=== PATIENT | male | born 1945 | race Caucasian/White ===

== ENCOUNTER 2023-01-26 07:24 | Outpatient (OUT) | payer MEDICARE, SELFPAY ==
[2023-01-26 07:47] LABS: Basophils Absolute Auto 0.1 10^3/uL (0.0-0.1); Basophils Percent Auto 0.7 % (0.2-2.0); Eosinophils Absolute Auto 0.4 10^3/uL (0.0-0.7); Eosinophils Percent Auto 5.6 % (0.9-7.0); Hematocrit 40.2 % (42.0-54.0); Hemoglobin 13.6 g/dL (14.0-18.0); Immature Granulocytes Abs Auto 0.02 10^3/uL (0.00-0.03); Immature Granulocytes Pct Auto 0.3 % (0.0-0.5); Lymphocytes Absolute Auto 1.6 10^3/uL (1.2-3.8); Lymphocytes Percent Auto 21.4 % (20.5-60.0); Mean Corpuscular HGB Conc 33.8 g/dL (29.9-35.2); Mean Corpuscular Hemoglobin 33.2 pg (25.9-34.0); Mean Platelet Volume 10.2 fL (9.5-13.5); Monocytes Absolute Auto 0.7 10^3/uL (0.3-0.8); Monocytes Percent Auto 9.9 % (1.7-12.0); Neutrophils Absolute Auto 4.5 10^3/uL (1.4-6.5); Neutrophils Percent Auto 62.1 % (43.0-75.0); Platelet Count 228 10^3/uL (150-450); Red Cell Distribution Width 13.5 % (11.0-15.0); White Blood Count 7.3 10^3/uL (4.0-11.0)
[2023-01-26 08:14] LABS: Alanine Aminotransferase 25 U/L (16-63); Anion Gap 11.1; Aspartate Amino Transferase 19 U/L (15-37); BUN Creatinine Ratio 8.8; Calcium 8.6 mg/dL (8.5-10.1); Carbon Dioxide 28.5 mmol/L (21.0-32.0); Chloride 103 mmol/L (98-107); Chol HDL Ratio 3.9; Cholesterol 132 mg/dL (<=200); Estimated GFR (African America >60 (>=60); Estimated GFR (Non-African Ame 51 (>=60); Glucose 159 mg/dL (74-106); HDL Cholesterol 34 mg/dL (40-60); Potassium 4.6 mmol/L (3.5-5.1); Sodium 138 mmol/L (136-145); Triglycerides 100 mg/dL (<=150)
== END 2023-01-26 07:25 | disposition home or self-care (01) ==
PROVIDERS: Visit Provider Internal Medicine Cardiovascular Disease
DX: E78.5 Hyperlipidemia, unspecified (principal); I10 Essential (primary) hypertension; I48.19 Other persistent atrial fibrillation
CPT/HCPCS: 36415; 80048; 80061; 84450; 84460; 85025

== ENCOUNTER 2023-03-02 01:07 | Emergency (ER) | payer MEDICARE, SELFPAY ==
[2023-03-02] VITALS (7 sets, daily range): BP systolic 159–207; BP diastolic 77–98; PULSE 57–59; RESP 17–19; O2SAT 95–99; BMI 30.4
--- NOTE | 2023-03-02 01:14 | ED_ITS ---
HPI - Fall General Chief Complaint: Fall Stated Complaint: FALL HEAD HIP INJURY Time Seen by Provider: 03/02/23 01:09 Source: patient and other Source comment: EMS Mode of arrival: ambulance Limitations: physical limitation History of Present Illness HPI Narrative: This 77-year-old male for evaluation after he fell at home. The patient had back surgery when he was 66 years old and 2 disks were removed. He recovered from the back surgery but has had a right-sided foot drop since that time. The patient was in the bathroom this morning when he was getting off of the toilet and slipped falling forward and striking the right side of his face just above his right eyebrow on the door and then fell backwards striking his right hip on a shower chair. He denies any loss of consciousness. He denies any dizziness or chest pain prior to his fall. He is not on any blood thinners. He denies any low back pain but complains of a headache above his left eye, left elbow pain where he landed on his left elbow, left hip pain and left-sided neck pain. He has no weakness numbness or tingling. He lives with a female head of digital. Related Data Home Medications Medication Instructions Recorded Confirmed atorvastatin 80 mg tablet mg 03/02/23 lisinopril 2.5 mg tablet mg 03/02/23 Allergies Allergy/AdvReac Type Severity Reaction Status Date / Time coconut Allergy Intermediate Verified 03/02/23 01:13 Review of Systems ROS Status of ROS 10 or more systems reviewed and unremark able except as noted in history and below Exam Narrative Exam Narrative: Nurses note and vital signs reviewed and patient is not hypoxic. Blood pressure is noted to be elevated at 207/98 General: The patient appears well and in no apparent distress. Patient is resting comfortably on cart. GCS 15 Skin: Warm, dry, no pallor noted. There is no rash noted. Head: Normocephalic, atraumatic, mild tenderness to left frontal area of forehead without crepitus, laceration or abrasion Eye: Normal conjunctiva, no drainage, EOMI. PERRL Ears, Nose, Mouth, and Throat: oral mucosa is moist. Nares patent. Cardiovascular: Regular Rate and Rhythm S1S2, no murmurs, rubs or gallops Respiratory: Patient is in no distress, no accessory muscle use, lungs are clear to auscultation, no wheezing, rales or rhonchi, no chest wall tenderness to palpation Back: non-tender, no CVA tenderness bilaterally to percussion. GI: Normal bowel sounds, no tenderness to palpation, no masses appreciated. No rebound, guarding, or rigidity noted. Stable pelvic rock Musculoskeletal: The patient has no evidence of calf tenderness, no pitting edema, symmetrical pulses noted bilaterally, he has discomfort in his right lateral hip when lifting and bending his right knee, stable pelvic rock. No leg length shortening, mild tenderness with superficial abrasion to the right elbow area where there is a healed scar, pt has full range of motion of the right arm, wrist and fingers. 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 Psychiatric: Cooperative Constitutional Vital Signs, click to edit/add: Last Vital Signs Pulse 57 L 03/02/23 01:30 Resp 19 03/02/23 01:30 BP 163/85 H 03/02/23 02:02 Pulse Ox 95 03/02/23 01:20 O2 Del Method Room Air 03/02/23 01:07 Course Vital Signs Vital signs: Vital Signs Pulse Rate 59 L 03/02/23 01:07 Respiratory Rate 18 03/02/23 01:07 Blood Pressure 207/98 H 03/02/23 01:07 Pulse Oximetry 99 03/02/23 01:07 Oxygen Delivery Method Room Air 03/02/23 01:07 Pulse Rate 57 L 03/02/23 01:30 Respiratory Rate 19 03/02/23 01:30 Blood Pressure 163/85 H 03/02/23 02:02 Pulse Oximetry 95 03/02/23 01:20 Oxygen Delivery Method Room Air 03/02/23 01:07 MDM - Fall MDM Narrative Medical decision making narrative: This 77-year-old male with a history of a drop foot for the past 10 yearss after having back surgery is brought to the emergency department by EMS after having a fall in his bathroom. The patient states that he stood up from the toilet and his right leg gave out on him causing him to fall forward and strike his forehead on the door. He then fell backwards and struck his right hip on a shower chair prior to falling down. He denies loss of consciousness. He denies any dizziness or chest pain prior to his fall. He was immobilized by EMS due to complaint of head injury and left-sided neck pain. His neuro exam was normal. He was able to move his right lower extremity despite having some pain in his right hip. EKG done upon arrival was a sinus rhythm with a prolonged QTc interval at 466 ms. He was mildly tender over his left forehead area. There is no midline bony vertebral tenderness but he was remained in a c-collar until CT scan resulted. CT scan of the head and neck was ordered due to the head injury and fall with neck pain. These are included in the body of this report did not show any acute fracture or dislocation. X-ray of the right hip and right elbow were also ordered and do not show any bony fracture or other notable abnormality. After the CT scans and x-rays resulted the patient was liberated from his c- collar and was able to ambulate with assistance and then independently. He feels comfortable being discharged home. Medical Records Medical records narrative: The [address] [address] [address] Scan Report Signed Patient: SHAHRZAD EDGAR MR#: [id number] : 1945 Acct:[id number] Age/Sex: 77 / M ADM Date: 03/02/23 Loc: ER Attending Dr: Ordering Physician: Benita Patterson Date of Service: 03/02/23 Procedure(s): CT head/brain wo con Accession Number(s): [id number] cc: Physician,Non-Staff M.DMook~ The [address] [address] Patient Name: SHAHRZAD EDGAR MRN: [id number] date: 1945 Sex: M Assigned Patient Location: ER Current Patient Location: ER Accession/Order Number: [id number] Exam Date: 03/02/2023 01:34 Report Date: 03/02/2023 02:05 At the request of: BENITA PATTERSON Procedure: CT head/brain wo con EXAM: CT head/brain wo con HISTORY: fall, head injury COMPARISON: CT head examination dated 04/19/2022. TECHNIQUE: Noncontrast axial CT images through the head were obtained with coronal and sagittal reformats. Dose reduction techniques were achieved by using automated exposure control and/or adjustment of mA and/or kV according to patient size and/or use of iterative reconstruction technique. FINDINGS: There is generalized volume loss. 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 Encephalomalacia is again seen in the left MCA territory. There is decreased attenuation within the periventricular white matter suggestive of chronic microvascular ischemic changes. There is no evidence of intracranial hemorrhage, mass, or midline shift. No extra-axial fluid collection is seen. There is a chronic left mastoid effusion. Otherwise, the visualized paranasal sinuses and mastoid air cells are clear. No skull abnormalities are identified. CT/CT head/brain wo con IMPRESSION: 1. [place] [address] CT Scan Report Signed Patient: SHAHRZAD EDGAR MR#: [id number] : 1945 Acct:[id number] Age/Sex: 77 / M ADM Date: 03/02/23 Loc: ER Attending Dr: Ordering Physician: Benita Patterson Date of Service: 03/02/23 Procedure(s): CT cervical spine wo con Accession Number(s): [id number] cc: Physician,Non-Staff M.D.~ The [place] [id number] Patient Name: SHAHRZAD EDGAR MRN: [id number] date: 1945 Sex: M Assigned Patient Location: ER Current Patient Location: ER Accession/Order Number: [id number] Exam Date: 03/02/2023 01:34 Report Date: 03/02/2023 02:14 At the request of: BENITA PATTERSON Procedure: CT cervical spine wo con EXAM: CT cervical spine wo con HISTORY: fall COMPARISON: CT cervical spine examination dated 04/19/2022. TECHNIQUE: Noncontrast axial CT images through the cervical spine were obtained with coronal and sagittal reformats. Dose reduction techniques were achieved by using automated exposure control and/or adjustment of mA and/or kV according to patient size and/or use of iterative reconstruction technique. FINDINGS: No acute fracture or subluxation is seen. The vertebral body heights are preserved. The vertebral elements are in anatomic alignment. The prevertebral soft tissues are unremarkable. There is advanced degenerative disc disease at C3-C4, C4-C5, C5-C6, C6-C7, and C7-T1. There are multilevel degenerative changes including endplate osteophytes, degenerative facet arthropathy, and uncovertebral hypertrophy. There is severe right neural foraminal narrowing at C3-C4 secondary to a posterior disc osteophyte complex. There is severe left neural foraminal narrowing at C4-C5 secondary to uncovertebral hypertrophy. There is severe bilateral neural foraminal narrowing at C5-C6 secondary to uncovertebral hypertrophy. There is moderate right neural foraminal narrowing at C7-T1 secondary to uncovertebral hypertrophy and degenerative facet arthropathy. There is mild scattered neural foraminal narrowing elsewhere. There is mild spinal canal stenosis at C3-C4 secondary to a posterior disc osteophyte complex. There is mild spinal canal stenosis at C6-C7 secondary to a posterior disc osteophyte complex. CT/CT cervical spine wo con IMPRESSION: 1. No acute fracture or subluxation of the cervical [place] [address] XRay Report Signed Patient: SHAHRZAD EDGAR MR#: [id number] : 1945 Acct:[id number] Age/Sex: 77 / M ADM Date: 03/02/23 Loc: ER Attending Dr: Ordering Physician: Benita Patterson Date of Service: 03/02/23 Procedure(s): XR elbow RT min 3V Accession Number(s): [id number] cc: Benita Patterson; Physician,Non-Staff M.D.~ The [place] [id number] Patient Name: SHAHRZAD EDGAR MRN: [id number] date: 1945 Sex: M Assigned Patient Location: ER Current Patient Location: ER Accession/Order Number: [id number] Exam Date: 03/02/2023 01:52 Report Date: 03/02/2023 02:30 At the request of: BENITA PATTERSON Procedure: XR elbow RT min 3V EXAM: XR elbow RT min 3V HISTORY: fall, elbow pain COMPARISON: None available TECHNIQUE: 3 views right elbow x-rays FINDINGS: No acute fracture line, dislocation, or focal osseous erosion. Prior surgical changes of the elbow with internal fixation device at the ulna and distal humerus. 1.2 cm osseous excrescence at the mid to distal anterior humerus is a remote benign finding. XR/XR elbow RT min 3V IMPRESSION: No radiographic evidence for acute bony injury. If there is persistent clinical concern, cross-sectional imaging to better evaluate as indicated. Electronically authenticated by: OSITO CUELLO Date: 03/02/2023 02:[address] [address] XRay Report Signed Patient: SHAHRZAD EDGAR MR#: [id number] : 1945 Acct:[id number] Age/Sex: 77 / M ADM Date: 03/02/23 Loc: ER Attending Dr: Ordering Physician: Benita Patterson Date of Service: 03/02/23 Procedure(s): XR hip RT 2V w/ pelvis Accession Number(s): [id number] cc: Benita Patterson; Physician,Non-Staff M.D.~ The [address] [address] Patient Name: SHAHRZAD EDGAR MRN: [id number] date: 1945 Sex: M Assigned Patient Location: ER Current Patient Location: ER Accession/Order Number: [id number] Exam Date: 03/02/2023 01:52 Report Date: 03/02/2023 02:30 At the request of: BENITA PATTERSON Procedure: XR hip RT 2V w/ pelvis EXAM: XR hip RT 2V w/ pelvis HISTORY: fall, hip pain COMPARISON: None. TECHNIQUE: One view of the pelvis and 2 views of the right hip were obtained. FINDINGS: No acute fracture or dislocation is seen. The femoral heads are well-seated in the acetabula. There are mild degenerative changes of the sacroiliac joints and the hip joints. The pubic symphysis is preserved. XR/XR hip RT 2V w/ pelvis IMPRESSION: 1. No acute fracture or dislocation of the pelvis or right hip is seen. If there is concern for an occult injury, cross-sectional imaging is recommended. Electronically authenticated by: Hortencia AGRAWAL Date: 03/02/2023 02:30 ECG Data Attestation: I personally reviewed and interpreted this ECG as follows: (Sinus bradycardia at 58 beats for minute, normal axis, QT prolongation at 466 ms, No acute ST segment elevation or T-wave inversion) Discharge Plan Discharge Chief Complaint: Fall Clinical Impression: Closed head injury, Contusion of elbow, right, Contusion of hip, right Patient Disposition: Home, Self-Care Prescriptions / Home Meds: No Action atorvastatin 80 mg tablet lisinopril 2.5 mg tablet Stand Alone Forms: Portal Instructions Referrals: Physician,Non-Staff, MD [Primary Care Provider] - 1 week
--- NOTE | 2023-03-02 01:14 | ECG_ITS ---
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
--- NOTE | 2023-03-02 01:15 | CT_ITS ---
The [address] [address] Patient Name: SHAHRZAD EDGAR MRN: [id number] date: 1945 Sex: M Assigned Patient Location: ER Current Patient Location: ER Accession/Order Number: [id number] Exam Date: 03/02/2023 01:34 Report Date: 03/02/2023 02:05 At the request of: YRN MARKER Procedure: CT head/brain wo con EXAM: CT head/brain wo con HISTORY: fall, head injury COMPARISON: CT head examination dated 04/19/2022. TECHNIQUE: Noncontrast axial CT images through the head were obtained with coronal and sagittal reformats. Dose reduction techniques were achieved by using automated exposure control and/or adjustment of mA and/or kV according to patient size and/or use of iterative reconstruction technique. FINDINGS: There is generalized volume loss. 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 Encephalomalacia is again seen in the left MCA territory. There is decreased attenuation within the periventricular white matter suggestive of chronic microvascular ischemic changes. There is no evidence of intracranial hemorrhage, mass, or midline shift. No extra-axial fluid collection is seen. There is a chronic left mastoid effusion. Otherwise, the visualized paranasal sinuses and mastoid air cells are clear. No skull abnormalities are identified. CT/CT head/brain wo con IMPRESSION: 1. No acute intracranial abnormality. Electronically authenticated by: Hortencia AGRAWAL Date: 03/02/2023 02:05
--- NOTE | 2023-03-02 01:15 | XR_ITS ---
The [place] [id number] Patient Name: SHAHRZAD EDGAR MRN: [id number] date: 1945 Sex: M Assigned Patient Location: ER Current Patient Location: ER Accession/Order Number: [id number] Exam Date: 03/02/2023 01:52 Report Date: 03/02/2023 02:30 At the request of: YRN MARKER Procedure: XR elbow RT min 3V EXAM: XR elbow RT min 3V HISTORY: fall, elbow pain COMPARISON: None available TECHNIQUE: 3 views right elbow x-rays FINDINGS: No acute fracture line, dislocation, or focal osseous erosion. Prior surgical changes of the elbow with internal fixation device at the ulna and distal humerus. 1.2 cm osseous excrescence at the mid to distal anterior humerus is a remote benign finding. XR/XR elbow RT min 3V IMPRESSION: No radiographic evidence for acute bony injury. If there is persistent clinical concern, cross-sectional imaging to better evaluate as indicated. Electronically authenticated by: OSITO CUELLO Date: 03/02/2023 02:30
--- NOTE | 2023-03-02 01:15 | XR_ITS ---
The [address] [address] Patient Name: SHAHRZAD EDGAR MRN: [id number] date: 1945 Sex: M Assigned Patient Location: ER Current Patient Location: ER Accession/Order Number: [id number] Exam Date: 03/02/2023 01:52 Report Date: 03/02/2023 02:30 At the request of: YRN MARKER Procedure: XR hip RT 2V w/ pelvis EXAM: XR hip RT 2V w/ pelvis HISTORY: fall, hip pain COMPARISON: None. TECHNIQUE: One view of the pelvis and 2 views of the right hip were obtained. FINDINGS: No acute fracture or dislocation is seen. The femoral heads are well-seated in the acetabula. There are mild degenerative changes of the sacroiliac joints and the hip joints. The pubic symphysis is preserved. XR/XR hip RT 2V w/ pelvis IMPRESSION: 1. No acute fracture or dislocation of the pelvis or right hip is seen. If there is concern for an occult injury, cross-sectional imaging is recommended. Electronically authenticated by: Hortencia AGRAWAL Date: 03/02/2023 02:30
[2023-03-02] MEDS: ACETAMINOPHEN 325 MG TABLET 650 MG PO (01:34)
[2023-03-02] MEDS: BACITRACIN OINTMENT 28.4 GM TUBE 1 APPLIC TOPICAL (02:58)
== END 2023-03-02 03:03 | disposition home or self-care (01) ==
PROVIDERS: Emergency Provider Emergency Medicine
DX: S09.8XXA Other specified injuries of head, initial encounter (principal); S50.01XA Contusion of right elbow, initial encounter; S70.01XA Contusion of right hip, initial encounter; W01.198A Fall on same level from slipping, tripping and stumbling with subsequent striking against other object, initial encounter; M21.371 Foot drop, right foot; Z79.899 Other long term (current) drug therapy
CPT/HCPCS: 70450; 72125; 73080; 73502; 93005; 99285

== ENCOUNTER 2023-10-04 11:45 | Observation (INO) | payer MEDICARE, SELFPAY ==
[2023-10-04] VITALS (39 sets, daily range): BP systolic 131–165; BP diastolic 70–90; PULSE 49–65; TEMP 36.4–36.6; O2SAT 92–99; BMI 27.0
--- NOTE | 2023-10-04 11:53 | XR_ITS ---
The [address] [address] Patient Name: SHAHRZAD EDGAR MRN: [id number] date: 1945 Sex: M Assigned Patient Location: ER Current Patient Location: ER Accession/Order Number: [id number] Exam Date: 10/04/2023 12:00 Report Date: 10/04/2023 14:39 At the request of: LENORA LAGOS Procedure: XR chest 1V EXAM: XR chest 1V HISTORY: AMS COMPARISON: None. TECHNIQUE: One view was performed. FINDINGS: The cardiomediastinal silhouette appears normal. Lungs are clear. There is no pleural effusion or pneumothorax. There is mild apical pleural thickening. Bones and soft tissues appear unremarkable. XR/XR chest 1V IMPRESSION: No acute cardiopulmonary process. Electronically authenticated by: RAMESH TEMPLE Date: 10/04/2023 14:39
--- NOTE | 2023-10-04 11:53 | ECG_ITS ---
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
--- NOTE | 2023-10-04 11:54 | CT_ITS ---
The [address] [address] Patient Name: SHAHRZAD EDGAR MRN: [id number] date: 1945 Sex: M Assigned Patient Location: ER Current Patient Location: ER Accession/Order Number: [id number] Exam Date: 10/04/2023 11:56 Report Date: 10/04/2023 12:25 At the request of: LENORA LAGOS Procedure: CT stroke head/brain wo con EXAMINATION: CT stroke head/brain wo con, 10/04/2023 11:56 AM EDT HISTORY: CVa symptoms COMPARISON: CT head 03/02/2023. TECHNIQUE: CT scan of the head was performed without IV contrast. CT dose reduction technique was used, including Automated Exposure Control. FINDINGS: BRAIN PARENCHYMA/CSF SPACES: Ventricles are normal in size for age. There is no hemorrhage, mass effect or midline shift. There is atherosclerotic calcification of bilateral carotid arteries. There is a stable large chronic infarct in the right parietal and temporal lobes in the middle cerebral artery distribution. There is a stable small chronic infarct in the left parietal lobe. There is mild low-attenuation in the white matter consistent with chronic small vessel ischemia and there is severe atherosclerotic carotid artery calcification. PARANASAL SINUSES: Clear. SKULL BASE AND CALVARIUM: Normal. EXTRACRANIAL SOFT TISSUES: Normal. CT/CT stroke head/brain wo con IMPRESSION: 1. No acute intracranial abnormality. 2. Stable large chronic infarct in the right MCA distribution and small chronic infarct in the left MCA distribution. 3. Atherosclerotic calcification and chronic microvascular ischemia. Electronically authenticated by: RAMESH TEMPLE Date: 10/04/2023 12:25
[2023-10-04 12:05] LABS: Basophils Absolute Auto 0.1 10^3/uL (0.0-0.1); Basophils Percent Auto 0.8 % (0.2-2.0); Eosinophils Absolute Auto 0.4 10^3/uL (0.0-0.7); Eosinophils Percent Auto 5.7 % (0.9-7.0); Hematocrit 37.7 % (42.0-54.0); Hemoglobin 13.1 g/dL (14.0-18.0); Immature Granulocytes Abs Auto 0.04 10^3/uL (0.00-0.03); Immature Granulocytes Pct Auto 0.5 % (0.0-0.5); Lymphocytes Percent Auto 25.8 % (20.5-60.0); Mean Corpuscular HGB Conc 34.7 g/dL (29.9-35.2); Mean Corpuscular Hemoglobin 34.2 pg (25.9-34.0); Mean Corpuscular Volume 98.4 fL (80.0-94.0); Mean Platelet Volume 10.5 fL (9.5-13.5); Monocytes Absolute Auto 0.9 10^3/uL (0.3-0.8); Neutrophils Absolute Auto 4.4 10^3/uL (1.4-6.5); Neutrophils Percent Auto 56.2 % (43.0-75.0); Platelet Count 215 10^3/uL (150-450); Red Blood Count 3.83 10^6/uL (4.70-6.10); Red Cell Distribution Width 13.8 % (11.0-15.0); White Blood Count 7.7 10^3/uL (4.0-11.0)
[2023-10-04 12:08] LABS: Glucometer 116 mg/dL (74-106)
[2023-10-04 12:25] LABS: Anion Gap 10.3; BUN Creatinine Ratio 11.1; Calcium 8.3 mg/dL (8.5-10.1); Carbon Dioxide 27.3 mmol/L (21.0-32.0); Chloride 104 mmol/L (98-107); Estimated GFR (African America >60 (>=60); Estimated GFR (Non-African Ame 56 (>=60); Glucose 118 mg/dL (74-106); Potassium 3.6 mmol/L (3.5-5.1); Sodium 138 mmol/L (136-145); Troponin I High Sensitivity 6.8 pg/mL (4.0-76.1)
[2023-10-04 12:55] LABS: INR 0.99; Prothrombin Time 10.5 sec (9.0-11.6)
--- NOTE | 2023-10-04 13:40 | ED.GENADUL1 ---
HPI HPI - General Adult General Chief complaint: Altered Mental Status Stated complaint: ALTERED MENTAL STATUS Time Seen by Provider: 10/04/23 11:50 Mode of arrival: ambulance History of Present Illness HPI narrative: 77-year-old male to the emergency department chief complaint of confusion, generalized weakness. EMS brought the patient to the emergency department with concern for stroke. 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 Symptoms began on Thursday after he attended a . Patient reports nonspecific symptoms of feeling generally unwell, generalized weakness. He denies any fever, sweats, chills. Denies any nausea or vomiting. reports that today he woke up at 9 AM and reported that his left side felt funny. This is the side affected by the stroke previously. He thought he had some tingling on that side. He told his to call 911 as he may be having a stroke. Related Data Home Medications ?Medication ?Instructions ?Recorded ?Confirmed atorvastatin 80 mg tablet 80 mg PO DAILY 03/02/23 10/04/23 lisinopril 2.5 mg tablet 2.5 mg PO DAILY 03/02/23 10/04/23 sotalol 120 mg tablet (Sotalol AF) 120 mg PO Q12H 10/04/23 10/04/23 Allergies Allergy/AdvReac Type Severity Reaction Status Date / Time coconut Allergy Intermediate Verified 03/02/23 01:13 Opioid HPI Opioid Management Most Recent Opioid Data: Last ED Pain Assessment 10/04/23 12:11 Review of Systems ROS Status of ROS 10 or more systems reviewed and unremarkable except as noted in history and below Exam Narrative Exam Narrative: Physical exam: VITALS: I have reviewed the triage vital signs. GENERAL: Well developed, well appearing adult in no acute distress. NEURO: Alert and oriented. Moves all extremities. Face is symmetric and expressive. NIHSS as below. EYES: PERRL. No scleral icterus or conjunctival injection. No discharge. HENT: Normocephalic, atraumatic. Hearing is grossly intact. Nares grossly patent and without discharge. Mucous membranes moist. NECK: No JVD. Patient moves neck without restriction. CARDIO: Rhythm regular. Normal rate. No murmur, rub, or gallop. Pulses equal bilaterally in the upper and lower extremity. No lower extremity edema. PULM: Lungs clear to auscultation in all blunt. No wheezes, rales, or rhonchi. No conversational dyspnea. No splinting, stridor, or accessory muscle use. GI/: Abdomen is soft and non-tender. Normoactive bowel sounds. EXTREMITIES: Symmetric muscle bulk. No joint swelling. No clubbing, cyanosis, or deformity. SKIN: Warm and dry. Normal turgor. No rash or lesions appreciated. PSYCH: Mood, affect, and interaction is appropriate to the setting. 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: Obeys both correctly = 0 Best gaze: Normal = 0 Visual field testing: No visual field loss = 0 Facial paresis: Normal symmetric movement = 0 Motor function left arm: Drift = 1 Motor function right arm: Normal = 0 Motor function left leg: Drift = 1 Motor function right leg: Normal = 0 Limb ataxia: No ataxia = 0 Sensory: Subjective sensation change on left = 1 Best language: No aphasia = 0 Dysarthria: Normal articulation = 0 Extinction and inattention: Normal = 0 Total Score (severe deficit >22): 3 Constitutional Vital Signs, click to edit/add: Last Vital Signs Temp 97.9 F 10/04/23 11:49 Pulse 52 L 10/04/23 12:40 Resp 18 10/04/23 12:50 BP 131/86 10/04/23 12:30 Pulse Ox 96 10/04/23 12:40 O2 Del Method Room Air 10/04/23 12:11 Course Vital Signs Vital signs: Vital Signs Temperature 97.9 F 10/04/23 11:49 Pulse Rate 65 10/04/23 11:49 Respiratory Rate 20 10/04/23 11:49 Blood Pressure 156/81 H 10/04/23 11:49 Pulse Oximetry 97 10/04/23 11:49 Oxygen Delivery Method Room Air 10/04/23 11:49 Temperature 97.9 F 10/04/23 11:49 Pulse Rate 52 L 10/04/23 12:40 Respiratory Rate 18 10/04/23 12:50 Blood Pressure 131/86 10/04/23 12:30 Pulse Oximetry 96 10/04/23 12:40 Oxygen Delivery Method Room Air 10/04/23 12:11 Medical Decision Making MDM Narrative Medical decision making narrative: 77-year-old male to the emergency department chief complaint of several days of feeling unwell, generalized weakness. Vital stable, the patient is afebrile. Per EMS's description and 's description via telephone to nurse Willis patient appears to be at his neurologic baseline with left-sided weakness and paresthesia. By chart review he does have a history of a right MCA and a left MCA stroke. The right MCA was a very large stroke. CT head is negative except for his chronic findings of right and left MCA infarct. Lab work is unremarkable. COVID testing negative. tPA was not given to this patient as he is not within the window, low NIHSS stroke scale (baseline), other diagnosis more likely than ischemic stroke. Case was discussed with Dr. Avila the hospitalist who agreed admit the patient. [facility]. I did discuss with Dr. Partida who agrees with care thus far, no TPA, OK to stay at [place] for work-up. [facility] DATA #[id number]: Stroke & Stroke Rehabilitation: Thrombolytic Therapy [x] Patient arrived more than 3.5 hours after last known well time, or the time last known well is unknown Medical Records Medical records reviewed: Yes I reviewed the patient's medical records Lab Data Lab results reviewed: Yes I reviewed the patient's lab results Labs: Lab Results 10/04/23 10/04/23 10/04/23 Range/Units 11:53 12:06 12:35 WBC 7.7 (4.0-11.0) 10^3/uL RBC 3.83 L (4.70-6.10) 10^6/uL Hgb 13.1 L (14.0-18.0) g/dL Hct 37.7 L (42.0-54.0) % MCV 98.4 H (80.0-94.0) fL MCH 34.2 H (25.9-34.0) pg MCHC 34.7 (29.9-35.2) g/dL RDW 13.8 (11.0-15.0) % Plt Count 215 (150-450) 10^3/uL MPV 10.5 (9.5-13.5) fL Neut % (Auto) 56.2 (43.0-75.0) % Lymph % (Auto) 25.8 (20.5-60.0) % [place] % (Auto) 11.0 (1.7-12.0) % Eos % (Auto) 5.7 (0.9-7.0) % Baso % (Auto) 0.8 (0.2-2.0) % Neut # (Auto) 4.4 (1.4-6.5) 10^3/uL Lymph # (Auto) 2.0 (1.2-3.8) 10^3/uL [place] # (Auto) 0.9 H (0.3-0.8) 10^3/uL Eos # (Auto) 0.4 (0.0-0.7) 10^3/uL Baso # (Auto) 0.1 (0.0-0.1) 10^3/uL Abs Immat Gran (auto) 0.04 H (0.00-0.03) 10^3/uL Imm/Tot Granulo (auto) 0.5 (0.0-0.5) % PT 10.5 (9.0-11.6) sec INR 0.99 APTT 28.0 (22.3-36.2) sec Sodium 138 (136-145) mmol/L Potassium 3.6 (3.5-5.1) mmol/L Chloride 104 (98-107) mmol/L Carbon Dioxide 27.3 (21.0-32.0) mmol/L Anion Gap 10.3 BUN 14.0 (7.0-18.0) mg/dL Creatinine 1.26 (0.70-1.30) mg/dL Est GFR ( Amer) >60 (>=60) Est GFR (Non-Af Amer) 56 L (>=60) BUN/Creatinine Ratio 11.1 Glucose 118 H (74-106) mg/dL Calcium 8.3 L (8.5-10.1) mg/dL Troponin I High Sens 6.8 (4.0-76.1) pg/mL SARS-CoV-2 Ag (CV2AG) (NEGATIVE) POC Glucose 116 H (74-106) mg/dL 10/04/23 Range/Units 13:09 WBC (4.0-11.0) 10^3/uL RBC (4.70-6.10) 10^6/uL Hgb (14.0-18.0) g/dL Hct (42.0-54.0) % MCV (80.0-94.0) fL MCH (25.9-34.0) pg MCHC (29.9-35.2) g/dL RDW (11.0-15.0) % Plt Count (150-450) 10^3/uL MPV (9.5-13.5) fL Neut % (Auto) (43.0-75.0) % Lymph % (Auto) (20.5-60.0) % [place] % (Auto) (1.7-12.0) % Eos % (Auto) (0.9-7.0) % Baso % (Auto) (0.2-2.0) % Neut # (Auto) (1.4-6.5) 10^3/uL Lymph # (Auto) (1.2-3.8) 10^3/uL [place] # (Auto) (0.3-0.8) 10^3/uL Eos # (Auto) (0.0-0.7) 10^3/uL Baso # (Auto) (0.0-0.1) 10^3/uL Abs Immat Gran (auto) (0.00-0.03) 10^3/uL Imm/Tot Granulo (auto) (0.0-0.5) % PT (9.0-11.6) sec INR APTT (22.3-36.2) sec Sodium (136-145) mmol/L Potassium (3.5-5.1) mmol/L Chloride (98-107) mmol/L Carbon Dioxide (21.0-32.0) mmol/L Anion Gap BUN (7.0-18.0) mg/dL Creatinine (0.70-1.30) mg/dL Est GFR ( Amer) (>=60) Est GFR (Non-Af Amer) (>=60) BUN/Creatinine Ratio Glucose (74-106) mg/dL Calcium (8.5-10.1) mg/dL Troponin I High Sens (4.0-76.1) pg/mL SARS-CoV-2 Ag (CV2AG) Negative (NEGATIVE) POC Glucose (74-106) mg/dL Imaging Data CT scan - head: Radiologist's impression: ITS Impressions Brain CT 10/04/23 11:54 IMPRESSION: 1. No acute intracranial abnormality. 2. Stable large chronic infarct in the right MCA distribution and small chronic infarct in the left MCA distribution. 3. Atherosclerotic calcification and chronic microvascular ischemia. Electronically authenticated by: RAMESH TEMPLE Date: 10/04/2023 12:25 ECG Data Attestation: I personally reviewed and interpreted this ECG as follows: (Sinus david at 56. No stemi. Normal QTc. ) Critical Care Time Critical Care Time Critical Care Time: Yes Total Critical Care Time: 32 Attestation: Critical Care Procedure Note Authorized and Performed by: Amor Tyler DO Total critical care time: 32 min Due to a high probability of clinically significant, life threatening deterioration, the patient required my highest level of preparedness to intervene emergently and I personally spent this critical care time directly and personally managing the patient. This critical care time included obtaining a history; examining the patient; pulse oximetry; ordering and review of studies; arranging urgent treatment with development of a management plan; evaluation of patient's response to treatment; frequent reassessment; and, discussions with other providers. This critical care time was performed to assess and manage the high probability of imminent, life-threatening deterioration that could result in multi-organ failure. It was exclusive of separately billable procedures and treating other patients and teaching time. Please see MDM section and the rest of the note for further information on patient assessment and treatment. Discharge Plan Discharge Chief Complaint: Altered Mental Status Clinical Impression: Generalized weakness, Acute metabolic encephalopathy, History of stroke Patient Disposition: Admitted as Observation Time of Disposition Decision: 14:03 Condition: Fair Prescriptions / Home Meds: No Action atorvastatin 80 mg tablet 80 mg PO DAILY lisinopril 2.5 mg tablet 2.5 mg PO DAILY sotalol [Sotalol AF] 120 mg tablet 120 mg PO Q12H Print Language: Icelandic Referrals: Physician,Non-Staff, MD [Primary Care Provider] - 1 week
[2023-10-04 13:55] LABS: Internal Control Within Normal Limits; SARS-CoV-2 Ag NEGATIVE (NEGATIVE)
--- NOTE | 2023-10-04 14:13 | P.HP_ITS ---
HPI H&P: HPI History of Present Illness Chief complaint: ALTERED MENTAL STATUS Narrative: Patient was seen and evaluated in the emergency room after feeling like he was having a stroke earlier in the day. He had tingling into his left arm. That is since resolved. He felt maybe the left arm is a little weaker than normal. He did suffer a stroke in the past with resultant left-sided weakness. This morning however he just tripped and fell. 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 When I saw patient in the emergency room, he was sitting in the cot resting comfortably, denied any current complaints, denied current chest pain states earlier in the day he did have chest pain as well. More pressure type. Has not had any other anginal symptoms leading up to today. Currently he just feels weak, still feels like the left side may be is weaker than it normally is for him. He was exposed to COVID 5 days ago. COVID test is negative. Opioid HPI Opioid Management Most Recent Pain and Opioid Data: Last ED Pain Assessment 10/04/23 12:11 Review of Systems ROS Status of ROS 10 or more systems reviewed and unremark able except as noted in history and below Meds Home Medications and Allergies Home Medications ?Medication ?Instructions ?Recorded ?Confirmed ?Type atorvastatin 80 mg tablet 80 mg PO DAILY 03/02/23 10/04/23 History lisinopril 2.5 mg tablet 2.5 mg PO DAILY 03/02/23 10/04/23 History sotalol 120 mg tablet (Sotalol AF) 120 mg PO Q12H 10/04/23 10/04/23 History Allergies Allergy/AdvReac Type Severity Reaction Status Date / Time coconut Allergy Intermediate Verified 03/02/23 01:13 Exam Constitutional Vital Signs, click to edit/add: Last Vital Signs Temp 97.9 F 10/04/23 11:49 Pulse 52 L 10/04/23 12:40 Resp 18 10/04/23 12:50 BP 131/86 10/04/23 12:30 Pulse Ox 96 10/04/23 12:40 O2 Del Method Room Air 10/04/23 12:11 Documenting provider has reviewed patient's vital signs: yes Common normals: no apparent distress Neck & C-Spine Common normals: full ROM, no lymphadenopathy, supple, no meningeal signs and no carotid bruits Respiratory Common normals: normal respiratory effort and no retractions Cardio Common normals: regular rate, regular rhythm and no murmurs GI Common normals: Normal to inspection, nondistended, normoactive bowel sounds present, soft to palpation, no hepatosplenomegaly and no masses Neuro Common normals: oriented x3, CN's II-XII intact bilaterally and moves all extremities; focal motor deficits (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, left drift) Results Labs Labs: Short CBC 10/04/23 Range/Units 11:53 WBC 7.7 (4.0-11.0) 10^3/uL Hgb 13.1 L (14.0-18.0) g/dL Hct 37.7 L (42.0-54.0) % Plt Count 215 (150-450) 10^3/uL BMP 10/04/23 11:53 Sodium 138 Potassium 3.6 Chloride 104 Carbon Dioxide 27.3 BUN 14.0 Creatinine 1.26 Glucose 118 H Calcium 8.3 L Assessment and Plan Assessment and Plan (1) History of stroke: (2) Generalized weakness: (3) Acute metabolic encephalopathy: Plan Patient with some altered mental status morning, left-sided weakness and tingling, consult to telestroke has been placed, history of CVA with resultant left-sided weakness. Currently he is without symptoms. Check MRI scan and CTA neck tomorrow. Consult to telestroke, start patient on baby aspirin. Neurochecks. Telemetry. Hypertension by history-bradycardic. Will decrease his blood pressure medication dosing. Watch closely may need to increase his JENNIFER inhibitor. Continue with sotalol but 80 mg twice a day Altered mental status, return to baseline currently, exposed to COVID but COVID test is negative. Check thyroid profile and urinalysis. Sinus bradycardia likely related to blood pressure medication-monitor on telemetry Admission status: Patient with a history of CVA with resultant left-sided weakness. Progress today with tingling, new onset the patient, that has resolved, consult to telestroke, medically necessary treatment likely will span 1 midnight, place patient observation status
[2023-10-04 14:43] LABS: Troponin I High Sensitivity 6.9 pg/mL (4.0-76.1)
[2023-10-04 14:54] LABS: Alanine Aminotransferase 22 U/L (16-63); Albumin Globulin Ratio 0.9; Albumin Level 3.5 g/dL (3.4-5.0); Alkaline Phosphatase 94 U/L (46-116); Aspartate Amino Transferase 16 U/L (15-37); Bilirubin Direct 0.3 mg/dL (0.0-0.2); Bilirubin Total 1.1 mg/dL (0.2-1.0); Free T3 2.27 pg/mL (2.18-3.98); Globulin 3.7 g/dL; Magnesium 1.8 mg/dL (1.8-2.4); Thyroid Stimulating Hormone 1.606 uIU/mL (0.358-3.740); Total Protein 7.2 g/dL (6.4-8.2)
[2023-10-04 17:48] LABS: Troponin I High Sensitivity 6.9 pg/mL (4.0-76.1)
[2023-10-04] MEDS: SOTALOL HCL 80 MG TABLET PO (20:40)
[2023-10-05] VITALS: PULSE 51
[2023-10-05 02:00] VITALS: PULSE 50
[2023-10-05 03:15] VITALS: BP 148/79; PULSE 54; TEMP 36.7; O2SAT 94
[2023-10-05 04:00] VITALS: PULSE 51
[2023-10-05 05:33] LABS: Basophils Absolute Auto 0.1 10^3/uL (0.0-0.1); Basophils Percent Auto 0.6 % (0.2-2.0); Eosinophils Absolute Auto 0.4 10^3/uL (0.0-0.7); Eosinophils Percent Auto 4.9 % (0.9-7.0); Hematocrit 37.7 % (42.0-54.0); Hemoglobin 12.7 g/dL (14.0-18.0); Immature Granulocytes Abs Auto 0.01 10^3/uL (0.00-0.03); Immature Granulocytes Pct Auto 0.1 % (0.0-0.5); Lymphocytes Absolute Auto 1.7 10^3/uL (1.2-3.8); Lymphocytes Percent Auto 21.8 % (20.5-60.0); Mean Corpuscular HGB Conc 33.7 g/dL (29.9-35.2); Mean Corpuscular Hemoglobin 33.5 pg (25.9-34.0); Mean Corpuscular Volume 99.5 fL (80.0-94.0); Mean Platelet Volume 10.3 fL (9.5-13.5); Monocytes Absolute Auto 0.7 10^3/uL (0.3-0.8); Monocytes Percent Auto 9.4 % (1.7-12.0); Neutrophils Absolute Auto 4.9 10^3/uL (1.4-6.5); Neutrophils Percent Auto 63.2 % (43.0-75.0); Platelet Count 199 10^3/uL (150-450); Red Blood Count 3.79 10^6/uL (4.70-6.10); Red Cell Distribution Width 13.7 % (11.0-15.0); White Blood Count 7.7 10^3/uL (4.0-11.0)
[2023-10-05 05:53] LABS: Anion Gap 12.4; BUN Creatinine Ratio 11.1; Calcium 8.5 mg/dL (8.5-10.1); Carbon Dioxide 25.6 mmol/L (21.0-32.0); Chloride 103 mmol/L (98-107); Estimated GFR (African America >60 (>=60); Estimated GFR (Non-African Ame 56 (>=60); Glucose 119 mg/dL (74-106); Sodium 137 mmol/L (136-145)
--- NOTE | 2023-10-05 06:00 | CT_ITS ---
The [address] [address] Patient Name: SHAHRZAD EDGAR MRN: [id number] date: 1945 Sex: M Assigned Patient Location: [place] Current Patient Location: [place] Accession/Order Number: [id number] Exam Date: 10/05/2023 08:34 Report Date: 10/05/2023 09:33 At the request of: ZACHARIAH OCHOA Procedure: CT angio neck EXAM: CT angio neck, CT angio head HISTORY: AMS COMPARISON: CT head 10/04/2023. TECHNIQUE: Post contrast CTA imaging of the head and neck was performed with coronal and sagittal reformats. Maximum intensity projection and 3-D reformats were performed on a separate workstation. NASCET criteria was utilized. This CT exam was performed using one or more of the following dose reduction techniques: Automated exposure control, adjustment of the MA and/or kV according to patient size, or use of iterative reconstruction technique. FINDINGS: Calvarium/skull base: No evidence of acute fracture or destructive lesion. Mastoids and middle ears demonstrate no substantial mucosal disease. Paranasal sinuses: No air fluid levels. Brain: No acute intracranial hemorrhage. No acute large vascular territory infarct. No mass lesion or mass effect. No hydrocephalus. Aortic arch: Imaged portion shows no evidence of aneurysm. No significant stenosis of the major origins of the major arch vessels. Right carotid system: There is dense atherosclerotic calcification of the high right common carotid artery and carotid bulb with slightly lesser involvement of the origin of the right internal and external carotid arteries. There is short segment approximately 50% stenosis involving the carotid bulb. Left carotid system: Mixed atherosclerotic changes present involving the left carotid system greater involving the carotid bulb and origin of the internal carotid artery without hemodynamically significant stenosis. Vertebral arteries: The left vertebral artery originates from the aortic arch. Left vertebral artery dominance. No evidence of significant (50% or greater) stenosis or occlusion. Anterior circulation: No evidence of aneurysm, significant stenosis, or occlusion. Vertebrobasilar system: No evidence of aneurysm, significant stenosis, or occlusion. Bilateral type posterior cerebral arteries. Venous sinuses: Grossly patent. Additional findings: Mild emphysema involving the visualized upper lungs. No abnormal intraparenchymal enhancement. CT/CT angio neck IMPRESSION: 1. Approximately 50% short segment stenosis involving the right carotid bulb. 2. There is otherwise no significant stenosis, large vessel occlusion or aneurysm involving the remaining neck or intracranial arterial vasculature. 3. Normal variant anatomy involving the posterior circulation. Electronically authenticated by: EULALIO COCHRAN Date: 10/05/2023 09:33
[2023-10-05 06:16] VITALS: PULSE 52
--- NOTE | 2023-10-05 06:49 | P.DS_ITS ---
DS: Providers Provider Date of admission: 10/04/23 16:15 Primary care physician: Non-Staff Physician, Consults: 10/04/23 13:50 Consult to Telestroke Routine Reason for consultation: left weakness Has provider been notified: Yes 10/04/23 14:04 Consult to Pharmacy Routine Consulting Provider: Reason for consultation: Please [place] me when Med Rec is Updated Has provider been notified: No Occupational Therapy Eval and Treat Routine Reason for consultation: Only if needed for Rehab Has provider been notified: No Physical Therapy Eval and Treat Routine Reason for consultation: Eval and Treat Has provider been notified: No 10/05/23 07:15 Consult to Telestroke Routine Reason for consultation: follow up from ER Has provider been notified: No DS: Diagnosis Discharge Diagnosis (1) History of stroke: (2) Generalized weakness: (3) Acute metabolic encephalopathy: Plan Patient with some altered mental status morning, left-sided weakness and tingling, consult to telestroke has been placed, history of CVA with resultant left-sided weakness. Currently he is without symptoms. Check MRI scan and CTA neck tomorrow. Consult to telestroke, start patient on baby aspirin. Neurochecks. Telemetry. Hypertension by history-bradycardic. Will decrease his blood pressure medication dosing. Watch closely may need to increase his JENNIFER inhibitor. Continue with sotalol but 80 mg twice a day Altered mental status, return to baseline currently, exposed to COVID but COVID test is negative. Check thyroid profile and urinalysis. Sinus bradycardia likely related to blood pressure medication-monitor on telemetry Admission status: Patient with a history of CVA with resultant left-sided weakness. Progress today with tingling, new onset the patient, that has resolved, consult to telestroke, medically necessary treatment likely will span 1 midnight, place patient observation status ? DS: Summary Hospital Course Hospital Course: Patient was seen and evaluated in the emergency room after he told his that he thought he was having a recurrence of his stroke. Is having tingling of his left arm, this episode lasted for approximately 3 hours. Evaluation in the emergency room was unremarkable. No new neurological deficits, he has some left-sided weakness persisting from previous stroke. He was admitted overnight for observation, CT scan head and neck were completed without any significant acute changes. He feels back to his baseline. He would prefer to be discharged to home in with continue with any workup as an outpatient. Aspirin was not on his home medication list but add an aspirin a day. Follow-up with his PCP within the next week. Medications see list. Status at Discharge Overall status at discharge: patient is back to baseline Time Spent with Patient Time attestation: Total time spent providing and/or coordinating discharge services: Time spent: greater than 30 minutes Exam Constitutional Vital Signs, click to edit/add: Last Vital Signs Temp 98.0 F 10/05/23 03:15 Pulse 52 L 10/05/23 06:16 Resp 18 10/05/23 03:15 BP 148/79 H 10/05/23 03:15 Pulse Ox 94 L 10/05/23 03:15 O2 Del Method Room Air 10/05/23 03:15 Documenting provider has reviewed patient's vital signs: yes Common normals: no apparent distress Neck & C-Spine Common normals: full ROM, no lymphadenopathy, supple, no meningeal signs and no carotid bruits Respiratory Common normals: normal respiratory effort and no retractions Cardio Common normals: regular rate, regular rhythm and no murmurs GI Common normals: Normal to inspection, nondistended, normoactive bowel sounds present, soft to palpation, no hepatosplenomegaly and no masses Neuro Common normals: oriented x3, CN's II-XII intact bilaterally and moves all extremities; focal motor deficits (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 pitching coach strength, left drift) DS: Data Data Completed and Pending Labs on day of discharge: Labs from last 24 hours 10/05/23 10/04/23 10/04/23 05:22 17:27 14:21 WBC 7.7 RBC 3.79 L Hgb 12.7 L Hct 37.7 L MCV 99.5 H MCH 33.5 MCHC 33.7 RDW 13.7 Plt Count 199 MPV 10.3 Neut % (Auto) 63.2 Lymph % (Auto) 21.8 [place] % (Auto) 9.4 Eos % (Auto) 4.9 Baso % (Auto) 0.6 Neut # (Auto) 4.9 Lymph # (Auto) 1.7 [place] # (Auto) 0.7 Eos # (Auto) 0.4 Baso # (Auto) 0.1 Abs Immat Gran (auto) 0.01 Imm/Tot Granulo (auto) 0.1 PT INR APTT Sodium 137 Potassium 4.0 Chloride 103 Carbon Dioxide 25.6 Anion Gap 12.4 BUN 14.0 Creatinine 1.26 Est GFR ( Amer) >60 Est GFR (Non-Af Amer) 56 L BUN/Creatinine Ratio 11.1 Glucose 119 H Calcium 8.5 Magnesium 1.8 Total Bilirubin 1.1 H Direct Bilirubin 0.3 H AST 16 ALT 22 Alkaline Phosphatase 94 Troponin I High Sens 6.9 6.9 Total Protein 7.2 Albumin 3.5 Globulin 3.7 Albumin/Globulin Ratio 0.9 TSH 1.606 Thyroxine (T4) 9.40 Free T3 2.27 SARS-CoV-2 Ag (CV2AG) POC Glucose 10/04/23 10/04/23 10/04/23 13:09 12:35 12:06 WBC RBC Hgb Hct MCV MCH MCHC RDW Plt Count MPV Neut % (Auto) Lymph % (Auto) [place] % (Auto) Eos % (Auto) Baso % (Auto) Neut # (Auto) Lymph # (Auto) [place] # (Auto) Eos # (Auto) Baso # (Auto) Abs Immat Gran (auto) Imm/Tot Granulo (auto) PT 10.5 INR 0.99 APTT 28.0 Sodium Potassium Chloride Carbon Dioxide Anion Gap BUN Creatinine Est GFR ( Amer) Est GFR (Non-Af Amer) BUN/Creatinine Ratio Glucose Calcium Magnesium Total Bilirubin Direct Bilirubin AST ALT Alkaline Phosphatase Troponin I High Sens Total Protein Albumin Globulin Albumin/Globulin Ratio TSH Thyroxine (T4) Free T3 SARS-CoV-2 Ag (CV2AG) Negative POC Glucose 116 H 10/04/23 11:53 WBC 7.7 RBC 3.83 L Hgb 13.1 L Hct 37.7 L MCV 98.4 H MCH 34.2 H MCHC 34.7 RDW 13.8 Plt Count 215 MPV 10.5 Neut % (Auto) 56.2 Lymph % (Auto) 25.8 [place] % (Auto) 11.0 Eos % (Auto) 5.7 Baso % (Auto) 0.8 Neut # (Auto) 4.4 Lymph # (Auto) 2.0 [place] # (Auto) 0.9 H Eos # (Auto) 0.4 Baso # (Auto) 0.1 Abs Immat Gran (auto) 0.04 H Imm/Tot Granulo (auto) 0.5 PT INR APTT Sodium 138 Potassium 3.6 Chloride 104 Carbon Dioxide 27.3 Anion Gap 10.3 BUN 14.0 Creatinine 1.26 Est GFR ( Amer) >60 Est GFR (Non-Af Amer) 56 L BUN/Creatinine Ratio 11.1 Glucose 118 H Calcium 8.3 L Magnesium Total Bilirubin Direct Bilirubin AST ALT Alkaline Phosphatase Troponin I High Sens 6.8 Total Protein Albumin Globulin Albumin/Globulin Ratio TSH Thyroxine (T4) Free T3 SARS-CoV-2 Ag (CV2AG) POC Glucose Discharge Plan Discharge Disposition: Home, Self-Care Condition: Fair Discharge Medications: New sotalol 80 mg Tablet 80 mg PO BID Qty: 60 11RF aspirin 81 mg Tablet,Delayed Release (Dr/Ec) 81 mg PO QD Qty: 30 11RF lisinopril 10 mg Tablet 5 mg PO DAILY Qty: 30 11RF Continued atorvastatin 80 mg tablet 80 mg PO DAILY Discontinued lisinopril 2.5 mg tablet 2.5 mg PO DAILY sotalol [Sotalol AF] 120 mg tablet 120 mg PO Q12H Print Language: [place] Citizen Patient Instructions: Lisinopril (By mouth), Aspirin (By mouth), Sotalol (By mouth), Encephalopathy (DC) Forms: Portal Instructions Follow Up Appointments: October 11 @ 1pm with Desiree Cuellar NP [id number] [facility] [phone] Discharge Date/Time: 10/05/23 10:45
[2023-10-05 08:00] VITALS: BP 168/83; PULSE 59; TEMP 36.5; O2SAT 95
--- NOTE | 2023-10-05 08:25 | CT_ITS ---
The [address] [address] Patient Name: SHAHRZAD EDGAR MRN: [id number] date: 1945 Sex: M Assigned Patient Location: MS Current Patient Location: MS Accession/Order Number: [id number] Exam Date: 10/05/2023 08:34 Report Date: 10/05/2023 09:33 At the request of: ZACHARIAH OCHOA Procedure: CT angio head EXAM: CT angio neck, CT angio head HISTORY: AMS COMPARISON: CT head 10/04/2023. TECHNIQUE: Post contrast CTA imaging of the head and neck was performed with coronal and sagittal reformats. Maximum intensity projection and 3-D reformats were performed on a separate workstation. NASCET criteria was utilized. This CT exam was performed using one or more of the following dose reduction techniques: Automated exposure control, adjustment of the MA and/or kV according to patient size, or use of iterative reconstruction technique. FINDINGS: Calvarium/skull base: No evidence of acute fracture or destructive lesion. Mastoids and middle ears demonstrate no substantial mucosal disease. Paranasal sinuses: No air fluid levels. Brain: No acute intracranial hemorrhage. No acute large vascular territory infarct. No mass lesion or mass effect. No hydrocephalus. Aortic arch: Imaged portion shows no evidence of aneurysm. No significant stenosis of the major origins of the major arch vessels. Right carotid system: There is dense atherosclerotic calcification of the high right common carotid artery and carotid bulb with slightly lesser involvement of the origin of the right internal and external carotid arteries. There is short segment approximately 50% stenosis involving the carotid bulb. Left carotid system: Mixed atherosclerotic changes present involving the left carotid system greater involving the carotid bulb and origin of the internal carotid artery without hemodynamically significant stenosis. Vertebral arteries: The left vertebral artery originates from the aortic arch. Left vertebral artery dominance. No evidence of significant (50% or greater) stenosis or occlusion. Anterior circulation: No evidence of aneurysm, significant stenosis, or occlusion. Vertebrobasilar system: No evidence of aneurysm, significant stenosis, or occlusion. Bilateral type posterior cerebral arteries. Venous sinuses: Grossly patent. Additional findings: Mild emphysema involving the visualized upper lungs. No abnormal intraparenchymal enhancement. CT/CT angio head IMPRESSION: 1. Approximately 50% short segment stenosis involving the right carotid bulb. 2. There is otherwise no significant stenosis, large vessel occlusion or aneurysm involving the remaining neck or intracranial arterial vasculature. 3. Normal variant anatomy involving the posterior circulation. Electronically authenticated by: EULALIO COCHRAN Date: 10/05/2023 09:33
--- NOTE | 2023-10-05 09:15 | CM.NOTE ---
Rounds made with Dr. Avila. Potential discharge later today after MRI/CT neck. Verbalizes understanding.
--- NOTE | 2023-10-05 10:06 | SWNOTE1 ---
SW met with pt to discuss dc needs. Pt was sitting on edge of the bed asking when he could be discharged. SW advised pt that once he has MRI and CT done then doctor will review and if everything is alright, he can be discharged. He voiced he refused the MRI due to being claustrophobic and he had the CT done already. SW advised pt that SW will check with nursing. SW asked if he worked with therapy, he voiced he did. Pt lives at home with a lady friend. Pt has a cane at home that he does use when he is out and about. Pt does not have any concerns about discharge and is ready to go. SW spoke to nursing and she will be in to talk to pt shortly. SW let pt know. SW checked therapy notes and pt did well with therapy, no needs. Medicare Outpatient Observation Notice reviewed and discussed with patient. Pt. verbalized understanding and signed the form. Original given to patient and copy placed in patient?s chart.
[2023-10-05] MEDS: LISINOPRIL 10 MG TABLET 5 MG PO (10:24)
[2023-10-05] MEDS: ASPIRIN 81 MG TABLET.DR PO (10:24)
[2023-10-05] MEDS: ATORVASTATIN CALCIUM 40 MG TABLET 80 MG PO (10:25)
[2023-10-05] MEDS: SOTALOL HCL 80 MG TABLET PO (10:27)
--- NOTE | 2023-10-05 11:12 | NUTR.NU ---
Pt was admitted this date w/dx CHI, acute metabolicy encephalopathy, general weakness. He has h/o AK, CVA w/associated foot drop; follows regular diet. BMI 27.0 is WNR for age. No nutritional needs at this time. Pt was discharged following completion of CT (head/neck).
--- NOTE | 2023-10-06 12:36 | CM.DCFOLLOWU ---
1st attempt 10/06/23
--- NOTE | 2023-10-07 11:29 | CM.DCFOLLOWU ---
Person spoke with:patient How are you feeling? well, was at a picnic How is your pain? none Did you understand your discharge instructions? yes Do you have any questions about your discharge instructions? no Were you given any prescriptions at discharge? yes Were you able to get your prescriptions filled? yes Do you understand how to take your medications as ordered? yes Do you have any questions about your follow up appointment and do you plan to keep your follow up appointment? no questions, follow ups reviewed Is there anything else that you would like to discuss? no Questions/Comments/Concerns/Other: none
== END 2023-10-05 10:45 | disposition home or self-care (01) ==
LOC: ER 14:05 → MS 10-05 06:04
PROVIDERS: Admitting Provider Family Medicine; Emergency Provider Student in an Organized Health Care Education/Training Program; Visit Provider Family Medicine
DX: R20.2 Paresthesia of skin (principal); I69.354 Hemiplegia and hemiparesis following cerebral infarction affecting left non-dominant side; Z20.822 Contact with and (suspected) exposure to COVID-19; M21.371 Foot drop, right foot; I10 Essential (primary) hypertension; R00.1 Bradycardia, unspecified; R41.82 Altered mental status, unspecified; G93.41 Metabolic encephalopathy
CPT/HCPCS: 36415; 70450; 70496; 70498; 71045; 80048; 80076; 81001; 82948; 83735; 84436; 84443; 84481; 84484; 85025; 85610; 85730; 87086; 87811; 93005; 93242; 94761; 97161; 97165; 99285; G0378; Q9967

== ENCOUNTER 2023-10-22 09:48 | Outpatient (OUT) | payer MEDICARE, SELFPAY | END 2023-10-22 09:49 | disposition home or self-care (01) | LOC: CARD 09:49 | PROVIDERS: Visit Provider Nurse Practitioner Family | DX: I48.91 Unspecified atrial fibrillation (principal) | CPT/HCPCS: 93246 ==

== ENCOUNTER 2024-04-05 07:24 | Observation (INO) | payer MEDICARE, SELFPAY ==
[2024-04-05] VITALS (25 sets, daily range): BP systolic 119–164; BP diastolic 71–89; PULSE 67–114; TEMP 36.5–37.5; O2SAT 89–96; BMI 27.4; BMI 26.2
--- NOTE | 2024-04-05 07:29 | CT_ITS ---
The [address] [address] Patient Name: SHAHRZAD EDGAR MRN: [id number] date: 1945 Sex: M Assigned Patient Location: ER Current Patient Location: ER Accession/Order Number: [id number] Exam Date: 04/05/2024 07:39 Report Date: 04/05/2024 08:04 At the request of: HUI LOREDO Procedure: CT stroke head/brain wo con NONCONTRAST HEAD CT COMPARISON: Head CT 10/04/2023. CLINICAL HISTORY: Right-sided weakness. TECHNIQUE: Routine noncontrast images of the brain obtained. CT examination of the head without IV contrast. Dose reduction techniques were achieved by using: automated exposure control and/or adjustment of mA and /or kV according to patient size and/or use of iterative reconstruction technique. FINDINGS: Paranasal sinuses and mastoid air cells are clear. Intraorbital contents are unremarkable. No acute bony abnormality. Intracranially, there is no evidence of hemorrhage, mass effect, or midline shift. Brain is atrophic. Remote large right MCA and smaller left posterior MCA distribution infarcts with associated encephalomalacia. Dense carotid calcifications. . CT/CT stroke head/brain wo con IMPRESSION: No acute intracranial hemorrhage. 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 Electronically authenticated by: DENNYS MOMIN Date: 04/05/2024 08:04
--- NOTE | 2024-04-05 07:30 | ED_ITS ---
HPI HPI - General Adult General Chief complaint: Weakness Stated complaint: WEAKNESS Time Seen by Provider: 04/05/24 07:29 History of Present Illness HPI narrative: 78-year-old male presents to the emergency department for a chief complaint of difficulty with his speech. He has had this symptom for about 21 hours. He also complains of a mild headache. He has no new weakness in his arms or his legs. He reports having a stroke before, it was years ago and it affected his left arm and his left leg but the function of those extremities came back to normal with therapy. The speech issue is intermittent. Related Data Home Medications ?Medication ?Instructions ?Recorded ?Confirmed atorvastatin 80 mg tablet 80 mg PO DAILY 03/02/23 04/05/24 Previous Rx's ?Medication ?Instructions ?Recorded aspirin 81 mg tablet,delayed 81 mg PO QD #30 tabs 10/05/23 release lisinopril 10 mg tablet 5 mg (1/2 x 10 mg) PO DAILY #30 10/05/23 tabs sotalol 80 mg tablet 80 mg PO BID #60 tabs 10/05/23 Allergies Allergy/AdvReac Type Severity Reaction Status Date / Time coconut Allergy Intermediate Verified 03/02/23 01:13 Opioid HPI Opioid Management Most Recent Opioid Data: Last ORT Total Score 0 10/04/23 16:34 10/04/23 Last ORT Risk Category Low Risk 10/04/23 16:34 10/04/23 Review of Systems ROS Narrative A ten point review of systems is negative except as noted above. [facility] Medical History (Updated 04/05/24 @ 10:30 by Ari Herrera MD) History of stroke ?Z86.73 - Personal history of transient ischemic attack (TIA), and cerebral infarction without residual deficits (ICD-10) Acute metabolic encephalopathy ?G93.41 - Metabolic encephalopathy (ICD-10) Generalized weakness ?R53.1 - Weakness (ICD-10) Foot drop, bilateral ?M21.371 - Foot drop, right foot (ICD-10) ?M21.372 - Foot drop, left foot (ICD-10) Hyperlipemia ?E78.5 - Hyperlipidemia, unspecified (ICD-10) Past heart attack ?I25.2 - Old myocardial infarction (ICD-10) Hypertension ?I10 - Essential (primary) hypertension (ICD-10) CVA (cerebral vascular accident) ?I63.9 - Cerebral infarction, unspecified (ICD-10) Surgical History (Updated 10/04/23 @ 16:30 by Swathi Garner) Hx of cholecystectomy ?Z90.49 - Acquired absence of other specified parts of digestive tract (ICD- 10) History of back surgery ?Z98.890 - Other specified postprocedural states (ICD-10) Family History (Updated 10/04/23 @ 16:31 by Swathi Garner) Father Family history of COPD (chronic obstructive pulmonary disease) Mother Family history of cancer Social History (Updated 10/04/23 @ 16:33 by Swathi Garner) Within the past year, how often did you have a drink containing alcohol: monthly or less Within the past year, how many standard drinks containing alcohol did you have on a typical day: 1 or 2 Within the past year, how often did you have six or more drinks on one occasion: never Total score: 0 Score interpretation: A score less than 4 is consistent with normal alcohol consumption. Smoking status: Former smoker Non-prescribed substance use: denies use Previous occupational history: retired Highest level of school completed/degree received: GED or equivalent Are you now , , , , never or living with a partner: living with partner In a typical week, how many times do you talk on the telephone with family, friends, or neighbors: 3 or more times per week How often do you get together with friends or relatives: 3 or more times per week Do you belong to any clubs or organizations such as worship groups unions, fraternal or athletic groups, or school groups: no Little interest or pleasure in doing things: not at all Feeling down, depressed, or hopeless: not at all Feel stressed/tense/nervous/anxious/difficulty sleeping: not at all Do you think of yourself as: straight/heterosexual Gender Identity: male Exam Narrative Exam Narrative: Nurses note and vital signs reviewed and patient is not hypoxic. General: The patient appears well and in no apparent distress. Patient is resting comfortably on cart. Skin: Warm, dry, no pallor noted. There is no rash noted. Head: Normocephalic, atraumatic Eye: Normal conjunctiva, no drainage, EOMI. PERRL Ears, Nose, Mouth, and Throat: oral mucosa is moist. Nares patent. Mouth without vesicles. Ear canals patent. Tm's without Erythema Cardiovascular: Regular Rate and Rhythm Respiratory: Patient is in no distress, no accessory muscle use, lungs are clear to auscultation, no wheezing, rales or rhonchi Back: non-tender, no CVA tenderness bilaterally to percussion. GI: Normal bowel sounds, no tenderness to palpation, no masses appreciated. No rebound, guarding, or rigidity noted. Musculoskeletal: The patient has no evidence of calf tenderness, no pitting edema, symmetrical pulses noted bilaterally Neurological: A&O x4, normal speech. Occasionally he will have difficulty starting his words. We held a conversation for 3 or 4 minutes where he did not have any difficulty with his speech. Hand grasp, bicep strength, tricep strength is 5 out of 5 and symmetric. Motor strength normal in his left leg. He has some difficulty with his right leg due to back surgery years ago and he states the nerve was hit and he has dropfoot. This is not new for him. Cranial nerves II through XII are intact Psychiatric: Cooperative Constitutional Vital Signs, click to edit/add: Last Vital Signs Temp 99.5 F 04/05/24 07:25 Pulse 70 04/05/24 09:50 Resp 22 H 04/05/24 09:50 BP 164/89 H 04/05/24 07:27 Pulse Ox 89 L 04/05/24 10:24 O2 Del Method Nasal Cannula 04/05/24 10:24 Course Vital Signs Vital signs: Vital Signs Temperature 99.5 F 04/05/24 07:25 Pulse Rate 75 04/05/24 07:25 Respiratory Rate 16 04/05/24 07:25 Blood Pressure 164/89 H 04/05/24 07:25 Temperature 99.5 F 04/05/24 07:25 Pulse Rate 70 04/05/24 09:50 Respiratory Rate 22 H 04/05/24 09:50 Blood Pressure 164/89 H 04/05/24 07:27 Pulse Oximetry 89 L 04/05/24 10:24 Oxygen Delivery Method Nasal Cannula 04/05/24 10:24 Medical Decision Making MDM Narrative Medical decision making narrative: His NIH score is 1. The patient presented with expressive aphasia which is mild and intermittent. CT brain as well as CTA head and neck show no hemorrhage or significant stenosis. Case discussed with Dr. Carrasco at [facility] and the patient will be admitted here at his recommendation. Treatment diagnosis and disposition were discussed with the patient. Differential Diagnosis Differential Diagnosis: Stroke, intracranial hemorrhage Lab Data Lab results reviewed: Yes I reviewed the patient's lab results Labs: Lab Results 04/05/24 Range/Units 07:35 WBC 7.9 (4.0-11.0) 10^3/uL RBC 3.60 L (4.70-6.10) 10^6/uL Hgb 12.4 L (14.0-18.0) g/dL Hct 35.7 L (42.0-54.0) % MCV 99.2 H (80.0-94.0) fL MCH 34.4 H (25.9-34.0) pg MCHC 34.7 (29.9-35.2) g/dL RDW 13.7 (11.0-15.0) % Plt Count 170 (150-450) 10^3/uL MPV 10.2 (9.5-13.5) fL Seg Neuts % (Manual) 80.0 H (43.0-75.0) Lymphocytes % (Manual) 6.0 L (20.5-60.0) % Monocytes % (Manual) 13.0 H (1.7-12.0) % Eosinophils % (Manual) 1.0 (0.9-7.0) % Basophils % (Manual) 0.0 L (0.2-2.0) % Neutrophils # (Manual) 6.32 (1.4-6.5) 10^3/uL Lymphocytes # (Manual) 0.47 L (1.20-3.80) 10^3/uL Monocytes # (Manual) 1.02 H (0.30-0.80) 10^3/uL Eosinophils # (Manual) 0.07 (0.00-0.70) 10^3/uL Basophils # (Manual) 0.00 (0.00-0.10) 10^3/uL Poikilocytosis 1+ Ovalocytes 1+ PT 11.7 H (9.0-11.6) sec INR 1.12 APTT 29.3 (22.3-36.2) sec Sodium 137 (136-145) mmol/L Potassium 4.2 (3.5-5.1) mmol/L Chloride 100 (98-107) mmol/L Carbon Dioxide 27.6 (21.0-32.0) mmol/L Anion Gap 13.6 BUN 14.0 (7.0-18.0) mg/dL Creatinine 1.55 H (0.70-1.30) mg/dL Est GFR ( Amer) 53 L (>=60 mL/min/1.73m^2) Est GFR (Non-Af Amer) 44 L (>=60 mL/min/1.73m^2) BUN/Creatinine Ratio 9.0 Glucose 141 H (74-106) mg/dL Calcium 8.2 L (8.5-10.1) mg/dL Imaging Data CT scan - head: Radiologist's impression: ITS Impressions Brain CT 04/05/24 07:29 IMPRESSION: No acute intracranial hemorrhage. 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 Electronically authenticated by: DENNYS MOMIN Date: 04/05/2024 08:04 Chest X-Ray 04/05/24 07:30 IMPRESSION: 1. No acute cardiopulmonary process. Electronically authenticated by: RAMESH DE SANTIAGO Date: 04/05/2024 09:52 Neck CTA 04/05/24 08:07 IMPRESSION: 1. Similar approximately 50% stenosis involving the right carotid bulb. 2. Otherwise no significant stenosis, large vessel occlusion or aneurysm involving the remaining visualized neck or intracranial arterial vasculature. 3. Please note the aortic arch and aortic arch branch vessel origins were not included in the [id number]. Electronically authenticated by: EULALIO COCHRAN Date: 04/05/2024 08:54 Head CTA 04/05/24 08:28 IMPRESSION: 1. Similar approximately 50% stenosis involving the right carotid bulb. 2. Otherwise no significant stenosis, large vessel occlusion or aneurysm involving the remaining visualized neck or intracranial arterial vasculature. 3. Please note the aortic arch and aortic arch branch vessel origins were not included in the [id number]. Electronically authenticated by: EULALIO COCHRAN Date: 04/05/2024 08:54 ECG Data Attestation: I personally reviewed and interpreted this ECG as follows: (EKG on my interpretation shows sinus rhythm with a rate of 72 and no acute change) Discharge Plan Discharge Chief Complaint: Weakness Clinical Impression: Expressive aphasia Patient Disposition: Admitted as Observation Time of Disposition Decision: 10:30 Condition: Good
--- NOTE | 2024-04-05 07:30 | XR_ITS ---
The [address] [address] Patient Name: SHAHRZAD EDGAR MRN: [id number] date: 1945 Sex: M Assigned Patient Location: ER Current Patient Location: ER Accession/Order Number: [id number] Exam Date: 04/05/2024 07:39 Report Date: 04/05/2024 09:52 At the request of: HUI LOREDO Procedure: XR chest 1V EXAMINATION: XR chest 1V HISTORY: A cva , cough COMPARISON: XR chest 10/04/2023 FINDINGS: LUNGS: No significant pulmonary parenchymal abnormalities. VASCULATURE: No increased pulmonary vasculature. PLEURA: No pneumothorax, effusion, or pleural thickening. CARDIAC: No cardiomegaly or cardiac silhouette abnormality. MEDIASTINUM: No visible mass or adenopathy. BONES: No fracture or visible bone lesion. OTHER: Negative. XR/XR chest 1V IMPRESSION: 1. No acute cardiopulmonary process. Electronically authenticated by: RAMESH DE SANTIAGO Date: 04/05/2024 09:52
--- NOTE | 2024-04-05 07:30 | ECG_ITS ---
The [facility] Test Date: 2024-04-05 Pat Name: SHAHRZAD EDGAR Department: Room: - Gender: Male Rn Anesthetist: : 1945 Requested By: [id number] Order Number: [id number] Reading MD: REESE CHEUNG Measurements Intervals [place] Rate: 72 P: 64 IA: 172 QRS: 53 QRSD: 82 T: 64 QT: 436 QTc: 461 Interpretive Statements 1100 Sinus rhythm 1474 with frequent supraventricular premature complexes 8304 Long QTc interval 9150 abnormal ECG Compared to ECG 04/05/2024 07:27:28 Ventricular premature complex(es) no longer present Electronically Signed On 04-05-2024 19:44:21 EST by REESE CHEUNG
--- OUTSIDE RECORDS SUMMARY | 2024-04-05 07:32 | XMS_ITS | CCD ---
Author Organization [facility] Care Team Providers Care Technical Recruiter Name Role Phone IGORVANESSA MOHANMAKAYLALeila Attending Unavailable HOUSE, VALENTE Primary Care Unavailable Mihcelle, Valente P Unavailable Unavailable Unavailable Saurabh Goyal Unavailable Unavailable Primary Care Provider UnavailBENITA Singh Referring Unavailable CHIRRI, ALLAN Admitting Unavailable CHIRRI ALLAN Attending Unavailable SONIA MCKINNEY Consulting Unavailable CRISTIN ORTEGA Consulting Unavailable KENIA KANG Consulting Unavailab le ZOGRAFFARIBA MCGUIRE Consulting Unavailable HUAN MAYO Consulting Unavailable BLOOD, GILLES Ortega Consulting Unavailable MASDANY ISAACS I Consulting Unavailable MARKER ., DR POOL Attending Unavailable HOUSE, DR WANG Primary Care Unavailable MARKER ., DR POOL Admitting Unavailable MARKER ., DR POOL Consulting Unavailable VICENTA MARCH Consulting Unavailable VINEET, DR ANN Rendon Attending Unavailabl e MICHELLE, DR WANG Primary Care Unavailable VINEET, DR ANN Rendon Consulting Unavailabl e VINEET, DR ANN Rendon Admitting Unavailabl e SOUMYA RILEY Consulting Unavailable OBI MIDDLETON Consulting Unavailable NEFFARIBA THORPE Consulting Unavailable MICHELLE, DR WANG Primary Care Unavailable HOUSE, DR WANG Admitting Unavailable HOUSE, DR WANG Attending Unavailable HOUSE, DR WANG Consulting Unavailable HOUSE, DR WANG Primary Care Unavailable JUSTEN, DR MCDANIEL Admitting Unavailable JUSTEN, DR MCDANIEL Attending Unavailable JUSTEN, DR MCDANIEL Consulting Unavailable WEST, DR REINA Palacios Consulting Unavailable MICHELLE, DR WANG Primary Care Unavailable ZIEBER, DR RAMESH Dixon Consulting Unavailable SHAIKH Eleni CAMPOS Attending Unavailable SHAIKH Eleni CAMPOS Admitting Unavailable SOUMYA RILEY Consulting Unavailable SHAIKH Eleni CAMPOS Consulting Unavailable STRAWSER, RIC Consulting Unavailable OBI MIDDLETON Consulting Unavailable REINA GOMEZ Consulting Unavailable HOUSE, DR WANG Primary Care Unavailable OSVALDO, SOUMYA Attending Unavailable OSVALDO, SOUMYA Admitting Unavailable OSVALDO, SOUMYA Consulting Unavailable LOULOU DAVIS Consulting Unavailable VICENTA MARCH Consulting Unavailable HOUSE, DR WANG Primary Care Unavailable OSVALDO, SOUMYA Attending Unavailable OSVALDO, SOUMYA Admitting Unavailable OSVALDO, SOUMYA Consulting Unavailable OSITO CUELLO Consulting Unavailable HOUSE, DR WANG Primary Care Unavailable PAY ., DR ORLANDO Admitting Unavailable PAY ., DR ORLANDO Attending Unavailable GRANBY, DR REINA Palacios Consulting Unavailable PAY ., DR ORLANDO Consulting Unavailable GELBART, KENY Consulting Unavailable Traboulssi, Mourhaf Referring Unavailable Traboulssi, Mourhaf Attending Unavailable House, Dr. Valente Santacruz Primary Care Unava ilable Traboulssi, Mourhaf Referring Unavailable Traboulssi, Mourhaf Attending Unavailable House, Dr. Valente Santacruz Primary Care Unava ilable Espinoza, Chew Attending Unavailable House, Dr. Valente Santacruz Primary Care Unava ilable Traboulssi, Mourhaf Referring Unavailable Traboulssi, Mourhaf Attending Unavailable House, Dr. Valente Santacruz Primary Care Unava ilable Traboulssi, Mourhaf Attending Unavailable Traboulssi, Mourhaf Referring Unavailable House, Dr. Valente Santacruz Primary Care Unava ilable Espinoza, Chew Consulting Unavailable Candis Pearson Admitting Unavailable Candis Pearson Attending Unavailable HouseValente Primary Care Unavailable House Valente CARDOSO Primary Care Provider Unavailable Primary Care Provider Unavailabl e Unallocated , Noms Provider Primary Care Provi miya Veronica Liz MD Unavailable TRABOULSSI, MOURHAF Attending Unavailable TRABOULSSI, MOURHAF Referring Unavailable TRABOULSSI, MOURHAF Attending Unavailable TRABOULSSI, MOURHAF Referring Unavailable MARCIANO HI Attending Unavailable MARCIANO HI Attending Unavailable MARCIANO HI Attending Unavailable MARCIANO HI Attending Unavailable MARCIANO HI Attending Unavailable Allergies Allergy Classification Reported Allergen(s) Allergy Type Date of Onset Reaction(s) Facility (2 sources) Coconut extract Drug Allergy Unknown [facility] Other (1 source) coconut allergenic extract Drug Allergy 11-28-2021 Anaphylaxis [facility] (1 source) Coconut extract Drug Allergy 01-31-2016 [facility] Repository (4 sources) Coconut Oil OIL; Translations: [Coconut Oil OIL] Allergy to drug (finding) [facility] DO Work Phone: (1 source) Coconut extract Drug Allergy 12-13-2020 [facility] Repository (4 sources) Coconut Oil; Translations: [COCONUT OIL] Drug Allergy 01-29-[address] [facility] Medications Current Medications Medication Drug Class(es) Dates Sig (Normalized) Sig (Original) amiodarone hydrochloride 200 mg oral tablet (3 sources) Antiarrhythmic Start: 12-08-2021 End: 03-08-2022 take 1 tablet by mouth once daily amiodarone (CORDARONE) 200 MG tablet Take 1 tablet by mouth daily 90 tablet 0 12/08/2021 03/08/2022 Active Start: 12-03-2021 End: 12-08-2021 take 1 tablet by mouth twice daily amiodarone (CORDARONE) 200 MG tablet Take 1 tablet by mouth 2 times daily for 9 doses 9 tablet 0 12/03/2021 12/08/2021 Active Start: 12-03-2021 End: 12-08-2021 amiodarone (CORDARONE) table t 200 mg Aspir-81 (2 sources) Aspir-81 Active aspirin 81 mg delayed release oral tablet (19 sources) Platelet Aggregation Inhibitor, Nonsteroidal Anti-inflammatory Drug Start: 05-30-2020 End: 12-03-2021 take 81 mg by mouth once daily Aspirin Active 81 MG PO Daily May 30, 2020 1:00am Start: 05-29-2020 End: 05-30-2020 take 81 mg by mouth once daily Aspirin Discontinued 81 MG PO Daily May 29, 2020 1:00am May 30, 2020 1:41pm Start: 03-31-2019 End: 04-20-2019 take 1 tablet by mouth once daily Aspirin (Aspir-81) 81 mg Tablet,Delayed Release (Dr/Ec) Discontinued 81 MG PO Daily March 31, 2019 1:00am April 20, 2019 12:16pm atorvastatin 80 mg oral tablet (20 sources) HMG-CoA Reductase Inhibitor Start: 04-01-2019 take 1 tablet by mouth once daily atorvastatin (Lipitor) 80 mg tablet Indications: Hyperlipidemia, unspecified hyperlipidemia type TAKE 1 TABLET BY MOUTH EVERY DAY 90 tablet 3 07/06/2023 Active belladonna alkaloids 16.2 mg / opium 60 mg rectal suppository (1 source) Start: 12-02-2021 opium-belladonna (B&O SUPPRETTES) 16.2-60 MG suppository 60 mg cefdinir 300 mg oral capsule (2 sources) Cephalosporin Antibacterial Start: 12-02-2021 End: 12-07-2021 take 1 capsule by mouth every twelve hours cefdinir (OMNICEF) 300 MG capsule Take 1 capsule by mouth every 12 hours for 8 doses 8 capsule 0 12/03/2021 12/07/2021 Active 0.3 ml enoxaparin sodium 100 mg/ml prefilled syringe (1 source) Low Molecular Weight Heparin Start: 11-29-2021 enoxaparin Sodium (LOVENOX) injection 30 mg glucagon (rdna) 1 mg injection (1 source) Antihypoglycemic Agent Start: 11-28-2021 glucagon (rDNA) injection 1 mg 1000 ml glucose 100 mg/ml injection (3 sources) Start: 11-28-2021 dextrose 10 % infusion Start: 11-28-2021 dextrose bolus 10% 125 mL Start: 11-28-2021 glucose chewab le tablet 16 g hyoscyamine sulfate 0.125 mg sublingual tablet (1 source) Start: 12-01-2021 hyoscyamine (LEVSIN/SL) sublingual tablet 125 mcg ibuprofen 400 mg oral tablet (4 sources) Nonsteroidal Anti-inflammatory Drug take 1 tablet by mouth twice daily ibuprofen 400 MG tablet Take 1 tablet twice a day by oral route. Active insulin lispro 100 unt/ml injectable solution (3 sources) Insulin Analog Start: 11-28-2021 End: 12-01-2021 insulin lispro (HUMALOG) injection vial 0-16 Units labetalol hydrochloride 5 mg/ml injectable solution (1 source) beta-Adrenergic Nereyda Start: 11-28-2021 labetalol (NORMODYNE;TRANDA TE) injection 10 mg lisinopril 10 mg oral tablet (20 sources) Angiotensin Converting Enzyme Inhibitor Start: 11-04-2023 lisinopril 10 mg tablet 1 tablet (10 mg) once daily. 11/04/2023 Active Start: 12-03-2021 take 1 tablet by lavern th once daily lisinopril (PRINIVIL;ZESTRIL) 10 MG tablet Take 1 tablet by mouth daily 30 tablet 3 12/03/2021 Active Start: 11-27-2021 End: 12-03-2021 take 1 tablet by mouth once daily Lisinopril 5 MG Oral Tablet TAKE 1 TABLET DAILY. Quantity: 90 Refills: 3 Ordered: 27-Nov-2021 Veronica Liz MD Start : 27-Nov-2021 Active new dose Start: 04-01-2019 End: 01-28-2024 take 1 tablet by mouth once daily lisinopril 2.5 mg tablet Indications: Essential hypertension Take 1 tablet (2.5 mg) by mouth once daily. 90 tablet 3 08/21/2023 01/28/2024 Discontinued (Dose adjustment) loperamide hydrochloride 2 mg oral capsule (1 source) Opioid Agonist Start: 12-02-2021 loperamide (IMODIUM) capsule 2 mg metoprolol tartrate 25 mg oral tablet (5 sources) beta-Adrenergic Nereyda Start: 12-02-2021 take 1 tablet by mouth twice daily metoprolol tartrate (LOPRESSOR) 25 MG tablet Take 1 tablet by mouth 2 times daily 60 tablet 3 12/03/2021 Active Start: 12-02-2021 metoprolol (LO PRESSOR) injection 5 mg Start: 03-31-2019 End: 04-20-2019 take 75 mg by mouth twice daily Metoprolol Tartrate Discontinued 75 MG PO Twice daily March 31, 2019 4:13pm April 20, 2019 12:16pm Start: 05-13-2018 End: 03-31-2019 take 50 mg by mouth twice daily Metoprolol Tartrate Discontinued 50 MG PO Twice daily 60 May 13, 2018 1:00am March 31, 2019 4:13pm ondansetron (ZOFRAN-ODT) disintegrating tablet 4 mg (1 source) Start: 11-28-2021 ondansetron (ZOFRAN-ODT) disintegrating tablet 4 mg SITagliptin 100 mg oral tablet (8 sources) Dipeptidyl Peptidase 4 Inhibitor Start: 03-31-2019 take 1 tablet by mouth once daily Sitagliptin Phosphate (Januvia) 100 mg Tablet Active 100 MG PO Daily March 31, 2019 1:00am 5 ml sodium chloride 9 mg/ml injection (2 sources) Start: 11-28-2021 sodium chloride flush 0.9 % injection 10 mL Start: 11-28-2021 End: 12-03-2021 0.9 % sodium chloride infusi on sotalol hydrochloride 80 mg oral tablet (20 sources) Antiarrhythmic Start: 12-11-2023 take 1 tablet by mouth every twelve hours sotalol (Betapace) 80 mg tablet Take 1 tablet (80 mg) by mouth every 12 hours. 12/11/2023 Active Start: 08-21-2023 End: 01-28-2024 take 1 tablet by mouth twice daily sotalol (sotalol AF) 120 mg tablet Indications: Persistent atrial fibrillation (Multi) Take 1 tablet (120 mg) by mouth 2 times a day. 180 tablet 3 08/21/2023 01/28/2024 Discontinued (Dose adjustment) Start: 03-11-2023 take 1 tablet by lavern twice daily sotalol AF (Betapace AF) 120 MG tablet TAKE 1/2 TABLET TWICE A DAY BY MOUTH 03/11/2023 Active Start: 03-11-2023 take 1 tablet by lavern th twice daily sotalol AF 120 mg tablet Indications: Persistent atrial fibrillation (Multi) TAKE 1/2 TABLET BY MOUTH TWICE A DAY 90 tablet 1 03/11/2023 Active Start: 02-17-2022 take 1 tablet by lavern th twice daily Sotalol HCl (AF) 120 MG Oral Tablet take 1/2 tablet by mouth twice daily Quantity: 90 Refills: 1 Ordered: 06-Jun-2022 Veronica Liz MD Start : 17-Feb-2022 Active Start: 04-20-2019 End: 12-03-2021 Sotalol (Betapace) 120 mg ta blet Active 60 MG PO Twice daily April 20, 2019 1:00am take 0.5 tablet by [facility] twice daily sotalol AF 120 mg tablet Take 0.5 tablets (60 mg) by mouth 2 times a day. 0 Active take 1 tablet by lavern th every twelve hours Betapace AF 120 MG Oral Tablet Take 1/2 tablet every 12 hours Quantity: 0 Refills: 0 Ordered: 19-Nov-2021 DO Active take 0.5 tablet by m outh every twelve hours Sotalol HCl 120 MG 1/2 TABLET Orally every 12 hrs Active tamsulosin hydrochloride 0.4 mg oral capsule (2 sources) alpha-Adrenergic Nereyda Start: 12-01-2021 take 1 capsule by mouth once daily tamsulosin (FLOMAX) 0.4 MG capsule Take 1 capsule by mouth daily 30 capsule 3 12/03/2021 Active Completed/Discontinued Medications Medication Drug Class(es) Dates Sig (Normalized) Sig (Original) acetaminophen 500 mg oral tablet (3 sources) Start: 11-29-2021 End: 11-30-2021 acetaminophen (TYLENOL) tablet 1,000 mg Start: 11-28-2021 acetaminophen (TYLENOL) tablet 650 mg amoxicillin 875 mg / clavulanate 125 mg oral tablet (1 source) Penicillin-class Antibacterial Start: 11-28-2021 End: 12-02-2021 amoxicillin-clavulanate (AUGMENTIN) 875-125 MG per tablet 1 tablet apixaban 5 mg oral tablet (2 sources) Factor Xa Inhibitor Start: 05-13-2018 End: 05-30-2020 take 1 tablet by mouth twice daily Apixaban (Eliquis) 5 mg Tablet Discontinued 5 MG PO Twice daily 60 30 April 01, 2019 1:00am May 30, 2020 1:41pm 50 ml calcium gluconate 20 mg/ml injection (1 source) Start: 11-29-2021 End: 11-29-2021 calcium gluconate 1000 mg in sodium chloride 50 mL cefTRIAXone (ROCEPHIN) 1,000 mg in sterile water 10 mL IV syringe (1 source) Start: 11-28-2021 End: 11-28-2021 cefTRIAXone (ROCEPHIN) 1,000 mg in sterile water 10 mL IV syringe cephalexin 500 mg oral capsule (2 sources) Cephalosporin Antibacterial Start: 12-01-2020 take 1 capsule by mouth every eight hours Cephalexin 500 MG Oral Capsule TAKE 1 CAPSULE BY MOUTH EVERY 8 HOURS Quantity: 30 Refills: 0 Ordered: 01-Dec-2020 DO Start : 01-Dec-2020 Complete Start: 05-14-2018 End: 03-31-2019 take 500 mg by mouth twice daily Cephalexin Discontinued 500 MG PO Twice daily 09 01May 14, 2018 1:00am March 31, 2019 4:09pm clopidogrel 75 mg oral tablet (1 source) [id number] Platelet Inhibitor Start: 04-01-2019 End: 04-20-2019 take 1 tablet by mouth once daily Clopidogrel (Plavix) 75 mg tablet Discontinued 75 MG PO Daily April 01, 2019 1:00am April 20, 2019 12:16pm 1 ml dexamethasone phosphate 4 mg/ml injection (1 source) Corticosteroid Start: 11-28-2021 End: 11-28-2021 dexamethasone (DECADRON) injection 4 mg dexamethasone 1 mg/ml / tobramycin 3 mg/ml ophthalmic suspension (1 source) Aminoglycoside Antibacterial, Corticosteroid Start: 08-22-2021 take 2 drop(s) into the eye(s) four times daily Tobramycin-Dexametha sone 0.3-0.1 % Ophthalmic Suspension PLACE 2 DROPS INTO BOTH EYES 4 TIMES A DAY Quantity: 5 Refills: 0 Ordered: 22-Aug-2021 DO Start : 22-Aug-2021 Complete 1 ml diphenhydrAMINE hydrochloride 50 mg/ml cartridge (1 source) Histamine-1 Receptor Antagonist Start: 11-30-2021 End: 11-30-2021 diphenhydrAMINE (BENADRYL) injection 25 mg famotidine (PEPCID) 20 mg in sodium chloride (PF) 10 mL injection (1 source) Start: 11-28-2021 End: 11-28-2021 famotidine (PEPCID) 20 mg in sodium chloride (PF) 10 mL injection gadoteridol (PROHANCE) injection 20 mL (1 source) Start: 11-28-2021 End: 11-28-2021 gadoteridol (PROHANCE) injection 20 mL iopamidol (ISOVUE-370) 76 % injection 90 mL (1 source) Start: 11-28-2021 End: 11-28-2021 iopamidol (ISOVUE-370) 76 % injection 90 mL 5 ml levETIRAcetam 100 mg/ml injection (1 source) Start: 11-28-2021 End: 11-28-2021 levETIRAcetam (KEPPRA) injection 500 mg 100 ml magnesium sulfate 10 mg/ml injection (2 sources) Start: 11-29-2021 End: 11-29-2021 magnesium sulfate 1000 mg in dextrose 5% 100 mL IVPB Start: 11-28-2021 End: 11-28-2021 magnesium sulfate 4000 mg in 100 mL IVPB premix metFORMIN hydrochloride 500 mg oral tablet (1 source) Biguanide Start: 05-13-2018 End: 03-31-2019 take 500 mg by mouth twice daily at mealtime Metformin Discontinued 500 MG PO Twice daily with meals 60 May 13, 2018 1:00am March 31, 2019 4:09pm methylPREDNISolone 4 MG Oral Tablet Therapy Pack (1 source) Start: 08-22-2021 methylPREDNISolone 4 MG Oral Tablet Therapy Pack TAKE 6 TABLETS ON DAY 1 DIRECTED ON PACKAGE AND DECREASE BY 1 TAB EACH DAY FOR A TOTAL OF 6 DAYS Quantity: 21 Refills: 0 Ordered: 22-Aug-2021 DO Start : 22-Aug-2021 Complete 1 ml morphine sulfate 2 mg/ml cartridge (1 source) Opioid Agonist Start: 11-28-2021 End: 11-28-2021 2 mg, IntraVENous, ONCE, 1 dose, On Kimmie 11/28/21 at 0345 mupirocin 0.02 mg/mg topical ointment (1 source) RNA Synthetase Inhibitor Antibacterial Start: 12-01-2020 Mupirocin 2 % External Ointment APPLY TOPICALLY 3 TIMES DAILY Quantity: 22 Refills: 0 Ordered: 01-Dec-2020 DO Start : 01-Dec-2020 Complete niCARdipine (CARDENE) 20 mg in 0.9 % sodium chloride 200 mL solution (1 source) Start: 11-28-2021 End: 11-28-2021 niCARdipine (CARDENE) 20 mg in 0.9 % sodium chloride 200 mL solution nitroglycerin 0.4 mg sublingual tablet (5 sources) Nitrate Vasodilator Start: 12-26-2021 Nitroglycerin 0.4 MG Sublingual Tablet Sublingual DISSOLVE 1 TABLET UNDER THE TONGUE NEEDED Quantity: 25 Refills: 0 Ordered: 26-Dec-2021 DO Start : 26-Dec-2021 Active Start: 04-01-2019 End: 07-31-2020 Nitroglycerin Discontinued 0 .4 MG SUBLINGUAL Q5M 25 April 01, 2019 1:00am July 31, 2020 1:34pm ofloxacin 3 mg/ml ophthalmic solution (2 sources) Quinolone Antimicrobial Start: 11-30-2021 End: 12-04-2021 ofloxacin (OCUFLOX) 0.3 % solution 5 drop Start: 11-28-2021 End: 11-29-2021 ofloxacin (OCUFLOX) 0.3 % so lution 10 drop omeprazole 20 mg delayed release oral capsule (1 source) Proton Pump Inhibitor Start: 05-30-2020 End: 07-31-2020 take 20 mg by mouth once daily Omeprazole Discontinued 20 MG PO Daily May 30, 2020 1:00am July 31, 2020 1:34pm polysaccharide iron complex 150 mg oral capsule (1 source) Start: 04-20-2019 End: 06-12-2020 Polysaccharide Iron Complex Discontinued 150 MG PO Every 48 hours April 20, 2019 1:00am June 12, 2020 2:24pm 2 ml prochlorperazine 5 mg/ml injection (1 source) Phenothiazine Start: 11-30-2021 End: 11-30-2021 prochlorperazine (COMPAZINE) injection 10 mg sulfamethoxazole 800 mg / trimethoprim 160 mg oral tablet (1 source) Dihydrofolate Reductase Inhibitor Antibacterial, Sulfonamide Antimicrobial Start: 08-22-2021 take 1 tablet by mouth twice daily Sulfamethoxazole-Tri methoprim 800-160 MG Oral Tablet TAKE 1 TABLET BY MOUTH TWICE A DAY FOR 1 WEEK Quantity: 14 Refills: 0 Ordered: 22-Aug-2021 DO Start : 22-Aug-2021 Complete traMADol hydrochloride 50 mg oral tablet (1 source) Opioid Agonist Start: 12-01-2020 take 1 tablet by mouth every four hours as needed for pain traMADol HCl - 50 MG Oral Tablet TAKE ONE TABLET BY MOUTH EVERY 4 HOURS NEEDED FOR PAIN Quantity: 20 Refills: 0 Ordered: 01-Dec-2020 DO Start : 01-Dec-2020 Complete vancomycin (VANCOCIN) 1750 mg in sodium chloride 0.9 % 500 mL IVPB (1 source) Start: 11-28-2021 End: 11-28-2021 vancomycin (VANCOCIN) 1750 mg in sodium chloride 0.9 % 500 mL IVPB Problems Active Problems Problem Classification Problem Date Documented Date Episodic/Chronic Acquired foot deformities (2 sources) Right foot drop; Translations: [Foot drop, right foot] 01-07-2024 Episodic Acute cerebrovascular disease (15 sources) Cerebrovascular accident; Translations: [Cerebral infarction, unspecified] Onset: 11-28-2021 Chronic Acute myocardial infarction (1 source) Acute myocardial infarction of inferior wall; Translations: [ST elevation (STEMI) myocardial infarction involving other coronary artery of inferior wall] 04-17-2019 Chronic Bacterial infection; unspecified site (1 source) Bacteremia; Translations: [Bacteremia] 05-29-2020 Episodic Biliary tract disease (2 sources) Cholangiectasis; Translations: [Other specified diseases of biliary tract] 05-29-2020 Chronic Biliary tract disease (1 source) Common bile duct calculus; Translations: [Calculus of bile duct without cholangitis or cholecystitis without obstruction] 05-29-2020 Episodic Cardiac dysrhythmias (20 sources) Paroxysmal atrial fibrillation; Translations: [Cardiac arrhythmia, unspecified] Onset: 06-10-2018 Chronic Chronic obstructive pulmonary disease and bronchiectasis (5 sources) Chronic obstructive pulmonary disease, unspecified; Translations: [Chronic obstructive lung disease] Onset: 06-10-2018 Chronic Coronary atherosclerosis and other heart disease (20 sources) Single coronary vessel disease; Translations: [Coronary atherosclerosis of unspecified type of vessel, [place] or graft] Onset: 09-23-2021 06-12-2020 Chronic Coronary atherosclerosis and other heart disease (1 source) Past history of procedure; Translations: [Coronary angioplasty status] 06-12-2020 Episodic Deficiency and other anemia (1 source) Anemia due to blood loss; Translations: [Iron deficiency anemia secondary to blood loss (chronic)] 06-12-2020 Chronic Deficiency and other anemia (17 sources) Anemia; Translations: [Anemia, unspecified] Onset: 11-29-2021 Episodic Deficiency and other anemia (2 sources) Microcytic anemia; Translations: [Iron deficiency anemia, unspecified] Episodic Diabetes mellitus with complications (1 source) Polyneuropathy due to diabetes mellitus; Translations: [Diabetes 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] 03-17-2024 Chronic Diabetes mellitus without complication (5 sources) Type 2 diabetes mellitus without complication; Translations: [Type 2 diabetes mellitus without complications] Onset: 09-23-2021 Chronic Disorders of lipid metabolism (19 sources) Hyperlipidemia; Translations: [Other and unspecified hyperlipidemia] Onset: 09-23-2021 06-12-2020 Chronic E Codes: Fall (2 sources) Fall on same level, unspecified, initial encounter; Translations: [Fall on same level from slipping, tripping and stumbling with subsequent striking against other object, initial encounter] Onset: 08-27-2021 Episodic Esophageal disorders (1 source) Gastro-esophageal reflux disease without esophagitis; Translations: [GERD WITHOUT ESOPHAGITIS] Onset: 04-23-2022 Chronic Essential hypertension (20 sources) Essential hypertension; Translations: [Unspecified essential hypertension] Onset: 09-23-2021 Chronic Fluid and electrolyte disorders (2 sources) Hyponatremia; Translations: [Hypo-osmolality and hyponatremia] Onset: 11-28-2021 Episodic Headache; including migraine (4 sources) Headache; including migraine; Translations: [HEADACHE UNSPECIFIED] Onset: 08-27-2021 Immunizations and screening for infectious disease (8 sources) Patient encounter status; Translations: [Other specified vaccination] Episodic Late effects of cerebrovascular disease (5 sources) Dysphagia following cerebral infarction; Translations: [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] Onset: 12-09-2021 Chronic Mycoses (3 sources) Onychomycosis; Translations: [Tinea unguium] 01-07-2024 Episodic Nonspecific chest pain (7 sources) Chest pain, unspecified; Translations: [Chest pain] Onset: 09-25-2021 Episodic Osteoarthritis (1 source) Unspecified osteoarthritis, unspecified site; Translations: [UNSPECIFIED OSTEOARTHRITIS UNS SITE] Onset: 04-23-2022 Chronic Other aftercare (8 sources) Drug therapy finding; Translations: [Long-term (current) use of other medications] Episodic Other aftercare (1 source) 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; Translations: [CARE HOME CURRENT USE OF ASPIRIN] Onset: 04-23-2022 Episodic Other aftercare (5 sources) Taking high risk medication; Translations: [Other penitentiary (current) drug therapy] Onset: 01-29-2023 01-29-2023 Episodic Other circulatory disease (1 source) Personal history of transient ischemic attack (TIA), and cerebral infarction without residual deficits; Translations: [PERS HX TIA AND CI NO RESID DEFICIT] Onset: 04-23-2022 Episodic Other hematologic conditions (1 source) Other specified abnormalities of plasma proteins; Translations: [OTH SPEC ABNORM PLASMA PROTEINS] Onset: 04-23-2022 Episodic Other injuries and conditions due to external causes (1 source) Unspecified injury of head, initial encounter; Translations: [UNSPECIFIED INJURY HEAD INITIAL ENC] Onset: 04-23-2022 Episodic Other lower respiratory disease (1 source) Shortness of breath Onset: 06-10-2018 Episodic Other nutritional; endocrine; and metabolic disorders (1 source) Morbid (severe) obesity due to excess calories; Translations: [MORBID SEVERE OBES D/T EXCESS DELVIN] Onset: 08-27-2021 Chronic Other nutritional; endocrine; and metabolic disorders (1 source) Body mass index (BMI) 30.0-30.9, adult; Translations: [BODY MASS INDEX BMI 30.0-30.9 ADULT] Onset: 08-27-2021 Chronic Other nutritional; endocrine; and metabolic disorders (14 sources) Overweight in adulthood with body mass index of 25 or more but less than 30; Translations: [Overweight] Onset: 01-29-2023 01-29-2023 Episodic Other nutritional; endocrine; and metabolic disorders (2 sources) Body mass index (BMI) 27.0-27.9, adult; Translations: [Body mass index (BMI) 27.0-27.9, adult] Onset: 01-28-2024 Episodic Other screening for suspected conditions (not mental disorders or infectious disease) (2 sources) Hormone level - finding; Translations: [Other specified abnormal findings of blood chemistry] 05-29-2020 Episodic Other skin disorders (2 sources) Asteatosis cutis; Translations: [Xerosis cutis] 01-07-2024 Episodic Otitis media and related conditions (2 sources) Otitis media; Translations: [Unspecified nonsuppurative otitis media, left ear] Onset: 11-28-2021 Episodic Peripheral and visceral atherosclerosis (2 sources) Peripheral vascular disease, unspecified; Translations: [Peripheral vascular disease] Onset: 04-23-2022 03-31-2019 Chronic Residual codes; unclassified (1 source) Acquired absence of other specified parts of digestive tract; Translations: [ACQ ABSENCE OTH PART DIGESTV TRACT] Onset: 04-23-2022 Episodic Substance-related disorders (2 sources) Nicotine dependence, unspecified, uncomplicated; Translations: [Tobacco user] Onset: 06-10-2018 05-29-2020 Chronic Syncope (2 sources) Syncope and collapse; Translations: [Syncope] Onset: 04-23-2022 06-12-2020 Episodic Transient cerebral ischemia (5 sources) Transient cerebral ischemic attack, unspecified; Translations: [TRANS CERBRAL ISCHEMIC ATTACK UNS] Onset: 04-20-2022 Chronic Unclassified (1 source) nursing home (current) use of oral hypoglycemic drugs Onset: 06-10-2018 Unclassified (1 source) CONTACT W/AND (SUSP) EXPOS COVID-19; Translations: [CONTACT W/AND (SUSP) EXPOS COVID-19] Onset: 04-23-2022 Unclassified (1 source) R07.9 - Chest pain, unspecified; Translations: [R07.9 - Chest pain, unspecified] Onset: 09-23-2021 Unclassified (4 sources) Other persistent atrial fibrillation; Translations: [Other persistent atrial fibrillation] Onset: 01-29-2023 Past or Other Problems Problem Classification Problem Date Documented Date Episodic/Chronic Acute bronchitis (1 source) Acute bronchiolitis, unspecified; Translations: [ACUTE BRONCHIOLITIS UNSPECIFIED] Onset: 08-23-2021 Episodic Deficiency and other anemia (6 sources) Anemia, unspecified; Translations: [ANEMIA UNSPECIFIED] Onset: 05-14-2022 Episodic Fracture of upper limb (2 sources) Displaced fracture of proximal phalanx of left little finger, subsequent encounter for fracture with routine healing; Translations: [Displaced fracture of proximal phalanx of left little finger, initial encounter for closed fracture] Onset: 08-29-2021 Resolved: 09-17-2021 Episodic Inflammation; infection of eye (except that caused by tuberculosis or sexually transmitteddisease) (1 source) Unspecified conjunctivitis; Translations: [UNSPECIFIED CONJUNCTIVITIS] Onset: 08-23-2021 Episodic Open wounds of head; neck; and trunk (4 sources) Laceration without foreign body of left eyelid and periocular area, initial encounter; Translations: [LAC NO FB LT EYELID PERIOCULAR INIT] Onset: 08-26-2021 Episodic Other aftercare (3 sources) 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; Translations: [OTH CARE HOME CURRENT DRUG THERAPY] Onset: 04-23-2022 Episodic Other aftercare (1 source) 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; Translations: [CARE HOME USE ORAL HYPOGLYCEMIC DX] Onset: 12-09-2021 Episodic Other connective tissue disease (2 sources) Pain in left hand Onset: 08-29-2021 Resolved: 09-17-2021 Episodic Other injuries and conditions due to external causes (1 source) Unspecified foreign body in respiratory tract, part unspecified causing other injury, initial encounter; Translations: [UNS FB RESP TRACT UNS OTH INJ INIT] Onset: 12-09-2021 Episodic Other injuries and conditions due to external causes (1 source) Other specified injuries of head, initial encounter; Translations: [OTH SPEC INJURIES HEAD INITIAL ENC] Onset: 08-27-2021 Episodic Other lower respiratory disease (1 source) Shortness of breath; Translations: [SHORTNESS OF BREATH] Onset: 12-09-2021 Episodic Other nutritional; endocrine; and metabolic disorders (2 sources) Body mass index (BMI) 28.0-28.9, adult; Translations: [Body mass index (BMI) 28.0-28.9, adult] Onset: 01-29-2023 Episodic Other upper respiratory disease (3 sources) Nasal congestion; Translations: [NASAL CONGESTION] Onset: 08-22-2021 Episodic Other upper respiratory infections (1 source) Acute pharyngitis, unspecified; Translations: [ACUTE PHARYNGITIS UNSPECIFIED] Onset: 08-23-2021 Episodic Screening and history of mental health and substance abuse codes (15 sources) Ex-smoker; Translations: [Personal history of tobacco use] Onset: 04-23-2022 07-30-2023 Episodic Comment on above: QUIT MAR 2019; Unclassified (3 sources) Onset: 01-29-2023 Resolved: 01-28-2024 01-29-2023 Results Test Name Value Interpretation Reference Range Facility ECG 12 [place] 01-28-2024 Normal sinus rhythm with a QTc interval of 495 ms [facility] Work Phone: ECG 12 [place] 07-30-2023 Atrial fibrillation with nonspecific ST-T changes [facility] Work Phone: ECG 12 [place] 01-29-2023 Normal sinus rhythm with a QTc interval of 481 ms [facility] Work Phone: Tobacco Screening.on 023 Adult depression screening assessment No [facility] [employer] Work Phone: Fall risk assessment b) One or more fall s in the last year [facility] [employer] [place] Work Phone: Tobacco use status [facility] b) No [facility] [employer] Work Phone: Office Visit (Cardiology)on 06-06-2022 Follow-up visit Diagnoses/Problems Assessed Persistent atrial fibrillation (427.31) (I48.19) 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) (I25.10) Hyperlipidemia (272.4) (E78.5) Essential hypertension (401.9) (I10) Anemia (285.9) (D64.9) High risk medication use (V58.69) (Z79.899) Former smoker (V15.82) (Z87.891) QUIT MAR 2019 Overweight with body mass index (BMI) of 27 to 27.9 in adult (278.02,V85.23) (E66.3,Z68.27) Orders Overweight with body mass index (BMI) of 27 to 27.9 in adult Healthy Weight Tips; Status:Complete - Retrospective Authorization; Done: 06Jun2022 Some eating tips that can help you lose weight.; Status:Complete - Retrospective Authorization; Done: 06Jun2022 Persistent atrial fibrillation Renew: Sotalol HCl (AF) 120 MG Oral Tablet; take 1/2 tablet by mouth twice daily SocHx: Former smoker Tobacco Use Screening; Status:Complete; Done: 06Jun2022 Patient Instructions Please bring all medicines, vitamins, and herbal supplements with you when you come to the office. Prescriptions will not be filled unless you are compliant with your follow up appointments or have a follow up appointment scheduled as per instruction of your physician. Refills should be requested at the time of your visit. Discussed the Watchman procedure Follow up in 2 months Chief Complaint SHAHRZAD EDGAR is being seen for OV Per MT. History of Present Illness Yesterday OV note. Patient showed up in the office following recent hospitalization. He did not bring his medication with him. It turns out that the patient had been out of his sotalol for several days. Apparently no changes were made in his medication following his recent stroke. Detail of his recent hospitalization is unclear Assessment 1. Status post prior presentation with inferior wall myocardial infarction. Status post thrombectomy and balloon angioplasty to a small PLV branch. back in 2019. Patient describe functional class I. He had previous hospital admission for atypical chest pain work-up was benign cardiac balderas 2. Persistent atrial fibrillation appears now back in A-fib with RVR. He had a history of intolerance to Eliquis due to GI bleed. He was recently in the hospital for stroke. Apparently he had ran out of his sotalol for several days 3. High-risk medication in form of sotalol 4. Obesity with another weight gain 5. Hypertension 6. Hyperlipidemia 7. Anemia was seen by hematology in the past 8. Reformed smoker 9. Stroke detail is lacking Plan 1. Advised the patient to resume his sotalol we will bring him back in 6 to 8 weeks to assess his rhythm 2. He was counseled regarding losing weight, exercise and dietary modification 3. Discussed with him anticoagulation and Watchman device he refused both I advised him that he had very high risk for recurrence of his stroke he understand 4. We will try to retrieve retrieve his record from [place] Surgical History Problems History of Back surgery History of Cataract surgery History of Colonoscopy History of Elbow surgery History of Gallbladder surgery History of Tonsillectomy History of Vasectomy Current Meds Medication NameInstruction Aspirin EC 81 MG Oral Tablet Delayed ReleaseTAKE 1 TABLET DAILY. Atorvastatin Calcium 80 MG Oral TabletTAKE 1 TABLET DAILY. Lisinopril 2.5 MG Oral TabletTAKE 1 TABLET DAILY. Nitroglycerin 0.4 MG Sublingual Tablet SublingualDISSOLVE 1 TABLET UNDER THE TONGUE NEEDED Sotalol HCl (AF) 120 MG Oral Tablettake 1/2 tablet by mouth twice daily Allergies Medication Coconut Oil OIL Adverse Reaction; Recorded By: Kristin Mcmanus; 06/05/2022 1:12:09 PM Social History Problems Caffeine use (V49.89) (Z78.9) 2 CUPS OF COFFEE DAILY Consumes alcohol (V49.89) (Z78.9) 1 BEER OCCASIONALLY Former smoker (V15.82) (Z87.891) QUIT MAR 2019 No illicit drug use Review of Systems Constitutional: not feeling tired. Cardiovascular: no intermittent leg claudication and as noted in HPI. Respiratory: no cough and no shortness of breath. Gastrointestinal: no change in bowel habits and no blood in stools. Integumentary: no skin rashes. Neurological: no seizures and no frequent falls. All other systems have been reviewed and are negative for complaint. Vitals Vital Signs Recorded: 06Jun2022 09:22AM Heart Rate80, L Radial Xckqeexy225, LUE, Sitting Tvtoxqlst45, LUE, Sitting Height6 ft 1 in Jwtjce677 lb BMI Bgirefjiul50.84 kg/m2 BSA Calculated2.2 Tobacco Useb) No Falls Screening (Age 18+)a) No falls within the last year Physical Exam Constitutional: alert and in no acute distress. Neck: neck is supple, symmetric, trachea midline, no masses and no thyromegaly . Pulmonary: no increased work of breathing or signs of respiratory distress and lungs clear to auscultation. Cardiovascular: carotid pulses 2+ bilaterally with no bruit , JVP was normal, no thrills , regular rhythm, normal S1 and S2, no murmurs the rhythm was irregularly irregular, p (more content not included)... 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) (I25.10) High risk medication use (V58.69) (Z79.899) Hyperlipidemia (272.4) (E78.5) Essential hypertension (401.9) (I10) Former smoker (V15.82) (Z87.891) QUIT MAR 2019 Anemia (285.9) (D64.9) Overweight with body mass index (BMI) of 27 to 27.9 in adult (278.02,V85.23) (E66.3,Z68.27) Orders Overweight with body mass index (BMI) of 27 to 27.9 in adult Healthy Weight Tips; Status:Complete - Retrospective Authorization; Done: 05Jun2022 Some eating tips that can help you lose weight.; Status:Complete - Retrospective Authorization; Done: 05Jun2022 Persistent atrial fibrillation IO EKG Electrocardiogram- 12 Lead; Status:Complete; Done: 05Jun2022 SocHx: Former smoker Tobacco Use Screening; Status:Complete; Done: [id number] Patient Instructions Please bring all medicines, vitamins, and herbal supplements with you when you come to the office. Prescriptions will not be filled unless you are compliant with your follow up appointments or have a follow up appointment scheduled as per instruction of your physician. Refills should be requested at the time of your visit. Fall prevention education given [employer] discuss with patient Patient to call with correct medication list Retrieve records from [place] Will come back tomorrow with medication bottles The provider reviewed the following test(s) and result(s) with the patient: ECG Chief Complaint SHAHRZAD EDGAR is being seen for a 6 month follow-up of. History of Present Illness Patient is here for follow-up and continue management for history of inferior wall myocardial infarction and PCI to the PLV branch, persistent atrial fibrillation, obesity, hypertension and hyperlipidemia. Unfortunately he did not tolerate Eliquis and this was discontinued. Patient did not bring his medication with him. He reports he was in the hospital in [place] in [place] after a stroke. He does not know if any of his medication has been changed. On examination he is in atrial fibrillation with slightly elevated heart rate. Unfortunately we could not confirm his medication. Unfortunately he does not remember what happened and he cannot give me any detail. Assessment 1. Status post prior presentation with inferior wall myocardial infarction. Status post thrombectomy and balloon angioplasty to a small PLV branch. back in 2019. Patient describe functional class I. He had previous hospital admission for atypical chest pain work-up was benign cardiac balderas 2. Persistent atrial fibrillation appears now back in A-fib with RVR. He had a history of intolerance to Eliquis due to GI bleed. He was recently in the hospital for stroke detail is lacking unclear if any of the medication has been changed 3. High-risk medication in form of sotalol this seems to ineffective at current dose to maintain sinus rhythm ll 4. Obesity with another weight gain 5. Hypertension 6. Hyperlipidemia 7. Anemia was seen by hematology in the past 8. Reformed smoker 9. Stroke detail is lacking Plan 1. Clinically we cannot adjust any of his medication considering we do not have an accurate list of his medication and were missing some clinical data from his recent hospitalization. Clearly the patient is very high risk for recurrent stroke unless anticoagulation and/or a Watchman device is considered. The patient adamant about not being on anticoagulation 2. He was counseled regarding losing weight, exercise and dietary modification 3. Current was advised to come back to the office tomorrow bring his medication to give him appropriate recommendation to address his elevated heart rate, atrial fibrillation and risk of embolic event 4. I to retrieve his record from [place] 5. I advised the patient TO bring his medication with him and tried to write things down concerning his memory does not appears to be good and he has no good social support system Surgical History Problems History of Back surgery History of Cataract surgery History of Colonoscopy History of Elbow surgery History of Gallbladder surgery History of Tonsillectomy History of Vasectomy Current Meds Medication NameInstruction Aspirin EC 81 MG Oral Tablet Delayed ReleaseTAKE 1 TABLET DAILY. Atorvastatin Calcium 80 MG Oral TabletTAKE 1 TABLET DAILY. Lisinopril 5 MG Oral TabletTAKE 1 TABLET DAILY. Nitroglycerin 0.4 MG Sublingual Tablet SublingualDISSOLVE 1 TABLET UNDER THE TONGUE NEEDED Sotalol HCl (AF) 120 MG Oral Tablettake 1/2 tablet by mouth twice daily Patient did not bring medication list or bottles. Updated verbally with patient Allergies Medication Coconut Oil OIL Adverse Reaction; Recorded By: Kristin Mcmanus; 06/05/2022 1:12:09 PM Social History Problems Caffeine use (V49.89) (Z78.9) 2 CUPS OF COFFEE DAILY Consumes alcohol (V49.89) (Z78.9) 1 BEER OCCASIONALLY Former smoker (V15.82 (more content not included)... Normal [employer] Tobacco Screening.on 023 Adult depression screening assessment No [facility] [employer] 250 DO Work Phone: Fall risk assessment b) One or more fall s in the last year [facility] [employer] 250 DO Work Phone: Tobacco use status [facility] b) No [facility] [employer] 250 DO Work Phone: CBC AUTO DIFFon 05-14-2022 BASO # 0.0 103/ul Normal 0.0-0.1 [facility] Comment on above: Performed By: #### C BC ####[facility] [address] [place], [place] [address]Dr. Sea Pugh Basophils/100 WBC (Bld) 0.5 % Normal 0.2-2.0 [facility] Comment on above: Performed By: #### C BC ####[facility] [address] [place], [place] [address]Dr. eSa Pugh EO # 0.4 103/ul Normal 0.0-0.7 [facility] Comment on above: Performed By: #### C BC ####[facility] [address] [place], [place] [address]Dr. Shondapreston Keaton Eosinophils/100 WBC (Bld) 4.7 % Normal 0.9-7.0 [facility] Comment on above: Performed By: #### C BC ####[facility] [address] [place], [place] [address]Dr. Sea Pugh Erythrocyte distribution width (RBC) [Ratio] 13.7 % Normal 11.0-15.0 [facility] Comment on above: Performed By: #### C BC ####[facility] [address] [place], [place] [address]Dr. Sea Pugh Hematocrit (Bld) [Volume fraction] 40.5 % Critically low 42.0-54.0 [facility] Comment on above: Performed By: #### C BC ####[facility] [address] [place], [place] [address]Dr. Sea Pugh Hemoglobin (Bld) [Mass/Vol] 13.5 g/dL Critically low 14.0-18.0 [facility] Comment on above: Performed By: #### C BC ####[facility] [address] [place], [place] [address]Dr. Sea Pugh IG # 0.03 10e3/ul Normal 0.00-0.03 [facility] Comment on above: Performed By: #### C BC ####[facility] [address] [place] [address]Dr. Sea Pugh IG % 0.4 % Normal 0.0-0.5 [facility] Comment on above: Performed By: #### C BC ####[facility] [address] [place] [address]Dr. Sea Pugh LYMPH # 2.0 103/ul Normal 1.2-3.8 [facility] Comment on above: Performed By: #### C BC ####[facility] [address] [place], [place] [address]DrMook Pugh Lymphocytes/100 WBC (Bld) 25.4 % Normal 20.5-60.0 [facility] Comment on above: Performed By: #### C BC ####[facility] [address] [place], [place] [address]Dr. Sea Pugh MANUAL DIFF REQ NO Normal [facility] Comment on above: Performed By: #### C BC ####[facility] [address] [place] [address]Dr. Shondapreston Pugh MCH (RBC) [Entitic mass] 29.6 pg Normal 25.9-34.0 [facility] Comment on above: Performed By: #### C BC ####[facility] [address] [place], [place] [address]Dr. Sea Keaton MCHC (RBC) [Mass/Vol] 33.3 g/dL Normal 29.9-35.2 [facility] Comment on above: Performed By: #### C BC ####[facility] [address] [place], [place] [address]DrMook Pugh MCV (RBC) [Entitic vol] 88.8 fL Normal 80.0-94.0 [facility] Comment on above: Performed By: #### C BC ####[facility] [address] [place], [place] [address]DrMook Pugh MONO # 0.8 103/ul Normal 0.3-0.8 [facility] Comment on above: Performed By: #### C BC ####[facility] [address] [place], [place] [address]Dr. Sea Pugh Monocytes/100 WBC (Bld) 10.4 % Normal 1.7-12.0 [facility] Comment on above: Performed By: #### C BC ####[facility] [address] [place] [address]Dr. Sea Pugh NEUT # 4.6 103/ul Normal 1.4-6.5 [facility] Comment on above: Performed By: #### C BC ####[facility] [address] [place] [address]Dr. Sea Pugh Neutrophils/100 WBC (Bld) 58.6 % Normal 43.0-75.0 [facility] Comment on above: Performed By: #### C BC ####[facility] [address] [place] [address]Dr. Sea Pugh Platelet mean volume (Bld) [Entitic vol] 9.8 fL Normal 9.5-13.5 [facility] Comment on above: Performed By: #### C BC ####[facility] [address] [place] [address]Dr. Sea Pugh PLT 243 103/ul Normal 150-450 [facility] Comment on above: Performed By: #### C BC ####[facility] [address] [place] [address]Dr. Sea Pugh RBC 4.56 106/ul Critically low 4.70-6.10 [facility] Comment on above: Performed By: #### C BC ####[facility] [address] [place] [address]Dr. Sea Pugh WBC 7.8 103/ul Normal 4.0-11.0 [facility] Comment on above: Performed By: #### C BC ####[facility] [address] [place] [address]Dr. Sae Pugh CBC AUTO DIFFon 04-21-2022 BASO # 0.1 103/ul Normal 0.0-0.1 [facility] Comment on above: Performed By: #### H STROPN, CMP, CRP #### [facility] [address] [place] [address] [address] Sea Pugh Basophils/100 WBC (Bld) 0.7 % Normal 0.2-2.0 [facility] Comment on above: Performed By: #### H STROPN, CMP, CRP #### [facility] [address] [place] [address] Dr. Sea Pugh EO # 0.3 103/ul Normal 0.0-0.7 [facility] Comment on above: Performed By: #### H STROPN, CMP, CRP #### [facility] [address] [place] [address] Dr. Sea Pugh Eosinophils/100 WBC (Bld) 4.9 % Normal 0.9-7.0 [facility] Comment on above: Performed By: #### H STROPN, CMP, CRP #### [facility] [address] [place] [address] Dr. Sea Pugh Erythrocyte distribution width (RBC) [Ratio] 14.0 % Normal 11.0-15.0 [facility] Comment on above: Performed By: #### H STROPN, CMP, CRP #### [facility] [address] [place] [address] Dr. Sea Pugh Hematocrit (Bld) [Volume fraction] 38.5 % Critically low 42.0-54.0 [facility] Comment on above: Performed By: #### H STROPN, CMP, CRP #### [facility] [address] [place] [address] Dr. Sea Pugh Hemoglobin (Bld) [Mass/Vol] 13.3 g/dL Critically low 14.0-18.0 [facility] Comment on above: Performed By: #### H STROPN, CMP, CRP #### [facility] [address] [place] [address] Dr. Sea Pugh IG # 0.02 10e3/ul Normal 0.00-0.03 [facility] Comment on above: Performed By: #### H STROPN, CMP, CRP #### [facility] [address] [place] [address] Dr. Sea Pugh IG % 0.3 % Normal 0.0-0.5 [facility] Comment on above: Performed By: #### H STROPN, CMP, CRP #### [facility] [address] [place] [address] Dr. Sea Pugh LYMPH # 1.5 103/ul Normal 1.2-3.8 [facility] Comment on above: Performed By: #### H STROPN, CMP, CRP #### [facility] [address] [place] [address] Dr. Sea Pugh Lymphocytes/100 WBC (Bld) 22.7 % Normal 20.5-60.0 [facility] Comment on above: Performed By: #### H STROPN, CMP, CRP #### [facility] [address] [place] [address] Dr. Sea Pugh MANUAL DIFF REQ NO Normal [facility] Comment on above: Performed By: #### H STROPN, CMP, CRP #### [facility] [address] [place] [address] Dr. Sea Pugh MCH (RBC) [Entitic mass] 29.4 pg Normal 25.9-34.0 [facility] Comment on above: Performed By: #### H STROPN, CMP, CRP #### [facility] [address] [place] [address] Dr. Sea Pugh MCHC (RBC) [Mass/Vol] 34.5 g/dL Normal 29.9-35.2 [facility] Comment on above: Performed By: #### H STROPN, CMP, CRP #### [facility] [address] [place] [address] Dr. Sea Pugh MCV (RBC) [Entitic vol] 85.0 fL Normal 80.0-94.0 [facility] Comment on above: Performed By: #### H STROPN, CMP, CRP #### [facility] [address] [place] [address] Dr. Sea Pugh MONO # 0.7 103/ul Normal 0.3-0.8 [facility] Comment on above: Performed By: #### H STROPN, CMP, CRP #### [facility] [address] [place], [place] [id number] Dr. Sea Pugh Monocytes/100 WBC (Bld) 10.2 % Normal 1.7-12.0 [facility] Comment on above: Performed By: #### H STROPN, CMP, CRP #### [facility] [address] [address] [address] Sea Pugh NEUT # 4.1 103/ul Normal 1.4-6.5 [facility] Comment on above: Performed By: #### H STROPN, CMP, CRP #### [facility] [address] [place] [address] Dr. Sea Pugh Neutrophils/100 WBC (Bld) 61.2 % Normal 43.0-75.0 [facility] Comment on above: Performed By: #### H STROPN, CMP, CRP #### [facility] [address] [place] [address] Dr. Sea Pugh Platelet mean volume (Bld) [Entitic vol] 9.1 fL Critically low 9.5-13.5 [facility] Comment on above: Performed By: #### H STROPN, CMP, CRP #### [facility] [address] [place] [address] Dr. Sea Pugh PLT 216 103/ul Normal 150-450 [facility] Comment on above: Performed By: #### H STROPN, CMP, CRP #### [facility] [address] [place] [address] Dr. Sea Pugh RBC 4.53 106/ul Critically low 4.70-6.10 [facility] Comment on above: Performed By: #### H STROPN, CMP, CRP #### [facility] [address] [place] [address] Dr. Sea Pugh WBC 6.8 103/ul Normal 4.0-11.0 [facility] Comment on above: Performed By: #### H STROPN, CMP, CRP #### [facility] [address] [place] [address] Dr. Sea Pugh ECHOCARDIO M/2D COMPLETEon 0 04-21-2022 ECHOCARDIO M/2D COMPLETE Patient: SHAHRZAD EDGAR. Exam Date: 04/21/2022 : 1945 Gender:M Ordering : SHAIKH Marya CAMPOS . Admission #: [id number] Family : Order #: [id number] CLICK HERE TO VIEW EXAM ECHOCARDIOGRAM REPORT PROCEDURE: CARDIO PULMONARY ECHOCARDIO M/2D COMP INDICATIONS: Elevated troponin, TIA, HX:AK COMPARISON: None. DESCRIPTION: COMPLETE ECHOCARDIOGRAM Real-time transthoracic echocardiography with 2D, M-mode, spectral and color flow Doppler performed. QUALITY: Technical quality was good. LEFT VENTRICLE: Normal chamber size. Thickened septal wall. LV EF: Global left ventricular systolic function is hyperdynamic; visually estimated ejection fraction 65 to 70%. No significant wall motion abnormalities. DIASTOLIC: Normal diastolic function. ATRIAL SEPTUM: Inadequately seen. LEFT ATRIUM: Normal chamber size. RIGHT ATRIUM: Normal chamber size. RIGHT VENTRICLE: Normal chamber size. Normal right ventricular systolic function. Right ventricular hypertrophy seen. TRICUSPID VALVE: Normal mobility and thickness. No stenosis with trivial regurgitation. No evidence of pulmonary hypertension. RVSP 22mmHg MITRAL VALVE: Normal mobility and thickness. No mitral valve prolapse. No evidence of mitral valve stenosis. There is no mitral annular calcification. Trivial mitral regurgitation. AORTIC VALVE: Normal trileaflet appearance. Mildly calcified aortic valve. Normal leaflet mobility. No evidence of aortic valve stenosis. Trivial aortic regurgitation. AORTIC ROOT: Normal diameter and appearance. PULMONIC VALVE: Normal thickness and mobility. No stenosis. Trivial regurgitation. PERICARDIUM: Trivial pericardial effusion. CONCLUSION: Global left ventricular systolic function is hyperdynamic; visually estimated ejection fraction 65 to 70%. No wall motion abnormalities. Normal diastolic function. The right ventricle is normal in size and systolic function. No significant valvular abnormalities. Trivial pericardial effusion. Adult Echocardiography Procedure Report Left Ventricle LVEDD (3.7 - 5.6 cm): 4.25 cm LVESD (2.2 - 4.0 cm): 2.83 cm LVIVS thickness (0.6 - 1.2 cm): 1.29 cm LVPW thickness (0.5 - 1.0 cm): 1.01 cm e': 0.06 m/s E - e': 13.16 LVOT Max Gradient: 4.26 mm[Hg] Peak Velocity (LVOT): 1.03 m/s Mean Velocity (LVOT): 0.64 m/s LVOT Diameter 2.04 cm Left Atrium LA Volume Index (2D A2C): 58.91 ml, 58.91 ml Left Atrium Systolic Dimension: 3.44 cm Mitral Valve MV E to A Ratio: 0.84 Mitral Valve A-Wave Peak Velocity: 0.98 m/s Mitral Valve E-Wave Peak Velocity: 0.83 m/s Right Ventricle RV Internal Diastolic Dimension: 3.34 cm Aorta AO Root Diam: 3.75 cm Ascending Ao Diam: 3.13 cm Aortic Valve AoV Area (Peak Maldonado): 2.44 cm2, 2.44 cm2 AoV Area (VTI): 2.37 cm2, 2.37 cm2 Peak Velocity(Antegrade Flow): 1.38 m/s Peak Gradient(Antegrade Flow): 7.59 mm[Hg] Mean Velocity(Antegrade Flow): 0.95 m/s Mean Gradient(Antegrade Flow): 3.96 mm[Hg] Velocity Time Integral: 28.18 cm Tricuspid Valve Peak Velocity (Regurgitant Flow): 2.04 m/s, 2.61 m/s, 2.23 m/s Peak Velocity: 0.63 m/s Pulmonic Valve Peak Velocity: 0.99 m/s, 1.01 m/s Peak Gradient: 3.88 mm[Hg], 4.10 mm[Hg] Right Atrium Right Atrium Systolic Pressure: 42.89 ml, 42.89 ml Dictated by: Florinda Chan M.D. on 04/21/2022 at 14:55 Approved by: Florinda Chan M.D. on 04/21/2022 at 14:57 Normal [facility] MRI BRAIN WO CONon 3 MRI BRAIN WO CON EXAMINATION: MRI BRAIN WO CON, 04/20/2022 6:59 AM EST HISTORY: Ischemic stroke ; acute left-sided weakness COMPARISON: None. TECHNIQUE: MRI of the brain was performed without IV contrast. FINDINGS: CEREBRUM: Increased T2 signal within the subcortical white matter of the posterior right temporal lobe extending into the posterior parietal lobe. CEREBELLUM: No edema, visible mass, or inappropriate atrophy. CSF SPACES: Ventricles, cisterns, and sulci are appropriate for age. No hydrocephalus, subarachnoid hemorrhage, or mass. IMPRESSION: 1. Very limited examination. Only the first portion of axial diffusion-weighted imaging was performed prior to patient discontinuing examination due to claustrophobia. 2. Increased T2 signal involving the posterior right temporal and posterior parietal lobes; sequela of remote infarction versus edema versus chronic changes. No appreciable mass effect on the soft tissue or sulci. Electronically authenticated by: RAMESH DE SANTIAGO Date: 2022-04-21 14:41 Normal [facility] POINT OF CARE GLUCOSEon 03-25 Glucose [Mass/Vol] 180 mg/dL Critically high 74-106 [facility] Comment on above: Performed By: #### P OCGLUC ####[facility] [address] [place], [place] [address]PvDr. Sea Pugh PROF CHEM 8 (BAS METB)on Anion gap [Moles/Vol] 13.5 mmol/L Normal [facility] Comment on above: Performed By: #### D DIM #### [facility] [address] [address] [address] Sea Pugh Calcium [Mass/Vol] 8.7 mg/dL Normal 8.5-10.1 [facility] Comment on above: Performed By: #### D DIM #### [facility] [address] [address] [address] Sea Pugh Chloride [Moles/Vol] 100 mmol/L Normal 98-107 [facility] Comment on above: Performed By: #### D DIM #### [facility] [address] [address] [address] Sea Pugh CO2 [Moles/Vol] 27.2 mmol/L Normal 21.0-32.0 [facility] Comment on above: Performed By: #### D DIM #### [facility] [address] [address] [address] Sea Pugh Creatinine [Mass/Vol] 1.27 mg/dL Normal 0.70-1.30 [facility] Comment on above: Performed By: #### D DIM #### [facility] [address] [address] [address] Sea Pugh EGFR-AF [place]TH [place]OREAN >60 Normal >=60 [facility] Comment on above: Performed By: #### D DIM #### [facility] [address] [address] [address] Sea Pugh EGFR-NON AF [place] 55 mL/min/1.73m2 Critically low >=60 [facility] Comment on above: Performed By: #### D DIM #### [facility] [address] [address] [address] Sea Pugh Glucose [Mass/Vol] 134 mg/dL Critically high 74-106 [facility] Comment on above: Performed By: #### D DIM #### [facility] [address] [address] [address] Sea Pugh Potassium [Moles/Vol] 3.7 mmol/L Normal 3.5-5.1 [facility] Comment on above: Performed By: #### D DIM #### [facility] [address] [address] [address] Sea Pugh Sodium [Moles/Vol] 137 mmol/L Normal 136-145 [facility] Comment on above: Performed By: #### D DIM #### [facility] [address] [address] [address] Sea Pugh Urea nitrogen [Mass/Vol] 14.0 mg/dL Normal 7.0-18.0 [facility] Comment on above: Performed By: #### D DIM #### [facility] [address] [address] [address] Sea Pugh Urea nitrogen/Creatinine [Mass ratio] 11.0 mg/mg Normal [facility] Comment on above: Performed By: #### D DIM #### [facility] [address] [address] [address] Sea Pugh CARDIAC SRINIVASAN 3-6on 3 CK [Catalytic activity/Vol] 282 U/L Normal 39-308 [facility] Comment on above: Performed By: #### H PACOPN, CMP, CRP #### [facility] [address] [address] [address] Sea Pugh CK.MB [Mass/Vol] 4.34 ng/mL Critically high <=3.60 [facility] Comment on above: Performed By: #### H STROPN, CMP, CRP #### [facility] [address] [place] [address] Dr. Sea Pugh HSTROP 113.2 pg/mL Critically high 4.0-76.1 [facility] Comment on above: Result Comment: CUT- OFF POINTS HAVE BEEN ESTABLISHED BASED ON THE FOURTH UNIVERSAL DEFINITIONS OF MYOCARDIAL INFARCTION. THE UPPER REFERENCE LIMIT (URL) OF TROPONIN, DEFINED THE 99TH PERCENTILE OF cTnI DISTRIBUTION IN A REFERENCE POPULATION, HAS BEEN CONFIRMED THE DECISION THRESHOLD FOR [place] DIAGNOSIS. Performed By: #### H STROPN, CMP, CRP #### [facility] [address] [place] [address] Dr. Sea Pugh CBC AUTO DIFFon 04-20-2022 BASO # 0.0 103/ul Normal 0.0-0.1 [facility] Comment on above: Performed By: #### H STROPN, CMP, CRP #### [facility] [address] [place] [address] Dr. Sea Pugh Basophils/100 WBC (Bld) 0.5 % Normal 0.2-2.0 [facility] Comment on above: Performed By: #### H STROPN, CMP, CRP #### [facility] [address] [place] [address] Dr. Sea Pugh EO # 0.1 103/ul Normal 0.0-0.7 [facility] Comment on above: Performed By: #### H STROPN, CMP, CRP #### [facility] [address] [place] [address] Dr. Sea Pugh Eosinophils/100 WBC (Bld) 0.6 % Critically low 0.9-7.0 [facility] Comment on above: Performed By: #### H STROPN, CMP, CRP #### [facility] [address] [place] [address] Dr. Sea Pugh Erythrocyte distribution width (RBC) [Ratio] 13.6 % Normal 11.0-15.0 [facility] Comment on above: Performed By: #### H STROPN, CMP, CRP #### [facility] [address] [place] [address] Dr. Sea Pugh Hematocrit (Bld) [Volume fraction] 37.2 % Critically low 42.0-54.0 [facility] Comment on above: Performed By: #### H STROPN, CMP, CRP #### [facility] [address] [address] [address] Sea Pugh Hemoglobin (Bld) [Mass/Vol] 13.3 g/dL Critically low 14.0-18.0 [facility] Comment on above: Performed By: #### H STROPN, CMP, CRP #### [facility] [address] [address] [address] Sea Pugh IG # 0.04 10e3/ul Critically high 0.00-0.03 [facility] Comment on above: Performed By: #### H STROPN, CMP, CRP #### [facility] [address] [place] [address] Dr. Sea Pugh IG % 0.5 % Normal 0.0-0.5 [facility] Comment on above: Performed By: #### H STROPN, CMP, CRP #### [facility] [address] [address] [address] Sea Pugh LYMPH # 1.2 103/ul Normal 1.2-3.8 [facility] Comment on above: Performed By: #### H STROPN, CMP, CRP #### [facility] [address] [place] [address] Dr. Sea Pugh Lymphocytes/100 WBC (Bld) 14.7 % Critically low 20.5-60.0 [facility] Comment on above: Performed By: #### H STROPN, CMP, CRP #### [facility] [address] [place] [address] Dr. Sea Pugh MANUAL DIFF REQ NO Normal [facility] Comment on above: Performed By: #### H STROPN, CMP, CRP #### [facility] [address] [place] [address] Dr. Sea Pugh MCH (RBC) [Entitic mass] 29.6 pg Normal 25.9-34.0 [facility] Comment on above: Performed By: #### H STROPN, CMP, CRP #### [facility] [address] [place] [address] Dr. Sea Pugh MCHC (RBC) [Mass/Vol] 35.8 g/dL Critically high 29.9-35.2 [facility] Comment on above: Performed By: #### H STROPN, CMP, CRP #### [facility] [address] [place] [address] Dr. Sea Pugh MCV (RBC) [Entitic vol] 82.9 fL Normal 80.0-94.0 [facility] Comment on above: Performed By: #### H STROPN, CMP, CRP #### [facility] [address] [place] [address] Dr. Sea Pugh MONO # 0.7 103/ul Normal 0.3-0.8 [facility] Comment on above: Performed By: #### H STROPN, CMP, CRP #### [facility] [address] [place] [address] Dr. Sea Pugh Monocytes/100 WBC (Bld) 9.4 % Normal 1.7-12.0 [facility] Comment on above: Performed By: #### H STROPN, CMP, CRP #### [facility] [address] [place] [address] Dr. Sea Pugh NEUT # 5.9 103/ul Normal 1.4-6.5 [facility] Comment on above: Performed By: #### H STROPN, CMP, CRP #### [facility] [address] [place] [address] Dr. Sea Pugh Neutrophils/100 WBC (Bld) 74.3 % Normal 43.0-75.0 [facility] Comment on above: Performed By: #### H STROPN, CMP, CRP #### [facility] [address] [place] [address] Dr. Sea Pugh Platelet mean volume (Bld) [Entitic vol] 9.4 fL Critically low 9.5-13.5 [facility] Comment on above: Performed By: #### H STROPN, CMP, CRP #### [facility] [address] [place] [address] Dr. Sea Pugh PLT 215 103/ul Normal 150-450 [facility] Comment on above: Performed By: #### H STROPN, CMP, CRP #### [facility] [address] [address] [address] Sea Pugh RBC 4.49 106/ul Critically low 4.70-6.10 [facility] Comment on above: Performed By: #### H STROPN, CMP, CRP #### [facility] [address] [address] [address] Sea Pugh WBC 7.9 103/ul Normal 4.0-11.0 [facility] Comment on above: Performed By: #### H STROPN, CMP, CRP #### [facility] [address] [address] [address] Sea Pugh [facility]24 SARS-CoV-2 (COVID-19) RNA PHOENIX+probe Ql (Unsp spec) Not detected Normal NOT DETECTED [facility] Comment on above: Result Comment: When diagnostic testing is negative, the possibility of a false negative should be considered in the context of a patient's recent exposures and the presence of clinical signs and symptoms consistent with SARS-CoV-2. This test is not yet approved or cleared by the [place] FDA. When there are no FDA-approved or cleared tests available, and other criteria are met, FDA can make tests available under an emergency access mechanism called an Emergency Use Authorization (EUA). The EUA for this test is supported by the [place] of Health and Human Service's declaration that circumstances exist to justify the emergency use of in vitro diagnostics for the detection and/or diagnosis of the virus that causes COVID-19. This EUA will remain in effect for the duration of the COVID-19 declaration justifying emergency of IVDs, unless it is terminated or revoked by the FDA (after which the test may no longer be used). Performed By: #### D DIM #### [facility] [address] [address] [address] Sea Pugh POINT OF CARE GLUCOSEon 03-24 Glucose [Mass/Vol] 134 mg/dL Critically high 74-106 [facility] Comment on above: Performed By: #### D DIM #### [facility] [address] [address] [address] Sea Pugh PROF CHEM 8 (BAS METB)on Anion gap [Moles/Vol] 15.3 mmol/L Normal [facility] Comment on above: Performed By: #### B MP ####[facility] [address] [address]DrMook Pugh Calcium [Mass/Vol] 8.9 mg/dL Normal 8.5-10.1 [facility] Comment on above: Performed By: #### B MP ####[facility] [address] [address]Dr. Sea Pugh Chloride [Moles/Vol] 101 mmol/L Normal 98-107 [facility] Comment on above: Performed By: #### B MP ####[facility] [address] [address]Dr. Sea Pugh CO2 [Moles/Vol] 25.5 mmol/L Normal 21.0-32.0 [facility] Comment on above: Performed By: #### B MP ####[facility] [address] [address]Dr. Sea Pugh Creatinine [Mass/Vol] 1.09 mg/dL Normal 0.70-1.30 [facility] Comment on above: Performed By: #### B MP ####[facility] [address] [address]DrMook Pugh EGFR-AF [place]ORE[place] >60 Normal >=60 [facility] Comment on above: Performed By: #### B MP ####[facility] [address] [id number] Pugh EGFR-NON AF [place]ORE[place] >60 Normal >=60 [facility] Comment on above: Performed By: #### B MP ####[facility] [address] [address]DrMook Pugh Glucose [Mass/Vol] 150 mg/dL Critically high 74-106 [facility] Comment on above: Performed By: #### B MP ####[facility] [address] [place], [place] [address]Wf. Sea Pugh Potassium [Moles/Vol] 3.8 mmol/L Normal 3.5-5.1 [facility] Comment on above: Performed By: #### B MP ####[facility] [address] [place], [place] [address]Bm. Sea Pugh Sodium [Moles/Vol] 138 mmol/L Normal 136-145 [facility] Comment on above: Performed By: #### B MP ####[facility] [address] [place], [place] [address]Wb. Sea Pugh Urea nitrogen [Mass/Vol] 11.0 mg/dL Normal 7.0-18.0 [facility] Comment on above: Performed By: #### B MP ####[facility] [address] [id number]. Sea Pugh Urea nitrogen/Creatinine [Mass ratio] 10.1 mg/mg Normal [facility] Comment on above: Performed By: #### B MP ####[facility] [address] [id number][address] Sea Pugh TROPONIN, HIGH SENSITIVITYon 04-20-2022 HSTROP 136.3 pg/mL Critically high 4.0-76.1 [facility] Comment on above: Result Comment: CUT- OFF POINTS HAVE BEEN ESTABLISHED BASED ON THE FOURTH UNIVERSAL DEFINITIONS OF MYOCARDIAL INFARCTION. THE UPPER REFERENCE LIMIT (URL) OF TROPONIN, DEFINED THE 99TH PERCENTILE OF cTnI DISTRIBUTION IN A REFERENCE POPULATION, HAS BEEN CONFIRMED THE DECISION THRESHOLD FOR [place] DIAGNOSIS. Performed By: #### D DIM #### [facility] [address] [place], [place] [address] Dr. Sea Pugh HSTROP 141.1 pg/mL Critically high 4.0-76.1 [facility] Comment on above: Result Comment: CUT- OFF POINTS HAVE BEEN ESTABLISHED BASED ON THE FOURTH UNIVERSAL DEFINITIONS OF MYOCARDIAL INFARCTION. THE UPPER REFERENCE LIMIT (URL) OF TROPONIN, DEFINED THE 99TH PERCENTILE OF cTnI DISTRIBUTION IN A REFERENCE POPULATION, HAS BEEN CONFIRMED THE DECISION THRESHOLD FOR [place] DIAGNOSIS. Performed By: #### H STROPN #### [facility] [address] [address] [address] Sea Pugh CARDIAC SRINIVASAN ADMITon 023 CK [Catalytic activity/Vol] 266 U/L Normal 39-308 [facility] Comment on above: Performed By: #### B DIANA, DOUGIEDM ####[facility] [address] [id number]. Sea Pugh CK.MB [Mass/Vol] 4.18 ng/mL Critically high <=3.60 [facility] Comment on above: Performed By: #### B DIANA, DOUGIEDM ####[facility] [address] [address]Dr. Sea Pugh HSTROP 32.5 pg/mL Normal 4.0-76.1 [facility] Comment on above: Result Comment: CUT- OFF POINTS HAVE BEEN ESTABLISHED BASED ON THE FOURTH UNIVERSAL DEFINITIONS OF MYOCARDIAL INFARCTION. THE UPPER REFERENCE LIMIT (URL) OF TROPONIN, DEFINED THE 99TH PERCENTILE OF cTnI DISTRIBUTION IN A REFERENCE POPULATION, HAS BEEN CONFIRMED THE DECISION THRESHOLD FOR [place] DIAGNOSIS. Performed By: #### B DIANA, SANJEEV ####[facility] [address] [id number]. Sea Pugh RAMONE 241 ng/mL Critically high 16-96 [facility] Comment on above: Performed By: #### B DIANA, DOUGIEDM ####[facility] [address] [id number]. Sea Pugh CBC AUTO DIFFon 04-19-2022 BASO # 0.0 103/ul Normal 0.0-0.1 [facility] Comment on above: Performed By: #### C BC #### [facility] [address] [address] [address] Sea Pugh Basophils/100 WBC (Bld) 0.3 % Normal 0.2-2.0 [facility] Comment on above: Performed By: #### C BC #### [facility] [address] [address] [address] Sea Pugh EO # 0.2 103/ul Normal 0.0-0.7 [facility] Comment on above: Performed By: #### C BC #### [facility] [address] [address] [address] Sea Pugh Eosinophils/100 WBC (Bld) 1.4 % Normal 0.9-7.0 [facility] Comment on above: Performed By: #### C BC #### [facility] [address] [place] [address] Dr. Sea Pugh Erythrocyte distribution width (RBC) [Ratio] 13.5 % Normal 11.0-15.0 [facility] Comment on above: Performed By: #### C BC #### [facility] [address] [place] [address] Dr. Sea Pugh Hematocrit (Bld) [Volume fraction] 37.5 % Critically low 42.0-54.0 [facility] Comment on above: Performed By: #### C BC #### [facility] [address] [place] [address] Dr. Sea Pugh Hemoglobin (Bld) [Mass/Vol] 13.4 g/dL Critically low 14.0-18.0 [facility] Comment on above: Performed By: #### C BC #### [facility] [address] [place] [address] Dr. Sea Pugh IG # 0.08 10e3/ul Critically high 0.00-0.03 [facility] Comment on above: Performed By: #### C BC #### [facility] [address] [place] [address] Dr. Sea Pugh IG % 0.7 % Critically high 0.0-0.5 [facility] Comment on above: Performed By: #### C BC #### [facility] [address] [place] [address] Dr. Sea Pugh LYMPH # 1.1 103/ul Critically low 1.2-3.8 [facility] Comment on above: Performed By: #### C BC #### [facility] [address] [place] [address] Dr. Sea Pugh Lymphocytes/100 WBC (Bld) 8.7 % Critically low 20.5-60.0 [facility] Comment on above: Performed By: #### C BC #### [facility] [address] [place] [address] Dr. Sea Pugh MANUAL DIFF REQ NO Normal [facility] Comment on above: Performed By: #### C BC #### [facility] [address] [place] [address] Dr. Sea Pugh MCH (RBC) [Entitic mass] 30.0 pg Normal 25.9-34.0 [facility] Comment on above: Performed By: #### C BC #### [facility] [address] [place] [address] Dr. Sea Pugh MCHC (RBC) [Mass/Vol] 35.7 g/dL Critically high 29.9-35.2 [facility] Comment on above: Performed By: #### C BC #### [facility] [address] [place] [address] Dr. Sea Pugh MCV (RBC) [Entitic vol] 84.1 fL Normal 80.0-94.0 [facility] Comment on above: Performed By: #### C BC #### [facility] [address] [place] [address] Dr. Sea Pugh MONO # 0.8 103/ul Normal 0.3-0.8 [facility] Comment on above: Performed By: #### C BC #### [facility] [address] [place] [address] Dr. Sea Pugh Monocytes/100 WBC (Bld) 6.8 % Normal 1.7-12.0 [facility] Comment on above: Performed By: #### C BC #### [facility] [address] [place] [address] Dr. Sea Pugh NEUT # 10.0 103/ul Critically high 1.4-6.5 [facility] Comment on above: Performed By: #### C BC #### [facility] [address] [place] [address] Dr. Sea Pugh Neutrophils/100 WBC (Bld) 82.1 % Critically high 43.0-75.0 [facility] Comment on above: Performed By: #### C BC #### [facility] [address] [address] [address] Sea Pugh Platelet mean volume (Bld) [Entitic vol] 9.2 fL Critically low 9.5-13.5 [facility] Comment on above: Performed By: #### C BC #### [facility] [address] [address] [address] Sea Pugh PLT 203 103/ul Normal 150-450 [facility] Comment on above: Performed By: #### C BC #### [facility] [address] [address] [address] Sea Pugh RBC 4.46 106/ul Critically low 4.70-6.10 [facility] Comment on above: Performed By: #### C BC #### [facility] [address] [address] [address] Sea Pugh WBC 12.1 103/ul Critically high 4.0-11.0 [facility] Comment on above: Performed By: #### C BC #### [facility] [address] CSPINE WO CONon 3 CT CSPINE WO CON EXAMINATION: CT CSPINE WO CON HISTORY: Syncope COMPARISON: None. TECHNIQUE: CT Cervical spine without IV contrast. Coronal and sagittal reformations were performed. Dose reduction techniques were achieved by using automated exposure control and/or adjustment of mA and/or kV according to patient size and/or use of iterative reconstruction technique. FINDINGS: Again demonstrated is straightening of the normal cervical lordosis. Vertebral body heights and alignments exhibit no fracture or listhesis. The dens and lateral masses of C1 are symmetric. Multilevel intervertebral disc space narrowing, endplate, uncovertebral and facet arthrosis. No prevertebral soft tissue edema. IMPRESSION: No visualized acute irregularities. Electronically authenticated by: REINA GOMEZ Date: 2022-04-19 20:22 Normal [facility] CT STROKE HEAD WOon 04-19-[address] STROKE HEAD WO NONCONTRAST CT SCAN OF THE HEAD CT STROKE HEAD WO HISTORY:: Syncope in a 76-year-old male TECHNIQUE: Multiple axial images are taken from the level the vertex down to the base of the skull without the use of IV contrast. Images were then reconstructed in the sagittal and coronal planes. This exam was performed according to our departmental dose-optimization program which includes use of Automated Exposure Control, adjustment of the mA and/or kV according to patient size and/or use of iterative reconstruction technique. COMPARISON: November 27, 2021 CT head noncontrast FINDINGS: Brain Parenchyma: Encephalomalacia within the right parietal temporal lobe in an area of prior old infarct. There is global, diffuse atrophy with periventricular decreased white matter attenuation. No intracranial mass. No intracranial hemorrhage. Posterior fossa: Normal. Midline shift: None Extra-axial fluid collection: None Ventricles: Normal. Mastoid air cells: Normal. Sinuses: Normal. Cranium: No depressed skull fracture. Soft tissues: Normal. Orbits: Orbits demonstrate postoperative changes from prior cataract resection with prosthetic lens implant. IMPRESSION: 1. Chronic small vessel ischemic change. 2. Old stroke in the right parietal temporal lobe. 3. Otherwise, no CT evidence for acute pathology. 4. If symptoms continue, MRI may help better delineate. Electronically authenticated by: OBI MIDDLETON Date: 2022-04-19 20:08 Normal [facility] CTA CHEST WO W CONon 023 CTA CHEST WO W CON EXAMINATION:CTA CHES T WO W CON INDICATION:Syncope COMPARISON:12/06/2021 TECHNIQUE:Thin section transaxial slices were acquired through the chest. Coronal and sagittal reconstructed images were reviewed. IV CONTRAST:With FINDINGS: LUNGS: There are patchy groundglass densities in each lower lobe which are felt to be areas of atelectasis due to some minimal breathing motion artifact. No suspicious airspace disease is present within the lungs. There is no pneumothorax. PLEURAL CAVITY: No pleural effusion. MEDIASTINUM: Trachea and central airways are patent. HEART: Coronary artery calcifications are present. VASCULAR:There is no aneurysm or dissection of the thoracic aorta. There is scattered atherosclerotic plaque throughout the thoracic aorta. LYMPH NODES:There is no suspicious lymphadenopathy in the chest. CHEST WALL/AXILLA: Chest wall and axilla are unremarkable. BONES: There is a similar mild compression deformity of the superior T7 vertebral body which is chronic. No acute osseous injuries are present in the chest. VISUALIZED UPPER ABDOMEN: Upper abdominal structures are unremarkable. IMPRESSION: Unremarkable CT angiogram of the chest. No acute aortic syndrome in the thoracic aorta. No traumatic injuries or suspicious airspace disease. Electronically authenticated by: RIC MOON Date: 2022-04-19 21:52 Normal [facility] D-DIMERon 04-19-2022 D-DIMER 2.01 mg/L FEU Critically high <=0.59 [facility] Comment on above: Performed By: #### D DIM #### [facility] [address] [address] [address] Sea Pugh D-DIMER COMMENTS SEE BELOW Normal [facility] Comment on above: Result Comment: Incr eases in D-Dimer concentration observed with thromboembolic events can be variable due to localization, size, and age of the thrombus. Therefore, a thromboembolic event cannot be diagnosed with certainty on the basis of the reference range. D-Dimers may also be elevated for a variety of disorders including: advanced age, , coronary disease, cancer, liver disease, infection, inflammation, hematoma, DIC, trauma, post-surgery, diabetes, thrombolytic or anticoagulant therapy, stress, and generalized hospitalization. Performed By: #### D DIM #### [facility] [address] [address] [address] Sea Pugh PROF CHEM 8 (BAS METB)on Anion gap [Moles/Vol] 19.2 mmol/L Normal [facility] Comment on above: Performed By: #### B SANJEEV ORTIZ ####[facility] [address] [id number] Pugh Calcium [Mass/Vol] 9.1 mg/dL Normal 8.5-10.1 [facility] Comment on above: Performed By: #### B SANJEEV ORTIZ ####[facility] [address] [id number] Pugh Chloride [Moles/Vol] 98 mmol/L Normal 98-107 [facility] Comment on above: Performed By: #### B DOUGIE ORTIZDM ####[facility] [address] [id number] Pugh CO2 [Moles/Vol] 21.4 mmol/L Normal 21.0-32.0 [facility] Comment on above: Performed By: #### B DIANA, SANJEEV ####[facility] [address] [address]Dr. Sea Pugh Creatinine [Mass/Vol] 1.45 mg/dL Critically high 0.70-1.30 [facility] Comment on above: Performed By: #### B DIANA, SANJEEV ####[facility] [address] [place], [place] [address]Dr. Sea Pugh EGFR-AF [place]OREAN 58 mL/min/1.73m2 Critically low >=60 [facility] Comment on above: Performed By: #### B DIANA, SANJEEV ####[facility] [address] [place], [place] [address]Dr. Sea Pugh EGFR-NON AF [place]ORE[place] 47 mL/min/1.73m2 Critically low >=60 [facility] Comment on above: Performed By: #### SANJEEV Martins MP ####[facility] [address] [place], [place] [address]Dr. Sea Pugh Glucose [Mass/Vol] 221 mg/dL Critically high 74-106 [facility] Comment on above: Performed By: #### SANJEEV Martins MP ####[facility] [address] [place], [place] [address]Dr. Sea Pugh Potassium [Moles/Vol] 3.6 mmol/L Normal 3.5-5.1 [facility] Comment on above: Performed By: #### Lakshmi ORTIZ, SANJEEV ####[facility] [address] [place], [place] [address]Dr. Sea Pugh Sodium [Moles/Vol] 135 mmol/L Critically low 136-145 Th [facility] Comment on above: Performed By: #### B SANJEEV ORTIZ ####[facility] [address] [place], [place] [address]Dr. Sea Pugh Urea nitrogen [Mass/Vol] 12.0 mg/dL Normal 7.0-18.0 [facility] Comment on above: Performed By: #### SANJEEV Martins MP ####[facility] [address] [address]Dr. Sea Pugh Urea nitrogen/Creatinine [Mass ratio] 8.3 mg/mg Normal [facility] Comment on above: Performed By: #### B SANJEEV ORTIZ ####[facility] [address] [address]Dr. Sea Pugh XR CHEST 1 Von 04-19-2022 XR CHEST 1 V EXAMINATION: XR CHES T 1 V HISTORY: Left arm weakness and tingling. 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 COMPARISON: 09/22/2021 portable chest TECHNIQUE: Portable chest FINDINGS: The lung parenchyma is free of consolidation or infiltrate. No pneumothorax or pleural effusion. The cardiac, mediastinal and hilar contours are normal. The visualized osseous structures exhibit no gross abnormality. IMPRESSION: No acute cardiopulmonary abnormality. 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 TECHNIQUE: A swallowing evaluation was performed with fluoroscopy in the usual manner. Standard level fluoroscopic mode of operation utilized. 0.9 minutes of fluoroscopy. 27 images FINDINGS: ORAL PHASE: Normal deglutition. PHARYNGEAL PHASE: Normal swallowing. ASPIRATION: None. STRUCTURE: Normal. No visible obstruction, stricture, or dilatation. OTHER: Negative. IMPRESSION: Normal modified barium swallow Electronically authenticated by: REINA GO Date: 2021-12-20 10:49 Normal [facility] CARDIAC SRINIVASAN 3-6on 2 CK [Catalytic activity/Vol] 63 U/L Normal 39-308 [facility] Comment on above: Performed By: #### C MREP ####[facility] [address] [address]DrMook Pugh CK.MB [Mass/Vol] 1.00 ng/mL Normal <=3.60 [facility] Comment on above: Performed By: #### C MREP ####[facility] [address] [address]DrMook Pugh HSTROP 7.1 pg/mL Normal 4.0-76.1 [facility] Comment on above: Result Comment: CUT- OFF POINTS HAVE BEEN ESTABLISHED BASED ON THE FOURTH UNIVERSAL DEFINITIONS OF MYOCARDIAL INFARCTION. THE UPPER REFERENCE LIMIT (URL) OF TROPONIN, DEFINED THE 99TH PERCENTILE OF cTnI DISTRIBUTION IN A REFERENCE POPULATION, HAS BEEN CONFIRMED THE DECISION THRESHOLD FOR [place] DIAGNOSIS. Performed By: #### C MREP ####[facility] [address] [place], [place] [address]BeDr. Sea Pugh CARDIAC SRINIVASAN ADMITon 022 CK [Catalytic activity/Vol] 66 U/L Normal 39-308 [facility] Comment on above: Performed By: #### D DIM #### [facility] [address] [address] [address] Sea Pugh CK.MB [Mass/Vol] 0.93 ng/mL Normal <=3.60 [facility] Comment on above: Performed By: #### D DIM #### [facility] [address] [place] [address] Dr. Sea Pugh HSTROP 8.2 pg/mL Normal 4.0-76.1 [facility] Comment on above: Result Comment: CUT- OFF POINTS HAVE BEEN ESTABLISHED BASED ON THE FOURTH UNIVERSAL DEFINITIONS OF MYOCARDIAL INFARCTION. THE UPPER REFERENCE LIMIT (URL) OF TROPONIN, DEFINED THE 99TH PERCENTILE OF cTnI DISTRIBUTION IN A REFERENCE POPULATION, HAS BEEN CONFIRMED THE DECISION THRESHOLD FOR [place] DIAGNOSIS. Performed By: #### D DIM #### [facility] [address] [place] [address] Dr. Sea Pugh RAMONE 62 ng/mL Normal 16-96 [facility] Comment on above: Performed By: #### D DIM #### [facility] [address] [address] [address] Sea Pugh CBC AUTO DIFFon 12-06-2021 BASO # 0.0 103/ul Normal 0.0-0.1 [facility] Comment on above: Performed By: #### D DIM #### [facility] [address] [address] [address] Sea Pugh Basophils/100 WBC (Bld) 0.3 % Normal 0.2-2.0 [facility] Comment on above: Performed By: #### D DIM #### [facility] [address] [address] [address] Sea Pugh EO # 0.5 103/ul Normal 0.0-0.7 [facility] Comment on above: Performed By: #### D DIM #### [facility] [address] [address] [address] Sea Pugh Eosinophils/100 WBC (Bld) 5.4 % Normal 0.9-7.0 [facility] Comment on above: Performed By: #### D DIM #### [facility] [address] [place] [address] Dr. Sea Pugh Erythrocyte distribution width (RBC) [Ratio] 13.7 % Normal 11.0-15.0 [facility] Comment on above: Performed By: #### D DIM #### [facility] [address] [place] [address] Dr. Sea Pugh Hematocrit (Bld) [Volume fraction] 34.9 % Critically low 42.0-54.0 [facility] Comment on above: Performed By: #### D DIM #### [facility] [address] [place] [address] Dr. Sea Pugh Hemoglobin (Bld) [Mass/Vol] 12.2 g/dL Critically low 14.0-18.0 [facility] Comment on above: Performed By: #### D DIM #### [facility] [address] [place] [address] Dr. Sea Pugh IG # 0.07 10e3/ul Critically high 0.00-0.03 [facility] Comment on above: Performed By: #### D DIM #### [facility] [address] [place] [address] Dr. Sea Pugh IG % 0.7 % Critically high 0.0-0.5 [facility] Comment on above: Performed By: #### D DIM #### [facility] [address] [place] [address] Dr. Sea Pugh LYMPH # 1.3 103/ul Normal 1.2-3.8 [facility] Comment on above: Performed By: #### D DIM #### [facility] [address] [address] [address] Sea Pugh Lymphocytes/100 WBC (Bld) 13.5 % Critically low 20.5-60.0 [facility] Comment on above: Performed By: #### D DIM #### [facility] [address] [address] [address] Sea Pugh MANUAL DIFF REQ NO Normal [facility] Comment on above: Performed By: #### D DIM #### [facility] [address] [address] [address] Sea Pugh MCH (RBC) [Entitic mass] 30.5 pg Normal 25.9-34.0 [facility] Comment on above: Performed By: #### D DIM #### [facility] [address] [place] [address] Dr. Sea Pugh MCHC (RBC) [Mass/Vol] 35.0 g/dL Normal 29.9-35.2 [facility] Comment on above: Performed By: #### D DIM #### [facility] [address] [address] [address] Sea Pugh MCV (RBC) [Entitic vol] 87.3 fL Normal 80.0-94.0 [facility] Comment on above: Performed By: #### D DIM #### [facility] [address] [place] [address] Dr. Sea Pugh MONO # 1.3 103/ul Critically high 0.3-0.8 [facility] Comment on above: Performed By: #### D DIM #### [facility] [address] [address] [address] Sea Pugh Monocytes/100 WBC (Bld) 12.9 % Critically high 1.7-12.0 [facility] Comment on above: Performed By: #### D DIM #### [facility] [address] [address] [address] Sea Pugh NEUT # 6.7 103/ul Critically high 1.4-6.5 [facility] Comment on above: Performed By: #### D DIM #### [facility] [address] [address] [address] Sea Pugh Neutrophils/100 WBC (Bld) 67.2 % Normal 43.0-75.0 [facility] Comment on above: Performed By: #### D DIM #### [facility] [address] [address] [address] Sea Pugh Platelet mean volume (Bld) [Entitic vol] 9.7 fL Normal 9.5-13.5 [facility] Comment on above: Performed By: #### D DIM #### [facility] [address] [address] [address] Sea Pugh PLT 226 103/ul Normal 150-450 [facility] Comment on above: Performed By: #### D DIM #### [facility] [address] [place] [address] Dr. Sea Pugh RBC 4.00 106/ul Critically low 4.70-6.10 [facility] Comment on above: Performed By: #### D DIM #### [facility] [id number] Sea Pugh WBC 10.0 103/ul Normal 4.0-11.0 [facility] Comment on above: Performed By: #### D DIM #### [facility] [address] [place], [place] [id number] Dr. Sea Pugh CTA CHEST WO W CONon -16-2 022 CTA CHEST WO W CON EXAMINATION: CTA CHEST WO W CON HISTORY: SHORTNESS OF BREATH chest pressure, recent stroke COMPARISON: CT chest 09/22/2021 TECHNIQUE: CT angiography of the pulmonary arteries following the administration of 100 mL Omnipaque 350 intravenous contrast. Coronal and sagittal MIP (maximum intensity projection) images were performed. 3-D reconstruction. Dose reduction techniques were achieved by using automated exposure control and/or adjustment of mA and/or kV according to patient size and/or use of iterative reconstruction technique. FINDINGS: No evidence for acute pulmonary embolism, thoracic aortic aneurysm, or aortic dissection. Moderate left coronary artery calcifications. Focal 1.4 cm thick anterior pericardial effusion. No enlarged mediastinal or hilar lymph nodes by CT size criteria. Moderate amount of fluid or mucus within the right bronchus. Mild bilateral upper lobe paraseptal and centrilobular emphysema. No lung consolidation, large pleural effusions, pneumothorax, or suspicious groundglass lung infiltrates. Mild pneumobilia partially seen. Prior cholecystectomy. Finding could reflect underlying sphincter laxity etiology. Minimal hiatal hernia. No acute bony abnormality. IMPRESSION: No evidence for acute pulmonary embolism, thoracic aortic aneurysm, or aortic dissection. Moderate left coronary artery calcifications. Focal 1.4 cm thick anterior pericardial effusion. Moderate amount of fluid/secretions within the right bronchus, reflecting aspiration or mucous. Mild bilateral upper lobe paraseptal and centrilobular emphysema. Mild pneumobilia. Electronically authenticated by: OSITO CUELLO Date: 2021-12-06 01:29 Normal [facility] D-DIMERon 12-06-2021 D-DIMER 1.11 mg/L FEU Critically high <=0.59 [facility] Comment on above: Performed By: #### D DIM #### [facility] [address] [address] [address] Sea Pugh D-DIMER COMMENTS SEE BELOW Normal [facility] Comment on above: Result Comment: Incr eases in D-Dimer concentration observed with thromboembolic events can be variable due to localization, size, and age of the thrombus. Therefore, a thromboembolic event cannot be diagnosed with certainty on the basis of the reference range. D-Dimers may also be elevated for a variety of disorders including: advanced age, , coronary disease, cancer, liver disease, infection, inflammation, hematoma, DIC, trauma, post-surgery, diabetes, thrombolytic or anticoagulant therapy, stress, and generalized hospitalization. Performed By: #### D DIM #### [facility] [address] [address] [address] Sea Pugh PROF CHEM 8 (BAS METB)on Anion gap [Moles/Vol] 9.5 mmol/L Normal [facility] Comment on above: Performed By: #### H STROPN, CMP, CRP #### [facility] [address] [address] [address] Sea Pugh Calcium [Mass/Vol] 8.6 mg/dL Normal 8.5-10.1 [facility] Comment on above: Performed By: #### H STROPN, CMP, CRP #### [facility] [address] [address] [address] Sea Pugh Chloride [Moles/Vol] 100 mmol/L Normal 98-107 [facility] Comment on above: Performed By: #### H STROPN, CMP, CRP #### [facility] [address] [address] [address] Sea Pugh CO2 [Moles/Vol] 25.8 mmol/L Normal 21.0-32.0 [facility] Comment on above: Performed By: #### H STROPN, CMP, CRP #### [facility] [address] [address] [address] Sea Pugh Creatinine [Mass/Vol] 1.12 mg/dL Normal 0.70-1.30 [facility] Comment on above: Performed By: #### H STROPN, CMP, CRP #### [facility] [address] [address] [address] Sea Pugh EGFR-AF [place]TH [place]OREAN >60 Normal >=60 [facility] Comment on above: Performed By: #### H STROPN, CMP, CRP #### [facility] [address] [address] [address] Sea Pugh EGFR-NON AF [place]OREAN >60 Normal >=60 [facility] Comment on above: Performed By: #### H STROPN, CMP, CRP #### [facility] [address] [address] [address] Sea Pugh Glucose [Mass/Vol] 201 mg/dL Critically high 74-106 [facility] Comment on above: Performed By: #### H STROPN, CMP, CRP #### [facility] [address] [address] [address] Sea Pugh Potassium [Moles/Vol] 3.3 mmol/L Critically low 3.5-5.1 [facility] Comment on above: Performed By: #### H STROPN, CMP, CRP #### [facility] [address] [address] [address] Sea Pugh Sodium [Moles/Vol] 132 mmol/L Critically low 136-145 Th [facility] Comment on above: Performed By: #### H STROPN, CMP, CRP #### [facility] [address] [address] [address] Sea Pugh Urea nitrogen [Mass/Vol] 16.0 mg/dL Normal 7.0-18.0 [facility] Comment on above: Performed By: #### H STROPN, CMP, CRP #### [facility] [address] [address] [address] Sea Pugh Urea nitrogen/Creatinine [Mass ratio] 14.3 mg/mg Normal [facility] Comment on above: Performed By: #### H STROPN, CMP, CRP #### [facility] [address] [address] [address] Sea Pugh Basic Metabolic Panelon 11-21 Anion gap [Moles/Vol] 12 mmol/L 9 - 17 mmol/L [email or web address] [facility] Calcium [Mass/Vol] 8.3 mg/dL Low 8.6 - 10. 4 mg/dL [facility] Chloride [Moles/Vol] 100 mmol/L 98 - 10 7 mmol/L [facility] CO2 [Moles/Vol] 21 mmol/L 20 - 31 mmol/L [facility] Creatinine [Mass/Vol] 0.69 mg/dL Low 0.7 - 1.2 mg/dL [email or web address] [facility] GFR >60 60 - PI NF mL/min [email or web address] [facility] GFR Non- >60 60 - PINF mL/min [email or web address] [facility] GFR/1.73 sq M.predicted MDRD (S/P/Bld) [Vol rate/Area] [facility] Comment on above: Average GFR for 70 o r more years old: 75 mL/min/1.73sq m Chronic Kidney Disease: <60 mL/min/1.73sq m Kidney failure: <15 mL/min/1.73sq m eGFR calculated using average adult body mass. Additional eGFR calculator available at: http://www.[employer].Ixchelsis/multiple_crcl_2012.htm Glucose [Mass/Vol] 138 mg/dL High 70 - 99 mg/dL [facility] Interpretation and review of laboratory results Abnormal [facility] Potassium [Moles/Vol] 4.0 mmol/L 3.7 - 5.3 mmol/L [facility] Sodium [Moles/Vol] 133 mmol/L Low 135 - 144 mmol/L [facility] Urea nitrogen (BldV) [Mass/Vol] 12 mg/dL 8 - 23 mg/dL [facility] Basic Metabolic Profon 12-04 (cont.) Normal [facility] Comment on above: Result Comment: Aver age GFR for 70 or more years old: 75 mL/min/1.73sq m Chronic Kidney Disease: <60 mL/min/1.73sq m Kidney failure: <15 mL/min/1.73sq m eGFR calculated using average adult body mass. Additional eGFR calculator available at: http://www.[employer]/multiple_crcl_2012.htm Performed By: #### DALE KINNEY, CDP #### [facility] [address] [place] [id number] Beer Coil Cleaner: Afshin Mansfield MD Anion gap [Moles/Vol] 12 mmol/L Normal 9-17 [facility] Comment on above: Performed By: #### DALE KINNEY, CDP #### [facility] [address] [place] [address] [phone] Beer Coil Cleaner: Afshin Mansfield MD Calcium [Mass/Vol] 8.3 mg/dL Low 8.6-10.4 [facility] Comment on above: Performed By: #### DALE KINNEY, CDP #### [facility] [address] [place] [address] 38350 Beer Coil Cleaner: Afshin Mansfield MD Chloride [Moles/Vol] 100 mmol/L Normal 98-107 [facility] Comment on above: Performed By: #### DALE KINNEY, CDP #### [facility] [address] [place] [address] [phone] Beer Coil Cleaner: Afshin Mansfield MD CO2 [Moles/Vol] 21 mmol/L Normal 20-31 [facility] Comment on above: Performed By: #### I OCSUNIL BMP, CDP #### [facility] [address] [place] [address] 38782 Beer Coil Cleaner: Afshin Mansfield MD Creatinine [Mass/Vol] 0.69 mg/dL Low 0.70-1.20 [facility] Comment on above: Performed By: #### I OCAL, BMP, CDP #### [facility] [address] [place] [address] [phone] Beer Coil Cleaner: Afshin Mansfield MD GFR, Amer >60 Normal >60 [facility] Comment on above: Performed By: #### I OCSUNIL BMP, CDP #### [facility] [address] [place] [address] 53089 Beer Coil Cleaner: Afshin Manfsield MD GFR,non Amer >60 Normal >60 [facility] Comment on above: Performed By: #### I OCSUNIL BMP, CDP #### [facility] [address] [place] [address] 38015 Beer Coil Cleaner: Afshin Mansfield MD Glucose [Mass/Vol] 138 mg/dL High 70-99 [facility] Comment on above: Performed By: #### I OCSUNIL BMP, CDP #### [facility] [address] [place] [address] 32159 Beer Coil Cleaner: Afshin Mansfield MD Potassium [Moles/Vol] 4.0 mmol/L Normal 3.7-5.3 [facility] Comment on above: Performed By: #### I OCSUNIL, BMP, CDP #### [facility] [address] [place] [address] [phone] Beer Coil Cleaner: Afshin Mansfield MD Sodium [Moles/Vol] 133 mmol/L Low 135-144 [facility] Comment on above: Performed By: #### I OCDALE BARBER, CDP #### [facility] [address] [place], [place] [phone] Beer Coil Cleaner: Afshin Mansfield MD Urea nitrogen [Mass/Vol] 12 mg/dL Normal 8-23 [facility] Comment on above: Performed By: #### I OCDALE BARBER, CDP #### [facility] [address] [place], [place] [phone] Beer Coil Cleaner: Afshin Mansfield MD CBC with Auto Differentialon 12-04-2021 Absolute Eos # 0.64 High [facility] Absolute Immature Granulocyte 0.06 [facility] Absolute Lymph # 1.09 Low [facility] Absolute [place] # 1.29 High [facility] Basophils (Bld) [#/Vol] 0.04 10*3/uL [facility] Basophils/100 WBC (Bld) 0 % 0 - 2 % [facility] Eosinophils/100 WBC (Bld) 6 % High 1 - 4 % [facility] Hematocrit (Bld) [Volume fraction] 36.1 % Low 40.7 - 50.3 % [facility] Hemoglobin (Bld) [Mass/Vol] 12.6 g/dL Low 13 - 17 g/dL [facility] Immature granulocytes/100 WBC (Bld) 1 % High 0 [facility] Interpretation and review of laboratory results Abnormal [facility] Lymphocytes/100 WBC (Bld) 9 % Low 24 - 43 % [facility] MCH (RBC) [Entitic mass] 30.1 pg 25.2 - 33.5 pg [facility] MCHC (RBC) [Mass/Vol] 34.9 g/dL High 28.4 - 34.8 g/dL [facility] MCV (RBC) [Entitic vol] 86.2 fL 82.6 - 102.9 fL [facility] Monocytes/100 WBC (Bld) 11 % 3 - 12 % [facility] NRBC Automated 0.0 0.0 per 100 WBC [facility] Platelet distribution width (Bld) [Ratio] 13.6 % 11.8 - 14.4 % [facility] Platelet mean volume (Bld) [Entitic vol] 9.8 fL 8.1 - 13.5 fL [facility] Platelets (Bld) [#/Vol] 212 10*3/uL [facility] RBC (Bld) [#/Vol] 4.19 10*6/uL Low 4.21 - 5.7 7 m/uL [facility] Segmented neutrophils/100 WBC (Bld) 73 % High 36 - 65 % [facility] Segs Absolute 8.59 High [facility] WBC (Bld) [#/Vol] 11.7 10*3/uL High [facility] CBC with Diffon 12-04-2021 Abs. Basophil 0.04 k/uL Normal 0.00-0.20 [facility] Comment on above: Performed By: #### I DALE REYES, CDP #### [facility] [address] [place] [address] Beer Coil Cleaner: Afshin Mansfield MD Abs.Imm.Granulocyte 0.06 k/uL Normal 0.00-0.30 [facility] Comment on above: Performed By: #### DALE KINNEY, CDP #### [facility] [address] [place] [address] [phone] Beer Coil Cleaner: Afshin Mansfield MD Abs.Neutrophil (Seg) 8.59 k/uL High 1.50-8.10 [facility] Comment on above: Performed By: #### DALE KINNEY, CDP #### [facility] [address] [place] [address] [phone] Beer Coil Cleaner: Afshin Mansfield MD Basophils/100 WBC (Bld) 0 % Normal 0-2 [facility] Comment on above: Performed By: #### DALE KINNEY, CDP #### [facility] [address] [place] [address] 17841 Beer Coil Cleaner: Afshin Mansfield MD Eosinophils (Bld) [#/Vol] 0.64 10*3/uL High 0.00-0.44 [facility] Comment on above: Performed By: #### DALE KINNEY, CDP #### [facility] [address] [place] [address] 42184 Beer Coil Cleaner: Afshin Mansfield MD Eosinophils/100 WBC (Bld) 6 % High 1-4 [facility] Comment on above: Performed By: #### DALE KINNEY, CDP #### [facility] [address] [place] [address] [phone] Beer Coil Cleaner: Afshin Mansfield MD Erythrocyte distribution width (RBC) [Ratio] 13.6 % Normal 11.8-14.4 [facility] Comment on above: Performed By: #### DALE KINNEY, CDP #### [facility] [address] [place] [address] 69782 Beer Coil Cleaner: Afshin Mansfield MD Hematocrit (Bld) [Volume fraction] 36.1 % Low 40.7-50.3 [facility] Comment on above: Performed By: #### DALE KINNEY, CDP #### [facility] [address] [place] [address] 75123 Beer Coil Cleaner: Afshin Mansfield MD Hemoglobin (Bld) [Mass/Vol] 12.6 g/dL Low 13.0-17.0 [facility] Comment on above: Performed By: #### DALE KINNEY, CDP #### [facility] [address] [place] [address] 10204 Beer Coil Cleaner: Afshin Mansfield MD Immature granulocytes/100 WBC (Bld) 1 % High 0 [facility] Comment on above: Performed By: #### DALE KINNEY, CDP #### [facility] [address] [place] [address] 07556 Beer Coil Cleaner: Afshin Mansfield MD Lymphocytes (Bld) [#/Vol] 1.09 10*3/uL Low 1.10-3.70 [facility] Comment on above: Performed By: #### I DALE REYES, CDP #### [facility] [address] [place] [address] 03643 Beer Coil Cleaner: Afshin Mansfield MD Lymphocytes/100 WBC (Bld) 9 % Low 24-43 [facility] Comment on above: Performed By: #### I DALE REYES, CDP #### [facility] [address] [place] [address] 96708 Beer Coil Cleaner: Afshin Mansfield MD MCH (RBC) [Entitic mass] 30.1 pg Normal 25.2-33.5 [facility] Comment on above: Performed By: #### DALE KINNEY, CDP #### [facility] [address] [place] [address] [phone] Beer Coil Cleaner: Afshin Mansfield MD MCHC (RBC) [Mass/Vol] 34.9 g/dL High 28.4-34.8 [facility] Comment on above: Performed By: #### DALE KINNEY, CDP #### [facility] [address] [place] [address] 47495 Beer Coil Cleaner: Afshin Mansfield MD MCV (RBC) [Entitic vol] 86.2 fL Normal 82.6-102.9 [facility] Comment on above: Performed By: #### DALE KINNEY, CDP #### [facility] [address] [place] [address] 61436 Beer Coil Cleaner: Afshin Mansfield MD Monocytes (Bld) [#/Vol] 1.29 10*3/uL High 0.10-1.20 [facility] Comment on above: Performed By: #### DALE KINNEY, CDP #### [facility] [address] [place] [address] [phone] Beer Coil Cleaner: Afshin Mansfield MD Monocytes/100 WBC (Bld) 11 % Normal 3-12 [facility] Comment on above: Performed By: #### I OCSUNIL BMP, CDP #### [facility] [address] [place] [address] [phone] Beer Coil Cleaner: Afshin Mansfield MD Neutrophil (Seg) 73 % High 36-65 [facility] Comment on above: Performed By: #### I OCSUNIL, BMP, CDP #### [facility] [address] [place] [address] [phone] Beer Coil Cleaner: Afshin Mansfield MD NRBC Automated 0.0 per 100 WBC Normal 0.0 [facility] Comment on above: Performed By: #### I OCDALE BARBER, CDP #### [facility] [address] [place] [address] 42784 Beer Coil Cleaner: Afshin Mansfield MD Platelet mean volume (Bld) [Entitic vol] 9.8 fL Normal 8.1-13.5 [facility] Comment on above: Performed By: #### I OCDALE BARBER, CDP #### [facility] [address] [place] [address] 38284 Beer Coil Cleaner: Afshin Mansfield MD Platelets (Bld) [#/Vol] 212 10*3/uL Normal 138-453 [facility] Comment on above: Performed By: #### I DALE REYES, CDP #### [address] [address] Beer Coil Cleaner: Afshin Mansfield MD RBC (Bld) [#/Vol] 4.19 10*6/uL Low 4.21-5.77 [facility] Comment on above: Performed By: #### I OCDALE BARBER, CDP #### [facility] [address] [place] [address] 13309 Beer Coil Cleaner: Afshin Mansfield MD WBC (Bld) [#/Vol] 11.7 10*3/uL High 3.5-11.3 [facility] Comment on above: Performed By: #### I OCAL, BMP, CDP #### [facility] [address] [place] [address] Beer Coil Cleaner: Afshin Mansfield MD POC Glucose Fingerstickon Glucose [Mass/Vol] 110 mg/dL 75 - 110 mg/dL [facility] Basic Metabolic Panelon 11-21 Anion gap [Moles/Vol] 14 mmol/L 9 - 17 mmol/L [facility] [employer] Calcium [Mass/Vol] 8.0 mg/dL Low 8.6 - 10. 4 mg/dL [facility] [employer] Chloride [Moles/Vol] 101 mmol/L 98 - 10 7 mmol/L [facility] CO2 [Moles/Vol] 18 mmol/L Low 20 - 31 mmol/L [facility] Creatinine [Mass/Vol] 0.67 mg/dL Low 0.7 - 1.2 mg/dL [facility] GFR >60 60 - PI NF mL/min [facility] GFR Non- >60 60 - PINF mL/min [facility] GFR/1.73 sq M.predicted MDRD (S/P/Bld) [Vol rate/Area] [facility] Comment on above: Average GFR for 70 o r more years old: 75 mL/min/1.73sq m Chronic Kidney Disease: <60 mL/min/1.73sq m Kidney failure: <15 mL/min/1.73sq m eGFR calculated using average adult body mass. Additional eGFR calculator available at: http://www.[employer] [place].Ixchelsis/multiple_crcl_2012.htm Glucose [Mass/Vol] 156 mg/dL High 70 - 99 mg/dL [facility] Interpretation and review of laboratory results Abnormal [facility] Potassium [Moles/Vol] 3.9 mmol/L 3.7 - 5.3 mmol/L [facility] Sodium [Moles/Vol] 133 mmol/L Low 135 - 144 mmol/L [facility] Urea nitrogen (BldV) [Mass/Vol] 12 mg/dL 8 - 23 mg/dL [facility] Basic Metabolic Profon 12-03 (cont.) Normal [facility] Comment on above: Result Comment: Aver age GFR for 70 or more years old: 75 mL/min/1.73sq m Chronic Kidney Disease: <60 mL/min/1.73sq m Kidney failure: <15 mL/min/1.73sq m eGFR calculated using average adult body mass. Additional eGFR calculator available at: http://www.Therapydia/multiple_crcl_2012.htm Performed By: #### I OCDALE BARBER, CDP #### [facility] [address] [place] [address] [phone] Beer Coil Cleaner: Afshin Mansfield MD Anion gap [Moles/Vol] 14 mmol/L Normal 9-17 [facility] Comment on above: Performed By: #### I OCDALE BARBER, CDP #### [facility] [address] [place] [address] 25122 Beer Coil Cleaner: Afshin Mansfield MD Calcium [Mass/Vol] 8.0 mg/dL Low 8.6-10.4 [facility] Comment on above: Performed By: #### I OCSUNIL BMP, CDP #### [facility] [address] [place] [address] [phone] Beer Coil Cleaner: Afshin Mansfield MD Chloride [Moles/Vol] 101 mmol/L Normal 98-107 [facility] Comment on above: Performed By: #### I OCSUNIL BMP, CDP #### [facility] [address] [place] [address] [phone] Beer Coil Cleaner: Afshin Mansfield MD CO2 [Moles/Vol] 18 mmol/L Low 20-31 [facility] Comment on above: Performed By: #### I OCSUNIL BMP, CDP #### [facility] [address] [place] [address] 61391 Beer Coil Cleaner: Afshin Mansfield MD Creatinine [Mass/Vol] 0.67 mg/dL Low 0.70-1.20 [facility] Comment on above: Performed By: #### I DALE REYES, CDP #### [facility] [address] [place] [address] 79801 Beer Coil Cleaner: Afshin Mansfield MD GFR, Amer >60 Normal >60 [facility] Comment on above: Performed By: #### I OCSUNIL BMP, CDP #### [facility] [address] [place] [address] 47623 Beer Coil Cleaner: Afshin Mansfield MD GFR,non Amer >60 Normal >60 [facility] Comment on above: Performed By: #### I DALE REYES, CDP #### [facility] [address] [place] [address] 44404 Beer Coil Cleaner: Afshin Mansfield MD Glucose [Mass/Vol] 156 mg/dL High 70-99 [facility] Comment on above: Performed By: #### I OCDALE BARBER, CDP #### [facility] [address] [place] [address] 37240 Beer Coil Cleaner: Afshin Mansfield MD Potassium [Moles/Vol] 3.9 mmol/L Normal 3.7-5.3 [facility] Comment on above: Performed By: #### I DALE REYES, CDP #### [facility] [address] [place] [address] 12804 Beer Coil Cleaner: Afshin Mansfield MD Sodium [Moles/Vol] 133 mmol/L Low 135-144 [facility] Comment on above: Performed By: #### I OCSUNIL BMP, CDP #### [facility] [address] [place] [address] 05607 Beer Coil Cleaner: Afshin Mansfield MD Urea nitrogen [Mass/Vol] 12 mg/dL Normal 8-23 [facility] Comment on above: Performed By: #### I OCDALE BARBER, CDP #### [facility] [address] [place] [phone] Beer Coil Cleaner: Afshin Mansfield MD CBC with Auto Differentialon 12-03-2021 Absolute Eos # 0.54 High [facility] Absolute Immature Granulocyte 0.07 [facility] Absolute Lymph # 1.07 Low [facility] Absolute [place] # 1.20 [facility] Basophils (Bld) [#/Vol] 0.03 10*3/uL [facility] Basophils/100 WBC (Bld) 0 % 0 - 2 % [facility] Eosinophils/100 WBC (Bld) 5 % High 1 - 4 % [facility] Hematocrit (Bld) [Volume fraction] 37.0 % Low 40.7 - 50.3 % [facility] Hemoglobin (Bld) [Mass/Vol] 13.1 g/dL 13 - 17 g/dL [facility] Immature granulocytes/100 WBC (Bld) 1 % High 0 [facility] Interpretation and review of laboratory results Abnormal [facility] Lymphocytes/100 WBC (Bld) 10 % Low 24 - 43 % [facility] MCH (RBC) [Entitic mass] 30.8 pg 25.2 - 33.5 pg [facility] MCHC (RBC) [Mass/Vol] 35.4 g/dL High 28.4 - 34.8 g/dL [facility] MCV (RBC) [Entitic vol] 87.1 fL 82.6 - 102.9 fL [facility] Monocytes/100 WBC (Bld) 11 % 3 - 12 % [facility] NRBC Automated 0.0 0.0 per 100 WBC [facility] Platelet distribution width (Bld) [Ratio] 13.7 % 11.8 - 14.4 % [facility] Platelet mean volume (Bld) [Entitic vol] 10.6 fL 8.1 - 13.5 fL [facility] Platelets (Bld) [#/Vol] 223 10*3/uL [facility] RBC (Bld) [#/Vol] 4.25 10*6/uL 4.21 - 5.7 7 m/uL [facility] Segmented neutrophils/100 WBC (Bld) 73 % High 36 - 65 % [facility] Segs Absolute 8.06 [facility] WBC (Bld) [#/Vol] 11.0 10*3/uL [facility] CBC with Diffon 12-03-2021 Abs. Basophil 0.03 k/uL Normal 0.00-0.20 [facility] Comment on above: Performed By: #### I OCSUNIL BMP, CDP #### [facility] [address] [place] [address] 37298 Beer Coil Cleaner: Afshin Mansfield MD Abs.Imm.Granulocyte 0.07 k/uL Normal 0.00-0.30 [facility] Comment on above: Performed By: #### I OCSUNIL BMP, CDP #### [facility] [address] [place] [address] 98002 Beer Coil Cleaner: Afshin Mansfield MD Abs.Neutrophil (Seg) 8.06 k/uL Normal 1.50-8.10 [facility] Comment on above: Performed By: #### I OCSUNIL BMP, CDP #### [facility] [address] [place] [address] 62594 Beer Coil Cleaner: Afshin Mansfield MD Basophils/100 WBC (Bld) 0 % Normal 0-2 [facility] Comment on above: Performed By: #### I OCAL, BMP, CDP #### [facility] [address] [place] [address] 57800 Beer Coil Cleaner: Afshin Mansfield MD Eosinophils (Bld) [#/Vol] 0.54 10*3/uL High 0.00-0.44 [facility] Comment on above: Performed By: #### I OCSUNIL BMP, CDP #### [facility] [address] [place] [address] 69601 Beer Coil Cleaner: Afshin Mansfield MD Eosinophils/100 WBC (Bld) 5 % High 1-4 [facility] Comment on above: Performed By: #### DALE KINNEY, CDP #### [facility] [address] [place] [address] 14567 Beer Coil Cleaner: Afshin Mansfield MD Erythrocyte distribution width (RBC) [Ratio] 13.7 % Normal 11.8-14.4 [facility] Comment on above: Performed By: #### DALE KINNEY, CDP #### [facility] [address] [place] [address] 44304 Beer Coil Cleaner: Afshin Mansfield MD Hematocrit (Bld) [Volume fraction] 37.0 % Low 40.7-50.3 [facility] Comment on above: Performed By: #### DALE KINNEY, CDP #### [facility] [address] [place] [address] 44982 Beer Coil Cleaner: Afshin Mansfield MD Hemoglobin (Bld) [Mass/Vol] 13.1 g/dL Normal 13.0-17.0 [facility] Comment on above: Performed By: #### DALE KINNEY, CDP #### [facility] [address] [place] [address] 11296 Beer Coil Cleaner: Afshin Mansfield MD Immature granulocytes/100 WBC (Bld) 1 % High 0 [facility] Comment on above: Performed By: #### DALE KINNEY, CDP #### [facility] [address] [place] [address] 78312 Beer Coil Cleaner: Afshin Mansfield MD Lymphocytes (Bld) [#/Vol] 1.07 10*3/uL Low 1.10-3.70 [facility] Comment on above: Performed By: #### DALE KINNEY, CDP #### [facility] [address] [place] [address] [phone] Beer Coil Cleaner: Afshin Mansfield MD Lymphocytes/100 WBC (Bld) 10 % Low 24-43 [facility] Comment on above: Performed By: #### I OCDALE BARBER, CDP #### [facility] [address] [place] [address] [phone] Beer Coil Cleaner: Afshin Mansfield MD MCH (RBC) [Entitic mass] 30.8 pg Normal 25.2-33.5 [facility] Comment on above: Performed By: #### I OCDALE BARBER, CDP #### [facility] [address] [place] [address] 95821 Beer Coil Cleaner: Afshin Mansfield MD MCHC (RBC) [Mass/Vol] 35.4 g/dL High 28.4-34.8 [facility] Comment on above: Performed By: #### DALE KINNEY, CDP #### [address] [address] Beer Coil Cleaner: Afshin Mansfield MD MCV (RBC) [Entitic vol] 87.1 fL Normal 82.6-102.9 [facility] Comment on above: Performed By: #### DALE KINNEY, CDP #### [address] [address] Beer Coil Cleaner: Afshin Mansfield MD Monocytes (Bld) [#/Vol] 1.20 10*3/uL Normal 0.10-1.20 [facility] Comment on above: Performed By: #### I DALE REYES, CDP #### [facility] [address] [place] [address] 69826 Beer Coil Cleaner: Afshin Mansfield MD Monocytes/100 WBC (Bld) 11 % Normal 3-12 [facility] Comment on above: Performed By: #### I OCDALE BARBER, CDP #### [facility] [address] [place] [address] 62583 Beer Coil Cleaner: Afshin Mansfield MD Neutrophil (Seg) 73 % High 36-65 [facility] Comment on above: Performed By: #### I DALE REYES, CDP #### [facility] [address] [place] [address] 14812 Beer Coil Cleaner: Afshin Mansfield MD NRBC Automated 0.0 per 100 WBC Normal 0.0 [facility] Comment on above: Performed By: #### I DALE REYES, CDP #### [facility] [address] [place] [address] 63295 Beer Coil Cleaner: Afshin Mansfield MD Platelet mean volume (Bld) [Entitic vol] 10.6 fL Normal 8.1-13.5 [facility] Comment on above: Performed By: #### DALE KINNEY, CDP #### [facility] [address] [place] [address] 84860 Beer Coil Cleaner: Afshin Mansfield MD Platelets (Bld) [#/Vol] 223 10*3/uL Normal 138-453 [facility] Comment on above: Performed By: #### DALE KINNEY, CDP #### [facility] [address] [place] [address] 19946 Beer Coil Cleaner: Afshin Mansfield MD RBC (Bld) [#/Vol] 4.25 10*6/uL Normal 4.21-5.77 [facility] Comment on above: Performed By: #### DALE KINNEY, CDP #### [facility] [address] [place] [address] [phone] Beer Coil Cleaner: Afshin Mansfield MD WBC (Bld) [#/Vol] 11.0 10*3/uL Normal 3.5-11.3 [facility] Comment on above: Performed By: #### I DALE REYES, CDP #### [facility] [address] [place] [address] [phone] Beer Coil Cleaner: Afshin Mansfield MD Cult,Bloodon 12-03-2021 Cult,Blood Specimen Description .BLOOD Special Requests L HAND 20ML Culture NO GROWTH 5 DAYS Report Status FINAL 12/03/2021 Normal [facility] Comment on above: Performed By: #### B C #### [facility] [address] [place] [address] Beer Coil Cleaner: Afshin Mansfield MD Cult,Blood Specimen Description .BLOOD Special Requests r hand 20ml Culture NO GROWTH 5 DAYS Report Status FINAL 12/03/2021 Normal [facility] Comment on above: Performed By: #### I OCAL, BMP, CDP #### [facility] [address] [place], [place] [phone] Beer Coil Cleaner: Afshin Mansfield MD Culture, Blood 1on 2 Bacteria identified Cx Nom (Unsp spec) NO GROWTH 5 DAYS [facility] Special Requests L HAND 20ML [facility] Specimen Description .BLOOD [facility] Bacteria identified Cx Nom (Unsp spec) NO GROWTH 5 DAYS [facility] SEC[facility] Special Requests r hand 20ml [facility] Specimen Description .BLOOD [facility] SECP[facility] EKG 12 LeadOrdered By: Unkno wn Result on 12-03-2021 Atrial Rate 90 BPM [facility] SECPing[facility] Q-T Interval 422 ms [facility] QRS Duration 88 ms [facility]ITAL[facility] Medical QTc Calculation (Bazett) 516 ms [facility] HEALTH R Crary 23 degrees [facility] SECEventBuilder HEALTH T Crary 48 degrees [facility] SECPingify International Ventricular Rate 90 BPM [facility]ITAL[facility]ALTH EKG 12 Leadon 12-03-2021 Atrial flutter with variable block Premature supraventricular complexes and fusion complexes Low voltage QRS Inferior 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) Prolonged QT Abnormal ECG When compared with ECG of 02-DEC-2021 03:02, Junctional rhythm has replaced Atrial fibrillation ST no longer depressed in Inferior leads ST no longer depressed in Anterior leads [facility] STV MUSE Result, Unknown Provider - 12/03/2021 Atrial flutter with variable block Premature supraventricular complexes and fusion complexes Low voltage QRS Inferior 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) Prolonged QT Abnormal ECG When compared with ECG of 02-DEC-2021 03:02, Junctional rhythm has replaced Atrial fibrillation ST no longer depressed in Inferior leads ST no longer depressed in Anterior leads [facility] [employer] Work Phone: Osmolality, Urineon 12-04-19 22 Osmolality - Urine 670 mOsm/kg Normal 80-1300 [facility] Comment on above: Performed By: #### DALE KINNEY, CDP #### [facility] [address] [place] [address] Beer Coil Cleaner: Afshin Mansfield MD Osmolality, Ur 670 [facility] POC Glucose Fingerstickon Glucose [Mass/Vol] 151 mg/dL High 75 - 110 mg/dL [facility] Interpretation and review of laboratory results Abnormal [facility] Glucose [Mass/Vol] 172 mg/dL High 75 - 110 mg/dL [facility] Interpretation and review of laboratory results Abnormal [facility] Glucose [Mass/Vol] 160 mg/dL High 75 - 110 mg/dL [facility] Interpretation and review of laboratory results Abnormal [facility] SODIUM, URINE, RANDOMon 11-21 Sodium (U) [Moles/Vol] 154 mmol/L [facility] Comment on above: No normal range esta blished. [facility] Sodium, Random Uron 12-04-19 Sodium (U) [Moles/Vol] 154 mmol/L Normal [facility] Comment on above: Result Comment: No n ormal range established. Performed By: #### I DALE REYES, CDP #### [facility] [address] [place] [address] Beer Coil Cleaner: Afshin Mansfield MD EKG 12 LeadOrdered By: Huan Mayo on 12-02-2021 Atrial Rate 125 BPM [facility] [employer] Work Phone: Q-T Interval 322 ms [facility] Work Phone: QRS Duration 84 ms [facility] Work Phone: QTc Calculation (Bazett) 470 ms [facility] Work Phone: R Crary 14 degrees [facility] Work Phone: T Crary -59 degrees [facility] ho[facility] Work Phone: Ventricular Rate 128 BPM [facility] [employer] [facility] Work Phone: [facility] Work Phone: EKG 12 Leadon 12-02-2021 Atrial fibrillation with rapid ventricular response with premature ventricular or aberrantly conducted complexes Low voltage QRS 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) ACUTE AK / STEMI Consider right ventricular involvement in acute inferior infarct Abnormal ECG When compared with ECG of 02-DEC-2021 03:02, T wave inversion no longer evident in Inferior leads [facility] STV Huan Galo MD - 12/02/2021 Atrial fibrillation with rapid ventricular response with premature ventricular or aberrantly conducted complexes Low voltage QRS 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) ACUTE AK / STEMI Consider right ventricular involvement in acute inferior infarct Abnormal ECG When compared with ECG of 02-DEC-2021 03:02, T wave inversion no longer evident in Inferior leads [facility] Work Phone: Magnesiumon 12-02-2021 Magnesium [Mass/Vol] 2.0 mg/dL Normal 1.6-2.6 [facility] Comment on above: Performed By: #### I DALE REYES, CDP #### [facility] [address], [place] [id number] Beer Coil Cleaner: Afshin Mansfield MD Magnesium [Mass/Vol] 2.0 mg/dL 1.6 - 2 .6 mg/dL [facility] No Panel Informationon 12-02 [facility] ho[facility]be POC Glucose Fingerstickon Glucose [Mass/Vol] 164 mg/dL High 75 - 110 mg/dL [facility] Interpretation and review of laboratory results Abnormal [facility] Glucose [Mass/Vol] 220 mg/dL High 75 - 110 mg/dL [facility] Interpretation and review of laboratory results Abnormal [facility] Glucose [Mass/Vol] 197 mg/dL High 75 - 110 mg/dL [facility] Interpretation and review of laboratory results Abnormal [facility] Glucose [Mass/Vol] 188 mg/dL High 75 - 110 mg/dL [facility] Interpretation and review of laboratory results Abnormal [facility] Phosphoruson 12-02-2021 Phosphate [Mass/Vol] 2.8 mg/dL 2.5 - 4 .5 mg/dL [facility] Phosphorus, Inorg.on 022 Phosphorus, Inorg. 2.8 mg/dL Normal 2.5-4.5 [facility] Comment on above: Performed By: #### I DALE REYES, CDP #### [facility] [address] [place] [id number] Beer Coil Cleaner: Afshin Mansfield MD Troponinon 12-02-2021 Troponin, High Sens 15 ng/L Normal 0-22 [facility] Comment on above: Result Comment: High Sensitivity Troponin values cannot be compared with other Troponin methodologies. Patients with high levels of Biotin oral intake (i.e >5mg/day) may have falsely decreased Troponin levels. Samples collected within 8 hours of biotin intake may require additional information for diagnosis. Performed By: #### DALE KINNEY, CDP #### [facility] [address] [place] [address] Beer Coil Cleaner: Afshin Mansfield MD Troponin, High Sensitivity 15 ng/L 0 - 22 ng/L [facility] Comment on above: High Sensitivity Troponin values cannot be compared with other Troponin methodologies. Patients with high levels of Biotin oral intake (i.e >5mg/day) may have falsely decreased Troponin levels. Samples collected within 8 hours of biotin intake may require additional information for diagnosis. [facility]be Troponin, High Sens 15 ng/L Normal 0-22 [facility] Comment on above: Result Comment: High Sensitivity Troponin values cannot be compared with other Troponin methodologies. Patients with high levels of Biotin oral intake (i.e >5mg/day) may have falsely decreased Troponin levels. Samples collected within 8 hours of biotin intake may require additional information for diagnosis. Performed By: #### I OCAL, BMP, CDP #### [facility] [address] [place] [address] Beer Coil Cleaner: Afshin Mansfield MD Troponin, High Sensitivity 15 ng/L 0 - 22 ng/L [facility] [employer] Comment on above: High Sensitivity Troponin values cannot be compared with other Troponin methodologies. Patients with high levels of Biotin oral intake (i.e >5mg/day) may have falsely decreased Troponin levels. Samples collected within 8 hours of biotin intake may require additional information for diagnosis. [facility]be Basic Metabolic Panelon 11-21 Anion gap [Moles/Vol] 11 mmol/L 9 - 17 mmol/L [facility] Calcium [Mass/Vol] 8.1 mg/dL Low 8.6 - 10. 4 mg/dL [facility] Chloride [Moles/Vol] 102 mmol/L 98 - 10 7 mmol/L [facility] CO2 [Moles/Vol] 19 mmol/L Low 20 - 31 mmol/L [facility] Creatinine [Mass/Vol] 0.76 mg/dL 0.7 - 1.2 mg/dL [facility] GFR >60 60 - PI NF mL/min [email or web address] [facility] GFR Non- >60 60 - PINF mL/min [email or web address] [facility] GFR/1.73 sq M.predicted MDRD (S/P/Bld) [Vol rate/Area] [facility] Comment on above: Average GFR for 70 o r more years old: 75 mL/min/1.73sq m Chronic Kidney Disease: <60 mL/min/1.73sq m Kidney failure: <15 mL/min/1.73sq m eGFR calculated using average adult body mass. Additional eGFR calculator available at: http://www.Therapydia/multiple_crcl_2012.htm Glucose [Mass/Vol] 176 mg/dL High 70 - 99 mg/dL [facility] Interpretation and review of laboratory results Abnormal [facility] Potassium [Moles/Vol] 4.2 mmol/L 3.7 - 5.3 mmol/L [facility] Sodium [Moles/Vol] 132 mmol/L Low 135 - 144 mmol/L [facility] Urea nitrogen (BldV) [Mass/Vol] 16 mg/dL 8 - 23 mg/dL [facility] Basic Metabolic Profon 12-01 (cont.) Normal [facility] Comment on above: Result Comment: Aver age GFR for 70 or more years old: 75 mL/min/1.73sq m Chronic Kidney Disease: <60 mL/min/1.73sq m Kidney failure: <15 mL/min/1.73sq m eGFR calculated using average adult body mass. Additional eGFR calculator available at: http://www.Therapydia/multiple_crcl_2012.htm Performed By: #### C DP, BMP #### [facility] [address] [place] [address] Beer Coil Cleaner: Afshin Mansfield MD Anion gap [Moles/Vol] 11 mmol/L Normal 9-17 [facility] Comment on above: Performed By: #### C DP, BMP #### [facility] [address] [place] [id number] Beer Coil Cleaner: Afshin Mansfield MD Calcium [Mass/Vol] 8.1 mg/dL Low 8.6-10.4 [facility] Comment on above: Performed By: #### C DP, BMP #### [facility] [address] [place] [id number] Beer Coil Cleaner: Afshin Mansfield MD Chloride [Moles/Vol] 102 mmol/L Normal 98-107 [facility] Comment on above: Performed By: #### C DP, BMP #### [address] [address] Beer Coil Cleaner: Afshin Mansfield MD CO2 [Moles/Vol] 19 mmol/L Low 20-31 [facility] Comment on above: Performed By: #### C DP, BMP #### [address] [address] Beer Coil Cleaner: Afshin Mansfield MD Creatinine [Mass/Vol] 0.76 mg/dL Normal 0.70-1.20 [facility] Comment on above: Performed By: #### C DP, BMP #### [address] [address] Beer Coil Cleaner: Afshin Mansfield MD GFR, Amer >60 Normal >60 [facility] Comment on above: Performed By: #### C DP, BMP #### [address] [address] Beer Coil Cleaner: Afshin Mansfield MD GFR,non Amer >60 Normal >60 [facility] Comment on above: Performed By: #### C DP, BMP #### [address] [address] Beer Coil Cleaner: Afshin Mansfield MD Glucose [Mass/Vol] 176 mg/dL High 70-99 [facility] Comment on above: Performed By: #### C DP, BMP #### [facility] [address] [place] [address] Beer Coil Cleaner: Afshin Mansfield MD Potassium [Moles/Vol] 4.2 mmol/L Normal 3.7-5.3 [facility] Comment on above: Performed By: #### C DP, BMP #### [address] [address] Beer Coil Cleaner: Afshin Mansfield MD Sodium [Moles/Vol] 132 mmol/L Low 135-144 [facility] Comment on above: Performed By: #### C DP, BMP #### [facility] [address] [place], [place] [phone] Beer Coil Cleaner: Afshin Mansfield MD Urea nitrogen [Mass/Vol] 16 mg/dL Normal 8-23 [facility] Comment on above: Performed By: #### C DP, BMP #### [facility] [address] [place], [place] [phone] Beer Coil Cleaner: Afshin Mansfield MD CBC with Auto Differentialon 12-01-2021 Absolute Eos # 0.00 [facility] Absolute Immature Granulocyte 0.00 [facility] Absolute Lymph # 1.35 [facility] Absolute [place] # 1.80 High [facility] Basophils (Bld) [#/Vol] 0.00 10*3/uL [facility] Basophils/100 WBC (Bld) 0 % 0 - 2 % [facility] Eosinophils/100 WBC (Bld) 0 % Low 1 - 4 % [facility] Hematocrit (Bld) [Volume fraction] 45.2 % 40.7 - 50.3 % [facility] Hemoglobin (Bld) [Mass/Vol] 15.6 g/dL 13 - 17 g/dL [facility] Immature granulocytes/100 WBC (Bld) 0 % 0 [facility] Interpretation and review of laboratory results Abnormal [facility] Lymphocytes/100 WBC (Bld) 9 % Low 24 - 44 % [facility] MCH (RBC) [Entitic mass] 30.5 pg 25.2 - 33.5 pg [facility] MCHC (RBC) [Mass/Vol] 34.5 g/dL 28.4 - 34.8 g/dL [facility] MCV (RBC) [Entitic vol] 88.5 fL 82.6 - 102.9 fL [facility] Monocytes/100 WBC (Bld) 12 % High 1 - 7 % [facility] Morphology Callum (Bld) [Interp] Normal [facility] NRBC Automated 0.0 0.0 per 100 WBC [facility] Platelet distribution width (Bld) [Ratio] 13.8 % 11.8 - 14.4 % [facility] Platelet mean volume (Bld) [Entitic vol] 9.6 fL 8.1 - 13.5 fL [facility] Platelets (Bld) [#/Vol] 235 10*3/uL [facility] RBC (Bld) [#/Vol] 5.11 10*6/uL 4.21 - 5.7 7 m/uL [facility] Segmented neutrophils/100 WBC (Bld) 79 % High 36 - 66 % [facility] Segs Absolute 11.85 High [facility] WBC (Bld) [#/Vol] 15.0 10*3/uL High [facility] CBC with Diffon 12-01-2021 Abs. Basophil 0.00 k/uL Normal 0.0-0.2 [facility] Comment on above: Performed By: #### C DP, BMP #### [place] [address] Beer Coil Cleaner: Afshin Mansfield MD Abs.Imm.Granulocyte 0.00 k/uL Normal 0.00-0.30 [facility] Comment on above: Performed By: #### C DP, BMP #### [facility] [address] [place], [place] [phone] Beer Coil Cleaner: Afshin Mansfield MD Abs.Neutrophil (Seg) 11.85 k/uL High 1.8-7.7 [facility] Comment on above: Performed By: #### C DP, BMP #### [facility] [address] [place] [address] Beer Coil Cleaner: Afshin Mansfield MD Basophils/100 WBC (Bld) 0 % Normal 0-2 [facility] Comment on above: Performed By: #### C DP, BMP #### [facility] [address] Beer Coil Cleaner: Afshin Mansfield MD Eosinophils (Bld) [#/Vol] 0.00 10*3/uL Normal 0.0-0.4 [facility] Comment on above: Performed By: #### C DP, BMP #### [address] [address] Beer Coil Cleaner: Afshin Mansfield MD Eosinophils/100 WBC (Bld) 0 % Low 1-4 [facility] Comment on above: Performed By: #### C DP, BMP #### [address] [address] Beer Coil Cleaner: Afshin Mansfield MD Immature granulocytes/100 WBC (Bld) 0 % Normal 0 [facility] Comment on above: Performed By: #### C DP, BMP #### [address] [address] Beer Coil Cleaner: Afshin Mansfield MD Lymphocytes (Bld) [#/Vol] 1.35 10*3/uL Normal 1.0-4.8 [facility] Comment on above: Performed By: #### C DP, BMP #### [address] [address] Beer Coil Cleaner: Afshin Mansfield MD Lymphocytes/100 WBC (Bld) 9 % Low 24-44 [facility] Comment on above: Performed By: #### C DP, BMP #### [address] [address] Beer Coil Cleaner: Afshin Mansfield MD Monocytes (Bld) [#/Vol] 1.80 10*3/uL High 0.1-0.8 [facility] Comment on above: Performed By: #### C DP, BMP #### [facility] [address] [place] [address] Beer Coil Cleaner: Afshin Mansfield MD Monocytes/100 WBC (Bld) 12 % High 1-7 [facility] Comment on above: Performed By: #### C DP, BMP #### [facility] [address] [place] [address] Beer Coil Cleaner: Afshin Mansfield MD Morphology Callum (Bld) [Interp] Normal Normal [facility] Comment on above: Performed By: #### C DP, BMP #### [address] [address] Beer Coil Cleaner: Afshin Mansfield MD Neutrophil (Seg) 79 % High 36-66 [facility] Comment on above: Performed By: #### C DP, BMP #### [facility] [address] [place] [address] Beer Coil Cleaner: Afshin Mansfield MD Erythrocyte distribution width (RBC) [Ratio] 13.8 % Normal 11.8-14.4 [facility] Comment on above: Performed By: #### C DP, BMP #### [address] [address] Beer Coil Cleaner: Afshin Mansfield MD Hematocrit (Bld) [Volume fraction] 45.2 % Normal 40.7-50.3 [facility] Comment on above: Performed By: #### C DP, BMP #### [address] [address] Beer Coil Cleaner: Afshin Mansfield MD Hemoglobin (Bld) [Mass/Vol] 15.6 g/dL Normal 13.0-17.0 [facility] Comment on above: Performed By: #### C DP, BMP #### [facility] [address] [place] [address] Beer Coil Cleaner: Afshin Mansfield MD MCH (RBC) [Entitic mass] 30.5 pg Normal 25.2-33.5 [facility] Comment on above: Performed By: #### C DP, BMP #### [address] [address] Beer Coil Cleaner: Afshin Mansfield MD MCHC (RBC) [Mass/Vol] 34.5 g/dL Normal 28.4-34.8 [facility] Comment on above: Performed By: #### C DP, BMP #### [address] [address] Beer Coil Cleaner: Afshin Mansfield MD MCV (RBC) [Entitic vol] 88.5 fL Normal 82.6-102.9 [facility] Comment on above: Performed By: #### C DP, BMP #### [address] [address] Beer Coil Cleaner: Afshin Mansfield MD NRBC Automated 0.0 per 100 WBC Normal 0.0 [facility] Comment on above: Performed By: #### C DP, BMP #### [address] [address] Beer Coil Cleaner: Afshin Mansfield MD Platelet mean volume (Bld) [Entitic vol] 9.6 fL Normal 8.1-13.5 [facility] Comment on above: Performed By: #### C DP, BMP #### [address] [address] Beer Coil Cleaner: Afshin Mansfield MD Platelets (Bld) [#/Vol] 235 10*3/uL Normal 138-453 [facility] Comment on above: Performed By: #### C DP, BMP #### [address] [address] Beer Coil Cleaner: Afshin Mansfield MD RBC (Bld) [#/Vol] 5.11 10*6/uL Normal 4.21-5.77 [facility] Comment on above: Performed By: #### C DP, BMP #### [address] [address] Beer Coil Cleaner: Afshin Mansfield MD WBC (Bld) [#/Vol] 15.0 10*3/uL High 3.5-11.3 [facility] Comment on above: Performed By: #### C DP, BMP #### [facility] [address] [place] [address] Beer Coil Cleaner: Afshin Mansfield MD ECHO Complete 2D W Doppler W Coloron 12-01-2021 Transthoracic Echocardiography Report (TTE) Patient Name EDGAR Date of Study 11/30/2021 SHAHRZAD Date of 1945 Gender Male Age 76 year(s) Race Room Number 0122 Height: 73 inch, 185.42 cm Corporate ID [id number] Weight: 207 pounds, 93.9 kg # Patient Acct [id number] BSA: 2.18 m^2 BMI: 27.31 # kg/m^2 MR # [id number] Quality Control Associate Rosmery Walsh Interpreting Physician Vicki Rob Fellow Referring Nurse Practitioner Interpreting Referring Physician Yolie Cabrera Fellow Type of Study TTE procedure:2D Echocardiogram, M-Mode, Doppler, Color Doppler, Bubble Study. Procedure Date Date: 11/30/2021 Start: 02:35 PM Study Location: [facility] Technical Quality: Adequate visualization Indications:Stroke. History / Tech. Comments: Echo done at patient bedside. Procedure explained to patient. Patient Status: Inpatient Height: 73 inches Weight: 207 pounds BSA: 2.18 m^2 BMI: 27.31 kg/m^2 CONCLUSIONS Summary Left ventricle is normal in size. Global left ventricular systolic function is normal. Calculated ejection fraction 54% by Escobar's method. Negative bubble study, no shunt noted. No significant valvular abnormalities. Signature FINDINGS Left Atrium Left atrium is normal in size. Negative bubble study, no shunt noted. Left Ventricle Left ventricle is normal in size. Global left ventricular systolic function is normal. Calculated ejection fraction 54% by Escobar's method. Right Atrium Right atrium is normal in size. Right Ventricle Normal right ventricular size and function. TAPSE value of 2.08cm noted. Mitral Valve Thickened mitral valve leaflets. No mitral regurgitation. Aortic Valve Aortic valve is trileaflet. Aortic valve is mildly sclerotic but opens well. No aortic insufficiency. Tricuspid Valve Normal tricuspid valve structure and function. No tricuspid regurgitation. Pulmonic Valve Pulmonic valve not well visualized but Doppler velocities are normal. No pulmonic insufficiency. Pericardial Effusion Anterior echo free space suggestive of adipose tissue is seen. Miscellaneous E/E' average = 9.1. IVC normal diameter & inspiratory collapse indicating normal RA filling pressure . M-mode / 2D Measurements & Calculations: LVIDd:3.5 cm(3.7 - 5.6 cm) Diastolic Volume:26.7 ml LVIDs:2.4 cm(2.2 - 4.0 cm) Systolic Volume:12.1 ml IVSd:0.9 cm(0.6 - 1.1 cm) Aortic Root:3.2 cm(2.0 - 3.7 cm) LVPWd:1 cm(0.6 - 1.1 cm) LA Dimension: 3.1 cm(1.9 - 4.0 cm) Fractional Shortenin.43 % LA volume/Index: 35.7 ml /16m^2 Calculated LVEF (%): 54.68 % LVOT:1.9 cm RVDd:2.3 cm Mitral: Aortic Valve Area (P1/2-Time): 3.73 cm^2 Peak Velocity: 1.15 m/s Peak E-Wave: 0.91 m/s Mean Velocity: 0.76 m/s Peak Gradient: 5.29 mmHg Peak Gradient: 3.33 mmHg Mean Gradient: 3 mmHg Mean Gradient: 2 mmHg Deceleration Time: 202 msec P1/2t: 59 msec Area (continuity): 1.8 cm^2 AV VTI: 19.5 cm Area (continuity): 1.49 cm^2 Mean Velocity: 0.56 m/s Pulmonic: Peak Velocity: 0.77 m/s Peak Gradient: 2.4 mmHg Diastology / Tissue Doppler Septal Wall E' velocity:0.08 m/s Septal Wall E/E':10.8 Lateral Wall E' velocity:0.12 m/s Lateral Wall E/E':7.5 [facility] STV CPA Vicki Rob MD - 12/01/2021 Transthoracic Echocardiography Report (TTE) Patient Name EDGAR Date of Study 11/30/2021 SHAHRZAD Date of 1945 Gender Male Age 76 year(s) Race Room Number 0122 Height: 73 inch, 185.42 cm Corporate ID [id number] Weight: 207 pounds, 93.9 kg # Patient Acct [id number] BSA: 2.18 m^2 BMI: 27.31 # kg/m^2 MR # [id number] Quality Control Associate Rosmery Walsh Interpreting Physician Vicki Rob Fellow Referring Nurse Practitioner Interpreting Referring Physician Yolie Cabrera Fellow Type of Study TTE procedure:2D Echocardiogram, M-Mode, Doppler, Color Doppler, Bubble Study. Procedure Date Date: 11/30/2021 Start: 02:35 PM Study Location: [facility] Technical Quality: Adequate visualization Indications:Stroke. History / Tech. Comments: Echo done at patient bedside. Procedure explained to patient. Patient Status: Inpatient Height: 73 inches Weight: 207 pounds BSA: 2.18 m^2 BMI: 27.31 kg/m^2 CONCLUSIONS Summary Left ventricle is normal in size. Global left ventricular systolic function is normal. Calculated ejection fraction 54% by Escobar's method. Negative bubble study, no shunt noted. No significant valvular abnormalities. Signature - - - - FINDINGS Left Atrium Left atrium is normal in size. Negative bubble study, no shunt noted. Left Ventricle Left ventricle is normal in size. Global left ventricular systolic function is normal. Calculated ejection fraction 54% by Escobar's method. Right Atrium Right atrium is normal in size. Right Ventricle Normal right ventricular size and function. TAPSE value of 2.08cm noted. Mitral Valve Thickened mitral valve leaflets. No mitral regurgitation. Aortic Valve Aortic valve is trileaflet. Aortic valve is mildly sclerotic but opens well. No aortic insufficiency. Tricuspid Valve Normal tricuspid valve structure and function. No tricuspid regurgitation. Pulmonic Valve Pulmonic valve not well visualized but Doppler velocities are normal. No pulmonic insufficiency. Pericardial Effusion Anterior echo free space suggestive of adipose tissue is seen. Miscellaneous E/E' average = 9.1. IVC normal diameter & inspiratory collapse indicating normal RA filling pressure . M-mode / 2D Measurements & Calculations: LVIDd:3.5 cm(3.7 - 5.6 cm) Diastolic Volume:26.7 ml LVIDs:2.4 cm(2.2 - 4.0 cm) Systolic Volume:12.1 ml IVSd:0.9 cm(0.6 - 1.1 cm) Aortic Root:3.2 cm(2.0 - 3.7 cm) LVPWd:1 cm(0.6 - 1.1 cm) LA Dimension: 3.1 cm(1.9 - 4.0 cm) Fractional Shortenin.43 % LA volume/Index: 35.7 ml /16m^2 Calculated LVEF (%): 54.68 % LVOT:1.9 cm RVDd:2.3 cm Mitral: Aortic Valve Area (P1/2-Time): 3.73 cm^2 Peak Velocity: 1.15 m/s Peak E-Wave: 0.91 m/s Mean Velocity: 0.76 m/s Peak Gradient: 5.29 mmHg Peak Gradient: 3.33 mmHg Mean Gradient: 3 mmHg Mean Gradient: 2 mmHg Deceleration Time: 202 msec P1/2t: 59 msec Area (continuity): 1.8 cm^2 AV VTI: 19.5 cm Area (continuity): 1.49 cm^2 Mean Velocity: 0.56 m/s Pulmonic: Peak Velocity: 0.77 m/s Peak Gradient: 2.4 mmHg Diastology / Tissue Doppler Septal Wall E' velocity:0.08 m/s Septal Wall E/E':10.8 Lateral Wall E' velocity:0.12 m/s Lateral Wall E/E':7.5 [facility] [employer] Work Phone: [facility] Work Phone: POC Glucose Fingerstickon Glucose [Mass/Vol] 132 mg/dL High 75 - 110 mg/dL [facility] Interpretation and review of laboratory results Abnormal [facility] Glucose [Mass/Vol] 129 mg/dL High 75 - 110 mg/dL [facility] Interpretation and review of laboratory results Abnormal [facility] Glucose [Mass/Vol] 369 mg/dL High 75 - 110 mg/dL [facility] Interpretation and review of laboratory results Abnormal [facility] Glucose [Mass/Vol] 196 mg/dL High 75 - 110 mg/dL [facility] Interpretation and review of laboratory results Abnormal [facility] Glucose [Mass/Vol] 181 mg/dL High 75 - 110 mg/dL [facility] Interpretation and review of laboratory results Abnormal [facility] Urinalysis w/ Microon 2021 Bilirubin, SemiQt,Ur Negative Normal NEG [facility] Comment on above: Performed By: #### U AMIC #### [facility] [address] [place] [phone] Beer Coil Cleaner: Afshin Mansfield MD Blood, Urine LARGE Abnormal NEG [facility] Comment on above: Performed By: #### U AMIC #### [facility] [address] [place] [address] [phone] Beer Coil Cleaner: Afshin Mansfield MD Casts 2 TO 5 HYALINE Normal 0-8 [facility] Comment on above: Result Comment: Refe rence range defined for non-centrifuged specimen. Performed By: #### U AMIC #### [facility] [address] [place] [address] [phone] Beer Coil Cleaner: Afshin Mansfield MD Clarity (U) Clear Normal CLEAR [facility] Comment on above: Performed By: #### U AMIC #### [address] [address] Beer Coil Cleaner: Afshin Mansfield MD Color (U) Yellow Normal YEL [facility] Comment on above: Performed By: #### U AMIC #### [address] [address] Beer Coil Cleaner: Afshin Mansfield MD Epithelial cells LM Ql (Urine sed) 0 TO 2 Normal 0-5 [facility] Comment on above: Performed By: #### U AMIC #### [address] [address] Beer Coil Cleaner: Afshin Mansfield MD Glucose Ql (U) Negative Normal NEG [facility] Comment on above: Performed By: #### U AMIC #### [address] [address] Beer Coil Cleaner: Afshin Mansfield MD Ketones Ql (U) TRACE Abnormal NEG [facility] Comment on above: Performed By: #### U AMIC #### [address] [address] Beer Coil Cleaner: Afshin Mansfield MD Leukocyte esterase Test strip Ql (U) Negative Normal NEG [facility] Comment on above: Performed By: #### U AMIC #### [address] [address] Beer Coil Cleaner: Afshin Mansfield MD Nitrite,Ur Negative Normal NEG [facility] Comment on above: Performed By: #### U AMIC #### [address] [address] Beer Coil Cleaner: Afshin Mansfield MD PH,Ur 5.5 Normal 5.0-8.0 [facility] Comment on above: Performed By: #### U AMIC #### [address] [address] Beer Coil Cleaner: Afshin Mansfield MD Protein Ql (U) TRACE Abnormal NEG [facility] Comment on above: Performed By: #### U AMIC #### [address] [address] Beer Coil Cleaner: Afshin Mansfield MD Spec. [place],Ur 1.031 High 1.005-1.030 [facility] Comment on above: Performed By: #### U AMIC #### [address] [address] Beer Coil Cleaner: Afshin Mansfield MD Urine RBC's 20 TO 50 Normal 0-4 [facility] Comment on above: Result Comment: Refe rence range defined for non-centrifuged specimen. Performed By: #### U AMIC #### [address] [address] Beer Coil Cleaner: Afshin Mansfield MD Urine WBC's 2 TO 5 Normal 0-5 [facility] Comment on above: Performed By: #### U AMIC #### [address] [address] Beer Coil Cleaner: Afshin Mansfield MD Urobilinogen,Ur Normal Normal NORM [facility] Comment on above: Performed By: #### U AMIC #### [address] [address] Beer Coil Cleaner: Afshin Mansfield MD Urinalysis with Microscopico n 12-01-2021 Bilirubin Urine Negative NEGATIVE [facility] Casts UA 2 TO 5 HYALINE Reference range defined for non-centrifuged specimen. [facility] Color, UA Yellow Yellow [facility] Epithelial Cells UA 0 TO 2 [facility] Glucose, Ur Negative NEGATIVE [facility] Interpretation and review of laboratory results Abnormal [facility] Ketones Ql (U) TRACE Abnormal NEGATIVE [facility] Leukocyte esterase Test strip Ql (U) Negative NEGATIVE [facility] Nitrite, Urine Negative NEGATIVE [facility] pH, UA 5.5 5 - 8 [facility] Protein, UA TRACE Abnormal NEGATIVE [facility] RBC, UA 20 TO 50 [facility] Comment on above: Reference range defi alisha for non-centrifuged specimen. Specific [place], UA 1.031 High 1.005 - 1.03 ULISES N [facility] Turbidity UA Clear Clear [facility] Urine Hgb LARGE Abnormal NEGATIVE [facility] Urobilinogen, Urine Normal Normal [facility] WBC, UA 2 TO 5 [facility] Basic Metabolic Panelon 09- Anion gap [Moles/Vol] 11 mmol/L 9 - 17 mmol/L [facility] Calcium [Mass/Vol] 7.7 mg/dL Low 8.6 - 10. 4 mg/dL [facility] Chloride [Moles/Vol] 102 mmol/L 98 - 10 7 mmol/L [facility] CO2 [Moles/Vol] 21 mmol/L 20 - 31 mmol/L [facility] Creatinine [Mass/Vol] 0.79 mg/dL 0.7 - 1.2 mg/dL [facility] GFR >60 60 - PI NF mL/min [facility] GFR Non- >60 60 - PINF mL/min [facility] GFR/1.73 sq M.predicted MDRD (S/P/Bld) [Vol rate/Area] [facility] Comment on above: Average GFR for 70 o r more years old: 75 mL/min/1.73sq m Chronic Kidney Disease: <60 mL/min/1.73sq m Kidney failure: <15 mL/min/1.73sq m eGFR calculated using average adult body mass. Additional eGFR calculator available at: http://www.[employer].Ixchelsis/multiple_crcl_2011.htm Glucose [Mass/Vol] 196 mg/dL High 70 - 99 mg/dL [facility] Interpretation and review of laboratory results Abnormal [facility] Potassium [Moles/Vol] 4.5 mmol/L 3.7 - 5.3 mmol/L [facility] Sodium [Moles/Vol] 134 mmol/L Low 135 - 144 mmol/L [facility] Urea nitrogen (BldV) [Mass/Vol] 17 mg/dL 8 - 23 mg/dL [facility] Basic Metabolic Profon 11-30 Glucose [Mass/Vol] 196 mg/dL High 70-99 [facility] Comment on above: Performed By: #### C DAVEY HOLLINGSWORTH BMP #### [facility] [address] [place] [address] [phone] Beer Coil Cleaner: Afshin Mansfield MD (cont.) [facility] Comment on above: Result Comment: Aver age GFR for 70 or more years old: 75 mL/min/1.73sq m Chronic Kidney Disease: <60 mL/min/1.73sq m Kidney failure: <15 mL/min/1.73sq m eGFR calculated using average adult body mass. Additional eGFR calculator available at: http://www.Therapydia/multiple_crcl_2011.htm Performed By: #### DAVEY PICHARDO BMP #### [facility] [address] [place] [address] [phone] Beer Coil Cleaner: Afshin Mansfield MD Anion gap [Moles/Vol] 11 mmol/L Normal 9-17 [facility] Comment on above: Performed By: #### C DARRICK GLYHGB, BMP #### [facility] [address] [place] [address] [phone] Beer Coil Cleaner: Afshin Mansfield MD Calcium [Mass/Vol] 7.7 mg/dL Low 8.6-10.4 [facility] Comment on above: Performed By: #### C DARRICK GLYHGB, BMP #### [facility] [address] [place] [address] [place] [address] Beer Coil Cleaner: Afshin Mansfield MD Chloride [Moles/Vol] 102 mmol/L Normal 98-107 [facility] Comment on above: Performed By: #### C BC, GLYHGB, BMP #### [facility] [address] [place] [phone] Beer Coil Cleaner: Afshin Mansfield MD CO2 [Moles/Vol] 21 mmol/L Normal 20-31 [facility] Comment on above: Performed By: #### C BC, GLYHGB, BMP #### [facility] [address] [place] [address] 8[address]78 Beer Coil Cleaner: Afshin Mansfield MD Creatinine [Mass/Vol] 0.79 mg/dL Normal 0.70-1.20 [facility] Comment on above: Performed By: #### C BC, GLYHGB, BMP #### [facility] [address] [place] [address] 264[address] Beer Coil Cleaner: Afshin Mansfield MD GFR, Amer >60 Normal >60 [facility] Comment on above: Performed By: #### C BC, GLYHGB, BMP #### [facility] [address] [place] [phone] Beer Coil Cleaner: Afshin Mansfield MD GFR,non Amer >60 Normal >60 [facility] Comment on above: Performed By: #### C BC, GLYHGB, BMP #### [facility] [address] [place] [address] Beer Coil Cleaner: Afshin Mansfield MD Potassium [Moles/Vol] 4.5 mmol/L Normal 3.7-5.3 [facility] Comment on above: Performed By: #### C BC, GLYHGB, BMP #### [facility] [address] [place] [address] Beer Coil Cleaner: Afshin Mansfiled MD Sodium [Moles/Vol] 134 mmol/L Low 135-144 [facility] Comment on above: Performed By: #### C DAVEY HOLLINGSWORTH BMP #### [facility] [address] [place], [place] [phone] Beer Coil Cleaner: Afshin Mansfield MD Urea nitrogen [Mass/Vol] 17 mg/dL Normal 8-23 [facility] Comment on above: Performed By: #### C DARRICK GLYHGB, BMP #### [facility] [address] [place], [place] [phone] Beer Coil Cleaner: Afshin Mansfield MD CBC with Auto Differentialon 11-30-2021 Absolute Eos # [facility] Absolute Immature Granulocyte 0.12 [facility] Absolute Lymph # 1.09 Low [facility] Absolute [place] # 1.40 High [facility] Basophils Absolute [facility] Basophils/100 WBC (Bld) 0 % 0 - 2 % [facility] Eosinophils/100 WBC (Bld) 0 % Low 1 - 4 % [facility] Hematocrit (Bld) [Volume fraction] 41.7 % 40.7 - 50.3 % [facility] Hemoglobin (Bld) [Mass/Vol] 13.9 g/dL 13 - 17 g/dL [facility] Immature granulocytes/100 WBC (Bld) 1 % High 0 [facility] Interpretation and review of laboratory results Abnormal [facility] Lymphocytes/100 WBC (Bld) 8 % Low 24 - 43 % [facility] MCH (RBC) [Entitic mass] 29.6 pg 25.2 - 33.5 pg [facility] MCHC (RBC) [Mass/Vol] 33.3 g/dL 28.4 - 34.8 g/dL [facility] MCV (RBC) [Entitic vol] 88.7 fL 82.6 - 102.9 fL [facility] Monocytes/100 WBC (Bld) 10 % 3 - 12 % [facility] NRBC Automated 0.0 0.0 per 100 WBC [facility] Platelet distribution width (Bld) [Ratio] 14.0 % 11.8 - 14.4 % [facility] Platelet mean volume (Bld) [Entitic vol] 10.2 fL 8.1 - 13.5 fL [facility] Platelets (Bld) [#/Vol] 230 10*3/uL [facility] RBC (Bld) [#/Vol] 4.70 10*6/uL 4.21 - 5.7 7 m/uL [facility] Segmented neutrophils/100 WBC (Bld) 81 % High 36 - 65 % [facility] Segs Absolute 11.07 High [facility] WBC (Bld) [#/Vol] 13.7 10*3/uL High [facility] CBC with Diffon 11-30-2021 Abs. Basophil <0.03 Normal 0.00-0.20 [facility] Comment on above: Performed By: #### C ALEKSEY HOLLINGSWORTHB, BMP #### [facility] [address] [place] [address] Beer Coil Cleaner: Afshin Mansfield MD Abs. Eosinophil <0.03 Normal 0.00-0.44 [facility] Comment on above: Performed By: #### C DAVEY HOLLINGSWORTH, BMP #### [facility] [address] [place] [address] Beer Coil Cleaner: Afshin Mansfield MD Abs.Imm.Granulocyte 0.12 k/uL Normal 0.00-0.30 [facility] Comment on above: Performed By: #### C LÓPEZ HOLLINGSWORTHHGB, BMP #### [facility] [address] [place] [address] Beer Coil Cleaner: Afshin Mansfield MD Abs.Neutrophil (Seg) 11.07 k/uL High 1.50-8.10 [facility] Comment on above: Performed By: #### LÓPEZ PICHARDOHGB, BMP #### [facility] [address] [place] [phone] Beer Coil Cleaner: Afshin Mansfield MD Basophils/100 WBC (Bld) 0 % Normal 0-2 [facility] Comment on above: Performed By: #### C BC, GLYHGB, BMP #### [facility] [address] [place] [address]208 Beer Coil Cleaner: Afshin Mansfield MD Eosinophils/100 WBC (Bld) 0 % Low 1-4 [facility] Comment on above: Performed By: #### C BC, GLYHGB, BMP #### [facility] [address] [place] [address]86 Beer Coil Cleaner: Afshin Mansfield MD Erythrocyte distribution width (RBC) [Ratio] 14.0 % Normal 11.8-14.4 [facility] Comment on above: Performed By: #### C BC, GLYHGB, BMP #### [facility] [address] [place] [phone] Beer Coil Cleaner: Afshin Mansfield MD Hematocrit (Bld) [Volume fraction] 41.7 % Normal 40.7-50.3 [facility] Comment on above: Performed By: #### C BC, GLYHGB, BMP #### [facility] [address] [place] [phone] Beer Coil Cleaner: Afshin Mansfield MD Hemoglobin (Bld) [Mass/Vol] 13.9 g/dL Normal 13.0-17.0 [facility] Comment on above: Performed By: #### C BC, GLYHGB, BMP #### [facility] [address] [place] [address] Beer Coil Cleaner: Afshin Mansfield MD Immature granulocytes/100 WBC (Bld) 1 % High 0 [facility] Comment on above: Performed By: #### C BC, GLYHGB, BMP #### [facility] [address] [place] [address]35 Beer Coil Cleaner: Afshin Mansfield MD Lymphocytes (Bld) [#/Vol] 1.09 10*3/uL Low 1.10-3.70 [facility] Comment on above: Performed By: #### C DARRICK GLYHGB, BMP #### [address] [address] Beer Coil Cleaner: Afshin Mansfield MD Lymphocytes/100 WBC (Bld) 8 % Low 24-43 [facility] Comment on above: Performed By: #### C DARRICK GLYHGB, BMP #### [facility] [address] [place] [address] Beer Coil Cleaner: Afshin Mansfield MD MCH (RBC) [Entitic mass] 29.6 pg Normal 25.2-33.5 [facility] Comment on above: Performed By: #### Amara HOLLINGSWORTH GLYHGB, BMP #### [address] [address] Beer Coil Cleaner: Afshin Mansfield MD MCHC (RBC) [Mass/Vol] 33.3 g/dL Normal 28.4-34.8 [facility] Comment on above: Performed By: #### Amara HOLLINGSWORTH GLYHGB, BMP #### [facility] [address] [place] [address] Beer Coil Cleaner: Afshin Mansfield MD MCV (RBC) [Entitic vol] 88.7 fL Normal 82.6-102.9 [facility] Comment on above: Performed By: #### C DARRICK GLYHGB, BMP #### [facility] [address] [place] [address]65 Beer Coil Cleaner: Afshin Mansfield MD Monocytes (Bld) [#/Vol] 1.40 10*3/uL High 0.10-1.20 [facility] Comment on above: Performed By: #### Amara HOLLINGSWORTH GLYHGB, BMP #### [facility] [address] [place] [address]16 Beer Coil Cleaner: Afshin Mansfield MD Monocytes/100 WBC (Bld) 10 % Normal 3-12 [facility] Comment on above: Performed By: #### C BC, GLYHGB, BMP #### [address] [address] Beer Coil Cleaner: Afshin Mansfield MD Neutrophil (Seg) 81 % High 36-65 [facility] Comment on above: Performed By: #### C BC, GLYHGB, BMP #### [facility] [address] [place] [address]997 Beer Coil Cleaner: Afshin Mansfield MD NRBC Automated 0.0 per 100 WBC Normal 0.0 [facility] Comment on above: Performed By: #### C BC, GLYHGB, BMP #### [facility] [address] [place] [address]72 Beer Coil Cleaner: Afshin Mansfield MD Platelet mean volume (Bld) [Entitic vol] 10.2 fL Normal 8.1-13.5 [facility] Comment on above: Performed By: #### C BC, GLYHGB, BMP #### [address] [address] Beer Coil Cleaner: Afshin Mansfield MD Platelets (Bld) [#/Vol] 230 10*3/uL Normal 138-453 [facility] Comment on above: Performed By: #### C BC, GLYHGB, BMP #### [facility] [address] [place] [address]31 Beer Coil Cleaner: Afshin Mansfield MD RBC (Bld) [#/Vol] 4.70 10*6/uL Normal 4.21-5.77 [facility] Comment on above: Performed By: #### C BC, GLYHGB, BMP #### [facility] [address] [place] [address] Beer Coil Cleaner: Afshin Mansfield MD WBC (Bld) [#/Vol] 13.7 10*3/uL High 3.5-11.3 [facility] Comment on above: Performed By: #### C BC, GLYHGB, [facility] #### [facility] [address] [place] [address] Beer Coil Cleaner: Afshin Mansfield MD EKG 12 LeadOrdered By: Constance Rob on 11-30-2021 Atrial Rate 65 BPM [employer] Work Phone: P Crary 77 degrees [employer] Work Phone: P-R Interval 172 ms [employer] Work Phone: Q-T Interval 462 ms [employer] Work Phone: QRS Duration 84 ms [employer] Work Phone: QTc Calculation (Bazett) 480 ms [employer] Work Phone: R Crary 27 degrees [employer] Work Phone: T Crary 53 degrees [employer] Work Phone: Ventricular Rate 65 BPM [facility] [employer] Work Phone: [employer] Work Phone: EKG 12 Leadon 11-30-2021 Normal sinus rhythm Low voltage QRS Inferior infarct , age undetermined Abnormal ECG No previous ECGs available [facility] Vicki Dash MD - 11/30/2021 Normal sinus rhythm Low voltage QRS Inferior infarct , age undetermined Abnormal ECG No previous ECGs available [employer] Work Phone: POC Glucose Fingerstickon Glucose [Mass/Vol] 160 mg/dL High 75 - 110 mg/dL [facility] Interpretation and review of laboratory results Abnormal [employer] Glucose [Mass/Vol] 181 mg/dL High 75 - 110 mg/dL [facility] Interpretation and review of laboratory results Abnormal [employer] Glucose [Mass/Vol] 182 mg/dL High 75 - 110 mg/dL [facility] Interpretation and review of laboratory results Abnormal [facility] Basic Metabolic Panelon Anion gap [Moles/Vol] 12 mmol/L 9 - 17 mmol/L [facility] Calcium [Mass/Vol] 8.3 mg/dL Low 8.6 - 10. 4 mg/dL [facility] Chloride [Moles/Vol] 101 mmol/L 98 - 10 7 mmol/L [facility] CO2 [Moles/Vol] 20 mmol/L 20 - 31 mmol/L [facility] Creatinine [Mass/Vol] 0.89 mg/dL 0.7 - 1.2 mg/dL [facility] GFR >60 60 - PI NF mL/min [facility] GFR Non- >60 60 - PINF mL/min [facility] GFR/1.73 sq M.predicted MDRD (S/P/Bld) [Vol rate/Area] [facility] Comment on above: Average GFR for 70 o r more years old: 75 mL/min/1.73sq m Chronic Kidney Disease: <60 mL/min/1.73sq m Kidney failure: <15 mL/min/1.73sq m eGFR calculated using average adult body mass. Additional eGFR calculator available at: http://www.Therapydia/multiple_crcl_2012.htm Glucose [Mass/Vol] 198 mg/dL High 70 - 99 mg/dL [facility] Interpretation and review of laboratory results Abnormal [facility] Potassium [Moles/Vol] 4.4 mmol/L 3.7 - 5.3 mmol/L [facility] Sodium [Moles/Vol] 133 mmol/L Low 135 - 144 mmol/L [facility] Urea nitrogen (BldV) [Mass/Vol] 14 mg/dL 8 - 23 mg/dL [facility] Basic Metabolic Profon 11-29 (cont.) Normal [facility] Comment on above: Result Comment: Aver age GFR for 70 or more years old: 75 mL/min/1.73sq m Chronic Kidney Disease: <60 mL/min/1.73sq m Kidney failure: <15 mL/min/1.73sq m eGFR calculated using average adult body mass. Additional eGFR calculator available at: http://www.Therapydia/multiple_crcl_2012.htm Performed By: #### I OCDALE BARBER, CDP #### [facility] [address] [place] [address] Beer Coil Cleaner: Afshin Mansfield MD Anion gap [Moles/Vol] 12 mmol/L Normal 9-17 [facility] Comment on above: Performed By: #### I DALE REYES, CDP #### [facility] [address] [place] [phone] Beer Coil Cleaner: Afshin Mansfield MD Calcium [Mass/Vol] 8.3 mg/dL Low 8.6-10.4 [facility] Comment on above: Performed By: #### I OCSUNIL BMP, CDP #### [facility] [address] [place] [address]659 Beer Coil Cleaner: Afshin Mansfield MD Chloride [Moles/Vol] 101 mmol/L Normal 98-107 [facility] Comment on above: Performed By: #### I OCSUNIL BMP, CDP #### [facility] [address] [place] [phone] Beer Coil Cleaner: Afshin Mansfield MD CO2 [Moles/Vol] 20 mmol/L Normal 20-31 [facility] Comment on above: Performed By: #### I OCSUNIL BMP, CDP #### [facility] [address] [place] [address]99 Beer Coil Cleaner: Afshin Mansfield MD Creatinine [Mass/Vol] 0.89 mg/dL Normal 0.70-1.20 [facility] Comment on above: Performed By: #### I OCSUNIL BMP, CDP #### [facility] [address] [place] [address]990 Beer Coil Cleaner: Afshin Mansfield MD GFR, Amer >60 Normal >60 [facility] Comment on above: Performed By: #### I OCSUNIL, BMP, CDP #### [facility] [address] [place] [address]39 Beer Coil Cleaner: Afshin Mansfield MD GFR,non Amer >60 Normal >60 [facility] Comment on above: Performed By: #### I OCSUNIL, BMP, CDP #### [facility] [address] [place] [phone] Beer Coil Cleaner: Afshin Mansfield MD Glucose [Mass/Vol] 198 mg/dL High 70-99 [facility] Comment on above: Performed By: #### I AMY BMP, CDP #### [facility] [address] [place] [address] 71082 Beer Coil Cleaner: Afshin Mansfield MD Potassium [Moles/Vol] 4.4 mmol/L Normal 3.7-5.3 [facility] Comment on above: Performed By: #### DALE KINNEY, CDP #### [facility] [address] [place] [address] 77231 Beer Coil Cleaner: Afshin Mansfield MD Sodium [Moles/Vol] 133 mmol/L Low 135-144 [facility] Comment on above: Performed By: #### I OCSUNIL BMP, CDP #### [facility] [address] [place] [phone] Beer Coil Cleaner: Afshin Mansfield MD Urea nitrogen [Mass/Vol] 14 mg/dL Normal 8-23 [facility] Comment on above: Performed By: #### I OCSUNIL BMP, CDP #### [facility] [address] [place] [phone] Beer Coil Cleaner: Afshin Mansfield MD CBC with Auto Differentialon 11-29-2021 Absolute Eos # 0.00 [facility] Absolute Immature Granulocyte 0.19 [facility] Absolute Lymph # 0.57 Low [facility] Absolute [place] # 1.33 High [facility] Basophils (Bld) [#/Vol] 0.00 10*3/uL [facility] Basophils/100 WBC (Bld) 0 % 0 - 2 % [facility] Eosinophils/100 WBC (Bld) 0 % Low 1 - 4 % [facility] Hematocrit (Bld) [Volume fraction] 40.4 % Low 40.7 - 50.3 % [facility] Hemoglobin (Bld) [Mass/Vol] 13.6 g/dL 13 - 17 g/dL [facility] Immature granulocytes/100 WBC (Bld) 1 % High 0 [facility] Interpretation and review of laboratory results Abnormal [facility] Lymphocytes/100 WBC (Bld) 3 % Low 24 - 43 % [facility] MCH (RBC) [Entitic mass] 30.5 pg 25.2 - 33.5 pg [facility] MCHC (RBC) [Mass/Vol] 33.7 g/dL 28.4 - 34.8 g/dL [facility] MCV (RBC) [Entitic vol] 90.6 fL 82.6 - 102.9 fL [facility] Monocytes/100 WBC (Bld) 7 % 3 - 12 % [facility] Morphology Callum (Bld) [Interp] Normal [facility] NRBC Automated 0.0 0.0 per 100 WBC [facility] Platelet distribution width (Bld) [Ratio] 13.7 % 11.8 - 14.4 % [facility] Platelet mean volume (Bld) [Entitic vol] 9.9 fL 8.1 - 13.5 fL [facility] Platelets (Bld) [#/Vol] 250 10*3/uL [facility] RBC (Bld) [#/Vol] 4.46 10*6/uL 4.21 - 5.7 7 m/uL [facility] Segmented neutrophils/100 WBC (Bld) 89 % High 36 - 65 % [facility] Segs Absolute 16.91 High [facility] WBC (Bld) [#/Vol] 19.0 10*3/uL High [facility] CBC with Diffon 11-29-2021 Abs. Basophil 0.00 k/uL Normal 0.00-0.20 [facility] Comment on above: Performed By: #### I DALE REYES, CDP #### [facility] [address] [place] [address] [phone] Beer Coil Cleaner: Afshin Mansfield MD Abs.Imm.Granulocyte 0.19 k/uL Normal 0.00-0.30 [facility] Comment on above: Performed By: #### DALE KINNEY, CDP #### [facility] [address] [place] [address] [phone] Beer Coil Cleaner: Afshin Mansfield MD Abs.Neutrophil (Seg) 16.91 k/uL High 1.50-8.10 [facility] Comment on above: Performed By: #### DALE KINNEY, CDP #### [facility] [address] [place] [address] 18763 Beer Coil Cleaner: Afshin Mansfield MD Basophils/100 WBC (Bld) 0 % Normal 0-2 [facility] Comment on above: Performed By: #### DALE KINNEY, CDP #### [facility] [address] [place] [address] [phone] Beer Coil Cleaner: Afshin Mansfield MD Eosinophils (Bld) [#/Vol] 0.00 10*3/uL Normal 0.00-0.44 [facility] Comment on above: Performed By: #### I OCDALE BARBER, CDP #### [facility] [address] [place] [address] 68329 Beer Coil Cleaner: Afshin Mansfield MD Eosinophils/100 WBC (Bld) 0 % Low 1-4 [facility] Comment on above: Performed By: #### I OCDALE BARBER, CDP #### [facility] [address] [place] [address] 72309 Beer Coil Cleaner: Afshin Mansfield MD Immature granulocytes/100 WBC (Bld) 1 % High 0 [facility] Comment on above: Performed By: #### I OCAL, BMP, CDP #### [facility] [address] [place] [address] 75245 Beer Coil Cleaner: Afshin Mansfield MD Lymphocytes (Bld) [#/Vol] 0.57 10*3/uL Low 1.10-3.70 [facility] Comment on above: Performed By: #### I OCAL, BMP, CDP #### [facility] [address] [place] [address] 10932 Beer Coil Cleaner: Afshin Mansfield MD Lymphocytes/100 WBC (Bld) 3 % Low 24-43 [facility] Comment on above: Performed By: #### I OCAL, BMP, CDP #### [address] [address] Beer Coil Cleaner: Afshin Mansfield MD Monocytes (Bld) [#/Vol] 1.33 10*3/uL High 0.10-1.20 [facility] Comment on above: Performed By: #### I OCAL, BMP, CDP #### [facility] [address] [place] [address] 28960 Beer Coil Cleaner: Afshin Mansfield MD Monocytes/100 WBC (Bld) 7 % Normal 3-12 [facility] Comment on above: Performed By: #### I OCAL, BMP, CDP #### [facility] [address] [place] [address] 74218 Beer Coil Cleaner: Afshin Mansfield MD Morphology Callum (Bld) [Interp] Normal Normal [facility] Comment on above: Performed By: #### I OCAL, BMP, CDP #### [facility] [address] [place] [address] 86963 Beer Coil Cleaner: Afshin Mansfield MD Neutrophil (Seg) 89 % High 36-65 [facility] Comment on above: Performed By: #### I DALE REYES, CDP #### [facility] [address] [place] [address] [phone] Beer Coil Cleaner: Afshin Mansfield MD Erythrocyte distribution width (RBC) [Ratio] 13.7 % Normal 11.8-14.4 [facility] Comment on above: Performed By: #### I OCDALE BARBER, CDP #### [facility] [address] [place] [address] 76293 Beer Coil Cleaner: Afshin Mansfield MD Hematocrit (Bld) [Volume fraction] 40.4 % Low 40.7-50.3 [facility] Comment on above: Performed By: #### I DALE REYES, CDP #### [facility] [address] [place] [address] 92145 Beer Coil Cleaner: Afshin Mansfield MD Hemoglobin (Bld) [Mass/Vol] 13.6 g/dL Normal 13.0-17.0 [facility] Comment on above: Performed By: #### DALE KINNEY, CDP #### [facility] [address] [place] [address] [phone] Beer Coil Cleaner: Afshin Mansfield MD MCH (RBC) [Entitic mass] 30.5 pg Normal 25.2-33.5 [facility] Comment on above: Performed By: #### I OCDALE BARBER, CDP #### [facility] [address] [place] [address] [phone] Beer Coil Cleaner: Afshin Mansfield MD MCHC (RBC) [Mass/Vol] 33.7 g/dL Normal 28.4-34.8 [facility] Comment on above: Performed By: #### I OCDALE BARBER, CDP #### [facility] [address] [place] [address] 98057 Beer Coil Cleaner: Afshin Mansfield MD MCV (RBC) [Entitic vol] 90.6 fL Normal 82.6-102.9 [facility] Comment on above: Performed By: #### I OCDALE BARBER, CDP #### [facility] [address] [place] [address] 10991 Beer Coil Cleaner: Afshin Mansfield MD NRBC Automated 0.0 per 100 WBC Normal 0.0 [facility] Comment on above: Performed By: #### I OCSUNIL, BMP, CDP #### [facility] [address] [place] [address] [phone] Beer Coil Cleaner: Afshin Mansfield MD Platelet mean volume (Bld) [Entitic vol] 9.9 fL Normal 8.1-13.5 [facility] Comment on above: Performed By: #### I OCDALE BARBER, CDP #### [facility] [address] [place] [address] 03438 Beer Coil Cleaner: Afshin Mansfield MD Platelets (Bld) [#/Vol] 250 10*3/uL Normal 138-453 [facility] Comment on above: Performed By: #### I OCDALE BARBER, CDP #### [facility] [address] [place] [address] [phone] Beer Coil Cleaner: Afshin Mansfield MD RBC (Bld) [#/Vol] 4.46 10*6/uL Normal 4.21-5.77 [facility] Comment on above: Performed By: #### I OCSUNIL BMP, CDP #### [facility] [address] [place] [address] 65714 Beer Coil Cleaner: Afshin Mansfield MD WBC (Bld) [#/Vol] 19.0 10*3/uL High 3.5-11.3 [facility] Comment on above: Performed By: #### I OCSUNIL BMP, CDP #### [facility] [address] [place] [address] 30941 Beer Coil Cleaner: Afshin Mansfield MD CT HEAD WO CONTRASTon 2021 CT HEAD WO CONTRAST EXAMINATION: CT OF THE HEAD WITHOUT CONTRAST 11/29/2021 9:36 am TECHNIQUE: CT of the head was performed without the administration of intravenous contrast. Automated exposure control, iterative reconstruction, and/or weight based adjustment of the mA/kV was utilized to reduce the radiation dose to as low as reasonably achievable. COMPARISON: MRI brain performed 11/28/2021. CT brain performed 11/28/2021. HISTORY: ORDERING SYSTEM PROVIDED HISTORY: stroke monitoring TECHNOLOGIST PROVIDED HISTORY: stroke monitoring Reason for Exam: stroke monitoring FINDINGS: BRAIN/VENTRICLES: There is redemonstration of a right MCA distribution infarct with a small focus of presumed hemorrhage that is similar compared to prior examination. There is mild adjacent mass effect. There is a minimal leftward shift. The ventricles are stable. The infratentorial structures are unremarkable. ORBITS: The visualized portion of the orbits demonstrate no acute abnormality. SINUSES: Paranasal sinuses are normally aerated. There is fluid in the left mastoid air cells. SOFT TISSUES/SKULL: No acute abnormality of the visualized skull or soft tissues. 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 Similar punctate focus of presumed hemorrhage. Interpreted by: Anders Shepard MD Signed by: Anders Shepard MD 11/29/21 Final result Normal [facility] 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 Similar punctate focus of presumed hemorrhage. PN RIS CONSOLIDATED EXAMINATION: CT OF THE HEAD WITHOUT CONTRAST 11/29/2021 9:36 am TECHNIQUE: CT of the head was performed without the administration of intravenous contrast. Automated exposure control, iterative reconstruction, and/or weight based adjustment of the mA/kV was utilized to reduce the radiation dose to as low as reasonably achievable. COMPARISON: MRI brain performed 11/28/2021. CT brain performed 11/28/2021. HISTORY: ORDERING SYSTEM PROVIDED HISTORY: stroke monitoring TECHNOLOGIST PROVIDED HISTORY: stroke monitoring Reason for Exam: stroke monitoring FINDINGS: BRAIN/VENTRICLES: There is redemonstration of a right MCA distribution infarct with a small focus of presumed hemorrhage that is similar compared to prior examination. There is mild adjacent mass effect. There is a minimal leftward shift. The ventricles are stable. The infratentorial structures are unremarkable. ORBITS: The visualized portion of the orbits demonstrate no acute abnormality. SINUSES: Paranasal sinuses are normally aerated. There is fluid in the left mastoid air cells. SOFT TISSUES/SKULL: No acute abnormality of the visualized skull or soft tissues. [facility] Anders Anton MD - 11/29/2021 EXAMINATION: CT OF THE HEAD WITHOUT CONTRAST 11/29/2021 9:36 am TECHNIQUE: CT of the head was performed without the administration of intravenous contrast. Automated exposure control, iterative reconstruction, and/or weight based adjustment of the mA/kV was utilized to reduce the radiation dose to as low as reasonably achievable. COMPARISON: MRI brain performed 11/28/2021. CT brain performed 11/28/2021. HISTORY: ORDERING SYSTEM PROVIDED HISTORY: stroke monitoring TECHNOLOGIST PROVIDED HISTORY: stroke monitoring Reason for Exam: stroke monitoring FINDINGS: BRAIN/VENTRICLES: There is redemonstration of a right MCA distribution infarct with a small focus of presumed hemorrhage that is similar compared to prior examination. There is mild adjacent mass effect. There is a minimal leftward shift. The ventricles are stable. The infratentorial structures are unremarkable. ORBITS: The visualized portion of the orbits demonstrate no acute abnormality. SINUSES: Paranasal sinuses are normally aerated. There is fluid in the left mastoid air cells. SOFT TISSUES/SKULL: No acute abnormality of the visualized skull or soft tissues. 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 Similar punctate focus of presumed hemorrhage. [facility] [email or web address] Phone: [facility] Phone: Radiology Study observation (narrative) [facility] Phone: Calcium, Ionicon 11-29-2021 Calcium [Moles/Vol] 1.07 mmol/L Low 1.13-1.33 [facility] Comment on above: Performed By: #### I OCSUNIL, BMP, CDP #### [facility] [address] [place] [address] Beer Coil Cleaner: Afshin Mansfield MD Calcium, Ionizedon Calcium, Ionized 1.07 mmol/L Low 1.13 - 1.33 mmol/L [facility] Interpretation and review of laboratory results Abnormal [facility] Magnesiumon 11-29-2021 Magnesium [Mass/Vol] 2.6 mg/dL Normal 1.6-2.6 [facility] Comment on above: Performed By: #### I OCSUNIL, BMP, CDP #### [facility] [address] [phone] Beer Coil Cleaner: Afshin Mansfield MD Magnesium [Mass/Vol] 2.6 mg/dL 1.6 - 2 .6 mg/dL [facility] POC Glucose Fingerstickon Glucose [Mass/Vol] 199 mg/dL High 75 - 110 mg/dL [facility] Interpretation and review of laboratory results Abnormal [facility] Glucose [Mass/Vol] 211 mg/dL High 75 - 110 mg/dL [facility] Interpretation and review of laboratory results Abnormal [facility] Glucose [Mass/Vol] 213 mg/dL High 75 - 110 mg/dL [facility] Interpretation and review of laboratory results Abnormal [facility] Glucose [Mass/Vol] 195 mg/dL High 75 - 110 mg/dL [facility] Interpretation and review of laboratory results Abnormal [facility] Glucose [Mass/Vol] 205 mg/dL High 75 - 110 mg/dL [facility] Interpretation and review of laboratory results Abnormal [facility] Basic Metabolic Profon 11-28 (cont.) Normal [facility] Comment on above: Result Comment: Aver age GFR for 70 or more years old: 75 mL/min/1.73sq m Chronic Kidney Disease: <60 mL/min/1.73sq m Kidney failure: <15 mL/min/1.73sq m eGFR calculated using average adult body mass. Additional eGFR calculator available at: http://www.[employer].Ixchelsis/multiple_crcl_2012.htm Performed By: #### C BC, GLYHGB, BMP #### [facility] [address] [place] [address] [phone] Beer Coil Cleaner: Afshin Mansfield MD Anion gap [Moles/Vol] 15 mmol/L Normal 9-17 [facility] Comment on above: Performed By: #### C BC, GLYHGB, BMP #### [facility] [address] [place] [address] 55706 Beer Coil Cleaner: Afshin Mansfield MD Calcium [Mass/Vol] 8.1 mg/dL Low 8.6-10.4 [facility] Comment on above: Performed By: #### C BC, GLYHGB, BMP #### [facility] [address] [place] [address] 33454 Beer Coil Cleaner: Afshin Mansfield MD Chloride [Moles/Vol] 95 mmol/L Low 98-107 [facility] Comment on above: Performed By: #### C BC, GLYHGB, BMP #### [facility] [address] [place] [address] [phone] Beer Coil Cleaner: Afshin Mansfield MD CO2 [Moles/Vol] 21 mmol/L Normal 20-31 [facility] Comment on above: Performed By: #### C BC, GLYHGB, BMP #### [facility] [address] [place] [address] 86942 Beer Coil Cleaner: Afshin Mansfield MD Creatinine [Mass/Vol] 0.94 mg/dL Normal 0.70-1.20 [facility] Comment on above: Performed By: #### C BC, GLYHGB, BMP #### [facility] [address] [place] [address] 05766 Beer Coil Cleaner: Afshin Mansfield MD GFR, Amer >60 Normal >60 [facility] Comment on above: Performed By: #### C BC, GLYHGB, BMP #### [facility] [place] [address] Beer Coil Cleaner: Afshin Mansfield MD GFR,non Amer >60 Normal >60 [facility] Comment on above: Performed By: #### C BC, GLYHGB, BMP #### [facility] [address] [place] [address] 06875 Beer Coil Cleaner: Afshin Mansfield MD Glucose [Mass/Vol] 230 mg/dL High 70-99 [facility] Comment on above: Performed By: #### C BC, GLYHGB, BMP #### [facility] [address] [place] [address] 72656 Beer Coil Cleaner: Afshin Mansfield MD Potassium [Moles/Vol] 4.2 mmol/L Normal 3.7-5.3 [facility] Comment on above: Performed By: #### C BC, GLYHGB, BMP #### [facility] [address] [place] [address] 26084 Beer Coil Cleaner: Afshin Mansfield MD Sodium [Moles/Vol] 131 mmol/L Low 135-144 [facility] Comment on above: Performed By: #### C BC, GLYHGB, BMP #### [facility] [address] [place] [address] 99028 Beer Coil Cleaner: Afshin Mansfield MD Urea nitrogen [Mass/Vol] 10 mg/dL Normal 8-23 [facility] Comment on above: Performed By: #### C BC, GLYHGB, BMP #### [facility] [address] [place] [address] [phone] Beer Coil Cleaner: Afshin Mansfield MD Basic metabolic panelon -0 Anion gap [Moles/Vol] 15 mmol/L 9 - 17 mmol/L [facility] Calcium [Mass/Vol] 8.1 mg/dL Low 8.6 - 10. 4 mg/dL [facility] Chloride [Moles/Vol] 95 mmol/L Low 98 - 10 7 mmol/L [facility] CO2 [Moles/Vol] 21 mmol/L 20 - 31 mmol/L [facility] Creatinine [Mass/Vol] 0.94 mg/dL 0.7 - 1.2 mg/dL [facility] GFR >60 60 - PI NF mL/min [facility] GFR Non- >60 60 - PINF mL/min [facility] GFR/1.73 sq M.predicted MDRD (S/P/Bld) [Vol rate/Area] [facility] Comment on above: Average GFR for 70 o r more years old: 75 mL/min/1.73sq m Chronic Kidney Disease: <60 mL/min/1.73sq m Kidney failure: <15 mL/min/1.73sq m eGFR calculated using average adult body mass. Additional eGFR calculator available at: http://www.[employer]/multiple_crcl_2011.htm Glucose [Mass/Vol] 230 mg/dL High 70 - 99 mg/dL [facility] Interpretation and review of laboratory results Abnormal [facility] Potassium [Moles/Vol] 4.2 mmol/L 3.7 - 5.3 mmol/L [facility] Sodium [Moles/Vol] 131 mmol/L Low 135 - 144 mmol/L [facility] Urea nitrogen (BldV) [Mass/Vol] 10 mg/dL 8 - 23 mg/dL [facility] C-Reactive Proteinon 022 CRP [Mass/Vol] 13.7 mg/L High 0.0-5.0 [facility] Comment on above: Performed By: #### I DALE REYES, CDP #### [facility] [address] [place] [address] Beer Coil Cleaner: Afshin Mansfield MD CRP [Mass/Vol] 13.7 mg/L High 0 - 5 mg/L [facility] Interpretation and review of laboratory results Abnormal [facility] CBCon 11-28-2021 Erythrocyte distribution width (RBC) [Ratio] 13.6 % Normal 11.8-14.4 [facility] Comment on above: Performed By: #### C BC, GLYHGB, BMP #### [facility] [address] [place] [address] [phone] Beer Coil Cleaner: Afshin Mansfield MD Hematocrit (Bld) [Volume fraction] 40.1 % Low 40.7-50.3 [facility] Comment on above: Performed By: #### C BC, GLYHGB, BMP #### [facility] [address] [place] [address] 84820 Beer Coil Cleaner: Afshin Mansfield MD Hemoglobin (Bld) [Mass/Vol] 13.9 g/dL Normal 13.0-17.0 [facility] Comment on above: Performed By: #### C BC, GLYHGB, BMP #### [facility] [address] [place] [address] 83453 Beer Coil Cleaner: Afshin Mansfield MD MCH (RBC) [Entitic mass] 30.2 pg Normal 25.2-33.5 [facility] Comment on above: Performed By: #### C BC, GLYHGB, BMP #### [facility] [address] [place] [address] 23348 Beer Coil Cleaner: Afshin Mansfield MD MCHC (RBC) [Mass/Vol] 34.7 g/dL Normal 28.4-34.8 [facility] Comment on above: Performed By: #### C BC, GLYHGB, BMP #### [facility] [address] [place] [address] 98347 Beer Coil Cleaner: Afshin Mansfield MD MCV (RBC) [Entitic vol] 87.0 fL Normal 82.6-102.9 [facility] Comment on above: Performed By: #### C BC, GLYHGB, BMP #### [facility] [address] [place] [address] [phone] Beer Coil Cleaner: Afshin Mansfield MD NRBC Automated 0.0 per 100 WBC Normal 0.0 [facility] Comment on above: Performed By: #### Amara HOLLING[place]ORTH GLYHGB, BMP #### [facility] [place] [address] Beer Coil Cleaner: Afshin Mansfield MD Platelet mean volume (Bld) [Entitic vol] 10.1 fL Normal 8.1-13.5 [facility] Comment on above: Performed By: #### C DARRICK GLYHGB, BMP #### [facility] [address] [place] [address] 17610 Beer Coil Cleaner: Afshin Mansfield MD Platelets (Bld) [#/Vol] 222 10*3/uL Normal 138-453 [facility] Comment on above: Performed By: #### Amara HOLLINGSWORTH GLYHGB, BMP #### [facility] [address] [place] [address] 66123 Beer Coil Cleaner: Afshin Mansfield MD RBC (Bld) [#/Vol] 4.61 10*6/uL Normal 4.21-5.77 [facility] Comment on above: Performed By: #### C DARRICK GLYHGB, BMP #### [facility] [address] [place] [address] 89129 Beer Coil Cleaner: Afshin Mansfield MD WBC (Bld) [#/Vol] 13.5 10*3/uL High 3.5-11.3 [facility] Comment on above: Performed By: #### C DARRICK GLYHGB, BMP #### [facility] [place] [address] Beer Coil Cleaner: Afshin Mansfield MD Hematocrit (Bld) [Volume fraction] 40.1 % Low 40.7 - 50.3 % [facility] Hemoglobin (Bld) [Mass/Vol] 13.9 g/dL 13 - 17 g/dL [facility] Interpretation and review of laboratory results Abnormal [facility] MCH (RBC) [Entitic mass] 30.2 pg 25.2 - 33.5 pg [facility] MCHC (RBC) [Mass/Vol] 34.7 g/dL 28.4 - 34.8 g/dL [facility] MCV (RBC) [Entitic vol] 87.0 fL 82.6 - 102.9 fL [facility] NRBC Automated 0.0 0.0 per 100 WBC [facility] Platelet distribution width (Bld) [Ratio] 13.6 % 11.8 - 14.4 % [facility] Platelet mean volume (Bld) [Entitic vol] 10.1 fL 8.1 - 13.5 fL [facility] Platelets (Bld) [#/Vol] 222 10*3/uL [facility] RBC (Bld) [#/Vol] 4.61 10*6/uL 4.21 - 5.7 7 m/uL [facility] WBC (Bld) [#/Vol] 13.5 10*3/uL High [facility] AUTO DIFFon 11-28-2021 BASO # 0.0 103/ul Normal 0.0-0.1 [facility] Comment on above: Performed By: #### H STROPN, CMP, CRP #### [facility] [address] [address] [address] Sea Pugh Basophils/100 WBC (Bld) 0.3 % Normal 0.2-2.0 [facility] Comment on above: Performed By: #### H STROPN, CMP, CRP #### [facility] [address] [address] [address] Sea Pugh EO # 0.1 103/ul Normal 0.0-0.7 [facility] Comment on above: Performed By: #### H STROPN, CMP, CRP #### [facility] [address] [address] [address] Sea Pugh Eosinophils/100 WBC (Bld) 0.8 % Critically low 0.9-7.0 [facility] Comment on above: Performed By: #### H STROPN, CMP, CRP #### [facility] [address] [address] [address] Sea Pugh Erythrocyte distribution width (RBC) [Ratio] 13.6 % Normal 11.0-15.0 [facility] Comment on above: Performed By: #### H STROPN, CMP, CRP #### [facility] [address] [place] [address] Dr. Sea Pugh Hematocrit (Bld) [Volume fraction] 41.0 % Critically low 42.0-54.0 [facility] Comment on above: Performed By: #### H STROPN, CMP, CRP #### [facility] [address] [place] [address] Dr. Sea Pugh Hemoglobin (Bld) [Mass/Vol] 14.0 g/dL Normal 14.0-18.0 [facility] Comment on above: Performed By: #### H STROPN, CMP, CRP #### [facility] [address] [place] [address] Dr. Sea Pugh IG # 0.04 10e3/ul Critically high 0.00-0.03 [facility] Comment on above: Performed By: #### H STROPN, CMP, CRP #### [facility] [address] [place] [address] Dr. Sea Pugh IG % 0.3 % Normal 0.0-0.5 [facility] Comment on above: Performed By: #### H STROPN, CMP, CRP #### [facility] [address] [place] [address] Dr. Sea Pugh LYMPH # 1.2 103/ul Normal 1.2-3.8 [facility] Comment on above: Performed By: #### H STROPN, CMP, CRP #### [facility] [address] [place] [address] Dr. Sea Pugh Lymphocytes/100 WBC (Bld) 9.7 % Critically low 20.5-60.0 [facility] Comment on above: Performed By: #### H STROPN, CMP, CRP #### [facility] [address] [place] [address] Dr. Sea Pugh MANUAL DIFF REQ NO Normal [facility] Comment on above: Performed By: #### H STROPN, CMP, CRP #### [facility] [address] [place] [address] Dr. Sea Pugh MCH (RBC) [Entitic mass] 29.9 pg Normal 25.9-34.0 [facility] Comment on above: Performed By: #### H STROPN, CMP, CRP #### [facility] [address] [place] [address] Dr. Sea Pugh MCHC (RBC) [Mass/Vol] 34.1 g/dL Normal 29.9-35.2 [facility] Comment on above: Performed By: #### H STROPN, CMP, CRP #### [facility] [address] [place] [address] Dr. Sea Pugh MCV (RBC) [Entitic vol] 87.6 fL Normal 80.0-94.0 [facility] Comment on above: Performed By: #### H STROPN, CMP, CRP #### [facility] [address] [place] [address] Dr. Sea Pugh MONO # 0.9 103/ul Critically high 0.3-0.8 [facility] Comment on above: Performed By: #### H STROPN, CMP, CRP #### [facility] [address] [place] [address] Dr. Sea Pugh Monocytes/100 WBC (Bld) 7.4 % Normal 1.7-12.0 [facility] Comment on above: Performed By: #### H STROPN, CMP, CRP #### [facility] [address] [place] [address] Dr. Sea Pugh NEUT # 10.3 103/ul Critically high 1.4-6.5 [facility] Comment on above: Performed By: #### H STROPN, CMP, CRP #### [facility] [address] [place] [address] Dr. Sea Pugh Neutrophils/100 WBC (Bld) 81.5 % Critically high 43.0-75.0 [facility] Comment on above: Performed By: #### H STROPN, CMP, CRP #### [facility] [address] [address] [address] Sea Pugh Platelet mean volume (Bld) [Entitic vol] 9.8 fL Normal 9.5-13.5 [facility] Comment on above: Performed By: #### H STROPN, CMP, CRP #### [facility] [address] [address] [address] Sea Pugh PLT 247 103/ul Normal 150-450 [facility] Comment on above: Performed By: #### H STROPN, CMP, CRP #### [facility] [address] [address] [address] Sea Pugh RBC 4.68 106/ul Critically low 4.70-6.10 [facility] Comment on above: Performed By: #### H STROPN, CMP, CRP #### [facility] [address] [address] [address] Sea Pugh WBC 12.6 103/ul Critically high 4.0-11.0 [facility] Comment on above: Performed By: #### H STROPN, CMP, CRP #### [facility] [address] [address] [address] Sea Pugh CRPon 11-28-2021 CRP 0.3 mg/dL Normal <=1.0 [facility] Comment on above: Performed By: #### H STROPN, CMP, CRP #### [facility] [address] HEAD WO CONon 11-28-2021 CT HEAD WO CON EXAMINATION: CT HEAD WO CON HISTORY: HEADACHE COMPARISON: None. TECHNIQUE: CT examination of the head without IV contrast. Dose reduction techniques were achieved by using automated exposure control and/or adjustment of mA and/or kV according to patient size and/or use of iterative reconstruction technique. FINDINGS: Large area of hypoattenuation noted within the right parietotemporal region with associated sulcal effacement and loss of mitchell-white. There are areas of trace hemorrhage noted within the anterior right temporal lobe measuring 4.5 x 7.8 mm. Mild effacement of the right lateral ventricles visualized, no evidence for obstructive hydrocephalus. There is minimal leftward 4 mm midline shift with no evidence for herniation. Basal cisterns are patent. Imaged portions of the paranasal sinuses are clear. Left-sided mastoid effusion visualized. Osseous structures are intact. Bilateral orbits show no acute pathology. IMPRESSION: 1. There is a large area of hypoattenuation noted within the right parietotemporal region with right-sided sulcal effacement and loss of mitchell-white differentiation concerning for an acute infarct. There is a trace hemorrhage noted within the anterior right temporal lobe measuring 4.5 x 7.8 mm. Mild effacement of the right lateral ventricles visualized, no evidence for obstructive hydrocephalus. Minimal leftward 4 mm midline shift with no evidence for herniation. 2. Complete opacification of the left mastoid air cells. Findings relayed to Dr. Patterson at 12:10 AM on 11/28/2021. Electronically authenticated by: VICENTA MARCH Date: 2021-11-28 00:11 Normal [facility] CT HEAD WO CONTRASTon 2021 CT HEAD WO CONTRAST EXAMINATION: CT OF THE HEAD WITHOUT CONTRAST; CTA OF THE HEAD AND NECK WITH CONTRAST 11/28/2021 4:46 am: TECHNIQUE: CT of the head was performed without the administration of intravenous contrast. Automated exposure control, iterative reconstruction, and/or weight based adjustment of the mA/kV was utilized to reduce the radiation dose to as low as reasonably achievable.; CTA of the head and neck was performed with the administration of intravenous contrast. Multiplanar reformatted images are provided for review. MIP images are provided for review. Stenosis of the internal carotid arteries measured using NASCET criteria. Automated exposure control, iterative reconstruction, and/or weight based adjustment of the mA/kV was utilized to reduce the radiation dose to as low as reasonably achievable. Noncontrast CT of the head with reconstructed 2-D images are also provided for review. COMPARISON: None. HISTORY: ORDERING SYSTEM PROVIDED HISTORY: left weakness, sensory deficit TECHNOLOGIST PROVIDED HISTORY: left weakness, sensory deficit Reason for Exam: lt side weakness, mass vs stroke FINDINGS: CT HEAD: BRAIN/VENTRICLES: Cytotoxic edema and appearance of vasogenic edema are present throughout the M2 inferior division right MCA distribution. There is mild patchy associated petechial cortical hemorrhage. No measurable hematoma. There is moderate effacement of the right lateral ventricle and approximately 3 mm leftward midline shift. There is mild diffuse cerebral atrophy. ORBITS: The visualized portion of the orbits demonstrate no acute abnormality. SINUSES: Visualized paranasal sinuses and mastoids are noted for near complete fluid opacification of the left mastoid and partial opacification of the left middle ear cavity. SOFT TISSUES/SKULL: No acute abnormality of the visualized skull or soft tissues. CTA NECK: AORTIC ARCH/ARCH VESSELS: No dissection or arterial injury. No significant stenosis of the brachiocephalic or subclavian arteries. CAROTID ARTERIES: No dissection, arterial injury, or hemodynamically significant stenosis by NASCET criteria. VERTEBRAL ARTERIES: No dissection, arterial injury, or significant stenosis. SOFT TISSUES: The lung apices are clear. No cervical or superior mediastinal lymphadenopathy. The larynx and pharynx are unremarkable. No acute abnormality of the salivary and thyroid glands. BONES: No acute osseous abnormality. CTA HEAD: ANTERIOR CIRCULATION: No significant stenosis of the intracranial internal carotid, anterior cerebral, or middle cerebral arteries. Although there is no specific vessel occlusion identified in the right MCA distribution, there is marked paucity of vessels throughout the affected area. No aneurysm. POSTERIOR CIRCULATION: No significant stenosis of the vertebral, basilar, or posterior cerebral arteries. No aneurysm. OTHER: No dural venous sinus thrombosis on this non-dedicated study. IMPRESSION: 1. Findings appear most consistent with subacute (1-2 week range) infarct in the region of right M2 inferior division with petechial hemorrhage in areas along the cortical ribbon and apparent normalization of cortical density consistent with fogging effect. Associated edema results in sulcal and right lateral ventricle effacement with 3 mm leftward midline shift. 2. No specific vessel occlusion identified however there is marked paucity of vessels throughout the affected area. 3. Mass felt to be unlikely but pre and postcontrast MRI could be obtained for confirmation. Critical results were called by Dr. Adalberto Escobar to Dr. Velázquez on 11/28/2021 at 06:40. Interpreted by: Adalberto Escobar MD Signed by: Adalberto Escobar MD 11/28/21 Final result Normal [facility] Radiology Study observation (narrative) [facility] [employer] Work Phone: CTA HEAD NECK W CONTRASTon 0 11-28-2021 CTA HEAD NECK W CONTRAST EXAMINATION: CT OF THE HEAD WITHOUT CONTRAST; CTA OF THE HEAD AND NECK WITH CONTRAST 11/28/2021 4:46 am: TECHNIQUE: CT of the head was performed without the administration of intravenous contrast. Automated exposure control, iterative reconstruction, and/or weight based adjustment of the mA/kV was utilized to reduce the radiation dose to as low as reasonably achievable.; CTA of the head and neck was performed with the administration of intravenous contrast. Multiplanar reformatted images are provided for review. MIP images are provided for review. Stenosis of the internal carotid arteries measured using NASCET criteria. Automated exposure control, iterative reconstruction, and/or weight based adjustment of the mA/kV was utilized to reduce the radiation dose to as low as reasonably achievable. Noncontrast CT of the head with reconstructed 2-D images are also provided for review. COMPARISON: None. HISTORY: ORDERING SYSTEM PROVIDED HISTORY: left weakness, sensory deficit TECHNOLOGIST PROVIDED HISTORY: left weakness, sensory deficit Reason for Exam: lt side weakness, mass vs stroke FINDINGS: CT HEAD: BRAIN/VENTRICLES: Cytotoxic edema and appearance of vasogenic edema are present throughout the M2 inferior division right MCA distribution. There is mild patchy associated petechial cortical hemorrhage. No measurable hematoma. There is moderate effacement of the right lateral ventricle and approximately 3 mm leftward midline shift. There is mild diffuse cerebral atrophy. ORBITS: The visualized portion of the orbits demonstrate no acute abnormality. SINUSES: Visualized paranasal sinuses and mastoids are noted for near complete fluid opacification of the left mastoid and partial opacification of the left middle ear cavity. SOFT TISSUES/SKULL: No acute abnormality of the visualized skull or soft tissues. CTA NECK: AORTIC ARCH/ARCH VESSELS: No dissection or arterial injury. No significant stenosis of the brachiocephalic or subclavian arteries. CAROTID ARTERIES: No dissection, arterial injury, or hemodynamically significant stenosis by NASCET criteria. VERTEBRAL ARTERIES: No dissection, arterial injury, or significant stenosis. SOFT TISSUES: The lung apices are clear. No cervical or superior mediastinal lymphadenopathy. The larynx and pharynx are unremarkable. No acute abnormality of the salivary and thyroid glands. BONES: No acute osseous abnormality. CTA HEAD: ANTERIOR CIRCULATION: No significant stenosis of the intracranial internal carotid, anterior cerebral, or middle cerebral arteries. Although there is no specific vessel occlusion identified in the right MCA distribution, there is marked paucity of vessels throughout the affected area. No aneurysm. POSTERIOR CIRCULATION: No significant stenosis of the vertebral, basilar, or posterior cerebral arteries. No aneurysm. OTHER: No dural venous sinus thrombosis on this non-dedicated study. IMPRESSION: 1. Findings appear most consistent with subacute (1-2 week range) infarct in the region of right M2 inferior division with petechial hemorrhage in areas along the cortical ribbon and apparent normalization of cortical density consistent with fogging effect. Associated edema results in sulcal and right lateral ventricle effacement with 3 mm leftward midline shift. 2. No specific vessel occlusion identified however there is marked paucity of vessels throughout the affected area. 3. Mass felt to be unlikely but pre and postcontrast MRI could be obtained for confirmation. Critical results were called by Dr. Adalberto Escobar to Dr. Velázquez on 11/28/2021 at 06:40. Interpreted by: Adalberto Escobar MD Signed by: Adalberto Escobar MD 11/28/21 Final result Normal [facility] CTA head neck with contrasto n 11-28-2021 Radiology Study observation (narrative) [facility] [employer] Work Phone: Hemoglobin A1Con 11-28-2021 Glucose [Mass/Vol] 186 mg/dL Normal [facility] Comment on above: Result Comment: The ADA and AACC recommend providing the estimated average glucose result to permit better patient understanding of their HBA1c result. Performed By: #### C BC, GLYHGB, BMP #### [facility] [place], [place] [id number] [employer]: Afshin Mansfield MD HbA1c (Bld) [Mass fraction] 8.1 % High 4.0-6.0 [facility] Comment on above: Performed By: #### C BC, GLYHGB, BMP #### [facility] [address] [place], [place] [id number] [employer]er: Afshin Mansfield MD Hemoglobin A1con 11-28-2021 Glucose [Mass/Vol] 186 mg/dL [facility] [employer] [facility] Comment on above: The ADA and AACC rec ommend providing the estimated average glucose result to permit better patient understanding of their HBA1c result. HbA1c (Bld) [Mass fraction] 8.1 % High 4 - 6 % [facility] Interpretation and review of laboratory results Abnormal [facility] LACTATE/LACTIC ACIDon 2021 Lactate [Moles/Vol] 1.7 mmol/L Normal 0.4-1.9 [facility] Comment on above: Performed By: #### D DIM #### [facility] [address] [address] [address] Sea Pugh Lipid Panelon 11-28-2021 Cholesterol [Mass/Vol] 122 mg/dL NINF - 200 mg/dL [facility] Comment on above: Cholesterol Guidelines: <200 Desirable 200-240 Borderline >240 Undesirable Cholesterol in HDL [Mass/Vol] 34 mg/dL Low 40 - PINF mg/dL [facility] Comment on above: HDL Guidelines: <40 Undesirable 40-59 Borderline >59 Desirable Cholesterol in LDL [Mass/Vol] 74 mg/dL 0 - 130 mg/dL [facility] Comment on above: LDL Guidelines: <100 Desirable 100-129 Near to/above Desirable 130-159 Borderline >159 Undesirable Direct (measured) LDL and calculated LDL are not interchangeable tests. Cholesterol.total/Cho lesterol in HDL [Mass ratio] 3.6 {ratio} NINF - 5 [facility] Interpretation and review of laboratory results Abnormal [facility] Triglyceride [Mass/Vol] 71 mg/dL NINF - 150 mg/dL [facility] Comment on above: Triglyceride Guidelines: <150 Desirable 150-199 Borderline 200-499 High >499 Very high Based on AHA Guidelines for fasting triglyceride, December 2011. [facility] Lipid Profileon 11-28-2021 Cholesterol [Mass/Vol] 122 mg/dL Normal <200 [facility] Comment on above: Result Comment: Cholesterol Guidelines: <200 Desirable 200-240 Borderline >240 Undesirable Performed By: #### I DALE REYES, CDP #### [facility] [place] [address] [employer]er: Afshin Mansfield MD Cholesterol in HDL [Mass/Vol] 34 mg/dL Low >40 [facility] Comment on above: Result Comment: HDL Guidelines: <40 Undesirable 40-59 Borderline >59 Desirable Performed By: #### I DALE REYES, CDP #### [facility] [address] [place] [id number] [employer]: Afshin Mansfield MD Cholesterol in LDL [Mass/Vol] 74 mg/dL Normal 0-130 [facility] Comment on above: Result Comment: LDL Guidelines: <100 Desirable 100-129 Near to/above Desirable 130-159 Borderline >159 Undesirable Direct (measured) LDL and calculated LDL are not interchangeable tests. Performed By: #### I DALE REYES, CDP #### [facility] [address] [place] [phone] [employer]: Afshin Mansfield MD Cholesterol.total/Cho lesterol in HDL [Mass ratio] 3.6 {ratio} Normal <5 [facility] Comment on above: Performed By: #### I DALE REYES, CDP #### [facility] [address] [place] [address] [phone] [employer]: Afshin Mansfield MD Triglyceride [Mass/Vol] 71 mg/dL Normal <150 [facility] Comment on above: Result Comment: Triglyceride Guidelines: <150 Desirable 150-199 Borderline 200-499 High >499 Very high Based on AHA Guidelines for fasting triglyceride, December 2011. Performed By: #### I DALE REYES, CDP #### [facility] [address] [place] [phone] [employer]: Afshin Mansfield MD MRI BRAIN W WO CONTRASTon MRI BRAIN W WO CONTRAST EXAMINATION: MRI OF THE BRAIN WITHOUT AND WITH CONTRAST 11/28/2021 8:52 am TECHNIQUE: Multiplanar multisequence MRI of the head/brain was performed without and with the administration of intravenous contrast. COMPARISON: CT brain performed 11/28/2021. HISTORY: ORDERING SYSTEM PROVIDED HISTORY: questionable brain mass, bleeding TECHNOLOGIST PROVIDED HISTORY: questionable brain mass, bleeding What is the sedation requirement?->None Reason for Exam: questionable brain mass, bleeding FINDINGS: INTRACRANIAL STRUCTURES/VENTRICLES : The sellar and suprasellar structures, optic chiasm, corpus callosum, pineal gland, tectum, and midline brainstem structures are unremarkable. The craniocervical junction is unremarkable. There is restricted diffusion and associated FLAIR signal abnormality involving the right parietal/temporal lobes. There is edema with mass effect upon the right lateral ventricle. There is minimal leftward midline shift. There is no abnormal postcontrast enhancement. The infratentorial structures including the cerebellopontine angles and internal auditory canals are unremarkable. There is associated scattered blooming artifact involving the right parietal/temporal lobes. ORBITS: The visualized portion of the orbits demonstrate no acute abnormality. SINUSES: There is fluid in the left mastoid air cells. Paranasal sinuses are normally aerated. BONES/SOFT TISSUES: The bone marrow signal intensity appears normal. The soft tissues demonstrate no acute abnormality. IMPRESSION: Subacute ischemia involving the right parietal/temporal lobe with associated hemorrhagic/hemosider in staining. There is mild associated edema, mass effect, and minimal leftward midline shift. Interpreted by: Anders Shepard MD Signed by: Anders Shepard MD 11/28/21 Final result Normal [facility] Subacute ischemia involving the right parietal/temporal lobe with associated hemorrhagic/hemosider in staining. There is mild associated edema, mass effect, and minimal leftward midline shift. [facility] RIS CONSOLIDATED EXAMINATION: MRI OF THE BRAIN WITHOUT AND WITH CONTRAST 11/28/2021 8:52 am TECHNIQUE: Multiplanar multisequence MRI of the head/brain was performed without and with the administration of intravenous contrast. COMPARISON: CT brain performed 11/28/2021. HISTORY: ORDERING SYSTEM PROVIDED HISTORY: questionable brain mass, bleeding TECHNOLOGIST PROVIDED HISTORY: questionable brain mass, bleeding What is the sedation requirement?->None Reason for Exam: questionable brain mass, bleeding FINDINGS: INTRACRANIAL STRUCTURES/VENTRICLES : The sellar and suprasellar structures, optic chiasm, corpus callosum, pineal gland, tectum, and midline brainstem structures are unremarkable. The craniocervical junction is unremarkable. There is restricted diffusion and associated FLAIR signal abnormality involving the right parietal/temporal lobes. There is edema with mass effect upon the right lateral ventricle. There is minimal leftward midline shift. There is no abnormal postcontrast enhancement. The infratentorial structures including the cerebellopontine angles and internal auditory canals are unremarkable. There is associated scattered blooming artifact involving the right parietal/temporal lobes. ORBITS: The visualized portion of the orbits demonstrate no acute abnormality. SINUSES: There is fluid in the left mastoid air cells. Paranasal sinuses are normally aerated. BONES/SOFT TISSUES: The bone marrow signal intensity appears normal. The soft tissues demonstrate no acute abnormality. [facility] Anders Merino MD - 11/28/2021 EXAMINATION: MRI OF THE BRAIN WITHOUT AND WITH CONTRAST 11/28/2021 8:52 am TECHNIQUE: Multiplanar multisequence MRI of the head/brain was performed without and with the administration of intravenous contrast. COMPARISON: CT brain performed 11/28/2021. HISTORY: ORDERING SYSTEM PROVIDED HISTORY: questionable brain mass, bleeding TECHNOLOGIST PROVIDED HISTORY: questionable brain mass, bleeding What is the sedation requirement?->None Reason for Exam: questionable brain mass, bleeding FINDINGS: INTRACRANIAL STRUCTURES/VENTRICLES : The sellar and suprasellar structures, optic chiasm, corpus callosum, pineal gland, tectum, and midline brainstem structures are unremarkable. The craniocervical junction is unremarkable. There is restricted diffusion and associated FLAIR signal abnormality involving the right parietal/temporal lobes. There is edema with mass effect upon the right lateral ventricle. There is minimal leftward midline shift. There is no abnormal postcontrast enhancement. The infratentorial structures including the cerebellopontine angles and internal auditory canals are unremarkable. There is associated scattered blooming artifact involving the right parietal/temporal lobes. ORBITS: The visualized portion of the orbits demonstrate no acute abnormality. SINUSES: There is fluid in the left mastoid air cells. Paranasal sinuses are normally aerated. BONES/SOFT TISSUES: The bone marrow signal intensity appears normal. The soft tissues demonstrate no acute abnormality. IMPRESSION: Subacute ischemia involving the right parietal/temporal lobe with associated hemorrhagic/hemosider in staining. There is mild associated edema, mass effect, and minimal leftward midline shift. [employer] Phone: Radiology Study observation (narrative) [employer] Phone: MRI BRAIN W WO CONTRASTOrder ed By: Anders Shepard on 11-28-2021 [employer] Phone: Magnesiumon 11-28-2021 Magnesium [Mass/Vol] 1.5 mg/dL Low 1.6-2.6 [facility] Comment on above: Performed By: #### I AMY, DALE, CDP #### [facility] [address] [phone] [employer]er: Afshin Mansfield MD Interpretation and review of laboratory results Abnormal [facility] Magnesium [Mass/Vol] 1.5 mg/dL Low 1.6 - 2 .6 mg/dL [facility] No Panel Informationon 11-28 1. Findings appear most consistent with subacute (1-2 week range) infarct in the region of right M2 inferior division with petechial hemorrhage in areas along the cortical ribbon and apparent normalization of cortical density consistent with fogging effect. Associated edema results in sulcal and right lateral ventricle effacement with 3 mm leftward midline shift. 2. No specific vessel occlusion identified however there is marked paucity of vessels throughout the affected area. 3. Mass felt to be unlikely but pre and postcontrast MRI could be obtained for confirmation. Critical results were called by Dr. Adalberto Escobar to Dr. Velázquez on 11/28/2021 at 06:40. [facility] RIS CONSOLIDATED EXAMINATION: CT OF THE HEAD WITHOUT CONTRAST; CTA OF THE HEAD AND NECK WITH CONTRAST 11/28/2021 4:46 am: TECHNIQUE: CT of the head was performed without the administration of intravenous contrast. Automated exposure control, iterative reconstruction, and/or weight based adjustment of the mA/kV was utilized to reduce the radiation dose to as low as reasonably achievable.; CTA of the head and neck was performed with the administration of intravenous contrast. Multiplanar reformatted images are provided for review. MIP images are provided for review. Stenosis of the internal carotid arteries measured using NASCET criteria. Automated exposure control, iterative reconstruction, and/or weight based adjustment of the mA/kV was utilized to reduce the radiation dose to as low as reasonably achievable. Noncontrast CT of the head with reconstructed 2-D images are also provided for review. COMPARISON: None. HISTORY: ORDERING SYSTEM PROVIDED HISTORY: left weakness, sensory deficit TECHNOLOGIST PROVIDED HISTORY: left weakness, sensory deficit Reason for Exam: lt side weakness, mass vs stroke FINDINGS: CT HEAD: BRAIN/VENTRICLES: Cytotoxic edema and appearance of vasogenic edema are present throughout the M2 inferior division right MCA distribution. There is mild patchy associated petechial cortical hemorrhage. No measurable hematoma. There is moderate effacement of the right lateral ventricle and approximately 3 mm leftward midline shift. There is mild diffuse cerebral atrophy. ORBITS: The visualized portion of the orbits demonstrate no acute abnormality. SINUSES: Visualized paranasal sinuses and mastoids are noted for near complete fluid opacification of the left mastoid and partial opacification of the left middle ear cavity. SOFT TISSUES/SKULL: No acute abnormality of the visualized skull or soft tissues. CTA NECK: AORTIC ARCH/ARCH VESSELS: No dissection or arterial injury. No significant stenosis of the brachiocephalic or subclavian arteries. CAROTID ARTERIES: No dissection, arterial injury, or hemodynamically significant stenosis by NASCET criteria. VERTEBRAL ARTERIES: No dissection, arterial injury, or significant stenosis. SOFT TISSUES: The lung apices are clear. No cervical or superior mediastinal lymphadenopathy. The larynx and pharynx are unremarkable. No acute abnormality of the salivary and thyroid glands. BONES: No acute osseous abnormality. CTA HEAD: ANTERIOR CIRCULATION: No significant stenosis of the intracranial internal carotid, anterior cerebral, or middle cerebral arteries. Although there is no specific vessel occlusion identified in the right MCA distribution, there is marked paucity of vessels throughout the affected area. No aneurysm. POSTERIOR CIRCULATION: No significant stenosis of the vertebral, basilar, or posterior cerebral arteries. No aneurysm. OTHER: No dural venous sinus thrombosis on this non-dedicated study. [facility] RIS CONSOLIDATED Adalberto Escobar MD - 11/28/2021 EXAMINATION: CT OF THE HEAD WITHOUT CONTRAST; CTA OF THE HEAD AND NECK WITH CONTRAST 11/28/2021 4:46 am: TECHNIQUE: CT of the head was performed without the administration of intravenous contrast. Automated exposure control, iterative reconstruction, and/or weight based adjustment of the mA/kV was utilized to reduce the radiation dose to as low as reasonably achievable.; CTA of the head and neck was performed with the administration of intravenous contrast. Multiplanar reformatted images are provided for review. MIP images are provided for review. Stenosis of the internal carotid arteries measured using NASCET criteria. Automated exposure control, iterative reconstruction, and/or weight based adjustment of the mA/kV was utilized to reduce the radiation dose to as low as reasonably achievable. Noncontrast CT of the head with reconstructed 2-D images are also provided for review. COMPARISON: None. HISTORY: ORDERING SYSTEM PROVIDED HISTORY: left weakness, sensory deficit TECHNOLOGIST PROVIDED HISTORY: left weakness, sensory deficit Reason for Exam: lt side weakness, mass vs stroke FINDINGS: CT HEAD: BRAIN/VENTRICLES: Cytotoxic edema and appearance of vasogenic edema are present throughout the M2 inferior division right MCA distribution. There is mild patchy associated petechial cortical hemorrhage. No measurable hematoma. There is moderate effacement of the right lateral ventricle and approximately 3 mm leftward midline shift. There is mild diffuse cerebral atrophy. ORBITS: The visualized portion of the orbits demonstrate no acute abnormality. SINUSES: Visualized paranasal sinuses and mastoids are noted for near complete fluid opacification of the left mastoid and partial opacification of the left middle ear cavity. SOFT TISSUES/SKULL: No acute abnormality of the visualized skull or soft tissues. CTA NECK: AORTIC ARCH/ARCH VESSELS: No dissection or arterial injury. No significant stenosis of the brachiocephalic or subclavian arteries. CAROTID ARTERIES: No dissection, arterial injury, or hemodynamically significant stenosis by NASCET criteria. VERTEBRAL ARTERIES: No dissection, arterial injury, or significant stenosis. SOFT TISSUES: The lung apices are clear. No cervical or superior mediastinal lymphadenopathy. The larynx and pharynx are unremarkable. No acute abnormality of the salivary and thyroid glands. BONES: No acute osseous abnormality. CTA HEAD: ANTERIOR CIRCULATION: No significant stenosis of the intracranial internal carotid, anterior cerebral, or middle cerebral arteries. Although there is no specific vessel occlusion identified in the right MCA distribution, there is marked paucity of vessels throughout the affected area. No aneurysm. POSTERIOR CIRCULATION: No significant stenosis of the vertebral, basilar, or posterior cerebral arteries. No aneurysm. OTHER: No dural venous sinus thrombosis on this non-dedicated study. IMPRESSION: 1. Findings appear most consistent with subacute (1-2 week range) infarct in the region of right M2 inferior division with petechial hemorrhage in areas along the cortical ribbon and apparent normalization of cortical density consistent with fogging effect. Associated edema results in sulcal and right lateral ventricle effacement with 3 mm leftward midline shift. 2. No specific vessel occlusion identified however there is marked paucity of vessels throughout the affected area. 3. Mass felt to be unlikely but pre and postcontrast MRI could be obtained for confirmation. Critical results were called by Dr. Adalberto Escobar to Dr. Velázquez on 11/28/2021 at 06:40. [employer] Work Phone: No Panel InformationOrdered By: Adalberto Escobar on 11-28-2021 [employer] Work Phone: POC Glucose Fingerstickon Glucose [Mass/Vol] 223 mg/dL High 75 - 110 mg/dL [employer] Interpretation and review of laboratory results [email or web address] [facility] Glucose [Mass/Vol] 242 mg/dL High 75 - 110 mg/dL [facility] hoohbe Interpretation and review of laboratory results Abnormal Miew [facility] Glucose [Mass/Vol] 262 mg/dL High 75 - 110 mg/dL [facility] Interpretation and review of laboratory results Abnormal [facility] Glucose [Mass/Vol] 317 mg/dL High 75 - 110 mg/dL [facility] Interpretation and review of laboratory results [email or web address] [facility] PROF 14(COMP METB)on 022 Albumin [Mass/Vol] 3.7 g/dL Normal 3.4-5.0 [facility] Comment on above: Performed By: #### H STROPN, CMP, CRP #### [facility] [address] [address] [address] Sea Pugh Albumin/Globulin [Mass ratio] 0.9 {ratio} Normal [facility] Comment on above: Performed By: #### H STROPN, CMP, CRP #### [facility] [address] [address] [address] Sea Pugh ALP [Catalytic activity/Vol] 150 U/L Critically high 46-116 [facility] Comment on above: Performed By: #### H STROPN, CMP, CRP #### [facility] [address] [address] [address] Sea Pugh ALT [Catalytic activity/Vol] 23 U/L Normal 16-63 [facility] Comment on above: Performed By: #### H STROPN, CMP, CRP #### [facility] [address] [address] [address] Sea Pugh Anion gap [Moles/Vol] 9.8 mmol/L Normal [facility] Comment on above: Performed By: #### H STROPN, CMP, CRP #### [facility] [address] [address] [address] Sea Pugh AST [Catalytic activity/Vol] 20 U/L Normal 15-37 [facility] Comment on above: Performed By: #### H STROPN, CMP, CRP #### [facility] [address] [place] [address] Dr. Sea Pugh Bilirubin [Mass/Vol] 1.2 mg/dL Critically high 0.2-1.0 [facility] Comment on above: Performed By: #### H STROPN, CMP, CRP #### [facility] [address] [place] [address] Dr. Sea Pugh Calcium [Mass/Vol] 8.5 mg/dL Normal 8.5-10.1 [facility] Comment on above: Performed By: #### H STROPN, CMP, CRP #### [facility] [address] [place] [address] Dr. Sea Pugh Chloride [Moles/Vol] 100 mmol/L Normal 98-107 [facility] Comment on above: Performed By: #### H STROPN, CMP, CRP #### [facility] [address] [place] [address] Dr. Sea Pugh CO2 [Moles/Vol] 26.8 mmol/L Normal 21.0-32.0 [facility] Comment on above: Performed By: #### H STROPN, CMP, CRP #### [facility] [address] [address] [address] Sea Pugh Creatinine [Mass/Vol] 1.21 mg/dL Normal 0.70-1.30 [facility] Comment on above: Performed By: #### H STROPN, CMP, CRP #### [facility] [address] [address] [address] Sea Pugh EGFR-AF [place]OREAN >60 Normal >=60 [facility] Comment on above: Performed By: #### H STROPN, CMP, CRP #### [facility] [address] [address] [address] Sea Pugh EGFR-NON AF [place] 58 mL/min/1.73m2 Critically low >=60 [facility] Comment on above: Performed By: #### H STROPN, CMP, CRP #### [facility] [address] [address] [address] Sea Pugh Globulin (S) [Mass/Vol] 3.9 g/dL Normal [facility] Comment on above: Performed By: #### H STROPN, CMP, CRP #### [facility] [address] [address] [address] Sea Pugh Glucose [Mass/Vol] 165 mg/dL Critically high 74-106 [facility] Comment on above: Performed By: #### H STROPN, CMP, CRP #### [facility] [address] [address] [address] Sea Pugh Potassium [Moles/Vol] 3.6 mmol/L Normal 3.5-5.1 [facility] Comment on above: Performed By: #### H STROPN, CMP, CRP #### [facility] [address] [address] [address] Sea Pugh Protein [Mass/Vol] 7.6 g/dL Normal 6.4-8.2 [facility] Comment on above: Performed By: #### H STROPN, CMP, CRP #### [facility] [address] [address] [address] Sea Pugh Sodium [Moles/Vol] 133 mmol/L Critically low 136-145 Th [facility] Comment on above: Performed By: #### H STROPN, CMP, CRP #### [facility] [address] [address] [address] Sea Pugh Urea nitrogen [Mass/Vol] 9.0 mg/dL Normal 7.0-18.0 [facility] Comment on above: Performed By: #### H STROPN, CMP, CRP #### [facility] [address] [place] [address] Dr. Sea Pugh Urea nitrogen/Creatinine [Mass ratio] 7.4 mg/mg Normal [facility] Comment on above: Performed By: #### H STROPN, CMP, CRP #### [facility] [address] [place], [place] [address] [address]. Sea Pugh Procalcitoninon 11-28-2021 Procalcitonin 0.10 ng/mL High <0.09 [facility] Comment on above: Result Comment: Suspected Sepsis: <0.50 ng/mL Low likelihood of sepsis. 0.50-2.00 ng/mL Increased likelihood of sepsis. Antibiotics encouraged. >2.00 ng/mL High risk of sepsis/shock. Antibiotics strongly encouraged. Suspected Lower Resp Tract Infections: <0.24 ng/mL Low likelihood of bacterial infection. >0.24 ng/mL Increased likelihood of bacterial infection. Antibiotics encouraged. With successful antibiotic therapy, PCT levels should decrease rapidly. (Half-life of 24 to 36 hours.) Procalcitonin values from samples collected within the first 6 hours of systemic infection may still be low. Retesting may be indicated. Values from day 1 and day 4 can be entered into the Change in Procalcitonin Calculator (www.xlodeu-iau-pdnamlkyio.com) to determine the patient's Mortality Risk Prognosis In healthy neonates, plasma Procalcitonin (PCT) concentrations increase gradually after , reaching peak values at about 24 hours of age then decrease to normal values below 0.5 ng/mL by 48-72 hours of age. Performed By: #### I OCAL, BMP, CDP #### [facility] [address] [place] [address] Beer Coil Cleaner: Afshin Mansfield MD Interpretation and review of laboratory results Abnormal [facility] Procalcitonin 0.1 ng/mL High NINF - 0.09 ng/mL [facility] Comment on above: Suspected Sepsis: <0.50 ng/mL Low likelihood of sepsis. 0.50-2.00 ng/mL Increased likelihood of sepsis. Antibiotics encouraged. >2.00 ng/mL High risk of sepsis/shock. Antibiotics strongly encouraged. Suspected Lower Resp Tract Infections: <0.24 ng/mL Low likelihood of bacterial infection. >0.24 ng/mL Increased likelihood of bacterial infection. Antibiotics encouraged. With successful antibiotic therapy, PCT levels should decrease rapidly. (Half-life of 24 to 36 hours.) Procalcitonin values from samples collected within the first 6 hours of systemic infection may still be low. Retesting may be indicated. Values from day 1 and day 4 can be entered into the Change in Procalcitonin Calculator (www.dwxopc-qwh-jwhffcupqv.Ixchelsis) to determine the patient's Mortality Risk Prognosis In healthy neonates, plasma Procalcitonin (PCT) concentrations increase gradually after , reaching peak values at about 24 hours of age then decrease to normal values below 0.5 ng/mL by 48-72 hours of age. [facility] SED RATE 42 mm/hr Critically high <=20 [facility] Comment on above: Performed By: #### S EDR #### [facility] [address] [address] [address] Sea Pugh TROPONIN, HIGH SENSITIVITYon 11-28-2021 HSTROP 7.0 pg/mL Normal 4.0-76.1 [facility] Comment on above: Result Comment: CUT- OFF POINTS HAVE BEEN ESTABLISHED BASED ON THE FOURTH UNIVERSAL DEFINITIONS OF MYOCARDIAL INFARCTION. THE UPPER REFERENCE LIMIT (URL) OF TROPONIN, DEFINED THE 99TH PERCENTILE OF cTnI DISTRIBUTION IN A REFERENCE POPULATION, HAS BEEN CONFIRMED THE DECISION THRESHOLD FOR AK DIAGNOSIS. Performed By: #### H STROPN, CMP, CRP #### [facility] [address] [place], [place] [address] Dr. 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) (I25.10) High risk medication use (V58.69) (Z79.899) Hyperlipidemia (272.4) (E78.5) Former smoker (V15.82) (Z87.891) QUIT MAR 2019 Essential hypertension (401.9) (I10) Anemia (285.9) (D64.9) Overweight with body mass index (BMI) of 28 to 28.9 in adult (278.02,V85.24) (E66.3,Z68.28) Orders Essential hypertension Start: Lisinopril 5 MG Oral Tablet; TAKE 1 TABLET DAILY Essential hypertension, Persistent atrial fibrillation Basic Metabolic Panel; Status:Active - Retrospective Authorization; Requested for:[id number]; Overweight with body mass index (BMI) of 28 to 28.9 in adult Healthy Weight Tips; Status:Complete - Retrospective Authorization; Done: 27Nov2021 Some eating tips that can help you lose weight.; Status:Complete - Retrospective Authorization; Done: [id number] Persistent atrial fibrillation IO EKG Electrocardiogram- 12 Lead; Status:Complete; Done: [id number] Single vessel coronary disease Renew: Aspirin EC 81 MG Oral Tablet Delayed Release; TAKE 1 TABLET DAILY Renew: Atorvastatin Calcium 80 MG Oral Tablet (Lipitor); TAKE 1 TABLET DAILY SocHx: Former smoker Tobacco Use Screening; Status:Complete; Done: 27Nov2021 Patient Instructions Please bring all medicines, vitamins, and herbal supplements with you when you come to the office. Prescriptions will not be filled unless you are compliant with your follow up appointments or have a follow up appointment scheduled as per instruction of your physician. Refills should be requested at the time of your visit. Increase Lisinopril Blood Pressure Follow Up In 4 weeks. Follow up in 6 months The provider reviewed the following test(s) and result(s) with the patient: ECG Chief Complaint SHAHRZAD EDGAR is being seen for a 6 month follow-up of. History of Present Illness Patient is here for follow-up continue management for prior history of coronary artery disease, myocardial infarction, PCI to the distal right coronary artery, persistent atrial fibrillation maintaining normal sinus rhythm, obesity, hypertension and hyperlipidemia. Since last time I saw him he was admitted to the hospital on 1 occasion with atypical chest pain. It felt to be GI based on my review of his record. His CT scan noted and reviewed with him. His laboratory also noted and reviewed with him. Since his discharge from the hospital he denies any complaint. Today blood pressure seem to be suboptimally controlled. Improved after I saw him Assessment 1. Status post prior presentation with inferior wall myocardial infarction. Status post thrombectomy and balloon angioplasty to a small PLV branch. back in 2019. Patient describe functional class I. He had recent hospital admission for atypical chest pain work-up was benign cardiac balderas 2. Persistent atrial fibrillation maintained in normal sinus rhythm/sinus bradycardia. Started on sotalol recently. QTc atenolol is acceptable. Currently on only aspirin. His Eliquis was discontinued rpreviously due to severe anemia 3. High-risk medication in form of sotalol tolerating that well 4. Obesity with another weight gain 5. Hypertension to be running a little bit on the high range 6. Hyperlipidemia on atorvastatin seem to be controlled based on recent lab 7. Anemia etiology unclear currently being followed by hematology 8. Reformed smoker 9. Mild sinus bradycardia completely asymptomatic heart rate 60 today Plan 1. Patient was advised to continue present medical therapy. Except increasing his lisinopril to 5 mg to optimize blood pressure control. We discussed anticoagulation the patient elected to remain on aspirin. He understand the risk and benefit. We discussed watchman device but the patient elected to defer for now 2. He was counseled regarding losing weight, exercise and dietary modification 3. Reported that he has not been smoking 3 years 4. We'll see him back in the office in next 6 month will have a blood pressure in 6 to 8 weeks 5. Reviewed his recent lab with him Surgical History Problems History of Back surgery History of Cataract surgery History of Colonoscopy History of Elbow surgery History of Gallbladder surgery History of Tonsillectomy History of Vasectomy Current Meds Medication NameInstruction Aspirin EC 81 MG Oral Tablet Delayed ReleaseTAKE 1 TABLET DAILY. Atorvastatin Calcium 80 MG Oral TabletTAKE 1 TABLET DAILY. Betapace AF 120 MG Oral TabletTake 1/2 tablet every 12 hours Januvia 100 MG Oral TabletTAKE 1 TABLET DAILY. Lisinopril 2.5 MG Oral TabletTAKE 1 TABLET DAILY. Allergies Medication No Known Drug Allergies Recorded By: Jie Parker; 05/22/2021 1:11:42 PM Social History Problems Caffeine use (V49.89) (Z78.9) 2 CUPS OF COFFEE DAILY Consumes alcohol (V49.89) (Z72.89) 1 BEER OCCASIONALLY Former smoker (V15.82) (Z87.891) QUIT MAR 2019 No illicit drug us (more content not included)... Normal [employer] Tobacco Screening.on 022 Fall risk assessment a) No falls within the last year [facility] [employer] 250 DO Work Phone: Tobacco use status [facility] b) No [facility] 250 DO Work Phone: BNPon 09-22-2021 Natriuretic peptide B (Bld) [Mass/Vol] 836.0 pg/mL Normal <=900.0 [facility] Comment on above: Performed By: #### H STROPN, CMP, BNP ####[facility] [address] [place], [place] [id number]. Sea Pugh CBC AUTO DIFFon 09-22-2021 BASO # 0.1 103/ul Normal 0.0-0.1 [facility] Comment on above: Performed By: #### D DIM #### [facility] [address] [address] [address] Sea Pugh Basophils/100 WBC (Bld) 0.5 % Normal 0.2-2.0 [facility] Comment on above: Performed By: #### D DIM #### [facility] [address] [address] [address] Sea Pugh EO # 0.3 103/ul Normal 0.0-0.7 [facility] Comment on above: Performed By: #### D DIM #### [facility] [address] [address] [address] Sea Pugh Eosinophils/100 WBC (Bld) 3.3 % Normal 0.9-7.0 [facility] Comment on above: Performed By: #### D DIM #### [facility] [address] [address] [address] Sea Pugh Erythrocyte distribution width (RBC) [Ratio] 13.7 % Normal 11.0-15.0 [facility] Comment on above: Performed By: #### D DIM #### [facility] [address] [address] [address] Sea Pugh Hematocrit (Bld) [Volume fraction] 41.3 % Critically low 42.0-54.0 [facility] Comment on above: Performed By: #### D DIM #### [facility] [address] [address] [address] Sea Pugh Hemoglobin (Bld) [Mass/Vol] 14.0 g/dL Normal 14.0-18.0 [facility] Comment on above: Performed By: #### D DIM #### [facility] [address] [address] [address] Sea Pugh IG # 0.04 10e3/ul Critically high 0.00-0.03 [facility] Comment on above: Performed By: #### D DIM #### [facility] [address] [address] [address] Sea Pugh IG % 0.4 % Normal 0.0-0.5 [facility] Comment on above: Performed By: #### D DIM #### [facility] [address] [place] [address] Dr. Sea Pugh LYMPH # 1.3 103/ul Normal 1.2-3.8 [facility] Comment on above: Performed By: #### D DIM #### [facility] [address] [place] [address] Dr. Sea Pugh Lymphocytes/100 WBC (Bld) 13.1 % Critically low 20.5-60.0 [facility] Comment on above: Performed By: #### D DIM #### [facility] [address] [place] [address] Dr. Sea Pugh MANUAL DIFF REQ NO Normal [facility] Comment on above: Performed By: #### D DIM #### [facility] [address] [place] [address] Dr. Sea Pugh MCH (RBC) [Entitic mass] 30.2 pg Normal 25.9-34.0 [facility] Comment on above: Performed By: #### D DIM #### [facility] [address] [place] [address] Dr. Sea Pugh MCHC (RBC) [Mass/Vol] 33.9 g/dL Normal 29.9-35.2 [facility] Comment on above: Performed By: #### D DIM #### [facility] [address] [place] [address] Dr. Sea Pugh MCV (RBC) [Entitic vol] 89.0 fL Normal 80.0-94.0 [facility] Comment on above: Performed By: #### D DIM #### [facility] [address] [address] [address] Sea Pugh MONO # 1.0 103/ul Critically high 0.3-0.8 [facility] Comment on above: Performed By: #### D DIM #### [facility] [address] [address] [address] Sea Pugh Monocytes/100 WBC (Bld) 9.8 % Normal 1.7-12.0 [facility] Comment on above: Performed By: #### D DIM #### [facility] [address] [address] [address] Sea Pugh NEUT # 7.1 103/ul Critically high 1.4-6.5 [facility] Comment on above: Performed By: #### D DIM #### [facility] [address] [place] [address] Dr. Sea Pugh Neutrophils/100 WBC (Bld) 72.9 % Normal 43.0-75.0 [facility] Comment on above: Performed By: #### D DIM #### [facility] [address] [place] [address] Dr. Sea Pugh Platelet mean volume (Bld) [Entitic vol] 9.7 fL Normal 9.5-13.5 [facility] Comment on above: Performed By: #### D DIM #### [facility] [address] [place] [address] Dr. Sea Pugh PLT 247 103/ul Normal 150-450 [facility] Comment on above: Performed By: #### D DIM #### [facility] [address] [address] [address] Sea Pugh RBC 4.64 106/ul Critically low 4.70-6.10 [facility] Comment on above: Performed By: #### D DIM #### [facility] [address] [address] [address] Sea Pugh WBC 9.8 103/ul Normal 4.0-11.0 [facility] Comment on above: Performed By: #### D DIM #### [facility] [address] [id number] Sea Pugh CTA CHEST WO W CONon 022 CTA CHEST WO W CON CTA CHEST WITH IV CONTRAST CTA CHEST WO W CON, DATE: 09/22/2021 6:37 PM EDT HISTORY: CHEST PAIN, UNSPECIFIED in a 75-year-old male COMPARISON: CT chest dated 11/29/2020 CT dated 02/11/2016 CT dated 11/29/2020 TECHNIQUE: Multiple axial images are taken from the level of the thyroid down through the upper abdomen with and without the use of IV contrast. Images are then reconstructed in the sagittal and coronal planes. This exam was performed according to our departmental dose-optimization program which includes use of Automated Exposure Control, adjustment of the mA and/or kV according to patient size and/or use of iterative reconstruction technique. Postprocessing was performed for CTA with the following as per hospital protocol: Maximum intensity projection (MIPs) Contrast Used: 25 mL of Omnipaque 350 FINDINGS: Lungs: Lungs are adequately expanded. Bibasilar atelectasis versus groundglass opacities are demonstrated. Pleura: No pneumothorax. No pneumomediastinum. Trace effusion. Thyroid: Normal Mediastinum: Aorta: Normal. No evidence of dissection. Aorta measures within normal limits. Minimal vascular calcification. Pulmonary artery: Normal. No pulmonary embolus, allowing for bolus timing. Heart: Normal. Trachea/Bronchi: Well aerated. No intraluminal masses. Esophagus: Decompressed which limits evaluation. Normal for the lack of distention. Lymph Nodes: Normal. Chest wall: Normal. Axilla: Normal. Osseous Structures: Stable 5% compression fracture of the superior endplate seen at T8 compared to 2020. Subdiaphragm: The subdiaphragmatic abdominal organs included in the [id number] do not demonstrate any acute abnormality. IMPRESSION: 1. Normal-appearing thoracic aorta. 2. No CT evidence for acute pulmonary embolus. 3. Otherwise unremarkable CT scan of the chest for acute pathology. Electronically authenticated by: OBI MIDDLETON Date: 2021-09-22 19:33 Normal [facility] Covid-19 PCR (CVDTB)on SARS-CoV-2 (COVID-19) RNA PHOENIX+probe Ql (Unsp spec) Not detected Normal NOT DETECTED [facility] Comment on above: Result Comment: When diagnostic testing is negative, the possibility of a false negative should be considered in the context of a patient's recent exposures and the presence of clinical signs and symptoms consistent with SARS-CoV-2. This test is not yet approved or cleared by the [place] FDA. When there are no FDA-approved or cleared tests available, and other criteria are met, FDA can make tests available under an emergency access mechanism called an Emergency Use Authorization (EUA). The EUA for this test is supported by the [place] Technician of Health and Human Service's declaration that circumstances exist to justify the emergency use of in vitro diagnostics for the detection and/or diagnosis of the virus that causes COVID-19. This EUA will remain in effect for the duration of the COVID-19 declaration justifying emergency of IVDs, unless it is terminated or revoked by the FDA (after which the test may no longer be used). Performed By: #### H STROPN, CMP, CRP #### [facility] [address] [address] [address] Sea Pugh PROF 14(COMP METB)on 022 Albumin [Mass/Vol] 3.6 g/dL Normal 3.4-5.0 [facility] Comment on above: Performed By: #### H STROPN, CMP, BNP ####[facility] [address] [address]DrMook Pugh Albumin/Globulin [Mass ratio] 0.9 {ratio} Normal [facility] Comment on above: Performed By: #### H STROPN, CMP, BNP ####[facility] [address] [address]Dr. Sea Pugh ALP [Catalytic activity/Vol] 143 U/L Critically high 46-116 [facility] Comment on above: Performed By: #### H STROPN, CMP, BNP ####[facility] [address] [address]DrMook Pugh ALT [Catalytic activity/Vol] 28 U/L Normal 16-63 [facility] Comment on above: Performed By: #### H STROPN, CMP, BNP ####[facility] [address] [address]Dr. Sea Pugh Anion gap [Moles/Vol] 12.6 mmol/L Normal [facility] Comment on above: Performed By: #### H STROPN, CMP, BNP ####[facility] [address] [address]Dr. Sea Pugh AST [Catalytic activity/Vol] 18 U/L Normal 15-37 [facility] Comment on above: Performed By: #### H STROPN, CMP, BNP ####[facility] [address] [address]Dr. Sea Pugh Bilirubin [Mass/Vol] 1.1 mg/dL Critically high 0.2-1.0 [facility] Comment on above: Performed By: #### H STROPN, CMP, BNP ####[facility] [address] [address]Dr. Sea Pugh Calcium [Mass/Vol] 8.7 mg/dL Normal 8.5-10.1 [facility] Comment on above: Performed By: #### H STROPN, CMP, BNP ####[facility] [address] [address]Dr. Sea Pugh Chloride [Moles/Vol] 100 mmol/L Normal 98-107 [facility] Comment on above: Performed By: #### H STROPN, CMP, BNP ####[facility] [address] [address]Dr. Sea Pugh CO2 [Moles/Vol] 27.1 mmol/L Normal 21.0-32.0 [facility] Comment on above: Performed By: #### H STROPN, CMP, BNP ####[facility] [address] [address]Dr. Sea Pugh Creatinine [Mass/Vol] 1.15 mg/dL Normal 0.70-1.30 [facility] Comment on above: Performed By: #### H STROPN, CMP, BNP ####[facility] [address] [address]Dr. Sea Pugh EGFR-AF NORTH [place]OREAN >60 Normal >=60 [facility] Comment on above: Performed By: #### H STROPN, CMP, BNP ####[facility] [address] [address]Dr. Sea Pugh EGFR-NON AF [place]OREAN >60 Normal >=60 [facility] Comment on above: Performed By: #### H STROPN, CMP, BNP ####[facility] [address] [address]Dr. Sea Pugh Globulin (S) [Mass/Vol] 3.9 g/dL Normal [facility] Comment on above: Performed By: #### H STROPN, CMP, BNP ####[facility] [address] [address]Dr. Sea Pugh Glucose [Mass/Vol] 214 mg/dL Critically high 74-106 [facility] Comment on above: Performed By: #### H STROPN, CMP, BNP ####[facility] [address] [address]Dr. Sea Pugh Potassium [Moles/Vol] 3.7 mmol/L Normal 3.5-5.1 [facility] Comment on above: Performed By: #### H STROPN, CMP, BNP ####[facility] [address] [place], [place] [address]Dr. Sea Pugh Protein [Mass/Vol] 7.5 g/dL Normal 6.4-8.2 [facility] Comment on above: Performed By: #### H STROPN, CMP, BNP ####[facility] [address] [address]Dr. Sea Pugh Sodium [Moles/Vol] 136 mmol/L Normal 136-145 [facility] Comment on above: Performed By: #### H STROPN, CMP, BNP ####[facility] [address] [address]Dr. Sea Pugh Urea nitrogen [Mass/Vol] 13.0 mg/dL Normal 7.0-18.0 [facility] Comment on above: Performed By: #### H STROPN, CMP, BNP ####[facility] [address] [place], [place] [address]Dr. Sea Pugh Urea nitrogen/Creatinine [Mass ratio] 11.3 mg/mg Normal [facility] Comment on above: Performed By: #### H STROPN, CMP, BNP ####[facility] [address] [address]Dr. Sea Pugh PROTIMEon 09-22-2021 INR Coag (PPP) [Relative time] 1.07 {INR} Normal [facility] Comment on above: Performed By: #### P T, PTT ####[facility] [address] [address]Dr. Sea Pugh INR GUIDELINES SEE BELOW Normal [facility] Comment on above: Result Comment: MONTEZ RED INR: 2.0 - 3.0 CONDITIONS NOT LISTED BELOW 2.5 - 3.5 FOR PROSTHETIC HEART VALVE REPLACEMENT 2.5 - 3.5 RECURRENT THROMBOSIS Performed By: #### P T, PTT ####[facility] [address] [place], [place] [address]Dr. Sea Pugh PT Coag (PPP) [Time] 11.5 s Normal 9.0-11.6 [facility] Comment on above: Performed By: #### P T, PTT ####[facility] [address] [place], [place] [address]Dr. Sea Pugh PTTon 09-22-2021 aPTT Coag (Bld) [Time] 30.2 s Normal 22.3-36.2 [facility] Comment on above: Performed By: #### P T, PTT ####[facility] [address] [place], [place] [address]Dr. Sea Pugh TROPONIN, HIGH SENSITIVITYon 09-22-2021 HSTROP 9.5 pg/mL Normal 4.0-76.1 [facility] Comment on above: Result Comment: CUT- OFF POINTS HAVE BEEN ESTABLISHED BASED ON THE FOURTH UNIVERSAL DEFINITIONS OF MYOCARDIAL INFARCTION. THE UPPER REFERENCE LIMIT (URL) OF TROPONIN, DEFINED THE 99TH PERCENTILE OF cTnI DISTRIBUTION IN A REFERENCE POPULATION, HAS BEEN CONFIRMED THE DECISION THRESHOLD FOR AK DIAGNOSIS. Performed By: #### H STROPN, CMP, BNP ####[facility] [address] [place], [place] [address]Yk. Sea Pugh XR CHEST 1 Von 09-22-2021 XR CHEST 1 V EXAM: XR CHEST 1 V a t 1828 hours HISTORY: CHEST PAIN, UNSPECIFIED COMPARISON: 08/22/2021 TECHNIQUE: AP upright portable chest x-ray FINDINGS: The heart is not enlarged and the vasculature is not distended. No acute infiltrate, effusion or pneumothorax is identified. The osseous structures are grossly intact. IMPRESSION: No acute infiltrate or evidence of cardiac decompensation. The overall appearance of the chest is unchanged. Electronically authenticated by: FARIBA MCCLURE Date: 2021-09-22 19:39 Normal [facility] CT HEAD WO CONon 08-26-[address]21 CT HEAD WO CON CT head without contrast CLINICAL: Headache. Patient fell at home today. Patient on aspirin. Laceration above left eye. TECHNIQUE: Contiguous transaxial images were obtained from skull base to vertex without administration of intravenous contrast. Dose reduction: mA and/or kV are were adjusted by automated exposure control software based upon patients height and weight. FINDINGS: Comparison made to head CT dated 05/28/2020. There is left supraorbital scalp soft tissue swelling with laceration. There is no acute calvarial fracture. There is a left maxillary sinus air-fluid level. There is minimal partial opacification of left mastoid air cells. Right mastoid air cells are clear. The visualized portions of the globes and orbits appear grossly normal for age. The ventricles and sulci are normal for age and symmetric bilaterally. There is no intraparenchymal hemorrhage, extraaxial fluid collection, mass lesion, or acute large vessel ischemia by noncontrast CT. IMPRESSION: 1. Left supraorbital scalp soft tissue swelling and laceration. 2. No acute intracranial abnormality. 3. Left maxillary sinus air-fluid level. 4. Minimal partial opacification of left mastoid air cells. If the patient has a focal neurologic deficit or there is clinical suspicion for acute cerebrovascular accident, brain MRI would be recommended for further evaluation. Electronically authenticated by: KENY GREENE Date: 2021-08-26 09:53 Normal [facility] CT ORBIT WO CONon 08-26-2021 CT ORBIT WO CON CT cervical spine CLINICAL: HEADACHE . Patient fell today. Patient on aspirin. Laceration above left eye. TECHNIQUE: Contiguous transaxial images obtained from skullbase through cervical spine without administration of intravenous contrast. Coronal and sagittal reformations were obtained. Dose reduction: mA and/or kV are were adjusted by automated exposure control software based upon patients height and weight. FINDINGS: There are no prior exams for comparison. There is osteopenia of the cervical spine. There is straightening of the cervical spine with loss of normal cervical lordosis. There is no prevertebral soft tissue swelling or acute cervical spine fracture. There is multilevel degenerative disc disease of the cervical spine that is most pronounced from C3-C4 through T1-T2 where it is moderate to severe. There is minimal anterolisthesis of C2 on C3. There are posterior disc-osteophyte complexes, most pronounced at C6-C7 and C7-T1. There is multilevel and bilateral uncovertebral joint osteoarthritis from C3-C4 to C7-T1. There is mild right C7-T1 facet joint osteoarthritis. There is mild left C2-C3 facet joint osteoarthritis. Uncovertebral and facet joint osteoarthritis contribute to neural foraminal narrowing and neural foraminal narrowing is most pronounced on the right at C3-C4, bilaterally at C5-C6, and on the left at C6-C7. 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 There is bilateral carotid artery atherosclerosis. There is partial opacification of left mastoid air cells. There is mild biapical emphysema. IMPRESSION: 1. No acute cervical spine fracture. 2. There is straightening of the cervical spine, likely positional or related to muscle spasm. 3. Moderate to severe multilevel degenerative disc disease of the cervical spine from C3-C4 through T1-T2. Vertebral and facet joint osteoarthritis contribute to neural foraminal narrowing as described. 4. Bilateral carotid artery atherosclerosis. CT orbit without contrast CLINICAL: HEADACHE. Patient fell today. Patient on aspirin. Laceration above left eye. TECHNIQUE: Contiguous transaxial images obtained through the orbits without administration of intravenous contrast. Coronal reformations were obtained. Dose reduction: mA and/or kV are were adjusted by automated exposure control software based upon patients height and weight. FINDINGS: There are no prior exams for comparison. There is left supraorbital/periorbi babar soft tissue swelling with laceration. No discrete radiopaque foreign body is identified. There is no acute orbital fracture identified. The globes and orbits appear grossly normal for age. There is no intraconal or extraconal inflammation or fluid. There is paranasal sinus mucosal thickening with left maxillary sinus air-fluid level. Bilateral ostiomeatal units are patent. IMPRESSION: 1. Left supraorbital/periorbi babar soft tissue swelling with laceration. 2. No acute orbital fracture identified. 3. Paranasal sinus mucosal thickening with left maxillary sinus air-fluid level. 4. Intact bilateral globes. There is no intraconal or extraconal inflammation or fluid. Electronically authenticated by: KENY GREENE Date: 2021-08-26 10:03 Normal [facility] CBC W MANUAL DIFFon 08-23-19 22 ATYPICAL LYMPH # Normal [facility] Comment on above: Performed By: #### D DIM #### [facility] [address] [place] [address] Dr. Sea Pugh ATYPICAL LYMPH % Normal [facility] Comment on above: Performed By: #### D DIM #### [facility] [address] [place] [address] Dr. Sea Pugh BAND # Normal 0.0-0.3 [facility] Comment on above: Performed By: #### D DIM #### [facility] [address] [place] [address] Dr. Sea Pugh BAND % Normal 0-5 [facility] Comment on above: Performed By: #### D DIM #### [facility] [address] [place] [address] Dr. Sea Pugh BASOM # 0.00 103/ul Normal 0.00-0.10 [facility] Comment on above: Performed By: #### D DIM #### [facility] [address] [place] [address] Dr. Sea Pugh BASOM % 0.0 % Critically low 0.2-2.0 [facility] Comment on above: Performed By: #### D DIM #### [facility] [address] [place] [address] Dr. Sea Pugh BLAST # Normal [facility] Comment on above: Performed By: #### D DIM #### [facility] [address] [place] [address] Dr. Sea Pugh BLAST % Normal [facility] Comment on above: Performed By: #### D DIM #### [facility] [address] [address] [address] Sea Pugh CORRECTED WBC Normal 4.0-11.[address] [facility] Comment on above: Performed By: #### D DIM #### [facility] [address] [place] [address] Dr. Sea Pugh EOS # 0.21 103/ul Normal 0.00-0.70 [facility] Comment on above: Performed By: #### D DIM #### [facility] [address] [place] [address] Dr. Sea Pugh EOS% 2.0 % Normal 0.9-7.0 [facility] Comment on above: Performed By: #### D DIM #### [facility] [address] [place] [address] Dr. Sea Pugh HCT 41.3 % Critically low 42.0-54.0 [facility] Comment on above: Performed By: #### D DIM #### [facility] [address] [place] [address] Dr. Sea Pugh HGB 14.1 g/dl Normal 14.0-18.0 [facility] Comment on above: Performed By: #### D DIM #### [facility] [address] [place] [address] Dr. Sea Pugh LYMPHM # 1.14 103/ul Critically low 1.20-3.80 [facility] Comment on above: Performed By: #### D DIM #### [facility] [address] [place] [address] Dr. Sea Pugh LYMPHM% 11.0 % Critically low 20.5-60.0 [facility] Comment on above: Performed By: #### D DIM #### [facility] [address] [place] [address] Dr. Sea Pugh MCH 30.9 pg Normal 25.9-34.0 [facility] Comment on above: Performed By: #### D DIM #### [facility] [address] [place] [address] Dr. Sea Pugh MCHC 34.1 g/dl Normal 29.9-35.2 [facility] Comment on above: Performed By: #### D DIM #### [facility] [address] [address] [address] Sea Pugh MCV 90.4 fL Normal 80.0-94.0 [facility] Comment on above: Performed By: #### D DIM #### [facility] [address] [place] [address] Dr. Sea Pugh METAMYELOCYTE # Normal [facility] Comment on above: Performed By: #### D DIM #### [facility] [address] [place] [address] Dr. Sea Pugh METAMYELOCYTE % Normal [facility] Comment on above: Performed By: #### D DIM #### [facility] [address] [place] [address] Dr. Sea Pugh MONOM# 1.98 103/ul Critically high 0.30-0.80 [facility] Comment on above: Performed By: #### D DIM #### [facility] [address] [place] [address] Dr. Sea Pugh MONOM% 19.0 % Critically high 1.7-12.0 [facility] Comment on above: Performed By: #### D DIM #### [facility] [address] [place] [address] Dr. Sea Pugh MPV 9.7 fL Normal 9.5-13.5 [facility] Comment on above: Performed By: #### D DIM #### [facility] [address] [place] [address] Dr. Sea Pugh MYELOCYTE # Normal [facility] Comment on above: Performed By: #### D DIM #### [facility] [address] [place] [address] Dr. Sea Pugh MYELOCYTE % Normal [facility] Comment on above: Performed By: #### D DIM #### [facility] [address] [place] [address] Dr. Sea Pugh NRBC Normal [facility] Comment on above: Performed By: #### D DIM #### [facility] [address] [address] [address] Sea Pugh PLT 259 103/ul Normal 150-450 [facility] Comment on above: Performed By: #### D DIM #### [facility] [address] [address] [address] Sea Pugh RBC 4.57 106/ul Critically low 4.70-6.10 [facility] Comment on above: Performed By: #### D DIM #### [facility] [address] [address] [address] Sea Pugh RDW 13.4 % Normal 11.0-15.0 [facility] Comment on above: Performed By: #### D DIM #### [facility] [address] [place] [address] Dr. Sea Pugh SEG # 7.07 103/ul Critically high 1.40-6.50 [facility] Comment on above: Performed By: #### D DIM #### [facility] [address] [place] [address] Dr. Sea Pugh SEG % 68.0 % Normal 43.0-75.0 [facility] Comment on above: Performed By: #### D DIM #### [facility] [address] [place] [address] Dr. Sea Pugh WBC 10.4 103/ul Normal 4.0-11.0 [facility] Comment on above: Performed By: #### D DIM #### [facility] [address] [place] [address] Dr. eSa Pugh PROF CHEM 8 (BAS METB)on Anion gap [Moles/Vol] 13.5 mmol/L Normal [facility] Comment on above: Performed By: #### H STROPN, CMP, CRP #### [facility] [address] [place] [address] Dr. Sea Pugh Calcium [Mass/Vol] 8.7 mg/dL Normal 8.5-10.1 [facility] Comment on above: Performed By: #### H STROPN, CMP, CRP #### [facility] [address] [place] [address] Dr. Sea Pugh Chloride [Moles/Vol] 97 mmol/L Critically low 98-107 [facility] Comment on above: Performed By: #### H STROPN, CMP, CRP #### [facility] [address] [address] [address] Sea Pugh CO2 [Moles/Vol] 24.2 mmol/L Normal 21.0-32.0 [facility] Comment on above: Performed By: #### H STROPN, CMP, CRP #### [facility] [address] [address] [address] Sea Pugh Creatinine [Mass/Vol] 1.26 mg/dL Normal 0.70-1.30 [facility] Comment on above: Performed By: #### H STROPN, CMP, CRP #### [facility] [address] [address] [address] Sea Pugh EGFR-AF [place]TH [place]OREAN >60 Normal >=60 [facility] Comment on above: Performed By: #### H STROPN, CMP, CRP #### [facility] [address] [address] [address] Sea Pugh EGFR-NON AF [place] 56 mL/min/1.73m2 Critically low >=60 [facility] Comment on above: Performed By: #### H STROPN, CMP, CRP #### [facility] [address] [address] [address] Sea Pugh Glucose [Mass/Vol] 201 mg/dL Critically high 74-106 [facility] Comment on above: Performed By: #### H STROPN, CMP, CRP #### [facility] [address] [address] [address] Sea Pugh Potassium [Moles/Vol] 3.7 mmol/L Normal 3.5-5.1 [facility] Comment on above: Performed By: #### H STROPN, CMP, CRP #### [facility] [address] [address] [address] Sea Pugh Sodium [Moles/Vol] 131 mmol/L Critically low 136-145 [facility] Comment on above: Performed By: #### H STROPN, CMP, CRP #### [facility] [address] [place], [place] [address] Dr. Sea Pugh Urea nitrogen [Mass/Vol] 21.0 mg/dL Critically high 7.0-18.0 [facility] Comment on above: Performed By: #### H STROPN, CMP, CRP #### [facility] [address] [place], [place] [address] Dr. Sea Pugh Urea nitrogen/Creatinine [Mass ratio] 16.7 mg/mg Normal [facility] Comment on above: Performed By: #### H STROPN, CMP, CRP #### [facility] [address] [place], [place] [address] Dr. Sea Pugh XR CHEST 2 Von 08-22-2021 XR CHEST 2 V EXAM: XR CHEST 2 V HISTORY: COUGH COMPARISON: CTA chest 11/29/2020 TECHNIQUE: AP FINDINGS: The cardiomediastinal silhouette is within normal limits. The bilateral lung blunt show no evidence for acute consolidation, infiltrate, pneumothorax or pleural effusions. Mild peribronchial thickening visualized. The diaphragmatic and osseous structures are intact with no evidence for an acute osseous abnormality. Mild bibasilar dependent atelectasis visualized. IMPRESSION: Mild peribronchial thickening visualized without evidence for focal consolidation or infiltrate, findings may be secondary to bronchiolitis versus reactive airway disease. Mild bibasilar dependent atelectasis. Electronically authenticated by: VICENTA MARCH Date: 2021-08-22 05:46 Normal [facility] XR SINUSES 3 VIEWS OR GREATE Billy 08-22-2021 XR SINUSES 3 VIEWS OR GREATER XR SINUSES 3 VIEWS OR GREATER 08/22/2021 4:34 AM EDT Indication: COUGH Technique: Routine radiographs of the sinuses were obtained. Comparison: None. Findings: Pneumatized portions of the skull are clear. Visualized osseous structures are normal in alignment and mineralization. No fractures noted. No joint destruction or dislocation. Soft tissues are unremarkable for age. Impression: No acute findings. No evidence of significant sinus disease. Electronically authenticated by: LOULOU DAVIS Date: 2021-08-22 06:31 Normal [facility] Tobacco Screening.on 022 Adult depression screening assessment No [facility] 250 DO Work Phone: Fall risk assessment a) No falls within the last year [facility] 250 DO Work Phone: Tobacco use status [facility] b) No [facility] 250 DO Work Phone: Vital Signs Date Time Vital Sign Value Performing Clinician Facility 03-17-2024 11:51-0500 Body height 185.4 cm Marciano Hi DPM Work Phone: [facility] 03-17-2024 11:51-0500 Body mass index (BMI) [Ratio] 27.97 kg/m2 Marciano [facility] DPM Work Phone: [facility] 03-17-2024 11:51-0500 Body weight 96.16 kg Marciano Hi DPM Work Phone: [facility] 03-17-2024 11:51-0500 Respiratory rate 18 /min Marciano Hi DPM Work Phone: [facility] 01-28-2024 14:56-0500 Body height 185.4 cm Veronica Liz MD Work Phone: [facility] 01-28-2024 14:56-0500 Body mass index (BMI) [Ratio] 27.31 kg/m2 Veronica Liz MD Work Phone: [facility] 01-28-2024 14:56-0500 Body weight 93.89 kg Veronica Liz MD Work Phone: [facility] 01-28-2024 14:56-0500 Diastolic blood pressure 66 mm[Hg] Veronica Liz MD Work Phone: [facility] 01-28-2024 14:56-0500 Heart rate 55 /min Veronica Liz MD Work Phone: [facility] 01-28-2024 14:56-0500 Systolic blood pressure 118 mm[Hg] Veronica Liz MD Work Phone: [facility] 01-07-2024 13:51-0400 Body height 185.4 cm Marciano Hi DPM Work Phone: [facility] 01-07-2024 13:51-0400 Body mass index (BMI) [Ratio] 27.97 kg/m2 Marciano Hi DPM Work Phone: [facility] 01-07-2024 13:51-0400 Body weight 96.16 kg Marciano Brown DPM Work Phone: [facility] 01-07-2024 13:51-0400 Diastolic blood pressure 77 mm[Hg] Marciano Hi DPM Work Phone: [facility] 01-07-2024 13:51-0400 Heart rate 81 /min Marciano Hi DPM Work Phone: [facility] 01-07-2024 13:51-0400 Systolic blood pressure 131 mm[Hg] Marciano Hi DPM Work Phone: [facility] 07-30-2023 15:50-0400 Diastolic blood pressure 82 mm[Hg] Veronica Liz MD Work Phone: [facility] 07-30-2023 15:50-0400 Systolic blood pressure 132 mm[Hg] Veronica Liz MD Work Phone: [facility] 07-30-2023 14:47-0400 Body height 185.4 cm Veronica Liz MD Work Phone: [facility] 07-30-2023 14:47-0400 Body mass index (BMI) [Ratio] 28.1 kg/m2 Veronica Liz MD Work Phone: [facility] 07-30-2023 14:47-0400 Body weight 96.62 kg Veronica Liz MD Work Phone: [facility] 07-30-2023 14:47-0400 Heart rate 96 /min Veronica Liz MD Work Phone: [facility] 01-29-2023 14:35-0500 Body height 185.4 cm Veronica Liz MD Work Phone: [facility] 01-29-2023 14:35-0500 Body mass index (BMI) [Ratio] 28.89 kg/m2 Veronica Liz MD Work Phone: [facility] 01-29-2023 14:35-0500 Body weight 99.34 kg Veronica Liz MD Work Phone: [facility] 01-29-2023 14:35-0500 Diastolic blood pressure 74 mm[Hg] Veronica Liz MD Work Phone: [facility] 01-29-2023 14:35-0500 Heart rate 62 /min Veronica Liz MD Work Phone: [facility] 01-29-2023 14:35-0500 Systolic blood pressure 132 mm[Hg] Veronica Liz MD Work Phone: [facility] 08-06-2022 13:15-0400 Body height 185.42 cm Valente P [place]key[place] Work Phone: [facility] [address] [place] Work Phone: 08-06-2022 13:15-0400 Body mass index (BMI) [Ratio] 28.23 kg/m2 Valente P House Work Phone: [facility] [address] [place] Work Phone: 08-06-2022 13:15-0400 Body surface area Derived from formula 2.21 m2 Valente P House Work Phone: [facility] [address] [place] Work Phone: 08-06-2022 13:15-0400 Body weight 97.07 kg Valente P House Work Phone: [facility] [address] [place] Work Phone: 08-06-2022 13:15-0400 Diastolic blood pressure 68 mm[Hg] Valente P House Work Phone: [facility] [address] [place] Work Phone: 08-06-2022 13:15-0400 Heart rate 57 /min Valetne P House Work Phone: [facility] [address] [place] Work Phone: 08-06-2022 13:15-0400 Systolic blood pressure 132 mm[Hg] Valente P House Work Phone: [facility] [address] [place] Work Phone: 06-06-2022 09:22-0400 Body height 185.42 cm Valente P House Work Phone: [facility] [address] [place] Work Phone: 06-06-2022 09:22-0400 Body mass index (BMI) [Ratio] 27.84 kg/m2 Valente P House Work Phone: [facility] [address] [place] Work Phone: 06-06-2022 09:22-0400 Body surface area Derived from formula 2.2 m2 Valente P House Work Phone: [facility] [address] [place] Work Phone: 06-06-2022 09:22-0400 Body weight 95.71 kg Valente P House Work Phone: [facility] [address] [place] Work Phone: 06-06-2022 09:22-0400 Diastolic blood pressure 62 mm[Hg] Valente P House Work Phone: [facility] [address] [place] Work Phone: 06-06-2022 09:22-0400 Heart rate 80 /min Valente Ortega House Work Phone: [facility] [address] [place] Work Phone: 06-06-2022 09:22-0400 Systolic blood pressure 134 mm[Hg] Valente P House Work Phone: [facility] [address] [place] Work Phone: 06-05-2022 13:14-0400 Body height 185.42 cm Valente P House Work Phone: [facility] [address] [place] Work Phone: 06-05-2022 13:14-0400 Body mass index (BMI) [Ratio] 27.84 kg/m2 Valente P House Work Phone: [facility] [address] [place] Work Phone: 06-05-2022 13:14-0400 Body surface area Derived from formula 2.2 m2 Valente Ortega House Work Phone: [facility] [address] [place] Work Phone: 06-05-2022 13:14-0400 Body weight 95.71 kg Valente P House Work Phone: [facility] [address] [place] Work Phone: 06-05-2022 13:14-0400 Diastolic blood pressure 70 mm[Hg] Valente Ortega House Work Phone: [facility] [address] [place] Work Phone: 06-05-2022 13:14-0400 Heart rate 126 /min Valente P House Work Phone: [facility] [address] [place] Work Phone: 06-05-2022 13:14-0400 Systolic blood pressure 124 mm[Hg] Valente Ortega House Work Phone: [facility] [address] [place] Work Phone: 12-04-2021 10:00-0400 Diastolic blood pressure 83 mm[Hg] Neal Velázquez MD Work Phone: [facility] 12-04-2021 10:00-0400 Heart rate 82 /min Neal Velázquez MD Work Phone: [facility] [employer] 12-04-2021 10:00-0400 Respiratory rate 18 /min Neal Velázquez MD Work Phone: [facility] [employer] 12-04-2021 10:00-0400 SaO2% (BldA) [Mass fraction] 95 % Neal Velázquez MD Work Phone: [facility] [employer] 12-04-2021 10:00-0400 Systolic blood pressure 130 mm[Hg] Neal Velázquez MD Work Phone: [facility] [employer] 12-04-2021 08:00-0400 Body temperature 97.9 [degF] Neal Velázquez MD Work Phone: [facility] [employer] 11-28-2021 03:30-0400 Body height 185.4 cm Neal Velázquez MD Work Phone: [facility] [employer] 11-28-2021 03:30-0400 Body mass index (BMI) [Ratio] 27.34 kg/m2 Neal Velázquez MD Work Phone: [facility] [employer] 11-28-2021 03:30-0400 Body weight 94 kg Neal Velázquez MD Work Phone: [facility] [employer] 11-27-2021 14:19-0400 Diastolic blood pressure 88 mm[Hg] Valente P House Work Phone: [facility] [address] [place] Work Phone: 11-27-2021 14:19-0400 Systolic blood pressure 139 mm[Hg] Valente P House Work Phone: [facility] [address] [place] Work Phone: 11-27-2021 13:40-0400 Body height 185.42 cm Valente P House Work Phone: [facility] [address] [place] Work Phone: 11-27-2021 13:40-0400 Body mass index (BMI) [Ratio] 28.63 kg/m2 Valente P [place] Work Phone: [facility] [address] [place] Work Phone: 11-27-2021 13:40-0400 Body surface area Derived from formula 2.23 m2 Valente P [place] Work Phone: [facility] [address] [place] Work Phone: 11-27-2021 13:40-0400 Body weight 98.43 kg Valente P [place] Work Phone: [facility] [address] [place] Work Phone: 11-27-2021 13:40-0400 Diastolic blood pressure 80 mm[Hg] Valente Ortega [place] Work Phone: [facility] [address] [place] Work Phone: 11-27-2021 13:40-0400 Heart rate 61 /min Valente Ortega [place] Work Phone: [facility] [address] [place] Work Phone: 11-27-2021 13:40-0400 Systolic blood pressure 174 mm[Hg] Valente Ortega [place] Work Phone: [facility] [address] [place] Work Phone: 09-17-2021 12:15-0400 Body height 185.42 cm Saurabh Olexa Other [facility] Other 09-17-2021 12:15-0400 Body mass index (BMI) [Ratio] 28.49 kg/m2 Saurabh Olexa Other [facility] Other 09-17-2021 12:15-0400 Body weight 97.98 kg Saurabh Olexa Other [facility] Other 08-29-2021 10:30-0400 Body height 185.42 cm Saurabh Olexa Other [facility] Other 08-29-2021 10:30-0400 Body mass index (BMI) [Ratio] 28.49 kg/m2 Saurabh Olexa Other [facility] Other 08-29-2021 10:30-0400 Body weight 97.98 kg Saurabh Olexa Other [facility] Other 05-22-2021 13:17-0500 Body height 185.42 cm Valente P [place] Work Phone: [facility] [address] [place] Work Phone: 05-22-2021 13:17-0500 Body mass index (BMI) [Ratio] 29.95 kg/m2 Valente P [place] Work Phone: [facility] [address] [place] Work Phone: 05-22-2021 13:17-0500 Body surface area Derived from formula 2.27 m2 Valente P [place] Work Phone: [facility] [address] [place] Work Phone: 05-22-2021 13:17-0500 Body weight 102.97 kg Valente P House Work Phone: [facility] [address] [place] Work Phone: 05-22-2021 13:17-0500 Diastolic blood pressure 74 mm[Hg] Valente P House Work Phone: [facility] [address] [place] Work Phone: 05-22-2021 13:17-0500 Heart rate 60 /min Valente P House Work Phone: [facility] [address] [place] Work Phone: 05-22-2021 13:17-0500 Systolic blood pressure 137 mm[Hg] Valente Martinez Work Phone: [facility] [address] [place] Work Phone: Encounters Encounter Date Encounter Type Care Provider Facility Start: 03-17-2024 End: 03-17-2024 Bamboo flowsheet Marciano Hi DPM Work Phone: [facility] Start: 03-17-2024 End: 03-17-2024 Bamboo flowsheet Marciano Hi DPM Work Phone: [facility] Start: 03-17-2024 End: 03-17-2024 Office outpatient visit 10 minutes Marciano Hi DPM Work Phone: [facility] Comment on above: Xerosis cutis (Prima ry Dx); Diabetes 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, unspecified whether it systems manager insulin use ([facility]); Pain due to onychomycosis of toenails of both feet; Right foot drop Start: 03-17-2024 End: 03-17-2024 ambulatory MARCIANO HI Not Available Start: 01-28-2024 End: 01-28-2024 Office outpatient visit 25 minutes Veronica Liz MD Work Phone: [facility] Comment on above: Persistent atrial fi brillation (Multi) (Primary Dx); Single vessel coronary disease; Mixed hyperlipidemia; Essential hypertension; Anemia, unspecified type; Cerebrovascular accident (CVA), unspecified mechanism (Multi); High risk medication use; Former smoker; BMI 27.0-27.9,adult Start: 01-28-2024 End: 01-28-2024 ambulatory [facility] Amb[facility] Start: 01-07-2024 End: 01-07-2024 Bamboo flowsheet Marciano Hi DPM Work Phone: [facility] Start: 01-07-2024 End: 01-07-2024 Bamboo flowsheet Marciano Hi DPM Work Phone: [facility] Start: 01-07-2024 End: 01-07-2024 Office outpatient visit 15 minutes Marciano Hi DPM Work Phone: [facility] Comment on above: Xerosis cutis (Prima ry Dx); Onychomycosis; Pain due to onychomycosis of toenails of both feet; Right foot drop Start: 01-07-2024 End: 01-07-2024 ambulatory MARCIANO IH Not Available Start: 10-29-2023 End: 10-29-2023 ambulatory MARCIANO HI Not Available Start: 08-13-2023 End: 08-13-2023 ambulatory MARCIANO HI Not Available Start: 07-30-2023 End: 07-30-2023 Office outpatient visit 25 minutes Veronica Liz MD Work Phone: [facility] Comment on above: High risk medication use (Primary Dx); Single vessel coronary disease; Essential hypertension; Mixed hyperlipidemia; Persistent atrial fibrillation (Multi); BMI 28.0-28.9,adult; Cerebrovascular accident (CVA), unspecified mechanism (Multi); Anemia, unspecified type; Former smoker Start: 07-30-2023 End: 07-30-2023 ambulatory [facility] Amb[facility] Start: 06-04-2023 End: 06-04-2023 ambulatory MARCIANO HI Not Available Start: 01-29-2023 End: 01-29-2023 Office outpatient visit 25 minutes Veronica Liz MD Work Phone: [facility] Comment on above: Single vessel carvalho ry disease (Primary Dx); Essential hypertension; Mixed hyperlipidemia; Persistent atrial fibrillation (CMS/HCC); Anemia, unspecified type; BMI 28.0-28.9,adult Start: 08-25-2022 Rx Renewal Valente saul Work Phone: [facility] [address] [place] Work Phone: Start: 08-06-2022 ambulatory Vreonica Moyi lity: Start: 07-03-2022 Rx Renewal Valente P Hous e Work Phone: [facility] [address] [place] Work Phone: Start: 06-06-2022 FUV, Provider: Veronica Liz, Status: Pen, Time: 9:40 AM Valente P House Work Phone: [facility] [address] [place] Work Phone: Start: 06-06-2022 Office outpatient vi sit 10 minutes Valente P House Work Phone: [facility] [address] [place] Work Phone: Start: 06-06-2022 ambulatory Rosyleila Liz Faci lity: Start: 06-05-2022 Office outpatient vi sit 40 minutes Valente P House Work Phone: [facility] [address] [place] Work Phone: Start: 06-05-2022 ambulatory Mohancami Igorvanessa Faci lity: Start: 05-14-2022 End: 05-15-[address] VALENTE MARTINEZ Facility:[facility]1 Start: 04-20-2022 End: 04-21-[address] VALENTE MARTINEZ Facility:[facility] Start: 02-17-2022 Rx Renewal Valente P Hous e Work Phone: [facility] [address] DO Work Phone: Start: 12-20-2021 End: 12-21-[address] VALENTE MARTINEZ Facility:[facility] Start: 12-05-2021 End: 12-06-[address] VALENTE MARTINEZ Facility:[facility]1 Start: 11-28-2021 End: 12-04-2021 Evaluation and management of inpatient BENITA PATTERSON [facility] Start: 11-28-2021 End: 12-04-2021 Evaluation and management of inpatient Neal Velázquez MD Work Phone: [facility] Neuro ICU Comment on above: Cerebrovascular acci dent (CVA), unspecified mechanism (HCC) (Primary Dx); Hyponatremia Start: 11-28-2021 End: 11-28-[address] BENITA PATTERSON . Facility:[facility]1 Start: 11-27-2021 Office outpatient vi sit 25 minutes Valente Martinez Work Phone: [employer] [facility] [address] DO Work Phone: Start: 11-27-2021 ambulatory Veronica Liz Faci lity: Start: 11-18-2021 Rx Renewal Valente saul Work Phone: [employer] [facility] [address] DO Work Phone: Start: 09-23-2021 ambulatory Jeevan Ryanahim Facility :[id number] Start: 09-23-2021 End: 09-23-2021 ambulatory Jeevan [facility] Facility:[facility] Start: 09-22-2021 End: 09-23-[address] ANN MANLEY Facility:[facility]1 Start: 09-17-2021 End: 09-17-2021 ambulatory Saurabh Olexa Other [facility] Other Start: 09-17-2021 Postop follow up vis it related to original px Saurabh Olexa [facility] Start: 08-29-2021 End: 08-29-2021 ambulatory Saurabh Olexa Other [facility] Other Start: 08-29-2021 FQ visit new patient Saurabh Brothersxa [facility] Start: 08-26-2021 End: 08-26-[address] VALENTE MARTINEZ Facility:[facility]1 Start: 08-22-2021 End: 08-22-[address] VALENTE MARTINEZ Facility:[facility]1 Start: 05-22-2021 Office outpatient vi sit 25 minutes Valente Martinez Work Phone: [employer] [facility] [address] DO Work Phone: Start: 06-10-2018 Patient encounter procedure VERONICA LIZ Facility:[id number] Procedures Date Procedure Procedure Detail Performing Clinician Start: 01-28-2024 Ecg routine ecg w/le ast 12 lds w/i&r Veronica Liz MD Work Phone: Start: 07-30-2023 ECG 12-LEAD VERONICA TRENT MARY CARMEN Start: 07-30-2023 FOLLOW UP IN CARDIOLOGY VERONICA LIZ Start: 07-30-2023 Ecg routine ecg w/le ast 12 lds w/i&r Veronica Liz MD Work Phone: Start: 01-29-2023 Ecg routine ecg w/le ast 12 lds w/i&r Veronica Liz MD Work Phone: Start: 12-04-2021 Glucose blood reagent strip Allan Chirri DO Work Phone: Start: 12-04-2021 Basic metabolic pane l calcium total Adina Do RESIDUE FURNACE OPERATOR - COARSE WIRE DRAWER Work Phone: Start: 12-03-2021 Glucose blood reagent strip Allan Chirri DO Work Phone: Start: 12-03-2021 End: 12-03-2021 Assay of osmolality urine Mohammad I Mas haydee DO Work Phone: Start: 12-03-2021 Glucose blood reagent strip Allan Chirri DO Work Phone: Start: 12-03-2021 Basic metabolic pane l calcium total Adinamyranda Do RESIDUE FURNACE OPERATOR - [employer]ARSE WIRE DRAWER Work Phone: Start: 12-02-2021 Glucose blood reagent strip Allan Chirri DO Work Phone: Start: 12-02-2021 Glucose blood reagent strip Allan Chirri DO Work Phone: Start: 12-02-2021 Ecg routine ecg w/le ast 12 lds trcg only w/o i&r Gilles P Blood DO Work Phone: Start: 12-02-2021 Glucose blood reagent strip Allan Chirri DO Work Phone: Start: 12-02-2021 End: 12-02-2021 Assay of troponin quantitative Danielle Holguin MD Work Phone: Start: 12-02-2021 Assay of magnesium Martha Holguin MD Work Phone: Start: 12-02-2021 Ecg routine ecg w/le ast 12 lds i&r only Allan Chirri DO Work Phone: Start: 12-01-2021 Urnls dip stick/tabl et reagent auto microscopy Debbie Villalobos MD Work Phone: Start: 12-01-2021 Glucose blood reagent strip Allan Chirri DO Work Phone: Start: 12-01-2021 Glucose blood reagent strip Allan Chirri DO Work Phone: Start: 12-01-2021 Glucose blood reagent strip Allan Chirri DO Work Phone: Start: 12-01-2021 Glucose blood reagent strip Allan Chirri DO Work Phone: Start: 12-01-2021 Glucose blood reagent strip Allan Chirri DO Work Phone: Start: 12-01-2021 Basic metabolic pane l calcium total Amanda Garcia RESIDUE FURNACE OPERATOR - [employer]ARSE WIRE DRAWER Work Phone: Start: 11-30-2021 Glucose blood reagent strip Allan Chirri DO Work Phone: Start: 11-30-2021 Echo tthrc r-t 2d w/wom-mode compl spec&colr d Yolie Cabrera MD Work Phone: Start: 11-30-2021 Glucose blood reagent strip Allan Chirri DO Work Phone: Start: 11-30-2021 End: 11-30-2021 Basic metabolic panel calcium total Amanda Garcia RESIDUE FURNACE OPERATOR - [employer]ARSE WIRE DRAWER Work Phone: Start: 11-29-2021 Glucose blood reagent strip Allan Chirri DO Work Phone: Start: 11-29-2021 Glucose blood reagent strip Neal Velázquez MD Work Phone: Start: 11-29-2021 Ecg routine ecg w/le ast 12 lds i&r only Marilu Atkins RESIDUE FURNACE OPERATOR - [employer]ARSE WIRE DRAWER Work Phone: Start: 11-29-2021 Glucose blood reagent strip Neal Velázquez MD Work Phone: Start: 11-29-2021 Assay of magnesium Neal Velázquez MD Work Phone: Start: 11-29-2021 Ct head/brain w/o co ntrast material Isidro Mehta MD Work Phone: Start: 11-29-2021 Glucose blood reagent strip Neal Velázquez MD Work Phone: Start: 11-29-2021 Basic metabolic pane l calcium total Amanda M Jose RESIDUE FURNACE OPERATOR - [employer]ARSE WIRE DRAWER Work Phone: Start: 11-29-2021 Glucose blood reagent strip Neal Velázquez MD Work Phone: Start: 11-28-2021 Glucose blood reagent strip Neal Velázquez MD Work Phone: Start: 11-28-2021 Glucose blood reagent strip Neal Velázquez MD Work Phone: Start: 11-28-2021 Glucose blood reagent strip Neal Velázquez MD Work Phone: Start: 11-28-2021 Glucose blood reagent strip Neal Velázquez MD Work Phone: Start: 11-28-2021 Mri brain brain stem w/o w/contrast material Isidro Mehta MD Work Phone: Start: 11-28-2021 Assay of magnesium Neal Velázquez MD Work Phone: Start: 11-28-2021 Lipid panel Neal Velázquez MD Work Phone: Start: 11-28-2021 End: 11-28-2021 CULTURE, BLOOD 1 Neal Velázquez MD Work Phone: Start: 11-28-2021 Ct angiography neck w/contrast/noncontrast Isidro Mehta MD Work Phone: Start: 11-28-2021 Ct head/brain w/o co ntrast material Isidro Mehta MD Work Phone: Start: 11-28-2021 Basic metabolic pane l calcium total Neal Velázquez MD Work Phone: Cataract surgery Valente Ortega H ouse Work Phone: Colonoscopy Valente P House Work Phone: Elbow joint operations Charl es P House Work Phone: Operation on gallbladder Chelsea rles P House Work Phone: Procedure on back Valente P House Work Phone: Tonsillectomy Valente Ortega Hous e Work Phone: Vasectomy Valente P House Work Phone: Plan of Treatment Date Care Activity Detail Author Start: 08-03-2024 End: 08-03-2024 Patient encounter procedure 08/03/2024 3:30 PM EDT Office Visit [facility] [address] [facility] [address] [place] [id number] Veronica Liz MD [address] [facility] [place] [address] [place] [address] [facility] Start: 05-26-2024 End: 05-26-2024 Patient encounter procedure 05/26/2024 1:40 PM EST Procedure Visit [facility] [address] [facility] [address] [place] [id number] Marciano Hi DPM [address] [address] [facility] Start: 03-17-2024 End: 03-17-2024 Patient encounter procedure 03/17/2024 1:50 PM EST Procedure Visit [facility] [address] [facility] [address] [place] [phone] Marciano Hi DPM [address] [address] [facility] Start: 03-17-2024 End: 03-17-2024 Patient encounter procedure 03/17/2024 11:50 AM EST [facility] [address] [facility] [address] [place] [phone] Marciano Hi DPM [address] [address] Diabetes 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, unspecified whether it systems manager insulin use (CMS/HCC) (Primary Dx); Pain due to onychomycosis of toenails of both feet; Right foot drop; Xerosis cutis [facility] Comment on above: Diabetes mellitus du e to underlying condition with diabetic polyneuropathy, unspecified whether penitentiary insulin use (CMS/HCC) (Primary Dx); Pain due to onychomycosis of toenails of both feet; Right foot drop; Xerosis cutis Start: 01-28-2024 End: 01-28-2024 Patient encounter procedure 01/28/2024 3:10 PM EST Office Visit [facility] [address] [facility] [address] [place] [address] Veronica Liz MD [address] [facility] [place] [address] [place] [address] [facility] Start: 01-07-2024 End: 01-07-2024 Patient encounter procedure 01/07/2024 2:00 PM EDT Procedure Visit [facility] [address] [phone] Marciano Hi DPM [address] [address] Onychomycosis (Primary Dx); Pain due to onychomycosis of toenails of both feet; Right foot drop; Xerosis cutis [facility] Comment on above: Onychomycosis (Prima ry Dx); Pain due to onychomycosis of toenails of both feet; Right foot drop; Xerosis cutis Start: 11-22-2023 COVID-19 Vaccine ( season) COVID-19 Vaccine ( season) [facility] Start: 11-22-2023 Influenza vaccination [facility] Start: 07-30-2023 End: 07-30-2023 Patient encounter procedure 07/30/2023 3:00 PM EDT Office Visit [facility] [address] [facility] [address] [place] [id number] Veronica Liz MD [address] [facility] [address] [place] [address] [place] [address] [facility] Start: 01-29-2023 FUV, Provider: Veronica Liz, Status: Pen, Time: 3:10 PM FUV, Provider: Veronica Liz, Status: Pen, Time: 3:10 PM [facility] [address] [place] Work Phone: Start: 11-28-2022 Diabetes mellitus screening Diabetes Screening [facility] Start: 11-28-2022 Hemoglobin A1c measurement A1C test (Diabetic or Prediabetic) [facility] Start: 11-28-2022 Lipid panel Lipids [facility] Start: 11-21-2022 COVID-19 Vaccine ( season) COVID-19 Vaccine () [facility] Start: 11-21-2022 Influenza vaccination Influenza Vacc ine (#1) [facility] Start: 08-06-2022 FUV, Provider: Veronica Liz, Status: Pen, Time: 1:30 PM FUV, Provider: Veronica Liz, Status: Pen, Time: 1:30 PM [facility] Work Phone: Start: 06-05-2022 FUV, Provider: Veronica Liz, Status: Pen, Time: 1:20 PM FUV, Provider: Veronica Liz, Status: Pen, Time: 1:20 PM [facility] [employer] 250 DO Work Phone: Start: 02-27-2022 Hemoglobin A1c measurement Diabetes: Hemoglobin A1C [facility] Start: 01-27-2022 End: 01-27-2022 Patient encounter procedure 01/27/2022 Office Visit Neurology Jasmin Corrales MD [address] [place] [address] [address] [email or web address] [facility] Start: 12-31-2021 NURSEVST, Provider: SURJIT TIRADO AGENCY OWNER 1,[id number], Status: Pen, Time: 1:30 PM NURSEVST, Provider: SURJIT TIRADO AGENCY OWNER 1,[id number], Status: Pen, Time: 1:30 PM [facility] DO Work Phone: Start: 12-19-2021 End: 11-30-2022 CT HEAD WO CONTRAST CT HEAD WO CONTRAST Imaging Routine Cerebrovascular accident (CVA), unspecified mechanism (HCC) Expected: 12/19/2021, Expires: 11/30/2022 [email or web address] Phone: Comment on above: Expected: 12/19/2021 , Expires: 11/30/2022 Start: 12-10-2021 End: 01-02-2022 Basic metabolic 2000 panel - Serum or Plasma Basic Metabolic Panel Lab Routine Hyponatremia Expected: 12/10/2021, Expires: 01/02/2022 [employer] Phone: Comment on above: Expected: 12/10/2021 , Expires: 01/02/2022 Start: 11-27-2021 FUV, Provider: Veronica Liz, Status: Pen, Time: 1:30 PM FUV, Provider: Veronica Liz, Status: Pen, Time: 1:30 PM [facility] [employer] [place] 250 DO Work Phone: Start: 11-21-2021 Influenza vaccination Flu vaccine (# 1) [facility] Start: 2021 RSV High Risk: (Elde rly (60+) or Population) (1 - 1-dose 75+ series) RSV High Risk: (Elderly (60+) or Population) (1 - 1-dose 75+ series) [facility] Start: 05-18-2021 COVID-19 Vaccine (4 - Booster for Pfizer series) COVID-19 Vaccine (4 - Booster for Pfizer series) [facility] Start: 03-12-2021 COVID-19 Vaccine (4 - Pfizer series) COVID-19 Vaccine (4 - Pfizer series) [facility] Start: 10-24-2011 Abdominal aortic aneurysm screening AAA screen [facility] Start: 2006 RSV patient s and/or patients aged 60+ years (1 - 1-dose 60+ series) RSV patients and/or patients aged 60+ years (1 - 1-dose 60+ series) [facility] Start: 1996 Shingles vaccine (1 of 2) Shingles vaccine (1 of 2) [facility] Start: 1996 Zoster Vaccines (1 o f 2) Zoster Vaccines (1 of 2) [facility] Start: 10-24-1991 Screening for malign ant neoplasm of colon [facility] Start: 1968 DTaP/Tdap/Td Vaccine s (1 - Tdap) DTaP/Tdap/Td Vaccines (1 - Tdap) [facility] Start: 1965 DTaP/Tdap/Td vaccine (1 - Tdap) DTaP/Tdap/Td vaccine (1 - Tdap) [facility] Start: 1965 Urine screening for protein Diabetes: Urine Protein Screening [facility] Start: 1964 Diabetic retinal exam Diabetic retin al exam [facility] Start: 1964 Hepatitis C screening B ON [facility] Start: 1958 Depression Screen Depression Screen [facility] Start: 1956 Diabetic foot examination Diabetic foot exam [facility] Start: 1956 Glaucoma screening Diabetes: R etinopathy Screening [facility] Start: 1952 Pneumococcal 65+ yea rs Vaccine (1 - PCV) Pneumococcal 65+ years Vaccine (1 - PCV) [facility] Start: 1952 Pneumococcal Vaccine : 65+ Years (1 - PCV) Pneumococcal Vaccine: 65+ Years (1 - PCV) [facility] Start: 1952 Pneumococcal Vaccine : 65+ Years (1 of 2 - PCV) Pneumococcal Vaccine: 65+ Years (1 of 2 - PCV) [facility] Start: 1946 Annual Wellness Visi t (AWV) Annual Wellness Visit (AWV) [facility] Start: [address] Lip[address] Lipid Panel [facility] Start: 1946 Medicare Annual Wellness (AWV) Medicare Annual Wellness (AWV) [facility] Start: 1946 Medicare Annual Wellness Visit Medicare Annual Wellness Visit (AWV) [facility] End: 12-05-2021 Basic metabolic 2000 panel - Serum or Plasma Basic Metabolic Panel Lab Routine Daily for 3 Days starting 12/03/2021 until 12/05/2021, 2 completed [employer] Phone: Comment on above: Daily for 3 Days sta rting 12/03/2021 until 12/05/2021, 2 completed End: 12-05-2021 CBC W Auto Differential panel - Blood CBC with Auto Differential Lab Routine Daily for 3 Days starting 12/03/2021 until 12/05/2021, 2 completed [employer] Phone: Comment on above: Daily for 3 Days sta rting 12/03/2021 until 12/05/2021, 2 completed Continuous pulse oximetry Pulse oximetry, continuous Respiratory Care Routine Every 4hr until discontinued starting 11/28/2021 [employer] Phone: Comment on above: Every 4hr until disc ontinued starting 11/28/2021 Glucose [Mass/volume ] in Serum or Plasma [employer] Phone: Comment on above: 4X Daily (AC & HS) u ntil discontinued starting 11/28/2021 As Needed until disc ontinued starting 11/28/2021 Oxygen therapy [Mini [facility] Data Set] Initiate Oxygen Therapy Protocol Respiratory Care Routine As Needed until discontinued starting 11/28/2021 [employer] Phone: Comment on above: As Needed until disc ontinued starting 11/28/2021 End: 11-28-2021 LOADING SUPERVISOR clinical swallow evaluation LOADING SUPERVISOR clinical swallow evaluation LOADING SUPERVISOR Routine One Time for 1 Occurrences starting 11/28/2021 until 11/28/2021 [employer] Phone: Comment on above: One Time for 1 Occur rences starting 11/28/2021 until 11/28/2021 End: 11-28-2021 Speech and language therapy regime Speech Language Pathology (LOADING SUPERVISOR) eval and treat LOADING SUPERVISOR Routine One Time for 1 Occurrences starting 11/28/2021 until 11/28/2021 [employer] Phone: Comment on above: One Time for 1 Occur rences starting 11/28/2021 until 11/28/2021 Immunizations Immunization Date Immunization Notes Care Provider [facility] 01-15-2021 Pfizer-BioNTech COVID-19 Vacc 30 MCG/0.3ML Intramuscular Suspension [employer] Work Phone: [facility] Comment on above: Series: 06-12-2020 Pfizer-BioNTech COVID-19 Vacc 30 MCG/0.3ML Intramuscular Suspension [employer] Work Phone: [facility] 05-21-2020 Pfizer-BioNTech COVID-19 Vacc 30 MCG/0.3ML Intramuscular Suspension [employer] Work Phone: [facility] Comment on above: Series: 03-23-2017 influenza virus vaccine, unspecified formulation [employer] P [employer] Work Phone: [employer] 250 DO Work Phone: Payers Date Payer Category Payer Self-pay [id number] 2011 Medicare [id number] 1959 Medicare [id number] 1945 Unknown [id number] 2.16.8 40.1.902203.3.579.2.355 1946 Unknown [id number] 2.16. 840.1.059489.3.579.2.175 1946 Unknown [id number] 2.16.84 0.1.464282.3.579.2.593 1946 Unknown [id number] 2.16.84 0.1.314696.3.579.2.593 1946 Unknown [id number] 2.16.84 0.1.168994.3.579.2.593 1946 Unknown [id number] 2.16.84 0.1.638762.3.579.2.593 1946 Unknown [id number] 2.16.84 0.1.757987.3.579.2.593 1946 Unknown [id number] 2.16.84 0.1.510279.3.579.2.593 1946 Unknown [id number] 2.16.84 0.1.813079.3.579.2.593 1946 Unknown [id number] 2.16.84 0.1.056848.3.579.2.593 1946 Unknown [id number] 2.16. 840.1.551142.3.579.2.356 1946 Unknown [id number] 2.16. 840.1.217449.3.579.2.356 1946 Unknown [id number] 2.16. 840.1.448339.3.579.2.356 1946 Unknown [id number] 2.16. 840.1.058435.3.579.2.356 1946 Unknown [id number] 2.16. 840.1.886722.3.579.2.356 1946 Unknown [id number] 2.16.840.1.533262.3.579.2.1244 1946 Unknown [id number] 2.16.8 40.1.841164.3.579.2.1244 1946 Unknown [id number] 2.16.84 0.1.446689.3.579.2.1259 1946 Unknown [id number] 2.16.84 0.1.623993.3.579.2.1259 1946 Unknown [id number] 2.16.84 0.1.641100.3.579.2.1259 1946 Unknown [id number] 2.16.84 0.1.691752.3.579.2.1259 1946 Unknown [id number] 2.16.84 0.1.409492.3.579.2.1259 Unknown Unknown HCAP/HFA/FAP Active [id number] Unknown [id number] 2.16.8 40.1.106004.3.579.2.531 Social History Date Type Detail Facility Start: 01-29-2023 End: 03-17-2024 No illicit drug use No illicit drug use [place] [address] DO Work Phone: Comment on above: 1 BEER OCCASIONALLY; 2 CUPS OF COFFEE ELVIN LY; QUIT MAR 2019; Start: 01-29-2023 End: 03-17-2024 Sex Assigned At [facility] [employer] Other Start: 12-02-2021 End: 07-30-2023 Tobacco smoking status ILIS Ex-smoker [employer] Phone: End: 03-23-2018 History of tobacco use Current smoker [employer] Phone: End: 03-23-2018 History of tobacco use Cigarette Smoker [employer] Phone: Start: 12-02-2021 End: 03-17-2024 Alcohol intake Current drinker of alcohol (finding) [employer] Phone: Start: 11-28-2021 History SDOH Alcohol Frequency 2 [employer] Phone: Start: 11-28-2021 History SDOH Alcohol Std Drinks 3 [employer] Phone: Start: 12-02-2021 History SDOH Alcohol Comment occ beer [employer] Phone: Start: 1945 Sex Assigned At Not on file [employer] Phone: Start: 11-18-2021 End: 01-28-2024 Exposure to SARS-CoV-2 (event) Not sure [employer] Phone: Start: 1945 Sex Assigned At Male [facility] Start: 01-29-2023 End: 07-30-2023 Tobacco use and exposure Smokeless tobacco non-user [facility] Work Phone: Start: 01-29-2023 Alcohol Comment occasionally [facility] Work Phone: Start: 06-04-2023 Tobacco smoking status NHIS Tobacco smoking consumption unknown [facility] Start: 06-04-2023 Alcohol Comment coffee daily [facility] NEGATED: Highlighted rowStart: NINF History of tobacco use Passive smoker [facility] Medical Equipment Procedure Code Equipment Code Equipment Origin al Text Equipment Identifier Dates Capsule endoscopy, for patency of lumen evaluation Video capsule endoscopy system [id number] FDA Start: 10-20-2019 Femoral artery closure plug/patch, synthetic polymer [id number] FDA Start: 03-31-2019 Clinical Notes 08-26-2021 to 03-17-2024 Marciano Hi DPM - 03/17/2024 11:50 AM Pranav Liz MD - 01/28/2024 3:10 PM ESTPatient InstructionsAttachmentsMarciano Hi DPM - 01/07/2024 2:00 PM EDTPatient Instructions Note Date & Type Note Facility 03-17-2024 History of Present illness Narrative Patient: Shahrzad Edgar : 1945 PCP: Noms Provider MD Deo SUBJECTIVE This is a 78 y.o. male that presents today with a CC of elongated, thick nails. Pt states nails have been elongated and thick for many years and cause pain with ambulation in shoegear. Pt has tried previous treatment with minimal relief. Pt presents today for nail care and treatment. Patient is DM2 Patient also presents today for follow-up of dry skin and fissures to feet and has periodically been using prescribed or recommended ilyr-zlz-vsxeiri cream with negative improvement. Patient also states he had cold exposure for many years to his feet Patient has history of right foot drop secondary to spinal surgery in the past and refused AFO rx in the past. Allergies: No Known Allergies Past Medical History: Past Medical History: Diagnosis Date Diabetes ([facility]) Medications: Current Outpatient Medications: aspirin 81 MG EC tablet, Take 1 tablet by mouth Daily, Disp: , Rfl: atorvastatin (Lipitor) 80 MG tablet, Take 80 mg by mouth Daily, Disp: , Rfl: ibuprofen 400 MG tablet, Take 1 tablet twice a day by oral route., Disp: , Rfl: lisinopril 2.5 MG tablet, Take 2.5 mg by mouth Daily, Disp: , Rfl: sotalol AF (Betapace AF) 120 MG tablet, TAKE 1/2 TABLET TWICE A DAY BY MOUTH, Disp: , Rfl: Social History: Social History Socioeconomic History Marital status: Spouse name: Not on file Number of children: Not on file Years of education: Not on file Highest education level: Not on file Occupational History Not on file Tobacco Use Smoking status: Unknown Passive exposure: Never Smokeless tobacco: Not on file Vaping Use Vaping status: Never Used Substance and Sexual Activity Alcohol use: Yes Alcohol/week: 1.0 standard drink of alcohol Types: 1 Cans of beer per week Comment: coffee daily Drug use: Never Sexual activity: Defer Other Topics Concern Not on file Social History Narrative Not on file Social Drivers of Health Financial Resource Strain: Not on file Food Insecurity: Not on file Transportation Needs: Not on file Physical Activity: Not on file Stress: Not on file Social Connections: Not on file Intimate Partner Violence: Not on file Housing Stability: Not on file ROS: General: denies fever, chills, fatigue, malaise OBJECTIVE LE EXAM: DERM: Elongated thick yellow crumbly nails digits 1 through 10. Negative hair growth with thin shiny atrophic skin bilaterally Great amounts of Dry and scaly skin to bilateral feet and ankles VASC: Negative DP and negative PT pedal pulses NEURO: 5.07 [place] monofilament test diminished to digits and forefoot bilaterally 125Hz tuning fork diminished to 1st MPJ bilaterally ORTHO: Positive pain on palpation to nails 1 through 10 +4/5dorsiflexion right ankle ASSESSMENT 1. Diabetes 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, unspecified whether penitentiary insulin use ([facility]) 2. Pain due to onychomycosis of toenails of both feet 3. Right foot drop 4. Xerosis cutis PLAN Discussed proper foot care with patient today. Debride nails in length and thickness digits 1 through 10 Patient educated today on proper diabetic foot care including monitoring feet daily for any signs of infection openings in the skin or irregularities to both feet. Patient had a diabetic neurological exam today to both their feet and discussed proper shoe gear. Patient education on condition and treatment of condition. Patient encouraged to continue with creams to feet daily and did offer urea cream . Patient states that he will use jwgo-jqy-tgevnes creams as necessary Marciano Hi DPM documented in this encounter [facility] 01-28-2024 History of Present illness Narrative Subjective Shahrzad Edgar is a 78 y.o. male Chief Complaint Follow-up HPI Patient is here for follow-up continue management for history of coronary artery disease prior myocardial infarction, persistent atrial fibrillation on sotalol, hypertension, hyperlipidemia and history of intolerance to anticoagulation due to GI bleed. Since last time I saw him he denies any cardiac complaints chest pain, palpitation, lightheadedness, dizziness or syncope. He remains active. Described functional class II Assessment 1. Status post prior presentation with inferior wall myocardial infarction. Status post thrombectomy and balloon angioplasty to a small PLV branch. back in 2019. Patient describe functional class I. No recurrence of his symptoms 2. Persistent atrial fibrillation. Last time he was back [facility] but repeat EKG today he is in sinus rhythm. He has history of intolerance to anticoagulation 3. High-risk medication in form of sotalol QTc interval is slightly prolonged but acceptable 4. Mildly overweight with BMI of 28 5. Hypertension controlled 6. Hyperlipidemia controlled recent lab noted and reviewed with him 7. Anemia was seen by hematology in the past 8. Reformed smoker 9. Previous history of stroke with no residual deficit Plan 1. I advised the patient to continue present medical therapy. We discussed Watchman device but he again declined 2. He was counseled regarding losing weight, exercise and dietary modification 3. I advised him to repeat his lab work 4. I recommended to continue present medical regimen. 5. Risk of embolic event discussed with patient and at length he understood he only consent to aspirin therapy 6. I will see him back in 6 months Review of Systems All other systems reviewed and are negative. Vitals: 01/28/24 1456 BP: 118/66 BP Location: Left arm Patient Position: Sitting Pulse: 55 Weight: 93.9 kg (207 lb) Height: 1.854 m (6' 1 ) EKG done in office today Objective Physical Exam Constitutional: Appearance: Normal appearance. HENT: Nose: Nose normal. Neck: Vascular: No carotid bruit. Cardiovascular: Rate and Rhythm: Normal rate. Pulses: Normal pulses. Heart sounds: Normal heart sounds. Pulmonary: Effort: Pulmonary effort is normal. Abdominal: General: Bowel sounds are normal. Palpations: Abdomen is soft. Musculoskeletal: General: Normal range of motion. Cervical back: Normal range of motion. Right lower leg: No edema. Left lower leg: No edema. Skin: General: Skin is warm and dry. Neurological: General: No focal deficit present. Mental Status: He is alert. Psychiatric: Mood and Affect: Mood normal. Behavior: Behavior normal. Thought Content: Thought content normal. Judgment: Judgment normal. Allergies Coconut oil Current Medications Current Outpatient Medications: aspirin 81 mg EC tablet, Take 1 tablet (81 mg) by mouth once daily., Disp: , Rfl: atorvastatin (Lipitor) 80 mg tablet, TAKE 1 TABLET BY MOUTH EVERY DAY, Disp: 90 tablet, Rfl: 3 lisinopril 10 mg tablet, 1 tablet (10 mg) once daily., Disp: , Rfl: sotalol (Betapace) 80 mg tablet, Take 1 tablet (80 mg) by mouth every 12 hours., Disp: , Rfl: lisinopril 2.5 mg tablet, Take 1 tablet (2.5 mg) by mouth once daily., Disp: 90 tablet, Rfl: 3 sotalol (sotalol AF) 120 mg tablet, Take 1 tablet (120 mg) by mouth 2 times a day., Disp: 180 tablet, Rfl: 3 Assessment/Plan 1. Persistent atrial fibrillation (Multi) Follow Up In Cardiology 2. Single vessel coronary disease 3. Mixed hyperlipidemia 4. Essential hypertension 5. Anemia, unspecified type 6. Cerebrovascular accident (CVA), unspecified mechanism (Multi) 7. High risk medication use 8. Former smoker 9. BMI 27.0-27.9,adult Scribe Attestation By signing my name below, I, Carline Camacho LPN , Ilene attest that this documentation has been prepared under the direction and in the presence of Veronica Liz MD. Provider Attestation - Scribe documentation All medical record entries made by the Scribe were at my direction and personally dictated by me. I have reviewed the chart and agree that the record accurately reflects my personal performance of the history, physical exam, discussion and plan. documented in this encounter [facility] Work Phone: 01-28-2024 Instructions Carline López LPN - 01/28/2024 3:10 PM EST Please bring all medicines, vitamins, and herbal supplements with you when you come to the office. Prescriptions will not be filled unless you are compliant with your follow up appointments or have a follow up appointment scheduled as per instruction of your physician. Refills should be requested at the time of your visit. Fall Prevention Education Given BMI was above normal measurement. Current weight: 93.9 kg (207 lb) Weight change since last visit (-) denotes wt loss -6 lbs Weight loss needed to achieve BMI 25: 17.9 Lbs Weight loss needed to achieve BMI 30: -19.9 Lbs Provided instructions on dietary changes. The following attachments cannot be sent through Care Everywhere.Heart Healthy Diet (Samoan)documented in this encounter [facility] Work Phone: 01-07-2024 History of Present illness Narrative Patient: Shahrzad Edgar : 1945 PCP: Noms Provider MD Deo SUBJECTIVE This is a 78 y.o. male that presents today with a CC of elongated, thick nails. Pt states nails have been elongated and thick for many years and cause pain with ambulation in shoegear. Pt has tried previous treatment with minimal relief. Pt presents today for nail care and treatment. Patient is DM2 Patient also presents today for follow-up of dry skin and fissures to feet and has periodically been using prescribed or recommended jmuc-foh-nloljdd cream with minimal improvement. Patient also states he had cold exposure for many years to his feet Patient has history of right foot drop secondary to spinal surgery in the past and refused AFO rx in the past. Allergies: No Known Allergies Past Medical History: Past Medical History: Diagnosis Date Diabetes ([facility]) Medications: Current Outpatient Medications: aspirin 81 MG EC tablet, Take 1 tablet by mouth Daily, Disp: , Rfl: atorvastatin (Lipitor) 80 MG tablet, Take 80 mg by mouth Daily, Disp: , Rfl: ibuprofen 400 MG tablet, Take 1 tablet twice a day by oral route., Disp: , Rfl: lisinopril 2.5 MG tablet, Take 2.5 mg by mouth Daily, Disp: , Rfl: sotalol AF (Betapace AF) 120 MG tablet, TAKE 1/2 TABLET TWICE A DAY BY MOUTH, Disp: , Rfl: Social History: Social History Socioeconomic History Marital status: Spouse name: Not on file Number of children: Not on file Years of education: Not on file Highest education level: Not on file Occupational History Not on file Tobacco Use Smoking status: Unknown Passive exposure: Never Smokeless tobacco: Not on file Vaping Use Vaping status: Never Used Substance and Sexual Activity Alcohol use: Yes Alcohol/week: 1.0 standard drink of alcohol Types: 1 Cans of beer per week Comment: coffee daily Drug use: Never Sexual activity: Defer Other Topics Concern Not on file Social History Narrative Not on file Social Drivers of Health Financial Resource Strain: Not on file Food Insecurity: Not on file Transportation Needs: Not on file Physical Activity: Not on file Stress: Not on file Social Connections: Not on file Intimate Partner Violence: Not on file Housing Stability: Not on file ROS: General: denies fever, chills, fatigue, malaise OBJECTIVE LE EXAM: DERM: Elongated thick yellow crumbly nails digits 1 through 10. Negative hair growth with thin shiny atrophic skin bilaterally Notable large amounts Dry and scaly skin to bilateral feet and ankles VASC: Negative DP and negative PT pedal pulses NEURO: 5.07 [place] [employer] monofilament test diminished to digits and forefoot bilaterally 125Hz tuning fork diminished to 1st MPJ bilaterally ORTHO: Positive pain on palpation to nails 1 through 10 +4/5dorsiflexion right ankle ASSESSMENT 1. Onychomycosis 2. Pain due to onychomycosis of toenails of both feet 3. Right foot drop 4. Xerosis cutis PLAN Discussed proper foot care with patient today. Debride nails in length and thickness digits 1 through 10 Patient educated today on proper diabetic foot care including monitoring feet daily for any signs of infection openings in the skin or irregularities to both feet. Patient had a diabetic neurological exam today to both their feet and discussed proper shoe gear. Patient education on condition and treatment of condition. Patient encouraged to continue with creams to feet daily and did offer urea cream . Patient states that he will use pvek-vea-gkmeaii creams as necessary Marciano Hi DPM documented in this encounter [facility] 07-30-2023 History of Present illness Narrative Subjective Shahrzad Edgar is a 77 y.o. male Chief Complaint Follow-up HPI Patient is here for follow-up continue management for previous inferior wall myocardial infarction remotely, persistent atrial fibrillation, treatment with sotalol, hypertension hyperlipidemia in addition he had a history of anemia and has declined to be on aggressive anticoagulation. Since last time I saw him he denies complaint of chest pain, palpitation, lightheadedness, dizziness or syncope. He remains reasonably active. He was noted to be back in atrial fibrillation. This is asymptomatic. His recent laboratory data noted and reviewed with him. Assessment 1. Status post prior presentation with inferior wall myocardial infarction. Status post thrombectomy and balloon angioplasty to a small PLV branch. back in 2019. Patient describe functional class I. 2. Persistent atrial fibrillation. Been on sotalol with recurrence not on anticoagulation because of previous GI bleed and anemia 3. High-risk medication in form of sotalol 4. Mildly overweight with BMI of 28 5. Hypertension controlled 6. Hyperlipidemia controlled recent lab noted and reviewed with him 7. Anemia was seen by hematology in the past 8. Reformed smoker 9. Previous history of stroke with no residual deficit Plan 1. I discussed with patient treatment option for atrial fibrillation. Patient refused ablation and oral anticoagulation. We discussed also Watchman device but he declined. 2. He was counseled regarding losing weight, exercise and dietary modification 3. I reviewed with him his recent lab work 4. I recommended to continue present medical regimen. Will see him back in 6 months and repeat EKG if remain in A-fib we will switch him to metoprolol 5. Risk of embolic event discussed with patient and at length he understood he only consent to aspirin therapy Review of Systems All other systems reviewed and are negative. Vitals: 07/30/23 1447 07/30/23 1550 BP: 144/88 132/82 BP Location: Left arm Patient Position: Sitting Pulse: 96 Weight: 96.6 kg (213 lb) Height: 1.854 m (6' 1 ) EKG done in office today Objective Physical Exam Constitutional: Appearance: Normal appearance. HENT: Nose: Nose normal. Neck: Vascular: No carotid bruit. Cardiovascular: Rate and Rhythm: Normal rate. Rhythm irregularly irregular. Pulses: Normal pulses. Heart sounds: Normal heart sounds. Pulmonary: Effort: Pulmonary effort is normal. Abdominal: General: Bowel sounds are normal. Palpations: Abdomen is soft. Musculoskeletal: General: Normal range of motion. Cervical back: Normal range of motion. Right lower leg: No edema. Left lower leg: No edema. Skin: General: Skin is warm and dry. Neurological: General: No focal deficit present. Mental Status: He is alert. Psychiatric: Mood and Affect: Mood normal. Behavior: Behavior normal. Thought Content: Thought content normal. Judgment: Judgment normal. Allergies Coconut oil Current Medications Current Outpatient Medications: aspirin 81 mg EC tablet, Take 1 tablet (81 mg) by mouth once daily., Disp: , Rfl: atorvastatin (Lipitor) 80 mg tablet, TAKE 1 TABLET BY MOUTH EVERY DAY, Disp: 90 tablet, Rfl: 3 lisinopril 2.5 mg tablet, Take 1 tablet (2.5 mg) by mouth once daily., Disp: , Rfl: sotalol AF 120 mg tablet, TAKE 1/2 TABLET BY MOUTH TWICE A DAY, Disp: 90 tablet, Rfl: 1 Assessment/Plan 1. High risk medication use 2. Single vessel coronary disease Follow Up In Cardiology 3. Essential hypertension Follow Up In Cardiology 4. Mixed hyperlipidemia 5. Persistent atrial fibrillation (Multi) Follow Up In Cardiology ECG 12 Lead 6. BMI 28.0-28.9,adult 7. Cerebrovascular accident (CVA), unspecified mechanism (Multi) 8. Anemia, unspecified type 9. Former smoker Scribe Attestation By signing my name below, Shaina Hsu LPN, Scribe attest that this documentation has been prepared under the direction and in the presence of Veronica Liz MD. Provider Attestation - Scribe documentation All medical record entries made by the Scribe were at my direction and personally dictated by me. I have reviewed the chart and agree that the record accurately reflects my personal performance of the history, physical exam, discussion and plan. documented in this encounter [facility] Work Phone: 07-30-2023 Instructions Shaina Floyd LPN - 07/30/2023 3:00 PM EDT Please bring all medicines, vitamins, and herbal supplements with you when you come to the office. Prescriptions will not be filled unless you are compliant with your follow up appointments or have a follow up appointment scheduled as per instruction of your physician. Refills should be requested at the time of your visit. BMI was above normal measurement. Current weight: 96.6 kg (213 lb) Weight change since last visit (-) denotes wt loss -6 lbs Weight loss needed to achieve BMI 25: 23.9 Lbs Weight loss needed to achieve BMI 30: -13.9 Lbs Provided instructions on dietary changes Advised to Increase physical activity. Watchman Discussed Follow up 6 months with ekg documented in this encounter [facility] Work Phone: 01-29-2023 History of Present illness Narrative Subjective Shahrzad Edgar is a 77 y.o. male Chief Complaint Follow-up HPI Patient is here for follow-up continue management for coronary artery disease with PCI and thrombectomy to PLV branch, atrial fibrillation, obesity and hypertension. Since last time I saw him he reports he is feeling well. He denies any complaint of chest pain, palpitation, lightheadedness, dizziness or syncope. He remains active. Described functional class I. He denies any active cardiac symptoms. Recent laboratory data noted and reviewed with him. Assessment 1. Status post prior presentation with inferior wall myocardial infarction. Status post thrombectomy and balloon angioplasty to a small PLV branch. back in 2019. Patient describe functional class I. 2. Persistent atrial fibrillation. Remains in sinus on sotalol not on anticoagulation due to prior history of GI bleed and anemia. QTc interval is acceptable 3. High-risk medication in form of sotalol 4. Mildly overweight with BMI of 28 5. Hypertension controlled 6. Hyperlipidemia controlled 7. Anemia was seen by hematology in the past 8. Reformed smoker 9. Previous history of stroke with no residual deficit Plan 1. Advised the patient to continue present medical regimen 2. He was counseled regarding losing weight, exercise and dietary modification 3. Discussed with him anticoagulation and Watchman device he refused both I advised him that he had very high risk for recurrence of his stroke he understand 4. I reviewed his lab work 5. 6-month follow-up Review of Systems All other systems reviewed and are negative. Visit Vitals BP 132/74 (BP Location: Right arm, Patient Position: Sitting) Pulse 62 Ht 1.854 m (6' 1 ) Wt 99.3 kg (219 lb) BMI 28.89 kg/m Smoking Status Former BSA 2.26 m Objective Physical Exam Constitutional: Appearance: Normal appearance. He is normal weight. HENT: Nose: Nose normal. Neck: Vascular: No carotid bruit. Cardiovascular: Rate and Rhythm: Normal rate. Pulses: Normal pulses. Heart sounds: Normal heart sounds. Pulmonary: Effort: Pulmonary effort is normal. Abdominal: General: Bowel sounds are normal. Palpations: Abdomen is soft. Genitourinary: Rectum: Normal. Musculoskeletal: General: Normal range of motion. Cervical back: Normal range of motion. Right lower leg: No edema. Left lower leg: No edema. Skin: General: Skin is warm and dry. Neurological: General: No focal deficit present. Mental Status: He is alert. Psychiatric: Mood and Affect: Mood normal. Behavior: Behavior normal. Thought Content: Thought content normal. Judgment: Judgment normal. Current Medications Current Outpatient Medications: aspirin 81 mg EC tablet, Take 1 tablet (81 mg) by mouth once daily., Disp: , Rfl: atorvastatin (Lipitor) 80 mg tablet, Take 1 tablet (80 mg) by mouth once daily., Disp: , Rfl: lisinopril 2.5 mg tablet, Take 1 tablet (2.5 mg) by mouth once daily., Disp: , Rfl: sotalol AF 120 mg tablet, Take 0.5 tablets (60 mg) by mouth 2 times a day., Disp: , Rfl: Assessment/Plan 1. Single vessel coronary disease Follow Up In Cardiology 2. Essential hypertension Follow Up In Cardiology 3. Mixed hyperlipidemia 4. Persistent atrial fibrillation (CMS/HCC) ECG 12 Lead 5. Anemia, unspecified type 6. BMI 28.0-28.9,adult EKG done in office today documented in this encounter [facility] Work Phone: 01-29-2023 Instructions Clyde Nunez MA - 01/29/2023 3:10 PM EST Please bring all medicines, vitamins, and herbal supplements with you when you come to the office. Prescriptions will not be filled unless you are compliant with your follow up appointments or have a follow up appointment scheduled as per instruction of your physician. Refills should be requested at the time of your visit. documented in this encounter [facility] Work Phone: 06-05-2022 History of Present illness Narrative Yesterday OV note. Patient showed up in the office following recent hospitalization. He did not bring his medication with him. It turns out that the patient had been out of his sotalol for several days. Apparently no changes were made in his medication following his recent stroke. Detail of his recent hospitalization is unclearAssessment1. Status post prior presentation with inferior wall myocardial infarction. Status post thrombectomy and balloon angioplasty to a small PLV branch. back in 2019. Patient describe functional class I. He had previous hospital admission for atypical chest pain work-up was benign cardiac wise2. Persistent atrial fibrillation appears now back in A-fib with RVR. He had a history of intolerance to Eliquis due to GI bleed. He was recently in the hospital for stroke. Apparently he had ran out of his sotalol for several days3. High-risk medication in form of sotalol4. Obesity with another weight gain5. Hypertension6. Hyperlipidemia7. Anemia was seen by hematology in the past8. Reformed smoker9. Stroke detail is lackingPlan1. Advised the patient to resume his sotalol we will bring him back in 6 to 8 weeks to assess his rhythm2. He was counseled regarding losing weight, exercise and dietary modification3. Discussed with him anticoagulation and Watchman device he refused both I advised him that he had very high risk for recurrence of his stroke he understand4. We will try to retrieve retrieve his record from [place] [id number] DO Work Phone: 12-03-2021 History of Present illness Narrative Images from the original note were not included. [employer] Progress Note Date: 12/03/2021 Patient name: Shahrzad Edgar Date of admission: 11/28/2021 3:15 AM Date of : 1945 PCP: No primary care provider on file. Reason for Admission: Brain mass [G93.89] Subjective: Clinical Changes / Abnormalities: Pt seen and examined in the room. Pt remains afib rate controlled on amio gtt. Medications: Scheduled Meds: lisinopril 10 mg Oral Daily metoprolol tartrate 25 mg Oral BID cefdinir 300 mg Oral 2 times per day insulin lispro 0-16 Units SubCUTAneous 4x Daily AC & HS tamsulosin 0.4 mg Oral Daily ofloxacin 5 drop Left Ear Daily enoxaparin 30 mg SubCUTAneous BID atorvastatin 80 mg Oral Nightly Continuous Infusions: amiodarone 0.5 mg/min (12/02/21 2350) sodium chloride 75 mL/hr at 12/02/21 0310 dextrose CBC: Recent Labs 12/01/21 0352 12/03/21 0407 WBC 15.0* 11.0 HGB 15.6 13.1 PLT 235 223 BMP: Recent Labs 12/01/21 0352 12/03/21 0407 NA 132* 133* K 4.2 3.9 CL 102 101 CO2 19* 18* BUN 16 12 CREATININE 0.76 0.67* GLUCOSE 176* 156* Hepatic: No results for input(s): AST, ALT, ALB, BILITOT, ALKPHOS in the last 72 hours. Troponin: Recent Labs 12/02/21 0316 12/02/21 0837 TROPHS 15 15 BNP: No results for input(s): BNP in the last 72 hours. Lipids: No results for input(s): CHOL, HDL in the last 72 hours. Invalid input(s): LDLCALCU INR: No results for input(s): INR in the last 72 hours. Objective: Vitals: BP 133/88 Pulse 85 Temp 98.2 F (36.8 C) (Oral) Resp 18 Ht 6' 1 (1.854 m) Wt 207 lb 3.7 oz (94 kg) SpO2 100% BMI 27.34 kg/m General appearance: alert and cooperative with exam HEENT: Head: Normocephalic, no lesions, without obvious abnormality. Neck: no JVD, trachea midline, no adenopathy Lungs: Clear to auscultation Heart: irregular rate and rhythm, s1/s2 auscultated, no murmurs, afib Abdomen: soft, non-tender, bowel sounds active Extremities: no edema Neurologic: not done Assessment / Acute Cardiac Problems: Cerebrovascular accident Atrial Fibrillation Hyperlipidemia Otitis media with effusion Patient Active Problem List: Cerebrovascular accident (CVA) (HCC) Otitis media with effusion, left PAF (paroxysmal atrial fibrillation) (HCC) Anemia Atrial fibrillation with RVR (HCC) Primary hypertension Type 2 diabetes mellitus without complication, without long-term current use of insulin (HCC) COPD (chronic obstructive pulmonary disease) ([facility]) [id number] Score for Atrial Fibrillation Stroke Risk Risk Factors Component Value C CHF No 0 H HTN Yes 1 A2 Age >= 75 Yes, (76 y.o.) 2 D DM Yes 1 S2 Prior Stroke/TIA No 0 V Vascular Disease No 0 A Age 65-74 No, (76 y.o.) 0 Sc Sex male 0 [id number] Score 4 Score last updated 12/03/21 10:13 AM EDT Click here for a link to the UpToDate guideline Atrial Fibrillation: Anticoagulation therapy to prevent embolization Disclaimer: Risk Score calculation is dependent on accuracy of patient problem list and past encounter diagnosis. Plan of Treatment: PAF not on AC due to GIB and anemia currently On amio gtt. Will d/c gtt and start on PO Continue BB and ASA Sotalol d/c'd due to prolonged qtc Cleared for AC per GI. Plan for repeat CT 12/19 and will start on DOAC if stable No further cardiac workup at this time. Please call with further questions or concerns [employer] [phone] [facility] IN-PATIENT SERVICE [facility] Progress Note Date: 12/03/2021 Patient name: Shahrzad Edgar Date of admission: 11/28/2021 3:15 AM Account: [id number] Date of : 1945 PCP: No primary care provider on file. Room: [address] [place] [address] Code Status: Full Code Chief Complaint: Right temporoparietal stroke Interval hx: The patient was seen and examined at bedside. Is vitally stable, alert and oriented x 4. No acute events overnight. The patient stated that he feels well, denied any complaints. States he slept well overnight. Does currently have a mild headache for which he is requesting Tylenol. He is eager to be discharged to [facility]. Patient counseled regarding treatment follow-up plan, expressed understanding and agreement. Amiodarone infusion ongoing, plan to discontinue and start oral per cardiology. Likely discharge later today. Brief History of Present Illness: Shahrzad Edgar is a 76 y.o. male with H/O DM, CAD on a baby aspirin at home, A. fib not on AC, who was admitted on 11/28/2021 with a right-sided temporal headache with dizziness. Initially evaluated at [facility] and later transferred to [facility] after CT head was done showing an area of hypoattenuation in the right parietotemporal region with right-sided sulcal effacement and loss of mitchell-white differentiation concerning for an acute infarct with trace hemorrhage noted around the anterior right temporal lobe with leftward midline shift. He was given IV Decadron and IV Keppra and then transferred to the neuro ICU. ICH score 0. MRI brain was done and was consistent with a subacute infarct with hemorrhagic transformation. Repeat CT head done 11/29 was stable. Of note, patient was previously on Eliquis which was discontinued in May 2021 due to severe anemia and he also had GI bleeding in September 2021 as per patient's cardiology office. Patient unable to elaborate any further on the circumstances surrounding his GI bleed. GI was consulted who did clear the patient for AC given that there is no active bleeding at this time and hemoglobin remains stable. Plan is to repeat CT head on 12/12/21 and start AC at that time of area of stroke/bleed is stable. Past Medical History: Past Medical History: Diagnosis Date Arthritis COPD (chronic obstructive pulmonary disease) (HCC) Diabetes mellitus (HCC) Gangrenous cholecystitis History of blood transfusion Hypertension Past Surgical History: Past Surgical History: Procedure Laterality Date CHOLECYSTECTOMY, OPEN Medications Prior to Admission: Prior to Admission medications Medication Sig Start Date End Date Taking? Authorizing Provider aspirin 81 MG EC tablet Take 81 mg by mouth daily Yes Historical Provider, atorvastatin (LIPITOR) 80 MG tablet Take 80 mg by mouth daily Yes Historical Provider, lisinopril (PRINIVIL;ZESTRIL) 5 MG tablet Take 5 mg by mouth daily Yes Historical Provider, sotalol (BETAPACE) 120 MG tablet Take 60 mg by mouth 2 times daily Yes Historical Provider, SITagliptin (JANUVIA) 100 MG tablet Take 100 mg by mouth daily Yes Historical Provider, Allergies: Coconut (cocos nucifera) allergy skin test Social History: Tobacco: reports that he has quit smoking. His smoking use included cigarettes. He does not have any smokeless tobacco history on file. Alcohol: reports current alcohol use. Drug Use: reports no history of drug use. Family History: Family History Problem Relation Age of Onset Cancer Mother Review of Systems: Review of Systems Constitutional: Negative for activity change, appetite change, chills, diaphoresis and fever. Respiratory: Negative for apnea, cough, chest tightness, shortness of breath and wheezing. Cardiovascular: Negative for chest pain and palpitations. Gastrointestinal: Negative for abdominal distention, abdominal pain, constipation, diarrhea, nausea and vomiting. Genitourinary: Negative for difficulty urinating, dysuria and frequency. Musculoskeletal: Negative for arthralgias and myalgias. Neurological: Negative for dizziness, light-headedness and headaches. Psychiatric/Behavioral: Negative for agitation and confusion. All other systems reviewed and are negative. Physical Exam: BP 132/64 Pulse 77 Temp 98.2 F (36.8 C) (Oral) Resp 18 Ht 6' 1 (1.854 m) Wt 207 lb 3.7 oz (94 kg) SpO2 100% BMI 27.34 kg/m Temp (24hrs), Av.3 F (36.8 C), Min:98.2 F (36.8 C), Max:98.6 F (37 C) Recent Labs 12/02/21 0857 12/02/21 1201 12/02/21 1655 12/02/21 2053 POCGLU 188* 197* 220* 164* No intake or output data in the 24 hours ending 12/03/21 0849 Neurologic Exam GENERAL Appears comfortable and in no distress HEENT NC/ AT HEART S1 and S2 heard; palpation of pulses: radial pulse NECK Supple and no bruits heard MENTAL STATUS: Alert, oriented, intact memory, no confusion, normal speech, normal language, no hallucination or delusion CRANIAL NERVES: II - Visual blunt intact to confrontation III,IV, - PERR, EOMs full, no ptosis V - Normal facial sensation VII - Normal facial symmetry VIII - Intact hearing IX,X - Symmetrical palate XI - Symmetrical shoulder shrug XII - Midline tongue, no atrophy MOTOR FUNCTION: RUE: Significant for good strength of grade 3/5 in proximal and distal muscle groups LUE: Significant for good strength of grade 4/5 in proximal and distal muscle groups RLE: Significant for good strength of grade 3/5 in proximal and distal muscle groups LLE: Significant for good strength of grade 4/5 in proximal and distal muscle groups Normal bulk, normal tone and no involuntary movements, no tremor SENSORY FUNCTION: Normal touch, normal pinprick, normal vibration, normal proprioception CEREBELLAR FUNCTION: Intact fine motor control over upper limbs and lower limbs REFLEX FUNCTION: Symmetric in upper and lower extremities, no Babinski sign STATION and GAIT Deferred Investigations: Laboratory Testing: Recent Results (from the past 24 hour(s)) POC Glucose Fingerstick Collection Time: 12/02/21 8:57 AM Result Value Ref Range POC Glucose 188 (H) 75 - 110 mg/dL POC Glucose Fingerstick Collection Time: 12/02/21 12:01 PM Result Value Ref Range POC Glucose 197 (H) 75 - 110 mg/dL EKG 12 Lead Collection Time: 12/02/21 3:40 PM Result Value Ref Range Ventricular Rate 90 BPM Atrial Rate 90 BPM QRS Duration 88 ms Q-T Interval 422 ms QTc Calculation (Bazett) 516 ms R Crary 23 degrees T Crary 48 degrees POC Glucose Fingerstick Collection Time: 12/02/21 4:55 PM Result Value Ref Range POC Glucose 220 (H) 75 - 110 mg/dL POC Glucose Fingerstick Collection Time: 12/02/21 8:53 PM Result Value Ref Range POC Glucose 164 (H) 75 - 110 mg/dL CBC with Auto Differential Collection Time: 12/03/21 4:07 AM Result Value Ref Range WBC 11.0 3.5 - 11.3 k/uL RBC 4.25 4.21 - 5.77 m/uL Hemoglobin 13.1 13.0 - 17.0 g/dL Hematocrit 37.0 (L) 40.7 - 50.3 % MCV 87.1 82.6 - 102.9 fL MCH 30.8 25.2 - 33.5 pg MCHC 35.4 (H) 28.4 - 34.8 g/dL RDW 13.7 11.8 - 14.4 % Platelets 223 138 - 453 k/uL MPV 10.6 8.1 - 13.5 fL NRBC Automated 0.0 0.0 per 100 WBC Seg Neutrophils 73 (H) 36 - 65 % Lymphocytes 10 (L) 24 - 43 % Monocytes 11 3 - 12 % Eosinophils % 5 (H) 1 - 4 % Basophils 0 0 - 2 % Immature Granulocytes 1 (H) 0 % Segs Absolute 8.06 1.50 - 8.10 k/uL Absolute Lymph # 1.07 (L) 1.10 - 3.70 k/uL Absolute [place] # 1.20 0.10 - 1.20 k/uL Absolute Eos # 0.54 (H) 0.00 - 0.44 k/uL Basophils Absolute 0.03 0.00 - 0.20 k/uL Absolute Immature Granulocyte 0.07 0.00 - 0.30 k/uL Basic Metabolic Panel Collection Time: 12/03/21 4:07 AM Result Value Ref Range Glucose 156 (H) 70 - 99 mg/dL BUN 12 8 - 23 mg/dL Creatinine 0.67 (L) 0.70 - 1.20 mg/dL Calcium 8.0 (L) 8.6 - 10.4 mg/dL Sodium 133 (L) 135 - 144 mmol/L Potassium 3.9 3.7 - 5.3 mmol/L Chloride 101 98 - 107 mmol/L CO2 18 (L) 20 - 31 mmol/L Anion Gap 14 9 - 17 mmol/L GFR Non- >60 >60 mL/min GFR >60 >60 mL/min GFR Comment Recent Labs 12/03/21 0407 WBC 11.0 RBC 4.25 HGB 13.1 HCT 37.0* MCV 87.1 MCH 30.8 MCHC 35.4* RDW 13.7 PLT 223 MPV 10.6 Recent Labs 12/03/21 0407 NA 133* K 3.9 CL 101 CO2 18* BUN 12 CREATININE 0.67* GLUCOSE 156* CALCIUM 8.0* Hemoglobin A1C Date Value Ref Range Status 11/28/2021 8.1 (H) 4.0 - 6.0 % Final Assessment : Primary Problem Cerebrovascular accident (CVA) ([facility]) Active Hospital Problems Diagnosis Date Noted Atrial fibrillation with RVR ([facility]) [I48.91] 12/02/2021 Priority: Medium Type 2 diabetes mellitus without complication, without long-term current use of insulin ([facility]) [E11.9] 12/02/2021 Priority: Medium Primary hypertension [I10] 12/02/2021 Priority: Medium COPD (chronic obstructive pulmonary disease) ([facility]) [J44.9] 12/02/2021 Priority: Medium PAF (paroxysmal atrial fibrillation) ([facility]) [I48.0] 11/29/2021 Priority: Medium Anemia [D64.9] 11/29/2021 Priority: Medium Cerebrovascular accident (CVA) ([facility]) [I63.9] 11/28/2021 Priority: Medium Otitis media with effusion, left [H65.92] 11/28/2021 Priority: Medium Patient is a 76 y.o. male who initially presented with headache and dizziness, found to have subacute right parietotemporal lobe infarct with hemorrhagic transformation and leftward midline shift. His headache has gradually continued to improve. Patient has history of A. fib but was not on anticoagulation due to history of GI bleed, resumed after consultation with GI and cardiology. Right parieto temporal lobe ischemia with hemorrhagic ulceration on left and midline shift History of A. fib, not on anticoagulation Plan: Continue Lipitor 80 mg nightly Continue amiodarone p.o. per cardiology GI okay with starting anticoagulation, planning for repeat CT head on 12/19/2021 and if stable patient can be started on anticoagulation. Neurology following, Higu[place] catheter removed and patient tolerated voiding trial. Continue Flomax, HTN meds Cardiology following for A. Fib Internal medicine following for medical management PT/OT/ST Plan for discharge to [facility] today Follow-up further recommendations after discussing the case with attending The plan was discussed with the patient, patient's family and the medical staff. Consultations: IP CONSULT TO PHARMACY PHARMACY TO CHANGE BASE FLUIDS IP CONSULT TO OTOLARYNGOLOGY IP CONSULT TO PHYSICAL MEDICINE REHAB IP CONSULT TO GI IP CONSULT TO UROLOGY IP CONSULT TO CARDIOLOGY IP CONSULT TO INTERNAL MEDICINE Patient is admitted as inpatient status because of co-morbidities listed above, severity of signs and symptoms as outlined, requirement for current medical therapies and most importantly because of direct risk to patient if care not provided in a hospital setting. Jasmin Corrales MD 12/03/2021 8:49 AM Copy sent to Dr. Ware primary care provider on file. Associated attestation - Reymundo Tomas MD - 12/03/2021 7:38 PM EDT Attending Physician Statement I have discussed the case of Shahrzad Edgar including pertinent history and exam findings with the resident/ COARSE WIRE DRAWER. I reviewed medications, clinical labs, x-rays and other diagnostic tests with the resident/ COARSE WIRE DRAWER. I have seen and examined the patient and the lamas elements of the encounter have been performed by me. I agree with the assessment, plan and orders as documented by the resident or COARSE WIRE DRAWER. Impression and Plan: Mr. Shahrzad Edgar is a 76 y.o. male with Right MCA infarct with hemorrhagic transformation; hx of A Fib not on anticoag; hx of GI Bleed; GI okay to start anticoagulation. plan to rpt CT head on 12/19/21 and if stable, then to start anticoagulation; discharge plan in progress. This note was partially created using voice recognition software and is inherently subject to errors including those of syntax and sound alike substitutions which may escape proofreading. In such instances, original meaning may be extrapolated by contextual derivation. Reymundo Tomas MD 12/03/2021 7:34 PM Images from the original note were not included. [facility] Office: [phone] Darrius Mattson DO, Valente Kaur DO, Noel Lin DO, Gilles Mantilla DO, rEnst Pond MD, Sara Dalal MD, Lizbet Grossman MD, Ernestine Colvin MD, Gaurav Macias MD, Jyoti Dale MD, Moody Canas DO, Jennifer Kaur MD, Dany Arroyo DO, Abbi Kirkland MD, Kye Adam MD, Keny Mattson DO, Phuong Cannon MD, Dustin Degroot MD, Susan Castro MD, Aaliyah Rudolph MD, Mary Concepcion MD, Dorcas Ness MD, Osmin Marlow DO, Zena Irby MD, Lewis See MD, Blanka Martin, COARSE WIRE DRAWER, Nicky Gonzalez CNP, Pattie Vasquez, COARSE WIRE DRAWER, Prem Potter, COARSE WIRE DRAWER, Adrienne Domingo, DNP, Marissa Hamilton, COARSE WIRE DRAWER, Lida Soto, COARSE WIRE DRAWER, Rosmery Bryan CNP, Cici Antoine CNP, Leslie Chen, COARSE WIRE DRAWER, TIARRA SandersC, Kathy Wilder, MOLD FINISHER, Janet Bar, MIYA, Triny Francois, COARSE WIRE DRAWER, Mary Ortiz, COARSE WIRE DRAWER, Sue Rivera, LAURENCE [facility] IN-PATIENT SERVICE [facility] Progress Note 12/03/2021 8:19 AM Name: Shahrzad Edgar Acct: [id number] Room: [address] [place] [address] Day: 5 Admit Date: 11/28/2021 3:15 AM PCP: No primary care provider on file. Code Status: Full Code Subjective: C/C: Weakness Interval History Status: First time seeing patient . Pt says hes feeling a little better today HR better controlled but still on amiodarone. He has no other complaints. Review of Systems: Constitutional: negative for chills, fevers, sweats Respiratory: negative for cough, dyspnea on exertion, shortness of breath, wheezing Cardiovascular: negative for chest pain, chest pressure/discomfort, lower extremity edema, palpitations Gastrointestinal: negative for abdominal pain, constipation, diarrhea, nausea, vomiting Neurological: negative for dizziness, headache Medications: Allergies: Allergies Allergen Reactions Coconut (Cocos Nucifera) Allergy Skin Test Anaphylaxis Current Meds: Scheduled Meds: lisinopril 10 mg Oral Daily lisinopril 5 mg Oral Once metoprolol tartrate 25 mg Oral BID cefdinir 300 mg Oral 2 times per day insulin lispro 0-16 Units SubCUTAneous 4x Daily AC & HS tamsulosin 0.4 mg Oral Daily ofloxacin 5 drop Left Ear Daily enoxaparin 30 mg SubCUTAneous BID atorvastatin 80 mg Oral Nightly Continuous Infusions: amiodarone 0.5 mg/min (12/02/21 2350) sodium chloride 75 mL/hr at 12/02/21 0310 dextrose PRN Meds: metoprolol, opium-belladonna, loperamide, hyoscyamine, acetaminophen, ondansetron OR ondansetron, glucose, dextrose bolus OR dextrose bolus, glucagon (rDNA), dextrose, sodium chloride flush, labetalol Data: Past Medical History: has a past medical history of Arthritis, COPD (chronic obstructive pulmonary disease) (HCC), Diabetes mellitus (HCC), Gangrenous cholecystitis, History of blood transfusion, and Hypertension. Social History: reports that he has quit smoking. His smoking use included cigarettes. He does not have any smokeless tobacco history on file. He reports current alcohol use. He reports that he does not use drugs. Family History: Family History Problem Relation Age of Onset Cancer Mother Vitals: BP 132/64 Pulse 77 Temp 98.2 F (36.8 C) (Oral) Resp 18 Ht 6' 1 (1.854 m) Wt 207 lb 3.7 oz (94 kg) SpO2 100% BMI 27.34 kg/m Temp (24hrs), Av.3 F (36.8 C), Min:98.2 F (36.8 C), Max:98.6 F (37 C) Recent Labs 12/02/21 0857 12/02/21 1201 12/02/21 1655 12/02/21 2053 POCGLU 188* 197* 220* 164* I/O (24Hr): No intake or output data in the 24 hours ending 12/03/21 0819 Labs: Hematology: Recent Labs 12/01/2135112/03/21 0407 WBC 15.0* 11.0 RBC 5.11 4.25 HGB 15.6 13.1 HCT 45.2 37.0* MCV 88.5 87.1 MCH 30.5 30.8 MCHC 34.5 35.4* RDW 13.8 13.7 PLT 235 223 MPV 9.6 10.6 Chemistry: Recent Labs 12/01/21 0352 12/02/21 0316 12/02/21 0837 12/03/21 0407 NA 132* -- -- 133* K 4.2 -- -- 3.9 CL 102 -- -- 101 CO2 19* -- -- 18* GLUCOSE 176* -- -- 156* BUN 16 -- -- 12 CREATININE 0.76 -- -- 0.67* MG -- 2.0 -- -- ANIONGAP 11 -- -- 14 LABGLOM >60 -- -- >60 GFRAA >60 -- -- >60 CALCIUM 8.1* -- -- 8.0* PHOS -- 2.8 -- -- TROPHS -- 15 15 -- Recent Labs 12/01/21 1819 12/01/21202212/02/21 0857 12/02/21 1201 12/02/21 1655 12/02/212052 POCGLU 129* 132* 188* 197* 220* 164* ABG:No results found for: POCPH, PHART, PH, POCPCO2, MXK6AOT, PCO2, POCPO2, PO2ART, PO2, POCHCO3, DYP5UQS, HCO3, NBEA, PBEA, BEART, BE, THGBART, THB, UVO9SEG, EQCI7UCX, Y6WPTUFH, O2SAT, FIO2 Lab Results Component Value Date/Time SPECIAL r hand 20ml 11/28/2021 07:37 AM Lab Results Component Value Date/Time CULTURE NO GROWTH 5 DAYS 11/28/2021 07:37 AM Radiology: CT HEAD WO CONTRAST Result Date: 11/29/2021 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 Similar punctate focus of presumed hemorrhage. CT HEAD WO CONTRAST Result Date: 11/28/2021 1. Findings appear most consistent with subacute (1-2 week range) infarct in the region of right M2 inferior division with petechial hemorrhage in areas along the cortical ribbon and apparent normalization of cortical density consistent with fogging effect. Associated edema results in sulcal and right lateral ventricle effacement with 3 mm leftward midline shift. 2. No specific vessel occlusion identified however there is marked paucity of vessels throughout the affected area. 3. Mass felt to be unlikely but pre and postcontrast MRI could be obtained for confirmation. Critical results were called by Dr. Adalberto Escobar to Dr. Velázquez on 11/28/2021 at 06:40. CTA head neck with contrast Result Date: 11/28/2021 1. Findings appear most consistent with subacute (1-2 week range) infarct in the region of right M2 inferior division with petechial hemorrhage in areas along the cortical ribbon and apparent normalization of cortical density consistent with fogging effect. Associated edema results in sulcal and right lateral ventricle effacement with 3 mm leftward midline shift. 2. No specific vessel occlusion identified however there is marked paucity of vessels throughout the affected area. 3. Mass felt to be unlikely but pre and postcontrast MRI could be obtained for confirmation. Critical results were called by Dr. Adalberto Escobar to Dr. Velázquez on 11/28/2021 at 06:40. MRI BRAIN W WO CONTRAST Result Date: 11/28/2021 Subacute ischemia involving the right parietal/temporal lobe with associated hemorrhagic/hemosiderin staining. There is mild associated edema, mass effect, and minimal leftward midline shift. Physical Examination: General appearance: alert, cooperative and no distress Mental Status: oriented to person, place and time and normal affect Lungs: clear to auscultation bilaterally, normal effort Heart: regular rate and rhythm, no murmur Abdomen: soft, nontender, nondistended, normal bowel sounds, no masses, hepatomegaly, splenomegaly Extremities: no edema, redness, tenderness in the calves Skin: no gross lesions, rashes, induration Assessment: Hospital Problems Last Modified POA * (Principal) Cerebrovascular accident (CVA) ([facility]) 11/30/2021 Yes Otitis media with effusion, left 11/28/2021 Yes PAF (paroxysmal atrial fibrillation) ([facility]) 12/02/2021 Yes Anemia 11/29/2021 Yes Atrial fibrillation with RVR ([facility]) 12/02/2021 No Primary hypertension 12/02/2021 Yes Type 2 diabetes mellitus without complication, without long-term current use of insulin ([facility]) 12/02/2021 Yes COPD (chronic obstructive pulmonary disease) ([facility]) 12/02/2021 Yes Plan: Middle ear mastoid effusion: Continue cefdinir for total of 5 days and reevaluate response. Outpt ENT evaluation in 4 weeks. Overweight BMI 27: Recommend weight loss lifestyle modification Urinary retention: Voiding trial , continue flomax. Diarrhea: Augmentin was discontinued, patient started on cefdinir. 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 Needs outpt BMP in one week. Add fluid restriction. Paroxysmal atrial fibrillation: Cardiology following. Continue lopressor and amiodarone with plans to start DOAC when okay with neurology. Was taken off of sotalol. Primary HTN: goal blood pressure less than 160, currently at goal. PTOT DVT ppx No other recommendations from medicine perspective will sign off. Please call with questions. Dany Arroyo DO 12/03/2021 8:19 AM Physical Therapy Facility/Department: [address] NEURO ICU Daily Treatment Note NAME: Shahrzad Edgar : 1945 Date of Service: 12/02/2021 Discharge Recommendations: Patient would benefit from continued therapy after discharge PT Equipment Recommendations Equipment Needed: No (defer equipment recommendations to rehab facility) Patient Diagnosis(es): The encounter diagnosis was Cerebrovascular accident (CVA), unspecified mechanism (HCC). Assessment Pt cooperative, motivated, decreased awareness of L sided deficits; leans hard to his L, aware but doesn't correct unless verbally reminded to do so; able to system trainer margie stedy with max A+1, again leans to L during transfer from bed to chair, inconsistently able to correct with verbal and tactile cues. Activity Tolerance: Patient tolerated treatment well Equipment Needed: No (defer equipment recommendations to rehab facility) Plan Plan Plan: (5-6 visits weekly) Current Treatment Recommendations: Strengthening;ROM;Balance training;Functional mobility training;Transfer training;Gait training;Home exercise program;Safety education & training;Patient/Caregiver education & training;Equipment evaluation, education, & procurement;Endurance training;Wheelchair mobility training;Neuromuscular re-education;Cognitive reorientation;Positioning;Thera peutic activities PT Plan of Care: Daily Restrictions Restrictions/Precautions Restrictions/Precautions: Fall Risk, General Precautions Required Braces or Orthoses?: No Position Activity Restriction Other position/activity restrictions: Left Sided Weakness. SBP <160. Subjective Subjective Subjective: denies pain Orientation Overall Orientation Status: Within Functional Limits Orientation Level: Oriented to person;Disoriented to time;Oriented to place;Disoriented to situation Cognition Overall Cognitive Status: Exceptions Arousal/Alertness: Delayed responses to stimuli;Inconsistent responses to stimuli Following Commands: Follows one step commands with increased time;Follows one step commands with repetition;Follows multistep commands with increased time;Follows multistep commands with repitition Attention Span: Attends with cues to redirect;Difficulty attending to directions Safety Judgement: Decreased awareness of need for assistance;Decreased awareness of need for safety Problem Solving: Assistance required to generate solutions;Assistance required to implement solutions;Assistance required to identify errors made;Assistance required to correct errors made;Decreased awareness of errors Insights: Decreased awareness of deficits Initiation: Requires cues for some Sequencing: Requires cues for all Objective Bed Mobility Training Bed Mobility Training: Yes Overall Level of Assistance: Maximum assistance;Assist X1 Interventions: Demonstration;Manual cues;Safety awareness training;Tactile cues;Verbal cues;Visual cues Rolling: Maximum assistance;Assist X1 Supine to Sit: Maximum assistance;Assist X1 (HOB elevated to assist with supine to sit after pt initiated movement with HOB flat) Scooting: Moderate assistance;Assist X1 Balance Sitting: Impaired Sitting - Static: Other (comment) (pt inconsistently able to correct his L lean with frequent to constant cues) Sitting - Dynamic: Poor (constant support) (leans hard to his L) Transfer Training Transfer Training: Yes Overall Level of Assistance: Maximum assistance;Assist X1 (use of margie stedy) Interventions: Demonstration;Manual cues;Safety awareness training;Tactile cues;Verbal cues Sit to Stand: Maximum assistance;Assist X1 (in margie stedy) Stand to Sit: Maximum assistance;Assist X1 Stand Pivot Transfers: Total assistance (margie stedy) Bed to Chair: Total assistance (margie stedy) Gait Training Gait Training: No Wheelchair Management Wheelchair Management: No PT Exercises Exercise Treatment: dangle EOB ~15 minutes min to max A+1--frequent verbal and tactile cues for pt leaning hard to his L in sitting--inconsistently wade to self correct A/AROM Exercises: AA/PROM LLE: heel slides, SAQs; PROM L ankle. all x 5 reps; AROM RLE x 10 reps: heel slides, SAQs; PROM R ankle (chronic weakness); AROM RUE, AAROM LUE: grasp/release x 5 reps--frequent cues to succeed with L hand, driss finger/wrist extension Static Sitting Balance Exercises: dangled EOB working on upright posture, correcting L lean; pt not pushing with his RUE, but still leaning hard to his L Static Standing Balance Exercises: standing in margie stedy with mod to max A+1, frequent cues for upright posture Safety Devices Type of Devices: Call light within reach;Chair alarm in place;Gait belt;Patient at risk for falls;Left in chair;Nurse notified (pt with chair alarm in chair but no box in which to plug it; RN notified/aware) Restraints Restraints Initially in Place: No Goals Short Term Goals Time Frame for Short term goals: 14 visits Short term goal 1: Pt will be able to tolerate EOB sitting SBA for ~15 mins Short term goal 2: Pt will be Sabina with Transfers Short term goal 3: Pt will be Sabina with bed mobility Short term goal 4: Pt will be SBA when ambulating 50ft with least restrictive AD Additional Goals?: No Ergonomist Goals Additional Goals?: No Education Patient Education Education Given To: Patient Education Provided: Role of Therapy;Plan of Care;Precautions;Transfer Training;Fall Prevention Strategies Education Method: Demonstration;Verbal;Teach Back Barriers to Learning: Cognition Education Outcome: Continued education needed Therapy Time Individual Concurrent Group Co-treatment Time In 1411 Time Out 1521 Minutes 70 Timed Code Treatment Minutes: 47 Minutes Zach Thakur, PT Speech Language Pathology Speech Language Pathology [facility] Cognitive and Speech Treatment Note Date: 12/02/2021 Patient s Name: Shahrzad Edgar Diagnosis: Patient Active Problem List Diagnosis Code Cerebrovascular accident (CVA) ([facility]) I63.9 Otitis media with effusion, left H65.92 History of atrial fibrillation Z86.79 Anemia D64.9 Pain: 0/10 Cognitive Treatment Treatment time: 5113-3323 Subjective: [x] Alert [x] Cooperative [] Confused [] Agitated [] Lethargic Objective/Assessment: Recall: Delayed Recall - Associated Lists: 11/29 independently Organization: Category Members - [place]: 02/01 increased to 03/03 with mod verbal cue Problem Solving/Reasoning: Word Deduction: 1516 increased to 16/16 with mod verbal cue Multiple Uses for Objects: 7/8 not increased with max verbal cue Speech: Pt. Seen for O/M treatment program for lingual weakness. Pt. Completed O/M exercises X 6 X 1 sets with min cues. Education provided re: compensatory strategies to increase speech intelligibility/clarity. Pt. Verbalized understanding. Plan: [x] Continue ST services [] Discharge from ST: Discharge recommendations: [] Further therapy recommended at discharge.The patient should be able to tolerate at least 3 hours of therapy per day over 5 days or 15 hours over 7 days. [x] Further therapy recommended at discharge. [] No therapy recommended at discharge. Completed by: Sheri Serna Field Captain Clinician Cosigned By: Ayla White M.S.CCC/LOADING SUPERVISOR [employer] Optimization Manager Documentation Note Admission Dx: Brain mass [G93.89] Past Medical History: has a past medical history of Arthritis, COPD (chronic obstructive pulmonary disease) (HCC), Diabetes mellitus (HCC), History of blood transfusion, and Hypertension. Previous Testing: ECHO 11/30/2021: EF 54%, negative bubble study, no valvular abnormalities. Previous office/hospital visit: None Evelin Griffin RN [employer] Optimization Manager NEUROLOGY INPATIENT PROGRESS NOTE 12/01/2021 Subjective: Shahrzad Edgar is a 76 y.o. male admitted on 11/28/2021 with Brain mass [G93.89] Briefly, this is a 76 y.o. male with history of A. fib, hypertension, hyperlipidemia, diabetes, PAD, COPD, arthritis admitted on 11/28/2021 as a transfer from outside hospital for right temporal headache. Patient developed a headache along with dizziness on day of arrival. Excedrin was tried but did not help. Patient was initially evaluated at [facility] and noted to have left upper extremity weakness as well. Elevated blood pressures with systolic in the 170s. Received 2 doses of labetalol and hydralazine. CT head had concern for right-sided acute infarct with trace hemorrhage, mild effacement and mild midline shift; edema with concern for possible mass. Patient has a history of A. fib for which she is taking Eliquis however it was discontinued in May 2021 due to severe anemia and subsequent GI bleed in September 2021. Patient was initially admitted to neuro ICU and given Decadron 10 mg and Keppra 500 mg IV x1 prior to transfer over. Upon arrival at [place], patient's blood pressure was normotensive. Evaluated by the stroke team and NIH score of 8. MRI brain with and without contrast showed subacute right parietal/temporal lobe ischemic infarct with hemorrhagic transformation and minimal leftward midline shift. Antiplatelets and anticoagulant held. CT head and neck with no LVO. ENT consult was obtained for left middle ear and mastoid effusion. Patient was started on Augmentin. Repeat CT head on 11/29 was stable. GI was consulted for anticoagulation clearance. Today, no acute events reported overnight however patient was noted to have a elevated PVR greater than 400 mL and therefore Higuera was reinserted. No current facility-administered medications on file prior to encounter. Current Outpatient Medications on File Prior to Encounter Medication Sig Dispense Refill aspirin 81 MG EC tablet Take 81 mg by mouth daily atorvastatin (LIPITOR) 80 MG tablet Take 80 mg by mouth daily lisinopril (PRINIVIL;ZESTRIL) 5 MG tablet Take 5 mg by mouth daily sotalol (BETAPACE) 120 MG tablet Take 60 mg by mouth 2 times daily SITagliptin (JANUVIA) 100 MG tablet Take 100 mg by mouth daily Allergies: Shahrzad Edgar is allergic to coconut (cocos nucifera) allergy skin test. Past Medical History: Diagnosis Date Arthritis COPD (chronic obstructive pulmonary disease) (HCC) Diabetes mellitus (HCC) History of blood transfusion Hypertension No past surgical history on file. Medications: lisinopril 5 mg Oral Daily ofloxacin 5 drop Left Ear Daily enoxaparin 30 mg SubCUTAneous BID [Held by provider] sotalol 60 mg Oral BID lisinopril 5 mg Oral Daily atorvastatin 80 mg Oral Nightly amoxicillin-clavulanate 1 tablet Oral 2 times per day insulin lispro 0-16 Units SubCUTAneous Q6H PRN Meds include: acetaminophen, ondansetron OR ondansetron, glucose, dextrose bolus OR dextrose bolus, glucagon (rDNA), dextrose, sodium chloride flush, labetalol Objective: BP 133/71 Pulse 66 Temp 98.6 F (37 C) (Oral) Resp 17 Ht 6' 1 (1.854 m) Wt 207 lb 3.7 oz (94 kg) SpO2 94% BMI 27.34 kg/m Blood pressure range: Systolic (24hrs), Av , Min:113 , Max:164 ; Diastolic (24hrs), Av, Min:68, Max:91 ROS: As per HPI CONSTITUTIONAL: negative for fatigue and malaise EYES: negative for double vision and photophobia HEENT: negative for tinnitus and sore throat RESPIRATORY: negative for cough, shortness of breath CARDIOVASCULAR: negative for chest pain, palpitations, or syncope GASTROINTESTINAL: negative for abdominal pain, nausea, vomiting, diarrhea, or constipation GENITOURINARY: negative for incontinence or retention MUSCULOSKELETAL: negative for neck or back pain, negative for extremity pain NEUROLOGICAL: Negative for seizures, headaches, weakness, numbness, confusion, aphasia, dysarthria PSYCHIATRIC: negative for agitation, hallucination, SI/HI SKIN Negative for spontaneous contusions, rashes, or lesions NEUROLOGIC EXAMINATION GENERAL Appears comfortable and in no distress HEENT NC/ AT HEART S1 and S2 heard; palpation of pulses: radial pulse NECK Supple and no bruits heard MENTAL STATUS: Alert, oriented, intact memory, no confusion, normal speech, normal language, no hallucination or delusion CRANIAL NERVES: II - Visual blunt intact to confrontation III,IV, - PERR, EOMs full, no ptosis V - Normal facial sensation VII - Normal facial symmetry VIII - Intact hearing IX,X - Symmetrical palate XI - Symmetrical shoulder shrug XII - Midline tongue, no atrophy MOTOR FUNCTION: RUE: Significant for good strength of grade 5/5 in proximal and distal muscle groups LUE: Significant for good strength of grade 3/5 in proximal and distal muscle groups RLE: Significant for good strength of grade 5/5 in proximal and distal muscle groups LLE: Significant for good strength of grade 3/5 in proximal and distal muscle groups Normal bulk, normal tone and no involuntary movements, no tremor SENSORY FUNCTION: Normal touch, normal pin, normal vibration, normal proprioception CEREBELLAR FUNCTION: Intact fine motor control over upper limbs and lower limbs REFLEX FUNCTION: Symmetric in upper and lower extremities, no Babinski sign STATION and GAIT Not tested due to condition Data: Lab Results: CBC: Recent Labs 11/29/21 0546 11/30/21 0811 12/01/21 0352 WBC 19.0* 13.7* 15.0* HGB 13.6 13.9 15.6 PLT 250 230 235 BMP: Recent Labs 11/29/21 0546 11/30/21 0811 12/01/21 0352 NA 133* 134* 132* K 4.4 4.5 4.2 CL 101 102 102 CO2 20 21 19* BUN 14 17 16 CREATININE 0.89 0.79 0.76 GLUCOSE 198* 196* 176* Lab Results Component Value Date CHOL 122 11/28/2021 LDLCHOLESTEROL 74 11/28/2021 HDL 34 (L) 11/28/2021 TRIG 71 11/28/2021 LABA1C 8.1 (H) 11/28/2021 No results found for: PHENYTOIN, PHENYTOIN, VALPROATE, CBMZ IMAGING CT HEAD (11/28/2021): Subacute infarct R M2 inferior division with petechial hemorrhage in areas along the cortical ribbon & apparent normalization of cortical density consistent with fogging effect. Associated edema results in sulcal & R lateral ventricle effacement with 3mm L-francois shift. F/U CT HEAD (11/29/2021): Similar presumed R MCA distribution infarct with mild adjacent mass effect & minimal L-francois midline shift. Similar punctate focus of presumed hemorrhage. MRI BRAIN W/WO (11/28/2021): Subacute ischemia involving R parietal/temporal lobe with associated hemorrhagic staining. There is mild associated edema, mass effect & minimal L-francois midline shift. CTA HEAD & NECK (11/28/2021): No LVO, however there is marked paucity of vessels throughout the affected area. ECHO (11/30/2021): Assessment and Plan 76 y.o. male with history of A. fib, hypertension, hyperlipidemia, diabetes, PAD, COPD, arthritis admitted on 11/28/2021 as a transfer from outside hospital for right temporal headache. Right MCA stroke with hemorrhagic transformation -GI okay to start anticoagulation -Recommend repeat CT head on 12/19/2021, If negative/stable, AC can be started at that time. Continue on Statin PT/OT/LOADING SUPERVISOR Urinary retention - will obtain urology consulation Zena Irby MD PGY-4 Neurology 12/01/2021 11:32 AM Associated attestation - Allan Pemberton DO - 12/01/2021 9:00 PM EDT Attending Physician Statement: I have discussed the case of Shahrzad Edgar, including pertinent history and exam findings with the resident. I have seen and examined the patient and the lamas elements of the encounter have been performed by me. I have reviewed medications, clinical laboratory, imaging and other diagnostic tests with the residents. I agree with the assessment, plan and orders as documented by the resident with changes made to the note as needed. Allan Normcarrie 12/01/2021 9:00 PM Echo was completed at the bedside. Physical Therapy Facility/Department: [address] NEUR[facility] ICU Daily Treatment Note Name: Shahrzad Edgar : 1945 Date of Service: 11/30/2021 Discharge Recommendations: Patient would benefit from continued therapy after discharge PT Equipment Recommendations Other: Continue to assess for DME needs Patient Diagnosis(es): There were no encounter diagnoses. Past Medical History: has a past medical history of Arthritis, COPD (chronic obstructive pulmonary disease) (HCC), Diabetes mellitus (HCC), History of blood transfusion, and Hypertension. Past Surgical History: has no past surgical history on file. Assessment Body Structures, Functions, Activity Limitations Requiring Skilled Therapeutic Intervention: Decreased functional mobility ;Decreased ADL status;Decreased strength;Decreased cognition;Decreased balance;Decreased coordination Assessment: Pt had a decline with tolerance to sitting EOB. Pt able to sit EOB maxA x 8 mins with c/o fatigue and request to return to supine after ~8mins. Pt had c/o headache upon exiting; RN notified. Pt would benefit from continued acute PT to address deficits. Therapy Prognosis: Fair Activity Tolerance Activity Tolerance: Patient tolerated treatment well;Patient limited by fatigue;Treatment limited secondary to decreased cognition;Patient limited by pain Activity Tolerance Comments: Pt fatigued easily today while sitting EOB Plan Plan Plan: (6x/wk) Current Treatment Recommendations: Strengthening, ROM, Balance training, Functional mobility training, Transfer training, ADL/Self-care training, Cognitive/Perceptual training, Gait training, Stair training, Home exercise program, Safety education & training, Patient/Caregiver education & training, Vestibular rehab, Equipment evaluation, education, & procurement Safety Devices Type of Devices: All fall risk precautions in place, Bed alarm in place, Call light within reach, Left in bed, Nurse notified Restraints Restraints Initially in Place: No Restrictions Restrictions/Precautions Restrictions/Precautions: Fall Risk, General Precautions Required Braces or Orthoses?: No Position Activity Restriction Other position/activity restrictions: Left Sided Weakness. SBP <160. Subjective General Chart Reviewed: Yes Response To Previous Treatment: Patient unable to report, no changes reported from family or staff Family / Caregiver Present: No Subjective Subjective: RN and pt agreeable to PT. Pt supine upon arrival. Pt pleasant and cooperative t/o. Pt c/o 10/30 headache after session; RN notified. Cognition Orientation Overall Orientation Status: Within Functional Limits Cognition Overall Cognitive Status: Exceptions Arousal/Alertness: Delayed responses to stimuli;Inconsistent responses to stimuli Following Commands: Follows one step commands with increased time;Follows one step commands with repetition Attention Span: Difficulty attending to directions;Attends with cues to redirect Memory: Decreased short term memory;Decreased recall of recent events Safety Judgement: Decreased awareness of need for assistance;Decreased awareness of need for safety Problem Solving: Assistance required to generate solutions;Assistance required to implement solutions;Assistance required to correct errors made;Decreased awareness of errors Insights: Decreased awareness of deficits Initiation: Requires cues for all Sequencing: Requires cues for all Cognition Comment: Pt fatigued t/o Objective Bed mobility Bridging: Minimal assistance (PROM to position L LE into flexion) Supine to Sit: Maximum assistance;2 Person assistance Sit to Supine: Maximum assistance;2 Person assistance Bed Mobility Comments: assessed with HOB elevated. Pt sat EOB x 8 minutes, pushing with R UE to the L side with maxA x 1-2 to maintain. Tactile and verbal cues t/o to diminish pushing Transfers Comment: didn't assess d/t poor sitting balance Balance Posture: Fair Sitting - Static: Poor Sitting - Dynamic: Poor Comments: Pt pushed heavily to the L side, required maxA to maintain sitting balance Exercise Treatment: Pt performed supine>sit transfer MaxA and sat EOB for ~8 mins w/MaxA and L side blocking to prevent collapse to L side. Pt required repeated verbal and tactile cueing for antigravity movement and to diminish L side push with poor return demonstration. Pt c/o fatigue and requested return to supine after sitting EOB for ~8 mins. PROM Exercises: L LE PROM KTC, hip abd/add, AAROM to L ankle DF/PF x 10 reps A/AROM Exercises: Supine: R UE hand over L UE for shoulder flexion x 5 reps, AAROM/PROM L UE x 10 reps shoulder flexion Dynamic Sitting Balance Exercises: AROM to R LE LAQ sitting at EOB x 10 reps; encouraged increased awareness of L UE with R UE during sitting balance to help decrease pushing with R UE. OutComes Score AM-PAC Score AM-PAC Inpatient Mobility Raw Score : 8 (11/30/211436) AM-PAC Inpatient T-Scale Score : 28.52 (11/30/211436) Mobility Inpatient CMS 0-100% Score: 86.62 (11/30/211436) Mobility Inpatient CMS G-Code Modifier : CM (11/30/211436) Goals Short Term Goals Time Frame for Short term goals: 14 visits Short term goal 1: Pt will be able to tolerate EOB sitting SBA for ~15 mins Short term goal 2: Pt will be Sabina with Transfers Short term goal 3: Pt will be Sabina with bed mobility Short term goal 4: Pt will be SBA when ambulating 50ft with least restrictive AD Additional Goals?: No Residential Goals Additional Goals?: No Education Patient Education Education Given To: Patient Education Provided: Role of Therapy;Plan of Care Education Method: Demonstration;Verbal Barriers to Learning: Cognition Education Outcome: Continued education needed;Demonstrated understanding Therapy Time Individual Concurrent Group Co-treatment Time In 1412 Time Out 1435 Minutes 23 Timed Code Treatment Minutes: 23 Minutes LITTLE SELF PTA Neurology Nurse Practitioner Progress Note INTERVAL HISTORY: This is a 76 y.o. male admitted 11/28/2021 for R temporal headache. This is a follow-up neurology progress note. The patient was examined and the chart was reviewed. Discussed with the pt & RN. There were no acute events overnight. No new motor, sensory, visual or bulbar symptoms. Pt was A&Ox3, with residual L sided weakness. Headache had resolved. HPI: Shahrzad Edgar is a 76 y.o. male with H/O A fib, HTN, HLD, DM, PAD, COPD, arthritis, who was admitted as a transfer from [facility] on 11/28/2021 for R temporal headache. Patient reported he had developed right temporal headache and dizziness on the day of arrival. Excedrin did not help. He was seen by his batch plant operator and was told that his BP was elevated; he was started on lisinopril 5 mg daily. He was initially evaluated at [facility]. Patient was noted to have left upper extremity weakness. Patient's blood pressure was 176/96 mmHg. He received 2 doses of labetalol 10 mg and hydralazine 10 mg. He was noted to have piece of cotton in his left ear that had purulent material when removed. He received CT head that was concerning for right sided acute infarct with trace hemorrhage, mild effacement and mild midline shift; with edema there was concern for possible mass. Patient has history of A. fib for which she was taking Eliquis however it was discontinued in May 2021 due to severe anemia and subsequent GI bleed in September 2021. Case was discussed with Dr. Velázquez who recommended Decadron 10 mg IV and Keppra 500 mg IVPB x1 prior to be transferred to [facility] for higher level of care. Patient was directly admitted to neuro ICU. HOSPITAL COURSE: Upon arrival, the pressure was 130/64 mmHg, pulse 87. Patient was evaluated by the stroke team; NIH score was 8. MRI brain with and without contrast showed subacute R parietal/temporal lobe ischemic infarct with hemorrhagic transformation & minimal L-francois midline shift. Antiplatelets and AC were held. CT head and neck was negative for LVO. ENT was consulted for left middle ear and mastoid effusion. Patient was started on Augmentin. Repeat CT head on 11/29 was stable. Patient's status was changed to stepdown unit under neurology service on 11/29. GI was consulted for AC clearance. Patient was started on Lipitor 80 mg nightly. Was started on lisinopril 5 mg daily. lisinopril 5 mg Oral Daily ofloxacin 5 drop Left Ear Daily enoxaparin 30 mg SubCUTAneous BID [Held by provider] sotalol 60 mg Oral BID lisinopril 5 mg Oral Daily atorvastatin 80 mg Oral Nightly amoxicillin-clavulanate 1 tablet Oral 2 times per day insulin lispro 0-16 Units SubCUTAneous Q6H Past Medical History: Diagnosis Date Arthritis COPD (chronic obstructive pulmonary disease) (HCC) Diabetes mellitus (HCC) History of blood transfusion Hypertension No past surgical history on file. PHYSICAL EXAM: Blood pressure (!) 142/99, pulse 98, temperature 97.9 F (36.6 C), temperature source Oral, resp. rate 20, height 6' 1 (1.854 m), weight 207 lb 3.7 oz (94 kg), SpO2 96 %. ROS: Constitutional Negative for fever and chills HEENT + L sided weakness Eyes Negative for photophobia, pain and discharge Respiratory Negative for hemoptysis and sputum Cardiovascular Negative for orthopnea, claudication and PND Gastrointestinal Negative for abdominal pain, diarrhea, blood in stool Musculoskeletal Negative for joint pain, negative for myalgia Skin Negative for rash or itching Endo/heme/allergies Negative for polydipsia, environmental allergy Psychiatric/behavioral Negative for suicidal ideation. Patient is not anxious Neurological Examination: Mental status Patient was sleeping but easily arousable, was alert and oriented x 3; following all simple commands; slow response, speech is fluent, no dysarthria, aphasia Cranial nerves II - visual blunt intact to confrontation; pupils reactive III, IV, - extraocular muscles intact; no SAMMIE; no nystagmus; no ptosis V - normal facial sensation VII - normal facial symmetry VIII - intact hearing IX, X - symmetrical palate elevation XI - asymmetrical shoulder shrug XII - midline tongue without atrophy or fasciculation Motor function Strength: Was able to lift all limbs antigravity with LUE & LLE drift L sided extremities 3+/5 Normal bulk and tone Sensory function Grossly intact Cerebellar No visible tremors Reflex function 2/4 symmetric throughout L plantar - extensor response Gait Not tested DATA Lab Results Component Value Date WBC 13.7 (H) 11/30/2021 RBC 4.70 11/30/2021 HGB 13.9 11/30/2021 HCT 41.7 11/30/2021 PLT 230 11/30/2021 NA 134 (L) 11/30/2021 K 4.5 11/30/2021 MG 2.6 11/29/2021 CL 102 11/30/2021 CREATININE 0.79 11/30/2021 BUN 17 11/30/2021 CO2 21 11/30/2021 LABA1C 8.1 (H) 11/28/2021 Lab Results Component Value Date CHOL 122 11/28/2021 Lab Results Component Value Date TRIG 71 11/28/2021 Lab Results Component Value Date HDL 34 (L) 11/28/2021 Lab Results Component Value Date LDLCHOLESTEROL 74 11/28/2021 No results found for: LABVLDL, VLDL Lab Results Component Value Date CHOLHDLRATIO 3.6 11/28/2021 11/28/21 07:37 CRP 13.7 (H) DIAGNOSTIC DATA: CT HEAD (11/28/2021): Subacute infarct R M2 inferior division with petechial hemorrhage in areas along the cortical ribbon & apparent normalization of cortical density consistent with fogging effect. Associated edema results in sulcal & R lateral ventricle effacement with 3mm L-francois shift. F/U CT HEAD (11/29/2021): Similar presumed R MCA distribution infarct with mild adjacent mass effect & minimal L-francois midline shift. Similar punctate focus of presumed hemorrhage. MRI BRAIN W/WO (11/28/2021): Subacute ischemia involving R parietal/temporal lobe with associated hemorrhagic staining. There is mild associated edema, mass effect & minimal L-francois midline shift. CTA HEAD & NECK (11/28/2021): No LVO, however there is marked paucity of vessels throughout the affected area. ECHO (11/30/2021): IMPRESSION: 76 y.o. male admitted with R temporal headache & L hemiparesis; MRI brain - subacute R parietal/temporal lobe ischemic infarct with hemorrhagic transformation & minimal L-francois midline shift. F/U CT head (11/29) - stable. Pt was A&Ox3, with residual L hemiparesis. Headache had resolved A fib. Pt was on Eliquis that was D/C'd in 05/2021 due to severe anemia & GI bleed (09/2021) L middle ear & mastoid effusion; was started on PO Augmentin x 7 days & Ofloxacin drops x 7 days, by ENT HTN; on lisinopril 5 mg QD Comorbid conditions - HLD, DM, PAD, COPD, arthritis PLAN: SBP goal <160 mmHg Echo - result awaited Continue Lipitor 80 mg HS DVT Px; Lovenox 30 mg SC BID Continue PT/OT/ST Needs to F/U with ENT within 3-4 weeks GI okay with starting AC. We recommend repeat CT head on 12/19/2021; if negative/stable, AC can be started. Needs to F/U with neurology as OP after CT head is done D/C planning Please note that this note was generated using a voice recognition dictation software. Although every effort was made to ensure the accuracy of this automated wastewater technician, some errors in wastewater technician may have occurred. Associated attestation - Allan Pemberton DO - 11/30/2021 11:37 PM EDT Attending Physician Statement: I have discussed the care of Shahrzad Edgar, including pertinent history and exam findings with the YARY. I have seen and examined the patient and the lamas elements of the encounter have been performed by me. I have reviewed medications, clinical laboratory, imaging and other diagnostic tests with the YARY. I agree with the assessment, plan and orders as documented by the YARY with changes made to the note as needed. Allan Pemberton DO 11/30/2021 11:36 PM 2214 new orders received Mag and extra strength tylenol to treat headache clarified and admin per orders Irregular hr noted this am Pt has a headache 9/10 pain, per pt tylenol ordered doesn't help at all. Neuro MD notified Occupational Therapy Facility/Department: [address] [facility] ICU Occupational Therapy Initial Assessment Name: Shahrzad Edgar : 1945 Date of Service: 11/29/2021 Discharge Recommendations: Patient would benefit from continued therapy after discharge, 24 hour supervision or assist OT Equipment Recommendations Other: Will continue to make appropriate recommendations for DME / AE as Pt progresses. Patient Diagnosis(es): There were no encounter diagnoses. Past Medical History: has a past medical history of Arthritis, COPD (chronic obstructive pulmonary disease) (HCC), Diabetes mellitus (HCC), History of blood transfusion, and Hypertension. Past Surgical History: has no past surgical history on file. Assessment Performance deficits / Impairments: Decreased functional mobility ;Decreased endurance;Decreased coordination;Decreased ADL status;Decreased posture;Decreased balance;Decreased ROM;Decreased strength;Decreased vision/visual deficit;Decreased safe awareness;Decreased cognition;Decreased fine motor control Assessment: Pt has deficits at this time with his ability to independently / safely complete daily tasks, balance and mobility, endurance, and fluctuating cognition. At this time, the Pt has decreased ability to return to PLOF and prior living situation. He will benefit from continued participation in acute and post-acute OT services to improve independence / to improve functional activity participation. Prognosis: Good;Fair Decision Making: Medium Complexity REQUIRES OT FOLLOW-UP: Yes Activity Tolerance Activity Tolerance: Patient limited by pain;Patient limited by fatigue;Treatment limited secondary to decreased cognition Plan Plan Times per Week: 4-5x/week Current Treatment Recommendations: Strengthening, Balance training, ROM, Functional mobility training, Endurance training, Neuromuscular re-education, Positioning, Equipment evaluation, education, & procurement, Patient/Caregiver education & training, Safety education & training, Pain management, Cognitive reorientation, Self-Care / ADL, Cognitive/Perceptual training, Coordination training, Sensory integraion Restrictions Restrictions/Precautions Restrictions/Precautions: Fall Risk, General Precautions Required Braces or Orthoses?: No Position Activity Restriction Other position/activity restrictions: Left Sided Weakness. SBP <160. Subjective General Patient assessed for rehabilitation services?: Yes Family / Caregiver Present: No Diagnosis: Brain mass, Right middle cerebral artery stroke, Otitis media with effusion (Left). Subjective Subjective: RN approved Pt to be seen for OT Evaluation. General Comment Comments: Pt was agreeable / cooperative throughout. Reported BENAVIDES pain, which worsened with movement / activity. Social/Functional History Social/Functional History Lives With: ( a lady , significant other) Type of Home: Apartment (2 bedroom, first floor) Home Layout: One level Home Access: Stairs to enter with rails Entrance Stairs - Number of Steps: 3 Entrance Stairs - Rails: Left Bathroom Shower/Tub: Tub/Shower unit Bathroom Toilet: Standard Bathroom Equipment: Grab bars in shower, Shower chair (uses shower chair, bathing self) Bathroom Accessibility: Accessible Home Equipment: Cane, Rollator ADL Assistance: Independent (Independent / Mod I for all ADLs) Homemaking Assistance: Independent Homemaking Responsibilities: Yes (split) Ambulation Assistance: Independent (SPC for longer distances, no AD use in appartment) Transfer Assistance: Independent Active Contract Designer: Yes Mode of Transportation: Car Occupation: Retired Leisure & Hobbies: casino Objective Safety Devices Type of Devices: All fall risk precautions in place;Bed alarm in place;Call light within reach;Gait belt;Left in bed;Nurse notified (RN present at end of OT session) Restraints Restraints Initially in Place: No Bed Mobility Training Bed Mobility Training: Yes Overall Level of Assistance: Maximum assistance;Assist X1;Additional time;Adaptive equipment (Max X1 Assist. HOB elevated, Bedrail (Right).) Interventions: Visual cues;Verbal cues;Manual cues (Max Cues task initiation / motor planning / integration of LUE & Hand.) Rolling: Maximum assistance;Adaptive equipment;Additional time;Assist X1 (from Supine to Right Sidelying) Supine to Sit: Maximum assistance;Assist X1;Additional time;Adaptive equipment (Pt demo'd significant Left sided lean (in sitting). Required Max Assist progressing to Mod Assist for static sitting balance. Demo'd pushing through RUE (when holding bedrail, and when supporting on bed). Max cues / assist for upright posture.) Scooting: Maximum assistance;Assist X1;Additional time;Adaptive equipment Balance Sitting: Impaired Sitting - Static: Poor (constant support);Other (comment) (Pt demo'd significant Left sided lean (in sitting). Required Max Assist progressing to Mod Assist for static sitting balance. Demo'd pushing through RUE (when holding bedrail, and when supporting on bed). Maintained ~4-5 mins.) Standing: (Unable to complete this date, not appropriate.) Transfer Training Transfer Training: No (Due to high level of assist for Static Sitting EOB; increased fatigue with sitting EOB - Bed Moblity and Sitting EOB completed only todday. No further standing / transfers / mobility.) ADL UE Dressing: Maximum assistance;Increased time to complete;Verbal cueing UE Dressing Skilled Clinical Factors: Supine with HOB elevated, Pt completed UBD to don and manage gown. LE Dressing: Maximum assistance;Increased time to complete;Verbal cueing LE Dressing Skilled Clinical Factors: Supine with HOB elevated, Pt participated in LBD to don Bilateral socks (Max Assist, Max Cues). Activity Tolerance Activity Tolerance: Patient tolerated treatment well;Patient limited by fatigue;Treatment limited secondary to decreased cognition Vision Vision: Impaired Vision Exceptions: Wears glasses for reading Tracking: (Mild Left Neglect. Pt able to visually track Left and turn head to Left (to focus); but requires Mod Cues (verbal / visual / tactile).) Hearing Hearing: Exceptions to WFL Hearing Exceptions: Hard of hearing/hearing concerns Cognition Overall Cognitive Status: Exceptions Arousal/Alertness: Delayed responses to stimuli;Inconsistent responses to stimuli Following Commands: Follows one step commands with increased time;Follows one step commands with repetition Attention Span: Difficulty attending to directions;Attends with cues to redirect Memory: Decreased short term memory;Decreased recall of recent events Safety Judgement: Decreased awareness of need for assistance;Decreased awareness of need for safety Problem Solving: Assistance required to generate solutions;Assistance required to implement solutions;Assistance required to correct errors made;Decreased awareness of errors Insights: Decreased awareness of deficits Initiation: Requires cues for some Sequencing: Requires cues for some Cognition Comment: Pt appeareed obtunded to some external stimuli. Pt responses to verbal cueing were affirmative but with poor return demonstration. Orientation Overall Orientation Status: Impaired Orientation Level: Oriented to person;Disoriented to time;Oriented to place;Disoriented to situation Education Given To: Patient Education Provided: Role of Therapy;Plan of Care;Equipment;Precautions;ADL Adaptive Strategies;Energy Conservation;Transfer Training;Fall Prevention Strategies Education Provided Comments: Integration of LUE / Left Hand. Visual attention to Left. Positioning of Left UE when supine in bed. Education Method: Verbal;Demonstration Barriers to Learning: Cognition (Mild Left Neglect) Education Outcome: Verbalized understanding;Continued education needed ROM LUE AROM (degrees) LUE AROM : Exceptions LUE General AROM: Decreased (but partial) AROM throughout. L Shoulder Flexion 0-180: AROM 0 to ~60 // MMT 2-/5 L Elbow Flexion 0-145: AROM 0 to ~100 // MMT 2-/5 L Elbow Extension 145-0: AROM ~100 to 0 // MMT 2-/5 L Wrist Flexion 0-80: AROM 0 to ~30 // MMT 2-/5 L Wrist Extension 0-70: AROM 0 to ~30 // MMT 2-/5 Left Hand AROM (degrees) Left Hand General AROM: Partial AROM Left Hand & Digits. Able to complete Left hand grasp and release (grasp MMT 2-/5). RUE AROM (degrees) RUE AROM : WFL Right Hand AROM (degrees) Right Hand AROM: WFL AM-PAC Score AM-PAC Inpatient Daily Activity Raw Score: 7 (11/29/211742) AM-PAC Inpatient ADL T-Scale Score : 20.13 (11/29/211742) ADL Inpatient CMS 0-100% Score: 92.44 (11/29/211742) ADL Inpatient CMS G-Code Modifier : CM (11/29/211742) Goals Short Term Goals Time Frame for Short term goals: Within 14 treatment sessions Short Term Goal 1: Pt will demo Fair Tolerance / Participation with LUE HEP (for improved LUE AROM / Active Grasp). Short Term Goal 2: After participation in LUE weight-bearing, Pt will maintain Fair Dynamic Sitting Balance (13-15 mins) during functional tasks. Short Term Goal 3: Pt will participate in UB and LB ADLs with Min Assist with 50% integration of LUE. Short Term Goal 4: Pt will complete ADL and Bathroom Transfers with Mod Assist without LOB. Short Term Goal 5: Pt will maintain Fair- Dynamic Standing Balance (5-6 mins) while participating in functional tasks. Therapy Time Individual Concurrent Group Co-treatment Time In 0850 Time Out 0922 Minutes 32 Timed Code Treatment Minutes: 24 Minutes (ADL + TherAct) MUNDO Richey OTR/L Physical Therapy Facility/Department: [address] NEURO ICU Physical Therapy Initial Assessment Name: Shahrzad Edgar : 1945 Date of Service: 11/29/2021 HPI History Obtained From: patient, chart review The patient is a 76 y.o. male with hx of DM, CAD on baby aspirin and former smoker, who presented with right sided temporal headache and dizziness which started earlier today (unable to state exact time). He was initially evaluated at [facility]. 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 No improvement with Excedrin. Patient denies any other blood thinners aside from aspirin. At [facility] patient noted to have clear speech, no facial droop and with sensation and strength intact in all extremities. He was noted to have left hand shaking, with positive left pronator drift. BP 176/96 and he was given two doses of 10mg labetalol and 10mg of Hydralazine. EST elevated at 42 and leukocytosis at 12.6. he was noted to have piece of cotton in his left ear for some drainage and when removed, did have purulent material. CT head from [facility] showed area of hypoattenuation in right parietotemporal region with right sided sulcal effacement and loss of mitchell white differentiation concerning for an acute infarct. There is a trace hemorrhage noted within the anterior right temporal lobe measuring 4.5 x7.8mm. Mild effacement of the right lateral ventricles visualized, no evidence for obstructive hydrcephalus. Minimal leftward 4mm midline shift with no evidence for herniation. Also noted to have complete opacification of the left mastoid air cells. Discharge Recommendations: Further therapy recommended at discharge.The patient should be able to tolerate at least 3 hours of therapy per day over 5 days or 15 hours over 7 days. This patient may benefit from a Physical Medicine and Rehab consult. PT Equipment Recommendations Equipment Needed: No Other: Continue to assess for DME needs Patient Diagnosis(es): There were no encounter diagnoses. Past Medical History: has a past medical history of Arthritis, COPD (chronic obstructive pulmonary disease) (HCC), Diabetes mellitus (HCC), History of blood transfusion, and Hypertension. Past Surgical History: has no past surgical history on file. Assessment Body Structures, Functions, Activity Limitations Requiring Skilled Therapeutic Intervention: Decreased functional mobility ;Decreased ADL status;Decreased strength;Decreased cognition;Decreased balance;Decreased coordination Assessment: Pt able to sit EOB ModA L lean for ~15 mins with c/o fatigue and request to return to supine after ~13 mins. Pt had no c/o adverse s/s other than fatigue. Pt would benefit from continued acute PT to address deficits. Therapy Prognosis: Fair Decision Making: Medium Complexity Requires PT Follow-Up: Yes Activity Tolerance Activity Tolerance: Patient tolerated treatment well;Patient limited by fatigue;Treatment limited secondary to decreased cognition Plan Plan Plan: (6x/wk) Current Treatment Recommendations: Strengthening, ROM, Balance training, Functional mobility training, Transfer training, ADL/Self-care training, Cognitive/Perceptual training, Gait training, Stair training, Home exercise program, Safety education & training, Patient/Caregiver education & training, Vestibular rehab, Equipment evaluation, education, & procurement Safety Devices Type of Devices: All fall risk precautions in place, Bed alarm in place, Call light within reach, Gait belt, Patient at risk for falls, Left in bed, Nurse notified Restraints Restraints Initially in Place: No Restrictions Restrictions/Precautions Restrictions/Precautions: Fall Risk, General Precautions Required Braces or Orthoses?: No Position Activity Restriction Other position/activity restrictions: SBP <160 Subjective General Chart Reviewed: Yes Patient assessed for rehabilitation services?: Yes Response To Previous Treatment: Not applicable Family / Caregiver Present: No Follows Commands: Impaired Other (Comment): Pt required repeated verbal and tactile cueing with good response and poor follow through. General Comment Comments: Pt and RN agreeable to PT. Pt asleep and supine in bed with HOB elevated upon arrival for PT eval Subjective Subjective: Pt reported no c/o pain or numbness/tingling. Social/Functional History Social/Functional History Lives With: ( a lady ) Type of Home: Apartment (2 bedroom, first floor) Home Layout: One level Home Access: Stairs to enter with rails Entrance Stairs - Number of Steps: 3 Entrance Stairs - Rails: Left Bathroom Shower/Tub: Tub/Shower unit Bathroom Toilet: Standard Bathroom Equipment: Grab bars in shower, Shower chair (uses shower chair, bathing self) Bathroom Accessibility: Accessible Home Equipment: Cane, Rollator ADL Assistance: Independent Homemaking Assistance: Independent Homemaking Responsibilities: Yes (split) Ambulation Assistance: Independent (SPC for longer distances, no AD use in appartment) Transfer Assistance: Independent Active Contract Designer: Yes Mode of Transportation: Car Occupation: Retired Leisure & Hobbies: casino Vision/Hearing Vision: Needs glasses for reading Hearing: Impaired, Hard of hearing Cognition Orientation Orientation Level: Oriented to person;Oriented to time;Disoriented to place Cognition Overall Cognitive Status: Exceptions Arousal/Alertness: Delayed responses to stimuli;Inconsistent responses to stimuli Following Commands: Follows one step commands with increased time;Follows one step commands with repetition;Follows multistep commands with repitition;Inconsistently follows commands;Follows multistep commands with increased time Attention Span: Difficulty attending to directions Safety Judgement: Decreased awareness of need for assistance;Decreased awareness of need for safety Problem Solving: Assistance required to generate solutions;Assistance required to implement solutions;Assistance required to correct errors made;Decreased awareness of errors Insights: Decreased awareness of deficits Initiation: Requires cues for some Sequencing: Requires cues for some Cognition Comment: Pt responses to external stimuli were delayed. Pt responses to verbal cueing were affirmative but with poor return demonstration. Objective PROM RLE (degrees) RLE General PROM: Hips to 90, Knees 0-90. Limited assessment d/t assist lvl @ EOB. PROM LLE (degrees) LLE General PROM: Hips to 90, Knees 0-90. Limited assessment d/t assist lvl @ EOB. PROM RUE (degrees) RUE General PROM: Shldr flexion to 90 AAROM. Limited assessment d/t assist lvl @ EOB. PROM LUE (degrees) LUE General PROM: Shldr flexion to 90 AAROM. Limited assessment d/t assist lvl @ EOB. Strength RLE Strength RLE: WFL Comment: Min Antigravity Strength LLE Comment: Some antigravity with giving away after ~5 sec antigravity hold Strength RUE Strength RUE: WFL Comment: Minimum antigravity Strength LUE Comment: Some antigravity with giving away after ~5 sec antigravity hold Bed mobility Supine to Sit: Maximum assistance;2 Person assistance Sit to Supine: Maximum assistance Balance Posture: Fair (Kyphotic T-spine with elevated shoulders) Sitting - Static: Poor;+ Sitting - Dynamic: Poor Comments: Pt pushed heavily to the L, required ModA to prevent collapse to L side Exercise Treatment: Pt performed supine>sit transfer MaxA and sat EOB for ~15 mins w/ModA d/t L side lean/push. Pt required repeated verbal and tactile cueing for antigravity movement and to diminish L side push and return to midline with minimal return demonstration. Pt c/o fatigue and requested return to supine after sitting EOB for ~13 mins. AM-PAC Score [facility] Inpatient Mobility Raw Score : 9 (11/29/211544) [facility] Inpatient T-Scale Score : 30.55 (11/29/211544) Mobility Inpatient CMS 0-100% Score: 81.38 (11/29/211544) Mobility Inpatient [facility] G-Code Modifier : CM (11/29/21 154) Goals Short Term Goals Time Frame for Short term goals: 14 visits Short term goal 1: Pt will be able to tolerate EOB sitting SBA for ~15 mins Short term goal 2: Pt will be Sabina with Transfers Short term goal 3: Pt will be Sabina with bed mobility Short term goal 4: Pt will be SBA when ambulating 50ft with least restrictive AD Additional Goals?: No Ergonomist Goals Additional Goals?: No Education Patient Education Education Given To: Patient Education Provided: Role of Therapy;Plan of Care Education Method: Demonstration;Verbal Barriers to Learning: Cognition Education Outcome: Continued education needed;Demonstrated understanding Therapy Time Individual Concurrent Group Co-treatment Time In 1443 Time Out 1520 Minutes 37 Timed Code Treatment Minutes: 25 Minutes SHAQUILLE JENKINS This treatment/evaluation completed by signing SPT. Signing PT agrees with treatment and documentation. Images from the original note were not included. Neuro Critical Care Sign Out to Neurology Date and time: 11/29/2021 2:50 PM Patient's name: Shahrzad Edgar Patient's account/billing number: [id number] Patient's Date of : 1945 Age: 76 y.o. Date of Admission: 11/28/2021 3:15 AM Length of stay during current admission: 1 Primary Care Physician: No primary care provider on file. Code Status: Full Code Mode of physician to physician communication: [] Via telephone [x] In person Date and time of sign-out: 11/29/2021 2:50 PM Accepting Neurology HARNESS PLACER: Adina Do NP Accepting team's attending: Dr. 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 Found to have right parietotemporal subacute infarct w/hemorrhagic conversion. Also noted to have possible L mastoiditis, ENT evaluated started on abx. Repeat CTH 11/29 stable. Patient tx to stepdown Procedures during patient's ICU stay: None Current Vitals: BP (!) 176/84 Comment: prn given Pulse 73 Temp 98.6 F (37 C) Resp 14 Ht 6' 1 (1.854 m) Wt 207 lb 3.7 oz (94 kg) SpO2 97% BMI 27.34 kg/m Cultures: Blood cultures: [] None drawn [x] Negative Consults: 1. ENT Assessment: Patient Active Problem List Diagnosis Date Noted Brain mass 11/28/2021 Right middle cerebral artery stroke (HCC) 11/28/2021 Otitis media with effusion, left 11/28/2021 Additional assessment: R parietotemporal subacute infarct w/hemorrhagic conversion Mastoiditis Recommended Follow-up: Continue to hold APT Above mentioned assessment and plan was discussed by me with the admitting medicine resident. The medicine team assigned to the patient by medicine admitting resident will be following up the patient from now onwards on the floor. Guevara Kaur DO Neuro Critical Care 11/29/2021, 2:50 PM Speech Language Pathology Speech Language Pathology [facility] Dysphagia Treatment Note Date: 11/29/2021 Patient s Name: Shahrzad Edgar Diagnosis: dysphagia Patient Active Problem List Diagnosis Code Brain mass G93.89 Right middle cerebral artery stroke (HCC) I63.511 Otitis media with effusion, left H65.92 Pain: 0/10 Dysphagia Treatment Treatment time: 948-956 Subjective: [x] Alert [x] Cooperative [] Confused [] Agitated [] Lethargic Objective/Assessment: Pt. Seen for repeat BSSE. Pt. Provided with Soft Solids, Puree, Thin and [place] thick trials. Pt. With no overt s/s of aspiration noted with nectar, thin via cup, puree and soft solids indicating probable safe swallow for consistencies tested. Pt. With immediate cough noted with thin via straw. Patient presents with probable safe swallow for Dysphagia soft and bite/sized (Dysphagia III) diet with thin liquids via CUP ONLY - NO STRAWS as evidenced by no overt s/s of aspiration noted with consistencies tested. Recommend small sips and bites, only feed when alert and awake and upright at 90 degrees for all PO intake. Recommend close monitoring for overt/clinical s/s of aspiration and D/C PO intake and complete Modified Barium Swallow Study should they occur. Results and recommendations reported to RN. Plan: [x] Continue ST services [] Discharge from ST: Discharge recommendations: [] Further therapy recommended at discharge.The patient should be able to tolerate at least 3 hours of therapy per day over 5 days or 15 hours over 7 days. [x] Further therapy recommended at discharge. [] No therapy recommended at discharge. Treatment completed by: Ayla White LOADING SUPERVISOR, M.S. CCC-LOADING SUPERVISOR Speech Language Pathology Speech Language Pathology [facility] Cognitive and Speech Treatment Note Date: 11/29/2021 Patient s Name: Shahrzad Edgar Diagnosis: Patient Active Problem List Diagnosis Code Brain mass G93.89 Right middle cerebral artery stroke (HCC) I63.511 Otitis media with effusion, left H65.92 Pain: 0/10 Cognitive Treatment Treatment time: 957-1010 Subjective: [] Alert [x] Cooperative [] Confused [] Agitated [x] Lethargic Objective/Assessment: Recall: Delayed recall 0/3 increased to 3/3 with max verbal cues Immediate Memory for 5 Units: 7/9 increased to 8/9 with repetitions Organization: [employer] - [place]: 27/36 increased to 36/36 with min-mod verbal cues Problem Solving/Reasoning: Word deduction: 8/10 increased to 10/10 with mod verbal cues Multiple Definitions: 2/2 independently Speech: Pt. Seen for O/M treatment program for lingual weakness. Pt. Completed O/M exercises X 3 X 1 sets with max cues. Education provided re: compensatory strategies to increase speech intelligibility/clarity. Pt. Verbalized understanding. Exercise program left at bedside. Plan: [x] Continue ST services [] Discharge from ST: Discharge recommendations: [x] Further therapy recommended at discharge.The patient should be able to tolerate at least 3 hours of therapy per day over 5 days or 15 hours over 7 days. [] Further therapy recommended at discharge. [] No therapy recommended at discharge. Completed by: Sheri Serna Field Captain Clinician Cosigned By: Ayla White M.S.CCC/LOADING SUPERVISOR Images from the original note were not included. Physical Therapy Physical Therapy Cancel Note DATE: 11/29/2021 NAME: Shahrzad Edgar : 1945 Patient not seen this date for Physical Therapy due to: Other: Pt with OT, to CT, then speech. Ck pm as able Images from the original note were not included. Daily Progress Note Neuro Critical Care Patient Name: Shahrzad Edgar Patient : 1945 Room/Bed: [address] [place], [place] [id number] Code Status: Full Code Allergies: Allergies Allergen Reactions Coconut (Cocos Nucifera) Allergy Skin Test Anaphylaxis CHIEF COMPLAINT: Headache INTERVAL HISTORY Initial Presentation (Admitted 11/28): This is a 76 y.o. male with acute onset headache x1 day and noted to be hypertensive. Patient reportedly with only left arm pronator drift during evaluation at outside facility. CT scan at outlying facility did show concern for area of loss of schmitz/white matter differentiation thought to be infarction vs mass along right parietotemporal region. Hospital Course: 11/28: MRI showing right sided subacute infarct with hemorrhagic conversion Last 24h: Patient evaluated at bedside No acute events overnight IV abx changed to PO per ENT Passed swallow study however still concerned for possible aspiration risk CURRENT MEDICATIONS: SCHEDULED MEDICATIONS: atorvastatin 80 mg Oral Nightly amoxicillin-clavulanate 1 tablet Oral 2 times per day ofloxacin 10 drop Left Ear Daily insulin lispro 0-16 Units SubCUTAneous Q6H CONTINUOUS INFUSIONS: sodium chloride 75 mL/hr at 11/28/21 1010 dextrose PRN MEDICATIONS: acetaminophen, ondansetron OR ondansetron, glucose, dextrose bolus OR dextrose bolus, glucagon (rDNA), dextrose, sodium chloride flush, labetalol VITALS: Temperature Range: Temp: 98.6 F (37 C) Temp Av.3 F (36.8 C) Min: 97.8 F (36.6 C) Max: 98.6 F (37 C) BP Range: Systolic (24hrs), Av , Min:119 , Max:172 Diastolic (24hrs), Av, Min:60, Max:103 Pulse Range: Pulse Av.4 Min: 65 Max: 86 Respiration Range: Resp Av.1 Min: 7 Max: 23 Current Pulse Ox: SpO2: 96 % 24HR Pulse Ox Range: SpO2 Av.9 % Min: 88 % Max: 98 % Patient Vitals for the past 12 hrs: BP Temp Temp src Pulse Resp SpO2 11/29/21 0600 (!) 143/103 98.6 F (37 C) -- 73 19 96 % 11/29/21 0500 (!) 172/88 98.6 F (37 C) -- 76 19 95 % 11/29/21 0400 (!) 149/78 98.4 F (36.9 C) -- 69 18 96 % 11/29/21 0300 (!) 152/73 98.2 F (36.8 C) -- 70 15 96 % 11/29/21 0200 (!) 151/71 98.4 F (36.9 C) -- 73 18 91 % 11/29/21 0100 (!) 150/67 98.2 F (36.8 C) -- 65 19 92 % 11/29/21 0000 (!) 147/69 98.4 F (36.9 C) Oral 67 13 96 % 11/28/21 2300 (!) 156/73 98.6 F (37 C) -- 66 19 96 % 11/28/21 2200 (!) 150/70 98.4 F (36.9 C) -- 69 18 96 % 11/28/21 2100 (!) 152/73 98.2 F (36.8 C) Oral 68 19 96 % 11/28/21 2000 (!) 161/70 98 F (36.7 C) Oral 76 19 98 % 11/28/21 1915 (!) 146/74 -- -- 78 19 95 % 11/28/21 1900 (!) 163/77 -- -- 72 (!) 7 97 % RECENT LABS: Lab Results Component Value Date WBC 19.0 (H) 11/29/2021 HGB 13.6 11/29/2021 HCT 40.4 (L) 11/29/2021 PLT 250 11/29/2021 CHOL 122 11/28/2021 TRIG 71 11/28/2021 HDL 34 (L) 11/28/2021 NA 131 (L) 11/28/2021 K 4.2 11/28/2021 CL 95 (L) 11/28/2021 CREATININE 0.94 11/28/2021 BUN 10 11/28/2021 CO2 21 11/28/2021 LABA1C 8.1 (H) 11/28/2021 24 HOUR INTAKE/OUTPUT: Intake/Output Summary (Last 24 hours) at 11/29/2021 0648 Last data filed at 11/29/2021 0600 Gross per 24 hour Intake 975.5 ml Output 2105 ml Net -1129.5 ml Labs and Images reviewed with: [] Dr. Vicki See [x] Dr. Neal Velázquez [] Dr. Jovany Macias [] There are no new interval images to review. PHYSICAL EXAM CONSTITUTIONAL: Well developed, well nourished, alert and oriented x 3, in no acute distress. GCS 15. Nontoxic. No dysarthria. No aphasia. HEAD: normocephalic, atraumatic EYES: PERRLA, EOMI. Visual Acuity and Peripheral vision in tact b/l ENT: moist mucous membranes NECK: supple, symmetric LUNGS: Equal air entry bilaterally CARDIOVASCULAR: normal s1 / s2, RRR, distal pulses intact ABDOMEN: Soft, no rigidity NEUROLOGIC: Mental Status: A & O x3,awake Cranial Nerves: II: Visual acuity: normal II: Visual blunt: abnormal - L field defect III: Pupils: equal, round, reactive to light III,IV,: Extra Ocular Movements: intact V: Facial sensation: abnormal L VII: Facial strength: intact VIII: Hearing: intact IX: Palate: intact XI: Shoulder shrug: intact XII: Tongue movement: normal Motor Exam: Drift: present - LUE Tone: normal MOTOR: RUE: 5/5 LUE: 3/5 RLE: 5/5 LLE: 2/5 Sensory: Touch: Right Upper Extremity: normal Left Upper Extremity: abnormal - unable to sense Right Lower Extremity: normal Left Lower Extremity: abnormal - unable to sense Deep Tendon Reflexes: Right Bicep: 2+ Left Bicep: 2+ Right Knee: 2+ Left Knee: 2+ Plantar Response: Right: downgoing Left: downgoing Clonus: absent Coordination/Dysmetria: Heel to Palacio: Right: normal Finger to Nose: Right: normal DRAINS: [x] There are no drains for Neuro Critical Care to monitor at this time. ASSESSMENT AND PLAN: This is a 76 y.o. male with acute onset headache x1 day and noted to be hypertensive. Patient reportedly with only left arm pronator drift during evaluation at outside facility. CT scan at outlying facility did show concern for area of loss of schmitz/white matter differentiation thought to be infarction vs mass along right parietotemporal region. MRI here showing subacute ischemia R parietal/temporal lobe w/hemorraghic conversion NEUROLOGIC: - MRI subacute ischemia R parietal/temporal lobe w/hemorraghic conversion - Repeat CTH today 0900 - AEDs: start Keppra 500mg BID - Goal SBP <140 CARDIOVASCULAR: - SBP 142 - 172 - Goal SBP <140 - Labetalol prn PULMONARY: -Spo2>92% 3L NC RENAL/FLUID/ELECTROLYTE: - Na 133 K 4.4 - BUN 14 Cr 0.89 GI/NUTRITION: - Passed swallow study yesterday. Repeat today - NPO. Regular diet if able to pass swallow study - Bowel regimen: Zofran PRN - GI prophylaxis: home pepcid ID: - Tmax 37 - WBC 19 (13.5). Leukocytosis likely secondary to steroids - Purulent drainage noted in left ear canal, CT suspicious for mastoiditis given loss of air cells - ENT - Augmentin for PO 7 days. Ofloxacin drops HEME: - Hgb 13.6 - Plt 250 - Restart eliquis if CTH stable - Continue to hold AP therapy ENDOCRINE: - Continue to monitor blood glucose, goal <180 - insulin sliding scale OTHER: - PT/OT/ST - Code Status: Full Code PROPHYLAXIS: Stress ulcer: home pepcid DVT PROPHYLAXIS: - SCD sleeves DISPOSITION: [x] Neuro SD if repeat CTH stable We will continue to follow along. For any changes in exam or patient status please contact Neuro Critical Care. Guevara Kaur DO Neuro Critical Care Pager [phone] 11/29/2021 6:48 AM Associated attestation - Neal Vleázquez MD - 11/29/2021 10:14 AM EDT I reviewed the resident s note and agree with the documented findings and plan of care. Any areas of disagreement are noted on the chart. I agree with the chief complaint, past medical history, past surgical history, allergies, medications, social and family history as documented unless otherwise noted below. I have personally seen and evaluated the patient and images. I find the patient's history and physical exam are consistent with the Resident documentation. I agree with the care provided, treatment rendered, disposition and follow-up plan. HPI: Recurrent headache with mild left upper extremity weakness. Neurological examination: Alert and oriented to person and hospital. 5/5 on the right. 3/5 on the left. MRI appears to be consistent with a subacute infarct with hemorrhagic transformation. Statin for secondary stroke prevention. Patient has history of atrial fibrillation and was on Eliquis in the past. However, it was stopped due to anemia and a GI bleed. Repeat head CT this morning shows no acute processes. Start DVT prophylaxis. Maintain SBP < 160. Incentive spirometry. LOADING SUPERVISOR eval. PT/OT. Insulin sliding scale. Stepdown. Discharge planning. 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 Date of Eval: 11/28/2021 Evaluating Therapist: ROBBY Hall Current Diet level: Current Diet : NPO Primary Complaint: The patient is a 76 y.o. male with hx of DM, CAD on baby aspirin and former smoker, who presented with right sided temporal headache and dizziness which started earlier today (unable to state exact time). He was initially evaluated at [facility]. 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 No improvement with Excedrin. Patient denies any other blood thinners aside from aspirin[facility] noted to have clear speech, no facial droop and with sensation and strength intact in all extremities. He was noted to have left hand shaking, with positive left pronator drift. BP 176/96 and he was given two doses of 10mg labetalol and 10mg of Hydralazine. EST elevated at 42 and leukocytosis at 12.6. he was noted to have piece of cotton in his left ear for some drainage and when removed, did have purulent material. CT head from [facility] showed area of hypoattenuation in right parietotemporal region with right sided sulcal effacement and loss of mitchell white differentiation concerning for an acute infarct. There is a trace hemorrhage noted within the anterior right temporal lobe measuring 4.5 x7.8mm. Mild effacement of the right lateral ventricles visualized, no evidence for obstructive hydrcephalus. Minimal leftward 4mm midline shift with no evidence for herniation. Also noted to have complete opacification of the left mastoid air cells. Dr. Velázquez recommended 10mg IVV Decadron and 500mg IV keppra prior to transfer to Neuro ICU at [place]. Pain: Pain Assessment Pain Assessment: 0-10 Pain Level: 7 Pain Location: Head Pain Descriptors: Aching Reason for Referral Shahrzad Edgar was referred for a bedside swallow evaluation to assess the efficiency of his swallow function, identify signs and symptoms of aspiration and make recommendations regarding safe dietary consistencies, effective compensatory strategies, and safe eating environment. Impression: Pt. Required cues to remain awake and alert for PO trials at this time. Pt. With no overt s/s of aspiration with Puree trials. + cough noted with cup sip of nectar trials. Recommend Puree with meds until repeat BSSE can be completed Dysphagia Outcome Severity Scale: Level 2: Moderate Severe dysphagia- Maximum assistance or maximum use of strategies with partial PO only Treatment Plan Requires LOADING SUPERVISOR Intervention: Yes D/C Recommendations: Ongoing speech therapy is recommended during this hospitalization;Ongoing speech therapy is recommended at next level of care Recommended Diet and Intervention Solids: Puree with meds Liquids: NPO Recommended Form of Meds: Meds in puree Recommendations: Modified barium swallow study 3-5X/week Treatment/Goals Will re-assess at bedside 11/29/21 General Chart Reviewed: Yes Behavior/Cognition: Alert;Cooperative Respiratory Status: Room air Communication Observation: Functional Follows Directions: Simple Vision/Hearing Vision Vision: Impaired Hearing Hearing: Exceptions to WFL Oral Phase Dysfunction Oral Phase Oral Phase: Exceptions: Decreased oral acceptance due to decreased alert levels Indicators of Pharyngeal Phase Dysfunction: Impaired No overt s/s of aspiration with Puree trials. + cough noted with nectar thick liquid trials. 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 Date of Eval: 11/28/2021 Evaluating Therapist: Sheri Serna RECENT RESULTS CT OF HEAD/MRI: Subacute ischemia involving the right parietal/temporal lobe with associated hemorrhagic/hemosiderin staining. There is mild associated edema, mass effect, and minimal leftward midline shift. Primary Complaint: The patient is a 76 y.o. male with hx of DM, CAD on baby aspirin and former smoker, who presented with right sided temporal headache and dizziness which started earlier today (unable to state exact time). He was initially evaluated at [facility]. 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 No improvement with Excedrin. Patient denies any other blood thinners aside from aspirin. At outlying facility patient noted to have clear speech, no facial droop and with sensation and strength intact in all extremities. He was noted to have left hand shaking, with positive left pronator drift. BP 176/96 and he was given two doses of 10mg labetalol and 10mg of Hydralazine. EST elevated at 42 and leukocytosis at 12.6. he was noted to have piece of cotton in his left ear for some drainage and when removed, did have purulent [facility] area of hypoattenuation in right parietotemporal region with right sided sulcal effacement and loss of mitchell white differentiation concerning for an acute infarct. There is a trace hemorrhage noted within the anterior right temporal lobe measuring 4.5 x7.8mm. Mild effacement of the right lateral ventricles visualized, no evidence for obstructive hydrcephalus. Minimal leftward 4mm midline shift with no evidence for herniation. Also noted to have complete opacification of the left mastoid air cells. Dr. Velázquez recommended 10mg IVV Decadron and 500mg IV keppra prior to transfer to Neuro ICU at [place]. Pain: Pain Assessment Pain Assessment: 0-10 Pain Level: 7 Pain Location: Head Pain Descriptors: Aching Vision/ Hearing Vision Vision: Within Functional Limits Hearing Hearing: Within functional limits Assessment: Pt presents with moderate cognitive deficits characterized by difficulties with immediate recall, inductive reasoning, thought flexibility, delayed recall, and word deductions. Pt. Presents with no dysarthria, decreased lingual range of motion (to the left side) O/M deficits at this time. ST to follow up and provide treatment to address noted deficits. Education provided. Recommendations: Recommendations Requires LOADING SUPERVISOR Intervention: Yes Patient Education: yes Patient Education Response: Verbalizes understanding Plan: Speech Therapy Prognosis Prognosis: Good Individuals consulted Consulted and agree with results and recommendations: Patient Goals: Short-term Goals Goal 1: Pt. will complete abstract/deductive reasoning tasks with 90% accuracy. Goal 2: Pt. will recall 3-5 units with and without distractions with 90% accuracy. Goal 3: Pt. Will complete OMEX for lingual weakness 10-20 x per session. Patient/family involved in developing goals and treatment plan: yes Subjective: Social/Functional History Lives With: Friend(s) Type of Home: Apartment Active Contract Designer: Yes Vision Vision: Within Functional Limits Hearing Hearing: Within functional limits Objective: Oral Motor Labial: No impairment Lingual: Decreased strength (Left ROM) Motor Speech Apraxic Characteristics: None Dysarthric Characteristics: Decreased breath support;Other (comment);Blended word boundaries (harsh vocal quality) Cognition: Orientation Overall Orientation Status: Within Normal Limits Attention Attention: Within Functional Limits Memory Memory: Exceptions to WFL Short-term Memory: Moderate (0/3, 2/3) Immediate Memory: Mild (4/5) Problem Solving Problem Solving: Exceptions to WFL Verbal Reasoning Skills: Moderate (Inductive reasonin/4 Word deductions: 3/4) Abstract Reasoning Abstract Reasoning: Exceptions to WFL Convergent Thinking: WFL Divergent Thinking: Severe (4 animals in 30 seconds) Safety/Judgment Safety/Judgment: Exceptions to WFL Insight: WFL Flexibility of Thought: Moderate (1/3) Prognosis: Speech Therapy Prognosis Prognosis: Good Individuals consulted Consulted and agree with results and recommendations: Patient Education: Patient Education: yes Patient Education Response: Verbalizes understanding Therapy Time: Individual Concurrent Group Co-treatment Time In 1046 Time Out 1058 Minutes 12 Completed by: Sheri Serna Field Captain Clinician Cosigned By: Ayla White M.S.CCC/LOADING SUPERVISOR [facility] Pharmacokinetic Monitoring Service - Vancomycin Shahrzad Edgar is a 76 y.o. male starting on vancomycin therapy for suspected mastoiditis. Pharmacy consulted by Dr. Neal Velázquez for monitoring and adjustment. Target Concentration: Goal AUC/ALEXANDRA 400-600 mg*hr/L Additional Antimicrobials: Ceftriaxone Pertinent Laboratory Values: Wt Readings from Last 1 Encounters: 11/28/21 207 lb 3.7 oz (94 kg) Temp Readings from Last 1 Encounters: 11/28/21 98.8 F (37.1 C) (Oral) Estimated Creatinine Clearance: 77 mL/min (based on SCr of 0.94 mg/dL). Recent Labs 11/28/21 0359 CREATININE 0.94 WBC 13.5* Procalcitonin: N/a Pertinent Cultures: Culture Date Source Results MRSA Nasal Swab: N/A. Non-respiratory infection. Plan: Dosing recommendations based on Bayesian software Start vancomycin 1750mg IVPB x 1 dose followed by 1500mg IVPB every 18 hours. Anticipated AUC of 519 and trough concentration of 15.6 at steady state Renal labs as indicated Vancomycin concentration not ordered. Pharmacy will continue to monitor patient and adjust therapy as indicated Thank you for the consult, Raymundo Dallas RPH 11/28/2021 6:35 AM documented in this encounter [email or web address] [email or web address] Phone: 12-02-2021 Hospital Discharge instructions Yair Schofield RN - 12/02/2021 2:45 PM EDT Continuity of Care Form Patient Name: Shahrzad Edgar : 1945 Admit date: 11/28/2021 Discharge date: 12/03/2021 Code Status Order: Full Code Advance Directives: Admitting Physician: Allan Pemberton DO PCP: No primary care provider on file. Discharging Nurse: yair Discharging Hospital Unit/Room#: 0122/0122-01 Discharging Unit Phone Number: [phone] Emergency Contact: Extended Emergency Contact Information Primary Emergency Contact: nadine allen Relation: Other Preferred language: Samoan Cook Pie needed? No Past Surgical History: No past surgical history on file. Immunization History: Immunization History Administered Date(s) Administered COVID-19, PFIZER PURPLE top, DILUTE for use, (age 12 y+), 30mcg/0.3mL 05/21/2020, 06/12/2020, 01/15/2021 Active Problems: Patient Active Problem List Diagnosis Code Cerebrovascular accident (CVA) ([facility]) I63.9 Otitis media with effusion, left H65.92 History of atrial fibrillation Z86.79 Anemia D64.9 Isolation/Infection: Isolation No Isolation Patient Infection Status None to display Nurse Assessment: Last Vital Signs: BP 113/72 Pulse 89 Temp 98.8 F (37.1 C) (Oral) Resp 18 Ht 6' 1 (1.854 m) Wt 207 lb 3.7 oz (94 kg) SpO2 99% BMI 27.34 kg/m Last documented pain score (0-10 scale): Pain Level: 3 Last Weight: Wt Readings from Last 1 Encounters: 11/28/21 207 lb 3.7 oz (94 kg) Mental Status: oriented and logical IV Access: - None Nursing Mobility/ADLs: Walking Assisted Transfer Assisted Bathing Assisted Dressing Assisted Toileting Independent Feeding Independent Peer Financial Counselor Independent Med Delivery whole Wound Care Documentation and Therapy: Elimination: Continence: Bowel: Yes Bladder: Yes Urinary Catheter: None Colostomy/Ileostomy/Ileal Conduit: No Date of Last BM: Intake/Output Summary (Last 24 hours) at 12/02/2021 1444 Last data filed at 12/02/2021 0400 Gross per 24 hour Intake -- Output 1225 ml Net -1225 ml I/O last 3 completed shifts: In: - Out: 2575 [Urine:2575] Safety Concerns: None Impairments/Disabilities: None Nutrition Therapy: Current Nutrition Therapy: Dysphagia soft Routes of Feeding: Oral Liquids: [place] Thick Liquids Daily Fluid Restriction: 1500 Last Modified Barium Swallow with Video (Video Swallowing Test): n/a Treatments at the Time of Hospital Discharge: Respiratory Treatments: Oxygen Therapy: is not on home oxygen therapy. Ventilator: - No ventilator support Rehab Therapies: Physical Therapy, Occupational Therapy, and Speech/Language Therapy Weight Bearing Status/Restrictions: No weight bearing restrictions Other Medical Equipment (for information only, NOT a DME order): walker Other Treatments: Patient's personal belongings (please select all that are sent with patient): None RN SIGNATURE: CASE MANAGEMENT/SOCIAL WORK SECTION Inpatient Status Date: 11/28/21 Readmission Risk Assessment Score: Readmission Risk Risk of Unplanned Readmission: 13 Discharging to Facility/ Agency [facility]: [facility] Address: Phone: Fax: Dialysis Facility (if applicable) Name: Address: Dialysis Schedule: Phone: Fax: Wash Rack Operator/Grocery Stocker signature: PHYSICIAN SECTION Prognosis: {Prognosis:5194214911} Condition at Discharge: { Patient Condition:654743704} Rehab Potential (if transferring to Rehab): {Prognosis:2823959156} Recommended Labs or Other Treatments After Discharge: Physician Certification: I certify the above information and transfer of Shahrzad Edgar is necessary for the continuing treatment of the diagnosis listed and that he requires {Admit to Appropriate Level of Care:53579} for {GREATER/LESS:601158382} 30 days. Update Admission H&P: {CHP DME Changes in HandP:622973955} PHYSICIAN SIGNATURE: The following attachments cannot be sent through Care Everywhere.[place]ins (Samoan)Ischemic Stroke: General Info (Samoan)Stroke: Symptoms: General Info (Samoan)Diabetes: Heart Attack and Stroke Risk: General Info (Samoan)documented in this encounter [facility] Work Phone: 09-17-2021 Evaluation note Encounter Date Diagnosis Assessment Notes Aug, Left hand pain (ICD-10 - M79.642) Aug, Closed displaced fracture of proximal phalanx of left little finger with routine healing, subsequent encounter (ICD-10 - S62.617D) Radiographs reviewed with patient today. Discussed with patient to work on range of motion exercises [facility] #2 Other 06-09-2022 Evaluation note* Encounter Date Diagnosis Assessment Notes Treatment Notes Treatment Clinical Notes Aug, Left hand pain (ICD-10 - M79.642) Aug, Closed displaced fracture of proximal phalanx of left little finger, initial encounter (ICD-10 - S62.617A) Extensive discussion about current condition and treatment options available. Patient has sustained a 5th finger fracture. This is stable and we will treat nonoperatively at this time. Patient instructed on leanne taping to the ring finger and gentle ROM exercises. Patient also instructed on the use of splint as needed and instructed to limit strenuous weight bearing on the affected hand. Discussed this can take at least 6 weeks to heal. Instructed on gentle motion of the fingers. Advised patient ice and elevate to decrease pain and swelling. [facility] #2 Other 06-06-2022 NotePROCEDURE: XR HAND LT MIN 3V COMPARISON: None. HISTORY: Pain FINDINGS: BONES:Subtle contour deformity identified at the base of the fifth proximal phalanx. No dislocation. Mild degenerative changes. SOFT TISSUES:Negative. No visible soft tissue swelling. EFFUSION:None visible. OTHER: Negative. IMPRESSION: Suspected nondisplaced fracture base of the fifth proximal phalanx Electronically authenticated by: REINA GO Date: 2021-08-26 10:45[facility] Diagnosis Cerebrovascular accident (CVA), unspecified mechanism (HCC) Hyponatremia Hyposmolality and/or hyponatremia Otitis media with effusion, left PAF (paroxysmal atrial fibrillation) (HCC) Atrial fibrillation Anemia Anemia, unspecified Atrial fibrillation with RVR (HCC) Atrial fibrillation Type 2 diabetes mellitus without complication, without long-term current use of insulin (HCC) Primary hypertension Unspecified essential hypertension COPD (chronic obstructive pulmonary disease) (HCC) Chronic airway obstruction, not elsewhere classified Hemorrhagic stroke ([facility]) Intracerebral hemorrhage documented in this encounter [facility] Work Phone: evaluation noteNo assessment information available [facility] Work Phone: Evaluation note* Diagnosis Single vessel coronary disease- Primary Essential hypertension Unspecified essential hypertension Mixed hyperlipidemia Persistent atrial fibrillation (CMS/HCC) Atrial fibrillation Anemia, unspecified type BMI 28.0-28.9,adult documented in this encounter [facility] Work Phone: Evaluation note* Diagnosis High risk medication use- Primary Single vessel coronary disease Essential hypertension Unspecified essential hypertension Mixed hyperlipidemia Persistent atrial fibrillation (Multi) Atrial fibrillation BMI 28.0-28.9,adult Cerebrovascular accident (CVA), unspecified mechanism (Multi) Anemia, unspecified type Former smoker Personal history of tobacco use, presenting hazards to health documented in this encounter [facility] Work Phone: Evaluation note* Diagnosis Xerosis cutis- Primary Other specified disease of sebaceous glands Onychomycosis Dermatophytosis of nail Pain due to onychomycosis of toenails of both feet Right foot drop Other acquired deformity of ankle and foot documented in this encounter [facility] HealthcareEvaluation note* Diagnosis Persistent atrial fibrillation (Multi)- Primary Atrial fibrillation Single vessel coronary disease Mixed hyperlipidemia Essential hypertension Unspecified essential hypertension Anemia, unspecified type Cerebrovascular accident (CVA), unspecified mechanism (Multi) High risk medication use Former smoker Personal history of tobacco use, presenting hazards to health BMI 27.0-27.9,adult documented in this encounter 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 (CMS/HCC) Pain due to onychomycosis of toenails of both feet Right foot drop Other acquired deformity of ankle and foot documented in this encounter [facility] Narrative - Reported* Type Description Date Medical History AK Medical History DM Medical History HTN Surgical History cholecystectomy Surgical History back surgery Surgical History elbow surgery Surgical History cataracts, bilaterally Surgical History T & A Hospitalization History see above Hospitalization History [place] -2019 [facility]2 Other History of Present illness Narrative* Is here for follow-up continue management for coronary artery disease with prior PCI, atrial fibrillation, obesity, hypertension and hyperlipidemia. Since last time I saw him he reports his been feeling well. He denies any complaint of chest pain, palpitation, lightheadedness, dizziness or syncope.He remains fairly active. He denies any change in cardiac status or symptoms. * Assessment * 1. Status post prior presentation with inferior wall myocardial infarction. Status post thrombectomy and balloon angioplasty to a small PLV branch. back in 2019. Patient describe functional class I * 2. Persistent atrial fibrillation maintained in normal sinus rhythm/sinus bradycardia. Started on sotalol recently. QTc atenolol is acceptable. Currently on only aspirin. His Eliquis was discontinuedrpreviously due to severe anemia * 3. High-risk medication in form of sotalol tolerating that well * 4. Obesity with another weight gain * 5. Hypertension controlled * 6. Hyperlipidemia on atorvastatin * 7. Anemia etiology unclear currently being followed by hematology * 8. Reformed smoker * 9. Mild sinus bradycardia completely asymptomatic heart rate 60 today * Plan * 1. Patient was advised to continue present medical therapy. We discussed anticoagulation the patient elected to remain on aspirin. He understand the risk and benefit. We discussed watchman device butthe patient elected to defer for now * 2. He was counseled regarding losing weight, exercise and dietary modification * 3. Reported that he has not been smoking * 4. We'll see him back in the office in next 6 month * 5. Patient advised to repeat lab work as ordered -[facility] DO Work Phone: History of Present illness Narrative* Patient is here for follow-up continue management for prior history of coronary artery disease, myocardial infarction, PCI to the distal right coronary artery, persistent atrial fibrillation maintaining normal sinus rhythm, obesity, hypertension and hyperlipidemia. Since last time I saw him he was admitted to the hospital on 1 occasion with atypical chest pain. It felt to be GI based on my reviewof his record. His CT scan noted and reviewed with him. His laboratory also noted and reviewed withhim. Since his discharge from the hospital he denies any complaint. Today blood pressure seem to besuboptimally controlled. Improved after I saw him * Assessment * 1. Status post prior presentation with inferior wall myocardial infarction. Status post thrombectomy and balloon angioplasty to a small PLV branch. back in 2019. Patient describe functional class I. He had recent hospital admission for atypical chest pain work-up was benign cardiac balderas * 2. Persistent atrial fibrillation maintained in normal sinus rhythm/sinus bradycardia. Started on sotalol recently. QTc atenolol is acceptable. Currently on only aspirin. His Eliquis was discontinuedrpreviously due to severe anemia * 3. High-risk medication in form of sotalol tolerating that well * 4. Obesity with another weight gain * 5. Hypertension to be running a little bit on the high range * 6. Hyperlipidemia on atorvastatin seem to be controlled based on recent lab * 7. Anemia etiology unclear currently being followed by hematology * 8. Reformed smoker * 9. Mild sinus bradycardia completely asymptomatic heart rate 60 today * Plan * 1. Patient was advised to continue present medical therapy. Except increasing his lisinopril to 5 mg to optimize blood pressure control. We discussed anticoagulation the patient elected to remain on aspirin. He understand the risk and benefit. We discussed watchman device but the patient elected todefer for now * 2. He was counseled regarding losing weight, exercise and dietary modification * 3. Reported that he has not been smoking 3 years * 4. We'll see him back in the office in next 6 month will have a blood pressure in 6 to 8 weeks * 5. Reviewed his recent lab with him -[facility] DO Work Phone: History of Present illness Narrative* Patient is here for follow-up and continue management for history of inferior wall myocardial infarction and PCI to the PLV branch, persistent atrial fibrillation, obesity, hypertension and hyperlipidemia. Unfortunately he did not tolerate Eliquis and this was discontinued. Patient did not bring his medication with him. He reports he was in the hospital in [place] in [place] after a stroke. Hedoes not know if any of his medication has been changed. On examination he is in atrial fibrillation with slightly elevated heart rate. Unfortunately we could not confirm his medication. Unfortunately he does not remember what happened and he cannot give me any detail. * Assessment * 1. Status post prior presentation with inferior wall myocardial infarction. Status post thrombectomy and balloon angioplasty to a small PLV branch. back in 2019. Patient describe functional class I. He had previous hospital admission for atypical chest pain work-up was benign cardiac balderas * 2. Persistent atrial fibrillation appears now back in A-fib with RVR. He had a history of intolerance to Eliquis due to GI bleed. He was recently in the hospital for stroke detail is lacking unclear if any of the medication has been changed * 3. High-risk medication in form of sotalol this seems to ineffective at current dose to maintain sinus rhythm ll * 4. Obesity with another weight gain * 5. Hypertension * 6. Hyperlipidemia * 7. Anemia was seen by hematology in the past * 8. Reformed smoker * 9. Stroke detail is lacking * Plan * 1. Clinically we cannot adjust any of his medication considering we do not have an accurate list ofhis medication and were missing some clinical data from his recent hospitalization. Clearly the patient is very high risk for recurrent stroke unless anticoagulation and/or a Watchman device is consid ered. The patient adamant about not being on anticoagulation * 2. He was counseled regarding losing weight, exercise and dietary modification * 3. Current was advised to come back to the office tomorrow bring his medication to give him appropriate recommendation to address his elevated heart rate, atrial fibrillation and risk of embolic event * 4. I to retrieve his record from [place] * 5. I advised the patient TO bring his medication with him and tried to write things down concerninghis memory does not appears to be good and he has no good social support system [facility] DO Work Phone: Summary Purpose Family History No Family History Records FoundUnknown Family Member Name Dates Details No pertinent family history: Mother, Father(V49.89, Z78.9) Status:Active Unknown Family Member Name Dates Details No pertinent family history: Mother, Father(V49.89, Z78.9) Status:Active Unknown Family Member Name Dates Details No pertinent family history: Mother, Father(V49.89, Z78.9) Status:Active Unknown Family Member Name Dates Details No pertinent family history: Mother, Father(V49.89, Z78.9) Status:Active Unknown Family Member Name Dates Details No pertinent family history: Mother, Father(V49.89, Z78.9) Status:Active Unknown Family Member Name Dates Details No pertinent family history: Mother, Father(V49.89, Z78.9) Status:Active Unknown Family Member Name Dates Details No pertinent family history: Mother, Father(V49.89, Z78.9) Status:Active Unknown Family Member Name Dates Details No pertinent family history: Mother, Father(V49.89, Z78.9) Status:Active Relationship Condition Age at Onset Recorded Date/T melissa Not Specified Hypertension Unknown Advance Directives No Advanced Directives Records FoundLatest Code Status on File Code Status Date Activated Date Inactivated Comments Full Code 11/28/2021 3:26 AM Chief Complaint SHAHRZAD EDGAR is being seen for a 6 month follow-up of.SHAHRZAD EDGAR is being seen for a 6 month follow-up of.SHAHRZAD EDGAR is being seen for OV Per MT. Reason for Referral Specialty Diagnoses / Procedures Referred By Julio C t Referred To Contact Diagnoses Persistent atrial fibrillation (CMS/HCC) Procedures ECG 12 Lead Veronica Liz MD [address] [facility], [address] [address] Referral ID Status Reason Start Date Expiration Date V isits Requested Visits Authorized [id number] Pending Review 01/29/2023 01/29/2024 1 1 Specialty Diagnoses / Procedures Referred By Julio C t Referred To Contact Cardiology Diagnoses Single vessel coronary disease Essential hypertension Procedures Follow Up In Cardiology Veronica Liz MD [address] [facility], [address] [address] Veronica Liz MD [address] [facility] [address], [address] [address] Referral ID Status Reason Start Date Expiration Date V isits Requested Visits Authorized [id number] Authorized 01/29/2023 01/29/2024 1 1 Specialty Diagnoses / Procedures Referred By Contac t Referred To Contact Radiology Diagnoses Cerebrovascular accident (CVA), unspecified mechanism (HCC) Procedures CT HEAD WO CONTRAST Alexander Grey, RESIDUE FURNACE OPERATOR - COARSE WIRE DRAWER [address] [facility] [address] [place] [address] Referral ID Status Reason Start Date Expiration Date Visits Re quested Visits Authorized [id number] Open 12/19/2021 12/19/2022 1 1 Additional Source Comments (unrecognized sect ion and content) No Status Records FoundNo Status Records FoundNo Status Records FoundNo Status Records FoundNo Status Records FoundNo Status Records FoundNo Status Records FoundNo Status Records Found INFORMATION SOURCE (unrecogn ized section and content) DATE CREATED AUTHOR 06/11/2018 [facility] DATE CREATED AUTHOR AUTHOR'S ORGANIZ ATION 12/17/2021 [facility] DATE CREATED AUTHOR AUTHOR'S ORGANIZ ATION 05/18/2022 [facility] DATE CREATED AUTHOR AUTHOR'S ORGANIZ ATION 06/06/2022 [facility] DATE CREATED AUTHOR AUTHOR'S ORGANIZ ATION 08/07/2022 [facility] DATE CREATED AUTHOR AUTHOR'S ORGANIZ ATION 11/22/2022 [facility] DATE CREATED AUTHOR AUTHOR'S ORGANIZ ATION 01/30/2024 [facility] DATE CREATED AUTHOR AUTHOR'S ORGANIZ ATION 03/18/2024 [facility] dical Specialists EPIC REASON FOR VISIT (unrecogniz ed section and content) Reason Comments Follow-up 6 month Specialty Diagnoses / Procedures Referred By Contac t Referred To Contact Diagnoses Persistent atrial fibrillation (CMS/HCC) Procedures ECG 12 Lead Veronica Liz MD [address] [facility], [address] [place] [address] Referral ID Status Reason Start Date Expiration Date V isits Requested Visits Authorized [id number] Pending Review 01/29/2023 01/29/2024 1 1 Reason Comments Follow-up 6 months Specialty Diagnoses / Procedures Referred By Contac t Referred To Contact Cardiology Diagnoses Single vessel coronary disease Essential hypertension Procedures Follow Up In Cardiology Veronica Liz MD [address] [facility], [address] [address] Veronica Liz MD [address] [place] [id number] Referral ID Status Reason Start Date Expiration Date V isits Requested Visits Authorized [id number] Authorized 01/29/2023 01/29/2024 1 1 Reason Comments Toenail Care Non DM Nails Specialty Diagnoses / Procedures Referred By Contac t Referred To Contact Cardiology Diagnoses Persistent atrial fibrillation (Multi) Procedures Follow Up In Cardiology Veronica Liz MD [address] [place] [address], [address] [address] Phone: tel: fax: Veronica Liz MD [address] [place] [address] Phone: tel: fax: Referral ID Status Reason Start Date Expiration Date V isits Requested Visits Authorized [id number] Authorized 07/30/2023 07/29/2024 1 1 Reason Comments Toenail Care Non dm nail care Ordered Prescriptions (unrec ognized section and content) Prescription Sig Dispensed Refills Start Date End Da te cefdinir (OMNICEF) 300 MG capsule Take 1 capsule by mouth every 12 hours for 8 doses 8 capsule 0 12/03/2021 12/07/2021 amiodarone (CORDARONE) 200 MG tablet Take 1 tablet by mouth daily 90 tablet 0 12/08/2021 03/08/2022 amiodarone (CORDARONE) 200 MG tablet Take 1 tablet by mouth 2 times daily for 9 doses 9 tablet 0 12/03/2021 12/08/2021 tamsulosin (FLOMAX) 0.4 MG capsule Take 1 capsule by mouth daily 30 capsule 3 12/03/2021 metoprolol tartrate (LOPRESSOR) 25 MG tablet Take 1 tablet by mouth 2 times daily 60 tablet 3 12/03/2021 lisinopril (PRINIVIL;ZESTRIL) 10 MG tablet Take 1 tablet by mouth daily 30 tablet 3 12/03/2021 Scheduled Active and Recently Administ ered Medications (unrecognized section and content) Medication Order 12/02/2021 12/03/2021 12/04/2021 amiodarone (CORDARONE) 150 mg in dextrose 5 % 100 mL bolus (COMPLETED) 150 mg, IntraVENous, at 600 mL/hr, Administer over 10 Minutes, ONCE, On Thu12/02/21 at 1200, For 1 dose, Use in-line filter. 1151 (New Bag - Provider: Huang Gurrola RN)1201 (Stopped - Provider: Huang Gurrola RN) amiodarone (CORDARONE) tablet 200 mg(Linked Group 1) 200 mg, Oral, 2 TIMES DAILY, 10 doses, First dose on Thu12/03/21 at 1100, Last dose on 12/07/21 at 2100 1123 (Given - Provider: Little Treadwell RN)2253 (Given - Provider: Jono Serrano RN) 0847 (Given - Provider: Yair Schofield RN)2099 (Due) amiodarone (CORDARONE) tablet 200 mg(Linked Group 1) 200 mg, Oral, DAILY, First dose on Thu12/08/21 at 0900, Until Discontinued amoxicillin-clavulanate (AUGMENTIN) 875-125 MG per tablet 1 tablet (CANCELED) 1 tablet, Oral, EVERY 12 HOURS SCHEDULED (2 times per day), 14 doses, First dose on Kimmie 11/28/21 at 2100, Last dose on Kimmie 12/05/21 at 0900, Antimicrobial Indications: Other, Other Abx Indication: Left ear infection/possible mastoiditis 935 (Given - Provider: Huang Gurrola RN) atorvastatin (LIPITOR) tablet 80 mg 80 mg, Oral, NIGHTLY, First dose on Kimmie 11/28/21 at 2100, Until Discontinued 2053 (Given - Provider: Jono Serrano RN) 2020 (Given - Provider: Jono Serrano RN) 2099 (Due) cefdinir (OMNICEF) capsule 300 mg 300 mg, Oral, EVERY 12 HOURS SCHEDULED (2 times per day), 10 doses, First dose on Thu12/02/21 at 2100, Last dose on 12/07/21 at 0900, Antimicrobial Indications: Head and Neck Infection 2053 (Given - Provider: Jono Serrano RN) 0848 (Given - Provider: Little Treadwell RN)2020 (Given - Provider: Jono Serrano RN) 0847 (Given - Provider: Yair Schofield RN)2099 (Due) enoxaparin Sodium (LOVENOX) injection 30 mg 30 mg, SubCUTAneous, 2 TIMES DAILY, First dose on Thu11/29/21 at 1030, Until Discontinued, Indication of Use: Prophylaxis-DVT/PE 42 (Given - Provider: Huang Gurrola RN)2053 (Given - Provider: Jono Serrano RN) 0847 (Given - Provider: Little Treadwell RN)2020 (Given - Provider: Jono Serrano RN) 0846 (Given - Provider: Yair Schofield RN)2099 (Due) insulin lispro (HUMALOG) injection vial 0-16 Units 0-16 Units, SubCUTAneous, 4 TIMES DAILY BEFORE MEALS & NIGHTLY, First dose (after last modification) on Thu12/01/21 at 1700, Until Discontinued, High Dose Corrective Algorithm Glucose: Dose: 70-199 No Insulin 200-249 4 Units 250-299 8 Units 300-349 12 Units Over 349 16 Units and notify physician 0911 (Not Given - Provider: Eugenie Lynn RN - Reason: Order parameters not met - Comment: [phone] (Not Given - Provider: Huang Gurrola RN - Reason: Order parameters not met)1800 (Given - Provider: Huang Gurrola RN) 0002 (Not Given - Provider: Jono Serrano RN - Reason: Order parameters not met)0835 (Not Given - Provider: Little Treadwell RN - Reason: Order parameters not met)1122 (Not Given - Provider: Little Treadwell RN - Reason: Order parameters not met)1631 (Not Given - Provider: Little Treadwell RN - Reason: Order parameters not met)2122 (Not Given - Provider: Jono Serrano RN - Reason: Order parameters not met) 0717 (Not Given - Provider: Yair Schofield RN - Reason: Order parameters not met)1039 (Not Given - Provider: Yair Schofield RN - Reason: Order parameters not met - Comment: [phone] (Due)2100 (Due) lisinopril (PRINIVIL;ZESTRIL) tablet 10 mg 10 mg, Oral, DAILY, First dose (after last modification) on Thu12/03/21 at 0900, Until Discontinued 0847 (Given - Provider: Little Treadwell RN) 0846 (Given - Provider: Yair Schofield RN) lisinopril (PRINIVIL;ZESTRIL) tablet 5 mg (CANCELED) 5 mg, Oral, DAILY, First dose on Thu11/29/21 at 1445, Until Discontinued 0936 (Given - Provider: Huang Gurrola RN) metoprolol tartrate (LOPRESSOR) tablet 25 mg 25 mg, Oral, 2 TIMES DAILY, First dose on Thu12/02/21 at 1430, Until Discontinued 1409 (Not Given - Provider: Huang Gurrola RN - Reason: Other - Comment: start with evening dose)2053 (Given - Provider: Jono Serrano RN) 0847 (Given - Provider: Little Treadwell RN)2021 (Given - Provider: Jono Serrano RN) 0847 (Given - Provider: Yair Schofield RN)2100 (Due) ofloxacin (OCUFLOX) 0.3 % solution 5 drop (COMPLETED) 5 drop, Left Ear, DAILY, 5 doses, First dose (after last modification) on Thu11/30/21 at 0900, Last dose on Thu12/04/21 at 0900 0943 (Given - Provider: Huang Gurrola RN) 0848 (Given - Provider: Little Treadwell RN) 0847 (Given - Provider: Yair Schofield RN) tamsulosin (FLOMAX) capsule 0.4 mg 0.4 mg, Oral, DAILY, First dose on Thu12/01/21 at 2100, Until Discontinued, Do not crush or break. 0936 (Given - Provider: Huang Gurrola RN) 0847 (Given - Provider: Little Treadwell RN) 0847 (Given - Provider: Yair Schofield RN) Continuous Medication Order 12/02/2021 12/03/2021 12/04/2021 0.9 % sodium chloride infusion (CANCELED) IntraVENous, at 75 mL/hr, CONTINUOUS, Starting on Kimmie 11/28/21 at 0745 0310 (New Bag - Provider: Charo Rudd RN) amiodarone (CORDARONE) 450 mg in dextrose 5 % 250 mL infusion (CANCELED) 1 mg/min (33.3333 mL/hr, rounded to 33.3 mL/hr), IntraVENous, CONTINUOUS, Starting on Thu12/02/21 at 1200, Until Thu12/02/21 at 1759, 33.3 ml/hr (1mg/min) x 6hrs. Use in-line filter. 1203 (New Bag - Provider: Huang Gurrola RN) amiodarone (CORDARONE) 450 mg in dextrose 5 % 250 mL infusion (CANCELED) 0.5 mg/min (16.6667 mL/hr, rounded to 16.7 mL/hr), IntraVENous, CONTINUOUS, Starting on Thu12/02/21 at 1800, Until Thu12/03/21 at 1041, 16.7 ml/hr (0.5mg/min) Use in-line filter. May prolong Qt interval. 1802 (New Bag - Provider: Huang Gurrola RN)2350 (New Bag - Provider: Jono Serrano RN) 1121 (Stopped - Provider: Little Treadwell, JUAN) PRN Medication Order 12/02/2021 12/03/2021 12/04/2021 acetaminophen (TYLENOL) tablet 650 mg 650 mg, Oral, EVERY 4 HOURS PRN, Starting on Kimmie 11/28/21 at 0317, Until Discontinued, Pain Mild (1-3), Fever, Fever >100.5 (38 C), Maximum dose of acetaminophen is 4000 mg from all sources in 24 hours. 0638 (Given - Provider: Charo Rudd, JUAN) 0123 (Given - Provider: Jono Serrano, JUAN)0846 (Given - Provider: Little Treadwell, RN)2253 (Given - Provider: Jono Serrano, JUAN) 0735 (Given - Provider: Yair Schofield, JUAN)1223 (Given - Provider: Yair Schofield, JUAN) dextrose 10 % infusion IntraVENous, at 100 mL/hr, CONTINUOUS PRN, if blood glucose remains LESS THAN 70 mg/dL after 2 dextrose 10% intravenous boluses or administration of glucagon, Starting on Kimmie 11/28/21 at 0752, If blood glucose fails to stabilize after 2 dextrose 10% intravenous boluses or glucagon administration, start dextrose 10% infusion at 100 mL/hour and repeat blood glucose at 30 and 60 minutes. If blood glucose is GREATER THAN 70 mg/dL after 60 minutes, discontinue dextrose 10% infusion. dextrose bolus 10% 125 mL(Linked Group 2) 125 mL, IntraVENous, at 937.5 mL/hr, Administer over 8 Minutes, PRN, Other, Blood glucose 40 - 69 mg/dL and patient NOT ALERT or NPO, Starting on [facility] 11/28/21 at 0752, Repeat blood glucose in 15 minutes. If blood glucose remains LESS THAN 70 mg/dL, repeat treatment and recheck blood glucose in 15 minutes x 2. If using glycemic management system, dose as instructed per system. If blood glucose remains LESS THAN 70 mg/dL after 2 intravenous boluses start dextrose 10% at 100 mL/hour and notify provider. dextrose bolus 10% 250 mL(Linked Group 2) 250 mL, IntraVENous, at 937.5 mL/hr, Administer over 16 Minutes, PRN, Other, Blood glucose LESS THAN 40 mg/dL and patient NOT ALERT or NPO, Starting on Kimmie 11/28/21 at 0752, Repeat blood glucose in 15 minutes. If blood glucose remains LESS THAN 70 mg/dL, repeat treatment and recheck blood glucose in 15 minutes x 2. If using glycemic management system, dose as instructed per system. If blood glucose remains LESS THAN 70 mg/dL after 2 intravenous boluses start dextrose 10% at 100 mL/hour and notify provider. glucagon (rDNA) injection 1 mg 1 mg, SubCUTAneous, PRN, Starting on Thu11/28/21 at 0752, Until Discontinued, Low blood sugar, Blood glucose LESS THAN 70 mg/dL and patient NOT ALERT or NPO and does not have IV access., After administration, attempt intravenous access and start dextrose 10% at 100 mL/hr. Repeat blood glucose in 15 minutes x 2 and notify provider. glucose chewable tablet 16 g 16 g (4 tablet), Oral, PRN, Starting on Kimmie 11/28/21 at 0752, Until Discontinued, Low blood sugar, If blood glucose is LESS THAN 70 mg/dL and patient is alert and tolerating oral. Give 4 tablets (16g) Repeat blood glucose in 15 minutes. If blood glucose is LESS THAN 70 mg/dL, repeat treatment and recheck blood glucose in 15 minutes x 2. If blood glucose remains LESS THAN 70 mg/dL, notify provider. hyoscyamine (LEVSIN/SL) sublingual tablet 125 mcg 125 mcg, SubLINGual, EVERY 6 HOURS PRN, Starting on Thu12/01/21 at 2035, Until Discontinued, Cramping, bladder spasms 0941 (Given - Provider: Huang Gurrola RN) labetalol (NORMODYNE;TRANDATE) injection 10 mg 10 mg, IntraVENous, EVERY 4 HOURS PRN, Starting on Thu11/28/21 at 1319, Until Discontinued, High Blood Pressure, SBP > 160, Hold for HR < 60 0638 (Given - Provider: Charo Rudd RN) loperamide (IMODIUM) capsule 2 mg 2 mg, Oral, 4 TIMES DAILY PRN, Starting on Thu12/02/21 at 1543, Until Discontinued, Diarrhea, After each loose stool. metoprolol (LOPRESSOR) injection 5 mg 5 mg, IntraVENous, EVERY 6 HOURS PRN, 3 doses, Starting on Thu12/02/21 at 0301, Until Discontinued, High Blood Pressure, HR >140 0307 (Given - Provider: Charo Rudd RN) ondansetron (ZOFRAN) injection 4 mg(Linked Group 3) 4 mg, IntraVENous, EVERY 6 HOURS PRN, Starting on Thu11/28/21 at 0317, Until Discontinued, Nausea, Vomiting, Administer if oral route cannot be used. ondansetron (ZOFRAN-ODT) disintegrating tablet 4 mg(Linked Group 3) 4 mg, Oral, EVERY 8 HOURS PRN, Starting on Thu11/28/21 at 0317, Until Discontinued, Nausea, Vomiting opium-belladonna (B&O SUPPRETTES) 16.2-60 MG suppository 60 mg mg dosing is based on opium component, 60 mg, Rectal, EVERY 8 HOURS PRN, Starting on Thu12/02/21 at 1230, Until Discontinued, Bladder Spasms, Note: Additive effect with hyoscyamine. sodium chloride flush 0.9 % injection 10 mL 10 mL, IntraVENous, PRN, Starting on Thu11/28/21 at 0937, Until Discontinued, Line Care 0847 (Given - Provider: Yair Schofield RN) Linked Groups Order Group 1: amiodarone (CORDARONE) tablet 200 mgJump to med 200 mg, Oral, 2 TIMES DAILY, 10 doses, First dose on Thu12/03/21 at 1100, Last dose on Thu12/07/21 at 2100 Followed by amiodarone (CORDARONE) tablet 200 mgJump to med 200 mg, Oral, DAILY, First dose on Thu12/08/21 at 0900, Until Discontinued Group 2: dextrose bolus 10% 125 mLJump to med 125 mL, IntraVENous, at 937.5 mL/hr, Administer over 8 Minutes, PRN, Other, Blood glucose 40 - 69 mg/dL and patient NOT ALERT or NPO, Starting on Kimmie 11/28/21 at 0752
Repeat blood glucose in 15 minutes. If blood glucose remains LESS THAN 70 mg/dL, repeat treatment and recheck blood glucose in 15 minutes x 2. If using glycemic management system, dose as instructed per system. If blood glucose remains LESS THAN 70 mg/dL after 2 intravenous boluses start dextrose 10% at 100 mL/hour and notify provider.
Or dextrose bolus 10% 250 mLJump to med 250 mL, IntraVENous, at 937.5 mL/hr, Administer over 16 Minutes, PRN, Other, Blood glucose LESS THAN 40 mg/dL and patient NOT ALERT or NPO, Starting on Kimmie 11/28/21 at 0752
Repeat blood glucose in 15 minutes. If blood glucose remains LESS THAN 70 mg/dL, repeat treatment and recheck blood glucose in 15 minutes x 2. If using glycemic management system, dose as instructed per system. If blood glucose remains LESS THAN 70 mg/dL after 2 intravenous boluses start dextrose 10% at 100 mL/hour and notify provider.
Group 3: ondansetron (ZOFRAN-ODT) disintegrating tablet 4 mgJump to med 4 mg, Oral, EVERY 8 HOURS PRN, Starting on Kimmie 11/28/21 at 0317, Until Discontinued, Nausea, Vomiting Or ondansetron (ZOFRAN) injection 4 mgJump to med 4 mg, IntraVENous, EVERY 6 HOURS PRN, Starting on Kimmie 11/28/21 at 0317, Until Discontinued, Nausea, Vomiting
Administer if oral route cannot be used.
Goals (unrecognized section and content) Goals may be documented in a n alternate section Care Teams (unrecognized sec tion and content) Technical Recruiter Relationship Specialty Start Date End Date Valente Martinez DO [address] [place] [address] PCP - General 03/23/99 Technical Recruiter Relationship Specialty Start Date End Date Unallocated, Godwin Ojeda MD [address] [place] [address] PCP - General Family Medicine 06/04/23 Technical Recruiter Relationship Specialty Start Date End Date Unallocated, Godwin Ojeda MD [address] [place] [address] PCP - General Family Medicine 06/04/23 Technical Recruiter Relationship Specialty Start Date End Date Veronica Liz MD [address] [facility], [address] [place] [address] PCP - MSSP ACO Attributed Provider 03/23/23 FOR RECORDS PERTAINING TO PATIENTS WHO ARE OR HAVE BEEN ENROLLED IN A CHEMICAL DEPENDENCY/SUBSTANCEABUSE PROGRAM, SOME INFORMATION MAY BE OMITTED. This clinical summary was aggregated from multiple sources. Caution should be exercised in using it in the provision of clinical care. This summary normalizes information from multiple sources, and as a consequence, information in this document may materially change the coding, format and clinical context of patient data. In addition, data may be omitted in some cases. CLINICAL DECISIONS SHOULD BE BASED ON THE PRIMARY CLINICAL RECORDS. [employer] [facility]. provides no warranty or guarantee of the accuracy or completeness of information in this document.
[2024-04-05 07:49] LABS: Hematocrit 35.7 % (42.0-54.0); Hemoglobin 12.4 g/dL (14.0-18.0); Mean Corpuscular HGB Conc 34.7 g/dL (29.9-35.2); Mean Corpuscular Hemoglobin 34.4 pg (25.9-34.0); Mean Corpuscular Volume 99.2 fL (80.0-94.0); Mean Platelet Volume 10.2 fL (9.5-13.5); Platelet Count 170 10^3/uL (150-450); Red Cell Distribution Width 13.7 % (11.0-15.0); White Blood Count 7.9 10^3/uL (4.0-11.0)
[2024-04-05] MEDS: ONDANSETRON PF 4 MG/2 ML VIAL IV (07:52)
[2024-04-05 07:58] LABS: Anion Gap 13.6; Calcium 8.2 mg/dL (8.5-10.1); Carbon Dioxide 27.6 mmol/L (21.0-32.0); Chloride 100 mmol/L (98-107); Estimated GFR (African America 53 (>=60 mL/min/1.73m^2); Estimated GFR (Non-African Ame 44 (>=60 mL/min/1.73m^2); Glucose 141 mg/dL (74-106); Potassium 4.2 mmol/L (3.5-5.1); Sodium 137 mmol/L (136-145)
[2024-04-05 08:00] LABS: INR 1.12; Partial Thromboplastin Time 29.3 sec (22.3-36.2); Prothrombin Time 11.7 sec (9.0-11.6)
--- NOTE | 2024-04-05 08:07 | CT_ITS ---
[address] [address] Patient Name: SHAHRZAD EDGAR MRN: [id number] date: 1945 Sex: M Assigned Patient Location: ER Current Patient Location: Accession/Order Number: [id number] Exam Date: 04/05/2024 08:21 Report Date: 04/05/2024 08:54 At the request of: HUI LOREDO Procedure: CT angio neck EXAM: CT angio neck, CT angio head HISTORY: Expressive aphasia COMPARISON: CT head 04/05/2024, CTA Head and Neck 10/05/2023 TECHNIQUE: Axial noncontrast CT imaging of the head was performed. Subsequent postcontrast CTA imaging of the head and neck was performed with coronal and sagittal reformats. Maximum intensity projection and 3-D reformats were performed on a separate workstation. NASCET criteria was utilized. This CT exam was performed using one or more of the following dose reduction techniques: Automated exposure control, adjustment of the MA and/or kV according to patient size, or use of iterative reconstruction technique. FINDINGS: Aortic arch: Please note the aortic arch and origins of the aortic arch branch vessels were not included in the [id number]. Right carotid system: Short segment approximately 50% stenosis involving the right carotid bulb not substantially changed from prior. Left carotid system: No evidence of significant (50% or greater) stenosis or occlusion. Vertebral arteries: Left vertebral artery dominance.. No evidence of significant (50% or greater) stenosis or occlusion. Anterior circulation: No evidence of aneurysm, significant stenosis, or occlusion. Vertebrobasilar system: No evidence of aneurysm, significant stenosis, or occlusion. The diminutive appearing basilar artery terminates predominantly of the superior cerebellar arteries with bilateral -type posterior cerebral arteries. Venous sinuses: Grossly patent. Additional findings: No abnormal intraparenchymal enhancement. CT/CT angio neck IMPRESSION: 1. Similar approximately 50% stenosis involving the right carotid bulb. 2. Otherwise no significant stenosis, large vessel occlusion or aneurysm involving the remaining visualized neck or intracranial arterial vasculature. 3. Please note the aortic arch and aortic arch branch vessel origins were not included in the [id number]. Electronically authenticated by: EULALIO COCHRAN Date: 04/05/2024 08:54
[2024-04-05 08:11] LABS: Eosinophils Absolute Manual 0.07 10^3/uL (0.00-0.70); Lymphocytes Absolute Manual 0.47 10^3/uL (1.20-3.80); Monocytes Absolute Manual 1.02 10^3/uL (0.30-0.80); Segmented Neut Absolute Manual 6.32 10^3/uL (1.4-6.5)
[2024-04-05 08:13] LABS: Ovalocytes 1+; Poikilocytosis 1+
--- NOTE | 2024-04-05 08:28 | CT_ITS ---
[address] [address] Patient Name: SHAHRZAD EDGAR MRN: [id number] date: 1945 Sex: M Assigned Patient Location: ER Current Patient Location: Accession/Order Number: [id number] Exam Date: 04/05/2024 08:21 Report Date: 04/05/2024 08:54 At the request of: HUI LOREDO Procedure: CT angio head EXAM: CT angio neck, CT angio head HISTORY: Expressive aphasia COMPARISON: CT head 04/05/2024, CTA Head and Neck 10/05/2023 TECHNIQUE: Axial noncontrast CT imaging of the head was performed. Subsequent postcontrast CTA imaging of the head and neck was performed with coronal and sagittal reformats. Maximum intensity projection and 3-D reformats were performed on a separate workstation. NASCET criteria was utilized. This CT exam was performed using one or more of the following dose reduction techniques: Automated exposure control, adjustment of the MA and/or kV according to patient size, or use of iterative reconstruction technique. FINDINGS: Aortic arch: Please note the aortic arch and origins of the aortic arch branch vessels were not included in the [id number]. Right carotid system: Short segment approximately 50% stenosis involving the right carotid bulb not substantially changed from prior. Left carotid system: No evidence of significant (50% or greater) stenosis or occlusion. Vertebral arteries: Left vertebral artery dominance.. No evidence of significant (50% or greater) stenosis or occlusion. Anterior circulation: No evidence of aneurysm, significant stenosis, or occlusion. Vertebrobasilar system: No evidence of aneurysm, significant stenosis, or occlusion. The diminutive appearing basilar artery terminates predominantly of the superior cerebellar arteries with bilateral -type posterior cerebral arteries. Venous sinuses: Grossly patent. Additional findings: No abnormal intraparenchymal enhancement. CT/CT angio head IMPRESSION: 1. Similar approximately 50% stenosis involving the right carotid bulb. 2. Otherwise no significant stenosis, large vessel occlusion or aneurysm involving the remaining visualized neck or intracranial arterial vasculature. 3. Please note the aortic arch and aortic arch branch vessel origins were not included in the [id number]. Electronically authenticated by: EULALIO COCHRAN Date: 04/05/2024 08:54
--- OUTSIDE RECORDS SUMMARY | 2024-04-05 11:22 | XMS_ITS | CCD ---
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 Role Phone IGORVANESSA MOHANMAKAYLALeila Attending Unavailable HOUSE, VALENTE Primary Care Unavailable Michelle, Valente P Unavailable Unavailable Unavailable Saurabh Goyal [...] Admitting Unavailable JUSTEN, DR MCDANIEL Attending Unavailable JUSTNE, DR MCDANIEL Consulting Unavailable WEST, DR REINA [...] Unavailable PAY ., DR ORLANDO Attending Unavailable GENOA, DR REINA Palacios Consulting Unavailable PAY ., [...] Care Provi miya Veronica Liz MD Unavailable [phone] TRABOULSSI, MOURHAF Attending Unavailable TRABOULSSI, MOURHAF Referring Unavailable TRABOULSSI, MOURHAF Attending Unavailable TRABOULSSI, MOURHAF Referring Unavailable MARCIANO HI Attending Unavailable MARCIANO HI Attending Unavailable MARCIANO HI Attending Unavailable MARCIANO HI Attending Unavailable MARCIANO HI Attending Unavailable Allergies Allergy Classification Reported Allergen(s) Allergy Type Date of Onset Reaction(s) Facility (2 sources) Coconut extract Drug Allergy Unknown [employer] Other (1 source) coconut allergenic extract Drug Allergy 11-28-2021 Anaphylaxis [facility] (1 source) Coconut extract Drug Allergy 01-31-2016 [facility] Repository (4 sources) Coconut Oil OIL; Translations: [Coconut Oil OIL] Allergy to drug (finding) [facility] 250 DO Work Phone: (1 source) Coconut extract Drug Allergy 12-13-2020 [facility] Repository (4 sources) Coconut Oil; Translations: [COCONUT OIL] Drug Allergy 01-29-[address] [facility] Medications Current Medications Medication Drug Class(es) Dates [...] 20, 2019 1:00am take 0.5 tablet by 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; Translations: [RESIDENTIAL CURRENT USE OF ASPIRIN] Onset: 04-23-2022 Episodic Other aftercare (5 sources) Taking high risk medication; Translations: [Other alf (current) drug therapy] Onset: 01-29-2023 01-29-2023 Episodic [...] UNS] Onset: 04-20-2022 Chronic Unclassified (1 source) 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 (current) use of oral hypoglycemic drugs Onset: [...] 08-26-2021 Episodic Other aftercare (3 sources) 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; Translations: [OTH RESIDENTIAL CURRENT DRUG THERAPY] Onset: 04-23-2022 Episodic Other aftercare (1 source) 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; Translations: [RESIDENTIAL USE ORAL HYPOGLYCEMIC DX] Onset: 12-09-2021 Episodic [...] with a QTc interval of 495 ms [facility] Work Phone: ECG 12 [place] 07-30-2023 Atrial fibrillation with nonspecific ST-T changes [facility] Work Phone: ECG 12 [place] 01-29-2023 Normal sinus rhythm with a QTc interval of 481 ms [facility] Work Phone: Tobacco Screening.on 023 Adult depression screening assessment No [facility] [employer] Work Phone: Fall risk assessment b) One or more fall s in the last year [facility] [place] Work Phone: Tobacco use status [facility] b) No [facility]umm[facility]ummRosita [facility] [employer] Work Phone: Office Visit (Cardiology)on 06-06-2022 Follow-up [...] try to retrieve retrieve his record from [place] Surgical History Problems History of Back surgery [...] Recorded: 06Jun2022 09:22AM Heart Rate80, L Radial Tqqrgiil544, LUE, Sitting Izeytiexg77, LUE, Sitting Height6 ft 1 in Ayvmvv666 lb BMI Gtapgrdczk89.84 kg/m2 BSA Calculated2.2 Tobacco Useb) No Falls [...] irregular, p (more content not included)... Normal [employer] Tobacco Screening.on 023 Fall risk assessment a) No falls within the last year [facility] DATY 250 DO Work Phone: Tobacco use status [facility] b) No [facility] [employer] 250 DO Work Phone: Office Visit (Cardiology)on [...] Former smoker Tobacco Use Screening; Status:Complete; Done: [id number] Patient Instructions Please bring all medicines, vitamins, and herbal supplements with you when you come to the office. Prescriptions will not be filled unless you are compliant with your follow up appointments or have a follow up appointment scheduled as per instruction of your physician. Refills should be requested at the time of your visit. Fall prevention education given ProviderTrust Device discuss with patient Patient to call with correct medication list Retrieve records from [place] Will come back tomorrow with medication bottles [...] reports he was in the hospital in [place] in [place] after a stroke. He does not know [...] 4. I to retrieve his record from [place] 5. I advised the patient TO bring [...] Coconut Oil OIL Adverse Reaction; Recorded By: Krsitin Mcmanus; 06/05/2022 1:12:09 PM Social History Problems Caffeine use (V49.89) (Z78.9) 2 CUPS OF COFFEE DAILY Consumes alcohol (V49.89) (Z78.9) 1 BEER OCCASIONALLY Former smoker (V15.82 (more content not included)... Normal [employer] Tobacco Screening.on 023 Adult depression screening assessment No [facility] Tarari 250 DO Work Phone: Fall risk assessment b) One or more fall s in the last year [facility] DATY 250 DO Work Phone: Tobacco use status CPHS b) No [facility] DATY 250 DO Work Phone: CBC AUTO DIFFon 05-14-2022 BASO # 0.0 103/ul Normal 0.0-0.1 [facility] Comment on above: Performed By: #### C BC ####[facility] [address] [place], [place] [address]Dr. Sea Pugh Basophils/100 WBC (Bld) 0.5 % Normal 0.2-2.0 [facility] Comment on above: Performed By: #### C BC ####[facility] [address] [place], [place] [address]Dr. Sea Pugh EO # 0.4 103/ul Normal 0.0-0.7 [facility] Comment on above: Performed By: #### C BC ####[facility] [address] [place], [place] [address]Dr. Shondapreston Keaton Eosinophils/100 WBC (Bld) 4.7 % Normal 0.9-7.0 [facility] Comment on above: Performed By: #### C BC ####[facility] [address] [place], [place] [address]Dr. Sea Pugh Erythrocyte distribution width (RBC) [Ratio] 13.7 % Normal 11.0-15.0 [facility] Comment on above: Performed By: #### C BC ####[facility] [address] [place], [place] [address]Dr. Sea Pugh Hematocrit (Bld) [Volume fraction] 40.5 % Critically low 42.0-54.0 [facility] Comment on above: Performed By: #### C BC ####[facility] [address] [place], [place] [address]Dr. Sea Pugh Hemoglobin (Bld) [Mass/Vol] 13.5 g/dL Critically low 14.0-18.0 [facility] Comment on above: Performed By: #### C BC ####[facility] [address] [place], [place] [address]Dr. Sea Pugh IG # 0.03 10e3/ul Normal 0.00-0.03 [facility] Comment on above: Performed By: #### C BC ####[facility] [address] [id number]. Sea Pugh IG % 0.4 % Normal 0.0-0.5 [facility] Comment on above: Performed By: #### C BC ####[facility] [address] [place] [address]Dr. Sea Pugh LYMPH # 2.0 103/ul Normal 1.2-3.8 [facility] Comment on above: Performed By: #### C BC ####[facility] [address] [place], [place] [address]DrMook Pugh Lymphocytes/100 WBC (Bld) 25.4 % Normal 20.5-60.0 [facility] Comment on above: Performed By: #### C BC ####[facility] [address] [place], [place] [address]Dr. Sea Pugh MANUAL DIFF REQ NO Normal [facility] Comment on above: Performed By: #### C BC ####[facility] [address] [place] [address]Dr. Shondapreston Pugh MCH (RBC) [Entitic mass] 29.6 pg Normal 25.9-34.0 [facility] Comment on above: Performed By: #### C BC ####[facility] [address] [place], [place] [address]Dr. Sea Keaton MCHC (RBC) [Mass/Vol] 33.3 g/dL Normal 29.9-35.2 [facility] Comment on above: Performed By: #### C BC ####[facility] [address] [place], [place] [address]DrMook Pugh MCV (RBC) [Entitic vol] 88.8 fL Normal 80.0-94.0 [facility] Comment on above: Performed By: #### C BC ####[facility] [address] [place], [place] [address]DrMook Pugh MONO # 0.8 103/ul Normal 0.3-0.8 [facility] Comment on above: Performed By: #### C BC ####[facility] [address] [place], [place] [address]Dr. Sea Pugh Monocytes/100 WBC (Bld) 10.4 % Normal 1.7-12.0 [facility] Comment on above: Performed By: #### C BC ####[facility] [address] [id number]. Sea Pugh NEUT # 4.6 103/ul Normal 1.4-6.5 [facility] Comment on above: Performed By: #### C BC ####[facility] [address] [place] [address]Dr. Sea Pugh Neutrophils/100 WBC (Bld) 58.6 % Normal 43.0-75.0 [facility] Comment on above: Performed By: #### C BC ####[facility] [address] [place] [address]Dr. Sea Pugh Platelet mean volume (Bld) [Entitic vol] 9.8 fL Normal 9.5-13.5 [facility] Comment on above: Performed By: #### C BC ####[facility] [address] [place] [address]Dr. Sea Pugh PLT 243 103/ul Normal 150-450 [facility] Comment on above: Performed By: #### C BC ####[facility] [address] [place] [address]Dr. Sea Pugh RBC 4.56 106/ul Critically low 4.70-6.10 [facility] Comment on above: Performed By: #### C BC ####[facility] [address] [id number]. Sea Pugh WBC 7.8 103/ul Normal 4.0-11.0 [facility] Comment on above: Performed By: #### C BC ####[facility] [address] [place] [address]Dr. Sea Pugh CBC AUTO DIFFon 04-21-2022 BASO # 0.1 103/ul Normal 0.0-0.1 [facility] Comment on above: Performed By: #### H STROPN, CMP, CRP #### [facility] [address] [address] [address] Sea Pugh Basophils/100 WBC (Bld) 0.7 % Normal 0.2-2.0 [facility] Comment on above: Performed By: #### H STROPN, CMP, CRP #### [facility] [address] [place] [address] Dr. Sea Pugh EO # 0.3 103/ul Normal 0.0-0.7 [facility] Comment on above: Performed By: #### H STROPN, CMP, CRP #### [facility] [address] [place] [address] Dr. Sea Pugh Eosinophils/100 WBC (Bld) 4.9 % Normal 0.9-7.0 [facility] Comment on above: Performed By: #### H STROPN, CMP, CRP #### [facility] [address] [place] [address] Dr. Sea Pugh Erythrocyte distribution width (RBC) [Ratio] 14.0 % Normal 11.0-15.0 [facility] Comment on above: Performed By: #### H STROPN, CMP, CRP #### [facility] [address] [place] [address] Dr. Sea Pugh Hematocrit (Bld) [Volume fraction] 38.5 % Critically low 42.0-54.0 [facility] Comment on above: Performed By: #### H STROPN, CMP, CRP #### [facility] [address] [place] [address] Dr. Sea Pugh Hemoglobin (Bld) [Mass/Vol] 13.3 g/dL Critically low 14.0-18.0 [facility] Comment on above: Performed By: #### H STROPN, CMP, CRP #### [facility] [address] [place] [address] Dr. Sea Pugh IG # 0.02 10e3/ul Normal 0.00-0.03 [facility] Comment on above: Performed By: #### H STROPN, CMP, CRP #### [facility] [address] [place] [address] Dr. Sea Pugh IG % 0.3 % Normal 0.0-0.5 [facility] Comment on above: Performed By: #### H STROPN, CMP, CRP #### [facility] [address] [place] [address] Dr. Sea Pugh LYMPH # 1.5 103/ul Normal 1.2-3.8 [facility] Comment on above: Performed By: #### H STROPN, CMP, CRP #### [facility] [address] [place] [address] Dr. Sea Pugh Lymphocytes/100 WBC (Bld) 22.7 % Normal 20.5-60.0 [facility] Comment on above: Performed By: #### H STROPN, CMP, CRP #### [facility] [address] [place] [address] Dr. Sea Pugh MANUAL DIFF REQ NO Normal [facility] Comment on above: Performed By: #### H STROPN, CMP, CRP #### [facility] [address] [place] [address] Dr. Sea Pugh MCH (RBC) [Entitic mass] 29.4 pg Normal 25.9-34.0 [facility] Comment on above: Performed By: #### H STROPN, CMP, CRP #### [facility] [address] [place] [address] Dr. Sea Pugh MCHC (RBC) [Mass/Vol] 34.5 g/dL Normal 29.9-35.2 [facility] Comment on above: Performed By: #### H STROPN, CMP, CRP #### [facility] [address] [place] [address] Dr. Sea Pugh MCV (RBC) [Entitic vol] 85.0 fL Normal 80.0-94.0 [facility] Comment on above: Performed By: #### H STROPN, CMP, CRP #### [facility] [address] [place] [address] Dr. Sea Pugh MONO # 0.7 103/ul Normal 0.3-0.8 [facility] Comment on above: Performed By: #### H STROPN, CMP, CRP #### [facility] [address] [place], [place] [id number] Dr. Sea Pugh Monocytes/100 WBC (Bld) 10.2 % Normal 1.7-12.0 [facility] Comment on above: Performed By: #### H STROPN, CMP, CRP #### [facility] [address] [address] [address] Sea Pugh NEUT # 4.1 103/ul Normal 1.4-6.5 [facility] Comment on above: Performed By: #### H STROPN, CMP, CRP #### [facility] [address] [place] [address] Dr. Sea Pguh Neutrophils/100 WBC (Bld) 61.2 % Normal 43.0-75.0 [facility] Comment on above: Performed By: #### H STROPN, CMP, CRP #### [facility] [address] [place] [address] Dr. Sea Pugh Platelet mean volume (Bld) [Entitic vol] 9.1 fL Critically low 9.5-13.5 [facility] Comment on above: Performed By: #### H STROPN, CMP, CRP #### [facility] [address] [place] [address] Dr. Sea Pugh PLT 216 103/ul Normal 150-450 [facility] Comment on above: Performed By: #### H STROPN, CMP, CRP #### [facility] [address] [place] [address] Dr. Sea Pugh RBC 4.53 106/ul Critically low 4.70-6.10 [facility] Comment on above: Performed By: #### H STROPN, CMP, CRP #### [facility] [address] [place] [address] Dr. Sea Pugh WBC 6.8 103/ul Normal 4.0-11.0 [facility] Comment on above: Performed By: #### H STROPN, CMP, CRP #### [facility] [address] [place] [address] Dr. Sea Pugh ECHOCARDIO M/2D COMPLETEon 0 04-21-2022 ECHOCARDIO M/2D COMPLETE Patient: SHAHRZAD EDGAR. Exam Date: 04/21/2022 : 1945 Gender:M Ordering : SHAIKH Marya CAMPOS . Admission #: [id number] Family : Order #: [id number] CLICK HERE TO VIEW EXAM ECHOCARDIOGRAM REPORT PROCEDURE: CARDIO PULMONARY ECHOCARDIO M/2D COMP INDICATIONS: Elevated troponin, TIA, HX:[place] COMPARISON: None. DESCRIPTION: COMPLETE ECHOCARDIOGRAM Real-time transthoracic [...] Chan M.D. on 04/21/2022 at 14:57 Normal [facility] MRI BRAIN WO CONon 3 MRI [...] DE SANTIAGO Date: 2022-04-21 14:41 Normal [facility] POINT OF CARE GLUCOSEon 03-25 Glucose [Mass/Vol] 180 mg/dL Critically high 74-106 [facility] Comment on above: Performed By: #### P OCGLUC ####[facility] [address] [place], [place] [address]Dr. Sea Pugh PROF CHEM 8 (BAS METB)on Anion gap [Moles/Vol] 13.5 mmol/L Normal [facility] Comment on above: Performed By: #### D DIM #### [facility] [address] [address] [address] Sea Pugh Calcium [Mass/Vol] 8.7 mg/dL Normal 8.5-10.1 [facility] Comment on above: Performed By: #### D DIM #### [facility] [address] [address] [address] Sea Pugh Chloride [Moles/Vol] 100 mmol/L Normal 98-107 [facility] Comment on above: Performed By: #### D DIM #### [facility] [address] [address] [address] Sea Pugh CO2 [Moles/Vol] 27.2 mmol/L Normal 21.0-32.0 [facility] Comment on above: Performed By: #### D DIM #### [facility] [address] [address] [address] Sea Pugh Creatinine [Mass/Vol] 1.27 mg/dL Normal 0.70-1.30 [facility] Comment on above: Performed By: #### D DIM #### [facility] [address] [address] [address] Sea Pugh EGFR-AF PALAUAN >60 Normal >=60 [facility] Comment on above: Performed By: #### D DIM #### [facility] [address] [address] [address] Sea Pugh EGFR-NON AF PALAUAN 55 mL/min/1.73m2 Critically low >=60 [facility] Comment on above: Performed By: #### D DIM #### [facility] [address] [address] [address] Sea Pugh Glucose [Mass/Vol] 134 mg/dL Critically high 74-106 [facility] Comment on above: Performed By: #### D DIM #### [facility] [address] [address] [address] Sea Pugh Potassium [Moles/Vol] 3.7 mmol/L Normal 3.5-5.1 [facility] Comment on above: Performed By: #### D DIM #### [facility] [address] [address] [address] Sea Pugh Sodium [Moles/Vol] 137 mmol/L Normal 136-145 [facility] Comment on above: Performed By: #### D DIM #### [facility] [address] [address] [address] Sea Pugh Urea nitrogen [Mass/Vol] 14.0 mg/dL Normal 7.0-18.0 [facility] Comment on above: Performed By: #### D DIM #### [facility] [address] [address] [address] Sea Pugh Urea nitrogen/Creatinine [Mass ratio] 11.0 mg/mg Normal [facility] Comment on above: Performed By: #### D DIM #### [facility] [address] [address] [address] Sea Pugh CARDIAC SRINIVASAN 3-6on 3 CK [Catalytic activity/Vol] 282 U/L Normal 39-308 [facility] Comment on above: Performed By: #### H PACOPN, CMP, CRP #### [facility] [address] [address] [address] Sea Pugh CK.MB [Mass/Vol] 4.34 ng/mL Critically high <=3.60 [facility] Comment on above: Performed By: #### H STROPN, CMP, CRP #### [facility] [address] [place] [address] Dr. Sea Pugh HSTROP 113.2 pg/mL Critically high 4.0-76.1 [facility] Comment on above: Result Comment: CUT- OFF POINTS HAVE BEEN ESTABLISHED BASED ON THE FOURTH UNIVERSAL DEFINITIONS OF MYOCARDIAL INFARCTION. THE UPPER REFERENCE LIMIT (URL) OF TROPONIN, DEFINED THE 99TH PERCENTILE OF cTnI DISTRIBUTION IN A REFERENCE POPULATION, HAS BEEN CONFIRMED THE DECISION THRESHOLD FOR [place] DIAGNOSIS. Performed By: #### H STROPN, CMP, CRP #### [facility] [address] [place] [address] Dr. Sea Pugh CBC AUTO DIFFon 04-20-2022 BASO # 0.0 103/ul Normal 0.0-0.1 [facility] Comment on above: Performed By: #### H STROPN, CMP, CRP #### [facility] [address] [place] [address] Dr. Sea Pugh Basophils/100 WBC (Bld) 0.5 % Normal 0.2-2.0 [facility] Comment on above: Performed By: #### H STROPN, CMP, CRP #### [facility] [address] [place] [address] Dr. Sea Pugh EO # 0.1 103/ul Normal 0.0-0.7 [facility] Comment on above: Performed By: #### H STROPN, CMP, CRP #### [facility] [address] [place] [address] Dr. Sea Pugh Eosinophils/100 WBC (Bld) 0.6 % Critically low 0.9-7.0 [facility] Comment on above: Performed By: #### H STROPN, CMP, CRP #### [facility] [address] [place] [address] Dr. Sea Pugh Erythrocyte distribution width (RBC) [Ratio] 13.6 % Normal 11.0-15.0 [facility] Comment on above: Performed By: #### H STROPN, CMP, CRP #### [facility] [address] [place] [address] Dr. Sea Pugh Hematocrit (Bld) [Volume fraction] 37.2 % Critically low 42.0-54.0 [facility] Comment on above: Performed By: #### H STROPN, CMP, CRP #### [facility] [address] [address] [address] Sea Pugh Hemoglobin (Bld) [Mass/Vol] 13.3 g/dL Critically low 14.0-18.0 [facility] Comment on above: Performed By: #### H STROPN, CMP, CRP #### [facility] [address] [address] [address] Sea Pugh IG # 0.04 10e3/ul Critically high 0.00-0.03 [facility] Comment on above: Performed By: #### H STROPN, CMP, CRP #### [facility] [address] [place] [address] Dr. Sea Pugh IG % 0.5 % Normal 0.0-0.5 [facility] Comment on above: Performed By: #### H STROPN, CMP, CRP #### [facility] [address] [address] [address] Sea Pugh LYMPH # 1.2 103/ul Normal 1.2-3.8 [facility] Comment on above: Performed By: #### H STROPN, CMP, CRP #### [facility] [address] [place] [address] Dr. Sea Pugh Lymphocytes/100 WBC (Bld) 14.7 % Critically low 20.5-60.0 [facility] Comment on above: Performed By: #### H STROPN, CMP, CRP #### [facility] [address] [place] [address] Dr. Sea Pugh MANUAL DIFF REQ NO Normal [facility] Comment on above: Performed By: #### H STROPN, CMP, CRP #### [facility] [address] [place] [address] Dr. Sea Pugh MCH (RBC) [Entitic mass] 29.6 pg Normal 25.9-34.0 [facility] Comment on above: Performed By: #### H STROPN, CMP, CRP #### [facility] [address] [place] [address] Dr. Sea Pugh MCHC (RBC) [Mass/Vol] 35.8 g/dL Critically high 29.9-35.2 [facility] Comment on above: Performed By: #### H STROPN, CMP, CRP #### [facility] [address] [place] [address] Dr. Sea Pugh MCV (RBC) [Entitic vol] 82.9 fL Normal 80.0-94.0 [facility] Comment on above: Performed By: #### H STROPN, CMP, CRP #### [facility] [address] [place] [address] Dr. Sea Pugh MONO # 0.7 103/ul Normal 0.3-0.8 [facility] Comment on above: Performed By: #### H STROPN, CMP, CRP #### [facility] [address] [place] [address] Dr. Sea Pugh Monocytes/100 WBC (Bld) 9.4 % Normal 1.7-12.0 [facility] Comment on above: Performed By: #### H STROPN, CMP, CRP #### [facility] [address] [place] [address] Dr. Sea Pugh NEUT # 5.9 103/ul Normal 1.4-6.5 [facility] Comment on above: Performed By: #### H STROPN, CMP, CRP #### [facility] [address] [place] [address] Dr. Sea Pugh Neutrophils/100 WBC (Bld) 74.3 % Normal 43.0-75.0 [facility] Comment on above: Performed By: #### H STROPN, CMP, CRP #### [facility] [address] [place] [address] Dr. Sea Pugh Platelet mean volume (Bld) [Entitic vol] 9.4 fL Critically low 9.5-13.5 [facility] Comment on above: Performed By: #### H STROPN, CMP, CRP #### [facility] [address] [place] [address] Dr. Sea Pugh PLT 215 103/ul Normal 150-450 [facility] Comment on above: Performed By: #### H STROPN, CMP, CRP #### [facility] [address] [address] [address] Sea Pugh RBC 4.49 106/ul Critically low 4.70-6.10 [facility] Comment on above: Performed By: #### H STROPN, CMP, CRP #### [facility] [address] [address] [address] Sea Pugh WBC 7.9 103/ul Normal 4.0-11.0 [facility] Comment on above: Performed By: #### H STROPN, CMP, CRP #### [facility] [address] [address] [address] Sea Pugh [facility]24 SARS-CoV-2 (COVID-19) RNA [place]+probe Ql (Unsp spec) Not detected Normal NOT DETECTED [facility] Comment on above: Result Comment: When diagnostic [...] for this test is supported by the [place] of Health and Human Service's declaration that [...] used). Performed By: #### D DIM #### [facility] [address] [address] [address] Sea Pugh POINT OF CARE GLUCOSEon 03-24 Glucose [Mass/Vol] 134 mg/dL Critically high 74-106 T [facility] Comment on above: Performed By: #### D DIM #### [facility] [address] [address] [address] Sea Pugh PROF CHEM 8 (BAS METB)on Anion gap [Moles/Vol] 15.3 mmol/L Normal [facility] Comment on above: Performed By: #### B MP ####[facility] [address] [address]DrMook Pugh Calcium [Mass/Vol] 8.9 mg/dL Normal 8.5-10.1 [facility] Comment on above: Performed By: #### B MP ####[facility] [address] [address]Dr. Sea Pugh Chloride [Moles/Vol] 101 mmol/L Normal 98-107 [facility] Comment on above: Performed By: #### B MP ####[facility] [address] [address]Dr. Sea Pugh CO2 [Moles/Vol] 25.5 mmol/L Normal 21.0-32.0 [facility] Comment on above: Performed By: #### B MP ####[facility] [address] [address]Dr. Sea Pugh Creatinine [Mass/Vol] 1.09 mg/dL Normal 0.70-1.30 [facility] Comment on above: Performed By: #### B MP ####[facility] [address] [address]DrMook Pugh EGFR-AF PALAUAN >60 Normal >=60 [facility] Comment on above: Performed By: #### B MP ####[facility] [address] [id number] Pugh EGFR-NON AF PALAUAN >60 Normal >=60 [facility] Comment on above: Performed By: #### B MP ####[facility] [address] [address]DrMook Pugh Glucose [Mass/Vol] 150 mg/dL Critically high 74-106 [facility] Comment on above: Performed By: #### B MP ####[facility] [address] [place], [place] [address]Mg. Sea Pugh Potassium [Moles/Vol] 3.8 mmol/L Normal 3.5-5.1 [facility] Comment on above: Performed By: #### B MP ####[facility] [address] [place], [place] [address]Ij. Sea Pugh Sodium [Moles/Vol] 138 mmol/L Normal 136-145 [facility] Comment on above: Performed By: #### B MP ####[facility] [address] [place], [place] [address]Qv. Sea Pugh Urea nitrogen [Mass/Vol] 11.0 mg/dL Normal 7.0-18.0 [facility] Comment on above: Performed By: #### B MP ####[facility] [address] [id number]. Sea Pugh Urea nitrogen/Creatinine [Mass ratio] 10.1 mg/mg Normal [facility] Comment on above: Performed By: #### B MP ####[facility] [address] [id number]. Sea Pugh TROPONIN, HIGH SENSITIVITYon 04-20-2022 HSTROP 136.3 pg/mL Critically high 4.0-76.1 [facility] Comment on above: Result Comment: CUT- OFF POINTS HAVE BEEN ESTABLISHED BASED ON THE FOURTH UNIVERSAL DEFINITIONS OF MYOCARDIAL INFARCTION. THE UPPER REFERENCE LIMIT (URL) OF TROPONIN, DEFINED THE 99TH PERCENTILE OF cTnI DISTRIBUTION IN A REFERENCE POPULATION, HAS BEEN CONFIRMED THE DECISION THRESHOLD FOR [place] DIAGNOSIS. Performed By: #### D DIM #### [facility] [address] [place], [place] [address] Dr. Sea Pugh HSTROP 141.1 pg/mL Critically high 4.0-76.1 [facility] Comment on above: Result Comment: CUT- OFF POINTS HAVE BEEN ESTABLISHED BASED ON THE FOURTH UNIVERSAL DEFINITIONS OF MYOCARDIAL INFARCTION. THE UPPER REFERENCE LIMIT (URL) OF TROPONIN, DEFINED THE 99TH PERCENTILE OF cTnI DISTRIBUTION IN A REFERENCE POPULATION, HAS BEEN CONFIRMED THE DECISION THRESHOLD FOR [place] DIAGNOSIS. Performed By: #### H STROPN #### [facility] [address] [address] [address] Sea Pugh CARDIAC SRINIVASAN ADMITon 023 CK [Catalytic activity/Vol] 266 U/L Normal 39-308 [facility] Comment on above: Performed By: #### B DIANA, DOUGIEDM ####[facility] [address] [id number]. Sea Pugh CK.MB [Mass/Vol] 4.18 ng/mL Critically high <=3.60 [facility] Comment on above: Performed By: #### B DIANA, DOUGIEDM ####[facility] [address] [address]Dr. Sea Pugh HSTROP 32.5 pg/mL Normal 4.0-76.1 [facility] Comment on above: Result Comment: CUT- OFF POINTS HAVE BEEN ESTABLISHED BASED ON THE FOURTH UNIVERSAL DEFINITIONS OF MYOCARDIAL INFARCTION. THE UPPER REFERENCE LIMIT (URL) OF TROPONIN, DEFINED THE 99TH PERCENTILE OF cTnI DISTRIBUTION IN A REFERENCE POPULATION, HAS BEEN CONFIRMED THE DECISION THRESHOLD FOR [place] DIAGNOSIS. Performed By: #### B DIANA, SANJEEV ####[facility] [address] [id number]. Sea Pugh RAMONE 241 ng/mL Critically high 16-96 [facility] Comment on above: Performed By: #### B DIANA, DOUGIEDM ####[facility] [address] [id number]. Sea Pugh CBC AUTO DIFFon 04-19-2022 BASO # 0.0 103/ul Normal 0.0-0.1 [facility] Comment on above: Performed By: #### C BC #### [facility] [address] [address] [address] Sea Pugh Basophils/100 WBC (Bld) 0.3 % Normal 0.2-2.0 [facility] Comment on above: Performed By: #### C BC #### [facility] [address] [address] [address] Sea Pugh EO # 0.2 103/ul Normal 0.0-0.7 [facility] Comment on above: Performed By: #### C BC #### [facility] [address] [address] [address] Sea Pugh Eosinophils/100 WBC (Bld) 1.4 % Normal 0.9-7.0 [facility] Comment on above: Performed By: #### C BC #### [facility] [address] [place] [address] Dr. Sea Pugh Erythrocyte distribution width (RBC) [Ratio] 13.5 % Normal 11.0-15.0 [facility] Comment on above: Performed By: #### C BC #### [facility] [address] [place] [address] Dr. Sea Pugh Hematocrit (Bld) [Volume fraction] 37.5 % Critically low 42.0-54.0 [facility] Comment on above: Performed By: #### C BC #### [facility] [address] [place] [address] Dr. Sea Pugh Hemoglobin (Bld) [Mass/Vol] 13.4 g/dL Critically low 14.0-18.0 [facility] Comment on above: Performed By: #### C BC #### [facility] [address] [place] [address] Dr. Sea Pugh IG # 0.08 10e3/ul Critically high 0.00-0.03 [facility] Comment on above: Performed By: #### C BC #### [facility] [address] [place] [address] Dr. Sea Pugh IG % 0.7 % Critically high 0.0-0.5 [facility] Comment on above: Performed By: #### C BC #### [facility] [address] [place] [address] Dr. Sea Pugh LYMPH # 1.1 103/ul Critically low 1.2-3.8 [facility] Comment on above: Performed By: #### C BC #### [facility] [address] [place] [address] Dr. Sea Pugh Lymphocytes/100 WBC (Bld) 8.7 % Critically low 20.5-60.0 [facility] Comment on above: Performed By: #### C BC #### [facility] [address] [place] [address] Dr. Sea Pugh MANUAL DIFF REQ NO Normal [facility] Comment on above: Performed By: #### C BC #### [facility] [address] [place] [address] Dr. Sea Pugh MCH (RBC) [Entitic mass] 30.0 pg Normal 25.9-34.0 [facility] Comment on above: Performed By: #### C BC #### [facility] [address] [place] [address] Dr. Sea Pugh MCHC (RBC) [Mass/Vol] 35.7 g/dL Critically high 29.9-35.2 [facility] Comment on above: Performed By: #### C BC #### [facility] [address] [place] [address] Dr. Sea Pugh MCV (RBC) [Entitic vol] 84.1 fL Normal 80.0-94.0 [facility] Comment on above: Performed By: #### C BC #### [facility] [address] [place] [address] Dr. Sea Pugh MONO # 0.8 103/ul Normal 0.3-0.8 [facility] Comment on above: Performed By: #### C BC #### [facility] [address] [place] [address] Dr. Sea Pugh Monocytes/100 WBC (Bld) 6.8 % Normal 1.7-12.0 [facility] Comment on above: Performed By: #### C BC #### [facility] [address] [place] [address] Dr. Sea Pugh NEUT # 10.0 103/ul Critically high 1.4-6.5 [facility] Comment on above: Performed By: #### C BC #### [facility] [address] [place] [address] Dr. Sea Pugh Neutrophils/100 WBC (Bld) 82.1 % Critically high 43.0-75.0 [facility] Comment on above: Performed By: #### C BC #### [facility] [address] [address] [address] Sea Pugh Platelet mean volume (Bld) [Entitic vol] 9.2 fL Critically low 9.5-13.5 [facility] Comment on above: Performed By: #### C BC #### [facility] [address] [address] [address] Sea Pugh PLT 203 103/ul Normal 150-450 [facility] Comment on above: Performed By: #### C BC #### [facility] [address] [address] [address] Sea Pugh RBC 4.46 106/ul Critically low 4.70-6.10 [facility] Comment on above: Performed By: #### C BC #### [facility] [address] [address] [address] Sea Pugh WBC 12.1 103/ul Critically high 4.0-11.0 [facility] Comment on above: Performed By: #### C BC #### [facility] [address] [address] [address] CSPINE WO CONon [...] REINA GOMEZ Date: 2022-04-19 20:22 Normal [facility] CT STROKE HEAD WOon 04-19-[address] [...] by: OBI MIDDLETON Date: 2022-04-19 20:08 Normal [facility] CTA CHEST WO W CONon 023 [...] by: RIC MOON Date: 2022-04-19 21:52 Normal [facility] D-DIMERon 04-19-2022 D-DIMER 2.01 mg/L FEU Critically high <=0.59 [facility] Comment on above: Performed By: #### D DIM #### [facility] [address] [address] [address] Sea Pugh D-DIMER COMMENTS SEE BELOW Normal [facility] Comment on above: Result Comment: Incr [...] hospitalization. Performed By: #### D DIM #### [facility] [address] [address] [address] Sea Pugh PROF CHEM 8 (BAS METB)on Anion gap [Moles/Vol] 19.2 mmol/L Normal [facility] Comment on above: Performed By: #### B SANJEEV ORTIZ ####[facility] [address] [id number] Pugh Calcium [Mass/Vol] 9.1 mg/dL Normal 8.5-10.1 [facility] Comment on above: Performed By: #### B SANJEEV ORTIZ ####[facility] [address] [id number] Pugh Chloride [Moles/Vol] 98 mmol/L Normal 98-107 [facility] Comment on above: Performed By: #### B DOUGIE ORTIZDM ####[facility] [address] [id number] Pugh CO2 [Moles/Vol] 21.4 mmol/L Normal 21.0-32.0 [facility] Comment on above: Performed By: #### B DIANA, SANJEEV ####[facility] [address] [address]Dr. Sea Pugh Creatinine [Mass/Vol] 1.45 mg/dL Critically high 0.70-1.30 [facility] Comment on above: Performed By: #### B DIANA, SANJEEV ####[facility] [address] [place], [place] [address]Dr. Sea Pugh EGFR-AF PALAUAN 58 mL/min/1.73m2 Critically low >=60 [facility] Comment on above: Performed By: #### B DIANA, SANJEEV ####[facility] [address] [place], [place] [address]Dr. Sea Pugh EGFR-NON AF PALAUAN 47 mL/min/1.73m2 Critically low >=60 [facility] Comment on above: Performed By: #### SANJEEV Martins MP ####[facility] [address] [place], [place] [address]Dr. Sea Pugh Glucose [Mass/Vol] 221 mg/dL Critically high 74-106 [facility] Comment on above: Performed By: #### SANJEEV Martins MP ####[facility] [address] [place], [place] [address]Dr. Sea Pugh Potassium [Moles/Vol] 3.6 mmol/L Normal 3.5-5.1 [facility] Comment on above: Performed By: #### Lakshmi ORTIZ, SANJEEV ####[facility] [address] [place], [place] [address]Dr. Sea Pugh Sodium [Moles/Vol] 135 mmol/L Critically low 136-145 [facility] Comment on above: Performed By: #### B SANJEEV ORTIZ ####[facility] [address] [place], [place] [address]Dr. Sea Pugh Urea nitrogen [Mass/Vol] 12.0 mg/dL Normal 7.0-18.0 [facility] Comment on above: Performed By: #### SANJEEV Martins MP ####[facility] [address] [address]Dr. Sea Pugh Urea nitrogen/Creatinine [Mass ratio] 8.3 mg/mg Normal [facility] Comment on above: Performed By: #### B SANJEEV ORTIZ ####[facility] [address] [address]Dr. Sea Pugh XR CHEST 1 Von 04-19-2022 XR CHEST 1 V EXAMINATION: XR CHES T 1 V HISTORY: Left arm weakness and tingling. 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 COMPARISON: 09/22/2021 portable chest TECHNIQUE: Portable chest FINDINGS: The lung parenchyma is free of consolidation or infiltrate. No pneumothorax or pleural effusion. The cardiac, mediastinal and hilar contours are normal. The visualized osseous structures exhibit no gross abnormality. IMPRESSION: No acute cardiopulmonary abnormality. Electronically authenticated by: REINA GOMEZ Date: 2022-04-19 20:12 Normal [facility] XR MODIFIED BARIUM SWALLOWon 12-20-2021 XR [...] by: REINA GO Date: 2021-12-20 10:49 Normal [facility] CARDIAC SRINIVASAN 3-6on 2 CK [Catalytic activity/Vol] 63 U/L Normal 39-308 [facility] Comment on above: Performed By: #### C MREP ####[facility] [address] [address]DrMook Pugh CK.MB [Mass/Vol] 1.00 ng/mL Normal <=3.60 [facility] Comment on above: Performed By: #### C MREP ####[facility] [address] [address]DrMook Pugh HSTROP 7.1 pg/mL Normal 4.0-76.1 [facility] Comment on above: Result Comment: CUT- OFF POINTS HAVE BEEN ESTABLISHED BASED ON THE FOURTH UNIVERSAL DEFINITIONS OF MYOCARDIAL INFARCTION. THE UPPER REFERENCE LIMIT (URL) OF TROPONIN, DEFINED THE 99TH PERCENTILE OF cTnI DISTRIBUTION IN A REFERENCE POPULATION, HAS BEEN CONFIRMED THE DECISION THRESHOLD FOR [place] DIAGNOSIS. Performed By: #### C MREP ####[facility] [address] [place], [place] [address]XiDr. Sea Pugh CARDIAC SRINIVASAN ADMITon 022 CK [Catalytic activity/Vol] 66 U/L Normal 39-308 [facility] Comment on above: Performed By: #### D DIM #### [facility] [address] [address] [address] Sea Pugh CK.MB [Mass/Vol] 0.93 ng/mL Normal <=3.60 [facility] Comment on above: Performed By: #### D DIM #### [facility] [address] [place] [address] Dr. Sea Pugh HSTROP 8.2 pg/mL Normal 4.0-76.1 [facility] Comment on above: Result Comment: CUT- OFF POINTS HAVE BEEN ESTABLISHED BASED ON THE FOURTH UNIVERSAL DEFINITIONS OF MYOCARDIAL INFARCTION. THE UPPER REFERENCE LIMIT (URL) OF TROPONIN, DEFINED THE 99TH PERCENTILE OF cTnI DISTRIBUTION IN A REFERENCE POPULATION, HAS BEEN CONFIRMED THE DECISION THRESHOLD FOR [place] DIAGNOSIS. Performed By: #### D DIM #### [facility] [address] [place] [address] Dr. Sea Pugh RAMONE 62 ng/mL Normal 16-96 [facility] Comment on above: Performed By: #### D DIM #### [facility] [address] [address] [address] Sea Pugh CBC AUTO DIFFon 12-06-2021 BASO # 0.0 103/ul Normal 0.0-0.1 [facility] Comment on above: Performed By: #### D DIM #### [facility] [address] [address] [address] Sea Pugh Basophils/100 WBC (Bld) 0.3 % Normal 0.2-2.0 [facility] Comment on above: Performed By: #### D DIM #### [facility] [address] [address] [address] Sea Pugh EO # 0.5 103/ul Normal 0.0-0.7 [facility] Comment on above: Performed By: #### D DIM #### [facility] [address] [address] [address] Sea Pugh Eosinophils/100 WBC (Bld) 5.4 % Normal 0.9-7.0 [facility] Comment on above: Performed By: #### D DIM #### [facility] [address] [place] [address] Dr. Sea Pugh Erythrocyte distribution width (RBC) [Ratio] 13.7 % Normal 11.0-15.0 [facility] Comment on above: Performed By: #### D DIM #### [facility] [address] [place] [address] Dr. Sea Pugh Hematocrit (Bld) [Volume fraction] 34.9 % Critically low 42.0-54.0 [facility] Comment on above: Performed By: #### D DIM #### [facility] [address] [place] [address] Dr. Sea Pugh Hemoglobin (Bld) [Mass/Vol] 12.2 g/dL Critically low 14.0-18.0 [facility] Comment on above: Performed By: #### D DIM #### [facility] [address] [place] [address] Dr. Sea Pugh IG # 0.07 10e3/ul Critically high 0.00-0.03 [facility] Comment on above: Performed By: #### D DIM #### [facility] [address] [place] [address] Dr. Sea Pugh IG % 0.7 % Critically high 0.0-0.5 [facility] Comment on above: Performed By: #### D DIM #### [facility] [address] [place] [address] Dr. Sea Pugh LYMPH # 1.3 103/ul Normal 1.2-3.8 [facility] Comment on above: Performed By: #### D DIM #### [facility] [address] [address] [address] Sea Pugh Lymphocytes/100 WBC (Bld) 13.5 % Critically low 20.5-60.0 [facility] Comment on above: Performed By: #### D DIM #### [facility] [address] [address] [address] Sea Pugh MANUAL DIFF REQ NO Normal [facility] Comment on above: Performed By: #### D DIM #### [facility] [address] [address] [address] Sea Pugh MCH (RBC) [Entitic mass] 30.5 pg Normal 25.9-34.0 [facility] Comment on above: Performed By: #### D DIM #### [facility] [address] [place] [address] Dr. Sea Pugh MCHC (RBC) [Mass/Vol] 35.0 g/dL Normal 29.9-35.2 [facility] Comment on above: Performed By: #### D DIM #### [facility] [address] [address] [address] Sea Pugh MCV (RBC) [Entitic vol] 87.3 fL Normal 80.0-94.0 [facility] Comment on above: Performed By: #### D DIM #### [facility] [address] [place] [address] Dr. Sea Pugh MONO # 1.3 103/ul Critically high 0.3-0.8 [facility] Comment on above: Performed By: #### D DIM #### [facility] [address] [address] [address] Sea Pugh Monocytes/100 WBC (Bld) 12.9 % Critically high 1.7-12.0 [facility] Comment on above: Performed By: #### D DIM #### [facility] [address] [address] [address] Sea Pugh NEUT # 6.7 103/ul Critically high 1.4-6.5 [facility] Comment on above: Performed By: #### D DIM #### [facility] [address] [address] [address] Sea Pugh Neutrophils/100 WBC (Bld) 67.2 % Normal 43.0-75.0 [facility] Comment on above: Performed By: #### D DIM #### [facility] [address] [address] [address] Sea Pugh Platelet mean volume (Bld) [Entitic vol] 9.7 fL Normal 9.5-13.5 [facility] Comment on above: Performed By: #### D DIM #### [facility] [address] [address] [address] Sea Pugh PLT 226 103/ul Normal 150-450 [facility] Comment on above: Performed By: #### D DIM #### [facility] [address] [place] [address] Dr. Sea Pugh RBC 4.00 106/ul Critically low 4.70-6.10 [facility] Comment on above: Performed By: #### D DIM #### [facility] [id number] Sea Pugh WBC 10.0 103/ul Normal 4.0-11.0 [facility] Comment on above: Performed By: #### D DIM #### [facility] [address] [place], [place] [id number] Dr. Sea Pugh CTA CHEST WO W [...] OSITO CUELLO Date: 2021-12-06 01:29 Normal [facility] D-DIMERon 12-06-2021 D-DIMER 1.11 mg/L FEU Critically high <=0.59 [facility] Comment on above: Performed By: #### D DIM #### [facility] [address] [address] [address] Sea Pugh D-DIMER COMMENTS SEE BELOW Normal [facility] Comment on above: Result Comment: Incr [...] hospitalization. Performed By: #### D DIM #### [facility] [address] [address] [address] Sea Pugh PROF CHEM 8 (BAS METB)on Anion gap [Moles/Vol] 9.5 mmol/L Normal [facility] Comment on above: Performed By: #### H STROPN, CMP, CRP #### [facility] [address] [address] [address] Sea Pugh Calcium [Mass/Vol] 8.6 mg/dL Normal 8.5-10.1 [facility] Comment on above: Performed By: #### H STROPN, CMP, CRP #### [facility] [address] [address] [address] Sea Pugh Chloride [Moles/Vol] 100 mmol/L Normal 98-107 [facility] Comment on above: Performed By: #### H STROPN, CMP, CRP #### [facility] [address] [address] [address] Sea Pugh CO2 [Moles/Vol] 25.8 mmol/L Normal 21.0-32.0 [facility] Comment on above: Performed By: #### H STROPN, CMP, CRP #### [facility] [address] [address] [address] Sea Pugh Creatinine [Mass/Vol] 1.12 mg/dL Normal 0.70-1.30 [facility] Comment on above: Performed By: #### H STROPN, CMP, CRP #### [facility] [address] [address] [address] Sea Pugh EGFR-AF PALAUAN >60 Normal >=60 [facility] Comment on above: Performed By: #### H STROPN, CMP, CRP #### [facility] [address] [address] [address] Sea Pugh EGFR-NON AF PALAUAN >60 Normal >=60 [facility] Comment on above: Performed By: #### H STROPN, CMP, CRP #### [facility] [address] [address] [address] Sea Pugh Glucose [Mass/Vol] 201 mg/dL Critically high 74-106 [facility] Comment on above: Performed By: #### H STROPN, CMP, CRP #### [facility] [address] [address] [address] Sea Pugh Potassium [Moles/Vol] 3.3 mmol/L Critically low 3.5-5.1 [facility] Comment on above: Performed By: #### H STROPN, CMP, CRP #### [facility] [address] [address] [address] Sea Pugh Sodium [Moles/Vol] 132 mmol/L Critically low 136-145 [facility] Comment on above: Performed By: #### H STROPN, CMP, CRP #### [facility] [address] [address] [address] Sea Pugh Urea nitrogen [Mass/Vol] 16.0 mg/dL Normal 7.0-18.0 [facility] Comment on above: Performed By: #### H STROPN, CMP, CRP #### [facility] [address] [address] [address] Sea Pugh Urea nitrogen/Creatinine [Mass ratio] 14.3 mg/mg Normal [facility] Comment on above: Performed By: #### H STROPN, CMP, CRP #### [facility] [address] [address] [address] Sea Pugh Basic Metabolic Panelon 11-21 Anion gap [Moles/Vol] 12 mmol/L 9 - 17 mmol/L [employer] Calcium [Mass/Vol] 8.3 mg/dL Low 8.6 - 10. 4 mg/dL [facility] Chloride [Moles/Vol] 100 mmol/L 98 - 10 7 mmol/L [facility] CO2 [Moles/Vol] 21 mmol/L 20 - 31 mmol/L [facility] Creatinine [Mass/Vol] 0.69 mg/dL Low 0.7 - 1.2 mg/dL [facility] GFR >60 60 - PI NF mL/min [facility] GFR Non- >60 60 - PINF mL/min [facility] GFR/1.73 sq M.predicted MDRD (S/P/Bld) [Vol rate/Area] [facility] Comment on above: Average GFR for 70 o r more years old: 75 mL/min/1.73sq m Chronic Kidney Disease: <60 mL/min/1.73sq m Kidney failure: <15 mL/min/1.73sq m eGFR calculated using average adult body mass. Additional eGFR calculator available at: http://www.TowerMetriX.Fermentalg/multiple_crcl_2012.htm Glucose [Mass/Vol] 138 mg/dL High 70 - 99 mg/dL [facility] Interpretation and review of laboratory results Abnormal [facility] Potassium [Moles/Vol] 4.0 mmol/L 3.7 - 5.3 mmol/L [facility] Sodium [Moles/Vol] 133 mmol/L Low 135 - 144 mmol/L [facility] Urea nitrogen (BldV) [Mass/Vol] 12 mg/dL 8 - 23 mg/dL [facility] Basic Metabolic Profon 12-04 (cont.) Normal [facility] Comment on above: Result Comment: Aver age GFR for 70 or more years old: 75 mL/min/1.73sq m Chronic Kidney Disease: <60 mL/min/1.73sq m Kidney failure: <15 mL/min/1.73sq m eGFR calculated using average adult body mass. Additional eGFR calculator available at: http://www.Fly6/multiple_crcl_2012.htm Performed By: #### DALE KINNEY, CDP #### [facility] [address] [place] [address] Periodontal Assistant: Afshin Mansfield MD Anion gap [Moles/Vol] 12 mmol/L Normal 9-17 [facility] Comment on above: Performed By: #### DALE KINNEY, CDP #### [facility] [address] [place] [address] Periodontal Assistant: Afshin Mansfield MD Calcium [Mass/Vol] 8.3 mg/dL Low 8.6-10.4 [facility] Comment on above: Performed By: #### DALE KINNEY, CDP #### [facility] [address] [place] [address] Periodontal Assistant: Afshin Mansfield MD Chloride [Moles/Vol] 100 mmol/L Normal 98-107 [facility] Comment on above: Performed By: #### DALE KINNEY, CDP #### [facility] [address] [place] [address] [phone] Periodontal Assistant: Afshin Mansfield MD CO2 [Moles/Vol] 21 mmol/L Normal 20-31 [facility] Comment on above: Performed By: #### I OCSUNIL BMP, CDP #### [facility] [employer] [address] [place] [address] Periodontal Assistant: Afshin Mansfield MD Creatinine [Mass/Vol] 0.69 mg/dL Low 0.70-1.20 [facility] Comment on above: Performed By: #### I OCAL, BMP, CDP #### [facility] [address] [place] [address] Periodontal Assistant: Afshin Mansfield MD GFR, Amer >60 Normal >60 [facility] Comment on above: Performed By: #### I OCSUNIL BMP, CDP #### [facility] [employer] [address] [place] [address] 03562 Periodontal Assistant: Afshin Mansfield MD GFR,non Amer >60 Normal >60 [facility] Comment on above: Performed By: #### I OCSUNIL BMP, CDP #### [facility] [employer] [address] [place] [address] 8[address] Periodontal Assistant: Afshin Mansfield MD Glucose [Mass/Vol] 138 mg/dL High 70-99 [facility] Comment on above: Performed By: #### I OCSUNIL BMP, CDP #### [facility] [employer] [address] [place] [address] 7[address]31 Periodontal Assistant: Afshin Mansfield MD Potassium [Moles/Vol] 4.0 mmol/L Normal 3.7-5.3 [facility] Comment on above: Performed By: #### I OCSUNIL, BMP, CDP #### [facility] [address] [place] [address] 0101[address] Periodontal Assistant: Afshin Mansfield MD Sodium [Moles/Vol] 133 mmol/L Low 135-144 [facility] Comment on above: Performed By: #### I OCDALE BARBER, CDP #### [facility] [address], [place] [phone] Periodontal Assistant: Afshin Mansfield MD Urea nitrogen [Mass/Vol] 12 mg/dL Normal 8-23 [facility] Comment on above: Performed By: #### I OCDALE BARBER, CDP #### [facility] [address], [place] [phone] Periodontal Assistant: Afshin Mansfield MD CBC with Auto Differentialon 12-04-2021 Absolute Eos # 0.64 High [facility] Absolute Immature Granulocyte 0.06 [facility] Absolute Lymph # 1.09 Low [facility] Absolute Caroline # 1.29 High [facility] Basophils (Bld) [#/Vol] 0.04 10*3/uL [facility] Basophils/100 WBC (Bld) 0 % 0 - 2 % [facility] Eosinophils/100 WBC (Bld) 6 % High 1 - 4 % [facility] Hematocrit (Bld) [Volume fraction] 36.1 % Low 40.7 - 50.3 % [facility] Hemoglobin (Bld) [Mass/Vol] 12.6 g/dL Low 13 - 17 g/dL [facility] Immature granulocytes/100 WBC (Bld) 1 % High 0 [facility] Interpretation and review of laboratory results Abnormal [facility] Lymphocytes/100 WBC (Bld) 9 % Low 24 - 43 % [facility] MCH (RBC) [Entitic mass] 30.1 pg 25.2 - 33.5 pg [facility] MCHC (RBC) [Mass/Vol] 34.9 g/dL High 28.4 - 34.8 g/dL [facility] MCV (RBC) [Entitic vol] 86.2 fL 82.6 - 102.9 fL [facility] Monocytes/100 WBC (Bld) 11 % 3 - 12 % [facility] NRBC Automated 0.0 0.0 per 100 WBC [facility] Platelet distribution width (Bld) [Ratio] 13.6 % 11.8 - 14.4 % [facility] Platelet mean volume (Bld) [Entitic vol] 9.8 fL 8.1 - 13.5 fL [facility] Platelets (Bld) [#/Vol] 212 10*3/uL [facility] RBC (Bld) [#/Vol] 4.19 10*6/uL Low 4.21 - 5.7 7 m/uL [facility] Segmented neutrophils/100 WBC (Bld) 73 % High 36 - 65 % [facility] Segs Absolute 8.59 High [facility] WBC (Bld) [#/Vol] 11.7 10*3/uL High [facility] CBC with Diffon 12-04-2021 Abs. Basophil 0.04 k/uL Normal 0.00-0.20 [facility] Comment on above: Performed By: #### I ADLE REYES, CDP #### [facility] [employer] [address] [place] [address] Periodontal Assistant: Afshin Mansfield MD Abs.Imm.Granulocyte 0.06 k/uL Normal 0.00-0.30 [facility] Comment on above: Performed By: #### DALE KINNEY, CDP #### [facility] [address] [place] [address] Periodontal Assistant: Afshin Mansfield MD Abs.Neutrophil (Seg) 8.59 k/uL High 1.50-8.10 [facility] Comment on above: Performed By: #### DALE KINNEY, CDP #### [facility] [address] [place] [address] Periodontal Assistant: Afshin Mansfield MD Basophils/100 WBC (Bld) 0 % Normal 0-2 [facility] Comment on above: Performed By: #### DALE KINNEY, CDP #### [facility] [address] [place] [address] Periodontal Assistant: Afshin Mansfield MD Eosinophils (Bld) [#/Vol] 0.64 10*3/uL High 0.00-0.44 [facility] Comment on above: Performed By: #### DALE KINNEY, CDP #### [facility] [address] [place] [address] Periodontal Assistant: Afshin Mansfield MD Eosinophils/100 WBC (Bld) 6 % High 1-4 [facility] Comment on above: Performed By: #### DALE KINNEY, CDP #### [facility] [address] [place] [address] Periodontal Assistant: Afshin Mansfield MD Erythrocyte distribution width (RBC) [Ratio] 13.6 % Normal 11.8-14.4 [facility] Comment on above: Performed By: #### DALE KINNEY, CDP #### [facility] [employer] [address] [place] [address] Periodontal Assistant: Afshin Mansfield MD Hematocrit (Bld) [Volume fraction] 36.1 % Low 40.7-50.3 [facility] Comment on above: Performed By: #### DALE KINNEY, CDP #### [facility] [employer] [address] [place] [address]34 Periodontal Assistant: Afshin Mansfield MD Hemoglobin (Bld) [Mass/Vol] 12.6 g/dL Low 13.0-17.0 [facility] Comment on above: Performed By: #### DALE KINNEY, CDP #### [facility] [address] [place] [address]256 Periodontal Assistant: Afshin Mansfield MD Immature granulocytes/100 WBC (Bld) 1 % High 0 [facility] Comment on above: Performed By: #### DALE KINNEY, CDP #### [facility] [address] [place] [address]82 Periodontal Assistant: Afshin Mansfield MD Lymphocytes (Bld) [#/Vol] 1.09 10*3/uL Low 1.10-3.70 [facility] Comment on above: Performed By: #### I DALE REYES, CDP #### [facility] [employer] [address] [place] [address] 06491 Periodontal Assistant: Afshin Mansfield MD Lymphocytes/100 WBC (Bld) 9 % Low 24-43 [facility] Comment on above: Performed By: #### I DALE REYES, CDP #### [facility] [employer] [address] [place] [address] 01470 Periodontal Assistant: Afshin Mansfield MD MCH (RBC) [Entitic mass] 30.1 pg Normal 25.2-33.5 [facility] Comment on above: Performed By: #### DALE KINNEY, CDP #### [facility] [employer] [address] [place] [address] 97465 Periodontal Assistant: Afshin Mansfield MD MCHC (RBC) [Mass/Vol] 34.9 g/dL High 28.4-34.8 [facility] Comment on above: Performed By: #### DALE KINNEY, CDP #### [facility] [employer] [address] [place] [address] 47404 Periodontal Assistant: Afshin Mansfield MD MCV (RBC) [Entitic vol] 86.2 fL Normal 82.6-102.9 [facility] Comment on above: Performed By: #### DALE KINNEY, CDP #### [facility] [employer] [address] [place] [address] 58238 Periodontal Assistant: Afshin Mansfield MD Monocytes (Bld) [#/Vol] 1.29 10*3/uL High 0.10-1.20 [facility] Comment on above: Performed By: #### DALE KINNEY, CDP #### [facility] [employer] [address] [place] [address] 65557 Periodontal Assistant: Afshin Mansfield MD Monocytes/100 WBC (Bld) 11 % Normal 3-12 [facility] Comment on above: Performed By: #### I OCSUNIL BMP, CDP #### [facility] [employer] [address] [place] [address] 41013 Periodontal Assistant: Afshin Mansfield MD Neutrophil (Seg) 73 % High 36-65 [facility] Comment on above: Performed By: #### I OCSUNIL, BMP, CDP #### [facility] [employer] [address] [place] [address] 86833 Periodontal Assistant: Afsihn Mansfield MD NRBC Automated 0.0 per 100 WBC Normal 0.0 [facility] Comment on above: Performed By: #### I OCDALE BARBER, CDP #### [facility] [employer] [address] [place] [address] 86212 Periodontal Assistant: Afshin Mansfield MD Platelet mean volume (Bld) [Entitic vol] 9.8 fL Normal 8.1-13.5 [facility] Comment on above: Performed By: #### I OCDALE BARBER, CDP #### [facility] [employer] [address] [place] [address] 31558 Periodontal Assistant: Afshin Mansfield MD Platelets (Bld) [#/Vol] 212 10*3/uL Normal 138-453 [facility] Comment on above: Performed By: #### I DALE REYES, CDP #### [address] [address] Periodontal Assistant: Afshin Mansfield MD RBC (Bld) [#/Vol] 4.19 10*6/uL Low 4.21-5.77 [facility] Comment on above: Performed By: #### I OCDALE BARBER, CDP #### [facility] [employer] [address] [place] [address] 80156 Periodontal Assistant: Afshin Mansfield MD WBC (Bld) [#/Vol] 11.7 10*3/uL High 3.5-11.3 [facility] Comment on above: Performed By: #### I OCAL, BMP, CDP #### [facility] [address] [place] [address] Periodontal Assistant: Afshin Mansfield MD POC Glucose Fingerstickon Glucose [Mass/Vol] 110 mg/dL 75 - 110 mg/dL [facility] Basic Metabolic Panelon 11-21 Anion gap [Moles/Vol] 14 mmol/L 9 - 17 mmol/L [facility] [employer] Calcium [Mass/Vol] 8.0 mg/dL Low 8.6 - 10. 4 mg/dL [facility] [employer] Chloride [Moles/Vol] 101 mmol/L 98 - 10 7 mmol/L [facility] [employer] CO2 [Moles/Vol] 18 mmol/L Low 20 - 31 mmol/L [facility] Creatinine [Mass/Vol] 0.67 mg/dL Low 0.7 - 1.2 mg/dL [facility] GFR >60 60 - PI NF mL/min [facility] GFR Non- >60 60 - PINF mL/min [facility] GFR/1.73 sq M.predicted MDRD (S/P/Bld) [Vol rate/Area] [facility] Comment on above: Average GFR for 70 o r more years old: 75 mL/min/1.73sq m Chronic Kidney Disease: <60 mL/min/1.73sq m Kidney failure: <15 mL/min/1.73sq m eGFR calculated using average adult body mass. Additional eGFR calculator available at: http://www.TowerMetriX.Fermentalg/multiple_crcl_2012.htm Glucose [Mass/Vol] 156 mg/dL High 70 - 99 mg/dL [facility] Interpretation and review of laboratory results Abnormal [facility] Potassium [Moles/Vol] 3.9 mmol/L 3.7 - 5.3 mmol/L [facility] Sodium [Moles/Vol] 133 mmol/L Low 135 - 144 mmol/L [facility] Urea nitrogen (BldV) [Mass/Vol] 12 mg/dL 8 - 23 mg/dL [facility] Basic Metabolic Profon 12-03 (cont.) Normal [facility] Comment on above: Result Comment: Aver age GFR for 70 or more years old: 75 mL/min/1.73sq m Chronic Kidney Disease: <60 mL/min/1.73sq m Kidney failure: <15 mL/min/1.73sq m eGFR calculated using average adult body mass. Additional eGFR calculator available at: http://www.Fly6/multiple_crcl_2012.htm Performed By: #### I OCDALE BARBER, CDP #### [facility] [address] [place] [address] 76013 Periodontal Assistant: Afshin Mansfield MD Anion gap [Moles/Vol] 14 mmol/L Normal 9-17 [facility] Comment on above: Performed By: #### I OCDALE BARBER, CDP #### [facility] [address] [place] [address] 47720 Periodontal Assistant: Afshin Mansfield MD Calcium [Mass/Vol] 8.0 mg/dL Low 8.6-10.4 [facility] Comment on above: Performed By: #### I OCSUNIL BMP, CDP #### [facility] [address] [place] [address] 06318 Periodontal Assistant: Afshin Mansfield MD Chloride [Moles/Vol] 101 mmol/L Normal 98-107 [facility] Comment on above: Performed By: #### I OCSUNIL BMP, CDP #### [facility] [address] [place] [address] 86141 Periodontal Assistant: Afshin Mansfield MD CO2 [Moles/Vol] 18 mmol/L Low 20-31 [facility] Comment on above: Performed By: #### I OCSUNIL BMP, CDP #### [facility] [address] [place] [address] 23879 Periodontal Assistant: Afshin Mansfield MD Creatinine [Mass/Vol] 0.67 mg/dL Low 0.70-1.20 [facility] Comment on above: Performed By: #### I DALE REYES, CDP #### [facility] [employer] [address] [place] [address] 63412 Periodontal Assistant: Afshin Mansfield MD GFR, Amer >60 Normal >60 [facility] Comment on above: Performed By: #### I OCSUNIL BMP, CDP #### [facility] [address] [place] [address] 50663 Periodontal Assistant: Afshin Mansfield MD GFR,non Amer >60 Normal >60 [facility] Comment on above: Performed By: #### I DALE REYES, CDP #### [facility] [employer] [address] [place] [address] 04350 Periodontal Assistant: Afshin Mansfield MD Glucose [Mass/Vol] 156 mg/dL High 70-99 [facility] Comment on above: Performed By: #### I OCDALE BARBER, CDP #### [facility] [employer] [address] [place] [address] 81465 Periodontal Assistant: Afshin Mansfield MD Potassium [Moles/Vol] 3.9 mmol/L Normal 3.7-5.3 [facility] Comment on above: Performed By: #### I DALE REYES, CDP #### [facility] [address] [place] [address] 55616 Periodontal Assistant: Afshin Mansfield MD Sodium [Moles/Vol] 133 mmol/L Low 135-144 [facility] Comment on above: Performed By: #### I OCSUNIL BMP, CDP #### [facility] [employer] [address] [place] [address] 99803 Periodontal Assistant: Afshin Mansfield MD Urea nitrogen [Mass/Vol] 12 mg/dL Normal 8-23 [facility] Comment on above: Performed By: #### I OCDALE BARBER, CDP #### [facility] [address] [id number] Periodontal Assistant: Afshin Mansfield MD CBC with Auto Differentialon 12-03-2021 Absolute Eos # 0.54 High [facility] Absolute Immature Granulocyte 0.07 [facility] Absolute Lymph # 1.07 Low [facility] Absolute Caroline # 1.20 [facility] Basophils (Bld) [#/Vol] 0.03 10*3/uL [facility] Basophils/100 WBC (Bld) 0 % 0 - 2 % [facility] Eosinophils/100 WBC (Bld) 5 % High 1 - 4 % [facility] Hematocrit (Bld) [Volume fraction] 37.0 % Low 40.7 - 50.3 % [facility] Hemoglobin (Bld) [Mass/Vol] 13.1 g/dL 13 - 17 g/dL [facility] Immature granulocytes/100 WBC (Bld) 1 % High 0 [facility] Interpretation and review of laboratory results Abnormal [facility] Lymphocytes/100 WBC (Bld) 10 % Low 24 - 43 % [facility] MCH (RBC) [Entitic mass] 30.8 pg 25.2 - 33.5 pg [facility] MCHC (RBC) [Mass/Vol] 35.4 g/dL High 28.4 - 34.8 g/dL [facility] MCV (RBC) [Entitic vol] 87.1 fL 82.6 - 102.9 fL [facility] Monocytes/100 WBC (Bld) 11 % 3 - 12 % [facility] NRBC Automated 0.0 0.0 per 100 WBC [facility] Platelet distribution width (Bld) [Ratio] 13.7 % 11.8 - 14.4 % [facility] Platelet mean volume (Bld) [Entitic vol] 10.6 fL 8.1 - 13.5 fL [facility] Platelets (Bld) [#/Vol] 223 10*3/uL [facility] RBC (Bld) [#/Vol] 4.25 10*6/uL 4.21 - 5.7 7 m/uL [facility] Segmented neutrophils/100 WBC (Bld) 73 % High 36 - 65 % [facility] Segs Absolute 8.06 [facility] WBC (Bld) [#/Vol] 11.0 10*3/uL [facility] CBC with Diffon 12-03-2021 Abs. Basophil 0.03 k/uL Normal 0.00-0.20 [facility] Comment on above: Performed By: #### I OCSUNIL BMP, CDP #### [facility] [address] [place] [address] 28381 Periodontal Assistant: Afshin Mansfield MD Abs.Imm.Granulocyte 0.07 k/uL Normal 0.00-0.30 [facility] Comment on above: Performed By: #### I OCSUNIL BMP, CDP #### [facility]Install[facility] [address] [place] [address] 40416 Periodontal Assistant: Afshin Mansfield MD Abs.Neutrophil (Seg) 8.06 k/uL Normal 1.50-8.10 [facility] Comment on above: Performed By: #### I OCSUNIL BMP, CDP #### [facility] [address] [place] [address] 38382 Periodontal Assistant: Afshin Mansfield MD Basophils/100 WBC (Bld) 0 % Normal 0-2 [facility] Comment on above: Performed By: #### I OCAL, BMP, CDP #### [facility] [address] [place] [address] 20986 Periodontal Assistant: Afshin Mansfield MD Eosinophils (Bld) [#/Vol] 0.54 10*3/uL High 0.00-0.44 [facility] Comment on above: Performed By: #### I OCSUNIL BMP, CDP #### [facility] [address] [place] [address] 65795 Periodontal Assistant: Afshin Mansfield MD Eosinophils/100 WBC (Bld) 5 % High 1-4 [facility] Comment on above: Performed By: #### DALE KINNEY, CDP #### [facility] [address] [place] [address] 19069 Periodontal Assistant: Afshin Mansfield MD Erythrocyte distribution width (RBC) [Ratio] 13.7 % Normal 11.8-14.4 [facility] Comment on above: Performed By: #### DALE KINNEY, CDP #### [facility] [address] [place] [address] 29371 Periodontal Assistant: Afshin Mansfield MD Hematocrit (Bld) [Volume fraction] 37.0 % Low 40.7-50.3 [facility] Comment on above: Performed By: #### DALE KINNEY, CDP #### [facility] [address] [place] [address] 77750 Periodontal Assistant: Afshin Mansfield MD Hemoglobin (Bld) [Mass/Vol] 13.1 g/dL Normal 13.0-17.0 [facility] Comment on above: Performed By: #### DALE KINNEY, CDP #### [facility] CenterInstallShield Software Corporation [address] [place] [address] Periodontal Assistant: Afshin Mansfield MD Immature granulocytes/100 WBC (Bld) 1 % High 0 [facility] Comment on above: Performed By: #### DALE KINNEY, CDP #### [employer] [address] [place] [address] Periodontal Assistant: Afshin Mansfield MD Lymphocytes (Bld) [#/Vol] 1.07 10*3/uL Low 1.10-3.70 [facility] Comment on above: Performed By: #### DALE KINNEY, CDP #### [employer] [address] [place] [address] Periodontal Assistant: Afshin Mansfield MD Lymphocytes/100 WBC (Bld) 10 % Low 24-43 [facility] Comment on above: Performed By: #### I OCDALE BARBER, CDP #### [facility] [employer] [address] [place] [address] Periodontal Assistant: Afshin Mansfield MD MCH (RBC) [Entitic mass] 30.8 pg Normal 25.2-33.5 [facility] Comment on above: Performed By: #### I OCDALE BARBER, CDP #### [facility] [employer] [address] [place] [address] Periodontal Assistant: Afshin Mansfield MD MCHC (RBC) [Mass/Vol] 35.4 g/dL High 28.4-34.8 [facility] Comment on above: Performed By: #### DALE KINNEY, CDP #### [address] [address] Periodontal Assistant: Afshin Mansfield MD MCV (RBC) [Entitic vol] 87.1 fL Normal 82.6-102.9 [facility] Comment on above: Performed By: #### DALE KINNEY, CDP #### [address] [address] Periodontal Assistant: Afshin Mansfield MD Monocytes (Bld) [#/Vol] 1.20 10*3/uL Normal 0.10-1.20 [facility] Comment on above: Performed By: #### I DALE REYES, CDP #### [facility] [employer] [address] [place] [address] Periodontal Assistant: Afshin Mansfield MD Monocytes/100 WBC (Bld) 11 % Normal 3-12 [facility] Comment on above: Performed By: #### I OCDALE BARBER, CDP #### [facility] [employer] [address] [place] [address] 76269 Periodontal Assistant: Afshin Mansfield MD Neutrophil (Seg) 73 % High 36-65 [facility] Comment on above: Performed By: #### I DALE REYES, CDP #### [facility] [employer] [address] [place] [address] Periodontal Assistant: Afshin Mansfield MD NRBC Automated 0.0 per 100 WBC Normal 0.0 [facility] Comment on above: Performed By: #### I DALE REYES, CDP #### [facility] [employer] [address] [place] [address]346 Periodontal Assistant: Afshin Mansfield MD Platelet mean volume (Bld) [Entitic vol] 10.6 fL Normal 8.1-13.5 [facility] Comment on above: Performed By: #### DALE KINNEY, CDP #### [facility] [employer] [address] [place] [address] Periodontal Assistant: Afshin Mansfield MD Platelets (Bld) [#/Vol] 223 10*3/uL Normal 138-453 [facility] Comment on above: Performed By: #### DALE KINNEY, CDP #### [facility] [employer] [address] [place] [address] Periodontal Assistant: Afshin Mansfield MD RBC (Bld) [#/Vol] 4.25 10*6/uL Normal 4.21-5.77 [facility] Comment on above: Performed By: #### DALE KINNEY, CDP #### [facility] [employer] [address] [place] [address]47 Periodontal Assistant: Afshin Mansfield MD WBC (Bld) [#/Vol] 11.0 10*3/uL Normal 3.5-11.3 [facility] Comment on above: Performed By: #### I DALE REYES, CDP #### [facility] [employer] [address] [place] [address]13 Periodontal Assistant: Afshin Mansfield MD Cult,Bloodon 12-03-2021 Cult,Blood Specimen Description .BLOOD Special Requests L HAND 20ML Culture NO GROWTH 5 DAYS Report Status FINAL 12/03/2021 Normal [facility] Comment on above: Performed By: #### B C #### [facility] [address] [place] [address] Periodontal Assistant: Afshin Mansfield MD Cult,Blood Specimen Description .BLOOD Special Requests r hand 20ml Culture NO GROWTH 5 DAYS Report Status FINAL 12/03/2021 Normal [facility] Comment on above: Performed By: #### I OCAL, BMP, CDP #### [facility] [address] [place], [place] [id number] Periodontal Assistant: Afshin Mansfield MD Culture, Blood 1on 2 Bacteria identified Cx Nom (Unsp spec) NO GROWTH 5 DAYS [facility] SECNative [facility]ITALTenable Network Security HEALTH Special Requests L HAND 20ML [facility] SEC OURS [employer] Specimen Description .BLOOD [facility] SEC[facility]ITALTenable Network Security HEALTH [facility]ITALTenable Network Security HEALTH Bacteria identified Cx Nom (Unsp spec) NO GROWTH 5 DAYS [facility] SECNative [facility]ALT[facility] Network Security HEALTH Special Requests r hand 20ml B[facility] SEC [employer] Specimen Description .BLOOD [facility]ITALTenable Network Security HEALTH [facility] SECStudyEdge EKG 12 LeadOrdered By: Unkno wn Result on 12-03-2021 Atrial Rate 90 BPM [facility] SECStudyEdge Q-T Interval 422 ms [facility] [employer] HEALTH QRS Duration 88 ms [facility] SEC[facility]PITALMarketBrief QTc Calculation (Bazett) 516 ms [facility] [employer] HEALTH R [place] 23 degrees [facility] SECPharmacoPhotonics HEALTH T [place] 48 degrees [facility] SECStudyEdge Ventricular Rate 90 BPM [facility] SECO [facility]ITALT[facility] Network Security HEALTH [facility]ITALTenable Network Security HEALTH EKG 12 Leadon 12-03-2021 Atrial flutter with variable block Premature supraventricular complexes and fusion complexes Low voltage QRS Inferior 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) Prolonged QT Abnormal ECG When compared with ECG of 02-DEC-2021 03:02, Junctional rhythm has replaced Atrial fibrillation ST no longer depressed in Inferior leads ST no longer depressed in Anterior leads [facility] STV MUSE Result, Unknown Provider - 12/03/2021 Atrial flutter with variable block Premature supraventricular complexes and fusion complexes Low voltage QRS Inferior 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) Prolonged QT Abnormal ECG When compared with ECG of 02-DEC-2021 03:02, Junctional rhythm has replaced Atrial fibrillation ST no longer depressed in Inferior leads ST no longer depressed in Anterior leads [facility] [employer] Work Phone: Osmolality, Urineon 12-04-19 22 Osmolality - Urine 670 mOsm/kg Normal 80-1300 [facility] Comment on above: Performed By: #### DALE KINNEY, CDP #### [facility] [address] [place] [address] Periodontal Assistant: Afshin Mansfield MD Osmolality, Ur 670 [facility] POC Glucose Fingerstickon Glucose [Mass/Vol] 151 mg/dL High 75 - 110 mg/dL [facility] Interpretation and review of laboratory results Abnormal [facility] Glucose [Mass/Vol] 172 mg/dL High 75 - 110 mg/dL [facility] Interpretation and review of laboratory results Abnormal [facility] Glucose [Mass/Vol] 160 mg/dL High 75 - 110 mg/dL [facility] Interpretation and review of laboratory results Abnormal [facility] SODIUM, URINE, RANDOMon 11-21 Sodium (U) [Moles/Vol] 154 mmol/L [facility] Comment on above: No normal range esta blished. [facility] Sodium, Random Uron 12-04-19 Sodium (U) [Moles/Vol] 154 mmol/L Normal [facility] Comment on above: Result Comment: No n ormal range established. Performed By: #### I DALE REYES, CDP #### [facility] [address] [place] [address] Periodontal Assistant: Afshin Mansfield MD EKG 12 LeadOrdered By: Huan Mayo on 12-02-2021 Atrial Rate 125 BPM [facility] [employer] Work Phone: Q-T Interval 322 ms [facility] [employer] Work Phone: QRS Duration 84 ms [facility] [employer] Work Phone: QTc Calculation (Bazett) 470 ms [facility] [employer] Work Phone: R [place] 14 degrees [facility] [employer] Work Phone: T [place] -59 degrees [facility] [employer] Work Phone: Ventricular Rate 128 BPM 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) ACUTE [place] / STEMI Consider right ventricular involvement in acute inferior infarct Abnormal ECG When compared with ECG of 02-DEC-2021 03:02, T wave inversion no longer evident in Inferior leads [facility] STV Huan Galo MD - 12/02/2021 Atrial fibrillation with rapid ventricular response with premature ventricular or aberrantly conducted complexes Low voltage QRS 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) ACUTE [place] / STEMI Consider right ventricular involvement in acute inferior infarct Abnormal ECG When compared with ECG of 02-DEC-2021 03:02, T wave inversion no longer evident in Inferior leads [facility] [employer] Work Phone: Magnesiumon 12-02-2021 Magnesium [Mass/Vol] 2.0 mg/dL Normal 1.6-2.6 [facility] Comment on above: Performed By: #### I DALE REYES, CDP #### [facility] [address] [place], [place] [id number] Periodontal Assistant: Afshin Mansfield MD Magnesium [Mass/Vol] 2.0 mg/dL 1.6 - 2 .6 mg/dL [employer] No Panel Informationon 12-02 [facility] [employer] POC Glucose Fingerstickon Glucose [Mass/Vol] 164 mg/dL High 75 - 110 mg/dL [facility] Interpretation and review of laboratory results Abnormal [facility] Glucose [Mass/Vol] 220 mg/dL High 75 - 110 mg/dL [facility] Interpretation and review of laboratory results Abnormal [facility] Glucose [Mass/Vol] 197 mg/dL High 75 - 110 mg/dL [facility] Interpretation and review of laboratory results Abnormal [facility] Glucose [Mass/Vol] 188 mg/dL High 75 - 110 mg/dL [facility] Interpretation and review of laboratory results Abnormal [facility] Phosphoruson 12-02-2021 Phosphate [Mass/Vol] 2.8 mg/dL 2.5 - 4 .5 mg/dL [facility] Phosphorus, Inorg.on 022 Phosphorus, Inorg. 2.8 mg/dL Normal 2.5-4.5 [facility] Comment on above: Performed By: #### I DALE REYES, CDP #### [facility] [address] [place] [address] Periodontal Assistant: Afshin Mansfield MD Troponinon 12-02-2021 Troponin, High Sens 15 ng/L Normal 0-22 [facility] Comment on above: Result Comment: High Sensitivity Troponin values cannot be compared with other Troponin methodologies. Patients with high levels of Biotin oral intake (i.e >5mg/day) may have falsely decreased Troponin levels. Samples collected within 8 hours of biotin intake may require additional information for diagnosis. Performed By: #### DALE KINNEY, CDP #### [facility] [address] [place] [address] Periodontal Assistant: Afshin Mansfield MD Troponin, High Sensitivity 15 ng/L 0 - 22 ng/L [facility] Comment on above: High Sensitivity Troponin values cannot be compared with other Troponin methodologies. Patients with high levels of Biotin oral intake (i.e >5mg/day) may have falsely decreased Troponin levels. Samples collected within 8 hours of biotin intake may require additional information for diagnosis. [facility] [employer] Troponin, High Sens 15 ng/L Normal 0-22 [facility] Comment on above: Result Comment: High Sensitivity Troponin values cannot be compared with other Troponin methodologies. Patients with high levels of Biotin oral intake (i.e >5mg/day) may have falsely decreased Troponin levels. Samples collected within 8 hours of biotin intake may require additional information for diagnosis. Performed By: #### I OCAL, BMP, CDP #### [facility] CenterInstallShield Software Corporation [address] [place] [address] Periodontal Assistant: Afshin Mansfield MD Troponin, High Sensitivity 15 ng/L 0 - 22 ng/L [facility] [employer] Comment on above: High Sensitivity Troponin values cannot be compared with other Troponin methodologies. Patients with high levels of Biotin oral intake (i.e >5mg/day) may have falsely decreased Troponin levels. Samples collected within 8 hours of biotin intake may require additional information for diagnosis. [facility] [employer] Basic Metabolic Panelon 11-21 Anion gap [Moles/Vol] 11 mmol/L 9 - 17 mmol/L [facility] Calcium [Mass/Vol] 8.1 mg/dL Low 8.6 - 10. 4 mg/dL [facility] Chloride [Moles/Vol] 102 mmol/L 98 - 10 7 mmol/L [facility] CO2 [Moles/Vol] 19 mmol/L Low 20 - 31 mmol/L [facility] Creatinine [Mass/Vol] 0.76 mg/dL 0.7 - 1.2 mg/dL [facility] GFR >60 60 - PI NF mL/min App[employer] [facility] GFR Non- >60 60 - PINF mL/min Appifier [facility] GFR/1.73 sq M.predicted MDRD (S/P/Bld) [Vol rate/Area] [facility] Comment on above: Average GFR for 70 o r more years old: 75 mL/min/1.73sq m Chronic Kidney Disease: <60 mL/min/1.73sq m Kidney failure: <15 mL/min/1.73sq m eGFR calculated using average adult body mass. Additional eGFR calculator available at: http://www.[email or web address]/multiple_crcl_2012.htm Glucose [Mass/Vol] 176 mg/dL High 70 - 99 mg/dL [facility] Interpretation and review of laboratory results Abnormal [facility] Potassium [Moles/Vol] 4.2 mmol/L 3.7 - 5.3 mmol/L [facility] Sodium [Moles/Vol] 132 mmol/L Low 135 - 144 mmol/L [facility] Urea nitrogen (BldV) [Mass/Vol] 16 mg/dL 8 - 23 mg/dL [facility] Basic Metabolic Profon 12-01 (cont.) Normal [facility] Comment on above: Result Comment: Aver age GFR for 70 or more years old: 75 mL/min/1.73sq m Chronic Kidney Disease: <60 mL/min/1.73sq m Kidney failure: <15 mL/min/1.73sq m eGFR calculated using average adult body mass. Additional eGFR calculator available at: http://www.[email or web address]/multiple_crcl_2012.htm Performed By: #### C DP, BMP #### [facility] CenterInstallShield Software Corporation [address] [place] [address] Periodontal Assistant: Afshin Mansfield MD Anion gap [Moles/Vol] 11 mmol/L Normal 9-17 [facility] Comment on above: Performed By: #### C DP, BMP #### [facility] CenterInstallSh[facility] Software Corporation [address] [place] [address] [phone] Periodontal Assistant: Afshin Mansfield MD Calcium [Mass/Vol] 8.1 mg/dL Low 8.6-10.4 [facility] Comment on above: Performed By: #### C DP, BMP #### [facility] CenterInstallShield Software Corporation [address] [place] [address] [id number] Periodontal Assistant: Afshin Mansfield MD Chloride [Moles/Vol] 102 mmol/L Normal 98-107 [facility] Comment on above: Performed By: #### C DP, BMP #### [address] [address] Periodontal Assistant: Afshin Mansfield MD CO2 [Moles/Vol] 19 mmol/L Low 20-31 [facility] Comment on above: Performed By: #### C DP, BMP #### [address] [address] Periodontal Assistant: Afshin Mansfield MD Creatinine [Mass/Vol] 0.76 mg/dL Normal 0.70-1.20 [facility] Comment on above: Performed By: #### C DP, BMP #### [address] [address] Periodontal Assistant: Afshin Mansfield MD GFR, Amer >60 Normal >60 [facility] Comment on above: Performed By: #### C DP, BMP #### [address] [address] Periodontal Assistant: Afshin Mansfield MD GFR,non Amer >60 Normal >60 [facility] Comment on above: Performed By: #### C DP, BMP #### [address] [address] Periodontal Assistant: Afshin Mansfield MD Glucose [Mass/Vol] 176 mg/dL High 70-99 [facility] Comment on above: Performed By: #### C DP, BMP #### [facility] [employer] [address] [place] [address] Periodontal Assistant: Afshin Mansfield MD Potassium [Moles/Vol] 4.2 mmol/L Normal 3.7-5.3 [facility] Comment on above: Performed By: #### C DP, BMP #### [address] [address] Periodontal Assistant: Afshin Mansfield MD Sodium [Moles/Vol] 132 mmol/L Low 135-144 [facility] Comment on above: Performed By: #### C DP, BMP #### [facility] [address] [place], [place] [phone] Periodontal Assistant: Afshin Mansfield MD Urea nitrogen [Mass/Vol] 16 mg/dL Normal 8-23 [facility] Comment on above: Performed By: #### C DP, BMP #### [facility] [address] [place], [place] [phone] Periodontal Assistant: Afshin Mansfield MD CBC with Auto Differentialon 12-01-2021 Absolute Eos # 0.00 [facility] Absolute Immature Granulocyte 0.00 [facility] Absolute Lymph # 1.35 [facility] Absolute Caroline # 1.80 High [facility] Basophils (Bld) [#/Vol] 0.00 10*3/uL [facility] Basophils/100 WBC (Bld) 0 % 0 - 2 % [facility] Eosinophils/100 WBC (Bld) 0 % Low 1 - 4 % [facility] Hematocrit (Bld) [Volume fraction] 45.2 % 40.7 - 50.3 % [facility] Hemoglobin (Bld) [Mass/Vol] 15.6 g/dL 13 - 17 g/dL [facility] Immature granulocytes/100 WBC (Bld) 0 % 0 [facility] Interpretation and review of laboratory results Abnormal [facility] Lymphocytes/100 WBC (Bld) 9 % Low 24 - 44 % [facility] MCH (RBC) [Entitic mass] 30.5 pg 25.2 - 33.5 pg [facility] MCHC (RBC) [Mass/Vol] 34.5 g/dL 28.4 - 34.8 g/dL [facility] MCV (RBC) [Entitic vol] 88.5 fL 82.6 - 102.9 fL [facility] Monocytes/100 WBC (Bld) 12 % High 1 - 7 % [facility] Morphology Callum (Bld) [Interp] Normal [facility] NRBC Automated 0.0 0.0 per 100 WBC [facility] Platelet distribution width (Bld) [Ratio] 13.8 % 11.8 - 14.4 % [facility] Platelet mean volume (Bld) [Entitic vol] 9.6 fL 8.1 - 13.5 fL [facility] Platelets (Bld) [#/Vol] 235 10*3/uL [facility] RBC (Bld) [#/Vol] 5.11 10*6/uL 4.21 - 5.7 7 m/uL [facility] Segmented neutrophils/100 WBC (Bld) 79 % High 36 - 66 % [facility] Segs Absolute 11.85 High [facility] WBC (Bld) [#/Vol] 15.0 10*3/uL High [facility] CBC with Diffon 12-01-2021 Abs. Basophil 0.00 k/uL Normal 0.0-0.2 [facility] Comment on above: Performed By: #### C DP, BMP #### [place] [address] Periodontal Assistant: Afshin Mansfield MD Abs.Imm.Granulocyte 0.00 k/uL Normal 0.00-0.30 [facility] Comment on above: Performed By: #### C DP, BMP #### [facility] [address] [place], [place] [id number] Periodontal Assistant: Afshin Mansfield MD Abs.Neutrophil (Seg) 11.85 k/uL High 1.8-7.7 [facility] Comment on above: Performed By: #### C DP, BMP #### [facility] [address] [place] [address] Periodontal Assistant: Afshin Mansfield MD Basophils/100 WBC (Bld) 0 % Normal 0-2 [facility] Comment on above: Performed By: #### C DP, BMP #### [address] [address] Periodontal Assistant: Afshin Mansfield MD Eosinophils (Bld) [#/Vol] 0.00 10*3/uL Normal 0.0-0.4 [facility] Comment on above: Performed By: #### C DP, BMP #### [address] [address] Periodontal Assistant: Afshin Mansfield MD Eosinophils/100 WBC (Bld) 0 % Low 1-4 [facility] Comment on above: Performed By: #### C DP, BMP #### [address] [address] Periodontal Assistant: Afshin Mansfield MD Immature granulocytes/100 WBC (Bld) 0 % Normal 0 [facility] Comment on above: Performed By: #### C DP, BMP #### [address] [address] Periodontal Assistant: Afshin Mansfield MD Lymphocytes (Bld) [#/Vol] 1.35 10*3/uL Normal 1.0-4.8 [facility] Comment on above: Performed By: #### C DP, BMP #### [address] [address] Periodontal Assistant: Afshin Mansfield MD Lymphocytes/100 WBC (Bld) 9 % Low 24-44 [facility] Comment on above: Performed By: #### C DP, BMP #### [address] [address] Periodontal Assistant: Afshin Mansfield MD Monocytes (Bld) [#/Vol] 1.80 10*3/uL High 0.1-0.8 [facility] Comment on above: Performed By: #### C DP, BMP #### [facility] [employer] [address] [place] [address] Periodontal Assistant: Afshin Mansfield MD Monocytes/100 WBC (Bld) 12 % High 1-7 [facility] Comment on above: Performed By: #### C DP, BMP #### [facility] [employer] [address] [place] [address] Periodontal Assistant: Afshin Mansfield MD Morphology Callum (Bld) [Interp] Normal Normal [facility] Comment on above: Performed By: #### C DP, BMP #### [address] [address] Periodontal Assistant: Afshin Mansfield MD Neutrophil (Seg) 79 % High 36-66 [facility] Comment on above: Performed By: #### C DP, BMP #### [facility] [employer] [address] [place] [address] Periodontal Assistant: Afshin Mansfield MD Erythrocyte distribution width (RBC) [Ratio] 13.8 % Normal 11.8-14.4 [facility] Comment on above: Performed By: #### C DP, BMP #### [address] [address] Periodontal Assistant: Afshin Mansfield MD Hematocrit (Bld) [Volume fraction] 45.2 % Normal 40.7-50.3 [facility] Comment on above: Performed By: #### C DP, BMP #### [address] [address] Periodontal Assistant: Afshin Mansfield MD Hemoglobin (Bld) [Mass/Vol] 15.6 g/dL Normal 13.0-17.0 [facility] Comment on above: Performed By: #### C DP, BMP #### [facility] [employer] [address] [place] [address] Periodontal Assistant: Afshin Mansfield MD MCH (RBC) [Entitic mass] 30.5 pg Normal 25.2-33.5 [facility] Comment on above: Performed By: #### C DP, BMP #### [address] [address] Periodontal Assistant: Afshin Mansfield MD MCHC (RBC) [Mass/Vol] 34.5 g/dL Normal 28.4-34.8 [facility] Comment on above: Performed By: #### C DP, BMP #### [address] [address] Periodontal Assistant: Afshin Mansfield MD MCV (RBC) [Entitic vol] 88.5 fL Normal 82.6-102.9 [facility] Comment on above: Performed By: #### C DP, BMP #### [address] [address] Periodontal Assistant: Afshin Mansfield MD NRBC Automated 0.0 per 100 WBC Normal 0.0 [facility] Comment on above: Performed By: #### C DP, BMP #### [address] [address] Periodontal Assistant: Afshin Mansfield MD Platelet mean volume (Bld) [Entitic vol] 9.6 fL Normal 8.1-13.5 [facility] Comment on above: Performed By: #### C DP, BMP #### [address] [address] Periodontal Assistant: Afshin Mansfield MD Platelets (Bld) [#/Vol] 235 10*3/uL Normal 138-453 [facility] Comment on above: Performed By: #### C DP, BMP #### [address] [address] Periodontal Assistant: Afshin Mansfield MD RBC (Bld) [#/Vol] 5.11 10*6/uL Normal 4.21-5.77 [facility] Comment on above: Performed By: #### C DP, BMP #### [address] [address] Periodontal Assistant: Afshin Mansfield MD WBC (Bld) [#/Vol] 15.0 10*3/uL High 3.5-11.3 [facility] Comment on above: Performed By: #### C DP, BMP #### [facility] [address] [place] [address] Periodontal Assistant: Afshin Mansfield MD ECHO Complete 2D W Doppler W Coloron 12-01-2021 Transthoracic Echocardiography Report (TTE) Patient Name EDGAR Date of Study 11/30/2021 SHAHRZAD Date of 1945 Gender Male Age 76 year(s) Race Room Number 0122 Height: 73 inch, 185.42 cm Corporate ID [id number] Weight: 207 pounds, 93.9 kg # Patient Acct [id number] BSA: 2.18 m^2 BMI: 27.31 # kg/m^2 MR # [id number] [employer] Rosmery Walsh Interpreting Physician Vicki Rob Fellow Referring Nurse Practitioner Interpreting Referring Physician Yolie Cabrera Fellow Type of Study TTE procedure:2D Echocardiogram, M-Mode, Doppler, Color Doppler, Bubble Study. Procedure Date Date: 11/30/2021 Start: 02:35 PM Study Location: [facility] Technical Quality: Adequate visualization Indications:Stroke. History / [...] Height: 73 inch, 185.42 cm Corporate ID [id number] Weight: 207 pounds, 93.9 kg # Patient Acct [id number] BSA: 2.18 m^2 BMI: 27.31 # kg/m^2 MR # [id number] [employer] Rosmery Walsh Interpreting Physician Vicki Rob Fellow Referring Nurse Practitioner Interpreting Referring Physician Yolie Cabrera Fellow Type of Study TTE procedure:2D Echocardiogram, M-Mode, Doppler, Color Doppler, Bubble Study. Procedure Date Date: 11/30/2021 Start: 02:35 PM Study Location: [facility] Technical Quality: Adequate visualization Indications:Stroke. History / [...] Wall E' velocity:0.12 m/s Lateral Wall E/E':7.5 [facility] [employer] Work Phone: [facility] [employer] Work Phone: POC Glucose Fingerstickon Glucose [Mass/Vol] 132 mg/dL High 75 - 110 mg/dL [facility] [employer] [facility]CHILLIC[facility] Interpretation and review of laboratory results Abnormal [facility] Glucose [Mass/Vol] 129 mg/dL High 75 - 110 mg/dL [facility] Interpretation and review of laboratory results Abnormal [facility] Glucose [Mass/Vol] 369 mg/dL High 75 - 110 mg/dL [facility] Interpretation and review of laboratory results Abnormal [facility] Glucose [Mass/Vol] 196 mg/dL High 75 - 110 mg/dL [facility] Interpretation and review of laboratory results Abnormal [facility] Glucose [Mass/Vol] 181 mg/dL High 75 - 110 mg/dL [facility] Interpretation and review of laboratory results Abnormal [facility] Urinalysis w/ Microon 2021 Bilirubin, SemiQt,Ur Negative Normal NEG [facility] Comment on above: Performed By: #### U AMIC #### [facility] [employer] [address] [place] [phone] Periodontal Assistant: Afshin Mansfield MD Blood, Urine LARGE Abnormal NEG [facility] Comment on above: Performed By: #### U AMIC #### [facility] [employer] [address] [place] [address] [phone] Periodontal Assistant: Afshin Mansfield MD Casts 2 TO 5 HYALINE Normal 0-8 [facility] Comment on above: Result Comment: Refe rence range defined for non-centrifuged specimen. Performed By: #### U AMIC #### [facility] [employer] [address] [place] [address] Periodontal Assistant: Afshin Mansfield MD Clarity (U) Clear Normal CLEAR [facility] Comment on above: Performed By: #### U AMIC #### [address] [address] Periodontal Assistant: Afshin Mansfield MD Color (U) Yellow Normal YEL [facility] Comment on above: Performed By: #### U AMIC #### [address] [address] Periodontal Assistant: Afshin Mansfield MD Epithelial cells LM Ql (Urine sed) 0 TO 2 Normal 0-5 [facility] Comment on above: Performed By: #### U AMIC #### [address] [address] Periodontal Assistant: Afshin Mansfield MD Glucose Ql (U) Negative Normal NEG [facility] Comment on above: Performed By: #### U AMIC #### [address] [address] Periodontal Assistant: Afshin Mansfield MD Ketones Ql (U) TRACE Abnormal NEG [facility] Comment on above: Performed By: #### U AMIC #### [address] [address] Periodontal Assistant: Afshin Mansfield MD Leukocyte esterase Test strip Ql (U) Negative Normal NEG [facility] Comment on above: Performed By: #### U AMIC #### [address] [address] Periodontal Assistant: Afshin Mansfield MD Nitrite,Ur Negative Normal NEG [facility] Comment on above: Performed By: #### U AMIC #### [address] [address] Periodontal Assistant: Afshin Mansfield MD PH,Ur 5.5 Normal 5.0-8.0 [facility] Comment on above: Performed By: #### U AMIC #### [address] [address] Periodontal Assistant: Afshin Mansfield MD Protein Ql (U) TRACE Abnormal NEG [facility] Comment on above: Performed By: #### U AMIC #### [address] [address] Periodontal Assistant: Afshin Mansfield MD Spec. [place],Ur 1.031 High 1.005-1.030 [facility] Comment on above: Performed By: #### U AMIC #### [address] [address] Periodontal Assistant: Afshin Mansfield MD Urine RBC's 20 TO 50 Normal 0-4 [facility] Comment on above: Result Comment: Refe rence range defined for non-centrifuged specimen. Performed By: #### U AMIC #### [address] [address] Periodontal Assistant: Afshin Mansfield MD Urine WBC's 2 TO 5 Normal 0-5 [facility] Comment on above: Performed By: #### U AMIC #### [address] [address] Periodontal Assistant: Afshin Mansfield MD Urobilinogen,Ur Normal Normal NORM [facility] Comment on above: Performed By: #### U AMIC #### [address] [address] Periodontal Assistant: Afshin Mansfield MD Urinalysis with Microscopico n 12-01-2021 Bilirubin Urine Negative NEGATIVE [facility] [employer] Casts UA 2 TO 5 HYALINE Reference range defined for non-centrifuged specimen. [facility] [employer] Color, UA Yellow Yellow [facility] Epithelial Cells UA 0 TO 2 [facility] Glucose, Ur Negative NEGATIVE [facility] [employer] [facility] Interpretation and review of laboratory results Abnormal [facility] Ketones Ql (U) TRACE Abnormal NEGATIVE [facility] Leukocyte esterase Test strip Ql (U) Negative NEGATIVE [facility] Nitrite, Urine Negative NEGATIVE [facility] pH, UA 5.5 5 - 8 [facility] Protein, UA TRACE Abnormal NEGATIVE [facility] RBC, UA 20 TO 50 [facility] Comment on above: Reference range defi alisha for non-centrifuged specimen. Specific [place], UA 1.031 High 1.005 - 1.03 ULISES N [facility] Turbidity UA Clear Clear [facility] Urine Hgb LARGE Abnormal NEGATIVE [facility] Urobilinogen, Urine Normal Normal [facility] WBC, UA 2 TO 5 [facility] Basic Metabolic Panelon 09- Anion gap [Moles/Vol] 11 mmol/L 9 - 17 mmol/L [facility] Calcium [Mass/Vol] 7.7 mg/dL Low 8.6 - 10. 4 mg/dL [facility] Chloride [Moles/Vol] 102 mmol/L 98 - 10 7 mmol/L [facility] CO2 [Moles/Vol] 21 mmol/L 20 - 31 mmol/L [facility] Creatinine [Mass/Vol] 0.79 mg/dL 0.7 - 1.2 mg/dL [facility] GFR >60 60 - PI NF mL/min [facility] GFR Non- >60 60 - PINF mL/min [facility] GFR/1.73 sq M.predicted MDRD (S/P/Bld) [Vol rate/Area] [facility] Comment on above: Average GFR for 70 o r more years old: 75 mL/min/1.73sq m Chronic Kidney Disease: <60 mL/min/1.73sq m Kidney failure: <15 mL/min/1.73sq m eGFR calculated using average adult body mass. Additional eGFR calculator available at: http://www.TowerMetriX.Fermentalg/multiple_crcl_2011.htm Glucose [Mass/Vol] 196 mg/dL High 70 - 99 mg/dL [facility] Interpretation and review of laboratory results Abnormal [facility] Potassium [Moles/Vol] 4.5 mmol/L 3.7 - 5.3 mmol/L [facility] Sodium [Moles/Vol] 134 mmol/L Low 135 - 144 mmol/L [facility] Urea nitrogen (BldV) [Mass/Vol] 17 mg/dL 8 - 23 mg/dL [facility] Basic Metabolic Profon 11-30 Glucose [Mass/Vol] 196 mg/dL High 70-99 [facility] Comment on above: Performed By: #### C DAVEY HOLLINGSWORTH BMP #### [employer] [address] [place] [address] [phone] Periodontal Assistant: Afshin Mansfield MD (cont.) [facility] Comment on above: Result Comment: Aver age GFR for 70 or more years old: 75 mL/min/1.73sq m Chronic Kidney Disease: <60 mL/min/1.73sq m Kidney failure: <15 mL/min/1.73sq m eGFR calculated using average adult body mass. Additional eGFR calculator available at: http://www.Fly6/multiple_crcl_2011.htm Performed By: #### DAVEY PICHARDO BMP #### [employer] [address] [place] [address] [phone] Periodontal Assistant: Afshin Mansfield MD Anion gap [Moles/Vol] 11 mmol/L Normal 9-17 [facility] Comment on above: Performed By: #### C DARRICK GLYHGB, BMP #### [employer] [address] [place] [address] [phone] Periodontal Assistant: Afshin Mansfield MD Calcium [Mass/Vol] 7.7 mg/dL Low 8.6-10.4 [facility] Comment on above: Performed By: #### C DARRICK GLYHGB, BMP #### [employer] [address] [place] [address] [place] [address] Periodontal Assistant: Afshin Mansfield MD Chloride [Moles/Vol] 102 mmol/L Normal 98-107 [facility] Comment on above: Performed By: #### C BC, GLYHGB, BMP #### [facility] [address] [place] [address] Periodontal Assistant: Afshin Mansfield MD CO2 [Moles/Vol] 21 mmol/L Normal 20-31 [facility] Comment on above: Performed By: #### C BC, GLYHGB, BMP #### [facility] [address] [place] [address] Periodontal Assistant: Afshin Mansfield MD Creatinine [Mass/Vol] 0.79 mg/dL Normal 0.70-1.20 [facility] Comment on above: Performed By: #### C BC, GLYHGB, BMP #### [facility] [address] [place] [address] Periodontal Assistant: Afshin Mansfield MD GFR, Amer >60 Normal >60 [facility] Comment on above: Performed By: #### C BC, GLYHGB, BMP #### [facility] [address] [place] [address] Periodontal Assistant: Afshin Mansfield MD GFR,non Amer >60 Normal >60 [facility] Comment on above: Performed By: #### C BC, GLYHGB, BMP #### [facility] [address] [place] [address] Periodontal Assistant: Afshin Mansfield MD Potassium [Moles/Vol] 4.5 mmol/L Normal 3.7-5.3 [facility] Comment on above: Performed By: #### C BC, GLYHGB, BMP #### [facility] [address] [place] [address] Periodontal Assistant: Afshin Mansfield MD Sodium [Moles/Vol] 134 mmol/L Low 135-144 [facility] Comment on above: Performed By: #### C DAVEY HOLLINGSWORTH BMP #### [facility] [address] [place], [place] [phone] Periodontal Assistant: Afshin Mansfield MD Urea nitrogen [Mass/Vol] 17 mg/dL Normal 8-23 [facility] Comment on above: Performed By: #### C DARRICK GLYHGB, BMP #### [facility] [address] [place], [place] [phone] Periodontal Assistant: Afshin Mansfield MD CBC with Auto Differentialon 11-30-2021 Absolute Eos # [facility] Absolute Immature Granulocyte 0.12 [facility] Absolute Lymph # 1.09 Low [facility] Absolute Caroline # 1.40 High [facility] Basophils Absolute [facility] Basophils/100 WBC (Bld) 0 % 0 - 2 % [facility] Eosinophils/100 WBC (Bld) 0 % Low 1 - 4 % [facility] Hematocrit (Bld) [Volume fraction] 41.7 % 40.7 - 50.3 % [facility] Hemoglobin (Bld) [Mass/Vol] 13.9 g/dL 13 - 17 g/dL [facility] Immature granulocytes/100 WBC (Bld) 1 % High 0 [facility] Interpretation and review of laboratory results Abnormal [facility] Lymphocytes/100 WBC (Bld) 8 % Low 24 - 43 % [facility] MCH (RBC) [Entitic mass] 29.6 pg 25.2 - 33.5 pg [facility] MCHC (RBC) [Mass/Vol] 33.3 g/dL 28.4 - 34.8 g/dL [facility] MCV (RBC) [Entitic vol] 88.7 fL 82.6 - 102.9 fL [facility] Monocytes/100 WBC (Bld) 10 % 3 - 12 % [facility] NRBC Automated 0.0 0.0 per 100 WBC [facility] Platelet distribution width (Bld) [Ratio] 14.0 % 11.8 - 14.4 % [facility] Platelet mean volume (Bld) [Entitic vol] 10.2 fL 8.1 - 13.5 fL [facility] Platelets (Bld) [#/Vol] 230 10*3/uL [facility] RBC (Bld) [#/Vol] 4.70 10*6/uL 4.21 - 5.7 7 m/uL [facility] Segmented neutrophils/100 WBC (Bld) 81 % High 36 - 65 % [facility] Segs Absolute 11.07 High [facility] WBC (Bld) [#/Vol] 13.7 10*3/uL High [facility] CBC with Diffon 11-30-2021 Abs. Basophil <0.03 Normal 0.00-0.20 [facility] Comment on above: Performed By: #### C ALEKSEY HOLLINGSWORTHB, BMP #### [facility] [employer] [address] [place] [address] Periodontal Assistant: Afshin Mansfield MD Abs. Eosinophil <0.03 Normal 0.00-0.44 [facility] Comment on above: Performed By: #### C DAVEY HOLLINGSWORTH, BMP #### [employer] [address] [place] [address] Periodontal Assistant: Afshin Mansfield MD Abs.Imm.Granulocyte 0.12 k/uL Normal 0.00-0.30 [facility] Comment on above: Performed By: #### C LÓPEZ HOLLINGSWORTHHGB, BMP #### [facility] [address] [place] [address] Periodontal Assistant: Afshin Mansfiedl MD Abs.Neutrophil (Seg) 11.07 k/uL High 1.50-8.10 [facility] Comment on above: Performed By: #### LÓPEZ PICHARDOHGB, BMP #### [facility] [address] [place] [address] Periodontal Assistant: Afshin Mansfield MD Basophils/100 WBC (Bld) 0 % Normal 0-2 [facility] Comment on above: Performed By: #### C BC, GLYHGB, BMP #### [facility] [employer] [address] [place] [address] Periodontal Assistant: Afshin Mansfield MD Eosinophils/100 WBC (Bld) 0 % Low 1-4 [facility] Comment on above: Performed By: #### C BC, GLYHGB, BMP #### [facility] [address] [place] [address] Periodontal Assistant: Afshin Mansfield MD Erythrocyte distribution width (RBC) [Ratio] 14.0 % Normal 11.8-14.4 [facility] Comment on above: Performed By: #### C BC, GLYHGB, BMP #### [facility] [employer] [address] [place] [address] Periodontal Assistant: Afshin Mansfield MD Hematocrit (Bld) [Volume fraction] 41.7 % Normal 40.7-50.3 [facility] Comment on above: Performed By: #### C BC, GLYHGB, BMP #### [facility] [employer] [address] [place] [address] Periodontal Assistant: Afshin Mansfield MD Hemoglobin (Bld) [Mass/Vol] 13.9 g/dL Normal 13.0-17.0 [facility] Comment on above: Performed By: #### C BC, GLYHGB, BMP #### [facility] [employer] [address] [place] [address] Periodontal Assistant: Afshin Mansfield MD Immature granulocytes/100 WBC (Bld) 1 % High 0 [facility] Comment on above: Performed By: #### C BC, GLYHGB, BMP #### [facility] [address] [place] [address] Periodontal Assistant: Afshin Mansfield MD Lymphocytes (Bld) [#/Vol] 1.09 10*3/uL Low 1.10-3.70 [facility] Comment on above: Performed By: #### C DARRICK GLYHGB, BMP #### [address] [address] Periodontal Assistant: Afshin Mansfield MD Lymphocytes/100 WBC (Bld) 8 % Low 24-43 [facility] Comment on above: Performed By: #### C DARRICK GLYHGB, BMP #### [facility] [employer] [address] [place] [address] Periodontal Assistant: Afshin Mansfield MD MCH (RBC) [Entitic mass] 29.6 pg Normal 25.2-33.5 [facility] Comment on above: Performed By: #### Amara HOLLINGSWORTH GLYHGB, BMP #### [address] [address] Periodontal Assistant: Afshin Mansfield MD MCHC (RBC) [Mass/Vol] 33.3 g/dL Normal 28.4-34.8 [facility] Comment on above: Performed By: #### Amara HOLLINGSWORTH GLYHGB, BMP #### [facility] [employer] [address] [place] [address] Periodontal Assistant: Afshin Mansfield MD MCV (RBC) [Entitic vol] 88.7 fL Normal 82.6-102.9 [facility] Comment on above: Performed By: #### C DARRICK GLYHGB, BMP #### [facility] [employer] [address] [place] [address] Periodontal Assistant: Afshin Mansfield MD Monocytes (Bld) [#/Vol] 1.40 10*3/uL High 0.10-1.20 [facility] Comment on above: Performed By: #### Amara HOLLINGSWORTH GLYHGB, BMP #### [facility] [employer] [address] [place] [address] Periodontal Assistant: Afshin Mansfield MD Monocytes/100 WBC (Bld) 10 % Normal 3-12 [facility] Comment on above: Performed By: #### C BC, GLYHGB, BMP #### [address] [address] Periodontal Assistant: Afshin Mansfield MD Neutrophil (Seg) 81 % High 36-65 [facility] Comment on above: Performed By: #### C BC, GLYHGB, BMP #### [facility] [employer] [address] [place] [address] Periodontal Assistant: Afshin Mansfield MD NRBC Automated 0.0 per 100 WBC Normal 0.0 [facility] Comment on above: Performed By: #### C BC, GLYHGB, BMP #### [facility] [employer] [address] [place] [address] Periodontal Assistant: Afshin Mansfield MD Platelet mean volume (Bld) [Entitic vol] 10.2 fL Normal 8.1-13.5 [facility] Comment on above: Performed By: #### C BC, GLYHGB, BMP #### [address] [address] Periodontal Assistant: Afshin Mansfield MD Platelets (Bld) [#/Vol] 230 10*3/uL Normal 138-453 [facility] Comment on above: Performed By: #### C BC, GLYHGB, BMP #### [facility] [employer] [address] [place] [address] Periodontal Assistant: Afshin Mansfield MD RBC (Bld) [#/Vol] 4.70 10*6/uL Normal 4.21-5.77 [facility] Comment on above: Performed By: #### C BC, GLYHGB, BMP #### [facility] [employer] [address] [place] [address] Periodontal Assistant: Afshin Mansfield MD WBC (Bld) [#/Vol] 13.7 10*3/uL High 3.5-11.3 [facility] Comment on above: Performed By: #### C BC, GLYHGB, [facility] #### [facility] [address] [place] [address] Periodontal Assistant: Afshin Mansfield MD EKG 12 LeadOrdered By: Constance Rob on 11-30-2021 Atrial Rate 65 BPM [employer] Work Phone: P [place] 77 degrees [employer] Work Phone: P-R Interval 172 ms [employer] Work Phone: Q-T Interval 462 ms [employer] Work Phone: QRS Duration 84 ms [employer] Work Phone: QTc Calculation (Bazett) 480 ms [employer] Work Phone: R [place] 27 degrees [employer] Work Phone: T [place] 53 degrees [employer] Work Phone: Ventricular Rate 65 BPM [facility] [email or web address] Work Phone: [employer] Work Phone: EKG 12 Leadon 11-30-2021 Normal sinus rhythm Low voltage QRS Inferior infarct , age undetermined Abnormal ECG No previous ECGs available [facility] Vicki Dash MD - 11/30/2021 Normal sinus rhythm Low voltage QRS Inferior infarct , age undetermined Abnormal ECG No previous ECGs available [employer] Work Phone: POC Glucose Finger[employer] Glucose [Mass/Vol] 160 mg/dL High 75 - 110 mg/dL [employer] Interpretation and review of laboratory results Abnormal [employer] Glucose [Mass/Vol] 181 mg/dL High 75 - 110 mg/dL [employer] Interpretation and review of laboratory results Abnormal [employer] Glucose [Mass/Vol] 182 mg/dL High 75 - 110 mg/dL [facility] Interpretation and review of laboratory results Abnormal [facility] Basic Metabolic Panelon Anion gap [Moles/Vol] 12 mmol/L 9 - 17 mmol/L [facility] Calcium [Mass/Vol] 8.3 mg/dL Low 8.6 - 10. 4 mg/dL [facility] Chloride [Moles/Vol] 101 mmol/L 98 - 10 7 mmol/L [facility] CO2 [Moles/Vol] 20 mmol/L 20 - 31 mmol/L [facility] Creatinine [Mass/Vol] 0.89 mg/dL 0.7 - 1.2 mg/dL [facility] GFR >60 60 - PI NF mL/min [facility] GFR Non- >60 60 - PINF mL/min [facility] GFR/1.73 sq M.predicted MDRD (S/P/Bld) [Vol rate/Area] [facility] Comment on above: Average GFR for 70 o r more years old: 75 mL/min/1.73sq m Chronic Kidney Disease: <60 mL/min/1.73sq m Kidney failure: <15 mL/min/1.73sq m eGFR calculated using average adult body mass. Additional eGFR calculator available at: http://www.Fly6/multiple_crcl_2012.htm Glucose [Mass/Vol] 198 mg/dL High 70 - 99 mg/dL [facility] Interpretation and review of laboratory results Abnormal [facility] Potassium [Moles/Vol] 4.4 mmol/L 3.7 - 5.3 mmol/L [facility] Sodium [Moles/Vol] 133 mmol/L Low 135 - 144 mmol/L [facility] Urea nitrogen (BldV) [Mass/Vol] 14 mg/dL 8 - 23 mg/dL [facility] Basic Metabolic Profon 11-29 (cont.) Normal [facility] Comment on above: Result Comment: Aver age GFR for 70 or more years old: 75 mL/min/1.73sq m Chronic Kidney Disease: <60 mL/min/1.73sq m Kidney failure: <15 mL/min/1.73sq m eGFR calculated using average adult body mass. Additional eGFR calculator available at: http://www.Fly6/multiple_crcl_2012.htm Performed By: #### I OCDALE BARBER, CDP #### [facility] [employer] [address] [place] [address] Periodontal Assistant: Afshin Mansfield MD Anion gap [Moles/Vol] 12 mmol/L Normal 9-17 [facility] Comment on above: Performed By: #### I DALE REYES, CDP #### [employer] [address] [place] [address] Periodontal Assistant: Afshin Mansfield MD Calcium [Mass/Vol] 8.3 mg/dL Low 8.6-10.4 [facility] Comment on above: Performed By: #### I OCSUNIL BMP, CDP #### [facility] [address] [place] [address] Periodontal Assistant: Afshin Mansfield MD Chloride [Moles/Vol] 101 mmol/L Normal 98-107 [facility] Comment on above: Performed By: #### I OCSUNIL BMP, CDP #### [facility] [address] [place] [address] Periodontal Assistant: Afshin Mansfield MD CO2 [Moles/Vol] 20 mmol/L Normal 20-31 [facility] Comment on above: Performed By: #### I OCSUNIL BMP, CDP #### [facility] [address] [place] [address] Periodontal Assistant: Afshin Mansfield MD Creatinine [Mass/Vol] 0.89 mg/dL Normal 0.70-1.20 [facility] Comment on above: Performed By: #### I OCSUNIL BMP, CDP #### [employer] [address] [place] [address] Periodontal Assistant: Afshin Mansfield MD GFR, Amer >60 Normal >60 [facility] Comment on above: Performed By: #### I OCSUNIL, BMP, CDP #### [facility] [employer] [address] [place] [address] Periodontal Assistant: Afshin Mansfield MD GFR,non Amer >60 Normal >60 [facility] Comment on above: Performed By: #### I OCSUNIL, BMP, CDP #### [facility] [employer] [address] [place] [address] Periodontal Assistant: Afshin Mansfield MD Glucose [Mass/Vol] 198 mg/dL High 70-99 [facility] Comment on above: Performed By: #### I AMY BMP, CDP #### [facility] [employer] [address] [place] [address] 61406 Periodontal Assistant: Afshin Mansfield MD Potassium [Moles/Vol] 4.4 mmol/L Normal 3.7-5.3 [facility] Comment on above: Performed By: #### DALE KINNEY, CDP #### [facility] [employer] [address] [place] [address] 29705 Periodontal Assistant: Afshin Mansfield MD Sodium [Moles/Vol] 133 mmol/L Low 135-144 [facility] Comment on above: Performed By: #### I OCSUNIL BMP, CDP #### [facility] [employer] [address] [place] [address] 44688 Periodontal Assistant: Afshin Mansfield MD Urea nitrogen [Mass/Vol] 14 mg/dL Normal 8-23 [facility] Comment on above: Performed By: #### I OCSUNIL BMP, CDP #### [facility] [employer] [address] [place] [address] 30917 Periodontal Assistant: Afshin Mansfield MD CBC with Auto Differentialon 11-29-2021 Absolute Eos # 0.00 [facility] Absolute Immature Granulocyte 0.19 [facility] Absolute Lymph # 0.57 Low [facility] Absolute Caroline # 1.33 High [facility] Basophils (Bld) [#/Vol] 0.00 10*3/uL [facility] Basophils/100 WBC (Bld) 0 % 0 - 2 % [facility] Eosinophils/100 WBC (Bld) 0 % Low 1 - 4 % [facility] Hematocrit (Bld) [Volume fraction] 40.4 % Low 40.7 - 50.3 % [facility] Hemoglobin (Bld) [Mass/Vol] 13.6 g/dL 13 - 17 g/dL [facility] Immature granulocytes/100 WBC (Bld) 1 % High 0 [facility] Interpretation and review of laboratory results Abnormal [facility] Lymphocytes/100 WBC (Bld) 3 % Low 24 - 43 % [facility] MCH (RBC) [Entitic mass] 30.5 pg 25.2 - 33.5 pg [facility] MCHC (RBC) [Mass/Vol] 33.7 g/dL 28.4 - 34.8 g/dL [facility] MCV (RBC) [Entitic vol] 90.6 fL 82.6 - 102.9 fL [facility] Monocytes/100 WBC (Bld) 7 % 3 - 12 % [facility] Morphology Callum (Bld) [Interp] Normal [facility] NRBC Automated 0.0 0.0 per 100 WBC [facility] Platelet distribution width (Bld) [Ratio] 13.7 % 11.8 - 14.4 % [facility] Platelet mean volume (Bld) [Entitic vol] 9.9 fL 8.1 - 13.5 fL [facility] Platelets (Bld) [#/Vol] 250 10*3/uL [facility] RBC (Bld) [#/Vol] 4.46 10*6/uL 4.21 - 5.7 7 m/uL [facility] Segmented neutrophils/100 WBC (Bld) 89 % High 36 - 65 % [facility] Segs Absolute 16.91 High [facility] WBC (Bld) [#/Vol] 19.0 10*3/uL High [facility] CBC with Diffon 11-29-2021 Abs. Basophil 0.00 k/uL Normal 0.00-0.20 [facility] Comment on above: Performed By: #### I DALE REYES, CDP #### [employer] [address] [place] [address] 08093 Periodontal Assistant: Afshin Mansfield MD Abs.Imm.Granulocyte 0.19 k/uL Normal 0.00-0.30 [facility] Comment on above: Performed By: #### DALE KINNEY, CDP #### [employer] [address] [place] [address] 37525 Periodontal Assistant: Afshin Mansfield MD Abs.Neutrophil (Seg) 16.91 k/uL High 1.50-8.10 [facility] Comment on above: Performed By: #### DALE KINNEY, CDP #### [employer] [address] [place] [address] 15913 Periodontal Assistant: Afshin Mansfield MD Basophils/100 WBC (Bld) 0 % Normal 0-2 [facility] Comment on above: Performed By: #### DALE KINNEY, CDP #### [facility] [address] [place] [address] 35269 Periodontal Assistant: Afshin Mansfield MD Eosinophils (Bld) [#/Vol] 0.00 10*3/uL Normal 0.00-0.44 [facility] Comment on above: Performed By: #### I OCDALE BARBER, CDP #### [employer] [address] [place] [address] 82586 Periodontal Assistant: Afshin Mansfield MD Eosinophils/100 WBC (Bld) 0 % Low 1-4 [facility] Comment on above: Performed By: #### I OCDALE BARBER, CDP #### [facility] [address] [place] [address] 08199 Periodontal Assistant: Afshin Mansfield MD Immature granulocytes/100 WBC (Bld) 1 % High 0 [facility] Comment on above: Performed By: #### I OCAL, BMP, CDP #### [facility] [address] [place] [address] 21533 Periodontal Assistant: Afshin Mansfield MD Lymphocytes (Bld) [#/Vol] 0.57 10*3/uL Low 1.10-3.70 [facility] Comment on above: Performed By: #### I OCAL, BMP, CDP #### [facility] [employer] [address] [place] [address] 61625 Periodontal Assistant: Afshin Mansfield MD Lymphocytes/100 WBC (Bld) 3 % Low 24-43 [facility] Comment on above: Performed By: #### I OCAL, BMP, CDP #### [address] [address] Periodontal Assistant: Afshin Mansfield MD Monocytes (Bld) [#/Vol] 1.33 10*3/uL High 0.10-1.20 [facility] Comment on above: Performed By: #### I OCAL, BMP, CDP #### [facility] [employer] [address] [place] [address] 22091 Periodontal Assistant: Afshin Mansfield MD Monocytes/100 WBC (Bld) 7 % Normal 3-12 [facility] Comment on above: Performed By: #### I OCAL, BMP, CDP #### [facility] [employer] [address] [place] [address] 39596 Periodontal Assistant: Afshin Mansfield MD Morphology Callum (Bld) [Interp] Normal Normal [facility] Comment on above: Performed By: #### I OCAL, BMP, CDP #### [facility] [address] [place] [address] 55093 Periodontal Assistant: Afshin Mansfield MD Neutrophil (Seg) 89 % High 36-65 [facility] Comment on above: Performed By: #### I DALE REYES, CDP #### [facility] [employer] [address] [place] [address] 61173 Periodontal Assistant: Afshin Mansfield MD Erythrocyte distribution width (RBC) [Ratio] 13.7 % Normal 11.8-14.4 [facility] Comment on above: Performed By: #### I OCDALE BARBER, CDP #### [facility] [address] [place] [address] 75903 Periodontal Assistant: Afshin Mansfield MD Hematocrit (Bld) [Volume fraction] 40.4 % Low 40.7-50.3 [facility] Comment on above: Performed By: #### I DALE REYES, CDP #### [facility] [address] [place] [address] 19688 Periodontal Assistant: Afshin Mansfield MD Hemoglobin (Bld) [Mass/Vol] 13.6 g/dL Normal 13.0-17.0 [facility] Comment on above: Performed By: #### DALE KINNEY, CDP #### [facility] [address] [place] [address] 92816 Periodontal Assistant: Afshin Mansfield MD MCH (RBC) [Entitic mass] 30.5 pg Normal 25.2-33.5 [facility] Comment on above: Performed By: #### I OCDALE BARBER, CDP #### [facility] [address] [place] [address] 92474 Periodontal Assistant: Afshin Mansfield MD MCHC (RBC) [Mass/Vol] 33.7 g/dL Normal 28.4-34.8 [facility] Comment on above: Performed By: #### I OCDALE BARBER, CDP #### [facility] [address] [place] [address] 08455 Periodontal Assistant: Afshin Mansfield MD MCV (RBC) [Entitic vol] 90.6 fL Normal 82.6-102.9 [facility] Comment on above: Performed By: #### I OCDALE BARBER, CDP #### [facility] [employer] [address] [place] [address] 54621 Periodontal Assistant: Afshin Mansfield MD NRBC Automated 0.0 per 100 WBC Normal 0.0 [facility] Comment on above: Performed By: #### I OCSUNIL, BMP, CDP #### [facility] [employer] [address] [place] [address] 98942 Periodontal Assistant: Afshin Mansfield MD Platelet mean volume (Bld) [Entitic vol] 9.9 fL Normal 8.1-13.5 [facility] Comment on above: Performed By: #### I OCDALE BARBER, CDP #### [facility] [employer] [address] [place] [address] 35952 Periodontal Assistant: Afshin Mansfield MD Platelets (Bld) [#/Vol] 250 10*3/uL Normal 138-453 [facility] Comment on above: Performed By: #### I OCDALE BARBER, CDP #### [facility] [employer] [address] [place] [address] 58791 Periodontal Assistant: Afshin Mansfield MD RBC (Bld) [#/Vol] 4.46 10*6/uL Normal 4.21-5.77 [facility] Comment on above: Performed By: #### I OCSUNIL BMP, CDP #### [facility] [employer] [address] [place] [address] 07389 Periodontal Assistant: Afshin Mansfield MD WBC (Bld) [#/Vol] 19.0 10*3/uL High 3.5-11.3 [facility] Comment on above: Performed By: #### I OCSUNIL BMP, CDP #### [facility] [employer] 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 [facility] Anders Anton MD - 11/29/2021 EXAMINATION: CT [...] shift. Similar punctate focus of presumed hemorrhage. [facility] [employer] Phone: [facility] Phone: Radiology Study observation (narrative) [facility] Phone: Calcium, Ionicon 11-29-2021 Calcium [Moles/Vol] 1.07 mmol/L Low 1.13-1.33 [facility] Comment on above: Performed By: #### I OCSUNIL, BMP, CDP #### [facility] [employer] [address] [place] [address] Periodontal Assistant: Afshin Mansfield MD Calcium, Ionizedon Calcium, Ionized 1.07 mmol/L Low 1.13 - 1.33 mmol/L [facility] Interpretation and review of laboratory results Abnormal [facility] Magnesiumon 11-29-2021 Magnesium [Mass/Vol] 2.6 mg/dL Normal 1.6-2.6 [facility] Comment on above: Performed By: #### I OCSUNIL, BMP, CDP #### [facility] [employer] [address] [id number] Periodontal Assistant: Afshin Mansfield MD Magnesium [Mass/Vol] 2.6 mg/dL 1.6 - 2 .6 mg/dL [facility] POC Glucose Fingerstickon Glucose [Mass/Vol] 199 mg/dL High 75 - 110 mg/dL [facility] Interpretation and review of laboratory results Abnormal [facility] Glucose [Mass/Vol] 211 mg/dL High 75 - 110 mg/dL [facility] Interpretation and review of laboratory results Abnormal [facility] Glucose [Mass/Vol] 213 mg/dL High 75 - 110 mg/dL [facility] Interpretation and review of laboratory results Abnormal [facility] Glucose [Mass/Vol] 195 mg/dL High 75 - 110 mg/dL [facility] Interpretation and review of laboratory results Abnormal [facility] Glucose [Mass/Vol] 205 mg/dL High 75 - 110 mg/dL [facility] Interpretation and review of laboratory results Abnormal [facility] SYSTEMT[facility] Basic Metabolic Profon 11-28 (cont.) Normal [facility] Comment on above: Result Comment: Aver age GFR for 70 or more years old: 75 mL/min/1.73sq m Chronic Kidney Disease: <60 mL/min/1.73sq m Kidney failure: <15 mL/min/1.73sq m eGFR calculated using average adult body mass. Additional eGFR calculator available at: http://www.TowerMetriX.Fermentalg/multiple_crcl_2012.htm Performed By: #### C BC, GLYHGB, BMP #### [facility] [address] [place] [address] 70810 Periodontal Assistant: Afshin Mansfield MD Anion gap [Moles/Vol] 15 mmol/L Normal 9-17 [facility] Comment on above: Performed By: #### C BC, GLYHGB, BMP #### [facility] [address] [place] [address] 04910 Periodontal Assistant: Afshin Mansfield MD Calcium [Mass/Vol] 8.1 mg/dL Low 8.6-10.4 [facility] Comment on above: Performed By: #### C BC, GLYHGB, BMP #### [facility] [employer] [address] [place] [address] 78723 Periodontal Assistant: Afshin Mansfield MD Chloride [Moles/Vol] 95 mmol/L Low 98-107 [facility] Comment on above: Performed By: #### C BC, GLYHGB, BMP #### [facility] [employer] [address] [place] [address] 58045 Periodontal Assistant: Afshin Mansfield MD CO2 [Moles/Vol] 21 mmol/L Normal 20-31 [facility] Comment on above: Performed By: #### C BC, GLYHGB, BMP #### [facility] [employer] [address] [place] [address] 15167 Periodontal Assistant: Afshin Mansfield MD Creatinine [Mass/Vol] 0.94 mg/dL Normal 0.70-1.20 [facility] Comment on above: Performed By: #### C BC, GLYHGB, BMP #### [facility] [address] [place] [address] 74460 Periodontal Assistant: Afshin Mansfield MD GFR, Amer >60 Normal >60 [facility] Comment on above: Performed By: #### C BC, GLYHGB, BMP #### [facility] [place] [address] Periodontal Assistant: Afshin Mansfield MD GFR,non Amer >60 Normal >60 [facility] Comment on above: Performed By: #### C BC, GLYHGB, BMP #### [facility] [address] [place] [address] 28735 Periodontal Assistant: Afshin Mansfield MD Glucose [Mass/Vol] 230 mg/dL High 70-99 [facility] Comment on above: Performed By: #### C BC, GLYHGB, BMP #### [facility] [address] [place] [address] 50851 Periodontal Assistant: Afshin Mansfield MD Potassium [Moles/Vol] 4.2 mmol/L Normal 3.7-5.3 [facility] Comment on above: Performed By: #### C BC, GLYHGB, BMP #### [facility] [address] [place] [address] 69938 Periodontal Assistant: Afshin Mansfield MD Sodium [Moles/Vol] 131 mmol/L Low 135-144 [facility] Comment on above: Performed By: #### C BC, GLYHGB, BMP #### [facility] [address] [place] [address] 67439 Periodontal Assistant: Afshin Mansfield MD Urea nitrogen [Mass/Vol] 10 mg/dL Normal 8-23 [facility] Comment on above: Performed By: #### C BC, GLYHGB, BMP #### [facility] [address] [place] [address] 94053 Periodontal Assistant: Afshin Mansfield MD Basic metabolic panelon -0 Anion gap [Moles/Vol] 15 mmol/L 9 - 17 mmol/L [facility] Calcium [Mass/Vol] 8.1 mg/dL Low 8.6 - 10. 4 mg/dL [facility] Chloride [Moles/Vol] 95 mmol/L Low 98 - 10 7 mmol/L [facility] CO2 [Moles/Vol] 21 mmol/L 20 - 31 mmol/L [facility] Creatinine [Mass/Vol] 0.94 mg/dL 0.7 - 1.2 mg/dL [facility] GFR >60 60 - PI NF mL/min [facility] GFR Non- >60 60 - PINF mL/min [facility] GFR/1.73 sq M.predicted MDRD (S/P/Bld) [Vol rate/Area] [facility] Comment on above: Average GFR for 70 o r more years old: 75 mL/min/1.73sq m Chronic Kidney Disease: <60 mL/min/1.73sq m Kidney failure: <15 mL/min/1.73sq m eGFR calculated using average adult body mass. Additional eGFR calculator available at: http://www.Fly6/multiple_crcl_2011.htm Glucose [Mass/Vol] 230 mg/dL High 70 - 99 mg/dL [facility] Interpretation and review of laboratory results Abnormal [facility] Potassium [Moles/Vol] 4.2 mmol/L 3.7 - 5.3 mmol/L [facility] Sodium [Moles/Vol] 131 mmol/L Low 135 - 144 mmol/L [facility] Urea nitrogen (BldV) [Mass/Vol] 10 mg/dL 8 - 23 mg/dL [facility] C-Reactive Proteinon 022 CRP [Mass/Vol] 13.7 mg/L High 0.0-5.0 [facility] Comment on above: Performed By: #### I DALE REYES, CDP #### [facility] [employer] [address] [place] [address] Periodontal Assistant: Afshin Mansfield MD CRP [Mass/Vol] 13.7 mg/L High 0 - 5 mg/L [facility] Interpretation and review of laboratory results Abnormal [facility] CBCon 11-28-2021 Erythrocyte distribution width (RBC) [Ratio] 13.6 % Normal 11.8-14.4 [facility] Comment on above: Performed By: #### C BC, GLYHGB, BMP #### [facility] [employer] [address] [place] [address] 84495 Periodontal Assistant: Afshin Mansfield MD Hematocrit (Bld) [Volume fraction] 40.1 % Low 40.7-50.3 [facility] Comment on above: Performed By: #### C BC, GLYHGB, BMP #### [facility] [address] [place] [address] 92950 Periodontal Assistant: Afshin Mansfield MD Hemoglobin (Bld) [Mass/Vol] 13.9 g/dL Normal 13.0-17.0 [facility] Comment on above: Performed By: #### C BC, GLYHGB, BMP #### [facility] [employer] [address] [place] [address] 21122 Periodontal Assistant: Afshin Mansfield MD MCH (RBC) [Entitic mass] 30.2 pg Normal 25.2-33.5 [facility] Comment on above: Performed By: #### C BC, GLYHGB, BMP #### [facility] [employer] [address] [place] [address] 64602 Periodontal Assistant: Afshin Mansfield MD MCHC (RBC) [Mass/Vol] 34.7 g/dL Normal 28.4-34.8 [facility] Comment on above: Performed By: #### C BC, GLYHGB, BMP #### [facility] [employer] [address] [place] [address] 91107 Periodontal Assistant: Afshin Mansfield MD MCV (RBC) [Entitic vol] 87.0 fL Normal 82.6-102.9 [facility] Comment on above: Performed By: #### C BC, GLYHGB, BMP #### [facility] [employer] [address] [place] [address] [phone] Periodontal Assistant: Afshin Mansfield MD NRBC Automated 0.0 per 100 WBC Normal 0.0 [facility] Comment on above: Performed By: #### Amara [place] GLYHGB, BMP #### [facility] [employer] [facility] [place] [address] Periodontal Assistant: Afshin Mansfield MD Platelet mean volume (Bld) [Entitic vol] 10.1 fL Normal 8.1-13.5 [facility] Comment on above: Performed By: #### C DARRICK GLYHGB, BMP #### [facility] [address] [place] [address] 13010 Periodontal Assistant: Afshin Mansfield MD Platelets (Bld) [#/Vol] 222 10*3/uL Normal 138-453 [facility] Comment on above: Performed By: #### Amara HOLLING[place]TH GLYHGB, BMP #### [facility] [address] [place] [address] 06294 Periodontal Assistant: Afshin Mansfield MD RBC (Bld) [#/Vol] 4.61 10*6/uL Normal 4.21-5.77 [facility] Comment on above: Performed By: #### C DARRICK GLYHGB, BMP #### [facility] [employer] [address] [place] [address] 76591 Periodontal Assistant: Afshin Mansfield MD WBC (Bld) [#/Vol] 13.5 10*3/uL High 3.5-11.3 [facility] Comment on above: Performed By: #### C DARRICK GLYHGB, BMP #### [facility] [place] [address] Periodontal Assistant: Afshin Mansfield MD Hematocrit (Bld) [Volume fraction] 40.1 % Low 40.7 - 50.3 % [facility] Hemoglobin (Bld) [Mass/Vol] 13.9 g/dL 13 - 17 g/dL [facility] Interpretation and review of laboratory results Abnormal [facility] MCH (RBC) [Entitic mass] 30.2 pg 25.2 - 33.5 pg [facility] MCHC (RBC) [Mass/Vol] 34.7 g/dL 28.4 - 34.8 g/dL [facility] MCV (RBC) [Entitic vol] 87.0 fL 82.6 - 102.9 fL [facility] NRBC Automated 0.0 0.0 per 100 WBC [facility] Platelet distribution width (Bld) [Ratio] 13.6 % 11.8 - 14.4 % [facility] Platelet mean volume (Bld) [Entitic vol] 10.1 fL 8.1 - 13.5 fL [facility] Platelets (Bld) [#/Vol] 222 10*3/uL [facility] RBC (Bld) [#/Vol] 4.61 10*6/uL 4.21 - 5.7 7 m/uL [facility] WBC (Bld) [#/Vol] 13.5 10*3/uL High [facility] CBC AUTO DIFFon 11-28-2021 BASO # 0.0 103/ul Normal 0.0-0.1 [facility] Comment on above: Performed By: #### H STROPN, CMP, CRP #### [facility] [address] [address] [address] Sea Pugh Basophils/100 WBC (Bld) 0.3 % Normal 0.2-2.0 [facility] Comment on above: Performed By: #### H STROPN, CMP, CRP #### [facility] [address] [address] [address] Sea Pugh EO # 0.1 103/ul Normal 0.0-0.7 [facility] Comment on above: Performed By: #### H STROPN, CMP, CRP #### [facility] [address] [address] [address] Sea Pugh Eosinophils/100 WBC (Bld) 0.8 % Critically low 0.9-7.0 [facility] Comment on above: Performed By: #### H STROPN, CMP, CRP #### [facility] [address] [address] [address] Sea Pugh Erythrocyte distribution width (RBC) [Ratio] 13.6 % Normal 11.0-15.0 [facility] Comment on above: Performed By: #### H STROPN, CMP, CRP #### [facility] [address] [place] [address] Dr. Sea Pugh Hematocrit (Bld) [Volume fraction] 41.0 % Critically low 42.0-54.0 [facility] Comment on above: Performed By: #### H STROPN, CMP, CRP #### [facility] [address] [place] [address] Dr. Sea Pugh Hemoglobin (Bld) [Mass/Vol] 14.0 g/dL Normal 14.0-18.0 [facility] Comment on above: Performed By: #### H STROPN, CMP, CRP #### [facility] [address] [place] [address] Dr. Sea Pugh IG # 0.04 10e3/ul Critically high 0.00-0.03 [facility] Comment on above: Performed By: #### H STROPN, CMP, CRP #### [facility] [address] [place] [address] Dr. Sea Pugh IG % 0.3 % Normal 0.0-0.5 [facility] Comment on above: Performed By: #### H STROPN, CMP, CRP #### [facility] [address] [place] [address] Dr. Sea Pugh LYMPH # 1.2 103/ul Normal 1.2-3.8 [facility] Comment on above: Performed By: #### H STROPN, CMP, CRP #### [facility] [address] [place] [address] Dr. Sea Pugh Lymphocytes/100 WBC (Bld) 9.7 % Critically low 20.5-60.0 [facility] Comment on above: Performed By: #### H STROPN, CMP, CRP #### [facility] [address] [place] [address] Dr. Sea Pugh MANUAL DIFF REQ NO Normal [facility] Comment on above: Performed By: #### H STROPN, CMP, CRP #### [facility] [address] [place] [address] Dr. Sea Pugh MCH (RBC) [Entitic mass] 29.9 pg Normal 25.9-34.0 [facility] Comment on above: Performed By: #### H STROPN, CMP, CRP #### [facility] [address] [place] [address] Dr. Sea Pugh MCHC (RBC) [Mass/Vol] 34.1 g/dL Normal 29.9-35.2 [facility] Comment on above: Performed By: #### H STROPN, CMP, CRP #### [facility] [address] [place] [address] Dr. Sea Pugh MCV (RBC) [Entitic vol] 87.6 fL Normal 80.0-94.0 [facility] Comment on above: Performed By: #### H STROPN, CMP, CRP #### [facility] [address] [place] [address] Dr. Sea Pugh MONO # 0.9 103/ul Critically high 0.3-0.8 [facility] Comment on above: Performed By: #### H STROPN, CMP, CRP #### [facility] [address] [place] [address] Dr. Sea Pugh Monocytes/100 WBC (Bld) 7.4 % Normal 1.7-12.0 [facility] Comment on above: Performed By: #### H STROPN, CMP, CRP #### [facility] [address] [place] [address] Dr. Sea Pugh NEUT # 10.3 103/ul Critically high 1.4-6.5 [facility] Comment on above: Performed By: #### H STROPN, CMP, CRP #### [facility] [address] [place] [address] Dr. Sea Pugh Neutrophils/100 WBC (Bld) 81.5 % Critically high 43.0-75.0 [facility] Comment on above: Performed By: #### H STROPN, CMP, CRP #### [facility] [address] [address] [address] Sea Pugh Platelet mean volume (Bld) [Entitic vol] 9.8 fL Normal 9.5-13.5 [facility] Comment on above: Performed By: #### H STROPN, CMP, CRP #### [facility] [address] [address] [address] Sea Pugh PLT 247 103/ul Normal 150-450 [facility] Comment on above: Performed By: #### H STROPN, CMP, CRP #### [facility] [address] [address] [address] Sea Pugh RBC 4.68 106/ul Critically low 4.70-6.10 [facility] Comment on above: Performed By: #### H STROPN, CMP, CRP #### [facility] [address] [address] [address] Sea Pugh WBC 12.6 103/ul Critically high 4.0-11.0 [facility] Comment on above: Performed By: #### H STROPN, CMP, CRP #### [facility] [address] [address] [address] Sea Pugh CRPon 11-28-2021 CRP 0.3 mg/dL Normal <=1.0 [facility] Comment on above: Performed By: #### H STROPN, CMP, CRP #### [facility] [address] HEAD WO CONon 11-28-2021 CT [...] VICENTA MARCH Date: 2021-11-28 00:11 Normal [facility] CT HEAD WO CONTRASTon 2021 CT HEAD [...] Adalberto Escobar MD 11/28/21 Final result Normal [facility] Radiology Study observation (narrative) MIRA BANNERNative [facility] [employer] Work Phone: CTA HEAD NECK W CONTRASTon [...] Adalberto Escobar MD 11/28/21 Final result Normal [facility] CTA head neck with contrasto n 11-28-2021 Radiology Study observation (narrative) [facility] [employer] Work Phone: Hemoglobin A1Con 11-28-2021 Glucose [Mass/Vol] 186 mg/dL Normal [facility] Comment on above: Result Comment: The ADA and AACC recommend providing the estimated average glucose result to permit better patient understanding of their HBA1c result. Performed By: #### C BC, GLYHGB, BMP #### [employer] [facility] [place], [place] [phone] Periodontal Assistant: Afshin Mansfield MD HbA1c (Bld) [Mass fraction] 8.1 % High 4.0-6.0 [facility] Comment on above: Performed By: #### C BC, GLYHGB, BMP #### [employer] [address] [place], [place] [phone] Periodontal Assistant: Afshin Mansfield MD Hemoglobin A1con 11-28-2021 Glucose [Mass/Vol] 186 mg/dL [facility] [employer] Comment on above: The ADA and AACC rec ommend providing the estimated average glucose result to permit better patient understanding of their HBA1c result. HbA1c (Bld) [Mass fraction] 8.1 % High 4 - 6 % [facility] Interpretation and review of laboratory results Abnormal [facility] LACTATE/LACTIC ACIDon 2021 Lactate [Moles/Vol] 1.7 mmol/L Normal 0.4-1.9 [facility] Comment on above: Performed By: #### D DIM #### [facility] [address] [address] [address] Sea Pugh Lipid Panelon 11-28-2021 Cholesterol [Mass/Vol] 122 mg/dL NINF - 200 mg/dL [facility] Comment on above: Cholesterol Guidelines: <200 Desirable 200-240 Borderline >240 Undesirable Cholesterol in HDL [Mass/Vol] 34 mg/dL Low 40 - PINF mg/dL [facility] Comment on above: HDL Guidelines: <40 Undesirable 40-59 Borderline >59 Desirable Cholesterol in LDL [Mass/Vol] 74 mg/dL 0 - 130 mg/dL [facility] Comment on above: LDL Guidelines: <100 Desirable 100-129 Near to/above Desirable 130-159 Borderline >159 Undesirable Direct (measured) LDL and calculated LDL are not interchangeable tests. Cholesterol.total/Cho lesterol in HDL [Mass ratio] 3.6 {ratio} NINF - 5 [facility] Interpretation and review of laboratory results Abnormal [facility] Triglyceride [Mass/Vol] 71 mg/dL NINF - 150 mg/dL [facility] Comment on above: Triglyceride Guidelines: <150 Desirable 150-199 Borderline 200-499 High >499 Very high Based on AHA Guidelines for fasting triglyceride, December 2011. [facility] Lipid Profileon 11-28-2021 Cholesterol [Mass/Vol] 122 mg/dL Normal <200 [facility] Comment on above: Result Comment: Cholesterol Guidelines: <200 Desirable 200-240 Borderline >240 Undesirable Performed By: #### I DALE REYES, CDP #### [employer] [facility] [place] [address] Periodontal Assistant: Afshin Mansfield MD Cholesterol in HDL [Mass/Vol] 34 mg/dL Low >40 [facility] Comment on above: Result Comment: HDL Guidelines: <40 Undesirable 40-59 Borderline >59 Desirable Performed By: #### I DALE REYES, CDP #### [employer] [address] [place] [address] [phone] Periodontal Assistant: Afshin Mansfield MD Cholesterol in LDL [Mass/Vol] 74 mg/dL Normal 0-130 [facility] Comment on above: Result Comment: LDL Guidelines: <100 Desirable 100-129 Near to/above Desirable 130-159 Borderline >159 Undesirable Direct (measured) LDL and calculated LDL are not interchangeable tests. Performed By: #### I DALE REYES, CDP #### [employer] [address] [place] [address] [phone] Periodontal Assistant: Afshin Mansfield MD Cholesterol.total/Cho lesterol in HDL [Mass ratio] 3.6 {ratio} Normal <5 [facility] Comment on above: Performed By: #### I DALE REYES, CDP #### [facility] CenterInstallSh[facility] Corporation [address] [place] [phone] Periodontal Assistant: Afshin Mansfield MD Triglyceride [Mass/Vol] 71 mg/dL Normal <150 [facility] Comment on above: Result Comment: Triglyceride Guidelines: <150 Desirable 150-199 Borderline 200-499 High >499 Very high Based on AHA Guidelines for fasting triglyceride, December 2011. Performed By: #### I DALE REYES, CDP #### [employer] [address] [place] [address] [phone] Periodontal Assistant: Afshin Mansfield MD MRI BRAIN W WO [...] Anders Shepard MD 11/28/21 Final result Normal [facility] Subacute ischemia involving the right parietal/temporal lobe with associated hemorrhagic/hemosider in staining. There is mild associated edema, mass effect, and minimal leftward midline shift. [facility] RIS CONSOLIDATED EXAMINATION: MRI OF THE BRAIN [...] The soft tissues demonstrate no acute abnormality. [facility] Anders Merino MD - 11/28/2021 [...] mass effect, and minimal leftward midline shift. [employer] Phone: Radiology Study observation (narrative) [employer] Phone: MRI BRAIN W WO CONTRASTOrder ed By: Anders Shepard on 11-28-2021 [employer] Phone: Magnesiumon 11-28-2021 Magnesium [Mass/Vol] 1.5 mg/dL Low 1.6-2.6 [facility] Comment on above: Performed By: #### I AMY, DALE, CDP #### [employer] [address] [phone] Periodontal Assistant: Afshin Mansfield MD Interpretation and review of laboratory results Abnormal [facility] Magnesium [Mass/Vol] 1.5 mg/dL Low 1.6 - 2 .6 mg/dL [facility] No Panel Informationon 11-28 1. Findings appear [...] to Dr. Velázquez on 11/28/2021 at 06:40. [facility] RIS CONSOLIDATED EXAMINATION: CT OF THE HEAD [...] venous sinus thrombosis on this non-dedicated study. [facility] RIS CONSOLIDATED Adalberto Escobar MD - 11/28/2021 [...] to Dr. Velázquez on 11/28/2021 at 06:40. [employer] Work Phone: No Panel InformationOrdered By: Adalberto Escobar on 11-28-2021 [employer] Work Phone: POC Glucose Finger[employer] Glucose [Mass/Vol] 223 mg/dL High 75 - 110 mg/dL [employer] Interpretation and review of laboratory results Abnormal [employer] [facility] Glucose [Mass/Vol] 242 mg/dL High 75 - 110 mg/dL [facility] [employer] Interpretation and review of laboratory results Abnormal [employer] Glucose [Mass/Vol] 262 mg/dL High 75 - 110 mg/dL [facility] Interpretation and review of laboratory results Abnormal [facility] Glucose [Mass/Vol] 317 mg/dL High 75 - 110 mg/dL [facility] Interpretation and review of laboratory results Abnormal [employer] BANNERUruut PROF 14(COMP METB)on 022 Albumin [Mass/Vol] 3.7 g/dL Normal 3.4-5.0 [facility] Comment on above: Performed By: #### H STROPN, CMP, CRP #### [facility] [address] [address] [address] Sea Pugh Albumin/Globulin [Mass ratio] 0.9 {ratio} Normal [facility] Comment on above: Performed By: #### H STROPN, CMP, CRP #### [facility] [address] [address] [address] Sea Pugh ALP [Catalytic activity/Vol] 150 U/L Critically high 46-116 [facility] Comment on above: Performed By: #### H STROPN, CMP, CRP #### [facility] [address] [address] [address] Sea Pugh ALT [Catalytic activity/Vol] 23 U/L Normal 16-63 [facility] Comment on above: Performed By: #### H STROPN, CMP, CRP #### [facility] [address] [address] [address] Sea Pugh Anion gap [Moles/Vol] 9.8 mmol/L Normal [facility] Comment on above: Performed By: #### H STROPN, CMP, CRP #### [facility] [address] [address] [address] Sea Pugh AST [Catalytic activity/Vol] 20 U/L Normal 15-37 [facility] Comment on above: Performed By: #### H STROPN, CMP, CRP #### [facility] [address] [place] [address] Dr. Sea Pugh Bilirubin [Mass/Vol] 1.2 mg/dL Critically high 0.2-1.0 [facility] Comment on above: Performed By: #### H STROPN, CMP, CRP #### [facility] [address] [place] [address] Dr. Sea Pugh Calcium [Mass/Vol] 8.5 mg/dL Normal 8.5-10.1 [facility] Comment on above: Performed By: #### H STROPN, CMP, CRP #### [facility] [address] [place] [address] Dr. Sea Pugh Chloride [Moles/Vol] 100 mmol/L Normal 98-107 [facility] Comment on above: Performed By: #### H STROPN, CMP, CRP #### [facility] [address] [place] [address] Dr. Sea Pugh CO2 [Moles/Vol] 26.8 mmol/L Normal 21.0-32.0 [facility] Comment on above: Performed By: #### H STROPN, CMP, CRP #### [facility] [address] [address] [address] Sea Pugh Creatinine [Mass/Vol] 1.21 mg/dL Normal 0.70-1.30 [facility] Comment on above: Performed By: #### H STROPN, CMP, CRP #### [facility] [address] [address] [address] Sea Pugh EGFR-AF PALAUAN >60 Normal >=60 [facility] Comment on above: Performed By: #### H STROPN, CMP, CRP #### [facility] [address] [address] [address] Sea Pugh EGFR-NON AF PALAUAN 58 mL/min/1.73m2 Critically low >=60 [facility] Comment on above: Performed By: #### H STROPN, CMP, CRP #### [facility] [address] [address] [address] Sea Pugh Globulin (S) [Mass/Vol] 3.9 g/dL Normal [facility] Comment on above: Performed By: #### H STROPN, CMP, CRP #### [facility] [address] [address] [address] Sea Pugh Glucose [Mass/Vol] 165 mg/dL Critically high 74-106 [facility] Comment on above: Performed By: #### H STROPN, CMP, CRP #### [facility] [address] [address] [address] Sea Pugh Potassium [Moles/Vol] 3.6 mmol/L Normal 3.5-5.1 [facility] Comment on above: Performed By: #### H STROPN, CMP, CRP #### [facility] [address] [address] [address] Sea Pugh Protein [Mass/Vol] 7.6 g/dL Normal 6.4-8.2 [facility] Comment on above: Performed By: #### H STROPN, CMP, CRP #### [facility] [address] [address] [address] Sea Pugh Sodium [Moles/Vol] 133 mmol/L Critically low 136-145 [facility] Comment on above: Performed By: #### H STROPN, CMP, CRP #### [facility] [address] [address] [address] Sea Pugh Urea nitrogen [Mass/Vol] 9.0 mg/dL Normal 7.0-18.0 [facility] Comment on above: Performed By: #### H STROPN, CMP, CRP #### [facility] [address] [place] [address] Dr. Sea Pugh Urea nitrogen/Creatinine [Mass ratio] 7.4 mg/mg Normal [facility] Comment on above: Performed By: #### H STROPN, CMP, CRP #### [facility] [address] [place], [place] [address] Dr. Sea Pugh Procalcitoninon 11-28-2021 Procalcitonin 0.10 ng/mL High <0.09 [facility] Comment on above: Result Comment: Suspected Sepsis: [...] entered into the Change in Procalcitonin Calculator (www.hevmtt-slb-coktqlispo.com) to determine the patient's Mortality Risk Prognosis In healthy neonates, plasma Procalcitonin (PCT) concentrations increase gradually after , reaching peak values at about 24 hours of age then decrease to normal values below 0.5 ng/mL by 48-72 hours of age. Performed By: #### I OCAL, BMP, CDP #### [facility] CenterInstall[facility]ield Software Corporation [address] [place] [address] Periodontal Assistant: Afshin Mansfield MD Interpretation and review of laboratory results Abnormal [facility] Procalcitonin 0.1 ng/mL High NINF - 0.09 ng/mL [facility] Comment on above: Suspected Sepsis: <0.50 ng/mL [...] entered into the Change in Procalcitonin Calculator (www.bbkpgn-ebz-lkmvbdroul.Fermentalg) to determine the patient's Mortality Risk Prognosis In healthy neonates, plasma Procalcitonin (PCT) concentrations increase gradually after , reaching peak values at about 24 hours of age then decrease to normal values below 0.5 ng/mL by 48-72 hours of age. [facility] SED [facility] SED RATE 42 mm/hr Critically high <=20 [facility] Comment on above: Performed By: #### S EDR #### [facility] [address] [address] [address] Sea Pugh TROPONIN, HIGH SENSITIVITYon 11-28-2021 HSTROP 7.0 pg/mL Normal 4.0-76.1 [facility] Comment on above: Result Comment: CUT- OFF POINTS HAVE BEEN ESTABLISHED BASED ON THE FOURTH UNIVERSAL DEFINITIONS OF MYOCARDIAL INFARCTION. THE UPPER REFERENCE LIMIT (URL) OF TROPONIN, DEFINED THE 99TH PERCENTILE OF cTnI DISTRIBUTION IN A REFERENCE POPULATION, HAS BEEN CONFIRMED THE DECISION THRESHOLD FOR [place] DIAGNOSIS. Performed By: #### H STROPN, CMP, CRP #### [facility] [address] [place], [place] [address] Dr. Sea Pugh Office Visit (Cardiology)on 11-27-2021 [...] Metabolic Panel; Status:Active - Retrospective Authorization; Requested for:[id number]; Overweight with body mass index (BMI) of 28 to 28.9 in adult Healthy Weight Tips; Status:Complete - Retrospective Authorization; Done: 27Nov2021 Some eating tips that can help you lose weight.; Status:Complete - Retrospective Authorization; Done: [id number] Persistent atrial fibrillation IO EKG Electrocardiogram- 12 Lead; Status:Complete; Done: [id number] Single vessel coronary disease Renew: Aspirin EC [...] drug us (more content not included)... Normal [employer] Tobacco Screening.on 022 Fall risk assessment a) No falls within the last year [facility] [employer] 250 DO Work Phone: Tobacco use status [facility] b) No [facility] 250 DO Work Phone: BNPon 09-22-2021 Natriuretic peptide B (Bld) [Mass/Vol] 836.0 pg/mL Normal <=900.0 [facility] Comment on above: Performed By: #### H STROPN, CMP, BNP ####[facility] [address] [place], [place] [address]ZvDr. Sea Pugh CBC AUTO DIFFon 09-22-2021 BASO # 0.1 103/ul Normal 0.0-0.1 [facility] Comment on above: Performed By: #### D DIM #### [facility] [address] [address] [address] Sea Pugh Basophils/100 WBC (Bld) 0.5 % Normal 0.2-2.0 [facility] Comment on above: Performed By: #### D DIM #### [facility] [address] [address] [address] Sea Pugh EO # 0.3 103/ul Normal 0.0-0.7 [facility] Comment on above: Performed By: #### D DIM #### [facility] [address] [address] [address] Sea Pugh Eosinophils/100 WBC (Bld) 3.3 % Normal 0.9-7.0 [facility] Comment on above: Performed By: #### D DIM #### [facility] [address] [address] [address] Sea Pugh Erythrocyte distribution width (RBC) [Ratio] 13.7 % Normal 11.0-15.0 [facility] Comment on above: Performed By: #### D DIM #### [facility] [address] [address] [address] Sea Pugh Hematocrit (Bld) [Volume fraction] 41.3 % Critically low 42.0-54.0 [facility] Comment on above: Performed By: #### D DIM #### [facility] [address] [address] [address] Sea Pugh Hemoglobin (Bld) [Mass/Vol] 14.0 g/dL Normal 14.0-18.0 [facility] Comment on above: Performed By: #### D DIM #### [facility] [address] [address] [address] Sea Pugh IG # 0.04 10e3/ul Critically high 0.00-0.03 [facility] Comment on above: Performed By: #### D DIM #### [facility] [address] [address] [address] Sea Pugh IG % 0.4 % Normal 0.0-0.5 [facility] Comment on above: Performed By: #### D DIM #### [facility] [address] [place] [address] Dr. Sea Pugh LYMPH # 1.3 103/ul Normal 1.2-3.8 [facility] Comment on above: Performed By: #### D DIM #### [facility] [address] [place] [address] Dr. Sea Pugh Lymphocytes/100 WBC (Bld) 13.1 % Critically low 20.5-60.0 [facility] Comment on above: Performed By: #### D DIM #### [facility] [address] [place] [address] Dr. Sea Pugh MANUAL DIFF REQ NO Normal [facility] Comment on above: Performed By: #### D DIM #### [facility] [address] [place] [address] Dr. Sea Pugh MCH (RBC) [Entitic mass] 30.2 pg Normal 25.9-34.0 [facility] Comment on above: Performed By: #### D DIM #### [facility] [address] [place] [address] Dr. Sea Pugh MCHC (RBC) [Mass/Vol] 33.9 g/dL Normal 29.9-35.2 [facility] Comment on above: Performed By: #### D DIM #### [facility] [address] [place] [address] Dr. Sea Pugh MCV (RBC) [Entitic vol] 89.0 fL Normal 80.0-94.0 [facility] Comment on above: Performed By: #### D DIM #### [facility] [address] [address] [address] Sea Pugh MONO # 1.0 103/ul Critically high 0.3-0.8 [facility] Comment on above: Performed By: #### D DIM #### [facility] [address] [address] [address] Sea Pugh Monocytes/100 WBC (Bld) 9.8 % Normal 1.7-12.0 [facility] Comment on above: Performed By: #### D DIM #### [facility] [address] [address] [address] Sea Pugh NEUT # 7.1 103/ul Critically high 1.4-6.5 [facility] Comment on above: Performed By: #### D DIM #### [facility] [address] [place] [address] Dr. Sea Pugh Neutrophils/100 WBC (Bld) 72.9 % Normal 43.0-75.0 [facility] Comment on above: Performed By: #### D DIM #### [facility] [address] [place] [address] Dr. Sea Pugh Platelet mean volume (Bld) [Entitic vol] 9.7 fL Normal 9.5-13.5 [facility] Comment on above: Performed By: #### D DIM #### [facility] [address] [place] [address] Dr. Sea Pugh PLT 247 103/ul Normal 150-450 [facility] Comment on above: Performed By: #### D DIM #### [facility] [address] [address] [address] Sea Pugh RBC 4.64 106/ul Critically low 4.70-6.10 [facility] Comment on above: Performed By: #### D DIM #### [facility] [address] [address] [address] Sea Pugh WBC 9.8 103/ul Normal 4.0-11.0 [facility] Comment on above: Performed By: #### D DIM #### [facility] [address] [id number] Sea Pugh CTA CHEST WO W [...] The subdiaphragmatic abdominal organs included in the kiolk-ua-eazt do not demonstrate any acute abnormality. IMPRESSION: 1. Normal-appearing thoracic aorta. 2. No CT evidence for acute pulmonary embolus. 3. Otherwise unremarkable CT scan of the chest for acute pathology. Electronically authenticated by: OBI MIDDLETON Date: 2021-09-22 19:33 Normal [facility] Covid-19 PCR (CVDTB)on SARS-CoV-2 (COVID-19) RNA [place]+probe Ql (Unsp spec) Not detected Normal NOT DETECTED [facility] Comment on above: Result Comment: When diagnostic [...] for this test is supported by the Vascular Surgery Physician of Health and Human Service's declaration that [...] By: #### H STROPN, CMP, CRP #### [facility] [address] [address] [address] Sea Pugh PROF 14(COMP METB)on 022 Albumin [Mass/Vol] 3.6 g/dL Normal 3.4-5.0 [facility] Comment on above: Performed By: #### H STROPN, CMP, BNP ####[facility] [address] [address]DrMook Pugh Albumin/Globulin [Mass ratio] 0.9 {ratio} Normal [facility] Comment on above: Performed By: #### H STROPN, CMP, BNP ####[facility] [address] [address]Dr[address] Sea Pugh ALP [Catalytic activity/Vol] 143 U/L Critically high 46-116 [facility] Comment on above: Performed By: #### H STROPN, CMP, BNP ####[facility] [address] [address]DrMook Pugh ALT [Catalytic activity/Vol] 28 U/L Normal 16-63 [facility] Comment on above: Performed By: #### H STROPN, CMP, BNP ####[facility] [address] [address]Dr. Sea Pugh Anion gap [Moles/Vol] 12.6 mmol/L Normal [facility] Comment on above: Performed By: #### H STROPN, CMP, BNP ####[facility] [address] [place] [address]Dr. Sea Pugh AST [Catalytic activity/Vol] 18 U/L Normal 15-37 [facility] Comment on above: Performed By: #### H STROPN, CMP, BNP ####[facility] [address] [place] [address]Dr. Sea Pugh Bilirubin [Mass/Vol] 1.1 mg/dL Critically high 0.2-1.0 [facility] Comment on above: Performed By: #### H STROPN, CMP, BNP ####[facility] [address] [place] [address]Dr. Sea Pugh Calcium [Mass/Vol] 8.7 mg/dL Normal 8.5-10.1 [facility] Comment on above: Performed By: #### H STROPN, CMP, BNP ####[facility] [address] [place] [address]Dr. Sea Pugh Chloride [Moles/Vol] 100 mmol/L Normal 98-107 [facility] Comment on above: Performed By: #### H STROPN, CMP, BNP ####[facility] [address] [place] [address]Dr. Sea Pugh CO2 [Moles/Vol] 27.1 mmol/L Normal 21.0-32.0 [facility] Comment on above: Performed By: #### H STROPN, CMP, BNP ####[facility] [address] [place] [address]Dr. Sea Pugh Creatinine [Mass/Vol] 1.15 mg/dL Normal 0.70-1.30 [facility] Comment on above: Performed By: #### H STROPN, CMP, BNP ####[facility] [address] [place] [address]Dr. Sea Pugh EGFR-AF PALAUAN >60 Normal >=60 [facility] Comment on above: Performed By: #### H STROPN, CMP, BNP ####[facility] [address] [place] [address]Dr. Sea Pugh EGFR-NON AF PALAUAN >60 Normal >=60 [facility] Comment on above: Performed By: #### H STROPN, CMP, BNP ####[facility] [address] [place] [address]Dr. Sea Pugh Globulin (S) [Mass/Vol] 3.9 g/dL Normal [facility] Comment on above: Performed By: #### H STROPN, CMP, BNP ####[facility] [address] [place] [address]Dr. Sea Pugh Glucose [Mass/Vol] 214 mg/dL Critically high 74-106 [facility] Comment on above: Performed By: #### H STROPN, CMP, BNP ####[facility] [address] [place] [address]Dr. Sea Pugh Potassium [Moles/Vol] 3.7 mmol/L Normal 3.5-5.1 [facility] Comment on above: Performed By: #### H STROPN, CMP, BNP ####[facility] [address] [place], [place] [address]Dr. Sea Pugh Protein [Mass/Vol] 7.5 g/dL Normal 6.4-8.2 [facility] Comment on above: Performed By: #### H STROPN, CMP, BNP ####[facility] [address] [place] [address]Dr. Sea Pugh Sodium [Moles/Vol] 136 mmol/L Normal 136-145 [facility] Comment on above: Performed By: #### H STROPN, CMP, BNP ####[facility] [address] [place] [address]Dr. Sea Pugh Urea nitrogen [Mass/Vol] 13.0 mg/dL Normal 7.0-18.0 [facility] Comment on above: Performed By: #### H STROPN, CMP, BNP ####[facility] [address] [place], [place] [address]Dr. Sea Pugh Urea nitrogen/Creatinine [Mass ratio] 11.3 mg/mg Normal [facility] Comment on above: Performed By: #### H STROPN, CMP, BNP ####[facility] [address] [place] [address]Dr. Sea Pugh PROTIMEon 09-22-2021 INR Coag (PPP) [Relative time] 1.07 {INR} Normal [facility] Comment on above: Performed By: #### P T, PTT ####[facility] [address] [place] [address]Dr. Sea Pugh INR GUIDELINES SEE BELOW Normal [facility] Comment on above: Result Comment: MONTEZ RED INR: 2.0 - 3.0 CONDITIONS NOT LISTED BELOW 2.5 - 3.5 FOR PROSTHETIC HEART VALVE REPLACEMENT 2.5 - 3.5 RECURRENT THROMBOSIS Performed By: #### P T, PTT ####[facility] [address] [place], [place] [address]Dr. Sea Pugh PT Coag (PPP) [Time] 11.5 s Normal 9.0-11.6 [facility] Comment on above: Performed By: #### P T, PTT ####[facility] [address] [place], [place] [address]Dr. Sea Pugh PTTon 09-22-2021 aPTT Coag (Bld) [Time] 30.2 s Normal 22.3-36.2 [facility] Comment on above: Performed By: #### P T, PTT ####[facility] [address] [place], [place] [address]Dr. Sea Pugh TROPONIN, HIGH SENSITIVITYon 09-22-2021 HSTROP 9.5 pg/mL Normal 4.0-76.1 [facility] Comment on above: Result Comment: CUT- OFF POINTS HAVE BEEN ESTABLISHED BASED ON THE FOURTH UNIVERSAL DEFINITIONS OF MYOCARDIAL INFARCTION. THE UPPER REFERENCE LIMIT (URL) OF TROPONIN, DEFINED THE 99TH PERCENTILE OF cTnI DISTRIBUTION IN A REFERENCE POPULATION, HAS BEEN CONFIRMED THE DECISION THRESHOLD FOR [place] DIAGNOSIS. Performed By: #### H STROPN, CMP, BNP ####[facility] [address] [place], [place] [address]Xa. Sea Pugh XR CHEST 1 Von 09-22-2021 [...] FARIBA MCCLURE Date: 2021-09-22 19:39 Normal [facility] CT HEAD WO CONon 08-26-2021 CT HEAD [...] KENY GREENE Date: 2021-08-26 09:53 Normal [facility] CT ORBIT WO CONon 08-26-2021 CT ORBIT [...] KENY GREENE Date: 2021-08-26 10:03 Normal [facility] CBC W MANUAL DIFFon 08-23-19 22 ATYPICAL LYMPH # Normal [facility] Comment on above: Performed By: #### D DIM #### [facility] [address] [place] [address] Dr. Sea Pugh ATYPICAL LYMPH % Normal [facility] Comment on above: Performed By: #### D DIM #### [facility] [address] [place] [address] Dr. Sea Pugh BAND # Normal 0.0-0.3 [facility] Comment on above: Performed By: #### D DIM #### [facility] [address] [place] [address] Dr. Sea Pugh BAND % Normal 0-5 [facility] Comment on above: Performed By: #### D DIM #### [facility] [address] [place] [address] Dr. Sea Pugh BASOM # 0.00 103/ul Normal 0.00-0.10 [facility] Comment on above: Performed By: #### D DIM #### [facility] [address] [place] [address] Dr. Sea Pugh BASOM % 0.0 % Critically low 0.2-2.0 [facility] Comment on above: Performed By: #### D DIM #### [facility] [address] [place] [address] Dr. Sea Pugh BLAST # Normal [facility] Comment on above: Performed By: #### D DIM #### [facility] [address] [place] [address] Dr. Sea Pugh BLAST % Normal [facility] Comment on above: Performed By: #### D DIM #### [facility] [address] [place] [address] [address] Sea Pugh CORRECTED WBC Normal 4.0-11.0 [facility] Comment on above: Performed By: #### D DIM #### [facility] [address] [place] [address] Dr. Sea Pugh EOS # 0.21 103/ul Normal 0.00-0.70 [facility] Comment on above: Performed By: #### D DIM #### [facility] [address] [place] [address] Dr. Sea Pugh EOS% 2.0 % Normal 0.9-7.0 [facility] Comment on above: Performed By: #### D DIM #### [facility] [address] [place] [address] Dr. Sea Pugh HCT 41.3 % Critically low 42.0-54.0 [facility] Comment on above: Performed By: #### D DIM #### [facility] [address] [place] [address] Dr. Sea Pugh HGB 14.1 g/dl Normal 14.0-18.0 [facility] Comment on above: Performed By: #### D DIM #### [facility] [address] [place] [address] Dr. Sea Pugh LYMPHM # 1.14 103/ul Critically low 1.20-3.80 [facility] Comment on above: Performed By: #### D DIM #### [facility] [address] [place] [address] Dr. Sea Pugh LYMPHM% 11.0 % Critically low 20.5-60.0 [facility] Comment on above: Performed By: #### D DIM #### [facility] [address] [place] [address] Dr. Sea Pugh MCH 30.9 pg Normal 25.9-34.0 [facility] Comment on above: Performed By: #### D DIM #### [facility] [address] [place] [address] Dr. Sea Pugh MCHC 34.1 g/dl Normal 29.9-35.2 [facility] Comment on above: Performed By: #### D DIM #### [facility] [address] [place] [address] [address] Sea Pugh MCV 90.4 fL Normal 80.0-94.0 [facility] Comment on above: Performed By: #### D DIM #### [facility] [address] [place] [address] Dr. Sea Pugh METAMYELOCYTE # Normal [facility] Comment on above: Performed By: #### D DIM #### [facility] [address] [place] [address] Dr. eSa Pugh METAMYELOCYTE % Normal [facility] Comment on above: Performed By: #### D DIM #### [facility] [address] [place] [address] Dr. Sea Pugh MONOM# 1.98 103/ul Critically high 0.30-0.80 [facility] Comment on above: Performed By: #### D DIM #### [facility] [address] [place] [address] Dr. Sea Pugh MONOM% 19.0 % Critically high 1.7-12.0 [facility] Comment on above: Performed By: #### D DIM #### [facility] [address] [place] [address] Dr. Sea Pugh MPV 9.7 fL Normal 9.5-13.5 [facility] Comment on above: Performed By: #### D DIM #### [facility] [address] [place] [address] Dr. Sea Pugh MYELOCYTE # Normal [facility] Comment on above: Performed By: #### D DIM #### [facility] [address] [place] [address] Dr. Sea Pugh MYELOCYTE % Normal [facility] Comment on above: Performed By: #### D DIM #### [facility] [address] [place] [address] Dr. Sea Pugh NRBC Normal [facility] Comment on above: Performed By: #### D DIM #### [facility] [address] [place] [address] [address] Sea Pugh PLT 259 103/ul Normal 150-450 [facility] Comment on above: Performed By: #### D DIM #### [facility] [address] [place] [address] [address] Sea Pugh RBC 4.57 106/ul Critically low 4.70-6.10 [facility] Comment on above: Performed By: #### D DIM #### [facility] [address] [place] [address] [address] Sea Pugh RDW 13.4 % Normal 11.0-15.0 [facility] Comment on above: Performed By: #### D DIM #### [facility] [address] [place] [address] Dr. Sea Pugh SEG # 7.07 103/ul Critically high 1.40-6.50 [facility] Comment on above: Performed By: #### D DIM #### [facility] [address] [place] [address] Dr. Sea Pugh SEG % 68.0 % Normal 43.0-75.0 [facility] Comment on above: Performed By: #### D DIM #### [facility] [address] [place] [address] Dr. Sea Pugh WBC 10.4 103/ul Normal 4.0-11.0 [facility] Comment on above: Performed By: #### D DIM #### [facility] [address] [place] [address] Dr. Sea Pugh PROF CHEM 8 (BAS METB)on Anion gap [Moles/Vol] 13.5 mmol/L Normal [facility] Comment on above: Performed By: #### H STROPN, CMP, CRP #### [facility] [address] [place] [address] Dr. Sea Pugh Calcium [Mass/Vol] 8.7 mg/dL Normal 8.5-10.1 [facility] Comment on above: Performed By: #### H STROPN, CMP, CRP #### [facility] [address] [place] [address] Dr. Sea Pugh Chloride [Moles/Vol] 97 mmol/L Critically low 98-107 [facility] Comment on above: Performed By: #### H STROPN, CMP, CRP #### [facility] [address] [place] [address] [address] Sea Pugh CO2 [Moles/Vol] 24.2 mmol/L Normal 21.0-32.0 [facility] Comment on above: Performed By: #### H STROPN, CMP, CRP #### [facility] [address] [place] [address] [address] Sea Pugh Creatinine [Mass/Vol] 1.26 mg/dL Normal 0.70-1.30 [facility] Comment on above: Performed By: #### H STROPN, CMP, CRP #### [facility] [address] [place] [address] [address] Sea Pugh EGFR-AF PALAUAN >60 Normal >=60 [facility] Comment on above: Performed By: #### H STROPN, CMP, CRP #### [facility] [address] [place] [address] [address] Sea Pugh EGFR-NON AF PALAUAN 56 mL/min/1.73m2 Critically low >=60 [facility] Comment on above: Performed By: #### H STROPN, CMP, CRP #### [facility] [address] [place] [address] [address] Sea Pugh Glucose [Mass/Vol] 201 mg/dL Critically high 74-106 [facility] Comment on above: Performed By: #### H STROPN, CMP, CRP #### [facility] [address] [place] [address] [address] Sea Pugh Potassium [Moles/Vol] 3.7 mmol/L Normal 3.5-5.1 [facility] Comment on above: Performed By: #### H STROPN, CMP, CRP #### [facility] [address] [place] [address] [address] Sea Pugh Sodium [Moles/Vol] 131 mmol/L Critically low 136-145 [facility] Comment on above: Performed By: #### H STROPN, CMP, CRP #### [facility] [address] [place], [place] [address] Dr. Sea Pugh Urea nitrogen [Mass/Vol] 21.0 mg/dL Critically high 7.0-18.0 [facility] Comment on above: Performed By: #### H STROPN, CMP, CRP #### [facility] [address] [place], [place] [address] Dr. Sea Pugh Urea nitrogen/Creatinine [Mass ratio] 16.7 mg/mg Normal [facility] Comment on above: Performed By: #### H STROPN, CMP, CRP #### [facility] [address] [place], [place] [address] Dr. Sea Pugh XR CHEST 2 Von [...] VICENTA MARCH Date: 2021-08-22 05:46 Normal [facility] XR SINUSES 3 VIEWS OR GREATE Billy [...] by: LOULOU DAVIS Date: 2021-08-22 06:31 Normal [facility] Tobacco Screening.on 022 Adult depression screening assessment No [facility] [address] DO Work Phone: Fall risk assessment a) No falls within the last year [facility] [address] DO Work Phone: Tobacco use status [facility] b) No [facility] [address] DO Work Phone: Vital Signs Date Time Vital Sign Value Performing Clinician Facility 03-17-2024 11:51-0500 Body height 185.4 cm Marciano Hi DPM Work Phone: [facility] 03-17-2024 11:51-0500 Body mass index (BMI) [Ratio] 27.97 kg/m2 Marciano Hi DPM Work Phone: [facility] 03-17-2024 11:51-0500 Body weight 96.16 kg Marciano Hi DPM Work Phone: [facility] 03-17-2024 11:51-0500 Respiratory rate 18 /min Marciano Hi DPM Work Phone: [facility] 01-28-2024 14:56-0500 Body height 185.4 cm Veronica Liz MD Work Phone: [facility] 01-28-2024 14:56-0500 Body mass index (BMI) [Ratio] 27.31 kg/m2 Veronica Liz MD Work Phone: [facility] 01-28-2024 14:56-0500 Body weight 93.89 kg Veronica Liz MD Work Phone: [facility] 01-28-2024 14:56-0500 Diastolic blood pressure 66 mm[Hg] Veronica Liz MD Work Phone: [facility] 01-28-2024 14:56-0500 Heart rate 55 /min Veronica Liz MD Work Phone: [facility] 01-28-2024 14:56-0500 Systolic blood pressure 118 mm[Hg] Veronica Liz MD Work Phone: [facility] 01-07-2024 13:51-0400 Body height 185.4 cm Marciano Hi DPM Work Phone: [facility] 01-07-2024 13:51-0400 Body mass index (BMI) [Ratio] 27.97 kg/m2 Marciano Hi DPM Work Phone: [facility] 01-07-2024 13:51-0400 Body weight 96.16 kg Marciano Brown DPM Work Phone: [facility] 01-07-2024 13:51-0400 Diastolic blood pressure 77 mm[Hg] Marciano Hi DPM Work Phone: [facility] 01-07-2024 13:51-0400 Heart rate 81 /min Marciano Hi DPM Work Phone: [facility] 01-07-2024 13:51-0400 Systolic blood pressure 131 mm[Hg] Marciano Hi DPM Work Phone: [facility] 07-30-2023 15:50-0400 Diastolic blood pressure 82 mm[Hg] Veronica Liz MD Work Phone: [facility] 07-30-2023 15:50-0400 Systolic blood pressure 132 mm[Hg] Veronica Liz MD Work Phone: [facility] 07-30-2023 14:47-0400 Body height 185.4 cm Veronica Liz MD Work Phone: [facility] 07-30-2023 14:47-0400 Body mass index (BMI) [Ratio] 28.1 kg/m2 Veronica Liz MD Work Phone: [facility] 07-30-2023 14:47-0400 Body weight 96.62 kg Veronica Liz MD Work Phone: [facility] 07-30-2023 14:47-0400 Heart rate 96 /min Veronica Liz MD Work Phone: [facility] 01-29-2023 14:35-0500 Body height 185.4 cm Veronica Liz MD Work Phone: [facility] 01-29-2023 14:35-0500 Body mass index (BMI) [Ratio] 28.89 kg/m2 Veronica Liz MD Work Phone: [facility] 01-29-2023 14:35-0500 Body weight 99.34 kg Veronica Liz MD Work Phone: [facility] 01-29-2023 14:35-0500 Diastolic blood pressure 74 mm[Hg] Veronica Liz MD Work Phone: [facility] 01-29-2023 14:35-0500 Heart rate 62 /min Veronica Liz MD Work Phone: [facility] 01-29-2023 14:35-0500 Systolic blood pressure 132 mm[Hg] Veronica Liz MD Work Phone: [facility] 08-06-2022 13:15-0400 Body height 185.42 cm Valente P [employer] Work Phone: [facility] [address] [place] Work Phone: 08-06-2022 13:15-0400 Body mass index (BMI) [Ratio] 28.23 kg/m2 Valente P House Work Phone: [facility] [address] [place] Work Phone: 08-06-2022 13:15-0400 Body surface area Derived from formula 2.21 m2 Valente P House Work Phone: [facility] [address] [place] Work Phone: 08-06-2022 13:15-0400 Body weight 97.07 kg Valente P House Work Phone: [facility] [address] [place] Work Phone: 08-06-2022 13:15-0400 Diastolic blood pressure 68 mm[Hg] Valente P House Work Phone: [facility] [address] [place] Work Phone: 08-06-2022 13:15-0400 Heart rate 57 /min Valente P House Work Phone: [facility] [address] [place] Work Phone: 08-06-2022 13:15-0400 Systolic blood pressure 132 mm[Hg] Valente P House Work Phone: [facility] [address] [place] Work Phone: 06-06-2022 09:22-0400 Body height 185.42 cm Valente P House Work Phone: [facility] 250 DO Work Phone: 06-06-2022 09:22-0400 Body mass index (BMI) [Ratio] 27.84 kg/m2 Valente P House Work Phone: [facility] [address] DO Work Phone: 06-06-2022 09:22-0400 Body surface area Derived from formula 2.2 m2 Valente P House Work Phone: [facility] [address] DO Work Phone: 06-06-2022 09:22-0400 Body weight 95.71 kg Valente P House Work Phone: [facility] [address] DO Work Phone: 06-06-2022 09:22-0400 Diastolic blood pressure 62 mm[Hg] Valente P House Work Phone: [facility] [address] DO Work Phone: 06-06-2022 09:22-0400 Heart rate 80 /min Valente Ortega House Work Phone: [facility] [address] DO Work Phone: 06-06-2022 09:22-0400 Systolic blood pressure 134 mm[Hg] Valente P House Work Phone: [facility] [address] DO Work Phone: 06-05-2022 13:14-0400 Body height 185.42 cm Valente P House Work Phone: [facility] 250 DO Work Phone: 06-05-2022 13:14-0400 Body mass index (BMI) [Ratio] 27.84 kg/m2 Valente P House Work Phone: [facility] 250 DO Work Phone: 06-05-2022 13:14-0400 Body surface area Derived from formula 2.2 m2 Valente Ortega House Work Phone: [facility] 250 DO Work Phone: 06-05-2022 13:14-0400 Body weight 95.71 kg Valente P House Work Phone: [facility] 250 DO Work Phone: 06-05-2022 13:14-0400 Diastolic blood pressure 70 mm[Hg] Valente Ortega House Work Phone: [facility] 250 DO Work Phone: 06-05-2022 13:14-0400 Heart rate 126 /min Valente P House Work Phone: [facility] 250 DO Work Phone: 06-05-2022 13:14-0400 Systolic blood pressure 124 mm[Hg] Valente Ortega House Work Phone: [facility] 250 DO Work Phone: 12-04-2021 10:00-0400 Diastolic blood pressure 83 mm[Hg] Neal Velázquez MD [facility] 12-04-2021 10:00-0400 Heart rate 82 /min Neal Velázquez MD Work Phone: [facility] [employer] 12-04-2021 10:00-0400 Respiratory rate 18 /min Neal Velázquez MD Work Phone: [facility] [employer] 12-04-2021 10:00-0400 SaO2% (BldA) [Mass fraction] 95 % Neal Velázquez MD Work Phone: [facility] [employer] 12-04-2021 10:00-0400 Systolic blood pressure 130 mm[Hg] Neal Velázquez MD Work Phone: [facility] [employer] 12-04-2021 08:00-0400 Body temperature 97.9 [degF] Neal Velázquez MD Work Phone: [facility] [employer] 11-28-2021 03:30-0400 Body height 185.4 cm Neal Velázquez MD Work Phone: [facility] [employer] 11-28-2021 03:30-0400 Body mass index (BMI) [Ratio] 27.34 kg/m2 Neal Velázquez MD Work Phone: [facility] [employer] 11-28-2021 03:30-0400 Body weight 94 kg Neal Velázquez MD Work Phone: [facility] [employer] 11-27-2021 14:19-0400 Diastolic blood pressure 88 mm[Hg] Valente P House Work Phone: [facility] 250 DO Work Phone: 11-27-2021 14:19-0400 Systolic blood pressure 139 mm[Hg] Valente P House Work Phone: [facility] 250 DO Work Phone: 11-27-2021 13:40-0400 Body height 185.42 cm Valente P House Work Phone: [facility] 250 DO Work Phone: 11-27-2021 13:40-0400 Body mass index (BMI) [Ratio] 28.63 kg/m2 Valente P [employer] Work Phone: [facility] 250 DO Work Phone: 11-27-2021 13:40-0400 Body surface area Derived from formula 2.23 m2 Valente P [employer] Work Phone: [facility] 250 DO Work Phone: 11-27-2021 13:40-0400 Body weight 98.43 kg Valente P [employer] Work Phone: [facility] 250 DO Work Phone: 11-27-2021 13:40-0400 Diastolic blood pressure 80 mm[Hg] Valente Ortega [employer] Work Phone: [facility] 250 DO Work Phone: 11-27-2021 13:40-0400 Heart rate 61 /min Valente Ortega [employer] Work Phone: [facility] 250 DO Work Phone: 11-27-2021 13:40-0400 Systolic blood pressure 174 mm[Hg] Valente Ortega [employer] Work Phone: [facility] 250 DO Work Phone: 09-17-2021 12:15-0400 Body height 185.42 cm Saurabh Olexa Other [employer] Other 09-17-2021 12:15-0400 Body mass index (BMI) [Ratio] 28.49 kg/m2 Saurabh Olexa Other [employer] Other 09-17-2021 12:15-0400 Body weight 97.98 kg Saurabh Olexa Other [employer] Other 08-29-2021 10:30-0400 Body height 185.42 cm Saurabh Olexa Other [employer] Other 08-29-2021 10:30-0400 Body mass index (BMI) [Ratio] 28.49 kg/m2 Saurabh Olexa Other [employer] Other 08-29-2021 10:30-0400 Body weight 97.98 kg Saurabh Olexa Other [employer] Other 05-22-2021 13:17-0500 Body height 185.42 cm Valente P [employer] Work Phone: [facility] 250 DO Work Phone: 05-22-2021 13:17-0500 Body mass index (BMI) [Ratio] 29.95 kg/m2 Valente P [employer] Work Phone: [facility] 250 DO Work Phone: 05-22-2021 13:17-0500 Body surface area Derived from formula 2.27 m2 Valente P [employer] Work Phone: [facility] 250 DO Work Phone: 05-22-2021 13:17-0500 Body weight 102.97 kg Valente P House Work Phone: [facility] 250 DO Work Phone: 05-22-2021 13:17-0500 Diastolic blood pressure 74 mm[Hg] Valente P House Work Phone: [facility] 250 DO Work Phone: 05-22-2021 13:17-0500 Heart rate 60 /min Valente P House Work Phone: [facility] 250 DO Work Phone: 05-22-2021 13:17-0500 Systolic blood pressure 137 mm[Hg] Valente Martinez Work Phone: -[facility] 250 DO Work Phone: Encounters Encounter Date [...] underlying condition with diabetic polyneuropathy, unspecified whether moth exterminator insulin use ([facility]); Pain due to onychomycosis of toenails of both feet; Right foot drop Start: 03-17-2024 End: 03-17-2024 ambulatory MARCIANO HI Not Available Start: 01-28-2024 End: 01-28-2024 Office outpatient visit 25 minutes Veronica Liz MD Work Phone: [facility] Comment on above: Persistent atrial fi brillation (Multi) (Primary Dx); Single vessel coronary disease; Mixed hyperlipidemia; Essential hypertension; Anemia, unspecified type; Cerebrovascular accident (CVA), unspecified mechanism (Multi); High risk medication use; Former smoker; BMI 27.0-27.9,adult Start: 01-28-2024 End: 01-28-2024 ambulatory [facility] Ambulatory Start: 01-07-2024 End: 01-07-2024 Bamboo flowsheet [...] drop Start: 01-07-2024 End: 01-07-2024 ambulatory MARCIANO HI Not Available Start: 10-29-2023 End: 10-29-2023 ambulatory MARCIANO HI Not Available Start: 08-13-2023 End: 08-13-2023 ambulatory MARCIANO HI Not Available Start: 07-30-2023 End: 07-30-2023 Office outpatient visit 25 minutes Veronica Liz MD Work Phone: [facility] Comment on above: High risk medication use (Primary Dx); Single vessel coronary disease; Essential hypertension; Mixed hyperlipidemia; Persistent atrial fibrillation (Multi); BMI 28.0-28.9,adult; Cerebrovascular accident (CVA), unspecified mechanism (Multi); Anemia, unspecified type; Former smoker Start: 07-30-2023 End: 07-30-2023 ambulatory [facility] Ambulatory Start: 06-04-2023 End: 06-04-2023 ambulatory MARCIANO HI Not Available Start: 01-29-2023 End: 01-29-2023 Office outpatient visit 25 minutes Veronica Liz MD Work Phone: [facility] Comment on above: Single vessel carvalho ry disease (Primary Dx); Essential hypertension; Mixed hyperlipidemia; Persistent atrial fibrillation (CMS/HCC); Anemia, unspecified type; BMI 28.0-28.9,adult Start: 08-25-2022 Rx Renewal Valente saul Work Phone: [facility] [place] Work Phone: Start: 08-06-2022 ambulatory Veronica Moyi lity: Start: 07-03-2022 Rx Renewal Valente P Hous e Work Phone: [facility] 250 DO Work Phone: Start: 06-06-2022 FUV, Provider: Veronica Liz, Status: Pen, Time: 9:40 AM Valente P House Work Phone: [facility] 250 DO Work Phone: Start: 06-06-2022 Office outpatient vi sit 10 minutes Valente P House Work Phone: [facility] 250 DO Work Phone: Start: 06-06-2022 ambulatory Rosyleila Liz Faci lity: Start: 06-05-2022 Office outpatient vi sit 40 minutes Valente P House Work Phone: [facility] 250 DO Work Phone: Start: 06-05-2022 ambulatory Mohancami Igorvanessa Faci lity: Start: 05-14-2022 End: 05-15-[address] VALENTE MARTINEZ Facility:H1 Start: 04-20-2022 End: 04-21-[address] VALENTE MARTINEZ Facility:H1 Start: 02-17-2022 Rx Renewal Valente P Hous e Work Phone: [facility] 250 DO Work Phone: Start: 12-20-2021 End: 12-21-[address] VALENTE MARTINEZ Facility:H1 Start: 12-05-2021 End: 12-06-[address] VALENTE MARTINEZ Facility:H1 Start: 11-28-2021 End: 12-04-2021 Evaluation and management of inpatient [facility] Start: 11-28-2021 End: 12-04-2021 Evaluation and management of inpatient Neal Velázuqez MD Work Phone: [facility] 1B Neuro ICU Comment on above: Cerebrovascular acci dent (CVA), unspecified mechanism (HCC) (Primary Dx); Hyponatremia Start: 11-28-2021 End: 11-28-[address] BENITA PATTERSON . Facility:H1 Start: 11-27-2021 Office outpatient vi sit 25 minutes Valente Martinez Work Phone: [facility] 250 DO Work Phone: Start: 11-27-2021 ambulatory Veronica Liz Faci lity: Start: 11-18-2021 Rx Renewal Valente saul Work Phone: [facility] 250 DO Work Phone: Start: 09-23-2021 ambulatory Jeevan Ryanahim Facility :[id number] Start: 09-23-2021 End: 09-23-2021 ambulatory Jeevan [facility] Facility:[facility] Start: 09-22-2021 End: 09-23-[address] ANN MANLEY Facility:H1 Start: 09-17-2021 End: 09-17-2021 ambulatory Saurabh Olexa Other [employer] Other Start: 09-17-2021 Postop follow up vis it related to original px Saurabh Olexa [facility] Start: 08-29-2021 End: 08-29-2021 ambulatory Saurabh Olexa Other [employer] Other Start: 08-29-2021 FQ visit new patient Saurabh Brothersxa [facility] Start: 08-26-2021 End: 08-26-[address] VALENTE MARTINEZ Facility:H1 Start: 08-22-2021 End: 08-22-[address] VALENTE MARTINEZ Facility:H1 Start: 05-22-2021 Office outpatient vi sit 25 minutes Valente Martinez Work Phone: [facility] 250 DO Work Phone: Start: 06-10-2018 Patient [...] metabolic pane l calcium total Adina Do MOVIE EDITOR - [employer] WORK[employer] Work Phone: Start: 12-03-2021 Glucose blood reagent strip Allan Chirri DO Work Phone: Start: 12-03-2021 End: 12-03-2021 Assay of osmolality urine Mohammad I Mas haydee DO Work Phone: Start: 12-03-2021 Glucose blood reagent strip Allan Chirri DO Work Phone: Start: 12-03-2021 Basic metabolic pane l calcium total Adinamyranda Do MOVIE EDITOR - [employer] WORKER Work Phone: Start: 12-02-2021 Glucose blood reagent [...] metabolic pane l calcium total Amanda Garcia MOVIE EDITOR - [employer] WORKER Work Phone: Start: 11-30-2021 Glucose blood reagent strip Allan Chirri DO Work Phone: Start: 11-30-2021 Echo tthrc r-t 2d w/wom-mode compl spec&colr d Yolie Cabrera MD Work Phone: Start: 11-30-2021 Glucose blood reagent strip Allan Chirri DO Work Phone: Start: 11-30-2021 End: 11-30-2021 Basic metabolic panel calcium total Amanda Garcia MOVIE EDITOR - AMMONIA WORKER Work Phone: Start: 11-29-2021 Glucose blood reagent strip Allan Chirri DO Work Phone: Start: 11-29-2021 Glucose blood reagent strip Neal Velázquez MD Work Phone: Start: 11-29-2021 Ecg routine ecg w/le ast 12 lds i&r only Marilu Atkins MOVIE EDITOR - [employer]IA WORKER Work Phone: Start: 11-29-2021 Glucose blood reagent strip Neal Velázquez MD Work Phone: Start: 11-29-2021 Assay of magnesium Neal Velázquez MD Work Phone: Start: 11-29-2021 Ct head/brain w/o co ntrast material Isidro Mehta MD Work Phone: Start: 11-29-2021 Glucose blood reagent strip Neal Velázquez MD Work Phone: Start: 11-29-2021 Basic metabolic pane l calcium total Amanda M Jose MOVIE EDITOR - AMMONIA WORKER Work Phone: Start: 11-29-2021 Glucose blood reagent [...] procedure 08/03/2024 3:30 PM EDT Office Visit [facility] [address] [facility] [address] [place] [phone] Veronica Liz MD [address] [facility] [address] [place] [address] [place] [address] [facility] Start: 05-26-2024 End: 05-26-2024 Patient encounter procedure 05/26/2024 1:40 PM EST Procedure Visit [facility] [address] [facility] [address] [place] [phone] Marciano Hi DPM [address] [address] [facility] Start: 03-17-2024 End: 03-17-2024 Patient encounter procedure 03/17/2024 1:50 PM EST Procedure Visit [facility] [address] [facility] [address] [place] [phone] Marciano Hi DPM [address] [address] [facility] Start: 03-17-2024 End: 03-17-2024 Patient encounter procedure 03/17/2024 11:50 AM EST [facility] [address] [facility] 120 [place] [phone] Marciano Hi DPM [address] [address] Diabetes 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, unspecified whether moth exterminator insulin use (CMS/HCC) (Primary Dx); Pain due to onychomycosis of toenails of both feet; Right foot drop; Xerosis cutis [facility] Comment on above: Diabetes mellitus du e to underlying condition with diabetic polyneuropathy, unspecified whether alf insulin use (CMS/HCC) (Primary Dx); Pain due to onychomycosis of toenails of both feet; Right foot drop; Xerosis cutis Start: 01-28-2024 End: 01-28-2024 Patient encounter procedure 01/28/2024 3:10 PM EST Office Visit [facility] [address] [facility] 250 [place] [address] Veronica Lzi MD [address] [facility] [address], [place] [address] [place] [address] [facility] Start: 01-07-2024 End: 01-07-2024 Patient encounter procedure 01/07/2024 2:00 PM EDT Procedure Visit [facility] [address] [phone] Marciano Hi DPM [address] [address] Onychomycosis (Primary Dx); Pain due to onychomycosis of toenails of both feet; Right foot drop; Xerosis cutis [facility] Comment on above: Onychomycosis (Prima ry Dx); Pain due to onychomycosis of toenails of both feet; Right foot drop; Xerosis cutis Start: 11-22-2023 COVID-19 Vaccine ( season) COVID-19 Vaccine ( season) [facility] Start: 11-22-2023 Influenza vaccination [facility] Start: 07-30-2023 End: 07-30-2023 Patient encounter procedure 07/30/2023 3:00 PM EDT Office Visit [facility] [address] [facility] 250 [place] [phone] Veronica Liz MD [address] [facility] [address] [place] [address] [place] [address] [facility] Start: 01-29-2023 FUV, Provider: Veronica Liz, Status: Pen, Time: 3:10 PM FUV, Provider: Veronica Liz, Status: Pen, [facility]: 3:[facility] [place] Work Phone: Start: 11-28-2022 Diabetes mellitus screening Diabetes Screening [facility] Start: 11-28-2022 Hemoglobin A1c measurement A1C test (Diabetic or Prediabetic) [facility] Start: 11-28-2022 Lipid panel Lipids [facility] Start: 11-21-2022 COVID-19 Vaccine ( season) COVID-19 Vaccine () [facility] Start: 11-21-2022 Influenza vaccination Influenza Vacc ine (#1) [facility] Start: 08-06-2022 FUV, Provider: Veronica Liz, Status: Pen, Time: 1:30 PM FUV, Provider: Veronica Liz, Status: Pen, Time: [facility] [facility]: Start: 06-05-2022 FUV, Provider: Veronica Liz, Status: Pen, Time: 1:20 PM FUV, Provider: Veronica Liz, Status: Pen, Time: 1:20 PM [facility] 250 DO Work Phone: Start: 02-27-2022 Hemoglobin A1c measurement Diabetes: Hemoglobin A1C [facility] Start: 01-27-2022 End: 01-27-2022 Patient encounter procedure 01/27/2022 Office Visit Neurology Jasmin Corrales MD [address] [place] [address] [employer] [facility] Start: 12-31-2021 NURSEVST, Provider: SURJIT TIRADO ICE CREAM MIXER 1,[id number], Status: Pen, Time: 1:30 PM NURSEVST, Provider: SURJIT TIRADO [employer] MIXER 1,[id number], Status: Pen, Time: 1:[address] [facility] 250 DO Work Phone: Start: 12-19-2021 End: 11-30-2022 CT HEAD WO CONTRAST CT HEAD WO CONTRAST Imaging Routine Cerebrovascular accident (CVA), unspecified mechanism (HCC) Expected: 12/19/2021, Expires: 11/30/2022 [employer] Phone: Comment on above: Expected: 12/19/2021 , Expires: 11/30/2022 Start: 12-10-2021 End: 01-02-2022 Basic metabolic 2000 panel - Serum or Plasma Basic Metabolic Panel Lab Routine Hyponatremia Expected: 12/10/2021, Expires: 01/02/2022 [employer] Phone: Comment on above: Expected: 12/10/2021 , Expires: 01/02/2022 Start: 11-27-2021 FUV, Provider: Veronica Liz, Status: Pen, Time: 1:30 PM FUV, Provider: Veronica Liz, Status: Pen, Time: 1:30 PM [facility] 250 DO Work Phone: Start: 11-21-2021 Influenza vaccination Flu vaccine (# 1) [facility] Start: 2021 RSV High Risk: (Elde rly (60+) or Population) (1 - 1-dose 75+ series) RSV High Risk: (Elderly (60+) or Population) (1 - 1-dose 75+ series) [facility] Start: 05-18-2021 COVID-19 Vaccine (4 - Booster for Pfizer series) COVID-19 Vaccine (4 - Booster for Pfizer series) [facility] Start: 03-12-2021 COVID-19 Vaccine (4 - Pfizer series) COVID-19 Vaccine (4 - Pfizer series) [facility] Start: 10-24-2011 Abdominal aortic aneurysm screening AAA screen [facility] Start: 2006 RSV patient s and/or patients aged 60+ years (1 - 1-dose 60+ series) RSV patients and/or patients aged 60+ years (1 - 1-dose 60+ series) [facility] Start: 1996 Shingles vaccine (1 of 2) Shingles vaccine (1 of 2) [facility] Start: 1996 Zoster Vaccines (1 o f 2) Zoster Vaccines (1 of 2) [facility] Start: 10-24-1991 Screening for malign ant neoplasm of colon [facility] Start: 1968 DTaP/Tdap/Td Vaccine s (1 - Tdap) DTaP/Tdap/Td Vaccines (1 - Tdap) [facility] Start: 1965 DTaP/Tdap/Td vaccine (1 - Tdap) DTaP/Tdap/Td vaccine (1 - Tdap) [facility] Start: 1965 Urine screening for protein Diabetes: Urine Protein Screening [facility] Start: 1964 Diabetic retinal exam Diabetic retin al exam [facility] Start: 1964 Hepatitis C screening B ON [facility] Start: 1958 Depression Screen Depression Screen [facility] Start: 1956 Diabetic foot examination Diabetic foot exam [facility] Start: 1956 Glaucoma screening Diabetes: R etinopathy Screening [facility] Start: 1952 Pneumococcal 65+ yea rs Vaccine (1 - PCV) Pneumococcal 65+ years Vaccine (1 - PCV) [employer] Start: 1952 Pneumococcal Vaccine : 65+ Years (1 - PCV) Pneumococcal Vaccine: 65+ Years (1 - PCV) [facility] Start: 1952 Pneumococcal Vaccine : 65+ Years (1 of 2 - PCV) Pneumococcal Vaccine: 65+ Years (1 of 2 - PCV) [facility] Start: 1946 Annual Wellness Visi t (AWV) Annual Wellness Visit (AWV) [employer] Start: 1946 Lipid panel Lipid Panel [facility] Start: 1946 Medicare Annual Wellness (AWV) Medicare Annual Wellness (AWV) [facility] Start: 1946 Medicare Annual Wellness Visit Medicare Annual Wellness Visit (AWV) [facility] End: 12-05-2021 Basic metabolic 2000 panel - Serum or Plasma Basic Metabolic Panel Lab Routine Daily for 3 Days starting 12/03/2021 until 12/05/2021, 2 completed [employer] Phone: Comment on above: Daily for 3 Days sta rting 12/03/2021 until 12/05/2021, 2 completed End: 12-05-2021 CBC W Auto Differential panel - Blood CBC with Auto Differential Lab Routine Daily for 3 Days starting 12/03/2021 until 12/05/2021, 2 completed [employer] Phone: Comment on above: Daily for 3 Days sta rting 12/03/2021 until 12/05/2021, 2 completed Continuous pulse oximetry Pulse oximetry, continuous Respiratory Care Routine Every 4hr until discontinued starting 11/28/2021 [employer] Phone: Comment on above: Every 4hr until disc ontinued starting 11/28/2021 Glucose [Mass/volume ] in Serum or Plasma [employer] Phone: Comment on above: 4X Daily (AC & HS) u ntil discontinued starting 11/28/2021 As Needed until disc ontinued starting 11/28/2021 Oxygen therapy [[facility]] Initiate Oxygen Therapy Protocol Respiratory Care Routine As Needed until discontinued starting 11/28/2021 [employer] Phone: Comment on above: As Needed until disc ontinued starting 11/28/2021 End: 11-28-2021 TRUCK LOADER clinical swallow evaluation TRUCK LOADER clinical swallow evaluation TRUCK LOADER Routine One Time for 1 Occurrences starting 11/28/2021 until 11/28/2021 [employer] Phone: Comment on above: One Time for 1 Occur rences starting 11/28/2021 until 11/28/2021 End: 11-28-2021 Speech and language therapy regime Speech Language Pathology (TRUCK LOADER) eval and treat TRUCK LOADER Routine One Time for 1 Occurrences starting 11/28/2021 until 11/28/2021 [employer] Phone: Comment on above: One Time for 1 Occur rences starting 11/28/2021 until 11/28/2021 Immunizations Immunization Date Immunization Notes Care Provider [facility] 01-15-2021 Pfizer-BioNTech COVID-19 Vacc 30 MCG/0.3ML Intramuscular Suspension [employer] Work Phone: [facility] Comment on above: Series: 06-12-2020 Pfizer-BioNTech COVID-19 Vacc 30 MCG/0.3ML Intramuscular Suspension [employer]ael[employer] Work Phone: [facility] 05-21-2020 Pfizer-BioNTech COVID-19 Vacc 30 MCG/0.3ML Intramuscular Suspension Valente Acorio Work Phone: [facility] Comment on above: Series: 03-23-2017 influenza virus vaccine, unspecified formulation Valente P [employer] Work Phone: [facility] 250 DO Work Phone: Payers Date Payer Category Payer Self-pay [id number] 2011 Medicare [id number] 1959 Medicare [id number] 1945 Unknown [id number] 2.16.8 40.1.659073.3.579.2.355 1945 Unknown [id number] 2.16. 840.1.916461.3.579.2.175 1945 Unknown [id number] 2.16.84 0.1.269796.3.579.2.593 1946 Unknown [id number] 2.16.84 0.1.773638.3.579.2.593 1946 Unknown [id number] 2.16.84 0.1.351658.3.579.2.593 1946 Unknown [id number] 2.16.84 0.1.258607.3.579.2.593 1946 Unknown [id number] 2.16.84 0.1.634378.3.579.2.593 1946 Unknown [id number] 2.16.84 0.1.375969.3.579.2.593 1946 Unknown [id number] 2.16.84 0.1.249919.3.579.2.593 1946 Unknown [id number] 2.16.84 0.1.737354.3.579.2.593 1946 Unknown [id number] 2.16. 840.1.583147.3.579.2.356 1946 Unknown [id number] 2.16. 840.1.988889.3.579.2.356 1946 Unknown [id number] 2.16. 840.1.487606.3.579.2.356 1946 Unknown [id number] 2.16. 840.1.463729.3.579.2.356 1946 Unknown [id number] 2.16. 840.1.297855.3.579.2.356 1946 Unknown [id number] 2.16.840.1.466299.3.579.2.1244 1946 Unknown [id number] 2.16.8 40.1.535056.3.579.2.1244 1946 Unknown [id number] 2.16.84 0.1.555362.3.579.2.1259 1946 Unknown [id number] 2.16.84 0.1.539837.3.579.2.1259 1946 Unknown [id number] 2.16.84 0.1.739524.3.579.2.1259 1946 Unknown [id number] 2.16.84 0.1.299378.3.579.2.1259 1946 Unknown [id number] 2.16.84 0.1.274265.3.579.2.1259 Unknown Unknown HCAP/HFA/FAP Active [id number] Unknown [id number] 2.16.8 40.1.839618.3.579.2.531 Social History Date Type Detail Facility Start: 01-29-2023 End: 03-17-2024 No illicit drug use No illicit drug use [place] [address] DO Work Phone: Comment on above: 1 BEER OCCASIONALLY; 2 CUPS OF COFFEE ELVIN LY; QUIT MAR 2019; Start: 01-29-2023 End: 03-17-2024 Sex Assigned At [facility] [employer] Other Start: 12-02-2021 End: 07-30-2023 Tobacco smoking status DCIS Ex-smoker [employer] Phone: End: 03-23-2018 History of tobacco use Current smoker [employer] Phone: End: 03-23-2018 History of tobacco use Cigarette Smoker [employer] Phone: Start: 12-02-2021 End: 03-17-2024 Alcohol intake Current drinker of alcohol (finding) [employer] Phone: Start: 11-28-2021 History SDOH Alcohol Frequency 2 [employer] Phone: Start: 11-28-2021 History SDOH Alcohol Std Drinks 3 [employer] Phone: Start: 12-02-2021 History SDOH Alcohol Comment occ beer [employer] Phone: Start: 1945 Sex Assigned At Not on file [employer] Phone: Start: 11-18-2021 End: 01-28-2024 Exposure to SARS-CoV-2 (event) Not sure [employer] Phone: Start: 1945 Sex Assigned At Male [facility] Start: 01-29-2023 End: 07-30-2023 Tobacco use and exposure Smokeless tobacco non-user [facility] Work Phone: Start: 01-29-2023 Alcohol Comment occasionally [facility] Work Phone: Start: 06-04-2023 Tobacco smoking status NHIS Tobacco smoking consumption unknown [facility] Start: 06-04-2023 Alcohol Comment coffee daily [facility] NEGATED: Highlighted rowStart: NINF History of tobacco use Passive smoker [facility] Medical Equipment Procedure Code Equipment Code Equipment Origin al Text Equipment Identifier Dates Capsule endoscopy, for patency of lumen evaluation Video capsule endoscopy system [id number] FDA Start: 10-20-2019 Femoral artery closure plug/patch, synthetic polymer [id number] FDA Start: 03-31-2019 Clinical Notes 08-26-2021 to 03-17-2024 Marciano Hi DPM - 03/17/2024 11:50 AM Pranav Liz MD - 01/28/2024 3:10 PM ESTPatient InstructionsAttachmentsMarciano Hi DPM - 01/07/2024 2:00 PM EDTPatient Instructions Note Date & Type Note Facility 03-17-2024 History of Present illness Narrative Patient: Shahrazd Edgar : 1945 PCP: [facility] Provider MD [...] has periodically been using prescribed or recommended alie-bnb-jxflvjs cream with negative improvement. Patient also states he had cold exposure for many years to his feet Patient has history of right foot drop secondary to spinal surgery in the past and refused AFO rx in the past. Allergies: No Known Allergies Past Medical History: Past Medical History: Diagnosis Date Diabetes ([facility]) Medications: Current Outpatient Medications: aspirin 81 MG [...] and negative PT pedal pulses NEURO: 5.07 [employer] monofilament test diminished to digits and forefoot bilaterally 125Hz tuning fork diminished to 1st MPJ bilaterally ORTHO: Positive pain on palpation to nails 1 through 10 +4/5dorsiflexion right ankle ASSESSMENT 1. Diabetes 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, unspecified whether alf insulin use ([facility]) 2. Pain due to onychomycosis of toenails [...] . Patient states that he will use scld-joc-ciwuprw creams as necessary Marciano Hi DPM documented in this encounter [facility] 01-28-2024 History of Present illness Narrative [...] fibrillation. [facility] time [facility] repeat EKG today he is in [...] discussion and plan. documented in this encounter [facility] Work Phone: 01-28-2024 Instructions Carline López LPN [...] be sent through Care Everywhere.Heart Healthy Diet (Malian)documented in this encounter [facility] Work Phone: 01-07-2024 History of Present illness [...] has periodically been using prescribed or recommended ugtn-boj-sjqsode cream with minimal improvement. Patient also states he had cold exposure for many years to his feet Patient has history of right foot drop secondary to spinal surgery in the past and refused AFO rx in the past. Allergies: No Known Allergies Past Medical History: Past Medical History: Diagnosis Date Diabetes ([facility]) Medications: Current Outpatient Medications: aspirin 81 MG [...] and negative PT pedal pulses NEURO: 5.07 [employer] monofilament test diminished to digits and [...] . Patient states that he will use rvpr-rdb-fiyvoub creams as necessary Marciano Hi DPM documented in this encounter [facility] 07-30-2023 History of Present illness Narrative [...] discussion and plan. documented in this encounter [facility] Work Phone: 07-30-2023 Instructions Shaina Floyd LPN [...] months with ekg documented in this encounter [facility] Work Phone: 01-29-2023 History of Present illness [...] in office today documented in this encounter [facility] Work Phone: 01-29-2023 Instructions Clyde Nunez MA [...] of your visit. documented in this encounter [facility] Work Phone: 06-05-2022 History of Present illness [...] try to retrieve retrieve his record from [place] [address] DO Work Phone: 12-03-2021 History of Present illness Narrative Images from the original note were not included. [employer] Progress Note Date: 12/03/2021 Patient name: Shahrzad [...] insulin (HCC) COPD (chronic obstructive pulmonary disease) ([facility]) [id number] Score for Atrial Fibrillation Stroke Risk Risk Factors Component Value C CHF No 0 H HTN Yes 1 A2 Age >= 75 Yes, (76 y.o.) 2 D DM Yes 1 S2 Prior Stroke/TIA No 0 V Vascular Disease No 0 A Age 65-74 No, (76 y.o.) 0 Sc Sex male 0 [id number] Score 4 Score last updated 12/03/21 10:13 [...] Please call with further questions or concerns [place] [employer] [phone] [facility] Neurology IN-PATIENT SERVICE [facility] Progress Note Date: 12/03/2021 Patient name: Shahrzad Edgar Date of admission: 11/28/2021 3:15 AM Account: [id number] Date of : 1945 PCP: No primary care provider on file. Room: [address] [place] [address] Code Status: Full Code Chief Complaint: Right [...] He is eager to be discharged to [facility]. Patient counseled regarding treatment follow-up plan, [...] temporal headache with dizziness. Initially evaluated at [facility] and later transferred to [facility] after CT head was done showing [...] ms QTc Calculation (Bazett) 516 ms R [place] 23 degrees T [place] 48 degrees POC Glucose Fingerstick Collection Time: [...] 1.07 (L) 1.10 - 3.70 k/uL Absolute Caroline # 1.20 0.10 - 1.20 k/uL Absolute [...] Assessment : Primary Problem Cerebrovascular accident (CVA) ([facility]) Active Hospital Problems Diagnosis Date Noted Atrial fibrillation with RVR ([facility]) [I48.91] 12/02/2021 Priority: Medium Type 2 diabetes mellitus without complication, without long-term current use of insulin ([facility]) [E11.9] 12/02/2021 Priority: Medium Primary hypertension [I10] 12/02/2021 Priority: Medium COPD (chronic obstructive pulmonary disease) ([facility]) [J44.9] 12/02/2021 Priority: Medium PAF (paroxysmal atrial fibrillation) ([facility]) [I48.0] 11/29/2021 Priority: Medium Anemia [D64.9] 11/29/2021 Priority: Medium Cerebrovascular accident (CVA) ([facility]) [I63.9] 11/28/2021 Priority: Medium Otitis media with [...] medical management PT/OT/ST Plan for discharge to [facility] today Follow-up further recommendations after discussing [...] history and exam findings with the resident/ AMMONIA WORKER. I reviewed medications, clinical labs, x-rays and other diagnostic tests with the resident/ AMMONIA WORKER. I have seen and examined the patient and the lamas elements of the encounter have been performed by me. I agree with the assessment, plan and orders as documented by the resident or AMMONIA WORKER. Impression and Plan: Mr. Shahrzad Edgar is [...] from the original note were not included. [facility] Office: [phone] Darrius Mattson DO, Valente Kaur DO, Noel Lin DO, Gilles Mantilla DO, Ernst Pond MD, Sara Dalal MD, Lizbet Grossman [...] Irby MD, Lewis See MD, Blanka Martin, AMMONIA WORKER, Nicky Gonzalez CNP, Pattie Vasquez, AMMONIA WORKER, Prem Potter, AMMONIA WORKER, Adrienne Domingo, DNP, Marissa Hamilton, AMMONIA WORKER, Lida Soto, AMMONIA WORKER, Rosmery Bryan CNP, Cici Antoine CNP, Leslie Chen, AMMONIA WORKER, TIARRA SandersC, Kathy Wilder, ORDER PICKER/ASSEMBLER, Janet Bar, MIYA, Triny Francois, AMMONIA WORKER, Mary Ortiz, AMMONIA WORKER, Sue Rivera, LAURENCE [facility] IN-PATIENT SERVICE [facility] Progress Note 12/03/2021 8:19 AM Name: Shahrzad Edgar Acct: [id number] Room: [address] [place] [address] Day: 5 Admit Date: 11/28/2021 3:15 AM [...] results found for: POCPH, PHART, PH, POCPCO2, HOA8MRE, PCO2, POCPO2, PO2ART, PO2, POCHCO3, DNN8OLF, HCO3, NBEA, PBEA, BEART, BE, THGBART, THB, YFT4MNM, EWKQ4TAI, B7ZPUYLM, O2SAT, FIO2 Lab Results Component Value Date/Time [...] Modified POA * (Principal) Cerebrovascular accident (CVA) ([facility]) 11/30/2021 Yes Otitis media with effusion, left 11/28/2021 Yes PAF (paroxysmal atrial fibrillation) ([facility]) 12/02/2021 Yes Anemia 11/29/2021 Yes Atrial fibrillation with RVR ([facility]) 12/02/2021 No Primary hypertension 12/02/2021 Yes Type 2 diabetes mellitus without complication, without long-term current use of insulin ([facility]) 12/02/2021 Yes COPD (chronic obstructive pulmonary disease) ([facility]) 12/02/2021 Yes Plan: Middle ear mastoid effusion: [...] DO 12/03/2021 8:19 AM Physical Therapy Facility/Department: [address] NEURO ICU Daily Treatment Note NAME: [...] verbally reminded to do so; able to seat joiner margie stedy with max A+1, again leans [...] with least restrictive AD Additional Goals?: No Ecological Risk Assessor Goals Additional Goals?: No Education Patient Education Education Given To: Patient Education Provided: Role of Therapy;Plan of Care;Precautions;Transfer Training;Fall Prevention Strategies Education Method: Demonstration;Verbal;Teach Back Barriers to Learning: Cognition Education Outcome: Continued education needed Therapy Time Individual Concurrent Group Co-treatment Time In 1411 Time Out 1521 Minutes 70 Timed Code Treatment Minutes: 47 Minutes Zach Thakur, PT Speech Language Pathology Speech Language Pathology [facility] Cognitive and Speech Treatment Note Date: 12/02/2021 Patient s Name: Shahrzad Edgar Diagnosis: Patient Active Problem List Diagnosis Code Cerebrovascular accident (CVA) ([facility]) I63.9 Otitis media with effusion, left H65.92 History of atrial fibrillation Z86.79 Anemia D64.9 Pain: 0/10 Cognitive Treatment Treatment time: 2239-9801 Subjective: [x] Alert [x] Cooperative [] Confused [] Agitated [] Lethargic Objective/Assessment: Recall: Delayed Recall - Associated Lists: 11/29 independently Organization: Category Members - Norris: 02/01 increased to 03/03 with mod verbal [...] recommended at discharge. Completed by: Sheri Serna Securities Adviser Clinician Cosigned By: Ayla White M.S.CCC/TRUCK LOADER [place] [employer] Documentation Note Admission Dx: Brain mass [G93.89] Past Medical History: has a past medical history of Arthritis, COPD (chronic obstructive pulmonary disease) (HCC), Diabetes mellitus (HCC), History of blood transfusion, and Hypertension. Previous Testing: ECHO 11/30/2021: EF 54%, negative bubble study, no valvular abnormalities. Previous office/hospital visit: None Evelin Griffin RN [place] [employer] NEUROLOGY INPATIENT PROGRESS NOTE 12/01/2021 Subjective: Shahrzad [...] not help. Patient was initially evaluated at [facility] and noted to have left upper extremity [...] prior to transfer over. Upon arrival at [place], patient's blood pressure was normotensive. Evaluated by [...] started at that time. Continue on Statin PT/OT/TRUCK LOADER Urinary retention - will obtain urology consulation [...] completed at the bedside. Physical Therapy Facility/Department: [address] NEURO ICU Daily Treatment Note Name: [...] with least restrictive AD Additional Goals?: No Senior Living Goals Additional Goals?: No Education Patient Education [...] who was admitted as a transfer from [facility] on 11/28/2021 for R temporal headache. Patient reported he had developed right temporal headache and dizziness on the day of arrival. Excedrin did not help. He was seen by his vice president financial and was told that his BP was elevated; he was started on lisinopril 5 mg daily. He was initially evaluated at [facility]. Patient was noted to have left upper [...] IVPB x1 prior to be transferred to [facility] for higher level of care. Patient was [...] to ensure the accuracy of this automated market intelligence consultant, some errors in market intelligence consultant may have occurred. Associated attestation - Allan [...] all. Neuro MD notified Occupational Therapy Facility/Department: [address] NEURO ICU Occupational Therapy Initial Assessment [...] use in appartment) Transfer Assistance: Independent Active Process Project Engineer: Yes Mode of Transportation: Car Occupation: Retired [...] TherAct) MUNDO Richey OTR/L Physical Therapy Facility/Department: [address] NEURO ICU Physical Therapy Initial Assessment [...] exact time). He was initially evaluated at [facility]. Patient was reported to have been at vice president financial earlier today, and BP was elevated, but patient unable to state how elevated. No improvement with Excedrin. Patient denies any other blood thinners aside from aspirin. At [facility] patient noted to have clear speech, [...] did have purulent material. CT head from [facility] showed area of hypoattenuation in right [...] use in appartment) Transfer Assistance: Independent Active Process Project Engineer: Yes Mode of Transportation: Car Occupation: Retired [...] sitting EOB for ~13 mins. AM-PAC Score [facility] Inpatient Mobility Raw Score : 9 (11/29/211544) [facility] Inpatient T-Scale Score : 30.55 (11/29/211544) Mobility Inpatient CMS 0-100% Score: 81.38 (11/29/211544) Mobility Inpatient [facility] G-Code Modifier : CM (11/29/21 154) Goals [...] with least restrictive AD Additional Goals?: No Ecological Risk Assessor Goals Additional Goals?: No Education Patient Education [...] Patient's name: Shahrzad Edgar Patient's account/billing number: [id number] Patient's Date of : 1945 Age: 76 y.o. Date of Admission: 11/28/2021 3:15 AM Length of stay during current admission: 1 Primary Care Physician: No primary care provider on file. Code Status: Full Code Mode of physician to physician communication: [] Via telephone [x] In person Date and time of sign-out: 11/29/2021 2:50 PM Accepting Neurology DIRECTOR OF EVENT MARKETING: Adina Do NP Accepting team's attending: Dr. [...] PM Speech Language Pathology Speech Language Pathology [facility] Dysphagia Treatment Note Date: 11/29/2021 Patient s [...] Provided with Soft Solids, Puree, Thin and [place] thick trials. Pt. With no overt s/s [...] at discharge. Treatment completed by: Ayla White TRUCK LOADER, M.S. CCC-TRUCK LOADER Speech Language Pathology Speech Language Pathology [facility] Cognitive and Speech Treatment Note Date: 11/29/2021 [...] 8/9 with repetitions Organization: Category Members - Norris: 27/36 increased to 36/36 with min-mod verbal [...] recommended at discharge. Completed by: Sheri Serna Securities Adviser Clinician Cosigned By: Ayla White M.S.CCC/TRUCK LOADER Images from the original note were not [...] Name: Shahrzad Edgar Patient : 1945 Room/Bed: [address] [place], [place] [address] Code Status: Full Code Allergies: Allergies Allergen [...] Left: downgoing Clonus: absent Coordination/Dysmetria: Heel to Aplacio: Right: normal Finger to Nose: Right: normal [...] Guevara Kaur DO Neuro Critical Care Pager [phone] 11/29/2021 6:48 AM Associated attestation - Neal Velázquez MD - 11/29/2021 10:14 AM EDT I [...] prophylaxis. Maintain SBP < 160. Incentive spirometry. TRUCK LOADER eval. PT/OT. Insulin sliding scale. Stepdown. Discharge planning. I independently reviewed all labs, imaging and EKG tracings Speech Language Pathology Facility/Department: [address] NEURO ICU CLINICAL BEDSIDE SWALLOW EVALUATION [...] exact time). He was initially evaluated at [facility]. Patient was reported to have been at vice president financial earlier today, and BP was elevated, but patient unable to state how elevated. No improvement with Excedrin. Patient denies any other blood thinners aside from aspirin. [facility] patient noted to have clear [...] did have purulent material. CT head from [facility] showed area of hypoattenuation in right [...] prior to transfer to Neuro ICU at [place]. Pain: Pain Assessment Pain Assessment: 0-10 Pain [...] with partial PO only Treatment Plan Requires TRUCK LOADER Intervention: Yes D/C Recommendations: Ongoing speech therapy [...] Patient Education Response: Needs reinforcement Therapy Time 8629-2851 ROBBY Hall 11/28/2021 3:02 PM Speech Language Pathology Facility/Department: [address] NEURO ICU Initial Speech/Language/Cognitive Assessment NAME: [...] exact time). He was initially evaluated at [facility]. Patient was reported to have been at vice president financial earlier today, and BP was elevated, but [...] did have purulent material. [facility] showed area of hypoattenuation in [...] prior to transfer to Neuro ICU at [place]. Pain: Pain Assessment Pain Assessment: 0-10 Pain [...] noted deficits. Education provided. Recommendations: Recommendations Requires TRUCK LOADER Intervention: Yes Patient Education: yes Patient Education [...] With: Friend(s) Type of Home: Apartment Active Process Project Engineer: Yes Vision Vision: Within Functional Limits Hearing [...] 1058 Minutes 12 Completed by: Sheri Serna Securities Adviser Clinician Cosigned By: Ayla White M.S.CCC/TRUCK LOADER [facility] Pharmacokinetic Monitoring Service - Vancomycin Shahrzad [...] 6:35 AM documented in this encounter [facility] [employer] Phone: 12-02-2021 Hospital Discharge instructions Yair Schofield RN - 12/02/2021 2:45 PM EDT Continuity of Care Form Patient Name: Shahrzad Edgar : 1945 Admit date: 11/28/2021 Discharge date: 12/03/2021 Code Status Order: Full Code Advance Directives: Admitting Physician: Allan Pemberton DO PCP: No primary care provider on file. Discharging Nurse: yair Discharging Hospital Unit/Room#: 0122/0122-01 Discharging Unit Phone Number: [phone] Emergency Contact: Extended Emergency Contact Information Primary Emergency Contact: nadine allen Relation: Other Preferred language: Malian Freight Caller needed? No Past Surgical History: No past surgical history on file. Immunization History: Immunization History Administered Date(s) Administered COVID-19, PFIZER PURPLE top, DILUTE for use, (age 12 y+), 30mcg/0.3mL 05/21/2020, 06/12/2020, 01/15/2021 Active Problems: Patient Active Problem List Diagnosis Code Cerebrovascular accident (CVA) ([facility]) I63.9 Otitis media with effusion, left H65.92 [...] Assisted Dressing Assisted Toileting Independent Feeding Independent Stitcher Tape Controlled Machine Independent Med Delivery whole Wound Care Documentation [...] Dysphagia soft Routes of Feeding: Oral Liquids: [place] Thick Liquids Daily Fluid Restriction: 1500 Last [...] Readmission: 13 Discharging to Facility/ Agency Name: [facility] Address: Phone: Fax: Dialysis Facility (if applicable) Name: Address: Dialysis Schedule: Phone: Fax: Fire Protection Designer/Mastic Worker signature: PHYSICIAN SECTION Prognosis: {Prognosis:5863456173} Condition at Discharge: { Patient Condition:876179983} Rehab Potential (if transferring to Rehab): {Prognosis:1934506826} Recommended Labs or Other Treatments After Discharge: Physician Certification: I certify the above information and transfer of Shahrzad Edgar is necessary for the continuing treatment of the diagnosis listed and that he requires {Admit to Appropriate Level of Care:21901} for {GREATER/LESS:802485268} 30 days. Update Admission H&P: {CHP DME Changes in HandP:844072330} PHYSICIAN SIGNATURE: The following attachments cannot be sent through Care Everywhere.[place] (Malian)Ischemic Stroke: General Info (Malian)Stroke: Symptoms: General Info (Malian)Diabetes: Heart Attack and Stroke Risk: General Info (Malian)documented in this encounter [facility] [employer] Work Phone: 09-17-2021 Evaluation note Encounter Date Diagnosis Assessment Notes Aug, Left hand pain (ICD-10 - M79.642) Aug, Closed displaced fracture of proximal phalanx of left little finger with routine healing, subsequent encounter (ICD-10 - S62.617D) Radiographs reviewed with patient today. Discussed with patient to work on range of motion exercises [employer] Other 06-09-2022 Evaluation note* Encounter Date Diagnosis [...] and elevate to decrease pain and swelling. [employer] Other 06-06-2022 NotePROCEDURE: XR HAND LT MIN 3V COMPARISON: None. HISTORY: Pain FINDINGS: BONES:Subtle contour deformity identified at the base of the fifth proximal phalanx. No dislocation. Mild degenerative changes. SOFT TISSUES:Negative. No visible soft tissue swelling. EFFUSION:None visible. OTHER: Negative. IMPRESSION: Suspected nondisplaced fracture base of the fifth proximal phalanx Electronically authenticated by: REINA GO Date: 2021-08-26 10:45[facility] Diagnosis Cerebrovascular accident (CVA), unspecified [...] airway obstruction, not elsewhere classified Hemorrhagic stroke ([facility]) Intracerebral hemorrhage documented in this encounter [facility] Work Phone: evaluation noteNo assessment information available [facility] Work Phone: Evaluation note* Diagnosis Single vessel coronary disease- Primary Essential hypertension Unspecified essential hypertension Mixed hyperlipidemia Persistent atrial fibrillation (CMS/HCC) Atrial fibrillation Anemia, unspecified type BMI 28.0-28.9,adult documented in this encounter [facility] Work Phone: Evaluation note* Diagnosis High risk medication use- Primary Single vessel coronary disease Essential hypertension Unspecified essential hypertension Mixed hyperlipidemia Persistent atrial fibrillation (Multi) Atrial fibrillation BMI 28.0-28.9,adult Cerebrovascular accident (CVA), unspecified mechanism (Multi) Anemia, unspecified type Former smoker Personal history of tobacco use, presenting hazards to health documented in this encounter [facility] Work Phone: Evaluation note* Diagnosis Xerosis cutis- Primary Other specified disease of sebaceous glands Onychomycosis Dermatophytosis of nail Pain due to onychomycosis of toenails of both feet Right foot drop Other acquired deformity of ankle and foot documented in this encounter [facility]* Diagnosis Persistent atrial fibrillation (Multi)- Primary Atrial fibrillation Single vessel coronary disease Mixed hyperlipidemia Essential hypertension Unspecified essential hypertension Anemia, unspecified type Cerebrovascular accident (CVA), unspecified mechanism (Multi) High risk medication use Former smoker Personal history of tobacco use, presenting hazards to health BMI 27.0-27.9,adult documented in this encounter 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 (CMS/HCC) Pain due to onychomycosis of toenails of both feet Right foot drop Other acquired deformity of ankle and foot documented in this encounter [facility] Narrative - Reported* Type Description Date Medical History [place] Medical History DM Medical History HTN Surgical History cholecystectomy Surgical History back surgery Surgical History elbow surgery Surgical History cataracts, bilaterally Surgical History T & A Hospitalization History see above Hospitalization History [place] -[place] [employer] Other History of Present illness Narrative* Is [...] advised to repeat lab work as ordered -[facility] DO Work Phone: History of [...] 5. Reviewed his recent lab with him -[facility] DO Work Phone: History of [...] reports he was in the hospital in [place] in [place] after a stroke. Hedoes not know if [...] 4. I to retrieve his record from [place] * 5. I advised the patient TO bring his medication with him and tried to write things down concerninghis memory does not appears to be good and he has no good social support system [facility] DO Work Phone: Summary Purpose [...] 12 Lead Veronica Liz MD [address] [facility] 2, [address] [address] Referral ID Status Reason Start Date Expiration Date V isits Requested Visits Authorized [id number] Pending Review 01/29/2023 01/29/2024 1 1 Specialty Diagnoses / Procedures Referred By Julio C t Referred To Contact Cardiology Diagnoses Single vessel coronary disease Essential hypertension Procedures Follow Up In Cardiology Veronica Liz MD [address] [facility] 2, [address] [address] Veronica Liz MD [address] [facility] 2, [address] [address] Referral ID Status Reason Start Date Expiration Date V isits Requested Visits Authorized [id number] Authorized 01/29/2023 01/29/2024 1 1 Specialty Diagnoses / Procedures Referred By Contac t Referred To Contact Radiology Diagnoses Cerebrovascular accident (CVA), unspecified mechanism (HCC) Procedures CT HEAD WO CONTRAST Alexander Grey, MOVIE EDITOR - AMMONIA WORKER [address] [facility] [address] [place] [address] Referral ID Status Reason Start Date Expiration Date Visits Re quested Visits Authorized [id number] Open 12/19/2021 12/19/2022 1 1 Additional Source Comments (unrecognized sect ion and content) No Status Records FoundNo Status Records FoundNo Status Records FoundNo Status Records FoundNo Status Records FoundNo Status Records FoundNo Status Records FoundNo Status Records Found INFORMATION SOURCE (unrecogn ized section and content) DATE CREATED AUTHOR 06/11/2018 [facility] DATE CREATED AUTHOR AUTHOR'S ORGANIZ ATION 12/17/2021 [facility] DATE CREATED AUTHOR AUTHOR'S ORGANIZ ATION 05/18/2022 [facility] DATE CREATED AUTHOR AUTHOR'S ORGANIZ ATION 06/06/2022 [employer] DATE CREATED AUTHOR AUTHOR'S ORGANIZ ATION 08/07/2022 [facility] DATE CREATED AUTHOR AUTHOR'S ORGANIZ ATION 11/22/2022 [facility] DATE CREATED AUTHOR AUTHOR'S ORGANIZ ATION 01/30/2024 [facility] DATE CREATED AUTHOR AUTHOR'S ORGANIZ ATION 03/18/2024 [facility] EPIC REASON FOR VISIT (unrecogniz ed section and content) Reason Comments Follow-up 6 month Specialty Diagnoses / Procedures Referred By Contac t Referred To Contact Diagnoses Persistent atrial fibrillation (CMS/HCC) Procedures ECG 12 Lead Veronica Liz MD [address] [facility], [address] [place] [address] Referral ID Status Reason Start Date Expiration Date V isits Requested Visits Authorized [id number] Pending Review 01/29/2023 01/29/2024 1 1 Reason Comments Follow-up 6 months Specialty Diagnoses / Procedures Referred By Contac t Referred To Contact Cardiology Diagnoses Single vessel coronary disease Essential hypertension Procedures Follow Up In Cardiology Veronica Liz MD [address] [facility], [address] [address] Veronica Liz MD [address] [place] [phone] Referral ID Status Reason Start Date Expiration Date V isits Requested Visits Authorized [id number] Authorized 01/29/2023 01/29/2024 1 1 Reason Comments Toenail Care Non DM Nails Specialty Diagnoses / Procedures Referred By Contac t Referred To Contact Cardiology Diagnoses Persistent atrial fibrillation (Multi) Procedures Follow Up In Cardiology Veronica Liz MD [address] [place] [address], [address] [address] Phone: tel: fax: Veronica Liz MD [address] [place] [phone] Phone: tel: fax: Referral ID Status Reason Start Date Expiration Date V isits Requested Visits Authorized [id number] Authorized 07/30/2023 07/29/2024 1 1 Reason Comments [...] Reason: Order parameters not met - Comment: [phone] (Not Given - Provider: Huang Gurrola RN [...] JUAN) 0735 (Given - Provider: Yair Schofield, JUNA)1223 (Given - Provider: Yair Schofield, JUAN) dextrose [...] patient NOT ALERT or NPO, Starting on [facility] 11/28/21 at 0752, Repeat blood glucose in [...] Care Teams (unrecognized sec tion and content) Cocoa [employer] Operator Relationship Specialty Start Date End Date Valente Martinez DO [address] [place] [address] PCP - General 03/23/99 [employer]oa Press Operator Relationship Specialty Start Date End Date Unallocated, Godwin Ojeda MD [address] [place] [address] PCP - General Family Medicine 06/04/23 [employer]oa [employer] Operator Relationship Specialty Start Date End Date Unallocated, Godwin Ojeda MD [address] [place] [address] PCP - General Family Medicine 06/04/23 Cocoa Press Operator Relationship Specialty Start Date End Date Veronica Liz MD [address] [facility], [address] [place] [address] PCP - MSSP ACO Attributed Provider 03/23/23 [...] BE BASED ON THE PRIMARY CLINICAL RECORDS. [employer] [facility]. provides no warranty or guarantee of the accuracy or completeness of information in this document.
--- NOTE | 2024-04-05 12:00 | CA_ITS ---
Patient Name: SHAHRZAD EDGAR MR#: [id number] : 1945 Exam Date: 04/05/2024 Ordering Doctor: EULALIO VALENCIA . ECHOCARDIOGRAM REPORT PROCEDURE: CA ECHO DOPPLER COMPLETE INDICATIONS: CVA, HTN, CAD COMPARISON: None. DESCRIPTION: COMPLETE ECHOCARDIOGRAM Real-time transthoracic echocardiography with 2D, M-mode, spectral and color flow Doppler performed. QUALITY: Technical quality was good. LEFT VENTRICLE: Normal chamber size. Thickened septal wall. Global left ventricular systolic function is normal. LV EF: Estimated left ventricular ejection fraction is 55-60%. DIASTOLIC: Diastolic function is indeterminate. ATRIAL SEPTUM: Agitated saline contrast does not reveal an intra-cardiac shunt. LEFT ATRIUM: Normal chamber size. RIGHT ATRIUM: Mild dilatation. RIGHT VENTRICLE: Normal chamber size. Normal right ventricular systolic function. TRICUSPID VALVE: Normal mobility and thickness. No stenosis with trivial regurgitation. Unable to assess right sided pressures due to lack of measurable tricuspid regurgitation. MITRAL VALVE: Normal mobility and thickness. No evidence of mitral valve stenosis. There is no mitral annular calcification. Trivial mitral regurgitation. AORTIC VALVE: Normal trileaflet appearance. Mildly calcified aortic valve. Normal leaflet mobility. No evidence of aortic valve stenosis. No aortic regurgitation. AORTIC ROOT: Normal diameter and appearance. PULMONIC VALVE: Normal thickness and mobility. No stenosis. Trivial regurgitation. PERICARDIUM: No evidence of pericardial effusion. IVC: Collapses with inspirations. Normal size. PLEURA: CONCLUSION: 1. Global left ventricular systolic function is normal. Estimated left ventricular ejection fraction is 55-60%. 2. Normal right ventricular size and systolic function. 3. No valvular dysfunction. 4. Agitated saline contrast does not reveal an intra-cardiac shunt. Adult Echocardiography Procedure Report Left Ventricle LVEDD (3.7 - 5.6 cm): 5.03 cm LVESD (2.2 - 4.0 cm): 3.11 cm LVIVS thickness (0.6 - 1.2 cm): 1.27 cm LVPW thickness (0.5 - 1.0 cm): 0.93 cm e': 0.06 m/s E - e': 16.08 LVOT Max Gradient: 2.73 mm[Hg] LVOT Area (cm2): 0.83 m/s Peak Velocity (LVOT): 0.83 m/s Mean Velocity (LVOT): 0.60 m/s LVOT Diameter 2.06 cm Left Ventricular Ejection Fraction: 55-60 % Left Atrium LA Volume Index (2D A2C): 33.07 ml/m2 Left Atrium Systolic Dimension: 2.84 cm Mitral Valve MV E to A Ratio: 0.85 Mitral Valve A-Wave Peak Velocity: 1.04 m/s Mitral Valve E-Wave Peak Velocity: 0.89 m/s Right Ventricle RV Internal Diastolic Dimension: 2.92 cm Aorta AO Root Diam: 2.61 cm Aortic Valve AoV Area (Peak Maldonado): 2.54 cm2, 2.54 cm2 AoV Area (VTI): 2.44 cm2, 2.44 cm2 Peak Velocity(Antegrade Flow): 1.09 m/s Peak Gradient(Antegrade Flow): 4.73 mm[Hg] Mean Velocity(Antegrade Flow): 0.73 m/s Mean Gradient(Antegrade Flow): 2.52 mm[Hg] Velocity Time Integral: 25.30 cm Tricuspid Valve Peak Velocity (Regurgitant Flow): 1.65 m/s Pulmonic Valve Peak Velocity: 0.93 m/s Peak Gradient: 4.15 mm[Hg], 2.82 mm[Hg] Right Atrium Right Atrium Systolic Pressure: 46.19 ml, 46.19 ml Dictated by: Curt Karimi M.D. on 04/09/2024 at 13:18 Approved by: Curt Karimi M.D. on 04/09/2024 at 13:25
--- NOTE | 2024-04-05 12:06 | CM.NOTE ---
Rounds made with Dr. Jain, discussed reason for admission to hospital and further testing (MRI, echo, PT , OT). Pt will remain OBS status for further testing.
[2024-04-05] MEDS: CLOPIDOGREL BISULFATE 75 MG TABLET PO (12:54)
[2024-04-05] MEDS: ENOXAPARIN SODIUM 40 MG/0.4 ML SYRINGE SUBQ (12:54)
[2024-04-05] MEDS: ASPIRIN 81 MG TABLET.DR PO (12:55)
--- NOTE | 2024-04-05 14:53 | P.HP_ITS ---
HPI H&P: HPI History of Present Illness Chief complaint: WEAKNESS, EXPRESSIVE APHASIA Narrative: Patient is a 78 y.o white male with past medical history of hyperlipidemia, hypertension, and past Right MCA stroke, Afib who presented to the ER today after having some right leg pain, knee pain and hip pain. He then found it difficult to think or words and speak them so his girlfriend called EMS. He reports the right leg pain is not new, he had back surgery in the past and has right foot drop from that. He has not been checking his blood pressure. He is ex smoker, quit 5 years ago. Has a daily smokers cough. Of note when patient arrived on the floor his oxygen dropped to 89% so he was placed in 2L nc. Patient had a CT and CTA of the head, both showed no acute stroke. His speech is not impaired when talking to me on exam. He denies chest pain, shortness of breath, no numbness or tingling, no headache or visual changes. ER findings: WBC's 7.9, Normal INR, Cr 1.55; chest X-ray: 1. No acute cardiopulmonary process., head CT/CTA: 1. Similar approximately 50% stenosis involving the right carotid bulb. 2. Otherwise no significant stenosis, large vessel occlusion or aneurysm involving the remaining visualized neck or intracranial arterial vasculature. Opioid HPI Opioid Management Most Recent Pain and Opioid Data: Last Pain Scale 2 04/05/24 14:00 04/05/24 Last Pain Assessment 04/05/24 14:00 Last ORT Total Score 0 04/05/24 11:18 04/05/24 Last ORT Risk Category Low Risk 04/05/24 11:18 04/05/24 Review of Systems ROS Narrative ROS: a complete review of systems were reviewed with patient and are positive as below or listed in History of Chief Complaint. General: no fever, chills, night sweats Head: no headache, trauma, visual changes, nausea or vomiting Skin: no reported rashes, itching or sores Eyes: no blurriness of vision Ears: no reported hearing loss, vertigo, earache, or tinnitus Throat: no sore throat, hoarseness, swelling of neck, or tongue pain Heart: no chest pain Lungs: no shortness of breath or cough GI: no diarrhea or vomiting/nausea Urinary: no urinary urgency, frequency or pain Neuro: numbness or tingling, pain of right leg HEM: no bleeding issues or bruising ENDO: no thyroid problems Psych: no anxiety or depression PFSH PFS Medical History (Updated 04/05/24 @ 15:08 by Aislinn Jain DO) COPD (chronic obstructive pulmonary disease) ?J44.9 - Chronic obstructive pulmonary disease, unspecified (ICD-10) History of stroke ?Z86.73 - Personal history of transient ischemic attack (TIA), and cerebral infarction without residual deficits (ICD-10) Acute metabolic encephalopathy ?G93.41 - Metabolic encephalopathy (ICD-10) Generalized weakness ?R53.1 - Weakness (ICD-10) Foot drop, bilateral ?M21.371 - Foot drop, right foot (ICD-10) ?M21.372 - Foot drop, left foot (ICD-10) Hyperlipemia ?E78.5 - Hyperlipidemia, unspecified (ICD-10) Past heart attack ?I25.2 - Old myocardial infarction (ICD-10) Hypertension ?I10 - Essential (primary) hypertension (ICD-10) CVA (cerebral vascular accident) ?I63.9 - Cerebral infarction, unspecified (ICD-10) Surgical History Hx of cholecystectomy ?Z90.49 - Acquired absence of other specified parts of digestive tract (ICD- 10) History of back surgery ?Z98.890 - Other specified postprocedural states (ICD-10) Family History Father Family history of COPD (chronic obstructive pulmonary disease) Mother Family history of cancer Alzheimer dementia Social History Within the past year, how often did you have a drink containing alcohol: 2-4 times a month Within the past year, how many standard drinks containing alcohol did you have on a typical day: 1 or 2 Within the past year, how often did you have six or more drinks on one occasion: never Total score: 0 Score interpretation: A score less than 4 is consistent with normal alcohol consumption. Smoking status: Former smoker Second hand tobacco smoke exposure: No Non-prescribed substance use: denies use Previous occupational history: retired Known occupational exposures/hazards: No Highest level of school completed/degree received: GED or equivalent Are you now , , , , never or living with a partner: living with partner In a typical week, how many times do you talk on the telephone with family, friends, or neighbors: 3 or more times per week How often do you get together with friends or relatives: 3 or more times per week How often do you attend rastafarian or yazdanism services: never Do you belong to any clubs or organizations such as rastafarian groups unions, [employer] or athletic groups, or school groups: no Total score: 2 Score interpretation: A score of greater than or equal to 2 indicates the lowest level of social isolation. Little interest or pleasure in doing things: not at all Feeling down, depressed, or hopeless: several days Feel stressed/tense/nervous/anxious/difficulty sleeping: not at all Do you think of yourself as: straight/heterosexual Gender Identity: male Meds Home Medications and Allergies Home Medications ?Medication ?Instructions ?Recorded ?Confirmed ?Type atorvastatin 80 mg tablet 80 mg PO DAILY 03/02/23 04/05/24 History aspirin 81 mg tablet,delayed 81 mg PO QD #30 tabs 10/05/23 04/05/24 Rx release lisinopril 10 mg tablet 5 mg (1/2 x 10 mg) PO DAILY #30 10/05/23 04/05/24 Rx tabs sotalol 80 mg tablet 80 mg PO BID #60 tabs 10/05/23 04/05/24 Rx Allergies Allergy/AdvReac Type Severity Reaction Status Date / Time coconut Allergy Intermediate Verified 03/02/23 01:13 Exam Constitutional Vital Signs, click to edit/add: Last Vital Signs Temp 99.3 F 04/05/24 11:18 Pulse 69 04/05/24 13:55 Resp 16 04/05/24 11:18 BP 152/83 H 04/05/24 11:18 Pulse Ox 93 L 04/05/24 11:18 O2 Del Method Nasal Cannula 04/05/24 11:18 O2 Flow Rate 2 04/05/24 11:18 Results Labs Labs: Short CBC 04/05/24 Range/Units 07:35 WBC 7.9 (4.0-11.0) 10^3/uL Hgb 12.4 L (14.0-18.0) g/dL Hct 35.7 L (42.0-54.0) % Plt Count 170 (150-450) 10^3/uL BMP 04/05/24 07:35 Sodium 137 Potassium 4.2 Chloride 100 Carbon Dioxide 27.6 BUN 14.0 Creatinine 1.55 H Glucose 141 H Calcium 8.2 L Assessment and Plan Assessment and Plan (1) Expressive aphasia: Assessment and Plan: CTA and CT ok. neurochecks q6 hours, TeleStroke consult, continue atorvastatin, aspirin and add plavix. Echo pending, patient refuses MRI even with anxiolytic offered. check TSH, LIPID panel, ha1c in the morning. PT/OT evaluation. (2) Hyperlipemia: Assessment and Plan: continue statin Qualifiers: Hyperlipidemia type: unspecified Qualified Code(s): E78.5 - Hyperlipidemia, unspecified (3) Hypertension: Assessment and Plan: continue blood pressure control with lisinopril and sotalol Qualifiers: Hypertension type: primary hypertension Qualified Code(s): I10 - Essential (primary) hypertension (4) History of stroke: Assessment and Plan: may need plavix daily on top of aspirin. (5) COPD (chronic obstructive pulmonary disease): Assessment and Plan: will place on as needed albuterol with scheduled duonebs, patient most likely has emphysema that he is unaware of. monitor need for oxygen saturations. Chest Xray was clear. Qualifiers: COPD type: unspecified COPD Qualified Code(s): J44.9 - Chronic obstruct eligio pulmonary disease, unspecified (6) KYLE (acute kidney injury): Assessment and Plan: provide fluid bolus Plan Patient is a full code SCD's for prophylaxis Patient is observation status and is not expected to cross 2 midnights.
[2024-04-05] MEDS: IPRATROPIUM/ALBUTEROL SULFATE 3 ML AMPUL.NEB IH ×2 (16:36→22:12)
[2024-04-05] MEDS: SOTALOL HCL 80 MG TABLET PO (21:22)
[2024-04-06] VITALS (10 sets, daily range): BP systolic 106–107; BP diastolic 56–66; PULSE 61–111; TEMP 36.8–37.2; O2SAT 91–96; BMI 26.2
[2024-04-06 00:17] LABS: Bilirubin Urine NEGATIVE (NEGATIVE); Blood Urine NEGATIVE (NEGATIVE); Clarity Urine CLEAR (CLEAR); Color Urine YELLOW (YELLOW); Glucose Urine UA NEGATIVE (NEGATIVE); Ketones Urine TRACE mg/dL (NEGATIVE); Leukocyte Esterase Urine NEGATIVE (NEGATIVE); Nitrite Urine NEGATIVE (NEGATIVE); Protein Urine 30 mg/dL (NEG/TRACE); Specific Gravity Urine 1.025 (1.005-1.025)
[2024-04-06 00:26] LABS: WBC Urine 0-2 #/HPF (NONE SEEN)
[2024-04-06 00:27] LABS: Bacteria Urine NONE SEEN #/HPF (NONE SEEN); Cast Seen? NONE SEEN #/LPF (NONE SEEN); Crystals Seen? None Seen #/HPF (None Seen); Mucus Urine NONE SEEN (NONE SEEN); RBC Urine 0-2 #/HPF (0-2); Squamous Epithelial Cell Urine NONE SEEN #/LPF (NONE/RARE); Urine Culture Indicated NO
[2024-04-06 00:28] LABS: Amphetamine Screen Urine NEGATIVE (NEGATIVE); Barbiturates Screen Urine NEGATIVE (NEGATIVE); Benzodiazepines Screen Urine NEGATIVE (NEGATIVE); Buprenorphine Screen Urine NEGATIVE (NEGATIVE); Cannabinoid Screen Urine NEGATIVE (NEGATIVE); Cocaine Screen Urine NEGATIVE (NEGATIVE); Methadone Screen Urine NEGATIVE (NEGATIVE); Methamphetamines Screen Urine NEGATIVE (NEGATIVE); Opiate Screen Urine NEGATIVE (NEGATIVE); Oxycodone Screen Urine NEGATIVE (NEGATIVE); Phencyclidine Screen Urine NEGATIVE (NEGATIVE); Tricyclic Antidepressant Urine NEGATIVE (NEGATIVE)
[2024-04-06] MEDS: IPRATROPIUM/ALBUTEROL SULFATE 3 ML AMPUL.NEB IH ×2 (05:31→11:24)
[2024-04-06 05:46] LABS: Basophils Percent Auto 0.5 % (0.2-2.0); Eosinophils Percent Auto 0.5 % (0.9-7.0); Hematocrit 34.4 % (42.0-54.0); Immature Granulocytes Abs Auto 0.02 10^3/uL (0.00-0.03); Immature Granulocytes Pct Auto 0.3 % (0.0-0.5); Lymphocytes Absolute Auto 0.7 10^3/uL (1.2-3.8); Lymphocytes Percent Auto 10.8 % (20.5-60.0); Mean Corpuscular HGB Conc 34.9 g/dL (29.9-35.2); Mean Corpuscular Hemoglobin 34.5 pg (25.9-34.0); Mean Corpuscular Volume 98.9 fL (80.0-94.0); Mean Platelet Volume 10.2 fL (9.5-13.5); Monocytes Percent Auto 16.7 % (1.7-12.0); Neutrophils Absolute Auto 4.3 10^3/uL (1.4-6.5); Neutrophils Percent Auto 71.2 % (43.0-75.0); Platelet Count 158 10^3/uL (150-450); Red Blood Count 3.48 10^6/uL (4.70-6.10); Red Cell Distribution Width 13.7 % (11.0-15.0)
[2024-04-06 05:57] LABS: Estimated Average Glucose 140 mg/dL; Glycohemoglobin A1C 6.5 % (4.5-6.2); INR 1.15; Partial Thromboplastin Time 32.7 sec (22.3-36.2)
[2024-04-06 06:12] LABS: Alanine Aminotransferase 21 U/L (16-63); Albumin Globulin Ratio 0.8; Albumin Level 2.9 g/dL (3.4-5.0); Alkaline Phosphatase 85 U/L (46-116); Anion Gap 13.9; Aspartate Amino Transferase 29 U/L (15-37); BUN Creatinine Ratio 12.4; Bilirubin Total 1.3 mg/dL (0.2-1.0); Calcium 7.8 mg/dL (8.5-10.1); Carbon Dioxide 26.1 mmol/L (21.0-32.0); Chloride 99 mmol/L (98-107); Chol HDL Ratio 3.2; Cholesterol 106 mg/dL (<=200); Estimated GFR (African America >60 (>=60 mL/min/1.73m^2); Estimated GFR (Non-African Ame 50 (>=60 mL/min/1.73m^2); Globulin 3.7 g/dL; Glucose 110 mg/dL (74-106); HDL Cholesterol 33 mg/dL (40-60); Sodium 135 mmol/L (136-145); Thyroid Stimulating Hormone 1.105 uIU/mL (0.358-3.740); Total Protein 6.6 g/dL (6.4-8.2); Triglycerides 97 mg/dL (<=150); VLDL CHOLESTEROL 19.4 mg/dL
--- NOTE | 2024-04-06 07:43 | CT_ITS ---
[address] [address] Patient Name: SHAHRZAD EDGAR MRN: [id number] date: 1945 Sex: M Assigned Patient Location: [place] Current Patient Location: [place] Accession/Order Number: [id number] Exam Date: 04/06/2024 07:55 Report Date: 04/06/2024 08:11 At the request of: EULALIO VALENCIA Procedure: CT stroke head/brain wo con NONCONTRAST HEAD CT COMPARISON: Head CT, yesterday at 7:41 AM. CLINICAL HISTORY: None provided. TECHNIQUE: Routine noncontrast images of the brain obtained. CT examination of the head without IV contrast. Dose reduction techniques were achieved by using: automated exposure control and/or adjustment of mA and /or kV according to patient size and/or use of iterative reconstruction technique. FINDINGS: Paranasal sinuses and mastoid air cells are clear. Intraorbital contents are unremarkable. No acute bony abnormality. Intracranially, there is no evidence of hemorrhage, mass effect, or midline shift. Brain is atrophic. Remote bilateral MCA infarcts right larger than left, unchanged. Dense carotid calcifications. . CT/CT stroke head/brain wo con IMPRESSION: No acute intracranial hemorrhage. Chronic findings as documented. No significant interval change. Electronically authenticated by: DENNYS MOMIN Date: 04/06/2024 08:11
--- NOTE | 2024-04-06 08:51 | PM.DS1 ---
DS: Providers Provider Date of admission: 04/05/24 11:09 Primary care physician: Non-Staff PhysicianMD Attending physician on admission: Aislinn Jain Consults: 04/05/24 Consult to Dietitian Routine Reason for consultation: weight loss greater than 10 lbs Has provider been notified: No 04/05/24 11:54 Consult to Telestroke Routine Reason for consultation: CVA symptoms with expressive aphasia, history of MCA stroke Has provider been notified: Yes 04/05/24 12:00 Occupational Therapy Eval and Treat Routine Reason for consultation: CVA Has provider been notified: No Physical Therapy Eval and Treat Routine Reason for consultation: cva Has provider been notified: No Discharging clinician: Aislinn Jain DS: Diagnosis Discharge Diagnosis (1) TIA (transient ischemic attack): (2) Expressive aphasia: (3) Hyperlipemia: Qualifiers: Hyperlipidemia type: unspecified Qualified Code(s): E78.5 - Hyperlipidemia, unspecified (4) Hypertension: Qualifiers: Hypertension type: primary hypertension Qualified Code(s): I10 - Essential (primary) hypertension (5) History of stroke: (6) COPD (chronic obstructive pulmonary disease): Qualifiers: COPD type: unspecified COPD Qualified Code(s): J44.9 - Chronic obstructive pulmonary disease, unspecified (7) KYLE (acute kidney injury): DS: Summary Hospital Course Hospital Course: Patient is a 78 y.o white male with past medical history of hyperlipidemia, hypertension, and past Right MCA stroke, Afib and UGIB who presented to the ER yesterday after having some right leg pain, knee pain and hip pain. He then found it difficult to think of words and speak them so his girlfriend called EMS. He reports the right leg pain is not new, he had back surgery in the past and has right foot drop from that. He has not been checking his blood pressure. He is ex smoker, quit 5 years ago. Has a daily smokers cough. Of note when patient arrived on the floor his oxygen dropped to 89% so he was placed in 2L nc. Patient had a CT and CTA of the head, both showed no acute stroke. ER findings: WBC's 7.9, Normal INR, Cr 1.55; chest X-ray: 1. No acute cardiopulmonary process., head CT/CTA: 1. Similar approximately 50% stenosis involving the right carotid bulb. 2. Otherwise no significant stenosis, large vessel occlusion or aneurysm involving the remaining visualized neck or intracranial arterial vasculature. His speech is not impaired when talking to me on exam. He denies chest pain, shortness of breath, no numbness or tingling, no headache or visual changes. Patient refused follow up MRI. Repeat CT head today showed no acute process. Telestroke consult note in the chart which I have also reviewed, recommended anticoagulation with Eliquis for his Afib but patient refused. Also discussed Watchman device, Patient states he doesn't want. Per patient choice, they recommended daily aspirin, BP control, continuing statin and diet/lifestyle modifications for ha1c 6.5. I have also discussed plan with patient. Was going to make follow up with Neurology but patient refused. He is aware that acute massive stroke would be fatal and debilitating but can only offer life preserving and preventative medication, patient has made his own informed decision. Oxygen was 89% on room air but there was difficulty with finger probe. He was walked without oxygen with ear probe and did not dip below 96%, patient does not require oxygen. He will be discharged home today with close cardiology and PCP follow up. May return to the ER with any worsening signs or symptoms. Status at Discharge Functional status at discharge: uses cane/walker Overall status at discharge: patient is back to baseline Time Spent with Patient Time attestation: Total time spent providing and/or coordinating discharge services: Time spent: greater than 30 minutes Exam Narrative Exam Narrative: General: Patient is alert, and oriented to person, place and time with normal affect, proper hygiene Skin: no visible rashes, or ulcers Head: atraumatic, acephalic Eyes: PERRLA, no nystagmus present, conjunctiva clear, no scleral icterus Ears: normal gross auditory acuity Neck: no masses palpated, normal thyroid, no JVD or audible carotid bruits Heart: Normal rate and rhythm, no murmurs/rubs/gallops Lungs: no audible wheezes, crackles and normal breath sounds all lung blunt Abdomen: Normal audible bowel sounds, no distension, No palpable masses, no organomegaly, no rebound/guarding/ or rigidity Musculoskeletal: no swelling bilateral lower extremities Neuro: CN II-X grossly intact, normal sensation upper and lower extremities Constitutional Vital Signs, click to edit/add: Last Vital Signs Temp 99 F 04/06/24 07:59 Pulse 66 04/06/24 08:00 Resp 20 04/06/24 07:59 BP 106/56 04/06/24 07:59 Pulse Ox 91 L 04/06/24 07:59 O2 Del Method Nasal Cannula 04/06/24 07:59 O2 Flow Rate 2 04/06/24 07:59 DS: Data Data Completed and Pending Labs on day of discharge: Labs from last 24 hours 04/06/24 04/05/24 04:54 23:51 WBC 6.0 RBC 3.48 L Hgb 12.0 L Hct 34.4 L MCV 98.9 H MCH 34.5 H MCHC 34.9 RDW 13.7 Plt Count 158 MPV 10.2 Neut % (Auto) 71.2 Lymph % (Auto) 10.8 L [place] % (Auto) 16.7 H Eos % (Auto) 0.5 L Baso % (Auto) 0.5 Neut # (Auto) 4.3 Lymph # (Auto) 0.7 L [place] # (Auto) 1.0 H Eos # (Auto) 0.0 Baso # (Auto) 0.0 Abs Immat Gran (auto) 0.02 Imm/Tot Granulo (auto) 0.3 PT 12.0 H INR 1.15 APTT 32.7 Sodium 135 L Potassium 4.0 Chloride 99 Carbon Dioxide 26.1 Anion Gap 13.9 BUN 17.0 Creatinine 1.37 H Est GFR ( Amer) >60 Est GFR (Non-Af Amer) 50 L BUN/Creatinine Ratio 12.4 Glucose 110 H Estimat Average Glucose 140 Hemoglobin A1c 6.5 H Calcium 7.8 L Total Bilirubin 1.3 H AST 29 ALT 21 Alkaline Phosphatase 85 Total Protein 6.6 Albumin 2.9 L Globulin 3.7 Albumin/Globulin Ratio 0.8 Triglycerides 97 Cholesterol 106 LDL Cholesterol, Calc 54.0 VLDL Cholesterol 19.4 HDL Cholesterol 33 L Cholesterol/HDL Ratio 3.2 TSH 1.105 Urine Color Yellow Urine Clarity Clear Urine pH 6.0 Ur Specific [place] 1.025 Urine Protein 30 A Urine Glucose (UA) Negative Urine Ketones Trace A Urine Occult Blood Negative Urine Nitrite Negative Urine Bilirubin Negative Urine Urobilinogen 2.0 A Ur Leukocyte Esterase Negative Urine RBC 0-2 Urine WBC 0-2 A Ur Squamous Epith Cells None seen Urine Crystals None seen Urine Bacteria None seen Urine Casts None seen Urine Mucus None seen Ur Culture Indicated? No Urine Opiates Screen Negative Ur Buprenorphine Scrn Negative Ur Oxycodone Screen Negative Urine Methadone Screen Negative Ur Barbiturates Screen Negative U Tricyclic Antidepress Negative Ur Phencyclidine Scrn Negative Ur Amphetamines Screen Negative U Methamphetamines Scrn Negative U Benzodiazepines Scrn Negative Urine Cocaine Screen Negative U Cannabinoids Screen Negative Discharge Plan Discharge Disposition: Home, Self-Care Condition: Fair Discharge Medications: Continued atorvastatin 80 mg tablet 80 mg PO DAILY sotalol 80 mg Tablet 80 mg PO BID Qty: 60 11RF aspirin 81 mg Tablet,Delayed Release (Dr/Ec) 81 mg PO QD Qty: 30 11RF lisinopril 10 mg Tablet 5 mg PO DAILY Qty: 30 11RF Activity: other Activity Detail: Use your cane for ambulation Diet: advance to your usual diet Print Language: Upper Sorbian Patient Instructions: Aphasia (DC) Forms: Portal Instructions Follow Up Appointments: @ 10am with Dr. Avila [phone] Larson first available
[2024-04-06] MEDS: LISINOPRIL 10 MG TABLET 5 MG PO (09:14)
[2024-04-06] MEDS: ASPIRIN 81 MG TABLET.DR PO (09:14)
[2024-04-06] MEDS: ATORVASTATIN CALCIUM 40 MG TABLET 80 MG PO (09:14)
[2024-04-06] MEDS: SOTALOL HCL 80 MG TABLET PO (09:14)
[2024-04-06] MEDS: CLOPIDOGREL BISULFATE 75 MG TABLET PO (09:14)
--- NOTE | 2024-04-06 12:01 | CM.NOTE ---
Rounds made with Dr. Jain, pt will discharge to home today if able to wean oxygen off. Pt does not wear home oxygen. Discussed with pt about need to f/u with neurologist, stitchdowns toe former, and PCP. Pt refusing to f/u with neurologist. PCP found to be Dr. Avila, called registration to correct and tiger txt Dr. Avila that pt would discharge today. No discharge needs identified. PT note states pt could benefit from KELLY Sanchez updated and will call DME.
--- NOTE | 2024-04-06 12:57 | SWNOTE1 ---
Therapy recommended AFO brace. KELLY called [facility] [place] [facility] and they do not have them there. She stated the patient will have to go to [facility] in [place]. KELLY spoke with pt and provided him with name, address, and phone number for [facility].
--- NOTE | 2024-04-06 12:59 | SWNOTE1 ---
SW advised to pt that he will have to go to that place and get fitted for the brace. He voiced understanding.
--- NOTE | 2024-04-06 13:06 | NUTR.NU ---
Diet consult completed; nutrition assessment to follow.
--- NOTE | 2024-04-06 14:29 | CM.NOTE ---
Medicare Outpatient Observation Notice discussed with pt, pt verbalizes understanding and signs paper. Original given to pt and copy placed on pt's chart.
--- NOTE | 2024-04-07 15:43 | CM.DCFOLLOWU ---
1st attempt 04/07/24, no answer
--- NOTE | 2024-04-13 15:04 | CM.DCFOLLOWU ---
04/13- 2nd attempt. No answer
--- NOTE | 2024-04-15 15:53 | CM.DCFOLLOWU ---
3rd attempt 04/15/24, no answer
== END 2024-04-06 13:42 | disposition home or self-care (01) ==
LOC: ER 10:30 → MS 11:16
PROVIDERS: Admitting Provider Family Medicine; Emergency Provider Emergency Medicine; PCP Family Medicine; Visit Provider Family Medicine
DX: G45.9 Transient cerebral ischemic attack, unspecified (principal); R47.01 Aphasia; E78.5 Hyperlipidemia, unspecified; I10 Essential (primary) hypertension; Z86.73 Personal history of transient ischemic attack (TIA), and cerebral infarction without residual deficits; I48.91 Unspecified atrial fibrillation; M21.371 Foot drop, right foot; Z87.891 Personal history of nicotine dependence; Z90.49 Acquired absence of other specified parts of digestive tract; Z79.82 Long term (current) use of aspirin; J44.9 Chronic obstructive pulmonary disease, unspecified; N17.9 Acute kidney failure, unspecified; I48.19 Other persistent atrial fibrillation; R09.02 Hypoxemia; I25.2 Old myocardial infarction; E11.9 Type 2 diabetes mellitus without complications; I65.21 Occlusion and stenosis of right carotid artery; R51.9 Headache, unspecified; Z79.899 Other long term (current) drug therapy
CPT/HCPCS: 36415; 70450; 70496; 70498; 71045; 80048; 80053; 80061; 80307; 81001; 83036; 84443; 85007; 85025; 85027; 85610; 85730; 93005; 93306; 94640; 94761; 96372; 96374; 97162; 97165; 99285; G0378; J1650; J2405; Q9966

== ENCOUNTER 2024-08-22 02:21 | Emergency (ER) | payer MEDICARE, SELFPAY ==
[2024-08-22] VITALS (20 sets, daily range): BP systolic 175; BP diastolic 81; PULSE 55–102; TEMP 36.7; O2SAT 90–99; BMI 25.7
--- NOTE | 2024-08-22 02:30 | ECG_ITS ---
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 Measurements Intervals [place] Rate: 57 P: 50 WA: 192 QRS: 47 QRSD: 84 T: 51 QT: 526 QTc: 520 Interpretive Statements 1100 Sinus rhythm 8304 Long QTc interval 9150 abnormal ECG Compared to ECG 04/05/2024 07:36:09 No significant changes Electronically Signed On 08-22-2024 7:09:37 EDT by ANCA BUTLER M.D.
--- OUTSIDE RECORDS SUMMARY | 2024-08-22 02:31 | XMS_ITS | CCD ---
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 [employer] Carrier Name Role Phone VERONICA LIZ Attending Unavailable HOUSE, VALENTE Primary Care Unavailable Michelle, Valente P Unavailable Unavailable Unavailable Saurabh Goyal Unavailable Unavailable Primary Care Provider Unavailkate saul MARKER, BENITA Referring Unavailable CHIRRI, ALLAN Admitting Unavailable CHIRRIANILL Attending Unavailable SONIA MCKINNEY Consulting Unavailable CRISTIN ORTEGA Consulting Unavailable KENIA KANG Consulting Unavailab le ZOGRAFFARIBA MCGUIRE Consulting Unavailable HUAN MAYO Consulting Unavailable BLOOD, GILLES Ortega Consulting Unavailable DANY ARROYO I Consulting Unavailable MARKER ., DR POOL [...] RILEY Consulting Unavailable OBI MIDDLETON Consulting Unavailable NEFCYFARIBA Consulting Unavailable MICHELLE, DR WANG Primary Care [...] Unavailable OBI MIDDLETON Consulting Unavailable REINA GOMEZ Unavailable HOUSE, DR WANG Primary Care Unavailable [...] Unavailable PAY ., DR ORLANDO Attending Unavailable HAMLIN, DR REINA Palacios Consulting Unavailable PAY ., DR ORLANDO Consulting Unavailable KENY GREENE Consulting Unavailable Traboulssi, Mourhaf Referring Unavailable Traboulssi, Mourhaf Attending Unavailable [place], Dr. Valente Santacruz Primary Care Unava ilable Traboulssi, Mourhaf Referring Unavailable Traboulssi, Mourhaf Attending Unavailable House, Dr. Valente Santacruz Primary Care Unava ilable Jeevan Espinoza Attending Unavailable [place], Dr. Valente Santacruz Primary Care Unava ilable Traboulssi, Mourhaf Referring Unavailable Traboulssi, Mourhaf Attending Unavailable House, Dr. Valente Santacruz Primary Care Unava ilable Traboulssi, Mourhaf Attending Unavailable Traboulssi, Mourhaf Referring Unavailable [place], Dr. Valente Santacruz Primary Care Unava ilable Valente Martinez DO Primary Care Provider Unavailable Primary Care Provider Unavailabl e Unallocated , Noms Provider Primary Care Provi miya Veronica Liz MD Unavailable [phone] Jeevan Espinoza Consulting Unavailable Candis Pearson Admitting Unavailable Candis Pearson Attending Unavailable Valente Martinez Primary Care Unavailable Zachariah Ochoa MD Primary Care Provider TRABOULSSI, MOURHAF Attending Unavailable TRABOULSSI, MOURHAF Referring Unavailable TRABOULSSI, MOURHAF Attending Unavailable TRABOULSSI, MOURHAF Referring Unavailable TRABOULSSI, MOURHAF Attending Unavailable ZACHARIAH OCHOA Primary Care Unavailable MARCIANO HI Attending Unavailable MARCIANO HI Attending Unavailable MARCIANO HI Attending Unavailable MARCIANO HI Attending Unavailable MARCIANO HI Attending Unavailable Allergies Allergy Classification Reported Allergen(s) Allergy Type Date of Onset Reaction(s) Facility (2 sources) Coconut extract Drug Allergy Unknown [facility] Other (1 source) coconut allergenic extract Drug Allergy 11-28-2021 Anaphylaxis [facility] (1 source) Coconut extract Drug Allergy 01-31-2016 [facility] Repository (4 sources) Coconut Oil OIL; Translations: [Coconut Oil OIL] Allergy to drug (finding) [facility] 250 DO Work Phone: (5 sources) Coconut Oil; Translations: [COCONUT OIL] Drug Allergy 01-29-2023 Other [facility] (1 source) Coconut extract Drug Allergy 09-17-2021 [facility] Repository Medications Current Medications Medication Drug Class(es) Dates [...] aspirin 81 mg delayed release oral tablet (20 sources) Platelet Aggregation Inhibitor, Nonsteroidal Anti-inflammatory Drug [...] 125 mcg ibuprofen 400 mg oral tablet (6 sources) Nonsteroidal Anti-inflammatory Drug take 1 tablet [...] Start: 12-03-2021 take 1 tablet by lavern once daily lisinopril (PRINIVIL;ZESTRIL) 10 MG tablet [...] 20, 2019 1:00am take 0.5 tablet by m outh twice daily sotalol AF 120 mg tablet [...] mL solution nitroglycerin 0.4 mg sublingual tablet (6 sources) Nitrate Vasodilator Start: 12-26-2021 Nitroglycerin 0.4 [...] Date Documented Date Episodic/Chronic Acquired foot deformities (3 sources) Right foot drop; Translations: [Foot drop, right foot] 01-07-2024 Episodic Acute cerebrovascular disease (17 sources) Cerebrovascular accident; Translations: [Cerebral infarction, unspecified] [...] [Coronary atherosclerosis of unspecified type of vessel, [place] or graft] Onset: 09-22-2021 06-12-2020 Chronic Coronary atherosclerosis and other heart disease (1 source) Past history of procedure; Translations: [Coronary angioplasty status] 06-12-2020 Episodic Deficiency and other anemia (1 source) Anemia due to blood loss; Translations: [Iron deficiency anemia secondary to blood loss (chronic)] 06-12-2020 Chronic Deficiency and other anemia (2 sources) Microcytic anemia; Translations: [Iron deficiency anemia, unspecified] Episodic Diabetes mellitus with complications (2 sources) Polyneuropathy due to diabetes mellitus; Translations: [Diabetes 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] 03-17-2024 Chronic Diabetes mellitus without complication (5 sources) Type 2 diabetes mellitus without complication; Translations: [Type 2 diabetes mellitus without complications] Onset: 09-22-2021 Chronic Disorders of lipid metabolism (20 sources) Hyperlipidemia; Translations: [Other and unspecified hyperlipidemia] Onset: 09-22-2021 06-12-2020 Chronic E Codes: Fall (2 sources) Fall on same level, unspecified, initial encounter; Translations: [Fall on same level from slipping, tripping and stumbling with subsequent striking against other object, initial encounter] Onset: 08-27-2021 Episodic Esophageal disorders (1 source) Gastro-esophageal reflux disease without esophagitis; Translations: [GERD WITHOUT ESOPHAGITIS] Onset: 04-23-2022 Chronic Essential hypertension (20 sources) Essential hypertension; Translations: [Unspecified essential hypertension] Onset: 09-22-2021 Chronic Fluid and electrolyte disorders (2 sources) [...] left non-dominant side] Onset: 12-09-2021 Chronic Mycoses (4 sources) Onychomycosis; Translations: [Tinea unguium] 01-07-2024 Episodic Occlusion or stenosis of precerebral arteries (4 sources) Right carotid artery stenosis; Translations: [Occlusion and stenosis of right carotid artery] Onset: 01-28-2024 04-20-2024 Chronic Osteoarthritis (1 source) Unspecified osteoarthritis, unspecified site; Translations: [UNSPECIFIED OSTEOARTHRITIS UNS SITE] Onset: 04-23-2022 Chronic Other aftercare (8 sources) Drug therapy finding; Translations: [Long-term (current) use of other medications] Episodic Other aftercare (1 source) [facility] (current) use of aspirin; Translations: [JAIL CURRENT USE OF ASPIRIN] Onset: 04-23-2022 Episodic Other aftercare (7 sources) Taking high risk medication; Translations: [Other fci (current) drug therapy] Onset: 01-29-2023 01-29-2023 Episodic [...] Chronic Other nutritional; endocrine; and metabolic disorders (16 sources) Overweight in adulthood with body mass index of 25 or more but less than 30; Translations: [Overweight] Onset: 01-29-2023 01-29-2023 Episodic Other nutritional; endocrine; and metabolic disorders (2 sources) Body mass index (BMI) 26.0-26.9, adult; Translations: [Body mass index (BMI) 26.0-26.9, adult] Onset: 04-20-2024 Episodic Other nutritional; endocrine; and metabolic disorders (2 sources) Body mass index (BMI) 27.0-27.9, adult; Translations: [Body mass index (BMI) 27.0-27.9, adult] Onset: 01-28-2024 Episodic Other screening for suspected conditions (not mental disorders or infectious disease) (2 sources) Hormone level - finding; Translations: [Other specified abnormal findings of blood chemistry] 05-29-2020 Episodic Other skin disorders (3 sources) Asteatosis cutis; Translations: [Xerosis cutis] 01-07-2024 [...] Onset: 04-23-2022 06-12-2020 Episodic Transient cerebral ischemia (7 sources) Transient cerebral ischemic attack, unspecified; Translations: [Transient cerebral ischemia] Onset: 04-20-2022 Chronic Unclassified (1 source) [facility] (current) use of oral hypoglycemic drugs Onset: 06-10-2018 Unclassified (1 source) CONTACT W/AND (SUSP) EXPOS COVID-19; Translations: [CONTACT W/AND (SUSP) EXPOS COVID-19] Onset: 04-23-2022 Unclassified (4 sources) Other persistent atrial fibrillation; Translations: [Other persistent atrial fibrillation] Onset: 01-29-2023 Past or Other Problems Problem Classification Problem Date Documented Date Episodic/Chronic Acute bronchitis (1 source) Acute bronchiolitis, unspecified; Translations: [ACUTE BRONCHIOLITIS UNSPECIFIED] Onset: 08-23-2021 Episodic Deficiency and other anemia (18 sources) Anemia; Translations: [Anemia, unspecified] Onset: 11-29-2021 Episodic Deficiency and other anemia (6 sources) [...] conjunctivitis; Translations: [UNSPECIFIED CONJUNCTIVITIS] Onset: 08-23-2021 Episodic Nonspecific chest pain (8 sources) Chest pain, unspecified; Translations: [Chest pain] Onset: 09-22-2021 Episodic Open wounds of head; neck; and trunk (4 sources) Laceration without foreign body of left eyelid and periocular area, initial encounter; Translations: [LAC NO FB LT EYELID PERIOCULAR INIT] Onset: 08-26-2021 Episodic Other aftercare (3 sources) 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; Translations: [OTH INTERIOR DESIGN INSTRUCTOR CURRENT DRUG THERAPY] Onset: 04-23-2022 Episodic Other aftercare (1 source) [facility] (current) use of oral hypoglycemic drugs; Translations: [INTERIOR DESIGN INSTRUCTOR USE ORAL HYPOGLYCEMIC DX] Onset: 12-09-2021 Episodic [...] of mental health and substance abuse codes (17 sources) Ex-smoker; Translations: [Personal history of tobacco use] Onset: 04-23-2022 07-30-2023 Episodic Comment on above: QUIT MAR 2019; Unclassified (4 sources) Onset: 01-29-2023 Resolved: 04-20-2024 01-29-2023 Results Test Name Value Interpretation Reference Range Facility ECG 12 [place] 04-20-2024 Normal sinus rhythm with 1 PVC and QTc interval is borderline prolonged at 500 malacic [facility] Work Phone: ECG 12 [place] 01-28-2024 Normal sinus rhythm with a QTc interval of 495 ms [facility] Work Phone: ECG 12 [place] 07-30-2023 Atrial fibrillation with nonspecific ST-T changes [facility] Work Phone: ECG 12 [place] 01-29-2023 Normal sinus rhythm with a QTc interval of 481 ms [facility] Work Phone: Tobacco Screening.on 023 Adult depression screening assessment No [facility] Work Phone: Fall risk assessment b) One or more fall s in the last year [employer] Work Phone: Tobacco use status [facility] b) No [employer] Work Phone: Office Visit (Cardiology)on 06-06-2022 Follow-up [...] Former smoker Tobacco Use Screening; Status:Complete; Done: [id number] Patient Instructions Please bring all medicines, vitamins, [...] try to retrieve retrieve his record from [place] Surgical History Problems History of Back surgery [...] Recorded: 06Jun2022 09:22AM Heart Rate80, L Radial Wbgtejcb615, LUE, Sitting Wblxlfedq35, LUE, Sitting Height6 ft 1 in Zqrmkz935 lb BMI Xioqfoymje96.84 kg/m2 BSA Calculated2.2 Tobacco Useb) No Falls [...] irregular, p (more content not included)... Normal [employer] Tobacco Screening.on 023 Fall risk assessment a) No falls within the last year -[facility] [employer] 250 DO Work Phone: Tobacco use status [facility] b) No -[facility] [employer] 250 DO Work Phone: Office Visit (Cardiology)on [...] Former smoker Tobacco Use Screening; Status:Complete; Done: [id number] Patient Instructions Please bring all medicines, vitamins, and herbal supplements with you when you come to the office. Prescriptions will not be filled unless you are compliant with your follow up appointments or have a follow up appointment scheduled as per instruction of your physician. Refills should be requested at the time of your visit. Fall prevention education given Watchman Device discuss with patient Patient to call with correct medication list Retrieve records from [place] Will come back tomorrow with medication bottles [...] reports he was in the hospital in [place] in [place] after a stroke. He does not know [...] 4. I to retrieve his record from [place] 5. I advised the patient TO bring [...] smoker (V15.82 (more content not included)... Normal [facility] Tobacco Screening.on 023 Adult depression screening assessment No [facility] [employer] [facility] 250 DO Work Phone: Fall risk assessment b) One or more fall s in the last year [facility] 250 DO Work Phone: Tobacco use status [facility] b) No [facility] 250 DO Work Phone: CBC AUTO DIFFon 05-14-2022 BASO # 0.0 103/ul Normal 0.0-0.1 [facility] Comment on above: Performed By: #### C BC ####[facility] [address] [place], [place] [address]Dr. Sea Pugh Basophils/100 WBC (Bld) 0.5 % Normal 0.2-2.0 [facility] Comment on above: Performed By: #### C BC ####[facility] [address] [place], [place] [address]Dr. Sea Pugh EO # 0.4 103/ul Normal 0.0-0.7 [facility] Comment on above: Performed By: #### C BC ####[facility] [address] [place], [place] [address]Dr. Sea Pugh Eosinophils/100 WBC (Bld) 4.7 % Normal 0.9-7.0 [facility] Comment on above: Performed By: #### C BC ####[facility] [address] [place], [place] [address]Dr. Sea Pugh Erythrocyte distribution width (RBC) [Ratio] 13.7 % Normal 11.0-15.0 [facility] Comment on above: Performed By: #### C BC ####[facility] [address] [place], [place] [address]Dr. Sea Pugh Hematocrit (Bld) [Volume fraction] 40.5 % Critically low 42.0-54.0 [facility] Comment on above: Performed By: #### C BC ####[facility] [address] [place] [id number]. Sea Pugh Hemoglobin (Bld) [Mass/Vol] 13.5 g/dL Critically low 14.0-18.0 [facility] Comment on above: Performed By: #### C BC ####[facility] [address] [place] [id number]. Sea Pugh IG # 0.03 10e3/ul Normal 0.00-0.03 [facility] Comment on above: Performed By: #### C BC ####[facility] [address] [place], [place] [address]Dr. Sea Pugh IG % 0.4 % Normal 0.0-0.5 [facility] Comment on above: Performed By: #### C BC ####[facility] [address] [place], [place] [address]Dr. Shondapreston Keaton LYMPH # 2.0 103/ul Normal 1.2-3.8 [facility] Comment on above: Performed By: #### C BC ####[facility] [address] [place], [place] [address]Dr. Sea Pugh Lymphocytes/100 WBC (Bld) 25.4 % Normal 20.5-60.0 [facility] Comment on above: Performed By: #### C BC ####[facility] [address] [place], [place] [address]Dr. Sea Pugh MANUAL DIFF REQ NO Normal [facility] Comment on above: Performed By: #### C BC ####[facility] [address] [place], [place] [address]Dr. Sea Pugh MCH (RBC) [Entitic mass] 29.6 pg Normal 25.9-34.0 [facility] Comment on above: Performed By: #### C BC ####[facility] [address] [place], [place] [address]Dr. Sea Pugh MCHC (RBC) [Mass/Vol] 33.3 g/dL Normal 29.9-35.2 [facility] Comment on above: Performed By: #### C BC ####[facility] [address] [place] [id number]. Sea Pugh MCV (RBC) [Entitic vol] 88.8 fL Normal 80.0-94.0 [facility] Comment on above: Performed By: #### C BC ####[facility] [address] [place] [id number]. Sea Pugh MONO # 0.8 103/ul Normal 0.3-0.8 [facility] Comment on above: Performed By: #### C BC ####[facility] [address] [place] [id number]. Sea Pugh Monocytes/100 WBC (Bld) 10.4 % Normal 1.7-12.0 [facility] Comment on above: Performed By: #### C BC ####[facility] [address] [place] [id number]. Sea Pugh NEUT # 4.6 103/ul Normal 1.4-6.5 [facility] Comment on above: Performed By: #### C BC ####[facility] [address] [place] [id number]. Sea Pugh Neutrophils/100 WBC (Bld) 58.6 % Normal 43.0-75.0 [facility] Comment on above: Performed By: #### C BC ####[facility] [address] [place] [id number]. Sea Pugh Platelet mean volume (Bld) [Entitic vol] 9.8 fL Normal 9.5-13.5 [facility] Comment on above: Performed By: #### C BC ####[facility] [address] [place] [id number]. Sea Pugh PLT 243 103/ul Normal 150-450 [facility] Comment on above: Performed By: #### C BC ####[facility] [address] [place] [id number]. Sea Pugh RBC 4.56 106/ul Critically low 4.70-6.10 [facility] Comment on above: Performed By: #### C BC ####[facility] [address] [place] [id number]. Sea Pugh WBC 7.8 103/ul Normal 4.0-11.0 [facility] Comment on above: Performed By: #### C BC ####[facility] [address] [place] [address]Dr. Sea Pugh CBC AUTO DIFFon 04-21-2022 BASO # 0.1 103/ul Normal 0.0-0.1 [facility] Comment on above: Performed By: #### H STROPN, CMP, CRP #### [facility] [address] [place] [address] [address] Sea Pugh Basophils/100 WBC (Bld) 0.7 % Normal 0.2-2.0 [facility] Comment on above: Performed By: #### H STROPN, CMP, CRP #### [facility] [address] [address] [address] Sea Pugh EO # 0.3 103/ul Normal 0.0-0.7 [facility] Comment on above: Performed By: #### H STROPN, CMP, CRP #### [facility] [address] [address] [address] Sea Pugh Eosinophils/100 WBC (Bld) 4.9 % Normal 0.9-7.0 [facility] Comment on above: Performed By: #### H STROPN, CMP, CRP #### [facility] [address] [place] [address] [address] Sea Pugh Erythrocyte distribution width (RBC) [Ratio] 14.0 % Normal 11.0-15.0 [facility] Comment on above: Performed By: #### H STROPN, CMP, CRP #### [facility] [address] [place] [address] [address] Sea Pugh Hematocrit (Bld) [Volume fraction] 38.5 % Critically low 42.0-54.0 [facility] Comment on above: Performed By: #### H STROPN, CMP, CRP #### [facility] [address] [address] [address] Sea Pugh Hemoglobin (Bld) [Mass/Vol] 13.3 g/dL Critically low 14.0-18.0 [facility] Comment on above: Performed By: #### H STROPN, CMP, CRP #### [facility] [address] [place] [address] [address] Sea Pugh IG # 0.02 10e3/ul Normal 0.00-0.03 [facility] Comment on above: Performed By: #### H STROPN, CMP, CRP #### [facility] [address] [place] [address] [address] Sea Pugh IG % 0.3 % Normal 0.0-0.5 [facility] Comment on above: Performed By: #### H STROPN, CMP, CRP #### [facility] [address] [place] [address] Dr. Sea Pugh LYMPH # 1.5 103/ul Normal 1.2-3.8 [facility] Comment on above: Performed By: #### H STROPN, CMP, CRP #### [facility] [address] [place] [address] Dr. Sea Pugh Lymphocytes/100 WBC (Bld) 22.7 % Normal 20.5-60.0 [facility] Comment on above: Performed By: #### H STROPN, CMP, CRP #### [facility] [address] [place] [address] Dr. Sea Pugh MANUAL DIFF REQ NO Normal [facility] Comment on above: Performed By: #### H STROPN, CMP, CRP #### [facility] [address] [place] [address] Dr. Sea Pugh MCH (RBC) [Entitic mass] 29.4 pg Normal 25.9-34.0 [facility] Comment on above: Performed By: #### H STROPN, CMP, CRP #### [facility] [address] [place] [address] Dr. Sea Pugh MCHC (RBC) [Mass/Vol] 34.5 g/dL Normal 29.9-35.2 [facility] Comment on above: Performed By: #### H STROPN, CMP, CRP #### [facility] [address] [place] [address] [address] Sea Pugh MCV (RBC) [Entitic vol] 85.0 fL Normal 80.0-94.0 [facility] Comment on above: Performed By: #### H STROPN, CMP, CRP #### [facility] [address] [place] [address] Dr. Sea Pugh MONO # 0.7 103/ul Normal 0.3-0.8 [facility] Comment on above: Performed By: #### H STROPN, CMP, CRP #### [facility] [address] [place] [address] Dr. Sea Pugh Monocytes/100 WBC (Bld) 10.2 % Normal 1.7-12.0 [facility] Comment on above: Performed By: #### H STROPN, CMP, CRP #### [facility] [address] [place] [address] Dr. Sea Pugh NEUT # 4.1 103/ul Normal 1.4-6.5 [facility] Comment on above: Performed By: #### H STROPN, CMP, CRP #### [facility] [address] [place] [address] Dr. Sea Pugh Neutrophils/100 WBC (Bld) 61.2 % Normal 43.0-75.0 [facility] Comment on above: Performed By: #### H STROPN, CMP, CRP #### [facility] [address] [place] [address] Dr. Sea Pugh Platelet mean volume (Bld) [Entitic vol] 9.1 fL Critically low 9.5-13.5 [facility] Comment on above: Performed By: #### H STROPN, CMP, CRP #### [facility] [address] [place] [address] Dr. Sea Pugh PLT 216 103/ul Normal 150-450 [facility] Comment on above: Performed By: #### H STROPN, CMP, CRP #### [facility] [address] [place] [address] Dr. Sea Pugh RBC 4.53 106/ul Critically low 4.70-6.10 [facility] Comment on above: Performed By: #### H STROPN, CMP, CRP #### [facility] [address] [place], [place] [address] Dr. Sea Pugh WBC 6.8 103/ul Normal 4.0-11.0 [facility] Comment on above: Performed By: #### H STROPN, CMP, CRP #### [facility] [address] [place], [place] [address] Dr. Sea Pugh ECHOCARDIO M/2D COMPLETEon 0 04-21-2022 ECHOCARDIO M/2D COMPLETE Patient: SHAHRZAD EDGAR Exam Date: 04/21/2022 : 1945 Gender:M Ordering : SHAIKH Marya CAMPOS . Admission #: [id number] Family : Order #: [id number] CLICK HERE TO VIEW EXAM ECHOCARDIOGRAM REPORT PROCEDURE: CARDIO PULMONARY ECHOCARDIO M/2D COMP INDICATIONS: Elevated troponin, TIA, HX:MS COMPARISON: None. DESCRIPTION: COMPLETE ECHOCARDIOGRAM Real-time transthoracic [...] Chan M.D. on 04/21/2022 at 14:57 Normal [facility] MRI BRAIN WO CONon 01-30-202 3 MRI BRAIN WO CON EXAMINATION: MRI [...] RAMESH DE SANTIAGO Date: 2022-04-21 14:41 Normal [facility] POINT OF CARE GLUCOSEon 03-25 Glucose [Mass/Vol] 180 mg/dL Critically high 74-106 [facility] Comment on above: Performed By: #### P OCGLUC ####[facility] [address] [place] [address]Dr. Sea Pugh PROF CHEM 8 (BAS METB)on Anion gap [Moles/Vol] 13.5 mmol/L Normal [facility] Comment on above: Performed By: #### D DIM #### [facility] [address] [address] [address] Sea Pugh Calcium [Mass/Vol] 8.7 mg/dL Normal 8.5-10.1 [facility] Comment on above: Performed By: #### D DIM #### [facility] [address] [place] [address] [address] Sea Pugh Chloride [Moles/Vol] 100 mmol/L Normal 98-107 [facility] Comment on above: Performed By: #### D DIM #### [facility] [address] [place] [address] [address] Sea Pugh CO2 [Moles/Vol] 27.2 mmol/L Normal 21.0-32.0 [facility] Comment on above: Performed By: #### D DIM #### [facility] [address] [place] [address] [address] Sea Pugh Creatinine [Mass/Vol] 1.27 mg/dL Normal 0.70-1.30 [facility] Comment on above: Performed By: #### D DIM #### [facility] [address] [place] [address] [address] Sea Pugh EGFR-AF ROMANIAN >60 Normal >=60 [facility] Comment on above: Performed By: #### D DIM #### [facility] [address] [place] [address] [address] Sea Pugh EGFR-NON AF ROMANIAN 55 mL/min/1.73m2 Critically low >=60 [facility] Comment on above: Performed By: #### D DIM #### [facility] [address] [place] [address] [address] Sea Pugh Glucose [Mass/Vol] 134 mg/dL Critically high 74-106 [facility] Comment on above: Performed By: #### D DIM #### [facility] [facility] [address] [address] [address] Sea Pugh Potassium [Moles/Vol] 3.7 mmol/L Normal 3.5-5.1 [facility] Comment on above: Performed By: #### D DIM #### [facility] [address] [address] [address] Sea Pugh Sodium [Moles/Vol] 137 mmol/L Normal 136-145 [facility] Comment on above: Performed By: #### D DIM #### [facility] [address] [address] [address] Sea Pugh Urea nitrogen [Mass/Vol] 14.0 mg/dL Normal 7.0-18.0 [facility] Comment on above: Performed By: #### D DIM #### [facility] [address] [address] [address] Sea Pugh Urea nitrogen/Creatinine [Mass ratio] 11.0 mg/mg Normal [facility] Comment on above: Performed By: #### D DIM #### [facility] [address] [place] [address] Dr. Sea Pugh CARDIAC SRINIVASAN 3-6on 3 CK [Catalytic activity/Vol] 282 U/L Normal 39-308 [facility] Comment on above: Performed By: #### H STROPN, CMP, CRP #### [facility] [address] [place] [address] Dr. Sea Pugh CK.MB [Mass/Vol] 4.34 ng/mL Critically high <=3.60 [facility] Comment on above: Performed By: #### H STROPN, CMP, CRP #### [facility] [address] [place] [address] Dr. Sea Pugh HSTROP 113.2 pg/mL Critically high 4.0-76.1 [facility] Comment on above: Result Comment: CUT- OFF POINTS HAVE BEEN ESTABLISHED BASED ON THE FOURTH UNIVERSAL DEFINITIONS OF MYOCARDIAL INFARCTION. THE UPPER REFERENCE LIMIT (URL) OF TROPONIN, DEFINED THE 99TH PERCENTILE OF cTnI DISTRIBUTION IN A REFERENCE POPULATION, HAS BEEN CONFIRMED THE DECISION THRESHOLD FOR MS DIAGNOSIS. Performed By: #### H STROPN, CMP, CRP #### [facility] [address] [place] [address] Dr. Sea Pugh CBC AUTO DIFFon 04-20-2022 BASO # 0.0 103/ul Normal 0.0-0.1 [facility] Comment on above: Performed By: #### H STROPN, CMP, CRP #### [facility] [address] [place] [address] Dr. Sea Pugh Basophils/100 WBC (Bld) 0.5 % Normal 0.2-2.0 [facility] Comment on above: Performed By: #### H STROPN, CMP, CRP #### [facility] [address] [place] [address] Dr. Sea Pugh EO # 0.1 103/ul Normal 0.0-0.7 [facility] Comment on above: Performed By: #### H STROPN, CMP, CRP #### [facility] [address] [place] [address] Dr. Sea Pugh Eosinophils/100 WBC (Bld) 0.6 % Critically low 0.9-7.0 [facility] Comment on above: Performed By: #### H STROPN, CMP, CRP #### [facility] [address] [address] [address] Sea Pugh Erythrocyte distribution width (RBC) [Ratio] 13.6 % Normal 11.0-15.0 [facility] Comment on above: Performed By: #### H STROPN, CMP, CRP #### [facility] [address] [place] [address] Dr. Sea Pugh Hematocrit (Bld) [Volume fraction] 37.2 % Critically low 42.0-54.0 [facility] Comment on above: Performed By: #### H STROPN, CMP, CRP #### [facility] [address] [place] [address] Dr. Sea Pugh Hemoglobin (Bld) [Mass/Vol] 13.3 g/dL Critically low 14.0-18.0 [facility] Comment on above: Performed By: #### H STROPN, CMP, CRP #### [facility] [address] [place] [address] Dr. Sea Pugh IG # 0.04 10e3/ul Critically high 0.00-0.03 [facility] Comment on above: Performed By: #### H STROPN, CMP, CRP #### [facility] [address] [place] [address] Dr. Sea Pugh IG % 0.5 % Normal 0.0-0.5 [facility] Comment on above: Performed By: #### H STROPN, CMP, CRP #### [facility] [address] [place] [address] Dr. Sea Pugh LYMPH # 1.2 103/ul Normal 1.2-3.8 [facility] Comment on above: Performed By: #### H STROPN, CMP, CRP #### [facility] [address] [place] [address] Dr. Sea Pugh Lymphocytes/100 WBC (Bld) 14.7 % Critically low 20.5-60.0 [facility] Comment on above: Performed By: #### H STROPN, CMP, CRP #### [facility] [address] [address] [address] Sea Pugh MANUAL DIFF REQ NO Normal [facility] Comment on above: Performed By: #### H STROPN, CMP, CRP #### [facility] [address] [address] [address] Sea Pugh MCH (RBC) [Entitic mass] 29.6 pg Normal 25.9-34.0 [facility] Comment on above: Performed By: #### H STROPN, CMP, CRP #### [facility] [address] [address] [address] Sea Pugh MCHC (RBC) [Mass/Vol] 35.8 g/dL Critically high 29.9-35.2 [facility] Comment on above: Performed By: #### H STROPN, CMP, CRP #### [facility] [address] [place] [address] Dr. Sea Pugh MCV (RBC) [Entitic vol] 82.9 fL Normal 80.0-94.0 [facility] Comment on above: Performed By: #### H STROPN, CMP, CRP #### [facility] [address] [place] [address] Dr. Sea Pugh MONO # 0.7 103/ul Normal 0.3-0.8 [facility] Comment on above: Performed By: #### H STROPN, CMP, CRP #### [facility] [address] [address] [address] Sea Pugh Monocytes/100 WBC (Bld) 9.4 % Normal 1.7-12.0 [facility] Comment on above: Performed By: #### H STROPN, CMP, CRP #### [facility] [address] [place] [address] Dr. Sea Pugh NEUT # 5.9 103/ul Normal 1.4-6.5 [facility] Comment on above: Performed By: #### H STROPN, CMP, CRP #### [facility] [address] [place] [address] Dr. Sea Pugh Neutrophils/100 WBC (Bld) 74.3 % Normal 43.0-75.0 [facility] Comment on above: Performed By: #### H STROPN, CMP, CRP #### [facility] [address] [address] [address] Sea Pugh Platelet mean volume (Bld) [Entitic vol] 9.4 fL Critically low 9.5-13.5 [facility] Comment on above: Performed By: #### H STROPN, CMP, CRP #### [facility] [address] [address] [address] Sea Pugh PLT 215 103/ul Normal 150-450 [facility] Comment on above: Performed By: #### H STROPN, CMP, CRP #### [facility] [address] [address] [address] Sea Pugh RBC 4.49 106/ul Critically low 4.70-6.10 [facility] Comment on above: Performed By: #### H STROPN, CMP, CRP #### [facility] [address] [address] [address] Sea Pugh WBC 7.9 103/ul Normal 4.0-11.0 [facility] Comment on above: Performed By: #### H STROPN, CMP, CRP #### [facility] [address] [address] [address] Sea Pugh [facility]on [facility]-24 SARS-CoV-2 (COVID-19) RNA [place]+probe Ql (Unsp spec) Not detected Normal NOT DETECTED [facility] Comment on above: Result Comment: When [...] for this test is supported by the [employer] of Health and Human Service's declaration that [...] used). Performed By: #### D DIM #### [facility] [address] [address] [address] Sea Pugh POINT OF CARE GLUCOSEon 03-24 Glucose [Mass/Vol] 134 mg/dL Critically high 74-106 [facility] Comment on above: Performed By: #### D DIM #### [facility] [address] [place] [address] Dr. Sea Pugh PROF CHEM 8 (BAS METB)on Anion gap [Moles/Vol] 15.3 mmol/L Normal [facility] Comment on above: Performed By: #### B MP ####[facility] [address] [address]Dr. Sea Pugh Calcium [Mass/Vol] 8.9 mg/dL Normal 8.5-10.1 [facility] Comment on above: Performed By: #### B MP ####[facility] [address] [address]Dr. Sea Pugh Chloride [Moles/Vol] 101 mmol/L Normal 98-107 [facility] Comment on above: Performed By: #### B MP ####[facility] [address] [address]Dr. Sea Pugh CO2 [Moles/Vol] 25.5 mmol/L Normal 21.0-32.0 [facility] Comment on above: Performed By: #### B MP ####[facility] [address] [address]Dr. Sea Pugh Creatinine [Mass/Vol] 1.09 mg/dL Normal 0.70-1.30 [facility] Comment on above: Performed By: #### B MP ####[facility] [address] [address]Dr. Sea Pugh EGFR-AF ROMANIAN >60 Normal >=60 [facility] Comment on above: Performed By: #### B MP ####[facility] [address] [id number]. Sea Pugh EGFR-NON AF ROMANIAN >60 Normal >=60 [facility] Comment on above: Performed By: #### B MP ####[facility] [address] [address]Dr. Sea Keaton Glucose [Mass/Vol] 150 mg/dL Critically high 74-106 [facility] Comment on above: Performed By: #### B MP ####[facility] [address] [address]Dr. Sea Keaton Potassium [Moles/Vol] 3.8 mmol/L Normal 3.5-5.1 [facility] Comment on above: Performed By: #### B MP ####[facility] [address] [address]. Sea Keaton Sodium [Moles/Vol] 138 mmol/L Normal 136-145 [facility] Comment on above: Performed By: #### B MP ####[facility] [address] [address]Dr. Sea Keaton Urea nitrogen [Mass/Vol] 11.0 mg/dL Normal 7.0-18.0 [facility] Comment on above: Performed By: #### B MP ####[facility] [address] [address]Dr. Sea Keaton Urea nitrogen/Creatinine [Mass ratio] 10.1 mg/mg Normal [facility] Comment on above: Performed By: #### B MP ####[facility] [address] [address]Dr. Sea Keaton TROPONIN, HIGH SENSITIVITYon 04-20-2022 HSTROP 136.3 pg/mL Critically high 4.0-76.1 [facility] Comment on above: Result Comment: CUT- OFF POINTS HAVE BEEN ESTABLISHED BASED ON THE FOURTH UNIVERSAL DEFINITIONS OF MYOCARDIAL INFARCTION. THE UPPER REFERENCE LIMIT (URL) OF TROPONIN, DEFINED THE 99TH PERCENTILE OF cTnI DISTRIBUTION IN A REFERENCE POPULATION, HAS BEEN CONFIRMED THE DECISION THRESHOLD FOR MS DIAGNOSIS. Performed By: #### D DIM #### [facility] [address] [address] [address] Sea Pugh HSTROP 141.1 pg/mL Critically high 4.0-76.1 [facility] Comment on above: Result Comment: CUT- OFF POINTS HAVE BEEN ESTABLISHED BASED ON THE FOURTH UNIVERSAL DEFINITIONS OF MYOCARDIAL INFARCTION. THE UPPER REFERENCE LIMIT (URL) OF TROPONIN, DEFINED THE 99TH PERCENTILE OF cTnI DISTRIBUTION IN A REFERENCE POPULATION, HAS BEEN CONFIRMED THE DECISION THRESHOLD FOR MS DIAGNOSIS. Performed By: #### H STROPN #### [facility] [address] [address] [address] Sea Pugh CARDIAC SRINIVASAN ADMITon 023 CK [Catalytic activity/Vol] 266 U/L Normal 39-308 [facility] Comment on above: Performed By: #### B DIANA, SANJEEV ####[facility] [address] [address]Dr. Sea Pugh CK.MB [Mass/Vol] 4.18 ng/mL Critically high <=3.60 [facility] Comment on above: Performed By: #### B DIANA, DOUGIEDM ####[facility] [address] [id number] Sea Pugh HSTROP 32.5 pg/mL Normal 4.0-76.1 [facility] Comment on above: Result Comment: CUT- OFF POINTS HAVE BEEN ESTABLISHED BASED ON THE FOURTH UNIVERSAL DEFINITIONS OF MYOCARDIAL INFARCTION. THE UPPER REFERENCE LIMIT (URL) OF TROPONIN, DEFINED THE 99TH PERCENTILE OF cTnI DISTRIBUTION IN A REFERENCE POPULATION, HAS BEEN CONFIRMED THE DECISION THRESHOLD FOR MS DIAGNOSIS. Performed By: #### B DIANA, CMADM ####[facility] [address] [id number] Sea Pugh RAMONE 241 ng/mL Critically high 16-96 [facility] Comment on above: Performed By: #### B DIANA, CMADM ####[facility] [address] [id number] Sea Pugh CBC AUTO DIFFon 04-19-2022 BASO # 0.0 103/ul Normal 0.0-0.1 [facility] Comment on above: Performed By: #### C BC #### [facility] [address] [place] [address] Dr. Sea Pugh Basophils/100 WBC (Bld) 0.3 % Normal 0.2-2.0 [facility] Comment on above: Performed By: #### C BC #### [facility] [address] [place] [address] Dr. Sea Pugh EO # 0.2 103/ul Normal 0.0-0.7 [facility] Comment on above: Performed By: #### C BC #### [facility] [address] [place] [address] Dr. Sea Pugh Eosinophils/100 WBC (Bld) 1.4 % Normal 0.9-7.0 [facility] Comment on above: Performed By: #### C BC #### [facility] [address] [place] [address] Dr. Sea Pugh Erythrocyte distribution width (RBC) [Ratio] 13.5 % Normal 11.0-15.0 [facility] Comment on above: Performed By: #### C BC #### [facility] [address] [place] [address] Dr. Sea Pugh Hematocrit (Bld) [Volume fraction] 37.5 % Critically low 42.0-54.0 [facility] Comment on above: Performed By: #### C BC #### [facility] [address] [place] [address] Dr. Sea Pugh Hemoglobin (Bld) [Mass/Vol] 13.4 g/dL Critically low 14.0-18.0 [facility] Comment on above: Performed By: #### C BC #### [facility] [address] [place] [address] Dr. Sea Pugh IG # 0.08 10e3/ul Critically high 0.00-0.03 [facility] Comment on above: Performed By: #### C BC #### [facility] [address] [place] [address] Dr. Sea Pugh IG % 0.7 % Critically high 0.0-0.5 [facility] Comment on above: Performed By: #### C BC #### [facility] [address] [place] [address] Dr. Sea Pugh LYMPH # 1.1 103/ul Critically low 1.2-3.8 [facility] Comment on above: Performed By: #### C BC #### [facility] [address] [place] [address] Dr. Sea Pugh Lymphocytes/100 WBC (Bld) 8.7 % Critically low 20.5-60.0 [facility] Comment on above: Performed By: #### C BC #### [facility] [address] [place] [address] Dr. Sea Pugh MANUAL DIFF REQ NO Normal [facility] Comment on above: Performed By: #### C BC #### [facility] [address] [place] [address] Dr. Sea Pugh MCH (RBC) [Entitic mass] 30.0 pg Normal 25.9-34.0 [facility] Comment on above: Performed By: #### C BC #### [facility] [address] [place] [address] Dr. Sea Pugh MCHC (RBC) [Mass/Vol] 35.7 g/dL Critically high 29.9-35.2 [facility] Comment on above: Performed By: #### C BC #### [facility] [address] [place] [address] Dr. Sea Pugh MCV (RBC) [Entitic vol] 84.1 fL Normal 80.0-94.0 [facility] Comment on above: Performed By: #### C BC #### [facility] [address] [place] [address] Dr. Sea Pugh MONO # 0.8 103/ul Normal 0.3-0.8 [facility] Comment on above: Performed By: #### C BC #### [facility] [address] [place] [address] Dr. Sea Pugh Monocytes/100 WBC (Bld) 6.8 % Normal 1.7-12.0 [facility] Comment on above: Performed By: #### C BC #### [facility] [address] [place] [address] Dr. Sea Pugh NEUT # 10.0 103/ul Critically high 1.4-6.5 [facility] Comment on above: Performed By: #### C BC #### [facility] [address] [place] [address] Dr. Sea Pugh Neutrophils/100 WBC (Bld) 82.1 % Critically high 43.0-75.0 [facility] Comment on above: Performed By: #### C BC #### [facility] [address] [place] [address] Dr. Sea Pugh Platelet mean volume (Bld) [Entitic vol] 9.2 fL Critically low 9.5-13.5 [facility] Comment on above: Performed By: #### C BC #### [facility] [address] [place] [address] Dr. Sea Pugh PLT 203 103/ul Normal 150-450 [facility] Comment on above: Performed By: #### C BC #### [facility] [address] [place] [address] Dr. Sea Pugh RBC 4.46 106/ul Critically low 4.70-6.10 [facility] Comment on above: Performed By: #### C BC #### [facility] [address] [place] [address] Dr. Sea Pugh WBC 12.1 103/ul Critically high 4.0-11.0 [facility] Comment on above: Performed By: #### C BC #### [facility] [address] [place] [address] CSPINE WO CONon [...] REINA GOMEZ Date: 2022-04-19 20:22 Normal [facility] [address] STROKE HEAD WOon 04-19-19 23 [...] by: OBI MIDDLETON Date: 2022-04-19 20:08 Normal [facility] CTA CHEST WO W CONon 023 [...] by: RIC MOON Date: 2022-04-19 21:52 Normal [facility] D-DIMERon 04-19-2022 D-DIMER 2.01 mg/L FEU Critically high <=0.59 [facility] Comment on above: Performed By: #### D DIM #### [facility] [address] [address] [address] Sea Pugh D-DIMER COMMENTS SEE BELOW Normal [facility] Comment on above: Result Comment: Incr [...] hospitalization. Performed By: #### D DIM #### [facility] [address] [place], [place] [address] Dr. Sea Pugh PROF CHEM 8 (BAS METB)on Anion gap [Moles/Vol] 19.2 mmol/L Normal [facility] Comment on above: Performed By: #### B MP, CMADM ####[facility] [address] [place], [place] [address]PvDr. Sea Pugh Calcium [Mass/Vol] 9.1 mg/dL Normal 8.5-10.1 [facility] Comment on above: Performed By: #### B SANJEEV ORTIZ ####[facility] [address] [address]Dr. Sea Pugh Chloride [Moles/Vol] 98 mmol/L Normal 98-107 [facility] Comment on above: Performed By: #### B DIANA, SANJEEV ####[facility] [address] [address]Dr. Sea Pugh CO2 [Moles/Vol] 21.4 mmol/L Normal 21.0-32.0 [facility] Comment on above: Performed By: #### SANJEEV Martins MP ####[facility] [address] [place], [place] [address]Dr. Sea Pugh Creatinine [Mass/Vol] 1.45 mg/dL Critically high 0.70-1.30 [facility] Comment on above: Performed By: #### SANJEEV Martins MP ####[facility] [address] [place], [place] [address]Dr. Sea Pugh EGFR-AF ROMANIAN 58 mL/min/1.73m2 Critically low >=60 [facility] Comment on above: Performed By: #### SANJEEV Martins MP ####[facility] [address] [place], [place] [address]Dr. Sea Pugh EGFR-NON AF ROMANIAN 47 mL/min/1.73m2 Critically low >=60 [facility] Comment on above: Performed By: #### Lakshmi ORTIZ, SANJEEV ####[facility] [address] [address]Dr. Sea Pugh Glucose [Mass/Vol] 221 mg/dL Critically high 74-106 [facility] Comment on above: Performed By: #### SANJEEV Martins MP ####[facility] [address] [place], [place] [address]Dr. Sea Pugh Potassium [Moles/Vol] 3.6 mmol/L Normal 3.5-5.1 [facility] Comment on above: Performed By: #### SANJEEV Martins MP ####[facility] [address] [place], [place] [address]Jt. Sea Pugh Sodium [Moles/Vol] 135 mmol/L Critically low 136-145 [facility] Comment on above: Performed By: #### B DIANA, SANJEEV ####[facility] [address] [place], [place] [address]Zf. Sea Pugh Urea nitrogen [Mass/Vol] 12.0 mg/dL Normal 7.0-18.0 [facility] Comment on above: Performed By: #### B DIANA, SANJEEV ####[facility] [address] [place], [place] [address]Bb. Sea Pugh Urea nitrogen/Creatinine [Mass ratio] 8.3 mg/mg Normal [facility] Comment on above: Performed By: #### B DIANA, SANJEEV ####[facility] [address] [place], [place] [address]Rd. Sea Pugh XR CHEST 1 Von 04-19-2022 XR CHEST 1 V EXAMINATION: XR CHES T 1 V HISTORY: Left arm weakness and tingling. 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 COMPARISON: 09/22/2021 portable chest TECHNIQUE: Portable chest FINDINGS: The lung parenchyma is free of consolidation or infiltrate. No pneumothorax or pleural effusion. The cardiac, mediastinal and hilar contours are normal. The visualized osseous structures exhibit no gross abnormality. IMPRESSION: No acute cardiopulmonary abnormality. Electronically authenticated by: REINA GOMEZ Date: 2022-04-19 20:12 Normal [facility] XR MODIFIED BARIUM SWALLOWon 12-20-2021 XR MODIFIED [...] by: REINA GO Date: 2021-12-20 10:49 Normal [facility] CARDIAC SRINIVASAN 3-6on 2 CK [Catalytic activity/Vol] 63 U/L Normal 39-308 [facility] Comment on above: Performed By: #### C MREP ####[facility] [address] [id number]. Sea Pugh CK.MB [Mass/Vol] 1.00 ng/mL Normal <=3.60 [facility] Comment on above: Performed By: #### C MREP ####[facility] [address] [id number]. Sea Pugh HSTROP 7.1 pg/mL Normal 4.0-76.1 [facility] Comment on above: Result Comment: CUT- OFF POINTS HAVE BEEN ESTABLISHED BASED ON THE FOURTH UNIVERSAL DEFINITIONS OF MYOCARDIAL INFARCTION. THE UPPER REFERENCE LIMIT (URL) OF TROPONIN, DEFINED THE 99TH PERCENTILE OF cTnI DISTRIBUTION IN A REFERENCE POPULATION, HAS BEEN CONFIRMED THE DECISION THRESHOLD FOR MS DIAGNOSIS. Performed By: #### C MREP ####[facility] [address] [address]Dr. Sea Pugh CARDIAC SRINIVASAN ADMITon 022 CK [Catalytic activity/Vol] 66 U/L Normal 39-308 [facility] Comment on above: Performed By: #### D DIM #### [facility] [address] [place] [address] Dr. Sea Pugh CK.MB [Mass/Vol] 0.93 ng/mL Normal <=3.60 [facility] Comment on above: Performed By: #### D DIM #### [facility] [address] [place] [address] Dr. Sea Pugh HSTROP 8.2 pg/mL Normal 4.0-76.1 [facility] Comment on above: Result Comment: CUT- OFF POINTS HAVE BEEN ESTABLISHED BASED ON THE FOURTH UNIVERSAL DEFINITIONS OF MYOCARDIAL INFARCTION. THE UPPER REFERENCE LIMIT (URL) OF TROPONIN, DEFINED THE 99TH PERCENTILE OF cTnI DISTRIBUTION IN A REFERENCE POPULATION, HAS BEEN CONFIRMED THE DECISION THRESHOLD FOR MS DIAGNOSIS. Performed By: #### D DIM #### [facility] [address] [address] [address] Sea Pugh RAMONE 62 ng/mL Normal 16-96 [facility] Comment on above: Performed By: #### D DIM #### [facility] [address] [address] [address] Sea Pugh CBC AUTO DIFFon 12-06-2021 BASO # 0.0 103/ul Normal 0.0-0.1 [facility] Comment on above: Performed By: #### D DIM #### [facility] [address] [address] [address] Sea Pugh Basophils/100 WBC (Bld) 0.3 % Normal 0.2-2.0 [facility] Comment on above: Performed By: #### D DIM #### [facility] [address] [address] [address] Sea Pugh EO # 0.5 103/ul Normal 0.0-0.7 [facility] Comment on above: Performed By: #### D DIM #### [facility] [address] [address] [address] Sea Pugh Eosinophils/100 WBC (Bld) 5.4 % Normal 0.9-7.0 [facility] Comment on above: Performed By: #### D DIM #### [facility] [address] [address] [address] Sea Pugh Erythrocyte distribution width (RBC) [Ratio] 13.7 % Normal 11.0-15.0 [facility] Comment on above: Performed By: #### D DIM #### [facility] [address] [address] [address] Sea Pugh Hematocrit (Bld) [Volume fraction] 34.9 % Critically low 42.0-54.0 [facility] Comment on above: Performed By: #### D DIM #### [facility] Laboratory [address] [address] [address] Sea Pugh Hemoglobin (Bld) [Mass/Vol] 12.2 g/dL Critically low 14.0-18.0 [facility] Comment on above: Performed By: #### D DIM #### [facility] [address] [address] [address] Sea Pugh IG # 0.07 10e3/ul Critically high 0.00-0.03 [facility] Comment on above: Performed By: #### D DIM #### [facility] [address] [address] [address] Sea Pugh IG % 0.7 % Critically high 0.0-0.5 [facility] Comment on above: Performed By: #### D DIM #### [facility] [address] [place] [address] Dr. Sae Pugh LYMPH # 1.3 103/ul Normal 1.2-3.8 [facility] Comment on above: Performed By: #### D DIM #### [facility] [address] [place] [address] Dr. Sea Pugh Lymphocytes/100 WBC (Bld) 13.5 % Critically low 20.5-60.0 [facility] Comment on above: Performed By: #### D DIM #### [facility] [address] [place] [address] Dr. Sea Pugh MANUAL DIFF REQ NO Normal [facility] Comment on above: Performed By: #### D DIM #### [facility] [address] [place] [address] Dr. Sea Pugh MCH (RBC) [Entitic mass] 30.5 pg Normal 25.9-34.0 [facility] Comment on above: Performed By: #### D DIM #### [facility] [address] [place] [address] Dr. Sea Pugh MCHC (RBC) [Mass/Vol] 35.0 g/dL Normal 29.9-35.2 [facility] Comment on above: Performed By: #### D DIM #### [facility] [address] [place] [address] Dr. Sea Pugh MCV (RBC) [Entitic vol] 87.3 fL Normal 80.0-94.0 [facility] Comment on above: Performed By: #### D DIM #### [facility] [address] [place] [address] Dr. Sea Pugh MONO # 1.3 103/ul Critically high 0.3-0.8 [facility] Comment on above: Performed By: #### D DIM #### [facility] [address] [address] [address] Sea Pugh Monocytes/100 WBC (Bld) 12.9 % Critically high 1.7-12.0 [facility] Comment on above: Performed By: #### D DIM #### [facility] [address] [address] [address] Sea Pugh NEUT # 6.7 103/ul Critically high 1.4-6.5 [facility] Comment on above: Performed By: #### D DIM #### [facility] [address] [address] [address] Sea Pugh Neutrophils/100 WBC (Bld) 67.2 % Normal 43.0-75.0 [facility] Comment on above: Performed By: #### D DIM #### [facility] [address] [place] [address] Dr. Sea Pugh Platelet mean volume (Bld) [Entitic vol] 9.7 fL Normal 9.5-13.5 [facility] Comment on above: Performed By: #### D DIM #### [facility] [address] [address] [address] Sea Pugh PLT 226 103/ul Normal 150-450 [facility] Comment on above: Performed By: #### D DIM #### [facility] [address] [address] [address] Sea Pugh RBC 4.00 106/ul Critically low 4.70-6.10 [facility] Comment on above: Performed By: #### D DIM #### [facility] [address] [address] [address] Sea Pguh WBC 10.0 103/ul Normal 4.0-11.0 [facility] Comment on above: Performed By: #### D DIM #### [facility] [address] [address] [address] Sea Pugh CTA CHEST WO W [...] OSITO CUELLO Date: 2021-12-06 01:29 Normal [facility] D-DIMERon 12-06-2021 D-DIMER 1.11 mg/L FEU Critically high <=0.59 [facility] Comment on above: Performed By: #### D DIM #### [facility] [address] [place] [address] Dr. Sea Pugh D-DIMER COMMENTS SEE BELOW Normal [facility] Comment on above: Result Comment: [...] hospitalization. Performed By: #### D DIM #### [facility] [address] [address] [address] Sea Pugh PROF CHEM 8 (BAS METB)on Anion gap [Moles/Vol] 9.5 mmol/L Normal [facility] Comment on above: Performed By: #### H STROPN, CMP, CRP #### [facility] [address] [address] [address] Sea Pugh Calcium [Mass/Vol] 8.6 mg/dL Normal 8.5-10.1 [facility] Comment on above: Performed By: #### H STROPN, CMP, CRP #### [facility] [address] [address] [address] Sea Pugh Chloride [Moles/Vol] 100 mmol/L Normal 98-107 [facility] Comment on above: Performed By: #### H STROPN, CMP, CRP #### [facility] [address] [address] [address] Sea Pugh CO2 [Moles/Vol] 25.8 mmol/L Normal 21.0-32.0 [facility] Comment on above: Performed By: #### H STROPN, CMP, CRP #### [facility] [address] [address] [address] Sea Pugh Creatinine [Mass/Vol] 1.12 mg/dL Normal 0.70-1.30 [facility] Comment on above: Performed By: #### H STROPN, CMP, CRP #### [facility] [address] [address] [address] Sea Pugh EGFR-AF ROMANIAN >60 Normal >=60 [facility] Comment on above: Performed By: #### H STROPN, CMP, CRP #### [facility] [address] [address] [address] Sea Pugh EGFR-NON AF ROMANIAN >60 Normal >=60 [facility] Comment on above: Performed By: #### H STROPN, CMP, CRP #### [facility] [address] [address] [address] Sea Pugh Glucose [Mass/Vol] 201 mg/dL Critically high 74-106 [facility] Comment on above: Performed By: #### H STROPN, CMP, CRP #### [facility] [address] [address] [address] Sea Pugh Potassium [Moles/Vol] 3.3 mmol/L Critically low 3.5-5.1 [facility] Comment on above: Performed By: #### H STROPN, CMP, CRP #### [facility] [address] [address] [address] Sea Pugh Sodium [Moles/Vol] 132 mmol/L Critically low 136-145 [facility] Comment on above: Performed By: #### H STROPN, CMP, CRP #### [facility] [address] [address] [address] Sea Pugh Urea nitrogen [Mass/Vol] 16.0 mg/dL Normal 7.0-18.0 [facility] Comment on above: Performed By: #### H STROPN, CMP, CRP #### [facility] [address] [address] [address] Sea Pugh Urea nitrogen/Creatinine [Mass ratio] 14.3 mg/mg Normal [facility] Comment on above: Performed By: #### H STROPN, CMP, CRP #### [facility] [address] [address] [address] Sea Pugh Basic Metabolic Panelon 11-21 Anion gap [Moles/Vol] 12 mmol/L 9 - 17 mmol/L [facility] Calcium [Mass/Vol] 8.3 mg/dL Low 8.6 - 10. 4 mg/dL [facility] Chloride [Moles/Vol] 100 mmol/L 98 - 10 7 mmol/L [facility] CO2 [Moles/Vol] 21 mmol/L 20 - 31 mmol/L [facility] Creatinine [Mass/Vol] 0.69 mg/dL Low 0.7 - 1.2 mg/dL [facility] GFR >60 60 - PI NF mL/min [facility] GFR Non- >60 60 - PINF mL/min [facility] GFR/1.73 sq M.predicted MDRD (S/P/Bld) [Vol rate/Area] [facility] Comment on above: Average GFR for 70 o r more years old: 75 mL/min/1.73sq m Chronic Kidney Disease: <60 mL/min/1.73sq m Kidney failure: <15 mL/min/1.73sq m eGFR calculated using average adult body mass. Additional eGFR calculator available at: http://www.Vinveli/Calxeda_crcl_2012.htm Glucose [Mass/Vol] 138 mg/dL High 70 - 99 mg/dL [facility] Interpretation and review of laboratory results Abnormal [facility] Potassium [Moles/Vol] 4.0 mmol/L 3.7 - 5.3 mmol/L [facility] Sodium [Moles/Vol] 133 mmol/L Low 135 - 144 mmol/L [facility] Urea nitrogen (BldV) [Mass/Vol] 12 mg/dL 8 - 23 mg/dL [facility] Basic Metabolic Profon 12-04 (cont.) Normal [facility] Comment on above: Result Comment: Aver age GFR for 70 or more years old: 75 mL/min/1.73sq m Chronic Kidney Disease: <60 mL/min/1.73sq m Kidney failure: <15 mL/min/1.73sq m eGFR calculated using average adult body mass. Additional eGFR calculator available at: http://www.Vinveli/Calxeda_crcl_2012.htm Performed By: #### DALE KINNEY, CDP #### [employer] [address] [place] [address] Signs Cleaner: Afshin Mansfield MD Anion gap [Moles/Vol] 12 mmol/L Normal 9-[address] [facility] Comment on above: Performed By: #### DALE KINNEY, CDP #### [employer] [address] [place] [phone] Signs Cleaner: Afshin Mansfield MD Calcium [Mass/Vol] 8.3 mg/dL Low 8.6-10.4 [facility] Comment on above: Performed By: #### I OCAL, BMP, CDP #### [facility] [address] [place] [phone] Signs Cleaner: Afshin Mansfield MD Chloride [Moles/Vol] 100 mmol/L Normal 98-107 [facility] Comment on above: Performed By: #### I OCAL, BMP, CDP #### [facility] [address] [place] [phone] Signs Cleaner: Afshin Mansfield MD CO2 [Moles/Vol] 21 mmol/L Normal 20-31 [facility] Comment on above: Performed By: #### I OCAL, BMP, CDP #### [facility] [address] [place] [phone] Signs Cleaner: Afshin Mansfield MD Creatinine [Mass/Vol] 0.69 mg/dL Low 0.70-1.[address] [facility] Comment on above: Performed By: #### I OCAL, BMP, CDP #### [facility] [employer] [address] [place] [phone] Signs Cleaner: Afshin Mansfield MD GFR, Amer >60 Normal >60 [facility] Comment on above: Performed By: #### I OCAL, BMP, CDP #### [facility] [employer] [address] [place] [phone] Signs Cleaner: Afshin Mansfield MD GFR,non Amer >60 Normal >60 [facility] Comment on above: Performed By: #### I OCAL, BMP, CDP #### [facility] [address] [place] [phone] Signs Cleaner: Afshin Mansfield MD Glucose [Mass/Vol] 138 mg/dL High 70-99 [facility] Comment on above: Performed By: #### I OCAL, BMP, CDP #### [facility] [address] [place] [address] [phone] Signs Cleaner: Afshin Mansfield MD Potassium [Moles/Vol] 4.0 mmol/L Normal 3.7-5.[address] [facility] Comment on above: Performed By: #### I OCDALE BARBER, CDP #### [facility] [address] [place] [address] Signs Cleaner: Afshin Mansfield MD Sodium [Moles/Vol] 133 mmol/L Low 135-144 [facility] Comment on above: Performed By: #### I OCDALE BARBER, CDP #### [facility] [address] [place] [address] Signs Cleaner: Afshin Mansfield MD Urea nitrogen [Mass/Vol] 12 mg/dL Normal 8-23 [facility] Comment on above: Performed By: #### I DALE REYES, CDP #### [facility] [address] [place], [place] [phone] Signs Cleaner: Afshin Mansfield MD CBC with Auto Differentialon 12-04-2021 Absolute Eos # 0.64 High [facility] Absolute Immature Granulocyte 0.06 [facility] Absolute Lymph # 1.09 Low [facility] Absolute [place] # 1.29 High [facility] Basophils (Bld) [#/Vol] 0.04 10*3/uL [facility] Basophils/100 WBC (Bld) 0 % 0 - 2 % [facility] Eosinophils/100 WBC (Bld) 6 % High 1 - 4 % [facility] Hematocrit (Bld) [Volume fraction] 36.1 % Low 40.7 - 50.3 % [facility] Hemoglobin (Bld) [Mass/Vol] 12.6 g/dL Low 13 - 17 g/dL [facility] Immature granulocytes/100 WBC (Bld) 1 % High 0 [facility] Interpretation and review of laboratory results Abnormal [facility] Lymphocytes/100 WBC (Bld) 9 % Low 24 - 43 % [facility] MCH (RBC) [Entitic mass] 30.1 pg 25.2 - 33.5 pg [facility] MCHC (RBC) [Mass/Vol] 34.9 g/dL High 28.4 - 34.8 g/dL [facility] MCV (RBC) [Entitic vol] 86.2 fL 82.6 - 102.9 fL [facility] Monocytes/100 WBC (Bld) 11 % 3 - 12 % [facility] NRBC Automated 0.0 0.0 per 100 WBC [facility] Platelet distribution width (Bld) [Ratio] 13.6 % 11.8 - 14.4 % [facility] Platelet mean volume (Bld) [Entitic vol] 9.8 fL 8.1 - 13.5 fL [facility] Platelets (Bld) [#/Vol] 212 10*3/uL [facility] RBC (Bld) [#/Vol] 4.19 10*6/uL Low 4.21 - 5.7 7 m/uL [facility] Segmented neutrophils/100 WBC (Bld) 73 % High 36 - 65 % [facility] Segs Absolute 8.59 High [facility] WBC (Bld) [#/Vol] 11.7 10*3/uL High [facility] CBC with Diffon 12-04-2021 Abs. Basophil 0.04 k/uL Normal 0.00-0.20 [facility] Comment on above: Performed By: #### I DALE REYES, CDP #### [employer] [facility] [phone] Signs Cleaner: Afshin Mansfield MD Abs.Imm.Granulocyte 0.06 k/uL Normal 0.00-0.30 [facility] Comment on above: Performed By: #### I DALE REYES, CDP #### [employer] [facility] [place], [place] [phone] Signs Cleaner: Afshin Mansfield MD Abs.Neutrophil (Seg) 8.59 k/uL High 1.50-8.10 [facility] Comment on above: Performed By: #### I OCSUNIL BMP, CDP #### [facility] [employer] [address] [place] [phone] Signs Cleaner: Afshin Mansfield MD Basophils/100 WBC (Bld) 0 % Normal 0-2 [facility] Comment on above: Performed By: #### I OCSUNIL, BMP, CDP #### [facility] [employer] [address] [place] [phone] Signs Cleaner: Afshin Mansfield MD Eosinophils (Bld) [#/Vol] 0.64 10*3/uL High 0.00-0.44 [facility] Comment on above: Performed By: #### I OCSUNIL BMP, CDP #### [facility] [employer] [address] [place] [phone] Signs Cleaner: Afshin Mansfield MD Eosinophils/100 WBC (Bld) 6 % High 1-4 [facility] Comment on above: Performed By: #### I OCSUNIL BMP, CDP #### [facility] [employer] [address] [place] [phone] Signs Cleaner: Afshin Mansfield MD Erythrocyte distribution width (RBC) [Ratio] 13.6 % Normal 11.8-14.4 [facility] Comment on above: Performed By: #### I OCDALE BARBER, CDP #### [facility] [employer] [address] [place] [phone] Signs Cleaner: Afshin Mansfield MD Hematocrit (Bld) [Volume fraction] 36.1 % Low 40.7-50.3 [facility] Comment on above: Performed By: #### I OCSUNIL BMP, CDP #### [facility] [address] [place] [phone] Signs Cleaner: Afshin Mansfield MD Hemoglobin (Bld) [Mass/Vol] 12.6 g/dL Low 13.0-17.0 [facility] Comment on above: Performed By: #### I OCDALE BARBER, CDP #### [facility] [employer] [address] [place] [phone] Signs Cleaner: Afshin Mansfield MD Immature granulocytes/100 WBC (Bld) 1 % High 0 [facility] Comment on above: Performed By: #### I OCSUNIL BMP, CDP #### [address] [phone] Signs Cleaner: Afshin Mansfield MD Lymphocytes (Bld) [#/Vol] 1.09 10*3/uL Low 1.10-3.70 [facility] Comment on above: Performed By: #### I DALE REYES, CDP #### [facility] [employer] [address] [place] [phone] Signs Cleaner: Afshin Mansfield MD Lymphocytes/100 WBC (Bld) 9 % Low 24-43 [facility] Comment on above: Performed By: #### I OCDALE BARBER, CDP #### [facility] [address] [place] [phone] Signs Cleaner: Afshin Mansfield MD MCH (RBC) [Entitic mass] 30.1 pg Normal 25.2-33.5 [facility] Comment on above: Performed By: #### I DALE REYES, CDP #### [place] [address] Signs Cleaner: Afshin Mansfield MD MCHC (RBC) [Mass/Vol] 34.9 g/dL High 28.4-34.[address] [facility] Comment on above: Performed By: #### I OCDALE BARBER, CDP #### [facility] [address] [place] [phone] Signs Cleaner: Afshin Mansfield MD MCV (RBC) [Entitic vol] 86.2 fL Normal 82.6-102.9 [facility] Comment on above: Performed By: #### I DALE REYES, CDP #### [facility] [place] [address] Signs Cleaner: Afshin Mansfield MD Monocytes (Bld) [#/Vol] 1.29 10*3/uL High 0.10-1.20 [facility] Comment on above: Performed By: #### I OCAL, BMP, CDP #### [facility] [address] [place] [phone] Signs Cleaner: Afshin Mansfield MD Monocytes/100 WBC (Bld) 11 % Normal 3-12 [facility] Comment on above: Performed By: #### I OCAL, BMP, CDP #### [facility] [address] [place] [phone] Signs Cleaner: Afshin Mansfield MD Neutrophil (Seg) 73 % High 36-65 [facility] Comment on above: Performed By: #### I OCAL, BMP, CDP #### [facility] [address] [place] [phone] Signs Cleaner: Afshin Mansfield MD NRBC Automated 0.0 per 100 WBC Normal 0.0 [facility] Comment on above: Performed By: #### I OCAL, BMP, CDP #### [facility] [address] [place] [phone] Signs Cleaner: Afshin Mansfield MD Platelet mean volume (Bld) [Entitic vol] 9.8 fL Normal 8.1-13.5 [facility] Comment on above: Performed By: #### I OCAL, BMP, CDP #### [facility] [employer] [address] [place] [phone] Signs Cleaner: Afshin Mansfield MD Platelets (Bld) [#/Vol] 212 10*3/uL Normal 138-453 [facility] Comment on above: Performed By: #### I OCAL, BMP, CDP #### [facility] [address] [place] [address] [phone] Signs Cleaner: Afshin Mansfield MD RBC (Bld) [#/Vol] 4.19 10*6/uL Low 4.21-5.77 [facility] Comment on above: Performed By: #### DALE KINNEY, CDP #### [facility] [address] [place], [place] [phone] Signs Cleaner: Afshin Mansfield MD WBC (Bld) [#/Vol] 11.7 10*3/uL High 3.5-11.3 [facility] Comment on above: Performed By: #### I DALE REYES, CDP #### [facility] [address] [place], [place] [phone] Signs Cleaner: Afshin Mansfield MD POC Glucose Fingerstickon Glucose [Mass/Vol] 110 mg/dL 75 - 110 mg/dL [facility] [employer] Basic Metabolic Panelon 11-21 Anion gap [Moles/Vol] 14 mmol/L 9 - 17 mmol/L [facility] Calcium [Mass/Vol] 8.0 mg/dL Low 8.6 - 10. 4 mg/dL [facility] Chloride [Moles/Vol] 101 mmol/L 98 - 10 7 mmol/L [facility] CO2 [Moles/Vol] 18 mmol/L Low 20 - 31 mmol/L [facility] Creatinine [Mass/Vol] 0.67 mg/dL Low 0.7 - 1.2 mg/dL [facility] GFR >60 60 - PI NF mL/min [facility] GFR Non- >60 60 - PINF mL/min [facility] GFR/1.73 sq M.predicted MDRD (S/P/Bld) [Vol rate/Area] [facility] [employer] Comment on above: Average GFR for 70 o r more years old: 75 mL/min/1.73sq m Chronic Kidney Disease: <60 mL/min/1.73sq m Kidney failure: <15 mL/min/1.73sq m eGFR calculated using average adult body mass. Additional eGFR calculator available at: http://www.Vinveli/multiple_crcl_2012.htm Glucose [Mass/Vol] 156 mg/dL High 70 - 99 mg/dL [facility] Interpretation and review of laboratory results Abnormal [facility] Potassium [Moles/Vol] 3.9 mmol/L 3.7 - 5.3 mmol/L [facility] Sodium [Moles/Vol] 133 mmol/L Low 135 - 144 mmol/L [facility] Urea nitrogen (BldV) [Mass/Vol] 12 mg/dL 8 - 23 mg/dL [facility] Basic Metabolic Profon 12-03 (cont.) Normal [facility] Comment on above: Result Comment: Aver age GFR for 70 or more years old: 75 mL/min/1.73sq m Chronic Kidney Disease: <60 mL/min/1.73sq m Kidney failure: <15 mL/min/1.73sq m eGFR calculated using average adult body mass. Additional eGFR calculator available at: http://www.Vinveli/multiple_crcl_2012.htm Performed By: #### DALE KINNEY CDP #### [facility] [address] [place] [address] Signs Cleaner: Afshin Mansfield MD Anion gap [Moles/Vol] 14 mmol/L Normal 9-[address] [facility] Comment on above: Performed By: #### DALE KINNEY, CDP #### [employer] [address] [place] [address] [phone] Signs Cleaner: Afshin Mansfield MD Calcium [Mass/Vol] 8.0 mg/dL Low 8.6-10.4 [facility] Comment on above: Performed By: #### DALE KINNEY, CDP #### [facility] [address] [place] [phone] Signs Cleaner: Afshin Mansfield MD Chloride [Moles/Vol] 101 mmol/L Normal 98-107 [facility] Comment on above: Performed By: #### I OCAL, BMP, CDP #### [facility] [address] [place] [phone] Signs Cleaner: Afshin Mansfield MD CO2 [Moles/Vol] 18 mmol/L Low 20-31 [facility] Comment on above: Performed By: #### I OCAL, BMP, CDP #### [facility] [address] [place] [phone] Signs Cleaner: Afshin Mansfield MD Creatinine [Mass/Vol] 0.67 mg/dL Low 0.70-1.[address] [facility] Comment on above: Performed By: #### I OCAL, BMP, CDP #### [facility] [address] [place] [phone] Signs Cleaner: Afshin Mansfield MD GFR, Amer >60 Normal >60 [facility] Comment on above: Performed By: #### I OCAL, BMP, CDP #### [facility] [address] [place] [phone] Signs Cleaner: Afshin Mansfield MD GFR,non Amer >60 Normal >60 [facility] Comment on above: Performed By: #### I OCAL, BMP, CDP #### [facility] [address] [place] [phone] Signs Cleaner: Afshin Mansfield MD Glucose [Mass/Vol] 156 mg/dL High 70-99 [facility] Comment on above: Performed By: #### I OCAL, BMP, CDP #### [facility] [address] [place] [phone] Signs Cleaner: Afshin Mansfield MD Potassium [Moles/Vol] 3.9 mmol/L Normal 3.7-5.[address] [facility] Comment on above: Performed By: #### I OCAL, BMP, CDP #### [facility] [address] [place] [address], [place] [phone] Signs Cleaner: Afshin Mansfield MD Sodium [Moles/Vol] 133 mmol/L Low 135-144 [facility] Comment on above: Performed By: #### I OCDALE BARBER, CDP #### [facility] [address] [place], [place] [phone] Signs Cleaner: Afshin Mansfield MD Urea nitrogen [Mass/Vol] 12 mg/dL Normal 8-23 [facility] Comment on above: Performed By: #### I OCDALE BARBER, CDP #### [facility] [address] [place], [place] [phone] Signs Cleaner: Afshin Mansfield MD CBC with Auto Differentialon 12-03-2021 Absolute Eos # 0.54 High [facility] Absolute Immature Granulocyte 0.07 [facility] Absolute Lymph # 1.07 Low [facility] Absolute [place] # 1.20 [facility] Basophils (Bld) [#/Vol] 0.03 10*3/uL [facility] Basophils/100 WBC (Bld) 0 % 0 - 2 % [facility] Eosinophils/100 WBC (Bld) 5 % High 1 - 4 % [facility] Hematocrit (Bld) [Volume fraction] 37.0 % Low 40.7 - 50.3 % [facility] Hemoglobin (Bld) [Mass/Vol] 13.1 g/dL 13 - 17 g/dL [facility] Immature granulocytes/100 WBC (Bld) 1 % High 0 [facility] Interpretation and review of laboratory results Abnormal [facility] Lymphocytes/100 WBC (Bld) 10 % Low 24 - 43 % [facility] MCH (RBC) [Entitic mass] 30.8 pg 25.2 - 33.5 pg [facility] MCHC (RBC) [Mass/Vol] 35.4 g/dL High 28.4 - 34.8 g/dL [facility] MCV (RBC) [Entitic vol] 87.1 fL 82.6 - 102.9 fL [facility] Monocytes/100 WBC (Bld) 11 % 3 - 12 % [facility] NRBC Automated 0.0 0.0 per 100 WBC [facility] Platelet distribution width (Bld) [Ratio] 13.7 % 11.8 - 14.4 % [facility] Platelet mean volume (Bld) [Entitic vol] 10.6 fL 8.1 - 13.5 fL [facility] Platelets (Bld) [#/Vol] 223 10*3/uL [facility] RBC (Bld) [#/Vol] 4.25 10*6/uL 4.21 - 5.7 7 m/uL [facility] Segmented neutrophils/100 WBC (Bld) 73 % High 36 - 65 % [facility] Segs Absolute 8.06 [facility] WBC (Bld) [#/Vol] 11.0 10*3/uL [facility] CBC with Diffon 12-03-2021 Abs. Basophil 0.03 k/uL Normal 0.00-0.20 [facility] Comment on above: Performed By: #### DALE KINNEY, CDP #### [facility] [address] [place] [address] Signs Cleaner: Afshin Mansfield MD Abs.Imm.Granulocyte 0.07 k/uL Normal 0.00-0.30 [facility] Comment on above: Performed By: #### DALE KINNEY, CDP #### [facility] [address] [place] [address] Signs Cleaner: Afshin Mansfield MD Abs.Neutrophil (Seg) 8.06 k/uL Normal 1.50-8.10 [facility] Comment on above: Performed By: #### DALE KINNEY, CDP #### [facility] [address] [place] [address] Signs Cleaner: Afshin Mansfield MD Basophils/100 WBC (Bld) 0 % Normal 0-2 [facility] Comment on above: Performed By: #### I OCSUNIL BMP, CDP #### [facility] [address] [place] [phone] Signs Cleaner: Afshin Mansfield MD Eosinophils (Bld) [#/Vol] 0.54 10*3/uL High 0.00-0.44 [facility] Comment on above: Performed By: #### I OCSUNIL BMP, CDP #### [facility] [address] [place] [phone] Signs Cleaner: Afshin Mansfield MD Eosinophils/100 WBC (Bld) 5 % High 1-4 [facility] Comment on above: Performed By: #### I OCDALE BARBER, CDP #### [facility] [address] [place] [phone] Signs Cleaner: Afshin Mansfield MD Erythrocyte distribution width (RBC) [Ratio] 13.7 % Normal 11.8-14.4 [facility] Comment on above: Performed By: #### I OCDALE BARBER, CDP #### [facility] [address] [place] [phone] Signs Cleaner: Afshin Mansfield MD Hematocrit (Bld) [Volume fraction] 37.0 % Low 40.7-50.3 [facility] Comment on above: Performed By: #### I OCDALE BARBER, CDP #### [facility] [address] [place] [phone] Signs Cleaner: Afshin Mansfiedl MD Hemoglobin (Bld) [Mass/Vol] 13.1 g/dL Normal 13.0-17.0 [facility] Comment on above: Performed By: #### I OCSUNIL BMP, CDP #### [facility] [address] [place] [phone] Signs Cleaner: Afshin Mansfield MD Immature granulocytes/100 WBC (Bld) 1 % High 0 [facility] Comment on above: Performed By: #### I OCSUNIL BMP, CDP #### [facility] [address] [place] [phone] Signs Cleaner: Afshin Mansfield MD Lymphocytes (Bld) [#/Vol] 1.07 10*3/uL Low 1.10-3.70 [facility] Comment on above: Performed By: #### I OCSUNIL, BMP, CDP #### [facility] [address] [place] [phone] Signs Cleaner: Afshin Mansfield MD Lymphocytes/100 WBC (Bld) 10 % Low 24-43 [facility] Comment on above: Performed By: #### I OCDALE BARBER, CDP #### [facility] [address] [place] [phone] Signs Cleaner: Afshin Mansfield MD MCH (RBC) [Entitic mass] 30.8 pg Normal 25.2-33.5 [facility] Comment on above: Performed By: #### I OCDALE BARBER, CDP #### [address] [address] Signs Cleaner: Afshin Mansfield MD MCHC (RBC) [Mass/Vol] 35.4 g/dL High 28.4-34.[address] [facility] Comment on above: Performed By: #### I OCDALE BARBER, CDP #### [address] [phone] Signs Cleaner: Afshin Mansfield MD MCV (RBC) [Entitic vol] 87.1 fL Normal 82.6-102.9 [facility] Comment on above: Performed By: #### I OCDALE BARBER, CDP #### [facility] [address] [place] [phone] Signs Cleaner: Afshin Mansfield MD Monocytes (Bld) [#/Vol] 1.20 10*3/uL Normal 0.10-1.20 [facility] Comment on above: Performed By: #### I OCSUNIL, BMP, CDP #### [facility] [address] [place] [phone] Signs Cleaner: Afshin Mansfield MD Monocytes/100 WBC (Bld) 11 % Normal 3-12 [facility] Comment on above: Performed By: #### I OCAL, BMP, CDP #### [facility] [address] [place] [phone] Signs Cleaner: Afshin Mansfield MD Neutrophil (Seg) 73 % High 36-65 [facility] Comment on above: Performed By: #### I OCAL, BMP, CDP #### [facility] [address] [place] [phone] Signs Cleaner: Afshin Mansfield MD NRBC Automated 0.0 per 100 WBC Normal 0.0 [facility] Comment on above: Performed By: #### I OCAL, BMP, CDP #### [facility] [address] [place] [phone] Signs Cleaner: Afshin Mansfield MD Platelet mean volume (Bld) [Entitic vol] 10.6 fL Normal 8.1-13.5 [facility] Comment on above: Performed By: #### I OCAL, BMP, CDP #### [facility] [address] [place] [phone] Signs Cleaner: Afshin Mansfield MD Platelets (Bld) [#/Vol] 223 10*3/uL Normal 138-453 [facility] Comment on above: Performed By: #### I OCAL, BMP, CDP #### [facility] [address] [place] [phone] Signs Cleaner: Afshin Mansfield MD RBC (Bld) [#/Vol] 4.25 10*6/uL Normal 4.21-5.77 [facility] Comment on above: Performed By: #### I OCAL, BMP, CDP #### [facility] [address] [place] [address] [place] [address] Signs Cleaner: Afshin Mansfield MD WBC (Bld) [#/Vol] 11.0 10*3/uL Normal 3.5-11.3 [facility] Comment on above: Performed By: #### I DALE REYES, CDP #### [facility] [place] [address] Signs Cleaner: Afshin Mansfield MD Cult,Bloodon 12-03-2021 Cult,Blood Specimen Description .BLOOD Special Requests L HAND 20ML Culture NO GROWTH 5 DAYS Report Status FINAL 12/03/2021 [facility] Comment on above: Performed By: #### B C #### [facility] [address] [place] [phone] Signs Cleaner: Afshin Mansfield MD Cult,Blood Specimen Description .BLOOD Special Requests r hand 20ml Culture NO GROWTH 5 DAYS Report Status FINAL 12/03/2021 [facility] Comment on above: Performed By: #### I DALE REYES, CDP #### [facility] [address] [place] [phone] Signs Cleaner: Afshin Mansfield MD Culture, Blood 1on 2 Bacteria identified Cx Nom (Unsp spec) NO GROWTH 5 DAYS [facility] Special Requests L HAND 20ML [facility] Specimen Description .BLOOD [facility] Bacteria identified Cx Nom (Unsp spec) NO GROWTH 5 DAYS [facility] Special Requests r hand 20ml [facility] Specimen Description .[facility]OOD [facility] EKG 12 LeadOrdered By: Unkno wn Result on 12-03-2021 Atrial Rate 90 BPM [facility] Q-T Interval 422 ms [facility] QRS Duration 88 ms [facility] QTc Calculation (Bazett) 516 ms [facility] R [place] 23 degrees [facility] T [place] 48 degrees [facility] Ventricular Rate 90 BPM [facility] EKG 12 Leadon 12-03-2021 Atrial flutter with variable block Premature supraventricular complexes and fusion complexes Low voltage QRS Inferior 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) Prolonged QT Abnormal ECG When compared with ECG of 02-DEC-2021 03:02, Junctional rhythm has replaced Atrial fibrillation ST no longer depressed in Inferior leads ST no longer depressed in Anterior leads [facility] STV MUSE Result, Unknown Provider - 12/03/2021 Atrial flutter with variable block Premature supraventricular complexes and fusion complexes Low voltage QRS Inferior 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) Prolonged QT Abnormal ECG When compared with ECG of 02-DEC-2021 03:02, Junctional rhythm has replaced Atrial fibrillation ST no longer depressed in Inferior leads ST no longer depressed in Anterior leads [facility] Work Phone: Osmolality, Urineon 12-04-19 22 Osmolality - Urine 670 mOsm/kg Normal 80-1300 [facility] Comment on above: Performed By: #### I OCAL, BMP, CDP #### [facility] [address] [place] [address] Signs Cleaner: Afshin Mansfield MD Osmolality, Ur 670 [facility] POC Glucose Fingerstickon Glucose [Mass/Vol] 151 mg/dL High 75 - 110 mg/dL [facility] Interpretation and review of laboratory results Abnormal [facility] Glucose [Mass/Vol] 172 mg/dL High 75 - 110 mg/dL [facility] Interpretation and review of laboratory results Abnormal [facility] Glucose [Mass/Vol] 160 mg/dL High 75 - 110 mg/dL [facility] Interpretation and review of laboratory results Abnormal [facility] SODIUM, URINE, RANDOMon 11-21 Sodium (U) [Moles/Vol] 154 mmol/L [facility] Comment on above: No normal range esta blished. [facility] Sodium, Random Uron 12-04-19 Sodium (U) [Moles/Vol] 154 mmol/L Normal [facility] Comment on above: Result Comment: No n ormal range established. Performed By: #### I OCAL, BMP, CDP #### [employer] [address] [place] [address] Signs Cleaner: Afshin Mansfield MD EKG 12 LeadOrdered By: Huan Mayo on 12-02-2021 Atrial Rate 125 BPM [employer] Phone: Q-T Interval 322 ms [employer] Phone: QRS Duration 84 ms [facility] [employer] Phone: QTc Calculation (Bazett) 470 ms [employer] Phone: R [place] 14 degrees [facility] [employer] Phone: T [place] -59 degrees [employer] Phone: Ventricular Rate 128 BPM [facility] Work Phone: [facility] Phone: EKG 12 Leadon 12-02-2021 Atrial fibrillation with rapid ventricular response with premature ventricular or aberrantly conducted complexes Low voltage QRS 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) ACUTE MS / STEMI Consider right ventricular involvement in acute inferior infarct Abnormal ECG When compared with ECG of 02-DEC-2021 03:02, T wave inversion no longer evident in Inferior leads [facility] STV Huan Galo MD - 12/02/2021 Atrial fibrillation with rapid ventricular response with premature ventricular or aberrantly conducted complexes Low voltage QRS 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) ACUTE MS / STEMI Consider right ventricular involvement in acute inferior infarct Abnormal ECG When compared with ECG of 02-DEC-2021 03:02, T wave inversion no longer evident in Inferior leads [employer] Phone: Magnesiumon 12-02-2021 Magnesium [Mass/Vol] 2.0 mg/dL Normal 1.6-2.6 [facility] Comment on above: Performed By: #### DALE KINNEY, CDP #### [facility] [address] [place] [address] Signs Cleaner: Afshin Mansfield MD Magnesium [Mass/Vol] 2.0 mg/dL 1.6 - 2 .6 mg/dL [facility] [employer] No Panel Informationon 12-02 [facility] [employer] POC Glucose Fingerstickon Glucose [Mass/Vol] 164 mg/dL High 75 - 110 mg/dL [facility] Interpretation and review of laboratory results Abnormal [facility] Glucose [Mass/Vol] 220 mg/dL High 75 - 110 mg/dL [facility] Interpretation and review of laboratory results Abnormal [facility] Glucose [Mass/Vol] 197 mg/dL High 75 - 110 mg/dL [facility] Interpretation and review of laboratory results Abnormal [facility] Glucose [Mass/Vol] 188 mg/dL High 75 - 110 mg/dL [facility] Interpretation and review of laboratory results Abnormal [facility] Phosphoruson 12-02-2021 Phosphate [Mass/Vol] 2.8 mg/dL 2.5 - 4 .5 mg/dL [facility] Phosphorus, Inorg.on 022 Phosphorus, Inorg. 2.8 mg/dL Normal 2.5-4.5 [facility] Comment on above: Performed By: #### I DALE REYES, CDP #### [facility] [address] [place] [address] Signs Cleaner: Afshin Mansfield MD Troponinon 12-02-2021 Troponin, High Sens 15 ng/L Normal 0-22 [facility] Comment on above: Result Comment: High Sensitivity Troponin values cannot be compared with other Troponin methodologies. Patients with high levels of Biotin oral intake (i.e >5mg/day) may have falsely decreased Troponin levels. Samples collected within 8 hours of biotin intake may require additional information for diagnosis. Performed By: #### I DALE REYES, CDP #### [employer] [address] [place] [address] Signs Cleaner: Afshin Mansfield MD Troponin, High Sensitivity 15 ng/L 0 - 22 ng/L [facility] [employer] Comment on above: High Sensitivity Troponin values cannot be compared with other Troponin methodologies. Patients with high levels of Biotin oral intake (i.e >5mg/day) may have falsely decreased Troponin levels. Samples collected within 8 hours of biotin intake may require additional information for diagnosis. [facility] [employer] Troponin, High Sens 15 ng/L Normal 0-22 [facility] Comment on above: Result Comment: High Sensitivity Troponin values cannot be compared with other Troponin methodologies. Patients with high levels of Biotin oral intake (i.e >5mg/day) may have falsely decreased Troponin levels. Samples collected within 8 hours of biotin intake may require additional information for diagnosis. Performed By: #### I DALE REYES, CDP #### [employer] [address] [place] [address] Signs Cleaner: Afshin Mansifeld MD Troponin, High Sensitivity 15 ng/L 0 - 22 ng/L [facility] [employer] Comment on above: High Sensitivity Troponin values cannot be compared with other Troponin methodologies. Patients with high levels of Biotin oral intake (i.e >5mg/day) may have falsely decreased Troponin levels. Samples collected within 8 hours of biotin intake may require additional information for diagnosis. [facility] [employer] Basic Metabolic Panelon 11-21 Anion gap [Moles/Vol] 11 mmol/L 9 - 17 mmol/L [facility] [employer] Calcium [Mass/Vol] 8.1 mg/dL Low 8.6 - 10. 4 mg/dL [facility] Chloride [Moles/Vol] 102 mmol/L 98 - 10 7 mmol/L [facility] [employer] CO2 [Moles/Vol] 19 mmol/L Low 20 - 31 mmol/L [facility] Creatinine [Mass/Vol] 0.76 mg/dL 0.7 - 1.2 mg/dL [facility] [employer] GFR >60 60 - PI NF mL/min [facility] GFR Non- >60 60 - PINF mL/min [facility] GFR/1.73 sq M.predicted MDRD (S/P/Bld) [Vol rate/Area] [facility] Comment on above: Average GFR for 70 o r more years old: 75 mL/min/1.73sq m Chronic Kidney Disease: <60 mL/min/1.73sq m Kidney failure: <15 mL/min/1.73sq m eGFR calculated using average adult body mass. Additional eGFR calculator available at: http://www.Vinveli/Calxeda_crcl_2012.htm Glucose [Mass/Vol] 176 mg/dL High 70 - 99 mg/dL [facility] Interpretation and review of laboratory results Abnormal [facility] Potassium [Moles/Vol] 4.2 mmol/L 3.7 - 5.3 mmol/L [facility] Sodium [Moles/Vol] 132 mmol/L Low 135 - 144 mmol/L [facility] Urea nitrogen (BldV) [Mass/Vol] 16 mg/dL 8 - 23 mg/dL [facility] Basic Metabolic Profon 12-01 (cont.) Normal [facility] Comment on above: Result Comment: Aver age GFR for 70 or more years old: 75 mL/min/1.73sq m Chronic Kidney Disease: <60 mL/min/1.73sq m Kidney failure: <15 mL/min/1.73sq m eGFR calculated using average adult body mass. Additional eGFR calculator available at: http://www.Vinveli/Calxeda_crcl_2012.htm Performed By: #### C MARLYS, BMP #### [employer] [address] [place] [phone] Signs Cleaner: Afshin Mansfield MD Anion gap [Moles/Vol] 11 mmol/L Normal 9-[address] [facility] Comment on above: Performed By: #### C MARLYS BMP #### [facility] [address] [place] [phone] Signs Cleaner: Afshin Mansfield MD Calcium [Mass/Vol] 8.1 mg/dL Low 8.6-10.4 [facility] Comment on above: Performed By: #### C DP, BMP #### [facility] [address] [place] [phone] Signs Cleaner: Afshin Mansfield MD Chloride [Moles/Vol] 102 mmol/L Normal 98-107 [facility] Comment on above: Performed By: #### C DP, BMP #### [facility] [address] [place] [phone] Signs Cleaner: Afshin Mansfield MD CO2 [Moles/Vol] 19 mmol/L Low 20-31 [facility] Comment on above: Performed By: #### C DP, BMP #### [facility] [address] [place] [phone] Signs Cleaner: Afshin Mansfield MD Creatinine [Mass/Vol] 0.76 mg/dL Normal 0.70-1.[address] [facility] Comment on above: Performed By: #### C DP, BMP #### [address] [address] Signs Cleaner: Afshin Mansfield MD GFR, Amer >60 Normal >60 [facility] Comment on above: Performed By: #### C DP, BMP #### [facility] [address] [place] [phone] Signs Cleaner: Afshin Mansfield MD GFR,non Amer >60 Normal >60 [facility] Comment on above: Performed By: #### C DP, BMP #### [facility] [address] [place] [phone] Signs Cleaner: Afshin Mansfield MD Glucose [Mass/Vol] 176 mg/dL High 70-99 [facility] Comment on above: Performed By: #### C DP, BMP #### [facility] [address] [place] [address] Signs Cleaner: Afshin Mansfield MD Potassium [Moles/Vol] 4.2 mmol/L Normal 3.7-5.[address] [facility] Comment on above: Performed By: #### C DP, BMP #### [facility] [address] [place] [phone] Signs Cleaner: Afshin Mansfield MD Sodium [Moles/Vol] 132 mmol/L Low 135-144 [facility] Comment on above: Performed By: #### C DP, BMP #### [facility] [place] [address] Signs Cleaner: Afshin Mansfield MD Urea nitrogen [Mass/Vol] 16 mg/dL Normal 8-23 [facility] Comment on above: Performed By: #### C DP, BMP #### [facility] [place] [address] Signs Cleaner: Afshin Mansfield MD CBC with Auto Differentialon 12-01-2021 Absolute Eos # 0.00 [facility] Absolute Immature Granulocyte 0.00 [facility] Absolute Lymph # 1.35 [facility] Absolute [place] # 1.80 High [facility] Basophils (Bld) [#/Vol] 0.00 10*3/uL [facility] Basophils/100 WBC (Bld) 0 % 0 - 2 % [facility] Eosinophils/100 WBC (Bld) 0 % Low 1 - 4 % [facility] Hematocrit (Bld) [Volume fraction] 45.2 % 40.7 - 50.3 % [facility] Hemoglobin (Bld) [Mass/Vol] 15.6 g/dL 13 - 17 g/dL [facility] Immature granulocytes/100 WBC (Bld) 0 % 0 [facility] Interpretation and review of laboratory results Abnormal [facility] Lymphocytes/100 WBC (Bld) 9 % Low 24 - 44 % [facility] MCH (RBC) [Entitic mass] 30.5 pg 25.2 - 33.5 pg [facility] MCHC (RBC) [Mass/Vol] 34.5 g/dL 28.4 - 34.8 g/dL [facility] MCV (RBC) [Entitic vol] 88.5 fL 82.6 - 102.9 fL [facility] Monocytes/100 WBC (Bld) 12 % High 1 - 7 % [facility] Morphology Callum (Bld) [Interp] Normal [facility] NRBC Automated 0.0 0.0 per 100 WBC [facility] Platelet distribution width (Bld) [Ratio] 13.8 % 11.8 - 14.4 % [facility] Platelet mean volume (Bld) [Entitic vol] 9.6 fL 8.1 - 13.5 fL [facility] Platelets (Bld) [#/Vol] 235 10*3/uL [facility] RBC (Bld) [#/Vol] 5.11 10*6/uL 4.21 - 5.7 7 m/uL [facility] Segmented neutrophils/100 WBC (Bld) 79 % High 36 - 66 % [facility] Segs Absolute 11.85 High [facility] WBC (Bld) [#/Vol] 15.0 10*3/uL High [facility] CBC with Diffon 12-01-2021 Abs. Basophil 0.00 k/uL Normal 0.0-0.2 [facility] Comment on above: Performed By: #### C DP, BMP #### [employer] [address] [place] [phone] Signs Cleaner: Afshin Mansfield MD Abs.Imm.Granulocyte 0.00 k/uL Normal 0.00-0.30 [facility] Comment on above: Performed By: #### C DP, BMP #### [employer] [address] [place] [phone] Signs Cleaner: Afshin Mansfield MD Abs.Neutrophil (Seg) 11.85 k/uL High 1.8-7.7 [facility] Comment on above: Performed By: #### C DP, BMP #### [address] [address] Signs Cleaner: Afshin Mansfield MD Basophils/100 WBC (Bld) 0 % Normal 0-2 [facility] Comment on above: Performed By: #### C DP, BMP #### [address] [address] Signs Cleaner: Afshin Mansfield MD Eosinophils (Bld) [#/Vol] 0.00 10*3/uL Normal 0.0-0.4 [facility] Comment on above: Performed By: #### C DP, BMP #### [place] [id number] Signs Cleaner: Afshin Mansfield MD Eosinophils/100 WBC (Bld) 0 % Low 1-4 [facility] Comment on above: Performed By: #### C DP, BMP #### [address] [address] Signs Cleaner: Afshin Mansfield MD Immature granulocytes/100 WBC (Bld) 0 % Normal 0 [facility] Comment on above: Performed By: #### C DP, BMP #### [address] [address] Signs Cleaner: Afshin Mansfield MD Lymphocytes (Bld) [#/Vol] 1.35 10*3/uL Normal 1.0-4.8 [facility] Comment on above: Performed By: #### C DP, BMP #### [address] [address] Signs Cleaner: Afshin Mansfield MD Lymphocytes/100 WBC (Bld) 9 % Low 24-44 [facility] Comment on above: Performed By: #### C DP, BMP #### [address] [address] Signs Cleaner: Afshin Mansfield MD Monocytes (Bld) [#/Vol] 1.80 10*3/uL High 0.1-0.8 [facility] Comment on above: Performed By: #### C DP, BMP #### [address] [address] Signs Cleaner: Afshin Mansfield MD Monocytes/100 WBC (Bld) 12 % High 1-7 [facility] Comment on above: Performed By: #### C DP, BMP #### [address] [address] Signs Cleaner: Afshin Mansfield MD Morphology Callum (Bld) [Interp] Normal Normal [facility] Comment on above: Performed By: #### C DP, BMP #### [address] [address] Signs Cleaner: Afshin Mansfield MD Neutrophil (Seg) 79 % High 36-66 [facility] Comment on above: Performed By: #### C DP, BMP #### [address] [address] Signs Cleaner: Afshin Mansfield MD Erythrocyte distribution width (RBC) [Ratio] 13.8 % Normal 11.8-14.4 [facility] Comment on above: Performed By: #### C DP, BMP #### [facility] [address] [place] [address] Signs Cleaner: Afshin Mansfield MD Hematocrit (Bld) [Volume fraction] 45.2 % Normal 40.7-50.3 [facility] Comment on above: Performed By: #### C DP, BMP #### [address] [address] Signs Cleaner: Afshin Mansfield MD Hemoglobin (Bld) [Mass/Vol] 15.6 g/dL Normal 13.0-17.0 [facility] Comment on above: Performed By: #### C DP, BMP #### [address] [address] Signs Cleaner: Afshin Mansfield MD MCH (RBC) [Entitic mass] 30.5 pg Normal 25.2-33.5 [facility] Comment on above: Performed By: #### C DP, BMP #### [address] [address] Signs Cleaner: Afshin Mansfield MD MCHC (RBC) [Mass/Vol] 34.5 g/dL Normal 28.4-34.[address] [facility] Comment on above: Performed By: #### C DP, BMP #### [address] [address] Signs Cleaner: Afshin Mansfield MD MCV (RBC) [Entitic vol] 88.5 fL Normal 82.6-102.9 [facility] Comment on above: Performed By: #### C DP, BMP #### [address] [address] Signs Cleaner: Afshin Mansfield MD NRBC Automated 0.0 per 100 WBC Normal 0.0 [facility] Comment on above: Performed By: #### C DP, BMP #### [address] [address] Signs Cleaner: Afshin Mansfield MD Platelet mean volume (Bld) [Entitic vol] 9.6 fL Normal 8.1-13.5 [facility] Comment on above: Performed By: #### C DP, BMP #### [address] [address] Signs Cleaner: Afshin Mansfield MD Platelets (Bld) [#/Vol] 235 10*3/uL Normal 138-453 [facility] Comment on above: Performed By: #### C DP, BMP #### [facility] [address] [place] [address] Signs Cleaner: Afshin Mansfield MD RBC (Bld) [#/Vol] 5.11 10*6/uL Normal 4.21-5.77 [facility] Comment on above: Performed By: #### C DP, BMP #### [facility] [address] [place] [address] Signs Cleaner: Afshin Mansfield MD WBC (Bld) [#/Vol] 15.0 10*3/uL High 3.5-11.3 [facility] Comment on above: Performed By: #### C DP, BMP #### [facility] [address] [place] [address] Signs Cleaner: Afshin Mansfield MD ECHO Complete 2D W Doppler W Coloron 12-01-2021 Transthoracic Echocardiography Report (TTE) Patient Name EDGAR Date of Study 11/30/2021 SHAHRZAD Date of 1945 Gender Male Age 76 year(s) Race Room Number 0122 Height: 73 inch, 185.42 cm Corporate ID [id number] Weight: 207 pounds, 93.9 kg # Patient Acct [id number] BSA: 2.18 m^2 BMI: 27.31 # kg/m^2 MR # [id number] [employer] Rosmery Walsh Interpreting Physician Vicki Rob Fellow Referring Nurse Practitioner Interpreting Referring Physician Yolie Cabrera Fellow Type of Study TTE procedure:2D Echocardiogram, M-Mode, Doppler, Color Doppler, Bubble Study. Procedure Date Date: 11/30/2021 Start: 02:35 PM Study Location: [facility] Technical Quality: Adequate visualization Indications:Stroke. History [...] Wall E' velocity:0.12 m/s Lateral Wall E/E':7.5 PN STV Vicki Goldberg MD - 12/01/2021 Transthoracic Echocardiography Report (TTE) Patient Name EDGAR Date of Study 11/30/2021 SHAHRZAD Date of 1945 Gender Male Age 76 year(s) Race Room Number 0122 Height: 73 inch, 185.42 cm Corporate ID [id number] Weight: 207 pounds, 93.9 kg # Patient Acct [id number] BSA: 2.18 m^2 BMI: 27.31 # kg/m^2 MR # [id number] [employer] Rosmery Walsh Interpreting Physician Vicki Rob Fellow Referring Nurse Practitioner Interpreting Referring Physician Yolie Cabrera Type of Study TTE procedure:2D Echocardiogram, M-Mode, Doppler, Color Doppler, Bubble Study. Procedure Date Date: 11/30/2021 Start: 02:35 PM Study Location: [facility] Technical Quality: Adequate visualization Indications:Stroke. History [...] Wall E' velocity:0.12 m/s Lateral Wall E/E':7.5 [facility] Work Phone: [facility] Work Phone: POC Glucose Fingerstickon Glucose [Mass/Vol] 132 mg/dL High 75 - 110 mg/dL [facility] Interpretation and review of laboratory results Abnormal [facility] Glucose [Mass/Vol] 129 mg/dL High 75 - 110 mg/dL [facility] Interpretation and review of laboratory results Abnormal [facility] Glucose [Mass/Vol] 369 mg/dL High 75 - 110 mg/dL [facility] Interpretation and review of laboratory results Abnormal [facility] Glucose [Mass/Vol] 196 mg/dL High 75 - 110 mg/dL [facility] Interpretation and review of laboratory results Abnormal [facility] Glucose [Mass/Vol] 181 mg/dL High 75 - 110 mg/dL [facility] Interpretation and review of laboratory results Abnormal [facility] Urinalysis w/ Microon 2021 Bilirubin, SemiQt,Ur Negative Normal NEG [facility] Comment on above: Performed By: #### U [facility] #### [facility] [address] [place] [address] Signs Cleaner: Afshin Mansfield MD Blood, Urine LARGE Abnormal NEG [facility] Comment on above: Performed By: #### U AMIC #### [address] [address] Signs Cleaner: Afshin Mansfield MD Casts 2 TO 5 HYALINE Normal 0-8 [facility] Comment on above: Result Comment: Refe rence range defined for non-centrifuged specimen. Performed By: #### U AMIC #### [address] [address] Signs Cleaner: Afshin Mansfield MD Clarity (U) Clear Normal CLEAR [facility] Comment on above: Performed By: #### U AMIC #### [address] [address] Signs Cleaner: Afshin Mansfield MD Color (U) Yellow Normal YEL [facility] Comment on above: Performed By: #### U AMIC #### [address] [address] Signs Cleaner: Afshin Mansfield MD Epithelial cells LM Ql (Urine sed) 0 TO 2 Normal 0-5 [facility] Comment on above: Performed By: #### U AMIC #### [address] [address] Signs Cleaner: Afshin Mansfield MD Glucose Ql (U) Negative Normal NEG [facility] Comment on above: Performed By: #### U AMIC #### [address] [address] Signs Cleaner: Afshin Mansfield MD Ketones Ql (U) TRACE Abnormal NEG [facility] Comment on above: Performed By: #### U AMIC #### [address] [address] Signs Cleaner: Afshin Mansfield MD Leukocyte esterase Test strip Ql (U) Negative Normal NEG [facility] Comment on above: Performed By: #### U AMIC #### [address] [address] Signs Cleaner: Afshin Mansfield MD Nitrite,Ur Negative Normal NEG [facility] Comment on above: Performed By: #### U AMIC #### [address] [address] Signs Cleaner: Afshin Mansfield MD PH,Ur 5.5 Normal 5.0-8.0 [facility] Comment on above: Performed By: #### U AMIC #### [address] [address] Signs Cleaner: Afshin Mansfield MD Protein Ql (U) TRACE Abnormal NEG [facility] Comment on above: Performed By: #### U AMIC #### [address] [address] Signs Cleaner: Afshin Mansfield MD Spec. [place],Ur 1.031 High 1.005-1.030 [facility] Comment on above: Performed By: #### U AMIC #### [address] [address] Signs Cleaner: Afshin Mansfield MD Urine RBC's 20 TO 50 Normal 0-4 [facility] Comment on above: Result Comment: Refe rence range defined for non-centrifuged specimen. Performed By: #### U AMIC #### [address] [address] Signs Cleaner: Afshin Mansfield MD Urine WBC's 2 TO 5 Normal 0-5 [facility] Comment on above: Performed By: #### U AMIC #### [address] [address] Signs Cleaner: Afshin Mansfield MD Urobilinogen,Ur Normal Normal NORM [facility] Comment on above: Performed By: #### U [facility] #### [facility] [address] [place] [address] Signs Cleaner: Afshin Mansfield MD Urinalysis with Microscopico n 12-01-2021 Bilirubin Urine Negative NEGATIVE [facility] Casts UA 2 TO 5 HYALINE Reference range defined for non-centrifuged specimen. [facility] Color, UA Yellow Yellow [facility] Epithelial Cells UA 0 TO 2 [facility] Glucose, Ur Negative NEGATIVE [facility] Interpretation and review of laboratory results Abnormal [facility] Ketones Ql (U) TRACE Abnormal NEGATIVE [facility] Leukocyte esterase Test strip Ql (U) Negative NEGATIVE [facility] Nitrite, Urine Negative NEGATIVE [facility] pH, UA 5.5 5 - 8 [facility] Protein, UA TRACE Abnormal NEGATIVE [facility] RBC, UA 20 TO 50 [facility] Comment on above: Reference range defi alisha for non-centrifuged specimen. Specific [place], UA 1.031 High 1.005 - 1.03 [facility]ES N [facility] Turbidity UA Clear Clear [facility] Urine Hgb LARGE Abnormal NEGATIVE [facility] Urobilinogen, Urine Normal Normal [facility] WBC, UA 2 TO 5 [facility] Basic Metabolic Panelon - Anion gap [Moles/Vol] 11 mmol/L 9 - 17 mmol/L [facility] Calcium [Mass/Vol] 7.7 mg/dL Low 8.6 - 10. 4 mg/dL [facility] Chloride [Moles/Vol] 102 mmol/L 98 - 10 7 mmol/L [facility] CO2 [Moles/Vol] 21 mmol/L 20 - 31 mmol/L [facility] Creatinine [Mass/Vol] 0.79 mg/dL 0.7 - 1.2 mg/dL [facility] GFR >60 60 - PI NF mL/min [facility] GFR Non- >60 60 - PINF mL/min [facility] GFR/1.73 sq M.predicted MDRD (S/P/Bld) [Vol rate/Area] [facility] Comment on above: Average GFR for 70 o r more years old: 75 mL/min/1.73sq m Chronic Kidney Disease: <60 mL/min/1.73sq m Kidney failure: <15 mL/min/1.73sq m eGFR calculated using average adult body mass. Additional eGFR calculator available at: http://www.Vinveli/Calxeda_crcl_2012.htm Glucose [Mass/Vol] 196 mg/dL High 70 - 99 mg/dL [facility] Interpretation and review of laboratory results Abnormal [facility] Potassium [Moles/Vol] 4.5 mmol/L 3.7 - 5.3 mmol/L [facility] Sodium [Moles/Vol] 134 mmol/L Low 135 - 144 mmol/L [facility] Urea nitrogen (BldV) [Mass/Vol] 17 mg/dL 8 - 23 mg/dL [facility] Basic Metabolic Profon 11-30 Glucose [Mass/Vol] 196 mg/dL High 70-99 [facility] Comment on above: Performed By: #### C DARRICK GLYHGB, BMP #### [employer] [address] [place], [place] [id number] Signs Cleaner: Afshin Mansfield MD (cont.) [facility] Comment on above: Result Comment: Aver age GFR for 70 or more years old: 75 mL/min/1.73sq m Chronic Kidney Disease: <60 mL/min/1.73sq m Kidney failure: <15 mL/min/1.73sq m eGFR calculated using average adult body mass. Additional eGFR calculator available at: http://www.Vinveli/Calxeda_crcl_2011.htm Performed By: #### C DARRICK GLYHGB, BMP #### [employer] [address] [place] [address] Signs Cleaner: Afshin Mansfield MD Anion gap [Moles/Vol] 11 mmol/L Normal 9-[address] [facility] Comment on above: Performed By: #### C BC, GLYHGB, BMP #### [facility] [address] [place] [address] Signs Cleaner: Afshin Mansfield MD Calcium [Mass/Vol] 7.7 mg/dL Low 8.6-10.4 [facility] Comment on above: Performed By: #### C BC, GLYHGB, BMP #### [facility] [address] [place] [address] Signs Cleaner: Afshin Mansfield MD Chloride [Moles/Vol] 102 mmol/L Normal 98-107 [facility] Comment on above: Performed By: #### C BC, GLYHGB, BMP #### [facility] [address] [place] [address] Signs Cleaner: Afshin Mansfield MD CO2 [Moles/Vol] 21 mmol/L Normal 20-31 [facility] Comment on above: Performed By: #### C BC, GLYHGB, BMP #### [facility] [address] [place] [address] Signs Cleaner: Afshin Mansfield MD Creatinine [Mass/Vol] 0.79 mg/dL Normal 0.70-1.[address] [facility] Comment on above: Performed By: #### C BC, GLYHGB, BMP #### [employer] [address] [place] [address] Signs Cleaner: Afshin Mansfield MD GFR, Amer >60 Normal >60 [facility] Comment on above: Performed By: #### C BC, GLYHGB, BMP #### [facility] [address] [place] [address] Signs Cleaner: Afshin Mansfield MD GFR,non Amer >60 Normal >60 [facility] Comment on above: Performed By: #### C BC, GLYHGB, BMP #### [facility] [address] [place] [address] Signs Cleaner: Afshin Mansfield MD Potassium [Moles/Vol] 4.5 mmol/L Normal 3.7-5.[address] [facility] Comment on above: Performed By: #### C BC, GLYHGB, BMP #### [facility] [address] [place] [address] Signs Cleaner: Afshin Mansfield MD Sodium [Moles/Vol] 134 mmol/L Low 135-144 [facility] Comment on above: Performed By: #### C BC, GLYHGB, BMP #### [facility] [address] [place] [address] Signs Cleaner: Afshin Mansfield MD Urea nitrogen [Mass/Vol] 17 mg/dL Normal 8-23 [facility] Comment on above: Performed By: #### C BC, GLYHGB, BMP #### [facility] [address] [place] [address] Signs Cleaner: Afshin Mansfield MD CBC with Auto Differentialon 11-30-2021 Absolute Eos # [facility] Absolute Immature Granulocyte 0.12 [facility] Absolute Lymph # 1.09 Low [facility] Absolute [place] # 1.40 High [facility] Basophils Absolute [facility] Basophils/100 WBC (Bld) 0 % 0 - 2 % [facility] Eosinophils/100 WBC (Bld) 0 % Low 1 - 4 % [facility] Hematocrit (Bld) [Volume fraction] 41.7 % 40.7 - 50.3 % [facility] Hemoglobin (Bld) [Mass/Vol] 13.9 g/dL 13 - 17 g/dL [facility] Immature granulocytes/100 WBC (Bld) 1 % High 0 [facility] Interpretation and review of laboratory results Abnormal [facility] Lymphocytes/100 WBC (Bld) 8 % Low 24 - 43 % [facility] MCH (RBC) [Entitic mass] 29.6 pg 25.2 - 33.5 pg [facility] MCHC (RBC) [Mass/Vol] 33.3 g/dL 28.4 - 34.8 g/dL [facility] MCV (RBC) [Entitic vol] 88.7 fL 82.6 - 102.9 fL [facility] Monocytes/100 WBC (Bld) 10 % 3 - 12 % [facility] NRBC Automated 0.0 0.0 per 100 WBC [facility] Platelet distribution width (Bld) [Ratio] 14.0 % 11.8 - 14.4 % [facility] Platelet mean volume (Bld) [Entitic vol] 10.2 fL 8.1 - 13.5 fL [facility] Platelets (Bld) [#/Vol] 230 10*3/uL [facility] RBC (Bld) [#/Vol] 4.70 10*6/uL 4.21 - 5.7 7 m/uL [facility] Segmented neutrophils/100 WBC (Bld) 81 % High 36 - 65 % [facility] Segs Absolute 11.07 High [facility] WBC (Bld) [#/Vol] 13.7 10*3/uL High [facility] CBC with Diffon 11-30-2021 Abs. Basophil <0.03 Normal 0.00-0.20 [facility] Comment on above: Performed By: #### C DARRICK GLYCUAUHTEMOCB, BMP #### [employer] [facility] [place] [address] Signs Cleaner: Afshin Mansfield MD Abs. Eosinophil <0.03 Normal 0.00-0.44 [facility] Comment on above: Performed By: #### C BC, GLYHGB, BMP #### [employer] [address] [place] [address] Signs Cleaner: Afshin Mansfield MD Abs.Imm.Granulocyte 0.12 k/uL Normal 0.00-0.30 [facility] Comment on above: Performed By: #### C BC, GLYHGB, BMP #### [facility] [address] [place] [phone] Signs Cleaner: Afshin Mansfield MD Abs.Neutrophil (Seg) 11.07 k/uL High 1.50-8.10 [facility] Comment on above: Performed By: #### C BC, GLYHGB, BMP #### [facility] [address] [place] [address] Signs Cleaner: Afshin Mansfield MD Basophils/100 WBC (Bld) 0 % Normal 0-2 [facility] Comment on above: Performed By: #### C BC, GLYHGB, BMP #### [facility] [address] [place] [address] Signs Cleaner: Afshin Mansfield MD Eosinophils/100 WBC (Bld) 0 % Low 1-4 [facility] Comment on above: Performed By: #### C BC, GLYHGB, BMP #### [facility] [address] [place] [address] Signs Cleaner: Afshin Mansfield MD Erythrocyte distribution width (RBC) [Ratio] 14.0 % Normal 11.8-14.4 [facility] Comment on above: Performed By: #### C BC, GLYHGB, BMP #### [facility] [address] [place] [phone] Signs Cleaner: Afshin Mansfield MD Hematocrit (Bld) [Volume fraction] 41.7 % Normal 40.7-50.3 [facility] Comment on above: Performed By: #### C BC, GLYHGB, BMP #### [facility] [address] [place] [address] Signs Cleaner: Afshin Mansfield MD Hemoglobin (Bld) [Mass/Vol] 13.9 g/dL Normal 13.0-17.0 [facility] Comment on above: Performed By: #### C BC, GLYHGB, BMP #### [facility] [address] [place] [address] Signs Cleaner: Afshin Mansfield MD Immature granulocytes/100 WBC (Bld) 1 % High 0 [facility] Comment on above: Performed By: #### C BC, GLYHGB, BMP #### [address] [address] Signs Cleaner: Afshin Mansfield MD Lymphocytes (Bld) [#/Vol] 1.09 10*3/uL Low 1.10-3.70 [facility] Comment on above: Performed By: #### C BC, GLYHGB, BMP #### [facility] [address] [place] [address] Signs Cleaner: Afshin Mansfield MD Lymphocytes/100 WBC (Bld) 8 % Low 24-43 [facility] Comment on above: Performed By: #### C BC, GLYHGB, BMP #### [facility] [address] [place] [address] Signs Cleaner: Afshin Mansfield MD MCH (RBC) [Entitic mass] 29.6 pg Normal 25.2-33.5 [facility] Comment on above: Performed By: #### C BC, GLYHGB, BMP #### [facility] [address] [place] [address] Signs Cleaner: Afshin Mansfield MD MCHC (RBC) [Mass/Vol] 33.3 g/dL Normal 28.4-34.[address] [facility] Comment on above: Performed By: #### C BC, GLYHGB, BMP #### [facility] [address] [place] [address] Signs Cleaner: Afshin Mansfield MD MCV (RBC) [Entitic vol] 88.7 fL Normal 82.6-102.9 [facility] Comment on above: Performed By: #### C BC, GLYHGB, BMP #### [facility] [address] [place] [address] Signs Cleaner: Afshin Mansfield MD Monocytes (Bld) [#/Vol] 1.40 10*3/uL High 0.10-1.20 [facility] Comment on above: Performed By: #### C BC, GLYHGB, BMP #### [facility] [address] [place] [address] Signs Cleaner: Afshin Mansfield MD Monocytes/100 WBC (Bld) 10 % Normal 3-12 [facility] Comment on above: Performed By: #### C BC, GLYHGB, BMP #### [facility] [address] [place] [address] Signs Cleaner: Afshin Mansfield MD Neutrophil (Seg) 81 % High 36-65 [facility] Comment on above: Performed By: #### C BC, GLYHGB, BMP #### [facility] [address] [place] [address] Signs Cleaner: Afshin Mansfield MD NRBC Automated 0.0 per 100 WBC Normal 0.0 [facility] Comment on above: Performed By: #### C BC, GLYHGB, BMP #### [facility] [address] [place] [phone] Signs Cleaner: Afshin Mansfield MD Platelet mean volume (Bld) [Entitic vol] 10.2 fL Normal 8.1-13.5 [facility] Comment on above: Performed By: #### C BC, GLYHGB, BMP #### [facility] [address] [place] [phone] Signs Cleaner: Afshin Mansfield MD Platelets (Bld) [#/Vol] 230 10*3/uL Normal 138-453 [facility] Comment on above: Performed By: #### C BC, GLYHGB, BMP #### [facility] [address] [place] [address] Signs Cleaner: Afshin Mansfield MD RBC (Bld) [#/Vol] 4.70 10*6/uL Normal 4.21-5.77 [facility] Comment on above: Performed By: #### C BC GLYHGB, BMP #### [facility] [address] [place] [address] Signs Cleaner: Afshin Mansfield MD WBC (Bld) [#/Vol] 13.7 10*3/uL High 3.5-11.3 [facility] Comment on above: Performed By: #### C BC, GLYHGB, BMP #### [facility] [address] [place] [address] Signs Cleaner: Afshin Mansfield MD EKG 12 LeadOrdered By: Constance Rob on 11-30-2021 Atrial Rate 65 BPM [employer] Phone: P [place] 77 degrees [employer] Phone: P-R Interval 172 ms [employer] Phone: Q-T Interval 462 ms [employer] Phone: QRS Duration 84 ms [employer] Phone: QTc Calculation (Bazett) 480 ms [employer] Phone: R [place] 27 degrees [employer] Phone: T [place] 53 degrees [employer] Phone: Ventricular Rate 65 BPM [facility] [employer] [employer] Phone: [employer] Phone: EKG 12 Leadon 11-30-2021 Normal sinus rhythm Low voltage QRS Inferior infarct , age undetermined Abnormal ECG No previous ECGs available [facility] Vicki Dash MD - 11/30/2021 Normal sinus rhythm Low voltage QRS Inferior infarct , age undetermined Abnormal ECG No previous ECGs available Kony Work Phone: POC Glucose Fingerstickon Glucose [Mass/Vol] 160 mg/dL High 75 - 110 mg/dL [facility] [employer] Interpretation and review of laboratory results Abnormal [facility] [employer] [facility] [employer] Glucose [Mass/Vol] 181 mg/dL High 75 - 110 mg/dL [facility] Mant[facility] [employer] Interpretation and review of laboratory results Abnormal [facility] [employer] [facility] [employer] Glucose [Mass/Vol] 182 mg/dL High 75 - 110 mg/dL [facility] Interpretation and review of laboratory results Abnormal [facility] Basic Metabolic Panelon Anion gap [Moles/Vol] 12 mmol/L 9 - 17 mmol/L [facility] Calcium [Mass/Vol] 8.3 mg/dL Low 8.6 - 10. 4 mg/dL [facility] Chloride [Moles/Vol] 101 mmol/L 98 - 10 7 mmol/L [facility] CO2 [Moles/Vol] 20 mmol/L 20 - 31 mmol/L [facility] Creatinine [Mass/Vol] 0.89 mg/dL 0.7 - 1.2 mg/dL [facility] GFR >60 60 - PI NF mL/min [facility] [employer] GFR Non- >60 60 - PINF mL/min [facility] GFR/1.73 sq M.predicted MDRD (S/P/Bld) [Vol rate/Area] [facility] Comment on above: Average GFR for 70 o r more years old: 75 mL/min/1.73sq m Chronic Kidney Disease: <60 mL/min/1.73sq m Kidney failure: <15 mL/min/1.73sq m eGFR calculated using average adult body mass. Additional eGFR calculator available at: http://www.Wattpad.[employer]/multiple_crcl_2012.htm Glucose [Mass/Vol] 198 mg/dL High 70 - 99 mg/dL [facility] Interpretation and review of laboratory results Abnormal [facility] Potassium [Moles/Vol] 4.4 mmol/L 3.7 - 5.3 mmol/L [facility] Sodium [Moles/Vol] 133 mmol/L Low 135 - 144 mmol/L [facility] Urea nitrogen (BldV) [Mass/Vol] 14 mg/dL 8 - 23 mg/dL [facility] Basic Metabolic Profon 11-29 (cont.) Normal [facility] Comment on above: Result Comment: Aver age GFR for 70 or more years old: 75 mL/min/1.73sq m Chronic Kidney Disease: <60 mL/min/1.73sq m Kidney failure: <15 mL/min/1.73sq m eGFR calculated using average adult body mass. Additional eGFR calculator available at: http://www.Vinveli/multiple_crcl_2012.htm Performed By: #### I DALE REYES, CDP #### [facility] Hospital[facility] [address] [place] [address] [phone] Signs Cleaner: Afshin Mansfield MD Anion gap [Moles/Vol] 12 mmol/L Normal 9-[address] [facility] Comment on above: Performed By: #### DALE KINNEY, CDP #### [facility] Hospital[facility] [address] [place] [address] [phone] Signs Cleaner: Afshin Mansfield MD Calcium [Mass/Vol] 8.3 mg/dL Low 8.6-10.4 [facility] Comment on above: Performed By: #### I DALE REYES, CDP #### [facility] Hospital[facility] [address] [place] [address] [phone] Signs Cleaner: Afshin Mansfield MD Chloride [Moles/Vol] 101 mmol/L Normal 98-107 [facility] Comment on above: Performed By: #### I DALE REYES, CDP #### [facility] [address] [place] [address] [phone] Signs Cleaner: Afshin Mansfield MD CO2 [Moles/Vol] 20 mmol/L Normal 20-31 [facility] Comment on above: Performed By: #### I OCDALE BARBER, CDP #### [facility] [address] [place] [address] [phone] Signs Cleaner: Afshin Mansfield MD Creatinine [Mass/Vol] 0.89 mg/dL Normal 0.70-1.[address] [facility] Comment on above: Performed By: #### I OCSUNIL, BMP, CDP #### [facility] [address] [place] [address] [phone] Signs Cleaner: Afshin Mansfield MD GFR, Amer >60 Normal >60 [facility] Comment on above: Performed By: #### I OCSUNIL BMP, CDP #### [facility] [address] [place] [address] [phone] Signs Cleaner: Afshin Mansfield MD GFR,non Amer >60 Normal >60 [facility] Comment on above: Performed By: #### I OCSNUIL BMP, CDP #### [facility] [address] [place] [address] [phone] Signs Cleaner: Afshin Mansfield MD Glucose [Mass/Vol] 198 mg/dL High 70-99 [facility] Comment on above: Performed By: #### I OCSUNIL BMP, CDP #### [facility] [address] [place] [address] [phone] Signs Cleaner: Afshin Mansfield MD Potassium [Moles/Vol] 4.4 mmol/L Normal 3.7-5.[address] [facility] Comment on above: Performed By: #### I OCSUNIL BMP, CDP #### [facility] Hospital[facility] [address] [place] [address] [phone] Signs Cleaner: Afshin Mansfield MD Sodium [Moles/Vol] 133 mmol/L Low 135-144 [facility] Comment on above: Performed By: #### I OCALDALE, CDP #### [facility] [address] [place], [place] [phone] Signs Cleaner: Afshin Mansfield MD Urea nitrogen [Mass/Vol] 14 mg/dL Normal 8-23 [facility] Comment on above: Performed By: #### I OCAL, BMP, CDP #### [facility] [address] [place], [place] [phone] Signs Cleaner: Afshin Mansfield MD CBC with Auto Differentialon 11-29-2021 Absolute Eos # 0.00 [facility] Absolute Immature Granulocyte 0.19 [facility] Absolute Lymph # 0.57 Low [facility] Absolute [place] # 1.33 High [facility] Basophils (Bld) [#/Vol] 0.00 10*3/uL [facility] Basophils/100 WBC (Bld) 0 % 0 - 2 % [facility] Eosinophils/100 WBC (Bld) 0 % Low 1 - 4 % [facility] Hematocrit (Bld) [Volume fraction] 40.4 % Low 40.7 - 50.3 % [facility] Hemoglobin (Bld) [Mass/Vol] 13.6 g/dL 13 - 17 g/dL [facility] Immature granulocytes/100 WBC (Bld) 1 % High 0 [facility] Interpretation and review of laboratory results Abnormal [facility] Lymphocytes/100 WBC (Bld) 3 % Low 24 - 43 % [facility] MCH (RBC) [Entitic mass] 30.5 pg 25.2 - 33.5 pg [facility] MCHC (RBC) [Mass/Vol] 33.7 g/dL 28.4 - 34.8 g/dL [facility] MCV (RBC) [Entitic vol] 90.6 fL 82.6 - 102.9 fL [facility] Monocytes/100 WBC (Bld) 7 % 3 - 12 % [facility] Morphology Callum (Bld) [Interp] Normal [facility] NRBC Automated 0.0 0.0 per 100 WBC [facility] Platelet distribution width (Bld) [Ratio] 13.7 % 11.8 - 14.4 % [facility] Platelet mean volume (Bld) [Entitic vol] 9.9 fL 8.1 - 13.5 fL [facility] Platelets (Bld) [#/Vol] 250 10*3/uL [facility] RBC (Bld) [#/Vol] 4.46 10*6/uL 4.21 - 5.7 7 m/uL [facility] Segmented neutrophils/100 WBC (Bld) 89 % High 36 - 65 % [facility] Segs Absolute 16.91 High [facility] WBC (Bld) [#/Vol] 19.0 10*3/uL High [facility] CBC with Diffon 11-29-2021 Abs. Basophil 0.00 k/uL Normal 0.00-0.20 [facility] Comment on above: Performed By: #### DALE KINNEY, CDP #### [facility] [address] [place] [address] Signs Cleaner: Afshin Mansfield MD Abs.Imm.Granulocyte 0.19 k/uL Normal 0.00-0.30 [facility] Comment on above: Performed By: #### DALE KINNEY, CDP #### [facility] [address] [place] [address] [phone] Signs Cleaner: Afshin Mansfield MD Abs.Neutrophil (Seg) 16.91 k/uL High 1.50-8.10 [facility] Comment on above: Performed By: #### I DALE REYES, CDP #### [facility] [address] [place] [address] [phone] Signs Cleaner: Afshin Mansfield MD Basophils/100 WBC (Bld) 0 % Normal 0-2 [facility] Comment on above: Performed By: #### I DALE REYES, CDP #### [facility] [address] [place] [address] Signs Cleaner: Afshin Mansfield MD Eosinophils (Bld) [#/Vol] 0.00 10*3/uL Normal 0.00-0.44 [facility] Comment on above: Performed By: #### I OCAL, BMP, CDP #### [facility] Hospital[facility] [address] [place] [address] [phone] Signs Cleaner: Afshin Mansfield MD Eosinophils/100 WBC (Bld) 0 % Low 1-4 [facility] Comment on above: Performed By: #### I OCAL, BMP, CDP #### [facility] Hospital[facility] [address] [place] [address] [phone] Signs Cleaner: Afshin Mansfield MD Immature granulocytes/100 WBC (Bld) 1 % High 0 [facility] Comment on above: Performed By: #### I OCSUNIL, BMP, CDP #### [facility] [address] [place] [address] [phone] Signs Cleaner: Afshin Mansfield MD Lymphocytes (Bld) [#/Vol] 0.57 10*3/uL Low 1.10-3.70 [facility] Comment on above: Performed By: #### I OCAL, BMP, CDP #### [facility] [address] [place] [address] [phone] Signs Cleaner: Afshin Manfsield MD Lymphocytes/100 WBC (Bld) 3 % Low 24-43 [facility] Comment on above: Performed By: #### I OCAL, BMP, CDP #### [facility] [address] [place] [address] [phone] Signs Cleaner: Afshin Mansfield MD Monocytes (Bld) [#/Vol] 1.33 10*3/uL High 0.10-1.20 [facility] Comment on above: Performed By: #### I OCAL, BMP, CDP #### [employer] [address] [place] [address] [phone] Signs Cleaner: Afshin Mansfield MD Monocytes/100 WBC (Bld) 7 % Normal 3-12 [facility] Comment on above: Performed By: #### DALE KINNEY, CDP #### [facility] [employer] [address] [place] [address] [phone] Signs Cleaner: Afshin Mansfield MD Morphology Callum (Bld) [Interp] Normal Normal [facility] Comment on above: Performed By: #### I DALE REYES, CDP #### [facility] [address] [place] [address] [phone] Signs Cleaner: Afshin Mansfield MD Neutrophil (Seg) 89 % High 36-65 [facility] Comment on above: Performed By: #### DALE KINNEY, CDP #### [facility] [address] [place] [address] [phone] Signs Cleaner: Afshin Mansfield MD Erythrocyte distribution width (RBC) [Ratio] 13.7 % Normal 11.8-14.4 [facility] Comment on above: Performed By: #### DALE KINNEY, CDP #### [facility] [address] [place] [address] [phone] Signs Cleaner: Afshin Mansfield MD Hematocrit (Bld) [Volume fraction] 40.4 % Low 40.7-50.3 [facility] Comment on above: Performed By: #### DALE KINNEY, CDP #### [facility] [address] [place] [address] [phone] Signs Cleaner: Afshin Mansfield MD Hemoglobin (Bld) [Mass/Vol] 13.6 g/dL Normal 13.0-17.0 [facility] Comment on above: Performed By: #### I DALE REYES, CDP #### [facility] [address] [place] [address] [phone] Signs Cleaner: Afshin Mansfield MD MCH (RBC) [Entitic mass] 30.5 pg Normal 25.2-33.5 [facility] Comment on above: Performed By: #### I OCDALE BARBER, CDP #### [address] [phone] Signs Cleaner: Afshin Mansfield MD MCHC (RBC) [Mass/Vol] 33.7 g/dL Normal 28.4-34.[address] [facility] Comment on above: Performed By: #### I OCDALE BARBER, CDP #### [address] [phone] Signs Cleaner: Afshin Mansfield MD MCV (RBC) [Entitic vol] 90.6 fL Normal 82.6-102.9 [facility] Comment on above: Performed By: #### I DALE REYES, CDP #### [address] [phone] Signs Cleaner: Afshin Mansfield MD NRBC Automated 0.0 per 100 WBC Normal 0.0 [facility] Comment on above: Performed By: #### I DALE REYES, CDP #### [address] [phone] Signs Cleaner: Afshin Mansfield MD Platelet mean volume (Bld) [Entitic vol] 9.9 fL Normal 8.1-13.5 [facility] Comment on above: Performed By: #### I DALE REYES, CDP #### [address] [phone] Signs Cleaner: Afshin Mansfield MD Platelets (Bld) [#/Vol] 250 10*3/uL Normal 138-453 [facility] Comment on above: Performed By: #### I DALE REYES, CDP #### [address] [phone] Signs Cleaner: Afshin Mansfield MD RBC (Bld) [#/Vol] 4.46 10*6/uL Normal 4.21-5.77 [facility] Comment on above: Performed By: #### I DALE REYES, CDP #### [facility] [address] [place] [address] Signs Cleaner: Afshin Mansfield MD WBC (Bld) [#/Vol] 19.0 10*3/uL High 3.5-11.3 [facility] Comment on above: Performed By: #### I DALE REYES, CDP #### [employer] [address] [place] [address] Signs Cleaner: Afshin Mansfield MD CT HEAD WO [...] Anders Shepard MD 11/29/21 Final result Normal [facility] 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 [facility] Anders Anton MD - 11/29/2021 EXAMINATION: CT [...] shift. Similar punctate focus of presumed hemorrhage. [facility] Mant[facility] Work Phone: Kony Work Phone: Radiology Study observation (narrative) Kony Work Phone: Calcium, Ionicon 11-29-2021 Calcium [Moles/Vol] 1.07 mmol/L Low 1.13-1.33 [facility] Comment on above: Performed By: #### I DALE REYES, CDP #### [facility] [address] [place], [place] [phone] Signs Cleaner: Afshin Mansfield MD Calcium, Ionizedon Calcium, Ionized 1.07 mmol/L Low 1.13 - 1.33 mmol/L [facility] [employer] Interpretation and review of laboratory results Abnormal [facility]ITALRep Magnesiumon 11-29-2021 Magnesium [Mass/Vol] 2.6 mg/dL Normal 1.6-2.6 [facility] Comment on above: Performed By: #### DALE KINNEY, CDP #### [facility] [address] [place] [address] Signs Cleaner: Afshin Mansfield MD Magnesium [Mass/Vol] 2.6 mg/dL 1.6 - 2 .6 mg/dL [facility]ITALMe[facility] [employer] POC Glucose Fingerstickon Glucose [Mass/Vol] 199 mg/dL High 75 - 110 mg/dL [facility] [employer] Interpretation and review of laboratory results Abnormal [facility] Glucose [Mass/Vol] 211 mg/dL High 75 - 110 mg/dL [facility] Interpretation and review of laboratory results Abnormal [facility] Glucose [Mass/Vol] 213 mg/dL High 75 - 110 mg/dL [facility] Interpretation and review of laboratory results Abnormal [facility] Glucose [Mass/Vol] 195 mg/dL High 75 - 110 mg/dL [facility] [employer] Interpretation and review of laboratory results Abnormal [facility] Mantra [facility]Me[facility] Glucose [Mass/Vol] 205 mg/dL High 75 - 110 mg/dL [facility] Interpretation and review of laboratory results Abnormal [facility] Basic Metabolic Profon 11-28 (cont.) Normal [facility] Comment on above: Result Comment: Aver age GFR for 70 or more years old: 75 mL/min/1.73sq m Chronic Kidney Disease: <60 mL/min/1.73sq m Kidney failure: <15 mL/min/1.73sq m eGFR calculated using average adult body mass. Additional eGFR calculator available at: http://www.Wattpad.Inoveight [employer]/multiple_crcl_2012.htm Performed By: #### C BC, GLYHGB, BMP #### [employer] [address] [place] [address] [phone] Signs Cleaner: Afshin Mansfield MD Anion gap [Moles/Vol] 15 mmol/L Normal 9-[address] [facility] Comment on above: Performed By: #### C BC, GLYHGB, BMP #### [employer] [address] [place] [address] [phone] Signs Cleaner: Afshin Mansfield MD Calcium [Mass/Vol] 8.1 mg/dL Low 8.6-10.4 [facility] Comment on above: Performed By: #### C BC, GLYHGB, BMP #### [employer] [address] [place] [address] [phone] Signs Cleaner: Afshin Mansfield MD Chloride [Moles/Vol] 95 mmol/L Low 98-107 [facility] Comment on above: Performed By: #### C BC, GLYHGB, BMP #### [employer] [address] [place] [address] [phone] Signs Cleaner: Afshin Mansfield MD CO2 [Moles/Vol] 21 mmol/L Normal 20-31 [facility] Comment on above: Performed By: #### C BC, GLYHGB, BMP #### [employer] [address] [place] [address] [phone] Signs Cleaner: Afshin Mansfield MD Creatinine [Mass/Vol] 0.94 mg/dL Normal 0.70-1.[address] [facility] Comment on above: Performed By: #### C BC, GLYHGB, BMP #### [facility] [address] [place] [address] [phone] Signs Cleaner: Afshin Mansfield MD GFR, Amer >60 Normal >60 [facility] Comment on above: Performed By: #### C BC, GLYHGB, BMP #### [facility] [address] [place] [address] [phone] Signs Cleaner: Afshin Mansfield MD GFR,non Amer >60 Normal >60 [facility] Comment on above: Performed By: #### C BC, GLYHGB, BMP #### [facility] [address] [place] [address] [phone] Signs Cleaner: Afshin Mansfield MD Glucose [Mass/Vol] 230 mg/dL High 70-99 [facility] Comment on above: Performed By: #### C BC, GLYHGB, BMP #### [facility] [address] [place] [address] [phone] Signs Cleaner: Afshin Mansfield MD Potassium [Moles/Vol] 4.2 mmol/L Normal 3.7-5.[address] [facility] Comment on above: Performed By: #### C BC, GLYHGB, BMP #### [facility] [address] [place] [address] [phone] Signs Cleaner: Afshin Mansfield MD Sodium [Moles/Vol] 131 mmol/L Low 135-144 [facility] Comment on above: Performed By: #### C BC, GLYHGB, BMP #### [facility] [address] [place] [address] [phone] Signs Cleaner: Afshin Mansfield MD Urea nitrogen [Mass/Vol] 10 mg/dL Normal 8-23 [facility] Comment on above: Performed By: #### C BC, GLYHGB, BMP #### [facility] [address] [place] [phone] Signs Cleaner: Afshin Mansfield MD Basic metabolic panelon Anion gap [Moles/Vol] 15 mmol/L 9 - 17 mmol/L [facility] Calcium [Mass/Vol] 8.1 mg/dL Low 8.6 - 10. 4 mg/dL [facility] [employer] Chloride [Moles/Vol] 95 mmol/L Low 98 - 10 7 mmol/L [facility] [employer] CO2 [Moles/Vol] 21 mmol/L 20 - 31 mmol/L [facility] Creatinine [Mass/Vol] 0.94 mg/dL 0.7 - 1.2 mg/dL [facility] GFR >60 60 - PI NF mL/min [facility] GFR Non- >60 60 - PINF mL/min [facility] GFR/1.73 sq M.predicted MDRD (S/P/Bld) [Vol rate/Area] [facility] Comment on above: Average GFR for 70 o r more years old: 75 mL/min/1.73sq m Chronic Kidney Disease: <60 mL/min/1.73sq m Kidney failure: <15 mL/min/1.73sq m eGFR calculated using average adult body mass. Additional eGFR calculator available at: http://www.Wattpad.[employer]/multiple_crcl_2011.htm Glucose [Mass/Vol] 230 mg/dL High 70 - 99 mg/dL [facility] Interpretation and review of laboratory results Abnormal [facility] Potassium [Moles/Vol] 4.2 mmol/L 3.7 - 5.3 mmol/L [facility] Sodium [Moles/Vol] 131 mmol/L Low 135 - 144 mmol/L [facility] Urea nitrogen (BldV) [Mass/Vol] 10 mg/dL 8 - 23 mg/dL [facility] C-Reactive Proteinon CRP [Mass/Vol] 13.7 mg/L High 0.0-5.0 [facility] Comment on above: Performed By: #### I DALE REYES, CDP #### [employer] [address] [place] [phone] Signs Cleaner: Afshin Mansfield MD CRP [Mass/Vol] 13.7 mg/L High 0 - 5 mg/L [facility] Interpretation and review of laboratory results Abnormal [facility] CBCon 11-28-2021 Erythrocyte distribution width (RBC) [Ratio] 13.6 % Normal 11.8-14.4 [facility] Comment on above: Performed By: #### C LÓPEZ HOLLINGSWORTHHGLakshmi, BMP #### [facility] [address] [place] [address] [phone] Signs Cleaner: Afshin Mansfield MD Hematocrit (Bld) [Volume fraction] 40.1 % Low 40.7-50.3 [facility] Comment on above: Performed By: #### C DARRICK GLYHGB, BMP #### [employer] [address] [place] [phone] Signs Cleaner: Afshin Mansfield MD Hemoglobin (Bld) [Mass/Vol] 13.9 g/dL Normal 13.0-17.0 [facility] Comment on above: Performed By: #### C BC, GLYHGB, BMP #### [employer] [address] [place] [phone] Signs Cleaner: Afshin Mansfield MD MCH (RBC) [Entitic mass] 30.2 pg Normal 25.2-33.5 [facility] Comment on above: Performed By: #### C BC, GLYHGB, BMP #### [employer] [address] [place] [phone] Signs Cleaner: Afshin Mansfield MD MCHC (RBC) [Mass/Vol] 34.7 g/dL Normal 28.4-34.8 [facility] Comment on above: Performed By: #### C BC, GLYHGB, BMP #### [address] [phone] Signs Cleaner: Afshin Mansfield MD MCV (RBC) [Entitic vol] 87.0 fL Normal 82.6-102.9 [facility] Comment on above: Performed By: #### C BC, GLYHGB, BMP #### [facility] [address] [place] [phone] Signs Cleaner: Afshin Mansfield MD NRBC Automated 0.0 per 100 WBC Normal 0.0 [facility] Comment on above: Performed By: #### C BC, GLYHGB, BMP #### [facility] [address] [place] [address] [phone] Signs Cleaner: Afshin Mansfield MD Platelet mean volume (Bld) [Entitic vol] 10.1 fL Normal 8.1-13.5 [facility] Comment on above: Performed By: #### C BC, GLYHGB, BMP #### [address] [phone] Signs Cleaner: Afshin Mansfield MD Platelets (Bld) [#/Vol] 222 10*3/uL Normal 138-453 [facility] Comment on above: Performed By: #### C BC, GLYHGB, BMP #### [address] [phone] Signs Cleaner: Afshin Mansfield MD RBC (Bld) [#/Vol] 4.61 10*6/uL Normal 4.21-5.77 [facility] Comment on above: Performed By: #### C BC, GLYHGB, BMP #### [address] [id number] Signs Cleaner: Afshin Mansfield MD WBC (Bld) [#/Vol] 13.5 10*3/uL High 3.5-11.3 [facility] Comment on above: Performed By: #### C BC, GLYHGB, BMP #### [facility] [address] [place] [address] Signs Cleaner: Afshin Mansfield MD Hematocrit (Bld) [Volume fraction] 40.1 % Low 40.7 - 50.3 % [facility] Hemoglobin (Bld) [Mass/Vol] 13.9 g/dL 13 - 17 g/dL [facility] Interpretation and review of laboratory results Abnormal [facility] MCH (RBC) [Entitic mass] 30.2 pg 25.2 - 33.5 pg [facility] MCHC (RBC) [Mass/Vol] 34.7 g/dL 28.4 - 34.8 g/dL [facility] MCV (RBC) [Entitic vol] 87.0 fL 82.6 - 102.9 fL [facility] NRBC Automated 0.0 0.0 per 100 WBC [facility] Platelet distribution width (Bld) [Ratio] 13.6 % 11.8 - 14.4 % [facility] Platelet mean volume (Bld) [Entitic vol] 10.1 fL 8.1 - 13.5 fL [facility] Platelets (Bld) [#/Vol] 222 10*3/uL [facility] RBC (Bld) [#/Vol] 4.61 10*6/uL 4.21 - 5.7 7 m/uL [facility] WBC (Bld) [#/Vol] 13.5 10*3/uL High [facility] CBC AUTO DIFFon 11-28-2021 BASO # 0.0 103/ul Normal 0.0-0.1 [facility] Comment on above: Performed By: #### H STROPN, CMP, CRP #### [facility] [address] [address] [address] Sea Pugh Basophils/100 WBC (Bld) 0.3 % Normal 0.2-2.0 [facility] Comment on above: Performed By: #### H STROPN, CMP, CRP #### [facility] [address] [place] [address] Dr. Sea Pugh EO # 0.1 103/ul Normal 0.0-0.7 [facility] Comment on above: Performed By: #### H STROPN, CMP, CRP #### [facility] [address] [place] [address] Dr. Sea Pugh Eosinophils/100 WBC (Bld) 0.8 % Critically low 0.9-7.0 [facility] Comment on above: Performed By: #### H STROPN, CMP, CRP #### [facility] [address] [place] [address] Dr. Sea Pugh Erythrocyte distribution width (RBC) [Ratio] 13.6 % Normal 11.0-15.0 [facility] Comment on above: Performed By: #### H STROPN, CMP, CRP #### [facility] [address] [place] [address] Dr. Sea Pugh Hematocrit (Bld) [Volume fraction] 41.0 % Critically low 42.0-54.0 [facility] Comment on above: Performed By: #### H STROPN, CMP, CRP #### [facility] [address] [place] [address] Dr. Sea Pugh Hemoglobin (Bld) [Mass/Vol] 14.0 g/dL Normal 14.0-18.0 [facility] Comment on above: Performed By: #### H STROPN, CMP, CRP #### [facility] [address] [place] [address] Dr. Sea Pugh IG # 0.04 10e3/ul Critically high 0.00-0.03 [facility] Comment on above: Performed By: #### H STROPN, CMP, CRP #### [facility] [address] [place] [address] Dr. Sea Pugh IG % 0.3 % Normal 0.0-0.5 [facility] Comment on above: Performed By: #### H STROPN, CMP, CRP #### [facility] [address] [place] [address] Dr. Sea Pugh LYMPH # 1.2 103/ul Normal 1.2-3.8 [facility] Comment on above: Performed By: #### H STROPN, CMP, CRP #### [facility] [address] [address] [address] Sea Pugh Lymphocytes/100 WBC (Bld) 9.7 % Critically low 20.5-60.0 [facility] Comment on above: Performed By: #### H STROPN, CMP, CRP #### [facility] [address] [place] [address] Dr. Sea Pugh MANUAL DIFF REQ NO Normal [facility] Comment on above: Performed By: #### H STROPN, CMP, CRP #### [facility] [address] [place] [address] Dr. Sea Pugh MCH (RBC) [Entitic mass] 29.9 pg Normal 25.9-34.0 [facility] Comment on above: Performed By: #### H STROPN, CMP, CRP #### [facility] [address] [place] [address] Dr. Sea Pugh MCHC (RBC) [Mass/Vol] 34.1 g/dL Normal 29.9-35.2 [facility] Comment on above: Performed By: #### H STROPN, CMP, CRP #### [facility] [address] [place] [address] Dr. Sea Pugh MCV (RBC) [Entitic vol] 87.6 fL Normal 80.0-94.0 [facility] Comment on above: Performed By: #### H STROPN, CMP, CRP #### [facility] [address] [place] [address] Dr. Sea Pugh MONO # 0.9 103/ul Critically high 0.3-0.8 [facility] Comment on above: Performed By: #### H STROPN, CMP, CRP #### [facility] [address] [place] [address] Dr. Sea Pugh Monocytes/100 WBC (Bld) 7.4 % Normal 1.7-12.0 [facility] Comment on above: Performed By: #### H STROPN, CMP, CRP #### [facility] [address] [address] [address] Sea Pugh NEUT # 10.3 103/ul Critically high 1.4-6.5 [facility] Comment on above: Performed By: #### H STROPN, CMP, CRP #### [facility] [address] [address] [address] Sea Pugh Neutrophils/100 WBC (Bld) 81.5 % Critically high 43.0-75.0 [facility] Comment on above: Performed By: #### H STROPN, CMP, CRP #### [facility] [address] [place] [address] Dr. Sea Pugh Platelet mean volume (Bld) [Entitic vol] 9.8 fL Normal 9.5-13.5 [facility] Comment on above: Performed By: #### H STROPN, CMP, CRP #### [facility] [address] [place] [address] Dr. Sea Pugh PLT 247 103/ul Normal 150-450 [facility] Comment on above: Performed By: #### H STROPN, CMP, CRP #### [facility] [address] [place] [address] Dr. Sea Pugh RBC 4.68 106/ul Critically low 4.70-6.10 [facility] Comment on above: Performed By: #### H STROPN, CMP, CRP #### [facility] [address] [place] [address] Dr. Sea Pugh WBC 12.6 103/ul Critically high 4.0-11.0 [facility] Comment on above: Performed By: #### H STROPN, CMP, CRP #### [facility] [address] [place] [address] Dr. Sea Pugh CRPon 11-28-2021 CRP 0.3 mg/dL Normal <=1.0 [facility] Comment on above: Performed By: #### H STROPN, CMP, CRP #### [facility] [address] [place] [address] HEAD WO CONon [...] by: VICENTA MARCH Date: 2021-11-28 00:11 Normal [facility] CT HEAD WO CONTRASTon 2021 CT HEAD [...] Adalberto Escobar MD 11/28/21 Final result Normal [facility] Radiology Study observation (narrative) MIRA AMEZCUA [facility] [employer] Work Phone: CTA HEAD NECK W CONTRASTon [...] Adalberto Escobar MD 11/28/21 Final result Normal [facility] CTA head neck with contrasto n 11-28-2021 Radiology Study observation (narrative) MIRA TOVARRADHA [facility] [employer] Work Phone: Hemoglobin A1Con 11-28-2021 Glucose [Mass/Vol] 186 mg/dL Normal [facility] Comment on above: Result Comment: The ADA and AACC recommend providing the estimated average glucose result to permit better patient understanding of their HBA1c result. Performed By: #### C BC, GLYHGB, BMP #### [employer] [facility] [place] [address] Signs Cleaner: Afshin Mansfield MD HbA1c (Bld) [Mass fraction] 8.1 % High 4.0-6.0 [facility] Comment on above: Performed By: #### C BC, GLYHGB, BMP #### [facility] [address] [place] [address] Signs Cleaner: Afshin Mansfield MD Hemoglobin A1con 11-28-2021 Glucose [Mass/Vol] 186 mg/dL [facility] [employer] Comment on above: The ADA and AACC rec ommend providing the estimated average glucose result to permit better patient understanding of their HBA1c result. HbA1c (Bld) [Mass fraction] 8.1 % High 4 - 6 % [employer] [facility] Interpretation and review of laboratory results Abnormal [facility] [employer] [facility] [employer] LACTATE/LACTIC ACIDon 2021 Lactate [Moles/Vol] 1.7 mmol/L Normal 0.4-1.9 [facility] Comment on above: Performed By: #### D DIM #### [facility] [address] [address] [address] Sea Pugh Lipid Panelon 11-28-2021 Cholesterol [Mass/Vol] 122 mg/dL NINF - 200 mg/dL [facility] Comment on above: Cholesterol Guidelines: <200 Desirable 200-240 Borderline >240 Undesirable Cholesterol in HDL [Mass/Vol] 34 mg/dL Low 40 - PINF mg/dL [facility] Comment on above: HDL Guidelines: <40 Undesirable 40-59 Borderline >59 Desirable Cholesterol in LDL [Mass/Vol] 74 mg/dL 0 - 130 mg/dL [facility] Comment on above: LDL Guidelines: <100 Desirable 100-129 Near to/above Desirable 130-159 Borderline >159 Undesirable Direct (measured) LDL and calculated LDL are not interchangeable tests. Cholesterol.total/Cho lesterol in HDL [Mass ratio] 3.6 {ratio} NINF - 5 [facility] Interpretation and review of laboratory results Abnormal [facility] Triglyceride [Mass/Vol] 71 mg/dL NINF - 150 mg/dL [facility] Comment on above: Triglyceride Guidelines: <150 Desirable 150-199 Borderline 200-499 High >499 Very high Based on AHA Guidelines for fasting triglyceride, December 2011. [employer] Lipid Profileon 11-28-2021 Cholesterol [Mass/Vol] 122 mg/dL Normal <200 [facility] Comment on above: Result Comment: Cholesterol Guidelines: <200 Desirable 200-240 Borderline >240 Undesirable Performed By: #### I DALE REYES, CDP #### [employer] [address] [place] [id number] Signs Cleaner: Afshin Mansfield MD Cholesterol in HDL [Mass/Vol] 34 mg/dL Low >40 [facility] Comment on above: Result Comment: HDL Guidelines: <40 Undesirable 40-59 Borderline >59 Desirable Performed By: #### I DALE REYES, CDP #### [employer] [address] [place] [id number] Signs Cleaner: Afshin Mansfield MD Cholesterol in LDL [Mass/Vol] 74 mg/dL Normal 0-130 [facility] Comment on above: Result Comment: LDL Guidelines: <100 Desirable 100-129 Near to/above Desirable 130-159 Borderline >159 Undesirable Direct (measured) LDL and calculated LDL are not interchangeable tests. Performed By: #### I DALE REYES, CDP #### [employer] [address] [place] [id number] Signs Cleaner: Afshin Mansfield MD Cholesterol.total/Cho lesterol in HDL [Mass ratio] 3.6 {ratio} Normal <5 [facility] Comment on above: Performed By: #### I DALE REYES, CDP #### [employer] [address] [place] [id number] Signs Cleaner: Afshin Mansfield MD Triglyceride [Mass/Vol] 71 mg/dL Normal <150 [facility] Comment on above: Result Comment: Triglyceride Guidelines: <150 Desirable 150-199 Borderline 200-499 High >499 Very high Based on AHA Guidelines for fasting triglyceride, December 2011. Performed By: #### I DALE REYES, CDP #### [employer] [address] [place] [phone] Signs Cleaner: Afshni Mansfield MD MRI BRAIN W WO CONTRASTon [...] Anders Shepard MD 11/28/21 Final result Normal [facility] Subacute ischemia involving the right parietal/temporal lobe with associated hemorrhagic/hemosider in staining. There is mild associated edema, mass effect, and minimal leftward midline shift. [facility] RIS CONSOLIDATED EXAMINATION: MRI OF THE BRAIN [...] The soft tissues demonstrate no acute abnormality. [facility] Anders Anton MD - 11/28/2021 EXAMINATION: MRI OF THE [...] mass effect, and minimal leftward midline shift. [employer] Work Phone: Radiology Study observation (narrative) [employer] Phone: MRI BRAIN W WO CONTRASTOrder ed By: Anders Shepard on 11-28-2021 [employer] Work Phone: Magnesiumon 11-28-2021 Magnesium [Mass/Vol] 1.5 mg/dL Low 1.6-2.6 [facility] Comment on above: Performed By: #### I AMY, DALE, CDP #### [employer] [address] [place] [address] Signs Cleaner: Afshin Mansfield MD Interpretation and review of laboratory results Abnormal [facility] Magnesium [Mass/Vol] 1.5 mg/dL Low 1.6 - 2 .6 mg/dL [facility] [employer] No Panel Informationon 11-28 1. Findings appear [...] to Dr. Velázquez on 11/28/2021 at 06:40. [facility] RIS CONSOLIDATED EXAMINATION: CT OF THE HEAD [...] venous sinus thrombosis on this non-dedicated study. [facility] RIS CONSOLIDATED Adalberto Escobar MD - 11/28/2021 [...] to Dr. Velázquez on 11/28/2021 at 06:40. [employer] Work Phone: No Panel InformationOrdered By: Adalberto Escobar on 11-28-2021 [facility] Work Phone: POC Glucose [employer] Glucose [Mass/Vol] 223 mg/dL High 75 - 110 mg/dL [facility] [employer] Interpretation and review of laboratory results Abnormal [facility] Glucose [Mass/Vol] 242 mg/dL High 75 - 110 mg/dL [facility] Interpretation and review of laboratory results Abnormal [facility] Glucose [Mass/Vol] 262 mg/dL High 75 - 110 mg/dL [facility] Interpretation and review of laboratory results Abnormal [facility] Glucose [Mass/Vol] 317 mg/dL High 75 - 110 mg/dL [facility] Interpretation and review of laboratory results Abnormal [facility] PROF 14(COMP METB)on 022 Albumin [Mass/Vol] 3.7 g/dL Normal 3.4-5.0 [facility] Comment on above: Performed By: #### H JOSUÉ, CMP, CRP #### [facility] [address] [address] [address] Sea Pugh Albumin/Globulin [Mass ratio] 0.9 {ratio} Normal [facility] Comment on above: Performed By: #### H PACOPN, CMP, CRP #### [facility] [address] [address] [address] Sea Pugh ALP [Catalytic activity/Vol] 150 U/L Critically high 46-116 [facility] Comment on above: Performed By: #### H STROPN, CMP, CRP #### [facility] [address] [address] [address] Sea Pugh ALT [Catalytic activity/Vol] 23 U/L Normal 16-63 [facility] Comment on above: Performed By: #### H STROPN, CMP, CRP #### [facility] [address] [address] [address] Sea Pugh Anion gap [Moles/Vol] 9.8 mmol/L Normal [facility] Comment on above: Performed By: #### H STROPN, CMP, CRP #### [facility] [address] [address] [address] Sea Pugh AST [Catalytic activity/Vol] 20 U/L Normal 15-37 [facility] Comment on above: Performed By: #### H STROPN, CMP, CRP #### [facility] [address] [address] [address] Sea Pugh Bilirubin [Mass/Vol] 1.2 mg/dL Critically high 0.2-1.0 [facility] Comment on above: Performed By: #### H STROPN, CMP, CRP #### [facility] [address] [address] [address] Sea Pugh Calcium [Mass/Vol] 8.5 mg/dL Normal 8.5-10.1 [facility] Comment on above: Performed By: #### H STROPN, CMP, CRP #### [facility] [address] [address] [address] Sea Pugh Chloride [Moles/Vol] 100 mmol/L Normal 98-107 [facility] Comment on above: Performed By: #### H STROPN, CMP, CRP #### [facility] [address] [address] [address] Sea Pugh CO2 [Moles/Vol] 26.8 mmol/L Normal 21.0-32.0 [facility] Comment on above: Performed By: #### H STROPN, CMP, CRP #### [facility] [address] [address] [address] Sea Pugh Creatinine [Mass/Vol] 1.21 mg/dL Normal 0.70-1.30 [facility] Comment on above: Performed By: #### H STROPN, CMP, CRP #### [facility] [address] [address] [address] Sea Pugh EGFR-AF ROMANIAN >60 Normal >=60 [facility] Comment on above: Performed By: #### H STROPN, CMP, CRP #### [facility] [address] [address] [address] Sea Pugh EGFR-NON AF ROMANIAN 58 mL/min/1.73m2 Critically low >=60 [facility] Comment on above: Performed By: #### H STROPN, CMP, CRP #### [facility] [address] [address] [address] Sea Pugh Globulin (S) [Mass/Vol] 3.9 g/dL Normal [facility] Comment on above: Performed By: #### H STROPN, CMP, CRP #### [facility] [address] [address] [address] Sea Pugh Glucose [Mass/Vol] 165 mg/dL Critically high 74-106 [facility] Comment on above: Performed By: #### H STROPN, CMP, CRP #### [facility] [address] [address] [address] Sea Pugh Potassium [Moles/Vol] 3.6 mmol/L Normal 3.5-5.1 [facility] Comment on above: Performed By: #### H STROPN, CMP, CRP #### [facility] [address] [address] [address] Sea Pugh Protein [Mass/Vol] 7.6 g/dL Normal 6.4-8.2 [facility] Comment on above: Performed By: #### H STROPN, CMP, CRP #### [facility] [address] [address] [address] Sea Pugh Sodium [Moles/Vol] 133 mmol/L Critically low 136-145 [facility] Comment on above: Performed By: #### H STROPN, CMP, CRP #### [facility] [address] [address] [address] Sea Pugh Urea nitrogen [Mass/Vol] 9.0 mg/dL Normal 7.0-18.0 [facility] Comment on above: Performed By: #### H STROPN, CMP, CRP #### [facility] [address] [address] [address] Sea Pugh Urea nitrogen/Creatinine [Mass ratio] 7.4 mg/mg Normal [facility] Comment on above: Performed By: #### H JOSUÉ, CMP, CRP #### [facility] [address] [address] [address] Sea Pugh Procalcitoninon 11-28-2021 Procalcitonin 0.10 ng/mL High <0.09 [facility] Comment on above: Result Comment: Suspected Sepsis: [...] entered into the Change in Procalcitonin Calculator (www.ogmojj-zrt-yjyepjfxck.com) to determine the patient's Mortality Risk Prognosis In healthy neonates, plasma Procalcitonin (PCT) concentrations increase gradually after , reaching peak values at about 24 hours of age then decrease to normal values below 0.5 ng/mL by 48-72 hours of age. Performed By: #### I OCAL, BMP, CDP #### [address] [place] [address] Signs Cleaner: Afshin Mansfield MD Interpretation and review of laboratory results Abnormal [facility] Procalcitonin 0.1 ng/mL High NINF - 0.09 ng/mL [facility] Comment on above: Suspected Sepsis: <0.50 [...] entered into the Change in Procalcitonin Calculator (www.ujlqvd-bdr-mpamfbundo.[employer]) to determine the patient's Mortality Risk Prognosis In healthy neonates, plasma Procalcitonin (PCT) concentrations increase gradually after , reaching peak values at about 24 hours of age then decrease to normal values below 0.5 ng/mL by 48-72 hours of age. [facility] SED RATE WESTERGRENon 2021 SED RATE 42 mm/hr Critically high <=20 [facility] Comment on above: Performed By: #### S EDR #### [facility] [address] [address] [address] Sea Pugh TROPONIN, HIGH SENSITIVITYon 11-28-2021 HSTROP 7.0 pg/mL Normal 4.0-76.1 [facility] Comment on above: Result Comment: CUT- OFF POINTS HAVE BEEN ESTABLISHED BASED ON THE FOURTH UNIVERSAL DEFINITIONS OF MYOCARDIAL INFARCTION. THE UPPER REFERENCE LIMIT (URL) OF TROPONIN, DEFINED THE 99TH PERCENTILE OF cTnI DISTRIBUTION IN A REFERENCE POPULATION, HAS BEEN CONFIRMED THE DECISION THRESHOLD FOR MS DIAGNOSIS. Performed By: #### H STROPN, CMP, CRP #### [facility] [address] [address] [address] Sea Pugh Office Visit (Cardiology)on 11-27-2021 [...] Metabolic Panel; Status:Active - Retrospective Authorization; Requested for:18Dec2021; Overweight with body mass index (BMI) of 28 to 28.9 in adult Healthy Weight Tips; Status:Complete - Retrospective Authorization; Done: 27Nov2021 Some eating tips that can help you lose weight.; Status:Complete - Retrospective Authorization; Done: 27Nov2021 Persistent atrial fibrillation IO EKG Electrocardiogram- 12 Lead; Status:Complete; Done: 27Nov2021 Single vessel coronary disease Renew: Aspirin EC [...] drug us (more content not included)... Normal [employer] Tobacco Screening.on 022 Fall risk assessment a) No falls within the last year -[facility] 250 DO Work Phone: Tobacco use status [facility] b) No [facility] 250 DO Work Phone: BNPon 09-22-2021 Natriuretic peptide B (Bld) [Mass/Vol] 836.0 pg/mL Normal <=900.0 [facility] Comment on above: Performed By: #### H STROPN, CMP, BNP ####[facility] [address] [address]Dr[address] Sea Pugh CBC AUTO DIFFon 09-22-2021 BASO # 0.1 103/ul Normal 0.0-0.1 [facility] Comment on above: Performed By: #### D DIM #### [facility] [address] [place] [address] Dr. Sea Pugh Basophils/100 WBC (Bld) 0.5 % Normal 0.2-2.0 [facility] Comment on above: Performed By: #### D DIM #### [facility] [address] [place] [address] Dr. Sea Pugh EO # 0.3 103/ul Normal 0.0-0.7 [facility] Comment on above: Performed By: #### D DIM #### [facility] [address] [address] [address] Sea Pugh Eosinophils/100 WBC (Bld) 3.3 % Normal 0.9-7.0 [facility] Comment on above: Performed By: #### D DIM #### [facility] [address] [place] [address] Dr. Sea Pugh Erythrocyte distribution width (RBC) [Ratio] 13.7 % Normal 11.0-15.0 [facility] Comment on above: Performed By: #### D DIM #### [facility] [address] [place] [address] Dr. Sea Pugh Hematocrit (Bld) [Volume fraction] 41.3 % Critically low 42.0-54.0 [facility] Comment on above: Performed By: #### D DIM #### [facility] [address] [place] [address] Dr. Sea Pugh Hemoglobin (Bld) [Mass/Vol] 14.0 g/dL Normal 14.0-18.0 [facility] Comment on above: Performed By: #### D DIM #### [facility] [address] [place] [address] Dr. Sea Pugh IG # 0.04 10e3/ul Critically high 0.00-0.03 [facility] Comment on above: Performed By: #### D DIM #### [facility] [address] [place] [address] Dr. Sea Pugh IG % 0.4 % Normal 0.0-0.5 [facility] Comment on above: Performed By: #### D DIM #### [facility] [address] [place] [address] Dr. Sea Pugh LYMPH # 1.3 103/ul Normal 1.2-3.8 [facility] Comment on above: Performed By: #### D DIM #### [facility] [address] [place] [address] Dr. Sea Pugh Lymphocytes/100 WBC (Bld) 13.1 % Critically low 20.5-60.0 [facility] Comment on above: Performed By: #### D DIM #### [facility] [address] [place] [address] Dr. Sea Pugh MANUAL DIFF REQ NO Normal [facility] Comment on above: Performed By: #### D DIM #### [facility] [address] [place] [address] Dr. Sea Pugh MCH (RBC) [Entitic mass] 30.2 pg Normal 25.9-34.0 [facility] Comment on above: Performed By: #### D DIM #### [facility] [address] [address] [address] Sea Pugh MCHC (RBC) [Mass/Vol] 33.9 g/dL Normal 29.9-35.2 [facility] [facility] Comment on above: Performed By: #### D DIM #### [facility] [address] [address] [address] Sea Pugh MCV (RBC) [Entitic vol] 89.0 fL Normal 80.0-94.0 [facility] Comment on above: Performed By: #### D DIM #### [facility] [address] [address] [address] Sea Pugh MONO # 1.0 103/ul Critically high 0.3-0.8 [facility] Comment on above: Performed By: #### D DIM #### [facility] [address] [address] [address] Sea Pugh Monocytes/100 WBC (Bld) 9.8 % Normal 1.7-12.0 [facility] Comment on above: Performed By: #### D DIM #### [facility] [address] [address] [address] Sea Pugh NEUT # 7.1 103/ul Critically high 1.4-6.5 [facility] Comment on above: Performed By: #### D DIM #### [facility] [address] [address] [address] Sea Pugh Neutrophils/100 WBC (Bld) 72.9 % Normal 43.0-75.0 [facility] Comment on above: Performed By: #### D DIM #### [facility] [address] [address] [address] Sea Pugh Platelet mean volume (Bld) [Entitic vol] 9.7 fL Normal 9.5-13.5 [facility] Comment on above: Performed By: #### D DIM #### [facility] [address] [address] [address] Sea Pugh PLT 247 103/ul Normal 150-450 [facility] Comment on above: Performed By: #### D DIM #### [facility] [address] [place], [place] [address] Dr. Sea Pugh RBC 4.64 106/ul Critically low 4.70-6.10 [facility] Comment on above: Performed By: #### D DIM #### [facility] [address] [place], [place] [address] Dr. Sea Pugh WBC 9.8 103/ul Normal 4.0-11.0 [facility] Comment on above: Performed By: #### D DIM #### [facility] [address] [place], [place] [address] Dr. Sea Pugh CTA CHEST WO W CONon 07-03-2 022 CTA CHEST WO W CON CTA [...] The subdiaphragmatic abdominal organs included in the [id number] do not demonstrate any acute abnormality. IMPRESSION: 1. Normal-appearing thoracic aorta. 2. No CT evidence for acute pulmonary embolus. 3. Otherwise unremarkable CT scan of the chest for acute pathology. Electronically authenticated by: OBI MIDDLETON Date: 2021-09-22 19:33 Normal [facility] Covid-19 PCR (CVDTB)on SARS-CoV-2 (COVID-19) RNA PHOENIX+probe Ql (Unsp spec) Not detected Normal NOT DETECTED [facility] Comment on above: Result Comment: When [...] for this test is supported by the [place] of [employer] and Human Service's declaration that [...] By: #### H STROPN, CMP, CRP #### [facility] [address] [place], [place] [address] Dr. Sea Pugh PROF 14(COMP METB)on 022 Albumin [Mass/Vol] 3.6 g/dL Normal 3.4-5.0 [facility] Comment on above: Performed By: #### H STROPN, CMP, BNP ####[facility] [address] [place], [place] [address]TyDr. Sea Pugh Albumin/Globulin [Mass ratio] 0.9 {ratio} Normal [facility] Comment on above: Performed By: #### H STROPN, CMP, BNP ####[facility] [address] [address]Dr. Sea Pugh ALP [Catalytic activity/Vol] 143 U/L Critically high 46-116 [facility] Comment on above: Performed By: #### H STROPN, CMP, BNP ####[facility] [address] [address]Dr. Sea Pugh ALT [Catalytic activity/Vol] 28 U/L Normal 16-63 [facility] Comment on above: Performed By: #### H STROPN, CMP, BNP ####[facility] [address] [address]Dr. Sea Pugh Anion gap [Moles/Vol] 12.6 mmol/L Normal [facility] Comment on above: Performed By: #### H STROPN, CMP, BNP ####[facility] [address] [address]Dr. Sea Pugh AST [Catalytic activity/Vol] 18 U/L Normal 15-37 [facility] Comment on above: Performed By: #### H STROPN, CMP, BNP ####[facility] [address] [address]Dr. Sea Pugh Bilirubin [Mass/Vol] 1.1 mg/dL Critically high 0.2-1.0 [facility] Comment on above: Performed By: #### H STROPN, CMP, BNP ####[facility] [address] [address]Dr. Sea Pugh Calcium [Mass/Vol] 8.7 mg/dL Normal 8.5-10.1 [facility] Comment on above: Performed By: #### H STROPN, CMP, BNP ####[facility] [address] [address]Dr. Sea Pugh Chloride [Moles/Vol] 100 mmol/L Normal 98-107 [facility] Comment on above: Performed By: #### H STROPN, CMP, BNP ####[facility] [address] [address]Dr. Sea Pugh CO2 [Moles/Vol] 27.1 mmol/L Normal 21.0-32.0 [facility] Comment on above: Performed By: #### H STROPN, CMP, BNP ####[facility] [address] [address]Dr. Sea Keaton Creatinine [Mass/Vol] 1.15 mg/dL Normal 0.70-1.30 [facility] Comment on above: Performed By: #### H STROPN, CMP, BNP ####[facility] [address] [address]Dr. Sea Keaton EGFR-AF ROMANIAN >60 Normal >=60 [facility] Comment on above: Performed By: #### H STROPN, CMP, BNP ####[facility] [address] [address]Dr. Sea Pugh EGFR-NON AF ROMANIAN >60 Normal >=60 [facility] Comment on above: Performed By: #### H STROPN, CMP, BNP ####[facility] [address] [address]Dr. Sea Pugh Globulin (S) [Mass/Vol] 3.9 g/dL Normal [facility] Comment on above: Performed By: #### H STROPN, CMP, BNP ####[facility] [address] [address]Dr. Shondapreston Keaton Glucose [Mass/Vol] 214 mg/dL Critically high 74-106 [facility] Comment on above: Performed By: #### H STROPN, CMP, BNP ####[facility] [address] [address]Dr. Shondapreston Keaton Potassium [Moles/Vol] 3.7 mmol/L Normal 3.5-5.1 [facility] Comment on above: Performed By: #### H STROPN, CMP, BNP ####[facility] [address] [address]Dr. Sea Pugh Protein [Mass/Vol] 7.5 g/dL Normal 6.4-8.2 [facility] Comment on above: Performed By: #### H STROPN, CMP, BNP ####[facility] [address] [address]Dr. Sea Pugh Sodium [Moles/Vol] 136 mmol/L Normal 136-145 [facility] Comment on above: Performed By: #### H JOSUÉ, CMP, BNP ####[facility] [address] [address]Dr. Sea Pugh Urea nitrogen [Mass/Vol] 13.0 mg/dL Normal 7.0-18.0 [facility] Comment on above: Performed By: #### H JOSUÉ, CMP, BNP ####[facility] [address] [address]Dr. Sea Pugh Urea nitrogen/Creatinine [Mass ratio] 11.3 mg/mg Normal [facility] Comment on above: Performed By: #### H JOSUÉ CMP, BNP ####[facility] [address] [address]Dr. Sea Pugh PROTIMEon 09-22-2021 INR Coag (PPP) [Relative time] 1.07 {INR} Normal [facility] Comment on above: Performed By: #### P T, PTT ####[facility] [address] [address]Dr. Sea Pugh INR GUIDELINES SEE BELOW Normal [facility] Comment on above: Result Comment: MONTEZ RED INR: 2.0 - 3.0 CONDITIONS NOT LISTED BELOW 2.5 - 3.5 FOR PROSTHETIC HEART VALVE REPLACEMENT 2.5 - 3.5 RECURRENT THROMBOSIS Performed By: #### P T, PTT ####[facility] [address] [place], [place] [address]Dr. Sea Pugh PT Coag (PPP) [Time] 11.5 s Normal 9.0-11.6 [facility] Comment on above: Performed By: #### P T, PTT ####[facility] [address] [place], [place] [address]Dr. Sea Pugh PTTon 09-22-2021 aPTT Coag (Bld) [Time] 30.2 s Normal 22.3-36.2 [facility] Comment on above: Performed By: #### P T, PTT ####[facility] [address] [place], [place] [address]Uq. Sea Pugh TROPONIN, HIGH SENSITIVITYon 09-22-2021 HSTROP 9.5 pg/mL Normal 4.0-76.1 [facility] Comment on above: Result Comment: CUT- OFF POINTS HAVE BEEN ESTABLISHED BASED ON THE FOURTH UNIVERSAL DEFINITIONS OF MYOCARDIAL INFARCTION. THE UPPER REFERENCE LIMIT (URL) OF TROPONIN, DEFINED THE 99TH PERCENTILE OF cTnI DISTRIBUTION IN A REFERENCE POPULATION, HAS BEEN CONFIRMED THE DECISION THRESHOLD FOR MS DIAGNOSIS. Performed By: #### H STROPN, CMP, BNP ####[facility] [address] [place], [place] [address]Fu. Sea Pugh XR CHEST 1 Von 09-22-2021 [...] FARIBA MCCLURE Date: 2021-09-22 19:39 Normal [facility] HEAD WO CONon 08-26-2021 CT [...] KENY GREENE Date: 2021-08-26 09:53 Normal [facility] CT ORBIT WO CONon 08-26-2021 CT [...] KENY GREENE Date: 2021-08-26 10:03 Normal [facility] CBC W MANUAL DIFFon 08-23-19 22 ATYPICAL LYMPH # Normal [facility] Comment on above: Performed By: #### D DIM #### [facility] [address] [place] [address] Dr. Sea Pugh ATYPICAL LYMPH % Normal [facility] Comment on above: Performed By: #### D DIM #### [facility] [address] [place] [address] Dr. Sea Pugh BAND # Normal 0.0-0.3 [facility] Comment on above: Performed By: #### D DIM #### [facility] [address] [place] [address] Dr. Sea Pugh BAND % Normal 0-5 [facility] Comment on above: Performed By: #### D DIM #### [facility] [address] [place] [address] Dr. Sea PRICE # 0.00 103/ul Normal 0.00-0.10 [facility] Comment on above: Performed By: #### D DIM #### [facility] [address] [place] [address] Dr. Yilan Pugh BASOM % 0.0 % Critically low 0.2-2.0 [facility] Comment on above: Performed By: #### D DIM #### [facility] [address] [place] [address] Dr. Sea Pugh BLAST # Normal [facility] Comment on above: Performed By: #### D DIM #### [facility] [address] [place] [address] Dr. Sea Pugh BLAST % Normal [facility] Comment on above: Performed By: #### D DIM #### [facility] [address] [place] [address] Dr. Sea Pugh CORRECTED WBC Normal 4.0-11.0 [facility] Comment on above: Performed By: #### D DIM #### [facility] [address] [place] [address] Dr. Sea Pugh EOS # 0.21 103/ul Normal 0.00-0.70 [facility] Comment on above: Performed By: #### D DIM #### [facility] [address] [place] [address] Dr. Sea Pugh EOS% 2.0 % Normal 0.9-7.0 [facility] Comment on above: Performed By: #### D DIM #### [facility] [address] [place] [address] Dr. Sea Pugh HCT 41.3 % Critically low 42.0-54.0 [facility] Comment on above: Performed By: #### D DIM #### [facility] [address] [place] [address] Dr. Sea Pugh HGB 14.1 g/dl Normal 14.0-18.0 [facility] Comment on above: Performed By: #### D DIM #### [facility] [address] [place] [address] Dr. Sea Pugh LYMPHM # 1.14 103/ul Critically low 1.20-3.80 [facility] Comment on above: Performed By: #### D DIM #### [facility] [address] [place] [address] Dr. Sea Pugh LYMPHM% 11.0 % Critically low 20.5-60.0 [facility] Comment on above: Performed By: #### D DIM #### [facility] [address] [place] [address] Dr. Sea Pugh MCH 30.9 pg Normal 25.9-34.0 [facility] Comment on above: Performed By: #### D DIM #### [facility] [address] [place] [address] Dr. Sea Pugh MCHC 34.1 g/dl Normal 29.9-35.2 [facility] Comment on above: Performed By: #### D DIM #### [facility] [address] [place] [address] Dr. Sea Pugh MCV 90.4 fL Normal 80.0-94.0 [facility] Comment on above: Performed By: #### D DIM #### [facility] [address] [place] [address] Dr. Sea Pugh METAMYELOCYTE # Normal [facility] Comment on above: Performed By: #### D DIM #### [facility] [address] [place] [address] Dr. Sea Pugh METAMYELOCYTE % Normal [facility] Comment on above: Performed By: #### D DIM #### [facility] [address] [place] [address] Dr. Sea Pugh MONOM# 1.98 103/ul Critically high 0.30-0.80 [facility] Comment on above: Performed By: #### D DIM #### [facility] [address] [place] [address] Dr. Sea Pugh MONOM% 19.0 % Critically high 1.7-12.0 [facility] Comment on above: Performed By: #### D DIM #### [facility] [address] [place] [address] Dr. Sea Puhg MPV 9.7 fL Normal 9.5-13.5 [facility] Comment on above: Performed By: #### D DIM #### [facility] [address] [place], [place] [id number] Dr. Sea Pugh MYELOCYTE # Normal [facility] Comment on above: Performed By: #### D DIM #### [facility] [address] [place] [address] Dr. Sea Pugh MYELOCYTE % Normal [facility] Comment on above: Performed By: #### D DIM #### [facility] [address] [address] [address] Sea Pugh NRBC Normal [facility] Comment on above: Performed By: #### D DIM #### [facility] [address] [address] [address] Sea Pugh PLT 259 103/ul Normal 150-450 [facility] Comment on above: Performed By: #### D DIM #### [facility] [address] [place] [address] Dr. Sea Pugh RBC 4.57 106/ul Critically low 4.70-6.10 [facility] Comment on above: Performed By: #### D DIM #### [facility] [address] [place] [address] Dr. Sea Pugh RDW 13.4 % Normal 11.0-15.0 [facility] Comment on above: Performed By: #### D DIM #### [facility] [address] [place] [address] Dr. Sea Pugh SEG # 7.07 103/ul Critically high 1.40-6.50 [facility] Comment on above: Performed By: #### D DIM #### [facility] [address] [place] [address] Dr. Sea Pugh SEG % 68.0 % Normal 43.0-75.0 [facility] Comment on above: Performed By: #### D DIM #### [facility] [address] [place] [address] Dr. Sea Pugh WBC 10.4 103/ul Normal 4.0-11.0 [facility] Comment on above: Performed By: #### D DIM #### [facility] [address] [place] [address] Dr. Sea Pugh PROF CHEM 8 (BAS METB)on 06- 02-2022 Anion gap [Moles/Vol] 13.5 mmol/L Normal [facility] Comment on above: Performed By: #### H STROPN, CMP, CRP #### [facility] [address] [address] [address] Sea Pugh Calcium [Mass/Vol] 8.7 mg/dL Normal 8.5-10.1 [facility] Comment on above: Performed By: #### H STROPN, CMP, CRP #### [facility] [address] [address] [address] Sea Pugh Chloride [Moles/Vol] 97 mmol/L Critically low 98-107 [facility] Comment on above: Performed By: #### H STROPN, CMP, CRP #### [facility] [address] [address] [address] Sea Pugh CO2 [Moles/Vol] 24.2 mmol/L Normal 21.0-32.0 [facility] Comment on above: Performed By: #### H STROPN, CMP, CRP #### [facility] [address] [address] [address] Sea Pugh Creatinine [Mass/Vol] 1.26 mg/dL Normal 0.70-1.30 [facility] Comment on above: Performed By: #### H STROPN, CMP, CRP #### [facility] [address] [address] [address] Sea Pugh EGFR-AF ROMANIAN >60 Normal >=60 [facility] Comment on above: Performed By: #### H STROPN, CMP, CRP #### [facility] [address] [address] [address] Sea Pugh EGFR-NON AF ROMANIAN 56 mL/min/1.73m2 Critically low >=60 [facility] Comment on above: Performed By: #### H STROPN, CMP, CRP #### [facility] [address] [address] [address] Sea Pugh Glucose [Mass/Vol] 201 mg/dL Critically high 74-106 [facility] Comment on above: Performed By: #### H STROPN, CMP, CRP #### [facility] [address] [address] [address] Sea Pugh Potassium [Moles/Vol] 3.7 mmol/L Normal 3.5-5.1 [facility] Comment on above: Performed By: #### H STROPN, CMP, CRP #### [facility] [address] [address] [address] Sea Pugh Sodium [Moles/Vol] 131 mmol/L Critically low 136-145 [facility] Comment on above: Performed By: #### H STROPN, CMP, CRP #### [facility] [address] [address] [address] Sea Pugh Urea nitrogen [Mass/Vol] 21.0 mg/dL Critically high 7.0-18.0 [facility] Comment on above: Performed By: #### H STROPN, CMP, CRP #### [facility] [address] [address] [address] Sea Pugh Urea nitrogen/Creatinine [Mass ratio] 16.7 mg/mg Normal [facility] Comment on above: Performed By: #### H STROPN, CMP, CRP #### [facility] [address] [address] [address] Sea Pugh XR CHEST 2 Von [...] VICENTA MARCH Date: 2021-08-22 05:46 Normal [facility] XR SINUSES 3 VIEWS OR GREATBoo Cervantes 08-22-2021 XR SINUSES 3 VIEWS OR GREATER [...] by: LOULOU DAVIS Date: 2021-08-22 06:31 Normal [facility] Tobacco Screening.on 022 Adult depression screening assessment No [facility] [address] DO Work Phone: Fall risk assessment a) No falls within the last year [facility] 250 DO Work Phone: Tobacco use status [facility] b) No [facility] [address] DO Work Phone: Vital Signs Date Time Vital Sign Value Performing Clinician Facility 05-26-2024 13:28-0500 Body height 185.4 cm Marciano Hi DPM Work Phone: [facility] 05-26-2024 13:28-0500 Body mass index (BMI) [Ratio] 27.97 kg/m2 Marciano Hi DPM Work Phone: [facility] 05-26-2024 13:28-0500 Body weight 96.16 kg Marciano Hi DPM Work Phone: [facility] 05-26-2024 13:28-0500 Respiratory rate 18 /min Marciano Hi DPM Work Phone: [facility] 04-20-2024 13:45-0500 Body height 185.4 cm Veronica Liz MD Work Phone: [facility] 04-20-2024 13:45-0500 Body mass index (BMI) [Ratio] 26.25 kg/m2 Veronica Liz MD Work Phone: [facility] 04-20-2024 13:45-0500 Body weight 90.27 kg Veronica Liz MD Work Phone: [facility] 04-20-2024 13:45-0500 Diastolic blood pressure 58 mm[Hg] Veronica Liz MD Work Phone: [facility] 04-20-2024 13:45-0500 Heart rate 61 /min Veronica Liz MD Work Phone: [facility] 04-20-2024 13:45-0500 Systolic blood pressure 96 mm[Hg] Veronica Liz MD Work Phone: [facility] 03-17-2024 11:51-0500 Body height 185.4 cm Marciano Hi DPM Work Phone: [facility] 03-17-2024 11:51-0500 Body mass index (BMI) [Ratio] 27.97 kg/m2 Marciano Hi DPM Work Phone: [facility] 03-17-2024 11:51-0500 Body weight 96.16 kg Marciano Hi DPM Work Phone: [facility] 03-17-2024 11:51-0500 Respiratory rate 18 /min Marciano Hi DPM Work Phone: [facility] 01-28-2024 14:56-0500 Body height 185.4 cm Veronica Liz MD Work Phone: [facility] 01-28-2024 14:56-0500 Body mass index (BMI) [Ratio] 27.31 kg/m2 Veronica Liz MD Work Phone: [facility] 01-28-2024 14:56-0500 Body weight 93.89 kg Veronica Liz MD Work Phone: [facility] 01-28-2024 14:56-0500 Diastolic blood pressure 66 mm[Hg] Veronica Liz MD Work Phone: [facility] 01-28-2024 14:56-0500 Heart rate 55 /min Veronica Liz MD Work Phone: [facility] 01-28-2024 14:56-0500 Systolic blood pressure 118 mm[Hg] Veronica Liz MD Work Phone: [facility] 01-07-2024 13:51-0400 Body height 185.4 cm Marciano Hi DPM Work Phone: [facility] 01-07-2024 13:51-0400 Body mass index (BMI) [Ratio] 27.97 kg/m2 Marciano Hi DPM Work Phone: [facility] 01-07-2024 13:51-0400 Body weight 96.16 kg Marciano Hi DPM Work Phone: [facility] 01-07-2024 13:51-0400 Diastolic blood pressure 77 mm[Hg] Marciano Hi DPM Work Phone: [facility] 01-07-2024 13:51-0400 Heart rate 81 /min Marciano Hi DPM Work Phone: [facility] 01-07-2024 13:51-0400 Systolic blood pressure 131 mm[Hg] Marciano Hi DPM Work Phone: [facility] 07-30-2023 15:50-0400 Diastolic blood pressure 82 mm[Hg] Veronica Liz MD Work Phone: [facility] 07-30-2023 15:50-0400 Systolic blood pressure 132 mm[Hg] Veronica Liz MD Work Phone: [facility] 07-30-2023 14:47-0400 Body height 185.4 cm Veronica Liz MD Work Phone: [facility] 07-30-2023 14:47-0400 Body mass index (BMI) [Ratio] 28.1 kg/m2 Veronica Liz MD Work Phone: [facility] 07-30-2023 14:47-0400 Body weight 96.62 kg Veronica Liz MD Work Phone: [facility] 07-30-2023 14:47-0400 Heart rate 96 /min Veronica Liz MD Work Phone: [facility] 01-29-2023 14:35-0500 Body height 185.4 cm Veronica Liz MD Work Phone: [facility] 01-29-2023 14:35-0500 Body mass index (BMI) [Ratio] 28.89 kg/m2 Veronica Liz MD Work Phone: [facility] 01-29-2023 14:35-0500 Body weight 99.34 kg Veronica Liz MD Work Phone: [facility] 01-29-2023 14:35-0500 Diastolic blood pressure 74 mm[Hg] Veronica Liz MD Work Phone: [facility] 01-29-2023 14:35-0500 Heart rate 62 /min Veronica Liz MD Work Phone: [facility] 01-29-2023 14:35-0500 Systolic blood pressure 132 mm[Hg] Veronica Liz MD Work Phone: [facility] 08-06-2022 13:15-0400 Body height 185.42 cm Valente P House Work Phone: [facility] [address] [place] Work Phone: 08-06-2022 13:15-0400 Body mass index (BMI) [Ratio] 28.23 kg/m2 Valente P House Work Phone: [facility] [address] [place] Work Phone: 08-06-2022 13:15-0400 Body surface area Derived from formula 2.21 m2 Valente P House Work Phone: [facility] [address] [place] Work Phone: 08-06-2022 13:15-0400 Body weight 97.07 kg Valente P House Work Phone: [facility] [address] [place] Work Phone: 08-06-2022 13:15-0400 Diastolic blood pressure 68 mm[Hg] Valente P House Work Phone: [facility] [address] [place] Work Phone: 08-06-2022 13:15-0400 Heart rate 57 /min Valente P House Work Phone: [facility] [address] [place] Work Phone: 08-06-2022 13:15-0400 Systolic blood pressure 132 mm[Hg] Valente P House Work Phone: [facility] [address] [place] Work Phone: 06-06-2022 09:22-0400 Body height 185.42 cm Valente P House Work Phone: [facility] 250 DO Work Phone: 06-06-2022 09:22-0400 Body mass index (BMI) [Ratio] 27.84 kg/m2 Valente P House Work Phone: [facility] 250 DO Work Phone: 06-06-2022 09:22-0400 Body surface area Derived from formula 2.2 m2 Valente P House Work Phone: [facility] [address] DO Work Phone: 06-06-2022 09:22-0400 Body weight 95.71 kg Valente P House Work Phone: [facility] 250 DO Work Phone: 06-06-2022 09:22-0400 Diastolic blood pressure 62 mm[Hg] Valente P House Work Phone: [facility] [address] DO Work Phone: 06-06-2022 09:22-0400 Heart rate 80 /min Valente P House Work Phone: [facility] 250 DO Work Phone: 06-06-2022 09:22-0400 Systolic blood pressure 134 mm[Hg] Valente P House Work Phone: [facility] 250 DO Work Phone: 06-05-2022 13:14-0400 Body height 185.42 cm Valente P House Work Phone: [facility] 250 DO Work Phone: 06-05-2022 13:14-0400 Body mass index (BMI) [Ratio] 27.84 kg/m2 Valente P House Work Phone: [facility] 250 DO Work Phone: 06-05-2022 13:14-0400 Body surface area Derived from formula 2.2 m2 Valente P House Work Phone: [facility] 250 DO Work Phone: 06-05-2022 13:14-0400 Body weight 95.71 kg Valente P House Work Phone: [facility] 250 DO Work Phone: 06-05-2022 13:14-0400 Diastolic blood pressure 70 mm[Hg] Valente P House Work Phone: [facility] 250 DO Work Phone: 06-05-2022 13:14-0400 Heart rate 126 /min Valente P House Work Phone: [facility] 250 DO Work Phone: 06-05-2022 13:14-0400 Systolic blood pressure 124 mm[Hg] Valente P House Work Phone: [facility] 250 DO Work Phone: 12-04-2021 10:00-0400 Diastolic blood pressure 83 mm[Hg] Neal Velázquez MD Work Phone: [facility] [employer] 12-04-2021 10:00-0400 Heart rate 82 /min Neal Velázquez MD Work Phone: [facility] [employer] 12-04-2021 10:00-0400 Respiratory rate 18 /min Neal Velázquez MD Work Phone: [facility] [employer] 12-04-2021 10:00-0400 SaO2% (BldA) [Mass fraction] 95 % Neal Velázquez MD Work Phone: [facility] [employer] 12-04-2021 10:00-0400 Systolic blood pressure 130 mm[Hg] Neal Velázquez MD Work Phone: [facility] [employer] 12-04-2021 08:00-0400 Body temperature 97.9 [degF] Neal Velázquez MD Work Phone: [facility] [employer] 11-28-2021 03:30-0400 Body height 185.4 cm Neal Velázquez MD Work Phone: [facility] [employer] 11-28-2021 03:30-0400 Body mass index (BMI) [Ratio] 27.34 kg/m2 Neal Velázquez MD Work Phone: [facility] [employer] 11-28-2021 03:30-0400 Body weight 94 kg Neal Velázquez MD Work Phone: [facility] [employer] 11-27-2021 14:19-0400 Diastolic blood pressure 88 mm[Hg] Valente Ortega House Work Phone: [facility] 250 DO Work Phone: 11-27-2021 14:19-0400 Systolic blood pressure 139 mm[Hg] Valente P House Work Phone: [facility] 250 DO Work Phone: 11-27-2021 13:40-0400 Body height 185.42 cm Valente P House Work Phone: [facility] 250 DO Work Phone: 11-27-2021 13:40-0400 Body mass index (BMI) [Ratio] 28.63 kg/m2 Valente P House Work Phone: [facility] 250 DO Work Phone: 11-27-2021 13:40-0400 Body surface area Derived from formula 2.23 m2 Valente P House Work Phone: [facility] 250 DO Work Phone: 11-27-2021 13:40-0400 Body weight 98.43 kg Valente P House Work Phone: [facility] 250 DO Work Phone: 11-27-2021 13:40-0400 Diastolic blood pressure 80 mm[Hg] Valente P House Work Phone: [facility] 250 DO Work Phone: 11-27-2021 13:40-0400 Heart rate 61 /min Valente P House Work Phone: [facility] 250 DO Work Phone: 11-27-2021 13:40-0400 Systolic blood pressure 174 mm[Hg] Valente P House Work Phone: [facility] 250 DO Work Phone: 09-17-2021 12:15-0400 Body height 185.42 cm Saurabh Goyal Other [employer] Other 09-17-2021 12:15-0400 Body mass index (BMI) [Ratio] 28.49 kg/m2 Saurabh Olexa Other [employer] Other 09-17-2021 12:15-0400 Body weight 97.98 kg Saurabh Olexa Other [employer] Other 08-29-2021 10:30-0400 Body height 185.42 cm Saurabh Olexa Other [employer] Other 08-29-2021 10:30-0400 Body mass index (BMI) [Ratio] 28.49 kg/m2 Saurabh Olexa Other [employer] Other 08-29-2021 10:30-0400 Body weight 97.98 kg Saurabh Olexa Other [employer] Other 05-22-2021 13:17-0500 Body height 185.42 cm Valente P House Work Phone: [facility] [employer] 250 DO Work Phone: 05-22-2021 13:17-0500 Body mass index (BMI) [Ratio] 29.95 kg/m2 Valente P House Work Phone: [facility] 250 DO Work Phone: 05-22-2021 13:17-0500 Body surface area Derived from formula 2.27 m2 Valente P House Work Phone: [facility] [facility] 250 DO Work Phone: 05-22-2021 13:17-0500 Body weight 102.97 kg Valente P House Work Phone: [facility] 250 DO Work Phone: 05-22-2021 13:17-0500 Diastolic blood pressure 74 mm[Hg] Valente P House Work Phone: [facility] 250 DO Work Phone: 05-22-2021 13:17-0500 Heart rate 60 /min Valente Ortega [employer] Work Phone: [facility] 250 DO Work Phone: 05-22-2021 13:17-0500 Systolic blood pressure 137 mm[Hg] Valente Ortega [employer] Work Phone: [facility] 250 DO Work Phone: Encounters Encounter Date Encounter Type Care Provider Facility Start: 08-11-2024 End: 08-11-2024 ambulatory MARCIANO HI Not Available Start: 05-26-2024 End: 05-26-2024 Bamboo flowsheet Marciano Hi DPM Work Phone: [facility] Start: 05-26-2024 End: 05-26-2024 Bamboo flowsheet Marciano Hi DPM Work Phone: [employer] [employer] Start: 05-26-2024 End: 05-26-2024 Office outpatient visit 15 minutes Marciano Hi DPM Work Phone: [employer] [facility] Comment on above: Xerosis cutis (Prima ry Dx); Diabetes 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, 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 ([facility]); Pain due to onychomycosis of toenails of both feet; Right foot drop Start: 05-26-2024 End: 05-26-2024 ambulatory MARCIANO HI Not Available Start: 04-20-2024 End: 04-20-2024 Office outpatient visit 40 minutes Veronica Liz MD Work Phone: [facility] Comment on above: TIA (transient ische alexandra attack) (Primary Dx); Single vessel coronary disease; High risk medication use; Stenosis of right carotid artery; Persistent atrial fibrillation (Multi); Mixed hyperlipidemia; Essential hypertension; Cerebrovascular accident (CVA), unspecified mechanism (Multi); Former smoker; BMI 26.0-26.9,adult Start: 04-20-2024 End: 04-20-2024 ambulatory [facility] Start: 03-17-2024 End: 03-17-2024 Bamboo flowsheet Marciano Hi DPM Work Phone: [facility] Start: 03-17-2024 End: 03-17-2024 Bamboo flowsheet Marciano Hi DPM Work Phone: [facility] Start: 03-17-2024 End: 03-17-2024 Office outpatient visit 10 minutes Marciano Hi DPM Work Phone: [facility] Comment on above: Xerosis cutis (Prima ry Dx); Diabetes 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, 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 ([facility]); Pain due to onychomycosis of toenails of both feet; Right foot drop Start: 03-17-2024 End: 03-17-2024 ambulatory MARCIANO HI Not Available Start: 01-28-2024 End: 01-28-2024 Office outpatient visit 25 minutes Veronica Liz MD Work Phone: [facility] Comment on above: Persistent atrial fi brillation (Multi) (Primary Dx); Single vessel coronary disease; Mixed hyperlipidemia; Essential hypertension; Anemia, unspecified type; Cerebrovascular accident (CVA), unspecified mechanism (Multi); High risk medication use; Former smoker; BMI 27.0-27.9,adult Start: 01-28-2024 End: 01-28-2024 ambulatory [facility] Start: 01-07-2024 End: 01-07-2024 Bamboo flowspernell Hi DPM Work Phone: [facility] Start: 01-07-2024 End: 01-07-2024 Bamboo flowsheet Marciano Hi DPM Work Phone: [facility] Start: 01-07-2024 End: 01-07-2024 Office outpatient visit 15 minutes Marciano Hi DPM Work Phone: [facility] Comment on above: Xerosis cutis (Prima ry Dx); Onychomycosis; Pain due to onychomycosis of toenails of both feet; Right foot drop Start: 01-07-2024 End: 01-07-2024 ambulatory MARCIANO HI Not Available Start: 10-29-2023 End: 10-29-2023 ambulatory MARCIANO HI Not Available Start: 07-30-2023 End: 07-30-2023 Office outpatient visit 25 minutes Veronica Liz MD Work Phone: [facility] Comment on above: High risk medication use (Primary Dx); Single vessel coronary disease; Essential hypertension; Mixed hyperlipidemia; Persistent atrial fibrillation (Multi); BMI 28.0-28.9,adult; Cerebrovascular accident (CVA), unspecified mechanism (Multi); Anemia, unspecified type; Former smoker Start: 07-30-2023 End: 07-30-2023 ambulatory [facility] Start: 01-29-2023 End: 01-29-2023 Office outpatient visit 25 minutes Veronica Liz MD Work Phone: [facility] Comment on above: Single vessel carvalho ry disease (Primary Dx); Essential hypertension; Mixed hyperlipidemia; Persistent atrial fibrillation (CMS/HCC); Anemia, unspecified type; BMI 28.0-28.9,adult Start: 08-25-2022 Rx Renewal Valente saul Work Phone: [place] [id number] [place] Work Phone: Start: 08-06-2022 ambulatory Mohanrosa Liz Fac lity: Start: 07-03-2022 Rx Renewal Valente saul Work Phone: [facility] 250 DO Work Phone: Start: 06-06-2022 FUV, Provider: Veronica Liz, Status: Pen, Time: 9:40 AM Valente Ortega Michelle Work Phone: [facility] 250 DO Work Phone: Start: 06-06-2022 Office outpatient vi sit 10 minutes Valente P House Work Phone: [facility] 250 DO Work Phone: Start: 06-06-2022 ambulatory Mourhaf Traboulssi Faci lity: Start: 06-05-2022 Office outpatient vi sit 40 minutes Valente P House Work Phone: [facility] 250 DO Work Phone: Start: 06-05-2022 ambulatory Mourcami Olsoni Faci lity: Start: 05-14-2022 End: 05-15-[address] VALENTE MARTINEZ Facility:H1 Start: 04-20-2022 End: 04-21-[address] VALENTE MARTINEZ Facility:[facility]1 Start: 02-17-2022 Rx Renewal Valente Murguia e Work Phone: [facility] 250 DO Work Phone: Start: 12-20-2021 End: 12-21-[address] VALENTE MARTINEZ Facility:[facility]1 Start: 12-05-2021 End: 12-06-[address] VALENTE MARTINEZ Facility:[facility]1 Start: 11-28-2021 End: 12-04-2021 Evaluation and management of inpatient BENITA PATTERSON [facility] Start: 11-28-2021 End: 12-04-2021 Evaluation and management of inpatient Neal Velázquez MD Work Phone: [facility] Comment on above: Cerebrovascular acci dent (CVA), unspecified mechanism (HCC) (Primary Dx); Hyponatremia Start: 11-28-2021 End: 11-28-[address] BENITA PATTERSON . Facility:[facility]1 Start: 11-27-2021 Office outpatient vi sit 25 minutes Valente P House Work Phone: [facility] 250 DO Work Phone: Start: 11-27-2021 ambulatory Veronica Liz Faci lity: Start: 11-18-2021 Rx Renewal Valente saul Work Phone: [facility] 250 DO Work Phone: Start: 09-23-2021 ambulatory [facility] :[id number] Start: 09-22-2021 End: 09-23-2021 ambulatory [facility] Start: 09-22-2021 End: 09-23-[address] ANN MANLEY Facility:H1 Start: 09-17-2021 End: 09-17-2021 ambulatory Saurabh Olexa Other [employer] Other Start: 09-17-2021 Postop follow up vis it related to original px Saurabh Olexa [facility] Start: 08-29-2021 End: 08-29-2021 ambulatory Saurabh Olexa Other [employer] Other Start: 08-29-2021 FQHC visit new patient Saurabh Brothersxa [facility] Start: 08-26-2021 End: 08-26-[address] VALENTE MARTINEZ Facility:H1 Start: 08-22-2021 End: 08-22-[address] VALENTE MARTINEZ Facility:H1 Start: 05-22-2021 Office outpatient vi sit 25 minutes Valente Martinez Work Phone: [facility] 250 DO Work Phone: Start: 06-10-2018 Patient encounter procedure VERONICA LIZ Facility:[id number] Procedures Date Procedure Procedure Detail Performing Clinician Start: 04-20-2024 Ecg routine ecg w/le ast 12 lds w/i&r Veronica Liz MD Work Phone: Start: 01-28-2024 Ecg routine ecg w/le ast [...] Start: 12-04-2021 Glucose blood reagent strip Allan Agora Mobileri DO Work Phone: Start: 12-04-2021 Basic metabolic pane l calcium total 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 Work Phone: Start: 12-03-2021 Glucose blood reagent strip Allan Agora Mobileri DO Work Phone: Start: 12-03-2021 End: 12-03-2021 Assay of osmolality urine Mohammad I Mas haydee DO Work Phone: Start: 12-03-2021 Glucose blood reagent strip Allan Chirri DO Work Phone: Start: 12-03-2021 Basic metabolic pane l calcium total 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 Work Phone: Start: 12-02-2021 Glucose blood reagent [...] metabolic pane l calcium total Amanda Garcia 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 Work Phone: Start: 11-30-2021 Glucose blood reagent strip Allan Chirri DO Work Phone: Start: 11-30-2021 Echo tthrc r-t 2d w/wom-mode compl spec&colr d Yolie Cabrera MD Work Phone: Start: 11-30-2021 Glucose blood reagent strip Allan Chirri DO Work Phone: Start: 11-30-2021 End: 11-30-2021 Basic metabolic panel calcium total Amanda Garcia 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 Work Phone: Start: 11-29-2021 Glucose blood reagent strip Allan Chirri DO Work Phone: Start: 11-29-2021 Glucose blood reagent strip Neal Velázquez MD Work Phone: Start: 11-29-2021 Ecg routine ecg w/le ast 12 lds i&r only Marilu Atkins 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 Work Phone: Start: 11-29-2021 Glucose blood reagent strip Neal Velázquez MD Work Phone: Start: 11-29-2021 Assay of magnesium Neal Velázquez MD Work Phone: Start: 11-29-2021 Ct head/brain w/o co ntrast material Isidro Mehta MD Work Phone: Start: 11-29-2021 Glucose blood reagent strip Neal Velázquez MD Work Phone: Start: 11-29-2021 Basic metabolic pane l calcium total Amanda Garcia 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 Work Phone: Start: 11-29-2021 Glucose blood reagent [...] Velázquez MD Work Phone: Cataract surgery Valente P H ouse Work Phone: Colonoscopy Valente P House Work Phone: Elbow joint operations Charl es P House Work Phone: Operation on gallbladder Chelsea rles P House Work Phone: Procedure on back Valente P House Work Phone: Tonsillectomy Valente P Hous e Work Phone: Vasectomy Valente P House Work Phone: Plan of Treatment Date Care Activity Detail Author Start: 10-26-2024 End: 10-26-2024 Patient encounter procedure 10/26/2024 2:30 PM EDT Office Visit [address] [place] [address] Veronica Liz MD [address] [facility] [address] [place] [address] [place] [address] [facility] Start: 08-11-2024 End: 08-11-2024 Patient encounter procedure 08/11/2024 2:10 PM EDT Procedure Visit [facility] [address] [facility] [address] [place] [address] Marciano Hi, DPM [address] [facility] 5 [place] [address] [facility] Start: 08-03-2024 End: 08-03-2024 Patient encounter procedure 08/03/2024 3:30 PM EDT Office Visit [address] [place] [address] Veronica Liz MD [address] [facility] [address] [place] [address] [place] [address] [facility] Start: 05-26-2024 End: 05-26-2024 Patient encounter procedure [facility] Comment on above: Diabetes mellitus du e to underlying condition with diabetic polyneuropathy, 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 (CMS/HCC) (Primary Dx); Pain due to onychomycosis of toenails of both feet; Right foot drop; Xerosis cutis Start: 03-17-2024 End: 03-17-2024 Patient encounter procedure 03/17/2024 1:50 PM EST Procedure Visit [facility] [address] [facility] [address] [place] [address] Marciano Hi, VILMA [address] [facility] 5 [place] [address] [facility] Start: 03-17-2024 End: 03-17-2024 Patient encounter procedure 03/17/2024 11:50 AM EST Procedure Visit [facility] [address] [facility] [address] [place] [id number] Marciano Hi DPM [address] [address] Diabetes 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, 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 (CMS/HCC) (Primary Dx); Pain due to onychomycosis of toenails of both feet; Right foot drop; Xerosis cutis [facility] Comment on above: Diabetes mellitus du e to underlying condition with diabetic polyneuropathy, unspecified whether fci insulin use (CMS/HCC) (Primary Dx); Pain due to onychomycosis of toenails of both feet; Right foot drop; Xerosis cutis Start: 01-28-2024 End: 01-28-2024 Patient encounter procedure 01/28/2024 3:10 PM EST Office Visit [facility] [address] [facility] 250 [place] [id number] Veronica Liz MD [address] [facility] [address], [place] [address] [place] [address] [facility] Start: 01-07-2024 End: 01-07-2024 Patient encounter procedure 01/07/2024 2:00 PM EDT Procedure Visit [facility] [address] [facility] [address] [place] [address] Marciano Hi DPM [address] [facility] 5 [place] [address] Onychomycosis (Primary Dx); Pain due to onychomycosis of toenails of both feet; Right foot drop; Xerosis cutis [facility] Comment on above: Onychomycosis (Prima ry Dx); Pain due to onychomycosis of toenails of both feet; Right foot drop; Xerosis cutis Start: 11-22-2023 COVID-19 Vaccine ( season) COVID-19 Vaccine () [facility] Start: 11-22-2023 Influenza vaccination [facility] Start: 07-30-2023 End: 07-30-2023 Patient encounter procedure 07/30/2023 3:00 PM EDT Office Visit [facility] [address] [facility] [address] [place] [phone] Veronica Liz MD [address] [facility] [address], [facility] [address] [place] [address] [facility] Start: 01-29-2023 FUV, Provider: Veronica Liz, Status: Pen, Time: 3:10 PM FUV, Provider: Veronica Liz, Status: Pen, Time: 3:[address] [facility] [address] [place] Work Phone: Start: 11-28-2022 Diabetes mellitus screening Diabetes Screening [facility] Start: 11-28-2022 Hemoglobin A1c measurement A1C test (Diabetic or Prediabetic) [facility] Start: 11-28-2022 Lipid panel Lipids [facility] Start: 11-21-2022 COVID-19 Vaccine () COVID-19 Vaccine () [facility] Start: 11-21-2022 Influenza vaccination Influenza Vacc ine (#1) [facility] Start: 08-06-2022 FUV, Provider: Veronica Liz, Status: Pen, Time: 1:30 PM FUV, Provider: Veronica Liz, Status: Pen, Time: 1:30 PM [facility] 250 DO Work Phone: Start: 06-05-2022 FUV, Provider: Veronica Liz, Status: Pen, Time: 1:20 PM FUV, Provider: Veronica Liz, Status: Pen, Time: 1:20 PM [facility] 250 DO Work Phone: Start: 02-27-2022 Hemoglobin A1c measurement Diabetes: Hemoglobin A1C [facility] Start: 01-27-2022 End: 01-27-2022 Patient encounter procedure 01/27/2022 Office Visit Neurology AntoniJasmin lee MD [address] [place] [address] [facility] Start: 12-31-2021 NURSEVST, Provider: SURJIT TIRADO FRUIT LOADER MACHINE OPERATOR 1,[id number], Status: Pen, Time: 1:30 PM NURSEVST, Provider: SURJIT TIRADO FRUIT LOADER MACHINE OPERATOR 1,[id number], Status: Pen, Time: 1:[address] [facility] 250 DO Work Phone: Start: 12-19-2021 End: 11-30-2022 CT HEAD WO CONTRAST CT HEAD WO CONTRAST Imaging Routine Cerebrovascular accident (CVA), unspecified mechanism (HCC) Expected: 12/19/2021, Expires: 11/30/2022 [facility] Work Phone: Comment on above: Expected: 12/19/2021 , Expires: 11/30/2022 Start: 12-10-2021 End: 10-13-2022 Basic metabolic 2000 panel - Serum or Plasma Basic Metabolic Panel Lab Routine Hyponatremia Expected: 12/10/2021, Expires: 01/02/2022 [facility] [employer] Work Phone: Comment on above: Expected: 12/10/2021 , Expires: 01/02/2022 Start: 11-27-2021 FUV, Provider: Veronica Liz, Status: Pen, Time: 1:30 PM FUV, Provider: Veronica Liz, Status: Pen, Time: 1:30 PM [facility] 250 DO Work Phone: Start: 11-21-2021 Influenza vaccination Flu vaccine (# 1) [facility] Start: 2021 RSV High Risk: (Elde rly (60+) or Population) (1 - 1-dose 75+ series) RSV High Risk: (Elderly (60+) or Population) (1 - 1-dose 75+ series) [facility] Start: 05-18-2021 COVID-19 Vaccine (4 - Booster for Pfizer series) COVID-19 Vaccine (4 - Booster for Pfizer series) [facility] Start: 03-12-2021 COVID-19 Vaccine (4 - Pfizer series) COVID-19 Vaccine (4 - Pfizer series) [facility] Start: 10-24-2011 Abdominal aortic aneurysm screening AAA screen [facility] Start: 2006 RSV patient s and/or patients aged 60+ years (1 - 1-dose 60+ series) RSV patients and/or patients aged 60+ years (1 - 1-dose 60+ series) [facility] Start: 1996 Shingles vaccine (1 of 2) Shingles vaccine (1 of 2) [facility] Start: 1996 Zoster Vaccines (1 o f 2) Zoster Vaccines (1 of 2) [facility] Start: 10-24-1991 Screening for malign ant neoplasm of colon [facility] Start: 1968 DTaP/Tdap/Td Vaccine s (1 - Tdap) DTaP/Tdap/Td Vaccines (1 - Tdap) [facility] Start: 1965 DTaP/Tdap/Td vaccine (1 - Tdap) DTaP/Tdap/Td vaccine (1 - Tdap) [facility] Start: 1965 Pneumococcal vaccination Pneumococcal Vaccine (1 of 2 - PCV) [facility] Start: 1965 Urine screening for protein Diabetes: Urine Protein Screening [facility] Start: 1964 Diabetic retinal exam Diabetic retin al exam [facility] Start: 1964 Hepatitis C screening B [facility] Start: 1958 Depression Screen Depression Screen [facility] Start: 1956 Diabetic foot examination Diabetic foot exam [facility] Start: 1956 Glaucoma screening Diabetes: R etinopathy Screening [facility] Start: 1952 Pneumococcal 65+ yea rs Vaccine (1 - PCV) Pneumococcal 65+ years Vaccine (1 - PCV) [facility] Start: 1952 Pneumococcal Vaccine : 65+ Years (1 - PCV) Pneumococcal Vaccine: 65+ Years (1 - PCV) [facility] Start: 1952 Pneumococcal Vaccine : 65+ Years (1 of 2 - PCV) Pneumococcal Vaccine: 65+ Years (1 of 2 - PCV) [facility] Start: 1946 Annual Wellness Visi t (AWV) Annual Wellness Visit (AWV) [facility] Start: 1946 Lipid panel Lipid Panel [facility] Start: 1946 Medicare Annual Wellness (AWV) Medicare Annual Wellness (AWV) [facility] Start: 1946 Medicare Annual Wellness Visit Medicare Annual Wellness Visit (AWV) [facility] End: 12-05-2021 Basic metabolic 2000 panel - Serum or Plasma Basic Metabolic Panel Lab Routine Daily for 3 Days starting 12/03/2021 until 12/05/2021, 2 completed [facility] Work Phone: Comment on above: Daily for 3 Days sta rting 12/03/2021 until 12/05/2021, 2 completed End: 12-05-2021 CBC W Auto Differential panel - Blood CBC with Auto Differential Lab Routine Daily for 3 Days starting 12/03/2021 until 12/05/2021, 2 completed [employer] Phone: Comment on above: Daily for 3 Days sta rting 12/03/2021 until 12/05/2021, 2 completed Continuous pulse oximetry Pulse oximetry, continuous Respiratory Care Routine Every 4hr until discontinued starting 11/28/2021 [employer] Phone: Comment on above: Every 4hr until disc ontinued starting 11/28/2021 Glucose [Mass/volume ] in Serum or Plasma [employer] Phone: Comment on above: 4X Daily (AC & HS) u ntil discontinued starting 11/28/2021 As Needed until disc ontinued starting 11/28/2021 Oxygen therapy [[facility] Data Set] Initiate Oxygen Therapy Protocol Respiratory Care Routine As Needed until discontinued starting 11/28/2021 [employer] Phone: Comment on above: As Needed until disc ontinued starting 11/28/2021 End: 11-28-2021 [employer] clinical swallow evaluation FOOD RUNNER clinical swallow evaluation FOOD RUNNER Routine One Time for 1 Occurrences starting 11/28/2021 until 11/28/2021 [employer] Phone: Comment on above: One Time for 1 Occur rences starting 11/28/2021 until 11/28/2021 End: 11-28-2021 Speech and language therapy regime Speech Language Pathology (FOOD RUNNER) eval and treat FOOD RUNNER Routine One Time for 1 Occurrences starting 11/28/2021 until 11/28/2021 [employer] Phone: Comment on above: One Time for 1 Occur rences starting 11/28/2021 until 11/28/2021 Immunizations Immunization Date Immunization Notes Care Provider Zoya amezquita 01-15-2021 Pfizer-BioNTech COVID-19 Vacc 30 MCG/0.3ML Intramuscular Suspension Valente Martinez Work Phone: [facility] Comment on above: Series: 06-12-2020 Pfizer-BioNTech COVID-19 Vacc 30 MCG/0.3ML Intramuscular Suspension Valente P House Work Phone: [facility] 05-21-2020 Pfizer-BioNTech COVID-19 Vacc 30 MCG/0.3ML Intramuscular Suspension Valente P House Work Phone: [facility] Comment on above: Series: 03-23-2017 influenza virus vaccine, unspecified formulation Valente P House Work Phone: -[facility] 250 DO Work Phone: Payers Date Payer Category Payer Self-pay [id number] 2011 Medicare [id number] 1959 Medicare [id number] 1945 Unknown [id number] 2.16.8 40.1.931038.3.579.2.355 1945 Unknown [id number] 2.16. 840.1.786621.3.579.2.175 1945 Unknown [id number] 2.16.84 0.1.267180.3.579.2.593 1945 Unknown [id number] 2.16.84 0.1.103982.3.579.2.593 1945 Unknown [id number] 2.16.84 0.1.767487.3.579.2.593 1945 Unknown [id number] 2.16.84 0.1.562815.3.579.2.593 1946 Unknown [id number] 2.16.84 0.1.597234.3.579.2.593 1946 Unknown [id number] 2.16.84 0.1.254993.3.579.2.593 1946 Unknown [id number] 2.16.84 0.1.175487.3.579.2.593 1946 Unknown [id number] 2.16.84 0.1.185878.3.579.2.593 1946 Unknown [id number] 2.16. 840.1.266399.3.579.2.356 1945 Unknown [id number] 2.16. 840.1.937950.3.579.2.356 1945 Unknown [id number] 2.16. 840.1.408395.3.579.2.356 1946 Unknown [id number] 2.16. 840.1.796643.3.579.2.356 1945 Unknown [id number] 2.16. 840.1.734591.3.579.2.356 1945 Unknown [id number] 2.16.840.1.089335.3.579.2.1244 1946 Unknown [id number] 2.16.840.1.042317.3.579.2.1244 1946 Unknown [id number] 2.16.8 40.1.860640.3.579.2.1244 1946 Unknown [id number] 2.16.84 0.1.908139.3.579.2.1259 1946 Unknown [id number] 2.16.84 0.1.511970.3.579.2.1259 1945 Unknown [id number] 2.16.84 0.1.432867.3.579.2.1259 1946 Unknown [id number] 2.16.84 0.1.441127.3.579.2.1259 1946 Unknown [id number] 2.16.84 0.1.013702.3.579.2.1259 Unknown Unknown HCAP/HFA/FAP Active [id number] Unknown [id number] 2.16.8 40.1.174383.3.579.2.531 Social History Date Type Detail Facility Start: 01-29-2023 End: 03-17-2024 No illicit drug use No illicit drug use -[facility] 250 DO Work Phone: Comment on above: 1 BEER OCCASIONALLY; 2 CUPS OF COFFEE ELVIN LY; QUIT MAR 2019; Start: 01-29-2023 End: 03-17-2024 Sex Assigned At [facility] [employer] Other Start: 12-02-2021 End: 07-30-2023 Tobacco smoking status MTIS Ex-smoker [employer] Phone: End: 03-23-2018 History of tobacco use Current smoker [employer] Phone: End: 03-23-2018 History of tobacco use Cigarette Smoker [employer] Phone: Start: 12-02-2021 End: 05-26-2024 Alcohol intake Current drinker of alcohol (finding) [employer] Phone: Start: 11-28-2021 History SDOH Alcohol Frequency 2 [employer] Phone: Start: 11-28-2021 History SDOH Alcohol Std Drinks 3 [employer] Phone: Start: 12-02-2021 History SDOH Alcohol Comment occ beer [employer] Phone: Start: 1945 Sex Assigned At Not on file [employer] Phone: Start: 11-18-2021 End: 04-20-2024 Exposure to SARS-CoV-2 (event) Not sure [employer] Phone: Start: 1945 Sex Assigned At Male [facility] Start: 01-29-2023 End: 07-30-2023 Tobacco use and exposure Smokeless tobacco non-user [facility] Work Phone: Start: 01-29-2023 Alcohol Comment occasionally [facility] Work Phone: Start: 06-04-2023 Tobacco smoking status NHIS Tobacco smoking consumption unknown [facility] Start: 06-04-2023 Alcohol Comment coffee daily [facility] NEGATED: Highlighted rowStart: JACKSONF History of tobacco use Passive smoker [facility] Medical Equipment Procedure Code Equipment Code Equipment Origin al Text Equipment Identifier Dates Capsule endoscopy, for patency of lumen evaluation Video capsule endoscopy system [id number] FDA Start: 10-20-2019 Femoral artery closure plug/patch, synthetic polymer [id number] [facility] Start: 03-31-2019 Clinical Notes 08-26-2021 to 05-26-2024 Marciano Hi DPM - 05/26/2024 1:40 PM VINCENTMocynthia Liz MD - 04/20/2024 2:00 PM ESTPatient InstructionsMarciano Hi DPM - 03/17/2024 11:50 AM ESTPatient InstructionsAttachments Note Date & Type Note Facility 05-26-2024 History of Present illness Narrative Patient: Shahrzad [...] has periodically been using prescribed or recommended quyk-bql-pkcimyo cream with negative improvement. Patient also states he had cold exposure for many years to his feet Patient has history of right foot drop secondary to spinal surgery in the past and refused AFO rx in the past. Allergies: No Known Allergies Past Medical History: Past Medical History: Diagnosis Date Diabetes ([facility]) Medications: Current Outpatient Medications: aspirin 81 MG [...] growth with thin shiny atrophic skin bilaterally Diminished amounts of Dry and scaly skin to bilateral feet and ankles VASC: Negative DP and negative PT pedal pulses NEURO: 5.07 [place] Nacho monofilament test diminished to digits and forefoot bilaterally 125Hz tuning fork diminished to 1st MPJ bilaterally ORTHO: Positive pain on palpation to toenails of the left 1,2,3,4,5 toes and right 1,2,3,4,5 toes +4/5dorsiflexion right ankle ASSESSMENT 1. Diabetes 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, unspecified whether fci insulin use ([facility]) 2. Pain due to onychomycosis of toenails [...] . Patient states that he will use mrla-qvy-espzvrp creams as necessary Marciano Hi DPM documented in this encounter [facility] 04-20-2024 History of Present illness Narrative Subjective Shahrzad Edgar is a 78 y.o. male Chief Complaint Follow-up HPI Patient is here for earlier follow-up. He is known to have a history of coronary artery disease, atrial fibrillation maintaining sinus rhythm with sotalol. He presented recently to the hospital with difficulty with speech and diagnosed with TIA. He was at [facility]. He underwent evaluation and was seen by the neurology team telehealth. The patient workup was benign and he was discharged home with recommendation to follow-up with me to discuss anticoagulation. Patient had a history of anemia and intolerance to anticoagulation in the past. He has declined to proceed with a Watchman device or a trial of resuming anticoagulation. He seems to recovered from his recent event. He denies chest pain, lightheadedness, dizziness or syncope. Assessment 1. Recent presentation with transient TIA. His neuro evaluation was negative patient on the review of the record from [place]. He was asked To see me to discuss anticoagulation again 2. Status post prior presentation with inferior wall myocardial infarction. Status post thrombectomy and balloon angioplasty to a small PLV branch. back in 2019. Patient describe functional class I. No recurrence of his symptoms 3. Persistent atrial fibrillation. No recent recurrence. Currently in sinus rhythm 4. High-risk medication in form of sotalol QTc interval is slightly prolonged but acceptable 5. Mildly overweight with BMI of 26 6. Hypertension controlled 7. Hyperlipidemia controlled recent lab noted and reviewed with him 8. Anemia was seen by hematology in the past 9. Reformed smoker 9. Previous history of stroke with no residual deficit. He recently was hospitalized with concern about recurrence for TIA. Workup was benign his previous workup noted and reviewed as per previous office visit Plan 1. I revisited the issue with anticoagulation with him at great length. We discussed resuming Eliquis versus Watchman device following lengthy discussion the patient elected to remain on aspirin. He understands there is increased risk of stroke considering his of atrial fibrillation and a prior cerebrovascular event. I estimated the risk in the range of 5 to 10%. Despite lengthy discussion the patient remained adamant about not considering Watchman device or anticoagulation 2. He was counseled regarding losing weight, exercise and dietary modification 3. I advised him to repeat his recent hospitalization record 4. I recommended to continue present medical regimen. As per patient choice 5. Risk of embolic event discussed with patient and at length he understood he only consent to aspirin therapy 6. I will see him back in 6 months Review of Systems All other systems reviewed and are negative. Vitals: 04/20/24 1345 BP: 96/58 BP Location: Left arm Patient Position: Sitting Pulse: 61 Weight: 90.3 kg (199 lb) Height: 1.854 m (6' 1 ) [...] (10 mg) once daily., Disp: , Rfl: nitroglycerin (Nitrostat) 0.4 mg SL tablet, Place 1 tablet (0.4 mg) under the tongue., Disp: , Rfl: sotalol (Betapace) 80 mg tablet, Take 1 tablet (80 mg) by mouth every 12 hours., Disp: , Rfl: Assessment/Plan 1. TIA (transient ischemic attack) 2. Single vessel coronary disease Follow Up In Cardiology 3. High risk medication use 4. Stenosis of right carotid artery 5. Persistent atrial fibrillation (Multi) ECG 12 Lead 6. Mixed hyperlipidemia 7. Essential hypertension 8. Cerebrovascular accident (CVA), unspecified mechanism (Multi) 9. Former smoker 10. BMI 26.0-26.9,adult Scribe Attestation By signing my name below, I, Shaina Martins LPN , Scribe attest that this documentation has been [...] discussion and plan. documented in this encounter [facility] Work Phone: 04-20-2024 Instructions Shaina Floyd LPN - 04/20/2024 2:00 PM EST Please bring all medicines, vitamins, and herbal supplements with you when you come to the office. Prescriptions will not be filled unless you are compliant with your follow up appointments or have a follow up appointment scheduled as per instruction of your physician. Refills should be requested at the time of your visit. BMI was above normal measurement. Current weight: 90.3 kg (199 lb) Weight change since last visit (-) denotes wt loss -8 lbs Weight loss needed to achieve BMI 25: 9.9 Lbs Weight loss needed to achieve BMI 30: -27.9 Lbs Provided instructions on dietary changes. 6 months Declines anticoagulation. documented in this encounter [facility] Work Phone: 03-17-2024 History of Present illness Narrative Patient: [...] has periodically been using prescribed or recommended wmmh-wzt-obcdxrn cream with negative improvement. Patient also states he had cold exposure for many years to his feet Patient has history of right foot drop secondary to spinal surgery in the past and refused AFO rx in the past. Allergies: No Known Allergies Past Medical History: Past Medical History: Diagnosis Date Diabetes ([facility]) Medications: Current Outpatient Medications: aspirin 81 MG [...] and negative PT pedal pulses NEURO: 5.07 [place] Nacho monofilament test diminished to digits and forefoot bilaterally 125Hz tuning fork diminished to 1st MPJ bilaterally ORTHO: Positive pain on palpation to nails 1 through 10 +4/5dorsiflexion right ankle ASSESSMENT 1. 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 Pain due to onychomycosis of toenails [...] . Patient states that he will use qvrl-lzy-tmjtgtz creams as necessary Marciano Hi DPM documented in this encounter [facility] 01-28-2024 History of Present illness Narrative Subjective [...] fibrillation. Last time he was back in [facility] but repeat EKG today he [...] Scribe Attestation By signing my name below, ICarline LPN, Scribboo attest that this documentation has been prepared [...] discussion and plan. documented in this encounter [facility] Work Phone: 01-28-2024 Instructions Carline [...] be sent through Care Everywhere.Heart Healthy Diet ([place])documented in this encounter [facility] Work Phone: 01-07-2024 History of [...] has periodically been using prescribed or recommended doug-mwt-soiiuua cream with minimal improvement. Patient also states he had cold exposure for many years to his feet Patient has history of right foot drop secondary to spinal surgery in the past and refused AFO rx in the past. Allergies: No Known Allergies Past Medical History: Past Medical History: Diagnosis Date Diabetes ([facility]) Medications: Current Outpatient Medications: aspirin 81 MG [...] and negative PT pedal pulses NEURO: 5.07 [place] Nacho monofilament test diminished to digits and [...] . Patient states that he will use ionu-ppi-otzwdiz creams as necessary Marciano Hi DPM documented in this encounter [facility] 07-30-2023 History of Present illness Narrative Subjective [...] Scribe Attestation By signing my name below, IShaina LPN, Scribe attest that this documentation has [...] discussion and plan. documented in this encounter [facility] Work Phone: 07-30-2023 Instructions Shaina [...] months with ekg documented in this encounter [facility] Work Phone: 01-29-2023 History of [...] in office today documented in this encounter [facility] Work Phone: 01-29-2023 Instructions Clyde [...] of your visit. documented in this encounter [facility] Work Phone: 06-05-2022 History of [...] try to retrieve retrieve his record from [place] [address] DO Work Phone: 12-03-2021 History of Present illness Narrative Images from the original note were not included. [employer] Air[employer] C[employer] Progress Note Date: 12/03/2021 Patient name: Shahrzad [...] with effusion, left PAF (paroxysmal atrial fibrillation) ([facility]) Anemia Atrial fibrillation with RVR (HCC) Primary hypertension Type 2 diabetes mellitus without complication, without long-term current use of insulin (HCC) COPD (chronic obstructive pulmonary disease) ([facility]) [id number] Score for Atrial Fibrillation Stroke Risk Risk Factors Component Value C CHF No 0 H HTN Yes 1 A2 Age >= 75 Yes, (76 y.o.) 2 D DM Yes 1 S2 Prior Stroke/TIA No 0 V Vascular Disease No 0 A Age 65-74 No, (76 y.o.) 0 Sc Sex male 0 [id number] Score 4 Score last updated 12/03/21 10:13 [...] Please call with further questions or concerns [place] Airset Caster [facility]. [phone] [facility] Neurology IN-PATIENT SERVICE [facility] Progress Note Date: 12/03/2021 Patient name: Shahrzad Edgar Date of admission: 11/28/2021 3:15 AM Account: [id number] Date of : 1945 PCP: No primary care provider on file. Room: [address] [place] [address] Code Status: Full Code Chief Complaint: Right [...] He is eager to be discharged to [facility]. Patient counseled regarding treatment follow-up plan, [...] temporal headache with dizziness. Initially evaluated at [facility] and later transferred to [facility] after CT head was done showing [...] Labs 12/02/21 0857 12/02/21 1201 12/02/21 1655 12/02/213 POCGLU 188* 197* 220* 164* No intake [...] ms QTc Calculation (Bazett) 516 ms R [place] 23 degrees T [place] 48 degrees POC Glucose Fingerstick Collection Time: [...] 1.07 (L) 1.10 - 3.70 k/uL Absolute [place] # 1.20 0.10 - 1.20 k/uL Absolute [...] Assessment : Primary Problem Cerebrovascular accident (CVA) ([facility]) Active Hospital Problems Diagnosis Date Noted Atrial fibrillation with RVR ([facility]) [I48.91] 12/02/2021 Priority: Medium Type 2 diabetes mellitus without complication, without long-term current use of insulin (HCC) [E11.9] 12/02/2021 Priority: Medium Primary hypertension [I10] 12/02/2021 Priority: Medium COPD (chronic obstructive pulmonary disease) ([facility]) [J44.9] 12/02/2021 Priority: Medium PAF (paroxysmal atrial fibrillation) ([facility]) [I48.0] 11/29/2021 Priority: Medium Anemia [D64.9] 11/29/2021 Priority: Medium Cerebrovascular accident (CVA) ([facility]) [I63.9] 11/28/2021 Priority: Medium Otitis media with [...] medical management PT/OT/ST Plan for discharge to [facility] today Follow-up further recommendations after discussing [...] not provided in a hospital setting. Jasmin Corraels MD 12/03/2021 8:49 AM Copy sent to Dr. Ware primary care provider on file. Associated attestation - Reymundo Tomas MD - 12/03/2021 7:38 PM EDT Attending Physician Statement I have discussed the case of Shahrzad Edgar including pertinent history and exam findings with the resident/ TRAP OPERATOR. I reviewed medications, clinical labs, x-rays and other diagnostic tests with the resident/ TRAP OPERATOR. I have seen and examined the patient and the lamas elements of the encounter have been performed by me. I agree with the assessment, plan and orders as documented by the resident or TRAP OPERATOR. Impression and Plan: Mr. Shahrzad Edgar is [...] from the original note were not included. [facility] Office: [phone] Darrius Mattson DO, Valente Kaur DO, Noel [...] Irby MD, Lewis See MD, Blanka Martin, LAURENCE, Nicky Gonzalez, LAURENCE, Pattie Vasquez, LAURENCE, Prem Potter, LAURENCE, Adrienne Domingo, MIYA, Marissa Hamilton, LAURENCE, Lida Soto, LAURENCE, Rosmery Bryan CNP, Cici Antoine, LAURENCE, Leslie Chen, LAURENCE, TIARRA SandersC, Kathy Wilder, LEONARDO, Janet Bar, MIYA, Triny Francois, LAURENCE, Mary Ortiz CNP, Sue Rivera CNP [facility] IN-PATIENT SERVICE [facility] Progress Note 12/03/2021 8:19 AM Name: Shahrzad Edgar Acct: [id number] Room: [facility]/0122-01 Day: 5 Admit Date: 11/28/2021 3:15 AM [...] 12/03/21 0819 Labs: Hematology: Recent Labs 12/01/2135112/03/21 040 WBC 15.0* 11.0 RBC 5.11 4.25 HGB [...] results found for: POCPH, PHART, PH, POCPCO2, LRG8OOA, PCO2, POCPO2, PO2ART, PO2, POCHCO3, VFD9NHN, HCO3, NBEA, PBEA, BEART, BE, THGBART, THB, ADL5MBJ, HEED9NHB, E7IFXHXJ, O2SAT, FIO2 Lab Results Component Value Date/Time [...] Modified POA * (Principal) Cerebrovascular accident (CVA) ([facility]) 11/30/2021 Yes Otitis media with effusion, left 11/28/2021 Yes PAF (paroxysmal atrial fibrillation) ([facility]) 12/02/2021 Yes Anemia 11/29/2021 Yes Atrial fibrillation with RVR ([facility]) 12/02/2021 No Primary hypertension 12/02/2021 Yes Type 2 diabetes mellitus without complication, without long-term current use of insulin ([facility]) 12/02/2021 Yes COPD (chronic obstructive pulmonary disease) ([facility]) 12/02/2021 Yes Plan: Middle ear mastoid effusion: [...] DO 12/03/2021 8:19 AM Physical Therapy Facility/Department: [address] NEURO ICU Daily Treatment Note NAME: [...] verbally reminded to do so; able to lead infrastructure architect margie stedy with max A+1, again leans [...] Static Standing Balance Exercises: [facility] with mod to max A+1, frequent cues [...] with least restrictive AD Additional Goals?: No Retail Event Assistant Goals Additional Goals?: No Education Patient Education Education Given To: Patient Education Provided: Role of Therapy;Plan of Care;Precautions;Transfer Training;Fall Prevention Strategies Education Method: Demonstration;Verbal;Teach Back Barriers to Learning: Cognition Education Outcome: Continued education needed Therapy Time Individual Concurrent Group Co-treatment Time In 1411 Time Out 1521 Minutes 70 Timed Code Treatment Minutes: 47 Minutes Zach Thakur PT Speech Language Pathology Speech Language Pathology [facility] Cognitive and Speech Treatment Note Date: 12/02/2021 Patient s Name: Shahrzad Edgar Diagnosis: Patient Active Problem List Diagnosis Code Cerebrovascular accident (CVA) ([facility]) I63.9 Otitis media with effusion, left H65.92 History of atrial fibrillation Z86.79 Anemia D64.9 Pain: 0/10 Cognitive Treatment Treatment time: 2782-7576 Subjective: [x] Alert [x] Cooperative [] Confused [] Agitated [] Lethargic Objective/Assessment: Recall: Delayed Recall - Associated Lists: 11/29 independently Organization: Category Members - [place]: 02/01 increased to 03/03 with mod verbal cue Problem Solving/Reasoning: Word Deduction: increased to 16 with mod verbal cue Multiple Uses for Objects: 09/27 not increased with max verbal cue Speech: [...] recommended at discharge. Completed by: Sheri Serna Hand Presser Clinician Cosigned By: Ayla White M.S.CCC/FOOD RUNNER [employer] Caster Documentation Note Admission Dx: Brain mass [G93.89] Past Medical History: has a past medical history of Arthritis, COPD (chronic obstructive pulmonary disease) (HCC), Diabetes mellitus (HCC), History of blood transfusion, and Hypertension. Previous Testing: ECHO 11/30/2021: EF 54%, negative bubble study, no valvular abnormalities. Previous office/hospital visit: None JUAN Toneyo Airset Caster NEUROLOGY INPATIENT PROGRESS NOTE 12/01/2021 Subjective: Shahrzad [...] not help. Patient was initially evaluated at [facility] and noted to have left upper [...] prior to transfer over. Upon arrival at [place], patient's blood pressure was normotensive. Evaluated by [...] condition Data: Lab Results: CBC: Recent Labs 11/29/2146 11/30/2181012/01/21 035 WBC 19.0* 13.7* 15.0* HGB 13.6 13.9 15.6 PLT 250 230 235 BMP: Recent Labs 11/29/2146 11/30/21 0811 09/11/22 0352 NA 133* 134* 132* K 4.4 [...] started at that time. Continue on Statin PT/OT/FOOD RUNNER Urinary retention - will obtain urology consulation [...] the note as needed. Allan Pemberton DO 12/01/2021 9:00 PM Echo was completed at the bedside. Physical Therapy Facility/Department: [address] NEURO ICU Daily Treatment Note Name: [...] with least restrictive AD Additional Goals?: No Retail Event Assistant Goals Additional Goals?: No Education Patient Education [...] who was admitted as a transfer from [facility] on 11/28/2021 for R temporal headache. Patient reported he had developed right temporal headache and dizziness on the day of arrival. Excedrin did not help. He was seen by his email campaign manager and was told that his BP was elevated; he was started on lisinopril 5 mg daily. He was initially evaluated at [facility]. Patient was noted to have left [...] x1 prior to be transferred to [facility] for higher level of care. Patient was [...] to ensure the accuracy of this automated dry cleaning supervisor, some errors in dry cleaning supervisor may have occurred. Associated attestation - Allan [...] needed. Allan Pemberton DO 11/30/2021 11:36 PM 2215 new orders received Mag and extra strength tylenol to treat headache clarified and admin per orders Irregular hr noted this am Pt has a headache 9/10 pain, per pt tylenol ordered doesn't help at all. Neuro MD notified Occupational Therapy Facility/Department: [address] NEURO ICU Occupational Therapy Initial Assessment [...] use in appartment) Transfer Assistance: Independent Active Renewable Energy Project Manager: Yes Mode of Transportation: Car Occupation: Retired [...] visual / tactile).) Hearing Hearing: Exceptions to WF Hearing Exceptions: Hard of hearing/hearing concerns Cognition [...] Minutes: 24 Minutes (ADL + TherAct) MUNDO Richey, ELIANR/L Physical Therapy Facility/Department: [address] NEURO ICU Physical Therapy Initial Assessment [...] exact time). He was initially evaluated at [facility] Patient was reported to have been at email campaign manager earlier today, and BP was elevated, but [...] did have purulent material. CT head from outlying facility showed area of hypoattenuation in right [...] use in appartment) Transfer Assistance: Independent Active Renewable Energy Project Manager: Yes Mode of Transportation: Car Occupation: Retired [...] sitting EOB for ~13 mins. AM-PAC Score AM-PAC Inpatient Mobility Raw Score : 9 (11/29/211544) AM-PAC Inpatient T-Scale Score : 30.55 (11/29/211544) Mobility Inpatient CMS 0-100% Score: 81.38 (11/29/211544) Mobility Inpatient CMS G-Code Modifier : CM (11/29/211544) Goals Short Term Goals Time Frame for [...] with least restrictive AD Additional Goals?: No Retail Event Assistant Goals Additional Goals?: No Education Patient Education [...] Patient's name: Shahrzad Edgar Patient's account/billing number: [id number] Patient's Date of : 1945 Age: 76 y.o. Date of Admission: 11/28/2021 3:15 AM Length of stay during current admission: 1 Primary Care Physician: No primary care provider on file. Code Status: Full Code Mode of physician to physician communication: [] Via telephone [x] In person Date and time of sign-out: 11/29/2021 2:50 PM Accepting Neurology MOTOR COACH OPERATOR: Adina Do NP Accepting team's attending: Dr. [...] PM Speech Language Pathology Speech Language Pathology [facility] Dysphagia Treatment Note Date: 11/29/2021 Patient [...] Provided with Soft Solids, Puree, Thin and Spry thick trials. Pt. With no overt s/s [...] therapy recommended at discharge. Treatment completed by: ROBBY Hall, M.S. CCC-FOOD RUNNER Speech Language Pathology Speech Language Pathology [facility] Cognitive and Speech Treatment Note Date: [...] 8/9 with repetitions Organization: Category Members - [place]: 27/36 increased to 36/36 with min-mod verbal [...] recommended at discharge. Completed by: Sheri Serna Hand Presser Clinician Cosigned By: Ayla White M.S.CCC/FOOD RUNNER Images from the original note were not [...] Name: Shahrzad Edgar Patient : 1945 Room/Bed: [facility]0122-01 Code Status: Full Code Allergies: Allergies Allergen [...] Guevara Kaur DO Neuro Critical Care Pager [phone] 11/29/2021 6:48 AM Associated attestation - Neal [...] prophylaxis. Maintain SBP < 160. Incentive spirometry. FOOD RUNNER eval. PT/OT. Insulin sliding scale. Stepdown. Discharge planning. I independently reviewed all labs, imaging and EKG tracings Speech Language Pathology Facility/Department: [address] NEURO ICU CLINICAL BEDSIDE SWALLOW EVALUATION [...] exact time). He was initially evaluated at [facility]. Patient was reported to have been at email campaign manager earlier today, and BP was elevated, but [...] did have purulent material. CT head from [facility] showed area of hypoattenuation in right [...] prior to transfer to Neuro ICU at [place]. Pain: Pain Assessment Pain Assessment: 0-10 Pain [...] with partial PO only Treatment Plan Requires FOOD RUNNER Intervention: Yes D/C Recommendations: Ongoing speech therapy [...] Patient Education Response: Needs reinforcement Therapy Time [id number] ROBBY Hall 11/28/2021 3:02 PM Speech Language Pathology Facility/Department: [address] NEURO ICU Initial Speech/Language/Cognitive Assessment NAME: [...] exact time). He was initially evaluated at [facility]. Patient was reported to have been at email campaign manager earlier today, and BP was elevated, but patient unable to state how elevated. No improvement with Excedrin. Patient denies any other blood thinners aside from aspirin. At [facility] patient noted to have clear [...] did have purulent material. CT head from [facility] showed area of hypoattenuation in [...] prior to transfer to Neuro ICU at [place]. Pain: Pain Assessment Pain Assessment: 0-10 Pain [...] noted deficits. Education provided. Recommendations: Recommendations Requires FOOD RUNNER Intervention: Yes Patient Education: yes Patient Education [...] With: Friend(s) Type of Home: Apartment Active Renewable Energy Project Manager: Yes Vision Vision: Within Functional Limits Hearing [...] 1058 Minutes 12 Completed by: Sheri Serna Hand Presser Clinician Cosigned By: Ayla White M.S.CCC/FOOD RUNNER [facility] Pharmacokinetic Monitoring Service - Vancomycin Shahrzad [...] 6:35 AM documented in this encounter [facility] Work Phone: 12-02-2021 Hospital Discharge instructions Yair Schofield RN - 12/02/2021 2:45 PM EDT Continuity of Care Form Patient Name: Shahrzad Edgar : 1945 Admit date: 11/28/2021 Discharge date: 12/03/2021 Code Status Order: Full Code Advance Directives: Admitting Physician: Allan Pemberton DO PCP: No primary care provider on file. Discharging Nurse: yair Dischmanny Hospital Unit/Room#: 0122/0122-01 Discharging Unit Phone Number: [phone] Emergency Contact: Extended Emergency Contact Information Primary Emergency Contact: nadine allen Relation: Other Preferred language: Com[place]an Electronics Hardware Design Engineer needed? No Past Surgical History: No past surgical history on file. Immunization History: Immunization History Administered Date(s) Administered COVID-19, PFIZER PURPLE top, DILUTE for use, (age 12 y+), 30mcg/0.3mL 05/21/2020, 06/12/2020, 01/15/2021 Active Problems: Patient Active Problem List Diagnosis Code Cerebrovascular accident (CVA) ([facility]) I63.9 Otitis media with effusion, left H65.92 [...] Assisted Dressing Assisted Toileting Independent Feeding Independent Supervisor Plasma Independent Med Delivery whole Wound Care Documentation [...] Dysphagia soft Routes of Feeding: Oral Liquids: Spry Thick Liquids Daily Fluid Restriction: 1500 Last [...] Readmission: 13 Discharging to Facility/ Agency Name: [facility] Address: Phone: Fax: Dialysis Facility (if applicable) Name: Address: Dialysis Schedule: Phone: Fax: Orientation And Mobility Specialist/Head Well Puller signature: PHYSICIAN SECTION Prognosis: {Prognosis:9817717034} Condition at Discharge: { Patient Condition:444029127} Rehab Potential (if transferring to Rehab): {Prognosis:7015908414} Recommended Labs or Other Treatments After Discharge: Physician Certification: I certify the above information and transfer of Shahrzad Edgar is necessary for the continuing treatment of the diagnosis listed and that he requires {Admit to Appropriate Level of Care:01341} for {GREATER/LESS:349958624} 30 days. Update Admission H&P: {CHP DME Changes in HandP:025410799} PHYSICIAN SIGNATURE: The following attachments cannot be sent through Care Everywhere.Statins (Comoran)Ischemic Stroke: General Info (Comoran)Stroke: Symptoms: General Info (Comoran)Diabetes: Heart Attack and Stroke Risk: General Info (Comoran)documented in this encounter [facility] [employer] Work Phone: 09-17-2021 Evaluation note Encounter Date Diagnosis Assessment Notes Aug, Left hand pain (ICD-10 - M79.642) Aug, Closed displaced fracture of proximal phalanx of left little finger with routine healing, subsequent encounter (ICD-10 - S62.617D) Radiographs reviewed with patient today. Discussed with patient to work on range of motion exercises [facility] Other 06-09-2022 Evaluation note* Encounter Date Diagnosis [...] and elevate to decrease pain and swelling. [facility] Other 06-06-2022 NotePROCEDURE: XR HAND LT MIN 3V COMPARISON: None. HISTORY: Pain FINDINGS: BONES:Subtle contour deformity identified at the base of the fifth proximal phalanx. No dislocation. Mild degenerative changes. SOFT TISSUES:Negative. No visible soft tissue swelling. EFFUSION:None visible. OTHER: Negative. IMPRESSION: Suspected nondisplaced fracture base of the fifth proximal phalanx Electronically authenticated by: REINA GO Date: 2021-08-26 10:45[facility] Diagnosis Cerebrovascular accident (CVA), unspecified mechanism (HCC) Hyponatremia Hyposmolality and/or hyponatremia Otitis media with effusion, left PAF (paroxysmal atrial fibrillation) ([facility]) Atrial fibrillation Anemia Anemia, unspecified Atrial fibrillation with RVR (HCC) Atrial fibrillation Type 2 diabetes mellitus without complication, without long-term current use of insulin (HCC) Primary hypertension Unspecified essential hypertension COPD (chronic obstructive pulmonary disease) (HCC) Chronic airway obstruction, not elsewhere classified Hemorrhagic stroke (HCC) Intracerebral hemorrhage documented in this encounter [facility] Work Phone: evaluation noteNo assessment information available [facility] Work Phone: Evaluation note* Diagnosis Single vessel coronary disease- Primary Essential hypertension Unspecified essential hypertension Mixed hyperlipidemia Persistent atrial fibrillation (CMS/HCC) Atrial fibrillation Anemia, unspecified type BMI 28.0-28.9,adult documented in this encounter [facility] Work Phone: Evaluation note* Diagnosis High risk medication use- Primary Single vessel coronary disease Essential hypertension Unspecified essential hypertension Mixed hyperlipidemia Persistent atrial fibrillation (Multi) Atrial fibrillation BMI 28.0-28.9,adult Cerebrovascular accident (CVA), unspecified mechanism (Multi) Anemia, unspecified type Former smoker Personal history of tobacco use, presenting hazards to health documented in this encounter [facility] Work Phone: Evaluation note* Diagnosis Xerosis cutis- Primary Other specified disease of sebaceous glands Onychomycosis Dermatophytosis of nail Pain due to onychomycosis of toenails of both feet Right foot drop Other acquired deformity of ankle and foot documented in this encounter [facility] HealthcareEvaluation note* Diagnosis Persistent atrial fibrillation (Multi)- Primary Atrial fibrillation Single vessel coronary disease Mixed hyperlipidemia Essential hypertension Unspecified essential hypertension Anemia, unspecified type Cerebrovascular accident (CVA), unspecified mechanism (Multi) High risk medication use Former smoker Personal history of tobacco use, presenting hazards to health BMI 27.0-27.9,adult documented in this encounter [facility] Work Phone: Evaluation note* Diagnosis Xerosis cutis- Primary Other specified disease of sebaceous glands Diabetes 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, unspecified whether fci insulin use (CMS/HCC) Pain due to onychomycosis of toenails of both feet Right foot drop Other acquired deformity of ankle and foot documented in this encounter [facility] HealthcareEvaluation note* Diagnosis TIA (transient ischemic attack)- Primary Unspecified transient cerebral ischemia Single vessel coronary disease High risk medication use Stenosis of right carotid artery Occlusion and stenosis of carotid artery without mention of cerebral infarction Persistent atrial fibrillation (Multi) Atrial fibrillation Mixed hyperlipidemia Essential hypertension Unspecified essential hypertension Cerebrovascular accident (CVA), unspecified mechanism (Multi) Former smoker Personal history of tobacco use, presenting hazards to health BMI 26.0-26.9,adult documented in this encounter [facility] Work Phone: History general Narrative - Reported* Type Description Date Medical History MS Medical History DM Medical History HTN Surgical History cholecystectomy Surgical History back surgery Surgical History elbow surgery Surgical History cataracts, bilaterally Surgical History T & A Hospitalization History see above Hospitalization History MS -2019 [facility] Other History of Present illness Narrative* Is [...] advised to repeat lab work as ordered [facility] DO Work Phone: History of [...] 5. Reviewed his recent lab with him -[facility] DO Work Phone: History [...] reports he was in the hospital in [place] in [place] after a stroke. Hedoes not know if [...] atypical chest pain work-up was benign cardiac baldears * 2. Persistent atrial fibrillation appears now back in [place]- with RVR. He had a history of [...] 4. I to retrieve his record from [place] * 5. I advised the patient TO bring his medication with him and tried to write things down concerninghis memory does not appears to be good and he has no good social support system -[facility] DO Work Phone: Summary [...] Diagnoses / Procedures Referred By Julio C day Referred To Contact Diagnoses Persistent atrial fibrillation (CMS/HCC) Procedures ECG 12 Lead Veronica Liz MD [address] [facility] [address], [address] [address] Referral ID Status Reason Start Date Expiration Date V isits Requested Visits Authorized [id number] Pending Review 01/29/2023 01/29/2024 1 1 Specialty Diagnoses / Procedures Referred By Julio C day Referred To Contact Cardiology Diagnoses Single vessel coronary disease Essential hypertension Procedures Follow Up In Cardiology Veronica Liz MD [address] [facility] 2, [place] [address] [place] [id number] Veronica Liz MD [address], [address] [place] [address] Referral ID Status Reason Start Date Expiration Date V isits Requested Visits Authorized [id number] Authorized 01/29/2023 01/29/2024 1 1 Specialty Diagnoses / Procedures Referred By Contac t Referred To Contact Radiology Diagnoses Cerebrovascular accident (CVA), unspecified mechanism (HCC) Procedures CT HEAD WO CONTRAST Alexander Grey, AFTER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 [address] [place] [address] [place] [address] Referral ID Status Reason Start Date Expiration Date Visits Re quested Visits Authorized [id number] Open 12/19/2021 12/19/2022 1 1 Additional Source Comments (unrecognized sect ion and content) No Status Records FoundNo Status Records FoundNo Status Records FoundNo Status Records FoundNo Status Records FoundNo Status Records FoundNo Status Records FoundNo Status Records Found INFORMATION SOURCE (unrecogn ized section and content) DATE CREATED AUTHOR 06/11/2018 [facility] Healthcare DATE CREATED AUTHOR AUTHOR'S ORGANIZ ATION 12/17/2021 [facility] DATE CREATED AUTHOR AUTHOR'S ORGANIZ ATION 05/18/2022 [facility] DATE CREATED AUTHOR AUTHOR'S ORGANIZ ATION 06/06/2022 [facility] DATE CREATED AUTHOR AUTHOR'S ORGANIZ ATION 08/07/2022 [facility] DATE CREATED AUTHOR AUTHOR'S ORGANIZ ATION 04/11/2024 [facility] DATE CREATED AUTHOR AUTHOR'S ORGANIZ ATION 04/22/2024 [facility] DATE CREATED AUTHOR AUTHOR'S ORGANIZ ATION 08/18/[address] [facility] dical Specialists EPIC REASON FOR VISIT (unrecogniz ed section and content) Reason Comments Follow-up 6 month Specialty Diagnoses / Procedures Referred By Contac t Referred To Contact Diagnoses Persistent atrial fibrillation (CMS/HCC) Procedures ECG 12 Lead Veronica Liz MD [address] [facility] [address], [address] [place] [address] Referral ID Status Reason Start Date Expiration Date V isits Requested Visits Authorized [id number] Pending Review 01/29/2023 01/29/2024 1 1 Reason Comments Follow-up 6 months Specialty Diagnoses / Procedures Referred By Contac t Referred To Contact Cardiology Diagnoses Single vessel coronary disease Essential hypertension Procedures Follow Up In Cardiology Veronica Liz MD [address] [facility] 2, [place] [address] [place] [address] Veronica Liz MD [address] [facility] [address], [address] [address] Referral ID Status Reason Start Date Expiration Date V isits Requested Visits Authorized [id number] Authorized 01/29/2023 01/29/2024 1 1 Reason Comments Toenail Care Non DM Nails Specialty Diagnoses / Procedures Referred By Contac t Referred To Contact Cardiology Diagnoses Persistent atrial fibrillation (Multi) Procedures Follow Up In Cardiology Veronica Liz MD [address] [facility] [address], [address] [address] Phone: tel: fax: Veronica Liz MD [address] [place] [address] [address], [address] [address] Phone: tel: fax: Referral ID Status Reason Start Date Expiration Date V isits Requested Visits Authorized [id number] Authorized 07/30/2023 07/29/2024 1 1 Reason Comments Toenail Care Non dm nail care Reason Comments Follow-up [facility] 04/06 TIA expressive aphasia Specialty Diagnoses / Procedures Referred By Contac t Referred To Contact Diagnoses Persistent atrial fibrillation (Multi) Procedures ECG 12 Lead Veronica Liz MD [address] [facility] 2, [address] [address] Phone: tel: fax: Referral ID Status Reason Start Date Expiration Date V isits Requested Visits Authorized [id number] Authorized 04/20/2024 04/20/2025 1 1 Ordered Prescriptions (unrec ognized section and content) [...] filter. 1151 (New Bag - Provider: Huang Grurola RN)1201 (Stopped - Provider: Huang Gurrola RN) amiodarone (CORDARONE) tablet 200 mg(Linked Group 1) 200 mg, Oral, 2 TIMES DAILY, 10 doses, First dose on Thu12/03/21 at 1100, Last dose on 12/07/21 at 2100 1123 (Given - Provider: Little Treadwell, JUAN)2253 (Given - Provider: Jono Serrano RN) 0847 (Given - Provider: Yair Schofield RN)2100 (Due) amiodarone (CORDARONE) tablet 200 mg(Linked Group [...] 2100, Until Discontinued 2053 (Given - Provider: Jnoo Serrano RN) 2020 (Given - Provider: Jono Serrano RN) 2099 (Due) cefdinir (OMNICEF) capsule 300 mg 300 mg, Oral, EVERY 12 HOURS SCHEDULED (2 times per day), 10 doses, First dose on 12/02/21 at 2100, Last dose on Thu12/07/21 at 0900, Antimicrobial Indications: Head and Neck Infection 2053 (Given - Provider: Jono Serrano RN) 0848 (Given - Provider: Little Treadwell RN)2020 (Given - Provider: Jono Serrano RN) 0847 (Given - Provider: Yair Schofield, JUAN)2099 (Due) enoxaparin Sodium (LOVENOX) injection 30 mg 30 mg, SubCUTAneous, 2 TIMES DAILY, First dose on Thu11/29/21 at 1030, Until Discontinued, Indication of Use: Prophylaxis-DVT/PE 42 (Given - Provider: Huang Gurrola RN)2053 (Given - Provider: Jono Serrano RN) 0847 (Given - Provider: Little Treadwell RN)2020 (Given - Provider: Jono Serrano RN) 0846 (Given - Provider: Yair Schofield, JUAN)2099 (Due) insulin lispro (HUMALOG) injection vial 0-16 [...] Reason: Order parameters not met - Comment: [phone] (Not Given - Provider: Huang Gurrola RN - Reason: Order parameters not met)1800 (Given - Provider: uHang Gurrola RN) 0002 (Not Given - Provider: [...] RN) 0847 (Given - Provider: Little Treadwell RN)202 (Given - Provider: Jono Serrano RN) 0847 (Given - Provider: Yair Schofield RN)2100 (Due) ofloxacin (OCUFLOX) 0.3 % solution 5 drop (COMPLETED) 5 drop, Left Ear, DAILY, 5 doses, First dose (after last modification) on Thu11/30/21 at 0900, Last dose on Thu12/04/21 at 0900 0943 (Given - Provider: Huang Gurrola RN) 0848 (Given - Provider: Little Treadwell, RN) 0847 (Given - Provider: Yair Schofield, RN) tamsulosin (FLOMAX) capsule 0.4 mg 0.4 mg, Oral, DAILY, First dose on Thu12/01/21 at 2100, Until Discontinued, Do not crush or break. 0936 (Given - Provider: Huang Gurrola RN) 0847 (Given - Provider: Little Treadwell, JUAN) 0847 (Given - Provider: Yair Schofield, RN) Continuous Medication Order 12/02/2021 12/03/2021 12/04/2021 [...] Serrano RN) 1121 (Stopped - Provider: Little Treadwell RN) PRN Medication Order 12/02/2021 12/03/2021 12/04/2021 acetaminophen (TYLENOL) tablet 650 mg 650 mg, Oral, EVERY 4 HOURS PRN, Starting on Kimmie 11/28/21 at 0317, Until Discontinued, Pain Mild (1-3), Fever, Fever >100.5 (38 C), Maximum dose of acetaminophen is 4000 mg from all sources in 24 hours. 0638 (Given - Provider: Charo Rudd RN) 0123 (Given - Provider: Jono Serrano, RN)0846 (Given - Provider: Little Treadwell RN)2253 (Given - Provider: Jono Serrano RN) 0735 (Given - Provider: Yair Schofield, RN)1223 (Given - Provider: Yair Schofield, RN) dextrose 10 % infusion IntraVENous, at 100 [...] g (4 tablet), Oral, PRN, Starting on Thu11/28/21 at 0752, Until [...] HR >140 0307 (Given - Provider: Charo Rudd, JUAN) ondansetron (ZOFRAN) injection 4 mg(Linked Group 3) [...] 1100, Last dose on 12/07/21 at 2100 Followed by amiodarone (CORDARONE) tablet 200 mgJump to med 200 mg, Oral, DAILY, First dose on Thu12/08/21 at 0900, Until Discontinued Group 2: dextrose bolus 10% 125 mLJump to med 125 mL, IntraVENous, at 937.5 mL/hr, Administer over 8 Minutes, PRN, Other, Blood glucose 40 - 69 mg/dL and patient NOT ALERT or NPO, Starting on Thu11/28/21 at 0752
Repeat blood glucose in 15 [...] patient NOT ALERT or NPO, Starting on Thu11/28/21 at 0752
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 Attributed Provider 03/23/23 Zachariah Ochoa MD [address] [facility] [place] [address] PCP - General Family Medicine 04/20/24 FOR RECORDS PERTAINING TO PATIENTS WHO ARE [...] BE BASED ON THE PRIMARY CLINICAL RECORDS. [employer] provides no warranty or guarantee of the accuracy or completeness of information in this document.
--- NOTE | 2024-08-22 02:51 | ED_ITS ---
HPI HPI - General Adult General Chief complaint: Dizziness Stated complaint: FALL, DIZZY Time Seen by Provider: 08/22/24 02:39 Source: patient Mode of arrival: ambulance Limitations: no limitations History of Present Illness HPI narrative: patient up to get some H20. [place] a little dizzy and reached for something to balance himself but was not successful and fell on his right side. Injured right elbow and buttocks. No leg weakness but does have chronic right foot drop. no lower extremity weakness Related Data Home Medications ?Medication ?Instructions ?Recorded ?Confirmed atorvastatin 80 mg tablet 80 mg PO DAILY 03/02/2305/17 nitroglycerin 0.4 mg sublingual 0.4 mg sublingual Q5M PRN chest 08/22/24 tablet pain Previous Rx's ?Medication ?Instructions ?Recorded aspirin 81 mg tablet,delayed 81 mg PO QD #30 tabs 09/20 08/13 release lisinopril 10 mg tablet 5 mg (1/2 x 10 mg) PO DAILY #30 10/05/23 tabs sotalol 80 mg tablet 80 mg PO BID #60 tabs Allergies Allergy/AdvReac Type Severity Reaction Status Date / Time coconut Allergy Intermediate Vomiting Verified 08/22/24 02:33 Opioid HPI Opioid Management Most Recent Opioid Data: Last Pain Scale 6 Today, 02:40 Last ED Pain Assessment Today, 02:40 Last ORT Total Score 0 04/05/24, 11:18 Last ORT Risk Category Low Risk 04/05/24, 11:18 Ur Phencyclidine Scrn, (NEGATIVE) Negative , 23:51 Review of Systems ROS Status of ROS 10 or more systems reviewed and unremark able except as noted in history and below [facility] Medical History (Updated 08/22/24 @ 05:27 by Chevy Wood MD) COPD (chronic obstructive pulmonary disease) ?J44.9 - Chronic obstructive pulmonary disease, unspecified (ICD-10) History of stroke ?Z86.73 - Personal history of transient ischemic attack (TIA), and cerebral infarction without residual deficits (ICD-10) Acute metabolic encephalopathy ?G93.41 - Metabolic encephalopathy (ICD-10) Generalized weakness ?R53.1 - Weakness (ICD-10) Foot drop, bilateral ?M21.371 - Foot drop, right foot (ICD-10) ?M21.372 - Foot drop, left foot (ICD-10) Hyperlipemia ?E78.5 - Hyperlipidemia, unspecified (ICD-10) Past heart attack ?I25.2 - Old myocardial infarction (ICD-10) Hypertension ?I10 - Essential (primary) hypertension (ICD-10) CVA (cerebral vascular accident) ?I63.9 - Cerebral infarction, unspecified (ICD-10) Surgical History Hx of cholecystectomy ?Z90.49 - Acquired absence of other specified parts of digestive tract (ICD- 10) History of back surgery ?Z98.890 - Other specified postprocedural states (ICD-10) Family History Father Family history of COPD (chronic obstructive pulmonary disease) Mother Family history of cancer Alzheimer dementia Social History Within the past year, how often did you have a drink containing alcohol: 2-4 times a month Within the past year, how many standard drinks containing alcohol did you have on a typical day: 1 or 2 Within the past year, how often did you have six or more drinks on one occasion: never Total score: 0 Score interpretation: A score less than 4 is consistent with normal alcohol consumption. Smoking status: Former smoker Second hand tobacco smoke exposure: No Non-prescribed substance use: denies use Previous occupational history: retired Known occupational exposures/hazards: No Highest level of school completed/degree received: GED or equivalent Are you now , , , , never or living with a partner: living with partner In a typical week, how many times do you talk on the telephone with family, friends, or neighbors: 3 or more times per week How often do you get together with friends or relatives: 3 or more times per week How often do you attend mormonism or christian services: never Do you belong to any clubs or organizations such as mormonism groups unions, fraternal or athletic groups, or school groups: no Total score: 2 Score interpretation: A score of greater than or equal to 2 indicates the lowest level of social isolation. Little interest or pleasure in doing things: not at all Feeling down, depressed, or hopeless: not at all Feel stressed/tense/nervous/anxious/difficulty sleeping: not at all Do you think of yourself as: straight/heterosexual Gender Identity: male Exam Constitutional Vital Signs, click to edit/add: Last Vital Signs Temp 98.1 F 08/22/24 02:27 Pulse 94 H 08/22/24 05:20 Resp 19 08/22/24 05:20 BP 175/81 H 08/22/24 02:30 Pulse Ox 95 08/22/24 05:20 O2 Del Method Room Air 08/22/24 02:42 Common normals: no apparent distress, average body habitus, oriented x3, no limitations, healthy appearing and well nourished HENMT Common normals: normocephalic and head/scalp atraumatic Eye Common normals: PERRL and EOMs intact bilaterally Neck & C-Spine Common normals: full ROM Respiratory Common normals: normal respiratory effort, no retractions, no use of accessory muscles and clear to auscultation bilaterally Cardio Common normals: regular rate, regular rhythm, S1 normal heart sound and S2 n ormal heart sound GI Common normals: Normal to inspection, nondistended, normoactive bowel sounds present, soft to palpation and non-tender Back & Pelvis Other: right hip/buttocks tenderness Extremity Other: well healed incision right elbow. no obvious swelling Neuro Common normals: oriented x3, CN's II-XII intact bilaterally, moves all extremities and no focal motor deficits Psych Appearance: grossly normal Course Vital Signs Vital signs: Vital Signs Temperature 98.1 F 08/22/24 02:27 Pulse Rate 102 H 08/22/24 02:27 Respiratory Rate 16 08/22/24 02:27 Blood Pressure 175/81 H 08/22/24 02:27 Pulse Oximetry 99 08/22/24 02:27 Oxygen Delivery Method Room Air 08/22/24 02:27 Temperature 98.1 F 08/22/24 02:27 Pulse Rate 94 H 08/22/24 05:20 Respiratory Rate 19 08/22/24 05:20 Blood Pressure 175/81 H 08/22/24 02:30 Pulse Oximetry 95 08/22/24 05:20 Oxygen Delivery Method Room Air 08/22/24 02:42 Medical Decision Making [facility] Narrative Medical decision making narrative: patient fell at home injuring right elbow and right hip/buttocks. . denies striking his head. xrays of right hip and elbow without fractures. Patient informed of diagnosis of contusion and discharged home Lab Data Labs: Lab Results 08/22/24 Range/Units 02:47 WBC 7.2 (4.0-11.0) 10^3/uL RBC 3.41 L (4.70-6.10) 10^6/uL Hgb 11.7 L (14.0-18.0) g/dL Hct 34.1 L (42.0-54.0) % MCV 100.0 H (80.0-94.0) fL MCH 34.3 H (25.9-34.0) pg MCHC 34.3 (29.9-35.2) g/dL RDW 15.7 H (11.0-15.0) % Plt Count 255 (150-450) 10^3/uL MPV 9.9 (9.5-13.5) fL Neut % (Auto) 61.9 (43.0-75.0) % Lymph % (Auto) 24.1 (20.5-60.0) % [place] % (Auto) 8.1 (1.7-12.0) % Eos % (Auto) 4.7 (0.9-7.0) % Baso % (Auto) 0.4 (0.2-2.0) % Neut # (Auto) 4.4 (1.4-6.5) 10^3/uL Lymph # (Auto) 1.7 (1.2-3.8) 10^3/uL [place] # (Auto) 0.6 (0.3-0.8) 10^3/uL Eos # (Auto) 0.3 (0.0-0.7) 10^3/uL Baso # (Auto) 0.0 (0.0-0.1) 10^3/uL Abs Immat Gran (auto) 0.06 H (0.00-0.03) 10^3/uL Imm/Tot Granulo (auto) 0.8 H (0.0-0.5) % Sodium 139 (136-145) mmol/L Potassium 4.0 (3.5-5.1) mmol/L Chloride 102 (98-107) mmol/L Carbon Dioxide 29.9 (21.0-32.0) mmol/L Anion Gap 11.1 BUN 16.0 (7.0-18.0) mg/dL Creatinine 1.48 H (0.70-1.30) mg/dL Est GFR ( Amer) 56 L (>=60 mL/min/1.73m^2) Est GFR (Non-Af Amer) 46 L (>=60 mL/min/1.73m^2) BUN/Creatinine Ratio 10.8 Glucose 104 (74-106) mg/dL Calcium 8.9 (8.5-10.1) mg/dL Discharge Plan Discharge Chief Complaint: Dizziness Clinical Impression: Contusion of elbow, right, Contusion of hip, right Patient Disposition: Home, Self-Care Condition: Good Mode of Transportation: Private Vehicle Prescriptions / Home Meds: No Action atorvastatin 80 mg tablet 80 mg PO DAILY sotalol 80 mg Tablet 80 mg PO BID Qty: 60 11RF aspirin 81 mg Tablet,Delayed Release (Dr/Ec) 81 mg PO QD Qty: 30 11RF lisinopril 10 mg Tablet 5 mg PO DAILY Qty: 30 11RF nitroglycerin 0.4 mg tablet, sublingual 0.4 mg sublingual Q5M PRN (Reason: chest pain) Rx Instructions: do not exceed 3 doses per episode Print Language: Libyan Instructions: Hip Contusion (ED) Referrals: Raphael Avila MD [Primary Care Provider, Family Practice] - 1 week Discharge Date/Time: 08/22/24 06:59
--- NOTE | 2024-08-22 02:54 | XR_ITS ---
The [address] [address] Patient Name: SHAHRZAD EDGAR MRN: [id number] date: 1945 Sex: M Assigned Patient Location: ED.MAIN Current Patient Location: Accession/Order Number: [id number] Exam Date: 08/22/2024 08:07 Report Date: 08/22/2024 08:08 At the request of: SOUMYA RILEY MD Procedure: XR elbow RT min 3V XR elbow RT min 3V 08/22/2024 3:28 AM SIGNS AND SYMPTOMS: Fall, right hip and elbow pain PROTOCOL: Frontal, lateral, and oblique radiographs of the right elbow COMPARISON: 03/02/2023 FINDINGS: Postoperative changes are noted along the proximal ulna axis with previous hardware repair of an olecranon fracture. There is no evidence of acute displaced fracture. A small osteochondroma is redemonstrated along the anterior margin of the distal humeral shaft. The joint spaces are preserved. No soft tissue swelling. No joint effusion. XR/XR elbow RT min 3V IMPRESSION: No fracture. Status post hardware fixation of a remote olecranon fracture. A small osteochondroma is redemonstrated along the anterior margin of the distal humerus. Impression dictated by: Robbie Fuentes M.D. 08/22/2024 8:08 AM Dictation Location: [facility] Electronically authenticated by: [id number] Y Date: 08/22/2024 08:08
--- NOTE | 2024-08-22 02:54 | XR_ITS ---
The [place] [id number] Patient Name: SHAHRZAD EDGAR MRN: [id number] date: 1945 Sex: M Assigned Patient Location: ED.MAIN Current Patient Location: Accession/Order Number: [id number] Exam Date: 08/22/2024 08:06 Report Date: 08/22/2024 08:07 At the request of: SOUMYA RILEY MD Procedure: XR hip RT 2V w/ pelvis XR hip RT 2V w/ pelvis 08/22/2024 3:28 AM SIGNS AND SYMPTOMS: Fall, right hip and elbow pain PROTOCOL: Frontal radiograph the pelvis with frontal and frog-leg views of the right hip COMPARISON: 03/02/2023 FINDINGS: There is mild narrowing of the joint spaces of the hips. Degenerative changes are partly visualized in the lumbar spine and sacroiliac joints. There is no fracture or dislocation. The bony ring of the pelvis is intact. Vascular calcifications are present in the pelvis. XR/XR hip RT 2V w/ pelvis IMPRESSION: No fracture or dislocation. Mild degenerative changes are noted in the hips. Impression dictated by: Robbie Fuentes M.D. 08/22/2024 8:07 AM Dictation Location: [place] [address] Electronically authenticated by: [id number] Y Date: 08/22/2024 08:07
[2024-08-22 03:07] LABS: Basophils Percent Auto 0.4 % (0.2-2.0); Eosinophils Absolute Auto 0.3 10^3/uL (0.0-0.7); Eosinophils Percent Auto 4.7 % (0.9-7.0); Hematocrit 34.1 % (42.0-54.0); Hemoglobin 11.7 g/dL (14.0-18.0); Immature Granulocytes Abs Auto 0.06 10^3/uL (0.00-0.03); Immature Granulocytes Pct Auto 0.8 % (0.0-0.5); Lymphocytes Absolute Auto 1.7 10^3/uL (1.2-3.8); Lymphocytes Percent Auto 24.1 % (20.5-60.0); Mean Corpuscular HGB Conc 34.3 g/dL (29.9-35.2); Mean Corpuscular Hemoglobin 34.3 pg (25.9-34.0); Mean Platelet Volume 9.9 fL (9.5-13.5); Monocytes Absolute Auto 0.6 10^3/uL (0.3-0.8); Monocytes Percent Auto 8.1 % (1.7-12.0); Neutrophils Absolute Auto 4.4 10^3/uL (1.4-6.5); Neutrophils Percent Auto 61.9 % (43.0-75.0); Platelet Count 255 10^3/uL (150-450); Red Blood Count 3.41 10^6/uL (4.70-6.10); Red Cell Distribution Width 15.7 % (11.0-15.0); White Blood Count 7.2 10^3/uL (4.0-11.0)
[2024-08-22 03:08] LABS: Anion Gap 11.1; BUN Creatinine Ratio 10.8; Calcium 8.9 mg/dL (8.5-10.1); Carbon Dioxide 29.9 mmol/L (21.0-32.0); Chloride 102 mmol/L (98-107); Estimated GFR (African America 56 (>=60 mL/min/1.73m^2); Estimated GFR (Non-African Ame 46 (>=60 mL/min/1.73m^2); Glucose 104 mg/dL (74-106); Sodium 139 mmol/L (136-145)
== END 2024-08-22 06:59 | disposition home or self-care (01) ==
PROVIDERS: Emergency Provider Internal Medicine; PCP Family Medicine
DX: S70.01XA Contusion of right hip, initial encounter (principal); S50.01XA Contusion of right elbow, initial encounter; W18.39XA Other fall on same level, initial encounter; M21.371 Foot drop, right foot; Z90.49 Acquired absence of other specified parts of digestive tract; Z87.891 Personal history of nicotine dependence; R42 Dizziness and giddiness
CPT/HCPCS: 36415; 73080; 73502; 80048; 81001; 85025; 93005; 99285

== ENCOUNTER 2024-12-15 08:31 | Emergency (ER) | payer MEDICARE, SELFPAY ==
[2024-12-15] VITALS (34 sets, daily range): BP systolic 102–130; BP diastolic 47–84; PULSE 49–66; TEMP 36.7; O2SAT 92–100; BMI 27.7
--- NOTE | 2024-12-15 08:43 | ECG_ITS ---
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 Measurements Intervals [place] Rate: 67 P: 90 SD: 188 QRS: 55 QRSD: 86 T: 51 QT: 468 QTc: 483 Interpretive Statements 1100 Sinus rhythm 1474 with frequent supraventricular premature complexes 8304 Long QTc interval 9150 abnormal ECG Compared to ECG 08/22/2024 02:28:25 No significant changes Electronically Signed On 12-16-2024 7:29:11 EDT by ANCA BUTLER M.D.
--- NOTE | 2024-12-15 08:43 | XR_ITS ---
The [address] [address] Patient Name: SHAHRZAD EDGAR MRN: [id number] date: 1945 Sex: M Assigned Patient Location: ER Current Patient Location: ER Accession/Order Number: [id number] Exam Date: 12/15/2024 09:00 Report Date: 12/15/2024 09:14 At the request of: HUI LOREDO MD Procedure: XR chest 1V Single view chest: CLINICAL HISTORY: weak COMPARISON: Chest 04/05/2024 FINDINGS: The heart is normal in size. The lungs are clear. The pulmonary vasculature is normal. Mediastinum and hilar regions are unremarkable. No pleural effusions are seen. Visualized bones are intact. XR/XR chest 1V IMPRESSION: NO ACUTE PROCESS. Impression dictated by: Lesa Amaya Jr.OMook 12/15/2024 9:14 AM Dictation Location: [place] [address] Electronically authenticated by: [id number] Y Date: 12/15/2024 09:14
--- NOTE | 2024-12-15 08:44 | CT_ITS ---
The [address] [address] Patient Name: SHAHRZAD EDGAR MRN: [id number] date: 1945 Sex: M Assigned Patient Location: ER Current Patient Location: ED.MAIN Accession/Order Number: [id number] Exam Date: 12/15/2024 09:00 Report Date: 12/15/2024 09:23 At the request of: HUI LOREDO MD Procedure: CT head/brain wo con CT BRAIN WITHOUT CONTRAST: CLINICAL HISTORY: weak COMPARISON: None TECHNIQUE: Contiguous axial unenhanced images were obtained through the brain. This CT exam was performed using one or more following dose reduction techniques: Automated exposure control, adjustment of the mA and/or kV according to patient size, or use of iterative reconstruction technique. FINDINGS: There is no evidence of midline shift, intra or extra-axial fluid collection, hemorrhage or CT evidence of stroke. Remote infarcts bilaterally with associated encephalomalacia grossly unchanged from the prior study. Cortical atrophy with chronic microvascular ischemic changes. Posterior fossa appears unremarkable. Visualized intraorbital contents demonstrate no acute findings. Visualized paranasal sinuses are clear. The surrounding soft tissues are normal. CT/CT head/brain wo con IMPRESSION: NO ACUTE INTRACRANIAL ABNORMALITY. Impression dictated by: Wilson Trinidad Jr., D.O. 12/15/2024 9:23 AM Dictation Location: [place] [address] Electronically authenticated by: [id number] Y Date: 12/15/2024 09:23
--- NOTE | 2024-12-15 08:44 | ED.GENADUL1 ---
HPI HPI - General Adult General Chief complaint: Weakness Stated complaint: CHEST PAIN Time Seen by Provider: 12/15/24 08:38 Source: patient Mode of arrival: ambulance Limitations: no limitations History of Present Illness HPI narrative: 79-year-old male presented for generalized weakness. He states his legs feel wobbly and he states that it has been like this for about a week and it is getting a little bit worse. No complaints of fever or cough or abdominal pain. No vomiting or diarrhea. He gets short of breath when he exerts himself. He was brought here by squad. Related Data Home Medications ?Medication ?Instructions ?Recorded ?Confirmed atorvastatin 80 mg tablet 80 mg PO DAILY 03/02/23 12/15/24 nitroglycerin 0.4 mg sublingual 0.4 mg sublingual Q5M PRN chest 08/22/24 12/15/24 tablet pain Previous Rx's ?Medication ?Instructions ?Recorded aspirin 81 mg tablet,delayed 81 mg PO QD #30 tabs 10/05/23 release lisinopril 10 mg tablet 5 mg (1/2 x 10 mg) PO DAILY #30 10/05/23 tabs sotalol 80 mg tablet 80 mg PO BID #60 tabs 10/05/23 cephalexin 500 mg capsule 500 mg PO TID 7 days #21 caps 12/15/24 Allergies Allergy/AdvReac Type Severity Reaction Status Date / Time coconut Allergy Intermediate Vomiting Verified 12/15/24 08:35 Opioid HPI Opioid Management Most Recent Opioid Data: Last Pain Scale 8 Today, 12:25 Last MAR Pain Assessment Today, 12:25 Last ORT Total Score 0 04/05/24, 11:18 Last ORT Risk Category Low Risk 04/05/24, 11:18 Ur Phencyclidine Scrn, (NEGATIVE) Negative 04/05/24, 23:51 Review of Systems ROS Narrative A ten point review of systems is negative except as noted above. [facility] Medical History (Updated 12/15/24 @ 13:04 by Ari Herrera MD) COPD (chronic obstructive pulmonary disease) ?J44.9 - Chronic obstructive pulmonary disease, unspecified (ICD-10) History of stroke ?Z86.73 - Personal history of transient ischemic attack (TIA), and cerebral infarction without residual deficits (ICD-10) Acute metabolic encephalopathy ?G93.41 - Metabolic encephalopathy (ICD-10) Generalized weakness ?R53.1 - Weakness (ICD-10) Foot drop, bilateral ?M21.371 - Foot drop, right foot (ICD-10) ?M21.372 - Foot drop, left foot (ICD-10) Hyperlipemia ?E78.5 - Hyperlipidemia, unspecified (ICD-10) Past heart attack ?I25.2 - Old myocardial infarction (ICD-10) Hypertension ?I10 - Essential (primary) hypertension (ICD-10) CVA (cerebral vascular accident) ?I63.9 - Cerebral infarction, unspecified (ICD-10) Surgical History Hx of cholecystectomy ?Z90.49 - Acquired absence of other specified parts of digestive tract (ICD-10) History of back surgery ?Z98.890 - Other specified postprocedural states (ICD-10) Family History Father Family history of COPD (chronic obstructive pulmonary disease) Mother Family history of cancer Alzheimer dementia Social History Within the past year, how often did you have a drink containing alcohol: 2-4 times a month Within the past year, how many standard drinks containing alcohol did you have on a typical day: 1 or 2 Within the past year, how often did you have six or more drinks on one occasion: never Total score: 0 Score interpretation: A score less than 4 is consistent with normal alcohol consumption. Smoking status: Former smoker Second hand tobacco smoke exposure: No Non-prescribed substance use: denies use Previous occupational history: retired Known occupational exposures/hazards: No Highest level of school completed/degree received: GED or equivalent Are you now , , , , never or living with a partner: living with partner In a typical week, how many times do you talk on the telephone with family, friends, or neighbors: 3 or more times per week How often do you get together with friends or relatives: 3 or more times per week How often do you attend anabaptist or jewish services: never Do you belong to any clubs or organizations such as anabaptist groups unions, fraternal or athletic groups, or school groups: no Total score: 2 Score interpretation: A score of greater than or equal to 2 indicates the lowest level of social isolation. Little interest or pleasure in doing things: not at all Feeling down, depressed, or hopeless: not at all Feel stressed/tense/nervous/anxious/difficulty sleeping: not at all Do you think of yourself as: straight/heterosexual Gender Identity: male Exam Narrative Exam Narrative: Nurses note and vital signs reviewed and patient is not hypoxic. General:The patient appears well and in no apparent distress.Patient is resting comfortably on cart. Skin:Warm, dry, no pallor noted.There is no rash noted. Head:Normocephalic, atraumatic Eye: Normal conjunctiva, no drainage Ears, Nose, Mouth, and Throat: oral mucosa is moist. Nares patent. Cardiovascular:Regular Rate and Rhythm Respiratory:Patient is in no distress, no accessory muscle use, lungs are clear to auscultation, no wheezing, rales or rhonchi Back:non-tender, no CVA tenderness bilaterally to percussion. GI: Soft and nontender Musculoskeletal: The patient has no evidence of calf tenderness, no pitting edema, symmetrical pulses noted bilaterally Neurological:A&O x4, normal speech Psychiatric:Cooperative Constitutional Vital Signs, click to edit/add: Last Vital Signs Temp 98.1 F 12/15/24 08:35 Pulse 66 12/15/24 08:35 Resp 16 12/15/24 08:35 BP 117/84 12/15/24 08:35 Pulse Ox 100 12/15/24 08:35 O2 Del Method Room Air 12/15/24 08:35 Course Vital Signs Vital signs: Vital Signs Temperature 98.1 F 12/15/24 08:35 Pulse Rate 66 12/15/24 08:35 Respiratory Rate 16 12/15/24 08:35 Blood Pressure 117/84 12/15/24 08:35 Pulse Oximetry 100 12/15/24 08:35 Oxygen Delivery Method Room Air 12/15/24 08:35 Temperature 98.1 F 12/15/24 08:35 Pulse Rate 66 12/15/24 08:35 Respiratory Rate 16 12/15/24 08:35 Blood Pressure 117/84 12/15/24 08:35 Pulse Oximetry 100 12/15/24 08:35 Oxygen Delivery Method Room Air 12/15/24 08:35 Medical Decision Making MDM Narrative Medical decision making narrative: His workup is negative except for mild UTI. CT brain and blood work and x-ray are all negative. He was given IV Rocephin. We discussed the patient going home and the patient would prefer to go home and desires to go home. He will return if symptoms worsen. He was prescribed Keflex as well. Treatment diagnosis and follow-up were discussed with the patient. Differential Diagnosis Differential Diagnosis: Dehydration, anemia, UTI, pneumonia Lab Data Lab results reviewed: Yes I reviewed the patient's lab results Labs: Lab Results 12/15/24 12/15/24 Range/Units 08:40 12:30 WBC 10.0 (4.0-11.0) 10^3/uL RBC 3.33 L (4.70-6.10) 10^6/uL Hgb 11.1 L (14.0-18.0) g/dL Hct 33.4 L (42.0-54.0) % MCV 100.3 H (80.0-94.0) fL MCH 33.3 (25.9-34.0) pg MCHC 33.2 (29.9-35.2) g/dL RDW 15.0 (11.0-15.0) % Plt Count 291 (150-450) 10^3/uL MPV 10.0 (9.5-13.5) fL Neut % (Auto) 75.6 H (43.0-75.0) % Lymph % (Auto) 13.2 L (20.5-60.0) % [place] % (Auto) 6.7 (1.7-12.0) % Eos % (Auto) 3.9 (0.9-7.0) % Baso % (Auto) 0.3 (0.2-2.0) % Neut # (Auto) 7.5 H (1.4-6.5) 10^3/uL Lymph # (Auto) 1.3 (1.2-3.8) 10^3/uL [place] # (Auto) 0.7 (0.3-0.8) 10^3/uL Eos # (Auto) 0.4 (0.0-0.7) 10^3/uL Baso # (Auto) 0.0 (0.0-0.1) 10^3/uL Abs Immat Gran (auto) 0.03 (0.00-0.03) 10^3/uL Imm/Tot Granulo (auto) 0.3 (0.0-0.5) % Sodium 135 L (136-145) mmol/L Potassium 4.3 (3.5-5.1) mmol/L Chloride 99 (98-107) mmol/L Carbon Dioxide 26.3 (21.0-32.0) mmol/L Anion Gap 14.0 BUN 23.0 H (7.0-18.0) mg/dL Creatinine 1.64 H (0.70-1.30) mg/dL Est GFR ( Amer) 50 L (>=60 mL/min/1.73m^2) Est GFR (Non-Af Amer) 41 L (>=60 mL/min/1.73m^2) BUN/Creatinine Ratio 14.0 Glucose 157 H (74-106) mg/dL Calcium 8.7 (8.5-10.1) mg/dL Troponin I High Sens 4.9 (4.0-76.1) pg/mL Urine Color Lt. yellow (YELLOW) Urine Clarity Clear (CLEAR) Urine pH 6.0 (5.0-9.0) Ur Specific [place] 1.020 (1.005-1.025) Urine Protein Negative (NEG/TRACE) mg/dL Urine Glucose (UA) 100 A (NEGATIVE) mg/dL Urine Ketones Negative (NEGATIVE) mg/dL Urine Occult Blood Negative (NEGATIVE) Urine Nitrite Negative (NEGATIVE) Urine Bilirubin Negative (NEGATIVE) Urine Urobilinogen 0.2 (0.2-1.0) EU/dL Ur Leukocyte Esterase Trace A (NEGATIVE) Urine RBC 0-2 (0-2) #/HPF Urine WBC 5-10 A (NONE SEEN) #/HPF Ur Squamous Epith Cells Few A (NONE/RARE) #/LPF Urine Crystals None seen (None Seen) #/HPF Urine Bacteria Trace A (NONE SEEN) #/HPF Urine Casts None seen (NONE SEEN) #/LPF Urine Mucus None seen (NONE SEEN) Ur Culture Indicated? Yes-[facility] [place] Imaging Data Chest x-ray: Radiologist's impression: ITS Impressions Chest X-Ray 12/15/24 08:43 IMPRESSION: NO ACUTE PROCESS. Impression dictated by: Wilson Trinidad Jr. DMookOMook 12/15/2024 9:14 AM Dictation Location: [facility] Electronically authenticated by: [id number] Y Date: 12/15/2024 09:[address] 12/15/24 08:44 IMPRESSION: NO ACUTE INTRACRANIAL ABNORMALITY. Impression dictated by: Wilson Trinidad Jr., D.O. 12/15/2024 9:23 AM Dictation Location: [employer] Electronically authenticated by: [id number] Y Date: 12/15/2024 09:23 ECG Data Attestation: I personally reviewed and interpreted this ECG as follows: (EKG my interpretation shows sinus rhythm with rate of 67 and no acute change) Discharge Plan Discharge Chief Complaint: Weakness Clinical Impression: Urinary tract infection Patient Disposition: Home, Self-Care Time of Disposition Decision: 13:04 Condition: Good Mode of Transportation: Private Vehicle Prescriptions / Home Meds: New cephalexin 500 mg capsule 500 mg PO TID 7 Days Qty: 21 0RF No Action atorvastatin 80 mg tablet 80 mg PO DAILY sotalol 80 mg Tablet 80 mg PO BID Qty: 60 11RF aspirin 81 mg Tablet,Delayed Release (Dr/Ec) 81 mg PO QD Qty: 30 11RF lisinopril 10 mg Tablet 5 mg PO DAILY Qty: 30 11RF nitroglycerin 0.4 mg tablet, sublingual 0.4 mg sublingual Q5M PRN (Reason: chest pain) Rx Instructions: do not exceed 3 doses per episode Print Language: Citizen [place] Instructions: Urinary Tract Infection in Men (ED) Referrals: Raphael Avila MD [Primary Care Provider, Family Practice] - 1 week
[2024-12-15] MEDS: 0.9 % SODIUM CHLORIDE 1,000 ML 1000 ML IV (08:50)
[2024-12-15 08:52] LABS: Hematocrit 33.4 % (42.0-54.0); Hemoglobin 11.1 g/dL (14.0-18.0); Immature Granulocytes Abs Auto 0.03 10^3/uL (0.00-0.03); Immature Granulocytes Pct Auto 0.3 % (0.0-0.5); Lymphocytes Absolute Auto 1.3 10^3/uL (1.2-3.8); Mean Corpuscular HGB Conc 33.2 g/dL (29.9-35.2); Mean Corpuscular Hemoglobin 33.3 pg (25.9-34.0); Mean Corpuscular Volume 100.3 fL (80.0-94.0); Platelet Count 291 10^3/uL (150-450); Red Blood Count 3.33 10^6/uL (4.70-6.10); White Blood Count 10.0 10^3/uL (4.0-11.0)
[2024-12-15 09:08] LABS: Anion Gap 14.0; Blood Urea Nitrogen 23.0 mg/dL (7.0-18.0); Calcium 8.7 mg/dL (8.5-10.1); Carbon Dioxide 26.3 mmol/L (21.0-32.0); Chloride 99 mmol/L (98-107); Estimated GFR (African America 50 (>=60 mL/min/1.73m^2); Estimated GFR (Non-African Ame 41 (>=60 mL/min/1.73m^2); Glucose 157 mg/dL (74-106); Potassium 4.3 mmol/L (3.5-5.1); Sodium 135 mmol/L (136-145)
--- OUTSIDE RECORDS SUMMARY | 2024-12-15 09:22 | XMS_ITS | Encounter Summary ---
Author Organization [facility] Address [address] [place] [address] Phone Care Team Providers Care Fulfillment Associate Name Role Phone Valente Tobin DO Primary Care Provider [phone] Sherlyn Larson MD Unavailable [phone] Raphael Avila MD Primary Care Provider [phone] Encounter Details Date Type Department Care Team (Late st Contact Info) Description 05/01/2020 Orders Only [facility] [address] [place] [address] Conversion, Onbase Social History Tobacco Use Types Packs/Day Years Used Date Smoking Tobacco: Never Assessed Sex and Gender Information Value Date Recorded Sex Assigned at Not on file Legal Sex Male 6:44 PM EST Gender Identity Not on file Sexual Orientation Not on file documented as of this encounter Plan of Treatment Upcoming Encounters Date Type Department Care Team (Late st Contact Info) Description 06/08/2025 3:00 PM EDT Office Visit [facility] [address]03 [facility] [address] [place] [address] Sherlyn Larson MD 703 [facility] 2, [address] [place] [address] Scheduled Orders Name Type Priority Associated Diagnoses Orde r Schedule OUTSIDE LAB SCAN Lab Ordered: 05/01/2020 documented as of this encounter Visit Diagnoses Not on filedocumented in this encounter Care Teams Fulfillment Associate Relationship Specialty Start Date End Date Valente Tobin DO PCP - General 03/23/99 07/29/23 Sherlyn aLrson MD 703 [facility] 2, [address] [address] PCP - MSSP ACO Attributed Provider 03/23/23 03/22/24 Raphael Avila MD [address] [place] [address] PCP - General Family Medicine 04/20/24 documented as of this encounter
--- OUTSIDE RECORDS SUMMARY | 2024-12-15 09:22 | XMS_ITS | Encounter Summary ---
Author Organization [facility] Address [address] [place] [address] Phone Care Team Providers Care Blocker Hand Name Role Phone Raphael Avila MD Primary Care Provider + [phone] Encounter Details Date Type Department Care Team (Late Contact Info) Description 05/24/2024 Patient Risk Score [facility] [place] 7580 [facility] [address] [place] [address] Social History Tobacco Use Types Packs/Day Years Used Date Smoking Tobacco: Former Cigarettes Q uit: 2019 Smokeless Tobacco: Never Alcohol Use Standard Drinks/Week Comments Yes 2 (1 standard drink = 0.6 oz pur e alcohol) occasionally Sex and Gender Information Value Date Recorded Sex Assigned at Not on file Legal Sex Male 6:44 PM EST Gender Identity Not on file Sexual Orientation Not on file documented as of this encounter Plan of Treatment Upcoming Encounters Date Type Department Care Team (Late st Contact Info) Description 06/08/2025 3:00 PM EDT Office Visit [place] [address] [facility] [address] [place] [address] Sherlyn Larson MD 703 [facility] 2, [address] [place] [address] documented as of this encounter Visit Diagnoses Not on filedocumented in this encounter Additional Health Concerns Assessment Noted Time A fall risk assessment has been complete d for the patient 04/20/2024 1:45 PM EST documented as of this encounter Care Teams Blocker Hand Relationship Specialty Start Date End Date Raphael Avila MD [address] [facility] [place] [address] PCP - General Family Medicine 04/20/24 documented as of this encounter
--- OUTSIDE RECORDS SUMMARY | 2024-12-15 09:22 | XMS_ITS | Encounter Summary ---
Author Organization [facility] Address [address] [place] [address] Phone Care Team Providers Care Home Lighting Adviser Name Role Phone Sherlyn Larson MD Unavailable [phone] Raphael Avila MD Primary Care Provider + [phone] Encounter Details Date Type Department Care Team (Late st Contact Info) Description 11/25/2023 Patient Risk Score [facility] [place] [address] [facility] [address] [place] [address] Social History Tobacco Use Types [...] Description 06/08/2025 3:00 PM EDT Office Visit [place] [address] [facility] [address] [place] [address] Sherlyn Larson MD 703 [facility] 2, [address] [place] [address] documented as of this encounter Visit Diagnoses Not on filedocumented in this encounter Additional Health Concerns Assessment Noted Time A fall risk assessment has been complete d for the patient 07/30/2023 2:48 PM EDT documented as of this encounter Care Teams Home Lighting Adviser Relationship Specialty Start Date End Date Sherlyn Larson MD 703 [facility] 2, [facility] 250 [place] [address] PCP - MSSP ACO Attributed Provider 03/23/23 03/22/24 Raphael Avila MD 1265 [facility] [place] [address] PCP - General Family Medicine 04/20/24 documented as of this encounter
--- OUTSIDE RECORDS SUMMARY | 2024-12-15 09:22 | XMS_ITS | Clinical Summary ---
Author Organization [facility] Address [address] [place] [address] Care Team Providers Care Sliver Machine Operator Name Role Phone Unallocated, [facility] Provider Primary Care Provi miya Allergies No known active allergies Medications aspirin 81 MG EC tablet Take 1 tablet by mouth Daily Active atorvastatin (Lipitor) 80 MG tablet Take 80 mg by mouth Daily Active lisinopril 2.5 MG tablet Take 2.5 mg by mouth Daily Active ibuprofen 400 MG tablet Take 1 tablet twice a day by oral route. Active sotalol AF (Betapace AF) 120 MG tablet TAKE 1/2 TABLET TWICE A DAY BY MOUTH 03/11/2023 Active Active Problems No known active problems Encounters Date Type Department Care Team Description 11/03/2024 2:40 PM EDT Procedure Visit [facility] [address] [facility] [address] [place] [address] Marciano Chapman DPM Xerosis cutis (Primary Dx); Diabetes 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, unspecified whether half-way insulin use (HCC); Pain due to onychomycosis of toenails of both feet; Right foot drop 11/03/2024 Bamboo flowsheet [facility] [address] [place] [address] [place] [address] Marciano Chapman DPM 11/03/2024 Travel from Last 3 Months Family History Relation Name Status Comments Father Mother Social History Tobacco Use Types Packs/Day Years Used Date Smoking Tobacco: Unknown Passive Smoke Exposure: Never Tobacco Cessation:Counseling Given: Yes Alcohol Use Standard Drinks/Week Comments Yes 1 (1 standard drink = 0.6 oz pur e alcohol) coffee daily Sex and Gender Information Value Date Recorded Sex Assigned at Not on file Legal Sex Male 6:56 PM EDT Gender Identity Not on file Sexual Orientation Not on file Last Filed Vital Signs Vital Sign Reading Time Taken Comments Blood Pressure 131/77 01/07/2024 1:51 PM EDT Pulse 81 01/07/2024 1:51 PM EDT Temperature - - Respiratory Rate 16 11/03/2024 1:40 PM EDT Oxygen Saturation - - Inhaled Oxygen Concentration - - Weight 96.2 kg (212 lb) 11/03/2024 1:40 PM EDT Height 185.4 cm (6' 1 ) 11/03/2024 1:40 PM EDT Body Mass Index 27.97 11/03/2024 1:40 PM EDT Plan of Treatment Upcoming Encounters Date Type Department Care Team ([facility] st Contact Info) Description 01/26/2025 1:50 PM EST Procedure Visit [facility] 112 [facility] 120 [place] [address] Marciano Chapman, DPDina 3008 [facility] 5 [place] [address] Health Maintenance Due Date Last Done Comments Medicare Annual Wellness (AWV) 1945 Diabetes: Retinopathy Screening 1956 Diabetes: Urine Protein Screening 1965 Pneumococcal Vaccine: 65+ Ye ars (1 of 2 - PCV) 1965 Diabetes: Hemoglobin A1C 02/27/2022 11/28/2021 Influenza Vaccine (#1) 2024 03/23/2017 Colonoscopy Discontinued 04/18/2019, 03/24, 02/21/2016 Colorectal Cancer Screening Discontinued CT Colonography Discontinued FIT-DNA Discontinued FIT Discontinued FOBT Discontinued Sigmoidoscopy Discontinued Insurance MEDICARE Care Teams Sliver Machine Operator Relationship Specialty Start Date End Date Unallocated, [facility] Provider, [address] [place], [place] [id number] PCP - General Family Medicine 06/04/23
--- OUTSIDE RECORDS SUMMARY | 2024-12-15 09:22 | XMS_ITS | Encounter Summary ---
Author Organization [facility] Address [address] [place] [address] Phone Care Team Providers Care Veneer Supervisor Name Role Phone Sherlyn Larson MD Unavailable [phone] Raphael Avila MD Primary Care Provider + [phone] Encounter Details Date Type Department Care Team (Late st Contact Info) Description 12/25/2023 Patient Risk Score [facility] 7580 [facility] [address] [place] [address] Social History Tobacco Use Types [...] Description 06/08/2025 3:00 PM EDT Office Visit [place] [id number] [facility] [address] [place] [address] Sherlyn Larson MD 703 [facility] 2, [address] [place] [address] documented as of this encounter Visit Diagnoses Not on filedocumented in this encounter Additional Health Concerns Assessment Noted Time A fall risk assessment has been complete d for the patient 07/30/2023 2:48 PM EDT documented as of this encounter Care Teams Veneer Supervisor Relationship Specialty Start Date End Date Sherlyn Larson MD 703 [facility] 2, [facility] [address] [place] [address] PCP - MSSP ACO Attributed Provider 03/23/23 03/22/24 Raphael Avila MD 1265 [facility] [place] [address] PCP - General Family Medicine 04/20/24 documented as of this encounter
--- OUTSIDE RECORDS SUMMARY | 2024-12-15 09:22 | XMS_ITS | Encounter Summary ---
Author Organization [facility] Address [address] [place] [address] Phone Care Team Providers Care Senior Instrumentation Engineer Name Role Phone Sherlyn Larson MD Unavailable [phone] Raphael Avila MD Primary Care Provider [phone] Encounter Details Date Type Department Care Team (Late st Contact Info) Description 09/24/2023 Patient Risk Score [facility] Care Management 7580 [facility] [address] [place] [address] Social History Tobacco Use Types [...] Description 06/08/2025 3:00 PM EDT Office Visit [place] [address] [facility] [address] [place] [address] Sherlyn Larson MD 703 [facility] 2, [address] [place] [address] documented as of this encounter Visit Diagnoses Not on filedocumented in this encounter Additional Health Concerns Assessment Noted Time A fall risk assessment has been complete d for the patient 07/30/2023 2:48 PM EDT documented as of this encounter Care Teams Senior Instrumentation Engineer Relationship Specialty Start Date End Date Sherlyn Larson MD 703 [facility] 2, [facility] [address] [place] [address] PCP - MSSP ACO Attributed Provider 03/23/23 03/22/24 Raphael Avila MD 12[address] [place] [address] PCP - General Family Medicine 04/20/24 documented as of this encounter
--- OUTSIDE RECORDS SUMMARY | 2024-12-15 09:22 | XMS_ITS | Clinical Summary ---
Author Organization [facility] Radiation Watch [facility] tem Address [id number] [address] [place] [address] Care Team Providers Care Rn Intern Name Role Phone Unavailable Primary Care Provider Unavailabl e Social History Tobacco Use Types Packs/Day Years Used Date Smoking Tobacco: Never Assessed Sex and Gender Information Value Date Recorded Sex Assigned at Not on file Legal Sex Male 2:13 PM EDT Gender Identity Not on file Sexual Orientation Not on file Plan of Treatment Health Maintenance Due Date Last Done Comments Depression Screening 1958 Tobacco Screening 1958 DTaP,Tdap and Td Vaccines (1 - Tdap) 1965 Zoster (Shingles) Vaccine (1 of 2) 1996 Fall Risk Screening 10/24/2011 COVID-19 Vaccine (2024-2 6 season) 2024 01/15/2021, 06/12/2020, 05/21/2020 Influenza Vaccine 11/21/2024 03/23/2017 Medical Devices Not on file Insurance MEDICARE
--- OUTSIDE RECORDS SUMMARY | 2024-12-15 09:22 | XMS_ITS | Encounter Summary ---
Author Organization [facility] Address [address] [place] [address] Phone Care Team Providers Care Community Arts Worker Name Role Phone Sherlyn Larson MD Unavailable [phone] Raphael Avila MD Primary Care Provider [phone] Encounter Details Date Type Department Care Team (Late st Contact Info) Description 02/24/2024 Patient Risk Score [facility] [place] [address] [facility] [address] [place] [address] Social History Tobacco Use Types [...] on file Sexual Orientation Not on file COVID-19 Exposure Response Date Recorded In the last 10 days, have yo u been in contact with someone who was confirmed or suspected to have Coronavirus/COVID-19? No / Unsure 01/28/2024 2:40 PM EST documented as of this encounter Plan of Treatment Upcoming Encounters Date Type Department Care Team (Late st Contact Info) Description 06/08/2025 3:00 PM EDT Office Visit [facility] 703 [facility] [address] [place] [address] Sherlyn Larson MD 703 [facility] 2, [address] [place] [address] documented as of this encounter Visit Diagnoses Not on filedocumented in this encounter Additional Health Concerns Assessment Noted Time A fall risk assessment has been complete d for the patient 01/28/2024 2:58 PM EST documented as of this encounter Care Teams Community Arts Worker Relationship Specialty Start Date End Date Sherlyn Larson MD 703 [facility] 2, [address] [place] [address] PCP - MSSP ACO Attributed Provider 03/23/23 03/22/24 Raphael Avila MD 1265 [facility] [place] [address] PCP - General Family Medicine 04/20/24 documented as of this encounter
--- OUTSIDE RECORDS SUMMARY | 2024-12-15 09:22 | XMS_ITS | Encounter Summary ---
Author Organization [facility] Address [address] [place] [address] Phone Care Team Providers Care Work Car Operator Name Role Phone Valente Tobin DO Primary Care Provider [phone] Sherlyn Larson MD Unavailable [phone] Raphael Avila MD Primary Care Provider [phone] Encounter Details Date Type Department Care Team (Late st Contact Info) Description 04/21/2022 Orders Only [facility] [address] [place] [address] Conversion, Onbase Social History Tobacco Use Types [...] Description 06/08/2025 3:00 PM EDT Office Visit [facility] 703 [facility] [address] [place] [address] Sherlyn Larson MD 703 [facility] 2, [address] [place] [address] Scheduled Orders Name Type Priority Associated Diagnoses Orde r Schedule OUTSIDE LAB SCAN Lab Ordered: 04/21/2022 documented as of this encounter Visit Diagnoses Not on filedocumented in this encounter Care Teams Work Car Operator Relationship Specialty Start Date End Date Valente Tobin DO PCP - General 03/23/99 07/29/23 Sherlyn Larson MD 703 [facility] 2, [address] [address] PCP - MSSP ACO Attributed Provider 03/23/23 03/22/24 Raphael Avila MD [address] [place] [address] PCP - General Family Medicine 04/20/24 documented as of this encounter
--- OUTSIDE RECORDS SUMMARY | 2024-12-15 09:22 | XMS_ITS | Encounter Summary ---
Author Organization [facility] Address [address] [place] [address] Phone Care Team Providers Care Burn Table Operator Name Role Phone Raphael Avila MD Primary Care Provider + [phone] Encounter Details Date Type Department Care Team (Late Contact Info) Description 03/25/2024 Patient Risk Score [facility] [place] 7580 [facility] [address] [place] [address] Social History Tobacco Use Types [...] Description 06/08/2025 3:00 PM EDT Office Visit [place] [address] [facility] [address] [place] [address] Sherlyn Larson MD 703 [facility] 2, [address] [place] [address] documented as of this encounter Visit Diagnoses Not on filedocumented in this encounter Additional Health Concerns Assessment Noted Time A fall risk assessment has been complete d for the patient 01/28/2024 2:58 PM EST documented as of this encounter Care Teams Burn Table Operator Relationship Specialty Start Date End Date Raphael Avila MD [address] [facility] [place] [address] PCP - General Family Medicine 04/20/24 documented as of this encounter
--- OUTSIDE RECORDS SUMMARY | 2024-12-15 09:22 | XMS_ITS | Encounter Summary ---
Author Organization [facility] Address [address] [place] [address] Phone Care Team Providers Care Ultrasound Applications Specialist Name Role Phone Sherlyn Larson MD Unavailable [phone] Raphael Avila MD Primary Care Provider + [phone] Encounter Details Date Type Department Care Team (Late st Contact Info) Description 10/25/2023 Patient Risk Score [facility] [place] 7580 [facility] [address] [place] [address] Social History Tobacco Use Types [...] Description 06/08/2025 3:00 PM EDT Office Visit [place] [address] [facility] [address] [place] [address] Sherlyn Larson MD 703 [facility] 2, [address] [place] [address] documented as of this encounter Visit Diagnoses Not on filedocumented in this encounter Additional Health Concerns Assessment Noted Time A fall risk assessment has been complete d for the patient 07/30/2023 2:48 PM EDT documented as of this encounter Care Teams Ultrasound Applications Specialist Relationship Specialty Start Date End Date Sherlyn Larson MD 703 [facility] 2, [facility] [address] [place] [address] PCP - MSSP ACO Attributed Provider 03/23/23 03/22/24 Raphael Avila MD 1265 [facility] [place] [address] PCP - General Family Medicine 04/20/24 documented as of this encounter
--- OUTSIDE RECORDS SUMMARY | 2024-12-15 09:22 | XMS_ITS | Encounter Summary ---
Author Organization [facility] Address [address] [place] [address] Phone Care Team Providers Care Flight Crew Ordnanceman Name Role Phone Sherlyn Larson MD Unavailable [phone] Raphael Avila MD Primary Care Provider + [phone] Encounter Details Date Type Department Care Team (Late Contact Info) Description 01/25/2024 Patient Risk Score [facility] Care Management [address] [place] [address] Social History Tobacco Use Types [...] PM EST documented as of this encounter Functional Status * BP Answer Date of Assessment Author 118/66 01/28/2024 2:56 PM EST Dina Arredondo CMA * Pulse Answer Date of Assessment Author 55 01/28/2024 2:56 PM EST Dina Arredondo CMA * Communicable Disease Screening Question Answer Date of Assessment Author Do you have any of the following new or worsening symptoms? None of these 01/28/2024 2:40 PM EST Laura Adams documented as of this encounter Plan of Treatment Upcoming Encounters Date Type Department Care Team (Late Contact Info) Description 06/08/2025 3:00 PM EDT Office Visit [facility] 703 [facility] 250 [place] [address] Sherlyn Larson MD 703 [facility] 2, [address] [address] documented as of this encounter Visit Diagnoses Not on filedocumented in this encounter Additional Health Concerns Assessment Noted Time A fall risk assessment has been complete d for the patient 07/30/2023 2:48 PM EDT documented as of this encounter Care Teams Flight Crew Ordnanceman Relationship Specialty Start Date End Date Sherlyn Larson MD [address] [place] [address] 2, [address] [address] PCP - MSSP ACO Attributed Provider 03/23/23 03/22/24 Raphael Avila MD 1265 [facility] [place] [address] PCP - General Family Medicine 04/20/24 documented as of this encounter
--- OUTSIDE RECORDS SUMMARY | 2024-12-15 09:22 | XMS_ITS | Encounter Summary ---
Author Organization [facility] Address [address] [place] [address] Phone Care Team Providers Care Ore Dryer Name Role Phone Raphael Avila MD Primary Care Provider + [phone] Encounter Details Date Type Department Care Team (Late Contact Info) Description 04/26/2024 Patient Risk Score [facility] [place] 7580 [facility] [address] [place] [address] Social History Tobacco Use Types [...] suspected to have Coronavirus/COVID-19? No / Unsure 04/20/2024 1:32 PM EST documented as of this encounter Plan of Treatment Upcoming Encounters Date Type Department Care Team (Late st Contact Info) Description 06/08/2025 3:00 PM EDT Office Visit [facility] 703 [facility] [address] [place] [address] Sherlyn Larson MD 703 [facility] [address], [address] [place] [address] documented as of this encounter Visit Diagnoses Not on filedocumented in this encounter Additional Health Concerns Assessment Noted Time A fall risk assessment has been complete d for the patient 04/20/2024 1:45 PM EST documented as of this encounter Care Teams Ore Dryer Relationship Specialty Start Date End Date Raphael Avila MD [address] [place] [address] PCP - General Family Medicine 04/20/24 documented as of this encounter
--- OUTSIDE RECORDS SUMMARY | 2024-12-15 09:22 | XMS_ITS | Encounter Summary ---
Author Organization [facility] Address [address] [place] [address] Phone Care Team Providers Care Furnace Setter Name Role Phone Valente Tobin DO Primary Care Provider [phone] Sherlyn Larson MD Unavailable [phone] Raphael Avila MD Primary Care Provider [phone] Encounter Details Date Type Department Care Team (Late st Contact Info) Description 05/14/2022 Orders Only [facility] [address] [place] [address] Conversion, Onbase Social History Tobacco Use Types [...] Description 06/08/2025 3:00 PM EDT Office Visit [facility] 703 [facility] [address] [place] [address] Sherlyn Larson MD 703 [facility] 2, [address] [place], [place] [id number] Scheduled Orders Name Type Priority Associated Diagnoses Orde r Schedule OUTSIDE LAB SCAN Lab Ordered: 05/14/2022 documented as of this encounter Visit Diagnoses Not on filedocumented in this encounter Care Teams Furnace Setter Relationship Specialty Start Date End Date Valente Tobin DO PCP - General 03/23/99 07/29/23 Sherlyn Larson MD 703 [facility] 2, [address] [address] PCP - MSSP ACO Attributed Provider 03/23/23 03/22/24 Raphael Avila MD [address] [place] [address] PCP - General Family Medicine 04/20/24 documented as of this encounter
--- OUTSIDE RECORDS SUMMARY | 2024-12-15 09:23 | XMS_ITS | Clinical Summary ---
Author Organization [facility] Address [address] [place] [address] Phone Care Team Providers Care [facility] Department Supervisor Name Role Phone Raphael Avila MD Primary Care Provider [phone] Allergies Active Allergy Reactions Criticality Noted Date Comments Coconut Oil Other 01/29/2023 Medications aspirin 81 mg EC tablet Take 1 tablet (81 mg) by mouth once daily. Active lisinopril 10 mg tablet Take 0.5 tablets (5 mg) by mouth once daily. 11/04/19 24 Active nitroglycerin (Nitrostat) 0.[address] 1 tablet (0.4 mg) under the tongue. Active atorvastatin (Lipitor) 80 mg tabletIndications: Hyperlipidemia, unspecified hyperlipidemia type Take 1 tablet (80 mg) by mouth once daily. 90 tablet 3 08/13/19 25 Active sotalol (Betapace) 80 mg tabletIndications: Persistent atrial fibrillation (Multi) Take 0.5 tablets (40 mg) by mouth 3 times a day. 135 tablet 3 10/27/19 25 026 Active Additional Information Patient taking differently:40 mg oral2 times daily, Reported on 11/23/2024 magnesium oxide (Mag-Ox) 400 mg (241.3 mg elemental) tabletIndications: Persistent atrial fibrillation (Multi) Take 1 tablet by mouth 2 times a day. 11/12/19 25 026 Active Active Problems Problem Noted Date Diagnosed Date BMI 24.0-24.9, adult 10/26/2024 Prolonged QT interval 10/26/2024 TIA (transient ischemic attack) 04/20/2024 Stenosis of right carotid artery 01/28/2024 Former smoker 07/30/2023 Anemia 01/29/2023 Essential hypertension 01/29/2023 Hyperlipidemia 01/29/2023 Persistent atrial fibrillation (Multi) Single vessel coronary disease 01/29/2023 High risk medication use 01/29/2023 Stroke (Multi) 01/29/2023 BMI 26.0-26.9,adult 01/29/2023 Encounters Date Type Department Care Team Description 11/23/2024 2:00 PM EDT Ancillary Procedure [address] [place] [address] Kristin Mcmanus LPN High risk medication use; Persistent atrial fibrillation (Multi) Discharge Disposition: Home 11/23/2024 Travel 11/11/[address] [place] [address] Irena Lynn LPN Persistent atrial fibrillation (Multi) 11/09/2024 2:00 PM EDT Ancillary Procedure [address] [place] [address] Clyde Yoo MA Persistent atrial fibrillation (Multi) (Primary Dx); High risk medication use 11/09/2024 Travel 10/26/2024 2:30 PM EDT Office Visit [address] [phone] Sherlyn Larson MD Persistent atrial fibrillation (Multi) (Primary Dx); Single vessel coronary disease; High risk medication use; Stenosis of right carotid artery; Mixed hyperlipidemia; Essential hypertension; Anemia, unspecified type; Cerebrovascular accident (CVA), unspecified mechanism (Multi); Former smoker; BMI 24.0-24.9, adult; Prolonged QT interval 10/26/2024 Travel from Last 3 Months Immunizations Immunization Administration Dates Next Due Influenza, Unspecified 03/23/2017 Pfizer Purple Cap SARS-CoV-2 01/15/2021,06/13/19 21,05/21/2020 Family History Medical History Relation Name Comments No Known Problems Father No Known Problems Mother Relation Name Status Comments Father Mother Social History Tobacco Use Types Packs/Day Years Used Date Smoking Tobacco: Former Cigarettes Q uit: 2019 Smokeless Tobacco: Never Tobacco Cessation:Counseling Given: Not Answered Alcohol Use Standard Drinks/Week Comments Yes 2 (1 standard drink = 0.6 oz pur e alcohol) occasionally Sex and Gender Information Value Date Recorded Sex Assigned at Not on file Legal Sex Male 6:44 PM EST Gender Identity Not on file Sexual Orientation Not on file Last Filed Vital Signs Vital Sign Reading Time Taken Comments Blood Pressure 102/58 11/23/2024 4:38 PM EDT Pulse 64 11/23/2024 4:38 PM EDT Temperature - - Respiratory Rate - - Oxygen Saturation - - Inhaled Oxygen Concentration - - Weight 82.6 kg (182 lb) 11/23/2024 4:38 PM EDT Height 185.4 cm (6' 1 ) 11/23/2024 4:38 PM EDT Body Mass Index 24.01 11/23/2024 4:38 PM EDT Plan of Treatment Upcoming Encounters Date Type Department Care Team (Late st Contact Info) Description 06/08/2025 3:00 PM EDT Office Visit [facility] [address] [phone] Sherlyn Larson MD [address] [facility] [address] [place] [address] [place] [address] Health Maintenance Due Date Last Done Comments Lipid Panel 1945 Medicare Annual Wellness Visit (AWV) 1945 Hepatitis C Screening 1964 Pneumococcal Vaccine (1 of 2 - PCV) 1965 DTaP/Tdap/Td Vaccines (1 - Tdap) 1968 Zoster Vaccines (1 of 2) 1996 RSV High Risk: (Elderly (60+ ) or Population) (1 - 1-dose 75+ series) 2021 Diabetes Screening 11/28/2022 11/28/2021 COVID-19 Vaccine (4 - 2024-2 6 season) 2024 01/15/2021, 06/12/2020, 05/21/2020 Influenza Vaccine (#1) 2024 03/23/2017 Colonoscopy Discontinued 04/18/2019 Colorectal Cancer Screening Discontinued Irritable Bowel Syndrome Discontinued 04/18/2019 CT Colonography Discontinued FIT-DNA (Cologuard) Discontinued FIT Discontinued HIB Vaccines Aged Out No longer eligi ble based on patient's age to complete this topic HPV Vaccines Aged Out No longer eligi ble based on patient's age to complete this topic Hepatitis A Vaccines Aged Out No long er eligible based on patient's age to complete this topic Hepatitis B Vaccines Aged Out No long er eligible based on patient's age to complete this topic IPV Vaccines Aged Out No longer eligi ble based on patient's age to complete this topic Meningococcal Vaccine Aged Out No tim el eligible based on patient's age to complete this topic Rotavirus Vaccines Aged Out No longer eligible based on patient's age to complete this topic Sigmoidoscopy Discontinued Procedures Procedure Name Priority Date/Time Associated Diagnosis Comments ECG 12-LEAD Routine 11/23/2024 1:19 PM EDT High risk medication use Persistent atrial fibrillation (Multi) ECG 12-LEAD Routine 11/09/2024 1:08 PM EDT High risk medication use Persistent atrial fibrillation (Multi) ECG 12-LEAD Routine 10/26/2024 2:30 PM EDT High risk medication use Persistent atrial fibrillation (Multi) COLONOSCOPY 04/18/2019 from Last 3 Months or Most Recently Relevant to Health Maintenance Results * ECG 12 Lead (11/23/2024 1:19 PM EDT) Only the most recent of3 resultswithin the time period is included. Narrative [facility] - 11/23/2024 4:55 PM EDT Sinus rhythm with occasional PACs QTc interval is 501 ms us Sherlyn Larson MD ECG ORDERABLES Edited Res ult - Final [facility] * COLONOSCOPY (04/18/2019) Anatomical Region Laterality Modality Endoscopy Narrative 04/18/2019 Ordered by an unspecified provider. us Onbase Conversion ENDOSCOPY PROCEDURE ORDERABLES Final Result from Last 3 Months or Most Recently Relevant to Health Maintenance Insurance MEDICARE PART A AND B Care Teams [facility] Department Supervisor Relationship Specialty Start Date End Date Raphael Avila MD [address] [facility] [place] [address] PCP - General Family Medicine 04/20/24
--- OUTSIDE RECORDS SUMMARY | 2024-12-15 09:23 | XMS_ITS | Patient Health Record ---
Author Organization [facility] in [place] Address [address] [place] [address] Care Team Providers Care Appraisal Analyst Name Role Phone PoloAlexiaDesiree Primary Care Provider Allergies Allergen (clinical drug ingredient) Drug/Non Drug Allergy documented on EMR Reaction Allergy Type Onset Date Status coconut allergenic extract Coconut (Diagnostic) Unknown Drug Allergy Active Results Component Value Reference Range Notes CBC AUTO DIFF (Not yet revie wed by provider) Interpretation: Performing Lab: Notes/Report: [facility] , White Blood Count 10.0 4.0-11.0 10 3/uL Red Blood Count 3.33 4.70-6.10 10 6/uL Hemoglobin 11.1 14.0-18.0 g/dL Hematocrit 33.4 42.0-54.0 % Mean Corpuscular Volume 100.3 80.0-94.0 fL Mean Corpuscular Hemoglobin 33.3 25.9-34.0 pg Mean Corpuscular HGB Conc 33.2 29.9-35.2 g/dL Red Cell Distribution Width 15.0 11.0-15.0 % Platelet Count 291 150-450 10 3/uL Mean Platelet Volume 10.0 9.5-13.5 fL Neutrophils Percent Auto 75.6 43.0-75.0 % Lymphocytes Percent Auto 13.2 20.5-60.0 % Monocytes Percent Auto 6.7 1.7-12.0 % Eosinophils Percent Auto 3.9 0.9-7.0 % Basophils Percent Auto 0.3 0.2-2.0 % Immature Granulocytes Pct Auto 0.3 0.0-0.5 % Neutrophils Absolute Auto 7.5 1.4-6.5 10 3/uL Lymphocytes Absolute Auto 1.3 1.2-3.8 10 3/uL Monocytes Absolute Auto 0.7 0.3-0.8 10 3/uL Eosinophils Absolute Auto 0.4 0.0-0.7 10 3/uL Basophils Absolute Auto 0.0 0.0-0.1 10 3/uL Immature Granulocytes Abs Auto 0.03 0.00-0.03 10 3/uL Performing Lab: see note ML - [facility] LB PROF CHEM 8 (BAS METB) (Not yet reviewed by provider) Interpretation: Performing Lab: Notes/Report: [facility] , Sodium 135 136-145 mmol/L Potassium 4.3 3.5-5.1 mmol/L Chloride 99 98-107 mmol/L Carbon Dioxide 26.3 21.0-32.0 mmol/L Anion Gap 14.0 Glucose 157 74-106 mg/dL Blood Urea Nitrogen 23.0 7.0-18.0 mg/dL Creatinine 1.64 0.70-1.30 mg/dL Estimated GFR ( Suki 50 >=60 mL/mi n/1.73m 2 Estimated GFR (Non- Marina 41 >=60 mL/mi n/1.73m 2 BUN Creatinine Ratio 14.0 Calcium 8.7 8.5-10.1 mg/dL Performing Lab: see note ML - [facility] LB Troponin I High Sensitivity (Not yet reviewed by provider) Interpretation: Performing Lab: Notes/Report: [facility] , Troponin I High Sensitivity 4.9 4.0-76.1 pg/m L CUT-OFF POINTS HAVE BEEN ESTABLISHED BASED ON THE FOURTH UNIVERSAL DEFINITION OF MYOCARDIAL INFARCTION. THE UPPER REFERENCE LIMIT (URL) OF TROPONIN, DEFINED THE 99TH PERCENTILE OF cTnI DISTRIBUTION IN A REFERENCE POPULATION, HAS BEEN CONFIRMED THE DECISION THRESHOLD FOR PA DIAGNOSIS. 99TH PERCENTILE = 76.2 PG/ML NOTE: HIGH-SENSITIVITY TROPONIN ASSAY IS NOT INTENDED TO BE USED IN ISOLATION BUT SHOULD BE INTERPRETED IN CONJUNCTION WITH OTHER DIAGNOSTIC AND CLINICAL INFORMATION. Performing Lab: see note ML - [facility] LB ECG 12 lead (Not yet reviewe d by provider) Interpretation: Performing Lab: Notes/Report: Source Facility: [facility]-[address] [place] [address] [place] [address] Electrocardiograph Report Draft Patient: SHAHRZAD MCNAIR MR#: [id number] : 1945 Acct:[id number] Age/Sex: 79 / M ADM Date: Loc: ER Attending Dr: Ordering Physician: Hui Loredo M.D. Date of Service: 12/15/24 Procedure(s): ECG 12 lead Accession Number(s): [id number] cc: [facility] Test Date: 2024-12-15 Pat Name: SHAHRZAD MCNAIR Department: Room: - Gender: Male [employer]: : 1945 Requested By: 1030 Order Number: [id number] Reading MD: Measurements Intervals [place] Rate: 67 P: 90 GA: 188 QRS: 55 QRSD: 86 T: 51 QT: 468 QTc: 483 Interpretive Statements 1100 Sinus rhythm 1474 with frequent supraventricular premature complexes 8304 Long QTc interval 9150 abnormal ECG No previous ECG available for comparison Dictated By: Aren Cabrera Signed By: DD/ TD/TT: Digital Sales Assistant: XR chest 1V (Not yet reviewe d by provider) Interpretation: Performing Lab: Notes/Report: Source Facility: [place] [address] XRay Report Signed Patient: SHAHRZAD MCNAIR MR#: [id number] : 1945 Acct:[id number] Age/Sex: 79 / M ADM Date: Loc: ER Attending Dr: Ordering Physician: Hui Loredo M.D. Date of Service: 12/15/24 Procedure(s): XR chest 1V Accession Number(s): [id number] cc: Raphael Avila M.D.; Hui Loredo M.D. [place] [id number] Patient Name: SHAHRZAD MCNAIR MRN: [id number] date: 1945 Sex: M Assigned Patient Location: ER Current Patient Location: ER Accession/Order Number: [id number] Exam Date: 12/15/2024 09:00 Report Date: 12/15/2024 09:14 At the request of: HUI LOREDO MD Procedure: XR chest 1V Single view chest: CLINICAL HISTORY: weak COMPARISON: Chest 04/05/2024 FINDINGS: The heart is normal in size. The lungs are clear. The pulmonary vasculature is normal. Mediastinum and hilar regions are unremarkable. No pleural effusions are seen. Visualized bones are intact. XR/XR chest 1V IMPRESSION: NO ACUTE PROCESS. Impression dictated by: Wilson Trinidad Jr., D.OMook 12/15/2024 9:14 AM Dictation Location: [place] [address] Electronically authenticated by: [id number] Y Date: 12/15/2024 09:14 Dictated By: Wilson Trinidad M.D. Signed By: 12/15/24916 DD/ 3 TD/TT: Digital Sales Assistant: XR elbow RT min 3V Reviewed date:08/22/2024 09:36:42 PM Interpretation: Performing Lab: Notes/Report: Source Facility: [place] [address] XRay Report Signed Patient: SHAHRZAD MCNAIR MR#: [id number] : 1945 Acct:[id number] Age/Sex: 78 / M ADM Date: 08/22/24 Loc: ER Attending Dr: Ordering Physician: Chevy Wood Date of Service: 08/22/24 Procedure(s): XR elbow RT min 3V Accession Number(s): [id number] cc: Chevy Wood; Raphael Avila M.D. [place] [id number] Patient Name: SHAHRZAD MCNAIR MRN: [id number] date: 1945 Sex: M Assigned Patient Location: ED.MAIN Current Patient Location: Accession/Order Number: [id number] Exam Date: 08/22/2024 08:07 Report Date: 08/22/2024 08:08 At the request of: CHEVY WOOD MD Procedure: XR elbow RT min 3V XR elbow RT min 3V 08/22/2024 3:28 AM SIGNS AND SYMPTOMS: Fall, right hip and elbow pain PROTOCOL: Frontal, lateral, and oblique radiographs of the right elbow COMPARISON: 03/02/2023 FINDINGS: Postoperative changes are noted along the proximal ulna axis with previous hardware repair of an olecranon fracture. There is no evidence of acute displaced fracture. A small osteochondroma is redemonstrated along the anterior margin of the distal humeral shaft. The joint spaces are preserved. No soft tissue swelling. No joint effusion. XR/XR elbow RT min 3V IMPRESSION: No fracture. Status post hardware fixation of a remote olecranon fracture. A small osteochondroma is redemonstrated along the anterior margin of the distal humerus. Impression dictated by: Robbie Fuentes M.D. 08/22/2024 8:08 AM Dictation Location: [place] [address] Electronically authenticated by: [id number] Y Date: 08/22/2024 08:08 Dictated By: Robbie Fuentes M.D. Signed By: 08/22/24 0811 DD/ 0808 TD/TT: Digital Sales Assistant: XR hip RT 2V w/ pelvis Reviewed date:08/22/2024 09:36:42 PM Interpretation: Performing Lab: Notes/Report: Source Facility: [place] [address] [place] [address] XRay Report Signed Patient: SHAHRZAD MCNAIR MR#: [id number] : 1945 Acct:[id number] Age/Sex: 78 / M ADM Date: 08/22/24 Loc: ER Attending Dr: Ordering Physician: Chevy Wood Date of Service: 08/22/24 Procedure(s): XR hip RT 2V w/ pelvis Accession Number(s): [id number] cc: Chevy Wood; Raphael Avila M.D. [place] [address] Patient Name: SHAHRZAD MCNAIR MRN: [facility]:[id number] date: 1945 Sex: M Assigned Patient Location: ED.MAIN Current Patient Location: Accession/Order Number: [id number] Exam Date: 08/22/2024 08:06 Report Date: 08/22/2024 08:07 At the request of: CHEVY WOOD MD Procedure: XR hip RT 2V w/ pelvis XR hip RT 2V w/ pelvis 08/22/2024 3:28 AM SIGNS AND SYMPTOMS: Fall, right hip and elbow pain PROTOCOL: Frontal radiograph the pelvis with frontal and frog-leg views of the right hip COMPARISON: 03/02/2023 FINDINGS: There is mild narrowing of the joint spaces of the hips. Degenerative changes are partly visualized in the lumbar spine and sacroiliac joints. There is no fracture or dislocation. The bony ring of the pelvis is intact. Vascular calcifications are present in the pelvis. XR/XR hip RT 2V w/ pelvis IMPRESSION: No fracture or dislocation. Mild degenerative changes are noted in the hips. Impression dictated by: Robbie Fuentes M.D. 08/22/2024 8:07 AM Dictation Location: [place] [address] Electronically authenticated by: [id number] Y Date: 08/22/2024 08:07 Dictated By: Robbie Fuentes M.D. 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 Measurements Intervals [place] Rate: 57 P: 50 GA: 192 QRS: 47 QRSD: 84 T: 51 QT: 526 QTc: 520 Interpretive Statements 1100 Sinus rhythm 8304 Long QTc interval 9150 abnormal ECG Compared to ECG 04/05/2024 07:36:09 No significant changes Electronically Signed On 08-22-2024 7:09:37 EDT by ANCA BUTLER M.D. Dictated By: ANCA BUTLER Signed By: 08/22/24 0710 DD/ TD/TT: Digital Sales Assistant: PROF ANDREEA Escobar (JAKE GALEANA) Reviewed date:08/22/2024 09:36:42 PM Interpretation: Performing Lab: Notes/Report: [facility] , Sodium 139 136-145 mmol/L Potassium 4.0 3.5-5.1 mmol/L Chloride 102 98-107 mmol/L Carbon Dioxide 29.9 21.0-32.0 mmol/L Anion Gap 11.1 Glucose 104 74-106 mg/dL Blood Urea Nitrogen 16.0 7.0-18.0 mg/dL Creatinine 1.48 0.70-1.30 mg/dL Estimated GFR ( Suki 56 >=60 mL/mi n/1.73m 2 Estimated GFR (Non- Marina 46 >=60 mL/mi n/1.73m 2 BUN Creatinine Ratio 10.8 Calcium 8.9 8.5-10.1 mg/dL Performing Lab: see note ML - [facility] LB CBC AUTO DIFF Reviewed date:08/22/2024 09:36:42 PM Interpretation: Performing Lab: Notes/Report: [facility] , White Blood Count 7.2 4.0-11.0 10 3/uL Red Blood Count 3.41 4.70-6.10 10 6/uL Hemoglobin 11.7 14.0-18.0 g/dL Hematocrit 34.1 42.0-54.0 % Mean Corpuscular Volume 100.0 80.0-94.0 fL Mean Corpuscular Hemoglobin 34.3 25.9-34.0 pg Mean Corpuscular HGB Conc 34.3 29.9-35.2 g/dL Red Cell Distribution Width 15.7 11.0-15.0 % Platelet Count 255 150-450 10 3/uL Mean Platelet Volume 9.9 9.5-13.5 fL Neutrophils Percent Auto 61.9 43.0-75.0 % Lymphocytes Percent Auto 24.1 20.5-60.0 % Monocytes Percent Auto 8.1 1.7-12.0 % Eosinophils Percent Auto 4.7 0.9-7.0 % Basophils Percent Auto 0.4 0.2-2.0 % Immature Granulocytes Pct Auto 0.8 0.0-0.5 % Neutrophils Absolute Auto 4.4 1.4-6.5 10 3/uL Lymphocytes Absolute Auto 1.7 1.2-3.8 10 3/uL Monocytes Absolute Auto 0.6 0.3-0.8 10 3/uL Eosinophils Absolute Auto 0.3 0.0-0.7 10 3/uL Basophils Absolute Auto 0.0 0.0-0.1 10 3/uL Immature Granulocytes Abs Auto 0.06 0.00-0.03 10 3/uL Performing Lab: see note ML - [facility] CA echo doppler complete Reviewed date:04/10/2024 02:49:18 PM Interpretation: Performing Lab: Notes/Report: Source Facility: [place] [address] Cardiology Report Signed Patient: SHAHRZAD MCNAIR MR#: [id number] : 1945 Acct:[id number] Age/Sex: 78 / M ADM Date: 04/05/24 Loc: MS 213-[address]: Eulalio Valencia D.O. Ordering Physician: Eulalio Valencia D.O. Date of Service: 04/05/24 Procedure(s): CA echo doppler complete Accession Number(s): [id number] cc: Raphael Avila M.D.; Eulalio Valencia D.O. Patient Name: SHAHRZAD MCNAIR MR#: [id number] : 1945 Exam Date: 04/05/2024 Ordering Doctor: EULALIO VALENCIA . ECHOCARDIOGRAM REPORT PROCEDURE: CA ECHO DOPPLER COMPLETE INDICATIONS: CVA, HTN, CAD COMPARISON: None. DESCRIPTION: COMPLETE ECHOCARDIOGRAM Real-time transthoracic echocardiography with 2D, M-mode, spectral and color flow Doppler performed. QUALITY: Technical quality was good. LEFT VENTRICLE: Normal chamber size. Thickened septal wall. Global left ventricular systolic function is normal. LV EF: Estimated left ventricular ejection fraction is 55-60%. DIASTOLIC: Diastolic function is indeterminate. ATRIAL SEPTUM: Agitated saline contrast does not reveal an intra-cardiac shunt. LEFT ATRIUM: Normal chamber size. RIGHT ATRIUM: Mild dilatation. RIGHT VENTRICLE: Normal chamber size. Normal right ventricular systolic function. TRICUSPID VALVE: Normal mobility and thickness. No stenosis with trivial regurgitation. Unable to assess right sided pressures due to lack of measurable tricuspid regurgitation. MITRAL VALVE: Normal mobility and thickness. No evidence of mitral valve stenosis. There is no mitral annular calcification. Trivial mitral regurgitation. AORTIC VALVE: Normal trileaflet appearance. Mildly calcified aortic valve. Normal leaflet mobility. No evidence of aortic valve stenosis. No aortic regurgitation. AORTIC ROOT: Normal diameter and appearance. PULMONIC VALVE: Normal thickness and mobility. No stenosis. Trivial regurgitation. PERICARDIUM: No evidence of pericardial effusion. IVC: Collapses with inspirations. Normal size. PLEURA: CONCLUSION: 1. Global left ventricular systolic function is normal. Estimated left ventricular ejection fraction is 55-60%. 2. Normal right ventricular size and systolic function. 3. No valvular dysfunction. 4. Agitated saline contrast does not reveal an intra-cardiac shunt. Adult Echocardiography Procedure Report Left Ventricle LVEDD (3.7 - 5.6 cm): 5.03 cm LVESD (2.2 - 4.0 cm): 3.11 cm LVIVS thickness (0.6 - 1.2 cm): 1.27 cm LVPW thickness (0.5 - 1.0 cm): 0.93 cm e': 0.06 m/s E - e': 16.08 LVOT Max Gradient: 2.73 mm[Hg] LVOT Area (cm2): 0.83 m/s Peak Velocity (LVOT): 0.83 m/s Mean Velocity (LVOT): 0.60 m/s LVOT Diameter 2.06 cm Left Ventricular Ejection Fraction: 55-60 % Left Atrium LA Volume Index (2D A2C): 33.07 ml/m2 Left Atrium Systolic Dimension: 2.84 cm Mitral Valve MV E to A Ratio: 0.85 Mitral Valve A-Wave Peak Velocity: 1.04 m/s Mitral Valve E-Wave Peak Velocity: 0.89 m/s Right Ventricle RV Internal Diastolic Dimension: 2.92 cm Aorta AO Root Diam: 2.61 cm Aortic Valve AoV Area (Peak Maldonado): 2.54 cm2, 2.54 cm2 AoV Area (VTI): 2.44 cm2, 2.44 cm2 Peak Velocity(Antegrade Flow): 1.09 m/s Peak Gradient(Antegrade Flow): 4.73 mm[Hg] Mean Velocity(Antegrade Flow): 0.73 m/s Mean Gradient(Antegrade Flow): 2.52 mm[Hg] Velocity Time Integral: 25.30 cm Tricuspid Valve Peak Velocity (Regurgitant Flow): 1.65 m/s Pulmonic Valve Peak Velocity: 0.93 m/s Peak Gradient: 4.15 mm[Hg], 2.82 mm[Hg] Right Atrium Right Atrium Systolic Pressure: 46.19 ml, 46.19 ml Dictated by: Anca Butler M.D. on 04/09/2024 at 13:18 Approved by: Anca Butler M.D. on 04/09/2024 at 13:25 Dictated By: ANCA BUTLER Signed By: 04/09/24 1326 DD/ 1325 TD/TT: Digital Sales Assistant: Reason For Referral No Information Medications Medication SIG (Take, Route, Frequency, Duration) Notes Start Date End Date Status Aspirin Adult Low Dose 81 MG 1 tablet Or ally Once a day Active Atorvastatin Calcium 80 MG 1 tablet Oral ly Once a day 10/12/2023 Active Nitroglycerin Active Sotalol HCl 80 MG TAKE 1 TABLET BY ELVIE TH EVERY 12 HOURS FOR 30 DAYS; Duration: 90 Active Lisinopril 10 MG TAKE 1/2 TABLET BY M OUT ONCE EVERYDAY; Duration: 90 Active Social History Tobacco Use: Social History Observation Description Date Details (start date - stop date) Former Smoker 03/23/1963 - 03/23/2019 Tobacco Control (Standard) Question Answer Notes Tobacco use: Former smoker When did you start smoking? 03/23/1963 When did you stop smoking? 03/23/2019 How long has it been since y ou last smoked? 1-5 years Additional Findings: Tobacco non-user Ex -very heavy cigarette smoker (40+/day) AUDIT-C (Standard) Question Answer Notes Did you have a drink contain ing alcohol in the past year? Yes How often did you have six o r more drinks on one occasion in the past year? Never (0 point) How many drinks did you have on a typical day when you were drinking in the past year? 1 or 2 drinks (0 point) How often did you have a dri nk containing alcohol in the past year? Monthly or less (1 point) Points 1 Interpretation Negative Problems Problem Type SNOMED Code ICD Code Onset Dates Problem Status W/U Status Risk Notes Problem Atrial fibrillation (03002491) Atrial fibrillation (I48.91) Active confirmed Problem Hyperlipidaemia (52251896) Hyperlipemia (E78.5) Active confirmed Problem Hypertension (76030597) Hypertension (I10) Active confirmed Problem COPD - Chronic obstructive pulmonary disease (07591999) COPD (chronic obstructive pulmonary disease) (J44.9) Active confirmed Problem Stroke (342063780) Stroke (I63.9) Active confir med Problem Myocardial infarction (56549059) PA (myocardial infarction) (I21.3) Active confirmed Problem Expressive aphasia (267266987) Expressive aphasia (R47.01) Active confirmed Problem Altered mental status (466014319) Altered mental status (R41.82) Active confirmed Problem Metabolic encephalopathy (03536245) Acute metabolic encephalopathy (G93.41) Active confirmed Problem Essential hypertension (49775695) BP (high blood pressure) (I10) Active confirmed Vital Signs Blood pressure diastolic 68 mm Hg 07/12/2024 Height 73 in 07/12/2024 Blood pressure systolic 112 mm Hg 07/12/2024 Weight 194.8 lbs 07/12/2024 BMI 25.7 kg/m2 07/12/2024 Encounters Encounter Location Date Provider Diagnosis [facility] [address] [place] [address] 04/06/2024 Desiree Cuellar [facility] [address] [place] [address] 09/27/2024 Desiree Cuellar Hypertension I10 [facility] [address] [place] [address] 10/12/2024 Desiree Cuellar [facility] [address] [place] [address] 04/11/2024 Desiree Cuellar Hypertension I10 [facility] [address] [place] [address] 07/12/2024 Desiree Polo Hypertension I10 Assessments Encounter Date Diagnosis (ICD Code) Assessment Notes Treatment Notes Treatment Clinical Notes Section Notes 04/11/2024 Hypertension (ICD-10 - I10) BP looks good fu cardiology 07/12/2024 Hypertension (ICD-10 - I10) continue meds fu cardiology as scheduled BP good today 09/27/2024 Hypertension (ICD-10 - I10) Plan Of Treatment Pending Test Test Name Order Date HEMOGLOBIN A1C (GLYCO) 09/27/2024 INSULIN, TOTAL 09/27/2024 LIPID PANEL (CHOL/TRIG/HDL/LDL) 09/28/19 CBC WITH DIFF 04/11/2024 URIC ACID 09/27/2024 PSA, TOTAL 04/11/2024 Holter Monitor 24 Hour 10/21/2023 CBC AUTO DIFF 12/15/2024 PROF CHEM 8 (BAS METB) 12/15/2024 THYROID PANEL (T4/TSH/FREE T3) ECG 12 lead 12/15/2024 Troponin I High Sensitivity 12/15/2024 XR chest 1V 12/15/2024 PSA, SCREENING 09/27/2024 CMP (COMP MET [facility]) w/eGFR CKD-EPI 2024 CMP (COMP MET [facility]) w/eGFR CKD-EPI 2024 CBC WITH DIFF 09/27/2024 Insurance Providers Payer Name Payer Address Payer Phone Subscriber Number Group Number Insured Name Patient Relationship to Insured Coverage Start Date Coverage End Date [place] [address] [place] [address] [id number] Shahrzad Mcnair Self - patient is the insured Medical (General) History Medical History History ICD Code Hypertension I10 COPD (chronic obstructive pulmonary dise ase) J44.9 Atrial fibrillation I48.91 Stroke I63.9 PA (myocardial infarction) I21.3 Surgical History Surgery Date(Month/Year) Tonsillectomy Cataract- bilateral Lumbar surgery- disc x2 Plate and Pin in Right Elbow CHOLECYSTECTOMY Hospitalization History Reason Date(Month/Year) Encephalopathy 09/2023
--- OUTSIDE RECORDS SUMMARY | 2024-12-15 09:23 | XMS_ITS | Clinical Summary ---
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 Name Role Phone Unavailable Primary Care Provider Unavailabl e Allergies Active Allergy Reactions Criticality Noted Date Comments Cocos Nucifera Anaphylaxis High 11/28/2021 Medications atorvastatin (LIPITOR) 80 MG tablet Take 80 mg by mouth daily Active SITagliptin (JANUVIA) 100 MG tablet Take 100 mg by mouth daily Active lisinopril (PRINIVIL;ZESTR IL) 10 MG tablet Take 1 tablet by mouth daily 30 tablet 3 2 Active metoprolol tartrate (LOPRESSOR) 25 MG tablet Take 1 tablet by mouth 2 times daily 60 tablet 3 2 Active tamsulosin (FLOMAX) 0.4 MG capsule Take 1 capsule by mouth daily 30 capsule 3 2 Active amiodarone (CORDARONE) 200 MG tablet Take 1 tablet by mouth 2 times daily for 9 doses 9 tablet 2 Active amiodarone (CORDARONE) 200 MG tablet Take 1 tablet by mouth daily 90 tablet 2 Active aspirin 81 MG EC tablet Take 81 mg by mouth daily 12/04/19 22 Discontinu ed(Stop Taking at Discharge) sotalol (BETAPACE) 120 MG tablet Take 60 mg by mouth 2 times daily 12/04/19 22 Discontinu ed(Stop Taking at Discharge) Active Problems Problem Noted Date Diagnosed Date 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 Atrial fibrillation with RVR 12/02/2021 Primary hypertension 12/02/2021 Type 2 diabetes mellitus wit hout complication, without long-term current use of insulin 12/02/2021 COPD (chronic obstructive pulmonary disease) 02/2022 PAF (paroxysmal atrial fibrillation) 11/29/2021 Anemia 11/29/2021 Cerebrovascular accident (CVA) 11/28/2021 Otitis media with effusion, left 11/28/2021 Family History Medical History Relation Name Comments Cancer Mother Relation Name Status Comments Mother Social History Tobacco Use Types Packs/Day Years Used Date Smoking Tobacco: Former Cigarettes Tobacco Cessation:Counseling Given: Not Answered Alcohol Use Standard Drinks/Week Comments Yes 0 (1 standard drink = 0.6 oz pur e alcohol) occ beer AUDIT-C Answer Date Recorded Q1: How often do you have a drink containing alc ohol? Monthly or less 11/28/2021 Q2: How many drinks containi ng alcohol do you have on a typical day when you are drinking? 5 or 6 11/28/2021 Q3: How often do you have si x or more drinks on one occasion? Less than monthly 11/28/2021 Sex and Gender Information Value Date Recorded Sex Assigned at Not on file Legal Sex Male 7:59 PM EDT Gender Identity Not on file Sexual Orientation Not on file Last Filed Vital Signs Vital Sign Reading Time Taken Comments Blood Pressure 130/83 12/04/2021 10:00 AM EDT Pulse 82 12/04/2021 10:00 AM EDT Temperature 36.6 C (97.9 F) 12/04/2021 8:00 AM EDT Respiratory Rate 18 12/04/2021 10:00 AM EDT Oxygen Saturation 95% 12/04/2021 10:00 AM EDT Inhaled Oxygen Concentration - - Weight 94 kg (207 lb 3.7 oz) 11/28/2021 6:29 AM EDT Height 185.4 cm (6' 1 ) 11/28/2021 6:29 AM EDT Body Mass Index 27.34 11/28/2021 6:29 AM EDT Plan of Treatment Health Maintenance Due Date Last Done Comments Depression Screen 1957 Diabetic Alb to Cr ratio (uACR) test 1964 Hepatitis C screen 1964 DTaP/Tdap/Td vaccine (1 - Tdap) 1965 Pneumococcal 50+ years Vaccine (1 of 2 - PCV) 1965 Shingles vaccine (1 of 2) 1996 Respiratory Syncytial Virus (RSV) or age 60 yrs+ (1 - 1-dose 75+ series) 2021 Lipids 11/28/2022 11/28/2021 GFR test (Diabetes, CKD 3-4, OR last GFR 15-59) 12/04/2022 12/04/2021, 12/03/2021, 12/01/2021, Additional history exists Annual Wellness Visit (Medicare) 02/16/2023 COVID-19 Vaccine ( season) 2023 01/15/2021, 06/12/2020, 05/21/2020 Flu vaccine (#1) 10/21/2024 A1C test (Diabetic or Prediabetic) Discontinued 11/28/2021 Hepatitis A vaccine Aged Out No longe r eligible based on patient's age to complete this topic Hepatitis B vaccine Aged Out No longe r eligible based on patient's age to complete this topic Hib vaccine Aged Out No longer eligi ble based on patient's age to complete this topic Meningococcal (ACWY) vaccine Aged Out No longer eligible based on patient's age to complete this topic Meningococcal B vaccine Aged Out No l onger eligible based on patient's age to complete this topic Polio vaccine Aged Out No longer elig ible based on patient's age to complete this topic Procedures Procedure Name Priority Date/Time Associated Diagnosis Comments BASIC METABOLIC PANEL Routine 12/04/2021 6:18 AM EDT LIPID PANEL Routine 11/28/2021 7:37 AM EDT HEMOGLOBIN A1C Routine 11/28/2021 3:59 AM EDT from Last 3 Months or Most Recently Relevant to Health Maintenance Results * (ABNORMAL) Basic Metabolic Panel (12/04/2021 6:18 AM EDT) Glucose 138(H) 70 - 99 mg/dL 12/04/2021 6:18 AM EDT [facility] BUN 12 8 - 23 mg/dL 12/04/2021 6:18 AM EDT [facility] Creatinine 0.69(L) 0.70 - 1.20 mg/dL 12/04/2021 6:18 AM EDT [facility] Calcium 8.3(L) 8.6 - 10.4 mg/dL 12/04/2021 6:18 AM EDT [facility] Sodium 133(L) 135 - 144 mmol/L 12/04/2021 6:18 AM EDT [facility] Potassium 4.0 3.7 - 5.3 mmol/L 12/04/2021 6:18 AM EDT [facility] Chloride 100 98 - 107 mmol/L 12/04/2021 6:18 AM EDT [facility] CO2 21 20 - 31 mmol/L 12/04/2021 6:18 AM EDT [facility] Anion Gap 12 9 - 17 mmol/L 12/04/2021 6:18 AM EDT [facility] GFR Non- >60 >60 mL/min 12/04/2021 6:18 AM EDT [facility] GFR >60 >60 mL/min 12/04/2021 6:18 AM EDT [facility] GFR Comment 12/04/2021 6:18 AM EDT [facility] Comment: Average GFR for 70 or more years old: 75 mL/min/1.73sq m Chronic Kidney Disease: <60 mL/min/1.73sq m Kidney failure: <15 mL/min/1.73sq m eGFR calculated using average adult body mass. Additional eGFR calculator available at: http://www.[employer]/multiple_crcl_2012.htm BLOOD SPECIMEN / Unknown 12/04/2021 6:18 AM EDT 12/04/2021 6:30 AM EDT Adina Do INSPECTOR CHIEF - ALCOHOL RUBBER CHEMISTRY ORDERABLES Fi nal Result [facility] [address] [phone] * (ABNORMAL) Lipid Panel (11/28/2021 7:37 AM EDT) Cholesterol 122 <200 mg/dL 11/28/2021 7:37 AM EDT [facility] Comment: Cholesterol Guidelines: <200 Desirable 200-240 Borderline >240 Undesirable HDL 34(L) >40 mg/dL 11/28/2021 7:37 AM EDT [facility] Comment: HDL Guidelines: <40 Undesirable 40-59 Borderline >59 Desirable LDL Cholesterol 74 0 - 130 mg/dL 11/28/2021 7:37 AM EDT [facility] Comment: LDL Guidelines: <100 Desirable 100-129 Near to/above Desirable 130-159 Borderline >159 Undesirable Direct (measured) LDL and calculated LDL are not interchangeable tests. Chol/HDL Ratio 3.6 <5 11/28/2021 7:37 AM EDT [facility] Comment: Triglycerides 71 <150 mg/dL 11/28/2021 7:37 AM EDT [facility] Comment: Triglyceride Guidelines: <150 Desirable 150-199 Borderline 200-499 High >499 Very high Based on AHA Guidelines for fasting triglyceride, December 2011. 11/28/2021 7:37 AM EDT 11/28/2021 7:49 AM EDT us Neal Velázquez MD CHEMISTRY ORDERABLES Final Resul t Performing Organization Address [place] de Phone Number [facility] [address] [place] [address] * (ABNORMAL) Hemoglobin A1c (11/28/2021 3:59 AM EDT) Hemoglobin A1C 8.1(H) 4.0 - 6.0 % 11/28/2021 3:59 AM EDT [facility] Estimated Avg Glucose 186 mg/dL 11/28/2021 3:59 AM EDT [facility] Comment: The ADA and AACC recommend providing the estimated average glucose result to permit better patient understanding of their HBA1c result. BLOOD SPECIMEN / Unknown 11/28/2021 3:59 AM EDT 11/28/2021 4:15 AM EDT us Neal Velázquez MD CHEMISTRY ORDERABLES Final Resul t Performing Organization Address [place] Co de Phone Number [facility] [address] [place] [address] from Last 3 Months or Most Recently Relevant to Health Maintenance Insurance MEDICARE MEDICARE Advance Directives * Full Code (Latest Code Status on File) Date Activated Date Inactivated Comments 11/28/2021 3:26 AM 12/04/2021 2:54 PM
--- OUTSIDE RECORDS SUMMARY | 2024-12-15 09:24 | XMS_ITS | CCD ---
Author Organization [facility] Care Team Providers Care Management Consultant Name Role Phone VERONICA LIZ Attending Unavailable HOUSE, VALENTE Primary Care Unavailable Michelle, Valente P Unavailable Unavailable Unavailable Saurabh Goyal Unavailable Unavailable Primary Care Provider UnavailBENITA Singh Referring Unavailable CHIRRI, ALLAN Admitting Unavailable CHIRRIANILL Attending Unavailable SONIA MCKINNEY Consulting Unavailable CRISTIN ORTEGA Consulting Unavailable JORGE LUISKENIA Consulting Unavailab le ZOGRAFFARIBA MCGUIRE Consulting Unavailable HUAN MAYO Consulting Unavailable BLOOD, GILLES Ortega Consulting Unavailable MASDANY HUBBARD I Consulting Unavailable MARKER ., DR POOL [...] RILEY Consulting Unavailable OBI MIDDLETON Consulting Unavailable FARIBA MCCLURE Consulting Unavailable MICHELLE, DR WANG Primary Care Unavailable MICHELLE, DR WANG Admitting Unavailable HOUSE, DR WANG Attending Unavailable HOUSE, DR WANG Consulting Unavailable HOUSE, DR WANG Primary Care Unavailable JUSTNE, DR MCDANIEL Admitting Unavailable JUSTEN, DR MCDANIEL Attending Unavailable JUSTEN, DR MCDANIEL Consulting Unavailable DONAVAN, DR REINA Palacios Consulting Unavailable MICHELLE, DR WANG Primary Care Unavailable ZIEBER, DR RAMESH Dixon Consulting Unavailable SHAIKH Eleni CAMPOS Attending Unavailable SHAIKH Eleni CAMPOS Admitting Unavailable OSVALDO, SOUMYA Consulting Unavailable SHAIKH Eleni CAMPOS Consulting Unavailable STRAWSERRIC Consulting Unavailable OBI MIDDLETON Consulting Unavailable REINA GOMEZ Consulting Unavailable MICHELLE, DR WANG Primary Care Unavailable SOUMYA RILEY Attending Unavailable OSVALDO, SOUMYA Admitting Unavailable OSVALDO, SOUMYA Consulting Unavailable RYAN, LOULOU Consulting Unavailable VICENTA MARCH Consulting Unavailable HOUSE, DR WANG Primary Care Unavailable OSVALDO, SOUMYA Attending Unavailable OSVALDO, SOUMYA Admitting Unavailable OSVALDO, SOUMYA Consulting Unavailable OSITO CUELLO Consulting Unavailable HOUSE, DR WANG Primary Care Unavailable PAY ., DR ORLANDO Admitting Unavailable PAY ., DR ORLANDO Attending Unavailable TOLEDO, DR REINA Palacios Consulting Unavailable PAY ., DR ORLANDO Consulting Unavailable KENY GREENE Consulting Unavailable Traboulssi, Mourhaf Referring Unavailable Traboulssi, Mourhaf Attending Unavailable House, Dr. Valente Santacruz Primary Care Unava ilable Traboulssi, Mourhaf Referring Unavailable Traboulssi, Mourhaf Attending Unavailable House, Dr. Valente Santacruz Primary Care Unava ilable Jeevan Espinoza Attending Unavailable House, Dr. Valente Santacruz Primary Care Unava ilable Traboulssi, Mourhaf Referring Unavailable Traboulssi, Mourhaf Attending Unavailable House, Dr. Valente Santacruz Primary Care Unava ilable Traboulssi, Mourhaf Attending Unavailable Traboulssi, Mourhaf Referring Unavailable House, Dr. Valente Santacruz Primary Care Unava ilable House Valente CARDOSO Primary Care Provider Unavailable Primary Care Provider Unavailabl e Unallocated , Noms Provider [facility] mi[facility] Rosy Liz MDf Unavailable Jeevan Espinoza Consulting Unavailable Candis Pearson Admitting Unavailable Candis Pearson Attending Unavailable Valente Martinez Primary Care Unavailable Zachariah Ochoa MD Primary Care Provider Zachariah Ochoa MD Primary Care Provider 1( [phone] MARCIANO HI Attending Unavailable MARCIANO HI Attending Unavailable MARCIANO HI Attending Unavailable MARCIANO HI Attending Unavailable MARCIANO HI Attending Unavailable TRABOULSSI, MOURHAF Attending Unavailable SERGEOULSSI, MOURHAF Referring Unavailable ZACHARIAH OCHOA Primary Care Unavailable SHALONDA, MOURHAF Referring Unavailable ZACHARIAH OCHOA Primary Care Unavailable TRABOULSSI, MOURHAF Attending Unavailable TRABOULSSI, MOURHAF Referring Unavailable VERONICA LIZ Attending Unavailable ZACHARIAH OCHOA Primary Care Unavailable VERONICA LIZ Referring Unavailable ZACHARIAH OCHOA Primary Care Unavailable Allergies Allergy Classification Reported Allergen(s) Allergy Type Date of Onset Reaction(s) Facility (2 sources) Coconut extract Drug Allergy Unknown [facility] Other (1 source) coconut allergenic extract Drug Allergy 11-28-2021 Anaphylaxis [facility] (1 source) Coconut extract Drug Allergy 01-31-2016 [facility] Repository (4 sources) Coconut Oil OIL; Translations: [Coconut Oil OIL] Allergy to drug (finding) [facility] 250 DO Work Phone: (8 sources) Coconut Oil; Translations: [COCONUT OIL] Drug Allergy 01-29-2023 Other [facility] (1 source) Coconut extract Drug Allergy 09-17-2021 [facility] Repository Medications Current Medications Medication Drug [...] mg tablet Indications: Hyperlipidemia, unspecified hyperlipidemia type Take 1 tablet (80 mg) by mouth once daily. 90 tablet 3 08/12/2024 Active belladonna alkaloids 16.2 mg / opium [...] 125 mcg ibuprofen 400 mg oral tablet (8 sources) Nonsteroidal Anti-inflammatory Drug take 1 tablet [...] sources) Angiotensin Converting Enzyme Inhibitor Start: 11-04-2023 take 0.5 tablet by mouth once daily lisinopril 10 mg tablet Take 0.5 tablets (5 mg) by mouth once daily. 11/04/2023 Active Start: 11-04-2023 lisinopril 10 mg tablet 1 [...] Start: 12-02-2021 loperamide (IMODIUM) capsule 2 mg magnesium oxide 400 mg oral tablet (1 source) Start: 11-11-2024 End: 11-11-2025 take 1 tablet by mouth twice daily magnesium oxide (Mag-Ox) 400 mg (241.3 mg elemental) tablet Indications: Persistent atrial fibrillation (Multi) Take 1 tablet by mouth 2 times a day. 11/11/2024 11/11/2025 Active metoprolol tartrate 25 mg oral tablet (5 [...] mg oral tablet (20 sources) Antiarrhythmic Start: 10-26-2024 End: 10-26-2025 take 0.5 tablet by mouth three times daily sotalol (Betapace) 80 mg tablet Indications: Persistent atrial fibrillation (Multi) Take 0.5 tablets (40 mg) by mouth 3 times a day. 135 tablet 3 10/26/2024 10/26/2025 Active Start: 12-11-2023 End: 10-26-2024 take 1 tablet by mouth every twelve hours sotalol (Betapace) 80 mg tablet Take 1 tablet (80 mg) by mouth every 12 hours. 12/11/2023 10/26/2024 Discontinued (Reorder) Start: 08-21-2023 End: 01-28-2024 take 1 tablet by mouth twice daily sotalol (sotalol AF) 120 mg tablet Indications: Persistent atrial fibrillation (Multi) Take 1 tablet (120 mg) by mouth 2 times a day. 180 tablet 3 08/21/2023 01/28/2024 Discontinued (Dose adjustment) Start: 03-11-2023 take 1 tablet by lavern th twice daily sotalol AF (Betapace AF) 120 [...] day. 0 Active take 1 tablet by alvern th every twelve hours Betapace AF 120 [...] Discontinued 5 MG PO Twice daily 60 April 01, 2019 1:00am May 30, 2020 [...] mg tablet Discontinued 75 MG PO Daily 30 April 01, 2019 1:00am April 20, 2019 [...] mL solution nitroglycerin 0.4 mg sublingual tablet (9 sources) Nitrate Vasodilator Start: 12-26-2021 Nitroglycerin 0.4 [...] Date Documented Date Episodic/Chronic Acquired foot deformities (4 sources) Right foot drop; Translations: [Foot drop, right foot] 01-07-2024 Episodic Acute cerebrovascular disease (19 sources) Cerebrovascular accident; Translations: [Cerebral infarction, unspecified] [...] type of vessel, [place] or graft] Onset: 09-22-2021 06-12-2020 Chronic Coronary atherosclerosis and other heart disease (1 source) Past history of procedure; Translations: [Coronary angioplasty status] 06-12-2020 Episodic Deficiency and other anemia (1 source) Anemia due to blood loss; Translations: [Iron deficiency anemia secondary to blood loss (chronic)] 06-12-2020 Chronic Deficiency and other anemia (2 sources) Microcytic anemia; Translations: [Iron deficiency anemia, unspecified] Episodic Deficiency and other anemia (6 sources) Anemia, unspecified; Translations: [ANEMIA UNSPECIFIED] Onset: 05-14-2022 Episodic Diabetes mellitus with complications (3 sources) Polyneuropathy due to diabetes mellitus; Translations: [...] left non-dominant side] Onset: 12-09-2021 Chronic Mycoses (5 sources) Onychomycosis; Translations: [Tinea unguium] 01-07-2024 Episodic Occlusion or stenosis of precerebral arteries (8 sources) Right carotid artery stenosis; Translations: [Occlusion and stenosis of right carotid artery] Onset: 01-28-2024 04-20-2024 Chronic Osteoarthritis (1 source) Unspecified osteoarthritis, unspecified site; Translations: [UNSPECIFIED OSTEOARTHRITIS UNS SITE] Onset: 04-23-2022 Chronic Other aftercare (8 sources) Drug therapy finding; Translations: [Long-term (current) use of other medications] Episodic Other aftercare (1 source) long term 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 care registered nurse (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) use of aspirin; Translations: [SNF CURRENT USE OF ASPIRIN] Onset: 04-23-2022 Episodic Other aftercare (3 sources) 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; Translations: [OTH MANAGER MERCHANDISE CURRENT DRUG THERAPY] Onset: 04-23-2022 Episodic Other aftercare (16 sources) Taking high risk medication; Translations: [Other snf (current) drug therapy] Onset: 01-29-2023 01-29-2023 Episodic [...] BMI 30.0-30.9 ADULT] Onset: 08-27-2021 Chronic Other screening for suspected conditions (not mental disorders or infectious disease) (6 sources) Hormone level - finding; Translations: [Other specified abnormal findings of blood chemistry] Onset: 10-26-2024 05-29-2020 Episodic Other skin disorders (4 sources) Asteatosis cutis; Translations: [Xerosis cutis] 01-07-2024 [...] OTH PART DIGESTV TRACT] Onset: 04-23-2022 Episodic Residual codes; unclassified (4 sources) Body mass index 20-24 - normal; Translations: [Body mass index (BMI) 24.0-24.9, adult] Onset: 10-26-2024 10-26-2024 Episodic Residual codes; unclassified (2 sources) Body mass index (BMI) 24.0-24.9, adult; Translations: [Body mass index (BMI) 24.0-24.9, adult] Onset: 10-26-2024 Episodic Screening and history of mental health and substance abuse codes (20 sources) Ex-smoker; Translations: [Personal history of tobacco use] Onset: 04-23-2022 07-30-2023 Episodic Comment on above: QUIT MAR 2019; Substance-related disorders (2 sources) Nicotine dependence, unspecified, uncomplicated; Translations: [Tobacco user] Onset: 06-10-2018 05-29-2020 Chronic Syncope (2 sources) Syncope and collapse; Translations: [Syncope] Onset: 04-23-2022 06-12-2020 Episodic Transient cerebral ischemia (10 sources) Transient cerebral ischemic attack, unspecified; Translations: [Transient cerebral ischemia] Onset: 04-20-2022 Chronic Unclassified (1 source) FDC (current) use of oral hypoglycemic drugs Onset: 06-10-2018 Unclassified (1 source) CONTACT W/AND (SUSP) EXPOS COVID-19; Translations: [CONTACT W/AND (SUSP) EXPOS COVID-19] Onset: 04-23-2022 Unclassified (2 sources) Other persistent atrial fibrillation; Translations: [Other persistent atrial fibrillation] Onset: 01-29-2023 Past or Other Problems Problem Classification Problem Date Documented Date Episodic/Chronic Acute bronchitis (1 source) Acute bronchiolitis, unspecified; Translations: [ACUTE BRONCHIOLITIS UNSPECIFIED] Onset: 08-23-2021 Episodic Deficiency and other anemia (20 sources) Anemia; Translations: [Anemia, unspecified] Onset: 11-29-2021 Episodic Fracture of upper limb (2 sources) [...] PERIOCULAR INIT] Onset: 08-26-2021 Episodic Other aftercare (1 source) FDC (current) use of oral hypoglycemic drugs; Translations: [SNF USE ORAL HYPOGLYCEMIC DX] Onset: 12-09-2021 Episodic [...] Episodic Other nutritional; endocrine; and metabolic disorders (19 sources) Overweight in adulthood with body mass [...] (BMI) 27.0-27.9, adult] Onset: 01-28-2024 Episodic Other upper respiratory disease (3 sources) Nasal congestion; Translations: [NASAL CONGESTION] Onset: 08-22-2021 Episodic Other upper respiratory infections (1 source) Acute pharyngitis, unspecified; Translations: [ACUTE PHARYNGITIS UNSPECIFIED] Onset: 08-23-2021 Episodic Unclassified (7 sources) Onset: 01-29-2023 Resolved: 04-20-2024 01-29-2023 Results Test Name Value Interpretation Reference Range Facility ECG 12 [place] 11-23-2024 Sinus rhythm with occasional PACs QTc Miri is 501 ms [facility] Work Phone: ECG 12 [place] 10-26-2024 Normal sinus rhythm with prolonged QTc interval of 517 ms [facility] Work Phone: ECG 12 [place] 04-20-2024 Normal sinus rhythm with 1 PVC and QTc interval is borderline prolonged at 500 malacic [facility] Work Phone: ECG 12 [place] 01-28-2024 Normal sinus rhythm with a QTc interval of 495 ms [facility] Work Phone: ECG 12 [place] 07-30-2023 Atrial fibrillation with nonspecific ST-T changes [facility] Work Phone: ECG 12 [place] 01-29-2023 Normal sinus rhythm with a QTc interval of 481 ms [facility] Work Phone: Tobacco Screening.on 023 Adult depression screening assessment No [facility] [employer] Work Phone: Fall risk assessment b) One or more fall s in the last year [facility] [employer] Work Phone: Tobacco use status [facility] b) No [facility] [employer] Work Phone: Office Visit (Cardiology)on 06-06-2022 Follow-up [...] try to retrieve retrieve his record from [place] Surgical History Problems History of Back surgery [...] Recorded: 06Jun2022 09:22AM Heart Rate80, L Radial Agocxkpp718, LUE, Sitting Jwrrbeyxx75, LUE, Sitting Height6 ft 1 in Eggifs051 lb BMI Heqhdcqhqk04.84 kg/m2 BSA Calculated2.2 Tobacco Useb) No Falls [...] irregular, p (more content not included)... Normal [place] Tobacco Screening.on 023 Fall risk assessment a) No falls within the last year [facility] [employer] 250 DO Work Phone: Tobacco use status [facility] b) No [facility] [employer] 250 DO Work Phone: Office Visit (Cardiology)on [...] Former smoker Tobacco Use Screening; Status:Complete; Done: 05Jun2022 Patient Instructions Please bring all medicines, vitamins, [...] with correct medication list Retrieve records from [place] Will come back tomorrow with medication bottles [...] reports he was in the hospital in [place] in [place] after a stroke. He does not know [...] 4. I to retrieve his record from [place] 5. I advised the patient TO bring [...] smoker (V15.82 (more content not included)... Normal [place] Tobacco Screening.on 023 Adult depression screening assessment No [facility] [employer] 250 DO Work Phone: Fall risk assessment b) One or more fall s in the last year [facility] 250 DO Work Phone: Tobacco use status [facility] b) No -[facility] 250 DO Work Phone: CBC AUTO DIFFon 05-14-2022 BASO # 0.0 103/ul Normal 0.0-0.1 [facility] Comment on above: Performed By: #### C BC ####[facility] [address] [place] [address]Dr. Sea Pugh Basophils/100 WBC (Bld) 0.5 % Normal 0.2-2.0 [facility] Comment on above: Performed By: #### C BC ####[facility] H[address] [place], [place] [address]Dr. Sea Pugh EO # 0.4 103/ul Normal 0.0-0.7 [facility] Comment on above: Performed By: #### C BC ####[facility] C[address] [place], [place] [address]Dr. Sea Pugh Eosinophils/100 WBC (Bld) 4.7 % Normal 0.9-7.0 [facility] Comment on above: Performed By: #### C BC ####[facility] [address] [place], [place] [address]Dr. Sea Pugh Erythrocyte distribution width (RBC) [Ratio] 13.7 % Normal 11.0-15.0 [facility] Comment on above: Performed By: #### C BC ####[facility] [address] [place], [place] [address]Dr. Sea Pugh Hematocrit (Bld) [Volume fraction] 40.5 % Critically low 42.0-54.0 [facility] Comment on above: Performed By: #### C BC ####[facility] Bd[address]tsne[address] [place], [place] [address]Dr. Sea Pugh Hemoglobin (Bld) [Mass/Vol] 13.5 g/dL Critically low 14.0-18.0 [facility] Comment on above: Performed By: #### C BC ####[facility] [address] [place], [place] [address]DrMook Pugh IG # 0.03 10e3/ul Normal 0.00-0.03 [facility] Comment on above: Performed By: #### C BC ####[facility] [address] [place] [address]Dr. Sea Pugh IG % 0.4 % Normal 0.0-0.5 [facility] Comment on above: Performed By: #### C BC ####[facility] [address] [place] [address]DrMook Pugh LYMPH # 2.0 103/ul Normal 1.2-3.8 [facility] Comment on above: Performed By: #### C BC ####[facility] [address] [place] [address]DrMook Pugh Lymphocytes/100 WBC (Bld) 25.4 % Normal 20.5-60.0 [facility] Comment on above: Performed By: #### C BC ####[facility] [address] [place] [address]DrMook Pugh MANUAL DIFF REQ NO Normal [facility] Comment on above: Performed By: #### C BC ####[facility] [address] [place] [address]DrMook Pugh MCH (RBC) [Entitic mass] 29.6 pg Normal 25.9-34.0 [facility] Comment on above: Performed By: #### C BC ####[facility] [address] [place] [address]DrMook Pugh MCHC (RBC) [Mass/Vol] 33.3 g/dL Normal 29.9-35.2 [facility] Comment on above: Performed By: #### C BC ####[facility] [address] [place] [address]DrMook Pugh MCV (RBC) [Entitic vol] 88.8 fL Normal 80.0-94.0 [facility] Comment on above: Performed By: #### C BC ####[facility] [address] [place] [address]DrMook Pugh MONO # 0.8 103/ul Normal 0.3-0.8 [facility] Comment on above: Performed By: #### C BC ####[facility] [address] [place] [id number]. Sea Pugh Monocytes/100 WBC (Bld) 10.4 % Normal 1.7-12.0 [facility] Comment on above: Performed By: #### C BC ####[facility] [address] [place] [id number]. Sea Pugh NEUT # 4.6 103/ul Normal 1.4-6.5 [facility] Comment on above: Performed By: #### C BC ####[facility] [address] [place] [id number]. Sea Pugh Neutrophils/100 WBC (Bld) 58.6 % Normal 43.0-75.0 [facility] Comment on above: Performed By: #### C BC ####[facility] Q[address] [place], [place] [address]Dr. Sea Pugh Platelet mean volume (Bld) [Entitic vol] 9.8 fL Normal 9.5-13.5 [facility] Comment on above: Performed By: #### C BC ####[facility] [address] [place], [place] [id number]. Sea Pugh PLT 243 103/ul Normal 150-450 [facility] Comment on above: Performed By: #### C BC ####[facility] [address] [place], [place] [address]Dr. Sea Pugh RBC 4.56 106/ul Critically low 4.70-6.10 [facility] Comment on above: Performed By: #### C BC ####[facility] [address] [place], [place] [address]Dr. Sea Pugh WBC 7.8 103/ul Normal 4.0-11.0 [facility] Comment on above: Performed By: #### C BC ####[facility] [address] [place], [place] [address]Dr. Sea Pugh CBC AUTO DIFFon 04-21-2022 BASO # 0.1 103/ul Normal 0.0-0.1 [facility] Comment on above: Performed By: #### H STROPN, CMP, CRP #### [facility] [address] [address] [address] Sea Pugh Basophils/100 WBC (Bld) 0.7 % Normal 0.2-2.0 [facility] Comment on above: Performed By: #### H STROPN, CMP, CRP #### [facility] [address] [place] [address] Dr. Sea Pugh EO # 0.3 103/ul Normal 0.0-0.7 [facility] Comment on above: Performed By: #### H STROPN, CMP, CRP #### [facility] [address] [place] [address] Dr. Sea Pugh Eosinophils/100 WBC (Bld) 4.9 % Normal 0.9-7.0 [facility] Comment on above: Performed By: #### H STROPN, CMP, CRP #### [facility] [address] [place] [address] Dr. Sea Pugh Erythrocyte distribution width (RBC) [Ratio] 14.0 % Normal 11.0-15.0 [facility] Comment on above: Performed By: #### H STROPN, CMP, CRP #### [facility] [address] [place] [address] Dr. Sea Pugh Hematocrit (Bld) [Volume fraction] 38.5 % Critically low 42.0-54.0 [facility] Comment on above: Performed By: #### H STROPN, CMP, CRP #### [facility] [address] [place] [address] Dr. Sea Pugh Hemoglobin (Bld) [Mass/Vol] 13.3 g/dL Critically low 14.0-18.0 [facility] Comment on above: Performed By: #### H STROPN, CMP, CRP #### [facility] [address] [place] [address] Dr. Sea Pugh IG # 0.02 10e3/ul Normal 0.00-0.03 [facility] Comment on above: Performed By: #### H STROPN, CMP, CRP #### [facility] [address] [address] [address] Sea Pugh IG % 0.3 % Normal 0.0-0.5 [facility] Comment on above: Performed By: #### H STROPN, CMP, CRP #### [facility] [address] [address] [address] Sea Pugh LYMPH # 1.5 103/ul Normal 1.2-3.8 [facility] Comment on above: Performed By: #### H STROPN, CMP, CRP #### [facility] [address] [address] [address] Sea Pugh Lymphocytes/100 WBC (Bld) 22.7 % Normal 20.5-60.0 [facility] Comment on above: Performed By: #### H STROPN, CMP, CRP #### [facility] [address] [place] [address] Dr. Sea Pugh MANUAL DIFF REQ NO Normal [facility] Comment on above: Performed By: #### H STROPN, CMP, CRP #### [facility] [address] [address] [address] Sea Pugh MCH (RBC) [Entitic mass] 29.4 pg Normal 25.9-34.0 [facility] Comment on above: Performed By: #### H STROPN, CMP, CRP #### [facility] [address] [place] [address] Dr. Sea Pugh MCHC (RBC) [Mass/Vol] 34.5 g/dL Normal 29.9-35.2 [facility] Comment on above: Performed By: #### H STROPN, CMP, CRP #### [facility] [address] [place] [address] Dr. Sea Pugh MCV (RBC) [Entitic vol] 85.0 fL Normal 80.0-94.0 [facility] Comment on above: Performed By: #### H STROPN, CMP, CRP #### [facility] [address] [place] [address] Dr. Sea Pugh MONO # 0.7 103/ul Normal 0.3-0.8 [facility] Comment on above: Performed By: #### H STROPN, CMP, CRP #### [facility] [address] [address] [address] Sea Pugh Monocytes/100 WBC (Bld) 10.2 % Normal 1.7-12.0 [facility] Comment on above: Performed By: #### H STROPN, CMP, CRP #### [facility] [address] [address] [address] Sea Pugh NEUT # 4.1 103/ul Normal 1.4-6.5 [facility] Comment on above: Performed By: #### H STROPN, CMP, CRP #### [facility] [address] [place] [address] Dr. Sea Pugh Neutrophils/100 WBC (Bld) 61.2 % Normal 43.0-75.0 [facility] Comment on above: Performed By: #### H STROPN, CMP, CRP #### [facility] [address] [address] [address] Sea Pugh Platelet mean volume (Bld) [Entitic vol] 9.1 fL Critically low 9.5-13.5 [facility] Comment on above: Performed By: #### H STROPN, CMP, CRP #### [facility] [address] [place] [address] Dr. Sea Pugh PLT 216 103/ul Normal 150-450 [facility] [facility] Comment on above: Performed By: #### H STROPN, CMP, CRP #### [facility] [address] [place] [address] Dr. Sea Pugh RBC 4.53 106/ul Critically low 4.70-6.10 [facility] Comment on above: Performed By: #### H STROPN, CMP, CRP #### [facility] [address] [address] [address] Sea Pugh WBC 6.8 103/ul Normal 4.0-11.0 [facility] Comment on above: Performed By: #### H STROPN, CMP, CRP #### [facility] [address] [address] [address] Sea Pugh ECHOCARDIO M/2D COMPLETEon 0 04-21-2022 ECHOCARDIO M/2D COMPLETE Patient: SHAHRZAD EDGAR Exam Date: 04/21/2022 : 1945 Gender:M Ordering : SHAIKH Marya CAMPOS . Admission #: [id number] Family : Order #: [id number] CLICK HERE TO VIEW EXAM ECHOCARDIOGRAM REPORT PROCEDURE: CARDIO PULMONARY ECHOCARDIO M/2D COMP INDICATIONS: Elevated troponin, TIA, HX:TN COMPARISON: None. DESCRIPTION: COMPLETE ECHOCARDIOGRAM Real-time transthoracic [...] Chan M.D. on 04/21/2022 at 14:57 Normal [facility] MRI BRAIN WO CONon MRI BRAIN WO CON EXAMINATION: MRI BRAIN [...] RAMESH DE SANTIAGO Date: 2022-04-21 14:41 Normal [facility] POINT OF CARE GLUCOSEon - Glucose [Mass/Vol] 180 mg/dL Critically high 74-106 T [facility] Comment on above: Performed By: #### P OCGLUC ####[facility] [address] [address]Dr. Sea Pugh PROF CHEM 8 (BAS METB)on Anion gap [Moles/Vol] 13.5 mmol/L Normal [facility] Comment on above: Performed By: #### D DIM #### [facility] [address] [address] [address] Sea Pugh Calcium [Mass/Vol] 8.7 mg/dL Normal 8.5-10.1 [facility] Comment on above: Performed By: #### D DIM #### [facility] [address] [address] [address] Sea Pugh Chloride [Moles/Vol] 100 mmol/L Normal 98-107 [facility] Comment on above: Performed By: #### D DIM #### [facility] [address] [address] [address] Sea Pugh CO2 [Moles/Vol] 27.2 mmol/L Normal 21.0-32.0 [facility] Comment on above: Performed By: #### D DIM #### [facility] [address] [address] [address] Sea Pugh Creatinine [Mass/Vol] 1.27 mg/dL Normal 0.70-1.30 [facility] Comment on above: Performed By: #### D DIM #### [facility] [address] [address] [address] Sea Pugh EGFR-AF DOMINICAN >60 Normal >=60 [facility] Comment on above: Performed By: #### D DIM #### [facility] [address] [address] [address] Sea Pugh EGFR-NON AF DOMINICAN 55 mL/min/1.73m2 Critically low >=60 [facility] Comment on above: Performed By: #### D DIM #### [facility] [address] [address] [address] Sea Pugh Glucose [Mass/Vol] 134 mg/dL Critically high 74-106 T [facility] Comment on above: Performed By: #### D DIM #### [facility] [address] [address] [address] Sea Pugh Potassium [Moles/Vol] 3.7 mmol/L Normal 3.5-5.1 [facility] Comment on above: Performed By: #### D DIM #### [facility] [address] [address] [address] Sea Pugh Sodium [Moles/Vol] 137 mmol/L Normal 136-145 [facility] Comment on above: Performed By: #### D DIM #### [facility] [address] [address] [address] Sea Pugh Urea nitrogen [Mass/Vol] 14.0 mg/dL Normal 7.0-18.0 [facility] Comment on above: Performed By: #### D DIM #### [facility] [address] [address] [address] Sea Pugh Urea nitrogen/Creatinine [Mass ratio] 11.0 mg/mg Normal [facility] Comment on above: Performed By: #### D DIM #### [facility] [address] [address] [address] Sea Pugh CARDIAC SRINIVASAN 3-6on 3 CK [Catalytic activity/Vol] 282 U/L Normal 39-308 [facility] Comment on above: Performed By: #### H STROPN, CMP, CRP #### [facility] [address] [address] [address] Sea Pugh CK.MB [Mass/Vol] 4.34 ng/mL Critically high <=3.60 [facility] Comment on above: Performed By: #### H STROPN, CMP, CRP #### [facility] [address] [address] [address] Sea Pugh HSTROP 113.2 pg/mL Critically high 4.0-76.[address] [facility] Comment on above: Result Comment: CUT- OFF POINTS HAVE BEEN ESTABLISHED BASED ON THE FOURTH UNIVERSAL DEFINITIONS OF MYOCARDIAL INFARCTION. THE UPPER REFERENCE LIMIT (URL) OF TROPONIN, DEFINED THE 99TH PERCENTILE OF cTnI DISTRIBUTION IN A REFERENCE POPULATION, HAS BEEN CONFIRMED THE DECISION THRESHOLD FOR [place] DIAGNOSIS. Performed By: #### H STROPN, CMP, CRP #### [facility] [address] [address] [address] Sea Pugh CBC AUTO DIFFon 04-20-2022 BASO # 0.0 103/ul Normal 0.0-0.1 [facility] Comment on above: Performed By: #### H STROPN, CMP, CRP #### [facility] [address] [address] [address] Sea Pguh Basophils/100 WBC (Bld) 0.5 % Normal 0.2-2.0 [facility] Comment on above: Performed By: #### H STROPN, CMP, CRP #### [facility] [address] [address] [address] Sea Pugh EO # 0.1 103/ul Normal 0.0-0.7 [facility] Comment on above: Performed By: #### H STROPN, CMP, CRP #### [facility] [address] [address] [address] Sea Pugh Eosinophils/100 WBC (Bld) 0.6 % Critically low 0.9-7.0 [facility] Comment on above: Performed By: #### H STROPN, CMP, CRP #### [facility] [address] [address] [address] Sea Pugh Erythrocyte distribution width (RBC) [Ratio] 13.6 % Normal 11.0-15.0 [facility] Comment on above: Performed By: #### H STROPN, CMP, CRP #### [facility] [address] [address] [address] Sea Pugh Hematocrit (Bld) [Volume fraction] 37.2 % Critically low 42.0-54.0 [facility] Comment on above: Performed By: #### H STROPN, CMP, CRP #### [facility] [address] [address] [address] Sea Pugh Hemoglobin (Bld) [Mass/Vol] 13.3 g/dL Critically low 14.0-18.0 [facility] Comment on above: Performed By: #### H STROPN, CMP, CRP #### [facility] [address] [place] [address] Dr. Sea Pugh IG # 0.04 10e3/ul Critically high 0.00-0.03 [facility] Comment on above: Performed By: #### H STROPN, CMP, CRP #### [facility] [address] [place] [address] Dr. Sea Pugh IG % 0.5 % Normal 0.0-0.5 [facility] Comment on above: Performed By: #### H STROPN, CMP, CRP #### [facility] [address] [place] [address] Dr. Sea Pugh LYMPH # 1.2 103/ul Normal 1.2-3.8 [facility] Comment on above: Performed By: #### H STROPN, CMP, CRP #### [facility] [address] [place] [address] Dr. Sea Pugh Lymphocytes/100 WBC (Bld) 14.7 % Critically low 20.5-60.0 [facility] Comment on above: Performed By: #### H STROPN, CMP, CRP #### [facility] [address] [place] [address] Dr. Sea Pugh MANUAL DIFF REQ NO Normal [facility] Comment on above: Performed By: #### H STROPN, CMP, CRP #### [facility] [address] [address] [address] Sea Pugh MCH (RBC) [Entitic mass] 29.6 pg Normal 25.9-34.0 [facility] Comment on above: Performed By: #### H STROPN, CMP, CRP #### [facility] [address] [address] [address] Sea Pugh MCHC (RBC) [Mass/Vol] 35.8 g/dL Critically high 29.9-35.2 [facility] Comment on above: Performed By: #### H STROPN, CMP, CRP #### [facility] [address] [address] [address] Sea Pugh MCV (RBC) [Entitic vol] 82.9 fL Normal 80.0-94.0 [facility] Comment on above: Performed By: #### H STROPN, CMP, CRP #### [facility] [address] [address] [address] Sea Pugh MONO # 0.7 103/ul Normal 0.3-0.8 [facility] Comment on above: Performed By: #### H STROPN, CMP, CRP #### [facility] [address] [address] [address] Sea Pugh Monocytes/100 WBC (Bld) 9.4 % Normal 1.7-12.0 [facility] Comment on above: Performed By: #### H STROPN, CMP, CRP #### [facility] [address] [address] [address] Sea Pugh NEUT # 5.9 103/ul Normal 1.4-6.5 [facility] Comment on above: Performed By: #### H STROPN, CMP, CRP #### [facility] [address] [address] [address] Sea Pugh Neutrophils/100 WBC (Bld) 74.3 % Normal 43.0-75.0 [facility] Comment on above: Performed By: #### H STROPN, CMP, CRP #### [facility] [address] [address] [address] Sea Pugh Platelet mean volume (Bld) [Entitic vol] 9.4 fL Critically low 9.5-13.5 [facility] Comment on above: Performed By: #### H STROPN, CMP, CRP #### [facility] [address] [address] [address] Sea Pugh PLT 215 103/ul Normal 150-450 [facility] Comment on above: Performed By: #### H STROPN, CMP, CRP #### [facility] [address] [address] [address] Sea Pugh RBC 4.49 106/ul Critically low 4.70-6.10 [facility] Comment on above: Performed By: #### H STROPN, CMP, CRP #### [facility] [address] [address] [address] Sea Pugh WBC 7.9 103/ul Normal 4.0-11.0 [facility] Comment on above: Performed By: #### H STROPN, CMP, CRP #### [facility] [address] [address] [address] Sea Pugh [facility] SARS-CoV-2 (COVID-19) RNA [place]+probe Ql (Unsp spec) Not detected Normal NOT DETECTED [facility] Comment on above: Result Comment: When [...] for this test is supported by the Batting [employer] Operator of Health and Human Service's declaration that [...] used). Performed By: #### D DIM #### [facility] [address] [address] [address] Sea Pugh POINT OF CARE GLUCOSEon 03-24 Glucose [Mass/Vol] 134 mg/dL Critically high 74-106 T [facility] Comment on above: Performed By: #### D DIM #### [facility] [address] [address] [address] Sea Pugh PROF CHEM 8 (BAS METB)on Anion gap [Moles/Vol] 15.3 mmol/L Normal [facility] Comment on above: Performed By: #### B MP ####[facility] [address] [address]Dr. Sea Pugh Calcium [Mass/Vol] 8.9 mg/dL Normal 8.5-10.1 [facility] Comment on above: Performed By: #### B MP ####[facility] [address] [place], [place] [address]Dr. Sea Pugh Chloride [Moles/Vol] 101 mmol/L Normal 98-107 [facility] Comment on above: Performed By: #### B MP ####[facility] [address] [address]Dr. Sea Pugh CO2 [Moles/Vol] 25.5 mmol/L Normal 21.0-32.0 [facility] Comment on above: Performed By: #### B MP ####[facility] [address] [address]Dr. Sea Pugh Creatinine [Mass/Vol] 1.09 mg/dL Normal 0.70-1.30 [facility] Comment on above: Performed By: #### B MP ####[facility] [address] [address]Dr. Sea Pugh EGFR-AF DOMINICAN >60 Normal >=60 [facility] Comment on above: Performed By: #### B MP ####[facility] [address] [address]Dr. Sea Pugh EGFR-NON AF DOMINICAN >60 Normal >=60 [facility] Comment on above: Performed By: #### B MP ####[facility] [address] [id number][address] Sea Pugh Glucose [Mass/Vol] 150 mg/dL Critically high 74-106 T [facility] Comment on above: Performed By: #### B MP ####[facility] [address] [place], [place] [address]Ft. Sea Pugh Potassium [Moles/Vol] 3.8 mmol/L Normal 3.5-5.1 [facility] Comment on above: Performed By: #### B MP ####[facility] [address] [id number]. Sea Pugh Sodium [Moles/Vol] 138 mmol/L Normal 136-145 [facility] Comment on above: Performed By: #### B MP ####[facility] [address] [address]Dr. Sea Pugh Urea nitrogen [Mass/Vol] 11.0 mg/dL Normal 7.0-18.0 [facility] Comment on above: Performed By: #### B MP ####[facility] [address] [id number]. Sea Pugh Urea nitrogen/Creatinine [Mass ratio] 10.1 mg/mg Normal [facility] Comment on above: Performed By: #### B MP ####[facility] [address] [id number][address] Sea Pugh TROPONIN, HIGH SENSITIVITYon 04-20-2022 HSTROP 136.3 pg/mL Critically high 4.0-76.1 [facility] Comment on above: Result Comment: CUT- OFF POINTS HAVE BEEN ESTABLISHED BASED ON THE FOURTH UNIVERSAL DEFINITIONS OF MYOCARDIAL INFARCTION. THE UPPER REFERENCE LIMIT (URL) OF TROPONIN, DEFINED THE 99TH PERCENTILE OF cTnI DISTRIBUTION IN A REFERENCE POPULATION, HAS BEEN CONFIRMED THE DECISION THRESHOLD FOR [place] DIAGNOSIS. Performed By: #### D DIM #### [facility] [address] [place], [place] [address] Dr. Sea Pugh HSTROP 141.1 pg/mL Critically high 4.0-76.1 [facility] Comment on above: Result Comment: CUT- OFF POINTS HAVE BEEN ESTABLISHED BASED ON THE FOURTH UNIVERSAL DEFINITIONS OF MYOCARDIAL INFARCTION. THE UPPER REFERENCE LIMIT (URL) OF TROPONIN, DEFINED THE 99TH PERCENTILE OF cTnI DISTRIBUTION IN A REFERENCE POPULATION, HAS BEEN CONFIRMED THE DECISION THRESHOLD FOR [place] DIAGNOSIS. Performed By: #### H STROPN #### [facility] [address] [address] [address] Sea Pugh CARDIAC SRINIVASAN ADMITon 023 CK [Catalytic activity/Vol] 266 U/L Normal 39-308 [facility] Comment on above: Performed By: #### B DIANA, CMADM ####[facility] [address] [id number]. Sea Pugh CK.MB [Mass/Vol] 4.18 ng/mL Critically high <=3.60 [facility] Comment on above: Performed By: #### B DIANA, DOUGIEDM ####[facility] [address] [address]Dr. Sea Pugh HSTROP 32.5 pg/mL Normal 4.0-76.1 [facility] Comment on above: Result Comment: CUT- OFF POINTS HAVE BEEN ESTABLISHED BASED ON THE FOURTH UNIVERSAL DEFINITIONS OF MYOCARDIAL INFARCTION. THE UPPER REFERENCE LIMIT (URL) OF TROPONIN, DEFINED THE 99TH PERCENTILE OF cTnI DISTRIBUTION IN A REFERENCE POPULATION, HAS BEEN CONFIRMED THE DECISION THRESHOLD FOR TN DIAGNOSIS. Performed By: #### B DIANA, CMADM ####[facility] [address] [id number]. Sea Pugh RAMONE 241 ng/mL Critically high 16-96 [facility] Comment on above: Performed By: #### B DIANA, CMADM ####[facility] [address] [id number]. Sea Pugh CBC AUTO DIFFon 04-19-2022 BASO # 0.0 103/ul Normal 0.0-0.1 [facility] Comment on above: Performed By: #### C BC #### [facility] [address] [address] [address] Sea Pugh Basophils/100 WBC (Bld) 0.3 % Normal 0.2-2.0 [facility] Comment on above: Performed By: #### C BC #### [facility] [address] [address] [address] Sea Pugh EO # 0.2 103/ul Normal 0.0-0.7 [facility] Comment on above: Performed By: #### C BC #### [facility] [address] [address] [address] Sea Pugh Eosinophils/100 WBC (Bld) 1.4 % Normal 0.9-7.0 [facility] Comment on above: Performed By: #### C BC #### [facility] [address] [address] [address] Sea Pugh Erythrocyte distribution width (RBC) [Ratio] 13.5 % Normal 11.0-15.0 [facility] Comment on above: Performed By: #### C BC #### [facility] [address] [place] [address] Dr. Sea Pugh Hematocrit (Bld) [Volume fraction] 37.5 % Critically low 42.0-54.0 [facility] Comment on above: Performed By: #### C BC #### [facility] [address] [address] [address] Sea Pugh Hemoglobin (Bld) [Mass/Vol] 13.4 g/dL Critically low 14.0-18.0 [facility] Comment on above: Performed By: #### C BC #### [facility] [address] [address] [address] Sea Pugh IG # 0.08 10e3/ul Critically high 0.00-0.03 [facility] Comment on above: Performed By: #### C BC #### [facility] [address] [address] [address] Sea Pugh IG % 0.7 % Critically high 0.0-0.[address] [facility] Comment on above: Performed By: #### C BC #### [facility] [address] [address] [address] Sea Pugh LYMPH # 1.1 103/ul Critically low 1.2-3.8 [facility] Comment on above: Performed By: #### C BC #### [facility] [address] [address] [address] Sea Pugh Lymphocytes/100 WBC (Bld) 8.7 % Critically low 20.5-60.0 [facility] Comment on above: Performed By: #### C BC #### [facility] [address] [address] [address] Sea Pugh MANUAL DIFF REQ NO Normal [facility] Comment on above: Performed By: #### C BC #### [facility] [address] [place] [address] Dr. Sea Pugh MCH (RBC) [Entitic mass] 30.0 pg Normal 25.9-34.0 [facility] Comment on above: Performed By: #### C BC #### [facility] [address] [place] [address] Dr. Sea Pugh MCHC (RBC) [Mass/Vol] 35.7 g/dL Critically high 29.9-35.2 [facility] Comment on above: Performed By: #### C BC #### [facility] [address] [place] [address] Dr. Sea Pugh MCV (RBC) [Entitic vol] 84.1 fL Normal 80.0-94.0 [facility] Comment on above: Performed By: #### C BC #### [facility] [address] [place] [address] Dr. Sae Pugh MONO # 0.8 103/ul Normal 0.3-0.8 [facility] Comment on above: Performed By: #### C BC #### [facility] [address] [place] [address] Dr. Sea Puhg Monocytes/100 WBC (Bld) 6.8 % Normal 1.7-12.0 [facility] Comment on above: Performed By: #### C BC #### [facility] [address] [place] [address] Dr. Sea Pugh NEUT # 10.0 103/ul Critically high 1.4-6.5 [facility] Comment on above: Performed By: #### C BC #### [facility] [address] [address] [address] Sea Pugh Neutrophils/100 WBC (Bld) 82.1 % Critically high 43.0-75.0 [facility] Comment on above: Performed By: #### C BC #### [facility] [address] [address] [address] Sea Pugh Platelet mean volume (Bld) [Entitic vol] 9.2 fL Critically low 9.5-13.5 [facility] Comment on above: Performed By: #### C BC #### [facility] [address] [address] [address] Sea Pugh PLT 203 103/ul Normal 150-450 [facility] Comment on above: Performed By: #### C BC #### [facility] [address] [place] [address] Dr. Sea Pugh RBC 4.46 106/ul Critically low 4.70-6.[address] [facility] Comment on above: Performed By: #### C BC #### [facility] [address] [address] [address] Sea Pugh WBC 12.1 103/ul Critically high 4.0-11.0 [facility] Comment on above: Performed By: #### C BC #### [facility] [address] [address] [address] CSPINE WO CONon [...] REINA GOMEZ Date: 2022-04-19 20:22 Normal [facility] CT STROKE HEAD WOon 04-19-19 23 [...] OBI MIDDLETON Date: 2022-04-19 20:08 Normal [facility] CTA CHEST WO W CONon 023 [...] by: RIC MOON Date: 2022-04-19 21:52 Normal [facility] D-DIMERon 04-19-2022 D-DIMER 2.01 mg/L FEU Critically high <=0.59 [facility] Comment on above: Performed By: #### D DIM #### [facility] [address] [address] [address] Sea Pugh D-DIMER COMMENTS SEE BELOW Normal [facility] Comment on above: Result Comment: Incr [...] hospitalization. Performed By: #### D DIM #### [facility] [address] [address] [address] Sea Pugh PROF CHEM 8 (BAS METB)on Anion gap [Moles/Vol] 19.2 mmol/L Normal [facility] Comment on above: Performed By: #### B SANJEEV ORTIZ ####[facility] [address] [place] [id number]. Sea Pugh Calcium [Mass/Vol] 9.1 mg/dL Normal 8.5-10.1 [facility] Comment on above: Performed By: #### B DOUGIE ORTIZDM ####[facility] [address] [place] [id number]. Sea Pugh Chloride [Moles/Vol] 98 mmol/L Normal 98-107 [facility] Comment on above: Performed By: #### B SANJEEV ORTIZ ####[facility] [address] [place] [address]Dr. Sea Pugh CO2 [Moles/Vol] 21.4 mmol/L Normal 21.0-32.0 [facility] Comment on above: Performed By: #### B DIANA, CMADM ####[facility] [address] [place] [address]Dr. Sea Pugh Creatinine [Mass/Vol] 1.45 mg/dL Critically high 0.70-1.30 [facility] Comment on above: Performed By: #### B DIANA, CMADM ####[facility] [address] [place] [address]Dr. Sea Pugh EGFR-AF DOMINICAN 58 mL/min/1.73m2 Critically low >=60 [facility] Comment on above: Performed By: #### B DIANA CMAMOJGAN ####[facility] [address] [place], [place] [address]Dr. Sea Pugh EGFR-NON AF DOMINICAN 47 mL/min/1.73m2 Critically low >=60 [facility] Comment on above: Performed By: #### B DIANA CMAMOJGAN ####[facility] [address] [place], [place] [address]Dr. Sea Pugh Glucose [Mass/Vol] 221 mg/dL Critically high 74-106 T [facility] Comment on above: Performed By: #### B DIANA, CMAMOJGAN ####[facility] [address] [place], [place] [address]Dr. Sea Pugh Potassium [Moles/Vol] 3.6 mmol/L Normal 3.5-5.1 [facility] Comment on above: Performed By: #### B DIANA, CMADM ####[facility] [address] [place], [place] [address]Dr. Sea Pugh Sodium [Moles/Vol] 135 mmol/L Critically low 136-[address] [facility] Comment on above: Performed By: #### B DIANA, CMADM ####[facility] [address] [place], [place] [address]Dr. Sea Pugh Urea nitrogen [Mass/Vol] 12.0 mg/dL Normal 7.0-18.0 [facility] Comment on above: Performed By: #### B SANJEEV ORTIZ ####[facility] [address] [place], [place] [address]Wz. Sea Pugh Urea nitrogen/Creatinine [Mass ratio] 8.3 mg/mg Normal [facility] Comment on above: Performed By: #### B SANJEEV ORTIZ ####[facility] [address] [place], [place] [address]Dk. Sea Pugh XR CHEST 1 Von 04-19-2022 XR CHEST 1 V EXAMINATION: XR CHES T 1 V HISTORY: Left arm weakness and tingling. 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 COMPARISON: 09/22/2021 portable chest TECHNIQUE: Portable chest FINDINGS: The lung parenchyma is free of consolidation or infiltrate. No pneumothorax or pleural effusion. The cardiac, mediastinal and hilar contours are normal. The visualized osseous structures exhibit no gross abnormality. IMPRESSION: No acute cardiopulmonary abnormality. Electronically authenticated by: REINA GOMEZ Date: 2022-04-19 20:12 Normal [facility] XR MODIFIED BARIUM SWALLOWon 12-20-2021 XR [...] by: REINA GO Date: 2021-12-20 10:49 Normal [facility] CARDIAC SRINIVASAN 3-6on 2 CK [Catalytic activity/Vol] 63 U/L Normal 39-308 [facility] Comment on above: Performed By: #### C MREP ####[facility] [id number] [place], [place] [address]Uh. Sea Pugh CK.MB [Mass/Vol] 1.00 ng/mL Normal <=3.60 [facility] Comment on above: Performed By: #### C MREP ####[facility] [id number] [place], [place] [address]KjDr. Sea Pugh HSTROP 7.1 pg/mL Normal 4.0-76.1 [facility] Comment on above: Result Comment: CUT- OFF POINTS HAVE BEEN ESTABLISHED BASED ON THE FOURTH UNIVERSAL DEFINITIONS OF MYOCARDIAL INFARCTION. THE UPPER REFERENCE LIMIT (URL) OF TROPONIN, DEFINED THE 99TH PERCENTILE OF cTnI DISTRIBUTION IN A REFERENCE POPULATION, HAS BEEN CONFIRMED THE DECISION THRESHOLD FOR [place] DIAGNOSIS. Performed By: #### C MREP ####[facility] [id number] [place] [id number][address] Sea Pugh CARDIAC SRINIVASAN ADMITon 022 CK [Catalytic activity/Vol] 66 U/L Normal 39-308 [facility] Comment on above: Performed By: #### D DIM #### [facility] [address] [place] [address] Dr. Sea Pugh CK.MB [Mass/Vol] 0.93 ng/mL Normal <=3.[address] [facility] Comment on above: Performed By: #### D DIM #### [facility] [address] [address] [address] Sea Pugh HSTROP 8.2 pg/mL Normal 4.0-76.1 [facility] [place] [facility] Comment on above: Result Comment: CUT- OFF POINTS HAVE BEEN ESTABLISHED BASED ON THE FOURTH UNIVERSAL DEFINITIONS OF MYOCARDIAL INFARCTION. THE UPPER REFERENCE LIMIT (URL) OF TROPONIN, DEFINED THE 99TH PERCENTILE OF cTnI DISTRIBUTION IN A REFERENCE POPULATION, HAS BEEN CONFIRMED THE DECISION THRESHOLD FOR TN DIAGNOSIS. Performed By: #### D DIM #### [facility] [address] [address] [address] Sea Pugh RAMONE 62 ng/mL Normal 16-96 [facility] [place] [facility] Comment on above: Performed By: #### D DIM #### [facility] [address] [address] [address] Sea Pugh CBC AUTO DIFFon 12-06-2021 BASO # 0.0 103/ul Normal 0.0-0.1 [facility] Comment on above: Performed By: #### D DIM #### [facility] [address] [address] [address] Sea Pugh Basophils/100 WBC (Bld) 0.3 % Normal 0.2-2.0 [facility] Comment on above: Performed By: #### D DIM #### [facility] [address] [address] [address] Sea Pugh EO # 0.5 103/ul Normal 0.0-0.7 [facility] Comment on above: Performed By: #### D DIM #### [facility] [address] [address] [address] Sea Pugh Eosinophils/100 WBC (Bld) 5.4 % Normal 0.9-7.0 [facility] Comment on above: Performed By: #### D DIM #### [facility] [address] [address] [address] Sea Pugh Erythrocyte distribution width (RBC) [Ratio] 13.7 % Normal 11.0-15.0 [facility] Comment on above: Performed By: #### D DIM #### [facility] [address] [address] [address] Sea Pugh Hematocrit (Bld) [Volume fraction] 34.9 % Critically low 42.0-54.0 [facility] Comment on above: Performed By: #### D DIM #### [facility] [address] [address] [address] Sea Pugh Hemoglobin (Bld) [Mass/Vol] 12.2 g/dL Critically low 14.0-18.0 [facility] Comment on above: Performed By: #### D DIM #### [facility] [address] [address] [address] Sea Pugh IG # 0.07 10e3/ul Critically high 0.00-0.[address] [facility] Comment on above: Performed By: #### D DIM #### [facility] [address] [address] [address] Sea Pugh IG % 0.7 % Critically high 0.0-0.5 [facility] Comment on above: Performed By: #### D DIM #### [facility] [address] [address] [address] Sea Pugh LYMPH # 1.3 103/ul Normal 1.2-3.8 [facility] Comment on above: Performed By: #### D DIM #### [facility] [address] [place] [address] Dr. Sea Pugh Lymphocytes/100 WBC (Bld) 13.5 % Critically low 20.5-60.0 [facility] Comment on above: Performed By: #### D DIM #### [facility] [address] [place] [address] Dr. Sea Pugh MANUAL DIFF REQ NO Normal [facility] Comment on above: Performed By: #### D DIM #### [facility] [address] [place] [address] Dr. Sea Pugh MCH (RBC) [Entitic mass] 30.5 pg Normal 25.9-34.0 [facility] Comment on above: Performed By: #### D DIM #### [facility] [address] [place] [address] Dr. Sea Pugh MCHC (RBC) [Mass/Vol] 35.0 g/dL Normal 29.9-35.2 [facility] Comment on above: Performed By: #### D DIM #### [facility] [address] [place] [address] Dr. Sea Pugh MCV (RBC) [Entitic vol] 87.3 fL Normal 80.0-94.0 [facility] Comment on above: Performed By: #### D DIM #### [facility] [address] [place] [address] Dr. Sea Pugh MONO # 1.3 103/ul Critically high 0.3-0.8 [facility] Comment on above: Performed By: #### D DIM #### [facility] [address] [place] [address] Dr. Sea Pugh Monocytes/100 WBC (Bld) 12.9 % Critically high 1.7-12.0 [facility] Comment on above: Performed By: #### D DIM #### [facility] [address] [address] [address] Sea Pugh NEUT # 6.7 103/ul Critically high 1.4-6.5 [facility] Comment on above: Performed By: #### D DIM #### [facility] [address] [place] [address] Dr. Sea Pugh Neutrophils/100 WBC (Bld) 67.2 % Normal 43.0-75.0 [facility] Comment on above: Performed By: #### D DIM #### [facility] [address] [place] [address] Dr. Sea Pugh Platelet mean volume (Bld) [Entitic vol] 9.7 fL Normal 9.5-13.5 [facility] Comment on above: Performed By: #### D DIM #### [facility] [address] [place] [address] Dr. Sea Pugh PLT 226 103/ul Normal 150-450 [facility] Comment on above: Performed By: #### D DIM #### [facility] [address] [place] [address] Dr. Sea Pugh RBC 4.00 106/ul Critically low 4.70-6.10 [facility] Comment on above: Performed By: #### D DIM #### [facility] [address] [place] [address] Dr. Sea Pugh WBC 10.0 103/ul Normal 4.0-11.0 [facility] Comment on above: Performed By: #### D DIM #### [facility] [address] [place] [address] Dr. Sea Pugh CTA CHEST WO W [...] OSITO CUELLO Date: 2021-12-06 01:29 Normal [facility] D-DIMERon 12-06-2021 D-DIMER 1.11 mg/L FEU Critically high <=0.59 [facility] Comment on above: Performed By: #### D DIM #### [facility] [address] [address] [address] Sea Pugh D-DIMER COMMENTS SEE BELOW Normal [facility] Comment on above: Result Comment: Incr [...] hospitalization. Performed By: #### D DIM #### [facility] [address] [address] [address] Sea Pugh PROF CHEM 8 (BAS METB)on Anion gap [Moles/Vol] 9.5 mmol/L Normal [facility] Comment on above: Performed By: #### H STROPN, CMP, CRP #### [facility] [address] [address] [address] Sea Pugh Calcium [Mass/Vol] 8.6 mg/dL Normal 8.5-10.1 [facility] Comment on above: Performed By: #### H STROPN, CMP, CRP #### [facility] [address] [address] [address] Sea Pugh Chloride [Moles/Vol] 100 mmol/L Normal 98-107 [facility] Comment on above: Performed By: #### H STROPN, CMP, CRP #### [facility] [address] [address] [address] Sea Pugh CO2 [Moles/Vol] 25.8 mmol/L Normal 21.0-32.0 [facility] Comment on above: Performed By: #### H STROPN, CMP, CRP #### [facility] [address] [place] [address] Dr. Sea Pugh Creatinine [Mass/Vol] 1.12 mg/dL Normal 0.70-1.30 [facility] Comment on above: Performed By: #### H STROPN, CMP, CRP #### [facility] [address] [address] [address] Sea Pugh EGFR-AF DOMINICAN >60 Normal >=60 [facility] Comment on above: Performed By: #### H STROPN, CMP, CRP #### [facility] [address] [place] [address] Dr. Sea Pugh EGFR-NON AF DOMINICAN >60 Normal >=60 [facility] Comment on above: Performed By: #### H STROPN, CMP, CRP #### [facility] [address] [address] [address] Sea Pugh Glucose [Mass/Vol] 201 mg/dL Critically high 74-106 [facility] [place] [facility] Comment on above: Performed By: #### H STROPN, CMP, CRP #### [facility] [address] [address] [address] Sea Pugh Potassium [Moles/Vol] 3.3 mmol/L Critically low 3.5-5.1 [facility] Comment on above: Performed By: #### H STROPN, CMP, CRP #### [facility] [address] [address] [address] Sea Pugh Sodium [Moles/Vol] 132 mmol/L Critically low 136-[address] [facility] Comment on above: Performed By: #### H STROPN, CMP, CRP #### [facility] [address] [address] [address] Sea Pugh Urea nitrogen [Mass/Vol] 16.0 mg/dL Normal 7.0-18.0 [facility] Comment on above: Performed By: #### H STROPN, CMP, CRP #### [facility] [address] [address] [address] Sea Pugh Urea nitrogen/Creatinine [Mass ratio] 14.3 mg/mg Normal [facility] Comment on above: Performed By: #### H STROPN, CMP, CRP #### [facility] [address] [address] [address] Sea Pugh Basic Metabolic Panelon 11-21 Anion gap [Moles/Vol] 12 mmol/L 9 - 17 mmol/L [facility] Calcium [Mass/Vol] 8.3 mg/dL Low 8.6 - 10. 4 mg/dL [facility] Chloride [Moles/Vol] 100 mmol/L 98 - 10 7 mmol/L [facility] [employer] CO2 [Moles/Vol] 21 mmol/L 20 - 31 mmol/L [facility] [employer] Creatinine [Mass/Vol] 0.69 mg/dL Low 0.7 - 1.2 mg/dL [facility]ITALChinaNetCenter GFR >60 60 - PI NF mL/min itravel [facility] SUR[facility]ISECarJump [facility] GFR Non- >60 60 - PINF mL/min [facility] GFR/1.73 sq M.predicted MDRD (S/P/Bld) [Vol rate/Area] [facility] [employer] Comment on above: Average GFR for 70 o r more years old: 75 mL/min/1.73sq m Chronic Kidney Disease: <60 mL/min/1.73sq m Kidney failure: <15 mL/min/1.73sq m eGFR calculated using average adult body mass. Additional eGFR calculator available at: http://www.FreshT/multiple_crcl_2012.htm Glucose [Mass/Vol] 138 mg/dL High 70 - 99 mg/dL [facility] Interpretation and review of laboratory results Abnormal [facility] Potassium [Moles/Vol] 4.0 mmol/L 3.7 - 5.3 mmol/L [facility] Sodium [Moles/Vol] 133 mmol/L Low 135 - 144 mmol/L [facility] Urea nitrogen (BldV) [Mass/Vol] 12 mg/dL 8 - 23 mg/dL [facility] Basic Metabolic Profon 12-04 (cont.) Normal [facility] Comment on above: Result Comment: Aver age GFR for 70 or more years old: 75 mL/min/1.73sq m Chronic Kidney Disease: <60 mL/min/1.73sq m Kidney failure: <15 mL/min/1.73sq m eGFR calculated using average adult body mass. Additional eGFR calculator available at: http://www.FreshT/multiple_crcl_2012.htm Performed By: #### DALE KINNEY, CDP #### [facility] [address] [place] [address] Hide House Supervisor: Afshin Mansfield MD Anion gap [Moles/Vol] 12 mmol/L Normal 9-17 [facility] Comment on above: Performed By: #### DALE KINNEY, CDP #### [employer] [address] [place] [id number] [facility] [place] Supervisor: Afshin Mansfield MD Calcium [Mass/Vol] 8.3 mg/dL Low 8.6-10.4 [facility] Comment on above: Performed By: #### DALE KINNEY, CDP #### [facility] [address] [place] [address] [facility] [place] Supervisor: Afshin Mansfield MD Chloride [Moles/Vol] 100 mmol/L Normal 98-107 [facility] Comment on above: Performed By: #### I OCAL, BMP, CDP #### [facility] [address] [place] [address] [employer] [place] Supervisor: Afshin Mansfield MD CO2 [Moles/Vol] 21 mmol/L Normal 20-31 [facility] Comment on above: Performed By: #### I OCAL, BMP, CDP #### [facility] [address] [place] [address] [employer] Supervisor: Afshin Mansfield MD Creatinine [Mass/Vol] 0.69 mg/dL Low 0.70-1.20 [facility] Comment on above: Performed By: #### I OCAL, BMP, CDP #### [facility] [address] [place] [address] [employer] Supervisor: Afshin Mansfield MD GFR, Amer >60 Normal >60 [facility] Comment on above: Performed By: #### I OCAL, BMP, CDP #### [facility] [address] [place] [address] [employer] Supervisor: Afshin Mansfield MD GFR,non Amer >60 Normal >60 [facility] Comment on above: Performed By: #### I OCAL, BMP, CDP #### [facility] [employer] [address] [place] [address] [employer] [place] Supervisor: Afshin Mansfield MD Glucose [Mass/Vol] 138 mg/dL High 70-99 [facility] Comment on above: Performed By: #### I OCAL, BMP, CDP #### [facility] [address] [place] [address] [employer] Supervisor: Afshin Mansfield MD Potassium [Moles/Vol] 4.0 mmol/L Normal 3.7-5.3 [facility] Comment on above: Performed By: #### I OCAL, BMP, CDP #### [facility] [employer] [address] [place] [id number] [employer] [place] Supervisor: Afshin Mansfield MD Sodium [Moles/Vol] 133 mmol/L Low 135-144 [facility] Comment on above: Performed By: #### I DALE REYES, CDP #### [facility] [address] [place], [place] [id number] [employer] [place] Supervisor: Afshin Mansfield MD Urea nitrogen [Mass/Vol] 12 mg/dL Normal 8-23 [facility] Comment on above: Performed By: #### I DALE REYES, CDP #### [facility] [address] [place], [place] [phone] [facility] [place] Supervisor: Afshin Mansfield MD CBC with Auto Differentialon 12-04-2021 Absolute Eos # 0.64 High [facility] Absolute Immature Granulocyte 0.06 [facility] Absolute Lymph # 1.09 Low [facility] Absolute Sunflower # 1.29 High [facility] Basophils (Bld) [#/Vol] 0.04 10*3/uL [facility] Basophils/100 WBC (Bld) 0 % 0 - 2 % [facility] Eosinophils/100 WBC (Bld) 6 % High 1 - 4 % [facility] Hematocrit (Bld) [Volume fraction] 36.1 % Low 40.7 - 50.3 % [facility] Hemoglobin (Bld) [Mass/Vol] 12.6 g/dL Low 13 - 17 g/dL [facility] Immature granulocytes/100 WBC (Bld) 1 % High 0 [facility] Interpretation and review of laboratory results Abnormal [facility] Lymphocytes/100 WBC (Bld) 9 % Low 24 - 43 % [facility] MCH (RBC) [Entitic mass] 30.1 pg 25.2 - 33.5 pg [facility] MCHC (RBC) [Mass/Vol] 34.9 g/dL High 28.4 - 34.8 g/dL [facility] MCV (RBC) [Entitic vol] 86.2 fL 82.6 - 102.9 fL [facility] Monocytes/100 WBC (Bld) 11 % 3 - 12 % [facility] NRBC Automated 0.0 0.0 per 100 WBC [facility] Platelet distribution width (Bld) [Ratio] 13.6 % 11.8 - 14.4 % [facility] Platelet mean volume (Bld) [Entitic vol] 9.8 fL 8.1 - 13.5 fL [facility] Platelets (Bld) [#/Vol] 212 10*3/uL [facility] RBC (Bld) [#/Vol] 4.19 10*6/uL Low 4.21 - 5.7 7 m/uL [facility] Segmented neutrophils/100 WBC (Bld) 73 % High 36 - 65 % [facility] Segs Absolute 8.59 High [facility] WBC (Bld) [#/Vol] 11.7 10*3/uL High [facility] CBC with Diffon 12-04-2021 Abs. Basophil 0.04 k/uL Normal 0.00-0.20 [facility] Comment on above: Performed By: #### DALE KINNEY, CDP #### [facility] [employer] [address] [place] [address] Hide House Supervisor: Afshin Mansfield MD Abs.Imm.Granulocyte 0.06 k/uL Normal 0.00-0.30 [facility] Comment on above: Performed By: #### DALE KINNEY, CDP #### [employer] [address] [place] [address] Hide House Supervisor: Afshin Mansfield MD Abs.Neutrophil (Seg) 8.59 k/uL High 1.50-8.10 [facility] Comment on above: Performed By: #### DALE KINNEY, CDP #### [facility] [address] [place], [place] [phone] [facility] [place] Supervisor: Afshin Mansfield MD Basophils/100 WBC (Bld) 0 % Normal 0-2 [facility] Comment on above: Performed By: #### I OCDALE BARBER, CDP #### [facility] [employer] [address] [place] [address] [facility] Supervisor: Afshin Mansfield MD Eosinophils (Bld) [#/Vol] 0.64 10*3/uL High 0.00-0.44 [facility] Comment on above: Performed By: #### I OCSUNIL BMP, CDP #### [facility] [employer] [address] [place] [address] [facility] [place] Supervisor: Afshin Mansfiled MD Eosinophils/100 WBC (Bld) 6 % High 1-4 [facility] Comment on above: Performed By: #### I DALE REYES, CDP #### [facility] [employer] [address] [place] [address] [facility] Supervisor: Afshin Mansfield MD Erythrocyte distribution width (RBC) [Ratio] 13.6 % Normal 11.8-14.4 [facility] Comment on above: Performed By: #### I OCDALE BARBER, CDP #### [facility] [employer] [address] [place] [address] [facility] Supervisor: Afshin Mansfield MD Hematocrit (Bld) [Volume fraction] 36.1 % Low 40.7-50.3 [facility] Comment on above: Performed By: #### I DALE REYES, CDP #### [facility] [employer] [address] [place] [address] [facility] Supervisor: Afshin Mansfield MD Hemoglobin (Bld) [Mass/Vol] 12.6 g/dL Low 13.0-17.0 [facility] Comment on above: Performed By: #### I OCDALE BARBER, CDP #### [facility] [employer] [address] [place] [address] [employer] [facility] Supervisor: Afshin Mansfield MD Immature granulocytes/100 WBC (Bld) 1 % High 0 [facility] Comment on above: Performed By: #### I OCAL, BMP, CDP #### [facility] [employer] [address] [place] [address] [facility] Supervisor: Afshin Mansfield MD Lymphocytes (Bld) [#/Vol] 1.09 10*3/uL Low 1.10-3.70 [facility] Comment on above: Performed By: #### I OCSUNIL, BMP, CDP #### [facility] [employer] [address] [place] [address] [facility] Supervisor: Afshin Mansfield MD Lymphocytes/100 WBC (Bld) 9 % Low 24-43 [facility] Comment on above: Performed By: #### I OCDALE BARBER, CDP #### [facility] [employer] [address] [place] [address] [employer] [facility] Supervisor: Afshin Mansfield MD MCH (RBC) [Entitic mass] 30.1 pg Normal 25.2-33.5 [facility] Comment on above: Performed By: #### I OCDALE BARBER, CDP #### [facility] [employer] [address] [place] [address] [facility] [employer] Supervisor: Afshin Mansfield MD MCHC (RBC) [Mass/Vol] 34.9 g/dL High 28.4-34.8 [facility] Comment on above: Performed By: #### I OCDALE BARBER, CDP #### [facility] [employer] [address] [place] [address] [employer] Supervisor: Afshin Mansfield MD MCV (RBC) [Entitic vol] 86.2 fL Normal 82.6-102.9 [facility] Comment on above: Performed By: #### I OCDALE BARBER, CDP #### [facility] [employer] [address] [place] [address] [employer] Supervisor: Afshin Mansfield MD Monocytes (Bld) [#/Vol] 1.29 10*3/uL High 0.10-1.20 [facility] Comment on above: Performed By: #### I OCAL, BMP, CDP #### [facility] [address] [place] [address] [facility] [employer] Supervisor: Afshin Mansfield MD Monocytes/100 WBC (Bld) 11 % Normal 3-12 [facility] Comment on above: Performed By: #### I OCAL, BMP, CDP #### [facility] [employer] [address] [place] [address] [facility] Supervisor: Afshin Mansfield MD Neutrophil (Seg) 73 % High 36-65 [facility] Comment on above: Performed By: #### I OCAL, BMP, CDP #### [facility] [employer] [address] [place] [address] [facility] Supervisor: Afshin Mansfield MD NRBC Automated 0.0 per 100 WBC Normal 0.0 [facility] Comment on above: Performed By: #### I OCAL, BMP, CDP #### [facility] [address] [place] [address] [facility] [employer] Supervisor: Afshin Mansfield MD Platelet mean volume (Bld) [Entitic vol] 9.8 fL Normal 8.1-13.5 [facility] Comment on above: Performed By: #### I OCAL, BMP, CDP #### [facility] [employer] [address] [place] [address] [facility] Supervisor: Afshin Mansfield MD Platelets (Bld) [#/Vol] 212 10*3/uL Normal 138-453 [facility] Comment on above: Performed By: #### I OCAL, BMP, CDP #### [facility] [employer] [address] [place] [address] [employer] [facility] Supervisor: Afshin Mansfield MD RBC (Bld) [#/Vol] 4.19 10*6/uL Low 4.21-5.77 [facility] Comment on above: Performed By: #### I OCAL, BMP, CDP #### [facility] [address] [place] [address], [place] [id number] [employer] Supervisor: Afshin Mansfield MD WBC (Bld) [#/Vol] 11.7 10*3/uL High 3.5-11.3 [facility] Comment on above: Performed By: #### I OCAL, BMP, CDP #### [facility] [address] [place], [place] [phone] [facility] Supervisor: Afshin Mansfield MD POC Glucose Fingerstickon Glucose [Mass/Vol] 110 mg/dL 75 - 110 mg/dL [facility] [employer] Basic Metabolic Panelon 11-21 Anion gap [Moles/Vol] 14 mmol/L 9 - 17 mmol/L [facility] [employer] Calcium [Mass/Vol] 8.0 mg/dL Low 8.6 - 10. 4 mg/dL [facility] [employer] Chloride [Moles/Vol] 101 mmol/L 98 - 10 7 mmol/L [facility] [employer] CO2 [Moles/Vol] 18 mmol/L Low 20 - 31 mmol/L [facility] [employer] Creatinine [Mass/Vol] 0.67 mg/dL Low 0.7 - 1.2 mg/dL [facility] [employer] GFR >60 60 - PI NF mL/min [facility] [employer] GFR Non- >60 60 - PINF mL/min [facility] [employer] GFR/1.73 sq M.predicted MDRD (S/P/Bld) [Vol rate/Area] [facility] Comment on above: Average GFR for 70 o r more years old: 75 mL/min/1.73sq m Chronic Kidney Disease: <60 mL/min/1.73sq m Kidney failure: <15 mL/min/1.73sq m eGFR calculated using average adult body mass. Additional eGFR calculator available at: http://www.FreshT/multiple_crcl_2012.htm Glucose [Mass/Vol] 156 mg/dL High 70 - 99 mg/dL [facility] [employer] Interpretation and review of laboratory results Abnormal [facility] [employer] Potassium [Moles/Vol] 3.9 mmol/L 3.7 - 5.3 mmol/L [facility] Sodium [Moles/Vol] 133 mmol/L Low 135 - 144 mmol/L [facility] Urea nitrogen (BldV) [Mass/Vol] 12 mg/dL 8 - 23 mg/dL [facility] Basic Metabolic Profon 12-03 (cont.) Normal [facility] Comment on above: Result Comment: Aver age GFR for 70 or more years old: 75 mL/min/1.73sq m Chronic Kidney Disease: <60 mL/min/1.73sq m Kidney failure: <15 mL/min/1.73sq m eGFR calculated using average adult body mass. Additional eGFR calculator available at: http://www.FreshT/multiple_crcl_2012.htm Performed By: #### DALE KINNEY, CDP #### [facility] [address] [place] [address] [phone] [employer] Supervisor: Afshin Mansfield MD Anion gap [Moles/Vol] 14 mmol/L Normal 9-17 [facility] Comment on above: Performed By: #### DALE KINNEY, CDP #### [facility] [address] [place] [address] [phone] [employer] Supervisor: Afshin Mansfield MD Calcium [Mass/Vol] 8.0 mg/dL Low 8.6-10.4 [facility] Comment on above: Performed By: #### DALE KINNEY, CDP #### [facility] [address] [place] [address] [phone] [employer] Supervisor: Afshin Mansfield MD Chloride [Moles/Vol] 101 mmol/L Normal 98-107 [facility] Comment on above: Performed By: #### DALE KINNEY, CDP #### [facility] [address] [place] [address] [phone] Hide [employer] Supervisor: Afshin Mansfield MD CO2 [Moles/Vol] 18 mmol/L Low 20-31 [facility] Comment on above: Performed By: #### I OCAL, BMP, CDP #### [facility] [address] [place] [address] 57738 [employer] Supervisor: Afshin Mansfield MD Creatinine [Mass/Vol] 0.67 mg/dL Low 0.70-1.20 [facility] Comment on above: Performed By: #### I OCAL, BMP, CDP #### [facility] [address] [place] [address] 47262 [employer] Supervisor: Afshin Mansfield MD GFR, Amer >60 Normal >60 [facility] Comment on above: Performed By: #### I OCAL, BMP, CDP #### [facility] [address] [place] [address] 65404 Hide [employer] Supervisor: Afshin Mansfield MD GFR,non Amer >60 Normal >60 [facility] Comment on above: Performed By: #### I OCAL, BMP, CDP #### [facility] [employer] [address] [place] [address] 46463 Hide [facility] Supervisor: Afshin Mansfield MD Glucose [Mass/Vol] 156 mg/dL High 70-99 [facility] Comment on above: Performed By: #### I OCAL, BMP, CDP #### [facility] [employer] [address] [place] [address] 82678 Hide [employer] Supervisor: Afshin Mansfield MD Potassium [Moles/Vol] 3.9 mmol/L Normal 3.7-5.3 [facility] Comment on above: Performed By: #### I OCAL, BMP, CDP #### [facility] [employer] [address] [place] [address] 6[address]21 Hide [employer] Supervisor: Afshin Mansfield MD Sodium [Moles/Vol] 133 mmol/L Low 135-144 [facility] Comment on above: Performed By: #### I OCAL, BMP, CDP #### [facility] [employer] [address] [place] [address] [phone] [facility] Supervisor: Afshin Mansfield MD Urea nitrogen [Mass/Vol] 12 mg/dL Normal 8-23 [facility] Comment on above: Performed By: #### I OCSUNIL, DALE, CDP #### [facility] [address] [place], [place] [phone] Hide [facility] Supervisor: Afshin Mansfield MD CBC with Auto Differentialon 12-03-2021 Absolute Eos # 0.54 High [facility] Absolute Immature Granulocyte 0.07 [facility] Absolute Lymph # 1.07 Low [facility] Absolute Sunflower # 1.20 [facility] Basophils (Bld) [#/Vol] 0.03 10*3/uL [facility] Basophils/100 WBC (Bld) 0 % 0 - 2 % [facility] Eosinophils/100 WBC (Bld) 5 % High 1 - 4 % [facility] Hematocrit (Bld) [Volume fraction] 37.0 % Low 40.7 - 50.3 % [facility] Hemoglobin (Bld) [Mass/Vol] 13.1 g/dL 13 - 17 g/dL [facility] Immature granulocytes/100 WBC (Bld) 1 % High 0 [facility] Interpretation and review of laboratory results Abnormal [facility] Lymphocytes/100 WBC (Bld) 10 % Low 24 - 43 % [facility] MCH (RBC) [Entitic mass] 30.8 pg 25.2 - 33.5 pg [facility] MCHC (RBC) [Mass/Vol] 35.4 g/dL High 28.4 - 34.8 g/dL [facility] MCV (RBC) [Entitic vol] 87.1 fL 82.6 - 102.9 fL [facility] Monocytes/100 WBC (Bld) 11 % 3 - 12 % [facility] NRBC Automated 0.0 0.0 per 100 WBC [facility] Platelet distribution width (Bld) [Ratio] 13.7 % 11.8 - 14.4 % [facility] Platelet mean volume (Bld) [Entitic vol] 10.6 fL 8.1 - 13.5 fL [facility] Platelets (Bld) [#/Vol] 223 10*3/uL [facility] RBC (Bld) [#/Vol] 4.25 10*6/uL 4.21 - 5.7 7 m/uL [facility] Segmented neutrophils/100 WBC (Bld) 73 % High 36 - 65 % [facility] Segs Absolute 8.06 [facility] WBC (Bld) [#/Vol] 11.0 10*3/uL [facility] CBC with Diffon 12-03-2021 Abs. Basophil 0.03 k/uL Normal 0.00-0.20 [facility] Comment on above: Performed By: #### DALE KINNEY, CDP #### [facility] [employer] [address] [place] [address] Hide House Supervisor: Afshin Mansfield MD Abs.Imm.Granulocyte 0.07 k/uL Normal 0.00-0.30 [facility] Comment on above: Performed By: #### DALE KINNEY, CDP #### [facility] [address] [place] [address] Hide House Supervisor: Afshin Mansfield MD Abs.Neutrophil (Seg) 8.06 k/uL Normal 1.50-8.10 [facility] Comment on above: Performed By: #### DALE KINNEY, CDP #### [facility] [address] [place] [address] Hide House Supervisor: Afshin Mansfield MD Basophils/100 WBC (Bld) 0 % Normal 0-2 [facility] Comment on above: Performed By: #### I DALE REYES, CDP #### [facility] [address] [place] [address] Hide House Supervisor: Afshin Mansfield MD Eosinophils (Bld) [#/Vol] 0.54 10*3/uL High 0.00-0.44 [facility] Comment on above: Performed By: #### I OCDALE BARBER, CDP #### [facility] [employer] [address] [place] [address] 13072 [facility] Supervisor: Afshin Mansfield MD Eosinophils/100 WBC (Bld) 5 % High 1-4 [facility] Comment on above: Performed By: #### I OCSUNIL BMP, CDP #### [facility] [employer] [address] [place] [address] 43271 [facility] [employer] Supervisor: Afshin Mansfield MD Erythrocyte distribution width (RBC) [Ratio] 13.7 % Normal 11.8-14.4 [facility] Comment on above: Performed By: #### DALE KINNEY, CDP #### [facility] [employer] [address] [place] [address] 24422 [facility] [employer] Supervisor: Afshin Mansfield MD Hematocrit (Bld) [Volume fraction] 37.0 % Low 40.7-50.3 [facility] Comment on above: Performed By: #### I DALE REYES, CDP #### [facility] [employer] [address] [place] [address] 11899 [facility] Supervisor: Afshin Mansfield MD Hemoglobin (Bld) [Mass/Vol] 13.1 g/dL Normal 13.0-17.0 [facility] Comment on above: Performed By: #### I DALE REYES, CDP #### [facility] [employer] [address] [place] [address] 39946 [facility] Supervisor: Afshin Mansfield MD Immature granulocytes/100 WBC (Bld) 1 % High 0 [facility] Comment on above: Performed By: #### I OCDALE BARBER, CDP #### [facility] [employer] [address] [place] [address] 03718 [facility] [employer] Supervisor: Afshin Mansfield MD Lymphocytes (Bld) [#/Vol] 1.07 10*3/uL Low 1.10-3.70 [facility] Comment on above: Performed By: #### I OCAL, BMP, CDP #### [facility] [employer] [address] [place] [address] 95195 [facility] [employer] Supervisor: Afshin Mansfield MD Lymphocytes/100 WBC (Bld) 10 % Low 24-43 [facility] Comment on above: Performed By: #### I OCAL, BMP, CDP #### [facility] [employer] [address] [place] [address] 11078 Hide [employer] Supervisor: Afshin Mansfield MD MCH (RBC) [Entitic mass] 30.8 pg Normal 25.2-33.5 [facility] Comment on above: Performed By: #### I OCSUNIL, BMP, CDP #### [facility] [employer] [address] [place] [address] 76912 [facility] [employer] Supervisor: Afshin Mansfield MD MCHC (RBC) [Mass/Vol] 35.4 g/dL High 28.4-34.8 [facility] Comment on above: Performed By: #### I OCSUNIL, BMP, CDP #### [facility] [employer] [address] [place] [address] 01141 [employer] [facility] Supervisor: Afshin Mansfield MD MCV (RBC) [Entitic vol] 87.1 fL Normal 82.6-102.9 [facility] Comment on above: Performed By: #### I OCSUNIL, BMP, CDP #### [place] [address] [employer] Supervisor: Afshin Mansfield MD Monocytes (Bld) [#/Vol] 1.20 10*3/uL Normal 0.10-1.20 [facility] Comment on above: Performed By: #### I OCSUNIL, BMP, CDP #### [facility] [employer] [address] [place] [address] 83497 [employer] [facility] Supervisor: Afshin Mansfield MD Monocytes/100 WBC (Bld) 11 % Normal 3-12 [facility] Comment on above: Performed By: #### I OCSUNIL, BMP, CDP #### [facility] [address] [place] [address] [phone] [employer] Supervisor: Afshin Mansfield MD Neutrophil (Seg) 73 % High 36-65 [facility] Comment on above: Performed By: #### I OCAL, BMP, CDP #### [facility] [address] [place] [address] 82241 Hide [facility] Supervisor: Afshin Mansfield MD NRBC Automated 0.0 per 100 WBC Normal 0.0 [facility] Comment on above: Performed By: #### I OCAL, BMP, CDP #### [facility] [address] [place] [address] 19441 [facility] Supervisor: Afshin Mansfield MD Platelet mean volume (Bld) [Entitic vol] 10.6 fL Normal 8.1-13.5 [facility] Comment on above: Performed By: #### I OCAL, BMP, CDP #### [facility] [employer] [address] [place] [address] 05461 Hide [employer] Supervisor: Afshin Mansfield MD Platelets (Bld) [#/Vol] 223 10*3/uL Normal 138-453 [facility] Comment on above: Performed By: #### I OCAL, BMP, CDP #### [facility] [address] [place] [address] 35286 [facility] [employer] Supervisor: Afshin Mansfield MD RBC (Bld) [#/Vol] 4.25 10*6/uL Normal 4.21-5.77 [facility] Comment on above: Performed By: #### I OCAL, BMP, CDP #### [facility] [employer] [address] [place] [address] 44482 [facility] Supervisor: Afshin Mansfield MD WBC (Bld) [#/Vol] 11.0 10*3/uL Normal 3.5-11.3 [facility] Comment on above: Performed By: #### I OCAL, BMP, CDP #### [facility] [address] [place] [address] Hide House Supervisor: Afshin Mansfield MD Cult,Bloodon 12-03-2021 Cult,Blood Specimen Description .BLOOD Special Requests L HAND 20ML Culture NO GROWTH 5 DAYS Report Status FINAL 12/03/2021 Normal [facility] Comment on above: Performed By: #### B C #### [facility] [address] [place] [address] Hide House Supervisor: Afshin Mansfield MD Cult,Blood Specimen Description .BLOOD Special Requests r hand 20ml Culture NO GROWTH 5 DAYS Report Status FINAL 12/03/2021 Normal [facility] Comment on above: Performed By: #### I OCAL, BMP, CDP #### [facility] [address] [place], [place] [phone] [facility] Supervisor: Afshin Mansfield MD Culture, Blood 1on 2 Bacteria identified Cx Nom (Unsp spec) NO GROWTH 5 DAYS [facility] [employer] Special Requests L HAND 20ML [facility] Specimen Description .BLOOD [facility] [employer] Bacteria identified Cx Nom (Unsp spec) NO GROWTH 5 DAYS [facility] [employer] Special Requests r hand 20ml [facility] [employer] [facility] [employer] Specimen Description .BLOOD [facility] [employer] EKG 12 LeadOrdered By: Unkno wn Result on 12-03-2021 Atrial Rate 90 BPM [facility]ITALChinaNetCenter Q-T Interval 422 ms [facility] [employer] QRS Duration 88 ms [facility] [employer] QTc Calculation (Bazett) 516 ms [facility]ITALChinaNetCenter R [place] 23 degrees itravel [facility]ISE[facility]NetCenter T [place] 48 degrees itravel [facility] Ventricular Rate 90 BPM [facility]ITAL[facility] [employer] EKG 12 Leadon 12-03-2021 Atrial flutter with [...] ST no longer depressed in Anterior leads [facility] Work Phone: Osmolality, Urineon 12-04-19 22 Osmolality - Urine 670 mOsm/kg Normal 80-1300 [facility] Comment on above: Performed By: #### I DALE REYES, CDP #### [facility] [address] [place] [address] Hide House Supervisor: Afshin Mansfield MD Osmolality, Ur 670 [facility] POC Glucose Fingerstickon Glucose [Mass/Vol] 151 mg/dL High 75 - 110 mg/dL [facility] Interpretation and review of laboratory results Abnormal [facility] Glucose [Mass/Vol] 172 mg/dL High 75 - 110 mg/dL [facility] Interpretation and review of laboratory results Abnormal [facility] Glucose [Mass/Vol] 160 mg/dL High 75 - 110 mg/dL [facility] Interpretation and review of laboratory results Abnormal [facility] SODIUM, URINE, RANDOMon 11-21 Sodium (U) [Moles/Vol] 154 mmol/L [facility] Comment on above: No normal range esta blished. [facility] Sodium, Random Uron 12-04-19 Sodium (U) [Moles/Vol] 154 mmol/L Normal [facility] Comment on above: Result Comment: No n ormal range established. Performed By: #### I DALE REYES, CDP #### [facility] [address] [place] [address] Hide House Supervisor: Afshin Mansfield MD EKG 12 LeadOrdered By: Huan Mayo on 12-02-2021 Atrial Rate 125 BPM [employer] Work Phone: Q-T Interval 322 ms [employer] Work Phone: QRS Duration 84 ms [employer] Work Phone: QTc Calculation (Bazett) 470 ms [employer] Work Phone: R [place] 14 degrees [employer] Work Phone: T [place] -59 degrees [employer] Work Phone: Ventricular Rate 128 BPM [facility] [employer] Work Phone: [employer] Phone: EKG 12 Leadon 12-02-2021 Atrial fibrillation with rapid ventricular response with premature ventricular or aberrantly conducted complexes Low voltage QRS 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) ACUTE TN / STEMI Consider right ventricular involvement in acute inferior infarct Abnormal ECG When compared with ECG of 02-DEC-2021 03:02, T wave inversion no longer evident in Inferior leads [facility] Huan Galo MD - 12/02/2021 Atrial fibrillation with rapid ventricular response with premature ventricular or aberrantly conducted complexes Low voltage QRS 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) ACUTE TN / STEMI Consider right ventricular involvement in acute inferior infarct Abnormal ECG When compared with ECG of 02-DEC-2021 03:02, T wave inversion no longer evident in Inferior leads [employer] Phone: Magnesiumon 12-02-2021 Magnesium [Mass/Vol] 2.0 mg/dL Normal 1.6-2.6 [facility] Comment on above: Performed By: #### I OCAL, BMP, CDP #### [facility] [address] [place], [place] [phone] [facility] House Supervisor: Afshin Mansfield MD Magnesium [Mass/Vol] 2.0 mg/dL 1.6 - 2 .6 mg/dL [facility] No Panel Informationon 12-02 [facility] POC Glucose Fingerstickon Glucose [Mass/Vol] 164 mg/dL High 75 - 110 mg/dL [facility] Interpretation and review of laboratory results Abnormal [facility] Glucose [Mass/Vol] 220 mg/dL High 75 - 110 mg/dL [facility] Interpretation and review of laboratory results Abnormal [facility] Glucose [Mass/Vol] 197 mg/dL High 75 - 110 mg/dL [facility] Interpretation and review of laboratory results Abnormal [facility] Glucose [Mass/Vol] 188 mg/dL High 75 - 110 mg/dL [facility] Interpretation and review of laboratory results Abnormal [facility] Phosphoruson 12-02-2021 Phosphate [Mass/Vol] 2.8 mg/dL 2.5 - 4 .5 mg/dL [facility] Phosphorus, Inorg.on 022 Phosphorus, Inorg. 2.8 mg/dL Normal 2.5-4.5 [facility] Comment on above: Performed By: #### I DALE REYES, CDP #### [facility] [address] [place], [place] [phone] Hide House Supervisor: Afshin Mansfield MD Troponinon 12-02-2021 Troponin, High Sens 15 ng/L Normal 0-22 [facility] Comment on above: Result Comment: High Sensitivity Troponin values cannot be compared with other Troponin methodologies. Patients with high levels of Biotin oral intake (i.e >5mg/day) may have falsely decreased Troponin levels. Samples collected within 8 hours of biotin intake may require additional information for diagnosis. Performed By: #### I DALE REYES, CDP #### [facility] [address] [place] [address] Hide House Supervisor: Afshin Mansfield MD Troponin, High Sensitivity 15 ng/L 0 - 22 ng/L [facility] Comment on above: High Sensitivity Troponin values cannot be compared with other Troponin methodologies. Patients with high levels of Biotin oral intake (i.e >5mg/day) may have falsely decreased Troponin levels. Samples collected within 8 hours of biotin intake may require additional information for diagnosis. [facility] Troponin, High Sens 15 ng/L Normal 0-22 [facility] Comment on above: Result Comment: High Sensitivity Troponin values cannot be compared with other Troponin methodologies. Patients with high levels of Biotin oral intake (i.e >5mg/day) may have falsely decreased Troponin levels. Samples collected within 8 hours of biotin intake may require additional information for diagnosis. Performed By: #### I AMY, BMP, CDP #### [facility] [address] [place] [id number] Hide House Supervisor: Afshin Mansfield MD Troponin, High Sensitivity 15 ng/L 0 - 22 ng/L [facility] [employer] Comment on above: High Sensitivity Troponin values cannot be compared with other Troponin methodologies. Patients with high levels of Biotin oral intake (i.e >5mg/day) may have falsely decreased Troponin levels. Samples collected within 8 hours of biotin intake may require additional information for diagnosis. [facility] [employer] Metabolic Panelon 11-21 Anion gap [Moles/Vol] 11 mmol/L 9 - 17 mmol/L [facility] Calcium [Mass/Vol] 8.1 mg/dL Low 8.6 - 10. 4 mg/dL [facility] Chloride [Moles/Vol] 102 mmol/L 98 - 10 7 mmol/L [facility] CO2 [Moles/Vol] 19 mmol/L Low 20 - 31 mmol/L [facility] Creatinine [Mass/Vol] 0.76 mg/dL 0.7 - 1.2 mg/dL [facility] GFR >60 60 - PI NF mL/min [facility] GFR Non- >60 60 - PINF mL/min [facility] GFR/1.73 sq M.predicted MDRD (S/P/Bld) [Vol rate/Area] [facility] Comment on above: Average GFR for 70 o r more years old: 75 mL/min/1.73sq m Chronic Kidney Disease: <60 mL/min/1.73sq m Kidney failure: <15 mL/min/1.73sq m eGFR calculated using average adult body mass. Additional eGFR calculator available at: http://www.FreshT/multiple_crcl_2012.htm Glucose [Mass/Vol] 176 mg/dL High 70 - 99 mg/dL [facility] Interpretation and review of laboratory results Abnormal [facility] Potassium [Moles/Vol] 4.2 mmol/L 3.7 - 5.3 mmol/L [facility] Sodium [Moles/Vol] 132 mmol/L Low 135 - 144 mmol/L [facility] Urea nitrogen (BldV) [Mass/Vol] 16 mg/dL 8 - 23 mg/dL [facility] Basic Metabolic Profon 12-01 (cont.) Normal [facility] Comment on above: Result Comment: Aver age GFR for 70 or more years old: 75 mL/min/1.73sq m Chronic Kidney Disease: <60 mL/min/1.73sq m Kidney failure: <15 mL/min/1.73sq m eGFR calculated using average adult body mass. Additional eGFR calculator available at: http://www.FreshT/[employer]_crcl_2012.htm Performed By: #### C MARLYS, BMP #### [facility] [address] [place], [place] [phone] [employer] Supervisor: Afshin Mansfield MD Anion gap [Moles/Vol] 11 mmol/L Normal 9-17 [facility] Comment on above: Performed By: #### C MARLYS, BMP #### [facility] [address] [place], [place] [phone] [facility] House Supervisor: Afshin Mansfield MD Calcium [Mass/Vol] 8.1 mg/dL Low 8.6-10.4 [facility] Comment on above: Performed By: #### C MARLYS, BMP #### [address] [address] [employer] Supervisor: Afshin Mansfield MD Chloride [Moles/Vol] 102 mmol/L Normal 98-107 [facility] Comment on above: Performed By: #### C DP, BMP #### [address] [address] [employer] Supervisor: Afshin Mansfield MD CO2 [Moles/Vol] 19 mmol/L Low 20-31 [facility] Comment on above: Performed By: #### C DP, BMP #### [address] [address] [employer] Supervisor: Afshin Mansfield MD Creatinine [Mass/Vol] 0.76 mg/dL Normal 0.70-1.20 [facility] Comment on above: Performed By: #### C DP, BMP #### [address] [address] [employer] Supervisor: Afshin Mansfield MD GFR, Amer >60 Normal >60 [facility] Comment on above: Performed By: #### C DP, BMP #### [address] [address] [employer] Supervisor: Afshin Mansfield MD GFR,non Amer >60 Normal >60 [facility] Comment on above: Performed By: #### C DP, BMP #### [address] [address] [employer] Supervisor: Afshin Mansfield MD Glucose [Mass/Vol] 176 mg/dL High 70-99 [facility] Comment on above: Performed By: #### C DP, BMP #### [address] [address] [facility] [employer] Supervisor: Afshin Mansfield MD Potassium [Moles/Vol] 4.2 mmol/L Normal 3.7-5.3 [facility] Comment on above: Performed By: #### C DP, BMP #### [facility] [address] [place], [place] [phone] Hide House Supervisor: Afshin Mansfield MD Sodium [Moles/Vol] 132 mmol/L Low 135-144 [facility] Comment on above: Performed By: #### C DP, BMP #### [facility] [address] [place], [place] [phone] [facility] House Supervisor: Afshin Mansfield MD Urea nitrogen [Mass/Vol] 16 mg/dL Normal 8-23 [facility] Comment on above: Performed By: #### C DP, BMP #### [facility] [address] [place], [place] [id number] [facility] Supervisor: Afshin Mansfield MD CBC with Auto Differentialon 12-01-2021 Absolute Eos # 0.00 [facility] Absolute Immature Granulocyte 0.00 [facility] Absolute Lymph # 1.35 [facility] Absolute Sunflower # 1.80 High [facility] Basophils (Bld) [#/Vol] 0.00 10*3/uL [facility] Basophils/100 WBC (Bld) 0 % 0 - 2 % [facility] Eosinophils/100 WBC (Bld) 0 % Low 1 - 4 % [facility] Hematocrit (Bld) [Volume fraction] 45.2 % 40.7 - 50.3 % [facility] Hemoglobin (Bld) [Mass/Vol] 15.6 g/dL 13 - 17 g/dL [facility] Immature granulocytes/100 WBC (Bld) 0 % 0 [facility] Interpretation and review of laboratory results Abnormal [facility] Lymphocytes/100 WBC (Bld) 9 % Low 24 - 44 % [facility] MCH (RBC) [Entitic mass] 30.5 pg 25.2 - 33.5 pg [facility] MCHC (RBC) [Mass/Vol] 34.5 g/dL 28.4 - 34.8 g/dL [facility] MCV (RBC) [Entitic vol] 88.5 fL 82.6 - 102.9 fL [facility] Monocytes/100 WBC (Bld) 12 % High 1 - 7 % [facility] Morphology Callum (Bld) [Interp] Normal [facility] NRBC Automated 0.0 0.0 per 100 WBC [facility] Platelet distribution width (Bld) [Ratio] 13.8 % 11.8 - 14.4 % [facility] Platelet mean volume (Bld) [Entitic vol] 9.6 fL 8.1 - 13.5 fL [facility] Platelets (Bld) [#/Vol] 235 10*3/uL [facility] RBC (Bld) [#/Vol] 5.11 10*6/uL 4.21 - 5.7 7 m/uL [facility] Segmented neutrophils/100 WBC (Bld) 79 % High 36 - 66 % [facility] Segs Absolute 11.85 High [facility] WBC (Bld) [#/Vol] 15.0 10*3/uL High [facility] CBC with Diffon 12-01-2021 Abs. Basophil 0.00 k/uL Normal 0.0-0.2 [facility] Comment on above: Performed By: #### C DP, BMP #### [facility] [address] [place] [address] [facility] Supervisor: Afshin Mansfield MD Abs.Imm.Granulocyte 0.00 k/uL Normal 0.00-0.30 [facility] Comment on above: Performed By: #### C DP, BMP #### [facility] [address] [place] [address] [facility] Supervisor: Afshin Mansfield MD Abs.Neutrophil (Seg) 11.85 k/uL High 1.8-7.7 [facility] Comment on above: Performed By: #### C DP, BMP #### [facility] [address] [place] [address] [facility] Supervisor: Afshin Mansfield MD Basophils/100 WBC (Bld) 0 % Normal 0-2 [facility] Comment on above: Performed By: #### C DP, BMP #### [address] [address] [facility] Supervisor: Afshin Mansfield MD Eosinophils (Bld) [#/Vol] 0.00 10*3/uL Normal 0.0-0.4 [facility] Comment on above: Performed By: #### C DP, BMP #### [address] [address] [facility] Supervisor: Afshin Mansfield MD Eosinophils/100 WBC (Bld) 0 % Low 1-4 [facility] Comment on above: Performed By: #### C DP, BMP #### [address] [address] [facility] Supervisor: Afshin Mansfield MD Immature granulocytes/100 WBC (Bld) 0 % Normal 0 [facility] Comment on above: Performed By: #### C DP, BMP #### [address] [address] [facility] Supervisor: Afshin Mansfield MD Lymphocytes (Bld) [#/Vol] 1.35 10*3/uL Normal 1.0-4.8 [facility] Comment on above: Performed By: #### C DP, BMP #### [address] [address] [facility] Supervisor: Afshin Mansfield MD Lymphocytes/100 WBC (Bld) 9 % Low 24-44 [facility] Comment on above: Performed By: #### C DP, BMP #### [address] [address] [facility] Supervisor: Afshin Mansfield MD Monocytes (Bld) [#/Vol] 1.80 10*3/uL High 0.1-0.8 [facility] Comment on above: Performed By: #### C DP, BMP #### [address] [address] [facility] Supervisor: Afshin Mansfield MD Monocytes/100 WBC (Bld) 12 % High 1-7 [facility] Comment on above: Performed By: #### C DP, BMP #### [address] [address] [facility] Supervisor: Afshin Mansfield MD Morphology Callum (Bld) [Interp] Normal Normal [facility] Comment on above: Performed By: #### C DP, BMP #### [address] [address] [facility] Supervisor: Afshin Mansfield MD Neutrophil (Seg) 79 % High 36-66 [facility] Comment on above: Performed By: #### C DP, BMP #### [address] [address] [facility] Supervisor: Afshin Mansfield MD Erythrocyte distribution width (RBC) [Ratio] 13.8 % Normal 11.8-14.4 [facility] Comment on above: Performed By: #### C DP, BMP #### [address] [address] [facility] Supervisor: Afshin Mansfield MD Hematocrit (Bld) [Volume fraction] 45.2 % Normal 40.7-50.3 [facility] Comment on above: Performed By: #### C DP, BMP #### [address] [address] [facility] Supervisor: Afshin Mansfield MD Hemoglobin (Bld) [Mass/Vol] 15.6 g/dL Normal 13.0-17.0 [facility] Comment on above: Performed By: #### C DP, BMP #### [address] [address] [facility] Supervisor: Afshin Mansfield MD MCH (RBC) [Entitic mass] 30.5 pg Normal 25.2-33.5 [facility] Comment on above: Performed By: #### C DP, BMP #### [address] [address] [facility] Supervisor: Afshin Mansfield MD MCHC (RBC) [Mass/Vol] 34.5 g/dL Normal 28.4-34.8 [facility] Comment on above: Performed By: #### C DP, BMP #### [address] [address] [facility] Supervisor: Afshin Mansfield MD MCV (RBC) [Entitic vol] 88.5 fL Normal 82.6-102.9 [facility] Comment on above: Performed By: #### C DP, BMP #### [address] [address] [facility] Supervisor: Afshin Mansfield MD NRBC Automated 0.0 per 100 WBC Normal 0.0 [facility] Comment on above: Performed By: #### C DP, BMP #### [address] [address] [facility] Supervisor: Afshin Mansfield MD Platelet mean volume (Bld) [Entitic vol] 9.6 fL Normal 8.1-13.5 [facility] Comment on above: Performed By: #### C DP, BMP #### [address] [address] [facility] Supervisor: Afshin Mansfield MD Platelets (Bld) [#/Vol] 235 10*3/uL Normal 138-453 [facility] Comment on above: Performed By: #### C DP, BMP #### [address] [address] [facility] Supervisor: Afshin Mansfield MD RBC (Bld) [#/Vol] 5.11 10*6/uL Normal 4.21-5.77 [facility] Comment on above: Performed By: #### C DP, BMP #### [facility] [address] [place] [address] [facility] Supervisor: Afshin Mansfield MD WBC (Bld) [#/Vol] 15.0 10*3/uL High 3.5-11.3 [facility] Comment on above: Performed By: #### C DP, BMP #### [facility] [address] [place] [address] [facility] Supervisor: Afshin Mansfield MD ECHO Complete 2D W Doppler W Coloron 12-01-2021 Transthoracic Echocardiography Report (TTE) Patient Name EDGAR Date of Study 11/30/2021 SHAHRZAD Date of 1945 Gender Male Age 76 year(s) Race Room Number 0122 Height: 73 inch, 185.42 cm Corporate ID [id number] Weight: 207 pounds, 93.9 kg # Patient Acct [id number] BSA: 2.18 m^2 BMI: 27.31 # kg/m^2 MR # [id number] [employer] Rosmery Walsh Interpreting Physician Vicki Rob Fellow Referring Nurse Practitioner Interpreting Referring Physician Yolie Cabrera Fellow Type of Study TTE procedure:2D Echocardiogram, M-Mode, Doppler, Color Doppler, Bubble Study. Procedure Date Date: 11/30/2021 Start: 02:35 PM Study Location: [facility] Technical Quality: Adequate visualization Indications:Stroke. History / [...] velocity:0.12 m/s Lateral Wall E/E':7.5 [facility] - 12/01/2021 Transthoracic Echocardiography Report (TTE) Patient Name EDGAR Date of Study 11/30/2021 SHAHRZAD Date of 1945 Gender Male Age 76 year(s) Race Room Number 0122 Height: 73 inch, 185.42 cm Corporate ID [id number] Weight: 207 pounds, 93.9 kg # Patient Acct [id number] BSA: 2.18 m^2 BMI: 27.31 # kg/m^2 MR # [id number] [employer] Rosmery Walsh Interpreting Physician Vicki Rob Fellow Referring Nurse Practitioner Interpreting Referring Physician Yolie Cabrera Fellow Type of Study TTE procedure:2D Echocardiogram, M-Mode, Doppler, Color Doppler, Bubble Study. Procedure Date Date: 11/30/2021 Start: 02:35 PM Study Location: [facility] Technical Quality: Adequate visualization Indications:Stroke. History / [...] Wall E' velocity:0.12 m/s Lateral Wall E/E':7.5 [facility] [employer] Work Phone: [employer] Work Phone: POC Glucose Fingerstickon Glucose [Mass/Vol] 132 mg/dL High 75 - 110 mg/dL [facility] Interpretation and review of laboratory results Abnormal [facility] Glucose [Mass/Vol] 129 mg/dL High 75 - 110 mg/dL [facility] Interpretation and review of laboratory results Abnormal [facility] Glucose [Mass/Vol] 369 mg/dL High 75 - 110 mg/dL [facility] Interpretation and review of laboratory results Abnormal [facility] Glucose [Mass/Vol] 196 mg/dL High 75 - 110 mg/dL [facility] Interpretation and review of laboratory results Abnormal [facility] Glucose [Mass/Vol] 181 mg/dL High 75 - 110 mg/dL [facility] Interpretation and review of laboratory results Abnormal [facility] Urinalysis w/ Microon 2021 Bilirubin, SemiQt,Ur Negative Normal NEG [facility] Comment on above: Performed By: #### U AMIC #### [facility] [place] [address] [facility] [place] Supervisor: Afshin Mansfield MD Blood, Urine LARGE Abnormal NEG [facility] Comment on above: Performed By: #### U AMIC #### [facility] [place] [address] [facility] Supervisor: Afshin Mansfield MD Casts 2 TO 5 HYALINE Normal 0-8 [facility] Comment on above: Result Comment: Refe rence range defined for non-centrifuged specimen. Performed By: #### U AMIC #### [address] [address] [facility] Supervisor: Afshin Mansfield MD Clarity (U) Clear Normal CLEAR [facility] Comment on above: Performed By: #### U AMIC #### [address] [address] [facility] Supervisor: Afshin Mansfield MD Color (U) Yellow Normal YEL [facility] Comment on above: Performed By: #### U AMIC #### [address] [address] [facility] Supervisor: Afshin Mansfield MD Epithelial cells LM Ql (Urine sed) 0 TO 2 Normal 0-5 [facility] Comment on above: Performed By: #### U AMIC #### [address] [address] [facility] Supervisor: Afshin Mansfield MD Glucose Ql (U) Negative Normal NEG [facility] Comment on above: Performed By: #### U AMIC #### [address] [address] [facility] Supervisor: Afshin Mansfield MD Ketones Ql (U) TRACE Abnormal NEG [facility] Comment on above: Performed By: #### U AMIC #### [address] [address] [facility] Supervisor: Afshin Mansfield MD Leukocyte esterase Test strip Ql (U) Negative Normal NEG [facility] Comment on above: Performed By: #### U AMIC #### [address] [address] [facility] Supervisor: Afshin Mansfield MD Nitrite,Ur Negative Normal NEG [facility] Comment on above: Performed By: #### U AMIC #### [address] [address] [facility] Supervisor: Afshin Mansfield MD PH,Ur 5.5 Normal 5.0-8.0 [facility] Comment on above: Performed By: #### U AMIC #### [address] [address] [facility] Supervisor: Afshin Mansfield MD Protein Ql (U) TRACE Abnormal NEG [facility] Comment on above: Performed By: #### U AMIC #### [address] [address] [facility] Supervisor: Afshin Mansfield MD Spec. [place],Ur 1.031 High 1.005-1.030 [facility] Comment on above: Performed By: #### U AMIC #### [address] [address] [facility] Supervisor: Afshin Mansfield MD Urine RBC's 20 TO 50 Normal 0-4 [facility] Comment on above: Result Comment: Refe rence range defined for non-centrifuged specimen. Performed By: #### U AMIC #### [address] [address] [facility] Supervisor: Afshin Mansfield MD Urine WBC's 2 TO 5 Normal 0-5 [facility] Comment on above: Performed By: #### U AMIC #### [address] [address] [facility] Supervisor: Afshin Mansfield MD Urobilinogen,Ur Normal Normal NORM [facility] Comment on above: Performed By: #### U AMIC #### [address] [address] [facility] Supervisor: Afshin Mansfield MD Urinalysis with Microscopico n 12-01-2021 Bilirubin Urine Negative NEGATIVE [facility] Casts UA 2 TO 5 HYALINE Reference range defined for non-centrifuged specimen. [facility] Color, UA Yellow Yellow [facility] Epithelial Cells UA 0 TO 2 [facility] Glucose, Ur Negative NEGATIVE [facility] Interpretation and review of laboratory results Abnormal [facility] Ketones Ql (U) TRACE Abnormal NEGATIVE [facility] Leukocyte esterase Test strip Ql (U) Negative NEGATIVE [facility] Nitrite, Urine Negative NEGATIVE [facility] pH, UA 5.5 5 - 8 [facility] Protein, UA TRACE Abnormal NEGATIVE [facility] RBC, UA 20 TO 50 [facility] Comment on above: Reference range defi alisha for non-centrifuged specimen. Specific [place], UA 1.031 High 1.005 - 1.03 [facility] Turbidity UA Clear Clear [facility] Urine Hgb LARGE Abnormal NEGATIVE [facility] Urobilinogen, Urine Normal Normal [facility] WBC, UA 2 TO 5 [facility] Basic Metabolic Panelon 09- Anion gap [Moles/Vol] 11 mmol/L 9 - 17 mmol/L [facility] Calcium [Mass/Vol] 7.7 mg/dL Low 8.6 - 10. 4 mg/dL [facility] Chloride [Moles/Vol] 102 mmol/L 98 - 10 7 mmol/L [facility] CO2 [Moles/Vol] 21 mmol/L 20 - 31 mmol/L [facility] Creatinine [Mass/Vol] 0.79 mg/dL 0.7 - 1.2 mg/dL [facility] GFR >60 60 - PI NF mL/min [facility] GFR Non- >60 60 - PINF mL/min [facility] GFR/1.73 sq M.predicted MDRD (S/P/Bld) [Vol rate/Area] [facility] Comment on above: Average GFR for 70 o r more years old: 75 mL/min/1.73sq m Chronic Kidney Disease: <60 mL/min/1.73sq m Kidney failure: <15 mL/min/1.73sq m eGFR calculated using average adult body mass. Additional eGFR calculator available at: http://www.FreshT/multiple_crcl_2012.htm Glucose [Mass/Vol] 196 mg/dL High 70 - 99 mg/dL [facility] Interpretation and review of laboratory results Abnormal [facility] Potassium [Moles/Vol] 4.5 mmol/L 3.7 - 5.3 mmol/L [facility] Sodium [Moles/Vol] 134 mmol/L Low 135 - 144 mmol/L [facility] Urea nitrogen (BldV) [Mass/Vol] 17 mg/dL 8 - 23 mg/dL [facility] Basic Metabolic Profon 11-30 Glucose [Mass/Vol] 196 mg/dL High 70-99 [facility] Comment on above: Performed By: #### C LÓPEZ HOLLINGSWORTHHGB, BMP #### [facility] [employer] [address] [place] [phone] [facility] Supervisor: Afshin Mansfield MD (cont.) [facility] Comment on above: Result Comment: Aver age GFR for 70 or more years old: 75 mL/min/1.73sq m Chronic Kidney Disease: <60 mL/min/1.73sq m Kidney failure: <15 mL/min/1.73sq m eGFR calculated using average adult body mass. Additional eGFR calculator available at: http://www.FreshT/multiple_crcl_2012.htm Performed By: #### C DARRICK GLYHGB, BMP #### [facility] [address] [place] [id number] [facility] Supervisor: Afshin Mansfield MD Anion gap [Moles/Vol] 11 mmol/L Normal 9-17 [facility] Comment on above: Performed By: #### Amara HOLLINGSWORTH GLYHGB, BMP #### [facility] [address] [place] [address] [phone] [facility] Supervisor: Afshin Mansfield MD Calcium [Mass/Vol] 7.7 mg/dL Low 8.6-10.4 [facility] Comment on above: Performed By: #### C BC, GLYHGB, BMP #### [facility] [address] [place] [address] [facility] Supervisor: Afshin Mansfield MD Chloride [Moles/Vol] 102 mmol/L Normal 98-107 [facility] Comment on above: Performed By: #### C BC, GLYHGB, BMP #### [facility] [employer] [address] [place] [address] [facility] Supervisor: Afshin Mansfield MD CO2 [Moles/Vol] 21 mmol/L Normal 20-31 [facility] Comment on above: Performed By: #### C BC, GLYHGB, BMP #### [facility] [employer] [address] [place] [address] [facility] Supervisor: Afshin Mansfield MD Creatinine [Mass/Vol] 0.79 mg/dL Normal 0.70-1.20 [facility] Comment on above: Performed By: #### C BC, GLYHGB, BMP #### [facility] [employer] [address] [place] [address] [facility] Supervisor: Afshin Mansfield MD GFR, Amer >60 Normal >60 [facility] Comment on above: Performed By: #### C BC, GLYHGB, BMP #### [facility] [address] [place] [address] [facility] Supervisor: Afshin Mansfield MD GFR,non Amer >60 Normal >60 [facility] Comment on above: Performed By: #### C BC, GLYHGB, BMP #### [facility] [employer] [address] [place] [address] [facility] Supervisor: Afshin Mansfield MD Potassium [Moles/Vol] 4.5 mmol/L Normal 3.7-5.3 [facility] Comment on above: Performed By: #### C BC, GLYHGB, BMP #### [facility] [address] [place], [place] [id number] [facility] Supervisor: Afshin Mansfield MD Sodium [Moles/Vol] 134 mmol/L Low 135-144 [facility] Comment on above: Performed By: #### C BC, GLYHGB, BMP #### [facility] [address] [place], [place] [phone] [facility] Supervisor: Afshin Mansfield MD Urea nitrogen [Mass/Vol] 17 mg/dL Normal 8-23 [facility] Comment on above: Performed By: #### C BC, GLYHGB, BMP #### [facility] [address] [place], [place] [phone] [facility] Supervisor: Afshin Mansfield MD CBC with Auto Differentialon 11-30-2021 Absolute Eos # [facility] Absolute Immature Granulocyte 0.12 [facility] Absolute Lymph # 1.09 Low [facility] Absolute Sunflower # 1.40 High [facility] Basophils Absolute [facility] Basophils/100 WBC (Bld) 0 % 0 - 2 % [facility] Eosinophils/100 WBC (Bld) 0 % Low 1 - 4 % [facility] Hematocrit (Bld) [Volume fraction] 41.7 % 40.7 - 50.3 % [facility] Hemoglobin (Bld) [Mass/Vol] 13.9 g/dL 13 - 17 g/dL [facility] Immature granulocytes/100 WBC (Bld) 1 % High 0 [facility] Interpretation and review of laboratory results Abnormal [facility] Lymphocytes/100 WBC (Bld) 8 % Low 24 - 43 % [facility] MCH (RBC) [Entitic mass] 29.6 pg 25.2 - 33.5 pg [facility] MCHC (RBC) [Mass/Vol] 33.3 g/dL 28.4 - 34.8 g/dL [facility] MCV (RBC) [Entitic vol] 88.7 fL 82.6 - 102.9 fL [facility] Monocytes/100 WBC (Bld) 10 % 3 - 12 % [facility] NRBC Automated 0.0 0.0 per 100 WBC [facility] Platelet distribution width (Bld) [Ratio] 14.0 % 11.8 - 14.4 % [facility] Platelet mean volume (Bld) [Entitic vol] 10.2 fL 8.1 - 13.5 fL [facility] Platelets (Bld) [#/Vol] 230 10*3/uL [facility] RBC (Bld) [#/Vol] 4.70 10*6/uL 4.21 - 5.7 7 m/uL [facility] Segmented neutrophils/100 WBC (Bld) 81 % High 36 - 65 % [facility] Segs Absolute 11.07 High [facility] WBC (Bld) [#/Vol] 13.7 10*3/uL High [facility] CBC with Diffon 11-30-2021 Abs. Basophil <0.03 Normal 0.00-0.20 [facility] Comment on above: Performed By: #### C DAVEY HOLLINGSWORTH BMP #### [facility] [employer] [address] [place] [address] [facility] Supervisor: Afshin Mansfield MD Abs. Eosinophil <0.03 Normal 0.00-0.44 [facility] Comment on above: Performed By: #### DAVEY PICHARDO, BMP #### [facility] [address] [place] [address] [facility] Supervisor: Afshin Mansfield MD Abs.Imm.Granulocyte 0.12 k/uL Normal 0.00-0.30 [facility] Comment on above: Performed By: #### C DAVEY HOLLINGSWORTH, BMP #### [facility] [address] [place], [place] [phone] [facility] Supervisor: Afshin Mansfield MD Abs.Neutrophil (Seg) 11.07 k/uL High 1.50-8.10 [facility] Comment on above: Performed By: #### C BC, GLYHGB, BMP #### [facility] [employer] [address] [place] [address] [facility] Supervisor: Afshin Mansfield MD Basophils/100 WBC (Bld) 0 % Normal 0-2 [facility] Comment on above: Performed By: #### C BC, GLYHGB, BMP #### [facility] [employer] [address] [place] [address] [facility] Supervisor: Afshin Mansfield MD Eosinophils/100 WBC (Bld) 0 % Low 1-4 [facility] Comment on above: Performed By: #### C BC, GLYHGB, BMP #### [facility] [employer] [address] [place] [address] [facility] Supervisor: Afshin Mansfield MD Erythrocyte distribution width (RBC) [Ratio] 14.0 % Normal 11.8-14.4 [facility] Comment on above: Performed By: #### C BC, GLYHGB, BMP #### [facility] [employer] [address] [place] [address] [facility] Supervisor: Afshin Mansfield MD Hematocrit (Bld) [Volume fraction] 41.7 % Normal 40.7-50.3 [facility] Comment on above: Performed By: #### C BC, GLYHGB, BMP #### [facility] [employer] [address] [place] [address] [facility] Supervisor: Afshin Mansfield MD Hemoglobin (Bld) [Mass/Vol] 13.9 g/dL Normal 13.0-17.0 [facility] Comment on above: Performed By: #### C BC, GLYHGB, BMP #### [facility] [employer] [address] [place] [address] [facility] Supervisor: Afshin Mansfield MD Immature granulocytes/100 WBC (Bld) 1 % High 0 [facility] Comment on above: Performed By: #### C BC, GLYHGB, BMP #### [address] [address] [facility] Supervisor: Afshin Mansfield MD Lymphocytes (Bld) [#/Vol] 1.09 10*3/uL Low 1.10-3.70 [facility] Comment on above: Performed By: #### C BC, GLYHGB, BMP #### [address] [address] [facility] Supervisor: Afshin Mansfield MD Lymphocytes/100 WBC (Bld) 8 % Low 24-43 [facility] Comment on above: Performed By: #### C BC, GLYHGB, BMP #### [address] [address] [facility] Supervisor: Afshin Mansfield MD MCH (RBC) [Entitic mass] 29.6 pg Normal 25.2-33.5 [facility] Comment on above: Performed By: #### C BC, GLYHGB, BMP #### [facility] [employer] [address] [place] [address] [facility] Supervisor: Afshin Mansfield MD MCHC (RBC) [Mass/Vol] 33.3 g/dL Normal 28.4-34.8 [facility] Comment on above: Performed By: #### C BC, GLYHGB, BMP #### [address] [address] [facility] Supervisor: Afshin Mansfield MD MCV (RBC) [Entitic vol] 88.7 fL Normal 82.6-102.9 [facility] Comment on above: Performed By: #### C BC, GLYHGB, BMP #### [address] [address] [facility] Supervisor: Afshin Mansfield MD Monocytes (Bld) [#/Vol] 1.40 10*3/uL High 0.10-1.20 [facility] Comment on above: Performed By: #### C BC, GLYHGB, BMP #### [facility] [employer] [address] [place] [address] [facility] Supervisor: Afshin Mansfield MD Monocytes/100 WBC (Bld) 10 % Normal 3-12 [facility] Comment on above: Performed By: #### C BC, GLYHGB, BMP #### [facility] [employer] [address] [place] [address] [facility] Supervisor: Afshin Mansfield MD Neutrophil (Seg) 81 % High 36-65 [facility] Comment on above: Performed By: #### C BC, GLYHGB, BMP #### [facility] [employer] [address] [place] [address] [place] Supervisor: Afshin Mansfield MD NRBC Automated 0.0 per 100 WBC Normal 0.0 [facility] Comment on above: Performed By: #### C BC, GLYHGB, BMP #### [facility] [address] [place] [address] [place] Supervisor: Afshin Mansfield MD Platelet mean volume (Bld) [Entitic vol] 10.2 fL Normal 8.1-13.5 [facility] Comment on above: Performed By: #### C DARRICK GLYHGB, BMP #### [facility] [employer] [address] [place] [address] [place] Supervisor: Afshin Mansfield MD Platelets (Bld) [#/Vol] 230 10*3/uL Normal 138-453 [facility] Comment on above: Performed By: #### C BC, GLYHGB, BMP #### [facility] [employer] [address] [place] [address] [place] Supervisor: Afshin Mansfield MD RBC (Bld) [#/Vol] 4.70 10*6/uL Normal 4.21-5.77 [facility] Comment on above: Performed By: #### C BC, GLYHGB, BMP #### [facility] [address] [place] [address] Hide House Supervisor: Afshin Mansfield MD WBC (Bld) [#/Vol] 13.7 10*3/uL High 3.5-11.3 [facility] Comment on above: Performed By: #### C BC, GLYHGB, BMP #### [facility] [address] [place] [address] Hide House Supervisor: Afshin Mansfield MD EKG 12 LeadOrdered By: Constance Rob on 11-30-2021 Atrial Rate 65 BPM [employer] Work Phone: P [place] 77 degrees [employer] Work Phone: P-R Interval 172 ms [employer] Work Phone: Q-T Interval 462 ms [employer] Work Phone: QRS Duration 84 ms [employer] Work Phone: QTc Calculation (Bazett) 480 ms [employer] Work Phone: R [place] 27 degrees [employer] Work Phone: T [place] 53 degrees [employer] Work Phone: Ventricular Rate 65 BPM [employer] Work Phone: [employer] Work Phone: EKG 12 Leadon 11-30-2021 Normal sinus rhythm Low voltage QRS Inferior infarct , age undetermined Abnormal ECG No previous ECGs available [facility] Vicki Dash MD - 11/30/2021 Normal sinus rhythm Low voltage QRS Inferior infarct , age undetermined Abnormal ECG No previous ECGs available [employer] Work Phone: POC Glucose Fingerstickon Glucose [Mass/Vol] 160 mg/dL High 75 - 110 mg/dL [employer] Interpretation and review of laboratory results Abnormal [facility] Glucose [Mass/Vol] 181 mg/dL High 75 - 110 mg/dL [facility] Interpretation and review of laboratory results Abnormal [facility] Glucose [Mass/Vol] 182 mg/dL High 75 - 110 mg/dL [facility] Interpretation and review of laboratory results Abnormal [facility] Basic Metabolic Panelon Anion gap [Moles/Vol] 12 mmol/L 9 - 17 mmol/L [facility] Calcium [Mass/Vol] 8.3 mg/dL Low 8.6 - 10. 4 mg/dL [facility] Chloride [Moles/Vol] 101 mmol/L 98 - 10 7 mmol/L [facility] CO2 [Moles/Vol] 20 mmol/L 20 - 31 mmol/L [facility] Creatinine [Mass/Vol] 0.89 mg/dL 0.7 - 1.2 mg/dL [facility] GFR >60 60 - PI NF mL/min [facility] GFR Non- >60 60 - PINF mL/min [facility] GFR/1.73 sq M.predicted MDRD (S/P/Bld) [Vol rate/Area] [facility] Comment on above: Average GFR for 70 o r more years old: 75 mL/min/1.73sq m Chronic Kidney Disease: <60 mL/min/1.73sq m Kidney failure: <15 mL/min/1.73sq m eGFR calculated using average adult body mass. Additional eGFR calculator available at: http://www.Biocroí.Mocapay/multiple_crcl_2012.htm Glucose [Mass/Vol] 198 mg/dL High 70 - 99 mg/dL [facility] Interpretation and review of laboratory results Abnormal [facility] Potassium [Moles/Vol] 4.4 mmol/L 3.7 - 5.3 mmol/L [facility] Sodium [Moles/Vol] 133 mmol/L Low 135 - 144 mmol/L [facility] Urea nitrogen (BldV) [Mass/Vol] 14 mg/dL 8 - 23 mg/dL [facility] Basic Metabolic Profon 11-29 (cont.) Normal [facility] Comment on above: Result Comment: Aver age GFR for 70 or more years old: 75 mL/min/1.73sq m Chronic Kidney Disease: <60 mL/min/1.73sq m Kidney failure: <15 mL/min/1.73sq m eGFR calculated using average adult body mass. Additional eGFR calculator available at: http://www.FreshT/multiple_crcl_2012.htm Performed By: #### I OCAL, BMP, CDP #### [facility] [address] [place] [address] [employer] [place] Supervisor: Afshin Mansfield MD Anion gap [Moles/Vol] 12 mmol/L Normal 9-17 [facility] Comment on above: Performed By: #### I OCAL, BMP, CDP #### [facility] [address] [place] [address] [employer] [place] Supervisor: Afshin Mansfield MD Calcium [Mass/Vol] 8.3 mg/dL Low 8.6-10.4 [facility] Comment on above: Performed By: #### I OCAL, BMP, CDP #### [facility] [address] [place] [address]26 Hide [place] Supervisor: Afshin Mansfield MD Chloride [Moles/Vol] 101 mmol/L Normal 98-107 [facility] Comment on above: Performed By: #### I OCAL, BMP, CDP #### [facility] [address] [place] [address]27 [employer] [place] Supervisor: Afshin Mansfield MD CO2 [Moles/Vol] 20 mmol/L Normal 20-31 [facility] Comment on above: Performed By: #### I OCAL, BMP, CDP #### [facility] [address] [place] [address]246 [employer] [place] Supervisor: Afshin Mansfield MD Creatinine [Mass/Vol] 0.89 mg/dL Normal 0.70-1.20 [facility] Comment on above: Performed By: #### I DALE REYES, CDP #### [facility] [employer] [address] [place] [address]46 Hide [place] Supervisor: Afshin Mansfield MD GFR, Amer >60 Normal >60 [facility] Comment on above: Performed By: #### I AMY BMP, CDP #### [facility] [address] [place] [address] Hide [place] Supervisor: Afshin Mansfield MD GFR,non Amer >60 Normal >60 [facility] Comment on above: Performed By: #### DALE KINNEY, CDP #### [facility] [employer] [address] [place] [address]60 [place] Supervisor: Afshin Mansfield MD Glucose [Mass/Vol] 198 mg/dL High 70-99 [facility] Comment on above: Performed By: #### DALE KINNEY, CDP #### [facility] [employer] [address] [place] [address] 7[address]36 Hide [place] Supervisor: Afshin Mansfield MD Potassium [Moles/Vol] 4.4 mmol/L Normal 3.7-5.3 [facility] Comment on above: Performed By: #### DALE KINNEY, CDP #### [facility] [address] [place] [address]10 Hide [place] Supervisor: Afshin Mansfield MD Sodium [Moles/Vol] 133 mmol/L Low 135-144 [facility] Comment on above: Performed By: #### I DALE REYES, CDP #### [facility] [employer] [address] [place] [address] 38875 [facility] [place] Supervisor: Afshin Mansfield MD Urea nitrogen [Mass/Vol] 14 mg/dL Normal 8-23 [facility] Comment on above: Performed By: #### Shadi REYES BMP, CDP #### [facility] [address] [place] [address] Hide House Supervisor: Afshin Mansfield MD CBC with Auto Differentialon 11-29-2021 Absolute Eos # 0.00 [facility] Absolute Immature Granulocyte 0.19 [facility] Absolute Lymph # 0.57 Low [facility] Absolute Sunflower # 1.33 High [facility] Basophils (Bld) [#/Vol] 0.00 10*3/uL [facility] Basophils/100 WBC (Bld) 0 % 0 - 2 % [facility] Eosinophils/100 WBC (Bld) 0 % Low 1 - 4 % [facility] Hematocrit (Bld) [Volume fraction] 40.4 % Low 40.7 - 50.3 % [facility] Hemoglobin (Bld) [Mass/Vol] 13.6 g/dL 13 - 17 g/dL [facility] Immature granulocytes/100 WBC (Bld) 1 % High 0 [facility] Interpretation and review of laboratory results Abnormal [facility] Lymphocytes/100 WBC (Bld) 3 % Low 24 - 43 % [facility] MCH (RBC) [Entitic mass] 30.5 pg 25.2 - 33.5 pg [facility] MCHC (RBC) [Mass/Vol] 33.7 g/dL 28.4 - 34.8 g/dL [facility] MCV (RBC) [Entitic vol] 90.6 fL 82.6 - 102.9 fL [facility] Monocytes/100 WBC (Bld) 7 % 3 - 12 % [facility] Morphology Callum (Bld) [Interp] Normal [facility] NRBC Automated 0.0 0.0 per 100 WBC [facility] Platelet distribution width (Bld) [Ratio] 13.7 % 11.8 - 14.4 % [facility] Platelet mean volume (Bld) [Entitic vol] 9.9 fL 8.1 - 13.5 fL [facility] Platelets (Bld) [#/Vol] 250 10*3/uL [facility] RBC (Bld) [#/Vol] 4.46 10*6/uL 4.21 - 5.7 7 m/uL [facility] Segmented neutrophils/100 WBC (Bld) 89 % High 36 - 65 % [facility] Segs Absolute 16.91 High [facility] WBC (Bld) [#/Vol] 19.0 10*3/uL High [facility] CBC with Diffon 11-29-2021 Abs. Basophil 0.00 k/uL Normal 0.00-0.20 [facility] Comment on above: Performed By: #### I OCDALE BARBER, CDP #### [facility] [address] [place] [address] Hide House Supervisor: Afshin Mansfield MD Abs.Imm.Granulocyte 0.19 k/uL Normal 0.00-0.30 [facility] Comment on above: Performed By: #### I OCSUNIL BMP, CDP #### [facility] [address] [place] [address] Hide House Supervisor: Afshin Mansfield MD Abs.Neutrophil (Seg) 16.91 k/uL High 1.50-8.10 [facility] Comment on above: Performed By: #### I OCSUNIL BMP, CDP #### [facility] [address] [place] [address] Hide House Supervisor: Afshin Mansfield MD Basophils/100 WBC (Bld) 0 % Normal 0-2 [facility] Comment on above: Performed By: #### I OCSUNIL BMP, CDP #### [facility] [address] [place] [address] 79430 [facility] [place] Supervisor: Afshin Mansfield MD Eosinophils (Bld) [#/Vol] 0.00 10*3/uL Normal 0.00-0.44 [facility] Comment on above: Performed By: #### I OCSUNIL BMP, CDP #### [facility] [address] [place] [address] Hide House Supervisor: Afshin Mansfield MD Eosinophils/100 WBC (Bld) 0 % Low 1-4 [facility] Comment on above: Performed By: #### I OCAL, BMP, CDP #### [facility] [address] [place] [address] Hide House Supervisor: Afshin Mansfield MD Immature granulocytes/100 WBC (Bld) 1 % High 0 [facility] Comment on above: Performed By: #### I OCAL, BMP, CDP #### [facility] [address] [place] [address] 58156 [employer] [place] Supervisor: Afshin Mansfield MD Lymphocytes (Bld) [#/Vol] 0.57 10*3/uL Low 1.10-3.70 [facility] Comment on above: Performed By: #### I OCAL, BMP, CDP #### [facility] [address] [place] [address] 02550 Hide [place] Supervisor: Afshin Mansfield MD Lymphocytes/100 WBC (Bld) 3 % Low 24-43 [facility] Comment on above: Performed By: #### I OCAL, BMP, CDP #### [facility] [address] [place] [address] 56431 Hide [place] Supervisor: Afshin Mansfield MD Monocytes (Bld) [#/Vol] 1.33 10*3/uL High 0.10-1.20 [facility] Comment on above: Performed By: #### I OCAL, BMP, CDP #### [facility] [address] [place] [address] 51797 [facility] [place] Supervisor: Afshin Mansfield MD Monocytes/100 WBC (Bld) 7 % Normal 3-12 [facility] Comment on above: Performed By: #### I OCAL, BMP, CDP #### [facility] [address] [place] [address] 77592 [facility] [place] Supervisor: Afshin Mansfield MD Morphology Callum (Bld) [Interp] Normal Normal [facility] Comment on above: Performed By: #### I DALE REYES, CDP #### [facility] [employer] [address] [place] [address] 67926 [facility] [place] Supervisor: Afshin Mansfield MD Neutrophil (Seg) 89 % High 36-65 [facility] Comment on above: Performed By: #### I DALE REYES, CDP #### [facility] [employer] [address] [place] [address] 82611 Hide [place] Supervisor: Afshin Mansfield MD Erythrocyte distribution width (RBC) [Ratio] 13.7 % Normal 11.8-14.4 [facility] Comment on above: Performed By: #### DALE KINNEY, CDP #### [facility] [employer] [address] [place] [address] 85826 [facility] [place] Supervisor: Afshin Mansfield MD Hematocrit (Bld) [Volume fraction] 40.4 % Low 40.7-50.3 [facility] Comment on above: Performed By: #### I DALE REYES, CDP #### [facility] [employer] [address] [place] [address] 42950 [facility] [place] Supervisor: Afshin Mansfield MD Hemoglobin (Bld) [Mass/Vol] 13.6 g/dL Normal 13.0-17.0 [facility] Comment on above: Performed By: #### I DALE REYES, CDP #### [facility] [employer] [address] [place] [address] 17347 [facility] [place] Supervisor: Afshin Mansfield MD MCH (RBC) [Entitic mass] 30.5 pg Normal 25.2-33.5 [facility] Comment on above: Performed By: #### I DALE REYES, CDP #### [facility] [employer] [address] [place] [address] 99072 Hide [place] Supervisor: Afshin Mansfield MD MCHC (RBC) [Mass/Vol] 33.7 g/dL Normal 28.4-34.8 [facility] Comment on above: Performed By: #### I OCDALE BARBER, CDP #### [address] [address] [employer] House Supervisor: Afshin Mansfield MD MCV (RBC) [Entitic vol] 90.6 fL Normal 82.6-102.9 [facility] Comment on above: Performed By: #### I OCSUNIL BMP, CDP #### [facility] [employer] [address] [place] [address] 43638 Hide House Supervisor: Afshin Mansfield MD NRBC Automated 0.0 per 100 WBC Normal 0.0 [facility] Comment on above: Performed By: #### I OCDALE BARBER, CDP #### [address] [address] [employer] Supervisor: Afshin Mansfield MD Platelet mean volume (Bld) [Entitic vol] 9.9 fL Normal 8.1-13.5 [facility] Comment on above: Performed By: #### I DALE REYES, CDP #### [address] [address] [employer] Supervisor: Afshin Mansfield MD Platelets (Bld) [#/Vol] 250 10*3/uL Normal 138-453 [facility] Comment on above: Performed By: #### I DALE REYES, CDP #### [address] [address] [employer] House Supervisor: Afshin Mansfield MD RBC (Bld) [#/Vol] 4.46 10*6/uL Normal 4.21-5.77 [facility] Comment on above: Performed By: #### I OCDALE BARBER, CDP #### [address] [address] [facility] House Supervisor: Afshin Mansfield MD WBC (Bld) [#/Vol] 19.0 10*3/uL High 3.5-11.3 [facility] Comment on above: Performed By: #### I OCSUNIL, DALE, CDP #### [facility] [address] [place] [id number] Hide House Supervisor: Afshin Mansfield MD CT HEAD WO CONTRASTon [...] Anders Shepard MD 11/29/21 Final result Normal [facility] 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 Similar punctate focus of presumed hemorrhage. [facility] RIS CONSOLIDATED EXAMINATION: CT [...] shift. Similar punctate focus of presumed hemorrhage. [facility] [employer] Phone: [facility] [employer] Phone: Radiology Study observation (narrative) [facility] [employer] Phone: Calcium, [employer]icon 11-29-2021 Calcium [Moles/Vol] 1.07 mmol/L Low 1.13-1.33 [facility] Comment on above: Performed By: #### I DALE REYES, CDP #### [facility] [address] [place] [address] Hide House Supervisor: Afshin Mansfield MD Calcium, Ionizedon Calcium, Ionized 1.07 mmol/L Low 1.13 - 1.33 mmol/L [facility] Interpretation and review of laboratory results Abnormal [facility] Magnesiumon 11-29-2021 Magnesium [Mass/Vol] 2.6 mg/dL Normal 1.6-2.6 [facility] Comment on above: Performed By: #### I DALE REYES, CDP #### [facility] [address] [place] [address] Hide House Supervisor: Afshin Mansfield MD Magnesium [Mass/Vol] 2.6 mg/dL 1.6 - 2 .6 mg/dL [facility] POC Glucose Fingerstickon Glucose [Mass/Vol] 199 mg/dL High 75 - 110 mg/dL [facility] Interpretation and review of laboratory results Abnormal [facility] Glucose [Mass/Vol] 211 mg/dL High 75 - 110 mg/dL [facility] Interpretation and review of laboratory results Abnormal [facility] Glucose [Mass/Vol] 213 mg/dL High 75 - 110 mg/dL [facility] Interpretation and review of laboratory results Abnormal [facility] Glucose [Mass/Vol] 195 mg/dL High 75 - 110 mg/dL [facility] Interpretation and review of laboratory results Abnormal [facility] Glucose [Mass/Vol] 205 mg/dL High 75 - 110 mg/dL [facility] Interpretation and review of laboratory results Abnormal [facility] [employer] Basic Metabolic Profon 11-28 (cont.) Normal [facility] Comment on above: Result Comment: Aver age GFR for 70 or more years old: 75 mL/min/1.73sq m Chronic Kidney Disease: <60 mL/min/1.73sq m Kidney failure: <15 mL/min/1.73sq m eGFR calculated using average adult body mass. Additional eGFR calculator available at: http://www.Biocroí.Mocapay/multiple_crcl_2012.htm Performed By: #### C BC, GLYHGB, BMP #### [facility] [employer] [address] [place] [address] Hide [place] Supervisor: Afshin Mansfield MD Anion gap [Moles/Vol] 15 mmol/L Normal 9-17 [facility] Comment on above: Performed By: #### C BC, GLYHGB, BMP #### [facility] [employer] [address] [place] [address]73 Hide House Supervisor: Afshin Mansfield MD Calcium [Mass/Vol] 8.1 mg/dL Low 8.6-10.4 [facility] Comment on above: Performed By: #### C BC, GLYHGB, BMP #### [facility] [employer] [address] [place] [address]17 Hide [place] Supervisor: Afshin Mansfield MD Chloride [Moles/Vol] 95 mmol/L Low 98-107 [facility] Comment on above: Performed By: #### C BC, GLYHGB, BMP #### [facility] [employer] [address] [place] [address]30 Hide House Supervisor: Afshin Mansfield MD CO2 [Moles/Vol] 21 mmol/L Normal 20-31 [facility] Comment on above: Performed By: #### C BC, GLYHGB, BMP #### [employer] [address] [place] [address]297 Hide House Supervisor: Afshin Mansfield MD Creatinine [Mass/Vol] 0.94 mg/dL Normal 0.70-1.20 [facility] Comment on above: Performed By: #### C BC, GLYHGB, BMP #### [facility] [address] Hide House Supervisor: Afshin Mansfield MD GFR, Amer >60 Normal >60 [facility] Comment on above: Performed By: #### C BC, GLYHGB, BMP #### [facility] [address] [place] [address]996 Hide House Supervisor: Afshin Mansfield MD GFR,non Amer >60 Normal >60 [facility] Comment on above: Performed By: #### C BC, GLYHGB, BMP #### [facility] [address] [place] [address] Hide House Supervisor: Afshin Mansfield MD Glucose [Mass/Vol] 230 mg/dL High 70-99 [facility] Comment on above: Performed By: #### C BC, GLYHGB, BMP #### [facility] [address] [place] [address]442 Hide House Supervisor: Afshin Mansfield MD Potassium [Moles/Vol] 4.2 mmol/L Normal 3.7-5.3 [facility] Comment on above: Performed By: #### C BC, GLYHGB, BMP #### [facility] [employer] [address] [place] [address] Hide House Supervisor: Afshin Mansfield MD Sodium [Moles/Vol] 131 mmol/L Low 135-144 [facility] Comment on above: Performed By: #### C BC, GLYHGB, BMP #### [facility] [address] [place] [address] [facility] Supervisor: Afshin Mansfield MD Urea nitrogen [Mass/Vol] 10 mg/dL Normal 8-23 [facility] Comment on above: Performed By: #### C BC, GLYHGB, BMP #### [facility] [address] [place] [address]56 [employer] [facility] Supervisor: Afshin Mansfield MD Basic metabolic panelon 09-0 Anion gap [Moles/Vol] 15 mmol/L 9 - 17 mmol/L [facility] Calcium [Mass/Vol] 8.1 mg/dL Low 8.6 - 10. 4 mg/dL [facility] Chloride [Moles/Vol] 95 mmol/L Low 98 - 10 7 mmol/L [facility] CO2 [Moles/Vol] 21 mmol/L 20 - 31 mmol/L [facility] Creatinine [Mass/Vol] 0.94 mg/dL 0.7 - 1.2 mg/dL [facility] GFR >60 60 - PI NF mL/min [facility] GFR Non- >60 60 - PINF mL/min [facility] GFR/1.73 sq M.predicted MDRD (S/P/Bld) [Vol rate/Area] [facility] Comment on above: Average GFR for 70 o r more years old: 75 mL/min/1.73sq m Chronic Kidney Disease: <60 mL/min/1.73sq m Kidney failure: <15 mL/min/1.73sq m eGFR calculated using average adult body mass. Additional eGFR calculator available at: http://www.FreshT/multiple_crcl_2011.htm Glucose [Mass/Vol] 230 mg/dL High 70 - 99 mg/dL [facility] Interpretation and review of laboratory results Abnormal [facility] Potassium [Moles/Vol] 4.2 mmol/L 3.7 - 5.3 mmol/L [facility] Sodium [Moles/Vol] 131 mmol/L Low 135 - 144 mmol/L [facility] Urea nitrogen (BldV) [Mass/Vol] 10 mg/dL 8 - 23 mg/dL [facility] C-Reactive Proteinon 022 CRP [Mass/Vol] 13.7 mg/L High 0.0-5.0 [facility] Comment on above: Performed By: #### I AMY, DALE, CDP #### [facility] [employer] [facility] [place] [address] Hide House Supervisor: Afshin Mansfield MD CRP [Mass/Vol] 13.7 mg/L High 0 - 5 mg/L [facility] Interpretation and review of laboratory results Abnormal [facility] CBCon 11-28-2021 Erythrocyte distribution width (RBC) [Ratio] 13.6 % Normal 11.8-14.4 [facility] Comment on above: Performed By: #### C BC, GLYHGB, BMP #### [facility] [address] [place] [address] [facility] Supervisor: Afshin Mansfield MD Hematocrit (Bld) [Volume fraction] 40.1 % Low 40.7-50.3 [facility] Comment on above: Performed By: #### C BC, GLYHGB, BMP #### [facility] [employer] [address] [place] [address] [facility] Supervisor: Afshin Mansfield MD Hemoglobin (Bld) [Mass/Vol] 13.9 g/dL Normal 13.0-17.0 [facility] Comment on above: Performed By: #### C BC, GLYHGB, BMP #### [facility] [employer] [address] [place] [address] [facility] Supervisor: Afshin Mansfield MD MCH (RBC) [Entitic mass] 30.2 pg Normal 25.2-33.5 [facility] Comment on above: Performed By: #### C BC, GLYHGB, BMP #### [facility] [address] [place] [address] [facility] Supervisor: Afshin Mansfield MD MCHC (RBC) [Mass/Vol] 34.7 g/dL Normal 28.4-34.8 [facility] Comment on above: Performed By: #### C BC, GLYHGB, BMP #### [facility] [employer] [address] [place] [address] [facility] Supervisor: Afshin Mansfield MD MCV (RBC) [Entitic vol] 87.0 fL Normal 82.6-102.9 [facility] Comment on above: Performed By: #### C BC, GLYHGB, BMP #### [facility] [employer] [address] [place] [id number] [employer] [address] Supervisor: Afshin Mansfield MD NRBC Automated 0.0 per 100 WBC Normal 0.0 [facility] Comment on above: Performed By: #### C BC, GLYHGB, BMP #### [facility] [employer] [address] [place] [id number] [address] Supervisor: Afshin Mansfield MD Platelet mean volume (Bld) [Entitic vol] 10.1 fL Normal 8.1-13.5 [facility] Comment on above: Performed By: #### C BC, GLYHGB, BMP #### [facility] [employer] [address] [place] [address] [employer] [address] Supervisor: Afshin Mansfield MD Platelets (Bld) [#/Vol] 222 10*3/uL Normal 138-453 [facility] Comment on above: Performed By: #### C BC, GLYHGB, BMP #### [address] [address] Hide House Supervisor: Afshin Mansfield MD RBC (Bld) [#/Vol] 4.61 10*6/uL Normal 4.21-5.77 [facility] Comment on above: Performed By: #### C BC, GLYHGB, BMP #### [facility] [employer] [address] [place] [address] [employer] [address] Supervisor: Afshin Mansfield MD WBC (Bld) [#/Vol] 13.5 10*3/uL High 3.5-11.3 [facility] Comment on above: Performed By: #### C BC, GLYHGB, BMP #### [facility] [employer] [address] [place] [address] [employer] [address] Supervisor: Afshin Mansfield MD Hematocrit (Bld) [Volume fraction] 40.1 % Low 40.7 - 50.3 % [facility] Hemoglobin (Bld) [Mass/Vol] 13.9 g/dL 13 - 17 g/dL [facility] Interpretation and review of laboratory results Abnormal [facility] MCH (RBC) [Entitic mass] 30.2 pg 25.2 - 33.5 pg [facility] MCHC (RBC) [Mass/Vol] 34.7 g/dL 28.4 - 34.8 g/dL [facility] MCV (RBC) [Entitic vol] 87.0 fL 82.6 - 102.9 fL [facility] NRBC Automated 0.0 0.0 per 100 WBC [facility] Platelet distribution width (Bld) [Ratio] 13.6 % 11.8 - 14.4 % [facility] Platelet mean volume (Bld) [Entitic vol] 10.1 fL 8.1 - 13.5 fL [facility] Platelets (Bld) [#/Vol] 222 10*3/uL [facility] RBC (Bld) [#/Vol] 4.61 10*6/uL 4.21 - 5.7 7 m/uL [facility] WBC (Bld) [#/Vol] 13.5 10*3/uL High [facility] CBC AUTO DIFFon 11-28-2021 BASO # 0.0 103/ul Normal 0.0-0.1 [facility] Comment on above: Performed By: #### H STROPN, CMP, CRP #### [facility] [address] [address] [address] Sea Pugh Basophils/100 WBC (Bld) 0.3 % Normal 0.2-2.0 [facility] [place] [facility] Comment on above: Performed By: #### H STROPN, CMP, CRP #### [facility] [address] [address] [address] Sea Pugh EO # 0.1 103/ul Normal 0.0-0.7 [facility] [place] [facility] Comment on above: Performed By: #### H STROPN, CMP, CRP #### [facility] [address] [place] [address] Dr. Sea Pugh Eosinophils/100 WBC (Bld) 0.8 % Critically low 0.9-7.0 [facility] Comment on above: Performed By: #### H STROPN, CMP, CRP #### [facility] [address] [place] [address] Dr. Sea Pugh Erythrocyte distribution width (RBC) [Ratio] 13.6 % Normal 11.0-15.0 [facility] Comment on above: Performed By: #### H STROPN, CMP, CRP #### [facility] [address] [place] [address] Dr. Sea Pugh Hematocrit (Bld) [Volume fraction] 41.0 % Critically low 42.0-54.0 [facility] Comment on above: Performed By: #### H STROPN, CMP, CRP #### [facility] [address] [place] [address] Dr. Sea Pugh Hemoglobin (Bld) [Mass/Vol] 14.0 g/dL Normal 14.0-18.0 [facility] Comment on above: Performed By: #### H STROPN, CMP, CRP #### [facility] [address] [place] [address] Dr. Sea Pugh IG # 0.04 10e3/ul Critically high 0.00-0.03 [facility] Comment on above: Performed By: #### H STROPN, CMP, CRP #### [facility] [address] [place] [address] Dr. Sea Pugh IG % 0.3 % Normal 0.0-0.5 [facility] Comment on above: Performed By: #### H STROPN, CMP, CRP #### [facility] [address] [place] [address] Dr. Sea Pugh LYMPH # 1.2 103/ul Normal 1.2-3.8 [facility] Comment on above: Performed By: #### H STROPN, CMP, CRP #### [facility] [address] [place] [address] Dr. Sea Pugh Lymphocytes/100 WBC (Bld) 9.7 % Critically low 20.5-60.0 [facility] Comment on above: Performed By: #### H STROPN, CMP, CRP #### [facility] [address] [place] [address] Dr. Sea Pugh MANUAL DIFF REQ NO Normal [facility] Comment on above: Performed By: #### H STROPN, CMP, CRP #### [facility] [address] [place] [address] Dr. Sea Pugh MCH (RBC) [Entitic mass] 29.9 pg Normal 25.9-34.0 [facility] Comment on above: Performed By: #### H STROPN, CMP, CRP #### [facility] [address] [place] [address] Dr. Sea Pugh MCHC (RBC) [Mass/Vol] 34.1 g/dL Normal 29.9-35.2 [facility] Comment on above: Performed By: #### H STROPN, CMP, CRP #### [facility] [address] [place] [address] Dr. Sea Pugh MCV (RBC) [Entitic vol] 87.6 fL Normal 80.0-94.0 [facility] Comment on above: Performed By: #### H STROPN, CMP, CRP #### [facility] [address] [place] [address] Dr. Sea Pugh MONO # 0.9 103/ul Critically high 0.3-0.8 [facility] Comment on above: Performed By: #### H STROPN, CMP, CRP #### [facility] [address] [place] [address] Dr. Sea Pugh Monocytes/100 WBC (Bld) 7.4 % Normal 1.7-12.0 [facility] Comment on above: Performed By: #### H STROPN, CMP, CRP #### [facility] [address] [place] [address] Dr. Sea Pugh NEUT # 10.3 103/ul Critically high 1.4-6.[address] [facility] Comment on above: Performed By: #### H STROPN, CMP, CRP #### [facility] [address] [address] [address] Sea Pugh Neutrophils/100 WBC (Bld) 81.5 % Critically high 43.0-75.0 [facility] Comment on above: Performed By: #### H STROPN, CMP, CRP #### [facility] [address] [address] [address] Sea Pugh Platelet mean volume (Bld) [Entitic vol] 9.8 fL Normal 9.5-13.5 [facility] Comment on above: Performed By: #### H STROPN, CMP, CRP #### [facility] [address] [address] [address] Sea Pugh PLT 247 103/ul Normal 150-450 [facility] Comment on above: Performed By: #### H STROPN, CMP, CRP #### [facility] [address] [address] [address] Sea Pugh RBC 4.68 106/ul Critically low 4.70-6.10 [facility] Comment on above: Performed By: #### H STROPN, CMP, CRP #### [facility] [address] [address] [address] Sea Pugh WBC 12.6 103/ul Critically high 4.0-11.0 [facility] Comment on above: Performed By: #### H STROPN, CMP, CRP #### [facility] [address] [address] [address] Sea Pugh CRPon 11-28-2021 CRP 0.3 mg/dL Normal <=1.0 [facility] Comment on above: Performed By: #### H STROPN, CMP, CRP #### [facility] [address] [address] [address] HEAD WO CONon [...] VICENTA MARCH Date: 2021-11-28 00:11 Normal [facility] CT HEAD WO CONTRASTon 2021 CT [...] Adalberto Escobar MD 11/28/21 Final result Normal [facility] Radiology Study observation (narrative) [facility] [employer] Work Phone: CTA HEAD NECK W CONTRASTon [...] Adalberto Escobar MD 11/28/21 Final result Normal [facility] CTA head neck with contrasto n 11-28-2021 Radiology Study observation (narrative) [facility] Work Phone: Hemoglobin A1Con 11-28-2021 Glucose [Mass/Vol] 186 mg/dL Normal [facility] Comment on above: Result Comment: The ADA and AACC recommend providing the estimated average glucose result to permit better patient understanding of their HBA1c result. Performed By: #### C BC GLYHGB, BMP #### [employer] [address] [place] [address] [employer] [address] Supervisor: Afshin Mansfield MD HbA1c (Bld) [Mass fraction] 8.1 % High 4.0-6.0 [facility] Comment on above: Performed By: #### C BC GLYHGB, BMP #### [employer] [address] [place], [place] [id number] [employer] Supervisor: Afshin Mansfield MD Hemoglobin A1con 11-28-2021 Glucose [Mass/Vol] 186 mg/dL [facility] Comment on above: The ADA and AACC rec ommend providing the estimated average glucose result to permit better patient understanding of their HBA1c result. HbA1c (Bld) [Mass fraction] 8.1 % High 4 - 6 % [facility] Interpretation and review of laboratory results Abnormal [facility] LACTATE/LACTIC ACIDon 2021 Lactate [Moles/Vol] 1.7 mmol/L Normal 0.4-1.9 [facility] Comment on above: Performed By: #### D DIM #### [facility] [address] [address] [address] Sea Pugh Lipid Panelon 11-28-2021 Cholesterol [Mass/Vol] 122 mg/dL NINF - 200 mg/dL [facility] Comment on above: Cholesterol Guidelines: <200 Desirable 200-240 Borderline >240 Undesirable Cholesterol in HDL [Mass/Vol] 34 mg/dL Low 40 - PINF mg/dL [facility] Comment on above: HDL Guidelines: <40 Undesirable 40-59 Borderline >59 Desirable Cholesterol in LDL [Mass/Vol] 74 mg/dL 0 - 130 mg/dL [facility] Comment on above: LDL Guidelines: <100 Desirable 100-129 Near to/above Desirable 130-159 Borderline >159 Undesirable Direct (measured) LDL and calculated LDL are not interchangeable tests. Cholesterol.total/Cho lesterol in HDL [Mass ratio] 3.6 {ratio} NINF - 5 [facility] Interpretation and review of laboratory results Abnormal [facility] Triglyceride [Mass/Vol] 71 mg/dL NINF - 150 mg/dL [facility] Comment on above: Triglyceride Guidelines: <150 Desirable 150-199 Borderline 200-499 High >499 Very high Based on AHA Guidelines for fasting triglyceride, December 2011. [facility] Lipid Profileon 11-28-2021 Cholesterol [Mass/Vol] 122 mg/dL Normal <200 [facility] Comment on above: Result Comment: Cholesterol Guidelines: <200 Desirable 200-240 Borderline >240 Undesirable Performed By: #### I OCAL, BMP, CDP #### [facility] [place] [address] [address] Supervisor: Afshin Mansfield MD Cholesterol in HDL [Mass/Vol] 34 mg/dL Low >40 [facility] Comment on above: Result Comment: HDL Guidelines: <40 Undesirable 40-59 Borderline >59 Desirable Performed By: #### DALE KINNEY, CDP #### [employer] [address] [place] [address] [phone] [employer] [address] Supervisor: Afshin Mansfield MD Cholesterol in LDL [Mass/Vol] 74 mg/dL Normal 0-130 [facility] Comment on above: Result Comment: LDL Guidelines: <100 Desirable 100-129 Near to/above Desirable 130-159 Borderline >159 Undesirable Direct (measured) LDL and calculated LDL are not interchangeable tests. Performed By: #### I DALE REYES, CDP #### [facility] [address] [place] [address] [phone] [employer] [address] Supervisor: Afshin Mansfield MD Cholesterol.total/Cho lesterol in HDL [Mass ratio] 3.6 {ratio} Normal <5 [facility] Comment on above: Performed By: #### DALE KINNEY, CDP #### [employer] [address] [place] [address] [phone] [employer] [address] Supervisor: Afshin Mansfield MD Triglyceride [Mass/Vol] 71 mg/dL Normal <150 [facility] Comment on above: Result Comment: Triglyceride Guidelines: <150 Desirable 150-199 Borderline 200-499 High >499 Very high Based on AHA Guidelines for fasting triglyceride, December 2011. Performed By: #### DALE KINNEY, CDP #### [employer] [address] [place] [address] [phone] [employer] [address] Supervisor: Afshin Mansfield MD MRI BRAIN W WO [...] Anders Shepard MD 11/28/21 Final result Normal [facility] Subacute ischemia involving the right parietal/temporal lobe [...] demonstrate no acute abnormality. [facility] RIS Anders Merino MD - 11/28/2021 EXAMINATION: MRI [...] mass effect, and minimal leftward midline shift. [employer] Phone: Radiology Study observation (narrative) [employer] Phone: MRI BRAIN W WO CONTRASTOrder ed By: Anders Shepard on 11-28-2021 [facility] [employer] Work Phone: Magnesiumon 11-28-2021 Magnesium [Mass/Vol] 1.5 mg/dL Low 1.6-2.6 [facility] Comment on above: Performed By: #### I OCAL, BMP, CDP #### [facility] [employer] [address] [place] [address] [address] Supervisor: Afshin Mansfield MD Interpretation and review of laboratory results Abnormal [facility] Magnesium [Mass/Vol] 1.5 mg/dL Low 1.6 - 2 .6 mg/dL [facility] [employer] No Panel Informationon 11-28 1. Findings appear [...] to Dr. Velázquez on 11/28/2021 at 06:40. [employer] Work Phone: No Panel InformationOrdered By: Adalberto Escobar on 11-28-2021 [employer] Work Phone: POC Glucose [employer] Glucose [Mass/Vol] 223 mg/dL High 75 - 110 mg/dL [facility] Interpretation and review of laboratory results Abnormal [facility] Glucose [Mass/Vol] 242 mg/dL High 75 - 110 mg/dL [facility] Interpretation and review of laboratory results Abnormal [facility] Glucose [Mass/Vol] 262 mg/dL High 75 - 110 mg/dL [facility] Interpretation and review of laboratory results Abnormal [facility] [employer] Glucose [Mass/Vol] 317 mg/dL High 75 - 110 mg/dL [facility] Interpretation and review of laboratory results Abnormal [facility] [employer] PROF 14(COMP METB)on 022 Albumin [Mass/Vol] 3.7 g/dL Normal 3.4-5.0 [facility] Comment on above: Performed By: #### H STROPN, CMP, CRP #### [facility] [address] [address] [address] Sea Pugh Albumin/Globulin [Mass ratio] 0.9 {ratio} Normal [facility] Comment on above: Performed By: #### H STROPN, CMP, CRP #### [facility] [address] [address] [address] Sea Pugh ALP [Catalytic activity/Vol] 150 U/L Critically high 46-116 [facility] Comment on above: Performed By: #### H STROPN, CMP, CRP #### [facility] [address] [address] [address] Sea Pugh ALT [Catalytic activity/Vol] 23 U/L Normal 16-63 [facility] Comment on above: Performed By: #### H STROPN, CMP, CRP #### [facility] [address] [address] [address] Sea Pugh Anion gap [Moles/Vol] 9.8 mmol/L Normal [facility] Comment on above: Performed By: #### H STROPN, CMP, CRP #### [facility] [address] [address] [address] Sea Pugh AST [Catalytic activity/Vol] 20 U/L Normal 15-37 [facility] Comment on above: Performed By: #### H STROPN, CMP, CRP #### [facility] [address] [address] [address] Sea Pugh Bilirubin [Mass/Vol] 1.2 mg/dL Critically high 0.2-1.0 [facility] Comment on above: Performed By: #### H STROPN, CMP, CRP #### [facility] [address] [address] [address] Sea Pugh Calcium [Mass/Vol] 8.5 mg/dL Normal 8.5-10.1 [facility] Comment on above: Performed By: #### H STROPN, CMP, CRP #### [facility] [address] [address] [address] Sea Pugh Chloride [Moles/Vol] 100 mmol/L Normal 98-107 [facility] Comment on above: Performed By: #### H STROPN, CMP, CRP #### [facility] [address] [address] [address] Sea Pugh CO2 [Moles/Vol] 26.8 mmol/L Normal 21.0-32.[address] [facility] Comment on above: Performed By: #### H STROPN, CMP, CRP #### [facility] [address] [address] [address] Sea Pugh Creatinine [Mass/Vol] 1.21 mg/dL Normal 0.70-1.30 [facility] Comment on above: Performed By: #### H STROPN, CMP, CRP #### [facility] [address] [address] [address] Sea Pugh EGFR-AF DOMINICAN >60 Normal >=60 [facility] Comment on above: Performed By: #### H STROPN, CMP, CRP #### [facility] [address] [address] [address] Sea Pugh EGFR-NON AF DOMINICAN 58 mL/min/1.73m2 Critically low >=60 [facility] Comment on above: Performed By: #### H STROPN, CMP, CRP #### [facility] [address] [address] [address] Sea Pugh Globulin (S) [Mass/Vol] 3.9 g/dL Normal [facility] Comment on above: Performed By: #### H STROPN, CMP, CRP #### [facility] [address] [address] [address] Sea Pugh Glucose [Mass/Vol] 165 mg/dL Critically high 74-106 [facility] Comment on above: Performed By: #### H STROPN, CMP, CRP #### [facility] [address] [address] [address] Sea Pugh Potassium [Moles/Vol] 3.6 mmol/L Normal 3.5-5.1 [facility] Comment on above: Performed By: #### H STROPN, CMP, CRP #### [facility] [address] [address] [address] Sea Pugh Protein [Mass/Vol] 7.6 g/dL Normal 6.4-8.2 [facility] Comment on above: Performed By: #### H STROPN, CMP, CRP #### [facility] [address] [address] [address] Sea Pugh Sodium [Moles/Vol] 133 mmol/L Critically low 136-145 [facility] Comment on above: Performed By: #### H STROPN, CMP, CRP #### [facility] [address] [address] [address] Sea Pugh Urea nitrogen [Mass/Vol] 9.0 mg/dL Normal 7.0-18.0 [facility] Comment on above: Performed By: #### H STROPN, CMP, CRP #### [facility] [address] [place], [place] [address] Dr. Sea Pugh Urea nitrogen/Creatinine [Mass ratio] 7.4 mg/mg Normal [facility] Comment on above: Performed By: #### H STROPN, CMP, CRP #### [facility] [address] [place], [place] [address] Dr. Sea Pugh Procalcitoninon 11-28-2021 Procalcitonin 0.10 ng/mL High <0.09 [facility] Comment on above: Result Comment: Suspected Sepsis: [...] entered into the Change in Procalcitonin Calculator (www.taqlda-hqi-ucpbdpktqr.com) to determine the patient's Mortality Risk Prognosis In healthy neonates, plasma Procalcitonin (PCT) concentrations increase gradually after , reaching peak values at about 24 hours of age then decrease to normal values below 0.5 ng/mL by 48-72 hours of age. Performed By: #### I OCAL, BMP, CDP #### [facility] [address] [id number] [employer] [address] Supervisor: Afshin Mansfield MD Interpretation and review of laboratory results Abnormal [facility] Procalcitonin 0.1 ng/mL High NINF - 0.09 ng/mL [facility] Comment on above: Suspected Sepsis: <0.50 [...] entered into the Change in Procalcitonin Calculator (www.pkeovv-mos-gwwgnrnzar.Mocapay) to determine the patient's Mortality Risk Prognosis In healthy neonates, plasma Procalcitonin (PCT) concentrations increase gradually after , reaching peak values at about 24 hours of age then decrease to normal values below 0.5 ng/mL by 48-72 hours of age. [facility] SED RATE [facility] 2021 SED RATE 42 mm/hr Critically high <=[address] [facility] Comment on above: Performed By: #### S EDR #### [facility] [address] [address] [address] Sea Pugh TROPONIN, HIGH SENSITIVITYon 11-28-2021 HSTROP 7.0 pg/mL Normal 4.0-76.1 [facility] Comment on above: Result Comment: CUT- OFF POINTS HAVE BEEN ESTABLISHED BASED ON THE FOURTH UNIVERSAL DEFINITIONS OF MYOCARDIAL INFARCTION. THE UPPER REFERENCE LIMIT (URL) OF TROPONIN, DEFINED THE 99TH PERCENTILE OF cTnI DISTRIBUTION IN A REFERENCE POPULATION, HAS BEEN CONFIRMED THE DECISION THRESHOLD FOR [place] DIAGNOSIS. Performed By: #### H STROPN, CMP, CRP #### [facility] [address] [place], [place] [address] Dr. Sea Pugh Office Visit (Cardiology)on 11-27-2021 [...] Metabolic Panel; Status:Active - Retrospective Authorization; Requested for:[id number]; Overweight with body mass index (BMI) of [...] a) No falls within the last year -[facility] DO Work Phone: Tobacco use status CPHS b) No [facility] DO Work Phone: BNPon 09-22-2021 Natriuretic peptide B (Bld) [Mass/Vol] 836.0 pg/mL Normal <=900.0 [facility] Comment on above: Performed By: #### H STROPN, CMP, BNP ####[facility] [address] [place], [place] [address]TjDr. Sea Pugh CBC AUTO DIFFon 09-22-2021 BASO # 0.1 103/ul Normal 0.0-0.1 [facility] Comment on above: Performed By: #### D DIM #### [facility] [address] [address] [address] Sea Pugh Basophils/100 WBC (Bld) 0.5 % Normal 0.2-2.0 [facility] Comment on above: Performed By: #### D DIM #### [facility] [address] [address] [address] Sea Pugh EO # 0.3 103/ul Normal 0.0-0.7 [facility] Comment on above: Performed By: #### D DIM #### [facility] [address] [address] [address] Sea Pugh Eosinophils/100 WBC (Bld) 3.3 % Normal 0.9-7.0 [facility] Comment on above: Performed By: #### D DIM #### [facility] [address] [address] [address] Sea Pugh Erythrocyte distribution width (RBC) [Ratio] 13.7 % Normal 11.0-15.0 [facility] Comment on above: Performed By: #### D DIM #### [facility] [address] [address] [address] Sea Pugh Hematocrit (Bld) [Volume fraction] 41.3 % Critically low 42.0-54.0 [facility] Comment on above: Performed By: #### D DIM #### [facility] [address] [address] [address] Sea Pugh Hemoglobin (Bld) [Mass/Vol] 14.0 g/dL Normal 14.0-18.0 [facility] Comment on above: Performed By: #### D DIM #### [facility] [address] [place] [address] Dr. Sea Pugh IG # 0.04 10e3/ul Critically high 0.00-0.03 [facility] Comment on above: Performed By: #### D DIM #### [facility] [address] [place] [address] Dr. Sea Pugh IG % 0.4 % Normal 0.0-0.5 [facility] Comment on above: Performed By: #### D DIM #### [facility] [address] [place] [address] Dr. Sea Pugh LYMPH # 1.3 103/ul Normal 1.2-3.8 [facility] Comment on above: Performed By: #### D DIM #### [facility] [address] [place] [address] Dr. Sea Pugh Lymphocytes/100 WBC (Bld) 13.1 % Critically low 20.5-60.0 [facility] Comment on above: Performed By: #### D DIM #### [place] [facility] [facility] [address] [place] [address] Dr. Sea Pugh MANUAL DIFF REQ NO Normal [facility] Comment on above: Performed By: #### D DIM #### [facility] [address] [place] [address] Dr. Sea Pugh MCH (RBC) [Entitic mass] 30.2 pg Normal 25.9-34.0 [facility] Comment on above: Performed By: #### D DIM #### [facility] [address] [place] [address] Dr. Sea Pugh MCHC (RBC) [Mass/Vol] 33.9 g/dL Normal 29.9-35.2 [facility] Comment on above: Performed By: #### D DIM #### [facility] [address] [address] [address] Sea Pugh MCV (RBC) [Entitic vol] 89.0 fL Normal 80.0-94.0 [facility] Comment on above: Performed By: #### D DIM #### [facility] [address] [address] [address] Sea Pugh MONO # 1.0 103/ul Critically high 0.3-0.8 [facility] Comment on above: Performed By: #### D DIM #### [facility] [address] [address] [address] Sea Pugh Monocytes/100 WBC (Bld) 9.8 % Normal 1.7-12.0 [facility] Comment on above: Performed By: #### D DIM #### [facility] [address] [place] [address] Dr. Sea Pugh NEUT # 7.1 103/ul Critically high 1.4-6.5 [facility] Comment on above: Performed By: #### D DIM #### [facility] [address] [place] [address] Dr. Sea Pugh Neutrophils/100 WBC (Bld) 72.9 % Normal 43.0-75.0 [facility] Comment on above: Performed By: #### D DIM #### [facility] [address] [place] [address] Dr. Sea Pugh Platelet mean volume (Bld) [Entitic vol] 9.7 fL Normal 9.5-13.5 [facility] Comment on above: Performed By: #### D DIM #### [facility] [address] [place] [address] Dr. Sea Pugh PLT 247 103/ul Normal 150-450 [facility] Comment on above: Performed By: #### D DIM #### [facility] [address] [place] [address] Dr. Sea Pugh RBC 4.64 106/ul Critically low 4.70-6.10 [facility] Comment on above: Performed By: #### D DIM #### [facility] [address], [place] [address] Dr[address] Sea Pugh WBC 9.8 103/ul Normal 4.0-11.0 [facility] Comment on above: Performed By: #### D DIM #### [facility] [address], [place] [address] Dr[address] eSa Pugh CTA CHEST WO W CONon 022 [...] The subdiaphragmatic abdominal organs included in the ccvio-dv-gxtc do not demonstrate any acute abnormality. IMPRESSION: 1. Normal-appearing thoracic aorta. 2. No CT evidence for acute pulmonary embolus. 3. Otherwise unremarkable CT scan of the chest for acute pathology. Electronically authenticated by: OBI MIDDLETON Date: 2021-09-22 19:33 Normal [facility] Covid-19 PCR (CVDTB)on SARS-CoV-2 (COVID-19) RNA PHOENIX+probe Ql (Unsp spec) Not detected Normal NOT DETECTED [facility] Comment on above: Result Comment: When [...] for this test is supported by the Batting Machine Operator of Health and Human Service's declaration that [...] By: #### H STROPN, CMP, CRP #### [facility] [address] [address] [address] Sea Pugh PROF 14(COMP METB)on 022 Albumin [Mass/Vol] 3.6 g/dL Normal 3.4-5.0 [facility] Comment on above: Performed By: #### H STROPN, CMP, BNP ####[facility] [address] [id number]. Sea Pugh Albumin/Globulin [Mass ratio] 0.9 {ratio} Normal [facility] Comment on above: Performed By: #### H STROPN, CMP, BNP ####[facility] [address] [id number]. Sea Pugh ALP [Catalytic activity/Vol] 143 U/L Critically high 46-116 [facility] Comment on above: Performed By: #### H STROPN, CMP, BNP ####[facility] [address] [id number]. Sea Pugh ALT [Catalytic activity/Vol] 28 U/L Normal 16-63 [facility] Comment on above: Performed By: #### H STROPN, CMP, BNP ####[facility] [address] [address]Dr. Sea Pugh Anion gap [Moles/Vol] 12.6 mmol/L Normal [facility] Comment on above: Performed By: #### H STROPN, CMP, BNP ####[facility] [address] [address]Dr. Sea Pugh AST [Catalytic activity/Vol] 18 U/L Normal 15-37 [facility] Comment on above: Performed By: #### H STROPN, CMP, BNP ####[facility] [address] [address]Dr. Sea Pugh Bilirubin [Mass/Vol] 1.1 mg/dL Critically high 0.2-1.0 [facility] Comment on above: Performed By: #### H STROPN, CMP, BNP ####[facility] [address] [place], [place] [address]Dr. Sea Pugh Calcium [Mass/Vol] 8.7 mg/dL Normal 8.5-10.1 [facility] Comment on above: Performed By: #### H STROPN, CMP, BNP ####[facility] [address] [address]Dr. Sea Pugh Chloride [Moles/Vol] 100 mmol/L Normal 98-107 [facility] Comment on above: Performed By: #### H STROPN, CMP, BNP ####[facility] [address] [address]Dr. Sea Pugh CO2 [Moles/Vol] 27.1 mmol/L Normal 21.0-32.0 [facility] Comment on above: Performed By: #### H STROPN, CMP, BNP ####[facility] [address] [address]Dr. Sea Pugh Creatinine [Mass/Vol] 1.15 mg/dL Normal 0.70-1.30 [facility] Comment on above: Performed By: #### H STROPN, CMP, BNP ####[facility] [address] [address]Dr. Sea Pugh EGFR-AF DOMINICAN >60 Normal >=60 [facility] Comment on above: Performed By: #### H STROPN, CMP, BNP ####[facility] [address] [address]Dr. Sea Pugh EGFR-NON AF DOMINICAN >60 Normal >=60 [facility] Comment on above: Performed By: #### H STROPN, CMP, BNP ####[facility] [address] [address]Dr. Sea Keaton Globulin (S) [Mass/Vol] 3.9 g/dL Normal [facility] Comment on above: Performed By: #### H STROPN, CMP, BNP ####[facility] [address] [address]Dr. Shondapreston Keaton Glucose [Mass/Vol] 214 mg/dL Critically high 74-106 [facility] [place] [facility] Comment on above: Performed By: #### H STROPN, CMP, BNP ####[facility] [address] [place], [place] [address]Dr. Sea Pugh Potassium [Moles/Vol] 3.7 mmol/L Normal 3.5-5.1 [facility] Comment on above: Performed By: #### H STROPN, CMP, BNP ####[facility] [address] [address]Dr. Shondapreston Keaton Protein [Mass/Vol] 7.5 g/dL Normal 6.4-8.2 [facility] Comment on above: Performed By: #### H STROPN, CMP, BNP ####[facility] [address] [place], [place] [address]Dr. Sea Pugh Sodium [Moles/Vol] 136 mmol/L Normal 136-145 [facility] Comment on above: Performed By: #### H STROPN, CMP, BNP ####[facility] [address] [address]Dr. Shondapreston Pugh Urea nitrogen [Mass/Vol] 13.0 mg/dL Normal 7.0-18.0 [facility] Comment on above: Performed By: #### H STROPN, CMP, BNP ####[facility] [address] [address]Dr. Sea Pugh Urea nitrogen/Creatinine [Mass ratio] 11.3 mg/mg Normal [facility] [place] [facility] Comment on above: Performed By: #### H STROPN, CMP, BNP ####[facility] [address] [address]Dr. Sea Pugh PROTIMEon 09-22-2021 INR Coag (PPP) [Relative time] 1.07 {INR} Normal [facility] Comment on above: Performed By: #### P T, PTT ####[facility] [address] [address]Dr. Sea Pugh INR GUIDELINES SEE BELOW Normal [facility] Comment on above: Result Comment: MONTEZ RED INR: 2.0 - 3.0 CONDITIONS NOT LISTED BELOW 2.5 - 3.5 FOR PROSTHETIC HEART VALVE REPLACEMENT 2.5 - 3.5 RECURRENT THROMBOSIS Performed By: #### P T, PTT ####[facility] [address] [place], [place] [address]Dr. Shondapreston Pugh PT Coag (PPP) [Time] 11.5 s Normal 9.0-11.6 [facility] [place] [facility] Comment on above: Performed By: #### P T, PTT ####[facility] [address] [address]Dr. Sea Pugh PTTon 09-22-2021 aPTT Coag (Bld) [Time] 30.2 s Normal 22.3-36.2 [facility] Comment on above: Performed By: #### P T, PTT ####[facility] [address] [place], [place] [address]Dr. Shondapreston uPgh TROPONIN, HIGH SENSITIVITYon 09-22-2021 HSTROP 9.5 pg/mL Normal 4.0-76.1 [facility] Comment on above: Result Comment: CUT- OFF POINTS HAVE BEEN ESTABLISHED BASED ON THE FOURTH UNIVERSAL DEFINITIONS OF MYOCARDIAL INFARCTION. THE UPPER REFERENCE LIMIT (URL) OF TROPONIN, DEFINED THE 99TH PERCENTILE OF cTnI DISTRIBUTION IN A REFERENCE POPULATION, HAS BEEN CONFIRMED THE DECISION THRESHOLD FOR TN DIAGNOSIS. Performed By: #### H STROPN, CMP, BNP ####[facility] [address] [place], [place] [address]ZlMook Pugh XR CHEST 1 Von 09-22-2021 XR [...] FARIBA MCCLURE Date: 2021-09-22 19:39 Normal [facility] CT HEAD WO CONon 08-26-2021 CT [...] by: KENY GREENE Date: 2021-08-26 09:53 Normal [facility] CT ORBIT WO CONon 08-26-2021 CT [...] KENY GREENE Date: 2021-08-26 10:03 Normal [facility] CBC W MANUAL DIFFon 08-23-19 22 ATYPICAL LYMPH # Normal [facility] Comment on above: Performed By: #### D DIM #### [facility] [address] [place] [address] Dr. Sea Pugh ATYPICAL LYMPH % Normal [facility] Comment on above: Performed By: #### D DIM #### [facility] [address] [place] [address] Dr. Sea Pugh BAND # Normal 0.0-0.3 [facility] Comment on above: Performed By: #### D DIM #### [facility] [address] [place] [address] Dr. Sea Pugh BAND % Normal 0-5 [facility] Comment on above: Performed By: #### D DIM #### [facility] [address] [place] [address] Dr. Sea Pugh BASOM # 0.00 103/ul Normal 0.00-0.10 [facility] Comment on above: Performed By: #### D DIM #### [facility] [address] [address] [address] Sea Pugh BASOM % 0.0 % Critically low 0.2-2.0 [facility] Comment on above: Performed By: #### D DIM #### [facility] [address] [place] [address] Dr. Sea Pugh BLAST # Normal [facility] Comment on above: Performed By: #### D DIM #### [facility] [address] [address] [address] Sea Pugh BLAST % Normal [facility] Comment on above: Performed By: #### D DIM #### [facility] [address] [place] [address] Dr. Sea Pugh CORRECTED WBC Normal 4.0-11.0 [facility] Comment on above: Performed By: #### D DIM #### [facility] [address] [place] [address] Dr. Sea Pugh EOS # 0.21 103/ul Normal 0.00-0.70 [facility] Comment on above: Performed By: #### D DIM #### [facility] [address] [place] [address] Dr. Sea Pugh EOS% 2.0 % Normal 0.9-7.0 [facility] Comment on above: Performed By: #### D DIM #### [facility] [address] [place] [address] Dr. Sea Pugh HCT 41.3 % Critically low 42.0-54.0 [facility] Comment on above: Performed By: #### D DIM #### [facility] [address] [place] [address] Dr. Sea Pugh HGB 14.1 g/dl Normal 14.0-18.0 [facility] Comment on above: Performed By: #### D DIM #### [facility] [address] [place] [address] Dr. Sea Pugh LYMPHM # 1.14 103/ul Critically low 1.20-3.[address] [facility] Comment on above: Performed By: #### D DIM #### [facility] [address] [place] [address] Dr. Sea Pugh LYMPHM% 11.0 % Critically low 20.5-60.0 [facility] Comment on above: Performed By: #### D DIM #### [facility] [address] [place] [address] Dr. Sea Pugh MCH 30.9 pg Normal 25.9-34.0 [facility] Comment on above: Performed By: #### D DIM #### [facility] [address] [address] [address] Sea Pugh MCHC 34.1 g/dl Normal 29.9-35.2 [facility] Comment on above: Performed By: #### D DIM #### [facility] [address] [place] [address] Dr. Sea Pugh MCV 90.4 fL Normal 80.0-94.0 [facility] Comment on above: Performed By: #### D DIM #### [facility] [address] [address] [address] Sea Pugh METAMYELOCYTE # Normal [facility] Comment on above: Performed By: #### D DIM #### [facility] [address] [place] [address] Dr. Sea Pugh METAMYELOCYTE % Normal [facility] Comment on above: Performed By: #### D DIM #### [facility] [address] [place] [address] Dr. Sea Pugh MONOM# 1.98 103/ul Critically high 0.30-0.80 [facility] Comment on above: Performed By: #### D DIM #### [facility] [address] [place] [address] Dr. Sea Pugh MONOM% 19.0 % Critically high 1.7-12.[address] [facility] Comment on above: Performed By: #### D DIM #### [facility] [address] [place] [address] Dr. Sea Pugh MPV 9.7 fL Normal 9.5-13.5 [facility] Comment on above: Performed By: #### D DIM #### [facility] [address] [place] [address] Dr. Sea Pugh MYELOCYTE # Normal [facility] Comment on above: Performed By: #### D DIM #### [facility] [address] [place] [address] Dr. Sea Pugh MYELOCYTE % Normal [facility] Comment on above: Performed By: #### D DIM #### [facility] [address] [address] [address] Sea Pugh NRBC Normal [facility] Comment on above: Performed By: #### D DIM #### [facility] [address] [place] [address] Dr. Sea Pugh PLT 259 103/ul Normal 150-450 [facility] Comment on above: Performed By: #### D DIM #### [facility] [address] [place] [address] Dr. Sea Pugh RBC 4.57 106/ul Critically low 4.70-6.[address] [facility] Comment on above: Performed By: #### D DIM #### [facility] [address] [place] [address] Dr. Sea Pugh RDW 13.4 % Normal 11.0-15.0 [facility] Comment on above: Performed By: #### D DIM #### [facility] [address] [place] [address] Dr. Sea Pugh SEG # 7.07 103/ul Critically high 1.40-6.50 [facility] Comment on above: Performed By: #### D DIM #### [facility] [address] [place] [address] Dr. Sea Pugh SEG % 68.0 % Normal 43.0-75.0 [facility] Comment on above: Performed By: #### D DIM #### [facility] [address] [place] [address] Dr. Sea Pugh WBC 10.4 103/ul Normal 4.0-11.0 [facility] Comment on above: Performed By: #### D DIM #### [facility] [address] [place] [address] Dr. Sea Pugh PROF CHEM 8 (BAS METB)on Anion gap [Moles/Vol] 13.5 mmol/L Normal [facility] Comment on above: Performed By: #### H STROPN, CMP, CRP #### [facility] [address] [place] [address] Dr. Sea Pugh Calcium [Mass/Vol] 8.7 mg/dL Normal 8.5-10.1 [facility] Comment on above: Performed By: #### H STROPN, CMP, CRP #### [facility] [address] [address] [address] Sea Pugh Chloride [Moles/Vol] 97 mmol/L Critically low 98-107 [facility] Comment on above: Performed By: #### H STROPN, CMP, CRP #### [facility] [address] [address] [address] Sea Pugh CO2 [Moles/Vol] 24.2 mmol/L Normal 21.0-32.0 [facility] Comment on above: Performed By: #### H STROPN, CMP, CRP #### [facility] [address] [address] [address] Sea Pugh Creatinine [Mass/Vol] 1.26 mg/dL Normal 0.70-1.30 [facility] Comment on above: Performed By: #### H STROPN, CMP, CRP #### [facility] [address] [place] [address] Dr. Sea Pugh EGFR-AF DOMINICAN >60 Normal >=60 [facility] Comment on above: Performed By: #### H STROPN, CMP, CRP #### [facility] [address] [place] [address] Dr. Sea Pugh EGFR-NON AF DOMINICAN 56 mL/min/1.73m2 Critically low >=60 [facility] Comment on above: Performed By: #### H STROPN, CMP, CRP #### [facility] [address] [address] [address] Sea Pugh Glucose [Mass/Vol] 201 mg/dL Critically high 74-106 [facility] [place] [facility] Comment on above: Performed By: #### H STROPN, CMP, CRP #### [facility] [address] [address] [address] Sea Pugh Potassium [Moles/Vol] 3.7 mmol/L Normal 3.5-5.1 [facility] Comment on above: Performed By: #### H STROPN, CMP, CRP #### [facility] [address], [place] [address] Dr. Sea Pugh Sodium [Moles/Vol] 131 mmol/L Critically low 136-145 [facility] Comment on above: Performed By: #### H STROPN, CMP, CRP #### [facility] [address], [place] [address] Dr. Sea Pugh Urea nitrogen [Mass/Vol] 21.0 mg/dL Critically high 7.0-18.0 [facility] Comment on above: Performed By: #### H STROPN, CMP, CRP #### [facility] [address], [place] [address] Dr. Sea Pugh Urea nitrogen/Creatinine [Mass ratio] 16.7 mg/mg Normal [facility] Comment on above: Performed By: #### H STROPN, CMP, CRP #### [facility] [address], [place] [address] Dr. Sea Pugh XR CHEST 2 Von [...] VICENTA MARCH Date: 2021-08-22 05:46 Normal [facility] XR SINUSES 3 VIEWS OR GREATE [...] LOULOU DAVIS Date: 2021-08-22 06:31 Normal [facility] Tobacco Screening.on 022 Adult depression screening assessment No [facility] 250 DO Work Phone: Fall risk assessment a) No falls within the last year [facility] 250 DO Work Phone: Tobacco use status [facility] b) No [facility] 250 DO Work Phone: Vital Signs Date Time Vital Sign Value Performing Clinician Facility 11-23-2024 16:38-0400 Body height 185.4 cm [facility]-23-2024 16:38-0400 Body mass index (BMI) [Ratio] 24.01 kg/m2 [facility] 11-23-2024 16:38-0400 Body weight 82.56 kg [facility] 11-23-2024 16:38-0400 Diastolic blood pressure 58 mm[Hg] [facility] 11-23-2024 16:38-0400 Heart rate 64 /min [facility] 11-23-2024 16:38-0400 Systolic blood pressure 102 mm[Hg] [facility] 11-09-2024 14:25-0400 Body height 185.4 cm [facility] 11-09-2024 14:25-0400 Body mass index (BMI) [Ratio] 24.46 kg/m2 [facility] 11-09-2024 14:25-0400 Body weight 84.1 kg [facility] 11-09-2024 14:25-0400 Diastolic blood pressure 68 mm[Hg] [facility] 11-09-2024 14:25-0400 Heart rate 61 /min [facility] 11-09-2024 14:25-0400 Systolic blood pressure 132 mm[Hg] Clyde Yoo [facility] 11-03-2024 13:40-0400 Body height 185.4 cm Marciano Hi DPM Work Phone: [facility] 11-03-2024 13:40-0400 Body mass index (BMI) [Ratio] 27.97 kg/m2 Marciano Hi DPM Work Phone: [facility] 11-03-2024 13:40-0400 Body weight 96.16 kg Marciano Hi DPM Work Phone: [facility] 11-03-2024 13:40-0400 Respiratory rate 16 /min Marciano Hi DPM Work Phone: [facility] 10-26-2024 14:28-0400 Body height 185.4 cm Veronica Liz MD Work Phone: [facility] 10-26-2024 14:28-0400 Body mass index (BMI) [Ratio] 24.28 kg/m2 Veronica Liz MD Work Phone: [facility] 10-26-2024 14:28-0400 Body weight 83.46 kg Veronica Liz MD Work Phone: [facility] 10-26-2024 14:28-0400 Diastolic blood pressure 60 mm[Hg] Veronica Liz MD Work Phone: [facility] 10-26-2024 14:28-0400 Heart rate 62 /min Veronica Liz MD Work Phone: [facility] 10-26-2024 14:28-0400 Systolic blood pressure 134 mm[Hg] Veronica Liz MD Work Phone: [facility] 05-26-2024 13:28-0500 Body height 185.4 cm Marciano Hi DPM Work Phone: [facility] 05-26-2024 13:28-0500 Body mass index (BMI) [Ratio] 27.97 kg/m2 Marciano Hi DPM Work Phone: [facility] 05-26-2024 13:28-0500 Body weight 96.16 kg Marciano Hi DPM Work Phone: [facility] 05-26-2024 13:28-0500 Respiratory rate 18 /min Marciano Hi DPM Work Phone: [facility] 04-20-2024 13:45-0500 Body height 185.4 cm Veronica Liz MD Work Phone: [facility] 04-20-2024 13:45-0500 Body mass index (BMI) [Ratio] 26.25 kg/m2 Veronica Liz MD Work Phone: [facility] 04-20-2024 13:45-0500 Body weight 90.27 kg Veronica Liz MD Work Phone: [facility] 04-20-2024 13:45-0500 Diastolic blood pressure 58 mm[Hg] Veronica Liz MD Work Phone: [facility] 04-20-2024 13:45-0500 Heart rate 61 /min Veronica Liz MD Work Phone: [facility] 04-20-2024 13:45-0500 Systolic blood pressure 96 mm[Hg] Veronica Liz MD Work Phone: [facility] 03-17-2024 11:51-0500 Body height 185.4 cm Marciano Hi DPM Work Phone: [facility] 03-17-2024 11:51-0500 Body mass index (BMI) [Ratio] 27.97 kg/m2 Marciano Hi DPM Work Phone: [facility] 03-17-2024 11:51-0500 Body weight 96.16 kg Marciano Hi DPM Work Phone: [facility] 03-17-2024 11:51-0500 Respiratory rate 18 /min Marciano Hi DPM Work Phone: [facility] 01-28-2024 14:56-0500 Body height 185.4 cm Veronica Liz MD Work Phone: [facility] 01-28-2024 14:56-0500 Body mass index (BMI) [Ratio] 27.31 kg/m2 Veronica Liz MD Work Phone: [facility] 01-28-2024 14:56-0500 Body weight 93.89 kg Veronica Liz MD Work Phone: [facility] 01-28-2024 14:56-0500 Diastolic blood pressure 66 mm[Hg] Veronica Liz MD Work Phone: [facility] 01-28-2024 14:56-0500 Heart rate 55 /min Veronica Liz MD Work Phone: [facility] 01-28-2024 14:56-0500 Systolic blood pressure 118 mm[Hg] Veronica Liz MD Work Phone: [facility] 01-07-2024 13:51-0400 Body height 185.4 cm Marciano Hi DPM Work Phone: [facility] 01-07-2024 13:51-0400 Body mass index (BMI) [Ratio] 27.97 kg/m2 Marciano Hi DPM Work Phone: [facility] 01-07-2024 13:51-0400 Body weight 96.16 kg Marciano Hi DPM Work Phone: [facility] 01-07-2024 13:51-0400 Diastolic blood pressure 77 mm[Hg] Marciano iH DPM Work Phone: [facility] 01-07-2024 13:51-0400 Heart rate 81 /min Marciano Hi DPM Work Phone: [facility] 01-07-2024 13:51-0400 Systolic blood pressure 131 mm[Hg] Marciano Hi DPM Work Phone: [facility] 07-30-2023 15:50-0400 Diastolic blood pressure 82 mm[Hg] Veronica Liz MD Work Phone: [facility] 07-30-2023 15:50-0400 Systolic blood pressure 132 mm[Hg] Veronica Liz MD Work Phone: [facility] 07-30-2023 14:47-0400 Body height 185.4 cm Veronica Liz MD Work Phone: [facility] 07-30-2023 14:47-0400 Body mass index (BMI) [Ratio] 28.1 kg/m2 Veronica Liz MD Work Phone: [facility] 07-30-2023 14:47-0400 Body weight 96.62 kg Veronica Liz MD Work Phone: [facility] 07-30-2023 14:47-0400 Heart rate 96 /min Veronica Liz MD Work Phone: [facility] 01-29-2023 14:35-0500 Body height 185.4 cm Veronica Liz MD Work Phone: [facility] 01-29-2023 14:35-0500 Body mass index (BMI) [Ratio] 28.89 kg/m2 Veronica Liz MD Work Phone: [facility] 01-29-2023 14:35-0500 Body weight 99.34 kg Veronica Liz MD Work Phone: [facility] 01-29-2023 14:35-0500 Diastolic blood pressure 74 mm[Hg] Veronica Liz MD Work Phone: [facility] 01-29-2023 14:35-0500 Heart rate 62 /min Veronica Liz MD Work Phone: [facility] 01-29-2023 14:35-0500 Systolic blood pressure 132 mm[Hg] Veronica Liz MD Work Phone: [facility] 08-06-2022 13:15-0400 Body height 185.42 cm Valente P House Work Phone: [facility] [address] [place] Work Phone: 08-06-2022 13:15-0400 Body mass index (BMI) [Ratio] 28.23 kg/m2 Valente P House Work Phone: [facility] [address] [place] Work Phone: 08-06-2022 13:15-0400 Body surface area Derived from formula 2.21 m2 Valente P House Work Phone: [facility] [address] [place] Work Phone: 08-06-2022 13:15-0400 Body weight 97.07 kg Valente P House Work Phone: [facility] [address] [place] Work Phone: 08-06-2022 13:15-0400 Diastolic blood pressure 68 mm[Hg] Valente P House Work Phone: [facility] [address] [place] Work Phone: 08-06-2022 13:15-0400 Heart rate 57 /min Valente P House Work Phone: [facility] [address] [place] Work Phone: 08-06-2022 13:15-0400 Systolic blood pressure 132 mm[Hg] Valente P House Work Phone: [facility] [address] [place] Work Phone: 06-06-2022 09:22-0400 Body height 185.42 cm Valente P House Work Phone: [facility] [address] [place] Work Phone: 06-06-2022 09:22-0400 Body mass index (BMI) [Ratio] 27.84 kg/m2 Valente P House Work Phone: [facility] [address] [place] Work Phone: 06-06-2022 09:22-0400 Body surface area Derived from formula 2.2 m2 Valente P House Work Phone: [facility] [address] [place] Work Phone: 06-06-2022 09:22-0400 Body weight 95.71 kg Valente P House Work Phone: [facility] [address] [place] Work Phone: 06-06-2022 09:22-0400 Diastolic blood pressure 62 mm[Hg] Valente P House Work Phone: [facility] [address] [place] Work Phone: 06-06-2022 09:22-0400 Heart rate 80 /min Valente P House Work Phone: [facility] [address] [place] Work Phone: 06-06-2022 09:22-0400 Systolic blood pressure 134 mm[Hg] Valente P House Work Phone: [facility] [address] [place] Work Phone: 06-05-2022 13:14-0400 Body height 185.42 cm Valente P House Work Phone: [facility] [address] [place] Work Phone: 06-05-2022 13:14-0400 Body mass index (BMI) [Ratio] 27.84 kg/m2 Valente Ortega [employer] Work Phone: [facility] [address] [place] Work Phone: 06-05-2022 13:14-0400 Body surface area Derived from formula 2.2 m2 Valente Plurchase Work Phone: [facility] [address] DO Work Phone: 06-05-2022 13:14-0400 Body weight 95.71 kg Valente Ortega [employer] Work Phone: [facility] [address] [place] Work Phone: 06-05-2022 13:14-0400 Diastolic blood pressure 70 mm[Hg] Valente Ortega [employer] Work Phone: [facility] [address] DO Work Phone: 06-05-2022 13:14-0400 Heart rate 126 /min Valente Plurchase Work Phone: [facility] [address] DO Work Phone: 06-05-2022 13:14-0400 Systolic blood pressure 124 mm[Hg] Valente Plurchase Work Phone: [facility] [address] DO Work Phone: 12-04-2021 10:00-0400 Diastolic blood pressure 83 mm[Hg] Neal Velázquez MD Work Phone: [facility] [employer] 12-04-2021 10:00-0400 Heart rate 82 /min Neal Velázquez MD Work Phone: [employer] 12-04-2021 10:00-0400 Respiratory rate 18 /min Neal Velázquez MD Work Phone: [facility] [employer] 12-04-2021 10:00-0400 SaO2% (BldA) [Mass fraction] 95 % Nael Velázquez MD Work Phone: [facility] [employer] 12-04-2021 10:00-0400 Systolic blood pressure 130 mm[Hg] Neal Velázquez MD [facility] 12-04-2021 08:00-0400 Body temperature 97.9 [degF] Neal Velázquez MD Work Phone: [facility] 11-28-2021 03:30-0400 Body height 185.4 cm Neal Velázquez MD Work Phone: [facility] 11-28-2021 03:30-0400 Body mass index (BMI) [Ratio] 27.34 kg/m2 Neal Velázquez MD Work Phone: [facility] 11-28-2021 03:30-0400 Body weight 94 kg Neal Velázquez MD Work Phone: [facility] 11-27-2021 14:19-0400 Diastolic blood pressure 88 mm[Hg] Valente P [employer] Work Phone: [facility] [address] DO Work Phone: 11-27-2021 14:19-0400 Systolic blood pressure 139 mm[Hg] Valente P [employer] Work Phone: [facility] [address] DO Work Phone: 11-27-2021 13:40-0400 Body height 185.42 cm Valente P House Work Phone: [facility] [address] [place] Work Phone: 11-27-2021 13:40-0400 Body mass index (BMI) [Ratio] 28.63 kg/m2 Valente P House Work Phone: [facility] [address] [place] Work Phone: 11-27-2021 13:40-0400 Body surface area Derived from formula 2.23 m2 Valente P House Work Phone: [facility] [address] DO Work Phone: 11-27-2021 13:40-0400 Body weight 98.43 kg Valente P House Work Phone: [facility] [address] DO Work Phone: 11-27-2021 13:40-0400 Diastolic blood pressure 80 mm[Hg] Valente Ortega House Work Phone: [facility] [address] DO Work Phone: 11-27-2021 13:40-0400 Heart rate 61 /min Valente Ortega House Work Phone: [facility] [address] DO Work Phone: 11-27-2021 13:40-0400 Systolic blood pressure 174 mm[Hg] Valente Ortega House Work Phone: [facility] [address] DO Work Phone: 09-17-2021 12:15-0400 Body height 185.42 cm Saurabh Olexa Other Intent Other 09-17-2021 12:15-0400 Body mass index (BMI) [Ratio] 28.49 kg/m2 Saurabh Olexa Other [employer] Other 09-17-2021 12:15-0400 Body weight 97.98 kg Saurabh Olexa Other [employer] Other 08-29-2021 10:30-0400 Body height 185.42 cm Saurabh Olexa Other [employer] Other 08-29-2021 10:30-0400 Body mass index (BMI) [Ratio] 28.49 kg/m2 Saurabh Olexa Other [employer] Other 08-29-2021 10:30-0400 Body weight 97.98 kg Saurabh Olexa Other [employer] Other 05-22-2021 13:17-0500 Body height 185.42 cm Valente P House Work Phone: [facility] [address] DO Work Phone: 05-22-2021 13:17-0500 Body mass index (BMI) [Ratio] 29.95 kg/m2 Valente P House Work Phone: [facility] [address] DO Work Phone: 05-22-2021 13:17-0500 Body surface area Derived from formula 2.27 m2 Valente P House Work Phone: [facility] [address] DO Work Phone: 05-22-2021 13:17-0500 Body weight 102.97 kg Valente P House Work Phone: [facility] [address] DO Work Phone: 05-22-2021 13:17-0500 Diastolic blood pressure 74 mm[Hg] Valente P House Work Phone: [facility] [address] DO Work Phone: 05-22-2021 13:17-0500 Heart rate 60 /min Valente P House Work Phone: [facility] [address] DO Work Phone: 05-22-2021 13:17-0500 Systolic blood pressure 137 mm[Hg] Valente P House Work Phone: [facility] [address] DO Work Phone: Encounters Encounter Date Encounter Type Care Provider Facility Start: 11-23-2024 End: 11-23-2024 Professional / ancillary services management Kristin Mcmanus LPN [facility] Comment on above: High risk medication use; Persistent atrial fibrillation (Multi) Start: 11-23-2024 End: 11-23-2024 ambulatory [facility] Start: 11-09-2024 End: 11-09-2024 Professional / ancillary services management Clyde Yoo MA [facility] Comment on above: Persistent atrial fi brillation (Multi) (Primary Dx); High risk medication use Start: 11-09-2024 End: 11-09-2024 ambulatory [facility] Start: 11-03-2024 End: 11-03-2024 Office outpatient visit 10 minutes Marciano Hi DPM Work Phone: [facility] Comment on above: Xerosis cutis (Prima ry Dx); Diabetes 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, unspecified whether snf insulin use (HCC); Pain due to onychomycosis of toenails of both feet; Right foot drop Start: 11-03-2024 End: 11-03-2024 Bamboo flowsheet Marciano Hi DPM Work Phone: [facility] Start: 11-03-2024 End: 11-03-2024 Bamboo flowsheet Marciano Hi DPM Work Phone: [facility] Start: 11-03-2024 End: 11-03-2024 ambulatory MARCIANO HI Not Available Start: 10-26-2024 End: 10-26-2024 Office outpatient visit 25 minutes Veronica Liz MD Work Phone: [facility] Comment on above: Persistent atrial fi brillation (Multi) (Primary Dx); Single vessel coronary disease; High risk medication use; Stenosis of right carotid artery; Mixed hyperlipidemia; Essential hypertension; Anemia, unspecified type; Cerebrovascular accident (CVA), unspecified mechanism (Multi); Former smoker; BMI 24.0-24.9, adult; Prolonged QT interval Start: 10-26-2024 End: 10-26-2024 ambulatory [facility] Start: 08-11-2024 End: 08-11-2024 ambulatory MARCIANO HI Not Available Start: 05-26-2024 End: 05-26-2024 Bamboo flowsheet Marciano Hi DPM Work Phone: [facility] Start: 05-26-2024 End: 05-26-2024 Bamboo flowsheet Marciano Hi DPM Work Phone: [facility] Start: 05-26-2024 End: 05-26-2024 Office outpatient visit 15 minutes Marciano Hi DPM Work Phone: [facility] Comment on above: Xerosis cutis (Prima ry Dx); Diabetes 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, 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); Pain due to onychomycosis of toenails of both feet; Right foot drop Start: 05-26-2024 End: 05-26-2024 ambulatory MARCIANO HI Not Available Start: 04-20-2024 End: 04-20-2024 Office outpatient visit 40 minutes Veronica Liz MD Work Phone: [facility] Comment on above: TIA (transient ische alexandra attack) (Primary Dx); Single vessel coronary disease; High risk medication use; Stenosis of right carotid artery; Persistent atrial fibrillation (Multi); Mixed hyperlipidemia; Essential hypertension; Cerebrovascular accident (CVA), unspecified mechanism (Multi); Former smoker; BMI 26.0-26.9,adult Start: 04-20-2024 End: 04-20-2024 ambulatory [facility] Start: 03-17-2024 End: 03-17-2024 Bamboo [employer] Marciano Hi DPM Work Phone: [facility] Start: 03-17-2024 End: 03-17-2024 Bamboo flowsheet Marciano Hi DPM Work Phone: [facility] Start: 03-17-2024 End: 03-17-2024 Office outpatient visit 10 minutes Marciano Hi DPM Work Phone: [facility] Comment on above: Xerosis cutis (Prima ry Dx); Diabetes 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, unspecified whether snf insulin use (CMS/HCC); Pain due to onychomycosis of toenails of both feet; Right foot drop Start: 03-17-2024 End: 03-17-2024 ambulatory MARCIANO HI Not Available Start: 01-28-2024 End: 01-28-2024 Office outpatient visit 25 minutes Veronica Liz MD Work Phone: [facility] Comment on above: Persistent atrial fi brillation (Multi) (Primary Dx); Single vessel coronary disease; Mixed hyperlipidemia; Essential hypertension; Anemia, unspecified type; Cerebrovascular accident (CVA), unspecified mechanism (Multi); High risk medication use; Former smoker; BMI 27.0-27.9,adult Start: 01-28-2024 End: 01-28-2024 ambulatory [facility] Start: 01-07-2024 End: 01-07-2024 Bamboo flowsheet Marciano Hi DPM Work Phone: [facility] Start: 01-07-2024 End: 01-07-2024 Bamboo flowsheet Marciano Hi DPM Work Phone: [facility] Start: 01-07-2024 End: 01-07-2024 Office outpatient visit 15 minutes Marciano Hi DPM Work Phone: [facility] Comment on above: Xerosis cutis (Prima ry Dx); Onychomycosis; Pain due to onychomycosis of toenails of both feet; Right foot drop Start: 01-07-2024 End: 01-07-2024 ambulatory MARCIANO HI Not Available Start: 07-30-2023 End: 07-30-2023 Office outpatient visit 25 minutes Veronica Liz MD Work Phone: [facility] Comment on above: High risk medication use (Primary Dx); Single vessel coronary disease; Essential hypertension; Mixed hyperlipidemia; Persistent atrial fibrillation (Multi); BMI 28.0-28.9,adult; Cerebrovascular accident (CVA), unspecified mechanism (Multi); Anemia, unspecified type; Former smoker Start: 01-29-2023 End: 01-29-2023 Office outpatient visit 25 minutes Veronica Liz MD Work Phone: [facility] Comment on above: Single vessel carvalho ry disease (Primary Dx); Essential hypertension; Mixed hyperlipidemia; Persistent atrial fibrillation (CMS/HCC); Anemia, unspecified type; BMI 28.0-28.9,adult Start: 08-25-2022 Rx Renewal Valente P Hous e Work Phone: [facility] [address] [place] Work Phone: Start: 08-06-2022 ambulatory Veronica Fisher lity: Start: 07-03-2022 Rx Renewal Valente P Hous e Work Phone: [facility] [address] DO Work Phone: Start: 06-06-2022 FUV, Provider: Veronica Liz, Status: Pen, Time: 9:40 AM Valente Martinez Work Phone: [facility] [address] DO Work Phone: Start: 06-06-2022 Office outpatient vi sit 10 minutes Valente Martinez Work Phone: [facility] 250 DO Work Phone: Start: 06-06-2022 ambulatory Veronica Fisher lity: Start: 06-05-2022 Office outpatient vi sit 40 minutes Valente Martinez Work Phone: [facility] [address] DO Work Phone: Start: 06-05-2022 ambulatory Veronica Fisher lity: Start: 05-14-2022 End: 05-15-[address] VALENTE MARTINEZ Facility:[facility]1 Start: 04-20-2022 End: 04-21-[address] VALENTE MARTINEZ Facility:[facility] Start: 02-17-2022 Rx Renewal Valente P Blade e Work Phone: [facility] [address] DO Work Phone: Start: 12-20-2021 End: 12-21-[address] VALENTE MARTINEZ Facility:[facility]1 Start: 12-05-2021 End: 12-06-[address] VALENTE MARTINEZ Facility:[facility]1 Start: 11-28-2021 End: 12-04-2021 Evaluation and management of inpatient [facility] Start: 11-28-2021 End: 12-04-2021 Evaluation and management of inpatient Neal Velázquez MD Work Phone: [facility] Comment on above: Cerebrovascular acci dent (CVA), unspecified mechanism (HCC) (Primary Dx); Hyponatremia Start: 11-28-2021 End: 11-28-[address] BENITA PATTERSON . Facility:[facility]1 Start: 11-27-2021 Office outpatient vi sit 25 minutes Valente Martinez Work Phone: [facility] [address] DO Work Phone: Start: 11-27-2021 ambulatory Petartoancami Shalonda Faci lity: Start: 11-18-2021 Rx Renewal Valente saul Work Phone: [facility] 250 DO Work Phone: Start: 09-23-2021 ambulatory Jeevan Espinoza Facility :[id number] Start: 09-22-2021 End: 09-23-2021 ambulatory Jeevan Ryanahim Facility:[facility] Start: 09-22-2021 End: 09-23-[address] ANN MANLEY Facility:[facility]1 Start: 09-17-2021 End: 09-17-2021 ambulatory Saurabh Olexa Other Intent Other Start: 09-17-2021 Postop follow up vis it related to original px Saurabh Brothersxa [facility] [facility] Start: 08-29-2021 End: 08-29-2021 ambulatory Saurabh Olexa Other [employer] Other Start: 08-29-2021 FQHC visit new patient Saurabh Olexa [facility] Start: 08-26-2021 End: 08-26-[address] VALENTE MARTINEZ Facility:[facility]1 Start: 08-22-2021 End: 08-22-[address] VALENTE MARTINEZ Facility:[facility]1 Start: 05-22-2021 Office outpatient vi sit 25 minutes Valente Martinez Work Phone: [facility] [address] DO Work Phone: Start: 06-10-2018 Patient encounter procedure VERONICA LIZ Facility:[id number] Procedures Date Procedure Procedure Detail Performing Clinician Start: 11-23-2024 Ecg routine ecg w/le ast 12 lds w/i&r Veronica Liz MD Work Phone: Start: 10-26-2024 Ecg routine ecg w/le ast 12 lds w/i&r Veroniac Liz MD Work Phone: Start: 04-20-2024 Ecg routine ecg w/le ast 12 lds w/i&r Veronica Liz MD Work Phone: Start: 01-28-2024 Ecg routine ecg w/le ast 12 lds w/i&r Veronica Liz MD Work Phone: Start: 07-30-2023 Ecg routine ecg w/le ast 12 lds w/i&r Veronica Liz MD Work Phone: Start: 01-29-2023 Ecg routine ecg w/le ast 12 lds w/i&r Veronica Liz MD Work Phone: Start: 12-04-2021 Glucose blood reagent strip Allan Chirri DO Work Phone: Start: 12-04-2021 Basic metabolic pane l calcium total Adina Hi TAB MACHINE [employer]PERATOR [employer] Work Phone: Start: 12-03-2021 Glucose blood reagent strip Allan Chirri DO Work Phone: Start: 12-03-2021 End: 12-03-2021 Assay of osmolality urine Dany hubbard DO Work Phone: Start: 12-03-2021 Glucose blood reagent strip Allan Chirri DO Work Phone: Start: 12-03-2021 Basic metabolic pane l calcium total Adina Do TAB MACHINE OPERATOR - [employer] Work Phone: Start: 12-02-2021 Glucose blood reagent [...] metabolic pane l calcium total Amanda Garcia TAB MACHINE OPERATOR - [employer] Work Phone: Start: 11-30-2021 Glucose blood reagent strip Allan Chirri DO Work Phone: Start: 11-30-2021 Echo tthrc r-t 2d w/wom-mode compl spec&colr d Yolie Cabrera MD Work Phone: Start: 11-30-2021 Glucose blood reagent strip Allan Chirri DO Work Phone: Start: 11-30-2021 End: 11-30-2021 Basic metabolic panel calcium total Amanda Garcia TAB MACHINE OPERATOR - [employer] Work Phone: Start: 11-29-2021 Glucose blood reagent strip Allan Chirri DO Work Phone: Start: 11-29-2021 Glucose blood reagent strip Neal Velázquez MD Work Phone: Start: 11-29-2021 Ecg routine ecg w/le ast 12 lds i&r only Marilu Atkins TAB MACHINE OPERATOR - [employer] Work Phone: Start: 11-29-2021 Glucose blood reagent strip Neal Velázquez MD Work Phone: Start: 11-29-2021 Assay of magnesium Neal Velázquez MD Work Phone: Start: 11-29-2021 Ct head/brain w/o co ntrast material Isidro Mehta MD Work Phone: Start: 11-29-2021 Glucose blood reagent strip Neal Velázquez MD Work Phone: Start: 11-29-2021 Basic metabolic pane l calcium total Amanda Garcia TAB MACHINE OPERATOR - [employer] Work Phone: Start: 11-29-2021 Glucose blood reagent [...] Treatment Date Care Activity Detail Author Start: 06-08-2025 End: 06-08-2025 Patient encounter procedure 06/08/2025 3:00 PM EDT Office Visit [facility] [address] [facility] [address] [place] [address] Veronica Liz MD [address] [facility], [place] [address] [place] [address] [facility] Start: 01-26-2025 End: 01-26-2025 Patient encounter procedure 01/26/2025 1:50 PM EST Procedure Visit [facility] [address] [place] [address] [place] [address] Marciano Hi DPM [address] [facility] 5 [place] [address] [facility] Start: 11-23-2024 End: 11-09-2025 ECG 12 Lead ECG 12 Lead ECG Routine High risk medication use Persistent atrial fibrillation (Multi) Expected: 11/23/2024 (Approximate), Expires: 11/09/2025 [facility] Service Area Work Phone: Comment on above: Expected: 11/23/2024 (Approximate), Expires: 11/09/2025 Start: 11-23-2024 End: 11-23-2024 Professional / ancillary services management 11/23/2024 2:00 PM EDT Ancillary Procedure [address] [address] [facility] Start: 11-21-2024 COVID-19 Vaccine ( season) COVID-19 Vaccine ( season) [facility] Start: 11-21-2024 Influenza vaccination Influenza Vacc ine (#1) [facility] Start: 11-09-2024 End: 10-26-2025 ECG 12 Lead [facility] Service Area Work Phone: Comment on above: Expected: 11/09/2024 (Approximate), Expires: 10/26/2025 Start: 11-09-2024 End: 11-09-2024 Professional / ancillary services management 11/09/2024 2:00 PM EDT Ancillary Procedure [address] [address] [facility] Start: 11-03-2024 End: 11-03-2024 Patient encounter procedure 11/03/2024 2:40 PM EDT Procedure Visit [facility] [address] [place] [address] [place] [address] Marciano Hi DPM [address] [address] Diabetes 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, 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 (HCC) (Primary Dx); Pain due to onychomycosis of toenails of both feet; Right foot drop; Xerosis cutis [facility] Comment on above: Diabetes mellitus du e to underlying condition with diabetic polyneuropathy, 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 (HCC) (Primary Dx); Pain due to onychomycosis of toenails of both feet; Right foot drop; Xerosis cutis Start: 10-26-2024 End: 10-26-2024 Patient encounter procedure 10/26/2024 2:30 PM EDT Office Visit [address] [address] Veronica Liz MD [address] [facility], [facility] 250 [place] [address] [facility] Start: 08-11-2024 End: 08-11-2024 Patient encounter procedure 08/11/2024 2:10 PM EDT Procedure Visit [facility] [address] [facility] [address] [place] [address] Marciano Hi DPM [address] [address] [facility] Start: 08-03-2024 End: 08-03-2024 Patient encounter procedure 08/03/2024 3:30 PM EDT Office Visit [address] [address] Veronica Liz MD [address] [facility], [facility] 250 [place] [address] [facility] Start: 05-26-2024 End: 05-26-2024 Patient encounter procedure [facility] Comment on above: Diabetes mellitus du e to underlying condition with diabetic polyneuropathy, unspecified whether snf insulin use (CMS/HCC) (Primary Dx); Pain due to onychomycosis of toenails of both feet; Right foot drop; Xerosis cutis Start: 03-17-2024 End: 03-17-2024 Patient encounter procedure 03/17/2024 1:50 PM EST Procedure Visit [facility] [address] [facility] [address] [place] [address] Marciano Hi DPM [address] [facility] 5 [place] [address] [facility] Start: 03-17-2024 End: 03-17-2024 Patient encounter procedure 03/17/2024 11:50 AM EST Procedure Visit [facility] [facility] [address] [facility] [address] [place] [address] Marciano Hi DPM [address] [address] Diabetes 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, unspecified whether snf insulin use (CMS/HCC) (Primary Dx); Pain due to onychomycosis of toenails of both feet; Right foot drop; Xerosis cutis [facility] Comment on above: Diabetes mellitus du e to underlying condition with diabetic polyneuropathy, 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) (Primary Dx); Pain due to onychomycosis of toenails of both feet; Right foot drop; Xerosis cutis Start: 01-28-2024 End: 01-28-2024 Patient encounter procedure 01/28/2024 3:10 PM EST Office Visit [facility] 703 [facility] [address] [place] [id number] Veronica Liz MD 703 [facility], [place] [address] [place] [address] [facility] Start: 01-07-2024 End: 01-07-2024 Patient encounter procedure 01/07/2024 2:00 PM EDT Procedure Visit [facility] [address] [facility] [address] [place] [id number] Marciano Hi, VILMA 3006 [facility] [address] [place] [address] Onychomycosis (Primary Dx); Pain due to onychomycosis of toenails of both feet; Right foot drop; Xerosis cutis [facility] Comment on above: Onychomycosis (Prima ry Dx); Pain due to onychomycosis of toenails of both feet; Right foot drop; Xerosis cutis Start: 11-22-2023 COVID-19 Vaccine () COVID-19 Vaccine () [facility] Start: 11-22-2023 Influenza vaccination [facility] Start: 07-30-2023 End: 07-30-2023 Patient encounter procedure 07/30/2023 3:00 PM EDT Office Visit [facility] 7[address] [facility] [address] [place] [address] Veronica Liz MD 703 [facility] 2, [facility] [address] [place] [address] [facility] Start: 01-29-2023 FUV, Provider: Veronica Liz, Status: Pen, Time: 3:10 PM FUV, Provider: Veronica Liz, Status: Pen, Time: 3:10 PM [facility] [address] [place] Work Phone: Start: 11-28-2022 Diabetes mellitus screening Diabetes Screening [facility] Start: 11-28-2022 Hemoglobin A1c measurement A1C test (Diabetic or Prediabetic) [facility] Start: 11-28-2022 Lipid panel Lipids [facility] Start: 11-21-2022 COVID-19 Vaccine ( season) COVID-19 Vaccine () [facility] Start: 11-21-2022 Influenza vaccination Influenza Vacc ine (#1) [facility] Start: 08-06-2022 FUV, Provider: Veronica Liz, Status: Pen, Time: 1:30 PM FUV, Provider: Veronica Liz, Status: Pen, Time: 1:30 PM [facility] 250 DO Work Phone: Start: 06-05-2022 FUV, Provider: Veronica Liz, Status: Pen, Time: 1:20 PM FUV, Provider: Veronica Liz, Status: Pen, Time: 1:20 PM [facility] 250 DO Work Phone: Start: 02-27-2022 Hemoglobin A1c measurement Diabetes: Hemoglobin A1C [facility] Start: 01-27-2022 End: 01-27-2022 Patient encounter procedure 01/27/2022 Office Visit Neurology AntoniJasmin MD [address] [place] [address] [facility] Start: 12-31-2021 NURSEVST, Provider: SURJIT TIR[employer] TECH 1,[id number], Status: Pen, Time: 1:30 PM NURSEVST, Provider: SURJIT TIRADO SERVICES TECH 1,[id number], Status: Pen, Time: 1:30 PM [facility] 250 DO Work Phone: Start: 12-19-2021 End: 11-30-2022 CT HEAD WO CONTRAST CT HEAD WO CONTRAST Imaging Routine Cerebrovascular accident (CVA), unspecified mechanism (HCC) Expected: 12/19/2021, Expires: 11/30/2022 MIRA AMEZCUA [facility] Work Phone: Comment on above: Expected: 12/19/2021 , Expires: 11/30/2022 Start: 12-10-2021 End: 01-02-2022 Basic metabolic 2000 panel - Serum or Plasma Basic Metabolic Panel Lab Routine Hyponatremia Expected: 12/10/2021, Expires: 01/02/2022 [facility] [facility] Work Phone: Comment on above: Expected: 12/10/2021 , Expires: 01/02/2022 Start: 11-27-2021 FUV, Provider: Veronica Liz, Status: Pen, Time: 1:30 PM FUV, Provider: Veronica Liz, Status: Pen, Time: 1:30 PM [facility] 250 DO Work Phone: Start: 11-21-2021 Influenza vaccination Flu vaccine (# 1) [facility] Start: 2021 RSV High Risk: (Elde rly (60+) or Population) (1 - 1-dose 75+ series) RSV High Risk: (Elderly (60+) or Population) (1 - 1-dose 75+ series) [facility] Start: 05-18-2021 COVID-19 Vaccine (4 - Booster for Pfizer series) COVID-19 Vaccine (4 - Booster for Pfizer series) [facility] Start: 03-12-2021 COVID-19 Vaccine (4 - Pfizer series) COVID-19 Vaccine (4 - Pfizer series) [facility] Start: 10-24-2011 Abdominal aortic aneurysm screening AAA screen [facility] Start: 2006 RSV patient s and/or patients aged 60+ years (1 - 1-dose 60+ series) RSV patients and/or patients aged 60+ years (1 - 1-dose 60+ series) [facility] Start: 1996 Shingles vaccine (1 of 2) Shingles vaccine (1 of 2) [facility] Start: 1996 Zoster Vaccines (1 o f 2) Zoster Vaccines (1 of 2) [facility] Start: 10-24-1991 Screening for malign ant neoplasm of colon [facility] Start: 1968 DTaP/Tdap/Td Vaccine s (1 - Tdap) DTaP/Tdap/Td Vaccines (1 - Tdap) [facility] Start: 1965 DTaP/Tdap/Td vaccine (1 - Tdap) DTaP/Tdap/Td vaccine (1 - Tdap) [facility] Start: 1965 Pneumococcal vaccination Pneumococcal Vaccine (1 of 2 - PCV) [facility] Start: 1965 Pneumococcal Vaccine : 65+ Years (1 of 2 - PCV) Pneumococcal Vaccine: 65+ Years (1 of 2 - PCV) [facility] Start: 1965 Urine screening for protein Diabetes: Urine Protein Screening [facility] Start: 1964 Diabetic retinal exam Diabetic retin al exam [facility] Start: 1964 Hepatitis C screening B ON [facility] Start: 1958 Depression Screen Depression Screen [facility] Start: 1956 Diabetic foot examination Diabetic foot exam [facility] Start: 1956 Glaucoma screening Diabetes: R etinopathy Screening [facility] Start: 1952 Pneumococcal 65+ yea rs Vaccine (1 - PCV) Pneumococcal 65+ years Vaccine (1 - PCV) [facility] Start: 1952 Pneumococcal Vaccine : 65+ Years (1 - PCV) Pneumococcal Vaccine: 65+ Years (1 - PCV) [facility] Start: 1952 Pneumococcal Vaccine : 65+ Years (1 of 2 - PCV) Pneumococcal Vaccine: 65+ Years (1 of 2 - PCV) [facility] Start: 1946 Annual Wellness Visi t (AWV) Annual Wellness Visit (AWV) [facility] Start: 1946 Lipid panel Lipid Panel [facility] Start: 1946 Medicare Annual Wellness (AWV) Medicare Annual Wellness (AWV) [facility] Start: 1946 Medicare Annual Wellness Visit Medicare Annual Wellness Visit (AWV) [facility] End: 12-05-2021 Basic metabolic 2000 panel - Serum or Plasma Basic Metabolic Panel Lab Routine Daily for 3 Days starting 12/03/2021 until 12/05/2021, 2 completed [employer] Phone: Comment on above: Daily for 3 Days sta rting 12/03/2021 until 12/05/2021, 2 completed End: 12-05-2021 CBC W Auto Differential panel - Blood CBC with Auto Differential Lab Routine Daily for 3 Days starting 12/03/2021 until 12/05/2021, 2 completed [employer] Phone: Comment on above: Daily for 3 Days sta rting 12/03/2021 until 12/05/2021, 2 completed Continuous pulse oximetry Pulse oximetry, continuous Respiratory Care Routine Every 4hr until discontinued starting 11/28/2021 [employer] Phone: Comment on above: Every 4hr until disc ontinued starting 11/28/2021 Glucose [Mass/volume ] in Serum or Plasma [employer] Phone: Comment on above: 4X Daily (AC & HS) u ntil discontinued starting 11/28/2021 As Needed until disc ontinued starting 11/28/2021 Oxygen therapy [[facility] Data Set] Initiate Oxygen Therapy Protocol Respiratory Care Routine As Needed until discontinued starting 11/28/2021 [employer] Phone: Comment on above: As Needed until disc ontinued starting 11/28/2021 End: 11-28-2021 TEAR DOWN WORKER clinical swallow evaluation TEAR DOWN WORKER clinical swallow evaluation TEAR DOWN WORKER Routine One Time for 1 Occurrences starting 11/28/2021 until 11/28/2021 [employer] Phone: Comment on above: One Time for 1 Occur rences starting 11/28/2021 until 11/28/2021 End: 11-28-2021 Speech and language therapy regime Speech Language Pathology (TEAR DOWN WORKER) eval and treat TEAR DOWN WORKER Routine One Time for 1 Occurrences starting 11/28/2021 until 11/28/2021 [employer] Phone: Comment on above: One Time for 1 Occur rences starting 11/28/2021 until 11/28/2021 Immunizations Immunization Date Immunization Notes Care Provider Zoya amezquita 01-15-2021 Pfizer-BioNTech COVID-19 Vacc 30 MCG/0.3ML Intramuscular Suspension [facility] Work Phone: [facility] Comment on above: Series: 06-12-2020 Pfizer-BioNTech COVID-19 Vacc 30 MCG/0.3ML Intramuscular Suspension [facility] Work Phone: [facility] 05-21-2020 Pfizer-BioNTech COVID-19 Vacc 30 MCG/0.3ML Intramuscular Suspension [facility] Work Phone: [facility] Comment on above: Series: 03-23-2017 influenza virus vaccine, unspecified formulation [facility] Work Phone: -[facility] 250 DO Work Phone: Payers Date Payer Category Payer Self-pay [id number] 2011 Medicare [id number] 1959 Medicare [id number] 1946 Unknown [id number] 2.16.8 40.1.916890.3.579.2.355 1946 Unknown [id number] 2.16. 840.1.548296.3.579.2.175 1946 Unknown [id number] 2.16.84 0.1.350786.3.579.2.593 1946 Unknown [id number] 2.16.84 0.1.240567.3.579.2.593 1946 Unknown [id number] 2.16.84 0.1.864370.3.579.2.593 1946 Unknown [id number] 2.16.84 0.1.217077.3.579.2.593 1946 Unknown [id number] 2.16.84 0.1.308245.3.579.2.593 1946 Unknown [id number] 2.16.84 0.1.704810.3.579.2.593 1946 Unknown [id number] 2.16.84 0.1.852642.3.579.2.593 1946 Unknown [id number] 2.16.84 0.1.878755.3.579.2.593 1946 Unknown [id number] 2.16. 840.1.075594.3.579.2.356 1946 Unknown [id number] 2.16. 840.1.160171.3.579.2.356 1946 Unknown [id number] 2.16. 840.1.147174.3.579.2.356 1946 Unknown [id number] 2.16. 840.1.811853.3.579.2.356 1946 Unknown [id number] 2.16. 840.1.650858.3.579.2.356 1946 Unknown [id number] 2.16.8 40.1.757546.3.579.2.1259 1946 Unknown [id number] 2.16.84 0.1.566667.3.579.2.1259 1946 Unknown [id number] 2.16.84 0.1.900624.3.579.2.1259 1946 Unknown [id number] 2.16.84 0.1.873722.3.579.2.1259 1946 Unknown [id number] 2.16.84 0.1.042725.3.579.2.1259 1946 Unknown [id number] 2.16.840.1.114173.3.579.2.1244 1946 Unknown [id number] 2.16.840.1.811587.3.579.2.1244 1946 Unknown [id number] 2.16.840.1.304853.3.579.2.1244 1946 Unknown [id number] 2.16.840.1.923086.3.579.2.1244 1946 Unknown [id number] 2.16.840.1.528463.3.579.2.1244 Unknown Unknown HCAP/HFA/FAP Active [id number] Unknown [id number] 2.16.8 40.1.224514.3.579.2.531 Social History Date Type Detail Facility Start: 01-29-2023 End: 11-09-2024 No illicit drug use No illicit drug use -[facility] 250 DO Work Phone: Comment on above: 1 BEER OCCASIONALLY; 2 CUPS OF COFFEE ELVIN LY; QUIT MAR 2019; Start: 01-29-2023 End: 11-09-2024 Sex Assigned At [facility] [employer] Other Start: 12-02-2021 End: 07-30-2023 Tobacco smoking status [facility] Ex-smoker [employer] Phone: End: 03-23-2018 History of tobacco use Current smoker [employer] Phone: End: 03-23-2018 History of tobacco use Cigarette Smoker [employer] Phone: Start: 12-02-2021 End: 11-09-2024 Alcohol intake Current drinker of alcohol (finding) [employer] Phone: Start: 11-28-2021 History SDOH Alcohol Frequency 2 [employer] Phone: Start: 11-28-2021 History SDOH Alcohol Std Drinks 3 [employer] Phone: Start: 12-02-2021 History SDOH Alcohol Comment occ beer [employer] Phone: Start: 1945 Sex Assigned At Not on file [employer] Phone: Start: 11-18-2021 End: 04-20-2024 Exposure to SARS-CoV-2 (event) Not sure [employer] Phone: Start: 1945 Sex Assigned At Male [facility] Start: 01-29-2023 End: 07-30-2023 Tobacco use and exposure Smokeless tobacco non-user [facility] Work Phone: Start: 01-29-2023 Alcohol Comment occasionally [facility] Work Phone: Start: 06-04-2023 Tobacco smoking status NHIS Tobacco smoking consumption unknown [facility] Start: 06-04-2023 Alcohol Comment coffee daily [facility] Start: 02-15-2022 Sex Male [facility] NEGATED: Highlighted rowStart: NINF History of tobacco use Passive smoker [facility] Medical Equipment Procedure Code Equipment Code Equipment Origin al Text Equipment Identifier Dates Capsule endoscopy, for patency of lumen evaluation Video capsule endoscopy system [id number] [facility] Start: 10-20-2019 Femoral artery closure plug/patch, synthetic polymer [id number] [facility] Start: 03-31-2019 Clinical Notes 08-26-2021 to 11-23-2024 Kristin Mcmanus LPN - 11/23/2024 2:00 PM Veda Yoo MA - 11/09/2024 2:00 PM Katie Liz MD - 10/26/2024 2:30 PM EDTPatient InstructionsPatient InstructionsAttachments Note Date & Type Note Facility 11-23-2024 History of Present illness Narrative Patient here for an EKG visit ordered by Dr. Liz due to diagnosis of Persistent atrial fibrillation. Dr. Liz in suite to review EKG prior to discharge. Patient here due to recent medication changes made on 11/09/24 . Medication list Updated verbally. No cardiac complaints. To Dr. Liz to read Vitals: 11/23/24 1638 BP: 102/58 BP Location: Left arm Patient Position: Sitting Pulse: 64 Weight: 82.6 kg (182 lb) Height: 1.854 m (6' 1 ) documented in this encounter [facility] Work Phone: 11-09-2024 History of Present illness Narrative Patient is here for EKG visit ordered by Dr. Liz due to atrial fibrillation. Dr. Jeevan Espinoza MD is in suite to review EKG prior to discharge. Patient is here due to medication change at last OV. Sotalol was decreased to 40mg TID due to prolonged QT. Medication list was Updated with bottles with patient in office. Patient does express some confusion regarding Sotalol dose. States that he has been taking 40 BID at home prior to this change in medication. Verified with dispensing pharmacy, patient in fact has been receiving 80mg BID as we have recorded in patient chart. Per MT, patient to reduce Sotalol from 40mg TID to 40mg BID. Attempted to explain to patient. Becomes agitated stating he did not want to return. Does schedule and will return for 2 week EKG per MT. Denies any cardiac complaints at this time. To Dr. Liz to read. Vitals: 11/09/24 1425 BP: 132/68 BP Location: Left arm Patient Position: Sitting Pulse: 61 Weight: 84.1 kg (185 lb 6.4 oz) Height: 1.854 m (6' 1 ) EKG done in office today documented in this encounter [facility] Work Phone: 10-26-2024 History of Present illness Narrative Chief Complaint Patient presents with Follow-up 6 months Persistent atrial fibrillation (Multi Subjective Shahrzad Edgar is a 79 y.o. male HPI Patient here for follow-up to management for history of atrial fibrillation, history of TIA, previous PCI, hypertension hyperlipidemia. Since last time I saw him he denies any current complaint of chest pain, palpitation, lightheadedness, dizziness or syncope. He refused anticoagulation and Watchman device. He reports lab work was done through his PCP but results is not available to me. He is known to have normal renal function today's EKG showed prolongation of QTc interval Assessment 1. Atrial fibrillation controlled in sinus rhythm on sotalol but QTc interval is prolonged 2. Status post prior presentation with inferior wall myocardial infarction. Status post thrombectomy and balloon angioplasty to a small PLV branch. back in 2019. Patient describe functional class I. No recurrence of his symptoms 3. History of TIA refused anticoagulation including DOACs or Coumadin and refused Watchman device 4. High-risk medication in form of sotalol QTc interval is slightly prolonged 5. Mildly overweight with BMI of 26 6. Hypertension controlled on lisinopril 7. Hyperlipidemia controlled no recent lab available 8. Anemia was seen by hematology in [...] dietary modification 3. I advised him to reduce his sotalol to 40 mg 3 times daily and to do an EKG in 2 weeks 4. I recommended to continue present medical regimen. As per patient choice 5. Risk of embolic event discussed with patient and at length he understood he only consent to aspirin therapy 6. I will see him back in 6 months Review of Systems All other systems reviewed and are negative. Vitals: 10/26/24 1428 BP: 134/60 BP Location: Right arm Patient Position: Sitting Pulse: 62 Weight: 83.5 kg (184 lb) Height: 1.854 m (6' 1 ) Objective Physical Exam Constitutional: Appearance: Normal appearance. [...] Allergies Coconut oil Current Medications Current Outpatient Medications Medication Instructions aspirin 81 mg EC tablet 1 tablet, Daily atorvastatin (LIPITOR) 80 mg, oral, Daily lisinopril 10 mg, Daily nitroglycerin (NITROSTAT) 0.4 mg sotalol (BETAPACE) 40 mg, oral, 3 times daily Assessment/Plan 1. Persistent atrial fibrillation (Multi) sotalol (Betapace) 80 mg tablet ECG 12 Lead ECG 12 Lead 2. Single vessel coronary disease Follow Up In Cardiology Follow Up In Cardiology 3. High risk medication use ECG 12 Lead ECG 12 Lead 4. Stenosis of right carotid artery 5. Mixed hyperlipidemia 6. Essential hypertension 7. Anemia, unspecified type 8. Cerebrovascular accident (CVA), unspecified mechanism (Multi) 9. Former smoker 10. BMI 24.0-24.9, adult 11. Prolonged QT interval Scribe Attestation By signing my name below, Evelina Hsu RN , Scribe attest that this documentation has [...] discussion and plan. documented in this encounter [facility] Work Phone: 10-26-2024 Instructions Evelina Yoder RN - 10/26/2024 2:30 PM EDT Please bring all medicines, vitamins, and herbal supplements with you when you come to the office. Prescriptions will not be filled unless you are compliant with your follow up appointments or have a follow up appointment scheduled as per instruction of your physician. Refills should be requested at the time of your visit. Sotalol 40 mg three times a day documented in this encounter [facility] Work Phone: 05-26-2024 History of Present illness Narrative Patient: [...] has periodically been using prescribed or recommended nxbn-ygc-vhsnokf cream with negative improvement. Patient also states he had cold exposure for many years to his feet Patient has history of right foot drop secondary to spinal surgery in the past and refused AFO rx in the past. Allergies: No Known Allergies Past Medical History: Past Medical History: Diagnosis Date Diabetes ([facility]) Medications: Current Outpatient Medications: aspirin 81 MG [...] and negative PT pedal pulses NEURO: 5.07 [place] Nacho monofilament test diminished to digits and forefoot bilaterally 125Hz tuning fork diminished to 1st MPJ bilaterally ORTHO: Positive pain on palpation to toenails of the left 1,2,3,4,5 toes and right 1,2,3,4,5 toes +4/5dorsiflexion right ankle ASSESSMENT 1. Diabetes 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, unspecified whether snf insulin use ([facility]) 2. Pain due to onychomycosis of toenails [...] . Patient states that he will use oqjx-lxx-sxmjtyq creams as necessary Marciano Hi DPM documented in this encounter [facility] 04-20-2024 History of Present illness Narrative Subjective Shahrzad Edgar is a 78 y.o. male Chief Complaint Follow-up HPI Patient is here for earlier follow-up. He is known to have a history of coronary artery disease, atrial fibrillation maintaining sinus rhythm with sotalol. He presented recently to the hospital with difficulty with speech and diagnosed with TIA. He was at [facility]. He underwent evaluation and was seen [...] on the review of the record from [place]. He was asked To see me to [...] signing my name below, I, Shaina Martins LPN, Scribe attest that this documentation has [...] discussion and plan. documented in this encounter [facility] Work Phone: 04-20-2024 Instructions Shaina [...] months Declines anticoagulation. documented in this encounter [facility] Work Phone: 03-17-2024 History of [...] has periodically been using prescribed or recommended lfid-kej-lneeykg cream with negative improvement. Patient also states he had cold exposure for many years to his feet Patient has history of right foot drop secondary to spinal surgery in the past and refused AFO rx in the past. Allergies: No Known Allergies Past Medical History: Past Medical History: Diagnosis Date Diabetes ([facility]) Medications: Current Outpatient Medications: aspirin 81 MG [...] and negative PT pedal pulses NEURO: 5.07 [place] Nacho monofilament test diminished to digits and forefoot bilaterally 125Hz tuning fork diminished to 1st MPJ bilaterally ORTHO: Positive pain on palpation to nails 1 through 10 +4/5dorsiflexion right ankle ASSESSMENT 1. Diabetes 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, unspecified whether snf insulin use ([facility]) 2. Pain due to onychomycosis of toenails [...] . Patient states that he will use tygc-hkg-xlgkuyr creams as necessary Marciano Hi DPM documented in this encounter [facility] 01-28-2024 History of Present illness Narrative [...] fibrillation. Last time he was back in A-fib but repeat EKG today he is in [...] name below, I, Carline Camacho LPN , Scribe attest that this documentation [...] discussion and plan. documented in this encounter [facility] Work Phone: 01-28-2024 Instructions Carline [...] be sent through Care Everywhere.Heart Healthy Diet (Swazi)documented in this encounter [facility] Work Phone: 01-07-2024 History of [...] has periodically been using prescribed or recommended vrqh-eat-euzwwui cream with minimal improvement. Patient also states he had cold exposure for many years to his feet Patient has history of right foot drop secondary to spinal surgery in the past and refused AFO rx in the past. Allergies: No Known Allergies Past Medical History: Past Medical History: Diagnosis Date Diabetes ([facility]) Medications: Current Outpatient Medications: aspirin 81 MG [...] and negative PT pedal pulses NEURO: 5.07 [place] [employer] monofilament test diminished to digits and [...] . Patient states that he will use woex-oif-qmgoyln creams as necessary Marciano Hi DPM documented in this encounter [facility] 07-30-2023 History of Present illness Narrative [...] name below, I, Shaina Martins LPN , Ilene attest that this documentation [...] discussion and plan. documented in this encounter [facility] Work Phone: 07-30-2023 Instructions Shaina [...] months with ekg documented in this encounter [facility] Work Phone: 01-29-2023 History of [...] in office today documented in this encounter [facility] Work Phone: 01-29-2023 Instructions Clyde [...] of your visit. documented in this encounter [facility] Work Phone: 06-05-2022 History of [...] try to retrieve retrieve his record from [facility] [employer] Work Phone: 12-03-2021 History of Present illness Narrative Images from the original note were not included. [employer] Progress Note Date: 12/03/2021 Patient name: Shahrzad [...] insulin (HCC) COPD (chronic obstructive pulmonary disease) (HCC) [id number] Score for Atrial Fibrillation Stroke Risk Risk Factors Component Value C CHF No 0 H HTN Yes 1 A2 Age >= 75 Yes, (76 y.o.) 2 D DM Yes 1 S2 Prior Stroke/TIA No 0 V Vascular Disease No 0 A Age 65-74 No, (76 y.o.) 0 Sc Sex male 0 [id number] Score 4 Score last updated 12/03/21 10:13 [...] Please call with further questions or concerns [place] [employer] [facility]. [phone] [facility] Neurology IN-PATIENT SERVICE [facility] Progress Note Date: 12/03/2021 Patient name: Shahrzad Edgar Date of admission: 11/28/2021 3:15 AM Account: [id number] Date of : 1945 PCP: No primary care provider on file. Room: [address] [place] [address] Code Status: Full Code Chief Complaint: Right [...] He is eager to be discharged to [facility]. Patient counseled regarding treatment follow-up plan, expressed understanding and agreement. Amiodarone infusion ongoing, plan to discontinue and start oral per cardiology. Likely discharge later today. Brief History of Present Illness: Shahrzad Edgar is a 76 y.o. male with H/O DM, CAD on a baby aspirin at home, A. tressa not on AC, who was admitted on 11/28/2021 with a right-sided temporal headache with dizziness. Initially evaluated at [facility] and later transferred to [facility] after CT head was done showing an [...] ms QTc Calculation (Bazett) 516 ms R [place] 23 degrees T [place] 48 degrees POC Glucose Fingerstick Collection Time: [...] 1.07 (L) 1.10 - 3.70 k/uL Absolute Sunflower # 1.20 0.10 - 1.20 k/uL Absolute [...] Assessment : Primary Problem Cerebrovascular accident (CVA) ([facility]) Active Hospital Problems Diagnosis Date Noted Atrial fibrillation with RVR ([facility]) [I48.91] 12/02/2021 Priority: Medium Type 2 diabetes mellitus without complication, without long-term current use of insulin ([facility]) [E11.9] 12/02/2021 Priority: Medium Primary hypertension [I10] 12/02/2021 Priority: Medium COPD (chronic obstructive pulmonary disease) ([facility]) [J44.9] 12/02/2021 Priority: Medium PAF (paroxysmal atrial fibrillation) ([facility]) [I48.0] 11/29/2021 Priority: Medium Anemia [D64.9] 11/29/2021 Priority: Medium Cerebrovascular accident (CVA) ([facility]) [I63.9] 11/28/2021 Priority: Medium Otitis media with [...] medical management PT/OT/ST Plan for discharge to [facility] today Follow-up further recommendations after discussing [...] history and exam findings with the resident/ CONCRETE CURER. I reviewed medications, clinical labs, x-rays and other diagnostic tests with the resident/ CONCRETE CURER. I have seen and examined the patient and the lamas elements of the encounter have been performed by me. I agree with the assessment, plan and orders as documented by the resident or CONCRETE CURER. Impression and Plan: Mr. Shahrzad Edgar is [...] from the original note were not included. [facility] Office: [phone] Darrius Mattson DO, Valente Kaur DO, Noel [...] Zena Irby MD, Lewis See MD, Blanka Martin CNP, Nicky Gonzalez CNP, Pattie Vasquez CNP, Prem Potter CNP, Adrienne Domingo, MIYA, Marissa Hamilton, CONCRETE CURER, Lida Soto, CONCRETE CURER, Rosmery Bryan, CONCRETE CURER, Cici Antoine, CONCRETE CURER, Leslie Chen, CONCRETE CURER, Lalito Baker, PA-C, Kathy Wilder, OPTICAL DESIGNER, Janet Bar DNP, Triny Francois, LAURENCE, Mary Ortiz CNP, Sue Rivera, LAURENCE [facility] IN-PATIENT SERVICE [facility] Progress Note 12/03/2021 8:19 AM Name: Shahrzad Edgar Acct: [id number] Room: [address] [place] [address] Day: 5 Admit Date: 11/28/2021 3:15 AM [...] C), Max:98.6 F (37 C) Recent Labs 12/02/2157 12/02/21 12012/02/21165412/02/212052 POCGLU 188* 197* 220* 164* I/O (24Hr): No intake or output data in the 24 hours ending 12/03/21 08 Labs: Hematology: Recent Labs 12/01/2135112/03/21406 WBC 15.0* 11.0 RBC 5.11 4.25 HGB 15.6 13.1 HCT 45.2 37.0* MCV 88.5 87.1 MCH 30.5 30.8 MCHC 34.5 35.4* RDW 13.8 13.7 PLT 235 223 MPV 9.6 10.6 Chemistry: Recent Labs 12/01/2135112/02/2131512/02/21 0837 12/03/21406 NA 132* -- -- 133* K 4.2 [...] -- 15 15 -- Recent Labs 12/01/21 18112/01/21202212/02/2157 12/02/21 12012/02/211654 11/12/22 2053 POCGLU 129* 132* 188* 197* 220* 164* ABG:No results found for: POCPH, PHART, PH, POCPCO2, CTW8YGK, PCO2, POCPO2, PO2ART, PO2, POCHCO3, TPW7UGD, HCO3, NBEA, PBEA, BEART, BE, THGBART, THB, FVE3ROQ, TLIX7WQA, U4FBZSMY, O2SAT, FIO2 Lab Results Component Value Date/Time [...] Modified POA * (Principal) Cerebrovascular accident (CVA) ([facility]) 11/30/2021 Yes Otitis media with effusion, left 11/28/2021 Yes PAF (paroxysmal atrial fibrillation) ([facility]) 12/02/2021 Yes Anemia 11/29/2021 Yes Atrial fibrillation with RVR ([facility]) 12/02/2021 No Primary hypertension 12/02/2021 Yes Type 2 diabetes mellitus without complication, without long-term current use of insulin ([facility]) 12/02/2021 Yes COPD (chronic obstructive pulmonary disease) ([facility]) 12/02/2021 Yes Plan: Middle ear mastoid effusion: [...] DO 12/03/2021 8:19 AM Physical Therapy Facility/Department: [address] NEURO ICU Daily Treatment Note NAME: [...] verbally reminded to do so; able to mixed animal veterinarian margie stedy with max A+1, again leans [...] with least restrictive AD Additional Goals?: No Miter Grinder Operator Goals Additional Goals?: No Education Patient Education Education Given To: Patient Education Provided: Role of Therapy;Plan of Care;Precautions;Transfer Training;Fall Prevention Strategies Education Method: Demonstration;Verbal;Teach Back Barriers to Learning: Cognition Education Outcome: Continued education needed Therapy Time Individual Concurrent Group Co-treatment Time In 1411 Time Out 1521 Minutes 70 Timed Code Treatment Minutes: 47 Minutes Zach Thakur, PT Speech Language Pathology Speech Language Pathology [facility] Cognitive and Speech Treatment Note Date: 12/02/2021 Patient s Name: Shahrzad dEgar Diagnosis: Patient Active Problem List Diagnosis Code Cerebrovascular accident (CVA) ([facility]) I63.9 Otitis media with effusion, left H65.92 History of atrial fibrillation Z86.79 Anemia D64.9 Pain: 0/10 Cognitive Treatment Treatment time: 5362-9290 Subjective: [x] Alert [x] Cooperative [] Confused [] Agitated [] Lethargic Objective/Assessment: Recall: Delayed Recall - Associated Lists: 11/29 independently Organization: Category Members - [place]: 02/01 increased to 03/03 with mod verbal cue Problem Solving/Reasoning: Word Deduction: 15/16 increased to 16/16 with mod verbal cue [...] recommended at discharge. Completed by: Sheri Serna Research Interviewer Clinician Cosigned By: Ayla White M.S.CCC/TEAR DOWN WORKER [employer] Documentation Note Admission Dx: Brain mass [G93.89] Past Medical History: has a past medical history of Arthritis, COPD (chronic obstructive pulmonary disease) (HCC), Diabetes mellitus (HCC), History of blood transfusion, and Hypertension. Previous Testing: ECHO 11/30/2021: EF 54%, negative bubble study, no valvular abnormalities. Previous office/hospital visit: None JUAN Toney [employer] NEUROLOGY INPATIENT PROGRESS NOTE 12/01/2021 Subjective: Shahrzad [...] not help. Patient was initially evaluated at [facility] and noted to have left upper [...] prior to transfer over. Upon arrival at [place], patient's blood pressure was normotensive. Evaluated by [...] started at that time. Continue on Statin PT/OT/TEAR DOWN WORKER Urinary retention - will obtain urology consulation [...] completed at the bedside. Physical Therapy Facility/Department: [address] NEURO ICU Daily Treatment Note Name: [...] Pt pleasant and cooperative t/o. Pt c/o 8/ headache after session; RN notified. Cognition Orientation [...] with least restrictive AD Additional Goals?: No Mcc Goals Additional Goals?: No Education Patient Education Education Given To: Patient Education Provided: Role of Therapy;Plan of Care Education Method: Demonstration;Verbal Barriers to Learning: Cognition Education Outcome: Continued education needed;Demonstrated understanding Therapy Time Individual Concurrent Group Co-treatment Time In 2 Time Out 1435 Minutes 23 Timed Code [...] who was admitted as a transfer from [facility] on 11/28/2021 for R temporal headache. Patient reported he had developed right temporal headache and dizziness on the day of arrival. Excedrin did not help. He was seen by his patient scheduling coordinator and was told that his BP was elevated; he was started on lisinopril 5 mg daily. He was initially evaluated at [facility]. Patient was noted to have left [...] IVPB x1 prior to be transferred to [facility] for higher level of care. [...] to ensure the accuracy of this automated certified personal trainer, some errors in certified personal trainer may have occurred. Associated attestation - Allan [...] all. Neuro MD notified Occupational Therapy Facility/Department: [address] NEURO ICU Occupational Therapy Initial Assessment [...] use in appartment) Transfer Assistance: Independent Active Concrete Technician: Yes Mode of Transportation: Car Occupation: Retired [...] Group Co-treatment Time In 0850 Time Out 09 Minutes 32 Timed Code Treatment Minutes: 24 Minutes (ADL + TherAct) MUNDO Richey OTR/L Physical Therapy Facility/Department: [address] NEURO ICU Physical Therapy Initial Assessment [...] exact time). He was initially evaluated at [facility]. Patient was reported to have been at patient scheduling coordinator earlier today, and BP was elevated, but patient unable to state how elevated. No improvement with Excedrin. Patient denies any other blood thinners aside from aspirin. At [facility] facility patient noted to have clear [...] did have purulent material. CT head from [facility] showed area of hypoattenuation in right [...] use in appartment) Transfer Assistance: Independent Active Concrete Technician: Yes Mode of Transportation: Car Occupation: Retired [...] sitting EOB for ~13 mins. AM-PAC Score -[facility] Inpatient Mobility Raw Score : 9 (11/29/211544) [facility] Inpatient T-Scale Score : 30.55 (11/29/211544) Mobility Inpatient [facility] 0-100% Score: 81.38 (11/29/211544) Mobility Inpatient [facility] G-Code Modifier : CM (11/29/211544) Goals Short [...] with least restrictive AD Additional Goals?: No Mcc Goals Additional Goals?: No Education Patient Education [...] Patient's name: Shahrzad Edgar Patient's account/billing number: [id number] Patient's Date of : 1945 Age: 76 y.o. Date of Admission: 11/28/2021 3:15 AM Length of stay during current admission: 1 Primary Care Physician: No primary care provider on file. Code Status: Full Code Mode of physician to physician communication: [] Via telephone [x] In person Date and time of sign-out: 11/29/2021 2:50 PM Accepting Neurology TELEVISION CABINET FINISHER: Adina Do NP Accepting team's attending: Dr. [...] PM Speech Language Pathology Speech Language Pathology [facility] Dysphagia Treatment Note Date: 11/29/2021 Patient [...] Provided with Soft Solids, Puree, Thin and [place] thick trials. Pt. With no overt s/s [...] recommended at discharge. Treatment completed by: Ayla White, ROBBY, M.S. CCC-TEAR DOWN WORKER Speech Language Pathology Speech Language Pathology [facility] Cognitive and Speech Treatment Note Date: [...] 8/9 with repetitions Organization: Category Members - [place]: 27/36 increased to 36/36 with min-mod verbal [...] recommended at discharge. Completed by: Sheri Serna Research Interviewer Clinician Cosigned By: Ayla White M.S.CCC/TEAR DOWN WORKER Images from the original note were not [...] Name: Shahrzad Edgar Patient : 1945 Room/Bed: [address] [place] [address] Code Status: Full Code Allergies: Allergies Allergen [...] Guevara Kaur DO Neuro Critical Care Pager [phone] 11/29/2021 6:48 AM Associated attestation - Neal [...] prophylaxis. Maintain SBP < 160. Incentive spirometry. TEAR DOWN WORKER eval. PT/OT. Insulin sliding scale. Stepdown. Discharge planning. I independently reviewed all labs, imaging and EKG tracings Speech Language Pathology Facility/Department: [address] NEURO ICU CLINICAL BEDSIDE SWALLOW EVALUATION [...] exact time). He was initially evaluated at [facility]. Patient was reported to have been at patient scheduling coordinator earlier today, and BP was elevated, but patient unable to state how elevated. No improvement with Excedrin. Patient denies any other blood thinners aside from aspirin. At [facility] facility patient noted to have clear [...] prior to transfer to Neuro ICU at [place]. Pain: Pain Assessment Pain Assessment: 0-10 Pain [...] with partial PO only Treatment Plan Requires TEAR DOWN WORKER Intervention: Yes D/C Recommendations: Ongoing speech therapy [...] Patient Education Response: Needs reinforcement Therapy Time [id number] ROBBY Hall 11/28/2021 3:02 PM Speech Language Pathology Facility/Department: [address] NEURO ICU Initial Speech/Language/Cognitive Assessment NAME: [...] exact time). He was initially evaluated at [facility]. Patient was reported to have been at patient scheduling coordinator earlier today, and BP was elevated, but patient unable to state how elevated. No improvement with Excedrin. Patient denies any other blood thinners aside from aspirin. At [facility] facility patient noted to have clear [...] did have purulent material. CT head from [facility] facility showed area of hypoattenuation in [...] prior to transfer to Neuro ICU at [place]. Pain: Pain Assessment Pain Assessment: 0-10 Pain [...] noted deficits. Education provided. Recommendations: Recommendations Requires TEAR DOWN WORKER Intervention: Yes Patient Education: yes Patient Education [...] With: Friend(s) Type of Home: Apartment Active Concrete Technician: Yes Vision Vision: Within Functional Limits Hearing [...] 1058 Minutes 12 Completed by: Sheri Serna Research Interviewer Clinician Cosigned By: Ayla White M.S.CCC/TEAR DOWN WORKER [facility] Pharmacokinetic Monitoring Service - Vancomycin Shahrzad [...] 11/28/2021 6:35 AM documented in this encounter [facility] Work Phone: 12-02-2021 Hospital Discharge instructions Yair Schofield RN - 12/02/2021 2:45 PM EDT Continuity of Care Form Patient Name: Shahrzad Edgar : 1945 Admit date: 11/28/2021 Discharge date: 12/03/2021 Code Status Order: Full Code Advance Directives: Admitting Physician: Allan Pemberton DO PCP: No primary care provider on file. Discharging Nurse: yair Discharging Hospital Unit/Room#: 0122/0122-01 Discharging Unit Phone Number: [phone] Emergency Contact: Extended Emergency Contact Information Primary Emergency Contact: nadine allen Relation: Other Preferred language: [place] Line Appliance Assembler needed? No Past Surgical History: No past surgical history on file. Immunization History: Immunization History Administered Date(s) Administered COVID-19, PFIZER PURPLE top, DILUTE for use, (age 12 y+), 30mcg/0.3mL 05/21/2020, 06/12/2020, 01/15/2021 Active Problems: Patient Active Problem List Diagnosis Code Cerebrovascular accident (CVA) ([facility]) I63.9 Otitis media with effusion, left H65.92 [...] Assisted Dressing Assisted Toileting Independent Feeding Independent Utility Division Project Manager Independent Med Delivery whole Wound Care Documentation [...] Dysphagia soft Routes of Feeding: Oral Liquids: [place] Thick Liquids Daily Fluid Restriction: 1500 Last [...] Readmission: 13 Discharging to Facility/ Agency Name: [facility] Address: Phone: Fax: Dialysis Facility (if applicable) Name: Address: Dialysis Schedule: Phone: Fax: Contract Administrator/National Park Ranger signature: PHYSICIAN SECTION Prognosis: {Prognosis:8109116519} Condition at Discharge: { Patient Condition:834964764} Rehab Potential (if transferring to Rehab): {Prognosis:9319669979} Recommended Labs or Other Treatments After Discharge: Physician Certification: I certify the above information and transfer of Shahrzad Edgar is necessary for the continuing treatment of the diagnosis listed and that he requires {Admit to Appropriate Level of Care:16267} for {GREATER/LESS:510764903} 30 days. Update Admission H&P: {CHP DME Changes in HandP:149096224} PHYSICIAN SIGNATURE: The following attachments cannot be sent through Care Everywhere.[place] ([place]azi)Ischemic Stroke: General Info (Swazi)Stroke: Symptoms: General Info (Swazi)Diabetes: Heart Attack and Stroke Risk: General Info ([place])documented in this encounter [facility] [employer] Phone: 09-17-2021 Evaluation note Encounter Date Diagnosis Assessment Notes Aug, Left hand pain (ICD-10 - M79.642) Aug, Closed displaced fracture of proximal phalanx of left little finger with routine healing, subsequent encounter (ICD-10 - S62.617D) Radiographs reviewed with patient today. Discussed with patient to work on range of motion exercises Intent Other 06-09-2022 Evaluation note* Encounter Date Diagnosis [...] and elevate to decrease pain and swelling. Intent Other 06-06-2022 NotePROCEDURE: XR HAND LT MIN 3V COMPARISON: None. HISTORY: Pain FINDINGS: BONES:Subtle contour deformity identified at the base of the fifth proximal phalanx. No dislocation. Mild degenerative changes. SOFT TISSUES:Negative. No visible soft tissue swelling. EFFUSION:None visible. OTHER: Negative. IMPRESSION: Suspected nondisplaced fracture base of the fifth proximal phalanx Electronically authenticated by: REINA GO Date: 2021-08-26 10:45[facility] Diagnosis Cerebrovascular accident (CVA), unspecified [...] (HCC) Intracerebral hemorrhage documented in this encounter [facility] [employer] Work Phone: evaluation noteNo assessment information available [facility] Work Phone: Evaluation note* Diagnosis Single vessel coronary disease- Primary Essential hypertension Unspecified essential hypertension Mixed hyperlipidemia Persistent atrial fibrillation ([facility]/HCC) Atrial fibrillation Anemia, unspecified type BMI 28.0-28.9,adult documented in this encounter [facility] Work Phone: Evaluation note* Diagnosis High risk medication use- Primary Single vessel coronary disease Essential hypertension Unspecified essential hypertension Mixed hyperlipidemia Persistent atrial fibrillation (Multi) Atrial fibrillation BMI 28.0-28.9,adult Cerebrovascular accident (CVA), unspecified mechanism (Multi) Anemia, unspecified type Former smoker Personal history of tobacco use, presenting hazards to health documented in this encounter [facility] Work Phone: Evaluation note* Diagnosis Xerosis cutis- Primary Other specified disease of sebaceous glands Onychomycosis Dermatophytosis of nail Pain due to onychomycosis of toenails of both feet Right foot drop Other acquired deformity of ankle and foot documented in this encounter [facility]* Diagnosis Persistent atrial fibrillation (Multi)- Primary Atrial fibrillation Single vessel coronary disease Mixed hyperlipidemia Essential hypertension Unspecified essential hypertension Anemia, unspecified type Cerebrovascular accident (CVA), unspecified mechanism (Multi) High risk medication use Former smoker Personal history of tobacco use, presenting hazards to health BMI 27.0-27.9,adult documented in this encounter [facility] Work Phone: Evaluation note* Diagnosis Xerosis cutis- Primary Other specified disease of sebaceous glands Diabetes 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, 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 ([facility]) Pain due to onychomycosis of toenails of both feet Right foot drop Other acquired deformity of ankle and foot documented in this encounter [facility]* Diagnosis TIA (transient ischemic [...] health BMI 26.0-26.9,adult documented in this encounter [facility] Work Phone: Evaluation note* Diagnosis Persistent atrial fibrillation (Multi)- Primary Atrial fibrillation Single vessel coronary disease High risk medication use Stenosis of right carotid artery Occlusion and stenosis of carotid artery without mention of cerebral infarction Mixed hyperlipidemia Essential hypertension Unspecified essential hypertension Anemia, unspecified type Cerebrovascular accident (CVA), unspecified mechanism (Multi) Former smoker Personal history of tobacco use, presenting hazards to health BMI 24.0-24.9, adult Prolonged QT interval Nonspecific abnormal electrocardiogram (ECG) (EKG) documented in this encounter [facility] Work Phone: Evaluation note* Diagnosis Xerosis cutis- Primary Other specified disease of sebaceous glands Diabetes 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, 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 (HCC) Pain due to onychomycosis of toenails of both feet Right foot drop Other acquired deformity of ankle and foot documented in this encounter [facility]* Diagnosis Persistent atrial fibrillation (Multi)- Primary Atrial fibrillation High risk medication use documented in this encounter [facility] Work Phone: Evaluation note* Diagnosis High risk medication use Persistent atrial fibrillation (Multi) Atrial fibrillation documented in this encounter [facility] Work Phone: History general Narrative - Reported* Type Description Date Medical History [place] Medical History DM Medical History HTN Surgical History cholecystectomy Surgical History back surgery Surgical History elbow surgery Surgical History cataracts, bilaterally Surgical History T & A Hospitalization History see above Hospitalization History [place] -2019 Intent Other History of Present illness Narrative* Is [...] advised to repeat lab work as ordered -[facility] DO Work Phone: History of Present [...] 5. 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 Unfortunately he did not tolerate Eliquis and this was discontinued. Patient did not bring his medication with him. He reports he was in the hospital in [place] in [place] after a stroke. Hedoes not know if [...] 4. I to retrieve his record from [place] * 5. I advised the patient TO bring his medication with him and tried to write things down concerninghis memory does not appears to be good and he has no good social support system [facility] 250 DO Work Phone: History of Present illness Narrative* Marciano Hi, VILMA - 11/03/2024 2:40 PM EDT Patient: Shahrzad Edgar : 1945 PCP: Noms Provider MD Deo SUBJECTIVE This is a 79 y.o. male that presents today with a [...] skin and fissures to feet and has not been using prescribed or recommended [id number] cream with negative improvement. Patient has history of right foot drop secondary to spinal surgery in the past and refused AFO rx in the past. Allergies: No Known Allergies Past Medical History: Past Medical History: Diagnosis Date Diabetes (HCC) Medications: Current Outpatient Medications: aspirin 81 MG [...] growth with thin shiny atrophic skin bilaterally positive Large amounts of Dry and scaly skin to bilateral feet and ankles VASC: Negative DP and negative PT pedal pulses NEURO: 5.07 [place] [employer] monofilament test diminished to digits and forefoot bilaterally 125Hz tuning fork diminished to 1st MPJ bilaterally ORTHO: Positive pain on palpation to toenails of the left 1,2,3,4,5 toes and right 1,2,3,4,5 toes +4/5dorsiflexion right ankle ASSESSMENT 1. 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 Pain due to onychomycosis of toenails [...] to both feet. Patient had a diabetic neurologicalexam today to both their feet and discussed proper shoe gear. Patient education on condition and treatment of condition. Patient encouraged to continue with creams to feet daily and did offer urea cream . Marciano Hi DPM documented in this encounterNOMS Healthcare Summary Purpose Family History No Family History [...] 12 Lead Veronica Liz MD [address] [facility] 2, [address] [address] Referral ID Status Reason Start Date Expiration Date V isits Requested Visits Authorized [id number] Pending Review 01/29/2023 01/29/2024 1 1 Specialty Diagnoses / Procedures Referred By Julio C day Referred To Contact Cardiology Diagnoses Single vessel coronary disease Essential hypertension Procedures Follow Up In Cardiology Veronica Liz MD [address] [facility] 2, [address] [address] Veronica Liz MD [address] [facility] 2, [address] [place] [address] Referral ID Status Reason Start Date Expiration Date V isits Requested Visits Authorized [id number] Authorized 01/29/2023 01/29/2024 1 1 Specialty Diagnoses / Procedures Referred By Contac t Referred To Contact Radiology Diagnoses Cerebrovascular accident (CVA), unspecified mechanism (HCC) Procedures CT HEAD WO CONTRAST Alexander Grey, TAB MACHINE OPERATOR - CONCRETE CURER [address] [facility] [address] [place] [address] Referral ID Status Reason Start Date Expiration Date Visits Re quested Visits Authorized [id number] Open 12/19/2021 12/19/2022 1 1 Additional Source Comments (unrecognized sect ion and content) No Status Records FoundNo Status Records FoundNo Status Records FoundNo Status Records FoundNo Status Records FoundNo Status Records FoundNo Status Records FoundNo Status Records Found INFORMATION SOURCE (unrecogn ized section and content) DATE CREATED AUTHOR 06/11/2018 [facility] Healthcare DATE CREATED AUTHOR AUTHOR'S ORGANIZ ATION 12/17/2021 [facility] DATE CREATED AUTHOR AUTHOR'S ORGANIZ ATION 05/18/2022 [facility] DATE CREATED AUTHOR AUTHOR'S ORGANIZ ATION 06/06/2022 [employer] DATE CREATED AUTHOR AUTHOR'S ORGANIZ ATION 08/07/2022 [facility] DATE CREATED AUTHOR AUTHOR'S ORGANIZ ATION 04/11/2024 [facility] DATE CREATED AUTHOR AUTHOR'S ORGANIZ ATION 11/05/2024 [facility] EPIC DATE CREATED AUTHOR AUTHOR'S ORGANIZ ATION 11/25/2024 [facility] REASON FOR VISIT (unrecogniz ed section and content) Reason Comments Follow-up 6 month Specialty Diagnoses / Procedures Referred By Contac t Referred To Contact Diagnoses Persistent atrial fibrillation (CMS/HCC) Procedures ECG 12 Lead Veronica Liz MD 7[address] [facility] 2, [address] [place] [address] Referral ID Status Reason Start Date Expiration Date V isits Requested Visits Authorized [id number] Pending Review 01/29/2023 01/29/2024 1 1 Reason Comments Follow-up 6 months Specialty Diagnoses / Procedures Referred By Contac t Referred To Contact Cardiology Diagnoses Single vessel coronary disease Essential hypertension Procedures Follow Up In Cardiology Veronica Liz MD [address] [facility] 2, [address] [place] [id number] Veronica Liz MD [address], [address] [place] [id number] Referral ID Status Reason Start Date Expiration Date V isits Requested Visits Authorized [id number] Authorized 01/29/2023 01/29/2024 1 1 Reason Comments Toenail Care Non DM Nails Specialty Diagnoses / Procedures Referred By Contac t Referred To Contact Cardiology Diagnoses Persistent atrial fibrillation (Multi) Procedures Follow Up In Cardiology Veronica Liz MD [address] [facility] 2, [address] [address] Phone: tel: fax: Veronica Liz MD [address] [facility] 2, [address] [address] Phone: tel: fax: Referral ID Status Reason Start Date Expiration Date V isits Requested Visits Authorized [id number] Authorized 07/30/2023 07/29/2024 1 1 Reason Comments Toenail Care Non dm nail care Reason Comments Follow-up [facility] 04/06 TIA expressive aphasia Specialty Diagnoses / Procedures Referred By Contac t Referred To Contact Diagnoses Persistent atrial fibrillation (Multi) Procedures ECG 12 Lead Veronica Liz MD [address] [facility] 2, [address] [address] Phone: tel: fax: Referral ID Status Reason Start Date Expiration Date V isits Requested Visits Authorized [id number] Authorized 04/20/2024 04/20/2025 1 1 Reason Comments Follow-up 6 months Persistent atrial fibrillation (Multi Specialty Diagnoses / Procedures Referred By Contac t Referred To Contact Cardiology Diagnoses Single vessel coronary disease Procedures Follow Up In Cardiology Veronica Liz MD [address] [place], [place] [address]er [facility] 2, [place] [phone] Phone: tel: fax: Veronica Liz MD [address] [facility] 2, [place] [phone] Phone: tel: fax: Referral ID Status Reason Start Date Expiration Date V isits Requested Visits Authorized [id number] Authorized 01/28/2024 01/27/2025 1 1 Reason Comments Toenail Care Reason Comments EKG visit Specialty Diagnoses / Procedures Referred By Contac t Referred To Contact Diagnoses High risk medication use Persistent atrial fibrillation (Multi) Procedures ECG 12 Lead [facility] 2, [place] [phone] Phone: tel: fax: Referral ID Status Reason Start Date Expiration Date V isits Requested Visits Authorized [id number] Authorized 10/26/2024 10/26/2025 1 1 Reason Comments Abnormal ECG 2 week EKG follow up for Persistent atrial fibrillation Specialty Diagnoses / Procedures Referred By Contac t Referred To Contact Diagnoses High risk medication use Persistent atrial fibrillation (Multi) Procedures ECG 12 Lead Veronica Liz MD [address] [place] [address], [place] [phone] Phone: tel: fax: Referral ID Status Reason Start Date Expiration Date V isits Requested Visits Authorized [id number] Authorized 11/09/2024 11/09/2025 1 1 Ordered Prescriptions (unrec ognized section [...] TIMES DAILY, 10 doses, First dose on Tu12/03/21 at 1100, Last dose on 12/07/21 at [...] Other Abx Indication: Left ear infection/possible mastoiditis 36 (Given - Provider: Huang Gurrola RN) atorvastatin [...] on 12/02/21 at 2100, Last dose on 12/07/21 at 0900, Antimicrobial Indications: Head and Neck Infection 2053 (Given - Provider: Jono Serrano RN) 0848 (Given - Provider: Little Treadwell, JUAN)2020 (Given - Provider: Jono Serrano RN) 0847 (Given - Provider: Yair Schofield RN)2099 (Due) enoxaparin Sodium (LOVENOX) injection 30 mg 30 mg, SubCUTAneous, 2 TIMES DAILY, First dose on Thu11/29/21 at 1030, Until Discontinued, Indication of Use: Prophylaxis-DVT/PE 0942 (Given - Provider: Huang Gurrola RN)2053 (Given - Provider: Jono Serrano RN) 0847 (Given - Provider: Little Treadwell, JUAN)2020 (Given - Provider: Jono Serrano RN) 0846 [...] Reason: Order parameters not met - Comment: [id number] (Not Given - Provider: Huang Gurrola RN [...] RN) 0847 (Given - Provider: Yair Schofield JUAN) tamsulosin (FLOMAX) capsule 0.4 mg 0.4 mg, Oral, DAILY, First dose on Thu12/01/21 at 2100, Until Discontinued, Do not crush or break. 0936 (Given - Provider: Huang Gurrola RN) 0847 (Given - Provider: Little Treadwell, RN) 0847 (Given - Provider: Yair Schofield [...] Gurrola RN)2350 (New Bag - Provider: Jono Serrano, JUAN) 1121 (Stopped - Provider: Little Treadwell, JUAN) [...] JUAN) 0123 (Given - Provider: Jono Serrano, RN)0846 (Given - Provider: Little Treadwell RN)2253 (Given - Provider: Jono Serrano, JUAN) 0735 (Given - Provider: Yair Schofield, RN)1223 [...] mg 1 mg, SubCUTAneous, PRN, Starting on Kimmie 11/28/21 at 0752, [...] IntraVENous, EVERY 4 HOURS PRN, Starting on Kimmie 11/28/21 at 1319, Until Discontinued, High Blood Pressure, SBP > 160, Hold for HR < 60 0638 (Given - Provider: Charo Rudd, JUAN) loperamide (IMODIUM) capsule 2 mg 2 mg, [...] Kimmie 11/28/21 at 0317, Until Discontinued, Nausea, Vomiting, Administer if oral route cannot be used. ondansetron (ZOFRAN-ODT) disintegrating tablet 4 mg(Linked Group 3) 4 mg, Oral, EVERY 8 HOURS PRN, Starting on Kimmie 9/8/22 at 0317, Until Discontinued, Nausea, Vomiting opium-belladonna (B&O SUPPRETTES) 16.2-60 MG suppository 60 mg mg dosing is based on opium component, 60 mg, Rectal, EVERY 8 HOURS PRN, Starting on 12/02/21 at 1230, Until Discontinued, Bladder Spasms, Note: Additive effect with hyoscyamine. sodium chloride flush 0.9 % injection 10 mL 10 mL, IntraVENous, PRN, Starting on Thu11/28/21 at 0937, Until Discontinued, Line Care 0847 (Given - Provider: Yair Schofield RN) Linked Groups Order Group 1: amiodarone (CORDARONE) tablet 200 mgJump to med 200 mg, Oral, 2 TIMES DAILY, 10 doses, First dose on Tu12/03/21 at 1100, Last dose on 12/07/21 at [...] Care Teams (unrecognized sec tion and content) Management Consultant Relationship Specialty Start Date End Date MichelleValente NoamDO [address] [place] [address] PCP - General 03/23/99 Management Consultant Relationship Specialty Start Date End Date Unallocated, Godwin Ojeda MD [address] [place] [address] PCP - General Family Medicine 06/04/23 Management Consultant Relationship Specialty Start Date End Date Unallocated, Godwin Ojeda MD [address] [place] [address] PCP - General Family Medicine 06/04/23 Management Consultant Relationship Specialty Start Date End Date Veronica Liz MD [address] [facility] 2, [address] [place] [address] PCP - MSSP ACO Attributed Provider 03/23/23 Management Consultant Relationship Specialty Start Date End Date Veronica Liz MD [address] [facility] 2, [address] [place] [address] PCP - MSSP ACO Attributed Provider 03/23/23 Zachariah Ochoa MD [address] [place] [address] PCP - General Family Medicine 04/20/24 Management Consultant Relationship Specialty Start Date End Date Zachariah Ochoa MD [address] [place] [address] PCP - General [facility] Medicine 04/20/24 Management Consultant Relationship Specialty Start Date End Date Zachariah Ochoa MD [address] [place] [address] PCP - General [facility] Medicine 04/20/24 Management Consultant Relationship Specialty Start Date End Date Zachariah Ochoa MD [address] [place] [address] PCP - General Family Medicine 04/20/24 FOR [...] BE BASED ON THE PRIMARY CLINICAL RECORDS. [facility] [employer] [facility]. provides no warranty or guarantee of the accuracy or completeness of information in this document.
[2024-12-15] MEDS: ACETAMINOPHEN 500 MG TABLET PO (12:25)
[2024-12-15 12:38] LABS: Glucose Urine UA 100 mg/dL (NEGATIVE)
[2024-12-15 12:51] LABS: Cast Seen? NONE SEEN #/LPF (NONE SEEN); Crystals Seen? None Seen #/HPF (None Seen); Urine Culture Indicated YES-FRMC
== END 2024-12-15 13:58 | disposition home or self-care (01) ==
PROVIDERS: Emergency Provider Emergency Medicine; PCP Family Medicine
DX: N39.0 Urinary tract infection, site not specified (principal); Z87.891 Personal history of nicotine dependence
CPT/HCPCS: 36415; 70450; 71045; 80048; 81001; 84484; 85025; 87086; 93005; 96365; 99285; J0696

== ENCOUNTER 2025-01-15 07:07 | Observation (INO) | payer MEDICARE, SELFPAY ==
[2025-01-15] VITALS (29 sets, daily range): BP systolic 130–170; BP diastolic 68–102; PULSE 54–72; TEMP 36.5–36.9; O2SAT 89–100; BMI 24.4; BMI 22.8
--- NOTE | 2025-01-15 07:14 | XR_ITS ---
The [address] [address] Patient Name: SHAHRZAD EDGAR MRN: [id number] date: 1945 Sex: M Assigned Patient Location: ER Current Patient Location: ED.MAIN Accession/Order Number: [id number] Exam Date: 01/15/2025 07:30 Report Date: 01/15/2025 08:56 At the request of: INDIRA VOGT DO Procedure: XR ribs LT min 3V w CXR1V Left Rib series with Single View Chest HISTORY: Left anterior rib pain. Fell 4 days ago. COMPARISON: 12/15/2024 MEDIASTINUM: Cardiac, mediastinal hilar silhouettes are within normal limits. LUNGS AND PLEURA: Developing of nodular consolidation in the left paramediastinal region superior to the aortic arch. No pleural effusion. No pneumothorax. ACUTE FINDINGS: Anterior left seventh rib fracture identified. DEGENERATIVE CHANGE: Unremarkable SOFT TISSUE: Unremarkable POSTOP CHANGES: None XR/XR ribs LT min 3V w CXR1V IMPRESSION: Anterior left seventh rib fracture. Developing nodular consolidation in the left suprahilar/left paramediastinal region. May represent infiltrate. Malignancy should be excluded. CT chest without contrast may be useful in further assess. Impression dictated by: Gilles Francois M.D. 01/15/2025 8:56 AM Dictation Location: [facility]ITALOpen Lending Electronically authenticated by: [id number] Y Date: 01/15/2025 08:56
--- NOTE | 2025-01-15 07:15 | ECG_ITS ---
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 Measurements Intervals [place] Rate: 74 P: 58 MI: 196 QRS: 44 QRSD: 84 T: 52 QT: 446 QTc: 473 Interpretive Statements 1100 Sinus rhythm 1574 with frequent ventricular premature complexes 8102 Low QRS voltage in chest leads 8304 Long QTc interval 9150 abnormal ECG Compared to ECG 12/15/2024 08:40:16 Low QRS voltage now present Electronically Signed On 01-15-2025 10:07:37 EDT by ANCA BUTLER M.D.
--- OUTSIDE RECORDS SUMMARY | 2025-01-15 07:17 | XMS_ITS | CCD ---
Author Organization [facility] Care Team Providers Care Predatory Game Hunter Name Role Phone VERONICA LIZ Attending Unavailable HOUSE, VALENTE Primary Care Unavailable Michelle, Valente P Unavailable Unavailable Unavailable Saurabh Goyal Unavailable Unavailable Primary Care Provider Unavailkate saul MARKER, BENITA Referring Unavailable CHIRRI, ALLAN Admitting Unavailable CHIRRIANILL Attending Unavailable SONIA MCKINNEY Consulting Unavailable CRISTIN ORTEGA Consulting Unavailable JORGE LUISKENIA CUNHA Consulting Unavailab le ZOGRAFFARIBA MCGUIRE Consulting Unavailable [...] Unavailable PAY ., DR ORLANDO Attending Unavailable [place], DR REINA Palacios Consulting Unavailable PAY ., [...] , [place] Provider Primary Care Provi miya Marsha LEW, Rosyf Unavailable Zachariah Ochoa MD Primary Care Provider [phone] Zachariah Ochoa MD Primary Care Provider MARCIANO HI Attending Unavailable MARCIANO HI Attending Unavailable MARCIANO HI Attending Unavailable MARCIANO HI Attending Unavailable MARCIANO HI Attending Unavailable TRABOULSSI, MOURHAF Attending Unavailable TRABOULSSI, MOURHAF Referring Unavailable ZACHARIAH OCHOA Primary Care Unavailable TRABOULSSI, MOURHAF Referring Unavailable ZACHARIAH OCHOA Primary Care Unavailable TRABOULSSI, MOURHAF Attending Unavailable TRABOULSSI, MOURHAF Referring Unavailable TRABOULSSI, MOURHAF Attending Unavailable ZACHARIAH OCHOA Primary Care Unavailable VERONICA LIZ Referring Unavailable ZACHARIAH OCHOA Primary Care Unavailable Gilles Herrera DO Attending Provider Gilles Herrera Attending Unavailable Gilles Herrera Admitting Unavailable Faustino Wiley Attending Unavailable Allergies Allergy ClassificationReported Allergen(s)Allergy TypeDate of OnsetReaction(s) Facility (2 sources)Coconut extractDrug AllergyC[facility] Other (1 source)coconut allergenic extractDrug Fmijedm85-22-8396EajcwqummpaUSDBon [facility] (1 source)Coconut extractDrug Vtblwtt46-75-0581RhrUk [facility] Repository (4 sources)Coconut Oil OIL; Translations: [Coconut Oil OIL]Allergy to drug (finding)[facility] DO Work Phone: (10 sources)Coconut Oil; Translations: [COCONUT OIL]Drug Osrqkux07-35-1856ThpklWilson Health (1 source)Coconut extractDrug Ttjhzjg99-12-7663YeffutphjMercy Health [facility] Medications Current Medications MedicationDrug Class(es)DatesSig (Normalized)Sig (Original)amiodarone hydrochloride 200 mg oral tablet (3 sources)AntiarrhythmicStart: 12-08-2021 End: 56-81-6431hvba 1 tablet by mouth once dailyamiodarone (CORDARONE) 200 MG tablet Take 1 tablet by mouth daily 90 tablet 0 12/08/2021 03/08/2022ctive Start: 12-03-2021 End: 65-92-7796dhun 1 tablet by mouth twice dailyamiodarone (CORDARONE) 200 MG tablet Take 1 tablet by mouth 2 times daily for 9 doses 9 tablet 0 12/03/2021 12/08/2021 ActiveStart: 12-03-2021 End: 47-13-9637hgvxjhdiij (CORDARONE) tablet 200 mgAspir-81 (2 sources)Aspir-81 Activeaspirin 81 mg delayed release oral tablet (20 sources)Platelet Aggregation Inhibitor, Nonsteroidal Anti-inflammatory Drug Start: 05-30-2020 End: 48-04-8713tssd 1 tablet by mouth once dailyStart: 05-29-2020 End: 15-29-0959zlrg 1 tablet by mouth once dailyAspirin 81 mg Tablet Discontinued 81 MG PO Daily May 29, 2020 1:00am May 30, 2020 1:41pmStart: 03-31-2019 End: 70-08-0774amyq 1 tablet by mouth once dailyAspirin (Aspir-81) 81 mg Tablet,Delayed Release (Dr/Ec) Discontinued 81 MG PO Daily March 31, 2019 1:00am April 20, 2019 12:16pmatorvastatin 80 mg oral tablet (20 sources)HMG-CoA Reductase InhibitorStart: 04-66-3668dlgt 1 tablet by mouth once daily in the eveningbelladonna alkaloids 16.2 mg / opium 60 mg rectal suppository (1 source)Start: 90-61-6757prrxy-belladonna (B&O SUPPRETTES) 16.2-60 MG suppository 60 mgcefdinir 300 mg oral capsule (2 sources)Cephalosporin AntibacterialStart: 12-02-2021 End: 87-05-2974ldyh 1 capsule by mouth every twelve hourscefdinir (OMNICEF) 300 MG capsule Take 1 capsule by mouth every 12 hours for 8 doses 8 capsule 0 12/07/2021 Active0.3 ml enoxaparin sodium 100 mg/ml prefilled syringe (1 source)Low Molecular Weight HeparinStart: 01-72-2835zimgnumnaf Sodium (LOVENOX) injection 30 mgglucagon (rdna) 1 mg injection (1 source)Antihypoglycemic AgentStart: 74-89-0352pkocqtuz (rDNA) injection 1 mg 1000 ml glucose 100 mg/ml injection (3 sources)Start: 30-88-4325eixisqpf 10 % infusionStart: 97-12-8817mjgmwukx bolus 10% 125 mLStart: 93-18-8077zbcjmxe chewable tablet 16 ghyoscyamine sulfate 0.125 mg sublingual tablet (1 source)Start: 55-10-9014yyxggqzving (LEVSIN/SL) sublingual tablet 125 mcg ibuprofen 400 mg oral tablet (8 sources)Nonsteroidal Anti-inflammatory Drugtake 1 tablet by mouth twice daily ibuprofen 400 MG tablet Take 1 tablet twice a day by oral route. Activeinsulin lispro 100 unt/ml injectable solution (3 sources)Insulin AnalogStart: 11-28-2021 End: 23-43-5445uhqocwo lispro (HUMALOG) injection vial 0-16 Unitslabetalol hydrochloride 5 mg/ml injectable solution (1 source)beta-Adrenergic BlockerStart: 97-46-1299aqgnnshfl (NORMODYNE;TRANDATE) injection 10 mglisinopril 10 mg oral tablet (20 sources)Angiotensin Converting Enzyme InhibitorStart: 87-30-0957mwhv 0.5 tablet by mouth once dailylisinopril 10 mg tablet Take 0.5 tablets (5 mg) by mouth once daily. 11/04/2023 ActiveStart: 14-78-0486ezpldlwwva 10 mg tablet 1 tablet (10 mg) once daily. 11/04/2023 ActiveStart: 62-58-2289gops 1 tablet by mouth once dailylisinopril (PRINIVIL;ZESTRIL) 10 MG tablet Take 1 tablet by mouth daily 30 tablet 3 12/03/2021 ActiveStart: 11-27-2021 End: 90-03-2152aies 1 tablet by mouth once dailyLisinopril 5 MG Oral Tablet TAKE 1 TABLET DAILY. Quantity: 90 Refills: 3 Ordered: 27-Nov-2021 Veronica Liz MD Start : 27-Nov-2021 Active new doseStart: 04-01-2019 End: 27-38-6492gyml 1 tablet by mouth once dailyloperamide hydrochloride 2 mg oral capsule (1 source)Opioid AgonistStart: 69-31-1109tptbmcfdye (IMODIUM) capsule 2 mg magnesium oxide 400 mg oral tablet (1 source)Start: 11-11-2024 End: 56-81-5229zqlo 1 tablet by mouth twice dailymagnesium oxide (Mag-Ox) 400 mg (241.3 mg elemental) tablet Indications: Persistent atrial fibrillation (Multi) Take 1 tablet by mouth 2 times a day. 11/11/2024 11/11/2025 Activemetoprolol tartrate 25 mg oral tablet (7 sources)beta-Adrenergic BlockerStart: 41-73-8766unpe 1 tablet by mouth twice dailymetoprolol tartrate (LOPRESSOR) 25 MG tablet Take 1 tablet by mouth 2 times daily 60 tablet 3 12/03/2021 ActiveStart: 19-17-7217eccdcetzlo (LOPRESSOR) injection 5 mgStart: 03-31-2019 End: 81-40-8135Envxeqottk Tartrate 50 mg tablet Discontinued 75 MG PO Twice daily March 31, 2019 4:13pm 2019 12:16pmStart: 03-31-2019 End: 58-73-7719cbax 75 mg by mouth twice dailyMetoprolol Tartrate Discontinued 75 MG PO Twice daily March 31, 2019 4:13pm April 20, 2019 12:16pmStart: 05-13-2018 End: 98-75-6597nyxl 1 tablet by mouth twice dailyMetoprolol Tartrate 50 mg Tablet Discontinued 50 MG PO Twice daily 60 May 13, 2018 1:00am March 31, 2019 4:13pmondansetron (ZOFRAN-ODT) disintegrating tablet 4 mg (1 source)Start: 28-39-8473qwcdqeohorx (ZOFRAN-ODT) disintegrating tablet 4 mg SITagliptin 100 mg oral tablet (9 sources)Dipeptidyl Peptidase 4 InhibitorStart: 70-17-7673xnyu 1 tablet by mouth once daily5 ml sodium chloride 9 mg/ml injection (2 sources)Start: 41-15-1040tmajbd chloride flush 0.9 % injection 10 mLStart: 11-28-2021 End: .9 % sodium chloride infusionsotalol hydrochloride 80 mg oral tablet (20 sources)AntiarrhythmicStart: 10-26-2024 End: 46-43-4338usdq 0.5 tablet by mouth three times dailysotalol (Betapace) 80 mg tablet Indications: Persistent atrial fibrillation (Multi) Take 0.5 tablets (40 mg) by mouth 3 times a day. 135 tablet 3 10/26/2024 10/26/2025 ActiveStart: 12-11-2023 End: 33-37-6694tyuz 1 tablet by mouth every twelve hourssotalol (Betapace) 80 mg tablet Take 1 tablet (80 mg) by mouth every 12 hours. 12/11/2023 10/26/2024 Discontinued (Reorder)Start: 08-21-2023 End: 88-46-1494jpak 1 tablet by mouth twice dailysotalol (sotalol AF) 120 mg tablet Indications: Persistent atrial fibrillation (Multi) Take 1 tablet (120 mg) by mouth 2 times a day. 180 tablet 3 08/21/2023 01/28/2024 Discontinued (Dose adjustment)Start: 10-75-1193bbch 1 tablet by mouth twice dailysotalol AF (Betapace AF) 120 MG tablet TAKE 1/2 TABLET TWICE A DAY BY MOUTH 03/11/2023 ActiveStart: 15-21-2063wnpp 1 tablet by mouth twice dailysotalol AF 120 mg tablet Indications: Persistent atrial fibrillation (Multi) TAKE 1/2 TABLET BY MOUTH TWICE A DAY 90 tablet 1 03/11/2023 ActiveStart: 43-25-2676gwqq 1 tablet by mouth twice dailySotalol HCl (AF) 120 MG Oral Tablet take 1/2 tablet by mouth twice daily Quantity: 90 Refills: 1 Ordered: 06-Jun-2022 Veronica Liz MD Start : 17-Feb-2022 ActiveStart: 04-20-2019 End: 25-54-8725ncdw 0.5 tablet by mouth twice dailysotalol AF 120 mg tablet Take 0.5 tablets (60 mg) by mouth 2 times a day. 0 Activetake 1 tablet by mouth every twelve hoursBetapace AF 120 MG Oral Tablet Take 1/2 tablet every 12 hours Quantity: 0 Refills: 0 Ordered: 19-Nov-2021 DO Activetake 0.5 tablet by mouth every twelve hoursSotalol HCl 120 MG 1/2 TABLET Orally every 12 hrs Active tamsulosin hydrochloride 0.4 mg oral capsule (2 sources)alpha-Adrenergic BlockerStart: 69-96-1109fdzn 1 capsule by mouth once dailytamsulosin (FLOMAX) 0.4 MG capsule Take 1 capsule by mouth daily 30 capsule 3 12/03/2021 Active Completed/Discontinued Medications MedicationDrug Class(es)DatesSig (Normalized)Sig (Original)acetaminophen 500 mg oral tablet (3 sources)Start: 11-29-2021 End: 59-23-5879zcxseebwvwlba (TYLENOL) tablet 1,000 mgStart: 11-28-2021 acetaminophen (TYLENOL) tablet 650 mgamoxicillin 875 mg / clavulanate 125 mg oral tablet (1 source)Penicillin-class AntibacterialStart: 11-28-2021 End: 20-44-4916htroihoinnz-clavulanate (AUGMENTIN) 875-125 MG per tablet 1 tabletapixaban 5 mg oral tablet (4 sources)Factor Xa InhibitorStart: 05-13-2018 End: 67-65-2712ngni 1 tablet by mouth twice dailyApixaban (Eliquis) 5 mg Tablet Discontinued 5 MG PO Twice daily 60 April 01, 2019 1:00am May 30, 2020 1:41pm50 ml calcium gluconate 20 mg/ml injection (1 source)Start: 11-29-2021 End: 09-87-0992mgromue gluconate 1000 mg in sodium chloride 50 mLcefTRIAXone (ROCEPHIN) 1,000 mg in sterile water 10 mL IV syringe (1 source)Start: 11-28-2021 End: 66-12-5504stmUPPVCujg (ROCEPHIN) 1,000 mg in sterile water 10 mL IV syringe cephalexin 500 mg oral capsule (3 sources)Cephalosporin AntibacterialStart: 30-48-8337wbax 1 capsule by mouth every eight hoursCephalexin 500 MG Oral Capsule TAKE 1 CAPSULE BY MOUTH EVERY 8 HOURS Quantity: 30 Refills: 0 Ordered: 01-Dec-2020 DO Start : 01-Dec-2020 CompleteStart: 05-14-2018 End: 73-32-1544odff 1 capsule by mouth twice dailyCephalexin 500 mg capsule Discontinued 500 MG PO Twice daily 09 01May 14, 2018 1:00am March 31, 2019 4:09pmclopidogrel 75 mg oral tablet (2 sources)P2Y12 Platelet InhibitorStart: 04-01-2019 End: 15-28-7790rcvh 1 tablet by mouth once dailyClopidogrel (Plavix) 75 mg tablet Discontinued 75 MG PO Daily 30 April 01, 2019 1:00am April 20, 2019 12:16pm1 ml dexamethasone phosphate 4 mg/ml injection (1 source)CorticosteroidStart: 11-28-2021 End: 25-00-7128wnlkxfuhtbpso (DECADRON) injection 4 mgdexamethasone 1 mg/ml / tobramycin 3 mg/ml ophthalmic suspension (1 source)Aminoglycoside Antibacterial, CorticosteroidStart: 61-49-8344hcrz 2 drop(s) into the eye(s) four times dailyTobramycin-Dexamethasone 0.3-0.1 % Ophthalmic Suspension PLACE 2 DROPS INTO BOTH EYES 4 TIMES A DAYQuantity: 5 Refills: 0 Ordered: 22-Aug-2021 DO Start : 22-Aug-2021 Complete1 ml diphenhydrAMINE hydrochloride 50 mg/ml cartridge (1 source)Histamine-1 Receptor AntagonistStart: 11-30-2021 End: 69-01-6914oragxllyjpCNETC (BENADRYL) injection 25 mgfamotidine (PEPCID) 20 mg in sodium chloride (PF) 10 mL injection (1 source)Start: 11-28-2021 End: 94-85-3848vnowjwnekj (PEPCID) 20 mg in sodium chloride (PF) 10 mL injection gadoteridol (PROHANCE) injection 20 mL (1 source)Start: 11-28-2021 End: 33-55-8083vilivygkuxt (PROHANCE) injection 20 mLiopamidol (ISOVUE-370) 76 % injection 90 mL (1 source)Start: 11-28-2021 End: 91-75-8746qroqafahv (ISOVUE-370) 76 % injection 90 mL5 ml levETIRAcetam 100 mg/ml injection (1 source)Start: 11-28-2021 End: 61-26-3689turJAHYNhrxmw (KEPPRA) injection 500 mg100 ml magnesium sulfate 10 mg/ml injection (2 sources)Start: 11-29-2021 End: 30-29-5013lntxjiirx sulfate 1000 mg in dextrose 5% 100 mL IVPBStart: 11-28-2021 End: 35-66-1768ijcurercm sulfate 4000 mg in 100 mL IVPB premixmetFORMIN hydrochloride 500 mg oral tablet (2 sources)BiguanideStart: 05-13-2018 End: 32-54-9077xojl 1 tablet by mouth twice daily at mealtimeMetformin 500 mg Tablet Discontinued 500 MG PO Twice daily with meals 60 May 13, 2018 1:00amMarch 31, 2019 4:09pmmethylPREDNISolone 4 MG Oral Tablet Therapy Pack (1 source)Start: 55-74-8930srfemdBDDWJDKwkgwi 4 MG Oral Tablet Therapy Pack TAKE 6 TABLETS ON DAY 1 DIRECTED ON PACKAGE ANDDECREASE BY 1 TAB EACH DAY FOR A TOTAL OF 6 DAYS Quantity: 21 Refills: 0 Ordered: 22-Aug-2021 DO Start : 22-Aug-2021 Complete1 ml morphine sulfate 2 mg/ml cartridge (1 source)Opioid AgonistStart: 11-28-2021 End: mg, IntraVENous, ONCE, 1 dose, On Kimmie 11/28/21 at 0345mupirocin 0.02 mg/mg topical ointment (1 source)RNA Synthetase Inhibitor AntibacterialStart: 58-05-1495Lhovrkfxc 2 % External Ointment APPLY TOPICALLY 3 TIMES DAILY Quantity: 22 Refills: 0 Ordered: 01-Dec-2020 DO Start : 01-Dec-2020 CompleteniCARdipine (CARDENE) 20 mg in 0.9 % sodium chloride 200 mL solution (1 source)Start: 11-28-2021 End: 15-80-6741xaXVEqjpuei (CARDENE) 20 mg in 0.9 % sodium chloride 200 mL solutionnitroglycerin 0.4 mg sublingual tablet (10 sources)Nitrate VasodilatorStart: 81-05-7648Ydawuzqcwjmzs 0.4 MG Sublingual Tablet Sublingual DISSOLVE 1 TABLET UNDER THE TONGUE NEEDED Quantity: 25 Refills: 0 Ordered: 26-Dec-2021 DO Start : 26-Dec-2021 ActiveStart: 04-01-2019 End: 67-28-1929Zrnxorswkstar 0.4 mg Tablet, Sublingual Discontinued 0.4 MG SUBLINGUAL Q5M as needed for Chest Pain25 April 01, 2019 1:00am July 31, 2020 1:34pmofloxacin 3 mg/ml ophthalmic solution (2 sources)Quinolone AntimicrobialStart: 11-30-2021 End: 21-71-7091rtfouyxdx (OCUFLOX) 0.3 % solution 5 dropStart: 11-28-2021 End: 80-80-3813divkovags (OCUFLOX) 0.3 % solution 10 dropomeprazole 20 mg delayed release oral capsule (2 sources)Proton Pump InhibitorStart: 05-30-2020 End: 66-45-0623fthu 1 capsule by mouth once dailyOmeprazole 20 mg Capsule,Delayed Release(Dr/Ec) Discontinued 20 MG PO Daily May 30, 2020 1:00am July 31, 2020 1:34pmpolysaccharide iron complex 150 mg oral capsule (2 sources)Start: 04-20-2019 End: 15-79-3149Vdsboetwrvhuaz Iron Complex 150 mg iron capsule Discontinued 150 MG PO Every 48 hours 15 April 20, 2019 1:00am June 12, 2020 2:24pm2 ml prochlorperazine 5 mg/ml injection (1 source)PhenothiazineStart: 11-30-2021 End: 85-02-1069zecsbonrlapwqavm (COMPAZINE) injection 10 mgsulfamethoxazole 800 mg / trimethoprim 160 mg oral tablet (1 source)Dihydrofolate Reductase Inhibitor Antibacterial, Sulfonamide AntimicrobialStart: 18-60-3954wsyl 1 tablet by mouth twice daily Sulfamethoxazole-Trimethoprim 800-160 MG Oral Tablet TAKE 1 TABLET BY MOUTH TWICE A DAY FOR 1 WEEK Quantity: 14 Refills: 0 Ordered: 22-Aug-2021 DO Start : 22-Aug-2021 CompletetraMADol hydrochloride 50 mg oral tablet (1 source)Opioid AgonistStart: 56-41-1662payd 1 tablet by mouth every four hours as needed for paintraMADol HCl - 50 MG Oral Tablet TAKE ONE TABLET BY MOUTH EVERY 4 HOURS NEEDED FOR PAIN Quantity: 20 Refills: 0 Ordered: 01-Dec-2020 DO Start : 01-Dec-2020 Completevancomycin (VANCOCIN) 1750 mg in sodium chloride 0.9 % 500 mL IVPB (1 source)Start: 11-28-2021 End: 05-07-5266cgefhjckqn (VANCOCIN) 1750 mg in sodium chloride 0.9 % 500 mL IVPB Problems Active Problems Problem ClassificationProblemDateDocumented DateEpisodic/ChronicAcquired foot deformities (4 sources)Right foot drop; Translations: [Foot drop, right foot]01-07-2024 EpisodicAcute cerebrovascular disease (19 sources)Cerebrovascular accident; Translations: [Cerebral infarction, unspecified]Onset: 32-75-9847FqndnxbEfpgw myocardial infarction (2 sources)Acute myocardial infarction of inferior wall; Translations: [ST elevation (STEMI) myocardial infarction involving other coronary artery of inferior wall]07-91-9675MtclnzsUjjutlgbz infection; unspecified site (2 sources)Bacteremia; Translations: [Bacteremia]17-41-6199JlnexxxzVyffeuj tract disease (4 sources)Cholangiectasis; Translations: [Other specified diseases of biliary tract]03-58-8709FysafvgArovmkd tract disease (2 sources)Common bile duct calculus; Translations: [Calculus of bile duct without cholangitis or cholecystitis without obstruction]72-84-8772Bvljkwpo Cardiac dysrhythmias (20 sources)Paroxysmal atrial fibrillation; Translations: [Cardiac arrhythmia, unspecified]Onset: 70-09-3861UehnxnlNfemlyw obstructive pulmonary disease and bronchiectasis (6 sources)Chronic obstructive pulmonary disease, unspecified; Translations: [Chronic obstructive lung disease]Onset: 25-83-9741LspqfccHxntmvld atherosclerosis and other heart disease (20 sources)Single coronary vessel disease; Translations: [Coronary atherosclerosis of unspecified type of vessel, [place] or graft]Onset: 09-25-2021 41-72-2501AouwrtaKczdaxc on above:Problem List clean-up per request of Phys. EHR CmteCoronary atherosclerosis and other heart disease (2 sources)Past history of procedure; Translations: [Coronary angioplasty status]74-21-2965NmzofgflHnmgulluyj and other anemia (2 sources)Anemia due to blood loss; Translations: [Iron deficiency anemia secondary to blood loss (chronic)]61-05-6793OoicyheGqsguyikox and other anemia (20 sources)Anemia; Translations: [Anemia, unspecified]Onset: 89-74-5274Rmtjqhdn Comment on above:Problem List clean-up per request of Phys. EHR CmteDeficiency and other anemia (2 sources)Microcytic anemia; Translations: [Iron deficiency anemia, unspecified]EpisodicDeficiency and other anemia (6 sources)Anemia, unspecified; Translations: [ANEMIA UNSPECIFIED]Onset: 81-49-4363ThgmaybfZbalzanr mellitus with complications (3 sources)Polyneuropathy due to diabetes mellitus; Translations: [Diabetes 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]03-17-2024 ChronicDiabetes mellitus without complication (5 sources)Type 2 diabetes mellitus without complication; Translations: [Type 2 diabetes mellitus without complications]Onset: 88-71-8111PdleegnTsxrqqi on above:Problem List clean-up per request of Phys. EHR CmteDisorders of lipid metabolism (20 sources)Hyperlipidemia; Translations: [Other and unspecified hyperlipidemia] Onset: 008526-03-2459HedffnsLcpyznv on above:Problem List clean-up per request of Phys. EHR CmteE Codes: Fall (2 sources)Fall on same level, unspecified, initial encounter; Translations: [Fall on same level from slipping, tripping and stumbling with subsequent striking against other object, initial encounter]Onset: 63-30-1004Frbxxilm Esophageal disorders (1 source)Gastro-esophageal reflux disease without esophagitis; Translations: [GERD WITHOUT ESOPHAGITIS]Onset: 91-79-8721GxkhdyiCnlwyiqng hypertension (20 sources)Essential hypertension; Translations: [Unspecified essential hypertension]Onset: 64-62-0612XbygjzkRqjby and electrolyte disorders (2 sources)Hyponatremia; Translations: [Hypo-osmolality and hyponatremia]Onset: 62-53-5191EovsjvnjMscdcyao; including migraine (4 sources)Headache; including migraine; Translations: [HEADACHE UNSPECIFIED] Onset: 29-82-7204Ekpqzxkocgofg and screening for infectious disease (8 sources)Patient encounter status; Translations: [Other specified vaccination] EpisodicLate effects of cerebrovascular disease (5 sources)Dysphagia following cerebral infarction; Translations: [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 EHR Cmte Occlusion or stenosis of precerebral arteries (8 sources)Right carotid artery stenosis; Translations: [Occlusion and stenosis of right carotid artery]Onset: 248760-02-4678AddngvuRuuxarzcntzwoo (1 source)Unspecified osteoarthritis, unspecified site; Translations: [UNSPECIFIED OSTEOARTHRITIS UNS SITE]Onset: 45-33-2040QinldrgUoxnv aftercare (8 sources)Drug therapy finding; Translations: [Long-term (current) use of other medications]EpisodicOther aftercare (1 source)snf (current) use of aspirin; Translations: [SHELTER CURRENT USE OF ASPIRIN]Onset: 89-55-1434VzpqthqpIpkze aftercare (3 sources)Other nursing home (current) drug therapy; Translations: [OTH SHOE STOCK ASSOCIATE CURRENT DRUG THERAPY]Onset: 98-80-6847SmdyhivyRsimh aftercare (16 sources)Taking high risk medication; Translations: [Other 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 teacher (current) drug therapy]Onset: 821136-09-5622TmhljwblKxzhq circulatory disease (1 source)Personal history of transient ischemic attack (TIA), and cerebral infarction without residual deficits; Translations: [PERS HX TIA AND CI NO RESID DEFICIT]Onset: 88-02-7672YrbxzozqGxrpl hematologic conditions (1 source)Other specified abnormalities of plasma proteins; Translations: [OTH SPEC ABNORM PLASMA PROTEINS]Onset: 07-78-0450UczowvjkRftwq injuries and conditions due to external causes (1 source)Unspecified injury of head, initial encounter; Translations: [UNSPECIFIED INJURY HEAD INITIAL ENC]Onset: 05-40-2723XoxvfztiYnbyn lower respiratory disease (1 source)Shortness of breathOnset: 88-65-5535BkhluoqpXltzd nutritional; endocrine; and metabolic disorders (1 source)Morbid (severe) obesity due to excess calories; Translations: [MORBID SEVERE OBES D/T EXCESS DELVIN]Onset: 26-26-0193KkaiftcFbcxl nutritional; endocrine; and metabolic disorders (1 source)Body mass index (BMI) 30.0-30.9, adult; Translations: [BODY MASS INDEX BMI 30.0-30.9 ADULT]Onset: 05-84-5484QjrprdwNglhk screening for suspected conditions (not mental disorders or infectious disease) (8 sources)Hormone level - finding; Translations: [Other specified abnormal findings of blood chemistry]Onset: 092126-72-7663XjitpjmoXnbbgfh on above: Problem List clean-up per request of Phys. EHR CmteOther skin disorders (4 sources)Asteatosis cutis; Translations: [Xerosis cutis]18-70-7216Doexmgod Otitis media and related conditions (2 sources)Otitis media; Translations: [Unspecified nonsuppurative otitis media, left ear]Onset: 86-42-5600TfidrhddMhtkharthb and visceral atherosclerosis (3 sources)Peripheral vascular disease, unspecified; Translations: [Peripheral vascular disease]Onset: 198576-94-9777NdindjcAspqrie on above:Problem List clean-up per request of Phys. EHR CmteResidual codes; unclassified (1 source)Acquired absence of other specified parts of digestive tract; Translations: [ACQ ABSENCE OTH PART DIGESTV TRACT]Onset: 28-67-3847Pyihrsnf Residual codes; unclassified (4 sources)Body mass index 20-24 - normal; Translations: [Body mass index (BMI) 24.0-24.9, adult]Onset: 289688-31-4989XyxvrcxjLklwsaxz codes; unclassified (2 sources)Body mass index (BMI) 24.0-24.9, adult; Translations: [Body mass index (BMI) 24.0-24.9, adult]Onset: 06-78-3349HfepdjczWuuozqtry and history of mental health and substance abuse codes (20 sources)Ex-smoker; Translations: [Personal history of tobacco use]Onset: 393113-55-8307RuqfowxcYuepynn on above:QUIT MAR 2019;Substance-related disorders (3 sources)Nicotine dependence, unspecified, uncomplicated; Translations: [Tobacco user]Onset: 601318-39-6962VyyykipInbkhnh (3 sources)Syncope and collapse; Translations: [Syncope]Onset: 04-23-2022 09-01-5911JhzpqilkPcpjrdh on above:Problem List clean-up per request of Phys. EHR CmteTransient cerebral ischemia (10 sources)Transient cerebral ischemic attack, unspecified; Translations: [Transient cerebral ischemia]Onset: 41-13-4417FakmoatSxldjptksqow (1 source)snf (current) use of oral hypoglycemic drugsOnset: 06-10-2018 Unclassified (1 source)CONTACT W/AND (SUSP) EXPOS COVID-19; Translations: [CONTACT W/AND (SUSP) EXPOS COVID-19]Onset: 12-74-5159Wgjjczoglwib (2 sources)Other persistent atrial fibrillation; Translations: [Other persistent atrial fibrillation]Onset: 01-29-2023 Past or Other Problems Problem ClassificationProblemDateDocumented DateEpisodic/ChronicAcute bronchitis (1 source)Acute bronchiolitis, unspecified; Translations: [ACUTE BRONCHIOLITIS UNSPECIFIED]Onset: 17-77-6999NfglfypgVajwnyae of upper limb (2 sources)Displaced fracture of proximal phalanx of left little finger, subsequent encounter for fracture with routine healing; Translations: [Displaced fracture of proximal phalanx of left little finger, initial encounter for closed fracture]Onset: 08-29-2021 Resolved: 52-49-6713EsdoxmzvIpmvwpnufjzm; infection of eye (except that caused by tuberculosis or sexually transmitteddisease) (1 source)Unspecified conjunctivitis; Translations: [UNSPECIFIED CONJUNCTIVITIS] Onset: 13-93-8518FenoiyspIzch wounds of head; neck; and trunk (4 sources)Laceration without foreign body of left eyelid and periocular area, initial encounter; Translations: [LAC NO FB LT EYELID PERIOCULAR INIT]Onset: 81-34-1589CygfhazrKhdls aftercare (1 source)snf (current) use of oral hypoglycemic drugs; Translations: [SHOE STOCK ASSOCIATE USE ORAL HYPOGLYCEMIC DX]Onset: 09-25-4154EdmgzttkKozqz connective tissue disease (2 sources)Pain in left handOnset: 08-29-2021 Resolved: 91-96-0787QujmrxbkMfckh injuries and conditions due to external causes (1 source)Unspecified foreign body in respiratory tract, part unspecified causing other injury, initial encounter; Translations: [UNS FB RESP TRACT UNS OTH INJ INIT]Onset: 10-57-5091YtliuvdoIldrx injuries and conditions due to external causes (1 source)Other specified injuries of head, initial encounter; Translations: [OTH SPEC INJURIES HEAD INITIAL ENC]Onset: 22-74-9961WpzijyhuSjdju lower respiratory disease (1 source)Shortness of breath; Translations: [SHORTNESS OF BREATH]Onset: 16-47-7338WsjkhuazNcenj nutritional; endocrine; and metabolic disorders (19 sources)Overweight in adulthood with body mass index of 25 or more but less than 30; Translations: [Overweight]Onset: 595443-86-0228TwmhqoixLummr nutritional; endocrine; and metabolic disorders (2 sources)Body mass index (BMI) 26.0-26.9, adult; Translations: [Body mass index (BMI) 26.0-26.9, adult]Onset: 44-29-6036HnllwzezXczzl nutritional; endocrine; and metabolic disorders (2 sources)Body mass index (BMI) 27.0-27.9, adult; Translations: [Body mass index (BMI) 27.0-27.9, adult]Onset: 84-76-6826HwnfimkrTzhfd upper respiratory disease (3 sources)Nasal congestion; Translations: [NASAL CONGESTION]Onset: 08-22-2021 EpisodicOther upper respiratory infections (1 source)Acute pharyngitis, unspecified; Translations: [ACUTE PHARYNGITIS UNSPECIFIED]Onset: 39-54-5422IghvadzuMoytzdrwdtrj (7 sources)Onset: 01-29-2023 Resolved: Results Test NameValueInterpretationReference RangeFacilityABO/Rhon [id number]/Rh PositiveInvalid Interpretation CodeOhiohealth Grady Memorial HospitalComment on above: Performed By: #### [id number] #### [facility] [address], [place] [address]PCA/Rh History Checkon 84-72-6070RKB/Rh History CheckPatient discharged priorMcKitrick HospitalComment on above:Performed By: #### [id number] #### [facility] [address], [place] [address]JTEUxd 47-05-4522FHPW Gel InterpNegativeNoBarberton Citizens HospitalComment on above:Performed By: #### [id number] #### [facility] [address], [place] [address]DWNfh 58-38-9368Siouz gap [Moles/Vol]10 mmol/LNormal6-16Ohio[facility] Grady Memorial HospitalComment on above:Performed By: #### [id number] #### [facility] [address] [place], [place] [address]QKA/Creat Ratio9 No ZurjlGgi62-13KqwwnjOhiohealth Grady Memorial Hospital Comment on above:Performed By: #### [id number] #### [facility] [address] [place], [place] [address]Xkmczes [Mass/Vol]8.5 mg/dLLow8.9-11.1FSt. Anthony's HospitalComment on above:Performed By: #### [id number] #### [facility] [address], [place] [address]Wivwubhn [Moles/Vol]100 mmol/CMdt343-267ObqwxcOhiohealth Grady Memorial HospitalComment on above:Performed By: #### [id number] #### [facility] [address] [place], [place] [address]CG0 [Moles/Vol]29 mmol/GGzrvru49-73ShjeiyOhiohealth Grady Memorial Hospital Comment on above:Performed By: #### [id number] #### [facility] [address], [place] [address]Ymrejmypms [Mass/Vol]1.6 mg/dLHigh0.5-1.3FSt. Anthony's HospitalComment on above:Performed By: #### [id number] #### [facility] [address], [place] [address]Mcpezpt [Mass/Vol]148 mg/vKSdgcne97-899AuxtrdOhiohealth Grady Memorial HospitalComment on above:Performed By: #### [id number] #### [facility] [address], [place] [address]Vswgkfmde [Moles/Vol]4.6 mmol/LNormal3.5-5.3FSt. Anthony's HospitalComment on above:Performed By: #### [id number] #### [facility] [address] [place], [place] [address]Hjkzkd [Moles/Vol]134 mmol/BBvq758-196UnmjjrOhiohealth Grady Memorial HospitalComment on above:Performed By: #### [id number] #### [facility] [address], [place] [address]Szdr nitrogen [Mass/Vol]15 mg/dLNormal5-21Ohio[facility] Grady Memorial HospitalComment on above:Performed By: #### [id number] #### [facility] [address] [place] [address] ID#on [id number]#[id number] Interpretation CodeOhiohealth Grady Memorial HospitalComment on above:Performed By: #### [id number] #### [facility] [address] [place] [address]OTT w/ Auto Diffon 09-20-7804Bbxrfspf Absolute0.0 E9/LNormal 0.0-0.2FSt. Anthony's HospitalComment on above:Performed By: #### [id number] #### [facility] [address] [place] [address]Sjtvrlsyg/100 WBC (Bld)0.5 %Normal0.0-2.0Ohio[facility] Grady Memorial HospitalComment on above:Performed By: #### [id number] #### [facility] [address] [place] [address]Dnu Absolute0.3 E9/LNormal0.0-0.5FSt. Anthony's Hospital Comment on above:Performed By: #### [id number] #### [facility] [address] [place] [address]Nedqamqmhqv/100 WBC (Bld)3.1 %Normal0.0-8.0[facility] Memorial HospitalComment on above:Performed By: #### [id number] #### [facility] [address] [place] [address]Kpoqnkokfja distribution width (RBC) [Ratio]17.6 %High10.9-14.2 [facility] Memorial HospitalComment on above:Performed By: #### [id number] #### [facility] [address] [place] [address]Yfdpoxndqw (Bld) [Volume fraction]31.4 %Low37.7-49.0[facility] Gr[facility] Memorial HospitalComment on above:Performed By: #### [id number] #### [facility] [address] [place] [address]Pottkfjucg (Bld) [Mass/Vol]11.0 g/dLLow13.5-17.5FSt. Anthony's HospitalComment on above:Performed By: #### [id number] #### [facility] [address] [place] [address]Bzqai Absolute0.8 E9/LLow1.0-4.0[facility] Comment on above:Performed By: #### [id number] #### [facility] [address] [place] [address]Qjrurcipxud/100 WBC (Bld)9.4 %Low14.0-50.0[facility] Grady Memorial HospitalComment on above:Performed By: #### [id number] #### [facility] [address] [place] [address]JLD (RBC) [Entitic mass]34.1 wbKznt43.0-34.0[facility] Memorial HospitalComment on above:Performed By: #### [id number] #### [facility] [address] [place] [address]LNBR (RBC) [Mass/Vol]35.0 g/tGGjtfyf64.4-36.0[facility] Memorial HospitalComment on above:Performed By: #### [id number] #### [facility] [address] [place] [address]XEK (RBC) [Entitic vol]97.5 yIEpvpst54.0-100.0[facility] Memorial HospitalComment on above:Performed By: #### [id number] #### [facility] [address] [place] [address]Yiqk Absolute0.7 E9/LNormal0.2-1.0[facility] Comment on above:Performed By: #### [id number] #### [facility] [address] [place] [address]Rnayoipgr/100 WBC (Bld)7.5 %Normal4.0-14.0[facility] Memorial HospitalComment on above:Performed By: #### [id number] #### [facility] [address] [place], [place] [address]Kjfpyf Absolute7.1 E9/LNormal2.0-7.5FSt. Anthony's Hospital Comment on above:Performed By: #### [id number] #### [facility] [address], [place] [address]Juczey Auto79.5 %High36.0-75.0[facility] Comment on above:Performed By: #### [id number] #### [facility] [address] [place], [place] [address]Cnxjctgu783.0 E9/LQktipb804.0-500.0[facility] Comment on above:Performed By: #### [id number] #### [facility] [address], [place] [address]Hesargif mean volume (Bld) [Entitic vol]7.2 fLNormal6.4-10.8 [facility] Memorial HospitalComment on above:Performed By: #### [id number] #### [facility] [address], [place] [address]GXB3.2 E12/LLow4.3-5.9Ohio[facility] Gr[facility] Memorial HospitalComment on above:Performed By: #### [id number] #### [facility] [address] [place] [address]DCS3.9 E9/LNormal4.0-11.0[facility] Memorial HospitalComment on above:Performed By: #### [id number] #### [facility] [address], [place] [address]HS Abdomen/Pelvis w/ Contraston [id number] Abdomen/Pelvis w/ ContrastExam Date/Time: 01/12/2025 14:20 EDT Reason for Exam: ABDOMINAL TRAUMA;Trauma Report PLEASE SEE CT Chest w/ Contrast REPORT DATED: 01/12/2025. All CT scans at this facility use dose modulation, iterative reconstruction, and/or weight based dosing when appropriate to reduce radiation dose to as low as reasonably achievable. GFR (mL/min/1/73m2) na Contrast: Isovue 300 Contrast amount in ml's: 130.00 Rectal Contrast Given? No Ordering Provider: Gagan Cates FINAL REPORT Dictated: 01/12/2025 2:41 pm Bharat Taylor MD Signed (Electronic Signature): 01/12/2025 2:41 pm Signed by: Bharat Taylor MD Transcribed by: MARLYS Technologist: [facility] Chest w/ Contraston [id number] Chest w/ ContrastExam Date/Time: 01/12/2025 14:20 EDT Reason for Exam: CHEST TRAUMA, MOD-SEVERE;Trauma Report IMPRESSION: NO ACUTE FRACTURE OR RECENT POSTTRAUMATIC COMPLICATION IDENTIFIED. APPROXIMATELY 4 CM LEFT HILAR MASS SUSPICIOUS FOR MALIGNANCY WITH MILD SURROUNDING POSTOBSTRUCTIVE INFILTRATE. CHRONIC FINDINGS, NOTED. EXAM: CT Chest w/ Contrast, CT Abdomen/Pelvis w/ Contrast, CT Spine Thoracic, CT Spine Lumbar DATE: 01/12/2025 1:52 PM CLINICAL HISTORY: Trauma, CHEST TRAUMA, MOD-SEVERE. COMPARISON: None available. TECHNIQUE: Spiral imaging was obtained of the chest, abdomen and pelvis after the uneventful infusion of IV contrast. Routine multiplanar reformatted reconstructions were performed; including dedicated reconstructions of the thoracic and lumbar spine. All CT scans at this facility use dose modulation, iterative reconstruction, and/or weight based dosing when appropriate to reduce radiation dose to as low as reasonably achievable. Unless otherwise stated, incidental findings identified in this report do not require routine follow-up imaging. CHEST CT FINDINGS: Lungs and pleura: Approximately 4 cm superior left hilar mass occluding the superior segment bronchus with mild to moderate distal airspace opacities and septal thickening. No findings to suggest a pulmonary contusion, pleural effusion, or pneumothorax. Mediastinum and lymph nodes: Mild to moderate left suprahilar lymphadenopathy, thought to the superior hilar mass. No pathologically enlarged mediastinal, right hilar, or axillary lymph nodes. Heart: Not enlarged. Coronary artery calcifications are present. Small pericardial effusion. Thoracic aorta: Mildly ectatic and unfolded with mild atherosclerotic plaquing. There is no dissection. Pulmonary arteries: Normal in caliber without central filling defects identified to suggest significant pulmonary emboli. Thyroid: Unremarkable. Esophagus: Unremarkable. Report Musculoskeletal: No acute osseous findings identified. ABDOMEN AND PELVIS CT FINDINGS: Liver: No enlargement, significant fatty infiltration, suspicious mass or lesion. Biliary: The gallbladder has been removed. Mild predominantly extrahepatic biliary dilatation, most consistent with chronic reservoir effect. Pancreas: No suspicious mass, organized fluid collection, surrounding inflammation, or abnormal pancreatic ductal dilatation. Spleen: Unremarkable. Adrenals: Unremarkable. Kidneys: No hydronephrosis, significant urinary tract calculi, or suspicious mass. Small nonenhancing fluid density cysts. GI tract: No abnormal dilation, wall thickening, or suspicious mass. Normal appendix. Lymph nodes: No pathologically enlarged lymph nodes. Vasculature: Mild ectasia distal abdominal aorta to approximately 2.6 cm. 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 Mesentery/peritoneum/retroperitoneum: No ascites, organized fluid collection, inflammatory changes, or suspicious mass. Pelvis: The urinary bladder is unremarkable. Musculoskeletal: No acute osseous findings identified. THORACIC SPINE CT FINDINGS: There is no acute fracture, dislocation, evidence of instability, or acute paraspinal soft tissue abnormalities identified. Mild to moderate chronic T6 and T7 compression fractures and mild degenerative changes are present. LUMBAR SPINE CT FINDINGS: There is no fracture, dislocation, evidence of instability, or acute paraspinal soft tissue abnormalities identified. Mild rotary levoscoliosis and moderate degenerative changes are present. GFR (mL/min/1/73m2) na Contrast: Isovue 300 Contrast amount in ml's: 130.00 Ordering Provider: Gagan Cates FINAL REPORT Dictated: 01/12/2025 3:01 pm Bharat Taylor MD Signed (Electronic Signature): 01/12/2025 3:01 pm Signed by: Bharat Taylor MD Transcribed by: MARLYS Technologist: LouiseOhiohealth Grady Memorial HospitalCT Head or Brain w/o Contraston [id number] Head or Brain w/o ContrastExam Date/Time: 01/12/2025 14:14 EDT Reason for Exam: HEAD TRAUMA, MOD-SEVERE;Other (please specify) Report IMPRESSION: NO ACUTE INTRACRANIAL PROCESS SUSPECTED. EXAM: CT Head or Brain w/o Contrast DATE: 01/12/2025 1:52 PM CLINICAL HISTORY: HEAD TRAUMA, MOD-SEVERE. Technologist Comments: pt c/o fall. +hit head. denies LOC, thinners. left rib pain and neck pain. hx of stroke/ cholecystectomy. COMPARISON: None available. TECHNIQUE: Routine. All CT scans at this facility use dose modulation, iterative reconstruction, and/or weight based dosing when appropriate to reduce radiation dose to as low as reasonably achievable. FINDINGS: There is no intracranial hemorrhage, mass effect, midline shift, extra-axial collection, evidence of hydrocephalus, skull fracture, or a recent ischemic infarct identified. Chronic moderate to large sized right and moderate sized left middle cerebral artery distribution ischemic infarcts, mild generalized volume loss, and chronic-appearing matter changes are noted. Fluid within some inferior left mastoid air cells. The right mastoid air cells and visualized paranasal sinuses are essentially clear. Moderate debris noted in both external auditory canals, more prominently on the right. Ordering Provider: Gagan Cates FINAL REPORT Dictated: 01/12/2025 2:20 pm Bharat Taylor MD Signed (Electronic Signature): 01/12/2025 2:20 pm Signed by: Bharat Taylor MD Transcribed by: MARLYS Technologist: [facility] HospitalCT [facility] Cervical w/o Contraston [id number] Spine Cervical w/o ContrastExam Date/Time: 01/12/2025 14:14 EDT Reason for Exam: NECK TRAUMA, DANGEROUS INJURY MECHANISM;Trauma Report IMPRESSION: NO FRACTURE OR EVIDENCE OF CERVICAL SPINE INJURY IDENTIFIED. EXAM: CT Spine Cervical w/o Contrast DATE: 01/12/2025 1:52 PM CLINICAL HISTORY: Trauma, NECK TRAUMA, DANGEROUS INJURY MECHANISM. Technologist Comments: pt c/o fall. +hit head. denies LOC, thinners. left rib pain and neck pain. hx of stroke/ cholecystectomy. COMPARISON: None available. TECHNIQUE: Spiral unenhanced imaging was obtained of the cervical spine, with routine reconstructions performed. All CT scans at this facility use dose modulation, iterative reconstruction, and/or weight based dosing when appropriate to reduce radiation dose to as low as reasonably achievable. FINDINGS: The spine is visualized from the craniovertebral junction through the T1-T2 level. There is no fracture, dislocation, or acute paraspinal soft tissue abnormalities identified. Moderate degenerative changes with multilevel mild to moderate central spinal stenosis and neural foraminal narrowing is noted. Moderately extensive left and moderate right carotid bifurcation calcified plaquing. Nonspecific ill-defined opacity medial left lung apex with septal thickening (see concurrent chest CT report). Ordering Provider: Gagan Cates FINAL REPORT Dictated: 01/12/2025 2:27 pm Bharat Taylor MD Signed (Electronic Signature): 01/12/2025 2:27 pm Signed by: Bharat Taylor MD Transcribed by: MARLYS Technologist: [facility] Clinical Summaryon [id number] Clinical SummaryED Clinical Summary [place] [id number] ED Clinical Summary Person Information Name: SHAHRZAD EDGAR/New_Omar Age: 79 Years : 1945 Sex: Male Language: Mauritanian PCP: Zachariah Ochoa MD Marital Status: Visit Id: Visit Reason: Rib/trunk pain-swelling; Trauma - minor; Fall; Chest pain; fall Speciality: Acuity: 2 Enc Type: Emergency Med Service: Emergency Arrival: 01/12/2025 13:16:51 Discharge: 01/12/2025 16:05:39 LOS: 000 02:49 Checkin: 01/12/2025 13:16:51 Checkout: 01/12/2025 16:05:39 Dispo Type: Left Against Medical Advice EVENTS: Event Name Event Status Request Date/Time Start Date/Time Complete Date/Time Arrive Complete 01/12/2025 13:16:51 01/12/2025 13:16:51 01/12/2025 13:16:51 Document Home Meds Request 01/12/2025 13:16:51 Triage Complete 01/12/2025 13:16:51 01/12/2025 13:25:30 01/12/2025 13:25:30 Bed Assign Complete 01/12/2025 13:16:51 01/12/2025 13:16:51 01/12/2025 13:16:51 Dr Exam Complete 01/12/2025 13:16:51 01/12/2025 13:18:48 01/12/2025 13:18:48 RN Exam Complete 01/12/2025 13:16:51 01/12/2025 13:40:08 01/12/2025 13:40:08 Registration Complete 01/12/2025 13:18:48 01/12/2025 14:57:59 01/12/2025 14:57:59 Dr Exam Complete 01/12/2025 13:22:06 01/12/2025 13:22:06 01/12/2025 13:22:06 EKG Complete 01/12/2025 13:22:33 01/12/2025 13:27:29 NPO Request 01/12/2025 13:23:24 Pending Labs Request 01/12/2025 13:23:24 Lab Request 01/12/2025 13:23:24 Urine Collect Request 01/12/2025 13:23:24 Patient Care Request 01/12/2025 13:23:24 CT Complete 01/12/2025 13:23:24 01/12/2025 13:52:04 01/12/2025 14:20:43 X-Ray Complete 01/12/2025 13:23:24 01/12/2025 13:30:07 01/12/2025 13:51:45 Blood Collect Request 01/12/2025 13:23:24 Meds Admin Complete 01/12/2025 13:23:46 01/12/2025 13:43:21 X-Ray Complete 01/12/2025 13:32:59 01/12/2025 13:52:06 01/12/2025 13:52:42 Trauma II Request 01/12/2025 13:34:07 Fall Risk Request 01/12/2025 13:40:09 Wet Read Request 01/12/2025 13:51:45 Pending Labs Complete 01/12/2025 14:00:14 01/12/2025 14:00:14 01/12/2025 14:26:55 Lab Complete 01/12/2025 14:00:14 01/12/2025 14:00:14 01/12/2025 14:26:55 Reg Complete Request 01/12/2025 14:57:59 Reg Bed Request Complete 01/12/2025 14:57:59 01/12/2025 14:57:59 01/12/2025 14:57:59 Discharge Complete 01/12/2025 16:02:50 01/12/2025 16:09:43 01/12/2025 16:09:43 Transfer Complete 01/12/2025 16:09:43 01/12/2025 16:09:43 01/12/2025 16:09:43 ADDRESS: [address] [place] [id number] PHYS DOC NOTES: MEDICAL INFORMATION: Prescriptions Given: PATIENT EDUCATION INFORMATION: Instructions: Rib Contusion; Cervical Strain and Sprain Rehab; Pulmonary Nodule; Acute Kidney Injury, Adult Follow up: With: Address: When: Travis Medellin [facility], [address] [place] [address] In 3 days 01/15/2025 Comments: Please call hematology oncology office for close outpatient follow-up regarding new onset left lungmass as discussed. Continue to monitor symptoms. Return to ED if symptoms worsen or new symptoms arise. With: Address: When: Zachariah Ochoa [facility] [facility], [place] [address] [place] [address] Business (1) In 3 days 01/15/2025 Comments: Please call primary care provider for close outpatient follow-up regarding fall as well as acute kidney injury, rib contusion, neck strain. Please continue to monitor symptoms. Return to ED if symptoms worsen or new symptoms arise. DIAGNOSIS: KYLE (acute kidney injury); Accidental fall; Contusion of rib on left side; Left against medical advice; Mass of left lung; Neck strainCleveland Clinic Marymount Hospital CenterED Patient Summaryon [id number] Patient SummaryED Patient Summary [place] [id number] Patient Discharge Instructions Person Information Name: SHAHRZAD EDGAR Age: 79 Years Arrival Date: 01/12/2025 13:16:51 Discharge Diagnosis: KYLE (acute kidney injury); Accidental fall; Contusion of rib on left side; Left against medical advice; Mass of left lung; Neck strain Primary Care Physician: Zachariah Ochoa MD Provider Information Primary Provider: Faustino Wiley MD Advanced Hand Winder:Darryn GAGE, Gagan Quinn The exam and treatment you received in the Emergency Department were for an urgent problem and are not intended as complete care. It is important that you follow up with a doctor, nurse practitioner,or physician???s asset protection assistant for ongoing care. If your symptoms become worse or you do not improve asexpected and you are unable to reach your usual health care provider, you should return to the Emergency Department. We are available 24 hours a day. SHAHRZAD EDGAR has been given the following list of patient education materials, prescriptions and follow-up instructions: Follow-up Instructions: With: Address: When: Travis Medellin [facility], [address] [place] [address] [place] [address] In 3 days 01/15/2025 Comments: Please call hematology oncology office for close outpatient follow-up regarding new onset left lungmass as discussed. Continue to monitor symptoms. Return to ED if symptoms worsen or new symptoms arise. With: Address: When: Zachariah Ochoa [address] [facility], [place] [address] [place] [address] [facility] (1) In 3 days 01/15/2025 Comments: Please call primary care provider for close outpatient follow-up regarding fall as well as acute kidney injury, rib contusion, neck strain. Please continue to monitor symptoms. Return to ED if symptoms worsen or new symptoms arise. In the event that this physician does not participate in your insurance network, please consult with your insurance company to find a nearby participating provider. Patient Education Materials: Rib Contusion; Cervical Strain and Sprain Rehab; Pulmonary Nodule; Acute Kidney Injury, Adult A MESSAGE TO ALL PATIENTS REGARDING OPIOIDS PRESCRIPTION OPIOIDS: WHAT YOU NEED TO KNOW Prescription opioids can be used to help relieve nrfnhqxn-yx-zkdlcu pain and are often prescribed following a surgery or injury, or for certain health conditions. These medications can be an important part of the treatment but also come with serious risks. It is important to work with your healthcare provider to make sure you are getting the safest, most effective care. WHAT ARE THE RISKS AND SIDE EFFECTS OF OPIOID USE? Prescription opioids carry serious risks of addiction and overdose, especially with prolonged use. An opioid overdose, often marked by slowed breathing, can cause sudden . The use of prescription opioids can have a number of side effects as well, even when taken as directed: ??? Tolerance???meaning you might need to take more of the medication for the same pain relief ??? Physical dependence???meaning you have symptoms of withdrawal when a medication is stopped ??? Increased sensitivity to pain ??? Constipation ??? Nausea, vomiting, and dry mouth ??? Sleepiness and dizziness ??? Confusion ??? Depression ??? Low levels of testosterone that can result in lower sex drive, energy, and strength ??? Itching and sweating RISKS ARE GREATER WITH: ??? History of drug misuse, substance use disorder, or overdose ??? Mental health conditions (such as depression or anxiety) ??? Sleep apnea ??? Older age (65 years and older) ??? Avoid alcohol while taking prescription opioids. Also, unless specifically advised by your health care provider, medications to avoid include: ??? Benzodiazepines (such as Xanax or Valium) ??? Muscle relaxants (such as Soma or Flexeril) ??? Hypnotics (such as Ambien or Lunesta) ??? Other prescription opioids KNOW YOUR OPTIONS Talk to your health care provider about ways to manage your pain that don???t involve prescription opioids. Some of these options may actually work better and have fewer risks and side effects. Options may include: ??? Pain relievers such as acetaminophen, ibuprofen, and naproxen ??? Some medication that are also used for depression or seizures ??? Physical therapy and exercise ??? Cognitive behavioral therapy, a psychological, goal-directed approach, in which patients learn how to modify physical, behavioral, and emotional triggers of pain and stress. IF YOU ARE PRESCRIBED OPIOIDS FOR PAIN: ??? Never take opioids in greater amounts or more often than prescribed. ??? Follow up with your primary health care provider. o Work together to create a plan on how to manage your pain. o Talk about ways to help manage your pain that don???t involve prescription opioids. (more content not included)...NormalOhiohealth Grady Memorial HospitalEthanolon 22-38-5944Upffraa Lvl<10Normal<=11Ohio[facility]ady Memorial HospitalComment on above: Performed By: #### [id number] #### [facility] [address] [place], [place] [address]One [facility] Panelon 00-68-9314Rhnweck [Mass/Vol]3.7 g/dLNormal 3.3-5.0Ohio[facility]ady Memorial HospitalComment on above:Performed By: #### [id number] #### [facility] [address] [place], [place] [address]Rentunf/Globulin [Mass ratio]1.1 {ratio}Normal1.1-2.2FSt. Anthony's HospitalComment on above:Performed By: #### [id number] #### [facility] [address] [place], [place] [address]Vmb Wvip381 Int._Unit/HOctb44-26IwoqbcOhiohealth Grady Memorial Hospital Comment on above:Performed By: #### [id number] #### [facility] [address] [place], [place] [address]EMK50 Int._Unit/LNormal6-46Ohio[facility] Memorial HospitalComment on above:Performed By: #### [id number] #### [facility] [address] [place], [place] [address]IGA20 Int._Unit/LNormal5-43[facility] Memorial HospitalComment on above:Performed By: #### [id number] #### [facility] [address] [place], [place] [address]Mfat Direct0.1 mg/dLNormal0.0-0.4FSt. Anthony's Hospital Comment on above:Performed By: #### [id number] #### [facility] [address] [place], [place] [address]Jpga Indirect0.8 mg/dLNormal0.1-0.9[facility] Comment on above:Performed By: #### [id number] #### [facility] [address] [place], [place] [address]Immn Total0.9 mg/dLNormal0.0-1.1FSt. Anthony's Hospital Comment on above:Performed By: #### [id number] #### [facility] [address] [place], [place] [address]Zlsjqhmj (S) [Mass/Vol]3.3 g/dLNormal1.4-4.0[facility] Memorial HospitalComment on above:Performed By: #### [id number] #### [facility] [address] [place], [place] [address]Prwbicu [Mass/Vol]7.0 g/dLNormal6.0-7.8[facility] Memorial HospitalComment on above:Performed By: #### [id number] #### [facility] [address] [place], [place] [address]Oiseis Acidon 38-66-4426Fpkvvk Acid Lvl1.0 mmol/LNormal0.5-2.2 [facility] Memorial HospitalComment on above:Performed By: #### [id number] #### [facility] [address] [place] [address]Lwcanc Levelon 07-09-6564Esjart Lvl22 unit/QQunedd07-12WhittvOhiohealth Grady Memorial HospitalComment on above:Performed By: #### [id number] #### [facility] [address] [place] [address]WA & PTTon 90-74-2115MLT Coag (PPP) [Relative time]1.14 {INR} Invalid Interpretation CodeOhiohealth Grady Memorial HospitalComment on above:Result Comment: INR results are specifically intended to assess patients stabilized on long-term Anticoagulation therapy suggested INR???s ???Less Intensive Anticoagulation??? 2.0 ??? 3.0 Conventional Range 3.0 ??? 4.5Performed By: #### [id number] #### [facility] [address] [place], [place] [address]VO85.8 second(s)High9.4-12.5[facility] Western MarylandComment on above:Result Comment: 15 days - 4 weeks 1 - 5 months 6 -11 months 1-5 years 6-10 years 11 -17 years Mean: 11.2 (9.5-12.6) Mean: 11.0 (9.7-12.8) Mean: 11.0 (9.8-13.0) Mean: 11.3 (9.9-13.4) Mean: 11.7 (10.0-14.6) Mean: 11.8 (10.0 - 14.1) Pediatric Reference ranges were obtained from a study by Juan Pablo Mari et al. prepared from 1437 samples obtained at 7 different centers using the same coagulation reagent and instrumentation as [facility] Currently there are no coagulation studies available worldwide for children to 14 days, andno normal ranges.Performed By: #### [id number] #### [facility] [address] [place], [place] [address]VUQ53.0 second(s)High25.1-36.5[facility] Comment on above:Result Comment: Parameter 15 days - 4 weeks 1 - 5 months 6 - 11 months 1 - 5 years 6 - 10 years 11 - 17 years PTT Mean: 35.4 (27.6-45.6) Mean: 33.5 (24.8-40.7) Mean: 32.4 (25.1-40.7) Mean: 31.6 (24.0-39.2) Mean: 31.6 (26.9-38.7) Mean: 31.0 (24.6-38.4) Pediatric Reference ranges were obtained from a study by Juan Pablo Mari et al. prepared from 1437 samples obtained at 7 different centers using the same coagulation reagent and instrumentation as [facility]. Currently there are no coagulation studies available worldwide for children to 14 days, andno normal ranges. Heparin therapeutic range (represented by Anti-Factor Xa activity of 0.2 - 0.4 U/mL) corresponds to PTT of 56.6 - 109.0 sec.Performed By: #### [id number] #### [facility] [address] [place], [place] [address]Abg-Clkotnz Noteon 32-76-2677Mvw-Arrival NotePre-Arrival Note Pre-Arrival Summary Name: , CItizens Current Date: 01/12/2025 13:16:55 EDT Gender: Male Date of : Age: 79 Pre-Arrival Type: EMS ETA: 01/12/2025 13:31:00 EDT Primary Care Physician: Presenting Problem: fall; left shoulder pain Pre-Arrival User: Cristian MARTINEZ, Zaynab Dee Referring Source: Location: [place] Completion Date/Time: 01/12/2025 13:02:00 [facility] Emergency Department Pre-Hospital Report Form Vital Signs: Pre-Hospital Report: fall; +hit head, -loc, -thinners. +Cp. left shoulder pain. deformity 2 ribs onleft side Treatment in Route: Response to Treatment: Misc. Issues:NormalOhiohealth Grady Memorial HospitalTroponinon 00-24-8776Upjlzqbh HS 5.10 pg/mLLow15.90-38.40Ohiohealth Grady Memorial HospitalComment on above:Result Comment: The 95% CI (Confidence Interval) PPV (Positive Predictive Value) for myocardial infarction in females is 38 pg/mL, in males 51 pg/mL. The results should be used in conjunction with clinical conditions of myocardial infarction. (Access High Sensitivity Troponin I Instructions For Use, Vipin Bahman, October 2017)Performed By: #### [id number] #### [facility] [address] [place], [place] [address]JS Chest Single Viewon 38-68-3556HN Chest Single ViewExam Date/Time: 01/12/2025 13:51 EDT Reason for Exam: Trauma;Other (please specify) Report IMPRESSION: ILL-DEFINITION REGION LEFT UPPER LOBE AND AORTIC KNOB WITH PROMINENT MEDIASTINUM. THE THORACIC TRAUMA IS A CLINICAL CONCERN, CTA CHEST WITH INTRAVENOUS CONTRAST MEDIUM MAY BE UTILIZED FOR FURTHER EVALUATION. CLINICAL HISTORY: Trauma COMPARISON: NONE. FINDINGS: Osseous structures intact. Cardiopericardial silhouette normal. Pulmonary vasculature normal. Mediastinal widening on portable supine chest radiograph. Ill-defined increased opacity visualized overlying region of aortic knob and extending into left upper lobe. Technical Comments: geraldine Fabian in mGy = na DAP = na Ordering Provider: Gagan Cates FINAL REPORT Dictated: 01/12/2025 2:07 pm Will Matson MD Signed (Electronic Signature): 01/12/2025 2:07 pm Signed by: Will Matson MD Transcribed by: MARLYS Technologist: ZAYDAKettering HealthXR Shoulder Complete Lefton 23-11-7575CG Shoulder Complete LeftExam Date/Time: 01/12/2025 13:52 EDT Reason for Exam: Pain, Traumatic Report IMPRESSION: NEGATIVE LEFT SHOULDER. CLINICAL HISTORY: Pain, Traumatic COMPARISON: NONE FINDINGS: 5 views left shoulder. No fracture, dislocation, bone lesion. Glenohumeral joint, and acromioclavicular joint maintained. Left acromial humeral interval maintained. Ordering Provider: Gagan Cates FINAL REPORT Dictated: 01/12/2025 2:10 pm Will Matson MD Signed (Electronic Signature): 01/12/2025 2:10 pm Signed by: Will Matson MD Transcribed by: MARLYS Technologist: SALVADORMcKitrick HospitaleGFRon 19-38-3959hVDI68 mL/min/1.73 m2Low>=59Ohio[facility] Grady Memorial HospitalComment on above:Performed By: #### [id number] #### [facility] [address] [id number] Cultureon 35-54-4461Wmxshrcj identified Cx Nom (U)No Growth 2 Days PERFORMED BY: [place] [address] PATHOLOGIST ALUMINUM SIDING APPLICATOR MAYRA RANGEL M.D.[facility] Physician GroupComment on above: Performed By: #### CUU #### [place] [id number] USAECG 12 Leadon 84-53-8729Fhysn rhythm with occasional PACs QTc Miri is 501 [facility] Work Phone: ecg 12 Lead[place] 68-36-0548Qxhibi sinus rhythm with prolonged QTc interval of 517 [facility] Work Phone: ecg 12 [place] 04-75-4945Esajnj sinus rhythm with 1 PVC and QTc interval is borderline prolonged at 500 malOhio[facility] Work Phone: ecg 12 [place] 76-33-7314Hdwfri sinus rhythm with a QTc interval of 495 [facility] Work Phone: ecg 12 [place] 74-15-8522Gbbczc fibrillation with nonspecific ST-T changesCPAvita Health System Work Phone: ecg 12 [place] 60-03-8056Mqogot sinus rhythm with a QTc interval of 481 [facility] Work Phone: Tobacco Screening.on 35-89-4507Pggvv depression screening assessmentNoFranciscan Health [employer] Work Phone: Fall risk assessmentb) One or more falls in the last yearFranciscan Health [employer]A [employer] Work Phone: Tobacco use status CPHSb) NoMDayton General Hospital [employer]y Layer Work Phone: Office Visit (Cardiology)on 77-76-6557Ddomfd-up visit Diagnoses/Problems Assessed Persistent atrial fibrillation (427.31) [...] hospital for stroke. Apparently he had ran outof his sotalol for several days 3. High-risk [...] refused both I advised him that he hadvery high risk for recurrence of his stroke he understand 4. We will try to retrieve retrieve his record from [place] Surgical History Problems History of Back surgery [...] Recorded: 06Jun2022 09:22AM Heart Rate80, L Radial Fgnbwluz789, LUE, Sitting Fljndukqr08, LUE, Sitting Height6 ft 1 in Cebkkw708 lb BMI Mruzcxsrqo35.84 kg/m2 BSA Calculated2.2 Tobacco Useb) No Falls [...] was irregularly irregular, p (more content not included)...NormalUH Touchworks Tobacco Screening.on 24-53-8945Jxwu risk assessmenta) No falls within the last yearFranciscan Health [employer] 250 DO Work Phone: Tobacco use status CPHSb) [facility] [place] 250 DO Work Phone: Office Visit (Cardiology)on 77-79-5189Rcxcqx-up visit Diagnoses/Problems Assessed Persistent atrial fibrillation (427.31) [...] Weight Tips; Status:Complete - Retrospective Authorization; Done: [id number] Some eating tips that can help you lose weight.; Status:Complete - Retrospective Authorization; Done: 05Jun2022 Persistent atrial fibrillation IO EKG Electrocardiogram- 12 Lead; Status:Complete; Done: [id number] SocHx: Former smoker Tobacco Use Screening; Status:Complete; Done: [id number] Patient Instructions Please bring all medicines, vitamins, and herbal supplements with you when you come to the office. Prescriptions will not be filled unless you are compliant with your follow up appointments or have a follow up appointment scheduled as per instruction of your physician. Refills should be requested at the time of your visit. Fall prevention education given [employer] discuss with patient Patient to call with correct medication list Retrieve records from [place] Will come back tomorrow with medication bottles [...] reports he was in the hospital in [place] in [place] after a stroke. Hedoes not know if [...] 4. I to retrieve his record from [place] 5. I advised the patient TO bring [...] OCCASIONALLY Former smoker (V15.82 (more content not included)...NormalUH TouchworksTobacco Screening.on 34-56-4043Tsrux depression screening assessmentNoFranciscan Health Heart-[employer] 250 DO Work Phone: Fall risk assessmentb) One or more falls in the last yearFranciscan Health Heart-Hol[employer] 250 DO Work Phone: Tobacco use status CPHSb) NoMDayton General Hospital Heart- Rosita 250 DO Work Phone: CBC AUTO DIFFon 70-79-8583HLAI #0.0 103/ulNormal 0.0-0.1The [facility] HospitalComment on above:Performed By: #### CBC ####[facility] N[address] [place], [place] [address]Dr.Yilan Pugh Basophils/100 WBC (Bld)0.5 %Normal0.2-2.0The [facility] HospitalComment on above: Performed By: #### CBC ####[facility] Rqwuqtlfsn[address] [place], [place] [address]Dr.Yilan ChangEO #0.4 103/ulNormal0.0-0.7The [facility] HospitalComment on above:Performed By: #### CBC ####[facility] W[address]ri[address] [place], [place] [address]Dr.Yilan ChangEosinophils/100 WBC (Bld)4.7 %Normal0.9-7.0The [facility] HospitalComment on above:Performed By: #### CBC ####[facility] Sybsnyyfl[address] [place], [place] [address]Dr.Yilan ChangErythrocyte distribution width (RBC) [Ratio]13.7 %Normal 11.0-15.0The [facility] HospitalComment on above:Performed By: #### CBC ####[facility] Zkxlqciesu[address] [place], [place] [address]Dr. Yilan ChangHematocrit (Bld) [Volume fraction]40.5 %Critically low42.0-54.0The [facility] HospitalComment on above:Performed By: #### CBC ####[facility] [address] [address]Dr.Shondapreston KeatonHemoglobin (Bld) [Mass/Vol]13.5 g/dLCritically low14.0-18.0The [facility] HospitalComment on above:Performed By: #### CBC ####[facility] Pyhvfm[address]wj[address] [place], [place] [address]Dr.Shondapreston ChangIG #0.03 10e3/ulNormal0.00-0.03The [facility] HospitalComment on above:Performed By: #### CBC ####[facility] Jonyeonsfl[address] [place], [place] [address]Dr.Sea ChangIG %0.4 %Normal 0.0-0.5The [facility] HospitalComment on above:Performed By: #### CBC ####[facility] Lbtvarilxk[address] [place], [place] [address]Dr.Sea PughLYMPH #2.0 103/ulNormal1.2-3.8The [facility] HospitalComment on above:Performed By: #### CBC ####[facility] Kmejcnhgvs[address] [place], [place] [address]Dr.Shondapreston PughLymphocytes/100 WBC (Bld)25.4 %Ahzwct69.5-60.0The [facility] HospitalComment on above:Performed By: #### CBC ####[facility] Nbvofvvehc[address] [place], [place] [address]Dr.Sea PughMANUAL DIFF REQ NONormalThe [facility] HospitalComment on above:Performed By: #### CBC ####[facility] Qpoujhegxi[address] [place], [place] [address]Dr. Sea PughH (RBC) [Entitic mass]29.6 fdCathcv21.9-34.0The [facility] Comment on above:Performed By: #### CBC ####[facility] W[address]nrriwklp[address] [place], [place] [address]Dr.Sea PughMCHC (RBC) [Mass/Vol]33.3 g/dL Rwchdg22.9-35.2The [facility] HospitalComment on above:Performed By: #### CBC ####[facility] [address] [place] [address] [address]Dr. Sea PughMCV (RBC) [Entitic vol]88.8 fWDhiuuw84.0-94.0The [facility] Comment on above:Performed By: #### CBC ####[facility] U[address]xibnbrz[address] [place], [place] [address]Dr.Sea PughMONO #0.8 103/ulNormal0.3-0.8 The [facility] HospitalComment on above:Performed By: #### CBC ####[facility] Oowyovkixj[address] [place], [place] [address]Dr.Sea Pugh Monocytes/100 WBC (Bld)10.4 %Normal1.7-12.0The [facility] HospitalComment on above:Performed By: #### CBC ####[facility] Wuwighgfve[address] [place], [place] [address]Dr.Sea KeatonNEUT #4.6 103/ulNormal1.4-6.5The [facility] HospitalComment on above:Performed By: #### CBC ####[facility] Amoopjmckp[address] [place], [place] [address]Dr.Sea PughNeutrophils/100 WBC (Bld)58.6 %Ylmkoo61.0-75.0The [facility] HospitalComment on above:Performed By: #### CBC ####[facility] Nagaplzjbs[address] [place], [place] [address]Dr.Sea KeatonPlatelet mean volume (Bld) [Entitic vol]9.8 fLNormal9.5-13.5 The [facility] HospitalComment on above:Performed By: #### CBC ####[facility] Vqizfm[address]xu[address] [place], [place] [address]Dr.Shnodapreston PughAkdxyPYH043 103/mtRpxnxj706-013Lat [facility] HospitalComment on above:Performed By: #### CBC ####[facility] [address]cqesfgyp[address] [place], [place] [address]Dr. Sea PughRBC4.56 106/ulCritically low4.70-6.10The [facility] HospitalComment on above:Performed By: #### CBC ####[facility] [address] [place] [address]Dr.Yilan PughWBC7.8 103/ulNormal4.0-11.0The [facility] HospitalComment on above:Performed By: #### CBC ####[facility] [address] [place] [address]Dr.Yilan CampuzanoC AUTO DIFFon 55-57-7549YRWJ #0.1 103/ulNormal0.0-0.1The [facility] HospitalComment on above: Performed By: #### HSTROPN, CMP, CRP #### [facility] [address] [address] [address] Sea PughBasophils/100 WBC (Bld)0.7 %Normal0.2-2.0The [facility] Comment on above:Performed By: #### HSTROPN, CMP, CRP #### [facility] [address] [address] [address] Sea Torre #0.3 103/ulNormal0.0-0.7The [facility] HospitalComment on above: Performed By: #### HSTROPN, CMP, CRP #### [facility] [address] [address] [address] Sea Fordosinophils/100 WBC (Bld)4.9 %Normal0.9-7.0The [facility] Comment on above:Performed By: #### HSTROPN, CMP, CRP #### [facility] [address] [address] [address] Sea Fordrythrocyte distribution width (RBC) [Ratio]14.0 %Kkgzdu77.0-15.0 The [facility] Hospitalment on above:Performed By: #### HSTROPN, CMP, CRP #### [facility] [address] [address] [address] Sea PughHematocrit (Bld) [Volume fraction]38.5 %Critically low42.0-54.0 The López HospitalComment on above:Performed By: #### HSTROPN, CMP, CRP #### [facility] [address] [address] [address] Sea PughHemoglobin (Bld) [Mass/Vol]13.3 g/dLCritically low14.0-18.0The [facility] HospitalComment on above:Performed By: #### HSTROPN, CMP, CRP #### [facility] [address] [place] [address] Dr. Sea Anguiano #0.02 10e3/ulNormal0.00-0.03The [facility] Hospitalment on above:Performed By: #### HSTROPN, CMP, CRP #### [facility] [address] [place] [address] Dr. Sea Anguiano %0.3 %Normal0.0-0.5The [facility] on above: Performed By: #### HSTROPN, CMP, CRP #### [facility] [address] [place] [address] Dr. Sea Galeano #1.5 103/ulNormal1.2-3.8The [facility] Hospitalment on above:Performed By: #### HSTROPN, CMP, CRP #### [facility] [address] [place] [address] Dr. Sea Princehocytes/100 WBC (Bld)22.7 %Uoapuo60.5-60.0The [facility] on above:Performed By: #### HSTROPN, CMP, CRP #### [facility] [address] [place] [address] Dr. Sea SoniUAL DIFF REQNONormalThe [facility] HospitalComment on above: Performed By: #### HSTROPN, CMP, CRP #### [facility] [address] [place] [address] Dr. Sea Figueroa (RBC) [Entitic mass]29.4 usWbduze87.9-34.0The [facility] HospitalComment on above:Performed By: #### HSTROPN, CMP, CRP #### [facility] [address] [place] [address] Dr. Sea Steele (RBC) [Mass/Vol]34.5 g/mKQiawln60.9-35.2The [facility] HospitalComment on above:Performed By: #### HSTROPN, CMP, CRP #### [facility] [address] [address] [address] Sea Steele (RBC) [Entitic vol]85.0 gULbayww88.0-94.0The [facility] HospitalComment on above:Performed By: #### HSTROPN, CMP, CRP #### [facility] [address] [place] [address] Dr. Sea Rain #0.7 103/ulNormal0.3-0.8The [facility] HospitalComment on above:Performed By: #### HSTROPN, CMP, CRP #### [facility] [address] [place] [address] Dr. Sea Bansalocytes/100 WBC (Bld)10.2 %Normal1.7-12.0The [facility] Comment on above:Performed By: #### HSTROPN, CMP, CRP #### [facility] [address] [place] [address] Dr. Sea Zapata #4.1 103/ulNormal1.4-6.5The [facility] HospitalComment on above:Performed By: #### HSTROPN, CMP, CRP #### [facility] [address] [place] [address] Dr. Sea Díazutrophils/100 WBC (Bld)61.2 %Mkzmyj91.0-75.0The [facility] HospitalComment on above:Performed By: #### HSTROPN, CMP, CRP #### [facility] [address] [place] [address] Dr. Sea Caldwell mean volume (Bld) [Entitic vol]9.1 fLCritically low 9.5-13.5The [facility] HospitalComment on above:Performed By: #### HSTROPN, CMP, CRP #### [facility] [address] [place], [place] [address] Dr. Sea PughPLT216 103/xkGpeqfb369-960Gkr [facility] HospitalComment on above: Performed By: #### HSTROPN, CMP, CRP #### [facility] [address] [address] [address] Sea PughRBC4.53 106/ulCritically low4.70-6.10The [facility] HospitalComment on above:Performed By: #### HSTROPN, CMP, CRP #### [facility] [address] [address] [address] Sea PughWBC6.8 103/ulNormal4.0-11.0The [facility] HospitalComment on above: Performed By: #### HSTROPN, CMP, CRP #### [facility] [address] [place] [address] Dr. Osei ChangECHOCARDIO M/2D COMPLETEon [id number] M/2D COMPLETE Patient: SHAHRZAD EDGAR Exam Date: 04/21/2022 : 1945 Gender:M Ordering : SHAIKH Marya CAMPOS . Admission #: [id number] Family : Order #: [id number] CLICK HERE TO VIEW EXAM ECHOCARDIOGRAM REPORT PROCEDURE: CARDIO PULMONARY ECHOCARDIO M/2D COMP INDICATIONS: Elevated troponin, TIA, HX:NH COMPARISON: None. DESCRIPTION: COMPLETE ECHOCARDIOGRAM Real-time transthoracic [...] by: Florinda Chan M.D. on 04/21/2022 at 14:57[facility] CenterMRI BRAIN WO CONon [id number] BRAIN WO CONEXAMINATION: MRI BRAIN WO CON, 04/20/2022 6:59 AM [...] authenticated by: RAMESH DE SANTIAGO Date: 2022-04-21 14:41[facility] CenterPOINT OF CARE GLUCOSEon [id number] [Mass/Vol]180 mg/dL Critically dzmk09-298LnsUk HealthcareComment on above:Performed By: #### POCGLUC ####[facility] [address] [address]Dr. Sea PughPROF CHEM 8 (BAS METB)on 91-63-6440Ztpdl gap [Moles/Vol]13.5 mmol/LNormalUk HealthcareComment on above:Performed By: #### DDIM #### [facility] [address] [place], [place] [address] Dr. Sea PughCalcium [Mass/Vol]8.7 mg/dLNormal8.5-10.1[facility] Comment on above:Performed By: #### DDIM #### [facility] [address] [address] [address] Sea PughChloride [Moles/Vol]100 mmol/PFisybu91-682Frw [facility] Comment on above:Performed By: #### DDIM #### [facility] [address] [address] [address] Sea PughCO2 [Moles/Vol]27.2 mmol/AUwaxau52.0-32.0The [facility] Comment on above:Performed By: #### DDIM #### [facility] [address] [place] [address] Dr. Sea PughCreatinine [Mass/Vol]1.27 mg/dLNormal0.70-1.30The [facility] HospitalComment on above:Performed By: #### DDIM #### [facility] [address] [place] [address] Dr. Osei ChangEGFR-AF SRI LANKAN>60Normal>=60The [facility] HospitalComment on above:Performed By: #### DDIM #### [facility] [address] [place] [address] Dr. Sea FordGFR-NON AF LEPGWSNT87 mL/min/1.41r8Ncyapxpdpu low>=60The [facility] HospitalComment on above:Performed By: #### DDIM #### [facility] [address] [address] [address] Sea PughGlucose [Mass/Vol]134 mg/dLCritically pkbe38-863Aps [facility] HospitalComment on above:Performed By: #### DDIM #### [facility] [address] [place] [address] Dr. Sea PughPotassium [Moles/Vol]3.7 mmol/LNormal3.5-5.1The [facility] Comment on above:Performed By: #### DDIM #### [facility] [address] [place] [address] Dr. Sea Reneeum [Moles/Vol]137 mmol/ZVyiyye489-733Wph [facility] Comment on above:Performed By: #### DDIM #### [facility] [address] [place] [address] Dr. Sea Starr nitrogen [Mass/Vol]14.0 mg/dLNormal7.0-18.0The [facility] HospitalComment on above:Performed By: #### DDIM #### [facility] [address] [place] [address] Dr. Sea Starr nitrogen/Creatinine [Mass ratio]11.0 mg/mgNormalThe [facility] HospitalComment on above:Performed By: #### DDIM #### [facility] [address] [place] [address] Dr. Sea Boles SRINIVASAN 3-6on 31-87-1005BQ [Catalytic activity/Vol]282 U/L Fwvrut78-191Zhf [facility] HospitalComment on above:Performed By: #### HSTROPN, CMP, CRP #### [facility] [address] [place] [address] Dr. Sea Dailey.MB [Mass/Vol]4.34 ng/mLCritically high<=3.60The [facility] on above:Performed By: #### HSTROPN, CMP, CRP #### [facility] [address] [place] [address] Dr. Sea PughHSTROP113.2 pg/mLCritically high4.0-76.1The [facility] Comment on above:Result Comment: CUT-OFF POINTS HAVE BEEN ESTABLISHED BASED ON THE FOURTH UNIVERSAL DEFINITIONS OF MYOCARDIAL INFARCTION. THE UPPER REFERENCE LIMIT (URL) OF TROPONIN, DEFINED THE 99TH PERCENTILE OF cTnI DISTRIBUTION IN A REFERENCE POPULATION, HAS BEEN CONFIRMED THE DECISION THRESHOLD FOR NH DIAGNOSIS.Performed By: #### HSTROPN, CMP, CRP #### [facility] [address] [place] [address] Dr. Sea Rachel AUTO DIFFon 23-78-7575LHUR #0.0 103/ulNormal0.0-0.1The López HospitalComment on above:Performed By: #### HSTROPN, CMP, CRP #### [facility] [address] [address] [address] Sea PughBasophils/100 WBC (Bld)0.5 %Normal0.2-2.0The [facility] Comment on above:Performed By: #### HSTROPN, CMP, CRP #### [facility] [address] [place] [address] Dr. Sea Torre #0.1 103/ulNormal0.0-0.7The [facility] HospitalComment on above: Performed By: #### HSTROPN, CMP, CRP #### [facility] [address] [place] [address] Dr. Sea Fordosinophils/100 WBC (Bld)0.6 %Critically low0.9-7.0The [facility] Hospitalment on above:Performed By: #### HSTROPN, CMP, CRP #### [facility] [address] [place] [address] Dr. Sea Fodrrythrocyte distribution width (RBC) [Ratio]13.6 %Prjmpo18.0-15.0 The [facility] Hospitalment on above:Performed By: #### HSTROPN, CMP, CRP #### [facility] [address] [place] [address] Dr. Sea PughHematocrit (Bld) [Volume fraction]37.2 %Critically low42.0-54.0 The [facility] Hospitalment on above:Performed By: #### HSTROPN, CMP, CRP #### [facility] [address] [place] [address] Dr. Sea PughHemoglobin (Bld) [Mass/Vol]13.3 g/dLCritically low14.0-18.0The [facility] Hospitalment on above:Performed By: #### HSTROPN, CMP, CRP #### [facility] [address] [place] [address] Dr. Sea PughIG #0.04 10e3/ulCritically high0.00-0.03The [facility] Comment on above:Performed By: #### HSTROPN, CMP, CRP #### [facility] [address] [place] [address] Dr. Sea Anguiano %0.5 %Normal0.0-0.5The [facility] HospitalComment on above: Performed By: #### HSTROPN, CMP, CRP #### [facility] [address] [place] [address] Dr. Sea Galeano #1.2 103/ulNormal1.2-3.8The [facility] HospitalComment on above:Performed By: #### HSTROPN, CMP, CRP #### [facility] [address] [place] [address] Dr. Sea Princehocytes/100 WBC (Bld)14.7 %Critically low20.5-60.0The [facility] HospitalComment on above:Performed By: #### HSTROPN, CMP, CRP #### [facility] [address] [place] [address] Dr. Sea SoniUAL DIFF REQNONormalThe [facility] HospitalComment on above: Performed By: #### HSTROPN, CMP, CRP #### [facility] [address] [place] [address] Dr. Sea Steele (RBC) [Entitic mass]29.6 crDovwrm72.9-34.0The [facility] HospitalComment on above:Performed By: #### HSTROPN, CMP, CRP #### [facility] [address] [place] [address] Dr. Sea Steele (RBC) [Mass/Vol]35.8 g/dLCritically high29.9-35.2The [facility] HospitalComment on above:Performed By: #### HSTROPN, CMP, CRP #### [facility] [address] [place] [address] Dr. Sea Steele (RBC) [Entitic vol]82.9 mKEflbyu56.0-94.0The [facility] HospitalComment on above:Performed By: #### HSTROPN, CMP, CRP #### [facility] [address] [address] [address] Sea Rain #0.7 103/ulNormal0.3-0.8The [facility] HospitalComment on above:Performed By: #### HSTROPN, CMP, CRP #### [facility] [address] [address] [address] Sea Bansalocytes/100 WBC (Bld)9.4 %Normal1.7-12.0The [facility] Comment on above:Performed By: #### HSTROPN, CMP, CRP #### [facility] [address] [place] [address] Dr. Sea Zapata #5.9 103/ulNormal1.4-6.5The [facility] HospitalComment on above:Performed By: #### HSTROPN, CMP, CRP #### [facility] [address] [address] [address] Sea Díazutrophils/100 WBC (Bld)74.3 %Zzcnmh01.0-75.0The [facility] HospitalComment on above:Performed By: #### HSTROPN, CMP, CRP #### [facility] [address] [place] [address] Dr. Sea Caldwell mean volume (Bld) [Entitic vol]9.4 fLCritically low 9.5-13.5The [facility] Hospitalment on above:Performed By: #### HSTROPN, CMP, CRP #### [facility] [address] [place] [address] Dr. Sea PughPLT215 103/egXbplja646-701Iwk [facility] HospitalComment on above: Performed By: #### HSTROPN, CMP, CRP #### [facility] [address] [place] [address] Dr. Sea PughRBC4.49 106/ulCritically low4.70-6.10The [facility] HospitalComment on above:Performed By: #### HSTROPN, CMP, CRP #### [facility] [address] [address] [address] Sea PughWBC7.9 103/ulNormal4.0-11.0Uk HealthcareComment on above: Performed By: #### HSTROPN, CMP, CRP #### [facility] [address] [place] [address] Dr. Sea PughCovid-19 PCR ([facility]on 35-66-1310HDTL-CoV-2 (COVID-19) RNA PHOENIX+probe Ql (Unsp spec)Not detectedNormalNOT DETECTEDThe [facility] Comment on above:Result Comment: When diagnostic testing is negative, the [...] for this test is supported by the Editor Managing Director of Health and Human Service's declaration that circumstances exist to justify the emergency use of in vitro diagnostics for the detection and/or diagnosis of the virus that causes COVID-19. This EUA will remain in effect for the duration of the COVID-19 declaration justifying emergency of IVDs, unless it is terminated or revoked by the FDA (after which the test may no longer be used).Performed By: #### DDIM #### [facility] [address] [place] [address] Dr. Sea PughPOINT OF CARE GLUCOSEon 79-90-1068Dvdqryt [Mass/Vol]134 mg/dL Critically kruu58-715Cqa [facility] HospitalComment on above:Performed By: #### DDIM #### [facility] [address] [place] [address] Dr. Sea PughPROF CHEM 8 (BAS METB)on 74-34-9916Wmnkb gap [Moles/Vol]15.3 mmol/LNormalUk HealthcareComment on above:Performed By: #### BMP ####[facility] [address] [place], [place] [address]Dr. Yilan ChangCalcium [Mass/Vol]8.9 mg/dLNormal8.5-10.1The [facility] HospitalComment on above:Performed By: #### BMP ####[facility] [address] [place], [place] [address]Dr.Yilan ChangChloride [Moles/Vol]101 mmol/LNormal 98-107The [facility] HospitalComment on above:Performed By: #### BMP ####[facility] [address] [place], [place] [address]Dr.Yilan ChangCO2 [Moles/Vol]25.5 mmol/AAmpicm37.0-32.0The [facility] HospitalComment on above: Performed By: #### BMP ####[facility] [address] [place], [place] [address]Dr.Yilan ChangCreatinine [Mass/Vol]1.09 mg/dLNormal 0.70-1.30The [facility] on above:Performed By: #### BMP ####[facility] [address] [place], [place] [address]Dr. Yilan ChangEGFR-AF SRI LANKAN>60Normal>=60The [facility] HospitalCommymichigan medical center west branch on above: Performed By: #### BMP ####[facility] [address] [place], [place] [address]Dr.Yilan ChangEGFR-NON AF SRI LANKAN>60Normal>=60The [facility] HospitalComment on above:Performed By: #### BMP ####[facility] [address] [place], [place] [address]Dr.Yilan ChangGlucose [Mass/Vol]150 mg/dLCritically mqxq45-521Cpx [facility] HospitalComment on above: Performed By: #### BMP ####[facility] [address] [place], [place] [address]Dr.Yilan ChangPotassium [Moles/Vol]3.8 mmol/LNormal 3.5-5.1The [facility] HospitalComment on above:Performed By: #### BMP ####[facility] [address], [place] [address]Ta.Sea Pugh Sodium [Moles/Vol]138 mmol/BXtyxtg195-050Ksb [facility] Hospitalment on above: Performed By: #### BMP ####[facility] [address] [place], [place] [address]Rd.Shondapreston ChangUrea nitrogen [Mass/Vol]11.0 mg/dLNormal 7.0-18.0The [facility] HospitalComment on above:Performed By: #### BMP ####[facility] [address], [place] [address]Kv. Sea ChangUrea nitrogen/Creatinine [Mass ratio]10.1 mg/mgNormalThe [facility] HospitalComment on above:Performed By: #### BMP ####[facility] [address] [id number] Burnette, HIGH SENSITIVITYon 34-11-4853HBDPQB027.3 pg/mLCritically high4.0-76.1The [facility] on above:Result Comment: CUT-OFF POINTS HAVE BEEN ESTABLISHED BASED ON THE FOURTH UNIVERSAL DEFINITIONS OF MYOCARDIAL INFARCTION. THE UPPER REFERENCE LIMIT (URL) OF TROPONIN, DEFINED THE 99TH PERCENTILE OF cTnI DISTRIBUTION IN A REFERENCE POPULATION, HAS BEEN CONFIRMED THE DECISION THRESHOLD FOR NH DIAGNOSIS.Performed By: #### DDIM #### [facility] [address] [address] [address] Sea PughHSTROP141.1 pg/mLCritically high4.0-76.1The [facility] Comment on above:Result Comment: CUT-OFF POINTS HAVE BEEN ESTABLISHED BASED ON THE FOURTH UNIVERSAL DEFINITIONS OF MYOCARDIAL INFARCTION. THE UPPER REFERENCE LIMIT (URL) OF TROPONIN, DEFINED THE 99TH PERCENTILE OF cTnI DISTRIBUTION IN A REFERENCE POPULATION, HAS BEEN CONFIRMED THE DECISION THRESHOLD FOR NH DIAGNOSIS.Performed By: #### HSTROPN #### [facility] [address] [place], [place] [address] Dr. Sea Boles SRINIVASAN ADMITon 22-87-6680MP [Catalytic activity/Vol]266 U/L Cjtofc58-220Tsa [facility] HospitalComment on above:Performed By: #### BMP, CMADM ####[facility] [address] [id number] Dailey.MB [Mass/Vol]4.18 ng/mLCritically high<=3.60The [facility] Comment on above:Performed By: #### BMP, CMADM ####[facility] [address] [address]DrMook PughHSTROP32.5 pg/mLNormal4.0-76.1The [facility] Hospitalment on above:Result Comment: CUT-OFF POINTS HAVE BEEN ESTABLISHED BASED ON THE FOURTH UNIVERSAL DEFINITIONS OF MY OCARDIAL INFARCTION. THE UPPER REFERENCE LIMIT (URL) OF TROPONIN, DEFINED THE 99TH PERCENTILE OF cTnI DISTRIBUTION IN A REFERENCE POPULATION, HAS BEEN CONFIRMED THE DECISION THRESHOLD FOR NH DIAGNOSIS.Performed By: #### BMP, CMADM ####[facility] [address] [address]Dr. Sea RowlandO241 ng/mL Critically vufo88-60Luw [facility] on above:Performed By: #### BMP, CMADM ####[facility] [address] [address]. Sea Rachel AUTO DIFFon 45-84-1793NPUW #0.0 103/ulNormal0.0-0.1The [facility] HospitalComment on above:Performed By: #### CBC #### [facility] [address] [address] [address] Sea Montgomerysophils/100 WBC (Bld)0.3 %Normal0.2-2.0The [facility] Comment on above:Performed By: #### CBC #### [facility] [address] [address] [address] Sea Torre #0.2 103/ulNormal0.0-0.7The [facility] on above: Performed By: #### CBC #### [facility] [address] [address] [address] Sea Fordosinophils/100 WBC (Bld)1.4 %Normal0.9-7.0[facility] Comment on above:Performed By: #### CBC #### [facility] [address] [place] [address] Dr. Sea Fordrythrocyte distribution width (RBC) [Ratio]13.5 %Utmtrg16.0-15.0 [facility] HealthcareComment on above:Performed By: #### CBC #### [facility] [address] [place] [address] Dr. Sea PughHematocrit (Bld) [Volume fraction]37.5 %Critically low42.0-54.0 [facility] HealthcareComment on above:Performed By: #### CBC #### [facility] [address] [place] [address] Dr. Sea PughHemoglobin (Bld) [Mass/Vol]13.4 g/dLCritically low14.0-18.0Uk HealthcareComment on above:Performed By: #### CBC #### [facility] [address] [place] [address] Dr. Sea Anguiano #0.08 10e3/ulCritically high0.00-0.03[facility] Comment on above:Performed By: #### CBC #### [facility] [address] [place] [address] Dr. Sea Anguiano %0.7 %Critically high0.0-0.5ThTriHealth Good Samaritan HospitalComment on above:Performed By: #### CBC #### [facility] [address] [place] [address] Dr. Sea Galeano #1.1 103/ulCritically low1.2-3.8The [facility] Comment on above:Performed By: #### CBC #### [facility] [address] [place] [address] Dr. Sea Novamphocytes/100 WBC (Bld)8.7 %Critically low20.5-60.0Uk HealthcareComment on above:Performed By: #### CBC #### [facility] [address] [place] [address] Dr. Sea Merino DIFF REQNONormalThe [facility] HospitalComment on above: Performed By: #### CBC #### [facility] [address] [place] [address] Dr. Sea Steele (RBC) [Entitic mass]30.0 ewQpoeqc08.9-34.0The [facility] HospitalComment on above:Performed By: #### CBC #### [facility] [address] [place] [address] Dr. Sea Steele (RBC) [Mass/Vol]35.7 g/dLCritically high29.9-35.2The [facility] HospitalComment on above:Performed By: #### CBC #### [facility] [address] [place] [address] Dr. Sea Izaguirre (RBC) [Entitic vol]84.1 lEKeizgy68.0-94.0The [facility] HospitalComment on above:Performed By: #### CBC #### [facility] [address] [place] [address] Dr. Sea Rain #0.8 103/ulNormal0.3-0.8The [facility] HospitalComment on above:Performed By: #### CBC #### [facility] [address] [place] [address] Dr. Sea Bansalocytes/100 WBC (Bld)6.8 %Normal1.7-12.0[facility] Comment on above:Performed By: #### CBC #### [facility] [address] [place] [address] Dr. Sea Zapata #10.0 103/ulCritically high1.4-6.5The [facility] Comment on above:Performed By: #### CBC #### [facility] [address] [place] [address] Dr. Sea Díazutrophils/100 WBC (Bld)82.1 %Critically high43.0-75.0The [facility] HospitalComment on above:Performed By: #### CBC #### [facility] [address] [place] [address] Dr. Sea Santacruzlet mean volume (Bld) [Entitic vol]9.2 fLCritically low 9.5-13.5The [facility] HospitalComment on above:Performed By: #### CBC #### [facility] [address] [place] [address] Dr. Sea PughPLT203 103/ggMfvcph206-438Hjr [facility] HospitalComment on above: Performed By: #### CBC #### [facility] [address] [address] [address] Sea PughRBC4.46 106/ulCritically low4.70-6.10The [facility] HospitalComment on above:Performed By: #### CBC #### [facility] [address] [place] [address] Dr. Sea PughWBC12.1 103/ulCritically high4.0-11.0The [facility] HospitalComment on above:Performed By: #### CBC #### [facility] [address] [place] [address] Dr. Sea PughCT CSPINE WO CONon 48-15-1923ME CSPINE WO CONEXAMINATION: CT CSPINE WO CON HISTORY: Syncope COMPARISON: [...] Electronically authenticated by: REINA GOMEZ Date: 2022-04-19 20:22NoCommunity [facility] CenterCT STROKE HEAD WOon 15-36-2407RG STROKE HEAD WONONCONTRAST CT SCAN OF THE HEAD CT STROKE [...] Electronically authenticated by: OBI MIDDLETON Date: 2022-04-19 20:[address] [place] [address] CHEST WO W CONon [id number] CHEST WO W CON EXAMINATION:CTA CHEST WO W CON INDICATION:Syncope COMPARISON:12/06/2021 TECHNIQUE:Thin section [...] Electronically authenticated by: RIC MOON Date: 2022-04-19 21:52[facility] CenterD-DIMERon 52-06-9638P-DIMER2.01 mg/L FEUCritically high<=0.59 The [facility] Hospitalment on above:Performed By: #### DDIM #### [facility] [address] [address] [address] Sea Castro-DIMER COMMENTSSEE BELOWOhioHealth Grady Memorial Hospital on above:Result Comment: Increases in D-Dimer concentration observed with thromboembolic events [...] stress, and generalized hospitalization. Performed By: #### DDIM #### [facility] [address] [address] [address] Sea PughPROF CHEM 8 (BAS METB)on 21-01-4711Sugwr gap [Moles/Vol]19.2 mmol/LNormalThe [facility] on above:Performed By: #### DALE, DOUGIEDM ####[facility] [address] [address]Dr. Sea ChangCalcium [Mass/Vol]9.1 mg/dLNormal8.5-10.1The [facility] on above:Performed By: #### DALE, CMADM ####[facility] [address] [address]Dr. Sea ChangChloride [Moles/Vol]98 mmol/L Sctsao46-292Pta [facility] on above:Performed By: #### DALE, CMADM ####[facility] [address] [address]DrMook Osei ChangCO2 [Moles/Vol]21.4 mmol/YSczmnm09.0-32.0The [facility]ópez HospitalComment on above:Performed By: #### DALE, CMADM ####[facility] [address] [id number]. Yilan ChangCreatinine [Mass/Vol]1.45 mg/dLCritically high0.70-1.30The [facility] HospitalComment on above:Performed By: #### DALE, CMADM ####[facility] [address] [id number]. Yilan ChangEGFR-AF OGSXWEUX44 mL/min/1.29x4Kylkgxoopl low>=60The [facility] HospitalComment on above:Performed By: #### DALE, CMADM ####[facility] N[address] [place], [place] [id number]. Yilan ChangEGFR- NON AF TAEEHTJJ15 mL/min/1.07a2Ueesnohajl low>=60The [facility] HospitalComment on above:Performed By: #### DALE, CMADM ####[facility] [address] [place], [place] [phone]. Yilan ChangGlucose [Mass/Vol]221 mg/dL Critically bgdo39-820Aqm [facility] HospitalComment on above:Performed By: #### DALE, CMADM ####[facility] Y[address]im[address] [place], [place] [phone]. Yilan ChangPotassium [Moles/Vol]3.6 mmol/LNormal3.5-5.1The [facility] HospitalComment on above:Performed By: #### DALE, CMADM ####[facility] [address] [place], [place] [phone]. Yilan ChangSodium [Moles/Vol]135 mmol/LCritically ylz503-561Ipf [facility] HospitalComment on above: Performed By: #### DALE, CMADM ####[facility] E[address]ix[address] [place], [place] [phone]. Yilan ChangUrea nitrogen [Mass/Vol]12.0 mg/dL Normal7.0-18.0The [facility] HospitalComment on above:Performed By: #### DALE, CMADM ####[facility] [address] [place] [address]Dr. Sea PughUrea nitrogen/Creatinine [Mass ratio]8.3 mg/mgNoKindred Hospital Dayton on above:Performed By: #### BMP, CMADM ####[facility] [address] [place], [place] [address]Il. Sea PughXR CHEST 1 Von [id number] CHEST 1 VEXAMINATION: XR CHEST 1 V HISTORY: Left arm weakness and tingling. 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 COMPARISON: 09/22/2021 portable chest TECHNIQUE: Portable chest FINDINGS: The lung parenchyma is free of consolidation or infiltrate. No pneumothorax or pleural effusion. The cardiac, mediastinal and hilar contours are normal. The visualized osseous structures exhibit no gross abnormality. IMPRESSION: No acute cardiopulmonary abnormality. Electronically authenticated by: REINA GOMEZ Date: 2022-04-19 20:12[facility] CenterXR MODIFIED BARIUM SWALLOWon [id number] MODIFIED BARIUM SWALLOWEXAMINATION: XR MODIFIED BARIUM SWALLOW HISTORY: Dysphagia as [...] Electronically authenticated by: REINA GO Date: 2021-12-20 10:49[facility] CenterCARDIAC SRINIVASAN 3-6on [id number] [Catalytic activity/Vol]63 U/L Kgkljn19-849Xkm [facility] on above:Performed By: #### CMREP ####[facility] [address] [place], [place] [address]Df. Sea PughCK.MB [Mass/Vol]1.00 ng/mLNormal<=3.60The [facility] on above:Performed By: #### CMREP ####[facility] [address] [place], [place] [address]Kz. Sea PughHSTROP7.1 pg/mLNormal4.0-76.1The Hartford HospitalComment on above:Result Comment: CUT-OFF POINTS HAVE BEEN ESTABLISHED BASED ON THE FOURTH UNIVERSAL DEFINITIONS OF MYOCARDIAL INFARCTION. THE UPPER REFERENCE LIMIT (URL) OF TROPONIN, DEFINED THE 99TH PERCENTILE OF cTnI DISTRIBUTION IN A REFERENCE POPULATION, HAS BEEN CONFIRMED THE DECISION THRESHOLD FOR [place] DIAGNOSIS.Performed By: #### CMREP ####[facility] [address] [address]Dr. Sea Boles SRINIVASAN ADMITon [id number] [Catalytic activity/Vol]66 U/WPxjxld89-692Qod [facility] Comment on above:Performed By: #### DDIM #### [facility] [address] [address] [address] Sea Dailey.MB [Mass/Vol]0.93 ng/mLNormal<=3.60[facility] Comment on above:Performed By: #### DDIM #### [facility] [address] [place] [address] Dr. Sea PughHSTROP8.2 pg/mLNormal4.0-76.1The [facility] on above:Result Comment: CUT-OFF POINTS HAVE BEEN ESTABLISHED BASED ON THE FOURTH UNIVERSAL DEFINITIONS OF MYOCARDIAL INFARCTION. THE UPPER REFERENCE LIMIT (URL) OF TROPONIN, DEFINED THE 99TH PERCENTILE OF cTnI DISTRIBUTION IN A REFERENCE POPULATION, HAS BEEN CONFIRMED THE DECISION THRESHOLD FOR NH DIAGNOSIS.Performed By: #### DDIM #### [facility] [address] [address] [address] Sea RowlandO62 ng/rCDnqohd45-67Ktj [facility] HospitalComment on above: Performed By: #### DDIM #### [facility] [address] [address] [address] Sea CampuzanoC AUTO DIFFon [id number] #0.0 103/ulNormal0.0-0.1The [facility] HospitalComment on above:Performed By: #### DDIM #### [facility] [address] [address] [address] Sea PughBasophils/100 WBC (Bld)0.3 %Normal0.2-2.0[facility] Comment on above:Performed By: #### DDIM #### [facility] [address] [place] [address] Dr. Sea Torre #0.5 103/ulNormal0.0-0.7The [facility] HospitalComment on above: Performed By: #### DDIM #### [facility] [address] [place] [address] Dr. Sea Fordosinophils/100 WBC (Bld)5.4 %Normal0.9-7.0[facility] Comment on above:Performed By: #### DDIM #### [facility] [address] [place] [address] Dr. Sea Fordrythrocyte distribution width (RBC) [Ratio]13.7 %Kgqhen04.0-15.0 [facility] HealthcareComment on above:Performed By: #### DDIM #### [facility] [address] [place] [address] Dr. Sea PughHematocrit (Bld) [Volume fraction]34.9 %Critically low42.0-54.0 [facility] HealthcareComment on above:Performed By: #### DDIM #### [facility] [address] [place] [address] Dr. Sea PughHemoglobin (Bld) [Mass/Vol]12.2 g/dLCritically low14.0-18.0[facility] HealthcareComment on above:Performed By: #### DDIM #### [facility] [address] [place] [address] Dr. Sea Anguiano #0.07 10e3/ulCritically high0.00-0.03The [facility] Comment on above:Performed By: #### DDIM #### [facility] [address] [place] [address] Dr. Sea Anguiano %0.7 %Critically high0.0-0.5ThTriHealth Good Samaritan HospitalComment on above:Performed By: #### DDIM #### [facility] [address] [place] [address] Dr. Sea Galeano #1.3 103/ulNormal1.2-3.8The [facility] HospitalComment on above:Performed By: #### DDIM #### [facility] [address] [place] [address] Dr. Sea Novamphocytes/100 WBC (Bld)13.5 %Critically low20.5-60.0The [facility] HospitalComment on above:Performed By: #### DDIM #### [facility] [address] [place] [address] Dr. Sea Merino DIFF REQNONormalThe [facility] HospitalComment on above: Performed By: #### DDIM #### [facility] [address] [place] [address] Dr. Sea Figueroa (RBC) [Entitic mass]30.5 trLsoeet83.9-34.0The [facility] HospitalComment on above:Performed By: #### DDIM #### [facility] [address] [place] [address] Dr. Sea Steele (RBC) [Mass/Vol]35.0 g/qXYvgdfw55.9-35.2The [facility] HospitalComment on above:Performed By: #### DDIM #### [facility] [address] [place] [address] Dr. Sea Steele (RBC) [Entitic vol]87.3 nXNdtebx12.0-94.0The [facility] HospitalComment on above:Performed By: #### DDIM #### [facility] [address] [place] [address] Dr. Sea Rain #1.3 103/ulCritically high0.3-0.8The [facility] Comment on above:Performed By: #### DDIM #### [facility] [address] [place] [address] Dr. Sea Bansalocytes/100 WBC (Bld)12.9 %Critically high1.7-12.0The [facility] HospitalComment on above:Performed By: #### DDIM #### [facility] [address] [place] [address] Dr. Sea DíazUT #6.7 103/ulCritically high1.4-6.5The [facility] Comment on above:Performed By: #### DDIM #### [facility] [address] [place] [address] Dr. Sea Díazutrophils/100 WBC (Bld)67.2 %Ypwmcy05.0-75.0The [facility] HospitalComment on above:Performed By: #### DDIM #### [facility] [address] [place] [address] Dr. Sea PughPlatelet mean volume (Bld) [Entitic vol]9.7 fLNormal9.5-13.5The [facility] HospitalComment on above:Performed By: #### DDIM #### [facility] [address] [place] [address] Dr. Sea PughPLT226 103/cgGuncmj118-085Myu [facility] HospitalComment on above: Performed By: #### DDIM #### [facility] [address] [place] [address] Dr. Sea PughRBC4.00 106/ulCritically low4.70-6.10The [facility] HospitalComment on above:Performed By: #### DDIM #### [facility] [address] [place] [address] Dr. Sea PughWBC10.0 103/ulNormal4.0-11.0The [facility] HospitalComment on above:Performed By: #### DDIM #### [facility] [address] [place] [address] Dr. Sea Schultz CHEST WO W CONon [id number] CHEST WO W CONEXAMINATION: CTA CHEST WO W CON HISTORY: SHORTNESS [...] Electronically authenticated by: OSITO CUELLO Date: 2021-12-06 01:29[facility] CenterD-DIMERon [id number]-DIMER1.11 mg/L FEUCritically high<=0.59 The [facility] HospitalComment on above:Performed By: #### DDIM #### [facility] [address] [address] [address] Sea Castro-DIMER COMMENTSSEE BELOWGalion Community Hospitalment on above:Result Comment: Increases in D-Dimer concentration observed with thromboembolic events [...] stress, and generalized hospitalization. Performed By: #### DDIM #### [facility] [address] [address] [address] Sea PughPROF CHEM 8 (BAS METB)on [id number] gap [Moles/Vol]9.5 mmol/LNormalThe [facility] HospitalComment on above:Performed By: #### HSTROPN, CMP, CRP #### [facility] [address] [address] [address] Sea PughCalcium [Mass/Vol]8.6 mg/dLNormal8.5-10.1[facility] Comment on above:Performed By: #### HSTROPN, CMP, CRP #### [facility] [address] [address] [address] Sea PughChloride [Moles/Vol]100 mmol/KBpzdup71-154Xqe [facility] Comment on above:Performed By: #### HSTROPN, CMP, CRP #### [facility] [address] [place] [address] Dr. Sea PughCO2 [Moles/Vol]25.8 mmol/FIoderi13.0-32.0[facility] Comment on above:Performed By: #### HSTROPN, CMP, CRP #### [facility] [address] [address] [address] Sea PughCreatinine [Mass/Vol]1.12 mg/dLNormal0.70-1.30The [facility] HospitalComment on above:Performed By: #### HSTROPN, CMP, CRP #### [facility] [address] [place] [address] Dr. Sea FordGFR-AF SRI LANKAN>60Normal>=60The [facility] Hospitalment on above:Performed By: #### HSTROPN, CMP, CRP #### [facility] [address] [place] [address] Dr. Sea FordGFR-NON AF SRI LANKAN>60Normal>=60The [facility] HospitalComment on above:Performed By: #### HSTROPN, CMP, CRP #### [facility] [address] [place] [address] Dr. Sea PughGlucose [Mass/Vol]201 mg/dLCritically pcbz15-870Qim [facility] HospitalComment on above:Performed By: #### HSTROPN, CMP, CRP #### [facility] [address] [address] [address] Sea PughPotassium [Moles/Vol]3.3 mmol/LCritically low3.5-5.1The [facility] HospitalComment on above:Performed By: #### HSTROPN, CMP, CRP #### [facility] [address] [address] [address] Sea PughSodium [Moles/Vol]132 mmol/LCritically jgj130-671Amq [facility] HospitalComment on above:Performed By: #### HSTROPN, CMP, CRP #### [facility] [address] [address] [address] Sea PughUrea nitrogen [Mass/Vol]16.0 mg/dLNormal7.0-18.0The [facility] HospitalComment on above:Performed By: #### HSTROPN, CMP, CRP #### [facility] [address] [address] [address] Sea PughUrea nitrogen/Creatinine [Mass ratio]14.3 mg/mgNormalThe [facility] HospitalComment on above:Performed By: #### HSTROPN, CMP, CRP #### [facility] [address] [address] [address] Sea Montgomerysic Metabolic Panelon [id number] gap [Moles/Vol]12 mmol/L9 - 17 mmol/LBON SECOURS MERCY HEALTHCalcium [Mass/Vol]8.3 mg/dLLow8.6 - 10.4 mg/dLBON SECOURS MERCY HEALTHChloride [Moles/Vol]100 mmol/L98 - 107 mmol/LBON SECOURS MERCY HEALTHCO2 [Moles/Vol]21 mmol/L20 - 31 mmol/LBON SECOURS MERCY HEALTHCreatinine [Mass/Vol]0.69 mg/dLLow0.7 - 1.2 mg/dLBON SECOURS MER[facility]ALTH GFR >6060 - PINF mL/minBON SECOURS MERCY HEALTHGFR Non->6060 - PINF mL/minBON SECOURS MERCY HEALTHGFR/1.73 sq M.predicted MDRD (S/P/Bld) [Vol rate/Area][facility]ICComment on above:Average GFR for 70 or more years old: 75 mL/min/1.73sq m Chronic Kidney Disease: <60 mL/min/1.73sq m Kidney failure: <15 mL/min/1.73sq m eGFR calculated using average adult body mass. Additional eGFR calculator available at: http://www.[employer]/multiple_crcl_2011.htm Glucose [Mass/Vol]138 mg/zPTwwm39 - 99 mg/dLBON [facility] Interpretation and review of laboratory resultsAbnormalCARILION CLINIC Potassium [Moles/Vol]4.0 mmol/L3.7 - 5.3 mmol/LBON [facility] DOCTORS HOSPITALSodium [Moles/Vol]133 mmol/JMas680 - 144 mmol/LBON [facility]CTORS HOSPITALUrea nitrogen (BldV) [Mass/Vol]12 mg/dL8 - 23 mg/dLBON BLACK HILLS SURGERY CENTERBasic Metabolic Profon 12-04-2021(cont.)NormalMemorial Health SystemComment on above:Result Comment: Average GFR for 70 or more years old: 75 mL/min/1.73sq m Chronic Kidney Disease: <60 mL/min/1.73sq m Kidney failure: <15 mL/min/1.73sq m eGFR calculated using average adult body mass. Additional eGFR calculator available at: http://www.[employer]/multiple_crcl_2011.htmPerformed By: #### DALE MALDONADO, CDP #### [facility] [address] [phone] Retail Support Specialist: Afshin Mansfield MDAnion gap [Moles/Vol]12 mmol/LNormal9-17[facility]orial Health SystemComment on above:Performed By: #### DALE MALDONADO, CDP #### [employer] [address] [place], [place] [phone] Retail Support Specialist: WOODROW Westfallalcium [Mass/Vol]8.3 mg/dLLow8.6-10.4[facility]orial Health SystemComment on above:Performed By: #### DALE MALDONADO, CDP #### [facility] [address] [place] [address] Retail Support Specialist: WOODROW Westfallhloride [Moles/Vol]100 mmol/HXtrees66-065LcfqyMemorial Health SystemComment on above:Performed By: #### DALE MALDONADO, CDP #### [facility] [address] [place] [address] Retail Support Specialist: Afshin Mansfield MDCO2 [Moles/Vol]21 mmol/QFmbnhi04-63WvmwsMemorial Health SystemComment on above:Performed By: #### DALE MALDONADO, CDP #### [facility] [address] [place] [address] Retail Support Specialist: WOODROW Westfallreatinine [Mass/Vol]0.69 mg/dLLow0.70-1.20[facility]orial Health SystemComment on above:Performed By: #### DALE MALDONADO, CDP #### [facility] [address] [place] [address] Retail Support Specialist: Afshin Mansfield MDGFR, Amer>60Normal>60[facility]orial Health SystemComment on above:Performed By: #### DALE MALDONADO, CDP #### [facility] [address] [place] [address] Retail Support Specialist: Afshin Mansfield MDGFR,non Amer>60Normal>60[facility] Health SystemComment on above:Performed By: #### DALE MALDONADO, CDP #### [facility] [address] [place] [address] Retail Support Specialist: Afshin Mansfield MDGlucose [Mass/Vol]138 mg/tUUhjf10-13YbfiaEden Medical CenterComment on above:Performed By: #### DALE MLADONADO, CDP #### [facility] [address] [place] [address] Retail Support Specialist: JOJO Westfallotassium [Moles/Vol]4.0 mmol/LNormal3.7-5.3 [facility] Health SystemComment on above:Performed By: #### DALE MALDONADO, CDP #### [facility] [address] [place] [address] Retail Support Specialist: KRISTIAN Westfallodium [Moles/Vol]133 mmol/DLun767-353PcpimMemorial Health SystemComment on above:Performed By: #### DALE MALDONADO, CDP #### [facility] [address] [place] [address] Retail Support Specialist: Afshin Mansfield MDUrea nitrogen [Mass/Vol]12 mg/dLNormal8-23Memorial Health SystemComment on above:Performed By: #### DALE MALDONADO, CDP #### [facility] [address] [place] [address] Retail Support Specialist: Afshin Mansfield [facility] BROKEN ARROWBC with Auto Differentialon [id number] Eos #0.64HighBON SECOURS MERCY HEALTHAbsolute Immature Granulocyte0.06[facility] HEALTHAbsolute Lymph #1.09LowBON SECOURS MERCY HEALTHAbsolute [place] #1.29HighBON SECOURS MERCY HEALTHBasophils (Bld) [#/Vol]0.04 10*3/uLBON SECOURS MERCY HEALTHBasophils/100 WBC (Bld)0 %0 - 2 %[facility] Eosinophils/100 WBC (Bld)6 %High1 - 4 %[facility]CY HEALTHHematocrit (Bld) [Volume fraction]36.1 %Low40.7 - 50.3 %[facility]CY HEALTHHemoglobin (Bld) [Mass/Vol]12.6 g/dLLow13 - 17 g/dLBON SECOURS MERCY HEALTHImmature granulocytes/100 WBC (Bld)1 %Nwja3WLT SECOURS MERCY HEALTHInterpretation and review of laboratory resultsAbnormalBON SECOURS MERCY HEALTHLymphocytes/100 WBC (Bld)9 %Low24 - 43 %BON [facility]ALTH SYSTEMH (RBC) [Entitic mass]30.1 pg25.2 - 33.5 pgBON ADENA HEALTH SYSTEMHC (RBC) [Mass/Vol]34.9 g/lMGysk49.4 - 34.8 g/dLBON SECOHIOHEALTH SHELBY HOSPITALV (RBC) [Entitic vol]86.2 fL82.6 - 102.9 fLCARILION CLINICMonocytes/100 WBC (Bld)11 %3 - 12 %[facility] NRBC Automated0.00.0 per 100 WBCBON OHIOHEALTH DOCTORS HOSPITALPlatelet distribution width (Bld) [Ratio]13.6 %11.8 - 14.4 %BON [facility]CTORS HOSPITALPlatelet mean volume (Bld) [Entitic vol]9.8 fL8.1 - 13.5 fLBON [facility] HEALTHPlatelets (Bld) [#/Vol]212 10*3/uLBON [facility] DOCTORS HOSPITALRBC (Bld) [#/Vol]4.19 10*6/uLLow 4.21 - 5.77 m/uLCARILION CLINICSegmented neutrophils/100 WBC (Bld)73 % High36 - 65 %BON [facility] DOCTORS HOSPITALSegs Absolute8.59HighBON [facility]IOHEALTH DOCTORS HOSPITALWBC (Bld) [#/Vol]11.7 10*3/uLHighBON BLACK HILLS SURGERY CENTERCBC with Diffon 10-03-1006Kma. Basophil0.04 k/uLNormal0.00-0.20[facility]orial Health SystemComment on above:Performed By: #### DALE MALDONADO, CDP #### [facility] [address] [place], [place] [phone] Retail Support Specialist: Virgil Westfall.Imm.Granulocyte0.06 k/uLNormal0.00-0.30[facility]orial Health SystemComment on above:Performed By: #### DALE MALDONADO, CDP #### [employer] [address] [place], [place] [phone] Retail Support Specialist: Virgil Westfall.Neutrophil (Seg)8.59 k/uLHigh1.50-8.10[facility] Health SystemComment on above:Performed By: #### DALE MALDONADO, CDP #### [facility] [address] [place] [address] Retail Support Specialist: Afshin Mansfield MDBasophils/100 WBC (Bld)0 %Normal0-2MHoag Memorial Hospital PresbyterianComment on above:Performed By: #### DALE MALDONADO, CDP #### [facility] [address] [place] [address] Retail Support Specialist: Afshin Mansfield MDEosinophils (Bld) [#/Vol]0.64 10*3/uLHigh 0.00-0.44[facility]orial Health SystemComment on above:Performed By: #### DALE MALDONADO, CDP #### [facility] [address] [place] [address] Retail Support Specialist: IMNERVA Westfallosinophils/100 WBC (Bld)6 %High1-4[facility]orial Health SystemComment on above:Performed By: #### DALE MALDONADO, CDP #### [facility] [address] [place] [address] Retail Support Specialist: Afshin Mansfield MDErythrocyte distribution width (RBC) [Ratio]13.6 %Qytgrd85.8-14.4[facility] Health SystemComment on above:Performed By: #### DALE MALDONADO, CDP #### [facility] [address] [place] [address] Retail Support Specialist: Afshin Mansfield MDHematocrit (Bld) [Volume fraction]36.1 %Low 40.7-50.3MHoag Memorial Hospital PresbyterianComment on above:Performed By: #### DALE MALODNADO, CDP #### [facility] [address] [place] [address] Retail Support Specialist: Afshin Mansfield MDHemoglobin (Bld) [Mass/Vol]12.6 g/dLLow13.0-17.0 [facility] Health SystemComment on above:Performed By: #### DALE MALDONADO, CDP #### [facility] [address] [place] [address] Retail Support Specialist: Afshin Mansfield MDImmature granulocytes/100 WBC (Bld)1 %Prgb3ViocrMemorial Health SystemComment on above:Performed By: #### DALE MALDONADO, CDP #### [facility] [place] [address] Retail Support Specialist: Afshin Mansfield MDLymphocytes (Bld) [#/Vol]1.09 10*3/uLLow 1.10-3.70[facility]orial Health SystemComment on above:Performed By: #### DALE MALDONADO, CDP #### [facility] [place] [address] Retail Support Specialist: Vijay Westfallmphocytes/100 WBC (Bld)9 %Hpq55-11TgwyxMemorial Health SystemComment on above:Performed By: #### DALE MALDONADO, CDP #### [facility] [place] [address] Retail Support Specialist: BRITTANY WestfallCH (RBC) [Entitic mass]30.1 foXyjfpd42.2-33.5 [facility] Health SystemComment on above:Performed By: #### DALE MALDONADO, CDP #### [facility] [place] [address] Retail Support Specialist: CONNIE WestfallC (RBC) [Mass/Vol]34.9 g/vYGgjh35.4-34.8Memorial Health SystemComment on above:Performed By: #### DALE MALDONADO, CDP #### [facility] [place] [address] Retail Support Specialist: BRITTANY WestfallCV (RBC) [Entitic vol]86.2 xGPxchov09.6-102.9 [facility] SystemComment on above:Performed By: #### DALE MALDONADO, CDP #### [address] [address] Retail Support Specialist: BRITTANY Westfallonocytes (Bld) [#/Vol]1.29 10*3/uLHigh0.10-1.20 [facility] SystemComment on above:Performed By: #### DALE MALDONADO, CDP #### [facility] [place] [address] Retail Support Specialist: BRITTANY Westfallonocytes/100 WBC (Bld)11 %Normal3-12Mem[facility] Health SystemComment on above:Performed By: #### DALE MALDONAOD, CDP #### [facility] [place] [address] Retail Support Specialist: Pravin Westfallophil (Seg)73 %Klpb48-69WkrxaMemorial Health SystemComment on above:Performed By: #### DALE MALDONADO, CDP #### [facility] [place] [address] Retail Support Specialist: Afshin Mansfield MDNRBC Automated0.0 per 100 WBCNormal0.0Mem[facility] Health SystemComment on above:Performed By: #### DALE MALDONADO, CDP #### [facility] [place] [address] Retail Support Specialist: JOJO Westfalllatelet mean volume (Bld) [Entitic vol]9.8 fL Normal8.1-13.5[facility] Health SystemComment on above:Performed By: #### DALE MALDONADO, CDP #### [facility] Share[address] [place] [address] Retail Support Specialist: JOJO Westfalllatelets (Bld) [#/Vol]212 10*3/mQQpihpw957-719 [facility] SystemComment on above:Performed By: #### DALE MALDONADO, CDP #### [facility] [address] [place] [address] Retail Support Specialist: KEIKO WestfallBC (Bld) [#/Vol]4.19 10*6/uLLow4.21-5.77Memorial Health SystemComment on above:Performed By: #### DALE MALDONADO, CDP #### [facility] [address] [place] [address] Retail Support Specialist: XANDER Westfall (Bld) [#/Vol]11.7 10*3/uLHigh3.5-11.3MHoag Memorial Hospital PresbyterianComment on above:Performed By: #### DALE MALDONADO, CDP #### [facility] [address] [place] [address] Retail Support Specialist: JEANETTE Westfall Glucose Fingerstickon 18-26-3372Lybwvnf [Mass/Vol]110 mg/dL75 - 110 mg/dLBON [facility] DOCTORS HOSPITALBON [facility]CTORS HOSPITALBasic Metabolic Panelon 77-63-4285Hopou gap [Moles/Vol]14 mmol/L9 - 17 mmol/LBON SECOHIOHE[facility] HARDIN MEM[facility]IAL HOSPITALCalcium [Mass/Vol]8.0 mg/dLLow8.6 - 10.4 mg/dLBON [facility] HOSPITALChloride [Moles/Vol]101 mmol/L98 - 107 mmol/LBON [facility] UNION HOSPITALCO2 [Moles/Vol]18 mmol/LLow20 - 31 mmol/LBON [facility] Creatinine [Mass/Vol]0.67 mg/dLLow0.7 - 1.2 mg/dLBON SECOHIOHEALTH HARDIN MEMORIAL HOSPITALGFR >6060 - PINF mL/minBON SEC[facility] HEALTHGFR Non->6060 - PINF mL/minBON [facility] HEALTHGFR/1.73 sq M.predicted MDRD (S/P/Bld) [Vol rate/Area][facility] CLINICComment on above:Average GFR for 70 or more years old: 75 mL/min/1.73sq m Chronic Kidney Disease: <60 mL/min/1.73sq m Kidney failure: <15 mL/min/1.73sq m eGFR calculated using average adult body mass. Additional eGFR calculator available at: http://www.The Combine/multiple_crcl_2011.htm Glucose [Mass/Vol]156 mg/oDUeer83 - 99 mg/dLBON [facility] Interpretation and review of laboratory resultsAbnormalCARILION CLINIC Potassium [Moles/Vol]3.9 mmol/L3.7 - 5.3 mmol/LBON [facility] DOCTORS HOSPITALSodium [Moles/Vol]133 mmol/DAjd728 - 144 mmol/LBON [facility]CTORS HOSPITALUrea nitrogen (BldV) [Mass/Vol]12 mg/dL8 - 23 mg/dLBON BL[facility]ILLS SURGERY CENTERBasic Metabolic Profon 12-03-2021(cont.)NormalMemorial Health SystemComment on above:Result Comment: Average GFR for 70 or more years old: 75 mL/min/1.73sq m Chronic Kidney Disease: <60 mL/min/1.73sq m Kidney failure: <15 mL/min/1.73sq m eGFR calculated using average adult body mass. Additional eGFR calculator available at: http://www.The Combine/Synthego_crcl_2011.htmPerformed By: #### DALE MALDONADO, CDP #### [facility] [address] [place], [place] [phone] Retail Support Specialist: Byron Westfall gap [Moles/Vol]14 mmol/LNormal9-17Memorial Health SystemComment on above:Performed By: #### DALE MALDONADO, CDP #### [facility] [address] [place] [address] Retail Support Specialist: Afshin Madoff, MDCalcium [Mass/Vol]8.0 mg/dLLow8.6-10.4Memorial Health SystemComment on above:Performed By: #### DALE MALDONADO, CDP #### [facility] [address] [place] [address] Retail Support Specialist: WOODROW Westfallhloride [Moles/Vol]101 mmol/NCmqqhv38-270TkukjMemorial Health SystemComment on above:Performed By: #### DALE MALDONADO, CDP #### [facility] [address] [place] [address] Retail Support Specialist: Afshin [place] MDCO2 [Moles/Vol]18 mmol/KKrr34-20RckgoMemorial Health SystemComment on above:Performed By: #### DALE MALDONADO, CDP #### [facility] [address] [place] [address] Retail Support Specialist: WOODROW Westfallreatinine [Mass/Vol]0.67 mg/dLLow0.70-1.20Memorial Health SystemComment on above:Performed By: #### DALE MALDONADO, CDP #### [facility] [address] [place] [address] Retail Support Specialist: Afshin [place] MDGFR, Amer>60Normal>60Memorial Health SystemComment on above:Performed By: #### DALE MALDONADO, CDP #### [facility] [address] [place] [address] Retail Support Specialist: Afshin [place] MDGFR,non Amer>60Normal>60Memorial Health SystemComment on above:Performed By: #### DALE MALDONADO, CDP #### [facility] [address] [place] [address] Retail Support Specialist: Afshin [place] MDGlucose [Mass/Vol]156 mg/iOKvvh93-52TejutEden Medical CenterComment on above:Performed By: #### DALE MALDONADO, CDP #### [facility] [address] [place] [address] Retail Support Specialist: JOJO Westfallotassium [Moles/Vol]3.9 mmol/LNormal3.7-5.3 [facility] Health SystemComment on above:Performed By: #### DALE MALDONADO, CDP #### [facility] [address] [place] [address] Retail Support Specialist: Afshin [place] MDSodium [Moles/Vol]133 mmol/AOdd084-614YbcwyMemorial Health SystemComment on above:Performed By: #### DALE MALDONADO, CDP #### [facility] [address] [place] [address]179 Retail Support Specialist: Afshin [place] MDUrea nitrogen [Mass/Vol]12 mg/dLNormal8-23Memorial Health SystemComment on above:Performed By: #### DALE MALDONADO, CDP #### [facility] [place] [address] Retail Support Specialist: Afshin [place] [facility] with Auto Differentialon 78-35-9158Gsanuvhg Eos #0.54HighBON SECOURS MERCY HEALTHAbsolute Immature Granulocyte0.07B[facility] MERCY HEALTHAbsolute Lymph #1.07LowBON SECOURS MERCY HEALTHAbsolute [place] #1.20[facility]CY HEALTHBasophils (Bld) [#/Vol]0.03 10*3/uLBON [facility]OURS MERCY HEALTHBasophils/100 WBC (Bld)0 %0 - 2 %[facility] Eosinophils/100 WBC (Bld)5 %High1 - 4 %[facility] MERCY HEALTHHematocrit (Bld) [Volume fraction]37.0 %Low40.7 - 50.3 %[facility] MERCY HEALTHHemoglobin (Bld) [Mass/Vol]13.1 g/dL13 - 17 g/dLBON [facility]OU[facility] MERCY HEALTHImmature granulocytes/100 WBC (Bld)1 %Mmnk9DOK [facility]CTORS HOSPITALInterpretation and review of laboratory resultsAbnormalBON OHIOHEALTH DOCTORS HOSPITALLymphocytes/100 WBC (Bld)10 % Low24 - 43 %BON [facility] HEALTH SYSTEMH (RBC) [Entitic mass]30.8 pg25.2 - 33.5 pgBON ADENA HEALTH SYSTEMHC (RBC) [Mass/Vol]35.4 g/vMQotb33.4 - 34.8 g/dLBON SECOHIOHEALTH SHELBY HOSPITALV (RBC) [Entitic vol]87.1 fL82.6 - 102.9 fLBON [facility] DOCTORS HOSPITALMonocytes/100 WBC (Bld)11 %3 - 12 %BON [facility]CTORS HOSPITALNRBC Automated0.00.0 per 100 WBCCARILION CLINICPlatelet distribution width (Bld) [Ratio]13.7 %11.8 - 14.4 %BON [facility] DOCTORS HOSPITALPlatelet mean volume (Bld) [Entitic vol]10.6 fL8.1 - 13.5 fLSOVAH HEALTH - DANVILLE HEALTHPlatelets (Bld) [#/Vol]223 10*3/uLBON [facility] DOCTORS HOSPITALRBC (Bld) [#/Vol]4.25 10*6/uL4.21 - 5.77 m/uLCARILION CLINICSegmented neutrophils/100 WBC (Bld)73 %High36 - 65 %BON OHIO[facility]ALTH DOCTORS HOSPITALSegs Absolute8.06BON [facility] DOCTORS HOSPITALWBC (Bld) [#/Vol]11.0 10*3/uLBON BLACK HILLS SURGERY CENTERCBC with Diff on 85-46-3110Gbg. Basophil0.03 k/uLNormal0.00-0.20Memorial Health SystemComment on above:Performed By: #### DALE MALDONADO CDP #### [facility] [address] [place], [place] [phone] Retail Support Specialist: Virgil Westfall.Imm.Granulocyte0.07 k/uLNormal0.00-0.30Mem[facility] Health SystemComment on above:Performed By: #### DALE MALDONADO CDP #### [facility] [place] [address]21 Retail Support Specialist: Virgil Westfall.Neutrophil (Seg)8.06 k/uLNormal1.50-8.10 [facility] Health SystemComment on above:Performed By: #### DALE MALDONADO, CDP #### [address] [address] Retail Support Specialist: Afshin [place] MDBasophils/100 WBC (Bld)0 %Normal0-2MHoag Memorial Hospital PresbyterianComment on above:Performed By: #### DALE MALDONADO, CDP #### [address] [address] Retail Support Specialist: Afshin [place] MDEosinophils (Bld) [#/Vol]0.54 10*3/uLHigh 0.00-0.44Mem[facility] Health SystemComment on above:Performed By: #### DALE MALDONADO, CDP #### [facility] [place] [address] Retail Support Specialist: MINERVA Westfallosinophils/100 WBC (Bld)5 %High1-4[facility] Health SystemComment on above:Performed By: #### DALE MALDONADO, CDP #### [facility] [place] [address] Retail Support Specialist: Afshin [place] MDErythrocyte distribution width (RBC) [Ratio]13.7 %Amkimn61.8-14.4Mem[facility] Health SystemComment on above:Performed By: #### DALE MALDONADO, CDP #### [facility] [place] [address] Retail Support Specialist: Afshin [place] MDHematocrit (Bld) [Volume fraction]37.0 %Low 40.7-50.3MercEden Medical CenterComment on above:Performed By: #### DALE MALDONADO, CDP #### [facility] [address] [place] [address] Retail Support Specialist: Afshin [place] MDHemoglobin (Bld) [Mass/Vol]13.1 g/dLNormal 13.0-17.0Memorial Health SystemComment on above:Performed By: #### DALE MALDONADO, CDP #### [facility] [address] [place] [address] Retail Support Specialist: Afshin [place] MDImmature granulocytes/100 WBC (Bld)1 %Vycq2YislfMemorial Health SystemComment on above:Performed By: #### DALE MALDONADO, CDP #### [facility] [address] [place] [address] Retail Support Specialist: Afshin [place] MDLymphocytes (Bld) [#/Vol]1.07 10*3/uLLow 1.10-3.70Memorial Health SystemComment on above:Performed By: #### DALE MALDONADO, CDP #### [facility] [address] [place] [address]73 Retail Support Specialist: Vijay Westfallmphocytes/100 WBC (Bld)10 %Esf63-18MzwfhMemorial Health SystemComment on above:Performed By: #### DALE MALDONADO, CDP #### [facility] [address] [place] [address] Retail Support Specialist: BRITTANY WestfallCH (RBC) [Entitic mass]30.8 mjDydvtv53.2-33.5 [facility] Health SystemComment on above:Performed By: #### DALE MALDONADO, CDP #### [facility] [address] [place] [address]92 Retail Support Specialist: BRITTANY WestfallCHC (RBC) [Mass/Vol]35.4 g/hVCxdr99.4-34.8Memorial Health SystemComment on above:Performed By: #### DALE MALDONADO, CDP #### [facility] [address] [place] [address]65 Retail Support Specialist: BRITTANY WestfallCV (RBC) [Entitic vol]87.1 hPJbuuxv85.6-102.9 [facility] Health SystemComment on above:Performed By: #### DALE MALDONADO, CDP #### [facility] [address] [place] [address] Retail Support Specialist: BRITTANY Westfallonocytes (Bld) [#/Vol]1.20 10*3/uLNormal 0.10-1.20[facility] Health SystemComment on above:Performed By: #### DALE MALDONADO, CDP #### [facility] [place] [address] Retail Support Specialist: BRITTANY Westfallonocytes/100 WBC (Bld)11 %Normal3-12Memorial Health SystemComment on above:Performed By: #### DALE MALDONADO, CDP #### [address] [address] Retail Support Specialist: Pravin Westfallophil (Seg)73 %Vlzg16-47MukdrMemorial Health SystemComment on above:Performed By: #### DALE MALDONADO, CDP #### [facility] [place] [address] Retail Support Specialist: MARIE Westfall Automated0.0 per 100 WBCNormal0.0Memorial Health SystemComment on above:Performed By: #### DALE MALDONADO, CDP #### [facility] [place] [address] Retail Support Specialist: JOJO Westfalllatelet mean volume (Bld) [Entitic vol]10.6 fL Normal8.1-13.5Memorial Health SystemComment on above:Performed By: #### DALE MALDONADO, CDP #### [facility] [address] [place] [address] Retail Support Specialist: Chilango Westfall ([facility]) [#/Vol]223 10*3/fJVvmjud803-513 [facility] SystemComment on above:Performed By: #### DALE MALDONADO, CDP #### [facility] [address] [place] [address] Retail Support Specialist: KEIKO Westfall ([facility]) [#/Vol]4.25 10*6/uLNormal4.21-5.77 [facility] Health SystemComment on above:Performed By: #### DALE MALDONADO, CDP #### [facility] [address] [place] [address]68 Retail Support Specialist: XANDER Westfall ([facility]) [#/Vol]11.0 10*3/uLNormal3.5-11.3MHoag Memorial Hospital PresbyterianComment on above:Performed By: #### DALE MALDONADO, CDP #### [facility] [address] [place] [address] Retail Support Specialist: Vanessa Westfall,Bloodon 90-75-4959Rusx,BloodSpecimen Description .BLOOD Special Requests L HAND 20ML Culture NO GROWTH 5 DAYS Report Status FINAL 12/03/2021[facility] HospitalComment on above:Performed By: #### BC #### [facility] [address] [place] [address] Retail Support Specialist: Vanessa Westfall,BloodSpecimen Description .BLOOD Special Requests r hand 20ml Culture NO GROWTH 5 DAYS Report Status FINAL 12/03/2021[facility]ar[facility] HospitalComment on above:Performed By: #### DALE MALDONADO, CDP #### [facility] [address] [place] [address] Retail Support Specialist: Afshin Mansfield [facility] BROK[facility] ARROWulture, Blood 1on 12-08-0009Cqfucriy identified Cx Nom (Unsp spec)NO GROWTH 5 DAYSBON SECPROVIDENCE HEALTHY HEALTHSpecial RequestsL HAND 20MLBON SECGoo Technologies UK HEALTHCAREMeditope Biosciences HEALTHSpecimen Description.BLOODBON [facility] HEALTHBacteria identified Cx Nom (Unsp spec)NO GROWTH 5 DAYSBON [facility] HEALTHSpecial Requestsr hand 20mlBON [facility] HEALTH Specimen Description.BLOODBON [facility] HEALTHEKG 12 LeadOrdered By: Unknown Result on 86-00-4106Unfgup Uxtj71PDMEMK SECPROVIDENCE HEALTHMeditope Biosciences HEALTHQ-T Xexqfbvo470 msBON SECOURS UK HEALTHCAREMeditope Biosciences HEALTHQRS Useyafmf45 msBON SECOURS UK HEALTHCAREY HEALTHQTc Calculation (Bazett)516 msBON SECPROVIDENCE HEALTHY HEALTHR Axis23 degreesBON [facility] HEALTHT Hnkd22ipyvszeXEK [facility] HEALTH Ventricular Oicy00LQXSUJ [facility] HEALTHEKG 12 Lead on 22-27-9733Sjvnwk flutter with variable block Premature supraventricular complexes and fusion complexes Low voltage QRS Inferior 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) Prolonged QT Abnormal ECG When compared with ECG of 02-DEC-2021 03:02, Junctional rhythm has replaced Atrial fibrillation ST no longer depressed in Inferior leads ST no longer depressed in Anterior leadsMHPN STV MUSEResult, Unknown Provider - 12/03/2021 Atrial flutter with variable block Premature supraventricular complexes and fusion complexes Low voltage QRS Inferior 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) Prolonged QT Abnormal ECG When compared with ECG of 02-DEC-2021 03:02, Junctional rhythm has replaced Atrial fibrillation ST no longer depressed in Inferior leads ST no longer depressed in Anterior leads [facility] CENTERYouOS Work Phone: Osmolality, Urineon 42-48-8786Fdkrnizqvb - Aitxd945 mOsm/oeHblylj52-2532Arjoa Scripps Memorial HospitalComment on above:Performed By: #### IOCAL, BMP, CDP #### [facility] [address] [place] [address] Retail Support Specialist: Afshin [place] MDOsmolality, Uh005UUV [facility] SURGERY CENTERPOC Glucose Fingerstickon 38-24-5661Ozuayhf [Mass/Vol]151 mg/aDFkeo89 - 110 mg/dLBON [facility]CTORS HOSPITALInterpretation and review of laboratory resultsAbnormalCARILION [facility] Glucose [Mass/Vol]172 mg/zKFzyw99 - 110 mg/dLBON [facility] Interpretation and review of laboratory resultsAbnormalBON [facility] BON [facility]ORS HOSPITALGlucose [Mass/Vol]160 mg/aVZbeb53 - 110 mg/dLBON [facility]CTORS HOSPITALInterpretation and review of laboratory resultsAbnormalCARILION FRANKLIN MEMORIAL HOSPITALSODIUM, URINE, RANDOMon 60-55-9408Qmmtav (U) [Moles/Vol]154 mmol/LBON [facility] DOCTORS HOSPITALComment on above:No normal range established.BON [facility] DOCTORS HOSPITALSodium, Random Uron 79-14-3182Xftjnj (U) [Moles/Vol]154 mmol/LNormalMemorial Health SystemComment on above: Result Comment: No normal range established.Performed By: #### IOCAL, BMP, CDP #### [facility] [address] [place], [place] [address] Retail Support Specialist: Afshin [place] MDEKG 12 LeadOrdered By: Huan Mayo on 20-35-0106Mgkkmy Zmrx674AMNBSV [facility] [employer] Work Phone: Q-T Uixgnhre252 [facility] HEALTH Work Phone: QRS Mgmlffhe54 msSAINT JOSEPH'S HOSPITALGoo Technologies [facility] HEALTH Work Phone: QTc Calculation (Tktt)470 msBON [facility] HEALTH Work Phone: R Hjwm16shzvdmzBPQSOVAH HEALTH - DANVILLE [employer] Work Phone: T [place]-59degreesSOVAH HEALTH - DANVILLE HEALTH Work Phone: Ventricular [id number] [employer] Work Phone: BON [employer] Work Phone: ekG 12 Leadon 75-28-1044Hsqmkp fibrillation with rapid ventricular response with premature ventricular or aberrantly conducted complexes Low voltage QRS 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) ACUTE NH / STEMI Consider right ventricular involvement in acute inferior infarct Abnormal ECG When compared with ECG of 02-DEC-2021 03:02, T wave inversion no longer evident in Inferior leadsPN ST Huan Thrasher MD - 12/02/2021 Atrial fibrillation with rapid ventricular response with premature ventricular or aberrantly conducted complexes Low voltage QRS 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) ACUTE NH / STEMI Consider right ventricular involvement in acute inferior infarct Abnormal ECG When compared with ECG of 02-DEC-2021 03:02, T wave inversion no longer evident in Inferior leads [facility] JO[facility]'S HOSPITALCartago Software Work Phone: Magnesiumon 30-07-2966Eaapzsput [Mass/Vol]2.0 mg/dL Normal1.6-2.6[facility]ripp[facility] Memorial HospitalComment on above:Performed By: #### JOEL, BMP, CDP #### [facility] [address] [place], [place] [phone] Retail Support Specialist: Afshin [place]field MDMagnesium [Mass/Vol]2.0 mg/dL1.6 - 2.6 mg/dLBON [facility] KiptronicNo Panel Informationon 56-47-0265CMW [facility] Glucose Fingerstickon 41-11-6617Hfehred [Mass/Vol]164 mg/aCYzcx91 - 110 mg/dL S[facility] KiptronicInterpretation and review of laboratory resultsAbnormal CAR[facility]ANK[facility]OR[facility] HOSPITALGlucose [Mass/Vol]220 mg/dLHigh 75 - 110 mg/dLBON [facility] KiptronicInterpretation and review of laboratory resultsAbnormalCARILION FRANKLIN MEMORIAL HOSPITALGlucose [Mass/Vol]197 mg/hOPhpd52 - 110 mg/dLBON [facility] HOSPITALInterpretation and review of laboratory resultsAbnormalBON BL[facility] HILLS SURGERY CENTERGlucose [Mass/Vol]188 mg/mJUxfs69 - 110 mg/dLBON [facility] Interpretation and review of laboratory resultsAbnormalCARILION CLINIC BON [facility]CTORS HOSPITALPhosphoruson 48-54-3331Sjkvqspir [Mass/Vol]2.8 mg/dL2.5 - 4.5 mg/dLBON OHIO[facility]ALTH DOCTORS HOSPITALPhosphorus, Inorg.on 40-24-7988Papcyihfrr, Inorg.2.8 mg/dLNormal2.5-4.5Memorial Health SystemComment on above: Performed By: #### DALE MALDONADO, CDP #### [facility] [address] [place] [address] [phone] Retail Support Specialist: Binta Westfall 40-74-6014Kitpombt, High Sens15 ng/L Normal0-69Memorial Health SystemComment on above:Result Comment: High Sensitivity Troponin values cannot be compared with other Troponin methodologies. Patients with high levels of Biotin oral intake (i.e >5mg/day) may have falsely decreased Troponin levels. Samples collected within 8 hours of biotin intake may require additional information for diagnosis.Performed By: #### DALE MALDONADO, CDP #### [facility] [address] [place] [address] [phone] Retail Support Specialist: Quinton Westfall High Oubgdxmprgy53 ng/L0 - 22 ng/LBON [facility] DOCTORS HOSPITALComment on above: High Sensitivity Troponin values cannot be compared with other Troponin methodologies. Patients with high levels of Biotin oral intake (i.e >5mg/day) may have falsely decreased Troponin levels. Samples collected within 8 hours of biotin intake may require additional information for diagnosis. BON [facility] HEALTHTroponin, High Sens15 ng/LNormal0-22Memorial Health SystemComment on above:Result Comment: High Sensitivity Troponin values cannot be compared with other Troponin methodologies. Patients with high levels of Biotin oral intake (i.e >5mg/day) may have falsely decreased Troponin levels. Samples collected within 8 hours of biotin intake may require additional information for diagnosis.Performed By: #### JOEL, BMP, CDP #### [facility] [address] [place] [phone] Retail Support Specialist: Quinton Westfall, High Npmdtiquuio33 ng/L0 - 22 ng/LBON SECCartago SoftwareComment on above: High Sensitivity Troponin values cannot be compared with other Troponin methodologies. Patients with high levels of Biotin oral intake (i.e >5mg/day) may have falsely decreased Troponin levels. Samples collected within 8 hours of biotin intake may require additional information for diagnosis. [facility] Thin Profile TechnologiesBasic Metabolic Panelon 99-43-9839Entkc gap [Moles/Vol] 11 mmol/L9 - 17 mmol/LBON SECOURS Deetectee MicrosystemsY HEALTHCalcium [Mass/Vol]8.1 mg/dLLow8.6 - 10.4 mg/dLBON [facility]RS MERCY HEALTHChloride [Moles/Vol]102 mmol/L98 - 107 mmol/LBON [facility]RS MERCY HEALTHCO2 [Moles/Vol]19 mmol/LLow20 - 31 mmol/LBON SECOURS Deetectee MicrosystemsY HEALTHCreatinine [Mass/Vol]0.76 mg/dL0.7 - 1.2 mg/dLBON SECOURS Deetectee MicrosystemsY HEALTHGFR >6060 - PINF mL/minBON SECOURS Deetectee MicrosystemsY HEALTHGFR Non->6060 - PINF mL/minBON SECOURS Deetectee MicrosystemsY HEALTHGFR/1.73 sq M.predicted MDRD (S/P/Bld) [Vol rate/Area][facility] [employer] [facility] on above:Average GFR for 70 or more years old: 75 mL/min/1.73sq m Chronic Kidney Disease: <60 mL/min/1.73sq m Kidney failure: <15 mL/min/1.73sq m eGFR calculated using average adult body mass. Additional eGFR calculator available at: http://www.[employer]/multiple_crcl_2012.htm Glucose [Mass/Vol]176 mg/tABrio15 - 99 mg/dLBON [facility] Interpretation and review of laboratory resultsAbnormalCARILION CLINIC Potassium [Moles/Vol]4.2 mmol/L3.7 - 5.3 mmol/LBON [facility] DOCTORS HOSPITALSodium [Moles/Vol]132 mmol/YIhk083 - 144 mmol/LBON [facility] DOCTORS HOSPITALUrea nitrogen (BldV) [Mass/Vol]16 mg/dL8 - 23 mg/dLBON BLACK HILLS SURGERY CENTERBasic Metabolic Profon 12-01-2021(cont.)NormalMemorial Health SystemComment on above:Result Comment: Average GFR for 70 or more years old: 75 mL/min/1.73sq m Chronic Kidney Disease: <60 mL/min/1.73sq m Kidney failure: <15 mL/min/1.73sq m eGFR calculated using average adult body mass. Additional eGFR calculator available at: http://www.The Combine/multiple_crcl_2011.htmPerformed By: #### CDP, BMP #### [facility] [address] [place] [address] Retail Support Specialist: Byron Westfall gap [Moles/Vol]11 mmol/LNormal9-17Mem[facility] Health SystemComment on above:Performed By: #### CDP, BMP #### [facility] [address] [place] [address] Retail Support Specialist: WOODROW Westfallalcium [Mass/Vol]8.1 mg/dLLow8.6-10.4Mem[facility] Health SystemComment on above:Performed By: #### CDP, BMP #### [facility] [address] [place] [address] Retail Support Specialist: WOODROW Westfallhloride [Moles/Vol]102 mmol/RSftdtz12-274QsjxkMemorial Health SystemComment on above:Performed By: #### CDP, BMP #### [facility] [address] [place] [address] Retail Support Specialist: Afshin [place] MDCO2 [Moles/Vol]19 mmol/NQlc19-93JragqMemorial Health SystemComment on above:Performed By: #### CDP, BMP #### [address] [address] Retail Support Specialist: Afshin Mansfield MDCreatinine [Mass/Vol]0.76 mg/dLNormal0.70-1.20 [facility] Health SystemComment on above:Performed By: #### CDP, BMP #### [address] [address] Retail Support Specialist: Afshin Mansfield MDGFR, Amer>60Normal>60Memorial Health SystemComment on above:Performed By: #### BEBO, BMP #### [address] [address] Retail Support Specialist: MELVIN Westfall,non Amer>60Normal>60[facility] Health SystemComment on above:Performed By: #### BEBO, BMP #### [address] [address] Retail Support Specialist: Afshin Mansfield MDGlucose [Mass/Vol]176 mg/vLDsvi25-52YkowuEden Medical CenterComment on above:Performed By: #### CDP, BMP #### [address] [address] Retail Support Specialist: Afshin Mansfield MDPotassium [Moles/Vol]4.2 mmol/LNormal3.7-5.3 [facility] Health SystemComment on above:Performed By: #### CDP, BMP #### [address] [address] Retail Support Specialist: Afshin Mansfield MDSodium [Moles/Vol]132 mmol/TMgw694-391WbiiuMemorial Health SystemComment on above:Performed By: #### CDP, BMP #### [facility] [address] [place] [address] Retail Support Specialist: Afshin Mansfield MDUrea nitrogen [Mass/Vol]16 mg/dLNormal71 Bond StreetComment on above:Performed By: #### CDP, BMP #### [facility] [address] [place], [place] [phone] Retail Support Specialist: Afshin Mansfield [facility] with Auto Differentialon [id number] Eos #0.00[facility] HEALTHAbsolute Immature Granulocyte0.00[facility] HEALTHAbsolute Lymph #1.35[facility] HEALTHAbsolute [place] #1.80High [facility] HEALTHBasophils (Bld) [#/Vol]0.00 10*3/uLBON SECOURS MERCY HEALTHBasophils/100 WBC (Bld)0 %0 - 2 %[facility] HEALTHEosinophils/100 WBC (Bld)0 %Low1 - 4 %[facility] HEALTHHematocrit (Bld) [Volume fraction] 45.2 %40.7 - 50.3 %[facility] HEALTHHemoglobin (Bld) [Mass/Vol]15.6 g/dL 13 - 17 g/dLB[facility]RS MERCY HEALTHImmature granulocytes/100 WBC (Bld)0 %0[facility] HEALTHInterpretation and review of laboratory resultsAbnormalB[facility] MERCY HEALTHLymphocytes/100 WBC (Bld)9 %Low24 - 44 %[facility]H (RBC) [Entitic mass]30.5 pg25.2 - 33.5 pgBON [facility] HOSPITALHC (RBC) [Mass/Vol]34.5 g/dL28.4 - 34.8 g/dLB[facility] SECOURS MERCY HEALTHV (RBC) [Entitic vol]88.5 fL82.6 - 102.9 fLBON SECOURS MERCY HEALTHMonocytes/100 WBC (Bld)12 %High1 - 7 %[facility] HEALTHMorphology Callum (Bld) [Interp]Normal [facility] CLINICNRBC Automated0.00.0 per 100 WBCBON [facility] Platelet distribution width (Bld) [Ratio]13.8 %11.8 - 14.4 %B[facility]CTORS HOSPITALPlatelet mean volume (Bld) [Entitic vol]9.6 fL8.1 - 13.5 fLBON [facility] DOCTORS HOSPITALPlatelets (Bld) [#/Vol]235 10*3/uLBON SECOHIOHEALTH HARDIN MEMORIAL HOSPITALRBC (Bld) [#/Vol]5.11 10*6/uL4.21 - 5.77 m/uLBON [facility] DOCTORS HOSPITALSegmented neutrophils/100 WBC (Bld)79 %High36 - 66 %[facility] CLINICSegs Absolute 11.85HighBON [facility] DOCTORS HOSPITALWBC (Bld) [#/Vol]15.0 10*3/uLHighBON [facility] DOCTORS HOSPITALBON SECOHIOHEALTH HARDIN MEMORIAL HOSPITALCBC with Diffon [id number]. Basophil0.00 k/uLNormal0.0-0.2MercEden Medical CenterComment on above:Performed By: #### BEBO, BMP #### [facility] [address] [place] [address] Retail Support Specialist: Virgil Westfall.Imm.Granulocyte0.00 k/uLNormal0.00-0.30Memorial Health SystemComment on above:Performed By: #### BEBO, BMP #### [facility] [address] [place] [address] Retail Support Specialist: MDAbs. MalouNeutrophil (Seg)11.85 k/uLHigh1.8-7.7Mem[facility] Health SystemComment on above:Performed By: #### BEBO, BMP #### [facility] [address] [place] [address] Retail Support Specialist: Afshin Mansfield MDBasophils/100 WBC (Bld)0 %Normal0-2MercEden Medical CenterComment on above:Performed By: #### BEBO, BMP #### [facility] [address] [place] [address] Retail Support Specialist: Afshin Mansfield MDEosinophils (Bld) [#/Vol]0.00 10*3/uLNormal 0.0-0.4[facility] Health SystemComment on above:Performed By: #### CDP, BMP #### [facility] [address] [place] [address] Retail Support Specialist: MINERVA Westfallosinophils/100 WBC (Bld)0 %Low1-4[facility] Health SystemComment on above:Performed By: #### CDP, BMP #### [address] [address] Retail Support Specialist: Afshin Mansfield MDImmature granulocytes/100 WBC (Bld)0 %Normal0 [facility] Health SystemComment on above:Performed By: #### CDP, BMP #### [address] [address] Retail Support Specialist: Vijay Westfallmphocytes (Bld) [#/Vol]1.35 10*3/uLNormal 1.0-4.8Mem[facility] Health SystemComment on above:Performed By: #### CDP, BMP #### [facility] [address] [place] [address] Retail Support Specialist: Vijay Westfallmphocytes/100 WBC (Bld)9 %Uza54-86XjtatMemorial Health SystemComment on above:Performed By: #### CDP, BMP #### [facility] [address] [place] [address] Retail Support Specialist: BRITTANY Westfallonocytes (Bld) [#/Vol]1.80 10*3/uLHigh0.1-0.8 [facility] Health SystemComment on above:Performed By: #### CDP, BMP #### [facility] [address] [place] [address] Retail Support Specialist: BRITTANY Westfallonocytes/100 WBC (Bld)12 %High1-7Mem[facility] Health SystemComment on above:Performed By: #### CDP, BMP #### [facility] [address] [place] [address] Retail Support Specialist: BRITTANY Westfallorphology Callum (Bld) [Interp]NormalNormalMerBakersfield Memorial HospitalComment on above:Performed By: #### CDP, BMP #### [facility] [address] [place] [address] Retail Support Specialist: Afshin Mansfield MDNeutrophil (Seg)79 %Hxeb30-71XmevqMemorial Health SystemComment on above:Performed By: #### CDP, BMP #### [address] [address] Retail Support Specialist: Afshin Mansfield MDErythrocyte distribution width (RBC) [Ratio]13.8 %Baphuj48.8-14.4Memorial Health SystemComment on above:Performed By: #### CDP, BMP #### [facility] [address] [place] [address] Retail Support Specialist: Afshin Mansfield MDHematocrit (Bld) [Volume fraction]45.2 %Normal 40.7-50.3[facility]ripps Memorial HospitalComment on above:Performed By: #### CDP, BMP #### [facility] [address] [place] [address] Retail Support Specialist: Afshin Mansfield MDHemoglobin (Bld) [Mass/Vol]15.6 g/dLNormal 13.0-17.0Mem[facility] Health SystemComment on above:Performed By: #### CDP, BMP #### [facility] [address] [place] [address] Retail Support Specialist: BRITTANY WestfallCH (RBC) [Entitic mass]30.5 gbKwgggp59.2-33.5 [facility] Health SystemComment on above:Performed By: #### CDP, BMP #### [address] [address] Retail Support Specialist: BRITTANY WestfallCHC (RBC) [Mass/Vol]34.5 g/wTVkujfb98.4-34.8 [facility] Health SystemComment on above:Performed By: #### BEBO, BMP #### [address] [address] Retail Support Specialist: BRITTANY WestfallCV (RBC) [Entitic vol]88.5 dBZbqnzp79.6-102.9 [facility] Health SystemComment on above:Performed By: #### BEBO, BMP #### [place] [address] Retail Support Specialist: VONDA WestfallBC Automated0.0 per 100 WBCNormal0.0Mem[facility] Health SystemComment on above:Performed By: #### BEBO, BMP #### [address] [address] Retail Support Specialist: Ban Westfallteflor mean volume (Bld) [Entitic vol]9.6 fL Normal8.1-13.5Memorial Health SystemComment on above:Performed By: #### CDP, BMP #### [address] [address] Retail Support Specialist: JOJO Westfalllatelets (Bld) [#/Vol]235 10*3/bWIemmjf771-850 [facility] Health SystemComment on above:Performed By: #### BEBO, BMP #### [address] [address] Retail Support Specialist: KEIKO WestfallBC (Bld) [#/Vol]5.11 10*6/uLNormal4.21-5.77 [facility] Health SystemComment on above:Performed By: #### CDP, BMP #### [facility] [address] [place] [address] Retail Support Specialist: Afshin Mansfield MDDOCTORS [facility] ([facility]) [#/Vol]15.0 10*3/uLHigh3.5-11.3Mharrison community hospitaly [facility]ripp[facility] Memorial HospitalComment on above:Performed By: #### CDP, BMP #### [facility] [address] [place] [address] Retail Support Specialist: REYNA Westfall Complete 2D W Doppler W Coloron 12-01-2021 Transthoracic Echocardiography Report (TTE) Patient Name EDGAR Date of Study 11/30/2021 SHAHRZAD Date of 1945 Gender Male Age 76 year(s) Race Room Number 0122 Height: 73 inch, 185.42 cm Corporate ID [id number] Weight: 207 pounds, 93.9 kg # Patient Acct [id number] BSA: 2.18 m^2 BMI: 27.31 # kg/m^2 MR # [id number] Global President Rosmery Walsh Interpreting Physician Vicki Rob Fellow Referring Nurse Practitioner Interpreting Referring Physician Yolie Cabrera Fellow Type of Study TTE procedure:2D Echocardiogram, M-Mode, Doppler, Color Doppler, Bubble Study. Procedure Date Date: 11/30/2021 Start: 02:35 PM Study Location: [facility] Technical Quality: Adequate visualization Indications:Stroke. [...] Lateral Wall E' velocity:0.12 m/s Lateral Wall E/E':7.5MHPN STV Vicki Meyer MD - 12/01/2021 Transthoracic Echocardiography Report (TTE) Patient Name TALA Date of Study 11/30/2021 SHAHRZAD Date of 1945 Gender Male Age 76 year(s) Race Room Number 0122 Height: 73 inch, 185.42 cm Corporate ID [id number] Weight: 207 pounds, 93.9 kg # Patient Acct [id number] BSA: 2.18 m^2 BMI: 27.31 # kg/m^2 MR # [id number] Global President Rosmery Walsh Interpreting Physician Vicki Rob Fellow Referring Nurse Practitioner Interpreting Referring Physician Yolie Cabrera Type of Study TTE procedure:2D Echocardiogram, M-Mode, Doppler, Color Doppler, Bubble Study. Procedure Date Date: 11/30/2021 Start: 02:35 PM Study Location: [facility] Technical Quality: Adequate visualization Indications:Stroke. [...] E' velocity:0.12 m/s Lateral Wall E/E':7.5 [facility] Work Phone: [facility] Work Phone: poc Glucose Fingerstickon [id number] [Mass/Vol] 132 mg/lOIore49 - 110 mg/dLBON [facility]CTORS HOSPITALInterpretation and review of laboratory resultsAbnoDouglas County Memorial Hospital Glucose [Mass/Vol]129 mg/qXWyqh15 - 110 mg/dLBON [facility] Interpretation and review of laboratory resultsAbnormBon Secours St. Francis Medical CenterGlucose [Mass/Vol]369 mg/xAOrzc16 - 110 mg/dLBON [facility]ORS HOSPITALInterpretation and review of laboratory resultsAbnormalCARILION FRANKLIN MEMORIAL HOSPITALGlucose [Mass/Vol]196 mg/yTCicl35 - 110 mg/dLBON [facility]CTORS HOSPITALInterpretation and review of laboratory results AbnormalCARILION FRANKLIN MEMORIAL HOSPITALGlucose [Mass/Vol]181 mg/fSPdvh38 - 110 mg/dLBON [facility]CTORS HOSPITALInterpretation and review of laboratory resultsAbnormVCU Health Community Memorial Hospital Urinalysis w/ Microon 11-20-6830Vbqlwjtrn, SemiQt,UrNegativeNormalNEGMercy Scripps Memorial HospitalComment on above:Performed By: #### UAMIC #### [facility] [place] [address] Retail Support Specialist: Lia Westfall, UrineLARGEAbnormalNEGMemorial Health SystemComment on above:Performed By: #### UAMIC #### [address] [address] Retail Support Specialist: WOODROW Westfallasts2 TO 5 HYALINENormal0-8Memorial Health SystemComment on above:Result Comment: Reference range defined for non- centrifuged specimen.Performed By: #### UAMIC #### [address] [address] Retail Support Specialist: WOODROW Westfalllarity (U)ClearNormalCLEARMerBakersfield Memorial HospitalComment on above:Performed By: #### UAMIC #### [address] [address] Retail Support Specialist: WOODROW Westfallolor (U)YellowNormalYELMerBakersfield Memorial HospitalComment on above:Performed By: #### UAMIC #### [address] [address] Retail Support Specialist: Afshin Mansfield MDEpithelial cells LM Ql (Urine sed)0 TO 2Normal 0-5Mem[facility] Health SystemComment on above:Performed By: #### UAMIC #### [address] [address] Retail Support Specialist: Afshin Mansfield MDGlucose Ql (U)NegativeNormalNEGMemorial Health SystemComment on above:Performed By: #### UAMIC #### [address] [address] Retail Support Specialist: Afshin Mansfield MDKetones Ql (U)TRACEAbnormalNEGMemorial Health SystemComment on above:Performed By: #### UAMIC #### [address] [address] Retail Support Specialist: Afshin Mansfield MDLeukocyte esterase Test strip Ql (U)Negative NormalNEGMemorial Health SystemComment on above:Performed By: #### UAMIC #### [address] [address] Retail Support Specialist: Rashard Westfalltrite,UrNegativeNormalNEGMemorial Health SystemComment on above:Performed By: #### UAMIC #### [address] [address] Retail Support Specialist: JOJO Westfall,Ur5.9Kolkyn2.0-8.0Mem[facility] Health SystemComment on above:Performed By: #### UAMIC #### [address] [address] Retail Support Specialist: JOJO Westfallrotein Ql (U)TRACEAbnormwvNEGMemorial Health SystemComment on above:Performed By: #### UAMIC #### [address] [address] Retail Support Specialist: KRISTIAN Westfallpec. [place],Ur1.476Ilvr0.005-1.030Memorial Health SystemComment on above:Performed By: #### UAMIC #### [address] [address] Retail Support Specialist: Logan Westfall RBC's20 TO 58Eojxzd9-4NkkbtMemorial Health SystemComment on above:Result Comment: Reference range defined for non- centrifuged specimen.Performed By: #### UAMIC #### [address] [address] Retail Support Specialist: Logan Westfall WBC's2 TO 4Kmwotg1-7LwyqdMemorial Health SystemComment on above:Performed By: #### UAMIC #### [address] [address] Retail Support Specialist: Chase Westfallbilinogen,UrNormalNormalNORMMemorial Health SystemComment on above:Performed By: #### UAMIC #### [facility] [address] [place] [address] Retail Support Specialist: Afshin Mansfield MDUrinalysis with Microscopicon 12-01-2021 Bilirubin UrineNegativeNEGATIVEBON SECOURS Deetectee MicrosystemsY HEALTHCasts UA2 TO 5 HYALINE Reference range defined for non-centrifuged specimen.[facility]wa[facility] HEALTH Color, UAYellowYellowBON SECOURS MERCY HEALTHEpithelial Cells UA0 TO 2[facility] Deetectee MicrosystemsY HEALTHGlucose, UrNegativeNEGATIVEBON SEC[facility]ALTH[facility]AREY HEALTH Interpretation and review of laboratory resultsAbnormalBON SECOURS UK HEALTHCAREMeditope Biosciences HEALTH Ketones Ql (U)TRACEAbnormalNEGATIVEBON SECOU[facility] EnerneticsLeukocyte esterase Test strip Ql (U)NegativeNEGATIVEBON SECOURS Deetectee MicrosystemsY HEALTHNitrite, UrineNegative NEGATIVEB[facility]RS Qwaq HEALTHpH, UA5.55 - 8[facility] Qwaq HEALTHProtein, UATRACEAbnormalNEGATIVEBON [facility]RS UK HEALTHCAREMeditope Biosciences HEALTHRBC, UA20 TO 50B[facility] Qwaq HEALTHComment on above:Reference range defined for non-centrifuged specimen. Specific [place], UA1.166Rbqg8.005 - 1.03[facility] Deetectee MicrosystemsY HEALTHTurbidity UA ClearClearB[facility]RS Qwaq HEALTHUrine HgbLARGEAbnormalNEGATIVEB[facility] EnerneticsUrobilinogen, UrineNormalNormalB[facility] Qwaq HEALTHWBC, UA2 TO 5 [facility] Qwaq HEALTHBON SECOURS UK HEALTHCAREMeditope Biosciences HEALTHBasic Metabolic Panelon [id number] gap [Moles/Vol]11 mmol/L9 - 17 mmol/LBON SECOURS Qwaq HEALTH Calcium [Mass/Vol]7.7 mg/dLLow8.6 - 10.4 mg/dLB[facility]RS MERCY HEALTHChloride [Moles/Vol]102 mmol/L98 - 107 mmol/LBON SECOURS Deetectee MicrosystemsY HEALTHCO2 [Moles/Vol]21 mmol/L20 - 31 mmol/LBON [facility]RS MERCY HEALTHCreatinine [Mass/Vol]0.79 mg/dL0.7 - 1.2 mg/dLBON SEC[facility] Deetectee MicrosystemsY HEALTHGFR >6060 - PINF mL/minB[facility] SEC[facility]RS Qwaq HEALTHGFR Non->6060 - PINF mL/minCARILION CLINICGFR/1.73 sq M.predicted MDRD (S/P/Bld) [Vol rate/Area][facility] CLINICComment on above:Average GFR for 70 or more years old: 75 mL/min/1.73sq m Chronic Kidney Disease: <60 mL/min/1.73sq m Kidney failure: <15 mL/min/1.73sq m eGFR calculated using average adult body mass. Additional eGFR calculator available at: http://www.[employer]/Synthego_crcl_2012.htm Glucose [Mass/Vol]196 mg/lXMrqe42 - 99 mg/dLBON [facility] Interpretation and review of laboratory resultsAbnormalCARILION CLINIC Potassium [Moles/Vol]4.5 mmol/L3.7 - 5.3 mmol/LBON [facility] DOCTORS HOSPITALSodium [Moles/Vol]134 mmol/RJhq742 - 144 mmol/LBON [facility] DOCTORS HOSPITALUrea nitrogen (BldV) [Mass/Vol]17 mg/dL8 - 23 mg/dLBON BLACK HILLS SURGERY CENTERBasic Metabolic Profon 92-82-8180Gymrlit [Mass/Vol]196 mg/aHXugi16-78Gsvih [facility] Memorial HospitalComment on above:Performed By: #### DAVEY VEE, BMP #### [facility] [address] [place] [phone] Retail Support Specialist: Afshin Mansfield MD(cont.)[facility] Comment on above:Result Comment: Average GFR for 70 or more years old: 75 mL/min/1.73sq m Chronic Kidney Disease: <60 mL/min/1.73sq m Kidney failure: <15 mL/min/1.73sq m eGFR calculated using average adult body mass. Additional eGFR calculator available at: http://www.[employer]/Synthego_crcl_2011.htmPerformed By: #### MARIUSZ GLYHGB, BMP #### [facility] [address] [place] [phone] Retail Support Specialist: Afshin Mansfield MDAnion gap [Moles/Vol]11 mmol/LNormal9-17Mem[facility] Health SystemComment on above:Performed By: #### CBC, GLYHGB, BMP #### [facility] [address] [place] [address] Retail Support Specialist: Afshin Mansfield MDCalcium [Mass/Vol]7.7 mg/dLLow8.6-10.4[facility] Health SystemComment on above:Performed By: #### CBC, GLYHGB, BMP #### [facility] [address] [place] [address] Retail Support Specialist: Afshin Mansfield MDChloride [Moles/Vol]102 mmol/LDzhcwj45-523BwxyoMemorial Health SystemComment on above:Performed By: #### CBC, GLYHGB, BMP #### [facility] [address] [place] [address] Retail Support Specialist: Afshin Mansfield MDCO2 [Moles/Vol]21 mmol/KLwnsji07-44ScyclMemorial Health SystemComment on above:Performed By: #### CBC, GLYHGB, BMP #### [facility] [address] [place] [address] Retail Support Specialist: Afshin Mansfield MDCreatinine [Mass/Vol]0.79 mg/dLNormal0.70-1.20 [facility] SystemComment on above:Performed By: #### CBC, GLYHGB, BMP #### [facility] [address] [place] [address] Retail Support Specialist: MELVIN Westfall, Amer>60Normal>60MerBakersfield Memorial HospitalComment on above:Performed By: #### CBC, GLYHGB, BMP #### [facility] [address] [place] [address] Retail Support Specialist: Afshin Madoff, MDGFR,non Amer>60Normal>60[facility] Health SystemComment on above:Performed By: #### CBC, GLYHGB, BMP #### [facility] [address] [place] [address] Retail Support Specialist: JOJO Westfallotassium [Moles/Vol]4.5 mmol/LNormal3.7-5.3 [facility] SystemComment on above:Performed By: #### CBC, GLYHGB, BMP #### [facility] [address] [place] [address] Retail Support Specialist: Afshin Mansfield MDSodium [Moles/Vol]134 mmol/QPsz984-616FtffbMemorial Health SystemComment on above:Performed By: #### CBC, GLYHGB, BMP #### [facility] [address] [place] [address] Retail Support Specialist: Kati Westfall nitrogen [Mass/Vol]17 mg/dLNormal8-23Mem[facility] Health SystemComment on above:Performed By: #### CBC, GLYHGB, BMP #### [facility] [address] [place] [address] Retail Support Specialist: Afshin Mansfield [facility] with Auto Differentialon [id number] Eos #[facility] HEALTHAbsolute Immature Granulocyte0.12[facility] HEALTHAbsolute Lymph #1.09LowBON SECOURS MERCY HEALTHAbsolute [place] #1.40HighBON SECOURS MERCY HEALTHBasophils AbsoluteB[facility]RS MERCY HEALTHBasophils/100 WBC (Bld)0 %0 - 2 %[facility]CY HEALTHEosinophils/100 WBC (Bld)0 %Low1 - 4 %[facility] HEALTHHematocrit (Bld) [Volume fraction]41.7 %40.7 - 50.3 %[facility] HEALTHHemoglobin (Bld) [Mass/Vol]13.9 g/dL13 - 17 g/dLBON SECOURS MERCY HEALTHImmature granulocytes/100 WBC (Bld)1 %Mcht4JEC [facility] Interpretation and review of laboratory resultsAbnormalBON [facility] Lymphocytes/100 WBC (Bld)8 %Low24 - 43 %[facility] CENTERH (RBC) [Entitic mass]29.6 pg25.2 - 33.5 pgBON ADENA HEALTH SYSTEMHC (RBC) [Mass/Vol] 33.3 g/dL28.4 - 34.8 g/dLBON ADENA HEALTH SYSTEMV (RBC) [Entitic vol]88.7 fL 82.6 - 102.9 fLBON [facility] DOCTORS HOSPITALMonocytes/100 WBC (Bld)10 %3 - 12 %[facility] CLINICNRBC Automated0.00.0 per 100 WBCCARILION CLINIC Platelet distribution width (Bld) [Ratio]14.0 %11.8 - 14.4 %[facility] CLINICPlatelet mean volume (Bld) [Entitic vol]10.2 fL8.1 - 13.5 fLCARILION CLINICPlatelets (Bld) [#/Vol]230 10*3/uLBON [facility] DOCTORS HOSPITALRBC (Bld) [#/Vol]4.70 10*6/uL4.21 - 5.77 m/uLCARILION CLINICSegmented neutrophils/100 WBC (Bld)81 %High36 - 65 %[facility] CLINICSegs Absolute 11.07HighBON [facility]ALTH DOCTORS HOSPITALWBC (Bld) [#/Vol]13.7 10*3/uLHighBON BLACK HILLS SURGERY CENTERCBC with Diffon [id number]. Basophil<0.03 Normal0.00-0.20[facility] Health SystemComment on above:Performed By: #### CBC, GLYHGB, BMP #### [facility] [address] [place], [place] [phone] Retail Support Specialist: Virgil Westfall. Eosinophil<0.43Wghfvb2.00-0.44[facility] Health SystemComment on above:Performed By: #### CBC, GLYHGB, BMP #### [facility] [place] [address] Retail Support Specialist: MDAbs. MalouImm.Granulocyte0.12 k/uLNormal0.00-0.30[facility] Health SystemComment on above:Performed By: #### MARIUSZ, GLYHGB, BMP #### [facility] [address] [place] [address] Retail Support Specialist: Virgil Westfall.Neutrophil (Seg)11.07 k/uLHigh1.50-8.10[facility] Health SystemComment on above:Performed By: #### MARIUSZ, GLYHGB, BMP #### [facility] [address] [place] [address] Retail Support Specialist: Afshin Mansfield MDBasophils/100 WBC (Bld)0 %Normal0-2MHoag Memorial Hospital PresbyterianComment on above:Performed By: #### MARIUSZ, GLYHGB, BMP #### [facility] [address] [place] [address] Retail Support Specialist: Afshin Mansfield MDEosinophils/100 WBC (Bld)0 %Low1-4[facility] Health SystemComment on above:Performed By: #### MARIUSZ GLYHGB, BMP #### [facility] [address] [place] [address] Retail Support Specialist: Afshin Mansfield MDErythrocyte distribution width (RBC) [Ratio]14.0 %Egyneq06.8-14.4Mem[facility] Health SystemComment on above:Performed By: #### MARIUSZ, GLYHGB, BMP #### [facility] [address] [place] [address] Retail Support Specialist: Afshin Mansfield MDHematocrit (Bld) [Volume fraction]41.7 %Normal 40.7-50.3MercEden Medical CenterComment on above:Performed By: #### CBC, GLYHGB, BMP #### [facility] [address] [place] [address] Retail Support Specialist: Afshin Mansfield MDHemoglobin (Bld) [Mass/Vol]13.9 g/dLNormal 13.0-17.0[facility] Health SystemComment on above:Performed By: #### CBC, GLYHGB, BMP #### [facility] [address] [place] [address] Retail Support Specialist: Afshin Mansfield MDImmature granulocytes/100 WBC (Bld)1 %Frob5EzydtMemorial Health SystemComment on above:Performed By: #### CBC, GLYHGB, BMP #### [facility] [address] [place] [address] Retail Support Specialist: Afshin Mansfield MDLymphocytes (Bld) [#/Vol]1.09 10*3/uLLow 1.10-3.70Mem[facility] Health SystemComment on above:Performed By: #### CBC, GLYHGB, BMP #### [facility] [address] [place] [address] Retail Support Specialist: Vijay Westfallmphocytes/100 WBC (Bld)8 %Kbr33-08YgmfjMemorial Health SystemComment on above:Performed By: #### CBC, GLYHGB, BMP #### [facility] [address] [place] [address] Retail Support Specialist: BRITTANY WestfallCH (RBC) [Entitic mass]29.6 juKstnmf00.2-33.5 [facility] SystemComment on above:Performed By: #### CBC, GLYHGB, BMP #### [facility] [address] [place] [address] Retail Support Specialist: BRITTANY WestfallCHC (RBC) [Mass/Vol]33.3 g/lUSausjy76.4-34.8 [facility] SystemComment on above:Performed By: #### CBC, GLYHGB, BMP #### [address] [address] Retail Support Specialist: BRITTANY WestfallCV (RBC) [Entitic vol]88.7 yFMhnpns43.6-102.9 [facility] SystemComment on above:Performed By: #### CBC, GLYHGB, BMP #### [place] [address] Retail Support Specialist: BRITTANY Westfallonocytes (Bld) [#/Vol]1.40 10*3/uLHigh0.10-1.20 [facility] Health SystemComment on above:Performed By: #### CBC, GLYHGB, BMP #### [place] [address] Retail Support Specialist: BRITTANY Westfallonocytes/100 WBC (Bld)10 %Normal3-12Memorial Health SystemComment on above:Performed By: #### CBC, GLYHGB, BMP #### [place] [address] Retail Support Specialist: Pravin Westfallophil (Seg)81 %Xlyb09-52HgzlbMemorial Health SystemComment on above:Performed By: #### CBC, GLYHGB, BMP #### [place] [address] Retail Support Specialist: Afshin Mansfield MDNRBC Automated0.0 per 100 WBCNormal0.0Memorial Health SystemComment on above:Performed By: #### CBC, GLYHGB, BMP #### [place] [address] Retail Support Specialist: JOJO Westfalllatelet mean volume (Bld) [Entitic vol]10.2 fL Normal8.1-13.5Memorial Health SystemComment on above:Performed By: #### CBC, GLYHGB, BMP #### [facility] [address] [place] [address] Retail Support Specialist: Chilango Westfall ([facility]) [#/Vol]230 10*3/oFRzxnvp188-519 [facility] SystemComment on above:Performed By: #### CBC, GLYHGB, BMP #### [facility] [address] [place] [address] Retail Support Specialist: CONOR Westfall ([facility]) [#/Vol]4.70 10*6/uLNormal4.21-5.77 [facility] Health SystemComment on above:Performed By: #### CBC, GLYHGB, BMP #### [facility] [address] [place] [address] Retail Support Specialist: XANDER Westfall ([facility]) [#/Vol]13.7 10*3/uLHigh3.5-11.3Mharrison community hospitaly [facility] Memorial HospitalComment on above:Performed By: #### CBC, GLYHGB, BMP #### [facility] [address] [place] [address] Retail Support Specialist: EDWIGE Westfall 12 LeadOrdered By: Vicki Rob on 57-16-9325Kbcrje Jrax39KRSURG [employer] Work Phone: P Kybu96evbaeggJBJIntepat [employer] Services Work Phone: P-R Grdooxav663 msBON [employer] Work Phone: [phone] Nfaurfbo554 msBON [employer] Work Phone: QRS Qbjmcfbq10 msBON [employer]CCart[employer] Work Phone: QTc Calculation (Bazett)480 msBON [employer] Work Phone: R Pebl49unwlhmiGBO [employer] Work Phone: T [id number] SECCartago Software Work Phone: Ventricular [id number] [facility] [employer] Work Phone: BON [facility] [employer] Work Phone: EKG 12 Leadon 75-97-4031Yifrhv sinus rhythm Low voltage QRS Inferior infarct , age undetermined Abnormal ECG No previous ECGs availableLIFECARE HOSPITAL OF MECHANICSBURGVicki Lange MD - 11/30/2021 Normal sinus rhythm Low voltage QRS Inferior infarct , age undetermined Abnormal ECG No previous ECGs available [facility] HOSPITALCartago Software Work Phone: pOC Glucose Fingerstickon 93-01-0461Pyihrmf [Mass/Vol] 160 mg/pFEatt78 - 110 mg/dLBON NORTHWEST MEDICAL CENTERGoo Technologies UK HEALTHCAREYouOSInterpretation and review of laboratory resultsAbnormVCU Health Community Memorial Hospital Glucose [Mass/Vol]181 mg/wJPzgh25 - 110 mg/dLBON [facility] Interpretation and review of laboratory resultsAbnormHealthSouth Medical Center BON [facility] [employer] KiptronicGlucose [Mass/Vol]182 mg/wNHdkl88 - 110 mg/dLBON NORTHWEST MEDICAL CENTERGoo Technologies UK HEALTHCAREYouOSInterpretation and review of laboratory resultsAbnoRiverside Doctors' Hospital WilliamsburgMeditope Biosciences [facility] MEDICAL CENTERBasic Metabolic Panelon 16-22-3042Yaygc gap [Moles/Vol]12 mmol/L9 - 17 mmol/LBON NORTHWEST MEDICAL CENTERGoo Technologies UK HEALTHCAREYouOSCalcium [Mass/Vol]8.3 mg/dLLow8.6 - 10.4 mg/dLBON NORTHWEST MEDICAL CENTERGoo Technologies UK HEALTHCAREYouOSChloride [Moles/Vol]101 mmol/L98 - 107 mmol/LBON NORTHWEST MEDICAL CENTERGoo Technologies UK HEALTHCAREYouOSCO2 [Moles/Vol]20 mmol/L20 - 31 mmol/LBON NORTHWEST MEDICAL CENTERCartago SoftwareCreatinine [Mass/Vol]0.89 mg/dL0.7 - 1.2 mg/dLBON NORTHWEST MEDICAL CENTERGoo Technologies UK HEALTHCAREYouOSGFR >6060 - PINF mL/minSAINT JOSEPH'S HOSPITALGoo Technologies [facility] HOSPITALGFR Non->6060 - PINF mL/minBON OH[facility]HEALTH DOCTORS HOSPITALGFR/1.73 sq M.predicted MDRD (S/P/Bld) [Vol rate/Area][facility] CLINICComment on above:Average GFR for 70 or more years old: 75 mL/min/1.73sq m Chronic Kidney Disease: <60 mL/min/1.73sq m Kidney failure: <15 mL/min/1.73sq m eGFR calculated using average adult body mass. Additional eGFR calculator available at: http://www.[employer] Combine/multiple_crcl_2012.htm Glucose [Mass/Vol]198 mg/uPVcsv39 - 99 mg/dLBON [facility] Interpretation and review of laboratory resultsAbnormalCARILION CLINIC Potassium [Moles/Vol]4.4 mmol/L3.7 - 5.3 mmol/LBON [facility] DOCTORS HOSPITALSodium [Moles/Vol]133 mmol/LNxv954 - 144 mmol/LBON [facility] DOCTORS HOSPITALUrea nitrogen (BldV) [Mass/Vol]14 mg/dL8 - 23 mg/dLBON BLACK HILLS SURGERY CENTERBasic Metabolic Profon 11-29-2021(cont.)NormalMemorial Health SystemComment on above:Result Comment: Average GFR for 70 or more years old: 75 mL/min/1.73sq m Chronic Kidney Disease: <60 mL/min/1.73sq m Kidney failure: <15 mL/min/1.73sq m eGFR calculated using average adult body mass. Additional eGFR calculator available at: http://www.[employer] Combine/Synthego_crcl_2011.htmPerformed By: #### DALE MALDONADO, CDP #### [facility] [address] [place] [address] Retail Support Specialist: Byron Westfall gap [Moles/Vol]12 mmol/LNormal9-17Mem[facility] Health SystemComment on above:Performed By: #### DALE MALDONADO, CDP #### [facility] [address] [place] [address] Retail Support Specialist: Afshin Madoff, MDCalcium [Mass/Vol]8.3 mg/dLLow8.6-10.4Mem[facility] Health SystemComment on above:Performed By: #### DALE MALDONADO, CDP #### [facility] [address] [place] [address] Retail Support Specialist: WOODROW Westfallhloride [Moles/Vol]101 mmol/BTxqjdq61-089ZxwhvMemorial Health SystemComment on above:Performed By: #### DALE MALDONADO, CDP #### [facility] [address] [place] [address] Retail Support Specialist: Afshin Mansfield MDCO2 [Moles/Vol]20 mmol/RMajqxe62-32TshbiMemorial Health SystemComment on above:Performed By: #### DALE MALDONADO, CDP #### [facility] [place] [address] Retail Support Specialist: WOODROW Westfallreatinine [Mass/Vol]0.89 mg/dLNormal0.70-1.20 [facility] SystemComment on above:Performed By: #### DALE MALDONADO, CDP #### [facility] [place] [address] Retail Support Specialist: Afshin Mansfield MDGFR, Amer>60Normal>60Memorial Health SystemComment on above:Performed By: #### DALE MALDONADO, CDP #### [facility] [address] [place] [address] Retail Support Specialist: Afshin Mansfield MDGFR,non Amer>60Normal>60[facility] Health SystemComment on above:Performed By: #### DALE MALDONADO, CDP #### [facility] [place] [address] Retail Support Specialist: Afshin Mansfield MDGlucose [Mass/Vol]198 mg/oHDvsx06-56PdacsHoag Memorial Hospital PresbyterianComment on above:Performed By: #### DALE MALDONADO, CDP #### [facility] [address] [place] [address] Retail Support Specialist: JOJO Westfallotassium [Moles/Vol]4.4 mmol/LNormal3.7-5.3 [facility] Health SystemComment on above:Performed By: #### DALE MALDONADO, CDP #### [facility] [address] [place] [address] Retail Support Specialist: KRISTIAN Westfallodium [Moles/Vol]133 mmol/PGxt221-751SajgtMemorial Health SystemComment on above:Performed By: #### DALE MALDONADO, CDP #### [facility] [address] [place] [address] Retail Support Specialist: Afshin Mansfield MDUrea nitrogen [Mass/Vol]14 mg/dLNormal8-23Mem[facility] Health SystemComment on above:Performed By: #### DALE MALDONADO, CDP #### [facility] [address] [place] [address] Retail Support Specialist: Afshin Mansfield [facility] with Auto Differentialon 60-28-5346Tepbktsh Eos #0.00B[facility]CY HEALTHAbsolute Immature Granulocyte0.19[facility] HEALTHAbsolute Lymph #0.57LowBON SECOURS MERCY HEALTHAbsolute [place] #1.33 HighBON SECOURS MERCY HEALTHBasophils (Bld) [#/Vol]0.00 10*3/uLBON SECOURS MERCY HEALTHBasophils/100 WBC (Bld)0 %0 - 2 %[facility] HEALTHEosinophils/100 WBC (Bld)0 %Low1 - 4 %[facility]CY HEALTHHematocrit (Bld) [Volume fraction] 40.4 %Low40.7 - 50.3 %[facility]CY HEALTHHemoglobin (Bld) [Mass/Vol]13.6 g/dL13 - 17 g/dLBON SECOURS MERCY HEALTHImmature granulocytes/100 WBC (Bld)1 % Dsfr9LPJ [facility]ORS HOSPITALInterpretation and review of laboratory results AbnormalBON OHIOHEALTH DOCTORS HOSPITALLymphocytes/100 WBC (Bld)3 %Low24 - 43 %BON [facility] HEALTH SYSTEMH (RBC) [Entitic mass]30.5 pg25.2 - 33.5 pgBON ADENA HEALTH SYSTEMHC (RBC) [Mass/Vol]33.7 g/dL28.4 - 34.8 g/dLBON SECOHIOHEALTH SHELBY HOSPITALV (RBC) [Entitic vol]90.6 fL82.6 - 102.9 fLCARILION CLINIC Monocytes/100 WBC (Bld)7 %3 - 12 %BON [facility] DOCTORS HOSPITALMorphology Callum (Bld) [Interp]NormalCARILION CLINICNRBC Automated0.00.0 per 100 WBCBON [facility]ALTH DOCTORS HOSPITALPlatelet distribution width (Bld) [Ratio]13.7 %11.8 - 14.4 % BON [facility] DOCTORS HOSPITALPlatelet mean volume (Bld) [Entitic vol]9.9 fL8.1 - 13.5 fLCARILION CLINICPlatelets (Bld) [#/Vol]250 10*3/uLCARILION CLINICRBC (Bld) [#/Vol]4.46 10*6/uL4.21 - 5.77 m/uLCARILION CLINIC Segmented neutrophils/100 WBC (Bld)89 %High36 - 65 %BON [facility] DOCTORS HOSPITALSegs Xbhrsjna52.91HighCARILION CLINICWBC (Bld) [#/Vol]19.0 10*3/uLHighCARILION CLINICBON [facility]CTORS HOSPITALCBC with Diffon 20-81-7155Akm. Basophil0.00 k/uLNormal0.00-0.20[facility] Health SystemComment on above:Performed By: #### DALE MALDONADO, CDP #### [facility] [address] [place] [address] Retail Support Specialist: Virgil Westfall.Imm.Granulocyte0.19 k/uLNormal0.00-0.30[facility] Health SystemComment on above:Performed By: #### DALE MALDONADO, CDP #### [facility] [address] [place] [address] Retail Support Specialist: Virigl Westfall.Neutrophil (Seg)16.91 k/uLHigh1.50-8.10[facility] Health SystemComment on above:Performed By: #### DALE MALDONADO, CDP #### [facility] [address] [place] [address] Retail Support Specialist: Afshin Mansfield MDBasophils/100 WBC (Bld)0 %Normal0-2MercEden Medical CenterComment on above:Performed By: #### DALE MALDONADO, CDP #### [facility] [address] [place] [address] Retail Support Specialist: Afshin Mansfield MDEosinophils (Bld) [#/Vol]0.00 10*3/uLNormal 0.00-0.44[facility] Health SystemComment on above:Performed By: #### DALE MALDONADO, CDP #### [facility] [address] [place] [address] Retail Support Specialist: Afshin Mansfield MDEosinophils/100 WBC (Bld)0 %Low1-4[facility] Health SystemComment on above:Performed By: #### DALE MALDONADO, CDP #### [facility] [address] [place] [address] Retail Support Specialist: Afshin Mansfield MDImmature granulocytes/100 WBC (Bld)1 %Rrwi6FnifvMemorial Health SystemComment on above:Performed By: #### DALE MALDONADO, CDP #### [facility] [address] [place] [address] Retail Support Specialist: Afshin Mansfield MDLymphocytes (Bld) [#/Vol]0.57 10*3/uLLow 1.10-3.70[facility] Health SystemComment on above:Performed By: #### DALE MALDONADO, CDP #### [facility] [address] [place] [address] Retail Support Specialist: Afshin Mansfield MDLymphocytes/100 WBC (Bld)3 %Xif85-26NohgqMemorial Health SystemComment on above:Performed By: #### ADLE MALDONADO, CDP #### [facility] [address] [place] [address] Retail Support Specialist: Afshin Mansfield MDMonocytes (Bld) [#/Vol]1.33 10*3/uLHigh0.10-1.20 [facility] SystemComment on above:Performed By: #### DALE MALDONADO, CDP #### [facility] [place] [address] Retail Support Specialist: BRITTANY Westfallonocytes/100 WBC (Bld)7 %Normal3-12[facility] Health SystemComment on above:Performed By: #### DALE MALDONADO, CDP #### [facility] [place] [address] Retail Support Specialist: BRITTANY Westfallorphology Callum (Bld) [Interp]NormalNormalMemorial Health SystemComment on above:Performed By: #### DALE MALDONADO, CDP #### [facility] [place] [address] Retail Support Specialist: Afshin Mansfield MDNeutrophil (Seg)89 %Knzl10-62UnbjiMemorial Health SystemComment on above:Performed By: #### DALE MALDONADO, CDP #### [facility] [address] [place] [address] Retail Support Specialist: Afshin Mansfield MDErythrocyte distribution width (RBC) [Ratio]13.7 %Kqwguc64.8-14.4Mem[facility] Health SystemComment on above:Performed By: #### DALE MALDONADO, CDP #### [facility] [address] [place] [address] Retail Support Specialist: Afshin Mansfield MDHematocrit (Bld) [Volume fraction]40.4 %Low 40.7-50.3[facility]ripps Memorial HospitalComment on above:Performed By: #### DALE MALDONADO, CDP #### [address] [address] Retail Support Specialist: Afshin Mansfield MDHemoglobin (Bld) [Mass/Vol]13.6 g/dLNormal 13.0-17.0Mem[facility] Health SystemComment on above:Performed By: #### DALE MALDONADO, CDP #### [address] [address] Retail Support Specialist: BRITTANY WestfallCH (RBC) [Entitic mass]30.5 sqYlhqxm29.2-33.5 [facility] SystemComment on above:Performed By: #### DALE MALDONADO, CDP #### [address] [address] Retail Support Specialist: BRITTANY WestfallCHC (RBC) [Mass/Vol]33.7 g/uXQvqjsi31.4-34.8 [facility] SystemComment on above:Performed By: #### DALE MALDONADO, CDP #### [address] [address] Retail Support Specialist: BRITTANY WestfallCV (RBC) [Entitic vol]90.6 gJEtwelf62.6-102.9 [facility] SystemComment on above:Performed By: #### DALE MALDONADO, CDP #### [facility] [place] [address] Retail Support Specialist: Afshin Mansfield MDNRBC Automated0.0 per 100 WBCNormal0.0[facility] Health SystemComment on above:Performed By: #### DALE MALDONADO, CDP #### [facility] [place] [address] Retail Support Specialist: Courtney Westfall mean volume (Bld) [Entitic vol]9.9 fL Normal8.1-13.5Mem[facility] Health SystemComment on above:Performed By: #### DALE MALDONADO, CDP #### [facility] [place] [address] Retail Support Specialist: Ban Westfalltemelissa (Bld) [#/Vol]250 10*3/dKMquive467-970 [facility] SystemComment on above:Performed By: #### DALE MALDONADO, CDP #### [facility] [place] [address] Retail Support Specialist: KEIKO WestfallBC (Bld) [#/Vol]4.46 10*6/uLNormal4.21-5.77 [facility] SystemComment on above:Performed By: #### DALE MALDONADO, CDP #### [facility] [place] [address] Retail Support Specialist: XANDER Westfall (Bld) [#/Vol]19.0 10*3/uLHigh3.5-11.3MHoag Memorial Hospital PresbyterianComment on above:Performed By: #### DALE MALDONADO, CDP #### [facility] [place] [address] Retail Support Specialist: Afshin Mansfield MDCT HEAD WO CONTRASTon 26-29-1737SP HEAD WO CONTRASTEXAMINATION: CT OF THE HEAD WITHOUT CONTRAST 11/29/2021 [...] Signed by: Anders Shepard MD 11/29/21 Final resultNormalMerJohn Douglas French Centerimilar 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 Similar punctate focus of presumed hemorrhage. [facility] CONSOLIDATEDEXAMINATION: CT OF THE HEAD WITHOUT CONTRAST 11/29/2021 [...] of the visualized skull or soft tissues. [facility] Anders Dunlap MD - 11/29/2021 EXAMINATION: CT OF THE [...] shift. Similar punctate focus of presumed hemorrhage. [facility] [employer] Work Phone: bON [facility] [employer] Work Phone: radiology Study observation (narrative)[facility] [employer] Work Phone: calcium, [employer] 84-15-3732Vxcslgd [Moles/Vol]1.07 mmol/LLow1.13-1.33[facility]ripp[facility] Memorial HospitalComment on above:Performed By: #### JOEL, BMP, CDP #### [facility] [address] [place] [address] Retail Support Specialist: WOODROW Westfallalcium, Ionizedon 67-00-4841Kfbxlus, Ionized 1.07 mmol/LLow1.13 - 1.33 mmol/LBON [facility]ORS HOSPITALInterpretation and review of laboratory resultsAbnormalBON BLACK HILLS SURGERY CENTERMagnesiumon 98-56-7172Mjdxthfqx [Mass/Vol]2.6 mg/dLNormal1.6-2.6[facility] Memorial HospitalComment on above:Performed By: #### IOCAL, BMP, CDP #### [facility] [address] [place] [address] Retail Support Specialist: Gucci Westfallgnesium [Mass/Vol]2.6 mg/dL1.6 - 2.6 mg/dLBON [facility] Glucose Fingerstickon 11-29-2021 Glucose [Mass/Vol]199 mg/vGVubc50 - 110 mg/dLBON [facility] Interpretation and review of laboratory resultsAbnormalINOVA HEALTH SYSTEMGlucose [Mass/Vol]211 mg/dNOdyj65 - 110 mg/dLBON [facility]CTORS HOSPITALInterpretation and review of laboratory resultsAbnormalCARILION FRANKLIN MEMORIAL HOSPITALGlucose [Mass/Vol]213 mg/nFHkrk72 - 110 mg/dLBON [facility]CTORS HOSPITALInterpretation and review of laboratory results AbnormalBON BLACK HILLS SURGERY CENTERGlucose [Mass/Vol]195 mg/oJUyhd65 - 110 mg/dLBON [facility]CTORS HOSPITALInterpretation and review of laboratory resultsAbnormalCARILION FRANKLIN MEMORIAL [facility]PITAL Glucose [Mass/Vol]205 mg/gCXdrr11 - 110 mg/dLBON [facility] Interpretation and review of laboratory resultsAbnormBon Secours St. Francis Medical CenterBasic Metabolic Profon 11-28-2021(cont.)[facility]ar[facility] HospitalComment on above:Result Comment: Average GFR for 70 or more years old: 75 mL/min/1.73sq m Chronic Kidney Disease: <60 mL/min/1.73sq m Kidney failure: <15 mL/min/1.73sq m eGFR calculated using average adult body mass. Additional eGFR calculator available at: http://www.[employer]/multiple_crcl_2012.htmPerformed By: #### CBC, GLYHGB, BMP #### [facility] [address] [place], [place] [id number] Retail Support Specialist: Afshin Madoff, MDAnion gap [Moles/Vol]15 mmol/LNormal9-17[facility] Health SystemComment on above:Performed By: #### CBC, GLYHGB, BMP #### [facility] [address] [place] [address] Retail Support Specialist: Afshin Mansfield MDCalcium [Mass/Vol]8.1 mg/dLLow8.6-10.4Mem[facility] Health SystemComment on above:Performed By: #### CBC, GLYHGB, BMP #### [facility] [address] [place] [address] Retail Support Specialist: Afshin Mansfield MDChloride [Moles/Vol]95 mmol/RMcp91-812KghudMemorial Health SystemComment on above:Performed By: #### CBC, GLYHGB, BMP #### [facility] [address] [place] [address] Retail Support Specialist: Afshin Mansfield MDCO2 [Moles/Vol]21 mmol/LJwsmsd41-33OkahmMemorial Health SystemComment on above:Performed By: #### CBC, GLYHGB, BMP #### [facility] [address] [place] [address] Retail Support Specialist: Afshin Mansfield MDCreatinine [Mass/Vol]0.94 mg/dLNormal0.70-1.20 [facility] SystemComment on above:Performed By: #### CBC, GLYHGB, BMP #### [facility] [address] [place] [address] Retail Support Specialist: MELVIN Westfall, Amer>60Normal>60Mem[facility] Health SystemComment on above:Performed By: #### CBC, GLYHGB, BMP #### [facility] [address] [place] [address] Retail Support Specialist: MELVIN Westfall,non Amer>60Normal>60[facility] Health SystemComment on above:Performed By: #### CBC, GLYHGB, BMP #### [facility] [address] [place] [address] Retail Support Specialist: Afshin Mansfield MDGlucose [Mass/Vol]230 mg/hJNxgc59-75CzyhlHoag Memorial Hospital PresbyterianComment on above:Performed By: #### CBC, GLYHGB, BMP #### [facility] [address] [place] [address] Retail Support Specialist: JOJO Westfallotassium [Moles/Vol]4.2 mmol/LNormal3.7-5.3 [facility] SystemComment on above:Performed By: #### MARIUSZ, GLYHGB, BMP #### [facility] [address] [place] [address] Retail Support Specialist: KRISTIAN Westfallodium [Moles/Vol]131 mmol/RBif074-334RghbzMemorial Health SystemComment on above:Performed By: #### MARIUSZ, GLYHGB, BMP #### [facility] [address] [place] [address] Retail Support Specialist: Afshin Mansfield MDUrea nitrogen [Mass/Vol]10 mg/dLNormal8-23Mem[facility] Health SystemComment on above:Performed By: #### MARIUSZ, GLYHGB, BMP #### [facility] [address] [place] [address] Retail Support Specialist: Afshin Mansfield MDBasic metabolic panelon 29-65-0183Nlvle gap [Moles/Vol]15 mmol/L9 - 17 mmol/LBON SECOURS MERCY HEALTHCalcium [Mass/Vol]8.1 mg/dLLow8.6 - 10.4 mg/dLBON [facility] MERCY HEALTHChloride [Moles/Vol]95 mmol/LLow 98 - 107 mmol/LBON SECOURS MERCY HEALTHCO2 [Moles/Vol]21 mmol/L20 - 31 mmol/LBON [facility]OURS MERCY HEALTHCreatinine [Mass/Vol]0.94 mg/dL0.7 - 1.2 mg/dLBON [facility]CTORS HOSPITALGFR >6060 - PINF mL/minBON [facility]CTORS HOSPITALGFR Non->6060 - PINF mL/minCARILION CLINICGFR/1.73 sq M.predicted MDRD (S/P/Bld) [Vol rate/Area]MIRA [facility] HOSPITALComment on above:Average GFR for 70 or more years old: 75 mL/min/1.73sq m Chronic Kidney Disease: <60 mL/min/1.73sq m Kidney failure: <15 mL/min/1.73sq m eGFR calculated using average adult body mass. Additional eGFR calculator available at: http://www.[employer] Combine/multiple_crcl_2011.htm Glucose [Mass/Vol]230 mg/nVFsoy77 - 99 mg/dLBON [facility] Interpretation and review of laboratory resultsAbnoValley Health Potassium [Moles/Vol]4.2 mmol/L3.7 - 5.3 mmol/LBON [facility]ALTH DOCTORS HOSPITALSodium [Moles/Vol]131 mmol/DFkb608 - 144 mmol/LBON [facility] DOCTORS HOSPITALUrea nitrogen (BldV) [Mass/Vol]10 mg/dL8 - 23 mg/dLBON BLACK HILLS SURGERY CENTERC-Reactive Proteinon 41-36-2088XDE [Mass/Vol]13.7 mg/LHigh0.0-5.0[facility] Health SystemComment on above:Performed By: #### JOEL, BMP, CDP #### [facility] [address] [place] [address] Retail Support Specialist: WOODROW WestfallRP [Mass/Vol]13.7 mg/LHigh0 - 5 mg/LBON [facility]CTORS HOSPITALInterpretation and review of laboratory resultsAbnormalCARILION FRANKLIN MEMORIAL HOSPITALCBCon 72-54-3352Oioiiejbnmy distribution width (RBC) [Ratio]13.6 %Yhibpb94.8-14.4[facility] Health SystemComment on above:Performed By: #### CBC, GLYHGB, BMP #### [address] [address] Retail Support Specialist: Afshin Mansfield MDHematocrit (Bld) [Volume fraction]40.1 %Low 40.7-50.3MHoag Memorial Hospital PresbyterianComment on above:Performed By: #### CBC, GLYHGB, BMP #### [address] [address] Retail Support Specialist: Afshin Mansfield MDHemoglobin (Bld) [Mass/Vol]13.9 g/dLNormal 13.0-17.0Mem[facility] Health SystemComment on above:Performed By: #### CBC, GLYHGB, BMP #### [address] [address] Retail Support Specialist: BRITTANY WestfallCH (RBC) [Entitic mass]30.2 bjKfktnc31.2-33.5 [facility] SystemComment on above:Performed By: #### CBC, GLYHGB, BMP #### [address] [address] Retail Support Specialist: BRITTANY WestfallCHC (RBC) [Mass/Vol]34.7 g/gBJvmivq21.4-34.8 [facility] SystemComment on above:Performed By: #### CBC, GLYHGB, BMP #### [address] [address] Retail Support Specialist: BRITTANY WestfallCV (RBC) [Entitic vol]87.0 zLXdfkki60.6-102.9 [facility] SystemComment on above:Performed By: #### CBC, GLYHGB, BMP #### [address] [address] Retail Support Specialist: Afshin Mansfield MDNRBC Automated0.0 per 100 WBCNormal0.0Mem[facility] Health SystemComment on above:Performed By: #### CBC, GLYHGB, BMP #### [facility] [address] [place] [address] Retail Support Specialist: Courtney Westfall mean volume (Bld) [Entitic vol]10.1 fL Normal8.1-13.5Mem[facility] Health SystemComment on above:Performed By: #### CBC, GLYHGB, BMP #### [facility] [address] [place] [id number] Retail Support Specialist: Chilango Westfall (Bld) [#/Vol]222 10*3/dTLloqqc577-234 Memorial Health SystemComment on above:Performed By: #### CBC, GLYHGB, BMP #### [facility] [address] [place] [address] Retail Support Specialist: KEIKO WestfallBC (Bld) [#/Vol]4.61 10*6/uLNormal4.21-5.77 Memorial Health SystemComment on above:Performed By: #### MARIUSZ, GLYHGB, BMP #### [facility] [address] [place] [address] Retail Support Specialist: Afshin Mansfield MDWBC (Bld) [#/Vol]13.5 10*3/uLHigh3.5-11.3MHoag Memorial Hospital PresbyterianComment on above:Performed By: #### CBC, GLYHGB, BMP #### [facility] [place] [address] Retail Support Specialist: Afshin Mansfield MDHematocrit (Bld) [Volume fraction]40.1 %Low40.7 - 50.3 %CARILION CLINICHemoglobin (Bld) [Mass/Vol]13.9 g/dL13 - 17 g/dL [facility] CLINICInterpretation and review of laboratory resultsAbnormal [facility]ALTHMCH (RBC) [Entitic mass]30.2 pg25.2 - 33.5 pgBON ADENA HEALTH SYSTEMHC (RBC) [Mass/Vol]34.7 g/dL28.4 - 34.8 g/dLBON ADENA HEALTH SYSTEMV (RBC) [Entitic vol]87.0 fL82.6 - 102.9 fLCARILION CLINICNRBC Automated0.00.0 per 100 WBCBON OHIOHEALTH DOCTORS HOSPITALPlatelet distribution width (Bld) [Ratio]13.6 %11.8 - 14.4 %BON [facility]CTORS HOSPITALPlatelet mean volume (Bld) [Entitic vol]10.1 fL8.1 - 13.5 fLSOVAH HEALTH - DANVILLE HEALTHPlatelets (Bld) [#/Vol]222 10*3/uLCARILION CLINICRBC (Bld) [#/Vol]4.61 10*6/uL4.21 - 5.77 m/uLCARILION CLINICWBC (Bld) [#/Vol]13.5 10*3/uLHighBON BLACK HILLS SURGERY CENTERCBC AUTO DIFFon [id number] #0.0 103/ul Normal0.0-0.1The [facility] HospitalComment on above:Performed By: #### HSTROPN, CMP, CRP #### [facility] [address] [address] [address] Sea PughBasophils/100 WBC (Bld)0.3 %Normal0.2-2.0The [facility] Comment on above:Performed By: #### HSTROPN, CMP, CRP #### [facility] [address] [address] [address] Sea Torre #0.1 103/ulNormal0.0-0.7The [facility] HospitalComment on above: Performed By: #### HSTROPN, CMP, CRP #### [facility] [address] [address] [address] Sea Fordosinophils/100 WBC (Bld)0.8 %Critically low0.9-7.0The [facility] HospitalComment on above:Performed By: #### HSTROPN, CMP, CRP #### [facility] [address] [address] [address] Sea Fordrythrocyte distribution width (RBC) [Ratio]13.6 %Atctrb61.0-15.0 The [facility] HospitalComment on above:Performed By: #### HSTROPN, CMP, CRP #### [facility] [address] [place] [address] Dr. Sea PughHematocrit (Bld) [Volume fraction]41.0 %Critically low42.0-54.0 The [facility] HospitalComment on above:Performed By: #### HSTROPN, CMP, CRP #### [facility] [address] [place] [address] Dr. Sea PughHemoglobin (Bld) [Mass/Vol]14.0 g/fCHkjtbv66.0-18.0The [facility] Hospitalment on above:Performed By: #### HSTROPN, CMP, CRP #### [facility] [address] [place] [address] Dr. Sea Anguiano #0.04 10e3/ulCritically high0.00-0.03The [facility] Comment on above:Performed By: #### HSTROPN, CMP, CRP #### [facility] [address] [place] [address] Dr. Sea Anguiano %0.3 %Normal0.0-0.5The [facility]ome[facility] Memorial Hospitalment on above: Performed By: #### HSTROPN, CMP, CRP #### [facility] [address] [place] [address] Dr. Sea NovaMPH #1.2 103/ulNormal1.2-3.8The [facility] HospitalComment on above:Performed By: #### HSTROPN, CMP, CRP #### [facility] [address] [place] [address] Dr. Sae Nvoamphocytes/100 WBC (Bld)9.7 %Critically low20.5-60.0The López HospitalComment on above:Performed By: #### HSTROPN, CMP, CRP #### [facility] [address] [address] [address] Sea Merino DIFF REQNONormalThe [facility] HospitalComment on above: Performed By: #### HSTROPN, CMP, CRP #### [facility] [address] [address] [address] Sea Steele (RBC) [Entitic mass]29.9 mnOgzurn39.9-34.0The [facility] HospitalComment on above:Performed By: #### HSTROPN, CMP, CRP #### [facility] [address] [address] [address] Sea Steele (RBC) [Mass/Vol]34.1 g/nIJygecy85.9-35.2The [facility] HospitalComment on above:Performed By: #### HSTROPN, CMP, CRP #### [facility] [address] [address] [address] Sea Izaguirre (RBC) [Entitic vol]87.6 zMQurkqp88.0-94.0The [facility] Hospitalment on above:Performed By: #### HSTROPN, CMP, CRP #### [facility] [address] [address] [address] Sea Rain #0.9 103/ulCritically high0.3-0.8ThTriHealth Good Samaritan [facility] Comment on above:Performed By: #### HSTROPN, CMP, CRP #### [facility] [address] [place] [address] Dr. Sea Bansalocytes/100 WBC (Bld)7.4 %Normal1.7-12.0[facility] Comment on above:Performed By: #### HSTROPN, CMP, CRP #### [facility] [address] [place] [address] Dr. eSa Zapata #10.3 103/ulCritically high1.4-6.5The [facility] Comment on above:Performed By: #### HSTROPN, CMP, CRP #### [facility] [address] [place] [address] Dr. Sea Díazutrophils/100 WBC (Bld)81.5 %Critically high43.0-75.0The [facility] HospitalComment on above:Performed By: #### HSTROPN, CMP, CRP #### [facility] [address] [place] [address] Dr. Sea Santacruzlet mean volume (Bld) [Entitic vol]9.8 fLNormal9.5-13.5The [facility] HospitalComment on above:Performed By: #### HSTROPN, CMP, CRP #### [facility] [address] [place] [address] Dr. Sea PughPLT247 103/wbBjhazp261-674Zhb [facility] HospitalComment on above: Performed By: #### HSTROPN, CMP, CRP #### [facility] [address] [place] [address] Dr. Sea PughRBC4.68 106/ulCritically low4.70-6.10The [facility] HospitalComment on above:Performed By: #### HSTROPN, CMP, CRP #### [facility] [address] [place] [address] Dr. Sea PughWBC12.6 103/ulCritically high4.0-11.0The [facility] HospitalComment on above:Performed By: #### HSTROPN, CMP, CRP #### [facility] [address] [place] [address] Dr. Sea Robbins 93-38-2563LTQ6.3 mg/dLNormal<=1.0The [facility] Comment on above:Performed By: #### HSTROPN, CMP, CRP #### [facility] [address] [place] [address] Dr. Sea PughCT HEAD WO CONon [id number] HEAD WO CONEXAMINATION: CT HEAD WO CON HISTORY: HEADACHE COMPARISON: [...] Electronically authenticated by: VICENTA MARCH Date: 2021-11-28 00:11[facility] HEAD WO CONTRASTon [id number] HEAD WO CONTRASTEXAMINATION: CT OF THE HEAD WITHOUT CONTRAST; CTA [...] Signed by: Adalberto Escobar MD 11/28/21 Final resultNormalMemorial Health SystemRadiology Study observation (narrative)MIRA AMEZCUA [facility] [employer] Work Phone: cta HEAD NECK W CONTRASTon [id number] HEAD NECK W CONTRASTEXAMINATION: CT OF THE HEAD WITHOUT CONTRAST; CTA [...] Signed by: Adalberto Escobar MD 11/28/21 Final resultNormalMemorial Health SystemCTA head neck with contraston [id number] Study observation (narrative)[facility] [employer] Work Phone: Hemoglobin A1Con 84-23-0592Lrpsyjv [Mass/Vol]186 mg/dL NormalMemorial Health SystemComment on above:Result Comment: The ADA and AACC recommend providing the estimated average glucose result to permit better patient understanding of their HBA1c result.Performed By: #### CBC, GLYHGB, BMP #### [facility] [address] [place] [address] Retail Support Specialist: Asfhin Mansfield MDHbA1c (Bld) [Mass fraction]8.1 %High4.0-6.0Memorial Health SystemComment on above:Performed By: #### CBC, GLYHGB, BMP #### [facility] [address] [place] [address] Retail Support Specialist: Afshin Mansfield MDHemoglobin A1con 27-85-3786Eipbvxr [Mass/Vol]186 mg/dLBON [employer] [facility] MEDICAL CENTERComment on above:The ADA and AACC recommend providing the estimated average glucose result to permit better patient understanding of their HBA1c result. HbA1c (Bld) [Mass fraction]8.1 %High4 - 6 %[facility] JO[facility]S HOSPITALCartago Software Interpretation and review of laboratory resultsAbnormBon Secours St. Francis Medical CenterLACTATE/LACTIC ACIDon 76-53-0064Dwekzcf [Moles/Vol]1.7 mmol/LNormal0.4-1.9The [facility] HospitalComment on above:Performed By: #### DDIM #### [facility] [address] [address] [address] Sea PughLipid Panelon 70-49-9276Wpztajkjjuo [Mass/Vol]122 mg/dLNINF - 200 mg/dLBON NORTHWEST MEDICAL CENTERAmerican BioCare [facility] BEACHWOOD MEDICAL CENTERComment on above: Cholesterol Guidelines: <200 Desirable 200-240 Borderline >240 Undesirable Cholesterol in HDL [Mass/Vol]34 mg/dLLow40 - PINF mg/dLBON [employer] Comment on above: HDL Guidelines: <40 Undesirable 40-59 Borderline >59 Desirable Cholesterol in LDL [Mass/Vol]74 mg/dL0 - 130 mg/dLBON NORTHWEST MEDICAL CENTERCartago Software Comment on above: LDL Guidelines: <100 Desirable 100-129 Near to/above Desirable 130-159 Borderline >159 Undesirable Direct (measured) LDL and calculated LDL are not interchangeable tests. Cholesterol.total/Cholesterol in HDL [Mass ratio]3.6 {ratio}NINF - 5BON [facility] CENTERYouOSInterpretation and review of laboratory resultsAbnormRiverside Tappahannock HospitalYouOSTriglyceride [Mass/Vol]71 mg/dLNINF - 150 mg/dLBON NORTHWEST MEDICAL CENTERAmerican BioCare [facility] BEACHWOOD MEDICAL CENTERComment on above: Triglyceride Guidelines: <150 Desirable 150-199 Borderline 200-499 High >499 Very high Based on AHA Guidelines for fasting triglyceride, December 2011. MarketArtLipid Profileon 23-40-9669Goyirmvgyab [Mass/Vol]122 mg/dLNormal<200Mer[facility]ripp[facility] Memorial HospitalComment on above:Result Comment: Cholesterol Guidelines: <200 Desirable 200-240 Borderline >240 UndesirablePerformed By: #### DALE MALDONADO, CDP #### [facility] [address] [place] [phone] Retail Support Specialist: WOODROW Westfallholesterol in HDL [Mass/Vol]34 mg/dLLow>40Mer[facility]ripp[facility] Memorial HospitalComment on above:Result Comment: HDL Guidelines: <40 Undesirable 40-59 Borderline >59 DesirablePerformed By: #### DALE MALDOANDO, CDP #### [facility] [address] [place] [address] Retail Support Specialist: WOODROW Westfallholesterol in LDL [Mass/Vol]74 mg/dLNormal0-130 Memorial Health SystemComment on above:Result Comment: LDL Guidelines: <100 Desirable 100-129 Near to/above Desirable 130-159 Borderline >159 Undesirable Direct (measured) LDL and calculated LDL are not interchangeable tests.Performed By: #### DALE MALDONADO, CDP #### [facility] [address] [place] [address] Retail Support Specialist: Kali Westfall.total/Cholesterol in HDL [Mass ratio]3.6 {ratio}Normal<5Mer[facility]ripp[facility] Memorial HospitalComment on above: Performed By: #### DALE MALDONADO, CDP #### [facility] [address] [place] [phone] Retail Support Specialist: Afshin Mansfield MDTriglyceride [Mass/Vol]71 mg/dLNormal<150MerBakersfield Memorial HospitalComment on above:Result Comment: Triglyceride Guidelines: <150 Desirable 150-199 Borderline 200-499 High >499 Very high Based on AHA Guidelines for fasting triglyceride, December 2011.Performed By: #### DALE MALDONADO, CDP #### [facility] [address] [place] [address] Retail Support Specialist: LATRICIA Westfall WO CONTRASTon [id number] BRAIN W WO CONTRASTEXAMINATION: MRI OF THE BRAIN WITHOUT AND WITH CONTRAST 11/28/2021 8:52 am TECHNIQUE: Multiplanar multisequence MRI of the head/brain was performed without and with the administration of intravenous contrast. COMPARISON: CT brain performed 11/28/2021. HISTORY: ORDERING SYSTEM PROVIDED HISTORY: questionable brain mass, bleeding TECHNOLOGIST PROVIDED HISTORY: questionable brain mass, bleeding What is the sedation requirement?->None Reason for Exam: questionable brain mass, bleeding FINDINGS: INTRACRANIAL STRUCTURES/VENTRICLES: The sellar and suprasellar structures, optic chiasm, [...] Signed by: Anders Shepard MD 11/28/21 Final resultNormalMercy Little Company of Mary Hospitalubacute ischemia involving the right parietal/temporal lobe with associated hemorrhagic/hemosiderin staining. There is mild associated edema, mass effect, and minimal leftward midline shift. PN RIS CONSOLIDATEDEXAMINATION: MRI OF THE BRAIN WITHOUT AND WITH CONTRAST 11/28/2021 8:52 am TECHNIQUE: Multiplanar multisequence MRI of the head/brain was performed without and with the administration of intravenous contrast. COMPARISON: CT brain performed 11/28/2021. HISTORY: ORDERING SYSTEM PROVIDED HISTORY: questionable brain mass, bleeding TECHNOLOGIST PROVIDED HISTORY: questionable brain mass, bleeding What is the sedation requirement?->None Reason for Exam: questionable brain mass, bleeding FINDINGS: INTRACRANIAL STRUCTURES/VENTRICLES: The sellar and suprasellar structures, optic chiasm, [...] The soft tissues demonstrate no acute abnormality. Anders Steve MD - 11/28/2021 EXAMINATION: MRI OF THE [...] Exam: questionable brain mass, bleeding FINDINGS: INTRACRANIAL STRUCTURES/VENTRICLES: The sellar and suprasellar structures, optic chiasm, [...] mass effect, and minimal leftward midline shift. [employer] Work Phone: radiology Study observation (narrative)[employer] Phone: MRI BRAIN W WO CONTRASTOrdered By: Anders Shepard on [id number] [employer] Work Phone: Magnesiumon 56-74-7481Szucavqph [Mass/Vol]1.5 mg/dLLow 1.6-2.6Mer[facility]ripp[facility] Memorial HospitalComment on above:Performed By: #### JOEL, BMP, CDP #### [facility] [place] [address] Retail Support Specialist: Afshin Mansfield MDInterpretation and review of laboratory results AbnormalBON Th[employer] Profile TechnologiesMagnesium [Mass/Vol]1.5 mg/dLLow1.6 - 2.6 mg/dL [facility] Thin Profile TechnologiesCOPPER SPRINGS HOSPITAL Thin Profile TechnologiesNo Panel Informationon . Findings appear most consistent with subacute (1-2 [...] to Dr. Velázquez on 11/28/2021 at 06:40. [facility] RIS CONSOLIDATEDEXAMINATION: CT OF THE HEAD WITHOUT CONTRAST; CTA [...] venous sinus thrombosis on this non-dedicated study. [facility] Adalberto Green MD - 11/28/2021 EXAMINATION: CT OF THE [...] to Dr. Velázquez on 11/28/2021 at 06:40. [facility] [employer] Work Phone: No Panel InformationOrdered By: Adalberto Escobar on [id number] [facility] Work Phone: POC Glucose Fingerstickon 16-00-3837Ajzchom [Mass/Vol] 223 mg/oDEpkc64 - 110 mg/dLBON [facility]CTORS HOSPITALInterpretation and review of laboratory resultsAbnormVCU Health Community Memorial Hospital Glucose [Mass/Vol]242 mg/zKBysj52 - 110 mg/dLBON [facility] Interpretation and review of laboratory resultsAbnormBon Secours St. Francis Medical CenterGlucose [Mass/Vol]262 mg/dJBsqq25 - 110 mg/dLBON [facility]CTORS HOSPITALInterpretation and review of laboratory resultsAbnormalCARILION FRANKLIN MEMORIAL HOSPITALGlucose [Mass/Vol]317 mg/bGFnil09 - 110 mg/dLBON [facility]CTORS HOSPITALInterpretation and review of laboratory results AbnormalBON BLACK HILLS SURGERY CENTERPROF 14(COMP METB)on 73-92-4432Qxxdasp [Mass/Vol]3.7 g/dLNormal3.4-5.0The [facility] HospitalComment on above:Performed By: #### HSTROPN, CMP, CRP #### [facility] [address] [place] [address] Dr. Sea PughAlbumin/Globulin [Mass ratio]0.9 {ratio}NormalThe [facility] HospitalComment on above:Performed By: #### HSTROPN, CMP, CRP #### [facility] [address] [address] [address] Sea OrourkeP [Catalytic activity/Vol]150 U/LCritically yhze47-577Itj [facility] HospitalComment on above:Performed By: #### HSTROPN, CMP, CRP #### [facility] [address] [address] [address] Sea OrourkeT [Catalytic activity/Vol]23 U/OClxeti85-58Hor [facility] HospitalComment on above:Performed By: #### HSTROPN, CMP, CRP #### [facility] [address] [place] [address] Dr. Sea PughAnion gap [Moles/Vol]9.8 mmol/LNormalThe [facility] HospitalComment on above:Performed By: #### HSTROPN, CMP, CRP #### [facility] [address] [place] [address] Dr. Sea PughAST [Catalytic activity/Vol]20 U/FOujprc37-83Vnp [facility] HospitalComment on above:Performed By: #### HSTROPN, CMP, CRP #### [facility] [address] [place] [address] Dr. Sea PughBilirubin [Mass/Vol]1.2 mg/dLCritically high0.2-1.0The [facility] HospitalComment on above:Performed By: #### HSTROPN, CMP, CRP #### [facility] [address] [place] [address] Dr. Sea PughCalcium [Mass/Vol]8.5 mg/dLNormal8.5-10.1The [facility] Comment on above:Performed By: #### HSTROPN, CMP, CRP #### [facility] [address] [place] [address] Dr. Sea PughChloride [Moles/Vol]100 mmol/DXflwov73-056Vbu [facility] Comment on above:Performed By: #### HSTROPN, CMP, CRP #### [facility] [address] [address] [address] Sea PughCO2 [Moles/Vol]26.8 mmol/AXlxjel26.0-32.0The [facility] Comment on above:Performed By: #### HSTROPN, CMP, CRP #### [facility] [address] [place] [address] Dr. Sea PughCreatinine [Mass/Vol]1.21 mg/dLNormal0.70-1.30Uk HealthcareComment on above:Performed By: #### HSTROPN, CMP, CRP #### [facility] [address] [place] [address] Dr. Osei ChangEGFR-AF SRI LANKAN>60Normal>=60The [facility] HospitalComment on above:Performed By: #### HSTROPN, CMP, CRP #### [facility] [address] [place] [address] Dr. Sea FordGFR-NON AF ZJZKSBJI27 mL/min/1.35i5Hzhakvwlby low>=60The [facility] HospitalComment on above:Performed By: #### HSTROPN, CMP, CRP #### [facility] [address] [place] [address] Dr. Sea PughGlobulin (S) [Mass/Vol]3.9 g/dLNormalThe [facility] HospitalComment on above:Performed By: #### HSTROPN, CMP, CRP #### [facility] [address] [place] [address] Dr. Sea PughGlucose [Mass/Vol]165 mg/dLCritically vkca86-689Zmj [facility] HospitalComment on above:Performed By: #### HSTROPN, CMP, CRP #### [facility] [address] [place] [address] Dr. Sea PughPotassium [Moles/Vol]3.6 mmol/LNormal3.5-5.1The [facility] Comment on above:Performed By: #### HSTROPN, CMP, CRP #### [facility] [address] [address] [address] Sea PughProtein [Mass/Vol]7.6 g/dLNormal6.4-8.2The [facility] Comment on above:Performed By: #### HSTROPN, CMP, CRP #### [facility] [address] [address] [address] Sea PughSodium [Moles/Vol]133 mmol/LCritically rbz529-883Wby [facility] HospitalComment on above:Performed By: #### HSTROPN, CMP, CRP #### [facility] [address] [address] [address] Sea PughUrea nitrogen [Mass/Vol]9.0 mg/dLNormal7.0-18.0The [facility] HospitalComment on above:Performed By: #### HSTROPN, CMP, CRP #### [facility] [address] [address] [address] Sea PughUrea nitrogen/Creatinine [Mass ratio]7.4 mg/mgNormalThe [facility] HospitalComment on above:Performed By: #### HSTROPN, CMP, CRP #### [facility] [address] [place] [address] Dr. Sea PughProcalcitoninon 48-03-3109Yzrmtdnhbmaqp0.10 ng/mLHigh<0.09Memorial Health SystemComment on above:Result Comment: Suspected Sepsis: <0.50 ng/mL Low likelihood [...] entered into the Change in Procalcitonin Calculator (www.fxspuj-nvv-wxhytmlbpk.com) to determine the patient's Mortality Risk Prognosis In healthy neonates, plasma Procalcitonin (PCT) concentrations increase gradually after , reaching peak values at about 24 hours of age then decrease to normal values below 0.5 ng/mL by 48-72 hours of age.Performed By: #### IOCAL, BMP, CDP #### [facility] [address] [id number] Retail Support Specialist: Afshin Mansfield MDInterpretation and review of laboratory results AbnormalCARILION CLINICProcalcitonin0.1 ng/mLHighNINF - 0.09 ng/mLCARILION CLINICComment on above: Suspected Sepsis: <0.50 ng/mL Low likelihood of sepsis. 0.50-2.00 ng/mL Increased likelihood of sepsis. Antibiotics encouraged. >2.00 ng/mL High risk of sepsis/shock. Antibiotics strongly encouraged. Suspected Lower Resp Tract Infections: <0.24 ng/mL Low likelihood of bacterial infection. >0.24 ng/mL Increased likelihood of bacterial infection. Antibiotics encouraged. With successful antibiotic therapy, PCT levels should decrease rapidly. (Half- life of 24 to 36 hours.) Procalcitonin values from samples collected within the first 6 hours of systemic infection may still be low. Retesting may be indicated. Values from day 1 and day 4 can be entered into the Change in Procalcitonin Calculator (www.sislff-abo-pchbolvudd.[employer]) to determine the patient's Mortality Risk Prognosis In healthy neonates, plasma Procalcitonin (PCT) concentrations increase gradually after , reaching peak values at about 24 hours of age then decrease to normal values below 0.5 ng/mL by 48-72 hours of age. CARILION CLINICSED RATE WESTERGRENon 26-80-7401DNB RATE42 mm/hr Critically high<=20The [facility] HospitalComment on above:Performed By: #### SEDR #### [facility] [address] [place], [place] [address] Dr. Sea Burnette, HIGH SENSITIVITYon 98-97-0997CCTPGN5.0 pg/mLNormal 4.0-76.1The López HospitalComment on above:Result Comment: CUT-OFF POINTS HAVE BEEN ESTABLISHED BASED ON THE FOURTH UNIVERSAL DEFINITIONS OF MYOCARDIAL INFARCTION. THE UPPER REFERENCE LIMIT (URL) OF TROPONIN, DEFINED THE 99TH PERCENTILE OF cTnI DISTRIBUTION IN A REFERENCE POPULATION, HAS BEEN CONFIRMED THE DECISION THRESHOLD FOR [place] DIAGNOSIS.Performed By: #### HSTROPN, CMP, CRP #### [facility] [address] [address] [address] Sea Cabrera Visit (Cardiology)on 62-60-1253Xffliw-up visit Diagnoses/Problems Assessed Persistent atrial fibrillation (427.31) [...] Metabolic Panel; Status:Active - Retrospective Authorization; Requested for:[id number]; Overweight with body mass index (BMI) of 28 to 28.9 in adult Healthy Weight Tips; Status:Complete - Retrospective Authorization; Done: [id number] Some eating tips that can help you lose weight.; Status:Complete - Retrospective Authorization; Done: [id number] Persistent atrial fibrillation IO EKG Electrocardiogram- 12 Lead; Status:Complete; Done: [id number] Single vessel coronary disease Renew: Aspirin EC 81 MG Oral Tablet Delayed Release; TAKE 1 TABLET DAILY Renew: Atorvastatin Calcium 80 MG Oral Tablet (Lipitor); TAKE 1 TABLET DAILY SocHx: Former smoker Tobacco Use Screening; Status:Complete; Done: [id number] Patient Instructions Please bring all medicines, vitamins, [...] besuboptimally controlled. Improved after I saw him Assessment [...] Eliquis was discontinuedrpreviously due to severe anemia 3. High-risk medication [...] but the patient elected todefer for now 2. He was counseled regarding [...] No illicit drug us (more content not included)...NormalUH TouchworksTobacco Screening.on 73-91-1578Ewke risk assessmenta) No falls within the last yearFormerly [facility] [employer]ger[employer] 250 DO Work Phone: Tobacco use status CPHSb) [facility]MDay[facility] Olista 250 DO Work Phone: BNPon 31-42-4856Kuecsujbrte peptide B (Bld) [Mass/Vol] 836.0 pg/mLNormal<=900.0The [facility] HospitalComment on above:Performed By: #### HSTROPN, CMP, BNP ####[facility] [address] [place], [place] [address]GjDr. Sea Rachel AUTO DIFFon 40-87-2113EXGP #0.1 103/ulNormal0.0-0.1The [facility] HospitalComment on above:Performed By: #### DDIM #### [facility] [address] [address] [address] Sea Cornejophils/100 WBC (Bld)0.5 %Normal0.2-2.0The [facility] Comment on above:Performed By: #### DDIM #### [facility] [address] [address] [address] Yilan ChangEO #0.3 103/ulNormal0.0-0.7The [facility] HospitalComment on above: Performed By: #### DDIM #### [facility] [address] [place] [address] Dr. Sea Fordosinophils/100 WBC (Bld)3.3 %Normal0.9-7.0[facility] Comment on above:Performed By: #### DDIM #### [facility] [address] [place] [address] Dr. Sea Fordrythrocyte distribution width (RBC) [Ratio]13.7 %Jqkucy27.0-15.0 [facility] HealthcareComment on above:Performed By: #### DDIM #### [facility] [address] [place] [address] Dr. Sea PughHematocrit (Bld) [Volume fraction]41.3 %Critically low42.0-54.0 [facility] HealthcareComment on above:Performed By: #### DDIM #### [facility] [address] [place] [address] Dr. Sea PughHemoglobin (Bld) [Mass/Vol]14.0 g/dHBeleej50.0-18.0The [facility] HospitalComment on above:Performed By: #### DDIM #### [facility] [address] [place] [address] Dr. Sea Anguiano #0.04 10e3/ulCritically high0.00-0.03The [facility] Comment on above:Performed By: #### DDIM #### [facility] [address] [place] [address] Dr. Sea Anguiano %0.4 %Normal0.0-0.5The [facility] HospitalComment on above: Performed By: #### DDIM #### [facility] [address] [place] [address] Dr. Sea PrinceH #1.3 103/ulNormal1.2-3.8The [facility] HospitalComment on above:Performed By: #### DDIM #### [facility] [address] [place] [address] Dr. Sea Novamphocytes/100 WBC (Bld)13.1 %Critically low20.5-60.0The [facility] HospitalComment on above:Performed By: #### DDIM #### [facility] [address] [place] [address] Dr. Sea SoniUAL DIFF REQNONormalThe [facility] HospitalComment on above: Performed By: #### DDIM #### [facility] [address] [place] [address] Dr. Sea Steele (RBC) [Entitic mass]30.2 rvUcxttr87.9-34.0The [facility] HospitalComment on above:Performed By: #### DDIM #### [facility] [address] [place] [address] Dr. Sea Steele (RBC) [Mass/Vol]33.9 g/jMZiyawv27.9-35.2The [facility] HospitalComment on above:Performed By: #### DDIM #### [facility] [address] [place] [address] Dr. Sea Steele (RBC) [Entitic vol]89.0 mVWugaui27.0-94.0The [facility] HospitalComment on above:Performed By: #### DDIM #### [facility] [address] [place] [address] Dr. Sea Rain #1.0 103/ulCritically high0.3-0.8ThTriHealth [facility] Comment on above:Performed By: #### DDIM #### [facility] [address] [place] [address] Dr. Sea Bansalocytes/100 WBC (Bld)9.8 %Normal1.7-12.0[facility] Comment on above:Performed By: #### DDIM #### [facility] [address] [place] [address] Dr. Sea Zapata #7.1 103/ulCritically high1.4-6.5The [facility] Comment on above:Performed By: #### DDIM #### [facility] [address] [place] [address] Dr. Sea PughNeutrophils/100 WBC (Bld)72.9 %Zybogz11.0-75.0The [facility] HospitalComment on above:Performed By: #### DDIM #### [facility] [address] [place] [address] Dr. Sea PughPlatelet mean volume (Bld) [Entitic vol]9.7 fLNormal9.5-13.5The [facility] HospitalComment on above:Performed By: #### DDIM #### [facility] [address] [place] [address] Dr. Sea PughPLT247 103/tjUuqrxx353-267Eer [facility] HospitalComment on above: Performed By: #### DDIM #### [facility] [address] [place] [address] Dr. Sea PughRBC4.64 106/ulCritically low4.70-6.10The [facility] HospitalComment on above:Performed By: #### DDIM #### [facility] [address] [place] [address] Dr. Sea PughWBC9.8 103/ulNormal4.0-11.0The [facility] HospitalComment on above: Performed By: #### DDIM #### [facility] [address] [place] [address] Dr. Sea Schultz CHEST WO W CONon [id number] CHEST WO W CONCTA CHEST WITH IV CONTRAST CTA CHEST WO [...] The subdiaphragmatic abdominal organs included in the rhmwg-gn-bzrb do not demonstrate any acute abnormality. IMPRESSION: 1. Normal-appearing thoracic aorta. 2. No CT evidence for acute pulmonary embolus. 3. Otherwise unremarkable CT scan of the chest for acute pathology. Electronically authenticated by: OBI MIDDLETON Date: 2021-09-22 19:33NoCommunity Regional Medical CenterCovid-19 PCR ([facility]WT[facility])on 50-67-4116INEF-CoV-2 (COVID-19) RNA PHOENIX+probe Ql (Unsp spec)Not detectedNormalNOT DETECTEDThe [facility] Comment on above:Result Comment: When diagnostic testing is negative, the [...] for this test is supported by the [place] of Health and Human Service's declaration that circumstances exist to justify the emergency use of in vitro diagnostics for the detection and/or diagnosis of the virus that causes COVID-19. This EUA will remain in effect for the duration of the COVID-19 declaration justifying emergency of IVDs, unless it is terminated or revoked by the FDA (after which the test may no longer be used).Performed By: #### HSTROPN, CMP, CRP #### [facility] [address] [address] [address] Sea Hodge 14(COMP METB)on 42-94-2280Gmqtbau [Mass/Vol]3.6 g/dLNormal 3.4-5.0The [facility] HospitalComment on above:Performed By: #### HSTROPN, CMP, BNP ####[facility] [address] [address]Dr. Sea PughAlbumin/Globulin [Mass ratio]0.9 {ratio}NormalUk [facility] Comment on above:Performed By: #### HSTROPN, CMP, BNP ####[facility] [address] [address]Dr. Sea ChangALP [Catalytic activity/Vol]143 U/LCritically bkiz54-803Ewx [facility] HospitalComment on above: Performed By: #### HSTROPN, CMP, BNP ####[facility] [address] [address]Dr. Sea ChangALT [Catalytic activity/Vol]28 U/L Cvfhmi82-40Lqr [facility] HospitalComment on above:Performed By: #### HSTROPN, CMP, BNP ####[facility] [address] [address]Dr. Sea ChangAnion gap [Moles/Vol]12.6 mmol/LNormalUk [facility] Comment on above:Performed By: #### HSTROPN, CMP, BNP ####[facility] [address] [address]Dr. Yilan ChangAST [Catalytic activity/Vol]18 U/SDaxhin94-05Yss [facility] HospitalComment on above:Performed By: #### HSTROPN, CMP, BNP ####[facility] [address] [address]Dr. Sea ChangBilirubin [Mass/Vol]1.1 mg/dLCritically high0.2-1.0The [facility] HospitalComment on above:Performed By: #### HSTROPN, CMP, BNP ####[facility] [address] [address]Dr. Yilan ChangCalcium [Mass/Vol]8.7 mg/dLNormal8.5-10.1The [facility] HospitalComment on above:Performed By: #### HSTROPN, CMP, BNP ####[facility] [address] [address]Dr. Yilan Pugh Chloride [Moles/Vol]100 mmol/TKwwfkf93-445Jxt [facility] HospitalComment on above: Performed By: #### HSTROPN, CMP, BNP ####[facility] [address] [address]Dr. Yilan ChangCO2 [Moles/Vol]27.1 mmol/LNormal 21.0-32.0The [facility] HospitalComment on above:Performed By: #### HSTROPN, CMP, BNP ####[facility] [address] [address]Dr. Yilan ChangCreatinine [Mass/Vol]1.15 mg/dLNormal0.70-1.30The [facility] Comment on above:Performed By: #### HSTROPN, CMP, BNP ####[facility] [address] [address]Dr. Yilan ChangEGFR-AF SRI LANKAN>60Normal>=60The [facility] HospitalComment on above:Performed By: #### HSTROPN, CMP, BNP ####[facility] [address] [address]Dr. Yilan ChangEGFR-NON AF SRI LANKAN>60Normal>=60The [facility] Comment on above:Performed By: #### HSTROPN, CMP, BNP ####[facility] [address] [address]Dr. Yilan ChangGlobulin (S) [Mass/Vol]3.9 g/dLNormalThe [facility] HospitalComment on above:Performed By: #### LILIANTROPN, CMP, BNP ####[facility] [address] [address]Dr. Yilan ChangGlucose [Mass/Vol]214 mg/dLCritically lbfv59-705Obx [facility] HospitalComment on above:Performed By: #### HSTROPN, CMP, BNP ####[facility] [address] [address]Dr. Yilan ChangPotassium [Moles/Vol]3.7 mmol/LNormal3.5-5.1The [facility] Comment on above:Performed By: #### LILIANTROPN CMP, BNP ####[facility] [address] [address]Dr. Yilan ChangProtein [Mass/Vol]7.5 g/dLNormal6.4-8.2The [facility] HospitalComment on above:Performed By: #### LILIANTROPN, CMP, BNP ####[facility] [address] [place], [place] [address]Dr. Yilan ChangSodium [Moles/Vol]136 mmol/LNormal 136-145The [facility] HospitalCommymichigan medical center west branch on above:Performed By: #### LILIANTROPN, CMP, BNP ####[facility] [address] [address]Dr. Yilan ChangUrea nitrogen [Mass/Vol]13.0 mg/dLNormal7.0-18.0The [facility] Comment on above:Performed By: #### HSTROPN, CMP, BNP ####[facility] [address] [address]Dr. Yilan ChangUrea nitrogen/Creatinine [Mass ratio]11.3 mg/mgNoCommunity Regional Medical CenterCommymichigan medical center west branch on above:Performed By: #### HSTROPN, CMP, BNP ####[facility] [address] [place], [place] [address]Dr. Yilan ChangPROTIMEon 88-76-3716VKF Coag (PPP) [Relative time]1.07 {INR}NormalThe López HospitalComment on above: Performed By: #### PT, PTT ####[facility] [address] [address]Dr. Sea PughINR GUIDELINESSEE BELOWNoCommunity Regional Medical CenterComment on above:Result Comment: DESIRED INR: 2.0 - 3.0 CONDITIONS NOT LISTED BELOW 2.5 - 3.5 FOR PROSTHETIC HEART VALVE REPLACEMENT 2.5 - 3.5 RECURRENT THROMBOSISPerformed By: #### PT, PTT ####[facility] [address] [address]Dr. Sea KeatonPT Coag (PPP) [Time]11.5 sNormal9.0-11.6The [facility] on above:Performed By: #### PT, PTT ####[facility] [address] [address]Dr. Sea PughPTTon 57-87-8572xYJL Coag (Bld) [Time]30.2 wJusyiz12.3-36.2 The [facility] HospitalCommymichigan medical center west branch on above:Performed By: #### PT, PTT ####[facility] [address] [address]Dr. Sea Pugh TROPONIN, HIGH SENSITIVITYon 49-83-4524OWPTAT8.5 pg/mLNormal4.0-76.1The [facility] on above:Result Comment: CUT-OFF POINTS HAVE BEEN ESTABLISHED BASED ON THE FOURTH UNIVERSAL DEFINITIONS OF MYOCARDIAL INFARCTION. THE UPPER REFERENCE LIMIT (URL) OF TROPONIN, DEFINED THE 99TH PERCENTILE OF cTnI DISTRIBUTION IN A REFERENCE POPULATION, HAS BEEN CONFIRMED THE DECISION THRESHOLD FOR NH DIAGNOSIS.Performed By: #### HSTROPN, CMP, BNP ####[facility] [address] [address]Dr. Sea PughXR CHEST 1 Von 18-28-4716PG CHEST 1 VEXAM: XR CHEST 1 V at 1828 hours HISTORY: CHEST PAIN, UNSPECIFIED COMPARISON: [...] Electronically authenticated by: FARIBA MCCLURE Date: 2021-09-22 19:39[facility] CenterCT HEAD WO CONon [id number] HEAD WO CONCT head without contrast CLINICAL: Headache. Patient fell [...] Electronically authenticated by: KENY GREENE Date: 2021-08-26 09:53[facility] CenterCT ORBIT WO CONon [id number] ORBIT WO CONCT cervical spine CLINICAL: HEADACHE . Patient fell [...] prior exams for comparison. There is left supraorbital/periorbital soft tissue swelling with laceration. No discrete radiopaque foreign body is identified. There is no acute orbital fracture identified. The globes and orbits appear grossly normal for age. There is no intraconal or extraconal inflammation or fluid. There is paranasal sinus mucosal thickening with left maxillary sinus air-fluid level. Bilateral ostiomeatal units are patent. IMPRESSION: 1. Left supraorbital/periorbital soft tissue swelling with laceration. 2. No acute orbital fracture identified. 3. Paranasal sinus mucosal thickening with left maxillary sinus air-fluid level. 4. Intact bilateral globes. There is no intraconal or extraconal inflammation or fluid. Electronically authenticated by: KENY GREENE Date: 2021-08-26 10:03[facility] W MANUAL DIFFon [id number] LYMPH #NormalThe [facility] HospitalComment on above:Performed By: #### DDIM #### [facility] [address] [place] [address] Dr. Sea PughATYPICAL LYMPH %NormalUk HealthcareComment on above: Performed By: #### DDIM #### [facility] [address] [place] [address] Dr. Sea Li #Normal0.0-0.3The [facility] HospitalComment on above: Performed By: #### DDIM #### [facility] [address] [place] [address] Dr. Sea Li %Normal0-5The [facility] HospitalComment on above:Performed By: #### DDIM #### [facility] [address] [place] [address] Dr. Sea Daniels #0.00 103/ulNormal0.00-0.10The [facility] HospitalComment on above:Performed By: #### DDIM #### [facility] [address] [place] [address] Dr. Sea Daniels %0.0 %Critically low0.2-2.0The [facility] on above:Performed By: #### DDIM #### [facility] [address] [place] [address] Dr. Sea Estes #NormalThe [facility] HospitalComment on above:Performed By: #### DDIM #### [facility] [address] [place] [address] Dr. Sea Estes %NormalUk HealthcareComment on above:Performed By: #### DDIM #### [facility] [address] [place] [address] Dr. Sea JohnsonRRECTED WBCNormal4.0-11.0The [facility] HospitalCommymichigan medical center west branch on above: Performed By: #### DDIM #### [facility] [address] [place] [address] Dr. Yilan ChangEOS #0.21 103/ulNormal0.00-0.70The [facility] HospitalComment on above:Performed By: #### DDIM #### [facility] [address] [place] [address] Dr. Sea Kidd%2.0 %Normal0.9-7.0The [facility] HospitalComment on above: Performed By: #### DDIM #### [facility] [address] [place] [address] Dr. Sea HenryT41.3 %Critically low42.0-54.0The [facility] HospitalComment on above:Performed By: #### DDIM #### [facility] [address] [place] [address] Dr. Sea PughHGB14.1 g/dmOiswsg96.0-18.0The [facility] HospitalComment on above: Performed By: #### DDIM #### [facility] [address] [place] [address] Dr. Sea Alexandra #1.14 103/ulCritically low1.20-3.80The [facility] Comment on above:Performed By: #### DDIM #### [facility] [address] [place] [address] Dr. Sea Alexandra%11.0 %Critically low20.5-60.0The [facility] on above:Performed By: #### DDIM #### [facility] [address] [place] [address] Dr. Sea SteeleH30.9 mcKoacse72.9-34.0The [facility] HospitalComment on above: Performed By: #### DDIM #### [facility] [address] [place] [address] Dr. Sea SteeleHC34.1 g/gwEgzban91.9-35.2The [facility] HospitalComment on above:Performed By: #### DDIM #### [facility] [address] [place] [address] Dr. Sea SteeleV90.4 qBBluyug63.0-94.0The [facility] HospitalComment on above: Performed By: #### DDIM #### [facility] [address] [address] [address] Sea NovoaOCYTE #NormalThe [facility] HospitalComment on above: Performed By: #### DDIM #### [facility] [address] [address] [address] Sea NovoaOCYTE %NormalThe [facility] HospitalComment on above: Performed By: #### DDIM #### [facility] [address] [address] [address] Sea Betancourt#1.98 103/ulCritically high0.30-0.80The [facility] on above:Performed By: #### DDIM #### [facility] [address] [address] [address] Sea Betancourt%19.0 %Critically high1.7-12.0The [facility] HospitalComment on above:Performed By: #### DDIM #### [facility] [address] [address] [address] Sea PughMPV9.7 fLNormal9.5-13.5The [facility] HospitalComment on above: Performed By: #### DDIM #### [facility] [address] [address] [address] Sea Medina #NormalUk HealthcareComment on above:Performed By: #### DDIM #### [facility] [address] [address] [address] Sea CifuentesOCYTE %NormalUk HealthcareComment on above:Performed By: #### DDIM #### [facility] [address] [address] [address] Sea PughNRBCNormalThTriHealth Good Samaritan HospitalComment on above:Performed By: #### DDIM #### [facility] [address] [address] [address] Sea DiezT259 103/xsReudsn068-658Kex [facility] HospitalComment on above: Performed By: #### DDIM #### [facility] [address] [address] [address] Sea VázquezC4.57 106/ulCritically low4.70-6.10The [facility] HospitalComment on above:Performed By: #### DDIM #### [facility] [address] [address] [address] Sea PughRDW13.4 %Trtzdh79.0-15.0The [facility] HospitalComment on above: Performed By: #### DDIM #### [facility] [address] [address] [address] Sea Treadwell #7.07 103/ulCritically high1.40-6.50The [facility] Comment on above:Performed By: #### DDIM #### [facility] [address] [place] [address] Dr. Sea Treadwell %68.0 %Tnvilt17.0-75.0The [facility] HospitalComment on above: Performed By: #### DDIM #### [facility] [address] [place] [address] Dr. Sea PughWBC10.4 103/ulNormal4.0-11.0The [facility] HospitalComment on above:Performed By: #### DDIM #### [facility] [address] [place] [address] Dr. Sea PughPROF CHEM 8 (BAS METB)on 81-88-3024Qnhdu gap [Moles/Vol]13.5 mmol/LNormalThe [facility] HospitalComment on above:Performed By: #### HSTROPN, CMP, CRP #### [facility] [address] [place] [address] Dr. Sea PughCalcium [Mass/Vol]8.7 mg/dLNormal8.5-10.1The [facility] Comment on above:Performed By: #### HSTROPN, CMP, CRP #### [facility] [address] [place] [address] Dr. Sea PughChloride [Moles/Vol]97 mmol/LCritically qee17-514Qqt [facility] HospitalComment on above:Performed By: #### HSTROPN, CMP, CRP #### [facility] [address] [address] [address] Sea PughCO2 [Moles/Vol]24.2 mmol/AOqigak29.0-32.0[facility] Comment on above:Performed By: #### HSTROPN, CMP, CRP #### [facility] [address] [address] [address] Sea PughCreatinine [Mass/Vol]1.26 mg/dLNormal0.70-1.30The [facility] HospitalComment on above:Performed By: #### HSTROPN, CMP, CRP #### [facility] [address] [address] [address] Osei ChangEGFR-AF SRI LANKAN>60Normal>=60The [facility] HospitalComment on above:Performed By: #### HSTROPN, CMP, CRP #### [facility] [address] [place] [address] Dr. Sea FordGFR-NON AF OPVQTSNA92 mL/min/1.46j7Jzxufvqtyq low>=60The [facility] Hospitalment on above:Performed By: #### HSTROPN, CMP, CRP #### [facility] [address] [place] [address] Dr. Sea PughGlucose [Mass/Vol]201 mg/dLCritically feau93-542Izb [facility] HospitalComment on above:Performed By: #### HSTROPN, CMP, CRP #### [facility] [address] [place] [address] Dr. Sea PughPotassium [Moles/Vol]3.7 mmol/LNormal3.5-5.1The [facility] [facility] Comment on above:Performed By: #### HSTROPN, CMP, CRP #### [facility] [address] [place] [address] Dr. Sea PughSodium [Moles/Vol]131 mmol/LCritically acm934-223Dkj [facility] HospitalComment on above:Performed By: #### HSTROPN, CMP, CRP #### [facility] [address] [place], [place] [address] Dr. Sea PughUrea nitrogen [Mass/Vol]21.0 mg/dLCritically high7.0-18.0The [facility] HospitalCommymichigan medical center west [facility] on above:Performed By: #### HSTROPN, CMP, CRP #### [facility] [address] [place], [place] [address] Dr. Sea PughUrea nitrogen/Creatinine [Mass ratio]16.7 mg/mgNoCommunity Regional Medical CenterComment on above:Performed By: #### HSTROPN, CMP, CRP #### [facility] [address] [place], [place] [address] Dr. Sea PughXR CHEST 2 Von 14-26-8896ZL CHEST 2 VEXAM: XR CHEST 2 V HISTORY: COUGH COMPARISON: [...] Electronically authenticated by: VICENTA MARCH Date: 2021-08-22 05:46[facility] CenterXR SINUSES 3 VIEWS OR GREATERon 31-41-1723FP SINUSES 3 VIEWS OR GREATERXR SINUSES 3 VIEWS OR GREATER 08/22/2021 4:34 [...] Electronically authenticated by: LOULOU DAVIS Date: 2021-08-22 06:31NoCommunity Regional Medical CenterTobacco Screening.on 76-04-1970Lokcx depression [facility]Lu[facility] [address] DO Work Phone: Fall risk assessmenta) No falls within the last year -[facility] 250 DO Work Phone: Tobacco use status CPHSb) [facility] [place] [facility] DO Work Phone: Vital Signs Date TimeVital SignValuePerforming IjqxrlmgdZxkpdyiw73-94-8233 16:38-0400Body egorpc152.4 cmLwilder OzarkThe [facility]09-03-2025 16:38-0400Body mass index (BMI) [Ratio]24.01 kg/s7Imqxitu [facility]09-03-2025 16:38-0400Body .56 [facility]James [facility]. [facility]09-03-2025 16:38-0400Diastolic blood mm[Hg]Kristin [facility]09-03-2025 16:38-0400Heart rate64 /minChildren'S Hospital For Rehabilitationguille [facility] 11-23-2024 16:38-0400Systolic blood crkueedl479 mm[Hg]Kristin [facility]08-20-2025 14:25-0400Body sofxdb006.4 [facility]At[facility]08-20-2025 14:25-0400Body mass index (BMI) [Ratio]24.46 kg/v6LhvleiAtrium Health Navicent Baldwin08-20-2025 14:25-0400Body uojnio26.1 kgAtrium Health [facility]ic[facility]08-20-2025 14:25-0400Diastolic blood wegsdfdf01 mm[Hg] [facility]08-20-2025 14:25-0400Heart rate61 /minAtrium Health [facility]ic[facility]08-20-2025 14:25-0400Systolic blood jxqamwzu718 mm[Hg]Clyde [facility]08-14-2025 13:40-0400Body glgyld129.4 cmMarciano Hi DPM Work Phone: [facility] HospitalHqotuakxle79-16-3276 13:40-0400Body mass index (BMI) [Ratio]27.97 kg/u6RdkvaptuMarciano Hi DPM Work Phone: [facility] HospitalIddqcwvkjw58-54-5322 13:40-0400Body zkohtk73.16 kgTootiemedina Hi DPM Work Phone: [facility] HospitalYtololpsra30-18-8673 13:40-0400Respiratory rate16 /minMarciano Hi DPM Work Phone: [facility] HospitalSqjbmtpqkg42-87-1523 14:28-0400Body .4 cmVeronica Liz MD Work Phone: 1(820)[address]08-06-2025 14:28-0400 Body mass index (BMI) [Ratio]24.28 kg/m7XairhvuVeronica Liz MD Work Phone: 1(847)[address]08-06-2025 14:28-0400 Body havrrs35.46 kgVeronica Liz MD Work Phone: 1(994)[address]08-06-2025 14:28-0400 Diastolic blood zzromdcs40 mm[Hg]Veronica Liz MD Work Phone: 1(100)[address]08-06-2025 14:28-0400 Heart rate62 /Brody Liz MD Work Phone: 1(603)[address]08-06-2025 14:28-0400 Systolic blood tpyeklyo207 mm[Hg]Veronica Liz MD Work Phone: 1(012)[address]03-06-2025 13:28-0500 Body .4 cmMarciano Hi DPM Work Phone: [facility] HospitalIjsquokcvn24-72-3791 13:28-0500Body mass index (BMI) [Ratio]27.97 kg/j3Bllgrkot Brown DPM Work Phone: [facility] HospitalHbqjtvclpo46-82-6723 13:28-0500Body .16 kgNicpancho Brown DPM Work Phone: [facility] HospitalWmbulmpxhf00-64-0122 13:28-0500Respiratory rate18 /minTootiemedina Hi DPM Work Phone: [facility] HospitalHaxkguufcj02-15-2288 13:45-0500Body cvisyw324.4 cmVeronica Liz MD Work Phone: 1(496)866-[address] [place], [place] 9781901-29-2025 13:45-0500 Body mass index (BMI) [Ratio]26.25 kg/a2EcyglxzVeronica Liz MD Work Phone: 1(817)[address]01-29-2025 13:45-0500 Body .27 kgVeronica Liz MD Work Phone: 1(072)[address]01-29-2025 13:45-0500 Diastolic blood tnqikdja74 mm[Hg]Veronica Liz MD Work Phone: 1(905)[address]01-29-2025 13:45-0500 Heart rate61 /Brody Liz MD Work Phone: 1(002)[address] [place], [place] 978[address]01-29-2025 13:45-0500 Systolic blood gmbvlevu04 mm[Hg]Veronica Liz MD Work Phone: 1(699)[address]12-26-2024 11:51-0500 Body qttuwa955.4 cmFlorentinopancho Hi DPM Work Phone: [facility] HospitalSeahvtwdlb33-06-2199 11:51-0500Body mass index (BMI) [Ratio]27.97 kg/w4Damoehoi Brown DPM Work Phone: [facility] HospitalUzmhpcgpvi49-90-8093 11:51-0500Body nnwppa84.16 kgNicpancho Brown DPM Work Phone: [facility] HospitalKrqfngqoyt09-28-9730 11:51-0500Respiratory rate18 /minMarciano Hi DPM Work Phone: [facility] HospitalKyegiidmth93-16-0051 14:56-0500Body rojscz600.4 cmVeronica Liz MD Work Phone: 1([phone]11-07-2024 14:56-0500 Body mass index (BMI) [Ratio]27.31 kg/g1ZbnrjliVeronica Liz MD Work Phone: 1(405)[address]11-07-2024 14:56-0500 Body .89 kgVeronica Liz MD Work Phone: 1(883)[address]11-07-2024 14:56-0500 Diastolic blood qwtwxnoi28 mm[Hg]Veronica Liz MD Work Phone: 1(546)[address] [place], [place] [address]1911-07-2024 14:56-0500 Heart rate55 /Brody Liz MD Work Phone: 1(560)[address] [place], [place] [address]-07-2024 14:56-0500 Systolic blood lfmrssoj296 mm[Hg]Veronica Liz MD Work Phone: 1(505)[address] [place], [place] [address]10-17-2024 13:51-0400 Body omgupt448.4 cmMarciano Hi DPM Work Phone: [facility] HospitalObqqeqwvmh50-68-9547 13:51-0400Body mass index (BMI) [Ratio]27.97 kg/r2MwscbzliMarciano Hi DPM Work Phone: [facility] HospitalHukhjcjtwx39-92-5620 13:51-0400Body igyxaj09.16 kgMarciano Hi DPM Work Phone: [facility] HospitalMnxkuoiuff47-92-9358 13:51-0400Diastolic blood mm[Hg]Marciano Hi DPM Work Phone: 1(550)129-[address] [place], [place] [address]Avxvfdozhv64-96-0612 13:51-0400Heart rate81 /min Marciano Hi DPM Work Phone: [facility] HospitalAwqplibetq63-65-2891 13:51-0400Systolic blood ozslebla423 mm[Hg]Marciano Hi DPM Work Phone: [facility] HospitalRtloeyzcli85-39-5152 15:50-0400Diastolic blood garuzpwr72 mm[Hg]Veronica Liz MD Work Phone: 1(530)[address]05-09-2024 15:50-0400 Systolic blood hrcgathm321 mm[Hg]Veronica Liz MD Work Phone: 1(532)[address]05-09-2024 14:47-0400 Body vjbumw545.4 cmVeronica Liz MD Work Phone: 1(986)[address]05-09-2024 14:47-0400 Body mass index (BMI) [Ratio]28.1 kg/k2XnnbfeqVeronica Liz MD Work Phone: 1(912)[address]05-09-2024 14:47-0400 Body .62 kgVeronica Liz MD Work Phone: 1(994)[address]05-09-2024 14:47-0400 Heart rate96 /minVeronica Liz MD Work Phone: 1(947)[address]11-09-2023 14:35-0500 Body ljrzgy842.4 cmVeronica Liz MD Work Phone: 1(914)[address]11-09-2023 14:35-0500 Body mass index (BMI) [Ratio]28.89 kg/k7SsoolotVeronica Liz MD Work Phone: 1(742)[address]11-09-2023 14:35-0500 Body oejzln87.34 kgVeronica Liz MD Work Phone: 1(727)[address]11-09-2023 14:35-0500 Diastolic blood ugatvlpm59 mm[Hg]Veronica Liz MD Work Phone: [facility]11-09-2023 14:35-0500 Heart rate62 /minVeronica Liz MD Work Phone: [facility]11-09-2023 14:35-0500 Systolic blood mm[Hg]Veronica Liz MD Work Phone: [facility]05-17-2023 13:15-0400 Body ygcqmk055.42 cmCharles P House Work Phone: mp760-2045HU-Asnzr [place] [facility] [address] [place] Work Phone: 1(735)[phone] 13:15-0400Body mass index (BMI) [Ratio] 28.23 kg/z3Ghjjyvr P House Work Phone: mp252-7402UA-Atxwe [place] [facility] [address] [place] Work Phone: 1(205)[phone] 13:15-0400Body surface area Derived from formula2.21 n7Fkzftld P House Work Phone: mp611-5433EY-Urjih [place] [facility] [address] [place] Work Phone: 1(053)[phone] 13:15-0400Body muynhj10.07 kgCharles P House Work Phone: mp810-5860FC-Ulqiq [place] [facility] [address] [place] Work Phone: 1(330) 748-940805-17-2023 13:15-0400Diastolic blood eyilthle40 mm[Hg] Valente P House Work Phone: mp768-9092LR-Itmuf [place] [facility] [address] [place] Work Phone: 1(046)559-835-757490-84428126-46-2539 13:15-0400Heart rate57 /minCharles P House Work Phone: mp815-5825MS-Rnkmi [place] [facility] [address] [place] Work Phone: 1(707) 324-970105-17-2023 13:15-0400Systolic blood mm[Hg] Valente P House Work Phone: mp870-6389SH-Miuvv [place] [facility] [address] [place] Work Phone: 1(569)916-596-889355-11996596-90-6078 09:22-0400Body dbpbco292.42 cmCharles P House Work Phone: mp160-4939PO-Zrmvl [place] [facility] [address] DO Work Phone: 1(177) 934-177603-17-2023 09:22-0400Body mass index (BMI) [Ratio] 27.84 kg/j0Wfkfhoz P House Work Phone: mp006-2529SN-Yffet [place] [facility] [address] DO Work Phone: 1(707) 865-721103-17-2023 09:22-0400Body surface area Derived from formula2.2 j1Rwbxnjs P House Work Phone: mp297-0908WF-Tsbth [place] [facility] 250 DO Work Phone: 1(134)[phone] 09:22-0400Body klniew05.71 kgCharles P House Work Phone: mp478-2150JG-Vekte [place] [facility] 250 DO Work Phone: 1(469) 394-900903-17-2023 09:22-0400Diastolic blood mvdwysbq78 mm[Hg] Valente P House Work Phone: mp243-2828BO-Tvlar [place] [facility] [address] DO Work Phone: 1(886)[phone] 09:22-0400Heart rate80 /minCharles P House Work Phone: mp956-4627WO-Clllt [place] [facility] [address] DO Work Phone: 1(103) 790-811603-17-2023 09:22-0400Systolic blood hezzlogh814 mm[Hg] Valente P House Work Phone: mp347-5991UB-Erhit [place] [facility] [address] DO Work Phone: 1(679) 868-680903-16-2023 13:14-0400Body xyxrxe234.42 cmCharles P House Work Phone: mp067-3258YH-Fdauw [place] [facility] [address] DO Work Phone: 1(240) 264-323603-16-2023 13:14-0400Body mass index (BMI) [Ratio] 27.84 kg/h4Kuvmeco P House Work Phone: mp423-4699ST-Htxfy [place] [facility] [address] DO Work Phone: 1(660) 515-652003-16-2023 13:14-0400Body surface area Derived from formula2.2 b6Tytnrlu P House Work Phone: 1(319) 242-5731745-7083HW-Dwwqp [place] [facility] [address] DO Work Phone: 1(776) 804-910703-16-2023 13:14-0400Body kvdbyn45.71 kgCharmarianela P House Work Phone: 1(929) 445-1878832-4326XH-Xtrjw [place] [facility] [address] DO Work Phone: 1(649) 457-473603-16-2023 13:14-0400Diastolic blood sopirhfy31 mm[Hg] Valente Ortega House Work Phone: 1(492) 796-1131984-1343VC-Iztxd [place] [facility] 250 DO Work Phone: 1(444) 451-257103-16-2023 13:14-0400Heart wlhh934 /minCharles P House Work Phone: 1(364) 168-2272725-0250EG-Tniyu [place] [facility] 250 DO Work Phone: 1(159) 601-931203-16-2023 13:14-0400Systolic blood hncampxc787 mm[Hg] Valente P House Work Phone: 1(810) 138-7708766-0636OW-Zjogy [place] [facility] [address] DO Work Phone: 1(272) 209-799109-14-2022 10:00-0400Diastolic blood yspvrzxb54 mm[Hg] Neal Velázquez MD Work Phone: bon [facility] QXMMGK99-51-6051 10:00-0400Heart rate82 /minPaul Eber LEW Work Phone: bon [facility] FVFWNH04-41-9473 10:00-0400 Respiratory rate18 /minPaul Eber LEW Work Phone: [facility]09-14-2022 10:00-3193EzQ9% (BldA) [Mass fraction]95 %Neal Velázquez MD Work Phone: [facility]09-14-2022 10:00-0400Systolic blood rswqqsyl563 mm[Hg]Neal Velázquez MD Work Phone: [facility]09-14-2022 08:00-0400Body xtbskopfjkt73.9 [degF]Neal Velázquez MD Work Phone: [facility]09-08-2022 03:30-0400Body fdwelz445.4 cmPdamián Velázquez MD Work Phone: [facility]09-08-2022 03:30-0400Body mass index (BMI) [Ratio]27.34 kg/m2Paul Eber LEW Work Phone: [facility]09-08-2022 03:30-0400Body uhiwww24 kgPaul Eber LEW Work Phone: [facility]09-07-2022 14:19-0400Diastolic blood mm[Hg]Valente P House Work Phone: mp463-5613EP-Wrfys [place] [employer] 250 DO Work Phone: 1(420) 268-268109-07-2022 14:19-0400Systolic blood zbpzofst764 mm[Hg] Valente P House Work Phone: mp441-7610GB-Caoys [place] [employer] 250 DO Work Phone: 1(441) 742-742809-07-2022 13:40-0400Body oyoahp502.42 cmCharles P House Work Phone: mp526-9569BO-Wtjvv [place] [employer]-[place] 250 DO Work Phone: 1(713) 704-347409-07-2022 13:40-0400Body mass index (BMI) [Ratio] 28.63 kg/y8Uuugfbv P House Work Phone: mp942-5910IW-Evjoa [place] [employer] 250 DO Work Phone: 1(926) 785-788809-07-2022 13:40-0400Body surface area Derived from formula2.23 j5Htxkiwn P House Work Phone: mp724-4202FR-Bdcjc [place] [employer] 250 DO Work Phone: 1(116) 174-336809-07-2022 13:40-0400Body yoaque92.43 kgCharles P House Work Phone: mp379-8658NH-Pdpyz [place] [employer] 250 DO Work Phone: 1(388) 347-763609-07-2022 13:40-0400Diastolic blood rteskvet96 mm[Hg] Valente P House Work Phone: mp986-5216UW-Unphk [place] HeartINNFOCUS 250 DO Work Phone: 1(299) 241-816909-07-2022 13:40-0400Heart rate61 /minCharles P House Work Phone: mp250-6294OU-Dfyeq [place] [employer] 250 DO Work Phone: 1(959) 425-905509-07-2022 13:40-0400Systolic blood sttzynpr393 mm[Hg] Valente P House Work Phone: mp564-1187XJ-Wesvo [place] [employer] 250 DO Work Phone: 1(631) 784-697406-28-2022 12:15-0400Body nbnwek155.42 cmThomas Olexa Other [employer] Other 06-28-2022 12:15-0400Body mass index (BMI) [Ratio] 28.49 kg/j8Hmbuhz Olexa Other [employer] Other 06-28-2022 12:15-0400Body udwing57.98 kgThomas Olexa Other [employer] Other 06-09-2022 10:30-0400Body nhegxi477.42 cmThomas Olexa Other [employer] Other 06-09-2022 10:30-0400Body mass index (BMI) [Ratio] 28.49 kg/d4Wtyyee [facility]a [facility] [employer] Other 06-09-2022 10:30-0400Body ofemao62.98 kgThomas Olexa Other [facility] [employer] Other 03-02-2022 13:17-0500Body edzrqn066.42 cmCharles P House Work Phone: mp883-5399SV-Xpwzk [place] [employer]-[place] [address] DO Work Phone: 1(279) 431-618003-02-2022 13:17-0500Body mass index (BMI) [Ratio] 29.95 kg/x3Railnyj P House Work Phone: mp080-0554PI-Wfyex [place] [employer]-[place] [address] DO Work Phone: 1(786) 653-416303-02-2022 13:17-0500Body surface area Derived from formula2.27 e5Hbhrpvs P House Work Phone: mp714-3736TF-Omopz [place] [employer]-[place] 250 DO Work Phone: 1(399) 767-403703-02-2022 13:17-0500Body .97 kgCharles P House Work Phone: mp725-7500ZT-Vwgfc [place] [employer]-[place] 250 DO Work Phone: 1(638) 468-289303-02-2022 13:17-0500Diastolic blood opuhjkke11 mm[Hg] Valente P House Work Phone: mp444-4406IC-Xgcee [place] [facility] [address] DO Work Phone: 1(138) 376-865803-02-2022 13:17-0500Heart rate60 /minCharles P House Work Phone: mp584-5689OS-Syfgh [place] [facility] [address] DO Work Phone: 1(757) 317-213803-02-2022 13:17-0500Systolic blood scihexki861 mm[Hg] Valente P House Work Phone: mp584-7649LS-Ijwek [place] [employer]-[place] [address] DO Work Phone: Encounters Encounter DateEncounter TypeCare ProviderFacilityStart: 01-12-2025 End: 97-06-2264Woijuazmo department patient visitTim ThomasFacility:FTMCStart: 12-15-2024 End: 67-37-4699bombrnqrstOrtmzuxFilippo Chua [facility] Work Phone: Start: 12-15-2024 End: 43-30-7294Vdhgtliq ReferredGilles Mae DO-LAB [facility] Start: 11-23-2024 End: 61-49-0075Udrulhucmnhl / ancillary services managementKristin Mcmanus [facility] CenterComment on above:High risk medication use; Persistent atrial fibrillation (Multi)Start: 11-23-2024 End: 93-76-2722fxosqgrckxMWTDATWPhoebe Worth Medical Center AmbulatoryStart: 11-09-2024 End: 73-89-0358Wjprdirbzxtf / ancillary services managementClyde Yoo [facility] HospitalComment on above:Persistent atrial fibrillation (Multi) (Primary Dx); High risk medication useStart: 11-09-2024 End: 20-83-5041dnyonfayrfTINFNTOPhoebe Worth Medical Center AmbulatoryStart: 11-03-2024 End: 99-69-0078Rhdbdf outpatient visit 10 minutesNicholas A Brown DPM Work Phone: NOMS CI PODIATRYComment on above:Xerosis cutis (Primary Dx); Diabetes 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, 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); Pain due to onychomycosis of toenails of both feet; Right foot dropStart: 11-03-2024 End: 19-10-5174Itrlez flowsheetNicholas A Brown DPM Work Phone: noMS CI PODIATRYStart: 11-03-2024 End: 87-36-7911Fipsao flowsheetNicholas A Brown DPM Work Phone: noMS CI PODIATRYStart: 11-03-2024 End: 16-13-0467dykdyfqdpzMCCWHCFN A BROWNNot AvailableStart: 10-26-2024 End: 41-27-3581Phvhyk outpatient visit 25 Jose Liz MD Work Phone: uh [facility] on above:Persistent atrial fibrillation (Multi) (Primary Dx); Single vessel coronary disease; High risk medication use; Stenosis of right carotid artery; Mixed hyperlipidemia; Essential hypertension; Anemia, unspecified type; Cerebrovascular accident (CVA), unspecified mechanism (Multi); Former smoker; BMI 24.0-24.9, adult; Prolonged QT intervalStart: 10-26-2024 End: 36-55-4370rgndhqzhkfQMXFYQQPhoebe Worth Medical Center AmbulatoryStart: 08-11-2024 End: 45-49-7332qjisirypxmXAVQYKAJ A BROWNNot AvailableStart: 05-26-2024 End: 06-11-0187Rszliv Julia Hi DPM Work Phone: noMS CI PODIATRYStart: 05-26-2024 End: 09-38-2792Rwarqkjosselyn Hi DPM Work Phone: noMS CI PODIATRYStart: 05-26-2024 End: 98-10-1661Uxuktt outpatient visit 15 minutesMarciano Hi DPM Work Phone: noms CI PODIATRYComment on above:Xerosis cutis (Primary Dx); Diabetes 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, unspecified whether nursing home insulin use ([facility]); Pain due to onychomycosis of toenails of both feet; Right foot dropStart: 05-26-2024 End: 41-17-2821liitiuasbrIUEUBWHL A BROWNNot AvailableStart: 04-20-2024 End: 92-61-7482Gyjedb outpatient visit 40 Jose Liz MD Work Phone: uh [facility] on above:TIA (transient ischemic attack) (Primary Dx); Single vessel coronary disease; High risk medication use; Stenosis of right carotid artery; Persistent atrial fibrillation (Multi); Mixed hyperlipidemia; Essential hypertension; Cerebrovascular accident (CVA), unspecified mechanism (Multi); Former smoker; BMI 26.0-26.9,adultStart: 04-20-2024 End: 86-58-1556amkzdyafwxWDNNILWPhoebe Worth Medical Center AmbulatoryStart: 03-17-2024 End: 35-10-3175Xupkej Julia Hi DPM Work Phone: noms CI PODIATRYStart: 03-17-2024 End: 47-64-7846Iwixje Julia Hi DPM Work Phone: noms CI PODIATRYStart: 03-17-2024 End: 55-41-7968Fzqykq outpatient visit 10 Jose Manuel Hi DPM Work Phone: noms CI PODIATRYComment on above:Xerosis cutis (Primary Dx); Diabetes 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, 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 ([facility]); Pain due to onychomycosis of toenails of both feet; Right foot dropStart: 03-17-2024 End: 89-99-7856pnmbybvoszKCSCXMOH A BROWNNot AvailableStart: 01-28-2024 End: 86-39-8021Wdlwjm outpatient visit 25 Jose Liz MD Work Phone: uh FirelandsComment on above:Persistent atrial fibrillation (Multi) (Primary Dx); Single vessel coronary disease; Mixed hyperlipidemia; Essential hypertension; Anemia, unspecified type; Cerebrovascular accident (CVA), unspecified mechanism (Multi); High risk medication use; Former smoker; BMI 27.0-27.9,adultStart: 01-28-2024 End: 04-38-8234sfknlyvjxoZKLADJFPhoebe Worth Medical Center AmbulatoryStart: 01-07-2024 End: 63-53-3761Oahjdwjosselyn Hi DPM Work Phone: noms CI PODIATRYStart: 01-07-2024 End: 60-61-7286Yyutzn Julia Hi DPM Work Phone: noms CI PODIATRYStart: 01-07-2024 End: 39-42-5100Vvtech outpatient visit 15 minutesMarciano Hi DPM Work Phone: noms CI PODIATRYComment on above:Xerosis cutis (Primary Dx); Onychomycosis; Pain due to onychomycosis of toenails of both feet; Right foot dropStart: 01-07-2024 End: 74-38-1009lgbmjyowgnTHLNCHMC A BROWNNot AvailableStart: 07-30-2023 End: 34-23-0558Wymlbk outpatient visit 25 minutesVeronica Liz MD Work Phone: uh [facility] PartnersComment on above:High risk medication use (Primary Dx); Single vessel coronary disease; Essential hypertension; Mixed hyperlipidemia; Persistent atrial fibrillation (Multi); BMI 28.0-28.9,adult; Cerebrovascular accident (CVA), unspecified mechanism (Multi); Anemia, unspecified type; Former smokerStart: 01-29-2023 End: 75-38-7726Hvlkdz outpatient visit 25 minutesVeronica Liz MD Work Phone: uh [facility] PartnersComment on above:Single vessel coronary disease (Primary Dx); Essential hypertension; Mixed hyperlipidemia; Persistent atrial fibrillation (CMS/HCC); Anemia, unspecified type; BMI 28.0-28.9,adultStart: 26-00-2507Bg RenewalChelsearles P House Work Phone: [phone]-WklhxCharles [place] [address]A [place] Work Phone: Start: 59-36-1948bhiisftikpUdyhmwz Traboulssi Facility:[id number]: 62-64-5345Vh RenewalCharles P House Work Phone: [phone]-ImphlChildren'S [place] 250 DO Work Phone: Start: 66-73-3011BOT, Provider: Veronica Liz, Status: Pen, Time: 9:40 AMCharles P House Work Phone: mp838-2559JO-Sfbsc [place] [facility] 250 DO Work Phone: Start: 38-63-7955Zldlni outpatient visit 10 minutes Valente P House Work Phone: [phone]-Lvnng [place] [facility] 250 DO Work Phone: Start: 54-24-9176eybpwpxtbqBgwhlga [facility] Facility:[id number]: 27-70-4775Hzucwr outpatient visit 40 minutesCharles P House Work Phone: [phone]-Dleex [place] [facility] 250 DO Work Phone: Start: 18-99-2658mevuhrcgjqAunzmmd [facility] Facility:[id number]: 05-14-2022 End: 70-61-2479uilrrmtdmoBU VALENTE HOUSEFacility:L8Wgkgl: 04-20-2022 End: 30-60-1503ybndocyhjdGF VALENTE HOUSEFacility:H0Dbugm: 64-32-5704Nq Renewal Valente P House Work Phone: [phone]-RjzewWaseca Hospital And Clinicusky 250 DO Work Phone: Start: 12-20-2021 End: 89-23-9544zculpcqejeCY VALENTE HOUSEFacility:K5Mqbxn: 12-05-2021 End: 82-55-8301aokwprlnnwGH VALENTE HOUSEFacility:L2Dapxw: 11-28-2021 End: 91-53-8838Lkxquqwaye and management of inpatientMELISSA MARKERMerJohn Douglas French Centertart: 11-28-2021 End: 14-65-1606Twyzapkzwd and management of inpatientMichaelul Eber LEW Work Phone: stvz 1B Neuro ICUComment on above:Cerebrovascular accident (CVA), unspecified mechanism (HCC) (Primary Dx); HyponatremiaStart: 11-28-2021 End: 40-14-2797nfebhtbdsvAG BENITA MARKER .Facility:G0Rmely: 86-82-4866Nivjxk outpatient visit 25 minutesCharles P House Work Phone: [phone]-Tcitu [place] [facility] [address] DO Work Phone: Start: 25-30-5491syqehvyytrSytrisb Traboulssi Facility:[id number]: 96-42-7820Zy RenewalCharles P House Work Phone: [phone]-Mnhiq [facility] 250 DO Work Phone: Start: 08-91-0313ulzitkzhjbOdkvoi IbrahimFacility:9090 Start: 09-22-2021 End: 05-37-4122rfjawtqorwHY ANN Rendon LUCYECKFacility:B1Evfqg: 09-17-2021 End: 64-57-7985cpqpgiwljgGhpifu Olexa Other [employer] Other Start: 40-54-6629Gjiebj follow up visit related to original pxThomas OlexaFPG [facility]icsStart: 08-29-2021 End: 32-90-0128czzmrnnztxOroeyg Olexa Other [employer] Other Start: 08-65-7897BGJC visit new patientThomas OlexaFPG [facility]icsStart: 08-26-2021 End: 64-33-3017avtmhrbxexNZ CHARLES HOUSEFacility:U8Bvqft: 08-22-2021 End: 84-02-8794eyufysynfbFS CHARLES SACRAMENTOFacility:V4Cqswu: 46-28-2093Lfwgto outpatient visit 25 minutesCharles P House Work Phone: [phone]-Xzjez [facility] 250 DO Work Phone: Start: 87-11-9639Vklkcny encounter procedureMOFELI BENTLEYacility:1532 Procedures DateProcedureProcedure DetailPerforming ClinicianStart: 15-25-4792Beo routine ecg w/least 12 lds w/i&Humberto Liz MD Work Phone: Start: 61-38-9288Irb routine ecg w/least 12 lds w/i&r Veronica Liz MD Work Phone: Start: 22-79-0786Dqf routine ecg w/least 12 lds w/i&r Veronica Liz MD Work Phone: Start: 28-32-2896Chy routine ecg w/least 12 lds w/i&r Veronica Liz MD Work Phone: Start: 89-54-1918Tew routine ecg w/least 12 lds w/i&r Veronica Liz MD Work Phone: Start: 47-10-9716Kis routine ecg w/least 12 lds w/i&r Veronica Liz MD Work Phone: Start: 29-89-4038Uaqozec blood reagent stripJamal Chirri DO Work Phone: Start: 70-38-7794Qcocj metabolic panel calcium total Adina Hi JOSS HOUSE KEEPER - CHIEF COUNSEL Work Phone: Start: 52-24-7638Xrkacld blood reagent stripJamal Chirri DO Work Phone: Start: 12-03-2021 End: 70-25-7551Gugup of osmolality urineMohammad I Mashaleh DO Work Phone: Start: 00-92-3680Sqlvsgj blood reagent stripJamal Chirri DO Work Phone: Start: 83-85-3653Uxqsh metabolic panel calcium total Adina Hi JOSS HOUSE KEEPER - CHIEF COUNSEL Work Phone: Start: 18-63-5711Cjajmcv blood reagent stripJamal Chirri DO Work Phone: Start: 14-96-0563Wrkkgvg blood reagent stripJamal Chirri DO Work Phone: Start: 50-23-5678Rlx routine ecg w/least 12 lds trcg only w/o i&rJeffrey P Blood DO Work Phone: Start: 02-90-3225Hqxjwfs blood reagent stripJamal Chirri DO Work Phone: Start: 12-02-2021 End: 35-87-4979Lqnlf of troponin Caitlin Holguin MD Work Phone: Start: 66-09-0165Xrflg of magnesiumDanielle Holguin MD Work Phone: Start: 18-68-0848Fkb routine ecg w/least 12 lds i&r onlyJamal Chirri DO Work Phone: Start: 41-02-8074Pcweg dip stick/tablet reagent auto microscopyDebbie Villalobos MD Work Phone: Start: 07-06-6895Xmbcwlk blood reagent stripNeilmal Chirri DO Work Phone: Start: 50-91-3888Hrivenv blood reagent stripNeilmal Chirri DO Work Phone: Start: 79-81-3742Bpdlwik blood reagent stripJamal Chirri DO Work Phone: Start: 27-86-0106Rmwmbob blood reagent stripNeilmal Chirri DO Work Phone: Start: 81-30-2537Luaegrt blood reagent stripJamal Chirri DO Work Phone: Start: 67-88-7782Jhxrd metabolic panel calcium total Amanda Garcia JOSS HOUSE KEEPER - CHIEF COUNSEL Work Phone: Start: 78-69-7832Pofawml blood reagent stripJamal Chirri DO Work Phone: Start: 76-46-1517Vtij tthrc r-t 2d w/wom-mode compl spec&colr Yina Cabrera MD Work Phone: Start: 72-21-3178Ekbvbth blood reagent stripJamal Chirri DO Work Phone: Start: 11-30-2021 End: 34-81-7378Yhepu metabolic panel calcium totalAmanda Garcia JOSS HOUSE KEEPER - CHIEF COUNSEL Work Phone: Start: 91-06-7474Qbmkjmg blood reagent stripJatutu Niecy DO Work Phone: Start: 64-33-1200Txjugtj blood reagent Rose Velázquez MD Work Phone: Start: 70-01-2541Hkb routine ecg w/least 12 lds i&r onlyMayayadelfina Atkins JOSS HOUSE KEEPER - CHIEF COUNSEL Work Phone: Start: 36-03-3368Herwatv blood reagent Rose Velázquez MD Work Phone: Start: 36-05-8367Bhreh of Talat Velázquez MD Work Phone: Start: 83-74-1454Jg head/brain w/o contrast material Isidro Mehta MD Work Phone: Start: 20-82-1409Sqxduyf blood reagent Rose Velázquez MD Work Phone: Start: 50-78-2153Nxede metabolic panel calcium total Amanda Arroyo Garcia JOSS HOUSE KEEPER - CHIEF COUNSEL Work Phone: Start: 09-45-4419Mbduyqb blood reagent Rose Velázquez MD Work Phone: Start: 38-37-5979Futyuou blood reagent Rose Velázquez MD Work Phone: Start: 51-30-3442Qnpgaqy blood reagent Rose Velázquez MD Work Phone: Start: 42-87-8587Uychfvg blood reagent Rose Velázquez MD Work Phone: Start: 89-41-8693Mgjdang blood reagent Rose Velázquez MD Work Phone: Start: 26-27-6898Bok brain brain stem w/o w/contrast materialIsidro Mehta MD Work Phone: Start: 87-64-1372Ntvtg of Talat Velázquez MD Work Phone: Start: 91-42-1665Holdp panelPaul Eber LEW Work Phone: Start: 11-28-2021 End: 96-92-0041DQWGPRW, BLOOD 1Paul Eber LEW Work Phone: Start: 74-91-7693Jn angiography neck w/contrast/noncontrastChristian Dk Mehta MD Work Phone: Start: 03-91-4872Hf head/brain w/o contrast material Spiritism Dk Metha MD Work Phone: Start: 67-56-2102Ewlya metabolic panel calcium total Neal Velázquez MD Work Phone: Cataract surgeryCharles P House Work Phone: ColonoscopyCharles P House Work Phone: Elbow joint operationsCharles P House Work Phone: Operation on gallbladderCharles P House Work Phone: Procedure on backCharles P House Work Phone: TonsillectomyCharles P House Work Phone: VasectomyCharles P House Work Phone: Plan of Treatment DateCare ActivityDetailAuthorStart: 06-08-2025 End: 74-24-1742Knwdjld encounter gdxqwgbga93/19/2026 3:00 PM EDT Office Visit [facility] [address] [facility] [address] [place] [address] Veronica Liz MD [address] [facility] [address], [address] [place] [address] [facility]: 01-26[facility]2025 End: 86-32-1493Phzszus encounter obwzntbgq94/06/2025 1:50 PM EST Procedure Visit [facility] [address] [place] [address] Marciano Hi DPM [address] [facility] [address] [place] [address] [facility]RYStart: 11-11-6467Jexlvncq identified in Urine by CultureUrine CultureMercy Health St. Elizabeth Boardman Hospitaltart: 12-15-[address] [facility] Boardman Hospitaltart: 11-23-2024 End: 64-37-7339IOJ 12 LeadECG 12 Lead ECG Routine High risk medication use Persistent atrial fibrillation (Multi) Expected: 11/23/2024 (Approximate), Expires: 11/09/2025[facility] Service Area Work Phone: Comment on above:Expected: 11/23/2024 (Approximate), Expires: 11/09/2025Start: 11-23-2024 End: 29-80-7899Wgbqcleyhtcj / ancillary services ygyzllgkbq76/03/2025 2:00 PM EDT Ancillary Procedure [address] [address] uh [facility] PartnersStart: 49-27-9957NVKWY-19 Vaccine ( season)COVID-19 Vaccine ( season)[facility] Start: 73-08-0789Pxveckguq vaccinationInfluenza Vaccine (#1)[facility]Start: 11-09-2024 End: 21-36-6212NMW 12 [facility] Service Area Work Phone: Comment on above:Expected: 11/09/2024 (Approximate), Expires: 10/26/2025Start: 11-09-2024 End: 67-88-3054Anpbucsyqynm / ancillary services mbhkzsaauv82/20/2025 2:00 PM EDT Ancillary Procedure [address] [address] uh [facility] PartnersStart: 11-03-2024 End: 46-44-7696Lzrakly encounter novvjhnhp53/14/2025 2:40 PM EDT Procedure Visit [facility] [address] [address] Marciano Hi DPM [address] [facility] [address] [place] [address] Diabetes 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, 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); Pain due to onychomycosis of toenails of both feet; Right foot drop; Xerosis cutisNOMS CI PODIATRYComment on above:Diabetes 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, 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); Pain due to onychomycosis of toenails of both feet; Right foot drop; Xerosis cutisStart: 10-26-2024 End: 44-45-6352Wmxrcsb encounter /06/2025 2:30 PM EDT Office Visit [address] [address] Veronica Liz MD [address] [place] [address] 2, [facility] [address] [place] [address] [facility]: 08-11[facility]2024 End: 12-07-3373Rqltpoo encounter ceajnsdyy13/22/2025 2:10 PM EDT Procedure Visit [facility] 112 [facility] 120 [place] [address] Marciano Hi DPM [address] [address] [facility]Start: 08-03-2024 End: 06-55-8841Wwotxal encounter elrintnah74/14/2025 3:30 PM EDT Office Visit [address] [address] Veronica Liz MD [address] [facility] [address], [address] [place] [address] [facility]: 05-26-2024 End: 87-36-4459Qjfatyi encounter procedureNOMS CI PODIATRYComment on above: Diabetes 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, unspecified whether nursing home insulin use (CMS/HCC) (Primary Dx); Pain due to onychomycosis of toenails of both feet; Right foot drop; Xerosis cutisStart: 03-17-2024 End: 62-89-9057Uctsuyp encounter kxfjnhekc82/26/2024 1:50 PM EST Procedure Visit [facility] [address] [facility] [address] [place] [address] Marciano Hi DPM [address] [facility] [address] [place] [address] [facility]Start: 03-17-2024 End: 58-16-5096Zqkccpk encounter bizkmrrpb62/26/2024 11:50 AM EST Procedure Visit [facility] [address] [address] Marciano Hi DPM [address] [address] Diabetes 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,unspecified whether nursing home insulin use (CMS/HCC) (Primary Dx); Pain due to onychomycosis of toenails of both feet; Right foot drop; Xerosis cutisNOMS CI PODIATRYComment on above:Diabetes 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, unspecified whether nursing home insulin use (CMS/HCC) (Primary Dx); Pain due to onychomycosis of toenails of both feet; Right foot drop; Xerosis cutisStart: 01-28-2024 End: 63-99-9951Yfepsxq encounter /07/2024 3:10 PM EST Office Visit [facility] 7[address] [facility] [address] [place] [address] Veronica Liz MD [address] [facility] [address], [address] [place] [address] [facility]: 01-07-2024 End: 37-14-9077Tajyabg encounter hccicmatq05/17/2024 2:00 PM EDT Procedure Visit [facility] [address] [facility] [address] [place] [address] Marciano Hi, DPM [address] [facility] [address] [place] [address] Onychomycosis (Primary Dx); Pain due to onychomycosis of toenails of both feet; Right foot drop; Xerosis cutisNOMS CI PODIATRYComment on above:Onychomycosis (Primary Dx); Pain due to onychomycosis of toenails of both feet; Right foot drop; Xerosis cutisStart: 56-99-8395MIMLD-19 Vaccine ( season)COVID-19 Vaccine ()[facility]: 11-22-2023 Influenza vaccinationUnSumma Health [facility]: 07-30-2023 End: 79-74-2652Npopoxd encounter vxazmxcbq77/09/2024 3:00 PM EDT Office Visit [facility] [address] [facility] [address] [place] [address] Veronica Liz MD [address] [facility] 2, [facility] 250 [place] [address] [facility]: 88-68-8664WAP, Provider: Veronica Liz, Status: Pen, Time: 3:10 PMFUV, Provider: Veronica Liz, Status: Pen, Time: 3:10 PM-[facility] [address] [place] Work Phone: Start: 75-89-1257Jynqwowi mellitus screeningDiabetes ScreeningUnSumma Health Akron Campus: 90-79-6796Tmixurccsx A1c ocnrujfauqnI9L test (Diabetic or Prediabetic)[facility]Start: 69-53-2797Xgedc panelLipidsBON [facility]CT[facility]ITALStart: 64-97-6039QINKG-19 Vaccine ( season)COVID-19 Vaccine ()[facility]: 96-57-2692Nzcxxukqs vaccinationInfluenza Vaccine (#1)[facility]: 34-68-6881FQN, Provider: Veronica Liz, Status: Pen, Time: 1:30 PMFUV, Provider: Veronica Liz, Status: Pen, Time: 1:30 PMMP-[facility] 250 DO Work Phone: Start: 73-08-1044FUR, Provider: Veronica Liz, Status: Pen, Time: 1:20 PMFUV, Provider: Veronica Liz, Status: Pen, Time: 1:20 PM[facility] 250 DO Work Phone: Start: 04-86-6705Calnhciklr A1c measurementDiabetes: Hemoglobin T7FOKHVFulton State HospitalStart: 01-27-2022 End: 10-92-4934Vxnpiah encounter uwivtifzu90/07/2022 Office Visit Neurology AntoniJasmin MD [address] [place] [address] [facility] [address] [facility] Hospitaltart: 70-41-8519TPOFUBMV, Provider: SURJIT TIRADO [employer]ONS ELECTRICAL 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 OFFICER 1,[id number], Status: Pen, Time: 1:30 PM NURSEVST, Provider: SURJIT TIRADO WEAPONS ELECTRICAL ENGINEERING OFFICER 1,[id number], Status: Pen, Time: 1:30 PMAll[facility] 250 DO Work Phone: Start: 12-19-2021 End: 44-70-3034NE HEAD WO CONTRASTCT HEAD WO CONTRAST Imaging Routine Cerebrovascular accident (CVA), unspecified mechanism (HCC) Expected: 12/19/2021, Expires: 11/30/2022ON [facility] Phone: comment on above:Expected: 12/19/2021, Expires: 11/30/2022Start: 12-10-2021 End: 70-41-0775Xualh metabolic 2000 panel - Serum or PlasmaBasic Metabolic Panel Lab Routine Hyponatremia Expected: 12/10/2021, Expires: 01/02/2022ON [facility] Phone: comment on above:Expected: 12/10/2021, Expires: 01/02/2022tart: 39-87-9759POZ, Provider: Veronica Liz, Status: Pen, Time: 1:30 PMFUV, Provider: Veronica Liz, Status: Pen, Time: 1:30 PMMP-[facility] [address] DO Work Phone: Start: 35-32-7659Slbkwycac vaccinationFlu vaccine (#1) [facility]: 09-49-5553DLV High Risk: (Elderly (60+) or Population) (1 - 1-dose 75+ series)RSV High Risk: (Elderly (60+) or Population) (1 - 1-dose 75+ series)[facility] Start: 73-36-9402HPQTY-19 Vaccine (4 - Booster for Pfizer series)COVID-19 Vaccine (4 - Booster for Pfizer series)[facility]: 03-12-2021 COVID-19 Vaccine (4 - Pfizer series)COVID-19 Vaccine (4 - Pfizer series) [facility] CenterStfrenchglen: 00-82-9520Jaoycaqmz aortic aneurysm screeningAAA screenBON [facility]: 33-65-2071XFJ patients and/or patients aged 60+ years (1 - 1-dose 60+ series)RSV patients and/or patients aged 60+ years (1 - 1-dose 60+ series)[facility] CenterStfrenchgl[facility]: 25-59-3790Kopfpkxr vaccine (1 of 2)Shingles vaccine (1 of 2)[facility]: 73-37-2213Nfrhwt Vaccines (1 of 2)Zoster Vaccines (1 of 2)[facility]: 91-36-4622Hvnbwmdiy for malignant neoplasm of colonBON [facility]: 1968 DTaP/Tdap/Td Vaccines (1 - Tdap)DTaP/Tdap/Td Vaccines (1 - Tdap)[facility]: 12-00-8590DMfP/Tdap/Td vaccine (1 - Tdap) DTaP/Tdap/Td vaccine (1 - Tdap)[facility]: 1964 Pneumococcal vaccinationPneumococcal Vaccine (1 of 2 - PCV)[facility]: 95-26-6543Qibiotjgibvr Vaccine: 65+ Years (1 of 2 - PCV) Pneumococcal Vaccine: 65+ Years (1 of 2 - PCV)[facility]Start: 1965 Urine screening for proteinDiabetes: Urine Protein ScreeningFulton State Hospital Start: 11-19-6982Ttvbmgzo retinal examDiabetic retinal examBon [facility]ours [facility]: 15-04-5387Yovtcresb C screeningBON [facility]: 89-36-4100Rrznydcniv ScreenDepression ScreenBon Secours Memorial [facility]: 83-59-8927Qacewzxi foot examinationDiabetic foot examCARILION CLINIC Start: 71-19-9906Fdyesvky screeningDiabetes: Retinopathy ScreeningSt. Joseph Medical Centerart: 85-74-0014Wbtqxvsrqebq 65+ years Vaccine (1 - PCV)Pneumococcal 65+ years Vaccine (1 - PCV)[facility]: 93-74-2686Cllieybbnxlw Vaccine: 65+ Years (1 - PCV)Pneumococcal Vaccine: 65+ Years (1 - PCV)[facility]: 31-11-9708Mpujvbgdnkay Vaccine: 65+ Years (1 of 2 - PCV)Pneumococcal Vaccine: 65+ Years (1 of 2 - PCV)[facility]: 22-73-7730Csvfdh Wellness Visit (AWV)Annual Wellness Visit (AWV) [facility]: 97-30-3493Uwqbq panelLipid PanelUnSumma Health [facility] Campus: 08-03-1947Medicare Annual Wellness (AWV)Medicare Annual Wellness (AWV)[facility]Start: 08-03-1947Medicare Annual Wellness VisitMedicare Annual Wellness Visit (AWV)[facility] End: 05-92-9391Rjuqq metabolic 2000 panel - Serum or PlasmaBasic Metabolic Panel Lab Routine Daily for 3 Days starting 12/03/2021 until 12/05/2021, 2 completed [employer] Phone: comment on above:Daily for 3 Days starting 12/03/2021 until 12/05/2021, 2 completed End: 79-58-7349YLR W Auto Differential panel - BloodCBC with Auto Differential Lab Routine Daily for 3 Days starting 12/03/2021 until 12/05/2021, 2 completed [employer] Phone: Comment on above:Daily for 3 Days starting 12/03/2021 until 12/05/2021, 2 completedContinuous pulse oximetryPulse oximetry, continuous Respiratory Care Routine Every 4hr until discontinued starting 11/28/2021ON [facility] Phone: comment on above:Every 4hr until discontinued starting 11/28/2021Glucose [Mass/volume] in Serum or PlasmaBON [facility] Phone: comment on above:4X Daily (AC & HS) until discontinued starting 11/28/2021s Needed until discontinued starting 11/28/2021xygen therapy [Minimum Data Set]Initiate Oxygen Therapy Protocol Respiratory Care Routine As Needed until discontinued starting 11/28/2021ON [facility] Phone: comment on above:As Needed until discontinued starting 11/28/2021 End: 05-81-5605MRK clinical swallow evaluationSLP clinical swallow evaluation CRM FUNCTIONAL ANALYST Routine One Time for 1 Occurrences starting 11/28/2021 until 11/28/2021ON [facility] Phone: Comment on above:One Time for 1 Occurrences starting 11/28/2021 until 11/28/2021 End: 00-83-6073Zpffvu and language therapy regimeSpeech Language Pathology (CRM FUNCTIONAL ANALYST) eval and treat CRM FUNCTIONAL ANALYST Routine One Time for 1 Occurrences starting 11/28/2021 until 11/28/2021[facility] Work Phone: comment on above:One Time for 1 Occurrences starting 11/28/2021 until 11/28/2021 Immunizations Immunization DateImmunizationNotesCare TesxtratNquhnifu05-22-6546Iqswea-HgfPAbnc COVID-19 Vacc 30 MCG/0.3ML Intramuscular SuspensionCharles P House Work Phone: [facility] on above: Series:26-14-0212Wajoef-BioNTech COVID-19 Vacc 30 MCG/0.3ML Intramuscular SuspensionCharles P House Work Phone: [facility]03-01-2021Pfizer- BioNTech COVID-19 Vacc 30 MCG/0.3ML Intramuscular SuspensionCharles P House Work Phone: [facility] on above: Series:57-34-6795uezetkeoi virus vaccine, unspecified formulationCharles P House Work Phone: [phone]-[facility]ohpdEl[facility] Lake [facility] 250 DO Work Phone: Payers DatePayer CategoryPayerPolicy [id number]-qct [id number] 2012Medicare [id number] [id number] 1947 [id number] 2.840.1.883831.3.57[id number] 2.16840.1.840048.3.57[id number] 2.16840.1.282573.3.579.[id number] 2.16840.1.530948.3.57[id number] 2.16840.1.663198.3.579.[id number] 2.16840.1.612739.3.579.[id number] 2.16840.1.651052.3.579.2.52262-50-0517Wrevwwc9648996 2.16840.1.364316.3.579.2.59869-75-0587Dkctmdd2425131 2.16840.1.080875.3.579.2.9[id number] 2.840.1.720935.3.579.[id number] 2.840.1.711245.3.579.[id number] 2.840.1.258771.3.57[id number] 2.840.1.825674.3.579.[id number] 2.840.1.422460.3.57[id number] 2.16840.1.122175.3.579.[id number] 2.16840.1.983688.3.579.2.598790-18-0220Yavtcfd2142240 2.16840.1.851185.3.579.2.303615-33-4276Dbfbtqn0873651 2.16840.1.046836.3.579.2.111545-94-5975Lscjkle2118454 2.16.840.1.018054.3.579.2.203641-86-8237Dlofprm5785216 2.16.840.1.694376.3.579.2.305065-06-9476Tyynwfq136037794 2.16.840.1.392989.3.579.2.90[id number] 2.16.840.1.347011.3.579.2.555218-05-6443Cpgfqzl871712149 2.16.840.1.758069.3.579.2.006761-52-5116Oxnnibt911225995 2.16.840.1.098499.3.579.2.306555-30-5787Kzuheub459968839 2.16.840.1.857652.3.579.2.885118-50-2763Kchtuzh35755269 2.16.840.1.974544.3.579.2.61420-16-0535Htyhyyl08422211 2.16.840.1.210074.3.579.2.727UnknownUnknownHCAP/HFA/FAP [id number] 9fp64636-7108-9832-619z-[id number] 2.840.1.276245.3.579.2.531 Social History DateTypeDetailFacilityStart: 01-29-2023 End: 11-39-2297Zw illicit drug useNo illicit drug use-[facility] [place] 250 DO Work Phone: Comment on above:1 BEER OCCASIONALLY;2 CUPS OF COFFEE DAILY;QUIT MAR 2019;Start: 01-29-2023 End: 05-39-2400Vei Assigned At [facility] [employer] Other Start: 09-23-2021 End: 04-91-8638Ccahavb smoking status NHISEx-smokerCOPPER SPRINGS HOSPITAL [facility] Phone: End: 24-86-4062Qggaqpi of tobacco useCurrent smokerCOPPER SPRINGS HOSPITAL [facility] Phone: End: 23-74-9985Enmqscf of tobacco useCigarette SmokerCOPPER SPRINGS HOSPITAL [facility] Phone: start: 12-02-2021 End: 45-37-6929Ndirwsu intakeCurrent drinker of alcohol (finding)[facility] Phone: start: 83-97-9368Wkaawbj SDOH Alcohol Rqalubjhk5HLZ [facility] Phone: start: 36-23-7576Cxadgrr SDOH Alcohol Std Bdrhzp7HSU [facility] Phone: start: 40-60-0904Odexueh SDOH Alcohol Commentocc beer [facility] Phone: start: 34-25-2590Dnk Assigned At BirthNot on hattieCOPPER SPRINGS HOSPITAL [facility] Phone: start: 11-18-2021 End: 96-81-6075Izxjfmsr to SARS-CoV-2 (event)Not sureCOPPER SPRINGS HOSPITAL [employer] Work Phone: start: 83-96-8842Gmd Assigned At [facility] Hospitaltart: 01-29-2023 End: 38-57-8408Ypkuzfc use and exposureSmokeless tobacco non-userSycamore Medical Center Work Phone: Start: 88-30-3342Cjbzuyj CommentoccasionallyUnBlanchard Valley Health System [facility] Work Phone: Start: 31-10-8254Nudevvw smoking status NHISTobacco smoking consumption unknownPARK CITY HOSPITAL HealthcareStart: 28-69-9693Bjwbymc Commentcoffee dailyFulton State HospitalStart: 49-88-8201UfcDomvEfpocazhqeFirelands Regional Medical CenterSex Male (finding)[facility] CenterNEGATED: Highlighted rowStart: NINFHistory of tobacco usePassive [facility] Medical Equipment Procedure CodeEquipment CodeEquipment Original TextEquipment IdentifierDates Capsule endoscopy, for patency of lumen evaluationVideo capsule endoscopy system ()[id number] FDAStart: 9298Ovwsxne artery closure plug/patch, synthetic polymer()[id number] FDAStart: 03-31-2019 Clinical Notes 08-26-2021 to 01-12-2025 Note Date & JeydZzqjIqhljapx51-85-0537 NoteED Patient Education Note Nephrology Acute Kidney Injury, Adult Acute kidney injury [...] the kidneys. This may be caused by: ? Low blood pressure, shock, or severe dehydration. ? Severe blood loss. ? Heart and blood vessel disease. ? Severe sanchez. ? Liver disease. ??? Direct damage to the kidneys. This may be caused by: ? Certain medicines or toxins. ? Kidney disease. ? Contrast dye used in imaging tests. ? An infection of the kidney or bloodstream. ? Problems from surgery. ? Trauma to the kidney area. ? Organ failure. This includes heart or liver failure. ??? A sudden block in urine flow. This may be caused by: ? Cancer. ? Kidney stones. ? An enlarged prostate. What increases the risk? You may be more likely to develop this condition if: ??? You are older than 65 years of age. ??? You are female. ??? You are in the hospital. You may be even more at risk if you are very sick. ??? You have certain conditions. These may include: ? Chronic kidney or liver disease. ? Diabetes. ? Heart disease and heart failure. ? Lung disease. What are the signs or [...] back (flank). ??? Urine changes. You may: ? Make little or no urine. ? Pass urine with a weak flow. ??? [...] these instructions at home: Medicines ??? Take hzrx-clj-ubdbpiq and prescription medicines only as told by [...] your kidneys. Where to find support ??? [employer]: aakp.org ??? [employer]: akfinc.org Where to find more information ??? National Kidney Foundation: k (more content not included)...[facility]09-03-2025 History of Present illness Narrative* Kristin Mcmanus LPN - 11/23/2024 2:00 PM EDT Patient here for an EKG visit ordered [...] m (6' 1 ) documented in this encounterSycamore Medical Center Work Phone: 1(257) 554-288308-20-2025 History of Present illness Narrative* Clyde Yoo MA - 11/09/2024 2:00 PM EDT Patient is here for EKG visit ordered [...] done in office today documented in this encounterSycamore Medical Center Work Phone: 1(640) 789-340308-06-2025 History of Present illness Narrative* Veronica Liz MD - 10/26/2024 2:30 PM EDT Chief Complaint Patient presents with Follow-up 6 [...] is not available to me. He is know n to have normal renal function today's EKG [...] the direction and in the presence of MD Latasha. Provider Attestation - Scribe documentation All medical record entries made by the Scribe were at my direction and personally dictated by me. Ihave reviewed the chart and agree that the record accurately reflects my personal performance of the history, physical exam, discussion and plan. documented in this [facility] Work Phone: 1(105) 145-182908-06-2025 Instructions* Patient Instructions* Evelina Yoder RN - 10/26/2024 2:30 PM [...] three times a day documented in this [facility] [facility] Work Phone: 1(708) 210-299503-06-2025 History of Present illness Narrative* Marciano Hi DPM - 05/26/2024 1:40 PM EST Patient: Shahrzad Edgar : 1945 PCP: Noms [...] has periodically been using prescribed or recommended vaab-uku-juifgze cream with negative improvement. Patient also states he had cold exposure for many years to his feet Patient has history of right foot drop secondary to spinal surgery in the past and refused AFO rx in the past. Allergies: No Known Allergies Past Medical History: Past Medical History: Diagnosis Date Diabetes ([facility]) Medications: Current Outpatient Medications: aspirin 81 MG [...] and negative PT pedal pulses NEURO: 5.07 [place] Nacho monofilament test diminished to digits and forefoot bilaterally 125Hz tuning fork diminished to 1st MPJ bilaterally ORTHO: Positive pain on palpation to toenails of the left 1,2,3,4,5 toes and right 1,2,3,4,5 toes +4/5dorsiflexion right ankle ASSESSMENT 1. Diabetes 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, unspecified whether nursing home insulin use ([facility]) 2. Pain due to onychomycosis of toenails [...] . Patient states that he will use ioml-ule-himfpcc creams as necessary Marciano Hi DPM documented in this encounterFulton State [id number] History of Present illness Narrative* Veronica Liz MD - 04/20/2024 2:00 PM EST Subjective Shahrzad Edgar is a 78 y.o. male Chief Complaint Follow-up HPI Patient is here for earlier follow-up. He is known to have a history of coronary artery disease, atrial fibrillation maintaining sinus rhythm with sotalol. He presented recently to the hospital with difficulty with speech and diagnosed with TIA. He was at [facility]. He underwent evaluation and was seen [...] on the review of the record from [place]. He was asked To see me to [...] the direction and in the presence of MD Latasha. Provider Attestation - Scribe documentation All medical record entries made by the Scribe were at my direction and personally dictated by me. Ihave reviewed the chart and agree that the record accurately reflects my personal performance of the history, physical exam, discussion and plan. [facility]Sy[facility] Work Phone: 1(992) 991-364801-29-2025 Instructions* Patient Instructions* Shaina Floyd LPN - 04/20/2024 2:00 PM [...] 6 months Declines anticoagulation. documented in this encounterSycamore Medical Center Work Phone: 1(608) 524-330412-26-2024 History of Present illness Narrative* Marciano Hi DPM - 03/17/2024 11:50 AM EST Patient: Shahrzad Edgar : 1945 PCP: Noms Provider Unallocated, MD SUBJECTIVE This is a 78 y.o. male [...] has periodically been using prescribed or recommended mwez-uqx-neondbj cream with negative improvement. Patient also states he had cold exposure for many years to his feet Patient has history of right foot drop secondary to spinal surgery in the past and refused AFO rx in the past. Allergies: No Known Allergies Past Medical History: Past Medical History: Diagnosis Date Diabetes ([facility]) Medications: Current Outpatient Medications: aspirin 81 MG [...] and negative PT pedal pulses NEURO: 5.07 [place] Nacho monofilament test diminished to digits and forefoot bilaterally 125Hz tuning fork diminished to 1st MPJ bilaterally ORTHO: Positive pain on palpation to nails 1 through 10 +4/5dorsiflexion right ankle ASSESSMENT 1. 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 Pain due to onychomycosis of toenails [...] . Patient states that he will use qrpu-smm-prmmwkr creams as necessary Marciano Hi DPM documented in this encounterFulton State [id number] History of Present illness Narrative* Veronica Liz MD - 01/28/2024 3:10 PM EST Subjective Shahrzad Edgar is a 78 y.o. [...] fibrillation. Last time he was back in [facility] but repeat EKG today he is in [...] name below, I, Carline Camacho LPN , Scribkg attest that this documentation has been prepared under the direction and in the presence of MD Latasha. Provider Attestation - Scribe documentation All medical record entries made by the Scribe were at my direction and personally dictated by me. Ihave reviewed the chart and agree that the record accurately reflects my personal performance of the history, physical exam, discussion and plan. documented in this [facility] Work Phone: 1(126) 287-331911-07-2024 Instructions* Patient Instructions* Carline López LPN - 01/28/2024 3:10 PM [...] -19.9 Lbs Provided instructions on dietary changes. * Attachments The following attachments cannot be sent through Care Everywhere. * Heart Healthy Diet (Mauritanian) documented in this [facility] Work Phone: 1(881) 351-201010-17-2024 History of Present illness Narrative* Marciano Hi DPM - 01/07/2024 2:00 PM EDT Patient: Shahrzad Edgar : 1945 [...] has periodically been using prescribed or recommended yjle-ypm-jpkfhmu cream with minimal improvement. Patient also states he had cold exposure for many years to his feet Patient has history of right foot drop secondary to spinal surgery in the past and refused AFO rx in the past. Allergies: No Known Allergies Past Medical History: Past Medical History: Diagnosis Date Diabetes ([facility]) Medications: Current Outpatient Medications: aspirin 81 MG [...] and negative PT pedal pulses NEURO: 5.07 [place] Nacho monofilament test diminished to digits and [...] . Patient states that he will use mcal-hav-yskgtwt creams as necessary Marciano Hi DPM documented in this encounterFulton State [id number] History of Present illness Narrative* Veronica Liz MD - 07/30/2023 3:00 PM EDT Subjective Shahrzad Edgar is a 77 y.o. [...] the direction and in the presence of MD Latasha. Provider Attestation - Scribe documentation All medical record entries made by the Scribe were at my direction and personally dictated by me. Ihave reviewed the chart and agree that the record accurately reflects my personal performance of the history, physical exam, discussion and plan. documented in this [facility] Work Phone: 1(799) 368-468405-09-2024 Instructions* Patient Instructions* Shaina Floyd LPN - 07/30/2023 3:00 PM [...] 6 months with ekg documented in this [facility] Work Phone: 1(755) 815-513611-09-2023 History of Present illness Narrative* Veronica Liz MD - 01/29/2023 3:10 PM EST Subjective Shahrzad Edgar is a 77 y.o. [...] refused both I advised him that he hadvery high risk for recurrence of his stroke [...] done in office today documented in this [facility] Work Phone: 1(588) 472-698011-09-2023 Instructions* Patient Instructions* Clyde Nunez MA - 01/29/2023 3:10 PM [...] time of your visit. documented in this [facility] Work Phone: 1(186) 411-254403-16-2023 History of Present illness Narrative* Yesterday OV note. Patient showed up in the office following recent hospitalization. He did not bring his medication with him. It turns out that the patient had been out of his sotalol for several days. Apparently no changes were made in his medication following his recent stroke. Detail of his recent hospitalization is unclear * Assessment * 1. Status post prior [...] hospital for stroke. Apparently he had ran outof his sotalol for several days * 3. High-risk medication in form of sotalol * 4. Obesity with another weight gain * 5. Hypertension * 6. Hyperlipidemia * 7. Anemia was seen by hematology in the past * 8. Reformed smoker * 9. Stroke detail is lacking * Plan * 1. Advised the patient to resume his sotalol we will bring him back in 6 to 8 weeks to assess his rhythm * 2. He was counseled regarding losing weight, exercise and dietary modification * 3. Discussed with him anticoagulation and Watchman device he refused both I advised him that he hadvery high risk for recurrence of his stroke he understand * 4. We will try to retrieve retrieve his record from [facility] [address] DO Work Phone: 1(493) 328-257409-13-2022 History of Present illness Narrative* Valerie Del Toro, JOSS HOUSE KEEPER - CHIEF COUNSEL - 12/03/2021 10:12 AM EDT Images from the original note were not included. Kidd Assistant Project Manager Progress Note Date: 12/03/2021 Patient name: Shahrzad Edgar Date of admission: 11/28/2021 3:15 AM Date of : 1945 PCP: No primary care provider on file. Reason for Admission: Brain mass [G93.89] Subjective: Clinical Changes / Abnormalities: Pt seen and examined in the room. Pt remains afib rate controlledon amio gtt. Medications: Scheduled Meds: lisinopril 10 [...] (HCC) COPD (chronic obstructive pulmonary disease) (HCC) [id number] Score for Atrial Fibrillation Stroke Risk Risk Factors Component Value C CHF No 0 H HTN Yes 1 A2 Age >= 75 Yes, (76 y.o.) 2 D DM Yes 1 S2 Prior Stroke/TIA No 0 V Vascular Disease No 0 A Age 65-74 No, (76 y.o.) 0 Sc Sex male 0 [id number] Score 4 Score last updated 12/03/21 10:13 [...] d/c gtt and start on PO Continue BBand ASA Sotalol d/c'd due to prolonged qtc Cleared for AC per GI. Plan for repeat CT 12/19 and will start on DOAC if stable No further cardiac workup at this time. Please call with further questions or concerns [employer] [phone] * Jasmin Corrales MD - 12/03/2021 8:49 AM EDT [facility] Neurology IN-PATIENT SERVICE [facility] Progress Note Date: 12/03/2021 Patient name: Shahrzad Edgar Date of admission: 11/28/2021 3:15 AM Account: [id number] Date of : 1945 PCP: No primary care provider on file. Room: [address] [place] [address] Code Status: Full Code Chief Complaint: Right [...] He is eager to be discharged to [facility]. Patient counseled regarding treatment follow-up plan, expressed [...] temporal headache with dizziness. Initially evaluated at [facility] and later transferred to [facility] after CT head was done showing an [...] bleed. GI was consulted who did clear thepatient for AC given that there is no active bleeding at this time and hemoglobin remains stable. Pl an is to repeat CT head on 12/12/21 [...] for abdominal distention, abdominal pain, constipation, diarrhea, nauseaand vomiting. Genitourinary: Negative for difficulty urinating, dysuria [...] Labs 12/02/21 0857 12/02/21 1201 12/02/21 1655 12/02/212052 POCGLU 188* 197* 220* 164* No intake [...] ms QTc Calculation (Bazett) 516 ms R [place] 23 degrees T [place] 48 degrees POC Glucose Fingerstick Collection Time: [...] 1.07 (L) 1.10 - 3.70 k/uL Absolute [place] # 1.20 0.10 - 1.20 k/uL Absolute [...] >60 >60 mL/min GFR Comment Recent Labs 12/03/217 WBC 11.0 RBC 4.25 HGB 13.1 HCT 37.0* MCV 87.1 MCH 30.8 MCHC 35.4* RDW 13.7 PLT 223 MPV 10.6 Recent Labs 12/03/21 0407 NA 133* K 3.9 CL 101 CO2 18* BUN 12 CREATININE 0.67* GLUCOSE 156* CALCIUM 8.0* Hemoglobin A1C Date Value Ref Range Status 11/28/2021 8.1 (H) 4.0 - 6.0 % Final Assessment : Primary Problem Cerebrovascular accident (CVA) ([facility]) Active Hospital Problems Diagnosis Date Noted Atrial fibrillation with RVR ([facility]) [I48.91] 12/02/2021 Priority: Medium Type 2 diabetes mellitus without complication, without long-term current use of insulin ([facility]) [E11.9] 12/02/2021 Priority: Medium Primary hypertension [I10] 12/02/2021 Priority: Medium COPD (chronic obstructive pulmonary disease) ([facility]) [J44.9] 12/02/2021 Priority: Medium PAF (paroxysmal atrial fibrillation) ([facility]) [I48.0] 11/29/2021 Priority: Medium Anemia [D64.9] 11/29/2021 Priority: Medium Cerebrovascular accident (CVA) ([facility]) [I63.9] 11/28/2021 Priority: Medium Otitis media with [...] medical management PT/OT/ST Plan for discharge to [facility] today Follow-up further recommendations after discussing the [...] history and exam findings with the resident/ CHIEF COUNSEL. I reviewed medications, clinical labs, x-rays and other diagnostic tests with the resident/ CHIEF COUNSEL. I have seen and examined the patient and the lamas elements of the encounter have been performed by me. I agree with the assessment, plan and orders as documented by the resident or CHIEF COUNSEL. Impression and Plan: Mr. Shahrzad Edgar is [...] derivation. Reymundo Tomas MD 12/03/2021 7:34 PM * Dany Arroyo DO - 12/03/2021 8:19 AM EDT Images from the original note were not included. [facility] Office: [phone] Darrius Mattson DO, Valente Kaur DO, Noel Lin DO, Gilles Mantilla DO, Ernst Pond MD, Sara Dalal MD, Lizbet Grossman MD, Ernestine Colvin MD, Gaurav Macias MD, Jyoti Dale MD, Moody CanasDO, Jennifer Kaur MD, Dany Arroyo DO, Abbi Kirkland MD, Kye Adam MD, Keny Mattson DO, Phuong Cannon MD, Dustin Degroot MD, Susan Castro MD, Aaliyah Rudolph MD, Mary Concepcion MD, Dorcas Ness MD, Osmin Marlow DO, Zena Irby MD, Lewis See MD, Blanka Martin, CHIEF COUNSEL, Nicky Gonzalez, CHIEF COUNSEL, Pattie Vasquez, CHIEF COUNSEL, Prem Potter, CHIEF COUNSEL, Adrienne Domingo, MIYA, Marissa Hamilton, CHIEF COUNSEL, Lida Soto, CHIEF COUNSEL, Rosmery Bryan, CHIEF COUNSEL, Cici Antoine, CHIEF COUNSEL, Leslie Chen, CHIEF COUNSEL, Lalito Baker PA-C, Kathy Wilder, COMPLIANCE DIRECTOR, Janet Bar, MIYA, Triny Francois, CHIEF COUNSEL, Mary Ortiz, CHIEF COUNSEL, Sue Rivera, CHIEF COUNSEL [facility] IN-PATIENT SERVICE [facility] Progress Note 12/03/2021 8:19 AM Name: Shahrzad Edgar Acct: [id number] Room: 0122/0122-01 Day: 5 Admit Date: 11/28/2021 3:15 AM [...] (HCC), Gangrenous cholecystitis, History of blood transfusion, andHypertension. Social History: reports that he has quit [...] ending 12/03/21 0819 Labs: Hematology: Recent Labs 12/01/21 0352 12/03/21 0407 WBC 15.0* 11.0 RBC 5.11 4.25 [...] 15 15 -- Recent Labs 12/01/21 1819 12/01/213 12/02/21 0857 12/02/21 1201 12/02/21 1655 12/02/21 205 POCGLU 129* 132* 188* 197* 220* 164* ABG:No results found for: POCPH, PHART, PH, POCPCO2, RCN2ELR, PCO2, POCPO2, PO2ART, PO2, POCHCO3, RVN2UXA, HCO3, NBEA, PBEA, BEART, BE, THGBART, THB, GCF9JKX, ONUL3IFF, D7CLTQEZ, O2SAT, FIO2 Lab Results Component Value Date/Time SPECIAL r hand 20ml 11/28/2021 07:37 AM Lab Results Component Value Date/Time CULTURE NO GROWTH 5 DAYS 11/28/2021 07:37 AM Radiology: CT HEAD WO CONTRAST Result Date: 11/29/2021 Similar presumed right MCA distribution infarct with mild adjacent mass effect and minimal leftwardmidline shift. Similar punctate focus of presumed hemorrhage. CT HEAD WO CONTRAST Result Date: 11/28/2021 1. Findings appear most consistent with subacute (1-2 week range) infarct in the region of right Z3obtfebdr division with petechial hemorrhage in areas along [...] range) infarct in the region of right N5zsvfyejy division with petechial hemorrhage in areas along [...] POA * (Principal) Cerebrovascular accident (CVA) ([facility]) 11/30/2021 Yes Otitis media with effusion, left 11/28/2021 Yes PAF (paroxysmal atrial fibrillation) ([facility]) 12/02/2021 Yes Anemia 11/29/2021 Yes Atrial fibrillation with RVR ([facility]) 12/02/2021 No Primary hypertension 12/02/2021 Yes Type 2 diabetes mellitus without complication, without long-term current use of insulin ([facility]) 12/02/2021 Yes COPD (chronic obstructive pulmonary disease) ([facility]) 12/02/2021 Yes Plan: Middle ear mastoid effusion: Continue cefdinir for total of 5 days and reevaluate response. Outpt ENT evaluation in 4 weeks. Overweight BMI 27: Recommend weight loss lifestyle modification Urinary retention: Voiding trial , continue flomax. Diarrhea: Augmentin was discontinued, patient started on cefdinir. 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 Needs outpt BMP inone week. Add fluid restriction. Paroxysmal atrial fibrillation: Cardiology following. Continue lopressor and amiodarone with plans to start DOAC when okay with neurology. Was taken off of sotalol. Primary HTN: goal blood pressure less than 160, currently at goal. PTOT DVT ppx No other recommendations from medicine perspective will sign off. Please call with questions. Dany Arroyo DO 12/03/2021 8:19 AM * Ofe Serrano, PT - 12/02/2021 3:22 PM EDT Physical Therapy Facility/Department: [address] NEURO ICU Daily Treatment Note NAME: [...] verbally reminded to do so; able to train control electronic technician margie stedy with max A+1, again leans [...] education, & procurement;Endurance training;Wheelchair mobility training;Neuromuscular re-education;Cognitive reorientation;Positioning;Therapeutic activities PT Plan of Care: Daily Restrictions [...] on upright posture, correcting L lean; pt notpushing with his RUE, but still leaning hard [...] with least restrictive AD Additional Goals?: No Investigator Utility Bill Complaints Goals Additional Goals?: No Education Patient Education Education Given To: Patient Education Provided: Role of Therapy;Plan of Care;Precautions;Transfer Training;Fall Prevention Strategies Education Method: Demonstration;Verbal;Teach Back Barriers to Learning: Cognition Education Outcome: Continued education needed Therapy Time Individual Concurrent Group Co-treatment Time In 1411 Time Out 1521 Minutes 70 Timed Code Treatment Minutes: 47 Minutes Zach Thakur PT * Sheri Serna - 12/02/2021 12:50 PM EDT Speech Language Pathology Speech Language Pathology [facility] Cognitive and Speech Treatment Note Date: 12/02/2021 Patient s Name: Shahrzad Edgar Diagnosis: Patient Active Problem List Diagnosis Code Cerebrovascular accident (CVA) ([facility]) I63.9 Otitis media with effusion, left H65.92 History of atrial fibrillation Z86.79 Anemia D64.9 Pain: 0/10 Cognitive Treatment Treatment time: 9524-2822 Subjective: [x] Alert [x] Cooperative [] Confused [] Agitated [] Lethargic Objective/Assessment: Recall: Delayed Recall - Associated Lists: 11/29 independently Organization: Category Members - [place]: 02/01 increased to 03/03 with mod verbal cue Problem Solving/Reasoning: Word Deduction: 1516 increased to 1616 with mod verbal cue Multiple Uses for [...] recommended at discharge. Completed by: Sheri Serna Cement Crusher Operator Clinician Cosigned By: Ayla White M.S.CCC/CRM FUNCTIONAL ANALYST * Evelin Griffin RN - 12/02/2021 8:59 AM EDT Kidd Assistant Project Manager Documentation Note Admission Dx: Brain mass [G93.89] Past Medical History: has a past medical history of Arthritis, COPD (chronic obstructive pulmonary disease) (HCC), Diabetes mellitus (HCC), History of blood transfusion, and Hypertension. Previous Testing: ECHO 11/30/2021: EF 54%, negative bubble study, no valvular abnormalities. Previous office/hospital visit: None Evelin Griffin RN [place] Assistant Project Manager * Zena Irby MD - 12/01/2021 11:32 AM EDT NEUROLOGY INPATIENT PROGRESS NOTE 12/01/2021 Subjective: Shahrzad [...] of arrival. Excedrin was tried but did nothelp. Patient was initially evaluated at [facility] and noted to have left upper [...] prior to transfer over. Upon arrival at [place], patient's blood pressure was normotensive. Evaluated by [...] & R lateral ventricle effacement with 3mm L- francois shift. F/U CT HEAD (11/29/2021): Similar presumed [...] started at that time. Continue on Statin PT/OT/CRM FUNCTIONAL ANALYST Urinary retention - will obtain urology consulation [...] clinical laboratory, imaging and other diagnostic tests withthe residents. I agree with the assessment, plan and orders as documented by the resident with changes made to the note as needed. Allan Pemberton DO 12/01/2021 9:00 PM * Rosmery Walsh - 11/30/2021 3:04 PM EDT Echo was completed at the bedside. * LITTLE SELF - 11/30/2021 2:49 PM EDT Physical Therapy Facility/Department: [address] NEURO ICU Daily Treatment Note Name: [...] Pt pleasant and cooperative t/o. Pt c/o 8/10 headache after session; RN notified. Cognition Orientation [...] 8 minutes, pushing with R UE to theL side with maxA x 1-2 to maintain. [...] decrease pushing with R UE. OutComes Score AM-[facility] Score -[facility] Inpatient Mobility Raw Score : 8 (11/30/211436) -[facility] Inpatient T-Scale Score : 28.52 (11/30/211436) Mobility [...] with least restrictive AD Additional Goals?: No Investigator Utility Bill Complaints Goals Additional Goals?: No Education Patient Education Education Given To: Patient Education Provided: Role of Therapy;Plan of Care Education Method: Demonstration;Verbal Barriers to Learning: Cognition Education Outcome: Continued education needed;Demonstrated understanding Therapy Time Individual Concurrent Group Co-treatment Time In 1411 Time Out 1435 Minutes 23 Timed Code Treatment Minutes: 23 Minutes LITTLE SELF PTA * Alexander Grey, ELLIOT - LAURENCE - 11/30/2021 11:27 AM EDT Neurology Nurse Practitioner Progress Note INTERVAL HISTORY: [...] who was admitted as a transfer [facility] on 11/[facility]/2021 for R temporal headache. Patient reported he had developed right temporal headache and dizziness on the day of arrival. Excedrin did not help. He was seen by his manager of transportation and was told that his BP was elevated; he was started on lisinopril 5 mg daily. He was initially evaluated at [facility]. Patient was noted to have left [...] was concern for possible mass. Patient has historyof A. fib for which she was taking Eliquis however it was discontinued in May 2021 due to severe anemia and subsequent GI bleed in September 2021. Case was discussed with Dr. Velázquez who recommended Decadron 10 mg IV and Keppra 500 mg IVPB x1 prior to be transferred to [facility] for higher level of care. Patient was directly admitted to neuro ICU. HOSPITAL COURSE: Upon arrival, the pressure was 130/64 mmHg, pulse 87. Patient was evaluated by thestroke team; NIH score was 8. MRI brain [...] & R lateral ventricle effacement with 3mm L- francois shift. F/U CT HEAD (11/29/2021): Similar presumed [...] midline shift. F/U CT head (11/29) - stable.Pt was A&Ox3, with residual L hemiparesis. Headache had resolved A fib. Pt was on Eliquis that was D/C'd in 05/2021 due to severe anemia & GI bleed (09/2021) L middle ear & mastoid effusion; was started on PO Augmentin x 7 days & Ofloxacin drops x 7days, by ENT HTN; on lisinopril 5 mg [...] to ensure the accuracy of this automated service attendant cafeteria, some errors in service attendant cafeteria may have occurred. Associated attestation - Allan [...] needed. Allan Pemberton DO 11/30/2021 11:36 PM * Marita Robbins RN - 11/30/2021 6:52 AM EDT 221 new orders received Mag and extra strength tylenol to treat headache clarified and admin per orders Irregular hr noted this am * Marita Robbins RN - 11/29/2021 9:05 PM EDT Pt has a headache / pain, per pt tylenol ordered doesn't help at all. Neuro MD notified * Benita Quezada OT - 11/29/2021 5:44 PM EDT Occupational Therapy Facility/Department: [address] NEURO ICU Occupational Therapy Initial Assessment [...] living situation. He will benefit from continued participationin acute and post-acute OT services to improve [...] & training, Safety education & training, Pain ma nagement, Cognitive reorientation, Self-Care / ADL, Cognitive/Perceptual training, [...] throughout. Reported BENAVIDES pain, which worsened with movement/ activity. Social/Functional History Social/Functional History Lives With: [...] use in appartment) Transfer Assistance: Independent Active Load Blocker: Yes Mode of Transportation: Car Occupation: Retired Leisure & Hobbies: [employer] Objective Safety Devices Type of Devices: All fall risk precautions in place;Bed alarm in place;Call light within reach;Gaitbelt;Left in bed;Nurse notified (RN present at end [...] Mod Assist for static sitting balance. Demo'd pushingthrough RUE (when holding bedrail, and when supporting [...] LUE weight-bearing, Pt will maintain Fair Dynamic SittingBalance (13-15 mins) during functional tasks. Short Term [...] Time Individual Concurrent Group Co-treatment Time In 849 Time Out 921 Minutes 32 Timed Code Treatment Minutes: 24 Minutes (ADL + TherAct) MUNDO Richey, ELIANR/L * SHAQUILLE JENKINS - 11/29/2021 3:46 PM EDT Physical Therapy Facility/Department: [address] NEURO ICU Physical Therapy Initial Assessment [...] exact time). He was initially evaluated at [facility]. Patient was reported to have been at manager of transportation earlier today, and BP was elevated, but patient unable to state how elevated. No improvement with Excedrin. Patient denies any other blood thinners aside from aspirin. At [facility] facility patient noted to have clear [...] in his left ear for some drainage andwhen removed, did have purulent material. CT head from [facility] showed area of hypoattenuation in right parietotemporal region withright sided sulcal effacement and loss of mitchell white differentiation concerning for an acute infarct. There is a trace hemorrhage noted within the anterior right temporal lobe measuring 4.5 x7.8mm. Mild effacement of the right lateral ventricles visualized, no evidence for obstructive hydrcephalus.Minimal leftward 4mm midline shift with no evidence for herniation. Also noted to have complete opacification of the left mastoid air cells. Discharge Recommendations: Further therapy recommended at discharge.The patient should be able to tolerate at least 3 hours oftherapy per day over 5 days or 15 [...] in bed with HOB elevated upon arrival forPT eval Subjective Subjective: Pt reported no c/o [...] use in appartment) Transfer Assistance: Independent Active Load Blocker: Yes Mode of Transportation: Car Occupation: Retired Leisure & Hobbies: [employer] Vision/Hearing Vision: Needs glasses for reading Hearing: [...] sitting EOB for ~13 mins. AM-PAC Score [facility] Inpatient Mobility Raw Score : 9 (11/29/211544) [facility] Inpatient T-Scale Score : 30.55 (11/29/211544) Mobility Inpatient CMS 0-100% Score: 81.38 (11/29/211544) Mobility Inpatient [facility] G-Code Modifier : CM (11/29/211544) Goals [...] with least restrictive AD Additional Goals?: No Retirement Goals Additional Goals?: No Education Patient Education [...] Signing PT agrees with treatment and documentation. * Guevara Kaur DO - 11/29/2021 2:50 PM EDT Images from the original note were not included. Neuro Critical Care Sign Out to Neurology Date and time: 11/29/2021 2:50 PM Patient's name: Shahrzad Edgar Patient's account/billing number: [id number] Patient's Date of : 1945 Age: 76 y.o. Date of Admission: 11/28/2021 3:15 AM Length of stay during current admission: 1 Primary Care Physician: No primary care provider on file. Code Status: Full Code Mode of physician to physician communication: [] Via telephone [x] In person Date and time of sign-out: 11/29/2021 2:50 PM Accepting Neurology DRILLING FIELD SPECIALIST: Adina Do NP Accepting team's attending: Dr. [...] admitting resident will be following up the patientfrom now onwards on the floor. Guevara Kaur DO Neuro Critical Care 11/29/2021, 2:50 PM * ROBBY Hall - 11/29/2021 12:45 PM EDT Speech Language Pathology Speech Language Pathology [facility] Dysphagia Treatment Note Date: 11/29/2021 Patient [...] Provided with Soft Solids, Puree, Thin and [place] thick trials. Pt. With no overt s/s [...] discharge. Treatment completed by: ROBBY Hall, M.S. CCC-CRM FUNCTIONAL ANALYST * Sheri Senra - 11/29/2021 11:47 AM EDT Speech Language Pathology Speech Language Pathology [facility] Cognitive and Speech Treatment Note Date: [...] 8/9 with repetitions Organization: Category Members - [place]: 27/36 increased to 36/36 with min-mod verbal [...] recommended at discharge. Completed by: Sheri Serna Cement Crusher Operator Clinician Cosigned By: Ayla White M.S.CCC/CRM FUNCTIONAL ANALYST * Joseph Mcdonnell, PT - 11/29/2021 9:28 AM EDT Images from the original note were not included. Physical Therapy Physical Therapy Cancel Note DATE: 11/29/2021 NAME: Shahrzad Edgar : 1945 Patient not seen this date for Physical Therapy due to: Other: Pt with OT, to CT, then speech. Ck pm as able * Guevara Kaur, DO - 11/29/2021 6:48 AM EDT Images from the original note were not included. Daily Progress Note Neuro Critical Care Patient Name: Shahrzad Edgar Patient : 1945 Room/Bed: [facility]0122-01 Code Status: Full Code Allergies: Allergies Allergen [...] Guevara Kaur DO Neuro Critical Care Pager [phone] 11/29/2021 6:48 AM Associated attestation - Neal [...] prophylaxis. Maintain SBP < 160. Incentive spirometry. CRM FUNCTIONAL ANALYST eval. PT/OT. Insulin sliding scale. Stepdown. Discharge planning. I independently reviewed all labs, imaging and EKG tracings * ROBBY Hall - 11/28/2021 3:02 PM EDT Speech Language Pathology Facility/Department: [address] NEURO ICU CLINICAL BEDSIDE SWALLOW EVALUATION [...] exact time). He was initially evaluated at [facility]. Patient was reported to have been at manager of transportation earlier today, and BP was elevated, but patient unable to state how elevated. No improvement with Excedrin. Patient denies any other blood thinners aside from aspirin. [facility] noted to have clear [...] in his left ear for some drainage andwhen removed, did have purulent material. CT head from [facility] showed area of hypoattenuation in right parietotemporal region withright sided sulcal effacement and loss of mitchell white differentiation concerning for an acute infarct. There is a trace hemorrhage noted within the anterior right temporal lobe measuring 4.5 x7.8mm. Mild effacement of the right lateral ventricles visualized, no evidence for obstructive hydrcephalus.Minimal leftward 4mm midline shift with no evidence for herniation. Also noted to have complete opacification of the left mastoid air cells. Dr. Velázquez recommended 10mg IVV Decadron and 500mg IV keppra prior to transfer to Neuro ICU at [place]. Pain: Pain Assessment Pain Assessment: 0-10 Pain [...] 2: Moderate Severe dysphagia- Maximum assistance or maximumuse of strategies with partial PO only Treatment Plan Requires CRM FUNCTIONAL ANALYST Intervention: Yes D/C Recommendations: Ongoing speech therapy [...] Patient Education Response: Needs reinforcement Therapy Time [id number] ROBBY Hall 11/28/2021 3:02 PM * Sheri Serna - 11/28/2021 1:30 PM EDT Speech Language Pathology Facility/Department: [address] NEURO ICU Initial Speech/Language/Cognitive Assessment NAME: [...] exact time). He was initially evaluated at [facility]. Patient was reported to have been at manager of transportation earlier today, and BP was elevated, but [...] in his left ear for some drainage andwhen removed, did have purulent material. CT head from outlying facility showed area of hypoattenuation in right parietotemporal region withright sided sulcal effacement and loss of mitchell white differentiation concerning for an acute infarct. There is a trace hemorrhage noted within the anterior right temporal lobe measuring 4.5 x7.8mm. Mild effacement of the right lateral ventricles visualized, no evidence for obstructive hydrcephalus.Minimal leftward 4mm midline shift with no evidence for herniation. Also noted to have complete opacification of the left mastoid air cells. Dr. Velázquez recommended 10mg IVV Decadron and 500mg IV keppra prior to transfer to Neuro ICU at [place]. Pain: Pain Assessment Pain Assessment: 0-10 Pain [...] noted deficits. Education provided. Recommendations: Recommendations Requires CRM FUNCTIONAL ANALYST Intervention: Yes Patient Education: yes Patient Education [...] With: Friend(s) Type of Home: Apartment Active Load Blocker: Yes Vision Vision: Within Functional Limits Hearing Hearing: Within functional limits Objective: Oral Motor Labial: No impairment Lingual: Decreased strength (Left ROM) Motor Speech Apraxic Characteristics: None Dysarthric Characteristics: Decreased breath support;Other (comment);Blended word boundaries (harshvocal quality) Cognition: Orientation Overall Orientation Status: Within [...] 1058 Minutes 12 Completed by: Sheri Serna Cement Crusher Operator Clinician Cosigned By: Ayla White M.S.CCC/CRM FUNCTIONAL ANALYST * Raymnudo Dallas RPH - 11/28/2021 6:36 AM EDT [facility] Pharmacokinetic Monitoring Service - Vancomycin Shahrzad [...] RPH 11/28/2021 6:35 AM documented in this encounterBON [facility] Phone: 1(129) 895-681609-12-2022 Hospital Discharge instructions* Discharge Instr - NORMA* Reese Schofield RN - 12/02/2021 2:45 PM EDT Continuity of Care Form Patient Name: Shahrzad Edgar : 1945 Admit date: 11/28/2021 Discharge date: 12/03/2021 Code Status Order: Full Code Advance Directives: Admitting Physician: Allan Pemberton DO PCP: No primary care provider on file. 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 Immunization History: Immunization History Administered Date(s) Administered COVID-19, PFIZER PURPLE top, DILUTE for use, (age 12 y+), 30mcg/0.3mL 05/21/2020, 06/12/2020, 01/15/2021 Active Problems: Patient Active Problem List Diagnosis Code Cerebrovascular accident (CVA) ([facility]) I63.9 Otitis media with effusion, left H65.92 [...] Assisted Dressing Assisted Toileting Independent Feeding Independent Furnace Keeper Independent Med Delivery whole Wound Care Documentation [...] Dysphagia soft Routes of Feeding: Oral Liquids: [place] Thick Liquids Daily Fluid Restriction: 1500 Last [...] Readmission: 13 Discharging to Facility/ Agency [facility]: [facility] Address: Phone: Fax: Dialysis Facility (if applicable) Name: Address: Dialysis Schedule: Phone: Fax: Electronics Engineering Technician/Histology Assistant signature: PHYSICIAN SECTION Prognosis: {Prognosis:6752300531} Condition at Discharge: { Patient Condition:003023347} Rehab Potential (if transferring to Rehab): {Prognosis:6411692382} Recommended Labs or Other Treatments After Discharge: Physician Certification: I certify the above information and transfer of Shahrzad Edgar is necessary for the continuing treatment of the diagnosis listed and that he requires {Admit to Appropriate Level of Care:11749} for {GREATER/LESS:060712508} 30 days. Update Admission H&P: {CHP DME Changes in HandP:322549463} PHYSICIAN SIGNATURE: * Attachments The following attachments cannot be sent through Care Everywhere. * Statins (Mauritanian) * Ischemic Stroke: General Info (Mauritanian) * Stroke: Symptoms: General Info (Mauritanian) * Diabetes: Heart Attack and Stroke Risk: General Info (Mauritanian) documented in this encounterBON [facility]You[facility] Work Phone: 1(763) 519-604506-28-2022 Evaluation note* Encounter Date Diagnosis Assessment Notes Treatment Notes Treatment Clinical Notes Aug, Left hand pain (ICD-10 - M79.642 ) Aug, losed displaced fracture of proximal phalanx of left little finger with routine healing, subsequent encounter (ICD-10 - S62.617D)Radiographs reviewed with patient today. Discussed with patient to work on range of motion exercises [employer] Other 06-09-2022 Evaluation note* Encounter Date Diagnosis Assessment Notes Treatment Notes Treatment Clinical Notes Aug, Left hand pain (ICD-10 - M79.642 ) Aug, losed displaced fracture of proximal phalanx of left little finger, initial encounter (ICD-10 - S62.617A)Extensive discussion about current condition and treatment options available. Patient has sustaineda 5th finger fracture. This is stable and we will treat nonoperatively at this time. Patient instructed on leanne taping to the ring finger and gentle ROM exercises. Patient also instructed on the useof splint as needed and instructed to limit strenuous weight bearing on the affected hand. Discussed this can take at least 6 weeks to heal. Instructed on gentle motion of the fingers. Advised patient ice and elevate to decrease pain and swelling. [employer] Other 06-06-2022 NotePROCEDURE: XR HAND LT MIN 3V COMPARISON: None. HISTORY: Pain FINDINGS: BONES:Subtle contour deformity identified at the base of the fifth proximal phalanx. No dislocation. Mild degenerative changes. SOFT TISSUES:Negative. No visible soft tissue swelling. EFFUSION:None visible. OTHER: Negative. IMPRESSION: Suspected nondisplaced fracture base of the fifth proximal phalanx Electronically authenticated by: REINA GO Date: 2021-08-26 10:45[facility] HealthcareEvaluation note* Diagnosis Cerebrovascular accident (CVA), unspecified mechanism [...] (HCC) Intracerebral hemorrhage documented in this encounter [facility] Work Phone: evaluation noteNo assessment information available [facility] Work Phone: Evaluation note* Diagnosis Single vessel coronary disease- Primary Essential hypertension Unspecified essential hypertension Mixed hyperlipidemia Persistent atrial fibrillation (CMS/HCC) Atrial fibrillation Anemia, unspecified type BMI 28.0-28.9,adult documented in this encounter [facility] Work Phone: Evaluation note* Diagnosis High risk medication use- Primary Single vessel coronary disease Essential hypertension Unspecified essential hypertension Mixed hyperlipidemia Persistent atrial fibrillation (Multi) Atrial fibrillation BMI 28.0-28.9,adult Cerebrovascular accident (CVA), unspecified mechanism (Multi) Anemia, unspecified type Former smoker Personal history of tobacco use, presenting hazards to health documented in this encounter [facility] Work Phone: Evaluation note* Diagnosis Xerosis cutis- Primary Other specified disease of sebaceous glands Onychomycosis Dermatophytosis of nail Pain due to onychomycosis of toenails of both feet Right foot drop Other acquired deformity of ankle and foot documented in this encounter [facility] HealthcareEvaluation note* Diagnosis Persistent atrial fibrillation (Multi)- Primary Atrial fibrillation Single vessel coronary disease Mixed hyperlipidemia Essential hypertension Unspecified essential hypertension Anemia, unspecified type Cerebrovascular accident (CVA), unspecified mechanism (Multi) High risk medication use Former smoker Personal history of tobacco use, presenting hazards to health BMI 27.0-27.9,adult documented in this encounter [facility] Work Phone: Evaluation note* Diagnosis Xerosis cutis- Primary Other specified disease of sebaceous glands Diabetes 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, 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 ([facility]/HCC) Pain due to onychomycosis of toenails of both feet Right foot drop Other acquired deformity of ankle and foot documented in this encounter [facility] HealthcareEvaluation note* Diagnosis TIA (transient ischemic attack)- [...] health BMI 26.0-26.9,adult documented in this encounter [facility] Work Phone: Evaluation note* Diagnosis [...] electrocardiogram (ECG) (EKG) documented in this encounter [facility] Work Phone: Evaluation note* Diagnosis Xerosis cutis- Primary Other specified disease of sebaceous glands Diabetes 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, unspecified whether nursing home insulin use ([facility]) Pain due to onychomycosis of toenails of both feet Right foot drop Other acquired deformity of ankle and foot documented in this encounter [facility] HealthcareEvaluation note* Diagnosis Persistent atrial fibrillation (Multi)- Primary Atrial fibrillation High risk medication use documented in this encounter [facility] Work Phone: Evaluation note* Diagnosis High risk medication use Persistent atrial fibrillation (Multi) Atrial fibrillation documented in this encounter [facility] Work Phone: History general Narrative - Reported* Type Description Date Medical History NH Medical HistoryDMMedical HistoryHTNSurgical HistorycholecystectomySurgical Historyback surgerySurgical Historyelbow surgerySurgical Historycataracts, bilaterallySurgical HistoryT & AHospitalization Historysee aboveHospitalization HistoryMI1-2019 [facility] ABBYY Language Services Other History of Present illness Narrative* Is [...] advised to repeat lab work as ordered [facility] DO Work Phone: History of Present [...] 5. 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 Unfortunately he did not tolerate Eliquis and this was discontinued. Patient did not bring his medication with him. He reports he was in the hospital in [place] in [place] after a stroke. Hedoes not know if [...] 4. I to retrieve his record from [place] * 5. I advised the patient TO bring his medication with him and tried to write things down concerninghis memory does not appears to be good and he has no good social support system [facility] DO Work Phone: History of Present [...] has not been using prescribed or recommended ilkh-dvb-iosupuc cream with negative improvement. Patient has history [...] and negative PT pedal pulses NEURO: 5.07 [place] [employer]o monofilament test diminished to digits and forefoot bilaterally 125Hz tuning fork diminished to 1st MPJ bilaterally ORTHO: Positive pain on palpation to toenails of the left 1,2,3,4,5 toes and right 1,2,3,4,5 toes +4/5dorsiflexion right ankle ASSESSMENT 1. 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 Pain due to [...] . Marciano Hi DPM documented [facility] for [facility] (narrative)No reason for referral information availableUniversity Hospitals [facility] Work Phone: Summary Purpose Family History No [...] Records FoundLatest Code Status on File Code StatusDate ActivatedDate InactivatedCommentsFull Code11/28/2021 3:26 AM Advance Directive Response Recorded Date/ Time Advance Directives No April 10:50pm Chief Complaint SHAHRZAD EDGAR is being seen for a 6 month follow-up of.SHAHRZAD EDGAR is being seen for a 6 month follow-up of.SHAHRZAD EDGAR is being seen for OV Per MT. Reason for Referral SpecialtyDiagnoses / ProceduresReferred By ContactReferred To Contact Diagnoses Persistent atrial fibrillation (CMS/HCC) Procedures ECG 12 Lead Veronica Liz MD [address] [place] [address] 2, [place] [phone] Referral IDStatusReasonStart DateExpiration DateVisits RequestedVisits [id number] / ProceduresReferred By ContactReferred To ContactCardiology Diagnoses Single vessel coronary disease Essential hypertension Procedures Follow Up In Cardiology Veronica Liz MD [address] [facility] 2, [place] [phone] Veronica Liz MD [address] [facility] 2, [place] [phone] Referral IDStatusReasonStart DateExpiration DateVisits RequestedVisits [id number]/9/202311/8/091881BwdvsnyctBhylziuje / Procedures Referred By ContactReferred To ContactRadiology Diagnoses Cerebrovascular accident (CVA), unspecified mechanism (HCC) Procedures CT HEAD WO CONTRAST Alexander Grey, JOSS HOUSE KEEPER - CHIEF COUNSEL [address] [facility] [address] [place] [address] [place] [address] Referral IDStatusReasonStart DateExpiration DateVisits RequestedVisits [id number]/29/20229/29/202311 Additional Source Comments (unrecognized sect ion and [...] section and content) DATE CREATED AUTHOR 06/11/2018 [facility] DATE CREATED AUTHOR AUTHOR'S ORGANIZ ATION 12/17/2021 [facility] DATE CREATED AUTHOR AUTHOR'S ORGANIZ ATION 05/18/2022 [facility] DATE CREATED AUTHOR AUTHOR'S ORGANIZ ATION 06/06/2022 [facility] DATE CREATED AUTHOR AUTHOR'S ORGANIZ ATION 08/07/2022 [facility] DATE CREATED AUTHOR AUTHOR'S ORGANIZ ATION 11/05/2024 [facility] DATE CREATED AUTHOR AUTHOR'S ORGANIZ ATION 11/25/2024 [facility] DATE CREATED AUTHOR AUTHOR'S ORGANIZ ATION 12/23/2024 [facility] DATE CREATED AUTHOR AUTHOR'S ORGANIZ ATION 01/14/2025 [facility] REASON FOR VISIT (unrecogniz ed section and content) ReasonCommentsFollow-up6 monthSpecialtyDiagnoses / ProceduresReferred By Contact Referred To Contact Diagnoses Persistent atrial fibrillation (CMS/HCC) Procedures ECG 12 Lead Veronica Liz MD [address] [facility] [address], [address] [address] Referral IDStatusReasonStart DateExpiration DateVisits RequestedVisits [id number] monthsSpecialtyDiagnoses / ProceduresReferred By ContactReferred To Contact Cardiology Diagnoses Single vessel coronary disease Essential hypertension Procedures Follow Up In Cardiology Veronica Liz MD [address] [facility] [address], [address] [address] Veronica Liz MD [address] [facility] 2, [place] [address] [place] [address] Referral IDStatusReasonStart DateExpiration DateVisits RequestedVisits [id number]/9/202311/[id number] CareNon DM NailsSpecialtyDiagnoses / ProceduresReferred By ContactReferred To Contact Cardiology Diagnoses Persistent atrial fibrillation (Multi) Procedures Follow Up In Cardiology Veronica Liz MD [address] [facility] 2, [place] [address] [place], [place] [phone] Phone: tel: fax: Veronica Liz MD [address] [facility] 2, [place] [address] [place] [address] Phone: tel: fax: Referral IDStatusReasonStart DateExpiration DateVisits RequestedVisits [id number]/9/20245/687034YawbujMawbrxnvCpyrbsg CareNon dm nail careReasonCommentsFohenderson hospital – [facility] hospital discharge 04/06 TIA expressive aphasiaSpecialtyDiagnoses / ProceduresReferred By ContactReferred To Contact Diagnoses Persistent atrial fibrillation (Multi) Procedures ECG 12 Lead Veronica Liz MD [address] [facility] [address], [address] [address] Phone: tel: fax: Referral IDStatusReasonStart DateExpiration DateVisits RequestedVisits [id number]/29/20251/[id number]-ys2 months Persistent atrial fibrillation (MultiSpecialtyDiagnoses / ProceduresReferred By ContactReferred To ContactCardiology Diagnoses Single vessel coronary disease Procedures Follow Up In Cardiology Veronica Liz MD [address] [facility] 2, [place] [phone] Phone: tel: fax: Veronica Liz MD [address] [place] [address] 2, [place] [address] Phone: tel: fax: Referral IDStatusReasonStart DateExpiration DateVisits RequestedVisits [id number]/7/202411/7/375437YosrbxBohpjzrxZqectuo CareReason CommentsEKG visitSpecialtyDiagnoses / ProceduresReferred By ContactReferred To Contact Diagnoses High risk medication use Persistent atrial fibrillation (Multi) Procedures ECG 12 Lead Veronica Liz MD [address] [place] [address], [place] [address] Phone: tel: fax: Referral IDStatReasonStart DateExpiration DateVisits RequestedVisits [id number]/6/20258/[id number] ECG2 week EKG follow up for Persistent atrial fibrillationSpecialtyDiagnoses / Procedures Referred By ContactReferred To Contact Diagnoses High risk medication use Persistent atrial fibrillation (Multi) Procedures ECG 12 Lead Veronica Liz MD [address] [place] [address] 2, [place] [id number] Phone: tel: fax: Referral IDStatReasonStart DateExpiration DateVisits RequestedVisits [id number]/20/20258/ Ordered Prescriptions (unrec ognized section and content) PrescriptionSigDispensedRefillsStart DateEnd Date cefdinir (OMNICEF) 300 MG capsule Take 1 capsule by mouth every 12 hours for 8 doses 8 capsule / amiodarone (CORDARONE) 200 MG tablet Take 1 tablet by mouth daily 90 tablet / amiodarone (CORDARONE) 200 MG tablet Take 1 tablet by mouth 2 times daily for 9 doses 9 tablet / tamsulosin (FLOMAX) 0.4 MG capsule Take 1 capsule by mouth daily 30 capsule metoprolol tartrate (LOPRESSOR) 25 MG tablet Take 1 tablet by mouth 2 times daily 60 tablet lisinopril (PRINIVIL;ZESTRIL) 10 MG tablet Take 1 tablet by mouth daily 30 tablet Scheduled Active and Recently Administ ered Medications (unrecognized section and content) Medication Order// amiodarone (CORDARONE) 150 mg in dextrose 5 % 100 mL bolus (COMPLETED) 150 mg, IntraVENous, at 600 mL/hr, Administer over 10 Minutes, ONCE, On Thu12/02/21 at 1200, For 1 dose, Use in-line filter. * 1151 (New Bag - Provider: Huang Gurrola RN) * 1201 (Stopped - Provider: Huang Gurrola RN) amiodarone (CORDARONE) tablet 200 mg(Linked Group 1) 200 mg, Oral, 2 TIMES DAILY, 10 doses, First dose on Thu12/03/21 at 1100, Last dose on Thu12/07/21 at 2100 * 1123 (Given - Provider: Little Treadwell RN) * 2253 (Given - Provider: Jono Serrano RN) * 0847 (Given - Provider: Reese Schofield RN) * 2100 (Due) amiodarone (CORDARONE) tablet 200 mg(Linked Group 1) 200 mg, Oral, DAILY, First dose on Thu12/08/21 at 0900, Until Discontinued amoxicillin-clavulanate (AUGMENTIN) 875-125 MG per tablet 1 tablet (CANCELED) 1 tablet, Oral, EVERY 12 HOURS SCHEDULED (2 times per day), 14 doses, First dose on Thu11/28/21 at 2100, Last dose on Thu12/05/21 at 0900, Antimicrobial Indications: Other, Other Abx Indication: Left ear infection/possible mastoiditis * 0936 (Given - Provider: Huang Gurrola RN) atorvastatin (LIPITOR) tablet 80 mg 80 mg, Oral, NIGHTLY, First dose on Thu11/28/21 at 2100, Until Discontinued * 2053 (Given - Provider: Jono Serrano RN) * 2020 (Given - Provider: Jono Serrano RN) * 2099 (Due) cefdinir (OMNICEF) capsule 300 mg 300 mg, Oral, EVERY 12 HOURS SCHEDULED (2 times per day), 10 doses, First dose on 12/02/21 at 2100, Last dose on Thu12/07/21 at 0900, Antimicrobial Indications: Head and Neck Infection * 2053 (Given - Provider: Jono Serrano RN) * 0848 (Given - Provider: Little Treadwell RN) * 2020 (Given - Provider: Jono Serrano RN) * 0847 (Given - Provider: Reese Schofield RN) * 2099 (Due) enoxaparin Sodium (LOVENOX) injection 30 mg 30 mg, SubCUTAneous, 2 TIMES DAILY, First dose on Thu11/29/21 at 1030, Until Discontinued, Indication of Use: Prophylaxis-DVT/PE * 0942 (Given - Provider: Huang Gurrola RN) * 2053 (Given - Provider: Jono Serrano RN) * 0847 (Given - Provider: Little Treadwell RN) * 2020 (Given - Provider: Jono Serrano RN) * 0846 (Given - Provider: Reese Schofield RN) * 2099 (Due) insulin lispro (HUMALOG) injection vial 0-16 Units 0-16 Units, SubCUTAneous, 4 TIMES DAILY BEFORE MEALS & NIGHTLY, First dose (after last modification) on Thu12/01/21 at 1700, Until Discontinued, High Dose Corrective Algorithm Glucose: Dose: 70-199 No Insulin 200-249 4 Units 250-299 8 Units 300-349 12 Units Over 349 16 Units and notify physician * 0911 (Not Given - Provider: Eugenie Lynn RN - Reason: Order parameters not met - Comment: yr=329) * 1203 (Not Given - Provider: Huang Gurrola RN - Reason: Order parameters not met) * 1800 (Given - Provider: Huang Gurrola RN) * 0002 (Not Given - Provider: Jono Serrano RN - Reason: Order parameters not met) * 0835 (Not Given - Provider: Little Treadwell RN - Reason: Order parameters not met) * 1122 (Not Given - Provider: Little Treadwell RN - Reason: Order parameters not met) * 1631 (Not Given - Provider: Little Treadwell RN - Reason: Order parameters not met) * 2122 (Not Given - Provider: Jono Serrano RN - Reason: Order parameters not met) * 0717 (Not Given - Provider: Reese Schofield RN - Reason: Order parameters not met) * 1039 (Not Given - Provider: Reese Schofield RN - Reason: Order parameters not met - Comment: bs 110) * 1700 (Due) * 2100 (Due) lisinopril (PRINIVIL;ZESTRIL) tablet 10 mg 10 mg, Oral, DAILY, First dose (after last modification) on Thu12/03/21 at 0900, Until Discontinued * 0847 (Given - Provider: Little Treadwell RN) * 0846 (Given - Provider: Reese Schofield RN) lisinopril (PRINIVIL;ZESTRIL) tablet 5 mg (CANCELED) 5 mg, Oral, DAILY, First dose on Thu11/29/21 at 1445, Until Discontinued * 0936 (Given - Provider: Huang Gurrola RN) metoprolol tartrate (LOPRESSOR) tablet 25 mg 25 mg, Oral, 2 TIMES DAILY, First dose on Thu12/02/21 at 1430, Until Discontinued * 1409 (Not Given - Provider: Huang Gurrola RN - Reason: Other - Comment: start with evening dose) * 2053 (Given - Provider: Jono Serrano RN) * 0847 (Given - Provider: Little Treadwell RN) * 2021 (Given - Provider: Jono Serrano RN) * 0847 (Given - Provider: Reese Schofield RN) * 2100 (Due) ofloxacin (OCUFLOX) 0.3 % solution 5 drop (COMPLETED) 5 drop, Left Ear, DAILY, 5 doses, First dose (after last modification) on Thu11/30/21 at 0900, Lastdose on Thu12/04/21 at 0900 * 0943 (Given - Provider: Huang Gurrola RN) * 0848 (Given - Provider: Little Treadwell RN) * 0847 (Given - Provider: Reese Kanwal, RN) tamsulosin (FLOMAX) capsule 0.4 mg 0.4 mg, Oral, DAILY, First dose on Thu12/01/21 at 2100, Until Discontinued, Do not crush or break. * 0936 (Given - Provider: Huang Gurrola RN) * 0847 (Given - Provider: Little Treadwell, RN) * 0847 (Given - Provider: Reese Schofield, RN) Medication Order/ 0.9 % sodium chloride infusion (CANCELED) IntraVENous, at 75 mL/hr, CONTINUOUS, Starting on Kimmie 11/28/21 at 0745 * 0310 (New Bag - Provider: Charo Rudd RN) amiodarone (CORDARONE) 450 mg in dextrose 5 % 250 mL infusion (CANCELED) 1 mg/min (33.3333 mL/hr, rounded to 33.3 mL/hr), IntraVENous, CONTINUOUS, Starting on Thu12/02/21 at 1200, Until Thu12/02/21 at 1759, 33.3 ml/hr (1mg/min) x 6hrs. Use in-line filter. * 1203 (New Bag - Provider: Huang Gurrola RN) amiodarone (CORDARONE) 450 mg in dextrose 5 % 250 mL infusion (CANCELED) 0.5 mg/min (16.6667 mL/hr, rounded to 16.7 mL/hr), IntraVENous, CONTINUOUS, Starting on Thu12/02/21at 1800, Until Thu12/03/21 at 1041, 16.7 ml/hr (0.5mg/min) Use in-line filter. May prolong Qt interval. * 1802 (New Bag - Provider: Huang Gurrola RN) * 2350 (New Bag - Provider: Jono Serrano RN) * 1121 (Stopped - Provider: Little Treadwell, JUAN) Medication Order// acetaminophen (TYLENOL) tablet 650 mg 650 mg, Oral, EVERY 4 HOURS PRN, Starting on Kimmie 11/28/21 at 0317, Until Discontinued, Pain Mild (1-3), Fever, Fever >100.5 (38 C), Maximum dose of acetaminophen is 4000 mg from all sources in 24 hours. * 0638 (Given - Provider: Charo Rudd RN) * 0123 (Given - Provider: Jono Serrano, RN) * 0846 (Given - Provider: Little Treadwell, JUAN) * 2253 (Given - Provider: Jono Serrano, RN) * 0735 (Given - Provider: Reese Schofield, RN) * 1223 (Given - Provider: Reese Schofield, RN) dextrose 10 % infusion IntraVENous, at 100 mL/hr, CONTINUOUS PRN, if blood glucose remains LESS THAN 70 mg/dL after 2 dextrose 10% intravenous boluses or administration of glucagon, Starting on Kimmie 11/28/21 at 0752, If bloodglucose fails to stabilize after 2 dextrose 10% [...] dose as instructed per system. If blood glucoseremains LESS THAN 70 mg/dL after 2 intravenous boluses start dextrose 10% at 100 mL/hour and notifyprovider. glucagon (rDNA) injection 1 mg 1 mg, SubCUTAneous, PRN, Starting on Kimmie 11/28/21 at 0752, Until Discontinued, Low blood sugar, Bloodglucose LESS THAN 70 mg/dL and patient NOT ALERT or NPO and does not have IV access., After administration, attempt intravenous access and start dextrose 10% at 100 mL/hr. Repeat blood glucose in 15 minutes x 2 and notify provider. glucose chewable tablet 16 g 16 g (4 tablet), Oral, PRN, Starting on Kimmie 11/28/21 at 0752, Until Discontinued, Low blood sugar, Ifblood glucose is LESS THAN 70 mg/dL and [...] at 2035, Until Discontinued, Cramping, bladder spasms * 0941 (Given - Provider: Huang Gurrola RN) labetalol (NORMODYNE;TRANDATE) injection 10 mg 10 mg, IntraVENous, EVERY 4 HOURS PRN, Starting on Kimmie 11/28/21 at 1319, Until Discontinued, High Blood Pressure, SBP > 160, Hold for HR < 60 * 0638 (Given - Provider: Charo Rudd RN) loperamide (IMODIUM) capsule 2 mg 2 mg, Oral, 4 TIMES DAILY PRN, Starting on Thu12/02/21 at 1543, Until Discontinued, Diarrhea, Aftereach loose stool. metoprolol (LOPRESSOR) injection 5 mg 5 mg, IntraVENous, EVERY 6 HOURS PRN, 3 doses, Starting on Thu12/02/21 at 0301, Until Discontinued,High Blood Pressure, HR >140 * 0307 (Given - Provider: Charo Rudd RN) ondansetron (ZOFRAN) injection 4 mg(Linked Group 3) 4 mg, IntraVENous, EVERY 6 HOURS PRN, Starting on Kimmie 11/28/21 at 0317, Until Discontinued, Nausea, Vomiting, Administer if oral route cannot be used. ondansetron (ZOFRAN-ODT) disintegrating tablet 4 mg(Linked Group 3) 4 mg, Oral, EVERY 8 HOURS PRN, Starting on Kimmie 11/28/21 at 0317, Until Discontinued, Nausea, Vomiting opium-belladonna (B&O SUPPRETTES) 16.2-60 MG suppository 60 mg mg dosing is based on opium component, 60 mg, Rectal, EVERY 8 HOURS PRN, Starting on 12/02/21 [id number], Until Discontinued, Bladder Spasms, Note: Additive effect with hyoscyamine. sodium chloride flush 0.9 % injection 10 mL 10 mL, IntraVENous, PRN, Starting on Kimmie 11/28/21 at 0937, Until Discontinued, Line Care * 0847 (Given - Provider: Reese Schofield RN) Order Group 1: amiodarone (CORDARONE) tablet 200 mgJump to med 200 mg, Oral, 2 TIMES DAILY, 10 doses, First dose on 12/03/21 at 1100, Last dose on 12/07/21 at [...] dose as instructed per system. If blood glucos e remains LESS THAN 70 mg/dL after 2 [...] Care Teams (unrecognized sec tion and content) Team MemberRelationshipSpecialtyStart DateEnd Date Valente Tobin DO [address] [facility] [id number] PCP - General03/23/99Team MemberRelationshipSpecialtyStart DateEnd Date Unallocated, Godwin Ojeda MD [address] [place] [address] PCP - [facility]06/04/23Team MemberRelationshipSpecialtyStart DateEnd Date Unallocated, Godwin Ojeda MD [address] [place] [address] PCP - [facility]06/04/23Team MemberRelationshipSpecialtyStart DateEnd Date Veronica Liz MD [address] [facility] [address], [place] [address] [place] [address] [address] [facility] Attributed Provider03/23/23Team MemberRelationshipSpecialtyStart DateEnd Date Veronica Liz MD [address] [place] [address], [place] [place] [address] PCP - [facility] Attributed Provider03/23/23 Zachariah Ochoa MD [address] [facility] [place] [address] [facility] - [facility]04/20/24Team MemberRelationshipSpecialtyStart DateEnd Date Zachariah Ochoa MD [address] [place] [address] PCP - [facility]04/20/24Te MemberRelationshipSpecialtyStart DateEnd Date Zachariah Ochoa MD [address] [place] [address] PCP - [facility]04/20/24Te MemberRelationshipSpecialtyStart DateEnd Date Zachariah Ochoa MD [address] [place] [address] PCP - [facility]04/20/24 Team Status: Inactive Member Role Status Dates Gilles Herrera DO Attending Provider Active S tart: December 15, 2024 End: December 15, 2024 FOR RECORDS PERTAINING TO PATIENTS WHO ARE [...] BE BASED ON THE PRIMARY CLINICAL RECORDS. SCHEDit [facility]. provides no warranty or guarantee of the accuracy or completeness of information in this document.
--- OUTSIDE RECORDS SUMMARY | 2025-01-15 07:18 | XMS_ITS | Clinical Summary ---
Author Organization [facility] Address [address] 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 Name Role Phone Raphael Avila MD Primary Care Provider [phone] Allergies Active AllergyReactionsCriticalityNoted DateCommentsCoconut GryOllco21/09/2023 Medications MedicationSigDispense QuantityRefillsLast FilledStart DateEnd DateStatus aspirin 81 mg EC tablet Take 1 tablet (81 mg) by mouth once daily.Active lisinopril 10 mg tablet Take 0.5 tablets (5 mg) by mouth once daily.11/04/2023ctive nitroglycerin (Nitrostat) 0.[address] 1 tablet (0.4 mg) under the tongue.Active atorvastatin (Lipitor) 80 mg tablet Indications:Hyperlipidemia, unspecified hyperlipidemia typeTake 1 tablet (80 mg) by mouth once daily. 90 tablet tive sotalol (Betapace) 80 mg tablet Indications:Persistent atrial fibrillation (Multi)Take 0.5 tablets (40 mg) by mouth 3 times a day. 135 tablet /ctive Additional Information Patient taking differently:40 mg oral2 times daily, Reported on 11/23/2024 magnesium oxide (Mag-Ox) 400 mg (241.3 mg elemental) tablet Indications:Persistent atrial fibrillation (Multi)Take 1 tablet by mouth 2 times a day.ctive Active Problems ProblemNoted DateDiagnosed DateBMI 24.0-24.9, adult10/26/2024Prolonged QT qtgzehrq45/06/2025TIA (transient ischemic attack)04/20/2024Stenosis of right carotid zgdahp6601/28/2024Former rhmwga4207/30/20238414Ispacd84/09/2023Essential pehrtmspzmyo06/09/5735Nsiyjwerxhxfea69/09/2023ersistent atrial fibrillation 01/29/2023Single vessel coronary yoagkus0301/29/2023High risk medication use 01/29/20236666Lsoxav50/09/2023MI 26.0-26.9,adult01/29/2023 Encounters DateTypeDepartmentCare FnfuQiplokpkioe43/03/2025 2:00 PM EDTAncillary Procedure [address] [place] [address] Kristin Mcmanus LPN High risk medication use; Persistent atrial fibrillation (Multi) Discharge Disposition: Home11/23/20245181Yriwco96/22/[address] [facility] [address] [place] [address] Irena Lynn LPN Persistent atrial fibrillation (Multi)11/09/2024 2:00 PM EDTAncillary Procedure [address] [place] [address] Clyde Yoo MA Persistent atrial fibrillation (Multi) (Primary Dx); High risk medication use11/09/20242091Zmnfca01/06/2025 2:30 PM EDTOffice Visit [address] [address] Sherlyn Larson MD Persistent atrial fibrillation (Multi) (Primary Dx); Single vessel coronary disease; High risk medication use; Stenosis of right carotid artery; Mixed hyperlipidemia; Essential hypertension; Anemia, unspecified type; Cerebrovascular accident (CVA), unspecified mechanism (Multi); Former smoker; BMI 24.0-24.9, adult; Prolonged QT ziqxmhcl33/06/2025Travelfrom Last 3 Months Immunizations ImmunizationAdministration DatesNext DueInfluenza, Bfwnppaatcp07/01/2018Pfizer Purple Cap MNUI-TqP-830/,06/12/2020,05/21/2020 Family History Medical HistoryRelationNameCommentsNo Known ProblemsFatherNo Known Problems MotherRelationNameStatusCommentsFatherMother Social History Tobacco UseTypesPacks/DayYears UsedDateSmoking Tobacco: FormerCigarettesQuit: 2019Smokeless Tobacco: Never Tobacco Cessation:Counseling Given: Not Answered Alcohol UseStandard Drinks/WeekCommentsYes2 (1 standard drink = 0.6 oz pure alcohol)occasionallySex and Gender InformationValueDate RecordedSex Assigned at BirthNot on fileLegal BhlPudw24/26/2022 6:44 PM ESTGender IdentityNot on file Sexual OrientationNot on file Last Filed Vital Signs Vital SignReadingTime TakenCommentsBlood Qbokqatu769/5809 4:38 PM EDT Ioqwy2378 4:38 PM EDTTemperature--Respiratory Rate--Oxygen Saturation-- Inhaled Oxygen Concentration--Qfuhgu58.6 kg (182 lb)11/23/2024 4:38 PM EDTHeight 185.4 cm (6' 1 )11/23/2024 4:38 PM EDTBody Mass Index24.0109 4:38 PM EDT Plan of Treatment DateTypeDepartmentCare Team (Latest Contact Info)Cfcnfpqtjgs00/19/2026 3:00 PM EDTOffice Visit [facility] [address] [address] Sherlyn Larson MD [address] [facility] 2, [place] [address] [place] [address] Health MaintenanceDue DateLast DoneCommentsLipid Panel1946Medicare Annual Wellness Visit (AWV)1946Hepatitis C Xifntxwhv95/03/1965Pneumococcal Vaccine (1 of 2 - PCV)1965DTaP/Tdap/Td Vaccines (1 - Tdap)1968Zoster Vaccines (1 of 2)1996RSV High Risk: (Elderly (60+) or Population) (1 - 1-dose 75+ series)2Diabetes Stmohmywe13/10/2021Influenza Vaccine (#1)5003/23/2017COVID-19 Vaccine ( season)2024 01/15/2021, 06/12/2020, 0232NeffdiupoqkOxrkrrbxphxl68/27/2020Colorectal Cancer ScreeningDiscontinuedIrritable Bowel ZjbzpmwcGhksgavenlpc16/27/2020CT ColonographyDiscontinuedFIT-DNA (Cologuard)DiscontinuedFITDiscontinuedHIB VaccinesAged OutNo longer eligible based on patient's age to complete this topic HPV VaccinesAged OutNo longer eligible based on patient's age to complete this topicHepatitis A VaccinesAged OutNo longer eligible based on patient's age to complete this topicHepatitis B VaccinesAged OutNo longer eligible based on patient's age to complete this topicIPV VaccinesAged OutNo longer eligible based on patient's age to complete this topicMeningococcal VaccineAged OutNo longer eligible based on patient's age to complete this topicRotavirus VaccinesAged Out No longer eligible based on patient's age to complete this topicSigmoidoscopy Discontinued Procedures Procedure NamePriorityDate/TimeAssociated DiagnosisCommentsECG 12-LEADRoutine 11/23/2024 1:19 PM EDT High risk medication use Persistent atrial fibrillation (Multi) ECG 12-BADIBnimavs64/20/2025 1:08 PM EDT High risk medication use Persistent atrial fibrillation (Multi) ECG 12-XHGBWumdyfo25/06/2025 2:30 PM EDT High risk medication use Persistent atrial fibrillation (Multi) YPDROMJWUGW74/27/2020 from Last 3 Months or Most Recently Relevant to Health Maintenance Results * ECG 12 Lead (11/23/2024 1:19 PM EDT) Only the most recent of3 resultswithin the time period is included. Specimen (Source)Anatomical Location / LateralityCollection Method / Volume Collection TimeReceived Time Narrative CPACS - 11/23/2024 4:55 PM EDT Sinus rhythm with occasional PACs QTc interval is 501 ms Authorizing ProviderResult TypeResult StatusMourhaf Marsha LEWECJulieta ORDERABLES Edited Result - FinalPerforming OrganizationAddressCity/State/ZIP CodePhone Number CPACS * COLONOSCOPY (04/18/2019)Anatomical RegionLateralityModalityEndoscopy Narrative 04/18/2019 Ordered by an unspecified provider. Authorizing ProviderResult TypeResult StatusOnbase ConversionENDOSCOPY PROCEDURE ORDERABLESFinal Result from Last 3 Months or Most Recently Relevant to Health Maintenance Insurance * Guarantor: Davon Mcnair TypeRelation to PatientDate of BirthPhone Billing AddressPersonal/SlijifMbkj98/03/1946 [address] [place] [phone] * Guarantor: Davon Mcnair TypeRelation to PatientDate of BirthPhone Billing AddressPersonal/LfcuhpTcjl42/[birth year][address] [address] Care Teams Team MemberRelationshipSpecialtyStart DateEnd Rapheal Avila MD [address] [place] [address] PCP - GeneralFamily Medicine04/20/24
--- OUTSIDE RECORDS SUMMARY | 2025-01-15 07:18 | XMS_ITS | Patient Health Record ---
Author Organization [facility] in [place] Address [address] [place] [address] Care Team Providers Care Community Association Manager Name Role Phone Desiree Cuellar Primary Care Provider Zane Avila [phone] Allergies Allergen (clinical drug ingredient) Drug/Non Drug Allergy documented on EMR Reaction Allergy Type Onset Date Status coconut allergenic extract Coconut (Diagnostic) Unknown Drug Allergy Active Results Component Value Reference Range Notes CBC AUTO DIFF Reviewed date:12/15/2024 12:56:51 PM Interpretation: Performing Lab: Notes/Report: [facility] , White Blood Count 10.0 4.0-11.0 10 3/uL Red Blood Count3.334.70-6.10 10 6/uXLqrooalkcv35.114.0-18.0 g/yACpymfhzblt42.4 42.0-54.0 %Mean Corpuscular Eyfrnh554.380.0-94.0 fLMean Corpuscular Hemoglobin 33.325.9-34.0 pgMean Corpuscular HGB Conc33.229.9-35.2 g/dLRed Cell Distribution Width15.011.0-15.0 %Platelet Vtwxb930181-122 10 3/uLMean Platelet Gepsvf18.09.5- 13.5 fLNeutrophils Percent Auto75.643.0-75.0 %Lymphocytes Percent Auto13.220.5- 60.0 %Monocytes Percent Auto6.71.7-12.0 %Eosinophils Percent Auto3.90.9-7.0 % Basophils Percent Auto0.30.2-2.0 %Immature Granulocytes Pct Auto0.30.0-0.5 % Neutrophils Absolute Auto7.51.4-6.5 10 3/uLLymphocytes Absolute Auto1.31.2-3.8 10 3/uLMonocytes Absolute Auto0.70.3-0.8 10 3/uLEosinophils Absolute Auto0.40.0- 0.7 10 3/uLBasophils Absolute Auto0.00.0-0.1 10 3/uLImmature Granulocytes Abs Auto0.030.00-0.03 10 3/uLPerforming Lab:see noteML - [facility] LBUA RANDOM W or MICROSCOPIC Reviewed date:12/15/2024 12:56:51 PM Interpretation: Performing Lab: Notes/Report: [facility] ,Color UrineLT. YELLOWYELLOWClarity UrineCLEARCLEARSpecific [place] Urine1.020 1.005-1.025pH Urine6.05.0-9.0Protein UrineNEGATIVENEG/TRACE mg/dLGlucose Urine MA221GGUSXBVT mg/dLBilirubin UrineNEGATIVENEGATIVEKetones UrineNEGATIVENEGATIVE mg/dLBlood UrineNEGATIVENEGATIVENitrite UrineNEGATIVENEGATIVEUrobilinogen Urine 0.20.2-1.0 EU/dLLeukocyte Esterase UrineTRACENEGATIVEWBC Urine5-10NONE SEEN #/HPFRBC Urine0-20-2 #/HPFBacteria UrineTRACENONE SEEN #/HPFMucus UrineNONE SEEN NONE SEENSquamous Epithelial Cell UrineFEWNONE/RARE #/LPFCrystals Seen?None Seen None Seen #/HPFCast Seen?NONE SEENNONE SEEN #/LPFUrine Culture IndicatedS-[facility] Performing Lab:see noteML - [facility] LBECG 12 lead Reviewed date:12/16/2024 12:31:31 PM Interpretation: Performing Lab: Notes/Report: Source Facility: [facility]-[address] [place] [address] [place] [address] Electrocardiograph Report Signed Patient: SHAHRZAD MCNAIR MR#: [id number] : 1945 Acct:[id number] Age/Sex: 79 / M ADM Date: 12/15/24 Loc: ER Attending Dr: Ordering Physician: Hui Loredo M.D. 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 Measurements Intervals Zaleski Rate: 67 P: 90 FL: 188 QRS: 55 QRSD: 86 T: 51 QT: 468 QTc: 483 Interpretive Statements 1100 Sinus rhythm 1474 with frequent supraventricular premature complexes 8304 Long QTc interval 9150 abnormal ECG Compared to ECG 08/22/2024 02:28:25 No significant changes Electronically Signed On 12-16-2024 7:29:11 EDT by ANCA BUTLER M.D. Dictated By: ANCA BUTLER Signed By: 12/16/24 0729 DD/ 0840 TD/TT: Post Office Clerk:Urine Culture - [facility] Reviewed date:12/18/2024 09:16:04 PM Interpretation: Performing Lab: Notes/Report: [facility] ,[facility] No Growth 2 Days Urine Culture - [facility] Urine Culture - [facility] No Growth 2 Days Urine Culture - [facility] Urine Culture - FRTesting performed at [facility] No Growth 2 Days Urine Culture - [facility] Urine Culture - [id number] [place] [address] No Growth 2 Days Urine Culture - [facility] Performing Lab:see noteML - [facility] LBTroponin I High Sensitivity Reviewed date:12/15/2024 12:56:51 PM Interpretation: Performing Lab: Notes/Report: [facility] ,Troponin I High Sensitivity4.94.0-76.1 pg/mL DIAGNOSIS. NOTE: HIGH-SENSITIVITY TROPONIN ASSAY IS NOT INTENDED TO BE REFERENCE LIMIT (URL) OF TROPONIN, DEFINED THE 99TH CUT-OFF POINTS HAVE BEEN ESTABLISHED BASED ON THE FOURTH 99TH PERCENTILE = 76.2 PG/ML WITH OTHER DIAGNOSTIC AND CLINICAL INFORMATION. HAS BEEN CONFIRMED THE DECISION THRESHOLD FOR [place] UNIVERSAL DEFINITION OF MYOCARDIAL INFARCTION. THE UPPER USED IN ISOLATION BUT SHOULD BE INTERPRETED IN CONJUNCTION PERCENTILE OF cTnI DISTRIBUTION IN A REFERENCE POPULATION, Performing Lab:see noteML - [facility] LBPROF CHEM 8 (BAS METB) Reviewed date:12/15/2024 12:56:51 PM Interpretation: Performing Lab: Notes/Report: [facility] ,Otrxje298944-240 mmol/LPotassium4.33.5-5.1 mmol/BIjnvzhvo8869-419 mmol/LCarbon Zzizgje04.321.0-32.0 mmol/LAnion Gap14.2Xruypbv26771-778 mg/dLBlood Urea Rkxajqdq56.07.0-18.0 mg/dLCreatinine1.640.70-1.30 mg/dLEstimated GFR ( Wxulmdl67>=60 mL/min/1.73m 2Estimated GFR (Non- Ame41>=60 mL/min/1.73m 2 BUN Creatinine Ratio14.7Twvazsa7.78.5-10.1 mg/dLPerforming Lab:see noteML - [facility] LBXR elbow RT min 3V Reviewed date:08/22/2024 09:36:42 PM Interpretation: Performing Lab: Notes/Report: Source Facility: [place] [address] XRay Report Signed Patient: SHAHRZAD MCNAIR MR#: [id number] : 1945 Acct:[id number] Age/Sex: 78 / M ADM Date: 08/22/24 Loc: ER Attending Dr: Ordering Physician: Chevy Wood Date of Service: 08/22/24 Procedure(s): XR elbow RT min 3V Accession Number(s): [id number] cc: Zachariah Serna M.D. [place] [address] Patient Name: SHAHRZAD MCNAIR MRN: [id number] date: 1945 Sex: M Assigned Patient Location: ED.MAIN Current Patient Location: Accession/Order Number: [id number] Exam Date: 08/22/2024 08:07 Report Date: 08/22/2024 [...] Fuentes M.D. 08/22/2024 8:08 AM Dictation Location: [place] [address] Electronically authenticated by: [id number] Y Date: 08/22/2024 08:08 Dictated By: Robbie Fuentes M.D. Signed By: 08/22/24810 DD/ 7 TD/TT: Post Office Clerk:XR hip RT 2V w/ pelvis Reviewed date:08/22/2024 09:36:42 PM Interpretation: Performing Lab: Notes/Report: Source Facility: [place] [address] [place] [address] XRay Report Signed Patient: SHAHRZAD MCNAIR MR#: [id number] : 1945 Acct:[id number] Age/Sex: 78 / M ADM Date: 08/22/24 Loc: ER Attending Dr: Ordering Physician: Chevy Wood Date of Service: 08/22/24 Procedure(s): XR hip RT 2V w/ pelvis Accession Number(s): [id number] cc: Chevy Wood; Zachariah Avila M.D. [place] [id number] Patient Name: SHAHRZAD MCNAIR MRN: [id number] date: 1945 Sex: M Assigned Patient Location: ED.MAIN Current Patient Location: Accession/Order Number: [id number] Exam Date: 08/22/2024 08:06 Report Date: 08/22/2024 [...] Fuentes M.D. 08/22/2024 8:07 AM Dictation Location: [place] [address] Electronically authenticated by: [id number] Y Date: 08/22/2024 08:07 Dictated By: Robbie Fuentes M.D. Signed By: 08/22/24 0810 DD/ 0807 TD/TT: Post Office Clerk:PROF ANDREEA Escobar ([facility]) Reviewed date:08/22/2024 09:36:42 PM Interpretation: Performing Lab: Notes/Report: [facility] ,Dzfhru817526-774 mmol/LPotassium4.03.5-5.1 mmol/XSqtoyugg48620-097 mmol/LCarbon Dvcilvq30.921.0-32.0 mmol/LAnion Gap11.6Xgfizeq11912-538 mg/dLBlood Urea Jlwazfsq73.07.0-18.0 mg/dLCreatinine1.480.70-1.30 mg/dLEstimated GFR ( Yaabcap08>=60 mL/min/1.73m 2Estimated GFR (Non- Ame46>=60 mL/min/1.73m 2 BUN Creatinine Ratio10.7Bfpcpch3.98.5-10.1 mg/dLPerforming Lab:see noteML - [facility] LBCBC AUTO DIFF Reviewed date:08/22/2024 09:36:42 PM Interpretation: Performing Lab: Notes/Report: [facility] ,White Blood Count7.24.0-11.0 10 3/uLRed Blood Count3.414.70-6.10 10 6/uL Wpebwvxvdq55.714.0-18.0 g/cEBmqrgybuek60.142.0-54.0 %Mean Corpuscular Volume 100.080.0-94.0 fLMean Corpuscular Nfafjhelzj48.325.9-34.0 pgMean Corpuscular HGB Conc34.329.9-35.2 g/dLRed Cell Distribution Width15.711.0-15.0 %Platelet Count 764708-273 10 3/uLMean Platelet Volume9.99.5-13.5 fLNeutrophils Percent Auto61.9 43.0-75.0 %Lymphocytes Percent Auto24.120.5-60.0 %Monocytes Percent Auto8.11.7- 12.0 %Eosinophils Percent Auto4.70.9-7.0 %Basophils Percent Auto0.40.2-2.0 % Immature Granulocytes Pct Auto0.80.0-0.5 %Neutrophils Absolute Auto4.41.4-6.5 10 3/uLLymphocytes Absolute Auto1.71.2-3.8 10 3/uLMonocytes Absolute Auto0.60.3-0.8 10 3/uLEosinophils Absolute Auto0.30.0-0.7 10 3/uLBasophils Absolute Auto0.00.0- 0.1 10 3/uLImmature Granulocytes Abs Auto0.060.00-0.03 10 3/uLPerforming Lab:see noteML - [facility] LBCA echo doppler complete Reviewed date:04/10/2024 02:49:18 PM Interpretation: Performing Lab: Notes/Report: Source Facility: [facility]-[address], [place] [address] Cardiology Report Signed Patient: SHAHRZAD MCNAIR MR#: [id number] : 1945 Acct:[id number] Age/Sex: 78 / M ADM Date: 04/05/24 Loc: MS 213-[address]: Eulalio Valencia D.O. Ordering Physician: Eulalio Valencia D.O. Date of Service: 04/05/24 Procedure(s): CA echo doppler complete Accession Number(s): [id number] cc: Zachariah Avila M.D.; Eulalio Valencia D.O. Patient Name: SHAHRZAD MCNAIR MR#: [id number] : 1945 Exam Date: 04/05/2024 Ordering Doctor: [...] ANCA BUTLER Signed By: 04/09/24 1326 DD/ 132 TD/TT: Post Office Clerk:XR chest 1V Reviewed date:12/15/2024 12:56:51 PM Interpretation: Performing Lab: Notes/Report: Source Facility: [address] [address] XRay Report Signed Patient: SHAHRZAD MCNAIR MR#: [id number] : 1945 Acct:[id number] Age/Sex: 79 / M ADM Date: Loc: ER Attending Dr: Ordering Physician: Hui Loredo M.D. Date of Service: 12/15/24 Procedure(s): XR chest 1V Accession Number(s): [id number] cc: Zachariah Avila M.D.; Hui Loredo M.D. [place] [address] Patient Name: SHAHRZAD MCNAIR MRN: [id number] date: 1945 Sex: M Assigned Patient Location: ER Current Patient Location: ER Accession/Order Number: [id number] Exam Date: 12/15/2024 09:00 Report Date: 12/15/2024 [...] NO ACUTE PROCESS. Impression dictated by: Wilson Triniadd Jr., D.O. 12/15/2024 9:14 AM Dictation Location: [place] [address] Electronically authenticated by: [id number] Y Date: 12/15/2024 09:14 Dictated By: Wilson Trinidad M.D. Signed By: 12/15/24916 DD/ 3 TD/TT: Post Office Clerk:CT head/brain wo con Reviewed date:12/15/2024 12:56:51 PM Interpretation: Performing Lab: Notes/Report: Source Facility: [place] [address] CT Scan Report Signed Patient: SHAHRZAD MCNAIR MR#: [id number] : 1945 Acct:[id number] Age/Sex: 79 / M ADM Date: 12/15/24 Loc: ER Attending Dr: Ordering Physician: Hui Loredo M.D. Date of Service: 12/15/24 Procedure(s): CT head/brain wo con Accession Number(s): [id number] cc: Zachariah Avila M.D. [place] [address] Patient Name: SHAHRZAD MCNAIR MRN: [id number] date: 1945 Sex: M Assigned Patient Location: ER Current Patient Location: ED.MAIN Accession/Order Number: [id number] Exam Date: 12/15/2024 09:00 Report Date: 12/15/2024 09:23 At the request of: HUI LOREDO MD Procedure: CT head/brain wo con CT BRAIN WITHOUT CONTRAST: CLINICAL HISTORY: weak COMPARISON: None TECHNIQUE: Contiguous axial unenhanced images were obtained through the brain. This CT exam was performed using one or more following dose reduction techniques: Automated exposure control, adjustment of the mA and/or kV according to patient size, or use of iterative reconstruction technique. FINDINGS: There is no evidence of midline shift, intra or extra-axial fluid collection, hemorrhage or CT evidence of stroke. Remote infarcts bilaterally with associated encephalomalacia grossly unchanged from the prior study. Cortical atrophy with chronic microvascular ischemic changes. Posterior fossa appears unremarkable. Visualized intraorbital contents demonstrate no acute findings. Visualized paranasal sinuses are clear. The surrounding soft tissues are normal. CT/CT head/brain wo con IMPRESSION: NO ACUTE INTRACRANIAL ABNORMALITY. Impression dictated by: Lesa Amaya Jr.OMook 12/15/2024 9:23 AM Dictation Location: [place] [address] Electronically authenticated by: [id number] Y Date: 12/15/2024 09:23 Dictated By: Wilson Trinidad M.D. 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 Measurements Intervals Zaleski Rate: 57 P: 50 FL: 192 QRS: 47 QRSD: 84 T: 51 QT: 526 QTc: 520 Interpretive Statements 1100 Sinus rhythm 8304 Long QTc interval 9150 abnormal ECG Compared to ECG 04/05/2024 07:36:09 No significant changes Electronically Signed On 08-22-2024 7:09:37 EDT by ANCA BUTLER M.D. Dictated By: ANCA BUTLER Signed By: 08/22/24 0710 DD/ 0228 TD/TT: Post Office Clerk: Reason For Referral No Information Medications Medication SIG (Take, Route, Frequency, Duration) Notes Start Date End Date Status Magnesium Oxide 400 MG 1 tablet with food Orally bid ActiveAspirin Adult Low Dose 81 MG1 tablet Orally Once a dayActiveLisinopril 10 MGTAKE 1/2 TABLET BY MOUTH ONCE EVERYDAY; Duration: 90ActiveNitroglycerinActive Sotalol HCl 80 MGTAKE 1 TABLET BY MOUTH EVERY 12 HOURS FOR 30 DAYS; Duration: 90 ActiveAtorvastatin Calcium 80 MG1 tablet Orally Once a day4Active Social History Tobacco Use: Social History Observation Description Date Details (start date - stop date) Former Smoker 03/23/1963 - 03/23/2019 Tobacco Control (Standard) Question Answer Notes Tobacco use: Former smoker When did you start smoking?03/23/1963When did you stop smoking?03/23/2019How long has it been since you last smoked?1-5 yearsAdditional Findings: Tobacco psl-jgbeYx-wquo heavy cigarette smoker (40+/day)AUDIT-C (Standard) Question Answer Notes Did you have a drink containing alcohol in the p ast year? Yes How often did you have six or more drinks on one occasion in the past year?Never (0 point)How many drinks did you have on a typical day when you were drinking in the past year?1 or 2 drinks (0 point)How often did you have a drink containing alcohol in the past year?Monthly or less (1 point)Points1 InterpretationNegative Problems Problem Type SNOMED Code ICD Code Onset Dates Problem Status W/U Status Risk Notes Problem Atrial fibrillation (12058566) Atrial fib rillation (I48.91) ActiveconfirmedProblemHyperlipidaemia (39260575)Hyperlipemia (E78.5)Active confirmedProblemHypertension (54361593)Hypertension (I10)ActiveconfirmedProblem COPD - Chronic obstructive pulmonary disease (13614305)COPD (chronic obstructive pulmonary disease) (J44.9)ActiveconfirmedProblemStroke (963838926)Stroke (I63.9)ActiveconfirmedProblemMyocardial infarction (97421424)[place] (myocardial infarction) (I21.3)ActiveconfirmedProblemExpressive aphasia (495996096) Expressive aphasia (R47.01)ActiveconfirmedProblemAltered mental status (465988663)Altered mental status (R41.82)ActiveconfirmedProblemMetabolic encephalopathy (56785505)Acute metabolic encephalopathy (G93.41)Activeconfirmed ProblemEssential hypertension (48562340)BP (high blood pressure) (I10)Active confirmed Vital Signs Blood pressure diastolic 62 mm Hg 12/23/2024 Jqfdpg99 in12/23/2024lood pressure cdyywenp497 mm Hg12/23/20240979Xoairc933 lbs 12/23/2024BMI23.75 kg/m212/23/2024 Encounters Encounter Location Date Provider Diagnosis [facility] [address] [place] [address] 04/06/2024 Desiree Cuellar [facility] [place] [address] 09/27/2024Pamela CramerHypertension C40AyuepkfProwers Medical Center[address] [place] [address]/Pamela [facility] [place] [address]/Pamela [facility] [place] [address]/[facility] [place] [address]/Pajovona [facility] [address] [place] [address]/Pamela CramerHypertension N[address] [place], [place] [address] [place] [address] 07/12/2024Pamela CramerHypertension S37JwecaraProwers Medical Center[address] [place] [address]/05/2024Pamela CramerUTI (urinary tract infection) N39.0 Assessments Encounter Date Diagnosis (ICD Code) Assessment Notes Treatment Notes Treatment Clinical Notes Section Notes 04/11/2024 Hypertension (ICD-10 - I10) BP looks good fu cardiology 07/12/2024Hypertension (ICD-10 - I10) continue meds fu cardiology as scheduled BP good today 12/23/2024UTI (urinary tract infection) (ICD-10 - N39.0) defers repeat UA CS denies sx of enlarged prostate continue monitor, fu prn 09/27/2024Hypertension (ICD-10 - I10) Plan Of Treatment Pending Test Test Name Order Date HEMOGLOBIN A1C (GLYCO) 09/27/2024 INSULIN, TOTAL 09/27/2024 LIPID PANEL (CHOL/TRIG/HDL/LDL) 09/28/19 CBC WITH DIFF 04/11/2024 URIC ACID 09/27/2024 PSA, TOTAL 04/11/2024 Holter Monitor 24 Hour 10/21/2023 THYROID PANEL (T4/TSH/FREE T3) PSA, SCREENING 09/27/2024 CMP (COMP MET WILCOX) w/eGFR CKD-EPI 2024 CMP (COMP MET WILCOX) w/eGFR CKD-EPI 2024 CBC WITH DIFF 09/27/2024 Next Appt Details Provider Name:Desiree chandler, 01/16/2025 10:30:00 AM, [address] [place], [address], Insurance Providers Payer Name Payer Address Payer Phone Subscriber Number Group Number Insured Name Patient Relationship to Insured Coverage Start Date Coverage End Date [place] [address] [place] [address] [id number] Julia Mcnair - patient is the insured Medical (General) History Medical History History ICD Code Hypertension I10 COPD (chronic obstructive pulmonary dise ase) J44.9 Atrial fibrillation I48.91 Stroke I63.9 [place] (myocardial infarction) I21.3 Surgical History Surgery Date(Month/Year) Tonsillectomy Cataract- bilateralLumbar surgery- disc m0Zjyzm and Pin in Right Elbow CHOLECYSTECTOMYHospitalization History Reason Date(Month/Year) Encephalopathy 09/2023
[2025-01-15 07:27] LABS: Hematocrit 30.4 % (42.0-54.0); Hemoglobin 10.1 g/dL (14.0-18.0); Mean Corpuscular HGB Conc 33.2 g/dL (29.9-35.2); Mean Corpuscular Hemoglobin 33.0 pg (25.9-34.0); Mean Corpuscular Volume 99.3 fL (80.0-94.0); Platelet Count 247 10^3/uL (150-450); Red Blood Count 3.06 10^6/uL (4.70-6.10); White Blood Count 8.9 10^3/uL (4.0-11.0)
[2025-01-15] MEDS: HYDROMORPHONE HCL 1 MG/ML CARTRIDGE IV (07:32)
[2025-01-15 07:55] LABS: Anion Gap 15.8; Blood Urea Nitrogen 19.0 mg/dL (7.0-18.0); Calcium 8.6 mg/dL (8.5-10.1); Carbon Dioxide 26.4 mmol/L (21.0-32.0); Chloride 100 mmol/L (98-107); Estimated GFR (African America 54 (>=60 mL/min/1.73m^2); Estimated GFR (Non-African Ame 45 (>=60 mL/min/1.73m^2); Glucose 134 mg/dL (74-106); Potassium 4.2 mmol/L (3.5-5.1); Sodium 138 mmol/L (136-145)
--- NOTE | 2025-01-15 09:15 | ED.GENADUL1 ---
HPI HPI - General Adult General Chief complaint: Fall Stated complaint: DIFFICULTY BREATHING Time Seen by Provider: 01/15/25 07:14 Source: patient Mode of arrival: ambulance History of Present Illness HPI narrative: Patient is a 79-year-old male presenting to the emergency department for evaluation of left-sided rib pain. Patient states he fell at his house 4 days ago and has had pain in his left rib ever since. He was seen at [facility] immediately after the fall, and was told there were no injuries and was discharged home. Since then, he said persistent pain in left side of his rib, worse with coughing and taking a deep breath. He has been taking Tylenol home, however this has not helped his pain. He denies any fevers or chills. No abdominal pain, nausea, or vomiting. He has no active chest pain or shortness of breath. Related Data Home Medications ?Medication ?Instructions ?Recorded ?Confirmed atorvastatin 80 mg tablet 80 mg PO DAILY 03/02/23 01/15/25 nitroglycerin 0.4 mg sublingual 0.4 mg sublingual Q5M PRN chest 08/22/24 12/15/24 tablet pain Previous Rx's ?Medication ?Instructions ?Recorded aspirin 81 mg tablet,delayed 81 mg PO QD #30 tabs 10/05/23 release lisinopril 10 mg tablet 5 mg (1/2 x 10 mg) PO DAILY #30 10/05/23 tabs sotalol 80 mg tablet 80 mg PO BID #60 tabs 10/05/23 Allergies Allergy/AdvReac Type Severity Reaction Status Date / Time coconut Allergy Intermediate Vomiting Verified 12/15/24 08:35 Opioid HPI Opioid Management Most Recent Opioid Data: Last Pain Scale 8 12/15/24, 12:25 Last ORT Total Score 0 04/05/24, 11:18 Last ORT Risk Category Low Risk 04/05/24, 11:18 Ur Phencyclidine Scrn, (NEGATIVE) Negative 04/05/24, 23:51 Review of Systems ROS Status of ROS 10 or more systems reviewed and unremarkable except as noted in history and below [facility] Medical History (Updated 01/15/25 @ 09:07 by Baldomero Bo DO) COPD (chronic obstructive pulmonary disease) ?J44.9 - Chronic obstructive pulmonary disease, unspecified (ICD-10) History of stroke ?Z86.73 - Personal history of transient ischemic attack (TIA), and cerebral infarction without residual deficits (ICD-10) Acute metabolic encephalopathy ?G93.41 - Metabolic encephalopathy (ICD-10) Generalized weakness ?R53.1 - Weakness (ICD-10) Foot drop, bilateral ?M21.371 - Foot drop, right foot (ICD-10) ?M21.372 - Foot drop, left foot (ICD-10) Hyperlipemia ?E78.5 - Hyperlipidemia, unspecified (ICD-10) Past heart attack ?I25.2 - Old myocardial infarction (ICD-10) Hypertension ?I10 - Essential (primary) hypertension (ICD-10) CVA (cerebral vascular accident) ?I63.9 - Cerebral infarction, unspecified (ICD-10) Surgical History Hx of cholecystectomy ?Z90.49 - Acquired absence of other specified parts of digestive tract (ICD-10) History of back surgery ?Z98.890 - Other specified postprocedural states (ICD-10) Family History Father Family history of COPD (chronic obstructive pulmonary disease) Mother Family history of cancer Alzheimer dementia Social History Within the past year, how often did you have a drink containing alcohol: 2-4 times a month Within the past year, how many standard drinks containing alcohol did you have on a typical day: 1 or 2 Within the past year, how often did you have six or more drinks on one occasion: never Total score: 0 Score interpretation: A score less than 4 is consistent with normal alcohol consumption. Smoking status: Former smoker Second hand tobacco smoke exposure: No Non-prescribed substance use: denies use Previous occupational history: retired Known occupational exposures/hazards: No Highest level of school completed/degree received: GED or equivalent Are you now , , , , never or living with a partner: living with partner In a typical week, how many times do you talk on the telephone with family, friends, or neighbors: 3 or more times per week How often do you get together with friends or relatives: 3 or more times per week How often do you attend judaism or oriental orthodox services: never Do you belong to any clubs or organizations such as judaism groups unions, fraternal or athletic groups, or school groups: no Total score: 2 Score interpretation: A score of greater than or equal to 2 indicates the lowest level of social isolation. Little interest or pleasure in doing things: not at all Feeling down, depressed, or hopeless: not at all Feel stressed/tense/nervous/anxious/difficulty sleeping: not at all Do you think of yourself as: straight/heterosexual Gender Identity: male Exam Narrative Exam Narrative: CONSTITUTIONAL: Patient overall appears unwell, but nontoxic, answering questions and following commands appropriately, speaking in full sentences SKIN: Was warm and dry. EYES: Sclerae white. EARS, NOSE, THROAT: Moist oral mucosa. RESPIRATORY: Clear to auscultation bilaterally, no wheezes, crackles, or stridor, no use of accessory muscles CARDIOVASCULAR: Normal rate and regular rhythm. There is no S3, S4, murmur, rub. GASTROINTESTINAL: Abdomen is soft, nontender, nondistended. MUSCULOSKELETAL: There is reproducible tenderness to palpation over the left anterior rib ~6 without subcutaneous emphysema. Normal, symmetric chest wall expansion. There is no overlying ecchymosis or lacerations. NEUROLOGIC: Patient is awake and alert. Facies were symmetrical. Constitutional Vital Signs, click to edit/add: Last Vital Signs Temp 98.4 F 01/15/25 06:57 Pulse 55 L 01/15/25 09:00 Resp 23 H 01/15/25 09:00 BP 130/73 01/15/25 09:00 Pulse Ox 94 L 01/15/25 09:00 O2 Del Method Room Air 01/15/25 06:57 Course Vital Signs Vital signs: Vital Signs Temperature 98.4 F 01/15/25 06:57 Pulse Rate 65 01/15/25 06:57 Respiratory Rate 20 01/15/25 06:57 Blood Pressure 170/102 H 01/15/25 06:57 Pulse Oximetry 99 01/15/25 06:57 Oxygen Delivery Method Room Air 01/15/25 06:57 Temperature 98.4 F 01/15/25 06:57 Pulse Rate 55 L 01/15/25 09:00 Respiratory Rate 23 H 01/15/25 09:00 Blood Pressure 130/73 01/15/25 09:00 Pulse Oximetry 94 L 01/15/25 09:00 Oxygen Delivery Method Room Air 01/15/25 06:57 Medical Decision Making [facility] Narrative Medical decision making narrative: Patient is a 79-year-old male presenting to the emergency department for evaluation of left-sided rib pain after mechanical fall 4 days ago. Vital signs on arrival are within normal limits. He is afebrile and hemodynamically stable. He is saturating 94% on room air. Examination is notable for reproducible tenderness to palpation over the left anterior rib ~6. There are clear breath sounds bilaterally. Differential diagnose includes rib fracture, rib contusion, developing pneumonia, ACS, pneumothorax, pulmonary contusion, or other electrolyte/metabolic derangement. IV was established and laboratory studies were obtained. Rib/chest x-ray was ordered. He was treated with IV Dilaudid for pain. 12 Lead EKG: Normal sinus rhythm at a rate of 74. Normal axis. No ST segment elevations. QRS, VA, and QTc interval within normal limits. Final impression: normal sinus rhythm without evidence of acute myocardial ischemia Laboratory studies were unremarkable. No significant electrolyte or metabolic derangement. No evidence of acute kidney injury. No significant anemia, leukocytosis, or thrombocytopenia. Troponin nonelevated. X-rays of the left ribs/chest independently reviewed and interpreted by myself and radiology demonstrated anterior left seventh rib fracture. Developing nodular consolidation in the left suprahilar/left paramediastinal region which may represent infiltrate. On reevaluation, the patient states his pain has improved. The patient has a weak cough, and is splinting to take a deep breath. This is likely causing pneumonia to develop. I do believe he warrants admission to the hospital for treatment of pneumonia and further pain control. I empirically treated him with IV ceftriaxone and IV doxycycline. He was given an incentive spirometer and instructed on its proper use. At the time of admission, patient remains stable on 2 L nasal cannula saturating 96%. I discussed the patient with hospitalist, Dr. Aparicio, who accepted the patient to his service. FINAL IMPRESSION: #Acute nondisplaced left-sided seventh rib fracture #Acute community-acquired pneumonia DISPOSITION: Admitted to the hospital CONDITION: Fair Medical Records Medical records reviewed: Yes I reviewed the patient's medical records Lab Data Lab results reviewed: Yes I reviewed the patient's lab results Labs: Lab Results 01/15/25 Range/Units 07:22 WBC 8.9 (4.0-11.0) 10^3/uL RBC 3.06 L (4.70-6.10) 10^6/uL Hgb 10.1 L (14.0-18.0) g/dL Hct 30.4 L (42.0-54.0) % MCV 99.3 H (80.0-94.0) fL MCH 33.0 (25.9-34.0) pg MCHC 33.2 (29.9-35.2) g/dL RDW 15.7 H (11.0-15.0) % Plt Count 247 (150-450) 10^3/uL MPV 9.2 L (9.5-13.5) fL Sodium 138 (136-145) mmol/L Potassium 4.2 (3.5-5.1) mmol/L Chloride 100 (98-107) mmol/L Carbon Dioxide 26.4 (21.0-32.0) mmol/L Anion Gap 15.8 BUN 19.0 H (7.0-18.0) mg/dL Creatinine 1.51 H (0.70-1.30) mg/dL Est GFR ( Amer) 54 L (>=60 mL/min/1.73m^2) Est GFR (Non-Af Amer) 45 L (>=60 mL/min/1.73m^2) BUN/Creatinine Ratio 12.6 Glucose 134 H (74-106) mg/dL Calcium 8.6 (8.5-10.1) mg/dL Troponin I High Sens 6.7 (4.0-76.1) pg/mL Imaging Data Chest x-ray: Attestation: I personally reviewed and interpreted this imaging study as follows: Radiologist's impression: ITS Impressions Ribs X-Ray 01/15/25 07:14 IMPRESSION: Anterior left seventh rib fracture. Developing nodular consolidation in the left suprahilar/left paramediastinal region. May represent infiltrate. Malignancy should be excluded. CT chest without contrast may be useful in further assess. Impression dictated by: Gilles Francois M.D. 01/15/2025 8:56 AM Dictation Location: [place] [address] Electronically authenticated by: [id number] Y Date: 01/15/2025 08:56 ECG Data Attestation: I personally reviewed and interpreted this ECG as follows: Discharge Plan Discharge Chief Complaint: Fall Clinical Impression: Fracture of rib Patient Disposition: Admitted As Inpatient Time of Disposition Decision: 08:57 Condition: Fair
[2025-01-15] MEDS: DOXYCYCLINE HYCLATE 100 MG in 0.9 % SODIUM CHLORIDE 100 ML IV ×2 (09:54→21:28)
--- NOTE | 2025-01-15 10:09 | PM.IMHP1 ---
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 On assessment at bedside on the regular nursing floor patient resting comfortably in bed, endorses prior documented history of fall and subsequent rib pain, denies any fevers or chills at this time, no productive cough and has had persistent dry cough longstanding. States has been off Eliquis after discussion with diesel truck driver Dr. Marmolejo as outpatient following stroke, confirmed with outside records has had subsequent follow-up with cardiology Dr. Larson with no mention of reinitiation of anticoagulation. 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 Review of Systems ROS Status of ROS 10 or more systems reviewed and unremarkable except as noted in history and below [facility] Medical History (Updated 01/15/25 @ 13:43 by NARGIS BOJORQUEZ MD) COPD (chronic obstructive pulmonary disease) ?J44.9 - Chronic obstructive pulmonary disease, unspecified (ICD-10) History of stroke ?Z86.73 - Personal history of transient ischemic attack (TIA), and cerebral infarction without residual deficits (ICD-10) Acute metabolic encephalopathy ?G93.41 - Metabolic encephalopathy (ICD-10) Generalized weakness ?R53.1 - Weakness (ICD-10) Foot drop, bilateral ?M21.371 - Foot drop, right foot (ICD-10) ?M21.372 - Foot drop, left foot (ICD-10) Hyperlipemia ?E78.5 - Hyperlipidemia, unspecified (ICD-10) Past heart attack ?I25.2 - Old myocardial infarction (ICD-10) Hypertension ?I10 - Essential (primary) hypertension (ICD-10) CVA (cerebral vascular accident) ?I63.9 - Cerebral infarction, unspecified (ICD-10) Surgical History Hx of cholecystectomy ?Z90.49 - Acquired absence of other specified parts of digestive tract (ICD-10) History of back surgery ?Z98.890 - Other specified postprocedural states (ICD-10) Family History Father Family history of COPD (chronic obstructive pulmonary disease) Mother Family history of cancer Alzheimer dementia Social History Within the past year, how often did you have a drink containing alcohol: 2-4 times a month Within the past year, how many standard drinks containing alcohol did you have on a typical day: 1 or 2 Within the past year, how often did you have six or more drinks on one occasion: never Total score: 0 Score interpretation: A score less than 4 is consistent with normal alcohol consumption. Smoking status: Former smoker Second hand tobacco smoke exposure: No Non-prescribed substance use: denies use Previous occupational history: retired Known occupational exposures/hazards: No Highest level of school completed/degree received: GED or equivalent Are you now , , , , never or living with a partner: living with partner In a typical week, how many times do you talk on the telephone with family, friends, or neighbors: 3 or more times per week How often do you get together with friends or relatives: 3 or more times per week How often do you attend sikh or confucianism services: never Do you belong to any clubs or organizations such as sikh groups unions, fraternal or athletic groups, or school groups: no Total score: 2 Score interpretation: A score of greater than or equal to 2 indicates the lowest level of social isolation. Little interest or pleasure in doing things: not at all Feeling down, depressed, or hopeless: not at all Feel stressed/tense/nervous/anxious/difficulty sleeping: not at all Do you think of yourself as: straight/heterosexual Gender Identity: male Meds Home Medications and Allergies Home Medications ?Medication ?Instructions ?Recorded ?Confirmed ?Type atorvastatin 80 mg tablet 80 mg PO DAILY 03/02/23 01/15/25 History aspirin 81 mg tablet,delayed 81 mg PO QD #30 tabs 10/05/23 01/15/25 Rx release lisinopril 10 mg tablet 5 mg (1/2 x 10 mg) PO DAILY #30 10/05/23 01/15/25 Rx tabs sotalol 80 mg tablet 80 mg PO BID #60 tabs 10/05/23 01/15/25 Rx nitroglycerin 0.4 mg sublingual 0.4 mg sublingual Q5M PRN chest 08/22/24 01/15/25 History tablet pain Allergies Allergy/AdvReac Type Severity Reaction Status Date / Time coconut Allergy Intermediate Vomiting Verified 12/15/24 08:35 Exam Narrative Exam Narrative: General: cooperative and tired appearing Orientation: alert, awake and oriented x3 Head: normal to inspection Neck: normal visual inspection Cardio: no JVD, regular rate, regular rhythm Chest palpation & inspection: normal inspection of the chest, tender to palpate in L midclavicular line under nipple Resp Effort & Inspection: normal respiratory effort Abd: soft, non-tender, non-distended Extremities: Warm well perfused, no edema Constitutional Vital Signs, click to edit/add: Last Vital Signs Temp 98.4 F 01/15/25 06:57 Pulse 57 L 01/15/25 09:30 Resp 17 01/15/25 09:30 BP 140/83 01/15/25 09:30 Pulse Ox 95 01/15/25 09:20 O2 Del Method Room Air 01/15/25 06:57 Internal Medicine - H&P: Reslt Labs Labs: Short CBC 01/15/25 Range/Units 07:22 WBC 8.9 (4.0-11.0) 10^3/uL Hgb 10.1 L (14.0-18.0) g/dL Hct 30.4 L (42.0-54.0) % Plt Count 247 (150-450) 10^3/uL BMP 01/15/25 07:22 Sodium 138 Potassium 4.2 Chloride 100 Carbon Dioxide 26.4 BUN 19.0 H Creatinine 1.51 H Glucose 134 H Calcium 8.6 Assessment and Plan Assessment and Plan (1) Fracture of rib: Qualifiers: Encounter type: subsequent encounter Rib fracture type: single rib Laterality: left Fracture type: closed Fracture healing: with routine healing Qualified Code(s): S22.32XD - Fracture of one rib, left side, subsequent encounter for fracture with routine healing (2) COPD (chronic obstructive pulmonary disease): Qualifiers: COPD type: unspecified COPD Qualified Code(s): J44.9 - Chronic obstructive pulmonary disease, unspecified (3) History of stroke: (4) Foot drop, bilateral: (5) Hypertension: Qualifiers: Hypertension type: primary hypertension Qualified Code(s): I10 - Essential (primary) hypertension (6) Lung mass: (7) Obstructive pneumonia: (8) Atrial fibrillation: Qualifiers: Atrial fibrillation type: persistent (not longstanding) Qualified Code(s): I48.19 - Other persistent atrial fibrillation Plan Ciaran Mcnair is a 79 y/o M h/o hypertension, 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 1. 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 Alvarado consult if remains inpatient on 01/17/25 2. 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 Marmolejo as outpatient following stroke, confirmed with outside records has had recent follow-up with cardiology Dr. Larson with no mention of reinitiation of anticoagulation - [id number] = 6, however per patient reported outpatient cardiology discussion of holding anticoagulation, will hold on starting at present apixiban for now - continue atorvastatin, aspirin, and lisinopril - continue statin - presumed CKD, baseline appears around 1.4-1.5 Diet: regular Daily Labs: CBC, BMP Lines/Drains: PIV DVT ppx: sqh 5k q8h Code status: Full Status: observation for pain control
--- OUTSIDE RECORDS SUMMARY | 2025-01-15 11:05 | XMS_ITS | CCD ---
Author Organization [facility] Care Team Providers Care District [address] Judge Name Role Phone VERONICA LIZ Attending Unavailable [...] Unavailable PAY ., DR ORLANDO Attending Unavailable BRITT, DR REINA [employer] Unavailable PAY ., [...] Zachariah Ochoa MD Primary Care Provider [phone] Zachariah Ochoa MD Primary Care Provider MARCIANO [...] Attending Provider Gilles Herrera Attending Unavailable Gilles Herrrea Admitting Unavailable Faustino Wiley Attending Unavailable Allergies Allergy ClassificationReported Allergen(s)Allergy TypeDate of OnsetReaction(s) Facility (2 sources)Coconut extractDrug [facility]ergy[facility] [place] Other (1 source)coconut allergenic extractDrug Glfhmaj53-77-1018HxiegjdyrudQRYVCU Health [facility] (1 source)Coconut extractDrug Zjvillq53-94-6858XxtAv[facility] (4 sources)Coconut Oil OIL; Translations: [Coconut Oil OIL]Allergy to drug (finding)[facility] DO Work Phone: (10 sources)Coconut Oil; Translations: [COCONUT OIL]Drug Cmgisqz96-40-7865HqqauMercy Health [facility] (1 source)Coconut extractDrug Wnyupbi43-90-3710OhfuqgxnrC[facility] Rep[facility] Medications Current Medications MedicationDrug Class(es)DatesSig (Normalized)Sig (Original)amiodarone hydrochloride 200 mg oral tablet (3 sources)AntiarrhythmicStart: 12-08-2021 End: 03-57-9695lwuy 1 tablet by mouth once dailyamiodarone (CORDARONE) 200 MG tablet Take 1 tablet by mouth daily 90 tablet 0 12/08/2021 03/08/2022ctive Start: 12-03-2021 End: 50-65-2129vzsf 1 tablet by mouth twice dailyamiodarone (CORDARONE) 200 MG tablet Take 1 tablet by mouth 2 times daily for 9 doses 9 tablet 0 12/03/2021 12/08/2021 ActiveStart: 12-03-2021 End: 19-69-4412ksyhjahntq (CORDARONE) tablet 200 mgAspir-81 (2 sources)Aspir-81 Activeaspirin 81 mg delayed release oral tablet (20 sources)Platelet Aggregation Inhibitor, Nonsteroidal Anti-inflammatory Drug Start: 05-30-2020 End: 53-97-3168wiha 1 tablet by mouth once dailyStart: 05-29-2020 End: 14-65-3317hsbb 1 tablet by mouth once dailyAspirin 81 mg Tablet Discontinued 81 MG PO Daily May 29, 2020 1:00am May 30, 2020 1:41pmStart: 03-31-2019 End: 38-86-0662edii 1 tablet by mouth once dailyAspirin (Aspir-81) 81 mg Tablet,Delayed Release (Dr/Ec) Discontinued 81 MG PO Daily March 31, 2019 1:00am April 20, 2019 12:16pmatorvastatin 80 mg oral tablet (20 sources)HMG-CoA Reductase InhibitorStart: 93-32-2823irlz 1 tablet by mouth once daily in the eveningbelladonna alkaloids 16.2 mg / opium 60 mg rectal suppository (1 source)Start: 27-82-1384ljrtq-belladonna (B&O SUPPRETTES) 16.2-60 MG suppository 60 mgcefdinir 300 mg oral capsule (2 sources)Cephalosporin AntibacterialStart: 12-02-2021 End: 57-16-6328egyt 1 capsule by mouth every twelve hourscefdinir (OMNICEF) 300 MG capsule Take 1 capsule by mouth every 12 hours for 8 doses 8 capsule 0 12/07/2021 Active0.3 ml enoxaparin sodium 100 mg/ml prefilled syringe (1 source)Low Molecular Weight HeparinStart: 07-42-3412xplzczxyrh Sodium (LOVENOX) injection 30 mgglucagon (rdna) 1 mg injection (1 source)Antihypoglycemic AgentStart: 41-77-1906gkffmidm (rDNA) injection 1 mg 1000 ml glucose 100 mg/ml injection (3 sources)Start: 13-27-4210sxijzlnj 10 % infusionStart: 36-23-8646dfkmpzmy bolus 10% 125 mLStart: 69-77-8269lnhjhar chewable tablet 16 ghyoscyamine sulfate 0.125 mg sublingual tablet (1 source)Start: 72-77-6993dmfoouehbnf (LEVSIN/SL) sublingual tablet 125 mcg ibuprofen 400 mg oral tablet (8 sources)Nonsteroidal Anti-inflammatory Drugtake 1 tablet by mouth twice daily ibuprofen 400 MG tablet Take 1 tablet twice a day by oral route. Activeinsulin lispro 100 unt/ml injectable solution (3 sources)Insulin AnalogStart: 11-28-2021 End: 66-50-6805kiekbyz lispro (HUMALOG) injection vial 0-16 Unitslabetalol hydrochloride 5 mg/ml injectable solution (1 source)beta-Adrenergic BlockerStart: 38-38-3644socdomxja (NORMODYNE;TRANDATE) injection 10 mglisinopril 10 mg oral tablet (20 sources)Angiotensin Converting Enzyme InhibitorStart: 87-14-1730otdi 0.5 tablet by mouth once dailylisinopril 10 mg tablet Take 0.5 tablets (5 mg) by mouth once daily. 11/04/2023 ActiveStart: 27-22-2295eevzltjfdp 10 mg tablet 1 tablet (10 mg) once daily. 11/04/2023 ActiveStart: 99-86-4035gwpk 1 tablet by mouth once dailylisinopril (PRINIVIL;ZESTRIL) 10 MG tablet Take 1 tablet by mouth daily 30 tablet 3 12/03/2021 ActiveStart: 11-27-2021 End: 15-52-3477byml 1 tablet by mouth once dailyLisinopril 5 MG Oral Tablet TAKE 1 TABLET DAILY. Quantity: 90 Refills: 3 Ordered: 27-Nov-2021 Veronica Liz MD Start : 27-Nov-2021 Active new doseStart: 04-01-2019 End: 14-76-8350kxii 1 tablet by mouth once dailyloperamide hydrochloride 2 mg oral capsule (1 source)Opioid AgonistStart: 87-84-2561kqtrmfpohz (IMODIUM) capsule 2 mg magnesium oxide 400 mg oral tablet (1 source)Start: 11-11-2024 End: 22-08-7703ckkt 1 tablet by mouth twice dailymagnesium oxide (Mag-Ox) 400 mg (241.3 mg elemental) tablet Indications: Persistent atrial fibrillation (Multi) Take 1 tablet by mouth 2 times a day. 11/11/2024 11/11/2025 Activemetoprolol tartrate 25 mg oral tablet (7 sources)beta-Adrenergic BlockerStart: 31-99-8460hvth 1 tablet by mouth twice dailymetoprolol tartrate (LOPRESSOR) 25 MG tablet Take 1 tablet by mouth 2 times daily 60 tablet 3 12/03/2021 ActiveStart: 31-24-2515aqqupsmmmf (LOPRESSOR) injection 5 mgStart: 03-31-2019 End: 57-69-0826Umdqmxyhge Tartrate 50 mg tablet Discontinued 75 MG PO Twice daily March 31, 2019 4:13pm 2019 12:16pmStart: 03-31-2019 End: 04-29-1307rzme 75 mg by mouth twice dailyMetoprolol Tartrate Discontinued 75 MG PO Twice daily March 31, 2019 4:13pm April 20, 2019 12:16pmStart: 05-13-2018 End: 12-94-4525miwf 1 tablet by mouth twice dailyMetoprolol Tartrate 50 mg Tablet Discontinued 50 MG PO Twice daily 60 May 13, 2018 1:00am March 31, 2019 4:13pmondansetron (ZOFRAN-ODT) disintegrating tablet 4 mg (1 source)Start: 06-38-8223ygsznzmuzqj (ZOFRAN-ODT) disintegrating tablet 4 mg SITagliptin 100 mg oral tablet (9 sources)Dipeptidyl Peptidase 4 InhibitorStart: 47-37-7690bzyw 1 tablet by mouth once daily5 ml sodium chloride 9 mg/ml injection (2 sources)Start: 38-50-0356ihkgvt chloride flush 0.9 % injection 10 mLStart: 11-28-2021 End: .9 % sodium chloride infusionsotalol hydrochloride 80 mg oral tablet (20 sources)AntiarrhythmicStart: 10-26-2024 End: 14-91-9740jtte 0.5 tablet by mouth three times dailysotalol (Betapace) 80 mg tablet Indications: Persistent atrial fibrillation (Multi) Take 0.5 tablets (40 mg) by mouth 3 times a day. 135 tablet 3 10/26/2024 10/26/2025 ActiveStart: 12-11-2023 End: 44-54-1412mtua 1 tablet by mouth every twelve hourssotalol (Betapace) 80 mg tablet Take 1 tablet (80 mg) by mouth every 12 hours. 12/11/2023 10/26/2024 Discontinued (Reorder)Start: 08-21-2023 End: 15-27-5970aoqr 1 tablet by mouth twice dailysotalol (sotalol AF) 120 mg tablet Indications: Persistent atrial fibrillation (Multi) Take 1 tablet (120 mg) by mouth 2 times a day. 180 tablet 3 08/21/2023 01/28/2024 Discontinued (Dose adjustment)Start: 31-51-5688fuxm 1 tablet by mouth twice dailysotalol AF (Betapace AF) 120 MG tablet TAKE 1/2 TABLET TWICE A DAY BY MOUTH 03/11/2023 ActiveStart: 48-64-4394sdhj 1 tablet by mouth twice dailysotalol AF 120 mg tablet Indications: Persistent atrial fibrillation (Multi) TAKE 1/2 TABLET BY MOUTH TWICE A DAY 90 tablet 1 03/11/2023 ActiveStart: 62-44-8070peko 1 tablet by mouth twice dailySotalol HCl (AF) 120 MG Oral Tablet take 1/2 tablet by mouth twice daily Quantity: 90 Refills: 1 Ordered: 06-Jun-2022 Veronica Liz MD Start : 17-Feb-2022 ActiveStart: 04-20-2019 End: 23-97-5901xiwd 0.5 tablet by mouth twice dailysotalol AF [...] 0.4 mg oral capsule (2 sources)alpha-Adrenergic BlockerStart: 74-68-6857rcjq 1 capsule by mouth once dailytamsulosin (FLOMAX) 0.4 MG capsule Take 1 capsule by mouth daily 30 capsule 3 12/03/2021 Active Completed/Discontinued Medications MedicationDrug Class(es)DatesSig (Normalized)Sig (Original)acetaminophen 500 mg oral tablet (3 sources)Start: 11-29-2021 End: 59-59-6359okqaeiinkiayh (TYLENOL) tablet 1,000 mgStart: 11-28-2021 acetaminophen (TYLENOL) tablet 650 mgamoxicillin 875 mg / clavulanate 125 mg oral tablet (1 source)Penicillin-class AntibacterialStart: 11-28-2021 End: 19-54-4242csdngsggess-clavulanate (AUGMENTIN) 875-125 MG per tablet 1 tabletapixaban 5 mg oral tablet (4 sources)Factor Xa InhibitorStart: 05-13-2018 End: 81-32-8363crgt 1 tablet by mouth twice dailyApixaban (Eliquis) 5 mg Tablet Discontinued 5 MG PO Twice daily 60 April 01, 2019 1:00am May 30, 2020 1:41pm50 ml calcium gluconate 20 mg/ml injection (1 source)Start: 11-29-2021 End: 09-99-0951jdyupsz gluconate 1000 mg in sodium chloride 50 mLcefTRIAXone (ROCEPHIN) 1,000 mg in sterile water 10 mL IV syringe (1 source)Start: 11-28-2021 End: 23-96-3636pkbHJQKLmvz (ROCEPHIN) 1,000 mg in sterile water 10 mL IV syringe cephalexin 500 mg oral capsule (3 sources)Cephalosporin AntibacterialStart: 61-28-9693mchs 1 capsule by mouth every eight hoursCephalexin 500 MG Oral Capsule TAKE 1 CAPSULE BY MOUTH EVERY 8 HOURS Quantity: 30 Refills: 0 Ordered: 01-Dec-2020 DO Start : 01-Dec-2020 CompleteStart: 05-14-2018 End: 97-38-1489wsee 1 capsule by mouth twice dailyCephalexin 500 mg capsule Discontinued 500 MG PO Twice daily 09 01May 14, 2018 1:00am March 31, 2019 4:09pmclopidogrel 75 mg oral tablet (2 sources)P2Y12 Platelet InhibitorStart: 04-01-2019 End: 27-32-2312cypp 1 tablet by mouth once dailyClopidogrel (Plavix) 75 mg tablet Discontinued 75 MG PO Daily 30 April 01, 2019 1:00am April 20, 2019 12:16pm1 ml dexamethasone phosphate 4 mg/ml injection (1 source)CorticosteroidStart: 11-28-2021 End: 66-42-4277hvewezwhqlxck (DECADRON) injection 4 mgdexamethasone 1 mg/ml / tobramycin 3 mg/ml ophthalmic suspension (1 source)Aminoglycoside Antibacterial, CorticosteroidStart: 35-40-9977nbxn 2 drop(s) into the eye(s) four times dailyTobramycin-Dexamethasone 0.3-0.1 % Ophthalmic Suspension PLACE 2 DROPS INTO BOTH EYES 4 TIMES A DAYQuantity: 5 Refills: 0 Ordered: 22-Aug-2021 DO Start : 22-Aug-2021 Complete1 ml diphenhydrAMINE hydrochloride 50 mg/ml cartridge (1 source)Histamine-1 Receptor AntagonistStart: 11-30-2021 End: 14-34-2363pfwvgnkrerJPSGR (BENADRYL) injection 25 mgfamotidine (PEPCID) 20 mg in sodium chloride (PF) 10 mL injection (1 source)Start: 11-28-2021 End: 71-67-7767tnfjnehfcr (PEPCID) 20 mg in sodium chloride (PF) 10 mL injection gadoteridol (PROHANCE) injection 20 mL (1 source)Start: 11-28-2021 End: 16-75-9169avfdhhqigxx (PROHANCE) injection 20 mLiopamidol (ISOVUE-370) 76 % injection 90 mL (1 source)Start: 11-28-2021 End: 43-56-1737bjlwplnnj (ISOVUE-370) 76 % injection 90 mL5 ml levETIRAcetam 100 mg/ml injection (1 source)Start: 11-28-2021 End: 88-38-2411fixHUMNRqwols (KEPPRA) injection 500 mg100 ml magnesium sulfate 10 mg/ml injection (2 sources)Start: 11-29-2021 End: 57-25-6302wiytvouyj sulfate 1000 mg in dextrose 5% 100 mL IVPBStart: 11-28-2021 End: 23-80-9729bqucyrsda sulfate 4000 mg in 100 mL IVPB premixmetFORMIN hydrochloride 500 mg oral tablet (2 sources)BiguanideStart: 05-13-2018 End: 38-39-3027lchc 1 tablet by mouth twice daily at mealtimeMetformin 500 mg Tablet Discontinued 500 MG PO Twice daily with meals 60 May 13, 2018 1:00amMarch 31, 2019 4:09pmmethylPREDNISolone 4 MG Oral Tablet Therapy Pack (1 source)Start: 03-44-4566eoxraqSIUTHSUgcpey 4 MG Oral Tablet Therapy Pack TAKE [...] topical ointment (1 source)RNA Synthetase Inhibitor AntibacterialStart: 03-48-4648Dgfyxrcyy 2 % External Ointment APPLY TOPICALLY 3 TIMES DAILY Quantity: 22 Refills: 0 Ordered: 01-Dec-2020 DO Start : 01-Dec-2020 CompleteniCARdipine (CARDENE) 20 mg in 0.9 % sodium chloride 200 mL solution (1 source)Start: 11-28-2021 End: 86-99-7272ymHIRuhiqsh (CARDENE) 20 mg in 0.9 % sodium chloride 200 mL solutionnitroglycerin 0.4 mg sublingual tablet (10 sources)Nitrate VasodilatorStart: 58-74-4554Xlnmpeydxhmlk 0.4 MG Sublingual Tablet Sublingual DISSOLVE 1 TABLET UNDER THE TONGUE NEEDED Quantity: 25 Refills: 0 Ordered: 26-Dec-2021 DO Start : 26-Dec-2021 ActiveStart: 04-01-2019 End: 31-13-7766Vbyrgvzkmzqtn 0.4 mg Tablet, Sublingual Discontinued 0.4 MG SUBLINGUAL Q5M as needed for Chest Pain25 April 01, 2019 1:00am July 31, 2020 1:34pmofloxacin 3 mg/ml ophthalmic solution (2 sources)Quinolone AntimicrobialStart: 11-30-2021 End: 21-41-1544niouabato (OCUFLOX) 0.3 % solution 5 dropStart: 11-28-2021 End: 01-47-3691kskrgakzf (OCUFLOX) 0.3 % solution 10 dropomeprazole 20 mg delayed release oral capsule (2 sources)Proton Pump InhibitorStart: 05-30-2020 End: 64-74-9489ucxa 1 capsule by mouth once dailyOmeprazole 20 mg Capsule,Delayed Release(Dr/Ec) Discontinued 20 MG PO Daily May 30, 2020 1:00am July 31, 2020 1:34pmpolysaccharide iron complex 150 mg oral capsule (2 sources)Start: 04-20-2019 End: 13-45-4826Gcjwdyakdyjqca Iron Complex 150 mg iron capsule Discontinued 150 MG PO Every 48 hours 15 April 20, 2019 1:00am June 12, 2020 2:24pm2 ml prochlorperazine 5 mg/ml injection (1 source)PhenothiazineStart: 11-30-2021 End: 10-66-2239gjazjsisddplnwke (COMPAZINE) injection 10 mgsulfamethoxazole 800 mg / trimethoprim 160 mg oral tablet (1 source)Dihydrofolate Reductase Inhibitor Antibacterial, Sulfonamide AntimicrobialStart: 67-63-7028jyyv 1 tablet by mouth twice daily Sulfamethoxazole-Trimethoprim 800-160 MG Oral Tablet TAKE 1 TABLET BY MOUTH TWICE A DAY FOR 1 WEEK Quantity: 14 Refills: 0 Ordered: 22-Aug-2021 DO Start : 22-Aug-2021 CompletetraMADol hydrochloride 50 mg oral tablet (1 source)Opioid AgonistStart: 60-24-5371advg 1 tablet by mouth every four hours as needed for paintraMADol HCl - 50 MG Oral Tablet TAKE ONE TABLET BY MOUTH EVERY 4 HOURS NEEDED FOR PAIN Quantity: 20 Refills: 0 Ordered: 01-Dec-2020 DO Start : 01-Dec-2020 Completevancomycin (VANCOCIN) 1750 mg in sodium chloride 0.9 % 500 mL IVPB (1 source)Start: 11-28-2021 End: 93-19-9609uyejmzamah (VANCOCIN) 1750 mg in sodium chloride 0.9 % 500 mL IVPB Problems Active Problems Problem ClassificationProblemDateDocumented DateEpisodic/ChronicAcquired foot deformities (4 sources)Right foot drop; Translations: [Foot drop, right foot]01-07-2024 EpisodicAcute cerebrovascular disease (19 sources)Cerebrovascular accident; Translations: [Cerebral infarction, unspecified]Onset: 56-53-0259TjechvrOmdln myocardial infarction (2 sources)Acute myocardial infarction of inferior wall; Translations: [ST elevation (STEMI) myocardial infarction involving other coronary artery of inferior wall]23-05-8350RsqjxuaGrmihyhig infection; unspecified site (2 sources)Bacteremia; Translations: [Bacteremia]46-14-6918WxxycffvTrpkjwk tract disease (4 sources)Cholangiectasis; Translations: [Other specified diseases of biliary tract]41-16-2155MfogyqvDancxgn tract disease (2 sources)Common bile duct calculus; Translations: [Calculus of bile duct without cholangitis or cholecystitis without obstruction]21-98-3165Qwzojmis Cardiac dysrhythmias (20 sources)Paroxysmal atrial fibrillation; Translations: [Cardiac arrhythmia, unspecified]Onset: 64-39-3755EpfjksyKfnrnvd obstructive pulmonary disease and bronchiectasis (6 sources)Chronic obstructive pulmonary disease, unspecified; Translations: [Chronic obstructive lung disease]Onset: 68-28-9291PyojolvTorjzdgt atherosclerosis and other heart disease (20 sources)Single coronary vessel disease; Translations: [Coronary atherosclerosis of unspecified type of vessel, skull valley or graft]Onset: 09-25-2021 83-38-6930GmaunfnLgtkavd on above:Problem List clean-up per request of Phys. EHR CmteCoronary atherosclerosis and other heart disease (2 sources)Past history of procedure; Translations: [Coronary angioplasty status]97-77-1711WmnblytsVashntrytz and other anemia (2 sources)Anemia due to blood loss; Translations: [Iron deficiency anemia secondary to blood loss (chronic)]99-79-1840NmezdkgWriqrpilaj and other anemia (20 sources)Anemia; Translations: [Anemia, unspecified]Onset: 65-68-7941Bwxlyugv Comment on above:Problem List clean-up per request of Phys. EHR CmteDeficiency and other anemia (2 sources)Microcytic anemia; Translations: [Iron deficiency anemia, unspecified]EpisodicDeficiency and other anemia (6 sources)Anemia, unspecified; Translations: [ANEMIA UNSPECIFIED]Onset: 48-74-3777CatytpvkExinrlao mellitus with complications (3 sources)Polyneuropathy due to diabetes mellitus; Translations: [Diabetes 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]03-17-2024 ChronicDiabetes mellitus without complication (5 sources)Type 2 diabetes mellitus without complication; Translations: [Type 2 diabetes mellitus without complications]Onset: 69-40-2213DrpzaprSaxdpks on above:Problem List clean-up per request of Phys. EHR CmteDisorders of lipid metabolism (20 sources)Hyperlipidemia; Translations: [Other and unspecified hyperlipidemia] Onset: 585665-71-0185MwnwdxbIgvklyy on above:Problem List clean-up per request of Phys. EHR CmteE Codes: Fall (2 sources)Fall on same level, unspecified, initial encounter; Translations: [Fall on same level from slipping, tripping and stumbling with subsequent striking against other object, initial encounter]Onset: 10-41-3393Joufoymw Esophageal disorders (1 source)Gastro-esophageal reflux disease without esophagitis; Translations: [GERD WITHOUT ESOPHAGITIS]Onset: 80-97-3173FxdknvaNpztfdptq hypertension (20 sources)Essential hypertension; Translations: [Unspecified essential hypertension]Onset: 92-10-9461FdcsfidWevop and electrolyte disorders (2 sources)Hyponatremia; Translations: [Hypo-osmolality and hyponatremia]Onset: 38-77-8037AchobdarZpbiujmh; including migraine (4 sources)Headache; including migraine; Translations: [HEADACHE UNSPECIFIED] Onset: 18-16-3572Upiairoeteyfs and screening for infectious disease (8 sources)Patient encounter status; Translations: [Other specified vaccination] EpisodicLate effects of cerebrovascular disease (5 sources)Dysphagia following cerebral infarction; Translations: [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 EHR Cmte Occlusion or stenosis of precerebral arteries (8 sources)Right carotid artery stenosis; Translations: [Occlusion and stenosis of right carotid artery]Onset: 232678-75-4145BjhjryjAiaivvfpjavexp (1 source)Unspecified osteoarthritis, unspecified site; Translations: [UNSPECIFIED OSTEOARTHRITIS UNS SITE]Onset: 24-02-4416NzzvknoAsnda aftercare (8 sources)Drug therapy finding; Translations: [Long-term (current) use of other medications]EpisodicOther aftercare (1 source)[facility] (current) use of aspirin; Translations: [CORRECTION CURRENT USE OF ASPIRIN]Onset: 58-13-8432FdjygfkgWgjmp aftercare (3 sources)Other 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 (current) drug therapy; Translations: [OTH PRINCIPAL DEVELOPER CURRENT DRUG THERAPY]Onset: 58-26-6393BboorhttVipiy aftercare (16 sources)Taking high risk medication; Translations: [Other ad terminal makeup operator (current) drug therapy]Onset: 032900-89-8361NpziezucZydnj circulatory disease (1 source)Personal history of transient ischemic attack (TIA), and cerebral infarction without residual deficits; Translations: [PERS HX TIA AND CI NO RESID DEFICIT]Onset: 72-86-1326IxxayceoDgxtl hematologic conditions (1 source)Other specified abnormalities of plasma proteins; Translations: [OTH SPEC ABNORM PLASMA PROTEINS]Onset: 99-01-8769MqutowziUwxha injuries and conditions due to external causes (1 source)Unspecified injury of head, initial encounter; Translations: [UNSPECIFIED INJURY HEAD INITIAL ENC]Onset: 10-44-2063ZfgcrieqGcboq lower respiratory disease (1 source)Shortness of breathOnset: 35-87-3616PzfxyicvFuqni nutritional; endocrine; and metabolic disorders (1 source)Morbid (severe) obesity due to excess calories; Translations: [MORBID SEVERE OBES D/T EXCESS DELVIN]Onset: 35-92-8739HqwrgwkHietj nutritional; endocrine; and metabolic disorders (1 source)Body mass index (BMI) 30.0-30.9, adult; Translations: [BODY MASS INDEX BMI 30.0-30.9 ADULT]Onset: 90-82-2176LgumgeeNpybl screening for suspected conditions (not mental disorders or infectious disease) (8 sources)Hormone level - finding; Translations: [Other specified abnormal findings of blood chemistry]Onset: 135694-69-2993NdfjdacfFrljcmb on above: Problem List clean-up per request of Phys. EHR CmteOther skin disorders (4 sources)Asteatosis cutis; Translations: [Xerosis cutis]83-02-8609Louxayxh Otitis media and related conditions (2 sources)Otitis media; Translations: [Unspecified nonsuppurative otitis media, left ear]Onset: 89-98-7455DeolaaztMewdtmuwof and visceral atherosclerosis (3 sources)Peripheral vascular disease, unspecified; Translations: [Peripheral vascular disease]Onset: 950706-41-1158JpnjvnvMphmibj on above:Problem List clean-up per request of Phys. EHR CmteResidual codes; unclassified (1 source)Acquired absence of other specified parts of digestive tract; Translations: [ACQ ABSENCE OTH PART DIGESTV TRACT]Onset: 33-73-8425Iuovakqp Residual codes; unclassified (4 sources)Body mass index 20-24 - normal; Translations: [Body mass index (BMI) 24.0-24.9, adult]Onset: 642953-26-1518JumdknaiQydydyys codes; unclassified (2 sources)Body mass index (BMI) 24.0-24.9, adult; Translations: [Body mass index (BMI) 24.0-24.9, adult]Onset: 57-98-8742FdvutvvzCfuglaeku and history of mental health and substance abuse codes (20 sources)Ex-smoker; Translations: [Personal history of tobacco use]Onset: 124439-23-3230LixvvvtwSlsdwhh on above:QUIT MAR 2019;Substance-related disorders (3 sources)Nicotine dependence, unspecified, uncomplicated; Translations: [Tobacco user]Onset: 820243-38-8060BbkslgqQzijlhu (3 sources)Syncope and collapse; Translations: [Syncope]Onset: 04-23-2022 69-35-3897LbmxgctiEffrikk on above:Problem List clean-up per request of Phys. EHR CmteTransient cerebral ischemia (10 sources)Transient cerebral ischemic attack, unspecified; Translations: [Transient cerebral ischemia]Onset: 73-26-8358VqcmmxxFztgywqeukgy (1 source)[facility] (current) use of oral hypoglycemic drugsOnset: 06-10-2018 Unclassified (1 source)CONTACT W/AND (SUSP) EXPOS COVID-19; Translations: [CONTACT W/AND (SUSP) EXPOS COVID-19]Onset: 67-28-3166Lcrsvaldvlkz (2 sources)Other persistent atrial fibrillation; Translations: [Other persistent atrial fibrillation]Onset: 01-29-2023 Past or Other Problems Problem ClassificationProblemDateDocumented DateEpisodic/ChronicAcute bronchitis (1 source)Acute bronchiolitis, unspecified; Translations: [ACUTE BRONCHIOLITIS UNSPECIFIED]Onset: 06-23-5304WfecbleyLoyppoqv of upper limb (2 sources)Displaced fracture of proximal phalanx of left little finger, subsequent encounter for fracture with routine healing; Translations: [Displaced fracture of proximal phalanx of left little finger, initial encounter for closed fracture]Onset: 08-29-2021 Resolved: 36-21-1754SviztnakTkcoxtbhpubk; infection of eye (except that caused by tuberculosis or sexually transmitteddisease) (1 source)Unspecified conjunctivitis; Translations: [UNSPECIFIED CONJUNCTIVITIS] Onset: 92-39-1481BgczgvmsBbfy wounds of head; neck; and trunk (4 sources)Laceration without foreign body of left eyelid and periocular area, initial encounter; Translations: [LAC NO FB LT EYELID PERIOCULAR INIT]Onset: 73-97-5176QshwhpfnZmurj aftercare (1 source)[facility] (current) use of oral hypoglycemic drugs; Translations: [PRINCIPAL DEVELOPER USE ORAL HYPOGLYCEMIC DX]Onset: 87-38-6766SgtfgsvnYztwe connective tissue disease (2 sources)Pain in left handOnset: 08-29-2021 Resolved: 10-17-2190FpjnyxlsXkica injuries and conditions due to external causes (1 source)Unspecified foreign body in respiratory tract, part unspecified causing other injury, initial encounter; Translations: [UNS FB RESP TRACT UNS OTH INJ INIT]Onset: 99-37-2983KufzsuuqWynra injuries and conditions due to external causes (1 source)Other specified injuries of head, initial encounter; Translations: [OTH SPEC INJURIES HEAD INITIAL ENC]Onset: 25-14-4720ZmwsrilwHsnmv lower respiratory disease (1 source)Shortness of breath; Translations: [SHORTNESS OF BREATH]Onset: 52-79-9748CbtdutkeJstfv nutritional; endocrine; and metabolic disorders (19 sources)Overweight in adulthood with body mass index of 25 or more but less than 30; Translations: [Overweight]Onset: 859773-18-9252TuqugnsvTmlpf nutritional; endocrine; and metabolic disorders (2 sources)Body mass index (BMI) 26.0-26.9, adult; Translations: [Body mass index (BMI) 26.0-26.9, adult]Onset: 99-79-3618VplbkpoyKzwar nutritional; endocrine; and metabolic disorders (2 sources)Body mass index (BMI) 27.0-27.9, adult; Translations: [Body mass index (BMI) 27.0-27.9, adult]Onset: 90-89-6695MmcwkwanCldjj upper respiratory disease (3 sources)Nasal congestion; Translations: [NASAL CONGESTION]Onset: 08-22-2021 EpisodicOther upper respiratory infections (1 source)Acute pharyngitis, unspecified; Translations: [ACUTE PHARYNGITIS UNSPECIFIED]Onset: 44-99-2776XxvkuppgAmqpgcwdtetu (7 sources)Onset: 01-29-2023 Resolved: Results Test NameValueInterpretationReference RangeFacilityABO/Rhon 99-65-3054GCA/Rh PositiveInvalid Interpretation CodeGreen Cross HospitalComment on above: Performed By: #### [id number] #### [facility] [address] [place], [place] [address]BEM/Rh History Checkon 54-96-8787FFV/Rh History CheckPatient discharged priorChildren's Hospital for RehabilitationComment on above:Performed By: #### [id number] #### [facility] [address] [place], [place] [address]NJOZtn 64-71-8553UAAW Gel InterpNegativeNoSt. Mary's Medical CenterComment on above:Performed By: #### [id number] #### [facility] [address] [place], [place] [address]IQRuy 54-56-3582Tmyhf gap [Moles/Vol]10 mmol/LNormal6-16Green Cross HospitalComment on above:Performed By: #### [id number] #### [facility] [address] [place], [place] [address]TVH/Creat Ratio9 No OtirgBgq48-93FryiakGreen Cross Hospital Comment on above:Performed By: #### [id number] #### [facility] [address] [place], [place] [address]Khspptb [Mass/Vol]8.5 mg/dLLow8.9-11.1FPremier HealthComment on above:Performed By: #### [id number] #### [facility] [address] [place], [place] [address]Kafdpjym [Moles/Vol]100 mmol/YFkk378-799JiocggGreen Cross HospitalComment on above:Performed By: #### [id number] #### [facility] [address] [place], [place] [address]KW4 [Moles/Vol]29 mmol/SDjpuwc28-35ZdbbawGreen Cross Hospital Comment on above:Performed By: #### [id number] #### [facility] [address] [place], [place] [address]Lpjdgzfjdb [Mass/Vol]1.6 mg/dLHigh0.5-1.3FPremier HealthComment on above:Performed By: #### [id number] #### [facility] [address] [place], [place] [address]Casiihs [Mass/Vol]148 mg/oDUsyuai52-280SdugcsGreen Cross HospitalComment on above:Performed By: #### [id number] #### [facility] [address] [place], [place] [address]Witlwanxc [Moles/Vol]4.6 mmol/LNormal3.5-5.3FPremier HealthComment on above:Performed By: #### [id number] #### [facility] [address] [place], [place] [address]Wmxbnm [Moles/Vol]134 mmol/EWfw552-606SvpjnuGreen Cross HospitalComment on above:Performed By: #### [id number] #### [facility] [address] [place], [place] [address]Imcw nitrogen [Mass/Vol]15 mg/dLNormal5-21Green Cross HospitalComment on above:Performed By: #### [id number] #### [facility] [address] [place] [address]Aqoqp Bank ID#on [id number]#[id number] Interpretation CodeGreen Cross HospitalComment on above:Performed By: #### [id number] #### [facility] [address] [place] [address]LEJ w/ Auto Diffon 54-94-4922Yqulekqk Absolute0.0 E9/LNormal 0.0-0.2FPremier HealthComment on above:Performed By: #### [id number] #### [facility] [address] [place] [address]Nzthdtbft/100 WBC (Bld)0.5 %Normal0.0-2.0Green Cross HospitalComment on above:Performed By: #### [id number] #### [facility] [address] [place] [address]Aqo Absolute0.3 E9/LNormal0.0-0.5FPremier Health Comment on above:Performed By: #### [id number] #### [facility] [address] [place] [address]Iratctczquv/100 WBC (Bld)3.1 %Normal0.0-8.0Green Cross HospitalComment on above:Performed By: #### [id number] #### [facility] [address] [place] [address]Zlsusqsmtzt distribution width (RBC) [Ratio]17.6 %High10.9-14.2 Green Cross HospitalComment on above:Performed By: #### [id number] #### [facility] [address] [place] [address]Ynkdqtdmmg (Bld) [Volume fraction]31.4 %Low37.7-49.0Green Cross HospitalComment on above:Performed By: #### [id number] #### [facility] [address] [place] [address]Bpnvmhqzvy (Bld) [Mass/Vol]11.0 g/dLLow13.5-17.5FPremier HealthComment on above:Performed By: #### [id number] #### [facility] [address] [place] [address]Lhttw Absolute0.8 E9/LLow1.0-4.0[facility] Comment on above:Performed By: #### [id number] #### [facility] [address] [place] [address]Wwpmytusegq/100 WBC (Bld)9.4 %Low14.0-50.0Green Cross HospitalComment on above:Performed By: #### [id number] #### [facility] [address] [place] [address]IAJ (RBC) [Entitic mass]34.1 wgQyyg93.0-34.0Green Cross HospitalComment on above:Performed By: #### [id number] #### [facility] [address] [place] [address]FPBQ (RBC) [Mass/Vol]35.0 g/rDDbnscv87.4-36.0Green Cross HospitalComment on above:Performed By: #### [id number] #### [facility] [address] [place] [address]JDN (RBC) [Entitic vol]97.5 iDHrsayo46.0-100.0Green Cross HospitalComment on above:Performed By: #### [id number] #### [facility] [address] [place] [address]Plil Absolute0.7 E9/LNormal0.2-1.0[facility] Comment on above:Performed By: #### [id number] #### [facility] [address] [place] [address] 28686Fsiznkrln/100 WBC (Bld)7.5 %Normal4.0-14.0Green Cross HospitalComment on above:Performed By: #### [id number] #### [facility] [address] [place], [place] [address]Pfbggp Absolute7.1 E9/LNormal2.0-7.5FPremier Health Comment on above:Performed By: #### [id number] #### [facility] [address] [place], [place] [address]Pwurjp Auto79.5 %High36.0-75.0[facility] Comment on above:Performed By: #### [id number] #### [facility] [address] [place], [place] [address]Gmmfrzng923.0 E9/PCgntbz796.0-500.0[facility] Comment on above:Performed By: #### [id number] #### [facility] [address] [place], [place] [address]Bymqxomh mean volume (Bld) [Entitic vol]7.2 fLNormal6.4-10.8 Green Cross HospitalComment on above:Performed By: #### [id number] #### [facility] [address] [place], [place] [address]MAM8.2 E12/LLow4.3-5.9Green Cross HospitalComment on above:Performed By: #### [id number] #### [facility] [address] [place] [address]YIN4.9 E9/LNormal4.0-11.0Green Cross HospitalComment on above:Performed By: #### [id number] #### [facility] [address] [place], [place] [address]WF Abdomen/Pelvis w/ Contraston 15-42-9733GV Abdomen/Pelvis w/ ContrastExam Date/Time: 01/12/2025 14:20 EDT [...] Bharat Taylor MD Transcribed by: MARLYS Technologist: [facility] Chest w/ Contraston [id number] Chest w/ ContrastExam Date/Time: 01/12/2025 14:20 EDT [...] Bharat Taylor MD Transcribed by: MARLYS Technologist: LouiseGreen Cross HospitalCT Head or Brain w/o Contraston 06-54-8735TT Head or Brain w/o ContrastExam Date/Time: 01/12/2025 [...] Bharat Taylor MD Transcribed by: MARLYS Technologist: [facility] CenterCT Spine Cervical w/o Contraston 20-74-1615SA Spine Cervical w/o ContrastExam Date/Time: 01/12/2025 14:14 [...] Taylor MD Transcribed by: MARLYS Technologist: Micah [facility] Clinical Summaryon 88-00-8691PP Clinical SummaryED Clinical Summary [place] [id number] ED Clinical Summary Person Information Name: SHAHRZAD EDGAR/New_[place] Age: 79 Years : 1945 Sex: Male Language: German PCP: Zachariah Ochoa MD Marital Status: Visit [...] 01/12/2025 16:09:43 01/12/2025 16:09:43 01/12/2025 16:09:43 ADDRESS: [address] [place] [id number] PHYS DOC NOTES: MEDICAL INFORMATION: Prescriptions Given: PATIENT EDUCATION INFORMATION: Instructions: Rib Contusion; Cervical Strain and Sprain Rehab; Pulmonary Nodule; Acute Kidney Injury, Adult Follow up: With: Address: When: Travis Medellin [facility], [address] [place] [address] In 3 days 01/15/2025 Comments: Please call hematology oncology office for close outpatient follow-up regarding new onset left lungmass as discussed. Continue to monitor symptoms. Return to ED if symptoms worsen or new symptoms arise. With: Address: When: Zachariah Ochoa [facility] [facility], [place] [address] Business (1) In 3 days 01/15/2025 Comments: [...] medical advice; Mass of left lung; Neck strainAshtabula County Medical Center CenterED Patient Summaryon 72-53-5657QB Patient SummaryED Patient Summary [place] [id number] Patient Discharge Instructions Person Information Name: SHAHRZAD EDGAR Age: 79 Years Arrival Date: 01/12/2025 13:16:51 Discharge Diagnosis: KYLE (acute kidney injury); Accidental fall; Contusion of rib on left side; Left against medical advice; Mass of left lung; Neck strain Primary Care Physician: Zachariah Ochoa MD Provider Information Primary Provider: Faustino Wiley MD Advanced Cardiac Cath Tech:Darryn GAGE, Gagan Quinn The exam and treatment you received in the Emergency Department were for an urgent problem and are not intended as complete care. It is important that you follow up with a doctor, nurse practitioner,or physician???s pizza hut assistant for ongoing care. If your symptoms become worse or you do not improve asexpected and you are unable to reach your usual health care provider, you should return to the Emergency Department. We are available 24 hours a day. SHAHRZAD EDGAR has been given the following list of patient education materials, prescriptions and follow-up instructions: Follow-up Instructions: With: Address: When: Travis Medellin [facility], [address] [place] [address] [place] [address] In 3 days 01/15/2025 Comments: Please call hematology oncology office for close outpatient follow-up regarding new onset left lungmass as discussed. Continue to monitor symptoms. Return to ED if symptoms worsen or new symptoms arise. With: Address: When: Zachariah Ochoa [address] [facility], [place] [address] [facility] (1) In 3 days 01/15/2025 Comments: [...] opioids can be used to help relieve zgivklej-sp-awdizp pain and are often prescribed following a [...] don???t involve prescription opioids. (more content not included)...NormalGreen Cross HospitalEthanolon 50-68-0407Vrywlmh Lvl<10Normal<=11Green Cross HospitalComment on above: Performed By: #### [id number] #### [facility] [address] [place], [place] [address]Dje [facility]ly [facility] Panelon 91-00-7705Gpvmmjl [Mass/Vol]3.7 g/dLNormal 3.3-5.0Green Cross HospitalComment on above:Performed By: #### [id number] #### [facility] [address] [place], [place] [address]Blsfnbm/Globulin [Mass ratio]1.1 {ratio}Normal1.1-2.2FPremier HealthComment on above:Performed By: #### [id number] #### [facility] [address] [place], [place] [address]Eab Mjwg003 Int._Unit/NSkai54-80TambpwGreen Cross Hospital Comment on above:Performed By: #### [id number] #### [facility] [address] [place], [place] [address]PBZ65 Int._Unit/LNormal6-46Green Cross HospitalComment on above:Performed By: #### [id number] #### [facility] [address] [place], [place] [address]LUJ97 Int._Unit/LNormal5-43Green Cross HospitalComment on above:Performed By: #### [id number] #### [facility] [address] [place], [place] [address]Oatn Direct0.1 mg/dLNormal0.0-0.4FPremier Health Comment on above:Performed By: #### [id number] #### [facility] [address] [place], [place] [address]Jxdy Indirect0.8 mg/dLNormal0.1-0.9[facility] Comment on above:Performed By: #### [id number] #### [facility] [address] [place], [place] [address]Ifql Total0.9 mg/dLNormal0.0-1.1FPremier Health Comment on above:Performed By: #### [id number] #### [facility] [address] [place], [place] [address]Bgwyekkg (S) [Mass/Vol]3.3 g/dLNormal1.4-4.0Green Cross HospitalComment on above:Performed By: #### [id number] #### [facility] [address] [place], [place] [address]Ysqsabn [Mass/Vol]7.0 g/dLNormal6.0-7.8Green Cross HospitalComment on above:Performed By: #### [id number] #### [facility] [address] [place], [place] [address]Pwqvfi Acidon 28-99-0735Uiopwm Acid Lvl1.0 mmol/LNormal0.5-2.2 Green Cross HospitalComment on above:Performed By: #### [id number] #### [facility] [address] [place] [address]Vpfegf Levelon 80-44-9749Lamktk Lvl22 unit/YBgrnpl99-64JopwyoGreen Cross HospitalComment on above:Performed By: #### [id number] #### [facility] [address] [place] [address]XF & PTTon 68-87-7964QAK Coag (PPP) [Relative time]1.14 {INR} Invalid Interpretation CodeGreen Cross HospitalComment on above:Result Comment: INR results are specifically intended to assess patients stabilized on long-term Anticoagulation therapy suggested INR???s ???Less Intensive Anticoagulation??? 2.0 ??? 3.0 Conventional Range 3.0 ??? 4.5Performed By: #### [id number] #### [facility] [address] [place], [place] [address]WU68.8 second(s)High9.4-12.5[facility] CampusComment on above:Result Comment: 15 days - 4 [...] the same coagulation reagent and instrumentation as [facility]. Currently there are no coagulation studies available worldwide for children to 14 days, andno normal ranges.Performed By: #### [id number] #### [facility] [address] [place], [place] [address]TLZ18.0 second(s)High25.1-36.5[facility] Comment on above:Result Comment: Parameter 15 days [...] the same coagulation reagent and instrumentation as [facility]. Currently there are no coagulation studies available worldwide for children to 14 days, andno normal ranges. Heparin therapeutic range (represented by Anti-Factor Xa activity of 0.2 - 0.4 U/mL) corresponds to PTT of 56.6 - 109.0 sec.Performed By: #### [id number] #### [facility] [address] [place], [place] [address]Atl-Vcapvwu Noteon 05-68-9473Tft-Arrival NotePre-Arrival Note Pre-Arrival Summary Name: , CItizens Current Date: 01/12/2025 13:16:55 EDT Gender: Male Date of : Age: 79 Pre-Arrival Type: EMS ETA: 01/12/2025 13:31:00 EDT Primary Care Physician: Presenting Problem: fall; left shoulder pain Pre-Arrival User: Cristian MARTINEZ, Zaynab Dee Referring Source: Location: [place] Completion Date/Time: 01/12/2025 13:02:00 [facility] Emergency Department Pre-Hospital Report Form Vital Signs: Pre-Hospital Report: fall; +hit head, -loc, -thinners. +Cp. left shoulder pain. deformity 2 ribs onleft side Treatment in Route: Response to Treatment: Misc. Issues:NormalGreen Cross HospitalTroponinon 13-52-4260Pnmqlsbi HS 5.10 pg/mLLow15.90-38.40Green Cross HospitalComment on above:Result Comment: The 95% CI (Confidence Interval) PPV (Positive Predictive Value) for myocardial infarction in females is 38 pg/mL, in males 51 pg/mL. The results should be used in conjunction with clinical conditions of myocardial infarction. (Access High Sensitivity Troponin I Instructions For Use, Vipin Bahman, October 2017)Performed By: #### [id number] #### [facility] [address] [place], [place] [address]GE Chest Single Viewon 94-83-6200BV Chest Single ViewExam Date/Time: 01/12/2025 13:51 EDT [...] Will Matson MD Transcribed by: MARLYS Technologist: ZAYDACleveland Clinic Mercy HospitalXR Shoulder Complete Lefton 58-36-5053QA Shoulder Complete LeftExam Date/Time: 01/12/2025 13:52 EDT [...] Will Matson MD Transcribed by: MARLYS Technologist: SALVADORChildren's Hospital for RehabilitationeGFRon 81-89-6083vOTH41 mL/min/1.73 m2Low>=59Green Cross HospitalComment on above:Performed By: #### [id number] #### [facility] [address] [place] [id number] Cultureon 29-13-2767Echrgbns identified Cx Nom (U)No Growth 2 Days PERFORMED BY: [place] [address] PATHOLOGIST PROCUREMENT MANAGER MAYRA RANGEL M.D.[facility] Physician GroupComment on above: Performed By: #### CUU #### [place] [id number] USAECG 12 Lead[place] 12-12-7885Agxdo rhythm with occasional PACs QTc Miri is 501 [facility] Work Phone: ecg 12 [place] 67-79-6292Zfseic sinus rhythm with prolonged QTc interval of 517 [facility] Work Phone: ecg 12 [place] 26-68-2825Pbjper sinus rhythm with 1 PVC and QTc interval is borderline prolonged at 500 [facility] Work Phone: ecg 12 [place] 48-23-2172Hipmsn sinus rhythm with a QTc interval of 495 [facility] Work Phone: ecg 12 [place] 20-44-1063Yhbamv fibrillation with nonspecific ST-T changesCPFirelands Regional Medical Center Work Phone: ecg 12 [place] 47-13-1885Girkwc sinus rhythm with a QTc interval of 481 [facility] Work Phone: Tobacco Screening.on 76-83-8400Aighb depression screening assessmentNoJefferson Healthcare Hospital TherMark Work Phone: Fall risk assessmentb) One or more falls in the last yearJefferson Healthcare Hospital AlticastA [employer] Work Phone: Tobacco use status CPHSb) NoMMason General Hospital [employer] Work Phone: Office Visit (Cardiology)on 25-30-1067Kdgunz-up visit Diagnoses/Problems Assessed Persistent atrial fibrillation (427.31) [...] try to retrieve retrieve his record from [place] Surgical History Problems History of Back surgery [...] Recorded: 06Jun2022 09:22AM Heart Rate80, L Radial Qwjslhjd887, LUE, Sitting Rckaalulf34, LUE, Sitting Height6 ft 1 in Pzkaum804 lb BMI Hxvsjvuueb97.84 kg/m2 BSA Calculated2.2 Tobacco Useb) No Falls [...] (more content not included)...NormalUH Touchworks Tobacco Screening.on 50-05-5680Wyao risk assessmenta) No falls within the last yearJefferson Healthcare Hospital i[employer]itBetter 250 DO Work Phone: Tobacco use status CPHSb) [facility] [employer]te Health 250 DO Work Phone: Office Visit (Cardiology)on 59-90-8686Tlszrm-up visit Diagnoses/Problems Assessed Persistent atrial fibrillation (427.31) [...] Weight Tips; Status:Complete - Retrospective Authorization; Done: [id number] Some eating tips that can help you lose weight.; Status:Complete - Retrospective Authorization; Done: 05Jun2022 Persistent atrial fibrillation IO EKG Electrocardiogram- 12 Lead; Status:Complete; Done: [id number] SocHx: Former smoker Tobacco Use Screening; Status:Complete; Done: [id number] Patient Instructions Please bring all medicines, vitamins, and herbal supplements with you when you come to the office. Prescriptions will not be filled unless you are compliant with your follow up appointments or have a follow up appointment scheduled as per instruction of your physician. Refills should be requested at the time of your visit. Fall prevention education given [employer] Device discuss with patient Patient to call with correct medication list Retrieve records from [place] Will come back tomorrow with medication bottles [...] reports he was in the hospital in [place] in [place] after a stroke. Hedoes not know if [...] 4. I to retrieve his record from [place] 5. I advised the patient TO bring [...] (V15.82 (more content not included)...NormalUH TouchworksTobacco Screening.on 35-99-4249Ikgtt depression screening assessmentNoJefferson Healthcare Hospital Heart-[place] Range 250 DO Work Phone: Fall risk assessmentb) One or more falls in the last yearJefferson Healthcare Hospital Heart-[place] 250 DO Work Phone: Tobacco use status CPHSb) NoMMason General Hospital Heart- [place] 250 DO Work Phone: CBC AUTO DIFFon 89-32-4205DOPL #0.0 103/ulNormal 0.0-0.1[facility] Mentor HospitalComment on above:Performed By: #### CBC ####[facility] [address] [place], [place] [address]Dr.Yilan Pugh Basophils/100 WBC (Bld)0.5 %Normal0.2-2.0The [facility] Ment[facility] HospitalComment on above: Performed By: #### CBC ####[facility] Znccgvvacb[address] [place], [place] [address]Dr.Yilan ChangEO #0.4 103/ulNormal0.0-0.7The [facility] Ment[facility] HospitalComment on above:Performed By: #### CBC ####[facility] Numeedlkhp[address] [place], [place] [address]Dr.Yilan ChangEosinophils/100 WBC (Bld)4.7 %Normal0.9-7.0[facility] Ment[facility] HospitalComment on above:Performed By: #### CBC ####[facility] Avuqfjczaa[address] [place], [place] [address]Dr.Yilan ChangErythrocyte distribution width (RBC) [Ratio]13.7 %Normal 11.0-15.0The [facility] Ment[facility] HospitalComment on above:Performed By: #### CBC ####[facility] Pzdmeqhcek[address] [place], [place] [address]Dr. Yilan ChangHematocrit (Bld) [Volume fraction]40.5 %Critically low42.0-54.0The [facility] Ment[facility] HospitalComment on above:Performed By: #### CBC ####[facility] [address] [place] [address]Dr.Shondapreston KeatonHemoglobin (Bld) [Mass/Vol]13.5 g/dLCritically low14.0-18.0The [facility] HospitalComment on above:Performed By: #### CBC ####[facility] L[address]awrm[address]stl[address] [place], [place] [address]Dr.Shondapreston ChangIG #0.03 10e3/ulNormal0.00-0.03The [facility] Ment[facility] HospitalComment on above:Performed By: #### CBC ####[facility] Cddsklfxyo[address] [place], [place] [address]Dr.Sea ChangIG %0.4 %Normal 0.0-0.5The [facility] Ment[facility] HospitalComment on above:Performed By: #### CBC ####[facility] Hbxjavxhjz[address] [place], [place] [address]Dr.Sea PughLYMPH #2.0 103/ulNormal1.2-3.8The [facility] HospitalComment on above:Performed By: #### CBC ####[facility] Qtrcuncohx[address] [place], [place] [address]Dr.Shondapreston PughLymphocytes/100 WBC (Bld)25.4 %Sghwqq94.5-60.0The [facility] Ment[facility] HospitalComment on above:Performed By: #### CBC ####[facility] Zmtcpprllx[address] [place], [place] [address]Dr.Sea PughMANUAL DIFF REQ NONormalThe [facility] Clinic Mentor HospitalComment on above:Performed By: #### CBC ####[facility] Ioscjduyar[address] [place], [place] [address]Dr. Sea PughH (RBC) [Entitic mass]29.6 qvZvijro42.9-34.0[facility] Comment on above:Performed By: #### CBC ####[facility] Yvelnzzrxh[address] [place], [place] [address]Dr.Sea PughMCHC (RBC) [Mass/Vol]33.3 g/dL Kxihiv22.9-35.2The [facility] Mentor HospitalComment on above:Performed By: #### CBC ####[facility] [address] [address]Dr. Sea PughMCV (RBC) [Entitic vol]88.8 uVOkatka20.0-94.0The [facility] Comment on above:Performed By: #### CBC ####[facility] Wbeqgrfub[address] [place], [place] [address]Dr.Sea PughMONO #0.8 103/ulNormal0.3-0.8 [facility] HospitalComment on above:Performed By: #### CBC ####[facility] Ezfzdkbjju[address] [place], [place] [address]Dr.Sea Pugh Monocytes/100 WBC (Bld)10.4 %Normal1.7-12.0The [facility] HospitalComment on above:Performed By: #### CBC ####[facility] Hfvymqweoi[address] [place], [place] [address]Dr.Sea KeatonNEUT #4.6 103/ulNormal1.4-6.5The [facility] HospitalComment on above:Performed By: #### CBC ####[facility] Chchiwcvhj[address] [place], [place] [address]Dr.Sea PughNeutrophils/100 WBC (Bld)58.6 %Ahfqpi54.0-75.0The [facility] HospitalComment on above:Performed By: #### CBC ####[facility] Tjexnvdjoo[address] [place], [place] [address]Dr.Sea KeatonPlatelet mean volume (Bld) [Entitic vol]9.8 fLNormal9.5-13.5 [facility] HospitalComment on above:Performed By: #### CBC ####[facility] Vjmpq[address]wzs[address] [place], [place] [address]Dr.Shondapreston PughHrrohTYD619 103/exIfvbnh173-854Giu [facility] HospitalComment on above:Performed By: #### CBC ####[facility] Lpuybxuxgb[address] [place], [place] [address]Dr. Sea PughRBC4.56 106/ulCritically low4.70-6.10The [facility] HospitalComment on above:Performed By: #### CBC ####[facility] [address] [address]Dr.Yilan PughWBC7.8 103/ulNormal4.0-11.0The [facility] HospitalComment on above:Performed By: #### CBC ####[facility] [address] [address]Dr.Yilan CampuzanoC AUTO DIFFon [id number] #0.1 103/ulNormal0.0-0.1The [facility] HospitalComment on above: Performed By: #### HSTROPN, CMP, CRP #### [facility] [address] [address] [address] Sea PughBasophils/100 WBC (Bld)0.7 %Normal0.2-2.0The [facility] Comment on above:Performed By: #### HSTROPN, CMP, CRP #### [facility] [address] [address] [address] Sea Torre #0.3 103/ulNormal0.0-0.7The [facility] HospitalComment on above: Performed By: #### HSTROPN, CMP, CRP #### [facility] [address] [address] [address] Sea Fordosinophils/100 WBC (Bld)4.9 %Normal0.9-7.0The [facility] Comment on above:Performed By: #### HSTROPN, CMP, CRP #### [facility] [address] [address] [address] Sea Fordrythrocyte distribution width (RBC) [Ratio]14.0 %Xhkpob88.0-15.0 The [facility] Hospitalment on above:Performed By: #### HSTROPN, CMP, CRP #### [facility] [address] [address] [address] Sea PughHematocrit (Bld) [Volume fraction]38.5 %Critically low42.0-54.0 The [facility] HospitalComment on above:Performed By: #### HSTROPN, CMP, CRP #### [facility] [address] [address] [address] Sea PughHemoglobin (Bld) [Mass/Vol]13.3 g/dLCritically low14.0-18.0The [facility] HospitalComment on above:Performed By: #### HSTROPN, CMP, CRP #### [facility] [address] [place] [address] Dr. Sea Anguiano #0.02 10e3/ulNormal0.00-0.03The [facility] Hospitalment on above:Performed By: #### HSTROPN, CMP, CRP #### [facility] [address] [place] [address] Dr. Sea Anguiano %0.3 %Normal0.0-0.5The [facility] on above: Performed By: #### HSTROPN, CMP, CRP #### [facility] [address] [place] [address] Dr. Sea Galeano #1.5 103/ulNormal1.2-3.8The [facility] Hospitalment on above:Performed By: #### HSTROPN, CMP, CRP #### [facility] [address] [place] [address] Dr. Sea Princehocytes/100 WBC (Bld)22.7 %Tggqbp85.5-60.0The [facility] on above:Performed By: #### HSTROPN, CMP, CRP #### [facility] [address] [place] [address] Dr. Sea SoniUAL DIFF REQNONormalThe [facility] HospitalComment on above: Performed By: #### HSTROPN, CMP, CRP #### [facility] [address] [place] [address] Dr. Sea Figueroa (RBC) [Entitic mass]29.4 bhRbilqa10.9-34.0The [facility] HospitalComment on above:Performed By: #### HSTROPN, CMP, CRP #### [facility] [address] [place] [address] Dr. Sea Steele (RBC) [Mass/Vol]34.5 g/qGEylxki52.9-35.2The [facility] HospitalComment on above:Performed By: #### HSTROPN, CMP, CRP #### [facility] [address] [address] [address] Sea Steele (RBC) [Entitic vol]85.0 aLEdeofm40.0-94.0The [facility] HospitalComment on above:Performed By: #### HSTROPN, CMP, CRP #### [facility] [address] [place] [address] Dr. Sea Rain #0.7 103/ulNormal0.3-0.8The [facility] HospitalComment on above:Performed By: #### HSTROPN, CMP, CRP #### [facility] [address] [place] [address] Dr. Sea Bansalocytes/100 WBC (Bld)10.2 %Normal1.7-12.0The [facility] Comment on above:Performed By: #### HSTROPN, CMP, CRP #### [facility] [address] [place] [address] Dr. Sea Zapata #4.1 103/ulNormal1.4-6.5The [facility] HospitalComment on above:Performed By: #### HSTROPN, CMP, CRP #### [facility] [address] [place] [address] Dr. Sea Díazutrophils/100 WBC (Bld)61.2 %Wqfgau80.0-75.0The [facility] HospitalComment on above:Performed By: #### HSTROPN, CMP, CRP #### [facility] [address] [place] [address] Dr. Sea Caldwell mean volume (Bld) [Entitic vol]9.1 fLCritically low 9.5-13.5The [facility] HospitalComment on above:Performed By: #### HSTROPN, CMP, CRP #### [facility] [address], [place] [address] Dr. Sea PughPLT216 103/zxBlusxx441-871Uzg [facility] HospitalComment on above: Performed By: #### HSTROPN, CMP, CRP #### [facility] [address] [address] [address] Sea PughRBC4.53 106/ulCritically low4.70-6.10The [facility] HospitalComment on above:Performed By: #### HSTROPN, CMP, CRP #### [facility] [address] [address] [address] Sea PughWBC6.8 103/ulNormal4.0-11.0The [facility] HospitalComment on above: Performed By: #### HSTROPN, CMP, CRP #### [facility] [address] [place] [address] Dr. Osei ChangECHOCARDIO M/2D COMPLETEon 45-77-1730MEWORPZXQB M/2D COMPLETE Patient: SHAHRZAD EDGAR Exam Date: 04/21/2022 : 1945 Gender:M Ordering : SHAIKH Marya CAMPOS . Admission #: [id number] Family : Order #: [id number] CLICK HERE TO VIEW EXAM ECHOCARDIOGRAM REPORT PROCEDURE: CARDIO PULMONARY ECHOCARDIO M/2D COMP INDICATIONS: Elevated troponin, TIA, HX:NM COMPARISON: None. DESCRIPTION: COMPLETE ECHOCARDIOGRAM Real-time transthoracic [...] by: Florinda Chan M.D. on 04/21/2022 at 14:57[facility] HospitalMRI BRAIN WO CONon [id number] BRAIN WO CONEXAMINATION: MRI BRAIN WO CON, [...] authenticated by: RAMESH DE SANTIAGO Date: 2022-04-21 14:41[facility] HospitalPOINT OF CARE GLUCOSEon 77-64-7267Azofazt [Mass/Vol]180 mg/dL Critically wmwa33-180EheAvita Health System Galion HospitalComment on above:Performed By: #### POCGLUC ####[facility] [address] [address]Dr. Sea PughPROF CHEM 8 (BAS METB)on 09-25-6190Rpskk gap [Moles/Vol]13.5 mmol/LNormalAvita Health System Galion HospitalComment on above:Performed By: #### DDIM #### [facility] [address], [place] [address] Dr. Sea PughCalcium [Mass/Vol]8.7 mg/dLNormal8.5-10.1[facility] Comment on above:Performed By: #### DDIM #### [facility] [address] [address] [address] Sea PughChloride [Moles/Vol]100 mmol/XYfrnyo24-664Fan [facility] Comment on above:Performed By: #### DDIM #### [facility] [address] [address] [address] Sea PughCO2 [Moles/Vol]27.2 mmol/KYovmrk74.0-32.0The [facility] Comment on above:Performed By: #### DDIM #### [facility] [address] [place] [address] Dr. Sea PughCreatinine [Mass/Vol]1.27 mg/dLNormal0.70-1.30The [facility] HospitalComment on above:Performed By: #### DDIM #### [facility] [address] [place] [address] Dr. Osei ChangEGFR-AF LITHUANIAN>60Normal>=60The [facility] HospitalComment on above:Performed By: #### DDIM #### [facility] [address] [place] [address] Dr. Sea FordGFR-NON AF FFLUDFQY26 mL/min/1.70v1Yajrjtxsrz low>=60The [facility] HospitalComment on above:Performed By: #### DDIM #### [facility] [address] [address] [address] Sea PughGlucose [Mass/Vol]134 mg/dLCritically iini06-246Thc [facility] HospitalComment on above:Performed By: #### DDIM #### [facility] [address] [place] [address] Dr. Sea PughPotassium [Moles/Vol]3.7 mmol/LNormal3.5-5.1The [facility] Comment on above:Performed By: #### DDIM #### [facility] [address] [place] [address] Dr. Sea Reneeum [Moles/Vol]137 mmol/UTmhlpb748-142Rhj [facility] Comment on above:Performed By: #### DDIM #### [facility] [address] [place] [address] Dr. Sea Starr nitrogen [Mass/Vol]14.0 mg/dLNormal7.0-18.0The [facility] HospitalComment on above:Performed By: #### DDIM #### [facility] [address] [place] [address] Dr. Sea Starr nitrogen/Creatinine [Mass ratio]11.0 mg/mgNormalThe [facility] HospitalComment on above:Performed By: #### DDIM #### [facility] [address] [place] [address] Dr. Sea Boles SRINIVASAN 3-6on 63-66-9677XE [Catalytic activity/Vol]282 U/L Krrubn91-769Skw [facility] HospitalComment on above:Performed By: #### HSTROPN, CMP, CRP #### [facility] [address] [place] [address] Dr. Sea Dailey.MB [Mass/Vol]4.34 ng/mLCritically high<=3.60The [facility] on above:Performed By: #### HSTROPN, CMP, CRP #### [facility] [address] [place] [address] Dr. Sea PughHSTROP113.2 pg/mLCritically high4.0-76.1The [facility] Comment on above:Result Comment: CUT-OFF POINTS HAVE BEEN ESTABLISHED BASED ON THE FOURTH UNIVERSAL DEFINITIONS OF MYOCARDIAL INFARCTION. THE UPPER REFERENCE LIMIT (URL) OF TROPONIN, DEFINED THE 99TH PERCENTILE OF cTnI DISTRIBUTION IN A REFERENCE POPULATION, HAS BEEN CONFIRMED THE DECISION THRESHOLD FOR NM DIAGNOSIS.Performed By: #### HSTROPN, CMP, CRP #### [facility] [address] [place] [address] Dr. Sea Rachel AUTO DIFFon 01-60-5640USSM #0.0 103/ulNormal0.0-0.1The [facility] HospitalComment on above:Performed By: #### HSTROPN, CMP, CRP #### [facility] [address] [address] [address] Sea PughBasophils/100 WBC (Bld)0.5 %Normal0.2-2.0The [facility] Comment on above:Performed By: #### HSTROPN, CMP, CRP #### [facility] [address] [place] [address] Dr. Sea Torre #0.1 103/ulNormal0.0-0.7The [facility] HospitalComment on above: Performed By: #### HSTROPN, CMP, CRP #### [facility] [address] [place] [address] Dr. Sea Fordosinophils/100 WBC (Bld)0.6 %Critically low0.9-7.0The [facility] Hospitalment on above:Performed By: #### HSTROPN, CMP, CRP #### [facility] [address] [place] [address] Dr. Sea Fordrythrocyte distribution width (RBC) [Ratio]13.6 %Ocqrui11.0-15.0 The [facility] Hospitalment on above:Performed By: #### HSTROPN, CMP, CRP #### [facility] [address] [place] [address] Dr. Sea PughHematocrit (Bld) [Volume fraction]37.2 %Critically low42.0-54.0 The [facility] Hospitalment on above:Performed By: #### HSTROPN, CMP, CRP #### [facility] [address] [place] [address] Dr. Sea PughHemoglobin (Bld) [Mass/Vol]13.3 g/dLCritically low14.0-18.0The [facility] Hospitalment on above:Performed By: #### HSTROPN, CMP, CRP #### [facility] [address] [place] [address] Dr. Sea PughIG #0.04 10e3/ulCritically high0.00-0.03The [facility] Comment on above:Performed By: #### HSTROPN, CMP, CRP #### [facility] [address] [place] [address] Dr. Sea Anguiano %0.5 %Normal0.0-0.5The [facility] HospitalComment on above: Performed By: #### HSTROPN, CMP, CRP #### [facility] [address] [place] [address] Dr. Sea Galeano #1.2 103/ulNormal1.2-3.8The [facility] HospitalComment on above:Performed By: #### HSTROPN, CMP, CRP #### [facility] [address] [place] [address] Dr. Sea Princehocytes/100 WBC (Bld)14.7 %Critically low20.5-60.0The [facility] HospitalComment on above:Performed By: #### HSTROPN, CMP, CRP #### [facility] [address] [place] [address] Dr. Sea SoniUAL DIFF REQNONormalThe [facility] HospitalComment on above: Performed By: #### HSTROPN, CMP, CRP #### [facility] [address] [place] [address] Dr. Sea Steele (RBC) [Entitic mass]29.6 ioUvqzfv69.9-34.0The [facility] HospitalComment on above:Performed By: #### HSTROPN, CMP, CRP #### [facility] [address] [place] [address] Dr. Sea Steele (RBC) [Mass/Vol]35.8 g/dLCritically high29.9-35.2The [facility] HospitalComment on above:Performed By: #### HSTROPN, CMP, CRP #### [facility] [address] [place] [address] Dr. Sea Steele (RBC) [Entitic vol]82.9 fHCgbjfj71.0-94.0The [facility] HospitalComment on above:Performed By: #### HSTROPN, CMP, CRP #### [facility] [address] [address] [address] Sea Rain #0.7 103/ulNormal0.3-0.8The [facility] HospitalComment on above:Performed By: #### HSTROPN, CMP, CRP #### [facility] [address] [address] [address] Sea Bansalocytes/100 WBC (Bld)9.4 %Normal1.7-12.0The [facility] Comment on above:Performed By: #### HSTROPN, CMP, CRP #### [facility] [address] [place] [address] Dr. Sea Zapata #5.9 103/ulNormal1.4-6.5The [facility] HospitalComment on above:Performed By: #### HSTROPN, CMP, CRP #### [facility] [address] [address] [address] Sea Díazutrophils/100 WBC (Bld)74.3 %Azxmto50.0-75.0The [facility] HospitalComment on above:Performed By: #### HSTROPN, CMP, CRP #### [facility] [address] [place] [address] Dr. Sea Caldwell mean volume (Bld) [Entitic vol]9.4 fLCritically low 9.5-13.5The [facility] Hospitalment on above:Performed By: #### HSTROPN, CMP, CRP #### [facility] [address] [place] [address] Dr. Sea PughPLT215 103/tbTjjyxn412-564Ldj [facility] HospitalComment on above: Performed By: #### HSTROPN, CMP, CRP #### [facility] [address] [place] [address] Dr. Sea PughRBC4.49 106/ulCritically low4.70-6.10The [facility] HospitalComment on above:Performed By: #### HSTROPN, CMP, CRP #### [facility] [address] [address] [address] Sea PughWBC7.9 103/ulNormal4.0-11.0[facility] HospitalComment on above: Performed By: #### HSTROPN, CMP, CRP #### [facility] [address] [place] [address] Dr. Sea PughCovid-19 PCR ([facility]CO[facility])on 86-20-3350BPMA-CoV-2 (COVID-19) RNA PH[place]ENIX+probe Ql (Unsp spec)Not detectedNormalNOT DETECTEDThe [facility] Comment on above:Result Comment: When diagnostic [...] for this test is supported by the Consumer Lender of Health and Human Service's declaration that [...] longer be used).Performed By: #### DDIM #### [facility] [address] [place] [address] Dr. Sea PughPOINT OF CARE GLUCOSEon 34-12-5437Xjwtpsr [Mass/Vol]134 mg/dL Critically ivmi11-449Qmc [facility] HospitalComment on above:Performed By: #### DDIM #### [facility] [address] [place] [address] Dr. Sea PughPROF CHEM 8 (BAS METB)on 50-78-3300Zxicg gap [Moles/Vol]15.3 mmol/LNormalAvita Health System Galion HospitalComment on above:Performed By: #### BMP ####[facility] Ebbq[address] [place], [place] [address]Dr. Yilan ChangCalcium [Mass/Vol]8.9 mg/dLNormal8.5-10.1The [facility] HospitalComment on above:Performed By: #### BMP ####[facility] Rtpzghkv[address] [place], [place] [address]Dr.Yilan ChangChloride [Moles/Vol]101 mmol/LNormal 98-107The [facility] HospitalComment on above:Performed By: #### BMP ####[facility] Agxhefvuri[address] [place], [place] [address]Dr.Yilan ChangCO2 [Moles/Vol]25.5 mmol/KGnbpwr95.0-32.0The [facility] HospitalComment on above: Performed By: #### BMP ####[facility] [address]rctj[address] [place], [place] [address]Dr.Yilan ChangCreatinine [Mass/Vol]1.09 mg/dLNormal 0.70-1.30The [facility] on above:Performed By: #### BMP ####[facility] Fopymdxgpn[address] [place], [place] [address]Dr. Yilan ChangEGFR-AF LITHUANIAN>60Normal>=60The [facility] HospitalCommclaren greater lans[facility] on above: Performed By: #### BMP ####[facility] [address]ynaxseuq[address] [place], [place] [address]Dr.Yilan ChangEGFR-NON AF LITHUANIAN>60Normal>=60The [facility] HospitalComment on above:Performed By: #### BMP ####[facility] Gilnaytuyk[address] [place], [place] [address]Dr.Yilan ChangGlucose [Mass/Vol]150 mg/dLCritically lnxj70-339Xpp [facility] HospitalComment on above: Performed By: #### BMP ####[facility] T[address]rxfctfy[address] [place], [place] [address]Dr.Yilan ChangPotassium [Moles/Vol]3.8 mmol/LNormal 3.5-5.1The [facility] HospitalComment on above:Performed By: #### BMP ####[facility] [address] [place], [place] [address]Uk.Sea Pugh Sodium [Moles/Vol]138 mmol/GGrcltf163-639Xob [facility] Hospitalment on above: Performed By: #### BMP ####[facility] [address] [place], [place] [address]Uu.Shondapreston ChangUrea nitrogen [Mass/Vol]11.0 mg/dLNormal 7.0-18.0The [facility] HospitalComment on above:Performed By: #### BMP ####[facility] [address] [place], [place] [address]Te. Sea ChangUrea nitrogen/Creatinine [Mass ratio]10.1 mg/mgNormalThe [facility] HospitalComment on above:Performed By: #### BMP ####[facility] [address] [id number] Burnette, HIGH SENSITIVITYon 45-92-5479HHRUTO313.3 pg/mLCritically high4.0-76.1The [facility] on above:Result Comment: CUT-OFF POINTS HAVE BEEN ESTABLISHED BASED ON THE FOURTH UNIVERSAL DEFINITIONS OF MYOCARDIAL INFARCTION. THE UPPER REFERENCE LIMIT (URL) OF TROPONIN, DEFINED THE 99TH PERCENTILE OF cTnI DISTRIBUTION IN A REFERENCE POPULATION, HAS BEEN CONFIRMED THE DECISION THRESHOLD FOR NM DIAGNOSIS.Performed By: #### DDIM #### [facility] [address] [address] [address] Sea PughHSTROP141.1 pg/mLCritically high4.0-76.1The [facility] Comment on above:Result Comment: CUT-OFF POINTS HAVE BEEN ESTABLISHED BASED ON THE FOURTH UNIVERSAL DEFINITIONS OF MYOCARDIAL INFARCTION. THE UPPER REFERENCE LIMIT (URL) OF TROPONIN, DEFINED THE 99TH PERCENTILE OF cTnI DISTRIBUTION IN A REFERENCE POPULATION, HAS BEEN CONFIRMED THE DECISION THRESHOLD FOR NM DIAGNOSIS.Performed By: #### HSTROPN #### [facility] [address], [place] [address] Dr. Sea Boles SRINIVASAN ADMITon 40-21-3908NS [Catalytic activity/Vol]266 U/L Gmigxl73-968Svb [facility] HospitalComment on above:Performed By: #### BMP, CMADM ####[facility] [address] [address]DrMook Dailey.MB [Mass/Vol]4.18 ng/mLCritically high<=3.60The [facility] Comment on above:Performed By: #### BMP, CMADM ####[facility] [address] [address]DrMook PughHSTROP32.5 pg/mLNormal4.0-76.1The [facility] Hospitalment on above:Result Comment: CUT-OFF POINTS HAVE BEEN ESTABLISHED BASED ON THE FOURTH UNIVERSAL DEFINITIONS OF MY OCARDIAL INFARCTION. THE UPPER REFERENCE LIMIT (URL) OF TROPONIN, DEFINED THE 99TH PERCENTILE OF cTnI DISTRIBUTION IN A REFERENCE POPULATION, HAS BEEN CONFIRMED THE DECISION THRESHOLD FOR NM DIAGNOSIS.Performed By: #### BMP, CMADM ####[facility] [address] [address]Dr. Sea RowlandO241 ng/mL Critically oowq74-85Ihh [facility] on above:Performed By: #### BMP, CMADM ####[facility] [address] [address]Dr. Sea Rachel AUTO DIFFon 27-36-2726YTIV #0.0 103/ulNormal0.0-0.1The [facility] HospitalComment on above:Performed By: #### CBC #### [facility] [address] [address] [address] Sea Montgomerysophils/100 WBC (Bld)0.3 %Normal0.2-2.0The [facility] Comment on above:Performed By: #### CBC #### [facility] [address] [address] [address] Sea Torre #0.2 103/ulNormal0.0-0.7The [facility] on above: Performed By: #### CBC #### [facility] [address] [address] [address] Sea Fordosinophils/100 WBC (Bld)1.4 %Normal0.9-7.0[facility] Comment on above:Performed By: #### CBC #### [facility] [address] [place] [address] Dr. Sea Fordrythrocyte distribution width (RBC) [Ratio]13.5 %Rmzsvk66.0-15.0 [facility] HospitalComment on above:Performed By: #### CBC #### [facility] [address] [place] [address] Dr. Sea PughHematocrit (Bld) [Volume fraction]37.5 %Critically low42.0-54.0 [facility] HospitalComment on above:Performed By: #### CBC #### [facility] [address] [place] [address] Dr. Sea PughHemoglobin (Bld) [Mass/Vol]13.4 g/dLCritically low14.0-18.0[facility] HospitalComment on above:Performed By: #### CBC #### [facility] [address] [place] [address] Dr. Sea Anguiano #0.08 10e3/ulCritically high0.00-0.03[facility] Comment on above:Performed By: #### CBC #### [facility] [address] [place] [address] Dr. Sea Anguiano %0.7 %Critically high0.0-0.5ThKettering HealthComment on above:Performed By: #### CBC #### [facility] [facility] [address] [place] [address] Dr. Sea Galeano #1.1 103/ulCritically low1.2-3.8[facility] Comment on above:Performed By: #### CBC #### [facility] [address] [place] [address] Dr. Sae Novamphocytes/100 WBC (Bld)8.7 %Critically low20.5-60.0[facility] HospitalComment on above:Performed By: #### CBC #### [facility] [address] [place] [address] Dr. Sea Merino DIFF REQNONormalThe [facility] HospitalComment on above: Performed By: #### CBC #### [facility] [address] [place] [address] Dr. Sea Steele (RBC) [Entitic mass]30.0 vyZaskxf78.9-34.0[facility] HospitalComment on above:Performed By: #### CBC #### [facility] [address] [place] [address] Dr. Sea Stelee (RBC) [Mass/Vol]35.7 g/dLCritically high29.9-35.2[facility] HospitalComment on above:Performed By: #### CBC #### [facility] [address] [place] [address] Dr. Sea Izaguirre (RBC) [Entitic vol]84.1 rSMahtxg24.0-94.0The [facility] HospitalComment on above:Performed By: #### CBC #### [facility] [address] [place] [address] Dr. Sea Rain #0.8 103/ulNormal0.3-0.8The [facility] HospitalComment on above:Performed By: #### CBC #### [facility] [address] [place] [address] Dr. Sea Bansalocytes/100 WBC (Bld)6.8 %Normal1.7-12.0[facility] Comment on above:Performed By: #### CBC #### [facility] [address] [place] [address] Dr. Sae Zapata #10.0 103/ulCritically high1.4-6.5[facility] Comment on above:Performed By: #### CBC #### [facility] [address] [place] [address] Dr. Sea Díazutrophils/100 WBC (Bld)82.1 %Critically high43.0-75.0[facility] HospitalComment on above:Performed By: #### CBC #### [facility] [address] [place] [address] Dr. Sea Santacruzlet mean volume (Bld) [Entitic vol]9.2 fLCritically low 9.5-13.5[facility] HospitalComment on above:Performed By: #### CBC #### [facility] [address] [place] [address] Dr. Sea PughPLT203 103/gjRwvlpa929-359Mdj [facility] HospitalComment on above: Performed By: #### CBC #### [facility] [address] [address] [address] Sea PughRBC4.46 106/ulCritically low4.70-6.10[facility] HospitalComment on above:Performed By: #### CBC #### [facility] [address] [place] [address] Dr. Sea PughWBC12.1 103/ulCritically high4.0-11.0[facility] HospitalComment on above:Performed By: #### CBC #### [facility] [address] [place] [address] Dr. Sea PughCT CSPINE WO CONon [id number] CSPINE WO CONEXAMINATION: CT CSPINE WO CON [...] Electronically authenticated by: REINA GOMEZ Date: 2022-04-19 20:22NoReg[facility] Hospital [facility] EastCT STROKE HEAD WOon [id number] STROKE HEAD WONONCONTRAST CT SCAN OF THE [...] Electronically authenticated by: OBI MIDDLETON Date: 2022-04-19 20:[address] [place] [address] CHEST WO W CONon [id number] CHEST WO W CON EXAMINATION:CTA CHEST WO [...] Electronically authenticated by: RIC MOON Date: 2022-04-19 21:52[facility] HospitalD-DIMERon 06-09-2393U-DIMER2.01 mg/L FEUCritically high<=0.59 [facility] Hospitalment on above:Performed By: #### DDIM #### [facility] [address] [address] [address] Sea Castro-DIMER COMMENTSSEE BELOWMount Carmel Health System on above:Result Comment: Increases in D-Dimer concentration [...] generalized hospitalization. Performed By: #### DDIM #### [facility] [address] [address] [address] Sea PughPROF CHEM 8 (BAS METB)on 23-05-2396Qlhkq gap [Moles/Vol]19.2 mmol/LNormalThe [facility] on above:Performed By: #### DALE, DOUGIEDM ####[facility] [address] [address]Dr. Sea ChangCalcium [Mass/Vol]9.1 mg/dLNormal8.5-10.1[facility] on above:Performed By: #### DALE, CMADM ####[facility] [address] [address]Dr. Sea ChangChloride [Moles/Vol]98 mmol/L Xhkrow78-434Xdx [facility] on above:Performed By: #### DALE, CMADM ####[facility] [address] [address]DrMook Osei ChangCO2 [Moles/Vol]21.4 mmol/XWqipzk35.0-32.0The López HospitalComment on above:Performed By: #### DALE, CMADM ####[facility] [address] [id number]. Yilan ChangCreatinine [Mass/Vol]1.45 mg/dLCritically high0.70-1.30[facility] HospitalComment on above:Performed By: #### DALE, CMADM ####[facility] [address] [id number]. Yilan ChangEGFR-AF TXKSLZBQ69 mL/min/1.32q0Fmlrwzyamb low>=60The [facility] HospitalComment on above:Performed By: #### DALE, CMADM ####[facility] [address] [place], [place] [id number]. Yilan ChangEGFR- NON AF HRAVHYEM03 mL/min/1.90d4Xmzvvvncam low>=60The [facility] HospitalComment on above:Performed By: #### DALE, CMADM ####[facility] [address] [place], [place] [address]Dr. Yilan ChangGlucose [Mass/Vol]221 mg/dL Critically kbrj42-769Jfr [facility] HospitalComment on above:Performed By: #### DALE, CMADM ####[facility] [address] [place], [place] [address]Dr. Yilan ChangPotassium [Moles/Vol]3.6 mmol/LNormal3.5-5.1[facility] HospitalComment on above:Performed By: #### DALE, CMADM ####[facility] [address] [place], [place] [address]Dr. Yilan ChangSodium [Moles/Vol]135 mmol/LCritically bby984-106Fef [facility] HospitalComment on above: Performed By: #### DALE, CMADM ####[facility] [address] [place], [place] [address]Dr. Yilan ChangUrea nitrogen [Mass/Vol]12.0 mg/dL Normal7.0-18.0[facility] HospitalComment on above:Performed By: #### DALE, CMADM ####[facility] [address] [place] [address] [address] Sea PughUrea nitrogen/Creatinine [Mass ratio]8.3 mg/mgNoWayne Hospital on above:Performed By: #### BMP, CMADM ####[facility] [address] [place], [place] [address]Fm. Sea PughXR CHEST 1 Von [id number] CHEST 1 VEXAMINATION: XR CHEST 1 V HISTORY: Left arm weakness and tingling. 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 COMPARISON: 09/22/2021 portable chest TECHNIQUE: Portable chest FINDINGS: The lung parenchyma is free of consolidation or infiltrate. No pneumothorax or pleural effusion. The cardiac, mediastinal and hilar contours are normal. The visualized osseous structures exhibit no gross abnormality. IMPRESSION: No acute cardiopulmonary abnormality. Electronically authenticated by: REINA GOMEZ Date: 2022-04-19 20:12[facility] HospitalXR MODIFIED BARIUM SWALLOWon [id number] MODIFIED BARIUM SWALLOWEXAMINATION: XR MODIFIED BARIUM SWALLOW [...] Electronically authenticated by: REINA GO Date: 2021-12-20 10:49[facility] HospitalCARDIAC SRINIVASAN 3-6on [id number] [Catalytic activity/Vol]63 U/L Eboobv10-254Ckb [facility] on above:Performed By: #### CMREP ####[facility] [address] [place], [place] [address]Zr. Sea PughCK.MB [Mass/Vol]1.00 ng/mLNormal<=3.60[facility] on above:Performed By: #### CMREP ####[facility] [address] [place], [place] [address]Kv. Sea PughHSTROP7.1 pg/mLNormal4.0-76.1The [facility] HospitalComment on above:Result Comment: CUT-OFF POINTS HAVE BEEN ESTABLISHED BASED ON THE FOURTH UNIVERSAL DEFINITIONS OF MYOCARDIAL INFARCTION. THE UPPER REFERENCE LIMIT (URL) OF TROPONIN, DEFINED THE 99TH PERCENTILE OF cTnI DISTRIBUTION IN A REFERENCE POPULATION, HAS BEEN CONFIRMED THE DECISION THRESHOLD FOR NM DIAGNOSIS.Performed By: #### CMREP ####[facility] [address] [address]Dr. Sea Boles SRINIVASAN ADMITon 08-21-0903GA [Catalytic activity/Vol]66 U/AXjxsic99-052Jzq [facility] Comment on above:Performed By: #### DDIM #### [facility] [address] [address] [address] Sea Dailey.MB [Mass/Vol]0.93 ng/mLNormal<=3.60[facility] Comment on above:Performed By: #### DDIM #### [facility] [address] [place] [address] Dr. Sea PughHSTROP8.2 pg/mLNormal4.0-76.1The [facility] on above:Result Comment: CUT-OFF POINTS HAVE BEEN ESTABLISHED BASED ON THE FOURTH UNIVERSAL DEFINITIONS OF MYOCARDIAL INFARCTION. THE UPPER REFERENCE LIMIT (URL) OF TROPONIN, DEFINED THE 99TH PERCENTILE OF cTnI DISTRIBUTION IN A REFERENCE POPULATION, HAS BEEN CONFIRMED THE DECISION THRESHOLD FOR NM DIAGNOSIS.Performed By: #### DDIM #### [facility] [address] [address] [address] Sea RowlandO62 ng/oENqqzsm84-35Dbo [facility] HospitalComment on above: Performed By: #### DDIM #### [facility] [address] [address] [address] Sea CampuzanoC AUTO DIFFon [id number] #0.0 103/ulNormal0.0-0.1The [facility] HospitalComment on above:Performed By: #### DDIM #### [facility] [address] [address] [address] Sea PughBasophils/100 WBC (Bld)0.3 %Normal0.2-2.0[facility] Comment on above:Performed By: #### DDIM #### [facility] [address] [place] [address] Dr. Sea Torre #0.5 103/ulNormal0.0-0.7The [facility] HospitalComment on above: Performed By: #### DDIM #### [facility] [address] [place] [address] Dr. Sea Fordosinophils/100 WBC (Bld)5.4 %Normal0.9-7.0[facility] Comment on above:Performed By: #### DDIM #### [facility] [address] [place] [address] Dr. Sea Fordrythrocyte distribution width (RBC) [Ratio]13.7 %Xvzpgv20.0-15.0 [facility] HospitalComment on above:Performed By: #### DDIM #### [facility] [address] [place] [address] Dr. Sea PughHematocrit (Bld) [Volume fraction]34.9 %Critically low42.0-54.0 [facility] HospitalComment on above:Performed By: #### DDIM #### [facility] [address] [place] [address] Dr. Sea PughHemoglobin (Bld) [Mass/Vol]12.2 g/dLCritically low14.0-18.0[facility] HospitalComment on above:Performed By: #### DDIM #### [facility] [address] [place] [address] Dr. Sea Anguiano #0.07 10e3/ulCritically high0.00-0.03[facility] Comment on above:Performed By: #### DDIM #### [facility] [address] [place] [address] Dr. Sea Anguiano %0.7 %Critically high0.0-0.5ThKettering HealthComment on above:Performed By: #### DDIM #### [facility] [address] [place] [address] Dr. Sea Galeano #1.3 103/ulNormal1.2-3.8[facility] HospitalComment on above:Performed By: #### DDIM #### [facility] [address] [place] [address] Dr. Sea Novamphocytes/100 WBC (Bld)13.5 %Critically low20.5-60.0[facility] HospitalComment on above:Performed By: #### DDIM #### [facility] [address] [place] [address] Dr. Sea Merino DIFF REQNONormalThe [facility] HospitalComment on above: Performed By: #### DDIM #### [facility] [address] [place] [address] Dr. Sea Figueroa (RBC) [Entitic mass]30.5 gnVimjlv00.9-34.0[facility] HospitalComment on above:Performed By: #### DDIM #### [facility] [address] [place] [address] Dr. Sea Steele (RBC) [Mass/Vol]35.0 g/yAXzxipx15.9-35.2The [facility] HospitalComment on above:Performed By: #### DDIM #### [facility] [address] [place] [address] Dr. Sea Steele (RBC) [Entitic vol]87.3 gGDthfuh14.0-94.0[facility] HospitalComment on above:Performed By: #### DDIM #### [facility] [address] [place] [address] Dr. Sea Rain #1.3 103/ulCritically high0.3-0.8[facility] Comment on above:Performed By: #### DDIM #### [facility] [address] [place] [address] Dr. Sea Bansalocytes/100 WBC (Bld)12.9 %Critically high1.7-12.0[facility] HospitalComment on above:Performed By: #### DDIM #### [facility] [address] [place] [address] Dr. Sea DíazUT #6.7 103/ulCritically high1.4-6.5[facility] Comment on above:Performed By: #### DDIM #### [facility] [address] [place] [address] Dr. Sea Díazutrophils/100 WBC (Bld)67.2 %Tqwynw88.0-75.0[facility] HospitalComment on above:Performed By: #### DDIM #### [facility] [address] [place] [address] Dr. Sea PughPlatelet mean volume (Bld) [Entitic vol]9.7 fLNormal9.5-13.5The [facility] HospitalComment on above:Performed By: #### DDIM #### [facility] [address] [place] [address] Dr. Sea PughPLT226 103/tgFzonfc696-783Hkx [facility] HospitalComment on above: Performed By: #### DDIM #### [facility] [address] [place] [address] Dr. Sea PughRBC4.00 106/ulCritically low4.70-6.10The [facility] HospitalComment on above:Performed By: #### DDIM #### [facility] [address] [place] [address] Dr. Sea PughWBC10.0 103/ulNormal4.0-11.0[facility] HospitalComment on above:Performed By: #### DDIM #### [facility] [address] [place] [address] Dr. Sea Schultz CHEST WO W CONon [id number] CHEST WO W CONEXAMINATION: CTA CHEST WO [...] Electronically authenticated by: OSITO CUELLO Date: 2021-12-06 01:29[facility] HospitalD-DIMERon 30-33-7211S-DIMER1.11 mg/L FEUCritically high<=0.59 [facility] HospitalComment on above:Performed By: #### DDIM #### [facility] [address] [address] [address] Sea Castro-DIMER COMMENTSSEE BELOWUniversity Hospitals Portage Medical Centerment on above:Result Comment: Increases in D-Dimer concentration [...] generalized hospitalization. Performed By: #### DDIM #### [facility] [address] [address] [address] Sea PughPROF CHEM 8 (BAS METB)on 09-04-0182Szfix gap [Moles/Vol]9.5 mmol/LNormalThe [facility] HospitalComment on above:Performed By: #### HSTROPN, CMP, CRP #### [facility] [address] [address] [address] Sea PughCalcium [Mass/Vol]8.6 mg/dLNormal8.5-10.1[facility] Comment on above:Performed By: #### HSTROPN, CMP, CRP #### [facility] [address] [address] [address] Sea PughChloride [Moles/Vol]100 mmol/CTqxpyu63-793Fmq [facility] Comment on above:Performed By: #### HSTROPN, CMP, CRP #### [facility] [address] [place] [address] Dr. Sea PughCO2 [Moles/Vol]25.8 mmol/QYdcwdu66.0-32.0[facility] Comment on above:Performed By: #### HSTROPN, CMP, CRP #### [facility] [address] [address] [address] Sea PughCreatinine [Mass/Vol]1.12 mg/dLNormal0.70-1.30The [facility] HospitalComment on above:Performed By: #### HSTROPN, CMP, CRP #### [facility] [address] [place] [address] Dr. Sea FordGFR-AF LITHUANIAN>60Normal>=60The [facility] Hospitalment on above:Performed By: #### HSTROPN, CMP, CRP #### [facility] [address] [place] [address] Dr. Sea FordGFR-NON AF LITHUANIAN>60Normal>=60The [facility] HospitalComment on above:Performed By: #### HSTROPN, CMP, CRP #### [facility] [address] [place] [address] Dr. Sea PughGlucose [Mass/Vol]201 mg/dLCritically gllq37-955Crd [facility] HospitalComment on above:Performed By: #### HSTROPN, CMP, CRP #### [facility] [address] [address] [address] Sea PughPotassium [Moles/Vol]3.3 mmol/LCritically low3.5-5.1The [facility] HospitalComment on above:Performed By: #### HSTROPN, CMP, CRP #### [facility] [address] [address] [address] Sea PughSodium [Moles/Vol]132 mmol/LCritically hss315-046Sjt [facility] HospitalComment on above:Performed By: #### HSTROPN, CMP, CRP #### [facility] [address] [address] [address] Sea PughUrea nitrogen [Mass/Vol]16.0 mg/dLNormal7.0-18.0The [facility] HospitalComment on above:Performed By: #### HSTROPN, CMP, CRP #### [facility] [address] [address] [address] Sea PughUrea nitrogen/Creatinine [Mass ratio]14.3 mg/mgNormalThe [facility] HospitalComment on above:Performed By: #### HSTROPN, CMP, CRP #### [facility] [address] [address] [address] Sea Montgomerysic Metabolic Panelon 78-52-0782Zjyrs gap [Moles/Vol]12 mmol/L9 - 17 mmol/LBON SECOURS MERCY HEALTHCalcium [Mass/Vol]8.3 mg/dLLow8.6 - 10.4 mg/dLBON SECOURS MERCY HEALTHChloride [Moles/Vol]100 mmol/L98 - 107 mmol/LBON SECOURS MERCY HEALTHCO2 [Moles/Vol]21 mmol/L20 - 31 mmol/LBON SECOURS MERCY HEALTHCreatinine [Mass/Vol]0.69 mg/dLLow0.7 - 1.2 mg/dLBON SECOURS MERCY HEALTH GFR >6060 - PINF mL/minBON SECOURS MERCY HEALTHGFR Non->6060 - PINF mL/minBON SECOURS MERCY HEALTHGFR/1.73 sq M.predicted MDRD (S/P/Bld) [Vol rate/Area][facility] CENTERComment on above:Average GFR for 70 or more years old: 75 mL/min/1.73sq m Chronic Kidney Disease: <60 mL/min/1.73sq m Kidney failure: <15 mL/min/1.73sq m eGFR calculated using average adult body mass. Additional eGFR calculator available at: http://www.[employer]/multiple_crcl_2011.htm Glucose [Mass/Vol]138 mg/tJLqzs85 - 99 mg/dLBON [facility]. [facility] Interpretation and review of laboratory resultsAbnormalCLINCH VALLEY MEDICAL CENTER Potassium [Moles/Vol]4.0 mmol/L3.7 - 5.3 mmol/LBON [address] JOHN OF GOD HOSPITALSodium [Moles/Vol]133 mmol/NWrj919 - 144 mmol/LBON ST[address] JOHN OF GOD HOSPITALUrea nitrogen (BldV) [Mass/Vol]12 mg/dL8 - 23 mg/dLBON CHILDREN'S CARE HOSPITAL AND SCHOOLBasic Metabolic Profon 12-04-2021(cont.)NormalMercy Health Perrysburg HospitalComment on above:Result Comment: Average GFR for 70 or more years old: 75 mL/min/1.73sq m Chronic Kidney Disease: <60 mL/min/1.73sq m Kidney failure: <15 mL/min/1.73sq m eGFR calculated using average adult body mass. Additional eGFR calculator available at: http://www.[employer]/multiple_crcl_2011.htmPerformed By: #### DALE MALDONADO, CDP #### [facility] [address] [id number] Piano Regulator: Afshin Mansfield MDAnion gap [Moles/Vol]12 mmol/LNormal9-17[facility] HospitalComment on above:Performed By: #### DALE MALDONADO, CDP #### [facility] [address] [place], [place] [id number] Piano Regulator: WOODROW Westfallalcium [Mass/Vol]8.3 mg/dLLow8.6-10.4[facility] HospitalComment on above:Performed By: #### DALE MALDONADO, CDP #### [facility] [address] [place] [address] Piano Regulator: WOODROW Westfallhloride [Moles/Vol]100 mmol/NShugiw60-941EcjimMercy Health Perrysburg HospitalComment on above:Performed By: #### DALE MALDONADO, CDP #### [facility] [address] [place] [address] Piano Regulator: Afshin Mansfield MDCO2 [Moles/Vol]21 mmol/KBqqeny95-05XjttrMercy Health Perrysburg HospitalComment on above:Performed By: #### DALE MALDONADO, CDP #### [facility] [address] [place] [id number] Piano Regulator: WOODROW Westfallreatinine [Mass/Vol]0.69 mg/dLLow0.70-1.20[facility] HospitalComment on above:Performed By: #### DALE MALDONADO, CDP #### [facility] [address] [place] [address] Piano Regulator: Afshin Mansfield MDGFR, Amer>60Normal>60[facility] HospitalComment on above:Performed By: #### DALE MALDONADO, CDP #### [facility] [address] [place] [address] Piano Regulator: Afshin Mansfield MDGFR,non Amer>60Normal>60[facility] HospitalComment on above:Performed By: #### DALE MALDONADO, CDP #### [facility] [address] [place] [address] Piano Regulator: Afshin Mansfield MDGlucose [Mass/Vol]138 mg/nJNpcs63-36EsruzShriners HospitalComment on above:Performed By: #### DALE MALDONADO, CDP #### [facility] [address] [place] [address] Piano Regulator: JOJO Westfallotassium [Moles/Vol]4.0 mmol/LNormal3.7-5.3 [facility] HospitalComment on above:Performed By: #### DALE MALDONADO, CDP #### [facility] [address] [place] [address] Piano Regulator: KRISTIAN Westfallodium [Moles/Vol]133 mmol/SKwl825-081QszriMercy Health Perrysburg HospitalComment on above:Performed By: #### DALE MALDONADO, CDP #### [facility] [address] [place] [address] Piano Regulator: Afshin Mansfield MDUrea nitrogen [Mass/Vol]12 mg/dLNormal8-23[facility] HospitalComment on above:Performed By: #### DALE MALDONADO, CDP #### [facility] [address] [place] [id number] Piano Regulator: Afshin Mansfield [facility] – STILLWATERBC with Auto Differentialon 46-01-7289Fazsrkdj Eos #0.64HighBON SECOURS MERCY HEALTHAbsolute Immature Granulocyte0.06[facility] HEALTHAbsolute Lymph #1.09LowBON SECOURS MERCY HEALTHAbsolute [place] #1.29HighBON SECOURS MERCY HEALTHBasophils (Bld) [#/Vol]0.04 10*3/uLBON SECOURS MERCY HEALTHBasophils/100 WBC (Bld)0 %0 - 2 %[facility] Eosinophils/100 WBC (Bld)6 %High1 - 4 %[facility]CY HEALTHHematocrit (Bld) [Volume fraction]36.1 %Low40.7 - 50.3 %[facility] HEALTHHemoglobin (Bld) [Mass/Vol]12.6 g/dLLow13 - 17 g/dLBON SECOURS MERCY HEALTHImmature granulocytes/100 WBC (Bld)1 %Ttgf4BSC SECOURS MERCY HEALTHInterpretation and review of laboratory resultsAbnormalBON SECOURS MERCY HEALTHLymphocytes/100 WBC (Bld)9 %Low24 - 43 %BON [facility] MEDICAL CENTERH (RBC) [Entitic mass]30.1 pg25.2 - 33.5 pgBON ADENA REGIONAL MEDICAL CENTERHC (RBC) [Mass/Vol]34.9 g/eIIpdq12.4 - 34.8 g/dLBON SECWILSON STREET HOSPITALV (RBC) [Entitic vol]86.2 fL82.6 - 102.9 fLCLINCH VALLEY MEDICAL CENTERMonocytes/100 WBC (Bld)11 %3 - 12 %[facility] NRBC Automated0.00.[address] JOHN OF GOD HOSPITALPlatelet distribution width (Bld) [Ratio]13.6 %11.8 - 14.4 %[facility] [facility] GOD HOSPITALPlatelet mean volume (Bld) [Entitic vol]9.8 fL8.1 - 13.5 fLBON MONROVIA COMMUNITY [facility]OSPITAL HEALTHPlatelets (Bld) [#/Vol]212 10*3/uLBON ST. JOHN OF GOD HOSPITALRBC (Bld) [#/Vol]4.19 10*6/uLLow 4.21 - 5.77 m/uLCLINCH VALLEY MEDICAL CENTERSegmented neutrophils/100 WBC (Bld)73 % High36 - 65 %B[facility] JOHN OF GOD HOSPITALSegs Absolute8.59HighBON ST. JOHN OF GOD HOSPITALWBC (Bld) [#/Vol]11.7 10*3/uLHighBON CHILDREN'S CARE HOSPITAL AND SCHOOLCBC with Diffon [id number]. Basophil0.04 k/uLNormal0.00-0.20[facility] HospitalComment on above:Performed By: #### DALE MALDONADO, CDP #### [employer] [facility] [address] [place], [place] [id number] Piano Regulator: Virgil Westfall.Imm.Granulocyte0.06 k/uLNormal0.00-0.30[facility] Perrysburg HospitalComment on above:Performed By: #### DALE MALDNOADO, CDP #### [facility] [address] [place], [place] [id number] Piano Regulator: Virgil Westfall.Neutrophil (Seg)8.59 k/uLHigh1.50-8.10Mer[facility] Perrysburg HospitalComment on above:Performed By: #### DALE MALDONADO, CDP #### [facility] [address] [place] [address] Piano Regulator: Afshin Mansfield MDBasophils/100 WBC (Bld)0 %Normal0-2MElastar Community HospitalComment on above:Performed By: #### DALE MALDONADO, CDP #### [facility] [address] [place] [address] Piano Regulator: Afshin Mansfield MDEosinophils (Bld) [#/Vol]0.64 10*3/uLHigh 0.00-0.44[facility] HospitalComment on above:Performed By: #### DALE MALDONADO, CDP #### [facility] [address] [place] [address] Piano Regulator: MINERVA Wsetfallosinophils/100 WBC (Bld)6 %High1-4[facility] Perrysburg HospitalComment on above:Performed By: #### DALE MALDONADO, CDP #### [facility] [address] [place] [address] Piano Regulator: Afshin Mansfield MDErythrocyte distribution width (RBC) [Ratio]13.6 %Lgfnmt82.8-14.4[facility] HospitalComment on above:Performed By: #### DALE MALDONADO, CDP #### [facility] [address] [place] [address] Piano Regulator: Afshin Mansfield MDHematocrit (Bld) [Volume fraction]36.1 %Low 40.7-50.3MElastar Community HospitalComment on above:Performed By: #### DALE MALDONADO, CDP #### [facility] [address] [place] [address] Piano Regulator: Afshin Mansfield MDHemoglobin (Bld) [Mass/Vol]12.6 g/dLLow13.0-17.0 [facility] HospitalComment on above:Performed By: #### DALE MALDONADO, CDP #### [facility] [address] [place] [address] Piano Regulator: Afshin Mansfield MDImmature granulocytes/100 WBC (Bld)1 %Qggm7AaudqMercy Health Perrysburg HospitalComment on above:Performed By: #### DALE MALDONADO, CDP #### [facility] [address] [place] [address] Piano Regulator: Afshin Mansfield MDLymphocytes (Bld) [#/Vol]1.09 10*3/uLLow 1.10-3.70[facility] HospitalComment on above:Performed By: #### DALE MALDONADO, CDP #### [facility] [address] [place] [address] Piano Regulator: Vijay Westfallmphocytes/100 WBC (Bld)9 %Wlt39-04MknobMercy Health Perrysburg HospitalComment on above:Performed By: #### DALE MALDONADO, CDP #### [facility] [address] [place] [address] Piano Regulator: BRITTANY WestfallCH (RBC) [Entitic mass]30.1 uiSuvkfw48.2-33.5 [facility] HospitalComment on above:Performed By: #### DALE MALDONADO, CDP #### [facility] [address] [place] [address] Piano Regulator: CONNIE WestfallC (RBC) [Mass/Vol]34.9 g/jMIfqq43.4-34.8[facility] HospitalComment on above:Performed By: #### DALE MALDONADO, CDP #### [facility] [address] [place] [address] Piano Regulator: BRITTANY WestfallCV (RBC) [Entitic vol]86.2 gVAeaiwy87.6-102.9 [facility] HospitalComment on above:Performed By: #### DALE MALDONADO, CDP #### [address] [address] Piano Regulator: BRITTANY Westfallonocytes (Bld) [#/Vol]1.29 10*3/uLHigh0.10-1.20 [facility] HospitalComment on above:Performed By: #### DALE MALDONADO, CDP #### [facility] [address] [place] [address] Piano Regulator: BRITTANY Westfallonocytes/100 WBC (Bld)11 %Normal3-12[facility] HospitalComment on above:Performed By: #### DALE MALDONADO, CDP #### [facility] [address] [place] [address] Piano Regulator: Pravin Westfallophil (Seg)73 %Psnn90-81ZiilgMercy Health Perrysburg HospitalComment on above:Performed By: #### DALE MALDONADO, CDP #### [facility] [address] [place] [address] Piano Regulator: Afshin Mansfield MDNRBC Automated0.0 per 100 WBCNormal0.0[facility] HospitalComment on above:Performed By: #### DALE MALDONADO, CDP #### [facility] [address] [place] [address] Piano Regulator: JOJO Westfalllatelet mean volume (Bld) [Entitic vol]9.8 fL Normal8.1-13.5[facility] HospitalComment on above:Performed By: #### DALE MALDONADO, CDP #### [facility] [address] [place] [address] Piano Regulator: JOJO Westfalllatelets (Bld) [#/Vol]212 10*3/jKRscian542-166 [facility] HospitalComment on above:Performed By: #### DALE MALDONADO, CDP #### [facility] [address] [place] [address] Piano Regulator: KEIKO WestfallBC (Bld) [#/Vol]4.19 10*6/uLLow4.21-5.77[facility] HospitalComment on above:Performed By: #### DALE MALDONADO, CDP #### [facility] [address] [place] [address] Piano Regulator: XANDER Westfall (Bld) [#/Vol]11.7 10*3/uLHigh3.5-11.3MElastar Community HospitalComment on above:Performed By: #### DALE MALDONADO, CDP #### [facility] [address] [place] [address] Piano Regulator: JEANETTE Westfall Glucose Fingerstickon 80-95-7677Mfuemwq [Mass/Vol]110 mg/dL75 - 110 mg/dLBON ST. JOHN OF GOD HOSPITALBON ST. JOHN OF GOD HOSPITALBasic Metabolic Panelon 88-35-3331Nwlgn gap [Moles/Vol]14 mmol/L9 - 17 mmol/LBON SECPROMEDICA MEMORIAL HOSPITALCalcium [Mass/Vol]8.0 mg/dLLow8.6 - 10.4 mg/dLBON SECOURS [facility] HOSPITALChloride [Moles/Vol]101 mmol/L98 - 107 mmol/LBON SECOURS [facility]ALTH RIVERSIDE METHODIST HOSPITALCO2 [Moles/Vol]18 mmol/LLow20 - 31 mmol/LBON SECPROMEDICA MEMORIAL [facility]ITAL Creatinine [Mass/Vol]0.67 mg/dLLow0.7 - 1.2 mg/dLBON SECPROMEDICA MEMORIAL HOSPITALGFR >6060 - PINF mL/minBON SECOURS [facility] HEALTHGFR Non->6060 - PINF mL/minBON SEC[facility]RS [facility] HEALTHGFR/1.73 sq M.predicted MDRD (S/P/Bld) [Vol rate/Area][facility] CENTERComment on above:Average GFR for 70 or more years old: 75 mL/min/1.73sq m Chronic Kidney Disease: <60 mL/min/1.73sq m Kidney failure: <15 mL/min/1.73sq m eGFR calculated using average adult body mass. Additional eGFR calculator available at: http://www.Ewireless/multiple_crcl_2011.htm Glucose [Mass/Vol]156 mg/nAUuwt05 - 99 mg/dLBON [facility]. [facility] Interpretation and review of laboratory resultsAbnormalCLINCH VALLEY MEDICAL [facility]ENTER Potassium [Moles/Vol]3.9 mmol/L3.7 - 5.3 mmol/LBON ST. JOHN OF GOD HOSPITALSodium [Moles/Vol]133 mmol/TZlc250 - 144 mmol/LBON ST[address] JOHN OF GOD HOSPITALUrea nitrogen (BldV) [Mass/Vol]12 mg/dL8 - 23 mg/dLBON CHILDREN'S CARE HOSPITAL AND SCHOOLBasic Metabolic Profon 12-03-2021(cont.)NormalMercy Health Perrysburg HospitalComment on above:Result Comment: Average GFR for 70 or more years old: 75 mL/min/1.73sq m Chronic Kidney Disease: <60 mL/min/1.73sq m Kidney failure: <15 mL/min/1.73sq m eGFR calculated using average adult body mass. Additional eGFR calculator available at: http://www.Ewireless/[employer]_crcl_2011.htmPerformed By: #### DALE MALDONADO, CDP #### [facility] [address] [place], [place] [id number] Piano Regulator: Byron Westfall gap [Moles/Vol]14 mmol/LNormal9-17[facility] HospitalComment on above:Performed By: #### DALE MALDONADO, CDP #### [facility] [address] [place] [address] Piano Regulator: Afshin Madoff, MDCalcium [Mass/Vol]8.0 mg/dLLow8.6-10.4[facility] HospitalComment on above:Performed By: #### DALE MALDONADO, CDP #### [facility] [address] [place] [address] Piano Regulator: WOODROW Westfallhloride [Moles/Vol]101 mmol/ISytbaj01-731WuuwiMercy Health Perrysburg HospitalComment on above:Performed By: #### DALE MALDONADO, CDP #### [facility] [address] [place] [address] Piano Regulator: Afshin Mansfield MDCO2 [Moles/Vol]18 mmol/JDbz81-10BmjgkMercy Health Perrysburg HospitalComment on above:Performed By: #### DALE MALDONADO, CDP #### [facility] [address] [place] [address] Piano Regulator: WOODROW Westfallreatinine [Mass/Vol]0.67 mg/dLLow0.70-1.20[facility] HospitalComment on above:Performed By: #### DALE MALDONADO, CDP #### [facility] [address] [place] [address] Piano Regulator: Afshin Mansfield MDGFR, Amer>60Normal>60[facility] HospitalComment on above:Performed By: #### DALE MALDONADO, CDP #### [facility] [address] [place] [address] Piano Regulator: Afshin Mansfield MDGFR,non Amer>60Normal>60[facility] HospitalComment on above:Performed By: #### DALE MALDONADO, CDP #### [facility] [address] [place] [address] Piano Regulator: Afshin Mansfield MDGlucose [Mass/Vol]156 mg/uCMxut28-13YbuyfShriners HospitalComment on above:Performed By: #### DALE MALDONADO, CDP #### [facility] [address] [place] [address] Piano Regulator: JOJO Westfallotassium [Moles/Vol]3.9 mmol/LNormal3.7-5.3 [facility] HospitalComment on above:Performed By: #### DALE MALDONADO, CDP #### [facility] [address] [place] [address] Piano Regulator: Afshin Mansfield MDSodium [Moles/Vol]133 mmol/EGoc592-993CbklkMercy Health Perrysburg HospitalComment on above:Performed By: #### DALE MALDONADO, CDP #### [facility] [address] [place] [address] Piano Regulator: Afshin Mansfield MDUrea nitrogen [Mass/Vol]12 mg/dLNormal8-23[facility] HospitalComment on above:Performed By: #### DALE MALDONADO, CDP #### [facility] [place] [address] Piano Regulator: Afshin Mansfield [facility] with Auto Differentialon 05-95-8497Pmadzgbg Eos #0.54HighBON SECOURS MERCY HEALTHAbsolute Immature Granulocyte0.07B[facility] MERCY HEALTHAbsolute Lymph #1.07LowBON SECOURS MERCY HEALTHAbsolute [place] #1.20B[facility] MERCY HEALTHBasophils (Bld) [#/Vol]0.03 10*3/uLBON SECOURS MERCY HEALTHBasophils/100 WBC (Bld)0 %0 - 2 %[facility] Eosinophils/100 WBC (Bld)5 %High1 - 4 %[facility]CY HEALTHHematocrit (Bld) [Volume fraction]37.0 %Low40.7 - 50.3 %[facility] MERCY HEALTHHemoglobin (Bld) [Mass/Vol]13.1 g/dL13 - 17 g/dLBON SECOURS MERCY HEALTHImmature granulocytes/100 WBC (Bld)1 %Yhjp5PNE ST. JOHN OF GOD HOSPITALInterpretation and review of laboratory resultsAbnormalBON ST. JOHN OF GOD HOSPITALLymphocytes/100 WBC (Bld)10 % Low24 - 43 %BON [facility]DE[facility]ION[facility] MEDICAL CENTERH (RBC) [Entitic mass]30.8 pg25.2 - 33.5 pgBON ADENA REGIONAL MEDICAL CENTERHC (RBC) [Mass/Vol]35.4 g/cUEcet27.4 - 34.8 g/dLBON SECWILSON STREET HOSPITALV (RBC) [Entitic vol]87.1 fL82.6 - 102.[address] JOHN OF GOD HOSPITALMonocytes/100 WBC (Bld)11 %3 - 12 %B[facility] OF GOD HOSPITALNRBC Automated0.00.0 per 100 WBCCLINCH VALLEY MEDICAL CENTERPlatelet distribution width (Bld) [Ratio]13.7 %11.8 - 14.4 %[facility] [address] [facility] OF GOD HOSPITALPlatelet mean volume (Bld) [Entitic vol]10.6 fL8.1 - 13.5 fLRIVERSIDE HEALTH SYSTEM HEALTHPlatelets (Bld) [#/Vol]223 10*3/uLBON ST. JOHN OF GOD HOSPITALRBC (Bld) [#/Vol]4.25 10*6/uL4.21 - 5.77 m/uLCLINCH VALLEY MEDICAL CENTERSegmented neutrophils/100 WBC (Bld)73 %High36 - 65 %BON [facility] JOHN OF GOD HOSPITALSegs Absolute8.06BON ST[facility] JOHN OF GOD HOSPITALWBC (Bld) [#/Vol]11.0 10*3/uLBON CHILDREN'S CARE HOSPITAL AND SCHOOLCBC with Diff on 68-85-0560Tok. Basophil0.03 k/uLNormal0.00-0.20[facility] HospitalComment on above:Performed By: #### DALE MALDONADO CDP #### [facility] [address] [place], [place] [id number] Piano Regulator: Virgil Westfall.Imm.Granulocyte0.07 k/uLNormal0.00-0.30[facility] HospitalComment on above:Performed By: #### DALE MALDONADO CDP #### [facility] [address] [place] [address] Piano Regulator: Virgil Westfall.Neutrophil (Seg)8.06 k/uLNormal1.50-8.10 [facility] HospitalComment on above:Performed By: #### DALE MALDONADO, CDP #### [address] [address] Piano Regulator: Afshin Mansfield MDBasophils/100 WBC (Bld)0 %Normal0-2MElastar Community HospitalComment on above:Performed By: #### DALE MALDONADO, CDP #### [address] [address] Piano Regulator: Afshin Mansfield MDEosinophils (Bld) [#/Vol]0.54 10*3/uLHigh 0.00-0.44[facility] HospitalComment on above:Performed By: #### DALE MALDONADO, CDP #### [facility] [address] [place] [address] Piano Regulator: MINERVA Westfallosinophils/100 WBC (Bld)5 %High1-4[facility] HospitalComment on above:Performed By: #### DALE MALDONADO, CDP #### [facility] [address] [place] [address] Piano Regulator: Afshin Mansfield MDErythrocyte distribution width (RBC) [Ratio]13.7 %Vegbsu13.8-14.4[facility] HospitalComment on above:Performed By: #### DALE MALDONADO, CDP #### [facility] [address] [place] [address] Piano Regulator: Afshin Mansfield MDHematocrit (Bld) [Volume fraction]37.0 %Low 40.7-50.3MercShriners HospitalComment on above:Performed By: #### DALE MALDONADO, CDP #### [facility] [address] [place] [address] Piano Regulator: Afshin Mansfield MDHemoglobin (Bld) [Mass/Vol]13.1 g/dLNormal 13.0-17.0[facility] HospitalComment on above:Performed By: #### DALE MALDONADO, CDP #### [facility] [address] [place] [address] Piano Regulator: Afshin Mansfield MDImmature granulocytes/100 WBC (Bld)1 %Jmmg9JjkkhMercy Health Perrysburg HospitalComment on above:Performed By: #### DALE MALDONADO, CDP #### [facility] [address] [place] [address] Piano Regulator: Afshin Mansfield MDLymphocytes (Bld) [#/Vol]1.07 10*3/uLLow 1.10-3.70[facility] HospitalComment on above:Performed By: #### DALE MALDONADO, CDP #### [facility] [address] [place] [address] Piano Regulator: Vijay Westfallmphocytes/100 WBC (Bld)10 %Idu99-08LfrmhMercy Health Perrysburg HospitalComment on above:Performed By: #### DALE MALDONADO, CDP #### [facility] [address] [place] [address] Piano Regulator: BRITTANY WestfallCH (RBC) [Entitic mass]30.8 ikOtfrun73.2-33.5 [facility] HospitalComment on above:Performed By: #### DALE MALDONADO, CDP #### [facility] [address] [place] [address] Piano Regulator: BRITTANY WestfallCHC (RBC) [Mass/Vol]35.4 g/uCPcbg19.4-34.8[facility] HospitalComment on above:Performed By: #### DALE MALDONADO, CDP #### [facility] [address] [place] [address] Piano Regulator: BRITTANY WestfallCV (RBC) [Entitic vol]87.1 xWHqxwca86.6-102.9 [facility] HospitalComment on above:Performed By: #### DALE MALDONADO, CDP #### [facility] [address] [place] [address] Piano Regulator: BRITTANY Westfallonocytes (Bld) [#/Vol]1.20 10*3/uLNormal 0.10-1.20[facility] HospitalComment on above:Performed By: #### DALE MALDONADO, CDP #### [facility] [address] [place] [address] Piano Regulator: BRITTANY Westfallonocytes/100 WBC (Bld)11 %Normal3-12[facility] HospitalComment on above:Performed By: #### DALE MALDONADO, CDP #### [address] [address] Piano Regulator: Pravin Westfallophil (Seg)73 %Crtk75-72HgxnlMercy Health Perrysburg HospitalComment on above:Performed By: #### DALE MALDONADO, CDP #### [facility] [address] [place] [address] Piano Regulator: MARIE Westfall Automated0.0 per 100 WBCNormal0.0[facility] HospitalComment on above:Performed By: #### DALE MALDONADO, CDP #### [facility] [address] [place] [address] Piano Regulator: JOJO Westfalllatelet mean volume (Bld) [Entitic vol]10.6 fL Normal8.1-13.5[facility] HospitalComment on above:Performed By: #### DALE MALDONADO, CDP #### [facility] [address] [place] [address] Piano Regulator: Chilango Westfall ([facility]) [#/Vol]223 10*3/aRDshsxh633-550 [facility] HospitalComment on above:Performed By: #### DALE MALDONADO, CDP #### [facility] [address] [place] [address] Piano Regulator: KEIKO Westfall ([facility]) [#/Vol]4.25 10*6/uLNormal4.21-5.77 [facility] HospitalComment on above:Performed By: #### DALE MALDONADO, CDP #### [facility] [address] [place] [address] Piano Regulator: XANDER Westfall ([facility]) [#/Vol]11.0 10*3/uLNormal3.5-11.3MElastar Community HospitalComment on above:Performed By: #### DALE MALDONADO, CDP #### [facility] [address] [place] [address] Piano Regulator: Vanessa Westfall,Bloodon 75-47-6445Cpts,BloodSpecimen Description .BLOOD Special Requests L HAND 20ML Culture NO GROWTH 5 DAYS Report Status FINAL 12/03/2021[facility] HospitalComment on above:Performed By: #### BC #### [facility] [address] [place] [address] Piano Regulator: Vanessa Westfall,BloodSpecimen Description .BLOOD Special Requests r hand 20ml Culture NO GROWTH 5 DAYS Report Status FINAL 12/03/2021[facility] HospitalComment on above:Performed By: #### DALE MALDONADO, CDP #### [facility] [address] [place] [address] Piano Regulator: Afshin Mansfield [facility] STILLWATERulture, Blood 1on 88-32-8228Isjluitn identified Cx Nom (Unsp spec)NO GROWTH 5 DAYSBON SECLEGACY HEALTHY HEALTHSpecial RequestsL HAND 20MLBON SECWellRight [facility] RITA'S MEDICAL CENTERAptana HEALTHSpecimen Description.BLOODBON [facility] HEALTHBacteria identified Cx Nom (Unsp spec)NO GROWTH 5 DAYSBON SECOCHSNER MEDICAL CENTER HEALTHSpecial Requestsr hand 20mlBON [facility] HEALTH Specimen Description.BLOODINOVA FAIR OAKS [facility]OSPITAL HEALTHEKG 12 LeadOrdered By: Unknown Result on 91-48-4110Weufwv Vmlx02JNKPJR SECLEGACY HEALTHAptana HEALTHQ-T Gkduwmjm242 msBON SECOURS MERCY HEALTH ST. RITA'S MEDICAL CENTERAptana HEALTHQRS Mucmvsuy24 msBON [address] [facility] HEALTHQTc Calculation (Bazett)516 msBON SECLEGACY HEALTHY HEALTHR Axis23 degreesBON [facility] HEALTHT Xlee05mlpwzzsWWA [facility] HEALTH Ventricular Fvxc99UQHVFZ [facility] HEALTHEKG 12 Lead on 90-01-0413Hkbxyt flutter with variable block Premature supraventricular complexes [...] ST no longer depressed in Anterior leads COMMUNITY HEALTH SYSTEMSRDA [employer] Work Phone: Osmolality, Urineon 46-28-8640Fjdeylggkw - Kxpwm524 mOsm/eoAwuhik78-2097Ldedd St Luke Medical CenterComment on above:Performed By: #### IOCAL, BMP, CDP #### [facility] [address] [place] [address] Piano Regulator: Afshin Mansfield MDOsmolality, Rw188CRT CHILDREN[facility]S CARE HOSPITAL AND SCHOOLPOC Glucose Fingerstickon 51-30-0780Pwkfflm [Mass/Vol]151 mg/fSZikl51 - 110 mg/dLBON ST. JOHN OF GOD HOSPITALInterpretation and review of laboratory resultsAbnormalVALLEY HEALTH Glucose [Mass/Vol]172 mg/uORjyo68 - 110 mg/dLB[facility] Interpretation and review of laboratory resultsAbnormalBON ST[facility]ITAL B[facility] GOD HOSPITALGlucose [Mass/Vol]160 mg/cHMlub00 - 110 mg/dLB[address] ST[address] JOHN OF GOD HOSPITALInterpretation and review of laboratory resultsAbnormalVALLEY HEALTHSODIUM, URINE, RANDOMon 89-04-4940Womldc (U) [Moles/Vol]154 mmol/LBON ST. JOHN OF GOD HOSPITALComment on above:No normal range established.BON ST. JOHN OF GOD HOSPITALSodium, Random Uron 48-31-9570Eytiyu (U) [Moles/Vol]154 mmol/LNormalMercy Health Perrysburg HospitalComment on above: Result Comment: No normal range established.Performed By: #### IOCAL, BMP, CDP #### [facility] [address] [place], [place] [id number] Piano Regulator: Afshin Mansfield MDEKG 12 LeadOrdered By: Huan Mayo on 20-64-8523Gkvsgy Avow520CH[facility] [employer] Work Phone: Q-T [id number] [facility] HEALTH Work Phone: QRS Ejcrttmo61 msBOSTON CITY HOSPITALWellRight [facility] HEALTH Work Phone: QTc Calculation (Tktt)470 msBON SECOCHSNER MEDICAL CENTER HEALTH Work Phone: R [id number] HEALTH SYSTEM [employer] Work Phone: T George-59degreesRIVERSIDE HEALTH SYSTEM HEALTH Work Phone: Ventricular [id number] [employer] Work Phone: BON [employer] Work Phone: ekG 12 Leadon 34-25-0440Nelzsz fibrillation with rapid ventricular response with premature ventricular or aberrantly conducted complexes Low voltage QRS 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) ACUTE NM / STEMI Consider right ventricular involvement in acute inferior infarct Abnormal ECG When compared with ECG of 02-DEC-2021 03:02, T wave inversion no longer evident in Inferior leadsPN ST Huan Thrasher MD - 12/02/2021 Atrial fibrillation with rapid ventricular response with premature ventricular or aberrantly conducted complexes Low voltage QRS 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) ACUTE NM / STEMI Consider right ventricular involvement in acute inferior infarct Abnormal ECG When compared with ECG of 02-DEC-2021 03:02, T wave inversion no longer evident in Inferior leads [facility] CITY HOSPITALRidley Work Phone: Magnesiumon 08-74-8174Cugsttyxd [Mass/Vol]2.0 mg/dL Normal1.6-2.6Mercy St Luke Medical CenterComment on above:Performed By: #### JOEL, BMP, CDP #### [facility] [address] [place], [place] [id number] Piano Regulator: Afshin Mansfield MDMagnesium [Mass/Vol]2.0 mg/dL1.6 - 2.6 mg/dLBON [facility] [employer] SoftwareNo Panel Informationon 32-70-3839NJB [facility] Glucose Fingerstickon 75-72-6773Okhlnou [Mass/Vol]164 mg/vTJkvw48 - 110 mg/dL [facility] [employer] SoftwareInterpretation and review of laboratory resultsAbnormal VALLEY HEALTHGlucose [Mass/Vol]220 mg/dLHigh 75 - 110 mg/dLB[facility] [employer] SoftwareInterpretation and review of laboratory resultsAbnormalVALLEY HEALTHGlucose [Mass/Vol]197 mg/bEXfyh01 - 110 mg/dLBON ST. JOHN OF GOD HOSPITALInterpretation and review of laboratory resultsAbnormalBON CHILDREN'S CARE HOSPITAL AND SCHOOLGlucose [Mass/Vol]188 mg/qMCynk40 - 110 mg/dLB[facility] Interpretation and review of laboratory resultsAbnormalCLINCH VALLEY [facility] BON ST. JOHN OF GOD HOSPITALPhosphoruson 16-31-4259Snoouwldn [Mass/Vol]2.8 mg/dL2.5 - 4.5 mg/dLBON ST. JOHN OF GOD HOSPITALPhosphorus, Inorg.on 15-62-4022Kuxprdogwz, Inorg.2.8 mg/dLNormal2.5-4.5[facility] HospitalComment on above: Performed By: #### DALE MALDONADO, CDP #### [facility] [address] [place] [id number] Piano Regulator: Binta Westfall 21-56-9347Rqyjyjom, High Sens15 ng/L Normal0-75Mer[facility] HospitalComment on above:Result Comment: High Sensitivity Troponin values cannot be compared with other Troponin methodologies. Patients with high levels of Biotin oral intake (i.e >5mg/day) may have falsely decreased Troponin levels. Samples collected within 8 hours of biotin intake may require additional information for diagnosis.Performed By: #### DALE MALDONADO, CDP #### [facility] [address] [place] [address] [phone] Piano Regulator: Quinton Westfall High Rqlbotkeajb18 ng/L0 - 22 ng/LBON [facility] GOD HOSPITALComment on above: High Sensitivity Troponin values cannot be compared with other Troponin methodologies. Patients with high levels of Biotin oral intake (i.e >5mg/day) may have falsely decreased Troponin levels. Samples collected within 8 hours of biotin intake may require additional information for diagnosis. [facility] HEALTHTroponin, High Sens15 ng/LNormal0-22Mer[facility] Health Perrysburg HospitalComment on above:Result Comment: High Sensitivity Troponin values cannot be compared with other Troponin methodologies. Patients with high levels of Biotin oral intake (i.e >5mg/day) may have falsely decreased Troponin levels. Samples collected within 8 hours of biotin intake may require additional information for diagnosis.Performed By: #### JOEL, BMP, CDP #### [facility] [address] [id number] Piano Regulator: Quinton Westfall, High Lwfqdugprbq90 ng/L0 - 22 ng/LBON SECRidleyComment on above: High Sensitivity Troponin values cannot be compared with other Troponin methodologies. Patients with high levels of Biotin oral intake (i.e >5mg/day) may have falsely decreased Troponin levels. Samples collected within 8 hours of biotin intake may require additional information for diagnosis. [facility] TigerTextBasic Metabolic Panelon [id number] gap [Moles/Vol] 11 mmol/L9 - 17 mmol/LBON SECOURS InfernoRed TechnologyY HEALTHCalcium [Mass/Vol]8.1 mg/dLLow8.6 - 10.4 mg/dLBON SECOURS MERCY HEALTHChloride [Moles/Vol]102 mmol/L98 - 107 mmol/LBON SEC[facility]RS MERCY HEALTHCO2 [Moles/Vol]19 mmol/LLow20 - 31 mmol/LBON [facility] InfernoRed TechnologyY HEALTHCreatinine [Mass/Vol]0.76 mg/dL0.7 - 1.2 mg/dLBON SECOURS InfernoRed TechnologyY HEALTHGFR >6060 - PINF mL/minBON SECOURS InfernoRed TechnologyY HEALTHGFR Non->6060 - PINF mL/minBON SECOURS InfernoRed TechnologyY HEALTHGFR/1.73 sq M.predicted MDRD (S/P/Bld) [Vol rate/Area][facility] Intuitive User Interfaces [facility] on above:Average GFR for 70 or more years old: 75 mL/min/1.73sq m Chronic Kidney Disease: <60 mL/min/1.73sq m Kidney failure: <15 mL/min/1.73sq m eGFR calculated using average adult body mass. Additional eGFR calculator available at: http://www.Bloodhound.Infracommerce/multiple_crcl_2012.htm Glucose [Mass/Vol]176 mg/eUHirg94 - 99 mg/dLB[facility] Interpretation and review of laboratory resultsAbnormalCLINCH VALLEY MEDICAL [facility]ENTER Potassium [Moles/Vol]4.2 mmol/L3.7 - 5.3 mmol/LBON [facility] GOD HOSPITALSodium [Moles/Vol]132 mmol/JSqh101 - 144 mmol/LBON [facility] OF GOD HOSPITALUrea nitrogen (BldV) [Mass/Vol]16 mg/dL8 - 23 mg/dLBON CHILDREN'S CARE HOSPITAL AND SCHOOLBasic Metabolic Profon 12-01-2021(cont.)NormalMercy Health Perrysburg HospitalComment on above:Result Comment: Average GFR for 70 or more years old: 75 mL/min/1.73sq m Chronic Kidney Disease: <60 mL/min/1.73sq m Kidney failure: <15 mL/min/1.73sq m eGFR calculated using average adult body mass. Additional eGFR calculator available at: http://www.Ewireless/multiple_crcl_2011.htmPerformed By: #### CDP, BMP #### [facility] [address] [place] [id number] Piano Regulator: Byron Westfall gap [Moles/Vol]11 mmol/LNormal9-17Mer[facility] Perrysburg HospitalComment on above:Performed By: #### CDP, BMP #### [facility] [address] [place] [address] Piano Regulator: WOODROW Westfallalcium [Mass/Vol]8.1 mg/dLLow8.6-10.4Mer[facility] Perrysburg HospitalComment on above:Performed By: #### CDP, BMP #### [facility] [address] [place] [address] Piano Regulator: WOODROW Westfallhloride [Moles/Vol]102 mmol/ZDhjfrr04-839BdyglMercy Health Perrysburg HospitalComment on above:Performed By: #### CDP, BMP #### [facility] [address] [place] [address] Piano Regulator: Afshin Mansfield MDCO2 [Moles/Vol]19 mmol/TJom34-85YdnroMercy Health Perrysburg HospitalComment on above:Performed By: #### CDP, BMP #### [address] [address] Piano Regulator: Afshin Mansfield MDCreatinine [Mass/Vol]0.76 mg/dLNormal0.70-1.20 [facility] Perrysburg HospitalComment on above:Performed By: #### CDP, BMP #### [address] [address] Piano Regulator: Afshin Mansfield MDGFR, Amer>60Normal>60[facility] Perrysburg HospitalComment on above:Performed By: #### BEBO, BMP #### [address] [address] Piano Regulator: MELVIN Westfall,non Amer>60Normal>60Mer[facility] Perrysburg HospitalComment on above:Performed By: #### BEBO, BMP #### [address] [address] Piano Regulator: Afshin Mansfield MDGlucose [Mass/Vol]176 mg/lCBsos80-39LrimmShriners HospitalComment on above:Performed By: #### CDP, BMP #### [address] [address] Piano Regulator: Afshin Mansfield MDPotassium [Moles/Vol]4.2 mmol/LNormal3.7-5.3 [facility] Perrysburg HospitalComment on above:Performed By: #### CDP, BMP #### [address] [address] Piano Regulator: Afshin Mansfield MDSodium [Moles/Vol]132 mmol/MAdw437-314BvktnMercy Health Perrysburg HospitalComment on above:Performed By: #### CDP, BMP #### [facility] [address] [place] [address] Piano Regulator: Afshin Mansfield MDUrea nitrogen [Mass/Vol]16 mg/dLNormal81 Carter StreetComment on above:Performed By: #### CDP, BMP #### [facility] [address] [place], [place] [id number] Piano Regulator: Afshin Mansfield [facility] with Auto Differentialon [id number] Eos #0.00[facility] MERCY HEALTHAbsolute Immature Granulocyte0.00[facility]CY HEALTHAbsolute Lymph #1.35[facility] HEALTHAbsolute [place] #1.80High [facility] MERCY HEALTHBasophils (Bld) [#/Vol]0.00 [...] (Bld)9 %Low24 - 44 %[facility] HOSPITALH (RBC) [Entitic mass]30.5 pg25.2 - 33.5 pgBON SECOURS MERCY LICKING MEMORIAL HOSPITALHC (RBC) [Mass/Vol]34.5 g/dL28.4 - 34.8 g/dLBON SECOURS MERCY HEALTHV (RBC) [Entitic vol]88.5 fL82.6 - 102.9 fLBON SECOURS MERCY HEALTHMonocytes/100 WBC (Bld)12 %High1 - 7 %[facility] HEALTHMorphology Callum (Bld) [Interp]Normal [facility] MEDICAL CENTERNRBC Automated0.00.[address] [facility] Platelet distribution width (Bld) [Ratio]13.8 %11.8 - 14.4 %[facility] GOD HOSPITALPlatelet mean volume (Bld) [Entitic vol]9.6 fL8.1 - 13.[address] [facility] OF GOD HOSPITALPlatelets (Bld) [#/Vol]235 10*3/uLBON SECPROMEDICA MEMORIAL HOSPITALRBC (Bld) [#/Vol]5.11 10*6/uL4.21 - 5.77 m/uLBON ST. JOHN OF GOD HOSPITALSegmented neutrophils/100 WBC (Bld)79 %High36 - 66 %[facility] MEDICAL CENTERSegs Absolute 11.85HighBON ST. JOHN OF GOD HOSPITALWBC (Bld) [#/Vol]15.0 10*3/uLHighBON ST. JOHN OF GOD HOSPITALBON SECPROMEDICA MEMORIAL HOSPITALCBC with Diffon [id number]. Basophil0.00 k/uLNormal0.0-0.2MercShriners HospitalComment on above:Performed By: #### BEBO, BMP #### [facility] [address] [place] [address] Piano Regulator: Virgil Westfall.Imm.Granulocyte0.00 k/uLNormal0.00-0.30Mer[facility] Perry[facility] HospitalComment on above:Performed By: #### BEBO, BMP #### [facility] [address] [place] [address] Piano Regulator: MDAbs. MalouNeutrophil (Seg)11.85 k/uLHigh1.8-7.7Mer[facility] Perry[facility] HospitalComment on above:Performed By: #### BEBO, BMP #### [facility] [address] [place] [address] Piano Regulator: Afshin Mansfield MDBasophils/100 WBC (Bld)0 %Normal0-2MercShriners HospitalComment on above:Performed By: #### BEBO, BMP #### [facility] [address] [place] [address] Piano Regulator: Afshin Mansfield MDEosinophils (Bld) [#/Vol]0.00 10*3/uLNormal 0.0-0.4Mer[facility] Perry[facility] HospitalComment on above:Performed By: #### CDP, BMP #### [facility] [address] [place] [address] Piano Regulator: MINERVA Westfallosinophils/100 WBC (Bld)0 %Low1-4[facility] HospitalComment on above:Performed By: #### CDP, BMP #### [address] [address] Piano Regulator: Afshin Mansfield MDImmature granulocytes/100 WBC (Bld)0 %Normal0 [facility] Perry[facility] HospitalComment on above:Performed By: #### CDP, BMP #### [address] [address] Piano Regulator: Vijay Westfallmphocytes (Bld) [#/Vol]1.35 10*3/uLNormal 1.0-4.8[facility] Perry[facility] HospitalComment on above:Performed By: #### CDP, BMP #### [facility] [employer] [address] [place] [address] Piano Regulator: Vijay Westfallmphocytes/100 WBC (Bld)9 %Eir38-08MikjcMercy Health Perrysburg HospitalComment on above:Performed By: #### CDP, BMP #### [facility] [employer] [address] [place] [address] Piano Regulator: BRITTANY Westfallonocytes (Bld) [#/Vol]1.80 10*3/uLHigh0.1-0.8 [facility] HospitalComment on above:Performed By: #### CDP, BMP #### [facility] [address] [place] [address] Piano Regulator: BRITTANY Westfallonocytes/100 WBC (Bld)12 %High1-7Mer[facility] Perry[facility] HospitalComment on above:Performed By: #### CDP, BMP #### [facility] [address] [place] [address] Piano Regulator: BRITTANY Westfallorphology Callum (Bld) [Interp]NormalNormalMerCommunity Hospital of GardenaComment on above:Performed By: #### CDP, BMP #### [facility] [address] [place] [address] Piano Regulator: Afshin Mansfield MDNeutrophil (Seg)79 %Cfoa94-01TxujkMercy Health Perrysburg HospitalComment on above:Performed By: #### CDP, BMP #### [address] [address] Piano Regulator: Afshin Mansfield MDErythrocyte distribution width (RBC) [Ratio]13.8 %Bxzpvk02.8-14.4[facility] Perry[facility] HospitalComment on above:Performed By: #### CDP, BMP #### [facility] [address] [place] [address] Piano Regulator: Afshin Mansfield MDHematocrit (Bld) [Volume fraction]45.2 %Normal 40.7-50.3[facility] Medical CenterComment on above:Performed By: #### CDP, BMP #### [facility] [address] [place] [address] Piano Regulator: Afshin Mansfield MDHemoglobin (Bld) [Mass/Vol]15.6 g/dLNormal 13.0-17.0[facility] HospitalComment on above:Performed By: #### CDP, BMP #### [facility] [address] [place] [address] Piano Regulator: BRITTANY WestfallCH (RBC) [Entitic mass]30.5 abFxhavh42.2-33.5 [facility] HospitalComment on above:Performed By: #### CDP, BMP #### [address] [address] Piano Regulator: BRITTANY WestfallCHC (RBC) [Mass/Vol]34.5 g/gKAqupjm90.4-34.8 [facility] HospitalComment on above:Performed By: #### BEBO, BMP #### [address] [address] Piano Regulator: BRITTANY WestfallCV (RBC) [Entitic vol]88.5 jFPydkai80.6-102.9 [facility] HospitalComment on above:Performed By: #### BEBO, BMP #### [place] [address] Piano Regulator: VONDA WestfallBC Automated0.0 per 100 WBCNormal0.0[facility] Perry[facility] HospitalComment on above:Performed By: #### BEBO, BMP #### [address] [address] Piano Regulator: Ban Westfallteflor mean volume (Bld) [Entitic vol]9.6 fL Normal8.1-13.5[facility] Perry[facility] HospitalComment on above:Performed By: #### CDP, BMP #### [address] [address] Piano Regulator: JOJO Westfalllatelets (Bld) [#/Vol]235 10*3/vNPzmgsp713-864 [facility] HospitalComment on above:Performed By: #### BEBO, BMP #### [address] [address] Piano Regulator: KEIKO WestfallBC (Bld) [#/Vol]5.11 10*6/uLNormal4.21-5.77 [facility] HospitalComment on above:Performed By: #### CDP, BMP #### [facility] [address] [place] [address] Piano Regulator: Afshin Mansfield [facility] ([facility] [#/Vol]15.0 10*3/uLHigh3.5-11.3Mregional medical centery St Luke Medical CenterComment on above:Performed By: #### CDP, BMP #### [facility] [address] [place] [address] Piano Regulator: REYNA Westfall Complete 2D W Doppler W Coloron 12-01-2021 Transthoracic Echocardiography Report (TTE) Patient Name EDGAR Date of Study 11/30/2021 SHAHRZAD Date of 1945 Gender Male Age 76 year(s) Race Room Number 0122 Height: 73 inch, 185.42 cm Corporate ID [id number] Weight: 207 pounds, 93.9 kg # Patient Acct [id number] BSA: 2.18 m^2 BMI: 27.31 # kg/m^2 MR # [id number] [employer] Rosmery Walsh Interpreting Physician Vicki Rob Fellow Referring Nurse Practitioner Interpreting Referring Physician Yolie Cabrera Fellow Type of Study TTE procedure:2D Echocardiogram, M-Mode, Doppler, Color Doppler, Bubble Study. Procedure Date Date: 11/30/2021 Start: 02:35 PM Study Location: [facility] Technical Quality: Adequate visualization Indications:Stroke. [...] Height: 73 inch, 185.42 cm Corporate ID [id number] Weight: 207 pounds, 93.9 kg # Patient Acct [id number] BSA: 2.18 m^2 BMI: 27.31 # kg/m^2 MR # [id number] [employer] Rosmery Walsh Interpreting Physician Vicki Rob Fellow Referring Nurse Practitioner Interpreting Referring Physician Yolie Cabrera Type of Study TTE procedure:2D Echocardiogram, M-Mode, Doppler, Color Doppler, Bubble Study. Procedure Date Date: 11/30/2021 Start: 02:35 PM Study Location: [facility] Technical Quality: Adequate visualization Indications:Stroke. [...] E' velocity:0.12 m/s Lateral Wall E/E':7.[address] [facility] Work Phone: [facility] Work Phone: poc Glucose Fingerstickon [id number] [Mass/Vol] 132 mg/cTCqck40 - 110 mg/dLB[facility] ST. JOHN OF GOD HOSPITALInterpretation and review of laboratory resultsAbnoCoteau des Prairies Hospital Glucose [Mass/Vol]129 mg/lTJjil87 - 110 mg/dLB[facility] Interpretation and review of laboratory resultsAbnormDominion HospitalGlucose [Mass/Vol]369 mg/iIYidl26 - 110 mg/dLB[facility]. [facility] OF GOD HOSPITALInterpretation and review of laboratory resultsAbnormalVALLEY HEALTHGlucose [Mass/Vol]196 mg/pAYsts29 - 110 mg/dLB[address]. JOHN OF GOD HOSPITALInterpretation and review of laboratory results AbnormalVALLEY HEALTHGlucose [Mass/Vol]181 mg/oOWkim17 - 110 mg/dLB[address] [facility] OF GOD HOSPITALInterpretation and review of laboratory resultsAbnormDickenson Community Hospital Urinalysis w/ Microon 94-94-4391Oqanfdzre, SemiQt,UrNegativeNormalNEGMercy St Luke Medical CenterComment on above:Performed By: #### UAMIC #### [facility] [place] [address] Piano Regulator: Lia Westfall, UrineLARGEAbnormalNEGMercy Health Perrysburg HospitalComment on above:Performed By: #### UAMIC #### [address] [address] Piano Regulator: WOODROW Westfallasts2 TO 5 HYALINENormal0-8[facility] HospitalComment on above:Result Comment: Reference range defined for non- centrifuged specimen.Performed By: #### UAMIC #### [address] [address] Piano Regulator: WOODROW Westfalllarity (U)ClearNormalCLEARMerCommunity Hospital of GardenaComment on above:Performed By: #### UAMIC #### [address] [address] Piano Regulator: WOODROW Westfallolor (U)YellowNormalYELMerCommunity Hospital of GardenaComment on above:Performed By: #### UAMIC #### [address] [address] Piano Regulator: Afshin Mansfield MDEpithelial cells LM Ql (Urine sed)0 TO 2Normal 0-5[facility] HospitalComment on above:Performed By: #### UAMIC #### [address] [address] Piano Regulator: Afshin Mansfield MDGlucose Ql (U)NegativeNormalNEGMercy Health Perrysburg HospitalComment on above:Performed By: #### UAMIC #### [address] [address] Piano Regulator: Afshin Mansfield MDKetones Ql (U)TRACEAbnormalNEGMercy Health Perrysburg HospitalComment on above:Performed By: #### UAMIC #### [address] [address] Piano Regulator: Afshin Mansfield MDLeukocyte esterase Test strip Ql (U)Negative NormalNEGMercy Health Perrysburg HospitalComment on above:Performed By: #### UAMIC #### [address] [address] Piano Regulator: Rashard Westfalltrite,UrNegativeNormalNEGMercy Health Perrysburg HospitalComment on above:Performed By: #### UAMIC #### [address] [address] Piano Regulator: JOJO Westfall,Ur5.0Plvweb6.0-8.0[facility] HospitalComment on above:Performed By: #### UAMIC #### [address] [address] Piano Regulator: JOOJ Westfallrotein Ql (U)TRACEAbnormmsNEGMercy Health Perrysburg HospitalComment on above:Performed By: #### UAMIC #### [address] [address] Piano Regulator: KRISTIAN Westfallpec. [place],Ur1.747Ywmd6.005-1.030[facility] HospitalComment on above:Performed By: #### UAMIC #### [address] [address] Piano Regulator: Logan Westfall RBC's20 TO 92Gjbdih9-5ZjfauMercy Health Perrysburg HospitalComment on above:Result Comment: Reference range defined for non- centrifuged specimen.Performed By: #### UAMIC #### [address] [address] Piano Regulator: Logan Westfall WBC's2 TO 0Nhbuer5-5FcnwpMercy Health Perrysburg HospitalComment on above:Performed By: #### UAMIC #### [address] [address] Piano Regulator: Chase Westfallbilinogen,UrNormalNormalNORMMercy Health Perrysburg HospitalComment on above:Performed By: #### UAMIC #### [facility] [address] [place] [address] Piano Regulator: Afshin Mansfield MDUrinalysis with Microscopicon 12-01-2021 Bilirubin UrineNegativeNEGATIVEBON SECOURS InfernoRed TechnologyY HEALTHCasts UA2 TO 5 HYALINE Reference range defined for non-centrifuged specimen.[facility] HEALTH Color, UAYellowYellowBON SECOURS MERCY HEALTHEpithelial Cells UA0 TO 2[facility] InfernoRed TechnologyY HEALTHGlucose, UrNegativeNEGATIVEBON SECOURS [facility] Interpretation and review of laboratory resultsAbnormalBON SECOURS MER[facility] RITA'S MEDICAL CENTERAptana HEALTH Ketones Ql (U)TRACEAbnormalNEGATIVEBON SECOURS fflapLeukocyte esterase Test strip Ql (U)NegativeNEGATIVEBON SEC[facility] InfernoRed TechnologyY HEALTHNitrite, UrineNegative NEGATIVEBON [facility] Clever HEALTHpH, UA5.55 - 8[facility] Clever HEALTHProtein, UATRACEAbnormalNEGATIVEBON SECOURS MER[facility] RITA'S MEDICAL CENTERAptana HEALTHRBC, UA20 TO 50B[facility] Clever HEALTHComment on above:Reference range defined for non-centrifuged specimen. Specific [place], UA1.931Vyla6.005 - 1.03[facility] InfernoRed TechnologyY HEALTHTurbidity UA ClearClearBON SECOURS Clever HEALTHUrine HgbLARGEAbnormalNEGATIVEBON SEC[facility]RS fflapUrobilinogen, UrineNormalNormalBON [facility] Clever HEALTHWBC, UA2 TO 5 [facility] Clever HEALTHBON SECOURS [facility] RITA'S MEDICAL CENTERAptana HEALTHBasic Metabolic Panelon [id number] gap [Moles/Vol]11 mmol/L9 - 17 mmol/LBON SEC[facility] HEALTH Calcium [Mass/Vol]7.7 mg/dLLow8.6 - 10.4 mg/dLB[facility] SECOURS MERCY HEALTHChloride [Moles/Vol]102 mmol/L98 - 107 mmol/LBON [facility] InfernoRed TechnologyY HEALTHCO2 [Moles/Vol]21 mmol/L20 - 31 mmol/LBON [facility]RS MERCY HEALTHCreatinine [Mass/Vol]0.79 mg/dL0.7 - 1.2 mg/dLBON SEC[facility] InfernoRed TechnologyY HEALTHGFR >6060 - PINF mL/minBON SECOURS Clever HEALTHGFR Non->6060 - PINF mL/minCLINCH VALLEY MEDICAL CENTERGFR/1.73 sq M.predicted MDRD (S/P/Bld) [Vol rate/Area][facility] MEDICAL CENTERComment on above:Average GFR for 70 or more years old: 75 mL/min/1.73sq m Chronic Kidney Disease: <60 mL/min/1.73sq m Kidney failure: <15 mL/min/1.73sq m eGFR calculated using average adult body mass. Additional eGFR calculator available at: http://www.Ewireless/Placeable, [employer]_crcl_2012.htm Glucose [Mass/Vol]196 mg/vHTwnx13 - 99 mg/dLB[facility] Interpretation and review of laboratory resultsAbnormalCLINCH VALLEY MEDICAL CENTER Potassium [Moles/Vol]4.5 mmol/L3.7 - 5.3 mmol/LBON ST[facility] JOHN OF GOD HOSPITALSodium [Moles/Vol]134 mmol/KNee365 - 144 mmol/LBON [address] [facility] OF GOD HOSPITALUrea nitrogen (BldV) [Mass/Vol]17 mg/dL8 - 23 mg/dLBON CHILDREN'S CARE HOSPITAL AND SCHOOLBasic Metabolic Profon 11-88-0863Xixvjtp [Mass/Vol]196 mg/tBFngm96-37Jeanc St [facility] Medical CenterComment on above:Performed By: #### DAVEY VEE, BMP #### [facility] [address] [place] [id number] Piano Regulator: Afshin Mansfield MD(cont.)[facility] Comment on above:Result Comment: Average GFR for 70 or more years old: 75 mL/min/1.73sq m Chronic Kidney Disease: <60 mL/min/1.73sq m Kidney failure: <15 mL/min/1.73sq m eGFR calculated using average adult body mass. Additional eGFR calculator available at: http://www.Ewireless/Placeable, [employer]_crcl_2011.htmPerformed By: #### MARIUSZ GLYHGB, BMP #### [facility] [address] [place] [phone] Piano Regulator: Afshin Mansfield MDAnion gap [Moles/Vol]11 mmol/LNormal9-17[facility] HospitalComment on above:Performed By: #### CBC, GLYHGB, BMP #### [facility] [address] [place] [address] Piano Regulator: Afshin Mansfield MDCalcium [Mass/Vol]7.7 mg/dLLow8.6-10.4[facility] HospitalComment on above:Performed By: #### CBC, GLYHGB, BMP #### [facility] [address] [place] [address] Piano Regulator: Afshin Mansfield MDChloride [Moles/Vol]102 mmol/EJgihiy68-828LqsprMercy Health Perrysburg HospitalComment on above:Performed By: #### CBC, GLYHGB, BMP #### [facility] [address] [place] [address] Piano Regulator: Afshin Mansfield MDCO2 [Moles/Vol]21 mmol/ROusxze68-10FolhdMercy Health Perrysburg HospitalComment on above:Performed By: #### CBC, GLYHGB, BMP #### [facility] [address] [place] [address] Piano Regulator: Afshin Mansfield MDCreatinine [Mass/Vol]0.79 mg/dLNormal0.70-1.20 [facility] HospitalComment on above:Performed By: #### CBC, GLYHGB, BMP #### [facility] [address] [place] [address] Piano Regulator: MELVIN Westfall, Amer>60Normal>60MerCommunity Hospital of GardenaComment on above:Performed By: #### CBC, GLYHGB, BMP #### [facility] [address] [place] [address] Piano Regulator: Afshin Madoff, MDGFR,non Amer>60Normal>60[facility] HospitalComment on above:Performed By: #### CBC, GLYHGB, BMP #### [facility] [address] [place] [address] Piano Regulator: JOJO Westfallotassium [Moles/Vol]4.5 mmol/LNormal3.7-5.3 [facility] HospitalComment on above:Performed By: #### CBC, GLYHGB, BMP #### [facility] [address] [place] [address] Piano Regulator: Afshin Mansfield MDSodium [Moles/Vol]134 mmol/IMfh255-391MkdatMercy Health Perrysburg HospitalComment on above:Performed By: #### CBC, GLYHGB, BMP #### [facility] [address] [place] [address] Piano Regulator: Kati Westfall nitrogen [Mass/Vol]17 mg/dLNormal8-23[facility] HospitalComment on above:Performed By: #### CBC, GLYHGB, BMP #### [facility] [address] [place] [address] Piano Regulator: Afshin Mansfield [facility] with Auto Differentialon [id number] Eos #[facility]CY HEALTHAbsolute Immature Granulocyte0.12[facility] HEALTHAbsolute Lymph #1.09LowBON SECOURS MERCY HEALTHAbsolute [place] #1.40HighBON SECOURS MERCY HEALTHBasophils AbsoluteBON SEC[facility]RS MERCY HEALTHBasophils/100 WBC (Bld)0 %0 - 2 %[facility]CY HEALTHEosinophils/100 WBC (Bld)0 %Low1 - 4 %[facility]CY HEALTHHematocrit (Bld) [Volume fraction]41.7 %40.7 - 50.3 %[facility]CY HEALTHHemoglobin (Bld) [Mass/Vol]13.9 g/dL13 - 17 g/dLBON SECOURS MERCY HEALTHImmature granulocytes/100 WBC (Bld)1 %Gutb3MTV [facility] Interpretation and review of laboratory resultsAbnormalB[facility] ST. [facility] Lymphocytes/100 WBC (Bld)8 %Low24 - 43 %[facility] CENTERH (RBC) [Entitic mass]29.6 pg25.2 - 33.5 pgBON ADENA [facility] (RBC) [Mass/Vol] 33.3 g/dL28.4 - 34.8 g/dLBON ADENA REGIONAL MEDICAL CENTERV (RBC) [Entitic vol]88.7 fL 82.6 - 102.[address] JOHN OF GOD HOSPITALMonocytes/100 WBC (Bld)10 %3 - 12 %[facility] CENTERNRBC Automated0.00.0 per 100 WBCCLINCH VALLEY MEDICAL [facility]ENTER Platelet distribution width (Bld) [Ratio]14.0 %11.8 - 14.4 %[facility] MEDICAL CENTERPlatelet mean volume (Bld) [Entitic vol]10.2 fL8.1 - 13.5 fLCLINCH VALLEY MEDICAL CENTERPlatelets (Bld) [#/Vol]230 10*3/uLBON ST. JOHN OF GOD HOSPITALRBC (Bld) [#/Vol]4.70 10*6/uL4.21 - 5.77 m/uLCLINCH VALLEY MEDICAL CENTERSegmented neutrophils/100 WBC (Bld)81 %High36 - 65 %[facility] CENTERSegs Absolute 11.07HighBON ST. JOHN OF GOD HOSPITALWBC (Bld) [#/Vol]13.7 10*3/uLHighBON CHILDREN'S CARE HOSPITAL AND SCHOOLCBC with Diffon [id number]. Basophil<0.03 Normal0.00-0.20[facility] HospitalComment on above:Performed By: #### CBC, GLYHGB, BMP #### [employer] [address] [place], [place] [id number] Piano Regulator: Virgil Westfall. Eosinophil<0.08Vrwzew7.00-0.44[facility] Perrysburg HospitalComment on above:Performed By: #### CBC, GLYHGB, BMP #### [facility] [place] [address] Piano Regulator: MDAbs. MalouImm.Granulocyte0.12 k/uLNormal0.00-0.30[facility] HospitalComment on above:Performed By: #### MARIUSZ, GLYHGB, BMP #### [facility] [address] [place] [address] Piano Regulator: Virgil Westfall.Neutrophil (Seg)11.07 k/uLHigh1.50-8.10[facility] HospitalComment on above:Performed By: #### MARIUSZ, GLYHGB, BMP #### [facility] [employer] [address] [place] [address] Piano Regulator: Afhsin Mansfield MDBasophils/100 WBC (Bld)0 %Normal0-2MElastar Community HospitalComment on above:Performed By: #### MARIUSZ, GLYHGB, BMP #### [facility] [employer] [address] [place] [address] Piano Regulator: Afshin Mansfield MDEosinophils/100 WBC (Bld)0 %Low1-4Mer[facility] HospitalComment on above:Performed By: #### MARIUSZ GLYHGB, BMP #### [facility] [employer] [address] [place] [address] Piano Regulator: Afshin Mansfield MDErythrocyte distribution width (RBC) [Ratio]14.0 %Ppmyuz17.8-14.4[facility] HospitalComment on above:Performed By: #### MARIUSZ, GLYHGB, BMP #### [facility] [address] [place] [address] Piano Regulator: Afshin Mansfield MDHematocrit (Bld) [Volume fraction]41.7 %Normal 40.7-50.3MercShriners HospitalComment on above:Performed By: #### CBC, GLYHGB, BMP #### [facility] [address] [place] [address] Piano Regulator: Afshin Mansfield MDHemoglobin (Bld) [Mass/Vol]13.9 g/dLNormal 13.0-17.0Mer[facility] HospitalComment on above:Performed By: #### CBC, GLYHGB, BMP #### [facility] [address] [place] [address] Piano Regulator: Afshin Mansfield MDImmature granulocytes/100 WBC (Bld)1 %Pzgf1BwatmMercy Health Perrysburg HospitalComment on above:Performed By: #### CBC, GLYHGB, BMP #### [facility] [address] [place] [address] Piano Regulator: Afshin Mansfield MDLymphocytes (Bld) [#/Vol]1.09 10*3/uLLow 1.10-3.70[facility] HospitalComment on above:Performed By: #### CBC, GLYHGB, BMP #### [facility] [address] [place] [address] Piano Regulator: Vijay Westfallmphocytes/100 WBC (Bld)8 %Nkz19-92WzterMercy Health Perrysburg HospitalComment on above:Performed By: #### CBC, GLYHGB, BMP #### [facility] [address] [place] [address] Piano Regulator: BRITTANY WestfallCH (RBC) [Entitic mass]29.6 waSifqxx50.2-33.5 [facility] HospitalComment on above:Performed By: #### CBC, GLYHGB, BMP #### [facility] [address] [place] [address] Piano Regulator: BRITTANY WestfallCHC (RBC) [Mass/Vol]33.3 g/iOFgjqwb57.4-34.8 [facility] HospitalComment on above:Performed By: #### CBC, GLYHGB, BMP #### [address] [address] Piano Regulator: BRITTANY WestfallCV (RBC) [Entitic vol]88.7 fJMajgpw66.6-102.9 [facility] HospitalComment on above:Performed By: #### CBC, GLYHGB, BMP #### [place] [address] Piano Regulator: BRITTANY Westfallonocytes (Bld) [#/Vol]1.40 10*3/uLHigh0.10-1.20 [facility] HospitalComment on above:Performed By: #### CBC, GLYHGB, BMP #### [place] [address] Piano Regulator: BRITTANY Westfallonocytes/100 WBC (Bld)10 %Normal3-12Mer[facility] HospitalComment on above:Performed By: #### CBC, GLYHGB, BMP #### [place] [address] Piano Regulator: Pravin Westfallophil (Seg)81 %Iovb91-98RirgnMercy Health Perrysburg HospitalComment on above:Performed By: #### CBC, GLYHGB, BMP #### [place] [address] Piano Regulator: Afshin Mansfield MDNRBC Automated0.0 per 100 WBCNormal0.0Mer[facility] Perry[facility] HospitalComment on above:Performed By: #### CBC, GLYHGB, BMP #### [place] [address] Piano Regulator: JOJO Westfalllatelet mean volume (Bld) [Entitic vol]10.2 fL Normal8.1-13.5[facility] HospitalComment on above:Performed By: #### CBC, GLYHGB, BMP #### [facility] [address] [place] [address] Piano Regulator: Chilango Westfall ([facility]) [#/Vol]230 10*3/hPLmnyta985-779 [facility] HospitalComment on above:Performed By: #### CBC, GLYHGB, BMP #### [facility] [address] [place] [address] Piano Regulator: CONOR Westfall ([facility]) [#/Vol]4.70 10*6/uLNormal4.21-5.77 [facility] HospitalComment on above:Performed By: #### CBC, GLYHGB, BMP #### [facility] [address] [place] [address] Piano Regulator: XANDER Westfall ([facility]) [#/Vol]13.7 10*3/uLHigh3.5-11.3Mregional medical centery St Luke Medical CenterComment on above:Performed By: #### CBC, GLYHGB, BMP #### [facility] [address] [place] [address] Piano Regulator: EDWIGE Westfall 12 LeadOrdered By: Vicki Rob on [id number] [id number] [employer] Work Phone: P Prhw75dlhvkisOZSVerge Solutions Work Phone: P-R Qbviyomx128 msBON [employer] Work Phone: [phone] Toajoppv246 msBON [employer] Work Phone: QRS Csztbzld79 msBON SECRidley Work Phone: QTc Calculation (Bazett)480 msBON [employer] Work Phone: R [id number] [employer] Work Phone: T Ubdk81qmxnpsdMBJ SECRidley Work Phone: Ventricular Kdln11JNAWEP [facility] fflap Work Phone: BON [facility] [employer] Work Phone: EKG 12 Leadon [id number] sinus rhythm Low voltage QRS Inferior infarct , age undetermined Abnormal ECG No previous ECGs availableADVANCED SURGICAL HOSPITALVicki Lange MD - 11/30/2021 Normal sinus rhythm Low voltage QRS Inferior infarct , age undetermined Abnormal ECG No previous ECGs available BOST[facility] CITY HOSPITALRidley Work Phone: pOC Glucose Fingerstickon 38-88-4056Vxzjhht [Mass/Vol] 160 mg/kUMvcj53 - 110 mg/dLBON [facility] CENTERWellRight [facility] RITA[facility] MEDICAL CENTERRDA MicroelectronicsInterpretation and review of laboratory resultsAbnormDickenson Community Hospital Glucose [Mass/Vol]181 mg/xQHmnq89 - 110 mg/dLBON [facility] Interpretation and review of laboratory resultsAbnormRappahannock General Hospital BON [facility] Inferno[employer] Rootstock SoftwareGlucose [Mass/Vol]182 mg/jWXzlp83 - 110 mg/dLBON [facility] CENTERWellRight [facility] MEDICAL CENTERRDA MicroelectronicsInterpretation and review of laboratory resultsAbnoPoplar Springs HospitalAptana MEMORIAL HEALTH SYSTEMBasic Metabolic Panelon [id number] gap [Moles/Vol]12 mmol/L9 - 17 mmol/LBON [facility]IONAL MEDICAL CENTERWellRight [facility] RITA'[facility] MEDICAL CENTERRDA MicroelectronicsCalcium [Mass/Vol]8.3 mg/dLLow8.6 - 10.4 mg/dLBON [facility] CENTERWellRight [facility] MEDICAL CENTERRDA MicroelectronicsChloride [Moles/Vol]101 mmol/L98 - 107 mmol/LBON [facility] MEDICAL CENTERWellRight [facility] MEDICAL CENTERRDA MicroelectronicsCO2 [Moles/Vol]20 mmol/L20 - 31 mmol/LBON [facility]ION[facility] MEDICAL CENTERRidleyCreatinine [Mass/Vol]0.89 mg/dL0.7 - 1.2 mg/dLBON [facility] CENTERWellRight [facility] MEDICAL CENTERRDA MicroelectronicsGFR >6060 - PINF mL/minBOSTON CITY HOSPITALWellRight [facility] HOSPITALGFR Non->6060 - PINF mL/minBON ST. JOHN OF GOD HOSPITALGFR/1.73 sq M.predicted MDRD (S/P/Bld) [Vol rate/Area][facility] CENTERComment on above:Average GFR for 70 or more years old: 75 mL/min/1.73sq m Chronic Kidney Disease: <60 mL/min/1.73sq m Kidney failure: <15 mL/min/1.73sq m eGFR calculated using average adult body mass. Additional eGFR calculator available at: http://www.Ewireless/multiple_crcl_2012.htm Glucose [Mass/Vol]198 mg/wNBcxc13 - 99 mg/dLBON ST. [facility] Interpretation and review of laboratory resultsAbnormalCLINCH VALLEY [facility]ENTER Potassium [Moles/Vol]4.4 mmol/L3.7 - 5.3 mmol/LBON ST. JOHN OF GOD HOSPITALSodium [Moles/Vol]133 mmol/UUpm311 - 144 mmol/LBON ST. JOHN OF GOD HOSPITALUrea nitrogen (BldV) [Mass/Vol]14 mg/dL8 - 23 mg/dLBON CHILDREN'S CARE HOSPITAL AND SCHOOLBasic Metabolic Profon 11-29-2021(cont.)NormalMercy Health Perrysburg HospitalComment on above:Result Comment: Average GFR for 70 or more years old: 75 mL/min/1.73sq m Chronic Kidney Disease: <60 mL/min/1.73sq m Kidney failure: <15 mL/min/1.73sq m eGFR calculated using average adult body mass. Additional eGFR calculator available at: http://www.Ewireless/Placeable, [employer]_crcl_2011.htmPerformed By: #### DALE MALDONADO, CDP #### [employer] [facility] [employer] [address] [place] [address] Piano Regulator: Byron Westfall gap [Moles/Vol]12 mmol/LNormal9-17[facility] HospitalComment on above:Performed By: #### DALE MALDONADO, CDP #### [facility] [address] [place] [address] Piano Regulator: Afshin Madoff, MDCalcium [Mass/Vol]8.3 mg/dLLow8.6-10.4[facility] HospitalComment on above:Performed By: #### DALE MALDONADO, CDP #### [facility] [employer] [address] [place] [address] Piano Regulator: WOODROW Westfallhloride [Moles/Vol]101 mmol/ZUquqmv86-060KesijMercy Health Perrysburg HospitalComment on above:Performed By: #### DALE MALDONADO, CDP #### [facility] [employer] [address] [place] [address] Piano Regulator: Afshin Mansfield MDCO2 [Moles/Vol]20 mmol/MOhlclt46-97XfgmiMercy Health Perrysburg HospitalComment on above:Performed By: #### DALE MALDONADO, CDP #### [facility] [employer] [address] [place] [address] Piano Regulator: WOODROW Westfallreatinine [Mass/Vol]0.89 mg/dLNormal0.70-1.20 [facility] HospitalComment on above:Performed By: #### DALE MALDONADO, CDP #### [facility] [employer] [address] [place] [address] Piano Regulator: Afshin Mansfield MDGFR, Amer>60Normal>60[facility] HospitalComment on above:Performed By: #### DALE MALDONADO, CDP #### [facility] [employer] [address] [place] [address] Piano Regulator: Afshin Mansfield MDGFR,non Amer>60Normal>60[facility] HospitalComment on above:Performed By: #### DALE MALDONADO, CDP #### [facility] [employer] [address] [place] [address] Piano Regulator: Afshin Mansfield MDGlucose [Mass/Vol]198 mg/tQMhlo58-51TyuppElastar Community HospitalComment on above:Performed By: #### DALE MALDONADO, CDP #### [facility] [address] [place] [address] Piano Regulator: JOJO Westfallotassium [Moles/Vol]4.4 mmol/LNormal3.7-5.3 [facility] HospitalComment on above:Performed By: #### DALE MALDONADO, CDP #### [facility] [address] [place] [address] Piano Regulator: KRISTIAN Westfallodium [Moles/Vol]133 mmol/PClo475-163RakxyMercy Health Perrysburg HospitalComment on above:Performed By: #### DALE MALDONADO, CDP #### [facility] [address] [place] [address] Piano Regulator: Afshin Mansfield MDUrea nitrogen [Mass/Vol]14 mg/dLNormal8-23[facility] HospitalComment on above:Performed By: #### DALE MALDONADO, CDP #### [facility] [address] [place] [address] Piano Regulator: Afshin Mansfield [facility] with Auto Differentialon [id number] Eos #0.00B[facility] MERCY HEALTHAbsolute Immature Granulocyte0.19B[facility]CY HEALTHAbsolute Lymph #0.57LowBON SECOURS MERCY HEALTHAbsolute [place] #1.33 HighBON SECOURS MERCY HEALTHBasophils (Bld) [#/Vol]0.00 10*3/uLBON SECOURS MERCY HEALTHBasophils/100 WBC (Bld)0 %0 - 2 %[facility] HEALTHEosinophils/100 WBC (Bld)0 %Low1 - 4 %[facility] MERCY HEALTHHematocrit (Bld) [Volume fraction] 40.4 %Low40.7 - 50.3 %[facility] MERCY HEALTHHemoglobin (Bld) [Mass/Vol]13.6 g/dL13 - 17 g/dLBON SECOURS MERCY HEALTHImmature granulocytes/100 WBC (Bld)1 % Swnh6HZC ST. JOHN OF GOD HOSPITALInterpretation and review of laboratory results AbnormalBON ST. JOHN OF GOD HOSPITALLymphocytes/100 WBC (Bld)3 %Low24 - 43 %BON [facility] MEDICAL CENTERH (RBC) [Entitic mass]30.5 pg25.2 - 33.5 pgBON ADENA REGIONAL MEDICAL CENTERHC (RBC) [Mass/Vol]33.7 g/dL28.4 - 34.8 g/dLBON SECWILSON STREET HOSPITALV (RBC) [Entitic vol]90.6 fL82.6 - 102.9 fLCLINCH VALLEY MEDICAL CENTER Monocytes/100 WBC (Bld)7 %3 - 12 %B[facility] JOHN OF GOD HOSPITALMorphology Callum (Bld) [Interp]NormalCLINCH VALLEY MEDICAL CENTERNRBC Automated0.00.[address] JOHN OF GOD HOSPITALPlatelet distribution width (Bld) [Ratio]13.7 %11.8 - 14.4 % B[facility] OF GOD HOSPITALPlatelet mean volume (Bld) [Entitic vol]9.9 fL8.1 - 13.5 fLCLINCH VALLEY MEDICAL CENTERPlatelets (Bld) [#/Vol]250 10*3/uLCLINCH VALLEY MEDICAL CENTERRBC (Bld) [#/Vol]4.46 10*6/uL4.21 - 5.77 m/uLCLINCH VALLEY MEDICAL CENTER Segmented neutrophils/100 WBC (Bld)89 %High36 - 65 %BON [facility] JOHN OF GOD HOSPITALSegs Ctuhodji95.91HighCLINCH VALLEY MEDICAL CENTERWBC (Bld) [#/Vol]19.0 10*3/uLHighCLINCH VALLEY MEDICAL CENTERBON ST. JOHN OF GOD HOSPITALCBC with Diffon [id number]. Basophil0.00 k/uLNormal0.00-0.20[facility] HospitalComment on above:Performed By: #### DALE MALDONADO, CDP #### [facility] [address] [place] [address] Piano Regulator: Virgil Westfall.Imm.Granulocyte0.19 k/uLNormal0.00-0.30[facility] HospitalComment on above:Performed By: #### DALE MALDONADO, CDP #### [facility] [address] [place] [address] Piano Regulator: Virgil Westfall.Neutrophil (Seg)16.91 k/uLHigh1.50-8.10[facility] HospitalComment on above:Performed By: #### DALE MALDONADO, CDP #### [facility] [address] [place] [address] Piano Regulator: Afshin Mansfield MDBasophils/100 WBC (Bld)0 %Normal0-2MercShriners HospitalComment on above:Performed By: #### DALE MALDONADO, CDP #### [facility] [address] [place] [address] Piano Regulator: Afshin Mansfield MDEosinophils (Bld) [#/Vol]0.00 10*3/uLNormal 0.00-0.44[facility] HospitalComment on above:Performed By: #### DALE MALDONADO, CDP #### [facility] [address] [place] [address] Piano Regulator: Afshin Mansfield MDEosinophils/100 WBC (Bld)0 %Low1-4Mer[facility] HospitalComment on above:Performed By: #### DALE MALDONADO, CDP #### [facility] [address] [place] [address] Piano Regulator: Afshin Mansfield MDImmature granulocytes/100 WBC (Bld)1 %Rlbk4KrqmiMercy Health Perrysburg HospitalComment on above:Performed By: #### DALE MALDONADO, CDP #### [facility] [address] [place] [address] Piano Regulator: Afshin Mansfield MDLymphocytes (Bld) [#/Vol]0.57 10*3/uLLow 1.10-3.70[facility] HospitalComment on above:Performed By: #### DALE MALDONADO, CDP #### [facility] [address] [place] [address] Piano Regulator: Afshin Mansfield MDLymphocytes/100 WBC (Bld)3 %Ate86-87MxeuqMercy Health Perrysburg HospitalComment on above:Performed By: #### DALE MALDONADO, CDP #### [facility] [address] [place] [address] Piano Regulator: Afshin Mansfield MDMonocytes (Bld) [#/Vol]1.33 10*3/uLHigh0.10-1.20 [facility] HospitalComment on above:Performed By: #### DALE MALDONADO, CDP #### [facility] [employer] [address] [place] [address] Piano Regulator: BRITTANY Westfallonocytes/100 WBC (Bld)7 %Normal3-12[facility] HospitalComment on above:Performed By: #### DALE MALDONADO, CDP #### [facility] [employer] [address] [place] [address] Piano Regulator: BRITTANY Westfallorphology Callum (Bld) [Interp]NormalNormalMercy Health Perrysburg HospitalComment on above:Performed By: #### DALE MALDONADO, CDP #### [facility] [employer] [address] [place] [address] Piano Regulator: Afshin Mansfield MDNeutrophil (Seg)89 %Rerb31-30YofwiMercy Health Perrysburg HospitalComment on above:Performed By: #### DALE MALDONADO, CDP #### [facility] [address] [place] [address] Piano Regulator: Afshin Mansfield MDErythrocyte distribution width (RBC) [Ratio]13.7 %Ytnepi55.8-14.4[facility] HospitalComment on above:Performed By: #### DALE MALDONADO, CDP #### [facility] [address] [place] [address] Piano Regulator: Afshin Mansfield MDHematocrit (Bld) [Volume fraction]40.4 %Low 40.7-50.3[facility] Luke Medical CenterComment on above:Performed By: #### DALE MALDONADO, CDP #### [address] [address] Piano Regulator: Afshin Mansfield MDHemoglobin (Bld) [Mass/Vol]13.6 g/dLNormal 13.0-17.0[facility] HospitalComment on above:Performed By: #### DALE MALDONADO, CDP #### [address] [address] Piano Regulator: BRITTANY WestfallCH (RBC) [Entitic mass]30.5 qpGsvvws68.2-33.5 [facility] HospitalComment on above:Performed By: #### DALE MALDONADO, CDP #### [address] [address] Piano Regulator: BRITTANY WestfallCHC (RBC) [Mass/Vol]33.7 g/tOIfofoy23.4-34.8 [facility] HospitalComment on above:Performed By: #### DALE MALDONADO, CDP #### [address] [address] Piano Regulator: BRITTANY WestfallCV (RBC) [Entitic vol]90.6 wPDvtbho12.6-102.9 [facility] HospitalComment on above:Performed By: #### DALE MALDONADO, CDP #### [facility] [employer] [address] [place] [address] Piano Regulator: Afshin Mansfield MDNRBC Automated0.0 per 100 WBCNormal0.0[facility] HospitalComment on above:Performed By: #### DALE MALDONADO, CDP #### [facility] [employer] [address] [place] [address] Piano Regulator: Courtney Westfall mean volume (Bld) [Entitic vol]9.9 fL Normal8.1-13.5[facility] HospitalComment on above:Performed By: #### DALE MALDONADO, CDP #### [facility] [employer] [address] [place] [address] Piano Regulator: Ban Westfalltemelissa (Bld) [#/Vol]250 10*3/bWXjmypr770-787 [facility] HospitalComment on above:Performed By: #### DALE MALDONADO, CDP #### [facility] [employer] [address] [place] [address] Piano Regulator: KEIKO WestfallBC (Bld) [#/Vol]4.46 10*6/uLNormal4.21-5.77 [facility] HospitalComment on above:Performed By: #### DALE MALDONADO, CDP #### [facility] [employer] [address] [place] [address] Piano Regulator: XANDER Westfall (Bld) [#/Vol]19.0 10*3/uLHigh3.5-11.3MElastar Community HospitalComment on above:Performed By: #### DALE MALDONADO, CDP #### [facility] [employer] [address] [place] [address] Piano Regulator: Afshin Mansfield MDCT HEAD WO CONTRASTon [id number] HEAD WO CONTRASTEXAMINATION: CT OF THE HEAD [...] Signed by: Anders Shepard MD 11/29/21 Final resultNormalMerBaldwin Park Hospitalimilar 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 Similar punctate focus of presumed hemorrhage. [facility] CONSOLIDATEDEXAMINATION: CT OF THE HEAD [...] of the visualized skull or soft tissues. [facility] Anders Dunlap MD - 11/29/2021 [...] shift. Similar punctate focus of presumed hemorrhage. [facility] [employer] Work Phone: [facility] [employer] Work Phone: radiology Study observation (narrative)[facility] [employer] Work Phone: calcium, Ionicon [id number] [Moles/Vol]1.07 mmol/LLow1.13-1.33[facility] Luke Medical CenterComment on above:Performed By: #### JOEL, BMP, CDP #### [facility] [address] [place] [address] Piano Regulator: WOODROW Westfallalcium, Ionizedon 82-48-7993Wccnmec, Ionized 1.07 mmol/LLow1.13 - 1.33 mmol/LBON ST. JOHN OF GOD HOSPITALInterpretation and review of laboratory resultsAbnormalBON CHILDREN'S CARE HOSPITAL AND SCHOOLMagnesiumon 42-00-1763Olubgqrnl [Mass/Vol]2.6 mg/dLNormal1.6-2.6[facility] Luke Medical CenterComment on above:Performed By: #### IOCAL, BMP, CDP #### [facility] [address] [place] [address] Piano Regulator: Gucci Westfallgnesium [Mass/Vol]2.6 mg/dL1.6 - 2.6 mg/dLB[facility] Glucose Fingerstickon 11-29-2021 Glucose [Mass/Vol]199 mg/hZKnzl05 - 110 mg/dLB[facility] Interpretation and review of laboratory resultsAbnormalSENTARA OBICI HOSPITALGlucose [Mass/Vol]211 mg/oTEuzb30 - 110 mg/dLBON ST. JOHN OF GOD HOSPITALInterpretation and review of laboratory resultsAbnormalVALLEY HEALTHGlucose [Mass/Vol]213 mg/oXBscf79 - 110 mg/dLB[address]. JOHN OF GOD HOSPITALInterpretation and review of laboratory results AbnormalBON CHILDREN'S CARE HOSPITAL AND SCHOOLGlucose [Mass/Vol]195 mg/wUVovy47 - 110 mg/dLB[address] ST. JOHN OF GOD HOSPITALInterpretation and review of laboratory resultsAbnormalVALLEY HEALTH Glucose [Mass/Vol]205 mg/eUJbzm43 - 110 mg/dLB[facility] Interpretation and review of laboratory resultsAbnormDominion HospitalBasic Metabolic Profon 11-28-2021(cont.)[facility] Memorial HospitalComment on above:Result Comment: Average GFR for 70 or more years old: 75 mL/min/1.73sq m Chronic Kidney Disease: <60 mL/min/1.73sq m Kidney failure: <15 mL/min/1.73sq m eGFR calculated using average adult body mass. Additional eGFR calculator available at: http://www.[employer]hound.Infracommerce/multiple_crcl_2012.htmPerformed By: #### CBC, GLYHGB, BMP #### [facility] [address] [place], [place] [id number] Piano Regulator: Afshin Madoff, MDAnion gap [Moles/Vol]15 mmol/LNormal9-17[facility] HospitalComment on above:Performed By: #### CBC, GLYHGB, BMP #### [facility] [address] [place] [address] Piano Regulator: Afshin Mansfield MDCalcium [Mass/Vol]8.1 mg/dLLow8.6-10.4[facility] HospitalComment on above:Performed By: #### CBC, GLYHGB, BMP #### [facility] [address] [place] [address] Piano Regulator: Afshin Mansfield MDChloride [Moles/Vol]95 mmol/CRac19-313XxxmoMercy Health Perrysburg HospitalComment on above:Performed By: #### CBC, GLYHGB, BMP #### [facility] [address] [place] [address] Piano Regulator: Afshin Mansfield MDCO2 [Moles/Vol]21 mmol/FPfnxxe94-25VcqgmMercy Health Perrysburg HospitalComment on above:Performed By: #### CBC, GLYHGB, BMP #### [facility] [address] [place] [address] Piano Regulator: Afshin Mansfield MDCreatinine [Mass/Vol]0.94 mg/dLNormal0.70-1.20 [facility] HospitalComment on above:Performed By: #### CBC, GLYHGB, BMP #### [facility] [address] [place] [address] Piano Regulator: MELVIN Westfall, Amer>60Normal>60[facility] HospitalComment on above:Performed By: #### CBC, GLYHGB, BMP #### [facility] [address] [place] [address] Piano Regulator: MELVIN Westfall,non Amer>60Normal>60[facility] HospitalComment on above:Performed By: #### CBC, GLYHGB, BMP #### [facility] [address] [place] [address] Piano Regulator: Afshin Mansfield MDGlucose [Mass/Vol]230 mg/nSKycn93-25RcbspElastar Community HospitalComment on above:Performed By: #### CBC, GLYHGB, BMP #### [facility] [address] [place] [address] Piano Regulator: JOJO Westfallotassium [Moles/Vol]4.2 mmol/LNormal3.7-5.3 [facility] HospitalComment on above:Performed By: #### MARIUSZ, GLYHGB, BMP #### [facility] [address] [place] [address] Piano Regulator: KRISTIAN Westfallodium [Moles/Vol]131 mmol/YPxu735-177IorpeMercy Health Perrysburg HospitalComment on above:Performed By: #### MARIUSZ, GLYHGB, BMP #### [facility] [address] [place] [address] Piano Regulator: Afshin Mansfield MDUrea nitrogen [Mass/Vol]10 mg/dLNormal8-23Mer[facility] Perrysburg HospitalComment on above:Performed By: #### MARIUSZ, GLYHGB, BMP #### [facility] [address] [place] [address] Piano Regulator: Afshin Mansfield MDBasic metabolic panelon 55-99-2903Vqcmh gap [Moles/Vol]15 mmol/L9 - 17 mmol/LBON SECOURS MERCY HEALTHCalcium [Mass/Vol]8.1 mg/dLLow8.6 - 10.4 mg/dLBON SECOURS MERCY HEALTHChloride [Moles/Vol]95 mmol/LLow 98 - 107 mmol/LBON SECOURS MERCY HEALTHCO2 [Moles/Vol]21 mmol/L20 - 31 mmol/LBON SECOURS MERCY HEALTHCreatinine [Mass/Vol]0.94 mg/dL0.7 - 1.2 mg/dLBON ST. JOHN OF GOD HOSPITALGFR >6060 - PINF mL/minBON ST. JOHN OF GOD HOSPITALGFR Non->6060 - PINF mL/minCLINCH VALLEY MEDICAL CENTERGFR/1.73 sq M.predicted MDRD (S/P/Bld) [Vol rate/Area]MIRA ST. [facility] OF GOD HOSPITALComment on above:Average GFR for 70 or more years old: 75 mL/min/1.73sq m Chronic Kidney Disease: <60 mL/min/1.73sq m Kidney failure: <15 mL/min/1.73sq m eGFR calculated using average adult body mass. Additional eGFR calculator available at: http://www.Ewireless/multiple_crcl_2011.htm Glucose [Mass/Vol]230 mg/cIZxre76 - 99 mg/dLBON ST. [facility]OSPITAL Interpretation and review of laboratory resultsAbnoLifePoint Health Potassium [Moles/Vol]4.2 mmol/L3.7 - 5.3 mmol/LBON ST. JOHN OF GOD HOSPITALSodium [Moles/Vol]131 mmol/DRfv017 - 144 mmol/LBON ST[address] JOHN OF GOD HOSPITALUrea nitrogen (BldV) [Mass/Vol]10 mg/dL8 - 23 mg/dLBON CHILDREN'S CARE HOSPITAL AND SCHOOLC-Reactive Proteinon [id number] [Mass/Vol]13.7 mg/LHigh0.0-5.0[facility] HospitalComment on above:Performed By: #### JOEL, BMP, CDP #### [facility] [address] [place] [address] Piano Regulator: WOODROW WestfallRP [Mass/Vol]13.7 mg/LHigh0 - 5 mg/LBON [address] JOHN OF GOD HOSPITALInterpretation and review of laboratory resultsAbnormalVALLEY HEALTHCBCon 31-43-6138Jfcjtmhopui distribution width (RBC) [Ratio]13.6 %Wyjvaa99.8-14.4Mer[facility] Perrysburg HospitalComment on above:Performed By: #### CBC, GLYHGB, BMP #### [address] [address] Piano Regulator: Afshin Mansfield MDHematocrit (Bld) [Volume fraction]40.1 %Low 40.7-50.3MElastar Community HospitalComment on above:Performed By: #### CBC, GLYHGB, BMP #### [address] [address] Piano Regulator: Afshin Mansfield MDHemoglobin (Bld) [Mass/Vol]13.9 g/dLNormal 13.0-17.0[facility] HospitalComment on above:Performed By: #### CBC, GLYHGB, BMP #### [address] [address] Piano Regulator: BRITTANY WestfallCH (RBC) [Entitic mass]30.2 ldDbsosf94.2-33.5 [facility] HospitalComment on above:Performed By: #### CBC, GLYHGB, BMP #### [address] [address] Piano Regulator: BRITTANY WestfallCHC (RBC) [Mass/Vol]34.7 g/oJKpvaav66.4-34.8 [facility] HospitalComment on above:Performed By: #### CBC, GLYHGB, BMP #### [address] [address] Piano Regulator: BRITTANY WestfallCV (RBC) [Entitic vol]87.0 uZNlptkx81.6-102.9 [facility] HospitalComment on above:Performed By: #### CBC, GLYHGB, BMP #### [address] [address] Piano Regulator: Afshin Mansfield MDNRBC Automated0.0 per 100 WBCNormal0.0Mer[facility] Perry[facility] HospitalComment on above:Performed By: #### CBC, GLYHGB, BMP #### [facility] [address] [place] [address] Piano Regulator: Courtney Westfall mean volume (Bld) [Entitic vol]10.1 fL Normal8.1-13.5Mer[facility] Perry[facility] HospitalComment on above:Performed By: #### CBC, GLYHGB, BMP #### [facility] [address] [place] [address] Piano Regulator: Chilango Westfall (Bld) [#/Vol]222 10*3/eHUvabui962-617 [facility] HospitalComment on above:Performed By: #### CBC, GLYHGB, BMP #### [facility] [employer] [address] [place] [address] Piano Regulator: KEIKO WestfallBC (Bld) [#/Vol]4.61 10*6/uLNormal4.21-5.77 [facility] HospitalComment on above:Performed By: #### MARIUSZ, GLYHGB, BMP #### [facility] [employer] [address] [place] [address] Piano Regulator: Afshin Mansfield MDWBC (Bld) [#/Vol]13.5 10*3/uLHigh3.5-11.3MElastar Community HospitalComment on above:Performed By: #### CBC, GLYHGB, BMP #### [facility] [employer] [facility] [place] [address] Piano Regulator: Afshin Mansfield MDHematocrit (Bld) [Volume fraction]40.1 %Low40.7 - 50.3 %CLIN[facility] VALLEY MEDICAL CENTERHemoglobin (Bld) [Mass/Vol]13.9 g/dL13 - 17 g/dL [facility] MEDICAL CENTERInterpretation and review of laboratory resultsAbnormal B[facility] MERCY HEALTHMCH (RBC) [Entitic mass]30.2 pg25.2 - 33.5 pgBON ADENA REGIONAL MEDICAL CENTERHC (RBC) [Mass/Vol]34.7 g/dL28.4 - 34.8 g/dLBON ADENA REGIONAL MEDICAL CENTERV (RBC) [Entitic vol]87.0 fL82.6 - 102.9 fLCLINCH VALLEY MEDICAL CENTERNRBC Automated0.00.[address] JOHN OF GOD HOSPITALPlatelet distribution width (Bld) [Ratio]13.6 %11.8 - 14.4 %[facility] [facility] OF GOD HOSPITALPlatelet mean volume (Bld) [Entitic vol]10.1 fL8.1 - 13.5 fLRIVERSIDE HEALTH SYSTEM HEALTHPlatelets (Bld) [#/Vol]222 10*3/uLCLINCH VALLEY MEDICAL CENTERRBC (Bld) [#/Vol]4.61 10*6/uL4.21 - 5.77 m/uLCLINCH VALLEY MEDICAL CENTERWBC (Bld) [#/Vol]13.5 10*3/uLHighBON CHILDREN'S CARE HOSPITAL AND SCHOOLCBC AUTO DIFFon [id number] #0.0 103/ul Normal0.0-0.1The [facility] Ment[facility] HospitalComment on above:Performed By: #### HSTROPN, CMP, CRP #### [facility] [address] [address] [address] Sea PughBasophils/100 WBC (Bld)0.3 %Normal0.2-2.0[facility] Comment on above:Performed By: #### HSTROPN, CMP, CRP #### [facility] [address] [address] [address] Sea Torre #0.1 103/ulNormal0.0-0.7The [facility] HospitalComment on above: Performed By: #### HSTROPN, CMP, CRP #### [facility] [address] [address] [address] Sea Fordosinophils/100 WBC (Bld)0.8 %Critically low0.9-7.0The [facility] Whitley HospitalComment on above:Performed By: #### HSTROPN, CMP, CRP #### [facility] [address] [address] [address] Sea Fordrythrocyte distribution width (RBC) [Ratio]13.6 %Jikhdr09.0-15.0 The [facility] HospitalComment on above:Performed By: #### HSTROPN, CMP, CRP #### [facility] [address] [place] [address] Dr. Sea PughHematocrit (Bld) [Volume fraction]41.0 %Critically low42.0-54.0 The [facility] HospitalComment on above:Performed By: #### HSTROPN, CMP, CRP #### [facility] [address] [place] [address] Dr. Sea PughHemoglobin (Bld) [Mass/Vol]14.0 g/fRPdxyeh95.0-18.0The White Hospitalment on above:Performed By: #### HSTROPN, CMP, CRP #### [facility] [address] [place] [address] Dr. Sea Anguiano #0.04 10e3/ulCritically high0.00-0.03The [facility] Comment on above:Performed By: #### HSTROPN, CMP, CRP #### [facility] [address] [place] [address] Dr. Sea Anguiano %0.3 %Normal0.0-0.5The White Hospitalment on above: Performed By: #### HSTROPN, CMP, CRP #### [facility] [address] [place] [address] Dr. Sea NovaMPH #1.2 103/ulNormal1.2-3.8The [facility] HospitalComment on above:Performed By: #### HSTROPN, CMP, CRP #### [facility] [address] [place] [address] Dr. Sea Novamphocytes/100 WBC (Bld)9.7 %Critically low20.5-60.0The López HospitalComment on above:Performed By: #### HSTROPN, CMP, CRP #### [facility] [address] [address] [address] Sea Merino DIFF REQNONormalThe [facility] HospitalComment on above: Performed By: #### HSTROPN, CMP, CRP #### [facility] [address] [address] [address] Sea Steele (RBC) [Entitic mass]29.9 ktNcujfo14.9-34.0The [facility] HospitalComment on above:Performed By: #### HSTROPN, CMP, CRP #### [facility] [address] [address] [address] Sea Steele (RBC) [Mass/Vol]34.1 g/oKOcdoks23.9-35.2The [facility] HospitalComment on above:Performed By: #### HSTROPN, CMP, CRP #### [facility] [address] [address] [address] Sea Izaguirre (RBC) [Entitic vol]87.6 jBWfukzh58.0-94.0The White Hospitalment on above:Performed By: #### HSTROPN, CMP, CRP #### [facility] [address] [address] [address] Sea Rain #0.9 103/ulCritically high0.3-0.8ThKettering Health Comment on above:Performed By: #### HSTROPN, CMP, CRP #### [facility] [address] [place] [address] Dr. Sea Bansalocytes/100 WBC (Bld)7.4 %Normal1.7-12.0[facility] Comment on above:Performed By: #### HSTROPN, CMP, CRP #### [facility] [address] [place] [address] Dr. Sea Zapata #10.3 103/ulCritically high1.4-6.5The [facility] Comment on above:Performed By: #### HSTROPN, CMP, CRP #### [facility] [address] [place] [address] Dr. Sea Díazutrophils/100 WBC (Bld)81.5 %Critically high43.0-75.0The [facility] HospitalComment on above:Performed By: #### HSTROPN, CMP, CRP #### [facility] [address] [place] [address] Dr. Sea Santacruzlet mean volume (Bld) [Entitic vol]9.8 fLNormal9.5-13.5The [facility] HospitalComment on above:Performed By: #### HSTROPN, CMP, CRP #### [facility] [address] [place] [address] Dr. Sea PughPLT247 103/gsWyghmr487-545Mgv [facility] HospitalComment on above: Performed By: #### HSTROPN, CMP, CRP #### [facility] [address] [place] [address] Dr. Sea PughRBC4.68 106/ulCritically low4.70-6.10The [facility] HospitalComment on above:Performed By: #### HSTROPN, CMP, CRP #### [facility] [address] [place] [address] Dr. Sea PughWBC12.6 103/ulCritically high4.0-11.0The [facility] HospitalComment on above:Performed By: #### HSTROPN, CMP, CRP #### [facility] [address] [place] [address] Dr. Sea Robbins 74-86-7027OVQ6.3 mg/dLNormal<=1.0[facility] Comment on above:Performed By: #### HSTROPN, CMP, CRP #### [facility] [address] [place] [address] Dr. Sea PughCT HEAD WO CONon [id number] HEAD WO CONEXAMINATION: CT HEAD WO CON [...] authenticated by: VICENTA MARCH Date: 2021-11-28 00:11[facility] HEAD WO CONTRASTon [id number] HEAD WO CONTRASTEXAMINATION: CT OF THE HEAD [...] Signed by: Adalberto Escobar MD 11/28/21 Final resultNormalMercy Health Perrysburg HospitalRadiology Study observation (narrative)MIRA AMEZCUA [facility] [employer] Work Phone: cta HEAD NECK W CONTRASTon [id number] HEAD NECK W CONTRASTEXAMINATION: CT OF THE [...] Signed by: Adalberto Escobar MD 11/28/21 Final resultNormalMercy Health Perrysburg HospitalCTA head neck with contraston [id number] Study observation (narrative)[facility] [employer] Work Phone: Hemoglobin A1Con [id number] [Mass/Vol]186 mg/dL NormalMercy Health Perrysburg HospitalComment on above:Result Comment: The ADA and AACC recommend providing the estimated average glucose result to permit better patient understanding of their HBA1c result.Performed By: #### CBC, GLYHGB, BMP #### [facility] [address] [place] [address] Piano Regulator: Asfhin Mansfield MDHbA1c (Bld) [Mass fraction]8.1 %High4.0-6.0[facility] HospitalComment on above:Performed By: #### CBC, GLYHGB, BMP #### [facility] [address] [place] [address] Piano Regulator: Afshin Mansfield MDHemoglobin A1con 79-63-3865Wdzqycc [Mass/Vol]186 mg/dLBON [employer] [facility]IAL HEALTH SYSTEMComment on above:The ADA and AACC recommend providing the estimated average glucose result to permit better patient understanding of their HBA1c result. HbA1c (Bld) [Mass fraction]8.1 %High4 - 6 %[facility] HOSPITALRidley Interpretation and review of laboratory resultsAbnormDominion HospitalLACTATE/LACTIC ACIDon 80-75-6451Ehjvwgw [Moles/Vol]1.7 mmol/LNormal0.4-1.9The [facility] HospitalComment on above:Performed By: #### DDIM #### [facility] [address] [address] [address] Sea PughLipid Panelon [id number] [Mass/Vol]122 mg/dLNINF - 200 mg/dLBON WHITE MOUNTAIN REGIONAL MEDICAL CENTERSkyscraper MEMORIAL HEALTH SYSTEMComment on above: Cholesterol Guidelines: <200 Desirable 200-240 Borderline >240 Undesirable Cholesterol in HDL [Mass/Vol]34 mg/dLLow40 - PINF mg/dLBON [employer] Comment on above: HDL Guidelines: <40 Undesirable 40-59 Borderline >59 Desirable Cholesterol in LDL [Mass/Vol]74 mg/dL0 - 130 mg/dLBON WHITE MOUNTAIN REGIONAL MEDICAL CENTERRidley Comment on above: LDL Guidelines: <100 Desirable 100-129 Near to/above Desirable 130-159 Borderline >159 Undesirable Direct (measured) LDL and calculated LDL are not interchangeable tests. Cholesterol.total/Cholesterol in HDL [Mass ratio]3.6 {ratio}NINF - 5BON LAKEWOOD REGIONAL MEDICAL CENTERRDA MicroelectronicsInterpretation and review of laboratory resultsAbnormLewisGale Hospital MontgomeryRDA MicroelectronicsTriglyceride [Mass/Vol]71 mg/dLNINF - 150 mg/dLBON WHITE MOUNT[facility] REGION[facility] MEDICAL CENTERSkyscraper MEMORIAL HEALTH SYSTEMComment on above: Triglyceride Guidelines: <150 Desirable 150-199 Borderline 200-499 High >499 Very high Based on AHA Guidelines for fasting triglyceride, December 2011. Be SportLipid Profileon 15-25-5394Ymxfbezletx [Mass/Vol]122 mg/dLNormal<200Mercy St Luke Medical CenterComment on above:Result Comment: Cholesterol Guidelines: <200 Desirable 200-240 Borderline >240 UndesirablePerformed By: #### DALE MALDONADO, CDP #### [facility] [address] [place] [address] Piano Regulator: WOODROW Westfallholesterol in HDL [Mass/Vol]34 mg/dLLow>40Mercy St Luke Medical CenterComment on above:Result Comment: HDL Guidelines: <40 Undesirable 40-59 Borderline >59 DesirablePerformed By: #### DALE MALDONADO, CDP #### [facility] [address] [place] [address] Piano Regulator: WOODROW Westfallholesterol in LDL [Mass/Vol]74 mg/dLNormal0-130 [facility] HospitalComment on above:Result Comment: LDL Guidelines: <100 Desirable 100-129 Near to/above Desirable 130-159 Borderline >159 Undesirable Direct (measured) LDL and calculated LDL are not interchangeable tests.Performed By: #### DALE MALDONADO, CDP #### [facility] [address] [place] [address] Piano Regulator: Kali Westfall.total/Cholesterol in HDL [Mass ratio]3.6 {ratio}Normal<5[facility] Luke Medical CenterComment on above: Performed By: #### DALE MALDONADO, CDP #### [facility] [address] [place] [address] Piano Regulator: Afshin Mansfield MDTriglyceride [Mass/Vol]71 mg/dLNormal<150MerCommunity Hospital of GardenaComment on above:Result Comment: Triglyceride Guidelines: <150 Desirable 150-199 Borderline 200-499 High >499 Very high Based on AHA Guidelines for fasting triglyceride, December 2011.Performed By: #### DALE MALDONADO, CDP #### [facility] [address] [place] [address] Piano Regulator: LATRICIA Westfall WO CONTRASTon [id number] BRAIN W WO CONTRASTEXAMINATION: MRI OF THE [...] by: Anders Shepard MD 11/28/21 Final resultNormalMercy Park Sanitariumubacute ischemia involving the right parietal/temporal lobe with [...] mass effect, and minimal leftward midline shift. [employer] Work Phone: radiology Study observation (narrative)[email or web address] Phone: MRI BRAIN W WO CONTRASTOrdered By: Anders Shepard on [id number] [employer] Work Phone: Magnesiumon 49-00-3114Ojaymiebx [Mass/Vol]1.5 mg/dLLow 1.6-2.6Mer[facility] [address] Luke Medical CenterComment on above:Performed By: #### JOEL, BMP, CDP #### [facility] [place] [address] Piano Regulator: Afshin Mansfield MDInterpretation and review of laboratory results AbnormalBON TigerTextMagnesium [Mass/Vol]1.5 mg/dLLow1.6 - 2.6 mg/dL [facility] TigerTextDIGN[facility] TigerTextNo Panel Informationon . Findings appear most consistent [...] to Dr. Velázquez on 11/28/2021 at 06:40. [facility] RIS CONSOLIDATEDEXAMINATION: CT OF THE [...] venous sinus thrombosis on this non-dedicated study. [facility] Adalberto Green MD - 11/28/2021 [...] to Dr. Velázquez on 11/28/2021 at 06:40. [facility] [employer] Work Phone: No Panel InformationOrdered By: Adalberto Escobar on [id number] [facility] Work Phone: POC Glucose Fingerstickon 68-22-3531Dmldjfu [Mass/Vol] 223 mg/cUMier49 - 110 mg/dLBON ST. JOHN OF GOD HOSPITALInterpretation and review of laboratory resultsAbnormDickenson Community Hospital Glucose [Mass/Vol]242 mg/oPWpvs65 - 110 mg/dLB[facility] Interpretation and review of laboratory resultsAbnormDominion HospitalGlucose [Mass/Vol]262 mg/xPUzsk24 - 110 mg/dLB[address] ST. [facility] OF GOD HOSPITALInterpretation and review of laboratory resultsAbnormalVALLEY HEALTHGlucose [Mass/Vol]317 mg/zWBskn57 - 110 mg/dLB[address] ST[address] [facility] OF GOD HOSPITALInterpretation and review of laboratory results AbnormalBON CHILDREN'S CARE HOSPITAL AND SCHOOLPROF 14(COMP METB)on 32-62-6019Mrwjahx [Mass/Vol]3.7 g/dLNormal3.4-5.0The [facility] HospitalComment on above:Performed By: #### HSTROPN, CMP, CRP #### [facility] [address] [place] [address] Dr. Sea PughAlbumin/Globulin [Mass ratio]0.9 {ratio}NormalThe [facility] HospitalComment on above:Performed By: #### HSTROPN, CMP, CRP #### [facility] [address] [address] [address] Sea OrourkeP [Catalytic activity/Vol]150 U/LCritically yikt03-321Grp [facility] HospitalComment on above:Performed By: #### HSTROPN, CMP, CRP #### [facility] [address] [address] [address] Sea OrourkeT [Catalytic activity/Vol]23 U/PXoopid05-54Czp [facility] HospitalComment on above:Performed By: #### HSTROPN, CMP, CRP #### [facility] [address] [place] [address] Dr. Sea PughAnion gap [Moles/Vol]9.8 mmol/LNormalThe [facility] HospitalComment on above:Performed By: #### HSTROPN, CMP, CRP #### [facility] [address] [place] [address] Dr. Sea PughAST [Catalytic activity/Vol]20 U/WZalrdb65-73Ple [facility] HospitalComment on above:Performed By: #### HSTROPN, CMP, CRP #### [facility] [address] [place] [address] Dr. Sea PughBilirubin [Mass/Vol]1.2 mg/dLCritically high0.2-1.0The [facility] HospitalComment on above:Performed By: #### HSTROPN, CMP, CRP #### [facility] [address] [place] [address] Dr. Sea PughCalcium [Mass/Vol]8.5 mg/dLNormal8.5-10.1[facility] Comment on above:Performed By: #### HSTROPN, CMP, CRP #### [facility] [address] [place] [address] Dr. Sea PughChloride [Moles/Vol]100 mmol/IDgoztj57-000Iks [facility] Comment on above:Performed By: #### HSTROPN, CMP, CRP #### [facility] [address] [address] [address] Sea PughCO2 [Moles/Vol]26.8 mmol/OGfjhig62.0-32.0[facility] Comment on above:Performed By: #### HSTROPN, CMP, CRP #### [facility] [address] [place] [address] Dr. Sea PughCreatinine [Mass/Vol]1.21 mg/dLNormal0.70-1.30[facility] Galion HospitalComment on above:Performed By: #### HSTROPN, CMP, CRP #### [facility] [address] [place] [address] Dr. Osei ChangEGFR-AF LITHUANIAN>60Normal>=60The [facility] HospitalComment on above:Performed By: #### HSTROPN, CMP, CRP #### [facility] [address] [place] [address] Dr. Sea FordGFR-NON AF ECLBWMSX64 mL/min/1.89t1Ypaensmbbs low>=60The [facility] HospitalComment on above:Performed By: #### HSTROPN, CMP, CRP #### [facility] [address] [place] [address] Dr. Sea PughGlobulin (S) [Mass/Vol]3.9 g/dLNormalThe [facility] HospitalComment on above:Performed By: #### HSTROPN, CMP, CRP #### [facility] [address] [place] [address] Dr. Sea PughGlucose [Mass/Vol]165 mg/dLCritically pzpz29-661Xmr [facility] HospitalComment on above:Performed By: #### HSTROPN, CMP, CRP #### [facility] [address] [place] [address] Dr. Sea PughPotassium [Moles/Vol]3.6 mmol/LNormal3.5-5.1The [facility] Comment on above:Performed By: #### HSTROPN, CMP, CRP #### [facility] [address] [address] [address] Sae PughProtein [Mass/Vol]7.6 g/dLNormal6.4-8.2The [facility] Comment on above:Performed By: #### HSTROPN, CMP, CRP #### [facility] [address] [address] [address] Sea PughSodium [Moles/Vol]133 mmol/LCritically ocn851-430Hnz [facility] HospitalComment on above:Performed By: #### HSTROPN, CMP, CRP #### [facility] [address] [address] [address] Sea PughUrea nitrogen [Mass/Vol]9.0 mg/dLNormal7.0-18.0The [facility] HospitalComment on above:Performed By: #### HSTROPN, CMP, CRP #### [facility] [address] [address] [address] Sea PughUrea nitrogen/Creatinine [Mass ratio]7.4 mg/mgNormalThe [facility] Mentor HospitalComment on above:Performed By: #### HSTROPN, CMP, CRP #### [facility] [address] [place] [address] Dr. Sea PughProcalcitoninon 93-98-2418Zxlvewdrskbqt3.10 ng/mLHigh<0.09[facility] Perrysburg HospitalComment on above:Result Comment: Suspected Sepsis: <0.50 ng/mL [...] entered into the Change in Procalcitonin Calculator (www.fyzrzk-coi-piphyradgw.com) to determine the patient's Mortality Risk Prognosis In healthy neonates, plasma Procalcitonin (PCT) concentrations increase gradually after , reaching peak values at about 24 hours of age then decrease to normal values below 0.5 ng/mL by 48-72 hours of age.Performed By: #### IOCAL, BMP, CDP #### [facility] [address] [id number] Piano Regulator: Afshin Mansfield MDInterpretation and review of laboratory results AbnormalCLINCH VALLEY MEDICAL CENTERProcalcitonin0.1 ng/mLHighNINF - 0.09 ng/mLCLINCH VALLEY MEDICAL CENTERComment on above: Suspected Sepsis: <0.50 ng/mL Low [...] entered into the Change in Procalcitonin Calculator (www.sdhxuh-ett-vmfatbnsis.Infracommerce) to determine the patient's Mortality Risk Prognosis In healthy neonates, plasma Procalcitonin (PCT) concentrations increase gradually after , reaching peak values at about 24 hours of age then decrease to normal values below 0.5 ng/mL by 48-72 hours of age. CLINCH VALLEY MEDICAL CENTERSED RATE WESTERGRENon 42-90-5706MGO RATE42 mm/hr Critically high<=20The [facility] HospitalComment on above:Performed By: #### SEDR #### [facility] [address], [place] [address] Dr. Sea Burnette, HIGH SENSITIVITYon 67-65-0219FBZLBO6.0 pg/mLNormal 4.0-76.1The López HospitalComment on above:Result Comment: CUT-OFF POINTS HAVE BEEN ESTABLISHED BASED ON THE FOURTH UNIVERSAL DEFINITIONS OF MYOCARDIAL INFARCTION. THE UPPER REFERENCE LIMIT (URL) OF TROPONIN, DEFINED THE 99TH PERCENTILE OF cTnI DISTRIBUTION IN A REFERENCE POPULATION, HAS BEEN CONFIRMED THE DECISION THRESHOLD FOR NM DIAGNOSIS.Performed By: #### HSTROPN, CMP, CRP #### [facility] [address] [address] [address] Sea Cabrera Visit (Cardiology)on 82-86-8341Fxgsdu-up visit Diagnoses/Problems Assessed Persistent atrial fibrillation (427.31) [...] Metabolic Panel; Status:Active - Retrospective Authorization; Requested for:[id number]; Overweight with body mass index (BMI) of 28 to 28.9 in adult Healthy Weight Tips; Status:Complete - Retrospective Authorization; Done: [id number] Some eating tips that can help you lose weight.; Status:Complete - Retrospective Authorization; Done: [id number] Persistent atrial fibrillation IO EKG Electrocardiogram- 12 Lead; Status:Complete; Done: [id number] Single vessel coronary disease Renew: Aspirin EC 81 MG Oral Tablet Delayed Release; TAKE 1 TABLET DAILY Renew: Atorvastatin Calcium 80 MG Oral Tablet (Lipitor); TAKE 1 TABLET DAILY SocHx: Former smoker Tobacco Use Screening; Status:Complete; Done: [id number] Patient Instructions Please bring all medicines, vitamins, [...] us (more content not included)...NormalUH TouchworksTobacco Screening.on 98-71-6201Sbws risk assessmenta) No falls within the last yearHigh[facility] iBuyitBetter 250 DO Work Phone: Tobacco use status CPHSb) NoMMason General Hospital Analyte Health 250 DO Work Phone: BNPon 35-74-6008Qeptzdntoey peptide B (Bld) [Mass/Vol] 836.0 pg/mLNormal<=900.0The [facility] HospitalComment on above:Performed By: #### HSTROPN, CMP, BNP ####[facility] [address] [place], [place] [address]TkDr. Sea Rachel AUTO DIFFon 43-91-9330SCIS #0.1 103/ulNormal0.0-0.1The [facility] HospitalComment on above:Performed By: #### DDIM #### [facility] [address] [address] [address] Sea Cornejophils/100 WBC (Bld)0.5 %Normal0.2-2.0[facility] Comment on above:Performed By: #### DDIM #### [facility] [address] [address] [address] Yilan ChangEO #0.3 103/ulNormal0.0-0.7The [facility] HospitalComment on above: Performed By: #### DDIM #### [facility] [address] [place] [address] Dr. Sea Fordosinophils/100 WBC (Bld)3.3 %Normal0.9-7.0[facility] Comment on above:Performed By: #### DDIM #### [facility] [address] [place] [address] Dr. Sea Fordrythrocyte distribution width (RBC) [Ratio]13.7 %Fldtew13.0-15.0 [facility] HospitalComment on above:Performed By: #### DDIM #### [facility] [address] [place] [address] Dr. Sea PughHematocrit (Bld) [Volume fraction]41.3 %Critically low42.0-54.0 [facility] HospitalComment on above:Performed By: #### DDIM #### [facility] [address] [place] [address] Dr. Sea PughHemoglobin (Bld) [Mass/Vol]14.0 g/iUXncoxf08.0-18.0The [facility] HospitalComment on above:Performed By: #### DDIM #### [facility] [address] [place] [address] Dr. Sea Anguiano #0.04 10e3/ulCritically high0.00-0.03[facility] Comment on above:Performed By: #### DDIM #### [facility] [address] [place] [address] Dr. Sea Anguiano %0.4 %Normal0.0-0.5The [facility] HospitalComment on above: Performed By: #### DDIM #### [facility] [address] [place] [address] Dr. Sea PrinceH #1.3 103/ulNormal1.2-3.8The [facility] HospitalComment on above:Performed By: #### DDIM #### [facility] [address] [place] [address] Dr. Sea Novamphocytes/100 WBC (Bld)13.1 %Critically low20.5-60.0The [facility] HospitalComment on above:Performed By: #### DDIM #### [facility] [address] [place] [address] Dr. Sea SoniUAL DIFF REQNONormalThe [facility] HospitalComment on above: Performed By: #### DDIM #### [facility] [address] [place] [address] Dr. Sea Steele (RBC) [Entitic mass]30.2 acHajrmw56.9-34.0The [facility] HospitalComment on above:Performed By: #### DDIM #### [facility] [address] [place] [address] Dr. Sea Steele (RBC) [Mass/Vol]33.9 g/pAUyawlq39.9-35.2The [facility] HospitalComment on above:Performed By: #### DDIM #### [facility] [address] [place] [address] Dr. Sea Steele (RBC) [Entitic vol]89.0 nKAykrri42.0-94.0The [facility] HospitalComment on above:Performed By: #### DDIM #### [facility] [address] [place] [address] Dr. Sea Rain #1.0 103/ulCritically high0.3-0.8ThKettering Health Comment on above:Performed By: #### DDIM #### [facility] [address] [place] [address] Dr. Sea Bansalocytes/100 WBC (Bld)9.8 %Normal1.7-12.0[facility] Comment on above:Performed By: #### DDIM #### [facility] [address] [place] [address] Dr. Sea Zapata #7.1 103/ulCritically high1.4-6.5The [facility] Comment on above:Performed By: #### DDIM #### [facility] [address] [place] [address] Dr. Sea PughNeutrophils/100 WBC (Bld)72.9 %Cdhuuu09.0-75.0The [facility] HospitalComment on above:Performed By: #### DDIM #### [facility] [address] [place] [address] Dr. Sea PughPlatelet mean volume (Bld) [Entitic vol]9.7 fLNormal9.5-13.5The [facility] HospitalComment on above:Performed By: #### DDIM #### [facility] [address] [place] [address] Dr. Sea PughPLT247 103/ppQrxzgq645-485Wft [facility] HospitalComment on above: Performed By: #### DDIM #### [facility] [address] [place] [address] Dr. Sea PughRBC4.64 106/ulCritically low4.70-6.10The [facility] HospitalComment on above:Performed By: #### DDIM #### [facility] [address] [place] [address] Dr. Sea PughWBC9.8 103/ulNormal4.0-11.0The [facility] HospitalComment on above: Performed By: #### DDIM #### [facility] [address] [place] [address] Dr. Sea Schultz CHEST WO W CONon [id number] CHEST WO W CONCTA CHEST WITH IV [...] The subdiaphragmatic abdominal organs included in the ipqnv-pp-bcor do not demonstrate any acute abnormality. IMPRESSION: 1. Normal-appearing thoracic aorta. 2. No CT evidence for acute pulmonary embolus. 3. Otherwise unremarkable CT scan of the chest for acute pathology. Electronically authenticated by: OBI MIDDLETON Date: 2021-09-22 19:33NoRegency Hospital Cleveland EastCovid-19 PCR ([facility] SYSTEMTB)on 87-24-0848PILC-CoV-2 (COVID-19) RNA [place]+probe Ql (Unsp spec)Not detectedNormalNOT DETECTEDThe [facility] Comment on above:Result Comment: When diagnostic [...] for this test is supported by the [place] of Health and Human Service's declaration that [...] used).Performed By: #### HSTROPN, CMP, CRP #### [facility] [address] [address] [address] Sea Hodge 14(COMP METB)on 50-65-4746Cneackb [Mass/Vol]3.6 g/dLNormal 3.4-5.0The [facility] HospitalComment on above:Performed By: #### HSTROPN, CMP, BNP ####[facility] [address] [address]Dr. Sea PughAlbumin/Globulin [Mass ratio]0.9 {ratio}NormalAvita Health System [facility] Comment on above:Performed By: #### HSTROPN, CMP, BNP ####[facility] [address] [address]Dr. Sea ChangALP [Catalytic activity/Vol]143 U/LCritically ytlq68-798Pqe [facility] HospitalComment on above: Performed By: #### HSTROPN, CMP, BNP ####[facility] [address] [address]Dr. Sea ChangALT [Catalytic activity/Vol]28 U/L Rjbwkz97-48Vgv [facility] HospitalComment on above:Performed By: #### HSTROPN, CMP, BNP ####[facility] [address] [address]Dr. Sea ChangAnion gap [Moles/Vol]12.6 mmol/LNormalAv[facility] Comment on above:Performed By: #### HSTROPN, CMP, BNP ####[facility] [address] [address]Dr. Yilan ChangAST [Catalytic activity/Vol]18 U/EViwcmv66-37Scx [facility] HospitalComment on above:Performed By: #### HSTROPN, CMP, BNP ####[facility] [address] [address]Dr. Sea ChangBilirubin [Mass/Vol]1.1 mg/dLCritically high0.2-1.0The [facility] HospitalComment on above:Performed By: #### HSTROPN, CMP, BNP ####[facility] [address] [address]Dr. Yilan ChangCalcium [Mass/Vol]8.7 mg/dLNormal8.5-10.1The [facility] HospitalComment on above:Performed By: #### HSTROPN, CMP, BNP ####[facility] [address] [address]Dr. Yilan Pugh Chloride [Moles/Vol]100 mmol/VSfjies47-244Lue [facility] HospitalComment on above: Performed By: #### HSTROPN, CMP, BNP ####[facility] [address] [address]Dr. Yilan ChangCO2 [Moles/Vol]27.1 mmol/LNormal 21.0-32.0The [facility] HospitalComment on above:Performed By: #### HSTROPN, CMP, BNP ####[facility] [address] [address]Dr. Yilan ChangCreatinine [Mass/Vol]1.15 mg/dLNormal0.70-1.30The [facility] Comment on above:Performed By: #### HSTROPN, CMP, BNP ####[facility] [address] [address]Dr. Yilan ChangEGFR-AF LITHUANIAN>60Normal>=60The [facility] HospitalComment on above:Performed By: #### HSTROPN, CMP, BNP ####[facility] [address] [address]Dr. Yilan ChangEGFR-NON AF LITHUANIAN>60Normal>=60[facility] Comment on above:Performed By: #### HSTROPN, CMP, BNP ####[facility] [address] [address]Dr. Yilan ChangGlobulin (S) [Mass/Vol]3.9 g/dLNormalThe [facility] HospitalComment on above:Performed By: #### LILIANTROPN, CMP, BNP ####[facility] [address] [address]Dr. Yilan ChangGlucose [Mass/Vol]214 mg/dLCritically wgpq99-238Mub [facility] HospitalComment on above:Performed By: #### HSTROPN, CMP, BNP ####[facility] [address] [address]Dr. Yilan ChangPotassium [Moles/Vol]3.7 mmol/LNormal3.5-5.1The [facility] Comment on above:Performed By: #### LILIANTROPN CMP, BNP ####[facility] [address] [address]Dr. Yilan ChangProtein [Mass/Vol]7.5 g/dLNormal6.4-8.2The [facility] HospitalComment on above:Performed By: #### LILIANTROPN, CMP, BNP ####[facility] [address] [place], [place] [address]Dr. Yilan ChangSodium [Moles/Vol]136 mmol/LNormal 136-145The [facility] HospitalCommclaren greater [facility] hospital on above:Performed By: #### LILIANTROPN, CMP, BNP ####[facility] [address] [address]Dr. Yilan ChangUrea nitrogen [Mass/Vol]13.0 mg/dLNormal7.0-18.0The [facility] Comment on above:Performed By: #### HSTROPN, CMP, BNP ####[facility] [address] [address]Dr. Yilan ChangUrea nitrogen/Creatinine [Mass ratio]11.3 mg/mgNoRegency Hospital Cleveland EastCommclaren greater lansing hospital on above:Performed By: #### HSTROPN, CMP, BNP ####[facility] [address] [place], [place] [address]Dr. Yilan ChangPROTIMEon 40-13-6202MTI Coag (PPP) [Relative time]1.07 {INR}NormalThe López HospitalComment on above: Performed By: #### PT, PTT ####[facility] [address] [address]Dr. Sea PughINR GUIDELINESSEE BELOWNoRegency Hospital Cleveland EastComment on above:Result Comment: DESIRED INR: 2.0 - 3.0 CONDITIONS NOT LISTED BELOW 2.5 - 3.5 FOR PROSTHETIC HEART VALVE REPLACEMENT 2.5 - 3.5 RECURRENT THROMBOSISPerformed By: #### PT, PTT ####[facility] [address] [address]Dr. Sea KeatonPT Coag (PPP) [Time]11.5 sNormal9.0-11.6The [facility] on above:Performed By: #### PT, PTT ####[facility] [address] [address]Dr. Sea PughPTTon 16-66-3160iWQI Coag (Bld) [Time]30.2 yShukhe51.3-36.2 The [facility] HospitalCommclaren greater lansing hospital on above:Performed By: #### PT, PTT ####[facility] [address] [address]Dr. Sea Pugh TROPONIN, HIGH SENSITIVITYon 09-49-5873BKTTWN2.5 pg/mLNormal4.0-76.1The [facility] on above:Result Comment: CUT-OFF POINTS HAVE BEEN ESTABLISHED BASED ON THE FOURTH UNIVERSAL DEFINITIONS OF MYOCARDIAL INFARCTION. THE UPPER REFERENCE LIMIT (URL) OF TROPONIN, DEFINED THE 99TH PERCENTILE OF cTnI DISTRIBUTION IN A REFERENCE POPULATION, HAS BEEN CONFIRMED THE DECISION THRESHOLD FOR NM DIAGNOSIS.Performed By: #### HSTROPN, CMP, BNP ####[facility] [address] [address]Dr. Sea PughXR CHEST 1 Von [id number] CHEST 1 VEXAM: XR CHEST 1 V [...] Electronically authenticated by: FARIBA MCCLURE Date: 2021-09-22 19:39[facility] HospitalCT HEAD WO CONon [id number] HEAD WO CONCT head without contrast CLINICAL: [...] Electronically authenticated by: KENY GREENE Date: 2021-08-26 09:53[facility] HospitalCT ORBIT WO CONon [id number] ORBIT WO CONCT cervical spine CLINICAL: HEADACHE [...] Electronically authenticated by: KENY GREENE Date: 2021-08-26 10:03[facility] W MANUAL DIFFon [id number] LYMPH #NormalThe [facility] Whitley HospitalComment on above:Performed By: #### DDIM #### [facility] [address] [place] [address] Dr. Sea PughATYPICAL LYMPH %NormalAvita Health System Galion HospitalComment on above: Performed By: #### DDIM #### [facility] [address] [place] [address] Dr. Sea Li #Normal0.0-0.3The [facility] HospitalComment on above: Performed By: #### DDIM #### [facility] [address] [place] [address] Dr. Sea Li %Normal0-5The [facility] HospitalComment on above:Performed By: #### DDIM #### [facility] [address] [place] [address] Dr. Sea Daniels #0.00 103/ulNormal0.00-0.10The [facility] HospitalComment on above:Performed By: #### DDIM #### [facility] [address] [place] [address] Dr. Sea Daniels %0.0 %Critically low0.2-2.0The [facility] on above:Performed By: #### DDIM #### [facility] [address] [place] [address] Dr. Sea Estes #NormalThe [facility] HospitalComment on above:Performed By: #### DDIM #### [facility] [address] [place] [address] Dr. Sea Estes %NormalAvita Health System Galion HospitalComment on above:Performed By: #### DDIM #### [facility] [address] [place] [address] Dr. Sea JohnsonRRECTED WBCNormal4.0-11.0The [facility] HospitalCommclaren greater lansing hospital on above: Performed By: #### DDIM #### [facility] [address] [place] [address] Dr. Yilan ChangEOS #0.21 103/ulNormal0.00-0.70The [facility] HospitalComment on above:Performed By: #### DDIM #### [facility] [address] [place] [address] Dr. Sea Kidd%2.0 %Normal0.9-7.0The [facility] HospitalComment on above: Performed By: #### DDIM #### [facility] [address] [place] [address] Dr. Sea HenryT41.3 %Critically low42.0-54.0The [facility] HospitalComment on above:Performed By: #### DDIM #### [facility] [address] [place] [address] Dr. Sea PughHGB14.1 g/suYcwluw30.0-18.0The [facility] HospitalComment on above: Performed By: #### DDIM #### [facility] [address] [place] [address] Dr. Sea Alexandra #1.14 103/ulCritically low1.20-3.80The [facility] Comment on above:Performed By: #### DDIM #### [facility] [address] [place] [address] Dr. Sea Alexandra%11.0 %Critically low20.5-60.0The [facility] on above:Performed By: #### DDIM #### [facility] [address] [place] [address] Dr. Sea SteeleH30.9 zfCntllo37.9-34.0The [facility] HospitalComment on above: Performed By: #### DDIM #### [facility] [address] [place] [address] Dr. Sea SteeleHC34.1 g/ixCgoqhq32.9-35.2The [facility] HospitalComment on above:Performed By: #### DDIM #### [facility] [address] [place] [address] Dr. Sea SteeleV90.4 fEKyuzpq54.0-94.0The [facility] HospitalComment on above: Performed By: #### DDIM #### [facility] [address] [address] [address] Sea NovoaOCYTE #NormalThe [facility] HospitalComment on above: Performed By: #### DDIM #### [facility] [address] [address] [address] Sea NovoaOCYTE %NormalThe [facility] HospitalComment on above: Performed By: #### DDIM #### [facility] [address] [address] [address] Sea Betancourt#1.98 103/ulCritically high0.30-0.80The [facility] on above:Performed By: #### DDIM #### [facility] [address] [address] [address] Sea Betancourt%19.0 %Critically high1.7-12.0The [facility] HospitalComment on above:Performed By: #### DDIM #### [facility] [address] [address] [address] Sea PughMPV9.7 fLNormal9.5-13.5The [facility] HospitalComment on above: Performed By: #### DDIM #### [facility] [address] [address] [address] Sea Medina #NormalAvita Health System Galion HospitalComment on above:Performed By: #### DDIM #### [facility] [address] [address] [address] Sea CifuentesOCYTE %NormalAvita Health System Galion HospitalComment on above:Performed By: #### DDIM #### [facility] [address] [address] [address] Sea PughNRBCNormalThKettering HealthComment on above:Performed By: #### DDIM #### [facility] [address] [address] [address] Sea DiezT259 103/nrWxpwow466-627Gzr [facility] HospitalComment on above: Performed By: #### DDIM #### [facility] [address] [address] [address] Sea VázquezC4.57 106/ulCritically low4.70-6.10The [facility] HospitalComment on above:Performed By: #### DDIM #### [facility] [address] [address] [address] Sea PughRDW13.4 %Rzjsjf49.0-15.0The [facility] HospitalComment on above: Performed By: #### DDIM #### [facility] [address] [address] [address] Sea Treadwell #7.07 103/ulCritically high1.40-6.50The [facility] Comment on above:Performed By: #### DDIM #### [facility] [address] [place] [address] Dr. Sea Treadwell %68.0 %Kiyhyu22.0-75.0The [facility] HospitalComment on above: Performed By: #### DDIM #### [facility] [address] [place] [address] Dr. Sea PughWBC10.4 103/ulNormal4.0-11.0The [facility] HospitalComment on above:Performed By: #### DDIM #### [facility] [address] [place] [address] Dr. Sea PughPROF CHEM 8 (BAS METB)on 58-04-9650Yikmm gap [Moles/Vol]13.5 mmol/LNormalThe [facility] HospitalComment on above:Performed By: #### HSTROPN, CMP, CRP #### [facility] [address] [place] [address] Dr. Sea PughCalcium [Mass/Vol]8.7 mg/dLNormal8.5-10.1The [facility] Comment on above:Performed By: #### HSTROPN, CMP, CRP #### [facility] [address] [place] [address] Dr. Sea PughChloride [Moles/Vol]97 mmol/LCritically xzh93-264Fqo [facility] HospitalComment on above:Performed By: #### HSTROPN, CMP, CRP #### [facility] [address] [address] [address] Sea PughCO2 [Moles/Vol]24.2 mmol/GXiuupa35.0-32.0[facility] Comment on above:Performed By: #### HSTROPN, CMP, CRP #### [facility] [address] [address] [address] Sea PughCreatinine [Mass/Vol]1.26 mg/dLNormal0.70-1.30The [facility] HospitalComment on above:Performed By: #### HSTROPN, CMP, CRP #### [facility] [address] [address] [address] Osei ChangEGFR-AF LITHUANIAN>60Normal>=60The [facility] HospitalComment on above:Performed By: #### HSTROPN, CMP, CRP #### [facility] [address] [place] [address] Dr. Sea FordGFR-NON AF TONSBNZU05 mL/min/1.25k9Oehpaxdkpi low>=60The [facility] Hospitalment on above:Performed By: #### HSTROPN, CMP, CRP #### [facility] [address] [place] [address] Dr. Sea PughGlucose [Mass/Vol]201 mg/dLCritically fnjt32-232Pgd [facility] HospitalComment on above:Performed By: #### HSTROPN, CMP, CRP #### [facility] [facility] [address] [place] [address] Dr. Sea PughPotassium [Moles/Vol]3.7 mmol/LNormal3.5-5.1[facility] Comment on above:Performed By: #### HSTROPN, CMP, CRP #### [facility] [address] [place] [address] Dr. Sea PughSodium [Moles/Vol]131 mmol/LCritically icn215-937Qjv [facility] HospitalComment on above:Performed By: #### HSTROPN, CMP, CRP #### [facility] [address], [place] [address] Dr. Sea PughUrea nitrogen [Mass/Vol]21.0 mg/dLCritically high7.0-18.0[facility] HospitalCommclaren greater [facility] on above:Performed By: #### HSTROPN, CMP, CRP #### [facility] [address], [place] [address] Dr. Sea PughUrea nitrogen/Creatinine [Mass ratio]16.7 mg/mgNoRegency Hospital Cleveland EastComment on above:Performed By: #### HSTROPN, CMP, CRP #### [facility] [address], [place] [address] Dr. Sea PughXR CHEST 2 Von [id number] CHEST 2 VEXAM: XR CHEST 2 V [...] Electronically authenticated by: VICENTA MARCH Date: 2021-08-22 05:46[facility] HospitalXR SINUSES 3 VIEWS OR GREATERon [id number] SINUSES 3 VIEWS OR GREATERXR SINUSES 3 [...] Electronically authenticated by: LOULOU DAVIS Date: 2021-08-22 06:31NoRegency Hospital Cleveland EastTobacco Screening.on 24-67-1573Emnxx depression screening assessmentPark [facility]let [facility] [address] [facility] Work Phone: Fall risk assessmenta) No falls within the last year -[facility] [address] DO Work Phone: Tobacco use status CPHSb) [facility] [place] [facility] DO Work Phone: Vital Signs Date TimeVital SignValuePerforming UyhzpfgvfAapysmoi14-96-4274 16:38-0400Body .4 cmLwilder De[facility] ParkPro[facility]09-03-2025 16:38-0400Body mass index (BMI) [Ratio]24.01 kg/d3Wxnhavg [place] [facility]09-03-2025 16:38-0400Body tvmrve89.56 kgH[facility]09-03-2025 16:38-0400Diastolic blood lctsrhsy21 mm[Hg]Kristin [facility]09-03-2025 16:38-0400Heart rate64 /minProvidence Hospitalguille [facility] 11-23-2024 16:38-0400Systolic blood hspfleqp921 mm[Hg]Kristin [facility]08-20-2025 14:25-0400Body .4 [facility] 14:25-0400Body mass index (BMI) [Ratio]24.46 kg/p9RqtgjpTanner Medical Center [facility]08-20-2025 14:25-0400Body kidvvp67.1 kgT[facility] Medical Center [place]08-20-2025 14:25-0400Diastolic blood lxqngyes98 mm[Hg] [facility]08-20-2025 14:25-0400Heart rate61 /minTanner Medical Center [place]08-20-2025 14:25-0400Systolic blood yzplnxlu390 mm[Hg]Clyde [facility]08-14-2025 13:40-0400Body echdmj360.4 cmMarciano Hi DPM Work Phone: [facility] HospitalCmidcxzgxe47-45-6368 13:40-0400Body mass index (BMI) [Ratio]27.97 kg/p9DiblvxuiMarciano Hi DPM Work Phone: [facility] HospitalYjrwqixpfx33-30-0096 13:40-0400Body .16 kgTootiemedina Hi DPM Work Phone: [facility] HospitalIpksdnhuch15-60-8828 13:40-0400Respiratory rate16 /minMarciano Hi DPM Work Phone: [facility] HospitalEmafcjtxoo19-70-0345 14:28-0400Body .4 cmVeronica Liz MD Work Phone: 1(349)[address]08-06-2025 14:28-0400 Body mass index (BMI) [Ratio]24.28 kg/m8WdlimbeVeronica Liz MD Work Phone: 1(506)414[address]08-06-2025 14:28-0400 Body fownov03.46 kgVeronica Liz MD Work Phone: 1(459)[address]08-06-2025 14:28-0400 Diastolic blood cmuydbwg85 mm[Hg]Veronica Liz MD Work Phone: 1(435)[address]08-06-2025 14:28-0400 Heart rate62 /Brody Liz MD Work Phone: 1(858)[address]08-06-2025 14:28-0400 Systolic blood kibzzzyu248 mm[Hg]Veronica Liz MD Work Phone: 1(837)[address]03-06-2025 13:28-0500 Body wphtdo038.4 cmMarciano Hi DPM Work Phone: [facility] HospitalGyjcfoalpr66-19-6430 13:28-0500Body mass index (BMI) [Ratio]27.97 kg/v8Fuvrhxnm Brown DPM Work Phone: [facility] HospitalDwolemsrag87-50-4852 13:28-0500Body ayekmk92.16 kgNicpancho Brown DPM Work Phone: [facility] HospitalLmjupdgsja12-16-1268 13:28-0500Respiratory rate18 /minTootiemedina Hi DPM Work Phone: [facility] HospitalPrmhtonidv89-72-2485 13:45-0500Body msbisg750.4 cmVeronica Liz MD Work Phone: 1(862)605-[address] [place], [place] 1587001-29-2025 13:45-0500 Body mass index (BMI) [Ratio]26.25 kg/n9AhgltjpVeronica Liz MD Work Phone: 1(591)[address]01-29-2025 13:45-0500 Body tntoet91.27 kgVeronica Liz MD Work Phone: 1(025)[address]01-29-2025 13:45-0500 Diastolic blood ardxifua18 mm[Hg]Veronica Liz MD Work Phone: 1(908)[address]01-29-2025 13:45-0500 Heart rate61 /Brody Liz MD Work Phone: 1(490)[address] [place], [place] 1587001-29-2025 13:45-0500 Systolic blood zlqtccfo79 mm[Hg]Veronica Liz MD Work Phone: 1(874)[address]12-26-2024 11:51-0500 Body omdnvy319.4 cmFlorentinopancho Hi DPM Work Phone: [facility] HospitalIvyseuxupo51-87-8933 11:51-0500Body mass index (BMI) [Ratio]27.97 kg/w4Hkdavqla Brown DPM Work Phone: [facility] HospitalFdhxenkqfo08-58-3510 11:51-0500Body eprksg26.16 kgNicpancho Brown DPM Work Phone: [facility] HospitalTvncnymcbn74-41-9426 11:51-0500Respiratory rate18 /minMarciano Hi DPM Work Phone: [facility] HospitalSgvrrerjga62-09-3691 14:56-0500Body eulzwv906.4 cmVeronica Liz MD Work Phone: [phone]11-07-2024 14:56-0500 Body mass index (BMI) [Ratio]27.31 kg/x2SmpfronVeronica Liz MD Work Phone: 1(858)[address]11-07-2024 14:56-0500 Body .89 kgVeronica Liz MD Work Phone: 1(520)[address]11-07-2024 14:56-0500 Diastolic blood hyurxhpi96 mm[Hg]Veronica Liz MD Work Phone: 1(321)[address] [place], [place] 1587011-07-2024 14:56-0500 Heart rate55 /Brody Liz MD Work Phone: 1(895)[address] [place], [place] 1587011-07-2024 14:56-0500 Systolic blood qlifdxam142 mm[Hg]Veronica Liz MD Work Phone: 1(910)[address] [place], [place] 1587010-17-2024 13:51-0400 Body rbyvbv118.4 cmMarciano Hi DPM Work Phone: [facility] HospitalBpkicsapzy51-03-1957 13:51-0400Body mass index (BMI) [Ratio]27.97 kg/r2KiulkvrdMarciano Hi DPM Work Phone: [facility] HospitalWdlwhsydsq46-46-2680 13:51-0400Body nxesch12.16 kgMarciano Hi DPM Work Phone: [facility] HospitalEspygrvqkk56-67-0004 13:51-0400Diastolic blood qaipgnbt13 mm[Hg]Marciano Hi DPM Work Phone: 1(402)064-[address] [place], [place] [address]Zsphygqhvf08-98-6100 13:51-0400Heart rate81 /min Marciano Hi DPM Work Phone: [facility] HospitalVyaynfbuod55-97-6016 13:51-0400Systolic blood ilmtwdnv067 mm[Hg]Marciano Hi DPM Work Phone: [facility] HospitalRnolwjrcob48-20-2959 15:50-0400Diastolic blood ositbwsn75 mm[Hg]Veronica Liz MD Work Phone: 1(002)[address]05-09-2024 15:50-0400 Systolic blood lhozvdbe221 mm[Hg]Veronica Liz MD Work Phone: 1(844)414[address]05-09-2024 14:47-0400 Body cbukyo960.4 cmVeronica Liz MD Work Phone: 1(613)[address]05-09-2024 14:47-0400 Body mass index (BMI) [Ratio]28.1 kg/l5YxgiphuVeronica Liz MD Work Phone: 1(186)[address]05-09-2024 14:47-0400 Body ftpqby82.62 kgVeronica Liz MD Work Phone: 1(979)[address]05-09-2024 14:47-0400 Heart rate96 /minVeronica Liz MD Work Phone: 1(639)[address]11-09-2023 14:35-0500 Body ywykxy180.4 cmVeronica Liz MD Work Phone: 1(550)[address]11-09-2023 14:35-0500 Body mass index (BMI) [Ratio]28.89 kg/u2JszmizmVeronica Liz MD Work Phone: 1(964)[address]11-09-2023 14:35-0500 Body iqgtor56.34 kgVeronica Liz MD Work Phone: 1(838)[address]11-09-2023 14:35-0500 Diastolic blood mm[Hg]Veronica Liz MD Work Phone: [facility]11-09-2023 14:35-0500 Heart rate62 /minVeronica Liz MD Work Phone: [facility]11-09-2023 14:35-0500 Systolic blood gngifopa992 mm[Hg]Veronica Liz MD Work Phone: [facility]05-17-2023 13:15-0400 Body uhdmut331.42 cmCharles P House Work Phone: mp823-6284BU-Pxnhz [place] [facility] [address] [place] Work Phone: 1(154)[phone] 13:15-0400Body mass index (BMI) [Ratio] 28.23 kg/e4Wvfvmlm P House Work Phone: mp659-7266FN-Ucfhi [place] [facility] [address] [place] Work Phone: 1(677)[phone] 13:15-0400Body surface area Derived from formula2.21 d4Ictvxlo P House Work Phone: mp291-5863IH-Lvoap [place] [facility] [address] [place] Work Phone: 1(116)[phone] 13:15-0400Body swfpax67.07 kgCharles P House Work Phone: mp481-6422WJ-Btqbg [place] [facility] [address] [place] Work Phone: 1(130) 291-753705-17-2023 13:15-0400Diastolic blood kyamqhtq74 mm[Hg] Valente P House Work Phone: mp905-5188GW-Wohoa [place] [facility] [address] [place] Work Phone: 1(656)827-722-049271-37305385-01-1383 13:15-0400Heart rate57 /minCharles P House Work Phone: mp309-8192PS-Mvrem [place] [facility] [address] [place] Work Phone: 1(271) 957-287405-17-2023 13:15-0400Systolic blood xsgirxsn866 mm[Hg] Valente P House Work Phone: mp069-2057HB-Asxri [place] [facility] [address] [place] Work Phone: 1(903)032-982-032586-22071958-22-9403 09:22-0400Body .42 cmCharles P House Work Phone: mp313-7499YY-Bodjh [place] [facility] [address] DO Work Phone: 1(832) 232-748103-17-2023 09:22-0400Body mass index (BMI) [Ratio] 27.84 kg/m4Vrxeljl P House Work Phone: mp292-3298VR-Zdcjp [place] [facility] [address] DO Work Phone: 1(349) 848-414903-17-2023 09:22-0400Body surface area Derived from formula2.2 j8Ttchbnh P House Work Phone: mp020-5301WE-Xqkku [place] [facility] [address] DO Work Phone: 1(349)[phone] 09:22-0400Body .71 kgCharles P House Work Phone: mp940-6227OT-Cklrd [place] [facility] [address] DO Work Phone: 1(309) 528-221403-17-2023 09:22-0400Diastolic blood kgtedjdn34 mm[Hg] Valente P House Work Phone: mp263-7537XA-Psdre [place] [facility] [address] DO Work Phone: 1(795)[phone] 09:22-0400Heart rate80 /minCharles P House Work Phone: mp991-1500LY-Fqbfe [place] [facility] [address] DO Work Phone: 1(103) 561-970003-17-2023 09:22-0400Systolic blood wobkpetr223 mm[Hg] Valente P House Work Phone: mp743-9898QT-Bojzc [place] [facility] [address] DO Work Phone: 1(774) 226-377603-16-2023 13:14-0400Body zvusvo553.42 cmCharles P House Work Phone: mp464-4619EK-Lynbp [place] [facility] [address] DO Work Phone: 1(862) 259-613103-16-2023 13:14-0400Body mass index (BMI) [Ratio] 27.84 kg/s0Yrwrnlo P House Work Phone: mp999-9874MQ-Ilheo [place] [facility] [address] DO Work Phone: 1(329) 558-459803-16-2023 13:14-0400Body surface area Derived from formula2.2 y2Wcymkyf P House Work Phone: 1(158) 353-8038726-8171MX-Dwoum [place] [facility] [address] DO Work Phone: 1(647) 546-551803-16-2023 13:14-0400Body rfjyuh47.71 kgCharmarianela P House Work Phone: 1(679) 594-3640889-2896NB-Qbqbn [place] [facility] [address] DO Work Phone: 1(794) 993-702503-16-2023 13:14-0400Diastolic blood vquaoran22 mm[Hg] Valente Ortega House Work Phone: 1(518) 124-3039153-8642BH-Epgby [place] [facility] [address] DO Work Phone: 1(802) 800-189803-16-2023 13:14-0400Heart srej507 /minCharles P House Work Phone: 1(129) 964-2180473-2061GN-Jieno [place] [facility] 250 DO Work Phone: 1(688) 977-329803-16-2023 13:14-0400Systolic blood snhdvqne551 mm[Hg] Valente P House Work Phone: 1(155) 351-2636004-4294SE-Vxovw [place] [facility] [address] DO Work Phone: 1(191) 344-682409-14-2022 10:00-0400Diastolic blood fyldgbcg99 mm[Hg] Neal Velázquez MD Work Phone: bon [facility] XZXHNK45-42-3979 10:00-0400Heart rate82 /minPaul Eber LEW Work Phone: bon [facility] RRQXEO23-28-1102 10:00-0400 Respiratory rate18 /minPaul Eber LEW Work Phone: [facility]09-14-2022 10:00-6610OsX5% (BldA) [Mass fraction]95 %Neal Velázquez MD Work Phone: [facility]09-14-2022 10:00-0400Systolic blood ekmuqepa619 mm[Hg]Neal Velázquez MD Work Phone: [facility]09-14-2022 08:00-0400Body scyvusiphwe15.9 [degF]Neal Velázquez MD Work Phone: [facility]09-08-2022 03:30-0400Body cynavf624.4 cmPdamián Velázquez MD Work Phone: [facility]09-08-2022 03:30-0400Body mass index (BMI) [Ratio]27.34 kg/m2Paul Eber LEW Work Phone: [facility]09-08-2022 03:30-0400Body kgPaul Eber LEW Work Phone: [facility]09-07-2022 14:19-0400Diastolic blood xehgaeov55 mm[Hg]Valente P House Work Phone: mp163-4316CA-Kubcg [place] [employer] 250 DO Work Phone: 1(651) 183-701209-07-2022 14:19-0400Systolic blood ihuwobfk561 mm[Hg] Valente P House Work Phone: mp446-6312RB-Bekpu [place] [employer] 250 DO Work Phone: 1(536) 331-823909-07-2022 13:40-0400Body irteyr244.42 cmCharles P House Work Phone: mp347-7962JX-Bcgmw [place] [employer] [address] DO Work Phone: 1(534) 246-849209-07-2022 13:40-0400Body mass index (BMI) [Ratio] 28.63 kg/r6Eugvsfl P House Work Phone: mp364-9034IB-Aduxa [place] [employer] [address] DO Work Phone: 1(659) 388-146109-07-2022 13:40-0400Body surface area Derived from formula2.23 n2Pvogsbh P House Work Phone: mp587-0424QJ-Rxlqk [place] [employer] 250 DO Work Phone: 1(947) 628-968409-07-2022 13:40-0400Body gbybmi58.43 kgCharles P House Work Phone: mp232-4238ZF-Fiman [place] [employer] [address] DO Work Phone: 1(285) 502-522809-07-2022 13:40-0400Diastolic blood hvkufnwd54 mm[Hg] Valente P House Work Phone: mp952-5126JF-Kwphi [place] [employer] [address] DO Work Phone: 1(332) 203-480909-07-2022 13:40-0400Heart rate61 /minCharles P House Work Phone: mp368-1868FC-Xwljw [place] [employer] 250 DO Work Phone: 1(899) [phone] 13:40-0400Systolic blood eowaiypc705 mm[Hg] Valente P House Work Phone: mp250-8329EK-Ydjtk [place] [employer] 250 DO Work Phone: 1(573) 145-207706-28-2022 12:15-0400Body drnipe121.42 cmThomas Olexa Other [employer] Other 06-28-2022 12:15-0400Body mass index (BMI) [Ratio] 28.49 kg/m5Vpfrmu [employer] Other [employer] Other 06-28-2022 12:15-0400Body cbevfn23.98 kgThomas Olexa Other [employer] Other 06-09-2022 10:30-0400Body synfqc545.42 cmThomas Olexa Other [employer] Other 06-09-2022 10:30-0400Body mass index (BMI) [Ratio] 28.49 kg/m8Apzxfm [facility]lex[facility] Other [facility] Other 06-09-2022 10:30-0400Body surlmp34.98 kgThomas Olexa Other [facility] Other 03-02-2022 13:17-0500Body yuxapb463.42 cmCharles P House Work Phone: mp784-4125NH-Jjyhy [place] [employer] [address] DO Work Phone: 1(851) 246-823703-02-2022 13:17-0500Body mass index (BMI) [Ratio] 29.95 kg/w7Fgirfgg P House Work Phone: mp770-6248GD-Dywke [place] [employer] [address] DO Work Phone: 1(953) 259-874003-02-2022 13:17-0500Body surface area Derived from formula2.27 b2Xejmjbt P House Work Phone: mp132-6866PN-Xaqjp [place] [employer]-[place] [address] DO Work Phone: 1(797) 681-618903-02-2022 13:17-0500Body vtammb483.97 kgCharles P House Work Phone: mp327-8879EQ-Vlmzv [place] [employer]-[place] [address] DO Work Phone: 1(963) 336-658103-02-2022 13:17-0500Diastolic blood mm[Hg] Valente P House Work Phone: mp660-1383DL-Gxlwc [place] [facility] [address] DO Work Phone: 1(405) 560-964703-02-2022 13:17-0500Heart rate60 /minCharles P House Work Phone: mp862-8040TN-Zdgbj [place] [facility] [address] DO Work Phone: 1(801) 751-918903-02-2022 13:17-0500Systolic blood xqfvinxp767 mm[Hg] Valente P House Work Phone: mp128-5077ND-Pleyw [place] [employer]-[place] [address] DO Work Phone: Encounters Encounter DateEncounter TypeCare ProviderFacilityStart: 01-12-2025 End: 64-38-8480Nqapzqxjz department patient visitTim ThomasFacility:FTMCStart: 12-15-2024 End: 06-24-2037vvhvhidfzkPcfzrgqFilippo Chua [facility] Work Phone: Start: 12-15-2024 End: 85-16-8666Nqklbhbt ReferredGliles Mae DO-LAB [facility] Start: 11-23-2024 End: 27-97-8644Slhlcppuvqfm / ancillary services managementKristin Mcmanus [facility] County HospitalComment on above:High risk medication use; Persistent atrial fibrillation (Multi)Start: 11-23-2024 End: 31-38-2867xhavjufkpaMQLIKONWellstar [facility] AmbulatoryStart: 11-09-2024 End: 56-77-1286Ypurysaerliz / ancillary services managementClyde Yoo [facility] HospitalComment on above:Persistent atrial fibrillation (Multi) (Primary Dx); High risk medication useStart: 11-09-2024 End: 88-92-5690qkiteygtlyJKWMTZKWellstar [facility] Center AmbulatoryStart: 11-03-2024 End: 51-87-6715Vgblra outpatient visit 10 minutesNicholas A Brown DPM Work Phone: NOMS CI PODIATRYComment on above:Xerosis cutis (Primary Dx); Diabetes 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, unspecified whether ad terminal makeup operator insulin use (HCC); Pain due to onychomycosis of toenails of both feet; Right foot dropStart: 11-03-2024 End: 27-48-2873Cckbqw flowsheetNicholas A Brown DPM Work Phone: noMS CI PODIATRYStart: 11-03-2024 End: 14-88-1251Casjmr flowsheetNicholas A Brown DPM Work Phone: noMS CI PODIATRYStart: 11-03-2024 End: 56-88-5338lbyeoueqylHVDSIUIX A BROWNNot AvailableStart: 10-26-2024 End: 16-32-2635Uldcih outpatient visit 25 Jose Liz MD Work Phone: uh [facility] on above:Persistent atrial fibrillation (Multi) (Primary Dx); Single vessel coronary disease; High risk medication use; Stenosis of right carotid artery; Mixed hyperlipidemia; Essential hypertension; Anemia, unspecified type; Cerebrovascular accident (CVA), unspecified mechanism (Multi); Former smoker; BMI 24.0-24.9, adult; Prolonged QT intervalStart: 10-26-2024 End: 86-41-5789guamuuibyfOPTTAJQWellstar [facility] AmbulatoryStart: 08-11-2024 End: 29-19-0374bvbbnodlcpMRWYLOTC A BROWNNot AvailableStart: 05-26-2024 End: 51-52-1594Agfgcv Julia Hi DPM Work Phone: noMS CI PODIATRYStart: 05-26-2024 End: 51-72-8753Onskbzjosselyn Hi DPM Work Phone: noMS CI PODIATRYStart: 05-26-2024 End: 76-08-6598Cgygvb outpatient visit 15 minutesMarciano Hi DPM Work Phone: noms CI PODIATRYComment on above:Xerosis cutis (Primary Dx); Diabetes 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, unspecified whether 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 insulin use ([facility]); Pain due to onychomycosis of toenails of both feet; Right foot dropStart: 05-26-2024 End: 64-04-5323lpxmjpstxmNEXYNAOJ A BROWNNot AvailableStart: 04-20-2024 End: 45-03-6786Nysdbo outpatient visit 40 Jose Liz MD Work Phone: uh [facility] on above:TIA (transient ischemic attack) (Primary Dx); Single vessel coronary disease; High risk medication use; Stenosis of right carotid artery; Persistent atrial fibrillation (Multi); Mixed hyperlipidemia; Essential hypertension; Cerebrovascular accident (CVA), unspecified mechanism (Multi); Former smoker; BMI 26.0-26.9,adultStart: 04-20-2024 End: 40-19-5677rhqejtiugrFAFCBMAWellstar [facility] AmbulatoryStart: 03-17-2024 End: 30-04-7482Xccurq Julia Hi DPM Work Phone: noms CI PODIATRYStart: 03-17-2024 End: 33-43-5253Vnfbxc Julia Hi DPM Work Phone: noms CI PODIATRYStart: 03-17-2024 End: 98-73-9990Vsxgpv outpatient visit 10 Jose Manuel Hi DPM Work Phone: noms CI PODIATRYComment on above:Xerosis cutis (Primary Dx); Diabetes 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, unspecified whether ad terminal makeup operator insulin use ([facility]); Pain due to onychomycosis of toenails of both feet; Right foot dropStart: 03-17-2024 End: 97-08-8116vugmxfnbbwZFMTPZXH A BROWNNot AvailableStart: 01-28-2024 End: 57-73-2881Vhspiu outpatient visit 25 Jose Liz MD Work Phone: uh FirelandsComment on above:Persistent atrial fibrillation (Multi) (Primary Dx); Single vessel coronary disease; Mixed hyperlipidemia; Essential hypertension; Anemia, unspecified type; Cerebrovascular accident (CVA), unspecified mechanism (Multi); High risk medication use; Former smoker; BMI 27.0-27.9,adultStart: 01-28-2024 End: 99-38-4148qtvqazmqkkJFHNEMZWellstar [facility] Center AmbulatoryStart: 01-07-2024 End: 57-02-7845Eptiqhjosselyn Hi DPM Work Phone: noms CI PODIATRYStart: 01-07-2024 End: 70-22-1415Pjjxqs Julia Hi DPM Work Phone: noms CI PODIATRYStart: 01-07-2024 End: 64-81-3025Wfzhnq outpatient visit 15 minutesMarciano Hi DPM Work Phone: noms CI PODIATRYComment on above:Xerosis cutis (Primary Dx); Onychomycosis; Pain due to onychomycosis of toenails of both feet; Right foot dropStart: 01-07-2024 End: 98-88-7158fuzukhrmxsLBQTXIBF A BROWNNot AvailableStart: 07-30-2023 End: 78-04-2527Ewzjjj outpatient visit 25 minutesVeronica Liz MD Work Phone: uh [facility] HospitalComment on above:High risk medication use (Primary Dx); Single vessel coronary disease; Essential hypertension; Mixed hyperlipidemia; Persistent atrial fibrillation (Multi); BMI 28.0-28.9,adult; Cerebrovascular accident (CVA), unspecified mechanism (Multi); Anemia, unspecified type; Former smokerStart: 01-29-2023 End: 53-44-0076Vtgjwh outpatient visit 25 minutesVeronica Liz MD Work Phone: uh [facility] HospitalComment on above:Single vessel coronary disease (Primary Dx); Essential hypertension; Mixed hyperlipidemia; Persistent atrial fibrillation (CMS/HCC); Anemia, unspecified type; BMI 28.0-28.9,adultStart: 08-57-6278Qo RenewalChelsearles P House Work Phone: [phone]-[place] [address] Work Phone: Start: 16-78-2554hxmbuddoihAuoentk Traboulssi Facility:[id number]: 71-76-9828Dg RenewalCharles P House Work Phone: mp470-2691OP-[facility]jj[facility] 250 DO Work Phone: Start: 53-22-5661GNC, Provider: Veronica Liz, Status: Pen, Time: 9:40 AMCharles P House Work Phone: mp630-2129OY-Pgbnm [place] [facility] [address] DO Work Phone: Start: 40-02-8506Ckucxr outpatient visit 10 minutes Valente P House Work Phone: mp007-2868OE-Ozvnn [place] [facility] 250 DO Work Phone: Start: 51-31-4443lmpeyruuxpFdjkqza [facility] Facility:[id number]: 06-07-5660Mvuahi outpatient visit 40 minutesCharles P House Work Phone: [phone]-Dnuri [place] [facility] [address] DO Work Phone: Start: 72-48-2031enyxsgpwheEemvobw [facility] Facility:[id number]: 05-14-2022 End: 35-50-0841yjybsjaoxmBH VALENTE HOUSEFacility:X3Ubtcg: 04-20-2022 End: 79-01-0018cgledmtusvLD VALENTE HOUSEFacility:X6Hliah: 33-64-8287Fr Renewal Valente P House Work Phone: mp098-3784UN-VlqpmAustin Hospital And Clinicusky 250 DO Work Phone: Start: 12-20-2021 End: 32-34-0767lhtmhxnfkcEJ VALENTE HOUSEFacility:Z2Vrwhx: 12-05-2021 End: 27-39-1168xxmmqcxkttDZ VALENTE HOUSEFacility:Y8Ntmzm: 11-28-2021 End: 15-94-1680Jmzdlkiefs and management of inpatientMELISSA MARKERMerBaldwin Park Hospitaltart: 11-28-2021 End: 03-35-3536Hybepeqtau and management of inpatientMichaelul Eber LEW Work Phone: stvz 1B Neuro ICUComment on above:Cerebrovascular accident (CVA), unspecified mechanism (HCC) (Primary Dx); HyponatremiaStart: 11-28-2021 End: 14-87-5009viiozlfwjvLQ BENITA MARKER .Facility:H2Cthoq: 97-99-8968Gbfben outpatient visit 25 minutesCharles P House Work Phone: [phone]-Ssqrf [facility] DO Work Phone: Start: 10-31-6643fpwgrfcnhhWhjqgvp Traboulssi Facility:[id number]: 63-07-9137Yi RenewalCharles P House Work Phone: [phone]-Ibkqk [facility] DO Work Phone: Start: 79-45-6632mnhkbntwrnKgbafd IbrahimFacility:9090 Start: 09-22-2021 End: 25-39-7520ektpsjxjccKA ANN Rendon LUCYECKFacility:V5Aeyhp: 09-17-2021 End: 08-32-8483avddxltiffVwuwvt [employer] Other [employer] Other Start: 73-71-5919Yfvatf follow up visit related to original pxThomas OlexaFPG [facility] OrthopedicsStart: 08-29-2021 End: 42-10-8878dsymtnamcvQliuvh Olex[employer] Other [employer] Other Start: 58-20-8053GTHQ visit new patientThomas OlexaFPG [facility] OrthopedicsStart: 08-26-2021 End: 63-93-4923ohzwfsjtnpYM CHARLES HOUSEFacility:F9Bxkgg: 08-22-2021 End: 86-09-2390zchqmwflodPQ CHARLES SUMMERTOWNFacility:W8Cyjdq: 15-33-6622Jylcil outpatient visit 25 minutesCharles P House Work Phone: [phone]-Erxqj [facility] DO Work Phone: Start: 78-83-8619Txcguvt encounter procedureMOFELI BENTLEYacility:1532 Procedures DateProcedureProcedure DetailPerforming ClinicianStart: 38-65-2093Tdf routine ecg w/least 12 lds w/i&Humberto Liz MD Work Phone: Start: 32-94-3563Cez routine ecg w/least 12 lds w/i&r Veronica Liz MD Work Phone: Start: 15-43-5186Plz routine ecg w/least 12 lds w/i&r Veronica Liz MD Work Phone: Start: 48-20-9029Mph routine ecg w/least 12 lds w/i&r Veronica Liz MD Work Phone: Start: 84-06-8604Tlk routine ecg w/least 12 lds w/i&r Veronica Liz MD Work Phone: Start: 58-90-5423Xty routine ecg w/least 12 lds w/i&r Veronica Liz MD Work Phone: Start: 03-39-8439Vzbiuys blood reagent stripJamal Chirri DO Work Phone: Start: 39-68-1421Tjeoj metabolic panel calcium total Adina Hi CENTRIFUGAL SEPARATOR - MILK HANDLER Work Phone: Start: 60-62-8291Qgyyzhh blood reagent stripJamal Chirri DO Work Phone: Start: 12-03-2021 End: 70-45-5499Bzrat of osmolality urineMohammad I Mashaleh DO Work Phone: Start: 98-91-2604Ieuuiwl blood reagent stripJamal Chirri DO Work Phone: Start: 48-80-5342Ypymu metabolic panel calcium total Adina Hi CENTRIFUGAL SEPARATOR - MILK HANDLER Work Phone: Start: 91-54-2921Ykvwfem blood reagent stripJamal Chirri DO Work Phone: Start: 69-54-9497Goobmls blood reagent stripJamal Chirri DO Work Phone: Start: 97-65-0806Afh routine ecg w/least 12 lds trcg only w/o i&rJeffrey P Blood DO Work Phone: Start: 81-33-1447Liiqbgn blood reagent stripJamal Chirri DO Work Phone: Start: 12-02-2021 End: 19-47-0227Pgaxi of troponin Caitlin Holguin MD Work Phone: Start: 82-40-8385Dsxkd of magnesiumDanielle Holguin MD Work Phone: Start: 16-21-6269Dmw routine ecg w/least 12 lds i&r onlyJamal Chirri DO Work Phone: Start: 81-15-9300Lbpbk dip stick/tablet reagent auto microscopyDebbie Villalobos MD Work Phone: Start: 19-46-0006Tgdypbl blood reagent stripNeilmal Chirri DO Work Phone: Start: 54-70-5505Lnsbqdz blood reagent stripNeilmal Chirri DO Work Phone: Start: 68-74-3419Rlpebzb blood reagent stripJamal Chirri DO Work Phone: Start: 48-24-8916Cqvcztb blood reagent stripNeilmal Chirri DO Work Phone: Start: 01-71-9620Ibihjwm blood reagent stripJamal Chirri DO Work Phone: Start: 62-39-3833Nwixc metabolic panel calcium total Amanda Garcia CENTRIFUGAL SEPARATOR - MILK HANDLER Work Phone: Start: 57-54-6530Vcqrxdl blood reagent stripJamal Chirri DO Work Phone: Start: 64-42-6716Cbnu tthrc r-t 2d w/wom-mode compl spec&colr Yina Cabrera MD Work Phone: Start: 54-54-6863Sjncjmj blood reagent stripJamal Chirri DO Work Phone: Start: 11-30-2021 End: 31-18-8653Tohqc metabolic panel calcium totalAmanda Garcia CENTRIFUGAL SEPARATOR - MILK HANDLER Work Phone: Start: 11-53-2219Lybxhbf blood reagent stripJatutu Niecy DO Work Phone: Start: 40-59-5472Tdrffad blood reagent Rose Velázquez MD Work Phone: Start: 21-75-5241Ngv routine ecg w/least 12 lds i&r onlyMayayadelfina Atkins CENTRIFUGAL SEPARATOR - MILK HANDLER Work Phone: Start: 56-44-9406Zggygmc blood reagent Rose Velázquez MD Work Phone: Start: 69-98-7723Jinok of Talat Velázquez MD Work Phone: Start: 46-54-8974Jf head/brain w/o contrast material Isidro Mehta MD Work Phone: Start: 67-84-5755Mrxjqug blood reagent Rose Velázquez MD Work Phone: Start: 73-19-7304Dszyr metabolic panel calcium total Amanda Arroyo Garcia CENTRIFUGAL SEPARATOR - MILK HANDLER Work Phone: Start: 65-90-2973Nxsuuoh blood reagent Rose Velázquez MD Work Phone: Start: 53-85-3001Nfxazkr blood reagent Rose Velázquze MD Work Phone: Start: 78-44-0833Kyspfld blood reagent Rose Velázquez MD Work Phone: Start: 26-62-7864Azxejli blood reagent Rose Velázquez MD Work Phone: Start: 88-11-0187Cqdioht blood reagent Rose Velázquez MD Work Phone: Start: 71-27-6558Hxm brain brain stem w/o w/contrast materialIsidro Mehta MD Work Phone: Start: 05-32-2028Izxkn of Talat Velázquez MD Work Phone: Start: 07-24-8452Sqgjc panelPaul Eber LEW Work Phone: Start: 11-28-2021 End: 93-52-3499YAIWTHY, BLOOD 1Paul Eber LEW Work Phone: Start: 27-29-6646Mx angiography neck w/contrast/noncontrastChristian Dk Mehta MD Work Phone: Start: 10-52-6987Dp head/brain w/o contrast material Buddhism Dk Mehta MD Work Phone: Start: 18-42-2702Sfmxq metabolic panel calcium total Neal Velázquez MD Work Phone: Cataract surgeryCharles P House Work Phone: ColonoscopyCharles P House Work Phone: Elbow joint operationsCharles P House Work Phone: Operation on gallbladderCharles P House Work Phone: Procedure on backCharles P House Work Phone: TonsillectomyCharles P House Work Phone: VasectomyCharles P House Work Phone: Plan of Treatment DateCare ActivityDetailAuthorStart: 06-08-2025 End: 87-40-8330Ezszyvg encounter ahdhublux62/19/2026 3:00 PM EDT Office Visit [facility] [address] [facility] [address] [place] [address] Veronica Liz MD [address] [facility] 2, [address] [place] [address] [facility]: 01-26-2025 End: 52-47-1723Vyfeeco encounter alkhenjvx78/06/2025 1:50 PM EST Procedure Visit [facility] [address] [place] [address] Marciano Hi DPM [address] [facility] [address] [place] [address] [facility]RYStart: 86-37-5044Qjurscgu identified in Urine by CultureUrine CultureSelect Medical Specialty Hospital - Columbustart: 12-15-2024 Urine cultureSelect Medical Specialty Hospital - Columbustart: 11-23-2024 End: 66-69-0326DXJ 12 LeadECG 12 Lead ECG Routine High risk medication use Persistent atrial fibrillation (Multi) Expected: 11/23/2024 (Approximate), Expires: 11/09/2025[facility] Service Area Work Phone: Comment on above:Expected: 11/23/2024 (Approximate), Expires: 11/09/2025Start: 11-23-2024 End: 81-65-4609Batzpogrxhyv / ancillary services hcxjuqnfnp92/03/2025 2:00 PM EDT Ancillary Procedure [address] [address] [facility]: 09-40-5747MYQVX-19 Vaccine ( season)COVID-19 Vaccine ( season)[facility] Start: 56-57-0342Suvirtbpn vaccinationInfluenza Vaccine (#1)[facility]onStart: 11-09-2024 End: 16-67-3907SII 12 [facility] Service Area Work Phone: Comment on above:Expected: 11/09/2024 (Approximate), Expires: 10/26/2025Start: 11-09-2024 End: 79-68-5312Skcxvpvgsmqw / ancillary services wewmbtyvmr30/20/2025 2:00 PM EDT Ancillary Procedure [address] [address] [facility] HospitalStart: 11-03-2024 End: 97-62-4879Jgxtoht encounter xeaqmnxxq81/14/2025 2:40 PM EDT Procedure Visit [facility] [address] [address] Marciano Hi DPM [address] [facility] [address] [place] [address] Diabetes 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, unspecified whether ad terminal makeup operator insulin use (HCC) (Primary Dx); Pain due to onychomycosis of toenails of both feet; Right foot drop; Xerosis cutisNOMS CI PODIATRYComment on above:Diabetes 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, unspecified whether ad terminal makeup operator insulin use (HCC) (Primary Dx); Pain due to onychomycosis of toenails of both feet; Right foot drop; Xerosis cutisStart: 10-26-2024 End: 74-72-8700Lprghww encounter banphmpqs78/06/2025 2:30 PM EDT Office Visit [address] [address] Veronica Liz MD [address] [place] [address] 2, [facility] [address] [place] [address] [facility]: 08-11-2024 End: 41-79-9827Zlozezk encounter /22/2025 2:10 PM EDT Procedure Visit [facility] [address] [facility] 120 [place] [address] Marciano Hi DPM [address] [address] [facility]Start: 08-03-2024 End: 52-68-1880Ydcjqko encounter sdizctsrr92/14/2025 3:30 PM EDT Office Visit [address] [address] Veronica Liz MD [address] [facility] 2, [address] [place] [address] [facility]: 05-26-2024 End: 64-92-9747Dupvxmw encounter procedureNOMS CI PODIATRYComment on above: Diabetes 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, unspecified whether 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 insulin use (CMS/HCC) (Primary Dx); Pain due to onychomycosis of toenails of both feet; Right foot drop; Xerosis cutisStart: 03-17-2024 End: 30-45-0013Kkvqzqx encounter kohomfjhm35/26/2024 1:50 PM EST Procedure Visit [facility] [address] [facility] 120 [place] [address] Marciano Hi DPM [address] [facility] [address] [place] [address] [facility]OD[facility]RYStart: 03-17-2024 End: 37-10-6680Ikcvfgs encounter syvepvdfl33/26/2024 11:50 AM EST Procedure Visit [facility] [address] [address] Marciano Hi DPM [address] [address] Diabetes 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,unspecified whether 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 insulin use (CMS/HCC) (Primary Dx); Pain due to onychomycosis of toenails of both feet; Right foot drop; Xerosis cutisNOMS CI PODIATRYComment on above:Diabetes 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, unspecified whether 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 insulin use (CMS/HCC) (Primary Dx); Pain due to onychomycosis of toenails of both feet; Right foot drop; Xerosis cutisStart: 01-28-2024 End: 29-56-2276Tsxktfc encounter kqqqdibfq66/07/2024 3:10 PM EST Office Visit [facility] 7[address] [facility] 250 [place] [address] Veronica Liz MD [address] [facility] 2, [address] [place] [address] [facility]: 01-07-2024 End: 41-48-5680Urkeueb encounter ivtmxdgoo87/17/2024 2:00 PM EDT Procedure Visit [facility] [address] [facility] 120 [place] [address] Marciano Hi, DPM [address] [facility] 5 [place] [address] Onychomycosis (Primary Dx); Pain due to onychomycosis of toenails of both feet; Right foot drop; Xerosis cutisNOMS CI PODIATRYComment on above:Onychomycosis (Primary Dx); Pain due to onychomycosis of toenails of both feet; Right foot drop; Xerosis cutisStart: 81-95-4257RPLUX-19 Vaccine ( season)COVID-19 Vaccine ()[facility]: 11-22-2023 Influenza vaccinationUnMadison Health: 07-30-2023 End: 39-21-4663Gfahtru encounter edrssqydp49/09/2024 3:00 PM EDT Office Visit [facility] [address] [facility] [address] [place] [address] Veronica Liz MD [address] [facility] 2, [facility] [address] [place] [address] [facility]: 09-16-7345XMX, Provider: Veronica Liz, Status: Pen, Time: 3:10 PMFUV, Provider: Veronica Liz, Status: Pen, Time: 3:10 PM-[facility] [address] [place] Work Phone: Start: 77-14-2886Forrejel mellitus screeningDiabetes ScreeningUnMadison Health: 57-39-1932Qgoursrzkc A1c jairyqdhjndB3V test (Diabetic or Prediabetic)[facility]ENTERStart: 82-51-9705Lmszs panelLipidsBON ST. JOHN OF GOD HOSPITALStart: 76-33-6070RXBZZ-19 Vaccine ( season)COVID-19 Vaccine ()[facility]: 63-84-5850Ilzlkxlye vaccinationInfluenza Vaccine (#1)[facility]: 65-91-7488ABF, Provider: Veronica Liz, Status: Pen, Time: 1:30 PMFUV, Provider: Veronica Liz, Status: Pen, Time: 1:30 PMMP-[facility] 250 DO Work Phone: Start: 61-65-3823BVA, Provider: Veronica Liz, Status: Pen, Time: 1:20 PMFUV, Provider: Veronica Liz, Status: Pen, Time: 1:20 PM[facility] [place] 250 DO Work Phone: Start: 96-25-1669Xxwgqziegy A1c measurementDiabetes: Hemoglobin Z3ZZTZKSaint [place] University HospitalStart: 01-27-2022 End: 87-24-9425Otkfeam encounter cbzwzgmga03/07/2022 Office Visit Neurology AntoniJasmin MD [address] [place] [address] [facility] Unittart: 51-23-7168MLDKTHQT, Provider: SURJIT TIRADO CELERY STRIPPER 1,[id number], Status: Pen, Time: 1:30 PM NURSEVST, Provider: SURJIT TIRADO CELERY STRIPPER 1,[id number], Status: Pen, Time: 1:30 PMChildren[facility] [place] 250 DO Work Phone: Start: 12-19-2021 End: 39-58-5983EL HEAD WO CONTRASTCT HEAD WO CONTRAST Imaging Routine Cerebrovascular accident (CVA), unspecified mechanism (HCC) Expected: 12/19/2021, Expires: 11/30/2022ON [facility] Phone: comment on above:Expected: 12/19/2021, Expires: 11/30/2022Start: 12-10-2021 End: 09-02-2342Onlkl metabolic 2000 panel - Serum or PlasmaBasic Metabolic Panel Lab Routine Hyponatremia Expected: 12/10/2021, Expires: 01/02/2022ON [place] Phone: comment on above:Expected: 12/10/2021, Expires: 01/02/2022tart: 60-08-0562CGG, Provider: Veronica Liz, Status: Pen, Time: 1:30 PMFUV, Provider: Veronica Liz, Status: Pen, Time: 1:[address]-[facility] 250 DO Work Phone: Start: 50-80-4711Sysmmdztl vaccinationFlu vaccine (#1) [facility]: 21-77-0728AVO High Risk: (Elderly (60+) or Population) (1 - 1-dose 75+ series)RSV High Risk: (Elderly (60+) or Population) (1 - 1-dose 75+ series)[facility] Start: 91-00-2344WABDL-19 Vaccine (4 - Booster for Pfizer series)COVID-19 Vaccine (4 - Booster for Pfizer series)[facility]: 03-12-2021 COVID-19 Vaccine (4 - Pfizer series)COVID-19 Vaccine (4 - Pfizer series) [facility]: 35-05-6042Eopljwpxf aortic aneurysm screeningAAA screenBON [facility]: 85-23-4688AFX patients and/or patients aged 60+ years (1 - 1-dose 60+ series)RSV patients and/or patients aged 60+ years (1 - 1-dose 60+ series)[facility]: 43-75-4569Xooumksy vaccine (1 of 2)Shingles vaccine (1 of 2)[facility]: 63-39-2581Sdwjnm Vaccines (1 of 2)Zoster Vaccines (1 of 2)[facility]: 32-32-9909Iyyhefhbg for malignant neoplasm of colonBON [facility]: 1968 DTaP/Tdap/Td Vaccines (1 - Tdap)DTaP/Tdap/Td Vaccines (1 - Tdap)[facility]: 60-95-6783NCkU/Tdap/Td vaccine (1 - Tdap) DTaP/Tdap/Td vaccine (1 - Tdap)[facility]: 1964 Pneumococcal vaccinationPneumococcal Vaccine (1 of 2 - PCV)[facility]: 05-74-3013Xuwfjnzdwrvu Vaccine: 65+ Years (1 of 2 - PCV) Pneumococcal Vaccine: 65+ Years (1 of 2 - PCV)[facility]Start: 1965 Urine screening for proteinDiabetes: Urine Protein ScreeningSaint Louis University Hospital Start: 11-27-7288Kakhtjpy retinal examDiabetic retinal examSouthside Regional Medical Center: 67-45-7094Qhubzaoap C screeningBON [facility]: 10-58-4901Gsuzqyxsih ScreenDepression ScreenSouthside Regional Medical Center: 59-23-6496Jtwhlqbx foot examinationDiabetic foot examCLINCH VALLEY MEDICAL [facility]ENTER Start: 05-85-4796Dutkedah screeningDiabetes: Retinopathy ScreeningExcelsior Springs Medical Centerart: 19-67-2471Hserqwpimndn 65+ years Vaccine (1 - PCV)Pneumococcal 65+ years Vaccine (1 - PCV)[facility]: 90-40-6832Ebneshxjlosn Vaccine: 65+ Years (1 - PCV)Pneumococcal Vaccine: 65+ Years (1 - PCV)[facility]: 91-36-5534Mzbiqxeorepw Vaccine: 65+ Years (1 of 2 - PCV)Pneumococcal Vaccine: 65+ Years (1 of 2 - PCV)[facility]: 68-56-9293Orvuhp Wellness Visit (AWV)Annual Wellness Visit (AWV) [facility]: 61-59-3440Tvvbz panelLipid PanelUnMadison Health: 08-03-1947Medicare Annual Wellness (AWV)Medicare Annual Wellness (AWV)[facility] [place] [facility] HospitalStart: 08-03-1947Medicare Annual Wellness VisitMedicare Annual Wellness Visit (AWV)[facility] End: 07-82-9862Ysfjm metabolic 2000 panel - Serum or PlasmaBasic Metabolic Panel Lab Routine Daily for 3 Days starting 12/03/2021 until 12/05/2021, 2 completed [email or web address] Phone: comment on above:Daily for 3 Days starting 12/03/2021 until 12/05/2021, 2 completed End: 93-69-2281FQN W Auto Differential panel - BloodCBC with Auto Differential Lab Routine Daily for 3 Days starting 12/03/2021 until 12/05/2021, 2 completed [email or web address] Phone: Comment on above:Daily for 3 Days starting 12/03/2021 until 12/05/2021, 2 completedContinuous pulse oximetryPulse oximetry, continuous Respiratory Care Routine Every 4hr until discontinued starting 11/28/2021ON [employer] Phone: comment on above:Every 4hr until discontinued starting 11/28/2021Glucose [Mass/volume] in Serum or PlasmaBON [facility] Phone: comment on above:4X Daily (AC & HS) until discontinued starting 11/28/2021s Needed until discontinued starting 11/28/2021xygen therapy [Minimum Data Set]Initiate Oxygen Therapy Protocol Respiratory Care Routine As Needed until discontinued starting 11/28/2021ON [facility] Phone: comment on above:As Needed until discontinued starting 11/28/2021 End: 61-33-8689HKL clinical swallow evaluationSLP clinical swallow evaluation JUNIOR ART DIRECTOR Routine One Time for 1 Occurrences starting 11/28/2021 until 11/28/2021ON [employer] Phone: Comment on above:One Time for 1 Occurrences starting 11/28/2021 until 11/28/2021 End: 27-12-0122Lzouut and language therapy regimeSpeech Language Pathology (JUNIOR ART DIRECTOR) eval and treat JUNIOR ART DIRECTOR Routine One Time for 1 Occurrences starting 11/28/2021 until 11/28/2021[facility] Work Phone: comment on above:One Time for 1 Occurrences starting 11/28/2021 until 11/28/2021 Immunizations Immunization DateImmunizationNotesCare UtlmahyfJltepglv90-04-5081Dgalzq-NxyTFzog COVID-19 Vacc 30 MCG/0.3ML Intramuscular SuspensionCharles P House Work Phone: [facility] on above: Series:70-79-4618Tfxtvi-BioNTech COVID-19 Vacc 30 MCG/0.3ML Intramuscular SuspensionCharles P House Work Phone: [facility]03-01-2021Pfizer- BioNTech COVID-19 Vacc 30 MCG/0.3ML Intramuscular SuspensionCharles P House Work Phone: [facility] on above: Series:79-69-3097rriayupmi virus vaccine, unspecified formulationCharles P House Work Phone: [phone]-YeozuMayo Clinic Hospital 250 DO Work Phone: Payers DatePayer CategoryPayerPolicy [id number]-[id number] [id number] 2012Medicare [id number] [id number] 1947 [id number] 2.840.1.674026.3.57[id number] 2.16840.1.411777.3.57[id number] 2.16840.1.802059.3.57[id number] 2.16840.1.524008.3.579.[id number] 2.16840.1.867546.3.579.2.10029-14-6275Lgsvszi4823559 2.16840.1.587961.3.579.[id number] 2.16840.1.883094.3.579.2.2[id number] 2.16840.1.506798.3.579.2.31923-92-8716Usearmh9251812 2.16840.1.930017.3.579.2.84143-30-0018Mezctce0494261 2.840.1.903523.3.579.[id number] 2.840.1.598739.3.579.2.1[id number] 2.840.1.563184.3.579.2.[id number] 2.840.1.346512.3.579.2.[id number] 2.840.1.271047.3.57[id number] 2.16840.1.852353.3.579.2.07135-91-2908Szzyqhr28388822 2.16840.1.577061.3.579.2.883279-32-4504Ljnuvcn8362376 2.16840.1.783829.3.579.2.712667-30-0578Gzherms6595630 2.16840.1.958189.3.579.2.319031-14-2654Butkhcr1267554 2.16.840.1.521151.3.579.2.038016-05-9906Patqqnk8737069 2.16.840.1.451613.3.579.2.617507-29-9428Hwiwxac491037565 2.16.840.1.342055.3.579.2.099097-73-7934Tuhifzi411186473 2.16.840.1.434234.3.57[id number] 2.16.840.1.531265.3.579.2.256952-93-8503Beitxqs005731063 2.16.840.1.026870.3.579.2.266133-55-8840Xseiyqh056548138 2.16.840.1.550498.3.579.2.021303-84-2169Gajsnbi46004880 2.16.840.1.452803.3.579.2.85209-89-0085Mcfwkai42252660 2.16.840.1.777279.3.579.2.727UnknownUnknownHCAP/HFA/FAP [id number] 5cu67871-8948-1771-620h-[id number] 2.840.1.237043.3.579.2.531 Social History DateTypeDetailFacilityStart: 01-29-2023 End: 34-84-7587St illicit drug useNo illicit drug use-[facility] [place] 250 DO Work Phone: Comment on above:1 BEER OCCASIONALLY;2 CUPS OF COFFEE DAILY;QUIT MAR 2019;Start: 01-29-2023 End: 67-03-4812Lzk Assigned At [facility] [place] Other Start: 09-23-2021 End: 07-91-1095Dfapkzr smoking status NHISEx-smokerDIGN[facility] [employer] Phone: End: 67-00-4523Zpxbagx of tobacco useCurrent smokerDIGNITY [facility]ALTH [facility] [employer] Phone: End: 42-87-3525Dpyecuv of tobacco useCigarette SmokerDIGNITY HEALTH [facility] [employer] Phone: start: 12-02-2021 End: 47-38-9375Pqqmiem intakeCurrent drinker of alcohol (finding)[facility] [employer] Phone: start: 00-10-2397Mprdmpm SDOH Alcohol Atzdgxtlg0ZZJ [employer] Phone: start: 94-62-7534Jxxzkta SDOH Alcohol Std Muanug0TIF [employer] Phone: start: 07-29-4870Aietpor SDOH Alcohol Commentocc beer [facility] [employer] Phone: start: 62-82-9131Emv Assigned At BirthNot on hattieDIGNITY HEALTH [facility] [employer] Phone: start: 11-18-2021 End: 43-34-3400Lxvwpyxh to SARS-CoV-2 (event)Not sureDIGNITY HEALTH [facility] [employer] Work Phone: start: 71-52-9689Dza Assigned At [facility] Charles Hospitaltart: 01-29-2023 End: 75-85-8937Kaeolfo use and exposureSmokeless tobacco non-userSelect Medical Specialty Hospital [facility] Work Phone: Start: 52-45-0055Idaqelm CommentoccasionallyUnChildren's Hospital of [facility] Work Phone: Start: 37-58-2956Fotocju smoking status NHISTobacco smoking consumption unknownKANE COUNTY HUMAN RESOURCE SSD HealthcareStart: 63-97-1343Iejjlkz Commentcoffee dailySaint [place] University HospitalStart: 39-70-8611SjpRdnjXpipdvqsyjParkview HealthSex Male (finding)[facility] HospitalNEGATED: Highlighted rowStart: NINFHistory of tobacco usePassive [facility] Medical Equipment Procedure CodeEquipment CodeEquipment Original TextEquipment IdentifierDates Capsule endoscopy, for patency of lumen evaluationVideo capsule endoscopy system ()[id number] FDAStart: 40-99-6500Exvvtfx artery closure plug/patch, synthetic polymer()[id number] FDAStart: 03-31-2019 Clinical Notes 08-26-2021 to 01-12-2025 Note Date & YleeTimpUcotspft66-17-9570 NoteED Patient Education Note Nephrology Acute Kidney [...] these instructions at home: Medicines ??? Take icon-wkn-cvnsywn and prescription medicines only as told by [...] your kidneys. Where to find support ??? [employer]: aakp.org ??? [employer]: akfinc.org Where to find more information ??? National Kidney Foundation: k (more content not included)...[facility]09-03-2025 History of Present illness Narrative* Kristin [...] m (6' 1 ) documented in this encounterSelect [facility] Work Phone: 1(257) 447-469808-20-2025 History of Present illness Narrative* Clyde Yoo [...] done in office today documented in this encounterSelect Medical [facility]ty [facility] Work Phone: 1(398) 201-490208-06-2025 History of Present illness Narrative* Veronica Liz [...] exam, discussion and plan. documented in this [facility] Work Phone: 1(388) 863-787208-06-2025 Instructions* Patient Instructions* Evelina Yoder RN - [...] three times a day documented in this [facility] Work Phone: 1(245) 791-145503-06-2025 History of Present illness Narrative* Marciano Hi [...] has periodically been using prescribed or recommended wumf-idw-medmkbw cream with negative improvement. Patient also states he had cold exposure for many years to his feet Patient has history of right foot drop secondary to spinal surgery in the past and refused AFO rx in the past. Allergies: No Known Allergies Past Medical History: Past Medical History: Diagnosis Date Diabetes ([facility]) Medications: Current Outpatient Medications: aspirin [...] and negative PT pedal pulses NEURO: 5.07 [place] Nacho monofilament test diminished to digits and forefoot bilaterally 125Hz tuning fork diminished to 1st MPJ bilaterally ORTHO: Positive pain on palpation to toenails of the left 1,2,3,4,5 toes and right 1,2,3,4,5 toes +4/5dorsiflexion right ankle ASSESSMENT 1. Diabetes 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, unspecified whether 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 insulin use ([facility] [facility]) 2. Pain due to onychomycosis [...] . Patient states that he will use ffuy-zcu-dwsteup creams as necessary Marciano Hi DPM documented in this encounterSaint Louis University HospitalNanghfntkg98-93-6905 History of Present illness Narrative* Veronica Liz [...] and diagnosed with TIA. He was at [facility]. He underwent evaluation and was seen [...] on the review of the record from [place]. He was asked To see me to [...] exam, discussion and plan. [facility] Work Phone: [phone]) 587-264701-29-2025 Instructions* Patient Instructions* Shaina Floyd LPN - [...] 6 months Declines anticoagulation. documented in this [facility]Select [facility] Work Phone: 1([phone]) 544-724512-26-2024 History of Present illness Narrative* Marciano Hi [...] has periodically been using prescribed or recommended axio-gea-jegvuwh cream with negative improvement. Patient also states he had cold exposure for many years to his feet Patient has history of right foot drop secondary to spinal surgery in the past and refused AFO rx in the past. Allergies: No Known Allergies Past Medical History: Past Medical History: Diagnosis Date Diabetes ([facility]) Medications: Current Outpatient Medications: aspirin [...] and negative PT pedal pulses NEURO: 5.07 [place] Nacho monofilament test diminished to digits and forefoot bilaterally 125Hz tuning fork diminished to 1st MPJ bilaterally ORTHO: Positive pain on palpation to nails 1 through 10 +4/5dorsiflexion right ankle ASSESSMENT 1. Diabetes 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, unspecified whether ad terminal makeup operator insulin use ([facility]) 2. Pain due to onychomycosis [...] . Patient states that he will use thpv-uat-ibrsonk creams as necessary Marciano Hi DPM documented in this encounterSaint Louis University [id number] History of Present illness Narrative* Veronica Liz [...] [facility] repeat E[facility] today he is in [...] exam, discussion and plan. documented in this [facility] Work Phone: [phone] 186-207011-07-2024 Instructions* Patient Instructions* Carline López LPN - [...] through Care Everywhere. * Heart Healthy Diet (German) documented in this [facility] Work Phone: [phone] 800-726410-17-2024 History of Present illness Narrative* Marciano Hi [...] has periodically been using prescribed or recommended vhzq-pxu-eefqqov cream with minimal improvement. Patient also states he had cold exposure for many years to his feet Patient has history of right foot drop secondary to spinal surgery in the past and refused AFO rx in the past. Allergies: No Known Allergies Past Medical History: Past Medical History: Diagnosis Date Diabetes ([facility]) Medications: Current Outpatient Medications: aspirin [...] and negative PT pedal pulses NEURO: 5.07 [place] Nacho monofilament test diminished to digits and [...] . Patient states that he will use dahr-esn-kkxccmi creams as necessary Marciano Hi DPM documented in this encounterSaint Louis University HospitalDetgezhdqg26-52-3990 History of Present illness Narrative* Veronica Liz [...] exam, discussion and plan. documented in this [facility] Work Phone: [phone] Instructions* Patient Instructions* Shaina Floyd LPN - [...] 6 months with ekg documented in this [facility] Work Phone: [phone] History of Present illness Narrative* Veronica Liz [...] done in office today documented in this [facility] Work Phone: [phone]) 985-698411-09-2023 Instructions* Patient Instructions* Clyde Nunez MA - [...] time of your visit. documented in this [facility] Work Phone: [phone] History of Present illness Narrative* Yesterday OV [...] try to retrieve retrieve his record from [facility] 250 DO Work Phone: 1([phone]) 528-170509-13-2022 History of Present illness Narrative* Valerie Del Toro, CENTRIFUGAL SEPARATOR - MILK HANDLER - 12/03/2021 10:12 AM EDT Images from the original note were not included. [employer] Progress Note Date: 12/03/2021 Patient name: Shahrzad [...] (HCC) COPD (chronic obstructive pulmonary disease) (HCC) [id number] Score for Atrial Fibrillation Stroke Risk Risk Factors Component Value C CHF No 0 H HTN Yes 1 A2 Age >= 75 Yes, (76 y.o.) 2 D DM Yes 1 S2 Prior Stroke/TIA No 0 V Vascular Disease No 0 A Age 65-74 No, (76 y.o.) 0 Sc Sex male 0 [id number] Score 4 Score last updated 12/03/21 10:13 [...] call with further questions or concerns [employer] [phone] * Jasmin Corrales MD - 12/03/2021 8:49 AM EDT [facility] Neurology IN-PATIENT SERVICE [facility] Progress Note Date: 12/03/2021 Patient name: Shahrzad Edgar Date of admission: 11/28/2021 3:15 AM Account: [id number] Date of : 1945 PCP: No primary care provider on file. Room: [address] [place] [address] Code Status: Full Code Chief Complaint: Right [...] He is eager to be discharged to [facility]. Patient counseled regarding treatment follow-up plan, [...] temporal headache with dizziness. Initially evaluated at [facility] and later transferred to [facility] after CT head was done showing [...] ms QTc Calculation (Bazett) 516 ms R George 23 degrees T George 48 degrees POC Glucose Fingerstick Collection Time: [...] 1.07 (L) 1.10 - 3.70 k/uL Absolute [place] # 1.20 0.10 - 1.20 k/uL Absolute [...] Assessment : Primary Problem Cerebrovascular accident (CVA) ([facility]) Active Hospital Problems Diagnosis Date Noted Atrial fibrillation with RVR ([facility]) [I48.91] 12/02/2021 Priority: Medium Type 2 diabetes mellitus without complication, without long-term current use of insulin ([facility]) [E11.9] 12/02/2021 Priority: Medium Primary hypertension [I10] 12/02/2021 Priority: Medium COPD (chronic obstructive pulmonary disease) ([facility]) [J44.9] 12/02/2021 Priority: Medium PAF (paroxysmal atrial fibrillation) ([facility]) [I48.0] 11/29/2021 Priority: Medium Anemia [D64.9] 11/29/2021 Priority: Medium Cerebrovascular accident (CVA) ([facility]) [I63.9] 11/28/2021 Priority: Medium Otitis [...] medical management PT/OT/ST Plan for discharge to [facility] today Follow-up further recommendations after discussing [...] history and exam findings with the resident/ MILK HANDLER. I reviewed medications, clinical labs, x-rays and other diagnostic tests with the resident/ MILK HANDLER. I have seen and examined the patient and the lamas elements of the encounter have been performed by me. I agree with the assessment, plan and orders as documented by the resident or MILK HANDLER. Impression and Plan: Mr. Shahrzad Edgar is [...] from the original note were not included. [facility] Office: [phone] Darrius Mattson DO, Valente Kaur DO, Noel Lin DO, Gilles Mantilla DO, Ernst Pond MD, Sara Dalal MD, Lizbet Grossman MD, Ernestine Colvin MD, Gaurav Macias MD, Jyoti Dale MD, Moody CanasDO, Jennifer Kaur MD, Dany Arroyo DO, Abbi Kirkland MD, yKe Adam MD, Keny Mattson DO, Phuong Cannon MD, Dustin Degroot MD, Susan Castro MD, Aaliyah Rudolph MD, Mary Concepcion MD, Dorcas Ness MD, Osmin Marlow DO, Zena Irby MD, Lewis See MD, Blanka Martin, MILK HANDLER, Nicky Gonzalez, MILK HANDLER, Pattie Vasquez, MILK HANDLER, Prem Potter, MILK HANDLER, Adrienne Domingo, MIYA, Marissa Hamilton, MILK HANDLER, Lida Soto, MILK HANDLER, Rosmery Bryan, MILK HANDLER, Cici Antoine, MILK HANDLER, Leslie Chen, MILK HANDLER, Lalito Baker PA-C, Kathy Wilder, PHARMACY OPERATIONS MANAGER, Janet Bar, MIYA, Triny Francois, MILK HANDLER, Mary Ortiz, MILK HANDLER, Sue Rivera, MILK HANDLER [facility] IN-PATIENT SERVICE [facility] Progress Note 12/03/2021 8:19 AM Name: Shahrzad Edgar Acct: [id number] Room: 0122/0122-01 Day: 5 Admit Date: 11/28/2021 [...] results found for: POCPH, PHART, PH, POCPCO2, XES4HHG, PCO2, POCPO2, PO2ART, PO2, POCHCO3, EUH1TIM, HCO3, NBEA, PBEA, BEART, BE, THGBART, THB, LLQ2MUN, PIMG4HSS, T9DOVVWV, O2SAT, FIO2 Lab Results Component Value Date/Time [...] range) infarct in the region of right E1lvznbzid division with petechial hemorrhage in areas along [...] range) infarct in the region of right Y2rslkgzoh division with petechial hemorrhage in areas along [...] Modified POA * (Principal) Cerebrovascular accident (CVA) ([facility]) 11/30/2021 Yes Otitis media with effusion, left 11/28/2021 Yes PAF (paroxysmal atrial fibrillation) ([facility]) 12/02/2021 Yes Anemia 11/29/2021 Yes Atrial fibrillation with RVR ([facility]) 12/02/2021 No Primary hypertension 12/02/2021 Yes Type 2 diabetes mellitus without complication, without long-term current use of insulin ([facility]) 12/02/2021 Yes COPD (chronic obstructive pulmonary disease) (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 Cognitive and Speech Treatment Note Date: 12/02/2021 Patient s Name: Shahrzad Edgar Diagnosis: Patient Active Problem List Diagnosis Code Cerebrovascular accident (CVA) ([facility]) I63.9 Otitis media with effusion, left H65.92 History of atrial fibrillation Z86.79 Anemia D64.9 Pain: 0/10 Cognitive Treatment Treatment time: 3979-2042 Subjective: [x] Alert [x] Cooperative [] Confused [] Agitated [] Lethargic Objective/Assessment: Recall: Delayed Recall - Associated Lists: 11/29 independently Organization: Category Members - [place]: 02/01 increased to 03/03 with mod verbal [...] recommended at discharge. Completed by: Sheri Serna Chief Engineer Drilling And Recovery Clinician Cosigned By: Ayla White M.S.CCC/JUNIOR ART DIRECTOR * Evelin Griffin RN - 12/02/2021 8:59 AM EDT [employer] Documentation Note Admission Dx: Brain mass [G93.89] Past Medical History: has a past medical history of Arthritis, COPD (chronic obstructive pulmonary disease) (HCC), Diabetes mellitus (HCC), History of blood transfusion, and Hypertension. Previous Testing: ECHO 11/30/2021: EF 54%, negative bubble study, no valvular abnormalities. Previous office/hospital visit: None Evelin Griffin RN [employer] * Zena Irby MD - 12/01/2021 11:32 [...] did nothelp. Patient was initially evaluated at [facility] and noted to have left upper [...] prior to transfer over. Upon arrival at [place], patient's blood pressure was normotensive. Evaluated by [...] started at that time. Continue on Statin PT/OT/JUNIOR ART DIRECTOR Urinary retention - will obtain urology consulation [...] 11/30/2021 2:49 PM EDT Physical Therapy Facility/Department: [address] NEURO ICU Daily Treatment Note Name: [...] decrease pushing with R UE. OutComes Score AM-[facility] Score -[facility] Inpatient Mobility Raw Score : 8 (11/30/211436) -[facility] Inpatient T-Scale Score : 28.52 (11/30/211436) Mobility [...] with least restrictive AD Additional Goals?: No Local Operator Goals Additional Goals?: No Education Patient [...] not help. He was seen by his pre school teacher and was told that his BP was elevated; he was started on lisinopril 5 mg daily. He was initially evaluated at [facility]. Patient was noted to have left [...] IVPB x1 prior to be transferred to [facility] for higher level of care. Patient was [...] to ensure the accuracy of this automated trolley operator, some errors in trolley operator may have occurred. Associated attestation - Allan [...] 11/29/2021 5:44 PM EDT Occupational Therapy Facility/Department: [address] NEURO ICU Occupational Therapy Initial Assessment [...] use in appartment) Transfer Assistance: Independent Active Accountant Property: Yes Mode of Transportation: Car Occupation: Retired Leisure & Hobbies: [employer] Objective Safety Devices Type of Devices: All [...] 11/29/2021 3:46 PM EDT Physical Therapy Facility/Department: [address] NEURO ICU Physical Therapy Initial Assessment [...] exact time). He was initially evaluated at [facility]. Patient was reported to have been at pre school teacher earlier today, and BP was elevated, but patient unable to state how elevated. No improvement with Excedrin. Patient denies any other blood thinners aside from aspirin. At [facility] facility patient noted to have clear speech, [...] did have purulent material. CT head from [facility] showed area of hypoattenuation in right [...] use in appartment) Transfer Assistance: Independent Active Accountant Property: Yes Mode of Transportation: Car Occupation: Retired Leisure & Hobbies: [employer] Vision/Hearing Vision: Needs glasses for reading Hearing: [...] sitting EOB for ~13 mins. AM-PAC Score [facility] Inpatient Mobility Raw Score : 9 (11/29/211544) [facility] Inpatient T-Scale Score : 30.55 (11/29/211544) Mobility Inpatient CMS 0-100% Score: 81.38 (11/29/211544) Mobility Inpatient [facility] G-Code Modifier : CM (11/29/211544) Goals Short [...] with least restrictive AD Additional Goals?: No Longterm Goals Additional Goals?: No Education Patient Education [...] Patient's name: Shahrzad Edgar Patient's account/billing number: [id number] Patient's Date of : 1945 Age: 76 y.o. Date of Admission: 11/28/2021 3:15 AM Length of stay during current admission: 1 Primary Care Physician: No primary care provider on file. Code Status: Full Code Mode of physician to physician communication: [] Via telephone [x] In person Date and time of sign-out: 11/29/2021 2:50 PM Accepting Neurology WEAPONS AND TACTICS INSTRUCTOR: Adina Do NP Accepting team's attending: Dr. [...] EDT Speech Language Pathology Speech Language Pathology [facility] Dysphagia Treatment Note Date: 11/29/2021 Patient [...] Provided with Soft Solids, Puree, Thin and Manteno thick trials. Pt. With no overt s/s [...] discharge. Treatment completed by: ROBBY Hall, M.S. CCC-JUNIOR ART DIRECTOR * Sheri Serna - 11/29/2021 11:47 AM EDT Speech Language Pathology Speech Language Pathology [facility] Cognitive and Speech Treatment Note Date: [...] 8/9 with repetitions Organization: Category Members - [place]: 27/36 increased to 36/36 with min-mod verbal [...] recommended at discharge. Completed by: Sheri Serna Chief Engineer Drilling And Recovery Clinician Cosigned By: Ayla White M.S.CCC/JUNIOR ART DIRECTOR * Joseph Mcdonnell, PT - 11/29/2021 9:28 [...] Name: Shahrzad Edgar Patient : 1945 [facility] Code Status: Full Code Allergies: Allergies [...] Guevara Kaur DO Neuro Critical Care Pager [phone] 11/29/2021 6:48 AM Associated attestation - Neal [...] prophylaxis. Maintain SBP < 160. Incentive spirometry. JUNIOR ART DIRECTOR eval. PT/OT. Insulin sliding scale. Stepdown. Discharge planning. I independently reviewed all labs, imaging and EKG tracings * ROBBY Hall - 11/28/2021 3:02 PM EDT Speech Language Pathology Facility/Department: [address] NEURO ICU CLINICAL BEDSIDE SWALLOW EVALUATION [...] exact time). He was initially evaluated at [facility]. Patient was reported to have been at pre school teacher earlier today, and BP was elevated, but patient unable to state how elevated. No improvement with Excedrin. Patient denies any other blood thinners aside from aspirin[facility] to [facility] clear [...] did have purulent material. CT head from [facility] showed area of hypoattenuation in right [...] prior to transfer to Neuro ICU at [place]. Pain: Pain Assessment Pain Assessment: 0-10 Pain [...] with partial PO only Treatment Plan Requires JUNIOR ART DIRECTOR Intervention: Yes D/C Recommendations: Ongoing speech therapy [...] Patient Education Response: Needs reinforcement Therapy Time [id number] ROBBY Hall 11/28/2021 3:02 PM * Sheri Serna - 11/28/2021 1:30 PM EDT Speech Language Pathology Facility/Department: [address] NEURO ICU Initial Speech/Language/Cognitive Assessment NAME: [...] exact time). He was initially evaluated at [facility]. Patient was reported to have been at pre school teacher earlier today, and BP was elevated, but [...] prior to transfer to Neuro ICU at [place]. Pain: Pain Assessment Pain Assessment: 0-10 Pain [...] noted deficits. Education provided. Recommendations: Recommendations Requires JUNIOR ART DIRECTOR Intervention: Yes Patient Education: yes Patient Education [...] With: Friend(s) Type of Home: Apartment Active Accountant Property: Yes Vision Vision: Within Functional Limits Hearing [...] 1058 Minutes 12 Completed by: Sheri Serna Chief Engineer Drilling And Recovery Clinician Cosigned By: Ayla White M.S.CCC/JUNIOR ART DIRECTOR * Raymundo Dallas RPH - 11/28/2021 6:36 AM EDT [facility] Pharmacokinetic Monitoring Service - [...] 11/28/2021 6:35 AM documented in this encounterBON Kuailexue Phone: 1([phone]) [phone] Hospital Discharge instructions* Discharge Instr - NORMA* Reese Schofield RN - 12/02/2021 2:45 PM EDT Continuity of Care Form Patient Name: Shahrzad Edgra : 1945 Admit date: 11/28/2021 Discharge date: 12/03/2021 Code Status Order: Full Code Advance Directives: Admitting Physician: Allan Pemberton DO PCP: No primary care provider on file. 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 Immunization History: Immunization History Administered Date(s) Administered COVID-19, PFIZER PURPLE top, DILUTE for use, (age 12 y+), 30mcg/0.3mL 05/21/2020, 06/12/2020, 01/15/2021 Active Problems: Patient Active Problem List Diagnosis Code Cerebrovascular accident (CVA) ([facility]) I63.9 Otitis media with effusion, [...] Assisted Dressing Assisted Toileting Independent Feeding Independent Air Conditioning Manager Independent Med Delivery whole Wound Care [...] Dysphagia soft Routes of Feeding: Oral Liquids: Manteno Thick Liquids Daily Fluid Restriction: 1500 Last [...] Readmission: 13 Discharging to Facility/ Agency Name: [facility] Address: Phone: Fax: Dialysis Facility (if applicable) Name: Address: Dialysis Schedule: Phone: Fax: Charrer/Senior Administrator Support signature: PHYSICIAN SECTION Prognosis: {Prognosis:1644424301} Condition at Discharge: { Patient Condition:905932553} Rehab Potential (if transferring to Rehab): {Prognosis:3825714286} Recommended Labs or Other Treatments After Discharge: Physician Certification: I certify the above information and transfer of Shahrzad Edgar is necessary for the continuing treatment of the diagnosis listed and that he requires {Admit to Appropriate Level of Care:46024} for {GREATER/LESS:343012021} 30 days. Update Admission H&P: {CHP DME Changes in HandP:943635752} PHYSICIAN SIGNATURE: * Attachments The following attachments cannot be sent through Care Everywhere. * Statins (German) * Ischemic Stroke: General Info (German) * Stroke: Symptoms: General Info (German) * Diabetes: Heart Attack and Stroke Risk: General Info (German) documented in this encounterB[facility] Work Phone: 1(665) 992-708606-28-2022 Evaluation note* Encounter Date Diagnosis Assessment Notes Treatment Notes Treatment Clinical Notes Aug, Left hand pain (ICD-10 - M79.642 ) Aug, losed displaced fracture of proximal phalanx of left little finger with routine healing, subsequent encounter (ICD-10 - S62.617D)Radiographs reviewed with patient today. Discussed with patient to work on range of motion exercises [employer] Other 06-09-2022 Evaluation note* Encounter Date Diagnosis [...] and elevate to decrease pain and swelling. [employer] Other 06-06-2022 NotePROCEDURE: XR HAND LT MIN 3V COMPARISON: None. HISTORY: Pain FINDINGS: BONES:Subtle contour deformity identified at the base of the fifth proximal phalanx. No dislocation. Mild degenerative changes. SOFT TISSUES:Negative. No visible soft tissue swelling. EFFUSION:None visible. OTHER: Negative. IMPRESSION: Suspected nondisplaced fracture base of the fifth proximal phalanx Electronically authenticated by: REINA GO Date: 2021-08-26 10:45[facility] Diagnosis Cerebrovascular accident (CVA), unspecified [...] (HCC) Intracerebral hemorrhage documented in this encounter [facility] Work Phone: evaluation noteNo assessment information available [facility] Work Phone: Evaluation note* Diagnosis Single vessel coronary disease- Primary Essential hypertension Unspecified essential hypertension Mixed hyperlipidemia Persistent atrial fibrillation (CMS/HCC) Atrial fibrillation Anemia, unspecified type BMI 28.0-28.9,adult documented in this encounter [facility] Work Phone: Evaluation note* Diagnosis High risk medication use- Primary Single vessel coronary disease Essential hypertension Unspecified essential hypertension Mixed hyperlipidemia Persistent atrial fibrillation (Multi) Atrial fibrillation BMI 28.0-28.9,adult Cerebrovascular accident (CVA), unspecified mechanism (Multi) Anemia, unspecified type Former smoker Personal history of tobacco use, presenting hazards to health documented in this encounter [facility] Work Phone: Evaluation note* Diagnosis Xerosis cutis- Primary Other specified disease of sebaceous glands Onychomycosis Dermatophytosis of nail Pain due to onychomycosis of toenails of both feet Right foot drop Other acquired deformity of ankle and foot documented in this encounter [facility]* Diagnosis Persistent atrial fibrillation (Multi)- Primary Atrial fibrillation Single vessel coronary disease Mixed hyperlipidemia Essential hypertension Unspecified essential hypertension Anemia, unspecified type Cerebrovascular accident (CVA), unspecified mechanism (Multi) High risk medication use Former smoker Personal history of tobacco use, presenting hazards to health BMI 27.0-27.9,adult documented in this encounter [facility] Work Phone: Evaluation note* Diagnosis Xerosis cutis- Primary Other specified disease of sebaceous glands Diabetes 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, unspecified whether ad terminal makeup operator insulin use ([facility]/HCC) Pain due to onychomycosis of toenails of both feet Right foot drop Other acquired deformity of ankle and foot documented in this encounter [facility]* Diagnosis TIA (transient ischemic attack)- [...] health BMI 26.0-26.9,adult documented in this encounter [facility] [facility] Work Phone: Evaluation note* Diagnosis Persistent atrial [...] electrocardiogram (ECG) (EKG) documented in this encounter [facility] Work Phone: Evaluation note* Diagnosis Xerosis cutis- Primary Other specified disease of sebaceous glands Diabetes 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, unspecified whether 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 insulin use ([facility]) Pain due to onychomycosis of toenails of both feet Right foot drop Other acquired deformity of ankle and foot documented in this encounter [facility] Healthcare[facility]* Diagnosis Persistent atrial fibrillation (Multi)- Primary Atrial fibrillation High risk medication use documented in this encounter [facility] Work Phone: Evaluation note* Diagnosis High risk medication use Persistent atrial fibrillation (Multi) Atrial fibrillation documented in this encounter [facility] Work Phone: History general Narrative - Reported* Type Description Date Medical History NM Medical HistoryDMMedical HistoryHTNSurgical HistorycholecystectomySurgical Historyback surgerySurgical Historyelbow surgerySurgical Historycataracts, bilaterallySurgical HistoryT & AHospitalization Historysee aboveHospitalization HistoryMI1-2019 [facility] Other History of Present illness Narrative* Is [...] advised to repeat lab work as ordered [facility] [facility] DO Work Phone: History of Present [...] 5. 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 Unfortunately he did not tolerate Eliquis and this was discontinued. Patient did not bring his medication with him. He reports he was in the hospital in [place] in [place] after a stroke. Hedoes not know if [...] 4. I to retrieve his record from [place] * 5. I advised the patient TO bring his medication with him and tried to write things down concerninghis memory does not appears to be good and he has no good social support system [facility] [facility] DO Work Phone: History of Present [...] has not been using prescribed or recommended pfqu-kxy-gugafop cream with negative improvement. Patient has history [...] and negative PT pedal pulses NEURO: 5.07 [place] [employer] monofilament test diminished to digits and forefoot bilaterally 125Hz tuning fork diminished to 1st MPJ bilaterally ORTHO: Positive pain on palpation to toenails of the left 1,2,3,4,5 toes and right 1,2,3,4,5 toes +4/5dorsiflexion right ankle ASSESSMENT 1. Diabetes 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, unspecified whether ad terminal makeup operator insulin use (HCC) 2. Pain due to [...] . Marciano Hi DPM [facility] (narrative)No reason for referral information [facility]Mer[facility]tr Work Phone: Summary Purpose Family History [...] Procedures ECG 12 Lead Veronica Liz MD [address] [place] [address] 2, [place] [phone] Referral IDStatusReasonStart DateExpiration DateVisits RequestedVisits [id number] [id number] / ProceduresReferred By ContactReferred To ContactCardiology Diagnoses Single vessel coronary disease Essential hypertension Procedures Follow Up In Cardiology Veronica Liz MD [address] [facility] 2, [place] [phone] Veronica Liz MD [address] [facility] 2, [place] [phone] Referral IDStatusReasonStart DateExpiration DateVisits RequestedVisits [id number]/9/202311/8/054755NxrvsmzdsYrlzeiyhc / Procedures Referred By ContactReferred To ContactRadiology Diagnoses Cerebrovascular accident (CVA), unspecified mechanism (HCC) Procedures CT HEAD WO CONTRAST Alexander Grey, CENTRIFUGAL SEPARATOR - MILK HANDLER [address] [facility] [address] [address] [place] [address] Referral IDStatusReasonStart DateExpiration DateVisits RequestedVisits [id number]/29/20229/29/202311 Additional Source Comments (unrecognized sect ion and [...] section and content) DATE CREATED AUTHOR 06/11/2018 [facility] DATE CREATED AUTHOR AUTHOR'S ORGANIZ ATION 12/17/2021 [facility] DATE CREATED AUTHOR AUTHOR'S ORGANIZ ATION 05/18/2022 [facility] DATE CREATED AUTHOR AUTHOR'S ORGANIZ ATION 06/06/2022 [employer] DATE CREATED AUTHOR AUTHOR'S ORGANIZ ATION 08/07/2022 [facility] DATE CREATED AUTHOR AUTHOR'S ORGANIZ ATION 11/05/2024 [facility] DATE CREATED AUTHOR AUTHOR'S ORGANIZ ATION 11/25/2024 [facility] DATE CREATED AUTHOR AUTHOR'S ORGANIZ ATION 12/23/2024 [facility] DATE CREATED AUTHOR AUTHOR'S ORGANIZ ATION 01/14/2025 [facility] REASON FOR VISIT (unrecogniz ed section and content) ReasonCommentsFollow-up6 monthSpecialtyDiagnoses / ProceduresReferred By Contact Referred To Contact Diagnoses Persistent atrial fibrillation (CMS/HCC) Procedures ECG 12 Lead Veronica Liz MD [address] [facility] 2, [address] [address] Referral IDStatusReasonStart DateExpiration DateVisits RequestedVisits [id number] [id number]-gu7 monthsSpecialtyDiagnoses / ProceduresReferred By ContactReferred To Contact Cardiology Diagnoses Single vessel coronary disease Essential hypertension Procedures Follow Up In Cardiology Veronica Liz MD [address] [facility] 2, [address] [address] Veronica Liz MD [address] [facility] 2, [place] [address] [place] [address] Referral IDStatusReasonStart DateExpiration DateVisits RequestedVisits [id number]/9/202311/676708RqtztzYywvdlimRycjmtb CareNon DM NailsSpecialtyDiagnoses / ProceduresReferred By ContactReferred To Contact Cardiology Diagnoses Persistent atrial fibrillation (Multi) Procedures Follow Up In Cardiology Veronica Liz MD [address] [facility] 2, [place] [address] [place], [place] [phone] Phone: tel: fax: Veronica Liz MD [address] [facility] 2, [place] [address] [place] [address] Phone: tel: fax: Referral IDStatusReasonStart DateExpiration DateVisits RequestedVisits [id number]/9/20245/241135SlptdaMavilsytFsdqoem CareNon dm nail careReasonCommentsFoveterans affairs sierra [facility] 04/06 TIA expressive aphasiaSpecialtyDiagnoses / ProceduresReferred By ContactReferred To Contact Diagnoses Persistent atrial fibrillation (Multi) Procedures ECG 12 Lead Veronica Liz MD [address] [facility] 2, [address] [address] Phone: tel: fax: Referral IDStatusReasonStart DateExpiration DateVisits RequestedVisits [id number]/29/20251/922992GugilrLijpaqyhTfxuva-in3 months Persistent atrial fibrillation (MultiSpecialtyDiagnoses / ProceduresReferred By ContactReferred To ContactCardiology Diagnoses Single vessel coronary disease Procedures Follow Up In Cardiology Veronica Liz MD [address] [facility] 2, [place] [phone] Phone: tel: fax: Veronica Liz MD [address] [place] [address] 2, [place] [address] Phone: tel: fax: Referral IDStatusReasonStart DateExpiration DateVisits RequestedVisits [id number]/7/202411/7/083620LgaxeuIscknvckZvcjaon CareReason CommentsEKG visitSpecialtyDiagnoses / ProceduresReferred By ContactReferred To Contact Diagnoses High risk medication use Persistent atrial fibrillation (Multi) Procedures ECG 12 Lead Veronica Liz MD [address] [place] [address] 2, [place] [address] Phone: tel: fax: Referral IDStatReasonStart DateExpiration DateVisits RequestedVisits [id number]/6/20258/323517HdpfnoZbfpfbglYxwdndtl ECG2 week EKG follow up for Persistent atrial fibrillationSpecialtyDiagnoses / Procedures Referred By ContactReferred To Contact Diagnoses High risk medication use Persistent atrial fibrillation (Multi) Procedures ECG 12 Lead Veronica Liz MD [address] [place] [address] 2, [place] [phone] Phone: tel: fax: Referral IDStatReasonStart DateExpiration DateVisits RequestedVisits [id number]/20/20258/ Ordered Prescriptions (unrec ognized section and content) [...] Reason: Order parameters not met - Comment: bn=[id number]) * 1203 (Not Given - Provider: Huang [...] at 0900 * 0943 (Given - Provider: Hunag Gurrola RN) * 0848 (Given - Provider: [...] EVERY 8 HOURS PRN, Starting on 12/02/21 [id number], Until Discontinued, Bladder Spasms, Note: Additive effect [...] DateEnd Date Valente Tobin DO [address] [facility] [place] [phone] PCP - General03/23/99Team MemberRelationshipSpecialtyStart DateEnd Date Unallocated, Godwin Ojeda MD [address] [place] [address] PCP - [facility]06/04/23Team MemberRelationshipSpecialtyStart DateEnd Date Unallocated, Godwin Ojeda MD [address] [place] [address] PCP - [facility]06/04/23Team MemberRelationshipSpecialtyStart DateEnd Date Veronica Liz MD [address] [facility] 2, [address] [place] [address] [facility] - [facility] Attributed Provider03/23/23Team MemberRelationshipSpecialtyStart DateEnd Date Veronica Liz MD [address] [place] [address] 2, [address] [place] [address] PCP - [facility] Attributed Provider03/23/23 Zachariah Ochoa MD [address] [facility] [place] [address] [facility] - [facility]04/20/24Team MemberRelationshipSpecialtyStart DateEnd Date Zachariah Ochoa MD [address] [facility] [place] [address] PCP - [facility]04/20/24Te MemberRelationshipSpecialtyStart DateEnd Date Zachariah Ochoa MD [address] [facility] [place] [address] PCP - [facility]04/20/24Te MemberRelationshipSpecialtyStart DateEnd Date Zachariah Ochoa MD [address] [facility] [place] [address] PCP - [facility]04/20/24 Team Status: Inactive Member Role Status [...] BE BASED ON THE PRIMARY CLINICAL RECORDS. [employer] [facility]. provides no warranty or guarantee of the accuracy or completeness of information in this document.
[2025-01-15 13:26] LABS: Hematocrit 30.6 % (42.0-54.0); Hemoglobin 10.2 g/dL (14.0-18.0); Immature Granulocytes Abs Auto 0.02 10^3/uL (0.00-0.03); Immature Granulocytes Pct Auto 0.2 % (0.0-0.5); Lymphocytes Absolute Auto 1.4 10^3/uL (1.2-3.8); Mean Corpuscular HGB Conc 33.3 g/dL (29.9-35.2); Mean Corpuscular Hemoglobin 33.4 pg (25.9-34.0); Mean Corpuscular Volume 100.3 fL (80.0-94.0); Platelet Count 267 10^3/uL (150-450); Red Blood Count 3.05 10^6/uL (4.70-6.10); White Blood Count 8.7 10^3/uL (4.0-11.0)
[2025-01-15 13:47] LABS: Anion Gap 13.1; Blood Urea Nitrogen 19.0 mg/dL (7.0-18.0); Calcium 8.6 mg/dL (8.5-10.1); Carbon Dioxide 28.4 mmol/L (21.0-32.0); Chloride 100 mmol/L (98-107); Estimated GFR (African America >60 (>=60 mL/min/1.73m^2); Estimated GFR (Non-African Ame 52 (>=60 mL/min/1.73m^2); Glucose 112 mg/dL (74-106); Potassium 4.5 mmol/L (3.5-5.1); Sodium 137 mmol/L (136-145)
[2025-01-15] MEDS: METHOCARBAMOL 500 MG TABLET PO ×2 (13:54→21:19)
[2025-01-15] MEDS: ACETAMINOPHEN 500 MG TABLET 1000 MG PO ×2 (13:54→21:18)
[2025-01-15] MEDS: HEPARIN SODIUM (PORCINE) 5,000 UNIT/ML VIAL 5000 UNIT SUBQ ×2 (13:54→21:18)
[2025-01-15] MEDS: SOTALOL HCL 80 MG TABLET 40 MG PO (21:19)
[2025-01-16] VITALS (7 sets, daily range): BP systolic 120–177; BP diastolic 61–79; PULSE 61–69; TEMP 36.5–36.8; O2SAT 90–93
[2025-01-16] MEDS: METHOCARBAMOL 500 MG TABLET PO ×4 (05:53→21:45)
[2025-01-16] MEDS: ACETAMINOPHEN 500 MG TABLET 1000 MG PO (05:53)
[2025-01-16] MEDS: HEPARIN SODIUM (PORCINE) 5,000 UNIT/ML VIAL 5000 UNIT SUBQ (05:54)
[2025-01-16 06:14] LABS: Hematocrit 28.0 % (42.0-54.0); Hemoglobin 9.4 g/dL (14.0-18.0); Immature Granulocytes Abs Auto 0.03 10^3/uL (0.00-0.03); Immature Granulocytes Pct Auto 0.4 % (0.0-0.5); Lymphocytes Absolute Auto 1.3 10^3/uL (1.2-3.8); Mean Corpuscular HGB Conc 33.6 g/dL (29.9-35.2); Mean Corpuscular Hemoglobin 33.0 pg (25.9-34.0); Mean Corpuscular Volume 98.2 fL (80.0-94.0); Platelet Count 248 10^3/uL (150-450); Red Blood Count 2.85 10^6/uL (4.70-6.10); White Blood Count 8.4 10^3/uL (4.0-11.0)
[2025-01-16 06:43] LABS: Anion Gap 13.6; Blood Urea Nitrogen 19.0 mg/dL (7.0-18.0); Calcium 8.7 mg/dL (8.5-10.1); Carbon Dioxide 25.0 mmol/L (21.0-32.0); Chloride 101 mmol/L (98-107); Estimated GFR (African America >60 (>=60 mL/min/1.73m^2); Estimated GFR (Non-African Ame 55 (>=60 mL/min/1.73m^2); Glucose 112 mg/dL (74-106); Potassium 4.6 mmol/L (3.5-5.1); Sodium 135 mmol/L (136-145)
--- OUTSIDE RECORDS SUMMARY | 2025-01-16 07:58 | XMS_ITS | Clinical Summary ---
Author Organization [facility] Address [address] [place] [address] Care Team Providers Care Gill Tender Name Role Phone Unallocated, Noms Provider Primary Care Provi miya Allergies No known active allergies Medications MedicationSigDispense QuantityRefillsLast FilledStart DateEnd DateStatus aspirin 81 MG EC tablet Take 1 tablet by mouth DailyActive atorvastatin (Lipitor) 80 MG tablet Take 80 mg by mouth DailyActive lisinopril 2.5 MG tablet Take 2.5 mg by mouth DailyActive ibuprofen 400 MG tablet Take 1 tablet twice a day by oral route.Active sotalol AF (Betapace AF) 120 MG tablet TAKE 1/2 TABLET TWICE A DAY BY MOUTH03/11/2023ctive Active Problems No known active problems Encounters DateTypeDepartmentCare NnetZoaarwiqgoy05/14/2025 2:40 PM EDTProcedure Visit [facility] [address] [place] [address] Marciano Chapman DPM Xerosis cutis (Primary Dx); Diabetes 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, 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 (HCC); Pain due to onychomycosis of toenails of both feet; Right foot drop11/03/2024amboo flowsheet [facility] [address] [place] [address] Marciano Chapman DPM 11/03/2024Travelfrom Last 3 Months Family History RelationNameStatusCommentsFatherDeceasedMotherDeceased Social History Tobacco UseTypesPacks/DayYears UsedDateSmoking Tobacco: UnknownPassive Smoke Exposure: Never Tobacco Cessation:Counseling Given: Yes Alcohol UseStandard Drinks/WeekCommentsYes1 (1 standard drink = 0.6 oz pure alcohol)coffee dailySex and Gender InformationValueDate RecordedSex Assigned at BirthNot on fileLegal KlmXhhj9106/04/2022 6:56 PM EDTGender IdentityNot on file Sexual OrientationNot on file Last Filed Vital Signs Vital SignReadingTime TakenCommentsBlood Xoicrhfj495/7710 1:51 PM EDT Vdjsw3561 1:51 PM EDTTemperature--Respiratory Hzgu9869 1:40 PM EDTOxygen Saturation--Inhaled Oxygen Concentration--Ijahux63.2 kg (212 lb) 11/03/2024 1:40 PM VBBGtpdfh321.4 cm (6' 1 )11/03/2024 1:40 PM EDTBody Mass Index27.9708 1:40 PM EDT Plan of Treatment DateTypeDepartmentCare Team (Latest Contact Info)Yrmbsbrmltk49/06/2025 1:50 PM ESTProcedure Visit [facility] [address] [facility] [facility] [address] [place] [address] Marciano Chapman DPM [address] [facility] [address] [place] [address] Health MaintenanceDue DateLast DoneCommentsMedicare Annual Wellness (AWV) 1945Diabetes: Retinopathy Mkmacekux59/03/1957Diabetes: Urine Protein Derqhtnnb60/03/1966Pneumococcal Vaccine: 65+ Years (1 of 2 - PCV)1965 Diabetes: Hemoglobin A1C/10/2021Influenza Vaccine (#1)2024 03/23/20171306BcbtrdlvwylOcpvrxxjvkrt35/27/2020, 04/18/2019, 02/21/2016Colorectal Cancer ScreeningDiscontinuedCT ColonographyDiscontinuedFIT-DNADiscontinuedFIT DiscontinuedFOBTDiscontinuedSigmoidoscopyDiscontinued Insurance Care Teams Team MemberRelationshipSpecialtyStart DateEnd Date Unallocated, Noms Lynette, [address] [place], [place] [phone] PCP - GeneralFamily Medicine06/04/23
--- OUTSIDE RECORDS SUMMARY | 2025-01-16 07:58 | XMS_ITS | Clinical Summary ---
Author Organization [facility] tem Address [id number] [place] [address] Care Team Providers Care Buyer Assistant Name Role Phone Unavailable Primary Care Provider Unavailabl e Social History Tobacco UseTypesPacks/DayYears UsedDateSmoking Tobacco: Never AssessedSex and Gender InformationValueDate RecordedSex Assigned at BirthNot on fileLegal Sex Male10/04/2023 2:13 PM EDTGender IdentityNot on fileSexual OrientationNot on file Plan of Treatment Health MaintenanceDue DateLast DoneCommentsDepression Ebgyeqkeo77/03/1959Tobacco Abkizzakt09/03/1959DTaP,Tdap and Td Vaccines (1 - Tdap)1965Zoster (Shingles) Vaccine (1 of 2)1996Fall Risk Yzgonfhqn29/03/2012COVID-19 Vaccine ( season)/, 06/12/2020, 05/21/2020 Influenza Dmqozmx63 Medical Devices Not on file Insurance
--- OUTSIDE RECORDS SUMMARY | 2025-01-16 07:59 | XMS_ITS | Patient Health Record ---
Author Organization The [facility] in [place] Address [address] [place] [address] Care Team Providers Care Senior Office Assistant Name Role Phone Desiree Cuellar Primary Care Provider [phone] Zane Avila [phone] Allergies Allergen (clinical drug ingredient) Drug/Non Drug Allergy documented on EMR Reaction Allergy Type Onset Date Status coconut allergenic extract Coconut (Diagnostic) Unknown Drug Allergy Active Results Component Value Reference Range Notes CBC AUTO DIFF Reviewed date:12/15/2024 12:56:51 PM Interpretation: Performing Lab: Notes/Report: [facility] , White Blood Count 10.0 4.0-11.0 10 3/uL Red Blood Count3.334.70-6.10 10 6/kSEqzrhvpfkm67.114.0-18.0 g/sCRoeqpdmxlm90.4 42.0-54.0 %Mean Corpuscular Ujzybd715.380.0-94.0 fLMean Corpuscular Hemoglobin 33.325.9-34.0 pgMean Corpuscular HGB Conc33.229.9-35.2 g/dLRed Cell Distribution Width15.011.0-15.0 %Platelet Khmvc578227-322 10 3/uLMean Platelet Oxfsxx60.09.5- 13.5 fLNeutrophils Percent Auto75.643.0-75.0 %Lymphocytes Percent Auto13.220.5- 60.0 %Monocytes Percent Auto6.71.7-12.0 %Eosinophils Percent Auto3.90.9-7.0 % Basophils Percent Auto0.30.2-2.0 %Immature Granulocytes Pct Auto0.30.0-0.5 % Neutrophils Absolute Auto7.51.4-6.5 10 3/uLLymphocytes Absolute Auto1.31.2-3.8 10 3/uLMonocytes Absolute Auto0.70.3-0.8 10 3/uLEosinophils Absolute Auto0.40.0- 0.7 10 3/uLBasophils Absolute Auto0.00.0-0.1 10 3/uLImmature Granulocytes Abs Auto0.030.00-0.03 10 3/uLPerforming Lab:see noteML - [facility] LBCBC AUTO DIFF (Not yet reviewed by provider) Interpretation: Performing Lab: Notes/Report: [facility] ,White Blood Count8.74.0-11.0 10 3/uLRed Blood Count3.054.70-6.10 10 6/uL Liabvbruya35.214.0-18.0 g/vUNgcdrsfngz40.642.0-54.0 %Mean Corpuscular Volume 100.380.0-94.0 fLMean Corpuscular Dnlkvgrhfx36.425.9-34.0 pgMean Corpuscular HGB Conc33.329.9-35.2 g/dLRed Cell Distribution Width15.711.0-15.0 %Platelet Count 274927-336 10 3/uLMean Platelet Volume9.49.5-13.5 fLNeutrophils Percent Auto73.7 43.0-75.0 %Lymphocytes Percent Auto15.920.5-60.0 %Monocytes Percent Auto6.31.7- 12.0 %Eosinophils Percent Auto3.30.9-7.0 %Basophils Percent Auto0.60.2-2.0 % Immature Granulocytes Pct Auto0.20.0-0.5 %Neutrophils Absolute Auto6.41.4-6.5 10 3/uLLymphocytes Absolute Auto1.41.2-3.8 10 3/uLMonocytes Absolute Auto0.60.3-0.8 10 3/uLEosinophils Absolute Auto0.30.0-0.7 10 3/uLBasophils Absolute Auto0.10.0- 0.1 10 3/uLImmature Granulocytes Abs Auto0.020.00-0.03 10 3/uLPerforming Lab:see note - [facility] LBPROF CHEM 8 (BAS METB) Reviewed date:01/15/2025 11:55:31 AM Interpretation: Performing Lab: Notes/Report: [facility] ,Ormydd454878-138 mmol/LPotassium4.23.5-5.1 mmol/LUgbqrfpw31594-702 mmol/LCarbon Sugsfoh23.421.0-32.0 mmol/LAnion Gap15.0Tdmlboy34445-375 mg/dLBlood Urea Snkpcrlt04.07.0-18.0 mg/dLCreatinine1.510.70-1.30 mg/dLEstimated GFR ( Suwjmqd72>=60 mL/min/1.73m 2Estimated GFR (Non- Ame45>=60 mL/min/1.73m 2 BUN Creatinine Ratio12.1Gkehsvp8.68.5-10.1 mg/dLPerforming Lab:see note - [facility] LBCBC no Diff (Hemogram) Reviewed date:01/15/2025 11:55:31 AM Interpretation: Performing Lab: Notes/Report: [facility] ,White Blood Count8.94.0-11.0 10 3/uLRed Blood Count3.064.70-6.10 10 6/uL Updfkbmevw56.114.0-18.0 g/nPKslgypqiic36.442.0-54.0 %Mean Corpuscular Kixrzi49.3 80.0-94.0 fLMean Corpuscular Jqugszwozl73.025.9-34.0 pgMean Corpuscular HGB Conc 33.229.9-35.2 g/dLRed Cell Distribution Width15.711.0-15.0 %Platelet Ncjqy296 150-450 10 3/uLMean Platelet Volume9.29.5-13.5 fLPerforming Lab:see note - [facility] LBTroponin I High Sensitivity Reviewed date:01/15/2025 11:55:31 AM Interpretation: Performing Lab: Notes/Report: [facility] ,Troponin I High Sensitivity6.74.0-76.1 pg/mL CUT-OFF POINTS HAVE BEEN ESTABLISHED BASED ON THE FOURTH UNIVERSAL DEFINITION OF MYOCARDIAL INFARCTION. THE UPPER REFERENCE LIMIT (URL) OF TROPONIN, DEFINED THE 99TH PERCENTILE OF cTnI DISTRIBUTION IN A REFERENCE POPULATION, HAS BEEN CONFIRMED THE DECISION THRESHOLD FOR [place] DIAGNOSIS. 99TH PERCENTILE = 76.2 PG/ML NOTE: HIGH-SENSITIVITY TROPONIN ASSAY IS NOT INTENDED TO BE USED IN ISOLATION BUT SHOULD BE INTERPRETED IN CONJUNCTION WITH OTHER DIAGNOSTIC AND CLINICAL INFORMATION. Performing Lab:see noteML - [facility] LBECG 12 lead Reviewed date:01/15/2025 11:55:31 AM Interpretation: Performing Lab: Notes/Report: Source Facility: [place] [address] [place] [address] Electrocardiograph Report Signed Patient: SHAHRZAD MCNAIR MR#: [id number] : 1945 Acct:[id number] Age/Sex: 79 / M ADM Date: 01/15/25 Loc: ER Attending Dr: Ordering Physician: Indira Vogt Date of Service: 01/15/25 Procedure(s): ECG 12 lead Accession Number(s): [id number] cc: [facility] Test Date: 2025-01-15 Pat Name: SHAHRZAD MCNAIR Department: Room: - Gender: Male Tobacco Prizer: : 1945 Requested By: [id number] Order Number: [id number] Reading MD: ANCA BUTLER M.D. Measurements Intervals Johnson Rate: 74 P: 58 ME: 196 QRS: 44 QRSD: 84 T: 52 QT: 446 QTc: 473 Interpretive Statements 1100 Sinus rhythm 1574 with frequent ventricular premature complexes 8102 Low QRS voltage in chest leads 8304 Long QTc interval 9150 abnormal ECG Compared to ECG 12/15/2024 08:40:16 Low QRS voltage now present Electronically Signed On 01-15-2025 10:07:37 EDT by ANCA BUTLER M.D. Dictated By: ANCA BUTLER Signed By: 01/15/25 1007 DD/ 0703 TD/TT: Quality Systems Engineer:CBC AUTO DIFF (Not yet reviewed by provider) Interpretation: Performing Lab: Notes/Report: [facility] ,White Blood Count8.44.0-11.0 10 3/uLRed Blood Count2.854.70-6.10 10 6/uL Hemoglobin9.414.0-18.0 g/pAYhzhmgalwo37.042.0-54.0 %Mean Corpuscular Qcrhty42.2 80.0-94.0 fLMean Corpuscular Xxltborckn65.025.9-34.0 pgMean Corpuscular HGB Conc 33.629.9-35.2 g/dLRed Cell Distribution Width15.611.0-15.0 %Platelet Xxdrr339 150-450 10 3/uLMean Platelet Volume9.49.5-13.5 fLNeutrophils Percent Auto71.7 43.0-75.0 %Lymphocytes Percent Auto16.020.5-60.0 %Monocytes Percent Auto6.91.7- 12.0 %Eosinophils Percent Auto4.60.9-7.0 %Basophils Percent Auto0.40.2-2.0 % Immature Granulocytes Pct Auto0.40.0-0.5 %Neutrophils Absolute Auto6.01.4-6.5 10 3/uLLymphocytes Absolute Auto1.31.2-3.8 10 3/uLMonocytes Absolute Auto0.60.3-0.8 10 3/uLEosinophils Absolute Auto0.40.0-0.7 10 3/uLBasophils Absolute Auto0.00.0- 0.1 10 3/uLImmature Granulocytes Abs Auto0.030.00-0.03 10 3/uLPerforming Lab:see noteML - [facility] LBPROF CHEM 8 (BAS METB) (Not yet reviewed by provider) Interpretation: Performing Lab: Notes/Report: [facility] ,Qwfbku131844-223 mmol/LPotassium4.63.5-5.1 mmol/PUdbtasrw30447-321 mmol/LCarbon Xsukeyn15.021.0-32.0 mmol/LAnion Gap13.1Gqzcoum70141-625 mg/dLBlood Urea Sryqkcpi03.07.0-18.0 mg/dLCreatinine1.270.70-1.30 mg/dLEstimated GFR ( Suki>60>=60 mL/min/1.73m 2Estimated GFR (Non- Ame55>=60 mL/min/1.73m 2 BUN Creatinine Ratio15.9Dbefsoi8.78.5-10.1 mg/dLPerforming Lab:see noteML - [facility] LBXR chest 1V Reviewed date:12/15/2024 12:56:51 PM Interpretation: Performing Lab: Notes/Report: Source Facility: [facility]-[address] [place] [address] [place] [address] XRay Report Signed Patient: SHAHRZAD MCNAIR MR#: [id number] : 1945 Acct:[id number] Age/Sex: 79 / M ADM Date: Loc: ER Attending Dr: Ordering Physician: Hui Loredo M.D. Date of Service: 12/15/24 Procedure(s): XR chest 1V Accession Number(s): [id number] cc: Zachariah Avila M.D.; Hui Loredo M.D. [place] [address] Patient Name: SHAHRZAD MCNAIR MRN: [id number] date: 1945 Sex: M Assigned Patient Location: ER Current Patient Location: ER Accession/Order Number: [id number] Exam Date: 12/15/2024 09:00 Report Date: 12/15/2024 [...] PROCESS. Impression dictated by: Wilson Trinidad Jr., D.O. 12/15/2024 9:14 AM Dictation Location: [place] [address] Electronically authenticated by: [id number] Y Date: 12/15/2024 09:14 Dictated By: Wilson Trinidad M.D. Signed By: 12/15/2417 DD/ 3 TD/TT: Quality Systems Engineer:CT head/brain wo con Reviewed date:12/15/2024 12:56:51 PM Interpretation: Performing Lab: Notes/Report: Source Facility: [place] [address] [place] [address] CT Scan Report Signed Patient: SHAHRZAD MCNAIR MR#: [id number] : 1945 Acct:[id number] Age/Sex: 79 / M ADM Date: 12/15/24 Loc: ER Attending Dr: Ordering Physician: Hui Loredo M.D. Date of Service: 12/15/24 Procedure(s): CT head/brain wo con Accession Number(s): [id number] cc: Zachariah Avila M.D. [place] [address] Patient Name: SHAHRZAD MCNAIR MRN: [id number] date: 1945 Sex: M Assigned Patient Location: ER Current Patient Location: ED.MAIN Accession/Order Number: [id number] Exam Date: 12/15/2024 09:00 Report Date: 12/15/2024 [...] NO ACUTE INTRACRANIAL ABNORMALITY. Impression dictated by: Wilson Trinidad Jr., D.OMook 12/15/2024 9:23 AM Dictation Location: [place] [address] Electronically authenticated by: [id number] Y Date: 12/15/2024 09:23 Dictated By: Wilson Trinidad M.D. Signed By: 12/15/24924 DD/ 2 TD/TT: Quality Systems Engineer:ECG 12 lead Reviewed date:12/16/2024 12:31:31 PM Interpretation: Performing Lab: Notes/Report: Source Facility: [place] [address] [place] [address] Electrocardiograph Report Signed Patient: SHAHRZAD MCNAIR MR#: [id number] : 1945 Acct:[id number] Age/Sex: 79 / M ADM Date: 12/15/24 Loc: ER Attending Dr: Ordering Physician: Hui Loredo M.D. Date of Service: 12/15/24 Procedure(s): ECG 12 lead Accession Number(s): [id number] cc: [facility] Test Date: 2024-12-15 Pat Name: SHAHRZAD MCNAIR Department: Room: - Gender: Male Tobacco Prizer: : 1945 Requested By: ZACHARIAH AVILA Order Number: [id number] Reading MD: ANCA BUTLER M.D. Measurements Intervals Johnson Rate: 67 P: 90 ME: 188 QRS: 55 QRSD: 86 T: 51 QT: 468 QTc: 483 Interpretive Statements 1100 Sinus rhythm 1474 with frequent supraventricular premature complexes 8304 Long QTc interval 9150 abnormal ECG Compared to ECG 08/22/2024 02:28:25 No significant changes Electronically Signed On 12-16-2024 7:29:11 EDT by ANCA BUTLER M.D. Dictated By: ANCA BUTLER Signed By: 12/16/24 0729 DD/ 9 TD/TT: Quality Systems Engineer:Urine Culture - [facility] Reviewed date:12/18/2024 09:16:04 PM Interpretation: Performing Lab: Notes/Report: [facility] ,[facility] For Report Urine Culture - FR No Growth 2 Days Urine Culture - FR Urine Culture - FR No Growth 2 Days Urine Culture - FRTesting performed at [facility] Urine Culture - [facility] No Growth 2 Days Urine Culture - [id number] [place] [address] Urine Culture - [facility] No Growth 2 Days Performing Lab:see noteML - [facility] LBTroponin I High Sensitivity Reviewed date:12/15/2024 12:56:51 PM Interpretation: Performing Lab: Notes/Report: [facility] ,Troponin I High Sensitivity4.94.0-76.1 pg/mL CUT-OFF POINTS HAVE BEEN ESTABLISHED BASED ON THE FOURTH UNIVERSAL DEFINITION OF MYOCARDIAL INFARCTION. THE UPPER REFERENCE LIMIT (URL) OF TROPONIN, DEFINED THE 99TH PERCENTILE OF cTnI DISTRIBUTION IN A REFERENCE POPULATION, HAS BEEN CONFIRMED THE DECISION THRESHOLD FOR [place] DIAGNOSIS. 99TH PERCENTILE = 76.2 PG/ML NOTE: HIGH-SENSITIVITY TROPONIN ASSAY IS NOT INTENDED TO BE USED IN ISOLATION BUT SHOULD BE INTERPRETED IN CONJUNCTION WITH OTHER DIAGNOSTIC AND CLINICAL INFORMATION. Performing Lab:see noteML - [facility] LBUA RANDOM W or MICROSCOPIC Reviewed date:12/15/2024 12:56:51 PM Interpretation: Performing Lab: Notes/Report: [facility] ,Color UrineLT. YELLOWYELLOWClarity UrineCLEARCLEARSpecific [place]terbury Urine1.020 1.005-1.025pH Urine6.05.0-9.0Protein UrineNEGATIVENEG/TRACE mg/dLGlucose Urine JX468BZZNHNCV mg/dLBilirubin UrineNEGATIVENEGATIVEKetones UrineNEGATIVENEGATIVE mg/dLBlood UrineNEGATIVENEGATIVENitrite UrineNEGATIVENEGATIVEUrobilinogen Urine 0.20.2-1.0 EU/dLLeukocyte Esterase UrineTRACENEGATIVEWBC Urine5-10NONE SEEN #/HPFRBC Urine0-20-2 #/HPFBacteria UrineTRACENONE SEEN #/HPFMucus UrineNONE SEEN NONE SEENSquamous Epithelial Cell UrineFEWNONE/RARE #/LPFCrystals Seen?None Seen None Seen #/HPFCast Seen?NONE SEENNONE SEEN #/LPFUrine Culture [facility] Performing Lab:see noteML - [facility] LBPROF CHEM 8 (BAS METB) Reviewed date:12/15/2024 12:56:51 PM Interpretation: Performing Lab: Notes/Report: [facility] ,Hqifzr543696-244 mmol/LPotassium4.33.5-5.1 mmol/YZsdjakby9023-337 mmol/LCarbon Tvbsckl67.321.0-32.0 mmol/LAnion Gap14.4Qvqmxai72660-907 mg/dLBlood Urea Qhcyptqx54.07.0-18.0 mg/dLCreatinine1.640.70-1.30 mg/dLEstimated GFR ( Obzrakm71>=60 mL/min/1.73m 2Estimated GFR (Non- Ame41>=60 mL/min/1.73m 2 BUN Creatinine Ratio14.8Dcpurmv9.78.5-10.1 mg/dLPerforming Lab:see noteML - [facility] LBXR elbow RT min 3V Reviewed date:08/22/2024 09:36:42 PM Interpretation: Performing Lab: Notes/Report: Source Facility: [place] [address] XRay Report Signed Patient: SHAHRZAD MCNAIR MR#: [id number] : 1945 Acct:[id number] Age/Sex: 78 / M ADM Date: 08/22/24 Loc: ER Attending Dr: Ordering Physician: Chevy Wood Date of Service: 08/22/24 Procedure(s): XR elbow RT min 3V Accession Number(s): [id number] cc: Chevy Wood; Zachariah Avila M.D. [place] [address] Patient Name: SHAHRZAD MCNAIR MRN: [id number] date: 1945 Sex: M Assigned Patient Location: ED.MAIN Current Patient Location: Accession/Order Number: [id number] Exam Date: 08/22/2024 08:07 Report Date: 08/22/2024 [...] Fuentes M.D. 08/22/2024 8:08 AM Dictation Location: [place] [address] Electronically authenticated by: [id number] Y Date: 08/22/2024 08:08 Dictated By: Robbie Fuentes M.D. Signed By: 08/22/24 0811 DD/ 0808 TD/TT: Quality Systems Engineer:XR hip RT 2V w/ pelvis Reviewed date:08/22/2024 09:36:42 PM Interpretation: Performing Lab: Notes/Report: Source Facility: [place] [address] XRay Report Signed Patient: SHAHRZAD MCNAIR MR#: [id number] : 1945 Acct:[id number] Age/Sex: 78 / M ADM Date: 08/22/24 Loc: ER Attending Dr: Ordering Physician: Chevy Wood Date of Service: 08/22/24 Procedure(s): XR hip RT 2V w/ pelvis Accession Number(s): [id number] cc: Zachariah Serna M.D. [place] [address] Patient Name: SHAHRZAD MCNAIR MRN: [id number] date: 1945 Sex: M Assigned Patient Location: ED.MAIN Current Patient Location: Accession/Order Number: [id number] Exam Date: 08/22/2024 08:06 Report Date: 08/22/2024 [...] Fuentes M.D. 08/22/2024 8:07 AM Dictation Location: [place] [address] Electronically authenticated by: [id number] Y Date: 08/22/2024 08:07 Dictated By: Robbie Fuentes M.D. Signed By: 08/22/24 0810 DD/ TD/TT: Quality Systems Engineer:ECG 12 lead Reviewed date:08/22/2024 09:36:42 PM Interpretation: Performing Lab: Notes/Report: Source Facility: [place] [address] Electrocardiograph Report Signed Patient: SHAHRZAD MCNAIR MR#: [id number] : 1945 Acct:[id number] Age/Sex: 78 / M ADM Date: 08/22/24 Loc: ER Attending Dr: Ordering Physician: Chevy Wood Date of Service: 08/22/24 Procedure(s): ECG 12 lead Accession Number(s): [id number] cc: [facility] Test Date: 2024-08-22 Pat Name: SHAHRZAD MCNAIR Department: Room: - Gender: Male Tobacco Prizer: : 1945 Requested By: [id number] Order Number: [id number] Reading MD: ANCA BUTLER M.D. Measurements Intervals Johnson Rate: 57 P: 50 ME: 192 QRS: 47 QRSD: 84 T: 51 QT: 526 QTc: 520 Interpretive Statements 1100 Sinus rhythm 8304 Long QTc interval 9150 abnormal ECG Compared to ECG 04/05/2024 07:36:09 No significant changes Electronically Signed On 08-22-2024 7:09:37 EDT by ANCA BUTLER M.D. Dictated By: ANCA BUTLER Signed By: 08/22/2410 DD/ 7 TD/TT: Quality Systems Engineer:PROF ANDREEA Escobar ([facility]) Reviewed date:08/22/2024 09:36:42 PM Interpretation: Performing Lab: Notes/Report: [facility] ,Xfaelk138936-675 mmol/LPotassium4.03.5-5.1 mmol/RJakpgkpb59795-664 mmol/LCarbon Pzuqjai92.921.0-32.0 mmol/LAnion Gap11.9Fkkalpb49615-937 mg/dLBlood Urea Stratrws32.07.0-18.0 mg/dLCreatinine1.480.70-1.30 mg/dLEstimated GFR ( Ibikwle00>=60 mL/min/1.73m 2Estimated GFR (Non- Ame46>=60 mL/min/1.73m 2 BUN Creatinine Ratio10.8Zatarcc3.98.5-10.1 mg/dLPerforming Lab:see noteML - [facility] LBCBC AUTO DIFF Reviewed date:08/22/2024 09:36:42 PM Interpretation: Performing Lab: Notes/Report: [facility] ,White Blood Count7.24.0-11.0 10 3/uLRed Blood Count3.414.70-6.10 10 6/uL Alhyebhpyo04.714.0-18.0 g/yEJkkbnzstja15.142.0-54.0 %Mean Corpuscular Volume 100.080.0-94.0 fLMean Corpuscular Lnssvoqhpl81.325.9-34.0 pgMean Corpuscular HGB Conc34.329.9-35.2 g/dLRed Cell Distribution Width15.711.0-15.0 %Platelet Count 411751-207 10 3/uLMean Platelet Volume9.99.5-13.5 fLNeutrophils Percent Auto61.9 43.0-75.0 %Lymphocytes Percent Auto24.120.5-60.0 %Monocytes Percent Auto8.11.7- 12.0 %Eosinophils Percent Auto4.70.9-7.0 %Basophils Percent Auto0.40.2-2.0 % Immature Granulocytes Pct Auto0.80.0-0.5 %Neutrophils Absolute Auto4.41.4-6.5 10 3/uLLymphocytes Absolute Auto1.71.2-3.8 10 3/uLMonocytes Absolute Auto0.60.3-0.8 10 3/uLEosinophils Absolute Auto0.30.0-0.7 10 3/uLBasophils Absolute Auto0.00.0- 0.1 10 3/uLImmature Granulocytes Abs Auto0.060.00-0.03 10 3/uLPerforming Lab:see noteML - [facility] LBCA echo doppler complete Reviewed date:04/10/2024 02:49:18 PM Interpretation: Performing Lab: Notes/Report: Source Facility: [place] [address] [place] [address] Cardiology Report Signed Patient: SHAHRZAD MCNAIR MR#: [id number] : 1945 Acct:[id number] Age/Sex: 78 / M ADM Date: 04/05/24 Loc: [place] 213-[address]: Eulalio Valencia D.O. Ordering Physician: Eulalio Valencia D.O. Date of Service: 04/05/24 Procedure(s): CA echo doppler complete Accession Number(s): [id number] cc: Zachariah Avila M.D.; Eulalio Valencia D.O. Patient Name: SHAHRZAD MCNAIR MR#: [id number] : 1945 Exam Date: 04/05/2024 Ordering Doctor: [...] Dictated By: ANCA BUTLER Signed By: 04/09/24 132 DD/ 24 TD/TT: Quality Systems Engineer:PROF ANDREEA Escobar ([facility]) (Not yet reviewed by provider) Interpretation: Performing Lab: Notes/Report: [facility] ,Qhrtet966042-756 mmol/LPotassium4.53.5-5.1 mmol/CLqvplxbc66429-342 mmol/LCarbon Boztejf82.421.0-32.0 mmol/LAnion Gap13.5Nwbmamb66880-926 mg/dLBlood Urea Dpeluqpx36.07.0-18.0 mg/dLCreatinine1.340.70-1.30 mg/dLEstimated GFR ( Suki>60>=60 mL/min/1.73m 2Estimated GFR (Non- Ame52>=60 mL/min/1.73m 2 BUN Creatinine Ratio14.6Gsagusq8.68.5-10.1 mg/dLPerforming Lab:see noteML - [facility] LBXR ribs LT min 3V w CXR1V Reviewed date:01/15/2025 11:55:31 AM Interpretation: Performing Lab: Notes/Report: Source Facility: [facility]-[address] [place] [address] [address] XRay Report Signed Patient: SHAHRZAD MCNAIR MR#: [id number] : 1945 Acct:[id number] Age/Sex: 79 / M ADM Date: 01/15/25 Loc: ER Attending Dr: Ordering Physician: Indira Vogt Date of Service: 01/15/25 Procedure(s): XR ribs LT min 3V w CXR1V Accession Number(s): [id number] cc: Zachariah Avila M.D.; Indira Vogt [place] [address] Patient Name: SHAHRZAD MCNAIR MRN: [id number] date: 1945 Sex: M Assigned Patient Location: ER Current Patient Location: ED.MAIN Accession/Order Number: [id number] Exam Date: 01/15/2025 07:30 Report Date: 01/15/2025 08:56 At the request of: INDIRA VOGT DO Procedure: XR ribs LT min 3V w CXR1V Left Rib series with Single View Chest HISTORY: Left anterior rib pain. Fell 4 days ago. COMPARISON: 12/15/2024 MEDIASTINUM: Cardiac, mediastinal hilar silhouettes are within normal limits. LUNGS AND PLEURA: Developing of nodular consolidation in the left paramediastinal region superior to the aortic arch. No pleural effusion. No pneumothorax. ACUTE FINDINGS: Anterior left seventh rib fracture identified. DEGENERATIVE CHANGE: Unremarkable SOFT TISSUE: Unremarkable POSTOP CHANGES: None XR/XR ribs LT min 3V w CXR1V IMPRESSION: Anterior left seventh rib fracture. Developing nodular consolidation in the left suprahilar/left paramediastinal region. May represent infiltrate. Malignancy should be excluded. CT chest without contrast may be useful in further assess. Impression dictated by: Gilles Francois M.D. 01/15/2025 8:56 AM Dictation Location: [place] [address] Electronically authenticated by: [id number] Y Date: 01/15/2025 08:56 Dictated By: Gilles Francois D.O. Signed By: 01/15/2558 DD/ 5 TD/TT: Quality Systems Engineer: Reason For Referral No Information Medications Medication [...] since you last smoked?1-5 yearsAdditional Findings: Tobacco fym-oftgMw-atlh heavy cigarette smoker (40+/day)AUDIT-C (Standard) Question Answer [...] W/U Status Risk Notes Problem Atrial fibrillation (29499065) Atrial fib rillation (I48.91) ActiveconfirmedProblemHyperlipidaemia (01321494)Hyperlipemia (E78.5)Active confirmedProblemHypertension (24817822)Hypertension (I10)ActiveconfirmedProblem COPD - Chronic obstructive pulmonary disease (28274118)COPD (chronic obstructive pulmonary disease) (J44.9)ActiveconfirmedProblemStroke (321959977)Stroke (I63.9)ActiveconfirmedProblemMyocardial infarction (57934628)NV (myocardial infarction) (I21.3)ActiveconfirmedProblemExpressive aphasia (874776676) Expressive aphasia (R47.01)ActiveconfirmedProblemAltered mental status (155942471)Altered mental status (R41.82)ActiveconfirmedProblemMetabolic encephalopathy (21737677)Acute metabolic encephalopathy (G93.41)Activeconfirmed ProblemEssential hypertension (31575279)BP (high blood pressure) (I10)Active confirmed Vital Signs Blood pressure diastolic 62 mm Hg 12/23/2024 Ezkqvq02 in12/23/2024lood pressure tdpfjhot858 mm Hg12/23/20246395Utffps322 lbs 12/23/2024BMI23.75 kg/m212/23/2024 Encounters Encounter Location Date Provider Diagnosis [facility] [address] [place] [address] 04/06/2024 Desiree Cuellar [facility] [place] [address] 09/27/2024Pamela CramerHypertension U75VgzmqcaNorthern [facility] [place] [address]/[facility] [place] [address]/[facility] [place] [address]/[facility] [place] [address]/[facility] [address] [place] [address]/Doug [facility] [place] [address]/Pamela CramerHypertension I67BjorlgiNorthern [facility] [place] [address]/[facility]amela CramerHypertension L57NqsqvsgNorthern [facility] [place] [address]/05/2024Pamela PoloUTI (urinary tract infection) N39.0 Assessments Encounter Date [...] INSULIN, TOTAL 09/27/2024 LIPID PANEL (CHOL/TRIG/HDL/LDL) 09/28/19 25 CBC WITH DIFF 04/11/2024 URIC ACID 09/27/2024 PSA, TOTAL 04/11/2024 Holter Monitor 24 Hour 10/21/2023 CBC AUTO DIFF 01/15/2025 CBC AUTO DIFF 01/16/2025 PROF CHEM 8 (BAS METB) 01/16/2025 PROF CHEM 8 (BAS METB) 01/15/2025 THYROID PANEL (T4/TSH/FREE T3) PSA, SCREENING 09/27/2024 CMP (COMP MET [place]) w/eGFR CKD-EPI 2024 CMP (COMP MET [place]) w/eGFR CKD-EPI 2024 CBC WITH DIFF 09/27/2024 Next Appt Details Provider Name:Desiree chandler, 01/16/2025 10:30:00 AM, [address] [place], [address], Insurance Providers Payer Name Payer Address Payer Phone Subscriber Number Group Number Insured Name Patient Relationship to Insured Coverage Start Date Coverage End Date [place]IC[place] [address] [place] [address] [id number] Julia Mcnair - patient is the insured Medical (General) History Medical History History ICD Code Hypertension I10 COPD (chronic obstructive pulmonary dise ase) J44.9 Atrial fibrillation I48.91 Stroke I63.9 NV (myocardial infarction) I21.3 Surgical History Surgery Date(Month/Year) Tonsillectomy Cataract- bilateralLumbar surgery- disc w1UOLTEOKTHDOBQDZXkpji and Pin in Right ElbowHospitalization History Reason Date(Month/Year) Encephalopathy 09/2023
--- OUTSIDE RECORDS SUMMARY | 2025-01-16 07:59 | XMS_ITS | Clinical Summary ---
Author Organization [facility] Address [address] [facility], [address] [place] [address] Care Team Providers Care Websphere Consultant Name Role Phone Unavailable Primary Care Provider Unavailabl e Allergies Active AllergyReactionsCriticalityNoted DateCommentsCocos NuciferaAnaphylaxis High11/28/2021 Medications MedicationSigDispense QuantityRefillsLast FilledStart DateEnd DateStatus atorvastatin (LIPITOR) 80 MG tablet Take 80 mg by mouth dailyActive SITagliptin (JANUVIA) 100 MG tablet Take 100 mg by mouth dailyActive lisinopril (PRINIVIL;ZESTRIL) 10 MG tablet Take 1 tablet by mouth daily 30 tablet ctive metoprolol tartrate (LOPRESSOR) 25 MG tablet Take 1 tablet by mouth 2 times daily 60 tablet ctive tamsulosin (FLOMAX) 0.4 MG capsule Take 1 capsule by mouth daily 30 capsule ctive amiodarone (CORDARONE) 200 MG tablet Take 1 tablet by mouth 2 times daily for 9 doses 9 tablet 12/03/2021ctive amiodarone (CORDARONE) 200 MG tablet Take 1 tablet by mouth daily 90 tablet 12/08/2021ctive aspirin 81 MG EC tablet Take 81 mg by mouth daily12/03/2021iscontinued(Stop Taking at Discharge) sotalol (BETAPACE) 120 MG tablet Take 60 mg by mouth 2 times daily12/03/2021iscontinued(Stop Taking at Discharge) Active Problems ProblemNoted DateDiagnosed DateHemorrhagic frjdpv5112/03/2021trial fibrillation with RVR12/02/2021rimary mwdnwlvakyyc52/12/2022Type 2 diabetes mellitus without complication, without long-term current use of pwqbijy56/12/2022COPD (chronic obstructive pulmonary disease)12/02/2021AF (paroxysmal atrial fibrillation) 11/29/20213560Yzxwqp05/09/2022erebrovascular accident (CVA)2Otitis media with effusion, left11/28/2021 Family History Medical HistoryRelationNameCommentsCancerMotherRelationNameStatusCommentsMother Social History Tobacco UseTypesPacks/DayYears UsedDateSmoking Tobacco: FormerCigarettes Tobacco Cessation:Counseling Given: Not Answered Alcohol UseStandard Drinks/WeekCommentsYes0 (1 standard drink = 0.6 oz pure alcohol)occ beerAUDIT-CAnswerDate RecordedQ1: How often do you have a drink containing alcohol?Monthly or less11/28/2021Q2: How many drinks containing alcohol do you have on a typical day when you are drinking?5 or 6011/28/2021Q3: How often do you have six or more drinks on one occasion?Less than monthly 11/28/2021ex and Gender InformationValueDate RecordedSex Assigned at BirthNot on fileLegal EgdYxmr6709/22/2021 7:59 PM EDTGender IdentityNot on fileSexual OrientationNot on file Last Filed Vital Signs Vital SignReadingTime TakenCommentsBlood Rxgvcfqf953/8312/04/2021 10:00 AM EDT Pbyaz327312/04/2021 10:00 AM PWRBnfgisjaign58.6 ??C (97.9 ??F)12/04/2021 8:00 AM EDTRespiratory Kkei044212/04/2021 10:00 AM EDTOxygen Rofydirkdb70%12/04/2021 10:00 AM EDTInhaled Oxygen Concentration--Cwhjlx67 kg (207 lb 3.7 oz)11/28/2021 6:29 AM JOVWjrhpn902.4 cm (6' 1 )11/28/2021 6:29 AM EDTBody Mass Index27.34011/28/2021 6:29 AM EDT Plan of Treatment Health MaintenanceDue DateLast DoneCommentsDepression Tnhbew9110/23/1958Diabetic Alb to Cr ratio (uACR) test1964Hepatitis C hcdhzt5910/23/1964DTaP/Tdap/Td vaccine (1 - Tdap)1965Pneumococcal 50+ years Vaccine (1 of 1 - PCV) 1996Shingles vaccine (1 of 2)1996Respiratory Syncytial Virus (RSV) or age 60 yrs+ (1 - 1-dose 75+ series)10/23/20213723Wqazln94/08/2023 11/28/2021GFR test (Diabetes, CKD 3-4, OR last GFR 15-59)/, 12/03/2021, 12/01/2021, Additional history existsFlu vaccine (#1)10/21/2024 COVID-19 Vaccine (2024- season), 06/12/2020, 1A1C test (Diabetic or Prediabetic)Akqayvwiefgb65/08/2022Hepatitis A vaccineAged OutNo longer eligible based on patient's age to complete this topic Hepatitis B vaccineAged OutNo longer eligible based on patient's age to complete this topicHib vaccineAged OutNo longer eligible based on patient's age to complete this topicMeningococcal (ACWY) vaccineAged OutNo longer eligible based on patient's age to complete this topicMeningococcal B vaccineAged OutNo longer eligible based on patient's age to complete this topicPolio vaccineAged OutNo longer eligible based on patient's age to complete this topic Procedures Procedure NamePriorityDate/TimeAssociated DiagnosisCommentsBASIC METABOLIC PANEL Yofpqyd5312/04/2021 6:18 AM EDT LIPID UHGIJHpbzscx11/08/2022 7:37 AM EDT HEMOGLOBIN O4LPbqeskd47/08/2022 3:59 AM EDT from Last 3 Months or Most Recently Relevant to Health Maintenance Results * (ABNORMAL) Basic Metabolic Panel (12/04/2021 6:18 AM EDT)ComponentValueRef RangeTest MethodAnalysis TimePerformed AtPathologist PgzukbgtdSxkiujp092(H)70 - 99 mg/dL12/04/2021 6:18 AM EDTMERCY VNNROZABCZPAESU867 - 23 mg/dL12/04/2021 6:18 AM EDTMERCY LABORATORIESCreatinine0.69(L)0.70 - 1.20 mg/dL12/04/2021 6:18 AM EDTMERCY LABORATORIESCalcium8.3(L)8.6 - 10.4 mg/dL12/04/2021 6:18 AM EDT MERCY EJLZJYKSKEYWVpbopd010(L)135 - 144 mmol/L12/04/2021 6:18 AM EDTMERCY LABORATORIESPotassium4.03.7 - 5.3 mmol/L12/04/2021 6:18 AM EDTMERCY JWHRVJRKLJEIBmxjzegx07636 - 107 mmol/L12/04/2021 6:18 AM EDTMERCY LABORATORIES ZN61300 - 31 mmol/L12/04/2021 6:18 AM EDTMERCY LABORATORIESAnion Lyn839 - 17 mmol/L12/04/2021 6:18 AM EDTMERCY LABORATORIESGFR Non->60>60 mL/min12/04/2021 6:18 AM EDTMERCY LABORATORIESGFR >60>60 mL/min12/04/2021 6:18 AM EDTMERCY LABORATORIESGFR Tomphgo7012/04/2021 6:18 AM EDTMERCY LABORATORIESComment: Average GFR for 70 or more years old: 75 mL/min/1.73sq m Chronic Kidney Disease: <60 mL/min/1.73sq m Kidney failure: <15 mL/min/1.73sq m ? eGFR calculated using average adult body mass. Additional eGFR calculator available at: ? http://www.Efizity/multiple_crcl_2012.htm ? Specimen (Source)Anatomical Location / LateralityCollection Method / Volume Collection TimeReceived TimeBLOOD SPECIMEN / Golwtsl5312/04/2021 6:18 AM EDT 12/04/2021 6:30 AM EDT Narrative Authorizing ProviderResult TypeResult StatusAdina Do AUTOMATION AND CONTROLS INSTRUCTOR - CNPCHEMISTRY ORDERABLESFinal ResultPerforming OrganizationAddressCity/State/ZIP CodePhone Number [facility] [address] [place] [address], [facility] [phone] * (ABNORMAL) Lipid Panel (11/28/2021 7:37 AM EDT)ComponentValueRef RangeTest MethodAnalysis TimePerformed AtPathologist XyaeroplcZwldoeitcpt049<200 mg/dL 11/28/2021 7:37 AM EDTMERCY LABORATORIESComment: Cholesterol Guidelines: <200 Desirable 200-240 ??Borderline >240 Undesirable HDL34(L)>40 mg/dL11/28/2021 7:37 AM EDTMERCY LABORATORIESComment: HDL Guidelines: <40 Undesirable 40-59 ?Borderline >59 Desirable LDL Cllykqsxjin411 - 130 mg/dL11/28/2021 7:37 AM EDTMERCY LABORATORIESComment: LDL Guidelines: <100 Desirable 100-129 ?? Near to/above Desirable 130-159 ?? Borderline >159 Undesirable Direct (measured) LDL and calculated LDL are not interchangeable tests. Chol/HDL Ratio3.6< 7:37 AM EDTMERCY LABORATORIESComment:Triglycerides 71<150 mg/dL11/28/2021 7:37 AM EDTMERCY LABORATORIESComment: Triglyceride Guidelines: <150 Desirable 150-199 ??Borderline 200-499 ??High >499 Very high Based on AHA Guidelines for fasting triglyceride, December 2011. Specimen (Source)Anatomical Location / LateralityCollection Method / Volume Collection TimeReceived Time11/28/2021 7:37 AM EDT11/28/2021 7:49 AM EDT Narrative Authorizing ProviderResult TypeResult StatusPaul Eber MDCHEMISTRY ORDERABLES Final ResultPerforming OrganizationAddressCity/State/ZIP CodePhone Number [place] [id number] [address] [phone] * (ABNORMAL) Hemoglobin A1c (11/28/2021 3:59 AM EDT)ComponentValueRef RangeTest MethodAnalysis TimePerformed AtPathologist SignatureHemoglobin A1C8.1(H)4.0 - 6.0 %11/28/2021 3:59 AM EDTMERCY LABORATORIESEstimated Avg Nmdhluc290pv/dL 11/28/2021 3:59 AM EDTMERCY LABORATORIESComment: The ADA and AACC recommend providing the estimated average glucose result to permit better patient understanding of their HBA1c result. Specimen (Source)Anatomical Location / LateralityCollection Method / Volume Collection TimeReceived TimeBLOOD SPECIMEN / Utkxsgp4711/28/2021 3:59 AM EDT 11/28/2021 4:15 AM EDT Narrative Authorizing ProviderResult TypeResult StatusPaul Eber MDCHEMISTRY ORDERABLES Final ResultPerforming OrganizationAddressCity/State/ZIP CodePhone Number [facility] [address] [place] [address], [facility] [phone] from Last 3 Months or Most Recently Relevant to Health Maintenance Insurance * Guarantor: Davon Mcnair TypeRelation to PatientDate of BirthPhone Billing AddressPersonal/JfnfxqIfih55/03/1946 ([place]) [address] [place] [address] Advance Directives * Full Code (Latest Code Status on File) Date ActivatedDate InactivatedComments11/28/2021 3:26 AM12/04/2021 2:54 PM
--- OUTSIDE RECORDS SUMMARY | 2025-01-16 07:59 | XMS_ITS | Clinical Summary ---
Author Organization [facility] Address [address] [place] [address] Phone Care Team Providers Care Supervisor Landscape Name Role Phone Raphael Avila MD Primary Care Provider [phone] Allergies Active AllergyReactionsCriticalityNoted DateCommentsCoconut WsoSwlpr25/09/2023 Medications MedicationSigDispense QuantityRefillsLast FilledStart DateEnd DateStatus aspirin [...] Problems ProblemNoted DateDiagnosed DateBMI 24.0-24.9, adult10/26/2024Prolonged QT dilscxnw84/06/2025TIA (transient ischemic attack)04/20/2024Stenosis of right carotid jowmsb1701/28/2024Former bgquxf0907/30/20234549Zkkmnz54/09/2023Essential glkyvqjqheao15/09/9836Khucjsbtllwpnj83/09/2023ersistent atrial fibrillation 01/29/2023Single vessel coronary fiplcvj1401/29/2023High risk medication use 01/29/20237072Gwjvgi40/09/2023MI 26.0-26.9,adult01/29/2023 Encounters DateTypeDepartmentCare DnnePkpzfmsxymm95/03/2025 2:00 PM EDTAncillary Procedure [address] [place] [address] Kristin Mcmanus LPN High risk medication use; Persistent atrial fibrillation (Multi) Discharge Disposition: Home11/23/20247641Jkziwu84/22/[address] [facility] [address] [place] [address] Irena Lynn LPN Persistent atrial fibrillation (Multi)11/09/2024 2:00 PM EDTAncillary Procedure [address] [place] [address] Clyde Yoo MA Persistent atrial fibrillation (Multi) (Primary Dx); High risk medication use11/09/20241785Azrrbf46/06/2025 2:30 PM EDTOffice Visit [address] [address] Sherlyn Larson MD Persistent atrial fibrillation (Multi) (Primary Dx); Single vessel coronary disease; High risk medication use; Stenosis of right carotid artery; Mixed hyperlipidemia; Essential hypertension; Anemia, unspecified type; Cerebrovascular accident (CVA), unspecified mechanism (Multi); Former smoker; BMI 24.0-24.9, adult; Prolonged QT /06/2025Travelfrom Last 3 Months Immunizations ImmunizationAdministration DatesNext DueInfluenza, Avhbsuducqg14/01/2018Pfizer Purple Cap VJWE-RkV-430/,06/12/2020,05/21/2020 Family History Medical HistoryRelationNameCommentsNo Known ProblemsFatherNo Known Problems MotherRelationNameStatusCommentsFatherMother Social History Tobacco UseTypesPacks/DayYears UsedDateSmoking Tobacco: FormerCigarettesQuit: 2019Smokeless Tobacco: Never Tobacco Cessation:Counseling Given: Not Answered Alcohol UseStandard Drinks/WeekCommentsYes2 (1 standard drink = 0.6 oz pure alcohol)occasionallySex and Gender InformationValueDate RecordedSex Assigned at BirthNot on fileLegal NgwAbyf93/26/2022 6:44 PM ESTGender IdentityNot on file Sexual OrientationNot on file Last Filed Vital Signs Vital SignReadingTime TakenCommentsBlood Phynojmx992/5809 4:38 PM EDT Eccec5933 4:38 PM EDTTemperature--Respiratory Rate--Oxygen Saturation-- Inhaled Oxygen Concentration--Wbkjio64.6 kg (182 lb)11/23/2024 4:38 PM EDTHeight 185.4 cm (6' 1 )11/23/2024 4:38 PM EDTBody Mass Index24.0109 4:38 PM EDT Plan of Treatment DateTypeDepartmentCare Team (Latest Contact Info)Crdyyrvsycq54/19/2026 3:00 PM EDTOffice Visit [facility] [address] [address] Sherlyn Larson MD [address] [facility] 2, [place] [address] [place] [address] Health MaintenanceDue DateLast DoneCommentsLipid Panel1946Medicare Annual Wellness Visit (AWV)1946Hepatitis C Neuryrvqi31/03/1965Pneumococcal Vaccine (1 of 2 - PCV)1965DTaP/Tdap/Td Vaccines (1 - Tdap)1968Zoster Vaccines (1 of 2)1996RSV High Risk: (Elderly (60+) or Population) (1 - 1-dose 75+ series)2Diabetes Kvfjvzeyw72/10/2021Influenza Vaccine (#1)5003/23/2017COVID-19 Vaccine ( season)2024 01/15/2021, 06/12/2020, 7484BhrqswureirGaakfdcrdorp09/27/2020Colorectal Cancer ScreeningDiscontinuedIrritable Bowel CgxnelbfUbsahsxxkfre43/27/2020CT ColonographyDiscontinuedFIT-DNA (Cologuard)DiscontinuedFITDiscontinuedHIB VaccinesAged OutNo longer eligible based [...] medication use Persistent atrial fibrillation (Multi) ECG 12-MLFBPtbreqj75/20/2025 1:08 PM EDT High risk medication use Persistent atrial fibrillation (Multi) ECG 12-DAJCVpziyro16/06/2025 2:30 PM EDT High risk medication use Persistent atrial fibrillation (Multi) ZDNRMERPCVI68/27/2020 from Last 3 Months or Most Recently [...] Mcnair TypeRelation to PatientDate of BirthPhone Billing AddressPersonal/ZtvevgMduj59/03/1946 [address] [place] [id number] * Guarantor: Davon Mcnair TypeRelation to PatientDate of BirthPhone Billing AddressPersonal/AonasuOcka38/03/1946 [address] [address] Care Teams Team MemberRelationshipSpecialtyStart DateEnd Raphael Avila MD [address] [facility] [place] [address] PCP - GeneralFamily Medicine04/20/24
--- OUTSIDE RECORDS SUMMARY | 2025-01-16 08:03 | XMS_ITS | CCD ---
Author Organization [facility] Care Team Providers Care Airline Reservationist Name Role Phone VERONICA LIZ Attending Unavailable [...] Unavailable PAY ., DR ORLANDO Attending Unavailable [place], DR REINA [employer] Unavailable PAY ., [...] Care Provi miya Marsha LEW, Rosyf Unavailable [phone] Zachariah Ochoa MD Primary Care Provider [phone] Zachariah Ochoa MD Primary Care Provider [phone] MARCIANO HI Attending Unavailable MARCIANO HI Attending [...] TypeDate of OnsetReaction(s) Facility (2 sources)Coconut extractDrug [facility]ergyS[facility] MOD[facility]FT Other (1 source)coconut allergenic extractDrug Cyfbwzu02-55-5675FbuhvxqhichZXTJohn [facility] Center (1 source)Coconut extractDrug Fanltzd31-33-0342NljCleveland Clinic Foundation Repository (4 sources)Coconut Oil OIL; Translations: [Coconut Oil OIL]Allergy to drug (finding)[facility] DO Work Phone: (10 sources)Coconut Oil; Translations: [COCONUT OIL]Drug Htitlmq82-88-6451JypgkZanesville City Hospital (1 source)Coconut extractDrug Yxvbeja32-35-7757BbxftrqaxOhiohealth [facility] Repository Medications Current Medications MedicationDrug Class(es)DatesSig (Normalized)Sig (Original)amiodarone hydrochloride 200 mg oral tablet (3 sources)AntiarrhythmicStart: 12-08-2021 End: 33-88-8277wklj 1 tablet by mouth once dailyamiodarone (CORDARONE) 200 MG tablet Take 1 tablet by mouth daily 90 tablet 0 12/08/2021 03/08/2022ctive Start: 12-03-2021 End: 91-62-3329kjqd 1 tablet by mouth twice dailyamiodarone (CORDARONE) 200 MG tablet Take 1 tablet by mouth 2 times daily for 9 doses 9 tablet 0 12/03/2021 12/08/2021 ActiveStart: 12-03-2021 End: 83-75-0241canehgpxsa (CORDARONE) tablet 200 mgAspir-81 (2 sources)Aspir-81 Activeaspirin 81 mg delayed release oral tablet (20 sources)Platelet Aggregation Inhibitor, Nonsteroidal Anti-inflammatory Drug Start: 05-30-2020 End: 25-14-2921vvjb 1 tablet by mouth once dailyStart: 05-29-2020 End: 70-65-2714lpys 1 tablet by mouth once dailyAspirin 81 mg Tablet Discontinued 81 MG PO Daily May 29, 2020 1:00am May 30, 2020 1:41pmStart: 03-31-2019 End: 72-27-8267nnql 1 tablet by mouth once dailyAspirin (Aspir-81) 81 mg Tablet,Delayed Release (Dr/Ec) Discontinued 81 MG PO Daily March 31, 2019 1:00am April 20, 2019 12:16pmatorvastatin 80 mg oral tablet (20 sources)HMG-CoA Reductase InhibitorStart: 48-02-9017jesl 1 tablet by mouth once daily in the eveningbelladonna alkaloids 16.2 mg / opium 60 mg rectal suppository (1 source)Start: 82-46-0224uvuli-belladonna (B&O SUPPRETTES) 16.2-60 MG suppository 60 mgcefdinir 300 mg oral capsule (2 sources)Cephalosporin AntibacterialStart: 12-02-2021 End: 54-28-9192nyca 1 capsule by mouth every twelve hourscefdinir (OMNICEF) 300 MG capsule Take 1 capsule by mouth every 12 hours for 8 doses 8 capsule 0 12/07/2021 Active0.3 ml enoxaparin sodium 100 mg/ml prefilled syringe (1 source)Low Molecular Weight HeparinStart: 79-26-7754mckactcvkx Sodium (LOVENOX) injection 30 mgglucagon (rdna) 1 mg injection (1 source)Antihypoglycemic AgentStart: 10-15-5753vutxxhpe (rDNA) injection 1 mg 1000 ml glucose 100 mg/ml injection (3 sources)Start: 29-73-6080iuhdegjd 10 % infusionStart: 79-97-4630zmpmlhij bolus 10% 125 mLStart: 03-57-5787jurmolo chewable tablet 16 ghyoscyamine sulfate 0.125 mg sublingual tablet (1 source)Start: 25-06-3686opmzmrxxhdn (LEVSIN/SL) sublingual tablet 125 mcg ibuprofen 400 mg oral tablet (8 sources)Nonsteroidal Anti-inflammatory Drugtake 1 tablet by mouth twice daily ibuprofen 400 MG tablet Take 1 tablet twice a day by oral route. Activeinsulin lispro 100 unt/ml injectable solution (3 sources)Insulin AnalogStart: 11-28-2021 End: 90-53-8913awkvzlw lispro (HUMALOG) injection vial 0-16 Unitslabetalol hydrochloride 5 mg/ml injectable solution (1 source)beta-Adrenergic BlockerStart: 60-92-8039lyvclptqc (NORMODYNE;TRANDATE) injection 10 mglisinopril 10 mg oral tablet (20 sources)Angiotensin Converting Enzyme InhibitorStart: 59-37-2201cawq 0.5 tablet by mouth once dailylisinopril 10 mg tablet Take 0.5 tablets (5 mg) by mouth once daily. 11/04/2023 ActiveStart: 44-71-3064cyuvuqqqvb 10 mg tablet 1 tablet (10 mg) once daily. 11/04/2023 ActiveStart: 35-19-8788ases 1 tablet by mouth once dailylisinopril (PRINIVIL;ZESTRIL) 10 MG tablet Take 1 tablet by mouth daily 30 tablet 3 12/03/2021 ActiveStart: 11-27-2021 End: 13-36-0745eptm 1 tablet by mouth once dailyLisinopril 5 MG Oral Tablet TAKE 1 TABLET DAILY. Quantity: 90 Refills: 3 Ordered: 27-Nov-2021 Veronica Liz MD Start : 27-Nov-2021 Active new doseStart: 04-01-2019 End: 06-16-9403hyeb 1 tablet by mouth once dailyloperamide hydrochloride 2 mg oral capsule (1 source)Opioid AgonistStart: 19-95-9866uprlnfmpre (IMODIUM) capsule 2 mg magnesium oxide 400 mg oral tablet (1 source)Start: 11-11-2024 End: 45-04-8598hrnl 1 tablet by mouth twice dailymagnesium oxide (Mag-Ox) 400 mg (241.3 mg elemental) tablet Indications: Persistent atrial fibrillation (Multi) Take 1 tablet by mouth 2 times a day. 11/11/2024 11/11/2025 Activemetoprolol tartrate 25 mg oral tablet (7 sources)beta-Adrenergic BlockerStart: 05-69-9633brro 1 tablet by mouth twice dailymetoprolol tartrate (LOPRESSOR) 25 MG tablet Take 1 tablet by mouth 2 times daily 60 tablet 3 12/03/2021 ActiveStart: 84-52-0349snohcyyror (LOPRESSOR) injection 5 mgStart: 03-31-2019 End: 13-13-2338Lfzvszults Tartrate 50 mg tablet Discontinued 75 MG PO Twice daily March 31, 2019 4:13pm 2019 12:16pmStart: 03-31-2019 End: 18-34-7946hxsx 75 mg by mouth twice dailyMetoprolol Tartrate Discontinued 75 MG PO Twice daily March 31, 2019 4:13pm April 20, 2019 12:16pmStart: 05-13-2018 End: 19-88-5992necg 1 tablet by mouth twice dailyMetoprolol Tartrate 50 mg Tablet Discontinued 50 MG PO Twice daily 60 May 13, 2018 1:00am March 31, 2019 4:13pmondansetron (ZOFRAN-ODT) disintegrating tablet 4 mg (1 source)Start: 27-68-6223pategsfsjlu (ZOFRAN-ODT) disintegrating tablet 4 mg SITagliptin 100 mg oral tablet (9 sources)Dipeptidyl Peptidase 4 InhibitorStart: 11-29-6156mfxn 1 tablet by mouth once daily5 ml sodium chloride 9 mg/ml injection (2 sources)Start: 09-46-3764ymxqla chloride flush 0.9 % injection 10 mLStart: 11-28-2021 End: .9 % sodium chloride infusionsotalol hydrochloride 80 mg oral tablet (20 sources)AntiarrhythmicStart: 10-26-2024 End: 75-76-7447mjpu 0.5 tablet by mouth three times dailysotalol (Betapace) 80 mg tablet Indications: Persistent atrial fibrillation (Multi) Take 0.5 tablets (40 mg) by mouth 3 times a day. 135 tablet 3 10/26/2024 10/26/2025 ActiveStart: 12-11-2023 End: 96-91-3744pqwm 1 tablet by mouth every twelve hourssotalol (Betapace) 80 mg tablet Take 1 tablet (80 mg) by mouth every 12 hours. 12/11/2023 10/26/2024 Discontinued (Reorder)Start: 08-21-2023 End: 03-68-2651vfcm 1 tablet by mouth twice dailysotalol (sotalol AF) 120 mg tablet Indications: Persistent atrial fibrillation (Multi) Take 1 tablet (120 mg) by mouth 2 times a day. 180 tablet 3 08/21/2023 01/28/2024 Discontinued (Dose adjustment)Start: 53-84-4275tnjp 1 tablet by mouth twice dailysotalol AF (Betapace AF) 120 MG tablet TAKE 1/2 TABLET TWICE A DAY BY MOUTH 03/11/2023 ActiveStart: 23-96-3705xoql 1 tablet by mouth twice dailysotalol AF 120 mg tablet Indications: Persistent atrial fibrillation (Multi) TAKE 1/2 TABLET BY MOUTH TWICE A DAY 90 tablet 1 03/11/2023 ActiveStart: 57-13-1974aehr 1 tablet by mouth twice dailySotalol HCl (AF) 120 MG Oral Tablet take 1/2 tablet by mouth twice daily Quantity: 90 Refills: 1 Ordered: 06-Jun-2022 Veronica Liz MD Start : 17-Feb-2022 ActiveStart: 04-20-2019 End: 58-34-2126ocoh 0.5 tablet by mouth twice dailysotalol AF [...] 0.4 mg oral capsule (2 sources)alpha-Adrenergic BlockerStart: 05-52-0705swsp 1 capsule by mouth once dailytamsulosin (FLOMAX) 0.4 MG capsule Take 1 capsule by mouth daily 30 capsule 3 12/03/2021 Active Completed/Discontinued Medications MedicationDrug Class(es)DatesSig (Normalized)Sig (Original)acetaminophen 500 mg oral tablet (3 sources)Start: 11-29-2021 End: 06-53-9114wuciprsesjunv (TYLENOL) tablet 1,000 mgStart: 11-28-2021 acetaminophen (TYLENOL) tablet 650 mgamoxicillin 875 mg / clavulanate 125 mg oral tablet (1 source)Penicillin-class AntibacterialStart: 11-28-2021 End: 03-10-7050eggxautsfzv-clavulanate (AUGMENTIN) 875-125 MG per tablet 1 tabletapixaban 5 mg oral tablet (4 sources)Factor Xa InhibitorStart: 05-13-2018 End: 83-74-0810znae 1 tablet by mouth twice dailyApixaban (Eliquis) 5 mg Tablet Discontinued 5 MG PO Twice daily 60 April 01, 2019 1:00am May 30, 2020 1:41pm50 ml calcium gluconate 20 mg/ml injection (1 source)Start: 11-29-2021 End: 23-04-0120puvcnjj gluconate 1000 mg in sodium chloride 50 mLcefTRIAXone (ROCEPHIN) 1,000 mg in sterile water 10 mL IV syringe (1 source)Start: 11-28-2021 End: 42-19-4812yxsGJKBGqdi (ROCEPHIN) 1,000 mg in sterile water 10 mL IV syringe cephalexin 500 mg oral capsule (3 sources)Cephalosporin AntibacterialStart: 52-21-4358pzic 1 capsule by mouth every eight hoursCephalexin 500 MG Oral Capsule TAKE 1 CAPSULE BY MOUTH EVERY 8 HOURS Quantity: 30 Refills: 0 Ordered: 01-Dec-2020 DO Start : 01-Dec-2020 CompleteStart: 05-14-2018 End: 12-90-8078cmak 1 capsule by mouth twice dailyCephalexin 500 mg capsule Discontinued 500 MG PO Twice daily 09 01May 14, 2018 1:00am March 31, 2019 4:09pmclopidogrel 75 mg oral tablet (2 sources)P2Y12 Platelet InhibitorStart: 04-01-2019 End: 48-88-6766hrbs 1 tablet by mouth once dailyClopidogrel (Plavix) 75 mg tablet Discontinued 75 MG PO Daily 30 April 01, 2019 1:00am April 20, 2019 12:16pm1 ml dexamethasone phosphate 4 mg/ml injection (1 source)CorticosteroidStart: 11-28-2021 End: 50-59-0773uxfhanwtxhrcc (DECADRON) injection 4 mgdexamethasone 1 mg/ml / tobramycin 3 mg/ml ophthalmic suspension (1 source)Aminoglycoside Antibacterial, CorticosteroidStart: 48-23-1002xgcy 2 drop(s) into the eye(s) four times dailyTobramycin-Dexamethasone 0.3-0.1 % Ophthalmic Suspension PLACE 2 DROPS INTO BOTH EYES 4 TIMES A DAYQuantity: 5 Refills: 0 Ordered: 22-Aug-2021 DO Start : 22-Aug-2021 Complete1 ml diphenhydrAMINE hydrochloride 50 mg/ml cartridge (1 source)Histamine-1 Receptor AntagonistStart: 11-30-2021 End: 23-04-2958fyzjyoypihPQYKD (BENADRYL) injection 25 mgfamotidine (PEPCID) 20 mg in sodium chloride (PF) 10 mL injection (1 source)Start: 11-28-2021 End: 39-41-9480iurjbafcmb (PEPCID) 20 mg in sodium chloride (PF) 10 mL injection gadoteridol (PROHANCE) injection 20 mL (1 source)Start: 11-28-2021 End: 56-34-4852lrvjeyqwzns (PROHANCE) injection 20 mLiopamidol (ISOVUE-370) 76 % injection 90 mL (1 source)Start: 11-28-2021 End: 16-01-8115lacguiirq (ISOVUE-370) 76 % injection 90 mL5 ml levETIRAcetam 100 mg/ml injection (1 source)Start: 11-28-2021 End: 81-44-1733zzaUKHAYxyaim (KEPPRA) injection 500 mg100 ml magnesium sulfate 10 mg/ml injection (2 sources)Start: 11-29-2021 End: 72-80-6015whxssyzta sulfate 1000 mg in dextrose 5% 100 mL IVPBStart: 11-28-2021 End: 38-66-7303sgzfsvdtt sulfate 4000 mg in 100 mL IVPB premixmetFORMIN hydrochloride 500 mg oral tablet (2 sources)BiguanideStart: 05-13-2018 End: 25-46-7248axri 1 tablet by mouth twice daily at mealtimeMetformin 500 mg Tablet Discontinued 500 MG PO Twice daily with meals 60 May 13, 2018 1:00amMarch 31, 2019 4:09pmmethylPREDNISolone 4 MG Oral Tablet Therapy Pack (1 source)Start: 85-94-3991iorjphOYQHIKNhhopu 4 MG Oral Tablet Therapy Pack TAKE [...] topical ointment (1 source)RNA Synthetase Inhibitor AntibacterialStart: 00-72-0322Lesafuanp 2 % External Ointment APPLY TOPICALLY 3 TIMES DAILY Quantity: 22 Refills: 0 Ordered: 01-Dec-2020 DO Start : 01-Dec-2020 CompleteniCARdipine (CARDENE) 20 mg in 0.9 % sodium chloride 200 mL solution (1 source)Start: 11-28-2021 End: 55-27-7013czLZQboksru (CARDENE) 20 mg in 0.9 % sodium chloride 200 mL solutionnitroglycerin 0.4 mg sublingual tablet (10 sources)Nitrate VasodilatorStart: 79-36-9813Nkzwvdvtmsxkl 0.4 MG Sublingual Tablet Sublingual DISSOLVE 1 TABLET UNDER THE TONGUE NEEDED Quantity: 25 Refills: 0 Ordered: 26-Dec-2021 DO Start : 26-Dec-2021 ActiveStart: 04-01-2019 End: 69-90-7522Adaultfecogre 0.4 mg Tablet, Sublingual Discontinued 0.4 MG SUBLINGUAL Q5M as needed for Chest Pain25 April 01, 2019 1:00am July 31, 2020 1:34pmofloxacin 3 mg/ml ophthalmic solution (2 sources)Quinolone AntimicrobialStart: 11-30-2021 End: 68-76-6186gpczlvmlf (OCUFLOX) 0.3 % solution 5 dropStart: 11-28-2021 End: 97-25-3824ukfbcnrnp (OCUFLOX) 0.3 % solution 10 dropomeprazole 20 mg delayed release oral capsule (2 sources)Proton Pump InhibitorStart: 05-30-2020 End: 29-76-8723xcio 1 capsule by mouth once dailyOmeprazole 20 mg Capsule,Delayed Release(Dr/Ec) Discontinued 20 MG PO Daily May 30, 2020 1:00am July 31, 2020 1:34pmpolysaccharide iron complex 150 mg oral capsule (2 sources)Start: 04-20-2019 End: 14-49-7829Grrkpqeprgxqcs Iron Complex 150 mg iron capsule Discontinued 150 MG PO Every 48 hours 15 April 20, 2019 1:00am June 12, 2020 2:24pm2 ml prochlorperazine 5 mg/ml injection (1 source)PhenothiazineStart: 11-30-2021 End: 84-20-3615yguytpdfsnziqlbk (COMPAZINE) injection 10 mgsulfamethoxazole 800 mg / trimethoprim 160 mg oral tablet (1 source)Dihydrofolate Reductase Inhibitor Antibacterial, Sulfonamide AntimicrobialStart: 75-30-5738isrs 1 tablet by mouth twice daily Sulfamethoxazole-Trimethoprim 800-160 MG Oral Tablet TAKE 1 TABLET BY MOUTH TWICE A DAY FOR 1 WEEK Quantity: 14 Refills: 0 Ordered: 22-Aug-2021 DO Start : 22-Aug-2021 CompletetraMADol hydrochloride 50 mg oral tablet (1 source)Opioid AgonistStart: 35-49-6319agii 1 tablet by mouth every four hours as needed for paintraMADol HCl - 50 MG Oral Tablet TAKE ONE TABLET BY MOUTH EVERY 4 HOURS NEEDED FOR PAIN Quantity: 20 Refills: 0 Ordered: 01-Dec-2020 DO Start : 01-Dec-2020 Completevancomycin (VANCOCIN) 1750 mg in sodium chloride 0.9 % 500 mL IVPB (1 source)Start: 11-28-2021 End: 80-89-5744nixtabjkdz (VANCOCIN) 1750 mg in sodium chloride 0.9 % 500 mL IVPB Problems Active Problems Problem ClassificationProblemDateDocumented DateEpisodic/ChronicAcquired foot deformities (4 sources)Right foot drop; Translations: [Foot drop, right foot]01-07-2024 EpisodicAcute cerebrovascular disease (19 sources)Cerebrovascular accident; Translations: [Cerebral infarction, unspecified]Onset: 26-01-2814QindtvyXmgrj myocardial infarction (2 sources)Acute myocardial infarction of inferior wall; Translations: [ST elevation (STEMI) myocardial infarction involving other coronary artery of inferior wall]61-62-3951NnzyasdApldqwbmt infection; unspecified site (2 sources)Bacteremia; Translations: [Bacteremia]18-45-3835BrblhgsjQeurybb tract disease (4 sources)Cholangiectasis; Translations: [Other specified diseases of biliary tract]54-81-3055QonuvqsKmkjfbo tract disease (2 sources)Common bile duct calculus; Translations: [Calculus of bile duct without cholangitis or cholecystitis without obstruction]94-50-1782Afmhtxyq Cardiac dysrhythmias (20 sources)Paroxysmal atrial fibrillation; Translations: [Cardiac arrhythmia, unspecified]Onset: 97-65-1269RanuhqsOqqbqsa obstructive pulmonary disease and bronchiectasis (6 sources)Chronic obstructive pulmonary disease, unspecified; Translations: [Chronic obstructive lung disease]Onset: 92-51-3218XhndsufBdfoxcgz atherosclerosis and other heart disease (20 sources)Single coronary vessel disease; Translations: [Coronary atherosclerosis of unspecified type of vessel, red devil or graft]Onset: 09-25-2021 36-72-0984HjehqquEcrlbno on above:Problem List clean-up per request of Phys. EHR CmteCoronary atherosclerosis and other heart disease (2 sources)Past history of procedure; Translations: [Coronary angioplasty status]40-28-7429YoxvzsmwXsjnicwohi and other anemia (2 sources)Anemia due to blood loss; Translations: [Iron deficiency anemia secondary to blood loss (chronic)]74-54-8060ZdgfludYkoenbokdy and other anemia (20 sources)Anemia; Translations: [Anemia, unspecified]Onset: 62-13-0263Leelimtf Comment on above:Problem List clean-up per request of Phys. EHR CmteDeficiency and other anemia (2 sources)Microcytic anemia; Translations: [Iron deficiency anemia, unspecified]EpisodicDeficiency and other anemia (6 sources)Anemia, unspecified; Translations: [ANEMIA UNSPECIFIED]Onset: 86-83-2646WorabutsUnedxkyd mellitus with complications (3 sources)Polyneuropathy due to diabetes mellitus; Translations: [Diabetes 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]03-17-2024 ChronicDiabetes mellitus without complication (5 sources)Type 2 diabetes mellitus without complication; Translations: [Type 2 diabetes mellitus without complications]Onset: 30-98-9465NetvcqmIvgqzki on above:Problem List clean-up per request of Phys. EHR CmteDisorders of lipid metabolism (20 sources)Hyperlipidemia; Translations: [Other and unspecified hyperlipidemia] Onset: 337798-71-4943LoomhtqFcbcgvg on above:Problem List clean-up per request of Phys. EHR CmteE Codes: Fall (2 sources)Fall on same level, unspecified, initial encounter; Translations: [Fall on same level from slipping, tripping and stumbling with subsequent striking against other object, initial encounter]Onset: 06-03-7438Jclzyesf Esophageal disorders (1 source)Gastro-esophageal reflux disease without esophagitis; Translations: [GERD WITHOUT ESOPHAGITIS]Onset: 13-84-9922RaxthnmUkjqjvivu hypertension (20 sources)Essential hypertension; Translations: [Unspecified essential hypertension]Onset: 16-43-0505OzfgegvHddxw and electrolyte disorders (2 sources)Hyponatremia; Translations: [Hypo-osmolality and hyponatremia]Onset: 94-08-6042DvpogydcOxyvdijw; including migraine (4 sources)Headache; including migraine; Translations: [HEADACHE UNSPECIFIED] Onset: 44-53-9947Kgkoavhcveiwc and screening for infectious disease (8 sources)Patient encounter status; Translations: [Other specified vaccination] EpisodicLate effects of cerebrovascular disease (5 sources)Dysphagia following cerebral infarction; Translations: [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 EHR Cmte Occlusion or stenosis of precerebral arteries (8 sources)Right carotid artery stenosis; Translations: [Occlusion and stenosis of right carotid artery]Onset: 550167-34-4290SujakpfEunepksltrzqtp (1 source)Unspecified osteoarthritis, unspecified site; Translations: [UNSPECIFIED OSTEOARTHRITIS UNS SITE]Onset: 95-96-4291CmrndqtNanmr aftercare (8 sources)Drug therapy finding; Translations: [Long-term (current) use of other medications]EpisodicOther aftercare (1 source)[facility] (current) use of aspirin; Translations: [LONGTERM CURRENT USE OF ASPIRIN]Onset: 27-59-7391SalrrzxlJmclc aftercare (3 sources)Other shelter (current) drug therapy; Translations: [OTH TALLIER CURRENT DRUG THERAPY]Onset: 83-83-4610VptzhpybGsgko aftercare (16 sources)Taking high risk medication; Translations: [Other front desk host (current) drug therapy]Onset: 548132-77-5149JhqixmogVrdzn circulatory disease (1 source)Personal history of transient ischemic attack (TIA), and cerebral infarction without residual deficits; Translations: [PERS HX TIA AND CI NO RESID DEFICIT]Onset: 08-99-2862KbioywlbKqmnc hematologic conditions (1 source)Other specified abnormalities of plasma proteins; Translations: [OTH SPEC ABNORM PLASMA PROTEINS]Onset: 93-06-7192VgsqpuxpZkmex injuries and conditions due to external causes (1 source)Unspecified injury of head, initial encounter; Translations: [UNSPECIFIED INJURY HEAD INITIAL ENC]Onset: 15-81-7779NhmixpteKzfbp lower respiratory disease (1 source)Shortness of breathOnset: 65-63-8420AyvvjlmrSzqqs nutritional; endocrine; and metabolic disorders (1 source)Morbid (severe) obesity due to excess calories; Translations: [MORBID SEVERE OBES D/T EXCESS DELVIN]Onset: 50-00-6038SqbvonbYrkqv nutritional; endocrine; and metabolic disorders (1 source)Body mass index (BMI) 30.0-30.9, adult; Translations: [BODY MASS INDEX BMI 30.0-30.9 ADULT]Onset: 81-71-5228XlmutqqJvomf screening for suspected conditions (not mental disorders or infectious disease) (8 sources)Hormone level - finding; Translations: [Other specified abnormal findings of blood chemistry]Onset: 885155-52-3405XzyeiueePscmpiw on above: Problem List clean-up per request of Phys. EHR CmteOther skin disorders (4 sources)Asteatosis cutis; Translations: [Xerosis cutis]77-30-2671Spxrlpuk Otitis media and related conditions (2 sources)Otitis media; Translations: [Unspecified nonsuppurative otitis media, left ear]Onset: 70-82-9046MegtwjxsOijtiwtmki and visceral atherosclerosis (3 sources)Peripheral vascular disease, unspecified; Translations: [Peripheral vascular disease]Onset: 128665-22-8603KmmyfsiOkyojgw on above:Problem List clean-up per request of Phys. EHR CmteResidual codes; unclassified (1 source)Acquired absence of other specified parts of digestive tract; Translations: [ACQ ABSENCE OTH PART DIGESTV TRACT]Onset: 67-24-3031Fooinxok Residual codes; unclassified (4 sources)Body mass index 20-24 - normal; Translations: [Body mass index (BMI) 24.0-24.9, adult]Onset: 954121-98-7743NhivajylYhjyvuxe codes; unclassified (2 sources)Body mass index (BMI) 24.0-24.9, adult; Translations: [Body mass index (BMI) 24.0-24.9, adult]Onset: 37-72-9824VyoikraiVsiobralk and history of mental health and substance abuse codes (20 sources)Ex-smoker; Translations: [Personal history of tobacco use]Onset: 380885-46-6541XucgalbiHxbylnf on above:QUIT MAR 2019;Substance-related disorders (3 sources)Nicotine dependence, unspecified, uncomplicated; Translations: [Tobacco user]Onset: 456077-32-4734WxjucnxGpsactv (3 sources)Syncope and collapse; Translations: [Syncope]Onset: 04-23-2022 29-16-7856TnmznzexOgokyes on above:Problem List clean-up per request of Phys. EHR CmteTransient cerebral ischemia (10 sources)Transient cerebral ischemic attack, unspecified; Translations: [Transient cerebral ischemia]Onset: 22-28-0499PxvvzuxWhtdzyhwpiik (1 source)[facility] (current) use of oral hypoglycemic drugsOnset: 06-10-2018 Unclassified (1 source)CONTACT W/AND (SUSP) EXPOS COVID-19; Translations: [CONTACT W/AND (SUSP) EXPOS COVID-19]Onset: 95-81-9072Djhuvyajdkan (2 sources)Other persistent atrial fibrillation; Translations: [Other persistent atrial fibrillation]Onset: 01-29-2023 Past or Other Problems Problem ClassificationProblemDateDocumented DateEpisodic/ChronicAcute bronchitis (1 source)Acute bronchiolitis, unspecified; Translations: [ACUTE BRONCHIOLITIS UNSPECIFIED]Onset: 83-26-4842PkstzixqMxnfgbpf of upper limb (2 sources)Displaced fracture of proximal phalanx of left little finger, subsequent encounter for fracture with routine healing; Translations: [Displaced fracture of proximal phalanx of left little finger, initial encounter for closed fracture]Onset: 08-29-2021 Resolved: 53-75-2472CjohykchKdckpjcfskwa; infection of eye (except that caused by tuberculosis or sexually transmitteddisease) (1 source)Unspecified conjunctivitis; Translations: [UNSPECIFIED CONJUNCTIVITIS] Onset: 60-31-7166EdmbrzhcHzyu wounds of head; neck; and trunk (4 sources)Laceration without foreign body of left eyelid and periocular area, initial encounter; Translations: [LAC NO FB LT EYELID PERIOCULAR INIT]Onset: 58-90-0816PyltstmrTytsa aftercare (1 source)[facility] (current) use of oral hypoglycemic drugs; Translations: [TALLIER USE ORAL HYPOGLYCEMIC DX]Onset: 13-35-9570XgvjjrukDwsss connective tissue disease (2 sources)Pain in left handOnset: 08-29-2021 Resolved: 33-62-3446HceigxhzItqks injuries and conditions due to external causes (1 source)Unspecified foreign body in respiratory tract, part unspecified causing other injury, initial encounter; Translations: [UNS FB RESP TRACT UNS OTH INJ INIT]Onset: 15-30-7103MvllgdliPjmmj injuries and conditions due to external causes (1 source)Other specified injuries of head, initial encounter; Translations: [OTH SPEC INJURIES HEAD INITIAL ENC]Onset: 94-30-2494TxmiyrczZytef lower respiratory disease (1 source)Shortness of breath; Translations: [SHORTNESS OF BREATH]Onset: 97-93-8141SghscmovCfnsu nutritional; endocrine; and metabolic disorders (19 sources)Overweight in adulthood with body mass index of 25 or more but less than 30; Translations: [Overweight]Onset: 490253-03-9464YbswwfwsYnlxg nutritional; endocrine; and metabolic disorders (2 sources)Body mass index (BMI) 26.0-26.9, adult; Translations: [Body mass index (BMI) 26.0-26.9, adult]Onset: 27-99-8279QngqwespCrjbb nutritional; endocrine; and metabolic disorders (2 sources)Body mass index (BMI) 27.0-27.9, adult; Translations: [Body mass index (BMI) 27.0-27.9, adult]Onset: 95-18-7950UghggyqeKqhng upper respiratory disease (3 sources)Nasal congestion; Translations: [NASAL CONGESTION]Onset: 08-22-2021 EpisodicOther upper respiratory infections (1 source)Acute pharyngitis, unspecified; Translations: [ACUTE PHARYNGITIS UNSPECIFIED]Onset: 81-65-1235MujuufcqSwqjlfmwpfhp (7 sources)Onset: 01-29-2023 Resolved: Results Test NameValueInterpretationReference RangeFacilityABO/Rhon 02-20-7551AYQ/Rh PositiveInvalid Interpretation CodeMarietta Memorial HospitalComment on above: Performed By: #### [id number] #### [facility] [address], [place] [address]COR/Rh History Checkon 24-58-7479YMK/Rh History CheckPatient discharged priorHocking Valley Community HospitalComment on above:Performed By: #### [id number] #### [facility] [address], [place] [address]ZAOEkm 70-35-2776TBAI Gel InterpNegativeNoCity HospitalComment on above:Performed By: #### [id number] #### [facility] [address], [place] [address]CISgi 10-18-3589Iuvuj gap [Moles/Vol]10 mmol/LNormal6-16M[facility]etta Memorial HospitalComment on above:Performed By: #### [id number] #### [facility] [address], [place] [address]NQL/Creat Ratio9 No AyawlFde38-19DdlervMarietta Memorial Hospital Comment on above:Performed By: #### [id number] #### [facility] [address], [place] [address]Lbllguq [Mass/Vol]8.5 mg/dLLow8.9-11.1FOhio Valley HospitalComment on above:Performed By: #### [id number] #### [facility] [address], [place] [address]Sjpkgchx [Moles/Vol]100 mmol/WOmg439-087XhrhikMarietta Memorial HospitalComment on above:Performed By: #### [id number] #### [facility] [address], [place] [address]YN6 [Moles/Vol]29 mmol/DOwfmla23-68KvudafMarietta Memorial Hospital Comment on above:Performed By: #### [id number] #### [facility] [address], [place] [address]Vzfjedjpyf [Mass/Vol]1.6 mg/dLHigh0.5-1.3FOhio Valley HospitalComment on above:Performed By: #### [id number] #### [facility] [address], [place] [address]Swjbvyy [Mass/Vol]148 mg/mLEtieoq93-575PaayszMarietta Memorial HospitalComment on above:Performed By: #### [id number] #### [facility] [address], [place] [address]Nmcfhnkwz [Moles/Vol]4.6 mmol/LNormal3.5-5.3FOhio Valley HospitalComment on above:Performed By: #### [id number] #### [facility] [address], [place] [address]Qhunfj [Moles/Vol]134 mmol/VUfz837-133CevgbmMarietta Memorial HospitalComment on above:Performed By: #### [id number] #### [facility] [address], [place] [address]Rgdw nitrogen [Mass/Vol]15 mg/dLNormal5-21M[facility]etta Memorial HospitalComment on above:Performed By: #### [id number] #### [facility] [address] [place] [address]Hbsih Bank ID#on [id number]#[id number] Interpretation CodeMarietta Memorial HospitalComment on above:Performed By: #### [id number] #### [facility] [address] [place] [address]UQD w/ Auto Diffon 66-62-6840Oijsuwhw Absolute0.0 E9/LNormal 0.0-0.2FOhio Valley HospitalComment on above:Performed By: #### [id number] #### [facility] [address] [place] [address]Jecvknfvs/100 WBC (Bld)0.5 %Normal0.0-2.0Marietta Memorial HospitalComment on above:Performed By: #### [id number] #### [facility] [address] [place] [address]Lbv Absolute0.3 E9/LNormal0.0-0.5FOhio Valley Hospital Comment on above:Performed By: #### [id number] #### [facility] [address] [place] [address]Hryxusywvhu/100 WBC (Bld)3.1 %Normal0.0-8.0M[facility]etta Memorial HospitalComment on above:Performed By: #### [id number] #### [facility] [address] [place] [address]Howsapozqrx distribution width (RBC) [Ratio]17.6 %High10.9-14.2 [facility] Memorial HospitalComment on above:Performed By: #### [id number] #### [facility] [address] [place] [address]Fxqubenxug (Bld) [Volume fraction]31.4 %Low37.7-49.0M[facility]etta Memorial HospitalComment on above:Performed By: #### [id number] #### [facility] [address] [place] [address]Pinyrynijg (Bld) [Mass/Vol]11.0 g/dLLow13.5-17.5FOhio Valley HospitalComment on above:Performed By: #### [id number] #### [facility] [address] [place] [address]Aurpk Absolute0.8 E9/LLow1.0-4.0[facility] Comment on above:Performed By: #### [id number] #### [facility] [address] [place] [address]Hothzwxbetc/100 WBC (Bld)9.4 %Low14.0-50.0M[facility]etta Memorial HospitalComment on above:Performed By: #### [id number] #### [facility] [address] [place] [address]OJZ (RBC) [Entitic mass]34.1 mqWhaz83.0-34.0M[facility] Memorial HospitalComment on above:Performed By: #### [id number] #### [facility] [address] [place] [address]BJKU (RBC) [Mass/Vol]35.0 g/lOJcgnon89.4-36.0[facility] HospitalComment on above:Performed By: #### [id number] #### [facility] [address] [place] [address]SFC (RBC) [Entitic vol]97.5 hRBuvseu55.0-100.0M[facility] HospitalComment on above:Performed By: #### [id number] #### [facility] [address] [place] [address]Iyiu Absolute0.7 E9/LNormal0.2-1.0[facility] Comment on above:Performed By: #### [id number] #### [facility] [address] [place] [address]Juechnxwb/100 WBC (Bld)7.5 %Normal4.0-14.0M[facility] Memorial HospitalComment on above:Performed By: #### [id number] #### [facility] [address], [place] [address]Dgmbzx Absolute7.1 E9/LNormal2.0-7.5FOhio Valley Hospital Comment on above:Performed By: #### [id number] #### [facility] [address], [place] [address]Rycgzk Auto79.5 %High36.0-75.0[facility] Comment on above:Performed By: #### [id number] #### [facility] [address], [place] [address]Rzkjdvxv810.0 E9/YAtkvro516.0-500.0[facility] Comment on above:Performed By: #### [id number] #### [facility] [address], [place] [address]Wbrqgkjv mean volume (Bld) [Entitic vol]7.2 fLNormal6.4-10.8 [facility] Memorial HospitalComment on above:Performed By: #### [id number] #### [facility] [address], [place] [address]CWI8.2 E12/LLow4.3-5.9M[facility] Memorial HospitalComment on above:Performed By: #### [id number] #### [facility] [address] [place] [address]NIH6.9 E9/LNormal4.0-11.0M[facility] Memorial HospitalComment on above:Performed By: #### [id number] #### [facility] [address], [place] [address]FQ Abdomen/Pelvis w/ Contraston 63-87-7635JZ Abdomen/Pelvis w/ ContrastExam Date/Time: 01/12/2025 14:20 EDT [...] Taylor MD Transcribed by: MARLYS Technologist: [facility] Chest w/ Contraston 17-79-8535GU Chest w/ ContrastExam Date/Time: 01/12/2025 14:20 EDT [...] Bharat Taylor MD Transcribed by: MARLYS Technologist: LouiseMarietta Memorial HospitalCT Head or Brain w/o Contraston 28-79-0716NC Head or Brain w/o ContrastExam Date/Time: 01/12/2025 [...] Bharat Taylor MD Transcribed by: MARLYS Technologist: [facility] CenterCT Spine Cervical w/o Contraston 34-04-9972XV Spine Cervical w/o ContrastExam Date/Time: 01/12/2025 14:14 [...] Taylor MD Transcribed by: MARLYS Technologist: [facility] Clinical Summaryon [id number] Clinical SummaryED Clinical Summary [id number] ED Clinical Summary Person Information Name: SHAHRZAD EDGAR/New_Omar Age: 79 Years : 1945 Sex: Male Language: Lithuanian PCP: Zachariah Ochoa MD Marital Status: Visit [...] 01/12/2025 16:09:43 01/12/2025 16:09:43 01/12/2025 16:09:43 ADDRESS: [address] [place] [id number] PHYS DOC NOTES: MEDICAL INFORMATION: Prescriptions Given: PATIENT EDUCATION INFORMATION: Instructions: Rib Contusion; Cervical Strain and Sprain Rehab; Pulmonary Nodule; Acute Kidney Injury, Adult Follow up: With: Address: When: Travis Medellin [facility], [address] [place] [address] In 3 days 01/15/2025 Comments: Please call hematology oncology office for close outpatient follow-up regarding new onset left lungmass as discussed. Continue to monitor symptoms. Return to ED if symptoms worsen or new symptoms arise. With: Address: When: Zachariah Ochoa [facility] [facility], [place] [address] [place] [address] Business (1) In 3 days 01/15/2025 Comments: [...] medical advice; Mass of left lung; Neck strainHolmes County Joel [facility]omerene Memorial Hospital CenterED Patient Summaryon 17-38-0424RE Patient SummaryED Patient Summary [place] [id number] Patient Discharge Instructions Person Information Name: SHAHRZAD EDGAR Age: 79 Years Arrival Date: 01/12/2025 13:16:51 Discharge Diagnosis: KYLE (acute kidney injury); Accidental fall; Contusion of rib on left side; Left against medical advice; Mass of left lung; Neck strain Primary Care Physician: Zachariah Ochoa MD Provider Information Primary Provider: Faustino Wiley MD Advanced Respiratory Supervisor:Darryn GAGE, Gagan Quinn The exam and treatment you received in the Emergency Department were for an urgent problem and are not intended as complete care. It is important that you follow up with a doctor, nurse practitioner,or physician???s classroom assistant for ongoing care. If your symptoms become worse or you do not improve asexpected and you are unable to reach your usual health care provider, you should return to the Emergency Department. We are available 24 hours a day. SHAHRZAD EDGAR has been given the following list of patient education materials, prescriptions and follow-up instructions: Follow-up Instructions: With: Address: When: Travis Medellin [facility], [address] [place] [address] [place] [address] In 3 days 01/15/2025 Comments: Please call hematology oncology office for close outpatient follow-up regarding new onset left lungmass as discussed. Continue to monitor symptoms. Return to ED if symptoms worsen or new symptoms arise. With: Address: When: Zachariah Ochoa [address] [facility], [place] [address] [place] [address] [facility] (1) In 3 days 01/15/2025 Comments: [...] opioids can be used to help relieve qfgmlprd-xp-jyydjm pain and are often prescribed following a [...] don???t involve prescription opioids. (more content not included)...NormalMarietta Memorial HospitalEthanolon 77-76-1265Kwkwsbe Lvl<10Normal<=11[facility] HospitalComment on above: Performed By: #### [id number] #### [facility] [address] [place], [place] [address]Qng [facility] Panelon 18-33-5009Rcouvut [Mass/Vol]3.7 g/dLNormal 3.3-5.0[facility] HospitalComment on above:Performed By: #### [id number] #### [facility] [address] [place], [place] [address]Ngxfjut/Globulin [Mass ratio]1.1 {ratio}Normal1.1-2.2FOhio Valley HospitalComment on above:Performed By: #### [id number] #### [facility] [address] [place], [place] [address]Ncl Kvgx745 Int._Unit/TMgel53-95QmhdfrMarietta Memorial Hospital Comment on above:Performed By: #### [id number] #### [facility] [address] [place], [place] [address]VDF61 Int._Unit/LNormal6-46[facility] HospitalComment on above:Performed By: #### [id number] #### [facility] [address], [place] [address]BWG71 Int._Unit/LNormal5-43[facility] HospitalComment on above:Performed By: #### [id number] #### [facility] [address], [place] [address]Cwst Direct0.1 mg/dLNormal0.0-0.4FOhio Valley Hospital Comment on above:Performed By: #### [id number] #### [facility] [address], [place] [address]Qlak Indirect0.8 mg/dLNormal0.1-0.9[facility] Comment on above:Performed By: #### [id number] #### [facility] [address] [place], [place] [address]Oynj Total0.9 mg/dLNormal0.0-1.1FOhio Valley Hospital Comment on above:Performed By: #### [id number] #### [facility] [address], [place] [address]Yomcvfxw (S) [Mass/Vol]3.3 g/dLNormal1.4-4.0[facility] Memorial HospitalComment on above:Performed By: #### [id number] #### [facility] [address], [place] [address]Hljkigj [Mass/Vol]7.0 g/dLNormal6.0-7.8[facility] HospitalComment on above:Performed By: #### [id number] #### [facility] [address], [place] [address]Yumokz Acidon 01-39-0251Nmgfjc Acid Lvl1.0 mmol/LNormal0.5-2.2 [facility] HospitalComment on above:Performed By: #### [id number] #### [facility] [address] [place] [address]Pqsffj Levelon 16-82-8058Uughph Lvl22 unit/PAdxewp39-99IdwilzMarietta Memorial HospitalComment on above:Performed By: #### [id number] #### [facility] [address] [place] [address]MD & PTTon 31-61-7087GZR Coag (PPP) [Relative time]1.14 {INR} Invalid Interpretation CodeMarietta Memorial HospitalComment on above:Result Comment: INR results are specifically intended to assess patients stabilized on long-term Anticoagulation therapy suggested INR???s ???Less Intensive Anticoagulation??? 2.0 ??? 3.0 Conventional Range 3.0 ??? 4.5Performed By: #### [id number] #### [facility] [address], [place] [address]IB08.8 second(s)High9.4-12.5[facility] [...] the same coagulation reagent and instrumentation as [facility]. Currently there are no coagulation studies available worldwide for children to 14 days, andno normal ranges.Performed By: #### [id number] #### [facility] [address], [place] [address]LGC26.0 second(s)High25.1-36.5[facility] [...] the same coagulation reagent and instrumentation as [facility]. Currently there are no coagulation studies available worldwide for children to 14 days, andno normal ranges. Heparin therapeutic range (represented by Anti-Factor Xa activity of 0.2 - 0.4 U/mL) corresponds to PTT of 56.6 - 109.0 sec.Performed By: #### [id number] #### [facility] [address] [place], [place] [address]Csz-Wrragee Noteon 89-20-0940Vrj-Arrival NotePre-Arrival Note Pre-Arrival Summary Name: , CItizens Current Date: 01/12/2025 13:16:55 EDT Gender: Male Date of : Age: 79 Pre-Arrival Type: EMS ETA: 01/12/2025 13:31:00 EDT Primary Care Physician: Presenting Problem: fall; left shoulder pain Pre-Arrival User: Cristian MARTINEZ, Zaynab Dee Referring Source: Location: CT Completion Date/Time: 01/12/2025 13:02:00 [facility] Emergency Department Pre-Hospital Report Form Vital Signs: Pre-Hospital Report: fall; +hit head, -loc, -thinners. +Cp. left shoulder pain. deformity 2 ribs onleft side Treatment in Route: Response to Treatment: Misc. Issues:NormalMarietta Memorial HospitalTroponinon 29-86-2802Mulmxkuu HS 5.10 pg/mLLow15.90-38.40[facility] HospitalComment on above:Result Comment: The 95% CI (Confidence Interval) PPV (Positive Predictive Value) for myocardial infarction in females is 38 pg/mL, in males 51 pg/mL. The results should be used in conjunction with clinical conditions of myocardial infarction. (Access High Sensitivity Troponin I Instructions For Use, Vipin Bahman, October 2017)Performed By: #### [id number] #### [facility] [address] [place], [place] [address]GP Chest Single Viewon 20-10-9466IK Chest Single ViewExam Date/Time: 01/12/2025 13:51 EDT [...] into left upper lobe. Technical Comments: geraldine Faiban in mGy = na DAP = na Ordering Provider: Gagan Cates FINAL REPORT Dictated: 01/12/2025 2:07 pm Will Matson MD Signed (Electronic Signature): 01/12/2025 2:07 pm Signed by: Will Matson MD Transcribed by: MARLYS Technologist: ZAYDAUniversity Hospitals Geauga Medical CenterXR Shoulder Complete Lefton 23-51-8987FT Shoulder Complete LeftExam Date/Time: 01/12/2025 13:52 EDT [...] Will Matson MD Transcribed by: MARLYS Technologist: SALVADORHocking Valley Community HospitaleGFRon 97-88-0329aERU45 mL/min/1.73 m2Low>=59M[facility] Memorial HospitalComment on above:Performed By: #### [id number] #### [facility] [address] [place] [id number] Cultureon 34-52-5879Zxuofzgn identified Cx Nom (U)No Growth 2 Days PERFORMED BY: [place] [address] PATHOLOGIST APPRENTICESHIP TRAINING REPRESENTATIVE MAYRA RANGEL M.D.[facility] ER Physician GroupComment on above: Performed By: #### CUU #### [place] [id number] USAECG [address] [place] 74-69-1626Ynpfc rhythm with occasional PACs QTc Miri is [address] [facility] Work Phone: ecg [address] [place] 32-64-3784Rotunh sinus rhythm with prolonged QTc interval of 517 [facility] Work Phone: ecg [address] [place] 39-37-0823Kxtypu sinus rhythm with 1 PVC and QTc interval is borderline prolonged at 500 malOhio[facility] Work Phone: ecg [address] [place] 46-22-5859Ponajo sinus rhythm with a QTc interval of 495 [facility] Work Phone: ecg [address] [place] 28-77-6119Ntlhhn fibrillation with nonspecific ST-T changesCPTwin City Hospital Work Phone: ecg [address] [place] 13-04-5005Cmowvi sinus rhythm with a QTc interval of 481 [facility] Work Phone: Tobacco Screening.on 29-80-0793Pgxuo depression screening assessmentNoSkagit Valley Hospital [employer] Work Phone: Fall risk assessmentb) One or more falls in the last yearSkagit Valley Hospital [employer] Work Phone: Tobacco use status CPHSb) NoMLourdes Medical Center P-Commercey [employer] Work Phone: Office Visit (Cardiology)on 59-58-0538Bznnwd-up visit Diagnoses/Problems Assessed Persistent atrial fibrillation (427.31) [...] try to retrieve retrieve his record from [place] Surgical History Problems History of Back surgery [...] Recorded: 06Jun2022 09:22AM Heart Rate80, L Radial Lndomzet677, LUE, Sitting Puywenfdg56, LUE, Sitting Height6 ft 1 in Gxdpmb501 lb BMI Ayuqskfpss42.84 kg/m2 BSA Calculated2.2 Tobacco Useb) No Falls [...] (more content not included)...NormalUH Touchworks Tobacco Screening.on 38-31-0373Mfze risk assessmenta) No falls within the last yearSkagit Valley Hospital Wugly 250 DO Work Phone: Tobacco use status CPHSb) [facility] earthmine 250 DO Work Phone: Office Visit (Cardiology)on 02-10-4317Mpwjsj-up visit Diagnoses/Problems Assessed Persistent atrial fibrillation (427.31) [...] Weight Tips; Status:Complete - Retrospective Authorization; Done: [id number] Some eating tips that can help you lose weight.; Status:Complete - Retrospective Authorization; Done: 05Jun2022 Persistent atrial fibrillation IO EKG Electrocardiogram- 12 Lead; Status:Complete; Done: [id number] SocHx: Former smoker Tobacco Use Screening; Status:Complete; Done: [id number] Patient Instructions Please bring all medicines, vitamins, and herbal supplements with you when you come to the office. Prescriptions will not be filled unless you are compliant with your follow up appointments or have a follow up appointment scheduled as per instruction of your physician. Refills should be requested at the time of your visit. Fall prevention education given Carmudi Device discuss with patient Patient to call with correct medication list Retrieve records from [place] Will come back tomorrow with medication bottles [...] reports he was in the hospital in [place] in [place] after a stroke. Hedoes not know if [...] 4. I to retrieve his record from [place] 5. I advised the patient TO bring [...] (V15.82 (more content not included)...NormalUH TouchworksTobacco Screening.on 31-70-7451Nlncx depression screening assessmentNoSkagit Valley Hospital Heart-[employer] 250 DO Work Phone: Fall risk assessmentb) One or more falls in the last yearSkagit Valley Hospital Heart-[employer] 250 DO Work Phone: Tobacco use status CPHSb) NoMLourdes Medical Center Heart- Rosita 250 DO Work Phone: CBC AUTO DIFFon 80-22-2200TNTU #0.0 103/ulNormal 0.0-0.1The Berger HospitalComment on above:Performed By: #### CBC ####[facility] [address] [place], [place] [address]Dr.Yilan Pugh Basophils/100 WBC (Bld)0.5 %Normal0.2-2.0The [facility] HospitalComment on above: Performed By: #### CBC ####[facility] Z[address] [place], [place] [address]Dr.Yilan ChangEO #0.4 103/ulNormal0.0-0.7The [facility] HospitalComment on above:Performed By: #### CBC ####[facility] [address] [place], [place] [address]Dr.Yilan ChangEosinophils/100 WBC (Bld)4.7 %Normal0.9-7.0The [facility] HospitalComment on above:Performed By: #### CBC ####[facility] Kix[address] [place], [place] [address]Dr.Yilan ChangErythrocyte distribution width (RBC) [Ratio]13.7 %Normal 11.0-15.0The [facility] HospitalComment on above:Performed By: #### CBC ####[facility] Z[address]zoipt[address] [place], [place] [address]Dr. Yilan ChangHematocrit (Bld) [Volume fraction]40.5 %Critically low42.0-54.0The [facility] HospitalComment on above:Performed By: #### CBC ####[facility] [address] [place] [address]Dr.Shondapreston KeatonHemoglobin (Bld) [Mass/Vol]13.5 g/dLCritically low14.0-18.0The [facility] HospitalComment on above:Performed By: #### CBC ####[facility] Uhsnv[address] [place], [place] [address]Dr.Shondapreston ChangIG #0.03 10e3/ulNormal0.00-0.03The [facility] HospitalComment on above:Performed By: #### CBC ####[facility] Yvtclcyzhe[address] [place], [place] [address]Dr.Sea ChangIG %0.4 %Normal 0.0-0.5The [facility] HospitalComment on above:Performed By: #### CBC ####[facility] Hom[address] [place], [place] [address]Dr.Sea PughLYMPH #2.0 103/ulNormal1.2-3.8The [facility] HospitalComment on above:Performed By: #### CBC ####[facility] J[address] [place], [place] [address]Dr.Shondapreston PughLymphocytes/100 WBC (Bld)25.4 %Mutwno57.5-60.0The [facility] HospitalComment on above:Performed By: #### CBC ####[facility] Inhbpf[address] [place], [place] [address]Dr.Sea PughMANUAL DIFF REQ NONormalThe Berger HospitalComment on above:Performed By: #### CBC ####[facility] Ohwvgirmyy021059 [address] [place], [place] [address]Dr. Sea PughH (RBC) [Entitic mass]29.6 weHdyjdk19.9-34.0[facility] Comment on above:Performed By: #### CBC ####[facility] [address] [place], [place] [address]Dr.Sea PughMCHC (RBC) [Mass/Vol]33.3 g/dL Srroce33.9-35.2The [facility] HospitalComment on above:Performed By: #### CBC ####[facility] [address] [place] [address]Dr. Sea PughMCV (RBC) [Entitic vol]88.8 xFPwqfre89.0-94.0[facility] Comment on above:Performed By: #### CBC ####[facility] Ruv[address]cd[address] [place], [place] [address]Dr.Sea PughMONO #0.8 103/ulNormal0.3-0.8 The [facility] HospitalComment on above:Performed By: #### CBC ####[facility] Pgcstvukje[address] [place], [place] [address]Dr.Sea Pugh Monocytes/100 WBC (Bld)10.4 %Normal1.7-12.0The [facility] HospitalComment on above:Performed By: #### CBC ####[facility] Sm[address]ws[address] [place], [place] [address]Dr.Sea KeatonNEUT #4.6 103/ulNormal1.4-6.5The [facility] HospitalComment on above:Performed By: #### CBC ####[facility] Rzbaezmecx[address] [place], [place] [address]Dr.Sea PughNeutrophils/100 WBC (Bld)58.6 %Yxjdkn98.0-75.0The [facility] HospitalComment on above:Performed By: #### CBC ####[facility] Mzxov[address]lexe[address] [place], [place] [address]Dr.Sea KeatonPlatelet mean volume (Bld) [Entitic vol]9.8 fLNormal9.5-13.5 The [facility] HospitalComment on above:Performed By: #### CBC ####[facility] Vijjwijqgn[address] [place], [place] [address]Dr.Shondapreston PughQwxqsLGI415 103/hrVzijak098-837Jhh [facility] HospitalComment on above:Performed By: #### CBC ####[facility] Fpydwuraxe[address] [place], [place] [address]Dr. Sea PughRBC4.56 106/ulCritically low4.70-6.10The [facility] HospitalComment on above:Performed By: #### CBC ####[facility] [address] [place] [address]Dr.Yilan PughWBC7.8 103/ulNormal4.0-11.0The [facility] HospitalComment on above:Performed By: #### CBC ####[facility] [address] [place] [address]Dr.Yilan CampuzanoC AUTO DIFFon [id number] #0.1 103/ulNormal0.0-0.1The [facility] HospitalComment on above: Performed By: #### HSTROPN, CMP, CRP #### [facility] [address] [address] [address] Sea PughBasophils/100 WBC (Bld)0.7 %Normal0.2-2.0[facility] Comment on above:Performed By: #### HSTROPN, CMP, CRP #### [facility] [address] [address] [address] Sea Torre #0.3 103/ulNormal0.0-0.7The [facility] HospitalComment on above: Performed By: #### HSTROPN, CMP, CRP #### [facility] [address] [address] [address] Sea Fordosinophils/100 WBC (Bld)4.9 %Normal0.9-7.0[facility] Comment on above:Performed By: #### HSTROPN, CMP, CRP #### [facility] [address] [address] [address] Sea Fordrythrocyte distribution width (RBC) [Ratio]14.0 %Clcryy73.0-15.0 The [facility] Hospitalment on above:Performed By: #### HSTROPN, CMP, CRP #### [facility] [address] [address] [address] Sea PughHematocrit (Bld) [Volume fraction]38.5 %Critically low42.0-54.0 The López HospitalComment on above:Performed By: #### HSTROPN, CMP, CRP #### [facility] [address] [address] [address] Sea PughHemoglobin (Bld) [Mass/Vol]13.3 g/dLCritically low14.0-18.0The [facility] HospitalComment on above:Performed By: #### HSTROPN, CMP, CRP #### [facility] [address] [place] [address] Dr. Sea Anguiano #0.02 10e3/ulNormal0.00-0.03The [facility] Hospitalment on above:Performed By: #### HSTROPN, CMP, CRP #### [facility] [address] [place] [address] Dr. Sea Anguiano %0.3 %Normal0.0-0.5[facility] on above: Performed By: #### HSTROPN, CMP, CRP #### [facility] [address] [place] [address] Dr. Sea Galeano #1.5 103/ulNormal1.2-3.8The [facility] Hospitalment on above:Performed By: #### HSTROPN, CMP, CRP #### [facility] [address] [place] [address] Dr. Sea Princehocytes/100 WBC (Bld)22.7 %Sorzza54.5-60.0[facility] on above:Performed By: #### HSTROPN, CMP, CRP #### [facility] [address] [place] [address] Dr. Sea SoniUAL DIFF REQNONormalThe [facility] HospitalComment on above: Performed By: #### HSTROPN, CMP, CRP #### [facility] [address] [place] [address] Dr. Sea Figueroa (RBC) [Entitic mass]29.4 nzRublul22.9-34.0The [facility] HospitalComment on above:Performed By: #### HSTROPN, CMP, CRP #### [facility] [address] [place] [address] Dr. Sea Steele (RBC) [Mass/Vol]34.5 g/dHKrqpdr11.9-35.2The [facility] HospitalComment on above:Performed By: #### HSTROPN, CMP, CRP #### [facility] [address] [address] [address] Sea Steele (RBC) [Entitic vol]85.0 nRVdvklv59.0-94.0The [facility] HospitalComment on above:Performed By: #### HSTROPN, CMP, CRP #### [facility] [address] [place] [address] Dr. Sea Rain #0.7 103/ulNormal0.3-0.8The [facility] HospitalComment on above:Performed By: #### HSTROPN, CMP, CRP #### [facility] [address] [place] [address] Dr. Sea Bansalocytes/100 WBC (Bld)10.2 %Normal1.7-12.0[facility] Comment on above:Performed By: #### HSTROPN, CMP, CRP #### [facility] [address] [place] [address] Dr. Sea Zapata #4.1 103/ulNormal1.4-6.5The [facility] HospitalComment on above:Performed By: #### HSTROPN, CMP, CRP #### [facility] [address] [place] [address] Dr. Sea Díazutrophils/100 WBC (Bld)61.2 %Dgtymr34.0-75.0The [facility] HospitalComment on above:Performed By: #### HSTROPN, CMP, CRP #### [facility] [address] [place] [address] Dr. Sea Caldwell mean volume (Bld) [Entitic vol]9.1 fLCritically low 9.5-13.5The [facility] HospitalComment on above:Performed By: #### HSTROPN, CMP, CRP #### [facility] [address] [place], [place] [address] Dr. Sea PughPLT216 103/vqEmfypj439-031Auu [facility] HospitalComment on above: Performed By: #### HSTROPN, CMP, CRP #### [facility] [address] [address] [address] Sea PughRBC4.53 106/ulCritically low4.70-6.10The [facility] HospitalComment on above:Performed By: #### HSTROPN, CMP, CRP #### [facility] [address] [address] [address] Sea PughWBC6.8 103/ulNormal4.0-11.0The [facility] HospitalComment on above: Performed By: #### HSTROPN, CMP, CRP #### [facility] [address] [place] [address] Dr. Osei ChangECHOCARDIO M/2D COMPLETEon [id number] M/2D COMPLETE Patient: SHAHRZAD EDGAR Exam Date: 04/21/2022 : 1945 Gender:M Ordering : SHAIKH Marya CAMPOS . Admission #: [id number] Family : Order #: [id number] CLICK HERE TO VIEW EXAM ECHOCARDIOGRAM REPORT PROCEDURE: CARDIO PULMONARY ECHOCARDIO M/2D COMP INDICATIONS: Elevated troponin, TIA, HX:[place] COMPARISON: None. DESCRIPTION: COMPLETE ECHOCARDIOGRAM Real-time transthoracic [...] 14:57[facility] CenterMRI BRAIN WO CONon [id number] BRAIN WO CONEXAMINATION: MRI BRAIN WO CON, [...] 14:41[facility] CenterPOINT OF CARE GLUCOSEon 89-37-3279Rpcvleh [Mass/Vol]180 mg/dL Critically ysaw25-826WkyCleveland Clinic FoundationComment on above:Performed By: #### POCGLUC ####[facility] [address] [address]Dr. Sea PughPROF CHEM 8 (BAS METB)on 40-49-9724Fwqic gap [Moles/Vol]13.5 mmol/LNormalCleveland Clinic FoundationComment on above:Performed By: #### DDIM #### [facility] [address] [place], [place] [address] Dr. Sea PughCalcium [Mass/Vol]8.7 mg/dLNormal8.5-10.1[facility] Comment on above:Performed By: #### DDIM #### [facility] [address] [address] [address] Sea PughChloride [Moles/Vol]100 mmol/ECoubhe40-383Qgh [facility] Comment on above:Performed By: #### DDIM #### [facility] [address] [address] [address] Sea PughCO2 [Moles/Vol]27.2 mmol/TQjesfr93.0-32.0[facility] Comment on above:Performed By: #### DDIM #### [facility] [address] [place] [address] Dr. Sea PughCreatinine [Mass/Vol]1.27 mg/dLNormal0.70-1.30The [facility] HospitalComment on above:Performed By: #### DDIM #### [facility] [address] [place] [address] Dr. Osei ChangEGFR-AF MOSOTHO>60Normal>=60The [facility] HospitalComment on above:Performed By: #### DDIM #### [facility] [address] [place] [address] Dr. Sea FordGFR-NON AF HIDRJDBY27 mL/min/1.33l7Zfieihahfa low>=60The [facility] HospitalComment on above:Performed By: #### DDIM #### [facility] [address] [address] [address] Sea PughGlucose [Mass/Vol]134 mg/dLCritically ckwa68-652Zxi [facility] HospitalComment on above:Performed By: #### DDIM #### [facility] [address] [place] [address] Dr. Sea PughPotassium [Moles/Vol]3.7 mmol/LNormal3.5-5.1[facility] Comment on above:Performed By: #### DDIM #### [facility] [address] [place] [address] Dr. Sea Reneeum [Moles/Vol]137 mmol/GAdsisj230-537Epv [facility] Comment on above:Performed By: #### DDIM #### [facility] [address] [place] [address] Dr. Sea Starr nitrogen [Mass/Vol]14.0 mg/dLNormal7.0-18.0The [facility] HospitalComment on above:Performed By: #### DDIM #### [facility] [address] [place] [address] Dr. Sea Starr nitrogen/Creatinine [Mass ratio]11.0 mg/mgNormalThe [facility] HospitalComment on above:Performed By: #### DDIM #### [facility] [address] [place] [address] Dr. Sea Boles SRINIVASAN 3-6on 84-59-4598EL [Catalytic activity/Vol]282 U/L Rcztre16-183Ueq [facility] HospitalComment on above:Performed By: #### HSTROPN, CMP, CRP #### [facility] [address] [place] [address] Dr. Sea Dailey.MB [Mass/Vol]4.34 ng/mLCritically high<=3.60[facility] on above:Performed By: #### HSTROPN, CMP, CRP #### [facility] [address] [place] [address] Dr. Sea PughHSTROP113.2 pg/mLCritically high4.0-76.1[facility] Comment on above:Result Comment: CUT-OFF POINTS HAVE BEEN ESTABLISHED BASED ON THE FOURTH UNIVERSAL DEFINITIONS OF MYOCARDIAL INFARCTION. THE UPPER REFERENCE LIMIT (URL) OF TROPONIN, DEFINED THE 99TH PERCENTILE OF cTnI DISTRIBUTION IN A REFERENCE POPULATION, HAS BEEN CONFIRMED THE DECISION THRESHOLD FOR [place] DIAGNOSIS.Performed By: #### HSTROPN, CMP, CRP #### [facility] [address] [place] [address] Dr. Sea Rachel AUTO DIFFon 61-10-1923XCVJ #0.0 103/ulNormal0.0-0.1The López HospitalComment on above:Performed By: #### HSTROPN, CMP, CRP #### [facility] [address] [address] [address] Sea PughBasophils/100 WBC (Bld)0.5 %Normal0.2-2.0[facility] Comment on above:Performed By: #### HSTROPN, CMP, CRP #### [facility] [address] [place] [address] Dr. Sea Torre #0.1 103/ulNormal0.0-0.7The [facility] HospitalComment on above: Performed By: #### HSTROPN, CMP, CRP #### [facility] [address] [place] [address] Dr. Sea Fordosinophils/100 WBC (Bld)0.6 %Critically low0.9-7.0The [facility] Hospitalment on above:Performed By: #### HSTROPN, CMP, CRP #### [facility] [address] [place] [address] Dr. Sea Fordrythrocyte distribution width (RBC) [Ratio]13.6 %Pfnmmr60.0-15.0 The [facility] Hospitalment on above:Performed By: #### HSTROPN, CMP, CRP #### [facility] [address] [place] [address] Dr. Sea PughHematocrit (Bld) [Volume fraction]37.2 %Critically low42.0-54.0 The [facility] Hospitalment on above:Performed By: #### HSTROPN, CMP, CRP #### [facility] [address] [place] [address] Dr. Sea PughHemoglobin (Bld) [Mass/Vol]13.3 g/dLCritically low14.0-18.0The [facility] Hospitalment on above:Performed By: #### HSTROPN, CMP, CRP #### [facility] [address] [place] [address] Dr. Sea PughIG #0.04 10e3/ulCritically high0.00-0.03[facility] Comment on above:Performed By: #### HSTROPN, CMP, CRP #### [facility] [address] [place] [address] Dr. Sea Anguiano %0.5 %Normal0.0-0.5The [facility] HospitalComment on above: Performed By: #### HSTROPN, CMP, CRP #### [facility] [address] [place] [address] Dr. Sea Galeano #1.2 103/ulNormal1.2-3.8The [facility] HospitalComment on above:Performed By: #### HSTROPN, CMP, CRP #### [facility] [address] [place] [address] Dr. Sea Princehocytes/100 WBC (Bld)14.7 %Critically low20.5-60.0The [facility] HospitalComment on above:Performed By: #### HSTROPN, CMP, CRP #### [facility] [address] [place] [address] Dr. Sea SoniUAL DIFF REQNONormalThe [facility] HospitalComment on above: Performed By: #### HSTROPN, CMP, CRP #### [facility] [address] [place] [address] Dr. Sea Steele (RBC) [Entitic mass]29.6 faBsrlbx67.9-34.0The [facility] HospitalComment on above:Performed By: #### HSTROPN, CMP, CRP #### [facility] [address] [place] [address] Dr. Sea Steele (RBC) [Mass/Vol]35.8 g/dLCritically high29.9-35.2The [facility] HospitalComment on above:Performed By: #### HSTROPN, CMP, CRP #### [facility] [address] [place] [address] Dr. Sea Steele (RBC) [Entitic vol]82.9 dFLxjnir11.0-94.0The [facility] HospitalComment on above:Performed By: #### HSTROPN, CMP, CRP #### [facility] [address] [address] [address] Sea Rain #0.7 103/ulNormal0.3-0.8The [facility] HospitalComment on above:Performed By: #### HSTROPN, CMP, CRP #### [facility] [address] [address] [address] Sea Bansalocytes/100 WBC (Bld)9.4 %Normal1.7-12.0[facility] Comment on above:Performed By: #### HSTROPN, CMP, CRP #### [facility] [address] [place] [address] Dr. Sea Zapata #5.9 103/ulNormal1.4-6.5The [facility] HospitalComment on above:Performed By: #### HSTROPN, CMP, CRP #### [facility] [address] [address] [address] Sea Díazutrophils/100 WBC (Bld)74.3 %Bazquf65.0-75.0The [facility] HospitalComment on above:Performed By: #### HSTROPN, CMP, CRP #### [facility] [address] [place] [address] Dr. Sea Caldwell mean volume (Bld) [Entitic vol]9.4 fLCritically low 9.5-13.5The [facility] Hospitalment on above:Performed By: #### HSTROPN, CMP, CRP #### [facility] [address] [place] [address] Dr. Sea PughPLT215 103/voEcwejf325-613Udd [facility] HospitalComment on above: Performed By: #### HSTROPN, CMP, CRP #### [facility] [address] [place] [address] Dr. Sea PughRBC4.49 106/ulCritically low4.70-6.10The [facility] HospitalComment on above:Performed By: #### HSTROPN, CMP, CRP #### [facility] [address] [address] [address] Sea PughWBC7.9 103/ulNormal4.0-11.0[facility] Clinic FoundationComment on above: Performed By: #### HSTROPN, CMP, CRP #### [facility] [address] [place] [address] Dr. Sea PughCovid-19 PCR ([facility])on 61-54-6352YQWR-CoV-2 (COVID-19) RNA [place]+probe Ql (Unsp spec)Not detectedNormalNOT DETECTEDThe [facility] Comment on above:Result Comment: When diagnostic [...] for this test is supported by the [employer] of Health and Human Service's declaration [...] longer be used).Performed By: #### DDIM #### [facility] [address] [place] [address] Dr. Sea PughPOINT OF CARE GLUCOSEon 25-25-2936Czlvehp [Mass/Vol]134 mg/dL Critically kmmq92-266Iga [facility] HospitalComment on above:Performed By: #### DDIM #### [facility] [address] [place] [address] Dr. Sea PughPROF CHEM 8 (BAS METB)on 29-38-4619Vebme gap [Moles/Vol]15.3 mmol/LNormalCleveland Clinic FoundationComment on above:Performed By: #### BMP ####[facility] [address] [place], [place] [address]Dr. Yilan ChangCalcium [Mass/Vol]8.9 mg/dLNormal8.5-10.1The [facility] HospitalComment on above:Performed By: #### BMP ####[facility] [address]jte[address] [place], [place] [address]Dr.Yilan ChangChloride [Moles/Vol]101 mmol/LNormal 98-107The [facility] HospitalComment on above:Performed By: #### BMP ####[facility] [address]rgs[address] [place], [place] [address]Dr.Yilan ChangCO2 [Moles/Vol]25.5 mmol/DDyrwmu06.0-32.0The [facility] HospitalComment on above: Performed By: #### BMP ####[facility] [address] [place], [place] [address]Dr.Yilan ChangCreatinine [Mass/Vol]1.09 mg/dLNormal 0.70-1.30The [facility] on above:Performed By: #### BMP ####[facility] [address] [place], [place] [address]Dr. Yilan ChangEGFR-AF MOSOTHO>60Normal>=60The [facility] HospitalComformerly [facility] on above: Performed By: #### BMP ####[facility] [address] [place], [place] [address]Dr.Yilan ChangEGFR-NON AF MOSOTHO>60Normal>=60The [facility] HospitalComment on above:Performed By: #### BMP ####[facility] [address] [place], [place] [address]Dr.Yilan ChangGlucose [Mass/Vol]150 mg/dLCritically vqzu71-862Ofv [facility] HospitalComment on above: Performed By: #### BMP ####[facility] [address] [place], [place] [address]Dr.Yilan ChangPotassium [Moles/Vol]3.8 mmol/LNormal 3.5-5.1The [facility] HospitalComment on above:Performed By: #### BMP ####[facility] [address] [place], [place] [address]Ul.Sea Pugh Sodium [Moles/Vol]138 mmol/FEoneah926-980Zde [facility] Hospitalment on above: Performed By: #### BMP ####[facility] [address] [place], [place] [address]Ef.Shondapreston ChangUrea nitrogen [Mass/Vol]11.0 mg/dLNormal 7.0-18.0The [facility] HospitalComment on above:Performed By: #### BMP ####[facility] [address] [place], [place] [address]Qg. Sea ChangUrea nitrogen/Creatinine [Mass ratio]10.1 mg/mgNormalThe [facility] HospitalComment on above:Performed By: #### BMP ####[facility] [address] [address]DrPrem Burnette, HIGH SENSITIVITYon 49-31-1135TPYBCJ486.3 pg/mLCritically high4.0-76.1The [facility] on above:Result Comment: CUT-OFF POINTS HAVE BEEN ESTABLISHED BASED ON THE FOURTH UNIVERSAL DEFINITIONS OF MYOCARDIAL INFARCTION. THE UPPER REFERENCE LIMIT (URL) OF TROPONIN, DEFINED THE 99TH PERCENTILE OF cTnI DISTRIBUTION IN A REFERENCE POPULATION, HAS BEEN CONFIRMED THE DECISION THRESHOLD FOR [place] DIAGNOSIS.Performed By: #### DDIM #### [facility] [address] [address] [address] Sea PughHSTROP141.1 pg/mLCritically high4.0-76.1[facility] Comment on above:Result Comment: CUT-OFF POINTS HAVE BEEN ESTABLISHED BASED ON THE FOURTH UNIVERSAL DEFINITIONS OF MYOCARDIAL INFARCTION. THE UPPER REFERENCE LIMIT (URL) OF TROPONIN, DEFINED THE 99TH PERCENTILE OF cTnI DISTRIBUTION IN A REFERENCE POPULATION, HAS BEEN CONFIRMED THE DECISION THRESHOLD FOR [place] DIAGNOSIS.Performed By: #### HSTROPN #### [facility] [address] [place], [place] [address] Dr. Sea Boles SRINIVASAN ADMITon 58-95-5192EU [Catalytic activity/Vol]266 U/L Qlupnh00-457Kuv [facility] HospitalComment on above:Performed By: #### BMP, CMADM ####[facility] [address] [address]DrMook Dailey.MB [Mass/Vol]4.18 ng/mLCritically high<=3.60[facility] Comment on above:Performed By: #### BMP, CMADM ####[facility] [address] [place] [address]DrMook PughHSTROP32.5 pg/mLNormal4.0-76.1The [facility] Hospitalment on above:Result Comment: CUT-OFF POINTS HAVE BEEN ESTABLISHED BASED ON THE FOURTH UNIVERSAL DEFINITIONS OF MY OCARDIAL INFARCTION. THE UPPER REFERENCE LIMIT (URL) OF TROPONIN, DEFINED THE 99TH PERCENTILE OF cTnI DISTRIBUTION IN A REFERENCE POPULATION, HAS BEEN CONFIRMED THE DECISION THRESHOLD FOR [place] DIAGNOSIS.Performed By: #### BMP, CMADM ####[facility] [address] [address]Dr. Sea RowlandO241 ng/mL Critically wkch82-91Hox [facility] on above:Performed By: #### BMP, CMADM ####[facility] [address] [place] [address]Dr. Sea Rachel AUTO DIFFon 00-98-2224LIJV #0.0 103/ulNormal0.0-0.1The [facility] HospitalComment on above:Performed By: #### CBC #### [facility] [address] [address] [address] Sea Montgomerysophils/100 WBC (Bld)0.3 %Normal0.2-2.0[facility] Comment on above:Performed By: #### CBC #### [facility] [address] [address] [address] Sea Torre #0.2 103/ulNormal0.0-0.7The [facility] on above: Performed By: #### CBC #### [facility] [address] [address] [address] Sea Fordosinophils/100 WBC (Bld)1.4 %Normal0.9-7.0[facility] Comment on above:Performed By: #### CBC #### [facility] [address] [place] [address] Dr. Sea Fordrythrocyte distribution width (RBC) [Ratio]13.5 %Dglvob94.0-15.0 [facility] FoundationComment on above:Performed By: #### CBC #### [facility] [address] [place] [address] Dr. Sea PughHematocrit (Bld) [Volume fraction]37.5 %Critically low42.0-54.0 [facility] FoundationComment on above:Performed By: #### CBC #### [facility] [address] [place] [address] Dr. Sea PughHemoglobin (Bld) [Mass/Vol]13.4 g/dLCritically low14.0-18.0[facility] FoundationComment on above:Performed By: #### CBC #### [facility] [address] [place] [address] Dr. Sea Anguiano #0.08 10e3/ulCritically high0.00-0.03[facility] Comment on above:Performed By: #### CBC #### [facility] [address] [place] [address] Dr. Sea Anguiano %0.7 %Critically high0.0-0.5ThProMedica Defiance Regional HospitalComment on above:Performed By: #### CBC #### [facility] [address] [place] [address] Dr. Sea Galeano #1.1 103/ulCritically low1.2-3.8The [facility] Comment on above:Performed By: #### CBC #### [facility] [address] [place] [address] Dr. Sea Novamphocytes/100 WBC (Bld)8.7 %Critically low20.5-60.0[facility] FoundationComment on above:Performed By: #### CBC #### [facility] [address] [place] [address] Dr. Sea Merino DIFF REQNONormalThe Berger HospitalComment on above: Performed By: #### CBC #### [facility] [address] [place] [address] Dr. Sea Steele (RBC) [Entitic mass]30.0 hiTfijtk79.9-34.0The [facility] HospitalComment on above:Performed By: #### CBC #### [facility] [address] [place] [address] Dr. Sea Steele (RBC) [Mass/Vol]35.7 g/dLCritically high29.9-35.2The [facility] HospitalComment on above:Performed By: #### CBC #### [facility] [address] [place] [address] Dr. Sea Izaguirre (RBC) [Entitic vol]84.1 cNLoiwqg85.0-94.0The [facility] HospitalComment on above:Performed By: #### CBC #### [facility] [address] [place] [address] Dr. Sea Rain #0.8 103/ulNormal0.3-0.8The [facility] HospitalComment on above:Performed By: #### CBC #### [facility] [address] [place] [address] Dr. Sea Bansalocytes/100 WBC (Bld)6.8 %Normal1.7-12.0[facility] Comment on above:Performed By: #### CBC #### [facility] [address] [place] [address] Dr. Sea Zapata #10.0 103/ulCritically high1.4-6.5[facility] Comment on above:Performed By: #### CBC #### [facility] [address] [place] [address] Dr. Sea Díazutrophils/100 WBC (Bld)82.1 %Critically high43.0-75.0The [facility] HospitalComment on above:Performed By: #### CBC #### [facility] [address] [place] [address] Dr. Sea Santacruzlet mean volume (Bld) [Entitic vol]9.2 fLCritically low 9.5-13.5The [facility] HospitalComment on above:Performed By: #### CBC #### [facility] [address] [place] [address] Dr. Sea PughPLT203 103/wjHpqarz804-131Kyp [facility] HospitalComment on above: Performed By: #### CBC #### [facility] [address] [address] [address] Sea PughRBC4.46 106/ulCritically low4.70-6.10The [facility] HospitalComment on above:Performed By: #### CBC #### [facility] [address] [place] [address] Dr. Sea PughWBC12.1 103/ulCritically high4.0-11.0The [facility] HospitalComment on above:Performed By: #### CBC #### [facility] [address] [place] [address] Dr. Sea PughCT CSPINE WO CONon 77-24-7288TD CSPINE WO CONEXAMINATION: CT CSPINE WO CON [...] Electronically authenticated by: REINA GOMEZ Date: 2022-04-19 20:22NoCleveland Clinic Avon HospitalCT STROKE HEAD WOon [id number] STROKE HEAD WONONCONTRAST CT SCAN OF THE [...] Electronically authenticated by: OBI MIDDLETON Date: 2022-04-19 20:[address] [place] [address] CHEST WO W CONon [id number] CHEST WO W CON EXAMINATION:CTA CHEST WO [...] MOON Date: 2022-04-19 21:52[facility] CenterD-[facility]IMERon 09-01-9159R-DIMER2.01 mg/L FEUCritically high<=0.59 The [facility] Hospitalment on above:Performed By: #### DDIM #### [facility] [address] [address] [address] Sea Castro-DIMER COMMENTSSEE BELOWCincinnati Children's Hospital Medical Center on above:Result Comment: Increases in D-Dimer concentration [...] generalized hospitalization. Performed By: #### DDIM #### [facility] [address] [address] [address] Sea PughPROF CHEM 8 (BAS METB)on 73-64-6770Kjpaj gap [Moles/Vol]19.2 mmol/LNormalThe [facility] on above:Performed By: #### DALE, DOUGIEDM ####[facility] [address] [address]Dr. Sea ChangCalcium [Mass/Vol]9.1 mg/dLNormal8.5-10.1The [facility] on above:Performed By: #### DALE, CMADM ####[facility] [address] [address]Dr. Sea ChangChloride [Moles/Vol]98 mmol/L Euduwg32-079Ttq [facility] on above:Performed By: #### DALE, CMADM ####[facility] [address] [address]DrMook Osei ChangCO2 [Moles/Vol]21.4 mmol/IMynfpj70.0-32.0The López HospitalComment on above:Performed By: #### DALE, CMADM ####[facility] [address] [address]Dr. Yilan ChangCreatinine [Mass/Vol]1.45 mg/dLCritically high0.70-1.30The [facility] HospitalComment on above:Performed By: #### DALE, CMADM ####[facility] [address] [address]Dr. Yilan ChangEGFR-AF ZTOQGCGB48 mL/min/1.91c8Kurtwblqsb low>=60The [facility] HospitalComment on above:Performed By: #### DALE, CMADM ####[facility] Offkdwgfib[address] [place], [place] [address]Dr. Yilan ChangEGFR- NON AF HCRLPDCF47 mL/min/1.97a9Fasmmbmdda low>=60The [facility] HospitalComment on above:Performed By: #### DALE, CMADM ####[facility] Gmn[address] [place], [place] [address]Dr. Yilan ChangGlucose [Mass/Vol]221 mg/dL Critically amkl45-130Uew [facility] HospitalComment on above:Performed By: #### DALE, CMADM ####[facility] Thnitnny[address] [place], [place] [address]Dr. Yilan ChangPotassium [Moles/Vol]3.6 mmol/LNormal3.5-5.1The [facility] HospitalComment on above:Performed By: #### DALE, CMADM ####[facility] Qwldoxoz[address] [place], [place] [address]Dr. Yilan ChangSodium [Moles/Vol]135 mmol/LCritically vii380-812Jgu [facility] HospitalComment on above: Performed By: #### DALE, CMADM ####[facility] Blogpjckax[address] [place], [place] [address]Dr. Yilan ChangUrea nitrogen [Mass/Vol]12.0 mg/dL Normal7.0-18.0The [facility] HospitalComment on above:Performed By: #### DALE, CMADM ####[facility] [address] [place] [address] Sea PughUrea nitrogen/Creatinine [Mass ratio]8.3 mg/mgNoRegency Hospital [facility] on above:Performed By: #### BMP, CMADM ####[facility] [address] [place], [place] [address]Hx. Sea PughXR CHEST 1 Von [id number] CHEST 1 VEXAMINATION: XR CHEST 1 V HISTORY: Left arm weakness and tingling. 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 COMPARISON: 09/22/2021 portable chest TECHNIQUE: Portable chest FINDINGS: The lung parenchyma is free of consolidation or infiltrate. No pneumothorax or pleural effusion. The cardiac, mediastinal and hilar contours are normal. The visualized osseous structures exhibit no gross abnormality. IMPRESSION: No acute cardiopulmonary abnormality. Electronically authenticated by: REINA GOMEZ Date: 2022-04-19 20:12[facility] CenterXR MODIFIED BARIUM SWALLOWon [id number] MODIFIED BARIUM SWALLOWEXAMINATION: XR MODIFIED BARIUM SWALLOW [...] modified barium swallow Electronically authenticated by: REINA OG Date: 2021-12-20 10:49[facility] CenterCARDIAC SRINIVASAN 3-6on [id number] [Catalytic activity/Vol]63 U/L Ielaam31-032Qsd [facility] on above:Performed By: #### CMREP ####[facility] [address] [place], [place] [address]Zo. Sea PughCK.MB [Mass/Vol]1.00 ng/mLNormal<=3.60[facility] on above:Performed By: #### CMREP ####[facility] Xax[address] [place], [place] [address]Vv. Sea PughHSTROP7.1 pg/mLNormal4.0-76.1The Raleigh HospitalComment on above:Result Comment: CUT-OFF POINTS HAVE BEEN ESTABLISHED BASED ON THE FOURTH UNIVERSAL DEFINITIONS OF MYOCARDIAL INFARCTION. THE UPPER REFERENCE LIMIT (URL) OF TROPONIN, DEFINED THE 99TH PERCENTILE OF cTnI DISTRIBUTION IN A REFERENCE POPULATION, HAS BEEN CONFIRMED THE DECISION THRESHOLD FOR [place] DIAGNOSIS.Performed By: #### CMREP ####[facility] [address] [address]Dr. Sea Boles SRINIVASAN ADMITon [id number] [Catalytic activity/Vol]66 U/TQxwira60-162Qpz [facility] Comment on above:Performed By: #### DDIM #### [facility] [address] [address] [address] Sea Dailey.MB [Mass/Vol]0.93 ng/mLNormal<=3.60[facility] Comment on above:Performed By: #### DDIM #### [facility] [address] [place] [address] Dr. Sea PughHSTROP8.2 pg/mLNormal4.0-76.1[facility] on above:Result Comment: CUT-OFF POINTS HAVE BEEN ESTABLISHED BASED ON THE FOURTH UNIVERSAL DEFINITIONS OF MYOCARDIAL INFARCTION. THE UPPER REFERENCE LIMIT (URL) OF TROPONIN, DEFINED THE 99TH PERCENTILE OF cTnI DISTRIBUTION IN A REFERENCE POPULATION, HAS BEEN CONFIRMED THE DECISION THRESHOLD FOR [place] DIAGNOSIS.Performed By: #### DDIM #### [facility] [address] [address] [address] Sea RowlandO62 ng/hLAqfwkl21-05Yza [facility] HospitalComment on above: Performed By: #### DDIM #### [facility] [address] [address] [address] Sea CampuzanoC AUTO DIFFon [id number] #0.0 103/ulNormal0.0-0.1The [facility] HospitalComment on above:Performed By: #### DDIM #### [facility] [address] [address] [address] Sea PughBasophils/100 WBC (Bld)0.3 %Normal0.2-2.0[facility] Comment on above:Performed By: #### DDIM #### [facility] [address] [place] [address] Dr. Sea Torre #0.5 103/ulNormal0.0-0.7The [facility] HospitalComment on above: Performed By: #### DDIM #### [facility] [address] [place] [address] Dr. Sea Fordosinophils/100 WBC (Bld)5.4 %Normal0.9-7.0[facility] Comment on above:Performed By: #### DDIM #### [facility] [address] [place] [address] Dr. Sea Fordrythrocyte distribution width (RBC) [Ratio]13.7 %Adirpq20.0-15.0 [facility] FoundationComment on above:Performed By: #### DDIM #### [facility] [address] [place] [address] Dr. Sea PughHematocrit (Bld) [Volume fraction]34.9 %Critically low42.0-54.0 [facility] FoundationComment on above:Performed By: #### DDIM #### [facility] [address] [place] [address] Dr. Sea PughHemoglobin (Bld) [Mass/Vol]12.2 g/dLCritically low14.0-18.0[facility] FoundationComment on above:Performed By: #### DDIM #### [facility] [address] [place] [address] Dr. Sea Anguiano #0.07 10e3/ulCritically high0.00-0.03The [facility] Comment on above:Performed By: #### DDIM #### [facility] [address] [place] [address] Dr. Sea Anguiano %0.7 %Critically high0.0-0.5ThProMedica Defiance Regional HospitalComment on above:Performed By: #### DDIM #### [facility] [address] [place] [address] Dr. Sea Galeano #1.3 103/ulNormal1.2-3.8The [facility] HospitalComment on above:Performed By: #### DDIM #### [facility] [address] [place] [address] Dr. Sea Novamphocytes/100 WBC (Bld)13.5 %Critically low20.5-60.0The [facility] HospitalComment on above:Performed By: #### DDIM #### [facility] [address] [place] [address] Dr. Sea Merino DIFF REQNONormalThe Berger HospitalComment on above: Performed By: #### DDIM #### [facility] [address] [place] [address] Dr. Sae Figueroa (RBC) [Entitic mass]30.5 xjBxuctv99.9-34.0The [facility] HospitalComment on above:Performed By: #### DDIM #### [facility] [address] [place] [address] Dr. Sea Steele (RBC) [Mass/Vol]35.0 g/fPIrquay87.9-35.2The [facility] HospitalComment on above:Performed By: #### DDIM #### [facility] [address] [place] [address] Dr. Sea Steele (RBC) [Entitic vol]87.3 vZKuspve68.0-94.0The [facility] HospitalComment on above:Performed By: #### DDIM #### [facility] [address] [place] [address] Dr. Sea Rain #1.3 103/ulCritically high0.3-0.8The [facility] Comment on above:Performed By: #### DDIM #### [facility] [address] [place] [address] Dr. Sea Bansalocytes/100 WBC (Bld)12.9 %Critically high1.7-12.0The [facility] HospitalComment on above:Performed By: #### DDIM #### [facility] [address] [place] [address] Dr. Sea DíazUT #6.7 103/ulCritically high1.4-6.5[facility] Comment on above:Performed By: #### DDIM #### [facility] [address] [place] [address] Dr. Sea Díazutrophils/100 WBC (Bld)67.2 %Vhkfnm55.0-75.0The [facility] HospitalComment on above:Performed By: #### DDIM #### [facility] [address] [place] [address] Dr. Sea PughPlatelet mean volume (Bld) [Entitic vol]9.7 fLNormal9.5-13.5The [facility] HospitalComment on above:Performed By: #### DDIM #### [facility] [address] [place] [address] Dr. Sea PughPLT226 103/iyWqzral128-962Rfh [facility] HospitalComment on above: Performed By: #### DDIM #### [facility] [address] [place] [address] Dr. Sea PughRBC4.00 106/ulCritically low4.70-6.10The [facility] HospitalComment on above:Performed By: #### DDIM #### [facility] [address] [place] [address] Dr. Sea PughWBC10.0 103/ulNormal4.0-11.0The [facility] HospitalComment on above:Performed By: #### DDIM #### [facility] [address] [place] [address] Dr. Sea Schultz CHEST WO W CONon [id number] CHEST WO W CONEXAMINATION: CTA CHEST WO [...] CUELLO Date: 2021-12-06 01:29[facility] CenterD-DIMERon 58-07-2072M-DIMER1.11 mg/L FEUCritically high<=0.59 The [facility] HospitalComment on above:Performed By: #### DDIM #### [facility] [address] [address] [address] Sea Castro-DIMER COMMENTSSEE BELOWHenry County Hospitalment on above:Result Comment: Increases in D-Dimer [...] generalized hospitalization. Performed By: #### DDIM #### [facility] [address] [address] [address] Sea PughPROF CHEM 8 (BAS METB)on 09-75-6990Hxkli gap [Moles/Vol]9.5 mmol/LNormalThe Berger HospitalComment on above:Performed By: #### HSTROPN, CMP, CRP #### [facility] [address] [address] [address] Sea PughCalcium [Mass/Vol]8.6 mg/dLNormal8.5-10.1[facility] Comment on above:Performed By: #### HSTROPN, CMP, CRP #### [facility] [address] [address] [address] Sea PughChloride [Moles/Vol]100 mmol/SFktgqe02-573Vgw [facility] Comment on above:Performed By: #### HSTROPN, CMP, CRP #### [facility] [address] [place] [address] Dr. Sea PughCO2 [Moles/Vol]25.8 mmol/MQxdajr88.0-32.0[facility] Comment on above:Performed By: #### HSTROPN, CMP, CRP #### [facility] [address] [address] [address] Sea PughCreatinine [Mass/Vol]1.12 mg/dLNormal0.70-1.30The [facility] HospitalComment on above:Performed By: #### HSTROPN, CMP, CRP #### [facility] [address] [place] [address] Dr. Sea FordGFR-AF MOSOTHO>60Normal>=60The [facility]ment on above:Performed By: #### HSTROPN, CMP, CRP #### [facility] [address] [place] [address] Dr. Sea FordGFR-NON AF MOSOTHO>60Normal>=60The [facility] HospitalComment on above:Performed By: #### HSTROPN, CMP, CRP #### [facility] [address] [place] [address] Dr. Sea PughGlucose [Mass/Vol]201 mg/dLCritically sepj46-688Thp [facility] HospitalComment on above:Performed By: #### HSTROPN, CMP, CRP #### [facility] [address] [address] [address] Sea PughPotassium [Moles/Vol]3.3 mmol/LCritically low3.5-5.1The [facility] HospitalComment on above:Performed By: #### HSTROPN, CMP, CRP #### [facility] [address] [address] [address] Sea PughSodium [Moles/Vol]132 mmol/LCritically qzb847-104Pah [facility] HospitalComment on above:Performed By: #### HSTROPN, CMP, CRP #### [facility] [address] [address] [address] Sea PughUrea nitrogen [Mass/Vol]16.0 mg/dLNormal7.0-18.0The [facility] HospitalComment on above:Performed By: #### HSTROPN, CMP, CRP #### [facility] [address] [address] [address] Sea PughUrea nitrogen/Creatinine [Mass ratio]14.3 mg/mgNormalThe Berger HospitalComment on above:Performed By: #### HSTROPN, CMP, CRP #### [facility] [address] [address] [address] Sea Montgomerysic Metabolic Panelon 18-59-3968Iebjw gap [Moles/Vol]12 mmol/L9 - 17 mmol/LBON SECOURS MERCY HEALTHCalcium [Mass/Vol]8.3 mg/dLLow8.6 - 10.4 mg/dLBON SECOURS MERCY HEALTHChloride [Moles/Vol]100 mmol/L98 - 107 mmol/LBON SECOURS MERCY HEALTHCO2 [Moles/Vol]21 mmol/L20 - 31 mmol/LBON [facility]OURS MERCY HEALTHCreatinine [Mass/Vol]0.69 mg/dLLow0.7 - 1.2 mg/dLBON SECOURS MERCY [facility]ALTH GFR >6060 - PINF mL/minBON SECOURS MERCY HEALTHGFR Non->6060 - PINF mL/minBON SECOURS MERCY HEALTHGFR/1.73 sq M.predicted MDRD (S/P/Bld) [Vol rate/Area][facility] HOSPITALComment on above:Average GFR for 70 or more years old: 75 mL/min/1.73sq m Chronic Kidney Disease: <60 mL/min/1.73sq m Kidney failure: <15 mL/min/1.73sq m eGFR calculated using average adult body mass. Additional eGFR calculator available at: http://www.Yammer/multiple_crcl_2011.htm Glucose [Mass/Vol]138 mg/cHFgpy73 - 99 mg/dLBON [facility] Interpretation and review of laboratory resultsAbnormalDICKENSON COMMUNITY HOSPITAL Potassium [Moles/Vol]4.0 mmol/L3.7 - 5.3 mmol/LBON [facility]IO VALLEY HOSPITALSodium [Moles/Vol]133 mmol/JEtk677 - 144 mmol/LBON [facility] VALLEY HOSPITALUrea nitrogen (BldV) [Mass/Vol]12 mg/dL8 - 23 mg/dLBON FREEMAN REGIONAL HEALTH SERVICESBasic Metabolic Profon 12-04-2021(cont.)NormalMarietta Osteopathic ClinicComment on above:Result Comment: Average GFR for 70 or more years old: 75 mL/min/1.73sq m Chronic Kidney Disease: <60 mL/min/1.73sq m Kidney failure: <15 mL/min/1.73sq m eGFR calculated using average adult body mass. Additional eGFR calculator available at: http://www.Yammer/multiple_crcl_2011.htmPerformed By: #### DALE MALDONADO, CDP #### [facility] [address] [id number] Youth Care Specialist: Afshin Mansfield MDAnion gap [Moles/Vol]12 mmol/LNormal9-17[facility] ClinicComment on above:Performed By: #### DALE MALDONADO, CDP #### [facility] [address] [place], [place] [phone] Youth Care Specialist: WOODROW Westfallalcium [Mass/Vol]8.3 mg/dLLow8.6-10.4[facility] ClinicComment on above:Performed By: #### DALE MALDONADO, CDP #### [facility] [address] [place] [address] Youth Care Specialist: WOODROW Westfallhloride [Moles/Vol]100 mmol/QInlzhz49-539QdwycMarietta Osteopathic ClinicComment on above:Performed By: #### DALE MALDONADO, CDP #### [facility] [address] [place] [address] Youth Care Specialist: Afshin Mansfield MDCO2 [Moles/Vol]21 mmol/AUyjkbt38-75XueluMarietta Osteopathic ClinicComment on above:Performed By: #### DALE MALDONADO, CDP #### [facility] [address] [place] [address] Youth Care Specialist: WOODROW Westfallreatinine [Mass/Vol]0.69 mg/dLLow0.70-1.20[facility] ClinicComment on above:Performed By: #### DALE MALDONADO, CDP #### [facility] [address] [place] [address] Youth Care Specialist: Afshin Mansfield MDGFR, Amer>60Normal>60[facility]opathic ClinicComment on above:Performed By: #### DALE MALDONADO, CDP #### [facility] [address] [place] [address] Youth Care Specialist: Afshin Mansfield MDGFR,non Amer>60Normal>60[facility] ClinicComment on above:Performed By: #### DALE MALDONADO, CDP #### [facility] [address] [place] [address] Youth Care Specialist: Afshin Mansfield MDGlucose [Mass/Vol]138 mg/eOFzoh35-40VkhkgCoast Plaza HospitalComment on above:Performed By: #### DALE MALDONADO, CDP #### [facility] [address] [place] [address] Youth Care Specialist: JOJO Westfallotassium [Moles/Vol]4.0 mmol/LNormal3.7-5.3 [facility] ClinicComment on above:Performed By: #### DALE MALDONADO, CDP #### [facility] [address] [place] [address] Youth Care Specialist: KRISTIAN Westfallodium [Moles/Vol]133 mmol/RJkl456-742ImtojMarietta Osteopathic ClinicComment on above:Performed By: #### DALE MALDONADO, CDP #### [facility] [address] [place] [address] Youth Care Specialist: Afshin Mansfield MDUrea nitrogen [Mass/Vol]12 mg/dLNormal8-23[facility] ClinicComment on above:Performed By: #### DALE MALDONADO, CDP #### [facility] [address] [place] [address] Youth Care Specialist: Afshin Mansfield [facility] WOODWARDBC with Auto Differentialon 48-91-4560Yonuiqnu Eos #0.64HighBON SECOURS MERCY HEALTHAbsolute Immature Granulocyte0.06B[facility] HEALTHAbsolute Lymph #1.09LowBON SECOURS MERCY HEALTHAbsolute Mcduffie #1.29HighBON SECOURS MERCY HEALTHBasophils (Bld) [#/Vol]0.04 10*3/uLBON SECOURS MERCY HEALTHBasophils/100 WBC (Bld)0 %0 - 2 %[facility] Eosinophils/100 WBC (Bld)6 %High1 - 4 %[facility]CY HEALTHHematocrit (Bld) [Volume fraction]36.1 %Low40.7 - 50.3 %[facility]CY HEALTHHemoglobin (Bld) [Mass/Vol]12.6 g/dLLow13 - 17 g/dLBON SECOURS MERCY HEALTHImmature granulocytes/100 WBC (Bld)1 %Qdnd5SXF [facility] HEALTHInterpretation and review of laboratory resultsAbnormalBON SECOURS MERCY HEALTHLymphocytes/100 WBC (Bld)9 %Low24 - 43 %[facility] SYSTEMH (RBC) [Entitic mass]30.1 pg25.2 - 33.5 pgBON ADENA HEALTH SYSTEMHC (RBC) [Mass/Vol]34.9 g/iEUybg15.4 - 34.8 g/dLBON SECTWIN CITY HOSPITALV (RBC) [Entitic vol]86.2 fL82.6 - 102.9 fLDICKENSON COMMUNITY HOSPITALMonocytes/100 WBC (Bld)11 %3 - 12 %[facility] NRBC Automated0.00.0 per 100 WBCBON OHIO VALLEY HOSPITALPlatelet distribution width (Bld) [Ratio]13.6 %11.8 - 14.4 %B[facility] HOSPITALPlatelet mean volume (Bld) [Entitic vol]9.8 fL8.1 - 13.5 fLBON GARDENS REGIONAL HOSPITAL & [facility] CENTER - HAWAIIAN GARDENS HEALTHPlatelets (Bld) [#/Vol]212 10*3/uLBON OHIO VALLEY HOSPITALRBC (Bld) [#/Vol]4.19 10*6/uLLow 4.21 - 5.77 m/uLDICKENSON COMMUNITY HOSPITALSegmented neutrophils/100 WBC (Bld)73 % High36 - 65 %B[facility] HOSPITALSegs Absolute8.59HighBON OHIO VALLEY HOSPITALWBC (Bld) [#/Vol]11.7 10*3/uLHighBON FREEMAN REGIONAL HEALTH SERVICESCBC with Diffon 20-63-9711Mto. Basophil0.04 k/uLNormal0.00-0.20[facility] ClinicComment on above:Performed By: #### DALE MALDONADO, CDP #### [facility] [address] [place], [place] [phone] Youth Care Specialist: Virgil Westfall.Imm.Granulocyte0.06 k/uLNormal0.00-0.30[facility] ClinicComment on above:Performed By: #### DALE MALDONADO, CDP #### [facility] [address] [place], [place] [phone] Youth Care Specialist: Virgil Westfall.Neutrophil (Seg)8.59 k/uLHigh1.50-8.10[facility] ClinicComment on above:Performed By: #### DALE MALDONADO, CDP #### [facility] [address] [place] [address] Youth Care Specialist: Afshin Mansfield MDBasophils/100 WBC (Bld)0 %Normal0-2MScripps Mercy HospitalComment on above:Performed By: #### DALE MALDONADO, CDP #### [facility] [address] [place] [address] Youth Care Specialist: Afshin Mansfield MDEosinophils (Bld) [#/Vol]0.64 10*3/uLHigh 0.00-0.44[facility] ClinicComment on above:Performed By: #### DALE MALDONADO, CDP #### [facility] [address] [place] [address] Youth Care Specialist: MINERVA Westfallosinophils/100 WBC (Bld)6 %High1-4[facility] ClinicComment on above:Performed By: #### DALE MALDONADO, CDP #### [facility] [address] [place] [address] Youth Care Specialist: Afshin Mansfield MDErythrocyte distribution width (RBC) [Ratio]13.6 %Wgmnhx46.8-14.4[facility] ClinicComment on above:Performed By: #### DALE MALDONADO, CDP #### [facility] [address] [place] [address] Youth Care Specialist: Afshin Mansfield MDHematocrit (Bld) [Volume fraction]36.1 %Low 40.7-50.3MScripps Mercy HospitalComment on above:Performed By: #### DALE MALDONADO, CDP #### [facility] [address] [place] [address] Youth Care Specialist: Afshin Mansfield MDHemoglobin (Bld) [Mass/Vol]12.6 g/dLLow13.0-17.0 [facility] ClinicComment on above:Performed By: #### DALE MALDONADO, CDP #### [facility] [address] [place] [address] Youth Care Specialist: Afshin Mansfield MDImmature granulocytes/100 WBC (Bld)1 %Sjch3ObgfhMarietta Osteopathic ClinicComment on above:Performed By: #### DALE MALDONADO, CDP #### [facility] [address] [place] [address] Youth Care Specialist: Afshin Mansfield MDLymphocytes (Bld) [#/Vol]1.09 10*3/uLLow 1.10-3.70[facility] ClinicComment on above:Performed By: #### DALE MALDONADO, CDP #### [facility] [address] [place] [address] Youth Care Specialist: Vijay Westfallmphocytes/100 WBC (Bld)9 %Ocn39-26DhbrtMarietta Osteopathic ClinicComment on above:Performed By: #### DALE MALDONADO, CDP #### [facility] [address] [place] [address] Youth Care Specialist: BRITTANY WestfallCH (RBC) [Entitic mass]30.1 xnPtpsgy61.2-33.5 [facility] ClinicComment on above:Performed By: #### DALE MALDONADO, CDP #### [facility] [address] [place] [address] Youth Care Specialist: CONNIE WestfallC (RBC) [Mass/Vol]34.9 g/yUFggn37.4-34.8[facility] ClinicComment on above:Performed By: #### DALE MALDONADO, CDP #### [facility] [address] [place] [address] Youth Care Specialist: BRITTANY WestfallCV (RBC) [Entitic vol]86.2 hHTxpjjj09.6-102.9 [facility] ClinicComment on above:Performed By: #### DALE MALDONADO, CDP #### [address] [address] Youth Care Specialist: BRITTANY Westfallonocytes (Bld) [#/Vol]1.29 10*3/uLHigh0.10-1.20 [facility] ClinicComment on above:Performed By: #### DALE MALDONADO, CDP #### [facility] [address] [place] [address] Youth Care Specialist: BRITTANY Westfallonocytes/100 WBC (Bld)11 %Normal3-12[facility] ClinicComment on above:Performed By: #### DALE MALDONADO, CDP #### [facility] [address] [place] [address] Youth Care Specialist: Pravin Westfallophil (Seg)73 %Ttyx07-82DaejqMarietta Osteopathic ClinicComment on above:Performed By: #### DALE MALDONADO, CDP #### [facility] [address] [place] [address] Youth Care Specialist: Afshin Mansfield MDNRBC Automated0.0 per 100 WBCNormal0.0[facility] ClinicComment on above:Performed By: #### DALE MALDONADO, CDP #### [facility] [address] [place] [address] Youth Care Specialist: JOJO Westfalllatelet mean volume (Bld) [Entitic vol]9.8 fL Normal8.1-13.5[facility] ClinicComment on above:Performed By: #### DALE MALDONADO, CDP #### [facility] [address] [place] [address] Youth Care Specialist: JOJO Westfalllatelets (Bld) [#/Vol]212 10*3/lYSuudel602-343 [facility] ClinicComment on above:Performed By: #### DALE MALDONADO, CDP #### [facility] [address] [place] [address] Youth Care Specialist: KEIKO WestfallBC (Bld) [#/Vol]4.19 10*6/uLLow4.21-5.77Marietta Osteopathic ClinicComment on above:Performed By: #### DALE MALDONADO, CDP #### [facility] [address] [place] [address] Youth Care Specialist: XANDER Westfall (Bld) [#/Vol]11.7 10*3/uLHigh3.5-11.3MScripps Mercy HospitalComment on above:Performed By: #### DALE MALDONADO, CDP #### [facility] [address] [place] [address] Youth Care Specialist: JEANETTE Westfall Glucose Fingerstickon 67-49-2537Oknlzor [Mass/Vol]110 mg/dL75 - 110 mg/dLBON OHIO VALLEY HOSPITALBON [facility] VALLEY HOSPITALBasic Metabolic Panelon 01-51-2369Atwsj gap [Moles/Vol]14 mmol/L9 - 17 mmol/LBON [facility] HOSPITALCalcium [Mass/Vol]8.0 mg/dLLow8.6 - 10.4 mg/dLBON SECOURS BARNESVILLE HOSPITALChloride [Moles/Vol]101 mmol/L98 - 107 mmol/LBON SECOURS BARNESVILLE HOSPITALCO2 [Moles/Vol]18 mmol/LLow20 - 31 mmol/LBON [facility] Creatinine [Mass/Vol]0.67 mg/dLLow0.7 - 1.2 mg/dLBON [facility]ULT[facility] COMM[facility]ITY HOSPITALGFR >6060 - PINF mL/minB[facility] HEALTHGFR Non->6060 - PINF mL/minB[facility] HEALTHGFR/1.73 sq M.predicted MDRD (S/P/Bld) [Vol rate/Area][facility] HOSPITALComment on above:Average GFR for 70 or more years old: 75 mL/min/1.73sq m Chronic Kidney Disease: <60 mL/min/1.73sq m Kidney failure: <15 mL/min/1.73sq m eGFR calculated using average adult body mass. Additional eGFR calculator available at: http://www.Yammer/multiple_crcl_2011.htm Glucose [Mass/Vol]156 mg/zAEzyf05 - 99 mg/dLBON [facility] Interpretation and review of laboratory resultsAbnormalDICKENSON COMMUNITY HOSPITAL Potassium [Moles/Vol]3.9 mmol/L3.7 - 5.3 mmol/LBON [facility] VALLEY HOSPITALSodium [Moles/Vol]133 mmol/NRom081 - 144 mmol/LBON [facility] VALLEY HOSPITALUrea nitrogen (BldV) [Mass/Vol]12 mg/dL8 - 23 mg/dLBON [facility] HEALTH SERVICESBasic Metabolic Profon 12-03-2021(cont.)NormalMarietta Osteopathic ClinicComment on above:Result Comment: Average GFR for 70 or more years old: 75 mL/min/1.73sq m Chronic Kidney Disease: <60 mL/min/1.73sq m Kidney failure: <15 mL/min/1.73sq m eGFR calculated using average adult body mass. Additional eGFR calculator available at: http://www.Yammer/Frogtek Bop_crcl_2011.htmPerformed By: #### DALE MALDONADO, CDP #### [facility] [address], [place] [id number] Youth Care Specialist: Byron Westfall gap [Moles/Vol]14 mmol/LNormal9-17[facility] Osteopathic ClinicComment on above:Performed By: #### DALE MALDONADO, CDP #### [facility] [address] [place] [address] Youth Care Specialist: Afshin Madoff, MDCalcium [Mass/Vol]8.0 mg/dLLow8.6-10.4[facility] Osteopathic ClinicComment on above:Performed By: #### DALE MALDONADO, CDP #### [facility] [address] [place] [address] Youth Care Specialist: WOODROW Westfallhloride [Moles/Vol]101 mmol/EIoqrbt43-495CpdpnMarietta Osteopathic ClinicComment on above:Performed By: #### DALE MALDONADO, CDP #### [facility] [address] [place] [address] Youth Care Specialist: Afshin Mansfield MDCO2 [Moles/Vol]18 mmol/PCli98-33AssbiMarietta Osteopathic ClinicComment on above:Performed By: #### DALE MALDONADO, CDP #### [facility] [address] [place] [address] Youth Care Specialist: WOODROW Westfallreatinine [Mass/Vol]0.67 mg/dLLow0.70-1.20[facility] ClinicComment on above:Performed By: #### DALE MALDONADO, CDP #### [facility] [address] [place] [address] Youth Care Specialist: Afshin Mansfield MDGFR, Amer>60Normal>60[facility] Osteopathic ClinicComment on above:Performed By: #### DALE MALDONADO, CDP #### [facility] [address] [place] [address] Youth Care Specialist: Afshin Mansfield MDGFR,non Amer>60Normal>60[facility] Osteopathic ClinicComment on above:Performed By: #### DALE MALDONADO, CDP #### [facility] [address] [place] [address] Youth Care Specialist: Afshin Mansfield MDGlucose [Mass/Vol]156 mg/bFMyko56-24FwmccCoast Plaza HospitalComment on above:Performed By: #### DALE MALDONADO, CDP #### [facility] [address] [place] [address] Youth Care Specialist: JOJO Westfallotassium [Moles/Vol]3.9 mmol/LNormal3.7-5.3 [facility]opathic ClinicComment on above:Performed By: #### DALE MALDONADO, CDP #### [facility] [address] [place] [address] Youth Care Specialist: Afshin Mansfield MDSodium [Moles/Vol]133 mmol/WGrs551-733UxatdMarietta Osteopathic ClinicComment on above:Performed By: #### DALE MALDONADO, CDP #### [facility] [address] [place] [address] Youth Care Specialist: Afshin Mansfield MDUrea nitrogen [Mass/Vol]12 mg/dLNormal8-23[facility]opathic ClinicComment on above:Performed By: #### DALE MALDONADO, CDP #### [facility] [place] [address] Youth Care Specialist: Afshin Mansfield [facility] with Auto Differentialon 05-16-6534Ewkbmutr Eos #0.54HighBON SECOURS MERCY HEALTHAbsolute Immature Granulocyte0.07[facility] HEALTHAbsolute Lymph #1.07LowBON SECOURS MERCY HEALTHAbsolute Mcduffie #1.20[facility] HEALTHBasophils (Bld) [#/Vol]0.03 10*3/uLBON SECOURS MERCY HEALTHBasophils/100 WBC (Bld)0 %0 - 2 %[facility] Eosinophils/100 WBC (Bld)5 %High1 - 4 %[facility] HEALTHHematocrit (Bld) [Volume fraction]37.0 %Low40.7 - 50.3 %[facility] HEALTHHemoglobin (Bld) [Mass/Vol]13.1 g/dL13 - 17 g/dLBON SECOURS MERCY HEALTHImmature granulocytes/100 WBC (Bld)1 %Kdas3OUL [facility] VALLEY HOSPITALInterpretation and review of laboratory resultsAbnormalBON OHIO VALLEY HOSPITALLymphocytes/100 WBC (Bld)10 % Low24 - 43 %BON [facility] HEALTH SYSTEMH (RBC) [Entitic mass]30.8 pg25.2 - 33.5 pgBON ADENA HEALTH SYSTEMHC (RBC) [Mass/Vol]35.4 g/kELxdp77.4 - 34.8 g/dLBON SECTWIN CITY HOSPITALV (RBC) [Entitic vol]87.1 fL82.6 - 102.9 fLBON OHIO VALLEY HOSPITALMonocytes/100 WBC (Bld)11 %3 - 12 %B[facility]LEY HOSPITALNRBC Automated0.00.0 per 100 WBCDICKENSON COMMUNITY HOSPITALPlatelet distribution width (Bld) [Ratio]13.7 %11.8 - 14.4 %BON [facility] VALLEY HOSPITALPlatelet mean volume (Bld) [Entitic vol]10.6 fL8.1 - 13.5 fLMOUNTAIN VIEW REGIONAL MEDICAL CENTER HEALTHPlatelets (Bld) [#/Vol]223 10*3/uLBON OHIO VALLEY HOSPITALRBC (Bld) [#/Vol]4.25 10*6/uL4.21 - 5.77 m/uLDICKENSON COMMUNITY HOSPITALSegmented neutrophils/100 WBC (Bld)73 %High36 - 65 %BON OH[facility] VALLEY HOSPITALSegs Absolute8.06BON [facility] VALLEY HOSPITALWBC (Bld) [#/Vol]11.0 10*3/uLBON [facility] HEALTH SERVICESCBC with Diff on 36-07-4827Mkm. Basophil0.03 k/uLNormal0.00-0.20[facility] Osteopathic ClinicComment on above:Performed By: #### DALE MALDONADO CDP #### [facility] [address] [place], [place] [id number] Youth Care Specialist: Virgil Westfall.Imm.Granulocyte0.07 k/uLNormal0.00-0.30[facility] Osteopathic ClinicComment on above:Performed By: #### DALE MALDONADO CDP #### [facility] [address] [place] [address] Youth Care Specialist: Virgil Westfall.Neutrophil (Seg)8.06 k/uLNormal1.50-8.10 [facility]opathic ClinicComment on above:Performed By: #### DALE MALDONADO, CDP #### [address] [address] Youth Care Specialist: Afshin Mansfield MDBasophils/100 WBC (Bld)0 %Normal0-2MScripps Mercy HospitalComment on above:Performed By: #### ADLE MALDONADO, CDP #### [address] [address] Youth Care Specialist: Afshin Mansfield MDEosinophils (Bld) [#/Vol]0.54 10*3/uLHigh 0.00-0.44[facility]opathic ClinicComment on above:Performed By: #### DALE MALDONADO, CDP #### [facility] [address] [place] [address] Youth Care Specialist: MINERVA Westfallosinophils/100 WBC (Bld)5 %High1-4[facility] Osteopathic ClinicComment on above:Performed By: #### DALE MALDONADO, CDP #### [facility] [address] [place] [address] Youth Care Specialist: Afshin Mansfield MDErythrocyte distribution width (RBC) [Ratio]13.7 %Ehwnbx62.8-14.4[facility]opathic ClinicComment on above:Performed By: #### DALE MALDONADO, CDP #### [facility] [address] [place] [address] Youth Care Specialist: Afshin Manfsield MDHematocrit (Bld) [Volume fraction]37.0 %Low 40.7-50.3MercCoast Plaza HospitalComment on above:Performed By: #### DALE MALDONADO, CDP #### [facility] [address] [place] [address] Youth Care Specialist: Afshin Mansfield MDHemoglobin (Bld) [Mass/Vol]13.1 g/dLNormal 13.0-17.0[facility] ClinicComment on above:Performed By: #### DALE MALDONADO, CDP #### [facility] [address] [place] [address] Youth Care Specialist: Afshin Mansfield MDImmature granulocytes/100 WBC (Bld)1 %Cmjy3TkgafMarietta Osteopathic ClinicComment on above:Performed By: #### DALE MALDONADO, CDP #### [facility] [address] [place] [address] Youth Care Specialist: Afshin Mansfield MDLymphocytes (Bld) [#/Vol]1.07 10*3/uLLow 1.10-3.70[facility] ClinicComment on above:Performed By: #### DALE MALDONADO, CDP #### [facility] [address] [place] [address] Youth Care Specialist: Vijay Westfallmphocytes/100 WBC (Bld)10 %Aah88-61KnpryMarietta Osteopathic ClinicComment on above:Performed By: #### DALE MALDONADO, CDP #### [facility] [address] [place] [address] Youth Care Specialist: BRITTANY WestfallCH (RBC) [Entitic mass]30.8 gsTwlfbu53.2-33.5 [facility] ClinicComment on above:Performed By: #### DALE MALDONADO, CDP #### [facility] [address] [place] [address] Youth Care Specialist: BRITTANY WestfallCHC (RBC) [Mass/Vol]35.4 g/iIRnvb79.4-34.8[facility] ClinicComment on above:Performed By: #### DALE MALDONADO, CDP #### [facility] [address] [place] [address] Youth Care Specialist: BRITTANY WestfallCV (RBC) [Entitic vol]87.1 aDZaqdil89.6-102.9 [facility] ClinicComment on above:Performed By: #### DALE MALDONADO, CDP #### [facility] [address] [place] [address] Youth Care Specialist: BRITTANY Westfallonocytes (Bld) [#/Vol]1.20 10*3/uLNormal 0.10-1.20[facility] ClinicComment on above:Performed By: #### DALE MALDONADO, CDP #### [facility] [address] [place] [address] Youth Care Specialist: BRITTANY Westfallonocytes/100 WBC (Bld)11 %Normal3-12[facility]opathic ClinicComment on above:Performed By: #### DALE MALDONADO, CDP #### [address] [address] Youth Care Specialist: Pravin Westfallophil (Seg)73 %Ytls26-45LdcrbMarietta Osteopathic ClinicComment on above:Performed By: #### DLAE MALDONADO, CDP #### [facility] [address] [place] [address] Youth Care Specialist: MARIE Westfall Automated0.0 per 100 WBCNormal0.0[facility]opathic ClinicComment on above:Performed By: #### DALE MALDONADO, CDP #### [facility] [address] [place] [address] Youth Care Specialist: JOJO Westfalllatelet mean volume (Bld) [Entitic vol]10.6 fL Normal8.1-13.5[facility] Osteopathic ClinicComment on above:Performed By: #### DALE MALDONADO, CDP #### [facility] [address] [place] [address] Youth Care Specialist: Chilango Westfall ([facility]) [#/Vol]223 10*3/mFHwzaow548-829 [facility]opathic ClinicComment on above:Performed By: #### DALE MALDONADO, CDP #### [facility] [address] [place] [address] Youth Care Specialist: KEIKO Westfall ([facility]) [#/Vol]4.25 10*6/uLNormal4.21-5.77 [facility] ClinicComment on above:Performed By: #### DAEL MALDNOADO, CDP #### [facility] [address] [place] [address] Youth Care Specialist: XANDER Westfall ([facility]) [#/Vol]11.0 10*3/uLNormal3.5-11.3MScripps Mercy HospitalComment on above:Performed By: #### DALE MALDONADO, CDP #### [facility] [address] [place] [address] Youth Care Specialist: Vanessa Westfall,Bloodon 78-94-0533Kemk,BloodSpecimen Description .BLOOD Special Requests L HAND 20ML Culture NO GROWTH 5 DAYS Report Status FINAL 12/03/2021[facility] HospitalComment on above:Performed By: #### BC #### [facility] [address] [place] [address] Youth Care Specialist: Vanessa Westfall,BloodSpecimen Description .BLOOD Special Requests r hand 20ml Culture NO GROWTH 5 DAYS Report Status FINAL 12/03/2021[facility] HospitalComment on above:Performed By: #### DALE MALDONADO, CDP #### [facility] [address] [place] [address] Youth Care Specialist: Afshin Mansfield [facility] – WOODWARDulture, Blood 1on 21-67-6460Uhoeqlom identified Cx Nom (Unsp spec)NO GROWTH 5 DAYSBON SECEVERGREENHEALTHY HEALTHSpecial RequestsL HAND 20MLBON SECMediaCrossing Inc. [facility] HEALTH SYSTEMMicroCHIPS HEALTHSpecimen Description.BLOODBON [facility] HEALTHBacteria identified Cx Nom (Unsp spec)NO GROWTH 5 DAYSBON SECHUEY [facility] HEALTHSpecial Requestsr hand 20mlBON [facility] HEALTH Specimen Description.BLOODLIFEPOINT HEALTH HEALTHEKG 12 LeadOrdered By: Unknown Result on 70-48-8499Rsptnx Ajkm19FAPATH SECEVERGREENHEALTHMicroCHIPS HEALTHQ-T Aomuvoqr105 msBON SECOURS [facility] VALLEY HEALTH SYSTEMMicroCHIPS HEALTHQRS Ikfeltkb43 msBON SECOURS BLANCHARD VALLEY HEALTH SYSTEMY HEALTHQTc Calculation (Bazett)516 msBON SECEVERGREENHEALTHY HEALTHR Axis23 degreesBON [facility] HEALTHT Eueg30unahbppJVU [facility] HEALTH Ventricular Kpud65IKGYXL [facility] HEALTHEKG 12 Lead on 92-17-4911Wjtxio flutter with variable block Premature supraventricular complexes [...] no longer depressed in Anterior leads [facility] FA[facility] OAKS HOSPITALJRapid Work Phone: Osmolality, Urineon 33-95-8639Xgxxpapxze - Puxuk277 mOsm/voSnsgyi05-7938Chfyp [facility] Medical CenterComment on above:Performed By: #### IOCAL, BMP, CDP #### [facility] [address] [place] [address] Youth Care Specialist: Afshin Mansfield MDOsmolality, Bj329XIU FRE[facility] REGIONAL HEALTH SERVICESPOC Glucose Fingerstickon 79-40-8041Czhorjj [Mass/Vol]151 mg/sOTusa33 - 110 mg/dLBON [facility]IO VALLEY HOSPITALInterpretation and review of laboratory resultsAbnormalCRITICAL ACCESS HOSPITAL Glucose [Mass/Vol]172 mg/vIKcpd59 - 110 mg/dLB[facility] Interpretation and review of laboratory resultsAbnormalBON [facility] BON [facility] HOSPITALGlucose [Mass/Vol]160 mg/aOEskz08 - 110 mg/dLBON [facility] VALLEY HOSPITALInterpretation and review of laboratory resultsAbnormalCRITICAL ACCESS HOSPITALSODIUM, URINE, RANDOMon 56-80-7638Sfnhvv (U) [Moles/Vol]154 mmol/LBON OHIO VALLEY HOSPITALComment on above:No normal range established.BON [facility] VALLEY HOSPITALSodium, Random Uron 53-73-1128Yhbxvy (U) [Moles/Vol]154 mmol/LNormalMarietta Osteopathic ClinicComment on above: Result Comment: No normal range established.Performed By: #### IOCAL, BMP, CDP #### [facility] [facility] [address], [place] [id number] Youth Care Specialist: Afshin Mansfield MDEKG 12 LeadOrdered By: Huan Mayo on 37-63-6372Spwaqv Rmxt997ONWNPO [facility] [employer] Work Phone: Q-T [id number] [facility] HEALTH Work Phone: QRS Qsbhotok97 msTARAVISTA BEHAVIORAL HEALTH CENTERMediaCrossing Inc. [facility] HEALTH Work Phone: QTc Calculation (Tktt)470 msBON [facility] HEALTH Work Phone: R [id number] [facility]IEW [facility] [employer] Work Phone: T Sunnyside-59degreesMOUNTAIN VIEW REGIONAL [facility] HEALTH Work Phone: Ventricular [id number] [employer] Work Phone: BON [employer] Work Phone: ekG 12 Leadon 87-72-5236Gsgejm fibrillation with rapid ventricular response with premature ventricular or aberrantly conducted complexes Low voltage QRS 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) ACUTE [place] / STEMI Consider right ventricular involvement in acute inferior infarct Abnormal ECG When compared with ECG of 02-DEC-2021 03:02, T wave inversion no longer evident in Inferior leadsPN ST Huan Thrasher MD - 12/02/2021 Atrial fibrillation with rapid ventricular response with premature ventricular or aberrantly conducted complexes Low voltage QRS 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) ACUTE OH / STEMI Consider right ventricular involvement in acute inferior infarct Abnormal ECG When compared with ECG of 02-DEC-2021 03:02, T wave inversion no longer evident in Inferior leads TARAVISTA BEHAVIORAL HEALTH CENTERUQ Communications Work Phone: Magnesiumon 66-77-8296Cqfbfaudu [Mass/Vol]2.0 mg/dL Normal1.6-2.6[facility] Medical CenterComment on above:Performed By: #### JOEL, BMP, CDP #### [employer] [address] [place], [place] [id number] Youth Care Specialist: Afshin Mansfield MDMagnesium [Mass/Vol]2.0 mg/dL1.6 - 2.6 mg/dLBON [facility] TimeTrade SystemsNo Panel Informationon 44-88-3277NPJ [facility] Glucose Fingerstickon 94-01-4198Hwortdv [Mass/Vol]164 mg/dDEskg97 - 110 mg/dL [facility] TimeTrade SystemsInterpretation and review of laboratory resultsAbnormal CRITICAL ACCESS HOSPITALGlucose [Mass/Vol]220 mg/dLHigh 75 - 110 mg/dLBON [facility] TimeTrade SystemsInterpretation and review of laboratory resultsAbnormalCRITICAL ACCESS HOSPITALGlucose [Mass/Vol]197 mg/zRIlyf59 - 110 mg/dLBON [facility] VALLEY HOSPITALInterpretation and review of laboratory resultsAbnormalBON FREEM[facility] REGIONAL HEALTH SERVICESGlucose [Mass/Vol]188 mg/mSZzth04 - 110 mg/dLB[facility] Interpretation and review of laboratory resultsAbnormalDICKENSON COMMUNITY [facility]OSPITAL BON [facility] VALLEY HOSPITALPhosphoruson 17-50-8715Usvsekqwm [Mass/Vol]2.8 mg/dL2.5 - 4.5 mg/dLBON OHIO VALLEY HOSPITALPhosphorus, Inorg.on 22-28-1698Hfirbmhdrr, Inorg.2.8 mg/dLNormal2.5-4.5[facility] ClinicComment on above: Performed By: #### DALE MALDONADO, CDP #### [employer] [address] [place] [phone] Youth Care Specialist: Binta Westfall 08-08-5547Bsdzsbmc, High Sens15 ng/L Normal0-98M[facility] Osteopathic ClinicComment on above:Result Comment: High Sensitivity Troponin values cannot be compared with other Troponin methodologies. Patients with high levels of Biotin oral intake (i.e >5mg/day) may have falsely decreased Troponin levels. Samples collected within 8 hours of biotin intake may require additional information for diagnosis.Performed By: #### DALE MALDONADO, CDP #### [facility] [address] [place] [phone] Youth Care Specialist: Quinton Westfall High Dehkalzppxb14 ng/L0 - 22 ng/LBON OHIO VALLEY HOSPITALComment on above: High Sensitivity Troponin values cannot be compared with other Troponin methodologies. Patients with high levels of Biotin oral intake (i.e >5mg/day) may have falsely decreased Troponin levels. Samples collected within 8 hours of biotin intake may require additional information for diagnosis. [facility] HEALTHTroponin, High Sens15 ng/LNormal0-22[facility] ClinicComment on above:Result Comment: High Sensitivity Troponin values cannot be compared with other Troponin methodologies. Patients with high levels of Biotin oral intake (i.e >5mg/day) may have falsely decreased Troponin levels. Samples collected within 8 hours of biotin intake may require additional information for diagnosis.Performed By: #### JOEL, BMP, CDP #### [facility] [address] [place] [phone] Youth Care Specialist: Quinton Westfall, High Lcelbwjgust07 ng/L0 - 22 ng/LBON SECUQ CommunicationsComment on above: High Sensitivity Troponin values cannot be compared with other Troponin methodologies. Patients with high levels of Biotin oral intake (i.e >5mg/day) may have falsely decreased Troponin levels. Samples collected within 8 hours of biotin intake may require additional information for diagnosis. [facility] Eleutian TechnologyBasic Metabolic Panelon 62-56-6453Orbkv gap [Moles/Vol] 11 mmol/L9 - 17 mmol/LBON SECOURS Team My MobileY HEALTHCalcium [Mass/Vol]8.1 mg/dLLow8.6 - 10.4 mg/dLBON SEC[facility]RS MERCY HEALTHChloride [Moles/Vol]102 mmol/L98 - 107 mmol/LBON [facility] MERCY HEALTHCO2 [Moles/Vol]19 mmol/LLow20 - 31 mmol/LBON SECOURS Team My MobileY HEALTHCreatinine [Mass/Vol]0.76 mg/dL0.7 - 1.2 mg/dLBON SECOURS Team My MobileY HEALTHGFR >6060 - PINF mL/minBON SECOURS Team My MobileY HEALTHGFR Non->6060 - PINF mL/minBON SECOURS Team My MobileY HEALTHGFR/1.73 sq M.predicted MDRD (S/P/Bld) [Vol rate/Area][facility] [employer] [facility] on above:Average GFR for 70 or more years old: 75 mL/min/1.73sq m Chronic Kidney Disease: <60 mL/min/1.73sq m Kidney failure: <15 mL/min/1.73sq m eGFR calculated using average adult body mass. Additional eGFR calculator available at: http://www.Meta.[employer]/multiple_crcl_2012.htm Glucose [Mass/Vol]176 mg/gVYpxw23 - 99 mg/dLBON [facility] Interpretation and review of laboratory resultsAbnormalDICKENSON COMMUNITY [facility]OSPITAL Potassium [Moles/Vol]4.2 mmol/L3.7 - 5.3 mmol/LBON [facility] VALLEY HOSPITALSodium [Moles/Vol]132 mmol/YWzj660 - 144 mmol/LBON [facility] VALLEY HOSPITALUrea nitrogen (BldV) [Mass/Vol]16 mg/dL8 - 23 mg/dLBON FREEMAN REGIONAL HEALTH SERVICESBasic Metabolic Profon 12-01-2021(cont.)NormalMarietta Osteopathic ClinicComment on above:Result Comment: Average GFR for 70 or more years old: 75 mL/min/1.73sq m Chronic Kidney Disease: <60 mL/min/1.73sq m Kidney failure: <15 mL/min/1.73sq m eGFR calculated using average adult body mass. Additional eGFR calculator available at: http://www.Yammer/multiple_crcl_2011.htmPerformed By: #### CDP, BMP #### [employer] [address] [place] [address] Youth Care Specialist: Byron Westfall gap [Moles/Vol]11 mmol/LNormal9-17[facility] ClinicComment on above:Performed By: #### CDP, BMP #### [employer] [address] [place] [address] Youth Care Specialist: WOODROW Westfallalcium [Mass/Vol]8.1 mg/dLLow8.6-10.4[facility] ClinicComment on above:Performed By: #### CDP, BMP #### [employer] [address] [place] [address] Youth Care Specialist: WOODROW Westfallhloride [Moles/Vol]102 mmol/FErfkwn63-310ExzrhMarietta Osteopathic ClinicComment on above:Performed By: #### CDP, BMP #### [employer] [address] [place] [address] Youth Care Specialist: Afshin Mansfield MDCO2 [Moles/Vol]19 mmol/DWgv18-97YgtgdMarietta Osteopathic ClinicComment on above:Performed By: #### CDP, BMP #### [address] [address] Youth Care Specialist: Afshin Mansfield MDCreatinine [Mass/Vol]0.76 mg/dLNormal0.70-1.20 [facility] ClinicComment on above:Performed By: #### CDP, BMP #### [address] [address] Youth Care Specialist: Afshin Mansfield MDGFR, Amer>60Normal>60[facility] ClinicComment on above:Performed By: #### BEBO, BMP #### [address] [address] Youth Care Specialist: MELVIN Westfall,non Amer>60Normal>60[facility] ClinicComment on above:Performed By: #### BEBO, BMP #### [address] [address] Youth Care Specialist: Afshin Mansfield MDGlucose [Mass/Vol]176 mg/lZZsxs69-56DeeunCoast Plaza HospitalComment on above:Performed By: #### CDP, BMP #### [address] [address] Youth Care Specialist: Afshin Mansfield MDPotassium [Moles/Vol]4.2 mmol/LNormal3.7-5.3 [facility] Osteopathic ClinicComment on above:Performed By: #### CDP, BMP #### [address] [address] Youth Care Specialist: Afshin Mansfield MDSodium [Moles/Vol]132 mmol/SVgj678-258JxivkMarietta Osteopathic ClinicComment on above:Performed By: #### CDP, BMP #### [facility] [address] [place] [address] Youth Care Specialist: Afshin Mansfield MDUrea nitrogen [Mass/Vol]16 mg/dLNormal09 Castillo StreetComment on above:Performed By: #### CDP, BMP #### [facility] [address] [place], [place] [id number] Youth Care Specialist: Afshin Mansfield [facility] with Auto Differentialon [id number] Eos #0.00[facility] HEALTHAbsolute Immature Granulocyte0.00[facility] HEALTHAbsolute Lymph #1.35[facility] HEALTHAbsolute Mcduffie #1.80High [facility] HEALTHBasophils (Bld) [#/Vol]0.00 [...] (Bld)9 %Low24 - 44 %[facility] CENTERH (RBC) [Entitic mass]30.5 pg25.2 - 33.5 pgBON SECOURS MERCY COMMUNITY REGIONAL MEDICAL CENTERHC (RBC) [Mass/Vol]34.5 g/dL28.4 - 34.8 g/dLBON SECOURS MERCY HEALTHV (RBC) [Entitic vol]88.5 fL82.6 - 102.9 fLBON SECOURS MERCY HEALTHMonocytes/100 WBC (Bld)12 %High1 - 7 %[facility]CY HEALTHMorphology Callum (Bld) [Interp]Normal [facility] HOSPITALNRBC Automated0.00.0 per 100 WBCBON [facility] Platelet distribution width (Bld) [Ratio]13.8 %11.8 - 14.4 %[facility] HOSPITALPlatelet mean volume (Bld) [Entitic vol]9.6 fL8.1 - 13.5 fLBON [facility] VALLEY HOSPITALPlatelets (Bld) [#/Vol]235 10*3/uLBON [facility]IANCE COMMUNITY HOSPITALRBC (Bld) [#/Vol]5.11 10*6/uL4.21 - 5.77 m/uLBON [facility]IO VALLEY HOSPITALSegmented neutrophils/100 WBC (Bld)79 %High36 - 66 %[facility]UN[facility] HOSPITALSegs Absolute 11.85HighBON [facility]IO VALLEY HOSPITALWBC (Bld) [#/Vol]15.0 10*3/uLHighBON [facility]IO VALLEY HOSPITALBON SECAULTMAN ALLIANCE COMMUNITY HOSPITALCBC with Diffon [id number]. Basophil0.00 k/uLNormal0.0-0.2MercCoast Plaza HospitalComment on above:Performed By: #### BEBO, BMP #### [employer] [address] [place] [address] Youth Care Specialist: Virgil Westfall.Imm.Granulocyte0.00 k/uLNormal0.00-0.30[facility] Osteopathic ClinicComment on above:Performed By: #### BEBO, BMP #### [employer] [address] [place] [address] Youth Care Specialist: MDAbs. MalouNeutrophil (Seg)11.85 k/uLHigh1.8-7.7[facility] Osteopathic ClinicComment on above:Performed By: #### BEBO, BMP #### [employer] [address] [place] [address] Youth Care Specialist: Afshin Mansfield MDBasophils/100 WBC (Bld)0 %Normal0-2MercCoast Plaza HospitalComment on above:Performed By: #### BEBO, BMP #### [facility] [address] [place] [address] Youth Care Specialist: Afshin Mansfield MDEosinophils (Bld) [#/Vol]0.00 10*3/uLNormal 0.0-0.4[facility]opathic ClinicComment on above:Performed By: #### CDP, BMP #### [facility] [address] [place] [address] Youth Care Specialist: MINERVA Westfallosinophils/100 WBC (Bld)0 %Low1-4[facility] Osteopathic ClinicComment on above:Performed By: #### CDP, BMP #### [address] [address] Youth Care Specialist: Afshin Mansfield MDImmature granulocytes/100 WBC (Bld)0 %Normal0 [facility] ClinicComment on above:Performed By: #### CDP, BMP #### [address] [address] Youth Care Specialist: Vijay Westfallmphocytes (Bld) [#/Vol]1.35 10*3/uLNormal 1.0-4.8[facility] ClinicComment on above:Performed By: #### CDP, BMP #### [facility] [address] [place] [address] Youth Care Specialist: Vijay Westfallmphocytes/100 WBC (Bld)9 %Vid16-16ScjzcMarietta Osteopathic ClinicComment on above:Performed By: #### CDP, BMP #### [facility] [address] [place] [address] Youth Care Specialist: BRITTANY Westfallonocytes (Bld) [#/Vol]1.80 10*3/uLHigh0.1-0.8 [facility] ClinicComment on above:Performed By: #### CDP, BMP #### [facility] [address] [place] [address] Youth Care Specialist: BRITTANY Westfallonocytes/100 WBC (Bld)12 %High1-7[facility]opathic ClinicComment on above:Performed By: #### CDP, BMP #### [facility] [address] [place] [address] Youth Care Specialist: BRITTANY Westfallorphology Callum (Bld) [Interp]NormalNormalMerWatsonville Community Hospital– WatsonvilleComment on above:Performed By: #### CDP, BMP #### [facility] [address] [place] [address] Youth Care Specialist: Asfhin Mansfield MDNeutrophil (Seg)79 %Ardz47-27RidxsMarietta Osteopathic ClinicComment on above:Performed By: #### CDP, BMP #### [address] [address] Youth Care Specialist: Afshin Mansfield MDErythrocyte distribution width (RBC) [Ratio]13.8 %Npmjog35.8-14.4[facility] Osteopathic ClinicComment on above:Performed By: #### CDP, BMP #### [facility] [address] [place] [address] Youth Care Specialist: Afshin Mansfield MDHematocrit (Bld) [Volume fraction]45.2 %Normal 40.7-50.3[facility] Regional Medical CenterComment on above:Performed By: #### CDP, BMP #### [facility] [address] [place] [address] Youth Care Specialist: Afshin Mansfield MDHemoglobin (Bld) [Mass/Vol]15.6 g/dLNormal 13.0-17.0[facility] ClinicComment on above:Performed By: #### CDP, BMP #### [facility] [address] [place] [address] Youth Care Specialist: BRITTANY WestfallCH (RBC) [Entitic mass]30.5 hvUlxfvr01.2-33.5 [facility] ClinicComment on above:Performed By: #### CDP, BMP #### [address] [address] Youth Care Specialist: BRITTANY WestfallCHC (RBC) [Mass/Vol]34.5 g/qXDrqfat57.4-34.8 [facility] ClinicComment on above:Performed By: #### BEBO, BMP #### [address] [address] Youth Care Specialist: BRITTANY WestfallCV (RBC) [Entitic vol]88.5 dXNdcgbv12.6-102.9 [facility] ClinicComment on above:Performed By: #### BEBO, BMP #### [place] [address] Youth Care Specialist: VONDA WestfallBC Automated0.0 per 100 WBCNormal0.0[facility]opathic ClinicComment on above:Performed By: #### BEBO, BMP #### [address] [address] Youth Care Specialist: Ban Westfallteflor mean volume (Bld) [Entitic vol]9.6 fL Normal8.1-13.5[facility] Osteopathic ClinicComment on above:Performed By: #### CDP, BMP #### [address] [address] Youth Care Specialist: JOJO Westfalllatelets (Bld) [#/Vol]235 10*3/xPNeluue728-925 [facility] ClinicComment on above:Performed By: #### BEBO, BMP #### [address] [address] Youth Care Specialist: KEIKO WestfallBC (Bld) [#/Vol]5.11 10*6/uLNormal4.21-5.77 [facility] ClinicComment on above:Performed By: #### CDP, BMP #### [facility] [address] [place] [address] Youth Care Specialist: Afshin Mansfield MDWH[facility] ([facility] [#/Vol]15.0 10*3/uLHigh3.5-11.3Mtrihealthy [facility] Regional Medical CenterComment on above:Performed By: #### CDP, BMP #### [facility] [address] [place] [address] Youth Care Specialist: REYNA Westfall Complete 2D W Doppler W Coloron 12-01-2021 Transthoracic Echocardiography Report (TTE) Patient Name EDGAR Date of Study 11/30/2021 SHAHRZAD Date of 1945 Gender Male Age 76 year(s) Race Room Number 0122 Height: 73 inch, 185.42 cm Corporate ID [id number] Weight: 207 pounds, 93.9 kg # Patient Acct [id number] BSA: 2.18 m^2 BMI: 27.31 # kg/m^2 MR # [id number] [employer] Supervisor Rosmery Walsh Interpreting Physician Vicki Rob Fellow Referring Nurse Practitioner Interpreting Referring Physician Yolie Cabrera Fellow Type of Study TTE procedure:2D Echocardiogram, M-Mode, Doppler, Color Doppler, Bubble Study. Procedure Date Date: 11/30/2021 Start: 02:35 PM Study Location: [facility] Technical Quality: Adequate visualization Indications:Stroke. History [...] Height: 73 inch, 185.42 cm Corporate ID [id number] Weight: 207 pounds, 93.9 kg # Patient Acct [id number] BSA: 2.18 m^2 BMI: 27.31 # kg/m^2 MR # [id number] [employer] Super[employer] Rosmery Walsh Interpreting Physician Vicki Rob Fellow Referring Nurse Practitioner Interpreting Referring Physician Yolie Cabrera Type of Study TTE procedure:2D Echocardiogram, M-Mode, Doppler, Color Doppler, Bubble Study. Procedure Date Date: 11/30/2021 Start: 02:35 PM Study Location: [facility] Technical Quality: Adequate visualization Indications:Stroke. History [...] E' velocity:0.12 m/s Lateral Wall E/E':7.5 [facility] Work Phone: [facility] Work Phone: poc Glucose Fingerstickon [id number] [Mass/Vol] 132 mg/oROabh29 - 110 mg/dLBON [facility]IO VALLEY HOSPITALInterpretation and review of laboratory resultsAbnoMarshall County Healthcare Center Glucose [Mass/Vol]129 mg/rKQmsw48 - 110 mg/dLB[facility] Interpretation and review of laboratory resultsAbnormBon Secours St. Mary's HospitalGlucose [Mass/Vol]369 mg/oTNdod54 - 110 mg/dLB[facility] VALLEY HOSPITALInterpretation and review of laboratory resultsAbnormalCRITICAL ACCESS HOSPITALGlucose [Mass/Vol]196 mg/rDAkzi71 - 110 mg/dLB[facility] VALLEY HOSPITALInterpretation and review of laboratory results AbnormalCRITICAL ACCESS HOSPITALGlucose [Mass/Vol]181 mg/hTPtou29 - 110 mg/dLBON [facility]IO VALLEY HOSPITALInterpretation and review of laboratory resultsAbnormSentara Williamsburg [facility] Urinalysis w/ Microon [id number], SemiQt,UrNegativeNormalNEGMercy West Hills Regional Medical CenterComment on above:Performed By: #### UAMIC #### [employer] [facility] [place] [address] Youth Care Specialist: Lia Westfall, UrineLARGEAbnormalNEGMarietta Osteopathic ClinicComment on above:Performed By: #### UAMIC #### [address] [address] Youth Care Specialist: WOODROW Westfallasts2 TO 5 HYALINENormal0-8M[facility] Osteopathic ClinicComment on above:Result Comment: Reference range defined for non- centrifuged specimen.Performed By: #### UAMIC #### [address] [address] Youth Care Specialist: WOODROW Westfalllarity (U)ClearNormalCLEARMerWatsonville Community Hospital– WatsonvilleComment on above:Performed By: #### UAMIC #### [address] [address] Youth Care Specialist: WOODROW Westfallolor (U)YellowNormalYELMerWatsonville Community Hospital– WatsonvilleComment on above:Performed By: #### UAMIC #### [address] [address] Youth Care Specialist: Afshin Mansfield MDEpithelial cells LM Ql (Urine sed)0 TO 2Normal 0-5[facility] Osteopathic ClinicComment on above:Performed By: #### UAMIC #### [address] [address] Youth Care Specialist: Afshin Mansfield MDGlucose Ql (U)NegativeNormalNEGMarietta Osteopathic ClinicComment on above:Performed By: #### UAMIC #### [address] [address] Youth Care Specialist: Afshin Mansfield MDKetones Ql (U)TRACEAbnormalNEGMarietta Osteopathic ClinicComment on above:Performed By: #### UAMIC #### [address] [address] Youth Care Specialist: Afshin Mansfield MDLeukocyte esterase Test strip Ql (U)Negative NormalNEGMarietta Osteopathic ClinicComment on above:Performed By: #### UAMIC #### [address] [address] Youth Care Specialist: Rashard Westfalltrite,UrNegativeNormalNEGMarietta Osteopathic ClinicComment on above:Performed By: #### UAMIC #### [address] [address] Youth Care Specialist: JOJO Westfall,Ur5.8Zjlybf3.0-8.0[facility]opathic ClinicComment on above:Performed By: #### UAMIC #### [address] [address] Youth Care Specialist: JOJO Westfallrotein Ql (U)TRACEAbnormiaNEGMarietta Osteopathic ClinicComment on above:Performed By: #### UAMIC #### [address] [address] Youth Care Specialist: KRISTIAN Westfallpec. Banks,Ur1.814Rdcm0.005-1.030[facility] Osteopathic ClinicComment on above:Performed By: #### UAMIC #### [address] [address] Youth Care Specialist: Logan Westfall RBC's20 TO 55Pslgtv6-7UstxnMarietta Osteopathic ClinicComment on above:Result Comment: Reference range defined for non- centrifuged specimen.Performed By: #### UAMIC #### [address] [address] Youth Care Specialist: Logan Westfall WBC's2 TO 1Qfenlg3-8DfdkwMarietta Osteopathic ClinicComment on above:Performed By: #### UAMIC #### [address] [address] Youth Care Specialist: Chase Westfallbilinogen,UrNormalNormalNORMMarietta Osteopathic ClinicComment on above:Performed By: #### UAMIC #### [facility] [address] [place] [address] Youth Care Specialist: Afshin Mansfield MDUrinalysis with Microscopicon 12-01-2021 Bilirubin UrineNegativeNEGATIVEB[facility] SECOURS Team My MobileY HEALTHCasts UA2 TO 5 HYALINE Reference range defined for non-centrifuged specimen.[facility] Color, UAYellowYellowBON SECOURS MERCY HEALTHEpithelial Cells UA0 TO 2[facility] Team My MobileY HEALTHGlucose, UrNegativeNEGATIVEBON SECOURS [facility]Y [facility]ALTH Interpretation and review of laboratory resultsAbnormalBON SECOURS [facility] SYSTEMMicroCHIPS HEALTH Ketones Ql (U)TRACEAbnormalNEGATIVEBON SECOURS RevolvLeukocyte esterase Test strip Ql (U)NegativeNEGATIVEB[facility]RS Team My MobileY HEALTHNitrite, UrineNegative NEGATIVEBON SEC[facility]RS Counsyl HEALTHpH, UA5.55 - 8[facility] Counsyl HEALTHProtein, UATRACEAbnormalNEGATIVEBON SECOURS [facility]ALTH SYSTEMMicroCHIPS HEALTHRBC, UA20 TO 50B[facility] Counsyl HEALTHComment on above:Reference range defined for non-centrifuged specimen. Specific Banks, UA1.499Sggu3.005 - 1.03[facility] Team My MobileY HEALTHTurbidity UA ClearClearBON SEC[facility]RS Counsyl HEALTHUrine HgbLARGEAbnormalNEGATIVEBON SEC[facility]RS RevolvUrobilinogen, UrineNormalNormalB[facility] Counsyl HEALTHWBC, UA2 TO 5 [facility] Counsyl HEALTHBON SECOURS [facility] HEALTH SYSTEMMicroCHIPS HEALTHBasic Metabolic Panelon [id number] gap [Moles/Vol]11 mmol/L9 - 17 mmol/LBON SECOURS Counsyl HEALTH Calcium [Mass/Vol]7.7 mg/dLLow8.6 - 10.4 mg/dLB[facility] SECOURS MERCY HEALTHChloride [Moles/Vol]102 mmol/L98 - 107 mmol/LBON SECOURS Team My MobileY HEALTHCO2 [Moles/Vol]21 mmol/L20 - 31 mmol/LBON SECOURS MERCY HEALTHCreatinine [Mass/Vol]0.79 mg/dL0.7 - 1.2 mg/dLB[facility] Team My MobileY HEALTHGFR >6060 - PINF mL/minBON SECOURS Counsyl HEALTHGFR Non->6060 - PINF mL/minDICKENSON COMMUNITY HOSPITALGFR/1.73 sq M.predicted MDRD (S/P/Bld) [Vol rate/Area][facility]UNITY HOSPITALComment on above:Average GFR for 70 or more years old: 75 mL/min/1.73sq m Chronic Kidney Disease: <60 mL/min/1.73sq m Kidney failure: <15 mL/min/1.73sq m eGFR calculated using average adult body mass. Additional eGFR calculator available at: http://www.Yammer/Frogtek Bop_crcl_2012.htm Glucose [Mass/Vol]196 mg/uQVtgk40 - 99 mg/dLB[facility] Interpretation and review of laboratory resultsAbnormalDICKENSON COMMUNITY HOSPITAL Potassium [Moles/Vol]4.5 mmol/L3.7 - 5.3 mmol/LBON [facility] VALLEY HOSPITALSodium [Moles/Vol]134 mmol/TYas303 - 144 mmol/LBON [facility] HOSPITALUrea nitrogen (BldV) [Mass/Vol]17 mg/dL8 - 23 mg/dLBON FREEMAN REGIONAL HEALTH SERVICESBasic Metabolic Profon 26-71-0138Knwkazq [Mass/Vol]196 mg/dSCtbx71-93Pqllf [facility] Medical CenterComment on above:Performed By: #### DAVEY VEE, BMP #### [employer] [address] [place] [phone] Youth Care Specialist: Afshin Mansfield MD(cont.)[facility] Comment on above:Result Comment: Average GFR for 70 or more years old: 75 mL/min/1.73sq m Chronic Kidney Disease: <60 mL/min/1.73sq m Kidney failure: <15 mL/min/1.73sq m eGFR calculated using average adult body mass. Additional eGFR calculator available at: http://www.Yammer/Frogtek Bop_crcl_2011.htmPerformed By: #### MARIUSZ GLYHGB, BMP #### [employer] [address] [place] [phone] Youth Care Specialist: Afshin Mansfield MDAnion gap [Moles/Vol]11 mmol/LNormal9-17[facility] ClinicComment on above:Performed By: #### CBC, GLYHGB, BMP #### [facility] [address] [place] [address] Youth Care Specialist: Afshin Mansfield MDCalcium [Mass/Vol]7.7 mg/dLLow8.6-10.4[facility] ClinicComment on above:Performed By: #### CBC, GLYHGB, BMP #### [facility] [address] [place] [address] Youth Care Specialist: Afshin Mansfield MDChloride [Moles/Vol]102 mmol/QHucyca65-987GeojmMarietta Osteopathic ClinicComment on above:Performed By: #### CBC, GLYHGB, BMP #### [facility] [address] [place] [address] Youth Care Specialist: Afshin Mansfield MDCO2 [Moles/Vol]21 mmol/CMwnhdu46-94FirpdMarietta Osteopathic ClinicComment on above:Performed By: #### CBC, GLYHGB, BMP #### [facility] [address] [place] [address] Youth Care Specialist: Afshin Mansfield MDCreatinine [Mass/Vol]0.79 mg/dLNormal0.70-1.20 [facility] ClinicComment on above:Performed By: #### CBC, GLYHGB, BMP #### [facility] [address] [place] [address] Youth Care Specialist: MELVIN Westfall, Amer>60Normal>60MerWatsonville Community Hospital– WatsonvilleComment on above:Performed By: #### CBC, GLYHGB, BMP #### [facility] [address] [place] [address] Youth Care Specialist: Afshin Madoff, MDGFR,non Amer>60Normal>60[facility] ClinicComment on above:Performed By: #### CBC, GLYHGB, BMP #### [facility] [address] [place] [address] Youth Care Specialist: JOJO Westfallotassium [Moles/Vol]4.5 mmol/LNormal3.7-5.3 [facility] ClinicComment on above:Performed By: #### CBC, GLYHGB, BMP #### [facility] [address] [place] [address] Youth Care Specialist: Afshin Mansfield MDSodium [Moles/Vol]134 mmol/CGuw550-287AfbbeMarietta Osteopathic ClinicComment on above:Performed By: #### CBC, GLYHGB, BMP #### [facility] [address] [place] [address] Youth Care Specialist: Kati Westfall nitrogen [Mass/Vol]17 mg/dLNormal8-23[facility] ClinicComment on above:Performed By: #### CBC, GLYHGB, BMP #### [facility] [address] [place] [address] Youth Care Specialist: Afshin Mansfield [facility] with Auto Differentialon [id number] Eos #[facility] HEALTHAbsolute Immature Granulocyte0.12[facility] HEALTHAbsolute Lymph #1.09LowBON SEC[facility]RS MERCY HEALTHAbsolute Mcduffie #1.40HighBON SECOURS MERCY HEALTHBasophils AbsoluteBON SEC[facility]RS MERCY HEALTHBasophils/100 WBC (Bld)0 %0 - 2 %[facility]CY HEALTHEosinophils/100 WBC (Bld)0 %Low1 - 4 %[facility]CY HEALTHHematocrit (Bld) [Volume fraction]41.7 %40.7 - 50.3 %[facility] MERCY HEALTHHemoglobin (Bld) [Mass/Vol]13.9 g/dL13 - 17 g/dLBON SECOURS MERCY HEALTHImmature granulocytes/100 WBC (Bld)1 %Euqe0[facility] Interpretation and review of laboratory resultsAbnormalB[facility] Lymphocytes/100 WBC (Bld)8 %Low24 - 43 %[facility] HOSPITALH (RBC) [Entitic mass]29.6 pg25.2 - 33.5 pgBON ADENA HEALTH SYSTEMHC (RBC) [Mass/Vol] 33.3 g/dL28.4 - 34.8 g/dLBON ADENA HEALTH SYSTEMV (RBC) [Entitic vol]88.7 fL 82.6 - 102.9 fLBON [facility]IO VALLEY HOSPITALMonocytes/100 WBC (Bld)10 %3 - 12 %[facility]UN[facility] HOSPITALNRBC Automated0.00.0 per 100 WBCDICKENSON COMMUNITY HOSPITAL Platelet distribution width (Bld) [Ratio]14.0 %11.8 - 14.4 %D[facility]EN[facility] COMMUNITY HOSPITALPlatelet mean volume (Bld) [Entitic vol]10.2 fL8.1 - 13.5 fLDICKENSON COMMUNITY HOSPITALPlatelets (Bld) [#/Vol]230 10*3/uLBON OHIO VALLEY HOSPITALRBC (Bld) [#/Vol]4.70 10*6/uL4.21 - 5.77 m/uLDICKENSON COMMUNITY HOSPITALSegmented neutrophils/100 WBC (Bld)81 %High36 - 65 %DICKENSON COMMUNITY HOSPITALSegs Absolute 11.07HighBON OHIO VALLEY HOSPITALWBC (Bld) [#/Vol]13.7 10*3/uLHighBON FREEMAN REGIONAL HEALTH SERVICESCBC with Diffon 10-80-8625Tjl. Basophil<0.03 Normal0.00-0.20[facility] ClinicComment on above:Performed By: #### CBC, GLYHGB, BMP #### [employer] [address] [place], [place] [id number] Youth Care Specialist: Virgil Westfall. Eosinophil<0.52Rjonmy7.00-0.44[facility] ClinicComment on above:Performed By: #### CBC, GLYHGB, BMP #### [facility] [place] [address] Youth Care Specialist: MDAbs. MalouImm.Granulocyte0.12 k/uLNormal0.00-0.30[facility] ClinicComment on above:Performed By: #### MARIUSZ, GLYHGB, BMP #### [facility] [address] [place] [address] Youth Care Specialist: Virgil Westfall.Neutrophil (Seg)11.07 k/uLHigh1.50-8.10[facility] ClinicComment on above:Performed By: #### MARIUSZ, GLYHGB, BMP #### [facility] [employer] [address] [place] [address] Youth Care Specialist: Afshin Mansfield MDBasophils/100 WBC (Bld)0 %Normal0-2MScripps Mercy HospitalComment on above:Performed By: #### MARIUSZ, GLYHGB, BMP #### [facility] [address] [place] [address] Youth Care Specialist: Afshin Mansfield MDEosinophils/100 WBC (Bld)0 %Low1-4[facility] ClinicComment on above:Performed By: #### MARIUSZ GLYHGB, BMP #### [facility] [address] [place] [address] Youth Care Specialist: Afshin Mansfield MDErythrocyte distribution width (RBC) [Ratio]14.0 %Xaqqme30.8-14.4[facility] ClinicComment on above:Performed By: #### MARIUSZ, GLYHGB, BMP #### [facility] [address] [place] [address] Youth Care Specialist: Afshin Mansfield MDHematocrit (Bld) [Volume fraction]41.7 %Normal 40.7-50.3MercCoast Plaza HospitalComment on above:Performed By: #### CBC, GLYHGB, BMP #### [facility] [address] [place] [address] Youth Care Specialist: Afshin Mansfield MDHemoglobin (Bld) [Mass/Vol]13.9 g/dLNormal 13.0-17.0[facility] ClinicComment on above:Performed By: #### CBC, GLYHGB, BMP #### [facility] [address] [place] [address] Youth Care Specialist: Afshin Mansfield MDImmature granulocytes/100 WBC (Bld)1 %Syno3QggzrMarietta Osteopathic ClinicComment on above:Performed By: #### CBC, GLYHGB, BMP #### [facility] [address] [place] [address] Youth Care Specialist: Afshin Mansfield MDLymphocytes (Bld) [#/Vol]1.09 10*3/uLLow 1.10-3.70[facility] ClinicComment on above:Performed By: #### CBC, GLYHGB, BMP #### [facility] [address] [place] [address] Youth Care Specialist: Vijay Westfallmphocytes/100 WBC (Bld)8 %Ebh12-40MozmzMarietta Osteopathic ClinicComment on above:Performed By: #### CBC, GLYHGB, BMP #### [facility] [address] [place] [address] Youth Care Specialist: BRITTANY WestfallCH (RBC) [Entitic mass]29.6 uaYdaicc01.2-33.5 [facility] ClinicComment on above:Performed By: #### CBC, GLYHGB, BMP #### [facility] [address] [place] [address] Youth Care Specialist: BRITTANY WestfallCHC (RBC) [Mass/Vol]33.3 g/sOWiaagk40.4-34.8 [facility] ClinicComment on above:Performed By: #### CBC, GLYHGB, BMP #### [address] [address] Youth Care Specialist: BRITTANY WestfallCV (RBC) [Entitic vol]88.7 iLZqxuws71.6-102.9 [facility] ClinicComment on above:Performed By: #### CBC, GLYHGB, BMP #### [place] [address] Youth Care Specialist: BRITTANY Westfallonocytes (Bld) [#/Vol]1.40 10*3/uLHigh0.10-1.20 [facility] ClinicComment on above:Performed By: #### CBC, GLYHGB, BMP #### [place] [address] Youth Care Specialist: BRITTANY Westfallonocytes/100 WBC (Bld)10 %Normal3-12[facility] ClinicComment on above:Performed By: #### CBC, GLYHGB, BMP #### [place] [address] Youth Care Specialist: Pravin Westfallophil (Seg)81 %Kglm83-10SannbMarietta Osteopathic ClinicComment on above:Performed By: #### CBC, GLYHGB, BMP #### [place] [address] Youth Care Specialist: Afshin Mansfield MDNRBC Automated0.0 per 100 WBCNormal0.0Marietta Osteopathic ClinicComment on above:Performed By: #### CBC, GLYHGB, BMP #### [place] [address] Youth Care Specialist: JOJO Westfalllatelet mean volume (Bld) [Entitic vol]10.2 fL Normal8.1-13.5[facility] Osteopathic ClinicComment on above:Performed By: #### CBC, GLYHGB, BMP #### [facility] [address] [place] [address] Youth Care Specialist: Chilango Westfall ([facility]) [#/Vol]230 10*3/rYSvuhyf483-539 [facility] Osteopathic ClinicComment on above:Performed By: #### CBC, GLYHGB, BMP #### [facility] [address] [place] [address] Youth Care Specialist: CONOR Westfall ([facility]) [#/Vol]4.70 10*6/uLNormal4.21-5.77 [facility] Osteopathic ClinicComment on above:Performed By: #### CBC, GLYHGB, BMP #### [facility] [address] [place] [address] Youth Care Specialist: XANDER Westfall ([facility]) [#/Vol]13.7 10*3/uLHigh3.5-11.3Mtrihealthy [facility] Regional Medical CenterComment on above:Performed By: #### CBC, GLYHGB, BMP #### [facility] [address] [place] [address] Youth Care Specialist: EDWIGE Westfall 12 LeadOrdered By: Vicki Rob on 32-16-2062Xoxkot Flds12FUWDVO [employer] Work Phone: P Csps51pznmwcxIYIPurple Work Phone: P-R [id number] msBON [employer] Work Phone: [phone] Msxtlply469 msBON [employer] Work Phone: QRS Ymkdqfye67 msBON [employer] Work Phone: QTc Calculation (Bazett)480 msBON [employer] Work Phone: R Rxvr75gysnufkITM [employer] Work Phone: T [id number] [employer] Work Phone: Ventricular [id number] [facility] [employer] Work Phone: BON [facility] Team [employer] Mobile [employer] Work Phone: EKG 12 Leadon [id number] sinus rhythm Low voltage QRS Inferior infarct , age undetermined Abnormal ECG No previous ECGs availableHAVEN BEHAVIORAL HOSPITAL OF EASTERN PENNSYLVANIAVicki Lange MD - 11/30/2021 Normal sinus rhythm Low voltage QRS Inferior infarct , age undetermined Abnormal ECG No previous ECGs available [facility] BEH[facility]ALTH CENTERUQ Communications Work Phone: pOC Glucose Fingerstickon 08-55-9071Pshcdog [Mass/Vol] 160 mg/jMElcp81 - 110 mg/dLBON NORTHERN COCHISE COMMUNITY HOSPITALMediaCrossing Inc. [facility] SYSTEMJRapidInterpretation and review of laboratory resultsAbnormSentara Williamsburg Regional Medical [facility] Glucose [Mass/Vol]181 mg/lQMpcs96 - 110 mg/dLBON [facility] Interpretation and review of laboratory resultsAbnormMary [facility] BON [facility] Team My Mobile TimeTr[employer] SystemsGlucose [Mass/Vol]182 mg/sHSxow96 - 110 mg/dLBON NORTHER[facility] COCHISE COMMUNITY HOSPITALMediaCrossing Inc. [facility] SYSTEMJRapidInterpretation and review of laboratory resultsAbnoLifePoint HealthMicroCHIPS [facility]OSPITALBasic Metabolic Panelon 92-39-2130Jwoqa gap [Moles/Vol]12 mmol/L9 - 17 mmol/LBON NORTHERN COCHISE COMMUNITY HOSPITALMediaCrossing Inc. [facility]ALTH SYSTEMJRapidCalcium [Mass/Vol]8.3 mg/dLLow8.6 - 10.4 mg/dLBON NORTHERN COCHISE COMMUNITY HOSPITALMediaCrossing Inc. [facility] SYSTEMJRapidChloride [Moles/Vol]101 mmol/L98 - 107 mmol/LBON NORTHER[facility] CO[facility]ISE COMMUNITY HOSPITALMediaCrossing Inc. [facility] SYSTEMJRapidCO2 [Moles/Vol]20 mmol/L20 - 31 mmol/LBON NORTHERN COCHISE COMMUNITY HOSPITALUQ CommunicationsCreatinine [Mass/Vol]0.89 mg/dL0.7 - 1.2 mg/dLBON NORTHERN COCHISE COMMUNITY HOSPITALMediaCrossing Inc. [facility] SYSTEMJRapidGFR >6060 - PINF mL/minTARAVISTA BEHAVIORAL HEALTH CENTERMediaCrossing Inc. [facility] HOSPITALGFR Non->6060 - PINF mL/minBON OHIO VALLEY HOSPITALGFR/1.73 sq M.predicted MDRD (S/P/Bld) [Vol rate/Area][facility] HOSPITALComment on above:Average GFR for 70 or more years old: 75 mL/min/1.73sq m Chronic Kidney Disease: <60 mL/min/1.73sq m Kidney failure: <15 mL/min/1.73sq m eGFR calculated using average adult body mass. Additional eGFR calculator available at: http://www.Yammer/multiple_crcl_2012.htm Glucose [Mass/Vol]198 mg/bZByin23 - 99 mg/dLBON [facility] Interpretation and review of laboratory resultsAbnormalDICKENSON COMMUNITY HOSPITAL Potassium [Moles/Vol]4.4 mmol/L3.7 - 5.3 mmol/LBON OHIO VALLEY HOSPITALSodium [Moles/Vol]133 mmol/FFvb398 - 144 mmol/LBON [facility] VALLEY HOSPITALUrea nitrogen (BldV) [Mass/Vol]14 mg/dL8 - 23 mg/dLBON [facility]REEMAN REGIONAL HEALTH SERVICESBasic Metabolic Profon 11-29-2021(cont.)NormalMarietta Osteopathic ClinicComment on above:Result Comment: Average GFR for 70 or more years old: 75 mL/min/1.73sq m Chronic Kidney Disease: <60 mL/min/1.73sq m Kidney failure: <15 mL/min/1.73sq m eGFR calculated using average adult body mass. Additional eGFR calculator available at: http://www.Yammer/Frogtek Bop_crcl_2011.htmPerformed By: #### DALE MALDONADO, CDP #### [facility] [address] [place] [address] Youth Care Specialist: Byron Westfall gap [Moles/Vol]12 mmol/LNormal9-17[facility] Osteopathic ClinicComment on above:Performed By: #### DALE MALDONADO, CDP #### [facility] [address] [place] [address] Youth Care Specialist: Afshin Madoff, MDCalcium [Mass/Vol]8.3 mg/dLLow8.6-10.4[facility] Osteopathic ClinicComment on above:Performed By: #### DALE MALDONADO, CDP #### [facility] [employer] [address] [place] [address] Youth Care Specialist: WOODROW Westfallhloride [Moles/Vol]101 mmol/FJpdalh45-416ZqkneMarietta Osteopathic ClinicComment on above:Performed By: #### DALE MALDONADO, CDP #### [facility] [employer] [address] [place] [address] Youth Care Specialist: Afshin Mansfield MDCO2 [Moles/Vol]20 mmol/RFarxbo88-89XylpvMarietta Osteopathic ClinicComment on above:Performed By: #### DALE MALDONADO, CDP #### [facility] [address] [place] [address] Youth Care Specialist: WOODROW Westfallreatinine [Mass/Vol]0.89 mg/dLNormal0.70-1.20 [facility] Osteopathic ClinicComment on above:Performed By: #### DALE MALDONADO, CDP #### [facility] [address] [place] [address] Youth Care Specialist: Afshin Mansfield MDGFR, Amer>60Normal>60[facility] Osteopathic ClinicComment on above:Performed By: #### DALE MALDONADO, CDP #### [facility] [address] [place] [address] Youth Care Specialist: Afshin Mansfield MDGFR,non Amer>60Normal>60[facility] Osteopathic ClinicComment on above:Performed By: #### DALE MALDONADO, CDP #### [facility] [address] [place] [address] Youth Care Specialist: Afshin Mansfield MDGlucose [Mass/Vol]198 mg/jTLybc16-49FmcqpScripps Mercy HospitalComment on above:Performed By: #### DALE MALDONADO, CDP #### [facility] [address] [place] [address] Youth Care Specialist: JOJO Westfallotassium [Moles/Vol]4.4 mmol/LNormal3.7-5.3 [facility] ClinicComment on above:Performed By: #### DALE MALDONADO, CDP #### [facility] [address] [place] [address] Youth Care Specialist: KRISTIAN Westfallodium [Moles/Vol]133 mmol/LBrw310-308AgaojMarietta Osteopathic ClinicComment on above:Performed By: #### DALE MALDONADO, CDP #### [facility] [address] [place] [address] Youth Care Specialist: Afshin Mansfield MDUrea nitrogen [Mass/Vol]14 mg/dLNormal8-23[facility] Osteopathic ClinicComment on above:Performed By: #### DALE MALDONADO, CDP #### [facility] [address] [place] [address] Youth Care Specialist: Afshin Mansfield [facility] with Auto Differentialon 23-06-4543Jjsnovii Eos #0.00B[facility] MERCY HEALTHAbsolute Immature Granulocyte0.19[facility] HEALTHAbsolute Lymph #0.57LowBON SECOURS MERCY HEALTHAbsolute Mcduffie #1.33 HighBON SECOURS MERCY HEALTHBasophils (Bld) [#/Vol]0.00 10*3/uLBON SECOURS MERCY HEALTHBasophils/100 WBC (Bld)0 %0 - 2 %[facility] HEALTHEosinophils/100 WBC (Bld)0 %Low1 - 4 %[facility]CY HEALTHHematocrit (Bld) [Volume fraction] 40.4 %Low40.7 - 50.3 %[facility]CY HEALTHHemoglobin (Bld) [Mass/Vol]13.6 g/dL13 - 17 g/dLBON SECOURS MERCY HEALTHImmature granulocytes/100 WBC (Bld)1 % Tmxe1EGH [facility] VALLEY HOSPITALInterpretation and review of laboratory results AbnormalBON OHIO VALLEY HOSPITALLymphocytes/100 WBC (Bld)3 %Low24 - 43 %BON [facility]ALTH SYSTEMH (RBC) [Entitic mass]30.5 pg25.2 - 33.5 pgBON ADENA HEALTH SYSTEMHC (RBC) [Mass/Vol]33.7 g/dL28.4 - 34.8 g/dLBON SECTWIN CITY HOSPITALV (RBC) [Entitic vol]90.6 fL82.6 - 102.9 fLDICKENSON COMMUNITY HOSPITAL Monocytes/100 WBC (Bld)7 %3 - 12 %BON [facility]LEY HOSPITALMorphology Callum (Bld) [Interp]NormalDICKENSON COMMUNITY HOSPITALNRBC Automated0.00.0 per 100 WBCBON OHIO VALLEY HOSPITALPlatelet distribution width (Bld) [Ratio]13.7 %11.8 - 14.4 % BON [facility] VALLEY HOSPITALPlatelet mean volume (Bld) [Entitic vol]9.9 fL8.1 - 13.5 fLDICKENSON COMMUNITY HOSPITALPlatelets (Bld) [#/Vol]250 10*3/uLDICKENSON COMMUNITY HOSPITALRBC (Bld) [#/Vol]4.46 10*6/uL4.21 - 5.77 m/uLDICKENSON COMMUNITY HOSPITAL Segmented neutrophils/100 WBC (Bld)89 %High36 - 65 %BON [facility] VALLEY HOSPITALSegs Bigsborb84.91HighDICKENSON COMMUNITY HOSPITALWBC (Bld) [#/Vol]19.0 10*3/uLHighDICKENSON COMMUNITY HOSPITALBON [facility]IO VALLEY HOSPITALCBC with Diffon 30-80-3732Eor. Basophil0.00 k/uLNormal0.00-0.20[facility] Osteopathic ClinicComment on above:Performed By: #### DALE MALDONADO, CDP #### [facility] [address] [place] [address] Youth Care Specialist: Virgil Westfall.Imm.Granulocyte0.19 k/uLNormal0.00-0.30[facility] Osteopathic ClinicComment on above:Performed By: #### DALE MALDONADO, CDP #### [facility] [address] [place] [address] Youth Care Specialist: Virgil Westfall.Neutrophil (Seg)16.91 k/uLHigh1.50-8.10[facility] ClinicComment on above:Performed By: #### DALE MALDONADO, CDP #### [facility] [address] [place] [address] Youth Care Specialist: Afshin Mansfield MDBasophils/100 WBC (Bld)0 %Normal0-2MercCoast Plaza HospitalComment on above:Performed By: #### DALE MALDONADO, CDP #### [facility] [address] [place] [address] Youth Care Specialist: Afshin Mansfield MDEosinophils (Bld) [#/Vol]0.00 10*3/uLNormal 0.00-0.44[facility] ClinicComment on above:Performed By: #### DALE MALDONADO, CDP #### [facility] [address] [place] [address] Youth Care Specialist: Afshin Mansfield MDEosinophils/100 WBC (Bld)0 %Low1-4[facility]opathic ClinicComment on above:Performed By: #### DALE MALDONADO, CDP #### [facility] [address] [place] [address] Youth Care Specialist: Afshin Mansfield MDImmature granulocytes/100 WBC (Bld)1 %Yozr0NgwwuMarietta Osteopathic ClinicComment on above:Performed By: #### DALE MALDONADO, CDP #### [facility] [address] [place] [address] Youth Care Specialist: Afshin Mansfield MDLymphocytes (Bld) [#/Vol]0.57 10*3/uLLow 1.10-3.70[facility] ClinicComment on above:Performed By: #### DALE MALDONADO, CDP #### [facility] [address] [place] [address] Youth Care Specialist: Afshin Mansfield MDLymphocytes/100 WBC (Bld)3 %Gwc53-37RcwrvMarietta Osteopathic ClinicComment on above:Performed By: #### DALE MALDONADO, CDP #### [facility] [address] [place] [address] Youth Care Specialist: Afshin Mansfield MDMonocytes (Bld) [#/Vol]1.33 10*3/uLHigh0.10-1.20 [facility] ClinicComment on above:Performed By: #### DALE MALDONADO, CDP #### [facility] [address] [place] [address] Youth Care Specialist: BRITTANY Westfallonocytes/100 WBC (Bld)7 %Normal3-12[facility]opathic ClinicComment on above:Performed By: #### DALE MALDONADO, CDP #### [facility] [address] [place] [address] Youth Care Specialist: BRITTANY Westfallorphology Callum (Bld) [Interp]NormalNormalMarietta Osteopathic ClinicComment on above:Performed By: #### DALE MALDONADO, CDP #### [facility] [address] [place] [address] Youth Care Specialist: Afshin Mansfield MDNeutrophil (Seg)89 %Qdnj41-69EisxwMarietta Osteopathic ClinicComment on above:Performed By: #### DALE MALDONADO, CDP #### [facility] [address] [place] [address] Youth Care Specialist: Afshin Mansfield MDErythrocyte distribution width (RBC) [Ratio]13.7 %Jpzrwk53.8-14.4[facility]opathic ClinicComment on above:Performed By: #### DALE MALDONADO, CDP #### [facility] [address] [place] [address] Youth Care Specialist: Afshin Mansfield MDHematocrit (Bld) [Volume fraction]40.4 %Low 40.7-50.3[facility] Medical CenterComment on above:Performed By: #### DALE MALDONADO, CDP #### [address] [address] Youth Care Specialist: Afshin Mansfield MDHemoglobin (Bld) [Mass/Vol]13.6 g/dLNormal 13.0-17.0[facility] ClinicComment on above:Performed By: #### DALE MALDONADO, CDP #### [address] [address] Youth Care Specialist: BRITTANY WestfallCH (RBC) [Entitic mass]30.5 rpBgrmcp23.2-33.5 [facility] ClinicComment on above:Performed By: #### DALE MALDONADO, CDP #### [address] [address] Youth Care Specialist: BRITTANY WestfallCHC (RBC) [Mass/Vol]33.7 g/dUMxlxio83.4-34.8 [facility] ClinicComment on above:Performed By: #### DALE MALDONADO, CDP #### [address] [address] Youth Care Specialist: BRITTANY WestfallCV (RBC) [Entitic vol]90.6 jXAtwzox47.6-102.9 [facility] ClinicComment on above:Performed By: #### DALE MALDONADO, CDP #### [facility] [address] [place] [address] Youth Care Specialist: Afshin Mansfield MDNRBC Automated0.0 per 100 WBCNormal0.0[facility] ClinicComment on above:Performed By: #### DALE MALDONADO, CDP #### [facility] [address] [place] [address] Youth Care Specialist: Courtney Westfall mean volume (Bld) [Entitic vol]9.9 fL Normal8.1-13.5[facility]opathic ClinicComment on above:Performed By: #### DALE MALDONADO, CDP #### [facility] [address] [place] [address] Youth Care Specialist: Ban Westfalltemelissa (Bld) [#/Vol]250 10*3/kMJaimmp812-899 [facility] ClinicComment on above:Performed By: #### DALE MALDONADO, CDP #### [facility] [address] [place] [address] Youth Care Specialist: KEIKO WestfallBC (Bld) [#/Vol]4.46 10*6/uLNormal4.21-5.77 [facility] ClinicComment on above:Performed By: #### DALE MALDONADO, CDP #### [facility] [address] [place] [address] Youth Care Specialist: XANDER Westfall (Bld) [#/Vol]19.0 10*3/uLHigh3.5-11.3MScripps Mercy HospitalComment on above:Performed By: #### DALE MALDONADO, CDP #### [facility] [address] [place] [address] Youth Care Specialist: Afshin Mansfield MDCT HEAD WO CONTRASTon 15-42-0006RC HEAD WO CONTRASTEXAMINATION: CT OF THE HEAD [...] Signed by: Anders Shepard MD 11/29/21 Final resultNormalMerSHC Specialty Hospitalimilar 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 Similar punctate focus of presumed hemorrhage. [facility] CONSOLIDATEDEXAMINATION: CT OF THE HEAD [...] of the visualized skull or soft tissues. [facility] Anders Dunlap MD - 11/29/2021 [...] shift. Similar punctate focus of presumed hemorrhage. [facility] [employer] Work Phone: [facility] [employer] Work Phone: radiology Study observation (narrative)[facility] [employer] Work Phone: calcium, [employer]icon 09-18-0319Ocoguie [Moles/Vol]1.07 mmol/LLow1.13-1.33[facility] Medical CenterComment on above:Performed By: #### JOEL, BMP, CDP #### [facility] [address] [place] [address] Youth Care Specialist: WOODROW Westfallalcium, Ionizedon 65-05-2068Dtawfec, Ionized 1.07 mmol/LLow1.13 - 1.33 mmol/LBON [facility]IO VALLEY HOSPITALInterpretation and review of laboratory resultsAbnormalBON FREEMAN REGIONAL HEALTH SERVICESMagnesiumon 40-64-6543Ywckxyzjt [Mass/Vol]2.6 mg/dLNormal1.6-2.6[facility] Medical CenterComment on above:Performed By: #### IOCAL, BMP, CDP #### [facility] [address] [place] [address] Youth Care Specialist: Gucci Westfallgnesium [Mass/Vol]2.6 mg/dL1.6 - 2.6 mg/dLBON [facility] Glucose Fingerstickon 11-29-2021 Glucose [Mass/Vol]199 mg/dQIcic14 - 110 mg/dLBON [facility] Interpretation and review of laboratory resultsAbnormalPIONEER COMMUNITY HOSPITAL OF PATRICKGlucose [Mass/Vol]211 mg/wNTjwl99 - 110 mg/dLBON [facility]IO VALLEY HOSPITALInterpretation and review of laboratory resultsAbnormalCRITICAL ACCESS HOSPITALGlucose [Mass/Vol]213 mg/hAFolc82 - 110 mg/dLBON [facility]IO VALLEY HOSPITALInterpretation and review of laboratory results AbnormalBON FREEMAN REGIONAL HEALTH SERVICESGlucose [Mass/Vol]195 mg/dOIaaj03 - 110 mg/dLBON [facility] VALLEY HOSPITALInterpretation and review of laboratory resultsAbnormalCRITICAL ACCESS HOSPITAL Glucose [Mass/Vol]205 mg/tKTjaj53 - 110 mg/dLBON [facility] Interpretation and review of laboratory resultsAbnormBon Secours St. Mary's HospitalBasic Metabolic Profon 11-28-2021(cont.)[facility] HospitalComment on above:Result Comment: Average GFR for 70 or more years old: 75 mL/min/1.73sq m Chronic Kidney Disease: <60 mL/min/1.73sq m Kidney failure: <15 mL/min/1.73sq m eGFR calculated using average adult body mass. Additional eGFR calculator available at: http://www.Meta.[employer]/multiple_crcl_2012.htmPerformed By: #### CBC, GLYHGB, BMP #### [facility] [address], [place] [id number] Youth Care Specialist: Afshin Madoff, MDAnion gap [Moles/Vol]15 mmol/LNormal9-17[facility] ClinicComment on above:Performed By: #### CBC, GLYHGB, BMP #### [facility] [address] [place] [address] Youth Care Specialist: Afshin Mansfield MDCalcium [Mass/Vol]8.1 mg/dLLow8.6-10.4[facility] ClinicComment on above:Performed By: #### CBC, GLYHGB, BMP #### [facility] [address] [place] [address] Youth Care Specialist: Afshin Mansfield MDChloride [Moles/Vol]95 mmol/VLux67-835OzhliMarietta Osteopathic ClinicComment on above:Performed By: #### CBC, GLYHGB, BMP #### [facility] [address] [place] [address] Youth Care Specialist: Afshin Mansfield MDCO2 [Moles/Vol]21 mmol/QPtkrzi00-60OpbvwMarietta Osteopathic ClinicComment on above:Performed By: #### CBC, GLYHGB, BMP #### [facility] [address] [place] [address] Youth Care Specialist: Afshin Mansfield MDCreatinine [Mass/Vol]0.94 mg/dLNormal0.70-1.20 [facility] ClinicComment on above:Performed By: #### CBC, GLYHGB, BMP #### [facility] [address] [place] [address] Youth Care Specialist: MELVIN Westfall, Amer>60Normal>60[facility] ClinicComment on above:Performed By: #### CBC, GLYHGB, BMP #### [facility] [address] [place] [address] Youth Care Specialist: MELVIN Westfall,non Amer>60Normal>60[facility] ClinicComment on above:Performed By: #### CBC, GLYHGB, BMP #### [facility] [address] [place] [address] Youth Care Specialist: Afshin Mansfield MDGlucose [Mass/Vol]230 mg/zPXwoy16-95SbrzmScripps Mercy HospitalComment on above:Performed By: #### CBC, GLYHGB, BMP #### [facility] [address] [place] [address] Youth Care Specialist: JOJO Westfallotassium [Moles/Vol]4.2 mmol/LNormal3.7-5.3 [facility] ClinicComment on above:Performed By: #### MARIUSZ, GLYHGB, BMP #### [facility] [address] [place] [address] Youth Care Specialist: KRISTIAN Westfallodium [Moles/Vol]131 mmol/OQow327-960FhekiMarietta Osteopathic ClinicComment on above:Performed By: #### MARIUSZ, GLYHGB, BMP #### [facility] [address] [place] [address] Youth Care Specialist: Afshin Mansfield MDUrea nitrogen [Mass/Vol]10 mg/dLNormal8-23[facility] ClinicComment on above:Performed By: #### MARIUSZ, GLYHGB, BMP #### [facility] [address] [place] [address] Youth Care Specialist: Afshin Mansfield MDBasic metabolic panelon 27-89-9650Numvg gap [Moles/Vol]15 mmol/L9 - 17 mmol/LBON SECOURS MERCY HEALTHCalcium [Mass/Vol]8.1 mg/dLLow8.6 - 10.4 mg/dLBON [facility]RS MERCY HEALTHChloride [Moles/Vol]95 mmol/LLow 98 - 107 mmol/LBON SECOURS MERCY HEALTHCO2 [Moles/Vol]21 mmol/L20 - 31 mmol/LBON [facility]OURS MERCY HEALTHCreatinine [Mass/Vol]0.94 mg/dL0.7 - 1.2 mg/dLBON OHIO VALLEY HOSPITALGFR >6060 - PINF mL/minBON [facility]IO VALLEY HOSPITALGFR Non->6060 - PINF mL/minDICKENSON COMMUNITY HOSPITALGFR/1.73 sq M.predicted MDRD (S/P/Bld) [Vol rate/Area]MIRA [facility] HOSPITALComment on above:Average GFR for 70 or more years old: 75 mL/min/1.73sq m Chronic Kidney Disease: <60 mL/min/1.73sq m Kidney failure: <15 mL/min/1.73sq m eGFR calculated using average adult body mass. Additional eGFR calculator available at: http://www.Yammer/multiple_crcl_2011.htm Glucose [Mass/Vol]230 mg/pDUedm89 - 99 mg/dLBON [facility] Interpretation and review of laboratory resultsAbnoCumberland Hospital Potassium [Moles/Vol]4.2 mmol/L3.7 - 5.3 mmol/LBON OHIO VALLEY HOSPITALSodium [Moles/Vol]131 mmol/MXfi937 - 144 mmol/LBON [facility]IO VALLEY HOSPITALUrea nitrogen (BldV) [Mass/Vol]10 mg/dL8 - 23 mg/dLBON FREEMAN REGIONAL HEALTH SERVICESC-Reactive Proteinon 56-11-2346BYJ [Mass/Vol]13.7 mg/LHigh0.0-5.0[facility] ClinicComment on above:Performed By: #### JOEL, BMP, CDP #### [facility] [address] [place] [address] Youth Care Specialist: WOODROW WestfallRP [Mass/Vol]13.7 mg/LHigh0 - 5 mg/LBON [facility]IO VALLEY HOSPITALInterpretation and review of laboratory resultsAbnormalCRITICAL ACCESS HOSPITALCBCon 83-05-2530Wckztsptsnc distribution width (RBC) [Ratio]13.6 %Zipcmn32.8-14.4[facility]opathic ClinicComment on above:Performed By: #### CBC, GLYHGB, BMP #### [address] [address] Youth Care Specialist: Afshin Mansfield MDHematocrit (Bld) [Volume fraction]40.1 %Low 40.7-50.3MScripps Mercy HospitalComment on above:Performed By: #### CBC, GLYHGB, BMP #### [address] [address] Youth Care Specialist: Afshin Mansfield MDHemoglobin (Bld) [Mass/Vol]13.9 g/dLNormal 13.0-17.0[facility] ClinicComment on above:Performed By: #### CBC, GLYHGB, BMP #### [address] [address] Youth Care Specialist: BRITTANY WestfallCH (RBC) [Entitic mass]30.2 anOdftwf28.2-33.5 [facility] ClinicComment on above:Performed By: #### CBC, GLYHGB, BMP #### [address] [address] Youth Care Specialist: BRITTANY WestfallCHC (RBC) [Mass/Vol]34.7 g/wFRkpwhw05.4-34.8 [facility] ClinicComment on above:Performed By: #### CBC, GLYHGB, BMP #### [address] [address] Youth Care Specialist: BRITTANY WestfallCV (RBC) [Entitic vol]87.0 fJWazvnm42.6-102.9 [facility] ClinicComment on above:Performed By: #### CBC, GLYHGB, BMP #### [address] [address] Youth Care Specialist: Afshin Mansfield MDNRBC Automated0.0 per 100 WBCNormal0.0Marietta Osteopathic ClinicComment on above:Performed By: #### CBC, GLYHGB, BMP #### [facility] [address] [place] [address] Youth Care Specialist: Courtney Westfall mean volume (Bld) [Entitic vol]10.1 fL Normal8.1-13.5M[facility] Osteopathic ClinicComment on above:Performed By: #### CBC, GLYHGB, BMP #### [facility] [address] [place] [address] Youth Care Specialist: Chilango Westfall (Bld) [#/Vol]222 10*3/cKCmmgql645-197 [facility] Osteopathic ClinicComment on above:Performed By: #### CBC, GLYHGB, BMP #### [facility] [address] [place] [address] Youth Care Specialist: KEIKO WestfallBC (Bld) [#/Vol]4.61 10*6/uLNormal4.21-5.77 [facility] Osteopathic ClinicComment on above:Performed By: #### MARIUSZ, GLYHGB, BMP #### [facility] [address] [place] [address] Youth Care Specialist: Afshin Mansfield MDWBC (Bld) [#/Vol]13.5 10*3/uLHigh3.5-11.3MScripps Mercy HospitalComment on above:Performed By: #### CBC, GLYHGB, BMP #### [facility] [place] [address] Youth Care Specialist: Afshin Mansfield MDHematocrit (Bld) [Volume fraction]40.1 %Low40.7 - 50.3 %[facility] HOSPITALHemoglobin (Bld) [Mass/Vol]13.9 g/dL13 - 17 g/dL [facility] HOSPITALInterpretation and review of laboratory resultsAbnormal [facility]ALTHMCH (RBC) [Entitic mass]30.2 pg25.2 - 33.5 pgBON ADENA HEALTH SYSTEMHC (RBC) [Mass/Vol]34.7 g/dL28.4 - 34.8 g/dLBON ADENA HEALTH SYSTEMV (RBC) [Entitic vol]87.0 fL82.6 - 102.9 fLDICKENSON COMMUNITY HOSPITALNRBC Automated0.00.0 per 100 WBCBON OHIO VALLEY HOSPITALPlatelet distribution width (Bld) [Ratio]13.6 %11.8 - 14.4 %BON [facility] VALLEY HOSPITALPlatelet mean volume (Bld) [Entitic vol]10.1 fL8.1 - 13.5 fLMOUNTAIN VIEW REGIONAL MEDICAL [facility]ENTER HEALTHPlatelets (Bld) [#/Vol]222 10*3/uLDICKENSON COMMUNITY HOSPITALRBC (Bld) [#/Vol]4.61 10*6/uL4.21 - 5.77 m/uLDICKENSON COMMUNITY HOSPITALWBC (Bld) [#/Vol]13.5 10*3/uLHighBON FREEMAN REGIONAL HEALTH SERVICESCBC AUTO DIFFon [id number] #0.0 103/ul Normal0.0-0.1The Berger HospitalComment on above:Performed By: #### HSTROPN, CMP, CRP #### [facility] [address] [address] [address] Sea PughBasophils/100 WBC (Bld)0.3 %Normal0.2-2.0[facility] Comment on above:Performed By: #### HSTROPN, CMP, CRP #### [facility] [address] [address] [address] Sea Torre #0.1 103/ulNormal0.0-0.7The Berger HospitalComment on above: Performed By: #### HSTROPN, CMP, CRP #### [facility] [address] [address] [address] Sea Fordosinophils/100 WBC (Bld)0.8 %Critically low0.9-7.0The [place] HospitalComment on above:Performed By: #### HSTROPN, CMP, CRP #### [facility] [address] [address] [address] Sea Fordrythrocyte distribution width (RBC) [Ratio]13.6 %Mpkgmk21.0-15.0 The Berger HospitalComment on above:Performed By: #### HSTROPN, CMP, CRP #### [facility] [address] [place] [address] Dr. Sea PughHematocrit (Bld) [Volume fraction]41.0 %Critically low42.0-54.0 The Berger HospitalComment on above:Performed By: #### HSTROPN, CMP, CRP #### [facility] [address] [place] [address] Dr. Sea PughHemoglobin (Bld) [Mass/Vol]14.0 g/sXOcpwik59.0-18.0The Mercy Hospitalment on above:Performed By: #### HSTROPN, CMP, CRP #### [facility] [address] [place] [address] Dr. Sea Anguiano #0.04 10e3/ulCritically high0.00-0.03[facility] Comment on above:Performed By: #### HSTROPN, CMP, CRP #### [facility] [address] [place] [address] Dr. Sea Anguiano %0.3 %Normal0.0-0.5The Mercy Hospitalment on above: Performed By: #### HSTROPN, CMP, CRP #### [facility] [address] [place] [address] Dr. Sea NovaMPH #1.2 103/ulNormal1.2-3.8The Berger HospitalComment on above:Performed By: #### HSTROPN, CMP, CRP #### [facility] [address] [place] [address] Dr. Sea Novamphocytes/100 WBC (Bld)9.7 %Critically low20.5-60.0The López HospitalComment on above:Performed By: #### HSTROPN, CMP, CRP #### [facility] [address] [address] [address] Sea Merino DIFF REQNONormalThe Berger HospitalComment on above: Performed By: #### HSTROPN, CMP, CRP #### [facility] [address] [address] [address] Sea Steele (RBC) [Entitic mass]29.9 clNpxixr57.9-34.0The Berger HospitalComment on above:Performed By: #### HSTROPN, CMP, CRP #### [facility] [address] [address] [address] Sea Steele (RBC) [Mass/Vol]34.1 g/tXZwbsvz93.9-35.2The Berger HospitalComment on above:Performed By: #### HSTROPN, CMP, CRP #### [facility] [address] [address] [address] Sea Izaguirre (RBC) [Entitic vol]87.6 fIImanxl80.0-94.0The Mercy Hospitalment on above:Performed By: #### HSTROPN, CMP, CRP #### [facility] [address] [address] [address] Sea Rain #0.9 103/ulCritically high0.3-0.8ThProMedica Defiance Regional Hospital Comment on above:Performed By: #### HSTROPN, CMP, CRP #### [facility] [address] [place] [address] Dr. Sea Bansalocytes/100 WBC (Bld)7.4 %Normal1.7-12.0[facility] Comment on above:Performed By: #### HSTROPN, CMP, CRP #### [facility] [address] [place] [address] Dr. Sea Zapata #10.3 103/ulCritically high1.4-6.5[facility] Comment on above:Performed By: #### HSTROPN, CMP, CRP #### [facility] [address] [place] [address] Dr. Sea Díazutrophils/100 WBC (Bld)81.5 %Critically high43.0-75.0The Berger HospitalComment on above:Performed By: #### HSTROPN, CMP, CRP #### [facility] [address] [place] [address] Dr. Sea Santacruzlet mean volume (Bld) [Entitic vol]9.8 fLNormal9.5-13.5The Berger HospitalComment on above:Performed By: #### HSTROPN, CMP, CRP #### [facility] [address] [place] [address] Dr. Sea PughPLT247 103/geByixoq122-453Now Berger HospitalComment on above: Performed By: #### HSTROPN, CMP, CRP #### [facility] [address] [place] [address] Dr. Sea PughRBC4.68 106/ulCritically low4.70-6.10The [facility] HospitalComment on above:Performed By: #### HSTROPN, CMP, CRP #### [facility] [address] [place] [address] Dr. Sea PughWBC12.6 103/ulCritically high4.0-11.0The Berger HospitalComment on above:Performed By: #### HSTROPN, CMP, CRP #### [facility] [address] [place] [address] Dr. Sea Robbins 10-68-1610QZZ1.3 mg/dLNormal<=1.0[facility] Comment on above:Performed By: #### HSTROPN, CMP, CRP #### [facility] [address] [place] [address] Dr. Sea PughCT HEAD WO CONon 80-21-6870PP HEAD WO CONEXAMINATION: CT HEAD WO CON [...] Electronically authenticated by: VICENTA MARCH Date: 2021-11-28 00:11[facility] HEAD WO CONTRASTon [id number] HEAD WO CONTRASTEXAMINATION: CT OF THE HEAD [...] Signed by: Adalberto Escobar MD 11/28/21 Final resultNormalMarietta Osteopathic ClinicRadiology Study observation (narrative)[facility] [employer] Work Phone: cta HEAD NECK W CONTRASTon [id number] HEAD NECK W CONTRASTEXAMINATION: CT OF THE [...] Signed by: Adalberto Escobar MD 11/28/21 Final resultNormalMarietta Osteopathic ClinicCTA head neck with contraston [id number] Study observation (narrative)[facility] [employer] Work Phone: Hemoglobin A1Con 99-19-3432Ccftqrx [Mass/Vol]186 mg/dL NormalMarietta Osteopathic ClinicComment on above:Result Comment: The ADA and AACC recommend providing the estimated average glucose result to permit better patient understanding of their HBA1c result.Performed By: #### CBC, GLYHGB, BMP #### [facility] [address] [place] [address] Youth Care Specialist: Afshin Mansfield MDHbA1c (Bld) [Mass fraction]8.1 %High4.0-6.0[facility] Osteopathic ClinicComment on above:Performed By: #### CBC, GLYHGB, BMP #### [facility] [address] [place] [address] Youth Care Specialist: Afshin Mansfield MDHemoglobin A1con 73-25-1020Ovzityy [Mass/Vol]186 mg/dLBON [employer] [facility]FIELD HOSPITALComment on above:The ADA and AACC recommend providing the estimated average glucose result to permit better patient understanding of their HBA1c result. HbA1c (Bld) [Mass fraction]8.1 %High4 - 6 %[facility] BE[facility] HEALTH CENTERUQ Communications Interpretation and review of laboratory resultsAbnormBon Secours St. Mary's HospitalLACTATE/LACTIC ACIDon 25-30-8705Brbntaw [Moles/Vol]1.7 mmol/LNormal0.4-1.9The Berger HospitalComment on above:Performed By: #### DDIM #### [facility] [address] [address] [address] Sea PughLipid Panelon 72-18-5021Lkodgpipqqi [Mass/Vol]122 mg/dLNINF - 200 mg/dLBON [facility]THER[facility] COMMUN[facility] HOSPITALWoofRadar [facility] MANSFIELD HOSPITALComment on above: Cholesterol Guidelines: <200 Desirable 200-240 Borderline >240 Undesirable Cholesterol in HDL [Mass/Vol]34 mg/dLLow40 - PINF mg/dLBON [employer] Comment on above: HDL Guidelines: <40 Undesirable 40-59 Borderline >59 Desirable Cholesterol in LDL [Mass/Vol]74 mg/dL0 - 130 mg/dLBON NORTHERN COCHISE COMMUNITY HOSPITALUQ Communications Comment on above: LDL Guidelines: <100 Desirable 100-129 Near to/above Desirable 130-159 Borderline >159 Undesirable Direct (measured) LDL and calculated LDL are not interchangeable tests. Cholesterol.total/Cholesterol in HDL [Mass ratio]3.6 {ratio}NINF - 5BON [facility] HOSPITALJRapidInterpretation and review of laboratory resultsAbnormBuchanan General HospitalJRapidTriglyceride [Mass/Vol]71 mg/dLNINF - 150 mg/dLBON NORTHER[facility] COCH[facility] COMMUN[facility] HOSPITALWoofRadar [facility] MANSFIELD HOSPITALComment on above: Triglyceride Guidelines: <150 Desirable 150-199 Borderline 200-499 High >499 Very high Based on AHA Guidelines for fasting triglyceride, December 2011. [employer] TechnologiesLipid Profileon 97-72-1263Knxhzsdgfkx [Mass/Vol]122 mg/dLNormal<200[facility] Medical CenterComment on above:Result Comment: Cholesterol Guidelines: <200 Desirable 200-240 Borderline >240 UndesirablePerformed By: #### DALE MALDONADO, CDP #### [employer] [address] [place] [address] Youth Care Specialist: WOODROW Westfallholesterol in HDL [Mass/Vol]34 mg/dLLow>40Mer[facility] Regional Medical CenterComment on above:Result Comment: HDL Guidelines: <40 Undesirable 40-59 Borderline >59 DesirablePerformed By: #### DALE MALDONADO, CDP #### [employer] [address] [place] [address] Youth Care Specialist: WOODROW Westfallholesterol in LDL [Mass/Vol]74 mg/dLNormal0-130 [facility] Osteopathic ClinicComment on above:Result Comment: LDL Guidelines: <100 Desirable 100-129 Near to/above Desirable 130-159 Borderline >159 Undesirable Direct (measured) LDL and calculated LDL are not interchangeable tests.Performed By: #### DALE MALDONADO, CDP #### [employer] [address] [place] [address] Youth Care Specialist: Kali Westfall.total/Cholesterol in HDL [Mass ratio]3.6 {ratio}Normal<5Mer[facility] Medical CenterComment on above: Performed By: #### DALE MALDONADO, CDP #### [employer] [address] [place] [address] Youth Care Specialist: Afshin Mansfield MDTriglyceride [Mass/Vol]71 mg/dLNormal<150MerWatsonville Community Hospital– WatsonvilleComment on above:Result Comment: Triglyceride Guidelines: <150 Desirable 150-199 Borderline 200-499 High >499 Very high Based on AHA Guidelines for fasting triglyceride, December 2011.Performed By: #### DALE MALDONADO, CDP #### [employer] [address] [place] [address] Youth Care Specialist: LATRICIA Westfall WO CONTRASTon 56-72-3678NUE BRAIN W WO CONTRASTEXAMINATION: MRI OF THE [...] by: Anders Shepard MD 11/28/21 Final resultNormalMercy Mercy Hospital Bakersfieldubacute ischemia involving the right parietal/temporal lobe with [...] mass effect, and minimal leftward midline shift. [employer] Work Phone: radiology Study observation (narrative)[employer] Phone: MRI BRAIN W WO CONTRASTOrdered By: Anders Shepard on 14-51-6137NQD [employer] Work Phone: Magnesiumon 77-14-9386Qkeeisfky [Mass/Vol]1.5 mg/dLLow 1.6-2.6Mer[facility] Regional Medical CenterComment on above:Performed By: #### JOEL, BMP, CDP #### [employer] [facility] [place] [address] Youth Care Specialist: Afshin Mansfield MDInterpretation and review of laboratory results AbnormalBON [employer] TechnologyMagnesium [Mass/Vol]1.5 mg/dLLow1.6 - 2.6 mg/dL [facility] Eleutian TechnologyDIGNITY HEALTH [facility]ZONA [facility]ITAL Eleutian TechnologyNo Panel Informationon . Findings appear most consistent [...] to Dr. Velázquez on 11/28/2021 at 06:40. [facility] RIS CONSOLIDATEDEXAMINATION: CT OF THE HEAD WITHOUT [...] venous sinus thrombosis on this non-dedicated study. [facility] Adalberto Green MD - 11/28/2021 EXAMINATION: CT [...] at 06:40. [facility] [employer] Work Phone: No Panel InformationOrdered By: Adalberto Escobar on 45-63-0806IDW [facility] Work Phone: POC Glucose Fingerstickon 53-20-0061Yolrllp [Mass/Vol] 223 mg/nOUbsl83 - 110 mg/dLBON [facility]LEY HOSPITALInterpretation and review of laboratory resultsAbnormSentara [facility]burg [facility] Glucose [Mass/Vol]242 mg/jGTeci73 - 110 mg/dLBON [facility] Interpretation and review of laboratory resultsAbnormBon Secours St. Mary's HospitalGlucose [Mass/Vol]262 mg/sBHhfx04 - 110 mg/dLBON [facility] VALLEY HOSPITALInterpretation and review of laboratory resultsAbnormalCRITICAL ACCESS HOSPITALGlucose [Mass/Vol]317 mg/dXAkil69 - 110 mg/dLBON [facility] VALLEY HOSPITALInterpretation and review of laboratory results AbnormalBON FREEMAN REGIONAL HEALTH SERVICESPROF 14(COMP METB)on 60-41-2920Ctpoybr [Mass/Vol]3.7 g/dLNormal3.4-5.0The Berger HospitalComment on above:Performed By: #### HSTROPN, CMP, CRP #### [facility] [address] [place] [address] Dr. Sea PughAlbumin/Globulin [Mass ratio]0.9 {ratio}NormalThe Berger HospitalComment on above:Performed By: #### HSTROPN, CMP, CRP #### [facility] [address] [address] [address] Sea OrourkeP [Catalytic activity/Vol]150 U/LCritically fajj46-102Ucd Berger HospitalComment on above:Performed By: #### HSTROPN, CMP, CRP #### [facility] [address] [address] [address] Sea OrourkeT [Catalytic activity/Vol]23 U/KAzgsdj09-94Afx Berger HospitalComment on above:Performed By: #### HSTROPN, CMP, CRP #### [facility] [address] [place] [address] Dr. Sea PughAnion gap [Moles/Vol]9.8 mmol/LNormalThe Berger HospitalComment on above:Performed By: #### HSTROPN, CMP, CRP #### [facility] [address] [place] [address] Dr. Sea PughAST [Catalytic activity/Vol]20 U/WHupxpb78-70Mvp Berger HospitalComment on above:Performed By: #### HSTROPN, CMP, CRP #### [facility] [address] [place] [address] Dr. Sea PughBilirubin [Mass/Vol]1.2 mg/dLCritically high0.2-1.0The Berger HospitalComment on above:Performed By: #### HSTROPN, CMP, CRP #### [facility] [address] [place] [address] Dr. Sea PughCalcium [Mass/Vol]8.5 mg/dLNormal8.5-10.1[facility] Comment on above:Performed By: #### HSTROPN, CMP, CRP #### [facility] [address] [place] [address] Dr. Sea PughChloride [Moles/Vol]100 mmol/ETvyole58-386Jbj [facility] Comment on above:Performed By: #### HSTROPN, CMP, CRP #### [facility] [address] [address] [address] Sea PughCO2 [Moles/Vol]26.8 mmol/TYcgzle37.0-32.0[facility] Comment on above:Performed By: #### HSTROPN, CMP, CRP #### [facility] [address] [place] [address] Dr. Sea PughCreatinine [Mass/Vol]1.21 mg/dLNormal0.70-1.30[facility] FoundationComment on above:Performed By: #### HSTROPN, CMP, CRP #### [facility] [address] [place] [address] Dr. Osei ChangEGFR-AF MOSOTHO>60Normal>=60The Berger HospitalComment on above:Performed By: #### HSTROPN, CMP, CRP #### [facility] [address] [place] [address] Dr. Sea FordGFR-NON AF SAAFINVE44 mL/min/1.75p0Fbxmbcziol low>=60The Berger HospitalComment on above:Performed By: #### HSTROPN, CMP, CRP #### [facility] [address] [place] [address] Dr. Sea PughGlobulin (S) [Mass/Vol]3.9 g/dLNormalThe Berger HospitalComment on above:Performed By: #### HSTROPN, CMP, CRP #### [facility] [address] [place] [address] Dr. Sea PughGlucose [Mass/Vol]165 mg/dLCritically bqsz38-754End Berger HospitalComment on above:Performed By: #### HSTROPN, CMP, CRP #### [facility] [address] [place] [address] Dr. Sea PughPotassium [Moles/Vol]3.6 mmol/LNormal3.5-5.1[facility] Comment on above:Performed By: #### HSTROPN, CMP, CRP #### [facility] [address] [address] [address] Sea PughProtein [Mass/Vol]7.6 g/dLNormal6.4-8.2[facility] Comment on above:Performed By: #### HSTROPN, CMP, CRP #### [facility] [address] [address] [address] Sea PughSodium [Moles/Vol]133 mmol/LCritically wxy180-972Uwb [facility] HospitalComment on above:Performed By: #### HSTROPN, CMP, CRP #### [facility] [address] [address] [address] Sea PughUrea nitrogen [Mass/Vol]9.0 mg/dLNormal7.0-18.0The [facility] HospitalComment on above:Performed By: #### HSTROPN, CMP, CRP #### [facility] [address] [address] [address] Sea PughUrea nitrogen/Creatinine [Mass ratio]7.4 mg/mgNormalThe Berger HospitalComment on above:Performed By: #### HSTROPN, CMP, CRP #### [facility] [address] [place] [address] Dr. Sea PughProcalcitoninon 31-45-0496Cedcjlshozccc8.10 ng/mLHigh<0.09M[facility] Osteopathic ClinicComment on above:Result Comment: Suspected Sepsis: <0.50 ng/mL [...] entered into the Change in Procalcitonin Calculator (www.pgcjzi-ntc-xdsazimrzf.com) to determine the patient's Mortality Risk Prognosis In healthy neonates, plasma Procalcitonin (PCT) concentrations increase gradually after , reaching peak values at about 24 hours of age then decrease to normal values below 0.5 ng/mL by 48-72 hours of age.Performed By: #### IOCAL, BMP, CDP #### [facility] [facility] [address] [id number] Youth Care Specialist: Afshin Mansfield MDInterpretation and review of laboratory results AbnormalDICKENSON COMMUNITY HOSPITALProcalcitonin0.1 ng/mLHighNINF - 0.09 ng/mLDICKENSON COMMUNITY HOSPITALComment on above: Suspected Sepsis: <0.50 ng/mL Low [...] entered into the Change in Procalcitonin Calculator (www.eliwpz-bgf-hmzledydak.[employer]) to determine the patient's Mortality Risk Prognosis In healthy neonates, plasma Procalcitonin (PCT) concentrations increase gradually after , reaching peak values at about 24 hours of age then decrease to normal values below 0.5 ng/mL by 48-72 hours of age. DICKENSON COMMUNITY HOSPITALSED RATE WESTERGRENon 31-17-8870AVE RATE42 mm/hr Critically high<=20The [facility] HospitalComment on above:Performed By: #### SEDR #### [facility] [address] [place], [place] [address] Dr. Sea Burnette, HIGH SENSITIVITYon 90-98-4962EERPVN9.0 pg/mLNormal 4.0-76.1The López HospitalComment on above:Result Comment: CUT-OFF POINTS HAVE BEEN ESTABLISHED BASED ON THE FOURTH UNIVERSAL DEFINITIONS OF MYOCARDIAL INFARCTION. THE UPPER REFERENCE LIMIT (URL) OF TROPONIN, DEFINED THE 99TH PERCENTILE OF cTnI DISTRIBUTION IN A REFERENCE POPULATION, HAS BEEN CONFIRMED THE DECISION THRESHOLD FOR [place] DIAGNOSIS.Performed By: #### HSTROPN, CMP, CRP #### [facility] [address] [address] [address] Sea Cabrera Visit (Cardiology)on 81-22-4253Fyyeze-up visit Diagnoses/Problems Assessed Persistent atrial fibrillation (427.31) [...] Metabolic Panel; Status:Active - Retrospective Authorization; Requested for:[id number]; Overweight with body mass index (BMI) of 28 to 28.9 in adult Healthy Weight Tips; Status:Complete - Retrospective Authorization; Done: [id number] Some eating tips that can help you lose weight.; Status:Complete - Retrospective Authorization; Done: [id number] Persistent atrial fibrillation IO EKG Electrocardiogram- 12 Lead; Status:Complete; Done: [id number] Single vessel coronary disease Renew: Aspirin EC 81 MG Oral Tablet Delayed Release; TAKE 1 TABLET DAILY Renew: Atorvastatin Calcium 80 MG Oral Tablet (Lipitor); TAKE 1 TABLET DAILY SocHx: Former smoker Tobacco Use Screening; Status:Complete; Done: [id number] Patient Instructions Please bring all medicines, vitamins, [...] us (more content not included)...NormalUH TouchworksTobacco Screening.on 04-01-7341Kmav risk assessmenta) No falls within the last yearUNC [facility] Wugly 250 DO Work Phone: Tobacco use status CPHSb) NoMLourdes Medical Center earthmine 250 DO Work Phone: BNPon 99-29-2363Lbvpaevrqul peptide B (Bld) [Mass/Vol] 836.0 pg/mLNormal<=900.0The Berger HospitalComment on above:Performed By: #### HSTROPN, CMP, BNP ####[facility] [address] [place], [place] [address]PnDr. Sea Rachel AUTO DIFFon 86-72-2070OUSL #0.1 103/ulNormal0.0-0.1The Berger HospitalComment on above:Performed By: #### DDIM #### [facility] [address] [address] [address] Sea Cornejophils/100 WBC (Bld)0.5 %Normal0.2-2.0[facility] Comment on above:Performed By: #### DDIM #### [facility] [address] [address] [address] Yilan ChangEO #0.3 103/ulNormal0.0-0.7The Berger HospitalComment on above: Performed By: #### DDIM #### [facility] [address] [place] [address] Dr. Sea Fordosinophils/100 WBC (Bld)3.3 %Normal0.9-7.0[facility] Comment on above:Performed By: #### DDIM #### [facility] [address] [place] [address] Dr. Sea Fordrythrocyte distribution width (RBC) [Ratio]13.7 %Zxhtyl43.0-15.0 [facility] FoundationComment on above:Performed By: #### DDIM #### [facility] [address] [place] [address] Dr. Sea PughHematocrit (Bld) [Volume fraction]41.3 %Critically low42.0-54.0 [facility] FoundationComment on above:Performed By: #### DDIM #### [facility] [address] [place] [address] Dr. Sea PughHemoglobin (Bld) [Mass/Vol]14.0 g/vSVgxxsz67.0-18.0The Berger HospitalComment on above:Performed By: #### DDIM #### [facility] [address] [place] [address] Dr. Sea Anguiano #0.04 10e3/ulCritically high0.00-0.03[facility] Comment on above:Performed By: #### DDIM #### [facility] [address] [place] [address] Dr. Sea Anguiano %0.4 %Normal0.0-0.5The Berger HospitalComment on above: Performed By: #### DDIM #### [facility] [address] [place] [address] Dr. Sea PrinceH #1.3 103/ulNormal1.2-3.8The Berger HospitalComment on above:Performed By: #### DDIM #### [facility] [address] [place] [address] Dr. Sea Novamphocytes/100 WBC (Bld)13.1 %Critically low20.5-60.0The Berger HospitalComment on above:Performed By: #### DDIM #### [facility] [address] [place] [address] Dr. Sea SoniUAL DIFF REQNONormalThe Berger HospitalComment on above: Performed By: #### DDIM #### [facility] [address] [place] [address] Dr. Sea Steele (RBC) [Entitic mass]30.2 zyKebepz37.9-34.0The Berger HospitalComment on above:Performed By: #### DDIM #### [facility] [address] [place] [address] Dr. Sea Steele (RBC) [Mass/Vol]33.9 g/cUUakwwj17.9-35.2The Berger HospitalComment on above:Performed By: #### DDIM #### [facility] [address] [place] [address] Dr. Sea Steele (RBC) [Entitic vol]89.0 rTBnrbnz95.0-94.0The Berger HospitalComment on above:Performed By: #### DDIM #### [facility] [address] [place] [address] Dr. Sea Rain #1.0 103/ulCritically high0.3-0.8ThProMedica Defiance Regional [facility] Comment on above:Performed By: #### DDIM #### [facility] [address] [place] [address] Dr. Sea Bansalocytes/100 WBC (Bld)9.8 %Normal1.7-12.0[facility] Comment on above:Performed By: #### DDIM #### [facility] [address] [place] [address] Dr. Sea Zapata #7.1 103/ulCritically high1.4-6.5[facility] Comment on above:Performed By: #### DDIM #### [facility] [address] [place] [address] Dr. Sea PughNeutrophils/100 WBC (Bld)72.9 %Tlyjjv81.0-75.0The [facility] HospitalComment on above:Performed By: #### DDIM #### [facility] [address] [place] [address] Dr. Sea PughPlatelet mean volume (Bld) [Entitic vol]9.7 fLNormal9.5-13.5The [facility] HospitalComment on above:Performed By: #### DDIM #### [facility] [address] [place] [address] Dr. Sea PughPLT247 103/vyBqfbit059-261Xay [facility] HospitalComment on above: Performed By: #### DDIM #### [facility] [address] [place] [address] Dr. Sea PughRBC4.64 106/ulCritically low4.70-6.10The [facility] HospitalComment on above:Performed By: #### DDIM #### [facility] [address] [place] [address] Dr. Sea PughWBC9.8 103/ulNormal4.0-11.0The [facility] HospitalComment on above: Performed By: #### DDIM #### [facility] [address] [place] [address] Dr. Sea Schultz CHEST WO W CONon [id number] CHEST WO W CONCTA CHEST WITH IV [...] The subdiaphragmatic abdominal organs included in the dioid-mw-braj do not demonstrate any acute abnormality. IMPRESSION: 1. Normal-appearing thoracic aorta. 2. No CT evidence for acute pulmonary embolus. 3. Otherwise unremarkable CT scan of the chest for acute pathology. Electronically authenticated by: OBI MIDDLETON Date: 2021-09-22 19:33NoCleveland Clinic Avon HospitalCovid-19 PCR ([facility])on [id number]-CoV-2 (COVID-19) RNA [place]+probe Ql (Unsp spec)Not detectedNormalNOT DETECTEDThe [facility] Comment on above:Result Comment: When diagnostic [...] for this test is supported by the [place] of Health and Human Service's declaration that [...] used).Performed By: #### HSTROPN, CMP, CRP #### [facility] [address] [address] [address] Sea Hodge 14(COMP METB)on 20-72-4184Ifgccht [Mass/Vol]3.6 g/dLNormal 3.4-5.0The [facility] HospitalComment on above:Performed By: #### HSTROPN, CMP, BNP ####[facility] [address] [address]Dr. Sea PughAlbumin/Globulin [Mass ratio]0.9 {ratio}NormalC[facility] Comment on above:Performed By: #### HSTROPN, CMP, BNP ####[facility] [address] [address]Dr. Sea ChangALP [Catalytic activity/Vol]143 U/LCritically fhda49-026Wkx [facility] HospitalComment on above: Performed By: #### HSTROPN, CMP, BNP ####[facility] [address] [address]Dr. Sea ChangALT [Catalytic activity/Vol]28 U/L Zkdtni08-59Evl [facility] HospitalComment on above:Performed By: #### HSTROPN, CMP, BNP ####[facility] [address] [address]Dr. Sea ChangAnion gap [Moles/Vol]12.6 mmol/LNormalC[facility] Clinic Foundation Comment on above:Performed By: #### HSTROPN, CMP, BNP ####[facility] [address] [address]Dr. Yilan ChangAST [Catalytic activity/Vol]18 U/LYoksog84-06Zyk [facility] HospitalComment on above:Performed By: #### HSTROPN, CMP, BNP ####[facility] [address] [address]Dr. Sea ChangBilirubin [Mass/Vol]1.1 mg/dLCritically high0.2-1.0The [facility] HospitalComment on above:Performed By: #### HSTROPN, CMP, BNP ####[facility] [address] [address]Dr. Yilan ChangCalcium [Mass/Vol]8.7 mg/dLNormal8.5-10.1The [facility] HospitalComment on above:Performed By: #### HSTROPN, CMP, BNP ####[facility] [address] [address]Dr. Yilan Pugh Chloride [Moles/Vol]100 mmol/QIqqsau03-361Exv [facility] HospitalComment on above: Performed By: #### HSTROPN, CMP, BNP ####[facility] [address] [address]Dr. Yilan ChangCO2 [Moles/Vol]27.1 mmol/LNormal 21.0-32.0The [facility] HospitalComment on above:Performed By: #### HSTROPN, CMP, BNP ####[facility] [address] [address]Dr. Yilan ChangCreatinine [Mass/Vol]1.15 mg/dLNormal0.70-1.30[facility] Comment on above:Performed By: #### HSTROPN, CMP, BNP ####[facility] [address] [address]Dr. Yilan ChangEGFR-AF MOSOTHO>60Normal>=60The [facility] HospitalComment on above:Performed By: #### HSTROPN, CMP, BNP ####[facility] [address] [address]Dr. Yilan ChangEGFR-NON AF MOSOTHO>60Normal>=60The [facility] Comment on above:Performed By: #### HSTROPN, CMP, BNP ####[facility] [address] [address]Dr. Yilan ChangGlobulin (S) [Mass/Vol]3.9 g/dLNormalThe [facility] HospitalComment on above:Performed By: #### LILIANTROPN, CMP, BNP ####[facility] [address] [address]Dr. Yilan ChangGlucose [Mass/Vol]214 mg/dLCritically qvpo16-972Fmm [facility] HospitalComment on above:Performed By: #### HSTROPN, CMP, BNP ####[facility] [address] [address]Dr. Yilan ChangPotassium [Moles/Vol]3.7 mmol/LNormal3.5-5.1[facility] Comment on above:Performed By: #### LILIANTROPN CMP, BNP ####[facility] [address] [address]Dr. Yilan ChangProtein [Mass/Vol]7.5 g/dLNormal6.4-8.2The [facility] HospitalComment on above:Performed By: #### LILIANTROPN, CMP, BNP ####[facility] [address] [place], [place] [address]Dr. Yilan ChangSodium [Moles/Vol]136 mmol/LNormal 136-145The [facility] HospitalComformerly [facility] on above:Performed By: #### LILIANTROPN, CMP, BNP ####[facility] [address] [address]Dr. Yilan ChangUrea nitrogen [Mass/Vol]13.0 mg/dLNormal7.0-18.0[facility] Comment on above:Performed By: #### HSTROPN, CMP, BNP ####[facility] [address] [address]Dr. Yilan ChangUrea nitrogen/Creatinine [Mass ratio]11.3 mg/mgNoCleveland Clinic Avon HospitalComformerly [facility] on above:Performed By: #### HSTROPN, CMP, BNP ####[facility] [address] [place], [place] [address]Dr. Yilan ChangPROTIMEon [id number] Coag (PPP) [Relative time]1.07 {INR}NormalThe López HospitalComment on above: Performed By: #### PT, PTT ####[facility] [address] [address]Dr. Sea PughINR GUIDELINESSEE BELOWNoCleveland Clinic Avon HospitalComment on above:Result Comment: DESIRED INR: 2.0 - 3.0 CONDITIONS NOT LISTED BELOW 2.5 - 3.5 FOR PROSTHETIC HEART VALVE REPLACEMENT 2.5 - 3.5 RECURRENT THROMBOSISPerformed By: #### PT, PTT ####[facility] [address] [address]Dr. Sea KeatonPT Coag (PPP) [Time]11.5 sNormal9.0-11.6The [facility] on above:Performed By: #### PT, PTT ####[facility] [address] [address]Dr. Sea PughPTTon [id number] Coag (Bld) [Time]30.2 kQitoos53.3-36.2 The [facility] HospitalComformerly [facility] on above:Performed By: #### PT, PTT ####[facility] [address] [address]Dr. Sea Pugh TROPONIN, HIGH SENSITIVITYon [id number] pg/mLNormal4.0-76.1The [facility] on above:Result Comment: CUT-OFF POINTS HAVE BEEN ESTABLISHED BASED ON THE FOURTH UNIVERSAL DEFINITIONS OF MYOCARDIAL INFARCTION. THE UPPER REFERENCE LIMIT (URL) OF TROPONIN, DEFINED THE 99TH PERCENTILE OF cTnI DISTRIBUTION IN A REFERENCE POPULATION, HAS BEEN CONFIRMED THE DECISION THRESHOLD FOR [place] DIAGNOSIS.Performed By: #### HSTROPN, CMP, BNP ####[facility] [address] [address]Dr. Sea PughXR CHEST 1 Von [id number] CHEST 1 VEXAM: XR CHEST 1 V [...] 19:39[facility]CT [facility] CONon [id number] HEAD WO CONCT head without contrast CLINICAL: [...] 09:53[facility] CenterCT ORBIT WO CONon [id number] ORBIT WO CONCT cervical spine CLINICAL: HEADACHE [...] Electronically authenticated by: KENY GREENE Date: 2021-08-26 10:03[facility] W MANUAL DIFFon [id number] LYMPH #NormalThe Raleigh HospitalComment on above:Performed By: #### DDIM #### [facility] [address] [place] [address] Dr. Sea PughATYPICAL LYMPH %NormalCleveland Clinic FoundationComment on above: Performed By: #### DDIM #### [facility] [address] [place] [address] Dr. Sea Li #Normal0.0-0.3The [facility] HospitalComment on above: Performed By: #### DDIM #### [facility] [address] [place] [address] Dr. Sea Li %Normal0-5The [facility] HospitalComment on above:Performed By: #### DDIM #### [facility] [address] [place] [address] Dr. Sea Daniels #0.00 103/ulNormal0.00-0.10The [facility] HospitalComment on above:Performed By: #### DDIM #### [facility] [address] [place] [address] Dr. Sea Daniels %0.0 %Critically low0.2-2.0[facility] on above:Performed By: #### DDIM #### [facility] [address] [place] [address] Dr. Sea Estes #NormalThe [facility] HospitalComment on above:Performed By: #### DDIM #### [facility] [address] [place] [address] Dr. Sea Estes %NormalCleveland Clinic FoundationComment on above:Performed By: #### DDIM #### [facility] [address] [place] [address] Dr. Sea JohnsonRRECTED WBCNormal4.0-11.0The [facility] HospitalComformerly [facility] on above: Performed By: #### DDIM #### [facility] [address] [place] [address] Dr. Yilan ChangEOS #0.21 103/ulNormal0.00-0.70The [facility] HospitalComment on above:Performed By: #### DDIM #### [facility] [address] [place] [address] Dr. Sea Kidd%2.0 %Normal0.9-7.0The [facility] HospitalComment on above: Performed By: #### DDIM #### [facility] [address] [place] [address] Dr. Sea HenryT41.3 %Critically low42.0-54.0The [facility] HospitalComment on above:Performed By: #### DDIM #### [facility] [address] [place] [address] Dr. Sea PughHGB14.1 g/hoLnzecp17.0-18.0The [facility] HospitalComment on above: Performed By: #### DDIM #### [facility] [address] [place] [address] Dr. Sea Alexandra #1.14 103/ulCritically low1.20-3.80[facility] Comment on above:Performed By: #### DDIM #### [facility] [address] [place] [address] Dr. Sea Alexandra%11.0 %Critically low20.5-60.0[facility] on above:Performed By: #### DDIM #### [facility] [address] [place] [address] Dr. Sea SteeleH30.9 iwWasakz88.9-34.0The [facility] HospitalComment on above: Performed By: #### DDIM #### [facility] [address] [place] [address] Dr. Sea SteeleHC34.1 g/ppEmwyas73.9-35.2The [facility] HospitalComment on above:Performed By: #### DDIM #### [facility] [address] [place] [address] Dr. Sea SteeleV90.4 tCMleald13.0-94.0The [facility] HospitalComment on above: Performed By: #### DDIM #### [facility] [address] [address] [address] Sea NovoaOCYTE #NormalThe [facility] HospitalComment on above: Performed By: #### DDIM #### [facility] [address] [address] [address] Sea NovoaOCYTE %NormalThe [facility] HospitalComment on above: Performed By: #### DDIM #### [facility] [address] [address] [address] Sea Betancourt#1.98 103/ulCritically high0.30-0.80The [facility] on above:Performed By: #### DDIM #### [facility] [address] [address] [address] Sea Betancourt%19.0 %Critically high1.7-12.0The [facility] HospitalComment on above:Performed By: #### DDIM #### [facility] [address] [address] [address] Sea PughMPV9.7 fLNormal9.5-13.5The [facility] HospitalComment on above: Performed By: #### DDIM #### [facility] [address] [address] [address] Sea Medina #NormalCleveland Clinic FoundationComment on above:Performed By: #### DDIM #### [facility] [address] [address] [address] Sea CifuentesOCYTE %NormalCleveland Clinic FoundationComment on above:Performed By: #### DDIM #### [facility] [address] [address] [address] Sea PughNRBCNormalThProMedica Defiance Regional HospitalComment on above:Performed By: #### DDIM #### [facility] [address] [address] [address] Sea DiezT259 103/xwBykgaq515-780Cjs [facility] HospitalComment on above: Performed By: #### DDIM #### [facility] [address] [address] [address] Sea VázquezC4.57 106/ulCritically low4.70-6.10The [facility] HospitalComment on above:Performed By: #### DDIM #### [facility] [address] [address] [address] Sea PughRDW13.4 %Hlmvnx06.0-15.0The [facility] HospitalComment on above: Performed By: #### DDIM #### [facility] [address] [address] [address] Sea Treadwell #7.07 103/ulCritically high1.40-6.50[facility] Comment on above:Performed By: #### DDIM #### [facility] [address] [place] [address] Dr. Sea Treadwell %68.0 %Kgflkt48.0-75.0The [facility] HospitalComment on above: Performed By: #### DDIM #### [facility] [address] [place] [address] Dr. Sea PughWBC10.4 103/ulNormal4.0-11.0The [facility] HospitalComment on above:Performed By: #### DDIM #### [facility] [address] [place] [address] Dr. Sea PughPROF CHEM 8 (BAS METB)on 56-33-6062Hxnof gap [Moles/Vol]13.5 mmol/LNormalThe [facility] HospitalComment on above:Performed By: #### HSTROPN, CMP, CRP #### [facility] [address] [place] [address] Dr. Sea PughCalcium [Mass/Vol]8.7 mg/dLNormal8.5-10.1[facility] Comment on above:Performed By: #### HSTROPN, CMP, CRP #### [facility] [address] [place] [address] Dr. Sea PughChloride [Moles/Vol]97 mmol/LCritically upk04-017Uyf [facility] HospitalComment on above:Performed By: #### HSTROPN, CMP, CRP #### [facility] [address] [address] [address] Sea PughCO2 [Moles/Vol]24.2 mmol/FIzsijw93.0-32.0[facility] Comment on above:Performed By: #### HSTROPN, CMP, CRP #### [facility] [address] [address] [address] Sea PughCreatinine [Mass/Vol]1.26 mg/dLNormal0.70-1.30The [facility] HospitalComment on above:Performed By: #### HSTROPN, CMP, CRP #### [facility] [address] [address] [address] Osei ChangEGFR-AF MOSOTHO>60Normal>=60The [facility] HospitalComment on above:Performed By: #### HSTROPN, CMP, CRP #### [facility] [address] [place] [address] Dr. Sea FordGFR-NON AF GIWYLXCG04 mL/min/1.00s0Hzjyhsswbz low>=60The [facility] Hospitalment on above:Performed By: #### HSTROPN, CMP, CRP #### [facility] [address] [place] [address] Dr. Sea PughGlucose [Mass/Vol]201 mg/dLCritically jpxw30-879Xyp [facility] HospitalComment on above:Performed By: #### HSTROPN, CMP, CRP #### [facility] [address] [place] [address] Dr. Sea PughPotassium [Moles/Vol]3.7 mmol/LNormal3.5-5.1[facility] Comment on above:Performed By: #### HSTROPN, CMP, CRP #### [facility] [address] [place] [address] Dr. Sea PughSodium [Moles/Vol]131 mmol/LCritically qpr237-381Sye [facility] HospitalComment on above:Performed By: #### HSTROPN, CMP, CRP #### [facility] [address] [place], [place] [address] Dr. Sea PughUrea nitrogen [Mass/Vol]21.0 mg/dLCritically high7.0-18.0The [facility] HospitalComformerly [facility] on above:Performed By: #### HSTROPN, CMP, CRP #### [facility] [address] [place], [place] [address] Dr. Sea PughUrea nitrogen/Creatinine [Mass ratio]16.7 mg/mgNoCleveland Clinic Avon HospitalComment on above:Performed By: #### HSTROPN, CMP, CRP #### [facility] [address] [place], [place] [address] Dr. Sea PughXR CHEST 2 Von [id number] CHEST 2 VEXAM: XR CHEST 2 V [...] Health CenterXR SINUSES 3 VIEWS OR GREATERon [id number] SINUSES 3 VIEWS OR GREATERXR SINUSES 3 [...] Electronically authenticated by: LOULOU DAVIS Date: 2021-08-22 06:31NoCleveland Clinic Avon HospitalTobacco Screening.on 94-78-4182Ebxps depression screening assessmentMunicipal [facility]-[address] [address] DO Work Phone: Fall risk assessmenta) No falls within the last year -[facility] DO Work Phone: Tobacco use status CPHSb) NoMLourdes [facility] [address] DO Work Phone: Vital Signs Date TimeVital SignValuePerforming YjnrblmnoQzgzojyi94-51-3451 16:38-0400Body .4 cmLwilder PoundMagruder Memorial Hospital09-03-2025 16:38-0400Body mass index (BMI) [Ratio]24.01 kg/b9Akknxbz [facility]09-03-2025 16:38-0400Body tvmzty79.56 kgHarlem Hospital Center09-03-2025 16:38-0400Diastolic blood zqygcgpf27 mm[Hg]Kristin [facility]09-03-2025 16:38-0400Heart rate64 /minMer[facility] Vincent Medical Centerguille [facility] 11-23-2024 16:38-0400Systolic blood canrmwuh953 mm[Hg]Kristin [facility]08-20-2025 14:25-0400Body igplhb654.4 cmC[facility]08-20-2025 14:25-0400Body mass index (BMI) [Ratio]24.46 kg/c4ItbcibCrisp Regional Hospital08-20-2025 14:25-0400Body zczqou55.1 kgC[facility]p Regional Hospital08-20-2025 14:25-0400Diastolic blood whaqophd68 mm[Hg] [facility]08-20-2025 14:25-0400Heart rate61 /minCrisp Regional Hospital08-20-2025 14:25-0400Systolic blood rofgrpwu230 mm[Hg][facility]08-14-2025 13:40-0400Body vseays033.4 cmMarciano Hi DPM Work Phone: [facility] ChildrenDqklkrswsg40-45-2237 13:40-0400Body mass index (BMI) [Ratio]27.97 kg/f0KsbsgepaMarciano Hi DPM Work Phone: [facility] ChildrenPmyxhmgrpd76-17-9830 13:40-0400Body tqzbre62.16 kgTootiemedina Hi DPM Work Phone: [facility] ChildrenEixbowkwgt94-14-0070 13:40-0400Respiratory rate16 /minMarciano Hi DPM Work Phone: [facility] ChildrenObvkewoaef27-31-2342 14:28-0400Body epwoju489.4 cmVeronica Liz MD Work Phone: [phone])[address]08-06-2025 14:28-0400 Body mass index (BMI) [Ratio]24.28 kg/z9PhdnsueVeronica Liz MD Work Phone: [phone])[address]08-06-2025 14:28-0400 Body gupiwp18.46 kgVeronica Liz MD Work Phone: [phone])[address]08-06-2025 14:28-0400 Diastolic blood rrfyoxpi93 mm[Hg]Veronica Liz MD Work Phone: [phone])[address]08-06-2025 14:28-0400 Heart rate62 /Brody Liz MD Work Phone: [phone])[address]08-06-2025 14:28-0400 Systolic blood pahtecqx667 mm[Hg]Veronica Liz MD Work Phone: [phone])[address]03-06-2025 13:28-0500 Body wypryb659.4 cmMarciano Hi DPM Work Phone: [facility] ChildrenHqjvxysfiz97-18-7814 13:28-0500Body mass index (BMI) [Ratio]27.97 kg/u1Umcdprpi Brown DPM Work Phone: [facility] ChildrenTicneokqmr97-98-7876 13:28-0500Body slsqua71.16 kgNicpancho Brown DPM Work Phone: [facility] ChildrenVbextzngiv61-56-4147 13:28-0500Respiratory rate18 /minTootiemedina Hi DPM Work Phone: [facility] ChildrenTmbuqazzsp06-35-4178 13:45-0500Body xznotm342.4 cmVeronica Liz MD Work Phone: 1([phone])319-[address] [place], [place] 9597001-29-2025 13:45-0500 Body mass index (BMI) [Ratio]26.25 kg/z2FcgzklcVeronica Liz MD Work Phone: [phone])[address]01-29-2025 13:45-0500 Body gpteps66.27 kgVeronica Liz MD Work Phone: [phone])[address]01-29-2025 13:45-0500 Diastolic blood bragmyvk88 mm[Hg]Veronica Liz MD Work Phone: [phone])[address]01-29-2025 13:45-0500 Heart rate61 /Brody Liz MD Work Phone: [phone] [place], [place] 9597001-29-2025 13:45-0500 Systolic blood ztjezmef02 mm[Hg]Veronica Liz MD Work Phone: [phone])[address]12-26-2024 11:51-0500 Body jgmcik028.4 cmFlorentinopancho Hi DPM Work Phone: [facility] ChildrenInjwqhrhrv66-29-3990 11:51-0500Body mass index (BMI) [Ratio]27.97 kg/l9Ohvdoiuu Brown DPM Work Phone: [facility] ChildrenFjffinuycb22-47-1860 11:51-0500Body .16 kgNicpancho Brown DPM Work Phone: [facility] ChildrenIpzpuqaqgo82-20-8759 11:51-0500Respiratory rate18 /minMarciano Hi DPM Work Phone: [facility] ChildrenTusvdjbebw92-29-9462 14:56-0500Body .4 cmVeronica Liz MD Work Phone: [phone]11-07-2024 14:56-0500 Body mass index (BMI) [Ratio]27.31 kg/z2WnueareVeronica Liz MD Work Phone: [phone])[address]11-07-2024 14:56-0500 Body bkajwy07.89 kgVeronica Liz MD Work Phone: [phone])[address]11-07-2024 14:56-0500 Diastolic blood vbfvhekt37 mm[Hg]Veronica Liz MD Work Phone: [phone])[address] [place], [place] 9597011-07-2024 14:56-0500 Heart rate55 /Brody Liz MD Work Phone: [phone])[address] [place], [place] 9597011-07-2024 14:56-0500 Systolic blood byjsbmtw060 mm[Hg]Veronica Liz MD Work Phone: [phone])[address] [place], [place] 9597010-17-2024 13:51-0400 Body ewdnvc749.4 cmMarciano Hi DPM Work Phone: [facility] ChildrenAhypcnpdso70-80-9812 13:51-0400Body mass index (BMI) [Ratio]27.97 kg/l2DvfapmjmMarciano Hi DPM Work Phone: [facility] ChildrenZrjylrujxk43-42-2058 13:51-0400Body .16 kgMarciano Hi DPM Work Phone: [facility] ChildrenGugulcdmeo65-40-1113 13:51-0400Diastolic blood kqpjutjn32 mm[Hg]Marciano Hi DPM Work Phone: 1(315)923-[address] [place], [place] [address]Efnbjikkpi61-61-9263 13:51-0400Heart rate81 /min Marciano Hi DPM Work Phone: [facility] ChildrenKpetybuzpf20-73-4866 13:51-0400Systolic blood npckueka560 mm[Hg]Marciano Hi DPM Work Phone: [facility] ChildrenCtmmdvvksa58-56-4610 15:50-0400Diastolic blood xvpeofxl34 mm[Hg]Veronica Liz MD Work Phone: [phone])[address]05-09-2024 15:50-0400 Systolic blood mm[Hg]Veronica Liz MD Work Phone: 1([phone])[address]05-09-2024 14:47-0400 Body sanbzn917.4 cmVeornica Liz MD Work Phone: [phone])[address]05-09-2024 14:47-0400 Body mass index (BMI) [Ratio]28.1 kg/p5EdeqxwoVeronica Liz MD Work Phone: [phone])[address]05-09-2024 14:47-0400 Body vqlaok43.62 kgVeronica Liz MD Work Phone: 1(489)[address]05-09-2024 14:47-0400 Heart rate96 /minVeronica Liz MD Work Phone: 1([phone])[address]11-09-2023 14:35-0500 Body pnurva778.4 cmVeronica Liz MD Work Phone: [phone])[address]11-09-2023 14:35-0500 Body mass index (BMI) [Ratio]28.89 kg/s9UcytlwmVeronica Liz MD Work Phone: [phone])[address]11-09-2023 14:35-0500 Body qhiqqv98.34 kgVeronica Liz MD Work Phone: [phone])[address]11-09-2023 14:35-0500 Diastolic blood mkoyufkv73 mm[Hg]Veronica Liz MD Work Phone: [facility]11-09-2023 14:35-0500 Heart rate62 /minVeronica Liz MD Work Phone: [facility]11-09-2023 14:35-0500 Systolic blood tlmervsp898 mm[Hg]Veronica Liz MD Work Phone: [facility]05-17-2023 13:15-0400 Body bezxzi062.42 cmCharles P House Work Phone: mp141-7231QE-Sndma [place] [facility] [address] [place] Work Phone: [phone] 13:15-0400Body mass index (BMI) [Ratio] 28.23 kg/w4Bcxnpkz P House Work Phone: [id number]-Vceng [place] [facility] [address] [place] Work Phone: [phone] 13:15-0400Body surface area Derived from formula2.21 t4Mpjvetb P House Work Phone: mp206-0400TV-Lvyjc [place] [facility] [address] [place] Work Phone: [phone] 13:15-0400Body kpuhfu52.07 kgCharles P House Work Phone: mp941-0095VY-Moacp [place] [facility] [address] [place] Work Phone: 1(261) 597-215405-17-2023 13:15-0400Diastolic blood lyhfvpyd77 mm[Hg] Valente P House Work Phone: mp203-3170ZA-Nfkvg [place] [facility] [address] [place] Work Phone: 1(991)[phone] 13:15-0400Heart rate57 /minCharles P House Work Phone: mp215-5481SS-Jqagn [place] [facility] [address] [place] Work Phone: 1([phone]) 646-624805-17-2023 13:15-0400Systolic blood szjjdakg350 mm[Hg] Valente P House Work Phone: mp969-2504XS-Avron [place] [facility] [address] [place] Work Phone: 1([phone])[phone]381 09:22-0400Body fpraum445.42 cmCharles P House Work Phone: mp436-0591NS-Qqclf [place] [facility] [address] DO Work Phone: 1(214) 550-179603-17-2023 09:22-0400Body mass index (BMI) [Ratio] 27.84 kg/s9Vvipjsj P House Work Phone: mp140-2522FB-Fwmeg [place] [facility] [address] DO Work Phone: 1(899) 423-154703-17-2023 09:22-0400Body surface area Derived from formula2.2 t6Wplbsuw P House Work Phone: mp589-6471GR-Rxgki [place] [facility] [address] DO Work Phone: [phone] 09:22-0400Body ykteha47.71 kgCharles P House Work Phone: mp268-9993PD-Tjimr [facility] 250 DO Work Phone: 1(830) [phone] 09:22-0400Diastolic blood ladlbloq17 mm[Hg] Valente P House Work Phone: mp542-3048CS-Onpjo [facility] 250 DO Work Phone: 1(425)893-158-111364-29485740-52-2519 09:22-0400Heart rate80 /minCharles P House Work Phone: mp660-2225YX-Uokfa [facility] DO Work Phone: 1(445) 356-524603-17-2023 09:22-0400Systolic blood eesghvwr023 mm[Hg] Valente P House Work Phone: mp293-7901BV-Yjvcm [facility] 250 DO Work Phone: 1(452) 434-282203-16-2023 13:14-0400Body ebuoqv983.42 cmCharles P House Work Phone: mp591-3816AN-Ggnti [facility] DO Work Phone: 1(154) 418-366603-16-2023 13:14-0400Body mass index (BMI) [Ratio] 27.84 kg/a2Rckksyw P House Work Phone: mp488-6931DH-Rxpyw [facility] DO Work Phone: 1(872) 207-892203-16-2023 13:14-0400Body surface area Derived from formula2.2 c7Lwnwjqr P House Work Phone: 1(834) [phone]-Lvglb [facility] DO Work Phone: 1(828) 527-348403-16-2023 13:14-0400Body pzjolj49.71 kgCharmarianela P House Work Phone: 1(735) [phone]-Ljtgw [facility] DO Work Phone: 1(679) 475-366603-16-2023 13:14-0400Diastolic blood mm[Hg] Valnete Ortega House Work Phone: 1(186) [phone]-Ncmeo [facility] DO Work Phone: 1(736) 232-517903-16-2023 13:14-0400Heart pafr128 /minCharles P House Work Phone: 1(527) [phone]-Ugyfc [facility] DO Work Phone: 1(547) 235-328303-16-2023 13:14-0400Systolic blood jayoanwo622 mm[Hg] Valente P House Work Phone: 1(440) [phone]-Tmuhx [facility] DO Work Phone: 1(812) 261-198709-14-2022 10:00-0400Diastolic blood yamhyhgm22 mm[Hg] Neal Velázquez MD Work Phone: bon [facility] FZHFHR70-94-2771 10:00-0400Heart rate82 /minPaul Eber LEW Work Phone: bon [facility] OMHPFC93-04-7702 10:00-0400 Respiratory rate18 /minPaul Eber LEW Work Phone: [facility]09-14-2022 10:00-3516TaU1% (BldA) [Mass fraction]95 %Neal Velázquez MD Work Phone: [facility]09-14-2022 10:00-0400Systolic blood frpqsvez805 mm[Hg]Neal Velázquez MD Work Phone: [facility]09-14-2022 08:00-0400Body bmetxuwlyvv21.9 [degF]Neal Velázquez MD Work Phone: [facility]09-08-2022 03:30-0400Body mroqtq830.4 cmPdamián Velázquez MD Work Phone: [facility]09-08-2022 03:30-0400Body mass index (BMI) [Ratio]27.34 kg/m2Paul Eber LEW Work Phone: [facility]09-08-2022 03:30-0400Body myqrgw02 kgPaul Eber LEW Work Phone: [facility]09-07-2022 14:19-0400Diastolic blood cvzjfdoo85 mm[Hg]Valente P House Work Phone: mp119-0544VB-Dluyk [place] [facility] 250 DO Work Phone: 1(183) [phone] 14:19-0400Systolic blood vmpuqgjv294 mm[Hg] Valente P House Work Phone: mp054-5477RX-Irfnd [place] [facility] [employer] 250 DO Work Phone: 1(621) 102-546709-07-2022 13:40-0400Body acmzdc175.42 cmCharles P House Work Phone: mp019-5525UP-Mlhdc [place] [facility] 250 DO Work Phone: 1(602) 352-341209-07-2022 13:40-0400Body mass index (BMI) [Ratio] 28.63 kg/u1Quengvy P House Work Phone: mp235-3996VT-Bmbzl [place] [facility] 250 DO Work Phone: 1(333) 761-477709-07-2022 13:40-0400Body surface area Derived from formula2.23 i0Tynykxr P House Work Phone: mp034-4689NV-Etkcy [place] [facility] 250 DO Work Phone: 1(844) 190-776709-07-2022 13:40-0400Body .43 kgCharles P House Work Phone: mp205-9809WJ-Hwtio [place] [facility] [employer] 250 DO Work Phone: 1(351) [phone] 13:40-0400Diastolic blood stiaktfh55 mm[Hg] Valente P House Work Phone: mp744-4390JP-Khixd [place] [facility] 250 DO Work Phone: 1(860) 133-927109-07-2022 13:40-0400Heart rate61 /minCharles P House Work Phone: mp881-7938HS-Yupbv [place] [facility] 250 DO Work Phone: 1(453) 611-287209-07-2022 13:40-0400Systolic blood kvybjhzs471 mm[Hg] Valente P House Work Phone: mp655-4026TB-Qpavl [place] [facility] 250 DO Work Phone: 1(615) 592-845106-28-2022 12:15-0400Body wassws596.42 cmThomas Olexa Other [employer] Other 06-28-2022 12:15-0400Body mass index (BMI) [Ratio] 28.49 kg/r1Gkcxxe Olexa Other [employer] Other 06-28-2022 12:15-0400Body .98 kgThomas Olexa Other [employer] Other 06-09-2022 10:30-0400Body .42 cmThomas Olexa Other [employer] Other 06-09-2022 10:30-0400Body mass index (BMI) [Ratio] 28.49 kg/y2Kapzpj [facility]lexa [facility] Other 06-09-2022 10:30-0400Body .98 kgThomas [facility]lexa [facility] Other 03-02-2022 13:17-0500Body twdggy098.42 cmCharles P House Work Phone: mp617-8978BH-Ztbbc [place] [facility] 250 DO Work Phone: 1(243) 593-971203-02-2022 13:17-0500Body mass index (BMI) [Ratio] 29.95 kg/p6Pahlfab P House Work Phone: mp300-1242XJ-Xmuxn [place] [facility] 250 DO Work Phone: 1(885) 769-459503-02-2022 13:17-0500Body surface area Derived from formula2.27 m6Pmmedpq P House Work Phone: mp072-2272GN-Bnitu [place] [facility] 250 DO Work Phone: 1(857) 192-856503-02-2022 13:17-0500Body ktckuq534.97 kgCharles P House Work Phone: mp227-5031FF-Dwytk [place] [facility] 250 DO Work Phone: 1(629) 615-260203-02-2022 13:17-0500Diastolic blood hlnddexq36 mm[Hg] Valente P House Work Phone: mp946-1586YV-Pgfys [facility] DO Work Phone: 1(621) 668-276603-02-2022 13:17-0500Heart rate60 /minCharles P House Work Phone: mp919-4805SG-Iodjk [facility] DO Work Phone: 1(761) 962-293103-02-2022 13:17-0500Systolic blood mm[Hg] Valente P House Work Phone: mp343-4492KN-Dwexn [place] [facility] 250 DO Work Phone: Encounters Encounter DateEncounter TypeCare ProviderFacilityStart: 01-12-2025 End: 84-65-9143Essvojhhm department patient visitTim ThomasFacility:FTMCStart: 12-15-2024 End: 38-83-0469uchilrtuatHpzkbavFilippo Chua [facility] Work Phone: Start: 12-15-2024 End: 71-12-6324Jqcasoph ReferredGilles Mae DO-LAB [facility] Start: 11-23-2024 End: 86-83-2631Wwsdpywqfgke / ancillary services managementKristin Mcmanus [facility] CenterComment on above:High risk medication use; Persistent atrial fibrillation (Multi)Start: 11-23-2024 End: 98-87-8797uybkzhaiujWFBJINVDodge County Hospital AmbulatoryStart: 11-09-2024 End: 32-47-7461Qtiozhlifcvd / ancillary services managementClyde Yoo [facility] GladwinComment on above:Persistent atrial fibrillation (Multi) (Primary Dx); High risk medication useStart: 11-09-2024 End: 98-99-4780gyvkvqwrumSBKIFKMDodge County Hospital AmbulatoryStart: 11-03-2024 End: 38-41-5104Pewbof outpatient visit 10 minutesNicholas A Brown DPM Work Phone: NOMS CI PODIATRYComment on above:Xerosis cutis (Primary Dx); Diabetes 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, unspecified whether front desk host insulin use (HCC); Pain due to onychomycosis of toenails of both feet; Right foot dropStart: 11-03-2024 End: 94-01-9431Hfmklb flowsheetNicholas A Brown DPM Work Phone: noMS CI PODIATRYStart: 11-03-2024 End: 82-74-3414Ickidt flowsheetNicholas A Brown DPM Work Phone: noMS CI PODIATRYStart: 11-03-2024 End: 00-54-1746qplstileadGHSPWNEA A BROWNNot AvailableStart: 10-26-2024 End: 81-32-1142Gqwcqc outpatient visit 25 Jose Liz MD Work Phone: uh [facility] on above:Persistent atrial fibrillation (Multi) (Primary Dx); Single vessel coronary disease; High risk medication use; Stenosis of right carotid artery; Mixed hyperlipidemia; Essential hypertension; Anemia, unspecified type; Cerebrovascular accident (CVA), unspecified mechanism (Multi); Former smoker; BMI 24.0-24.9, adult; Prolonged QT intervalStart: 10-26-2024 End: 48-51-0246dtfhyioccrYSPPBPCDodge County Hospital AmbulatoryStart: 08-11-2024 End: 94-44-0981bedsxsjgspYQVEIHZJ A BROWNNot AvailableStart: 05-26-2024 End: 66-52-8186Ahbcoi Julia Hi DPM Work Phone: noMS CI PODIATRYStart: 05-26-2024 End: 00-17-7337Oeadafjosselyn Hi DPM Work Phone: noMS CI PODIATRYStart: 05-26-2024 End: 85-09-4799Mwxaku outpatient visit 15 minutesMarciano Hi DPM Work Phone: noms CI PODIATRYComment on above:Xerosis cutis (Primary Dx); Diabetes 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, unspecified whether shelter insulin use ([facility]); Pain due to onychomycosis of toenails of both feet; Right foot dropStart: 05-26-2024 End: 63-01-8617tncztbrwmwNDPYZUUV A BROWNNot AvailableStart: 04-20-2024 End: 65-72-6491Bkvcpm outpatient visit 40 Jose Liz MD Work Phone: uh [facility] on above:TIA (transient ischemic attack) (Primary Dx); Single vessel coronary disease; High risk medication use; Stenosis of right carotid artery; Persistent atrial fibrillation (Multi); Mixed hyperlipidemia; Essential hypertension; Cerebrovascular accident (CVA), unspecified mechanism (Multi); Former smoker; BMI 26.0-26.9,adultStart: 04-20-2024 End: 84-00-6806odqallotmjAPMBCCEDodge County Hospital AmbulatoryStart: 03-17-2024 End: 32-11-9105Ghdune Julia Hi DPM Work Phone: noms CI PODIATRYStart: 03-17-2024 End: 62-71-3429Dcwtnc Julia Hi DPM Work Phone: noms CI PODIATRYStart: 03-17-2024 End: 75-80-5756Hshmag outpatient visit 10 Jose Manuel Hi DPM Work Phone: noms CI PODIATRYComment on above:Xerosis cutis (Primary Dx); Diabetes 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, unspecified whether front desk host insulin use ([facility]); Pain due to onychomycosis of toenails of both feet; Right foot dropStart: 03-17-2024 End: 25-72-0970jbrhyjwfxaOTCMTJNK A BROWNNot AvailableStart: 01-28-2024 End: 44-95-2285Bhkgnm outpatient visit 25 Jose Liz MD Work Phone: uh FirelandsComment on above:Persistent atrial fibrillation (Multi) (Primary Dx); Single vessel coronary disease; Mixed hyperlipidemia; Essential hypertension; Anemia, unspecified type; Cerebrovascular accident (CVA), unspecified mechanism (Multi); High risk medication use; Former smoker; BMI 27.0-27.9,adultStart: 01-28-2024 End: 84-37-6871craraatgvpFUNUZZZDodge County Hospital AmbulatoryStart: 01-07-2024 End: 46-40-7372Qwtwgljosselyn Hi DPM Work Phone: noms CI PODIATRYStart: 01-07-2024 End: 80-78-5519Fxsesw Julia Hi DPM Work Phone: noms CI PODIATRYStart: 01-07-2024 End: 45-83-4721Rubmzx outpatient visit 15 minutesMarciano Hi DPM Work Phone: noms CI PODIATRYComment on above:Xerosis cutis (Primary Dx); Onychomycosis; Pain due to onychomycosis of toenails of both feet; Right foot dropStart: 01-07-2024 End: 66-58-5781neltozfstsAAHTKQHJ A BROWNNot AvailableStart: 07-30-2023 End: 48-23-9161Uaztkx outpatient visit 25 minutesVeronica Liz MD Work Phone: uh [facility] HospitalComment on above:High risk medication use (Primary Dx); Single vessel coronary disease; Essential hypertension; Mixed hyperlipidemia; Persistent atrial fibrillation (Multi); BMI 28.0-28.9,adult; Cerebrovascular accident (CVA), unspecified mechanism (Multi); Anemia, unspecified type; Former smokerStart: 01-29-2023 End: 13-33-1599Swxkog outpatient visit 25 minutesVeronica Liz MD Work Phone: uh [facility] HospitalComment on above:Single vessel coronary disease (Primary Dx); Essential hypertension; Mixed hyperlipidemia; Persistent atrial fibrillation (CMS/HCC); Anemia, unspecified type; BMI 28.0-28.9,adultStart: 32-07-5488Iq RenewalChelsearles P House Work Phone: [phone]-YbykoBrian [place] [address] Work Phone: Start: 40-38-9297bnxslnbgxrSooshye Traboulssi Facility:[id number]: 87-42-5109Si RenewalCharles P House Work Phone: [phone]-[facility]qrgiL[facility]view [facility] 250 DO Work Phone: Start: 00-92-9024PPS, Provider: Veronica Liz, Status: Pen, Time: 9:40 AMCharles P House Work Phone: [phone]-Qgnmo [facility] 250 DO Work Phone: Start: 54-74-8466Kigisn outpatient visit 10 minutes Valente P House Work Phone: [phone]-Fuiqu [facility] 250 DO Work Phone: Start: 75-42-1034wksoyoxqrbCzgkcro [facility] Facility:89[address]Bbvbl: 94-71-2276Wkmctv outpatient visit 40 minutesCharles P House Work Phone: [phone]-Rwjrb [facility] 250 DO Work Phone: Start: 83-84-1609ziqkyuzkqsAbbxptm [facility] Facility:74[address]Nxmzn: 05-14-2022 End: 19-57-7494tyggtdemgjEV VALENTE HOUSEFacility:P0Omrfc: 04-20-2022 End: 77-64-4123oausfutadyLS VALENTE HOUSEFacility:F7Ngfyj: 12-79-4911Uj Renewal Valente P House Work Phone: [phone]-DcvlbOrtonville Hospitalusky 250 DO Work Phone: Start: 12-20-2021 End: 11-92-3279pykhwtzrpzJS VALENTE HOUSEFacility:B1Ihfdl: 12-05-2021 End: 85-14-7776hbepxttbzoCQ VALENTE HOUSEFacility:K4Fiygq: 11-28-2021 End: 46-16-8488Rggipaandj and management of inpatientMELISSA MARKERMerSHC Specialty Hospitaltart: 11-28-2021 End: 01-77-7426Ckszqomxea and management of inpatientMichaelul Eber LEW Work Phone: stvz 1B Neuro ICUComment on above:Cerebrovascular accident (CVA), unspecified mechanism (HCC) (Primary Dx); HyponatremiaStart: 11-28-2021 End: 10-77-5850gduvsmiumpJR BENITA MARKER .Facility:Z2Avilq: 71-03-1267Hcdskd outpatient visit 25 minutesCharles P House Work Phone: [phone]-Pcjiv [facility] 250 DO Work Phone: Start: 47-76-9350vzmrxfnwtuIojzxzi Traboulssi Facility:811[address]Oknuo: 39-68-5769Xi RenewalCharles P House Work Phone: [phone]-Agdzy [facility] 250 DO Work Phone: Start: 73-24-3272oimerhqnzrSvbwsf IbrahimFacility:9090 Start: 09-22-2021 End: 43-01-0291qldzbswmqzAP ANN Rendon LUCYECKFacility:O8Uqdiw: 09-17-2021 End: 46-64-7609uzknjjffyxPjjlpc Olexa Other [employer] Other Start: 92-29-2063Upvcgk follow up visit related to original pxThomas OlexaFPG Rosita OrthopedicsStart: 08-29-2021 End: 79-38-6626nayfkywptzOapdqc Olexa Other [employer] Other Start: 76-45-1703DRDW visit new patientThomas OlexaFPG Rosita OrthopedicsStart: 08-26-2021 End: 46-41-3097nerhtvueujKF CHARLES HOUSEFacility:J5Xwadm: 08-22-2021 End: 11-69-0583lormaholbdNF CHARLES OPELOUSASFacility:W5Iwzft: 95-80-4637Rqyuod outpatient visit 25 minutesCharles P House Work Phone: [phone]-Mixhk [facility] 250 DO Work Phone: Start: 17-47-4082Splvkbu encounter procedureMOFELI BENTLEYacility:1532 Procedures DateProcedureProcedure DetailPerforming ClinicianStart: 28-20-0040Gts routine ecg w/least 12 lds w/i&Humberto Liz MD Work Phone: Start: 71-85-0841Kjd routine ecg w/least 12 lds w/i&r Veronica Liz MD Work Phone: Start: 09-84-1812Eov routine ecg w/least 12 lds w/i&r Veronica Liz MD Work Phone: Start: 02-27-1306Vro routine ecg w/least 12 lds w/i&r Veronica Liz MD Work Phone: Start: 26-74-7788Cqw routine ecg w/least 12 lds w/i&r Veronica Liz MD Work Phone: Start: 75-91-5381Mts routine ecg w/least 12 lds w/i&r Veronica Liz MD Work Phone: Start: 00-25-7770Opbkwnh blood reagent stripJamal Chirri DO Work Phone: Start: 01-20-9706Wlwoe metabolic panel calcium total Adina Hi COMMUNITY RELATIONS ASSISTANT - [employer]AND[employer] M[employer]ER Work Phone: Start: 40-50-9771Nnunjte blood reagent stripJamal Chirri DO Work Phone: Start: 12-03-2021 End: 09-30-5118Xwega of osmolality urineMohammad I Mashaleh DO Work Phone: Start: 01-62-0312Knudxbw blood reagent stripJamal Chirri DO Work Phone: Start: 56-02-2923Zwvxs metabolic panel calcium total Adina Hi COMMUNITY RELATIONS ASSISTANT - [employer]AND[employer] M[employer]ER Work Phone: Start: 55-15-7100Ltdmbtb blood reagent stripJamal Chirri DO Work Phone: Start: 22-27-9722Bmkgkmy blood reagent stripJamal Chirri DO Work Phone: Start: 93-56-3385Iqa routine ecg w/least 12 lds trcg only w/o i&rJeffrey P Blood DO Work Phone: Start: 94-60-7439Oelzzsj blood reagent stripJamal Chirri DO Work Phone: Start: 12-02-2021 End: 56-53-3819Djukx of troponin Caitlin Holguin MD Work Phone: Start: 51-70-7041Hrhtt of magnesiumDanielle Holguin MD Work Phone: Start: 38-45-4505Jmn routine ecg w/least 12 lds i&r onlyJamal Chirri DO Work Phone: Start: 01-38-6996Vppgb dip stick/tablet reagent auto microscopyDebbie Villalobos MD Work Phone: Start: 34-00-7124Ycpuzfa blood reagent stripNeilmal Chirri DO Work Phone: Start: 33-20-2981Cqmyrso blood reagent stripNeilmal Chirri DO Work Phone: Start: 40-88-6097Ngywgga blood reagent stripJamal Chirri DO Work Phone: Start: 06-07-9943Aaiylfp blood reagent stripNeilmal Chirri DO Work Phone: Start: 15-89-2584Kiygltz blood reagent stripJamal Chirri DO Work Phone: Start: 02-79-2756Dpcpc metabolic panel calcium total Amanda Garcia COMMUNITY RELATIONS ASSISTANT - [employer]AND[employer] M[employer]ER Work Phone: Start: 44-23-5909Howvgha blood reagent stripJamal Chirri DO Work Phone: Start: 50-76-6944Sauy tthrc r-t 2d w/wom-mode compl spec&colr Yina Cabrera MD Work Phone: Start: 89-07-0923Dqwbvfq blood reagent stripJamal Chirri DO Work Phone: Start: 11-30-2021 End: 55-46-2913Edipo metabolic panel calcium totalAmanda Garcia COMMUNITY RELATIONS ASSISTANT - [employer] M[employer]ER Work Phone: Start: 67-66-8640Qonlfwu blood reagent stripJatutu Niecy DO Work Phone: Start: 30-68-1674Wnkandn blood reagent Rose Velázquez MD Work Phone: Start: 13-90-5026Kob routine ecg w/least 12 lds i&r onlyMayayadelfina Atkins COMMUNITY RELATIONS ASSISTANT - [employer]AND[employer] M[employer]ER Work Phone: Start: 84-24-9644Pezfhiv blood reagent Rose Velázquez MD Work Phone: Start: 64-26-2980Azeph of Talat Velázquez MD Work Phone: Start: 76-39-1111Lg head/brain w/o contrast material Isidro Mehta MD Work Phone: Start: 08-89-1166Frngpcm blood reagent Rose Velázquez MD Work Phone: Start: 04-30-5784Mkush metabolic panel calcium total Amanda Arroyo Garcia COMMUNITY RELATIONS ASSISTANT - [employer]ER Work Phone: Start: 37-79-8436Lueyizq blood reagent Rose Velázquez MD Work Phone: Start: 80-99-6046Unjrutr blood reagent Rose Velázquez MD Work Phone: Start: 55-57-1618Afsfwcg blood reagent Rose Velázquez MD Work Phone: Start: 02-57-8155Kkytenf blood reagent Rose Velázquez MD Work Phone: Start: 36-97-1604Tkhyogz blood reagent Rose Velázquez MD Work Phone: Start: 57-46-1404Ulx brain brain stem w/o w/contrast materialIsidro Mehta MD Work Phone: Start: 04-37-3071Ghmpx of Talat Velázquez MD Work Phone: Start: 70-31-0890Eubtl panelPaul Eber LEW Work Phone: Start: 11-28-2021 End: 26-31-7909ONCJUXJ, BLOOD 1Paul Eber LEW Work Phone: Start: 70-67-1018Kj angiography neck w/contrast/noncontrastChristian Dk Mehta MD Work Phone: Start: 17-06-8942Ns head/brain w/o contrast material [facility] Mehta MD Work Phone: Start: 22-60-0140Rhcur metabolic panel calcium total Neal Velázquez MD Work Phone: Cataract surgeryCharles P House Work Phone: ColonoscopyCharles P House Work Phone: Elbow joint operationsCharles P House Work Phone: Operation on gallbladderCharles P House Work Phone: Procedure on backCharles P House Work Phone: TonsillectomyCharles P House Work Phone: VasectomyCharles P House Work Phone: Plan of Treatment DateCare ActivityDetailAuthorStart: 06-08-2025 End: 33-50-5409Goqcvrg encounter qaqiezdgr49/19/2026 3:00 PM EDT Office Visit [facility] [address] [facility] [address] [place] [address] Veronica Liz MD [address] [facility] [address] [place] [address] [facility]: 01-26-2025 End: 83-17-8288Drumtue encounter gzdtlwuqk20/06/2025 1:50 PM EST Procedure Visit [facility] [address] [place] [address] Marciano Hi DPM [address] [facility] 5 [place] [address] [facility] CI PODIATRYStart: 50-66-6354Kghjkade identified in Urine by CultureUrine CultureMercy Health Kings Mills Hospitaltart: 12-15-2024 Urine cultureMercy Health Kings Mills Hospitaltart: 11-23-2024 End: 24-15-6218HHI 12 LeadECG 12 Lead ECG Routine High risk medication use Persistent atrial fibrillation (Multi) Expected: 11/23/2024 (Approximate), Expires: 11/09/2025[facility] Service Area Work Phone: Comment on above:Expected: 11/23/2024 (Approximate), Expires: 11/09/2025Start: 11-23-2024 End: 38-45-7933Cesulmriltby / ancillary services zpeqixwfpa80/03/2025 2:00 PM EDT Ancillary Procedure [address] [address] [facility]Start: 53-22-1723SPBTR-19 Vaccine ( season)COVID-19 Vaccine ( season)[facility] Start: 96-03-7716Gklcrifsf vaccinationInfluenza Vaccine (#1)[facility] HospitalStart: 11-09-2024 End: 82-14-8289UJP 12 [facility] Service Area Work Phone: Comment on above:Expected: 11/09/2024 (Approximate), Expires: 10/26/2025Start: 11-09-2024 End: 23-43-7903Xbwoabeesxtw / ancillary services zmqachavfb94/20/2025 2:00 PM EDT Ancillary Procedure [address] [address] [facility] HospitalStart: 11-03-2024 End: 24-34-9802Qgplyek encounter bkvsoxwzf22/14/2025 2:40 PM EDT Procedure Visit [facility] [address] [address] Marciano Hi DPM [address] [facility] 5 [place] [address] Diabetes 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, unspecified whether front desk host insulin use (HCC) (Primary Dx); Pain due to onychomycosis of toenails of both feet; Right foot drop; Xerosis cutisNOMS CI PODIATRYComment on above:Diabetes 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, unspecified whether front desk host insulin use (HCC) (Primary Dx); Pain due to onychomycosis of toenails of both feet; Right foot drop; Xerosis cutisStart: 10-26-2024 End: 14-27-6682Uwtmpix encounter /06/2025 2:30 PM EDT Office Visit [address] [address] Veronica Liz MD [address] [place] [address] 2, [facility] 250 [place] [address] [facility]: [facility]20[facility] End: 68-56-7476Oublttg encounter hvilqvuxn63/22/2025 2:10 PM EDT Procedure Visit [facility] [address] [facility] 120 [place] [address] Marciano Hi DPM [address] [address] [facility] CI PODIATRYStart: 08-03-2024 End: 59-70-2909Noqrfgb encounter /14/2025 3:30 PM EDT Office Visit [address] [address] Veronica Liz MD [address] [facility] [address], [address] [place] [address] [facility]: 05-26-2024 End: 97-55-3070Lepdttf encounter procedureNOMS CI PODIATRYComment on above: Diabetes 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, unspecified whether shelter insulin use (CMS/HCC) (Primary Dx); Pain due to onychomycosis of toenails of both feet; Right foot drop; Xerosis cutisStart: 03-17-2024 End: 51-54-0205Kvsjjla encounter znjsqzoad58/26/2024 1:50 PM EST Procedure Visit [facility] [address] [facility] [address] [place] [address] Marciano Hi DPM [address] [facility] 5 [place] [address] [facility] CI PODIATRYStart: 03-17-2024 End: 07-97-4824Clwmnxx encounter zurrsvpgj96/26/2024 11:50 AM EST Procedure Visit [facility] [address] [address] Marciano Hi DPM [address] [address] Diabetes 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,unspecified whether shelter insulin use (CMS/HCC) (Primary Dx); Pain due to onychomycosis of toenails of both feet; Right foot drop; Xerosis cutisNOMS CI PODIATRYComment on above:Diabetes 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, unspecified whether shelter insulin use (CMS/HCC) (Primary Dx); Pain due to onychomycosis of toenails of both feet; Right foot drop; Xerosis cutisStart: 01-28-2024 End: 11-36-4258Tkwqxku encounter dviqomasi11/07/2024 3:10 PM EST Office Visit [facility] [address] [facility] [address] [place] [id number] Veronica Liz MD [address] [facility] [address] [place] [address] [facility]: 01-07-2024 End: [id number] encounter /17/2024 2:00 PM EDT Procedure Visit [facility] [address] [facility] [address] [place] [address] Marciano Hi, DPM [address] [facility] [address] [place] [address] Onychomycosis (Primary Dx); Pain due to onychomycosis of toenails of both feet; Right foot drop; Xerosis cutisNOMS CI PODIATRYComment on above:Onychomycosis (Primary Dx); Pain due to onychomycosis of toenails of both feet; Right foot drop; Xerosis cutisStart: [id number] Vaccine ( season)COVID-19 Vaccine ()[facility]: 11-22-2023 Influenza vaccinationUnBarberton Citizens Hospital: 07-30-2023 End: 41-36-9845Exabxee encounter msohppftg16/09/2024 3:00 PM EDT Office Visit [facility] [address] [facility] [address] [place] [address] Veronica Liz MD [address] [facility] [address], [facility] [address] [place] [address] [facility]: 59-72-8987CIM, Provider: Veronica Liz, Status: Pen, Time: 3:10 PMFUV, Provider: Veronica Liz, Status: Pen, Time: 3:10 PM-[facility] [address] [place] Work Phone: Start: 22-73-6658Wcpnpeed mellitus screeningDiabetes ScreeningUnBarberton Citizens Hospital: 81-70-2147Khkfgxyfdb A1c apfwagdmcsgJ8N test (Diabetic or Prediabetic)[facility]Start: 90-92-3558Znhif panelLipidsBON [facility]LEY HOSPITALStart: 92-27-7998LHWIJ-19 Vaccine ( season)COVID-19 Vaccine ()[facility]: 30-89-8825Rpxglgqso vaccinationInfluenza Vaccine (#1)[facility]: 27-61-9223TWD, Provider: Veronica Liz, Status: Pen, Time: 1:30 PMFUV, Provider: Veronica Liz, Status: Pen, Time: 1:30 PMMP-[facility] [address] DO Work Phone: Start: 97-93-5702CYM, Provider: Veronica Liz, Status: Pen, Time: 1:20 PMFUV, Provider: Veronica Liz, Status: Pen, Time: [facility] [address] Work Phone: Start: 89-33-1166Jmpmxphpmp A1c measurementDiabetes: Hemoglobin A2BSIJQShriners Hospitals for ChildrenStart: 01-27-2022 End: 76-68-4453Deabguh encounter /07/2022 Office Visit Neurology AntoniJasmin MD [address] [place] [address] [facility] [address] [facility]Oste[facility] of Rhode Islandtart: 79-40-2804RJJGXQII, Provider: SURJIT TIRADO ELECTRONIC TEST TECHNICIAN 1,[id number], Status: Pen, Time: 1:30 PM NURSEVST, Provider: SURJIT TIRADO ELECTRONIC TEST TECHNICIAN 1,[id number], Status: Pen, [facility]: [facility] [address] Work Phone: Start: 12-19-2021 End: 05-94-6526ZZ HEAD WO CONTRASTCT HEAD WO CONTRAST Imaging Routine Cerebrovascular accident (CVA), unspecified mechanism (HCC) Expected: 12/19/2021, Expires: 11/30/2022ON [employer] Phone: comment on above:Expected: 12/19/2021, Expires: 11/30/2022Start: 12-10-2021 End: 79-88-6829Pqkzy metabolic 2000 panel - Serum or PlasmaBasic Metabolic Panel Lab Routine Hyponatremia Expected: 12/10/2021, Expires: 01/02/2022ON [employer] Phone: comment on above:Expected: 12/10/2021, Expires: 01/02/2022tart: 67-46-1266KDN, Provider: Veronica Liz, Status: Pen, Time: 1:30 PMFUV, Provider: Veronica Liz, Status: Pen, Time: 1:30 PMMP-[facility] [address] DO Work Phone: Start: 15-44-2177Tshokkhka vaccinationFlu vaccine (#1) [facility]: 90-85-7110SVK High Risk: (Elderly (60+) or Population) (1 - 1-dose 75+ series)RSV High Risk: (Elderly (60+) or Population) (1 - 1-dose 75+ series)[facility] Start: 46-92-3277QPILR-19 Vaccine (4 - Booster for Pfizer series)COVID-19 Vaccine (4 - Booster for Pfizer series)[facility]: 03-12[facility]2021 COVID-19 Vaccine (4 - Pfizer series)COVID-19 Vaccine (4 - Pfizer series) [facility] HospitalStwall: 55-35-6615Iufqlnfpz aortic aneurysm screeningAAA screenBON [facility]: 05-99-7349ITZ patients and/or patients aged 60+ years (1 - 1-dose 60+ series)RSV patients and/or patients aged 60+ years (1 - 1-dose 60+ series)[facility] HospitalSt[facility]: 54-86-6905Aqywqkso vaccine (1 of 2)Shingles vaccine (1 of 2)[facility]: 31-22-1094Racsdz Vaccines (1 of 2)Zoster Vaccines (1 of 2)[facility]: 46-83-4347Feayvnwnq for malignant neoplasm of colonBON [facility]: 1968 DTaP/Tdap/Td Vaccines (1 - Tdap)DTaP/Tdap/Td Vaccines (1 - Tdap)[facility]: 11-77-1383ROwP/Tdap/Td vaccine (1 - Tdap) DTaP/Tdap/Td vaccine (1 - Tdap)[facility]: 1964 Pneumococcal vaccinationPneumococcal Vaccine (1 of 2 - PCV)[facility]: 15-28-6207Amlrwixfsiqf Vaccine: 65+ Years (1 of 2 - PCV) Pneumococcal Vaccine: 65+ Years (1 of 2 - PCV)[facility] ChildrenStart: 1964 Urine screening for proteinDiabetes: Urine Protein ScreeningShriners Hospitals for Children Start: 96-62-1414Oecnpbob retinal examDiabetic retinal examSouthampton [facility] Hospital: 41-76-8704Dvyrydhyj C screeningBON [facility]: 10-57-6902Qzgsxazuvx ScreenDepression ScreenSouthampton Memorial Hospital: 73-13-7556Dftgtzah foot examinationDiabetic foot examDICKENSON COMMUNITY HOSPITAL Start: 86-40-9313Suahtjiy screeningDiabetes: Retinopathy ScreeningSaint John's Health Systemart: 68-02-0882Gpesasdjmtxj 65+ years Vaccine (1 - PCV)Pneumococcal 65+ years Vaccine (1 - PCV)[facility]: 29-15-1114Rachyjlvjbmc Vaccine: 65+ Years (1 - PCV)Pneumococcal Vaccine: 65+ Years (1 - PCV)[facility]: 31-73-6895Tittolspwkoi Vaccine: 65+ Years (1 of 2 - PCV)Pneumococcal Vaccine: 65+ Years (1 of 2 - PCV)[facility]: 21-23-2775Asxniy Wellness Visit (AWV)Annual Wellness Visit (AWV) [facility]: 11-08-7984Jxqco panelLipid PanelUnBarberton Citizens Hospital: 08-03-1946Medicare Annual Wellness (AWV)Medicare Annual Wellness (AWV)[facility] ChildrenStart: 08-03-1947Medicare Annual Wellness VisitMedicare Annual Wellness Visit (AWV)[facility] End: 91-91-0546Afzdo metabolic 2000 panel - Serum or PlasmaBasic Metabolic Panel Lab Routine Daily for 3 Days starting 12/03/2021 until 12/05/2021, 2 completed [employer] Phone: comment on above:Daily for 3 Days starting 12/03/2021 until 12/05/2021, 2 completed End: 60-03-0997OER W Auto Differential panel - BloodCBC with Auto Differential Lab Routine Daily for 3 Days starting 12/03/2021 until 12/05/2021, 2 completed [employer] Phone: Comment on above:Daily for 3 Days starting 12/03/2021 until 12/05/2021, 2 completedContinuous pulse oximetryPulse oximetry, continuous Respiratory Care Routine Every 4hr until discontinued starting 11/28/2021ON [employer] Phone: comment on above:Every 4hr until discontinued starting 11/28/2021Glucose [Mass/volume] in Serum or PlasmaBON [employer] Phone: comment on above:4X Daily (AC & HS) until discontinued starting 11/28/2021s Needed until discontinued starting 11/28/2021xygen therapy [Minimum Data Set]Initiate Oxygen Therapy Protocol Respiratory Care Routine As Needed until discontinued starting 11/28/2021ON [employer] Phone: comment on above:As Needed until discontinued starting 11/28/2021 End: 30-48-1525VIE clinical swallow evaluationSLP clinical swallow evaluation M[employer]ER WOOD FLOUR Routine One Time for 1 Occurrences starting 11/28/2021 until 11/28/2021ON [employer] Phone: Comment on above:One Time for 1 Occurrences starting 11/28/2021 until 11/28/2021 End: 47-20-8506Djfdiu and language therapy regimeSpeech Language Pathology (MILLER WOOD FLOUR) eval and treat MILLER WOOD FLOUR Routine One Time for 1 Occurrences starting 11/28/2021 until 11/28/2021[facility] Work Phone: comment on above:One Time for 1 Occurrences starting 11/28/2021 until 11/28/2021 Immunizations Immunization DateImmunizationNotesCare QuyytszrGizaaups07-83-9387Leqvuq-BhfTDcrp COVID-19 Vacc 30 MCG/0.3ML Intramuscular SuspensionCharles P House Work Phone: [facility] on above: Series:07-99-3770Tjzcif-BioNTech COVID-19 Vacc 30 MCG/0.3ML Intramuscular SuspensionCharles P House Work Phone: [facility]03-01-2021Pfizer- BioNTech COVID-19 Vacc 30 MCG/0.3ML Intramuscular SuspensionCharles P House Work Phone: [facility] on above: Series:39-57-8152hpdttzqvo virus vaccine, unspecified formulationCharles P House Work Phone: [phone]-[facility]wlkgNorthland Medical Center 250 DO Work Phone: Payers DatePayer CategoryPayerPolicy [id number]-hbs [id number] 2012Medicare [id number] [id number] 1947 [id number] 2.840.1.047707.3.57[id number] 2.16840.1.459275.3.57[id number] 2.16840.1.831117.3.57[id number] 2.16840.1.020888.3.57[id number] 2.16840.1.509931.3.57[id number] 2.16840.1.606335.3.57[id number] 2.16840.1.343791.3.57[id number] 2.16840.1.962304.3.579.2.71319-48-5123Ftyypeh1003898 2.16840.1.657586.3.57[id number] 2.840.1.149487.3.57[id number] 2.840.1.788063.3.57[id number] 2.840.1.796840.3.57[id number] 2.840.1.166265.3.579.[id number] 2.840.1.885124.3.579.2.4[id number] 2.16840.1.583661.3.579.2.84671-30-2435Lasxisa39248313 2.16840.1.424583.3.579.2.270808-26-6025Fplputa7519425 2.16840.1.993678.3.579.2.495726-46-9670Xthtgbj1273491 2.16840.1.499002.3.579.[id number] 2.16.840.1.146422.3.579.2.766020-40-0614Eoebcrf3613315 2.16.840.1.587383.3.579.2.442[id number] 2.16.840.1.774135.3.579.2.73[id number] 2.16.840.1.713483.3.579.2.8[id number] 2.16.840.1.096722.3.579.2.627489-16-7408Wdczgas635122866 2.16.840.1.994567.3.579.2.076130-30-0465Ekfbszh101683689 2.16.840.1.908594.3.579.2.944220-80-3412Kununzo77508550 2.16.840.1.029004.3.579.2.85126-90-2567Dyejhei15412681 2.16.840.1.190890.3.579.2.727UnknownUnknownHCAP/HFA/FAP [id number] 3oq93742-1384-7198-862y-[id number] 2.840.1.162063.3.579.2.531 Social History DateTypeDetailFacilityStart: 01-29-2023 End: 41-52-8226Cc illicit drug useNo illicit drug use-[facility] 250 DO Work Phone: Comment on above:1 BEER OCCASIONALLY;2 CUPS OF COFFEE DAILY;QUIT MAR 2019;Start: 01-29-2023 End: 16-26-7000Wzb Assigned At [facility] [employer] Other Start: 09-23-2021 End: 09-16-1360Bwkhsyh smoking status NHISEx-smokerDIGNITY [facility] [employer] Phone: End: 81-94-0734Uwymtem of tobacco useCurrent smokerDIGNITY [facility]ALTH [facility] [employer] Phone: End: 37-14-4863Aenyvas of tobacco useCigarette SmokerDIGNITY [facility]ALTH [facility] [employer] Phone: start: 12-02-2021 End: 03-35-6367Taudaiq intakeCurrent drinker of alcohol (finding)[facility] [employer] Phone: start: 03-53-0928Uukkddb SDOH Alcohol Qhtlhnlnk7YFD [employer] Phone: start: 24-00-1406Jthnxnv SDOH Alcohol Std Gfyuvq4UBJ [employer] Phone: start: 96-39-7515Xfamxjp SDOH Alcohol Commentocc beer [facility] [employer] Phone: start: 95-07-3303Pbs Assigned At BirthNot on hattieDIGNITY [facility]ALTH [facility] [employer] Phone: start: 11-18-2021 End: 69-25-8431Apcfhqxg to SARS-CoV-2 (event)Not sureDIGNITY [facility]ALTH [facility] [employer] Work Phone: start: 53-13-1201Fnp Assigned At [facility] Centertart: 01-29-2023 End: 34-80-5430Wktzhzc use and exposureSmokeless tobacco non-userAvita Health System Bucyrus Hospital Work Phone: Start: 00-08-0227Wtejumy CommentoccasionallyUnKettering Health Work Phone: Start: 92-18-9582Dqgqxvx smoking status NHISTobacco smoking consumption unknownBRIGHAM CITY COMM[facility]ITY [facility] HealthcareStart: 70-88-0258Ajuniax Commentcoffee dailyShriners Hospitals for ChildrenStart: 43-13-7252NxfEogjUinlmhdspdOhio Valley HospitalSex Male (finding)[facility] HospitalNEGATED: Highlighted rowStart: NINFHistory of tobacco usePassive [facility] Medical Equipment Procedure CodeEquipment CodeEquipment Original TextEquipment IdentifierDates Capsule endoscopy, for patency of lumen evaluationVideo capsule endoscopy system ()[id number] FDAStart: 83-24-2707Ujhiukn artery closure plug/patch, synthetic polymer()[id number] FDAStart: 03-31-2019 Clinical Notes 08-26-2021 to 01-12-2025 Note Date & BxijKusqUnxqajmc88-98-8281 NoteED Patient Education Note Nephrology Acute Kidney [...] these instructions at home: Medicines ??? Take gjve-nte-roanevj and prescription medicines only as told by [...] your kidneys. Where to find support ??? [place] [employer] Kidney Patients: aakp.org ??? [employer]: akfinc.org Where to find more information ??? National Kidney Foundation: k (more content not included)...[facility]09-03-2025 History of Present illness Narrative* [...] m (6' 1 ) documented in this encounterAvita Health System Bucyrus Hospital Work Phone: 1(633) 837-545108-20-2025 History of Present illness Narrative* Clyde Yoo [...] done in office today documented in this encounterAvita Health System Bucyrus Hospital Work Phone: 1(828) 111-359908-06-2025 History of Present illness Narrative* Veronica Liz [...] exam, discussion and plan. documented in this [facility] Work Phone: 1(651) 565-597808-06-2025 Instructions* Patient Instructions* Evelina Yoder RN - [...] three times a day documented in this [facility] Work Phone: 1(699) 696-541003-06-2025 History of Present illness Narrative* Marciano Hi [...] has periodically been using prescribed or recommended rijb-tcx-cxdbdwi cream with negative improvement. Patient also states he had cold exposure for many years to his feet Patient has history of right foot drop secondary to spinal surgery in the past and refused AFO rx in the past. Allergies: No Known Allergies Past Medical History: Past Medical History: Diagnosis Date Diabetes ([facility]) Medications: Current Outpatient Medications: aspirin 81 [...] and negative PT pedal pulses NEURO: 5.07 [place] Nacho monofilament test diminished to digits and forefoot bilaterally 125Hz tuning fork diminished to 1st MPJ bilaterally ORTHO: Positive pain on palpation to toenails of the left 1,2,3,4,5 toes and right 1,2,3,4,5 toes +4/5dorsiflexion right ankle ASSESSMENT 1. 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) 2. Pain due to onychomycosis of [...] . Patient states that he will use ueke-qec-dvjbklt creams as necessary Marciano Hi DPM documented in this encounterShriners Hospitals for ChildrenCrjqjrcnzw29-41-3593 History of Present illness Narrative* Veronica Liz [...] and diagnosed with TIA. He was at [facility]. He underwent evaluation and was seen [...] on the review of the record from [place]. He was asked To see me to [...] exam, discussion and plan. documented in this encounterAvita Health System Bucyrus Hospital Work Phone: 1(101) 482-766901-29-2025 Instructions* Patient Instructions* Shaina Floyd LPN - [...] 6 months Declines anticoagulation. documented in this encounterAvita Health System Bucyrus Hospital Work Phone: 1(882) 886-482612-26-2024 History of Present illness Narrative* Marciano Hi [...] has periodically been using prescribed or recommended kvoe-hio-nhybrpr cream with negative improvement. Patient also states he had cold exposure for many years to his feet Patient has history of right foot drop secondary to spinal surgery in the past and refused AFO rx in the past. Allergies: No Known Allergies Past Medical History: Past Medical History: Diagnosis Date Diabetes ([facility]) Medications: Current Outpatient Medications: aspirin 81 [...] and negative PT pedal pulses NEURO: 5.07 [place] Nacho monofilament test diminished to digits and forefoot bilaterally 125Hz tuning fork diminished to 1st MPJ bilaterally ORTHO: Positive pain on palpation to nails 1 through 10 +4/5dorsiflexion right ankle ASSESSMENT 1. Diabetes 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, unspecified whether front desk host insulin use ([facility]) 2. Pain due to onychomycosis of [...] . Patient states that he will use fxta-lyp-aekrhlo creams as necessary Marciano Hi DPM documented in this encounterShriners Hospitals for ChildrenMkwvvyxbnt87-15-9831 History of Present illness Narrative* Veronica Liz [...] fibrillation. [facility] [...] exam, discussion and plan. documented in this [facility] Work Phone: 1(158) 711-540311-07-2024 Instructions* Patient Instructions* Carline López LPN - [...] through Care Everywhere. * Heart Healthy Diet (Lithuanian) documented in this [facility] Work Phone: [phone]) 638-161710-17-2024 History of Present illness Narrative* Marciano Hi [...] has periodically been using prescribed or recommended htcm-vdh-ketcvef cream with minimal improvement. Patient also states he had cold exposure for many years to his feet Patient has history of right foot drop secondary to spinal surgery in the past and refused AFO rx in the past. Allergies: No Known Allergies Past Medical History: Past Medical History: Diagnosis Date Diabetes ([facility]) Medications: Current Outpatient Medications: aspirin 81 [...] and negative PT pedal pulses NEURO: 5.07 [place] Nacho monofilament test diminished to digits and [...] . Patient states that he will use tmzb-eus-naojyod creams as necessary Marciano Hi DPM documented in this encounterShriners Hospitals for ChildrenVfusovceyf32-39-8900 History of Present illness Narrative* Veronica Liz [...] exam, discussion and plan. documented in this [facility] Work Phone: 1(787) 462-676305-09-2024 Instructions* Patient Instructions* Shaina Floyd LPN - [...] 6 months with ekg documented in this [facility] Work Phone: 1([phone]) 726-381611-09-2023 History of Present illness Narrative* Veronica Liz [...] done in office today documented in this [facility] Work Phone: 1(697) 274-751711-09-2023 Instructions* Patient Instructions* Clyde Nunez MA - [...] time of your visit. documented in this [facility] Work Phone: 1(988) 812-904803-16-2023 History of Present illness Narrative* Yesterday OV [...] try to retrieve retrieve his record from [facility] 250 DO Work Phone: 1(497) 108-575209-13-2022 History of Present illness Narrative* Valerie Del Toro, COMMUNITY RELATIONS ASSISTANT - [employer] - 12/03/2021 10:12 AM EDT Images from the original note were not included. [employer] Progress Note Date: 12/03/2021 Patient name: Shahrzad [...] (HCC) COPD (chronic obstructive pulmonary disease) (HCC) [id number] Score for Atrial Fibrillation Stroke Risk Risk Factors Component Value C CHF No 0 H HTN Yes 1 A2 Age >= 75 Yes, (76 y.o.) 2 D DM Yes 1 S2 Prior Stroke/TIA No 0 V Vascular Disease No 0 A Age 65-74 No, (76 y.o.) 0 Sc Sex male 0 PII5DE4-EJOk Score 4 Score last updated 12/03/21 10:13 [...] call with further questions or concerns [employer] [phone] * Jasmin Corrales MD - 12/03/2021 8:49 AM EDT [facility] Neurology IN-PATIENT SERVICE [facility] Progress Note Date: 12/03/2021 Patient name: Shahrzad Edgar Date of admission: 11/28/2021 3:15 AM Account: [id number] Date of : 1945 PCP: No primary care provider on file. Room: [address] [place] [address] Code Status: Full Code Chief Complaint: Right [...] He is eager to be discharged to [facility]. Patient counseled regarding treatment follow-up plan, [...] temporal headache with dizziness. Initially evaluated at [facility] and later transferred to [facility] after CT head was done showing an [...] ms QTc Calculation (Bazett) 516 ms R [place] 23 degrees T [place] 48 degrees POC Glucose Fingerstick Collection Time: [...] 1.07 (L) 1.10 - 3.70 k/uL Absolute Mcduffie # 1.20 0.10 - 1.20 k/uL Absolute [...] Primary Problem Cerebrovascular accident (CVA) ([facility]) Active Hospital Problems Diagnosis Date Noted Atrial fibrillation with RVR ([facility]) [I48.91] 12/02/2021 Priority: Medium Type 2 diabetes mellitus without complication, without long-term current use of insulin ([facility]) [E11.9] 12/02/2021 Priority: Medium Primary hypertension [I10] 12/02/2021 Priority: Medium COPD (chronic obstructive pulmonary disease) ([facility]) [J44.9] 12/02/2021 Priority: Medium PAF (paroxysmal atrial fibrillation) ([facility]) [I48.0] 11/29/2021 Priority: Medium Anemia [D64.9] 11/29/2021 Priority: Medium Cerebrovascular accident (CVA) ([facility]) [I63.9] 11/28/2021 Priority: Medium Otitis media [...] medical management PT/OT/ST Plan for discharge to [facility] today Follow-up further recommendations after discussing [...] history and exam findings with the resident/ CANDY MIXER. I reviewed medications, clinical labs, x-rays and other diagnostic tests with the resident/ CANDY MIXER. I have seen and examined the patient and the lamas elements of the encounter have been performed by me. I agree with the assessment, plan and orders as documented by the resident or [employer] M[employer]ER. Impression and Plan: Mr. Shahrzad Edgar is [...] not included. [facility] Office: [phone] Darrius Mattson DO, Valente Kaur DO, Noel [...] Zena Irby MD, Lewis See MD, Blanka Martni, CANDY MIXER, Nicky Gonzalez, CANDY MIXER, Pattie Vasquez, CANDY MIXER, Prem Potter, CANDY MIXER, Adrienne Domingo, MIYA, Marissa Hamilton, CANDY MIXER, Lida Soto, CANDY MIXER, Rosmery Bryan, CANDY MIXER, Cici Antoine, CANDY MIXER, Leslie Chen, CANDY MIXER, Lalito Baker PA-C, Kathy Wilder, PLASTER BLOCK LAYER, Janet Bar, MIYA, Triny Francois, CANDY MIXER, Mary Ortiz, CANDY MIXER, Sue Rivera, CANDY MIXER [facility] IN-PATIENT SERVICE [facility] Progress Note 12/03/2021 8:19 AM Name: Shahrzad Edgar Acct: [id number] Room: 0122/0122-01 Day: 5 Admit Date: 11/28/2021 [...] results found for: POCPH, PHART, PH, POCPCO2, IAQ9PZB, PCO2, POCPO2, PO2ART, PO2, POCHCO3, SDU7CSP, HCO3, NBEA, PBEA, BEART, BE, THGBART, THB, TAP7MDB, LUOF0LLX, V7DDFYKM, O2SAT, FIO2 Lab Results Component Value Date/Time [...] range) infarct in the region of right T9uecpznid division with petechial hemorrhage in areas along [...] range) infarct in the region of right D9kxlkiqgd division with petechial hemorrhage in areas along [...] * (Principal) Cerebrovascular accident (CVA) ([facility]) 11/30/2021 Yes Otitis media with effusion, left 11/28/2021 Yes PAF (paroxysmal atrial fibrillation) ([facility]) 12/02/2021 Yes Anemia 11/29/2021 Yes Atrial fibrillation with RVR ([facility]) 12/02/2021 No Primary hypertension 12/02/2021 Yes Type 2 diabetes mellitus without complication, without long-term current use of insulin ([facility]) 12/02/2021 Yes COPD (chronic obstructive pulmonary disease) ([facility]) 12/02/2021 Yes Plan: Middle ear mastoid [...] 12/02/2021 3:22 PM EDT Physical Therapy Facility/Department: [address] NEURO ICU Daily Treatment Note NAME: [...] verbally reminded to do so; able to statistical financial analyst margie stedy with max A+1, again leans [...] with least restrictive AD Additional Goals?: No Business Economist Goals Additional Goals?: No Education Patient Education [...] EDT Speech Language Pathology Speech Language Pathology [facility] Cognitive and Speech Treatment Note Date: 12/02/2021 Patient s Name: Shahrzad Edgar Diagnosis: Patient Active Problem List Diagnosis Code Cerebrovascular accident (CVA) ([facility]) I63.9 Otitis media with effusion, left H65.92 History of atrial fibrillation Z86.79 Anemia D64.9 Pain: 0/10 Cognitive Treatment Treatment time: 1185-4056 Subjective: [x] Alert [x] Cooperative [] Confused [] Agitated [] Lethargic Objective/Assessment: Recall: Delayed Recall - Associated Lists: 11/29 independently Organization: Category Members - [place]: 02/01 increased to 03/03 with mod verbal [...] recommended at discharge. Completed by: Sheri Serna Bulwark Carpenter Clinician Cosigned By: Ayla White M.S.CCC/MILLER WOOD FLOUR * Evelin Griffin RN - 12/02/2021 8:59 AM EDT [place] Delivery Aide Documentation Note Admission Dx: Brain mass [G93.89] Past Medical History: has a past medical history of Arthritis, COPD (chronic obstructive pulmonary disease) (HCC), Diabetes mellitus (HCC), History of blood transfusion, and Hypertension. Previous Testing: ECHO 11/30/2021: EF 54%, negative bubble study, no valvular abnormalities. Previous office/hospital visit: None Evelin Griffin RN [place] Delivery Aide * Zena Irby MD - 12/01/2021 11:32 [...] did nothelp. Patient was initially evaluated at [facility] and noted to have left upper [...] prior to transfer over. Upon arrival at [place], patient's blood pressure was normotensive. Evaluated by [...] started at that time. Continue on Statin PT/OT/MILLER WOOD FLOUR Urinary retention - will obtain urology consulation [...] 11/30/2021 2:49 PM EDT Physical Therapy Facility/Department: [address] NEURO ICU Daily Treatment Note Name: [...] decrease pushing with R UE. OutComes Score AM-[facility] Score -[facility] Inpatient Mobility Raw Score : 8 (11/30/211436) -[facility] Inpatient T-Scale Score : 28.52 (11/30/211436) Mobility [...] with least restrictive AD Additional Goals?: No Business Economist Goals Additional Goals?: No Education Patient Education [...] not help. He was seen by his coding clerks supervisor and was told that his BP was elevated; he was started on lisinopril 5 mg daily. He was initially evaluated at [facility]. Patient was noted to have left [...] IVPB x1 prior to be transferred to [facility] for higher level of care. [...] to ensure the accuracy of this automated dice maker, some errors in dice maker may have occurred. Associated attestation - Allan [...] 11/29/2021 5:44 PM EDT Occupational Therapy Facility/Department: [address] NEURO ICU Occupational Therapy Initial Assessment [...] use in appartment) Transfer Assistance: Independent Active Refinery Operator Reforming Unit: Yes Mode of Transportation: Car Occupation: Retired Leisure & Hobbies: Rundownino Objective Safety Devices Type of Devices: All [...] 11/29/2021 3:46 PM EDT Physical Therapy Facility/Department: [address] NEURO ICU Physical Therapy Initial Assessment [...] exact time). He was initially evaluated at [facility]. Patient was reported to have been at coding clerks supervisor earlier today, and BP was elevated, but patient unable to state how elevated. No improvement with Excedrin. Patient denies any other blood thinners aside from aspirin. At [facility] facility patient noted to have [...] did have purulent material. CT head from [facility] showed area of hypoattenuation in right parietotemporal region withright sided sulcal effacement and loss of micthell white differentiation concerning for an acute infarct. [...] use in appartment) Transfer Assistance: Independent Active Refinery Operator Reforming Unit: Yes Mode of Transportation: Car Occupation: Retired Leisure & Hobbies: Studio Kate Vision/Hearing Vision: Needs glasses for reading Hearing: [...] sitting EOB for ~13 mins. AM-PAC Score AM-[facility] Inpatient Mobility Raw Score : 9 (11/29/211544) AM-[facility] Inpatient T-Scale Score : 30.55 (11/29/211544) Mobility Inpatient CMS 0-100% Score: 81.38 (11/29/211544) Mobility Inpatient [facility] G-Code Modifier : CM (11/29/211544) Goals Short [...] least restrictive AD Additional Goals?: No Senior Care Goals Additional Goals?: No Education Patient Education [...] Patient's name: Shahrzad Edgar Patient's account/billing number: [id number] Patient's Date of : 1945 Age: 76 y.o. Date of Admission: 11/28/2021 3:15 AM Length of stay during current admission: 1 Primary Care Physician: No primary care provider on file. Code Status: Full Code Mode of physician to physician communication: [] Via telephone [x] In person Date and time of sign-out: 11/29/2021 2:50 PM Accepting Neurology ANIMAL HUSBANDRY WORKER: Adina Do NP Accepting team's attending: Dr. [...] EDT Speech Language Pathology Speech Language Pathology [facility] Dysphagia Treatment Note Date: 11/29/2021 [...] Provided with Soft Solids, Puree, Thin and [place] thick trials. Pt. With no overt s/s [...] discharge. Treatment completed by: ROBBY Hall, M.S. CCC-MILLER WOOD FLOUR * Sheri Serna - 11/29/2021 11:47 AM EDT Speech Language Pathology Speech Language Pathology [facility] Cognitive and Speech Treatment Note [...] 8/9 with repetitions Organization: Category Members - [place]: 27/36 increased to 36/36 with min-mod verbal [...] recommended at discharge. Completed by: Sheri Serna Bulwark Carpenter Clinician Cosigned By: Ayla White M.S.CCC/MILLER WOOD FLOUR * Joseph Mcdonnell, PT - 11/29/2021 9:28 [...] Name: Shahrzad Edgar Patient : 1945 Room[facility]0122-01 Code Status: Full Code Allergies: Allergies Allergen [...] Guevara Kaur DO Neuro Critical Care Pager [phone] 11/29/2021 6:48 AM Associated attestation - Neal [...] prophylaxis. Maintain SBP < 160. Incentive spirometry. MILLER WOOD FLOUR eval. PT/OT. Insulin sliding scale. Stepdown. Discharge planning. I independently reviewed all labs, imaging and EKG tracings * ROBBY Hall - 11/28/2021 3:02 PM EDT Speech Language Pathology Facility/Department: [address] [facility]URO ICU CLINICAL BEDSIDE SWALLOW EVALUATION [...] exact time). He was initially evaluated at [facility]. Patient was reported to have been at coding clerks supervisor earlier today, and BP was elevated, but patient unable to state how elevated. No improvement with Excedrin. Patient denies any other blood thinners aside from aspirin. [facility] to [facility] [...] did have purulent material. CT head from [facility] showed area of hypoattenuation in [...] prior to transfer to Neuro ICU at [place]. Pain: Pain Assessment Pain Assessment: 0-10 Pain [...] with partial PO only Treatment Plan Requires MILLER WOOD FLOUR Intervention: Yes D/C Recommendations: Ongoing speech therapy [...] Patient Education Response: Needs reinforcement Therapy Time [id number] ROBBY Hall 11/28/2021 3:02 PM * Sheri Serna - 11/28/2021 1:30 PM EDT Speech Language Pathology Facility/Department: [address] NEURO ICU Initial Speech/Language/Cognitive Assessment NAME: [...] exact time). He was initially evaluated at [facility]. Patient was reported to have been at coding clerks supervisor earlier today, and BP was elevated, but [...] prior to transfer to Neuro ICU at [place]. Pain: Pain Assessment Pain Assessment: 0-10 Pain [...] noted deficits. Education provided. Recommendations: Recommendations Requires MILLER WOOD FLOUR Intervention: Yes Patient Education: yes Patient Education [...] With: Friend(s) Type of Home: Apartment Active Refinery Operator Reforming Unit: Yes Vision Vision: Within Functional Limits Hearing [...] 1058 Minutes 12 Completed by: Sheri Serna Bulwark Carpenter Clinician Cosigned By: Ayla White M.S.CCC/MILLER WOOD FLOUR * Raymundo Dallas RPH - 11/28/2021 6:36 AM EDT [facility] Pharmacokinetic Monitoring Service - [...] 11/28/2021 6:35 AM documented in this encounterBON [employer] Phone: 1(123) 698-903209-12-2022 Hospital Discharge instructions* Discharge Instr - NORMA* Reese Schofield RN - 12/02/2021 2:45 PM EDT Continuity of Care Form Patient Name: Shahrzad Edgar : 1945 Admit date: 11/28/2021 Discharge date: 12/03/2021 Code Status Order: Full Code Advance Directives: Admitting Physician: Allan Pemberton DO PCP: No primary care provider on file. Discharging Nurse: reese Discharging Hospital Unit/Room#: 0122/0122-01 Discharging Unit Phone Number: [phone] Emergency Contact: Extended Emergency Contact Information Primary Emergency Contact: nadine allen [place] Relation: Other Preferred language: Lithuanian Final Canoe Inspector needed? No Past Surgical History: No past surgical history on file. Immunization History: Immunization History Administered Date(s) Administered COVID-19, PFIZER PURPLE top, DILUTE for use, (age 12 y+), 30mcg/0.3mL 05/21/2020, 06/12/2020, 01/15/2021 Active Problems: Patient Active Problem List Diagnosis Code Cerebrovascular accident (CVA) ([facility]) I63.9 Otitis media with effusion, left [...] Assisted Dressing Assisted Toileting Independent Feeding Independent City Clerk Independent Med Delivery whole Wound Care Documentation [...] Dysphagia soft Routes of Feeding: Oral Liquids: [place] Thick Liquids Daily Fluid Restriction: 1500 Last [...] Readmission: 13 Discharging to Facility/ Agency Name: [facility] Address: Phone: Fax: Dialysis Facility (if applicable) Name: Address: Dialysis Schedule: Phone: Fax: Manager Secondary/Campaign Consultant signature: PHYSICIAN SECTION Prognosis: {Prognosis:8612548077} Condition at Discharge: { Patient Condition:874087558} Rehab Potential (if transferring to Rehab): {Prognosis:6279543007} Recommended Labs or Other Treatments After Discharge: Physician Certification: I certify the above information and transfer of Shahrzad Edgar is necessary for the continuing treatment of the diagnosis listed and that he requires {Admit to Appropriate Level of Care:43288} for {GREATER/LESS:163744785} 30 days. Update Admission H&P: {CHP DME Changes in HandP:011101312} PHYSICIAN SIGNATURE: * Attachments The following attachments cannot be sent through Care Everywhere. * Statins (Lithuanian) * Ischemic Stroke: General Info (Lithuanian) * Stroke: Symptoms: General Info (Lithuanian) * Diabetes: Heart Attack and Stroke Risk: General Info (Lithuanian) documented in this encounterBON [facility] Work Phone: [phone]) 978-280806-28-2022 Evaluation note* Encounter Date Diagnosis Assessment Notes Treatment Notes Treatment Clinical Notes Aug, Left hand pain (ICD-10 - M79.642 ) Aug, losed displaced fracture of proximal phalanx of left little finger with routine healing, subsequent encounter (ICD-10 - S62.617D)Radiographs reviewed with patient today. Discussed with patient to work on range of motion exercises [employer] Other 06-09-2022 Evaluation note* Encounter Date Diagnosis [...] and elevate to decrease pain and swelling. [employer] Other 06-06-2022 NotePROCEDURE: XR HAND LT MIN 3V COMPARISON: None. HISTORY: Pain FINDINGS: BONES:Subtle contour deformity identified at the base of the fifth proximal phalanx. No dislocation. Mild degenerative changes. SOFT TISSUES:Negative. No visible soft tissue swelling. EFFUSION:None visible. OTHER: Negative. IMPRESSION: Suspected nondisplaced fracture base of the fifth proximal phalanx Electronically authenticated by: REINA GO Date: 2021-08-26 10:45[facility]* Diagnosis Cerebrovascular accident (CVA), unspecified mechanism [...] (HCC) Intracerebral hemorrhage documented in this encounter [facility] Work Phone: evaluation noteNo assessment information available [facility] Work Phone: Evaluation note* Diagnosis Single vessel coronary disease- Primary Essential hypertension Unspecified essential hypertension Mixed hyperlipidemia Persistent atrial fibrillation (CMS/HCC) Atrial fibrillation Anemia, unspecified type BMI 28.0-28.9,adult documented in this encounter [facility] Work Phone: Evaluation note* Diagnosis High risk medication use- Primary Single vessel coronary disease Essential hypertension Unspecified essential hypertension Mixed hyperlipidemia Persistent atrial fibrillation (Multi) Atrial fibrillation BMI 28.0-28.9,adult Cerebrovascular accident (CVA), unspecified mechanism (Multi) Anemia, unspecified type Former smoker Personal history of tobacco use, presenting hazards to health documented in this encounter [facility] Work Phone: Evaluation note* Diagnosis Xerosis cutis- Primary Other specified disease of sebaceous glands Onychomycosis Dermatophytosis of nail Pain due to onychomycosis of toenails of both feet Right foot drop Other acquired deformity of ankle and foot documented in this encounter [facility] HealthcareEvaluation note* Diagnosis Persistent atrial fibrillation (Multi)- Primary Atrial fibrillation Single vessel coronary disease Mixed hyperlipidemia Essential hypertension Unspecified essential hypertension Anemia, unspecified type Cerebrovascular accident (CVA), unspecified mechanism (Multi) High risk medication use Former smoker Personal history of tobacco use, presenting hazards to health BMI 27.0-27.9,adult documented in this encounter [facility] Work Phone: Evaluation note* Diagnosis Xerosis cutis- Primary Other specified disease of sebaceous glands Diabetes 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, unspecified whether front desk host insulin use ([facility]/HCC) Pain due to onychomycosis of toenails of both feet Right foot drop Other acquired deformity of ankle and foot documented in this encounter [facility] HealthcareEvaluation note* Diagnosis TIA (transient ischemic [...] health BMI 26.0-26.9,adult documented in this encounter [facility] Work Phone: Evaluation note* Diagnosis Persistent atrial [...] electrocardiogram (ECG) (EKG) documented in this encounter [facility] Work Phone: Evaluation note* Diagnosis Xerosis cutis- Primary Other specified disease of sebaceous glands Diabetes 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, unspecified whether shelter insulin use ([facility]) Pain due to onychomycosis of toenails of both feet Right foot drop Other acquired deformity of ankle and foot documented in this encounter [facility] HealthcareEvaluation note* Diagnosis Persistent atrial fibrillation (Multi)- Primary Atrial fibrillation High risk medication use documented in this encounter [facility] Work Phone: Evaluation note* Diagnosis High risk medication use Persistent atrial fibrillation (Multi) Atrial fibrillation documented in this encounter [facility] Work Phone: History general Narrative - Reported* Type Description Date Medical History [place] Medical HistoryDMMedical HistoryHTNSurgical HistorycholecystectomySurgical Historyback surgerySurgical Historyelbow surgerySurgical Historycataracts, bilaterallySurgical HistoryT & AHospitalization Historysee aboveHospitalization HistoryMI1-2019 [facility] [employer] Other History of Present illness Narrative* Is [...] advised to repeat lab work as ordered [facility] DO Work Phone: History of Present [...] 5. 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 Unfortunately he did not tolerate Eliquis and this was discontinued. Patient did not bring his medication with him. He reports he was in the hospital in [place] in [place] after a stroke. Hedoes not know if [...] 4. I to retrieve his record from [place] * 5. I advised the patient TO bring his medication with him and tried to write things down concerninghis memory does not appears to be good and he has no good social support system [facility] DO Work Phone: History of Present [...] has not been using prescribed or recommended bwra-frk-vmcrjui cream with negative improvement. Patient has history [...] and negative PT pedal pulses NEURO: 5.07 [place] [employer] monofilament test diminished to digits and forefoot bilaterally 125Hz tuning fork diminished to 1st MPJ bilaterally ORTHO: Positive pain on palpation to toenails of the left 1,2,3,4,5 toes and right 1,2,3,4,5 toes +4/5dorsiflexion right ankle ASSESSMENT 1. Diabetes 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, unspecified whether front desk host insulin use (HCC) 2. Pain due to [...] . Marciano Hi DPM documented in this encounterShriners Hospitals for [facility]Re[facility] for referral (narrative)No reason for referral information availableKettering Health [facility] Ctr Work Phone: Summary Purpose Family History [...] Procedures ECG 12 Lead Veronica Liz MD [address] [place] [address] 2, [place] [id number] Referral IDStatusReasonStart DateExpiration DateVisits RequestedVisits [id number] [id number] / ProceduresReferred By ContactReferred To ContactCardiology Diagnoses Single vessel coronary disease Essential hypertension Procedures Follow Up In Cardiology Veronica Liz MD [address] [facility] 2, [place] [id number] Veronica Liz MD [address] [facility] 2, [place] 1201370 Referral IDStatusReasonStart DateExpiration DateVisits RequestedVisits [id number]/9/202311/8/227636OetxrjutqBmvjfyrch / Procedures Referred By ContactReferred To ContactRadiology Diagnoses Cerebrovascular accident (CVA), unspecified mechanism (HCC) Procedures CT HEAD WO CONTRAST Alexander Grey, COMMUNITY RELATIONS ASSISTANT - CANDY MIXER [address] [facility] [address] [place] [address] [place] [address] Referral IDStatusReasonStart DateExpiration DateVisits RequestedVisits [id number]/29/20229/29/202311 Additional Source Comments (unrecognized sect ion and [...] section and content) DATE CREATED AUTHOR 06/11/2018 [facility] DATE CREATED AUTHOR AUTHOR'S ORGANIZ ATION 12/17/2021 [facility] DATE CREATED AUTHOR AUTHOR'S ORGANIZ ATION 05/18/2022 [facility] DATE CREATED AUTHOR AUTHOR'S ORGANIZ ATION 06/06/2022 [employer] DATE CREATED AUTHOR AUTHOR'S ORGANIZ ATION 08/07/2022 [facility] DATE CREATED AUTHOR AUTHOR'S ORGANIZ ATION 11/05/2024 [facility] DATE CREATED AUTHOR AUTHOR'S ORGANIZ ATION 11/25/2024 [facility] DATE CREATED AUTHOR AUTHOR'S ORGANIZ ATION 12/23/2024 [facility] DATE CREATED AUTHOR AUTHOR'S ORGANIZ ATION 01/14/2025 [facility] REASON FOR VISIT (unrecogniz ed section and content) ReasonCommentsFollow-up6 monthSpecialtyDiagnoses / ProceduresReferred By Contact Referred To Contact Diagnoses Persistent atrial fibrillation (CMS/HCC) Procedures ECG 12 Lead Veronica Liz MD [address] [facility] 2, [address] [address] Referral IDStatusReasonStart DateExpiration DateVisits RequestedVisits [id number] [id number]-fv4 monthsSpecialtyDiagnoses / ProceduresReferred By ContactReferred To Contact Cardiology Diagnoses Single vessel coronary disease Essential hypertension Procedures Follow Up In Cardiology Veronica Liz MD [address] [facility] 2, [address] [address] Veronica Liz MD [address] [facility] 2, [place] [address] [place] [address] Referral IDStatusReasonStart DateExpiration DateVisits RequestedVisits [id number]/9/202311/341658AuzxgeVvrwthsxBqodhjv CareNon DM NailsSpecialtyDiagnoses / ProceduresReferred By ContactReferred To Contact Cardiology Diagnoses Persistent atrial fibrillation (Multi) Procedures Follow Up In Cardiology Veronica Liz MD [address] [facility] 2, [place] [address] [place], [place] [address] Phone: tel: fax: Veronica Liz MD [address] [facility] 2, [place] [address] [place] [address] Phone: tel: fax: Referral IDStatusReasonStart DateExpiration DateVisits RequestedVisits [id number]/9/20245/013117LrxovhEspbxdnlFnejdru CareNon dm nail careReasonCommentsForenown health – [facility] discharge 04/06 TIA expressive aphasiaSpecialtyDiagnoses / ProceduresReferred By ContactReferred To Contact Diagnoses Persistent atrial fibrillation (Multi) Procedures ECG 12 Lead Veronica Liz MD [address] [facility] 2, [address] [address] Phone: tel: fax: Referral IDStatusReasonStart DateExpiration DateVisits RequestedVisits [id number]/29/20251/094615DrqvjkFnvsncowQvddlc-sq4 months Persistent atrial fibrillation (MultiSpecialtyDiagnoses / ProceduresReferred By ContactReferred To ContactCardiology Diagnoses Single vessel coronary disease Procedures Follow Up In Cardiology Veronica Liz MD [address] [facility] 2, [place] [address]370 Phone: tel: fax: Veronica Liz MD [address] [place] [address] 2, [place] [address] Phone: tel: fax: Referral IDStatusReasonStart DateExpiration DateVisits RequestedVisits [id number]/7/202411/7/910487EcnigeVlvkbsctJvjtzfp CareReason CommentsEKG visitSpecialtyDiagnoses / ProceduresReferred By ContactReferred To Contact Diagnoses High risk medication use Persistent atrial fibrillation (Multi) Procedures ECG 12 Lead Veronica Liz MD [address] [place] [address], [place] [address] Phone: tel: fax: Referral IDStatReasonStart DateExpiration DateVisits RequestedVisits [id number]/6/20258/682890YzjbkxLipzowsxImeqzbgd ECG2 week EKG follow up for Persistent atrial fibrillationSpecialtyDiagnoses / Procedures Referred By ContactReferred To Contact Diagnoses High risk medication use Persistent atrial fibrillation (Multi) Procedures ECG 12 Lead Veronica Liz MD [address] [place] [address] 2, [place] [address] Phone: tel: fax: Referral IDStatReasonStart DateExpiration DateVisits RequestedVisits [id number]/20/20258/ Ordered Prescriptions (unrec ognized section and content) [...] Reason: Order parameters not met - Comment: [id number]=[phone] * 1203 (Not Given - Provider: Huang [...] EVERY 8 HOURS PRN, Starting on 12/02/21 [id number], Until Discontinued, Bladder Spasms, Note: Additive effect [...] DateEnd Date Valente Tobin DO [address] [facility]ENTER[facility] [place] [id number] PCP - General03/23/99Team MemberRelationshipSpecialtyStart DateEnd Date Unallocated, Godwin Ojeda MD [address] [place] [address] PCP - [facility]06/04/23Team MemberRelationshipSpecialtyStart DateEnd Date Unallocated, Godwin Ojeda MD [address] [place] [address] PCP - [facility]06/04/23Team MemberRelationshipSpecialtyStart DateEnd Date Veronica Liz MD [address] [facility] 2, [address] [place] [address] P[facility] - [facility] Attributed Provider03/23/23Team MemberRelationshipSpecialtyStart DateEnd Date Veronica iLz MD [address] [place] [address] 2, [address] [place] [address] PCP - [facility] Attributed Provider03/23/23 Zachariah Ocoha MD [address] [facility] [place] [address] [facility] - [facility]04/20/24Team MemberRelationshipSpecialtyStart DateEnd Date Zachariah Ochoa MD [address] [facility] [place] [address] PCP - [facility]04/[facility]24Te MemberRelationshipSpecialtyStart DateEnd Date Zachariah Ochoa MD [address] [facility] [place] [place] [address] PCP - [facility]04/20/24Te MemberRelationshipSpecialtyStart DateEnd Date Zachariah Ochoa MD [address] [facility] [place] [place] [address] PCP - [facility]04/20/24 Team Status: Inactive Member Role [...] BE BASED ON THE PRIMARY CLINICAL RECORDS. [facility]. provides no warranty or guarantee of the accuracy or completeness of information in this document.
[2025-01-16] MEDS: SOTALOL HCL 80 MG TABLET 40 MG PO (08:33)
[2025-01-16] MEDS: DOXYCYCLINE HYCLATE 100 MG in 0.9 % SODIUM CHLORIDE 100 ML IV ×2 (08:33→20:43)
[2025-01-16] MEDS: ASPIRIN 81 MG TABLET.DR PO (08:34)
[2025-01-16] MEDS: ATORVASTATIN CALCIUM 40 MG TABLET 80 MG PO (08:34)
[2025-01-16] MEDS: LISINOPRIL 5 MG TABLET PO (08:34)
--- NOTE | 2025-01-16 09:20 | PM.PN ---
Progress Note: Subjective Subjective Interval history: Patient continues to report pain in the left chest wall Minimal cough. No abdominal pain. No nausea vomiting. Exam Narrative Exam Narrative: [pt is awake and alert. oriented to place, time and person HEENT: [place] conjunctiva and NL buccal mucosa Neck: Supple, no tenderness Endocrine: No Thyromegaly. Vascular: No JVD or carotid bruit. Lymphatic: No cervical lymphadenopathy. Chest: CTA no DTP. Tenderness over the left anterior chest wall. Heart RRR, no extra sound or murmur. Abd: Soft, no tenderness, no rebound and no rigidity. Increase abd girth therefore clinically I could not exclude the possibility of intra abd mass or organomegaly. LE: No cyanosis or clubbing, no varices or edema. Neuro: A A O. Nl speech, comprehension and attention. Nl and symetrical motor and tone examination through out. []] Constitutional Vital Signs, click to edit/add: Last Vital Signs Temp 98.1 F 01/16/25 07:33 Pulse 61 01/16/25 07:33 Resp 18 01/16/25 07:33 BP 159/79 H 01/16/25 07:33 Pulse Ox 91 L 01/16/25 07:33 O2 Del Method Room Air 01/16/25 07:33 Progress Note: Objective Labs Labs: Short CBC 01/15/25 01/16/25 Range/Units 13:15 05:53 WBC 8.7 8.4 (4.0-11.0) 10^3/uL Hgb 10.2 L 9.4 L (14.0-18.0) g/dL Hct 30.6 L 28.0 L (42.0-54.0) % Plt Count 267 248 (150-450) 10^3/uL BMP 01/15/25 01/16/25 13:15 05:53 Sodium 137 135 L Potassium 4.5 4.6 Chloride 100 101 Carbon Dioxide 28.4 25.0 BUN 19.0 H 19.0 H Creatinine 1.34 H 1.27 Glucose 112 H 112 H Calcium 8.6 8.7 Progress Note: A&P Assessment and Plan (1) Fracture of rib: Qualifiers: Encounter type: subsequent encounter Fracture healing: with routine healing Fracture type: closed Laterality: left Rib fracture type: single rib Qualified Code(s): S22.32XD - Fracture of one rib, left side, subsequent encounter for fracture with routine healing (2) COPD (chronic obstructive pulmonary disease): Qualifiers: COPD type: unspecified COPD Qualified Code(s): J44.9 - Chronic obstructive pulmonary disease, unspecified (3) History of stroke: (4) Foot drop, bilateral: (5) Hypertension: Qualifiers: Hypertension type: primary hypertension Qualified Code(s): I10 - Essential (primary) hypertension (6) Lung mass: (7) Obstructive pneumonia: (8) Atrial fibrillation: Qualifiers: Atrial fibrillation type: persistent (not longstanding) Qualified Code(s): I48.19 - Other persistent atrial fibrillation Plan Obstructive pneumonia Continue doxycycline. Change antibiotic from ceftriaxone to Zosyn. Hilar mass seen on CT completed at [facility] several days ago. Left-sided with mediastinal and suprahilar lymphadenopathy. Highly suspicious for malignancy. Likely patient will require bronchoscopy, washing and biopsy. We will arrange for that for him. CKD Monitor kidney function. Avoid nephrotoxic drugs. Anemia, no evidence of acute blood loss. Could be related to underlying malignancy. Patient will likely require to have anemia workup to be done in the outpatient setting to be handled by PCP in collaboration with other needed outpatient providers. This may include but not limited to EGD, colonoscopy, referral to see hematology and other needed age-appropriate cancer screening. Left seventh rib fracture, previously seen T7/8 T6 compression fracture. Pain management Suspect vitamin D deficiency and osteoporosis Check a vitamin D level Recommend DEXA scan in the outpatient setting to be arranged by PCP. Paroxysmal A-fib Patient is on sotalol and recommended not to be on anticoagulation. Not sure if there is any documented contraindication for coagulation Meanwhile keep him on Lovenox subcu. Old stroke seen on CT imaging. The CAT scan completed after that is several days ago showed chronic moderate to large right-sided and moderate left-sided infarct. This could be embolic phenomena. Patient stated that his aircraft painter apprentice instructed him not to be on a blood thinner. We will follow-up on this for sure. Meanwhile keep him on Lovenox subcu Hypertension Continue lisinopril Chronic, subacute medical conditions not listed above, abnormal labs and imaging. These would need to be addressed. Could be addressed later on or in the outpatient setting by PCP collaboration with other needed outpatient providers when time and condition are appropriate.
--- NOTE | 2025-01-16 09:31 | CM.NOTE ---
Rounds made with Dr. Wiggins. Discussed with pt diagnosis and plan of care. I will obtain records from [facility] per 's request.
[2025-01-16 09:40] LABS: Alanine Aminotransferase 16 U/L (16-63); Albumin Globulin Ratio 0.8; Albumin Level 2.8 g/dL (3.4-5.0); Alkaline Phosphatase 128 U/L (46-116); Aspartate Amino Transferase 17 U/L (15-37); Globulin 3.7 g/dL; Magnesium 1.8 mg/dL (1.8-2.4); Total Protein 6.5 g/dL (6.4-8.2)
--- NOTE | 2025-01-16 12:28 | PM.EN ---
Event Note Event Note: I was able to obtain records from his vascular neurologist office. Patient was seen by Dr. Larson on 10/26/2024. Dr. Larson documented that he revisited the issue of anticoagulation with the patient at great length. He discussed his increased risk having embolic stroke. He discussed the possible need of reinitiation of blood thinners and/or Watchman device. Per documentation, patient understood the risk very well and decided adamantly against anticoagulation and/or Watchman procedure. Patient was in agreement to continue aspirin.
--- NOTE | 2025-01-16 13:46 | SWNOTE1 ---
Medicare Outpatient Observation Notice reviewed and discussed with patient. Pt. verbalized understanding and signed the form. Original given to patient and copy placed in patient?s chart.
--- NOTE | 2025-01-16 13:48 | SWNOTE1 ---
SW met with pt to discuss dc needs. Pt lives at home with a lady friend. Pt is usually independent, but has a walker at home. Pt has no services coming in at this time. Pt denies any discharge needs at this time. Pt did ask SW about his conversation with doctor and about a mass they had found and follow up in regards to this. Pt was uncertain if he was being transferred and where this follow up would take place. SW to speak with pt's nurse. At this time pt has no other anticipated discharge needs. SW spoke to pt's nurse and no transfer and pt will need outpt follow up at discharge. SW let pt know this information.
[2025-01-16] MEDS: DIPHENOXYLATE HCL 2.5 MG/ATROPINE 0.025 MG TABLET 2 TAB PO (14:16)
[2025-01-16] MEDS: PIPERACILLIN SODIUM/TAZOBACTAM 3.375 GM in 0.9 % SODIUM CHLORIDE 50 ML IV ×2 (14:16→22:28)
[2025-01-16] MEDS: ENOXAPARIN SODIUM 40 MG/0.4 ML SYRINGE SUBQ (20:42)
[2025-01-16] MEDS: LISINOPRIL 5 MG TABLET 10 MG PO (20:42)
[2025-01-16] MEDS: SOTALOL HCL 80 MG TABLET PO (20:43)
[2025-01-16] MEDS: 0.9 % SODIUM CHLORIDE 250 ML 10 ML IV (20:52)
[2025-01-17 04:00] VITALS: BP 118/59; PULSE 61; O2SAT 90
[2025-01-17] MEDS: METHOCARBAMOL 500 MG TABLET PO ×2 (06:09→11:18)
[2025-01-17] MEDS: PIPERACILLIN SODIUM/TAZOBACTAM 3.375 GM in 0.9 % SODIUM CHLORIDE 50 ML IV (06:12)
[2025-01-17 08:00] VITALS: TEMP 36.7
[2025-01-17] MEDS: LISINOPRIL 5 MG TABLET 10 MG PO (08:18)
[2025-01-17] MEDS: DOXYCYCLINE HYCLATE 100 MG in 0.9 % SODIUM CHLORIDE 100 ML IV (08:18)
[2025-01-17] MEDS: ATORVASTATIN CALCIUM 40 MG TABLET 80 MG PO (08:18)
[2025-01-17] MEDS: ASPIRIN 81 MG TABLET.DR PO (08:18)
[2025-01-17] MEDS: ACETAMINOPHEN 500 MG TABLET 650 MG PO (08:21)
[2025-01-17 09:00] VITALS: BP 114/56; PULSE 66; O2SAT 93
[2025-01-17] MEDS: SOTALOL HCL 80 MG TABLET PO (09:06)
[2025-01-17 09:34] VITALS: O2SAT 93
--- NOTE | 2025-01-17 10:10 | CM.NOTE ---
Rounds made with Dr. Wiggins, discussed with pt discharge to home today and f/u with pulmonology and PCP. Pt verbalizes understanding. MS engineering secretary attempted to contact Dr. Vázquez office for appointment. Dr. Pringle office will not schedule appointment, updated Dr. Wiggins. CM will call Dr. Modi's office and attempt to set up appointment.
--- NOTE | 2025-01-17 12:31 | CM.NOTE ---
CM attempted to reach Dr. Modi office for f/u appointment. Office reopens at 1:00.
--- NOTE | 2025-01-17 13:44 | PM.DS1 ---
DS: Providers Provider Date of admission: 01/15/25 10:57 Primary care physician: Raphael Avila MD Consults: 01/15/25 13:28 Occupational Therapy Eval and Treat Routine Reason for consultation: recent fall, h/o stroke Physical Therapy Eval and Treat Routine Reason for consultation: recent fall, h/o stroke DS: Diagnosis Discharge Diagnosis (1) Fracture of rib: Qualifiers: Encounter type: subsequent encounter Fracture healing: with routine healing Fracture type: closed Laterality: left Rib fracture type: single rib Qualified Code(s): S22.32XD - Fracture of one rib, left side, subsequent encounter for fracture with routine healing (2) COPD (chronic obstructive pulmonary disease): Qualifiers: COPD type: unspecified COPD Qualified Code(s): J44.9 - Chronic obstructive pulmonary disease, unspecified (3) History of stroke: (4) Foot drop, bilateral: (5) Hypertension: Qualifiers: Hypertension type: primary hypertension Qualified Code(s): I10 - Essential (primary) hypertension (6) Lung mass: (7) Obstructive pneumonia: (8) Atrial fibrillation: Qualifiers: Atrial fibrillation type: persistent (not longstanding) Qualified Code(s): I48.19 - Other persistent atrial fibrillation Plan As listed above, below and others that are not listed DS: Summary Hospital Course Hospital Course: Mr. Mcnair is a 79-year-old gentleman who came in with chest wall pain. Obstructive pneumonia Continue doxycycline. Change antibiotic from ceftriaxone to Zosyn. Patient will be discharged home on Augmentin. Hilar mass seen on CT completed at [facility] several days ago. Left-sided with mediastinal and suprahilar lymphadenopathy. Highly suspicious for malignancy. Likely patient will require bronchoscopy, washing and biopsy. I had communicated with the gas line servicer Dr. Vázquez who reviewed the imaging from [facility] emergency room and determined that he would not be able to do bronchoscopy and biopsy. He recommended patient to be referred to [place] or [place]. We communicated with Dr. Modi's office but unable to provide appointment until chest imaging are reviewed. We will communicate with his primary care doctor who would collaboratively arrange for patient to follow-up with pulmonary and subsequently with oncology. KYLE, resolved with IV fluid infusion suggestive of prerenal azotemia. CKD Monitor kidney function. Avoid nephrotoxic drugs. Anemia, no evidence of acute blood loss. Could be related to underlying malignancy. Patient will likely require to have anemia workup to be done in the outpatient setting to be handled by PCP in collaboration with other needed outpatient providers. This may include but not limited to EGD, colonoscopy, referral to see hematology and other needed age-appropriate cancer screening. Left seventh rib fracture, previously seen T7/8 T6 compression fracture. Pain management Suspect vitamin D deficiency and osteoporosis Check a vitamin D level. Vitamin D level is low. Patient will be started on vitamin D2 50,000 unit weekly. Recommend DEXA scan in the outpatient setting to be arranged by PCP. Paroxysmal A-fib Patient is on sotalol and recommended not to be on anticoagulation. I communicated with Dr. Larson's office. Conversation regarding anticoagulation risk and benefit took place with the patient as per Dr. Larson. Patient declined to start anticoagulation. Dr. Larson also discussed with the patient the possible need of Watchman device otherwise. Patient declined to proceed with. I talked to patient about this today. He confirmed that he declined to be on a blood thinner and or proceed with a Watchman device. I reviewed the [facility] record and I found out that patient had GI bleed in the past with a negative endoscopy. Ongoing conversation regarding anticoagulation risk/benefit and/or Watchman device will need to continue to take place in the outpatient setting by patient, PCP and cardiology Meanwhile continue patient on aspirin as he desires. Old stroke seen on CT imaging. The CAT scan completed after that is several days ago showed chronic moderate to large right-sided and moderate left-sided infarct. This could be embolic phenomena. Patient stated that his waterproof material folder instructed him not to be on a blood thinner. We will follow-up on this for sure. Meanwhile keep him on Lovenox subcu Hypertension Continue lisinopril Chronic, subacute medical conditions not listed above, abnormal labs and imaging. These would need to be addressed. Could be addressed later on or in the outpatient setting by PCP collaboration with other needed outpatient providers when time and condition are appropriate. Patient has multiple complex medical issues as listed above and others that are not listed. All appear to be stable. Patient is doing fairly well. Is ready physically and psychologically to be discharged home. I do not have any clear or strong clinical justification to extend inpatient hospitalization. Patient however will require close and frequent monitoring as well as additional work-up, investigation and therapeutic intervention that could take place from this point on post discharge. That is to prevent relapse, decompensation, rehospitalization and other medical implications.. I instructed patient to ask her primary care doctor to obtain [facility] record entirely to address abnormalities seen on labs and imaging that I have and have not addressed during this hospitalization, follow-up on pending blood work, imaging and pathology is if available and to follow-up on needed medical care in the outpatient setting. Time Spent with Patient Time attestation: Total time spent providing and/or coordinating discharge services: Time spent: greater than 30 minutes Exam Constitutional Vital Signs, click to edit/add: Last Vital Signs Temp 98.1 F 01/17/25 08:00 Pulse 66 01/17/25 09:00 Resp 20 01/17/25 09:00 BP 114/56 01/17/25 09:00 Pulse Ox 93 L 01/17/25 09:34 O2 Del Method Room Air 01/17/25 12:00 DS: Data Data Completed and Pending Labs on day of discharge: Labs from last 24 hours 01/17/25 01/16/25 08:17 21:12 POC Glucose 101 147 H Discharge Plan Discharge Disposition: Home, Self-Care Condition: Fair Discharge Medications: New ergocalciferol (vitamin D2) 1,250 mcg (50,000 unit) Capsule 1,250 mcg PO QWEEK Qty: 5 0RF amoxicillin-pot clavulanate 875-125 mg tablet 1 tab PO BID Qty: 14 0RF tramadol 50 mg tablet 25 mg PO Q6H PRN (Reason: pain) Qty: 30 0RF Continued atorvastatin 80 mg tablet 80 mg PO DAILY aspirin 81 mg Tablet,Delayed Release (Dr/Ec) 81 mg PO QD Qty: 30 11RF lisinopril 10 mg Tablet 5 mg PO DAILY Qty: 30 11RF nitroglycerin 0.4 mg tablet, sublingual 0.4 mg sublingual Q5M PRN (Reason: chest pain) Rx Instructions: do not exceed 3 doses per episode magnesium oxide 400 mg magnesium tablet 400 mg PO BID sotalol 80 mg Tablet 80 mg PO BID Qty: 0 0RF Rx Instructions: per patient takes HALF A tablet twice a day Activity: increase activity as tolerated Diet: advance to your usual diet Print Language: Wolof Patient Instructions: Rib Fracture (DC) Activity Restrictions/Additional Instructions: I may not have addressed or treated all of your medical illnesses or the abnormal blood work or imaging studies during this hospitalization. Please ask your primary care provider to obtain [place] and [facility] ER records entirely to follow up on all of the abnormal physical, laboratory, and imaging findings that I have not addressed. As I explained when I saw you this morning. The CAT scan that was done at [facility] emergency room showed that you have growth tumor in the center of the left lung. This will need to be investigated further to make sure it is not cancer. I will communicate with the your primary care doctor Dr. Avila. We would need to refer you to see lung specialist. You may need to have a scope down the tube of your lungs to get a piece out and check it under the microscope to see if there is any cancer cells. If cancer is found then you would need to see a cancer specialist Please return back to the emergency room or seek medical attention if your symptoms worsen or return. Discharging you from [place] does not mean that your medical care ends here and now. You may still need additional monitoring, work up, investigation, and treatment plan to be handled from this point on by out patient providers including your primary care provider and specialists. For any medication question, please contact your retail pharmacist or your primary care provider. Thank you. Forms: Portal Instructions Referrals: Raphael Avila MD [Primary Care Provider, Family Practice] Follow Up Appointments: TAMMY Lora. 01/24 @ 10:30am [phone]
--- NOTE | 2025-01-17 13:54 | PC.NURSE ---
pt dressed per self, called for ride. belongings packed per pt. dc instructions given to pt, verbalized understanding. awaiting ride.
--- NOTE | 2025-01-17 14:20 | CM.NOTE ---
MIR spoke with Dr. Avila regarding pt's need to see maritime guard as outpatient for CT finding. Attempted to contact [facility] for appointments without success. Dr. Avila will take care of contacting pulmonology and setting up outpt appointment for patient. Pt updated.
--- NOTE | 2025-01-17 15:15 | CM.NOTE ---
Updated Dr. Wiggins that Dr. Avila will schedule pt f/u appointment with pulmonary.
--- OUTSIDE RECORDS SUMMARY | 2025-01-18 | XMS_ITS | Encounter Summary ---
Author Organization [facility] Address [address] [place] [address] Care Team Providers Care Garment Liner Name Role Phone Unavailable Primary Care Provider Unavailabl e Encounter Details DateTypeDepartmentCare Team (Latest Contact Info)Ggckctrkuuf42/29/2025 - 01/18/2025 11:59 PM EDTHospital Encounter [facility] Radiology External Films [address] [place] [address] Arrived Discharge Disposition: Home or Self Care () Social History Tobacco UseTypesPacks/DayYears UsedDateSmoking Tobacco: Never AssessedUT Safety & EnvironmentAnswerDate RecordedFear of Current or Ex-PartnerNot on file 05/14/2023Emotionally AbusedNot on file4Physically AbusedNot on file 05/14/2023Sexually AbusedNot on file4Physically or Sexually AbusedNot on file05/14/2023Sex and Gender InformationValueDate RecordedSex Assigned at BirthNot on fileLegal WouPrch0609/18/2021 11:03 PM EDTGender IdentityNot on file Sexual OrientationNot on filedocumented as of this encounter Plan of Treatment Not on file documented as of this encounter Procedures Procedure NamePriorityDate/TimeAssociated DiagnosisCommentsCT TRANSFER OF OUTSIDE KCMZXBkylfwp92/29/2025 12:00 AM EDT documented in this encounter Results * CT transfer of outside films (01/18/2025 12:00 AM EDT)Specimen (Source) Anatomical Location / LateralityCollection Method / VolumeCollection Time Received Time Narrative IMAGING - 01/18/2025 10:58 AM EDT This order has been auto-finalized and does not contain a result. Authorizing ProviderResult TypeResult StatusMohamed Omballi MDIMG CT PROCEDURES Final ResultPerforming OrganizationAddressCity/State/ZIP CodePhone Number IMAGING documented in this encounter Visit Diagnoses Not on filedocumented in this encounter
--- NOTE | 2025-01-18 13:12 | CM.DCFOLLOWU ---
Person spoke with:patient's significant other How are you feeling? he is doing alright, taking a nap, still in some pain How is your pain? he was in pain earlier, did not garbage pick up worker medications, but her son is picking them up today. Pt's sig. other had Tramadol and she gave him one this morning Did you understand your discharge instructions?yes Do you have any questions about your discharge instructions? no Were you given any prescriptions at discharge?yes Were you able to get your prescriptions filled? her son is picking them up today Do you understand how to take your medications as ordered?yes Do you have any questions about your follow up appointment and do you plan to keep your follow up appointment? no questions, reviewed follow up with pt's significant other Is there anything else that you would like to discuss?no Questions/Comments/Concerns/Other:none
--- OUTSIDE RECORDS SUMMARY | 2025-01-19 09:46 | XMS_ITS | Clinical Summary ---
Author Organization [facility] Address [address] [place] [address] Care Team Providers Care Senior Producer Name Role Phone Unallocated, Noms Provider Primary [...] Problems No known active problems Encounters DateTypeDepartmentCare FgtrNkmqwiokjbi56/14/2025 2:40 PM EDTProcedure Visit [facility] [address] [place] [phone] Marciano Chapman DPM Xerosis cutis (Primary Dx); Diabetes 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, unspecified whether rn long term care insulin use (HCC); Pain due to onychomycosis of toenails of both feet; Right foot drop11/03/2024amboo flowsheet [facility] [address] [place] [phone] Marciano Chapman DPM 11/03/2024Travelfrom Last 3 Months Family History RelationNameStatusCommentsFatherDeceasedMotherDeceased Social History Tobacco UseTypesPacks/DayYears UsedDateSmoking Tobacco: UnknownPassive Smoke Exposure: Never Tobacco Cessation:Counseling Given: Yes Alcohol UseStandard Drinks/WeekCommentsYes1 (1 standard drink = 0.6 oz pure alcohol)coffee dailySex and Gender InformationValueDate RecordedSex Assigned at BirthNot on fileLegal DelWebl9406/04/2022 6:56 PM EDTGender IdentityNot on file Sexual OrientationNot on file Last Filed Vital Signs Vital SignReadingTime TakenCommentsBlood Pluyyoxh943/7710 1:51 PM EDT Yquqt643401/07/2024 1:51 PM EDTTemperature--Respiratory Wcgd655211/03/2024 1:40 PM EDTOxygen Saturation--Inhaled Oxygen Concentration--Rzagno36.2 kg (212 lb) 11/03/2024 1:40 PM KZBZaceqa113.4 cm (6' 1 )11/03/2024 1:40 PM EDTBody Mass Index27.9708 1:40 PM EDT Plan of Treatment DateTypeDepartmentCare Team (Latest Contact Info)Vclpgixfljt94/06/2025 1:50 PM ESTProcedure Visit [facility] [address] [facility] [address] [place] [address] Marciano Chapman DPM [address] [facility] [address] [place] [address] Health MaintenanceDue DateLast DoneCommentsMedicare Annual Wellness (AWV) 1946DTaP/Tdap/Td Vaccines (1 - Tdap)4Diabetes: Retinopathy Gvmlpomih31/03/1957Diabetes: Urine Protein Bwnefbfox66/03/1966Pneumococcal Vaccine: 65+ Years (1 of 2 - PCV)1965Diabetes: Hemoglobin A1C02/27/2022 11/28/2021OVID-19 Vaccine ( - season), 06/12/2020, 05/21/2020Influenza Vaccine (#1)ColonoscopyDiscontinued 04/18/2019, 04/18/2019, 02/21/2016Colorectal Cancer ScreeningDiscontinuedCT ColonographyDiscontinuedFIT-DNADiscontinuedFITDiscontinuedFOBTDiscontinuedHIB VaccinesAged OutNo longer eligible based on patient's [...] patient's age to complete this topicMeningococcal B VaccineAged OutNo longer eligible based on patient's age to complete this topicMeningococcal VaccineAged OutNo longer eligible based on patient's age to complete this topicRotavirus VaccinesAged OutNo longer eligible based on patient's age to complete this topic SigmoidoscopyDiscontinued Insurance Care Teams Team MemberRelationshipSpecialtyStart DateEnd Date Unallocated, Noms MD Lynette [address] [place] [address] PCP - GeneralFamily Medicine06/04/23
--- OUTSIDE RECORDS SUMMARY | 2025-01-19 09:46 | XMS_ITS | Encounter Summary ---
Author Organization [facility] Address [address] [place] [address] Care Team Providers Care Artillery Specialist Name Role Phone Unavailable Primary Care Provider Unavailabl e Reason for Referral * (Routine) - Pending ReviewSpecialtyDiagnoses / ProceduresReferred By Contact Referred To ContactGastroenterology Diagnoses Lung mass Procedures Bronchoscopy with TBBx, EBUS with 3 or more stations Josefa Shah MD [address] [place] [address] Phone: tel: fax: [facility] [address] [place] [address] Phone: tel: fax: Referral IDStatusReasonStart DateExpiration DateVisits RequestedVisits [id number] Encounter Details DateTypeDepartmentCare Team (Latest Contact Info)Uzyxiawqlhn25/29/2025Orders Only Pulmonary [address] [place] [address] Josefa Shah MD [address] [place] [address] Lung mass (Primary Dx) Social History Tobacco UseTypesPacks/DayYears UsedDateSmoking Tobacco: Never AssessedUT Safety & EnvironmentAnswerDate RecordedFear of Current or Ex-PartnerNot on file 05/14/2023Emotionally AbusedNot on file05/14/2023hysically AbusedNot on file 05/14/2023Sexually AbusedNot on file05/14/2023hysically or Sexually AbusedNot on file05/14/2023Sex and Gender InformationValueDate RecordedSex Assigned at BirthNot on fileLegal GrmUwoz6909/18/2021 11:03 PM EDTGender IdentityNot on file Sexual OrientationNot on filedocumented as of this encounter Plan of Treatment NameTypePriorityAssociated DiagnosesOrder ScheduleBronchoscopy with TBBx, EBUS with 3 or more stationsEndoscopyRoutine Lung mass Expected: 01/18/2025, Expires: 01/18/2026[place] in ORImagingRoutine Lung mass Expected: 01/18/2025 (Approximate), Expires: 01/18/2026documented as of this encounter Visit Diagnoses Diagnosis Lung mass- Primary Swelling, mass, or lump in chest documented in this encounter
--- OUTSIDE RECORDS SUMMARY | 2025-01-19 09:46 | XMS_ITS | Clinical Summary ---
Author Organization [facility] Address [address] [facility], [address] [place] [address] Care Team Providers Care Bioinformatics Specialist Name Role Phone Unavailable Primary Care [...] at Discharge) Active Problems ProblemNoted DateDiagnosed DateHemorrhagic wegtic3412/03/2021trial fibrillation with RVR12/02/2021rimary dfqxqcejkvdh64/12/2022Type 2 diabetes mellitus without complication, without long-term current use of ontbdyv23/12/2022COPD (chronic obstructive pulmonary disease)12/02/2021AF (paroxysmal atrial fibrillation) 11/29/20213154Cmgvwh02/09/2022erebrovascular accident (CVA)2Otitis media with effusion, left11/28/2021 Family [...] InformationValueDate RecordedSex Assigned at BirthNot on fileLegal SatErte6709/22/2021 7:59 PM EDTGender IdentityNot on fileSexual OrientationNot on file Last Filed Vital Signs Vital SignReadingTime TakenCommentsBlood Khaawfuy121/8312/04/2021 10:00 AM EDT Snqmy339712/04/2021 10:00 AM LCCCxanppkwgpa08.6 ??C (97.9 ??F)12/04/2021 8:00 AM EDTRespiratory Pppb307312/04/2021 10:00 AM EDTOxygen Oqhnjkoatd04%12/04/2021 10:00 AM EDTInhaled Oxygen Concentration--Uhgfzl35 kg (207 lb 3.7 oz)11/28/2021 6:29 AM LKILhictw048.4 cm (6' 1 )11/28/2021 6:29 AM EDTBody Mass Index27.34011/28/2021 6:29 AM EDT Plan of Treatment Health MaintenanceDue DateLast DoneCommentsDepression Hcnspf3610/23/1958Diabetic Alb to Cr ratio (uACR) test1964Hepatitis C vwyfoi4210/23/1964DTaP/Tdap/Td vaccine (1 - Tdap)1965Pneumococcal 50+ years Vaccine (1 of 1 - PCV) 1996Shingles vaccine (1 of 2)1996Respiratory Syncytial Virus (RSV) or age 60 yrs+ (1 - 1-dose 75+ series)10/23/20216933Czqtat16/08/2023 11/28/2021GFR test (Diabetes, CKD 3-4, OR last GFR 15-59)/, 12/03/2021, 12/01/2021, Additional history existsFlu vaccine (#1)10/21/2024 COVID-19 Vaccine (2024- season), 06/12/2020, 1A1C test (Diabetic or Prediabetic)Gpbpkncdkjbs39/08/2022Hepatitis A vaccineAged OutNo longer eligible based on [...] topic Procedures Procedure NamePriorityDate/TimeAssociated DiagnosisCommentsBASIC METABOLIC PANEL Bfactnx0912/04/2021 6:18 AM EDT LIPID GDOUIUjvjqaa53/08/2022 7:37 AM EDT HEMOGLOBIN D4XEypkjrd01/08/2022 3:59 AM EDT from Last 3 Months or Most Recently Relevant to Health Maintenance Results * (ABNORMAL) Basic Metabolic Panel (12/04/2021 6:18 AM EDT)ComponentValueRef RangeTest MethodAnalysis TimePerformed AtPathologist HyilsgwxbRfojwyf320(H)70 - 99 mg/dL12/04/2021 6:18 AM EDTMERCY NRZFAMWMKKFBLIA750 - 23 mg/dL12/04/2021 6:18 AM EDTMERCY LABORATORIESCreatinine0.69(L)0.70 - 1.20 mg/dL12/04/2021 6:18 AM EDTMERCY LABORATORIESCalcium8.3(L)8.6 - 10.4 mg/dL12/04/2021 6:18 AM EDT [facility] GUHWDDWVCOYLTopshg545(L)135 - 144 mmol/L12/04/2021 6:18 AM EDTMERCY LABORATORIESPotassium4.03.7 - 5.3 mmol/L12/04/2021 6:18 AM EDTMERCY QBSFVHCXBYGSOevfdljk52650 - 107 mmol/L12/04/2021 6:18 AM EDTMERCY LABORATORIES YD39609 - 31 mmol/L12/04/2021 6:18 AM EDTMERCY LABORATORIESAnion Xjx975 - 17 mmol/L12/04/2021 6:18 AM EDTMERCY LABORATORIESGFR Non->60>60 mL/min12/04/2021 6:18 AM EDTMERCY LABORATORIESGFR >60>60 mL/min12/04/2021 6:18 AM EDTMERCY LABORATORIESGFR Yrgnedy2112/04/2021 6:18 AM EDTMERCY LABORATORIESComment: Average GFR for 70 or more years old: 75 mL/min/1.73sq m Chronic Kidney Disease: <60 mL/min/1.73sq m Kidney failure: <15 mL/min/1.73sq m ? eGFR calculated using average adult body mass. Additional eGFR calculator available at: ? http://www.[employer]/multiple_crcl_2012.htm ? Specimen (Source)Anatomical Location / LateralityCollection Method / Volume Collection TimeReceived TimeBLOOD SPECIMEN / Alvfnll8512/04/2021 6:18 AM EDT 12/04/2021 6:30 AM EDT Narrative Authorizing ProviderResult TypeResult StatusAdina Do CONSTRUCTION AREA MANAGER - CNPCHEMISTRY ORDERABLESFinal ResultPerforming OrganizationAddressCity/State/ZIP CodePhone Number [facility] [address] [place] [address], [facility] [phone] * (ABNORMAL) Lipid Panel (11/28/2021 7:37 AM EDT)ComponentValueRef RangeTest MethodAnalysis TimePerformed AtPathologist AlkzmhmpsAhxafwudilc807<200 mg/dL 11/28/2021 7:37 AM EDTMERCY LABORATORIESComment: Cholesterol Guidelines: <200 Desirable 200-240 ??Borderline >240 Undesirable HDL34(L)>40 mg/dL11/28/2021 7:37 AM EDTMERCY LABORATORIESComment: HDL Guidelines: <40 Undesirable 40-59 ?Borderline >59 Desirable LDL Ejwqiyxkwct293 - 130 mg/dL11/28/2021 7:37 AM EDTMERCY LABORATORIESComment: [...] MDCHEMISTRY ORDERABLES Final ResultPerforming OrganizationAddressCity/State/ZIP CodePhone Number [place] [phone] [address] [phone] * (ABNORMAL) Hemoglobin A1c (11/28/2021 3:59 AM EDT)ComponentValueRef RangeTest MethodAnalysis TimePerformed AtPathologist SignatureHemoglobin A1C8.1(H)4.0 - 6.0 %11/28/2021 3:59 AM EDTMERCY LABORATORIESEstimated Avg Acmarso619hh/dL 11/28/2021 3:59 AM EDTMERCY LABORATORIESComment: The ADA and AACC recommend providing the estimated average glucose result to permit better patient understanding of their HBA1c result. Specimen (Source)Anatomical Location / LateralityCollection Method / Volume Collection TimeReceived TimeBLOOD SPECIMEN / Vmovout5211/28/2021 3:59 AM EDT 11/28/2021 4:15 AM EDT Narrative Authorizing ProviderResult TypeResult StatusPaul Eber MDCHEMISTRY ORDERABLES Final ResultPerforming OrganizationAddressCity/State/ZIP CodePhone Number [facility] [address] [place] [address], [facility] [phone] from Last 3 Months or Most Recently Relevant to Health Maintenance Insurance * Guarantor: Davon Mcnair TypeRelation to PatientDate of BirthPhone Billing AddressPersonal/IzkterYvwf31/03/1946 ([place]) [address] [place] [address] Advance Directives * Full Code (Latest Code Status on File) Date ActivatedDate InactivatedComments11/28/2021 3:26 AM12/04/2021 2:54 PM
--- OUTSIDE RECORDS SUMMARY | 2025-01-19 09:46 | XMS_ITS | Encounter Summary ---
Author Organization [facility] Address [address] [place] [address] Care Team Providers Care Inbound Call Center Agent Name Role Phone Unavailable Primary Care Provider Unavailabl e Encounter Details DateTypeDepartmentCare Team (Latest Contact Info)Mkvykpddwcu52/29/2025Orders Only [facility] [address] [place] [address] Aneta Mccray MA Social History Tobacco UseTypesPacks/DayYears UsedDateSmoking Tobacco: Never AssessedUT Safety & EnvironmentAnswerDate RecordedFear of Current or Ex-PartnerNot on file 05/14/2023Emotionally AbusedNot on file05/14/2023hysically AbusedNot on file 05/14/2023Sexually AbusedNot on file4Physically or Sexually AbusedNot on file05/14/2023Sex and Gender InformationValueDate RecordedSex Assigned at BirthNot on fileLegal EqjSfwj3009/18/2021 11:03 PM EDTGender IdentityNot on file Sexual OrientationNot on filedocumented as of this encounter Plan of Treatment Not on file documented as of this encounter Results * CT transfer of [...]
--- OUTSIDE RECORDS SUMMARY | 2025-01-19 09:46 | XMS_ITS | Clinical Summary ---
Author Organization [facility] Address [id number] [place] [address] Care Team Providers Care Detail Maker And Fitter Name Role Phone Unavailable Primary Care Provider Unavailabl e Social History Tobacco UseTypesPacks/DayYears UsedDateSmoking Tobacco: Never AssessedSex and Gender InformationValueDate RecordedSex Assigned at BirthNot on fileLegal Sex Male10/04/2023 2:13 PM EDTGender IdentityNot on fileSexual OrientationNot on file Plan of Treatment Health MaintenanceDue DateLast DoneCommentsDepression Yugndedze96/03/1959Tobacco Hmafevvzb49/03/1959DTaP,Tdap and Td Vaccines (1 - Tdap)1965Zoster (Shingles) Vaccine (1 of 2)1996Fall Risk Iiyaeizsn27/03/2012COVID-19 Vaccine ( season)/, 06/12/2020, 05/21/2020 Influenza Lkynmyl66 [employer] Not on file Insurance
--- OUTSIDE RECORDS SUMMARY | 2025-01-19 09:46 | XMS_ITS | Clinical Summary ---
Author Organization [facility] Address [address] [place] [address] Care Team Providers Care Cvicu Rn Name Role Phone Unavailable Primary Care Provider Unavailabl e Encounters DateTypeDepartmentCare HsuxPvadtdfaylf55/29/2025Orders Only Pulmonary [address] [place] [address] Josefa Shah MD Lung mass (Primary Dx)01/18/2025 - 01/18/2025 11:59 PM EDTHospital Encounter [facility] [address] [place] [address] Arrived Discharge Disposition: Home or Self Care (01)01/18/2025Orders Only Christelle Gonzalez [facility] [address] [place] [address] Aneta Mccray MA from Last 3 Months Social History Tobacco UseTypesPacks/DayYears UsedDateSmoking Tobacco: Never AssessedUT Safety & EnvironmentAnswerDate RecordedFear of Current or Ex-PartnerNot on file 05/14/2023Emotionally AbusedNot on file05/14/2023hysically AbusedNot on file 05/14/2023Sexually AbusedNot on file4Physically or Sexually AbusedNot on file05/14/2023Sex and Gender InformationValueDate RecordedSex Assigned at BirthNot on fileLegal GfpYvgs3409/18/2021 11:03 PM EDTGender IdentityNot on file Sexual OrientationNot on file Plan of Treatment Health MaintenanceDue DateLast DoneCommentsDiabetes: Hemoglobin A1C1946 Medicare Annual Wellness (AWV)1946Diabetes: Retinopathy Screening 1956Depression Vkzkeomjy17/03/1959Diabetes: Urine Protein Screening 1965Pneumococcal Vaccine: 50+ Years (1 of 2 - PCV)1965Adult Tetanus 1968Zoster Vaccines (1 of 2)1996Fall Risk Ahvrdqozf36/03/2012COVID- 19 Vaccine ( season), 06/12/2020, 05/21/2020 Influenza Vaccine (#1)0109AqsaybjeuozBubhhmyjkwfh50/27/2020 Colorectal Cancer ScreeningDiscontinuedCT ColonographyDiscontinuedFIT-DNA DiscontinuedFITDiscontinuedFOBTDiscontinuedHIB VaccinesAged OutNo longer eligible based on patient's age to complete this topicHPV VaccinesAged OutNo longer eligible based on patient's age to complete this topicIPV VaccinesAged OutNo longer eligible based on patient's age to complete this topicMeningococcal B VaccineAged OutNo longer eligible based on patient's age to complete this topicMeningococcal VaccineAged OutNo longer eligible based on patient's age to complete this topicRotavirus VaccinesAged OutNo longer eligible based on patient's age to complete this topicSigmoidoscopyDiscontinued Procedures Procedure NamePriorityDate/TimeAssociated DiagnosisCommentsCT TRANSFER OF OUTSIDE WCARUKvmfvrw24/29/2025 12:00 AM EDT from Last 3 Months Results * CT transfer of outside films (01/18/2025 12:00 AM EDT)Specimen (Source) Anatomical Location / LateralityCollection Method / VolumeCollection Time Received Time Narrative IMAGING - 01/18/2025 10:58 AM EDT This order has been auto-finalized and does not contain a result. Authorizing ProviderResult TypeResult StatusMohamed Alyssa MDIMG CT PROCEDURES Final ResultPerforming OrganizationAddressCity/State/ZIP CodePhone Number IMAGING from Last 3 Months Insurance
--- OUTSIDE RECORDS SUMMARY | 2025-01-19 09:47 | XMS_ITS | CCD ---
Author Organization [facility] Care Team Providers Care Frame Hand Name Role Phone VERONICA LIZ Attending Unavailable [...] HOUSE, DR WANG Consulting Unavailable HOUSE, DR AWNG Primary Care Unavailable JUSTEN, DR MCDANIEL Admitting [...] Unavailable PAY ., DR ORLANDO Attending Unavailable WADSWORTH, DR REINA Palacios Consulting Unavailable PAY ., [...] Care Provi miya Marsha LEW, Rosyf Unavailable [phone] Zachariah Ochoa MD Primary Care Provider [phone] Zachariah Ochoa MD Primary Care Provider MARCIANO [...] Unavailable ZACHARIAH OCHOA Primary Care Unavailable Gilles eHrrera DO Attending Provider Gilles Herrera Attending Unavailable Gilles Herrera Admitting Unavailable Faustino Wiley Attending Unavailable Allergies Allergy ClassificationReported Allergen(s)Allergy TypeDate of OnsetReaction(s) Facility (2 sources)Coconut extractDrug AllergyPhelps Health [facility] Other (1 source)coconut allergenic extractDrug Rqybwir03-81-3512TuzarcukqhlZSXMary [facility] (1 source)Coconut extractDrug Fkdpvdu28-94-5497[facility] (4 sources)Coconut Oil OIL; Translations: [Coconut Oil OIL]Allergy to drug (finding)[facility] 250 DO Work Phone: (10 sources)Coconut Oil; Translations: [COCONUT OIL]Drug Qxgwmnz78-23-0541HdubkMer[facility] (1 source)Coconut extractDrug Amammnu92-26-8333YkhhzgeejAvita Health [facility] Medications Current Medications MedicationDrug Class(es)DatesSig (Normalized)Sig (Original)amiodarone hydrochloride 200 mg oral tablet (3 sources)AntiarrhythmicStart: 12-08-2021 End: 75-90-4744sifa 1 tablet by mouth once dailyamiodarone (CORDARONE) 200 MG tablet Take 1 tablet by mouth daily 90 tablet 0 12/08/2021 03/08/2022ctive Start: 12-03-2021 End: 29-72-0466mgkr 1 tablet by mouth twice dailyamiodarone (CORDARONE) 200 MG tablet Take 1 tablet by mouth 2 times daily for 9 doses 9 tablet 0 12/03/2021 12/08/2021 ActiveStart: 12-03-2021 End: 08-78-3892heekvdydoa (CORDARONE) tablet 200 mgAspir-81 (2 sources)Aspir-81 Activeaspirin 81 mg delayed release oral tablet (20 sources)Platelet Aggregation Inhibitor, Nonsteroidal Anti-inflammatory Drug Start: 05-30-2020 End: 56-48-9083yxcm 1 tablet by mouth once dailyStart: 05-29-2020 End: 63-68-4416hxge 1 tablet by mouth once dailyAspirin 81 mg Tablet Discontinued 81 MG PO Daily May 29, 2020 1:00am May 30, 2020 1:41pmStart: 03-31-2019 End: 93-99-6127iogp 1 tablet by mouth once dailyAspirin (Aspir-81) 81 mg Tablet,Delayed Release (Dr/Ec) Discontinued 81 MG PO Daily March 31, 2019 1:00am April 20, 2019 12:16pmatorvastatin 80 mg oral tablet (20 sources)HMG-CoA Reductase InhibitorStart: 54-23-7228ydmx 1 tablet by mouth once daily in the eveningbelladonna alkaloids 16.2 mg / opium 60 mg rectal suppository (1 source)Start: 46-19-5901gzhka-belladonna (B&O SUPPRETTES) 16.2-60 MG suppository 60 mgcefdinir 300 mg oral capsule (2 sources)Cephalosporin AntibacterialStart: 12-02-2021 End: 88-08-1253rkmi 1 capsule by mouth every twelve hourscefdinir (OMNICEF) 300 MG capsule Take 1 capsule by mouth every 12 hours for 8 doses 8 capsule 0 12/07/2021 Active0.3 ml enoxaparin sodium 100 mg/ml prefilled syringe (1 source)Low Molecular Weight HeparinStart: 57-94-7531mvkaevwirv Sodium (LOVENOX) injection 30 mgglucagon (rdna) 1 mg injection (1 source)Antihypoglycemic AgentStart: 05-73-2379uczzpvjb (rDNA) injection 1 mg 1000 ml glucose 100 mg/ml injection (3 sources)Start: 37-55-3919lltbgurz 10 % infusionStart: 41-54-1513abasihkz bolus 10% 125 mLStart: 18-41-8584fwqweuc chewable tablet 16 ghyoscyamine sulfate 0.125 mg sublingual tablet (1 source)Start: 85-10-2503rgystlgrtpn (LEVSIN/SL) sublingual tablet 125 mcg ibuprofen 400 mg oral tablet (8 sources)Nonsteroidal Anti-inflammatory Drugtake 1 tablet by mouth twice daily ibuprofen 400 MG tablet Take 1 tablet twice a day by oral route. Activeinsulin lispro 100 unt/ml injectable solution (3 sources)Insulin AnalogStart: 11-28-2021 End: 69-16-6317ngbtybm lispro (HUMALOG) injection vial 0-16 Unitslabetalol hydrochloride 5 mg/ml injectable solution (1 source)beta-Adrenergic BlockerStart: 93-10-0652nvghhldmd (NORMODYNE;TRANDATE) injection 10 mglisinopril 10 mg oral tablet (20 sources)Angiotensin Converting Enzyme InhibitorStart: 80-56-4047evao 0.5 tablet by mouth once dailylisinopril 10 mg tablet Take 0.5 tablets (5 mg) by mouth once daily. 11/04/2023 ActiveStart: 09-33-8511bmqzqwmpay 10 mg tablet 1 tablet (10 mg) once daily. 11/04/2023 ActiveStart: 91-20-5215kbbb 1 tablet by mouth once dailylisinopril (PRINIVIL;ZESTRIL) 10 MG tablet Take 1 tablet by mouth daily 30 tablet 3 12/03/2021 ActiveStart: 11-27-2021 End: 52-08-8470ntkh 1 tablet by mouth once dailyLisinopril 5 MG Oral Tablet TAKE 1 TABLET DAILY. Quantity: 90 Refills: 3 Ordered: 27-Nov-2021 Veronica Liz MD Start : 27-Nov-2021 Active new doseStart: 04-01-2019 End: 83-25-4769hyio 1 tablet by mouth once dailyloperamide hydrochloride 2 mg oral capsule (1 source)Opioid AgonistStart: 84-82-6790xlfnapvwgb (IMODIUM) capsule 2 mg magnesium oxide 400 mg oral tablet (1 source)Start: 11-11-2024 End: 29-23-8648ayet 1 tablet by mouth twice dailymagnesium oxide (Mag-Ox) 400 mg (241.3 mg elemental) tablet Indications: Persistent atrial fibrillation (Multi) Take 1 tablet by mouth 2 times a day. 11/11/2024 11/11/2025 Activemetoprolol tartrate 25 mg oral tablet (7 sources)beta-Adrenergic BlockerStart: 39-03-7911timc 1 tablet by mouth twice dailymetoprolol tartrate (LOPRESSOR) 25 MG tablet Take 1 tablet by mouth 2 times daily 60 tablet 3 12/03/2021 ActiveStart: 96-98-5814ucvdcwcyhs (LOPRESSOR) injection 5 mgStart: 03-31-2019 End: 53-25-1771Iuhkmdupxe Tartrate 50 mg tablet Discontinued 75 MG PO Twice daily March 31, 2019 4:13pm 2019 12:16pmStart: 03-31-2019 End: 46-07-5668xync 75 mg by mouth twice dailyMetoprolol Tartrate Discontinued 75 MG PO Twice daily March 31, 2019 4:13pm April 20, 2019 12:16pmStart: 05-13-2018 End: 60-65-9895fomg 1 tablet by mouth twice dailyMetoprolol Tartrate 50 mg Tablet Discontinued 50 MG PO Twice daily 60 May 13, 2018 1:00am March 31, 2019 4:13pmondansetron (ZOFRAN-ODT) disintegrating tablet 4 mg (1 source)Start: 78-71-8890uaajgrcmbce (ZOFRAN-ODT) disintegrating tablet 4 mg SITagliptin 100 mg oral tablet (9 sources)Dipeptidyl Peptidase 4 InhibitorStart: 42-72-9806kibl 1 tablet by mouth once daily5 ml sodium chloride 9 mg/ml injection (2 sources)Start: 08-79-3892ddosts chloride flush 0.9 % injection 10 mLStart: 11-28-2021 End: .9 % sodium chloride infusionsotalol hydrochloride 80 mg oral tablet (20 sources)AntiarrhythmicStart: 10-26-2024 End: 12-01-4355mqes 0.5 tablet by mouth three times dailysotalol (Betapace) 80 mg tablet Indications: Persistent atrial fibrillation (Multi) Take 0.5 tablets (40 mg) by mouth 3 times a day. 135 tablet 3 10/26/2024 10/26/2025 ActiveStart: 12-11-2023 End: 16-26-1154qtva 1 tablet by mouth every twelve hourssotalol (Betapace) 80 mg tablet Take 1 tablet (80 mg) by mouth every 12 hours. 12/11/2023 10/26/2024 Discontinued (Reorder)Start: 08-21-2023 End: 64-57-3016ehak 1 tablet by mouth twice dailysotalol (sotalol AF) 120 mg tablet Indications: Persistent atrial fibrillation (Multi) Take 1 tablet (120 mg) by mouth 2 times a day. 180 tablet 3 08/21/2023 01/28/2024 Discontinued (Dose adjustment)Start: 98-14-4066jfnb 1 tablet by mouth twice dailysotalol AF (Betapace AF) 120 MG tablet TAKE 1/2 TABLET TWICE A DAY BY MOUTH 03/11/2023 ActiveStart: 16-88-1410pgrj 1 tablet by mouth twice dailysotalol AF 120 mg tablet Indications: Persistent atrial fibrillation (Multi) TAKE 1/2 TABLET BY MOUTH TWICE A DAY 90 tablet 1 03/11/2023 ActiveStart: 82-73-5812qtjs 1 tablet by mouth twice dailySotalol HCl (AF) 120 MG Oral Tablet take 1/2 tablet by mouth twice daily Quantity: 90 Refills: 1 Ordered: 06-Jun-2022 Veronica Liz MD Start : 17-Feb-2022 ActiveStart: 04-20-2019 End: 07-20-3090tert 0.5 tablet by mouth twice dailysotalol AF [...] 0.4 mg oral capsule (2 sources)alpha-Adrenergic BlockerStart: 01-21-9860nyac 1 capsule by mouth once dailytamsulosin (FLOMAX) 0.4 MG capsule Take 1 capsule by mouth daily 30 capsule 3 12/03/2021 Active Completed/Discontinued Medications MedicationDrug Class(es)DatesSig (Normalized)Sig (Original)acetaminophen 500 mg oral tablet (3 sources)Start: 11-29-2021 End: 74-94-4577diecxwmbqwene (TYLENOL) tablet 1,000 mgStart: 11-28-2021 acetaminophen (TYLENOL) tablet 650 mgamoxicillin 875 mg / clavulanate 125 mg oral tablet (1 source)Penicillin-class AntibacterialStart: 11-28-2021 End: 05-59-1569ljycexmxytu-clavulanate (AUGMENTIN) 875-125 MG per tablet 1 tabletapixaban 5 mg oral tablet (4 sources)Factor Xa InhibitorStart: 05-13-2018 End: 83-02-6697jqev 1 tablet by mouth twice dailyApixaban (Eliquis) 5 mg Tablet Discontinued 5 MG PO Twice daily 60 April 01, 2019 1:00am May 30, 2020 1:41pm50 ml calcium gluconate 20 mg/ml injection (1 source)Start: 11-29-2021 End: 39-61-2062zerciui gluconate 1000 mg in sodium chloride 50 mLcefTRIAXone (ROCEPHIN) 1,000 mg in sterile water 10 mL IV syringe (1 source)Start: 11-28-2021 End: 37-67-8006abzJRDQQoom (ROCEPHIN) 1,000 mg in sterile water 10 mL IV syringe cephalexin 500 mg oral capsule (3 sources)Cephalosporin AntibacterialStart: 84-85-5329omfm 1 capsule by mouth every eight hoursCephalexin 500 MG Oral Capsule TAKE 1 CAPSULE BY MOUTH EVERY 8 HOURS Quantity: 30 Refills: 0 Ordered: 01-Dec-2020 DO Start : 01-Dec-2020 CompleteStart: 05-14-2018 End: 00-86-6382qkov 1 capsule by mouth twice dailyCephalexin 500 mg capsule Discontinued 500 MG PO Twice daily 09 01May 14, 2018 1:00am March 31, 2019 4:09pmclopidogrel 75 mg oral tablet (2 sources)P2Y12 Platelet InhibitorStart: 04-01-2019 End: 45-60-6940ndak 1 tablet by mouth once dailyClopidogrel (Plavix) 75 mg tablet Discontinued 75 MG PO Daily 30 April 01, 2019 1:00am April 20, 2019 12:16pm1 ml dexamethasone phosphate 4 mg/ml injection (1 source)CorticosteroidStart: 11-28-2021 End: 14-69-2443sgtffvxpcxvpe (DECADRON) injection 4 mgdexamethasone 1 mg/ml / tobramycin 3 mg/ml ophthalmic suspension (1 source)Aminoglycoside Antibacterial, CorticosteroidStart: 59-28-7736ybgh 2 drop(s) into the eye(s) four times dailyTobramycin-Dexamethasone 0.3-0.1 % Ophthalmic Suspension PLACE 2 DROPS INTO BOTH EYES 4 TIMES A DAYQuantity: 5 Refills: 0 Ordered: 22-Aug-2021 DO Start : 22-Aug-2021 Complete1 ml diphenhydrAMINE hydrochloride 50 mg/ml cartridge (1 source)Histamine-1 Receptor AntagonistStart: 11-30-2021 End: 01-40-4687haghumlflrAZJRV (BENADRYL) injection 25 mgfamotidine (PEPCID) 20 mg in sodium chloride (PF) 10 mL injection (1 source)Start: 11-28-2021 End: 68-50-1864ywjpitcrln (PEPCID) 20 mg in sodium chloride (PF) 10 mL injection gadoteridol (PROHANCE) injection 20 mL (1 source)Start: 11-28-2021 End: 12-90-4010pdnryclxpfr (PROHANCE) injection 20 mLiopamidol (ISOVUE-370) 76 % injection 90 mL (1 source)Start: 11-28-2021 End: 49-29-4915kcdfzmrzg (ISOVUE-370) 76 % injection 90 mL5 ml levETIRAcetam 100 mg/ml injection (1 source)Start: 11-28-2021 End: 81-84-6918gbsUQGPNieaig (KEPPRA) injection 500 mg100 ml magnesium sulfate 10 mg/ml injection (2 sources)Start: 11-29-2021 End: 68-18-7883ztnqkwyyr sulfate 1000 mg in dextrose 5% 100 mL IVPBStart: 11-28-2021 End: 23-47-1916zosilovfq sulfate 4000 mg in 100 mL IVPB premixmetFORMIN hydrochloride 500 mg oral tablet (2 sources)BiguanideStart: 05-13-2018 End: 85-11-3712qbtv 1 tablet by mouth twice daily at mealtimeMetformin 500 mg Tablet Discontinued 500 MG PO Twice daily with meals 60 May 13, 2018 1:00amMarch 31, 2019 4:09pmmethylPREDNISolone 4 MG Oral Tablet Therapy Pack (1 source)Start: 10-86-0768rmnkkdMLVQEDIhgxwn 4 MG Oral Tablet Therapy Pack TAKE [...] topical ointment (1 source)RNA Synthetase Inhibitor AntibacterialStart: 28-30-1905Pdwsiayus 2 % External Ointment APPLY TOPICALLY 3 TIMES DAILY Quantity: 22 Refills: 0 Ordered: 01-Dec-2020 DO Start : 01-Dec-2020 CompleteniCARdipine (CARDENE) 20 mg in 0.9 % sodium chloride 200 mL solution (1 source)Start: 11-28-2021 End: 53-70-0713jxMNNczfkrd (CARDENE) 20 mg in 0.9 % sodium chloride 200 mL solutionnitroglycerin 0.4 mg sublingual tablet (10 sources)Nitrate VasodilatorStart: 79-64-6296Symdzqmrettty 0.4 MG Sublingual Tablet Sublingual DISSOLVE 1 TABLET UNDER THE TONGUE NEEDED Quantity: 25 Refills: 0 Ordered: 26-Dec-2021 DO Start : 26-Dec-2021 ActiveStart: 04-01-2019 End: 95-58-7714Iulnpiijjtzmf 0.4 mg Tablet, Sublingual Discontinued 0.4 MG SUBLINGUAL Q5M as needed for Chest Pain25 April 01, 2019 1:00am July 31, 2020 1:34pmofloxacin 3 mg/ml ophthalmic solution (2 sources)Quinolone AntimicrobialStart: 11-30-2021 End: 03-65-5740dzxridouj (OCUFLOX) 0.3 % solution 5 dropStart: 11-28-2021 End: 72-76-5654rezrydoud (OCUFLOX) 0.3 % solution 10 dropomeprazole 20 mg delayed release oral capsule (2 sources)Proton Pump InhibitorStart: 05-30-2020 End: 26-04-2795jgwy 1 capsule by mouth once dailyOmeprazole 20 mg Capsule,Delayed Release(Dr/Ec) Discontinued 20 MG PO Daily May 30, 2020 1:00am July 31, 2020 1:34pmpolysaccharide iron complex 150 mg oral capsule (2 sources)Start: 04-20-2019 End: 69-78-3943Ffhjmhzdzrjfep Iron Complex 150 mg iron capsule Discontinued 150 MG PO Every 48 hours 15 April 20, 2019 1:00am June 12, 2020 2:24pm2 ml prochlorperazine 5 mg/ml injection (1 source)PhenothiazineStart: 11-30-2021 End: 57-10-4696aeukrhjbyzrawpdw (COMPAZINE) injection 10 mgsulfamethoxazole 800 mg / trimethoprim 160 mg oral tablet (1 source)Dihydrofolate Reductase Inhibitor Antibacterial, Sulfonamide AntimicrobialStart: 36-37-1256qiwg 1 tablet by mouth twice daily Sulfamethoxazole-Trimethoprim 800-160 MG Oral Tablet TAKE 1 TABLET BY MOUTH TWICE A DAY FOR 1 WEEK Quantity: 14 Refills: 0 Ordered: 22-Aug-2021 DO Start : 22-Aug-2021 CompletetraMADol hydrochloride 50 mg oral tablet (1 source)Opioid AgonistStart: 84-39-4192zxye 1 tablet by mouth every four hours as needed for paintraMADol HCl - 50 MG Oral Tablet TAKE ONE TABLET BY MOUTH EVERY 4 HOURS NEEDED FOR PAIN Quantity: 20 Refills: 0 Ordered: 01-Dec-2020 DO Start : 01-Dec-2020 Completevancomycin (VANCOCIN) 1750 mg in sodium chloride 0.9 % 500 mL IVPB (1 source)Start: 11-28-2021 End: 64-52-3349bfveiortrz (VANCOCIN) 1750 mg in sodium chloride 0.9 % 500 mL IVPB Problems Active Problems Problem ClassificationProblemDateDocumented DateEpisodic/ChronicAcquired foot deformities (4 sources)Right foot drop; Translations: [Foot drop, right foot]01-07-2024 EpisodicAcute cerebrovascular disease (19 sources)Cerebrovascular accident; Translations: [Cerebral infarction, unspecified]Onset: 64-65-4563EoxjyseKqjcj myocardial infarction (2 sources)Acute myocardial infarction of inferior wall; Translations: [ST elevation (STEMI) myocardial infarction involving other coronary artery of inferior wall]66-03-7612NkmumgbJhulayqal infection; unspecified site (2 sources)Bacteremia; Translations: [Bacteremia]18-58-8859JxycriizDvmomkq tract disease (4 sources)Cholangiectasis; Translations: [Other specified diseases of biliary tract]55-73-3747DcfopakFosircu tract disease (2 sources)Common bile duct calculus; Translations: [Calculus of bile duct without cholangitis or cholecystitis without obstruction]59-39-4435Tikjihsz Cardiac dysrhythmias (20 sources)Paroxysmal atrial fibrillation; Translations: [Cardiac arrhythmia, unspecified]Onset: 47-14-6642SdqutloZcinfru obstructive pulmonary disease and bronchiectasis (6 sources)Chronic obstructive pulmonary disease, unspecified; Translations: [Chronic obstructive lung disease]Onset: 26-79-5329ArullojIqkyeytw atherosclerosis and other heart disease (20 sources)Single coronary vessel disease; Translations: [Coronary atherosclerosis of unspecified type of vessel, pauma or graft]Onset: 09-25-2021 80-89-6248JtaderlLfglgvv on above:Problem List clean-up per request of Phys. EHR CmteCoronary atherosclerosis and other heart disease (2 sources)Past history of procedure; Translations: [Coronary angioplasty status]42-22-3573SvfxdokjSturyqulsi and other anemia (2 sources)Anemia due to blood loss; Translations: [Iron deficiency anemia secondary to blood loss (chronic)]87-07-7323UexfobmGzimbudaqd and other anemia (20 sources)Anemia; Translations: [Anemia, unspecified]Onset: 24-71-8952Vwbhzsbo Comment on above:Problem List clean-up per request of Phys. EHR CmteDeficiency and other anemia (2 sources)Microcytic anemia; Translations: [Iron deficiency anemia, unspecified]EpisodicDeficiency and other anemia (6 sources)Anemia, unspecified; Translations: [ANEMIA UNSPECIFIED]Onset: 85-42-4297XmkqwopvManyceqy mellitus with complications (3 sources)Polyneuropathy due to diabetes mellitus; Translations: [Diabetes 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]03-17-2024 ChronicDiabetes mellitus without complication (5 sources)Type 2 diabetes mellitus without complication; Translations: [Type 2 diabetes mellitus without complications]Onset: 87-40-0521RnouhsqPzgjkes on above:Problem List clean-up per request of Phys. EHR CmteDisorders of lipid metabolism (20 sources)Hyperlipidemia; Translations: [Other and unspecified hyperlipidemia] Onset: 394696-27-9559FmlsatkMeodyjb on above:Problem List clean-up per request of Phys. EHR CmteE Codes: Fall (2 sources)Fall on same level, unspecified, initial encounter; Translations: [Fall on same level from slipping, tripping and stumbling with subsequent striking against other object, initial encounter]Onset: 77-70-0543Coztdjmn Esophageal disorders (1 source)Gastro-esophageal reflux disease without esophagitis; Translations: [GERD WITHOUT ESOPHAGITIS]Onset: 54-44-2535LukvvwcOqguhpaac hypertension (20 sources)Essential hypertension; Translations: [Unspecified essential hypertension]Onset: 56-61-8814CacarwmPntpk and electrolyte disorders (2 sources)Hyponatremia; Translations: [Hypo-osmolality and hyponatremia]Onset: 14-92-8975AlzgfubcYiknpbxp; including migraine (4 sources)Headache; including migraine; Translations: [HEADACHE UNSPECIFIED] Onset: 84-95-6864Mxjpuxjaprzdk and screening for infectious disease (8 sources)Patient encounter status; Translations: [Other specified vaccination] EpisodicLate effects of cerebrovascular disease (5 sources)Dysphagia following cerebral infarction; Translations: [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 EHR Cmte Occlusion or stenosis of precerebral arteries (8 sources)Right carotid artery stenosis; Translations: [Occlusion and stenosis of right carotid artery]Onset: 458308-44-9251UeueokpVrvqfawuuzmsnu (1 source)Unspecified osteoarthritis, unspecified site; Translations: [UNSPECIFIED OSTEOARTHRITIS UNS SITE]Onset: 96-76-5231VrkiloiZatuy aftercare (8 sources)Drug therapy finding; Translations: [Long-term (current) use of other medications]EpisodicOther aftercare (1 source)USP (current) use of aspirin; Translations: [RESIDENTIAL CURRENT USE OF ASPIRIN]Onset: 34-67-4839DvuolryuWslsb aftercare (3 sources)Other fpc (current) drug therapy; Translations: [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]Onset: 46-57-1865ZhxkorqnHxgcn aftercare (16 sources)Taking high risk medication; Translations: [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) drug therapy]Onset: 791569-83-7503SqydkreoTzfhk circulatory disease (1 source)Personal history of transient ischemic attack (TIA), and cerebral infarction without residual deficits; Translations: [PERS HX TIA AND CI NO RESID DEFICIT]Onset: 51-70-0297RhonpdbxGjjtu hematologic conditions (1 source)Other specified abnormalities of plasma proteins; Translations: [OTH SPEC ABNORM PLASMA PROTEINS]Onset: 61-75-5199JtqujvoyZagjw injuries and conditions due to external causes (1 source)Unspecified injury of head, initial encounter; Translations: [UNSPECIFIED INJURY HEAD INITIAL ENC]Onset: 92-74-5829PzmjmshvRkjnc lower respiratory disease (1 source)Shortness of breathOnset: 14-05-3662NhaftpnvRjjjx nutritional; endocrine; and metabolic disorders (1 source)Morbid (severe) obesity due to excess calories; Translations: [MORBID SEVERE OBES D/T EXCESS DELVIN]Onset: 05-37-4874PslklbgUxyar nutritional; endocrine; and metabolic disorders (1 source)Body mass index (BMI) 30.0-30.9, adult; Translations: [BODY MASS INDEX BMI 30.0-30.9 ADULT]Onset: 01-51-7467ZhydbxiYlwba screening for suspected conditions (not mental disorders or infectious disease) (8 sources)Hormone level - finding; Translations: [Other specified abnormal findings of blood chemistry]Onset: 158574-74-5432MtcacpkcLsydjwq on above: Problem List clean-up per request of Phys. EHR CmteOther skin disorders (4 sources)Asteatosis cutis; Translations: [Xerosis cutis]31-32-6008Jikbiteu Otitis media and related conditions (2 sources)Otitis media; Translations: [Unspecified nonsuppurative otitis media, left ear]Onset: 55-84-6281SrjsfhxvOfdjevvmus and visceral atherosclerosis (3 sources)Peripheral vascular disease, unspecified; Translations: [Peripheral vascular disease]Onset: 407785-29-0622UdelskzPqtdyqn on above:Problem List clean-up per request of Phys. EHR CmteResidual codes; unclassified (1 source)Acquired absence of other specified parts of digestive tract; Translations: [ACQ ABSENCE OTH PART DIGESTV TRACT]Onset: 28-86-0864Twdgitmh Residual codes; unclassified (4 sources)Body mass index 20-24 - normal; Translations: [Body mass index (BMI) 24.0-24.9, adult]Onset: 279912-72-5718NqyqugnjAcsxnqlt codes; unclassified (2 sources)Body mass index (BMI) 24.0-24.9, adult; Translations: [Body mass index (BMI) 24.0-24.9, adult]Onset: 90-66-1050NpuxbvavXsdnaxywg and history of mental health and substance abuse codes (20 sources)Ex-smoker; Translations: [Personal history of tobacco use]Onset: 365357-94-6166GupolloyLzimcfb on above:QUIT MAR 2019;Substance-related disorders (3 sources)Nicotine dependence, unspecified, uncomplicated; Translations: [Tobacco user]Onset: 471993-71-9817JbpzrbuPagwowd (3 sources)Syncope and collapse; Translations: [Syncope]Onset: 04-23-2022 72-92-6618RnxftydoKsrxnyv on above:Problem List clean-up per request of Phys. EHR CmteTransient cerebral ischemia (10 sources)Transient cerebral ischemic attack, unspecified; Translations: [Transient cerebral ischemia]Onset: 52-26-2915TrssnbzWzpbpynjdclr (1 source)USP (current) use of oral hypoglycemic drugsOnset: 06-10-2018 Unclassified (1 source)CONTACT W/AND (SUSP) EXPOS COVID-19; Translations: [CONTACT W/AND (SUSP) EXPOS COVID-19]Onset: 89-85-9871Jktkjwlptfhh (2 sources)Other persistent atrial fibrillation; Translations: [Other persistent atrial fibrillation]Onset: 01-29-2023 Past or Other Problems Problem ClassificationProblemDateDocumented DateEpisodic/ChronicAcute bronchitis (1 source)Acute bronchiolitis, unspecified; Translations: [ACUTE BRONCHIOLITIS UNSPECIFIED]Onset: 65-61-6040BcxasxibVezyddge of upper limb (2 sources)Displaced fracture of proximal phalanx of left little finger, subsequent encounter for fracture with routine healing; Translations: [Displaced fracture of proximal phalanx of left little finger, initial encounter for closed fracture]Onset: 08-29-2021 Resolved: 02-04-3536LgeailptUknfzrpaaofu; infection of eye (except that caused by tuberculosis or sexually transmitteddisease) (1 source)Unspecified conjunctivitis; Translations: [UNSPECIFIED CONJUNCTIVITIS] Onset: 81-47-4065QxsrkftzLmrm wounds of head; neck; and trunk (4 sources)Laceration without foreign body of left eyelid and periocular area, initial encounter; Translations: [LAC NO FB LT EYELID PERIOCULAR INIT]Onset: 36-19-5731GcjhtspkTzxbi aftercare (1 source)USP (current) use of oral hypoglycemic drugs; Translations: [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 DX]Onset: 01-25-6158DgtzzjvsGjolt connective tissue disease (2 sources)Pain in left handOnset: 08-29-2021 Resolved: 55-43-7253AqfpsgrrJduva injuries and conditions due to external causes (1 source)Unspecified foreign body in respiratory tract, part unspecified causing other injury, initial encounter; Translations: [UNS FB RESP TRACT UNS OTH INJ INIT]Onset: 69-32-0322ExlxztanFhqtv injuries and conditions due to external causes (1 source)Other specified injuries of head, initial encounter; Translations: [OTH SPEC INJURIES HEAD INITIAL ENC]Onset: 82-93-4324HfkhgqgcVhqsp lower respiratory disease (1 source)Shortness of breath; Translations: [SHORTNESS OF BREATH]Onset: 46-49-7422EpgpggkwDuqsk nutritional; endocrine; and metabolic disorders (19 sources)Overweight in adulthood with body mass index of 25 or more but less than 30; Translations: [Overweight]Onset: 212938-24-3051AondffkwFxhxc nutritional; endocrine; and metabolic disorders (2 sources)Body mass index (BMI) 26.0-26.9, adult; Translations: [Body mass index (BMI) 26.0-26.9, adult]Onset: 09-45-7898IiqbtbzpKhkfo nutritional; endocrine; and metabolic disorders (2 sources)Body mass index (BMI) 27.0-27.9, adult; Translations: [Body mass index (BMI) 27.0-27.9, adult]Onset: 26-04-0317TmgehfczOatmw upper respiratory disease (3 sources)Nasal congestion; Translations: [NASAL CONGESTION]Onset: 08-22-2021 EpisodicOther upper respiratory infections (1 source)Acute pharyngitis, unspecified; Translations: [ACUTE PHARYNGITIS UNSPECIFIED]Onset: 31-09-8337IudjbflgLgmgrqcmlxhq (7 sources)Onset: 01-29-2023 Resolved: Results Test NameValueInterpretationReference RangeFacilityABO/Rhon 86-22-4413SBW/Rh PositiveInvalid Interpretation CodeAvita Health System Ontario HospitalComment on above: Performed By: #### [id number] #### [facility] [address], [place] [address]YWU/Rh History Checkon 49-61-3797XRT/Rh History CheckPatient discharged priorHolzer HospitalComment on above:Performed By: #### [id number] #### [facility] [address], [place] [address]NRFKkw 44-65-5711VMWQ Gel InterpNegativeNoKindred Hospital DaytonComment on above:Performed By: #### [id number] #### [facility] [address], [place] [address]CXTqz 96-43-0784Zzzmw gap [Moles/Vol]10 mmol/LNormal6-16[facility] Ontario HospitalComment on above:Performed By: #### [id number] #### [facility] [address], [place] [address]IQN/Creat Ratio9 No PordhHnw23-71CdeghnAvita Health System Ontario Hospital Comment on above:Performed By: #### [id number] #### [facility] [address], [place] [address]Xadiauq [Mass/Vol]8.5 mg/dLLow8.9-11.1FProtestant Deaconess HospitalComment on above:Performed By: #### [id number] #### [facility] [address], [place] [address]Yefiflqz [Moles/Vol]100 mmol/PKxx339-158VtfulfAvita Health System Ontario HospitalComment on above:Performed By: #### [id number] #### [facility] [address], [place] [address]PD3 [Moles/Vol]29 mmol/YStssik37-92WdlodhAvita Health System Ontario Hospital Comment on above:Performed By: #### [id number] #### [facility] [address], [place] [address]Ykspvjtzyy [Mass/Vol]1.6 mg/dLHigh0.5-1.3FProtestant Deaconess HospitalComment on above:Performed By: #### [id number] #### [facility] [address], [place] [address]Mcoabzh [Mass/Vol]148 mg/fLZsjbiw39-047TbhfggAvita Health System Ontario HospitalComment on above:Performed By: #### [id number] #### [facility] [address], [place] [address]Mjkhnlmni [Moles/Vol]4.6 mmol/LNormal3.5-5.3FProtestant Deaconess HospitalComment on above:Performed By: #### [id number] #### [facility] [address], [place] [address]Ceqyjs [Moles/Vol]134 mmol/AIdl795-623KhyttbAvita Health System Ontario HospitalComment on above:Performed By: #### [id number] #### [facility] [address], [place] [address]Urkq nitrogen [Mass/Vol]15 mg/dLNormal5-21[facility] Ontario HospitalComment on above:Performed By: #### [id number] #### [facility] [address] [place] [address]Ynvzo Bank ID#on [id number] Interpretation CodeAvita Health System Ontario HospitalComment on above:Performed By: #### [id number] #### [facility] [address] [place] [address]CHV w/ Auto Diffon 89-09-4961Palywbzo Absolute0.0 E9/LNormal 0.0-0.2FProtestant Deaconess HospitalComment on above:Performed By: #### [id number] #### [facility] [address] [place] [address]Vbxluwnrm/100 WBC (Bld)0.5 %Normal0.0-2.0[facility] Ontario HospitalComment on above:Performed By: #### [id number] #### [facility] [address] [place] [address] 527[address]Ubb Absolute0.3 E9/LNormal0.0-0.5FProtestant Deaconess Hospital Comment on above:Performed By: #### [id number] #### [facility] [address] [place] [address]Kpirrrcntfg/100 WBC (Bld)3.1 %Normal0.0-8.0[facility] Ontario HospitalComment on above:Performed By: #### [id number] #### [facility] [address] [place] [address]Puionjofpeg distribution width (RBC) [Ratio]17.6 %High10.9-14.2 [facility] Ontario HospitalComment on above:Performed By: #### [id number] #### [facility] [address] [place] [address]Ofujqfgoey (Bld) [Volume fraction]31.4 %Low37.7-49.0[facility] Ontario HospitalComment on above:Performed By: #### [id number] #### [facility] [address] [place] [address]Wfmylwtplk (Bld) [Mass/Vol]11.0 g/dLLow13.5-17.5FProtestant Deaconess HospitalComment on above:Performed By: #### [id number] #### [facility] [address] [place] [address] 15[address]Usvgg Absolute0.8 E9/LLow1.0-4.0[facility] Comment on above:Performed By: #### [id number] #### [facility] [address] [place] [address]Zznqgdqkxcm/100 WBC (Bld)9.4 %Low14.0-50.0[facility] Ontario HospitalComment on above:Performed By: #### [id number] #### [facility] [address] [place] [address]UZB (RBC) [Entitic mass]34.1 viPlsy05.0-34.0[facility] Ontario HospitalComment on above:Performed By: #### [id number] #### [facility] [address] [place] [address] 90873RUOL (RBC) [Mass/Vol]35.0 g/fAIyldgf51.4-36.0[facility] Ontario HospitalComment on above:Performed By: #### [id number] #### [facility] [address] [place] [address]KWU (RBC) [Entitic vol]97.5 jBJulbwt55.0-100.0[facility] Ontario HospitalComment on above:Performed By: #### [id number] #### [facility] [address] [place] [address]Uvlf Absolute0.7 E9/LNormal0.2-1.0[facility] Comment on above:Performed By: #### [id number] #### [facility] [address] [place] [address]Amxmfcagh/100 WBC (Bld)7.5 %Normal4.0-14.0[facility] Ontario HospitalComment on above:Performed By: #### [id number] #### [facility] [address], [place] [address]Cmwxyk Absolute7.1 E9/LNormal2.0-7.5FProtestant Deaconess Hospital Comment on above:Performed By: #### [id number] #### [facility] [address], [place] [address]Wvhavl Auto79.5 %High36.0-75.0[facility] Comment on above:Performed By: #### [id number] #### [facility] [address], [place] [address]Laswlnrf719.0 E9/PTpteai328.0-500.0[facility] Comment on above:Performed By: #### [id number] #### [facility] [address], [place] [address]Mubasibn mean volume (Bld) [Entitic vol]7.2 fLNormal6.4-10.8 [facility] Ontario HospitalComment on above:Performed By: #### [id number] #### [facility] [address], [place] [address]SRE4.2 E12/LLow4.3-5.9[facility] Ontario HospitalComment on above:Performed By: #### [id number] #### [facility] [address] [place] [address]VXI8.9 E9/LNormal4.0-11.0[facility] Ontario HospitalComment on above:Performed By: #### [id number] #### [facility] [address], [place] [address]QV Abdomen/Pelvis w/ Contraston 30-05-6898KR Abdomen/Pelvis w/ ContrastExam Date/Time: 01/12/2025 14:20 EDT [...] Bharat Taylor MD Transcribed by: MARLYS Technologist: [facility] Chest w/ Contraston 88-80-1446LO Chest w/ ContrastExam Date/Time: 01/12/2025 14:20 EDT [...] Bharat Taylor MD Transcribed by: MARLYS Technologist: LouiseAvita Health System Ontario HospitalCT Head or Brain w/o Contraston 09-38-3098FC Head or Brain w/o ContrastExam Date/Time: 01/12/2025 [...] Bharat Taylor MD Transcribed by: MARLYS Technologist: [facility] HospitalCT [facility] Cervical w/o Contraston 55-29-5675RN Spine Cervical w/o ContrastExam Date/Time: 01/12/2025 14:14 [...] Taylor MD Transcribed by: MARLYS Technologist: [facility] Clinical Summaryon [id number] Clinical SummaryED Clinical Summary [place] [id number] ED Clinical Summary Person Information Name: SHAHRZAD EDGAR/New_Omar Age: 79 Years : 1945 Sex: Male Language: Cuban PCP: Zachariah Ochoa MD Marital Status: Visit [...] 01/12/2025 16:09:43 01/12/2025 16:09:43 01/12/2025 16:09:43 ADDRESS: [address] [place] [id number] PHYS DOC NOTES: MEDICAL INFORMATION: Prescriptions Given: PATIENT EDUCATION INFORMATION: Instructions: Rib Contusion; Cervical Strain and Sprain Rehab; Pulmonary Nodule; Acute Kidney Injury, Adult Follow up: With: Address: When: Travis Medellin [facility], [address] [place] [address] In 3 days 01/15/2025 Comments: Please call hematology oncology office for close outpatient follow-up regarding new onset left lungmass as discussed. Continue to monitor symptoms. Return to ED if symptoms worsen or new symptoms arise. With: Address: When: Zachariah Ochoa [facility] [facility], [place] [address] Business (1) In 3 days 01/15/2025 Comments: [...] medical advice; Mass of left lung; Neck strainMercy Health Lorain Hospital CenterED Patient Summaryon 60-17-7398PN Patient SummaryED Patient Summary [place] [id number] Patient Discharge Instructions Person Information Name: SHAHRZAD EDGAR Age: 79 Years Arrival Date: 01/12/2025 13:16:51 Discharge Diagnosis: KYLE (acute kidney injury); Accidental fall; Contusion of rib on left side; Left against medical advice; Mass of left lung; Neck strain Primary Care Physician: Zachariah Ochoa MD Provider Information Primary Provider: Faustino Wiley MD Advanced Bed Control Specialist:Darryn GAGE, Gagan Quinn The exam and treatment you received in the Emergency Department were for an urgent problem and are not intended as complete care. It is important that you follow up with a doctor, nurse practitioner,or physician???s commercial lines assistant for ongoing care. If your symptoms become worse or you do not improve asexpected and you are unable to reach your usual health care provider, you should return to the Emergency Department. We are available 24 hours a day. SHAHRZAD EDGAR has been given the following list of patient education materials, prescriptions and follow-up instructions: Follow-up Instructions: With: Address: When: Travis Medellin [facility], [address] [place] [address] [place] [address] In 3 days 01/15/2025 Comments: Please call hematology oncology office for close outpatient follow-up regarding new onset left lungmass as discussed. Continue to monitor symptoms. Return to ED if symptoms worsen or new symptoms arise. With: Address: When: Zachariah Ochoa [address] [facility], [place] [address] [facility] (1) In 3 days 01/15/2025 Comments: Please [...] opioids can be used to help relieve yfzebqzj-gm-kxmylv pain and are often prescribed following a [...] don???t involve prescription opioids. (more content not included)...NormalAvita Health System Ontario HospitalEthanolon 60-37-8209Gppaqtb Lvl<10Normal<=11[facility] HospitalComment on above: Performed By: #### [id number] #### [facility] [address] [place], [place] [address]Kop [facility] Panelon 54-87-9942Lxreouz [Mass/Vol]3.7 g/dLNormal 3.3-5.0[facility] HospitalComment on above:Performed By: #### [id number] #### [facility] [address], [place] [address]Zgifpas/Globulin [Mass ratio]1.1 {ratio}Normal1.1-2.2FProtestant Deaconess HospitalComment on above:Performed By: #### [id number] #### [facility] [address], [place] [address]Mqm Mohs410 Int._Unit/OMedw50-33GhxcsoAvita Health System Ontario Hospital Comment on above:Performed By: #### [id number] #### [facility] [address] [place], [place] [address]JDD91 Int._Unit/LNormal6-46[facility] HospitalComment on above:Performed By: #### [id number] #### [facility] [address], [place] [address]ZVS95 Int._Unit/LNormal5-43[facility] HospitalComment on above:Performed By: #### [id number] #### [facility] [address], [place] [address]Nfjl Direct0.1 mg/dLNormal0.0-0.4FProtestant Deaconess Hospital Comment on above:Performed By: #### [id number] #### [facility] [address], [place] [address]Tobv Indirect0.8 mg/dLNormal0.1-0.9[facility] Comment on above:Performed By: #### [id number] #### [facility] [address], [place] [address]Dfnf Total0.9 mg/dLNormal0.0-1.1FProtestant Deaconess Hospital Comment on above:Performed By: #### [id number] #### [facility] [address] [place], [place] [address]Itldvfwb (S) [Mass/Vol]3.3 g/dLNormal1.4-4.0[facility] HospitalComment on above:Performed By: #### [id number] #### [facility] [address], [place] [address]Igldjvm [Mass/Vol]7.0 g/dLNormal6.0-7.8[facility] HospitalComment on above:Performed By: #### [id number] #### [facility] [address], [place] [address]Potrfz Acidon 39-25-7097Hljzyj Acid Lvl1.0 mmol/LNormal0.5-2.2 [facility] HospitalComment on above:Performed By: #### [id number] #### [facility] [address] [place] [address]Mseezi Levelon 74-81-6284Bkejki Lvl22 unit/VBfyymg71-21IwphkmAvita Health System Ontario HospitalComment on above:Performed By: #### [id number] #### [facility] [address] [place] [address]QR & PTTon 25-09-5758QZW Coag (PPP) [Relative time]1.14 {INR} Invalid Interpretation CodeAvita Health System Ontario HospitalComment on above:Result Comment: INR results are specifically intended to assess patients stabilized on long-term Anticoagulation therapy suggested INR???s ???Less Intensive Anticoagulation??? 2.0 ??? 3.0 Conventional Range 3.0 ??? 4.5Performed By: #### [id number] #### [facility] [address], [place] [address]BN36.8 second(s)High9.4-12.5[facility] Orthopaedic InstituteComment on above:Result Comment: 15 days - 4 [...] the same coagulation reagent and instrumentation as [facility]. Currently there are no coagulation studies available worldwide for children to 14 days, andno normal ranges.Performed By: #### [id number] #### [facility] [address], [place] [address]WPC16.0 second(s)High25.1-36.5[facility] Comment on above:Result Comment: Parameter 15 days [...] the same coagulation reagent and instrumentation as [facility]. Currently there are no coagulation studies available worldwide for children to 14 days, andno normal ranges. Heparin therapeutic range (represented by Anti-Factor Xa activity of 0.2 - 0.4 U/mL) corresponds to PTT of 56.6 - 109.0 sec.Performed By: #### [id number] #### [facility] [address] [place], [place] [address]Yug-Dneoowj Noteon 46-27-9989Xte-Arrival NotePre-Arrival Note Pre-Arrival Summary Name: , CItizens Current Date: 01/12/2025 13:16:55 EDT Gender: Male Date of : Age: 79 Pre-Arrival Type: EMS ETA: 01/12/2025 13:31:00 EDT Primary Care Physician: Presenting Problem: fall; left shoulder pain Pre-Arrival User: Cristian MARTINEZ, Zaynab Dee Referring Source: Location: [place] Completion Date/Time: 01/12/2025 13:02:00 [facility] Emergency Department Pre-Hospital Report Form Vital Signs: Pre-Hospital Report: fall; +hit head, -loc, -thinners. +Cp. left shoulder pain. deformity 2 ribs onleft side Treatment in Route: Response to Treatment: Misc. Issues:NormalAvita Health System Ontario HospitalTroponinon 61-89-5548Kqtyltoo HS 5.10 pg/mLLow15.90-38.40[facility] HospitalComment on above:Result Comment: The 95% CI (Confidence Interval) PPV (Positive Predictive Value) for myocardial infarction in females is 38 pg/mL, in males 51 pg/mL. The results should be used in conjunction with clinical conditions of myocardial infarction. (Access High Sensitivity Troponin I Instructions For Use, Vipin Bahman, October 2017)Performed By: #### [id number] #### [facility] [address] [place], [place] [address]VW Chest Single Viewon 39-81-6742DD Chest Single ViewExam Date/Time: 01/12/2025 13:51 EDT [...] Will Matson MD Transcribed by: MARLYS Technologist: ZAYDAMagruder Memorial HospitalXR Shoulder Complete Lefton 94-91-4079TZ Shoulder Complete LeftExam Date/Time: 01/12/2025 13:52 EDT [...] Will Matson MD Transcribed by: MARLYS Technologist: SALVADORHolzer HospitaleGFRon 77-46-3142tGDY63 mL/min/1.73 m2Low>=59Av[facility] Ontario HospitalComment on above:Performed By: #### [id number] #### [facility] [address] [place] [id number] Cultureon 27-25-7730Qefvnmix identified Cx Nom (U)No Growth 2 Days PERFORMED BY: [place] [address] PATHOLOGIST CONCESSION WORKER MAYRA RANGEL M.D.[facility] Physician GroupComment on above: Performed By: #### CUU #### [place] [id number] USAECG [address] [place] 95-82-4656Hzzfs rhythm with occasional PACs QTc Miri is [address] [facility] Work Phone: ecg 12 [place] 98-25-6950Hrggnm sinus rhythm with prolonged QTc interval of [address] [facility] Work Phone: ecg [address] [place] 01-22-1993Dvvkla sinus rhythm with 1 PVC and QTc interval is borderline prolonged at 500 [facility] Work Phone: ecg [address] [place] 69-26-5800Nbyvuv sinus rhythm with a QTc interval of [address] [facility] Work Phone: ecg [address] [place] 83-28-0974Xbmzzh fibrillation with nonspecific ST-T changesCPSt. Rita's Hospital Work Phone: ecg [address] [place] 73-75-1109Enegki sinus rhythm with a QTc interval of [address] [facility] Work Phone: Tobacco Screening.on 03-71-6331Tkyvs depression screening assessmentNoOlympic Memorial Hospital [employer] Work Phone: Fall risk assessmentb) One or more falls in the last yearOlympic Memorial Hospital Sp[employer] Work Phone: Tobacco use status CPHSb) NoMEvergreenhealth Signaturey [employer] Work Phone: Office Visit (Cardiology)on 34-17-3963Kwhvgy-up visit Diagnoses/Problems Assessed Persistent atrial fibrillation (427.31) [...] try to retrieve retrieve his record from [place] Surgical History Problems History of Back surgery [...] Recorded: 06Jun2022 09:22AM Heart Rate80, L Radial Hwbpftdn574, LUE, Sitting Zsdyqzhkf56, LUE, Sitting Height6 ft 1 in Xnqasr623 lb BMI Czjyylvbqx37.84 kg/m2 BSA Calculated2.2 Tobacco Useb) No Falls [...] (more content not included)...NormalUH Touchworks Tobacco Screening.on 63-97-7761Iksu risk assessmenta) No falls within the last yearOlympic Memorial Hospital [employer] 250 DO Work Phone: Tobacco use status CPHSb) [facility] [employer] 250 DO Work Phone: Office Visit (Cardiology)on 32-41-2213Uywzpb-up visit Diagnoses/Problems Assessed Persistent atrial fibrillation (427.31) [...] Weight Tips; Status:Complete - Retrospective Authorization; Done: [id number] Some eating tips that can help you lose weight.; Status:Complete - Retrospective Authorization; Done: 05Jun2022 Persistent atrial fibrillation IO EKG Electrocardiogram- 12 Lead; Status:Complete; Done: 55Yus2262 SocHx: Former smoker Tobacco Use Screening; Status:Complete; Done: 20Eem6828 Patient Instructions Please bring all medicines, vitamins, and herbal supplements with you when you come to the office. Prescriptions will not be filled unless you are compliant with your follow up appointments or have a follow up appointment scheduled as per instruction of your physician. Refills should be requested at the time of your visit. Fall prevention education given [employer] Device discuss with patient Patient to call with correct medication list Retrieve records from [place] Will come back tomorrow with medication bottles [...] reports he was in the hospital in [place] in [place] after a stroke. Hedoes not know if [...] 4. I to retrieve his record from [place] 5. I advised the patient TO bring [...] (V15.82 (more content not included)...NormalUH TouchworksTobacco Screening.on 82-39-4814Pygic depression screening assessmentNoOlympic Memorial Hospital [facility] 250 DO Work Phone: Fall risk assessmentb) One or more falls in the last yearOlympic Memorial Hospital Heart-[place] 250 DO Work Phone: Tobacco use status CPHSb) NoMEvergreenhealth Heart- [place] 250 DO Work Phone: CBC AUTO DIFFon 72-16-2865IHVA #0.0 103/ulNormal 0.0-0.1The [facility] Health CenterComment on above:Performed By: #### CBC ####[facility] Y[address] [place], [place] [address]Dr.Yilan Pugh Basophils/100 WBC (Bld)0.5 %Normal0.2-2.0The [facility] Health CenterComment on above: Performed By: #### CBC ####[facility] X[address] [place], [place] [address]Dr.Yilan ChangEO #0.4 103/ulNormal0.0-0.7The [facility] Health CenterComment on above:Performed By: #### CBC ####[facility] Fkqllyah[address] [place], [place] [address]Dr.Yilan ChangEosinophils/100 WBC (Bld)4.7 %Normal0.9-7.0The [facility] Health CenterComment on above:Performed By: #### CBC ####[facility] Uyxg[address] [place], [place] [address]Dr.Yilan ChangErythrocyte distribution width (RBC) [Ratio]13.7 %Normal 11.0-15.0The [facility] Health CenterComment on above:Performed By: #### CBC ####[facility] O[address] [place], [place] [address]Dr. Yilan ChangHematocrit (Bld) [Volume fraction]40.5 %Critically low42.0-54.0The [facility] Health CenterComment on above:Performed By: #### CBC ####[facility] [address] [place] [address]Dr.Shondapreston KeatonHemoglobin (Bld) [Mass/Vol]13.5 g/dLCritically low14.0-18.0The [facility] CenterComment on above:Performed By: #### CBC ####[facility] Cyhfuneruo[address] [place], [place] [address]Dr.Shondapreston ChangIG #0.03 10e3/ulNormal0.00-0.03The [facility] CenterComment on above:Performed By: #### CBC ####[facility] Swroetujoo[address] [place], [place] [address]Dr.Sea ChangIG %0.4 %Normal 0.0-0.5The [facility] CenterComment on above:Performed By: #### CBC ####[facility] Mmjpfpncvs[address] [place], [place] [address]Dr.Sea PughLYMPH #2.0 103/ulNormal1.2-3.8The [facility] CenterComment on above:Performed By: #### CBC ####[facility] Nfbxbbvikt[address] [place], [place] [address]Dr.Shondapreston PughLymphocytes/100 WBC (Bld)25.4 %Twwvvg08.5-60.0The [facility] CenterComment on above:Performed By: #### CBC ####[facility] Xosiwaudrf[address] [place], [place] [address]Dr.Sea PughMANUAL DIFF REQ NONormalThe [facility] CenterComment on above:Performed By: #### CBC ####[facility] Zhinpeeuic[address] [place], [place] [address]Dr. Sea PughH (RBC) [Entitic mass]29.6 nnZqtain24.9-34.0The [facility] Comment on above:Performed By: #### CBC ####[facility] Xsol[address]rje[address] [place], [place] [address]Dr.Sea PughMCHC (RBC) [Mass/Vol]33.3 g/dL Gjqqlh68.9-35.2The [facility] CenterComment on above:Performed By: #### CBC ####[facility] [address] [place] [address]Dr. Sea PughMCV (RBC) [Entitic vol]88.8 cMOfyequ41.0-94.0The [facility] Comment on above:Performed By: #### CBC ####[facility] Xkgdbbjoux[address] [place], [place] [address]Dr.Sea PughMONO #0.8 103/ulNormal0.3-0.8 The [facility] CenterComment on above:Performed By: #### CBC ####[facility] Tpphpczhil[address] [place], [place] [address]Dr.Sea Pugh Monocytes/100 WBC (Bld)10.4 %Normal1.7-12.0The [facility] CenterComment on above:Performed By: #### CBC ####[facility] Dpnaytbozp[address] [place], [place] [address]Dr.Sea KeatonNEUT #4.6 103/ulNormal1.4-6.5The [facility] CenterComment on above:Performed By: #### CBC ####[facility] [address]oujgpxucj[address] [place], [place] [address]Dr.Sea PughNeutrophils/100 WBC (Bld)58.6 %Nrpeng09.0-75.0The [facility] CenterComment on above:Performed By: #### CBC ####[facility] Wjkgzjpoyk[address] [place], [place] [address]Dr.Sea KeatonPlatelet mean volume (Bld) [Entitic vol]9.8 fLNormal9.5-13.5 The [facility] CenterComment on above:Performed By: #### CBC ####[facility] Sebwxsvqro[address] [place], [place] [address]Dr.Shondapreston PughGhltwOZY021 103/obIhyswg577-856Pun [facility] CenterComment on above:Performed By: #### CBC ####[facility] Jmblxrdwqo[address] [place], [place] [address]Dr. Sea PughRBC4.56 106/ulCritically low4.70-6.10The [facility] CenterComment on above:Performed By: #### CBC ####[facility] [address] [place] [address]Dr.Yilan uPghWBC7.8 103/ulNormal4.0-11.0The [facility] CenterComment on above:Performed By: #### CBC ####[facility] [address] [place] [address]Dr.Yilan CampuzanoC AUTO DIFFon 93-28-4876LBWJ #0.1 103/ulNormal0.0-0.1The [facility] CenterComment on above: Performed By: #### HSTROPN, CMP, CRP #### [facility] [address] [address] [address] Sea PughBasophils/100 WBC (Bld)0.7 %Normal0.2-2.0The [facility] Comment on above:Performed By: #### HSTROPN, CMP, CRP #### [facility] [address] [address] [address] Sea Torre #0.3 103/ulNormal0.0-0.7The [facility] CenterComment on above: Performed By: #### HSTROPN, CMP, CRP #### [facility] [address] [address] [address] Sea Fordosinophils/100 WBC (Bld)4.9 %Normal0.9-7.0The [facility] Comment on above:Performed By: #### HSTROPN, CMP, CRP #### [facility] [address] [address] [address] Sea Fordrythrocyte distribution width (RBC) [Ratio]14.0 %Yzjrrv92.0-15.0 The [facility] Hospitalment on above:Performed By: #### HSTROPN, CMP, CRP #### [facility] [address] [address] [address] Sea PughHematocrit (Bld) [Volume fraction]38.5 %Critically low42.0-54.0 The [facility] HospitalComment on above:Performed By: #### HSTROPN, CMP, CRP #### [facility] [address] [address] [address] Sea PughHemoglobin (Bld) [Mass/Vol]13.3 g/dLCritically low14.0-18.0The [facility] CenterComment on above:Performed By: #### HSTROPN, CMP, CRP #### [facility] [address] [place] [address] Dr. Sea Anguiano #0.02 10e3/ulNormal0.00-0.03The [facility] Hospitalment on above:Performed By: #### HSTROPN, CMP, CRP #### [facility] [address] [place] [address] Dr. Sea Anguiano %0.3 %Normal0.0-0.5The [facility] on above: Performed By: #### HSTROPN, CMP, CRP #### [facility] [address] [place] [address] Dr. Sea Galeano #1.5 103/ulNormal1.2-3.8The [facility] Hospitalment on above:Performed By: #### HSTROPN, CMP, CRP #### [facility] [address] [place] [address] Dr. Sea Princehocytes/100 WBC (Bld)22.7 %Fqctni53.5-60.0The [facility] on above:Performed By: #### HSTROPN, CMP, CRP #### [facility] [address] [place] [address] Dr. Sea SoniUAL DIFF REQNONormalThe [facility] CenterComment on above: Performed By: #### HSTROPN, CMP, CRP #### [facility] [address] [place] [address] Dr. Sea Figueroa (RBC) [Entitic mass]29.4 bsIhfzow79.9-34.0The [facility] CenterComment on above:Performed By: #### HSTROPN, CMP, CRP #### [facility] [address] [place] [address] Dr. Sea Steele (RBC) [Mass/Vol]34.5 g/iFYnagjb43.9-35.2The [facility] CenterComment on above:Performed By: #### HSTROPN, CMP, CRP #### [facility] [address] [address] [address] Sea Steele (RBC) [Entitic vol]85.0 nOSbunjp92.0-94.0The [facility] HospitalComment on above:Performed By: #### HSTROPN, CMP, CRP #### [facility] [address] [place] [address] Dr. Sea Rain #0.7 103/ulNormal0.3-0.8The [facility] CenterComment on above:Performed By: #### HSTROPN, CMP, CRP #### [facility] [address] [place] [address] Dr. Sea Bansalocytes/100 WBC (Bld)10.2 %Normal1.7-12.0The [facility] Comment on above:Performed By: #### HSTROPN, CMP, CRP #### [facility] [address] [place] [address] Dr. Sea Zapata #4.1 103/ulNormal1.4-6.5The [facility] CenterComment on above:Performed By: #### HSTROPN, CMP, CRP #### [facility] [address] [place] [address] Dr. Sea Díazutrophils/100 WBC (Bld)61.2 %Ldaaqp82.0-75.0The [facility] CenterComment on above:Performed By: #### HSTROPN, CMP, CRP #### [facility] [address] [place] [address] Dr. Sea Caldwell mean volume (Bld) [Entitic vol]9.1 fLCritically low 9.5-13.5The [facility] HospitalComment on above:Performed By: #### HSTROPN, CMP, CRP #### [facility] [address] [place], [place] [address] Dr. Sea PughPLT216 103/zdAffbra939-946Hbe [facility] CenterComment on above: Performed By: #### HSTROPN, CMP, CRP #### [facility] [address] [address] [address] Sea PughRBC4.53 106/ulCritically low4.70-6.10The [facility] CenterComment on above:Performed By: #### HSTROPN, CMP, CRP #### [facility] [address] [address] [address] Sea PughWBC6.8 103/ulNormal4.0-11.0The [facility] CenterComment on above: Performed By: #### HSTROPN, CMP, CRP #### [facility] [address] [place] [address] Dr. Osei ChangECHOCARDIO M/2D COMPLETEon [id number] M/2D COMPLETE Patient: SHAHRZAD EDGAR Exam Date: 04/21/2022 : 1945 Gender:M Ordering : SHAIKH Marya CAMPOS . Admission #: [id number] Family : Order #: [id number] CLICK HERE TO VIEW EXAM ECHOCARDIOGRAM REPORT PROCEDURE: CARDIO PULMONARY ECHOCARDIO M/2D COMP INDICATIONS: Elevated troponin, TIA, HX:NC COMPARISON: None. DESCRIPTION: COMPLETE ECHOCARDIOGRAM Real-time transthoracic [...] by: Florinda Chan M.D. on 04/21/2022 at 14:57[facility] HospitalMRI BRAIN WO CONon 26-65-0319CSU BRAIN WO CONEXAMINATION: MRI BRAIN WO CON, [...] authenticated by: RAMESH DE SANTIAGO Date: 2022-04-21 14:41[facility] HospitalPOINT OF CARE GLUCOSEon 63-80-1184Eqjlcie [Mass/Vol]180 mg/dL Critically tdgt63-499BicMarietta Memorial HospitalComment on above:Performed By: #### POCGLUC ####[facility] [address] [place] [address]Dr. Sea PughPROF CHEM 8 (BAS METB)on 36-80-2855Rjgxk gap [Moles/Vol]13.5 mmol/LNormalMarietta Memorial HospitalComment on above:Performed By: #### DDIM #### [facility] [address] [place], [place] [address] Dr. Sea PughCalcium [Mass/Vol]8.7 mg/dLNormal8.5-10.1[facility] Comment on above:Performed By: #### DDIM #### [facility] [address] [address] [address] Sea PughChloride [Moles/Vol]100 mmol/KVylbbg99-402Pvg [facility] Comment on above:Performed By: #### DDIM #### [facility] [address] [address] [address] Sea PughCO2 [Moles/Vol]27.2 mmol/DLxpvgp71.0-32.0The [facility] Comment on above:Performed By: #### DDIM #### [facility] [address] [place] [address] Dr. Sea PughCreatinine [Mass/Vol]1.27 mg/dLNormal0.70-1.30The [facility] CenterComment on above:Performed By: #### DDIM #### [facility] [address] [place] [address] Dr. Osei ChangEGFR-AF CITIZEN [place]>60Normal>=60The [facility] CenterComment on above:Performed By: #### DDIM #### [facility] [address] [place] [address] Dr. Sea FordGFR-NON AF PMYFWKLS21 mL/min/1.91i9Dncdyfqxjj low>=60The [facility] CenterComment on above:Performed By: #### DDIM #### [facility] [address] [address] [address] Sea PughGlucose [Mass/Vol]134 mg/dLCritically acyp91-758Glb [facility] CenterComment on above:Performed By: #### DDIM #### [facility] [address] [place] [address] Dr. Sea PughPotassium [Moles/Vol]3.7 mmol/LNormal3.5-5.1The [facility] Comment on above:Performed By: #### DDIM #### [facility] [address] [place] [address] Dr. Sea Reneeum [Moles/Vol]137 mmol/GKqzvyj012-421Jun [facility] Comment on above:Performed By: #### DDIM #### [facility] [address] [place] [address] Dr. Sea Starr nitrogen [Mass/Vol]14.0 mg/dLNormal7.0-18.0The [facility] CenterComment on above:Performed By: #### DDIM #### [facility] [address] [place] [address] Dr. Sea Starr nitrogen/Creatinine [Mass ratio]11.0 mg/mgNormalThe [facility] CenterComment on above:Performed By: #### DDIM #### [facility] [address] [place] [address] Dr. Sea Boles SRINIVASAN 3-6on 16-58-3522JY [Catalytic activity/Vol]282 U/L Umxtax16-402Gdx [facility] CenterComment on above:Performed By: #### HSTROPN, CMP, CRP #### [facility] [address] [place] [address] Dr. Sea Dailey.MB [Mass/Vol]4.34 ng/mLCritically high<=3.60The [facility] on above:Performed By: #### HSTROPN, CMP, CRP #### [facility] [address] [place] [address] Dr. Sea PughHSTROP113.2 pg/mLCritically high4.0-76.1The [facility] Comment on above:Result Comment: CUT-OFF POINTS HAVE BEEN ESTABLISHED BASED ON THE FOURTH UNIVERSAL DEFINITIONS OF MYOCARDIAL INFARCTION. THE UPPER REFERENCE LIMIT (URL) OF TROPONIN, DEFINED THE 99TH PERCENTILE OF cTnI DISTRIBUTION IN A REFERENCE POPULATION, HAS BEEN CONFIRMED THE DECISION THRESHOLD FOR NC DIAGNOSIS.Performed By: #### HSTROPN, CMP, CRP #### [facility] [address] [place] [address] Dr. Sea Rachel AUTO DIFFon 28-66-9178KZNH #0.0 103/ulNormal0.0-0.1The [facility] HospitalComment on above:Performed By: #### HSTROPN, CMP, CRP #### [facility] [address] [address] [address] Sea PughBasophils/100 WBC (Bld)0.5 %Normal0.2-2.0The [facility] Comment on above:Performed By: #### HSTROPN, CMP, CRP #### [facility] [address] [place] [address] Dr. Sea Torre #0.1 103/ulNormal0.0-0.7The [facility] CenterComment on above: Performed By: #### HSTROPN, CMP, CRP #### [facility] [address] [place] [address] Dr. Sea Fordosinophils/100 WBC (Bld)0.6 %Critically low0.9-7.0The [facility] Hospitalment on above:Performed By: #### HSTROPN, CMP, CRP #### [facility] [address] [place] [address] Dr. Sea Fordrythrocyte distribution width (RBC) [Ratio]13.6 %Gfnrje42.0-15.0 The [facility] Hospitalment on above:Performed By: #### HSTROPN, CMP, CRP #### [facility] [address] [place] [address] Dr. Sea PughHematocrit (Bld) [Volume fraction]37.2 %Critically low42.0-54.0 The [facility] Hospitalment on above:Performed By: #### HSTROPN, CMP, CRP #### [facility] [address] [place] [address] Dr. Sea PughHemoglobin (Bld) [Mass/Vol]13.3 g/dLCritically low14.0-18.0The [facility] Hospitalment on above:Performed By: #### HSTROPN, CMP, CRP #### [facility] [address] [place] [address] Dr. Sea PughIG #0.04 10e3/ulCritically high0.00-0.03The [facility] Comment on above:Performed By: #### HSTROPN, CMP, CRP #### [facility] [address] [place] [address] Dr. Sea Anguiano %0.5 %Normal0.0-0.5The [facility] CenterComment on above: Performed By: #### HSTROPN, CMP, CRP #### [facility] [address] [place] [address] Dr. Sea Galeano #1.2 103/ulNormal1.2-3.8The [facility] CenterComment on above:Performed By: #### HSTROPN, CMP, CRP #### [facility] [address] [place] [address] Dr. Sea Princehocytes/100 WBC (Bld)14.7 %Critically low20.5-60.0The [facility] CenterComment on above:Performed By: #### HSTROPN, CMP, CRP #### [facility] [address] [place] [address] Dr. Sea SoniUAL DIFF REQNONormalThe [facility] CenterComment on above: Performed By: #### HSTROPN, CMP, CRP #### [facility] [address] [place] [address] Dr. Sea Steele (RBC) [Entitic mass]29.6 tyGwwhox70.9-34.0The [facility] CenterComment on above:Performed By: #### HSTROPN, CMP, CRP #### [facility] [address] [place] [address] Dr. Sea Steele (RBC) [Mass/Vol]35.8 g/dLCritically high29.9-35.2The [facility] CenterComment on above:Performed By: #### HSTROPN, CMP, CRP #### [facility] [address] [place] [address] Dr. Sea Steele (RBC) [Entitic vol]82.9 tOUpkrco52.0-94.0The [facility] CenterComment on above:Performed By: #### HSTROPN, CMP, CRP #### [facility] [address] [address] [address] Sea Rain #0.7 103/ulNormal0.3-0.8The [facility] CenterComment on above:Performed By: #### HSTROPN, CMP, CRP #### [facility] [address] [address] [address] Sea Bansalocytes/100 WBC (Bld)9.4 %Normal1.7-12.0The [facility] Comment on above:Performed By: #### HSTROPN, CMP, CRP #### [facility] [address] [place] [address] Dr. Sea Zapata #5.9 103/ulNormal1.4-6.5The [facility] CenterComment on above:Performed By: #### HSTROPN, CMP, CRP #### [facility] [address] [address] [address] Sea Díazutrophils/100 WBC (Bld)74.3 %Envuhz02.0-75.0The [facility] CenterComment on above:Performed By: #### HSTROPN, CMP, CRP #### [facility] [address] [place] [address] Dr. Sea Caldwell mean volume (Bld) [Entitic vol]9.4 fLCritically low 9.5-13.5The [facility] Hospitalment on above:Performed By: #### HSTROPN, CMP, CRP #### [facility] [address] [place] [address] Dr. Sea PughPLT215 103/ewVcdava106-366Vqz [facility] CenterComment on above: Performed By: #### HSTROPN, CMP, CRP #### [facility] [address] [place] [address] Dr. Sea PughRBC4.49 106/ulCritically low4.70-6.10The [facility] CenterComment on above:Performed By: #### HSTROPN, CMP, CRP #### [facility] [address] [address] [address] Sea PughWBC7.9 103/ulNormal4.0-11.0[facility] HospitalComment on above: Performed By: #### HSTROPN, CMP, CRP #### [facility] [address] [place] [address] Dr. Sea PughCovid-19 PCR ([facility])on 51-00-4766MGBJ-CoV-2 (COVID-19) RNA PHOENIX+probe Ql (Unsp spec)Not detectedNormalNOT DETECTEDThe [facility] Comment on above:Result Comment: When diagnostic testing [...] for this test is supported by the [employer] Professional of Health and Human Service's declaration that [...] be used).Performed By: #### DDIM #### [facility] [address] [place] [address] Dr. Sea PughPOINT OF CARE GLUCOSEon 90-49-4015Qnkpwpe [Mass/Vol]134 mg/dL Critically qldg31-018Bdd [facility] CenterComment on above:Performed By: #### DDIM #### [facility] [address] [place] [address] Dr. Sea PughPROF CHEM 8 (BAS METB)on 20-92-3896Tkcrv gap [Moles/Vol]15.3 mmol/LNormalMarietta Memorial HospitalComment on above:Performed By: #### BMP ####[facility] [address] [place], [place] [address]Dr. Yilan ChangCalcium [Mass/Vol]8.9 mg/dLNormal8.5-10.1The [facility] CenterComment on above:Performed By: #### BMP ####[facility] [address] [place], [place] [address]Dr.Yilan ChangChloride [Moles/Vol]101 mmol/LNormal 98-107The [facility] CenterComment on above:Performed By: #### BMP ####[facility] [address] [place], [place] [address]Dr.Yilan ChangCO2 [Moles/Vol]25.5 mmol/TNmivvv24.0-32.0The [facility] CenterComment on above: Performed By: #### BMP ####[facility] K[address] [place], [place] [address]Dr.Yilan ChangCreatinine [Mass/Vol]1.09 mg/dLNormal 0.70-1.30The [facility] on above:Performed By: #### BMP ####[facility] [address] [place], [place] [address]Dr. Yilan ChangEGFR-AF CITIZEN [place]>60Normal>=60The [facility] CenterComcorewell health [facility] on above: Performed By: #### BMP ####[facility] [address] [place], [place] [address]Dr.Yilan ChangEGFR-NON AF CITIZEN OF [place]>60Normal>=60The [facility] CenterComment on above:Performed By: #### BMP ####[facility] [address] [place], [place] [address]Dr.Yilan ChangGlucose [Mass/Vol]150 mg/dLCritically zwuw17-056Rsc [facility] CenterComment on above: Performed By: #### BMP ####[facility] [address] [place], [place] [address]Dr.Yilan ChangPotassium [Moles/Vol]3.8 mmol/LNormal 3.5-5.1The [facility] CenterComment on above:Performed By: #### BMP ####[facility] [address] [place], [place] [address]Ab.Sea Pugh Sodium [Moles/Vol]138 mmol/DLkxfdr943-692Qvn [facility] Hospitalment on above: Performed By: #### BMP ####[facility] [address] [place], [place] [address]Ey.Shondapreston ChangUrea nitrogen [Mass/Vol]11.0 mg/dLNormal 7.0-18.0The [facility] CenterComment on above:Performed By: #### BMP ####[facility] [address] [place], [place] [address]Nw. Sea ChangUrea nitrogen/Creatinine [Mass ratio]10.1 mg/mgNormalThe [facility] CenterComment on above:Performed By: #### BMP ####[facility] [address] [place] [id number] Burnette, HIGH SENSITIVITYon 92-03-3725LDDQDJ454.3 pg/mLCritically high4.0-76.1The [facility] on above:Result Comment: CUT-OFF POINTS HAVE BEEN ESTABLISHED BASED ON THE FOURTH UNIVERSAL DEFINITIONS OF MYOCARDIAL INFARCTION. THE UPPER REFERENCE LIMIT (URL) OF TROPONIN, DEFINED THE 99TH PERCENTILE OF cTnI DISTRIBUTION IN A REFERENCE POPULATION, HAS BEEN CONFIRMED THE DECISION THRESHOLD FOR NC DIAGNOSIS.Performed By: #### DDIM #### [facility] Laboratory [address] [address] [address] Sea PughHSTROP141.1 pg/mLCritically high4.0-76.1The [facility] Comment on above:Result Comment: CUT-OFF POINTS HAVE BEEN ESTABLISHED BASED ON THE FOURTH UNIVERSAL DEFINITIONS OF MYOCARDIAL INFARCTION. THE UPPER REFERENCE LIMIT (URL) OF TROPONIN, DEFINED THE 99TH PERCENTILE OF cTnI DISTRIBUTION IN A REFERENCE POPULATION, HAS BEEN CONFIRMED THE DECISION THRESHOLD FOR NC DIAGNOSIS.Performed By: #### HSTROPN #### [facility] [address] [place], [place] [address] Dr. Sea Boles SRINIVASAN ADMITon 52-65-5769BK [Catalytic activity/Vol]266 U/L Qfgigo16-483Hpo [facility] HospitalComment on above:Performed By: #### BMP, CMADM ####[facility] [address] [place] [id number] Dailey.MB [Mass/Vol]4.18 ng/mLCritically high<=3.60The [facility] Center Comment on above:Performed By: #### BMP, CMADM ####[facility] [address] [address]DrMook PughHSTROP32.5 pg/mLNormal4.0-76.1The [facility] Gal[facility] Hospitalment on above:Result Comment: CUT-OFF POINTS HAVE BEEN ESTABLISHED BASED ON THE FOURTH UNIVERSAL DEFINITIONS OF MY OCARDIAL INFARCTION. THE UPPER REFERENCE LIMIT (URL) OF TROPONIN, DEFINED THE 99TH PERCENTILE OF cTnI DISTRIBUTION IN A REFERENCE POPULATION, HAS BEEN CONFIRMED THE DECISION THRESHOLD FOR [place] DIAGNOSIS.Performed By: #### BMP, CMADM ####[facility] [address] [address]Dr. Sea RowlandO241 ng/mL Critically urzc93-49Hgf [facility] on above:Performed By: #### BMP, CMADM ####[facility] [address] [address]Dr. Sea Rachel AUTO DIFFon [id number] #0.0 103/ulNormal0.0-0.1The [facility] CenterComment on above:Performed By: #### CBC #### [facility] Laboratory [address] [address] [address] Sea Montgomerysophils/100 WBC (Bld)0.3 %Normal0.2-2.0The [facility] Comment on above:Performed By: #### CBC #### [facility] Laboratory [address] [address] [address] Sea Torre #0.2 103/ulNormal0.0-0.7The [facility] on above: Performed By: #### CBC #### [facility] [address] [address] [address] Sea Fordosinophils/100 WBC (Bld)1.4 %Normal0.9-7.0[facility] Comment on above:Performed By: #### CBC #### [facility] Laboratory [address] [place] [address] Dr. Sea Fordrythrocyte distribution width (RBC) [Ratio]13.5 %Zcsyzd10.0-15.0 [facility] HospitalComment on above:Performed By: #### CBC #### [facility] Laboratory [address] [place] [address] Dr. Sea PughHematocrit (Bld) [Volume fraction]37.5 %Critically low42.0-54.0 [facility] HospitalComment on above:Performed By: #### CBC #### [facility] [address] [place] [address] Dr. Sea PughHemoglobin (Bld) [Mass/Vol]13.4 g/dLCritically low14.0-18.0[facility] HospitalComment on above:Performed By: #### CBC #### [facility] [address] [place] [address] Dr. Sea Anguiano #0.08 10e3/ulCritically high0.00-0.03[facility] Comment on above:Performed By: #### CBC #### [facility] [address] [place] [address] Dr. Sea Anguiano %0.7 %Critically high0.0-0.5ThParkview HealthComment on above:Performed By: #### CBC #### [facility] [address] [place] [address] Dr. Sea Galeano #1.1 103/ulCritically low1.2-3.8The [facility] Comment on above:Performed By: #### CBC #### [facility] [address] [place] [address] Dr. Sea oNvamphocytes/100 WBC (Bld)8.7 %Critically low20.5-60.0[facility] HospitalComment on above:Performed By: #### CBC #### [facility] [address] [place] [address] Dr. Sea Merino DIFF REQNONormalThe [facility] CenterComment on above: Performed By: #### CBC #### [facility] [address] [place] [address] Dr. Sea Steele (RBC) [Entitic mass]30.0 zwIruvmc51.9-34.0The [facility] CenterComment on above:Performed By: #### CBC #### [facility] [address] [place] [address] Dr. Sea Steele (RBC) [Mass/Vol]35.7 g/dLCritically high29.9-35.2The [facility] CenterComment on above:Performed By: #### CBC #### [facility] [address] [place] [address] Dr. Sea Izaguirre (RBC) [Entitic vol]84.1 aUYcmjad82.0-94.0The [facility] CenterComment on above:Performed By: #### CBC #### [facility] [address] [place] [address] Dr. Sea Rain #0.8 103/ulNormal0.3-0.8The [facility] CenterComment on above:Performed By: #### CBC #### [facility] [address] [place] [address] Dr. Sea Bansalocytes/100 WBC (Bld)6.8 %Normal1.7-12.0[facility] Comment on above:Performed By: #### CBC #### [facility] Laboratory [address] [place] [address] Dr. Sea Zapata #10.0 103/ulCritically high1.4-6.5The [facility] Comment on above:Performed By: #### CBC #### [facility] Laboratory [address] [place] [address] Dr. Sea Díazutrophils/100 WBC (Bld)82.1 %Critically high43.0-75.0The [facility] CenterComment on above:Performed By: #### CBC #### [facility] Laboratory [address] [place] [address] Dr. Sea Santacruzlet mean volume (Bld) [Entitic vol]9.2 fLCritically low 9.5-13.5The [facility] CenterComment on above:Performed By: #### CBC #### [facility] Laboratory [address] [place] [address] Dr. Sea PughPLT203 103/hqPaijhj259-681Kbw [facility] CenterComment on above: Performed By: #### CBC #### [facility] Laboratory [address] [address] [address] Sea PughRBC4.46 106/ulCritically low4.70-6.10The [facility] CenterComment on above:Performed By: #### CBC #### [facility] Laboratory [address] [place] [address] Dr. Sea PughWBC12.1 103/ulCritically high4.0-11.0The [facility] CenterComment on above:Performed By: #### CBC #### [facility] [address] [place] [address] Dr. Sea PughCT CSPINE WO CONon 57-30-6895CR CSPINE WO CONEXAMINATION: CT CSPINE WO CON [...] visualized acute irregularities. Electronically authenticated by: REINA GMOEZ Date: 2022-04-19 20:22NoKettering Health Behavioral Medical CenterCT STROKE HEAD WOon [id number] STROKE HEAD WONONCONTRAST CT SCAN OF THE [...] Electronically authenticated by: OBI MIDDLETON Date: 2022-04-19 20:[address] [place] [address] CHEST WO W CONon 40-23-1423YLE CHEST WO W CON EXAMINATION:CTA CHEST WO [...] Electronically authenticated by: RIC MOON Date: 2022-04-19 21:52[facility] HospitalD-DIMERon 92-83-1028Y-DIMER2.01 mg/L FEUCritically high<=0.59 The [facility] Hospitalment on above:Performed By: #### DDIM #### [facility] Laboratory [address] [address] [address] Sea Castro-DIMER COMMENTSSEE BELOWOhioHealth Grant Medical Center on above:Result Comment: Increases in [...] hospitalization. Performed By: #### DDIM #### [facility] Laboratory [address] [address] [address] Sea PughPROF CHEM 8 (BAS METB)on 29-52-9554Huael gap [Moles/Vol]19.2 mmol/LNormalThe [facility] on above:Performed By: #### DALE, DOUGIEDM ####[facility] [address] [address]Dr. Sea ChangCalcium [Mass/Vol]9.1 mg/dLNormal8.5-10.1The [facility] on above:Performed By: #### DALE, CMADM ####[facility] [address] [address]Dr. Sea ChangChloride [Moles/Vol]98 mmol/L Wfsseo67-524Ggr [facility] on above:Performed By: #### DALE, CMADM ####[facility] [address] [address]DrMook Osei ChangCO2 [Moles/Vol]21.4 mmol/TAjjagh66.0-32.0The [facility] HospitalComment on above:Performed By: #### DALE, CMADM ####[facility] [address] [id number]. Yilan ChangCreatinine [Mass/Vol]1.45 mg/dLCritically high0.70-1.30The [facility] CenterComment on above:Performed By: #### DALE, CMADM ####[facility] [address] [address]Dr. Yilan ChangEGFR-AF MSFWWWLW10 mL/min/1.35r9Dibuucbgcz low>=60The [facility] CenterComment on above:Performed By: #### DALE, CMADM ####[facility] [address] [place], [place] [address]Dr. Yilan ChangEGFR- NON AF IQJBVLUJ75 mL/min/1.21j4Lwomdlqqfi low>=60The [facility] CenterComment on above:Performed By: #### DALE, CMADM ####[facility] [address] [place], [place] [address]Dr. Yilan ChangGlucose [Mass/Vol]221 mg/dL Critically bnvr19-582Zwc [facility] CenterComment on above:Performed By: #### DALE, CMADM ####[facility] [address] [place], [place] [address]Dr. Yilan ChangPotassium [Moles/Vol]3.6 mmol/LNormal3.5-5.1The [facility] CenterComment on above:Performed By: #### DALE, CMADM ####[facility] [address] [place], [place] [address]Dr. Yilan ChangSodium [Moles/Vol]135 mmol/LCritically vpy857-077Ity [facility] CenterComment on above: Performed By: #### DALE, CMADM ####[facility] [address] [place], [place] [address]Dr. Yilan ChangUrea nitrogen [Mass/Vol]12.0 mg/dL Normal7.0-18.0The [facility] CenterComment on above:Performed By: #### DALE, CMADM ####[facility] [address] [place] [address] Sea PughUrea nitrogen/Creatinine [Mass ratio]8.3 mg/mgNoFostoria City Hospital on above:Performed By: #### BMP, CMADM ####[facility] [address] [place], [place] [address]Ol. Sea PughXR CHEST 1 Von 45-28-8879EN CHEST 1 VEXAMINATION: XR CHEST 1 V HISTORY: Left arm weakness and tingling. 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 COMPARISON: 09/22/2021 portable chest TECHNIQUE: Portable chest FINDINGS: The lung parenchyma is free of consolidation or infiltrate. No pneumothorax or pleural effusion. The cardiac, mediastinal and hilar contours are normal. The visualized osseous structures exhibit no gross abnormality. IMPRESSION: No acute cardiopulmonary abnormality. Electronically authenticated by: REINA GOMEZ Date: 2022-04-19 20:12[facility] HospitalXR MODIFIED BARIUM SWALLOWon 21-99-0184SD MODIFIED BARIUM SWALLOWEXAMINATION: XR MODIFIED BARIUM SWALLOW [...] Electronically authenticated by: REINA GO Date: 2021-12-20 10:49[facility] HospitalCARDIAC SRINIVASAN 3-6on [id number] [Catalytic activity/Vol]63 U/L Tqaten40-493Vzd [facility] on above:Performed By: #### CMREP ####[facility] [address] [place], [place] [address]Gu. Sea PughCK.MB [Mass/Vol]1.00 ng/mLNormal<=3.60The [facility] on above:Performed By: #### CMREP ####[facility] [address] [place], [place] [address]Ig. Sea PughHSTROP7.1 pg/mLNormal4.0-76.1The [facility] HospitalComment on above:Result Comment: CUT-OFF POINTS HAVE BEEN ESTABLISHED BASED ON THE FOURTH UNIVERSAL DEFINITIONS OF MYOCARDIAL INFARCTION. THE UPPER REFERENCE LIMIT (URL) OF TROPONIN, DEFINED THE 99TH PERCENTILE OF cTnI DISTRIBUTION IN A REFERENCE POPULATION, HAS BEEN CONFIRMED THE DECISION THRESHOLD FOR NC DIAGNOSIS.Performed By: #### CMREP ####[facility] [address] [address]. Sea Boles SRINIVASAN ADMITon 21-63-7240VF [Catalytic activity/Vol]66 U/WFavbfv18-717Mtu [facility] Comment on above:Performed By: #### DDIM #### [facility] Laboratory [address] [address] [address] Sea Dailey.MB [Mass/Vol]0.93 ng/mLNormal<=3.60[facility] Comment on above:Performed By: #### DDIM #### [facility] Laboratory [address] [place] [address] Dr. Sea PughHSTROP8.2 pg/mLNormal4.0-76.1The [facility] on above:Result Comment: CUT-OFF POINTS HAVE BEEN ESTABLISHED BASED ON THE FOURTH UNIVERSAL DEFINITIONS OF MYOCARDIAL INFARCTION. THE UPPER REFERENCE LIMIT (URL) OF TROPONIN, DEFINED THE 99TH PERCENTILE OF cTnI DISTRIBUTION IN A REFERENCE POPULATION, HAS BEEN CONFIRMED THE DECISION THRESHOLD FOR NC DIAGNOSIS.Performed By: #### DDIM #### [facility] Laboratory [address] [address] [address] Sea RowlandO62 ng/nPFnbmav49-54Vii [facility] CenterComment on above: Performed By: #### DDIM #### [facility] Laboratory [address] [address] [address] Sea CampuzanoC AUTO DIFFon 97-59-3783HIUA #0.0 103/ulNormal0.0-0.1The [place] CenterComment on above:Performed By: #### DDIM #### [facility] Laboratory [address] [address] [address] Sea PughBasophils/100 WBC (Bld)0.3 %Normal0.2-2.0[facility] Comment on above:Performed By: #### DDIM #### [facility] Laboratory [address] [place] [address] Dr. Sea Torre #0.5 103/ulNormal0.0-0.7The [place] CenterComment on above: Performed By: #### DDIM #### [facility] Laboratory [address] [place] [address] Dr. Sea Fordosinophils/100 WBC (Bld)5.4 %Normal0.9-7.0[facility] Comment on above:Performed By: #### DDIM #### [facility] Laboratory [address] [place] [address] Dr. Sea Fordrythrocyte distribution width (RBC) [Ratio]13.7 %Vcyxdi60.0-15.0 [facility] HospitalComment on above:Performed By: #### DDIM #### [facility] Laboratory [address] [place] [address] Dr. Sea PughHematocrit (Bld) [Volume fraction]34.9 %Critically low42.0-54.0 [facility] HospitalComment on above:Performed By: #### DDIM #### [facility] Laboratory [address] [place] [address] Dr. Sea PughHemoglobin (Bld) [Mass/Vol]12.2 g/dLCritically low14.0-18.0[facility] HospitalComment on above:Performed By: #### DDIM #### [facility] Laboratory [address] [place] [address] Dr. Sea Anguiano #0.07 10e3/ulCritically high0.00-0.03The [facility] Comment on above:Performed By: #### DDIM #### [facility] Laboratory [address] [place] [address] Dr. Sea Anguiano %0.7 %Critically high0.0-0.5ThParkview HealthComment on above:Performed By: #### DDIM #### [facility] Laboratory [address] [place] [address] Dr. Sea Galeano #1.3 103/ulNormal1.2-3.8The [facility] CenterComment on above:Performed By: #### DDIM #### [facility] Laboratory [address] [place] [address] Dr. Sea Novamphocytes/100 WBC (Bld)13.5 %Critically low20.5-60.0The [facility] CenterComment on above:Performed By: #### DDIM #### [facility] Laboratory [address] [place] [address] Dr. Sea Merino DIFF REQNONormalThe [facility] CenterComment on above: Performed By: #### DDIM #### [facility] Laboratory [address] [place] [address] Dr. Sea Figueroa (RBC) [Entitic mass]30.5 lxHvsdql30.9-34.0The [facility] CenterComment on above:Performed By: #### DDIM #### [facility] Laboratory [address] [place] [address] Dr. Sea Steele (RBC) [Mass/Vol]35.0 g/pLDntnfb86.9-35.2The [facility] CenterComment on above:Performed By: #### DDIM #### [facility] Laboratory [address] [place] [address] Dr. Sea Steele (RBC) [Entitic vol]87.3 bEAtswyp65.0-94.0The [facility] CenterComment on above:Performed By: #### DDIM #### [facility] Laboratory [address] [place] [address] Dr. Sea Rain #1.3 103/ulCritically high0.3-0.8The [facility] Comment on above:Performed By: #### DDIM #### [facility] Laboratory [address] [place] [address] Dr. Sea Bansalocytes/100 WBC (Bld)12.9 %Critically high1.7-12.0The [facility] CenterComment on above:Performed By: #### DDIM #### [facility] Laboratory [address] [place] [address] Dr. Sea DíazUT #6.7 103/ulCritically high1.4-6.5The [facility] Comment on above:Performed By: #### DDIM #### [facility] Laboratory [address] [place] [address] Dr. Sea Díazutrophils/100 WBC (Bld)67.2 %Flczcs15.0-75.0The [facility] CenterComment on above:Performed By: #### DDIM #### [facility] Laboratory [address] [place] [address] Dr. Sea PughPlatelet mean volume (Bld) [Entitic vol]9.7 fLNormal9.5-13.5The [facility] CenterComment on above:Performed By: #### DDIM #### [facility] Laboratory [address] [place] [address] Dr. Sea PughPLT226 103/acIckukp370-120Pqz [facility] CenterComment on above: Performed By: #### DDIM #### [facility] Laboratory [address] [place] [address] Dr. Sea PughRBC4.00 106/ulCritically low4.70-6.10The [facility] CenterComment on above:Performed By: #### DDIM #### [facility] Laboratory [address] [place] [address] Dr. Sea PughWBC10.0 103/ulNormal4.0-11.0The [facility] CenterComment on above:Performed By: #### DDIM #### [facility] Laboratory [address] [place] [address] Dr. Sea Schultz CHEST WO W CONon 63-96-9018KZZ CHEST WO W CONEXAMINATION: CTA CHEST WO [...] Electronically authenticated by: OSITO CUELLO Date: 2021-12-06 01:29[facility] HospitalD-DIMERon 40-32-7696D-DIMER1.11 mg/L FEUCritically high<=0.59 The [facility] CenterComment on above:Performed By: #### DDIM #### [facility] Laboratory [address] [address] [address] Sea Castro-DIMER COMMENTSSEE BELOWMcCullough-Hyde Memorial Hospitalment on above:Result Comment: Increases in D-Dimer [...] hospitalization. Performed By: #### DDIM #### [facility] Laboratory [address] [address] [address] Sea PughPROF CHEM 8 (BAS METB)on 23-56-1175Grltk gap [Moles/Vol]9.5 mmol/LNormalThe [facility] CenterComment on above:Performed By: #### HSTROPN, CMP, CRP #### [facility] Laboratory [address] [address] [address] Sea PughCalcium [Mass/Vol]8.6 mg/dLNormal8.5-10.1[facility] Comment on above:Performed By: #### HSTROPN, CMP, CRP #### [facility] [address] [address] [address] Sea PughChloride [Moles/Vol]100 mmol/XNntfnk72-154Uoq [facility] Comment on above:Performed By: #### HSTROPN, CMP, CRP #### [facility] Laboratory [address] [place] [address] Dr. Sea PughCO2 [Moles/Vol]25.8 mmol/MPahbwk60.0-32.0[facility] Comment on above:Performed By: #### HSTROPN, CMP, CRP #### [facility] Laboratory [address] [address] [address] Sea PughCreatinine [Mass/Vol]1.12 mg/dLNormal0.70-1.30The [facility] CenterComment on above:Performed By: #### HSTROPN, CMP, CRP #### [facility] Laboratory [address] [place] [address] Dr. Sea FordGFR-AF CITIZEN [place]>60Normal>=60The [facility] Hospitalment on above:Performed By: #### HSTROPN, CMP, CRP #### [facility] Laboratory [address] [place] [address] Dr. Sea FordGFR-NON AF CITIZEN OF [place]>60Normal>=60The [facility] CenterComment on above:Performed By: #### HSTROPN, CMP, CRP #### [facility] Laboratory [address] [place] [address] Dr. Sea PughGlucose [Mass/Vol]201 mg/dLCritically armm62-031Rfr [facility] CenterComment on above:Performed By: #### HSTROPN, CMP, CRP #### [facility] Laboratory [address] [address] [address] Sea PughPotassium [Moles/Vol]3.3 mmol/LCritically low3.5-5.1The [facility] CenterComment on above:Performed By: #### HSTROPN, CMP, CRP #### [facility] Laboratory [address] [address] [address] Sea PughSodium [Moles/Vol]132 mmol/LCritically wyi965-301Qgq [facility] CenterComment on above:Performed By: #### HSTROPN, CMP, CRP #### [facility] Laboratory [address] [address] [address] Sea PughUrea nitrogen [Mass/Vol]16.0 mg/dLNormal7.0-18.0The [facility] CenterComment on above:Performed By: #### HSTROPN, CMP, CRP #### [facility] [address] [address] [address] Sea PughUrea nitrogen/Creatinine [Mass ratio]14.3 mg/mgNormalThe [facility] CenterComment on above:Performed By: #### HSTROPN, CMP, CRP #### [facility] [address] [address] [address] Sea Montgomerysic Metabolic Panelon 93-20-4116Qlifp gap [Moles/Vol]12 mmol/L9 - 17 mmol/LBON SECOURS MERCY HEALTHCalcium [Mass/Vol]8.3 mg/dLLow8.6 - 10.4 mg/dLBON SECOURS MERCY HEALTHChloride [Moles/Vol]100 mmol/L98 - 107 mmol/LBON SECOURS MERCY HEALTHCO2 [Moles/Vol]21 mmol/L20 - 31 mmol/LBON SECOURS MERCY HEALTHCreatinine [Mass/Vol]0.69 mg/dLLow0.7 - 1.2 mg/dLBON SECOURS MERCY HEALTH GFR >6060 - PINF mL/minBON SECOURS MERCY HEALTHGFR Non->6060 - PINF mL/minBON SECOURS MERCY HEALTHGFR/1.73 sq M.predicted MDRD (S/P/Bld) [Vol rate/Area][facility] HOSPITALComment on above:Average GFR for 70 or more years old: 75 mL/min/1.73sq m Chronic Kidney Disease: <60 mL/min/1.73sq m Kidney failure: <15 mL/min/1.73sq m eGFR calculated using average adult body mass. Additional eGFR calculator available at: http://www.[employer]/multiple_crcl_2011.htm Glucose [Mass/Vol]138 mg/yEXxlh80 - 99 mg/dLBON [facility] [place] Interpretation and review of laboratory resultsAbnormalSENTARA [facility] Potassium [Moles/Vol]4.0 mmol/L3.7 - 5.3 mmol/LBON KING'S DAUGHTERS MEDICAL CENTER OHIOSodium [Moles/Vol]133 mmol/SHyq437 - 144 mmol/LBON KING'S DAUGHTERS MEDICAL CENTER OHIOUrea nitrogen (BldV) [Mass/Vol]12 mg/dL8 - 23 mg/dLBON SANFORD ABERDEEN MEDICAL CENTERBasic Metabolic Profon 12-04-2021(cont.)NormalJ.W. Ruby Memorial HospitalComment on above:Result Comment: Average GFR for 70 or more years old: 75 mL/min/1.73sq m Chronic Kidney Disease: <60 mL/min/1.73sq m Kidney failure: <15 mL/min/1.73sq m eGFR calculated using average adult body mass. Additional eGFR calculator available at: http://www.[employer]/multiple_crcl_2011.htmPerformed By: #### DALE MALDONADO, CDP #### [facility] [address] [id number] County Attorney: Afshin Mansfield MDAnion gap [Moles/Vol]12 mmol/LNormal9-17J.W. Ruby Memorial HospitalComment on above:Performed By: #### DALE MALDONADO, CDP #### [facility] [address] [place], [place] [id number] County Attorney: WOODROW Westfallalcium [Mass/Vol]8.3 mg/dLLow8.6-10.4J.W. Ruby Memorial HospitalComment on above:Performed By: #### DALE MALDONADO, CDP #### [facility] [address] [place] [address] [place] Attorney: WOODROW Westfallhloride [Moles/Vol]100 mmol/NYujtky77-053ZiuwwJ.W. Ruby Memorial HospitalComment on above:Performed By: #### DALE MALDONADO, CDP #### [facility] [address] [place] [address] [place] Attorney: Afshin Mansfield MDCO2 [Moles/Vol]21 mmol/JTkrflk84-73LoulyJ.W. Ruby Memorial HospitalComment on above:Performed By: #### DALE MALDONADO, CDP #### [facility] [address] [place] [address] County Attorney: WOODROW Westfallreatinine [Mass/Vol]0.69 mg/dLLow0.70-1.20J.W. Ruby Memorial HospitalComment on above:Performed By: #### DALE MALDONADO, CDP #### [facility] [address] [place] [address] County Attorney: Afshin Mansfield MDGFR, Amer>60Normal>60J.W. Ruby Memorial HospitalComment on above:Performed By: #### DALE MALDONADO, CDP #### [facility] [address] [place] [address] County Attorney: Afshin Mansfield MDGFR,non Amer>60Normal>60J.W. Ruby Memorial HospitalComment on above:Performed By: #### DALE MALDONADO, CDP #### [facility] [address] [place] [address] County Attorney: Afshin Mansfield MDGlucose [Mass/Vol]138 mg/qOJvmn31-14StaywOrange County Community HospitalComment on above:Performed By: #### DALE MALDONADO, CDP #### [facility] [address] [place] [address] County Attorney: JOJO Westfallotassium [Moles/Vol]4.0 mmol/LNormal3.7-5.3 J.[facility]. Ruby Memorial HospitalComment on above:Performed By: #### DALE MALDONADO, CDP #### [facility] [address] [place] [address] County Attorney: KRISTIAN Westfallodium [Moles/Vol]133 mmol/FNvt956-757LhmvtJ.W. Ruby Memorial HospitalComment on above:Performed By: #### DALE MALDONADO, CDP #### [facility] [address] [place] [address] County Attorney: Afshin Mansfield MDUrea nitrogen [Mass/Vol]12 mg/dLNormal8-23J.W. Ruby Memorial HospitalComment on above:Performed By: #### DALE MALDONADO, CDP #### [facility] [address] [place] [address] County Attorney: Afshin Mansfield [facility] [place] [facility] [place] with Auto Differentialon [id number] Eos #0.64HighBON SECOURS MERCY HEALTHAbsolute Immature Granulocyte0.06B[facility] HEALTHAbsolute Lymph #1.09LowBON SECOURS MERCY HEALTHAbsolute Swisher #1.29HighBON SECOURS MERCY HEALTHBasophils (Bld) [#/Vol]0.04 10*3/uLBON SECOURS MERCY HEALTHBasophils/100 WBC (Bld)0 %0 - 2 %[facility] Eosinophils/100 WBC (Bld)6 %High1 - 4 %[facility] HEALTHHematocrit (Bld) [Volume fraction]36.1 %Low40.7 - 50.3 %[facility] HEALTHHemoglobin (Bld) [Mass/Vol]12.6 g/dLLow13 - 17 g/dLBON SECOURS MERCY HEALTHImmature granulocytes/100 WBC (Bld)1 %Esay6BGP SECOURS MERCY HEALTHInterpretation and review of laboratory resultsAbnormalBON SECOURS MERCY HEALTHLymphocytes/100 WBC (Bld)9 %Low24 - 43 %[facility]OSPITALH (RBC) [Entitic mass]30.1 pg25.2 - 33.5 pgBON PEOPLES HOSPITALHC (RBC) [Mass/Vol]34.9 g/gEQcop65.4 - 34.8 g/dLBON SECPROMEDICA MEMORIAL HOSPITALV (RBC) [Entitic vol]86.2 fL82.6 - 102.9 fLSENTARA VIRGINIA BEACH GENERAL HOSPITALMonocytes/100 WBC (Bld)11 %3 - 12 %[facility] [place] NRBC Automated0.00.0 per 100 WBCBON [facility]TER[facility] OHIOPlatelet distribution width (Bld) [Ratio]13.6 %11.8 - 14.4 %[facility] OHIOPlatelet mean volume (Bld) [Entitic vol]9.8 fL8.1 - 13.5 fLBON [facility] HEALTHPlatelets (Bld) [#/Vol]212 10*3/uLBON [facility] OHIORBC (Bld) [#/Vol]4.19 10*6/uLLow 4.21 - 5.77 m/uLSENTARA VIRGINIA BEACH GENERAL HOSPITALSegmented neutrophils/100 WBC (Bld)73 % High36 - 65 %[facility] OHIOSegs Absolute8.59HighBON [facility]UGHTER[facility]ENTER OHIOWBC (Bld) [#/Vol]11.7 10*3/uLHighBON SANFORD ABERDEEN MEDICAL CENTERCBC with Diffon [id number]. Basophil0.04 k/uLNormal0.00-0.20J.W. Ruby Memorial HospitalComment on above:Performed By: #### DALE MALDONADO, CDP #### [facility] [address] [place], [place] [id number] County Attorney: Virgil Westfall.Imm.Granulocyte0.06 k/uLNormal0.00-0.30J.W. Ruby Memorial HospitalComment on above:Performed By: #### DALE MALDONADO, CDP #### [facility] [address] [place], [place] [id number] County Attorney: Virgil Westfall.Neutrophil (Seg)8.59 k/uLHigh1.50-8.10J.W. Ruby Memorial HospitalComment on above:Performed By: #### DALE MALDONADO, CDP #### [facility] [address] [place] [address] County Attorney: Afshin Mansfield MDBasophils/100 WBC (Bld)0 %Normal0-2MNorthridge Hospital Medical CenterComment on above:Performed By: #### DALE MALDONADO, CDP #### [facility] [address] [place] [address]655 County Attorney: Afshin Mansfield MDEosinophils (Bld) [#/Vol]0.64 10*3/uLHigh 0.00-0.44J.W. Ruby Memorial HospitalComment on above:Performed By: #### DALE MALDONADO, CDP #### [facility] [address] [place] [address] 31672 County Attorney: MINERVA Westfallosinophils/100 WBC (Bld)6 %High1-4J.W. Ruby Memorial HospitalComment on above:Performed By: #### DALE MALDONADO, CDP #### [facility] [address] [place] [address] 75341 County Attorney: Afshin Mansfield MDErythrocyte distribution width (RBC) [Ratio]13.6 %Pnkcvj92.8-14.4J.W. Ruby Memorial HospitalComment on above:Performed By: #### DALE MALDONADO, CDP #### [facility] [address] [place] [address] 085[address] County Attorney: Afshin Mansfield MDHematocrit (Bld) [Volume fraction]36.1 %Low 40.7-50.3MNorthridge Hospital Medical CenterComment on above:Performed By: #### DALE MALDONADO, CDP #### [facility] [address] [place] [address] 24368 County Attorney: Afshin Mansfield MDHemoglobin (Bld) [Mass/Vol]12.6 g/dLLow13.0-17.0 J.W. Ruby Memorial HospitalComment on above:Performed By: #### DALE MALDONADO, CDP #### [facility] [address] [place] [address] County Attorney: Afshin Mansfield MDImmature granulocytes/100 WBC (Bld)1 %Sqpp5BzugrJ.W. Ruby Memorial HospitalComment on above:Performed By: #### DALE MALDONADO, CDP #### [facility] [address] [place] [address]990 County Attorney: Afshin Mansfield MDLymphocytes (Bld) [#/Vol]1.09 10*3/uLLow 1.10-3.70J.W. Ruby Memorial HospitalComment on above:Performed By: #### DALE MALDONADO, CDP #### [facility] [address] [place] [address] 7[address]17 County Attorney: Vijay Westfallmphocytes/100 WBC (Bld)9 %Tcz88-46RwbehJ.W. Ruby Memorial HospitalComment on above:Performed By: #### DALE MALDONADO, CDP #### [facility] [address] [place] [address] 99063 County Attorney: BRITTANY WestfallCH (RBC) [Entitic mass]30.1 ocAgvcfg50.2-33.5 J.W. Ruby Memorial HospitalComment on above:Performed By: #### DALE MALDONADO, CDP #### [facility] [address] [place] [address] 6[address]40 County Attorney: CONNIE WestfallC (RBC) [Mass/Vol]34.9 g/xBAnnx02.4-34.8J.W. Ruby Memorial HospitalComment on above:Performed By: #### DALE MALDONADO, CDP #### [facility] [address] [place] [address] 10380 County Attorney: BRITTANY WestfallCV (RBC) [Entitic vol]86.2 xHJmywmo44.6-102.9 J.[facility]. Ruby Memorial HospitalComment on above:Performed By: #### DALE MALDONADO, CDP #### [address] [address] County Attorney: BRITTANY Westfallonocytes (Bld) [#/Vol]1.29 10*3/uLHigh0.10-1.20 J.W. Ruby Memorial HospitalComment on above:Performed By: #### DALE MALDONADO, CDP #### [facility] [address] [place] [address] 59952 County Attorney: BRITTANY Westfallonocytes/100 WBC (Bld)11 %Normal3-12J.W. Ruby Memorial HospitalComment on above:Performed By: #### DALE MALDONADO, CDP #### [facility] [address] [place] [address] 40197 County Attorney: Pravin Westfallophil (Seg)73 %Rrru90-36YznqzJ.W. Ruby Memorial HospitalComment on above:Performed By: #### DALE MALDONADO, CDP #### [facility] [address] [place] [address] 02691 County Attorney: Afshin Mansfield MDNRBC Automated0.0 per 100 WBCNormal0.0J.W. Ruby Memorial HospitalComment on above:Performed By: #### DALE MALDONADO, CDP #### [facility] [address] [place] [address] 5[address]10 County Attorney: JOJO Westfalllatelet mean volume (Bld) [Entitic vol]9.8 fL Normal8.1-13.5J.W. Ruby Memorial HospitalComment on above:Performed By: #### DALE MALDONADO, CDP #### [facility] [address] [place] [address] 76873 County Attorney: JOJO Westfalllatelets (Bld) [#/Vol]212 10*3/nURkhhrm249-914 J.W. Ruby Memorial HospitalComment on above:Performed By: #### DALE MALDONADO, CDP #### [facility] [address] [place] [address] County Attorney: KEIKO WestfallBC (Bld) [#/Vol]4.19 10*6/uLLow4.21-5.77J.W. Ruby Memorial HospitalComment on above:Performed By: #### DALE MALDONADO, CDP #### [facility] [address] [place] [address] County Attorney: XANDER Westfall (Bld) [#/Vol]11.7 10*3/uLHigh3.5-11.3MNorthridge Hospital Medical CenterComment on above:Performed By: #### DALE MALDONADO, CDP #### [facility] [address] [place] [address] County Attorney: JEANETTE Westfall Glucose Fingerstickon 75-89-3327Exxuzna [Mass/Vol]110 mg/dL75 - 110 mg/dLBON [facility]ENTER OHIOBON [facility]ENTER OHIOBasic Metabolic Panelon [id number] gap [Moles/Vol]14 mmol/L9 - 17 mmol/LBON SECE[facility] CITY HOSPITALCalcium [Mass/Vol]8.0 mg/dLLow8.6 - 10.4 mg/dLBON SECOURS PARKWOOD HOSPITALChloride [Moles/Vol]101 mmol/L98 - 107 mmol/LBON SECOURS PARKWOOD HOSPITALCO2 [Moles/Vol]18 mmol/LLow20 - 31 mmol/LBON [facility] Creatinine [Mass/Vol]0.67 mg/dLLow0.7 - 1.2 mg/dLBON SECEAST LIVERPOOL CITY HOSPITALGFR >6060 - PINF mL/minBON SEC[facility] HEALTHGFR Non->6060 - PINF mL/minBON [facility]RS [facility] HEALTHGFR/1.73 sq M.predicted MDRD (S/P/Bld) [Vol rate/Area][facility] HOSPITALComment on above:Average GFR for 70 or more years old: 75 mL/min/1.73sq m Chronic Kidney Disease: <60 mL/min/1.73sq m Kidney failure: <15 mL/min/1.73sq m eGFR calculated using average adult body mass. Additional eGFR calculator available at: http://www.[employer]/multiple_crcl_2011.htm Glucose [Mass/Vol]156 mg/fFWsus99 - 99 mg/dLBON [facility] [place] Interpretation and review of laboratory resultsAbnormalSENTARA [facility] Potassium [Moles/Vol]3.9 mmol/L3.7 - 5.3 mmol/LBON [facility]ENTER OHIOSodium [Moles/Vol]133 mmol/FCmr850 - 144 mmol/LBON [facility]ENTER OHIOUrea nitrogen (BldV) [Mass/Vol]12 mg/dL8 - 23 mg/dLBON SANFORD ABERDEEN MEDICAL CENTERBasic Metabolic Profon 12-03-2021(cont.)NormalJ.W. Ruby Memorial HospitalComment on above:Result Comment: Average GFR for 70 or more years old: 75 mL/min/1.73sq m Chronic Kidney Disease: <60 mL/min/1.73sq m Kidney failure: <15 mL/min/1.73sq m eGFR calculated using average adult body mass. Additional eGFR calculator available at: http://www.[employer]/i.Meter_crcl_2011.htmPerformed By: #### DALE MALDONADO, CDP #### [facility] [address] [place], [place] [id number] County Attorney: Byron Westfall gap [Moles/Vol]14 mmol/LNormal9-17J.W. Ruby Memorial HospitalComment on above:Performed By: #### DALE MALDONADO, CDP #### [facility] [address] [place] [address] County Attorney: Afshin Madoff, MDCalcium [Mass/Vol]8.0 mg/dLLow8.6-10.4J.W. Ruby Memorial HospitalComment on above:Performed By: #### DALE MALDONADO, CDP #### [facility] [address] [place] [address] 9[address]73 County Attorney: WOODROW Westfallhloride [Moles/Vol]101 mmol/QCnkggg81-022LesnfJ.W. Ruby Memorial HospitalComment on above:Performed By: #### DALE MALDONADO, CDP #### [facility] [address] [place] [address] 27460 County Attorney: Afshin Mansfield MDCO2 [Moles/Vol]18 mmol/ZZnz38-62WerafJ.W. Ruby Memorial HospitalComment on above:Performed By: #### DALE MALDONADO, CDP #### [facility] [address] [place] [address] 36097 County Attorney: WOODROW Westfallreatinine [Mass/Vol]0.67 mg/dLLow0.70-1.20J.W. Ruby Memorial HospitalComment on above:Performed By: #### DALE MALDONADO, CDP #### [facility] [address] [place] [address] 67681 County Attorney: Afshin Mansfield MDGFR, Amer>60Normal>60J.W. Ruby Memorial HospitalComment on above:Performed By: #### DALE MALDONADO, CDP #### [facility] [address] [place] [address] 25848 County Attorney: Afshin Mansfield MDGFR,non Amer>60Normal>60J.W. Ruby Memorial HospitalComment on above:Performed By: #### DALE MALDONADO, CDP #### [facility] [address] [place] [address] 84608 County Attorney: Afshin Mansfield MDGlucose [Mass/Vol]156 mg/cXYktc26-91BmyxyOrange County Community HospitalComment on above:Performed By: #### DALE MALDONADO, CDP #### [facility] [address] [place] [address] County Attorney: JOJO Westfallotassium [Moles/Vol]3.9 mmol/LNormal3.7-5.3 J.[facility]. Ruby Memorial HospitalComment on above:Performed By: #### DALE MALDOANDO, CDP #### [facility] [address] [place] [address] County Attorney: Afshin Mansfield MDSodium [Moles/Vol]133 mmol/YWfh962-891RhhmpJ.W. Ruby Memorial HospitalComment on above:Performed By: #### DALE MALDONADO, CDP #### [facility] [address] [place] [address] 85616 County Attorney: Afshin Mansfield MDUrea nitrogen [Mass/Vol]12 mg/dLNormal8-23J.W. Ruby Memorial HospitalComment on above:Performed By: #### DALE MALDONADO, CDP #### [facility] [place] [address] County Attorney: Afshin Mansfield [facility] with Auto Differentialon [id number] Eos #0.54HighBON SECOURS MERCY HEALTHAbsolute Immature Granulocyte0.07B[facility] HEALTHAbsolute Lymph #1.07LowBON SECOURS MERCY HEALTHAbsolute Swisher #1.20[facility] HEALTHBasophils (Bld) [#/Vol]0.03 10*3/uLBON SECOURS MERCY HEALTHBasophils/100 WBC (Bld)0 %0 - 2 %[facility] Eosinophils/100 WBC (Bld)5 %High1 - 4 %[facility]CY HEALTHHematocrit (Bld) [Volume fraction]37.0 %Low40.7 - 50.3 %[facility] HEALTHHemoglobin (Bld) [Mass/Vol]13.1 g/dL13 - 17 g/dLBON SECOURS MERCY HEALTHImmature granulocytes/100 WBC (Bld)1 %Uxwq9SQL [facility] OHIOInterpretation and review of laboratory resultsAbnormalBON [facility] OHIOLymphocytes/100 WBC (Bld)10 % Low24 - 43 %[facility] HOSPITALH (RBC) [Entitic mass]30.8 pg25.2 - 33.5 pgBON PEOPLES HOSPITALHC (RBC) [Mass/Vol]35.4 g/aEOcyz73.4 - 34.8 g/dLBON SECPROMEDICA MEMORIAL HOSPITALV (RBC) [Entitic vol]87.1 fL82.6 - 102.9 fLBON [facility]UGHTER[facility]ENTER OHIOMonocytes/100 WBC (Bld)11 %3 - 12 %[facility] OHIONRBC Automated0.00.0 per 100 WBCSENTARA VIRGINIA BEACH GENERAL HOSPITALPlatelet distribution width (Bld) [Ratio]13.7 %11.8 - 14.4 %[facility] OHIOPlatelet mean volume (Bld) [Entitic vol]10.6 fL8.1 - 13.5 fLSENTARA CAREPLEX HOSPITAL HEALTHPlatelets (Bld) [#/Vol]223 10*3/uLBON [facility] OHIORBC (Bld) [#/Vol]4.25 10*6/uL4.21 - 5.77 m/uLSENTARA VIRGINIA BEACH GENERAL HOSPITALSegmented neutrophils/100 WBC (Bld)73 %High36 - 65 %[facility] OHIOSegs Absolute8.06B[facility] OHIOWBC (Bld) [#/Vol]11.0 10*3/uLBON SANFORD ABERDEEN MEDICAL CENTERCBC with Diff on [id number]. Basophil0.03 k/uLNormal0.00-0.20J.W. Ruby Memorial HospitalComment on above:Performed By: #### DALE MALDONADO CDP #### [facility] [address] [place], [place] [id number] County Attorney: Virgil Westfall.Imm.Granulocyte0.07 k/uLNormal0.00-0.30J.W. Ruby Memorial HospitalComment on above:Performed By: #### DALE MALDONADO CDP #### [facility] [address] [place] [address] County Attorney: Virgil Westfall.Neutrophil (Seg)8.06 k/uLNormal1.50-8.10 J.[facility]. Ruby Memorial HospitalComment on above:Performed By: #### DALE MALDONADO, CDP #### [address] [address] County Attorney: Afshin Mansfield MDBasophils/100 WBC (Bld)0 %Normal0-2MNorthridge Hospital Medical CenterComment on above:Performed By: #### DALE MALDONADO, CDP #### [address] [address] County Attorney: Afshin Mansfield MDEosinophils (Bld) [#/Vol]0.54 10*3/uLHigh 0.00-0.44J.W. Ruby Memorial HospitalComment on above:Performed By: #### DALE MALDONADO, CDP #### [facility] [address] [place] [address]58 County Attorney: MINERVA Westfallosinophils/100 WBC (Bld)5 %High1-4J.W. Ruby Memorial HospitalComment on above:Performed By: #### DALE MALDONADO, CDP #### [facility] [address] [place] [address]47 County Attorney: Afshin Mansfield MDErythrocyte distribution width (RBC) [Ratio]13.7 %Ihjtoz38.8-14.4J.W. Ruby Memorial HospitalComment on above:Performed By: #### DALE MALDONADO, CDP #### [facility] [address] [place] [address]80 County Attorney: Afshin Mansfield MDHematocrit (Bld) [Volume fraction]37.0 %Low 40.7-50.3MercOrange County Community HospitalComment on above:Performed By: #### DALE MALDONADO, CDP #### [facility] [address] [place] [address]24 County Attorney: Afshin Mansfield MDHemoglobin (Bld) [Mass/Vol]13.1 g/dLNormal 13.0-17.0J.W. Ruby Memorial HospitalComment on above:Performed By: #### DALE MALDONADO, CDP #### [facility] [address] [place] [address]83 County Attorney: Afshin Mansfield MDImmature granulocytes/100 WBC (Bld)1 %Nvmr3ZuxeoJ.W. Ruby Memorial HospitalComment on above:Performed By: #### DALE MALDONADO, CDP #### [facility] [address] [place] [address] County Attorney: Afshin Mansfield MDLymphocytes (Bld) [#/Vol]1.07 10*3/uLLow 1.10-3.70J.W. Ruby Memorial HospitalComment on above:Performed By: #### DALE MALDONADO, CDP #### [facility] [address] [place] [address] County Attorney: Vijay Westfallmphocytes/100 WBC (Bld)10 %Jgn27-20EoossJ.W. Ruby Memorial HospitalComment on above:Performed By: #### DALE MALDONADO, CDP #### [facility] [address] [place] [address] County Attorney: BRITTANY WestfallCH (RBC) [Entitic mass]30.8 fvEaymha98.2-33.5 J.[facility] HospitalComment on above:Performed By: #### DALE MALDONADO, CDP #### [facility] [address] [place] [address]66 County Attorney: BRITTANY WestfallCHC (RBC) [Mass/Vol]35.4 g/eXHkrq17.4-34.8J.W. Ruby Memorial HospitalComment on above:Performed By: #### DALE MALDONADO, CDP #### [facility] [address] [place] [address]21 County Attorney: BRITTANY WestfallCV (RBC) [Entitic vol]87.1 wVDtjgyz13.6-102.9 J.[facility]. Ruby Memorial HospitalComment on above:Performed By: #### DALE MALDONADO, CDP #### [facility] [address] [place] [address]47 County Attorney: BRITTANY Westfallonocytes (Bld) [#/Vol]1.20 10*3/uLNormal 0.10-1.20J.W. Ruby Memorial HospitalComment on above:Performed By: #### DALE MALDONADO, CDP #### [facility] [address] [place] [address] County Attorney: BRITTANY Westfallonocytes/100 WBC (Bld)11 %Normal3-12J.W. Ruby Memorial HospitalComment on above:Performed By: #### DALE MALDONADO, CDP #### [address] [address] County Attorney: Pravin Westfallophil (Seg)73 %Whkt09-17HvdmbJ.W. Ruby Memorial HospitalComment on above:Performed By: #### DALE MALDONADO, CDP #### [facility] [address] [place] [address] County Attorney: MARIE Westfall Automated0.0 per 100 WBCNormal0.0J.W. Ruby Memorial HospitalComment on above:Performed By: #### DALE MALDONADO, CDP #### [facility] [address] [place] [address] County Attorney: JOJO Westfalllatelet mean volume (Bld) [Entitic vol]10.6 fL Normal8.1-13.5J.W. Ruby Memorial HospitalComment on above:Performed By: #### DALE MALDONADO, CDP #### [facility] [address] [place] [address] County Attorney: Chilango Westfall ([facility]) [#/Vol]223 10*3/vNDegkme652-784 J.W. Ruby Memorial HospitalComment on above:Performed By: #### DALE MALDONADO, CDP #### [facility] [address] [place] [address] County Attorney: KEIKO Westfall ([facility]) [#/Vol]4.25 10*6/uLNormal4.21-5.77 J.[facility] Ruby Memorial HospitalComment on above:Performed By: #### DALE MALDONADO, CDP #### [facility] [address] [place] [address] County Attorney: XANDER Westfall ([facility]) [#/Vol]11.0 10*3/uLNormal3.5-11.3MNorthridge Hospital Medical CenterComment on above:Performed By: #### DALE MALDONADO, CDP #### [facility] [address] [place] [address] 19474 County Attorney: Vanessa Westfall,Bloodon [id number],BloodSpecimen Description .BLOOD Special Requests L HAND 20ML Culture NO GROWTH 5 DAYS Report Status FINAL 12/03/2021[facility]ittman Medical CenterComment on above:Performed By: #### BC #### [facility] [address] [place] [address] County Attorney: Vanessa Westfall,BloodSpecimen Description .BLOOD Special Requests r hand 20ml Culture NO GROWTH 5 DAYS Report Status FINAL 12/03/2021[facility] Rittman Medical CenterComment on above:Performed By: #### DALE MALDONADO, CDP #### [facility] [address] [place] [address]83 County Attorney: Afshin Mansfield [facility] [place] [facility] [place]ulture, Blood 1on [id number] identified Cx Nom (Unsp spec)NO GROWTH 5 DAYSBON SECSKAGIT VALLEY HOSPITALY HEALTHSpecial RequestsL HAND 20MLBON SECFull Capture Solutions [facility]ITALThe miqi.cn HEALTHSpecimen Description.BLOODBON [facility] HEALTHBacteria identified Cx Nom (Unsp spec)NO GROWTH 5 DAYSBON SECRIVERSIDE MEDICAL CENTER HEALTHSpecial Requestsr hand 20mlBON [facility] HEALTH Specimen Description.BLOODCHILDREN'S H[facility] HEALTHEKG 12 LeadOrdered By: Unknown Result on [id number] Miff76ENOOSI SECSKAGIT VALLEY HOSPITALThe miqi.cn HEALTHQ-T Dphkxolr030 msBON SECOURS PROVIDENCE HOSPITALThe miqi.cn HEALTHQRS Zbtvbyri32 msBON SECOURS PROVIDENCE HOSPITALY HEALTHQTc Calculation (Bazett)516 msBON SECSKAGIT VALLEY HOSPITALY HEALTHR Axis23 degreesBON [facility] HEALTHT Pqfb85nfwumfuQBA [facility] HEALTH Ventricular Zysr38WEXDWS [facility] HEALTHEKG 12 Lead on 79-35-3585Gsbcoa flutter with variable block Premature supraventricular complexes [...] ST no longer depressed in Anterior leads [facility] HEALTH SYSTEMNBD [employer] Work Phone: Osmolality, Urineon [id number] - Jdgzy347 mOsm/rtDurewf78-6631Iwivy [facility] Medical CenterComment on above:Performed By: #### IOCAL, BMP, CDP #### [facility] [address] [place] [address] County Attorney: Afshin Mansfield MDOsmolality, Si829LUL [facility] ABERDEEN MEDICAL CENTERPOC Glucose Fingerstickon 71-55-7458Swjraqd [Mass/Vol]151 mg/fFKwoj38 - 110 mg/dLBON [facility] OHIOInterpretation and review of laboratory resultsAbnormalJOHN [facility] Glucose [Mass/Vol]172 mg/xBBfiv43 - 110 mg/dLBON [facility] [place] Interpretation and review of laboratory resultsAbnormalBON [facility] OHIO B[facility] OHIOGlucose [Mass/Vol]160 mg/eLCkvw20 - 110 mg/dLBON [facility] OHIOInterpretation and review of laboratory resultsAbnormalJOHN RANDOLPH MEDICAL CENTERSODIUM, URINE, RANDOMon [id number] (U) [Moles/Vol]154 mmol/LBON KING'S [facility]UGHTERS MEDICAL [facility]ENTER OHIOComment on above:No normal range established.[facility] OHIOSodium, Random Uron [id number] (U) [Moles/Vol]154 mmol/LNormalJ.W. Ruby Memorial HospitalComment on above: Result Comment: No normal range established.Performed By: #### IOCAL, BMP, CDP #### [facility] [address] [place], [place] [address] County Attorney: Afshin Mansfield MDEKG 12 LeadOrdered By: Huan Mayo on [id number] Peuj127KRORCL [facility] [employer] Work Phone: Q-T [id number] [facility] HEALTH Work Phone: QRS [id number] msWALTHAM HOSPITALFull [employer] [facility] Work Phone: QTc Calculation (Tktt)470 msBON [facility] Work Phone: R Aksi13sblvxhsVCRSENTARA CAREPLEX [facility] [employer] Work Phone: T Holly-59degreesSENTARA CAREPLEX HOSPITAL [facility]ALTH Work Phone: Ventricular [id number] [employer] Work Phone: BON [employer] Work Phone: ekG 12 Leadon [id number] fibrillation with rapid ventricular response with premature ventricular or aberrantly conducted complexes Low voltage QRS 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) ACUTE NC / STEMI Consider right ventricular involvement in acute inferior infarct Abnormal ECG When compared with ECG of 02-DEC-2021 03:02, T wave inversion no longer evident in Inferior leadsPN ST Huan Thrasher MD - 12/02/2021 Atrial fibrillation with rapid ventricular response with premature ventricular or aberrantly conducted complexes Low voltage QRS 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) ACUTE NC / STEMI Consider right ventricular involvement in acute inferior infarct Abnormal ECG When compared with ECG of 02-DEC-2021 03:02, T wave inversion no longer evident in Inferior leads [facility] Work Phone: Magnesiumon [id number] [Mass/Vol]2.0 mg/dL Normal1.6-2.6[facility] County Regional Medical CenterComment on above:Performed By: #### JOEL, BMP, CDP #### [employer] [address] [place], [place] [id number] County Attorney: Afshin Mansfield MDMagnesium [Mass/Vol]2.0 mg/dL1.6 - 2.6 mg/dLBON [facility] [employer] EducationNo Panel Informationon [id number] Glucose Fingerstickon 68-84-3216Zwrfjcf [Mass/Vol]164 mg/wWYaqw00 - 110 mg/dL [facility] [employer] EducationInterpretation and review of laboratory resultsAbnormal [facility] MEDICAL CENTERGlucose [Mass/Vol]220 mg/dLHigh 75 - 110 mg/dLB[facility]DW[facility] [employer] EducationInterpretation and review of laboratory resultsAbnormalJOHN RANDOLPH MEDICAL CENTERGlucose [Mass/Vol]197 mg/fKJglf49 - 110 mg/dLBON [facility] OHIOInterpretation and review of laboratory resultsAbnormalBON SANFORD ABERDEEN MEDICAL CENTERGlucose [Mass/Vol]188 mg/yRBdmc34 - 110 mg/dLBON [facility] Interpretation and review of laboratory resultsAbnormalSENTARA [facility] B[facility] OHIOPhosphoruson 58-15-3145Zyifdhisv [Mass/Vol]2.8 mg/dL2.5 - 4.5 mg/dLBON KING'[facility]UGH[facility]ENTER OHIOPhosphorus, Inorg.on 52-31-5096Tdvkczjmee, Inorg.2.8 mg/dLNormal2.5-4.5J.W. Ruby Memorial HospitalComment on above: Performed By: #### DALE MALDONADO, CDP #### [employer] [address] [place] [address] [phone] County Attorney: Binta Westfall [id number], High Sens15 ng/L Normal0-92J.W. Ruby Memorial HospitalComment on above:Result Comment: High Sensitivity Troponin values cannot be compared with other Troponin methodologies. Patients with high levels of Biotin oral intake (i.e >5mg/day) may have falsely decreased Troponin levels. Samples collected within 8 hours of biotin intake may require additional information for diagnosis.Performed By: #### DALE MALDONADO, CDP #### [employer] [address] [place] [address] [phone] County Attorney: Quinton Westfall High Vvypwmgybcq76 ng/L0 - 22 ng/LBON [facility]ENTER OHIOComment on above: High Sensitivity Troponin values cannot be compared with other Troponin methodologies. Patients with high levels of Biotin oral intake (i.e >5mg/day) may have falsely decreased Troponin levels. Samples collected within 8 hours of biotin intake may require additional information for diagnosis. [facility] HEALTHTroponin, High Sens15 ng/LNormal0-22J.W. Ruby Memorial HospitalComment on above:Result Comment: High Sensitivity Troponin values cannot be compared with other Troponin methodologies. Patients with high levels of Biotin oral intake (i.e >5mg/day) may have falsely decreased Troponin levels. Samples collected within 8 hours of biotin intake may require additional information for diagnosis.Performed By: #### JOEL, BMP, CDP #### [employer] [address] [phone] County Attorney: Quinton Westfall, High Xhundcbisvk53 ng/L0 - 22 ng/LBON SECEsphionComment on above: High Sensitivity Troponin values cannot be compared with other Troponin methodologies. Patients with high levels of Biotin oral intake (i.e >5mg/day) may have falsely decreased Troponin levels. Samples collected within 8 hours of biotin intake may require additional information for diagnosis. [facility] BoundaryMedicalBasic Metabolic Panelon [id number] gap [Moles/Vol] 11 mmol/L9 - 17 mmol/LBON SECOURS BragBetY HEALTHCalcium [Mass/Vol]8.1 mg/dLLow8.6 - 10.4 mg/dLBON SECOURS MERCY HEALTHChloride [Moles/Vol]102 mmol/L98 - 107 mmol/LBON SECOURS MERCY HEALTHCO2 [Moles/Vol]19 mmol/LLow20 - 31 mmol/LBON [facility] BragBetY HEALTHCreatinine [Mass/Vol]0.76 mg/dL0.7 - 1.2 mg/dLBON SEC[facility] BragBetY HEALTHGFR >6060 - PINF mL/minBON SECOURS BragBetY HEALTHGFR Non->6060 - PINF mL/minBON SECOURS BragBetY HEALTHGFR/1.73 sq M.predicted MDRD (S/P/Bld) [Vol rate/Area][facility] [employer] [facility] on above:Average GFR for 70 or more years old: 75 mL/min/1.73sq m Chronic Kidney Disease: <60 mL/min/1.73sq m Kidney failure: <15 mL/min/1.73sq m eGFR calculated using average adult body mass. Additional eGFR calculator available at: http://www.[employer]ee[employer] Index/multiple_crcl_2012.htm Glucose [Mass/Vol]176 mg/jUVadh21 - 99 mg/dLBON [facility] Interpretation and review of laboratory resultsAbnormalSENTARA [facility] Potassium [Moles/Vol]4.2 mmol/L3.7 - 5.3 mmol/LBON [facility]ICAL [facility]ENTER OHIOSodium [Moles/Vol]132 mmol/ZKxh121 - 144 mmol/LBON [facility]ICAL [facility]ENTER OHIOUrea nitrogen (BldV) [Mass/Vol]16 mg/dL8 - 23 mg/dLBON SANFORD ABERDEEN MEDICAL CENTERBasic Metabolic Profon 12-01-2021(cont.)NormalJ.W. Ruby Memorial HospitalComment on above:Result Comment: Average GFR for 70 or more years old: 75 mL/min/1.73sq m Chronic Kidney Disease: <60 mL/min/1.73sq m Kidney failure: <15 mL/min/1.73sq m eGFR calculated using average adult body mass. Additional eGFR calculator available at: http://www.[employer]/multiple_crcl_2011.htmPerformed By: #### CDP, BMP #### [employer] [address] [place] [address] County Attorney: Byron Westfall gap [Moles/Vol]11 mmol/LNormal9-17J.[facility] Memorial HospitalComment on above:Performed By: #### CDP, BMP #### [employer] [address] [place] [address] County Attorney: WOODROW Westfallalcium [Mass/Vol]8.1 mg/dLLow8.6-10.4J.[facility] HospitalComment on above:Performed By: #### CDP, BMP #### [employer] [address] [place] [address] County Attorney: WOODROW Westfallhloride [Moles/Vol]102 mmol/CVuxzsu97-226FfelrJ.W. Ruby Memorial HospitalComment on above:Performed By: #### CDP, BMP #### [employer] [address] [place] [address] County Attorney: Afshin Mansfield MDCO2 [Moles/Vol]19 mmol/LFfs51-76WwrkcJ.W. Ruby Memorial HospitalComment on above:Performed By: #### CDP, BMP #### [address] [address] County Attorney: Afshin Mansfield MDCreatinine [Mass/Vol]0.76 mg/dLNormal0.70-1.20 [facility] HospitalComment on above:Performed By: #### CDP, BMP #### [address] [address] County Attorney: Afshin Mansfield MDGFR, Amer>60Normal>60J.[facility]. Ruby Memorial HospitalComment on above:Performed By: #### BEBO, BMP #### [address] [address] County Attorney: MELVIN Westfall,non Amer>60Normal>60[facility]. Ruby Memorial HospitalComment on above:Performed By: #### BEBO, BMP #### [address] [address] County Attorney: Afshin Mansfield MDGlucose [Mass/Vol]176 mg/lYZdfl23-29PzuemOrange County Community HospitalComment on above:Performed By: #### CDP, BMP #### [address] [address] County Attorney: Afshin Mansfield MDPotassium [Moles/Vol]4.2 mmol/LNormal3.7-5.3 [facility] Memorial HospitalComment on above:Performed By: #### CDP, BMP #### [address] [address] County Attorney: Afshin Mansfield MDSodium [Moles/Vol]132 mmol/MSdf915-246BpwqxJ.W. Ruby Memorial HospitalComment on above:Performed By: #### CDP, BMP #### [facility] [address] [place] [address] County Attorney: Afshin Mansfield MDUrea nitrogen [Mass/Vol]16 mg/dLNormal74 Hartman StreetComment on above:Performed By: #### CDP, BMP #### [facility] [address] [place], [place] [phone] County Attorney: Afshin Mansfield [facility] with Auto Differentialon 27-96-2467Lxwxwefg Eos #0.00[facility] MERCY HEALTHAbsolute Immature Granulocyte0.00[facility] MERCY HEALTHAbsolute Lymph #1.35[facility] MERCY HEALTHAbsolute Swisher #1.80High [facility] MERCY HEALTHBasophils (Bld) [#/Vol]0.00 [...] (Bld)9 %Low24 - 44 %[facility] HEALTH SYSTEMH (RBC) [Entitic mass]30.5 pg25.2 - 33.5 pgBON SECOURS MERCY UNIVERSITY HOSPITALS HEALTH SYSTEMHC (RBC) [Mass/Vol]34.5 g/dL28.4 - 34.8 g/dLBON SECOURS MERCY HEALTHV (RBC) [Entitic vol]88.5 fL82.6 - 102.9 fLBON SECOURS MERCY HEALTHMonocytes/100 WBC (Bld)12 %High1 - 7 %[facility] MERCY HEALTHMorphology Callum (Bld) [Interp]Normal [facility]AL HOSPITALNRBC Automated0.00.0 per 100 WBCBON [facility] Platelet distribution width (Bld) [Ratio]13.8 %11.8 - 14.4 %[facility] OHIOPlatelet mean volume (Bld) [Entitic vol]9.6 fL8.1 - 13.5 fLBON KING'S DAUGHTERS MEDICAL CENTER OHIOPlatelets (Bld) [#/Vol]235 10*3/uLBON SECEAST LIVERPOOL CITY HOSPITALRBC (Bld) [#/Vol]5.11 10*6/uL4.21 - 5.77 m/uLBON K[facility]UGHTERS [facility]ICAL [facility]ENTER OHIOSegmented neutrophils/100 WBC (Bld)79 %High36 - 66 %[facility] GENERAL HOSPITALSegs Absolute 11.85HighBON KING'S DAUGHTERS MEDICAL CENTER OHIOWBC (Bld) [#/Vol]15.0 10*3/uLHighBON [facility]ENTER OHIOBON SECEAST LIVERPOOL CITY HOSPITALCBC with Diffon [id number]. Basophil0.00 k/uLNormal0.0-0.2MercOrange County Community HospitalComment on above:Performed By: #### BEBO, BMP #### [employer] [address] [place] [address] County Attorney: Virgil Westfall.Imm.Granulocyte0.00 k/uLNormal0.00-0.30J.[facility]. Ruby Memorial HospitalComment on above:Performed By: #### BEBO, BMP #### [employer] [address] [place] [address] County Attorney: MDAbs. MalouNeutrophil (Seg)11.85 k/uLHigh1.8-7.7J.[facility]. Ruby Memorial HospitalComment on above:Performed By: #### BEBO, BMP #### [facility] [address] [place] [address] County Attorney: Afshin Mansfield MDBasophils/100 WBC (Bld)0 %Normal0-2MercOrange County Community HospitalComment on above:Performed By: #### BEBO, BMP #### [facility] [address] [place] [address] County Attorney: Afshin Mansfield MDEosinophils (Bld) [#/Vol]0.00 10*3/uLNormal 0.0-0.4J.[facility]. Ruby Memorial HospitalComment on above:Performed By: #### CDP, BMP #### [facility] [address] [place] [address] County Attorney: MINERVA Westfallosinophils/100 WBC (Bld)0 %Low1-4J.[facility]. Ruby Memorial HospitalComment on above:Performed By: #### CDP, BMP #### [address] [address] County Attorney: Afshin Mansfield MDImmature granulocytes/100 WBC (Bld)0 %Normal0 [facility] Memorial HospitalComment on above:Performed By: #### CDP, BMP #### [address] [address] County Attorney: Vijay Westfallmphocytes (Bld) [#/Vol]1.35 10*3/uLNormal 1.0-4.8J.[facility]. [facility] Memorial HospitalComment on above:Performed By: #### CDP, BMP #### [facility] [employer] [address] [place] [address] County Attorney: Vijay Westfallmphocytes/100 WBC (Bld)9 %Rvc28-27WasjgJ.W. Ruby Memorial HospitalComment on above:Performed By: #### CDP, BMP #### [facility] [employer] [address] [place] [address] County Attorney: BRITTANY Westfallonocytes (Bld) [#/Vol]1.80 10*3/uLHigh0.1-0.8 [facility] HospitalComment on above:Performed By: #### CDP, BMP #### [facility] [address] [place] [address] County Attorney: BRITTANY Westfallonocytes/100 WBC (Bld)12 %High1-7J.[facility]. Ruby Memorial HospitalComment on above:Performed By: #### CDP, BMP #### [facility] [address] [place] [address] County Attorney: BRITTANY Westfallorphology Callum (Bld) [Interp]NormalNormalMerNovato Community HospitalComment on above:Performed By: #### CDP, BMP #### [facility] [address] [place] [address] County Attorney: Afshin Mansfield MDNeutrophil (Seg)79 %Cate32-13MwmfbJ.W. Ruby Memorial HospitalComment on above:Performed By: #### CDP, BMP #### [address] [address] County Attorney: Afshin Mansfield MDErythrocyte distribution width (RBC) [Ratio]13.8 %Nlthqa39.8-14.4J.[facility]. Ruby Memorial HospitalComment on above:Performed By: #### CDP, BMP #### [facility] [address] [place] [address] County Attorney: Afshin Mansfield MDHematocrit (Bld) [Volume fraction]45.2 %Normal 40.7-50.3Mercy [facility] Medical CenterComment on above:Performed By: #### CDP, BMP #### [facility] [address] [place] [address] County Attorney: Afshin Mansfield MDHemoglobin (Bld) [Mass/Vol]15.6 g/dLNormal 13.0-17.0J.[facility]. [facility] Memorial HospitalComment on above:Performed By: #### CDP, BMP #### [facility] [address] [place] [address] County Attorney: BRITTANY WestfallCH (RBC) [Entitic mass]30.5 tmVvtphz51.2-33.5 [facility] HospitalComment on above:Performed By: #### CDP, BMP #### [address] [address] County Attorney: BRITTANY WestfallCHC (RBC) [Mass/Vol]34.5 g/sNTyzwti52.4-34.8 [facility] HospitalComment on above:Performed By: #### BEBO, BMP #### [address] [address] County Attorney: BRITTANY WestfallCV (RBC) [Entitic vol]88.5 dBRtmrkj97.6-102.9 [facility] HospitalComment on above:Performed By: #### BEBO, BMP #### [place] [address] County Attorney: VONDA WestfallBC Automated0.0 per 100 WBCNormal0.0J.W. Ruby Memorial HospitalComment on above:Performed By: #### BEBO, BMP #### [address] [address] County Attorney: Ban Westfallteflor mean volume (Bld) [Entitic vol]9.6 fL Normal8.1-13.5J.W. Ruby Memorial HospitalComment on above:Performed By: #### CDP, BMP #### [address] [address] County Attorney: JOJO Westfalllatelets (Bld) [#/Vol]235 10*3/vNPvjolr686-354 [facility] Memorial HospitalComment on above:Performed By: #### BEBO, BMP #### [address] [address] County Attorney: KEIKO WestfallBC (Bld) [#/Vol]5.11 10*6/uLNormal4.21-5.77 [facility] Memorial HospitalComment on above:Performed By: #### CDP, BMP #### [facility] [address] [place] [address] County Attorney: Afshin Mansfield MDUPSTATE GOLISANO CHILDREN'[facility] ([facility]) [#/Vol]15.0 10*3/uLHigh3.5-11.3Mcleveland clinic hillcrest hospitaly [facility] Medical CenterComment on above:Performed By: #### CDP, BMP #### [facility] [address] [place] [address] County Attorney: REYNA Westfall Complete 2D W Doppler W Coloron 12-01-2021 Transthoracic Echocardiography Report (TTE) Patient Name EDGAR Date of Study 11/30/2021 SHAHRZAD Date of 1945 Gender Male Age 76 year(s) Race Room Number 0122 Height: 73 inch, 185.42 cm Corporate ID [id number] Weight: 207 pounds, 93.9 kg # Patient Acct [id number] BSA: 2.18 m^2 BMI: 27.31 # kg/m^2 MR # [id number] [employer] We[employer] Rosmery Walsh Interpreting Physician Vicki Rob Fellow Referring Nurse Practitioner Interpreting Referring Physician Yolie Cabrera Fellow Type of Study TTE procedure:2D Echocardiogram, M-Mode, Doppler, Color Doppler, Bubble Study. Procedure Date Date: 11/30/2021 Start: 02:35 PM Study Location: [facility] Technical Quality: Adequate visualization [...] Height: 73 inch, 185.42 cm Corporate ID [id number] Weight: 207 pounds, 93.9 kg # Patient Acct [id number] BSA: 2.18 m^2 BMI: 27.31 # kg/m^2 MR # [id number] [employer] Rosmery Walsh Interpreting Physician Vicki Rob Fellow Referring Nurse Practitioner Interpreting Referring Physician Yolie Cabrera Type of Study TTE procedure:2D Echocardiogram, M-Mode, Doppler, Color Doppler, Bubble Study. Procedure Date Date: 11/30/2021 Start: 02:35 PM Study Location: [facility] Technical Quality: Adequate visualization [...] E' velocity:0.12 m/s Lateral Wall E/E':7.5 [facility] Work Phone: bON [facility] Work Phone: poc Glucose Fingerstickon 37-06-7696Qumoosd [Mass/Vol] 132 mg/jLPfaz59 - 110 mg/dLBON KING'S [facility]UGHTER[facility]ENTER OHIOInterpretation and review of laboratory resultsAbnoLead-[facility] Glucose [Mass/Vol]129 mg/oKWozm47 - 110 mg/dLBON [facility] Interpretation and review of laboratory resultsAbnormBon Secours Health SystemGlucose [Mass/Vol]369 mg/nFWgzo60 - 110 mg/dLBON [facility]'S [facility] OHIOInterpretation and review of laboratory resultsAbnormalJOHN RANDOLPH MEDICAL CENTERGlucose [Mass/Vol]196 mg/sOWmxw26 - 110 mg/dLBON KING'S [facility]UGH[facility]ENTER OHIOInterpretation and review of laboratory results AbnormalJOHN RANDOLPH MEDICAL CENTERGlucose [Mass/Vol]181 mg/eGCare70 - 110 mg/dLBON KING'S DAUGHTERS [facility]ENTER OHIOInterpretation and review of laboratory resultsAbnormCJW Medical Center Urinalysis w/ Microon 59-11-5124Audzmsdlo, SemiQt,UrNegativeNormalNEGMercy [facility] County [facility] Medical CenterComment on above:Performed By: #### UAMIC #### [facility] [place] [address] County Attorney: Lia Westfall, UrineLARGEAbnormalNEGJ.W. Ruby Memorial HospitalComment on above:Performed By: #### UAMIC #### [address] [address] County Attorney: WOODROW Westfallasts2 TO 5 HYALINENormal0-8J.[facility]. Ruby Memorial HospitalComment on above:Result Comment: Reference range defined for non- centrifuged specimen.Performed By: #### UAMIC #### [address] [address] County Attorney: WOODROW Westfalllarity (U)ClearNormalCLEARMerNovato Community HospitalComment on above:Performed By: #### UAMIC #### [address] [address] County Attorney: WOODROW Westfallolor (U)YellowNormalYELMerNovato Community HospitalComment on above:Performed By: #### UAMIC #### [address] [address] County Attorney: Afshin Mansfield MDEpithelial cells LM Ql (Urine sed)0 TO 2Normal 0-5J.[facility] HospitalComment on above:Performed By: #### UAMIC #### [address] [address] County Attorney: Afshin Mansfield MDGlucose Ql (U)NegativeNormalNEGJ.W. Ruby Memorial HospitalComment on above:Performed By: #### UAMIC #### [address] [address] County Attorney: Afshin Mansfield MDKetones Ql (U)TRACEAbnormalNEGJ.W. Ruby Memorial HospitalComment on above:Performed By: #### UAMIC #### [address] [address] County Attorney: Afshin Mansfield MDLeukocyte esterase Test strip Ql (U)Negative NormalNEGJ.W. Ruby Memorial HospitalComment on above:Performed By: #### UAMIC #### [address] [address] County Attorney: Rashard Westfalltrite,UrNegativeNormalNEGJ.W. Ruby Memorial HospitalComment on above:Performed By: #### UAMIC #### [address] [address] County Attorney: JOJO Westfall,Ur5.3Wgxvdy8.0-8.0J.[facility]. [facility] Memorial HospitalComment on above:Performed By: #### UAMIC #### [address] [address] County Attorney: JOJO Westfallrotein Ql (U)TRACEAbnormutNEGJ.W. Ruby Memorial HospitalComment on above:Performed By: #### UAMIC #### [address] [address] County Attorney: KRISTIAN Westfallpec. [place],Ur1.080Wksu6.005-1.030J.[facility]. Ruby Memorial HospitalComment on above:Performed By: #### UAMIC #### [address] [address] County Attorney: Logan Westfall RBC's20 TO 98Skeozo6-0TzzcdJ.W. Ruby Memorial HospitalComment on above:Result Comment: Reference range defined for non- centrifuged specimen.Performed By: #### UAMIC #### [address] [address] County Attorney: Logan Westfall WBC's2 TO 2Hutcwf1-5AocjgJ.W. Ruby Memorial HospitalComment on above:Performed By: #### UAMIC #### [address] [address] County Attorney: Chase Westfallbilinogen,UrNormalNormalNORMJ.W. Ruby Memorial HospitalComment on above:Performed By: #### UAMIC #### [facility] [address] [place] [address] County Attorney: Afshin Mansfield MDUrinalysis with Microscopicon 12-01-2021 Bilirubin UrineNegativeNEGATIVEBON SECOURS BragBetY HEALTHCasts UA2 TO 5 HYALINE Reference range defined for non-centrifuged specimen.[facility] HiMom HEALTH Color, UAYellowYellowBON SECOURS MERCY HEALTHEpithelial Cells UA0 TO 2B[facility] BragBetY HEALTHGlucose, UrNegativeNEGATIVEBON SECOURS [facility]OSPITALY HEALTH Interpretation and review of laboratory resultsAbnormalBON SECOURS PROVIDENCE HOSPITALThe miqi.cn HEALTH Ketones Ql (U)TRACEAbnormalNEGATIVEBON SECOURS KIP BiotechLeukocyte esterase Test strip Ql (U)NegativeNEGATIVEBON SECOURS BragBetY HEALTHNitrite, UrineNegative NEGATIVEBON SEC[facility] HiMom HEALTHpH, UA5.55 - 8[facility] HiMom HEALTHProtein, UATRACEAbnormalNEGATIVEBON SECOURS PROVIDENCE HOSPITALThe miqi.cn HEALTHRBC, UA20 TO 50B[facility] HiMom HEALTHComment on above:Reference range defined for non-centrifuged specimen. Specific [place], UA1.789Eixj0.005 - 1.03[facility] BragBetY HEALTHTurbidity UA ClearClearBON SECOURS HiMom HEALTHUrine HgbLARGEAbnormalNEGATIVEBON SECOURS KIP BiotechUrobilinogen, UrineNormalNormalB[facility] HiMom HEALTHWBC, UA2 TO 5 [facility] HiMom HEALTHBON SECOURS PROVIDENCE HOSPITALThe miqi.cn HEALTHBasic Metabolic Panelon 13-12-2899Rbsse gap [Moles/Vol]11 mmol/L9 - 17 mmol/LBON SECOU[facility] HiMom HEALTH Calcium [Mass/Vol]7.7 mg/dLLow8.6 - 10.4 mg/dLBON SECOURS MERCY HEALTHChloride [Moles/Vol]102 mmol/L98 - 107 mmol/LBON SEC[facility] BragBetY HEALTHCO2 [Moles/Vol]21 mmol/L20 - 31 mmol/LBON [facility] MERCY HEALTHCreatinine [Mass/Vol]0.79 mg/dL0.7 - 1.2 mg/dLB[facility] SEC[facility] BragBetY HEALTHGFR >6060 - PINF mL/minBON SEC[facility] HiMom HEALTHGFR Non->6060 - PINF mL/minSENTARA VIRGINIA BEACH GENERAL HOSPITALGFR/1.73 sq M.predicted MDRD (S/P/Bld) [Vol rate/Area][facility] HOSPITALComment on above:Average GFR for 70 or more years old: 75 mL/min/1.73sq m Chronic Kidney Disease: <60 mL/min/1.73sq m Kidney failure: <15 mL/min/1.73sq m eGFR calculated using average adult body mass. Additional eGFR calculator available at: http://www.[employer]/i.Meter_crcl_2012.htm Glucose [Mass/Vol]196 mg/tKTtqf78 - 99 mg/dLBON [facility] Interpretation and review of laboratory resultsAbnormalSENTARA VIR[facility]ITAL Potassium [Moles/Vol]4.5 mmol/L3.7 - 5.3 mmol/LBON KING[facility]UGHTERS MEDICAL [facility]ENTER OHIOSodium [Moles/Vol]134 mmol/FQqt331 - 144 mmol/LBON KING[facility]S [facility]ICAL [facility]ENTER OHIOUrea nitrogen (BldV) [Mass/Vol]17 mg/dL8 - 23 mg/dLBON SANFORD ABERDEEN MEDICAL CENTERBasic Metabolic Profon 94-26-3368Otzphzd [Mass/Vol]196 mg/jYSczs24-84Uwtow [facility] Medical CenterComment on above:Performed By: #### DAVEY VEE, BMP #### [facility] [address] [place] [id number] County Attorney: Afshin Mansfield MD(cont.)[facility] Comment on above:Result Comment: Average GFR for 70 or more years old: 75 mL/min/1.73sq m Chronic Kidney Disease: <60 mL/min/1.73sq m Kidney failure: <15 mL/min/1.73sq m eGFR calculated using average adult body mass. Additional eGFR calculator available at: http://www.[employer]/i.Meter_crcl_2011.htmPerformed By: #### MARIUSZ GLYHGB, BMP #### [facility] [address] [place] [id number] County Attorney: Afshin Mansfield MDAnion gap [Moles/Vol]11 mmol/LNormal9-17J.[facility] HospitalComment on above:Performed By: #### CBC, GLYHGB, BMP #### [facility] [address] [place] [address] County Attorney: Afshin Mansfield MDCalcium [Mass/Vol]7.7 mg/dLLow8.6-10.4J.[facility] HospitalComment on above:Performed By: #### CBC, GLYHGB, BMP #### [facility] [address] [place] [address] County Attorney: Afshin Mansfield MDChloride [Moles/Vol]102 mmol/UExojfz05-433JtcrqJ.W. Ruby Memorial HospitalComment on above:Performed By: #### CBC, GLYHGB, BMP #### [facility] [address] [place] [address] County Attorney: Afshin Mansfield MDCO2 [Moles/Vol]21 mmol/POhgfbh25-40GmilzJ.W. Ruby Memorial HospitalComment on above:Performed By: #### CBC, GLYHGB, BMP #### [facility] [address] [place] [address] County Attorney: Afshin Mansfield MDCreatinine [Mass/Vol]0.79 mg/dLNormal0.70-1.20 J.[facility]. Ruby Memorial HospitalComment on above:Performed By: #### CBC, GLYHGB, BMP #### [facility] [address] [place] [address] County Attorney: MELVIN Westfall, Amer>60Normal>60MerNovato Community HospitalComment on above:Performed By: #### CBC, GLYHGB, BMP #### [facility] [address] [place] [address] County Attorney: Afshin Madoff, MDGFR,non Amer>60Normal>60J.W. Ruby Memorial HospitalComment on above:Performed By: #### CBC, GLYHGB, BMP #### [facility] [address] [place] [address] County Attorney: JOJO Westfallotassium [Moles/Vol]4.5 mmol/LNormal3.7-5.3 J.[facility]. Ruby Memorial HospitalComment on above:Performed By: #### CBC, GLYHGB, BMP #### [facility] [address] [place] [address] County Attorney: Afshin Mansfield MDSodium [Moles/Vol]134 mmol/AVrp201-010YivmkJ.W. Ruby Memorial HospitalComment on above:Performed By: #### CBC, GLYHGB, BMP #### [facility] [address] [place] [address] County Attorney: Kati Westfall nitrogen [Mass/Vol]17 mg/dLNormal8-23J.W. Ruby Memorial HospitalComment on above:Performed By: #### CBC, GLYHGB, BMP #### [facility] [address] [place] [address] County Attorney: Afshin Mansfield [facility] with Auto Differentialon [id number] Eos #[facility] HEALTHAbsolute Immature Granulocyte0.12[facility] HEALTHAbsolute Lymph #1.09LowBON SECOURS MERCY HEALTHAbsolute Swisher #1.40HighBON SECOURS MERCY HEALTHBasophils AbsoluteBON SECOURS MERCY HEALTHBasophils/100 WBC (Bld)0 %0 - 2 %[facility] HEALTHEosinophils/100 WBC (Bld)0 %Low1 - 4 %[facility] HEALTHHematocrit (Bld) [Volume fraction]41.7 %40.7 - 50.3 %[facility]CY HEALTHHemoglobin (Bld) [Mass/Vol]13.9 g/dL13 - 17 g/dLBON SECOURS MERCY HEALTHImmature granulocytes/100 WBC (Bld)1 %Cszt7WAF [facility] Interpretation and review of laboratory resultsAbnormalBON [facility] Lymphocytes/100 WBC (Bld)8 %Low24 - 43 %[facility] HOSPITALH (RBC) [Entitic mass]29.6 pg25.2 - 33.5 pgBON PEOPLES HOSPITALHC (RBC) [Mass/Vol] 33.3 g/dL28.4 - 34.8 g/dLBON PEOPLES HOSPITALV (RBC) [Entitic vol]88.7 fL 82.6 - 102.9 fLBON [facility] OHIOMonocytes/100 WBC (Bld)10 %3 - 12 %[facility] HOSPITALNRBC Automated0.00.0 per 100 WBCSENTARA VIRGINIA [facility]ACH [facility] Platelet distribution width (Bld) [Ratio]14.0 %11.8 - 14.4 %[facility]AL HOSPITALPlatelet mean volume (Bld) [Entitic vol]10.2 fL8.1 - 13.5 fLSENTARA VIRGINIA BEACH GENERAL HOSPITALPlatelets (Bld) [#/Vol]230 10*3/uLBON [facility] OHIORBC (Bld) [#/Vol]4.70 10*6/uL4.21 - 5.77 m/uLSENTARA VIRGINIA BEACH GENERAL HOSPITALSegmented neutrophils/100 WBC (Bld)81 %High36 - 65 %[facility] HOSPITALSegs Absolute 11.07HighBON [facility] OHIOWBC (Bld) [#/Vol]13.7 10*3/uLHighBON SANFORD ABERDEEN MEDICAL CENTERCBC with Diffon [id number]. Basophil<0.03 Normal0.00-0.20J.W. Ruby Memorial HospitalComment on above:Performed By: #### CBC, GLYHGB, BMP #### [facility] [address] [place], [place] [id number] County Attorney: Virgil Westfall. Eosinophil<0.55Jybwbx2.00-0.44J.W. Ruby Memorial HospitalComment on above:Performed By: #### CBC, GLYHGB, BMP #### [facility] [place] [address] County Attorney: MDAbs. MalouImm.Granulocyte0.12 k/uLNormal0.00-0.30J.W. Ruby Memorial HospitalComment on above:Performed By: #### MARIUSZ, GLYHGB, BMP #### [facility] [address] [place] [address] County Attorney: Virgil Westfall.Neutrophil (Seg)11.07 k/uLHigh1.50-8.10J.W. Ruby Memorial HospitalComment on above:Performed By: #### MRAIUSZ, GLYHGB, BMP #### [facility] [address] [place] [address] County Attorney: Afshin Mansfield MDBasophils/100 WBC (Bld)0 %Normal0-2MNorthridge Hospital Medical CenterComment on above:Performed By: #### MARIUSZ, GLYHGB, BMP #### [facility] [address] [place] [address] County Attorney: Afshin Mansfield MDEosinophils/100 WBC (Bld)0 %Low1-4J.W. Ruby Memorial HospitalComment on above:Performed By: #### MARIUSZ GLYHGB, BMP #### [facility] [address] [place] [address] County Attorney: Afshin Mansfield MDErythrocyte distribution width (RBC) [Ratio]14.0 %Cgywdq19.8-14.4J.W. Ruby Memorial HospitalComment on above:Performed By: #### MARIUSZ, GLYHGB, BMP #### [facility] [address] [place] [address] County Attorney: Afshin Mansfield MDHematocrit (Bld) [Volume fraction]41.7 %Normal 40.7-50.3MercOrange County Community HospitalComment on above:Performed By: #### CBC, GLYHGB, BMP #### [facility] [address] [place] [address] County Attorney: Afshin Mansfield MDHemoglobin (Bld) [Mass/Vol]13.9 g/dLNormal 13.0-17.0J.W. Ruby Memorial HospitalComment on above:Performed By: #### CBC, GLYHGB, BMP #### [facility] [address] [place] [address] County Attorney: Afshin Mansfield MDImmature granulocytes/100 WBC (Bld)1 %Fekq2FolisJ.W. Ruby Memorial HospitalComment on above:Performed By: #### CBC, GLYHGB, BMP #### [facility] [address] [place] [address] County Attorney: Afshin Mansfield MDLymphocytes (Bld) [#/Vol]1.09 10*3/uLLow 1.10-3.70J.W. Ruby Memorial HospitalComment on above:Performed By: #### CBC, GLYHGB, BMP #### [facility] [address] [place] [address] County Attorney: Vijay Westfallmphocytes/100 WBC (Bld)8 %Guy16-68PbuldJ.W. Ruby Memorial HospitalComment on above:Performed By: #### CBC, GLYHGB, BMP #### [facility] [address] [place] [address] County Attorney: BRITTANY WestfallCH (RBC) [Entitic mass]29.6 vhYzrvfp70.2-33.5 J.[facility]. Ruby Memorial HospitalComment on above:Performed By: #### CBC, GLYHGB, BMP #### [facility] [address] [place] [address] County Attorney: BRITTANY WestfallCHC (RBC) [Mass/Vol]33.3 g/nNGangys98.4-34.8 J.[facility]. Ruby Memorial HospitalComment on above:Performed By: #### CBC, GLYHGB, BMP #### [address] [address] County Attorney: BRITTANY WestfallCV (RBC) [Entitic vol]88.7 iPOljtxx10.6-102.9 J.[facility]. Ruby Memorial HospitalComment on above:Performed By: #### CBC, GLYHGB, BMP #### [place] [address] County Attorney: BRITTANY Westfallonocytes (Bld) [#/Vol]1.40 10*3/uLHigh0.10-1.20 J.[facility]. Ruby Memorial HospitalComment on above:Performed By: #### CBC, GLYHGB, BMP #### [place] [address] County Attorney: BRITTANY Westfallonocytes/100 WBC (Bld)10 %Normal3-12J.W. Ruby Memorial HospitalComment on above:Performed By: #### CBC, GLYHGB, BMP #### [place] [address] County Attorney: Pravin Westfallophil (Seg)81 %Eiwa16-60AbkveJ.W. Ruby Memorial HospitalComment on above:Performed By: #### CBC, GLYHGB, BMP #### [place] [address] County Attorney: Afshin Mansfield MDNRBC Automated0.0 per 100 WBCNormal0.0J.W. Ruby Memorial HospitalComment on above:Performed By: #### CBC, GLYHGB, BMP #### [place] [address] County Attorney: JOJO Westfalllatelet mean volume (Bld) [Entitic vol]10.2 fL Normal8.1-13.5J.W. Ruby Memorial HospitalComment on above:Performed By: #### CBC, GLYHGB, BMP #### [facility] [address] [place] [address] County Attorney: Chilango Westfall ([facility]) [#/Vol]230 10*3/cMBxrjyr690-079 J.W. Ruby Memorial HospitalComment on above:Performed By: #### CBC, GLYHGB, BMP #### [facility] [address] [place] [address] County Attorney: CONOR Westfall ([facility]) [#/Vol]4.70 10*6/uLNormal4.21-5.77 J.[facility]. Ruby Memorial HospitalComment on above:Performed By: #### CBC, GLYHGB, BMP #### [facility] [address] [place] [address] County Attorney: XANDER Westfall ([facility]) [#/Vol]13.7 10*3/uLHigh3.5-11.3Mcleveland clinic hillcrest hospitaly [facility] Medical CenterComment on above:Performed By: #### CBC, GLYHGB, BMP #### [facility] [address] [place] [address] County Attorney: EDWIGE Westfall 12 LeadOrdered By: Vicki Rob on 81-55-1811Auirnl Ysfx09MYBTHO [employer] Work Phone: P Hehn02stcyeivXFZMemoryBistro Work Phone: P-R Iisugrpg144 msBON [employer] Work Phone: [phone]-T Nnctjnve997 msBON [employer] Work Phone: QRS Xaqrxtjh78 msBON SECEsphion Work Phone: QTc Calculation (Bazett)480 msBON [employer] Work Phone: R [id number] [employer] Work Phone: T [id number] SECEsphion Work Phone: Ventricular Frru00KGHTTU [facility] [employer] Work Phone: BON [facility] [employer] Work Phone: EKG 12 Leadon 47-21-5768Fgfwya sinus rhythm Low voltage QRS Inferior infarct , age undetermined Abnormal ECG No previous ECGs availableALLEGHENY HEALTH NETWORKVicki Lange MD - 11/30/2021 Normal sinus rhythm Low voltage QRS Inferior infarct , age undetermined Abnormal ECG No previous ECGs available WALTHAM HOSPITALEsphion Work Phone: pOC Glucose Fingerstickon 03-18-6104Ahrwsth [Mass/Vol] 160 mg/uZXonw67 - 110 mg/dLBON COP[facility] SPR[facility] EAST HOSPITALFull Capture Solutions PROVIDENCE HOSPITALNBD Nanotechnologies IncInterpretation and review of laboratory resultsAbnormCJW Medical Center Glucose [Mass/Vol]181 mg/rWNhaj37 - 110 mg/dLBON [facility] Interpretation and review of laboratory resultsAbnormCentra [facility] BON [facility] Br[employer] EducationGlucose [Mass/Vol]182 mg/eCGvff76 - 110 mg/dLBON [facility]AST HOSPITALFull Capture Solutions [facility]OSPITALNBD Nanotechnologies IncInterpretation and review of laboratory resultsAbnoSentara Virginia Beach General HospitalThe miqi.cn [facility] HOSPITALBasic Metabolic Panelon 76-19-5859Uiziu gap [Moles/Vol]12 mmol/L9 - 17 mmol/LBON [facility] EAST HOSPITALFull Capture Solutions [facility]OSPITALNBD Nanotechnologies IncCalcium [Mass/Vol]8.3 mg/dLLow8.6 - 10.4 mg/dLBON [facility] EAST HOSPITALFull Capture Solutions [facility]OSPITALNBD Nanotechnologies IncChloride [Moles/Vol]101 mmol/L98 - 107 mmol/LBON [facility]AST HOSPITALFull Capture Solutions [facility]OSPITALNBD Nanotechnologies IncCO2 [Moles/Vol]20 mmol/L20 - 31 mmol/LBON COPPER SPRINGS EAST HOSPITALEsphionCreatinine [Mass/Vol]0.89 mg/dL0.7 - 1.2 mg/dLBON [facility]AST HOSPITALFull Capture Solutions [facility]OSPITALNBD Nanotechnologies IncGFR >6060 - PINF mL/minWALTHAM HOSPITALFull Capture Solutions [facility] HOSPITALGFR Non->6060 - PINF mL/minBON KING'S DAUGHTER[facility]ENTER OHIOGFR/1.73 sq M.predicted MDRD (S/P/Bld) [Vol rate/Area][facility] HOSPITALComment on above:Average GFR for 70 or more years old: 75 mL/min/1.73sq m Chronic Kidney Disease: <60 mL/min/1.73sq m Kidney failure: <15 mL/min/1.73sq m eGFR calculated using average adult body mass. Additional eGFR calculator available at: http://www.[employer]/multiple_crcl_2012.htm Glucose [Mass/Vol]198 mg/oCBsgk27 - 99 mg/dLBON [facility] [place] Interpretation and review of laboratory resultsAbnormalSENTARA [facility] Potassium [Moles/Vol]4.4 mmol/L3.7 - 5.3 mmol/LBON [facility]ENTER OHIOSodium [Moles/Vol]133 mmol/VZpb671 - 144 mmol/LBON [facility]UGH[facility]ENTER OHIOUrea nitrogen (BldV) [Mass/Vol]14 mg/dL8 - 23 mg/dLBON SANFORD ABERDEEN MEDICAL CENTERBasic Metabolic Profon 11-29-2021(cont.)NormalJ.W. Ruby Memorial HospitalComment on above:Result Comment: Average GFR for 70 or more years old: 75 mL/min/1.73sq m Chronic Kidney Disease: <60 mL/min/1.73sq m Kidney failure: <15 mL/min/1.73sq m eGFR calculated using average adult body mass. Additional eGFR calculator available at: http://www.[employer]/i.Meter_crcl_2011.htmPerformed By: #### DALE MALDONADO, CDP #### [facility] [address] [place] [address] County Attorney: Byron Westfall gap [Moles/Vol]12 mmol/LNormal9-17J.W. Ruby Memorial HospitalComment on above:Performed By: #### DALE MALDONADO, CDP #### [facility] [address] [place] [address] County Attorney: Afshin Madoff, MDCalcium [Mass/Vol]8.3 mg/dLLow8.6-10.4J.W. Ruby Memorial HospitalComment on above:Performed By: #### DALE MALDONADO, CDP #### [facility] [address] [place] [address] County Attorney: WOODROW Westfallhloride [Moles/Vol]101 mmol/TSbvmrq66-399SvaprJ.W. Ruby Memorial HospitalComment on above:Performed By: #### DALE MALDONADO, CDP #### [facility] [address] [place] [address] County Attorney: Afshin Mansfield MDCO2 [Moles/Vol]20 mmol/WUdvkcv65-06TahcxJ.W. Ruby Memorial HospitalComment on above:Performed By: #### DALE MALDONADO, CDP #### [facility] [address] [place] [address] County Attorney: WOODROW Westfallreatinine [Mass/Vol]0.89 mg/dLNormal0.70-1.20 J.[facility]. Ruby Memorial HospitalComment on above:Performed By: #### DALE MALDONADO, CDP #### [facility] [address] [place] [address] County Attorney: Afshin Mansfield MDGFR, Amer>60Normal>60J.W. Ruby Memorial HospitalComment on above:Performed By: #### DALE MALDONADO, CDP #### [facility] [address] [place] [address] County Attorney: Afshin Mansfield MDGFR,non Amer>60Normal>60J.W. Ruby Memorial HospitalComment on above:Performed By: #### DALE MALDONADO, CDP #### [facility] [address] [place] [address] County Attorney: Afshin Mansfield MDGlucose [Mass/Vol]198 mg/fABqbk44-14RhhvuNorthridge Hospital Medical CenterComment on above:Performed By: #### DALE MALDONADO, CDP #### [facility] [address] [place] [address] County Attorney: JOJO Westfallotassium [Moles/Vol]4.4 mmol/LNormal3.7-5.3 J.[facility]. Ruby Memorial HospitalComment on above:Performed By: #### DALE MALDONADO, CDP #### [facility] [address] [place] [address] County Attorney: KRISTIAN Westfallodium [Moles/Vol]133 mmol/VLpc156-866TxlxjJ.W. Ruby Memorial HospitalComment on above:Performed By: #### DALE MALDONADO, CDP #### [facility] [address] [place] [address] County Attorney: Afshin Mansfield MDUrea nitrogen [Mass/Vol]14 mg/dLNormal8-23J.W. Ruby Memorial HospitalComment on above:Performed By: #### DALE MALDONADO, CDP #### [facility] [address] [place] [address] County Attorney: Afshin Mansfield [facility] with Auto Differentialon [id number] Eos #0.00B[facility] HEALTHAbsolute Immature Granulocyte0.19[facility] HEALTHAbsolute Lymph #0.57LowBON SECOURS MERCY HEALTHAbsolute Swisher #1.33 HighBON SECOURS MERCY HEALTHBasophils (Bld) [#/Vol]0.00 10*3/uLBON SECOURS MERCY HEALTHBasophils/100 WBC (Bld)0 %0 - 2 %[facility] HEALTHEosinophils/100 WBC (Bld)0 %Low1 - 4 %[facility]CY HEALTHHematocrit (Bld) [Volume fraction] 40.4 %Low40.7 - 50.3 %[facility]CY HEALTHHemoglobin (Bld) [Mass/Vol]13.6 g/dL13 - 17 g/dLBON SECOURS MERCY HEALTHImmature granulocytes/100 WBC (Bld)1 % Uxmw9CUT [facility] OHIOInterpretation and review of laboratory results AbnormalBON [facility] OHIOLymphocytes/100 WBC (Bld)3 %Low24 - 43 %BON [facility]OPLES HOSPITALH (RBC) [Entitic mass]30.5 pg25.2 - 33.5 pgBON PEOPLES HOSPITALHC (RBC) [Mass/Vol]33.7 g/dL28.4 - 34.8 g/dLBON SECPROMEDICA MEMORIAL HOSPITALV (RBC) [Entitic vol]90.6 fL82.6 - 102.9 fLSENTARA VIRGINIA BEACH GENERAL [facility]PITAL Monocytes/100 WBC (Bld)7 %3 - 12 %BON [facility] OHIOMorphology Callum (Bld) [Interp]NormalSENTARA VIRGINIA BEACH GENERAL HOSPITALNRBC Automated0.00.0 per 100 WBCBON [facility]S DAUGHTERS [facility]ENTER OHIOPlatelet distribution width (Bld) [Ratio]13.7 %11.8 - 14.4 % B[facility] OHIOPlatelet mean volume (Bld) [Entitic vol]9.9 fL8.1 - 13.5 fLSENTARA VIRGINIA BEACH GENERAL HOSPITALPlatelets (Bld) [#/Vol]250 10*3/uLSENTARA VIRGINIA BEACH GENERAL HOSPITALRBC (Bld) [#/Vol]4.46 10*6/uL4.21 - 5.77 m/uLSENTARA VIRGINIA BEACH GENERAL [facility]OSPITAL Segmented neutrophils/100 WBC (Bld)89 %High36 - 65 %[facility] OHIOSegs Nqlghdnk52.91HighSENTARA VIRGINIA BEACH GENERAL HOSPITALWBC (Bld) [#/Vol]19.0 10*3/uLHighSENTARA VIRGINIA BEACH GENERAL HOSPITALBON [facility] OHIOCBC with Diffon [id number]. Basophil0.00 k/uLNormal0.00-0.20J.W. Ruby Memorial HospitalComment on above:Performed By: #### DALE MALDONADO, CDP #### [facility] [address] [place] [address] County Attorney: Virgil Westfall.Imm.Granulocyte0.19 k/uLNormal0.00-0.30J.W. Ruby Memorial HospitalComment on above:Performed By: #### DALE MALDONADO, CDP #### [facility] [address] [place] [address] County Attorney: Virgil Westfall.Neutrophil (Seg)16.91 k/uLHigh1.50-8.10J.W. Ruby Memorial HospitalComment on above:Performed By: #### DALE MALDONADO, CDP #### [facility] [address] [place] [address] County Attorney: Afshin Mansfield MDBasophils/100 WBC (Bld)0 %Normal0-2MercOrange County Community HospitalComment on above:Performed By: #### DALE MALDONADO, CDP #### [facility] [address] [place] [address] County Attorney: Afshin Mansfield MDEosinophils (Bld) [#/Vol]0.00 10*3/uLNormal 0.00-0.44J.W. Ruby Memorial HospitalComment on above:Performed By: #### DALE MALDONADO, CDP #### [facility] [address] [place] [address] County Attorney: Afshin Mansfield MDEosinophils/100 WBC (Bld)0 %Low1-4J.W. Ruby Memorial HospitalComment on above:Performed By: #### DALE MALDONADO, CDP #### [facility] [address] [place] [address] County Attorney: Afshin Mansfield MDImmature granulocytes/100 WBC (Bld)1 %Mfba3MxufsJ.W. Ruby Memorial HospitalComment on above:Performed By: #### DALE MALDONADO, CDP #### [facility] [address] [place] [address] County Attorney: Afshin Mansfield MDLymphocytes (Bld) [#/Vol]0.57 10*3/uLLow 1.10-3.70J.W. Ruby Memorial HospitalComment on above:Performed By: #### DALE MALDONADO, CDP #### [facility] [address] [place] [address] County Attorney: Afshin Mansfield MDLymphocytes/100 WBC (Bld)3 %Fwe34-58FrhkpJ.W. Ruby Memorial HospitalComment on above:Performed By: #### DALE MALDONADO, CDP #### [facility] [address] [place] [address] County Attorney: Afshin Mansfield MDMonocytes (Bld) [#/Vol]1.33 10*3/uLHigh0.10-1.20 [facility] Memorial HospitalComment on above:Performed By: #### DALE MALDONADO, CDP #### [facility] [address] [place] [address] County Attorney: BRITTANY Westfallonocytes/100 WBC (Bld)7 %Normal3-12J.W. Ruby Memorial HospitalComment on above:Performed By: #### DALE MALDONADO, CDP #### [facility] [address] [place] [address] County Attorney: BRITTANY Westfallorphology Callum (Bld) [Interp]NormalNormalJ.W. Ruby Memorial HospitalComment on above:Performed By: #### DALE MALDONADO, CDP #### [facility] [address] [place] [address] County Attorney: Afshin Mansfield MDNeutrophil (Seg)89 %Kadb22-54BwyoeJ.W. Ruby Memorial HospitalComment on above:Performed By: #### DALE MALDONADO, CDP #### [facility] [address] [place] [address] County Attorney: Afshin Mansfield MDErythrocyte distribution width (RBC) [Ratio]13.7 %Dnfhew99.8-14.4J.W. Ruby Memorial HospitalComment on above:Performed By: #### DALE MALDONADO, CDP #### [facility] [address] [place] [address] County Attorney: Afshin Mansfield MDHematocrit (Bld) [Volume fraction]40.4 %Low 40.7-50.3[facility] Regional Medical CenterComment on above:Performed By: #### DALE MALDONADO, CDP #### [address] [address] County Attorney: Afshin Mansfield MDHemoglobin (Bld) [Mass/Vol]13.6 g/dLNormal 13.0-17.0J.W. Ruby Memorial HospitalComment on above:Performed By: #### DALE MALDONADO, CDP #### [address] [address] County Attorney: BRITTANY WestfallCH (RBC) [Entitic mass]30.5 uzFtpvok47.2-33.5 J[facility] HospitalComment on above:Performed By: #### DALE MALDONADO, CDP #### [address] [address] County Attorney: BRITTANY WestfallCHC (RBC) [Mass/Vol]33.7 g/wAPwpklb52.4-34.8 [facility] Memorial HospitalComment on above:Performed By: #### DALE MALDONADO, CDP #### [address] [address] County Attorney: BRITTANY WestfallCV (RBC) [Entitic vol]90.6 cRTzsqyb58.6-102.9 [facility] HospitalComment on above:Performed By: #### DALE MALDONADO, CDP #### [facility] [address] [place] [address] County Attorney: Afshin Mansfield MDNRBC Automated0.0 per 100 WBCNormal0.0J.W. Ruby Memorial HospitalComment on above:Performed By: #### DALE MALDONADO, CDP #### [facility] [address] [place] [address] County Attorney: Courtney Westfall mean volume (Bld) [Entitic vol]9.9 fL Normal8.1-13.5J.W. Ruby Memorial HospitalComment on above:Performed By: #### DALE MALDONADO, CDP #### [facility] [address] [place] [address] County Attorney: Ban Westfalltemelissa (Bld) [#/Vol]250 10*3/jLOugjwd787-517 J.[facility]. [facility] Memorial HospitalComment on above:Performed By: #### DALE MALDONADO, CDP #### [facility] [address] [place] [address] County Attorney: KEIKO WestfallBC (Bld) [#/Vol]4.46 10*6/uLNormal4.21-5.77 J[facility] HospitalComment on above:Performed By: #### DALE MALDONADO, CDP #### [facility] [address] [place] [address] County Attorney: XANDER Westfall (Bld) [#/Vol]19.0 10*3/uLHigh3.5-11.3MNorthridge Hospital Medical CenterComment on above:Performed By: #### DALE MALDONADO, CDP #### [facility] [address] [place] [address] County Attorney: Afshin Mansfield MDCT HEAD WO CONTRASTon [id number] HEAD WO CONTRASTEXAMINATION: CT OF THE HEAD [...] Signed by: Anders Shepard MD 11/29/21 Final resultNormalMerLoma Linda University Medical Centerimilar 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 Similar punctate focus of presumed hemorrhage. [facility] CONSOLIDATEDEXAMINATION: CT OF THE HEAD WITHOUT CONTRAST [...] of the visualized skull or soft tissues. [facility] Anders Dunlap MD - 11/29/2021 EXAMINATION: CT [...] shift. Similar punctate focus of presumed hemorrhage. [facility] [employer] Work Phone: bON [facility] [employer] Work Phone: radiology Study observation (narrative)[facility] [employer] Work Phone: calcium, [employer] [id number] [Moles/Vol]1.07 mmol/LLow1.13-1.33[facility] Medical CenterComment on above:Performed By: #### JOEL, BMP, CDP #### [facility] [address] [place] [address] County Attorney: WOODROW Westfallalcium, Ionizedon 60-16-6716Qzkxvhr, Ionized 1.07 mmol/LLow1.13 - 1.33 mmol/LBON [facility]S [facility]ENTER OHIOInterpretation and review of laboratory resultsAbnormalBON SANFORD ABERDEEN MEDICAL CENTERMagnesiumon 56-56-9703Iiymqmmtc [Mass/Vol]2.6 mg/dLNormal1.6-2.6[facility] Medical CenterComment on above:Performed By: #### IOCAL, BMP, CDP #### [facility] [address] [place] [address] County Attorney: Gucci Westfallgnesium [Mass/Vol]2.6 mg/dL1.6 - 2.6 mg/dLBON [facility] [facility] Glucose Fingerstickon 11-29-2021 Glucose [Mass/Vol]199 mg/rKJeax63 - 110 mg/dLBON [facility] [place] Interpretation and review of laboratory resultsAbnormalBON SECOURS MARY IMMACULATE HOSPITALGlucose [Mass/Vol]211 mg/sKPeay39 - 110 mg/dLBON [facility] OHIOInterpretation and review of laboratory resultsAbnormalJOHN RANDOLPH MEDICAL CENTERGlucose [Mass/Vol]213 mg/aIOfcd37 - 110 mg/dLBON [facility] OHIOInterpretation and review of laboratory results AbnormalBON SANFORD ABERDEEN MEDICAL CENTERGlucose [Mass/Vol]195 mg/gLWvvz92 - 110 mg/dLBON [facility] OHIOInterpretation and review of laboratory resultsAbnormalJOHN RANDOLPH [facility]ICAL [facility]ENTER Glucose [Mass/Vol]205 mg/pXUzqt67 - 110 mg/dLBON [facility] [place] Interpretation and review of laboratory resultsAbnormBon Secours Health SystemBasic Metabolic Profon 11-28-2021(cont.)[facility] Rittman Medical CenterComment on above:Result Comment: Average GFR for 70 or more years old: 75 mL/min/1.73sq m Chronic Kidney Disease: <60 mL/min/1.73sq m Kidney failure: <15 mL/min/1.73sq m eGFR calculated using average adult body mass. Additional eGFR calculator available at: http://www.[employer]ee[employer]illion.[employer]/multiple_crcl_2012.htmPerformed By: #### CBC, GLYHGB, BMP #### [facility] [address] [place], [place] [id number] County Attorney: Afshin Madoff, MDAnion gap [Moles/Vol]15 mmol/LNormal9-17J.W. Ruby Memorial HospitalComment on above:Performed By: #### CBC, GLYHGB, BMP #### [facility] [address] [place] [address] County Attorney: Afshin Mansfield MDCalcium [Mass/Vol]8.1 mg/dLLow8.6-10.4J.W. Ruby Memorial HospitalComment on above:Performed By: #### CBC, GLYHGB, BMP #### [facility] [address] [place] [address] County Attorney: Afshin Mansfield MDChloride [Moles/Vol]95 mmol/ZPjm81-008KntliJ.W. Ruby Memorial HospitalComment on above:Performed By: #### CBC, GLYHGB, BMP #### [facility] [address] [place] [address] County Attorney: Afshin Mansfield MDCO2 [Moles/Vol]21 mmol/GFklsft89-16LxrlfJ.W. Ruby Memorial HospitalComment on above:Performed By: #### CBC, GLYHGB, BMP #### [facility] [address] [place] [address] County Attorney: Afshin Mansfield MDCreatinine [Mass/Vol]0.94 mg/dLNormal0.70-1.20 J.[facility]. Ruby Memorial HospitalComment on above:Performed By: #### CBC, GLYHGB, BMP #### [facility] [address] [place] [address] County Attorney: MELVIN Westfall, Amer>60Normal>60J.W. Ruby Memorial HospitalComment on above:Performed By: #### CBC, GLYHGB, BMP #### [facility] [address] [place] [address] County Attorney: MELVIN Westfall,non Amer>60Normal>60J.W. Ruby Memorial HospitalComment on above:Performed By: #### CBC, GLYHGB, BMP #### [facility] [address] [place] [address] County Attorney: Afshin Mansfield MDGlucose [Mass/Vol]230 mg/yCZpgf09-80JiaddNorthridge Hospital Medical CenterComment on above:Performed By: #### CBC, GLYHGB, BMP #### [facility] [address] [place] [address] County Attorney: JOJO Westfallotassium [Moles/Vol]4.2 mmol/LNormal3.7-5.3 J.[facility]. Ruby Memorial HospitalComment on above:Performed By: #### MARIUSZ, GLYHGB, BMP #### [facility] [address] [place] [address] County Attorney: KRISTIAN Westfallodium [Moles/Vol]131 mmol/WEtm607-425CjekgJ.W. Ruby Memorial HospitalComment on above:Performed By: #### MARIUSZ, GLYHGB, BMP #### [facility] [address] [place] [address] County Attorney: Afshin Mansfield MDUrea nitrogen [Mass/Vol]10 mg/dLNormal8-23J.W. Ruby Memorial HospitalComment on above:Performed By: #### MARIUSZ, GLYHGB, BMP #### [facility] [address] [place] [address] County Attorney: Afshin Mansfield MDBasic metabolic panelon 53-26-3350Dlruz gap [Moles/Vol]15 mmol/L9 - 17 mmol/LBON SECOURS MERCY HEALTHCalcium [Mass/Vol]8.1 mg/dLLow8.6 - 10.4 mg/dLBON SECOURS MERCY HEALTHChloride [Moles/Vol]95 mmol/LLow 98 - 107 mmol/LBON SECOURS MERCY HEALTHCO2 [Moles/Vol]21 mmol/L20 - 31 mmol/LBON SECOURS MERCY HEALTHCreatinine [Mass/Vol]0.94 mg/dL0.7 - 1.2 mg/dLBON [facility] OHIOGFR >6060 - PINF mL/minBON K[facility]'S [facility]ENTER OHIOGFR Non->6060 - PINF mL/minSENTARA VIRGINIA BEACH GENERAL HOSPITALGFR/1.73 sq M.predicted MDRD (S/P/Bld) [Vol rate/Area]MIRA [facility] OHIOComment on above:Average GFR for 70 or more years old: 75 mL/min/1.73sq m Chronic Kidney Disease: <60 mL/min/1.73sq m Kidney failure: <15 mL/min/1.73sq m eGFR calculated using average adult body mass. Additional eGFR calculator available at: http://www.[employer]/multiple_crcl_2011.htm Glucose [Mass/Vol]230 mg/lYBptx40 - 99 mg/dLBON KING[facility]S [facility] [place] Interpretation and review of laboratory resultsAbnoCommunity Health Systems Potassium [Moles/Vol]4.2 mmol/L3.7 - 5.3 mmol/LBON KING'S DAUGHTERS MEDICAL CENTER OHIOSodium [Moles/Vol]131 mmol/HUqk659 - 144 mmol/LBON KING'S DAUGHTERS MEDICAL CENTER OHIOUrea nitrogen (BldV) [Mass/Vol]10 mg/dL8 - 23 mg/dLBON SANFORD ABERDEEN MEDICAL CENTERC-Reactive Proteinon [id number] [Mass/Vol]13.7 mg/LHigh0.0-5.0J.W. Ruby Memorial HospitalComment on above:Performed By: #### JOEL, BMP, CDP #### [facility] [address] [place] [address] County Attorney: WOODROW WestfallRP [Mass/Vol]13.7 mg/LHigh0 - 5 mg/LBON KING[facility]S [facility]UGH[facility]S [facility]ENTER OHIOInterpretation and review of laboratory resultsAbnormalJOHN RANDOLPH MEDICAL CENTERCBCon 52-64-1575Mobawaymwuc distribution width (RBC) [Ratio]13.6 %Gniosf77.8-14.4J.W. Ruby Memorial HospitalComment on above:Performed By: #### CBC, GLYHGB, BMP #### [address] [address] County Attorney: Afshin Mansfield MDHematocrit (Bld) [Volume fraction]40.1 %Low 40.7-50.3MNorthridge Hospital Medical CenterComment on above:Performed By: #### CBC, GLYHGB, BMP #### [address] [address] County Attorney: Afshin Mansfield MDHemoglobin (Bld) [Mass/Vol]13.9 g/dLNormal 13.0-17.0J.W. Ruby Memorial HospitalComment on above:Performed By: #### CBC, GLYHGB, BMP #### [address] [address] County Attorney: BRITTANY WestfallCH (RBC) [Entitic mass]30.2 ywXqhfll70.2-33.5 J.[facility]. [facility] Memorial HospitalComment on above:Performed By: #### CBC, GLYHGB, BMP #### [address] [address] County Attorney: BRITTANY WestfallCHC (RBC) [Mass/Vol]34.7 g/jPFhowtq29.4-34.8 [facility]. [facility] Memorial HospitalComment on above:Performed By: #### CBC, GLYHGB, BMP #### [address] [address] County Attorney: BRITTANY WestfallCV (RBC) [Entitic vol]87.0 xTBxffms61.6-102.9 J.[facility]. Ruby Memorial HospitalComment on above:Performed By: #### CBC, GLYHGB, BMP #### [address] [address] County Attorney: Afshin Mansfield MDNRBC Automated0.0 per 100 WBCNormal0.0J.W. Ruby Memorial HospitalComment on above:Performed By: #### CBC, GLYHGB, BMP #### [facility] [address] [place] [address] County Attorney: Courtney Westfall mean volume (Bld) [Entitic vol]10.1 fL Normal8.1-13.5J.W. Ruby Memorial HospitalComment on above:Performed By: #### CBC, GLYHGB, BMP #### [facility] [address] [place] [address] County Attorney: Chilango Westfall (Bld) [#/Vol]222 10*3/jUWzjhhn898-411 J.[facility]. Ruby Memorial HospitalComment on above:Performed By: #### CBC, GLYHGB, BMP #### [facility] [address] [place] [address] County Attorney: KEIKO WestfallBC (Bld) [#/Vol]4.61 10*6/uLNormal4.21-5.77 J.[facility]. Ruby Memorial HospitalComment on above:Performed By: #### MARIUSZ, GLYHGB, BMP #### [facility] [address] [place] [address] County Attorney: Afshin Mansfield MDWBC (Bld) [#/Vol]13.5 10*3/uLHigh3.5-11.3MNorthridge Hospital Medical CenterComment on above:Performed By: #### CBC, GLYHGB, BMP #### [facility] [place] [address] County Attorney: Afshin Mansfield MDHematocrit (Bld) [Volume fraction]40.1 %Low40.7 - 50.3 %[facility]AL HOSPITALHemoglobin (Bld) [Mass/Vol]13.9 g/dL13 - 17 g/dL [facility]AL HOSPITALInterpretation and review of laboratory resultsAbnormal B[facility] MERCY HEALTHMCH (RBC) [Entitic mass]30.2 pg25.2 - 33.5 pgBON PEOPLES HOSPITALHC (RBC) [Mass/Vol]34.7 g/dL28.4 - 34.8 g/dLBON PEOPLES HOSPITALV (RBC) [Entitic vol]87.0 fL82.6 - 102.9 fLSENTARA VIRGINIA BEACH GENERAL HOSPITALNRBC Automated0.00.0 per 100 WBCBON KING'S DAUGHTERS [facility]ICAL [facility]ENTER OHIOPlatelet distribution width (Bld) [Ratio]13.6 %11.8 - 14.4 %[facility] OHIOPlatelet mean volume (Bld) [Entitic vol]10.1 fL8.1 - 13.5 fLSENTARA CAREPLEX HOSPITAL HEALTHPlatelets (Bld) [#/Vol]222 10*3/uLSENTARA VIRGINIA BEACH GENERAL HOSPITALRBC (Bld) [#/Vol]4.61 10*6/uL4.21 - 5.77 m/uLSENTARA VIRGINIA BEACH GENERAL HOSPITALWBC (Bld) [#/Vol]13.5 10*3/uLHighBON SANFORD ABERDEEN MEDICAL CENTERCBC AUTO DIFFon [id number] #0.0 103/ul Normal0.0-0.1The [facility] CenterComment on above:Performed By: #### HSTROPN, CMP, CRP #### [facility] [address] [address] [address] Sea PughBasophils/100 WBC (Bld)0.3 %Normal0.2-2.0The [facility] Comment on above:Performed By: #### HSTROPN, CMP, CRP #### [facility] [address] [address] [address] Sea Torre #0.1 103/ulNormal0.0-0.7The [facility] CenterComment on above: Performed By: #### HSTROPN, CMP, CRP #### [facility] [address] [address] [address] Sea Fordosinophils/100 WBC (Bld)0.8 %Critically low0.9-7.0The [facility]stown HospitalComment on above:Performed By: #### HSTROPN, CMP, CRP #### [facility] [address] [address] [address] Sea Fordrythrocyte distribution width (RBC) [Ratio]13.6 %Mxvmuw95.0-15.0 The [facility] CenterComment on above:Performed By: #### HSTROPN, CMP, CRP #### [facility] [address] [place] [address] Dr. Sea PughHematocrit (Bld) [Volume fraction]41.0 %Critically low42.0-54.0 The [facility] CenterComment on above:Performed By: #### HSTROPN, CMP, CRP #### [facility] [address] [place] [address] Dr. Sea PughHemoglobin (Bld) [Mass/Vol]14.0 g/zDCpqvno45.0-18.0The [facility] Galion Hospitalment on above:Performed By: #### HSTROPN, CMP, CRP #### [facility] [address] [place] [address] Dr. Sea Anguiano #0.04 10e3/ulCritically high0.00-0.03The [facility] Comment on above:Performed By: #### HSTROPN, CMP, CRP #### [facility] [address] [place] [address] Dr. Sea Anguiano %0.3 %Normal0.0-0.5The [facility] Galion Hospitalment on above: Performed By: #### HSTROPN, CMP, CRP #### [facility] [address] [place] [address] Dr. Sea NovaMPH #1.2 103/ulNormal1.2-3.8The [facility] CenterComment on above:Performed By: #### HSTROPN, CMP, CRP #### [facility] [address] [place] [address] Dr. Sea Novamphocytes/100 WBC (Bld)9.7 %Critically low20.5-60.0The López HospitalComment on above:Performed By: #### HSTROPN, CMP, CRP #### [facility] [address] [address] [address] Sea Merino DIFF REQNONormalThe [facility] CenterComment on above: Performed By: #### HSTROPN, CMP, CRP #### [facility] [address] [address] [address] Sea Steele (RBC) [Entitic mass]29.9 upXrnsal72.9-34.0The [facility] CenterComment on above:Performed By: #### HSTROPN, CMP, CRP #### [facility] [address] [address] [address] Sea Steele (RBC) [Mass/Vol]34.1 g/aPKssbvo26.9-35.2The [facility] CenterComment on above:Performed By: #### HSTROPN, CMP, CRP #### [facility] [address] [address] [address] Sea Izaguirre (RBC) [Entitic vol]87.6 oLVivirf61.0-94.0The [facility] Gal[facility] Hospitalment on above:Performed By: #### HSTROPN, CMP, CRP #### [facility] [address] [address] [address] Sea Rain #0.9 103/ulCritically high0.3-0.8ThParkview Health Comment on above:Performed By: #### HSTROPN, CMP, CRP #### [facility] [address] [place] [address] Dr. Sea Bansalocytes/100 WBC (Bld)7.4 %Normal1.7-12.0[facility] Comment on above:Performed By: #### HSTROPN, CMP, CRP #### [facility] [address] [place] [address] Dr. Sea Zapata #10.3 103/ulCritically high1.4-6.5The [facility] Comment on above:Performed By: #### HSTROPN, CMP, CRP #### [facility] [address] [place] [address] Dr. Sea Díazutrophils/100 WBC (Bld)81.5 %Critically high43.0-75.0The [facility] CenterComment on above:Performed By: #### HSTROPN, CMP, CRP #### [facility] [address] [place] [address] Dr. Sea Santacruzlet mean volume (Bld) [Entitic vol]9.8 fLNormal9.5-13.5The [facility] CenterComment on above:Performed By: #### HSTROPN, CMP, CRP #### [facility] [address] [place] [address] Dr. Sea PughPLT247 103/lzVrtsik412-409Usv [facility] CenterComment on above: Performed By: #### HSTROPN, CMP, CRP #### [facility] [address] [place] [address] Dr. Sea PughRBC4.68 106/ulCritically low4.70-6.10The [facility] CenterComment on above:Performed By: #### HSTROPN, CMP, CRP #### [facility] [address] [place] [address] Dr. Sea PughWBC12.6 103/ulCritically high4.0-11.0The [facility] CenterComment on above:Performed By: #### HSTROPN, CMP, CRP #### [facility] [address] [place] [address] Dr. Sea Robbins 55-45-6635ABR5.3 mg/dLNormal<=1.0The [facility] Comment on above:Performed By: #### HSTROPN, CMP, CRP #### [facility] [address] [place] [address] Dr. Sea PughCT HEAD WO CONon [id number] HEAD WO CONEXAMINATION: CT HEAD WO CON [...] Electronically authenticated by: VICENTA MARCH Date: 2021-11-28 00:11[facility] HEAD WO CONTRASTon [id number] HEAD WO CONTRASTEXAMINATION: CT OF THE HEAD [...] Signed by: Adalberto Escobar MD 11/28/21 Final resultNormalJ.W. Ruby Memorial HospitalRadiology Study observation (narrative)MIRA AMEZCUA [facility] [employer] Work Phone: cta HEAD NECK W CONTRASTon [id number] HEAD NECK W CONTRASTEXAMINATION: CT OF THE [...] confirmation. Critical results were called by Dr. Adablerto Escobar to Dr. Velázquez on 11/28/2021 at 06:40. Interpreted by: Adalberto Escobar MD Signed by: Adalberto Escobar MD 11/28/21 Final resultNormalJ.W. Ruby Memorial HospitalCTA head neck with contraston [id number] Study observation (narrative)[facility] [employer] Work Phone: Hemoglobin A1Con 13-69-0429Igtpmsr [Mass/Vol]186 mg/dL NormalJ.W. Ruby Memorial HospitalComment on above:Result Comment: The ADA and AACC recommend providing the estimated average glucose result to permit better patient understanding of their HBA1c result.Performed By: #### CBC, GLYHGB, BMP #### [facility] [address] [place] [address] County Attorney: Afshin Mansfield MDHbA1c (Bld) [Mass fraction]8.1 %High4.0-6.0J.W. Ruby Memorial HospitalComment on above:Performed By: #### CBC, GLYHGB, BMP #### [facility] [address] [place] [address] County Attorney: Afshin Mansfield MDHemoglobin A1con 52-40-9534Keaeccf [Mass/Vol]186 mg/dLBON Helium ST. ELIZABETH HOSPITALComment on above:The ADA and AACC recommend providing the estimated average glucose result to permit better patient understanding of their HBA1c result. HbA1c (Bld) [Mass fraction]8.1 %High4 - 6 %WALTHAM HOSPITALEsphion Interpretation and review of laboratory resultsAbnormBon Secours Health SystemLACTATE/LACTIC ACIDon [id number] [Moles/Vol]1.7 mmol/LNormal0.4-1.9The [facility] CenterComment on above:Performed By: #### DDIM #### [facility] [address] [address] [address] Sea PughLipid Panelon [id number] [Mass/Vol]122 mg/dLNINF - 200 mg/dLBON COPPER SPRINGS EAST HOSPITALBFKW ST. ELIZABETH HOSPITALComment on above: Cholesterol Guidelines: <200 Desirable 200-240 Borderline >240 Undesirable Cholesterol in HDL [Mass/Vol]34 mg/dLLow40 - PINF mg/dLBON [employer]Medical Comment on above: HDL Guidelines: <40 Undesirable 40-59 Borderline >59 Desirable Cholesterol in LDL [Mass/Vol]74 mg/dL0 - 130 mg/dLBON COPPER SPRINGS EAST HOSPITALEsphion Comment on above: LDL Guidelines: <100 Desirable 100-129 Near to/above Desirable 130-159 Borderline >159 Undesirable Direct (measured) LDL and calculated LDL are not interchangeable tests. Cholesterol.total/Cholesterol in HDL [Mass ratio]3.6 {ratio}NINF - 5BON SHARP CHULA VISTA MEDICAL CENTERNBD Nanotechnologies IncInterpretation and review of laboratory resultsAbnormCarilion Clinic St. Albans HospitalNBD Nanotechnologies IncTriglyceride [Mass/Vol]71 mg/dLNINF - 150 mg/dLBON COPPER SPRINGS EAST HOSPITALBFKW ST. ELIZABETH HOSPITALComment on above: Triglyceride Guidelines: <150 Desirable 150-199 Borderline 200-499 High >499 Very high Based on AHA Guidelines for fasting triglyceride, December 2011. VidibleLipid Profileon 60-05-7197Gsfyctaxawy [Mass/Vol]122 mg/dLNormal<200[facility] Medical CenterComment on above:Result Comment: Cholesterol Guidelines: <200 Desirable 200-240 Borderline >240 UndesirablePerformed By: #### DALE MALDONADO, CDP #### [facility] [address] [place] [address] County Attorney: WOODROW Westfallholesterol in HDL [Mass/Vol]34 mg/dLLow>40[facility] Medical CenterComment on above:Result Comment: HDL Guidelines: <40 Undesirable 40-59 Borderline >59 DesirablePerformed By: #### DALE MALDONADO, CDP #### [facility] [address] [place] [address] County Attorney: WOODROW Westfallholesterol in LDL [Mass/Vol]74 mg/dLNormal0-130 J.[facility]. Ruby Memorial HospitalComment on above:Result Comment: LDL Guidelines: <100 Desirable 100-129 Near to/above Desirable 130-159 Borderline >159 Undesirable Direct (measured) LDL and calculated LDL are not interchangeable tests.Performed By: #### DAEL MALDONADO, CDP #### [facility] [address] [place] [address] County Attorney: Kali Westfall.total/Cholesterol in HDL [Mass ratio]3.6 {ratio}Normal<5[facility] Medical CenterComment on above: Performed By: #### DALE MALDONADO, CDP #### [facility] [address] [place] [address] County Attorney: Afshin Mansfield MDTriglyceride [Mass/Vol]71 mg/dLNormal<150MerNovato Community HospitalComment on above:Result Comment: Triglyceride Guidelines: <150 Desirable 150-199 Borderline 200-499 High >499 Very high Based on AHA Guidelines for fasting triglyceride, December 2011.Performed By: #### DALE MALDONADO, CDP #### [facility] [address] [place] [address] County Attorney: LATRICIA Westfall WO CONTRASTon [id number] BRAIN W WO CONTRASTEXAMINATION: MRI OF THE [...] by: Anders Shepard MD 11/28/21 Final resultNormalMercy Mission Valley Medical Centerubacute ischemia involving the right parietal/temporal lobe with [...] mass effect, and minimal leftward midline shift. [employer] Work Phone: radiology Study observation (narrative)[employer] Phone: MRI BRAIN W WO CONTRASTOrdered By: Anders Shepard on [id number] Work Phone: Magnesiumon 79-82-6254Saecccjzc [Mass/Vol]1.5 mg/dLLow 1.6-2.6[facility] Medical CenterComment on above:Performed By: #### JOEL, BMP, CDP #### [facility] [place] [address] County Attorney: Afshin Mansfield MDInterpretation and review of laboratory results AbnormalBON BoundaryMedicalMagnesium [Mass/Vol]1.5 mg/dLLow1.6 - 2.6 mg/dL [facility] BoundaryMedicalAB[facility] BoundaryMedicalNo Panel Informationon . Findings appear most consistent [...] at 06:40. [facility] RIS CONSOLIDATEDEXAMINATION: CT OF THE HEAD WITHOUT [...] this non-dedicated study. [facility] Adalberto Green MD - 11/28/2021 EXAMINATION: CT [...] to Dr. Velázquez on 11/28/2021 at 06:40. [facility] [employer] Work Phone: No Panel InformationOrdered By: Adalberto Escobar on 10-12-4911ZKJ [facility] Work Phone: POC Glucose Fingerstickon 66-76-2537Wdbppun [Mass/Vol] 223 mg/vNCjwv08 - 110 mg/dLBON [facility] OHIOInterpretation and review of laboratory resultsAbnormCJW Medical Center Glucose [Mass/Vol]242 mg/cRCzju46 - 110 mg/dLBON [facility] [place] Interpretation and review of laboratory resultsAbnormBon Secours Health SystemGlucose [Mass/Vol]262 mg/sFBqrk77 - 110 mg/dLBON [facility] OHIOInterpretation and review of laboratory resultsAbnormalJOHN RANDOLPH MEDICAL CENTERGlucose [Mass/Vol]317 mg/rXUqrp41 - 110 mg/dLBON [facility] OHIOInterpretation and review of laboratory results AbnormalBON SANFORD ABERDEEN MEDICAL CENTERPROF 14(COMP METB)on 41-29-6966Ntlkaws [Mass/Vol]3.7 g/dLNormal3.4-5.0The [facility] CenterComment on above:Performed By: #### HSTROPN, CMP, CRP #### [facility] [address] [place] [address] Dr. Sea PughAlbumin/Globulin [Mass ratio]0.9 {ratio}NormalThe [facility] Health CenterComment on above:Performed By: #### HSTROPN, CMP, CRP #### [facility] [address] [address] [address] Sea OrourkeP [Catalytic activity/Vol]150 U/LCritically xrto11-469Iwn [facility] CenterComment on above:Performed By: #### HSTROPN, CMP, CRP #### [facility] [address] [address] [address] Sea OrourkeT [Catalytic activity/Vol]23 U/XTyjzeh82-23Zjf [facility] CenterComment on above:Performed By: #### HSTROPN, CMP, CRP #### [facility] [address] [place] [address] Dr. Sea PughAnion gap [Moles/Vol]9.8 mmol/LNormalThe [facility] CenterComment on above:Performed By: #### HSTROPN, CMP, CRP #### [facility] [address] [place] [address] Dr. Sea PughAST [Catalytic activity/Vol]20 U/SYfcmdj89-01Dgf [facility] CenterComment on above:Performed By: #### HSTROPN, CMP, CRP #### [facility] [address] [place] [address] Dr. Sea PughBilirubin [Mass/Vol]1.2 mg/dLCritically high0.2-1.0The [facility] CenterComment on above:Performed By: #### HSTROPN, CMP, CRP #### [facility] [address] [place] [address] Dr. Sea PughCalcium [Mass/Vol]8.5 mg/dLNormal8.5-10.1The [facility] Comment on above:Performed By: #### HSTROPN, CMP, CRP #### [facility] [address] [place] [address] Dr. Sea PughChloride [Moles/Vol]100 mmol/JCrlymw00-940Bld [facility] Comment on above:Performed By: #### HSTROPN, CMP, CRP #### [facility] [address] [address] [address] Sea PughCO2 [Moles/Vol]26.8 mmol/FLzigre66.0-32.0The [facility] Comment on above:Performed By: #### HSTROPN, CMP, CRP #### [facility] [address] [place] [address] Dr. Sea PughCreatinine [Mass/Vol]1.21 mg/dLNormal0.70-1.30[facility] HospitalComment on above:Performed By: #### HSTROPN, CMP, CRP #### [facility] [address] [place] [address] Dr. Osei ChangEGFR-AF CITIZEN [place]>60Normal>=60The [facility] CenterComment on above:Performed By: #### HSTROPN, CMP, CRP #### [facility] [address] [place] [address] Dr. Sea FordGFR-NON AF JYOSUXFQ84 mL/min/1.12r9Fioqdtjykw low>=60The [facility] CenterComment on above:Performed By: #### HSTROPN, CMP, CRP #### [facility] [address] [place] [address] Dr. Sea PughGlobulin (S) [Mass/Vol]3.9 g/dLNormalThe [facility] CenterComment on above:Performed By: #### HSTROPN, CMP, CRP #### [facility] [address] [place] [address] Dr. Sea PughGlucose [Mass/Vol]165 mg/dLCritically epzb83-229Poo [facility] CenterComment on above:Performed By: #### HSTROPN, CMP, CRP #### [facility] [address] [place] [address] Dr. Sea PughPotassium [Moles/Vol]3.6 mmol/LNormal3.5-5.1The [facility] Comment on above:Performed By: #### HSTROPN, CMP, CRP #### [facility] [address] [address] [address] Sea PughProtein [Mass/Vol]7.6 g/dLNormal6.4-8.2The [facility] Comment on above:Performed By: #### HSTROPN, CMP, CRP #### [facility] [address] [address] [address] Sea PughSodium [Moles/Vol]133 mmol/LCritically uob598-069Cxj [facility] CenterComment on above:Performed By: #### HSTROPN, CMP, CRP #### [facility] [address] [address] [address] Sea PughUrea nitrogen [Mass/Vol]9.0 mg/dLNormal7.0-18.0The [facility] CenterComment on above:Performed By: #### HSTROPN, CMP, CRP #### [facility] [address] [address] [address] Sea PughUrea nitrogen/Creatinine [Mass ratio]7.4 mg/mgNormalThe [facility] CenterComment on above:Performed By: #### HSTROPN, CMP, CRP #### [facility] [address] [place] [address] Dr. Sea PughProcalcitoninon 84-63-5112Jrbrznilbodfv8.10 ng/mLHigh<0.09J.W. Ruby Memorial HospitalComment on above:Result Comment: Suspected Sepsis: <0.50 [...] entered into the Change in Procalcitonin Calculator (www.pukjei-kuh-fydtbahxsw.com) to determine the patient's Mortality Risk Prognosis In healthy neonates, plasma Procalcitonin (PCT) concentrations increase gradually after , reaching peak values at about 24 hours of age then decrease to normal values below 0.5 ng/mL by 48-72 hours of age.Performed By: #### IOCAL, BMP, CDP #### [facility] [address] [id number] County Attorney: Afshin Mansfield MDInterpretation and review of laboratory results AbnormalSENTARA VIRGINIA BEACH GENERAL HOSPITALProcalcitonin0.1 ng/mLHighNINF - 0.09 ng/mLSENTARA VIRGINIA BEACH GENERAL HOSPITALComment on above: Suspected Sepsis: <0.50 ng/mL [...] entered into the Change in Procalcitonin Calculator (www.eciqzj-lrl-aigukcycyz.[employer] Index) to determine the patient's Mortality Risk Prognosis In healthy neonates, plasma Procalcitonin (PCT) concentrations increase gradually after , reaching peak values at about 24 hours of age then decrease to normal values below 0.5 ng/mL by 48-72 hours of age. SENT[facility] VIR[facility] BE[facility] GENERAL HOSPITALSED RATE WESTERGRENon 98-04-9640MSR RATE42 mm/hr Critically high<=20The [facility] CenterComment on above:Performed By: #### SEDR #### [facility] [address] [place], [place] [address] Dr. Sea Burnette, HIGH SENSITIVITYon 10-32-1658VHDDBK9.0 pg/mLNormal 4.0-76.1The López HospitalComment on above:Result Comment: CUT-OFF POINTS HAVE BEEN ESTABLISHED BASED ON THE FOURTH UNIVERSAL DEFINITIONS OF MYOCARDIAL INFARCTION. THE UPPER REFERENCE LIMIT (URL) OF TROPONIN, DEFINED THE 99TH PERCENTILE OF cTnI DISTRIBUTION IN A REFERENCE POPULATION, HAS BEEN CONFIRMED THE DECISION THRESHOLD FOR NC DIAGNOSIS.Performed By: #### HSTROPN, CMP, CRP #### [facility] [address] [address] [address] Sea Cabrera Visit (Cardiology)on 15-44-8290Qqprud-up visit Diagnoses/Problems Assessed Persistent atrial fibrillation (427.31) [...] Metabolic Panel; Status:Active - Retrospective Authorization; Requested for:[id number]; Overweight with body mass index (BMI) of 28 to 28.9 in adult Healthy Weight Tips; Status:Complete - Retrospective Authorization; Done: [id number] Some eating tips that can help you lose weight.; Status:Complete - Retrospective Authorization; Done: [id number] Persistent atrial fibrillation IO EKG Electrocardiogram- 12 Lead; Status:Complete; Done: [id number] Single vessel coronary disease Renew: Aspirin EC 81 MG Oral Tablet Delayed Release; TAKE 1 TABLET DAILY Renew: Atorvastatin Calcium 80 MG Oral Tablet (Lipitor); TAKE 1 TABLET DAILY SocHx: Former smoker Tobacco Use Screening; Status:Complete; Done: [id number] Patient Instructions Please bring all medicines, vitamins, [...] us (more content not included)...NormalUH TouchworksTobacco Screening.on 93-58-4719Aeda risk assessmenta) No falls within the last yearECU Health Beau[facility] Hospital [employer] 250 DO Work Phone: Tobacco use status CPHSb) NoMEvergreenhealth NIMBOXX 250 DO Work Phone: BNPon 28-57-9976Caljuwqbvgd peptide B (Bld) [Mass/Vol] 836.0 pg/mLNormal<=900.0The [facility] CenterComment on above:Performed By: #### HSTROPN, CMP, BNP ####[facility] [address] [place], [place] [address]YsDr. Sea Rachel AUTO DIFFon 87-01-5056WPKY #0.1 103/ulNormal0.0-0.1The [facility] CenterComment on above:Performed By: #### DDIM #### [facility] [address] [address] [address] Sea Cornejophils/100 WBC (Bld)0.5 %Normal0.2-2.0The [facility] Comment on above:Performed By: #### DDIM #### [facility] [address] [address] [address] Yilan ChangEO #0.3 103/ulNormal0.0-0.7The [facility] CenterComment on above: Performed By: #### DDIM #### [facility] [address] [place] [address] Dr. Sea Fordosinophils/100 WBC (Bld)3.3 %Normal0.9-7.0[facility] Comment on above:Performed By: #### DDIM #### [facility] [address] [place] [address] Dr. Sea Fordrythrocyte distribution width (RBC) [Ratio]13.7 %Dmjrrm70.0-15.0 [facility] HospitalComment on above:Performed By: #### DDIM #### [facility] [address] [place] [address] Dr. Sea PughHematocrit (Bld) [Volume fraction]41.3 %Critically low42.0-54.0 [facility] HospitalComment on above:Performed By: #### DDIM #### [facility] [address] [place] [address] Dr. Sea PughHemoglobin (Bld) [Mass/Vol]14.0 g/nZLfaocj99.0-18.0The [facility] CenterComment on above:Performed By: #### DDIM #### [facility] [address] [place] [address] Dr. Sea Anguiano #0.04 10e3/ulCritically high0.00-0.03The [facility] Comment on above:Performed By: #### DDIM #### [facility] [address] [place] [address] Dr. Sea Anguiano %0.4 %Normal0.0-0.5The [facility] CenterComment on above: Performed By: #### DDIM #### [facility] [address] [place] [address] Dr. Sea PrinceH #1.3 103/ulNormal1.2-3.8The [facility] CenterComment on above:Performed By: #### DDIM #### [facility] [address] [place] [address] Dr. Sea Novamphocytes/100 WBC (Bld)13.1 %Critically low20.5-60.0The [facility] CenterComment on above:Performed By: #### DDIM #### [facility] [address] [place] [address] Dr. Sea SoniUAL DIFF REQNONormalThe [facility] CenterComment on above: Performed By: #### DDIM #### [facility] [address] [place] [address] Dr. Sea Steele (RBC) [Entitic mass]30.2 eqZdudqs42.9-34.0The [facility] CenterComment on above:Performed By: #### DDIM #### [facility] [address] [place] [address] Dr. Sea Steele (RBC) [Mass/Vol]33.9 g/zIDvssql04.9-35.2The [facility] CenterComment on above:Performed By: #### DDIM #### [facility] [address] [place] [address] Dr. Sae Steele (RBC) [Entitic vol]89.0 nPBeqiuj81.0-94.0The [facility] CenterComment on above:Performed By: #### DDIM #### [facility] [address] [place] [address] Dr. Sea Rain #1.0 103/ulCritically high0.3-0.8ThParkview Health Comment on above:Performed By: #### DDIM #### [facility] [address] [place] [address] Dr. Sea Bansalocytes/100 WBC (Bld)9.8 %Normal1.7-12.0[facility] Comment on above:Performed By: #### DDIM #### [facility] [address] [place] [address] Dr. Sea Zapata #7.1 103/ulCritically high1.4-6.5The [facility] Comment on above:Performed By: #### DDIM #### [facility] [address] [place] [address] Dr. Sea PughNeutrophils/100 WBC (Bld)72.9 %Akebzy48.0-75.0The [facility] CenterComment on above:Performed By: #### DDIM #### [facility] [address] [place] [address] Dr. Sea PughPlatelet mean volume (Bld) [Entitic vol]9.7 fLNormal9.5-13.5The [facility] CenterComment on above:Performed By: #### DDIM #### [facility] [address] [place] [address] Dr. Sea PughPLT247 103/ozZmancq595-209Yig [facility] CenterComment on above: Performed By: #### DDIM #### [facility] [address] [place] [address] Dr. Sea PughRBC4.64 106/ulCritically low4.70-6.10The [facility] CenterComment on above:Performed By: #### DDIM #### [facility] [address] [place] [address] Dr. Sea PughWBC9.8 103/ulNormal4.0-11.0The [facility] CenterComment on above: Performed By: #### DDIM #### [facility] [address] [place] [address] Dr. Sea Schultz CHEST WO W CONon 78-79-8760MJL CHEST WO W CONCTA CHEST WITH IV [...] The subdiaphragmatic abdominal organs included in the kunow-at-bedn do not demonstrate any acute abnormality. IMPRESSION: 1. Normal-appearing thoracic aorta. 2. No CT evidence for acute pulmonary embolus. 3. Otherwise unremarkable CT scan of the chest for acute pathology. Electronically authenticated by: OBI MIDDLETON Date: 2021-09-22 19:33NoKettering Health Behavioral Medical CenterCovid-19 PCR ([facility] SYSTEMTB)on 74-07-1165WRMO-CoV-2 (COVID-19) RNA PHOENIX+probe Ql (Unsp spec)Not detectedNormalNOT DETECTEDThe [facility] Comment on above:Result Comment: When diagnostic testing [...] for this test is supported by the [place] of Health and Human Service's declaration that [...] By: #### HSTROPN, CMP, CRP #### [facility] [address] [address] [address] Sea Hodge 14(COMP METB)on 54-23-1058Hzhfvpl [Mass/Vol]3.6 g/dLNormal 3.4-5.0The [facility] CenterComment on above:Performed By: #### HSTROPN, CMP, BNP ####[facility] [address] [address]Dr. Sea PughAlbumin/Globulin [Mass ratio]0.9 {ratio}NormalMarietta Memorial Hospital Comment on above:Performed By: #### HSTROPN, CMP, BNP ####[facility] [address] [address]Dr. Sea ChangALP [Catalytic activity/Vol]143 U/LCritically ezds67-409Ltq [facility] CenterComment on above: Performed By: #### HSTROPN, CMP, BNP ####[facility] [address] [address]Dr. Sea ChangALT [Catalytic activity/Vol]28 U/L Treuui46-64Sbe [facility] CenterComment on above:Performed By: #### HSTROPN, CMP, BNP ####[facility] [address] [address]Dr. Sea ChangAnion gap [Moles/Vol]12.6 mmol/LNormalMarietta Memorial Hospital Comment on above:Performed By: #### HSTROPN, CMP, BNP ####[facility] [address] [address]Dr. Yilan ChangAST [Catalytic activity/Vol]18 U/YGsotxo19-02Xms [facility] CenterComment on above:Performed By: #### HSTROPN, CMP, BNP ####[facility] [address] [address]Dr. Sea ChangBilirubin [Mass/Vol]1.1 mg/dLCritically high0.2-1.0The [facility] CenterComment on above:Performed By: #### HSTROPN, CMP, BNP ####[facility] [address] [address]Dr. Yilan ChangCalcium [Mass/Vol]8.7 mg/dLNormal8.5-10.1The [facility] CenterComment on above:Performed By: #### HSTROPN, CMP, BNP ####[facility] [address] [address]Dr. Yilan Pugh Chloride [Moles/Vol]100 mmol/VVewypp80-632Qvh [facility] CenterComment on above: Performed By: #### HSTROPN, CMP, BNP ####[facility] [address] [address]Dr. Yilan ChangCO2 [Moles/Vol]27.1 mmol/LNormal 21.0-32.0The [facility] CenterComment on above:Performed By: #### HSTROPN, CMP, BNP ####[facility] [address] [address]Dr. Yilan ChangCreatinine [Mass/Vol]1.15 mg/dLNormal0.70-1.30The [facility] Comment on above:Performed By: #### HSTROPN, CMP, BNP ####[facility] [address] [address]Dr. Yilan ChangEGFR-AF CITIZEN [place]>60Normal>=60The [facility] CenterComment on above:Performed By: #### HSTROPN, CMP, BNP ####[facility] [address] [address]Dr. Yilan ChangEGFR-NON AF CITIZEN [place]>60Normal>=60The [facility] Comment on above:Performed By: #### HSTROPN, CMP, BNP ####[facility] [address] [address]Dr. Yilan ChangGlobulin (S) [Mass/Vol]3.9 g/dLNormalThe [facility] CenterComment on above:Performed By: #### LILIANTROPN, CMP, BNP ####[facility] [address] [address]Dr. Yilan ChangGlucose [Mass/Vol]214 mg/dLCritically gwbl00-674Bna [facility] CenterComment on above:Performed By: #### HSTROPN, CMP, BNP ####[facility] [address] [address]Dr. Yilan ChangPotassium [Moles/Vol]3.7 mmol/LNormal3.5-5.1The [facility] Comment on above:Performed By: #### LILIANTROPN CMP, BNP ####[facility] [address] [address]Dr. Yilan ChangProtein [Mass/Vol]7.5 g/dLNormal6.4-8.2The [facility] CenterComment on above:Performed By: #### LILIANTROPN, CMP, BNP ####[facility] [address] [place], [place] [address]Dr. Yilan ChangSodium [Moles/Vol]136 mmol/LNormal 136-145The [facility] CenterComcorewell health butterworth hospital on above:Performed By: #### LILIANTROPN, CMP, BNP ####[facility] [address] [address]Dr. Yilan ChangUrea nitrogen [Mass/Vol]13.0 mg/dLNormal7.0-18.0The [facility] Comment on above:Performed By: #### HSTROPN, CMP, BNP ####[facility] [address] [address]Dr. Yilan ChangUrea nitrogen/Creatinine [Mass ratio]11.3 mg/mgNoKettering Health Behavioral Medical CenterComcorewell health butterworth hospital on above:Performed By: #### HSTROPN, CMP, BNP ####[facility] [address] [place], [place] [address]Dr. Yilan ChangPROTIMEon 88-34-8241EQR Coag (PPP) [Relative time]1.07 {INR}NormalThe López HospitalComment on above: Performed By: #### PT, PTT ####[facility] [address] [address]Dr. Sea PughINR GUIDELINESSEE BELOWNoKettering Health Behavioral Medical CenterComment on above:Result Comment: DESIRED INR: 2.0 - 3.0 CONDITIONS NOT LISTED BELOW 2.5 - 3.5 FOR PROSTHETIC HEART VALVE REPLACEMENT 2.5 - 3.5 RECURRENT THROMBOSISPerformed By: #### PT, PTT ####[facility] [address] [address]Dr. Sea KeatonPT Coag (PPP) [Time]11.5 sNormal9.0-11.6The [facility] on above:Performed By: #### PT, PTT ####[facility] [address] [address]Dr. Sea PughPTTon 00-42-2190fQIX Coag (Bld) [Time]30.2 jWlzqpv94.3-36.2 The [facility] CenterComcorewell health butterworth hospital on above:Performed By: #### PT, PTT ####[facility] [address] [address]Dr. Sea Pugh TROPONIN, HIGH SENSITIVITYon 86-76-3143RPFIUU2.5 pg/mLNormal4.0-76.1The [facility] on above:Result Comment: CUT-OFF POINTS HAVE BEEN ESTABLISHED BASED ON THE FOURTH UNIVERSAL DEFINITIONS OF MYOCARDIAL INFARCTION. THE UPPER REFERENCE LIMIT (URL) OF TROPONIN, DEFINED THE 99TH PERCENTILE OF cTnI DISTRIBUTION IN A REFERENCE POPULATION, HAS BEEN CONFIRMED THE DECISION THRESHOLD FOR NC DIAGNOSIS.Performed By: #### HSTROPN, CMP, BNP ####[facility] [address] [address]Dr. Sea PughXR CHEST 1 Von 60-73-6928ZB CHEST 1 VEXAM: XR CHEST 1 V [...] Electronically authenticated by: FARIBA MCCLURE Date: 2021-09-22 19:39[facility]CT [facility] CONon [id number] HEAD WO CONCT head without contrast CLINICAL: [...] Electronically authenticated by: KENY GREENE Date: 2021-08-26 09:53[facility] HospitalCT ORBIT WO CONon [id number] ORBIT WO CONCT cervical spine CLINICAL: HEADACHE [...] Electronically authenticated by: KENY GREENE Date: 2021-08-26 10:03[facility] W MANUAL DIFFon 72-46-2723RFLTPLVR LYMPH #NormalThe Pitt[facility] HospitalComment on above:Performed By: #### DDIM #### [facility] [address] [place] [address] Dr. Sea PughATYPICAL LYMPH %NormalMarietta Memorial HospitalComment on above: Performed By: #### DDIM #### [facility] [address] [place] [address] Dr. Sea Li #Normal0.0-0.3The [facility] CenterComment on above: Performed By: #### DDIM #### [facility] [address] [place] [address] Dr. Sea Li %Normal0-5The [facility] CenterComment on above:Performed By: #### DDIM #### [facility] [address] [place] [address] Dr. Sea Daniels #0.00 103/ulNormal0.00-0.10The [facility] CenterComment on above:Performed By: #### DDIM #### [facility] [address] [place] [address] Dr. Sea Daniels %0.0 %Critically low0.2-2.0The [facility] on above:Performed By: #### DDIM #### [facility] [address] [place] [address] Dr. Sea Estes #NormalThe [facility] CenterComment on above:Performed By: #### DDIM #### [facility] [address] [place] [address] Dr. Sea Estes %NormalMarietta Memorial HospitalComment on above:Performed By: #### DDIM #### [facility] [address] [place] [address] Dr. Sea JohnsonRRECTED WBCNormal4.0-11.0The [facility] CenterComcorewell health butterworth hospital on above: Performed By: #### DDIM #### [facility] [address] [place] [address] Dr. Yilan ChangEOS #0.21 103/ulNormal0.00-0.70The [facility] CenterComment on above:Performed By: #### DDIM #### [facility] [address] [place] [address] Dr. Sea Kidd%2.0 %Normal0.9-7.0The [facility] CenterComment on above: Performed By: #### DDIM #### [facility] [address] [place] [address] Dr. Sea HenryT41.3 %Critically low42.0-54.0The [facility] CenterComment on above:Performed By: #### DDIM #### [facility] [address] [place] [address] Dr. Sea PughHGB14.1 g/beEkeugu81.0-18.0The [facility] CenterComment on above: Performed By: #### DDIM #### [facility] [address] [place] [address] Dr. Sea Alexandra #1.14 103/ulCritically low1.20-3.80The [facility] Comment on above:Performed By: #### DDIM #### [facility] [address] [place] [address] Dr. Sea Alexandra%11.0 %Critically low20.5-60.0The [facility] on above:Performed By: #### DDIM #### [facility] [address] [place] [address] Dr. Sea SteeleH30.9 kmWuhqeu10.9-34.0The [facility] CenterComment on above: Performed By: #### DDIM #### [facility] [address] [place] [address] Dr. Sea SteeleHC34.1 g/myRabhhu95.9-35.2The [facility] CenterComment on above:Performed By: #### DDIM #### [facility] [address] [place] [address] Dr. Sea SteeleV90.4 wBKzwyhy87.0-94.0The [facility] HospitalComment on above: Performed By: #### DDIM #### [facility] [address] [address] [address] Sea NovoaOCYTE #NormalThe [facility] CenterComment on above: Performed By: #### DDIM #### [facility] [address] [address] [address] Sea NovoaOCYTE %NormalThe [facility] HospitalComment on above: Performed By: #### DDIM #### [facility] [address] [address] [address] Sea Betancourt#1.98 103/ulCritically high0.30-0.80The [facility] on above:Performed By: #### DDIM #### [facility] [address] [address] [address] Sea Betancourt%19.0 %Critically high1.7-12.0The [facility] CenterComment on above:Performed By: #### DDIM #### [facility] [address] [address] [address] Sea PughMPV9.7 fLNormal9.5-13.5The [facility] CenterComment on above: Performed By: #### DDIM #### [facility] [address] [address] [address] Sea Medina #NormalMarietta Memorial HospitalComment on above:Performed By: #### DDIM #### [facility] [address] [address] [address] Sea CifuentesOCYTE %NormalMarietta Memorial HospitalComment on above:Performed By: #### DDIM #### [facility] [address] [address] [address] Sea PughNRBCNormalThParkview HealthComment on above:Performed By: #### DDIM #### [facility] [facility] [address] [address] [address] Sea DiezT259 103/euHejkao793-363Ioo [facility] CenterComment on above: Performed By: #### DDIM #### [facility] [address] [address] [address] Sea VázquezC4.57 106/ulCritically low4.70-6.10The [facility] CenterComment on above:Performed By: #### DDIM #### [facility] [address] [address] [address] Sea PughRDW13.4 %Ugtcnr03.0-15.0The [facility] CenterComment on above: Performed By: #### DDIM #### [facility] [address] [address] [address] Sea Treadwell #7.07 103/ulCritically high1.40-6.50The [facility] Comment on above:Performed By: #### DDIM #### [facility] [address] [place] [address] Dr. Sea Treadwell %68.0 %Ztwwsb19.0-75.0The [facility] CenterComment on above: Performed By: #### DDIM #### [facility] [address] [place] [address] Dr. Sea PughWBC10.4 103/ulNormal4.0-11.0The [facility] CenterComment on above:Performed By: #### DDIM #### [facility] [address] [place] [address] Dr. Sea PughPROF CHEM 8 (BAS METB)on 45-26-8091Aiqic gap [Moles/Vol]13.5 mmol/LNormalThe [facility] CenterComment on above:Performed By: #### HSTROPN, CMP, CRP #### [facility] [address] [place] [address] Dr. Sea PughCalcium [Mass/Vol]8.7 mg/dLNormal8.5-10.1The [facility] Comment on above:Performed By: #### HSTROPN, CMP, CRP #### [facility] [address] [place] [address] Dr. Sea PughChloride [Moles/Vol]97 mmol/LCritically bkq76-211Ppz [facility] CenterComment on above:Performed By: #### HSTROPN, CMP, CRP #### [facility] [address] [address] [address] Sea PughCO2 [Moles/Vol]24.2 mmol/RPnfjin20.0-32.0[facility] Comment on above:Performed By: #### HSTROPN, CMP, CRP #### [facility] [address] [address] [address] Sea PughCreatinine [Mass/Vol]1.26 mg/dLNormal0.70-1.30The [facility] CenterComment on above:Performed By: #### HSTROPN, CMP, CRP #### [facility] [address] [address] [address] Osei ChangEGFR-AF CITIZEN OF [place]>60Normal>=60The [facility] CenterComment on above:Performed By: #### HSTROPN, CMP, CRP #### [facility] [address] [place] [address] Dr. Sea FordGFR-NON AF HANIEZNR33 mL/min/1.82x3Uxcxppyrdu low>=60The [facility] Hospitalment on above:Performed By: #### HSTROPN, CMP, CRP #### [facility] [address] [place] [address] Dr. Sea PughGlucose [Mass/Vol]201 mg/dLCritically babu50-879Lmi [facility] CenterComment on above:Performed By: #### HSTROPN, CMP, CRP #### [facility] [address] [place] [address] Dr. Sea PughPotassium [Moles/Vol]3.7 mmol/LNormal3.5-5.1The [facility] Comment on above:Performed By: #### HSTROPN, CMP, CRP #### [facility] [address] [place] [address] Dr. Sea PughSodium [Moles/Vol]131 mmol/LCritically uyt298-884Qzf [facility] CenterComment on above:Performed By: #### HSTROPN, CMP, CRP #### [facility] [address] [place], [place] [address] Dr. Sea PughUrea nitrogen [Mass/Vol]21.0 mg/dLCritically high7.0-18.0The [facility] CenterComcorewell health [facility] on above:Performed By: #### HSTROPN, CMP, CRP #### [facility] [address] [place], [place] [address] [address]. Sea PughUrea nitrogen/Creatinine [Mass ratio]16.7 mg/mgNoKettering Health Behavioral Medical CenterComment on above:Performed By: #### HSTROPN, CMP, CRP #### [facility] [address] [place], [place] [address] Dr. Sea PughXR CHEST 2 Von 06-60-4290JG CHEST 2 VEXAM: XR CHEST 2 V [...] Electronically authenticated by: VICENTA MARCH Date: 2021-08-22 05:46[facility]XR SINUSES 3 VIEWS OR GREATERon 18-73-3651IG SINUSES 3 VIEWS OR GREATERXR SINUSES 3 [...] Electronically authenticated by: LOULOU DAVIS Date: 2021-08-22 06:31NoKettering Health Behavioral Medical CenterTobacco Screening.on 86-48-1828Ehphz depression screening assessmentMercy [facility] [address] DO Work Phone: Fall risk assessmenta) No falls within the last year -[facility] 250 DO Work Phone: Tobacco use status CPHSb) NoMEvergreenhealth [facility] [place] [address] DO Work Phone: Vital Signs Date TimeVital SignValuePerforming KbrdjdrjuQgtxdufi79-00-0920 16:38-0400Body mgpilc727.4 cmLwilder CromwellAd[facility]09-03-2025 16:38-0400Body mass index (BMI) [Ratio]24.01 kg/q5Tekndsj [facility]09-03-2025 16:38-0400Body xhdpsu01.56 [facility]-2025 16:38-0400Diastolic blood mm[Hg]Kristin [facility]09-03-2025 16:38-0400Heart rate64 /minBlanchard Valley Health Systemguille [facility] 11-23-2024 16:38-0400Systolic blood tbgxolmz806 mm[Hg]Kristin [facility]08-20-2025 14:25-0400Body xobzbm321.4 [facility]-20-2025 14:25-0400Body mass index (BMI) [Ratio]24.46 kg/w8MkiwvaPiedmont [facility]dale08-20-2025 14:25-0400Body .1 kgPiedmont [facility]08-20-2025 14:25-0400Diastolic blood ycjajear10 mm[Hg] [facility]08-20-2025 14:25-0400Heart rate61 /minPiedmont [facility]08-20-2025 14:25-0400Systolic blood sjykcwgp611 mm[Hg]Cldye [facility]08-14-2025 13:40-0400Body ecebvn019.4 cmMraciano Hi DPM Work Phone: [facility] LouisAsbkauxpix63-88-9814 13:40-0400Body mass index (BMI) [Ratio]27.97 kg/z7ScotsvtlMarciano Hi DPM Work Phone: [facility] LouisYmzvrggapl60-40-5042 13:40-0400Body .16 kgTootiemedina Hi DPM Work Phone: [facility] LouisNntizawfkn48-09-9481 13:40-0400Respiratory rate16 /minMarciano Hi DPM Work Phone: [facility] LouisBzcpjnnpqj97-81-0614 14:28-0400Body nfpste987.4 cmVeronica Liz MD Work Phone: 1(958)[address]08-06-2025 14:28-0400 Body mass index (BMI) [Ratio]24.28 kg/x7XztmbkcVeronica Liz MD Work Phone: 1(462)41407 [address]08-06-2025 14:28-0400 Body dacltq30.46 kgVeronica Liz MD Work Phone: 1(799)[address]07 [address]08-06-2025 14:28-0400 Diastolic blood ngxovxfu55 mm[Hg]Veronica Liz MD Work Phone: 1(452)[address]08-06-2025 14:28-0400 Heart rate62 /Brody Liz MD Work Phone: 1(481)[address]08-06-2025 14:28-0400 Systolic blood fgoywpmr187 mm[Hg]Veronica Liz MD Work Phone: 1(986)[address]07 [address]03-06-2025 13:28-0500 Body .4 cmMarciano Hi DPM Work Phone: [facility] LouisTvtcfzvyqq08-61-0948 13:28-0500Body mass index (BMI) [Ratio]27.97 kg/k7Hefuaghq Brown DPM Work Phone: [facility] LouisVxrzmjxrir02-03-9230 13:28-0500Body lmjeso56.16 kgNicpancho Brown DPM Work Phone: [facility] LouisZnaguxkhos23-60-8409 13:28-0500Respiratory rate18 /minTootiemedina Hi DPM Work Phone: [facility] LouisXrebtikmdr75-04-4900 13:45-0500Body .4 cmVeronica Liz MD Work Phone: 1(064)420-[address] [place], [place] [address]8701-29-2025 13:45-0500 Body mass index (BMI) [Ratio]26.25 kg/d0WyzqmubVeronica Liz MD Work Phone: 1(824)41407 [address]01-29-2025 13:45-0500 Body sfxoqg65.27 kgVeronica Liz MD Work Phone: 1(634)[address]07 [address]01-29-2025 13:45-0500 Diastolic blood uwtfpuhm87 mm[Hg]Veronica Liz MD Work Phone: 1(737)[address]07 [address]01-29-2025 13:45-0500 Heart rate61 /Brody Liz MD Work Phone: 1(427)[address] [place], [place] [address]01-29-2025 13:45-0500 Systolic blood gifzjvpf96 mm[Hg]Veronica Liz MD Work Phone: 1(900)41407 [address]12-26-2024 11:51-0500 Body .4 cmFlorentinopancho Hi DPM Work Phone: [facility] LouisNmqyhabgjj80-15-3596 11:51-0500Body mass index (BMI) [Ratio]27.97 kg/b8Zrqkpjyx Brown DPM Work Phone: [facility] LouisGzbdeinzmy49-12-0653 11:51-0500Body zrtrta13.16 kgNicpancho Brown DPM Work Phone: [facility] LouisJpyxadxwlt75-28-6607 11:51-0500Respiratory rate18 /minMarciano Hi DPM Work Phone: [facility] LouisTarzwlyxld26-21-3401 14:56-0500Body .4 cmVeronica Liz MD Work Phone: [phone]11-07-2024 14:56-0500 Body mass index (BMI) [Ratio]27.31 kg/m8VjwautqVeronica Liz MD Work Phone: 1(913)41407 [address]11-07-2024 14:56-0500 Body ynatoj63.89 kgVeronica Liz MD Work Phone: 1(834)41407 [address]11-07-2024 14:56-0500 Diastolic blood ywzkxajt05 mm[Hg]Veronica Liz MD Work Phone: 1(133)[address] [place], [place] [address]408711-07-2024 14:56-0500 Heart rate55 /Brody Liz MD Work Phone: 1(208)[address] [place], [place] [address]40[address]11-07-2024 14:56-0500 Systolic blood unmsejrm379 mm[Hg]Veronica Liz MD Work Phone: 1(332)[address] [place], [place] [address]10-17-2024 13:51-0400 Body busipd645.4 cmMarciano Hi DPM Work Phone: [facility] LouisIkmrfubpje41-90-7866 13:51-0400Body mass index (BMI) [Ratio]27.97 kg/p0MgrcbiqjMarciano Hi DPM Work Phone: [facility] LouisGtirogzmgl23-87-8952 13:51-0400Body xvumka78.16 kgMarciano Hi DPM Work Phone: [facility] LouisPwdpbjupql85-08-4280 13:51-0400Diastolic blood mm[Hg]Marciano Hi DPM Work Phone: 1(442)356-[address] [place], [place] [address]Fwspkdxezf90-54-4757 13:51-0400Heart rate81 /min Marciano Hi DPM Work Phone: [facility] LouisRnpjdulxnq60-63-2540 13:51-0400Systolic blood ttolxxeb252 mm[Hg]Marciano Hi DPM Work Phone: [facility] LouisUussnlhyws98-44-7240 15:50-0400Diastolic blood ejarwbwj40 mm[Hg]Veronica Liz MD Work Phone: 1(090)[address]05-09-2024 15:50-0400 Systolic blood rzhxeelz162 mm[Hg]Veronica Liz MD Work Phone: 1(990)41407 [address]05-09-2024 14:47-0400 Body .4 cmVeronica Liz MD Work Phone: 1(517)[address]05-09-2024 14:47-0400 Body mass index (BMI) [Ratio]28.1 kg/k8CmgvnqnVeronica Liz MD Work Phone: 1(065)414[address]05-09-2024 14:47-0400 Body etzafb43.62 kgVeronica Liz MD Work Phone: 1(394)[address]05-09-2024 14:47-0400 Heart rate96 /minVeronica Liz MD Work Phone: 1(363)[address]11-09-2023 14:35-0500 Body ucdpla496.4 cmVeronica Liz MD Work Phone: 1(664)[address]11-09-2023 14:35-0500 Body mass index (BMI) [Ratio]28.89 kg/k1RzdorxeVeronica Liz MD Work Phone: 1(572)[address]11-09-2023 14:35-0500 Body exyzli10.34 kgVeronica Liz MD Work Phone: 1(161)[address]11-09-2023 14:35-0500 Diastolic blood hmpzqhce18 mm[Hg]Veronica Liz MD Work Phone: [facility]11-09-2023 14:35-0500 Heart rate62 /minVeronica Liz MD Work Phone: [facility]11-09-2023 14:35-0500 Systolic blood hcnarfhf117 mm[Hg]Veronica Liz MD Work Phone: [facility]05-17-2023 13:15-0400 Body rkwkru823.42 cmCharles P House Work Phone: mp176-1297OV-Nwiss [place] [facility] [place] [address] [place] Work Phone: 1(288)561-769-245204-31 13:15-0400Body mass index (BMI) [Ratio] 28.23 kg/u4Xvhprxr P House Work Phone: mp819-9302LC-Xfeew [place] [facility] [place] [address] [place] Work Phone: 1([phone] 13:15-0400Body surface area Derived from formula2.21 y0Eyedxoj P House Work Phone: mp234-9641XB-Rdljr [facility] [place] [address] [place] Work Phone: 1(405)025-985-276486-61 13:15-0400Body qfyydr88.07 kgCharles P House Work Phone: mp516-9095FI-Eoglc [facility] [address] [place] Work Phone: 1(722) 545-827905-17-2023 13:15-0400Diastolic blood dowupuio59 mm[Hg] Valente P House Work Phone: mp098-6509YB-Crnkz [place] [facility] [address] [place] Work Phone: 1(380)981-608-907297-52073484-11-9693 13:15-0400Heart rate57 /minCharles P House Work Phone: mp773-5225RF-Iwdjr [place] [facility] [address] [place] Work Phone: 1(795) 476-206305-17-2023 13:15-0400Systolic blood dijpuzer182 mm[Hg] Valente P House Work Phone: mp974-5092ZK-Aursv [place] [facility] [place] [address] [place] Work Phone: 1(483)526-317-606509-54286170-88-6648 09:22-0400Body fvishb344.42 cmCharles P House Work Phone: mp707-7252IU-Qsmji [place] [facility] [address] DO Work Phone: 1(559) 692-903003-17-2023 09:22-0400Body mass index (BMI) [Ratio] 27.84 kg/h8Zfzwamk P House Work Phone: mp824-1326XT-Jpozb [place] [facility] [address] DO Work Phone: 1(236) 652-789503-17-2023 09:22-0400Body surface area Derived from formula2.2 a2Zztyyxw P House Work Phone: mp625-6261ZS-Eejyk [facility] [address] DO Work Phone: 1(417)[phone] 09:22-0400Body clrfyq23.71 kgCharles P House Work Phone: mp978-8837YQ-Fyfph [place] [facility] [address] DO Work Phone: 1(554) 305-333203-17-2023 09:22-0400Diastolic blood solhlbph54 mm[Hg] Valente P House Work Phone: mp923-5311QF-Dcedf [facility] [address] DO Work Phone: 1(665)[phone]741 09:22-0400Heart rate80 /minCharles P House Work Phone: mp409-1369BN-Pcyvg [facility] [address] DO Work Phone: 1(875) 477-604603-17-2023 09:22-0400Systolic blood vfultzit214 mm[Hg] Valente P House Work Phone: mp255-4373TR-Dthnf [facility] [address] DO Work Phone: 1(472) 894-261003-16-2023 13:14-0400Body zohonc937.42 cmCharles P House Work Phone: mp059-8922VK-Bhmvr [facility] [address] DO Work Phone: 1(795) 251-790803-16-2023 13:14-0400Body mass index (BMI) [Ratio] 27.84 kg/p6Asheure P House Work Phone: mp851-6865UK-Ttbeo [facility] [address] DO Work Phone: 1(598) 682-335403-16-2023 13:14-0400Body surface area Derived from formula2.2 s0Bohegwt P House Work Phone: 1(996) 972-4538053-6379KA-Laspa [facility] [address] DO Work Phone: 1(831) 561-485903-16-2023 13:14-0400Body .71 kgCharmarianela P House Work Phone: 1(693) 778-6613309-9073ML-Uktxq [facility] [address] DO Work Phone: 1(574) 714-235403-16-2023 13:14-0400Diastolic blood pkxziigz25 mm[Hg] Valente Ortega House Work Phone: 1(717) 982-7754002-0424KB-Bcrhc [place] [facility] [address] DO Work Phone: 1(426) 376-117303-16-2023 13:14-0400Heart ycyk696 /minCharles P House Work Phone: 1(687) 281-7269327-8857SN-Fhyur [place] [facility] [address] DO Work Phone: 1(208) 967-490003-16-2023 13:14-0400Systolic blood fbfprokf449 mm[Hg] Valente P House Work Phone: 1(883) 865-4591439-7851EF-Sblxb [place] [facility] [address] DO Work Phone: 1(806) 308-307209-14-2022 10:00-0400Diastolic blood wkmtojdn94 mm[Hg] Neal Velázquez MD Work Phone: bon [facility] DERSST69-20-8082 10:00-0400Heart rate82 /minPaul Eber LEW Work Phone: bon [facility] QVDPTM27-69-1555 10:00-0400 Respiratory rate18 /minPaul Eber LEW Work Phone: [facility]09-14-2022 10:00-4426BbN0% (BldA) [Mass fraction]95 %Neal Velázquez MD Work Phone: [facility]09-14-2022 10:00-0400Systolic blood hmqdormi092 mm[Hg]Neal Velázquez MD Work Phone: [facility]09-14-2022 08:00-0400Body wdgcogbifea55.9 [degF]Neal Velázquez MD Work Phone: [facility]09-08-2022 03:30-0400Body .4 cmPdamián Velázquez MD Work Phone: [facility]09-08-2022 03:30-0400Body mass index (BMI) [Ratio]27.34 kg/m2Paul Ebre LEW Work Phone: [facility]09-08-2022 03:30-0400Body exrrjj11 kgPaul Eber LEW Work Phone: [facility]09-07-2022 14:19-0400Diastolic blood bbprawar01 mm[Hg]Valente P House Work Phone: mp727-6287OQ-Tficz [place] [employer] 250 DO Work Phone: 1(482) 137-617209-07-2022 14:19-0400Systolic blood xuwdflds220 mm[Hg] Valente P House Work Phone: mp518-8200ZC-Cypnu [place] [employer] [address] DO Work Phone: 1(786) 272-412109-07-2022 13:40-0400Body phhrib051.42 cmCharles P House Work Phone: mp473-9289BO-Pabag [place] [facility] [address] DO Work Phone: 1(984) [phone] 13:40-0400Body mass index (BMI) [Ratio] 28.63 kg/q0Dtqwjdl P House Work Phone: mp887-4791GU-Owszq [place] [employer] [address] DO Work Phone: 1(696) 506-329109-07-2022 13:40-0400Body surface area Derived from formula2.23 q0Woglozt P House Work Phone: mp367-0021FW-Qtbja [place] [employer] [address] DO Work Phone: 1(447) 293-800009-07-2022 13:40-0400Body ioovnt72.43 kgCharles P House Work Phone: mp793-4975MO-Zeswv [place] [employer] [address] DO Work Phone: 1(894) 530-710009-07-2022 13:40-0400Diastolic blood jykeylmk09 mm[Hg] Valente P House Work Phone: mp042-4373UV-Jbabo [place] [facility] [address] DO Work Phone: 1(685) 663-956809-07-2022 13:40-0400Heart rate61 /minCharles P House Work Phone: mp601-9935LY-Zjolc [place] [employer] [address] DO Work Phone: 1(199) 860-264409-07-2022 13:40-0400Systolic blood kpiyjorc845 mm[Hg] Valente P House Work Phone: mp895-0939RS-Rukax [place] [employer] [facility] [address] DO Work Phone: 1(262) 128-403006-28-2022 12:15-0400Body xecunv767.42 cmThomas Olexa Other [employer] Other 06-28-2022 12:15-0400Body mass index (BMI) [Ratio] 28.49 kg/r6Mblnuq Olexa Other [employer] Other 06-28-2022 12:15-0400Body vhmuyj00.98 kgThomas Olexa Other [employer] Other 06-09-2022 10:30-0400Body .42 cmThomas Olexa Other [employer] Other 06-09-2022 10:30-0400Body mass index (BMI) [Ratio] 28.49 kg/y8Yhewak Olexa Other [facility] Other 06-09-2022 10:30-0400Body jhelgb01.98 kgThomas Olexa Other [facility] Other 03-02-2022 13:17-0500Body anslwv559.42 cmCharles P House Work Phone: mp126-9948FI-Hcfvu [place] [facility] [address] DO Work Phone: 1(742) 948-323503-02-2022 13:17-0500Body mass index (BMI) [Ratio] 29.95 kg/m3Iullkxo P House Work Phone: mp649-8064AC-Ltwbj [place] [facility] [address] DO Work Phone: 1(211) 481-199003-02-2022 13:17-0500Body surface area Derived from formula2.27 c7Oqxzuvw P House Work Phone: mp786-5111QD-Uzjdn [place] [facility] [address] DO Work Phone: 1(101) 567-902503-02-2022 13:17-0500Body kooevq109.97 kgCharles P House Work Phone: mp457-5278TO-Wjinj [place] [facility] [address] DO Work Phone: 1(271) 583-235503-02-2022 13:17-0500Diastolic blood bohyshpm58 mm[Hg] Valente P House Work Phone: mp166-7306IU-Vgpvn [facility] [address] DO Work Phone: 1(353) 958-914503-02-2022 13:17-0500Heart rate60 /minCharles P House Work Phone: mp806-4966ZL-Kfies [facility] [address] DO Work Phone: 1(252) 597-980303-02-2022 13:17-0500Systolic blood mgcmksid583 mm[Hg] Valente P House Work Phone: mp044-0647PO-Wvbga [place] [facility] [address] DO Work Phone: Encounters Encounter DateEncounter TypeCare ProviderFacilityStart: 01-12-2025 End: 27-18-3340Mytoewrvv department patient visitTim ThomasFacility:FTMCStart: 12-15-2024 End: 48-88-4541glljdfzvqcBdganfbFilippo Chua [facility] Work Phone: Start: 12-15-2024 End: 62-70-7089Rdojtani ReferredGilles Mae DO-LAB [facility] Start: 11-23-2024 End: 31-50-6098Diqgdcguklib / ancillary services managementKristin Mcmanus [facility] CenterComment on above:High risk medication use; Persistent atrial fibrillation (Multi)Start: 11-23-2024 End: 70-01-3845azpnqdtvurRCGDDVTPiedmont Macon Hospital AmbulatoryStart: 11-09-2024 End: 30-18-7572Yldtdlcihxsg / ancillary services managementClyde Yoo [facility] MichiganComment on above:Persistent atrial fibrillation (Multi) (Primary Dx); High risk medication useStart: 11-09-2024 End: 48-52-3092pihiydaecpNNTPDIRPiedmont Macon Hospital AmbulatoryStart: 11-03-2024 End: 99-12-5906Wvthrq outpatient visit 10 minutesNicholas A Brown DPM Work Phone: N[facility] CI PODIATRYComment on above:Xerosis cutis (Primary Dx); Diabetes 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, unspecified whether long 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 use (HCC); Pain due to onychomycosis of toenails of both feet; Right foot dropStart: 11-03-2024 End: 22-44-5992Gylriq flowsheetNicholas A Brown DPM Work Phone: noMS CI PODIATRYStart: 11-03-2024 End: 06-90-3964Gdsgvq flowsheetNicholas A Brown DPM Work Phone: noMS CI PODIATRYStart: 11-03-2024 End: 71-99-5673menjuyxdwdBGOUOSIU A BROWNNot AvailableStart: 10-26-2024 End: 22-49-3639Jkqtab outpatient visit 25 Jose Liz MD Work Phone: [facility] on above:Persistent atrial fibrillation (Multi) (Primary Dx); Single vessel coronary disease; High risk medication use; Stenosis of right carotid artery; Mixed hyperlipidemia; Essential hypertension; Anemia, unspecified type; Cerebrovascular accident (CVA), unspecified mechanism (Multi); Former smoker; BMI 24.0-24.9, adult; Prolonged QT intervalStart: 10-26-2024 End: 26-38-1065ysdnigarnbRQCOUHBPiedmont Macon Hospital AmbulatoryStart: 08-11-2024 End: 31-37-7897xayvbmkaxfBVXXKKYA A BROWNNot AvailableStart: 05-26-2024 End: 01-29-2774Qnnclv Julia Hi DPM Work Phone: noMS CI PODIATRYStart: 05-26-2024 End: 97-45-5112Fwtlazjosselyn Hi DPM Work Phone: noMS CI PODIATRYStart: 05-26-2024 End: 10-35-5723Mwqika outpatient visit 15 minutesMarciano Hi DPM Work Phone: noms CI PODIATRYComment on above:Xerosis cutis (Primary Dx); Diabetes 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, unspecified whether fpc insulin use ([facility]); Pain due to onychomycosis of toenails of both feet; Right foot dropStart: 05-26-2024 End: 00-55-2717pqafpvlxsxNCLSVEVX A BROWNNot AvailableStart: 04-20-2024 End: 76-26-6096Xiohtd outpatient visit 40 Jose Liz MD Work Phone: uh [facility] on above:TIA (transient ischemic attack) (Primary Dx); Single vessel coronary disease; High risk medication use; Stenosis of right carotid artery; Persistent atrial fibrillation (Multi); Mixed hyperlipidemia; Essential hypertension; Cerebrovascular accident (CVA), unspecified mechanism (Multi); Former smoker; BMI 26.0-26.9,adultStart: 04-20-2024 End: 22-87-6437ulxhtkhuaqSYDRHOVPiedmont Macon Hospital AmbulatoryStart: 03-17-2024 End: 61-12-1682Frolmu Julia Hi DPM Work Phone: n[facility] CI PODIATRYStart: 03-17-2024 End: 63-13-9538Rekmjn Julia Hi DPM Work Phone: noms CI PODIATRYStart: 03-17-2024 End: 63-02-1993Kjcpgi outpatient visit 10 Jose Manuel Hi DPM Work Phone: noms CI PODIATRYComment on above:Xerosis cutis (Primary Dx); Diabetes 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, unspecified whether long 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 use ([facility]); Pain due to onychomycosis of toenails of both feet; Right foot dropStart: 03-17-2024 End: 44-26-3223blbkucxjxqFVEKCCUO A BROWNNot AvailableStart: 01-28-2024 End: 30-41-7402Kumnit outpatient visit 25 Jose Liz MD Work Phone: uh FirelandsComment on above:Persistent atrial fibrillation (Multi) (Primary Dx); Single vessel coronary disease; Mixed hyperlipidemia; Essential hypertension; Anemia, unspecified type; Cerebrovascular accident (CVA), unspecified mechanism (Multi); High risk medication use; Former smoker; BMI 27.0-27.9,adultStart: 01-28-2024 End: 64-81-1472dptcbfsfrcBJLBNGNPiedmont [facility] AmbulatoryStart: 01-07-2024 End: 73-64-1075Ukjljmjosselyn Hi DPM Work Phone: [facility] PODIATRYStart: 01-07-2024 End: 54-60-6023Zmvulg Julia iH DPM Work Phone: [facility] PODIATRYStart: 01-07-2024 End: 79-43-6794Rpzdsv outpatient visit 15 minutesMarciano Hi DPM Work Phone: [facility] PODIATRYComment on above:Xerosis cutis (Primary Dx); Onychomycosis; Pain due to onychomycosis of toenails of both feet; Right foot dropStart: 01-07-2024 End: 25-66-2719ospoibpejbQBDKJXDD A BROWNNot AvailableStart: 07-30-2023 End: 90-81-3344Jrlvqu outpatient visit 25 minutesVeronica Liz MD Work Phone: [facility] HospitalComment on above:High risk medication use (Primary Dx); Single vessel coronary disease; Essential hypertension; Mixed hyperlipidemia; Persistent atrial fibrillation (Multi); BMI 28.0-28.9,adult; Cerebrovascular accident (CVA), unspecified mechanism (Multi); Anemia, unspecified type; Former smokerStart: 01-29-2023 End: 85-22-9891Itiojg outpatient visit 25 minutesVeronica Liz MD Work Phone: [facility] [facility] HospitalComment on above:Single vessel coronary disease (Primary Dx); Essential hypertension; Mixed hyperlipidemia; Persistent atrial fibrillation (CMS/HCC); Anemia, unspecified type; BMI 28.0-28.9,adultStart: 19-04-2966Ku RenewalChelsearles P House Work Phone: [phone]-[place] [address]A [place] Work Phone: Start: 32-40-2148chqlqnyacbAkddkiw Traboulssi Facility:[id number]: 78-58-1755Hg RenewalCharles P House Work Phone: [phone]-TbwkiEssentia Health 250 DO Work Phone: Start: 16-95-6553YBK, Provider: Veronica Liz, Status: Pen, Time: 9:40 AMCharles P House Work Phone: [phone]-Jjssh [facility] [facility] 250 DO Work Phone: Start: 64-97-0097Hecbwz outpatient visit 10 minutes Valente P House Work Phone: [phone]-Fevwp [facility] 250 DO Work Phone: Start: 67-90-3951solerjdnotYkkrylk [facility] Facility:[id number]: 76-78-3880Drtzkn outpatient visit 40 minutesCharles P House Work Phone: [phone]-Dsugd [facility] 250 DO Work Phone: Start: 73-97-9731fafphmxrksMwieqyo [facility] Facility:[id number]: 05-14-2022 End: 32-99-9692zutepejczoGO VALENTE HOUSEFacility:Z6Ficup: 04-20-2022 End: 75-39-1705eyrjlpvcoqDW VALENTE HOUSEFacility:V6Iidoi: 21-89-4430Pu Renewal Valente P House Work Phone: [phone]-WbsifFederal Correction Institution Hospitalusky 250 DO Work Phone: Start: 12-20-2021 End: 95-52-3848csagnptbraFL VALENTE HOUSEFacility:H8Cgsgn: 12-05-2021 End: 51-99-6670hkewwgxrdhRF VALENTE HOUSEFacility:Q2Lkmao: 11-28-2021 End: 70-23-3294Jpvscwwckr and management of inpatientMELISSA MARKERMerLoma Linda University Medical Centertart: 11-28-2021 End: 20-09-9798Ftbliqnasm and management of inpatientMichaelul Eber LEW Work Phone: stvz 1B Neuro ICUComment on above:Cerebrovascular accident (CVA), unspecified mechanism (HCC) (Primary Dx); HyponatremiaStart: 11-28-2021 End: 95-66-8168hfujandtpiGG BENITA MARKER .Facility:M4Ycgqz: 90-62-4951Xrcssu outpatient visit 25 minutesCharles P House Work Phone: [phone]-Aderj [facility] 250 DO Work Phone: Start: 21-87-9383wvmivqeyjxAsfpodj Traboulssi Facility:[id number]: 27-42-5673El RenewalCharles P House Work Phone: [phone]-Evrkq [facility] 250 DO Work Phone: Start: 79-04-8870qzrwbcxkctOukzwp IbrahimFacility:9090 Start: 09-22-2021 End: 75-99-9087becdpgtjbnJP ANN Rendon LUCYECKFacility:J8Xrgwd: 09-17-2021 End: 48-14-4003jfejhjioafQdtcby Olexa Other [employer] Other Start: 87-59-9691Yplbnb follow up visit related to original pxThomas OlexaFPG [facility] OrthopedicsStart: 08-29-2021 End: 36-84-4606zdxfdcvhyzHundzk Olexa Other [employer] Other Start: 52-54-9229GWOS visit new patientThomas OlexaFPG [facility] OrthopedicsStart: 08-26-2021 End: 41-43-9101zurgxtgcalJV CHARLES HOUSEFacility:Q6Wyten: 08-22-2021 End: 10-58-5809lwnqbqjtjiXH CHARLES SMITHFIELDFacility:L0Djyko: 65-14-8860Ltrbjy outpatient visit 25 minutesCharles P House Work Phone: [phone]-Vagri [facility] 250 DO Work Phone: Start: 08-72-6751Wlhtfcg encounter procedureMOFELI BENTLEYacility:1532 Procedures DateProcedureProcedure DetailPerforming ClinicianStart: 46-11-1305Jsa routine ecg w/least 12 lds w/i&Humberto Liz MD Work Phone: Start: 86-41-0050Bov routine ecg w/least 12 lds w/i&r Veronica Liz MD Work Phone: Start: 62-84-5371Fvd routine ecg w/least 12 lds w/i&r Veronica Liz MD Work Phone: Start: 10-37-6577Zhm routine ecg w/least 12 lds w/i&r Veronica Liz MD Work Phone: Start: 26-68-4776Qlm routine ecg w/least 12 lds w/i&r Veronica Liz MD Work Phone: Start: 11-37-5605Tcg routine ecg w/least 12 lds w/i&r Veronica Liz MD Work Phone: Start: 80-62-1828Jmrbhzz blood reagent stripJamal Chirri DO Work Phone: Start: 06-84-8557Doeqr metabolic panel calcium total Adina Hi PRINCIPAL SYSTEMS ENGINEER - TIN CAN FEEDER Work Phone: Start: 82-08-1673Yzgdccl blood reagent stripJamal Chirri DO Work Phone: Start: 12-03-2021 End: 45-33-5421Addqa of osmolality urineMohammad I Mashaleh DO Work Phone: Start: 24-66-0013Qhhymud blood reagent stripJamal Chirri DO Work Phone: Start: 79-70-3681Dctbg metabolic panel calcium total Adina Hi PRINCIPAL SYSTEMS ENGINEER - TIN CAN FEEDER Work Phone: Start: 31-74-6705Mibynel blood reagent stripJamal Chirri DO Work Phone: Start: 33-11-2078Gkebwmh blood reagent stripJamal Chirri DO Work Phone: Start: 80-73-8440Ief routine ecg w/least 12 lds trcg only w/o i&rJeffrey P Blood DO Work Phone: Start: 03-70-7241Qspzqkj blood reagent stripJamal Chirri DO Work Phone: Start: 12-02-2021 End: 78-37-2028Jcnuc of troponin Caitlin Holguin MD Work Phone: Start: 50-27-6523Cpnxm of magnesiumDanielle Holguin MD Work Phone: Start: 04-45-9108Uym routine ecg w/least 12 lds i&r onlyJamal Chirri DO Work Phone: Start: 07-58-6742Ycmor dip stick/tablet reagent auto microscopyDebbie Villalobos MD Work Phone: Start: 50-93-6353Vvozwsw blood reagent stripNeilmal Chirri DO Work Phone: Start: 48-45-0340Mzqmwgo blood reagent stripNeilmal Chirri DO Work Phone: Start: 06-28-5063Ljhnwpo blood reagent stripJamal Chirri DO Work Phone: Start: 33-69-5057Hkqpife blood reagent stripNeilmal Chirri DO Work Phone: Start: 83-19-5766Qpegdav blood reagent stripJamal Chirri DO Work Phone: Start: 74-50-8237Xmsra metabolic panel calcium total Amanda Garcia PRINCIPAL SYSTEMS ENGINEER - TIN CAN FEEDER Work Phone: Start: 01-59-2454Txtgnmt blood reagent stripJamal Chirri DO Work Phone: Start: 99-47-6533Vdtm tthrc r-t 2d w/wom-mode compl spec&colr Yina Cabrera MD Work Phone: Start: 16-32-0398Dxnvoad blood reagent stripJamal Chirri DO Work Phone: Start: 11-30-2021 End: 89-26-6842Gwhqy metabolic panel calcium totalAmanda Garcia PRINCIPAL SYSTEMS ENGINEER - TIN CAN FEEDER Work Phone: Start: 21-24-9377Egqcyph blood reagent stripJatutu Niecy DO Work Phone: Start: 70-62-9795Bztptxn blood reagent Rose Velázquez MD Work Phone: Start: 69-18-9543Uff routine ecg w/least 12 lds i&r onlyMayayadelfina Atkins PRINCIPAL SYSTEMS ENGINEER - TIN CAN FEEDER Work Phone: Start: 17-89-7911Oekvcno blood reagent Rose Velázquez MD Work Phone: Start: 33-55-5453Tdihp of Talat Velázquez MD Work Phone: Start: 91-75-5215Tf head/brain w/o contrast material Isidro Mehta MD Work Phone: Start: 04-33-8089Rdmcpjg blood reagent Rose Velázquez MD Work Phone: Start: 83-92-5167Zpprv metabolic panel calcium total Amanda Arroyo Garcia PRINCIPAL SYSTEMS ENGINEER - TIN CAN FEEDER Work Phone: Start: 85-33-3689Guytvkh blood reagent Rose Velázquez MD Work Phone: Start: 60-31-6832Igcggll blood reagent Rose Velázquez MD Work Phone: Start: 06-04-6702Ldzkqmh blood reagent Rose Velázquez MD Work Phone: Start: 22-72-9819Bsctsny blood reagent Rose Velázquez MD Work Phone: Start: 77-42-5348Fibzemi blood reagent Rose Velázquez MD Work Phone: Start: 91-30-8669Eiw brain brain stem w/o w/contrast materialIsidro Mehta MD Work Phone: Start: 00-33-1357Mngtm of Talat Velázquez MD Work Phone: Start: 25-65-5884Weftl panelPaul Eber LEW Work Phone: Start: 11-28-2021 End: 93-23-4882EJXDDAJ, BLOOD 1Paul Eber LEW Work Phone: Start: 83-46-4828Gf angiography neck w/contrast/noncontrastChristian Dk Mehta MD Work Phone: Start: 42-12-9557Zx head/brain w/o contrast material Zoroastrian Dk Mehta MD Work Phone: Start: 93-49-2493Pyafd metabolic panel calcium total Neal Velázquez MD Work Phone: Cataract surgeryCharles P House Work Phone: ColonoscopyCharles P House Work Phone: Elbow joint operationsCharles P House Work Phone: Operation on gallbladderCharles P House Work Phone: Procedure on backCharles P House Work Phone: TonsillectomyCharles P House Work Phone: VasectomyCharles P House Work Phone: Plan of Treatment DateCare ActivityDetailAuthorStart: 06-08-2025 End: 81-26-7089Luavkbw encounter snbaesilt06/19/2026 3:00 PM EDT Office Visit [facility] [address] [facility] [place] [address] [place] [address] Veronica Liz MD [address] [facility], [place] [address] [place] [address] [facility]: 01-26[facility]2025 End: 80-09-6674Msrgvow encounter yacnhbtyx37/06/2025 1:50 PM EST Procedure Visit [facility] [address] [place] [address] [place] [address] Marciano Hi DPM [address] [facility] 5 [place] [address] [facility] PODIATRYStart: 85-35-5097Uruoxwhj identified in Urine by CultureUrine CultureAdams County Hospitaltart: 12-15-2024 Urine cultureAdams County Hospitaltart: 11-23-2024 End: 53-20-3580WOS 12 LeadECG 12 Lead ECG Routine High risk medication use Persistent atrial fibrillation (Multi) Expected: 11/23/2024 (Approximate), Expires: 11/09/2025[facility] Service Area Work Phone: Comment on above:Expected: 11/23/2024 (Approximate), Expires: 11/09/2025Start: 11-23-2024 End: 75-05-8208Jiefffqqroxf / ancillary services wzxasemnkp11/03/2025 2:00 PM EDT Ancillary Procedure [address] [address] uh [facility]Start: 95-55-7630SUZMH-19 Vaccine ( season)COVID-19 Vaccine ( season)[facility] Start: 68-90-8629Sxixdawnk vaccinationInfluenza Vaccine (#1)[facility] HospitalStart: 11-09-2024 End: 88-68-0392TBQ 12 [facility] Service Area Work Phone: Comment on above:Expected: 11/09/2024 (Approximate), Expires: 10/26/2025Start: 11-09-2024 End: 33-15-6638Gkixgbaxcmcn / ancillary services tsmpstmbve67/20/2025 2:00 PM EDT Ancillary Procedure [address] [address] uh [facility]Start: 11-03-2024 End: 91-88-8486Stkzyym encounter zkpzmmoat10/14/2025 2:40 PM EDT Procedure Visit [facility] [address] [address] Marciano Hi DPM [address] [facility] 5 [place] [address] Diabetes 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, unspecified whether long 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 use (HCC) (Primary Dx); Pain due to onychomycosis of toenails of both feet; Right foot drop; Xerosis cutisNOMS CI PODIATRYComment on above:Diabetes 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, unspecified whether long 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 use (HCC) (Primary Dx); Pain due to onychomycosis of toenails of both feet; Right foot drop; Xerosis cutisStart: 10-26-2024 End: 59-84-9656Cskkfvm encounter /06/2025 2:30 PM EDT Office Visit [address] [address] Veronica Liz MD [address] [place] [address] 2, [facility] 250 [place] [address] [facility]: 08[facility]2024 End: 26-13-7452Qvuruyw encounter cyhucerob09/22/2025 2:10 PM EDT Procedure Visit [facility] 112 [facility] 120 [place] [address] Marciano Hi DPM [address] [address] [facility]ODI[facility]RYStart: 08-03-2024 End: 91-83-0531Ispusuc encounter /14/2025 3:30 PM EDT Office Visit [address] [address] Veronica Liz MD 703 [facility] 2, [place] [address] [place] [address] [facility]: 05-26-2024 End: 56-79-7339Wgodvoq encounter procedureNOMS CI PODIATRYComment on above: Diabetes 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, unspecified whether fpc insulin use (CMS/HCC) (Primary Dx); Pain due to onychomycosis of toenails of both feet; Right foot drop; Xerosis cutisStart: 03-17-2024 End: 52-80-9365Djuwnuz encounter otyqwwvbf38/26/2024 1:50 PM EST Procedure Visit [facility] [address] [facility] 120 [place] [address] Marciano Hi DPM [address] [facility] 5 [place] [address] [facility] PODIATRYStart: 03-17-2024 End: 91-81-3355Lnmtfuj encounter tictwarxg61/26/2024 11:50 AM EST Procedure Visit [facility] [address] [address] Marciano Hi DPM [address] [address] Diabetes 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,unspecified whether fpc insulin use (CMS/HCC) (Primary Dx); Pain due to onychomycosis of toenails of both feet; Right foot drop; Xerosis cutisNOMS CI PODIATRYComment on above:Diabetes 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, unspecified whether fpc insulin use (CMS/HCC) (Primary Dx); Pain due to onychomycosis of toenails of both feet; Right foot drop; Xerosis cutisStart: 01-28-2024 End: 18-19-4275Gpmuogb encounter ddetmknhb44/07/2024 3:10 PM EST Office Visit [facility] 703 [facility] 250 [place] [address] Veronica Liz MD 703 [facility] 2, [place] [address] [place] [address] [facility]: 01-07-2024 End: 48-05-5382Uiclgdb encounter rupjvqvhx72/17/2024 2:00 PM EDT Procedure Visit [facility] [address] [facility] 120 [place] [address] Marciano Hi, DPM [address] [facility] 5 [place] [address] Onychomycosis (Primary Dx); Pain due to onychomycosis of toenails of both feet; Right foot drop; Xerosis cutisNOMS CI PODIATRYComment on above:Onychomycosis (Primary Dx); Pain due to onychomycosis of toenails of both feet; Right foot drop; Xerosis cutisStart: 81-09-9656TWWKL-19 Vaccine ( season)COVID-19 Vaccine ()[facility]: 11-22-2023 Influenza vaccinationUnSelect Medical [facility]: 07-30-2023 End: 93-21-1773Hrquezo encounter uamiqlrwp08/09/2024 3:00 PM EDT Office Visit [facility] [address] [facility] 250 [place] [address] Veronica Liz MD 703 [facility] 2, [facility] 250 [place] [address] [facility]: 17-89-0443DOK, Provider: Veronica Liz, Status: Pen, Time: 3:10 PMFUV, Provider: Veronica Liz, Status: Pen, Time: 3:10 PM-[facility] [address] [place] Work Phone: Start: 78-48-7926Cbhdxfuv mellitus screeningDiabetes ScreeningUnSelect Medical [facility]: 73-70-8419Conozauyqx A1c tzhwxnvemszY0I test (Diabetic or Prediabetic)[facility]Start: 64-45-0836Hcldk panelLipidsBON K[facility] OHIOStart: 59-44-1428ITMZJ-19 Vaccine ( season)COVID-19 Vaccine ()[facility]: 43-04-3541Zifyqqrjj vaccinationInfluenza Vaccine (#1)[facility]: 74-70-4916ASX, Provider: Veronica Liz, Status: Pen, Time: 1:30 PMFUV, Provider: Veronica Liz, Status: Pen, Time: 1:30 PMMP-[facility] 250 DO Work Phone: Start: 62-55-4525RHX, Provider: Veronica Liz, Status: Pen, Time: 1:20 PMFUV, Provider: Veronica Liz, Status: Pen, Time: 1:20 PM[facility] 250 DO Work Phone: Start: 02-21-0964Nvtgapetpj A1c measurementDiabetes: Hemoglobin F0QIEQTTenet St. LouisStart: 01-27-2022 End: 66-83-7215Xpkjqao encounter pwvnaqcan92/07/2022 Office Visit Neurology AntoniJasmin MD [address] [place] [address] [facility] [address] [facility]Women [facility] Hospital [facility] Rhode Islandtart: 93-33-4875NCDSHKYS, Provider: SURJIT TIRADO COMPENSATION CONSULTANT 1,[id number], Status: Pen, Time: 1:30 PM NURSEVST, Provider: SURIJT TIRADO COMPENSATION CONSULTANT 1,[id number], Status: Pen, Time: 1:30 PMMelrose Area Hospital 250 DO Work Phone: Start: 12-19-2021 End: 87-28-1971JH HEAD WO CONTRASTCT HEAD WO CONTRAST Imaging Routine Cerebrovascular accident (CVA), unspecified mechanism (HCC) Expected: 12/19/2021, Expires: 11/30/2022ON [employer] Phone: comment on above:Expected: 12/19/2021, Expires: 11/30/2022Start: 12-10-2021 End: 10-77-3478Uqsyf metabolic 2000 panel - Serum or PlasmaBasic Metabolic Panel Lab Routine Hyponatremia Expected: 12/10/2021, Expires: 01/02/2022ON [employer] Phone: comment on above:Expected: 12/10/2021, Expires: 01/02/2022tart: 72-96-2727EVR, Provider: Veronica Liz, Status: Pen, Time: 1:30 PMFUV, Provider: Veronica Liz, Status: Pen, Time: 1:30 PMMP-[facility] 250 DO Work Phone: Start: 55-74-7486Nhzpcgzzz vaccinationFlu vaccine (#1) [facility]: 37-73-1237NXE High Risk: (Elderly (60+) or Population) (1 - 1-dose 75+ series)RSV High Risk: (Elderly (60+) or Population) (1 - 1-dose 75+ series)[facility] Start: 46-70-7155WWUYZ-19 Vaccine (4 - Booster for Pfizer series)COVID-19 Vaccine (4 - Booster for Pfizer series)[facility]: 03-12-2021 COVID-19 Vaccine (4 - Pfizer series)COVID-19 Vaccine (4 - Pfizer series) [facility] HospitalSt[facility]: 27-01-2002Nculsqfbf aortic aneurysm screeningAAA screenBON [facility]: 46-49-6578BHM patients and/or patients aged 60+ years (1 - 1-dose 60+ series)RSV patients and/or patients aged 60+ years (1 - 1-dose 60+ series)[facility] HospitalSt[facility]: 54-52-9878Cxgjjwur vaccine (1 of 2)Shingles vaccine (1 of 2)[facility]: 63-60-9028Mjdinr Vaccines (1 of 2)Zoster Vaccines (1 of 2)[facility]: 84-46-2648Dumxkvkdg for malignant neoplasm of colonBON [facility]: 1968 DTaP/Tdap/Td Vaccines (1 - Tdap)DTaP/Tdap/Td Vaccines (1 - Tdap)[facility]: 22-42-9562WUcH/Tdap/Td vaccine (1 - Tdap) DTaP/Tdap/Td vaccine (1 - Tdap)[facility]: 1964 Pneumococcal vaccinationPneumococcal Vaccine (1 of 2 - PCV)[facility]: 58-86-0937Iezttchbmjlr Vaccine: 65+ Years (1 of 2 - PCV) Pneumococcal Vaccine: 65+ Years (1 of 2 - PCV)[facility]: [facility] Urine screening for proteinDiabetes: Urine Protein ScreeningTenet St. Louis Start: 25-76-4529Gnmbbhal retinal examDiabetic retinal examR[facility]: 94-55-8122Frznszavl C screeningBON [facility]: 61-14-3096Xhxkyzaoam ScreenDepression ScreenR[facility]: 04-11-9905Bgcznlat foot examinationDiabetic foot examSENTARA [facility] Start: 33-84-6879Inxkodch screeningDiabetes: Retinopathy ScreeningChildren's Mercy Northlandart: 91-96-3214Kbfgjkjnnfze 65+ years Vaccine (1 - PCV)Pneumococcal 65+ years Vaccine (1 - PCV)[facility]: 13-33-9975Mywqhavwymec Vaccine: 65+ Years (1 - PCV)Pneumococcal Vaccine: 65+ Years (1 - PCV)[facility]: 70-95-0818Iudenvlfajfk Vaccine: 65+ Years (1 of 2 - PCV)Pneumococcal Vaccine: 65+ Years (1 of 2 - PCV)[facility]: 49-00-9472Hdwloi Wellness Visit (AWV)Annual Wellness Visit (AWV) [facility]: 86-84-1003Nsrmt panelLipid PanelUnSelect Medical [facility]: 08-03-1947Medicare Annual Wellness (AWV)Medicare Annual Wellness (AWV)[facility]Start: 08-03-1947Medicare Annual Wellness VisitMedicare Annual Wellness Visit (AWV)[facility] End: 42-27-7581Flbyv metabolic 2000 panel - Serum or PlasmaBasic Metabolic Panel Lab Routine Daily for 3 Days starting 12/03/2021 until 12/05/2021, 2 completed [employer] Phone: comment on above:Daily for 3 Days starting 12/03/2021 until 12/05/2021, 2 completed End: 57-19-7155YWG W Auto Differential panel - BloodCBC with Auto Differential Lab Routine Daily for 3 Days starting 12/03/2021 until 12/05/2021, 2 completed [employer] Phone: Comment on above:Daily for 3 Days starting 12/03/2021 until 12/05/2021, 2 completedContinuous pulse oximetryPulse oximetry, continuous Respiratory Care Routine Every 4hr until discontinued starting 11/28/2021ON [employer] Phone: comment on above:Every 4hr until discontinued starting 11/28/2021Glucose [Mass/volume] in Serum or PlasmaBON [employer] Phone: comment on above:4X Daily (AC & HS) until discontinued starting 11/28/2021s Needed until discontinued starting 11/28/2021xygen therapy [Minimum Data Set]Initiate Oxygen Therapy Protocol Respiratory Care Routine As Needed until discontinued starting 11/28/2021ON [employer] Phone: comment on above:As Needed until discontinued starting 11/28/2021 End: 23-54-2524GVI clinical swallow evaluationSLP clinical swallow evaluation FIELD SUPERVISOR Routine One Time for 1 Occurrences starting 11/28/2021 until 11/28/2021ON [employer] Phone: Comment on above:One Time for 1 Occurrences starting 11/28/2021 until 11/28/2021 End: 95-49-1473Slqbqs and language therapy regimeSpeech Language Pathology (FIELD SUPERVISOR) eval and treat FIELD SUPERVISOR Routine One Time for 1 Occurrences starting 11/28/2021 until 11/28/2021[facility] Work Phone: comment on above:One Time for 1 Occurrences starting 11/28/2021 until 11/28/2021 Immunizations Immunization DateImmunizationNotesCare MgorghpdDgkgamkk92-00-8421Uahfoc-EamNGqqe COVID-19 Vacc 30 MCG/0.3ML Intramuscular SuspensionCharles P House Work Phone: [facility] on above: Series:72-02-5966Gnzbjs-BioNTech COVID-19 Vacc 30 MCG/0.3ML Intramuscular SuspensionCharles P House Work Phone: [facility]03-01-2021Pfizer- BioNTech COVID-19 Vacc 30 MCG/0.3ML Intramuscular SuspensionCharles P House Work Phone: [facility] on above: Series:52-49-9884twthxfyvx virus vaccine, unspecified formulationCharles P House Work Phone: [phone]-JjtmySt. [facility] Medical [facility] 250 DO Work Phone: Payers DatePayer CategoryPayerPolicy [id number]-tyb [id number] 2012Medicare [id number] [id number] 1947 [id number] 2.840.1.893183.3.57[id number] 2.16840.1.304663.3.57[id number] 2.16840.1.341627.3.57[id number] 2.16840.1.126427.3.57[id number] 2.16840.1.745207.3.579.[id number] 2.16840.1.907540.3.579.2.91346-65-5206Tetvccd2613810 2.16840.1.758609.3.579.2.40464-34-5021Lkdpezx4610427 2.16840.1.000634.3.57[id number] 2.16840.1.408108.3.579.2.[id number] 2.840.1.991239.3.57[id number] 2.840.1.954660.3.57[id number] 2.840.1.298214.3.57[id number] 2.840.1.680640.3.57[id number] 2.840.1.678399.3.57[id number] 2.16840.1.823497.3.57[id number] 2.16840.1.191058.3.579.2.584711-11-7792Xzapdxa5407448 2.16840.1.024131.3.579.2.346277-56-7307Ajwoxzq5044528 2.16840.1.165196.3.579.2.010349-89-4910Rvkjbst2406247 2.16.840.1.113404.3.579.[id number] 2.16.840.1.849876.3.579.[id number] 2.16.840.1.429716.3.579.[id number] 2.16.840.1.717659.3.579.[id number] 2.16.840.1.852021.3.57[id number] 2.16.840.1.905883.3.57[id number] 2.16.840.1.503638.3.579.2.569374-96-7152Urtsqwv24009060 2.16.840.1.299602.3.57[id number] 2.16.840.1.236401.3.579.2.727UnknownUnknownHCAP/HFA/FAP [id number] 0fp83315-1189-0847-977r-[id number] 2.840.1.460768.3.579.2.531 Social History DateTypeDetailFacilityStart: 01-29-2023 End: 33-58-7675Ja illicit drug useNo illicit drug use-[facility]- [place] 250 DO Work Phone: Comment on above:1 BEER OCCASIONALLY;2 CUPS OF COFFEE DAILY;QUIT MAR 2019;Start: 01-29-2023 End: 75-73-4974Svf Assigned At [facility] CONWEAVER Other Start: 09-23-2021 End: 07-33-8882Xoglvdi smoking status NHISEx-smokerABRAZO [facility] Doc[facility]AP Phone: End: 51-50-7551Sqykodg of tobacco useCurrent smokerABRAZO [facility] [employer]AP Phone: End: 78-41-4444Xdspnvf of tobacco useCigarette SmokerABRAZO [facility] [employer] Phone: start: 12-02-2021 End: 64-58-0926Apqaznz intakeCurrent drinker of alcohol (finding)[facility] [employer] Phone: start: 12-79-3130Zwrddsb SDOH Alcohol Ovjqteuzy6XSA [employer] Phone: start: 56-76-7263Yhnraow SDOH Alcohol Std Mdahdf4LUZ [employer] Phone: start: 21-95-0182Wtcrwdo SDOH Alcohol Commentocc beer [facility] [employer] Phone: start: 60-77-9810Mou Assigned At BirthNot on hattieABRAZO [facility] [employer] Phone: start: 11-18-2021 End: 59-78-3701Iyaxcazz to SARS-CoV-2 (event)Not sureABRAZO [facility] [employer] Work Phone: start: 31-88-3752[facility]: 01-29-2023 End: 30-43-9577Cfpucjf use and exposureSmokeless tobacco non-userHocking Valley Community Hospital Work Phone: Start: 79-78-8261Hzcvlra CommentoccasionallyUnMercy Hospital Work Phone: Start: 22-05-1735Fxcirzj smoking status NHISTobacco smoking consumption unknownCASTLEVIEW HOSPITAL HealthcareStart: 80-75-0048Xbxeamy Commentcoffee dailyTenet St. LouisStart: 71-56-1091QlhPgipIsnromriobJoint Township [facility] HospitalSex Male (finding)[facility] HospitalNEGATED: Highlighted rowStart: NINFHistory of tobacco usePassive [facility] Medical Equipment Procedure CodeEquipment CodeEquipment Original TextEquipment IdentifierDates Capsule endoscopy, for patency of lumen evaluationVideo capsule endoscopy system ()[id number] FDAStart: 99-73-1678Zubarbi artery closure plug/patch, synthetic polymer()[id number] FDAStart: 03-31-2019 Clinical Notes 08-26-2021 to 01-12-2025 Note Date & [id number] NoteED Patient Education Note Nephrology Acute Kidney [...] these instructions at home: Medicines ??? Take slie-tnq-wsujovl and prescription medicines only as told by [...] your kidneys. Where to find support ??? [place] [employer] Patients: aakp.org ??? [place] [employer]: akfinc.org Where to find more information ??? National Kidney Foundation: k (more content not included)...[facility]09-03-2025 History of Present illness Narrative* Kristin [...] m (6' 1 ) documented in [facility] Work Phone: 1(280) 139-923308-20-2025 History of Present illness Narrative* Clyde Yoo [...] done in office today documented in this encounterH[facility] Work Phone: 1(728) 881-282108-06-2025 History of Present illness Narrative* Veronica Liz [...] exam, discussion and plan. documented in this [facility] Work Phone: 1([phone]) 476-144608-06-2025 Instructions* Patient Instructions* Evelina Yoder RN - [...] three times a day documented in this [facility] Work Phone: 1(659) 610-935403-06-2025 History of Present illness Narrative* Marciano Hi [...] has periodically been using prescribed or recommended pnzn-kuk-cmuzxwc cream with negative improvement. Patient also states he had cold exposure for many years to his feet Patient has history of right foot drop secondary to spinal surgery in the past and refused AFO rx in the past. Allergies: No Known Allergies Past Medical History: Past Medical History: Diagnosis Date Diabetes ([facility]) Medications: [...] and negative PT pedal pulses NEURO: 5.07 Bertrand Nacho monofilament test diminished to digits and forefoot bilaterally 125Hz tuning fork diminished to 1st MPJ bilaterally ORTHO: Positive pain on palpation to toenails of the left 1,2,3,4,5 toes and right 1,2,3,4,5 toes +4/5dorsiflexion right ankle ASSESSMENT 1. Diabetes 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, unspecified whether fpc insulin use ([facility]) 2. [...] . Patient states that he will use hwrq-hac-culmzje creams as necessary Marciano Hi DPM documented in this encounterTenet St. LouisOxnbakzegc39-97-0130 History of Present illness Narrative* Veronica Liz [...] diagnosed with TIA. He was at [facility]. He underwent evaluation and was seen by [...] on the review of the record from [place]. He was asked To see me to [...] exam, discussion and plan. documented in this encounterH[facility] Work Phone: 1(226) 250-786901-29-2025 Instructions* Patient Instructions* Shaina Floyd LPN - [...] 6 months Declines anticoagulation. documented in this encounterHock[facility] Work Phone: 1([phone]) 177-223812-26-2024 History of Present illness Narrative* Marciano Hi [...] has periodically been using prescribed or recommended odsm-zoo-ghiodfz cream with negative improvement. Patient also states he had cold exposure for many years to his feet Patient has history of right foot drop secondary to spinal surgery in the past and refused AFO rx in the past. Allergies: No Known Allergies Past Medical History: Past Medical History: Diagnosis Date Diabetes ([facility]) Medications: [...] and negative PT pedal pulses NEURO: 5.07 Bertrand Nacho monofilament test diminished to digits and forefoot bilaterally 125Hz tuning fork diminished to 1st MPJ bilaterally ORTHO: Positive pain on palpation to nails 1 through 10 +4/5dorsiflexion right ankle ASSESSMENT 1. Diabetes 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, unspecified whether long 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 use ([facility]) 2. [...] . Patient states that he will use hkkz-utv-bcppxbf creams as necessary Marciano Hi DPM documented in this encounterTenet St. LouisYapeajwuiu39-82-1018 History of Present illness Narrative* Veronica Liz [...] fibrillation. [facility] time he [facility] but repeat EKG today he is [...] exam, discussion and plan. documented in this [facility] Work Phone: 1([phone]) 934-131111-07-2024 Instructions* Patient Instructions* Carline López LPN - [...] through Care Everywhere. * Heart Healthy Diet (Cuban) documented in this [facility] Work Phone: 1(126) [phone] History of Present illness Narrative* Marciano Hi [...] has periodically been using prescribed or recommended usdo-yph-crwicfj cream with minimal improvement. Patient also states he had cold exposure for many years to his feet Patient has history of right foot drop secondary to spinal surgery in the past and refused AFO rx in the past. Allergies: No Known Allergies Past Medical History: Past Medical History: Diagnosis Date Diabetes ([facility]) Medications: [...] and negative PT pedal pulses NEURO: 5.07 Bertrand Nacho monofilament test diminished to digits and [...] . Patient states that he will use gcqi-iwf-wrtxejg creams as necessary Marciano Hi DPM documented in this encounterTenet St. LouisAfcsjtayus05-91-6817 History of Present illness Narrative* Veronica Liz [...] exam, discussion and plan. documented in this [facility] Work Phone: 1([phone]) [phone] Instructions* Patient Instructions* Shaina Floyd LPN - [...] 6 months with ekg documented in this [facility] Work Phone: 1(562) [phone] History of Present illness Narrative* Veronica Liz [...] done in office today documented in this [facility] Work Phone: [phone]) 564-339411-09-2023 Instructions* Patient Instructions* Clyde Nunez MA - [...] time of your visit. documented in this [facility] Work Phone: 1(673) 961-242103-16-2023 History of Present illness Narrative* Yesterday OV [...] try to retrieve retrieve his record from [facility] 250 DO Work Phone: 1(756) 912-351409-13-2022 History of Present illness Narrative* Valerie Del Toro, PRINCIPAL SYSTEMS ENGINEER - TIN CAN FEEDER - 12/03/2021 10:12 AM EDT Images from the original note were not included. [employer] Progress Note Date: 12/03/2021 Patient name: Shahrzad [...] (HCC) COPD (chronic obstructive pulmonary disease) (HCC) [id number] Score for Atrial Fibrillation Stroke Risk Risk Factors Component Value C CHF No 0 H HTN Yes 1 A2 Age >= 75 Yes, (76 y.o.) 2 D DM Yes 1 S2 Prior Stroke/TIA No 0 V Vascular Disease No 0 A Age 65-74 No, (76 y.o.) 0 Sc Sex male 0 [id number] Score 4 Score last updated 12/03/21 10:13 [...] call with further questions or concerns [employer] [phone] * Jasmin Corrales MD - 12/03/2021 8:49 AM EDT [facility] Neurology IN-PATIENT SERVICE [facility] Progress Note Date: 12/03/2021 Patient name: Shahrzad Edgar Date of admission: 11/28/2021 3:15 AM Account: [id number] Date of : 1945 PCP: No primary care provider on file. Room: [address] [place] [address] Code Status: Full Code Chief Complaint: Right [...] He is eager to be discharged to [facility]. Patient counseled regarding treatment follow-up [...] headache with dizziness. Initially evaluated at [facility] and later transferred to [facility] after CT head was done showing [...] ms QTc Calculation (Bazett) 516 ms R Holly 23 degrees T Holly 48 degrees POC Glucose Fingerstick Collection Time: [...] 1.07 (L) 1.10 - 3.70 k/uL Absolute Swisher # 1.20 0.10 - 1.20 k/uL Absolute [...] medical management PT/OT/ST Plan for discharge to [facility] today Follow-up further recommendations after [...] history and exam findings with the resident/ TIN CAN FEEDER. I reviewed medications, clinical labs, x-rays and other diagnostic tests with the resident/ TIN CAN FEEDER. I have seen and examined the patient and the lamas elements of the encounter have been performed by me. I agree with the assessment, plan and orders as documented by the resident or TIN CAN FEEDER. Impression and Plan: Mr. Shahrzad Edgar is [...] the original note were not included. [facility] Office: [phone] Darrius Mattson DO, Valente Kaur DO, Noel Lin DO, Gilles Mantilla DO, Ernst Pond MD, Sara Dalal MD, Lizbet Grossman MD, Ernestine Colvin MD, aGurav Macias MD, Jyoti Dale MD, Moody CanasDO, Jennifer Kaur MD, Dany Arroyo DO, Abbi Kirkland MD, yKe Adam MD, Keny Mattson DO, Phuong Cannon MD, Dustin Degroot MD, Susan Castro MD, Aaliyah Rudolph MD, Mary Concepcion MD, Dorcas Ness MD, Osmin Marlow DO, Zena Irby MD, Lewis See MD, Blanka Martin, TIN CAN FEEDER, Nicky Gonzalez, TIN CAN FEEDER, Pattie Vasquez, TIN CAN FEEDER, Prem Potter, TIN CAN FEEDER, Adrienne Domingo, MIYA, Marissa Hamilton, TIN CAN FEEDER, Lida Soto, TIN CAN FEEDER, Rosmery Bryan, TIN CAN FEEDER, Cici Antoine, TIN CAN FEEDER, Leslie Chen, TIN CAN FEEDER, Lalito Baker PA-C, Kathy Wilder, BENCH CHEMIST, Janet Bar, MIYA, Triny Francois, TIN CAN FEEDER, Mary Ortiz, TIN CAN FEEDER, Sue Rivera, TIN CAN FEEDER [facility] IN-PATIENT SERVICE [facility] Progress Note 12/03/2021 8:19 AM Name: Shahrzad Edgar Acct: [id number] Room: 0122/0122-01 Day: 5 Admit Date: 11/28/2021 [...] results found for: POCPH, PHART, PH, POCPCO2, OFU4NUO, PCO2, POCPO2, PO2ART, PO2, POCHCO3, DWI2EXP, HCO3, NBEA, PBEA, BEART, BE, THGBART, THB, SRM1VVY, NPLS5YFM, Q5BQMDZK, O2SAT, FIO2 Lab Results Component Value Date/Time [...] range) infarct in the region of right S6caylyttr division with petechial hemorrhage in areas along [...] called by Dr. Adalberto Escobar to Dr. Velázquze on 11/28/2021 at 06:40. CTA head neck with contrast Result Date: 11/28/2021 1. Findings appear most consistent with subacute (1-2 week range) infarct in the region of right G4rzhkrsaf division with petechial hemorrhage in areas along [...] 12/02/2021 3:22 PM EDT Physical Therapy Facility/Department: [address] NEURO ICU Daily Treatment Note NAME: [...] verbally reminded to do so; able to ring attacher margie stedy with max A+1, again leans [...] with least restrictive AD Additional Goals?: No Reception Interviewer Goals Additional Goals?: No Education Patient Education [...] EDT Speech Language Pathology Speech Language Pathology [facility] Cognitive and Speech Treatment Note Date: 12/02/2021 Patient s Name: Shahrzad Edgar Diagnosis: Patient Active Problem List Diagnosis Code Cerebrovascular accident (CVA) ([facility]) I63.9 Otitis media with effusion, left H65.92 History of atrial fibrillation Z86.79 Anemia D64.9 Pain: 0/10 Cognitive Treatment Treatment time: 5365-1663 Subjective: [x] Alert [x] Cooperative [] Confused [] Agitated [] Lethargic Objective/Assessment: Recall: Delayed Recall - Associated Lists: 11/29 independently Organization: Category Members - [place]: 02/01 increased to 03/03 with mod verbal [...] recommended at discharge. Completed by: Sheri Serna Java Developer Analyst Clinician Cosigned By: Ayla White M.S.CCC/FIELD SUPERVISOR * Evelin Griffin RN - 12/02/2021 8:59 AM EDT [employer] Documentation Note Admission Dx: Brain mass [G93.89] Past Medical History: has a past medical history of Arthritis, COPD (chronic obstructive pulmonary disease) (HCC), Diabetes mellitus (HCC), History of blood transfusion, and Hypertension. Previous Testing: ECHO 11/30/2021: EF 54%, negative bubble study, no valvular abnormalities. Previous office/hospital visit: None Evelin Griffin RN [place] [employer] * Zena Irby MD - 12/01/2021 11:32 [...] nothelp. Patient was initially evaluated at [facility] and noted to have left upper [...] prior to transfer over. Upon arrival at [place], patient's blood pressure was normotensive. Evaluated by [...] started at that time. Continue on Statin PT/OT/FIELD SUPERVISOR Urinary retention - will obtain urology [...] 11/30/2021 2:49 PM EDT Physical Therapy Facility/Department: [address] NEURO ICU Daily Treatment Note Name: [...] decrease pushing with R UE. OutComes Score AM-[facility] Score -[facility] Inpatient Mobility Raw Score : 8 (11/30/211436) -[facility] Inpatient T-Scale Score : 28.52 (11/30/211436) Mobility [...] with least restrictive AD Additional Goals?: No Reception Interviewer Goals Additional Goals?: No Education Patient Education [...] not help. He was seen by his senior net software engineer and was told that his BP was elevated; he was started on lisinopril 5 mg daily. He was initially evaluated at [facility]. Patient was noted to have left [...] to ensure the accuracy of this automated dietetic tech, some errors in dietetic tech may have occurred. Associated attestation - Allan [...] 11/29/2021 5:44 PM EDT Occupational Therapy Facility/Department: [address] NEURO ICU Occupational Therapy Initial Assessment [...] use in appartment) Transfer Assistance: Independent Active Combine Mechanic: Yes Mode of Transportation: Car Occupation: Retired Leisure & Hobbies: [employer]ER[employer] Objective Safety Devices Type of Devices: All [...] 11/29/2021 3:46 PM EDT Physical Therapy Facility/Department: [address] NEURO ICU Physical Therapy Initial Assessment [...] exact time). He was initially evaluated at [facility]. Patient was reported to have been at [facility] earlier today, and BP was elevated, but patient unable to state how elevated. No improvement with Excedrin. Patient denies any other blood thinners aside from aspirin. At [facility] patient noted to have clear [...] did have purulent material. CT head from [facility] showed area of hypoattenuation in right parietotemporal [...] use in appartment) Transfer Assistance: Independent Active Combine Mechanic: Yes Mode of Transportation: Car Occupation: Retired Leisure & Hobbies: Enlightened Lifestyle Vision/Hearing Vision: Needs glasses for reading Hearing: [...] sitting EOB for ~13 mins. AM-PAC Score AM-[facility] Inpatient Mobility Raw Score : 9 (11/29/211544) AM-[facility] Inpatient T-Scale Score : 30.55 (11/29/211544) Mobility Inpatient CMS 0-100% Score: 81.38 (11/29/211544) Mobility Inpatient [facility] G-Code Modifier : CM (11/29/211544) Goals [...] with least restrictive AD Additional Goals?: No Intermediate Goals Additional Goals?: No Education Patient Education [...] Patient's name: Shahrzad Edgar Patient's account/billing number: [id number] Patient's Date of : 1945 Age: 76 y.o. Date of Admission: 11/28/2021 3:15 AM Length of stay during current admission: 1 Primary Care Physician: No primary care provider on file. Code Status: Full Code Mode of physician to physician communication: [] Via telephone [x] In person Date and time of sign-out: 11/29/2021 2:50 PM Accepting Neurology TRAINING DEVELOPER: Adina Do NP Accepting team's attending: Dr. [...] EDT Speech Language Pathology Speech Language Pathology [facility] Dysphagia Treatment Note Date: 11/29/2021 [...] Provided with Soft Solids, Puree, Thin and Tancred thick trials. Pt. With no overt s/s [...] discharge. Treatment completed by: ROBBY Hall, M.S. CCC-FIELD SUPERVISOR * Sheri Serna - 11/29/2021 11:47 AM EDT Speech Language Pathology Speech Language Pathology [facility] Cognitive and Speech Treatment Note [...] 8/9 with repetitions Organization: Category Members - [place]: 27/36 increased to 36/36 with min-mod verbal [...] recommended at discharge. Completed by: Sheri Serna Java Developer Analyst Clinician Cosigned By: Ayla White M.S.CCC/FIELD SUPERVISOR * Joseph Mcdonnell, PT - 11/29/2021 9:28 AM EDT Images from the original note were not included. Physical Therapy Physical Therapy Cancel Note DATE: 11/29/2021 NAME: Shahrzad dEgar : 1945 Patient not seen this date for Physical Therapy due to: Other: Pt with OT, to CT, then speech. Ck pm as able * Guevara Kaur, DO - 11/29/2021 6:48 AM EDT Images from the original note were not included. Daily Progress Note Neuro Critical Care Patient Name: Shahrzad Edgar Patient : 1945 Room/Bed: [facility]0122-01 Code Status: Full Code Allergies: Allergies Allergen [...] Guevara Kaur DO Neuro Critical Care Pager [phone] 11/29/2021 6:48 AM Associated attestation - Neal [...] prophylaxis. Maintain SBP < 160. Incentive spirometry. FIELD SUPERVISOR eval. PT/OT. Insulin sliding scale. Stepdown. Discharge planning. I independently reviewed all labs, imaging and EKG tracings * ROBBY Hall - 11/28/2021 3:02 PM EDT Speech Language Pathology Facility/Department: [address] NEURO ICU CLINICAL BEDSIDE SWALLOW EVALUATION [...] exact time). He was initially evaluated at [facility]. Patient was reported to have been at [facility] earlier today, and BP was elevated, but patient unable to state how elevated. No improvement with Excedrin. Patient denies any other blood thinners aside from aspirin[facility] to [facility] clear [...] did have purulent material. CT head from [facility] showed area of hypoattenuation in right parietotemporal [...] prior to transfer to Neuro ICU at [place]. Pain: Pain Assessment Pain Assessment: 0-10 Pain [...] with partial PO only Treatment Plan Requires FIELD SUPERVISOR Intervention: Yes D/C Recommendations: Ongoing speech [...] Patient Education Response: Needs reinforcement Therapy Time [id number] ROBBY Hall 11/28/2021 3:02 PM * Sheri Serna - 11/28/2021 1:30 PM EDT Speech Language Pathology Facility/Department: [address] NEURO ICU Initial Speech/Language/Cognitive Assessment NAME: [...] exact time). He was initially evaluated at [facility]. Patient was reported to have been at [facility] earlier today, and BP was elevated, but [...] prior to transfer to Neuro ICU at [place]. Pain: Pain Assessment Pain Assessment: 0-10 Pain [...] noted deficits. Education provided. Recommendations: Recommendations Requires FIELD SUPERVISOR Intervention: Yes Patient Education: yes Patient [...] With: Friend(s) Type of Home: Apartment Active Combine Mechanic: Yes Vision Vision: Within Functional Limits Hearing [...] 1058 Minutes 12 Completed by: Sheri Serna Java Developer Analyst Clinician Cosigned By: Ayla White M.S.CCC/FIELD SUPERVISOR * Raymundo Dallas RPH - 11/28/2021 6:36 AM EDT [facility] Pharmacokinetic Monitoring Service - Vancomycin [...] 11/28/2021 6:35 AM documented in this encounterBON [facility] Phone: 1(317) 230-998809-12-2022 Hospital Discharge instructions* Discharge Instr - NORMA* Reese Schofield RN - 12/02/2021 2:45 PM EDT Continuity of Care Form Patient Name: Shahrzad Edgar : 1945 Admit date: 11/28/2021 Discharge date: 12/03/2021 Code Status Order: Full Code Advance Directives: Admitting Physician: Allan Pemberton DO PCP: No primary care provider on file. Discharging Nurse: reese Discharging Hospital Unit/Room#: 0122/0122-01 Discharging Unit Phone Number: [phone] Emergency Contact: Extended Emergency Contact Information Primary Emergency Contact: nadine allen Cotton Relation: Other Preferred language: Cuban Waiver Analyst needed? No Past Surgical History: No [...] Assisted Dressing Assisted Toileting Independent Feeding Independent Ip Paralegal Independent Med Delivery whole Wound Care Documentation [...] Dysphagia soft Routes of Feeding: Oral Liquids: Tancred Thick Liquids Daily Fluid Restriction: 1500 Last [...] Readmission: 13 Discharging to Facility/ Agency Name: [facility] Address: Phone: Fax: Dialysis Facility (if applicable) Name: Address: Dialysis Schedule: Phone: Fax: Body Worker/Magician/Illusionist signature: PHYSICIAN SECTION Prognosis: {Prognosis:3936376794} Condition at Discharge: { Patient Condition:499945347} Rehab Potential (if transferring to Rehab): {Prognosis:5850353333} Recommended Labs or Other Treatments After Discharge: Physician Certification: I certify the above information and transfer of Shahrzad Edgar is necessary for the continuing treatment of the diagnosis listed and that he requires {Admit to Appropriate Level of Care:85198} for {GREATER/LESS:909173742} 30 days. Update Admission H&P: {CHP DME Changes in HandP:472187550} PHYSICIAN SIGNATURE: * Attachments The following attachments cannot be sent through Care Everywhere. * Statins (Cuban) * Ischemic Stroke: General Info (Cuban) * Stroke: Symptoms: General Info (Cuban) * Diabetes: Heart Attack and Stroke Risk: General Info (Cuban) documented in this encounterB[facility] [employer] Work Phone: 1(946) 871-805706-28-2022 Evaluation note* Encounter Date Diagnosis Assessment Notes Treatment Notes Treatment Clinical Notes Aug, Left hand pain (ICD-10 - M79.642 ) Aug, losed displaced fracture of proximal phalanx of left little finger with routine healing, subsequent encounter (ICD-10 - S62.617D)Radiographs reviewed with patient today. Discussed with patient to work on range of motion exercises [employer] Other 06-09-2022 Evaluation note* Encounter Date Diagnosis [...] and elevate to decrease pain and swelling. [employer] Other 06-06-2022 NotePROCEDURE: XR HAND LT MIN 3V COMPARISON: None. HISTORY: Pain FINDINGS: BONES:Subtle contour deformity identified at the base of the fifth proximal phalanx. No dislocation. Mild degenerative changes. SOFT TISSUES:Negative. No visible soft tissue swelling. EFFUSION:None visible. OTHER: Negative. IMPRESSION: Suspected nondisplaced fracture base of the fifth proximal phalanx Electronically authenticated by: REINA GO Date: 2021-08-26 10:45[facility]* Diagnosis Cerebrovascular accident (CVA), unspecified [...] (HCC) Intracerebral hemorrhage documented in this encounter [facility] Work Phone: evaluation noteNo assessment information available [facility] Work Phone: Evaluation note* Diagnosis Single vessel coronary disease- Primary Essential hypertension Unspecified essential hypertension Mixed hyperlipidemia Persistent atrial fibrillation (CMS/HCC) Atrial fibrillation Anemia, unspecified type BMI 28.0-28.9,adult documented in this encounter [facility] Work Phone: Evaluation note* Diagnosis High risk medication use- Primary Single vessel coronary disease Essential hypertension Unspecified essential hypertension Mixed hyperlipidemia Persistent atrial fibrillation (Multi) Atrial fibrillation BMI 28.0-28.9,adult Cerebrovascular accident (CVA), unspecified mechanism (Multi) Anemia, unspecified type Former smoker Personal history of tobacco use, presenting hazards to health documented in this encounter [facility] Work Phone: Evaluation note* Diagnosis Xerosis cutis- Primary Other specified disease of sebaceous glands Onychomycosis Dermatophytosis of nail Pain due to onychomycosis of toenails of both feet Right foot drop Other acquired deformity of ankle and foot documented in this encounter [place] [facility] HealthcareEvaluation note* Diagnosis Persistent atrial fibrillation (Multi)- Primary Atrial fibrillation Single vessel coronary disease Mixed hyperlipidemia Essential hypertension Unspecified essential hypertension Anemia, unspecified type Cerebrovascular accident (CVA), unspecified mechanism (Multi) High risk medication use Former smoker Personal history of tobacco use, presenting hazards to health BMI 27.0-27.9,adult documented in this encounter [facility] Work Phone: Evaluation note* Diagnosis Xerosis cutis- Primary Other specified disease of sebaceous glands Diabetes 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, unspecified whether long 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 use ([facility]/HCC) Pain due to onychomycosis of toenails of both feet Right foot drop Other acquired deformity of ankle and foot documented in this encounter [facility] HealthcareEvaluation note* Diagnosis TIA (transient ischemic [...] health BMI 26.0-26.9,adult documented in this encounter [facility] Work Phone: Evaluation note* Diagnosis Persistent [...] electrocardiogram (ECG) (EKG) documented in this encounter [facility] Work Phone: Evaluation note* Diagnosis Xerosis cutis- Primary Other specified disease of sebaceous glands Diabetes 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, unspecified whether fpc insulin use ([facility]) Pain due to onychomycosis of toenails of both feet Right foot drop Other acquired deformity of ankle and foot documented in this encounter [facility] HealthcareEvaluation note* Diagnosis Persistent atrial fibrillation (Multi)- Primary Atrial fibrillation High risk medication use documented in this encounter [facility] Work Phone: Evaluation note* Diagnosis High risk medication use Persistent atrial fibrillation (Multi) Atrial fibrillation documented in this encounter [facility] Work Phone: History general Narrative - Reported* Type Description Date Medical History [place] Medical HistoryDMMedical HistoryHTNSurgical HistorycholecystectomySurgical Historyback surgerySurgical Historyelbow surgerySurgical Historycataracts, bilaterallySurgical HistoryT & AHospitalization Historysee aboveHospitalization HistoryMI1-2019 [facility] [place] Other History of Present illness Narrative* Is [...] advised to repeat lab work as ordered [facility] 250 DO Work Phone: History of Present [...] 5. 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 Unfortunately he did not tolerate Eliquis and this was discontinued. Patient did not bring his medication with him. He reports he was in the hospital in [place] in [place] after a stroke. Hedoes not know if [...] 4. I to retrieve his record from [place] * 5. I advised the patient TO bring his medication with him and tried to write things down concerninghis memory does not appears to be good and he has no good social support system [facility] 250 DO Work Phone: History of Present [...] has not been using prescribed or recommended nzsw-uwa-caggsrp cream with negative improvement. Patient has history [...] and negative PT pedal pulses NEURO: 5.07 Bertrand Nacho monofilament test diminished to digits and forefoot bilaterally 125Hz tuning fork diminished to 1st MPJ bilaterally ORTHO: Positive pain on palpation to toenails of the left 1,2,3,4,5 toes and right 1,2,3,4,5 toes +4/5dorsiflexion right ankle ASSESSMENT 1. Diabetes 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, unspecified whether long 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 use (HCC) 2. Pain due to [...] . Marciano Hi DPM documented [facility] (narrative)No reason for referral information [facility] Work Phone: Summary Purpose Family History [...] Procedures ECG 12 Lead Veronica Liz MD [address] [place] [address] 2, [place] [phone] Referral IDStatusReasonStart DateExpiration DateVisits RequestedVisits [id number] [id number] / ProceduresReferred By ContactReferred To ContactCardiology Diagnoses Single vessel coronary disease Essential hypertension Procedures Follow Up In Cardiology Veronica Liz MD [address] [facility] [address], [place] [phone] Veronica Liz MD [address] [facility] [address], [place] [phone] Referral IDStatusReasonStart DateExpiration DateVisits RequestedVisits [id number]/9/202311/8/860971EmrhotsnxLfkstzray / Procedures Referred By ContactReferred To ContactRadiology Diagnoses Cerebrovascular accident (CVA), unspecified mechanism (HCC) Procedures CT HEAD WO CONTRAST Alexander Grey, PRINCIPAL SYSTEMS ENGINEER - TIN CAN FEEDER [address] [place] [address] Referral IDStatusReasonStart DateExpiration DateVisits RequestedVisits [id number]/29/20229/29/202311 Additional Source Comments (unrecognized sect ion and [...] section and content) DATE CREATED AUTHOR 06/11/2018 [facility] DATE CREATED AUTHOR AUTHOR'S ORGANIZ ATION 12/17/2021 [facility] DATE CREATED AUTHOR AUTHOR'S ORGANIZ ATION 05/18/2022 [facility] DATE CREATED AUTHOR AUTHOR'S ORGANIZ ATION 06/06/2022 [facility] DATE CREATED AUTHOR AUTHOR'S ORGANIZ ATION 08/07/2022 [facility] DATE CREATED AUTHOR AUTHOR'S ORGANIZ ATION 11/05/2024 [facility] EPIC DATE CREATED AUTHOR AUTHOR'S ORGANIZ ATION 11/25/2024 [facility] DATE CREATED AUTHOR AUTHOR'S ORGANIZ ATION 12/23/2024 [facility] DATE CREATED AUTHOR AUTHOR'S ORGANIZ ATION 01/14/2025 [facility] DATE CREATED AUTHOR AUTHOR'S ORGANIZ ATION 01/18/2025 [facility] REASON FOR VISIT (unrecogniz ed section and content) ReasonCommentsFollow-up6 monthSpecialtyDiagnoses / ProceduresReferred By Contact Referred To Contact Diagnoses Persistent atrial fibrillation (CMS/HCC) Procedures ECG 12 Lead Veronica Liz MD [address] [facility] [address], [address] [address] Referral IDStatusReasonStart DateExpiration DateVisits RequestedVisits [id number]-bp2 monthsSpecialtyDiagnoses / ProceduresReferred By ContactReferred To Contact Cardiology Diagnoses Single vessel coronary disease Essential hypertension Procedures Follow Up In Cardiology Veronica Liz MD [address], [address] [address] Veronica Liz MD [address] [facility] [address], [place] [address] Referral IDStatusReasonStart DateExpiration DateVisits RequestedVisits [id number]/9/202311/8/540174ChrribNemmayrnTglcgqn CareNon DM NailsSpecialtyDiagnoses / ProceduresReferred By ContactReferred To Contact Cardiology Diagnoses Persistent atrial fibrillation (Multi) Procedures Follow Up In Cardiology Veronica Liz MD [address] [facility] [address], [place] [address] Phone: tel: fax: Veronica Liz MD [address] [place] [address] 2, [place] [address] Phone: tel: fax: Referral IDStatusReasonStart DateExpiration DateVisits RequestedVisits [id number]/9/20245/[id number] CareNon dm nail careReasonNortheast Regional Medical CentermentsW[facility] 04/06 TIA expressive aphasiaSpecialtyDiagnoses / ProceduresReferred By ContactReferred To Contact Diagnoses Persistent atrial fibrillation (Multi) Procedures ECG 12 Lead Veronica Liz MD [address] [facility] [address], [place] [address] Phone: tel: fax: Referral IDStatusReasonStart DateExpiration DateVisits RequestedVisits [id number]/29/20251/[id number]-ee5 months Persistent atrial fibrillation (MultiSpecialtyDiagnoses / ProceduresReferred By ContactReferred To ContactCardiology Diagnoses Single vessel coronary disease Procedures Follow Up In Cardiology Veronica Liz MD [address] [place] [address] 2, [place] [address] Phone: tel: fax: Veronica Liz MD [address] [place] [address] 2, [place] [address] Phone: tel: fax: Referral IDStatReasonStbarrington DateExpiration DateVisits RequestedVisits [id number]/7/202411/7/046308MqfbyzMrqlfkhvLzggqre CareReason CommentsEKG visitSpecialtyDiagnoses / ProceduresReferred By ContactReferred To Contact Diagnoses High risk medication use Persistent atrial fibrillation (Multi) Procedures ECG 12 Lead Veronica Liz MD [address] [place] [address] 2, [place] [address] Phone: tel: fax: Referral IDStatReasonStbarrington DateExpiration DateVisits RequestedVisits [id number]/6/20258/093980KtmqjrWrodwtmmZdmjwlmg ECG2 week EKG follow up for Persistent atrial fibrillationSpecialtyDiagnoses / Procedures Referred By ContactReferred To Contact Diagnoses High risk medication use Persistent atrial fibrillation (Multi) Procedures ECG 12 Lead Veronica Liz MD [address] [place] [address], [place] [address] Phone: tel: fax: Referral IDStatReasonStbarrington DateExpiration DateVisits RequestedVisits [id number]/20/20258/20/202611 Ordered Prescriptions (unrec ognized section and content) PrescriptionSigDispensedRefillsStart DateEnd Date cefdinir (OMNICEF) 300 MG capsule Take 1 capsule by mouth every 12 hours for 8 doses 8 capsule amiodarone (CORDARONE) 200 MG tablet Take 1 tablet by mouth daily 90 tablet amiodarone (CORDARONE) 200 MG tablet Take 1 tablet by mouth 2 times daily for 9 doses 9 tablet tamsulosin (FLOMAX) 0.4 MG capsule Take 1 capsule by mouth daily 30 capsule metoprolol tartrate (LOPRESSOR) 25 MG tablet Take 1 tablet by mouth 2 times daily 60 tablet lisinopril (PRINIVIL;ZESTRIL) 10 MG tablet Take 1 tablet by mouth daily 30 tablet Scheduled Active and Recently Administ ered Medications (unrecognized section and content) Medication Order/ amiodarone (CORDARONE) 150 mg in dextrose 5 [...] on Kimmie 11/28/21 at 2100, Until Discontinued * 2053 (Given [...] RN) * 0848 (Given - Provider: Little Treadwell, JUAN) * 2020 (Given - Provider: Jono Serrano RN) * 0847 (Given - Provider: Reese Schofield, JUAN) * 2099 (Due) enoxaparin Sodium (LOVENOX) injection 30 mg 30 mg, SubCUTAneous, 2 TIMES DAILY, First dose on 11/29/21 at 1030, Until Discontinued, Indication of Use: Prophylaxis-DVT/PE * 0942 (Given - Provider: Huang Gurrola RN) * 2053 (Given - Provider: Jono Serrano RN) * 0847 (Given - Provider: Little Treadwell, JUAN) * 2020 (Given - Provider: Jono Serrano RN) * 0846 (Given - Provider: Reese Schofiedl, JUAN) * 2099 (Due) insulin lispro (HUMALOG) injection [...] Reason: Order parameters not met - Comment: gd=548) * 1203 (Not Given - Provider: Huang [...] 0847 (Given - Provider: Reese Schofield, RN) tamsulosin (FLOMAX) capsule 0.4 mg 0.4 mg, Oral, DAILY, First dose on Thu12/01/21 at 2100, Until Discontinued, Do not crush or break. * 0936 (Given - Provider: Huang Gurrola RN) * 0847 (Given - Provider: Little Treadwell RN) * 0847 (Given - Provider: Reese Schofield, RN) Medication Order// 0.9 % sodium chloride infusion (CANCELED) IntraVENous, [...] RN) * 1121 (Stopped - Provider: Little Treadwell RN) Medication Order// acetaminophen (TYLENOL) tablet 650 mg 650 mg, Oral, EVERY 4 HOURS PRN, Starting on Kimmie 11/28/21 at 0317, Until Discontinued, Pain Mild (1-3), Fever, Fever >100.5 (38 C), Maximum dose of acetaminophen is 4000 mg from all sources in 24 hours. * 0638 (Given - Provider: Charo Rudd, RN) * 0123 (Given - Provider: Jono Serrano, RN) * 0846 (Given - Provider: Little Treadwell, JUAN) * 2253 (Given - Provider: Jono Serrano, RN) * 0735 (Given - Provider: Reese Schofield, RN) * 1223 (Given - Provider: Reese Schofield, JUAN) dextrose 10 % infusion IntraVENous, [...] 60 * 0638 (Given - Provider: Charo Rudd, JUAN) loperamide (IMODIUM) capsule 2 mg 2 mg, Oral, 4 TIMES DAILY PRN, Starting on Thu12/02/21 at 1543, Until Discontinued, Diarrhea, Aftereach loose stool. metoprolol (LOPRESSOR) injection 5 mg 5 mg, IntraVENous, EVERY 6 HOURS PRN, 3 doses, Starting on Thu12/02/21 at 0301, Until Discontinued,High Blood Pressure, HR >140 * 0307 (Given - Provider: Charo Rudd, JUAN) [...] EVERY 8 HOURS PRN, Starting on 12/02/21 [id number], Until Discontinued, Bladder Spasms, Note: Additive effect [...] DateEnd Date Valente Tobin DO [address] [place] [phone] PCP - General03/23/99Team MemberRelationshipSpecialtyStart DateEnd Date Unallocated, Godwin Ojeda MD [facility] [place] [address] PCP - [facility]06/04/23Team MemberRelationshipSpecialtyStart DateEnd Date Unallocated, Godwin Ojeda MD [facility] [place] [address] PCP - [facility]06/04/23Team MemberRelationshipSpecialtyStart DateEnd Date Veronica Liz MD [address] [place] [address] 2, [facility] [address] [place] [address] PCP - [facility] Attributed Provider03/23/23Team MemberRelationshipSpecialtyStart DateEnd Date Veronica Liz MD [address] [facility] [address], [address] [place] [address] PCP - [facility] Attributed Provider03/23/23 Zachariah Ochoa MD [address] [place] [address] PCP - [facility]04/20/24Team MemberRelationshipSpecialtyStart DateEnd Date Zachariah Ochoa MD [address] [place] [address] PCP - [facility]04/20/24Te MemberRelationshipSpecialtyStart DateEnd Date Zachariah Ochoa MD [address] [place] [address] PCP - [facility]04/20/24Te MemberRelationshipSpecialtyStart DateEnd Date Zachariah Ochoa MD [address] [place] [address] PCP - [facility]04/20/24 Team [...] BE BASED ON THE PRIMARY CLINICAL RECORDS. [facility]. provides no warranty or guarantee of the accuracy or completeness of information in this document.
== END 2025-01-17 14:09 | disposition home or self-care (01) ==
LOC: ER 09:19 → MS 11:06
PROVIDERS: Admitting Provider Student in an Organized Health Care Education/Training Program; Emergency Provider Student in an Organized Health Care Education/Training Program; PCP Family Medicine; Visit Provider Internal Medicine
DX: J18.8 Other pneumonia, unspecified organism (principal); S22.32XA Fracture of one rib, left side, initial encounter for closed fracture; W18.39XA Other fall on same level, initial encounter; M21.372 Foot drop, left foot; M21.371 Foot drop, right foot; R91.8 Other nonspecific abnormal finding of lung field; J44.0 Chronic obstructive pulmonary disease with (acute) lower respiratory infection; I48.19 Other persistent atrial fibrillation; E55.9 Vitamin D deficiency, unspecified; I69.354 Hemiplegia and hemiparesis following cerebral infarction affecting left non-dominant side; Z87.891 Personal history of nicotine dependence; R59.1 Generalized enlarged lymph nodes; N18.9 Chronic kidney disease, unspecified; I12.9 Hypertensive chronic kidney disease with stage 1 through stage 4 chronic kidney disease, or unspecified chronic kidney disease; N17.9 Acute kidney failure, unspecified
CPT/HCPCS: 36415; 71101; 80048; 80076; 82306; 82948; 83735; 84484; 85025; 85027; 87045; 87046; 87427; 87493; 93005; 94761; 96365; 96366; 96367; 96368; 96372; 96375; 97161; 97165; 99285; G0378; J0696; J1171; J1644; J1650; J2543

== ENCOUNTER 2025-01-23 10:53 | Emergency (ER) | payer MEDICARE, SELFPAY ==
--- OUTSIDE RECORDS SUMMARY | 2025-01-12 15:05 | XMS_ITS | Continuity of Care Document ---
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 Name Role Phone MargaritaRaphael Primary Care Physician Encounter [email or web address] [id number] Date(s): 01/12/25 - 01/12/[address] [address] Encounter Diagnosis Neck strain(Discharge Diagnosis) - 01/12/25 Contusion of rib on left side(Discharge Diagnosis) - 01/12/25 KYLE (acute kidney injury)(Discharge Diagnosis) - 01/12/25 Mass of left lung(Discharge Diagnosis) - 01/12/25 Left against medical advice(Discharge Diagnosis) - 01/12/25 Accidental fall(Discharge Diagnosis) - 01/12/25 Discharge Disposition: Left Against Medical Advice Attending Physician: Faustino Wiley MD Encounter Type: Emergency Allergies, Adverse Reactions, Alerts SubstanceCriticalitySeverityReactionReaction SeverityStatusCoconut OilNausea Active Results Laboratory List NameDateABO/Rh01/12/25Antibody Bateeg19/23/25Basic Metabolic Panel (BMP)01/12/25 CBC w/ Auto Diff01/12/25Ethanol Level (Alcohol Level)01/12/25Hepatic Function Panel01/12/25Lactic Acid01/12/25Lipase Level01/12/25PT & PTT01/12/25Troponin 01/12/25eGFR01/12/25 Most recent to oldest [Reference Range]:1ABO/RhA POS *Unknown* (01/12/25 1:53 PM)ABSC Gel InterpNegative (01/12/25 1:53 PM)INR1.141 *NA* (01/12/25 1:53 PM)A/G Ratio [1.1-2.2]1.1 (01/12/25 1:53 PM)BUN/Creat Ratio [10-20]9 *LOW* (01/12/25 1:53 PM)AGAP [6-16 mEq/L]10 mEq/L (01/12/25 1:53 PM)Albumin Lvl [3.3-5.0 gm/dL]3.7 gm/dL (01/12/25 1:53 PM)Alk Phos [21-98 Int._Unit/L]130 Int._Unit/L *HI* (01/12/25 1:53 PM)ALT [6-46 Int._Unit/L]12 Int._Unit/L (01/12/25 1:53 PM)AST [5-43 Int._Unit/L]15 Int._Unit/L (01/12/25 1:53 PM)Basophil Auto [0.0-2.0 %]0.5 % (01/12/25 1:53 PM)Bili Direct [0.0-0.4 mg/dL]0.1 mg/dL (01/12/25 1:53 PM)Bili Total [0.0-1.1 mg/dL]0.9 mg/dL (01/12/25 1:53 PM)CO2 [21-31 mmol/L]29 mmol/L (01/12/25 1:53 PM)Eos Auto [0.0-8.0 %]3.1 % (01/12/25 1:53 PM)Ethanol Lvl [<=11 mg/dL]<10 mg/dL (01/12/25 1:53 PM)Glucose Lvl [55-199 mg/dL]148 mg/dL (01/12/25 1:53 PM)Hct [37.7-49.0 %]31.4 % *LOW* (01/12/25 1:53 PM)Hgb [13.5-17.5 gm/dL]11.0 gm/dL *LOW* (01/12/25 1:53 PM)Lactic Acid Lvl [0.5-2.2 mmol/L]1.0 mmol/L (01/12/25 1:53 PM)Lipase Lvl [13-58 unit/L]22 unit/L (01/12/25 1:53 PM)Lymph Auto [14.0-50.0 %]9.4 % *LOW* (01/12/25 1:53 PM)PT [9.4-12.5 second(s)]12.8 second(s)2 *HI* (01/12/25 1:53 PM)PTT [25.1-36.5 second(s)]68.0 second(s)3 *HI* (01/12/25 1:53 PM)RBC [4.3-5.9 E12/L]3.2 E12/L *LOW* (01/12/25 1:53 PM)RDW [10.9-14.2 %]17.6 % *HI* (01/12/25 1:53 PM)Sodium Lvl [135-145 mmol/L]134 mmol/L *LOW* (01/12/25 1:53 PM)Total Protein [6.0-7.8 gm/dL]7.0 gm/dL (01/12/25 1:53 PM)Troponin HS [15.90-38.40 pg/mL]5.10 pg/mL4 *LOW* (01/12/25 1:53 PM)MCH [27.0-34.0 pg]34.1 pg *HI* (01/12/25 1:53 PM)MCHC [31.4-36.0 gm/dL]35.0 gm/dL (01/12/25 1:53 PM)MCV [80.0-100.0 fL]97.5 fL (01/12/25 1:53 PM)Pope Auto [4.0-14.0 %]7.5 % (01/12/25 1:53 PM)MPV [6.4-10.8 fL]7.2 fL (01/12/25 1:53 PM)Neutro Auto [36.0-75.0 %]79.5 % *HI* (01/12/25 1:53 PM)BUN [5-21 mg/dL]15 mg/dL (01/12/25 1:53 PM)Calcium Lvl [8.9-11.1 mg/dL]8.5 mg/dL *LOW* (01/12/25 1:53 PM)Platelet [150.0-500.0 E9/L]297.0 E9/L (01/12/25 1:53 PM)Potassium Lvl [3.5-5.3 mmol/L]4.6 mmol/L (01/12/25 1:53 PM)WBC [4.0-11.0 E9/L]8.9 E9/L (01/12/25 1:53 PM)Chloride [101-111 mmol/L]100 mmol/L *LOW* (01/12/25 1:53 PM)Bili Indirect [0.1-0.9 mg/dL]0.8 mg/dL (01/12/25 1:53 PM)Pope Absolute [0.2-1.0 E9/L]0.7 E9/L (01/12/25 1:53 PM)Eos Absolute [0.0-0.5 E9/L]0.3 E9/L (01/12/25 1:53 PM)Basophil Absolute [0.0-0.2 E9/L]0.0 E9/L (01/12/25 1:53 PM)Neutro Absolute [2.0-7.5 E9/L]7.1 E9/L (01/12/25 1:53 PM)Lymph Absolute [1.0-4.0 E9/L]0.8 E9/L *LOW* (01/12/25 1:53 PM)eGFR [>=59 mL/min/1.73 m2]44 mL/min/1.73 m2 *LOW* (01/12/25 1:53 PM)Globulin [1.4-4.0 gm/dL]3.3 gm/dL (01/12/25 1:53 PM)Creatinine [0.5-1.3 mg/dL]1.6 mg/dL *HI* (01/12/25 1:53 PM) 1Interpretive Data: INR results are specifically intended to assess patients stabilized on long-term Anticoagulation therapy suggested INR???s ???Less Intensive Anticoagulation?? 2.0 ??? 3.0 Conventional Range 3.0 ??? 4.5 2Interpretive Data: 15 days - 4 weeks 1 - 5 months 6 -11 months 1-5 years 6-10 years 11 -17 years Mean: 11.2?? (9.5-12.6) Mean: 11.0?? (9.7-12.8) Mean: 11.0 (9.8-13.0) Mean: 11.3 (9.9-13.4) Mean: 11.7 (10.0-14.6) Mean: 11.8? (10.0 - 14.1) Pediatric Reference ranges were obtained from a study by shaquille Purcell al. prepared from 1437 samples obtained at 7 different centers using the same coagulation reagent and instrumentation as [facility]. Currently there are no coagulation studies available worldwide for children to 14 days, andno normal ranges. 3Interpretive Data: Parameter 15 days -? 4 weeks 1 - 5 months 6 - 11 months 1 - 5 years 6 - 10 years 11 - 17 years PTT Mean: 35.4 (27.6-45.6) Mean: 33.5 (24.8-40.7) Mean: 32.4 (25.1-40.7) Mean: 31.6 (24.0-39.2) Mean: 31.6 (26.9-38.7) Mean: 31.0 (24.6-38.4) Pediatric Reference ranges were obtained from a study by shaquille Purcell al. prepared from 1437 samples obtained at 7 different centers using the same coagulation reagent and instrumentation as [facility]. Currently there are no coagulation studies available worldwide for children to 14 days, andno normal ranges. Heparin therapeutic range (represented by Anti-Factor Xa activity of 0.2 - 0.4 U/mL) corresponds to PTT of 56.6 - 109.0 sec. 4Interpretive Data: The 95% CI (Confidence Interval) PPV (Positive Predictive Value) for myocardial infarction in females is 38 pg/mL, in males 51 pg/mL. The results should be used in conjunction withclinical conditions of myocardial infarction. (Access High Sensitivity Troponin I Instructions For Use, Vipin Kane, October 2017) Social History Social History TypeResponseSmoking StatusFormer smoker, quit more than 30 days ago; Type: Cigarettes entered on: 01/12/25Birth SexMaleSex RepresentationMale (finding) Hospital Discharge Instructions Patient Education 01/12/2025 16:09:43 Rib Contusion Rib Contusion A rib contusion is a deep bruise on the rib area. Contusions are the result of a blunt trauma that causes bleeding and injury to the tissues under the skin. A rib contusion may involve bruising of the ribs and of the skin and muscles in the area. The skin over the contusion may turn blue, purple, or yellow. Minor injuries result in a painless contusion. More severe contusions may be painful and swollen for a few weeks. What are the causes? This condition is usually caused by a hard, direct hit to an area of the body. This often occurs while playing contact sports. What are the signs or symptoms? Symptoms of this condition include: ??? Swelling and redness of the injured area. ??? Discoloration of the injured area. ??? Tenderness and soreness of the injured area. ??? Pain with or without movement. ??? Pain when breathing in. How is this diagnosed? This condition may be diagnosed based on: ??? Your symptoms and medical history. ??? A physical exam. ??? Imaging tests???such as an X-ray, CT scan, or MRI???to determine if there were internal injuries or broken bones (fractures). How is this treated? This condition may be treated with: ??? Rest. This is often the best treatment for a rib contusion. ??? Ice packs. This reduces swelling and inflammation. ??? Deep-breathing exercises. These may be recommended to reduce the risk for lung collapse and pneumonia. ??? Medicines. Kqxo-egz-vbsklhc or prescription medicines may be given to control pain. ??? Injection of a numbing medicine around the nerve near your injury (nerve block). Follow these instructions at home: Medicines ??? Take dgiw-xtc-mnirhzq and prescription medicines only as told by your health care provider. ??? Ask your health care provider if the medicine prescribed to you: ??? Requires you to avoid driving or using machinery. ??? Can cause constipation. You may need to take these actions to prevent or treat constipation: ??? Drink enough fluid to keep your urine pale yellow. ??? Take qpzj-awb-waqkvmz or prescription medicines. ??? Eat foods that are high in fiber, such as beans, whole grains, and fresh fruits and vegetables. ??? Limit foods that are high in fat and processed sugars, such as fried or sweet foods. Managing pain, stiffness, and swelling If directed, put ice on the injured area. To do this: ??? Put ice in a plastic bag. ??? Place a towel between your skin and the bag. ??? Leave the ice on for 20 minutes, 2???3 times a day. ??? Remove the ice if your skin turns bright red. This is very important. If you cannot feel pain, heat, or cold, you have a greater risk of damage to the area. Activity ??? Rest the injured area. ??? Avoid strenuous activity and any activities or movements that cause pain. Be careful during activities, and avoid bumping the injured area. ??? Do not lift anything that is heavier than 5 lb (2.3 kg), or the limit that you are told, until your health care provider says that it is safe. General instructions ??? Do not use any products that contain nicotine or tobacco, such as cigarettes, e-cigarettes, andchewing tobacco. These can delay healing. If you need help quitting, ask your health care provider. ??? Do deep-breathing exercises as told by your health care provider. ??? If you were given an incentive spirometer, use it every 1???2 hours while you are awake, or as recommended by your health care provider. This device measures how well you are filling your lungs with each breath. ??? Keep all follow-up visits. This is important. Contact a health care provider if you have: ??? Increased bruising or swelling. ??? Pain that is not controlled with treatment. ??? A fever. Get help right away if you: ??? Have difficulty breathing or shortness of breath. ??? Develop a continual cough, or you cough up thick or bloody mucus from your lungs (sputum). ??? Feel nauseous or you vomit. ??? Have pain in your abdomen. These symptoms may represent a serious problem that is an emergency. Do not wait to see if the symptoms will go away. Get medical help right away. Call your local emergency services (911 in the [place] Do not drive yourself to the hospital. Summary ??? A rib contusion is a deep bruise on your rib area. Contusions are the result of a blunt trauma that causes bleeding and injury to the tissues under the skin. ??? The skin over the contusion may turn blue, purple, or yellow. Minor injuries may cause a painless contusion. More severe contusions may be painful and swollen for a few weeks. ??? Rest the injured area. Avoid strenuous activity and any activities or movements that cause pain. This information is not intended to replace advice given to you by your health care provider. Make sure you discuss any questions you have with your health care provider. Document Revised: 06/13/2020 Document Reviewed: 06/13/2020 [employer] Patient Education ?? 2023 [facility]. 01/12/2025 16:09:43 Cervical Strain and Sprain Rehab Cervical Strain and Sprain Rehab Ask your health care provider which exercises are safe for you. Do exercises exactly as told by your health care provider and adjust them as directed. It is normal to feel mild stretching, pulling, tightness, or discomfort as you do these exercises. Stop right away if you feel sudden pain or your pain gets worse. Do not begin these exercises until told by your health care provider. Stretching and gcghe-nl-houiya exercises Cervical side bending 1. Using good posture, sit on a stable chair or stand up. 2. Without moving your shoulders, slowly tilt your left / right ear to your shoulder until you feela stretch in the neck muscles on the opposite side. You should be looking straight ahead. 3. Hold for seconds. 4. Repeat with the other side of your neck. Repeat times. Complete this exercise times a day. Cervical rotation 1. Using good posture, sit on a stable chair or stand up. 2. Slowly turn your head to the side as if you are looking over your left / right shoulder. ??? Keep your eyes level with the ground. ??? Stop when you feel a stretch along the side and the back of your neck. 3. Hold for seconds. 4. Repeat this by turning to your other side. Repeat times. Complete this exercise times a day. Thoracic extension and pectoral stretch 1. Roll a towel or a small blanket so it is about 4 inches (10 cm) in diameter. 2. Lie down on your back on a firm surface. 3. Put the towel in the middle of your back across your spine. It should not be under your shoulderblades. 4. Put your hands behind your head and let your elbows fall out to your sides. 5. Hold for seconds. Repeat times. Complete this exercise times a day. Strengthening exercises Upper cervical flexion 1. Lie on your back with a thin pillow behind your head or a small, rolled-up towel under your neck. 2. Gently tuck your chin toward your chest and nod your head down to look toward your feet. Do not lift your head off the pillow. 3. Hold for seconds. 4. Release the tension slowly. Relax your neck muscles completely before you repeat this exercise. Repeat times. Complete this exercise times a day. Cervical extension 1. Stand about 6 inches (15 cm) away from a wall, with your back facing the wall. 2. Place a soft object, about 6???8 inches (15???20 cm) in diameter, between the back of your head and the wall. A soft object could be a small pillow, a ball, or a folded towel. 3. Gently tilt your head back and press into the soft object. Keep your jaw and forehead relaxed. 4. Hold for seconds. 5. Release the tension slowly. Relax your neck muscles completely before you repeat this exercise. Repeat times. Complete this exercise times a day. Posture and body mechanics Body mechanics refer to the movements and positions of your body while you do your daily activities. Posture is part of body mechanics. Good posture and healthy body mechanics can help to relieve stress in your body's tissues and joints. Good posture means that your spine is in its natural S-curve position (your spine is neutral), your shoulders are pulled back slightly, and your head is not tipped forward. The following are general guidelines for using improved posture and body mechanics in your everydayactivities. Sitting ??? When sitting, keep your spine neutral and keep your feet flat on the floor. Use a footrest, if needed, and keep your thighs parallel to the floor. Avoid rounding your shoulders. Avoid tilting your head forward. ??? When working at a desk or a computer, keep your desk at a height where your hands are slightly lower than your elbows. Slide your chair under your desk so you are close enough to maintain good posture. ??? When working at a computer, place your monitor at a height where you are looking straight aheadand you do not have to tilt your head forward or downward to look at the screen. Standing ??? When standing, keep your spine neutral and keep your feet about hip-width apart. Keep a slight bend in your knees. Your ears, shoulders, and hips should line up. ??? When you do a task in which you fingernail sculpturer one place for a long time, place one foot up on a stable object that is 2???4 inches (5???10 cm) high, such as a footstool. This helps keep your spine neutral. Resting When lying down and resting, avoid positions that are most painful for you. Try to support your neck in a neutral position. You can use a contour pillow or a small rolled-up towel. Your pillow shouldsupport your neck but not push on it. This information is not intended to replace advice given to you by your health care provider. Make sure you discuss any questions you have with your health care provider. Document Revised: 09/29/2022 Document Reviewed: 09/29/2022 [employer] Patient Education ?? 2023 [employer] 01/12/2025 16:09:43 Pulmonary Nodule Pulmonary Nodule A pulmonary nodule is a small, round growth of tissue in the lung. It is sometimes referred to as ashadow or a spot on the lung. Nodules can vary in size, and most measure less than ?? of an inch (10 mm). Nodules bigger than 1.2 inches (3 cm) are called lung masses. A pulmonary nodule is sometimesfound during a routine chest X-ray or while other imaging tests are done to check for other problems. Pulmonary nodules can be either noncancerous (benign) or cancerous (malignant). Most are noncancerous. Smaller nodules in people who do not smoke and who do not have any other risk factors for lung cancer are more likely to be noncancerous. Larger, irregular nodules in people who smoke or who have a strong family history of lung cancer are more likely to be cancerous. What are the causes? This condition may be caused by: ??? A bacterial, fungal, or viral infection, such as tuberculosis. The infection is usually an old and inactive one. ??? Cancerous tissue, such as lung cancer or a cancer in another part of the body that has spread to the lung. ??? A noncancerous mass of tissue. ??? Inflammation from conditions such as rheumatoid arthritis. ??? Abnormal blood vessels in the lungs. What are the signs or symptoms? Usually, there are no symptoms of this condition. If symptoms appear, they are usually related to the underlying cause. For example, if the condition is caused by an infection, you may have a cough or a fever. How is this diagnosed? This condition is usually diagnosed with an X-ray or CT scan. To help determine whether a pulmonarynodule is benign or malignant, your health care provider will: ??? Take your medical history. ??? Perform a physical exam. ??? Order tests. These may include: ??? Chest X-rays. ??? A CT scan. This test shows smaller pulmonary nodules more clearly and with more detail than an X-ray. ??? A positron emission tomography (PET) scan. This test is done to check if a nodule is cancerous.During the test, a small amount of a radioactive substance is injected into the bloodstream. Then apicture is taken. ??? Biopsy to evaluate for cancer or confirm a diagnosis. This procedure involves removing a tissuesample from the nodule by inserting a needle through the chest, placing a scope down into the lung,or doing open surgery. ??? A skin test called a tuberculin test. This test is done to check if you have been exposed to the germ that causes tuberculosis. ??? Blood tests. How is this treated? Treatment for this condition depends on whether the pulmonary nodule is malignant or benign. It also depends on your risk of getting cancer. Noncancerous nodules usually do not need to be treated, but they may need to be monitored with CT scans. If a CT scan shows that the pulmonary nodule got bigger, more tests may be done. Nodules that are found to be cancerous after a biopsy require treatment depending on the type and stage of the cancer. You will need more diagnostic tests, such as CT and PET scans, to determine the stage of the cancer. Treatments for cancer can include: ??? Surgery. ??? Radiation therapy. ??? Chemotherapy. ??? Immunotherapy. Some nodules need to be removed. If you need a nodule removed, you may have a procedure called a thoracotomy. During the procedure, your health care provider will make an incision in your chest and remove the part of the lung where the nodule is located. Follow these instructions at home: ??? Take cctu-nyt-ehjcnkc and prescription medicines only as told by your health care provider. ??? Do not use any products that contain nicotine or tobacco. These products include cigarettes, chewing tobacco, and vaping devices, such as e-cigarettes. If you need help quitting, ask your health care provider. ??? Keep all follow-up visits. This is important. Contact a health care provider if: ??? You have pain in your chest, back, or shoulder. ??? You are short of breath or have trouble breathing when you are active. ??? You develop a cough, or you develop hoarseness for an unexplained reason. ??? You feel sick or unusually tired. ??? You do not feel like eating or you lose weight without trying. ??? You develop chills or night sweats. ??? You need two or more pillows to sleep on at night. ??? You have any of these problems: ??? A fever and symptoms that suddenly get worse. ??? A fever or persistent symptoms for more than 2???3 days. Get help right away if: ??? You cannot catch your breath. ??? You have sudden chest pain. ??? You start making high-pitched whistling sounds when you breathe, most often when you breathe out (you wheeze). ??? You cannot stop coughing, or you cough up blood or bloody mucus from your lungs (sputum). ??? You become dizzy or feel like you may faint. These symptoms may represent a serious problem that is an emergency. Do not wait to see if the symptoms will go away. Get medical help right away. Call your local emergency services (911 in the [place] Do not drive yourself to the hospital. Summary ??? A pulmonary nodule is a small, round growth of tissue in the lung. Most pulmonary nodules are noncancerous. ??? Common causes of pulmonary nodules include infection, inflammation, and noncancerous growths. ??? This condition is usually diagnosed with an X-ray or CT scan. ??? Treatment for this condition depends on whether the pulmonary nodule is malignant or benign. Italso depends on your risk of getting cancer. ??? If a nodule is found to be cancerous, you will need specific diagnostic tests and treatment options as told by your health care provider. This information is not intended to replace advice given to you by your health care provider. Make sure you discuss any questions you have with your health care provider. Document Revised: 09/26/2020 Document Reviewed: 09/26/2020 [employer] Patient Education ?? 2023 [facility]. 01/12/2025 16:09:43 Acute Kidney Injury, Adult Acute Kidney Injury, Adult Acute kidney injury is a sudden decrease in the ability of the kidneys to do what they are supposedto do. The kidneys are a pair of organs that: ??? Make urine. ??? Make hormones. ??? Keep the right amount of fluids and chemicals in the body. This condition ranges from mild to severe. Over time, it may turn into long-term (chronic) kidney disease. Finding and treating the injury early may keep it from turning into chronic kidney disease. What are the causes? Common causes of this condition include: ??? A problem with blood flow to the kidneys. This may be caused by: ??? Low blood pressure, shock, or severe dehydration. ??? Severe blood loss. ??? Heart and blood vessel disease. ??? Severe sanchez. ??? Liver disease. ??? Direct damage to the kidneys. This may be caused by: ??? Certain medicines or toxins. ??? Kidney disease. ??? Contrast dye used in imaging tests. ??? An infection of the kidney or bloodstream. ??? Problems from surgery. ??? Trauma to the kidney area. ??? Organ failure. This includes heart or liver failure. ??? A sudden block in urine flow. This may be caused by: ??? Cancer. ??? Kidney stones. ??? An enlarged prostate. What increases the risk? You may be more likely to develop this condition if: ??? You are older than 65 years of age. ??? You are female. ??? You are in the hospital. You may be even more at risk if you are very sick. ??? You have certain conditions. These may include: ??? Chronic kidney or liver disease. ??? Diabetes. ??? Heart disease and heart failure. ??? Lung disease. What are the signs or symptoms? This condition may not cause symptoms until it becomes severe. If it does, symptoms may include: ??? Feeling very tired or having trouble staying awake. ??? Nausea or vomiting. ??? Swelling (edema) of the face, legs, ankles, or feet. ??? Pain in your abdomen, back, or along the side of your back (flank). ??? Urine changes. You may: ??? Make little or no urine. ??? Pass urine with a weak flow. ??? Muscle twitches and cramps. These are most often in the legs. ??? Confusion or trouble focusing. ??? Not feeling the urge to eat. ??? Fever. How is this diagnosed? This condition may be diagnosed based on your symptoms and your medical history. You may have a physical exam done. You may also have tests, such as: ??? Blood tests. ??? Urine tests. ??? Imaging tests. ??? A kidney biopsy. This is when a sample of kidney tissue is removed and looked at under a microscope. How is this treated? Treatment depends on the cause and how severe the condition is. In mild cases, treatment may not beneeded. The kidneys may heal on their own. In severe cases, treatment may include: ??? Treating the cause of the kidney injury. This may mean that you have to change your medicines or the doses you take. ??? Getting fluids through an IV tube. ??? Having a flexible tube (catheter) put in. This tube will drain urine and prevent blockages. ??? Trying to keep problems from starting. This may mean not using certain medicines or not having tests done that could cause more injury. In some cases, you may also need: ??? Dialysis or continuous renal replacement therapy (CRRT). This treatment uses a machine to do the job of the kidneys. ??? Surgery. This may be done to repair a damaged kidney. It could also be done to remove a blockage in the urinary tract. Follow these instructions at home: Medicines ??? Take eqia-sfd-brnigwe and prescription medicines only as told by your health care provider. ??? Do not take new medicines unless approved by your health care provider. Many medicines can makekidney damage worse. ??? Do not take vitamin or mineral supplements unless approved by your health care provider. Some of these can make kidney damage worse. Lifestyle ??? Make changes to your diet as told by your health care provider. You may need to eat less protein. ??? Get to, and stay at, a healthy weight. If you need help, ask your health care provider. ??? Start or keep up an exercise plan. Exercise at least 30 minutes a day, 5 days a week. ??? Do not use any products that contain nicotine or tobacco. These products include cigarettes, chewing tobacco, and vaping devices, such as e-cigarettes. If you need help quitting, ask your health care provider. General instructions ??? Keep track of your blood pressure. Tell your health care provider if you notice any changes. ??? Keep your vaccines up to date. Ask your health care provider which vaccines you need. ??? Keep all follow-up visits. Your health care provider will need to monitor your kidneys. Where to find support ??? [place] [employer]: aakp.org ??? [place] [employer]: akfinc.org Where to find more information ??? National Kidney Foundation: kidney.org ??? Medical Education [place]: ??? LifeOptions: lifeoptions.org ??? Kidney School: kidneyschool.org Contact a health care provider if: ??? Your symptoms get worse. ??? You have new symptoms, such as: ??? Headaches. ??? Skin that is darker or presetter operator than normal. ??? Easy bruising. ??? Feeling itchy. ??? Hiccups. ??? Lack of menstrual periods. ??? You have a fever. Get help right away if: ??? You have signs of severe kidney disease, such as: ??? Chest pain. ??? Shortness of breath. ??? Seizures. ??? You have pain or bleeding when you pass urine. ??? You make little or no urine. These symptoms may be an emergency. Get help right away. Call 911. ??? Do not wait to see if the symptoms will go away. ??? Do not drive yourself to the hospital. This information is not intended to replace advice given to you by your health care provider. Make sure you discuss any questions you have with your health care provider. Document Revised: 09/26/2022 Document Reviewed: 09/26/2022 Elsevier Patient Education ?? 2023 [facility]. Follow Up Care 01/12/2025 13:16:54 With:Travis Medellin Address: [facility] [address] [place] [address] [place] [address]- When:01/15/2025 16:01:40 Comments:Please call hematology oncology office for close outpatient follow-up regarding new onset left lungmass as discussed. Continue to monitor symptoms. Return to ED if symptoms worsen or new symptoms arise. With:Raphael Avila Address: [address] [place] [phone] (1) When:01/15/2025 16:02:00 Comments:Please call primary care provider for close outpatient follow-up regarding fall as well as acute kidney injury, rib contusion, neck strain. Please continue to monitor symptoms. Return to ED if symptoms worsen or new symptoms arise. Patient Care team information Care Team Personnel Name: Raphael Avila MD Position: Physician Member Role: Primary Care Physician Address: [address] [place] [id number] Telecom: Care Team Related Persons Name: JORGE ANDUJAR Name: SHIRA ANDUJAR Insurance Providers Guarantor name: Health Plan Information #: 1 Payer: SELF PAY Payer Identifier: [id number] Member Number: NA Group Number: [id number] Subscriber Identifier: [id number] Relationship to Subscriber: self Coverage Type: NA Coverage Verification Date: NA Telecom: NA Address:
--- OUTSIDE RECORDS SUMMARY | 2025-01-16 05:30 | XMS_ITS ---
Author Organization The [facility] [place] Address [address] [place] [address] Care Team Providers Care Sql Application Developer Name Role Phone Desiree Cuellar Primary Care Provider REASON FOR VISIT ER- Left AMA- MASS Encounters Encounter Location Date Provider Diagnosis [facility] [address] [place] [address] 01/16/2025 Desiree Cuellar Plan Of Treatment Next Appt Details Provider Name:Desiree chandler, 01/24/2025 10:30:00 AM, [address] [place], [address], Progress Notes * TABBYCiaranDOB:1945 (79 yo M)Acc No.[id number]:01/16/2025 UNLOCKED PROGRESS NOTE Progress Note Patient: Ciaran LOVE :?Desiree Cuellar ([facility]), CNPDOB:1945 ???Age:79 Y???Sex:MaleDate:01/16/2025Phone:[phone]:[address], [place], [place] Subjective: * Chief Complaints: * 1 . ER- Left AMA- MASS. * Medical History: Objective: * Vitals: Assessment: Plan: * Treatment: * * Electronic signature of Desiree Cuellar NP, ENGRAVER OPTICAL FRAMES.UNLEAVENED DOUGH MIXER.[id number] on 01/23/2025 at 11:16 AM ESTSign off status: PendingVisit Status:?CANCPHONE (Cancelled Phone) * Provider: Shannon Cuellar ([facility]), UNLEAVENED DOUGH MIXER Date: Generated for Printing/Faxing/eTransmitting on:?01/23/2025 11:16 AM EST
--- OUTSIDE RECORDS SUMMARY | 2025-01-17 23:00 | XMS_ITS | Encounter Summary ---
Author Organization [facility] Address [address] [place] [address] Care Team Providers Care Homoeopath Name Role Phone Unavailable Primary Care Provider Unavailabl e Encounter Details DateTypeDepartmentCare Team (Latest Contact Info)Cqwgurjhlqe43/29/2025 - 01/18/2025 11:59 PM EDTHospital Encounter [facility] Radiology External Films [address] [place] [address] Discharge Disposition: Home or Self Care () Social History Tobacco UseTypesPacks/DayYears UsedDateSmoking Tobacco: Never AssessedUT Safety & EnvironmentAnswerDate RecordedFear of Current or Ex-PartnerNot on file 05/14/2023Emotionally AbusedNot on file05/14/2023hysically AbusedNot on file 05/14/2023Sexually AbusedNot on file05/14/2023hysically or Sexually AbusedNot on file05/14/2023Sex and Gender InformationValueDate RecordedSex Assigned at BirthNot on fileLegal IywHgbx4709/18/2021 11:03 PM EDTGender IdentityNot on file Sexual OrientationNot on filedocumented as of this encounter Medications at Time of Discharge MedicationSigDispense QuantityRefillsLast FilledStart DateEnd Date aspirin 81 mg EC tablet Take 81 mg by mouth in the morning.05/30/2020 lisinopril 10 mg tablet Take 5 mg by mouth in the morning.11/04/2023 magnesium oxide (Mag-Ox) 400 mg (241.3 mg magnesium) tablet Take 1 tablet by mouth twice a day./ sotalol (Betapace) 80 mg tablet Take 40 mg by mouth two times daily./08/2025documented as of this encounter Plan of Treatment DateTypeDepartmentCare Team (Latest Contact Info)Kbirfajxhnz47/10/2025 10:00 AM ESTAppointment [facility] Main Operating Room [address] [place] [address] Josefa Shah MD [address] [facility] [place] [address] documented as of this encounter Procedures Procedure NamePriorityDate/TimeAssociated DiagnosisCommentsCT TRANSFER OF OUTSIDE WOAAMIlreqec05/29/2025 12:00 AM EDT documented in this encounter Results * CT transfer of outside films (01/18/2025 12:00 AM EDT)Specimen (Source) Anatomical Location / LateralityCollection Method / VolumeCollection Time Received Time Narrative IMAGING - 01/18/2025 10:58 AM EDT This order has been auto-finalized and does not contain a result. Authorizing ProviderResult TypeResult StatusMohamed Alyssa PATEL CT PROCEDURES Final ResultPerforming OrganizationAddressCity/State/ZIP CodePhone Number IMAGING documented in this encounter Visit Diagnoses Not on filedocumented in this encounter
[2025-01-23 10:57] VITALS: BP 182/80; PULSE 60; TEMP 36.8; O2SAT 98; BMI 23.7
--- OUTSIDE RECORDS SUMMARY | 2025-01-23 11:15 | XMS_ITS | Clinical Summary ---
Author Organization [facility] tem Address [id number] [address] [place] [address] Care Team Providers Care Manager Government Name Role Phone Unavailable Primary Care Provider Unavailabl e Social History Tobacco UseTypesPacks/DayYears UsedDateSmoking Tobacco: Never AssessedSex and Gender InformationValueDate RecordedSex Assigned at BirthNot on fileLegal Sex Male10/04/2023 2:13 PM EDTGender IdentityNot on fileSexual OrientationNot on file Plan of Treatment Health MaintenanceDue DateLast DoneCommentsDepression Cvxkggrgg03/03/1959Tobacco Dabnwtkrx19/03/1959DTaP,Tdap and Td Vaccines (1 - Tdap)1965Zoster (Shingles) Vaccine (1 of 2)1996Fall Risk Kqeuznznk12/03/2012RSV ( or age 60+ yrs) (1 - 1-dose 75+ series)2COVID-19 Vaccine ( season)510/, 06/12/2020, 05/21/2020Influenza Ifjrqbr1811/21/2024 03/23/2017 Medical Devices Not on file Insurance
--- OUTSIDE RECORDS SUMMARY | 2025-01-23 11:15 | XMS_ITS | Clinical Summary ---
Author Organization [facility] Address [address] [place] [address] Care Team Providers Care Melangeur Operator Name Role Phone Unavailable Primary Care Provider Unavailabl e Allergies No known active allergies Medications MedicationSigDispense QuantityRefillsLast FilledStart DateEnd DateStatus aspirin 81 mg EC tablet Take 81 mg by mouth in the morning.05/30/2020ctive lisinopril 10 mg tablet Take 5 mg by mouth in the morning.11/04/2023ctive nitroglycerin (Nitrostat) 0.[address] 0.4 mg under the tongue every 5 (five) minutes if needed.Active atorvastatin (Lipitor) 80 mg tablet Take 80 mg by mouth in the morning.Active sotalol (Betapace) 80 mg tablet Take 40 mg by mouth two times daily./ctive magnesium oxide (Mag-Ox) 400 mg (241.3 mg magnesium) tablet Take 1 tablet by mouth twice a day./ctive traMADol (Ultram) 50 mg tablet Take 0.5 tablets by mouth every 6 (six) hours if needed.Active amoxicillin-pot clavulanate (Augmentin) 875-125 mg tablet Take 1 tablet by mouth two times daily.Active ergocalciferol (Vitamin D-2) 200 mcg/mL (8,000 unit/mL) drops Take by mouth 1 (one) time per week. THURSDAYSActive Encounters DateTypeDepartmentCare JoueAqhlohchlrp83/29/2025Orders Only Pulmonary [address] [place] [address] Josefa Shah MD Lung mass (Primary Dx)01/18/2025 - 01/18/2025 11:59 PM EDTHospital Encounter [facility] Radiology External Films [address] [place] [address] Discharge Disposition: Home or Self Care (01)01/18/2025Orders [facility] [address] [place] [address] Aneta Mccray MA from Last 3 Months Social History Tobacco UseTypesPacks/DayYears UsedDateSmoking Tobacco: FormerCigarettes Smokeless Tobacco: Never Tobacco Cessation:Counseling Given: Not Answered Alcohol UseStandard Drinks/WeekCommentsYes0 (1 standard drink = 0.6 oz pure alcohol)OCCUT Safety & EnvironmentAnswerDate RecordedFear of Current or Ex-PartnerNot on file05/14/2023Emotionally AbusedNot on file05/14/2023hysically AbusedNot on file05/14/2023Sexually AbusedNot on file05/14/2023hysically or Sexually AbusedNot on file05/14/2023Sex and Gender InformationValueDate Recorded Sex Assigned at BirthNot on fileLegal PoeKhnv0609/18/2021 11:03 PM EDTGender IdentityNot on fileSexual OrientationNot on file Plan of Treatment DateTypeDepartmentCare Team (Latest Contact Info)Wbtndbjnqhz43/10/2025 10:00 AM ESTAppointment [facility] Main Operating Room [address] [place] [address] Josefa Shah MD [address] [facility] [place] [address] Health MaintenanceDue DateLast DoneCommentsDiabetes: Hemoglobin A1C1946 Medicare Annual Wellness (AWV)1946Diabetes: Retinopathy Screening 1956Depression Uuupojjyi40/03/1959Diabetes: Urine Protein Screening 1965Pneumococcal Vaccine: 50+ Years (1 of 2 - PCV)1965Adult Tetanus 1968Zoster Vaccines (1 of 2)1996Fall Risk Whbpxaael27/03/2012COVID- 19 Vaccine ( season), 06/12/2020, 05/21/2020 Influenza Vaccine (#1)4247VlxfverhctbKmlyizygzzff28/27/2020 Colorectal Cancer ScreeningDiscontinuedCT ColonographyDiscontinuedFIT-DNA DiscontinuedFITDiscontinuedFOBTDiscontinuedHIB VaccinesAged OutNo [...] Procedures Procedure NamePriorityDate/TimeAssociated DiagnosisCommentsCT TRANSFER OF OUTSIDE OIXYKKcyifym32/29/2025 12:00 AM EDT from Last 3 Months [...]
--- OUTSIDE RECORDS SUMMARY | 2025-01-23 11:15 | XMS_ITS | Encounter Summary ---
Author Organization [facility] Address [address] [place] [address] Care Team Providers Care Assistant Broker Name Role Phone Unavailable Primary Care Provider Unavailabl e Encounter Details DateTypeDepartmentCare Team (Latest Contact Info)Qttxzhhjflp41/29/2025Orders Only [facility] [address] [place] [place] [address] Aneta Mccray MA Social History Tobacco UseTypesPacks/DayYears UsedDateSmoking Tobacco: Never AssessedUT Safety & EnvironmentAnswerDate RecordedFear of Current or Ex-PartnerNot on file 05/14/2023Emotionally AbusedNot on file05/14/2023hysically AbusedNot on file 05/14/2023Sexually AbusedNot on file4Physically or Sexually AbusedNot on file05/14/2023Sex and Gender InformationValueDate RecordedSex Assigned at BirthNot on fileLegal IssGvxc1509/18/2021 11:03 PM EDTGender IdentityNot on file Sexual OrientationNot on filedocumented as of this encounter Plan of Treatment DateTypeDepartmentCare Team (Latest Contact Info)Dksepsbcaxx06/10/2025 10:00 AM ESTAppointment [facility] Main Operating Room [address] [place] [address] Josefa Shah MD [address] [facility] [place] [address] documented as of this encounter Results * [...]
--- OUTSIDE RECORDS SUMMARY | 2025-01-23 11:15 | XMS_ITS | Clinical Summary ---
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); Pain due to onychomycosis of toenails of both feet; Right foot drop11/03/2024amboo flowsheet [facility] [address] [place] [address] Marciano Chapman DPM 11/03/2024Travelfrom Last 3 Months Family History RelationNameStatusCommentsFatherDeceasedMotherDeceased Social History Tobacco UseTypesPacks/DayYears UsedDateSmoking Tobacco: UnknownPassive Smoke Exposure: Never Tobacco Cessation:Counseling Given: Yes Alcohol UseStandard Drinks/WeekCommentsYes1 (1 standard drink = 0.6 oz pure alcohol)coffee dailySex and Gender InformationValueDate RecordedSex Assigned at BirthNot on fileLegal WcqDzkn8706/04/2022 6:56 PM EDTGender IdentityNot on file Sexual OrientationNot on file Last Filed Vital Signs Vital SignReadingTime TakenCommentsBlood Iviahztj311/7710 1:51 PM EDT Yqell654601/07/2024 1:51 PM EDTTemperature--Respiratory Eeif055411/03/2024 1:40 PM EDTOxygen Saturation--Inhaled Oxygen Concentration--Pymlpb53.2 kg (212 lb) 11/03/2024 1:40 PM QSIFydtpb070.4 cm (6' 1 )11/03/2024 1:40 PM EDTBody Mass Index27.9711/03/2024 1:40 PM EDT Plan of Treatment Health MaintenanceDue DateLast DoneCommentsMedicare Annual Wellness (AWV) 1946DTaP/Tdap/Td Vaccines (1 - Tdap)4Diabetes: Retinopathy Atkqreomw76/03/1957Diabetes: Urine Protein Vvvftoxxb62/03/1966Pneumococcal Vaccine: 65+ Years (1 of 2 - PCV)1965Diabetes: Hemoglobin A1C02/27/2022 2COVID-19 Vaccine ( season), 06/12/2020, 05/21/2020Influenza Vaccine (#1)ColonoscopyDiscontinued 04/18/2019, 04/18/2019, [...] age to complete this topic SigmoidoscopyDiscontinued Insurance * Guarantor: Ciaran Mcnairmelissa TypeRelation to PatientDate of BirthPhone Billing AddressPersonal/VooziyWyru38[birth year][address] [address] Care Teams Team MemberRelationshipSpecialtyStart DateEnd Date Unallocated, Noms Provider, [address] [facility] [place], [place] [id number] [facility] - [facility]06/04/23
--- OUTSIDE RECORDS SUMMARY | 2025-01-23 11:15 | XMS_ITS | Encounter Summary ---
Author Organization [facility] Address [address] [place] [address] Care Team Providers Care Take Away Attendant Name Role Phone Unavailable Primary Care Provider Unavailabl e Reason for Referral * Hospital - Outpatient (Routine) - AuthorizedSpecialtyDiagnoses / Procedures Referred By ContactReferred To ContactGastroenterology Diagnoses Lung mass Procedures Bronchoscopy with TBBx, EBUS with 3 or more stations Josefa Shah MD [address] [place] [address] Phone: tel: fax: [facility] Invasive [facility] [address] [place] [address] Phone: tel: fax: Referral IDStatusReasonStart DateExpiration DateVisits RequestedVisits [id number] Encounter Details DateTypeDepartmentCare Team (Latest Contact Info)Uhfourynucd82/29/2025Orders Only Pulmonary [address] [place] [address] Josefa Shah MD [address] [place] [address] Lung mass (Primary Dx) Social History Tobacco UseTypesPacks/DayYears UsedDateSmoking Tobacco: Never AssessedUT Safety & EnvironmentAnswerDate RecordedFear of Current or Ex-PartnerNot on file 05/14/2023Emotionally AbusedNot on file05/14/2023hysically AbusedNot on file 05/14/2023Sexually AbusedNot on file05/14/2023hysically or Sexually AbusedNot on file05/14/2023Sex and Gender InformationValueDate RecordedSex Assigned at BirthNot on fileLegal ZwyXzcx6909/18/2021 11:03 PM EDTGender IdentityNot on file Sexual OrientationNot on filedocumented as of this encounter Plan of Treatment DateTypeDepartmentCare Team (Latest Contact Info)Agnfivoalep57/10/2025 10:00 AM ESTAppointment [facility] Main Operating Room [address] [place] [id number] Josefa Shah MD [address] [place] [address] NameTypePriorityAssociated DiagnosesOrder ScheduleBronchoscopy with TBBx, EBUS with 3 or more stationsEndoscopyRoutine Lung mass Expected: 01/18/2025, Expires: 01/18/2026[place] in ORImagingRoutine Lung mass Expected: 01/18/2025 (Approximate), Expires: 01/18/2026documented as of this encounter Visit Diagnoses Diagnosis Lung mass- Primary Swelling, mass, or lump in chest documented in this encounter
--- OUTSIDE RECORDS SUMMARY | 2025-01-23 11:16 | XMS_ITS | Clinical Summary ---
Author Organization [facility] Address [address] [place] [address] Phone Care Team Providers Care Sausage Mixer Name Role Phone Raphael Avila MD Primary Care Provider [phone] Allergies Active AllergyReactionsCriticalityNoted DateCommentsCoconut QswDncez45/09/2023 Medications MedicationSigDispense QuantityRefillsLast FilledStart DateEnd DateStatus aspirin [...] Problems ProblemNoted DateDiagnosed DateBMI 24.0-24.9, adult10/26/2024Prolonged QT lfdaaiby57/06/2025TIA (transient ischemic attack)04/20/2024Stenosis of right carotid tqyzpz2001/28/2024Former hsfkeg3007/30/20230784Xfopgv10/09/2023Essential nuijqueruojr73/09/7796Jubylbkywyclqv99/09/2023ersistent atrial fibrillation 01/29/2023Single vessel coronary mckysyv1601/29/2023High risk medication use 01/29/20233867Mqqvga51/09/2023MI 26.0-26.9,adult01/29/2023 Encounters DateTypeDepartmentCare FoiuZqnqyxkhzyv76/03/2025 2:00 PM EDTAncillary Procedure [address] [place] [address] Kristin Mcmanus LPN High risk medication use; Persistent atrial fibrillation (Multi) Discharge Disposition: Home11/23/20244328Chzoyj92/22/[address] [facility] [address] [place] [address] Irena Lynn LPN Persistent atrial fibrillation (Multi)11/09/2024 2:00 PM EDTAncillary Procedure [address] [place] [address] Clyde Yoo MA Persistent atrial fibrillation (Multi) (Primary Dx); High risk medication use11/09/20246210Jfcqes70/06/2025 2:30 PM EDTOffice Visit [address] [address] Sherlyn Larson MD Persistent atrial fibrillation (Multi) (Primary Dx); Single vessel coronary disease; High risk medication use; Stenosis of right carotid artery; Mixed hyperlipidemia; Essential hypertension; Anemia, unspecified type; Cerebrovascular accident (CVA), unspecified mechanism (Multi); Former smoker; BMI 24.0-24.9, adult; Prolonged QT znhfreuk10/06/2025Travelfrom Last 3 Months Immunizations ImmunizationAdministration DatesNext DueInfluenza, Aqsmtsstswu21/01/2018Pfizer Purple Cap VJQP-MoB-112/,06/12/2020,05/21/2020 Family History Medical HistoryRelationNameCommentsNo Known ProblemsFatherNo Known Problems MotherRelationNameStatusCommentsFatherMother Social History Tobacco UseTypesPacks/DayYears UsedDateSmoking Tobacco: FormerCigarettesQuit: 2019Smokeless Tobacco: Never Tobacco Cessation:Counseling Given: Not Answered Alcohol UseStandard Drinks/WeekCommentsYes2 (1 standard drink = 0.6 oz pure alcohol)occasionallySex and Gender InformationValueDate RecordedSex Assigned at BirthNot on fileLegal PkdRlhf62/26/2022 6:44 PM ESTGender IdentityNot on file Sexual OrientationNot on file Last Filed Vital Signs Vital SignReadingTime TakenCommentsBlood Mdqbyyow693/5809 4:38 PM EDT Dnwkf0543 4:38 PM EDTTemperature--Respiratory Rate--Oxygen Saturation-- Inhaled Oxygen Concentration--Lewpmv91.6 kg (182 lb)11/23/2024 4:38 PM EDTHeight 185.4 cm (6' 1 )11/23/2024 4:38 PM EDTBody Mass Index24.0109 4:38 PM EDT Plan of Treatment DateTypeDepartmentCare Team (Latest Contact Info)Glwgzoodexs63/19/2026 3:00 PM EDTOffice Visit [facility] [address] [address] Sherlyn Larson MD [address] [facility], [place] [address] [place] [address] Health MaintenanceDue DateLast DoneCommentsLipid Panel1946Medicare Annual Wellness Visit (AWV)1946Hepatitis C Ihrdopsdl31/03/1965Pneumococcal Vaccine (1 of 2 - PCV)1965DTaP/Tdap/Td Vaccines (1 - Tdap)1968Zoster Vaccines (1 of 2)1996RSV High Risk: (Elderly (60+) or Population) (1 - 1-dose 75+ series)2Diabetes Fttdfpjnc32/10/2021Influenza Vaccine (#1)5003/23/2017COVID-19 Vaccine ( season)2024 01/15/2021, 06/12/2020, 3852YokfelcfefeOieckjdguetf35/27/2020Colorectal Cancer ScreeningDiscontinuedIrritable Bowel XtjlnxgdCdfzrvjkuicj62/27/2020CT ColonographyDiscontinuedFIT-DNA (Cologuard)DiscontinuedFITDiscontinuedHIB VaccinesAged OutNo longer eligible based [...] medication use Persistent atrial fibrillation (Multi) ECG 12-OLBIGrpfdmw54/20/2025 1:08 PM EDT High risk medication use Persistent atrial fibrillation (Multi) ECG 12-YRSYIivvpic26/06/2025 2:30 PM EDT High risk medication use Persistent atrial fibrillation (Multi) MFJVVLHTGQB36/27/2020 from Last 3 Months or Most Recently [...] Mcnair TypeRelation to PatientDate of BirthPhone Billing AddressPersonal/OsolidMmke86/03/1946 [address] [id number] * Guarantor: Davon Mcnair TypeRelation to PatientDate of BirthPhone Billing AddressPersonal/RlvslbIsbh19/03/1946 [address] [address] Care Teams Team MemberRelationshipSpecialtyStart DateEnd Raphael Avila MD [address] [facility] [place] [address] PCP - GeneralFamily Medicine04/20/24
--- OUTSIDE RECORDS SUMMARY | 2025-01-23 11:16 | XMS_ITS | Patient Health Record ---
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 Name Role Phone Desiree Cuellar Primary Care Provider [phone] Zane Avila [phone] Allergies Allergen (clinical drug ingredient) Drug/Non Drug Allergy documented on EMR Reaction Allergy Type Onset Date Status coconut allergenic extract Coconut (Diagnostic) Unknown Drug Allergy Active Results Component Value Reference Range Notes XR hip RT 2V w/ pelvis Reviewed date:08/22/2024 09:36:42 PM Interpretation: Performing Lab: Notes/Report: Source Facility: [place] [id number] XRay Report Signed Patient: SHAHRZAD MCNAIR MR#: [id number] : 1945 Acct:[id number] Age/Sex: 78 / M ADM Date: 08/22/24 Loc: ER Attending Dr: Ordering Physician: Chevy Wood Date of Service: 08/22/24 Procedure(s): XR hip RT 2V w/ pelvis Accession Number(s): [id number] cc: Chevy Wood; Zachariah Avila M.D. [place] [id number] Patient Name: SHAHRZAD MCNAIR MRN: [id number] date: 1945 Sex: M Assigned Patient Location: ED.MAIN Current Patient Location: Accession/Order Number: [id number] Exam Date: 08/22/2024 08:06 Report Date: 08/22/2024 [...] Fuentes M.D. 08/22/2024 8:07 AM Dictation Location: [place] [address] Electronically authenticated by: [id number] Y Date: 08/22/2024 08:07 Dictated By: Robbie Fuentes M.D. Signed By: 08/22/24 0810 DD/ 0807 TD/TT: Typing Secretary: XR elbow RT min 3V Reviewed date:08/22/2024 09:36:42 PM Interpretation: Performing Lab: Notes/Report: Source Facility: [place] [address] XRay Report Signed Patient: SHAHRZAD MCNAIR MR#: [id number] : 1945 Acct:[id number] Age/Sex: 78 / M ADM Date: 08/22/24 Loc: ER Attending Dr: Ordering Physician: Chevy Wood Date of Service: 08/22/24 Procedure(s): XR elbow RT min 3V Accession Number(s): [id number] cc: Chevy Wood; Zachariah Avila M.D. [place] [address] Patient Name: SHAHRZAD MCNAIR MRN: [id number] date: 1945 Sex: M Assigned Patient Location: ED.MAIN Current Patient Location: Accession/Order Number: [id number] Exam Date: 08/22/2024 08:07 Report Date: 08/22/2024 [...] Fuentes M.D. 08/22/2024 8:08 AM Dictation Location: [place] [address] Electronically authenticated by: [id number] Y Date: 08/22/2024 08:08 Dictated By: Robbie Fuentes M.D. Signed By: 08/22/24 0811 DD/ TD/TT: Typing Secretary: CBC AUTO DIFF Reviewed date:12/15/2024 12:56:51 PM Interpretation: Performing Lab: Notes/Report: [facility] , White Blood Count 10.0 4.0-11.0 10 3/uL Red Blood Count3.334.70-6.10 10 6/qTXmgzwndcii73.114.0-18.0 g/xGNhcfhwotni32.4 42.0-54.0 %Mean Corpuscular Xttdmz839.380.0-94.0 fLMean Corpuscular Hemoglobin 33.325.9-34.0 pgMean Corpuscular HGB Conc33.229.9-35.2 g/dLRed Cell Distribution Width15.011.0-15.0 %Platelet Hkkwv968758-285 10 3/uLMean Platelet Jzxfkg06.09.5- 13.5 fLNeutrophils Percent Auto75.643.0-75.0 %Lymphocytes Percent Auto13.220.5- 60.0 %Monocytes Percent Auto6.71.7-12.0 %Eosinophils Percent Auto3.90.9-7.0 % Basophils Percent Auto0.30.2-2.0 %Immature Granulocytes Pct Auto0.30.0-0.5 % Neutrophils Absolute Auto7.51.4-6.5 10 3/uLLymphocytes Absolute Auto1.31.2-3.8 10 3/uLMonocytes Absolute Auto0.70.3-0.8 10 3/uLEosinophils Absolute Auto0.40.0- 0.7 10 3/uLBasophils Absolute Auto0.00.0-0.1 10 3/uLImmature Granulocytes Abs Auto0.030.00-0.03 10 3/uLPerforming Lab:see noteML - [facility] LB Urine Culture - [facility] Reviewed date:12/18/2024 09:16:04 PM Interpretation: Performing Lab: Notes/Report: [facility] ,Urine Culture - [facility]MCSee Below For Report Urine Culture - [facility] No Growth 2 Days Urine Culture - [facility] Urine Culture - [facility] No Growth 2 Days [facility]rine [facility] - [facility] No Growth 2 Days Urine Culture - [id number] [place] [address] Urine Culture - [facility] No Growth 2 Days Performing Lab:see noteML - [facility] LBECG 12 lead Reviewed date:12/16/2024 12:31:31 PM Interpretation: Performing Lab: Notes/Report: Source Facility: [facility]-[address] [place] [address] [place] [address] Electrocardiograph Report Signed Patient: SHAHRZAD MCNAIR MR#: [id number] : 1945 Acct:[id number] Age/Sex: 79 / M ADM Date: 12/15/24 Loc: ER Attending Dr: Ordering Physician: Hui Loredo M.D. 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 Measurements Intervals Redfield Rate: 67 P: 90 HI: 188 QRS: 55 QRSD: 86 T: 51 QT: 468 QTc: 483 Interpretive Statements 1100 Sinus rhythm 1474 with frequent supraventricular premature complexes 8304 Long QTc interval 9150 abnormal ECG Compared to ECG 08/22/2024 02:28:25 No significant changes Electronically Signed On 12-16-2024 7:29:11 EDT by ANCA BUTLER M.D. Dictated By: ANCA BUTLER Signed By: 12/16/24 0729 DD/ 0840 TD/TT: Typing Secretary:CT head/brain wo con Reviewed date:12/15/2024 12:56:51 PM Interpretation: Performing Lab: Notes/Report: Source Facility: [place] [address] CT Scan Report Signed Patient: SHAHRZAD MCNAIR MR#: [id number] : 1945 Acct:[id number] Age/Sex: 79 / M ADM Date: 12/15/24 Loc: ER Attending Dr: Ordering Physician: Hui Loredo M.D. Date of Service: 12/15/24 Procedure(s): CT head/brain wo con Accession Number(s): [id number] cc: Zachariah Avila M.D. [place] [id number] Patient Name: SHAHRZAD MCNAIR MRN: [id number] date: 1945 Sex: M Assigned Patient Location: ER Current Patient Location: ED.MAIN Accession/Order Number: [id number] Exam Date: 12/15/2024 09:00 Report Date: 12/15/2024 [...] Jr., D.OMook 12/15/2024 9:23 AM Dictation Location: [place] [address] Electronically authenticated by: [id number] Y Date: 12/15/2024 09:23 Dictated By: Wilson Trinidad M.D. Signed By: 12/15/24924 DD/ 2 TD/TT: Typing Secretary:CBC AUTO DIFF Reviewed date:01/16/2025 07:14:25 PM Interpretation: Performing Lab: Notes/Report: [facility] ,White Blood Count8.74.0-11.0 10 3/uLRed Blood Count3.054.70-6.10 10 6/uL Aqnvcwmvmx66.214.0-18.0 g/hYNyepsepuum10.642.0-54.0 %Mean Corpuscular Volume 100.380.0-94.0 fLMean Corpuscular Qtmfxlevoz75.425.9-34.0 pgMean Corpuscular HGB Conc33.329.9-35.2 g/dLRed Cell Distribution Width15.711.0-15.0 %Platelet Count 265390-607 10 3/uLMean Platelet Volume9.49.5-13.5 fLNeutrophils Percent Auto73.7 43.0-75.0 %Lymphocytes Percent Auto15.920.5-60.0 %Monocytes Percent Auto6.31.7- 12.0 %Eosinophils Percent Auto3.30.9-7.0 %Basophils Percent Auto0.60.2-2.0 % Immature Granulocytes Pct Auto0.20.0-0.5 %Neutrophils Absolute Auto6.41.4-6.5 10 3/uLLymphocytes Absolute Auto1.41.2-3.8 10 3/uLMonocytes Absolute Auto0.60.3-0.8 10 3/uLEosinophils Absolute Auto0.30.0-0.7 10 3/uLBasophils Absolute Auto0.10.0- 0.1 10 3/uLImmature Granulocytes Abs Auto0.020.00-0.03 10 3/uLPerforming Lab:see noteML - [facility] LBPROF CHEM 8 (BAS METB) Reviewed date:01/15/2025 11:55:31 AM Interpretation: Performing Lab: Notes/Report: [facility] ,Hogitg006397-482 mmol/LPotassium4.23.5-5.1 mmol/ZTtxucszv31923-890 mmol/LCarbon Ukxoepo79.421.0-32.0 mmol/LAnion Gap15.7Ixfjuzy68275-325 mg/dLBlood Urea Xgxdueiy24.07.0-18.0 mg/dLCreatinine1.510.70-1.30 mg/dLEstimated GFR ( Duivdni04>=60 mL/min/1.73m 2Estimated GFR (Non- Ame45>=60 mL/min/1.73m 2 BUN Creatinine Ratio12.1Vhqrmtm4.68.5-10.1 mg/dLPerforming Lab:see noteML - [facility] LBCBC no Diff (Hemogram) Reviewed date:01/15/2025 11:55:31 AM Interpretation: Performing Lab: Notes/Report: [facility] ,White Blood Count8.94.0-11.0 10 3/uLRed Blood Count3.064.70-6.10 10 6/uL Nokxeqfxbz95.114.0-18.0 g/gTYenndzeifp89.442.0-54.0 %Mean Corpuscular Aobptx64.3 80.0-94.0 fLMean Corpuscular Pcbssuglly92.025.9-34.0 pgMean Corpuscular HGB Conc 33.229.9-35.2 g/dLRed Cell Distribution Width15.711.0-15.0 %Platelet Kueej502 150-450 10 3/uLMean Platelet Volume9.29.5-13.5 fLPerforming Lab:see noteML - [facility] LBTroponin I High Sensitivity Reviewed date:01/15/2025 11:55:31 AM Interpretation: Performing Lab: Notes/Report: [facility] ,Troponin I High Sensitivity6.74.0-76.1 pg/mL CUT-OFF POINTS HAVE BEEN ESTABLISHED BASED ON THE FOURTH UNIVERSAL DEFINITION OF MYOCARDIAL INFARCTION. THE UPPER REFERENCE LIMIT (URL) OF TROPONIN, DEFINED THE 99TH PERCENTILE OF cTnI DISTRIBUTION IN A REFERENCE POPULATION, HAS BEEN CONFIRMED THE DECISION THRESHOLD FOR [place] DIAGNOSIS. 99TH PERCENTILE = 76.2 PG/ML NOTE: HIGH-SENSITIVITY TROPONIN ASSAY IS NOT INTENDED TO BE USED IN ISOLATION BUT SHOULD BE INTERPRETED IN CONJUNCTION WITH OTHER DIAGNOSTIC AND CLINICAL INFORMATION. Performing Lab:see noteML - [facility] LBECG 12 lead Reviewed date:01/15/2025 11:55:31 AM Interpretation: Performing Lab: Notes/Report: Source Facility: [facility]-[address] [place] [address] Electrocardiograph Report Signed Patient: SHAHRZAD MCNAIR MR#: [id number] : 1945 Acct:[id number] Age/Sex: 79 / M ADM Date: 01/15/25 Loc: ER Attending Dr: Ordering Physician: Indira Vogt Date of Service: 01/15/25 Procedure(s): ECG 12 lead Accession Number(s): [id number] cc: [facility] Test Date: 2025-01-15 Pat Name: SHAHRZAD MCNAIR Department: Room: - 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 Measurements Intervals Redfield Rate: 74 P: 58 HI: 196 QRS: 44 QRSD: 84 T: 52 [...] ANCA BUTLER Signed By: 01/15/25 1007 DD/ TD/TT: Typing Secretary:PROF ANDREEA Escobar ([facility]) Reviewed date:01/16/2025 07:14:25 PM Interpretation: Performing Lab: Notes/Report: [facility] ,Efmcrw972453-461 mmol/LPotassium4.53.5-5.1 mmol/GIwacuohb35391-574 mmol/LCarbon Dulojpg67.421.0-32.0 mmol/LAnion Gap13.4Zthtcar45927-283 mg/dLBlood Urea Eobamsmq53.07.0-18.0 mg/dLCreatinine1.340.70-1.30 mg/dLEstimated GFR ( Suki>60>=60 mL/min/1.73m 2Estimated GFR (Non- Ame52>=60 mL/min/1.73m 2 BUN Creatinine Ratio14.7Kdxhnkn9.68.5-10.1 mg/dLPerforming Lab:see noteML - [facility] LBCBC AUTO DIFF Reviewed date:01/16/2025 07:14:25 PM Interpretation: Performing Lab: Notes/Report: [facility] ,White Blood Count8.44.0-11.0 10 3/uLRed Blood Count2.854.70-6.10 10 6/uL Hemoglobin9.414.0-18.0 g/mFVytagkakmu08.042.0-54.0 %Mean Corpuscular Rmcrmz23.2 80.0-94.0 fLMean Corpuscular Htreebhzvo31.025.9-34.0 pgMean Corpuscular HGB Conc 33.629.9-35.2 g/dLRed Cell Distribution Width15.611.0-15.0 %Platelet Ugirh912 150-450 10 3/uLMean Platelet Volume9.49.5-13.5 fLNeutrophils Percent Auto71.7 43.0-75.0 %Lymphocytes Percent Auto16.020.5-60.0 %Monocytes Percent Auto6.91.7- 12.0 %Eosinophils Percent Auto4.60.9-7.0 %Basophils Percent Auto0.40.2-2.0 % Immature Granulocytes Pct Auto0.40.0-0.5 %Neutrophils Absolute Auto6.01.4-6.5 10 3/uLLymphocytes Absolute Auto1.31.2-3.8 10 3/uLMonocytes Absolute Auto0.60.3-0.8 10 3/uLEosinophils Absolute Auto0.40.0-0.7 10 3/uLBasophils Absolute Auto0.00.0- 0.1 10 3/uLImmature Granulocytes Abs Auto0.030.00-0.03 10 3/uLPerforming Lab:see noteML - [facility] LBPROF CHEM 8 (BAS METB) Reviewed date:01/16/2025 07:14:25 PM Interpretation: Performing Lab: Notes/Report: [facility] ,Cxkgjm495713-027 mmol/LPotassium4.63.5-5.1 mmol/QYztbmynr00494-578 mmol/LCarbon Sjfgfou75.021.0-32.0 mmol/LAnion Gap13.7Fbsxlaq41923-302 mg/dLBlood Urea Ysjokjfk62.07.0-18.0 mg/dLCreatinine1.270.70-1.30 mg/dLEstimated GFR ( Suki>60>=60 mL/min/1.73m 2Estimated GFR (Non- Ame55>=60 mL/min/1.73m 2 BUN Creatinine Ratio15.7Wfxqcky9.78.5-10.1 mg/dLPerforming Lab:see noteML - [facility] LBXR ribs LT min 3V w CXR1V Reviewed date:01/15/2025 11:55:31 AM Interpretation: Performing Lab: Notes/Report: Source Facility: [facility]-[address] [place] [address] [address] XRay Report Signed Patient: SHAHRZAD MCNAIR MR#: [id number] : 1945 Acct:[id number] Age/Sex: 79 / M ADM Date: 01/15/25 Loc: ER Attending Dr: Ordering Physician: Indira Vogt Date of Service: 01/15/25 Procedure(s): XR ribs LT min 3V w CXR1V Accession Number(s): [id number] cc: Zachariah Avila M.D.; Indira Vogt [address] [address] Patient Name: SHAHRZAD MCNAIR MRN: [id number] date: 1945 Sex: M Assigned Patient Location: ER Current Patient Location: ED.MAIN Accession/Order Number: [id number] Exam Date: 01/15/2025 07:30 Report Date: 01/15/2025 [...] Francois M.D. 01/15/2025 8:56 AM Dictation Location: [place] [address] Electronically authenticated by: [id number] Y Date: 01/15/2025 08:56 Dictated By: Gilles Francois D.O. Signed By: 01/15/25 0858 DD/ TD/TT: Typing Secretary:XR chest 1V Reviewed date:12/15/2024 12:56:51 PM Interpretation: Performing Lab: Notes/Report: Source Facility: [place] [address] [address] [address] XRay Report Signed Patient: SHAHRZAD MCNAIR MR#: [id number] : 1945 Acct:[id number] Age/Sex: 79 / M ADM Date: Loc: ER Attending Dr: Ordering Physician: Hui Loredo M.D. Date of Service: 12/15/24 Procedure(s): XR chest 1V Accession Number(s): [id number] cc: Zachariah Avila M.D.; Hui Loredo M.D. [place] [address] Patient Name: SHAHRZAD MCNAIR MRN: [id number] date: 1945 Sex: M Assigned Patient Location: ER Current Patient Location: ER Accession/Order Number: [id number] Exam Date: 12/15/2024 09:00 Report Date: 12/15/2024 09:14 At the request of: UHI LOREDO MD Procedure: XR chest 1V Single [...] Jr., D.O. 12/15/2024 9:14 AM Dictation Location: [place] [address] Electronically authenticated by: [id number] Y Date: 12/15/2024 09:14 Dictated By: Wilson Trinidad M.D. Signed By: 12/15/24916 DD/ 3 TD/TT: Typing Secretary:Troponin I High Sensitivity Reviewed date:12/15/2024 12:56:51 PM Interpretation: Performing Lab: Notes/Report: [facility] ,Troponin I High Sensitivity4.94.0-76.1 pg/mL CUT-OFF POINTS HAVE BEEN ESTABLISHED BASED ON THE FOURTH UNIVERSAL DEFINITION OF MYOCARDIAL INFARCTION. THE UPPER REFERENCE LIMIT (URL) OF TROPONIN, DEFINED THE 99TH PERCENTILE OF cTnI DISTRIBUTION IN A REFERENCE POPULATION, HAS BEEN CONFIRMED THE DECISION THRESHOLD FOR [place] DIAGNOSIS. 99TH PERCENTILE = 76.2 PG/ML NOTE: HIGH-SENSITIVITY TROPONIN ASSAY IS NOT INTENDED TO BE USED IN ISOLATION BUT SHOULD BE INTERPRETED IN CONJUNCTION WITH OTHER DIAGNOSTIC AND CLINICAL INFORMATION. Performing Lab:see noteML - [facility] LBUA RANDOM W or MICROSCOPIC Reviewed date:12/15/2024 12:56:51 PM Interpretation: Performing Lab: Notes/Report: [facility] ,Color UrineLT. YELLOWYELLOWClarity UrineCLEARCLEARSpecific Casco Urine1.020 1.005-1.025pH Urine6.05.0-9.0Protein UrineNEGATIVENEG/TRACE mg/dLGlucose Urine BE747BPIPVEBL mg/dLBilirubin UrineNEGATIVENEGATIVEKetones UrineNEGATIVENEGATIVE mg/dLBlood UrineNEGATIVENEGATIVENitrite UrineNEGATIVENEGATIVEUrobilinogen Urine 0.20.2-1.0 EU/dLLeukocyte Esterase UrineTRACENEGATIVEWBC Urine5-10NONE SEEN #/HPFRBC Urine0-20-2 #/HPFBacteria UrineTRACENONE SEEN #/HPFMucus UrineNONE SEEN NONE SEENSquamous Epithelial Cell UrineFEWNONE/RARE #/LPFCrystals Seen?None Seen None Seen #/HPFCast Seen?NONE SEENNONE SEEN #/LPFUrine Culture [facility] Performing Lab:see noteML - [facility] LBPROF CHEM 8 (BAS METB) Reviewed date:12/15/2024 12:56:51 PM Interpretation: Performing Lab: Notes/Report: [facility] ,Fjagft396957-514 mmol/LPotassium4.33.5-5.1 mmol/NCeulhjdc1517-942 mmol/LCarbon Xknflop07.321.0-32.0 mmol/LAnion Gap14.6Umrxfvq01121-033 mg/dLBlood Urea Ylavluvt16.07.0-18.0 mg/dLCreatinine1.640.70-1.30 mg/dLEstimated GFR ( Fpbmddr28>=60 mL/min/1.73m 2Estimated GFR (Non- Ame41>=60 mL/min/1.73m 2 BUN Creatinine Ratio14.3Vrxpkul2.78.5-10.1 mg/dLPerforming Lab:see noteML - [facility] LBECG 12 lead Reviewed date:08/22/2024 09:36:42 PM Interpretation: Performing Lab: Notes/Report: Source Facility: [facility]-[address] [place] [address] [place] [address] Electrocardiograph Report Signed Patient: SHAHRZAD MCNAIR MR#: [id number] : 1945 Acct:[id number] Age/Sex: 78 / M ADM Date: 08/22/24 Loc: ER Attending Dr: Ordering Physician: hCevy Wood Date of Service: 08/22/24 Procedure(s): ECG 12 lead Accession Number(s): [id number] cc: [facility] Test Date: 2024-08-22 Pat Name: SHAHRZAD MCNAIR Department: Room: - 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 Measurements Intervals Redfield Rate: 57 P: 50 HI: 192 QRS: 47 QRSD: 84 T: 51 QT: 526 QTc: 520 Interpretive Statements 1100 Sinus rhythm 8304 Long QTc interval 9150 abnormal ECG Compared to ECG 04/05/2024 07:36:09 No significant changes Electronically Signed On 08-22-2024 7:09:37 EDT by ANCA BUTLER M.D. Dictated By: ANCA BUTLER Signed By: 08/22/24 0710 DD/ 0228 TD/TT: Typing Secretary:PROF ANDREEA Escobar ([facility]) Reviewed date:08/22/2024 09:36:42 PM Interpretation: Performing Lab: Notes/Report: [facility] ,Modrlc286401-458 mmol/LPotassium4.03.5-5.1 mmol/QEhyruftx04506-000 mmol/LCarbon Awpvzxc56.921.0-32.0 mmol/LAnion Gap11.3Iincqfa16365-480 mg/dLBlood Urea Zhsygpxz01.07.0-18.0 mg/dLCreatinine1.480.70-1.30 mg/dLEstimated GFR ( Unnbjxt58>=60 mL/min/1.73m 2Estimated GFR (Non- Ame46>=60 mL/min/1.73m 2 BUN Creatinine Ratio10.6Jeuzlxn1.98.5-10.1 mg/dLPerforming Lab:see noteML - [facility] LBCBC AUTO DIFF Reviewed date:08/22/2024 09:36:42 PM Interpretation: Performing Lab: Notes/Report: [facility] ,White Blood Count7.24.0-11.0 10 3/uLRed Blood Count3.414.70-6.10 10 6/uL Pfcxmxojcb62.714.0-18.0 g/bNGhpryspcaj53.142.0-54.0 %Mean Corpuscular Volume 100.080.0-94.0 fLMean Corpuscular Htjiuqyrne63.325.9-34.0 pgMean Corpuscular HGB Conc34.329.9-35.2 g/dLRed Cell Distribution Width15.711.0-15.0 %Platelet Count 098273-946 10 3/uLMean Platelet Volume9.99.5-13.5 fLNeutrophils Percent Auto61.9 43.0-75.0 %Lymphocytes Percent Auto24.120.5-60.0 %Monocytes Percent Auto8.11.7- 12.0 %Eosinophils Percent Auto4.70.9-7.0 %Basophils Percent Auto0.40.2-2.0 % Immature Granulocytes Pct Auto0.80.0-0.5 %Neutrophils Absolute Auto4.41.4-6.5 10 3/uLLymphocytes Absolute Auto1.71.2-3.8 10 3/uLMonocytes Absolute Auto0.60.3-0.8 10 3/uLEosinophils Absolute Auto0.30.0-0.7 10 3/uLBasophils Absolute Auto0.00.0- 0.1 10 3/uLImmature Granulocytes Abs Auto0.060.00-0.03 10 3/uLPerforming Lab:see noteML - [facility] LBCA echo doppler complete Reviewed date:04/10/2024 02:49:18 PM Interpretation: Performing Lab: Notes/Report: Source Facility: [facility]-[address] [place] [address] [place] [address] Cardiology Report Signed Patient: SHAHRZAD MCNAIR MR#: [id number] : 1945 Acct:[id number] Age/Sex: 78 / M ADM Date: 04/05/24 Loc: [place] 213-[address]: Eulalio Valencia D.O. Ordering Physician: Eulalio Valencia D.O. Date of Service: 04/05/24 Procedure(s): CA echo doppler complete Accession Number(s): [id number] cc: Zachariah Avila M.D.; Eulalio Valencia D.O. Patient Name: SHAHRZAD MCNAIR MR#: [id number] : 1945 Exam Date: 04/05/2024 Ordering Doctor: [...] ANCA BUTLER Signed By: 04/09/24 1326 DD/ 24 TD/TT: Typing Secretary:VITAMIN D 25 [place] Reviewed date:01/16/2025 07:14:25 PM Interpretation: Performing Lab: Notes/Report: [facility] ,Vitamin D8.1 <20 ng/mL Vit D deficient 20-<30 ng/mL Vit D insufficient 30-100 ng/mL Vit D sufficient >100 ng/mL Potential Toxicity Performing Lab:see noteML - [facility] LBMAGNESIUM Reviewed date:01/16/2025 07:14:25 PM Interpretation: Performing Lab: Notes/Report: [facility] ,Magnesium1.81.8-2.4 mg/dLPerforming Lab:see noteML - [facility] LB LIVER PROFILE Reviewed date:01/16/2025 07:14:25 PM Interpretation: Performing Lab: Notes/Report: [facility] ,Bilirubin Total0.50.2-1.0 mg/dLBilirubin Direct0.10.0-0.2 mg/dLAspartate Amino Dglrplykcgz0072-46 U/LAlanine Tjsoyxfybwobuill0121-36 U/LAlkaline Pslqymhlhmj690 46-116 U/LTotal Protein6.56.4-8.2 g/dLAlbumin Level2.83.4-5.0 g/dLGlobulin3.7 Albumin Globulin Ratio0.8Performing Lab:see noteML - [facility] LB Reason For Referral No Information Medications Medication [...] since you last smoked?1-5 yearsAdditional Findings: Tobacco eql-qibfPj-jtxf heavy cigarette smoker (40+/day)AUDIT-C (Standard) Question Answer [...] W/U Status Risk Notes Problem Atrial fibrillation (39055064) Atrial fib rillation (I48.91) ActiveconfirmedProblemHyperlipidaemia (97470402)Hyperlipemia (E78.5)Active confirmedProblemHypertension (68400899)Hypertension (I10)ActiveconfirmedProblem COPD - Chronic obstructive pulmonary disease (23122153)COPD (chronic obstructive pulmonary disease) (J44.9)ActiveconfirmedProblemStroke (214622158)Stroke (I63.9)ActiveconfirmedProblemMyocardial infarction (65447311)FL (myocardial infarction) (I21.3)ActiveconfirmedProblemHilar mass (976951375)Hilar mass (R91.8)ActiveconfirmedProblemExpressive aphasia (400440732)Expressive aphasia (R47.01)ActiveconfirmedProblemAltered mental status (961868854)Altered mental status (R41.82)ActiveconfirmedProblemMetabolic encephalopathy (42596323)Acute metabolic encephalopathy (G93.41)ActiveconfirmedProblemEssential hypertension (33361734)BP (high blood pressure) (I10)Activeconfirmed Vital Signs Blood pressure diastolic 62 mm Hg 12/23/2024 Khcfhp34 in12/23/2024lood pressure mtibtkbu257 mm Hg12/23/20249265Ruzawq365 lbs 12/23/2024BMI23.75 kg/m212/23/2024 Encounters Encounter Location Date Provider Diagnosis [facility] [address] [facility] [address] 04/06/2024 Desiree Cuellar [facility] [facility] [address] 09/27/2024Pamela CramerHypertension V84Zgxeeqp[facility] [facility] [address]/Pamela [facility] [facility] [address]/Pamela [facility] [facility] [address]/[facility] [facility] [address]/Pamela [facility] [address] [facility] [address]/[facility] [facility] [address]/Pamela [facility] [facility] [address]/Pamela CramerHypertension K19RuwfznhEast [facility] [address] [facility] [address]/Pamela CramerHypertension C99CagpxgoEast [facility] [facility] [address] 12/23/2024Pamela CramerUTI (urinary tract infection) N39.0 Assessments Encounter [...] 09/27/2024 Next Appt Details Provider Name:Desiree chandler, 01/24/2025 10:30:00 AM, [address] [place], [address], Insurance Providers Payer Name Payer Address Payer Phone Subscriber Number Group Number Insured Name Patient Relationship to Insured Coverage Start Date Coverage End Date [place] [address] [place] [address] [id number] Julia Mcnair - patient is the insured Medical (General) History Medical History History ICD Code Hypertension I10 COPD (chronic obstructive pulmonary dise ase) J44.9 Atrial fibrillation I48.91 Stroke I63.9 FL (myocardial infarction) I21.3 Surgical History Surgery Date(Month/Year) Tonsillectomy Cataract- bilateralLumbar surgery- disc [id number] and Pin in Right Elbow CHOLECYSTECTOMYHospitalization History Reason Date(Month/Year) Encephalopathy 09/2023
--- NOTE | 2025-01-23 11:42 | CT_ITS ---
The [address] [address] Patient Name: SHAHRZAD EDGAR MRN: [id number] date: 1945 Sex: M Assigned Patient Location: ER Current Patient Location: Accession/Order Number: [id number] Exam Date: 01/23/2025 11:38 Report Date: 01/23/2025 12:21 At the request of: HERMES DASH MD Procedure: CT chest wo con CT CHEST WITHOUT CONTRAST COMPARISON: 01/12/2025 CLINICAL DATA: Continued left chest pain. History of fall with rib fracture. Spiral axial unenhanced images were obtained through the chest. Images were reviewed using both narrow and wide window settings. This CT exam was performed using one or more following dose reduction techniques: Automated exposure control, adjustment of the mA and/or kV according to patient size, or use of iterative reconstruction technique. The heart is within normal limits for size. There is still a small amount of pericardial fluid anteriorly. Coronary artery disease is seen. There is mild atherosclerotic plaque at the aorta and proximal great vessels. No aneurysm is identified. There are similar small nonpathologic mediastinal lymph nodes. There is minor bilateral gynecomastia. Slight dextroscoliotic curvature and minor degenerative changes are seen at the spine. Mild compression deformity at T7 was present on the prior. A nondisplaced anterior left seventh rib fracture is still possible. No other displaced rib fractures are identified. There is still an irregular masslike opacity in the paramediastinal left upper lobe in the suprahilar region. There is additional scarring or atelectasis bilaterally. No pleural effusion or pneumothorax is seen. An elongate pleural based nodular density at the left lower lobe laterally is again seen. Limited imaging through the upper abdomen shows prior cholecystectomy. CT/CT chest wo con IMPRESSION: CONTINUED TINY PERICARDIAL EFFUSION. CONTINUED IRREGULAR MASSLIKE OPACITY AT THE LEFT UPPER LOBE. ALTHOUGH INFILTRATE IS POSSIBLE, FOLLOW-UP WILL BE NEEDED SINCE NEOPLASM IS NOT EXCLUDED. MINOR ATELECTASIS AND/OR SCARRING. POSSIBLE NONDISPLACED ANTERIOR LEFT SEVENTH RIB FRACTURE. NO OTHER ACUTE FINDINGS. Impression dictated by: No Stewart M.D. 01/23/2025 12:21 PM Dictation Location: [place] [address] Electronically authenticated by: [id number] Y Date: 01/23/2025 12:21
[2025-01-23 11:43] LABS: Hematocrit 30.6 % (42.0-54.0); Hemoglobin 10.3 g/dL (14.0-18.0); Immature Granulocytes Abs Auto 0.02 10^3/uL (0.00-0.03); Immature Granulocytes Pct Auto 0.2 % (0.0-0.5); Lymphocytes Absolute Auto 1.1 10^3/uL (1.2-3.8); Mean Corpuscular HGB Conc 33.7 g/dL (29.9-35.2); Mean Corpuscular Hemoglobin 33.2 pg (25.9-34.0); Mean Corpuscular Volume 98.7 fL (80.0-94.0); Platelet Count 242 10^3/uL (150-450); Red Blood Count 3.10 10^6/uL (4.70-6.10); White Blood Count 9.6 10^3/uL (4.0-11.0)
[2025-01-23 11:56] LABS: Alanine Aminotransferase 25 U/L (16-63); Albumin Globulin Ratio 0.7; Albumin Level 2.8 g/dL (3.4-5.0); Alkaline Phosphatase 132 U/L (46-116); Anion Gap 9.2; Aspartate Amino Transferase 23 U/L (15-37); Blood Urea Nitrogen 16.0 mg/dL (7.0-18.0); Calcium 8.6 mg/dL (8.5-10.1); Carbon Dioxide 28.9 mmol/L (21.0-32.0); Chloride 99 mmol/L (98-107); Estimated GFR (African America 57 (>=60 mL/min/1.73m^2); Estimated GFR (Non-African Ame 47 (>=60 mL/min/1.73m^2); Globulin 4.0 g/dL; Glucose 120 mg/dL (74-106); Potassium 4.1 mmol/L (3.5-5.1); Sodium 133 mmol/L (136-145); Total Protein 6.8 g/dL (6.4-8.2)
--- NOTE | 2025-01-23 12:49 | ED_ITS ---
HPI - Altered Mental Status General Chief Complaint: Altered Mental Status Stated Complaint: ALTERED MENTAL STATUS Time Seen by Provider: 01/23/25 11:09 Source: patient Mode of arrival: ambulance Limitations: no limitations History of Present Illness HPI narrative: The patient is a 79-year-old male brought to us by the EMS after he has been complaining of left-sided chest pain initially he was diagnosed most within the last 2 weeks with a rib fracture but apparently the patient was found to have a what the patient was saying with almost a lung nodule that need biopsy over the last few days the patient noted that he had been having some hallucination has been seeing the dog that he had before that is not alive anymore around him in some positions. And he is worried that he is hallucinating he is taking tr amadol for pain and that is not a new medication that he was started on Patient denies any other concerns Related Data Home Medications ?Medication ?Instructions ?Recorded ?Confirmed atorvastatin 80 mg tablet 80 mg PO DAILY 03/02/2312/22 nitroglycerin 0.4 mg sublingual 0.4 mg sublingual Q5M PRN chest 08/22/24 01/15/25 tablet pain magnesium oxide 400 mg PO BID 01/15/2501/15 Previous Rx's ?Medication ?Instructions ?Recorded aspirin 81 mg tablet,delayed 81 mg PO QD #30 tabs 09/20 08/13 release lisinopril 10 mg tablet 5 mg (1/2 x 10 mg) PO DAILY #30 10/05/23 tabs amoxicillin 875 mg-potassium 1 tab PO BID #14 tabs clavulanate 125 mg tablet ergocalciferol (vitamin D2) 1,250 1,250 mcg PO QWEEK # 5 caps 01/17/25 mcg (50,000 unit) capsule sotalol 80 mg tablet 80 mg PO BID #0 tabs 5 Allergies Allergy/AdvReac Type Severity Reaction Status Date / Time coconut Allergy Intermediate Vomiting Verified 12/15/24 08:35 Review of Systems ROS Status of ROS 10 or more systems reviewed and unremark able except as noted in history and below [facility] Medical History (Updated 01/23/25 @ 12:50 by Natalie Verdugo MD) COPD (chronic obstructive pulmonary disease) ?J44.9 - Chronic obstructive pulmonary disease, unspecified (ICD-10) History of stroke ?Z86.73 - Personal history of transient ischemic attack (TIA), and cerebral infarction without residual deficits (ICD-10) Acute metabolic encephalopathy ?G93.41 - Metabolic encephalopathy (ICD-10) Generalized weakness ?R53.1 - Weakness (ICD-10) Foot drop, bilateral ?M21.371 - Foot drop, right foot (ICD-10) ?M21.372 - Foot drop, left foot (ICD-10) Hyperlipemia ?E78.5 - Hyperlipidemia, unspecified (ICD-10) Past heart attack ?I25.2 - Old myocardial infarction (ICD-10) Hypertension ?I10 - Essential (primary) hypertension (ICD-10) CVA (cerebral vascular accident) ?I63.9 - Cerebral infarction, unspecified (ICD-10) Surgical History Hx of cholecystectomy ?Z90.49 - Acquired absence of other specified parts of digestive tract (ICD- 10) History of back surgery ?Z98.890 - Other specified postprocedural states (ICD-10) Family History Father Family history of COPD (chronic obstructive pulmonary disease) Mother Family history of cancer Alzheimer dementia Social History Within the past year, how often did you have a drink containing alcohol: 2-4 times a month Within the past year, how many standard drinks containing alcohol did you have on a typical day: 1 or 2 Within the past year, how often did you have six or more drinks on one occasion: never Total score: 0 Score interpretation: A score less than 4 is consistent with normal alcohol consumption. Smoking status: Former smoker Second hand tobacco smoke exposure: No Non-prescribed substance use: denies use Previous occupational history: retired Known occupational exposures/hazards: No Highest level of school completed/degree received: GED or equivalent Are you now , , , , never or living with a partner: living with partner In a typical week, how many times do you talk on the telephone with family, friends, or neighbors: 3 or more times per week How often do you get together with friends or relatives: 3 or more times per week How often do you attend hindu or quaker services: never Do you belong to any clubs or organizations such as hindu groups unions, fraternal or athletic groups, or school groups: no Total score: 2 Score interpretation: A score of greater than or equal to 2 indicates the lowest level of social isolation. Little interest or pleasure in doing things: not at all Feeling down, depressed, or hopeless: not at all Feel stressed/tense/nervous/anxious/difficulty sleeping: not at all Do you think of yourself as: straight/heterosexual Gender Identity: male Exam Narrative Exam Narrative: Nurses notes and vital signs reviewed and patient is not hypoxic. General: Well-appearing and in no apparent distress. Skin: Warm, dry, no pallor noted. No rash. Head: Normocephalic, atraumatic. Neck: Supple, non-tender. Cardiovascular: Regular Rate and Rhythm without murmur, gallop or rub. Respiratory: No accessory muscle use or respiratory distress. Lungs are clear to auscultation, no wheezing, rales or rhonchi Chest Wall: no tenderness Back: No midline thoracic or lumbar vertebral tenderness. No CVA tenderness Musculoskeletal: normal ROM, no calf or popliteal tenderness, no lower extrem ity edema/swelling GI: Abdomen is soft, non-distended. Normal bowel sounds. No masses appreciated. No tenderness to palpation. No rebound, guarding, or rigidity noted. Neurological: A&O x4. No cranial nerve dysfunction observed. No truncal ataxia. Moves all extremities. Sensation intact. Psychiatric: Cooperative and interactive. Normal mood and affect. Constitutional Vital Signs, click to edit/add: Last Vital Signs Temp 98.2 F 01/23/25 10:57 Pulse 60 01/23/25 10:57 Resp 18 01/23/25 10:57 BP 182/80 H 01/23/25 10:57 Pulse Ox 98 01/23/25 10:57 O2 Del Method Room Air 01/23/25 10:57 Course Vital Signs Vital signs: Vital Signs Temperature 98.2 F 01/23/25 10:57 Pulse Rate 60 01/23/25 10:57 Respiratory Rate 18 01/23/25 10:57 Blood Pressure 182/80 H 01/23/25 10:57 Pulse Oximetry 98 01/23/25 10:57 Oxygen Delivery Method Room Air 01/23/25 10:57 Temperature 98.2 F 01/23/25 10:57 Pulse Rate 60 01/23/25 10:57 Respiratory Rate 18 01/23/25 10:57 Blood Pressure 182/80 H 01/23/25 10:57 Pulse Oximetry 98 01/23/25 10:57 Oxygen Delivery Method Room Air 01/23/25 10:57 MDM - Altered Mental Status MDM Narrative Medical decision making narrative: The patient CBC and chemistry showed no acute significant pathology have a baseline of creatinine that mildly elevated which was seen the previous workup The patient CAT scan obtained because he had last time he was evaluated with an x-ray for the broken 7 rib on the left side it was recommended he get the CAT scan The CT of the chest showed that the patient have a masslike in the left upper lung Right now the patient hallucination could be secondary to medication and that why he will stop the tramadol but it also could be secondary to possibly cancer in the lung and the patient will need further evaluation he was already planned to get biopsy done on January 30 which is 7 days from now and I did explain to him it is very important that he does the biopsy The patient to stop taking tramadol right now and start taking only Tylenol for pain as he mentioned that he was tolerating the pain well The patient to come back to us in case of any new symptoms or concerns The patient to follow-up with the primary care within 2 to 3 days and to come back to the ER in case of any worsening of the current symptoms or any new symptoms or concerns Lab Data Labs: Lab Results 01/23/25 Range/Units 11:30 WBC 9.6 (4.0-11.0) 10^3/uL RBC 3.10 L (4.70-6.10) 10^6/uL Hgb 10.3 L (14.0-18.0) g/dL Hct 30.6 L (42.0-54.0) % MCV 98.7 H (80.0-94.0) fL MCH 33.2 (25.9-34.0) pg MCHC 33.7 (29.9-35.2) g/dL RDW 15.8 H (11.0-15.0) % Plt Count 242 (150-450) 10^3/uL MPV 9.1 L (9.5-13.5) fL Neut % (Auto) 74.9 (43.0-75.0) % Lymph % (Auto) 11.8 L (20.5-60.0) % [facility] % (Auto) 9.1 (1.7-12.0) % Eos % (Auto) 3.7 (0.9-7.0) % Baso % (Auto) 0.3 (0.2-2.0) % Neut # (Auto) 7.2 H (1.4-6.5) 10^3/uL Lymph # (Auto) 1.1 L (1.2-3.8) 10^3/uL [facility] # (Auto) 0.9 H (0.3-0.8) 10^3/uL Eos # (Auto) 0.4 (0.0-0.7) 10^3/uL Baso # (Auto) 0.0 (0.0-0.1) 10^3/uL Abs Immat Gran (auto) 0.02 (0.00-0.03) 10^3/uL Imm/Tot Granulo (auto) 0.2 (0.0-0.5) % Sodium 133 L (136-145) mmol/L Potassium 4.1 (3.5-5.1) mmol/L Chloride 99 (98-107) mmol/L Carbon Dioxide 28.9 (21.0-32.0) mmol/L Anion Gap 9.2 BUN 16.0 (7.0-18.0) mg/dL Creatinine 1.45 H (0.70-1.30) mg/dL Est GFR ( Amer) 57 L (>=60 mL/min/1.73m^2) Est GFR (Non-Af Amer) 47 L (>=60 mL/min/1.73m^2) BUN/Creatinine Ratio 11.0 Glucose 120 H (74-106) mg/dL Calcium 8.6 (8.5-10.1) mg/dL Total Bilirubin 0.9 (0.2-1.0) mg/dL AST 23 (15-37) U/L ALT 25 (16-63) U/L Alkaline Phosphatase 132 H (46-116) U/L Total Protein 6.8 (6.4-8.2) g/dL Albumin 2.8 L (3.4-5.0) g/dL Globulin 4.0 g/dL Albumin/Globulin Ratio 0.7 Discharge Plan Discharge Chief Complaint: Altered Mental Status Clinical Impression: Chest pain, Lung mass, Hallucination Patient Disposition: Home, Self-Care Time of Disposition Decision: 12:50 Condition: Good Mode of Transportation: Private Vehicle Prescriptions / Home Meds: Discontinued tramadol 50 mg tablet 25 mg PO Q6H PRN (Reason: pain) Qty: 30 0RF No Action atorvastatin 80 mg tablet 80 mg PO DAILY aspirin 81 mg Tablet,Delayed Release (Dr/Ec) 81 mg PO QD Qty: 30 11RF lisinopril 10 mg Tablet 5 mg PO DAILY Qty: 30 11RF nitroglycerin 0.4 mg tablet, sublingual 0.4 mg sublingual Q5M PRN (Reason: chest pain) Rx Instructions: do not exceed 3 doses per episode magnesium oxide 400 mg magnesium tablet 400 mg PO BID ergocalciferol (vitamin D2) 1,250 mcg (50,000 unit) Capsule 1,250 mcg PO QWEEK Qty: 5 0RF amoxicillin-pot clavulanate 875-125 mg tablet 1 tab PO BID Qty: 14 0RF sotalol 80 mg Tablet 80 mg PO BID Qty: 0 0RF Rx Instructions: per patient takes HALF A tablet twice a day Print Language: Korean Instructions: Tramadol (By mouth), Chest Pain (ED), Hallucinations (ED) Additional Instructions: Please stop taking tramadol and only take Tylenol for pain and hydrate very well and follow-up with your primary care Referrals: Raphael Avila MD [Primary Care Provider, Family Practice] - 1 week Discharge Date/Time: 01/23/25 13:18
== END 2025-01-23 13:18 | disposition home or self-care (01) ==
PROVIDERS: Emergency Provider Emergency Medicine; PCP Family Medicine
DX: R07.9 Chest pain, unspecified (principal); R91.8 Other nonspecific abnormal finding of lung field; R44.1 Visual hallucinations; Z87.891 Personal history of nicotine dependence
CPT/HCPCS: 36415; 71250; 80053; 85025; 99284

== ENCOUNTER 2025-02-01 06:39 | Outpatient (OUT) | payer MEDICARE, SELFPAY ==
--- OUTSIDE RECORDS SUMMARY | 2025-01-16 05:30 | XMS_ITS ---
Author Organization The [facility] in [place] Address [address] [place] [address] Care Team Providers Care Jewelry Sorter Name Role Phone Desiree Cuellar Primary Care Provider REASON FOR VISIT ER- Left AMA- MASS Encounters Encounter Location Date Provider Diagnosis [facility] [address] [place] [address] 01/16/2025 Desiree Cuellar Plan Of Treatment Next Appt Details Provider Name:Desiree chandler, 02/28/2025 10:30:00 AM, [address] [place], [address], Progress Notes * MCNAIRCiaranDOB:1945 (79 yo M)Acc No.[id number]:01/16/2025 UNLOCKED PROGRESS NOTE Progress Note Patient: Ciaran LOVE :?Desiree Cuellar ([facility]), CNPDOB:1945 ???Age:79 Y???Sex:MaleDate:01/16/2025Phone:[phone]:[address], [place], [place] Subjective: * Chief Complaints: * 1 . ER- Left AMA- MASS. * Medical History: Objective: * Vitals: Assessment: Plan: * Treatment: * * Electronic signature of Desiree Cuellar NP, CERTIFIED ENERGY MANAGER.SPECIAL INVESTIGATION UNIT INVESTIGATOR.[id number] on 02/01/2025 at 06:42 AM ESTSign off status: PendingVisit Status:?CANCPHONE (Cancelled Phone) * Provider: Shannon Cuellar ([facility]), SPECIAL INVESTIGATION UNIT INVESTIGATOR Date: Generated for Printing/Faxing/eTransmitting on:?02/01/2025 06:42 AM EST
--- OUTSIDE RECORDS SUMMARY | 2025-01-17 23:00 | XMS_ITS | Encounter Summary ---
Author Organization [facility] Address [address] [place] [address] Care Team Providers Care Portable Power Tool Repairer Name Role Phone Unavailable Primary Care Provider Unavailabl e Encounter Details DateTypeDepartmentCare Team (Latest Contact Info)Qnxgvtrtpnh26/29/2025 - 01/18/2025 11:59 PM EDTHospital Encounter [facility] Radiology External Films [address] [place] [address] Discharge Disposition: Home or Self Care () Social History Tobacco UseTypesPacks/DayYears UsedDateSmoking Tobacco: Never AssessedUT Safety & EnvironmentAnswerDate RecordedFear of Current or Ex-PartnerNot on file 05/14/2023Emotionally AbusedNot on file05/14/2023hysically AbusedNot on file 05/14/2023Sexually AbusedNot on file05/14/2023hysically or Sexually AbusedNot on file05/14/2023Sex and Gender InformationValueDate RecordedSex Assigned at UvfwzZqwc38/10/2025 8:19 AM ESTLegal SgxPmxq1309/18/2021 11:03 PM EDTGender QondyvxeCuvo57/10/2025 8:19 AM ESTSexual OrientationHeterosexual or Straight 01/30/2025 8:19 AM ESTdocumented as of this encounter Medications at Time [...] Take 40 mg by mouth two times daily.508/08/2025documented as of this encounter Plan of Treatment Not on file documented as of this encounter Procedures Procedure NamePriorityDate/TimeAssociated DiagnosisCommentsCT TRANSFER OF OUTSIDE SRABEFvvaeua86/29/2025 12:00 AM EDT documented in this encounter Results * CT transfer of outside films (01/18/2025 12:00 AM EDT)Specimen (Source) Anatomical Location / LateralityCollection Method / VolumeCollection Time Received Time Narrative IMAGING - 01/18/2025 10:58 AM EDT This order has been auto-finalized and does not contain a result. Authorizing ProviderResult TypeResult StatusMohamed Alyssa LEWIMJulieta CT PROCEDURES Final ResultPerforming OrganizationAddressCity/State/ZIP CodePhone Number IMAGING documented in this encounter Visit Diagnoses Not on filedocumented in this encounter
--- OUTSIDE RECORDS SUMMARY | 2025-01-24 05:30 | XMS_ITS ---
Author Organization The [facility] [place] in [place] Address [address] [place] [address] Care Team Providers Care Vessel Slag Worker Name Role Phone Desiree Cuellar Primary Care Provider Allergies Allergen (clinical drug ingredient) Drug/Non Drug Allergy documented on EMR Reaction Allergy Type Onset Date Status coconut allergenic extract Coconut (Diagnostic) Unknown Drug Allergy Active REASON FOR VISIT [facility] D/C- 01/17- AFIb, patient was at [facility] ed yesterday hallucinations due to tramadol Medications Medication SIG (Take, Route, Frequency, Duration) Notes Start Date End Date Status Lisinopril 10 MG TAKE 1/2 TABLET BY MOUTH ONCE E VERYDAY; Duration: 90 ActiveAspirin Adult Low Dose 81 MG1 tablet Orally Once a dayActiveAtorvastatin Calcium 80 MG1 tablet Orally Once a day4ActiveSotalol HCl 80 MGTAKE 1 TABLET BY MOUTH EVERY 12 HOURS FOR 30 DAYS; Duration: 90ActiveNitroglycerin ActiveMagnesium Oxide 400 MG1 tablet with food Orally bidActive Social History Tobacco Use: Social History Observation Description Date Details (start date - stop date) Former Smoker 03/23/1963 - 03/23/2019 Tobacco Control (Standard) Question Answer Notes Tobacco use: Former smoker When did you start smoking?03/23/1963When did you stop smoking?03/23/2019How long has it been since you last smoked?1-5 yearsAdditional Findings: Tobacco nkt-aapxSr-mzue heavy cigarette smoker (40+/day)AUDIT-C (Standard) Question Answer Notes Did you have a drink containing alcohol in the p ast year? No Rbedvf2QfjqhyehaadvwsFngwizqf Problems Problem Type SNOMED Code ICD Code Onset Dates Problem Status W/U Status Risk Notes Problem Anemia (664324901) Anemia (D64.9) ActiveconfirmedProblemHallucinations (9087013)Hallucinations (R44.3)Active confirmed Vital Signs Weight 174 lbs 01/24/2025 Height 73 in 01/24/2025 Blood pressure systolic 120 mm Hg 01/25/20 25 Blood pressure diastolic 68 mm Hg 025 BMI 22.95 kg/m2 01/24/2025 Encounters Encounter Location Date Provider Diagnosis [facility] [address] [place] [address] 01/24/2025 Desiree Cuellar Hilar mass R91.8 ; Hallucinations R44.3 ; Anemia D64.9 and Rib fracture S22.39XA Assessments Encounter Date Diagnosis (ICD Code) Assessment Notes Treatment Notes Treatment Clinical Notes Section Notes 01/24/2025 Hilar mass (ICD-10 - R91.8) thursday biopsy scheduled has been losing wt 01/24/2025Hallucinations (ICD-10 - R44.3)no more holding bdbyjwkp26/04/2025 Anemia (ICD-10 - D64.9) repeat labs 1m check iron has had 2 colonoscopies, does not want another 01/24/2025Rib fracture (ICD-10 - S22.39XA) tripped taking tylenol 01/24/2025Otherrepeat cbc, cmp, check iron 1m Plan Of Treatment Treatment Notes Assessment Notes Hilar mass thursday biopsy scheduled has been losing wt Hallucinations no more holding tram adol Anemia repeat labs 1m check iron has had 2 colonoscopies, does not want another Rib fracture tripped taking tylenol Other repeat cbc, cmp, arjun ck iron 1m Next Appt Details Follow Up: prn, Reason: Provider Name:Desiree chandler, 02/28/2025 10:30:00 AM, [address] [place], [address], Progress Notes * Ciaran MCNAIRDOB:1945 (79 yo M)Acc No.[id number]:01/24/2025 Progress Note Patient: Ciaran LOVE :?Desiree Cuellar ([facility]), CNPDOB:1945 ???Age:79 Y???Sex:MaleDate:01/24/2025Phone:[phone]:[address], [address], [place], [id number] In:10:03 AM ESTCheck Out:10:35 AM EST Subjective: * Chief Complaints: * 1 . [facility] D/C- 01/17- AFIb. 2. Patient was at [facility] ed yesterday hallucinations due to tramadol. * HPI: ???General:?biopsy Thursday cardiology fu in spring colonoscopy- has had two labs reviewed has lost wt last year or two no more hallucinations since holding tramadol fell broken rib, taking tylenol now using walker stopped smoking 6m ago. * ROS: ???General/Constitutional:?Fever?denies.?Headache?denies.?Weight loss admits, is unintentional.?Ophthalmologic:?Discharge?denies.?Eye Pain?denies.?Itching and redness?denies.?ENT:?Nasal discharge?denies.?Nasal congestion?denies. Sore throat?denies.?Cardiovascular:?Chest tightness/ heavy pressure?denies.?Rapid heart rate?denies.?Swelling of extremities?denies.?Chest pain?denies.?Respiratory:?Productive cough?denies.?Chest pain?denies.?Cough?denies.?Shortness of breath?denies.?Wheezing?denies.?Gastrointestinal:?Abdominal pain?denies.?Constipation?denies.?Decreased appetite?denies.?Diarrhea?denies.?Nausea?denies.?Vomiting denies.?Genitourinary:?Urinary incontinence?denies.?Painful urination?denies.?Musculoskeletal:?Patient complaining of?left chest pain.?Back pain denies.?Neck pain?denies.?Muscle aches?denies.?Skin:?Rash?denies.?Skin lesion(s)?denies.? * Active Problem List I10 Hypertension Modified On:10/12/2023 Status:ncaxdgqjiV92.9COPD (chronic obstructive pulmonary disease) Modified On:10/12/2023 Status:vzuqoeevgI00.91Atrial fibrillation Modified On:10/12/2023 Status:itkyrvhkzX51.9Stroke Modified On:10/12/2023 Status:fqxrqbzflG35.3MI (myocardial infarction) Modified On:10/12/2023 Status:kvrkpjopfS60.82Altered mental status Modified On:11/09/2023 Status:eacvqboteQ59.41Acute metabolic encephalopathy Modified On:11/09/2023 Status:tmjsfvpktW32BD (high blood pressure) Modified On:11/09/2023 Status:vqnzgoonwJ03.01Expressive aphasia Modified On:04/18/2024 Status:bxeedtwerJ19.5Hyperlipemia Modified On:04/18/2024 Status:qyetlwloyT38.8Hilar mass Modified On:01/18/2025 Status:smzefmxfuN81.3Hallucinations Modified On:01/24/2025 Status:gknsigywfS50.9Anemia Modified On:01/24/2025 Status:confirmed * Medical History: H ypertension, COPD (chronic obstructive pulmonary disease), Atrial fibrillation, Stroke, PR (myocardial infarction). * Surgical History: C HOLECYSTECTOMY , Plate and Pin in Right Elbow , Lumbar surgery- disc x2 , Cataract- bilateral , Tonsillectomy . * Hospitalization/Major Diagno stic Procedure: E ncephalopathy 09/2023. * Family History: F ather: , COPD, emphysema. M other: , Alzheimers. S ister(s): alive.?Son(s): alive, Lupus. 1 sister(s) - healthy. 1 son(s) . . * Social History: ???Tobacco Use:?Tobacco Control (Standard)?Tobacco use:?Former smoker ?When did you start smoking??03/23/1963 ?When did you stop smoking??03/23/2019 ?How long has it been since you last smoked? 1-5 years ?Additional Findings: Tobacco non-user?Ex-very heavy cigarette smoker (40+/day) ???Drug/Alcohol:?AUDIT-C (Standard)?Did you have a drink containing alcohol in the past year??No ?Points?0 ?Interpretation?Negative * Medications: T aking Aspirin Adult Low Dose(Aspirin) 81 MG Tablet Delayed Release 1 tablet Orally Once a day , Taking Atorvastatin Calcium 80 MG Tablet 1 tablet Orally Once a day , Taking Lisinopril 10 MG Tablet TAKE 1/2 TABLET BY MOUTH ONCE EVERYDAY , Taking Magnesium Oxide 400 MG Tablet 1 tablet with food Orally bid , Taking Nitroglycerin , Taking Sotalol HCl 80 MG Tablet TAKE 1 TABLET BY MOUTH EVERY 12 HOURS FOR 30 DAYS , Medication List reviewed and reconciled with the patient * Allergies: C oconut (Diagnostic): Allergy. Objective: * Vitals: W t:174lbs, Ht: 73 in, BP:120/68mm Hg, BMI:22.95Index, Ht-cm: 185.42 cm, Wt-k.93 kg. * Examination: ???General Examinations: ?GENERAL APPEARANCE:?alert and oriented,?in no acute distress.?EYES:?conjunctiva normal, sclera non-icteric.?NOSE:?normal external appearance.?LUNGS:?diminished breath sounds in the bases.?CARDIO:?slighltly irregular rhythm and normal rate, no edema.?MUSCULOSKELETAL:?using walker.?SKIN:?warm and dry.? Assessment: * Assessment: 1.?Hilar mass - R91.8 (Primary)???2.?Hallucinations - R44.3?? 3.?Anemia - D64.9???4.?Rib fracture - S22.39XA??? Plan: * Treatment: Notes: thursday biopsy scheduled has been losing wt??2.?Hallucinations? Notes: no more holding tramadol??3.?Anemia? Notes: repeat labs 1m check iron has had 2 colonoscopies, does not want another??4.?Rib fracture? Notes: tripped taking tylenol??5.?Others? Notes: repeat cbc, cmp, check iron 1m?? * Preventive Medicine: ??Screenings/Counseling:?FALL RISK SCREENING?Fall Risk Assessment:?No falls in the past year * Follow Up: p rn * * Electronically signed by Desiree Cuellar NP, COIN MACHINE OPERATOR.FUNCTIONAL [id number] on 01/25/2025 at 11:04 AM ESTSign off status: CompletedVisit Status:?CHK (Check Out) true * Provider: Shannon Cuellar ([facility]), FUNCTIONAL MANAGER Date: 03/26/2024 Generated for Printing/Faxing/eTransmitting on:?02/01/2025 06:41 AM EST History and Physical Notes * HPI (History of Present Illness) CategorySub-CategoryDetailNotesCategory NotesGeneral biopsy Thursday cardiology fu in [place] colonoscopy- has had two labs reviewed has lost wt last year or two no more hallucinations since holding tramadol fell broken rib, taking tylenol now using walker stopped smoking 6m ago Examination CategorySub-CategoryDetailNotesCategory NotesGeneral ExaminationsGENERAL APPEARANCE:alert and oriented, in no acute distressEYES:conjunctiva normal, sclera non-ictericEARS:NOSE:normal external appearanceTHROAT:CARDIO:slighltly irregular rhythm and normal rate, no edemaLUNGS:diminished breath sounds in the basesABDOMEN:SKIN:warm and dryBACK:MUSCULOSKELETAL:using walkerLYMPH NODES:
--- OUTSIDE RECORDS SUMMARY | 2025-01-30 08:16 | XMS_ITS | Encounter Summary ---
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 Name Role Phone Unavailable Primary Care Provider Unavailabl e Reason for Referral * Hospital - Outpatient (Routine) - AuthorizedSpecialtyDiagnoses / Procedures Referred By ContactReferred To ContactGastroenterology Diagnoses Lung mass Procedures Bronchoscopy with TBBx, EBUS with 3 or more stations Josefa Shah MD [address] [place] [address] Phone: tel: fax: [facility] [address] [place] [phone] Phone: tel: fax: Referral IDStatusReasonStart DateExpiration DateVisits RequestedVisits [id number]/29/202510/29/202611 Reason for Visit * Hospital - Outpatient (Routine) - AuthorizedSpecialtyDiagnoses / Procedures Referred By ContactReferred To ContactGastroenterology Diagnoses Lung mass Procedures Bronchoscopy with TBBx, EBUS with 3 or more stations Josefa Shah MD [address] [place] [address] Phone: tel: fax: [facility] [address] [place] [phone] Phone: tel: fax: Referral IDStatusReasonStart DateExpiration DateVisits RequestedVisits [id number]/29/202510/29/202611 Encounter Details DateTypeDepartmentCare Team (Latest Contact Info)Fxwikchxvdm19/10/2025 8:16 AM ESTHospital Encounter [facility] Main Operating Room [address] [place] [address] Josefa Shah MD [address] [place] [address] Saurabh Nick MD [address] [place] [address] Bishnu Viera MD [address] [place] [address] Lung mass Discharge Disposition: Home or Self Care () Social History Tobacco UseTypesPacks/DayYears UsedDateSmoking Tobacco: FormerCigarettes Smokeless Tobacco: NeverAlcohol UseStandard Drinks/WeekCommentsYes0 (1 standard drink = 0.6 oz pure alcohol)OCCUT Safety & EnvironmentAnswerDate RecordedFear of Current or Ex-PartnerNot on file05/14/2023Emotionally AbusedNot on file 4Physically AbusedNot on file05/14/2023Sexually AbusedNot on file 4Physically or Sexually AbusedNot on file05/14/2023Sex and Gender InformationValueDate RecordedSex Assigned at QcnahJqis40/10/2025 8:19 AM EST Legal ZstMikc6809/18/2021 11:03 PM EDTGender XnsxvhcfBxqo40/10/2025 8:19 AM EST Sexual OrientationHeterosexual or Qbuyqsaf21/10/2025 8:19 AM ESTdocumented as of this encounter Discharge Instructions * Discharge Instructions* Mya Morales RN - 01/30/2025 12:02 PM EST Findings: BILL mass Resume diet Biopsy sent, will take 5-7 business days to result documented in this encounter Medications at Time of Discharge MedicationSigDispense QuantityRefillsLast FilledStart DateEnd Date amoxicillin-pot clavulanate (Augmentin) 875-125 mg tablet Take 1 tablet by mouth two times daily. aspirin 81 mg EC tablet Take 81 mg by mouth in the morning.05/30/2020 atorvastatin (Lipitor) 80 mg tablet Take 80 mg by mouth in the morning. ergocalciferol (Vitamin D-2) 200 mcg/mL (8,000 unit/mL) drops Take by mouth 1 (one) time per week. THURSDAYS lisinopril 10 mg tablet Take 5 mg by mouth in the morning.11/04/2023 magnesium oxide (Mag-Ox) 400 mg (241.3 mg magnesium) tablet Take 1 tablet by mouth twice a day./ sotalol (Betapace) 80 mg tablet Take 40 mg by mouth two times daily./08/2025 nitroglycerin (Nitrostat) 0.[address] 0.4 mg under the tongue every 5 (five) minutes if needed. traMADol (Ultram) 50 mg tablet Take 0.5 tablets by mouth every 6 (six) hours if needed.documented as of this encounter Progress Notes * Josefa Shah MD - 01/30/2025 10:00 AM EST Images from the original note were not included. Interventional Pulmonology Consult Patient : Ciaran Mcnair : 1945 Location: No information available for this encounter. Attending: No att. providers found Admit Date: (Not on file) Hospital Day: 0 HPI: Patient is a 79-year-old male who presents to the hospital for blood procedure. He has a medical history significant for atrial fibrillation, TIA, hypertension, hyperlipidemia. The patient had imaging studies including CT of the chest that was done at an outside facility showed a left upper lobe lesion. He presents today for bronchoscopy/EBUS/robotic assisted bronchoscopy. Imaging scans done at an outside facility were reviewed. He denies any fevers or chills, chest painor shortness of breath, neck pain, nausea or vomiting. Assessment: Left upper lobe lesion Tobacco use, over 20-vdwj-mrci history Atrial fibrillation History of TIA Hypertension Hyperlipidemia Plan: Will proceed with the planned procedure today. Consent was obtained. All the questions were answered. Past History/Allergies?Social History: Medical History[1] Allergies[2] Social History Socioeconomic History Marital status: Spouse name: Not on file Number of children: Not on file Years of education: Not on file Highest education level: Not on file Occupational History Not on file Tobacco Use Smoking status: Former Types: Cigarettes Smokeless tobacco: Never Vaping Use Vaping status: Never Used Substance and Sexual Activity Alcohol use: Yes Comment: OCC Drug use: Never Sexual activity: Not on file Other Topics Concern Not on file Social History Narrative Not on file Social Drivers of Health Financial Resource Strain: Not on file Food Insecurity: Not on file Transportation Needs: Not on file Physical Activity: Not on file Stress: Not on file Social Connections: Not on file Intimate Partner Violence: Unknown (05/14/2023) [place] Safety & Environment Fear of Current or Ex-Partner: Not on file Emotionally Abused: Not on file Physically Abused: Not on file Sexually Abused: Not on file Physically or Sexually Abused: Not on file Housing Stability: Not on file Family History: Family History[3] Outpatient Medications: Current Medications[4] Current Medications: Scheduled Meds: Continuous Infusions: PRN Meds: Review of Systems: ROS Negative except otherwise specified in HPI Input/Output: No intake/output data recorded. Vital Signs: Temperature: TMax: No data recorded. Respirations: Pulse: BP: BP Range: No data recorded. No data recorded. Wt Readings from Last 3 Encounters: No data found for Wt Physical Examination: General: No acute distress HEENT: Normocephalic, atraumatic, EOMI, no scleral icterus or erythema Neck: Supple, trachea midline, no masses noted Cardiovascular: Regular rate and rhythm, normal S1-S2, no murmurs, no rubs, no peripheral edema Respiratory: No acute respiratory distress, clear to auscultation bilaterally, no wheezing, no rales Abdomen: Soft, nontender, nondistended, positive bowel sounds Extremities: No cyanosis, no edema Neuro: No focal deficits Skin: Warm, dry, no rashes Labs: ABG/VBG: No results found for: PHART , OTE3MVK , PO2ART , MFY9OCG , IONCALART No results found for: PHVEN , TNT7UFB , PO2VEN , PZT8PUD , IONCALVEN CBC: Coagulation: Metabolic Panel: No lab exists for component: LABGLOM Liver Panel: No lab exists for component: TOTALPROTEI , LABBILIRUBIN , TOTALBILIRUB , BILIRUB , BILIRUBIND Glucose: Hgb A1c: Cardiac: No lab exists for component: TROPI , TROPONIN Anemia Labs: Lipid Panel: No lab exists for component: CHOLHDL Urine Labs: No results found for: WBCU , UROBILINOGEN Additional Labs: No lab exists for component: LACTICACID , PROCALCITON Urinalysis/Chemistries: No results found for: GLU , UROBILINOGEN Urine Sodium: No components found for: JEAN Urine Potassium: No results found for: KUR Urine Chloride: No results found for: CLUR Urine Osmolarity: No components found for: OSMOU Urine Protein: No components found for: TPU Urine Creatinine: No results found for: LABCREA UPC: Urine Eosinophils: No components found for: UEOS Radiology: CT transfer of outside films Result Date: 01/18/2025 This order has been auto-finalized and does not contain a result. Re-explained the procedure to the patient along with the associated risk of pneumothorax, bleeding,hypoxia, and respiratory failure. Patient is agreeable and will proceed with the scheduled bronchoscopy and TBBx Josefa Shah MD Interventional Pulmonary Medicine Pulmonary and Critical Care Medicine [facility] [1] Past Medical History: Diagnosis Date Afib (CMS/HCC) Anemia Arthritis COPD (chronic obstructive pulmonary disease) (CMS/HCC) Diabetes mellitus (CMS/HCC) Hilar mass History of transfusion Hx of transient ischemic attack (TIA) Hyperlipidemia Hypertension [2] No Known Allergies [3] No family history on file. [4] Current Outpatient Medications: amoxicillin-pot clavulanate (Augmentin) 875-125 mg tablet, Take 1 tablet by mouth two times daily.,Disp: , Rfl: aspirin 81 mg EC tablet, Take 81 mg by mouth in the morning., Disp: , Rfl: atorvastatin (Lipitor) 80 mg tablet, Take 80 mg by mouth in the morning., Disp: , Rfl: ergocalciferol (Vitamin D-2) 200 mcg/mL (8,000 unit/mL) drops, Take by mouth 1 (one) time per week.THURSDAYS, Disp: , Rfl: lisinopril 10 mg tablet, Take 5 mg by mouth in the morning., Disp: , Rfl: magnesium oxide (Mag-Ox) 400 mg (241.3 mg magnesium) tablet, Take 1 tablet by mouth twice a day., Disp: , Rfl: nitroglycerin (Nitrostat) 0.4 mg SL tablet, Place 0.4 mg under the tongue every 5 (five) minutes ifneeded., Disp: , Rfl: sotalol (Betapace) 80 mg tablet, Take 40 mg by mouth two times daily., Disp: , Rfl: traMADol (Ultram) 50 mg tablet, Take 0.5 tablets by mouth every 6 (six) hours if needed., Disp: , Rfl: documented in this encounter H&P Notes * Josefa Shah MD - 01/30/2025 10:00 AM EST Images from the original note were not included. Interventional Pulmonology Consult Patient : Ciaran Mcnair : 1945 Location: No information available for this encounter. Attending: No att. providers found Admit Date: (Not on file) Hospital Day: 0 HPI: Patient is a 79-year-old male who presents to the hospital for blood procedure. He has a medical history significant for atrial fibrillation, TIA, hypertension, hyperlipidemia. The patient had imaging studies including CT of the chest that was done at an outside facility showed a left upper lobe lesion. He presents today for bronchoscopy/EBUS/robotic assisted bronchoscopy. Imaging scans done at an outside facility were reviewed. He denies any fevers or chills, chest painor shortness of breath, neck pain, nausea or vomiting. Assessment: Left upper lobe lesion Tobacco use, over 61-amee-dwru history Atrial fibrillation History of TIA Hypertension Hyperlipidemia Plan: Will proceed with the planned procedure today. Consent was obtained. All the questions were answered. Past History/Allergies?Social History: [Medical History] [Medical History] Past Medical History Diagnosis Date Afib (CMS/HCC) Anemia Arthritis COPD (chronic obstructive pulmonary disease) (CMS/HCC) Diabetes mellitus (CMS/HCC) Hilar mass History of transfusion Hx of transient ischemic attack (TIA) Hyperlipidemia Hypertension [Allergies] [Allergies] No Known Allergies Social History Socioeconomic History Marital status: Spouse name: Not on file Number of children: Not on file Years of education: Not on file Highest education level: Not on file Occupational History Not on file Tobacco Use Smoking status: Former Types: Cigarettes Smokeless tobacco: Never Vaping Use Vaping status: Never Used Substance and Sexual Activity Alcohol use: Yes Comment: OCC Drug use: Never Sexual activity: Not on file Other Topics Concern Not on file Social History Narrative Not on file Social Drivers of Health Financial Resource Strain: Not on file Food Insecurity: Not on file Transportation Needs: Not on file Physical Activity: Not on file Stress: Not on file Social Connections: Not on file Intimate Partner Violence: Unknown (05/14/2023) [place] Safety & Environment Fear of Current or Ex-Partner: Not on file Emotionally Abused: Not on file Physically Abused: Not on file Sexually Abused: Not on file Physically or Sexually Abused: Not on file Housing Stability: Not on file Family History: [Family History] [Family History] No family history on file. Outpatient Medications: [Current Medications] [Current Medications] Current Outpatient Medications: amoxicillin-pot clavulanate (Augmentin) 875-125 mg tablet, Take 1 tablet by mouth two times daily.,Disp: , Rfl: aspirin 81 mg EC tablet, Take 81 mg by mouth in the morning., Disp: , Rfl: atorvastatin (Lipitor) 80 mg tablet, Take 80 mg by mouth in the morning., Disp: , Rfl: ergocalciferol (Vitamin D-2) 200 mcg/mL (8,000 unit/mL) drops, Take by mouth 1 (one) time per week.THURSDAYS, Disp: , Rfl: lisinopril 10 mg tablet, Take 5 mg by mouth in the morning., Disp: , Rfl: magnesium oxide (Mag-Ox) 400 mg (241.3 mg magnesium) tablet, Take 1 tablet by mouth twice a day., Disp: , Rfl: nitroglycerin (Nitrostat) 0.4 mg SL tablet, Place 0.4 mg under the tongue every 5 (five) minutes ifneeded., Disp: , Rfl: sotalol (Betapace) 80 mg tablet, Take 40 mg by mouth two times daily., Disp: , Rfl: traMADol (Ultram) 50 mg tablet, Take 0.5 tablets by mouth every 6 (six) hours if needed., Disp: , Rfl: Current Medications: Scheduled Meds: Continuous Infusions: PRN Meds: Review of Systems: ROS Negative except otherwise specified in HPI Input/Output: No intake/output data recorded. Vital Signs: Temperature: TMax: No data recorded. Respirations: Pulse: BP: BP Range: No data recorded. No data recorded. Wt Readings from Last 3 Encounters: No data found for Wt Physical Examination: General: No acute distress HEENT: Normocephalic, atraumatic, EOMI, no scleral icterus or erythema Neck: Supple, trachea midline, no masses noted Cardiovascular: Regular rate and rhythm, normal S1-S2, no murmurs, no rubs, no peripheral edema Respiratory: No acute respiratory distress, clear to auscultation bilaterally, no wheezing, no rales Abdomen: Soft, nontender, nondistended, positive bowel sounds Extremities: No cyanosis, no edema Neuro: No focal deficits Skin: Warm, dry, no rashes Labs: ABG/VBG: No results found for: PHART , IUM8GNW , PO2ART , MRI6CDX , IONCALART No results found for: PHVEN , HFP2JNU , PO2VEN , BBO4JLB , IONCALVEN CBC: Coagulation: Metabolic Panel: No lab exists for component: LABGLOM Liver Panel: No lab exists for component: TOTALPROTEI , LABBILIRUBIN , TOTALBILIRUB , BILIRUB , BILIRUBIND Glucose: Hgb A1c: Cardiac: No lab exists for component: TROPI , TROPONIN Anemia Labs: Lipid Panel: No lab exists for component: CHOLHDL Urine Labs: No results found for: WBCU , UROBILINOGEN Additional Labs: No lab exists for component: LACTICACID , PROCALCITON Urinalysis/Chemistries: No results found for: GLU , UROBILINOGEN Urine Sodium: No components found for: JEAN Urine Potassium: No results found for: KUR Urine Chloride: No results found for: CLUR Urine Osmolarity: No components found for: OSMOU Urine Protein: No components found for: TPU Urine Creatinine: No results found for: LABCREA UPC: Urine Eosinophils: No components found for: UEOS Radiology: CT transfer of outside films Result Date: 01/18/2025 This order has been auto-finalized and does not contain a result. Attestation Re-explained the procedure to the patient along with the associated risk of pneumothorax, bleeding,hypoxia, and respiratory failure. Patient is agreeable and will proceed with the scheduled bronchoscopy and TBBx Josefa Shah MD Interventional Pulmonary Medicine Pulmonary and Critical Care Medicine [facility] documented in this encounter Plan of Treatment NameTypePriorityAssociated DiagnosesDate/TimeFL in ORImagingRoutine Lung mass 01/30/2025 11:26 AM ESTHistology - tissue examPathology and CytologyRoutine Lung mass 01/30/2025 10:20 AM ESTNon-gas prover cytology - cellular examPathology and Cytology Routine Lung mass 01/30/2025 10:30 AM ESTNameTypePriorityAssociated DiagnosesOrder ScheduleFL in ORImagingRoutine Lung mass Once for 1 Occurrences starting 01/30/2025 until 01/30/2025Histology - tissue examPathology and CytologyTimed Lung mass Release Upon Ordering for 1 Occurrences starting 01/30/2025, 1 completedNon-gas prover cytology - cellular examPathology and CytologyTimed Lung mass Release Upon Ordering for 1 Occurrences starting 01/30/2025, 1 completed documented as of this encounter Procedures Procedure NamePriorityDate/TimeAssociated DiagnosisCommentsXR CHEST 1 VIEWSTAT 01/30/2025 12:16 PM EST KOTKBBDGMWBVDhnwzuz47/10/2025 11:26 AM EST Lung mass POCT GLUCOSE METER UNSOLICITED WBPUBIMUysfjqm99/10/2025 8:46 AM EST documented in this encounter Results * XR chest 1 view (01/30/2025 12:16 PM EST)Anatomical RegionLateralityModality ChestComputed RadiographySpecimen (Source)Anatomical Location / Laterality Collection Method / VolumeCollection TimeReceived Time01/30/2025 12:18 PM EST Impressions 01/30/2025 12:18 PM EST * Mild interstitial changes, basilar scarring. Some paramediastinal abnormality left upper lobe which could relate to lesion which was biopsied. No effusions. Stable heart size. Electronically signed: Walt Jimenez MD. Narrative 01/30/2025 12:18 PM EST XR CHEST 1 VIEW Clinical information: Recent procedure. Comparison: 02/12/16. Procedure Note Walt Jimenez MD - 01/30/2025 XR CHEST 1 VIEW Clinical information: Recent procedure. Comparison: 02/12/16. IMPRESSION: *Mild interstitial changes, basilar scarring. Some paramediastinal abnormality left upper lobe which could relate to lesion which wasbiopsied. No effusions. Stable heart size. Electronically signed: Walt Jimenez MD. Authorizing ProviderResult TypeResult StatusMohamfranky Shah MDIMG XR PROCEDURES Final Result * Bronchoscopy with TBBx, EBUS with 3 or more stations (01/30/2025 11:26 AM EST) Anatomical RegionLateralityModalityOtherSpecimen (Source)Anatomical Location / LateralityCollection Method / VolumeCollection TimeReceived Time Narrative 01/30/2025 11:46 AM EST Images from the original result were not included. ?Interventional Pulmonary Medicine Procedure Type: Bronchoscopy, radial ultrasound-guided transbronchial biopsy, and EBUS guided TBNA Date of procedure: 01/30/2025 Indication: Left upper lobe mass, mediastinal adenopathy concerning for lung cancer Attending: Josefa Shah MD Fellow(s): Josefa LEW Consent/timeout: Obtained/performed Anesthesia: General Description of the procedure: Procedure was done in the OR. ??Airway maintained with ET tube. ??The bronchoscope was passed via the ET tube and advanced to the tracheobronchial tree. ??The visualized portion of trachea is normal. ??The maria teresa is sharp. ??Airways were inspected at least to the second subsegmental level and they were all normal except for an endobronchial lesion causing occlusion of the apical subsegment of the upper division of the left upper lobe. ?? The EBUS scope was introduced. Lymph node examined biopsy was performed as follows: Station 4R was less than 5 mm. ??No biopsies were taken Station 7 was found to be enlarged at 12 mm. ??EBUS guided TBNA using a 21-gauge needle was performed. ??4 passes obtained Station 4L was found to be enlarged at 8 mm. ??EBUS guided TBNA using a 21-gauge needle was performed. ??5 passes obtained No pathologic adenopathy was seen in station 10L, 11L The flexible scope was then reintroduced. ??In the radial ultrasound guidance and fluoroscopy and using the 1.1 mm disposable cryoprobe transbronchial biopsy was performed from the left upper lobe. ??5 passes obtained. Scope withdrawn, procedure concluded, patient tolerated well Blood loss: Minimal Complications: None apparent Postprocedure impression and recommendations: Left upper lobe mass status post radial ultrasound-guided transbronchial biopsy Mediastinal adenopathy status post EBUS guided TBNA of station 4L, 7 Recovery per PACU Chest x-ray May discharge per PACU protocol if chest x-ray is clear Await cytology and histology Follow up with Dr. Avila as scheduled Josefa Shah MD, D-[id number] Interventional Pulmonary Medicine Pulmonary and Critical Care Medicine [facility] Authorizing ProviderResult TypeResult StatusMohamfranky Shah MDENDOSCOPY PROCEDURE ORDERABLESFinal Result * (ABNORMAL) POCT glucose meter (01/30/2025 8:46 AM EST)ComponentValueRef Range Test MethodAnalysis TimePerformed AtPathologist SignatureGlucose RPI964(H)70 - 105 mg/dL01/30/2025 9:02 AM [facility] ([facility])Comment:mschober Specimen (Source)Anatomical Location / LateralityCollection Method / Volume Collection TimeReceived TimeBloodCapillary blood specimen / Scrxfmf9501/30/2025 8:46 AM EST01/30/2025 9:02 AM EST Narrative [facility] ([facility]) - 01/30/2025 9:02 AM EST Waived Testing in the ED is performed under the ED CLIA certificate #[id number]. Authorizing ProviderResult TypeResult StatusMokira MARQUES BLOOD ORDERABLESFinal ResultPerforming OrganizationAddressCity/State/ZIP CodePhone Number [facility] ([facility]) [address] [place] [address] documented in this encounter Visit Diagnoses Diagnosis Lung mass Swelling, mass, or lump in chest documented in this encounter Administered Medications Medication OrderMAR ActionAction DateDoseRateSite lactated Ringer's infusion 20 mL/hr, intravenous, Continuous, Starting on Thu01/30/25 at 0900, For 1 day, Preprocedure New 01/30/2025 8:57 AM EST20 mL/hr20 mL/hrdocumented in this encounter
--- OUTSIDE RECORDS SUMMARY | 2025-01-30 09:42 | XMS_ITS ---
Author Organization [facility] in [place] Address [address] [place] [address] Care Team Providers Care Cert Pharmacy Tech Name Role Phone Desiree Cuellar Primary Care Provider [phone] Reason For Referral Reason Schedule COLUMBA please Diagnosis 1 Lung cancer (C34.90) Referral Organization [facility] Referring Provider First Name Desiree Referring Provider Last Name Polo Referring Provider Speciality Family Med icine Referred Organization [facility] [place] Referred Provider Iman Cid Referred Address [address],[facility] [address],[place], [place],[address], Referred Provider Specialty Hematology/O ncology Referral Priority Routine REASON FOR VISIT lung cancer- testing Problems Problem Type SNOMED Code ICD Code Onset Dates Problem Status W/U Status Risk Notes Problem Lung cancer (966204957) Lung cancer (C34. 90) Activeconfirmed Encounters Encounter Location Date Provider Diagnosis [facility] [address] [place] [address] 01/30/2025 Desiree Cuellar Lung cancer C34.90 a nd Hallucinations R44.3 Assessments Encounter Date Diagnosis (ICD Code) Assessment Notes Treatment Notes Treatment Clinical Notes Section Notes 01/30/2025 Lung cancer (ICD-10 - C34.90) 01/30/2025Hallucinations (ICD-10 - R44.3) Plan Of Treatment Pending Test Test Name Order Date MRI Brain w/ + w/o Contrast 01/30/2025 Referrals Referral Date Details 01/30/2025 01/30/2025, Schedule COLUMBA please, Iman Cid, [address] , [place], [address], [email or web address], Next Appt Details Provider Name:Desiree chandler, 02/28/2025 10:30:00 AM, [address] [facility], [facility] [address], [place], [address], Progress Notes * Ciaran MCNAIRDOB:1945 (79 yo M)Acc No.[id number]:01/30/2025 Patient:?Ciaran MCNAIR :1945???Age:79 Y???Sex:MalePhone:[phone] Address:[address] [place] [address], [address], [address] Subjective: * Chief Complaints: * L blaise cancer- testing * Medical History: * Surgical History: * Hospitalization/Major Diagno stic Procedure: * Medications: Objective: * Vitals: * Physical Examination: ??? Assessment: * Assessment: 1.?Lung cancer - C34.90 (Primary)???2.?Hallucinations - R44.3?? Plan: * Treatment: ?Imaging: MRI Brain w/ + w/o Contrast* COLUMBA PLEASE ? Referral To:Iman Cid??Hematology/Oncology ?Reason:ScheduleASAP please 2.?Hallucinations?Imaging: MRI Brain w/ + w/o Contrast* COLUMBA PLEASE * Procedure Codes: * true * Date:?Generated for Printing/Faxing/eTransmitting on:?02/01/2025 06:42 AM EST Consultation Request Notes Referral Date Referring Provider Referred Provider Not beatriz 01/30/2025 Desiree Cuellar Apoorva Schedule A SAP please
--- OUTSIDE RECORDS SUMMARY | 2025-01-30 09:59 | XMS_ITS | Encounter Summary ---
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 Name Role Phone Unavailable Primary Care Provider Unavailabl e Encounter Details DateTypeDepartmentCare Team (Latest Contact Info)Bqhlzwnxuuq92/10/2025 9:59 AM ESTAnesthesia Event [facility] Main [facility] [address] [place] [address] Saurabh Nick MD [address] [place] [address] Aneta Franks MD [address] [place] [address] Anesthesia Record Procedure NameResponsible AnesthesiologistAnesthesia Start TimeAnesthesia Stop TimeBRONCHOSCOPYThyessy Nick MD01/30/25 42496201/30/25 1133DateTimeEventComment [id number] Zwitn0964Ol Start Zhja1961Qq InductionThe patient was reevaluated immediately before moderate or deep sedation use and before anesthesia induction.1008An Goyjofdxyd1087Dcslblikis Lhbbf3709Sqnk OutTime out completed (confirmed patient ID, surgeon, procedure, and operative site).1125An Vpmhsdrszn7256zo stop ixlg6892Hdicaff to ReceivingI completed my handoff to the receiving clinician during which we: 1. Identified the patient 2. Identified the responsible provider 3. Reviewed the pertinent medical history 4. Discussed the surgicalcourse 5. Reviewed intra-op anesthesia management and issues during anesthesia 6. Set expectations for post-procedure period 7. Allowed opportunity for questions and acknowledgement of understanding.1133An Stop* NameTotal midazolam (Versed) 1mg/mL injection2 mgfentaNYL (SUBLIMAZE) mcg lidocaine (Xylocaine) 20 mg/ml injection 2 %100 mgpropofol 10 mg/mL100 mg zbjpyegvnr14 mgdexAMETHasone (Decadron) 4 MG/ML fktbjkipw31 mgondansetron 2 mg/mL4 mgePHEDrine 50 mg/ml mgphenylephrine (Marvin-Synephrine) 10 mg/ml lyysmzolx648 mcgsugammadex 200 mg/1nL548 mgLR1.57 mLcalcium chloride 10% 1,000 mglidocaine (LTA Kit) for intubation1 kit * Agents Name O2 N2O Air Sevoflurane Inspired Sevoflurane N2O Inspired N2O Inspired O2 Setting * Blood No blood administrations on file. TypeDetailsPlacementRemovalPeripheral IVPlacement Date: 01/30/25; Placement Time: 852; Catheter Size: 20 G; Orientation: Posterior, Right;Location: Hand; Site Prep: Chlorhexidine ; Technique: Anatomical landmarks; Inserted by: Keyanna; Insertion Attempts: 1; Difficult Venous Access? No; Patient Tolerance: Tolerated well; Removal Date: 01/30/25; Removal Time: 0853 by Arianne Garay RN01/30/25 1130 by Mya Morales RNETTPlacement Date: 01/30/25; Placement Time: 1007 (created via procedure documentation); Mask Ventilation: 3; Technique: Video laryngoscopy; Type: ETT - single; Single Lumen Tube Size: 8.5 mm; Cuffed: Yes; Blade Size: 3; Location: Oral; Grade View: Grade I; Insertion Attempts: 1; Placement Verification: Auscultation, Capnometry; Removal Date: 01/30/25; Removal Time: 1008 by Bishnu Viera MD01/30/25 1125 by Bishnu Viera MDdocumented in this encounter Social History Tobacco UseTypesPacks/DayYears UsedDateSmoking Tobacco: FormerCigarettes Smokeless Tobacco: NeverAlcohol UseStandard Drinks/WeekCommentsYes0 (1 standard drink = 0.6 oz pure alcohol)OCCUT Safety & EnvironmentAnswerDate RecordedFear of Current or Ex-PartnerNot on file05/14/2023Emotionally AbusedNot on file 05/14/2023hysically AbusedNot on file02/22/2024Sexually AbusedNot on file 4Physically or Sexually AbusedNot on file05/14/2023Sex and Gender InformationValueDate RecordedSex Assigned at LsmdvImew72/10/2025 8:19 AM EST Legal CyyUxtp6009/18/2021 11:03 PM EDTGender NibtpzjrUtcg06/10/2025 8:19 AM EST Sexual OrientationHeterosexual or Gxhatnka70/10/2025 8:19 AM ESTdocumented as of this encounter Functional Status * QuestionAnswerDate of AssessmentAuthorHeart Rate HxofqgDkzdxtd99/10/2025 9:32 AM Arianne Lopez RNRamsay Scale (RS): Phtys61704/01/2024 9:32 AM Arianne Lopez RN * QuestionAnswerDate of DpivzsgmzzDxswcyWD264/8101/30/2025 12:15 PM Mya Munroe RNPulse8501/30/2025 12:15 PM Mya Munroe RN * Lior ScaleQuestionAnswerDate of AssessmentAuthorSensory Perceptions4 01/30/2025 8:50 AM Arianne Lopez RNMoisture4104/01/2024 8:50 AM Arianne Lopez, WDUwgllqbn235/10/2025 8:50 AM Arianne Lopez, DNFbacqfqu055/10/2025 8:50 AM Arianne Lopez, YYLgfxpqpct993/10/2025 8:50 AM Arianne Lopez, RNFriction and Fhdew37604/01/2024 8:50 AM Arianne Lopez RNBraden Scale Eyqus1644/10/2025 8:50 AM Arianne Lopez RN * Pain Assessment TimerQuestionAnswerDate of AssessmentAuthorRestart Pain Assessment OcyefZic10/10/2025 12:15 PM Mya Munroe RN * Pain AssessmentQuestionAnswerDate of AssessmentAuthorPain LocationAnkle 01/30/2025 9:32 AM Arianne Lopez RNPatient's Stated Pain GoalNo pain 01/30/2025 8:50 AM Arianne Lopez RNWong-Echols FACES Pain Rating0 01/30/2025 11:30 AM Mya Munroe RNPain TypeAcute pain01/30/2025 9:32 AM Arianne Lopez RNPain Score0 - No pain01/30/2025 9:32 AM Arianne Lopez RNPain AssessmentNo/denies pain01/30/2025 12:15 PM Mya Munroe RN * Head, Ears, Eyes, Nose, and Throat (HEENT)QuestionAnswerDate of Assessment AuthorHead, Ears, Eyes, Nose, and Throat (WDL)WDL104/01/2024 12:15 PM Mya Munroe RN * QuestionAnswerDate of AssessmentAuthorTemp ijcDuyytlnp75/10/2025 9:32 AM Arianne Wiley RNHeart Rate JecrbwZraylvc70/10/2025 9:32 AM Arianne Lopez RNRamsay Scale (RS): Wlbjg55904/01/2024 9:32 AM Arianne Lopez RN * Vital SignsQuestionAnswerDate of GavrkpgdysXxfqulJL284/8101/30/2025 12:15 PM Mya Munroe RNTemp96.8104/01/2024 11:28 AM Mya Munroe RNPulse85 01/30/2025 12:15 PM Mya Munroe RNResp17104/01/2024 11:30 AM Mya Munroe RNSpO296104/01/2024 12:15 PM Mya Munroe RNMAP (mmHg)9501/30/2025 12:15 PM Mya Munroe RNPulse rate from Plethysmogram (bpm)9401/30/2025 12:15 PM Mya Munroe RN * QuestionAnswerDate of AssessmentAuthorLevel of WoxvylsmwzkccAuvxh43/10/2025 12:15 PM Mya Munroe RNOrientation LevelOriented X4104/01/2024 12:15 PM Mya Munroe RN * QuestionAnswerDate of AssessmentAuthorCardiac RhythmA-Fib01/30/2025 12:15 PM Mya Munroe RNCardiac ParpdjtuzpQeyraegsw81/10/2025 12:15 PM Mya Munroe RN * GastrointestinalQuestionAnswerDate of AssessmentAuthorGastrointestinal (WDL) WDL104/01/2024 12:15 PM Mya Munroe RN * Peripheral VascularQuestionAnswerDate of AssessmentAuthorPeripheral Vascular (WDL)WDL104/01/2024 12:15 PM Mya Munroe RN * MusculoskeletalQuestionAnswerDate of JivuzkgmchPswpkyCQMMshvhqja41/10/2025 12:15 PM Mya Munroe RNLLEWeakness01/30/2025 12:15 PM Mya Munroe RNMusculoskeletal (WDL)X104/01/2024 12:15 PM Mya Munroe RN * PsychosocialQuestionAnswerDate of AssessmentAuthorPsychosocial (WDL)WDL 01/30/2025 8:50 AM Arianne Lopez RN * Lior ScaleQuestionAnswerDate of AssessmentAuthorSensory Perceptions4 01/30/2025 8:50 AM Arianne Lopez, IGWaryngne742/10/2025 8:50 AM Arianne Lopez, GVOeynxfjw921/10/2025 8:50 AM Arianne Lopez, JTNzhebvrm647/10/2025 8:50 AM Arianne Lopez, FAMiezdiutt745/10/2025 8:50 AM Arianne Lopez, RNFriction and Skfih59404/01/2024 8:50 AM Arianne Lopez RNBraden Scale Mzode8467/10/2025 8:50 AM Arianne Lopez, RN * CardiacQuestionAnswerDate of AssessmentAuthorCardiac (WDL)WDL104/01/2024 8:50 AM Arianne Lopez RN * RespiratoryQuestionAnswerDate of AssessmentAuthorRespiratory (WDL)X104/01/2024 12:15 PM Mya Munroe RN * GenitourinaryQuestionAnswerDate of AssessmentAuthorGenitourinary (WDL)WDL 01/30/2025 12:15 PM Mya Munroe RN * NeurologicalQuestionAnswerDate of AssessmentAuthorNeuro (WDL)WDL104/01/2024 8:50 AM Arianne Lopez RN * QuestionAnswerDate of IvmcuzyunzBqvnvdMUZL5585/10/2025 11:25 AM ESTInterface, Device In * Pain AssessmentQuestionAnswerDate of AssessmentAuthorPain LocationAnkle 01/30/2025 9:32 AM Arianne Lopez RNPatient's Stated Pain GoalNo pain 01/30/2025 8:50 AM Arianne Lopez RNWong-Echols FACES Pain Rating0 01/30/2025 11:30 AM Mya Munroe RNPain TypeAcute pain01/30/2025 9:32 AM Arianne Lopez RNPain Score0 - No pain01/30/2025 9:32 AM Arianne Lopez RNPain AssessmentNo/denies pain01/30/2025 12:15 PM Mya Munroe RN * IntegumentaryQuestionAnswerDate of AssessmentAuthorIntegumentary (WDL)WDL 01/30/2025 8:50 AM Arianne Lopez RN * [place] Suicide Severity Rating ScaleQuestionAnswerDate of AssessmentAuthor1. Have you wished you were or wished you could go to sleep and not wake up? No01/30/2025 8:31 AM Arianne Lopez RN2. Have you actually had any thoughts of killing yourself?No01/30/2025 8:31 AM Arianne Lopez RN6. Have you ever done anything, started to do anything, or prepared to do anything to end your life?No01/30/2025 8:31 AM Arianne Lopez RN * Risk of SuicideAnswerDate of AssessmentAuthorNo Risk01/30/2025 8:31 AM Arianne Wiley RN * Modified AldreteQuestionAnswerDate of WtmfnpnpfxMthvpqGdizzjen815/10/2025 12:15 PM ESTMya Morales, FUZxfdepibsbe373/10/2025 12:15 PM Mya Munroe XXGcngkfnswnt076/10/2025 12:15 PM ESTIvory Moralesa, ZZIayyvnkqfpwhc004/10/2025 12:15 PM ESTIvory Moralesa, RNOxygen Jnhcfgzalg628/10/2025 12:15 PM Mya Munroe RNModified Cedric Cyxbj6836 12:15 PM Mya Munroe RN documented as of this encounter Mental Status * Modified AldreteQuestionAnswerEntry MbwjRajtfkQccsekjm031/10/2025 12:15 PM EST MoralesIvory regaladoa, BAMvbyjwstqas556/10/2025 12:15 PM Mya Munroe, RN Ikvhtjvvyeq993/10/2025 12:15 PM Ivory Munroea, QALotzzafunhawu114/10/2025 12:15 PM Mya Munroe, RNOxygen Ggipvhrcpe755/10/2025 12:15 PM Mya Munroe, RNModified Cedric Krwwn7883 12:15 PM Mya Munroe RN documented in this encounter Procedure Notes * Saurabh Nick MD - 01/30/2025 10:21 AM ESTAssociated Order(s): Airway Airway Date/Time: 01/30/2025 10:08 AM Reason: elective Airway not difficult General Information and Staff Patient location during procedure: OR Anesthesiologist: Saurabh Nick MD Resident/FILM COMPOSER/CAA: Bishnu Viera MD Performed: resident/FILM COMPOSER/CAA Learner assisted: GABBY Jade assisted with bagging and intubation. Patient Condition Indications for airway management: anesthesia Patient position: sniffing Planned trial extubation Sedation level: deep Final Airway Details Preoxygenated: yes Final airway type: endotracheal airway Successful airway: ETT Cuffed: yes Successful intubation technique: video laryngoscopy Adjuncts used in placement: intubating stylet Endotracheal tube insertion site: oral Blade: Best Blade size: #3 ETT size (mm): 8.5 Cormack-Lehane Classification: grade I - full view of glottis Placement verified by: chest auscultation and capnometry Measured from: lips ETT to lips (cm): 23 Number of attempts at approach: 1 Number of other approaches attempted: 0 documented in this encounter Miscellaneous Notes * Addendum Note - Bishnu Viera MD - 01/30/2025 4:42 PM EST Addendum created 01/30/251641 by Bisnhu Viera MD Intraprocedure Meds edited documented in this encounter Plan of Treatment Not on file documented as of this encounter Procedures Procedure NamePriorityDate/TimeAssociated DiagnosisCommentsPR AN ELECTIVE ENDOTRACHEAL BRQNJERzgrrby91/10/2025 10:08 AM EST documented in this encounter Results * CA AN ELECTIVE ENDOTRACHEAL AIRWAY (01/30/2025 10:08 AM EST) Narrative Saurabh Nick MD - 01/30/2025 10:08 AM EST Saurabh Nick MD 01/30/2025 10:41 AM Airway Date/Time: 01/30/2025 10:08 AM Reason: elective Airway not difficult General Information and Staff Patient location during procedure: OR Anesthesiologist: Saurabh Nick MD Resident/FILM COMPOSER/CAA: Bishnu Viera MD Performed: resident/FILM COMPOSER/CAA Learner assisted: GABBY Jade assisted with bagging and intubation. Patient Condition Indications for airway management: anesthesia Patient position: sniffing Planned trial extubation Sedation level: deep Final Airway Details Preoxygenated: yes Final airway type: endotracheal airway Successful airway: ETT Cuffed: yes Successful intubation technique: video laryngoscopy Adjuncts used in placement: intubating stylet Endotracheal tube insertion site: oral Blade: Best Blade size: #3 ETT size (mm): 8.5 Cormack-Lehane Classification: grade I - full view of glottis Placement verified by: chest auscultation and capnometry Measured from: lips ETT to lips (cm): 23 Number of attempts at approach: 1 Number of other approaches attempted: 0 Authorizing ProviderResult TypeResult StatusThomas Sandoval MDANESTHESIA ORDERABLESFinal Result documented in this encounter Visit Diagnoses * Anesthesia Postprocedure Evaluation - Saurabh Nick MD - 01/30/2025 1:22 PM EST Patient: Ciaran Mcnair Procedure Summary Date: 01/30/25 Room / Location: [facility] Main Operating Room; [facility] X-Ray Imaging Anesthesia Start: 958 Anesthesia Stop: 1132 Procedures: BRONCHOSCOPY FL IN OR FL IN OR Diagnosis: Lung mass Pain Scheduled Providers: Josefa Shah MD; Saurabh Nick MD; Bishnu Viera MD Responsible Provider: Saurabh Nick MD Anesthesia Type: general ASA Status: 3 Anesthesia Type: general Vitals Value Taken Time BP 113/60 01/30/25 11:45 Temp 36 ??C (96.8 ??F) 01/30/25 11:28 Pulse 94 01/30/25 11:57 Resp 14 01/30/25 11:39 SpO2 95 % 01/30/25 11:57 Vitals shown include unfiled device data. Anesthesia Post Evaluation Patient location during evaluation: PACU Patient participation: complete - patient participated Level of consciousness: awake and alert Pain score: 1 Pain management: adequate Multimodal analgesia pain management approach Airway patency: patent Two or more strategies used to mitigate risk of obstructive sleep apnea Cardiovascular status: hemodynamically stable Respiratory status: room air and nonlabored ventilation Hydration status: euvolemic Patient is hemodynamically stable and is able to be discharged from PACU per anesthesia protocol. There were no known notable events for this encounter. * Anesthesia Preprocedure Evaluation - Saurabh Nick MD - 01/30/2025 9:29 AM EST Patient: Ciaran Mcnair Procedure Information Date/Time: 01/30/25 1000 Scheduled providers: Josefa Shah MD; Saurabh Nick MD; Bishnu Viera MD Procedures: BRONCHOSCOPY FL IN OR Location: [facility] Main Operating Room Relevant Problems No relevant active problems Clinical information reviewed: Tobacco Meds Problems Med Hx Surg Hx Fam Hx Soc Hx Physical Exam Airway Mallampati: II TM distance: >3 FB Neck ROM: full Cardiovascular Rhythm: irregular Dental (+) edentulous Pulmonary Neurological Abdominal Other findings: Quit smoking March,; 6' 1 , 79.7 kg; Afib; has not been on blood thinner forseveral years - was d/c'd since he 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 Anesthesia Plan ASA 3 general The patient is not a current smoker. Patient was previously instructed to abstain from smoking on day of procedure. Patient did not smoke on day of procedure. intravenous induction Postoperative pain plan includes opioids. Trial extubation is planned. Anesthetic plan and risks discussed with patient. Use of blood products discussed with patient who consented to blood products. Plan discussed with resident. Additional Equipment Requests documented in this encounter Administered Medications Medication OrderMAR ActionAction DateDoseRateSite calcium chloride 100 mg/mL (10 %) intravenous syringe intravenous, As needed, Starting on Thu01/30/25 at 1026, Anesthesia Intraprocedure Given01/30/2025 10:34 AM IYP501 atAxvsp6701/30/2025 10:26 AM YBQ242 mg dexAMETHasone (Decadron) injection intravenous, As needed, Starting on Thu01/30/25 at 1026, Anesthesia Intraprocedure Given01/30/2025 10:26 AM EST10 mg ePHEDrine injection intravenous, As needed, Starting on Thu01/30/25 at 1010, Anesthesia Intraprocedure Given01/30/2025 10:10 AM EST20 mg fentaNYL (Sublimaze) injection intravenous, As needed, Starting on Thu01/30/25 at 1015, Anesthesia Intraprocedure Given01/30/2025 10:14 AM EST50 kdfQmkah94/10/2025 10:04 AM EST50 mcg lactated Ringer's infusion intravenous, Continuous PRN, Starting on Thu01/30/25 at 0959, Anesthesia Intraprocedure New Bag01/30/2025 9:59 AM EST1 mL/hr1 mL/hr lidocaine HCl (LTA Kit) 4 % vial intratracheal, As needed, Starting on Thu01/30/25 at 1004, Anesthesia Intraprocedure Given01/30/2025 10:04 AM EST1 kit lidocaine HCl (Xylocaine) 20 mg/mL (2 %) injection intravenous, As needed, Starting on Thu01/30/25 at 1004, Anesthesia Intraprocedure Given01/30/2025 10:04 AM KUU338 mg midazolam (Versed) injection intravenous, As needed, Starting on Thu01/30/25 at 0955, Anesthesia Intraprocedure Given01/30/2025 10:00 AM EST1 caGhdzz6501/30/2025 9:55 AM EST1 mg ondansetron (Zofran) injection intravenous, As needed, Starting on Thu01/30/25 at 1051, Anesthesia Intraprocedure Given01/30/2025 10:51 AM EST4 mg phenylephrine (Marvin-Synephrine) injection intravenous, As needed, Starting on Thu01/30/25 at 1010, Anesthesia Intraprocedure Given01/30/2025 10:39 AM TDC183 keqGscre10/10/2025 10:25 AM FGB037 mcgGiven 01/30/2025 10:10 AM JZZ326 mcg propofol (Diprivan) 10 mg/mL infusion intravenous, As needed, Starting on Thu01/30/25 at 1004, Anesthesia Intraprocedure Given01/30/2025 10:04 AM NXN618 mg rocuronium (ZeMuron) injection intravenous, As needed, Starting on Thu01/30/25 at 1004, Anesthesia Intraprocedure Given01/30/2025 10:04 AM EST50 mg sugammadex (Bridion) injection intravenous, As needed, Starting on Thu01/30/25 at 1113, Anesthesia Intraprocedure Given01/30/2025 11:13 AM PYE054 mgdocumented in this encounter
--- OUTSIDE RECORDS SUMMARY | 2025-01-30 10:03 | XMS_ITS | Encounter Summary ---
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 Name Role Phone Unavailable Primary Care Provider Unavailabl e Encounter Details DateTypeDepartmentCare Team (Latest Contact Info)Xubalqnpxge84/10/2025 10:03 AM EST - 01/30/2025 11:32 AM ESTHospital Encounter [facility] [address] [place] [address] Pain Discharge Disposition: Home or Self Care () Social History Tobacco UseTypesPacks/DayYears UsedDateSmoking Tobacco: FormerCigarettes Smokeless Tobacco: NeverAlcohol UseStandard Drinks/WeekCommentsYes0 (1 standard drink = 0.6 oz pure alcohol)OCCUT Safety & EnvironmentAnswerDate RecordedFear of Current or Ex-PartnerNot on file05/14/2023Emotionally AbusedNot on file 05/14/2023hysically AbusedNot on file05/14/2023Sexually AbusedNot on file 4Physically or Sexually AbusedNot on file05/14/2023Sex and Gender InformationValueDate RecordedSex Assigned at LxswgRobh23/10/2025 8:19 AM EST Legal OzdJvnz2709/18/2021 11:03 PM EDTGender AqjrctiqAmaq96/10/2025 8:19 AM EST Sexual OrientationHeterosexual or Tasjspsd69/10/2025 8:19 AM ESTdocumented as of this encounter Functional Status * QuestionAnswerDate of AssessmentAuthorHeart Rate OswgqqBrzslzz04/10/2025 9:32 AM Arianne Lopez RNRamsaiggy Scale (RS): Zptzr10504/01/2024 9:32 AM Arianne Lopez RN * QuestionAnswerDate of UkfbutntpwHjlshmOI602/6301/30/2025 11:30 AM Mya Munroe, MGKwhit3748/10/2025 11:30 AM Mya Munroe RN * Lior ScaleQuestionAnswerDate of AssessmentAuthorSensory Perceptions4 01/30/2025 8:50 AM Arianne Lopez, TLRoiqlkfd508/10/2025 8:50 AM Arianne Lopez, SBPujljhid637/10/2025 8:50 AM Arianne Lopez, XUNnfyuhzv306/10/2025 8:50 AM Arianne Lopez, XYLmedmveqx689/10/2025 8:50 AM Arianne Lopez, RNFriction and Pbxtz70304/01/2024 8:50 AM Arianne Lopez RNBraden Scale Uhkii6464/10/2025 8:50 AM Arianne Lopez RN * Pain Assessment TimerQuestionAnswerDate of AssessmentAuthorRestart Pain Assessment QbrndClw50/10/2025 11:30 AM Mya Munroe RN * Pain AssessmentQuestionAnswerDate of AssessmentAuthorPain LocationAnkle 01/30/2025 9:32 AM Arianne Lopez RNPatient's Stated Pain GoalNo pain 01/30/2025 8:50 AM Arianne Lopez RNWong-Onesimo FACES Pain Rating0 01/30/2025 11:30 AM Mya Munroe RNPain TypeAcute pain01/30/2025 9:32 AM Arianne Lopez RNPain Score0 - No pain01/30/2025 9:32 AM Arianne Lopez RNPain AssessmentWong-Echols FACES01/30/2025 11:30 AM Mya Munroe RN * Head, Ears, Eyes, Nose, and Throat (HEENT)QuestionAnswerDate of Assessment AuthorHead, Ears, Eyes, Nose, and Throat (WDL)WDL104/01/2024 11:30 AM Mya Munroe RN * QuestionAnswerDate of AssessmentAuthorTemp bmoDlsumyjx30/12/2024 9:32 AM Arianne Wiley RNHeart Rate RpfhyiIdnfozl07/10/2025 9:32 AM Arianne Lopez RNRamsay Scale (RS): Bbfsn13704/01/2024 9:32 AM Arianne Lopez RN * Vital SignsQuestionAnswerDate of HdzteigucfEbtknkCP753/6301/30/2025 11:30 AM Mya Munroe RNTemp96.8104/01/2024 11:28 AM Mya Munroe PPRthdu12 01/30/2025 11:30 AM Mya Munroe LSMkfy8897/10/2025 11:30 AM Mya Munroe MCZbR58977/10/2025 11:30 AM Mya Munroe RNMAP (mmHg)80104/01/2024 11:30 AM Mya Munroe RNPulse rate from Plethysmogram (bpm)9801/30/2025 11:30 AM Mya Munroe RN * QuestionAnswerDate of AssessmentAuthorLevel of ConsciousnessResponds to voice 01/30/2025 11:30 AM Mya Munroe RN * QuestionAnswerDate of AssessmentAuthorCardiac RhythmA-Fib01/30/2025 11:30 AM Mya Munroe RNCardiac UjqmggwaovVipuettaq74/10/2025 11:30 AM Mya Munroe RN * GastrointestinalQuestionAnswerDate of AssessmentAuthorGastrointestinal (WDL) WDL104/01/2024 11:30 AM Mya Munroe RN * Peripheral VascularQuestionAnswerDate of AssessmentAuthorPeripheral Vascular (WDL)WDL104/01/2024 11:30 AM Mya Munroe RN * MusculoskeletalQuestionAnswerDate of FjotpdnncpXcvbcpVTYDasovhcn13/10/2025 11:30 AM Mya Munroe RNLLEWeakness01/30/2025 11:30 AM Mya Munroe RNMusculoskeletal (WDL)X104/01/2024 11:30 AM Mya Munroe RN * PsychosocialQuestionAnswerDate of AssessmentAuthorPsychosocial (WDL)WDL 01/30/2025 8:50 AM Arianne Lopez RN * Lior ScaleQuestionAnswerDate of AssessmentAuthorSensory Perceptions4 01/30/2025 8:50 AM Arianne Lopez, LJCdhrwiwp195/10/2025 8:50 AM Arianne Lopez, PQCfgddcgl396/10/2025 8:50 AM Arianne Lopez, EMOxcyewoj861/10/2025 8:50 AM Arianne Lopez, QEUonairiyy808/10/2025 8:50 AM Arianne Lopez, RNFriction and Yclcv41704/01/2024 8:50 AM Arianne Lopez RNBraden Scale Qvzqe0827/10/2025 8:50 AM Arianne Lopez RN * CardiacQuestionAnswerDate of AssessmentAuthorCardiac (WDL)WDL104/01/2024 8:50 AM Arianne Lopez RN * RespiratoryQuestionAnswerDate of AssessmentAuthorRespiratory (WDL)X104/01/2024 11:30 AM Mya Munroe RN * GenitourinaryQuestionAnswerDate of AssessmentAuthorGenitourinary (WDL)WDL 01/30/2025 11:30 AM Mya Munroe RN * NeurologicalQuestionAnswerDate of AssessmentAuthorNeuro (WDL)WDL104/01/2024 8:50 AM Arianne Lopez RN * QuestionAnswerDate of JlfawkkzrkZccfqtEZIT7185/10/2025 11:25 AM ESTInterface, Device In * Pain AssessmentQuestionAnswerDate of AssessmentAuthorPain LocationAnkle 01/30/2025 9:32 AM Arianne Lopez RNPatient's Stated Pain GoalNo pain 01/30/2025 8:50 AM Arianne Lopez RNWong-Baker FACES Pain Rating0 01/30/2025 11:30 AM Mya Munroe RNPain TypeAcute pain01/30/2025 9:32 AM Arianne Lopez RNPain Score0 - No pain01/30/2025 9:32 AM Arianne Lopez RNPain AssessmentWong-Echols FACES01/30/2025 11:30 AM Mya Munroe RN * IntegumentaryQuestionAnswerDate of AssessmentAuthorIntegumentary (WDL)WDL 01/30/2025 8:50 AM Arianne Lopez RN * [place] Suicide Severity Rating ScaleQuestionAnswerDate of AssessmentAuthor1. Have [...] Arianne Wiley RN * Modified AldreteQuestionAnswerDate of LnffuykglwQifxtsCwatidxd160/10/2025 11:30 AM Mya Munroe RNRespiration2104/01/2024 11:30 AM Mya Munroe RNCirculation 11:30 AM Mya Munroe RNConsciousness 11:30 AM Mya Munroe RNOxygen Djdhoxomrj261/10/2025 11:30 AM Mya Munroe RNModified Cedric Uyagt75704/01/2024 11:30 AM Mya Munroe RN documented as of this encounter Mental Status * Modified AldreteQuestionAnswerEntry LdegOqgkbnBswahycq898/12/2024 11:30 AM EST Mya Morales RNRespiration2104/01/2024 11:30 AM Mya Munroe RN Bbhitozkmnk445/10/2025 11:30 AM Mya Munroe RNConsciousness 11:30 AM Mya Munroe RNOxygen Hpniumadpk078/10/2025 11:30 AM Mya Munroe RNModified Cedric Lzutv44304/01/2024 11:30 AM Mya Munroe RN documented in this encounter Medications at Time [...] hours if needed.documented as of this encounter Plan of Treatment Not on file documented as of this encounter Procedures Procedure NamePriorityDate/TimeAssociated DiagnosisCommentsFL LESS THAN 1 HOUR CYCXHORHROUJQODakhahj07/10/2025 11:00 AM EST Pain documented in this encounter Results * FL LESS THAN 1 HOUR INTRAOPERATIVE (01/30/2025 11:00 AM EST)Anatomical Region LateralityModalityX-Ray AngiographySpecimen (Source)Anatomical Location / LateralityCollection Method / VolumeCollection TimeReceived Time01/30/2025 11:51 AM EST Impressions 01/30/2025 11:52 AM EST Findings/Impression: * 0.77 mGy/air kerma * Intraoperative images demonstrate bronchoscope placement. Electronically signed: Saurabh Rendon. Narrative 01/30/2025 11:52 AM EST Clinical history: Pain Comparison: Views: 5 Procedure Note Saurabh Rendon MD - 01/30/2025 Clinical history: Pain Comparison: Views: 5 IMPRESSION: Findings/Impression: *0.77 mGy/air kerma *Intraoperative images demonstrate bronchoscope placement. Electronically signed: Saurabh Rendon. Authorizing ProviderResult TypeResult StatusMohamed Alyssa PATEL FLUOROSCOPY PROCEDURESFinal Result documented in this encounter Visit Diagnoses Diagnosis Pain Generalized pain documented in this encounter
--- OUTSIDE RECORDS SUMMARY | 2025-01-30 11:33 | XMS_ITS | Encounter Summary ---
Author Organization [facility] Address [address] [place] [address] Care Team Providers Care Manager Application Development Name Role Phone Unavailable Primary Care Provider Unavailabl e Encounter Details DateTypeDepartmentCare Team (Latest Contact Info)Pcltoqbyomx18/10/2025 11:33 AM EST - 01/30/2025 11:59 PM ESTHospital Encounter [facility] [address] [place] [address] Arrived Discharge Disposition: Home or Self Care () Social History Tobacco UseTypesPacks/DayYears UsedDateSmoking Tobacco: FormerCigarettes Smokeless Tobacco: NeverAlcohol UseStandard Drinks/WeekCommentsYes0 (1 standard drink = 0.6 oz pure alcohol)OCCUT Safety & EnvironmentAnswerDate RecordedFear of Current or Ex-PartnerNot on file05/14/2023Emotionally AbusedNot on file 05/14/2023hysically AbusedNot on file05/14/2023Sexually AbusedNot on file 4Physically or Sexually AbusedNot on file05/14/2023Sex and Gender InformationValueDate RecordedSex Assigned at PkwxbTrda00/10/2025 8:19 AM EST Legal PseRcen1209/18/2021 11:03 PM EDTGender DpdrtxcnMmhv97/10/2025 8:19 AM EST Sexual OrientationHeterosexual or Huukwyyu25/10/2025 8:19 AM ESTdocumented as of this encounter Functional Status * QuestionAnswerDate of AssessmentAuthorHeart Rate EbabviAzqnnqu16/10/2025 9:32 AM Arianne Lopez RNRamsaiggy Scale (RS): Lwiwv93904/01/2024 9:32 AM Arianne Lopez RN * QuestionAnswerDate of TfuzbbqhouAmjrkhMO384/8101/30/2025 12:15 PM Mya Munroe RNPulse8501/30/2025 12:15 PM Mya Munroe RN * Lior ScaleQuestionAnswerDate of AssessmentAuthorSensory Perceptions4 01/30/2025 8:50 AM Arianne Lopez, OPAxnzttjo068/10/2025 8:50 AM Arianne Lopez, OAOyjckmcv963/10/2025 8:50 AM Arianne Lopez, LMNdlyyyxj986/10/2025 8:50 AM Arianne Lopez, SCMuvprivtb228/10/2025 8:50 AM Arianne Lopez, RNFriction and Auyjy45004/01/2024 8:50 AM Arianne Lopez RNBraden Scale Xvmkv8959/10/2025 8:50 AM Arianne Lopez RN * Pain Assessment TimerQuestionAnswerDate of AssessmentAuthorRestart Pain Assessment TiornAyw43/10/2025 12:15 PM Mya Munroe RN * Pain [...] Mya Munroe RN * QuestionAnswerDate of AssessmentAuthorTemp kstHygbdqch52/12/2024 9:32 AM Arianne Wiley RNHeart Rate QpwdcqZncbkxc27/10/2025 9:32 AM Arianne Lopez RNRamsay Scale (RS): Dheed04504/01/2024 9:32 AM Arianne Lopez RN * Vital SignsQuestionAnswerDate of QtflizxnneEtwsjeJU743/8101/30/2025 12:15 PM Mya Munroe RNTemp96.8104/01/2024 11:28 AM Mya Munroe KQViegj67 01/30/2025 12:15 PM Mya Munroe HYHdca1189/10/2025 11:30 AM Mya Munroe AIFkH48509/10/2025 12:15 PM Mya Munroe RNMAP (mmHg)9501/30/2025 12:15 PM Mya Munroe RNPulse rate from Plethysmogram (bpm)9401/30/2025 12:15 PM Mya Munroe RN * QuestionAnswerDate of AssessmentAuthorLevel of ZdjrcirzngqjlVqgrd67/10/2025 12:15 PM Mya Munreo RNOrientation LevelOriented X4104/01/2024 12:15 PM Mya Munroe RN * QuestionAnswerDate of AssessmentAuthorCardiac RhythmA-Fib01/30/2025 12:15 PM Mya Munroe RNCardiac MnzjqkujatWgmwkpbql85/10/2025 12:15 PM Mya Munroe RN * GastrointestinalQuestionAnswerDate of AssessmentAuthorGastrointestinal (WDL) WDL104/01/2024 12:15 PM Mya Munroe RN * Peripheral VascularQuestionAnswerDate of AssessmentAuthorPeripheral Vascular (WDL)WDL104/01/2024 12:15 PM Mya Munroe RN * MusculoskeletalQuestionAnswerDate of MxzetbbbycIytzzmVECXdbilzgy68/10/2025 12:15 PM Mya Munroe RNLLEWeakness01/30/2025 12:15 PM Mya Munroe RNMusculoskeletal (WDL)X104/01/2024 12:15 PM Mya Munroe RN * PsychosocialQuestionAnswerDate of AssessmentAuthorPsychosocial (WDL)WDL 01/30/2025 8:50 AM Arianne Lopez RN * Lior ScaleQuestionAnswerDate of AssessmentAuthorSensory Perceptions4 01/30/2025 8:50 AM Arianne Lopez RNMoisture4104/01/2024 8:50 AM Arianne Wiley, GGCiuobrbi502/10/2025 8:50 AM Arianne Lopez RNMobility4 01/30/2025 8:50 AM Arianne Lopez MUQhiywvucm722/10/2025 8:50 AM Arianne Wiley, RNFriction and Romcy70804/01/2024 8:50 AM Arianne Lopez RN Lior Scale Qasdt1382/10/2025 8:50 AM Arianne Lopez RN * CardiacQuestionAnswerDate of AssessmentAuthorCardiac (WDL)WDL104/01/2024 8:50 AM Arianne Lopez RN * RespiratoryQuestionAnswerDate of AssessmentAuthorRespiratory (WDL)X104/01/2024 12:15 PM Mya Munroe RN * GenitourinaryQuestionAnswerDate of AssessmentAuthorGenitourinary (WDL)WDL 01/30/2025 12:15 PM Mya Munroe RN * NeurologicalQuestionAnswerDate of AssessmentAuthorNeuro (WDL)WDL104/01/2024 8:50 AM Arianne Lopez RN * QuestionAnswerDate of QirsphykqcOpvmwqASHO8787/10/2025 11:25 AM ESTInterface, Device In * Pain [...] 01/30/2025 8:50 AM Arianne Lopez RN * [place] Suicide Severity Rating ScaleQuestionAnswerDate of AssessmentAuthor1. Have [...] Arianne Wiley RN * Modified AldreteQuestionAnswerDate of IkrnbviyikEicnbgEvhulqde213/10/2025 12:15 PM Mya Munroe RNRespiration2104/01/2024 12:15 PM Mya Munroe RNCirculation2104/01/2024 12:15 PM Mya Munroe RNConsciousness 12:15 PM Mya Munroe RNOxygen Uwgwkpsnxm434/10/2025 12:15 PM Mya Munroe RNModified Cedric Coptb9050 12:15 PM Mya Munroe RN documented as of this encounter Mental Status * Modified AldreteQuestionAnswerEntry JowyTrfiflBgzpflyb311/10/2025 12:15 PM Mya Segal RNRespiration 12:15 PM Mya Munroe RN Dwldqigbarc424/10/2025 12:15 PM Mya Munroe RNConsciousness 12:15 PM Mya Munroe RNOxygen Avxooudmuu041/10/2025 12:15 PM Mya Munroe RNModified Cedric Ylmon9029 12:15 PM Mya Munroe RN documented in [...] CHEST 1 VIEWSTAT 01/30/2025 12:16 PM EST documented in this encounter Results * [...] signed: Walt Jimenez MD. Authorizing ProviderResult TypeResult StatusMohamed Alyssa PATEL XR PROCEDURES Final Result documented in this encounter Visit Diagnoses Not on filedocumented in this encounter
--- NOTE | 2025-02-01 06:41 | MR_ITS ---
[address] [address] Patient Name: SHAHRZAD EDGAR MRN: [id number] date: 1945 Sex: M Assigned Patient Location: MRI Current Patient Location: MRI Accession/Order Number: [id number] Exam Date: 02/01/2025 06:55 Report Date: 02/01/2025 10:29 At the request of: CRISTOFER PEÑA Procedure: MR head/brain wo/w con MR head/brain wo/w con 02/01/2025 7:51 AM SIGN AND SYMPTOMS: Recent fall, lung cancer diagnosis, weakness and difficulty ambulating PROTOCOL: Multiplanar multisequence MR images of the brain with and without IV contrast CONTRAST: 16 mL of intravenous Dotarem COMPARISON: 01/12/2025 FINDINGS: Extra axial spaces: There is age-related cortical atrophy. Hemorrhage: None. Ventricular system: Within normal limits. Basal cisterns: Within normal limits and not effaced. Cerebral parenchyma: Gliosis and encephalomalacia is noted in the right MCA territory predominantly affecting the right temporal and parietal lobes consistent with a remote infarct. This is present to a lesser extent in the left temporal and parietal region. Periventricular and subcortical white matter T2 and FLAIR hyperintense signal is noted suggesting chronic microvascular ischemic change. Midline shift: None.. Cerebellum: Within normal limits. Brainstem: Within normal limits. OTHER: Calvarium: Normal marrow signal. Vascular system: Satisfactory flow voids within the anterior and posterior circulation. Visualized Paranasal sinuses: Within normal limits. Visualized Orbits: Within normal limits. Visualized upper cervical spine: Within normal limits. Sella and skull base: Within normal limits. MR/MR head/brain wo/w con IMPRESSION: No evidence of intracranial metastatic disease. No acute intracranial pathology. 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 Impression dictated by: Robbie Fuentes M.D. 02/01/2025 10:29 AM Dictation Location: [place] [address] Electronically authenticated by: [id number] Y Date: 02/01/2025 10:29
--- OUTSIDE RECORDS SUMMARY | 2025-02-01 06:42 | XMS_ITS | Encounter Summary ---
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 Role Phone Unavailable Primary Care Provider Unavailabl e Encounter Details DateTypeDepartmentCare Team (Latest Contact Info)Mvydttfgjhk17/29/2025Orders Only Christelle Gonzalez [facility] [address] [place] [address] Aneta Mccray MA Social History Tobacco UseTypesPacks/DayYears UsedDateSmoking Tobacco: Never AssessedUT Safety & EnvironmentAnswerDate RecordedFear of Current or Ex-PartnerNot on file 05/14/2023Emotionally AbusedNot on file4Physically AbusedNot on file 05/14/2023Sexually AbusedNot on file4Physically or Sexually AbusedNot on file05/14/2023Sex and Gender InformationValueDate RecordedSex Assigned at DijdpEsap33/10/2025 8:19 AM ESTLegal FllQbgb0109/18/2021 11:03 PM EDTGender JdtvxbmcMews93/10/2025 8:19 AM ESTSexual OrientationHeterosexual or Straight 01/30/2025 8:19 AM ESTdocumented as of this encounter Plan of Treatment [...]
--- OUTSIDE RECORDS SUMMARY | 2025-02-01 06:42 | XMS_ITS | CCD ---
Author Organization [facility] Care Team Providers Care Cigar Packer Name Role Phone VERONICA LIZ Attending Unavailable HOUSE, VALENTE Primary Care Unavailable Michelle, Valente P Unavailable Unavailable Unavailable Saurabh Goyal Unavailable Unavailable Primary Care Provider Unavailkate saul MARKER, BENITA Referring Unavailable CHIRRI, ALLAN Admitting Unavailable CHIRRIANILL Attending Unavailable SONIA MCKINNEY Consulting Unavailable CRISTIN ORTEGA Consulting Unavailable JORGE LUISKENIA CUNHA Consulting Unavailab le ZOGRAFIDESFARIBA Consulting Unavailable HUAN MAYO Consulting Unavailable BLOOD, [...] Unavailable PAY ., DR ORLANDO Attending Unavailable BENTON, DR REINA Palacios Consulting Unavailable PAY ., [...] Care Provi miya Veronica Liz MD Unavailable Zachariah Ochoa MD Primary Care Provider Zachariah Ochoa MD Primary Care Provider MARCIANO HI Attending Unavailable MARCIANO HI Attending Unavailable MARCIANO HI Attending Unavailable MARCIANO HI Attending Unavailable MARCIANO HI Attending Unavailable TRABOULSSI, MOURHAF Attending Unavailable TRABOULSSI, MOURHAF Referring Unavailable ZACHARIAH OCHOA Primary Care Unavailable TRABLATRICEI, MOURHAF Referring Unavailable ZACHARIAH OCHOA Primary Care Unavailable TRABOULSSI, MOURHAF Attending Unavailable TRABOULSSI, MOURHAF Referring Unavailable TRABOULSSI, MOURHAF Attending Unavailable HOY, ZACHARIAH KENY Primary Care Unavailable VERONICA LIZ Referring Unavailable ZACHARIAH OCHOA Primary Care Unavailable Gilles Herrera DO Attending Provider Gilles Herrera Attending Unavailable Gilles Herrera Admitting Unavailable Faustino Wiley Attending Unavailable OMBALLI, MOHAMED Referring Unavailable OMBALLI, MOHAMED Referring Unavailable OMBALLI, MOHAMED Referring Unavailable OMBALLI, MOHAMED Referring Unavailable OMBALLI, MOHAMED Attending Unavailable OMBALLI, MOHAMED Referring Unavailable Allergies Allergy ClassificationReported Allergen(s)Allergy TypeDate of OnsetReaction(s) Facility (3 sources)Coconut extract; Translations: [COCONUT]Drug Zgyhuyh08-19-1822OtstzxhOhio[facility] (1 source)coconut allergenic extractDrug Ikrpzzd70-92-8494IjicpwaesdfTXTDickenson Community Hospital (1 source)Coconut extractDrug Aiwfluz77-24-4338TltKet[facility] Repository (4 sources)Coconut Oil OIL; Translations: [Coconut Oil OIL]Allergy to drug (finding)-[facility] DO Work Phone: (10 sources)Coconut Oil; Translations: [COCONUT OIL]Drug Exzgllr18-12-9030QfojuSouth[facility] Center (1 source)Coconut extractDrug Qfafxed17-12-6894GntapxoidMetrohealth [facility] Repository (1 source)traMADol; Translations: [TRAMADOL]Drug Rlijmrv06-55-1953WkpzjoiinrMansfield Hospital Repository Medications Current Medications MedicationDrug Class(es)DatesSig (Normalized)Sig (Original)amiodarone hydrochloride 200 mg oral tablet (3 sources)AntiarrhythmicStart: 12-08-2021 End: 84-38-1058pvhp 1 tablet by mouth once dailyamiodarone (CORDARONE) 200 MG tablet Take 1 tablet by mouth daily 90 tablet 0 12/08/2021 03/08/2022ctive Start: 12-03-2021 End: 42-79-4664mmmu 1 tablet by mouth twice dailyamiodarone (CORDARONE) 200 MG tablet Take 1 tablet by mouth 2 times daily for 9 doses 9 tablet 0 12/03/2021 12/08/2021 ActiveStart: 12-03-2021 End: 32-45-4632afpuyhfwql (CORDARONE) tablet 200 mgAspir-81 (2 sources)Aspir-81 Activeaspirin 81 mg delayed release oral tablet (20 sources)Platelet Aggregation Inhibitor, Nonsteroidal Anti-inflammatory Drug Start: 05-30-2020 End: 89-88-1708lkar 1 tablet by mouth once dailyStart: 05-29-2020 End: 61-41-5194tsre 1 tablet by mouth once dailyAspirin 81 mg Tablet Discontinued 81 MG PO Daily May 29, 2020 1:00am May 30, 2020 1:41pmStart: 03-31-2019 End: 21-85-1367jmeh 1 tablet by mouth once dailyAspirin (Aspir-81) 81 mg Tablet,Delayed Release (Dr/Ec) Discontinued 81 MG PO Daily March 31, 2019 1:00am April 20, 2019 12:16pmatorvastatin 80 mg oral tablet (20 sources)HMG-CoA Reductase InhibitorStart: 35-15-1350mmii 1 tablet by mouth once daily in the eveningbelladonna alkaloids 16.2 mg / opium 60 mg rectal suppository (1 source)Start: 67-33-5092zgbfi-belladonna (B&O SUPPRETTES) 16.2-60 MG suppository 60 mgcefdinir 300 mg oral capsule (2 sources)Cephalosporin AntibacterialStart: 12-02-2021 End: 57-18-3130tsse 1 capsule by mouth every twelve hourscefdinir (OMNICEF) 300 MG capsule Take 1 capsule by mouth every 12 hours for 8 doses 8 capsule 0 12/07/2021 Active0.3 ml enoxaparin sodium 100 mg/ml prefilled syringe (1 source)Low Molecular Weight HeparinStart: 41-67-6426bzdbtbrqvb Sodium (LOVENOX) injection 30 mgglucagon (rdna) 1 mg injection (1 source)Antihypoglycemic AgentStart: 17-12-4206sfhuiyxm (rDNA) injection 1 mg 1000 ml glucose 100 mg/ml injection (3 sources)Start: 14-81-4207gutljlds 10 % infusionStart: 29-59-1103qhkrqatl bolus 10% 125 mLStart: 11-12-2202mdfhifv chewable tablet 16 ghyoscyamine sulfate 0.125 mg sublingual tablet (1 source)Start: 17-60-8280czadpmacmkz (LEVSIN/SL) sublingual tablet 125 mcg ibuprofen 400 mg oral tablet (8 sources)Nonsteroidal Anti-inflammatory Drugtake 1 tablet by mouth twice daily ibuprofen 400 MG tablet Take 1 tablet twice a day by oral route. Activeinsulin lispro 100 unt/ml injectable solution (3 sources)Insulin AnalogStart: 11-28-2021 End: 35-46-1652ohejwjl lispro (HUMALOG) injection vial 0-16 Unitslabetalol hydrochloride 5 mg/ml injectable solution (1 source)beta-Adrenergic BlockerStart: 75-54-7580xufbvxlyj (NORMODYNE;TRANDATE) injection 10 mglisinopril 10 mg oral tablet (20 sources)Angiotensin Converting Enzyme InhibitorStart: 19-33-4245wfek 0.5 tablet by mouth once dailylisinopril 10 mg tablet Take 0.5 tablets (5 mg) by mouth once daily. 11/04/2023 ActiveStart: 56-11-1751ofkcvobbdj 10 mg tablet 1 tablet (10 mg) once daily. 11/04/2023 ActiveStart: 15-68-4905zcgj 1 tablet by mouth once dailylisinopril (PRINIVIL;ZESTRIL) 10 MG tablet Take 1 tablet by mouth daily 30 tablet 3 12/03/2021 ActiveStart: 11-27-2021 End: 75-78-6986pzts 1 tablet by mouth once dailyLisinopril 5 MG Oral Tablet TAKE 1 TABLET DAILY. Quantity: 90 Refills: 3 Ordered: 27-Nov-2021 Veronica Liz MD Start : 27-Nov-2021 Active new doseStart: 04-01-2019 End: 20-42-0785nubx 1 tablet by mouth once dailyloperamide hydrochloride 2 mg oral capsule (1 source)Opioid AgonistStart: 19-25-5829mxwtfusdfu (IMODIUM) capsule 2 mg magnesium oxide 400 mg oral tablet (1 source)Start: 11-11-2024 End: 18-60-4897tdca 1 tablet by mouth twice dailymagnesium oxide (Mag-Ox) 400 mg (241.3 mg elemental) tablet Indications: Persistent atrial fibrillation (Multi) Take 1 tablet by mouth 2 times a day. 11/11/2024 11/11/2025 Activemetoprolol tartrate 25 mg oral tablet (7 sources)beta-Adrenergic BlockerStart: 92-73-3170mzqc 1 tablet by mouth twice dailymetoprolol tartrate (LOPRESSOR) 25 MG tablet Take 1 tablet by mouth 2 times daily 60 tablet 3 12/03/2021 ActiveStart: 15-86-6544dappsicwes (LOPRESSOR) injection 5 mgStart: 03-31-2019 End: 13-79-7954Jvuteltzxk Tartrate 50 mg tablet Discontinued 75 MG PO Twice daily March 31, 2019 4:13pm 2019 12:16pmStart: 03-31-2019 End: 37-73-8148sjzx 75 mg by mouth twice dailyMetoprolol Tartrate Discontinued 75 MG PO Twice daily March 31, 2019 4:13pm April 20, 2019 12:16pmStart: 05-13-2018 End: 23-11-0695ihbi 1 tablet by mouth twice dailyMetoprolol Tartrate 50 mg Tablet Discontinued 50 MG PO Twice daily 60 May 13, 2018 1:00am March 31, 2019 4:13pmondansetron (ZOFRAN-ODT) disintegrating tablet 4 mg (1 source)Start: 75-96-7023umotizboilq (ZOFRAN-ODT) disintegrating tablet 4 mg SITagliptin 100 mg oral tablet (9 sources)Dipeptidyl Peptidase 4 InhibitorStart: 08-81-1709qfib 1 tablet by mouth once daily5 ml sodium chloride 9 mg/ml injection (2 sources)Start: 52-00-9507agrfqo chloride flush 0.9 % injection 10 mLStart: 11-28-2021 End: .9 % sodium chloride infusionsotalol hydrochloride 80 mg oral tablet (20 sources)AntiarrhythmicStart: 10-26-2024 End: 18-93-8535pwka 0.5 tablet by mouth three times dailysotalol (Betapace) 80 mg tablet Indications: Persistent atrial fibrillation (Multi) Take 0.5 tablets (40 mg) by mouth 3 times a day. 135 tablet 3 10/26/2024 10/26/2025 ActiveStart: 12-11-2023 End: 03-60-3812hfzj 1 tablet by mouth every twelve hourssotalol (Betapace) 80 mg tablet Take 1 tablet (80 mg) by mouth every 12 hours. 12/11/2023 10/26/2024 Discontinued (Reorder)Start: 08-21-2023 End: 72-10-8968lgvd 1 tablet by mouth twice dailysotalol (sotalol AF) 120 mg tablet Indications: Persistent atrial fibrillation (Multi) Take 1 tablet (120 mg) by mouth 2 times a day. 180 tablet 3 08/21/2023 01/28/2024 Discontinued (Dose adjustment)Start: 72-28-9732akcr 1 tablet by mouth twice dailysotalol AF (Betapace AF) 120 MG tablet TAKE 1/2 TABLET TWICE A DAY BY MOUTH 03/11/2023 ActiveStart: 72-76-3788yorl 1 tablet by mouth twice dailysotalol AF 120 mg tablet Indications: Persistent atrial fibrillation (Multi) TAKE 1/2 TABLET BY MOUTH TWICE A DAY 90 tablet 1 03/11/2023 ActiveStart: 97-09-4017rxph 1 tablet by mouth twice dailySotalol HCl (AF) 120 MG Oral Tablet take 1/2 tablet by mouth twice daily Quantity: 90 Refills: 1 Ordered: 06-Jun-2022 Veronica Liz MD Start : 17-Feb-2022 ActiveStart: 04-20-2019 End: 98-08-4556jvxk 0.5 tablet by mouth twice dailysotalol AF [...] 0.4 mg oral capsule (2 sources)alpha-Adrenergic BlockerStart: 71-09-5970wbpr 1 capsule by mouth once dailytamsulosin (FLOMAX) 0.4 MG capsule Take 1 capsule by mouth daily 30 capsule 3 12/03/2021 Active Completed/Discontinued Medications MedicationDrug Class(es)DatesSig (Normalized)Sig (Original)acetaminophen 500 mg oral tablet (3 sources)Start: 11-29-2021 End: 54-83-8350psgoukptfdtkk (TYLENOL) tablet 1,000 mgStart: 11-28-2021 acetaminophen (TYLENOL) tablet 650 mgamoxicillin 875 mg / clavulanate 125 mg oral tablet (1 source)Penicillin-class AntibacterialStart: 11-28-2021 End: 42-17-1045ttwpseizyfq-clavulanate (AUGMENTIN) 875-125 MG per tablet 1 tabletapixaban 5 mg oral tablet (4 sources)Factor Xa InhibitorStart: 05-13-2018 End: 81-20-1502xult 1 tablet by mouth twice dailyApixaban (Eliquis) 5 mg Tablet Discontinued 5 MG PO Twice daily 60 April 01, 2019 1:00am May 30, 2020 1:41pm50 ml calcium gluconate 20 mg/ml injection (1 source)Start: 11-29-2021 End: 85-76-8042tenknpk gluconate 1000 mg in sodium chloride 50 mLcefTRIAXone (ROCEPHIN) 1,000 mg in sterile water 10 mL IV syringe (1 source)Start: 11-28-2021 End: 61-12-4599tmbAMQYOleo (ROCEPHIN) 1,000 mg in sterile water 10 mL IV syringe cephalexin 500 mg oral capsule (3 sources)Cephalosporin AntibacterialStart: 11-27-8161wtzc 1 capsule by mouth every eight hoursCephalexin 500 MG Oral Capsule TAKE 1 CAPSULE BY MOUTH EVERY 8 HOURS Quantity: 30 Refills: 0 Ordered: 01-Dec-2020 DO Start : 01-Dec-2020 CompleteStart: 05-14-2018 End: 17-54-2558ykzv 1 capsule by mouth twice dailyCephalexin 500 mg capsule Discontinued 500 MG PO Twice daily 09 01May 14, 2018 1:00am March 31, 2019 4:09pmclopidogrel 75 mg oral tablet (2 sources)P2Y12 Platelet InhibitorStart: 04-01-2019 End: 26-16-2764gjgo 1 tablet by mouth once dailyClopidogrel (Plavix) 75 mg tablet Discontinued 75 MG PO Daily April 01, 2019 1:00am April 20, 2019 12:16pm1 ml dexamethasone phosphate 4 mg/ml injection (1 source)CorticosteroidStart: 11-28-2021 End: 19-73-7851nlfjsphzjxchv (DECADRON) injection 4 mgdexamethasone 1 mg/ml / tobramycin 3 mg/ml ophthalmic suspension (1 source)Aminoglycoside Antibacterial, CorticosteroidStart: 20-13-3071meiu 2 drop(s) into the eye(s) four times dailyTobramycin-Dexamethasone 0.3-0.1 % Ophthalmic Suspension PLACE 2 DROPS INTO BOTH EYES 4 TIMES A DAYQuantity: 5 Refills: 0 Ordered: 22-Aug-2021 DO Start : 22-Aug-2021 Complete1 ml diphenhydrAMINE hydrochloride 50 mg/ml cartridge (1 source)Histamine-1 Receptor AntagonistStart: 11-30-2021 End: 50-00-8780cnttbsijdaBEDUJ (BENADRYL) injection 25 mgfamotidine (PEPCID) 20 mg in sodium chloride (PF) 10 mL injection (1 source)Start: 11-28-2021 End: 34-56-7792lzwikcqbwi (PEPCID) 20 mg in sodium chloride (PF) 10 mL injection gadoteridol (PROHANCE) injection 20 mL (1 source)Start: 11-28-2021 End: 17-91-4662efqoipvqlit (PROHANCE) injection 20 mLiopamidol (ISOVUE-370) 76 % injection 90 mL (1 source)Start: 11-28-2021 End: 10-86-8372ipehmuvto (ISOVUE-370) 76 % injection 90 mL5 ml levETIRAcetam 100 mg/ml injection (1 source)Start: 11-28-2021 End: 12-73-9708ogvNCQRPygclo (KEPPRA) injection 500 mg100 ml magnesium sulfate 10 mg/ml injection (2 sources)Start: 11-29-2021 End: 73-21-6000ecqnyffzz sulfate 1000 mg in dextrose 5% 100 mL IVPBStart: 11-28-2021 End: 93-71-1527fzdcxwtwm sulfate 4000 mg in 100 mL IVPB premixmetFORMIN hydrochloride 500 mg oral tablet (2 sources)BiguanideStart: 05-13-2018 End: 53-58-5625wgot 1 tablet by mouth twice daily at mealtimeMetformin 500 mg Tablet Discontinued 500 MG PO Twice daily with meals 60 May 13, 2018 1:00amMarch 31, 2019 4:09pmmethylPREDNISolone 4 MG Oral Tablet Therapy Pack (1 source)Start: 19-37-6085owdxzzBOALAGUqlycx 4 MG Oral Tablet Therapy Pack TAKE [...] topical ointment (1 source)RNA Synthetase Inhibitor AntibacterialStart: 06-49-1527Fozadxfau 2 % External Ointment APPLY TOPICALLY 3 TIMES DAILY Quantity: 22 Refills: 0 Ordered: 01-Dec-2020 DO Start : 01-Dec-2020 CompleteniCARdipine (CARDENE) 20 mg in 0.9 % sodium chloride 200 mL solution (1 source)Start: 11-28-2021 End: 77-52-2894xyLVSvvyfgv (CARDENE) 20 mg in 0.9 % sodium chloride 200 mL solutionnitroglycerin 0.4 mg sublingual tablet (10 sources)Nitrate VasodilatorStart: 21-56-3425Ejcufdlyvhusz 0.4 MG Sublingual Tablet Sublingual DISSOLVE 1 TABLET UNDER THE TONGUE NEEDED Quantity: 25 Refills: 0 Ordered: 26-Dec-2021 DO Start : 26-Dec-2021 ActiveStart: 04-01-2019 End: 14-16-5526Mhqcgawxtnlae 0.4 mg Tablet, Sublingual Discontinued 0.4 MG SUBLINGUAL Q5M as needed for Chest Pain25 April 01, 2019 1:00am July 31, 2020 1:34pmofloxacin 3 mg/ml ophthalmic solution (2 sources)Quinolone AntimicrobialStart: 11-30-2021 End: 35-77-2335lxaagccng (OCUFLOX) 0.3 % solution 5 dropStart: 11-28-2021 End: 11-03-2767mwwszdrva (OCUFLOX) 0.3 % solution 10 dropomeprazole 20 mg delayed release oral capsule (2 sources)Proton Pump InhibitorStart: 05-30-2020 End: 57-17-5394fktq 1 capsule by mouth once dailyOmeprazole 20 mg Capsule,Delayed Release(Dr/Ec) Discontinued 20 MG PO Daily May 30, 2020 1:00am July 31, 2020 1:34pmpolysaccharide iron complex 150 mg oral capsule (2 sources)Start: 04-20-2019 End: 09-11-2421Ivaxnvbqddsmeq Iron Complex 150 mg iron capsule Discontinued 150 MG PO Every 48 hours April 20, 2019 1:00am June 12, 2020 2:24pm2 ml prochlorperazine 5 mg/ml injection (1 source)PhenothiazineStart: 11-30-2021 End: 02-31-2001knpznkxqbkrnozeu (COMPAZINE) injection 10 mgsulfamethoxazole 800 mg / trimethoprim 160 mg oral tablet (1 source)Dihydrofolate Reductase Inhibitor Antibacterial, Sulfonamide AntimicrobialStart: 79-03-8321abmv 1 tablet by mouth twice daily Sulfamethoxazole-Trimethoprim 800-160 MG Oral Tablet TAKE 1 TABLET BY MOUTH TWICE A DAY FOR 1 WEEK Quantity: 14 Refills: 0 Ordered: 22-Aug-2021 DO Start : 22-Aug-2021 CompletetraMADol hydrochloride 50 mg oral tablet (1 source)Opioid AgonistStart: 73-82-0859oiwp 1 tablet by mouth every four hours as needed for paintraMADol HCl - 50 MG Oral Tablet TAKE ONE TABLET BY MOUTH EVERY 4 HOURS NEEDED FOR PAIN Quantity: 20 Refills: 0 Ordered: 01-Dec-2020 DO Start : 01-Dec-2020 Completevancomycin (VANCOCIN) 1750 mg in sodium chloride 0.9 % 500 mL IVPB (1 source)Start: 11-28-2021 End: 88-74-7865tcyldbhram (VANCOCIN) 1750 mg in sodium chloride 0.9 % 500 mL IVPB Problems Active Problems Problem ClassificationProblemDateDocumented DateEpisodic/ChronicAcquired foot deformities (4 sources)Right foot drop; Translations: [Foot drop, right foot]01-07-2024 EpisodicAcute cerebrovascular disease (19 sources)Cerebrovascular accident; Translations: [Cerebral infarction, unspecified]Onset: 66-79-1806GcyfiaiEcfro myocardial infarction (2 sources)Acute myocardial infarction of inferior wall; Translations: [ST elevation (STEMI) myocardial infarction involving other coronary artery of inferior wall]77-98-7453WwjkaxaOfymgoibw infection; unspecified site (2 sources)Bacteremia; Translations: [Bacteremia]90-43-1496DtbcdrekNwoicfu tract disease (4 sources)Cholangiectasis; Translations: [Other specified diseases of biliary tract]36-32-0817DuxtpyqIwaaasu tract disease (2 sources)Common bile duct calculus; Translations: [Calculus of bile duct without cholangitis or cholecystitis without obstruction]44-39-5442Dbhhpazm Cardiac dysrhythmias (20 sources)Paroxysmal atrial fibrillation; Translations: [Cardiac arrhythmia, unspecified]Onset: 44-58-0675QvwhhhgAmxxlkc obstructive pulmonary disease and bronchiectasis (6 sources)Chronic obstructive pulmonary disease, unspecified; Translations: [Chronic obstructive lung disease]Onset: 37-78-1919GzsmzngBfmzhewx atherosclerosis and other heart disease (20 sources)Single coronary vessel disease; Translations: [Coronary atherosclerosis of unspecified type of vessel, sioux or graft]Onset: 09-25-2021 30-54-5798GsznoykNujkavt on above:Problem List clean-up per request of Phys. EHR CmteCoronary atherosclerosis and other heart disease (2 sources)Past history of procedure; Translations: [Coronary angioplasty status]08-47-0307VpdowtzxWjhbrdbxmp and other anemia (2 sources)Anemia due to blood loss; Translations: [Iron deficiency anemia secondary to blood loss (chronic)]12-89-5210KxkmmnoEtliuusyyk and other anemia (20 sources)Anemia; Translations: [Anemia, unspecified]Onset: 09-46-7940Pabywwlz Comment on above:Problem List clean-up per request of Phys. EHR CmteDeficiency and other anemia (2 sources)Microcytic anemia; Translations: [Iron deficiency anemia, unspecified]EpisodicDeficiency and other anemia (6 sources)Anemia, unspecified; Translations: [ANEMIA UNSPECIFIED]Onset: 40-91-6728PmjxlstrFkpmsxtr mellitus with complications (3 sources)Polyneuropathy due to diabetes mellitus; Translations: [Diabetes 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]03-17-2024 ChronicDiabetes mellitus without complication (5 sources)Type 2 diabetes mellitus without complication; Translations: [Type 2 diabetes mellitus without complications]Onset: 69-06-8210GjohhsiFtupxwm on above:Problem List clean-up per request of Phys. EHR CmteDisorders of lipid metabolism (20 sources)Hyperlipidemia; Translations: [Other and unspecified hyperlipidemia] Onset: 441192-53-9297QdffqbgHjlprgu on above:Problem List clean-up per request of Phys. EHR CmteE Codes: Fall (2 sources)Fall on same level, unspecified, initial encounter; Translations: [Fall on same level from slipping, tripping and stumbling with subsequent striking against other object, initial encounter]Onset: 46-95-4322Ccvbrbkf Esophageal disorders (1 source)Gastro-esophageal reflux disease without esophagitis; Translations: [GERD WITHOUT ESOPHAGITIS]Onset: 26-25-1208EgiowfeBpxijwlfp hypertension (20 sources)Essential hypertension; Translations: [Unspecified essential hypertension]Onset: 38-43-3044OuzeyeiUieuk and electrolyte disorders (2 sources)Hyponatremia; Translations: [Hypo-osmolality and hyponatremia]Onset: 35-05-6676AwzmlrbkQnivhrnc; including migraine (4 sources)Headache; including migraine; Translations: [HEADACHE UNSPECIFIED] Onset: 21-78-3190Dpoejvrajcqne and screening for infectious disease (8 sources)Patient encounter status; Translations: [Other specified vaccination] EpisodicLate effects of cerebrovascular disease (5 sources)Dysphagia following cerebral infarction; Translations: [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 EHR Cmte Occlusion or stenosis of precerebral arteries (8 sources)Right carotid artery stenosis; Translations: [Occlusion and stenosis of right carotid artery]Onset: 267716-49-7216CcdlbcbWrucycfqqbdezq (1 source)Unspecified osteoarthritis, unspecified site; Translations: [UNSPECIFIED OSTEOARTHRITIS UNS SITE]Onset: 49-16-7177FfhhdkmJdlav aftercare (8 sources)Drug therapy finding; Translations: [Long-term (current) use of other medications]EpisodicOther aftercare (1 source)[facility] (current) use of aspirin; Translations: [MAORI PHYSIOTHERAPIST CURRENT USE OF ASPIRIN]Onset: 77-58-8715AgawfmeaGvidu aftercare (3 sources)Other chcf (current) drug therapy; Translations: [OTH PENITENTIARY CURRENT DRUG THERAPY]Onset: 49-50-1981ThlkuuqtMkcbz aftercare (16 sources)Taking high risk medication; Translations: [Other chcf (current) drug therapy]Onset: 771023-67-8929YmjzydzxIlgjk circulatory disease (1 source)Personal history of transient ischemic attack (TIA), and cerebral infarction without residual deficits; Translations: [PERS HX TIA AND CI NO RESID DEFICIT]Onset: 26-41-1152XmezgkagFdqpb hematologic conditions (1 source)Other specified abnormalities of plasma proteins; Translations: [OTH SPEC ABNORM PLASMA PROTEINS]Onset: 41-71-8406JykcynvrIcpme injuries and conditions due to external causes (1 source)Unspecified injury of head, initial encounter; Translations: [UNSPECIFIED INJURY HEAD INITIAL ENC]Onset: 36-46-4233OhipaqsfDajci lower respiratory disease (1 source)Shortness of breathOnset: 18-25-5830YqovrqwjFwpea lower respiratory disease (2 sources)Other nonspecific abnormal finding of lung field; Translations: [Other nonspecific abnormal findingof lung field]Onset: 84-14-1166AiypxiakQrecs nutritional; endocrine; and metabolic disorders (1 source)Morbid (severe) obesity due to excess calories; Translations: [MORBID SEVERE OBES D/T EXCESS DELVIN]Onset: 86-59-5335PawaophZeopx nutritional; endocrine; and metabolic disorders (1 source)Body mass index (BMI) 30.0-30.9, adult; Translations: [BODY MASS INDEX BMI 30.0-30.9 ADULT]Onset: 09-72-9001EugphirXoeyk screening for suspected conditions (not mental disorders or infectious disease) (8 sources)Hormone level - finding; Translations: [Other specified abnormal findings of blood chemistry]Onset: 530182-44-5943HzlhbpbySwasjzo on above: Problem List clean-up per request of Phys. EHR CmteOther skin disorders (4 sources)Asteatosis cutis; Translations: [Xerosis cutis]56-74-7407Inqstwrd Otitis media and related conditions (2 sources)Otitis media; Translations: [Unspecified nonsuppurative otitis media, left ear]Onset: 97-86-2180CvarngrhPyhvmvjlse and visceral atherosclerosis (3 sources)Peripheral vascular disease, unspecified; Translations: [Peripheral vascular disease]Onset: 268801-26-0408ZaethtiCljsnrg on above:Problem List clean-up per request of Phys. EHR CmteResidual codes; unclassified (1 source)Acquired absence of other specified parts of digestive tract; Translations: [ACQ ABSENCE OTH PART DIGESTV TRACT]Onset: 77-68-1045Pfwaqnfk Residual codes; unclassified (4 sources)Body mass index 20-24 - normal; Translations: [Body mass index (BMI) 24.0-24.9, adult]Onset: 814453-65-2178UtrzknyjVhxnszxb codes; unclassified (2 sources)Body mass index (BMI) 24.0-24.9, adult; Translations: [Body mass index (BMI) 24.0-24.9, adult]Onset: 52-47-9262CqlyrkavVfoeyxkn codes; unclassified (2 sources)Pain, unspecified; Translations: [Pain, unspecified]Onset: 01-30-2025 EpisodicScreening and history of mental health and substance abuse codes (20 sources)Ex-smoker; Translations: [Personal history of tobacco use]Onset: 730699-47-6086LfisndcvSemxvjp on above:QUIT MAR 2019;Substance-related disorders (3 sources)Nicotine dependence, unspecified, uncomplicated; Translations: [Tobacco user]Onset: 130452-65-4328XbbunysBdxhyut (3 sources)Syncope and collapse; Translations: [Syncope]Onset: 04-23-2022 44-20-2555QoyqhxjfQjtarsm on above:Problem List clean-up per request of Phys. EHR CmteTransient cerebral ischemia (10 sources)Transient cerebral ischemic attack, unspecified; Translations: [Transient cerebral ischemia]Onset: 10-44-6412HwqfmjfRzuyfysijydw (1 source)[facility] (current) use of oral hypoglycemic drugsOnset: 06-10-2018 Unclassified (1 source)CONTACT W/AND (SUSP) EXPOS COVID-19;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 [address] [place] [place], [place] [address]Eqj-Zokbftg Noteon 46-91-1782Grf-Arrival NotePre-Arrival Note Pre-Arrival Summary Name: , CItizens Current Date: 01/12/2025 13:16:55 EDT Gender: Male Date of : Age: 79 Pre-Arrival Type: EMS ETA: 01/12/2025 13:31:00 EDT Primary Care Physician: Presenting Problem: fall; left shoulder pain Pre-Arrival User: Zaynab Foster RN Referring Source: Location: [place] Completion Date/Time: 01/12/2025 13:02:00 [facility] Emergency Department Pre-Hospital Report Form Vital Signs: Pre-Hospital Report: fall; +hit head, -loc, -thinners. +Cp. left shoulder pain. deformity 2 ribs onleft side Treatment in Route: Response to Treatment: Misc. Issues:NormalMount Carmel Health SystemTroponinon 17-97-2552Jqhjjvce HS 5.10 pg/mLLow15.90-38.40Mount [facility]el Health SystemComment on above:Result Comment: The 95% CI (Confidence Interval) PPV (Positive Predictive Value) for myocardial infarction in females is 38 pg/mL, in males 51 pg/mL. The results should be used in conjunction with clinical conditions of myocardial infarction. (Access High Sensitivity Troponin I Instructions For Use, Vipin Bahman, October 2017)Performed By: #### [id number] #### [facility] [address], [place] [address]OH Chest Single Viewon 22-09-3199WO Chest Single ViewExam Date/Time: 01/12/2025 13:51 EDT [...] Will Matson MD Transcribed by: MARLYS Technologist: ZAYDADayton VA Medical CenterXR Shoulder Complete Lefton 78-33-9714YF Shoulder Complete LeftExam Date/Time: 01/12/2025 13:52 EDT [...] Will Matson MD Transcribed by: MARLYS Technologist: SALVADORMorrow County HospitaleGFRon 46-50-5297kQGK09 mL/min/1.73 m2Low>=59Mount [facility] Health SystemComment on above:Performed By: #### [id number] #### [facility] [address], [place] [address]Ksdlj Cultureon 67-83-2893Aoqfsfey identified Cx Nom (U)No Growth 2 Days PERFORMED BY: [facility] [address] [id number] PATHOLOGIST ANODIC TREATER MAYRA RANGEL M.D.[facility] Physician GroupComment on above: Performed By: #### CUU #### [place] [id number] USAECG 12 [place] 70-65-6735Vfgkb rhythm with occasional PACs QTc Miri is [address] [facility] Work Phone: [phone] 12 [place] 75-46-0897Nebluq sinus rhythm with prolonged QTc interval of [address] [facility] Work Phone: ecg 12 [place] 81-23-7519Gwmblq sinus rhythm with 1 PVC and QTc interval is borderline prolonged at [facility] Work Phone: [phone] 12 [place] 28-47-6931Zdsyep sinus rhythm with a QTc interval of [address] [facility] Work Phone: [phone] 12 [place] 04-75-5363Bobcrp fibrillation with nonspecific ST-T changesFlower Hospital Work Phone: ecg 12 [place] 53-54-5162Cyhlgk sinus rhythm with a QTc interval of 481 [facility] Work Phone: Tobacco Screening.on 83-33-3346Iukpm depression screening assessmentNoPeaceHealth Southwest [facility] Center [employer] [address] [address] [place] Work Phone: Fall risk assessmentb) One or more falls in the last yearPeaceHealth Southwest Medical Center [employer] [address] [place] Work Phone: Tobacco use status CPHSb) NoMAstria Toppenish Hospital [facility] [place] [address] [place] Work Phone: Office Visit (Cardiology)on 37-90-2315Qwrakg-up visit Diagnoses/Problems Assessed Persistent atrial fibrillation (427.31) [...] try to retrieve retrieve his record from [place] Surgical History Problems History of Back [...] Recorded: 06Jun2022 09:22AM Heart Rate80, L Radial Wvicfksr694, LUE, Sitting Rncekbzkk42, LUE, Sitting Height6 ft 1 in Gvscrc684 lb BMI Eowsmvafeu47.84 kg/m2 BSA Calculated2.2 Tobacco Useb) No Falls [...] (more content not included)...NormalUH Touchworks Tobacco Screening.on 17-74-4052Fluc risk assessmenta) No falls within the last year-[facility] [employer] 250 DO Work Phone: Tobacco use status CPHSb) NoMP-[facility] [employer] 250 DO Work Phone: Office Visit (Cardiology)on 70-62-1281Hkadnf-up visit Diagnoses/Problems Assessed Persistent atrial fibrillation (427.31) [...] with correct medication list Retrieve records from [place] Will come back tomorrow with medication [...] reports he was in the hospital in [place] in [place] after a stroke. Hedoes not know if [...] 4. I to retrieve his record from [place] 5. I advised the patient TO [...] (V15.82 (more content not included)...NormalUH TouchworksTobacco Screening.on 39-85-6677Fzqut depression screening assessmentNoMayo Clinic Health System Pollenizer DO Work Phone: Fall risk assessmentb) One or more falls in the last yearMayo Clinic Health System 250 DO Work Phone: Tobacco use status CPHSb) [facility] 250 DO Work Phone: CB AUTO DIFFon 94-72-6204FEBG #0.0 103/ulNormal 0.0-0.1The [facility] HospitalComment on above:Performed By: #### CBC ####[facility] [address] [address]DrPrem Pugh Basophils/100 WBC (Bld)0.5 %Normal0.2-2.0The [facility] HospitalComment on above: Performed By: #### CBC ####[facility] [address] [address]DrPrem FordO #0.4 103/ulNormal0.0-0.7The [facility] Vista HospitalComment on above:Performed By: #### CBC ####[facility] Radrbenn[address] [place], [place] [address]Dr.Yilan ChangEosinophils/100 WBC (Bld)4.7 %Normal0.9-7.0The [facility] Vista HospitalComment on above:Performed By: #### CBC ####[facility] Ilpljafq[address] [place], [place] [address]Dr.Yilan ChangErythrocyte distribution width (RBC) [Ratio]13.7 %Normal 11.0-15.0The [facility] Vista HospitalComment on above:Performed By: #### CBC ####[facility] Ardmzvzxfd[address] [place], [place] [address]Dr. Yilan ChangHematocrit (Bld) [Volume fraction]40.5 %Critically low42.0-54.0The [facility] HospitalComment on above:Performed By: #### CBC ####[facility] Ngctqkzfks[address] [place], [place] [address]Dr.Shondalan ChangHemoglobin (Bld) [Mass/Vol]13.5 g/dLCritically low14.0-18.0The [facility] HospitalComment on above:Performed By: #### CBC ####[facility] Pxlsehlsrw[address] [place], [place] [address]Dr.Yilan ChangIG #0.03 10e3/ulNormal0.00-0.03The [facility] Vista HospitalComment on above:Performed By: #### CBC ####[facility] Padfgggcyj[address] [place], [place] [address]Dr.Yilan ChangIG %0.4 %Normal 0.0-0.5The [facility] HospitalComment on above:Performed By: #### CBC ####[facility] Iwvljvuagn[address] [place], [place] [address]Dr.Yilan ChangLYMPH #2.0 103/ulNormal1.2-3.8The [facility] HospitalComment on above:Performed By: #### CBC ####[facility] [address] [address]Dr.Sea PughLymphocytes/100 WBC (Bld)25.4 %Mzmson26.5-60.0The [facility] HospitalComment on above:Performed By: #### CBC ####[facility] Ftaplhrxt[address] [place], [place] [address]Dr.Sea PughMANUAL DIFF REQ NONormalThe [facility]on HospitalComment on above:Performed By: #### CBC ####[facility] Gyyokccavj[address] [place], [place] [address]Dr. Sea PughH (RBC) [Entitic mass]29.6 gsKenmfs52.9-34.0The [facility] Comment on above:Performed By: #### CBC ####[facility] K[address]lqeo[address] [place], [place] [address]Dr.Sea PughHC (RBC) [Mass/Vol]33.3 g/dL Pythpo73.9-35.2The [facility] HospitalComment on above:Performed By: #### CBC ####[facility] Jtmamgcwdi[address] [place], [place] [address]Dr. Sea PughV (RBC) [Entitic vol]88.8 aALvccwz79.0-94.0The [facility] Comment on above:Performed By: #### CBC ####[facility] Izmvmrgzfi[address] [place], [place] [address]Dr.Sea PughMONO #0.8 103/ulNormal0.3-0.8 The [facility] HospitalComment on above:Performed By: #### CBC ####[facility] Phskklosxe[address] [place], [place] [address]Dr.Sea Pugh Monocytes/100 WBC (Bld)10.4 %Normal1.7-12.0The [facility] HospitalComment on above:Performed By: #### CBC ####[facility] Ldjeyaievv[address] [place], [place] [address]Dr.Sea PughNEUT #4.6 103/ulNormal1.4-6.5The [facility] HospitalComment on above:Performed By: #### CBC ####[facility] [address]oz[address] [address]Dr.Sea PughNeutrophils/100 WBC (Bld)58.6 %Lcnypm46.0-75.0The [facility] HospitalComment on above:Performed By: #### CBC ####[facility] [address] [address]Dr.Sea PughPlatelet mean volume (Bld) [Entitic vol]9.8 fLNormal9.5-13.5 The [facility] HospitalComment on above:Performed By: #### CBC ####[facility] [address] [address]DrPrem PughPLT243 103/drWvulvx282-258Kkd [facility] HospitalComment on above:Performed By: #### CBC ####[facility] [address] [address]DrMook PughRBC4.56 106/ulCritically low4.70-6.10The [facility] HospitalComment on above:Performed By: #### CBC ####[facility] [address] [address]DrPrem PughWBC7.8 103/ulNormal4.0-11.0The [facility] HospitalComment on above:Performed By: #### CBC ####[facility] [address] [address]DrPrem CampuzanoC AUTO DIFFon 36-73-1700VIJI #0.1 103/ulNormal0.0-0.1The [facility] HospitalComment on above: Performed By: #### HSTROPN, CMP, CRP #### [facility] [address] [address] [address] Sea PughBasophils/100 WBC (Bld)0.7 %Normal0.2-2.0The [facility] Comment on above:Performed By: #### HSTROPN, CMP, CRP #### [facility] [address] [address] [address] Sea Torre #0.3 103/ulNormal0.0-0.7The [facility] HospitalComment on above: Performed By: #### HSTROPN, CMP, CRP #### [facility] [address] [place] [address] Dr. Sea Fordosinophils/100 WBC (Bld)4.9 %Normal0.9-7.0The [facility] Comment on above:Performed By: #### HSTROPN, CMP, CRP #### [facility] [address] [address] [address] Sea Fordrythrocyte distribution width (RBC) [Ratio]14.0 %Chbnsb04.0-15.0 The [facility] HospitalComment on above:Performed By: #### HSTROPN, CMP, CRP #### [facility] [address] [place] [address] Dr. Sea PughHematocrit (Bld) [Volume fraction]38.5 %Critically low42.0-54.0 The [facility] HospitalComment on above:Performed By: #### HSTROPN, CMP, CRP #### [facility] [address] [place] [address] Dr. Sea PughHemoglobin (Bld) [Mass/Vol]13.3 g/dLCritically low14.0-18.0The [facility] Medical Centerment on above:Performed By: #### HSTROPN, CMP, CRP #### [facility] [address] [place] [address] Dr. Sea Anguiano #0.02 10e3/ulNormal0.00-0.03The [facility] Medical Centerment on above:Performed By: #### HSTROPN, CMP, CRP #### [facility] [address] [place] [address] Dr. Sea Anguiano %0.3 %Normal0.0-0.5The [facility] Medical Centerment on above: Performed By: #### HSTROPN, CMP, CRP #### [facility] [address] [place] [address] Dr. Sea Galeano #1.5 103/ulNormal1.2-3.8The [facility] HospitalComment on above:Performed By: #### HSTROPN, CMP, CRP #### [facility] [address] [place] [address] Dr. Sea Novamphocytes/100 WBC (Bld)22.7 %Khlyhc27.5-60.0The [facility] HospitalComment on above:Performed By: #### HSTROPN, CMP, CRP #### [facility] [address] [place] [address] Dr. Sea SoniUAL DIFF REQNONormalThe [facility] HospitalComment on above: Performed By: #### HSTROPN, CMP, CRP #### [facility] [address] [place] [address] Dr. Sea Steele (RBC) [Entitic mass]29.4 qhHsszwn49.9-34.0The [facility] HospitalComment on above:Performed By: #### HSTROPN, CMP, CRP #### [facility] [address] [place] [address] Dr. Sea Steele (RBC) [Mass/Vol]34.5 g/jPSjxkhy46.9-35.2The [facility] HospitalComment on above:Performed By: #### HSTROPN, CMP, CRP #### [facility] [address] [place] [address] Dr. Sea Steele (RBC) [Entitic vol]85.0 oQVityhr73.0-94.0The [facility] HospitalComment on above:Performed By: #### HSTROPN, CMP, CRP #### [facility] [address] [place] [address] Dr. Sea Rain #0.7 103/ulNormal0.3-0.8The [facility] HospitalComment on above:Performed By: #### HSTROPN, CMP, CRP #### [facility] [address] [place] [address] Dr. Sea Bansalocytes/100 WBC (Bld)10.2 %Normal1.7-12.0The [facility] Comment on above:Performed By: #### HSTROPN, CMP, CRP #### [facility] [address] [address] [address] Sea Zapata #4.1 103/ulNormal1.4-6.5The [facility] HospitalComment on above:Performed By: #### HSTROPN, CMP, CRP #### [facility] [address] [address] [address] Sea Valentineutrophils/100 WBC (Bld)61.2 %Nlnxxx33.0-75.0The [facility] HospitalComment on above:Performed By: #### HSTROPN, CMP, CRP #### [facility] [address] [address] [address] Sea PughPlatelet mean volume (Bld) [Entitic vol]9.1 fLCritically low 9.5-13.5The [facility] HospitalComment on above:Performed By: #### HSTROPN, CMP, CRP #### [facility] [address] [place] [address] Dr. Sea PughPLT216 103/ohQcqpnk911-679Dly [facility] HospitalComment on above: Performed By: #### HSTROPN, CMP, CRP #### [facility] [address] [address] [address] Sea PughRBC4.53 106/ulCritically low4.70-6.10The [facility] HospitalComment on above:Performed By: #### HSTROPN, CMP, CRP #### [facility] [address] [place] [address] Dr. Sea PughWBC6.8 103/ulNormal4.0-11.0The [facility] HospitalComment on above: Performed By: #### HSTROPN, CMP, CRP #### [facility] [address] [place] [address] Dr. Sea FordCHOCARDIPeg M/2D COMPLETEon 17-17-6666UPBRCFTGNS M/2D COMPLETE Patient: SHAHRZAD EDGAR. Exam Date: 04/21/2022 : 1945 Gender:M Ordering : SHAIKH Marya CAMPOS . Admission #: [id number] Family : Order #: [id number] CLICK HERE TO VIEW EXAM ECHOCARDIOGRAM REPORT PROCEDURE: CARDIO PULMONARY ECHOCARDIO M/2D COMP INDICATIONS: Elevated troponin, TIA, HX:UT COMPARISON: None. DESCRIPTION: COMPLETE ECHOCARDIOGRAM Real-time transthoracic [...] by: Florinda Chan M.D. on 04/21/2022 at 14:57[facility] BRAIN WO CONon 91-80-8471ECI BRAIN WO CONEXAMINATION: MRI BRAIN WO CON, [...] authenticated by: RAMESH DE SANTIAGO Date: 2022-04-21 14:41City HospitalPOINT OF CARE GLUCOSEon 06-60-8915Snieyol [Mass/Vol]180 mg/dL Critically hiwt14-113Low [facility] HospitalComment on above:Performed By: #### POCGLUC ####[facility] [address] [place], [place] [address]GzDr. Sea PughPROF CHEM 8 (BAS METB)on 96-09-9182Vczlf gap [Moles/Vol]13.5 mmol/LNormalKettering Health Behavioral Medical CenterComment on above:Performed By: #### DDIM #### [facility] [address] [address] [address] Sea PughCalcium [Mass/Vol]8.7 mg/dLNormal8.5-10.1[facility] Comment on above:Performed By: #### DDIM #### [facility] [address] [address] [address] Sea PughChloride [Moles/Vol]100 mmol/XHnilwz92-276PyjKettering Health Behavioral Medical Center Comment on above:Performed By: #### DDIM #### [facility] [address] [address] [address] Sea PughCO2 [Moles/Vol]27.2 mmol/XDywtpp44.0-32.0[facility] Comment on above:Performed By: #### DDIM #### [facility] [address] [address] [address] Sea PughCreatinine [Mass/Vol]1.27 mg/dLNormal0.70-1.30The [facility] HospitalComment on above:Performed By: #### DDIM #### [facility] [address] [address] [address] Osei ChangEGFR-AF NEW ZEALANDER>60Normal>=60The [facility] HospitalComment on above:Performed By: #### DDIM #### [facility] [address] [address] [address] Sea FordGFR-NON AF DXRZDLXG97 mL/min/1.67j4Dnusdoqygb low>=60The [facility] HospitalComment on above:Performed By: #### DDIM #### [facility] [address] [address] [address] Sea PughGlucose [Mass/Vol]134 mg/dLCritically lfyw04-052Dwh [facility] HospitalComment on above:Performed By: #### DDIM #### [facility] [address] [place] [address] Dr. Sea PughPotassium [Moles/Vol]3.7 mmol/LNormal3.5-5.1[facility] Comment on above:Performed By: #### DDIM #### [facility] [address] [place] [address] Dr. Sea Gonzalesdium [Moles/Vol]137 mmol/ROigtss018-964Hyh [facility] Comment on above:Performed By: #### DDIM #### [facility] [address] [place] [address] Dr. Sea PughUrea nitrogen [Mass/Vol]14.0 mg/dLNormal7.0-18.0The [facility] HospitalComment on above:Performed By: #### DDIM #### [facility] [address] [place] [address] Dr. Sea Starr nitrogen/Creatinine [Mass ratio]11.0 mg/mgNormalThe [facility] HospitalComment on above:Performed By: #### DDIM #### [facility] [address] [place] [address] Dr. Sea Boles SRINIVASAN 3-6on 52-37-7212MC [Catalytic activity/Vol]282 U/L Paejeu22-893Rdz [facility] HospitalComment on above:Performed By: #### HSTROPN, CMP, CRP #### [facility] [address] [place] [address] Dr. Sea Dailey.MB [Mass/Vol]4.34 ng/mLCritically high<=3.60The [facility] HospitalComment on above:Performed By: #### HSTROPN, CMP, CRP #### [facility] [address] [address] [address] Sea PughHSTROP113.2 pg/mLCritically high4.0-76.1[facility] Comment on above:Result Comment: CUT-OFF POINTS HAVE BEEN ESTABLISHED BASED ON THE FOURTH UNIVERSAL DEFINITIONS OF MYOCARDIAL INFARCTION. THE UPPER REFERENCE LIMIT (URL) OF TROPONIN, DEFINED THE 99TH PERCENTILE OF cTnI DISTRIBUTION IN A REFERENCE POPULATION, HAS BEEN CONFIRMED THE DECISION THRESHOLD FOR UT DIAGNOSIS.Performed By: #### HSTROPN, CMP, CRP #### [facility] [address] [place] [address] Dr. Sea Rachel AUTO DIFFon 49-33-3573VMHO #0.0 103/ulNormal0.0-0.1The [facility] HospitalComment on above:Performed By: #### HSTROPN, CMP, CRP #### [facility] [address] [address] [address] Sea PughBasophils/100 WBC (Bld)0.5 %Normal0.2-2.0[facility] Comment on above:Performed By: #### HSTROPN, CMP, CRP #### [facility] [address] [address] [address] Sea Torre #0.1 103/ulNormal0.0-0.7The [facility] HospitalComment on above: Performed By: #### HSTROPN, CMP, CRP #### [facility] [address] [address] [address] Sea Fordosinophils/100 WBC (Bld)0.6 %Critically low0.9-7.0The [facility] HospitalComment on above:Performed By: #### HSTROPN, CMP, CRP #### [facility] [address] [place] [address] Dr. Sea Fordrythrocyte distribution width (RBC) [Ratio]13.6 %Cteccm76.0-15.0 The [facility] HospitalComment on above:Performed By: #### HSTROPN, CMP, CRP #### [facility] [address] [address] [address] Sea Plummeratoduket (Bld) [Volume fraction]37.2 %Critically low42.0-54.0 The [facility] HospitalComment on above:Performed By: #### HSTROPN, CMP, CRP #### [facility] [address] [address] [address] Sea PughHemoglobin (Bld) [Mass/Vol]13.3 g/dLCritically low14.0-18.0The [facility] Centerment on above:Performed By: #### HSTROPN, CMP, CRP #### [facility] [address] [place] [address] Dr. Sea Anguiano #0.04 10e3/ulCritically high0.00-0.03The [facility] Comment on above:Performed By: #### HSTROPN, CMP, CRP #### [facility] [address] [address] [address] Sea Anguiano %0.5 %Normal0.0-0.5The [facility] HospitalComment on above: Performed By: #### HSTROPN, CMP, CRP #### [facility] [address] [place] [address] Dr. Sea Galeano #1.2 103/ulNormal1.2-3.8The [facility] HospitalComment on above:Performed By: #### HSTROPN, CMP, CRP #### [facility] [address] [place] [address] Dr. Sea Novamphocytes/100 WBC (Bld)14.7 %Critically low20.5-60.0The [facility] Centerment on above:Performed By: #### HSTROPN, CMP, CRP #### [facility] [address] [address] [address] Sea SoniUAL DIFF REQNONormalThe López HospitalComment on above: Performed By: #### HSTROPN, CMP, CRP #### [facility] [address] [address] [address] Sea Steele (RBC) [Entitic mass]29.6 pgSqskpn33.9-34.0The [facility] HospitalComment on above:Performed By: #### HSTROPN, CMP, CRP #### [facility] [address] [place] [address] Dr. Sea Steele (RBC) [Mass/Vol]35.8 g/dLCritically high29.9-35.2The [facility] HospitalComment on above:Performed By: #### HSTROPN, CMP, CRP #### [facility] [address] [place] [address] Dr. eSa Steele (RBC) [Entitic vol]82.9 cOOqilbl69.0-94.0The [facility] HospitalComment on above:Performed By: #### HSTROPN, CMP, CRP #### [facility] [address] [place] [address] Dr. Sea Rain #0.7 103/ulNormal0.3-0.8The [facility] HospitalComment on above:Performed By: #### HSTROPN, CMP, CRP #### [facility] [address] [place] [address] Dr. Sea Bansalocytes/100 WBC (Bld)9.4 %Normal1.7-12.0The [facility] Comment on above:Performed By: #### HSTROPN, CMP, CRP #### [facility] [address] [place] [address] Dr. Sea Zapata #5.9 103/ulNormal1.4-6.5The [facility] HospitalComment on above:Performed By: #### HSTROPN, CMP, CRP #### [facility] [address] [place] [address] Dr. Sea Valentineutrophils/100 WBC (Bld)74.3 %Eourrl95.0-75.0The [facility] HospitalComment on above:Performed By: #### HSTROPN, CMP, CRP #### [facility] [address] [place] [address] Dr. Sea PughPlatelet mean volume (Bld) [Entitic vol]9.4 fLCritically low 9.5-13.5The [facility] HospitalComment on above:Performed By: #### HSTROPN, CMP, CRP #### [facility] [address] [place] [address] Dr. Sea PughPLT215 103/fjKwmgit236-157Vig [facility] HospitalComment on above: Performed By: #### HSTROPTiffany CMP, CRP #### [facility] [address] [place] [address] Dr. Sea PughRBC4.49 106/ulCritically low4.70-6.10The [facility] HospitalComment on above:Performed By: #### HSTROPTiffany CMP, CRP #### [facility] [address] [place] [address] Dr. Sea PughWBC7.9 103/ulNormal4.0-11.0The [facility] HospitalComment on above: Performed By: #### HSTROPTiffany CMP, CRP #### [facility] [address] [place] [address] Dr. Sea PughCovid-19 PCR ([facility])on 69-78-4094THZT-CoV-2 (COVID-19) RNA [place]+probe Ql (Unsp spec)Not detectedNormalNOT DETECTEDThe [facility] Comment on above:Result Comment: When diagnostic [...] for this test is supported by the [employer] of Health and Human Service's declaration that [...] used).Performed By: #### DDIM #### [facility] [address] [address] [address] Sea PughPOINT OF CARE GLUCOSEon 71-98-5775Hrkucnm [Mass/Vol]134 mg/dL Critically htul94-398Cde [facility] HospitalComment on above:Performed By: #### DDIM #### [facility] [address] [place] [address] Dr. Sea PughPROF CHEM 8 (BAS METB)on 76-65-0411Atdsf gap [Moles/Vol]15.3 mmol/LNormalThe [facility] HospitalComment on above:Performed By: #### BMP ####[facility] [address] [place], [place] [address]Dr. Sea ChangCalcium [Mass/Vol]8.9 mg/dLNormal8.5-10.1The [facility] HospitalComment on above:Performed By: #### BMP ####[facility] [address] [place], [place] [address]Dr.Yilan ChangChloride [Moles/Vol]101 mmol/LNormal 98-107The [facility] HospitalComment on above:Performed By: #### BMP ####[facility] [address] [place], [place] [address]Dr.Shondalan ChangCO2 [Moles/Vol]25.5 mmol/VGahdkd43.0-32.0The [facility] HospitalComment on above: Performed By: #### BMP ####[facility] [address] [place], [place] [address]Dr.Yilan ChangCreatinine [Mass/Vol]1.09 mg/dLNormal 0.70-1.30The [facility] HospitalComment on above:Performed By: #### BMP ####[facility] [address] [address]Dr. Yilan ChangEGFR-AF NEW ZEALANDER>60Normal>=60The [facility] HospitalComment on above: Performed By: #### BMP ####[facility] Mn[address] [place], [place] [address]Dr.Yilan ChangEGFR-NON AF NEW ZEALANDER>60Normal>=60The [facility] HospitalComment on above:Performed By: #### BMP ####[facility] [address] [place], [place] [address]Dr.Shondalan ChangGlucose [Mass/Vol]150 mg/dLCritically qqoj02-939Bmg [facility] HospitalComment on above: Performed By: #### BMP ####[facility] [address] [place], [place] [address]Dr.Sea ChangPotassium [Moles/Vol]3.8 mmol/LNormal 3.5-5.1The [facility] HospitalComment on above:Performed By: #### BMP ####[facility] [address] [place], [place] [address]Dr.Sea Pugh Sodium [Moles/Vol]138 mmol/QMpjhba455-042Djo [facility] HospitalComment on above: Performed By: #### BMP ####[facility] [address] [place], [place] [address]Dr.Yilan ChangUrea nitrogen [Mass/Vol]11.0 mg/dLNormal 7.0-18.0The [facility] HospitalComment on above:Performed By: #### BMP ####[facility] S[address] [place], [place] [address]Dr. Shondalan ChangUrea nitrogen/Creatinine [Mass ratio]10.1 mg/mgNormalThe [facility] HospitalComment on above:Performed By: #### BMP ####[facility] [address] [place], [place] [address]Dr.Sea ChangTROPONIN, HIGH SENSITIVITYon 51-34-6727FIBNIE094.3 pg/mLCritically high4.0-76.1The [facility] HospitalComment on above:Result Comment: CUT-OFF POINTS HAVE BEEN ESTABLISHED BASED ON THE FOURTH UNIVERSAL DEFINITIONS OF MYOCARDIAL INFARCTION. THE UPPER REFERENCE LIMIT (URL) OF TROPONIN, DEFINED THE 99TH PERCENTILE OF cTnI DISTRIBUTION IN A REFERENCE POPULATION, HAS BEEN CONFIRMED THE DECISION THRESHOLD FOR UT DIAGNOSIS.Performed By: #### DDIM #### [facility] [address] [address] [address] Sea HollinsTROP141.1 pg/mLCritically high4.0-76.1The [facility] Comment on above:Result Comment: CUT-OFF POINTS HAVE BEEN ESTABLISHED BASED ON THE FOURTH UNIVERSAL DEFINITIONS OF MYOCARDIAL INFARCTION. THE UPPER REFERENCE LIMIT (URL) OF TROPONIN, DEFINED THE 99TH PERCENTILE OF cTnI DISTRIBUTION IN A REFERENCE POPULATION, HAS BEEN CONFIRMED THE DECISION THRESHOLD FOR UT DIAGNOSIS.Performed By: #### HSTROPN #### [facility] [address] [address] [address] Sea MATTSON ADMITon 05-47-2747MA [Catalytic activity/Vol]266 U/L Nmukan45-314Oyq [facility] HospitalComment on above:Performed By: #### SANJEEV HUNTER ####[facility] [address] [address]DrMook PughCK.MB [Mass/Vol]4.18 ng/mLCritically high<=3.60[facility] Comment on above:Performed By: #### DOUGIE HUNTERDM ####[facility] [address] [id number]. Sea PughUqngzXQAMKI38.5 pg/mLNormal4.0-76.1The [facility] Centerment on above:Result Comment: CUT-OFF POINTS HAVE BEEN ESTABLISHED BASED ON THE FOURTH UNIVERSAL DEFINITIONS OF MY OCARDIAL INFARCTION. THE UPPER REFERENCE LIMIT (URL) OF TROPONIN, DEFINED THE 99TH PERCENTILE OF cTnI DISTRIBUTION IN A REFERENCE POPULATION, HAS BEEN CONFIRMED THE DECISION THRESHOLD FOR UT DIAGNOSIS.Performed By: #### DALE, CMADM ####[facility] [address] [address]Dr. Sea NpdwbFWO537 ng/mL Critically uagr84-16Hmg [facility] Centerment on above:Performed By: #### DALE, CMADM ####[facility] [address] [address]Dr. Sea Rachel AUTO DIFFon 98-03-1737WVAO #0.0 103/ulNormal0.0-0.1The [facility] HospitalComment on above:Performed By: #### CBC #### [facility] [address] [address] [address] Sea PughBasophils/100 WBC (Bld)0.3 %Normal0.2-2.0The [facility] Comment on above:Performed By: #### CBC #### [facility] [address] [address] [address] Sea Torre #0.2 103/ulNormal0.0-0.7The [facility] HospitalComment on above: Performed By: #### CBC #### [facility] [address] [place] [address] Dr. Sea Fordosinophils/100 WBC (Bld)1.4 %Normal0.9-7.0The [facility] Comment on above:Performed By: #### CBC #### [facility] [address] [address] [address] Sea Fordrythrocyte distribution width (RBC) [Ratio]13.5 %Kobjym89.0-15.0 The [facility] HospitalComment on above:Performed By: #### CBC #### [facility] [address] [address] [address] Sea PughHematocrit (Bld) [Volume fraction]37.5 %Critically low42.0-54.0 The [facility] HospitalComment on above:Performed By: #### CBC #### [facility] [address] [address] [address] Sea PughHemoglobin (Bld) [Mass/Vol]13.4 g/dLCritically low14.0-18.0The [facility] HospitalComment on above:Performed By: #### CBC #### [facility] [address] [place] [address] Dr. Sea Anguiano #0.08 10e3/ulCritically high0.00-0.03The [facility] Comment on above:Performed By: #### CBC #### [facility] [address] [address] [address] Sea Anguiano %0.7 %Critically high0.0-0.5ThAkron Children's HospitalComment on above:Performed By: #### CBC #### [facility] [address] [address] [address] Sea Galeano #1.1 103/ulCritically low1.2-3.8The [facility] Comment on above:Performed By: #### CBC #### [facility] [address] [place] [address] Dr. Sea Hoffmanhocytes/100 WBC (Bld)8.7 %Critically low20.5-60.0[facility] CenterComment on above:Performed By: #### CBC #### [facility] [address] [place] [address] Dr. Sea Merino DIFF REQNONormalThe [facility] HospitalComment on above: Performed By: #### CBC #### [facility] [address] [place] [address] Dr. Sea Figueroa (RBC) [Entitic mass]30.0 saWesxff05.9-34.0[facility] CenterComment on above:Performed By: #### CBC #### [facility] [address] [place] [address] Dr. Sea Steele (RBC) [Mass/Vol]35.7 g/dLCritically high29.9-35.2[facility] CenterComment on above:Performed By: #### CBC #### [facility] [address] [place] [address] Dr. Sea Izaguirre (RBC) [Entitic vol]84.1 uBCkdpjr47.0-94.0[facility] CenterComment on above:Performed By: #### CBC #### [facility] [address] [place] [address] Dr. Sea Rain #0.8 103/ulNormal0.3-0.8The [facility] HospitalComment on above:Performed By: #### CBC #### [facility] [address] [address] [address] Sea Bansalocytes/100 WBC (Bld)6.8 %Normal1.7-12.0[facility] Comment on above:Performed By: #### CBC #### [facility] [address] [place] [address] Dr. Sea Zapata #10.0 103/ulCritically high1.4-6.5The [facility] Comment on above:Performed By: #### CBC #### [facility] [address] [place] [address] Dr. Sea Valentineutrophils/100 WBC (Bld)82.1 %Critically high43.0-75.0The [facility] HospitalComment on above:Performed By: #### CBC #### [facility] [address] [place] [address] Dr. Sea Santacruzlet mean volume (Bld) [Entitic vol]9.2 fLCritically low 9.5-13.5The [facility] HospitalComment on above:Performed By: #### CBC #### [facility] [address] [place] [address] Dr. Sea PughPLT203 103/djNkrjbc845-697Hfv [facility] HospitalComment on above: Performed By: #### CBC #### [facility] [address] [place] [address] Dr. Sea PughRBC4.46 106/ulCritically low4.70-6.10The [facility] HospitalComment on above:Performed By: #### CBC #### [facility] [address] [place] [address] Dr. Sea PughWBC12.1 103/ulCritically high4.0-11.0The [facility] HospitalComment on above:Performed By: #### CBC #### [facility] [address] [place] [address] Dr. Sea PughCT CSPINE WO CONon 67-23-9539BQ CSPINE WO CONEXAMINATION: CT CSPINE WO CON [...] Electronically authenticated by: REINA GOMEZ Date: 2022-04-19 20:22[facility] STROKE HEAD WOon [id number] STROKE HEAD WONONCONTRAST CT SCAN OF THE [...] Electronically authenticated by: OBI MIDDLETON Date: 2022-04-19 20:08[facility] HospitalCT[facility] CHEST WO W CONon [id number] CHEST WO W CON EXAMINATION:CTA CHEST WO [...] Electronically authenticated by: RIC MOON Date: 2022-04-19 21:52NoK[facility]tering Health TroyD-DIMERon 55-15-7859X-DIMER2.01 mg/L FEUCritically high<=0.59 The [facility] HospitalComment on above:Performed By: #### DDIM #### [facility] [address] [address] [address] Sea Castro-DIMER COMMENTSSEE BELOWCity HospitalComment on above:Result Comment: Increases in D-Dimer concentration [...] Performed By: #### DDIM #### [facility] [address] [address] [address] Sea PughPROF CHEM 8 (BAS METB)on 44-23-0881Xywtz gap [Moles/Vol]19.2 mmol/LNormalThe [facility] HospitalComment on above:Performed By: #### DALE, CMADM ####[facility] [address] [place], [place] [address]Dr. Yilan ChangCalcium [Mass/Vol]9.1 mg/dLNormal8.5-10.1The [facility] HospitalComment on above:Performed By: #### DALE, CMADM ####[facility] [address] [place], [place] [address]Dr. Yilan ChangChloride [Moles/Vol]98 mmol/L Hnqejw23-419Zcn [facility] HospitalComment on above:Performed By: #### DALE, CMADM ####[facility] Z[address] [place], [place] [address]Dr. Yilan ChangCO2 [Moles/Vol]21.4 mmol/FBoqgea45.0-32.0The [facility] HospitalComment on above:Performed By: #### DALE, CMADM ####[facility] [address] [place], [place] [address]Dr. Yilan ChangCreatinine [Mass/Vol]1.45 mg/dLCritically high0.70-1.30The [facility] HospitalComtrinity health [place] on above:Performed By: #### DALE, CMADM ####[facility] [address] [place], [place] [address]Dr. Yilan ChangEGFR-AF ARSEBSJV98 mL/min/1.78z8Blfqqhzqxs low>=60The [facility] on above:Performed By: #### DALE, CMADM ####[facility] [address] [place], [place] [address]Dr. Yilan ChangEGFR- NON AF JWXOTRRP33 mL/min/1.99m7Qsnbqjkkzy low>=60The [facility] on above:Performed By: #### DALE, CMADM ####[facility] [address] [place], [place] [address]Dr. Yilan ChangGlucose [Mass/Vol]221 mg/dL Critically yapu49-778Xsk [facility] HospitalComment on above:Performed By: #### BMP, CMADM ####[facility] [address] [place], [place] [address]Dh. Yilan ChangPotassium [Moles/Vol]3.6 mmol/LNormal3.5-5.1The [facility] HospitalComment on above:Performed By: #### BMP, CMADM ####[facility] [address] [place], [place] [address]Ap. Yilan ChangSodium [Moles/Vol]135 mmol/LCritically yvx344-671Dco [facility] HospitalComment on above: Performed By: #### BMP, CMADM ####[facility] [address] [place], [place] [address]Qc. Yilan ChangUrea nitrogen [Mass/Vol]12.0 mg/dL Normal7.0-18.0The [facility] HospitalComment on above:Performed By: #### BMP, CMADM ####[facility] [address] [place], [place] [address]Dr. Yilan ChangUrea nitrogen/Creatinine [Mass ratio]8.3 mg/mgNoKettering Health TroyComment on above:Performed By: #### BMP, CMADM ####[facility] [address] [place], [place] [address]Ey. Sea ChangXR CHEST 1 Von 49-72-9085WG CHEST 1 VEXAMINATION: XR CHEST 1 V HISTORY: Left arm weakness and tingling. 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 COMPARISON: 09/22/2021 portable chest TECHNIQUE: Portable chest FINDINGS: The lung parenchyma is free of consolidation or infiltrate. No pneumothorax or pleural effusion. The cardiac, mediastinal and hilar contours are normal. The visualized osseous structures exhibit no gross abnormality. IMPRESSION: No acute cardiopulmonary abnormality. Electronically authenticated by: REINA GOMEZ Date: 2022-04-19 20:12[facility] HospitalXR MODIFIED BARIUM SWALLOWon [id number] MODIFIED BARIUM SWALLOWEXAMINATION: XR MODIFIED BARIUM SWALLOW [...] Electronically authenticated by: REINA GO Date: 2021-12-20 10:49NormWhite HospitalIVETHDIAC SRINIVASAN 3-6on [id number] [Catalytic activity/Vol]63 U/L Nkldzz35-851Szz [facility] HospitalComment on above:Performed By: #### CMREP ####[facility] [address] [id number]. Sea Carroll [Mass/Vol]1.00 ng/mLNormal<=3.60The [facility] HospitalComment on above:Performed By: #### CMREP ####[facility] [address] [place], [place] [address]QbDr. Sea TohmasOP7.1 pg/mLNormal4.0-76.1The [facility] HospitalComment on above:Result Comment: CUT-OFF POINTS HAVE BEEN ESTABLISHED BASED ON THE FOURTH UNIVERSAL DEFINITIONS OF MYOCARDIAL INFARCTION. THE UPPER REFERENCE LIMIT (URL) OF TROPONIN, DEFINED THE 99TH PERCENTILE OF cTnI DISTRIBUTION IN A REFERENCE POPULATION, HAS BEEN CONFIRMED THE DECISION THRESHOLD FOR UT DIAGNOSIS.Performed By: #### CMREP ####[facility] [address] [id number]. Sea Boles SRINIVASAN ADMITon [id number] [Catalytic activity/Vol]66 U/XWxjrfd63-128AuzKettering Health Behavioral Medical Center Comment on above:Performed By: #### DDIM #### [facility] [address] [address] [address] Sea Carroll [Mass/Vol]0.93 ng/mLNormal<=3.60[facility] Comment on above:Performed By: #### DDIM #### [facility] [address] [address] [address] Sea ThomasOP8.2 pg/mLNormal4.0-76.1The [facility] on above:Result Comment: CUT-OFF POINTS HAVE BEEN ESTABLISHED BASED ON THE FOURTH UNIVERSAL DEFINITIONS OF MYOCARDIAL INFARCTION. THE UPPER REFERENCE LIMIT (URL) OF TROPONIN, DEFINED THE 99TH PERCENTILE OF cTnI DISTRIBUTION IN A REFERENCE POPULATION, HAS BEEN CONFIRMED THE DECISION THRESHOLD FOR UT DIAGNOSIS.Performed By: #### DDIM #### [facility] [address] [place] [address] Dr. Sea Hill62 ng/uABnfznf70-94Iqr [facility] HospitalComment on above: Performed By: #### DDIM #### [facility] [address] [place] [address] Dr. Sea Rachel AUTO DIFFon 05-32-2664CZYQ #0.0 103/ulNormal0.0-0.1The [facility] HospitalComment on above:Performed By: #### DDIM #### [facility] [address] [place] [address] Dr. Sea PughBasophils/100 WBC (Bld)0.3 %Normal0.2-2.0[facility] Comment on above:Performed By: #### DDIM #### [facility] [address] [place] [address] Dr. Sea Torre #0.5 103/ulNormal0.0-0.7The [facility] HospitalComment on above: Performed By: #### DDIM #### [facility] [address] [place] [address] Dr. Sae Fordosinophils/100 WBC (Bld)5.4 %Normal0.9-7.0[facility] Comment on above:Performed By: #### DDIM #### [facility] [address] [place] [address] Dr. Sea Fordrythrocyte distribution width (RBC) [Ratio]13.7 %Melmeu79.0-15.0 [facility] Medical CenterComment on above:Performed By: #### DDIM #### [facility] [address] [place] [address] Dr. Sea PughHematocrit (Bld) [Volume fraction]34.9 %Critically low42.0-54.0 The [facility] HospitalComment on above:Performed By: #### DDIM #### [facility] [address] [address] [address] Sea PughHemoglobin (Bld) [Mass/Vol]12.2 g/dLCritically low14.0-18.0The [facility] HospitalComment on above:Performed By: #### DDIM #### [facility] [address] [address] [address] Sea Anguiano #0.07 10e3/ulCritically high0.00-0.03The [facility] Comment on above:Performed By: #### DDIM #### [facility] [address] [address] [address] Sea Anguiano %0.7 %Critically high0.0-0.5The [facility] HospitalComment on above:Performed By: #### DDIM #### [facility] [address] [place] [address] Dr. Sea Galeano #1.3 103/ulNormal1.2-3.8The [facility] HospitalComment on above:Performed By: #### DDIM #### [facility] [address] [place] [address] Dr. Sea Hoffmanhocytes/100 WBC (Bld)13.5 %Critically low20.5-60.0The [facility] HospitalComment on above:Performed By: #### DDIM #### [facility] [address] [address] [address] Sea SoniUAL DIFF REQNONormalThe [facility] HospitalComment on above: Performed By: #### DDIM #### [facility] [address] [place] [address] Dr. Sea iFgueroa (RBC) [Entitic mass]30.5 wxAfkreu88.9-34.0The [facility] HospitalComment on above:Performed By: #### DDIM #### [facility] [address] [place] [address] Dr. Sea Steele (RBC) [Mass/Vol]35.0 g/rDVjvubz93.9-35.2The [facility] HospitalComment on above:Performed By: #### DDIM #### [facility] [address] [place] [address] Dr. Sea Izaguirre (RBC) [Entitic vol]87.3 qPLxsoij07.0-94.0The [facility] HospitalComment on above:Performed By: #### DDIM #### [facility] [address] [place] [address] Dr. Sea Rain #1.3 103/ulCritically high0.3-0.8The [facility] Comment on above:Performed By: #### DDIM #### [facility] [address] [place] [address] Dr. Sea Bansalocytes/100 WBC (Bld)12.9 %Critically high1.7-12.0The [facility] HospitalComment on above:Performed By: #### DDIM #### [facility] [address] [place] [address] Dr. Sea Zapata #6.7 103/ulCritically high1.4-6.5The [facility] Comment on above:Performed By: #### DDIM #### [facility] [address] [place] [address] Dr. Sea Valentineutrophils/100 WBC (Bld)67.2 %Xswada50.0-75.0The [facility] HospitalComment on above:Performed By: #### DDIM #### [facility] [address] [place] [address] Dr. Sea Santacruzlet mean volume (Bld) [Entitic vol]9.7 fLNormal9.5-13.5The [facility] HospitalComment on above:Performed By: #### DDIM #### [facility] [address] [place] [address] Dr. Sea PughPLT226 103/mvPgmdul098-685Lov [facility] HospitalComment on above: Performed By: #### DDIM #### [facility] [address] [place] [address] Dr. Sea PughRBC4.00 106/ulCritically low4.70-6.10The [facility] Centerment on above:Performed By: #### DDIM #### [facility] [address] [place], [place] [address] Dr. Sea PughWBC10.0 103/ulNormal4.0-11.0The [facility] HospitalComment on above:Performed By: #### DDIM #### [facility] [id number] Sea Schultz CHEST WO W CONon [id number] CHEST WO W CONEXAMINATION: CTA CHEST WO [...] Electronically authenticated by: OSITO CUELLO Date: 2021-12-06 01:29NormalThe [facility] HospitalD-DIMERon 50-18-5551V-DIMER1.11 mg/L FEUCritically high<=0.59 The [facility] HospitalComment on above:Performed By: #### DDIM #### [facility] [address] [place] [address] Dr. Sea PughD-DIMER COMMENTSSEE St. Mary's Medical CenterComment on above:Result Comment: Increases in D-Dimer concentration [...] Performed By: #### DDIM #### [facility] [address] [place] [address] Dr. Sea PughPROF CHEM 8 (BAS METB)on 90-67-7443Rdsie gap [Moles/Vol]9.5 mmol/LNormalKettering Health Behavioral Medical CenterComment on above:Performed By: #### HSTROPN, CMP, CRP #### [facility] [address] [place] [address] Dr. Sea PughCalcium [Mass/Vol]8.6 mg/dLNormal8.5-10.1The [facility] Comment on above:Performed By: #### HSTROPN, CMP, CRP #### [facility] [address] [place] [address] Dr. Sea PughChloride [Moles/Vol]100 mmol/NOpigeb31-940Fod [facility] Comment on above:Performed By: #### HSTROPN, CMP, CRP #### [facility] [address] [place] [address] Dr. Sea PughCO2 [Moles/Vol]25.8 mmol/PGfkdkn23.0-32.0The [facility] Comment on above:Performed By: #### HSTROPN, CMP, CRP #### [facility] [address] [place] [address] Dr. Sea PughCreatinine [Mass/Vol]1.12 mg/dLNormal0.70-1.30The [facility] on above:Performed By: #### HSTROPN, CMP, CRP #### [facility] [address] [place] [address] Dr. Sea FordGFR-AF NEW ZEALANDER>60Normal>=60The [facility] HospitalComment on above:Performed By: #### HSTROPN, CMP, CRP #### [facility] [address] [place] [address] Dr. Sea FordGFR-NON AF NEW ZEALANDER>60Normal>=60The [facility] HospitalComment on above:Performed By: #### HSTROPN, CMP, CRP #### [facility] [address] [place] [address] Dr. Sea PughGlucose [Mass/Vol]201 mg/dLCritically znjr71-384Ial [facility] HospitalComtr[facility] [place] on above:Performed By: #### HSTROPN, CMP, CRP #### [facility] [address] [place] [address] Dr. Sea PughPotassium [Moles/Vol]3.3 mmol/LCritically low3.5-5.1The [facility] on above:Performed By: #### HSTROPN, CMP, CRP #### [facility] [address] [place] [address] Dr. Sea PughSodium [Moles/Vol]132 mmol/LCritically qah064-855Kyf [facility] HospitalComtr[facility] [place] on above:Performed By: #### HSTROPN, CMP, CRP #### [facility] [address] [place] [address] Dr. Sea PughUrea nitrogen [Mass/Vol]16.0 mg/dLNormal7.0-18.0The [facility] HospitalComtr[facility] health [place] on above:Performed By: #### HSTROPN, CMP, CRP #### [facility] [address] [place] [address] Dr. Sea PughUrea nitrogen/Creatinine [Mass ratio]14.3 mg/mgNormalThe [facility] HospitalComment on above:Performed By: #### HSTROPN, CMP, CRP #### [facility] [address] [address] [address] Sea Nash Metabolic Panelon [id number] gap [Moles/Vol]12 mmol/L9 - 17 mmol/LBON SECFioCalcium [Mass/Vol]8.3 mg/dLLow8.6 - 10.4 mg/dLBON SECFioChloride [Moles/Vol]100 mmol/L98 - 107 mmol/LBON SECVoices [facility] MEDICAL CENTERCO2 [Moles/Vol]21 mmol/L20 - 31 mmol/LBON SECFioCreatinine [Mass/Vol]0.69 mg/dLLow0.7 - 1.2 mg/dLBON BANNER CASA GRANDE MEDICAL CENTERFio GFR >6060 - PINF mL/minBON B[facility] CAS[facility] GRANDE MEDICAL CENTERFioGFR Non->6060 - PINF mL/minBON B[facility] CAS[facility] GRANDE MEDICAL CENTERFioGFR/1.73 sq M.predicted MDRD (S/P/Bld) [Vol rate/Area][facility] HOSPITALComment on above:Average GFR for 70 or more years old: 75 mL/min/1.73sq m Chronic Kidney Disease: <60 mL/min/1.73sq m Kidney failure: <15 mL/min/1.73sq m eGFR calculated using average adult body mass. Additional eGFR calculator available at: http://www.V[employer] (V3D)/multiple_crcl_2012.htm Glucose [Mass/Vol]138 mg/xIRqkt39 - 99 mg/dLBON BANNER CASA GRANDE MEDICAL CENTERFio Interpretation and review of laboratory resultsAbnormalBON [facility] Potassium [Moles/Vol]4.0 mmol/L3.7 - 5.3 mmol/LBON SECFioSodium [Moles/Vol]133 mmol/UJar222 - 144 mmol/LBON [facility]in[facility] HealthUrea nitrogen (BldV) [Mass/Vol]12 mg/dL8 - 23 mg/dLBON [facility]CTSA[facility]ata HealthBON BANNER CASA GRANDE MEDICAL CENTERVoices [facility] CAMPUS MEDICAL CENTERBasic Metabolic Profon 12-04-2021(cont.)[facility]tering Health SpringfieldComment on above:Result Comment: Average GFR for 70 or more years old: 75 mL/min/1.73sq m Chronic Kidney Disease: <60 mL/min/1.73sq m Kidney failure: <15 mL/min/1.73sq m eGFR calculated using average adult body mass. Additional eGFR calculator available at: http://www.Jobaline.M[employer]/multiple_crcl_2012.htmPerformed By: #### DALE MALDONADO, CDP #### [facility] [address] [place] [address] [employer] Trimmer: Afshin Mansfield MDAnion gap [Moles/Vol]12 mmol/LNormal9-17Grant HospitalComment on above:Performed By: #### DALE MALDONADO, CDP #### [facility] [address] [place] [address] [employer]: Afshin Mansfield MDCalcium [Mass/Vol]8.3 mg/dLLow8.6-10.4Grant HospitalComment on above:Performed By: #### DALE MALDONADO, CDP #### [facility] [address] [place] [address]28 [employer]: Afshin Mansfield MDChloride [Moles/Vol]100 mmol/BQknngc11-090XejhrGrant HospitalComment on above:Performed By: #### DALE MALDONADO, CDP #### [facility] [address] [place] [address]255 [employer] Trimmer: Afshin Mansfield MDCO2 [Moles/Vol]21 mmol/TZginzv29-07NfdplGrant HospitalComment on above:Performed By: #### DALE MALDONADO, CDP #### [facility] [address] [place] [address]348 [employer]utter [employer] Trimmer: Afshin Mansfield MDCreatinine [Mass/Vol]0.69 mg/dLLow0.70-1.20Grant HospitalComment on above:Performed By: #### DALE MALDONADO, CDP #### [facility] [address] [place] [address] Screen Cutter [employer] Trimmer: Afshin Mansfield MDGFR, Amer>60Normal>60MerGlenn Medical CenterComment on above:Performed By: #### DALE MALDONADO, CDP #### [facility] [address] [place] [address]165 [employer]immer: Afshin Mansfield MDGFR,non Amer>60Normal>60Grant HospitalComment on above:Performed By: #### DALE MALDONADO, CDP #### [facility] [address] [place] [address] [employer] Trimmer: Afshin Mansfield MDGlucose [Mass/Vol]138 mg/tNJuen02-33StrbrCommunity Memorial Hospital of San BuenaventuraComment on above:Performed By: #### DALE MALDONADO, CDP #### [facility] [address] [place] [address]05 Screen Cutter [employer] Trimmer: JOJO Westfallotassium [Moles/Vol]4.0 mmol/LNormal3.7-5.3 Grant HospitalComment on above:Performed By: #### DALE MALDONADO, CDP #### [facility] [address] [place] [address] 06084 [employer] Cutter [employer]immer: Afshin Mansfield MDSodium [Moles/Vol]133 mmol/ZFze039-431VjcoqGrant HospitalComment on above:Performed By: #### DALE MALDONADO, CDP #### [facility] [address] [place] [address] 59657 [employer] Cutter [employer] Trimmer: Afshin Mansfield MDUrea nitrogen [Mass/Vol]12 mg/dLNormal8-23Grant HospitalComment on above:Performed By: #### DALE MALDONADO, CDP #### [facility] [address] [place] [address] 43533 [employer] Cutter [employer] Trimmer: Afshin Madoff, MDCBC with Auto Differentialon [id number] Eos #0.64HighBON SECOURS KETTERING HEALTH HAMILTONAbsolute Immature Granulocyte0.06B[facility] HOSPITALY HEALTHAbsolute Lymph #1.09LowBON SECOURS [facility]OT MEMORIAL HOSPITALY HEALTHAbsolute Centre #1.29HighBON [facility]OURS [facility] HEALTHBasophils (Bld) [#/Vol]0.04 10*3/uLBON SECOURS [facility]ARK [facility]ITAL HEALTHBasophils/100 WBC (Bld)0 %0 - 2 %[facility] Eosinophils/100 WBC (Bld)6 %High1 - 4 %[facility] COMMUNITY HOSPITALHematocrit (Bld) [Volume fraction]36.1 %Low40.7 - 50.3 %[facility] COMMUNITY HOSPITALHemoglobin (Bld) [Mass/Vol]12.6 g/dLLow13 - 17 g/dLBON SECFAYETTE COUNTY MEMORIAL HOSPITALImmature granulocytes/100 WBC (Bld)1 %Qrxb9WAN KNOX COMMUNITY HOSPITALInterpretation and review of laboratory resultsAbnormalBON SECFAYETTE COUNTY MEMORIAL HOSPITALLymphocytes/100 WBC (Bld)9 %Low24 - 43 %BON [facility] MEDICAL CENTERH (RBC) [Entitic mass]30.1 pg25.2 - 33.5 pgBON SECMERCY HEALTH PERRYSBURG HOSPITALHC (RBC) [Mass/Vol]34.9 g/zEKsvw78.4 - 34.8 g/dLBON SECMERCY HEALTH PERRYSBURG HOSPITALV (RBC) [Entitic vol]86.2 fL82.6 - 102.9 fLBON SECFAYETTE COUNTY MEMORIAL HOSPITALMonocytes/100 WBC (Bld)11 %3 - 12 %[facility] HEALTH NRBC Automated0.00.0 per 100 WBCBON SECNORTHERN STATE HOSPITALY HEALTHPlatelet distribution width (Bld) [Ratio]13.6 %11.8 - 14.4 %[facility]OSPITALY HEALTHPlatelet mean volume (Bld) [Entitic vol]9.8 fL8.1 - 13.5 fLBON SECOURS WYANDOT MEMORIAL HOSPITALY HEALTHPlatelets (Bld) [#/Vol]212 10*3/uLBON [facility]OU[facility] HEALTHRBC (Bld) [#/Vol]4.19 10*6/uLLow 4.21 - 5.77 m/uLBON SECOURS [facility]ORIAL HOSPITALY HEALTHSegmented neutrophils/100 WBC (Bld)73 % High36 - 65 %BON KNOX COMMUNITY HOSPITALSegs Absolute8.59HighBON KNOX COMMUNITY HOSPITALWBC (Bld) [#/Vol]11.7 10*3/uLHighBON MARSHALL COUNTY HEALTHCARE CENTERCBC with Diffon [id number]. Basophil0.04 k/uLNormal0.00-0.20Grant HospitalComment on above:Performed By: #### DALE MALDONADO, CDP #### [facility] [address] [place] [address]13 [employer] Cutter [employer] Trimmer: Virgil Westfall.Imm.Granulocyte0.06 k/uLNormal0.00-0.30Grant HospitalComment on above:Performed By: #### DALE MALDONADO, CDP #### [facility] SystemLink[facility] [address] [place] [address]19 Screen Cutter [employer] Trimmer: Virgil Westfall.Neutrophil (Seg)8.59 k/uLHigh1.50-8.10Grant HospitalComment on above:Performed By: #### DALE MALDONADO, CDP #### [facility] [address] [place] [address] 49053 [employer] C[employer] Trimmer: Afshin Mansfield MDBasophils/100 WBC (Bld)0 %Normal0-2MercCommunity Memorial Hospital of San BuenaventuraComment on above:Performed By: #### DALE MALDONADO, CDP #### [facility] [address] [place] [address] 09345 Screen Cutter [employer] Trimmer: MINERVA Westfallosinophils (Bld) [#/Vol]0.64 10*3/uLHigh 0.00-0.44Grant HospitalComment on above:Performed By: #### DALE MALDONADO, CDP #### [facility] [address] [place] [address] 33534 [employer] C[employer] Trimmer: Fashin Madoff, MDEosinophils/100 WBC (Bld)6 %High1-4Grant HospitalComment on above:Performed By: #### DALE MALDONADO, CDP #### [facility] [address] [place] [address] 61947 Screen Cutter [employer] Trimmer: Afshin Mansfield MDErythrocyte distribution width (RBC) [Ratio]13.6 %Doqupa69.8-14.4Grant HospitalComment on above:Performed By: #### DALE MALDONADO, CDP #### [facility] [address] [place] [address] 80289 Screen Cutter [employer] Trimmer: Afshin Mansfield MDHematocrit (Bld) [Volume fraction]36.1 %Low 40.7-50.3Mtrihealthy Glenn Medical CenterComment on above:Performed By: #### DALE MALDONADO, CDP #### [facility] [address] [place] [address] 01580 [employer] C[employer] Trimmer: Afshin Mansfield MDHemoglobin (Bld) [Mass/Vol]12.6 g/dLLow13.0-17.0 Grant HospitalComment on above:Performed By: #### DALE MALDONADO, CDP #### [facility] [address] [place] [address] 81369 Screen Cutter [employer] Trimmer: Afshin Mansfield MDImmature granulocytes/100 WBC (Bld)1 %Ctul5MwezrGrant HospitalComment on above:Performed By: #### DALE MALDONADO, CDP #### [facility] [address] [place] [address] 58648 [employer]: Afshin Mansfield MDLymphocytes (Bld) [#/Vol]1.09 10*3/uLLow 1.10-3.70Grant HospitalComment on above:Performed By: #### DALE MALDONADO, CDP #### [facility] [address] [place] [address] 95107 Screen Cutter [employer] Trimmer: Afshin Mansfield MDLymphocytes/100 WBC (Bld)9 %Qwc84-90BbpslGrant HospitalComment on above:Performed By: #### DALE MALDONADO, CDP #### [facility] [address] [place] [address] 92769 Screen Cutter [employer] Trimmer: BRITTANY WestfallCH (RBC) [Entitic mass]30.1 ftCubpio76.2-33.5 Grant HospitalComment on above:Performed By: #### DALE MALDONADO, CDP #### [facility] [address] [place] [address] 29097 Screen Cutter [employer] Trimmer: BRITTANY WestfallCHC (RBC) [Mass/Vol]34.9 g/vGAwbw18.4-34.8Grant HospitalComment on above:Performed By: #### DALE MALDONADO, CDP #### [facility] [address] [place] [address] 92707 Screen Cutter [employer] Trimmer: BRITTANY WestfallCV (RBC) [Entitic vol]86.2 iRBkgtwp69.6-102.9 Grant HospitalComment on above:Performed By: #### DALE MALDONADO, CDP #### [facility] [address] [place] [address] 10858 Screen Cutter [employer] Trimmer: BRITTANY Westfallonocytes (Bld) [#/Vol]1.29 10*3/uLHigh0.10-1.20 Grant HospitalComment on above:Performed By: #### DALE MALDONADO, CDP #### [facility] [address] [place] [address] 84739 Screen Cutter [employer] Trimmer: BRITTANY Westfallonocytes/100 WBC (Bld)11 %Normal3-12Grant HospitalComment on above:Performed By: #### DALE MALDONADO, CDP #### [facility] [address] [place] [address] 28772 Screen Cutter And Trimmer: Jose Roberto Westfall (Seg)73 %Kont74-75TtkfdGrant HospitalComment on above:Performed By: #### DALE MALDONADO, CDP #### [facility] SystemLink[facility] [address] [place] [address] 20671 Screen Cutter [employer] Trimmer: Afshin Mansfield MDNRDARRICK Automated0.0 per 100 WBCNormal0.0Grant HospitalComment on above:Performed By: #### DALE MALDONADO, CDP #### [facility] [address] [place] [address] 70947 Screen Cutter [employer] Trimmer: Courtney Westfall mean volume (Bld) [Entitic vol]9.8 fL Normal8.1-13.5Grant HospitalComment on above:Performed By: #### DALE MALDONADO, CDP #### [facility] [address] [place] [address] 94374 Screen Cutter [employer] Trimmer: Chilango Westfall (Bld) [#/Vol]212 10*3/oTViavsu849-825 Grant HospitalComment on above:Performed By: #### DALE MALDONADO, CDP #### [facility] [address] [place] [address] 13972 Screen Cutter And Trimmer: CONOR Westfall (Bld) [#/Vol]4.19 10*6/uLLow4.21-5.77Grant HospitalComment on above:Performed By: #### DALE MALDONADO, CDP #### [facility] [address] [place] [address] 30504 Screen Cutter [employer] Trimmer: XANDER Westfall (Bld) [#/Vol]11.7 10*3/uLHigh3.5-11.3MLanterman Developmental CenterComment on above:Performed By: #### DALE MALDONADO, CDP #### [facility] [address] [place] [address] 05727 Screen Cutter And Trimmer: Afshin Mansfield [facility] Glucose Fingerstickon [id number] [Mass/Vol]110 mg/dL75 - 110 mg/dLBON MARSHALL COUNTY HEALTHCARE CENTERBasic Metabolic Panelon [id number] gap [Moles/Vol]14 mmol/L9 - 17 mmol/LBON KNOX COMMUNITY HOSPITALCalcium [Mass/Vol]8.0 mg/dLLow8.6 - 10.4 mg/dLBON KNOX COMMUNITY HOSPITALChloride [Moles/Vol]101 mmol/L98 - 107 mmol/LBON KNOX COMMUNITY HOSPITALCO2 [Moles/Vol]18 mmol/LLow20 - 31 mmol/LB[facility] Creatinine [Mass/Vol]0.67 mg/dLLow0.7 - 1.2 mg/dLBON KNOX COMMUNITY HOSPITALGFR >6060 - PINF mL/minBON SECOURS DEPAUL MEDICAL CENTERGFR Non->6060 - PINF mL/minBON SECOURS DEPAUL MEDICAL CENTERGFR/1.73 sq M.predicted MDRD (S/P/Bld) [Vol rate/Area][facility]PAUL MEDICAL CENTERComment on above:Average GFR for 70 or more years old: 75 mL/min/1.73sq m Chronic Kidney Disease: <60 mL/min/1.73sq m Kidney failure: <15 mL/min/1.73sq m eGFR calculated using average adult body mass. Additional eGFR calculator available at: http://www.Jobaline.M[employer]/multiple_crcl_2011.htm Glucose [Mass/Vol]156 mg/gNMrme48 - 99 mg/dLBON [facility] Interpretation and review of laboratory resultsAbnormalB[facility] Potassium [Moles/Vol]3.9 mmol/L3.7 - 5.3 mmol/LBON KNOX COMMUNITY HOSPITALSodium [Moles/Vol]133 mmol/HNwc781 - 144 mmol/LBON KNOX COMMUNITY HOSPITALUrea nitrogen (BldV) [Mass/Vol]12 mg/dL8 - 23 mg/dLBON MARSHALL COUNTY HEALTHCARE CENTERBasic Metabolic Profon 09-13-2022(cont.)NormalGrant HospitalComment on above:Result Comment: Average GFR for 70 or more years old: 75 mL/min/1.73sq m Chronic Kidney Disease: <60 mL/min/1.73sq m Kidney failure: <15 mL/min/1.73sq m eGFR calculated using average adult body mass. Additional eGFR calculator available at: http://www.Jobaline.[employer]/multiple_crcl_2012.htmPerformed By: #### DALE MALDONADO, CDP #### [facility] [address] [place] [address] 63977 Screen Cutter [employer] Trimmer: Afshin Mansfield MDAnion gap [Moles/Vol]14 mmol/LNormal9-17Grant HospitalComment on above:Performed By: #### DALE MALDONADO, CDP #### [facility] [address] [place] [address] 31469 Screen Cutter [employer] Trimmer: WOODROW Westfallalcium [Mass/Vol]8.0 mg/dLLow8.6-10.4Grant HospitalComment on above:Performed By: #### DALE MALDONADO, CDP #### [facility] [address] [place] [address] 29837 Screen Cutter And Trimmer: WOODROW Westfallhloride [Moles/Vol]101 mmol/XLteuus53-688LrrdpGrant HospitalComment on above:Performed By: #### DALE MALDONADO, CDP #### [facility] [address] [place] [address] 84470 Screen Cutter [employer] Trimmer: Afshin Mansfield MDCO2 [Moles/Vol]18 mmol/TMzs91-48HkrzgGrant HospitalComment on above:Performed By: #### DALE MALDONADO, CDP #### [facility] [address] [place] [address] 64289 Screen Cutter And Trimmer: WOODROW Westfallreatinine [Mass/Vol]0.67 mg/dLLow0.70-1.20Grant HospitalComment on above:Performed By: #### DALE MALDONADO, CDP #### [facility] [address] [place] [address] 33350 Screen Cutter And Trimmer: Afshin Mansfield MDGFR, Amer>60Normal>60[facility] Medical CenterComment on above:Performed By: #### DALE MALDONADO, CDP #### [facility] [address] [place] [address] 19407 Screen Cutter And Trimmer: Afshin Mansfield MDGFR,non Amer>60Normal>60[facility] Medical CenterComment on above:Performed By: #### DALE MALDONADO, CDP #### [facility] [address] [place] [address] 67693 Screen Cutter And Trimmer: Afshin Mansfield MDGlucose [Mass/Vol]156 mg/eYGhel11-50ZxyqmCommunity Memorial Hospital of San BuenaventuraComment on above:Performed By: #### DALE MALDONADO, CDP #### [facility] [address] [place] [address] 33246 Screen Cutter And Trimmer: JOJO Westfallotassium [Moles/Vol]3.9 mmol/LNormal3.7-5.3 Grant HospitalComment on above:Performed By: #### DALE MALDONADO, CDP #### [facility] [address] [place] [address] 44664 Screen Cutter [employer] Trimmer: Afshin Mansfield MDSodium [Moles/Vol]133 mmol/OYum372-318EyatkGrant HospitalComment on above:Performed By: #### DALE MALDONADO, CDP #### [facility] [address] [place] [address] 71096 Screen Cutter And Trimmer: Afshin Mansfield MDUrea nitrogen [Mass/Vol]12 mg/dLNormal8-23Grant HospitalComment on above:Performed By: #### DALE MLADONADO, CDP #### [facility] [address] [place] [address] 35504 Screen Cutter [employer] Trimmer: Afshin Mansfield, [facility] with Auto Differentialon [id number] Eos #0.54HighBON SECOURS MERCY HEALTHAbsolute Immature Granulocyte0.07B[facility]CY HEALTHAbsolute Lymph #1.07LowBON SECOURS MERCY HEALTHAbsolute Centre #1.20[facility] HEALTHBasophils (Bld) [#/Vol]0.03 10*3/uLBON SECOURS MERCY HEALTHBasophils/100 WBC (Bld)0 %0 - 2 %[facility]ALTH Eosinophils/100 WBC (Bld)5 %High1 - 4 %[facility] HOSPITALY HEALTHHematocrit (Bld) [Volume fraction]37.0 %Low40.7 - 50.3 %B[facility] SECNORTHERN STATE HOSPITALY HEALTHHemoglobin (Bld) [Mass/Vol]13.1 g/dL13 - 17 g/dLBON SECOURS WYANDOT MEMORIAL HOSPITALY MAIN [facility]AMPUS MEDICAL CENTERImmature granulocytes/100 WBC (Bld)1 %Zgqt9DTW SECOURS WYANDOT MEMORIAL HOSPITALY HEALTHInterpretation and review of laboratory resultsAbnormalBON SECOURS [facility] HOSPITALY HEALTHLymphocytes/100 WBC (Bld)10 % Low24 - 43 %BON SECNORTHERN STATE HOSPITALY THE METROHEALTH SYSTEMH (RBC) [Entitic mass]30.8 pg25.2 - 33.5 pgBON SECOURS WYANDOT MEMORIAL HOSPITALY THE METROHEALTH SYSTEMHC (RBC) [Mass/Vol]35.4 g/hKUdpd93.4 - 34.8 g/dLBON SECFAYETTE COUNTY MEMORIAL HOSPITALMCV (RBC) [Entitic vol]87.1 fL82.6 - 102.9 fLBON SECOURS MERCY HEALTHMonocytes/100 WBC (Bld)11 %3 - 12 %[facility]OSPITALY HEALTHNRBC Automated0.00.0 per 100 WBCBON SECOURS MERCY HEALTHPlatelet distribution width (Bld) [Ratio]13.7 %11.8 - 14.4 %[facility]CY HEALTHPlatelet mean volume (Bld) [Entitic vol]10.6 fL8.1 - 13.5 fLBON SECOURS MERCY HEALTHPlatelets (Bld) [#/Vol]223 10*3/uLBON SECOURS MERCY HEALTHRBC (Bld) [#/Vol]4.25 10*6/uL4.21 - 5.77 m/uLBON KNOX COMMUNITY HOSPITALSegmented neutrophils/100 WBC (Bld)73 %High36 - 65 %BON KNOX COMMUNITY HOSPITALSegs Absolute8.06BON KNOX COMMUNITY HOSPITALWBC (Bld) [#/Vol]11.0 10*3/uLBON BAN[facility] CAS[facility] GR[facility] MEDICAL CENTEROURS HAY[facility] MEMORIAL H[facility]ITAL - HAYWARDCBC with Diff on [id number]. Basophil0.03 k/uLNormal0.00-0.20Grant HospitalComment on above:Performed By: #### DALE MALDONADO, CDP #### [facility] [address] [place] [address] Screen Cutter [employer] Trimmer: Virgil Westfall.Imm.Granulocyte0.07 k/uLNormal0.00-0.30Grant HospitalComment on above:Performed By: #### DALE MALDONADO, CDP #### [facility] [address] [place] [address] Screen Cutter And Trimmer: Virgil Westfall.Neutrophil (Seg)8.06 k/uLNormal1.50-8.10 Grant HospitalComment on above:Performed By: #### DALE MALDONADO, CDP #### [facility] [address] [place] [address] Screen Cutter And Trimmer: Afshin Mansfield MDBasophils/100 WBC (Bld)0 %Normal0-2MercCommunity Memorial Hospital of San BuenaventuraComment on above:Performed By: #### DALE MALDONADO, CDP #### [facility] [address] [place] [address] Screen Cutter And Trimmer: Afshin Mansfield MDEosinophils (Bld) [#/Vol]0.54 10*3/uLHigh 0.00-0.44Grant HospitalComment on above:Performed By: #### DALE MALDONADO, CDP #### [facility] [address] [place] [address] 49528 Screen Cutter [employer] Trimmer: Afshin Mansfield MDEosinophils/100 WBC (Bld)5 %High1-4Grant HospitalComment on above:Performed By: #### DALE MALDONADO, CDP #### [facility] [address] [place] [address] 40224 Screen Cutter [employer] Trimmer: Afshin Mansfield MDErythrocyte distribution width (RBC) [Ratio]13.7 %Azswer26.8-14.4Grant HospitalComment on above:Performed By: #### DALE MALDONADO, CDP #### [facility] [address] [place] [address] 92933 Screen Cutter [employer] Trimmer: Afshin Mansfield MDHematocrit (Bld) [Volume fraction]37.0 %Low 40.7-50.3[facility] Glenn Medical CenterComment on above:Performed By: #### DALE MALDONADO, CDP #### [facility] [address] [place] [address] 45449 Screen Cutter [employer] Trimmer: Afshin Mansfield MDHemoglobin (Bld) [Mass/Vol]13.1 g/dLNormal 13.0-17.0Grant HospitalComment on above:Performed By: #### DALE MALDONADO, CDP #### [facility] [address] [place] [id number] [employer]: Afshin Mansfield MDImmature granulocytes/100 WBC (Bld)1 %[id number] HospitalComment on above:Performed By: #### DALE MALDONADO, CDP #### [facility] [address] [place] [id number] [employer]: Afshin Mansfield MDLymphocytes (Bld) [#/Vol]1.07 10*3/uLLow 1.10-3.70Grant HospitalComment on above:Performed By: #### DALE MALDONADO, CDP #### [address] [address] Screen Cutter [employer] Trimmer: Afshin Mansfield MDLymphocytes/100 WBC (Bld)10 %Wcz99-47PncdgGrant HospitalComment on above:Performed By: #### DALE MALDONADO, CDP #### [address] [address] Screen Cutter And Trimmer: BRITTANY WestfallCH (RBC) [Entitic mass]30.8 vdXhvpfj73.2-33.5 Grant HospitalComment on above:Performed By: #### DALE MALDONADO, CDP #### [facility] [address] [place] [address] Screen Cutter And Trimmer: BRITTANY WestfallCHC (RBC) [Mass/Vol]35.4 g/mFPaca53.4-34.8Grant HospitalComment on above:Performed By: #### DALE MALDONADO, CDP #### [address] [address] Screen Cutter And Trimmer: BRITTANY WestfallCV (RBC) [Entitic vol]87.1 wXOhaqmb12.6-102.9 Grant HospitalComment on above:Performed By: #### DALE MALDONADO, CDP #### [address] [address] Screen Cutter And Trimmer: BRITTANY Westfallonocytes (Bld) [#/Vol]1.20 10*3/uLNormal 0.10-1.20Grant HospitalComment on above:Performed By: #### DALE MALDONADO, CDP #### [facility] [address] [place] [address] Screen Cutter [employer] Trimmer: BRITTANY Westfallonocytes/100 WBC (Bld)11 %Normal3-12Grant HospitalComment on above:Performed By: #### DALE MALDONADO, CDP #### [facility] [place] [address] Screen Cutter And Trimmer: Jose Roberto Westfall (Seg)73 %Olaj74-35CtifzGrant HospitalComment on above:Performed By: #### DALE MALDONADO, CDP #### [facility] [address] [place] [address] Screen Cutter [employer] Trimmer: VONDA WestfallBC Automated0.0 per 100 WBCNormal0.0Grant HospitalComment on above:Performed By: #### DALE MALDONADO, CDP #### [facility] [address] [place] [address] Screen Cutter And Trimmer: Courtney Westfall mean volume (Bld) [Entitic vol]10.6 fL Normal8.1-13.5Grant HospitalComment on above:Performed By: #### DALE MALDONADO, CDP #### [facility] [address] [place] [address] Screen Cutter [employer] Trimmer: Ban Westfalltemelissa (Bld) [#/Vol]223 10*3/eLXvoeiq168-361 Grant HospitalComment on above:Performed By: #### DALE MALDONADO, CDP #### [facility] [address] [place] [address] Screen Cutter And Trimmer: KEIKO WestfallBC (Bld) [#/Vol]4.25 10*6/uLNormal4.21-5.77 Grant HospitalComment on above:Performed By: #### DALE MALDONADO, CDP #### [facility] [address] [place] [address] Screen Cutter And Trimmer: XANDER Westfall (Bld) [#/Vol]11.0 10*3/uLNormal3.5-11.3MLanterman Developmental CenterComment on above:Performed By: #### DALE MALDONADO, CDP #### [facility] [address] [place], [place] [id number] Screen Cutter And Trimmer: Vanessa Westfall,Bloodon 97-73-6148Bppa,BloodSpecimen Description .BLOOD Special Requests L HAND 20ML Culture NO GROWTH 5 DAYS Report Status FINAL 12/03/2021[facility] SpringfieldComment on above:Performed By: #### BC #### [facility] [address] [place] [address] Screen Cutter And Trimmer: Vanessa Westfall,BloodSpecimen Description .BLOOD Special Requests r hand 20ml Culture NO GROWTH 5 DAYS Report Status FINAL 12/03/2021[facility] SpringfieldComment on above:Performed By: #### DALE MALDONADO, CDP #### [facility] [address] [place], [place] [address] Screen Cutter And Trimmer: Mao Westfall, Blood 1on 47-21-8487Nuyrbhki identified Cx Nom (Unsp spec)NO GROWTH 5 DAYSBON SECOURS SalesfusionY HEALTHSpecial RequestsL HAND 20MLBON SECOURS VenJuvo HEALTHSpecimen Description.BLOODBON SECOURS [facility] SECOURS [facility] MEMORIAL HOSPITALLittleLives HEALTHBacteria identified Cx Nom (Unsp spec)NO GROWTH 5 DAYSBON SECOURS WYANDOT MEMORIAL HOSPITALY HEALTHSpecial Requestsr hand 20mlBON SECEntasso WY[facility]ORIAL HOSPITALDanforth Pewterers Specimen Description.BLOODBON SECOURS [facility] HAMILTONBON SECOURS WY[facility]OT MEMORIAL HOSPITALY HEALTHEKG 12 LeadOrdered By: Unknown Result on 14-16-0452Oinjoe Xezw02MLXNTK SECOURS SalesfusionY HEALTHQ-T Sxxhxkgg826 msBON SECOURS SalesfusionY HEALTHQRS Rfcjsebn94 msBON SECOURS WYANDOT MEMORIAL HOSPITALY HEALTHQTc Calculation (Bazett)516 msBON SECOURS MERCY HEALTHR Axis23 degreesBON SECOURS WY[facility]OT MEMORIAL HOSPITALY HEALTHT Ertd69yrsgiabKDG SECOURS [facility] HOSPITALY HEALTH Ventricular Kexz86QNFILX SECOURS [facility] HOSPITALY HEALTHBON SECOURS WY[facility]OT MEMORIAL HOSPITALY HEALTHEKG 12 Lead on 81-99-9527Vjhzcl flutter with variable block Premature supraventricular complexes and fusion complexes Low voltage QRS Inferior 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) Prolonged QT Abnormal ECG When compared with ECG of 02-DEC-2021 03:02, Junctional rhythm has replaced Atrial fibrillation ST no longer depressed in Inferior leads ST no longer depressed in Anterior leadsMHPN STSuzanne MUSEWillard, Unknown Provider - 12/03/2021 Atrial flutter with variable block Premature supraventricular complexes and fusion complexes Low voltage QRS Inferior 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) Prolonged QT Abnormal ECG When compared with ECG of 02-DEC-2021 03:02, Junctional rhythm has replaced Atrial fibrillation ST no longer depressed in Inferior leads ST no longer depressed in Anterior leads [facility] Work Phone: Osmolality, Urineon 72-27-1480Hangwvopna - Rnlco280 mOsm/yaMwnjpn40-8174QmsjoGrant HospitalComment on above:Performed By: #### IOCAL, BMP, CDP #### [facility] [address] [place] [address] Screen Cutter And Trimmer: Afshin Mansfield MDOsmolality, Cu355WLT [facility] CENTERPO Glucose Fingerstickon 64-95-4619Mtndaho [Mass/Vol]151 mg/bNRhrj97 - 110 mg/dLBON KNOX COMMUNITY HOSPITALInterpretation and review of laboratory resultsAbWagner Community [facility] Glucose [Mass/Vol]172 mg/wRCpvg56 - 110 mg/dLBON [facility] Interpretation and review of laboratory resultsAbrmInova Children's HospitalGlucose [Mass/Vol]160 mg/vKPnzi57 - 110 mg/dLBON [facility] COMM[facility] HOSPITALInterpretation and review of laboratory resultsAbnormalBUCHANAN GENERAL HOSPITALSODIUM, URINE, RANDOMon 94-42-4180Wmvcuk (U) [Moles/Vol]154 mmol/LBON KNOX COMMUNITY HOSPITALComment on above:No normal range established.[facility] MEDICAL CENTERSodium, Random Uron 44-52-2757Ydayqg (U) [Moles/Vol]154 mmol/LNormalGrant HospitalComment on above: Result Comment: No normal range established.Performed By: #### IOCAL, BMP, CDP #### [facility] [address] [place], [place] [address] Screen Cutter And Trimmer: Afshin Mansfield MDEKJulieta 12 LeadOrdered By: Huan Mayo on 25-98-6669Fqsrlv Came801XULXQM [employer] Work Phone: [phone]-T Okmblnfe721 msBON [employer] Work Phone: [phone] Kkyltalm69 msBON [employer] Phone: [phone] Calculation (Bazett)470 msBON [employer] Work Phone: [phone] Uwdi89pjkezfyYTP [employer] Phone: [phone] [facility] Phone: [phone] Hxql747KWQYZE [employer] Phone: [phone] [employer] Work Phone: [phone] 12 Leadon 51-94-6424Gpahkn fibrillation with rapid ventricular response with premature ventricular or aberrantly conducted complexes Low voltage QRS 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) ACUTE UT / STEMI Consider right ventricular involvement in acute inferior infarct Abnormal ECG When compared with ECG of 02-DEC-2021 03:02, T wave inversion no longer evident in Inferior leadsTHOMAS [facility] Huan Thrasher MD - 12/02/2021 Atrial fibrillation with rapid ventricular response with premature ventricular or aberrantly conducted complexes Low voltage QRS 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) ACUTE UT / STEMI Consider right ventricular involvement in acute inferior infarct Abnormal ECG When compared with ECG of 02-DEC-2021 03:02, T wave inversion no longer evident in Inferior leads [facility] [employer] Phone: Magnesiumon 08-62-0835Khoqjhrgu [Mass/Vol]2.0 mg/dL Normal1.6-2.6[facility] Glenn Medical CenterComment on above:Performed By: #### DALE MALDONADO, BEBO #### [facility] [address] [place], [place] [address] Screen Cutter And Trimmer: Afshin Mansfield MDMagnesium [Mass/Vol]2.0 mg/dL1.6 - 2.6 mg/dLBON [facility] HEALTHNo Panel Informationon 40-05-2278DRE [facility]OSPITALPO Glucose Fingerstickon 49-73-9193Enuckct [Mass/Vol]164 mg/jPXdaf37 - 110 mg/dL [facility] CENTERInterpretation and review of laboratory resultsAbnormal BON [facility]ALTHCARE CENTERGlucose [Mass/Vol]220 mg/dLHigh 75 - 110 mg/dLBON K[facility]X COMMUNITY HOSPITALInterpretation and review of laboratory resultsAbnormalBUCHANAN GENERAL HOSPITALGlucose [Mass/Vol]197 mg/aWVhva59 - 110 mg/dLBON [facility] HOSPITALInterpretation and review of laboratory resultsAbnormalBUCHANAN GENERAL HOSPITALGlucose [Mass/Vol]188 mg/hJIksx07 - 110 mg/dLBON [facility] Interpretation and review of laboratory resultsAbnormSpotsylvania Regional Medical Center B[facility] HOSPITALPhosphoruson 93-87-6635Dmzrjjdfn [Mass/Vol]2.8 mg/dL2.5 - 4.5 mg/dLBON KNOX COMMUNITY HOSPITALPhosphorus, Inorg.on 95-71-5538Evuisjrzgf, Inorg.2.8 mg/dLNormal2.5-4.5Grant HospitalComment on above: Performed By: #### DALE MALDONADO, CDP #### [facility] [address] [place] [address] Screen Cutter And Trimmer: Afshin Mansfield MDTroponinon 57-53-7420Kxefsffk, High Sens15 ng/L Normal0-22Grant HospitalComment on above:Result Comment: High Sensitivity Troponin values cannot be compared with other Troponin methodologies. Patients with high levels of Biotin oral intake (i.e >5mg/day) may have falsely decreased Troponin levels. Samples collected within 8 hours of biotin intake may require additional information for diagnosis.Performed By: #### DALE MALDONADO, CDP #### [facility] [place] [id number] Screen Cutter And Trimmer: Quinton Westfall, High Ltugphjhhnt84 ng/L0 - 22 ng/LBON B[facility] GR[facility] MEDICAL CENTERVoices [facility] on above: High Sensitivity Troponin values cannot be compared with other Troponin methodologies. Patients with high levels of Biotin oral intake (i.e >5mg/day) may have falsely decreased Troponin levels. Samples collected within 8 hours of biotin intake may require additional information for diagnosis. MIRA [employer] StoreTroporo, High Sens15 ng/LNormal0-22MerGlenn Medical CenterComment on above:Result Comment: High Sensitivity Troponin values cannot be compared with other Troponin methodologies. Patients with high levels of Biotin oral intake (i.e >5mg/day) may have falsely decreased Troponin levels. Samples collected within 8 hours of biotin intake may require additional information for diagnosis.Performed By: #### DALE MALDONADO, CDP #### [facility] [address] [place], [place] [address] Screen Cutter And Trimmer: Quinton Westfall High Jpgpgdwfbis80 ng/L0 - 22 ng/LBON [employer] [facility] on above: High Sensitivity Troponin values cannot be compared with other Troponin methodologies. Patients with high levels of Biotin oral intake (i.e >5mg/day) may have falsely decreased Troponin levels. Samples collected within 8 hours of biotin intake may require additional information for diagnosis. Greenhouse SoftwareBasic Metabolic Panelon 59-65-3210Gtgtq gap [Moles/Vol] 11 mmol/L9 - 17 mmol/LBON SECVoices HEALTHCalcium [Mass/Vol]8.1 mg/dLLow8.6 - 10.4 mg/dLBON [facility]OU[facility] MERCY HEALTHChloride [Moles/Vol]102 mmol/L98 - 107 mmol/LBON [facility]OURS MERCY HEALTHCO2 [Moles/Vol]19 mmol/LLow20 - 31 mmol/LBON [facility] HOSPITALCreatinine [Mass/Vol]0.76 mg/dL0.7 - 1.2 mg/dLBON KNOX COMMUNITY HOSPITALGFR >6060 - PINF mL/minBON KNOX COMMUNITY HOSPITALGFR Non->6060 - PINF mL/minBON KNOX COMMUNITY HOSPITALGFR/1.73 sq M.predicted MDRD (S/P/Bld) [Vol rate/Area][facility] MEDICAL CENTERComment on above:Average GFR for 70 or more years old: 75 mL/min/1.73sq m Chronic Kidney Disease: <60 mL/min/1.73sq m Kidney failure: <15 mL/min/1.73sq m eGFR calculated using average adult body mass. Additional eGFR calculator available at: http://www.Vision [employer] Deg[employer] (V3D)/10Six_crcl_2012.htm Glucose [Mass/Vol]176 mg/xSGmho43 - 99 mg/dLBON [facility] Interpretation and review of laboratory resultsAbnormalB[facility] Potassium [Moles/Vol]4.2 mmol/L3.7 - 5.3 mmol/LBON [facility]X COMMUNITY HOSPITALSodium [Moles/Vol]132 mmol/ZOeu386 - 144 mmol/LBON [facility] COMMUNITY HOSPITALUrea nitrogen (BldV) [Mass/Vol]16 mg/dL8 - 23 mg/dLBON KNOX COMMUNITY HOSPITALBON K[facility] COMMUNITY HOSPITALBasic Metabolic Profon 12-01-2021(cont.)[facility] SpringfieldComment on above:Result Comment: Average GFR for 70 or more years old: 75 mL/min/1.73sq m Chronic Kidney Disease: <60 mL/min/1.73sq m Kidney failure: <15 mL/min/1.73sq m eGFR calculated using average adult body mass. Additional eGFR calculator available at: http://www.Vision 360 Degres (V3D)/multiple_crcl_2012.htmPerformed By: #### CDP, BMP #### [facility] [address] [place], [place] [address] Screen Cutter And Trimmer: Afshin Mansfield MDAnion gap [Moles/Vol]11 mmol/LNormal9-17Grant HospitalComment on above:Performed By: #### CDP, BMP #### [facility] [address] [place] [address] Screen Cutter And Trimmer: Afshin Mansfield MDCalcium [Mass/Vol]8.1 mg/dLLow8.6-10.4Grant HospitalComment on above:Performed By: #### CDP, BMP #### [address] [address] Screen Cutter And Trimmer: Afshin Mansfield MDChloride [Moles/Vol]102 mmol/WBwwxyu91-175TgsobGrant HospitalComment on above:Performed By: #### CDP, BMP #### [address] [address] Screen Cutter And Trimmer: Afshin Mansfield MDCO2 [Moles/Vol]19 mmol/HHwh85-15OyxebGrant HospitalComment on above:Performed By: #### CDP, BMP #### [facility] [address] [place] [address] Screen Cutter And Trimmer: Afshin Mansfield MDCreatinine [Mass/Vol]0.76 mg/dLNormal0.70-1.20 Grant HospitalComment on above:Performed By: #### CDP, BMP #### [facility] [address] [place] [address] Screen Cutter [employer] Trimmer: MELVIN Westfall, Amer>60Normal>60Grant HospitalComment on above:Performed By: #### CDP, BMP #### [facility] [address] [place] [address] Screen Cutter And Trimmer: MELVIN Westfall,non Amer>60Normal>60Grant HospitalComment on above:Performed By: #### CDP, BMP #### [facility] [place] [address] Screen Cutter And Trimmer: Afshin Mansfield MDGlucose [Mass/Vol]176 mg/qIFofa54-80BgrhuLanterman Developmental CenterComment on above:Performed By: #### CDP, BMP #### [facility] [address] [place] [address] Screen Cutter And Trimmer: Afshin Mansfield, MDPotassium [Moles/Vol]4.2 mmol/LNormal3.7-5.3 Grant HospitalComment on above:Performed By: #### CDP, BMP #### [facility] [address] [place] [address] Screen Cutter And Trimmer: Afshin Mansfield MDSodium [Moles/Vol]132 mmol/BAwr150-136LheydGrant HospitalComment on above:Performed By: #### BEBO, BMP #### [facility] [address] [place] [address] Screen Cutter And Trimmer: Afshin Mansfield MDUrea nitrogen [Mass/Vol]16 mg/dLNormal8-23Grant HospitalComment on above:Performed By: #### CDP, BMP #### [address] [address] Screen Cutter And Trimmer: Afshin Mansfield [facility] with Auto Differentialon 32-93-2154Nugladkt Eos #0.00[facility] HEALTHAbsolute Immature Granulocyte0.00[facility] HEALTHAbsolute Lymph #1.35[facility] HEALTHAbsolute Centre #1.80High [facility] HEALTHBasophils (Bld) [#/Vol]0.00 10*3/uLBON [facility]RS MERCY HEALTHBasophils/100 WBC (Bld)0 %0 - 2 %[facility] HEALTHEosinophils/100 WBC (Bld)0 %Low1 - 4 %[facility]CY HEALTHHematocrit (Bld) [Volume fraction] 45.2 %40.7 - 50.3 %[facility] MEDICAL CENTERHemoglobin (Bld) [Mass/Vol]15.6 g/dL 13 - 17 g/dLBON SECFAYETTE COUNTY MEMORIAL HOSPITALImmature granulocytes/100 WBC (Bld)0 %0BON [facility] HOSPITALInterpretation and review of laboratory resultsAbnormalBON KNOX COMMUNITY HOSPITALLymphocytes/100 WBC (Bld)9 %Low24 - 44 %[facility]ON [facility] CENTERH (RBC) [Entitic mass]30.5 pg25.2 - 33.5 pgBON SYCAMORE MEDICAL CENTERHC (RBC) [Mass/Vol]34.5 g/dL28.4 - 34.8 g/dLBON SECMERCY HEALTH PERRYSBURG HOSPITALV (RBC) [Entitic vol]88.5 fL82.6 - 102.9 fLBON SECOURS DEPAUL MEDICAL CENTERMonocytes/100 WBC (Bld)12 %High1 - 7 %[facility] MEDICAL CENTERMorphology Callum (Bld) [Interp]Normal B[facility]UNITY HOSPITALNRBC Automated0.00.0 per 100 WBCBON SECOURS [facility]ENTER Platelet distribution width (Bld) [Ratio]13.8 %11.8 - 14.4 %[facility] DEPAUL MEDICAL CENTERPlatelet mean volume (Bld) [Entitic vol]9.6 fL8.1 - 13.5 fLBON SECOURS DEPAUL MEDICAL CENTERPlatelets (Bld) [#/Vol]235 10*3/uLBON KNOX COMMUNITY HOSPITALRBC (Bld) [#/Vol]5.11 10*6/uL4.21 - 5.77 m/uLBON KNOX COMMUNITY HOSPITALSegmented neutrophils/100 WBC (Bld)79 %High36 - 66 %BON [facility] COMMUNITY HOSPITALSegs Absolute 11.85HighBON KNOX COMMUNITY HOSPITALWBC (Bld) [#/Vol]15.0 10*3/uLHighBON MARSHALL COUNTY HEALTHCARE CENTERCBC with Diffon 67-80-7672Ewk. Basophil0.00 k/uLNormal0.0-0.2[facility] Glenn Medical CenterComment on above:Performed By: #### CDP, BMP #### [facility] [address] [place] [address] Screen Cutter And Trimmer: MDAbs. MalouImm.Granulocyte0.00 k/uLNormal0.00-0.30Grant HospitalComment on above:Performed By: #### CDP, BMP #### [address] [address] Screen Cutter And Trimmer: Virgil Westfall.Neutrophil (Seg)11.85 k/uLHigh1.8-7.7Grant HospitalComment on above:Performed By: #### CDP, BMP #### [address] [address] Screen Cutter And Trimmer: Afshin Mansfield MDBasophils/100 WBC (Bld)0 %Normal0-2MLanterman Developmental CenterComment on above:Performed By: #### CDP, BMP #### [address] [address] Screen Cutter [employer] Trimmer: Afshin Mansfield MDEosinophils (Bld) [#/Vol]0.00 10*3/uLNormal 0.0-0.4Grant HospitalComment on above:Performed By: #### CDP, BMP #### [address] [address] Screen Cutter And Trimmer: Afshin Mansfield MDEosinophils/100 WBC (Bld)0 %Low1-4Grant HospitalComment on above:Performed By: #### CDP, BMP #### [facility] [address] [place] [address] Screen Cutter [employer] Trimmer: Maurice Westfallmature granulocytes/100 WBC (Bld)0 %Normal0 Grant HospitalComment on above:Performed By: #### CDP, BMP #### [facility] [address] [place] [address] Screen Cutter [employer] Trimmer: Afshin Mansfield MDLymphocytes (Bld) [#/Vol]1.35 10*3/uLNormal 1.0-4.8Grant HospitalComment on above:Performed By: #### CDP, BMP #### [facility] [address] [place] [address] Screen Cutter [employer] Trimmer: Afshin Mansfield MDLymphocytes/100 WBC (Bld)9 %Uoi79-61SyfhdGrant HospitalComment on above:Performed By: #### CDP, BMP #### [facility] [address] [place] [address] Screen Cutter [employer] Trimmer: BRITTANY Westfallonocytes (Bld) [#/Vol]1.80 10*3/uLHigh0.1-0.8 Grant HospitalComment on above:Performed By: #### CDP, BMP #### [address] [address] Screen Cutter And Trimmer: BRITTANY Westfallonocytes/100 WBC (Bld)12 %High1-7Grant HospitalComment on above:Performed By: #### CDP, BMP #### [facility] [address] [place] [address] Screen Cutter [employer] Trimmer: BRITTANY Westfallorphology Callum (Bld) [Interp]NormalNormalGrant HospitalComment on above:Performed By: #### CDP, BMP #### [facility] [address] [place] [address] Screen Cutter [employer] Trimmer: Afshin Mansfield MDNeutrophil (Seg)79 %Ugux56-26ZvejsGrant HospitalComment on above:Performed By: #### CDP, BMP #### [facility] [address] [place] [address] Screen Cutter [employer] Trimmer: Afshin Mansfield MDErythrocyte distribution width (RBC) [Ratio]13.8 %Jqispa03.8-14.4Grant HospitalComment on above:Performed By: #### CDP, BMP #### [address] [address] Screen Cutter And Trimmer: Afshin Mansfield MDHematocrit (Bld) [Volume fraction]45.2 %Normal 40.7-50.3Mtrihealthy Glenn Medical CenterComment on above:Performed By: #### CDP, BMP #### [place] [address] [employer] C[employer] Trimmer: Afshin Mansfield MDHemoglobin (Bld) [Mass/Vol]15.6 g/dLNormal 13.0-17.0Grant HospitalComment on above:Performed By: #### CDP, BMP #### [place] [address] [employer] Cutter And Trimmer: BRITTANY WestfallCH (RBC) [Entitic mass]30.5 ueUcgxrx99.2-33.5 Grant HospitalComment on above:Performed By: #### BEBO, BMP #### [place] [address] [employer] Cutter And Trimmer: BRITTANY WestfallCHC (RBC) [Mass/Vol]34.5 g/yBEzilwd61.4-34.8 Grant HospitalComment on above:Performed By: #### CDP, BMP #### [place] [address] Screen Cutter And Trimmer: BRITTANY WestfallCV (RBC) [Entitic vol]88.5 eEEgghmq69.6-102.9 Grant HospitalComment on above:Performed By: #### CDP, BMP #### [address] [address] Screen Cutter And Trimmer: Afshin Mansfield MDNRBC Automated0.0 per 100 WBCNormal0.0Grant HospitalComment on above:Performed By: #### CDP, BMP #### [facility] [address] [place] [address] Screen Cutter And Trimmer: Courtney Westfall mean volume (Bld) [Entitic vol]9.6 fL Normal8.1-13.5Grant HospitalComment on above:Performed By: #### CDP, BMP #### [facility] [address] [place] [address] Screen Cutter And Trimmer: Ban Westfalltemelissa (Bld) [#/Vol]235 10*3/rKPyrlnf976-934 Grant HospitalComment on above:Performed By: #### BEBO, BMP #### [address] [address] Screen Cutter And Trimmer: KEIKO WestfallBC (Bld) [#/Vol]5.11 10*6/uLNormal4.21-5.77 Grant HospitalComment on above:Performed By: #### BEBO, BMP #### [address] [address] Screen Cutter And Trimmer: XANDER Westfall (Bld) [#/Vol]15.0 10*3/uLHigh3.5-11.3MLanterman Developmental CenterComment on above:Performed By: #### BEBO, BMP #### [facility] [address] [place] [address] Screen Cutter And Trimmer: REYNA Westfall Complete 2D W Doppler W Coloron 12-01-2021 Transthoracic Echocardiography Report (TTE) Patient Name EDGAR Date of Study 11/30/2021 SHAHRZAD Date of 1945 Gender Male Age 76 year(s) Race Room Number 0122 Height: 73 inch, 185.42 cm Corporate ID [id number] Weight: 207 pounds, 93.9 kg # Patient Acct [id number] BSA: 2.18 m^2 BMI: 27.31 # kg/m^2 MR # [id number] Veterinary Surgery Technician Rosmery Walsh Interpreting Physician Vicki Rob Fellow Referring Nurse Practitioner Interpreting Referring Physician Yolie Cabrera Fellow Type of Study TTE procedure:2D Echocardiogram, M-Mode, Doppler, Color Doppler, Bubble Study. Procedure Date Date: 11/30/2021 Start: 02:35 PM Study Location: [facility] Technical Quality: Adequate visualization Indications:Stroke. History / [...] Height: 73 inch, 185.42 cm Corporate ID [id number] Weight: 207 pounds, 93.9 kg # Patient Acct [id number] BSA: 2.18 m^2 BMI: 27.31 # kg/m^2 MR # [id number] Veterinary Surgery Technician Rosmery Walsh Interpreting Physician Vicki Rob Fellow Referring Nurse Practitioner Interpreting Referring Physician Yolie Cabrera Fellow Type of Study TTE procedure:2D Echocardiogram, M-Mode, Doppler, Color Doppler, Bubble Study. Procedure Date Date: 11/30/2021 Start: 02:35 PM Study Location: [facility] Technical Quality: Adequate visualization Indications:Stroke. History / [...] E' velocity:0.12 m/s Lateral Wall E/E':7.5 [facility] [employer] Work Phone: [facility] Work Phone: poc Glucose Fingerstickon [id number] [Mass/Vol] 132 mg/uCYkov44 - 110 mg/dLBON KNOX COMMUNITY HOSPITALInterpretation and review of laboratory resultsAbnoSt. Michael's Hospital Glucose [Mass/Vol]129 mg/tNNnxi91 - 110 mg/dLB[facility] Interpretation and review of laboratory resultsAbnoSiouxland Surgery CenterGlucose [Mass/Vol]369 mg/rPJcnv22 - 110 mg/dLBON KNOX COMMUNITY HOSPITALInterpretation and review of laboratory resultsAbnormvaBUCHANAN GENERAL HOSPITALGlucose [Mass/Vol]196 mg/yTTcob65 - 110 mg/dLBON KNOX COMMUNITY HOSPITALInterpretation and review of laboratory results AbnormalBON MARSHALL COUNTY HEALTHCARE CENTERGlucose [Mass/Vol]181 mg/kQInng22 - 110 mg/dLBON KNOX COMMUNITY HOSPITALInterpretation and review of laboratory resultsAbnormalBUCHANAN GENERAL HOSPITAL Urinalysis w/ Microon 34-84-7592Eflyrfxbw, SemiQt,UrNegativeNormalNEGGrant HospitalComment on above:Performed By: #### UAMIC #### [address] [address] Screen Cutter And Trimmer: Lia Westfall UrineLARGEAbnormalMercy Health Anderson HospitalComment on above:Performed By: #### UAMIC #### [address] [address] Screen Cutter And Trimmer: WOODROW Westfallasts2 TO 5 HYALINENormal0-8Grant HospitalComment on above:Result Comment: Reference range defined for non- centrifuged specimen.Performed By: #### UAMIC #### [facility] [address] [place] [address] Screen Cutter And Trimmer: Danielle Westfallrity (U)ClearNormalCLEARGrant HospitalComment on above:Performed By: #### UAMIC #### [employer] [facility] [address] [place] [address] Screen Cutter And Trimmer: WOODROW Westfallolor (U)YellowNormalYELMerGlenn Medical CenterComment on above:Performed By: #### UAMIC #### [facility] [address] [address] Screen Cutter And Trimmer: Afshin Mansfield MDEpithelial cells LM Ql (Urine sed)0 TO 2Normal 0-5Grant HospitalComment on above:Performed By: #### UAMIC #### [address] [address] Screen Cutter And Trimmer: Afshin Mansfield MDGlucose Ql (U)NegativeNormalNEGGrant HospitalComment on above:Performed By: #### UAMIC #### [address] [address] Screen Cutter And Trimmer: Afshin Mansfield MDKetones Ql (U)TRACEAbnormalNEGGrant HospitalComment on above:Performed By: #### UAMIC #### [address] [address] Screen Cutter And Trimmer: Afshin Mansfield MDLeukocyte esterase Test strip Ql (U)Negative NormalNEGGrant HospitalComment on above:Performed By: #### UAMIC #### [address] [address] Screen Cutter And Trimmer: Afshin Mansfield MDNitrite,UrNegativeNormvaNEGGrant HospitalComment on above:Performed By: #### UAMIC #### [address] [address] Screen Cutter And Trimmer: Afshin Mansfield [facility],Ur5.0Ebjnlm7.0-8.0Grant HospitalComment on above:Performed By: #### UAMIC #### [address] [address] Screen Cutter And Trimmer: JOJO Westfallrotein Ql (U)TRACEAbnormalNEGGrant HospitalComment on above:Performed By: #### UAMIC #### [address] [address] Screen Cutter And Trimmer: KRISTIAN Westfallpec. [place],Ur1.337Mlpo0.005-1.030Grant HospitalComment on above:Performed By: #### UAMIC #### [facility] [place] [address] Screen Cutter And Trimmer: oLgan Westfall RBC's20 TO 30Niqjye9-2RrtkvGrant HospitalComment on above:Result Comment: Reference range defined for non- centrifuged specimen.Performed By: #### UAMIC #### [facility] [address] [place] [address] Screen Cutter [employer] Trimmer: Logan Westfall WBC's2 TO 8Trlaqb5-7DdnvoGrant HospitalComment on above:Performed By: #### UAMIC #### [facility] [address] [place] [address] Screen Cutter And Trimmer: Afshin Mansfield MDUrobilinogen,UrNormalNormalNORMGrant HospitalComment on above:Performed By: #### UAMIC #### [facility] [address] [place] [address] Screen Cutter [employer] Trimmer: Afshin Mansfield MDUrinalysis with Microscopicon 12-01-2021 Bilirubin UrineNegativeNEGATIVEBON SECFioCasts UA2 TO 5 HYALINE Reference range defined for non-centrifuged specimen.BON SECFio Color, UAYellowYellowBON [facility] Verinata HealthEpithelial Cells UA0 TO 2BON SECFioGlucose, UrNegativeNEGATIVEBON SECFio Interpretation and review of laboratory resultsAbnormalBON [facility] Verinata Health Ketones Ql (U)TRACEAbnormalNEGATIVEBON SECFioLeukocyte esterase Test strip Ql (U)NegativeNEGATIVEBON SECVoices HEALTHNitrite, UrineNegative NEGATIVEBON SECFiopH, UA5.55 - 8BON SECOURS VenJuvo HEALTHProtein, UATRACEAbnormalNEGATIVEBON SECFioRBC, UA20 TO 50BON SECVoices HEALTHComment on above:Reference range defined for non-centrifuged specimen. Specific [place], UA1.674Svwm4.005 - 1.03BON SECOURS VenJuvo HEALTHTurbidity UA ClearClearBON KNOX COMMUNITY HOSPITALUrine HgbLARGEAbnormalNEGATIVEBON KNOX COMMUNITY HOSPITALUrobilinogen, UrineNormalNormalBON KNOX COMMUNITY HOSPITALWBC, UA2 TO 5 BON MAR[facility]ALTHCARE CENTERBac Metabolic Panelon 24-87-4030Mfkfp gap [Moles/Vol]11 mmol/L9 - 17 mmol/LBON [facility] Calcium [Mass/Vol]7.7 mg/dLLow8.6 - 10.4 mg/dLBON KNOX COMMUNITY HOSPITALChloride [Moles/Vol]102 mmol/L98 - 107 mmol/LBON KNOX COMMUNITY HOSPITALCO2 [Moles/Vol]21 mmol/L20 - 31 mmol/LBON [facility]NOX COMMUNITY HOSPITALCreatinine [Mass/Vol]0.79 mg/dL0.7 - 1.2 mg/dLBON KNOX COMMUNITY HOSPITALGFR >6060 - PINF mL/minBON SECOURS DEPAUL MEDICAL CENTERGFR Non->6060 - PINF mL/minBON SECOURS DEPAUL MEDICAL CENTERGFR/1.73 sq M.predicted MDRD (S/P/Bld) [Vol rate/Area]B[facility] COMMUNITY HOSPITALComment on above:Average GFR for 70 or more years old: 75 mL/min/1.73sq m Chronic Kidney Disease: <60 mL/min/1.73sq m Kidney failure: <15 mL/min/1.73sq m eGFR calculated using average adult body mass. Additional eGFR calculator available at: http://www.Jobaline.Miso Media/multiple_crcl_2011.htm Glucose [Mass/Vol]196 mg/iCMqrp51 - 99 mg/dLB[facility] Interpretation and review of laboratory resultsAbnormalB[facility] Potassium [Moles/Vol]4.5 mmol/L3.7 - 5.3 mmol/LBON KNOX COMMUNITY HOSPITALSodium [Moles/Vol]134 mmol/KBfi883 - 144 mmol/LBON KNOX COMMUNITY HOSPITALUrea nitrogen (BldV) [Mass/Vol]17 mg/dL8 - 23 mg/dLBON [facility] Metabolic Profon 45-93-0798Tzbqxew [Mass/Vol]196 mg/lURwgz42-21Cvkgs Glenn Medical CenterComment on above:Performed By: #### MARIUSZ GLYHGB, BMP #### [facility] [address] [place] [address] Screen Cutter And Trimmer: Afshin Mansfield MD(cont.)[facility] Comment on above:Result Comment: Average GFR for 70 or more years old: 75 mL/min/1.73sq m Chronic Kidney Disease: <60 mL/min/1.73sq m Kidney failure: <15 mL/min/1.73sq m eGFR calculated using average adult body mass. Additional eGFR calculator available at: http://www.Vision [employer] (V3D)/multiple_crcl_2012.htmPerformed By: #### LÓPEZ VEEHGLakshmi, BMP #### [address] [address] Screen Cutter [employer] Trimmer: Afshin Mansfeild MDAnion gap [Moles/Vol]11 mmol/LNormal9-17Grant HospitalComment on above:Performed By: #### LÓPEZ VEEHGLakshmi, BMP #### [facility] [address] [place] [address] Screen Cutter [employer] Trimmer: Afshin Mansfield MDCalcium [Mass/Vol]7.7 mg/dLLow8.6-10.4Grant HospitalComment on above:Performed By: #### MARIUSZ GLYHGB, BMP #### [facility] [address] [place] [address] Screen Cutter And Trimmer: Afshin Mansfield MDChloride [Moles/Vol]102 mmol/BLvxucj40-104VqbdaGrant HospitalComment on above:Performed By: #### MARIUSZ, GLYHGB, BMP #### [facility] [address] [place] [address] Screen Cutter And Trimmer: Afshin Mansfield MDCO2 [Moles/Vol]21 mmol/IIadjcy74-68CeldyGrant HospitalComment on above:Performed By: #### CBC, GLYHGB, BMP #### [facility] [address] [place] [address] Screen Cutter And Trimmer: WOODROW Westfallreatinine [Mass/Vol]0.79 mg/dLNormal0.70-1.20 Grant HospitalComment on above:Performed By: #### CBC, GLYHGB, BMP #### [facility] [address] [place] [address] Screen Cutter And Trimmer: Afshin Mansfield MDGFR, Amer>60Normal>60Grant HospitalComment on above:Performed By: #### MARIUSZ, GLYHGB, BMP #### [address] [address] Screen Cutter And Trimmer: Afshin Mansfield MDGFR,non Amer>60Normal>60Grant HospitalComment on above:Performed By: #### MARIUSZ, GLYHGB, BMP #### [address] [address] Screen Cutter And Trimmer: JOJO Westfallotassium [Moles/Vol]4.5 mmol/LNormal3.7-5.3 Grant HospitalComment on above:Performed By: #### CBC, GLYHGB, BMP #### [address] [address] Screen Cutter And Trimmer: Afshin Mansfield MDSodium [Moles/Vol]134 mmol/URxe176-444KgpkkGrant HospitalComment on above:Performed By: #### CBC, GLYHGB, BMP #### [address] [address] Screen Cutter And Trimmer: Afshin Mansfield MDUrea nitrogen [Mass/Vol]17 mg/dLNormal8-23Grant HospitalComment on above:Performed By: #### CBC, GLYHGB, BMP #### [facility] [address] [place] [address] Screen Cutter And Trimmer: Afshin Mansfield [facility] with Auto Differentialon [id number] Eos #BON SECFAYETTE COUNTY MEM[facility]IAL HOSPITALAbsolute Immature Granulocyte0.12B[facility] HAMILTONAbsolute Lymph #1.09LowBON SECOURS [facility]OT MEMORIAL HOSPITALY HEALTHAbsolute Centre #1.40HighBON SECOURS [facility] HEALTH HAMILTONBasophils AbsoluteBON SECOURS [facility]ALTH HAMILTONBasophils/100 WBC (Bld)0 %0 - 2 %[facility] COMM[facility] HOSPITALEosinophils/100 WBC (Bld)0 %Low1 - 4 %[facility]PAUL MEDICAL CENTERHematocrit (Bld) [Volume fraction]41.7 %40.7 - 50.3 %B[facility] DEPAUL MEDICAL CENTERHemoglobin (Bld) [Mass/Vol]13.9 g/dL13 - 17 g/dLBON SECFAYETTE COUNTY MEMORIAL HOSPITALImmature granulocytes/100 WBC (Bld)1 %Cimy0STH [facility] Interpretation and review of laboratory resultsAbnormalBON [facility] Lymphocytes/100 WBC (Bld)8 %Low24 - 43 %[facility] HOSPITALH (RBC) [Entitic mass]29.6 pg25.2 - 33.5 pgBON SYCAMORE MEDICAL CENTERHC (RBC) [Mass/Vol] 33.3 g/dL28.4 - 34.8 g/dLBON SECMERCY HEALTH PERRYSBURG HOSPITALV (RBC) [Entitic vol]88.7 fL 82.6 - 102.9 fLBON KNOX COMMUNITY HOSPITALMonocytes/100 WBC (Bld)10 %3 - 12 %B[facility]PAUL MEDICAL CENTERNRBC Automated0.00.0 per 100 WBCBON SECOURS [facility]UL [facility]ICAL [facility]ENTER Platelet distribution width (Bld) [Ratio]14.0 %11.8 - 14.4 %B[facility] DEPAUL MEDICAL CENTERPlatelet mean volume (Bld) [Entitic vol]10.2 fL8.1 - 13.5 fLBON [facility] HEALTHPlatelets (Bld) [#/Vol]230 10*3/uLBON SECFAYETTE COUNTY MEMORIAL HOSPITALRBC (Bld) [#/Vol]4.70 10*6/uL4.21 - 5.77 m/uLBON KNOX COMMUNITY HOSPITALSegmented neutrophils/100 WBC (Bld)81 %High36 - 65 %BON KNOX COMMUNITY HOSPITALSegs Absolute 11.07HighBON KNOX COMMUNITY HOSPITALWBC (Bld) [#/Vol]13.7 10*3/uLHighBON MARSHALL COUNTY HEALTHCARE CENTERCBC with Diffon [id number]. Basophil<0.03 Normal0.00-0.20Grant HospitalComment on above:Performed By: #### CBC, GLYHGB, BMP #### [employer] [address] [place] [address] Screen Cutter And Trimmer: Virgil Westfall. Eosinophil<0.77Gzeyle2.00-0.44Grant HospitalComment on above:Performed By: #### CBC, GLYHGB, BMP #### [facility] [address] [place] [address] Screen Cutter And Trimmer: Virgil Westfall.Imm.Granulocyte0.12 k/uLNormal0.00-0.30Grant HospitalComment on above:Performed By: #### CBC, GLYHGB, BMP #### [employer] [address] [place] [address] Screen Cutter And Trimmer: Virgil Westfall.Neutrophil (Seg)11.07 k/uLHigh1.50-8.10Grant HospitalComment on above:Performed By: #### CBC, GLYHGB, BMP #### [employer] [address] [place] [address] Screen Cutter And Trimmer: Afshin Mansfield MDBasophils/100 WBC (Bld)0 %Normal0-2MercCommunity Memorial Hospital of San BuenaventuraComment on above:Performed By: #### CBC, GLYHGB, BMP #### [employer] [address] [place] [address] Screen Cutter And Trimmer: Afshin Mansfield MDEosinophils/100 WBC (Bld)0 %Low1-4Grant HospitalComment on above:Performed By: #### CBC, GLYHGB, BMP #### [facility] [address] [place] [address] Screen Cutter [employer] Trimmer: Afshin Mansfield MDErythrocyte distribution width (RBC) [Ratio]14.0 %Xgcebc45.8-14.4Grant HospitalComment on above:Performed By: #### MARIUSZ, GLYHGB, BMP #### [facility] [address] [place] [address] Screen Cutter [employer] Trimmer: Afshin Mansfield MDHematocrit (Bld) [Volume fraction]41.7 %Normal 40.7-50.3Mtrihealthy Glenn Medical CenterComment on above:Performed By: #### MARIUSZ, GLYHGB, BMP #### [facility] [address] [place] [address] Screen Cutter And Trimmer: Afshin Mansfield MDHemoglobin (Bld) [Mass/Vol]13.9 g/dLNormal 13.0-17.0Grant HospitalComment on above:Performed By: #### CBC, GLYHGB, BMP #### [facility] [address] [place] [address] Screen Cutter And Trimmer: Afshin Mansfield MDImmature granulocytes/100 WBC (Bld)1 %Qita3GvukqGrant HospitalComment on above:Performed By: #### CBC, GLYHGB, BMP #### [facility] [address] [place] [address] Screen Cutter [employer] Trimmer: Afshin Mansfield MDLymphocytes (Bld) [#/Vol]1.09 10*3/uLLow 1.10-3.70Grant HospitalComment on above:Performed By: #### CBC, GLYHGB, BMP #### [address] [address] Screen Cutter [employer] Trimmer: Afshin Mansfield MDLymphocytes/100 WBC (Bld)8 %Hil01-81CaiilGrant HospitalComment on above:Performed By: #### CBC, GLYHGB, BMP #### [address] [address] Screen Cutter [employer] Trimmer: BRITTANY WestfallCH (RBC) [Entitic mass]29.6 txVnfeje44.2-33.5 Grant HospitalComment on above:Performed By: #### CBC, GLYHGB, BMP #### [address] [address] Screen Cutter [employer] Trimmer: BRITTANY WestfallCHC (RBC) [Mass/Vol]33.3 g/zFUtvpsx36.4-34.8 Grant HospitalComment on above:Performed By: #### CBC, GLYHGB, BMP #### [address] [address] Screen Cutter And Trimmer: BRITTANY WestfallCV (RBC) [Entitic vol]88.7 mHMlkfdh84.6-102.9 Grant HospitalComment on above:Performed By: #### CBC, GLYHGB, BMP #### [address] [address] [employer] Cutter [employer] Trimmer: Afshin Mansfield MDMonocytes (Bld) [#/Vol]1.40 10*3/uLHigh0.10-1.20 Grant HospitalComment on above:Performed By: #### CBC, GLYHGB, BMP #### [address] [address] Screen Cutter [employer] Trimmer: BRITTANY Westfallonocytes/100 WBC (Bld)10 %Normal3-12Grant HospitalComment on above:Performed By: #### CBC, GLYHGB, BMP #### [facility] [address] [place] [address] Screen Cutter And Trimmer: Jose Roberto Westfall (Seg)81 %Jghb85-24JovsaGrant HospitalComment on above:Performed By: #### CBC, GLYHGB, BMP #### [facility] [address] [place] [address] Screen Cutter And Trimmer: Afshin Mansfield MDNRBC Automated0.0 per 100 WBCNormal0.0Grant HospitalComment on above:Performed By: #### CBC, GLYHGB, BMP #### [facility] [address] [place] [address] Screen Cutter And Trimmer: Courtney Westfall mean volume (Bld) [Entitic vol]10.2 fL Normal8.1-13.5Grant HospitalComment on above:Performed By: #### CBC, GLYHGB, BMP #### [facility] [address] [place] [address] Screen Cutter [employer] Trimmer: Ban Westfalltelets (Bld) [#/Vol]230 10*3/nUBfoguq272-681 Grant HospitalComment on above:Performed By: #### CBC, GLYHGB, BMP #### [facility] [address] [place] [address] Screen Cutter [employer] Trimmer: KEIKO WestfallBC (Bld) [#/Vol]4.70 10*6/uLNormal4.21-5.77 Grant HospitalComment on above:Performed By: #### CBC, GLYHGB, BMP #### [facility] [address] [place] [address] Screen Cutter [employer] Trimmer: KIMBERLEE WestfallBC (Bld) [#/Vol]13.7 10*3/uLHigh3.5-11.3MLanterman Developmental CenterComment on above:Performed By: #### CBC, GLYHGB, BMP #### [facility] [address] [place] [address] [employer] Cutter [employer] Trimmer: EDWIGE Westfall 12 LeadOrdered By: Vicki Rob on 34-56-1645Lxrkwp Kuhl91ZCAFTZ [employer] Work Phone: P Eryz80utyirzcGENGiftly Work Phone: [phone]-R Qvqyvdpu404 [employer] Work Phone: [phone]-T Qtyfaqrn526 [employer] Work Phone: [phone] Wzglizbv17 msGreen[employer] Work Phone: QTc Calculation (Bazett)480 msGreenhouse [employer] Work Phone: R Ojoh61pwadbpcVZZGiftly Work Phone: T Begv55vtvnresZKRGiftly Work Phone: Ventricular [id number] [employer] Work Phone: BON [employer] Work Phone: [phone] 12 Leadon 01-69-1553Uqoroz sinus rhythm Low voltage QRS Inferior infarct , age undetermined Abnormal ECG No previous ECGs availableTHOM[facility] Vicki Valencia MD - 11/30/2021 Normal sinus rhythm Low voltage QRS Inferior infarct , age undetermined Abnormal ECG No previous ECGs available [facility] [employer] Work Phone: poc Glucose Fingerstickon 13-46-0441Gyjoadu [Mass/Vol] 160 mg/zFZfze19 - 110 mg/dLBON [employer] StoreInterpretation and review of laboratory resultsAbnormMonmouth Medical Center The African StoreNORTHWEST MEDICAL CENTER [employer] Glucose [Mass/Vol]181 mg/yRUvhw70 - 110 mg/dLBON [employer] Interpretation and review of laboratory resultsAbnormMonmouth Medical Center [employer] [facility]ICAL CENTERGlucose [Mass/Vol]182 mg/zNIuud42 - 110 mg/dLBON KNOX COMM[facility]ITY HOSPITALInterpretation and review of laboratory resultsAbnormalBUCHANAN GENERAL HOSPITALBasic Metabolic Panelon 44-63-5724Lxrvy gap [Moles/Vol]12 mmol/L9 - 17 mmol/LBON KNOX COMMUNITY HOSPITALCalcium [Mass/Vol]8.3 mg/dLLow8.6 - 10.4 mg/dLBON KNOX COMMUNITY HOSPITALChloride [Moles/Vol]101 mmol/L98 - 107 mmol/LBON [facility]NOX COMMUNITY HOSPITALCO2 [Moles/Vol]20 mmol/L20 - 31 mmol/LBON [facility] HOSPITALCreatinine [Mass/Vol]0.89 mg/dL0.7 - 1.2 mg/dLBON KNOX COMMUNITY HOSPITALGFR >6060 - PINF mL/minBON SECOU[facility] DEPAUL MEDICAL CENTERGFR Non->6060 - PINF mL/minBON KNOX COMMUNITY HOSPITALGFR/1.73 sq M.predicted MDRD (S/P/Bld) [Vol rate/Area][facility] DEPAUL MEDICAL CENTERComment on above:Average GFR for 70 or more years old: 75 mL/min/1.73sq m Chronic Kidney Disease: <60 mL/min/1.73sq m Kidney failure: <15 mL/min/1.73sq m eGFR calculated using average adult body mass. Additional eGFR calculator available at: http://www.Jobaline.Miso Media/multiple_crcl_2011.htm Glucose [Mass/Vol]198 mg/zTPlod31 - 99 mg/dLB[facility] Interpretation and review of laboratory resultsAbnormSpotsylvania Regional Medical Center Potassium [Moles/Vol]4.4 mmol/L3.7 - 5.3 mmol/LBON KNOX COMMUNITY HOSPITALSodium [Moles/Vol]133 mmol/WCvv908 - 144 mmol/LBON [facility] COMMUNITY HOSPITALUrea nitrogen (BldV) [Mass/Vol]14 mg/dL8 - 23 mg/dLBON [facility] Centersic Metabolic Profon 11-29-2021(cont.)NormalGrant HospitalComment on above:Result Comment: Average GFR for 70 or more years old: 75 mL/min/1.73sq m Chronic Kidney Disease: <60 mL/min/1.73sq m Kidney failure: <15 mL/min/1.73sq m eGFR calculated using average adult body mass. Additional eGFR calculator available at: http://www.Jobaline.Miso [employer]/multiple_crcl_2012.htmPerformed By: #### DALE MALDONADO, CDP #### [facility] [address] [place] [address] [employer] Cutter [employer] Trimmer: Afshin Mansfield MDAnion gap [Moles/Vol]12 mmol/LNormal9-17Grant HospitalComment on above:Performed By: #### DALE MALDONADO, CDP #### [facility] [address] [place] [address] Screen Cutter And Trimmer: WOODROW Westfallalcium [Mass/Vol]8.3 mg/dLLow8.6-10.4Grant HospitalComment on above:Performed By: #### DALE MALDONADO, CDP #### [facility] [address] [place] [address] Screen Cutter And Trimmer: WOODROW Westfallhloride [Moles/Vol]101 mmol/WIylcyb31-549DnpupGrant HospitalComment on above:Performed By: #### DALE MALDONADO, CDP #### [facility] [address] [place], [place] [address] Screen Cutter And Trimmer: Afshin Mansfield MDCO2 [Moles/Vol]20 mmol/YRuqath40-37NxrrnGrant HospitalComment on above:Performed By: #### DALE MALDONADO, CDP #### [facility] [address] [place] [address] Screen Cutter And Trimmer: WOODROW Westfallreatinine [Mass/Vol]0.89 mg/dLNormal0.70-1.20 Grant HospitalComment on above:Performed By: #### DALE MALDONADO, CDP #### [facility] [address] [place] [address] Screen C[employer] Trimmer: Afshin Mansfield MDGFR, Amer>60Normal>60MerGlenn Medical CenterComment on above:Performed By: #### DALE MALDONADO, CDP #### [facility] [address] [place] [address] Screen Cutter [employer] Trimmer: Afshin Mansfield MDGFR,non Amer>60Normal>60MerGlenn Medical CenterComment on above:Performed By: #### DALE MALDONADO, CDP #### [facility] [address] [place] [address] [employer] Cutter [employer] Trimmer: Afshin Mansfield MDGlucose [Mass/Vol]198 mg/kVHzzz03-22SctqjLanterman Developmental CenterComment on above:Performed By: #### DALE MALDONADO, CDP #### [facility] [address] [place] [address] [employer] Cutter [employer] Trimmer: JOJO Westfallotassium [Moles/Vol]4.4 mmol/LNormal3.7-5.3 Grant HospitalComment on above:Performed By: #### DALE MALDONADO, CDP #### [facility] [address] [place] [address] [employer] Trimmer: KRISTIAN Westfallodium [Moles/Vol]133 mmol/TTqp154-072MfptiGrant HospitalComment on above:Performed By: #### DALE MALDONADO, CDP #### [facility] [address] [place] [address] [employer] Cutter [employer] Trimmer: Afshin Mansfield MDUrea nitrogen [Mass/Vol]14 mg/dLNormal8-23Grant HospitalComment on above:Performed By: #### DALE MALDONADO, CDP #### [facility] [address] [place] [address] [employer] C[employer] Trimmer: Afshin Mansfield, [facility] with Auto Differentialon [id number] Eos #0.00B[facility]Y HEALTHAbsolute Immature Granulocyte0.19[facility]OS[facility]ITALY HEALTHAbsolute Lymph #0.57LowBON [facility]RS [facility]OT MEMORIAL HOSPITALY HEALTHAbsolute Centre #1.33 HighBON [facility] HEALTHBasophils (Bld) [#/Vol]0.00 10*3/uLBON [facility] HEALTHBasophils/100 WBC (Bld)0 %0 - 2 %B[facility] SECFAY[facility] COUNTY [facility]IAL HOSPITALEosinophils/100 WBC (Bld)0 %Low1 - 4 %B[facility] HOSPITALHematocrit (Bld) [Volume fraction] 40.4 %Low40.7 - 50.3 %[facility] HOSPITALHemoglobin (Bld) [Mass/Vol]13.6 g/dL13 - 17 g/dLBON SECFAYET[facility] COUNTY [facility] HOSPITALImmature granulocytes/100 WBC (Bld)1 % Bxlc3CJV [facility] HEALTHInterpretation and review of laboratory results AbnormalBON SECFAYETTE COUNTY MEMORIAL HOSPITALLymphocytes/100 WBC (Bld)3 %Low24 - 43 %BON [facility] CENTERH (RBC) [Entitic mass]30.5 pg25.2 - 33.5 pgBON SECMERCY HEALTH PERRYSBURG HOSPITALHC (RBC) [Mass/Vol]33.7 g/dL28.4 - 34.8 g/dLBON SECMERCY HEALTH PERRYSBURG HOSPITALV (RBC) [Entitic vol]90.6 fL82.6 - 102.9 fLBON [facility]OURS [facility] Monocytes/100 WBC (Bld)7 %3 - 12 %BON SECFAY[facility] HOSPITALMorphology Callum (Bld) [Interp]NormalBON SECFAYETTE COUNTY MEMORIAL HOSPITALNRBC Automated0.00.0 per 100 WBCBON SECNORTHERN STATE HOSPITALY HEALTHPlatelet distribution width (Bld) [Ratio]13.7 %11.8 - 14.4 % BON SECNORTHERN STATE HOSPITALY HEALTHPlatelet mean volume (Bld) [Entitic vol]9.9 fL8.1 - 13.5 fLBON [facility] HEALTHPlatelets (Bld) [#/Vol]250 10*3/uLBON [facility]CY HEALTHRBC (Bld) [#/Vol]4.46 10*6/uL4.21 - 5.77 m/uLBON [facility] Segmented neutrophils/100 WBC (Bld)89 %High36 - 65 %BON [facility] COMM[facility] HOSPITALSegs Xkyfqyey01.91HighBON KNOX COMMUNITY HOSPITALWBC (Bld) [#/Vol]19.0 10*3/uLHighBON K[facility]X COMM[facility]ITY HOSPITALBON K[facility]X COMM[facility] HOSPITALCBC with Diffon [id number]. Basophil0.00 k/uLNormal0.00-0.20Grant HospitalComment on above:Performed By: #### DALE MALDONADO, CDP #### [employer] [address] [place] [address] [employer] C[employer] Trimmer: Virgil Westfall.Imm.Granulocyte0.19 k/uLNormal0.00-0.30Grant HospitalComment on above:Performed By: #### DALE MALDONADO, CDP #### [facility] [address] [place] [address] Screen Cutter And Trimmer: Virgil Westfall.Neutrophil (Seg)16.91 k/uLHigh1.50-8.10Grant HospitalComment on above:Performed By: #### DALE MALDONADO, CDP #### [facility] [address] [place] [address] Screen Cutter And Trimmer: Afshin Mansfield MDBasophils/100 WBC (Bld)0 %Normal0-2MercCommunity Memorial Hospital of San BuenaventuraComment on above:Performed By: #### DALE MALDONADO, CDP #### [facility] [address] [place] [address] [employer] Cutter And Trimmer: Afshin Mansfield MDEosinophils (Bld) [#/Vol]0.00 10*3/uLNormal 0.00-0.44Grant HospitalComment on above:Performed By: #### IOCAL, BMP, CDP #### [facility] [address] [place] [address] Screen Cutter And Trimmer: Afshin Mansfield MDEosinophils/100 WBC (Bld)0 %Low1-4Grant HospitalComment on above:Performed By: #### JOEL BMP, CDP #### [facility] [address] [place] [address] [employer] Cutter [employer] Trimmer: Afshin Mansfield MDImmature granulocytes/100 WBC (Bld)1 %Svit6HosjmGrant HospitalComment on above:Performed By: #### DALE MALDONADO, CDP #### [facility] [address] [place] [address] [employer] Cutter [employer] Trimmer: Afshin Mansfield MDLymphocytes (Bld) [#/Vol]0.57 10*3/uLLow 1.10-3.70Grant HospitalComment on above:Performed By: #### DALE MALDONADO, CDP #### [facility] [address] [place] [address] [employer] Cutter [employer] Trimmer: Afshin Mansfield MDLymphocytes/100 WBC (Bld)3 %Rlk91-57DemotGrant HospitalComment on above:Performed By: #### DALE MALDONADO, CDP #### [facility] [address] [place] [address] Screen Cutter [employer] Trimmer: BRITTANY Westfallonocytes (Bld) [#/Vol]1.33 10*3/uLHigh0.10-1.20 Grant HospitalComment on above:Performed By: #### DALE MALDONADO, CDP #### [facility] [address] [place] [address] [employer] Cutter [employer] Trimmer: Afshin Mansfield MDMonocytes/100 WBC (Bld)7 %Normal3-12Grant HospitalComment on above:Performed By: #### IOCAL, BMP, CDP #### [facility] [address] [place] [address] Screen Cutter [employer] Trimmer: BRITTANY Westfallorphology Callum (Bld) [Interp]NormalNormalGrant HospitalComment on above:Performed By: #### DALE MALDONADO, CDP #### [facility] [address] [place] [address] Screen Cutter [employer] Trimmer: Afshin Mansfield MDNeutrophil (Seg)89 %Zywi56-85EbfbsGrant HospitalComment on above:Performed By: #### DALE MALDONADO, CDP #### [facility] [address] [place] [address] Screen Cutter [employer] Trimmer: Afshin Mansfield MDErythrocyte distribution width (RBC) [Ratio]13.7 %Zgyirg89.8-14.4Grant HospitalComment on above:Performed By: #### DALE MALDONADO, CDP #### [facility] [address] [place] [address] Screen Cutter And Trimmer: Afshin Mansfield MDHematocrit (Bld) [Volume fraction]40.4 %Low 40.7-50.3MLanterman Developmental CenterComment on above:Performed By: #### DALE MALDONADO, CDP #### [facility] [address] [place] [address] Screen Cutter [employer] Trimmer: Afshin Mansfield MDHemoglobin (Bld) [Mass/Vol]13.6 g/dLNormal 13.0-17.0Grant HospitalComment on above:Performed By: #### DALE MALDONADO, CDP #### [facility] [address] [place] [address] Screen Cutter And Trimmer: BRITTANY WestfallCH (RBC) [Entitic mass]30.5 yaOfrbav56.2-33.5 Grant HospitalComment on above:Performed By: #### DALE MALDONADO, CDP #### [facility] [address] [place] [address] Screen Cutter And Trimmer: BRITTANY WestfallCHC (RBC) [Mass/Vol]33.7 g/sNGzorvc65.4-34.8 Grant HospitalComment on above:Performed By: #### DALE MALDONADO, CDP #### [facility] [address] [place] [address] Screen Cutter And Trimmer: BRITTANY WestfallCV (RBC) [Entitic vol]90.6 gQXcextm92.6-102.9 Grant HospitalComment on above:Performed By: #### DALE MALDONADO, CDP #### [facility] [address] [place] [address] Screen Cutter And Trimmer: Afshin Mansfield MDNRBC Automated0.0 per 100 WBCNormal0.0Grant HospitalComment on above:Performed By: #### DALE MALDONADO, CDP #### [facility] [address] [place] [address] Screen Cutter And Trimmer: Ban Westfallteflor mean volume (Bld) [Entitic vol]9.9 fL Normal8.1-13.5Grant HospitalComment on above:Performed By: #### DALE MALDONADO, CDP #### [facility] [address] [place] [address] Screen Cutter [employer] Trimmer: Ban Westfalltemelissa (Bld) [#/Vol]250 10*3/sQFpzlgg142-996 Grant HospitalComment on above:Performed By: #### DALE MALDONADO, CDP #### [facility] [address] [place] [address] Screen Cutter And Trimmer: Afshin Mansfield MDRBC (Bld) [#/Vol]4.46 10*6/uLNormal4.21-5.77 Grant HospitalComment on above:Performed By: #### DALE MALDONADO, CDP #### [facility] [address] [place] [address] Screen Cutter And Trimmer: Afshin Mansfield MDCATSKILL REGIONAL MEDICAL [facility]ENTER ([facility]) [#/Vol]19.0 10*3/uLHigh3.5-11.3[facility] Medical CenterComment on above:Performed By: #### DALE MALDONADO CDP #### [facility] [address] [place] [address] Screen Cutter And Trimmer: Afshin Mansfield MDCT HEAD WO CONTRASTon [id number] HEAD WO CONTRASTEXAMINATION: CT OF THE HEAD [...] Signed by: Anders Shepard MD 11/29/21 Final resultNormalMercy Lanterman Developmental Centerimilar 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 Similar punctate focus of presumed hemorrhage. [facility] RIS CONSOLIDATEDEXAMINATION: CT OF THE HEAD WITHOUT CONTRAST [...] of the visualized skull or soft tissues. Anders Steve MD - 11/29/2021 EXAMINATION: CT OF THE [...] shift. Similar punctate focus of presumed hemorrhage. [facility] [employer] Work Phone: bON Kids NoteNORTHERN STATE HOSPITALY HEALTH Work Phone: radiology Study observation (narrative)[facility] Work Phone: calcium, Ionicon [id number] [Moles/Vol]1.07 mmol/LLow1.13-1.33[facility] Medical CenterComment on above:Performed By: #### DALE MALDONADO, CDP #### [facility] [address] [place] [address] Screen Cutter And Trimmer: WOODROW Westfallalcium, Ionizedon 98-66-7033Uhfhzra, Ionized 1.07 mmol/LLow1.13 - 1.33 mmol/LBON KNOX COMMUNITY HOSPITALInterpretation and review of laboratory resultsAbnormalBUCHANAN GENERAL HOSPITALMagnesiumon 85-71-9699Hkyqrppqx [Mass/Vol]2.6 mg/dLNormal1.6-2.6[facility] Medical CenterComment on above:Performed By: #### DALE MALDONADO, CDP #### [facility] [address] [place] [address] Screen Cutter And Trimmer: Afshin Mansfield MDMagnesium [Mass/Vol]2.6 mg/dL1.6 - 2.6 mg/dLBON MARSHALL COUNTY HEALTHCARE CENTERPOC Glucose Fingerstickon 11-29-2021 Glucose [Mass/Vol]199 mg/bDOlmj57 - 110 mg/dLBON [facility]NOX [facility] Interpretation and review of laboratory resultsAbnormInova Children's HospitalGlucose [Mass/Vol]211 mg/tKPhcb18 - 110 mg/dLBON KNOX COMMUNITY HOSPITALInterpretation and review of laboratory resultsAbnormalBUCHANAN GENERAL HOSPITALGlucose [Mass/Vol]213 mg/yPYrcz93 - 110 mg/dLBON KNOX COMMUNITY HOSPITALInterpretation and review of laboratory results AbnormalBON MARSHALL COUNTY HEALTHCARE CENTERGlucose [Mass/Vol]195 mg/qDIekz15 - 110 mg/dLBON KNOX COMMUNITY HOSPITALInterpretation and review of laboratory resultsAbnormalBON SECOURS MERCY HEALTHB[facility]ALTH Glucose [Mass/Vol]205 mg/gXOsaq14 - 110 mg/dLB[facility] Interpretation and review of laboratory resultsAbnormSpotsylvania Regional Medical Center B[facility] HOSPITALBasic Metabolic Profon 11-28-2021(cont.)NormalGrant HospitalComment on above:Result Comment: Average GFR for 70 or more years old: 75 mL/min/1.73sq m Chronic Kidney Disease: <60 mL/min/1.73sq m Kidney failure: <15 mL/min/1.73sq m eGFR calculated using average adult body mass. Additional eGFR calculator available at: http://www.[employer] (V3D)/multiple_crcl_2012.htmPerformed By: #### CBC, GLYHGB, BMP #### [facility] [address] [place] [address] [phone] Screen Cutter [employer] Trimmer: Afshin Mansfield MDAnion gap [Moles/Vol]15 mmol/LNormal9-17Grant HospitalComment on above:Performed By: #### MARIUSZ, GLYHGB, BMP #### [facility] [address] [place] [address] Screen Cutter And Trimmer: Afshin Mansfield MDCalcium [Mass/Vol]8.1 mg/dLLow8.6-10.4Grant HospitalComment on above:Performed By: #### CBC, GLYHGB, BMP #### [facility] [address] [place] [address] Screen Cutter And Trimmer: Afshin Mansfield MDChloride [Moles/Vol]95 mmol/KFon93-748VsokrGrant HospitalComment on above:Performed By: #### MARIUSZ, GLYHGB, BMP #### [facility] [address] [place] [address] [phone] Screen Cutter [employer] Trimmer: Afshin Mansfield MDCO2 [Moles/Vol]21 mmol/LIzkrrc73-83AxukaGrant HospitalComment on above:Performed By: #### CBC, GLYHGB, BMP #### [facility] [address] [place] [address] Screen Cutter And Trimmer: WOODROW Westfallreatinine [Mass/Vol]0.94 mg/dLNormal0.70-1.20 Grant HospitalComment on above:Performed By: #### CBC, GLYHGB, BMP #### [facility] [address] [place] [address] Screen Cutter And Trimmer: Afshin Mansfield MDGFR, Amer>60Normal>60[facility] Medical CenterComment on above:Performed By: #### MARIUSZ, GLYHGB, BMP #### [facility] [address] [place] [address] Screen Cutter [employer] Trimmer: Afshin Mansfield MDGFR,non Amer>60Normal>60[facility] Medical CenterComment on above:Performed By: #### CBC, GLYHGB, BMP #### [facility] [address] [place] [address] Screen Cutter And Trimmer: Afshin Mansfield MDGlucose [Mass/Vol]230 mg/mLXosx80-72Trrob Glenn Medical CenterComment on above:Performed By: #### CBC, GLYHGB, BMP #### [facility] [address] [place] [address] Screen Cutter And Trimmer: Afshin Mansfield MDPotassium [Moles/Vol]4.2 mmol/LNormal3.7-5.3 Grant HospitalComment on above:Performed By: #### CBC, GLYHGB, BMP #### [facility] [address] [place] [address] Screen Cutter And Trimmer: Afshin Mansfield MDSodium [Moles/Vol]131 mmol/GLtk585-100XnvpeGrant HospitalComment on above:Performed By: #### CBC, GLYHGB, BMP #### [facility] [address] [place], [place] [phone] Screen Cutter And Trimmer: Afshin Mansfield MDUrea nitrogen [Mass/Vol]10 mg/dLNormal8-23Grant HospitalComment on above:Performed By: #### MARIUSZ, GLYHGLakshmi, BMP #### [facility] [address] [place], [place] [phone] Screen Cutter And Trimmer: Afshin Mansfield MDBasic metabolic panelon [id number] gap [Moles/Vol]15 mmol/L9 - 17 mmol/LBON SECEntasso MERCY HEALTHCalcium [Mass/Vol]8.1 mg/dLLow8.6 - 10.4 mg/dLBON SECOURS MERCY HEALTHChloride [Moles/Vol]95 mmol/LLow 98 - 107 mmol/LBON SECOURS VenJuvo HEALTHCO2 [Moles/Vol]21 mmol/L20 - 31 mmol/LBON SECFioCreatinine [Mass/Vol]0.94 mg/dL0.7 - 1.2 mg/dLBON SECOURS SalesfusionY HEALTHGFR >6060 - PINF mL/minBON SECVestmarkY HEALTHGFR Non->6060 - PINF mL/minBON SECVestmarkY HEALTHGFR/1.73 sq M.predicted MDRD (S/P/Bld) [Vol rate/Area]BON SECFioComment on above:Average GFR for 70 or more years old: 75 mL/min/1.73sq m Chronic Kidney Disease: <60 mL/min/1.73sq m Kidney failure: <15 mL/min/1.73sq m eGFR calculated using average adult body mass. Additional eGFR calculator available at: http://www.Jobaline.com/multiple_crcl_2011.htm Glucose [Mass/Vol]230 mg/uRHcgs45 - 99 mg/dLBON SECFio Interpretation and review of laboratory resultsAbnormalBON SECFio Potassium [Moles/Vol]4.2 mmol/L3.7 - 5.3 mmol/LBON SECVestmarkY HEALTHSodium [Moles/Vol]131 mmol/XJsa420 - 144 mmol/LBON KNOX COMMUNITY HOSPITALUrea nitrogen (BldV) [Mass/Vol]10 mg/dL8 - 23 mg/dLBON MARSHALL COUNTY HEALTHCARE CENTERC-Reactive Proteinon [id number] [Mass/Vol]13.7 mg/LHigh0.0-5.0Grant HospitalComment on above:Performed By: #### DALE MALDONADO, CDP #### [facility] [address] [place] [address] [phone] Screen Cutter And Trimmer: Afshin Mansfield MDCRP [Mass/Vol]13.7 mg/LHigh0 - 5 mg/LBON KNOX COMMUNITY HOSPITALInterpretation and review of laboratory resultsAbnormalBUCHANAN GENERAL HOSPITALCBCon [id number] distribution width (RBC) [Ratio]13.6 %Spjsbo54.8-14.4Grant HospitalComment on above:Performed By: #### CBC GLYHGB BMP #### [facility] [address] [place] [address] [phone] Screen Cutter And Trimmer: Afshin Mansfield MDHematocrit (Bld) [Volume fraction]40.1 %Low 40.7-50.3MLanterman Developmental CenterComment on above:Performed By: #### MARIUSZ GLYHGB, BMP #### [facility] [address] [place] [address] [phone] Screen Cutter And Trimmer: Afshin Mansfield MDHemoglobin (Bld) [Mass/Vol]13.9 g/dLNormal 13.0-17.0Grant HospitalComment on above:Performed By: #### CBC, GLYHGB, BMP #### [facility] [address] [place] [address] [phone] Screen Cutter And Trimmer: BRITTANY WestfallCH (RBC) [Entitic mass]30.2 zcDgauio05.2-33.5 Grant HospitalComment on above:Performed By: #### CBC, GLYHGB, BMP #### [facility] [place] [address] Screen Cutter And Trimmer: BRITTNAY WestfallCHC (RBC) [Mass/Vol]34.7 g/mLEgyxaw62.4-34.8 Grant HospitalComment on above:Performed By: #### CBC, GLYHGB, BMP #### [address] [address] Screen Cutter And Trimmer: BRITTANY WestfallCV (RBC) [Entitic vol]87.0 zGOkmkvx59.6-102.9 Grant HospitalComment on above:Performed By: #### CBC, GLYHGB, BMP #### [address] [address] Screen Cutter And Trimmer: Afshin Mansfield MDNRBC Automated0.0 per 100 WBCNormal0.0Grant HospitalComment on above:Performed By: #### CBC, GLYHGB, BMP #### [address] [address] Screen Cutter And Trimmer: JOJO Westfalllatelet mean volume (Bld) [Entitic vol]10.1 fL Normal8.1-13.5Grant HospitalComment on above:Performed By: #### CBC, GLYHGB, BMP #### [address] [address] Screen Cutter And Trimmer: JOJO Westfalllatelets (Bld) [#/Vol]222 10*3/rKRhfvro285-353 Grant HospitalComment on above:Performed By: #### CBC, GLYHGB, BMP #### [facility] [address] [place] [address] Screen Cutter And Trimmer: Afshin Mansfield MDRBC (Bld) [#/Vol]4.61 10*6/uLNormal4.21-5.77 Grant HospitalComment on above:Performed By: #### CBC, GLYHGB, BMP #### [facility] [address] [place], [place] [phone] Screen Cutter And Trimmer: Afshin Mansfield MDWBC (Bld) [#/Vol]13.5 10*3/uLHigh3.5-11.3[facility] Glenn Medical CenterComment on above:Performed By: #### CBC, GLYHGB, BMP #### [facility] [address] [place], [place] [phone] Screen Cutter And Trimmer: Afshin Mansfield MDHematocrit (Bld) [Volume fraction]40.1 %Low40.7 - 50.3 %[facility]UL MEDICAL CENTERHemoglobin (Bld) [Mass/Vol]13.9 g/dL13 - 17 g/dL [facility] MEDICAL CENTERInterpretation and review of laboratory resultsAbnormal [facility] CENTERH (RBC) [Entitic mass]30.2 pg25.2 - 33.5 pgBON SYCAMORE MEDICAL CENTERHC (RBC) [Mass/Vol]34.7 g/dL28.4 - 34.8 g/dLBON SYCAMORE MEDICAL CENTERV (RBC) [Entitic vol]87.0 fL82.6 - 102.9 fLBON SECOURS DEPAUL MEDICAL CENTERNRBC Automated0.00.0 per 100 WBCBON KNOX COMMUNITY HOSPITALPlatelet distribution width (Bld) [Ratio]13.6 %11.8 - 14.4 %[facility] K[facility] COMMUNITY HOSPITALPlatelet mean volume (Bld) [Entitic vol]10.1 fL8.1 - 13.5 fLSENTARA VIRGINIA BEACH GENERAL [facility]ITAL HEALTHPlatelets (Bld) [#/Vol]222 10*3/uLBON KNOX COMMUNITY HOSPITALRBC (Bld) [#/Vol]4.61 10*6/uL4.21 - 5.77 m/uLBON KNOX COMMUNITY HOSPITALWBC (Bld) [#/Vol]13.5 10*3/uLHighBON SECFAYETTE COUNTY MEMORIAL HOSPITALBON KNOX COMMUNITY HOSPITALCBC AUTO DIFFon [id number] #0.0 103/ul Normal0.0-0.1The [facility] Avon HospitalComment on above:Performed By: #### HSTROPN, CMP, CRP #### [facility] [address] [place] [address] Dr. Sea PughBasophils/100 WBC (Bld)0.3 %Normal0.2-2.0[facility] Comment on above:Performed By: #### HSTROPN, CMP, CRP #### [facility] [address] [place] [address] Dr. Osei ChangEO #0.1 103/ulNormal0.0-0.7The [facility]Point Medical Centerment on above: Performed By: #### HSTROPN, CMP, CRP #### [facility] [address] [place] [address] Dr. Sea Fordosinophils/100 WBC (Bld)0.8 %Critically low0.9-7.0The [facility] TriPoint Medical Centerment on above:Performed By: #### HSTROPN, CMP, CRP #### [facility] [address] [place] [address] Dr. Sea Fordrythrocyte distribution width (RBC) [Ratio]13.6 %Hwuiof15.0-15.0 [facility] HospitalComment on above:Performed By: #### HSTROPN, CMP, CRP #### [facility] [address] [place] [address] Dr. Sea PughHematocrit (Bld) [Volume fraction]41.0 %Critically low42.0-54.0 The [facility] TriPoint Medical Centerment on above:Performed By: #### HSTROPN, CMP, CRP #### [facility] [address] [place] [address] Dr. Sea PughHemoglobin (Bld) [Mass/Vol]14.0 g/mBVfdpma74.0-18.0The [facility] Medical Centerment on above:Performed By: #### HSTROPN, CMP, CRP #### [facility] [address] [place] [address] Dr. Sea PughIG #0.04 10e3/ulCritically high0.00-0.03[facility] Comment on above:Performed By: #### HSTROPN, CMP, CRP #### [facility] [address] [address] [address] Sea Anguiano %0.3 %Normal0.0-0.5The [facility] HospitalComment on above: Performed By: #### HSTROPN, CMP, CRP #### [facility] [address] [address] [address] Sea Galeano #1.2 103/ulNormal1.2-3.8The [facility] HospitalComment on above:Performed By: #### HSTROPN, CMP, CRP #### [facility] [address] [place] [address] Dr. Sea Hoffmanhocytes/100 WBC (Bld)9.7 %Critically low20.5-60.0The [facility] HospitalComment on above:Performed By: #### HSTROPN, CMP, CRP #### [facility] [address] [place] [address] Dr. Sea SoniUAL DIFF REQNONormalThe [facility] HospitalComment on above: Performed By: #### HSTROPN, CMP, CRP #### [facility] [address] [place] [address] Dr. Sea Steele (RBC) [Entitic mass]29.9 jvXkvhnj74.9-34.0The [facility] HospitalComment on above:Performed By: #### HSTROPN, CMP, CRP #### [facility] [address] [place] [address] Dr. Sea Steele (RBC) [Mass/Vol]34.1 g/qAPwhezw30.9-35.2The [facility] HospitalComment on above:Performed By: #### HSTROPN, CMP, CRP #### [facility] [address] [place] [address] Dr. Sea Steele (RBC) [Entitic vol]87.6 xVHnrwyt72.0-94.0The [facility] HospitalComment on above:Performed By: #### HSTROPN, CMP, CRP #### [facility] [address] [address] [address] Sea Rain #0.9 103/ulCritically high0.3-0.8[facility] Comment on above:Performed By: #### HSTROPN, CMP, CRP #### [facility] [address] [place] [address] Dr. Sea Bansalocytes/100 WBC (Bld)7.4 %Normal1.7-12.0[facility] Comment on above:Performed By: #### HSTROPN, CMP, CRP #### [facility] [address] [place] [address] Dr. Sea Zapata #10.3 103/ulCritically high1.4-6.5[facility] Comment on above:Performed By: #### HSTROPN, CMP, CRP #### [facility] [address] [place] [address] Dr. Sea Valentineutrophils/100 WBC (Bld)81.5 %Critically high43.0-75.0The [facility] HospitalComment on above:Performed By: #### HSTROPN, CMP, CRP #### [facility] [address] [place] [address] Dr. Sea Caldwell mean volume (Bld) [Entitic vol]9.8 fLNormal9.5-13.5The [facility] HospitalComment on above:Performed By: #### HSTROPN, CMP, CRP #### [facility] [address] [place] [address] Dr. Sea PughPLT247 103/jeHskzeq270-046Esg [facility] HospitalComment on above: Performed By: #### HSTROPN, CMP, CRP #### [facility] [address] [place] [address] Dr. Sea PughRBC4.68 106/ulCritically low4.70-6.10The [facility] HospitalComment on above:Performed By: #### HSTROPN, CMP, CRP #### [facility] [address] [place], [place] [address] Dr. Sea PughWBC12.6 103/ulCritically high4.0-11.0The [facility] HospitalComment on above:Performed By: #### HSTROPN, CMP, CRP #### [facility] [address] [place], [place] [address] Dr. Sea Robbins 76-91-5168NBF7.3 mg/dLNormal<=1.0[facility] Comment on above:Performed By: #### HSTROPN, CMP, CRP #### [facility] [address] [address] [address] Sea PughCT HEAD WO CONon [id number] HEAD WO CONEXAMINATION: CT HEAD WO CON [...] Electronically authenticated by: VICENTA MARCH Date: 2021-11-28 00:11[facility] HEAD WO CONTRASTon [id number] HEAD WO CONTRASTEXAMINATION: CT OF THE HEAD [...] Signed by: Adalberto Escobar MD 11/28/21 Final resultNoWayne HospitalRadiology Study observation (narrative)[facility] HEALTHDanforth [employer] Work Phone: cta HEAD NECK W CONTRASTon 20-10-0719IVC HEAD NECK W CONTRASTEXAMINATION: CT OF THE [...] Signed by: Adalberto Escobar MD 11/28/21 Final resultNormalGrant HospitalCTA head neck with contraston [id number] Study observation (narrative)[facility] [employer] Work Phone: Hemoglobin A1Con 16-23-1809Mkwyreq [Mass/Vol]186 mg/dL NormalGrant HospitalComment on above:Result Comment: The ADA and AACC recommend providing the estimated average glucose result to permit better patient understanding of their HBA1c result.Performed By: #### CBC, GLYHGB, BMP #### [facility] [address] [place], [place] [phone] Screen Cutter [employer] Trimmer: Afshin Mansfield MDHbA1c (Bld) [Mass fraction]8.1 %High4.0-6.0Grant HospitalComment on above:Performed By: #### CBC, GLYHGB, BMP #### [facility] [address] [place], [place] [id number] Screen Cutter [employer] Trimmer: Afshin Mansfield MDHemoglobin A1con [id number] [Mass/Vol]186 mg/dLBON KNOX COMMUNITY HOSPITALComment on above:The ADA and AACC recommend providing the estimated average glucose result to permit better patient understanding of their HBA1c result. HbA1c (Bld) [Mass fraction]8.1 %High4 - 6 %[facility] HOSPITALVestmark [employer] Interpretation and review of laboratory resultsAbnormalCHESAPEAKE REGIONAL MEDICAL CENTERLACTATE/LACTIC ACIDon [id number] [Moles/Vol]1.7 mmol/LNormal0.4-1.9[facility] Medical CenterComment on above:Performed By: #### DDIM #### [facility] [address] [place] [address] Dr. Sea PughLipid Panelon [id number] [Mass/Vol]122 mg/dLNINF - 200 mg/dLBON KNOX COMMUNITY HOSPITALComment on above: Cholesterol Guidelines: <200 Desirable 200-240 Borderline >240 Undesirable Cholesterol in HDL [Mass/Vol]34 mg/dLLow40 - PINF mg/dLB[facility] [employer] Comment on above: HDL Guidelines: <40 Undesirable 40-59 Borderline >59 Desirable Cholesterol in LDL [Mass/Vol]74 mg/dL0 - 130 mg/dLBON [facility] [employer] Comment on above: LDL Guidelines: <100 Desirable 100-129 Near to/above Desirable 130-159 Borderline >159 Undesirable Direct (measured) LDL and calculated LDL are not interchangeable tests. Cholesterol.total/Cholesterol in HDL [Mass ratio]3.6 {ratio}NINF - 5B[facility] SAN [place] Guerrilla RFInterpretation and review of laboratory resultsAbnormalBON KENTFIELD [facility]PITAL [place] Guerrilla RFTriglyceride [Mass/Vol]71 mg/dLNINF - 150 mg/dLBON KNOX COMMUNITY HOSPITALComment on above: Triglyceride Guidelines: <150 Desirable 150-199 Borderline 200-499 High >499 Very high Based on AHA Guidelines for fasting triglyceride, December 2011. [facility] [place] Guerrilla RFLipid Profileon 52-10-2479Btuhzqvulns [Mass/Vol]122 mg/dLNormal<200Grant HospitalComment on above:Result Comment: Cholesterol Guidelines: <200 Desirable 200-240 Borderline >240 UndesirablePerformed By: #### DALE MALDONADO, CDP #### [employer] [address] [place] [address] Screen Cutter And Trimmer: WOODROW Westfallholesterol in HDL [Mass/Vol]34 mg/dLLow>40Grant HospitalComment on above:Result Comment: HDL Guidelines: <40 Undesirable 40-59 Borderline >59 DesirablePerformed By: #### DALE MALDONADO, CDP #### [employer] [address] [place], [place] [id number] [employer] Cutter [employer] Trimmer: WOODROW Westfallholesterol in LDL [Mass/Vol]74 mg/dLNormal0-130 Grant HospitalComment on above:Result Comment: LDL Guidelines: <100 Desirable 100-129 Near to/above Desirable 130-159 Borderline >159 Undesirable Direct (measured) LDL and calculated LDL are not interchangeable tests.Performed By: #### IODALE HARGROVE, CDP #### [employer] [address] [place], [place] [id number] [employer]utter [employer] Trimmer: WOODROW Westfallholesterol.total/Cholesterol in HDL [Mass ratio]3.6 {ratio}Normal<5Mercy Glenn Medical CenterComment on above: Performed By: #### DALE MALDONADO, CDP #### [employer] [address] [place], [place] [id number] [employer]utter [employer] Trimmer: Afshin Mansfield MDTriglyceride [Mass/Vol]71 mg/dLNormal<150Mercy Glenn Medical CenterComment on above:Result Comment: Triglyceride Guidelines: <150 Desirable 150-199 Borderline 200-499 High >499 Very high Based on AHA Guidelines for fasting triglyceride, December 2011.Performed By: #### DALE MALDONADO, CDP #### [employer] [address] [place], [place] [id number] [employer]utter [employer] Trimmer: BRITTANY WestfallRI BRAIN W WO CONTRASTon 30-87-4815BKI BRAIN W WO CONTRASTEXAMINATION: MRI OF THE [...] by: Anders Shepard MD 11/28/21 Final resultNormalMercy Lanterman Developmental Centerubacute ischemia involving the right parietal/temporal lobe with associated hemorrhagic/hemosiderin staining. There is mild associated edema, mass effect, and minimal leftward midline shift. [facility] CONSOLIDATEDEXAMINATION: MRI OF THE BRAIN WITHOUT AND [...] The soft tissues demonstrate no acute abnormality. [facility] Anders Ariza MD - 11/28/2021 EXAMINATION: MRI OF THE [...] mass effect, and minimal leftward midline shift. [employer]: radiology Study observation (narrative)[employer]: MRI BRAIN W WO CONTRASTOrdered By: Anders Shepard on [id number] Phone: Magnesiumon 56-98-9363Fnwymjqiv [Mass/Vol]1.5 mg/dLLow 1.6-2.6Mer[facility] Glenn Medical CenterComment on above:Performed By: #### JOEL, BMP, CDP #### [employer] [address] [place] [address] [employer] Trimmer: Afshin Mansfield MDInterpretation and review of laboratory results AbnormalNOR[facility]WEST [facility]ENTER The African StoreMagnesium [Mass/Vol]1.5 mg/dLLow1.6 - 2.6 mg/dL [facility]SS[facility] Panel Informationon . Findings appear most consistent [...] to Dr. Velázquez on 11/28/2021 at 06:40. [facility] RIS CONSOLIDATEDEXAMINATION: CT OF THE HEAD [...] venous sinus thrombosis on this non-dedicated study. [facility] Adalberto Green MD - 11/28/2021 EXAMINATION: [...] to Dr. Velázquez on 11/28/2021 at 06:40. [facility] [employer] Work Phone: No Panel InformationOrdered By: Adalberto Escobar on [id number] BAN[facility] CASA GRANDE MEDICAL CENTERFio Work Phone: POC Glucose Fingerstickon 28-06-4638Frpzvhq [Mass/Vol] 223 mg/kWSldq07 - 110 mg/dLBON The African StoreInterpretation and review of laboratory resultsAbnormalBON [facility] Glucose [Mass/Vol]242 mg/lSAokz74 - 110 mg/dLBON [facility]X [facility] Interpretation and review of laboratory resultsAbnormalCHESAPEAKE REGIONAL MEDICAL CENTERGlucose [Mass/Vol]262 mg/vWZgar96 - 110 mg/dLBON KNOX COMMUNITY HOSPITALInterpretation and review of laboratory resultsAbnormalBUCHANAN GENERAL HOSPITALGlucose [Mass/Vol]317 mg/dZPexb52 - 110 mg/dLBON KNOX COMMUNITY HOSPITALInterpretation and review of laboratory results AbnormalBON MARSHALL COUNTY HEALTHCARE CENTERPROF 14(COMP METB)on 74-07-3447Rjfhjfi [Mass/Vol]3.7 g/dLNormal3.4-5.0The [facility] HospitalComment on above:Performed By: #### HSTROPN, CMP, CRP #### [facility] [address] [address] [address] Sea PughAlbumin/Globulin [Mass ratio]0.9 {ratio}NormalThe [facility] HospitalComment on above:Performed By: #### HSTROPN, CMP, CRP #### [facility] [address] [address] [address] Sea Cavanaugh [Catalytic activity/Vol]150 U/LCritically brxq07-394Bpl [facility] HospitalComtrinity health [place] on above:Performed By: #### HSTROPN, CMP, CRP #### [facility] [address] [address] [address] Sea Meraz [Catalytic activity/Vol]23 U/AQamhkg81-00Xwq [facility] Medical Centerment on above:Performed By: #### HSTROPN, CMP, CRP #### [facility] [address] [address] [address] Sea Greene gap [Moles/Vol]9.8 mmol/LNormalThe [facility] HospitalComtrinity health livonia on above:Performed By: #### HSTROPN, CMP, CRP #### [facility] [address] [address] [address] Sea Erazo [Catalytic activity/Vol]20 U/YDqvgcf52-86Twm [facility] HospitalComment on above:Performed By: #### HSTROPN, CMP, CRP #### [facility] [address] [address] [address] Sea PughBilirubin [Mass/Vol]1.2 mg/dLCritically high0.2-1.0The [facility] HospitalComment on above:Performed By: #### HSTROPN, CMP, CRP #### [facility] [address] [address] [address] Sea PughCalcium [Mass/Vol]8.5 mg/dLNormal8.5-10.1The [facility] Comment on above:Performed By: #### HSTROPN, CMP, CRP #### [facility] [address] [address] [address] Sea PughChloride [Moles/Vol]100 mmol/WPqalwn72-937RvhKettering Health Behavioral Medical Center Comment on above:Performed By: #### HSTROPN, CMP, CRP #### [facility] [address] [address] [address] Sea PughCO2 [Moles/Vol]26.8 mmol/NVktzig65.0-32.0[facility] Comment on above:Performed By: #### HSTROPN, CMP, CRP #### [facility] [address] [address] [address] Sea PughCreatinine [Mass/Vol]1.21 mg/dLNormal0.70-1.30The [facility] HospitalComment on above:Performed By: #### HSTROPN, CMP, CRP #### [facility] [address] [address] [address] Osei ChangEGFR-AF NEW ZEALANDER>60Normal>=60The [facility] HospitalComment on above:Performed By: #### HSTROPN, CMP, CRP #### [facility] [address] [address] [address] Sea FordGFR-NON AF BCOFFSHY22 mL/min/1.49f8Azjybhirdy low>=60The [facility] HospitalComment on above:Performed By: #### HSTROPN, CMP, CRP #### [facility] [address] [address] [address] Sea PughGlobulin (S) [Mass/Vol]3.9 g/dLNormWhite HospitalComment on above:Performed By: #### HSTROPN, CMP, CRP #### [facility] [address] [address] [address] Sea PughGlucose [Mass/Vol]165 mg/dLCritically jjot32-805Yfa [facility] HospitalComment on above:Performed By: #### HSTROPN, CMP, CRP #### [facility] [address] [address] [address] Sea PughPotassium [Moles/Vol]3.6 mmol/LNormal3.5-5.1The [facility] Comment on above:Performed By: #### HSTROPN, CMP, CRP #### [facility] [address] [address] [address] Sea PughProtein [Mass/Vol]7.6 g/dLNormal6.4-8.2The [facility] Comment on above:Performed By: #### HSTROPN, CMP, CRP #### [facility] [address] [address] [address] Sea PughSodium [Moles/Vol]133 mmol/LCritically vmt633-095Nfg [facility] HospitalComment on above:Performed By: #### HSTROPN, CMP, CRP #### [facility] [address] [place] [address] Dr. Sea PughUrea nitrogen [Mass/Vol]9.0 mg/dLNormal7.0-18.0The [facility] HospitalComment on above:Performed By: #### HSTROPN, CMP, CRP #### [facility] [address] [place] [address] Dr. Sea PughUrea nitrogen/Creatinine [Mass ratio]7.4 mg/mgNormWhite HospitalComment on above:Performed By: #### HSTROPN, CMP, CRP #### [facility] [address] [address] [address] Sea PughProcalcitoninon 52-39-0401Ucxmuxjabxvti6.10 ng/mLHigh<0.09Grant HospitalComment on above:Result Comment: Suspected Sepsis: <0.50 [...] entered into the Change in Procalcitonin Calculator (www.hxypaz-hto-yrikmckgtf.com) to determine the patient's Mortality Risk Prognosis In healthy neonates, plasma Procalcitonin (PCT) concentrations increase gradually after , reaching peak values at about 24 hours of age then decrease to normal values below 0.5 ng/mL by 48-72 hours of age.Performed By: #### JOEL, BMP, CDP #### [facility] SystemLink_[facility] [address] [place] [address] Screen Cutter And Trimmer: Afshin Mansfield MDInterpretation and review of laboratory results AbnormalBON SECOURS DEPAUL MEDICAL CENTERProcalcitonin0.1 ng/mLHighNINF - 0.09 ng/mLBON SECOURS DEPAUL MEDICAL CENTERComment on above: Suspected Sepsis: <0.50 [...] entered into the Change in Procalcitonin Calculator (www.tnokuo-wqg-zvxgipashc.com) to determine the patient's Mortality Risk Prognosis In healthy neonates, plasma Procalcitonin (PCT) concentrations increase gradually after , reaching peak values at about 24 hours of age then decrease to normal values below 0.5 ng/mL by 48-72 hours of age. MIR[facility] COMMUNITY HOSPITALSED RATE WESTERGRENon 22-88-4802KRY RATE42 mm/hr Critically high<=20The [facility] HospitalComment on above:Performed By: #### SEDR #### [facility] [address] [address] [address] Sea Burnette, HIGH SENSITIVITYon 33-03-5161IJKWAE6.0 pg/mLNormal 4.0-76.1The [facility] HospitalComment on above:Result Comment: CUT-OFF POINTS HAVE BEEN ESTABLISHED BASED ON THE FOURTH UNIVERSAL DEFINITIONS OF MYOCARDIAL INFARCTION. THE UPPER REFERENCE LIMIT (URL) OF TROPONIN, DEFINED THE 99TH PERCENTILE OF cTnI DISTRIBUTION IN A REFERENCE POPULATION, HAS BEEN CONFIRMED THE DECISION THRESHOLD FOR [place] DIAGNOSIS.Performed By: #### HSTROPN, CMP, CRP #### [facility] [address] [place], [place] [address] Dr. Sea Cabrera Visit (Cardiology)on 96-39-2057Djnmhu-up visit Diagnoses/Problems Assessed Persistent atrial fibrillation (427.31) [...] Metabolic Panel; Status:Active - Retrospective Authorization; Requested for:18Msx0198; Overweight with body mass index (BMI) of [...] us (more content not included)...NormalUH TouchworksTobacco Screening.on 09-91-7087Hoty risk assessmenta) No falls within the last year- [facility] [employer] 250 DO Work Phone: Tobacco use status CPHSb) NoMP-[facility] [employer] 250 DO Work Phone: BNPon 37-34-2537Ewaznwsfbzb peptide B (Bld) [Mass/Vol] 836.0 pg/mLNormal<=900.0The [facility] HospitalComment on above:Performed By: #### HSTROPN, CMP, BNP ####[facility] [address] [place], [place] [address]ChDr. Sea CampuzanoC AUTO DIFFon 67-20-5718DHDW #0.1 103/ulNormal0.0-0.1The [facility] HospitalComment on above:Performed By: #### DDIM #### [facility] [address] [address] [address] Sea PughBasophils/100 WBC (Bld)0.5 %Normal0.2-2.0[facility] Comment on above:Performed By: #### DDIM #### [facility] [address] [address] [address] Sea Torre #0.3 103/ulNormal0.0-0.7The [facility] HospitalComment on above: Performed By: #### DDIM #### [facility] [address] [address] [address] Sea Fordosinophils/100 WBC (Bld)3.3 %Normal0.9-7.0[facility] Comment on above:Performed By: #### DDIM #### [facility] [address] [address] [address] Sea Fordrythrocyte distribution width (RBC) [Ratio]13.7 %Tujbrw11.0-15.0 [facility] Medical CenterComment on above:Performed By: #### DDIM #### [facility] [address] [address] [address] Sea PughHematocrit (Bld) [Volume fraction]41.3 %Critically low42.0-54.0 [facility] Medical CenterComment on above:Performed By: #### DDIM #### [facility] [address] [address] [address] Sea PughHemoglobin (Bld) [Mass/Vol]14.0 g/vFZuiwyi48.0-18.0The [facility] HospitalComment on above:Performed By: #### DDIM #### [facility] [address] [place] [address] Dr. Sea Anguiano #0.04 10e3/ulCritically high0.00-0.03The [facility] Comment on above:Performed By: #### DDIM #### [facility] [address] [place] [address] Dr. Sea Anguiano %0.4 %Normal0.0-0.5The [facility] HospitalComment on above: Performed By: #### DDIM #### [facility] [address] [place] [address] Dr. Sea Galeano #1.3 103/ulNormal1.2-3.8The [facility] HospitalComment on above:Performed By: #### DDIM #### [facility] [address] [place] [address] Dr. Sea Hoffmanhocytes/100 WBC (Bld)13.1 %Critically low20.5-60.0The [facility] HospitalComment on above:Performed By: #### DDIM #### [facility] [address] [place] [address] Dr. Sea Merino DIFF REQNONormalThe [facility] HospitalComment on above: Performed By: #### DDIM #### [facility] [address] [place] [address] Dr. Sea Figueroa (RBC) [Entitic mass]30.2 cuCazkgk44.9-34.0The [facility] HospitalComment on above:Performed By: #### DDIM #### [facility] [address] [place] [address] Dr. Sea Beasley (RBC) [Mass/Vol]33.9 g/zMOyuukq30.9-35.2The [facility] HospitalComment on above:Performed By: #### DDIM #### [facility] [address] [place] [address] Dr. Sea Izaguirre (RBC) [Entitic vol]89.0 zEPybtjm28.0-94.0The [facility] HospitalComment on above:Performed By: #### DDIM #### [facility] [address] [place] [address] Dr. Sea Rain #1.0 103/ulCritically high0.3-0.8The [facility] Comment on above:Performed By: #### DDIM #### [facility] [address] [place] [address] Dr. Sea Bansalocytes/100 WBC (Bld)9.8 %Normal1.7-12.0[facility] Comment on above:Performed By: #### DDIM #### [facility] [address] [place] [address] Dr. Sea Zapata #7.1 103/ulCritically high1.4-6.5ThAkron Children's [facility] Comment on above:Performed By: #### DDIM #### [facility] [address] [place] [address] Dr. Sea Valentineutrophils/100 WBC (Bld)72.9 %Beouxn21.0-75.0The [facility] HospitalComment on above:Performed By: #### DDIM #### [facility] [address] [place] [address] Dr. Sea Santacruzlet mean volume (Bld) [Entitic vol]9.7 fLNormal9.5-13.5The [facility] HospitalComment on above:Performed By: #### DDIM #### [facility] [address] [place] [address] Dr. Sea PughPLT247 103/tvGbhyll867-636Fiq [facility] HospitalComment on above: Performed By: #### DDIM #### [facility] [address] [place] [address] Dr. Sea PughRBC4.64 106/ulCritically low4.70-6.10The [facility] HospitalComment on above:Performed By: #### DDIM #### [facility] [address] [place], [place] [address] Dr. Sea PughWBC9.8 103/ulNormal4.0-11.0[facility] Medical CenterComment on above: Performed By: #### DDIM #### [facility] [address] [place], [place] [address] Dr. Sea Schultz CHEST WO W CONon 96-26-9469VRQ CHEST WO W CONCTA CHEST WITH IV [...] The subdiaphragmatic abdominal organs included in the ksrro-vx-xpkj do not demonstrate any acute abnormality. IMPRESSION: 1. Normal-appearing thoracic aorta. 2. No CT evidence for acute pulmonary embolus. 3. Otherwise unremarkable CT scan of the chest for acute pathology. Electronically authenticated by: OBI MIDDLETON Date: 2021-09-22 19:33NormWhite HospitalCovid-19 PCR (CVDTBH)on 39-16-6747RIMW-CoV-2 (COVID-19) RNA PHOENIX+probe Ql (Unsp spec)Not detectedNormalNOT DETECTEDThe [facility] Comment on above:Result Comment: When diagnostic [...] for this test is supported by the [employer] of Health and Human Service's declaration that [...] #### HSTROPN, CMP, CRP #### [facility] [address] [place], [place] [address] Dr. Sea PughPROLeila 14(COMP METB)on 59-90-7813Eggetvs [Mass/Vol]3.6 g/dLNormal 3.4-5.0The [facility] HospitalComment on above:Performed By: #### HSTROPN, CMP, BNP ####[facility] [address] [id number] PughAlbumin/Globulin [Mass ratio]0.9 {ratio}NormalThe [facility] Comment on above:Performed By: #### HSTROPN, CMP, BNP ####[facility] [address] [id number] PughALP [Catalytic activity/Vol]143 U/LCritically oaxs25-197Lwb [facility] HospitalComment on above: Performed By: #### HSTROPN, CMP, BNP ####[facility] [address] [address]Dr. Yilan ChangALT [Catalytic activity/Vol]28 U/L Ikwavx45-66Bge [facility] HospitalComment on above:Performed By: #### HSTROPN, CMP, BNP ####[facility] [address] [address]Dr. Yilan ChangAnion gap [Moles/Vol]12.6 mmol/LNormalThe [facility] Comment on above:Performed By: #### HSTROPN, CMP, BNP ####[facility] [address] [address]Dr. Yilan ChangAST [Catalytic activity/Vol]18 U/KLavyxw54-27Yhn [facility] HospitalComment on above:Performed By: #### HSTROPN, CMP, BNP ####[facility] [address] [address]Dr. Yilan ChangBilirubin [Mass/Vol]1.1 mg/dLCritically high0.2-1.0The [facility] HospitalComment on above:Performed By: #### HSTROPN, CMP, BNP ####[facility] [address] [address]Dr. Yilan ChangCalcium [Mass/Vol]8.7 mg/dLNormal8.5-10.1The [facility] HospitalComment on above:Performed By: #### HSTROPN, CMP, BNP ####[facility] [address] [address]Dr. Yilan Pugh Chloride [Moles/Vol]100 mmol/ONqbawr90-076Zju [facility] HospitalComment on above: Performed By: #### HSTROPN, CMP, BNP ####[facility] See[address] [place], [place] [address]Dr. Yilan ChangCO2 [Moles/Vol]27.1 mmol/LNormal 21.0-32.0The [facility] HospitalComment on above:Performed By: #### HSTROPN, CMP, BNP ####[facility] [address] [place], [place] [address]Dr. Yilan ChangCreatinine [Mass/Vol]1.15 mg/dLNormal0.70-1.30The [facility] Comment on above:Performed By: #### HSTROPN, CMP, BNP ####[facility] [address] [address]Dr. Yilan ChangEGFR-AF NEW ZEALANDER>60Normal>=60The [facility] HospitalComment on above:Performed By: #### HSTROPN, CMP, BNP ####[facility] [address] [address]Dr. Yilan ChangEGFR-NON AF NEW ZEALANDER>60Normal>=60The [facility] Comment on above:Performed By: #### HSTROPN, CMP, BNP ####[facility] [address] [address]Dr. Yilan ChangGlobulin (S) [Mass/Vol]3.9 g/dLNormalThe [facility] HospitalComment on above:Performed By: #### HSTROPN, CMP, BNP ####[facility] [address] [address]Dr. Yilan ChangGlucose [Mass/Vol]214 mg/dLCritically svgv63-192Tym [facility] HospitalComment on above:Performed By: #### HSTROPN, CMP, BNP ####[facility] [address] [address]Dr. Yilan ChangPotassium [Moles/Vol]3.7 mmol/LNormal3.5-5.1The [facility] Comment on above:Performed By: #### HSTROPN, CMP, BNP ####[facility] [address] [address]Dr. Yilan ChangProtein [Mass/Vol]7.5 g/dLNormal6.4-8.2The [facility] HospitalComment on above:Performed By: #### HSTROPN, CMP, BNP ####[facility] [address] [address]Dr. Yilan ChangSodium [Moles/Vol]136 mmol/LNormal 136-145[facility] Medical CenterComment on above:Performed By: #### HSTROPN, CMP, BNP ####[facility] [address] [address]Dr. Shondalan ChangUrea nitrogen [Mass/Vol]13.0 mg/dLNormal7.0-18.0[facility] Comment on above:Performed By: #### HSTROPN, CMP, BNP ####[facility] [address] [address]Dr. Shondalan ChangUrea nitrogen/Creatinine [Mass ratio]11.3 mg/mgNoKettering Health TroyComment on above:Performed By: #### HSTROPN, CMP, BNP ####[facility] [address] [place], [place] [address]Dr. Sea PughPROTIMEon 75-40-8323YNB Coag (PPP) [Relative time]1.07 {INR}NormalKettering Health Behavioral Medical CenterComment on above: Performed By: #### PT, PTT ####[facility] [address] [place], [place] [address]Dr. Sae PughINR GUIDELINESSEE St. Mary's Medical CenterComment on above:Result Comment: DESIRED INR: 2.0 - 3.0 CONDITIONS NOT LISTED BELOW 2.5 - 3.5 FOR PROSTHETIC HEART VALVE REPLACEMENT 2.5 - 3.5 RECURRENT THROMBOSISPerformed By: #### PT, PTT ####[facility] [address] [place], [place] [address]Dr. Sea PughPT Coag (PPP) [Time]11.5 sNormal9.0-11.6The [facility] HospitalComment on above:Performed By: #### PT, PTT ####[facility] [address] [place], [place] [address]Dr. Sea PughPTTon 17-41-0630pXIL Coag (Bld) [Time]30.2 jWtzrnk21.3-36.2 The [facility] HospitalComment on above:Performed By: #### PT, PTT ####[facility] [address] [place], [place] [address]Dr. Sea Pugh TROPONIN, HIGH SENSITIVITYon 97-22-3890GRBHSY5.5 pg/mLNormal4.0-76.1The [facility] HospitalComment on above:Result Comment: CUT-OFF POINTS HAVE BEEN ESTABLISHED BASED ON THE FOURTH UNIVERSAL DEFINITIONS OF MYOCARDIAL INFARCTION. THE UPPER REFERENCE LIMIT (URL) OF TROPONIN, DEFINED THE 99TH PERCENTILE OF cTnI DISTRIBUTION IN A REFERENCE POPULATION, HAS BEEN CONFIRMED THE DECISION THRESHOLD FOR [place] DIAGNOSIS.Performed By: #### HSTROPN, CMP, BNP ####[facility] [address] [place], [place] [address]El. Sea PughXR CHEST 1 Von [id number] CHEST 1 VEXAM: XR CHEST 1 V [...] chest is unchanged. Electronically authenticated by: FARIBA MCLCURE Date: 2021-09-22 19:39[facility] HospitalCT HEAD WO CONon [id number] HEAD WO CONCT head without contrast CLINICAL: [...] Electronically authenticated by: KENY GREENE Date: 2021-08-26 09:53City HospitalCT ORBIT WO CONon [id number] ORBIT WO CONCT cervical spine CLINICAL: HEADACHE [...] Electronically authenticated by: KENY GREENE Date: 2021-08-26 10:03[facility] W MANUAL DIFFon [id number] LYMPH #NormalMetroHealth Cleveland Heights Medical Centerment on above:Performed By: #### DDIM #### [facility] [address] [place] [address] Dr. Sea PughATYPICAL LYMPH %NormalThe Cleveland [facility] on above: Performed By: #### DDIM #### [facility] [address] [place] [address] Dr. Sea Li #Normal0.0-0.3The [facility] HospitalComment on above: Performed By: #### DDIM #### [facility] [address] [place] [address] Dr. Sea Li %Normal0-5The [facility] on above:Performed By: #### DDIM #### [facility] [address] [place] [address] Dr. Sea Daniels #0.00 103/ulNormal0.00-0.10The [facility] on above:Performed By: #### DDIM #### [facility] [address] [address] [address] Sea Daniels %0.0 %Critically low0.2-2.0The [facility] Hospital[facility] on above:Performed By: #### DDIM #### [facility] [address] [place] [address] Dr. Sea PughBLAST #NormalThe [facility] Hospital[facility] on above:Performed By: #### DDIM #### [facility] [address] [place] [address] Dr. Sea PughBLAST %NormalThe [facility] HospitalComment on above:Performed By: #### DDIM #### [facility] [address] [place] [address] Dr. Sea PughCORRECTED WBCNormal4.0-11.0The [facility] on above: Performed By: #### DDIM #### [facility] [address] [place] [address] Dr. Sea Kidd #0.21 103/ulNormal0.00-0.70The [facility] HospitalComment on above:Performed By: #### DDIM #### [facility] [address] [place] [address] Dr. Sea Kidd%2.0 %Normal0.9-7.0The [facility] on above: Performed By: #### DDIM #### [facility] [address] [place] [address] Dr. Sea PughHCT41.3 %Critically low42.0-54.0The [facility] Hospital[facility] on above:Performed By: #### DDIM #### [facility] [address] [place] [address] Dr. Sea PughHGB14.1 g/vkIpnuvv80.0-18.0The [facility] Hospital[facility] on above: Performed By: #### DDIM #### [facility] [address] [place] [address] Dr. Sea Alexandra #1.14 103/ulCritically low1.20-3.80The [facility] Comment on above:Performed By: #### DDIM #### [facility] [address] [address] [address] Sea Alexandra%11.0 %Critically low20.5-60.0The [facility] HospitalComment on above:Performed By: #### DDIM #### [facility] [address] [address] [address] Sea SteeleH30.9 ijMokhjq91.9-34.0The [facility] HospitalComment on above: Performed By: #### DDIM #### [facility] [address] [address] [address] Sea SteeleHC34.1 g/nfMqqlop14.9-35.2The [facility] HospitalComment on above:Performed By: #### DDIM #### [facility] [address] [place] [address] Dr. Sea SteeleV90.4 xXAssusf84.0-94.0The [facility] Hospital[facility] on above: Performed By: #### DDIM #### [facility] [address] [address] [address] Sea PughMETAMYELOCYTE #NormalThe [facility] HospitalComment on above: Performed By: #### DDIM #### [facility] [address] [place] [address] Dr. Sea CraftAMYELOCYTE %NormalThe [facility] HospitalComment on above: Performed By: #### DDIM #### [facility] [address] [place] [address] Dr. Sea Betancourt#1.98 103/ulCritically high0.30-0.80The [facility] Comment on above:Performed By: #### DDIM #### [facility] [address] [place] [address] Dr. Sea Betancourt%19.0 %Critically high1.7-12.0The [facility] Hospital[facility] on above:Performed By: #### DDIM #### [facility] [address] [place] [address] Dr. Yilan ChangMPV9.7 fLNormal9.5-13.5The [facility] Hospital[facility] on above: Performed By: #### DDIM #### [facility] [address] [place] [address] Dr. Sea Medina #NormalThe [facility] HospitalComment on above:Performed By: #### DDIM #### [facility] [address] [place] [address] Dr. Sea CifuentesOCYTE %NormalThe [facility] HospitalComment on above:Performed By: #### DDIM #### [facility] [address] [place] [address] Dr. Sea EcholsBCNormalThe [facility] HospitalComment on above:Performed By: #### DDIM #### [facility] [address] [place] [address] Dr. Sea DiezT259 103/ghDpikee255-941Klf [facility] HospitalComment on above: Performed By: #### DDIM #### [facility] [address] [place] [address] Dr. Sea VázquezC4.57 106/ulCritically low4.70-6.10The [facility] HospitalComment on above:Performed By: #### DDIM #### [facility] [address] [place] [address] Dr. Sea PughRDW13.4 %Unwszo77.0-15.0The [facility] HospitalComment on above: Performed By: #### DDIM #### [facility] [address] [place] [address] Dr. Sea Treadwell #7.07 103/ulCritically high1.40-6.50The [facility] on above:Performed By: #### DDIM #### [facility] [address] [place] [address] Dr. Sea Treadwell %68.0 %Znbmqe86.0-75.0The [facility] HospitalComment on above: Performed By: #### DDIM #### [facility] [address] [place] [address] Dr. Yilan QuyffKZF67.4 103/ulNormal4.0-11.0The [facility] HospitalComment on above:Performed By: #### DDIM #### [facility] [address] [address] [address] Sea RobertsonF CHEM 8 (BAS METB)on 81-47-8697Nmjzo gap [Moles/Vol]13.5 mmol/LNormalThe [facility] HospitalComment on above:Performed By: #### HSTROPN, CMP, CRP #### [facility] [address] [address] [address] Sea PughCalcium [Mass/Vol]8.7 mg/dLNormal8.5-10.1The [facility] Comment on above:Performed By: #### HSTROPN, CMP, CRP #### [facility] [address] [address] [address] Sea PughChloride [Moles/Vol]97 mmol/LCritically vvh87-058Muc [facility] HospitalComment on above:Performed By: #### HSTROPN, CMP, CRP #### [facility] [address] [address] [address] Sea PughCO2 [Moles/Vol]24.2 mmol/IQiybzt90.0-32.0The [facility] Comment on above:Performed By: #### HSTROPN, CMP, CRP #### [facility] [address] [address] [address] Sea PughCreatinine [Mass/Vol]1.26 mg/dLNormal0.70-1.30The [facility] HospitalComment on above:Performed By: #### HSTROPN, CMP, CRP #### [facility] [address] [address] [address] Osei ChangEGFR-AF [place] Z[place]ALANDER>60Normal>=60The [facility] HospitalComment on above:Performed By: #### HSTROPN, CMP, CRP #### [facility] [address] [address] [address] Sea FordGFR-NON AF HLIAHVWV21 mL/min/1.48j4Qgsgqbmviq low>=60The [facility] HospitalComment on above:Performed By: #### HSTROPN CMP, CRP #### [facility] [address] [address] [address] Sea PughGlucose [Mass/Vol]201 mg/dLCritically hzwq28-354Wiz [facility] HospitalComment on above:Performed By: #### HSTROPTiffany CMP, CRP #### [facility] [address] [address] [address] Sea PughPotassium [Moles/Vol]3.7 mmol/LNormal3.5-5.1The [facility] Comment on above:Performed By: #### LILIANTROPTiffany CMP, CRP #### [facility] [address] [address] [address] Sea PughSodium [Moles/Vol]131 mmol/LCritically jon159-503Coh [facility] HospitalComment on above:Performed By: #### HSTROPN CMP, CRP #### [facility] [address] [address] [address] Sea PughUrea nitrogen [Mass/Vol]21.0 mg/dLCritically high7.0-18.0The [facility] HospitalComment on above:Performed By: #### HSTROPTiffany CMP, CRP #### [facility] [address] [address] [address] Sea PughUrea nitrogen/Creatinine [Mass ratio]16.7 mg/mgNormalThe [facility] HospitalComment on above:Performed By: #### HSTROPN CMP, CRP #### [facility] [address] [place] [address] Dr. Sea PughXR CHEST 2 Von [id number] CHEST 2 VEXAM: XR CHEST 2 V [...] Electronically authenticated by: VICENTA MARCH Date: 2021-08-22 05:46[facility] HospitalXR SINUSES 3 VIEWS OR GREATERon 35-19-6022SO SINUSES 3 VIEWS OR GREATERXR SINUSES 3 [...] Electronically authenticated by: LOULOU DAVIS Date: 2021-08-22 06:31City HospitalTobacco Screening.on 98-20-1966Pefie depression screening assessmentNoPe[facility] [employer] [address] DO Work Phone: Fall risk assessmenta) No falls within the last year [facility] 250 DO Work Phone: Tobacco use status CPHSb) [facility]- [employer] 250 DO Work Phone: Vital Signs Date TimeVital SignValuePerforming SosyynfskMdzbfrns21-49-6091 16:38-0400Body ecnvyx466.4 cmLwilder MazariegosMount Carmel Health System09-03-2025 16:38-0400Body mass index (BMI) [Ratio]24.01 kg/k6ZnuvnleKristin Mcmanus [facility]09-03-2025 16:38-0400Body sjutpk72.56 kgKristin MazariegosMount Carmel Health System09-03-2025 16:38-0400Diastolic blood ldxiugmj16 mm[Hg]Kristin Mcmanus [facility]09-03-2025 16:38-0400Heart rate64 /minKristin MazariegosMount Carmel Health System 11-23-2024 16:38-0400Systolic blood urtsqscp994 mm[Hg]Kristin Mazariegosm [facility]08-20-2025 14:25-0400Body niifgb774.4 [facility] 14:25-0400Body mass index (BMI) [Ratio]24.46 kg/p3ZwabhxStephens County Hospital08-20-2025 14:25-0400Body kjjxuk96.1 kgStephen[facility] Hospital08-20-2025 14:25-0400Diastolic blood aszisqpf84 mm[Hg] [facility]08-20-2025 14:25-0400Heart rate61 /minStephens County Hospital08-20-2025 14:25-0400Systolic blood stjhbybe322 mm[Hg][facility]08-14-2025 13:40-0400Body sgrinm773.4 cmNicpancho Brown DPM Work Phone: [facility] CenterBwbhhstrzc01-95-1772 13:40-0400Body mass index (BMI) [Ratio]27.97 kg/h3Jqocpsyj Brown DPM Work Phone: [facility] CenterNzjgfwlbdi45-60-0227 13:40-0400Body ledmas82.16 kgNicholas Brown DPM Work Phone: [address] [address]Orcetsnayx14-41-7814 13:40-0400Respiratory rate16 /minNicpancho Brown DPM Work Phone: [facility] CenterVnahqadlox55-91-2428 14:28-0400Body grubot130.4 cmVeronica Liz MD Work Phone: [facility]08-06-2025 14:28-0400 Body mass index (BMI) [Ratio]24.28 kg/s3VeeuubfVeronica Liz MD Work Phone: 1(440)[address]08-06-2025 14:28-0400 Body aqixud80.46 kgVeronica Liz MD Work Phone: 1(572)[address]08-06-2025 14:28-0400 Diastolic blood lcbtptut03 mm[Hg]Veronica Liz MD Work Phone: 1(597)[address]08-06-2025 14:28-0400 Heart rate62 /minVeronica Liz MD Work Phone: 1(598)[address]08-06-2025 14:28-0400 Systolic blood mm[Hg]Veronica Liz MD Work Phone: 1(198)[address]03-06-2025 13:28-0500 Body .4 cmMarciano Brown DPM Work Phone: 1(769)259-[address] [place], [place] [address]Qqyhaeguzw65-48-0091 13:28-0500Body mass index (BMI) [Ratio]27.97 kg/w6Muqzllyq Brown DPM Work Phone: 1(452)[address]03-06-2025 13:28-0500Body ugfdys67.16 kgMarciano Brown DPM Work Phone: 1(623)5-[address] [place], [place] [address]Sbdwrrmxrv82-08-7573 13:28-0500Respiratory rate18 /Donta Hi DPM Work Phone: 8(605)0-[address] [place], [place] [address]Kbnplqcuge10-02-3677 13:45-0500Body dxblar939.4 cmVeronica Liz MD Work Phone: 1(162)[address]01-29-2025 13:45-0500 Body mass index (BMI) [Ratio]26.25 kg/i8SekloanVeronica Liz MD Work Phone: 1(458)23[address]01-29-2025 13:45-0500 Body .27 kgVeronica Liz MD Work Phone: 1(098)[address]379 [address]01-29-2025 13:45-0500 Diastolic blood vrsunknn75 mm[Hg]Veronica Liz MD Work Phone: 1(967)387-[address] [place], [place] [address]01-29-2025 13:45-0500 Heart rate61 /Brody Liz MD Work Phone: 1(824)[address]01-29-2025 13:45-0500 Systolic blood hoiwttwv53 mm[Hg]Veronica Liz MD Work Phone: 1(523)[address]12-26-2024 11:51-0500 Body choifo518.4 cmMarciano Brown DPM Work Phone: 1(253)93169 [address]12-26-2024 11:51-0500Body mass index (BMI) [Ratio]27.97 kg/i3Kqhqohgq Brown DPM Work Phone: 1(237)[address]12-26-2024 11:51-0500Body ofceoa39.16 kgNicpancho Brown DPM Work Phone: 1(727)179-[address] [place], [place] [address]Tddxsrwmzn67-36-5590 11:51-0500Respiratory rate18 /Donta Hi DPM Work Phone: 0(851)064-[address] [place], [place] [address]Vbxlkqytbt29-34-4452 14:56-0500Body xacylt792.4 Shanda Liz MD Work Phone: 1(643)[address]11-07-2024 14:56-0500 Body mass index (BMI) [Ratio]27.31 kg/t9GervasrVeronica Liz MD Work Phone: 1(097)205[address]11-07-2024 14:56-0500 Body ddyybv98.89 kgVeronica Liz MD Work Phone: 1(615)589-[address] [place], [place] [address]11-07-2024 14:56-0500 Diastolic blood mm[Hg]Veronica Liz MD Work Phone: 7(908)685-[address] [place], [place] [address]11-07-2024 14:56-0500 Heart rate55 /Brody Liz MD Work Phone: [facility]11-07-2024 14:56-0500 Systolic blood mvoakjaa898 mm[Hg]Veronica Liz MD Work Phone: 1(726)560-[address] [place], [place] [address]10-17-2024 13:51-0400 Body kglkce204.4 cmMarciano Hi DPM Work Phone: 1(904)[address]10-17-2024 13:51-0400Body mass index (BMI) [Ratio]27.97 kg/f5MkhntgsoMarciano Hi DPM Work Phone: 1(882)[address]10-17-2024 13:51-0400Body omhfbe75.16 kgMarciano Hi DPM Work Phone: 1(233)[address]10-17-2024 13:51-0400Diastolic blood mm[Hg]Marciano Hi DPM Work Phone: 1(152)[address]10-17-2024 13:51-0400Heart rate81 /min Marciano Hi DPM Work Phone: 1(177)[address]10-17-2024 13:51-0400Systolic blood unldlqzy208 mm[Hg]Marciano Hi DPM Work Phone: 1(034)31269 [address]05-09-2024 15:50-0400Diastolic blood kzwcsohj91 mm[Hg]Veronica Liz MD Work Phone: 1(243)670-[address] [place], [place] [address]883605-09-2024 15:50-0400 Systolic blood pekhcisw013 mm[Hg]Veronica Liz MD Work Phone: 1(003)243-[address] [place], [place] [address]5-09-2024 14:47-0400 Body ycshcc985.4 cmVeronica Liz MD Work Phone: 1(771)03179 [address]05-09-2024 14:47-0400 Body mass index (BMI) [Ratio]28.1 kg/h4HazghanVeronica Liz MD Work Phone: 1(440)414[address]05-09-2024 14:47-0400 Body nvjnfy74.62 kgVeronica Liz MD Work Phone: 1(592)[address]05-09-2024 14:47-0400 Heart rate96 /Brody Liz MD Work Phone: 1(992)[address]11-09-2023 14:35-0500 Body eepitk330.4 cmVeronica Liz MD Work Phone: 1(955)[address]11-09-2023 14:35-0500 Body mass index (BMI) [Ratio]28.89 kg/j0YohdzvzVeronica Liz MD Work Phone: 1(441)[address]11-09-2023 14:35-0500 Body oljpyz30.34 kgVeronica Liz MD Work Phone: 1(714)[address]11-09-2023 14:35-0500 Diastolic blood nwkeeksa80 mm[Hg]Veronica Liz MD Work Phone: 1(058)[address]11-09-2023 14:35-0500 Heart rate62 /Brody Liz MD Work Phone: 1(608)[address]11-09-2023 14:35-0500 Systolic blood diimtpes222 mm[Hg]Veronica Liz MD Work Phone: 1(573)[address]05-17-2023 13:15-0400 Body webjig163.42 cmCharles P House Work Phone: mp348-6912CH-Qivrw [facility] [address] [place] Work Phone: 1(673) 432-225605-17-2023 13:15-0400Body mass index (BMI) [Ratio] 28.23 kg/j5Uckiddv P House Work Phone: mp938-3252GX-Vieqp [facility] [address] [place] Work Phone: 1(734) 787-418605-17-2023 13:15-0400Body surface area Derived from formula2.21 j8[place]unapne P House Work Phone: mp099-1406XP-Hnnlx [facility] [address] [place] Work Phone: 1(881) 869-351605-17-2023 13:15-0400Body reklgp77.07 kgCharles P House Work Phone: 1(585) 390-4166237-6590JG-Naptm [facility] [address] [place] Work Phone: 1(836) 727-599705-17-2023 13:15-0400Diastolic blood ucfezgdw67 mm[Hg] Valente P House Work Phone: 1(979) [phone]-Stsfx [facility] [address] [place] Work Phone: 1(400) 220-884905-17-2023 13:15-0400Heart rate57 /minCharles P House Work Phone: 1(139) [phone]-Ejtvh [facility] [address] [place] Work Phone: 1(266) 196-904705-17-2023 13:15-0400Systolic blood zrzqdukh959 mm[Hg] Valente P House Work Phone: 1(636) 353-2823726-1545HL-Vijrf [facility] [address] [place] Work Phone: 1(115) 934-310503-17-2023 09:22-0400Body lcwvqa461.42 cmCharles P House Work Phone: 1(656) [phone]-Cyoqo [facility] [address] DO Work Phone: 1(282) 733-356603-17-2023 09:22-0400Body mass index (BMI) [Ratio] 27.84 kg/c6Pzaahlk P House Work Phone: 1(381) [phone]-Qmrjt [facility] [address] DO Work Phone: 1(427) 811-636603-17-2023 09:22-0400Body surface area Derived from formula2.2 s8Zmkdrgq P House Work Phone: mp454-7517JN-Pfijj [facility] [address] DO Work Phone: 1(823) 699-667703-17-2023 09:22-0400Body oqjzzg91.71 kgCharles P House Work Phone: mp232-3797HV-[facility]dntvNorth[facility]-[place] [facility] [place] Work Phone: 1(213) 948-933803-17-2023 09:22-0400Diastolic blood xuezgwzh59 mm[Hg] Valente P House Work Phone: 1(196) [phone]-DycosSleepy [facility]-[place] [address] [place] Work Phone: 1(635) 692-412503-17-2023 09:22-0400Heart rate80 /minCharmarianela House Work Phone: 1(129) [phone]-AearjSleepy Eye Medical Center-[place] [address] DO Work Phone: 1(960) 599-394403-17-2023 09:22-0400Systolic blood svoclekt477 mm[Hg] Valente Ortega House Work Phone: 1(635) [phone]-HsyssSleepy Eye [facility] Center-[facility] DO Work Phone: 1(263) 269-699403-16-2023 13:14-0400Body ckkrii166.42 cmCharles House Work Phone: 1(117) 215-8585769-5603XL-FttcySt. Mary's Hospitalusky 250 DO Work Phone: 1(254) 867-926203-16-2023 13:14-0400Body mass index (BMI) [Ratio] 27.84 kg/u4Yhkxnok House Work Phone: 1(668) [phone]-WubpgFederal Medical Center, [facility]Norm[facility] DO Work Phone: 1(305) 627-291603-16-2023 13:14-0400Body surface area Derived from formula2.2 t4Wsahkdf House Work Phone: 1(799) [phone]-HgevzSt. Mary's Hospitalusky 250 DO Work Phone: 1(529) 509-614703-16-2023 13:14-0400Body lqtdte96.71 kgCharmarianela House Work Phone: 1(170) 354-4465629-5255PC-LydjsSleepy Eye Medical Center-[place] 250 DO Work Phone: 1(889) 987-864903-16-2023 13:14-0400Diastolic blood rpslyata26 mm[Hg] Valente Ortega House Work Phone: 1(901) [phone]-DjkheSleepy Eye Medical Center-[place] 250 DO Work Phone: 1(433) 218-908003-16-2023 13:14-0400Heart kckp380 /minCharles P House Work Phone: mp014-8253YP-Izigf [facility] [address] DO Work Phone: 1(528) 300-102003-16-2023 13:14-0400Systolic blood pggopjlf635 mm[Hg] Valente P House Work Phone: mp949-3251DN-Goddr [facility] [address] DO Work Phone: 1(159) 163-835209-14-2022 10:00-0400Diastolic blood mm[Hg] Neal Velázquez MD Work Phone: [facility]09-14-2022 10:00-0400Heart rate82 /minMichaelul Eber LEW Work Phone: [facility]09-14-2022 10:00-0400 Respiratory rate18 /minPaul Eber LEW Work Phone: [facility]09-14-2022 10:00-1148JcU9% (BldA) [Mass fraction]95 %Neal Velázquez MD Work Phone: [facility]09-14-2022 10:00-0400Systolic blood fwwcoacq818 mm[Hg]Neal Velázquez MD Work Phone: [facility]09-14-2022 08:00-0400Body gmmtodvwzon44.9 [degF]Neal Velázquez MD Work Phone: [facility]09-08-2022 03:30-0400Body .4 cmPgeorgel Eber LEW Work Phone: [facility] MVJGHZ14-22-7852 03:30-0400Body mass index (BMI) [Ratio]27.34 kg/m2Paul Eber LEW Work Phone: [facility] UZEGSS14-02-8713 03:30-0400Body lkibnm89 kgPaul Eber LEW Work Phone: [facility] SMDTFE03-60-9978 14:19-0400Diastolic blood geddsxrg13 mm[Hg]Valente P House Work Phone: mp675-6568HY-Tjsko [facility] [address] DO Work Phone: 1(356) 631-754909-07-2022 14:19-0400Systolic blood ujqesjvn193 mm[Hg] Valente P House Work Phone: mp268-0494MY-Asbsq [facility] DO Work Phone: 1(446) 739-967009-07-2022 13:40-0400Body rwhipe389.42 cmCharles P House Work Phone: mp894-3720BU-Jhefv [facility] [address] DO Work Phone: 1(419) 939-856909-07-2022 13:40-0400Body mass index (BMI) [Ratio] 28.63 kg/c6Tlvajre P House Work Phone: mp670-0143WY-Baqvu [facility] [address] DO Work Phone: 1(611)999-194-271046-79973379-26-5360 13:40-0400Body surface area Derived from formula2.23 t9Hxobhgu House Work Phone: mp340-0233SX-Edfyl [facility] [address] DO Work Phone: 1(114) 405-326609-07-2022 13:40-0400Body sfqels26.43 kgCharmarianela P House Work Phone: mp140-9954KL-Msqcc [facility] [address] DO Work Phone: 1(761) 832-137709-07-2022 13:40-0400Diastolic blood mm[Hg] Valente Ortega House Work Phone: mp094-6244HS-Adwip [facility] [address] DO Work Phone: 1(884) 779-702509-07-2022 13:40-0400Heart rate61 /minCharmarianela P House Work Phone: mp655-3806BR-Uholw [facility] [address] DO Work Phone: 1(241) 981-770009-07-2022 13:40-0400Systolic blood roiwcndi240 mm[Hg] Valente P House Work Phone: mp468-2612YA-Xsfcx [facility] [employer] [facility] [address] DO Work Phone: 1(359) 312-874106-28-2022 12:15-0400Body .42 cmThomas Olexa Other [employer] Other 06-28-2022 12:15-0400Body mass index (BMI) [Ratio] 28.49 kg/c3Knlbxb Olexa Other [employer] Other 06-28-2022 12:15-0400Body tvmuif77.98 kgThomas Olexa Other [employer] Other 06-09-2022 10:30-0400Body pyqjxp537.42 cmThomas Olexa Other [employer] Other 06-09-2022 10:30-0400Body mass index (BMI) [Ratio] 28.49 kg/l6Sluhjs Olexa Other [employer] Other 06-09-2022 10:30-0400Body comcyo16.98 kgThomas Olexa Other [employer] Other 03-02-2022 13:17-0500Body .42 cmCharles P House Work Phone: mp900-6712GM-Yeamq [facility] [address] DO Work Phone: 1(709) 741-688703-02-2022 13:17-0500Body mass index (BMI) [Ratio] 29.95 kg/e2Tlhvwru P House Work Phone: mp220-0375SC-Epkdr [facility] [address] DO Work Phone: 1(341) 865-785303-02-2022 13:17-0500Body surface area Derived from formula2.27 b4Hhexdvm P House Work Phone: mp122-4850TK-Dbxgi [facility] [address] DO Work Phone: 1(691) 296-881203-02-2022 13:17-0500Body raherg505.97 kgCharles P House Work Phone: mp445-3857VW-Cifof [facility] [address] DO Work Phone: 1(326) 563-345003-02-2022 13:17-0500Diastolic blood sxeaolez17 mm[Hg] Valente P House Work Phone: mp970-4786HH-Pkjuo [facility] [address] DO Work Phone: 1(685) 377-475303-02-2022 13:17-0500Heart rate60 /minCharles P House Work Phone: mp302-6066JZ-Xrrck [facility] [address] DO Work Phone: 1(582) 354-302003-02-2022 13:17-0500Systolic blood empfavna786 mm[Hg] Valente P House Work Phone: mp970-3560DH-Hwwia [facility] [address] DO Work Phone: Encounters Encounter DateEncounter TypeCare ProviderFacilityStart: 01-30-2025 End: 43-44-6924nfnkpfyyhxDPHYVINMer[facility] Start: 01-30-2025 End: 20-04-0590riivenamjyPHWMZMZMercy Memorial Hospital Start: 01-30-2025 End: 66-05-0798ksoqfwdssiTQDFPXKMercy Memorial Hospital Start: 01-30-2025 End: 40-06-2520yssdngiumgAHIFFMM [facility] Start: 01-18-2025 End: 36-84-2776gffkqqjusoAKVSFCV [facility] Start: 01-12-2025 End: 44-00-1599Dgqfzsbzy department patient visitTim ThomasFacility:FTMCStart: 12-15-2024 End: 19-89-9663paveufhbvvXbtczvn D [facility] Work Phone: Start: 12-15-2024 End: 19-64-1535Txksbyuv Viktor Mae DO-LAB [facility] Start: 11-23-2024 End: 42-35-3161Ixhakplvulpf / ancillary services managementKristin Mcmanus LPNell J. Redfield Memorial HospitalComment on above:High risk medication use; Persistent atrial fibrillation (Multi)Start: 11-23-2024 End: 55-88-9242czhvnvbljuJZDHVLLJeff [facility] Hospital AmbulatoryStart: 11-09-2024 End: 73-95-9323Objziifybmcw / ancillary services managementClyde Leila Yoo [facility] HospitalComment on above:Persistent atrial fibrillation (Multi) (Primary Dx); High risk medication useStart: 11-09-2024 End: 33-72-6165hplgyrtfknHDPPFZBJeff Davis Hospital AmbulatoryStart: 11-03-2024 End: 29-29-0745Fefcue outpatient visit 10 minutesMarciano Hi DPM Work Phone: noms PODIATRYComment on above:Xerosis cutis (Primary Dx); Diabetes 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, unspecified whether chcf insulin use (HCC); Pain due to onychomycosis of toenails of both feet; Right foot dropStart: 11-03-2024 End: 73-99-0693Cfwabwjosselyn Hi DPM Work Phone: noMS CI PODIATRYStart: 11-03-2024 End: 78-93-6327Rwihposaida Hi DPM Work Phone: noMS CI PODIATRYStart: 11-03-2024 End: 93-51-2994ezexphvmqmGDTWDEOA A BROWNNot AvailableStart: 10-26-2024 End: 50-03-2874Bxbzdz outpatient visit 25 minutesVeronica Liz MD Work Phone: [facility] on above:Persistent atrial fibrillation (Multi) (Primary Dx); Single vessel coronary disease; High risk medication use; Stenosis of right carotid artery; Mixed hyperlipidemia; Essential hypertension; Anemia, unspecified type; Cerebrovascular accident (CVA), unspecified mechanism (Multi); Former smoker; BMI 24.0-24.9, adult; Prolonged QT intervalStart: 10-26-2024 End: 73-21-7255wlnotipcxnJLANZIVJeff Davis Hospital AmbulatoryStart: 08-11-2024 End: 51-31-4239uorfgqnyvsQFWATWQU A BROWNNot AvailableStart: 05-26-2024 End: 81-81-5599Avpzzy flowsheetNicholmedina A Brown DPM Work Phone: noms CI PODIATRYStart: 05-26-2024 End: 68-12-6938Dnptnc flowsheetNicholas A Brown DPM Work Phone: noms PODIATRYStart: 05-26-2024 End: 73-14-4117Dddogl outpatient visit 15 minutesNicpancho Hi DPM Work Phone: noms CI PODIATRYComment on above:Xerosis cutis (Primary Dx); Diabetes 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, unspecified whether chcf insulin use ([facility]); Pain due to onychomycosis of toenails of both feet; Right foot dropStart: 05-26-2024 End: 15-75-1476ifplzbmjtnMPPMRIKE A BROWNNot AvailableStart: 04-20-2024 End: 49-46-5420Irijvq outpatient visit 40 minutesVeronica Liz MD Work Phone: uh [facility] RexComment on above:TIA (transient ischemic attack) (Primary Dx); Single vessel coronary disease; High risk medication use; Stenosis of right carotid artery; Persistent atrial fibrillation (Multi); Mixed hyperlipidemia; Essential hypertension; Cerebrovascular accident (CVA), unspecified mechanism (Multi); Former smoker; BMI 26.0-26.9,adultStart: 04-20-2024 End: 91-47-0100jabjqecsnsUZYBYYYJeff Davis Hospital AmbulatoryStart: 03-17-2024 End: 26-73-9920Zdolfw Julia Hi DPM Work Phone: noms CI PODIATRYStart: 03-17-2024 End: 61-36-4098Vuxhqu Julia Hi DPM Work Phone: noms CI PODIATRYStart: 03-17-2024 End: 45-39-2521Baxymo outpatient visit 10 minutesMarciano Hi DPM Work Phone: noms CI PODIATRYComment on above:Xerosis cutis (Primary Dx); Diabetes 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, unspecified whether terminal worker insulin use ([facility]); Pain due to onychomycosis of toenails of both feet; Right foot dropStart: 03-17-2024 End: 50-91-3181itwfqmxubyFPBMYYOW A BROWNNot AvailableStart: 01-28-2024 End: 20-02-0671Sixcky outpatient visit 25 minutesVeronica Liz MD Work Phone: uh [facility] RexComment on above:Persistent atrial fibrillation (Multi) (Primary Dx); Single vessel coronary disease; Mixed hyperlipidemia; Essential hypertension; Anemia, unspecified type; Cerebrovascular accident (CVA), unspecified mechanism (Multi); High risk medication use; Former smoker; BMI 27.0-27.9,adultStart: 01-28-2024 End: 59-67-5528erulytsfgoIVNKSOOJeff Davis Hospital AmbulatoryStart: 01-07-2024 End: 28-82-4686Crghsc Julia Hi DPM Work Phone: noms CI PODIATRYStart: 01-07-2024 End: 67-47-9704Iweuov Julia Hi DPM Work Phone: noms CI PODIATRYStart: 01-07-2024 End: 18-05-9506Gtqnjy outpatient visit 15 minutesMarciano Hi DPM Work Phone: noms CI PODIATRYComment on above:Xerosis cutis (Primary Dx); Onychomycosis; Pain due to onychomycosis of toenails of both feet; Right foot dropStart: 01-07-2024 End: 55-52-3517tuwmqvigygSJQSJUJO A BROWNNot AvailableStart: 07-30-2023 End: 23-04-7510Fcnoyn outpatient visit 25 minutesVeronica Liz MD Work Phone: uh [facility] on above:High risk medication use (Primary Dx); Single vessel coronary disease; Essential hypertension; Mixed hyperlipidemia; Persistent atrial fibrillation (Multi); BMI 28.0-28.9,adult; Cerebrovascular accident (CVA), unspecified mechanism (Multi); Anemia, unspecified type; Former smokerStart: 01-29-2023 End: 99-57-6280Fkiity outpatient visit 25 minutesVeronica Liz MD Work Phone: uh [facility] on above:Single vessel coronary disease (Primary Dx); Essential hypertension; Mixed hyperlipidemia; Persistent atrial fibrillation (CMS/HCC); Anemia, unspecified type; BMI 28.0-28.9,adultStart: 27-68-9900Zp RenewalCharles P House Work Phone: [phone]-Qvjzq [facility] [address] [place] Work Phone: Start: 81-92-5077zbbcldnqwwZxmwdze Traboulssi Facility:[id number]: 45-34-8236Cf RenewalCharles P House Work Phone: [phone]-Phuqy [facility] [address] DO Work Phone: Start: 06-36-3094BPS, Provider: Veronica Liz, Status: Pen, Time: 9:40 AMCharles P House Work Phone: [phone]-Ytjfa [facility] [address] DO Work Phone: Start: 52-20-8678Jmmpvx outpatient visit 10 minutes Valente P House Work Phone: [phone]-Ntrij [facility] [address] DO Work Phone: Start: 02-92-6603krcwaggypkSnzzuwz Traboulssi Facility:[id number]: 76-33-6033Lbmqng outpatient visit 40 minutesCharles P House Work Phone: [phone]-Qfzsx [facility] [address] DO Work Phone: Start: 43-06-3090aqbbdjvjioLoeupbs [facility] Facility:[id number]: 05-14-2022 End: 66-04-6734jzrrhhvwchTW VALENTE HOUSEFacility:A9Rqulj: 04-20-2022 End: 84-30-8193koorfaidbtCD VALENTE HAZLETFacility:V9Sdmcy: 35-42-1170Rw Renewal Valente P House Work Phone: [phone]-[facility]vsjq[facility] [facility] Work Phone: Start: 12-20-2021 End: 42-45-8382wlwrpuifbsKY VALENTE HAZLETFacility:N1Guxxa: 12-05-2021 End: 26-85-9370bhpcqewkerTP VALENTE HAZLETFacility:V5Rbfpg: 11-28-2021 End: 81-26-0205Nwtgavttpb and management of inpatientMELISSA MARKERAdena Health Systemtart: 11-28-2021 End: 93-89-5096Przbapxjue and management of inpatientPaul Eber LEW Work Phone: stvZ 1B Neuro ICUComment on above:Cerebrovascular accident (CVA), unspecified mechanism (HCC) (Primary Dx); HyponatremiaStart: 11-28-2021 End: 26-42-7983dtnnyjpsrnAP BENITA MARKER .Facility:D9Uwfvk: 06-80-1468Mjlynq outpatient visit 25 minutesCharles P House Work Phone: [phone]-Lgtla [facility] [address] DO Work Phone: Start: 76-23-5118vwzkrujckdXhalqrw Traboulssi Facility:[id number]: 28-35-5802Nj RenewalCharles P House Work Phone: [phone]-Apjzi [facility] [address] DO Work Phone: Start: 10-00-1762zmegcpgyqkCodcir SeeimFacility:9090 Start: 09-22-2021 End: 25-57-1333yrkdecoqhpIS ANN AYALAECKFacility:X0Zavtq: 09-17-2021 End: 77-30-9335irvwtllwcsWrnvhf Olexa Other Phone2Action Other Start: 21-04-3247Vjgsiy follow up visit related to original pxThomas OlexaFPG [facility] OrthopedicsStart: 08-29-2021 End: 45-04-7127abxcnjoapfUqonoo Olexa Other Phone2Action Other Start: 93-68-9538DIIQ visit new patientThomas OlexaFPG [facility]ita OrthopedicsStart: 08-26-2021 End: 22-73-9616zuyamsmrdzSN CHARLES HAZLETFacility:V9Wieoz: 08-22-2021 End: 27-59-7551vmxbguhkniOK VALENTE HAZLETFacility:B1Yxtgu: 43-73-9900Ijkzlr outpatient visit 25 minutesCharles P House Work Phone: [phone]-Riftk [facility] [address] DO Work Phone: Start: 54-48-2055Pednxra encounter procedureMOFELI BENTLEYacility:1532 Procedures DateProcedureProcedure DetailPerforming ClinicianStart: 10-18-5271Ofz routine ecg w/least 12 lds w/i&rMwillow Liz MD Work Phone: Start: 85-25-9985Emi routine ecg w/least 12 lds w/i&r Veronica Liz MD Work Phone: Start: 14-53-3799Mav routine ecg w/least 12 lds w/i&r Veronica Liz MD Work Phone: Start: 29-53-4338Hfe routine ecg w/least 12 lds w/i&r Veronica Liz MD Work Phone: Start: 97-09-4706Bbz routine ecg w/least 12 lds w/i&r Veronica Liz MD Work Phone: Start: 95-17-5152Qbf routine ecg w/least 12 lds w/i&r Veronica Liz MD Work Phone: Start: 85-88-1199Xiclnxk blood reagent stripJamal Chirri DO Work Phone: Start: 48-41-7018Odfbx metabolic panel calcium total Adina Christianman [employer]NER - RETAIL HELPER Work Phone: Start: 28-84-2086Nkjnpew blood reagent stripJamal Chirri DO Work Phone: Start: 12-03-2021 End: 95-86-6049Atoyy of osmolality urineMohammad I Mashaleh DO Work Phone: Start: 05-69-1165Uabqfez blood reagent stripJamal Chirri DO Work Phone: Start: 71-52-0180Vwhtn metabolic panel calcium total Adina Do HA[employer]NER - RETAIL HELPER Work Phone: Start: 08-13-4710Ljqqche blood reagent stripJamal Chirri DO Work Phone: Start: 78-05-2495Jneuvbk blood reagent stripJamal Chirri DO Work Phone: Start: 78-51-9650Jra routine ecg w/least 12 lds trcg only w/o i&rJeffrey P Blood DO Work Phone: Start: 40-65-5413Xveqjkm blood reagent stripJamal Chirri DO Work Phone: Start: 12-02-2021 End: 90-24-2733Cheac of troponin Caitlin Holguin MD Work Phone: Start: 31-11-8504Ctctb of Loyd Holguin MD Work Phone: Start: 31-06-1008Kqi routine ecg w/least 12 lds i&r onlyJamal Chirri DO Work Phone: Start: 35-79-8691Gfvoe dip stick/tablet reagent auto microscopyDebbie Villalobos MD Work Phone: Start: 50-65-0456Zspkycy blood reagent stripJamal Chirri DO Work Phone: Start: 35-68-1041Gvnbvlc blood reagent stripJamal Chirri DO Work Phone: Start: 26-20-9473Btvvzga blood reagent stripJamal Chirri DO Work Phone: Start: 98-67-2514Fobvzqa blood reagent stripJamal Chirri DO Work Phone: Start: 79-65-2340Mrovsfx blood reagent stripJamal Chirri DO Work Phone: Start: 46-49-7415Vsfiv metabolic panel calcium total Amanda Garcia HAIR [employer]NER - RETAIL HELPER Work Phone: Start: 90-62-1971Xhzxfhp blood reagent stripJamal Chirri DO Work Phone: Start: 35-95-9955Kqmi tthrc r-t 2d w/wom-mode compl spec&colr Yina Cabrera MD Work Phone: Start: 03-97-4725Tobrhhi blood reagent stripJamal Chirri DO Work Phone: Start: 11-30-2021 End: 37-26-8759Dfnbk metabolic panel calcium totalAmanda Garcia HAIR SPINNER - RETAIL HELPER Work Phone: Start: 06-77-0131Juhgvag blood reagent stripJamal Chirri DO Work Phone: Start: 58-15-2741Heluord blood reagent Rose Velázquez MD Work Phone: Start: 20-97-1939Ldj routine ecg w/least 12 lds i&r onlyMarilu Atkins HAIR SP[employer]NER - RETAIL HELPER Work Phone: Start: 84-72-0569Dqbrqff blood reagent Rose Velázquez MD Work Phone: Start: 46-86-4912Frobz of Talat Velázquez MD Work Phone: Start: 57-32-5860Du head/brain w/o contrast material Isidro Mehta MD Work Phone: Start: 32-61-3442Oljfxgc blood reagent Rose Velázquez MD Work Phone: Start: 43-21-6967Hidry metabolic panel calcium total Amanda Arroyo Garcia HAIR SP[employer]NER - RETAIL HELPER Work Phone: Start: 84-61-9101Smmmeaf blood reagent Rose Velázquez MD Work Phone: Start: 44-90-4229Vdkeylj blood reagent Rose Velázquez MD Work Phone: Start: 58-22-7519Fjfgqzj blood reagent Rose Velázquez MD Work Phone: Start: 74-95-4348Tbfiete blood reagent Rose Velázquez MD Work Phone: Start: 42-00-8349Ugpfmeg blood reagent Rose Velázquez MD Work Phone: Start: 44-93-9090Ccu brain brain stem w/o w/contrast materialChreinier Mehta MD Work Phone: Start: 67-07-6454Sgauo of Talat Velázquez MD Work Phone: Start: 11-86-9652Ruyzm panelNeal Velázquez MD Work Phone: Start: 11-28-2021 End: 27-89-7618HSWWTYD, BLOOD 1Pdamián Velázquez MD Work Phone: Start: 71-89-4273Tu angiography neck w/contrast/noncontrastChrisperi Mehta MD Work Phone: Start: 08-99-0774Zn head/brain w/o contrast material Isidro Mehta MD Work Phone: Start: 53-52-0905Unezb metabolic panel calcium total Neal Velázquez MD Work Phone: Cataract surgeryCharles P House Work Phone: ColonoscopyCharles P House Work Phone: Elbow joint operationsCharles P House Work Phone: Operation on gallbladderCharles P House Work Phone: Procedure on backCharles P House Work Phone: TonsillectomyCharles P House Work Phone: VasectomyCharles P House Work Phone: Plan of Treatment DateCare ActivityDetailAuthorStart: 06-08-2025 End: 00-02-4649Tnfvxbk encounter fwrdcyvro56/19/2026 3:00 PM EDT Office Visit [address] [place] [address] [place] [address] Veronica Liz MD 7[address] [facility], [place] [address] [place] [address] [facility]Start: 01-26-2025 End: 67-96-8406Mxftyrc encounter cwilxpunz34/06/2025 1:50 PM EST Procedure Visit [facility] [address] [facility] [address] [place] [address] Marciano Hi DPM [address] [facility] 5 [place] [address] NOMS CI PODIATRYStart: 42-70-9583Kbjlojfc identified in Urine by CultureUrine CultureBluffton Hospitaltart: 12-15-2024 Urine cultureBluffton Hospitaltart: 11-23-2024 End: 24-52-0563TZE 12 LeadECG 12 Lead ECG Routine High risk medication use Persistent atrial fibrillation (Multi) Expected: 11/23/2024 (Approximate), Expires: 11/09/2025[facility] Service Area Work Phone: Comment on above:Expected: 11/23/2024 (Approximate), Expires: 11/09/2025Start: 11-23-2024 End: 83-06-6526Gwihmqrhfvjp / ancillary services rucdrklwyu49/03/2025 2:00 PM EDT Ancillary Procedure [address] [address] uh [facility] RexStart: 10-21-8444NJEQG-19 Vaccine ( season)COVID-19 Vaccine ()[facility] Start: 21-47-2454Mndzctxxn vaccinationInfluenza Vaccine (#1)[facility] HospitalStart: 11-09-2024 End: 02-97-1114DQX 12 LeadUHHS Service Area Work Phone: Comment on above:Expected: 11/09/2024 (Approximate), Expires: 10/26/2025Start: 11-09-2024 End: 26-80-2924Ughfomlpseee / ancillary services iurfnevpcm43/20/2025 2:00 PM EDT Ancillary Procedure [address] [address] [facility]Start: 11-03-2024 End: 01-51-8960Vuifftx encounter wkeyamvcz47/14/2025 2:40 PM EDT Procedure Visit [facility] 112 [facility] 120 [place] [address] Marciano Hi DPM [address] [facility] 5 [place] [address] Diabetes 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, unspecified whether terminal worker insulin use (HCC) (Primary Dx); Pain due to onychomycosis of toenails of both feet; Right foot drop; Xerosis cutisNOMS CI PODIATRYComment on above:Diabetes 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, unspecified whether chcf insulin use ([facility]) (Primary Dx); Pain due to onychomycosis of toenails of both feet; Right foot drop; Xerosis cutisStart: 10-26-2024 End: 46-41-8556Latygbr encounter fgzseumsj93/06/2025 2:30 PM EDT Office Visit [address] [place] [address] Veronica Liz MD 703 [facility] 2, [facility] 250 [place] [address] [facility]Start: 08-11-2024 End: 71-71-3247Hfskyct encounter dibxfqiut24/22/2025 2:10 PM EDT Procedure Visit [facility] [address] [facility] [address] [place] [address] Marciano Hi DPDina [address] [facility] 5 [place] [address] NOMS CI PODIATRYStart: 08-03-2024 End: 25-28-2661Msmlwhj encounter kzvthnmif82/14/2025 3:30 PM EDT Office Visit [address] [place] [address] Veronica Liz MD 703 [facility] 2, [facility] 250 [place] [address] [facility]Start: 05-26-2024 End: 46-37-2743Uyrvqfp encounter procedureNOMS CI PODIATRYComment on above: Diabetes 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, unspecified whether terminal worker insulin use ([facility]/HCC) (Primary Dx); Pain due to onychomycosis of toenails of both feet; Right foot drop; Xerosis cutisStart: 03-17-2024 End: 88-15-0339Zwxoqod encounter nzlvdyybe67/26/2024 1:50 PM EST Procedure Visit [facility] [address] [place] [address] [place] [phone] Marciano Hi DPM [address] [address] NOMS CI PODIATRYStart: 03-17-2024 End: 03-88-8913Ofvlirb encounter qczqngqiy67/26/2024 11:50 AM EST Procedure Visit [facility] [address] [place] [address] [place] [phone] Marciano Hi DPM [address] [address] Diabetes 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,unspecified whether terminal worker insulin use (CMS/HCC) (Primary Dx); Pain due to onychomycosis of toenails of both feet; Right foot drop; Xerosis cutisNOMS CI PODIATRYComment on above:Diabetes 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, unspecified whether terminal worker insulin use (CMS/HCC) (Primary Dx); Pain due to onychomycosis of toenails of both feet; Right foot drop; Xerosis cutisStart: 01-28-2024 End: 93-12-8422Cgqvgmw encounter bcpkjyncp95/07/2024 3:10 PM EST Office Visit [facility] [address] [address] Veroinca Liz MD 703 [facility] 2, [facility] 250 [place] [address] [facility]: 01-07-2024 End: 97-15-9348Ywflojq encounter /17/2024 2:00 PM EDT Procedure Visit [facility] [address] [place] [address] [place] [phone] Marciano Hi DPM [address] [address] Onychomycosis (Primary Dx); Pain due to onychomycosis of toenails of both feet; Right foot drop; Xerosis cutisNOMS CI PODIATRYComment on above:Onychomycosis (Primary Dx); Pain due to onychomycosis of toenails of both feet; Right foot drop; Xerosis cutisStart: 04-34-9941WXOKG-19 Vaccine ( season)COVID-19 Vaccine ( season)[facility]: 11-22-2023 Influenza vaccinationUnMartin Memorial Hospital: 07-30-2023 End: 87-09-3195Sgfftra encounter pjenmqbwy32/09/2024 3:00 PM EDT Office Visit [address] [phone] Veronica Liz MD 703 [facility] 2, [address] [address] [facility]: 13-17-7992DUT, Provider: Veronica Liz, Status: Pen, Time: 3:10 PMFUV, Provider: Veronica Liz, Status: Pen, Time: 3:10 [address] [address] [place] Work Phone: Start: 99-20-6048Bxamigvn mellitus screeningDiabetes ScreeningUnMartin Memorial Hospital: 25-81-3238Yarpebtokz A1c ukoduvcljioJ5C test (Diabetic or Prediabetic)[facility]: 67-00-3683Ostns panelLipidsBON [facility]: 24-05-0947QOEXX-19 Vaccine ( season)COVID-19 Vaccine ( season)[facility]: 84-90-4070Tczaewsma vaccinationInfluenza Vaccine (#1)[facility]: 92-24-2143JAV, Provider: Veronica Liz, Status: Pen, Time: 1:30 PMFUV, Provider: Veronica Liz, Status: Pen, Time: 1:30 [facility] 250 DO Work Phone: Start: 87-93-5881JEI, Provider: Veronica Liz, Status: Pen, Time: 1:20 PMFUV, Provider: Veronica Liz, Status: Pen, Time: 1:20 PM[facility] 250 DO Work Phone: Start: 14-91-7461Zkfwxoitxh A1c measurementDiabetes: Hemoglobin X1WLXELNevada Regional Medical CenterStart: 01-27-2022 End: 51-67-7794Xlvouhe encounter zoedohzew39/07/2022 Office Visit Neurology AntoniJasmin lee MD [address] [place] [address] [facility]: 24-07-2340FMHOUBXJ, Provider: SURJIT TIRADO INKER 1,[id number], Status: Pen, Time: 1:30 PM NURSEVST, Provider: SURJIT TIRADO INKER 1,[id number], Status: Pen, Time: 1:30 PM[facility] 250 DO Work Phone: Start: 12-19-2021 End: 15-29-6972SN HEAD WO CONTRASTCT HEAD WO CONTRAST Imaging Routine Cerebrovascular accident (CVA), unspecified mechanism (HCC) Expected: 12/19/2021, Expires: 11/30/2022[facility] Work Phone: comment on above:Expected: 12/19/2021, Expires: 11/30/2022Start: 12-10-2021 End: 78-84-6724Liwrv metabolic 2000 panel - Serum or PlasmaBasic Metabolic Panel Lab Routine Hyponatremia Expected: 12/10/2021, Expires: 01/02/2022[facility] Work Phone: comment on above:Expected: 12/10/2021, Expires: 01/02/2022tart: 18-73-8154XQZ, Provider: Veronica Liz, Status: Pen, Time: 1:30 PMFUV, Provider: Veronica Liz, Status: Pen, Time: 1:30 PM-[facility] 250 DO Work Phone: Start: 56-08-8874Ssutxdsoq vaccinationFlu vaccine (#1) [facility]: 14-61-3435FBB High Risk: (Elderly (60+) or Population) (1 - 1-dose 75+ series)RSV High Risk: (Elderly (60+) or Population) (1 - 1-dose 75+ series)[facility] Start: 09-32-0924IMNIF-19 Vaccine (4 - Booster for Pfizer series)COVID-19 Vaccine (4 - Booster for Pfizer series)[facility]: 03-12-2021 COVID-19 Vaccine (4 - Pfizer series)COVID-19 Vaccine (4 - Pfizer series) [facility]: 87-34-6048Wlgnxezds aortic aneurysm screeningAAA [facility]: 83-13-1442RAG patients and/or patients aged 60+ years (1 - 1-dose 60+ series)RSV patients and/or patients aged 60+ years (1 - 1-dose 60+ series)[facility]: 73-69-8382Kxkuxqsr vaccine (1 of 2)Shingles vaccine (1 of 2)[facility]: 31-75-2288Ftdque Vaccines (1 of 2)Zoster Vaccines (1 of 2)[facility]: 47-03-8491Sboquijrm for malignant neoplasm of colonBon [facility]ours Mary [facility]: 1968 DTaP/Tdap/Td Vaccines (1 - Tdap)DTaP/Tdap/Td Vaccines (1 - Tdap)[facility]: 12-65-5245KUvD/Tdap/Td vaccine (1 - Tdap) DTaP/Tdap/Td vaccine (1 - Tdap)[facility]: 1964 Pneumococcal vaccinationPneumococcal Vaccine (1 of 2 - PCV)[facility]: 71-87-3288Xzpdfhzbhzpy Vaccine: 65+ Years (1 of 2 - PCV) Pneumococcal Vaccine: 65+ Years (1 of 2 - PCV)[facility]Start: 1965 Urine screening for proteinDiabetes: Urine Protein ScreeningNevada Regional Medical Center Start: 82-83-5567Yteprtfi retinal examDiabetic retinal examBON [facility] Hospitalart: 83-38-8493Lypsvtpnk C screeningBON [facility] Hospitalart: 43-27-8465Janylaaxxb ScreenDepression ScreenBON [facility]: 28-77-3661Yohdeeoe foot examinationDiabetic foot examBON [facility] Start: 78-23-2886Xtedmyjl screeningDiabetes: Retinopathy ScreeningNevada Regional Medical CenterStart: 44-21-8487Sskagvvgkluy 65+ years Vaccine (1 - PCV)Pneumococcal 65+ years Vaccine (1 - PCV)[facility]: 75-51-5587Nzjcdpijolgy Vaccine: 65+ Years (1 - PCV)Pneumococcal Vaccine: 65+ Years (1 - PCV)[facility] HospitalSt[facility]: 04-71-3237Ptjjguszwuck Vaccine: 65+ Years (1 of 2 - PCV)Pneumococcal Vaccine: 65+ Years (1 of 2 - PCV)[facility] HospitalStart: 73-47-9178Isamzi Wellness Visit (AWV)Annual Wellness Visit (AWV) [facility]: 49-62-3728Qordv panelLipid PanelUnMercy Health Perrysburg HospitalStart: 08-03-1947Medicare Annual Wellness (AWV)Medicare Annual Wellness (AWV)[facility]: 08-03-1947Medicare Annual Wellness VisitMedicare Annual Wellness Visit (AWV)[facility] End: 44-48-2206Oihsw metabolic 2000 panel - Serum or PlasmaBasic Metabolic Panel Lab Routine Daily for 3 Days starting 12/03/2021 until 12/05/2021, 2 completed [facility] Work Phone: comment on above:Daily for 3 Days starting 12/03/2021 until 12/05/2021, 2 completed End: 72-49-4172FMA W Auto Differential panel - BloodCBC with Auto Differential Lab Routine Daily for 3 Days starting 12/03/2021 until 12/05/2021, 2 completed [facility] Phone: Comment on above:Daily for 3 Days starting 12/03/2021 until 12/05/2021, 2 completedContinuous pulse oximetryPulse oximetry, continuous Respiratory Care Routine Every 4hr until discontinued starting 11/28/2021 [facility] Phone: comment on above:Every 4hr until discontinued starting 11/28/2021Glucose [Mass/volume] in Serum or PlasmaBON [facility] Phone: comment on above:4X Daily (AC & HS) until discontinued starting 11/28/2021s Needed until discontinued starting 11/28/2021xygen therapy [Minimum Data Set]Initiate Oxygen Therapy Protocol Respiratory Care Routine As Needed until discontinued starting 11/28/2021 [facility] Phone: comment on above:As Needed until discontinued starting 11/28/2021 End: 61-56-9901GLT clinical swallow evaluationSLP clinical swallow evaluation PADDED PRODUCTS FINISHER Routine One Time for 1 Occurrences starting 11/28/2021 until 11/28/2021 [facility] Phone: Comment on above:One Time for 1 Occurrences starting 11/28/2021 until 11/28/2021 End: 97-89-5235Iirdpx and language therapy [facility] Language Pathology (PADDED PRODUCTS FINISHER) eval and treat PADDED PRODUCTS FINISHER Routine One Time for 1 Occurrences starting 11/28/2021 until 11/28/2021 [facility] Phone: comment on above:One Time for 1 Occurrences starting 11/28/2021 until 11/28/2021 Immunizations Immunization DateImmunizationNotesCare AxqrrimcYdlerjmn29-28-0062Egzpqp-LzzXJobc COVID-19 Vacc 30 MCG/0.3ML Intramuscular SuspensionCharles P [place] Work Phone: [facility] on above: Series:05-43-0953Agigwd-BioNTech COVID-19 Vacc 30 MCG/0.3ML Intramuscular SuspensionCharles P House Work Phone: [facility]03-01-2021Pfizer- BioNTech COVID-19 Vacc 30 MCG/0.3ML Intramuscular SuspensionCharles P House Work Phone: [facility] on above: Series:40-98-1607ttjtiofkd virus vaccine, unspecified formulationCharles P House Work Phone: [phone]-Xfaft [facility] 250 DO Work Phone: Payers DatePayer CategoryPayerPoly [id number] 2012Medicare [id number] [id number] 1946 [id number] 2.840.1.686260.3.57[id number] 2..1.690979.3.579.[id number] 2.16840.1.111231.3.57[id number] 2.16840.1.895823.3.57[id number] 2.16840.1.333192.3.579.2.64043-65-0296Bmxjbqn6351321 2.840.1.503024.3.579.2.98319-62-6141Stewbku1582687 2.16840.1.944065.3.579.2.75759-11-0735Uibuyqh1867069 2.16840.1.669784.3.579.2.12343-65-0882Mnweafb9799587 2.16840.1.811354.3.579.2.55484-38-5413Ghclcaw0911758 2.16840.1.433389.3.579.[id number] 2.16840.1.737631.3.579.2.62976-05-7136Hxloudf662799771 2.840.1.730949.3.579.2.81966-76-4305Tknptib973594174 2.840.1.067742.3.579.2.28686-08-8345Wkdmwtf364075468 2.840.1.494870.3.579.2.[id number] 2.840.1.203729.3.579.2.04907-48-1522Wddajof39076258 2.840.1.685430.3.579.2.113537-59-8847Nenjrsw4627971 2.840.1.525016.3.579.2.831608-92-2402Veiytjc8100574 2.840.1.751210.3.579.2.602746-64-0358Ojveihz3446099 2.840.1.963608.3.579.2.935995-57-0942Vckkepd0358156 2.16840.1.678048.3.579.2.[id number] 2.840.1.108425.3.579.2.839587-77-2283Ncuszii669273502 2.16.840.1.691165.3.579.2.4538[id number] 2.16.840.1.868295.3.579.2.4[id number] 2.16.840.1.963511.3.579.2.[id number] 2.16.840.1.467128.3.579.2.674942-44-1531Tzquzeg91810036 2.16.840.1.216405.3.579.[id number] 2.16.840.1.650765.3.579.2.727UnknownUnknownHCAP/HFA/FAP [id number] 5ob93802-4461-2267-837y-[id number] 2.16.840.1.891859.3.579.2.531 Social History DateTypeDetailFacilityStart: 01-29-2023 End: 58-06-6977Ql illicit drug useNo illicit drug use-[facility] 250 DO Work Phone: Comment on above:1 BEER OCCASIONALLY;2 CUPS OF COFFEE DAILY;QUIT MAR 2019;Start: 01-29-2023 End: 36-33-2606Pry Assigned At [facility] DaisyBill Other Start: 09-23-2021 End: 57-08-2248Ppnfznt smoking status [facility] Phone: End: 12-89-8142Zjbjywz of tobacco useCurrent [employer] Phone: End: 04-12-6507Ecjjqug of tobacco useCigarette Node Management Phone: start: 12-02-2021 End: 63-59-0998Nzkwahj intakeCurrent drinker of alcohol (finding)[facility] Phone: start: 23-96-8467Iotlsat SDOH Alcohol Vleovsivt7WBE [facility] Phone: start: 87-15-6443Vfyrpbw SDOH Alcohol Std Libryb8VAR [facility] Phone: start: 92-27-3104Khxduyv SDOH Alcohol Commentocc beer [facility] Phone: start: 52-83-5257Uxl Assigned At BirthNot on [facility] Phone: start: 11-18-2021 End: 29-38-8572Gntqjqyl to SARS-CoV-2 (event)Not sureNORTHWEST MEDICAL CENTER [employer] Work Phone: start: 02-45-2546Byh [facility]igned [facility]: 01-29-2023 End: 80-56-0389Ggsdaci use and exposureSmokeless tobacco non-userAvita Health System [facility] Hospital Work Phone: Start: 27-30-0068Emwhhva CommentoccasionallyUnMercy Health [facility] Work Phone: Start: 68-04-2651Viygpee smoking status NHISTobacco smoking consumption unknownNOMT HealthcareStart: 87-52-0217Tjiwcki Commentcoffee dailyNOMT HealthcareStart: 95-35-5046VthLtbqOebcwqmlcmUniversity Hospitals Portage Medical CenterSex Male (finding)[facility] CenterNEGATED: Highlighted rowStart: NINFHistory of tobacco usePassive smokerPARK CITY HOS[facility]ITAL Healthcare Medical Equipment Procedure CodeEquipment CodeEquipment Original TextEquipment IdentifierDates Capsule endoscopy, for patency of lumen evaluationVideo capsule endoscopy system ()[id number] FDAStart: 17-59-6369Jfnmeyu artery closure plug/patch, synthetic [id number] FDAStart: 03-31-2019 Clinical Notes 08-26-2021 to 01-30-2025 Note Date & HfutXefeEtcperdv57-56-0297 NoteAddendum created 01/30/25 164 by Bishnu Viera MD Intraprocedure Meds editedUnMansfield Hospital11-10-2025 Note Patient: Shahrzad Edgar Procedure Summary Date: 01/30/25 Room / Location: [facility] Main Operating Room; [facility] X-Ray Imaging Anesthesia Start: 958 Anesthesia Stop: 1132 Procedures: BRONCHOSCOPY FL IN OR FL IN OR Diagnosis: Lung mass Pain Scheduled Providers: Josefa Christopher MD; Saurabh Nick MD; Bishnu Viera MD Responsible Provider: Saurabh Nick MD Anesthesia Type: general ASA Status: 3 Anesthesia Type: general Vitals Value Taken Time BP 113/60 01/30/25 11:45 Temp 36 ???C (96.8 ???F) 01/30/25 11:28 Pulse 94 01/30/25 11:57 Resp [...] were no known notable events for this encounter.[facility]11-10-2025 NoteAirway Date/Time: 01/30/2025 10:08 AM Reason: elective Airway not difficult General Information and Staff Patient location during procedure: OR Anesthesiologist: Saurabh Nick MD Resident/ROUSTABOUT CREW/CAA: Bishnu Viera MD Performed: resident/ROUSTABOUT CREW/CAA Learner assisted: 3 Lokesh Jade assisted with bagging and intubation. Patient [...] approach: 1 Number of other approaches attempted: 0[facility] 01-30-2025 NoteInterventional Pulmonology Consult Patient : Shahrzad Edgar : 1945 Location: No information available for [...] He denies any fevers or chills, chest pain or shortness of breath, neck pain, nausea or vomiting. Assessment: Left upper lobe lesion Tobacco use, over 92-gxge-oxga history Atrial fibrillation History of TIA Hypertension [...] on file Intimate Partner Violence: Unknown (05/14/2023) MD Safety & Environment Fear of Current or [...] ABG/VBG: No results found for: PHART , YLM9BUT , PO2ART , RPV9WNW , IONCALART No results found for: PHVEN , NZM3ODI , PO2VEN , AXB4UWF , IONCALVEN CBC: Coagulation: Metabolic Panel: No [...] along with the associated risk of pneumothorax, bleeding, hypoxia, and respiratory failure. Patient is agreeable and will proceed with the scheduled bronchoscopy and TBBx Josefa Christopher MD Interventional Pulmonary Medicine Pulmonary and Critical Care Medicine [facility] [1] Past Medical History: Diagnosis Date Afib ([facility]) Anemia Arthritis COPD (chronic obstructive pulmonary disease) ([facility]/HCC) Diabetes mellitus ([facility]) Hilar mass History (more content not included)...[facility] 01-30-2025 NotePatient: Shahrzad Edgar Procedure Information Date/Time: 01/30/25 1000 Scheduled providers: Josefa Christopher MD; Saurabh Nick MD; Bishnu Viera MD Procedures: BRONCHOSCOPY FL IN OR Location: [facility] Main Operating Room Relevant Problems No relevant active problems Clinical information reviewed: Tobacco Meds Problems Med Hx Surg Hx Fam Hx Soc Hx Physical Exam Airway Mallampati: II TM distance: >3 FB Neck ROM: full Cardiovascular Rhythm: irregular Dental (+) edentulous Pulmonary Neurological Abdominal Other findings: Quit smoking March,; 6' 1 , 79.7 kg; Afib; has not been on blood thinner for several years - was d/c'd since he had [...] products. Plan discussed with resident. Additional Equipment RequestsFostoria City Hospital2025 Note ED Patient Education Note Nephrology Acute Kidney Injury, [...] these instructions at home: Medicines ??? Take gnwe-iva-ovqmrzw and prescription medicines only as told by [...] your kidneys. Where to find support ??? [employer] Patients: aakp.org ??? [employer]: akfinc.org Where to find more information ??? National Kidney Foundation: k (more content not included)...[facility]09-03-2025 History of Present illness Narrative* Kristin Mcmanus [...] m (6' 1 ) documented in this [facility] Work Phone: 1(824) 228-473408-20-2025 History of Present illness Narrative* Clyde Yoo [...] done in office today documented in this [facility] Work Phone: 1(164) 454-896508-06-2025 History of Present illness Narrative* Veronica Liz [...] Scribe Attestation By signing my name below, IEvelina RN , Scribe attest that this documentation [...] plan. documented in this encounterAvita [facility] Work Phone: 1(510) 898-289508-06-2025 Instructions* Patient Instructions* Evelina Yoder RN - [...] three times a day documented in this encounterAvita Health System [facility] Work Phone: 1(862) 433-741003-06-2025 History of Present illness Narrative* Marciano Hi [...] has periodically been using prescribed or recommended psqq-vut-narmdrg cream with negative improvement. Patient also states he had cold exposure for many years to his feet Patient has history of right foot drop secondary to spinal surgery in the past and refused AFO rx in the past. Allergies: No Known Allergies Past Medical History: Past Medical History: Diagnosis Date Diabetes ([facility]) Medications: Current Outpatient Medications: aspirin [...] and negative PT pedal pulses NEURO: 5.07 Chama Nacho monofilament test diminished to digits and forefoot bilaterally 125Hz tuning fork diminished to 1st MPJ bilaterally ORTHO: Positive pain on palpation to toenails of the left 1,2,3,4,5 toes and right 1,2,3,4,5 toes +4/5dorsiflexion right ankle ASSESSMENT 1. Diabetes 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, unspecified whether chcf insulin use ([facility]) 2. Pain due to onychomycosis [...] . Patient states that he will use lvna-aca-fgujglf creams as necessary Marciano Hi DPM documented in this encounterNevada Regional Medical CenterIrbsrqrqde96-07-2852 History of Present illness Narrative* Veronica Liz [...] with TIA. He was at [facility]. He underwent evaluation and was seen [...] on the review of the record from [place]. He was asked To see me to [...] my direction and personally dictated by me. Price reviewed the chart and agree that the record accurately reflects my personal performance of the history, physical exam, discussion and plan. documented in this [facility] Work Phone: 1(847) 892-756501-29-2025 Instructions* Patient Instructions* Shaina Floyd LPN - [...] 6 months Declines anticoagulation. documented in this [facility] Work Phone: 1(396) 457-477512-26-2024 History of Present illness Narrative* Marciano Hi [...] has periodically been using prescribed or recommended zkyo-wpm-zkpgabn cream with negative improvement. Patient also states he had cold exposure for many years to his feet Patient has history of right foot drop secondary to spinal surgery in the past and refused AFO rx in the past. Allergies: No Known Allergies Past Medical History: Past Medical History: Diagnosis Date Diabetes ([facility]) Medications: Current Outpatient Medications: aspirin [...] and negative PT pedal pulses NEURO: 5.07 Chama Nacho monofilament test diminished to digits and forefoot bilaterally 125Hz tuning fork diminished to 1st MPJ bilaterally ORTHO: Positive pain on palpation to nails 1 through 10 +4/5dorsiflexion right ankle ASSESSMENT 1. Diabetes 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, unspecified whether terminal worker insulin use ([facility]) 2. Pain due to onychomycosis [...] . Patient states that he will use mwot-brm-jrexfed creams as necessary Marciano Hi DPM documented in this encounterNevada Regional Medical CenterQhcxgofnxc23-68-9027 History of Present illness Narrative* Veronica Liz [...] fibrillation. Last time he was back in A-count includes the [facility] but repeat EKG today he is [...] Scribe Attestation By signing my name below, Carline Hsu LPN, Scribe attest that this documentation has been prepared under the direction and in the presence of MD Latasha. Provider Attestation - Scribe documentation All medical record entries made by the Scribe were at my direction and personally dictated by me. Iheunice reviewed the chart and agree that the record accurately reflects my personal performance of the history, physical exam, discussion and plan. documented in this encounterAvita [facility] Work Phone: 1([phone]) 220-368411-07-2024 Instructions* Patient Instructions* Carline López LPN - [...] through Care Everywhere. * Heart Healthy Diet (Moldovan) documented in this encounterAvita Health System [facility] Hospital Work Phone: 1([phone]) 399-764710-17-2024 History of Present illness Narrative* Marciano Hi [...] has periodically been using prescribed or recommended snvx-zcn-jfozjln cream with minimal improvement. Patient also states he had cold exposure for many years to his feet Patient has history of right foot drop secondary to spinal surgery in the past and refused AFO rx in the past. Allergies: No Known Allergies Past Medical History: Past Medical History: Diagnosis Date Diabetes ([facility]) Medications: Current Outpatient Medications: aspirin [...] and negative PT pedal pulses NEURO: 5.07 Chama Nacho monofilament test diminished to digits and [...] . Patient states that he will use dkyo-trz-stzbtnh creams as necessary Marciano Hi DPM documented in this encounterNevada Regional Medical CenterJfzpyceqcj16-73-0508 History of Present illness Narrative* Veronica Liz [...] plan. documented in this encounterAvita [facility] Hospital Work Phone: 1(728) 697-993405-09-2024 Instructions* Patient Instructions* Shaina Floyd LPN - [...] 6 months with ekg documented in this encounterAvita [facility] System [facility] Work Phone: [phone]) [phone] History of Present illness Narrative* Veronica Liz [...] today documented in this encounterAvita Health System [facility] Hospital Work Phone: 1([phone]) 618-432811-09-2023 Instructions* Patient Instructions* Clyde Nunez MA - [...] time of your visit. documented in this encounterAvita Health System [facility] Hospital Work Phone: 1(209) 534-863503-16-2023 History of Present illness Narrative* Yesterday OV [...] retrieve retrieve his record from [place] [address] DO Work Phone: 1(618) 366-760509-13-2022 History of Present illness Narrative* Valerie Del Toro, ELLIOT - RETAIL HELPER - 12/03/2021 10:12 AM EDT Images from the original note were not included. [facility] Progress Note Date: 12/03/2021 Patient name: Shahrzad [...] Patient Active Problem List: Cerebrovascular accident (CVA) ([facility]) Otitis media with effusion, left PAF (paroxysmal atrial fibrillation) ([facility]) Anemia Atrial fibrillation with RVR (HCC) Primary hypertension Type 2 diabetes mellitus without complication, without long-term current use of insulin (HCC) COPD (chronic obstructive pulmonary disease) ([facility]) [id number] Score for Atrial Fibrillation Stroke Risk Risk Factors Component Value C CHF No 0 H HTN Yes 1 A2 Age >= 75 Yes, (76 y.o.) 2 D DM Yes 1 S2 Prior Stroke/TIA No 0 V Vascular Disease No 0 A Age 65-74 No, (76 y.o.) 0 Sc Sex male 0 [id number]-SDCo Score 4 Score last updated 12/03/21 10:13 [...] Please call with further questions or concerns [facility]. [phone] * Jasmin Corrales MD - 12/03/2021 8:49 AM EDT [facility] Neurology IN-PATIENT SERVICE [facility] Progress Note Date: 12/03/2021 Patient name: Shahrzad Edgar Date of admission: 11/28/2021 3:15 AM Account: [id number] Date of : 1945 PCP: No primary care provider on file. Room: [address] [place] [address] Code Status: Full Code Chief Complaint: Right [...] He is eager to be discharged to [facility]. Patient counseled regarding treatment follow-up plan, expressed [...] with dizziness. Initially evaluated at [facility] and later transferred to [facility] after CT head was done showing an [...] ms QTc Calculation (Bazett) 516 ms R [place] 23 degrees T [place] 48 degrees POC Glucose Fingerstick Collection Time: [...] 1.07 (L) 1.10 - 3.70 k/uL Absolute Centre # 1.20 0.10 - 1.20 k/uL Absolute [...] Assessment : Primary Problem Cerebrovascular accident (CVA) ([facility]) Active Hospital Problems Diagnosis Date Noted Atrial fibrillation with RVR ([facility]) [I48.91] 12/02/2021 Priority: Medium Type 2 diabetes mellitus without complication, without long-term current use of insulin ([facility]) [E11.9] 12/02/2021 Priority: Medium Primary hypertension [I10] 12/02/2021 Priority: Medium COPD (chronic obstructive pulmonary disease) ([facility]) [J44.9] 12/02/2021 Priority: Medium PAF (paroxysmal atrial fibrillation) ([facility]) [I48.0] 11/29/2021 Priority: Medium Anemia [D64.9] 11/29/2021 Priority: Medium Cerebrovascular accident (CVA) ([facility]) [I63.9] 11/28/2021 Priority: Medium Otitis [...] medical management PT/OT/ST Plan for discharge to [facility] today Follow-up further recommendations after discussing the [...] history and exam findings with the resident/ RETAIL HELPER. I reviewed medications, clinical labs, x-rays and other diagnostic tests with the resident/ RETAIL HELPER. I have seen and examined the patient and the lamas elements of the encounter have been performed by me. I agree with the assessment, plan and orders as documented by the resident or RETAIL HELPER. Impression and Plan: Mr. Shahrzad Edgar is [...] the original note were not included. [facility] Office: [phone] Darrius Mattson DO, Valente Kaur DO, Noel [...] Potter CNP, Adrienne Domingo, MIYA, Marissa Hamilton, LAURENCE, Lida Soto, RETAIL HELPER, Rosmery Bryan, RETAIL HELPER, Cici Antoine, RETAIL HELPER, Leslie Chen, RETAIL HELPER, Lalito Baker, PA-C, Kathy Wilder, BILLET GRINDER, Janet Bar, MIYA, Triny Francois, LAURENCE, Mary Ortiz CNP, Sue Rivera CNP [facility] IN-PATIENT SERVICE [facility] Progress Note 12/03/2021 8:19 AM Name: Shahrzad Edgar Acct: [id number] Room: 0122/0122-01 Day: 5 Admit Date: 11/28/2021 [...] (37 C) Recent Labs 12/02/21 0857 12/02/21 12012/02/21165412/02/212052 POCGLU 188* 197* 220* 164* I/O (24Hr): No intake or output data in the 24 hours ending 12/03/21 0819 Labs: Hematology: Recent Labs 12/01/21 03512/03/21 0407 WBC 15.0* 11.0 RBC 5.11 4.25 HGB 15.6 13.1 HCT 45.2 37.0* MCV 88.5 87.1 MCH 30.5 30.8 MCHC 34.5 35.4* RDW 13.8 13.7 PLT 235 223 MPV 9.6 10.6 Chemistry: Recent Labs 12/01/21 03512/02/21 0316 12/02/21 0837 12/03/21 0407 NA 132* [...] -- 15 15 -- Recent Labs 12/01/21 18112/01/21202212/02/21 0857 12/02/21 1201 12/02/21165412/02/212052 POCGLU 129* 132* 188* 197* 220* 164* ABG:No results found for: POCPH, PHART, PH, POCPCO2, OED0NSP, PCO2, POCPO2, PO2ART, PO2, POCHCO3, XLF8ESW, HCO3, NBEA, PBEA, BEART, BE, THGBART, THB, EKA3KGM, POFT4GPQ, K0GRTFPP, O2SAT, FIO2 Lab Results Component Value Date/Time [...] range) infarct in the region of right W3zqquevre division with petechial hemorrhage in areas along [...] range) infarct in the region of right W0ejnmityl division with petechial hemorrhage in areas along [...] Modified POA * (Principal) Cerebrovascular accident (CVA) ([facility]) 11/30/2021 Yes Otitis media with effusion, left 11/28/2021 Yes PAF (paroxysmal atrial fibrillation) ([facility]) 12/02/2021 Yes Anemia 11/29/2021 Yes Atrial fibrillation with RVR ([facility]) 12/02/2021 No Primary hypertension 12/02/2021 Yes Type 2 diabetes mellitus without complication, without long-term current use of insulin ([facility]) 12/02/2021 Yes COPD (chronic obstructive pulmonary disease) ([facility]) 12/02/2021 Yes Plan: Middle ear [...] 12/02/2021 3:22 PM EDT Physical Therapy Facility/Department: [address] NEURO ICU Daily Treatment Note NAME: [...] verbally reminded to do so; able to writing tutor margie stedy with max A+1, again leans [...] with least restrictive AD Additional Goals?: No Fpc Goals Additional Goals?: No Education Patient Education Education Given To: Patient Education Provided: Role of Therapy;Plan of Care;Precautions;Transfer Training;Fall Prevention Strategies Education Method: Demonstration;Verbal;Teach Back Barriers to Learning: Cognition Education Outcome: Continued education needed Therapy Time Individual Concurrent Group Co-treatment Time In 1411 Time Out 1521 Minutes 70 Timed Code Treatment Minutes: 47 Minutes Zach Thakur, PT * Sheri Serna - 12/02/2021 12:50 PM EDT Speech Language Pathology Speech Language Pathology [facility] Cognitive and Speech Treatment Note Date: 12/02/2021 Patient s Name: Shahrzad Edgar Diagnosis: Patient Active Problem List Diagnosis Code Cerebrovascular accident (CVA) ([facility]) I63.9 Otitis media with effusion, left H65.92 History of atrial fibrillation Z86.79 Anemia D64.9 Pain: 0/10 Cognitive Treatment Treatment time: 4903-0589 Subjective: [x] Alert [x] Cooperative [] Confused [] Agitated [] Lethargic Objective/Assessment: Recall: Delayed Recall - Associated Lists: 11/29 independently Organization: Category Members - [place]: 12 increased to 12/12 with mod verbal cue Problem Solving/Reasoning: Word [...] recommended at discharge. Completed by: Sheri Serna Digital Associate Clinician Cosigned By: Ayla White M.S.CCC/PADDED PRODUCTS FINISHER * Evelin Griffin RN - 12/02/2021 8:59 AM EDT [facility] Documentation Note Admission Dx: Brain mass [G93.89] Past Medical History: has a past medical history of Arthritis, COPD (chronic obstructive pulmonary disease) (HCC), Diabetes mellitus (HCC), History of blood transfusion, and Hypertension. Previous Testing: ECHO 11/30/2021: EF 54%, negative bubble study, no valvular abnormalities. Previous office/hospital visit: None JUAN [employer] * Zena Irby MD - 12/01/2021 11:32 [...] Patient was initially evaluated at [facility] and noted to have left upper [...] prior to transfer over. Upon arrival at [place], patient's blood pressure was normotensive. Evaluated [...] Data: Lab Results: CBC: Recent Labs 11/29/2146 11/30/21 0812/01/21 0352 WBC 19.0* 13.7* 15.0* HGB 13.6 [...] started at that time. Continue on Statin PT/OT/PADDED PRODUCTS FINISHER Urinary retention - will obtain urology consulation [...] Echo was completed at the bedside. * OC SELFHER - 11/30/2021 2:49 PM EDT Physical Therapy Facility/Department: [address] NEURO ICU Daily Treatment Note Name: [...] with R UE. OutComes Score AM-PAC Score AM-[facility] Inpatient Mobility Raw Score : 8 (11/30/211436) [...] with least restrictive AD Additional Goals?: No Chemical Dependency Professional Goals Additional Goals?: No Education Patient Education Education Given To: Patient Education Provided: Role of Therapy;Plan of Care Education Method: Demonstration;Verbal Barriers to Learning: Cognition Education Outcome: Continued education needed;Demonstrated understanding Therapy Time Individual Concurrent Group Co-treatment Time In 1412 Time Out 1435 Minutes 23 Timed Code Treatment Minutes: 23 Minutes LITTLE SELF PTA * ELLIOT Lara CNP - 11/30/2021 11:27 AM EDT Neurology Nurse [...] who was admitted as a transfer from [facility] on 11/28/2021 for R temporal headache. Patient reported he had developed right temporal headache and dizziness on the day of arrival. Excedrin did not help. He was seen by his resource management planner and was told that his BP was elevated; he was started on lisinopril 5 mg daily. He was initially evaluated at [facility]. Patient was noted to have left [...] IVPB x1 prior to be transferred to [facility] for higher level of care. Patient was [...] to ensure the accuracy of this automated melon packer, some errors in melon packer may have occurred. Associated attestation - Allan [...] Robbins RN - 11/30/2021 6:52 AM EDT 2215 new orders received Mag and extra strength tylenol to treat headache clarified and admin per orders Irregular hr noted this am * Marita Robbins RN - 11/29/2021 9:05 PM EDT Pt has a headache 9/10 pain, per pt tylenol ordered doesn't help at all. Neuro MD notified * Benita Quezada OT - 11/29/2021 5:44 PM EDT Occupational Therapy Facility/Department: [address] NEURO ICU Occupational Therapy Initial Assessment [...] use in appartment) Transfer Assistance: Independent Active Lens Block Gauger: Yes Mode of Transportation: Car Occupation: Retired Leisure & Hobbies: Phonitive - Touchalizeino Objective Safety Devices Type of Devices: All [...] 11/29/2021 3:46 PM EDT Physical Therapy Facility/Department: [address] NEURO ICU Physical Therapy Initial Assessment [...] exact time). He was initially evaluated at [facility]. Patient was reported to have been at resource management planner earlier today, and BP was elevated, but patient unable to state how elevated. No improvement with Excedrin. Patient denies any other blood thinners aside from aspirin. [facility] noted to have clear [...] did have purulent material. [facility] area of hypoattenuation in right [...] use in appartment) Transfer Assistance: Independent Active Lens Block Gauger: Yes Mode of Transportation: Car Occupation: Retired [...] with least restrictive AD Additional Goals?: No Chemical Dependency Professional Goals Additional Goals?: No Education Patient Education [...] Patient's name: Shahrzad Edgar Patient's account/billing number: [id number] Patient's Date of : 1945 Age: 76 y.o. Date of Admission: 11/28/2021 3:15 AM Length of stay during current admission: 1 Primary Care Physician: No primary care provider on file. Code Status: Full Code Mode of physician to physician communication: [] Via telephone [x] In person Date and time of sign-out: 11/29/2021 2:50 PM Accepting Neurology EMERGENCY OPERATOR: Adina Do NP Accepting team's attending: [...] EDT Speech Language Pathology Speech Language Pathology [facility] Dysphagia Treatment Note Date: 11/29/2021 Patient s Name: Shahrzad Edgar Diagnosis: dysphagia Patient Active Problem List Diagnosis Code Brain mass G93.89 Right middle cerebral artery stroke (HCC) I63.511 Otitis media with effusion, left H65.92 Pain: 0/10 Dysphagia Treatment Treatment time: 458- Subjective: [x] Alert [x] Cooperative [] Confused [] Agitated [] Lethargic Objective/Assessment: Pt. Seen for repeat BSSE. Pt. Provided with Soft Solids, Puree, Thin and Convent thick trials. Pt. With no overt s/s [...] discharge. Treatment completed by: ROBBY Hall, M.S. 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 Completed by: Sheri Serna Digital Associate Clinician Cosigned By: Ayla White M.S.CCC/PADDED PRODUCTS FINISHER * Joseph Mcdonnell, PT - 11/29/2021 9:28 [...] Name: Shahrzad Edgar Patient : 1945 Room/Bed: [address] [place] [address] Code Status: Full Code Allergies: Allergies Allergen [...] Guevara Kaur DO Neuro Critical Care Pager [phone] 11/29/2021 6:48 AM Associated attestation - Neal [...] prophylaxis. Maintain SBP < 160. Incentive spirometry. PADDED PRODUCTS FINISHER eval. PT/OT. Insulin sliding scale. Stepdown. Discharge planning. I independently reviewed all labs, imaging and EKG tracings * ROBBY Hall - 11/28/2021 3:02 PM EDT Speech Language Pathology Facility/Department: [address] NEURO ICU CLINICAL BEDSIDE SWALLOW EVALUATION [...] exact time). He was initially evaluated at [facility]. Patient was reported to have been at resource management planner earlier today, and BP was elevated, but patient unable to state how elevated. No improvement with Excedrin. Patient denies any other blood thinners aside from aspirin. [facility] noted to have clear speech, [...] did have purulent material. CT head from [facility] showed area of hypoattenuation in right [...] prior to transfer to Neuro ICU at [place]. Pain: Pain Assessment Pain Assessment: 0-10 [...] with partial PO only Treatment Plan Requires PADDED PRODUCTS FINISHER Intervention: Yes D/C Recommendations: Ongoing speech therapy [...] Patient Education Response: Needs reinforcement Therapy Time [id number] ROBBY Hall 11/28/2021 3:02 PM * Sheri Serna - 11/28/2021 1:30 PM EDT Speech Language Pathology Facility/Department: [address] NEURO ICU Initial Speech/Language/Cognitive Assessment NAME: [...] exact time). He was initially evaluated at [facility]. Patient was reported to have been at resource management planner earlier today, and BP was elevated, but patient unable to state how elevated. No improvement with Excedrin. Patient denies any other blood thinners aside from aspirin. [facility] noted to have clear [...] did have purulent material. [facility] area of hypoattenuation in right [...] prior to transfer to Neuro ICU at [place]. Pain: Pain Assessment Pain Assessment: 0-10 [...] noted deficits. Education provided. Recommendations: Recommendations Requires PADDED PRODUCTS FINISHER Intervention: Yes Patient Education: yes Patient Education [...] With: Friend(s) Type of Home: Apartment Active Lens Block Gauger: Yes Vision Vision: Within Functional Limits Hearing [...] 1058 Minutes 12 Completed by: Sheri Serna Digital Associate Clinician Cosigned By: Ayla White M.S.CCC/PADDED PRODUCTS FINISHER * Raymundo Celena, [facility] - 11/28/2021 6:36 AM EDT [facility] Pharmacokinetic Monitoring Service - Vancomycin [...] 11/28/2021 6:35 AM documented [facility] Phone: 1(221) 563-621809-12-2022 Hospital Discharge instructions* Discharge Instr - NORMA* Reese Schofield RN - 12/02/2021 2:45 PM EDT Continuity of Care Form Patient Name: Shahrzad Edgar : 1945 Admit date: 11/28/2021 Discharge date: 12/03/2021 Code Status Order: Full Code Advance Directives: Admitting Physician: Allan Pemberton DO PCP: No primary care provider on file. [facility]charging [facility]122/0122-01 Discharging Unit Phone Number: [phone] Emergency Contact: Extended Emergency Contact Information Primary Emergency Contact: nadine allen Relation: Other Preferred language: Moldovan Openstack Developer needed? No Past Surgical History: No past surgical history on file. Immunization History: Immunization History Administered Date(s) Administered COVID-19, PFIZER PURPLE top, DILUTE for use, (age 12 y+), 30mcg/0.3mL 05/21/2020, 06/12/2020, 01/15/2021 Active Problems: Patient Active Problem List Diagnosis Code Cerebrovascular accident (CVA) ([facility]) I63.9 Otitis media with effusion, [...] Assisted Dressing Assisted Toileting Independent Feeding Independent Sterilization Specialist Independent Med Delivery whole Wound Care Documentation [...] Dysphagia soft Routes of Feeding: Oral Liquids: Convent Thick Liquids Daily Fluid Restriction: 1500 Last [...] Readmission: 13 [facility] Address: Phone: Fax: Dialysis Facility (if applicable) Name: Address: Dialysis Schedule: Phone: Fax: Management Specialist/Head Of Mobile signature: PHYSICIAN SECTION Prognosis: {Prognosis:5453035061} Condition at Discharge: {MH Patient Condition:857264255} Rehab Potential (if transferring to Rehab): {Prognosis:3587282113} Recommended Labs or Other Treatments After Discharge: Physician Certification: I certify the above information and transfer of Shahrzad Edgar is necessary for the continuing treatment of the diagnosis listed and that he requires {Admit to Appropriate Level of Care:40057} for {GREATER/LESS:707091436} 30 days. Update Admission H&P: {CHP DME Changes in HandP:492295232} PHYSICIAN SIGNATURE: * Attachments The following attachments cannot be sent through Care Everywhere. * Statins (Moldovan) * Ischemic Stroke: General Info (Moldovan) * Stroke: Symptoms: General Info (Moldovan) * Diabetes: Heart Attack and Stroke Risk: General Info (Moldovan) [facility] [employer] Work Phone: 1(233) 848-549006-28-2022 Evaluation note* Encounter Date Diagnosis Assessment Notes Treatment Notes Treatment Clinical Notes Aug, Left hand pain (ICD-10 - M79.642 ) Aug,losed displaced fracture of proximal phalanx of left little finger with routine healing, subsequent encounter (ICD-10 - S62.617D)Radiographs reviewed with patient today. Discussed with patient to work on range of motion exercises [employer] Other 06-09-2022 Evaluation note* Encounter Date Diagnosis Assessment Notes Treatment Notes Treatment Clinical Notes Aug, Left hand pain (ICD-10 - M79.642 ) Aug,losed displaced fracture of proximal phalanx of left [...] and elevate to decrease pain and swelling. [employer] Other 06-06-2022 NotePROCEDURE: XR HAND LT MIN 3V COMPARISON: None. HISTORY: Pain FINDINGS: BONES:Subtle contour deformity identified at the base of the fifth proximal phalanx. No dislocation. Mild degenerative changes. SOFT TISSUES:Negative. No visible soft tissue swelling. EFFUSION:None visible. OTHER: Negative. IMPRESSION: Suspected nondisplaced fracture base of the fifth proximal phalanx Electronically authenticated by: REINA GO Date: 2021-08-26 10:45[facility] Diagnosis Cerebrovascular accident (CVA), unspecified mechanism [...] (HCC) Intracerebral hemorrhage documented in this encounter [facility] Work Phone: evaluation noteNo assessment information available [facility] Work Phone: Evaluation note* Diagnosis Single vessel coronary disease- Primary Essential hypertension Unspecified essential hypertension Mixed hyperlipidemia Persistent atrial fibrillation (CMS/HCC) Atrial fibrillation Anemia, unspecified type BMI 28.0-28.9,adult documented in this encounter [facility] Work Phone: Evaluation note* Diagnosis High risk medication use- Primary Single vessel coronary disease Essential hypertension Unspecified essential hypertension Mixed hyperlipidemia Persistent atrial fibrillation (Multi) Atrial fibrillation BMI 28.0-28.9,adult Cerebrovascular accident (CVA), unspecified mechanism (Multi) Anemia, unspecified type Former smoker Personal history of tobacco use, presenting hazards to health documented in this encounter [facility] Work Phone: Evaluation note* Diagnosis Xerosis [...] documented in this encounter [facility] Work Phone: Evaluation note* Diagnosis Xerosis cutis- Primary Other specified disease of sebaceous glands Diabetes 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, unspecified whether chcf insulin use ([facility]) Pain due to onychomycosis of [...] documented in this encounter [facility] Work Phone: Evaluation note* Diagnosis Persistent [...] documented in this encounter [facility] Work Phone: Evaluation note* Diagnosis Xerosis cutis- Primary Other specified disease of sebaceous glands Diabetes 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, unspecified whether terminal worker insulin use (HCC) Pain due to onychomycosis of toenails of both feet Right foot drop Other acquired deformity of ankle and foot [facility] Diagnosis Persistent atrial fibrillation (Multi)- Primary Atrial fibrillation High risk medication use documented in this encounter [facility] Work Phone: Evaluation note* Diagnosis High risk medication use Persistent atrial fibrillation (Multi) Atrial fibrillation documented in this encounter [facility] Work Phone: History general Narrative - Reported* Type Description Date Medical History UT Medical HistoryDMMedical HistoryHTNSurgical HistorycholecystectomySurgical Historyback surgerySurgical Historyelbow surgerySurgical Historycataracts, bilaterallySurgical HistoryT & AHospitalization Historysee aboveHospitalization HistoryMI-2019 [employer] Other History of Present illness Narrative* Is [...] reports he was in the hospital in [place] in [place] after a stroke. Hedoes not know if [...] 4. I to retrieve his record from [place] * 5. I advised the patient TO bring his medication with him and tried to write things down concerninghis memory does not appears to be good and he has no good social support system -[facility] [address] DO Work Phone: History of Present illness Narrative* Marciano Flores Ari, DPM - 11/03/2024 2:40 PM EDT Patient: Shahrzad [...] has not been using prescribed or recommended djjp-lyo-pndgevp cream with negative improvement. Patient has history [...] and negative PT pedal pulses NEURO: 5.07 Chama Nacho monofilament test diminished to digits and forefoot bilaterally 125Hz tuning fork diminished to 1st MPJ bilaterally ORTHO: Positive pain on palpation to toenails of the left 1,2,3,4,5 toes and right 1,2,3,4,5 toes +4/5dorsiflexion right ankle ASSESSMENT 1. Diabetes 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, unspecified whether chcf insulin use (HCC) 2. Pain due to [...] . Marciano Hi DPM documented in this encounterNONorthwest Medical CenterReason for referral (narrative)No reason for referral information availableWexner Medical Center Work Phone: Summary Purpose Family History No [...] fibrillation (CMS/HCC) Procedures ECG 12 Lead Veronica iLz MD [address] [facility] 2, [address] [address] Referral IDStatusReasonStart DateExpiration DateVisits RequestedVisits [id number] / ProceduresReferred By ContactReferred To ContactCardiology Diagnoses Single vessel coronary disease Essential hypertension Procedures Follow Up In Cardiology Veronica Liz MD [address] [facility], [address] [address] [place] [address] Veronica Liz MD [address] [facility], [address] [place] [address] Referral IDStatusReasonStart DateExpiration DateVisits RequestedVisits [id number]/9/202311/8/455146YqvbxnpuzHoukgvzoy / Procedures Referred By ContactReferred To ContactRadiology Diagnoses Cerebrovascular accident (CVA), unspecified mechanism (HCC) Procedures CT HEAD WO CONTRAST Alexander Grey, HAIR SPINNER - RETAIL HELPER [address] [facility] [address] [facility] [address] [place] [address] Referral IDStatusReasonStart DateExpiration DateVisits RequestedVisits [id number]/29/20229/29/202311 Additional Source Comments (unrecognized sect ion and [...] section and content) DATE CREATED AUTHOR 06/11/2018 [facility] DATE CREATED AUTHOR AUTHOR'S ORGANIZ ATION 12/17/2021 [facility] DATE CREATED AUTHOR AUTHOR'S ORGANIZ ATION 05/18/2022 [facility] DATE CREATED AUTHOR AUTHOR'S ORGANIZ ATION 06/06/2022 [employer] DATE CREATED AUTHOR AUTHOR'S ORGANIZ ATION 08/07/2022 [facility] DATE CREATED AUTHOR AUTHOR'S ORGANIZ ATION 11/05/2024 [facility] DATE CREATED AUTHOR AUTHOR'S ORGANIZ ATION 11/25/2024 [facility] DATE CREATED AUTHOR AUTHOR'S ORGANIZ ATION 12/23/2024 [facility] DATE CREATED AUTHOR AUTHOR'S ORGANIZ ATION 01/14/2025 [facility] DATE CREATED AUTHOR AUTHOR'S ORGANIZ ATION 01/21/2025 [facility] DATE CREATED AUTHOR AUTHOR'S ORGANIZ ATION 01/31/2025 [facility] REASON FOR VISIT (unrecogniz ed section and content) ReasonCommentsFollow-up6 monthSpecialtyDiagnoses / ProceduresReferred By Contact Referred To Contact Diagnoses Persistent atrial fibrillation (CMS/HCC) Procedures ECG 12 Lead Veronica Liz MD [address], [place] [address] [place], [place] [id number] Referral IDStatusReasonSkowhegan DateExpiration DateVisits RequestedVisits [id number]-jq9 monthsSpecialtyDiagnoses / ProceduresReferred By ContactReferred To Contact Cardiology Diagnoses Single vessel coronary disease Essential hypertension Procedures Follow Up In Cardiology Veronica Liz MD [address], [place] [address] [place] [address] Veronica Liz MD [address], [place] [address] [place] [id number] Referral IDStatMercy Health DateExpiration DateVisits RequestedVisits [id number]/9/202311/8/380127VljajeTsvunnsyKoalnhj CareNon DM NailsSpecialtyDiagnoses / ProceduresReferred By ContactReferred To Contact Cardiology Diagnoses Persistent atrial fibrillation (Multi) Procedures Follow Up In Cardiology Veronica Liz MD [address], [address] [place] [address] Phone: tel: fax: Veronica Liz MD [address] [facility], [place] [phone] Phone: tel: fax: Referral IDStatusReasonStart DateExpiration DateVisits RequestedVisits [id number]/9/20245/042359SsykcpZysntslbIaamitd CareNon dm [facility] careReasonComments[facility] 04/06 TIA expressive aphasiaSpecialtyDiagnoses / ProceduresReferred By ContactReferred To Contact Diagnoses Persistent atrial fibrillation (Multi) Procedures ECG 12 Lead Veronica Liz MD [address] [facility], [place] [address] Phone: tel: fax: Referral IDStatusReasonStart DateExpiration DateVisits RequestedVisits [id number]/29/20251/886285TgmzlhTjcjgewzSzzxyy-xn0 months Persistent atrial fibrillation (MultiSpecialtyDiagnoses / ProceduresReferred By ContactReferred To ContactCardiology Diagnoses Single vessel coronary disease Procedures Follow Up In Cardiology Veronica Liz MD [address] [facility], [place] [phone] Phone: tel: fax: Veronica Liz MD [address] [facility] [address], [place] [address] Phone: tel: fax: Referral IDStatusReasonStart DateExpiration DateVisits RequestedVisits [id number]/7/202411/7/222722NkkfmsFlenctmcXnchavg CareReason CommentsEKG visitSpecialtyDiagnoses / ProceduresReferred By ContactReferred To Contact Diagnoses High risk medication use Persistent atrial fibrillation (Multi) Procedures ECG 12 Lead Veronica Liz MD [address] [facility] [address], [place] [address] Phone: tel: fax: Referral IDStaOhioHealth DateExpiration DateVisits RequestedVisits [id number]/6/20258/6/666798LplisuTfvghwzsIemkpplw ECG2 week EKG follow up for Persistent atrial fibrillationSpecialtyDiagnoses / Procedures Referred By ContactReferred To Contact Diagnoses High risk medication use Persistent atrial fibrillation (Multi) Procedures ECG 12 Lead Veronica Liz MD [address] [facility], [address] [place] [address] Phone: tel: fax: Referral IDStatMeredithEncompass Health Rehabilitation [facility] DateExpiration DateVisits RequestedVisits [id number]/20/20258/ Ordered Prescriptions (unrec ognized section and content) [...] 1100, Last dose on 12/07/21 at 2100 * 1123 (Given - Provider: Little Treadwell RN) * 2253 (Given - Provider: Jono Serrano RN) * 0847 (Given - Provider: Reese Schofield, JUAN) * 2100 (Due) amiodarone (CORDARONE) tablet 200 [...] Provider: Reese Schofield RN) * 2100 (Due) enoxaparin Sodium (LOVENOX) injection 30 mg [...] Provider: Reese Schofield RN) * 2100 (Due) insulin lispro (HUMALOG) injection vial 0-16 [...] Reason: Order parameters not met - Comment: or=195) * 1203 (Not Given - Provider: Huang [...] Until Discontinued * 0847 (Given - Provider: iLttle Treadwell RN) * 0846 (Given - Provider: [...] dose) * 2053 (Given - Provider: Jono Serrano, JUAN) * 0847 (Given - Provider: Little Treadwell RN) * 2021 (Given - Provider: Jono Serrano, JUAN) * 0847 (Given - Provider: Reese Schofield, JUAN) * 2100 (Due) ofloxacin (OCUFLOX) 0.3 % solution 5 drop (COMPLETED) 5 drop, Left Ear, DAILY, 5 doses, First dose (after last modification) on 11/30/21 at 0900, Lastdose on Thu12/04/21 at 0900 * 0943 (Given - Provider: Huang Gurrola RN) * 0848 (Given - Provider: Little Treadwell, JUAN) * 0847 (Given - Provider: Reese Schofield, JUAN) tamsulosin (FLOMAX) capsule 0.4 mg 0.4 mg, Oral, DAILY, First dose on Thu12/01/21 at 2100, Until Discontinued, Do not crush or break. * 0936 (Given - Provider: Huang Gurrola RN) * 0847 (Given - Provider: Little Treadwell, JUAN) * 0847 (Given - Provider: Reese Schofield, [...] * 0123 (Given - Provider: Jono Serrano, JUAN) * 0846 (Given - Provider: Little Treadwell, JUAN) * 2253 (Given - Provider: Jono Serrano, JUAN) * 0735 (Given - Provider: Reese Schofield, [...] EVERY 8 HOURS PRN, Starting on Thu12/02/21 [id number], Until Discontinued, Bladder Spasms, Note: Additive effect with hyoscyamine. sodium chloride flush 0.9 % injection 10 mL 10 mL, IntraVENous, PRN, Starting on Thu11/28/21 at 0937, Until Discontinued, Line Care * [...] (unrecognized sec tion and content) Team MemberRelationshipSpecialtyStart DateValente Buckley DO [address] [place] [phone] PCP - General03/23/99Team MemberRelationshipSpecialtyStart DateEnd Date Unallocated, Godwin Ojeda MD [address] [place] [address] PCP - GeneralFamily Medicine06/04/23Team MemberRelationshipSpecialtyStart DateEnd Date Unallocated, Godwin Ojeda MD [address] [place] [place] [address] PCP - [facility] Medicine06/04/23Team MemberRelationshipSpecialtyStart DateEnd Date Veronica Liz MD [address] [facility] [address] [place] [address] PCP - [facility] Attributed Provider03/23/23Team MemberRelationshipSpecialtyStart DateEnd Date Veronica Liz MD [address] [facility] [address] [place] [address] PCP - [facility] Attributed Provider03/23/23 Zachariah Ochoa MD [address] [place] [address] PCP - Generalmily Medicine04/20/24Team MemberRelationshipSpecialtyStart DateEnd Date Zachariah Ochoa MD [address] [place] [address] PCP - GeneralFamily Medicine04/20/24Team MemberRelationshipSpecialtyStart DateEnd Date Zachariah Ochoa MD [address] [place] [facility] [place] [address] PCP - [facility]04/20/24Team MemberRelationshipSpecialtyStart DateEnd Date Zachariah Ochoa MD [address] [place] [facility] [place] [address] PCP - [facility]04/20/24 Team Status: Inactive Member Role Status Dates [...] BE BASED ON THE PRIMARY CLINICAL RECORDS. [facility]. provides no warranty or guarantee of the accuracy or completeness of information in this document.
--- OUTSIDE RECORDS SUMMARY | 2025-02-01 06:42 | XMS_ITS | Clinical Summary ---
Author Organization [facility] Address [address], [address] [place] [address] Care Team Providers Care Command And Control Officer Name Role Phone Unavailable Primary Care Provider [...] at Discharge) Active Problems ProblemNoted DateDiagnosed DateHemorrhagic qslhzy2612/03/2021trial fibrillation with RVR12/02/2021rimary ovzjepjnvvoj99/12/2022Type 2 diabetes mellitus without complication, without long-term current use of agftqvw15/12/2022COPD (chronic obstructive pulmonary disease)12/02/2021AF (paroxysmal atrial fibrillation) 11/29/20216013Rxoxws88/09/2022erebrovascular accident (CVA)2Otitis media with effusion, left11/28/2021 Family [...] InformationValueDate RecordedSex Assigned at BirthNot on fileLegal QafSfyv1409/22/2021 7:59 PM EDTGender IdentityNot on fileSexual OrientationNot on file Last Filed Vital Signs Vital SignReadingTime TakenCommentsBlood Zgjkojkx301/8312/04/2021 10:00 AM EDT Aaffj188912/04/2021 10:00 AM TMDSoiddvpbnal80.6 ??C (97.9 ??F)12/04/2021 8:00 AM EDTRespiratory Giwk857112/04/2021 10:00 AM EDTOxygen Hkgtydxmaq40%12/04/2021 10:00 AM EDTInhaled Oxygen Concentration--Uvuert49 kg (207 lb 3.7 oz)11/28/2021 6:29 AM EAIYpllqe471.4 cm (6' 1 )11/28/2021 6:29 AM EDTBody Mass Index27.34011/28/2021 6:29 AM EDT Plan of Treatment Health MaintenanceDue DateLast DoneCommentsDepression Yyjmzg5910/23/1958Diabetic Alb to Cr ratio (uACR) test1964Hepatitis C wgxyke1810/23/1964DTaP/Tdap/Td vaccine (1 - Tdap)1965Pneumococcal 50+ years Vaccine (1 of 1 - PCV) 1996Shingles vaccine (1 of 2)1996Respiratory Syncytial Virus (RSV) or age 60 yrs+ (1 - 1-dose 75+ series)10/23/20211859Uytsqq54/08/2023 11/28/2021GFR test (Diabetes, CKD 3-4, OR last GFR 15-59)/, 12/03/2021, 12/01/2021, Additional history existsFlu vaccine (#1)10/21/2024 COVID-19 Vaccine (2024- season), 06/12/2020, 1A1C test (Diabetic or Prediabetic)Vckfwaydlmux20/08/2022Hepatitis A vaccineAged OutNo longer eligible based on [...] topic Procedures Procedure NamePriorityDate/TimeAssociated DiagnosisCommentsBASIC METABOLIC PANEL Caammxs1012/04/2021 6:18 AM EDT LIPID WHOUFQjjrxja54/08/2022 7:37 AM EDT HEMOGLOBIN I8NKffsiil41/08/2022 3:59 AM EDT from Last 3 Months or Most Recently Relevant to Health Maintenance Results * (ABNORMAL) Basic Metabolic Panel (12/04/2021 6:18 AM EDT)ComponentValueRef RangeTest MethodAnalysis TimePerformed AtPathologist MpoldxxdbHlnnkpg852(H)70 - 99 mg/dL12/04/2021 6:18 AM EDTMERCY XNDZIZLOIQKMBNL382 - 23 mg/dL12/04/2021 6:18 AM EDTMERCY LABORATORIESCreatinine0.69(L)0.70 - 1.20 mg/dL12/04/2021 6:18 AM EDTMERCY LABORATORIESCalcium8.3(L)8.6 - 10.4 mg/dL12/04/2021 6:18 AM EDT [facility] PXSHLIYHWFWPCaojbq768(L)135 - 144 mmol/L12/04/2021 6:18 AM EDTMERCY LABORATORIESPotassium4.03.7 - 5.3 mmol/L12/04/2021 6:18 AM EDTMERCY CDXTHGXDKRTATnizdmib91066 - 107 mmol/L12/04/2021 6:18 AM EDTMERCY LABORATORIES CL45005 - 31 mmol/L12/04/2021 6:18 AM EDTMERCY LABORATORIESAnion Brk149 - 17 mmol/L12/04/2021 6:18 AM EDTMERCY LABORATORIESGFR Non->60>60 mL/min12/04/2021 6:18 AM EDTMERCY LABORATORIESGFR >60>60 mL/min12/04/2021 6:18 AM EDTMERCY LABORATORIESGFR Eggfifu7212/04/2021 6:18 AM EDTMERCY LABORATORIESComment: Average GFR for 70 or more years old: 75 mL/min/1.73sq m Chronic Kidney Disease: <60 mL/min/1.73sq m Kidney failure: <15 mL/min/1.73sq m ? eGFR calculated using average adult body mass. Additional eGFR calculator available at: ? http://www.Doodle/multiple_crcl_2012.htm ? Specimen (Source)Anatomical Location / LateralityCollection Method / Volume Collection TimeReceived TimeBLOOD SPECIMEN / Yyychwl8912/04/2021 6:18 AM EDT 12/04/2021 6:30 AM EDT Narrative Authorizing ProviderResult TypeResult StatusAdina Do COMMERCIAL ELECTRICIAN - CNPCHEMISTRY ORDERABLESFinal ResultPerforming OrganizationAddressCity/State/ZIP CodePhone Number [facility] [address] [place] [address], [facility] [phone] * (ABNORMAL) Lipid Panel (11/28/2021 7:37 AM EDT)ComponentValueRef RangeTest MethodAnalysis TimePerformed AtPathologist BhsvnujdnMxykbjphlbe466<200 mg/dL 11/28/2021 7:37 AM EDTMERCY LABORATORIESComment: Cholesterol Guidelines: <200 Desirable 200-240 ??Borderline >240 Undesirable HDL34(L)>40 mg/dL11/28/2021 7:37 AM EDTMERCY LABORATORIESComment: HDL Guidelines: <40 Undesirable 40-59 ?Borderline >59 Desirable LDL Jsfyjgdcknp473 - 130 mg/dL11/28/2021 7:37 AM EDTMERCY LABORATORIESComment: [...] MDCHEMISTRY ORDERABLES Final ResultPerforming OrganizationAddressCity/State/ZIP CodePhone Number [place] [phone] [address] [phone] * (ABNORMAL) Hemoglobin A1c (11/28/2021 3:59 AM EDT)ComponentValueRef RangeTest MethodAnalysis TimePerformed AtPathologist SignatureHemoglobin A1C8.1(H)4.0 - 6.0 %11/28/2021 3:59 AM EDTMERCY LABORATORIESEstimated Avg Skkqiug043hu/dL 11/28/2021 3:59 AM EDTMERCY LABORATORIESComment: The ADA and AACC recommend providing the estimated average glucose result to permit better patient understanding of their HBA1c result. Specimen (Source)Anatomical Location / LateralityCollection Method / Volume Collection TimeReceived TimeBLOOD SPECIMEN / Cuipjwk9811/28/2021 3:59 AM EDT 11/28/2021 4:15 AM EDT Narrative Authorizing ProviderResult TypeResult StatusPaul Eber MDCHEMISTRY ORDERABLES Final ResultPerforming OrganizationAddressCity/State/ZIP CodePhone Number [facility] [address] [place] [address], [facility] [phone] from Last 3 Months or Most Recently Relevant to Health Maintenance Insurance * Guarantor: Davon Mcnair TypeRelation to PatientDate of BirthPhone Billing AddressPersonal/YtfoqbJcrf66/03/1946 ([place]) [address] [place] [address] * Guarantor: Davon Mcnair TypeRelation to PatientDate of BirthPhone Billing Address[facility] - Personal/FamilySelf [address] [place], [place] [id number] Advance Directives * Full Code (Latest Code Status on File) Date ActivatedDate InactivatedComments11/28/2021 3:26 AM12/04/2021 2:54 PM
--- OUTSIDE RECORDS SUMMARY | 2025-02-01 06:42 | XMS_ITS | Clinical Summary ---
Author Organization [facility] Address [address] [place] [address] Care Team Providers Care Travel Accommodations Rater Name Role Phone Unallocated, Noms Provider Primary [...] Problems No known active problems Encounters DateTypeDepartmentCare TslvAjbzfwcvkoa41/14/2025 2:40 PM EDTProcedure Visit [facility] [address] [place] [phone] Marciano Chapman DPM Xerosis cutis (Primary Dx); Diabetes 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, unspecified whether superintendent container terminal insulin use (HCC); Pain due to onychomycosis of toenails of both feet; Right foot drop11/03/2024amboo flowsheet [facility] [address] [place] [phone] Marciano Chapman DPM 11/03/2024Travelfrom Last 3 Months Family History RelationNameStatusCommentsFatherDeceasedMotherDeceased Social History Tobacco UseTypesPacks/DayYears UsedDateSmoking Tobacco: UnknownPassive Smoke Exposure: Never Tobacco Cessation:Counseling Given: Yes Alcohol UseStandard Drinks/WeekCommentsYes1 (1 standard drink = 0.6 oz pure alcohol)coffee dailySex and Gender InformationValueDate RecordedSex Assigned at BirthNot on fileLegal UhqJdzj3106/04/2022 6:56 PM EDTGender IdentityNot on file Sexual OrientationNot on file Last Filed Vital Signs Vital SignReadingTime TakenCommentsBlood Borgoshe090/7710 1:51 PM EDT Jwlkc445301/07/2024 1:51 PM EDTTemperature--Respiratory Kyhh973411/03/2024 1:40 PM EDTOxygen Saturation--Inhaled Oxygen Concentration--Ygruzl21.2 kg (212 lb) 11/03/2024 1:40 PM SDGMgoary780.4 cm (6' 1 )11/03/2024 1:40 PM EDTBody Mass Index27.9711/03/2024 1:40 PM EDT Plan of Treatment Health MaintenanceDue DateLast DoneCommentsMedicare Annual Wellness (AWV) 1945Diabetes: Retinopathy Yztckhels03/03/1957Diabetes: Urine Protein Hduybybfj12/03/1966Pneumococcal Vaccine: 65+ Years (1 of 2 - PCV)1965 Diabetes: Hemoglobin A1C/2COVID-19 Vaccine ( season), 06/12/2020, 05/21/2020Influenza Vaccine (#1) 1997IekqfjbcduuJuqwkctiqhev56/27/2020, 04/18/2019, 02/21/2016 Colorectal Cancer ScreeningDiscontinuedCT ColonographyDiscontinuedFIT-DNA DiscontinuedFITDiscontinuedFOBTDiscontinuedSigmoidoscopyDiscontinued Insurance * Guarantor: Ciaran Mcnair TypeRelation to PatientDate of BirthPhone Billing AddressPersonal/XgpjcoJztg09/03/1946 [address] [address] Care Teams Team MemberRelationshipSpecialtyStart DateEnd Date Unallocated, Noms MD Lynette [address] [place] [address] [facility]
--- OUTSIDE RECORDS SUMMARY | 2025-02-01 06:42 | XMS_ITS | Clinical Summary ---
Author Organization [facility] Address [address] [place] [address] Care Team Providers Care Bank Secrecy Act Officer Name Role Phone Unavailable Primary Care Provider Unavailabl e Allergies Active AllergyReactionsCriticalityNoted DateCommentsCoconutAnaphylaxisHigh 01/30/20252488AuisduzzJbuvtfetguabrd67/10/2025 Medications MedicationSigDispense QuantityRefillsLast FilledStart DateEnd DateStatus aspirin [...] mouth 1 (one) time per week. THURSDAYSActive Active Problems No known active problems Encounters DateTypeDepartmentCare XnpcBqqerpqgnxt01/10/2025 11:33 AM EST - 01/30/2025 11:59 PM ESTHospital Encounter [facility] X-Ray Imaging [address] [place] [phone] Arrived Discharge Disposition: Home or Self Care ()01/30/2025 10:03 AM EST - 01/30/2025 11:32 AM ESTHospital Encounter [facility] [place] [phone] Pain Discharge Disposition: Home or Self Care ()01/30/2025 9:59 AM ESTAnesthesia Event [facility] Main Operating Room [address] [place] [phone] Saurabh Nick MD Eisenman-Patel, Taylor, MD 01/30/2025 8:16 AM ESTHospital Encounter [facility] [place] [phone] Josefa Shah MD Rooney, Thomas, MD Willis, Davontae, MD Lung mass Discharge Disposition: Home or Self Care ()01/30/20256416Vgfufb86/29/2025Orders Only Pulmonary [address] [place] [phone] Josefa Shah MD Lung mass (Primary Dx)01/18/2025 - 01/18/2025 11:59 PM EDTHospital Encounter [facility] [place] [address] Discharge Disposition: Home or Self Care ()01/18/2025Orders Only Christelle [address] [facility] Oncology [address] [place] [address] Aneta Mccray MA from Last 3 [...] and Gender InformationValueDate Recorded Sex Assigned at DhzcaAvqi51/10/2025 8:19 AM ESTLegal ZkzWwes1909/18/2021 11:03 PM EDTGender DfibkjbjCryj48/10/2025 8:19 AM ESTSexual OrientationHeterosexual or Bqkxllvt47/10/2025 8:19 AM EST Last Filed Vital Signs Vital SignReadingTime TakenCommentsBlood Tbpwamyq414/8101/30/2025 12:15 PM EST Ikfgf255001/30/2025 12:15 PM PERRdavrjovrus38 ??C (96.8 ??F)01/30/2025 11:28 AM ESTRespiratory Edcy300304/01/2024 11:30 AM ESTOxygen Dglgimepaa51%01/30/2025 12:15 PM ESTInhaled Oxygen Concentration--Ceuujz13.7 kg (175 lb 11.3 oz)01/30/2025 9:32 AM IEGThwryy643.4 cm (6' 1 )01/30/2025 9:32 AM ESTBody Mass Index23.18 01/30/2025 9:32 AM EST Plan of Treatment Health MaintenanceDue DateLast DoneCommentsDiabetes: Hemoglobin A1C1945 Medicare Annual Wellness (AWV)1945Diabetes: Retinopathy Screening 1956Depression Jkdfmtcye04/03/1959Diabetes: Urine Protein Screening 1965Pneumococcal Vaccine: 50+ Years (1 of 2 - PCV)1965Adult Tetanus 1968Zoster Vaccines (1 of 2)1996Fall Risk Rbebzhhkd75/03/2012COVID- 19 Vaccine ( season), 06/12/2020, 05/21/2020 Influenza Vaccine (#1)2210CouswtvypclDjfurregvbfd50/27/2020 Colorectal Cancer ScreeningDiscontinuedCT ColonographyDiscontinuedFIT-DNA DiscontinuedFITDiscontinuedFOBTDiscontinuedHIB VaccinesAged OutNo [...] to complete this topicSigmoidoscopyDiscontinued Procedures Procedure NamePriorityDate/TimeAssociated DiagnosisCommentsXR CHEST 1 VIEWSTAT 01/30/2025 12:16 PM EST XDDOPENPHRDQZoqbhlh43/10/2025 11:26 AM EST Lung mass FL LESS THAN 1 HOUR EMTWMPWSURXQFILhldhvk85/10/2025 11:00 AM EST Pain [place] AN ELECTIVE ENDOTRACHEAL FOFVKBIvbeidz38/10/2025 10:08 AM EST POCT GLUCOSE METER UNSOLICITED MOMEIXZQkgroia53/10/2025 8:[address] TRANSFER OF OUTSIDE REIIRKiszogh25/29/2025 12:00 AM EDT from Last 3 Months Results * XR chest 1 view (01/30/2025 [...] Jimenez MD. Authorizing ProviderResult TypeResult StatusMohamed Alyssa LEWIMJulieta XR PROCEDURES Final Result * Bronchoscopy with [...] Pulmonary Medicine Pulmonary and Critical Care Medicine [facility] Physicians Authorizing ProviderResult TypeResult StatusMokira Shah MDENDOSCOPY PROCEDURE ORDERABLESFinal Result * FL LESS THAN 1 HOUR INTRAOPERATIVE [...] images demonstrate bronchoscope placement. Electronically signed: Saurabh Contreras Authorizing ProviderResult TypeResult StatusJosefa Shah MDIMG FLUOROSCOPY PROCEDURESFinal Result * [place] AN ELECTIVE ENDOTRACHEAL AIRWAY (01/30/2025 10:08 AM EST) Narrative Saurabh Nick MD - 01/30/2025 10:08 AM EST Saurabh Nick MD 01/30/2025 10:41 AM Airway Date/Time: 01/30/2025 10:08 AM Reason: elective Airway not difficult General Information and Staff Patient location during procedure: OR Anesthesiologist: Saurabh Nick MD Resident/FISH CLEANER MACHINE TENDER/CAA: Bishnu Viera MD Performed: resident/FISH CLEANER MACHINE TENDER/CAA Learner assisted: 3 Lokesh Jade assisted with [...] ProviderResult TypeResult StatusThomas Sandoval MDANESTHESIA ORDERABLESFinal Result * (ABNORMAL) POCT glucose meter (01/30/2025 8:46 AM EST)ComponentValueRef Range Test MethodAnalysis TimePerformed AtPathologist SignatureGlucose IJI572(H)70 - 105 mg/dL01/30/2025 9:02 AM [facility]Comment:mschober Specimen (Source)Anatomical Location / LateralityCollection Method / Volume Collection TimeReceived TimeBloodCapillary blood specimen / Spnxwmn0401/30/2025 8:46 AM EST01/30/2025 9:02 AM EST Narrative [facility] - 01/30/2025 9:02 AM EST Waived Testing in the ED is performed under the ED CLIA certificate #[id number]. Authorizing ProviderResult TypeResult StatusMohamfranky Shah MDLAB BLOOD ORDERABLESFinal ResultPerforming OrganizationAddressCity/State/ZIP CodePhone Number [facility] [address] [place] [address] * CT transfer of outside films (01/18/2025 12:00 AM EDT)Specimen (Source) Anatomical Location / LateralityCollection Method / VolumeCollection Time Received Time Narrative IMAGING - 01/18/2025 10:58 AM EDT This order has been auto-finalized and does not contain a result. Authorizing ProviderResult TypeResult StatusMohamfranky Shah MDIMG CT PROCEDURES Final ResultPerforming OrganizationAddressCity/State/ZIP CodePhone Number IMAGING from Last 3 Months Insurance
--- OUTSIDE RECORDS SUMMARY | 2025-02-01 06:42 | XMS_ITS | Encounter Summary ---
Author Organization [facility] Address [address] [place] [address] Care Team Providers Care Brain Surgeon Name Role Phone Unavailable Primary Care Provider Unavailabl e Reason for Referral * Hospital - Outpatient (Routine) - AuthorizedSpecialtyDiagnoses / Procedures Referred By ContactReferred To ContactGastroenterology Diagnoses Lung mass Procedures Bronchoscopy with TBBx, EBUS with 3 or more stations Josefa Shah MD [address] [place] [address] Phone: tel: fax: [facility] Endoscopy [address] [place] [address] Phone: tel: fax: Referral IDStatusReasonStart DateExpiration DateVisits RequestedVisits [id number] Encounter Details DateTypeDepartmentCare Team (Latest Contact Info)Pvkinyqksty37/29/2025Orders Only Pulmonary [address] [place] [address] Josefa Shah MD [address] [place] [address] Lung mass (Primary Dx) Social History Tobacco UseTypesPacks/DayYears UsedDateSmoking Tobacco: Never AssessedUT Safety & EnvironmentAnswerDate RecordedFear of Current or Ex-PartnerNot on file 05/14/2023Emotionally AbusedNot on file05/14/2023hysically AbusedNot on file 05/14/2023Sexually AbusedNot on file05/14/2023hysically or Sexually AbusedNot on file05/14/2023Sex and Gender InformationValueDate RecordedSex Assigned at InqboGmpv75/10/2025 8:19 AM ESTLegal GriPqsz6409/18/2021 11:03 PM EDTGender VbfnhjadTnxb38/10/2025 8:19 AM ESTSexual OrientationHeterosexual or Straight 01/30/2025 8:19 AM ESTdocumented as of this encounter Plan of Treatment NameTypePriorityAssociated DiagnosesDate/TimeFL in ORImagingRoutine Lung mass 01/30/2025 11:26 AM ESTNameTypePriorityAssociated DiagnosesOrder ScheduleFL in ORImagingRoutine Lung mass Expected: 01/18/2025 (Approximate), Expires: 01/18/2026documented as of this encounter Results * Bronchoscopy with TBBx, EBUS with 3 [...] Pulmonary Medicine Pulmonary and Critical Care Medicine [facility] Physicians Authorizing ProviderResult TypeResult StatusMohamed Alyssa LEWENDOSCOPY PROCEDURE ORDERABLESFinal Result documented in this encounter Visit Diagnoses Diagnosis Lung mass- Primary Swelling, mass, or lump in chest Lung mass Swelling, mass, or lump in chest documented in this encounter
--- OUTSIDE RECORDS SUMMARY | 2025-02-01 06:42 | XMS_ITS | Encounter Summary ---
Author Organization [facility] Address [address] [place] [address] Care Team Providers Care Event Marketing Intern Name Role Phone Unavailable Primary Care Provider Unavailabl e Encounter Details DateTypeDepartmentCare Team (Latest Contact Info)Zpphxjehetq54/10/2025Travel Social History Tobacco UseTypesPacks/DayYears UsedDateSmoking Tobacco: FormerCigarettes Smokeless Tobacco: NeverAlcohol UseStandard Drinks/WeekCommentsYes0 (1 standard drink = 0.6 oz pure alcohol)OCCUT Safety & EnvironmentAnswerDate RecordedFear of Current or Ex-PartnerNot on file05/14/2023Emotionally AbusedNot on file 4Physically AbusedNot on file05/14/2023Sexually AbusedNot on file 4Physically or Sexually AbusedNot on file05/14/2023Sex and Gender InformationValueDate RecordedSex Assigned at EyjklJiyj77/10/2025 8:19 AM EST Legal LdlFisu6309/18/2021 11:03 PM EDTGender SfsgqovxYwau61/10/2025 8:19 AM EST Sexual OrientationHeterosexual or Gsxfqcyu94/10/2025 8:19 AM ESTdocumented as of this encounter Functional Status * QuestionAnswerDate of AssessmentAuthorHeart Rate OannjbPzfdcir74/10/2025 9:32 AM Arianne Lopez RNRamsay Scale (RS): Zdwud49304/01/2024 9:32 AM Arianne Lopez RN * QuestionAnswerDate of AvqhlvntgsPlimtcFA021/8101/30/2025 12:15 PM Mya Munroe RNPulse8501/30/2025 12:15 PM Mya Munroe RN * Lior ScaleQuestionAnswerDate of AssessmentAuthorSensory Perceptions4 01/30/2025 8:50 AM Arianne Lopez RNMoisture4104/01/2024 8:50 AM Arianne Lopez, SXPfynkchp927/10/2025 8:50 AM Arianne Lopez, WIKlqdgxcd608/10/2025 8:50 AM Arianne Lopez, FKLtpieyvqa156/10/2025 8:50 AM Arianne Lopez, RNFriction and Qqbde27604/01/2024 8:50 AM Arianne Lopez RNBraden Scale Yidhd2125/10/2025 8:50 AM Arianne Lopez RN * Pain Assessment TimerQuestionAnswerDate of AssessmentAuthorRestart Pain Assessment ZqrdnRzt95/10/2025 12:15 PM Mya Munroe RN * Pain [...] Mya Munroe RN * QuestionAnswerDate of AssessmentAuthorTemp zlfWwdozfzc14/10/2025 9:32 AM Arianne Wiley RNHeart Rate KrluktMquwxji56/10/2025 9:32 AM Arianne Lopez RNRamsay Scale (RS): Tfcbh28904/01/2024 9:32 AM Arianne Lopez RN * Vital SignsQuestionAnswerDate of JlbkpncwvpTsejmaMM932/8101/30/2025 12:15 PM Mya Munroe RNTemp96.8104/01/2024 11:28 AM Mya Munroe, PNPvnpe21 01/30/2025 12:15 PM Mya Munroe OTFdhi1969/10/2025 11:30 AM Mya Munroe CJNoR42902/10/2025 12:15 PM Mya Munroe RNMAP (mmHg)9501/30/2025 12:15 PM Mya Munroe RNPulse rate from Plethysmogram (bpm)9401/30/2025 12:15 PM Mya Munroe RN * QuestionAnswerDate of AssessmentAuthorLevel of BhibtmtnwmekaWhjwy98/10/2025 12:15 PM Mya Munroe RNOrientation LevelOriented X4104/01/2024 12:15 PM Mya Munroe RN * QuestionAnswerDate of AssessmentAuthorCardiac RhythmA-Fib01/30/2025 12:15 PM Mya Munroe RNCardiac NyustsmwaxPrxmzmggl19/10/2025 12:15 PM Mya Munroe RN * GastrointestinalQuestionAnswerDate of AssessmentAuthorGastrointestinal (WDL) WDL104/01/2024 12:15 PM Mya Munroe RN * Peripheral VascularQuestionAnswerDate of AssessmentAuthorPeripheral Vascular (WDL)WDL104/01/2024 12:15 PM Mya Munroe RN * MusculoskeletalQuestionAnswerDate of DyglvoajopJvryycHAASsvqszvo19/10/2025 12:15 PM Mya Munroe RNLLEWeakness01/30/2025 12:15 PM Mya Munroe RNMusculoskeletal (WDL)X104/01/2024 12:15 PM Mya Munroe RN * PsychosocialQuestionAnswerDate of AssessmentAuthorPsychosocial (WDL)WDL 01/30/2025 8:50 AM Arianne Lopez RN * Lior ScaleQuestionAnswerDate of AssessmentAuthorSensory Perceptions4 01/30/2025 8:50 AM Arianne Lopez, MZTseokllm958/10/2025 8:50 AM Arianne Lopez, JZKsqjyypt306/10/2025 8:50 AM Arianne Lopez, XSKalcvwly649/10/2025 8:50 AM Arianne Lopez, IISmbtdahqz089/10/2025 8:50 AM Arianne Lopez, RNFriction and Iiqsw55604/01/2024 8:50 AM Arianne Lopez RNBraden Scale Krqkb0045/10/2025 8:50 AM Arianne Lopez RN * CardiacQuestionAnswerDate of AssessmentAuthorCardiac (WDL)WDL104/01/2024 8:50 AM Arianne Lopez RN * RespiratoryQuestionAnswerDate of AssessmentAuthorRespiratory (WDL)X104/01/2024 12:15 PM Mya Munroe RN * GenitourinaryQuestionAnswerDate of AssessmentAuthorGenitourinary (WDL)WDL 01/30/2025 12:15 PM Mya Munroe RN * NeurologicalQuestionAnswerDate of AssessmentAuthorNeuro (WDL)WDL104/01/2024 8:50 AM Arianne Lopez RN * QuestionAnswerDate of DxoaccpgubOpfbzgRZSF3789/10/2025 11:25 AM ESTInterface, Device In * Pain AssessmentQuestionAnswerDate of AssessmentAuthorPain LocationAnkle 01/30/2025 9:32 AM Arianne Lopez RNPatient's Stated Pain GoalNo pain 01/30/2025 8:50 AM Arianne Lopez RNWrosa-Echols FACES Pain Rating0 01/30/2025 11:30 AM Mya Munroe RNPain TypeAcute pain01/30/2025 9:32 AM Arianne Lopez RNPain Score0 - No pain01/30/2025 9:32 AM Arianne Lopez RNPain AssessmentNo/denies pain01/30/2025 12:15 PM Mya Munroe RN * IntegumentaryQuestionAnswerDate of AssessmentAuthorIntegumentary (WDL)WDL 01/30/2025 8:50 AM Arianne Lopez RN * [place] Suicide Severity Rating ScaleQuestionAnswerDate of AssessmentAuthor1. Have [...] Arianne Wiley RN * Modified AldreteQuestionAnswerDate of ZdkshzdmxjEdyugaZhqxjiiz163/10/2025 12:15 PM Mya Munroe RNRespiration 12:15 PM yMa Munroe RNCirculation 12:15 PM Mya Munroe RNConsciousness 12:15 PM Mya Munroe RNOxygen Twktrzzual126/10/2025 12:15 PM Mya Munroe RNModified Cedric Jqkem9054 12:15 PM Mya Munroe RN documented as of this encounter Mental Status * Modified AldreteQuestionAnswerEntry YamjHojmpmIqxcwrpt360/10/2025 12:15 PM Mya Segal RNRespiration2104/01/2024 12:15 PM Mya Munroe RN Odszcomgvnw730/10/2025 12:15 PM Mya Munroe RNConsciousness2104/01/2024 12:15 PM Mya Munroe RNOxygen Cfurkhehaz644/10/2025 12:15 PM Mya Munroe RNModified Cedric Bprdi8574 12:15 PM Mya Munroe RN documented in this encounter Plan of Treatment Not on file documented as of this encounter Visit Diagnoses Not on filedocumented in this encounter
--- OUTSIDE RECORDS SUMMARY | 2025-02-01 06:42 | XMS_ITS | Clinical Summary ---
Author Organization [facility] Address [id number] [address] [place] [address] Care Team Providers Care Channel Account Manager Name Role Phone Unavailable Primary Care Provider Unavailabl e Social History Tobacco UseTypesPacks/DayYears UsedDateSmoking Tobacco: Never AssessedSex and Gender InformationValueDate RecordedSex Assigned at BirthNot on fileLegal Sex Male10/04/2023 2:13 PM EDTGender IdentityNot on fileSexual OrientationNot on file Plan of Treatment Health MaintenanceDue DateLast DoneCommentsDepression Xjkwijipe21/03/1959Tobacco Izzwapxfy20/03/1959DTaP,Tdap and Td Vaccines (1 - Tdap)1965Zoster (Shingles) Vaccine (1 of 2)1996Fall Risk Tgpxyoexe20/03/2012RSV ( or age 60+ yrs) (1 - 1-dose 75+ series)2COVID-19 Vaccine ( season)510/, 06/12/2020, 05/21/2020Influenza Znrsuao7411/21/2024 03/23/2017 Medical Devices Not on file Insurance
--- OUTSIDE RECORDS SUMMARY | 2025-02-01 06:43 | XMS_ITS | Patient Health Record ---
Author Organization [facility] in [place] Address [address] [place] [address] Care Team Providers Care Fourdrinier Tender Name Role Phone Desiree Cuellar Primary Care Provider [phone] Zane Avila [phone] Allergies Allergen (clinical drug ingredient) Drug/Non Drug Allergy documented on EMR Reaction Allergy Type Onset Date Status coconut allergenic extract Coconut (Diagnostic) Unknown Drug Allergy Active Results Component Value Reference Range Notes XR hip RT 2V w/ pelvis Reviewed date:08/22/2024 09:36:42 PM Interpretation: Performing Lab: Notes/Report: Source Facility: [place] [id number] XRay Report Signed Patient: SHAHRZAD MCNAIR MR#: [id number] : 1945 Acct:[id number] Age/Sex: 78 / M ADM Date: 08/22/24 Loc: ER Attending Dr: Ordering Physician: Chevy Wood Date of Service: 08/22/24 Procedure(s): XR hip RT 2V w/ pelvis Accession Number(s): [id number] cc: Zachariah Serna M.D. [place] [id number] Patient Name: SHAHRZAD MCNAIR MRN: [id number] date: 1945 Sex: M Assigned Patient Location: ED.MAIN Current Patient Location: Accession/Order Number: [id number] Exam Date: 08/22/2024 08:06 Report Date: 08/22/2024 [...] Fuentes M.D. 08/22/2024 8:07 AM Dictation Location: [place] [address] Electronically authenticated by: [id number] Y Date: 08/22/2024 08:07 Dictated By: Robbie Fuentes M.D. Signed By: 08/22/24 0810 DD/ 0807 TD/TT: Endodontic Assistant: XR elbow RT min 3V Reviewed date:08/22/2024 09:36:42 PM Interpretation: Performing Lab: Notes/Report: Source Facility: [place] [address] XRay Report Signed Patient: SHAHRZAD MCNAIR MR#: [id number] : 1945 Acct:[id number] Age/Sex: 78 / M ADM Date: 08/22/24 Loc: ER Attending Dr: Ordering Physician: Chevy Wood Date of Service: 08/22/24 Procedure(s): XR elbow RT min 3V Accession Number(s): [id number] cc: Chevy Wood; Zachariah Avila M.D. [place] [address] Patient Name: SHAHRZAD MCNAIR MRN: [id number] date: 1945 Sex: M Assigned Patient Location: ED.MAIN Current Patient Location: Accession/Order Number: [id number] Exam Date: 08/22/2024 08:07 Report Date: 08/22/2024 [...] Fuentes M.D. 08/22/2024 8:08 AM Dictation Location: [place] [address] Electronically authenticated by: [id number] Y Date: 08/22/2024 08:08 Dictated By: Robbie Fuentes M.D. Signed By: 08/22/2411 DD/ TD/TT: Endodontic Assistant: PROF [facility] Reviewed date:01/15/2025 11:55:31 AM Interpretation: Performing Lab: Notes/Report: [facility] , Sodium 138 136-145 mmol/L Potassium4.23.5-5.1 mmol/SYlziuapp47794-323 mmol/LCarbon Qaqgczk61.421.0-32.0 mmol/LAnion Gap15.0Svzpetx39083-619 mg/dLBlood Urea Bradhelx59.07.0-18.0 mg/dL Creatinine1.510.70-1.30 mg/dLEstimated GFR ( Ncfdkur44>=60 mL/min/1.73m 2 Estimated GFR (Non- Ame45>=60 mL/min/1.73m 2BUN Creatinine Ratio12.6 Calcium8.68.5-10.1 mg/dLPerforming Lab:see note - [facility] LBCBC no Diff (Hemogram) Reviewed date:01/15/2025 11:55:31 AM Interpretation: Performing Lab: Notes/Report: [facility] ,White Blood Count8.94.0-11.0 10 3/uLRed Blood Count3.064.70-6.10 10 6/uL Fhidzicenr94.114.0-18.0 g/sLGuijgktaul12.442.0-54.0 %Mean Corpuscular Lrpvsm20.3 80.0-94.0 fLMean Corpuscular Mntbjvhqmq10.025.9-34.0 pgMean Corpuscular HGB Conc 33.229.9-35.2 g/dLRed Cell Distribution Width15.711.0-15.0 %Platelet Qxebg475 150-450 10 3/uLMean Platelet Volume9.29.5-13.5 fLPerforming Lab:see note - [facility] LBTroponin I High Sensitivity Reviewed date:01/15/2025 11:55:31 AM Interpretation: Performing Lab: Notes/Report: [facility] ,Troponin I High Sensitivity6.74.0-76.1 pg/mL CUT-OFF POINTS HAVE BEEN ESTABLISHED BASED ON THE FOURTH NOTE: HIGH-SENSITIVITY TROPONIN ASSAY IS NOT INTENDED TO BE 99TH PERCENTILE = 76.2 PG/ML HAS BEEN CONFIRMED THE DECISION THRESHOLD FOR IA PERCENTILE OF cTnI DISTRIBUTION IN A REFERENCE POPULATION, USED IN ISOLATION BUT SHOULD BE INTERPRETED IN CONJUNCTION WITH OTHER DIAGNOSTIC AND CLINICAL INFORMATION. DIAGNOSIS. UNIVERSAL DEFINITION OF MYOCARDIAL INFARCTION. THE UPPER REFERENCE LIMIT (URL) OF TROPONIN, DEFINED THE 99TH Performing Lab:see noteML - [facility] LBXR ribs LT min 3V w CXR1V Reviewed date:01/15/2025 11:55:31 AM Interpretation: Performing Lab: Notes/Report: Source Facility: [facility] [place] [address] [place] [address] XRay Report Signed Patient: SHAHRZAD MCNAIR MR#: [id number] : 1945 Acct:[id number] Age/Sex: 79 / M ADM Date: 01/15/25 Loc: ER Attending Dr: Ordering Physician: Indira Vogt Date of Service: 01/15/25 Procedure(s): XR ribs LT min 3V w CXR1V Accession Number(s): [id number] cc: Zachariah Avila M.D.; Indira Vogt [place] [address] Patient Name: SHAHRZAD MCNAIR MRN: [facility]:[id number] date: 1945 Sex: M Assigned Patient Location: ER Current Patient Location: ED.MAIN Accession/Order Number: [id number] Exam Date: 01/15/2025 07:30 Report Date: 01/15/2025 [...] Francois M.D. 01/15/2025 8:56 AM Dictation Location: [place] [address] Electronically authenticated by: [id number] Y Date: 01/15/2025 08:56 Dictated By: Gilles Francois D.O. Signed By: 01/15/25 0858 DD/ TD/TT: Endodontic Assistant:CT chest herbert duvall Reviewed date:01/23/2025 07:32:19 PM Interpretation: Performing Lab: Notes/Report: Source Facility: [facility] [place] [address] CT Scan Report Signed Patient: SHAHRZAD MCNAIR MR#: [id number] : 1945 Acct:[id number] Age/Sex: 79 / M ADM Date: 01/23/25 Loc: ER Attending Dr: Ordering Physician: Natalie Dash Date of Service: 01/23/25 Procedure(s): CT chest wo con Accession Number(s): [id number] cc: Zachariah Avila M.D. [place] [address] Patient Name: SHAHRZAD MCNAIR MRN: [id number] date: 1945 Sex: M Assigned Patient Location: ER Current Patient Location: ER Accession/Order Number: [id number] Exam Date: 01/23/2025 11:38 Report Date: 01/23/2025 12:21 At the request of: NATALIE DASH MD Procedure: CT chest wo con CT CHEST WITHOUT CONTRAST COMPARISON: 01/12/2025 CLINICAL DATA: Continued left chest pain. History of fall with rib fracture. Spiral axial unenhanced images were obtained through the chest. Images were reviewed using both narrow and wide window settings. This CT exam was performed using one or more following dose reduction techniques: Automated exposure control, adjustment of the mA and/or kV according to patient size, or use of iterative reconstruction technique. The heart is within normal limits for size. There is still a small amount of pericardial fluid anteriorly. Coronary artery disease is seen. There is mild atherosclerotic plaque at the aorta and proximal great vessels. No aneurysm is identified. There are similar small nonpathologic mediastinal lymph nodes. There is minor bilateral gynecomastia. Slight dextroscoliotic curvature and minor degenerative changes are seen at the spine. Mild compression deformity at T7 was present on the prior. A nondisplaced anterior left seventh rib fracture is still possible. No other displaced rib fractures are identified. There is still an irregular masslike opacity in the paramediastinal left upper lobe in the suprahilar region. There is additional scarring or atelectasis bilaterally. No pleural effusion or pneumothorax is seen. An elongate pleural based nodular density at the left lower lobe laterally is again seen. Limited imaging through the upper abdomen shows prior cholecystectomy. CT/CT chest wo con IMPRESSION: CONTINUED TINY PERICARDIAL EFFUSION. CONTINUED IRREGULAR MASSLIKE OPACITY AT THE LEFT UPPER LOBE. ALTHOUGH INFILTRATE IS POSSIBLE, FOLLOW-UP WILL BE NEEDED SINCE NEOPLASM IS NOT EXCLUDED. MINOR ATELECTASIS AND/OR SCARRING. POSSIBLE NONDISPLACED ANTERIOR LEFT SEVENTH RIB FRACTURE. NO OTHER ACUTE FINDINGS. Impression dictated by: No Stewart M.D. 01/23/2025 12:21 PM Dictation Location: [place] [address] Electronically authenticated by: [id number] Y Date: 01/23/2025 12:21 Dictated By: No Stewart M.D. Signed By: 01/23/25 1223 DD/ 1221 TD/TT: Endodontic Assistant:VITAMIN D 25 [place] Reviewed date:01/16/2025 07:14:25 PM Interpretation: Performing Lab: Notes/Report: [facility] ,Vitamin D8.1 30-100 ng/mL Vit D sufficient <20 ng/mL Vit D deficient >100 ng/mL Potential Toxicity 20-<30 ng/mL Vit D insufficient Performing Lab:see note - [facility] LBPROF CHEM 8 (BAS METB) Reviewed date:01/16/2025 07:14:25 PM Interpretation: Performing Lab: Notes/Report: [facility] ,Bohgue134506-693 mmol/LPotassium4.63.5-5.1 mmol/GGlcerzkn88323-250 mmol/LCarbon Uxtxdme15.021.0-32.0 mmol/LAnion Gap13.9Vqxjgqn90718-996 mg/dLBlood Urea Jjroblbz27.07.0-18.0 mg/dLCreatinine1.270.70-1.30 mg/dLEstimated GFR ( Suki>60>=60 mL/min/1.73m 2Estimated GFR (Non- Ame55>=60 mL/min/1.73m 2 BUN Creatinine Ratio15.0Tnijmpu2.78.5-10.1 mg/dLPerforming Lab:see note - [facility] LBMAGNESIUM Reviewed date:01/16/2025 07:14:25 PM Interpretation: Performing Lab: Notes/Report: [facility] ,Magnesium1.81.8-2.4 mg/dLPerforming Lab:see noteML - [facility] LB LIVER PROFILE Reviewed date:01/16/2025 07:14:25 PM Interpretation: Performing Lab: Notes/Report: [facility] ,Bilirubin Total0.50.2-1.0 mg/dLBilirubin Direct0.10.0-0.2 mg/dLAspartate Amino Latblkgoxal5673-35 U/LAlanine Zdncqnvrnxmodolx6550-57 U/LAlkaline Ivrbjrtoabm769 46-116 U/LTotal Protein6.56.4-8.2 g/dLAlbumin Level2.83.4-5.0 g/dLGlobulin3.7 Albumin Globulin Ratio0.8Performing Lab:see noteML - [facility] LBCBC AUTO DIFF Reviewed date:01/16/2025 07:14:25 PM Interpretation: Performing Lab: Notes/Report: [facility] ,White Blood Count8.44.0-11.0 10 3/uLRed Blood Count2.854.70-6.10 10 6/uL Hemoglobin9.414.0-18.0 g/rFPksojpbkne17.042.0-54.0 %Mean Corpuscular Nhffsx92.2 80.0-94.0 fLMean Corpuscular Pajmnoayop01.025.9-34.0 pgMean Corpuscular HGB Conc 33.629.9-35.2 g/dLRed Cell Distribution Width15.611.0-15.0 %Platelet Yztst223 150-450 10 3/uLMean Platelet Volume9.49.5-13.5 fLNeutrophils Percent Auto71.7 43.0-75.0 %Lymphocytes Percent Auto16.020.5-60.0 %Monocytes Percent Auto6.91.7- 12.0 %Eosinophils Percent Auto4.60.9-7.0 %Basophils Percent Auto0.40.2-2.0 % Immature Granulocytes Pct Auto0.40.0-0.5 %Neutrophils Absolute Auto6.01.4-6.5 10 3/uLLymphocytes Absolute Auto1.31.2-3.8 10 3/uLMonocytes Absolute Auto0.60.3-0.8 10 3/uLEosinophils Absolute Auto0.40.0-0.7 10 3/uLBasophils Absolute Auto0.00.0- 0.1 10 3/uLImmature Granulocytes Abs Auto0.030.00-0.03 10 3/uLPerforming Lab:see noteML - [facility] LBPROF CHEM 8 (BAS METB) Reviewed date:01/16/2025 07:14:25 PM Interpretation: Performing Lab: Notes/Report: [facility] ,Mxbhtk035648-113 mmol/LPotassium4.53.5-5.1 mmol/LOxiftnqx37484-538 mmol/LCarbon Rrsoubp86.421.0-32.0 mmol/LAnion Gap13.1Hsedrdo51713-181 mg/dLBlood Urea Acuxmyeo36.07.0-18.0 mg/dLCreatinine1.340.70-1.30 mg/dLEstimated GFR ( Suki>60>=60 mL/min/1.73m 2Estimated GFR (Non- Ame52>=60 mL/min/1.73m 2 BUN Creatinine Ratio14.9Dwqjjtn4.68.5-10.1 mg/dLPerforming Lab:see noteML - [facility] LBECG 12 lead Reviewed date:01/15/2025 11:55:31 AM Interpretation: Performing Lab: Notes/Report: Source Facility: [facility] [place] [address] [place] [address] Electrocardiograph Report Signed Patient: SHAHRZAD MCNAIR MR#: [id number] : 1945 Acct:[id number] Age/Sex: 79 / M ADM Date: 01/15/25 Loc: ER Attending Dr: Ordering Physician: Indira Vogt Date of Service: 01/15/25 Procedure(s): ECG 12 lead Accession Number(s): [id number] cc: [facility] Test Date: 2025-01-15 Pat Name: SHAHRZAD MCNAIR Department: Room: - 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 Measurements Intervals Arthur Rate: 74 P: 58 NV: 196 QRS: 44 QRSD: 84 T: 52 [...] Signed By: 01/15/25 1007 DD/ 0703 TD/TT: Endodontic Assistant:CBC AUTO DIFF Reviewed date:01/16/2025 07:14:25 PM Interpretation: Performing Lab: Notes/Report: [facility] ,White Blood Count8.74.0-11.0 10 3/uLRed Blood Count3.054.70-6.10 10 6/uL Ychncemike99.214.0-18.0 g/mHVyoisychgc34.642.0-54.0 %Mean Corpuscular Volume 100.380.0-94.0 fLMean Corpuscular Oyblyvsrau34.425.9-34.0 pgMean Corpuscular HGB Conc33.329.9-35.2 g/dLRed Cell Distribution Width15.711.0-15.0 %Platelet Count 060877-658 10 3/uLMean Platelet Volume9.49.5-13.5 fLNeutrophils Percent Auto73.7 43.0-75.0 %Lymphocytes Percent Auto15.920.5-60.0 %Monocytes Percent Auto6.31.7- 12.0 %Eosinophils Percent Auto3.30.9-7.0 %Basophils Percent Auto0.60.2-2.0 % Immature Granulocytes Pct Auto0.20.0-0.5 %Neutrophils Absolute Auto6.41.4-6.5 10 3/uLLymphocytes Absolute Auto1.41.2-3.8 10 3/uLMonocytes Absolute Auto0.60.3-0.8 10 3/uLEosinophils Absolute Auto0.30.0-0.7 10 3/uLBasophils Absolute Auto0.10.0- 0.1 10 3/uLImmature Granulocytes Abs Auto0.020.00-0.03 10 3/uLPerforming Lab:see noteML - [facility] LBXR chest 1V Reviewed date:12/15/2024 12:56:51 PM Interpretation: Performing Lab: Notes/Report: Source Facility: [facility] [place] [address] [place] [address] XRay Report Signed Patient: SHAHRZAD MCNAIR MR#: [id number] : 1945 Acct:[id number] Age/Sex: 79 / M ADM Date: Loc: ER Attending Dr: Ordering Physician: Hui Loredo M.D. Date of Service: 12/15/24 Procedure(s): XR chest 1V Accession Number(s): [id number] cc: Zachariah Avila M.D.; Hui Loredo M.D. [place] [address] Patient Name: SHAHRZAD MCNAIR MRN: [id number] date: 1945 Sex: M Assigned Patient Location: ER Current Patient Location: ER Accession/Order Number: [id number] Exam Date: 12/15/2024 09:00 Report Date: 12/15/2024 [...] IMPRESSION: NO ACUTE PROCESS. Impression dictated by: Wislon Trinidad Jr., D.O. 12/15/2024 9:14 AM Dictation Location: [place] [address] Electronically authenticated by: [id number] Y Date: 12/15/2024 09:14 Dictated By: Wilson Trinidad M.D. Signed By: 12/15/2417 DD/ 3 TD/TT: Endodontic Assistant:CT head/brain wo con Reviewed date:12/15/2024 12:56:51 PM Interpretation: Performing Lab: Notes/Report: Source Facility: [place] [address] [place] [address] CT Scan Report Signed Patient: SHAHRZAD MCNAIR MR#: [id number] : 1945 Acct:[id number] Age/Sex: 79 / M ADM Date: 12/15/24 Loc: ER Attending Dr: Ordering Physician: Hui Loredo M.D. Date of Service: 12/15/24 Procedure(s): CT head/brain wo con Accession Number(s): [id number] cc: Zachariah Avila M.D. [place] [address] Patient Name: SHAHRZAD MCNAIR MRN: [id number] date: 1945 Sex: M Assigned Patient Location: ER Current Patient Location: ED.MAIN Accession/Order Number: [id number] Exam Date: 12/15/2024 09:00 Report Date: 12/15/2024 [...] Jr., D.OMook 12/15/2024 9:23 AM Dictation Location: [place] [address] Electronically authenticated by: [id number] Y Date: 12/15/2024 09:23 Dictated By: Wilson Trinidad M.D. Signed By: 12/15/24924 DD/ 2 TD/TT: Endodontic Assistant:ECG 12 lead Reviewed date:12/16/2024 12:31:31 PM Interpretation: Performing Lab: Notes/Report: Source Facility: [place] [address] [place] [address] Electrocardiograph Report Signed Patient: SHAHRZAD MCNAIR MR#: [id number] : 1945 Acct:[id number] Age/Sex: 79 / M ADM Date: 12/15/24 Loc: ER Attending Dr: Ordering Physician: Hui Loredo M.D. 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 Measurements Intervals Arthur Rate: 67 P: 90 NV: 188 QRS: 55 QRSD: 86 T: 51 QT: 468 QTc: 483 Interpretive Statements 1100 Sinus rhythm 1474 with frequent supraventricular premature complexes 8304 Long QTc interval 9150 abnormal ECG Compared to ECG 08/22/2024 02:28:25 No significant changes Electronically Signed On 12-16-2024 7:29:11 EDT by ANCA BUTLER M.D. Dictated By: ANCA BUTLER Signed By: 12/16/24 0729 DD/ 9 TD/TT: Endodontic Assistant:Troponin I High Sensitivity Reviewed date:12/15/2024 12:56:51 PM Interpretation: Performing Lab: Notes/Report: [facility] ,Troponin I High Sensitivity4.94.0-76.1 pg/mL DIAGNOSIS. NOTE: HIGH-SENSITIVITY TROPONIN ASSAY IS NOT INTENDED TO BE REFERENCE LIMIT (URL) OF TROPONIN, DEFINED THE 99TH CUT-OFF POINTS HAVE BEEN ESTABLISHED BASED ON THE FOURTH 99TH PERCENTILE = 76.2 PG/ML WITH OTHER DIAGNOSTIC AND CLINICAL INFORMATION. HAS BEEN CONFIRMED THE DECISION THRESHOLD FOR IA UNIVERSAL DEFINITION OF MYOCARDIAL INFARCTION. THE UPPER USED IN ISOLATION BUT SHOULD BE INTERPRETED IN CONJUNCTION PERCENTILE OF cTnI DISTRIBUTION IN A REFERENCE POPULATION, Performing Lab:see note - [facility] LBPROF CHEM 8 (BAS METB) Reviewed date:12/15/2024 12:56:51 PM Interpretation: Performing Lab: Notes/Report: [facility] ,Tgkecc538933-326 mmol/LPotassium4.33.5-5.1 mmol/OZmimfyrr7762-239 mmol/LCarbon Ghsjeqy44.321.0-32.0 mmol/LAnion Gap14.0Cialhuf78642-044 mg/dLBlood Urea Xeqbomwy09.07.0-18.0 mg/dLCreatinine1.640.70-1.30 mg/dLEstimated GFR ( Rshpesw47>=60 mL/min/1.73m 2Estimated GFR (Non- Ame41>=60 mL/min/1.73m 2 BUN Creatinine Ratio14.5Dhqbrri4.78.5-10.1 mg/dLPerforming Lab:see noteML - [facility] LBCBC AUTO DIFF Reviewed date:12/15/2024 12:56:51 PM Interpretation: Performing Lab: Notes/Report: [facility] ,White Blood Count10.04.0-11.0 10 3/uLRed Blood Count3.334.70-6.10 10 6/uL Lppqdjksip78.114.0-18.0 g/zDXujmfpugpj32.442.0-54.0 %Mean Corpuscular Volume 100.380.0-94.0 fLMean Corpuscular Ihkdltycsa55.325.9-34.0 pgMean Corpuscular HGB Conc33.229.9-35.2 g/dLRed Cell Distribution Width15.011.0-15.0 %Platelet Count 574957-922 10 3/uLMean Platelet Knshco01.09.5-13.5 fLNeutrophils Percent Auto 75.643.0-75.0 %Lymphocytes Percent Auto13.220.5-60.0 %Monocytes Percent Auto6.7 1.7-12.0 %Eosinophils Percent Auto3.90.9-7.0 %Basophils Percent Auto0.30.2-2.0 % Immature Granulocytes Pct Auto0.30.0-0.5 %Neutrophils Absolute Auto7.51.4-6.5 10 3/uLLymphocytes Absolute Auto1.31.2-3.8 10 3/uLMonocytes Absolute Auto0.70.3-0.8 10 3/uLEosinophils Absolute Auto0.40.0-0.7 10 3/uLBasophils Absolute Auto0.00.0- 0.1 10 3/uLImmature Granulocytes Abs Auto0.030.00-0.03 10 3/uLPerforming Lab:see noteML - [facility] LBPROF CHEM 8 (BAS METB) Reviewed date:08/22/2024 09:36:42 PM Interpretation: Performing Lab: Notes/Report: [facility] ,Fehgez407738-256 mmol/LPotassium4.03.5-5.1 mmol/CCisykpkp17221-525 mmol/LCarbon Jagrytt80.921.0-32.0 mmol/LAnion Gap11.7Ozarwya84220-256 mg/dLBlood Urea Pquegdnl69.07.0-18.0 mg/dLCreatinine1.480.70-1.30 mg/dLEstimated GFR ( Tzbxmys61>=60 mL/min/1.73m 2Estimated GFR (Non- Ame46>=60 mL/min/1.73m 2 BUN Creatinine Ratio10.9Ovhnusq6.98.5-10.1 mg/dLPerforming Lab:see noteML - [facility] LBCBC AUTO DIFF Reviewed date:08/22/2024 09:36:42 PM Interpretation: Performing Lab: Notes/Report: [facility] ,White Blood Count7.24.0-11.0 10 3/uLRed Blood Count3.414.70-6.10 10 6/uL Ejkdqgraro80.714.0-18.0 g/yVAthmcwphno37.142.0-54.0 %Mean Corpuscular Volume 100.080.0-94.0 fLMean Corpuscular Zpvdpvlkgy79.325.9-34.0 pgMean Corpuscular HGB Conc34.329.9-35.2 g/dLRed Cell Distribution Width15.711.0-15.0 %Platelet Count 691831-787 10 3/uLMean Platelet Volume9.99.5-13.5 fLNeutrophils Percent Auto61.9 43.0-75.0 %Lymphocytes Percent Auto24.120.5-60.0 %Monocytes Percent Auto8.11.7- 12.0 %Eosinophils Percent Auto4.70.9-7.0 %Basophils Percent Auto0.40.2-2.0 % Immature Granulocytes Pct Auto0.80.0-0.5 %Neutrophils Absolute Auto4.41.4-6.5 10 3/uLLymphocytes Absolute Auto1.71.2-3.8 10 3/uLMonocytes Absolute Auto0.60.3-0.8 10 3/uLEosinophils Absolute Auto0.30.0-0.7 10 3/uLBasophils Absolute Auto0.00.0- 0.1 10 3/uLImmature Granulocytes Abs Auto0.060.00-0.03 10 3/uLPerforming Lab:see noteML - [facility] LBCA echo doppler complete Reviewed date:04/10/2024 02:49:18 PM Interpretation: Performing Lab: Notes/Report: Source Facility: [place] [address] Cardiology Report Signed Patient: SHAHRZAD MCNAIR MR#: [id number] : 1945 Acct:[id number] Age/Sex: 78 / M ADM Date: 04/05/24 Loc: [place] 213-[address]: Eulalio Valencia D.O. Ordering Physician: Eulalio Valencia D.O. Date of Service: 04/05/24 Procedure(s): CA echo doppler complete Accession Number(s): [id number] cc: Zachariah Avila M.D.; Eulalio Valencia D.O. Patient Name: SHAHRZAD MCNAIR MR#: [id number] : 1945 Exam Date: 04/05/2024 Ordering Doctor: [...] Signed By: 04/09/24 1326 DD/ 1325 TD/TT: Endodontic Assistant:PROF [facility](COMP METB) Reviewed date:01/23/2025 07:32:19 PM Interpretation: Performing Lab: Notes/Report: [facility] ,Ketvzx268378-711 mmol/LPotassium4.13.5-5.1 mmol/OHrutocur7625-782 mmol/LCarbon Jfpbidy60.921.0-32.0 mmol/LAnion Gap9.2Anzsbhq73839-173 mg/dLBlood Urea Nitrogen 16.07.0-18.0 mg/dLCreatinine1.450.70-1.30 mg/dLEstimated GFR ( Vwrqmwp02 >=60 mL/min/1.73m 2Estimated GFR (Non- Ame47>=60 mL/min/1.73m 2BUN Creatinine Ratio11.8Mqpukrg7.68.5-10.1 mg/dLBilirubin Total0.90.2-1.0 mg/dL Aspartate Amino Wkjisnqkiod9394-61 U/LAlanine Etjyxzdvdaqoospn4455-92 U/L Alkaline Cucnqtmpykp00022-172 U/LTotal Protein6.86.4-8.2 g/dLAlbumin Level2.8 3.4-5.0 g/dLGlobulin4.0Albumin Globulin Ratio0.7Performing Lab:see noteML - [facility] LBCBC AUTO DIFF Reviewed date:01/23/2025 07:32:19 PM Interpretation: Performing Lab: Notes/Report: [facility] ,White Blood Count9.64.0-11.0 10 3/uLRed Blood Count3.104.70-6.10 10 6/uL Ubmujfdbwa43.314.0-18.0 g/lUMlheazeyax02.642.0-54.0 %Mean Corpuscular Alygye54.7 80.0-94.0 fLMean Corpuscular Dthnwtsuwm51.225.9-34.0 pgMean Corpuscular HGB Conc 33.729.9-35.2 g/dLRed Cell Distribution Width15.811.0-15.0 %Platelet Lnauk196 150-450 10 3/uLMean Platelet Volume9.19.5-13.5 fLNeutrophils Percent Auto74.9 43.0-75.0 %Lymphocytes Percent Auto11.820.5-60.0 %Monocytes Percent Auto9.11.7- 12.0 %Eosinophils Percent Auto3.70.9-7.0 %Basophils Percent Auto0.30.2-2.0 % Immature Granulocytes Pct Auto0.20.0-0.5 %Neutrophils Absolute Auto7.21.4-6.5 10 3/uLLymphocytes Absolute Auto1.11.2-3.8 10 3/uLMonocytes Absolute Auto0.90.3- 0.8 10 3/uLEosinophils Absolute Auto0.40.0-0.7 10 3/uLBasophils Absolute Auto0.0 0.0-0.1 10 3/uLImmature Granulocytes Abs Auto0.020.00-0.03 10 3/uLPerforming Lab:see noteML - [facility] LBUrine Culture - [facility] Reviewed date:12/18/2024 09:16:04 PM Interpretation: Performing Lab: Notes/Report: [facility] ,Urine Culture - [facility]See Below For Report No Growth 2 Days Urine Culture - [facility] Urine Culture - [facility] No Growth 2 Days Urine Culture - [facility] Urine Culture - [facility]MCTesting [facility] No Growth 2 Days Urine Culture - [facility] Urine Culture - [id number] [place] [address] No Growth 2 Days Urine Culture - [facility] Performing Lab:see noteML - [facility] LBUA RANDOM W or MICROSCOPIC Reviewed date:12/15/2024 12:56:51 PM Interpretation: Performing Lab: Notes/Report: [facility] ,Color UrineLT. YELLOWYELLOWClarity UrineCLEARCLEARSpecific Mason Urine1.020 1.005-1.025pH Urine6.05.0-9.0Protein UrineNEGATIVENEG/TRACE mg/dLGlucose Urine [id number] mg/dLBilirubin UrineNEGATIVENEGATIVEKetones UrineNEGATIVENEGATIVE mg/dLBlood UrineNEGATIVENEGATIVENitrite UrineNEGATIVENEGATIVEUrobilinogen Urine 0.20.2-1.0 EU/dLLeukocyte Esterase UrineTRACENEGATIVEWBC Urine5-10NONE SEEN #/HPFRBC Urine0-20-2 #/HPFBacteria UrineTRACENONE SEEN #/HPFMucus UrineNONE SEEN NONE SEENSquamous Epithelial Cell UrineFEWNONE/RARE #/LPFCrystals Seen?None Seen None Seen #/HPFCast Seen?NONE SEENNONE SEEN #/LPFUrine Culture IndicatedYES-[facility] Performing Lab:see noteML - [facility] LBECG 12 lead Reviewed date:08/22/2024 09:36:42 PM Interpretation: Performing Lab: Notes/Report: Source Facility: [facility] [place] [id number] Electrocardiograph Report Signed Patient: SHAHRZAD MCNAIR MR#: [id number] : 1945 Acct:[id number] Age/Sex: 78 / M ADM Date: 08/22/24 Loc: ER Attending Dr: Ordering Physician: Chevy Wood Date of Service: 08/22/24 Procedure(s): ECG 12 lead Accession Number(s): [id number] cc: [facility] Test Date: 2024-08-22 Pat Name: SHAHRZAD MCNAIR Department: Room: - 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 Measurements Intervals Arthur Rate: 57 P: 50 NV: 192 QRS: 47 QRSD: 84 T: 51 QT: 526 QTc: 520 Interpretive Statements 1100 Sinus rhythm 8304 Long QTc interval 9150 abnormal ECG Compared to ECG 04/05/2024 07:36:09 No significant changes Electronically Signed On 08-22-2024 7:09:37 EDT by ANCA BUTLER M.D. Dictated By: ANCA BUTLER Signed By: 08/22/24 0710 DD/ 7 TD/TT: Endodontic Assistant: Reason For Referral Reason Schedule COLUMBA please Diagnosis 1 Lung cancer (C34.90) Referral Organization [facility] Referring Provider First Name Desiree Referring Provider Last Name Polo Referring Provider Speciality Family Med icine Referred Organization [facility] Referred Provider Iman Cid Referred Address [address] [facility] [address] [facility] [address],[place], [place],[address], Referred Provider Specialty Hematology/O ncology Referral Priority Routine Medications Medication SIG (Take, Route, Frequency, Duration) Notes Start Date End Date Status Lisinopril 10 MG TAKE 1/2 TABLET BY MOUTH ONCE E VERYDAY; Duration: 90 ActiveMagnesium Oxide 400 MG1 tablet with food Orally bidActiveAspirin Adult Low Dose 81 MG1 tablet Orally Once a dayActiveAtorvastatin Calcium 80 MG1 tablet Orally Once a day4ActiveSotalol HCl 80 MGTAKE 1 TABLET BY MOUTH EVERY 12 HOURS FOR 30 DAYS; Duration: 90ActiveNitroglycerinActive Social History Tobacco Use: Social History Observation Description Date Details (start date - stop date) Former Smoker 03/23/1963 - 03/23/2019 Tobacco Control (Standard) Question Answer Notes Tobacco use: Former smoker When did you start smoking?03/23/1963When did you stop smoking?03/23/2019How long has it been since you last smoked?1-5 yearsAdditional Findings: Tobacco yau-augaRi-iytw heavy cigarette smoker (40+/day)AUDIT-C (Standard) Question Answer Notes Did you have a drink containing alcohol in the p ast year? No Ojiuiz7YjysixtanokliqRuluxfyr Problems Problem Type SNOMED Code ICD Code Onset Dates Problem Status W/U Status Risk Notes Problem Atrial fibrillation (14782768) Atrial fib rillation (I48.91) ActiveconfirmedProblemHyperlipidaemia (33442552)Hyperlipemia (E78.5)Active confirmedProblemHypertension (82315177)Hypertension (I10)ActiveconfirmedProblem COPD - Chronic obstructive pulmonary disease (42499124)COPD (chronic obstructive pulmonary disease) (J44.9)ActiveconfirmedProblemStroke (021459262)Stroke (I63.9)ActiveconfirmedProblemAnemia (068809389)Anemia (D64.9)Activeconfirmed ProblemMyocardial infarction (93296712)IA (myocardial infarction) (I21.3)Active confirmedProblemLung cancer (141907684)Lung cancer (C34.90)Activeconfirmed ProblemHilar mass (076197740)Hilar mass (R91.8)ActiveconfirmedProblemExpressive aphasia (958689149)Expressive aphasia (R47.01)ActiveconfirmedProblemAltered mental status (393617848)Altered mental status (R41.82)ActiveconfirmedProblem Hallucinations (0952797)Hallucinations (R44.3)ActiveconfirmedProblemMetabolic encephalopathy (84688475)Acute metabolic encephalopathy (G93.41)Activeconfirmed ProblemEssential hypertension (76201588)BP (high blood pressure) (I10)Active confirmed Vital Signs Blood pressure diastolic 68 mm Hg 01/24/2025 Pftxjc12 in01/24/2025lood pressure slebiuma670 mm Hg01/24/20250418Udwncs108 lbs 01/24/2025BMI22.95 kg/m201/24/2025 Encounters Encounter Location Date Provider Diagnosis [facility] [address] [place] [address] 04/11/2024 Desiree Cuellar Hypertension I10 [facility] [address] [place] [address] 07/12/2024 Desiree Cuellar Hypertension I10 [facility] [address] [place] [address] 12/23/2024 Desiree Cuellar UTI (urinary tract infection) N39.0 [facility] [address] [place] [address] 01/24/2025 Desiree Cuellar Hilar mass R91.8 ; Hallucinations R44.3 ; Anemia D64.9 and Rib fracture S22.39XA [facility] [address] [place] [address] 01/31/2025 Desiree Cuellar [facility] [place] [address] 04/06/2024Paaddi [facility] [place] [address]/10/2024Paaddi CuellarHypertension Z41FrgsffmS[facility] [place] [address]/Paaddi [facility] [place] [address]/Desiree [facility] [place] [address]/Doug [facility] [address] [place] [address]/Desiree [facility] [place] [address]/ Zane [facility] [place] [address]/Paaddi [facility] [place] [address]/05/2024gilles [facility] [address] [place] [address]/12/2024Pajovona Elizabetsaint anne's hospitalLung cancer C34.90 and Hallucinations R44.3 Assessments Encounter Date Diagnosis (ICD Code) Assessment Notes Treatment Notes Treatment Clinical Notes Section Notes 04/11/2024 Hypertension (ICD-10 - I10) BP looks good fu cardiology 07/12/2024Hypertension (ICD-10 - I10) continue meds fu cardiology as scheduled BP good today 12/23/2024UTI (urinary tract infection) (ICD-10 - N39.0) defers repeat UA CS denies sx of enlarged prostate continue monitor, fu prn 01/24/2025Hilar mass (ICD-10 - R91.8) thursday biopsy scheduled has been losing wt 01/24/2025Hallucinations (ICD-10 - R44.3)no more holding ieqlmqhw03/08/2025 Hypertension (ICD-10 - I10)01/30/2025Lung cancer (ICD-10 - C34.90)01/30/2025 Hallucinations (ICD-10 - R44.3)01/24/2025nemia (ICD-10 - D64.9) repeat labs 1m check iron has had 2 colonoscopies, does not want another 01/24/2025Rib fracture (ICD-10 - S22.39XA) tripped taking tylenol 01/24/2025Otherrepeat cbc, cmp, check iron 1m Plan Of Treatment Pending Test Test Name Order Date HEMOGLOBIN A1C (GLYCO) 09/27/2024 INSULIN, TOTAL 09/27/2024 LIPID PANEL (CHOL/TRIG/HDL/LDL) 09/28/19 25 CBC WITH DIFF 04/11/2024 URIC ACID 09/27/2024 PSA, TOTAL 04/11/2024 Holter Monitor 24 Hour 10/21/2023 MRI Brain w/ + w/o Contrast 01/30/2025 THYROID PANEL (T4/TSH/FREE T3) PSA, SCREENING 09/27/2024 CMP (COMP MET WILCOX) w/eGFR CKD-EPI 2024 CMP (COMP MET WILCOX) w/eGFR CKD-EPI 2024 CBC WITH DIFF 09/27/2024 Next Appt Details Provider Name:Desiree chandler, 02/28/2025 10:30:00 AM, [address] [place], [address], Insurance Providers Payer Name Payer Address Payer Phone Subscriber Number Group Number Insured Name Patient Relationship to Insured Coverage Start Date Coverage End Date [place] [address] [place] [address] [id number] Julia Mcnair - patient is the insured Medical (General) History Medical History History ICD Code Hypertension I10 COPD (chronic obstructive pulmonary dise ase) J44.9 Atrial fibrillation I48.91 Stroke I63.9 IA (myocardial infarction) I21.3 Surgical History Surgery Date(Month/Year) CHOLECYSTECTOMY Plate and Pin in Right ElbowLumbar surgery- disc r1Gnpsslez- bilateral TonsillectomyHospitalization History Reason Date(Month/Year) Encephalopathy 09/2023
--- OUTSIDE RECORDS SUMMARY | 2025-02-01 06:43 | XMS_ITS | Clinical Summary ---
Author Organization [facility] Address [address] [place] [address] Phone Care Team Providers Care Transfer Worker Name Role Phone Raphael Avila MD Primary Care Provider [phone] Allergies Active AllergyReactionsCriticalityNoted DateCommentsCoconut FbdSpwew86/09/2023 Medications MedicationSigDispense QuantityRefillsLast FilledStart DateEnd DateStatus aspirin [...] Problems ProblemNoted DateDiagnosed DateBMI 24.0-24.9, adult10/26/2024Prolonged QT wpdmdisa33/06/2025TIA (transient ischemic attack)04/20/2024Stenosis of right carotid xyhzhz6501/28/2024Former tsdyrd4007/30/20237978Pdgwgg73/09/2023Essential mbwysztzjmyq58/09/3385Vtqqqvpdgmrfta08/09/2023ersistent atrial fibrillation 01/29/2023Single vessel coronary uyjkyse9301/29/2023High risk medication use 01/29/20237012Sjzslr29/09/2023MI 26.0-26.9,adult01/29/2023 Encounters DateTypeDepartmentCare YbelNhrvsumghob61/03/2025 2:00 PM EDTAncillary Procedure [address] [place] [address] Kristin Mcmanus LPN High risk medication use; Persistent atrial fibrillation (Multi) Discharge Disposition: Home11/23/20243578Svthrr62/22/[address] [place] [address] Irena Lynn LPN Persistent atrial fibrillation (Multi)11/09/2024 2:00 PM EDTAncillary Procedure [address] [place] [address] Clyde Yoo MA Persistent atrial fibrillation (Multi) (Primary Dx); High risk medication use11/09/2024Travelfrom Last 3 Months Immunizations ImmunizationAdministration DatesNext DueInfluenza, Klusjfrjoni33/01/2018Pfizer Purple Cap PZKD-TgA-628/,06/12/2020,05/21/2020 Family History Medical HistoryRelationNameCommentsNo Known ProblemsFatherNo Known Problems MotherRelationNameStatusCommentsFatherMother Social History Tobacco UseTypesPacks/DayYears UsedDateSmoking Tobacco: FormerCigarettesQuit: 2019Smokeless Tobacco: Never Tobacco Cessation:Counseling Given: Not Answered Alcohol UseStandard Drinks/WeekCommentsYes2 (1 standard drink = 0.6 oz pure alcohol)occasionallySex and Gender InformationValueDate RecordedSex Assigned at BirthNot on fileLegal JxyJthq11/26/2022 6:44 PM ESTGender IdentityNot on file Sexual OrientationNot on file Last Filed Vital Signs Vital SignReadingTime TakenCommentsBlood Dwvkving230/5809 4:38 PM EDT Ipuri7159 4:38 PM EDTTemperature--Respiratory Rate--Oxygen Saturation-- Inhaled Oxygen Concentration--Uumtfl11.6 kg (182 lb)11/23/2024 4:38 PM EDTHeight 185.4 cm (6' 1 )11/23/2024 4:38 PM EDTBody Mass Index24.01011/23/2024 4:38 PM EDT Plan of Treatment DateTypeDepartmentCare Team (Latest Contact Info)Qshkieausll61/19/2026 3:00 PM EDTOffice Visit [facility] [address] [facility] [address] [place] [address] Sherlyn Larson MD [address] [facility] [address], [address] [place] [address] Health MaintenanceDue DateLast DoneCommentsLipid Panel1945Medicare Annual Wellness Visit (AWV)1945Hepatitis C Fxqmkzgkb10/03/1965Pneumococcal Vaccine (1 of 2 - PCV)1965DTaP/Tdap/Td Vaccines (1 - Tdap)1968Zoster Vaccines (1 of 2)1996RSV High Risk: (Elderly (60+) or Population) (1 - 1-dose 75+ series)2Diabetes Bannigwam56/08/370518/10/2021Influenza Vaccine (#1)COVID-19 Vaccine ( season)2024 01/15/2021, 06/12/2020, 9119AedliknfrbcMerjysurwbak45/27/2020Colorectal Cancer ScreeningDiscontinuedIrritable Bowel RgxqbopbTdvtnkyzfwea14/27/2020CT ColonographyDiscontinuedFIT-DNA (Cologuard)DiscontinuedFITDiscontinuedHIB VaccinesAged OutNo longer eligible based [...] medication use Persistent atrial fibrillation (Multi) ECG 12-ZHWXOiesnuy76/20/2025 1:08 PM EDT High risk medication use Persistent atrial fibrillation (Multi) YQGETCDPYFU51/27/2020 from Last 3 Months or Most Recently Relevant to Health Maintenance Results * ECG 12 Lead (11/23/2024 1:19 PM EDT) Only the most recent of2 resultswithin the time period is included. Specimen (Source)Anatomical Location / LateralityCollection Method / Volume Collection TimeReceived Time Narrative [facility] - 11/23/2024 4:55 PM EDT Sinus rhythm with occasional PACs QTc interval is 501 ms Authorizing ProviderResult TypeResult StatusMourrosa Larson [facility] ORDERABLES Edited Result - FinalPerforming OrganizationAddressCity/State/ZIP CodePhone Number [facility] * COLONOSCOPY (04/18/2019)Anatomical RegionLateralityModalityEndoscopy Narrative 04/18/2019 Ordered by an unspecified provider. Authorizing ProviderResult TypeResult StatusOnbase ConversionENDOSCOPY PROCEDURE ORDERABLESFinal Result from Last 3 Months or Most Recently Relevant to Health Maintenance Insurance * Guarantor: Ciaran McnairAccount TypeRelation to PatientDate of BirthPhone Billing AddressPersonal/DozixaGksn[birth year][address] [address] Care Teams Team MemberRelationshipSpecialtyStart Date Raphael Avila MD [address] [place] [facility] [place] [address] PCP - GeneralFamily Medicine04/20/24
== END 2025-02-01 06:40 | disposition home or self-care (01) ==
LOC: MRI 06:39
PROVIDERS: PCP Family Medicine; Visit Provider Nurse Practitioner Family
DX: R44.3 Hallucinations, unspecified (principal); C34.90 Malignant neoplasm of unspecified part of unspecified bronchus or lung
CPT/HCPCS: 70553; A9575

== ENCOUNTER 2025-02-09 07:56 | Outpatient (RCR) | payer MEDICARE, SELFPAY ==
[2025-02-09 09:32] LABS: Hematocrit 33.9 % (42.0-54.0); Hemoglobin 11.4 g/dL (14.0-18.0); Immature Granulocytes Abs Auto 0.04 10^3/uL (0.00-0.03); Immature Granulocytes Pct Auto 0.4 % (0.0-0.5); Lymphocytes Absolute Auto 1.2 10^3/uL (1.2-3.8); Mean Corpuscular HGB Conc 33.6 g/dL (29.9-35.2); Mean Corpuscular Hemoglobin 32.6 pg (25.9-34.0); Mean Corpuscular Volume 96.9 fL (80.0-94.0); Platelet Count 319 10^3/uL (150-450); Red Blood Count 3.50 10^6/uL (4.70-6.10); White Blood Count 11.1 10^3/uL (4.0-11.0)
[2025-02-09 09:54] LABS: Alanine Aminotransferase 38 U/L (16-63); Albumin Globulin Ratio 0.8; Albumin Level 3.3 g/dL (3.4-5.0); Alkaline Phosphatase 173 U/L (46-116); Anion Gap 14.7; Aspartate Amino Transferase 24 U/L (15-37); Blood Urea Nitrogen 29.0 mg/dL (7.0-18.0); Calcium 9.1 mg/dL (8.5-10.1); Carbon Dioxide 26.1 mmol/L (21.0-32.0); Chloride 98 mmol/L (98-107); Estimated GFR (African America 47 (>=60 mL/min/1.73m^2); Estimated GFR (Non-African Ame 39 (>=60 mL/min/1.73m^2); Globulin 4.4 g/dL; Glucose 131 mg/dL (74-106); Potassium 4.8 mmol/L (3.5-5.1); Sodium 134 mmol/L (136-145); Total Protein 7.7 g/dL (6.4-8.2)
[2025-02-09 10:58] LABS: Iron 48.0 ug/dL (65.0-175.0); Percent Iron Saturation 17.6 %; Total Iron Binding Capacity 272.0 ug/dL (250.0-450.0)
[2025-02-09 11:11] LABS: Ferritin 172.0 ng/mL (26.0-388.0)
== END 2025-02-19 23:59 | disposition home or self-care (01) ==
LOC: HEMC 07:56
PROVIDERS: PCP Family Medicine; Visit Provider Internal Medicine Hematology & Oncology
DX: C34.12 Malignant neoplasm of upper lobe, left bronchus or lung (principal); D64.9 Anemia, unspecified; I25.10 Atherosclerotic heart disease of native coronary artery without angina pectoris; I25.2 Old myocardial infarction; I48.91 Unspecified atrial fibrillation; M19.90 Unspecified osteoarthritis, unspecified site; Z87.891 Personal history of nicotine dependence; Z90.49 Acquired absence of other specified parts of digestive tract; R06.09 Other forms of dyspnea
CPT/HCPCS: 36415; 80053; 82728; 83540; 83550; 85025; G0463

== ENCOUNTER 2025-03-07 13:03 | Outpatient (RCR) | payer MEDICARE, SELFPAY | END 2025-03-22 23:59 | disposition home or self-care (01) | LOC: HEMC 13:03 | PROVIDERS: PCP Family Medicine; Visit Provider Internal Medicine Hematology & Oncology | DX: C34.12 Malignant neoplasm of upper lobe, left bronchus or lung (principal); D64.9 Anemia, unspecified; R11.2 Nausea with vomiting, unspecified; I48.91 Unspecified atrial fibrillation; I25.10 Atherosclerotic heart disease of native coronary artery without angina pectoris; I25.2 Old myocardial infarction; Z87.891 Personal history of nicotine dependence | CPT/HCPCS: G0463 ==

== ENCOUNTER 2025-03-08 09:25 | Outpatient (OUT) | payer MEDICARE, SELFPAY ==
--- OUTSIDE RECORDS SUMMARY | 2025-01-16 05:30 | XMS_ITS ---
Author Organization The [facility] in [place] Address [address] [place] [address] Care Team Providers Care Sanforizer Name Role Phone Desiree Cuellar Primary Care Provider [phone] REASON FOR VISIT ER- Left AMA- MASS Encounters Encounter Location Date Provider Diagnosis [facility] [address] [place] [address] 01/16/2025 Desiree Cuellar Plan Of Treatment No Information Progress Notes * Ciaran EDGARDOB:1945 (79 yo M)Acc No.[id number]:01/16/2025 UNLOCKED PROGRESS NOTE Progress Note Patient: Ciaran LOVE [facility] CNPDOB:1945 ???Age:79 Y???Sex:MaleDate:01/16/2025Phone:[phone]:[address] [facility] [address], [place], [place] Subjective: * Chief Complaints: * 1 . ER- Left AMA- MASS. * Medical History: Objective: * Vitals: Assessment: Plan: * Treatment: * * Electronic signature of Desiree Cuellar NP, UTILITY WORKER [employer].B2B MANAGED SERVICE SALES EXEC.[id number] on 03/08/2025 at 09:34 AM ESTSign off status: PendingVisit Status:?CANCPHONE (Cancelled Phone) * Provider: Shannon STRE[address]), B2B MANAGED SERVICE SALES EXEC Date: 1 Generated for Printing/Faxing/eTransmitting on:?03/08/2025 09:34 AM EST
--- OUTSIDE RECORDS SUMMARY | 2025-02-28 05:30 | XMS_ITS ---
Author Organization [facility] [place] Address [address] [place] [address] Care Team Providers Care Market Researcher Name Role Phone Desiree Cuellar Primary Care Provider REASON FOR VISIT 1 month f/u Encounters Encounter Location Date Provider Diagnosis [facility] [address] [place] [address] 02/28/2025 Desiree Cuellar Plan Of Treatment No Information Progress Notes * Ciaran MCNAIRDOB:1945 (79 yo M)Acc No.[id number]:02/28/2025 UNLOCKED PROGRESS NOTE Progress Note Patient: Ciaran LOVE :Wiley Cuellar (TTC) CNPDOB:1945 ???Age:79 Y???Sex:MaleDate:02/28/2025Phone:[phone]:[address] [address] [address], [place], [id number] Subjective: * Chief Complaints: * 1 . 1 month f/u. * Medical History: Objective: * Vitals: Assessment: Plan: * Treatment: * * Electronic signature of Desiree Cuellar NP, PARI MUTUEL CLERK.SPINNING FRAME CHANGER.[id number] on 03/08/2025 at 09:34 AM ESTSign off status: PendingVisit Status:?N/S N/C (No Show/No Charge) * Provider: Shannon Cuellar (TTC), SPINNING FRAME CHANGER Date: 05/01/2024 Generated for Printing/Faxing/eTransmitting on:?03/08/2025 09:34 AM EST
--- OUTSIDE RECORDS SUMMARY | 2025-03-06 03:30 | XMS_ITS ---
Author Organization [facility] [place] Address [address] [place] [address] Care Team Providers Care Director Of Annual Giving Name Role Phone Desiree Cuellar Primary Care Provider [phone] REASON FOR VISIT Labs Encounters Encounter Location Date Provider Diagnosis [facility] [address] [place] [address] 03/06/2025 Desiree Cuellar Plan Of Treatment No Information Progress Notes * Ciaran MCNAIRDOB:1945 (79 yo M)Acc No.[id number]:03/06/2025 Patient:?Ciaran MCNAIR :1945???Age:79 Y???Sex:MalePhone:[phone] Address:[address] [place] [address], [address] Subjective: * Chief Complaints: * L abs * Medical History: * Surgical History: * Hospitalization/Major Diagno stic Procedure: * Medications: Objective: * Vitals: * Physical Examination: ??? Assessment: Plan: * Treatment: * Procedure Codes: * true * Date:?Generated for Printing/Faxing/eTransmitting on:?03/08/2025 09:34 AM EST
--- OUTSIDE RECORDS SUMMARY | 2025-03-08 03:39 | XMS_ITS ---
Author Organization [facility] [place] Address [address] [place] [address] Care Team Providers Care Best Second Jobs Name Role Phone Desiree Cuellar Primary Care Provider REASON FOR VISIT labs Encounters Encounter Location Date Provider Diagnosis [facility] [address] [facility] [place] [address] [facility] [place] [address] 03/08/2025 Desiree Cuellar Hypertension I10 ; Hyperlipemia E78.5 and Anemia D64.9 Assessments Encounter Date Diagnosis (ICD Code) Assessment Notes Treatment Notes Treatment Clinical Notes Section Notes 03/08/2025 Hypertension (ICD-10 - I10) 03/08/2025Hyperlipemia (ICD-10 - E78.5)03/08/2025nemia (ICD-10 - D64.9) Plan Of Treatment Pending Test Test Name Order Date COMPREHENSIVE METABOLIC PROFILE WITH GFR 03/08/2025 CBC W/AUTO DIFF 03/08/2025 IRON 03/08/2025 Progress Notes * Ciaran MCNAIRDOB:1945 (79 yo M)Acc No.[id number]:03/08/2025 Patient:?Ciaran MCNAIR :1945???Age:79 Y???Sex:MalePhone:[phone] Address:[address] [place] [address] [place] [address], [address] Subjective: * Chief Complaints: * L abs * Medical History: * Surgical History: * Hospitalization/Major Diagno stic Procedure: * Medications: Objective: * Vitals: * Physical Examination: ??? Assessment: * Assessment: 1.?Hypertension - I10 (Primary)???2.?Hyperlipemia - E78.5???3.?Anemia - D64.9??? Plan: * Treatment: ?LAB: COMPREHENSIVE METABOLIC PROFILE WITH GFR ?LAB: CBC W/AUTO DIFF ?LAB: IRON2.?Hyperlipemia?LAB: COMPREHENSIVE METABOLIC PROFILE WITH GFR ?LAB: CBC W/AUTO DIFF ?LAB: IRON3.?Anemia?LAB: COMPREHENSIVE METABOLIC PROFILE WITH GFR ?LAB: CBC W/AUTO DIFF ?LAB: IRON * Procedure Codes: * true * Date:?Generated for Printing/Faxing/eTransmitting on:?03/08/2025 09:34 AM EST
--- OUTSIDE RECORDS SUMMARY | 2025-03-08 09:34 | XMS_ITS | Clinical Summary ---
Author Organization [facility] Address [address] [facility], [address] [place] [address] Care Team Providers Care Door Framer Name Role Phone Unavailable Primary Care Provider [...] at Discharge) Active Problems ProblemNoted DateDiagnosed DateHemorrhagic bewizq3512/03/2021trial fibrillation with RVR12/02/2021rimary /12/2022Type 2 diabetes mellitus without complication, without long-term current use of dftekjj17/12/2022COPD (chronic obstructive pulmonary disease)12/02/2021AF (paroxysmal atrial fibrillation) 11/29/20216847Xyvvut97/09/2022erebrovascular accident (CVA)2Otitis media with effusion, left11/28/2021 Family [...] InformationValueDate RecordedSex Assigned at BirthNot on fileLegal SjwMbvn0809/22/2021 7:59 PM EDTGender IdentityNot on fileSexual OrientationNot on file Last Filed Vital Signs Vital SignReadingTime TakenCommentsBlood Gqfifulc437/8312/04/2021 10:00 AM EDT Snopm099512/04/2021 10:00 AM HXNSbpfaqizayg93.6 ??C (97.9 ??F)12/04/2021 8:00 AM EDTRespiratory Ftag759012/04/2021 10:00 AM EDTOxygen Aizknyixkz51%12/04/2021 10:00 AM EDTInhaled Oxygen Concentration--Yfewit05 kg (207 lb 3.7 oz)11/28/2021 6:29 AM XXRAbljed969.4 cm (6' 1 )11/28/2021 6:29 AM EDTBody Mass Index27.34011/28/2021 6:29 AM EDT Plan of Treatment Health MaintenanceDue DateLast DoneCommentsDepression Ifswce9310/23/1958Diabetic Alb to Cr ratio (uACR) test1964Hepatitis C lxjqzt6210/23/1964DTaP/Tdap/Td vaccine (1 - Tdap)1965Pneumococcal 50+ years Vaccine (1 of 1 - PCV) 1996Shingles vaccine (1 of 2)1996Respiratory Syncytial Virus (RSV) or age 60 yrs+ (1 - 1-dose 75+ series)10/23/20211553Xqjnfb38/08/2023 11/28/2021GFR test (Diabetes, CKD 3-4, OR last GFR 15-59)/, 12/03/2021, 12/01/2021, Additional history existsFlu vaccine (#1)10/21/2024 COVID-19 Vaccine (2024- season), 06/12/2020, 1A1C test (Diabetic or Prediabetic)Mapilcfvlhtw95/08/2022Hepatitis A vaccineAged OutNo longer eligible based on [...] topic Procedures Procedure NamePriorityDate/TimeAssociated DiagnosisCommentsBASIC METABOLIC PANEL Gofwmzl0612/04/2021 6:18 AM EDT LIPID WLIRYZmbluia08/08/2022 7:37 AM EDT HEMOGLOBIN Q1DBduwvjy43/08/2022 3:59 AM EDT from Last 3 Months or Most Recently Relevant to Health Maintenance Results * (ABNORMAL) Basic Metabolic Panel (12/04/2021 6:18 AM EDT)ComponentValueRef RangeTest MethodAnalysis TimePerformed AtPathologist CwyfxjsdkMtusjjl953(H)70 - 99 mg/dL12/04/2021 6:18 AM EDTMERCY LHDZZQWLDOPVYWC223 - 23 mg/dL12/04/2021 6:18 AM EDTMERCY LABORATORIESCreatinine0.69(L)0.70 - 1.20 mg/dL12/04/2021 6:18 AM EDTMERCY LABORATORIESCalcium8.3(L)8.6 - 10.4 mg/dL12/04/2021 6:18 AM EDT [facility] ENRPPTFYUOFCMwnqkq478(L)135 - 144 mmol/L12/04/2021 6:18 AM EDTMERCY LABORATORIESPotassium4.03.7 - 5.3 mmol/L12/04/2021 6:18 AM EDTMERCY MVMLIAFACCAJJgrviyul55683 - 107 mmol/L12/04/2021 6:18 AM EDTMERCY LABORATORIES NL75956 - 31 mmol/L12/04/2021 6:18 AM EDTMERCY LABORATORIESAnion Aku948 - 17 mmol/L12/04/2021 6:18 AM EDTMERCY LABORATORIESGFR Non->60>60 mL/min12/04/2021 6:18 AM EDTMERCY LABORATORIESGFR >60>60 mL/min12/04/2021 6:18 AM EDTMERCY LABORATORIESGFR Uwhfwod4812/04/2021 6:18 AM EDTMERCY LABORATORIESComment: Average GFR for 70 or more years old: 75 mL/min/1.73sq m Chronic Kidney Disease: <60 mL/min/1.73sq m Kidney failure: <15 mL/min/1.73sq m ? eGFR calculated using average adult body mass. Additional eGFR calculator available at: ? http://www.[employer]/multiple_crcl_2012.htm ? Specimen (Source)Anatomical Location / LateralityCollection Method / Volume Collection TimeReceived TimeBLOOD SPECIMEN / Olszqth0312/04/2021 6:18 AM EDT 12/04/2021 6:30 AM EDT Narrative Authorizing ProviderResult TypeResult StatusAdina Do ADMINISTRATIVE OPERATIONS COORDINATOR - CNPCHEMISTRY ORDERABLESFinal ResultPerforming OrganizationAddressCity/State/ZIP CodePhone Number [facility] [address] [place] [address], [facility] [phone] * (ABNORMAL) Lipid Panel (11/28/2021 7:37 AM EDT)ComponentValueRef RangeTest MethodAnalysis TimePerformed AtPathologist QlixpeodyYumgssfiirl777<200 mg/dL 11/28/2021 7:37 AM EDTMERCY LABORATORIESComment: Cholesterol Guidelines: <200 Desirable 200-240 ??Borderline >240 Undesirable HDL34(L)>40 mg/dL11/28/2021 7:37 AM EDTMERCY LABORATORIESComment: HDL Guidelines: <40 Undesirable 40-59 ?Borderline >59 Desirable LDL Kbqwmirovjt189 - 130 mg/dL11/28/2021 7:37 AM EDTMERCY LABORATORIESComment: [...] MDCHEMISTRY ORDERABLES Final ResultPerforming OrganizationAddressCity/State/ZIP CodePhone Number [place] [address] [address] [phone] * (ABNORMAL) Hemoglobin A1c (11/28/2021 3:59 AM EDT)ComponentValueRef RangeTest MethodAnalysis TimePerformed AtPathologist SignatureHemoglobin A1C8.1(H)4.0 - 6.0 %11/28/2021 3:59 AM EDTMERCY LABORATORIESEstimated Avg Sbtjwgz949wc/dL 11/28/2021 3:59 AM EDTMERCY LABORATORIESComment: The ADA and AACC recommend providing the estimated average glucose result to permit better patient understanding of their HBA1c result. Specimen (Source)Anatomical Location / LateralityCollection Method / Volume Collection TimeReceived TimeBLOOD SPECIMEN / Cnlmajr4811/28/2021 3:59 AM EDT 11/28/2021 4:15 AM EDT Narrative Authorizing ProviderResult TypeResult StatusPaul Eber MDCHEMISTRY ORDERABLES Final ResultPerforming OrganizationAddressCity/State/ZIP CodePhone Number [facility] [address] [place] [address], [facility] [phone] from Last 3 Months or Most Recently Relevant to Health Maintenance Insurance * Guarantor: Davon Mcnair TypeRelation to PatientDate of BirthPhone Billing AddressPersonal/XfojjjHvgl39/03/1946 ([place]) [address] [place] [address] * Guarantor: Davon Mcnair TypeRelation to PatientDate of BirthPhone Billing AddressNationEating Recovery [facility] - Personal/FamilySelf [address] [place], [place] [address] Advance Directives * Full Code (Latest Code Status on File) Date ActivatedDate InactivatedComments11/28/2021 3:26 AM12/04/2021 2:54 PM
--- OUTSIDE RECORDS SUMMARY | 2025-03-08 09:34 | XMS_ITS | Clinical Summary ---
Author Organization [facility] Address [address] [place] [address] Phone Care Team Providers Care Harness Worker Name Role Phone Raphael Avila MD Primary Care Provider [phone] Allergies Active AllergyReactionsCriticalityNoted DateCommentsCoconut KvpTcifc77/09/2023 Medications MedicationSigDispense QuantityRefillsLast FilledStart DateEnd DateStatus aspirin [...] Problems ProblemNoted DateDiagnosed DateBMI 24.0-24.9, adult10/26/2024Prolonged QT omxsnken43/06/2025TIA (transient ischemic attack)04/20/2024Stenosis of right carotid xjhdqd9501/28/2024Former spwijf7507/30/20230196Wpbrvc45/09/2023Essential ckmvvrjsghki62/09/2674Tmvctgvrhcszbm33/09/2023ersistent atrial fibrillation 01/29/2023Single vessel coronary dgvclwx1101/29/2023High risk medication use 01/29/20238405Tmpufo48/09/2023MI 26.0-26.9,adult01/29/2023 Immunizations ImmunizationAdministration DatesNext DueInfluenza, Hqfhhoweeax64/01/2018Pfizer Purple Cap PQON-PhU-041/26/2021,06/12/2020,05/21/2020 Family History Medical HistoryRelationNameCommentsNo Known ProblemsFatherNo Known Problems MotherRelationNameStatusCommentsFatherMother Social History Tobacco UseTypesPacks/DayYears UsedDateSmoking Tobacco: FormerCigarettesQuit: 2019Smokeless Tobacco: Never Tobacco Cessation:Counseling Given: Not Answered Alcohol UseStandard Drinks/WeekCommentsYes2 (1 standard drink = 0.6 oz pure alcohol)occasionallySex and Gender InformationValueDate RecordedSex Assigned at BirthNot on fileLegal MugQkui17/26/2022 6:44 PM ESTGender IdentityNot on file Sexual OrientationNot on file Last Filed Vital Signs Vital SignReadingTime TakenCommentsBlood Trlaqdgn043/5809 4:38 PM EDT Avxmm0201 4:38 PM EDTTemperature--Respiratory Rate--Oxygen Saturation-- Inhaled Oxygen Concentration--Cjorln31.6 kg (182 lb)11/23/2024 4:38 PM EDTHeight 185.4 cm (6' 1 )11/23/2024 4:38 PM EDTBody Mass Index24.0109 4:38 PM EDT Plan of Treatment DateTypeDepartmentCare Team (Latest Contact Info)Txqtzhrunbm60/19/2026 3:00 PM EDTOffice Visit at [facility] [address] [phone] Sherlyn Larson MD [address] [facility] [address], [place] [address] [place] [address] Health MaintenanceDue DateLast DoneCommentsLipid Panel1946Medicare Annual Wellness Visit (AWV)1946Hepatitis C Fbqdxrhzw31/03/1965Pneumococcal Vaccine (1 of 2 - PCV)1965DTaP/Tdap/Td Vaccines (1 - Tdap)1968Zoster Vaccines (1 of 2)1996RSV High Risk: (Elderly (60+) or Population) (1 - 1-dose 75+ series)2Diabetes Amnfxgclo96/10/2021Influenza Vaccine (#1)COVID-19 Vaccine ( season)2024 01/15/2021, 06/12/2020, 1831XbyxnxhrlntMatbgljrdrpk67/27/2020, 04/18/2019 Colorectal Cancer ScreeningDiscontinuedIrritable Bowel SyndromeDiscontinued 04/18/2019CT ColonographyDiscontinuedFIT-DNA (Cologuard)DiscontinuedFIT DiscontinuedHIB VaccinesAged OutNo longer eligible based on patient's [...] patient's age to complete this topic Rotavirus VaccinesAged OutNo longer eligible based on patient's age to complete this topicSigmoidoscopyDiscontinued Procedures Procedure NamePriorityDate/TimeAssociated KyxeyzkdvGvtdbxhpRKCUXLQPBSQ61/27/2020 from Last 3 Months or Most Recently Relevant to Health Maintenance Results * COLONOSCOPY (04/18/2019)Anatomical RegionLateralityModalityEndoscopy Narrative 04/18/2019 Ordered by an unspecified provider. Authorizing ProviderResult TypeResult StatusOnbase ConversionENDOSCOPY PROCEDURE ORDERABLESFinal Result from Last 3 Months or Most Recently Relevant to Health Maintenance Insurance * Guarantor: Davon Mcnair TypeRelation to PatientDate of BirthPhone Billing AddressPersonal/QeivcdYrls[birth year][address] [address] MemberSubscriberPlan / Payer (Effective 2011-Present)Name:Ciaran Mcnair Member ID:[id number] Relation to Subscriber:SelfName:Ciaran Mcnair Subscriber ID:[id number] Payer ID:Not on file Group ID:Not on file Type:Not on file Address: [place] [id number] * Guarantor: Davon Mcnair TypeRelation to PatientDate of BirthPhone Billing AddressPersonal/PakpaqDpqc12/03/1946 [address] [address] Care Teams Team MemberRelationshipSpecialtyStart DateEnd Date Raphael Avila MD [address] [facility] [place] [address] [facility]
--- OUTSIDE RECORDS SUMMARY | 2025-03-08 09:34 | XMS_ITS | Clinical Summary ---
Author Organization [facility] Address [address] [place] [address] Care Team Providers Care Core Composer Feeder Name Role Phone Unallocated, [facility] Provider Primary [...] MOUTH03/11/2023ctive Active Problems No known active problems Family History RelationNameStatusCommentsFatherDeceasedMotherDeceased Social History Tobacco UseTypesPacks/DayYears UsedDateSmoking Tobacco: UnknownPassive Smoke Exposure: Never Tobacco Cessation:Counseling Given: Yes Alcohol UseStandard Drinks/WeekCommentsYes1 (1 standard drink = 0.6 oz pure alcohol)coffee dailySex and Gender InformationValueDate RecordedSex Assigned at BirthNot on fileLegal BvlXplf9206/04/2022 6:56 PM EDTGender IdentityNot on file Sexual OrientationNot on file Last Filed Vital Signs Vital SignReadingTime TakenCommentsBlood Wtxjwlrh649/7710 1:51 PM EDT Iwhut476801/07/2024 1:51 PM EDTTemperature--Respiratory Wkzv745711/03/2024 1:40 PM EDTOxygen Saturation--Inhaled Oxygen Concentration--Srtdgh63.2 kg (212 lb) 11/03/2024 1:40 PM YCMIgrnvz555.4 cm (6' 1 )11/03/2024 1:40 PM EDTBody Mass Index27.9711/03/2024 1:40 PM EDT Plan of Treatment Health MaintenanceDue DateLast DoneCommentsMedicare Annual Wellness (AWV) 1946Diabetes: Retinopathy Gqvztnpiw12/03/1957Diabetes: Urine Protein Ohysmyszt60/03/1966Pneumococcal Vaccine: 65+ Years (1 of 2 - PCV)1965 Diabetes: Hemoglobin A1C/2COVID-19 Vaccine ( season), 06/12/2020, 05/21/2020Influenza Vaccine (#1) 5267BhkwcodsezqGqiohzvmzvim71/27/2020, 04/18/2019, 02/21/2016 Colorectal Cancer ScreeningDiscontinuedCT ColonographyDiscontinuedFIT-DNA DiscontinuedFITDiscontinuedFOBTDiscontinuedSigmoidoscopyDiscontinued Insurance Care Teams Team MemberRelationshipSpecialtyStart DateEnd Date Unallocated, [facility] Provider, [address] [place], [place] [id number] PCP - GeneralFamily Medicine06/04/23
--- OUTSIDE RECORDS SUMMARY | 2025-03-08 09:34 | XMS_ITS | Clinical Summary ---
Author Organization [facility] tem Address [id number] [place] [address] Care Team Providers Care Propeller Engineer Name Role Phone Unavailable Primary Care Provider Unavailabl e Social History Tobacco UseTypesPacks/DayYears UsedDateSmoking Tobacco: Never AssessedSex and Gender InformationValueDate RecordedSex Assigned at BirthNot on fileLegal Sex Male10/04/2023 2:13 PM EDTGender IdentityNot on fileSexual OrientationNot on file Plan of Treatment Health MaintenanceDue DateLast DoneCommentsDepression Bemeuevje78/03/1959Tobacco Osbohbkzs83/03/1959DTaP,Tdap and Td Vaccines (1 - Tdap)1965Zoster (Shingles) Vaccine (1 of 2)1996Fall Risk Vfdpkzqzi14/03/2012RSV ( or age 60+ yrs) (1 - 1-dose 75+ series)2COVID-19 Vaccine ( season)510/, 06/12/2020, 05/21/2020Influenza Dtomksc2911/21/2024 03/23/2017 Medical Devices Not on file Insurance
--- OUTSIDE RECORDS SUMMARY | 2025-03-08 09:34 | XMS_ITS | Patient Health Record ---
Author Organization The [facility] in [place] Address [address] [place] [address] Care Team Providers Care Prick Stitcher Name Role Phone Desiree Peña Primary Care Provider JesúsiggyZane [phone] Allergies Allergen (clinical drug ingredient) Drug/Non Drug Allergy documented on EMR Reaction Allergy Type Onset Date Status coconut allergenic extract Coconut (Diagnostic) Unknown Drug Allergy Active Results Component Value Reference Range Notes PROF CHEM 8 (BAS METB) Reviewed date:12/15/2024 12:56:51 PM Interpretation: Performing Lab: Notes/Report: [facility] , Sodium 135 136-145 mmol/L Potassium4.33.5-5.1 mmol/WAwajsxzw0121-326 mmol/LCarbon Ufcvecb54.321.0-32.0 mmol/LAnion Gap14.1Ezbkebk37716-687 mg/dLBlood Urea Jugoebql45.07.0-18.0 mg/dL Creatinine1.640.70-1.30 mg/dLEstimated GFR ( Lmrnopo46>=60 mL/min/1.73m 2 Estimated GFR (Non- Ame41>=60 mL/min/1.73m 2BUN Creatinine Ratio14.0 Calcium8.78.5-10.1 mg/dLPerforming Lab:see noteML - [facility] LB Troponin I High Sensitivity Reviewed date:12/15/2024 12:56:51 PM Interpretation: Performing Lab: Notes/Report: [facility] ,Troponin I High Sensitivity4.94.0-76.1 pg/mL DIAGNOSIS. NOTE: HIGH-SENSITIVITY TROPONIN ASSAY IS NOT INTENDED TO BE REFERENCE LIMIT (URL) OF TROPONIN, DEFINED THE 99TH CUT-OFF POINTS HAVE BEEN ESTABLISHED BASED ON THE FOURTH 99TH PERCENTILE = 76.2 PG/ML WITH OTHER DIAGNOSTIC AND CLINICAL INFORMATION. HAS BEEN CONFIRMED THE DECISION THRESHOLD FOR [place] UNIVERSAL DEFINITION OF MYOCARDIAL INFARCTION. THE UPPER USED IN ISOLATION BUT SHOULD BE INTERPRETED IN CONJUNCTION PERCENTILE OF cTnI DISTRIBUTION IN A REFERENCE POPULATION, Performing Lab:see noteML - [facility] LBCT head/brain wo con Reviewed date:12/15/2024 12:56:51 PM Interpretation: Performing Lab: Notes/Report: Source Facility: [place] [address] [place] [address] CT Scan Report Signed Patient: SHAHRZAD MCNAIR MR#: [id number] : 1945 Acct:[id number] Age/Sex: 79 / M ADM Date: 12/15/24 Loc: ER Attending Dr: Ordering Physician: Hui Loredo M.D. Date of Service: 12/15/24 Procedure(s): CT head/brain wo con Accession Number(s): [id number] cc: Zachariah Avila M.D. [place] [address] Patient Name: SHAHRZAD MCNAIR MRN: [facility]:[id number] date: 1945 Sex: M Assigned Patient Location: ER Current Patient Location: ED.MAIN Accession/Order Number: [id number] Exam Date: 12/15/2024 09:00 Report Date: 12/15/2024 [...] ABNORMALITY. Impression dictated by: Wilson Trinidad Jr., D.O. 12/15/2024 9:23 AM Dictation Location: [place] [address] Electronically authenticated by: [id number] Y Date: 12/15/2024 09:23 Dictated By: Wilson Trinidad M.D. Signed By: 12/15/24924 DD/ 2 TD/TT: Pool Nurse:XR chest 1V Reviewed date:12/15/2024 12:56:51 PM Interpretation: Performing Lab: Notes/Report: Source Facility: [place] [address] XRay Report Signed Patient: SHAHRZAD MCNAIR MR#: [id number] : 1945 Acct:[id number] Age/Sex: 79 / M ADM Date: Loc: ER Attending Dr: Ordering Physician: Hui Loredo M.D. Date of Service: 12/15/24 Procedure(s): XR chest 1V Accession Number(s): [id number] cc: Zachariah Avila M.D.; Hui Loredo M.D. [place] [address] Patient Name: SHAHRZAD MCNAIR MRN: [id number] date: 1945 Sex: M Assigned Patient Location: ER Current Patient Location: ER Accession/Order Number: [id number] Exam Date: 12/15/2024 09:00 Report Date: 12/15/2024 [...] Jr., D.O. 12/15/2024 9:14 AM Dictation Location: [place] [address] Electronically authenticated by: [id number] Y Date: 12/15/2024 09:14 Dictated By: Wilson Trinidad M.D. Signed By: 12/15/24916 DD/ 3 TD/TT: Pool Nurse:PROF Centeno(COMP METB) Reviewed date:01/23/2025 07:32:19 PM Interpretation: Performing Lab: Notes/Report: [facility] ,Wniuwn503771-240 mmol/LPotassium4.13.5-5.1 mmol/YEazhsebc7357-666 mmol/LCarbon Qboffzw18.921.0-32.0 mmol/LAnion Gap9.5Rbjtbkx11436-983 mg/dLBlood Urea Nitrogen 16.07.0-18.0 mg/dLCreatinine1.450.70-1.30 mg/dLEstimated GFR ( Juevkbo71 >=60 mL/min/1.73m 2Estimated GFR (Non- Ame47>=60 mL/min/1.73m 2BUN Creatinine Ratio11.0Ljlxbli2.68.5-10.1 mg/dLBilirubin Total0.90.2-1.0 mg/dL Aspartate Amino Nkbanrnywnb9906-43 U/LAlanine Ipxhimixyxpjzsdf4698-91 U/L Alkaline Csocarrvekf79207-106 U/LTotal Protein6.86.4-8.2 g/dLAlbumin Level2.8 3.4-5.0 g/dLGlobulin4.0Albumin Globulin Ratio0.7Performing Lab:see noteML - [facility] LBCT chest wo con Reviewed date:01/23/2025 07:32:19 PM Interpretation: Performing Lab: Notes/Report: Source Facility: [facility]-[address] [place] [address] [address] [address] Scan Report Signed Patient: SHAHRZAD MCNAIR MR#: [id number] : 1945 Acct:[id number] Age/Sex: 79 / M ADM Date: 01/23/25 Loc: ER Attending Dr: Ordering Physician: Natalie Dash Date of Service: 01/23/25 Procedure(s): CT chest wo con Accession Number(s): [id number] cc: Zachariah Avila M.D. [place] [id number] Patient Name: SHAHRZAD MCNAIR MRN: [facility]:[id number] date: 1945 Sex: M Assigned Patient Location: ER Current Patient Location: ER Accession/Order Number: [id number] Exam Date: 01/23/2025 11:38 Report Date: 01/23/2025 [...] Stewart M.D. 01/23/2025 12:21 PM Dictation Location: [place] [address] Electronically authenticated by: [id number] Y Date: 01/23/2025 12:21 Dictated By: No Stewart M.D. Signed By: 01/23/25 1223 DD/ 1221 TD/TT: Pool Nurse:MR head/brain wo/w con Reviewed date:02/02/2025 08:50:52 AM Interpretation: Performing Lab: Notes/Report: Source Facility: [place] [address] Magnetic Resonance Report Signed Patient: SHAHRZAD MCNAIR MR#: [id number] : 1945 Acct:[id number] Age/Sex: 79 / M ADM Date: 02/01/25 Loc: MRI Attending Dr: DESIREE PEÑA Ordering Physician: DESIREE PEÑA Date of Service: 02/01/25 Procedure(s): MR head/brain wo/w con Accession Number(s): [id number] cc: DESIREE PEÑA ; Zachariah Avila M.D. [place] [address] Patient Name: SHAHRZAD MCNAIR MRN: [id number]:[id number] date: 1945 Sex: M Assigned Patient Location: MRI Current Patient Location: MRI Accession/Order Number: [id number] Exam Date: 02/01/2025 06:55 Report Date: 02/01/2025 10:29 At the request of: DESIREE PEÑA Procedure: MR head/brain wo/w con MR head/brain wo/w con 02/01/2025 7:51 AM SIGN AND SYMPTOMS: Recent fall, lung cancer diagnosis, weakness and difficulty ambulating PROTOCOL: Multiplanar multisequence MR images of the brain with and without IV contrast CONTRAST: 16 mL of intravenous Dotarem COMPARISON: 01/12/2025 FINDINGS: Extra axial spaces: There is age-related cortical atrophy. Hemorrhage: None. Ventricular system: Within normal limits. Basal cisterns: Within normal limits and not effaced. Cerebral parenchyma: Gliosis and encephalomalacia is noted in the right MCA territory predominantly affecting the right temporal and parietal lobes consistent with a remote infarct. This is present to a lesser extent in the left temporal and parietal region. Periventricular and subcortical white matter T2 and FLAIR hyperintense signal is noted suggesting chronic microvascular ischemic change. Midline shift: None.. Cerebellum: Within normal limits. Brainstem: Within normal limits. OTHER: Calvarium: Normal marrow signal. Vascular system: Satisfactory flow voids within the anterior and posterior circulation. Visualized Paranasal sinuses: Within normal limits. Visualized Orbits: Within normal limits. Visualized upper cervical spine: Within normal limits. Sella and skull base: Within normal limits. MR/MR head/brain wo/w con IMPRESSION: No evidence of intracranial metastatic disease. No acute intracranial pathology. 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 Impression dictated by: Robbie Fuentes M.D. 02/01/2025 10:29 AM Dictation Location: [place] [address] Electronically authenticated by: [id number] Y Date: 02/01/2025 10:29 Dictated By: Robbie Fuentes M.D. Signed By: 02/01/25 1032 DD/ 1029 TD/TT: Pool Nurse:CBC AUTO DIFF Reviewed date:02/09/2025 08:04:35 PM Interpretation: Performing Lab: Notes/Report: [facility] ,White Blood Count11.14.0-11.0 10 3/uLRed Blood Count3.504.70-6.10 10 6/uL Fisulwynjp37.414.0-18.0 g/nPRmhleidddr45.942.0-54.0 %Mean Corpuscular Mpbjki93.9 80.0-94.0 fLMean Corpuscular Vicducrkkl36.625.9-34.0 pgMean Corpuscular HGB Conc 33.629.9-35.2 g/dLRed Cell Distribution Width15.311.0-15.0 %Platelet Iknkt076 150-450 10 3/uLMean Platelet Volume9.69.5-13.5 fLNeutrophils Percent Auto77.5 43.0-75.0 %Lymphocytes Percent Auto10.520.5-60.0 %Monocytes Percent Auto9.31.7- 12.0 %Eosinophils Percent Auto1.80.9-7.0 %Basophils Percent Auto0.50.2-2.0 % Immature Granulocytes Pct Auto0.40.0-0.5 %Neutrophils Absolute Auto8.61.4-6.5 10 3/uLLymphocytes Absolute Auto1.21.2-3.8 10 3/uLMonocytes Absolute Auto1.00.3-0.8 10 3/uLEosinophils Absolute Auto0.20.0-0.7 10 3/uLBasophils Absolute Auto0.10.0- 0.1 10 3/uLImmature Granulocytes Abs Auto0.040.00-0.03 10 3/uLPerforming Lab:see noteML - [facility] LBFERRITIN Reviewed date:02/09/2025 08:04:35 PM Interpretation: Performing Lab: Notes/Report: [facility] ,Xobtqvlp049.026.0-388.0 ng/mLPerforming Lab:see noteML - [facility] LBPROF 14(COMP METB) Reviewed date:02/09/2025 08:04:35 PM Interpretation: Performing Lab: Notes/Report: [facility] ,Woryqv925171-716 mmol/LPotassium4.83.5-5.1 mmol/LUnrvubtp4566-709 mmol/LCarbon Ikgdqoz76.121.0-32.0 mmol/LAnion Gap14.4Jndocag61333-573 mg/dLBlood Urea Lfvlbycc42.07.0-18.0 mg/dLCreatinine1.720.70-1.30 mg/dLEstimated GFR ( Ffnajkt10>=60 mL/min/1.73m 2Estimated GFR (Non- Ame39>=60 mL/min/1.73m 2 BUN Creatinine Ratio16.7Iosdayw8.18.5-10.1 mg/dLBilirubin Total1.20.2-1.0 mg/dL Aspartate Amino Kojsuxurdik8249-47 U/LAlanine Yxmwlmhnwfcoablt5891-09 U/L Alkaline Macoeehrlhv53564-186 U/LTotal Protein7.76.4-8.2 g/dLAlbumin Level3.3 3.4-5.0 g/dLGlobulin4.4Albumin Globulin Ratio0.8Performing Lab:see noteML - [facility] LBCBC AUTO DIFF Reviewed date:01/23/2025 07:32:19 PM Interpretation: Performing Lab: Notes/Report: [facility] ,White Blood Count9.64.0-11.0 10 3/uLRed Blood Count3.104.70-6.10 10 6/uL Scgycrplra15.314.0-18.0 g/iGEldqstquut53.642.0-54.0 %Mean Corpuscular Tsmgid24.7 80.0-94.0 fLMean Corpuscular Bjwjyghdcp76.225.9-34.0 pgMean Corpuscular HGB Conc 33.729.9-35.2 g/dLRed Cell Distribution Width15.811.0-15.0 %Platelet Rzqzl332 150-450 10 3/uLMean Platelet Volume9.19.5-13.5 fLNeutrophils Percent Auto74.9 43.0-75.0 %Lymphocytes Percent Auto11.820.5-60.0 %Monocytes Percent Auto9.11.7- 12.0 %Eosinophils Percent Auto3.70.9-7.0 %Basophils Percent Auto0.30.2-2.0 % Immature Granulocytes Pct Auto0.20.0-0.5 %Neutrophils Absolute Auto7.21.4-6.5 10 3/uLLymphocytes Absolute Auto1.11.2-3.8 10 3/uLMonocytes Absolute Auto0.90.3-0.8 10 3/uLEosinophils Absolute Auto0.40.0-0.7 10 3/uLBasophils Absolute Auto0.00.0- 0.1 10 3/uLImmature Granulocytes Abs Auto0.020.00-0.03 10 3/uLPerforming Lab:see noteML - [facility] LBVITAMIN D 25 [place] Reviewed date:01/16/2025 07:14:25 PM Interpretation: Performing Lab: Notes/Report: [facility] ,Vitamin D8.1 30-100 ng/mL Vit D sufficient <20 ng/mL Vit D deficient >100 ng/mL Potential Toxicity 20-<30 ng/mL Vit D insufficient Performing Lab:see note - [facility] LBPROF CHEM 8 (BAS METB) Reviewed date:01/16/2025 07:14:25 PM Interpretation: Performing Lab: Notes/Report: [facility] ,Qodsgo324813-043 mmol/LPotassium4.63.5-5.1 mmol/JAjwcbomg14214-353 mmol/LCarbon Aiepdme65.021.0-32.0 mmol/LAnion Gap13.0Jlzyouy11232-611 mg/dLBlood Urea Qapvrtye41.07.0-18.0 mg/dLCreatinine1.270.70-1.30 mg/dLEstimated GFR ( Suki>60>=60 mL/min/1.73m 2Estimated GFR (Non- Ame55>=60 mL/min/1.73m 2 BUN Creatinine Ratio15.8Cvzjmwf2.78.5-10.1 mg/dLPerforming Lab:see noteML - [facility] LBMAGNESIUM Reviewed date:01/16/2025 07:14:25 PM Interpretation: Performing Lab: Notes/Report: [facility] ,Magnesium1.81.8-2.4 mg/dLPerforming Lab:see note - [facility] LB LIVER PROFILE Reviewed date:01/16/2025 07:14:25 PM Interpretation: Performing Lab: Notes/Report: [facility] ,Bilirubin Total0.50.2-1.0 mg/dLBilirubin Direct0.10.0-0.2 mg/dLAspartate Amino Ejisfvsqsng3097-60 U/LAlanine Wzxhgvcsjcrufmfz6690-46 U/LAlkaline Nnkmxmostkr220 46-116 U/LTotal Protein6.56.4-8.2 g/dLAlbumin Level2.83.4-5.0 g/dLGlobulin3.7 Albumin Globulin Ratio0.8Performing Lab:see noteML - [facility] LBCBC AUTO DIFF Reviewed date:01/16/2025 07:14:25 PM Interpretation: Performing Lab: Notes/Report: [facility] ,White Blood Count8.44.0-11.0 10 3/uLRed Blood Count2.854.70-6.10 10 6/uL Hemoglobin9.414.0-18.0 g/sNQjbzziegqs33.042.0-54.0 %Mean Corpuscular Rvqwix71.2 80.0-94.0 fLMean Corpuscular Ubimhstsgu69.025.9-34.0 pgMean Corpuscular HGB Conc 33.629.9-35.2 g/dLRed Cell Distribution Width15.611.0-15.0 %Platelet Zschc333 150-450 10 3/uLMean Platelet Volume9.49.5-13.5 fLNeutrophils Percent Auto71.7 43.0-75.0 %Lymphocytes Percent Auto16.020.5-60.0 %Monocytes Percent Auto6.91.7- 12.0 %Eosinophils Percent Auto4.60.9-7.0 %Basophils Percent Auto0.40.2-2.0 % Immature Granulocytes Pct Auto0.40.0-0.5 %Neutrophils Absolute Auto6.01.4-6.5 10 3/uLLymphocytes Absolute Auto1.31.2-3.8 10 3/uLMonocytes Absolute Auto0.60.3-0.8 10 3/uLEosinophils Absolute Auto0.40.0-0.7 10 3/uLBasophils Absolute Auto0.00.0- 0.1 10 3/uLImmature Granulocytes Abs Auto0.030.00-0.03 10 3/uLPerforming Lab:see noteML - [facility] LBPROF CHEM 8 (BAS METB) Reviewed date:01/16/2025 07:14:25 PM Interpretation: Performing Lab: Notes/Report: [facility] ,Iqkjdb412085-251 mmol/LPotassium4.53.5-5.1 mmol/QWcixbxtk07626-041 mmol/LCarbon Fxqyjsd46.421.0-32.0 mmol/LAnion Gap13.7Rvjyilk69763-414 mg/dLBlood Urea Wsvzhbsj35.07.0-18.0 mg/dLCreatinine1.340.70-1.30 mg/dLEstimated GFR ( Suki>60>=60 mL/min/1.73m 2Estimated GFR (Non- Ame52>=60 mL/min/1.73m 2 BUN Creatinine Ratio14.0Hythlqq1.68.5-10.1 mg/dLPerforming Lab:see noteML - [facility] LBXR ribs LT min 3V w CXR1V Reviewed date:01/15/2025 11:55:31 AM Interpretation: Performing Lab: Notes/Report: Source Facility: [place] [address] [place] [address] XRay Report Signed Patient: SHAHRZAD MCNAIR MR#: [id number] : 1945 Acct:[id number] Age/Sex: 79 / M ADM Date: 01/15/25 Loc: ER Attending Dr: Ordering Physician: Indira Vogt Date of Service: 01/15/25 Procedure(s): XR ribs LT min 3V w CXR1V Accession Number(s): [id number] cc: Zachariah Avila M.D.; Indira Vogt [place] [address] Patient Name: SHAHRZAD MCNAIR MRN: [facility]:[id number] date: 1945 Sex: M Assigned Patient Location: ER Current Patient Location: ED.MAIN Accession/Order Number: [id number] Exam Date: 01/15/2025 07:30 Report Date: 01/15/2025 [...] Francois M.D. 01/15/2025 8:56 AM Dictation Location: [place] [address] Electronically authenticated by: [id number] Y Date: 01/15/2025 08:56 Dictated By: Gilles Francois D.O. Signed By: 01/15/25 0858 DD/ TD/TT: Pool Nurse:ECG 12 lead Reviewed date:01/15/2025 11:55:31 AM Interpretation: Performing Lab: Notes/Report: Source Facility: [place] [address] Electrocardiograph Report Signed Patient: SHAHRZAD MCNAIR MR#: [id number] : 1945 Acct:[id number] Age/Sex: 79 / M ADM Date: 01/15/25 Loc: ER Attending Dr: Ordering Physician: Indira Vogt Date of Service: 01/15/25 Procedure(s): ECG 12 lead Accession Number(s): [id number] cc: [facility] Test Date: 2025-01-15 Pat Name: SHAHRZAD MCNAIR Department: Room: - Gender: Male Social Staff Worker: : 1945 Requested By: [id number] Order Number: [id number] Reading MD: ANCA BUTLER M.D. Measurements Intervals [place] Rate: 74 P: 58 NV: 196 QRS: [...] Signed By: 01/15/25 1007 DD/ 0703 TD/TT: Pool Nurse:Troponin I High Sensitivity Reviewed date:01/15/2025 11:55:31 AM Interpretation: Performing Lab: Notes/Report: [facility] ,Troponin I High Sensitivity6.74.0-76.1 pg/mL CUT-OFF POINTS HAVE BEEN ESTABLISHED BASED ON THE FOURTH NOTE: HIGH-SENSITIVITY TROPONIN ASSAY IS NOT INTENDED TO BE 99TH PERCENTILE = 76.2 PG/ML HAS BEEN CONFIRMED THE DECISION THRESHOLD FOR [place] PERCENTILE OF cTnI DISTRIBUTION IN A REFERENCE POPULATION, USED IN ISOLATION BUT SHOULD BE INTERPRETED IN CONJUNCTION WITH OTHER DIAGNOSTIC AND CLINICAL INFORMATION. DIAGNOSIS. UNIVERSAL DEFINITION OF MYOCARDIAL INFARCTION. THE UPPER REFERENCE LIMIT (URL) OF TROPONIN, DEFINED THE 99TH Performing Lab:see noteML - [facility] LBCBC no Diff (Hemogram) Reviewed date:01/15/2025 11:55:31 AM Interpretation: Performing Lab: Notes/Report: [facility] ,White Blood Count8.94.0-11.0 10 3/uLRed Blood Count3.064.70-6.10 10 6/uL Xtoxizezta25.114.0-18.0 g/yIPfyjfjzhmo01.442.0-54.0 %Mean Corpuscular Gxesvo04.3 80.0-94.0 fLMean Corpuscular Fcaklosppf75.025.9-34.0 pgMean Corpuscular HGB Conc 33.229.9-35.2 g/dLRed Cell Distribution Width15.711.0-15.0 %Platelet Mgvig849 150-450 10 3/uLMean Platelet Volume9.29.5-13.5 fLPerforming Lab:see noteML - [facility] LBPROF CHEM 8 (BAS METB) Reviewed date:01/15/2025 11:55:31 AM Interpretation: Performing Lab: Notes/Report: [facility] ,Vevrvd097025-099 mmol/LPotassium4.23.5-5.1 mmol/CSpubhdxm75843-435 mmol/LCarbon Yxsmthw26.421.0-32.0 mmol/LAnion Gap15.2Ovwsmhg80401-083 mg/dLBlood Urea Mosqvwva58.07.0-18.0 mg/dLCreatinine1.510.70-1.30 mg/dLEstimated GFR ( Wpwgcar23>=60 mL/min/1.73m 2Estimated GFR (Non- Ame45>=60 mL/min/1.73m 2 BUN Creatinine Ratio12.4Mopprxj2.68.5-10.1 mg/dLPerforming Lab:see noteML - [facility] LBCBC AUTO DIFF Reviewed date:01/16/2025 07:14:25 PM Interpretation: Performing Lab: Notes/Report: [facility] ,White Blood Count8.74.0-11.0 10 3/uLRed Blood Count3.054.70-6.10 10 6/uL Jkgaoiatkp47.214.0-18.0 g/kCIsfwwdaouq04.642.0-54.0 %Mean Corpuscular Volume 100.380.0-94.0 fLMean Corpuscular Bftgkyvwpr29.425.9-34.0 pgMean Corpuscular HGB Conc33.329.9-35.2 g/dLRed Cell Distribution Width15.711.0-15.0 %Platelet Count 946929-824 10 3/uLMean Platelet Volume9.49.5-13.5 fLNeutrophils Percent Auto73.7 43.0-75.0 %Lymphocytes Percent Auto15.920.5-60.0 %Monocytes Percent Auto6.31.7- 12.0 %Eosinophils Percent Auto3.30.9-7.0 %Basophils Percent Auto0.60.2-2.0 % Immature Granulocytes Pct Auto0.20.0-0.5 %Neutrophils Absolute Auto6.41.4-6.5 10 3/uLLymphocytes Absolute Auto1.41.2-3.8 10 3/uLMonocytes Absolute Auto0.60.3-0.8 10 3/uLEosinophils Absolute Auto0.30.0-0.7 10 3/uLBasophils Absolute Auto0.10.0- 0.1 10 3/uLImmature Granulocytes Abs Auto0.020.00-0.03 10 3/uLPerforming Lab:see noteML - [facility] LBECG 12 lead Reviewed date:12/16/2024 12:31:31 PM Interpretation: Performing Lab: Notes/Report: Source Facility: [facility]-[address] [place] [address] The [place] [id number] Electrocardiograph Report Signed Patient: SHAHRZAD MCNAIR MR#: [id number] : 1945 Acct:[id number] Age/Sex: 79 / M ADM Date: 12/15/24 Loc: ER Attending Dr: Ordering Physician: Hui Loredo M.D. 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 Measurements Intervals [place] Rate: 67 P: 90 NV: 188 QRS: 55 QRSD: 86 T: 51 QT: 468 QTc: 483 Interpretive Statements 1100 Sinus rhythm 1474 with frequent supraventricular premature complexes 8304 Long QTc interval 9150 abnormal ECG Compared to ECG 08/22/2024 02:28:25 No significant changes Electronically Signed On 12-16-2024 7:29:11 EDT by ANCA BUTLER M.D. Dictated By: ANCA BUTLER Signed By: 12/16/24 0729 DD/ 0840 TD/TT: Pool Nurse:Urine Culture - FR Reviewed date:12/18/2024 09:16:04 PM Interpretation: Performing Lab: Notes/Report: [facility] ,[facility] For Report No Growth 2 Days Urine Culture - [facility] [place] Culture - [facility] No Growth 2 Days Urine Culture - [facility] Urine Culture - FRTesting performed at [facility] No Growth 2 Days Urine Culture - [facility] Urine Culture - [id number] [place] [address] No Growth 2 Days Urine Culture - [facility] Performing Lab:see noteML - [facility] LBUA RANDOM W or MICROSCOPIC Reviewed date:12/15/2024 12:56:51 PM Interpretation: Performing Lab: Notes/Report: [facility] ,Color UrineLT. YELLOWYELLOWClarity UrineCLEARCLEARSpecific [place] Urine1.020 1.005-1.025pH Urine6.05.0-9.0Protein UrineNEGATIVENEG/TRACE mg/dLGlucose Urine TA054FSOCCQIR mg/dLBilirubin UrineNEGATIVENEGATIVEKetones UrineNEGATIVENEGATIVE mg/dLBlood UrineNEGATIVENEGATIVENitrite UrineNEGATIVENEGATIVEUrobilinogen Urine 0.20.2-1.0 EU/dLLeukocyte Esterase UrineTRACENEGATIVEWBC Urine5-10NONE SEEN #/HPFRBC Urine0-20-2 #/HPFBacteria UrineTRACENONE SEEN #/HPFMucus UrineNONE SEEN NONE SEENSquamous Epithelial Cell UrineFEWNONE/RARE #/LPFCrystals Seen?None Seen None Seen #/HPFCast Seen?NONE SEENNONE SEEN #/LPFUrine Culture IndicatedYES-[facility] Performing Lab:see noteML - [facility] LBCBC AUTO DIFF Reviewed date:12/15/2024 12:56:51 PM Interpretation: Performing Lab: Notes/Report: [facility] ,White Blood Count10.04.0-11.0 10 3/uLRed Blood Count3.334.70-6.10 10 6/uL Bhkinplvqr32.114.0-18.0 g/oAObnwmuiexc23.442.0-54.0 %Mean Corpuscular Volume 100.380.0-94.0 fLMean Corpuscular Vivnjodhit43.325.9-34.0 pgMean Corpuscular HGB Conc33.229.9-35.2 g/dLRed Cell Distribution Width15.011.0-15.0 %Platelet Count 560935-275 10 3/uLMean Platelet Qpskjr62.09.5-13.5 fLNeutrophils Percent Auto 75.643.0-75.0 %Lymphocytes Percent Auto13.220.5-60.0 %Monocytes Percent Auto6.7 1.7-12.0 %Eosinophils Percent Auto3.90.9-7.0 %Basophils Percent Auto0.30.2-2.0 % Immature Granulocytes Pct Auto0.30.0-0.5 %Neutrophils Absolute Auto7.51.4-6.5 10 3/uLLymphocytes Absolute Auto1.31.2-3.8 10 3/uLMonocytes Absolute Auto0.70.3-0.8 10 3/uLEosinophils Absolute Auto0.40.0-0.7 10 3/uLBasophils Absolute Auto0.00.0- 0.1 10 3/uLImmature Granulocytes Abs Auto0.030.00-0.03 10 3/uLPerforming Lab:see noteML - [facility] LBXR elbow RT min 3V Reviewed date:08/22/2024 09:36:42 PM Interpretation: Performing Lab: Notes/Report: Source Facility: [facility]-[address] [place] [address] [place] [address] XRay Report Signed Patient: SHAHRZAD MCNAIR MR#: [id number] : 1945 Acct:[id number] Age/Sex: 78 / M ADM Date: 08/22/24 Loc: ER Attending Dr: Ordering Physician: Chevy Wood Date of Service: 08/22/24 Procedure(s): XR elbow RT min 3V Accession Number(s): [id number] cc: Chevy Wood; Zachariah Avila M.D. [place] [id number] Patient Name: SHAHRZAD MCNAIR MRN: [id number] date: 1945 Sex: M Assigned Patient Location: ED.MAIN Current Patient Location: Accession/Order Number: [id number] Exam Date: 08/22/2024 08:07 Report Date: 08/22/2024 [...] Fuentes M.D. 08/22/2024 8:08 AM Dictation Location: [place] [address] Electronically authenticated by: [id number] Y Date: 08/22/2024 08:08 Dictated By: Robbie Fuentes M.D. Signed By: 08/22/24 0811 DD/ TD/TT: Pool Nurse:XR hip RT 2V w/ pelvis Reviewed date:08/22/2024 09:36:42 PM Interpretation: Performing Lab: Notes/Report: Source Facility: [place] [address] XRay Report Signed Patient: SHAHRZAD MCNAIR MR#: [id number] : 1945 Acct:[id number] Age/Sex: 78 / M ADM Date: 08/22/24 Loc: ER Attending Dr: Ordering Physician: Chevy Wood Date of Service: 08/22/24 Procedure(s): XR hip RT 2V w/ pelvis Accession Number(s): [id number] cc: Chevy Wood; Zachariah Avila M.D. [facility] [place] [address] Patient Name: SHAHRZAD MCNAIR MRN: [id number] date: 1945 Sex: M Assigned Patient Location: ED.MAIN Current Patient Location: Accession/Order Number: [id number] Exam Date: 08/22/2024 08:06 Report Date: 08/22/2024 [...] Fuentes M.D. 08/22/2024 8:07 AM Dictation Location: [place] [address] Electronically authenticated by: [id number] Y Date: 08/22/2024 08:07 Dictated By: Robbie Fuentes M.D. 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 Measurements Intervals [place] Rate: 57 P: 50 NV: 192 QRS: 47 QRSD: 84 T: 51 QT: 526 QTc: 520 Interpretive Statements 1100 Sinus rhythm 8304 Long QTc interval 9150 abnormal ECG Compared to ECG 04/05/2024 07:36:09 No significant changes Electronically Signed On 08-22-2024 7:09:37 EDT by ANCA BUTLER M.D. Dictated By: ANCA BUTLER Signed By: 08/22/2410 DD/ 7 TD/TT: Pool Nurse:PROF DORAN 8 ([facility]) Reviewed date:08/22/2024 09:36:42 PM Interpretation: Performing Lab: Notes/Report: [facility] ,Clwymh236304-706 mmol/LPotassium4.03.5-5.1 mmol/JJhfmrxvx61585-188 mmol/LCarbon Uraiwxw95.921.0-32.0 mmol/LAnion Gap11.3Xkcbnay61212-814 mg/dLBlood Urea Dqqwuhwi59.07.0-18.0 mg/dLCreatinine1.480.70-1.30 mg/dLEstimated GFR ( Ptwbhch60>=60 mL/min/1.73m 2Estimated GFR (Non- Ame46>=60 mL/min/1.73m 2 BUN Creatinine Ratio10.0Ughorep2.98.5-10.1 mg/dLPerforming Lab:see noteML - [facility] LBCBC AUTO DIFF Reviewed date:08/22/2024 09:36:42 PM Interpretation: Performing Lab: Notes/Report: [facility] ,White Blood Count7.24.0-11.0 10 3/uLRed Blood Count3.414.70-6.10 10 6/uL Ifieihagys20.714.0-18.0 g/gJMqkrvuspif19.142.0-54.0 %Mean Corpuscular Volume 100.080.0-94.0 fLMean Corpuscular Ysdkaqivsv24.325.9-34.0 pgMean Corpuscular HGB Conc34.329.9-35.2 g/dLRed Cell Distribution Width15.711.0-15.0 %Platelet Count 077782-146 10 3/uLMean Platelet Volume9.99.5-13.5 fLNeutrophils Percent Auto61.9 43.0-75.0 %Lymphocytes Percent Auto24.120.5-60.0 %Monocytes Percent Auto8.11.7- 12.0 %Eosinophils Percent Auto4.70.9-7.0 %Basophils Percent Auto0.40.2-2.0 % Immature Granulocytes Pct Auto0.80.0-0.5 %Neutrophils Absolute Auto4.41.4-6.5 10 3/uLLymphocytes Absolute Auto1.71.2-3.8 10 3/uLMonocytes Absolute Auto0.60.3-0.8 10 3/uLEosinophils Absolute Auto0.30.0-0.7 10 3/uLBasophils Absolute Auto0.00.0- 0.1 10 3/uLImmature Granulocytes Abs Auto0.060.00-0.03 10 3/uLPerforming Lab:see noteML - [facility] LBCA echo doppler complete Reviewed date:04/10/2024 02:49:18 PM Interpretation: Performing Lab: Notes/Report: Source Facility: [place] [address] Cardiology Report Signed Patient: SHAHRZAD MCNAIR MR#: [id number] : 1945 Acct:[id number] Age/Sex: 78 / M ADM Date: 04/05/24 Loc: MS 213-[address]: Eulalio Valencia D.O. Ordering Physician: Eulalio Valencia D.O. Date of Service: 04/05/24 Procedure(s): CA echo doppler complete Accession Number(s): [id number] cc: Zachariah Avila M.D.; Eulalio Valencia D.O. Patient Name: SHAHRZAD MCNAIR MR#: [id number] : 1945 Exam Date: 04/05/2024 Ordering Doctor: [...] Signed By: 04/09/24 1326 DD/ 1325 TD/TT: Pool Nurse:IRON AND TIBC Reviewed date:02/09/2025 08:04:35 PM Interpretation: Performing Lab: Notes/Report: [facility] ,Iron48.065.0-175.0 ug/dLTotal Iron Binding Ncgzguzn889.0250.0-450.0 ug/dL Percent Iron Jlbvunukpt67.6Performing Lab:see noteML - [facility] LB Reason For Referral Reason Schedule COLUMBA please Diagnosis 1 Lung cancer (C34.90) Referral Organization [facility] Referring Provider First Name Desiree Referring Provider Last Name Polo Referring Provider Speciality [facility] Referred Organization [facility] Referred Provider Iman Muñoz Referred Address [address],[place] [address],[place], [place],[address], Referred Provider Specialty Hematology/O ncology Referral Priority Routine Medications Medication SIG (Take, Route, Frequency, Duration) Notes Start Date End Date Status Aspirin Adult Low Dose 81 MG 1 tablet Orally Onc e a day UnknownAtorvastatin Calcium 80 MG1 tablet Orally Once a day; Duration: 90 days 4ActiveMagnesium Oxide 400 MG1 tablet with food Orally bidUnknown Lisinopril 10 MGTAKE 1/2 TABLET BY MOUTH ONCE EVERYDAY; Duration: 90Active NitroglycerinUnknownVitamin D (Ergocalciferol) 1.25 MG (47783 UT)TAKE 1 CAPSULE BY MOUTH ONCE PER WEEK Oral; Duration: 35 daysActiveSotalol HCl 80 MGTAKE 1 TABLET BY MOUTH EVERY 12 HOURS FOR 30 DAYS; Duration: 90Unknown Social History Tobacco Use: Social History Observation Description Date Details (start date - stop date) Former Smoker 03/23/1963 - 03/23/2019 Tobacco Control (Standard) Question Answer Notes Tobacco use: Former smoker When did you start smoking?03/23/1963When did you stop smoking?03/23/2019How long has it been since you last smoked?1-5 yearsAdditional Findings: Tobacco fzv-bcgyXg-asds heavy cigarette smoker (40+/day)AUDIT-C (Standard) Question Answer Notes Did you have a drink containing alcohol in the p ast year? No Pkywxw4QjjjglegvzzjtwYvhtoxat Problems Problem Type SNOMED Code ICD Code Onset Dates Problem Status W/U Status Risk Notes Problem Atrial fibrillation (03586794) Atrial fib rillation (I48.91) ActiveconfirmedProblemHyperlipidaemia (62680174)Hyperlipemia (E78.5)Active confirmedProblemHypertension (61588689)Hypertension (I10)ActiveconfirmedProblem COPD - Chronic obstructive pulmonary disease (16403149)COPD (chronic obstructive pulmonary disease) (J44.9)ActiveconfirmedProblemStroke (441080239)Stroke (I63.9)ActiveconfirmedProblemAnemia (513672560)Anemia (D64.9)Activeconfirmed ProblemMyocardial infarction (84992229)AZ (myocardial infarction) (I21.3)Active confirmedProblemLung cancer (752100001)Lung cancer (C34.90)Activeconfirmed ProblemHilar mass (463013009)Hilar mass (R91.8)ActiveconfirmedProblemExpressive aphasia (793434049)Expressive aphasia (R47.01)ActiveconfirmedProblemAltered mental status (055511694)Altered mental status (R41.82)ActiveconfirmedProblem Hallucinations (8531969)Hallucinations (R44.3)ActiveconfirmedProblemMetabolic encephalopathy (20635919)Acute metabolic encephalopathy (G93.41)Activeconfirmed ProblemEssential hypertension (49743575)BP (high blood pressure) (I10)Active confirmed Vital Signs Blood pressure diastolic 68 mm Hg 01/24/2025 Rlemxx86 in01/24/2025lood pressure ubuqmpvm363 mm Hg01/24/20253104Svbuff324 lbs 01/24/2025BMI22.95 kg/m201/24/2025 Encounters Encounter Location Date Provider Diagnosis [facility] [address] [place] [address] 04/11/2024 Desiree Peña Hypertension I10 [facility] [address] [place] [address] 07/12/2024 Desiree Peña Hypertension I10 [facility] [address] [place] [address] 12/23/2024 Desiree ePña UTI (urinary tract infection) N39.0 [facility] [address] [place] [address] 01/24/2025 Desiree Peña Hilar mass R91.8 ; Hallucinations R44.3 ; Anemia D64.9 and Rib fracture S22.39XA [facility] [address] [place] [address] 04/06/2024 Desiree Peña [facility] [place] [address] 09/27/2024Pamelorin McnealmerHypertension E82MlqicmwUchealth Highlands [facility] [place] [address]/Pamela [facility] [place] [address]/Pajovona [facility] [place] [address]/[facility] [facility] [place] [address]/[facility] [address] [facility] [place] [address]/[facility] [facility] [place] [address]/[facility] [facility] [address]/05/2024[facility] [facility] [place] [address]/12/2024Pa[facility] cancer C34.90 and Hallucinations R44.3B[facility] [facility] [place] [address]/01/2025[facility] [address] [place] [address]/[facility] [facility] [place] [address]/ [facility] [facility] [address]/[facility] [place] [place] [address]/[facility] [place] [facility] [place] [place] [address]/[facility] Hypertension I10 ; Hyperlipemia E78.5 and Anemia [...] wt 01/24/2025Hallucinations (ICD-10 - R44.3)no more holding kcdhboap98/08/2025 Hypertension (ICD-10 - I10)01/30/2025Lung cancer (ICD-10 - C34.90)01/30/2025 Hallucinations (ICD-10 - R44.3)03/08/2025Hypertension (ICD-10 - I10)03/08/2025 Hyperlipemia (ICD-10 - E78.5)03/08/2025nemia (ICD-10 - D64.9)01/24/2025nemia (ICD-10 - D64.9) repeat labs 1m check iron has had 2 colonoscopies, does not want another 01/24/2025Rib fracture (ICD-10 - S22.39XA) tripped taking tylenol 01/24/2025Otherrepeat cbc, cmp, check iron 1m Plan Of Treatment Pending Test Test Name Order Date HEMOGLOBIN A1C (GLYCO) 09/27/2024 INSULIN, TOTAL 09/27/2024 LIPID PANEL (CHOL/TRIG/HDL/LDL) 09/28/19 25 CBC WITH DIFF (EXP 01/2025) 04/11/2024 URIC ACID 09/27/2024 COMPREHENSIVE METABOLIC PROFILE WITH GFR 03/08/2025 CBC W/AUTO DIFF 03/08/2025 PSA, TOTAL 04/11/2024 Holter Monitor 24 Hour 10/21/2023 MRI Brain w/ + w/o Contrast 01/30/2025 IRON 03/08/2025 THYROID PANEL (T4/TSH/FREE T3) 5 PSA, SCREENING 09/27/2024 CMP (COMP MET WILCOX) w/eGFR CKD-EPI 2024 CMP (COMP MET WILCOX) w/eGFR CKD-EPI 2024 CBC WITH DIFF 09/27/2024 Insurance Providers Payer Name Payer Address Payer Phone Subscriber Number Group Number Insured Name Patient Relationship to Insured Coverage Start Date Coverage End Date [place] [address] [place] [address] [id number] Julia cMnair - patient is the insured Medical (General) History Medical History History ICD Code Hypertension I10 COPD (chronic obstructive pulmonary dise ase) J44.9 Atrial fibrillation I48.91 Stroke I63.9 AZ (myocardial infarction) I21.3 Surgical History Surgery Date(Month/Year) CHOLECYSTECTOMY Plate and Pin in Right ElbowLumbar surgery- disc h9Lwitczlv- bilateral TonsillectomyLung wlbrvp7801/30/2025Hospitalization History Reason Date(Month/Year) Encephalopathy 09/2023
--- OUTSIDE RECORDS SUMMARY | 2025-03-08 09:34 | XMS_ITS | Clinical Summary ---
Author Organization [facility] Address [address] [place] [address] Care Team Providers Care Certified Indoor Environmentalist Name Role Phone Unavailable Primary Care Provider Unavailabl e Allergies Active AllergyReactionsCriticalityNoted DateCommentsCoconutAnaphylaxisHigh 01/30/20255704QvbxemdxRgpplpbvptpyrx36/10/2025 Medications MedicationSigDispense QuantityRefillsLast FilledStart DateEnd DateStatus aspirin [...] Problems No known active problems Encounters DateTypeDepartmentCare SfhaFvrsmlwmkxb42/10/2025 11:33 AM EST - 01/30/2025 11:59 PM ESTHospital Encounter [facility] X-[facility] Imaging [address] [place] [address] Discharge Disposition: Home or Self Care ()01/30/2025 10:03 AM EST - 01/30/2025 11:32 AM ESTHospital Encounter [facility] X-[facility] Imaging [address] [place] [address] Pain Discharge Disposition: Home or Self Care ()01/30/2025 9:59 AM ESTAnesthesia Event [facility] Main Operating Room [address] [place] [address] Saurabh Nick MD Eisenman-Patel, Taylor, MD 01/30/2025 8:16 AM ESTHospital Encounter [facility] [place] [address] Josefa Shah MD Rooney, Thomas, MD Willis, Davontae, MD Lung mass Discharge Disposition: Home or Self Care ()01/30/20257101Kgpotx66/29/2025Orders Only Pulmonary [address] [place] [address] Josefa Shah MD Lung mass (Primary Dx)01/18/2025 - 01/18/2025 11:59 PM EDTHospital Encounter [facility] Rad[place] [address] Discharge Disposition: Home or Self Care ()01/18/2025Orders Only [facility] [address] [place] [address] Aneta Mccray MA from Last 3 [...] and Gender InformationValueDate Recorded Sex Assigned at LikumKvkd19/10/2025 8:19 AM ESTLegal BjvTnkk1709/18/2021 11:03 PM EDTGender HxtxkpxgYzao31/10/2025 8:19 AM ESTSexual OrientationHeterosexual or Nbmdvlqc27/10/2025 8:19 AM EST Last Filed Vital Signs Vital SignReadingTime TakenCommentsBlood Llyedmig346/8101/30/2025 12:15 PM EST Yicmd721301/30/2025 12:15 PM GGMAtohllhxzux16 ??C (96.8 ??F)01/30/2025 11:28 AM ESTRespiratory Lrfo494604/01/2024 11:30 AM ESTOxygen Uaphpzzlbg52%01/30/2025 12:15 PM ESTInhaled Oxygen Concentration--Azgnft11.7 kg (175 lb 11.3 oz)01/30/2025 9:32 AM JMGZyteri580.4 cm (6' 1 )01/30/2025 9:32 AM ESTBody Mass Index23.18 01/30/2025 9:32 AM EST Plan of Treatment Health MaintenanceDue DateLast DoneCommentsDiabetes: Hemoglobin A1C1945 Medicare Annual Wellness (AWV)1945Diabetes: Retinopathy Screening 1956Depression Vkaizrlcb10/03/1959Diabetes: Urine Protein Screening 1965Pneumococcal Vaccine: 50+ Years (1 of 2 - PCV)1965Adult Tetanus 1968Zoster Vaccines (1 of 2)1996Fall Risk Wactyhvjb81/03/2012COVID- 19 Vaccine ( season), 06/12/2020, 05/21/2020 Influenza Vaccine (#1)0213JpzxbalwiayRzjcoersglfx17/27/2020 Colorectal Cancer ScreeningDiscontinuedCT ColonographyDiscontinuedFIT-DNA DiscontinuedFITDiscontinuedFOBTDiscontinuedHIB VaccinesAged OutNo [...] CHEST 1 VIEWSTAT 01/30/2025 12:16 PM EST MXNITDQBMGLRUlaysgj64/10/2025 11:26 AM EST Lung mass [place] LESS THAN 1 HOUR EEZVSALBSTWFPGEjaltfh48/10/2025 11:00 AM EST Pain NON-CONE SEWER CYTOLOGY - CELLULAR TWFXOqaxozr62/10/2025 10:30 AM EST Lung mass HISTOLOGY - TISSUE BJAGMsvbvaj97/10/2025 10:20 AM EST Lung mass DE AN ELECTIVE ENDOTRACHEAL QBMJCYFmsvjuo32/10/2025 10:08 AM EST POCT GLUCOSE METER UNSOLICITED NUJDTNANapdktr68/10/2025 8:[address] TRANSFER OF OUTSIDE CGHWOQhwmskl35/29/2025 12:00 AM EDT from Last 3 Months [...] Jimenez MD. Authorizing ProviderResult TypeResult StatusMohamed Alyssa LEWIMG XR PROCEDURES Final Result * Bronchoscopy with [...] Pulmonary Medicine Pulmonary and Critical Care Medicine [facility] Authorizing ProviderResult TypeResult StatusMohamfranky Shah MDENDOSCOPY PROCEDURE ORDERABLESFinal Result * [place] [...] Electronically signed: Saurabh Rendon. Authorizing ProviderResult TypeResult StatusMokira FOXG FLUOROSCOPY PROCEDURESFinal Result * Non-obstetrics gyn physician cytology - cellular exam (01/30/2025 10:30 AM EST)ComponentValueRef RangeTest MethodAnalysis TimePerformed AtPathologist SignatureCase ReportNon- gynecologic Cytology ?Case: [id number] ? Authorizing Provider: ??Josefa Shah MD ?Collected: ? 01/30/2025 1030 ? Ordering Location: ? [facility] Main Operating Room ?? Received: ?01/30/2025 1128 ? Pathologist: ? Agnes Noonan MD ? Specimens: ?? A) - Lymph Node, Station 7 ? B) - Lymph Node, Station 4L ? 02/01/2025 1:57 PM [facility] ([facility])Final DiagnosisA. Lymph node, station 7, EBUS-guided fine needle aspiration: - Negative for metastatic malignancy. - Cellular evidence of a lymph node. B. Lymph node, station 4L, EBUS-guided fine needle aspiration: - Negative for metastatic malignancy. - Cellular evidence of a lymph node.02/01/2025 1:57 PM [facility]) at 1357 EST CommentSee also concurrent surgical pathology case, [id number]/01/2025 1:57 PM [facility] ([facility])Microscopic DescriptionA. Satisfactory for evaluation. Examination of the prepared smears and cell block reveals scant lymp hocytes, benign bronchial cells, blood and debris. B. Satisfactory for evaluation. Examination of the ThinPrep slide and cell block reveals abundant lymphocytes, bronchial cells and debris.02/01/2025 1:57 PM EST [facility] ([facility])Clinical InformationOrder Diagnoses R91.8 - Lung mass [ICD-10-CM]02/01/2025 1:57 PM [facility] ([facility]) Intraoperative ConsultationA. Lymph Node, Station 7. Rapid on-site evaluation was performed by Neal Wood MD. The material examined during rapid on-site evaluation was deemed adequate for diagnosis. Pass #1: Adequate Pass #2: Inadequate Pass #3: Defer - cell block Pass #4: Defer - cell block *Only select material is examined during the on-site evaluation. Final diagnosis is pending the review of all material submitted.*02/01/2025 1:57 PM [facility] ([facility])Gross DescriptionA. 2 air-dried slides, 2 alcohol-fixed slides, 30 mL CytoLyt with clear, pale red fluid and red andwhite tissue fragments. B. 20 mL CytoLyt with hazy, red fluid and white and red flecks.02/01/2025 1:57 PM [facility] ([facility])Specimen (Source)Anatomical Location / LateralityCollection Method / VolumeCollection TimeReceived TimeFine Needle AspirationStructure of subcarinal lymph node / Yagoikm1901/30/2025 10:30 AM EST 01/30/2025 11:28 AM ESTSpecimen obtained by fine needle aspiration procedure (specimen)Left lower paratracheal lymph node / Jalazcw1301/30/2025 10:54 AM EST 01/30/2025 11:48 AM EST Narrative Authorizing ProviderResult TypeResult StatusMohamed Alyssa MARQUES CYTOLOGY ORDERABLESFinal ResultPerforming OrganizationAddressCity/State/ZIP CodePhone Number [facility] ([facility]) [address] [place] [address] * Histology - tissue exam (01/30/2025 10:20 AM EST)ComponentValueRef RangeTest MethodAnalysis TimePerformed AtPathologist SignatureCase ReportSurgical Pathology ?Case: [id number] ? Authorizing Provider: ??Josefa Shah MD ?Collected: ? 01/30/2025 1020 ? Ordering Location: ? [facility] Main Operating Room ?? Received: ?01/30/2025 1125 ? Pathologist: ? Margarita Dailey MD ? Specimen: ?Lung, Left Upper Lobe, cryo ? 03/06/2025 8:34 AM [facility] ([facility])Addendum - This case ([id number]) was sent to [facility] for the [employer] xT tumor panel, PDL1 28-8, PDL1 SP142, PDL1 SP263, and HER2. Findings were as follows: Somatic: Potentially Actionable PIK3CA: E39K KRAS: G12V Somatic: Biologically Relevant TP53: R273H CDKN2A: E120* VHL: W8* CREBBP: Q691* PTEN: Q245* SMAD4: Q334* Pertinent Negatives EGFR, BRAF, ALK, ROS1, RET, MET, ERBB2 (HER2) Immunotherapy Markers Tumor Mutational [place] (TMB): High (12.1 m/MB) Microsatellite Instability Status (MSI): Stable PD-L1 (28-8): 1% TC PD-L1 (SP142): <1% TC, 2% IC PD-L1 (SP263): 1% TC HER2 by IHC: 1+ Comment: See separate [facility] xT report for a complete description with interpretive content and potential clinical trials.03/06/2025 8:34 AM [facility] ([facility])Addendum electronically signed by Margarita Dailey MD on 03/06/2025 at 0834 OFGHgmyraob80/18/25 - This case ([id number]) was sent to [facility] for PD-L1 22C3 IHC with tumor proportion score (TPS) interpretation and read by Chidi Paul MD. The result reads as follows: Tumor Proportion Score: 1% Adequacy of specimen: Lzixujee00/15/2025 8:34 AM [facility] ([facility]) Addendum electronically signed by Margarita Dailey MD on 02/07/2025 at 1509 EST Final DiagnosisLung, left upper lobe, transbronchial biopsy: - Squamous cell carcinoma.03/06/2025 8:34 AM [facility] ([facility]) at 1308 ESTClinical InformationOrder Diagnoses R91.8 - Lung mass [ICD-10-CM] 03/06/2025 8:34 AM [facility] ([facility])CommentPD-L1 requested and will be reported separately as an addendum. Please see concurrent cytology report [id number]. Outside Upholsterer Dr. Noonan, who concurs with the above diagnosis.03/06/2025 8:34 AM [facility] ([facility])Gross DescriptionA. Lung, Left Upper Lobe. The specimen is received in formalin labeled Ciaran Mcnair, lung BILL, cryo. It consists of multiple feathery, bulky fragments of enrique-pink soft tissue admixed with hemorrhagic material, 1.0 x 0.9 x0.3 cm in aggregate. The specimen is filtered and entirely submitted in 1 cassette. Megan Bruno, Pathologists' Anodiser qqlhykd8703/06/2025 8:34 AM [facility] ([facility])Intraoperative ConsultationA. Lung, Left Upper Lobe. Immediate adequacy was performed by Dr. Wood. Pass #1: Adequate 03/06/2025 8:34 AM [facility] ([facility])Microscopic Description Microscopic examination performed.03/06/2025 8:34 AM [facility] ([facility])Specimen (Source)Anatomical Location / LateralityCollection Method / VolumeCollection TimeReceived TimeBiopsyStructure of upper lobe of left lung / Uopanuh1301/30/2025 10:20 AM EST01/30/2025 11:25 AM EST Narrative Authorizing ProviderResult TypeResult StatusMohamfranky MARQUES PATHOLOGY ORDERABLESEdited Result - FinalPerforming OrganizationAddressCity/State/ZIP Code Phone Number [facility] ([facility]) [address] [place] [address] * DE AN ELECTIVE ENDOTRACHEAL AIRWAY (01/30/2025 10:08 AM EST) Narrative Saurabh Nick MD - 01/30/2025 10:08 AM EST Saurabh Nick MD 01/30/2025 10:41 AM Airway Date/Time: 01/30/2025 10:08 AM Reason: elective Airway not difficult General Information and Staff Patient location during procedure: OR Anesthesiologist: Saurabh Nick MD Resident/SURVEY METHODOLOGIST/CAA: Bishnu Viera MD Performed: resident/SURVEY METHODOLOGIST/CAA Learner assisted: GABBY Jade assisted with bagging [...] EST)ComponentValueRef Range Test MethodAnalysis TimePerformed AtPathologist SignatureGlucose THX785(H)70 - 105 mg/dL01/30/2025 9:02 AM [facility] ([facility])Comment:mschober Specimen (Source)Anatomical Location / LateralityCollection Method / Volume Collection TimeReceived TimeBloodCapillary blood specimen / Cpnmdjd6201/30/2025 8:46 AM EST01/30/2025 9:02 AM EST Narrative [facility] ([facility]) - 01/30/2025 9:02 AM EST Waived Testing in the ED is performed under the ED CLIA certificate #[id number]. Authorizing ProviderResult TypeResult StatusMohamed Alyssa LEWLAB BLOOD ORDERABLESFinal ResultPerforming OrganizationAddressCity/State/ZIP CodePhone Number [facility] ([facility]) [address] [place] [address] * CT transfer of outside films (01/18/2025 12:00 AM EDT)Specimen (Source) Anatomical Location / LateralityCollection Method / VolumeCollection Time Received Time Narrative IMAGING - 01/18/2025 10:58 AM EDT This order has been auto-finalized and does not contain a result. Authorizing ProviderResult TypeResult StatusMohamed Ommariselai MDIMG CT PROCEDURES Final ResultPerforming OrganizationAddressCity/State/ZIP CodePhone Number [facility] from Last 3 Months Insurance
[2025-03-08 10:05] LABS: Hematocrit 30.2 % (42.0-54.0); Hemoglobin 10.1 g/dL (14.0-18.0); Immature Granulocytes Abs Auto 0.06 10^3/uL (0.00-0.03); Immature Granulocytes Pct Auto 0.6 % (0.0-0.5); Lymphocytes Absolute Auto 1.0 10^3/uL (1.2-3.8); Mean Corpuscular HGB Conc 33.4 g/dL (29.9-35.2); Mean Corpuscular Hemoglobin 32.1 pg (25.9-34.0); Mean Corpuscular Volume 95.9 fL (80.0-94.0); Platelet Count 280 10^3/uL (150-450); Red Blood Count 3.15 10^6/uL (4.70-6.10); White Blood Count 10.7 10^3/uL (4.0-11.0)
[2025-03-08 11:00] LABS: Alanine Aminotransferase 21 U/L (16-63); Albumin Globulin Ratio 0.7; Albumin Level 2.9 g/dL (3.4-5.0); Alkaline Phosphatase 148 U/L (46-116); Anion Gap 14.5; Aspartate Amino Transferase 13 U/L (15-37); Blood Urea Nitrogen 19.0 mg/dL (7.0-18.0); Calcium 8.9 mg/dL (8.5-10.1); Carbon Dioxide 26.1 mmol/L (21.0-32.0); Chloride 99 mmol/L (98-107); Estimated GFR (African America 42 (>=60 mL/min/1.73m^2); Estimated GFR (Non-African Ame 35 (>=60 mL/min/1.73m^2); Globulin 4.1 g/dL; Glucose 119 mg/dL (74-106); Iron 35.0 ug/dL (65.0-175.0); Potassium 4.6 mmol/L (3.5-5.1); Sodium 135 mmol/L (136-145); Total Protein 7.0 g/dL (6.4-8.2)
== END 2025-03-08 09:26 | disposition home or self-care (01) ==
LOC: LAB 09:29
PROVIDERS: PCP Family Medicine; Visit Provider Nurse Practitioner Family
DX: E78.5 Hyperlipidemia, unspecified (principal); I10 Essential (primary) hypertension; D64.9 Anemia, unspecified; D50.9 Iron deficiency anemia, unspecified
CPT/HCPCS: 36415; 80053; 83540; 85025